=== PATIENT | female | born 1985 | race Caucasian/White ===

== ENCOUNTER 2016-08-24 17:33 | Inpatient (IN) | payer OTHER ==
[~2016-08-24] VITALS: Ht 167.6 cm; Wt 81.6 kg
[~2016-08-24 17:33] MED LIST: ESCI10TA17 PO; FLUT0.15 NAE; LISI40TA PO; MYCO250C7 PO; TRAZ50TA35 PO; ZOLP5TAB6 PO
[2016-08-24] MEDS ORDERED: BENZ100C18 PO (19:40)
[2016-08-24] MEDS ORDERED: DOXY100C76 PO (19:40)
[2016-08-24 20:25] LABS: HEMATOCRIT 18.3 % (37-47); MEAN CELL VOLUME 85.5 fL (80-100); MEAN CORPUSCULAR HGB CONC 33.9 g/dl (32-36); MEAN PLATELET VOLUME 9.3 fL (7.4-10.4); PLATELET COUNT 82 K/uL (130-400); RED BLOOD COUNT 2.14 M/uL (4.2-5.4); WHITE BLOOD COUNT 5.72 K/uL (4.8-10.8)
--- NOTE | 2016-08-24 20:26 | DIAGNOSTIC IMAGING REPORT ---
SINGLE VIEW CHEST CLINICAL HISTORY: Atypical chest pain. The patient feels that the left tunneled catheter changed position. FINDINGS: An AP, portable, upright chest radiograph is compared to study dated 07/12/2016. The examination is mildly degraded by portable technique and patient rotation. A left subclavian central venous catheter has not significantly changed in position from 07/12/2016. The tip projects at the cavoatrial junction. The cardiomediastinal silhouette is unremarkable. The lungs and pleural spaces are clear. No pneumothorax is seen. The bony thorax is grossly intact. IMPRESSION: 1. No acute cardiopulmonary abnormality. 2. The left subclavian central venous catheter has not significantly changed in position from 07/12/2016. Electronically signed by: North Quintero M.D. 08/24/2016 8:25 PM
[2016-08-24 20:36] LABS: BASO % 0.2 %; BASO ABS # 0.01 K/uL (0-0.2); COMPLETE YES; EOS % 2.8 %; IG% 0.2 %; LYMPH % 13.8 %; LYMPH ABS # 0.79 K/uL (1.2-3.4); MONO % 4.4 %; NEUT % 78.6 %; OVALOCYTES 1+
[2016-08-24 20:47] LABS: URINE APPEARANCE CLOUDY (CLEAR); URINE BILIRUBIN NEG (NEG); URINE COLOR YELLOW; URINE EPITHELIAL CELL AUTO >30 /lpf (0-5); URINE NITRITE NEG (NEG); URINE SPECIFIC GRAVITY 1.007 (1.000-1.030); UROBILINOGEN NEG (NEG); ZZUR CULT IF INDIC CLEAN CATCH YES
[2016-08-24 20:51] LABS: MANUAL MICROSCOPIC REQUIRED? NO; REVIEW REQ? NO
[2016-08-24] MEDS ORDERED: HYDROCODONE/ACETAMOPHEN 5/325MG TAB PO STA (21:30)
[2016-08-24 21:43] LABS: PREG INTERNAL NEGATIVE QC NEG CLEAR BACKGROUND; PREG INTERNAL POSITIVE QC POS CONTROL LINE
[2016-08-24] MEDS ORDERED: SODIUM BICARB 8.4% INJ 50 MEQ/50 ML SYR IV STA (22:04)
[2016-08-24] MEDS ORDERED: DXY100 PO (22:44)
--- NOTE | 2016-08-24 22:47 | History and Physical ---
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 Pt reports that she was lifting something yesterday when she felt like her dialysis catheter "moved". Since that time she has been experiencing 8/10 pain around her catheter. The pain is worse with movement. She has not noticed any erythema or drainage from the area. Patient was recently diagnosed with bronchitis and she was started on 10- day course of doxy as well as Tessalon Perles and albuterol inhaler PRN. She notes that her bronchitis sxs are already improving. Pt is supposed to dialyze MWF and follow with Dr. Jo however she has not gone to dialysis for 2 weeks because she "doesn't like leaving her house" and "the van doesn't come sometimes ". Pt has a history of anemia requiring transfusions in the past although she has never had a GI bleed. She denies ever having a colonoscopy or EGD. Pt denies fever/chills, diaphoresis, chest pain, palpitations, syncope, SOB, abd pain, N/V, constipation, diarrhea, melena, hematochezia, dysuria, hematuria, LE edema, calf pain or lightheadedness/dizziness. In the ED, BP is elevated. HgB 6.2. K+ 5.2. Creat 21. Calcium 5.0. CXR negative for acute process with no evidence of catheter displacement. Pt appears stable and will be admitted for further evaluation and treatment. Past Medical/Surgical History Medical Problems: (1) DM2 (diabetes mellitus, type 2) Status: Chronic (2) Focal segmental glomerulosclerosis Status: Chronic (3) HTN (hypertension) Status: Chronic (4) Immunocompromised Status: Chronic (5) Kidney disease Status: Chronic (6) Migraine Status: Chronic Surgical Problems: (1) H/O knee surgery Status: Chronic (2) H/O tubal ligation Status: Chronic (3) H/O: Status: Chronic (4) Kidney transplant status, living related donor Status: Chronic Social History Problems: (1) Kidney transplanted Status: Chronic Family History Heart disease Hypertension Social History Smoking Status: Current Every Day Smoker (3 cigarettes per day down from 1 ppd x 12 years ) Alcohol Use: none Drug Use: none Marital Status: in relationship (engaged ) Housing status: lives with significant other (fiancee) Occupational Status: disabled Immunizations History of Influenza Vaccine: No History of Tetanus Vaccine?: Yes History of Pneumococcal: Yes History of Hepatitis B Vaccine: Unknown Multi-Drug Resistant Organisms History of MDRO: No Allergies Coded Allergies: Cefaclor (Verified Allergy, Unknown, Rash, 08/24/16) Reported by PT. Home Medications Scheduled Calcium Acetate (Phoslo 667 Mg), 1,334 MG PO TIDM Calcium Carbonate (Tums), 3 TAB PO HS Doxycycline Hyclate (Doxycycline Hyclate), 100 MG PO BID Escitalopram (Lexapro), 20 MG PO QAM Famotidine (Pepcid), 40 MG PO QAM Lisinopril (Zestril), 40 MG PO QAM Mirtazapine (Remeron), 30 MG PO HS Mycophenolate Mofetil (Mycophenolate Mofetil), 250 MG PO BID Trazodone Hcl (Trazodone), 50 MG PO HS Scheduled PRN Albuterol Hfa (Ventolin Hfa), 2 PUFFS INH QID PRN for RN Benzonatate (Tessalon Perles), 100 MG PO TID PRN for Cough Review of Systems Constitutional: No chills, No fatigue, No fever, No sweats, No weakness Eyes: No worsening of vision Respiratory: + cough, + problem reported (pain around catheter in L chest ), No shortness of breath, No sputum, No wheezing Cardiovascular: No chest pain, No claudication, No edema, No palpitations Abdomen: No GI bleeding, No constipation, No diarrhea, No nausea, No pain, No vomiting Musculoskeletal: No calf pain, No swelling Genitourinary - Female: No dysuria Neurologic: No weakness Psychiatric: No depression symptoms Endocrine: No fatigue Hematologic / Lymphatic: No abnormal bleeding/bruising Integumentary: No new/changing skin lesions Physical Exam Vital Signs Date Time Temp Pulse Resp B/P Pulse Ox O2 Delivery O2 Flow Rate FiO2 08/24/16 18:58 114 18 165/112 100 Room Air 08/24/16 17:40 37.0 85 18 159/89 100 General Appearance: WD/WN, no apparent distress, + pertinent finding (Pt is laying in bed in NAD) Head: normocephalic, atraumatic Eyes: normal inspection ENT: hearing grossly normal Neck: supple Respiratory/Chest: lungs clear, normal breath sounds, no respiratory distress, + pertinent finding (tenderness to palpation of chest surrounding catheter ) Cardiovascular: regular rate, rhythm, no edema, no murmur Abdomen/GI: normal bowel sounds, non tender, soft Back: normal inspection Extremities/Musculoskelatal: normal inspection, no calf tenderness, no pedal edema Neurologic/Psych: alert, normal mood/affect, oriented x 3 Skin: normal color, warm/dry Diagnostics Laboratory Results Results Past 24 Hours Test 08/24/16 00:00 08/24/16 20:00 08/24/16 21:59 08/24/16 22:04 Range/Units Urine Color YELLOW Urine Appearance CLOUDY CLEAR Urine pH 5.0 4.5-7.5 Urine Specific [place] 1.007 1.000-1.030 Urine Protein 3+ NEG Urine Glucose (UA) TRACE NEG Urine Ketones NEG NEG Urine Occult Blood 1+ NEG Urine Nitrite NEG NEG Urine Bilirubin NEG NEG Urine Urobilinogen NEG NEG Urine Leukocyte Esterase NEG NEG Urine WBC (Auto) 5-10 0-5 /hpf Urine RBC (Auto) 0-4 0-4 /hpf Urine Hyaline Casts (Auto) 0 0-5 /lpf Urine Epithelial Cells (Auto) >30 0-5 /lpf Urine Bacteria (Auto) 1+ NEG White Blood Count 5.72 4.8-10.8 K/uL Red Blood Count 2.14 4.2-5.4 M/uL Hemoglobin 6.2 12.0-16.0 g/dL Hematocrit 18.3 37-47 % Mean Corpuscular Volume 85.5 80-100 fL Mean Corpuscular Hemoglobin 29.0 25-34 pg Mean Corpuscular Hemoglobin Concent 33.9 32-36 g/dl Platelet Count 82 130-400 K/uL Mean Platelet Volume 9.3 7.4-10.4 fL Neutrophils (%) (Auto) 78.6 % Lymphocytes (%) (Auto) 13.8 % Monocytes (%) (Auto) 4.4 % Eosinophils (%) (Auto) 2.8 % Basophils (%) (Auto) 0.2 % Neutrophils # (Auto) 4.50 1.4-6.5 K/uL Lymphocytes # (Auto) 0.79 1.2-3.4 K/uL Monocytes # (Auto) 0.25 0.11-0.59 K/uL Eosinophils # (Auto) 0.16 0-0.5 K/uL Basophils # (Auto) 0.01 0-0.2 K/uL RDW Standard Deviation 43.5 36.4-46.3 fL RDW Coefficient of Variation 13.8 11.5-14.5 % Immature Granulocyte % (Auto) 0.2 % Immature Granulocyte # (Auto) 0.01 0.00-0.02 K/uL Ovalocytes 1+ Sodium Level 137 136-145 mmol/L Potassium Level 5.2 3.5-5.1 mmol/L Chloride Level 102 98-107 mmol/L Carbon Dioxide Level 15 21-32 mmol/L Anion Gap 20.0 3-11 mmol/L Blood Urea Nitrogen 165 7-18 mg/dl Creatinine 21.00 0.60-1.20 mg/dl Est Creatinine Clear Calc Drug Dose 4.3 ml/min Estimated GFR () 2.2 Estimated GFR (Non- 1.9 BUN/Creatinine Ratio 7.9 10-20 Random Glucose 119 70-99 mg/dl Calcium Level 5.0 8.5-10.1 mg/dl Total Bilirubin 0.2 0.2-1 mg/dl Direct Bilirubin 0.2 0-0.2 mg/dl Aspartate Amino Transf (AST/SGOT) 12 15-37 U/L Alanine Aminotransferase (ALT/SGPT) 14 12-78 U/L Alkaline Phosphatase 87 45-117 U/L Total Protein 7.0 6.4-8.2 gm/dl Albumin 3.4 3.4-5.0 gm/dl Lipase 583 73-393 U/L Human Chorionic Gonadotropin, Qual NEG NEG Test 08/24/16 22:06 Range/Units Microbiology Results 08/24/16 Urine Culture, Received Pending Diagnostic Radiology CXR IMPRESSION: 1. No acute cardiopulmonary abnormality. 2. The left subclavian central venous catheter has not significantly changed in position from 07/12/2016. EKG EKG: NSR at 77 bpm with prolonged QT (472) and no ischemic changes; when compared with EKG from 07/13/16 nonspec T wave abnormality in anterolateral leads is no longer present Impression Assessment and Plan ANEMIA R/O GI BLEED pt found to have low HgB; reports history of anemia in past requiring transfusions thought to be related to renal disease; no h/o bleed -admit to telemetry -BP elevated; vitals otherwise stable -Hgb currently 6.2; will continue to monitor with H&H q 8h -check stool for occult blood -transfuse 2 units now; continue to transfuse PRN HgB <8 -consider GI consult -pt appears to be hemodynamically stable -continue to monitor closely HYPERKALEMIA WITH H/O ESRD ON HD in setting of ESRD with acute worsening of kidney function (BUN 70 on 07/13 -> 165 today; Cr 10 on 07/13 -> 21 today) in setting of noncompliance with dialysis -K+ 5.0; continue to monitor -no arrhythmia noted on monitor in ER -EKG NSR with prolonged QT (472); repeat EKG in AM -give IV calcium gluconate for cardiac stabilization; also has hypocalcemia (Ca 5.0) -hold lisinopril for hyperkalemia -counselled patient on importance of compliance with dialysis -consult nephDr. Deysi gann for dialysis HYPOCALCEMIA -Ca 5.0 -check Ionized calcium -give IV calcium gluconate -continue Tums 1500 mg HS CATHETER DISCOMFORT -afebrile with no leukocytosis and no evidence of infection -CXR shows no evidence of catheter displacement -prn pain medicine -consult Dr. Claudio RECENTLY DIAGNOSED WITH BRONCHITIS -afebrile with no leukocytosis -CXR- no infiltrate; lungs benign on exam -cont course of doxy -Tessalon Perles PRN HYPERTENSION -BP elevated to 165/112 -patient non-compliant with meds; did not take lisinopril this AM -will hold lisinopril for hyperkalemia -start hydralazine PRN -monitor ANXIETY/ DEPRESSION -States under control w/ current medication -cont Lexapro -follows with psychiatrist Dr. Adler (?) as outpatient INSOMNIA -cont trazodone and Remeron DVT PROPHYLAXIS -SCDs only in setting of anemia CODE STATUS -FULL CODE status DISPO Pt seen in collaboration with Dr Cunningham. Please see his addendum for further details. Thanks! Assessment/Plan IM ATTENDING : Patient seen and examined. Preceding documentation by Miss Lisa Monroy PA-C reviewed. FINAL ASSESSMENT AND PLAN as follows: 1. Symptomatic anemia hemoglobin drop from baseline history of chronic anemia 2 to ESRD negative FOBT 2. hyperkalemia dialysis noncompliance, ACEI contributory ESRD on HD hx FSGS hx renal tranplant on cellcept 3. ongoing tobacco abuse 4. bronchitis, improving on current doxycycline tx. 5. DM2, diet controlled well controlled as of recent HgA1c. 6. chronic thrombocytopenia. 7. hypocalcemia 2 to CKD PCU transfuse pRBC maintain hemoglobin greater than 7 and/or for symptomatic anemia. Nephrology consult RE dialysis management. hold ACEI for now Replace calcium ISS BG goal 140-180 Patient due for hemoglobin A1c check. Complete doxycycline course. px counselled to stop smoking DVT prophylaxis, SCDs RE thrombocytopenia. Full code.
[2016-08-24 23:00] VITALS: BP 165/98; PULSE 90; TEMP 36.6; O2SAT 100; Ht 167.6 cm; Wt 81.6 kg
[2016-08-24] MEDS ORDERED: GLUCOSE 10 TABS/TUBE PO PRN (23:00)
[2016-08-24] MEDS ORDERED: ALBUT/IPRATROP 3MG/0.5MG NEB 3 ML VIAL INH PRN (23:00)
[2016-08-24] MEDS ORDERED: NITROGLYCERIN 0.4 MG SL PER TAB CHARGE SL PRN (23:00)
[2016-08-24] MEDS ORDERED: GLUCOSE 40% GEL 15 GM TUBE PO PRN (23:00)
[2016-08-24] MEDS ORDERED: GLUCAGON FOR INJ 1 MG VIAL SQ PRN (23:00)
[2016-08-24] MEDS ORDERED: DEXTROSE 50% 50 ML SYR IV PRN (23:00)
[2016-08-24] MEDS ORDERED: FUROSEMIDE INJ 100 MG in SYRINGE 0 ML IV STA (23:01)
[2016-08-24 23:11] LABS: PARTIAL THROMBOPLASTIN RATIO 1.1; PROTHROMBIN TIME (PATIENT) 10.9 SECONDS (9.0-12.0)
[2016-08-24] MEDS ORDERED: DOXYCYCLINE HYCLATE 100 MG CAP PO ONE (23:31)
[2016-08-24 23:44] VITALS: BP 153/89; PULSE 83; TEMP 36.8; O2SAT 99
[2016-08-25] VITALS (29 sets, daily range): BP systolic 100–186; BP diastolic 74–112; PULSE 57–84; TEMP 36.4–37; O2SAT 92–99
[2016-08-25] MEDS ORDERED: CALCIUM GLUCONATE IV STA (00:21)
[2016-08-25] MEDS ORDERED: SODIUM CHLORIDE 0.9% IV STA (00:21)
[2016-08-25] MEDS: MIRTAZAPINE TAB 15 MG TAB PO SCH ×2 (00:26→20:56)
[2016-08-25] MEDS: TRAZODONE HCL 50 MG TAB PO SCH ×2 (00:27→20:57)
--- NOTE | 2016-08-25 01:14 | EMERGENCY ROOM VISIT NOTE ---
History Report prepared by Melibrandall: Sonia De Under the Supervision of: Dr. Theo Irizarry M.D. First contact with patient: 19:18 Chief Complaint: OTHER COMPLAINT Stated Complaint: CATH IS HURTING History of Present Illness The patient is a 30 year old female who presents to the Emergency Room with complaints of persistent pain above her left breast for the past few days. She rates her discomfort as a 6/10. She thinks the pain is because of her dialysis tunnel catheter "has moved". She also thinks the stitches are not holding the catheter in place anymore. The dialysis catheter was placed in April [address] Claudio, [facility]. She reports lifting her child and bathing him may have contributed to the catheter moving out of place, and movement also worsens her pain. Her next dialysis appointment is in 2 days, on Saturday, and she notes the last time she was dialyzed was "awhile ago". The patient also reports she is getting over bronchitis and was started on antibiotics 2 days ago. She still complains of a cough and some congestion. The patient denies LOC, headache, fevers, chills, diaphoresis, visual changes, neck pain, chest pain, breathing difficulties, nausea, vomiting, abdominal pain, back pain, melena, hematochezia, urinary symptoms, numbness, weakness, lymphadenopathy, rash, or other complaints. 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 A total of ten systems were reviewed and were otherwise negative. Past Medical & Surgical Medical Problems: (1) DM2 (diabetes mellitus, type 2) (2) Focal segmental glomerulosclerosis (3) HTN (hypertension) (4) Hyperkalemia (5) Immunocompromised (6) Kidney disease (7) Migraine (8) Symptomatic anemia Surgical Problems: (1) H/O knee surgery (2) H/O tubal ligation (3) H/O: (4) Kidney transplant status, living related donor Social History Problems: (1) Kidney transplanted Family History Heart disease Hypertension Social History Smoking Status: Current Every Day Smoker Alcohol Use: none Drug Use: none Marital Status: in relationship Housing Status: lives with family, lives with significant other Occupation Status: disabled Current/Historical Medications Scheduled Calcium Acetate (Phoslo 667 Mg), 1,334 MG PO TIDM Calcium Carbonate (Tums), 3 TAB PO HS Doxycycline Hyclate (Doxycycline Hyclate), 100 MG PO BID Escitalopram (Lexapro), 20 MG PO QAM Famotidine (Pepcid), 40 MG PO QAM Lisinopril (Zestril), 40 MG PO QAM Mirtazapine (Remeron), 30 MG PO HS Mycophenolate Mofetil (Mycophenolate Mofetil), 250 MG PO BID Trazodone Hcl (Trazodone), 50 MG PO HS Scheduled PRN Albuterol Hfa (Ventolin Hfa), 2 PUFFS INH QID PRN for RN Benzonatate (Tessalon Perles), 100 MG PO TID PRN for Cough Allergies Coded Allergies: Cefaclor (Verified Allergy, Unknown, Rash, 08/24/16) Reported by PT. Physical Exam Vital Signs Date Time Temp Pulse Resp B/P Pulse Ox O2 Delivery O2 Flow Rate FiO2 08/24/16 18:58 114 18 165/112 100 Room Air 08/24/16 17:40 37.0 85 18 159/89 100 Physical Exam GENERAL: Awake, alert, well-appearing, in no acute distress HENT: Normocephalic, atraumatic. Oropharynx unremarkable. EYES: Normal conjunctiva. Sclera non-icteric. NECK: Supple. No nuchal rigidity. FROM. No JVD. RESPIRATORY: Clear to auscultation. CARDIAC: Regular rate, normal rhythm. Extremities warm and well perfused. Pulses equal. ABDOMEN: Soft, non-distended. No tenderness to palpation. No rebound or guarding. No masses. RECTAL: Deferred. MUSCULOSKELETAL: Subcutaneous stitches are both dislodged from the left chest catheter. Mild tenderness, no erythema, no purulent discharge from the area. The bandage covering her catheter was displaced and very dirty. The back is symmetrical on inspection without obvious abnormality. There is no CVA tenderness to palpation. No joint edema. LOWER EXTREMITIES: Calves are equal size bilaterally and non-tender. No edema. No discoloration. NEURO: Normal sensorium. No sensory or motor deficits noted. SKIN: No rash or jaundice noted. Medical Decision & Procedures ER Provider Diagnostic Interpretation: This X-Ray was reviewed and interpreted by myself and the radiologist. SINGLE VIEW CHEST CLINICAL HISTORY: Atypical chest pain. The patient feels that the left tunneled catheter changed position. FINDINGS: An AP, portable, upright chest radiograph is compared to study dated 07/12/2016. The examination is mildly degraded by portable technique and patient rotation. A left subclavian central venous catheter has not significantly changed in position from 07/12/2016. The tip projects at the cavoatrial junction. The cardiomediastinal silhouette is unremarkable. The lungs and pleural spaces are clear. No pneumothorax is seen. The bony thorax is grossly intact. IMPRESSION: 1. No acute cardiopulmonary abnormality. 2. The left subclavian central venous catheter has not significantly changed in position from 07/12/2016. Electronically signed by: North Quintero M.D. 08/24/2016 8:25 PM Laboratory Results 08/24/16 20:00 Red Blood Count 2.14, Mean Corpuscular Volume 85.5, Mean Corpuscular Hemoglobin 29.0, Mean Corpuscular Hemoglobin Concent 33.9, Mean Platelet Volume 9.3, Neutrophils (%) (Auto) 78.6, Lymphocytes (%) (Auto) 13.8, Monocytes (%) (Auto) 4.4, Eosinophils (%) (Auto) 2.8, Basophils (%) (Auto) 0.2, Neutrophils # (Auto) 4.50, Lymphocytes # (Auto) 0.79, Monocytes # (Auto) 0.25, Eosinophils # (Auto) 0.16, Basophils # (Auto) 0.01 08/24/16 20:00 Test 08/24/16 00:00 08/24/16 20:00 Urine Color YELLOW Urine Appearance CLOUDY (CLEAR) Urine pH 5.0 (4.5-7.5) Urine Specific [place] 1.007 (1.000-1.030) Urine Protein 3+ (NEG) Urine Glucose (UA) TRACE (NEG) Urine Ketones NEG (NEG) Urine Occult Blood 1+ (NEG) Urine Nitrite NEG (NEG) Urine Bilirubin NEG (NEG) Urine Urobilinogen NEG (NEG) Urine Leukocyte Esterase NEG (NEG) Urine WBC (Auto) 5-10 /hpf (0-5) Urine RBC (Auto) 0-4 /hpf (0-4) Urine Hyaline Casts (Auto) 0 /lpf (0-5) Urine Epithelial Cells (Auto) >30 /lpf (0-5) Urine Bacteria (Auto) 1+ (NEG) White Blood Count 5.72 K/uL (4.8-10.8) Red Blood Count 2.14 M/uL (4.2-5.4) Hemoglobin 6.2 g/dL (12.0-16.0) Hematocrit 18.3 % (37-47) Mean Corpuscular Volume 85.5 fL (80-100) Mean Corpuscular Hemoglobin 29.0 pg (25-34) Mean Corpuscular Hemoglobin Concent 33.9 g/dl (32-36) Platelet Count 82 K/uL (130-400) Mean Platelet Volume 9.3 fL (7.4-10.4) Neutrophils (%) (Auto) 78.6 % Lymphocytes (%) (Auto) 13.8 % Monocytes (%) (Auto) 4.4 % Eosinophils (%) (Auto) 2.8 % Basophils (%) (Auto) 0.2 % Neutrophils # (Auto) 4.50 K/uL (1.4-6.5) Lymphocytes # (Auto) 0.79 K/uL (1.2-3.4) Monocytes # (Auto) 0.25 K/uL (0.11-0.59) Eosinophils # (Auto) 0.16 K/uL (0-0.5) Basophils # (Auto) 0.01 K/uL (0-0.2) RDW Standard Deviation 43.5 fL (36.4-46.3) RDW Coefficient of Variation 13.8 % (11.5-14.5) Immature Granulocyte % (Auto) 0.2 % Immature Granulocyte # (Auto) 0.01 K/uL (0.00-0.02) Ovalocytes 1+ Prothrombin Time 10.9 SECONDS (9.0-12.0) Prothromb Time International Ratio 1.0 (0.9-1.1) Activated Partial Thromboplast Time 29.2 SECONDS (21.0-31.0) Partial Thromboplastin Ratio 1.1 Anion Gap 20.0 mmol/L (3-11) Est Creatinine Clear Calc Drug Dose 4.3 ml/min Estimated GFR () 2.2 Estimated GFR (Non- 1.9 BUN/Creatinine Ratio 7.9 (10-20) Total Bilirubin 0.2 mg/dl (0.2-1) Direct Bilirubin 0.2 mg/dl (0-0.2) Aspartate Amino Transf (AST/SGOT) 12 U/L (15-37) Alanine Aminotransferase (ALT/SGPT) 14 U/L (12-78) Alkaline Phosphatase 87 U/L (45-117) Total Protein 7.0 gm/dl (6.4-8.2) Albumin 3.4 gm/dl (3.4-5.0) Lipase 583 U/L (73-393) Human Chorionic Gonadotropin, Qual NEG (NEG) Laboratory results reviewed by me Medications Administered Medications (Trade) Dose Ordered Sig/Sachin Route Start Time Stop Time Status Last Admin Dose Admin Acetaminophen/ Hydrocodone Bitart ([place] 5/325 Tab) 1 tab NOW STAT PO 08/24/16 21:30 08/24/16 21:32 DC 08/24/16 21:39 1 TAB Diphenhydramine HCl (Benadryl Cap) 50 mg NOW ONCE PO 08/24/16 21:30 08/24/16 21:32 DC 08/24/16 21:39 50 MG Sodium Bicarbonate (Sodium Bicarbonate 8.4% Inj) 50 ml NOW STAT IV 08/24/16 22:04 08/24/16 22:08 DC 08/25/16 00:51 50 ML ED Course 1922: The patient was evaluated in room A4. A complete history and physical exam was performed. 2019: I discussed the patients case with Dr. Claudio, [facility]. He recommends securing the catheter site. 2114: I reevaluated the patient. She is resting comfortably. I asked her if she has ever undergone a blood transfusion before, and she states she has. I discussed my plan for her to remain in the hospital for further evaluation and management and she verbalized complete understanding. 2129: Benadryl 50 mg PO, [place] 5/325 mg 1 tab PO. 2138: I discussed the patient's case with Dr. Cunningham, [facility] Hospitalist. The patient will be further evaluated. Medical Decision Triage Nursing notes reviewed. The patient's presentation and history were concerning for possible dialysis catheter problem. Etiologies such as catheter dislodgment, catheter infection, metabolic, electrolyte abnormalities, cardiac sources, as well as others were entertained. The patient was evaluated. Clinically she was doing relatively well. Her catheter appeared to be almost in place however it was not sutured. There is no purulence draining. The dressing covering the catheter was barely in place and was very dirty. The patient noted it wasn't changed in quite some time. Nursing change this. A new sterile dressing was placed. Chest x-ray revealed no significant findings. Blood work was obtained as the patient has not been at dialysis in "quite some time". Multiple abnormalities were noted on the patient's blood work. She had severe anemia present. The patient also had thrombocytopenia noted. The patient's creatinine was markedly elevated at 21 as was her BUN markedly elevated. The patient notes recent blood transfusion. The patient was consented for additional blood transfusion. 4 units of packed red blood cells were ordered. The patient's potassium was only minimally elevated. She had a very low calcium and there was some difficulty in measurement therefore a new specimen was ordered. [facility] The patient was evaluated and admitted for further treatment. After admission her calcium was noted to be very low. I did discuss this issue with Dr. Cunningham who was aware and treated the issue. The chart was completed utilizing [employer] Speech voice recognition software. Grammatical errors, random word insertions, pronoun errors, and incomplete sentences are an occasional consequence of this system due to software limitations, ambient noise, and hardware issues. Any formal questions or concerns about the content, text, or information contained within the body of this dictation should be directly addressed to the physician for clarification. Consults Time Called: 2014 Consulting Physician: Dr. Claudio, [facility] Returned Call: 2019 I discussed the patients case with Dr. Claudio, [facility]. He recommends securing the catheter site. Additional Consults: Time Called: 2131 Consulted Physician: Dr. Cunningham [facility] Returned Call: [phone] Additional Comments: I discussed the patient's case with Dr. Cunningham [facility]. The patient will be further evaluated. Impression Primary Impression: Severe anemia Additional Impressions: Renal failure, Complications, dialysis, catheter, mechanical, Hypocalcemia Critical Care I have personally spent greater than 30 minutes of critical care time in the direct management of this patient. This includes bedside care, interpretation of diagnostic studies, and testing, discussion with consultants, patient, and other required patient management activities. This 30 minutes is in excess of all separately billable procedures. Scribe Attestation The scribe's documentation has been prepared under my direction and personally reviewed by me in its entirety. I confirm that the note above accurately reflects all work, treatment, procedures, and medical decision making performed by me. Departure Information Dispostion Being Evaluated By Hospitalist Adolph Landin M.D. (PCP) Patient Instructions A Signature Page, My [facility]
--- NOTE | 2016-08-25 02:27 | HISTORY & PHYSICAL EXAMINATION ---
DATE OF ADMISSION: 08/24/2016 IM ATTENDING : Patient seen and examined. Preceding documentation by Miss Lisa Monroy PA-C reviewed. FINAL ASSESSMENT AND PLAN as follows: 1. Symptomatic anemia hemoglobin drop from baseline history of chronic anemia 2 to ESRD negative FOBT 2. hyperkalemia dialysis noncompliance, ACEI contributory ESRD on HD hx FSGS hx renal tranplant on cellcept 3. ongoing tobacco abuse 4. bronchitis, improving on current doxycycline tx. 5. DM2, diet controlled well controlled as of recent HgA1c. 6. chronic thrombocytopenia. 7. hypocalcemia 2 to CKD PCU transfuse pRBC maintain hemoglobin greater than 7 and/or for symptomatic anemia. Nephrology consult RE dialysis management. hold ACEI for now Replace calcium ISS BG goal 140-180 Patient due for hemoglobin A1c check. Complete doxycycline course. px counselled to stop smoking DVT prophylaxis, SCDs RE thrombocytopenia. Full code. MTDD
[2016-08-25] MEDS: INSULIN ASPART 100 UNITS/ML 3 ML PEN SC SCH ×4 (07:00→20:04)
[2016-08-25] MEDS: CALCIUM ACETATE 667MG GELCAP PO SCH ×3 (07:30→17:13)
[2016-08-25] MEDS: ESCITALOPRAM OXALATE 10 MG TAB PO SCH (08:44)
[2016-08-25] MEDS: MYCOPHENOLATE MOFETIL 250 MG CAP (CELLCEPT) PO SCH ×2 (08:45→19:59)
[2016-08-25] MEDS: FAMOTIDINE 20 MG TAB PO SCH (08:45)
[2016-08-25] MEDS: DOXYCYCLINE HYCLATE 100 MG CAP PO SCH ×2 (08:46→19:59)
[2016-08-25 09:16] LABS: ESTIMATED AVERAGE GLUCOSE 123 mg/dl; HA1C FLAG Normal (Normal)
[2016-08-25] MEDS: TRAMADOL HCL 50 MG TAB PO PRN ×2 (10:41→18:55)
--- NOTE | 2016-08-25 12:13 | Nephrology Consultation ---
Nephrology Consultation Date of Consultation: Aug 25, 2016. Requesting Physician: Brianne Reason for Consultation: Dialysis patient History of Present Illness Patient is a 30 year old female who is S/p failed kidney transplant on Dialysis. she is very Non complaint . No dialysis for last 2 weeks. Came in last night with weakness and not feeling well. labs very abnormal--BUn 175, Creat 21, ca++ 5, hgb 6. had prbc. Vitals are still acceptable though. Says was having some pain around the Cath site Past Medical/Surgical History Medical Problems: (1) Acute electrocardiogram changes Status: Acute (2) Altered mental status Status: Acute (3) Anemia Status: Acute (4) ARF (acute renal failure) Status: Acute (5) Complications, dialysis, catheter, mechanical Status: Acute (6) End stage renal disease Status: Acute (7) Headache Status: Acute (8) Hypocalcemia Status: Acute (9) Hypocalcemia Status: Acute (10) Non-cardiac chest pain Status: Acute (11) Otitis media Status: Acute (12) Renal failure Status: Acute (13) Renal failure Status: Acute (14) Severe anemia Status: Acute (15) Substernal chest pain Status: Acute see problem list Family History Heart disease Hypertension Social History Smoking Status: Current Every Day Smoker Alcohol Use: none Drug Use: none Marital Status: in relationship Housing Status: lives with family, lives with significant other Occupation Status: disabled Allergies Coded Allergies: Cefaclor (Verified Allergy, Unknown, Rash, 08/24/16) Reported by PT. Medications Current Inpatient Medications Medications (Trade) Dose Ordered Sig/Sachin Route Start Time Stop Time Status Last Admin Dose Admin Calcium Acetate (Phoslo Cap) 1,334 mg TIDM PO 08/25/16 07:30 09/24/16 07:59 Calcium Carbonate (Tums Chew Tab) 1,500 mg HS PO 08/25/16 21:00 09/24/16 20:59 Escitalopram Oxalate (Lexapro Tab) 20 mg QAM PO 08/25/16 09:00 09/24/16 08:59 08/25/16 08:44 20 MG Mirtazapine (Remeron Tab) 30 mg HS PO 08/25/16 21:00 09/24/16 20:59 08/25/16 00:26 30 MG Mycophenolate Mofetil (Cellcept Cap) 250 mg BID PO 08/25/16 09:00 09/24/16 08:59 08/25/16 08:45 250 MG Trazodone HCl (Desyrel Tab) 50 mg HS PO 08/25/16 21:00 09/24/16 20:59 08/25/16 00:27 50 MG Acetaminophen (Tylenol Tab) 650 mg Q4H PRN PO 08/24/16 23:00 09/23/16 22:59 Nitroglycerin (Nitrostat Tab) 0.4 mg UD PRN SL 08/24/16 23:00 09/23/16 22:59 Insulin Aspart (novoLOG ASPART) SLIDING SCALE If C... ACHS SC 08/25/16 07:00 09/24/16 06:59 Glucose (Glucose 40% Gel) 15-30 GRAMS 15 GRAMS... UD PRN PO 08/24/16 23:00 09/23/16 22:59 Glucose (Glucose Chew Tab) 4-8 Tablets 4 Tabl... UD PRN PO 08/24/16 23:00 09/23/16 22:59 Dextrose (Dextrose 50% 50ML Syringe) 25-50ML OF 50% DW IV FOR... UD PRN IV 08/24/16 23:00 09/23/16 22:59 Glucagon (Glucagon Inj) 1 mg UD PRN SQ 08/24/16 23:00 09/23/16 22:59 Doxycycline Hyclate (Vibramycin Cap) 100 mg BID PO 08/25/16 09:00 09/03/16 08:59 08/25/16 08:46 100 MG Famotidine (Pepcid Tab) 40 mg QAM PO 08/25/16 09:00 09/24/16 08:59 08/25/16 08:45 40 MG Albuterol/ Ipratropium (Duoneb) 3 ml Q2H PRN INH 08/24/16 23:00 09/23/16 22:59 Tramadol HCl (Ultram Tab) 25 mg Q6H PRN PO 08/24/16 23:00 09/23/16 22:59 Diphenhydramine HCl (Benadryl Cap) 25 mg Q6H PRN PO 08/25/16 00:45 09/24/16 00:44 Home Meds and Scripts Medications Dose Route/Sig Max Daily Dose Days Date Category Doxycycline Hyclate 100 Mg Cap 100 Mg PO BID 08/24/16 Reported Tessalon Perles (Benzonatate) 100 Mg Cap 100 Mg PO TID PRN 08/24/16 Reported Remeron (Mirtazapine) 30 Mg Tab 30 Mg PO HS 08/24/16 Reported Tums (Calcium Carbonate) 500 Mg Chew 3 Tab PO HS 07/05/16 Reported Zestril (Lisinopril) 40 Mg Tab 40 Mg PO QAM 07/05/16 Reported Ventolin Hfa (Albuterol) 200 Puffs/00139 Mcg Aers 2 Puffs INH QID PRN 07/05/16 Reported Mycophenolate Mofetil 250 Mg Cap 250 Mg PO BID 07/05/16 Reported Pepcid (Famotidine) 40 Mg Tab 40 Mg PO QAM 07/05/16 Reported Phoslo 667 Mg (Calcium Acetate) 667 Mg Cap 1,334 Mg PO TIDM 30 06/27/16 Reported Lexapro (Escitalopram Oxalate) 10 Mg Tab 20 Mg PO QAM 06/22/16 Reported Trazodone (Trazodone HCl) 50 Mg Tab 50 Mg PO HS 04/24/16 Rx Review of Systems Respiratory: + cough, + dyspnea at rest, + dyspnea on exertion, + hemoptysis, + problem reported, + see HPI, + shortness of breath, + sputum Abdomen: + GI bleeding, + acolic stools, + constipation, + dark urine, + diarrhea, + dysphagia, + nausea, + odynophagia, + pain, + problem reported, + see HPI, + vomiting Physical Exam Date Time Temp Pulse Resp B/P Pulse Ox O2 Delivery O2 Flow Rate FiO2 08/25/16 08:26 36.6 74 20 158/103 98 08/25/16 08:00 36.7 79 2 153/95 96 Room Air 08/25/16 07:05 36.6 74 15 145/97 98 08/25/16 06:10 36.5 75 15 152/93 97 08/25/16 06:10 36.5 75 15 152/93 97 08/25/16 05:10 36.4 83 16 153/94 97 08/25/16 04:40 36.4 81 15 150/95 98 08/25/16 04:25 36.7 82 17 159/104 98 08/25/16 04:10 Room Air 08/25/16 04:10 36.5 79 20 152/96 08/25/16 02:56 36.5 84 17 161/97 98 Room Air 08/24/16 23:44 36.8 83 17 153/89 99 Room Air 08/24/16 23:00 36.6 90 16 165/98 100 Room Air 08/24/16 22:20 80 16 140/93 100 Room Air 08/24/16 18:58 114 18 165/112 100 Room Air 08/24/16 17:40 37.0 85 18 159/89 100 24-Hour Column 08/25/16 08:00 Intake Total 300 ml Output Total 250 ml Balance 50 ml General Appearance: + mild distress Neck: supple, no adenopathy, no JVD Respiratory/Chest: lungs clear, no accessory muscle use Cardiovascular: regular rate, rhythm, no murmur Abdomen: non tender, soft Extremities: non-tender Neurologic/Psych: alert, oriented x 3 Skin: warm/dry Diagnostics Last 24 Hours Test 08/24/16 20:00 08/24/16 22:38 08/25/16 04:44 08/25/16 07:03 White Blood Count 5.72 K/uL Red Blood Count 2.14 M/uL Hemoglobin 6.2 g/dL Hematocrit 18.3 % Mean Corpuscular Volume 85.5 fL Mean Corpuscular Hemoglobin 29.0 pg Mean Corpuscular Hemoglobin Concent 33.9 g/dl Platelet Count 82 K/uL Mean Platelet Volume 9.3 fL Neutrophils (%) (Auto) 78.6 % Lymphocytes (%) (Auto) 13.8 % Monocytes (%) (Auto) 4.4 % Eosinophils (%) (Auto) 2.8 % Basophils (%) (Auto) 0.2 % Neutrophils # (Auto) 4.50 K/uL Lymphocytes # (Auto) 0.79 K/uL Monocytes # (Auto) 0.25 K/uL Eosinophils # (Auto) 0.16 K/uL Basophils # (Auto) 0.01 K/uL RDW Standard Deviation 43.5 fL RDW Coefficient of Variation 13.8 % Immature Granulocyte % (Auto) 0.2 % Immature Granulocyte # (Auto) 0.01 K/uL Ovalocytes 1+ Prothrombin Time 10.9 SECONDS Prothromb Time International Ratio 1.0 Activated Partial Thromboplast Time 29.2 SECONDS Partial Thromboplastin Ratio 1.1 Sodium Level 137 mmol/L Potassium Level 5.2 mmol/L Chloride Level 102 mmol/L Carbon Dioxide Level 15 mmol/L Anion Gap 20.0 mmol/L Blood Urea Nitrogen 165 mg/dl Creatinine 21.00 mg/dl Est Creatinine Clear Calc Drug Dose 4.3 ml/min Estimated GFR () 2.2 Estimated GFR (Non- 1.9 BUN/Creatinine Ratio 7.9 Random Glucose 119 mg/dl Estimated Average Glucose 123 mg/dl Hemoglobin A1c 5.9 % Calcium Level 5.0 mg/dl < 5.0 mg/dl Total Bilirubin 0.2 mg/dl Direct Bilirubin 0.2 mg/dl Aspartate Amino Transf (AST/SGOT) 12 U/L Alanine Aminotransferase (ALT/SGPT) 14 U/L Alkaline Phosphatase 87 U/L Total Protein 7.0 gm/dl Albumin 3.4 gm/dl Lipase 583 U/L Human Chorionic Gonadotropin, Qual NEG Bedside Glucose 91 mg/dl Test 08/25/16 09:27 Radiology Interpretation: CXR NORMAL, NO PNEUMOTHORAX, NO EFFUSION Assessment & Plan (1) Hypocalcemia Status: Acute Permanent Comment: She has severe Critical hypocalcemia from missing Dialysis for so long. Will give 4gm ivpb now. with dialysis it should improve further. Last Edited By: Jameel Wilson on Aug 25, 2016 12:08 (2) Renal failure Status: Chronic Permanent Comment: She has ESRD but is super non complaint with Dialysis. has missed dialysis for more than 2 weeks. As a result has lot of biochemical indicators of missing Dialysis--very lot Hgb, very low Calcium and very high BUn and creatinine. Because her BUN and creat is so high she is at risk for Dysequlibrium syndrome. So to avoid that will have to slow incremental dialysis. Will do 2hrs today, low qb dialysis. tomorrow will be 3 hrs and then Saturday will be 4 hrs. She is c/o Pain at the CVC site but it looks fine on exam and the Imaging. Will know further with Dialysis. I am surprised that despite such low Ca++ she still looks fine and no Symptoms. Last Edited By: Jameel Wilson on Aug 25, 2016 12:11 (3) Symptomatic anemia Status: Acute Permanent Comment: She missed dialysis so long so did not get any epogen. Now very low hgb. S/p PRBC already. Will give procrit with dialysis tomorrow Last Edited By: Jameel Wilson on Aug 25, 2016 12:11
[2016-08-25 12:22] LABS: HEMATOCRIT 25.3 % (37-47); MEAN CELL VOLUME 87.5 fL (80-100); MEAN CORPUSCULAR HEMOGLOBIN 29.8 pg (25-34); RED BLOOD COUNT 2.89 M/uL (4.2-5.4)
[2016-08-25 12:23] LABS: MEAN PLATELET VOLUME 9.3 fL (7.4-10.4); PLATELET COUNT 77 K/uL (130-400)
[2016-08-25 12:49] LABS: COMPLETE YES; ECHINOCYTES 1+; EOS % 2.5 %; LYMPH % 9.5 %; LYMPH ABS # 0.53 K/uL (1.2-3.4); MONO % 4.5 %; NEUT % 83.5 %; POIKILOCYTOSIS PRESENT
[2016-08-25 12:51] LABS: HEPATITIS B AB NEG
[2016-08-25 13:37] LABS: BUN/CREATININE RATIO 7.7 (10-20); CALCIUM 5.3 mg/dl (8.5-10.1); POTASSIUM 4.8 mmol/L (3.5-5.1)
--- NOTE | 2016-08-25 15:28 | Progress Note ---
Internal Med Progress Note Date of Service: Aug 25, 2016. Provider Documentation: SUBJECTIVE: The patient was seen and examined Denies any complaints Generally weak and lethargic OBJECTIVE: Vital Signs-as noted below Exam: General-Not in any distress Eyes-normal ENT-normal Neck-supple Lungs-Clear to auscultate bilaterally Heart-Regular,no murmur Abdomen-Benign,no masses,bowel sound present Extremities-trace edema bilaterally Neuro-AAOx3 Lab data as noted below. ASSESSMENT & PLAN: Symptomatic Anemia Has Chronic Anemia Secondary to ESRD Has not had Dialysis since the last 2 weeks Significant drop in Hb No evidence of GI bleed-Occult blood is negative -Hgb currently 6.2; will continue to monitor with H&H q 8h -transfuse 2 units now; continue to transfuse PRN HgB <8 -pt appears to be hemodynamically stable -continue to monitor closely HYPERKALEMIA WITH H/O ESRD ON HD Noncompliance with Dialysis-has not had HD for the last 2 weeks No arrhythmia noted on monitor in ER EKG NSR with prolonged QT (472); repeat EKG in AM Give IV calcium gluconate for cardiac stabilization; also has hypocalcemia (Ca 5.0) Hold lisinopril for hyperkalemia Appreciate Nephrology consult HYPOCALCEMIA -Ca 5.0 -check Ionized calcium -give IV calcium gluconate -continue Tums 1500 mg HS -Repeat Calcium remains low Got More calcium during dialysis CATHETER DISCOMFORT -afebrile with no leukocytosis and no evidence of infection -CXR shows no evidence of catheter displacement -prn pain medicine -consult Dr. Claudio RECENTLY DIAGNOSED WITH BRONCHITIS -afebrile with no leukocytosis -CXR- no infiltrate; lungs benign on exam -cont course of doxy -Tessalon Perles PRN HYPERTENSION -BP elevated to 165/112 -patient non-compliant with meds; did not take lisinopril this AM -will hold lisinopril for hyperkalemia -start hydralazine PRN ANXIETY/ DEPRESSION -States under control w/ current medication -cont Lexapro -follows with psychiatrist Dr. Adler (?) as outpatient INSOMNIA -cont trazodone and Remeron DVT PROPHYLAXIS -SCDs only in setting of anemia CODE STATUS -FULL CODE status DISPO Awaited Vital Signs: Date Time Temp Pulse Resp B/P Pulse Ox O2 Delivery O2 Flow Rate FiO2 08/25/16 12:10 36.5 82 16 160/112 98 Room Air 08/25/16 12:00 Room Air 08/25/16 10:30 36.7 81 18 153/103 99 08/25/16 10:00 36.7 75 20 144/94 98 08/25/16 09:45 73 18 156/103 99 08/25/16 09:30 76 18 156/103 99 08/25/16 09:15 80 20 158/105 99 08/25/16 09:15 36.7 80 18 158/105 99 08/25/16 09:00 75 20 154/102 99 08/25/16 08:45 36.7 77 20 153/95 96 08/25/16 08:26 36.6 74 20 158/103 98 08/25/16 08:00 99 Room Air 08/25/16 08:00 36.7 79 2 153/95 96 Room Air 08/25/16 07:05 36.6 74 15 145/97 98 08/25/16 06:10 36.5 75 15 152/93 97 08/25/16 06:10 36.5 75 15 152/93 97 08/25/16 05:10 36.4 83 16 153/94 97 08/25/16 04:40 36.4 81 15 150/95 98 08/25/16 04:25 36.7 82 17 159/104 98 08/25/16 04:10 Room Air 08/25/16 04:10 36.5 79 20 152/96 08/25/16 02:56 36.5 84 17 161/97 98 Room Air 08/24/16 23:44 36.8 83 17 153/89 99 Room Air 08/24/16 23:00 36.6 90 16 165/98 100 Room Air 08/24/16 22:20 80 16 140/93 100 Room Air 08/24/16 18:58 114 18 165/112 100 Room Air 08/24/16 17:40 37.0 85 18 159/89 100 Lab Results: Results Past 24 Hours Test 08/24/16 20:00 08/24/16 22:38 08/25/16 07:03 08/25/16 11:32 Range/Units White Blood Count 5.72 4.8-10.8 K/uL Red Blood Count 2.14 4.2-5.4 M/uL Hemoglobin 6.2 12.0-16.0 g/dL Hematocrit 18.3 37-47 % Mean Corpuscular Volume 85.5 80-100 fL Mean Corpuscular Hemoglobin 29.0 25-34 pg Mean Corpuscular Hemoglobin Concent 33.9 32-36 g/dl Platelet Count 82 130-400 K/uL Mean Platelet Volume 9.3 7.4-10.4 fL Neutrophils (%) (Auto) 78.6 % Lymphocytes (%) (Auto) 13.8 % Monocytes (%) (Auto) 4.4 % Eosinophils (%) (Auto) 2.8 % Basophils (%) (Auto) 0.2 % Neutrophils # (Auto) 4.50 1.4-6.5 K/uL Lymphocytes # (Auto) 0.79 1.2-3.4 K/uL Monocytes # (Auto) 0.25 0.11-0.59 K/uL Eosinophils # (Auto) 0.16 0-0.5 K/uL Basophils # (Auto) 0.01 0-0.2 K/uL RDW Standard Deviation 43.5 36.4-46.3 fL RDW Coefficient of Variation 13.8 11.5-14.5 % Immature Granulocyte % (Auto) 0.2 % Immature Granulocyte # (Auto) 0.01 0.00-0.02 K/uL Ovalocytes 1+ Prothrombin Time 10.9 9.0-12.0 SECONDS Prothromb Time International Ratio 1.0 0.9-1.1 Activated Partial Thromboplast Time 29.2 21.0-31.0 SECONDS Partial Thromboplastin Ratio 1.1 Sodium Level 137 136-145 mmol/L Potassium Level 5.2 3.5-5.1 mmol/L Chloride Level 102 98-107 mmol/L Carbon Dioxide Level 15 21-32 mmol/L Anion Gap 20.0 3-11 mmol/L Blood Urea Nitrogen 165 7-18 mg/dl Creatinine 21.00 0.60-1.20 mg/dl Est Creatinine Clear Calc Drug Dose 4.3 ml/min Estimated GFR () 2.2 Estimated GFR (Non- 1.9 BUN/Creatinine Ratio 7.9 10-20 Random Glucose 119 70-99 mg/dl Estimated Average Glucose 123 mg/dl Hemoglobin A1c 5.9 4.5-5.6 % Calcium Level 5.0 < 5.0 8.5-10.1 mg/dl Total Bilirubin 0.2 0.2-1 mg/dl Direct Bilirubin 0.2 0-0.2 mg/dl Aspartate Amino Transf (AST/SGOT) 12 15-37 U/L Alanine Aminotransferase (ALT/SGPT) 14 12-78 U/L Alkaline Phosphatase 87 45-117 U/L Total Protein 7.0 6.4-8.2 gm/dl Albumin 3.4 3.4-5.0 gm/dl Lipase 583 73-393 U/L Human Chorionic Gonadotropin, Qual NEG NEG Bedside Glucose 91 97 70-90 mg/dl Test 08/25/16 12:05 Range/Units White Blood Count 5.60 4.8-10.8 K/uL Red Blood Count 2.89 4.2-5.4 M/uL Hemoglobin 8.6 12.0-16.0 g/dL Hematocrit 25.3 37-47 % Mean Corpuscular Volume 87.5 80-100 fL Mean Corpuscular Hemoglobin 29.8 25-34 pg Mean Corpuscular Hemoglobin Concent 34.0 32-36 g/dl Platelet Count 77 130-400 K/uL Mean Platelet Volume 9.3 7.4-10.4 fL Neutrophils (%) (Auto) 83.5 % Lymphocytes (%) (Auto) 9.5 % Monocytes (%) (Auto) 4.5 % Eosinophils (%) (Auto) 2.5 % Basophils (%) (Auto) 0.0 % Neutrophils # (Auto) 4.68 1.4-6.5 K/uL Lymphocytes # (Auto) 0.53 1.2-3.4 K/uL Monocytes # (Auto) 0.25 0.11-0.59 K/uL Eosinophils # (Auto) 0.14 0-0.5 K/uL Basophils # (Auto) 0.00 0-0.2 K/uL RDW Standard Deviation 45.6 36.4-46.3 fL RDW Coefficient of Variation 14.0 11.5-14.5 % Immature Granulocyte % (Auto) 0.0 % Immature Granulocyte # (Auto) 0.00 0.00-0.02 K/uL Poikilocytosis PRESENT Echinocytes 1+ Sodium Level 138 136-145 mmol/L Potassium Level 4.8 3.5-5.1 mmol/L Chloride Level 102 98-107 mmol/L Carbon Dioxide Level 13 21-32 mmol/L Anion Gap 23.0 3-11 mmol/L Blood Urea Nitrogen 170 7-18 mg/dl Creatinine 22.00 0.60-1.20 mg/dl Est Creatinine Clear Calc Drug Dose 4.1 ml/min Estimated GFR () 2.1 Estimated GFR (Non- 1.8 BUN/Creatinine Ratio 7.7 10-20 Random Glucose 86 70-99 mg/dl Calcium Level 5.3 8.5-10.1 mg/dl Lipase 435 73-393 U/L Hepatitis B Surface Antigen NEG NEG Hepatitis B Surface Antibody NEG
[2016-08-25 19:45] LABS: BUN/CREATININE RATIO 7.6 (10-20); POTASSIUM 3.5 mmol/L (3.5-5.1)
[2016-08-25 19:46] LABS: CALCIUM 6.1 mg/dl (8.5-10.1)
[2016-08-25] MEDS: CALCIUM CARBONATE 500 MG CHEWABLE PO SCH (19:59)
[2016-08-25] MEDS ORDERED: LISINOPRIL 5 MG TAB PO ONE (23:50)
[2016-08-26] VITALS (21 sets, daily range): BP systolic 145–178; BP diastolic 86–116; PULSE 61–73; TEMP 36.6–37.7; O2SAT 94–98
[2016-08-26] MEDS: ACETAMINOPHEN 325 MG TAB PO PRN ×2 (00:06→06:47)
[2016-08-26 06:56] LABS: HEMATOCRIT 28.7 % (37-47); MEAN CELL VOLUME 84.2 fL (80-100); MEAN CORPUSCULAR HEMOGLOBIN 29.3 pg (25-34); MEAN CORPUSCULAR HGB CONC 34.8 g/dl (32-36); RED BLOOD COUNT 3.41 M/uL (4.2-5.4); WHITE BLOOD COUNT 4.61 K/uL (4.8-10.8)
[2016-08-26 07:00] LABS: MEAN PLATELET VOLUME 9.8 fL (7.4-10.4); PLATELET COUNT 67 K/uL (130-400)
[2016-08-26] MEDS: INSULIN ASPART 100 UNITS/ML 3 ML PEN SC SCH ×4 (07:00→20:36)
[2016-08-26 07:24] LABS: BASO % 0.2 %; BASO ABS # 0.01 K/uL (0-0.2); COMPLETE YES; EOS % 3.3 %; IG% 0.4 %; LYMPH % 11.9 %; LYMPH ABS # 0.55 K/uL (1.2-3.4); MONO % 11.1 %; NEUT % 73.1 %; OVALOCYTES 1+
[2016-08-26 07:36] LABS: BUN/CREATININE RATIO 6.8 (10-20); POTASSIUM 3.8 mmol/L (3.5-5.1)
[2016-08-26] MEDS ORDERED: ONDANSETRON INJ 2 MG/ML 2 ML VIAL ONE (08:13)
[2016-08-26] MEDS ORDERED: ONDANSETRON INJ 2 MG/ML 2 ML VIAL IV PRN (08:15)
[2016-08-26] MEDS: TRAMADOL HCL 50 MG TAB PO PRN ×3 (08:18→21:34)
[2016-08-26] MEDS: CALCIUM ACETATE 667MG GELCAP PO SCH ×3 (08:18→16:45)
[2016-08-26] MEDS: FAMOTIDINE 20 MG TAB PO SCH (08:19)
[2016-08-26] MEDS: MYCOPHENOLATE MOFETIL 250 MG CAP (CELLCEPT) PO SCH ×2 (08:19→21:35)
[2016-08-26] MEDS: ESCITALOPRAM OXALATE 10 MG TAB PO SCH (08:19)
[2016-08-26] MEDS: DOXYCYCLINE HYCLATE 100 MG CAP PO SCH ×2 (08:20→21:35)
[2016-08-26] MEDS ORDERED: COUGH DROP (SUGAR FREE) LOZ 24 LOZ/1 BOX ONE (08:52)
[2016-08-26] MEDS ORDERED: NURSING VERBAL MED ORDER ONE (09:00)
[2016-08-26] MEDS ORDERED: COUGH DROP (SUGAR FREE) LOZ 24 LOZ/1 BOX PO PRN (09:15)
[2016-08-26] MEDS ORDERED: EPOETIN ALFA 10,000 UNITS/ML VIAL IV. SCH (14:00)
--- NOTE | 2016-08-26 14:23 | PROGRESS NOTE ---
DATE: 08/26/2016 DIALYSIS NOTE Reason for seeing the patient is dialysis patient. The patient is tolerating dialysis very well so far. Blood pressure is still on the high side. Most recent blood pressure is 173/96. Dialysis catheter is having some issues. We did have to reverse the line yesterday as well as today. She is not complaining of pain around the catheter site anymore. Complaining of some headache, but unrelated with dialysis. PHYSICAL EXAMINATION: VITAL SIGNS: Blood pressure 173/96, pulse rate 62 per minute, afebrile, room air. HEENT: Mucous membrane is moist. NECK: Supple. No jugular venous distention. CHEST: Bilateral clear to auscultation. CARDIOVASCULAR: S1 and S2 regular. ABDOMEN: Soft, nontender. EXTREMITIES: Show no edema. LABORATORY TESTS: From this morning show hemoglobin of 10, platelet count 67, creatinine is 16, BUN 110, calcium is 6.0 but that was before dialysis. ASSESSMENT AND PLAN: A 30-year-old female with end-stage renal disease, extremely noncompliant. She has not had dialysis for almost 6 weeks now. She still has a lot of biochemical abnormalities related with prolonged noncompliance with dialysis. She is at high risk of disequilibrium syndrome. So we are doing slow gentle incremental dialysis. For today, we will do 3 hours of dialysis on a 3K bath, on the higher calcium bath. Her platelet counts are low, so we would continue to avoid the heparin. Her blood pressure is starting to be high, we will try to take 2.5 kilo today and will try to take more kilo off tomorrow. Calcium is still very low, but expect the calcium to get better in the coming days with more regular dialysis. I would give another 4 gram of IV calcium through piggyback after dialysis today. MTDD
[2016-08-26] MEDS ORDERED: CALCIUM GLUCONATE 10% 4,000 MG in SODIUM CHLORIDE 0.9% 100ML 100 ML IV SCH (15:30)
--- NOTE | 2016-08-26 15:59 | Progress Note ---
Internal Med Progress Note Date of Service: Aug 26, 2016. Provider Documentation: SUBJECTIVE: The patient was seen and examined Denies any complaints Generally weak and lethargic Complains of Headache No associated symptoms OBJECTIVE: Vital Signs-as noted below Exam: General-Not in any distress Eyes-normal ENT-normal Neck-supple Lungs-Clear to auscultate bilaterally Heart-Regular,no murmur Abdomen-Benign,no masses,bowel sound present Extremities-trace edema bilaterally Neuro-AAOx3 Lab data as noted below. ASSESSMENT & PLAN: Headache Continue Ultram Will increase the dose of Ultram Symptomatic Anemia Has Chronic Anemia Secondary to ESRD Has not had Dialysis since the last 2 weeks Significant drop in Hb No evidence of GI bleed-Occult blood is negative -Hgb currently 6.2; will continue to monitor with H&H q 8h -Received a total of 4 units of PRBC -Hb >10 now HYPERKALEMIA WITH H/O ESRD ON HD Noncompliance with Dialysis-has not had HD for the last 2 weeks No arrhythmia noted on monitor in ER EKG NSR with prolonged QT (472); repeat EKG in AM Give IV calcium gluconate for cardiac stabilization; also has hypocalcemia (Ca 5.0) Hold lisinopril for hyperkalemia Appreciate Nephrology consult Normalized HYPOCALCEMIA -Ca 5.0 -check Ionized calcium -give IV calcium gluconate -continue Tums 1500 mg HS -Repeat Calcium remains low -will get More IV calcium today after dialysis CATHETER DISCOMFORT -afebrile with no leukocytosis and no evidence of infection -CXR shows no evidence of catheter displacement -prn pain medicine -consult Dr. Claudio RECENTLY DIAGNOSED WITH BRONCHITIS -afebrile with no leukocytosis -CXR- no infiltrate; lungs benign on exam -cont course of doxy -Tessalon Perles PRN HYPERTENSION -BP elevated to 165/112 -patient non-compliant with meds; did not take lisinopril this AM -will hold lisinopril for hyperkalemia -start hydralazine PRN ANXIETY/ DEPRESSION -States under control w/ current medication -cont Lexapro -follows with psychiatrist Dr. Adler (?) as outpatient INSOMNIA -cont trazodone and Remeron DVT PROPHYLAXIS -SCDs only in setting of anemia CODE STATUS -FULL CODE status DISPO Awaited Vital Signs: Date Time Temp Pulse Resp B/P Pulse Ox O2 Delivery O2 Flow Rate FiO2 08/26/16 15:16 36.8 71 16 147/93 98 Room Air 08/26/16 14:27 36.7 61 165/104 08/26/16 13:45 66 149/86 08/26/16 13:30 62 159/109 08/26/16 13:15 64 155/110 08/26/16 13:00 64 175/99 08/26/16 12:45 63 166/100 08/26/16 12:30 62 173/96 08/26/16 12:15 66 173/101 08/26/16 12:00 Room Air 08/26/16 12:00 64 145/107 08/26/16 11:45 62 167/100 08/26/16 11:30 62 172/108 08/26/16 11:15 65 150/105 08/26/16 11:00 68 159/104 08/26/16 10:52 36.8 72 159/108 08/26/16 08:00 97 Room Air 08/26/16 07:21 36.6 72 18 172/97 97 Room Air 08/26/16 04:07 36.7 73 18 162/92 96 Room Air 08/26/16 04:01 Room Air 08/26/16 00:02 Room Air 08/25/16 23:45 37.0 76 17 176/106 98 Room Air 08/25/16 20:04 Room Air 08/25/16 19:45 36.8 62 20 160/106 96 Room Air 08/25/16 16:00 36.4 57 186/104 08/25/16 16:00 36.6 71 16 100/74 92 Room Air 08/25/16 16:00 92 Room Air Lab Results: Results Past 24 Hours Test 08/25/16 16:23 08/25/16 17:06 08/25/16 18:54 08/25/16 20:04 Range/Units Bedside Glucose 74 94 86 70-90 mg/dl Sodium Level 141 136-145 mmol/L Potassium Level 3.5 3.5-5.1 mmol/L Chloride Level 103 98-107 mmol/L Carbon Dioxide Level 20 21-32 mmol/L Anion Gap 18.0 3-11 mmol/L Blood Urea Nitrogen 114 7-18 mg/dl Creatinine 15.00 0.60-1.20 mg/dl Est Creatinine Clear Calc Drug Dose 6.0 ml/min Estimated GFR () 3.3 Estimated GFR (Non- 2.9 BUN/Creatinine Ratio 7.6 10-20 Random Glucose 93 70-99 mg/dl Calcium Level 6.1 8.5-10.1 mg/dl Test 08/26/16 06:23 08/26/16 06:44 Range/Units White Blood Count 4.61 4.8-10.8 K/uL Red Blood Count 3.41 4.2-5.4 M/uL Hemoglobin 10.0 12.0-16.0 g/dL Hematocrit 28.7 37-47 % Mean Corpuscular Volume 84.2 80-100 fL Mean Corpuscular Hemoglobin 29.3 25-34 pg Mean Corpuscular Hemoglobin Concent 34.8 32-36 g/dl Platelet Count 67 130-400 K/uL Mean Platelet Volume 9.8 7.4-10.4 fL Neutrophils (%) (Auto) 73.1 % Lymphocytes (%) (Auto) 11.9 % Monocytes (%) (Auto) 11.1 % Eosinophils (%) (Auto) 3.3 % Basophils (%) (Auto) 0.2 % Neutrophils # (Auto) 3.37 1.4-6.5 K/uL Lymphocytes # (Auto) 0.55 1.2-3.4 K/uL Monocytes # (Auto) 0.51 0.11-0.59 K/uL Eosinophils # (Auto) 0.15 0-0.5 K/uL Basophils # (Auto) 0.01 0-0.2 K/uL RDW Standard Deviation 47.4 36.4-46.3 fL RDW Coefficient of Variation 15.1 11.5-14.5 % Immature Granulocyte % (Auto) 0.4 % Immature Granulocyte # (Auto) 0.02 0.00-0.02 K/uL Ovalocytes 1+ Sodium Level 138 136-145 mmol/L Potassium Level 3.8 3.5-5.1 mmol/L Chloride Level 103 98-107 mmol/L Carbon Dioxide Level 19 21-32 mmol/L Anion Gap 16.0 3-11 mmol/L Blood Urea Nitrogen 110 7-18 mg/dl Creatinine 16.00 0.60-1.20 mg/dl Est Creatinine Clear Calc Drug Dose 5.7 ml/min Estimated GFR () 3.1 Estimated GFR (Non- 2.6 BUN/Creatinine Ratio 6.8 10-20 Random Glucose 80 70-99 mg/dl Calcium Level 6.0 8.5-10.1 mg/dl Bedside Glucose 91 70-90 mg/dl
[2016-08-26] MEDS ORDERED: LISINOPRIL 20 MG TAB PO ONE (19:49)
[2016-08-26] MEDS: CALCIUM CARBONATE 500 MG CHEWABLE PO SCH (21:34)
[2016-08-26] MEDS: MIRTAZAPINE TAB 15 MG TAB PO SCH (21:35)
[2016-08-26] MEDS: TRAZODONE HCL 50 MG TAB PO SCH (21:35)
[2016-08-27] VITALS (27 sets, daily range): BP systolic 92–168; BP diastolic 60–111; PULSE 71–85; TEMP 36.6–37.2; O2SAT 96–97
[2016-08-27] MEDS: TRAMADOL HCL 50 MG TAB PO PRN ×3 (05:54→20:37)
[2016-08-27] MEDS: INSULIN ASPART 100 UNITS/ML 3 ML PEN SC SCH ×4 (07:00→21:00)
[2016-08-27 07:03] LABS: HEMATOCRIT 31.8 % (37-47); MEAN CELL VOLUME 84.4 fL (80-100); MEAN CORPUSCULAR HGB CONC 35.5 g/dl (32-36); RED BLOOD COUNT 3.77 M/uL (4.2-5.4); WHITE BLOOD COUNT 3.98 K/uL (4.8-10.8)
[2016-08-27 07:08] LABS: MEAN PLATELET VOLUME 9.8 fL (7.4-10.4); PLATELET COUNT 65 K/uL (130-400)
[2016-08-27 07:40] LABS: BASO % 0.3 %; BASO ABS # 0.01 K/uL (0-0.2); COMPLETE YES; EOS % 3.3 %; LYMPH % 12.8 %; LYMPH ABS # 0.51 K/uL (1.2-3.4); MONO % 14.1 %; NEUT % 69.5 %
[2016-08-27 07:51] LABS: BUN/CREATININE RATIO 5.5 (10-20); CALCIUM 7.8 mg/dl (8.5-10.1); MAGNESIUM 2.2 mg/dl (1.8-2.4)
[2016-08-27] MEDS: CALCIUM ACETATE 667MG GELCAP PO SCH ×3 (07:56→16:08)
[2016-08-27] MEDS: MYCOPHENOLATE MOFETIL 250 MG CAP (CELLCEPT) PO SCH ×2 (07:56→20:39)
[2016-08-27] MEDS: DOXYCYCLINE HYCLATE 100 MG CAP PO SCH ×2 (07:57→20:38)
[2016-08-27] MEDS: LISINOPRIL 20 MG TAB PO SCH (07:57)
[2016-08-27] MEDS: ESCITALOPRAM OXALATE 10 MG TAB PO SCH (07:57)
[2016-08-27] MEDS: FAMOTIDINE 20 MG TAB PO SCH (07:57)
[2016-08-27] MEDS ORDERED: LISINOPRIL 5 MG TAB PO SCH (09:00)
--- NOTE | 2016-08-27 12:47 | PROGRESS NOTE ---
DATE: 08/27/2016 SUBJECTIVE: The patient was seen in dialysis. She tolerated dialysis fairly well until the last minute when she had some nausea and had one episode of vomiting. Her blood pressure which has been high is now normal at 124/87. She did not have any cramp. Catheter is working okay, although we did have to reverse it. OBJECTIVE: VITAL SIGNS: Blood pressure 120/92, pulse rate 79, temperature 36.9 degrees Celsius. HEENT: Mucous membranes moist. NECK: Supple. No jugular venous distention. CHEST: Bilaterally clear to auscultation. CARDIOVASCULAR: S1 and S2, regular. ABDOMEN: Soft, nontender. EXTREMITIES: Show no edema. LABORATORY TESTS: From this morning shows a BUN 61, creatinine 11, potassium 4.0, sodium 136. Calcium is now up to 7.8, magnesium 2.2, hemoglobin 11.3, WBC count 3.98, platelet count 65,000. ASSESSMENT AND PLAN: A 30-year-old female with end-stage renal disease who is extremely noncompliant. She has not had regular dialysis for more than 6 weeks. At this time her biochemical indicators are much, much better. Calcium is now essentially normal. Her BUN and creatinine are still high, but that should get somewhat better by tomorrow's labs after full 4 hour dialysis today. Her blood pressure is also now normal. I again had a discussion about how important it is not to miss dialysis. She says she does not like to leave her home. May be psychiatry should also be involved. Her next dialysis will tentatively be on Saturday. MATTHEW
[2016-08-27] MEDS ORDERED: HEPARIN SOD (PORCINE) 1000 UNIT/ML 10 ML VIAL IV SCH ×2 (13:30)
--- NOTE | 2016-08-27 15:11 | Progress Note ---
Internal Med Progress Note Date of Service: Aug 27, 2016. Provider Documentation: SUBJECTIVE: The patient was seen and examined Denies any complaints Generally weak and lethargic-much improved Complains of Headache-better now Started to eat and Drink OBJECTIVE: Vital Signs-as noted below Exam: General-Not in any distress Eyes-normal ENT-normal Neck-supple Lungs-Clear to auscultate bilaterally Heart-Regular,no murmur Abdomen-Benign,no masses,bowel sound present Extremities-trace edema bilaterally Neuro-AAOx3 Lab data as noted below. ASSESSMENT & PLAN: Headache Continue Ultram Will increase the dose of Ultram Feels better with increased dose of Ultram Symptomatic Anemia Has Chronic Anemia Secondary to ESRD Has not had Dialysis since the last 2 weeks Significant drop in Hb No evidence of GI bleed-Occult blood is negative -Hgb currently 6.2; will continue to monitor with H&H q 8h -Received a total of 4 units of PRBC -Hb >10 now HYPERKALEMIA WITH H/O ESRD ON HD Noncompliance with Dialysis-has not had HD for the last 2 weeks No arrhythmia noted on monitor in ER EKG NSR with prolonged QT (472); repeat EKG in AM Give IV calcium gluconate for cardiac stabilization; also has hypocalcemia (Ca 5.0) Hold lisinopril for hyperkalemia Appreciate Nephrology consult Normalized following Dialysis HYPOCALCEMIA -Ca 5.0 -check Ionized calcium -give IV calcium gluconate -continue Tums 1500 mg HS -Received more calcium IV -Improved CATHETER DISCOMFORT -afebrile with no leukocytosis and no evidence of infection -CXR shows no evidence of catheter displacement -prn pain medicine -may need to consult Dr. Claudio RECENTLY DIAGNOSED WITH BRONCHITIS -afebrile with no leukocytosis -CXR- no infiltrate; lungs benign on exam -cont course of doxy -Tessalon Perles PRN HYPERTENSION -BP elevated to 165/112 -patient non-compliant with meds; did not take lisinopril this AM -will hold lisinopril for hyperkalemia -start hydralazine PRN ANXIETY/ DEPRESSION -States under control w/ current medication -cont Lexapro -follows with psychiatrist Dr. Adler (?) as outpatient INSOMNIA -cont trazodone and Remeron DVT PROPHYLAXIS -SCDs only in setting of anemia CODE STATUS -FULL CODE status DISPO PT/OT evaluation Likely home on Saturday after dialysis Vital Signs: Date Time Temp Pulse Resp B/P Pulse Ox O2 Delivery O2 Flow Rate FiO2 08/27/16 13:04 36.8 75 20 137/84 97 Room Air 08/27/16 12:50 36.6 71 121/92 08/27/16 12:15 76 127/77 08/27/16 12:00 73 123/83 08/27/16 12:00 Room Air 08/27/16 11:45 76 124/87 08/27/16 11:30 75 121/85 08/27/16 11:15 76 110/83 08/27/16 11:00 77 117/75 08/27/16 10:45 74 127/94 08/27/16 10:30 77 132/91 08/27/16 10:15 79 120/92 08/27/16 10:00 75 120/88 08/27/16 09:50 118/77 08/27/16 09:45 36.9 73 168/106 08/27/16 09:45 75 92/60 08/27/16 09:35 153/110 08/27/16 09:30 80 119/83 08/27/16 09:15 77 139/99 08/27/16 09:00 80 146/100 08/27/16 08:45 78 168/111 08/27/16 08:30 75 161/110 08/27/16 08:00 97 Room Air 08/27/16 07:52 36.8 76 20 149/100 97 Room Air 08/27/16 04:00 Room Air 08/27/16 03:28 37.2 85 16 146/94 96 Room Air 08/26/16 23:59 Room Air 08/26/16 23:32 37.1 64 17 169/110 94 Room Air 08/26/16 21:33 165/92 08/26/16 20:00 Room Air 08/26/16 19:54 37.7 73 19 178/116 97 Room Air 08/26/16 16:00 Room Air 08/26/16 15:16 36.8 71 16 147/93 98 Room Air Lab Results: Results Past 24 Hours Test 08/26/16 16:19 08/26/16 20:22 08/27/16 06:15 08/27/16 06:31 Range/Units Bedside Glucose 85 94 121 70-90 mg/dl White Blood Count 3.98 4.8-10.8 K/uL Red Blood Count 3.77 4.2-5.4 M/uL Hemoglobin 11.3 12.0-16.0 g/dL Hematocrit 31.8 37-47 % Mean Corpuscular Volume 84.4 80-100 fL Mean Corpuscular Hemoglobin 30.0 25-34 pg Mean Corpuscular Hemoglobin Concent 35.5 32-36 g/dl Platelet Count 65 130-400 K/uL Mean Platelet Volume 9.8 7.4-10.4 fL Neutrophils (%) (Auto) 69.5 % Lymphocytes (%) (Auto) 12.8 % Monocytes (%) (Auto) 14.1 % Eosinophils (%) (Auto) 3.3 % Basophils (%) (Auto) 0.3 % Neutrophils # (Auto) 2.77 1.4-6.5 K/uL Lymphocytes # (Auto) 0.51 1.2-3.4 K/uL Monocytes # (Auto) 0.56 0.11-0.59 K/uL Eosinophils # (Auto) 0.13 0-0.5 K/uL Basophils # (Auto) 0.01 0-0.2 K/uL RDW Standard Deviation 46.0 36.4-46.3 fL RDW Coefficient of Variation 14.9 11.5-14.5 % Immature Granulocyte % (Auto) 0.0 % Immature Granulocyte # (Auto) 0.00 0.00-0.02 K/uL Red Blood Cell Morphology Unremarkable Sodium Level 136 136-145 mmol/L Potassium Level 4.0 3.5-5.1 mmol/L Chloride Level 100 98-107 mmol/L Carbon Dioxide Level 21 21-32 mmol/L Anion Gap 15.0 3-11 mmol/L Blood Urea Nitrogen 61 7-18 mg/dl Creatinine 11.00 0.60-1.20 mg/dl Est Creatinine Clear Calc Drug Dose 8.0 ml/min Estimated GFR () 4.8 Estimated GFR (Non- 4.2 BUN/Creatinine Ratio 5.5 10-20 Random Glucose 117 70-99 mg/dl Calcium Level 7.8 8.5-10.1 mg/dl Magnesium Level 2.2 1.8-2.4 mg/dl Test 08/27/16 13:00 Range/Units Bedside Glucose 90 70-90 mg/dl
[2016-08-27] MEDS ORDERED: POLYETHYLENE (MIRALAX) 17 GM PACK ONE (17:26)
[2016-08-27] MEDS ORDERED: NURSING VERBAL MED ORDER ONE (17:30)
[2016-08-27] MEDS ORDERED: POLYETHYLENE (MIRALAX) 17 GM PACK PO PRN (17:30)
[2016-08-27] MEDS: ACETAMINOPHEN 325 MG TAB PO PRN (19:38)
[2016-08-27] MEDS: TRAZODONE HCL 50 MG TAB PO SCH (20:38)
[2016-08-27] MEDS: MIRTAZAPINE TAB 15 MG TAB PO SCH (20:39)
[2016-08-27] MEDS: CALCIUM CARBONATE 500 MG CHEWABLE PO SCH (20:40)
[2016-08-28 06:19] LABS: BASO % 0.2 %; BASO ABS # 0.01 K/uL (0-0.2); COMPLETE YES; EOS % 3.8 %; HEMATOCRIT 35.8 % (37-47); IG% 0.2 %; LYMPH % 20.9 %; LYMPH ABS # 0.88 K/uL (1.2-3.4); MEAN CELL VOLUME 86.3 fL (80-100); MEAN CORPUSCULAR HEMOGLOBIN 29.9 pg (25-34); MEAN CORPUSCULAR HGB CONC 34.6 g/dl (32-36); MEAN PLATELET VOLUME 10.7 fL (7.4-10.4); MONO % 15.4 %; NEUT % 59.5 %; PLATELET COUNT 72 K/uL (130-400); RED BLOOD COUNT 4.15 M/uL (4.2-5.4); WHITE BLOOD COUNT 4.21 K/uL (4.8-10.8)
[2016-08-28] MEDS: TRAMADOL HCL 50 MG TAB PO PRN ×2 (06:32→21:35)
[2016-08-28 06:59] VITALS: BP 116/78; PULSE 75; TEMP 36.8; O2SAT 93
[2016-08-28 07:10] LABS: BUN/CREATININE RATIO 4.9 (10-20); CALCIUM 8.3 mg/dl (8.5-10.1); CREATININE 8.1 mg/dl (0.60-1.20); POTASSIUM 4.2 mmol/L (3.5-5.1)
[2016-08-28 07:31] VITALS: BP 132/86; PULSE 73; TEMP 36.7
[2016-08-28] MEDS: ESCITALOPRAM OXALATE 10 MG TAB PO SCH (08:05)
[2016-08-28] MEDS: CALCIUM ACETATE 667MG GELCAP PO SCH ×3 (08:05→17:17)
[2016-08-28] MEDS: MYCOPHENOLATE MOFETIL 250 MG CAP (CELLCEPT) PO SCH ×2 (08:05→20:58)
[2016-08-28] MEDS: LISINOPRIL 20 MG TAB PO SCH (08:05)
[2016-08-28] MEDS: DOXYCYCLINE HYCLATE 100 MG CAP PO SCH ×2 (08:06→20:56)
[2016-08-28] MEDS: FAMOTIDINE 20 MG TAB PO SCH (08:06)
[2016-08-28] MEDS: INSULIN ASPART 100 UNITS/ML 3 ML PEN SC SCH ×4 (08:06→20:55)
[2016-08-28] MEDS: POLYETHYLENE (MIRALAX) 17 GM PACK PO SCH (08:10)
--- NOTE | 2016-08-28 13:41 | Nephrology Progress Note ---
Nephrology Progress Note Date of Service: Aug 28, 2016. Subjective 30 yo female who is non-compliant with dialysis. has had gradually increasing dialysis sessions and now on a -- schedule. pt says she had anxiety with leaving the house which is why she did not go to dialysis. however Dr. Adler from [place] recently adjusted her anxiety medications and she is willing to go back to dialysis. Objective Date Time Temp Pulse Resp B/P Pulse Ox O2 Delivery O2 Flow Rate FiO2 08/28/16 08:00 Room Air 08/28/16 07:31 36.7 73 14 132/86 08/28/16 06:59 36.8 75 16 116/78 93 Room Air 08/28/16 00:00 Room Air 08/27/16 23:07 36.9 85 18 133/94 Room Air 08/27/16 17:56 36.9 80 18 140/100 08/27/16 17:36 37.1 79 18 97 08/27/16 17:35 Room Air 08/27/16 16:47 37.1 79 18 129/86 97 Room Air Physical Exam: General-aaox3 Eyes-no scleral icterus ENT-mmm Neck-supple Lungs-cta Heart-rrr Abdomen-bs+ s/nt/nd Extremities-no c/c/e Neuro-nonfocal Current Inpatient Medications Medications (Trade) Dose Ordered Sig/Sachin Route Start Time Stop Time Status Last Admin Dose Admin Calcium Acetate (Phoslo Cap) 1,334 mg TIDM PO 08/25/16 07:30 09/24/16 07:59 08/28/16 12:06 1,334 MG Calcium Carbonate (Tums Chew Tab) 1,500 mg HS PO 08/25/16 21:00 09/24/16 20:59 08/27/16 20:40 1,500 MG Escitalopram Oxalate (Lexapro Tab) 20 mg QAM PO 08/25/16 09:00 09/24/16 08:59 08/28/16 08:05 20 MG Mirtazapine (Remeron Tab) 30 mg HS PO 08/25/16 21:00 09/24/16 20:59 08/27/16 20:39 30 MG Mycophenolate Mofetil (Cellcept Cap) 250 mg BID PO 08/25/16 09:00 09/24/16 08:59 08/28/16 08:05 250 MG Trazodone HCl (Desyrel Tab) 50 mg HS PO 08/25/16 21:00 09/24/16 20:59 08/27/16 20:38 50 MG Acetaminophen (Tylenol Tab) 650 mg Q4H PRN PO 08/24/16 23:00 09/23/16 22:59 08/27/16 19:38 650 MG Nitroglycerin (Nitrostat Tab) 0.4 mg UD PRN SL 08/24/16 23:00 09/23/16 22:59 Insulin Aspart (novoLOG ASPART) SLIDING SCALE If C... ACHS SC 08/25/16 07:00 09/24/16 06:59 Glucose (Glucose 40% Gel) 15-30 GRAMS 15 GRAMS... UD PRN PO 08/24/16 23:00 09/23/16 22:59 Glucose (Glucose Chew Tab) 4-8 Tablets 4 Tabl... UD PRN PO 08/24/16 23:00 09/23/16 22:59 Dextrose (Dextrose 50% 50ML Syringe) 25-50ML OF 50% DW IV FOR... UD PRN IV 08/24/16 23:00 09/23/16 22:59 Glucagon (Glucagon Inj) 1 mg UD PRN SQ 08/24/16 23:00 09/23/16 22:59 Doxycycline Hyclate (Vibramycin Cap) 100 mg BID PO 08/25/16 09:00 09/03/16 08:59 08/28/16 08:06 100 MG Famotidine (Pepcid Tab) 40 mg QAM PO 08/25/16 09:00 09/24/16 08:59 08/28/16 08:06 40 MG Albuterol/ Ipratropium (Duoneb) 3 ml Q2H PRN INH 08/24/16 23:00 09/23/16 22:59 Diphenhydramine HCl (Benadryl Cap) 25 mg Q6H PRN PO 08/25/16 00:45 09/24/16 00:44 Ondansetron HCl (Zofran Inj) 4 mg Q4H PRN IV 08/26/16 08:15 09/25/16 08:14 08/27/16 12:31 4 MG Menthol (Nice Madelyn) 1 madelyn PRN PRN PO 08/26/16 09:15 09/25/16 09:14 08/26/16 15:07 1 MADELYN Tramadol HCl (Ultram Tab) 50 mg Q6H PRN PO 08/26/16 17:00 09/25/16 16:59 08/28/16 06:32 50 MG Lisinopril (Zestril Tab) 20 mg QAM PO 08/27/16 09:00 09/26/16 08:59 08/28/16 08:05 20 MG Polyethylene (Miralax Powder Packet) 17 gm QAM PO 08/28/16 08:00 09/27/16 08:59 08/28/16 08:10 17 GM Polyethylene (Miralax Powder Packet) 17 gm DAILY PRN PO 08/27/16 17:30 09/26/16 17:29 Last 24 Hours Test 08/27/16 16:05 08/27/16 20:47 08/28/16 05:11 08/28/16 07:47 Bedside Glucose 93 mg/dl 94 mg/dl 81 mg/dl White Blood Count 4.21 K/uL Red Blood Count 4.15 M/uL Hemoglobin 12.4 g/dL Hematocrit 35.8 % Mean Corpuscular Volume 86.3 fL Mean Corpuscular Hemoglobin 29.9 pg Mean Corpuscular Hemoglobin Concent 34.6 g/dl Platelet Count 72 K/uL Mean Platelet Volume 10.7 fL Neutrophils (%) (Auto) 59.5 % Lymphocytes (%) (Auto) 20.9 % Monocytes (%) (Auto) 15.4 % Eosinophils (%) (Auto) 3.8 % Basophils (%) (Auto) 0.2 % Neutrophils # (Auto) 2.50 K/uL Lymphocytes # (Auto) 0.88 K/uL Monocytes # (Auto) 0.65 K/uL Eosinophils # (Auto) 0.16 K/uL Basophils # (Auto) 0.01 K/uL RDW Standard Deviation 46.7 fL RDW Coefficient of Variation 14.7 % Immature Granulocyte % (Auto) 0.2 % Immature Granulocyte # (Auto) 0.01 K/uL Sodium Level 134 mmol/L Potassium Level 4.2 mmol/L Chloride Level 99 mmol/L Carbon Dioxide Level 23 mmol/L Anion Gap 12.0 mmol/L Blood Urea Nitrogen 39 mg/dl Creatinine 8.10 mg/dl Est Creatinine Clear Calc Drug Dose 10.9 ml/min Estimated GFR () 7.0 Estimated GFR (Non- 6.0 BUN/Creatinine Ratio 4.9 Random Glucose 83 mg/dl Calcium Level 8.3 mg/dl Test 08/28/16 11:32 Bedside Glucose 137 mg/dl Assessment & Plan ESRD-pt will need to be accepted at the dialysis unit again since she was discharged from the unit. will discuss with showcase maker. anemia of ESRD-hg was in the 6s. now much better in the 12s. Hypocalcemia-on tums. calcium levels improved above 8. psych-pt with anxiety severe enough to cause her to not go to dialysis. followed by Dr. Adler from [place] and had anxiety meds adjusted. question if we need official psych consult while inpatient or not. my concern is that she will not go to dialysis upon discharge.
[2016-08-28 15:27] VITALS: BP 138/84; PULSE 77; TEMP 37.1
--- NOTE | 2016-08-28 15:39 | Progress Note ---
Medicine Progress Note Date & Time of Visit: Aug 28, 2016 at 15:19. Subjective Pt was seen and examined Lying in bed very comfortable watching movie in her phone Pt said that she does have a mild headache Denies any chest pain, palpitation, dizziness and sob discussed with her about to see psych while she is in the hospital she refused to see, she will follow with psych as an outpatient. Objective Last 8 Hrs Date Time Temp Pulse Resp B/P Pulse Ox O2 Delivery O2 Flow Rate FiO2 08/28/16 08:00 Room Air 08/28/16 07:31 36.7 73 14 132/86 Physical Exam: General- No acute distress, very comfortable Head- atraumatic Eyes- PERRL, EOMI ENT- oropharynx clear Neck- supple, no JVD Lungs- clear to auscultation and percussion Heart- regular rhythm; no murmur Abdomen- normal bowel sounds, soft, nontender Extremities- no calf tenderness Neuro- alert, oriented x 3; PERRL, EOMI Skin- warm & dry Laboratory Results: Last 24 Hours Test 08/27/16 16:05 08/27/16 20:47 08/28/16 05:11 08/28/16 07:47 Bedside Glucose 93 mg/dl 94 mg/dl 81 mg/dl White Blood Count 4.21 K/uL Red Blood Count 4.15 M/uL Hemoglobin 12.4 g/dL Hematocrit 35.8 % Mean Corpuscular Volume 86.3 fL Mean Corpuscular Hemoglobin 29.9 pg Mean Corpuscular Hemoglobin Concent 34.6 g/dl Platelet Count 72 K/uL Mean Platelet Volume 10.7 fL Neutrophils (%) (Auto) 59.5 % Lymphocytes (%) (Auto) 20.9 % Monocytes (%) (Auto) 15.4 % Eosinophils (%) (Auto) 3.8 % Basophils (%) (Auto) 0.2 % Neutrophils # (Auto) 2.50 K/uL Lymphocytes # (Auto) 0.88 K/uL Monocytes # (Auto) 0.65 K/uL Eosinophils # (Auto) 0.16 K/uL Basophils # (Auto) 0.01 K/uL RDW Standard Deviation 46.7 fL RDW Coefficient of Variation 14.7 % Immature Granulocyte % (Auto) 0.2 % Immature Granulocyte # (Auto) 0.01 K/uL Sodium Level 134 mmol/L Potassium Level 4.2 mmol/L Chloride Level 99 mmol/L Carbon Dioxide Level 23 mmol/L Anion Gap 12.0 mmol/L Blood Urea Nitrogen 39 mg/dl Creatinine 8.10 mg/dl Est Creatinine Clear Calc Drug Dose 10.9 ml/min Estimated GFR () 7.0 Estimated GFR (Non- 6.0 BUN/Creatinine Ratio 4.9 Random Glucose 83 mg/dl Calcium Level 8.3 mg/dl Test 08/28/16 11:32 Bedside Glucose 137 mg/dl Assessment & Plan Headache Discussed with pt that Ultram can cause rebound headache Stable Consider to add riboflavin or magnesium daily for maintenance for headache Symptomatic Anemia Has Chronic Anemia Secondary to ESRD Hgb on admission was 6.2 Received a total of 4 units of PRBC Hgb today 12.4 Continue monitor h/h and transfuse if h/h drops below 8 HYPERKALEMIA WITH H/O ESRD ON HD Noncompliance with Dialysis No arrhythmia noted on monitor in ER EKG NSR with prolonged QT (472); repeat EKG in AM Received IV calcium gluconate for cardiac stabilization; also has hypocalcemia (Ca 5.0) Hold lisinopril for hyperkalemia Normalized following Dialysis K 4.2 Continue monitor potassium HYPOCALCEMIA -Ca 5.0 on admission -Received IV calcium gluconate -continue Tums 1500 mg HS Continue monitor BMP -Improved CATHETER DISCOMFORT -afebrile with no leukocytosis and no evidence of infection -CXR shows no evidence of catheter displacement -prn pain medicine -Stable RECENTLY DIAGNOSED WITH BRONCHITIS -afebrile with no leukocytosis -CXR- no infiltrate; lungs benign on exam -cont course of doxy -Tessalon Perles PRN HYPERTENSION -BP elevated to 165/112 -patient non-compliant with meds -will resume lisinopril -On hydralazine PRN Continue monitor BP ESRD Had HD last Saturday She will get dialyzed tomorrow discussed with pt to be compliant with HD once discharge from the hospital ANXIETY/ DEPRESSION -States under control w/ current medication -cont Lexapro -follows with psychiatrist Dr. Adler as outpatient Refused to see inpatient psych INSOMNIA -cont trazodone and Remeron DVT PROPHYLAXIS -SCDs in setting of anemia Code Status Full code Current Inpatient Medications: Current Inpatient Medications Medications (Trade) Dose Ordered Sig/Sachin Route Start Time Stop Time Status Last Admin Dose Admin Calcium Acetate (Phoslo Cap) 1,334 mg TIDM PO 08/25/16 07:30 09/24/16 07:59 08/28/16 12:06 1,334 MG Calcium Carbonate (Tums Chew Tab) 1,500 mg HS PO 08/25/16 21:00 09/24/16 20:59 08/27/16 20:40 1,500 MG Escitalopram Oxalate (Lexapro Tab) 20 mg QAM PO 08/25/16 09:00 09/24/16 08:59 08/28/16 08:05 20 MG Mirtazapine (Remeron Tab) 30 mg HS PO 08/25/16 21:00 09/24/16 20:59 08/27/16 20:39 30 MG Mycophenolate Mofetil (Cellcept Cap) 250 mg BID PO 08/25/16 09:00 09/24/16 08:59 08/28/16 08:05 250 MG Trazodone HCl (Desyrel Tab) 50 mg HS PO 08/25/16 21:00 09/24/16 20:59 08/27/16 20:38 50 MG Acetaminophen (Tylenol Tab) 650 mg Q4H PRN PO 08/24/16 23:00 09/23/16 22:59 08/27/16 19:38 650 MG Nitroglycerin (Nitrostat Tab) 0.4 mg UD PRN SL 08/24/16 23:00 09/23/16 22:59 Insulin Aspart (novoLOG ASPART) SLIDING SCALE If C... ACHS SC 08/25/16 07:00 09/24/16 06:59 Glucose (Glucose 40% Gel) 15-30 GRAMS 15 GRAMS... UD PRN PO 08/24/16 23:00 09/23/16 22:59 Glucose (Glucose Chew Tab) 4-8 Tablets 4 Tabl... UD PRN PO 08/24/16 23:00 09/23/16 22:59 Dextrose (Dextrose 50% 50ML Syringe) 25-50ML OF 50% DW IV FOR... UD PRN IV 08/24/16 23:00 09/23/16 22:59 Glucagon (Glucagon Inj) 1 mg UD PRN SQ 08/24/16 23:00 09/23/16 22:59 Doxycycline Hyclate (Vibramycin Cap) 100 mg BID PO 08/25/16 09:00 09/03/16 08:59 08/28/16 08:06 100 MG Famotidine (Pepcid Tab) 40 mg QAM PO 08/25/16 09:00 09/24/16 08:59 08/28/16 08:06 40 MG Albuterol/ Ipratropium (Duoneb) 3 ml Q2H PRN INH 08/24/16 23:00 09/23/16 22:59 Diphenhydramine HCl (Benadryl Cap) 25 mg Q6H PRN PO 08/25/16 00:45 09/24/16 00:44 08/28/16 13:59 25 MG Ondansetron HCl (Zofran Inj) 4 mg Q4H PRN IV 08/26/16 08:15 09/25/16 08:14 08/27/16 12:31 4 MG Menthol (Nice Madelyn) 1 madelyn PRN PRN PO 08/26/16 09:15 09/25/16 09:14 08/26/16 15:07 1 MADELYN Tramadol HCl (Ultram Tab) 50 mg Q6H PRN PO 08/26/16 17:00 09/25/16 16:59 08/28/16 06:32 50 MG Lisinopril (Zestril Tab) 20 mg QAM PO 08/27/16 09:00 09/26/16 08:59 08/28/16 08:05 20 MG Polyethylene (Miralax Powder Packet) 17 gm QAM PO 08/28/16 08:00 09/27/16 08:59 08/28/16 08:10 17 GM Polyethylene (Miralax Powder Packet) 17 gm DAILY PRN PO 08/27/16 17:30 09/26/16 17:29
[2016-08-28 16:00] VITALS: O2SAT 93
[2016-08-28] MEDS: TRAZODONE HCL 50 MG TAB PO SCH (20:56)
[2016-08-28] MEDS: CALCIUM CARBONATE 500 MG CHEWABLE PO SCH (20:57)
[2016-08-28] MEDS: MIRTAZAPINE TAB 15 MG TAB PO SCH (20:58)
[2016-08-29] VITALS (18 sets, daily range): BP systolic 109–136; BP diastolic 59–87; PULSE 67–84; TEMP 36.4–37.1; O2SAT 97
[2016-08-29 06:14] LABS: HEMATOCRIT 33.9 % (37-47); MEAN CELL VOLUME 86.9 fL (80-100); MEAN CORPUSCULAR HEMOGLOBIN 29.7 pg (25-34); MEAN CORPUSCULAR HGB CONC 34.2 g/dl (32-36); WHITE BLOOD COUNT 4.77 K/uL (4.8-10.8)
[2016-08-29 06:18] LABS: MEAN PLATELET VOLUME 10.5 fL (7.4-10.4); PLATELET COUNT 86 K/uL (130-400)
[2016-08-29 06:41] LABS: BASO % 0.4 %; BASO ABS # 0.02 K/uL (0-0.2); COMPLETE YES; EOS % 4.2 %; IG% 0.2 %; LYMPH % 17.2 %; LYMPH ABS # 0.82 K/uL (1.2-3.4); MONO % 14.3 %; NEUT % 63.7 %; OVALOCYTES 1+
[2016-08-29] MEDS: CALCIUM ACETATE 667MG GELCAP PO SCH ×2 (07:50→11:35)
[2016-08-29] MEDS: INSULIN ASPART 100 UNITS/ML 3 ML PEN SC SCH ×2 (07:51→12:15)
[2016-08-29 08:28] LABS: BUN/CREATININE RATIO 5.4 (10-20); CALCIUM 8.2 mg/dl (8.5-10.1); POTASSIUM 4.5 mmol/L (3.5-5.1)
--- NOTE | 2016-08-29 08:37 | Dialysis Progress Note ---
Nephrology Dialysis Note Date of Service: Aug 29, 2016. Subjective 30 yo female who is non-compliant with dialysis. seen on dialysis today. pt doing much better. pt is ready to go home. Objective Date Time Temp Pulse Resp B/P Pulse Ox O2 Delivery O2 Flow Rate FiO2 08/29/16 07:54 36.4 76 18 136/85 08/29/16 00:32 36.6 81 20 128/87 97 Room Air 08/29/16 00:00 Room Air 08/28/16 16:00 93 Room Air 08/28/16 15:27 37.1 77 14 138/84 Room Air Physical Exam: General-aaox3 Eyes-no scleral icterus ENT-mmm Neck-supple Lungs-clear Heart-regular Abdomen-bs+ s/nt/nd Extremities-no c/c/e Neuro-nonfocal Current Inpatient Medications Medications (Trade) Dose Ordered Sig/Sachin Route Start Time Stop Time Status Last Admin Dose Admin Calcium Acetate (Phoslo Cap) 1,334 mg TIDM PO 08/25/16 07:30 09/24/16 07:59 08/29/16 07:50 1,334 MG Calcium Carbonate (Tums Chew Tab) 1,500 mg HS PO 08/25/16 21:00 09/24/16 20:59 08/28/16 20:57 1,500 MG Escitalopram Oxalate (Lexapro Tab) 20 mg QAM PO 08/25/16 09:00 09/24/16 08:59 08/28/16 08:05 20 MG Mirtazapine (Remeron Tab) 30 mg HS PO 08/25/16 21:00 09/24/16 20:59 08/28/16 20:58 30 MG Mycophenolate Mofetil (Cellcept Cap) 250 mg BID PO 08/25/16 09:00 09/24/16 08:59 08/28/16 20:58 250 MG Trazodone HCl (Desyrel Tab) 50 mg HS PO 08/25/16 21:00 09/24/16 20:59 08/28/16 20:56 50 MG Acetaminophen (Tylenol Tab) 650 mg Q4H PRN PO 08/24/16 23:00 09/23/16 22:59 08/27/16 19:38 650 MG Nitroglycerin (Nitrostat Tab) 0.4 mg UD PRN SL 08/24/16 23:00 09/23/16 22:59 Insulin Aspart (novoLOG ASPART) SLIDING SCALE If C... ACHS SC 08/25/16 07:00 09/24/16 06:59 Glucose (Glucose 40% Gel) 15-30 GRAMS 15 GRAMS... UD PRN PO 08/24/16 23:00 09/23/16 22:59 Glucose (Glucose Chew Tab) 4-8 Tablets 4 Tabl... UD PRN PO 08/24/16 23:00 09/23/16 22:59 Dextrose (Dextrose 50% 50ML Syringe) 25-50ML OF 50% DW IV FOR... UD PRN IV 08/24/16 23:00 09/23/16 22:59 Glucagon (Glucagon Inj) 1 mg UD PRN SQ 08/24/16 23:00 09/23/16 22:59 Doxycycline Hyclate (Vibramycin Cap) 100 mg BID PO 08/25/16 09:00 09/03/16 08:59 08/28/16 20:56 100 MG Famotidine (Pepcid Tab) 40 mg QAM PO 08/25/16 09:00 09/24/16 08:59 08/28/16 08:06 40 MG Albuterol/ Ipratropium (Duoneb) 3 ml Q2H PRN INH 08/24/16 23:00 09/23/16 22:59 Diphenhydramine HCl (Benadryl Cap) 25 mg Q6H PRN PO 08/25/16 00:45 09/24/16 00:44 08/28/16 13:59 25 MG Ondansetron HCl (Zofran Inj) 4 mg Q4H PRN IV 08/26/16 08:15 09/25/16 08:14 08/27/16 12:31 4 MG Menthol (Nice Madelyn) 1 madelyn PRN PRN PO 08/26/16 09:15 09/25/16 09:14 08/26/16 15:07 1 MADELYN Tramadol HCl (Ultram Tab) 50 mg Q6H PRN PO 08/26/16 17:00 09/25/16 16:59 08/28/16 21:35 50 MG Lisinopril (Zestril Tab) 20 mg QAM PO 08/27/16 09:00 09/26/16 08:59 08/28/16 08:05 20 MG Polyethylene (Miralax Powder Packet) 17 gm QAM PO 08/28/16 08:00 09/27/16 08:59 08/28/16 08:10 17 GM Polyethylene (Miralax Powder Packet) 17 gm DAILY PRN PO 08/27/16 17:30 09/26/16 17:29 Last 24 Hours Test 08/28/16 11:32 08/28/16 16:33 08/28/16 20:27 08/29/16 05:21 Bedside Glucose 137 mg/dl 90 mg/dl 142 mg/dl White Blood Count 4.77 K/uL Red Blood Count 3.90 M/uL Hemoglobin 11.6 g/dL Hematocrit 33.9 % Mean Corpuscular Volume 86.9 fL Mean Corpuscular Hemoglobin 29.7 pg Mean Corpuscular Hemoglobin Concent 34.2 g/dl Platelet Count 86 K/uL Mean Platelet Volume 10.5 fL Neutrophils (%) (Auto) 63.7 % Lymphocytes (%) (Auto) 17.2 % Monocytes (%) (Auto) 14.3 % Eosinophils (%) (Auto) 4.2 % Basophils (%) (Auto) 0.4 % Neutrophils # (Auto) 3.04 K/uL Lymphocytes # (Auto) 0.82 K/uL Monocytes # (Auto) 0.68 K/uL Eosinophils # (Auto) 0.20 K/uL Basophils # (Auto) 0.02 K/uL RDW Standard Deviation 45.3 fL RDW Coefficient of Variation 14.4 % Immature Granulocyte % (Auto) 0.2 % Immature Granulocyte # (Auto) 0.01 K/uL Ovalocytes 1+ Test 08/29/16 05:24 08/29/16 07:31 Sodium Level 136 mmol/L Potassium Level 4.5 mmol/L Chloride Level 97 mmol/L Carbon Dioxide Level 22 mmol/L Anion Gap 17.0 mmol/L Creatinine 11.00 mg/dl Est Creatinine Clear Calc Drug Dose 8.1 ml/min Estimated GFR () 4.8 Estimated GFR (Non- 4.2 BUN/Creatinine Ratio 5.4 Random Glucose 90 mg/dl Calcium Level 8.2 mg/dl Bedside Glucose 87 mg/dl Assessment & Plan ESRD-case management specialist speaking with dialysis unit to have her accepted again. pt was discharged from dialysis secondary to non-compliance. seen on dialysis today. no fluid removal today. saturday's treatment pt did not tolerate fluid removal. once pt is accepted to unit, ok from renal perspective to be discharged. anemia of ESRD-hg was in the 6s. now improved and is 11.6. hold on procrit today. Hypocalcemia-on tums. calcium levels improved to 8.2.
[2016-08-29] MEDS: MYCOPHENOLATE MOFETIL 250 MG CAP (CELLCEPT) PO SCH (11:35)
[2016-08-29] MEDS: LISINOPRIL 20 MG TAB PO SCH (11:36)
[2016-08-29] MEDS: ESCITALOPRAM OXALATE 10 MG TAB PO SCH (11:36)
[2016-08-29] MEDS: DOXYCYCLINE HYCLATE 100 MG CAP PO SCH (11:36)
[2016-08-29] MEDS: FAMOTIDINE 20 MG TAB PO SCH (11:37)
[2016-08-29] MEDS: POLYETHYLENE (MIRALAX) 17 GM PACK PO SCH (11:37)
--- NOTE | 2016-08-29 12:57 | Progress Note ---
Medicine Progress Note Date & Time of Visit: Aug 29, 2016 at 12:49. Subjective Pt was seen and examined Sitting in bed comfortable with no distress Pt said that she feels fine Denies any chest pain, palpitation, dizziness and SOB Pt said that she is ready to go home today Objective Last 8 Hrs Date Time Temp Pulse Resp B/P Pulse Ox O2 Delivery O2 Flow Rate FiO2 08/29/16 11:10 37.0 79 125/71 08/29/16 11:00 73 109/81 08/29/16 10:45 79 116/82 08/29/16 10:30 79 121/79 08/29/16 10:15 83 117/76 08/29/16 10:00 78 119/81 08/29/16 09:45 80 124/79 08/29/16 09:30 84 113/80 08/29/16 09:15 75 119/77 08/29/16 09:00 71 121/81 08/29/16 08:45 81 122/70 08/29/16 08:30 68 128/59 08/29/16 08:15 70 132/66 08/29/16 08:00 67 130/59 08/29/16 08:00 97 Room Air 08/29/16 07:54 36.4 76 18 136/85 08/29/16 07:45 37.1 72 132/68 Physical Exam: General- No acute distress, very comfortable Head- atraumatic Eyes- PERRL, EOMI ENT- oropharynx clear Neck- supple, no JVD Lungs- clear to auscultation and percussion Heart- regular rhythm; no murmur Abdomen- normal bowel sounds, soft, nontender Extremities- no calf tenderness Neuro- alert, oriented x 3; PERRL, EOMI Skin- warm & dry Laboratory Results: Last 24 Hours Test 08/28/16 16:33 08/28/16 20:27 08/29/16 05:21 08/29/16 05:24 Bedside Glucose 90 mg/dl 142 mg/dl White Blood Count 4.77 K/uL Red Blood Count 3.90 M/uL Hemoglobin 11.6 g/dL Hematocrit 33.9 % Mean Corpuscular Volume 86.9 fL Mean Corpuscular Hemoglobin 29.7 pg Mean Corpuscular Hemoglobin Concent 34.2 g/dl Platelet Count 86 K/uL Mean Platelet Volume 10.5 fL Neutrophils (%) (Auto) 63.7 % Lymphocytes (%) (Auto) 17.2 % Monocytes (%) (Auto) 14.3 % Eosinophils (%) (Auto) 4.2 % Basophils (%) (Auto) 0.4 % Neutrophils # (Auto) 3.04 K/uL Lymphocytes # (Auto) 0.82 K/uL Monocytes # (Auto) 0.68 K/uL Eosinophils # (Auto) 0.20 K/uL Basophils # (Auto) 0.02 K/uL RDW Standard Deviation 45.3 fL RDW Coefficient of Variation 14.4 % Immature Granulocyte % (Auto) 0.2 % Immature Granulocyte # (Auto) 0.01 K/uL Ovalocytes 1+ Sodium Level 136 mmol/L Potassium Level 4.5 mmol/L Chloride Level 97 mmol/L Carbon Dioxide Level 22 mmol/L Anion Gap 17.0 mmol/L Blood Urea Nitrogen 59 mg/dl Creatinine 11.00 mg/dl Est Creatinine Clear Calc Drug Dose 8.1 ml/min Estimated GFR () 4.8 Estimated GFR (Non- 4.2 BUN/Creatinine Ratio 5.4 Random Glucose 90 mg/dl Calcium Level 8.2 mg/dl Test 08/29/16 07:31 08/29/16 12:17 Bedside Glucose 87 mg/dl 93 mg/dl Assessment & Plan Headache Discussed with pt that Ultram can cause rebound headache Stable Consider to add riboflavin or magnesium daily for maintenance for headache Constipation Colace prn for constipation Symptomatic Anemia Has Chronic Anemia Secondary to ESRD Hgb on admission was 6.2 Received a total of 4 units of PRBC Hgb today 11.6 Continue monitor h/h and transfuse if h/h drops below 8 HYPERKALEMIA WITH H/O ESRD ON HD Noncompliance with Dialysis No arrhythmia noted on monitor in ER EKG NSR with prolonged QT (472); repeat EKG in AM Received IV calcium gluconate for cardiac stabilization; also has hypocalcemia (Ca 5.0) Hold lisinopril for hyperkalemia Normalized following Dialysis K 4.5 Continue monitor potassium HYPOCALCEMIA -Ca 5.0 on admission -Received IV calcium gluconate -continue Tums 1500 mg HS Continue monitor BMP -Improved CATHETER DISCOMFORT -afebrile with no leukocytosis and no evidence of infection -CXR shows no evidence of catheter displacement -prn pain medicine -Stable RECENTLY DIAGNOSED WITH BRONCHITIS -afebrile with no leukocytosis -CXR- no infiltrate; lungs benign on exam -cont course of doxy -Tessalon Perles PRN HYPERTENSION -BP elevated to 165/112 -patient non-compliant with meds -will resume lisinopril -On hydralazine PRN Continue monitor BP ESRD She got dialyzed today discussed with pt to be compliant with HD once discharge from the hospital Next HD schedule for Saturday at the [facility] ANXIETY/ DEPRESSION -States under control w/ current medication -cont Lexapro -follows with psychiatrist Dr. Adler as outpatient Refused to see inpatient psych INSOMNIA -cont trazodone and Remeron DVT PROPHYLAXIS -SCDs in setting of anemia Code Status Full code Disposition Will discharge today Follow appointment with her PCP Dr. Aldridge on Sep 06 @ 10:10 am Consultants: Nephrology Current Inpatient Medications: Current Inpatient Medications Medications (Trade) Dose Ordered Sig/Sachin Route Start Time Stop Time Status Last Admin Dose Admin Calcium Acetate (Phoslo Cap) 1,334 mg TIDM PO 08/25/16 07:30 09/24/16 07:59 08/29/16 11:35 1,334 MG Calcium Carbonate (Tums Chew Tab) 1,500 mg HS PO 08/25/16 21:00 09/24/16 20:59 08/28/16 20:57 1,500 MG Escitalopram Oxalate (Lexapro Tab) 20 mg QAM PO 08/25/16 09:00 09/24/16 08:59 08/29/16 11:36 20 MG Mirtazapine (Remeron Tab) 30 mg HS PO 08/25/16 21:00 09/24/16 20:59 08/28/16 20:58 30 MG Mycophenolate Mofetil (Cellcept Cap) 250 mg BID PO 08/25/16 09:00 09/24/16 08:59 08/29/16 11:35 250 MG Trazodone HCl (Desyrel Tab) 50 mg HS PO 08/25/16 21:00 09/24/16 20:59 08/28/16 20:56 50 MG Acetaminophen (Tylenol Tab) 650 mg Q4H PRN PO 08/24/16 23:00 09/23/16 22:59 08/27/16 19:38 650 MG Nitroglycerin (Nitrostat Tab) 0.4 mg UD PRN SL 08/24/16 23:00 09/23/16 22:59 Insulin Aspart (novoLOG ASPART) SLIDING SCALE If C... ACHS SC 08/25/16 07:00 09/24/16 06:59 Glucose (Glucose 40% Gel) 15-30 GRAMS 15 GRAMS... UD PRN PO 08/24/16 23:00 09/23/16 22:59 Glucose (Glucose Chew Tab) 4-8 Tablets 4 Tabl... UD PRN PO 08/24/16 23:00 09/23/16 22:59 Dextrose (Dextrose 50% 50ML Syringe) 25-50ML OF 50% DW IV FOR... UD PRN IV 08/24/16 23:00 09/23/16 22:59 Glucagon (Glucagon Inj) 1 mg UD PRN SQ 08/24/16 23:00 09/23/16 22:59 Doxycycline Hyclate (Vibramycin Cap) 100 mg BID PO 08/25/16 09:00 09/03/16 08:59 08/29/16 11:36 100 MG Famotidine (Pepcid Tab) 40 mg QAM PO 08/25/16 09:00 09/24/16 08:59 08/29/16 11:37 40 MG Albuterol/ Ipratropium (Duoneb) 3 ml Q2H PRN INH 08/24/16 23:00 09/23/16 22:59 Diphenhydramine HCl (Benadryl Cap) 25 mg Q6H PRN PO 08/25/16 00:45 09/24/16 00:44 08/28/16 13:59 25 MG Ondansetron HCl (Zofran Inj) 4 mg Q4H PRN IV 08/26/16 08:15 09/25/16 08:14 08/27/16 12:31 4 MG Menthol (Nice Madelyn) 1 madelyn PRN PRN PO 08/26/16 09:15 09/25/16 09:14 08/26/16 15:07 1 MADELYN Tramadol HCl (Ultram Tab) 50 mg Q6H PRN PO 08/26/16 17:00 09/25/16 16:59 08/28/16 21:35 50 MG Lisinopril (Zestril Tab) 20 mg QAM PO 08/27/16 09:00 09/26/16 08:59 08/29/16 11:36 20 MG Polyethylene (Miralax Powder Packet) 17 gm QAM PO 08/28/16 08:00 09/27/16 08:59 08/29/16 11:37 17 GM Polyethylene (Miralax Powder Packet) 17 gm DAILY PRN PO 08/27/16 17:30 09/26/16 17:29
[2016-08-29] MEDS ORDERED: LSN20 PO (13:04)
--- NOTE | 2016-08-29 13:13 | Discharge Instructions ---
Discharge Instructions Admission Reason for Admission: Hyperkalemia, Symptomatic Anemia Discharge Discharge Diagnosis / Problem: Hyperkalemia, Anemia, ESRD on HD Discharge Goals Goal(s): Decrease discomfort, Improve function, Improve disease control Activity Recommendations Activity Limitations: resume your previous activity . Instructions / Follow-Up Instructions / Follow-Up Follow up with your primary care provider Dr. Aldridge on Sep 06 at 1: 10 pm Next dialysis [facility] at [facility] this Aug 31 at 1:00 pm Continue Doxycycline until 08/31 to complete 10 days course. Current Hospital Diet Patient's current hospital diet: Diabetes Type 2 Diet, Renal Diet Discharge Diet Recommended Diet: Diabetes Type 2 Diet, Renal Diet Pending Studies Studies pending at discharge: no Laboratory Results Hemoglobin A1c Test 08/24/16 20:00 Range/Units Estimated Average Glucose 123 mg/dl Hemoglobin A1c 5.9 H 4.5-5.6 % Lipid Panel Test 06/14/16 06:11 Range/Units Triglycerides Level 92 0-150 mg/dl Cholesterol Level 163 0-200 mg/dl HDL Cholesterol 43 mg/dl Cholesterol/HDL Ratio 3.8 LDL Cholesterol, Calculated 102 mg/dl Medical Emergencies . Who to Call and When: Medical Emergencies: If at any time you feel your situation is an emergency, please call 911 immediately. . Non-Emergent Contact Non-Emergency issues call your: Primary Care Provider Call Non-Emergent contact if: you have any medication questions . . "Provider Documentation" section prepared by Ambreen Lutz. VTE Core Measure Inpt VTE Proph given/why not?: SCD's
[2016-08-29] MEDS ORDERED: DOCU-94 PO (13:15)
--- NOTE | 2016-09-02 23:07 | Discharge Summary ---
Discharge Summary Admission Date: Aug 24, 2016 at 22:14 Discharge Date: Aug 29, 2016 Discharge Disposition: Home Principal Diagnosis: HD catheter site pain Secondary Diagnoses/Problems: ESRD Headache Anemia Hyperkalemia Consultations: Nephrology wound care Medication Reconciliation New Medications: Docusate Sodium (Colace) 100 Mg Cap 100 MG PO BID PRN for Constipation for 15 Days, #30 CAP Lisinopril (Lisinopril) 20 Mg Tab 20 MG PO QAM for 30 Days, TAB Continued Medications: Albuterol Hfa (Ventolin Hfa) 200 Puffs/72532 Mcg Aers 2 PUFFS INH QID PRN for RN, #1 INHALER Benzonatate (Tessalon Perles) 100 Mg Cap 100 MG PO TID PRN for Cough, CAP Calcium Acetate (Phoslo 667 Mg) 667 Mg Cap 1334 MG PO TIDM for 30 Days, CAP 5 Refills Calcium Carbonate (Tums) 500 Mg Chew 3 TAB PO HS Doxycycline Hyclate (Doxycycline Hyclate) 100 Mg Cap 100 MG PO BID Escitalopram (Lexapro) 10 Mg Tab 20 MG PO QAM, TAB Famotidine (Pepcid) 40 Mg Tab 40 MG PO QAM, TAB Mirtazapine (Remeron) 30 Mg Tab 30 MG PO HS, #30 Mycophenolate Mofetil (Mycophenolate Mofetil) 250 Mg Cap 250 MG PO BID Trazodone Hcl (Trazodone) 50 Mg Tab 50 MG PO HS, #30 2 Refills Discontinued Medications: Lisinopril (Zestril) 40 Mg Tab 40 MG PO QAM, TAB Admission Information HPI (per Admitting provider): This is a 30 y/o female with 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 Pt reports that she was lifting something yesterday when she felt like her dialysis catheter "moved". Since that time she has been experiencing 8/10 pain around her catheter. The pain is worse with movement. She has not noticed any erythema or drainage from the area. Patient was recently diagnosed with bronchitis and she was started on 10- day course of doxy as well as Tessalon Perles and albuterol inhaler PRN. She notes that her bronchitis sxs are already improving. Pt is supposed to dialyze MWF and follow with Dr. Jo however she has not gone to dialysis for 2 weeks because she "doesn't like leaving her house" and "the van doesn't come sometimes ". Pt has a history of anemia requiring transfusions in the past although she has never had a GI bleed. She denies ever having a colonoscopy or EGD. Pt denies fever/chills, diaphoresis, chest pain, palpitations, syncope, SOB, abd pain, N/V, constipation, diarrhea, melena, hematochezia, dysuria, hematuria, LE edema, calf pain or lightheadedness/dizziness. In the ED, BP is elevated. HgB 6.2. K+ 5.2. Creat 21. Calcium 5.0. CXR negative for acute process with no evidence of catheter displacement. Pt appears stable and will be admitted for further evaluation and treatment. Physical Exam (per Admitting): General Appearance: WD/WN, no apparent distress, + pertinent finding (Pt is laying in bed in NAD) Head: normocephalic, atraumatic Eyes: normal inspection ENT: hearing grossly normal Neck: supple Respiratory/Chest: lungs clear, normal breath sounds, no respiratory distress, + pertinent finding (tenderness to palpation of chest surrounding catheter ) Cardiovascular: regular rate, rhythm, no edema, no murmur Abdomen/GI: normal bowel sounds, non tender, soft Back: normal inspection Extremities/Musculoskelatal: normal inspection, no calf tenderness, no pedal edema Neurologic/Psych: alert, normal mood/affect, oriented x 3 Skin: normal color, warm/dry Hospital Course Headache Discussed with pt that Ultram can cause rebound headache Stable Consider to add riboflavin or magnesium daily for maintenance for headache Constipation Colace prn for constipation Symptomatic Anemia Has Chronic Anemia Secondary to ESRD Hgb on admission was 6.2 Received a total of 4 units of PRBC Hgb today 11.6 Continue monitor h/h and transfuse if h/h drops below 8 HYPERKALEMIA WITH H/O ESRD ON HD Noncompliance with Dialysis No arrhythmia noted on monitor in ER EKG NSR with prolonged QT (472); repeat EKG in AM Received IV calcium gluconate for cardiac stabilization; also has hypocalcemia (Ca 5.0) Hold lisinopril for hyperkalemia Normalized following Dialysis K 4.5 Continue monitor potassium HYPOCALCEMIA -Ca 5.0 on admission -Received IV calcium gluconate -continue Tums 1500 mg HS Continue monitor BMP -Improved CATHETER DISCOMFORT -afebrile with no leukocytosis and no evidence of infection -CXR shows no evidence of catheter displacement -prn pain medicine -Stable RECENTLY DIAGNOSED WITH BRONCHITIS -afebrile with no leukocytosis -CXR- no infiltrate; lungs benign on exam -cont course of doxy -Tessalon Perles PRN HYPERTENSION -BP elevated to 165/112 -patient non-compliant with meds -will resume lisinopril -On hydralazine PRN Continue monitor BP ESRD She got dialyzed today discussed with pt to be compliant with HD once discharge from the hospital Next HD schedule for Saturday at the [facility] ANXIETY/ DEPRESSION -States under control w/ current medication -cont Lexapro -follows with psychiatrist Dr. Adler as outpatient Refused to see inpatient psych INSOMNIA -cont trazodone and Remeron DVT PROPHYLAXIS -SCDs in setting of anemia Code Status Full code Disposition Will discharge today Follow appointment with her PCP Dr. Aldridge on Sep 06 @ 10:10 am Total time spent on discharge = 35 minutes This includes examination of the patient, discharge planning, medication reconciliation, and communication with other providers. Discharge Instructions Discharge Instructions Admission Reason for Admission: Hyperkalemia, Symptomatic Anemia Discharge Discharge Diagnosis / Problem: Hyperkalemia, Anemia, ESRD on HD Discharge Goals Goal(s): Decrease discomfort, Improve function, Improve disease control Activity Recommendations Activity Limitations: resume your previous activity . Instructions / Follow-Up Instructions / Follow-Up Follow up with your primary care provider Dr. Aldridge on Sep 06 at 1: 10 pm Next dialysis schedule at [facility] this Aug 31 at 1:00 pm Continue Doxycycline until 08/31 to complete 10 days course. Current Hospital Diet Patient's current hospital diet: Diabetes Type 2 Diet, Renal Diet Discharge Diet Recommended Diet: Diabetes Type 2 Diet, Renal Diet Pending Studies Studies pending at discharge: no Laboratory Results Hemoglobin A1c Test 08/24/16 20:00 Range/Units Estimated Average Glucose 123 mg/dl Hemoglobin A1c 5.9 H 4.5-5.6 % Lipid Panel Test 06/14/16 06:11 Range/Units Triglycerides Level 92 0-150 mg/dl Cholesterol Level 163 0-200 mg/dl HDL Cholesterol 43 mg/dl Cholesterol/HDL Ratio 3.8 LDL Cholesterol, Calculated 102 mg/dl Medical Emergencies . Who to Call and When: Medical Emergencies: If at any time you feel your situation is an emergency, please call 911 immediately. . Non-Emergent Contact Non-Emergency issues call your: Primary Care Provider Call Non-Emergent contact if: you have any medication questions . . "Provider Documentation" section prepared by Ambreen Lutz. VTE Core Measure Inpt VTE Proph given/why not?: SCD's Additional Copies To Adolph Aldridge M.D.
[2016-09-04 09:54] LABS: BUN/CREATININE RATIO 7.9 (10-20)
[2016-09-04 09:55] LABS: POTASSIUM 5.2 mmol/L (3.5-5.1)
[2016-09-04] MEDS ORDERED: OXYC-57 PO (16:57)
[2016-11-21] MEDS ORDERED: CRG3125 PO (16:28)
[2016-11-21] MEDS ORDERED: CLC6 PO (16:28)
[2016-12-16] MEDS ORDERED: FAMO40TA6 PO (12:28)
[2016-12-16] MEDS ORDERED: CALC500C3 PO (12:29)
[2016-12-16] MEDS ORDERED: CALC667C4 PO (19:46)
[2017-01-25] MEDS ORDERED: CRG625 PO (11:09)
[2017-02-06] MEDS ORDERED: LISI40TA PO (07:33)
[2017-02-12] MEDS ORDERED: AMOX875T PO (12:45)
[2017-02-14] MEDS ORDERED: DOXY100C76 PO (15:33)
[2017-02-21] MEDS ORDERED: OXYC-57 PO (15:28)
[2017-02-28] MEDS ORDERED: AMLO-114 PO (08:43)
[2017-03-06] MEDS ORDERED: CARV3.122 PO (10:28)
[2017-03-20] MEDS ORDERED: DOXY100T PO (14:35)
[2017-03-20] MEDS ORDERED: TOBR0.3S4 OPL (14:35)
[2017-05-15] MEDS ORDERED: VNTHFA/IN INH (12:28)
[2017-05-15] MEDS ORDERED: LISI-725 PO (13:43)
[2017-05-15] MEDS ORDERED: CALC500C3 PO (13:50)
[2017-05-15] MEDS ORDERED: NRV/5 PO (15:17)
[2017-05-15] MEDS ORDERED: CRG125 PO (15:17)
[2017-05-15] MEDS ORDERED: BENZ100C7 PO (15:22)
[2017-05-15] MEDS ORDERED: FLUT0.15 NAE (15:33)
[2017-05-15] MEDS ORDERED: CALC0.5C17 PO (18:14)
[2017-05-15] MEDS ORDERED: MIRT30TA3 PO (19:24)
[2017-05-15] MEDS ORDERED: TRAZ50TA35 PO (19:56)
[2017-05-15] MEDS ORDERED: CALC667C4 PO ×2 (19:56→21:12)
[2017-05-15] MEDS ORDERED: LXP/20 PO (21:08)
[2017-05-15] MEDS ORDERED: FAMO40TA6 PO (23:12)
[2017-05-17] MEDS ORDERED: CRG25 PO (14:53)
[2017-05-21] MEDS ORDERED: APR25 PO (00:24)
[2017-05-21] MEDS ORDERED: APR50 PO (15:28)
[2017-05-21] MEDS ORDERED: ATV1 PO (15:28)
[2017-05-21] MEDS ORDERED: ativan PO (16:06)
== END 2016-08-29 15:35 | disposition home or self-care (01) | DRG 640 ==
LOC: ENRESERVTM → ENRESERVDT → C.EDB 17:35 → C.2T 22:14 → C.4E 08-27 17:37
PROVIDERS: ADMIT Internal Medicine; ATTEND Internal Medicine
DX: E87.5 Hyperkalemia (principal); N18.6 End stage renal disease; Z94.0 Kidney transplant status; D84.9 Immunodeficiency, unspecified; I12.0 Hypertensive chronic kidney disease with stage 5 chronic kidney disease or end stage renal disease; D63.1 Anemia in chronic kidney disease; E11.22 Type 2 diabetes mellitus with diabetic chronic kidney disease; J40 Bronchitis, not specified as acute or chronic; F17.210 Nicotine dependence, cigarettes, uncomplicated; D69.6 Thrombocytopenia, unspecified; F41.9 Anxiety disorder, unspecified; G47.00 Insomnia, unspecified; Z99.2 Dependence on renal dialysis; F32.9 Major depressive disorder, single episode, unspecified; Z91.19 Patient's noncompliance with other medical treatment and regimen; Z91.15 Patient's noncompliance with renal dialysis; E83.51 Hypocalcemia; R51 Headache; G43.909 Migraine, unspecified, not intractable, without status migrainosus; K59.00 Constipation, unspecified; Z79.899 Other long term (current) drug therapy

== ENCOUNTER → 2016-09-04 | Day surgery (SDC) | payer OTHER ==
[~2016-09-04] VITALS: Ht 167.6 cm; Wt 83.2 kg
[~2016-09-04] MED LIST changes: +ACET-1256 PO; +AMLO-114 PO; +AMOX875T PO; +APR25 PO; +APR50 PO; +ATROPINE SULFATE 0.1 MG/ML 5ML SYR IV PRN; +ATV1 PO; +BENZ100C18 PO; +BENZ100C7 PO; +BENZ100C84 PO; +CALC0.5C17 PO; +CALC500C3 PO; +CALC667C4 PO; +CARV3.122 PO; +CLC6 PO; +CLINDAMYCIN 600 MG/54 ML D5W IV SCH; +CMD/25 PO; +CMD3 PO; +COLC1TAB25 PO; +CRG125 PO; +CRG25 PO; +CRG3125 PO; +CRG625 PO; +D5W AND 1/2NSS 1,000 ML IV ONE; +DOCU-94 PO; +DOXY100C76 PO; +DOXY100T PO; +DXY100 PO; +ESCI1TAB10 PO; +EpHEDrine SULFATE INJ 50 MG/ML AMP IV PRN; +FAMO40TA6 PO; +FENTANYL CITRATE INJ 50 MCG/1 ML 2 ML VIAL IV PRN; +FENTANYL CITRATE INJ 50 MCG/1 ML 2 ML VIAL ONE; +HEPARIN SOD (PORCINE) 1000 UNIT/ML 10 ML VIAL FLUSH ONE; +HYDR-5688 PO; +HYDROmorphone INJ 1 MG/ML SYR IV PRN; +LABETALOL HCL IV 5 MG/ML 20ML IV PRN; +LISI-725 PO; +LISI20TA3 PO; +LSN20 PO; +LSN40 PO; +LXP/20 PO; +MEPERIDINE HCL 25 MG/ML CARP IV PRN; +MIDAZOLAM HCL 1 MG/ML 2ML VIAL ONE; +MIRT30TA3 PO; +MIX: 0.5% BUPIVACAINE W/EPI 1:200,000+1%LIDO 50:50 INJ ONE; +NRV/10 PO; +NRV/5 PO; +NURSING VERBAL MED ORDER ONE; +ONDA4TAB10 SL; +ONDANSETRON INJ 2 MG/ML 2 ML VIAL IV PRN; +OXYC-57 PO; +OXYC1TAB3 PO; +PRED10TA; +PROPOFOL IV EMULSION 10 MG/ML 20 ML VIAL IV ONE; +SODIUM CHLORIDE 0.9% 1000ML 1,000 ML IV SCH; +SULF800T23 PO; +TOBR0.3S4 OPL; +TRAM-10 PO; +VNTHFA/IN INH; +ZFRODT4HP PO; -ZOLP5TAB6 PO; +ativan PO
--- NOTE | 2016-09-04 06:17 | History and Physical ---
History & Physical Chief Complaint: End stage renal disease History of Present Illness The patient is a 29 year old female with hx of IDDM and renal failure and renal transplant, with a permcath in place. She has a failed fistula. She is admitted for creation of a new fistula. Denies GARNETT, fever, chills, chest pain, SOB, abd pain, N/V, rest pain, claudication, other complaints. Allergies Cefaclor (Verified Allergy, Unknown, Rash, 05/18/15) Reported by PT. Surgical / Medical History Hx Cardiac Surgery: No Hx Abdominal Surgery: No Hx Cancer Surgery: No Hx Thoracic Surgery: No Hx Orthopedic: Yes Hx Urinary Tract Surgery: No HX Other Surgery: Yes Past Medical/Surgical History: Diabetes, Kidney Disease Family History Heart disease Hypertension Social History Smoking Status: Former Smoker Hx Tobacco Use In Past Year?: No Hx Alcohol Use - Type & Amnt: Yes (VODKA 1GLASS EVERY SO OFTEN) Hx Substance Use -Type & Amnt: No Review of Systems Constitutional: No chills, No fever, No malaise Skin: No change in color Eyes: No visual changes ENMT: No sore throat Respiratory: No BADILLO, No cough, No hemoptysis, No short of breath Cardiovascular: No chest pain, No edema, No intermittent claudication, No palpitations, No syncope Gastrointestinal: No abdominal pain, No nausea Genitourinary - Female: + dysuria, + hematuria Neurologic: No dizziness, No lethargy, No numbness, No tingling Physical Exam: Constitutional: General Apperance: well-nourished, well-developed, obese (morbidly) Level of Distress: NAD Ambulation: ambulating normally Psychiatric: Mental Status: active & alert, normal mood, normal affect Orientation: oriented except where noted, to time, to place, to person Memory: recent memory normal, remote memory normal Head: normocephalic, atraumatic Eyes: EOM: EOMI ENMT: normal ENT inspection, hearing grossly normal Neck: supple, trachea midline Lungs: Respiratory effort: no dyspnea Auscultation: breath sounds normal, no wheezing, no rales/crackles, no rhonchi Cardiovascular: Apical Impulse: not displaced Heart Auscultation: RRR, no murmurs, no rubs, no gallops Peripheral Pulses: Pulses: full and equal, in all extremities except if noted Bruits: none appreciated Carotid Pulse: normal on the left, normal on the right Brachial Pulses: normal on the left, normal on the right Radial Pulse: normal on the left, normal on the right, pertinent finding (R wrist AVF site and left antecubital site without thrill/bruit noted. Incision well healed. ) Femoral Pulse: normal on the left, normal on the right Posterior Tibialis Pulse: normal on the left, normal on the right Dorsalis Pedis Pulse: normal on the left, normal on the right Abdomen: Bowel Sounds: normal Inspection & Palpation: soft, non-distended, no tenderness, guarding & rebound Musculoskeletal: normal strength (5/5 throughout), normal tone Extremities: Upper Right: no cyanosis, no edema, no varicosities Upper Left: no cyanosis, no edema, no varicosities Lower Right: no cyanosis, no edema, no varicosities Lower Left: no cyanosis, no edema, no varicosities Neurologic: Cranial Nerves: grossly intact Sensation: grossly intact ASSESSMENT and PLAN: Imp: End stage renal disease Plan: Patient admitted for creation of left antecubital fistula. I have discussed the risks options and benefits of the procedure with the patient. The patient understands the risks options and benefits and agrees to the procedure.
[2016-09-04 13:15] VITALS: BP 166/91; PULSE 81; TEMP 36.7; O2SAT 99; Ht 167.6 cm; Wt 83.2 kg
[2016-09-04 14:02] LABS: BUN/CREATININE RATIO 5.4 (10-20); CALCIUM 7.3 mg/dl (8.5-10.1); CREATININE 8.6 mg/dl (0.60-1.20); POTASSIUM 5.1 mmol/L (3.5-5.1)
--- NOTE | 2016-09-04 14:20 | History & Physical Bridge Note ---
H&P Re-Evaluation Bridge Note: I have examined the patient, reviewed the History & Physical and in the interval since the performance of the History & Physical I have noted the following changes of clinical significance: No changes noted
--- NOTE | 2016-09-04 16:56 | [facility] Post Operative Brief Note ---
Immediate Operative Summary Operative Date Sep 04, 2016. Pre-Operative Diagnosis End stage renal disease Post-Operative Diagnosis End stage renal disease Procedure(s) Performed Left antecubital cephalic vein fistula creation Surgeon Dr. Claudio Feed Manager Surgeon(s) Shoshana Toledo, ROSY Estimated Blood Loss 15 Findings thrill present Specimens none Anesthesia MAC Complication(s) None Disposition Recovery Room / PACU
--- NOTE | 2016-09-04 16:58 | Discharge Instructions ---
Discharge Instructions Visit Reason for Visit: End Stage Renal Disease Discharge Discharge Diagnosis / Problem: End stage renal disease Discharge Goals Goal(s): Therapeutic intervention Activity Recommendations Activity Limitations: per Instructions/Follow-up section Anesthesia . Post Anesthesia Instructions: If you have had General Anesthesia or IV Sedation: * Do not drive today. * Resume driving when surgeon permits. * Do not make important decisions or sign legal documents today. * Call surgeon for: 1. Temperature elevations greater than 101 degrees F. 2. Uncontrollable pain. 3. Excessive bleeding. 4. Persistent nausea and vomiting. 5. Medication intolerance (nausea, vomiting or rash). * For nausea and vomiting use only clear liquids such as: tea, soda, bouillon until nausea subsides, then gradually increase diet as tolerated. * If you have any concerns or questions, call your surgeon's office. If physician is unavailable and it is an emergency, call 911 or go to the nearest emergency room. . Instructions / Follow-Up Instructions / Follow-Up Call [phone] to schedule a follow up appointment if one not already scheduled. ACTIVITY RECOMMENDATIONS: See Above SPECIAL CARE INSTRUCTIONS: Call your doctor if: * Temperature above 101 degrees * Pain not relieved by pain medicine ordered * There is increased drainage or redness from any incision * You have any unanswered questions or concerns. Diet Recommendations Recommended Home Diet: resume previous diet Procedures Procedures Performed: Left antecubital cephalic vein fistula creation Pending Studies Studies pending at discharge: no Medical Emergencies . Who to Call and When: Medical Emergencies: If at any time you feel your situation is an emergency, please call 911 immediately. . Non-Emergent Contact Non-Emergency issues call your: Surgeon . . "Provider Documentation" section prepared by Michael Claudio.
--- NOTE | 2016-09-04 17:27 | Anesthesiology Progress Note ---
Anesthesia Post Op Note Date & Time Sep 04, 2016 at 17:26 Vital Signs Pain Intensity: 2 Vital Signs Past 12 Hours Date Time Temp Pulse Resp B/P Pulse Ox O2 Delivery O2 Flow Rate FiO2 09/04/16 13:15 36.7 81 18 166/91 99 Room Air Notes Mental Status: alert / awake / arousable, participated in evaluation Pt Amnestic to Procedure: Yes Nausea / Vomiting: adequately controlled Pain: adequately controlled Airway Patency, RR, SpO2: stable & adequate BP & HR: stable & adequate Hydration State: stable & adequate Anesthetic Complications: no major complications apparent
[2016-09-04 18:00] VITALS: BP 158/89; PULSE 73; TEMP 36.7; O2SAT 100
[2016-09-04 18:30] VITALS: BP 153/94; PULSE 80; TEMP 36.7; O2SAT 100
--- NOTE | 2016-09-04 19:42 | OPERATIVE REPORT ---
DATE OF OPERATION: 09/04/2016 PREOPERATIVE DIAGNOSIS: End-stage renal disease. POSTOPERATIVE DIAGNOSIS: Same. PROCEDURE: Left antecubital cephalic vein AV fistula creation. SURGEON: Dr. Claudio. CUSTOMER SUPPORT SPECIALIST: Shoshana Toledo PA-C. ANESTHETIC: MAC. PROCEDURE INDICATIONS: The patient is a 30-year-old female in need of an access for permanent dialysis. She has had 2 accesses already performed in the left arm in the past. She was found to have a cephalic vein which was patent in the left upper arm. Antecubital cephalic vein AV fistula was recommended. She understood the risks, options and benefits and agreed to have this procedure. OPERATION AND FINDINGS: The patient was taken to the operating room and placed in supine position. After the left arm was prepped and draped in a sterile manner, local anesthetic was administered. A transverse incision was made just below the antecubital crease. The cephalic vein was identified as well as the median antecubital. Median antecubital was sclerotic and occluded with cephalic vein patent. The cephalic vein was transected at that level. The Christina catheter passed very easily. It was gently dilated on the way back. There was backbleeding noted. The brachial artery was then identified at the upper part of the incision. The brachial artery was clamped proximally and distally. Longitudinal arteriotomy was then made. The cephalic vein was then beveled and end-to-side anastomosis was accomplished in the brachial artery cephalic vein using 1-inch 7-0 Prolene suture in the usual vascular fashion. Prior to completing the closure, backbleeding and forward bleeding was allowed to occur and the final few sutures were placed and securely tied. Clamps were then removed. There was a palpable thrill in the fistula at the end of the procedure and the vein dilated nicely. Doppler signals could be heard all the way up to the anterior axillary line. The wound was inspected. Adequate hemostasis was noted. The wound was then closed in the usual running fashion with running 3-0 Vicryl subcutaneous layer and running subcuticular 4-0 Vicryl suture and Dermabond for a dressing. The patient left the operating room in satisfactory condition and tolerated the procedure well. Shoshana Toledo assisted due to lack of resident availability. I attest to the content of the Intraoperative Record and any orders documented therein. Any exceptio ns are noted below.
== END | disposition home or self-care (01) ==
LOC: C.ACU 12:55
PROVIDERS: ATTEND Surgery Vascular Surgery
DX: N18.6 End stage renal disease (principal); E11.22 Type 2 diabetes mellitus with diabetic chronic kidney disease; Z94.0 Kidney transplant status; Z87.891 Personal history of nicotine dependence

== ENCOUNTER 2016-10-03 10:11 | Emergency (ER) | payer OTHER ==
[~2016-10-03] VITALS: Ht 167.6 cm; Wt 86.0 kg
[~2016-10-03 10:11] MED LIST changes: -ACET-1256 PO; -AMLO-114 PO; -AMOX875T PO; -APR25 PO; -APR50 PO; -ATROPINE SULFATE 0.1 MG/ML 5ML SYR IV PRN; -ATV1 PO; -BENZ100C7 PO; -BENZ100C84 PO; -CALC0.5C17 PO; -CALC500C3 PO; -CALC667C4 PO; -CARV3.122 PO; -CLC6 PO; -CLINDAMYCIN 600 MG/54 ML D5W IV SCH; -CMD/25 PO; -CMD3 PO; -COLC1TAB25 PO; -CRG125 PO; -CRG25 PO; -CRG3125 PO; -CRG625 PO; -D5W AND 1/2NSS 1,000 ML IV ONE; -DOCU-94 PO; -DOXY100C76 PO; -DOXY100T PO; -ESCI1TAB10 PO; -EpHEDrine SULFATE INJ 50 MG/ML AMP IV PRN; -FAMO40TA6 PO; -FENTANYL CITRATE INJ 50 MCG/1 ML 2 ML VIAL IV PRN; -FENTANYL CITRATE INJ 50 MCG/1 ML 2 ML VIAL ONE; -FLUT0.15 NAE; -HEPARIN SOD (PORCINE) 1000 UNIT/ML 10 ML VIAL FLUSH ONE; -HYDR-5688 PO; -HYDROmorphone INJ 1 MG/ML SYR IV PRN; -LABETALOL HCL IV 5 MG/ML 20ML IV PRN; -LISI-725 PO; -LISI20TA3 PO; -LISI40TA PO; -LSN40 PO; -LXP/20 PO; -MEPERIDINE HCL 25 MG/ML CARP IV PRN; -MIDAZOLAM HCL 1 MG/ML 2ML VIAL ONE; -MIRT30TA3 PO; -MIX: 0.5% BUPIVACAINE W/EPI 1:200,000+1%LIDO 50:50 INJ ONE; -NRV/10 PO; -NRV/5 PO; -NURSING VERBAL MED ORDER ONE; -ONDA4TAB10 SL; -ONDANSETRON INJ 2 MG/ML 2 ML VIAL IV PRN; -OXYC1TAB3 PO; -PRED10TA; -PROPOFOL IV EMULSION 10 MG/ML 20 ML VIAL IV ONE; -SODIUM CHLORIDE 0.9% 1000ML 1,000 ML IV SCH; -SULF800T23 PO; -TOBR0.3S4 OPL; -TRAM-10 PO; -VNTHFA/IN INH; -ZFRODT4HP PO; -ativan PO
[2016-10-03 10:16] VITALS: TEMP 37.4; Ht 167.6 cm; Wt 86.0 kg
[2016-10-03] MEDS ORDERED: ACETAMINOPHEN 500 MG TAB PO STA (10:30)
[2016-10-03 10:43] VITALS: O2SAT 95
--- NOTE | 2016-10-03 10:50 | DIAGNOSTIC IMAGING REPORT ---
SINGLE VIEW CHEST CLINICAL HISTORY: Atypical chest pain. FINDINGS: An AP, portable, upright chest radiograph is compared to study dated 08/24/2016. The examination is mildly degraded by portable technique and patient rotation. A left subclavian central venous catheter is unchanged in position. The cardiac silhouette is top normal for projection. The pulmonary vasculature is noncongested. The lungs and pleural spaces are clear. No pneumothorax is seen. The bony thorax is grossly intact. IMPRESSION: No acute cardiopulmonary abnormality. Electronically signed by: North Quintero M.D. 10/03/2016 10:48 AM Dictated Date/Time: 10/03/2016 10:48 AM
[2016-10-03 10:53] LABS: EOS % 4.8 %; HEMATOCRIT 21.2 % (37-47); LYMPH ABS # 0.31 K/uL (1.2-3.4); MEAN CELL VOLUME 92.6 fL (80-100); MEAN CORPUSCULAR HGB CONC 33.5 g/dl (32-36); MEAN PLATELET VOLUME 9.8 fL (7.4-10.4); MONO % 6.8 %; NEUT % 73.4 %; PLATELET COUNT 122 K/uL (130-400); RED BLOOD COUNT 2.29 M/uL (4.2-5.4); WHITE BLOOD COUNT 2.07 K/uL (4.8-10.8)
[2016-10-03 11:17] LABS: COMPLETE YES; OVALOCYTES 1+
[2016-10-03 11:25] LABS: ALKALINE PHOSPHATASE 98 U/L (45-117); ALT/SGPT 34 U/L (12-78); AST/SGOT 17 U/L (15-37); BLOOD UREA NITROGEN 58 mg/dl (7-18); BUN/CREATININE RATIO 6.1 (10-20); CALCIUM 7.4 mg/dl (8.5-10.1); CARBON DIOXIDE 19 mmol/L (21-32); CHLORIDE 104 mmol/L (98-107); CKMB/CK RATIO 2.3 (0-3.0); GLUCOSE 82 mg/dl (70-99); POTASSIUM 4.9 mmol/L (3.5-5.1); SODIUM 138 mmol/L (136-145)
[2016-10-03] MEDS ORDERED: HYDROmorphone INJ 0.5 MG/0.5 ML SYR IV STA (12:49)
[2016-10-03 13:30] VITALS: BP 189/100; PULSE 93; O2SAT 94
--- NOTE | 2016-10-04 18:11 | EMERGENCY ROOM VISIT NOTE ---
History Report prepared by Katia: Juan M Pelletier Under the Supervision of: Dr. Theo Irizarry M.D. First contact with patient: 10:13 Stated Complaint: CHEST PAIN History of Present Illness The patient is a 30 year old female who presents to the Emergency Room with complaints of persistent chest pain since last night. The patient also complains of a non-productive cough that started yesterday morning. The pain is worse when she coughs. The patient's temperature was 100.7 en route to the ED today. The patient had Tylenol last night but did not have anything today. The patient receives dialysis through a catheter every Saturday, Saturday, and Saturday. She also has a left dialysis fistula. She is due for dialysis at 1300 today. She had a catheter inserted. The patient is hypertensive at baseline. Patient denies LOC, headache, fevers, chills, diaphoresis, visual changes, neck pain, breathing difficulties, nausea, vomiting, abdominal pain, back pain, melena, hematochezia, urinary symptoms, numbness, weakness, lymphadenopathy, leg swelling, rash, or other complaints. Source of History: patient Onset: last night Position: chest Timing: other (persistent) Modifying Factors (Worsening): other (coughing) Associated Symptoms: + cough Review of Systems See HPI for pertinent positives and negatives. A total of ten systems were reviewed and were otherwise negative. Past Medical & Surgical Medical Problems: (1) DM2 (diabetes mellitus, type 2) (2) Focal segmental glomerulosclerosis (3) HTN (hypertension) (4) Hyperkalemia (5) Immunocompromised (6) Kidney disease (7) Migraine (8) Renal failure Surgical Problems: (1) H/O knee surgery (2) H/O tubal ligation (3) H/O: (4) Kidney transplant status, living related donor Social History Problems: (1) Kidney transplanted Family History Heart disease Hypertension Social History Smoking Status: Current Every Day Smoker Alcohol Use: none Drug Use: none Marital Status: in relationship Housing Status: lives with family, lives with significant other Occupation Status: disabled Current/Historical Medications Scheduled Calcium Acetate (Phoslo 667 Mg), 1,334 MG PO TIDM Calcium Carbonate (Tums), 3 TAB PO HS Escitalopram (Lexapro), 20 MG PO QAM Famotidine (Pepcid), 40 MG PO QAM Lisinopril (Lisinopril), 20 MG PO QAM Mirtazapine (Remeron), 30 MG PO HS Mycophenolate Mofetil (Mycophenolate Mofetil), 250 MG PO BID Trazodone Hcl (Trazodone), 50 MG PO HS Scheduled PRN Albuterol Hfa (Ventolin Hfa), 2 PUFFS INH QID PRN for RN Benzonatate (Tessalon Perles), 100 MG PO TID PRN for Cough Allergies Coded Allergies: Cefaclor (Verified Allergy, Unknown, Rash, 10/03/16) Reported by PT. Physical Exam Vital Signs Date Time Temp Pulse Resp B/P Pulse Ox O2 Delivery O2 Flow Rate FiO2 10/03/16 13:30 93 16 189/100 94 Room Air 10/03/16 13:04 97 10/03/16 11:59 94 16 146/104 95 Room Air 10/03/16 10:43 95 Room Air 10/03/16 10:38 96 10/03/16 10:16 37.4 90 18 177/102 95 Room Air 10/03/16 10:16 95 Room Air Physical Exam GENERAL: Awake, alert, well-appearing, in no distress HENT: Normocephalic, atraumatic. Oropharynx unremarkable. EYES: Normal conjunctiva. Sclera non-icteric. NECK: Supple. No nuchal rigidity. FROM. No JVD. RESPIRATORY: Clear to auscultation. CARDIAC: Regular rate, normal rhythm. Extremities warm and well perfused. Pulses equal. ABDOMEN: Soft, non-distended. No tenderness to palpation. No rebound or guarding. No masses. RECTAL: Deferred. MUSCULOSKELETAL: Some left upper chest tenderness but otherwise dialysis catheter appears normal. The back is symmetrical on inspection without obvious abnormality. There is no CVA tenderness to palpation. No joint edema. LOWER EXTREMITIES: Calves are equal size bilaterally and non-tender. No edema. No discoloration. NEURO: Normal sensorium. No sensory or motor deficits noted. SKIN: No rash or jaundice noted. Medical Decision & Procedures ER Provider Diagnostic Interpretation: X-ray: Per my interpretation, radiologist review. SINGLE VIEW CHEST CLINICAL HISTORY: Atypical chest pain. FINDINGS: An AP, portable, upright chest radiograph is compared to study dated 08/24/2016. The examination is mildly degraded by portable technique and patient rotation. A left subclavian central venous catheter is unchanged in position. The cardiac silhouette is top normal for projection. The pulmonary vasculature is noncongested. The lungs and pleural spaces are clear. No pneumothorax is seen. The bony thorax is grossly intact. IMPRESSION: No acute cardiopulmonary abnormality. Electronically signed by: North Quintero M.D. 10/03/2016 10:48 AM Dictated Date/Time: 10/03/2016 10:48 AM Laboratory Results 10/03/16 10:30 Red Blood Count 2.29, Mean Corpuscular Volume 92.6, Mean Corpuscular Hemoglobin 31.0, Mean Corpuscular Hemoglobin Concent 33.5, Mean Platelet Volume 9.8, Neutrophils (%) (Auto) 73.4, Lymphocytes (%) (Auto) 15.0, Monocytes (%) (Auto) 6.8, Eosinophils (%) (Auto) 4.8, Basophils (%) (Auto) 0.0, Neutrophils # (Auto) 1.52, Lymphocytes # (Auto) 0.31, Monocytes # (Auto) 0.14, Eosinophils # (Auto) 0.10, Basophils # (Auto) 0.00 10/03/16 10:30 Test 10/03/16 10:30 10/03/16 10:55 White Blood Count 2.07 K/uL (4.8-10.8) Red Blood Count 2.29 M/uL (4.2-5.4) Hemoglobin 7.1 g/dL (12.0-16.0) Hematocrit 21.2 % (37-47) Mean Corpuscular Volume 92.6 fL (80-100) Mean Corpuscular Hemoglobin 31.0 pg (25-34) Mean Corpuscular Hemoglobin Concent 33.5 g/dl (32-36) Platelet Count 122 K/uL (130-400) Mean Platelet Volume 9.8 fL (7.4-10.4) Neutrophils (%) (Auto) 73.4 % Lymphocytes (%) (Auto) 15.0 % Monocytes (%) (Auto) 6.8 % Eosinophils (%) (Auto) 4.8 % Basophils (%) (Auto) 0.0 % Neutrophils # (Auto) 1.52 K/uL (1.4-6.5) Lymphocytes # (Auto) 0.31 K/uL (1.2-3.4) Monocytes # (Auto) 0.14 K/uL (0.11-0.59) Eosinophils # (Auto) 0.10 K/uL (0-0.5) Basophils # (Auto) 0.00 K/uL (0-0.2) RDW Standard Deviation 61.5 fL (36.4-46.3) RDW Coefficient of Variation 18.2 % (11.5-14.5) Immature Granulocyte % (Auto) 0.0 % Immature Granulocyte # (Auto) 0.00 K/uL (0.00-0.02) Ovalocytes 1+ Prothrombin Time 11.0 SECONDS (9.0-12.0) Prothromb Time International Ratio 1.0 (0.9-1.1) Activated Partial Thromboplast Time 25.7 SECONDS (21.0-31.0) Partial Thromboplastin Ratio 1.0 Anion Gap 15.0 mmol/L (3-11) Est Creatinine Clear Calc Drug Dose 9.7 ml/min Estimated GFR () 5.8 Estimated GFR (Non- 5.0 BUN/Creatinine Ratio 6.1 (10-20) Calcium Level 7.4 mg/dl (8.5-10.1) Total Bilirubin 0.3 mg/dl (0.2-1) Direct Bilirubin < 0.1 mg/dl (0-0.2) Aspartate Amino Transf (AST/SGOT) 17 U/L (15-37) Alanine Aminotransferase (ALT/SGPT) 34 U/L (12-78) Alkaline Phosphatase 98 U/L (45-117) Total Creatine Kinase 31 U/L (26-192) Creatine Kinase MB 0.7 ng/ml (0.5-3.6) Creatine Kinase MB Ratio 2.3 (0-3.0) Troponin I < 0.015 ng/ml (0-0.045) Total Protein 6.8 gm/dl (6.4-8.2) Albumin 3.1 gm/dl (3.4-5.0) Lipase 210 U/L (73-393) Influenza Type A Antigen Neg for Influ A (NEG) Influenza Type B Antigen Neg for Influ B (NEG) Laboratory results reviewed by me Medications Administered Medications (Trade) Dose Ordered Sig/Sachin Route Start Time Stop Time Status Last Admin Dose Admin Acetaminophen (Tylenol Tab) 1,000 mg NOW STAT PO 10/03/16 10:30 10/03/16 10:32 DC 10/03/16 11:03 1,000 MG Hydromorphone HCl (Dilaudid Inj) 0.5 mg NOW STAT IV 10/03/16 12:49 10/03/16 12:50 DC 10/03/16 13:06 0.5 MG ECG Indication: chest pain Rate (beats per minute): 94 Rhythm: normal sinus Findings: no acute ischemic change, prolonged QT, no ectopy ED Course 1028: The patient was evaluated in room A11a. A complete history and physical exam was performed. 1030: Tylenol 1000 mg PO. 1247: The patient requested something more for pain. 1249: Dilaudid 0.5 mg IV. 1256: Spoke with Dr. Jo, Project Landscape Architect. He said the patient should stop taking CellCept and go to her dialysis appointment. He will follow up with her. 1302: Updated the patient. 1330: Reassessed the patient. Discussed the findings with her. She verbalized understanding and agreement of the treatment plan. The patient is ready for discharge. Medical Decision Triage Nursing notes reviewed. The patient's presentation and history were concerning for persistent chest pain since yesterday and a history of dialysis. Etiologies such as cardiac ischemia, aortic dissection, pulmonary embolism, pneumonia, pneumothorax, musculoskeletal, infections, gastrointestinal, as well as others were entertained. The patient was evaluated. Clinically she was doing well. She was treated with a dose of Tylenol. The patient has an unremarkable chest x-ray. CBC revealed pancytopenia. Chemical panel, LFTs, and lipase were unremarkable except for elevated creatinine consistent with her end-stage renal disease. Cardiac markers were negative. Blood testing was negative. The patient was doing well. I did consult with her oncologist Dr. Jo. Due to the pancytopenia he recommended holding the patient's CellCept and continue dialysis as scheduled for today. They will monitor her H&H closely. The patient would like to hold off on any transfusions at this time. She does not exhibit symptoms of symptomatic anemia and has been this low many times in past. If she worsens in any way she will come back to the emergency department for reevaluation. I suspect a musculoskeletal source or possible pleurisy. By the evaluation outlined above other emergent etiologies such as those listed in the differential, as well as others, were deemed relatively unlikely. The patient was informed about the findings as listed above. All questions were answered and she was pleased with the treatment. Return instructions were outlined and the patient was discharged in stable condition. The patient was referred to dialysis and her director banking for follow-up for a recheck of the current condition. The chart was completed utilizing [employer] Speech voice recognition software. Grammatical errors, random word insertions, pronoun errors, and incomplete sentences are an occasional consequence of this system due to software limitations, ambient noise, and hardware issues. Any formal questions or concerns about the content, text, or information contained within the body of this dictation should be directly addressed to the physician for clarification. Consults Time Called: [id number] Consulting Physician: Spoke with Dr. Jo, Project Landscape Architect. Returned Call: [phone]: Spoke with Dr. Jo, Project Landscape Architect. He said the patient should stop taking CellCept and go to her dialysis appointment. He will follow up with her. Impression Primary Impression: Left sided chest pain Additional Impressions: Cough Anemia Scribe Attestation The scribe's documentation has been prepared under my direction and personally reviewed by me in its entirety. I confirm that the note above accurately reflects all work, treatment, procedures, and medical decision making performed by me. Departure Information Dispostion Home / Self-Care Referrals Yohana Jo DO (PCP) Forms HOME CARE DOCUMENTATION FORM, IMPORTANT VISIT INFORMATION, Work Instructions Additional Instructions CHEST PAIN INSTRUCTIONS: Stop the CellCept Warm compresses for 20 minutes at a time four times daily for 2-3 days. Acetaminophen(Tylenol) may be used for fever or pain. Use 1000mg every six hours as needed. Avoid using more than 4000mg in a 24 hour period. Rest and drink plenty of fluids as tolerated. Continue current medications. Avoid strenuous activities and anything that worsens your pain. Resume normal activities once your symptoms resolve. Return to the ER immediately for worsening or persistent chest pain, abdominal pain, vomiting, fevers, chest pains, difficulty breathing, worsening of your condition, or as needed. Follow up with your primary physician in 2-3 days for a recheck of your current condition. Proceed directly to dialysis. Further direction regarding your blood counts will be done by Dr. Jo Problem Qualifiers
[2016-11-21] MEDS ORDERED: CLC6 PO (16:28)
[2016-11-21] MEDS ORDERED: CRG3125 PO (16:28)
[2016-12-16] MEDS ORDERED: FAMO40TA6 PO (12:28)
[2016-12-16] MEDS ORDERED: CALC500C3 PO (12:29)
[2016-12-16] MEDS ORDERED: CALC667C4 PO (19:46)
[2017-01-25] MEDS ORDERED: CRG625 PO (11:09)
[2017-02-06] MEDS ORDERED: LISI40TA PO (07:33)
[2017-02-12] MEDS ORDERED: AMOX875T PO (12:45)
[2017-02-14] MEDS ORDERED: DOXY100C76 PO (15:33)
[2017-02-21] MEDS ORDERED: OXYC-57 PO (15:28)
[2017-02-28] MEDS ORDERED: AMLO-114 PO (08:43)
[2017-03-06] MEDS ORDERED: CARV3.122 PO (10:28)
[2017-03-08] MEDS ORDERED: ZFRODT4HP PO (15:53)
[2017-03-20] MEDS ORDERED: DOXY100T PO (14:35)
[2017-03-20] MEDS ORDERED: TOBR0.3S4 OPL (14:35)
[2017-04-24] MEDS ORDERED: CMD/25 PO (12:00)
[2017-04-26] MEDS ORDERED: CMD3 PO (16:37)
[2017-04-26] MEDS ORDERED: LISI20TA3 PO (16:37)
[2017-05-15] MEDS ORDERED: VNTHFA/IN INH (12:28)
[2017-05-15] MEDS ORDERED: LISI-725 PO (13:43)
[2017-05-15] MEDS ORDERED: CALC500C3 PO (13:50)
[2017-05-15] MEDS ORDERED: CRG125 PO (15:17)
[2017-05-15] MEDS ORDERED: NRV/5 PO (15:17)
[2017-05-15] MEDS ORDERED: BENZ100C7 PO (15:22)
[2017-05-15] MEDS ORDERED: FLUT0.15 NAE (15:33)
[2017-05-15] MEDS ORDERED: CALC0.5C17 PO (18:14)
[2017-05-15] MEDS ORDERED: MIRT30TA3 PO (19:24)
[2017-05-15] MEDS ORDERED: TRAZ50TA35 PO (19:56)
[2017-05-15] MEDS ORDERED: CALC667C4 PO ×2 (19:56→21:12)
[2017-05-15] MEDS ORDERED: LXP/20 PO (21:08)
[2017-05-15] MEDS ORDERED: FAMO40TA6 PO (23:12)
[2017-05-17] MEDS ORDERED: CRG25 PO (14:53)
[2017-05-21] MEDS ORDERED: APR25 PO (00:24)
[2017-05-21] MEDS ORDERED: APR50 PO (15:28)
[2017-05-21] MEDS ORDERED: ATV1 PO (15:28)
[2017-05-21] MEDS ORDERED: ativan PO (16:06)
== END 2016-10-03 13:45 | disposition home or self-care (01) ==
LOC: EDBD 10:11 → C.EDA 10:12
DX: R07.9 Chest pain, unspecified (principal); R05 Cough; D64.9 Anemia, unspecified; N19 Unspecified kidney failure; E11.9 Type 2 diabetes mellitus without complications; I10 Essential (primary) hypertension; G43.909 Migraine, unspecified, not intractable, without status migrainosus; D89.9 Disorder involving the immune mechanism, unspecified; Z94.0 Kidney transplant status; Z99.2 Dependence on renal dialysis; Z79.899 Other long term (current) drug therapy; F17.210 Nicotine dependence, cigarettes, uncomplicated

== ENCOUNTER 2016-11-18 18:26 | Inpatient (IN) | payer OTHER ==
[~2016-11-18] VITALS: Ht 167.6 cm; Wt 85.5 kg
[~2016-11-18 18:26] MED LIST changes: -DXY100 PO; -OXYC-57 PO
[2016-11-18] MEDS ORDERED: LABETALOL HCL IV 5 MG/ML 20ML IV STA (18:50)
[2016-11-18 19:13] LABS: HEMATOCRIT 25.8 % (37-47); MEAN CELL VOLUME 94.2 fL (80-100); MEAN CORPUSCULAR HGB CONC 32.9 g/dl (32-36); PLATELET COUNT 131 K/uL (130-400); RED BLOOD COUNT 2.74 M/uL (4.2-5.4); WHITE BLOOD COUNT 5.42 K/uL (4.8-10.8)
[2016-11-18] MEDS ORDERED: NITROGLYCERIN OINT 2% 1GM PACKET EXT STA (19:25)
--- NOTE | 2016-11-18 19:27 | EMERGENCY ROOM VISIT NOTE ---
History Report prepared by Katia: Simi Card Under the Supervision of: Dr. Asiya Sun M.D. First contact with patient: 18:39 Chief Complaint: CHEST PAIN Stated Complaint: CHEST PAINS History of Present Illness The patient is a 31 year old female who presents to the Emergency Room with complaints of worsening bilateral chest pain that started yesterday morning. The pain is relieved when she lies flat, but any other changes in position cause the pain. The pain is also worse with breathing and radiates into her neck. The patient states she woke up from sleeping when the pain started. She denies fevers and lower extremity edema. She was seen in the ED for similar symptoms last month, but she states that her pain today is different because it radiates into her neck. The patient states that she does not regularly experience chest pain, but she states that she intermittently experiences chest pain after dialysis. She states that she has a history of a kidney transplant and diabetes. She is not being treated for her diabetes currently and her A1C 4 days ago was 4.0. The patient states that her diabetes has been under control since she went into kidney failure again. The patient receives dialysis treatments on Saturday, Saturday, and Saturday. She is due for dialysis tomorrow. She states that she still makes urine. The patient is on lisinopril for hypertension, but she takes it at 2200 instead of the morning because of how it interacts with her dialysis treatments. She denies any history of blood clots and states that her D-dimer always comes back positive. She states that she has never had a CT scan because she is unable to have the dye due to her kidney failure. The patient denies any chance of and states that she had a tubal ligation. Source of History: patient Onset: yesterday morning Position: chest (bilateral) Timing: worsening Modifying Factors (Worsening): breathing, other (changes in position) Modifying Factors (Relieving): other (lying flat) Associated Symptoms: + neck pain, No fevers Note: no lower extremity edema Review of Systems See HPI for pertinent positives & negatives. A total of 10 systems reviewed and were otherwise negative. Past Medical & Surgical Medical Problems: (1) CKD (chronic kidney disease) stage V requiring chronic dialysis (2) DM2 (diabetes mellitus, type 2) (3) Focal segmental glomerulosclerosis (4) HTN (hypertension) (5) Hyperkalemia (6) Immunocompromised (7) Kidney disease (8) Migraine (9) Renal failure Surgical Problems: (1) H/O knee surgery (2) H/O tubal ligation (3) H/O: (4) Kidney transplant status, living related donor Social History Problems: (1) Kidney transplanted Family History Heart disease Hypertension Social History Smoking Status: Current Every Day Smoker Alcohol Use: none Drug Use: none Marital Status: in relationship Housing Status: lives with family, lives with significant other Occupation Status: disabled Current/Historical Medications Scheduled Calcium Acetate (Phoslo 667 Mg), 1,334 MG PO WITH SNACKS Calcium Acetate (Phoslo 667 Mg), 2,001 MG PO WM Calcium Carbonate (Tums), 1,500 MG PO HS Escitalopram Oxalate (Lexapro), 20 MG PO QAM Famotidine (Pepcid), 40 MG PO QAM Lisinopril (Zestril), 20 MG PO HS Mirtazapine (Remeron), 30 MG PO HS Trazodone Hcl (Trazodone), 50 MG PO HS Scheduled PRN Albuterol Hfa (Ventolin Hfa), 2 PUFFS INH QID PRN for Allergy Symptoms Allergies Coded Allergies: Cefaclor (Verified Allergy, Unknown, Rash, 10/03/16) Reported by PT. Physical Exam Vital Signs Date Time Temp Pulse Resp B/P Pulse Ox O2 Delivery O2 Flow Rate FiO2 11/18/16 22:52 85 19 177/109 94 11/18/16 22:05 89 21 95 Room Air 11/18/16 22:00 168/110 11/18/16 21:35 90 22 96 Room Air 11/18/16 21:30 173/110 11/18/16 21:05 84 20 97 Room Air 11/18/16 21:00 160/109 11/18/16 21:00 96 Nasal Cannula 2.0 11/18/16 20:53 85 19 169/117 97 Nasal Cannula 2.0 11/18/16 20:53 169/117 11/18/16 20:53 97 Nasal Cannula 2.0 11/18/16 20:35 84 26 93 Nasal Cannula 2.0 11/18/16 20:32 180/111 11/18/16 20:00 168/109 11/18/16 19:52 25 91 Nasal Cannula 3.0 11/18/16 19:52 91 Nasal Cannula 3.0 11/18/16 19:48 85 22 162/106 89 Nasal Cannula 2.0 11/18/16 19:48 162/106 11/18/16 19:39 166/108 11/18/16 19:37 164/112 11/18/16 19:35 88 25 162/119 92 11/18/16 19:32 93 Nasal Cannula 2.0 11/18/16 19:32 15 164/120 93 Nasal Cannula 2.0 11/18/16 19:30 174/117 89 Room Air 11/18/16 19:27 174/122 11/18/16 19:26 94 27 91 Room Air 11/18/16 19:25 174/123 11/18/16 19:18 92 11/18/16 19:06 178/113 11/18/16 19:06 95 Room Air 11/18/16 18:28 36.9 99 18 185/125 99 Room Air Physical Exam Vital signs reviewed. General: Chronically ill-appearing female, in no significant distress. HEENT: No scleral icterus, PERRLA, neck supple. Atraumatic. Cardiovascular: Regular rate and rhythm, no extra sounds. Pulmonary: Clear to auscultation bilaterally, normal work of breathing, pain with deep breathing. Abdomen: Soft, nontender, nondistended, positive bowel sounds. Musculoskeletal: Ecchymosis with a palpable fistula to left upper extremity, atraumatic, no peripheral edema. Neurologic: Patient awake alert and oriented x 3, Skin: Warm, dry, no rash Medical Decision & Procedures ER Provider Diagnostic Interpretation: Radiology results as stated below per my review and radiologist interpretation: CHEST 2 VIEWS ROUTINE IMPRESSION: 1. Interstitial thickening consistent with mild pulmonary edema. 2. Mild to moderate enlargement of the cardiac silhouette. Electronically signed by: Sebastian Mcclain M.D. 11/18/2016 9:08 PM Dictated Date/Time: 11/18/2016 9:06 PM BILATERAL LOWER EXTREMITY VENOUS DOPPLER IMPRESSION: No evidence of deep venous thrombus within the bilateral lower extremities. Electronically signed by: Sebastian Mcclain M.D. 11/18/2016 8:25 PM Dictated Date/Time: 11/18/2016 8:24 PM Laboratory Results 11/18/16 19:00 Red Blood Count 2.74, Mean Corpuscular Volume 94.2, Mean Corpuscular Hemoglobin 31.0, Mean Corpuscular Hemoglobin Concent 32.9, Mean Platelet Volume 9.0, Neutrophils (%) (Auto) 72.6, Lymphocytes (%) (Auto) 18.3, Monocytes (%) (Auto) 4.6, Eosinophils (%) (Auto) 4.1, Basophils (%) (Auto) 0.2, Neutrophils # (Auto) 3.94, Lymphocytes # (Auto) 0.99, Monocytes # (Auto) 0.25, Eosinophils # (Auto) 0.22, Basophils # (Auto) 0.01 11/18/16 19:00 Test 11/18/16 19:00 11/18/16 19:08 White Blood Count 5.42 K/uL (4.8-10.8) Red Blood Count 2.74 M/uL (4.2-5.4) Hemoglobin 8.5 g/dL (12.0-16.0) Hematocrit 25.8 % (37-47) Mean Corpuscular Volume 94.2 fL (80-100) Mean Corpuscular Hemoglobin 31.0 pg (25-34) Mean Corpuscular Hemoglobin Concent 32.9 g/dl (32-36) Platelet Count 131 K/uL (130-400) Mean Platelet Volume 9.0 fL (7.4-10.4) Neutrophils (%) (Auto) 72.6 % Lymphocytes (%) (Auto) 18.3 % Monocytes (%) (Auto) 4.6 % Eosinophils (%) (Auto) 4.1 % Basophils (%) (Auto) 0.2 % Neutrophils # (Auto) 3.94 K/uL (1.4-6.5) Lymphocytes # (Auto) 0.99 K/uL (1.2-3.4) Monocytes # (Auto) 0.25 K/uL (0.11-0.59) Eosinophils # (Auto) 0.22 K/uL (0-0.5) Basophils # (Auto) 0.01 K/uL (0-0.2) RDW Standard Deviation 53.0 fL (36.4-46.3) RDW Coefficient of Variation 15.5 % (11.5-14.5) Immature Granulocyte % (Auto) 0.2 % Immature Granulocyte # (Auto) 0.01 K/uL (0.00-0.02) Ovalocytes 1+ Prothrombin Time 11.2 SECONDS (9.0-12.0) Prothromb Time International Ratio 1.0 (0.9-1.1) Activated Partial Thromboplast Time 26.7 SECONDS (21.0-31.0) Partial Thromboplastin Ratio 1.0 Anion Gap 15.0 mmol/L (3-11) Est Creatinine Clear Calc Drug Dose 6.5 ml/min Estimated GFR () 3.6 Estimated GFR (Non- 3.1 BUN/Creatinine Ratio 5.5 (10-20) Calcium Level 7.1 mg/dl (8.5-10.1) Magnesium Level 2.8 mg/dl (1.8-2.4) Total Bilirubin 0.3 mg/dl (0.2-1) Direct Bilirubin 0.1 mg/dl (0-0.2) Aspartate Amino Transf (AST/SGOT) 18 U/L (15-37) Alanine Aminotransferase (ALT/SGPT) 35 U/L (12-78) Alkaline Phosphatase 69 U/L (45-117) Total Creatine Kinase 38 U/L (26-192) Creatine Kinase MB 0.9 ng/ml (0.5-3.6) Creatine Kinase MB Ratio 2.4 (0-3.0) Total Protein 6.8 gm/dl (6.4-8.2) Albumin 3.3 gm/dl (3.4-5.0) Bedside Troponin I 0.010 ng/ml (0-0.045) Laboratory results per my review. Medications Administered Medications (Trade) Dose Ordered Sig/Sachin Route Start Time Stop Time Status Last Admin Dose Admin Labetalol HCl (Normodyne IV) 10 mg NOW STAT IV 11/18/16 18:50 11/18/16 18:54 DC 11/18/16 19:26 10 MG Nitroglycerin (Nitroglycerin 2% Oint) 1 inch NOW STAT EXT 11/18/16 19:25 11/18/16 19:27 DC 11/18/16 19:49 1 INCH Morphine Sulfate (MoRPHine SULFATE INJ) 4 mg NOW STAT IV 11/18/16 20:45 11/18/16 20:47 DC 11/18/16 20:54 4 MG Morphine Sulfate (MoRPHine SULFATE INJ) 2 mg STK-MED ONCE .ROUTE 11/18/16 22:13 11/18/16 22:16 DC 11/18/16 22:22 2 MG Furosemide (Lasix Inj) 100 mg NOW STAT IV 11/18/16 22:34 11/18/16 22:35 DC 11/18/16 22:37 100 MG ECG Indication: chest pain Rate (beats per minute): 97 Rhythm: normal sinus Findings: no ectopy, other (T-wave flattening in the lateral leads) ED Course 1848: Past medical records reviewed. The patient was evaluated in room B8. A complete history and physical examination was performed. 1849: Ordered Labetalol HCl 10 mg IV 1924: Ordered Nitroglycerin 1 inch EXT 2043: The nurse informed me that the patient is requesting pain medication for her headache and chest pain. 2044: Ordered Morphine Sulfate 4 mg IV 2154: I reviewed the patient's case with Dr. Beti Sierra. He will evaluate the patient for further management. 2156: Upon reevaluation, the patient is resting comfortably. She informed me that she skipped dialysis on Saturday. I discussed laboratory and radiographic results with her. She verbalized agreement of the treatment plan. I spoke with Dr. Bang of the [facility] Hospitalist Service. The patient will be evaluated for further management and care. Medical Decision Differentials include acute coronary syndrome, pulmonary embolus, aortic dissection, musculoskeletal pain, pneumonia, pleural effusion, pneumothorax This patient was evaluated and appeared to be in no significant distress. IV access was obtained and laboratory work was drawn. The patient was placed on the engine monitor and found to be in a normal sinus rhythm. EKG reveals no evidence of acute ischemia or dysrhythmia. Chest x-ray reveals pulmonary vascular congestion and mild cardiomegaly. Dialysis catheter is in place. The patient has been having difficulty with her left upper extremity fistula. She is noted to be markedly hypertensive and was treated with 10 mg of IV labetalol and 1 inch of nitroglycerin paste. Ultrasound of bilateral lower extremities is negative for DVT. It is clear that the patient will require dialysis. She admits to missing dialysis this last Saturday due to childcare issues. I did speak with Dr. Bang of the hospitalist service will evaluate the patient for further management. She is aware of this plan and agrees. Consults Time Called: 2104 Consulting Physician: Dr. Beti Sierra Returned Call: 2154 I reviewed the patient's case with Dr. Beti Sierra. He will evaluate the patient for further management. Impression Primary Impression: Radiating chest pain Additional Impressions: Hemodialysis patient Congestive heart failure Chronic renal failure Scribe Attestation The scribe's documentation has been prepared under my direction and personally reviewed by me in its entirety. I confirm that the note above accurately reflects all work, treatment, procedures, and medical decision making performed by me. Departure Information Dispostion Being Evaluated By Hospitalist Referrals Adolph Aldridge M.D. (PCP) Patient Instructions My [facility] Problem Qualifiers Additional Impressions: Congestive heart failure Congestive heart failure type: unspecified congestive heart failure type Congestive heart failure chronicity: acute Qualified Codes: I50.9 - Heart failure, unspecified Chronic renal failure Chronic kidney disease stage: unspecified stage Qualified Codes: N18.9 - Chronic kidney disease, unspecified
[2016-11-18 19:30] LABS: PROTHROMBIN TIME (PATIENT) 11.2 SECONDS (9.0-12.0)
[2016-11-18 19:40] LABS: BASO % 0.2 %; BASO ABS # 0.01 K/uL (0-0.2); COMPLETE YES; EOS % 4.1 %; IG% 0.2 %; LYMPH % 18.3 %; LYMPH ABS # 0.99 K/uL (1.2-3.4); MONO % 4.6 %; NEUT % 72.6 %; OVALOCYTES 1+
[2016-11-18] MEDS ORDERED: NITROGLYCERIN OINT 2% 1GM PACKET ONE (19:44)
[2016-11-18 19:50] LABS: BUN/CREATININE RATIO 5.5 (10-20); CALCIUM 7.1 mg/dl (8.5-10.1); CKMB/CK RATIO 2.4 (0-3.0); MAGNESIUM 2.8 mg/dl (1.8-2.4); POTASSIUM 5.1 mmol/L (3.5-5.1)
[2016-11-18] MEDS ORDERED: LISI-725 PO (19:56)
[2016-11-18] MEDS ORDERED: ESCI1TAB10 PO (19:56)
--- NOTE | 2016-11-18 20:26 | DIAGNOSTIC IMAGING REPORT ---
BILATERAL LOWER EXTREMITY VENOUS DOPPLER CLINICAL HISTORY: Chest pain. Renal failure. COMPARISON STUDY: Bilateral lower extremity venous Doppler April 19, 2016. TECHNIQUE: Sonography of the deep venous system of the bilateral lower extremities was performed. Compression and augmentation were evaluated. FINDINGS: The bilateral common femoral, superficial femoral and popliteal veins were compressible. Augmentation was normal. Flow was shown within the deep calf vessels. IMPRESSION: No evidence of deep venous thrombus within the bilateral lower extremities. Electronically signed by: Sebastian Mcclain M.D. 11/18/2016 8:25 PM Dictated Date/Time: 11/18/2016 8:24 PM
[2016-11-18] MEDS ORDERED: MoRPHine SULFATE 4 MG/ML 1 ML CARP\\VIAL IV STA (20:45)
--- NOTE | 2016-11-18 21:10 | DIAGNOSTIC IMAGING REPORT ---
CHEST 2 VIEWS ROUTINE CLINICAL HISTORY: Chest pain. Shortness of breath. COMPARISON STUDY: Chest radiograph October 03, 2016. FINDINGS: A left internal jugular dual lumen catheter is in place. Mild to moderate cardiomegaly is noted. There is no pneumothorax or pleural effusion. Interstitial thickening suggests pulmonary edema. Cristobal B lines are noted. No consolidation is identified. IMPRESSION: 1. Interstitial thickening consistent with mild pulmonary edema. 2. Mild to moderate enlargement of the cardiac silhouette. Electronically signed by: Sebastian Mcclain M.D. 11/18/2016 9:08 PM Dictated Date/Time: 11/18/2016 9:06 PM
[2016-11-18] MEDS ORDERED: MoRPHine SULFATE 2 MG/ML CARP ONE (22:13)
[2016-11-18] MEDS ORDERED: ACETAMINOPHEN 325 MG TAB PO PRN (22:15)
[2016-11-18] MEDS ORDERED: NITROGLYCERIN 0.4 MG SL PER TAB CHARGE SL PRN (22:15)
[2016-11-18] MEDS ORDERED: FUROSEMIDE INJ 100 MG in SYRINGE 0 ML IV ONE (22:30)
[2016-11-18] MEDS ORDERED: LABETALOL HCL IV 5 MG/ML 20ML IV PRN (22:30)
--- NOTE | 2016-11-18 22:31 | History and Physical ---
History & Physical Date & Time of Service: Nov 18, 2016 at 22:31 . Chief Complaint: chest pressure, shortness of breath . Primary Care Physician: Adolph Aldridge M.D. . History of Present Illness Source: patient, clinic records, hospital records 31 YO female followed by Dr Aldridge for Family Medicine and Dr. Jo for Nephrology. 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 Currently on hemodialysis 3 times a week. Missed her hemodialysis treated 2 days prior to admission. Over past 24 hours has developed progressive dyspnea and midchest pressure. No palpitations. No edema. Mild pharyngitis a few days ago. No fever or cough. . Past Medical/Surgical History Chronic and Resolved Medical Problems: (1) CKD (chronic kidney disease) stage V requiring chronic dialysis Status: Chronic (2) DM2 (diabetes mellitus, type 2) Status: Chronic (3) Focal segmental glomerulosclerosis Status: Chronic (4) HTN (hypertension) Status: Chronic (5) Migraine Status: Chronic Surgical Problems: (1) H/O knee surgery Status: Chronic (2) H/O tubal ligation Status: Chronic (3) H/O: Status: Chronic (4) Kidney transplant status, living related donor Status: Chronic Social History Problems: (1) Kidney transplanted Status: Chronic . Family History FATHER Crohn's disease MOTHER Diabetes mellitus SISTER Hypertension Social History Smoking Status: Current Every Day Smoker Alcohol Use: occasionally Drug Use: none Marital Status: in relationship Housing status: lives with significant other Occupational Status: disabled Immunizations History of Influenza Vaccine: Yes History of Tetanus Vaccine?: Yes History of Pneumococcal: Yes History of Hepatitis B Vaccine: Unknown Multi-Drug Resistant Organisms History of MDRO: No Allergies Coded Allergies: Cefaclor (Verified Allergy, Unknown, Rash, 10/03/16) Reported by PT. Home Medications Scheduled Calcium Acetate (Phoslo 667 Mg), 1,334 MG PO WITH SNACKS Calcium Acetate (Phoslo 667 Mg), 2,001 MG PO WM Calcium Carbonate (Tums), 1,500 MG PO HS Escitalopram Oxalate (Lexapro), 20 MG PO QAM Famotidine (Pepcid), 40 MG PO QAM Lisinopril (Zestril), 20 MG PO HS Mirtazapine (Remeron), 30 MG PO HS Trazodone Hcl (Trazodone), 50 MG PO HS Scheduled PRN Albuterol Hfa (Ventolin Hfa), 2 PUFFS INH QID PRN for Allergy Symptoms Review of Systems Constitutional: No chills, No fever, No weight loss Eyes: No diplopia, No worsening of vision ENT: + nasal symptoms, + sore throat Respiratory: + dyspnea on exertion, + shortness of breath, No cough Cardiovascular: + chest pain, No edema, No palpitations Abdomen: + diarrhea, No GI bleeding, No nausea, No pain, No vomiting Musculoskeletal: No joint pain, No muscle pain Genitourinary - Female: No dysuria, No hematuria Endocrine: + excessive thirst, + fatigue, No excessive urination Hematologic / Lymphatic: + abnormal bleeding/bruising Integumentary: No new/changing skin lesions, No rash Physical Exam Vital Signs Date Time Temp Pulse Resp B/P Pulse Ox O2 Delivery O2 Flow Rate FiO2 11/18/16 22:05 89 21 95 Room Air 11/18/16 22:00 168/110 11/18/16 21:35 90 22 96 Room Air 11/18/16 21:30 173/110 11/18/16 21:05 84 20 97 Room Air 11/18/16 21:00 160/109 11/18/16 21:00 96 Nasal Cannula 2.0 11/18/16 20:53 85 19 169/117 97 Nasal Cannula 2.0 11/18/16 20:53 169/117 11/18/16 20:53 97 Nasal Cannula 2.0 11/18/16 20:35 84 26 93 Nasal Cannula 2.0 11/18/16 20:32 180/111 11/18/16 20:00 168/109 11/18/16 19:52 25 91 Nasal Cannula 3.0 11/18/16 19:52 91 Nasal Cannula 3.0 11/18/16 19:48 85 22 162/106 89 Nasal Cannula 2.0 11/18/16 19:48 162/106 11/18/16 19:39 166/108 11/18/16 19:37 164/112 11/18/16 19:35 88 25 162/119 92 11/18/16 19:32 93 Nasal Cannula 2.0 11/18/16 19:32 15 164/120 93 Nasal Cannula 2.0 11/18/16 19:30 174/117 89 Room Air 11/18/16 19:27 174/122 11/18/16 19:26 94 27 91 Room Air 11/18/16 19:25 174/123 11/18/16 19:18 92 11/18/16 19:06 178/113 11/18/16 19:06 95 Room Air 11/18/16 18:28 36.9 99 18 185/125 99 Room Air General Appearance: WD/WN, + mild distress Head: normocephalic, atraumatic Eyes: normal inspection, PERRL, EOMI, sclerae normal (conjunctivae pale) ENT: normal ENT inspection, TMs normal, pharynx normal Neck: supple, no adenopathy, thyroid normal, trachea midline, + JVD Respiratory/Chest: no respiratory distress, no accessory muscle use, + rales ( bibasilar) Cardiovascular: regular rate, rhythm, no edema, no murmur, + gallop/S4, + pertinent finding (+ JVD) Abdomen/GI: normal bowel sounds, non tender, soft, no organomegaly, no pulsatile mass Extremities/Musculoskelatal: normal inspection, no calf tenderness, normal capillary refill, no pedal edema, + pertinent finding (AV fistula LUE) Neurologic/Psych: insurance risk surveyor II-XII nml as tested, no motor/sensory deficits, alert, oriented x 3 Skin: normal color, warm/dry, no rash Lymphatic: no adenopathy left infraclavicular hemodialysis catheter . Diagnostics Laboratory Results Results Past 24 Hours Test 11/18/16 19:00 11/18/16 19:08 Range/Units White Blood Count 5.42 4.8-10.8 K/uL Red Blood Count 2.74 4.2-5.4 M/uL Hemoglobin 8.5 12.0-16.0 g/dL Hematocrit 25.8 37-47 % Mean Corpuscular Volume 94.2 80-100 fL Mean Corpuscular Hemoglobin 31.0 25-34 pg Mean Corpuscular Hemoglobin Concent 32.9 32-36 g/dl Platelet Count 131 130-400 K/uL Mean Platelet Volume 9.0 7.4-10.4 fL Neutrophils (%) (Auto) 72.6 % Lymphocytes (%) (Auto) 18.3 % Monocytes (%) (Auto) 4.6 % Eosinophils (%) (Auto) 4.1 % Basophils (%) (Auto) 0.2 % Neutrophils # (Auto) 3.94 1.4-6.5 K/uL Lymphocytes # (Auto) 0.99 1.2-3.4 K/uL Monocytes # (Auto) 0.25 0.11-0.59 K/uL Eosinophils # (Auto) 0.22 0-0.5 K/uL Basophils # (Auto) 0.01 0-0.2 K/uL RDW Standard Deviation 53.0 36.4-46.3 fL RDW Coefficient of Variation 15.5 11.5-14.5 % Immature Granulocyte % (Auto) 0.2 % Immature Granulocyte # (Auto) 0.01 0.00-0.02 K/uL Ovalocytes 1+ Prothrombin Time 11.2 9.0-12.0 SECONDS Prothromb Time International Ratio 1.0 0.9-1.1 Activated Partial Thromboplast Time 26.7 21.0-31.0 SECONDS Partial Thromboplastin Ratio 1.0 Sodium Level 139 136-145 mmol/L Potassium Level 5.1 3.5-5.1 mmol/L Chloride Level 104 98-107 mmol/L Carbon Dioxide Level 20 21-32 mmol/L Anion Gap 15.0 3-11 mmol/L Blood Urea Nitrogen 77 7-18 mg/dl Creatinine 14.00 0.60-1.20 mg/dl Est Creatinine Clear Calc Drug Dose 6.5 ml/min Estimated GFR () 3.6 Estimated GFR (Non- 3.1 BUN/Creatinine Ratio 5.5 10-20 Random Glucose 78 70-99 mg/dl Calcium Level 7.1 8.5-10.1 mg/dl Magnesium Level 2.8 1.8-2.4 mg/dl Total Bilirubin 0.3 0.2-1 mg/dl Direct Bilirubin 0.1 0-0.2 mg/dl Aspartate Amino Transf (AST/SGOT) 18 15-37 U/L Alanine Aminotransferase (ALT/SGPT) 35 12-78 U/L Alkaline Phosphatase 69 45-117 U/L Total Creatine Kinase 38 26-192 U/L Creatine Kinase MB 0.9 0.5-3.6 ng/ml Creatine Kinase MB Ratio 2.4 0-3.0 Total Protein 6.8 6.4-8.2 gm/dl Albumin 3.3 3.4-5.0 gm/dl Bedside Troponin I 0.010 0-0.045 ng/ml Diagnostic Radiology CHEST 2 VIEWS ROUTINE FINDINGS: A left internal jugular dual lumen catheter is in place. Mild to moderate cardiomegaly is noted. There is no pneumothorax or pleural effusion. Interstitial thickening suggests pulmonary edema. Cristobal B lines are noted. No consolidation is identified. IMPRESSION: 1. Interstitial thickening consistent with mild pulmonary edema. 2. Mild to moderate enlargement of the cardiac silhouette. Electronically signed by: Sebastian Mcclain M.D. 11/18/2016 9:08 PM BILATERAL LOWER EXTREMITY VENOUS DOPPLER CLINICAL HISTORY: Chest pain. Renal failure. COMPARISON STUDY: Bilateral lower extremity venous Doppler April 19, 2016. TECHNIQUE: Sonography of the deep venous system of the bilateral lower extremities was performed. Compression and augmentation were evaluated. FINDINGS: The bilateral common femoral, superficial femoral and popliteal veins were compressible. Augmentation was normal. Flow was shown within the deep calf vessels. IMPRESSION: No evidence of deep venous thrombus within the bilateral lower extremities. Electronically signed by: Sebastian Mcclain M.D. 11/18/2016 8:25 PM . EKG EKG performed at 18:32 reviewed and demonstrated SR at 97 / minute, biphasic T- waves aVL. . Impression Assessment and Plan DYSPNEA Secondary to pulmonary edema +/- hypertensive urgency. Try IV furosemide. Fluid management with hemodialysis. HYPERTENSIVE URGENCY Probably secondary to missed dialysis treatment and fluid overload. Topical nitrates applied in ED. IV labetalol PRN. Continue lisinopril. CKD V ON HEMODIALYSIS K 5.1. No need for emergent dialysis at this time. Consult Nephrology for HD management. Consult Vascular Surgery- patient due for removal of hemodialysis cath on 11/20. DM TYPE II Well-controlled. Hgb A1C 4.0 on 11/13/16. No longer needing insulin or other treatment. Follow. DEPRESSION Continue trazodone and escitalopram. VTE PROPHYLAXIS Moderate risk. SQ heparin. Ambulate. RESUSCITATION STATUS Full code. DISPOSITION Admit to Telemetry Unit. Expected discharge to home. Family Medicine follow-up with Dr. Aldridge. Nephrology follow-up with Dr. Jo. . VTE Prophylaxis VTE Risk Assessment Done? Y/N: Yes Risk Level: Moderate Given or contraindicated: Unfractionated heparin SQ
[2016-11-18] MEDS ORDERED: FUROSEMIDE 40 MG/4 ML VIAL IV STA (22:34)
[2016-11-18] MEDS ORDERED: MIRTAZAPINE TAB 15 MG TAB PO STA (22:48)
[2016-11-18] MEDS ORDERED: LISINOPRIL 20 MG TAB PO STA (22:48)
[2016-11-18] MEDS ORDERED: TRAZODONE HCL 50 MG TAB PO STA (22:49)
[2016-11-18 23:15] VITALS: BP 169/105; PULSE 88; TEMP 36.4; O2SAT 98; Ht 167.6 cm; Wt 85.5 kg
[2016-11-18] MEDS: MoRPHine SULFATE 2 MG/ML CARP IV PRN (23:54)
[2016-11-18 23:56] LABS: PREG INTERNAL NEGATIVE QC NEG CLEAR BACKGROUND; PREG INTERNAL POSITIVE QC POS CONTROL LINE
[2016-11-18 23:58] LABS: URINE APPEARANCE CLEAR (CLEAR); URINE BILIRUBIN NEG (NEG); URINE COLOR YELLOW; URINE EPITHELIAL CELL AUTO >30 /lpf (0-5); URINE NITRITE NEG (NEG); URINE PH 7.5 (4.5-7.5); URINE SPECIFIC GRAVITY 1.011 (1.000-1.030); UROBILINOGEN NEG (NEG); ZZUR CULT IF INDIC CLEAN CATCH YES
[2016-11-19] VITALS (16 sets, daily range): BP systolic 138–167; BP diastolic 81–105; PULSE 77–96; TEMP 36.4–37.2; O2SAT 91–96
[2016-11-19 00:06] LABS: MANUAL MICROSCOPIC REQUIRED? NO; REVIEW REQ? NO; SULFASALICYLIC ACID POS (NEG)
[2016-11-19] MEDS ORDERED: EPOETIN ALFA 10,000 UNITS/ML VIAL IV. SCH (07:00)
[2016-11-19] MEDS ORDERED: CALCIUM ACETATE 667MG GELCAP PO PRN (07:30)
[2016-11-19] MEDS: ESCITALOPRAM OXALATE 20 MG TAB PO SCH (08:43)
[2016-11-19] MEDS: FAMOTIDINE 20 MG TAB PO SCH (08:43)
[2016-11-19] MEDS: HEPARIN SOD 5000 UNIT/0.5 ML CARP SQ SCH ×2 (08:44→20:24)
[2016-11-19] MEDS: MoRPHine SULFATE 2 MG/ML CARP IV PRN ×3 (08:44→20:22)
[2016-11-19] MEDS: CALCIUM ACETATE 667MG GELCAP PO SCH ×3 (08:44→16:38)
--- NOTE | 2016-11-19 09:55 | Medical Consult ---
Consultation Note Date of Service Nov 19, 2016. Consultation Note Chief Complaint: End stage renal disease History of Present Illness The patient is a 31 year old female with hx of IDDM and renal failure and renal transplant, ESRD on HD through L AC AVF created in 09/11. Previously with BL wrist AVF that failed. Still with permcath in place, seen today to discuss removal. Denies GARNETT, fever, chills, chest pain, SOB, abd pain, N/V, rest pain, claudication, other complaints. Allergies Cefaclor (Verified Allergy, Unknown, Rash, 05/18/15) Reported by PT. Surgical / Medical History Hx Cardiac Surgery: No Hx Abdominal Surgery: No Hx Cancer Surgery: No Hx Thoracic Surgery: No Hx Orthopedic: Yes Hx Urinary Tract Surgery: No HX Other Surgery: Yes Past Medical/Surgical History: Diabetes, Kidney Disease Family History Heart disease Hypertension Social History Smoking Status: Former Smoker Hx Tobacco Use In Past Year?: No Hx Alcohol Use - Type & Amnt: Yes Hx Substance Use -Type & Amnt: No Review of Systems Constitutional: No chills, No fever, No malaise Skin: No change in color Eyes: No visual changes ENMT: No sore throat Respiratory: No BADILLO, No cough, No hemoptysis, No short of breath Cardiovascular: No chest pain, No edema, No intermittent claudication, No palpitations, No syncope Gastrointestinal: No abdominal pain, No nausea Genitourinary - Female: No dysuria Neurologic: No dizziness, No lethargy, No numbness, No tingling Physical Exam: Constitutional: General Apperance: well-nourished, well-developed, obese (morbidly) Level of Distress: NAD Ambulation: ambulating normally Psychiatric: Mental Status: active & alert, normal mood, normal affect Orientation: oriented except where noted, to time, to place, to person Memory: recent memory normal, remote memory normal Head: normocephalic, atraumatic Eyes: EOM: EOMI ENMT: normal ENT inspection, hearing grossly normal Neck: supple, trachea midline Lungs: Respiratory effort: no dyspnea Auscultation: breath sounds normal, no wheezing, no rales/crackles, no rhonchi Cardiovascular: Apical Impulse: not displaced Heart Auscultation: RRR, no murmurs, no rubs, no gallops Peripheral Pulses: Pulses: full and equal, in all extremities except if noted Bruits: none appreciated Carotid Pulse: normal on the left, normal on the right Brachial Pulses: normal on the left, normal on the right Radial Pulse: normal on the left, normal on the right, pertinent finding L AC AVF + thrill/bruit Femoral Pulse: normal on the left, normal on the right Posterior Tibialis Pulse: normal on the left, normal on the right Dorsalis Pedis Pulse: normal on the left, normal on the right Abdomen: Bowel Sounds: normal Inspection & Palpation: soft, non-distended, no tenderness, guarding & rebound Musculoskeletal: normal strength (5/5 throughout), normal tone Extremities: Upper Right: no cyanosis, no edema, no varicosities Upper Left: no cyanosis, no edema, no varicosities Lower Right: no cyanosis, no edema, no varicosities Lower Left: no cyanosis, no edema, no varicosities Neurologic: Cranial Nerves: grossly intact Sensation: grossly intact ASSESSMENT and PLAN: Imp: End stage renal disease, on HD Functioning L arm AVF Plan: Pt scheduled for permcath removal in OR tomorrow. I have discussed the risks options and benefits of the procedure with the patient. The patient understands the risks options and benefits and agrees to the procedure.
--- NOTE | 2016-11-19 12:50 | NEPHROLOGY CONSULTATION ---
DATE OF CONSULTATION: 11/19/2016 DATE OF CONSULTATION: 11/19/2016. ATTENDING OF RECORD: Dr. Morgan. REASON FOR CONSULTATION: End-stage renal disease. HISTORY OF PRESENT ILLNESS: This is a 31-year-old female who dialyzes Mondays, Wednesdays, and Fridays at the [facility] dialysis unit. 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 The patient was doing well over the weekend and still does urinate; however, started developing chest pressure and shortness of breath with difficulty breathing. The patient came to the Emergency Room and found to be hypertensive. The patient currently doing better this morning. Blood pressure under better control and is tentatively scheduled for dialysis this morning. PAST MEDICAL HISTORY: 1. End-stage renal disease status post transplant which failed, secondary to noncompliance. 2. Obesity. 3. Depression. 4. Anxiety. PAST SURGICAL HISTORY: , kidney transplant, tunneled dialysis catheter, fistula placement. FAMILY HISTORY: Mother with diabetes, father with Crohn's, brother with heart disease. SOCIAL HISTORY: No alcohol, no drugs, history of tobacco abuse in the past. REVIEW OF SYSTEMS: The patient does suffer from anxiety and depression; however, overall much better. The patient also with a history of noncompliance, but has been coming to dialysis more regularly. Positive shortness of breath. Positive chest pressure, positive nausea, no vomiting, no diarrhea or constipation, no fevers or chills. No headaches or blurry vision, no dysphagia. No rash or itching. All other review of systems otherwise negative. CURRENT MEDICATIONS: Tums 1500 mg at night, lisinopril 20 mg at night, Remeron 30 mg at night, trazodone 50 mg at night, heparin 5,000 units subQ q. 12, Lexapro 20 mg in the morning, Pepcid 40 mg daily, PhosLo 3 with meals. PHYSICAL EXAMINATION: VITAL SIGNS: Temperature 36.6, pulse 81, respiratory rate 16, blood pressure 143/87, satting 95% on room air. GENERAL: Awake, alert, oriented x3. EYES: No scleral icterus. EARS, NOSE, THROAT: Moist mucous membranes. NECK: Supple. PULMONARY: Clear to auscultation. CARDIAC: Regular rate and rhythm. ABDOMEN: Bowel sounds positive, soft, nontender. EXTREMITIES: No clubbing, cyanosis or edema. NEUROLOGICALLY: Nonfocal. DERMATOLOGIC: No rash or ulcers noted. LABORATORIES: Pending for this morning. Last night, sodium level 139, potassium 5.1, chloride is 104, bicarbonate is 20, BUN 77, creatinine is 14, glucose 78, calcium 7.1, mag is 2.8. LFTs are normal. Albumin is 3.3. Troponins negative. White count is 5. H\T\H 8.5 and 25.8, platelet count 131. INR is 1. Urine test is negative. UA shows specific gravity 1.011, pH 7.5, 5-10 WBCs, greater than 30 epis. Chest x-ray shows mild to moderate enlargement of the cardiac silhouette. Mild pulmonary edema. IMPRESSION AND PLAN: 1. End-stage renal disease: The patient normally dialyzed Mondays, Wednesdays, and Fridays, missed Saturday's dialysis and will tentatively plan for dialysis today on a 2K bath and 3 liters UF as tolerated to help control blood pressure better. 2. Anemia of renal failure. Hemoglobin level is down to 8.5 and will redose Procrit to help improve the hemoglobin levels. No indication for emergent dialysis at this time. 3. Renal osteodystrophy. We will continue patient's phosphate binders. Calcium levels are also low at 7.1 and is on Tums at night before she goes to bed. Will follow calcium levels while here in the hospital. 4. Access: The patient has a good working fistula, does have a tunneled line and was tentatively planning to be removed tomorrow. Vascular surgery has been consulted to consider possible removal as an inpatient. Appreciate consultation. MATTHEW
[2016-11-19 15:22] LABS: BUN/CREATININE RATIO 4.8 (10-20); CALCIUM 7.4 mg/dl (8.5-10.1); CREATININE 7.3 mg/dl (0.60-1.20); POTASSIUM 3.7 mmol/L (3.5-5.1)
[2016-11-19 15:28] LABS: HEPATITIS B AB NEG
[2016-11-19] MEDS ORDERED: ONDANSETRON INJ 2 MG/ML 2 ML VIAL ONE (18:30)
[2016-11-19] MEDS ORDERED: ONDANSETRON INJ 2 MG/ML 2 ML VIAL IV PRN (18:45)
--- NOTE | 2016-11-19 19:50 | Progress Note ---
Internal Med Progress Note Date of Service: Nov 19, 2016. Provider Documentation: SUBJECTIVE: had dialysis today sob improved still had chest pain but better than yesterday afebrile OBJECTIVE: Vital Signs-as noted below Exam: General-alert and oriented x 3 Not in distress ENT-normal hearing Neck-no neck masses Lungs-cta b/l no wheezing no crackles Heart-s1 and s2 heard regular rate and rhythm no murmurs' Abdomen-soft bowel sounds present non tender no distension Extremities- no erythema Neuro-alert and awake moves extremities Lab data as noted below. ASSESSMENT & PLAN: DYSPNEA chest pain Secondary to pulmonary edema +/- hypertensive urgency. missed HD received dialysis today improving but still has some chest pain. mild elevation of troponin will trend troponin and follow echo HYPERTENSIVE URGENCY mostlikely secondary to missed dialysis treatment and fluid overload. Topical nitrates applied in ED. currently on IV labetalol PRN. on lisinopril. will monitor CKD V ON HEMODIALYSIS K 5.1. Consulted Nephrology for HD management. Consult Vascular Surgery- patient due for removal of hemodialysis cath in am DM TYPE II Well-controlled. Hgb A1C 4.0 on 11/13/16. No longer needing insulin or other treatment. will Follow. DEPRESSION on trazodone and escitalopram. VTE PROPHYLAXIS SQ heparin. Ambulate. DISPOSITION to be determined Vital Signs: Date Time Temp Pulse Resp B/P Pulse Ox O2 Delivery O2 Flow Rate FiO2 11/19/16 16:00 Room Air 11/19/16 15:46 36.6 96 18 167/105 91 Room Air 11/19/16 14:00 36.7 81 16 138/81 96 Room Air 11/19/16 13:00 Room Air 11/19/16 13:00 37.1 82 154/97 11/19/16 12:30 80 154/95 11/19/16 12:00 80 138/93 11/19/16 11:30 78 160/98 11/19/16 11:00 78 158/99 11/19/16 10:30 78 160/93 11/19/16 10:00 81 155/90 11/19/16 09:45 79 143/91 11/19/16 09:30 77 145/93 11/19/16 09:12 36.5 79 149/93 11/19/16 08:00 Room Air 11/19/16 07:50 36.6 81 16 143/87 95 Room Air 11/19/16 04:00 Room Air 11/19/16 03:56 36.6 82 16 149/84 93 Room Air 11/18/16 23:59 Room Air 11/18/16 23:15 36.4 88 16 169/105 98 Room Air 11/18/16 22:52 85 19 177/109 94 11/18/16 22:05 89 21 95 Room Air 11/18/16 22:00 168/110 11/18/16 21:35 90 22 96 Room Air 11/18/16 21:30 173/110 11/18/16 21:05 84 20 97 Room Air 11/18/16 21:00 160/109 11/18/16 21:00 96 Nasal Cannula 2.0 11/18/16 20:53 85 19 169/117 97 Nasal Cannula 2.0 11/18/16 20:53 169/117 11/18/16 20:53 97 Nasal Cannula 2.0 11/18/16 20:35 84 26 93 Nasal Cannula 2.0 11/18/16 20:32 180/111 11/18/16 20:00 168/109 11/18/16 19:52 25 91 Nasal Cannula 3.0 11/18/16 19:52 91 Nasal Cannula 3.0 11/18/16 19:48 85 22 162/106 89 Nasal Cannula 2.0 11/18/16 19:48 162/106 Lab Results: Results Past 24 Hours Test 11/18/16 23:45 11/19/16 07:04 11/19/16 14:15 11/19/16 16:19 Range/Units Urine Color YELLOW Urine Appearance CLEAR CLEAR Urine pH 7.5 4.5-7.5 Urine Specific [place] 1.011 1.000-1.030 Urine Protein 1+ NEG Urine Glucose (UA) 1+ NEG Urine Ketones NEG NEG Urine Occult Blood TRACE NEG Urine Nitrite NEG NEG Urine Bilirubin NEG NEG Urine Urobilinogen NEG NEG Urine Leukocyte Esterase NEG NEG Urine WBC (Auto) 5-10 0-5 /hpf Urine RBC (Auto) 0-4 0-4 /hpf Urine Hyaline Casts (Auto) 1-5 0-5 /lpf Urine Epithelial Cells (Auto) >30 0-5 /lpf Urine Bacteria (Auto) 1+ NEG Urine Test NEG NEG Bedside Glucose 86 72 70-90 mg/dl Sodium Level 138 136-145 mmol/L Potassium Level 3.7 3.5-5.1 mmol/L Chloride Level 99 98-107 mmol/L Carbon Dioxide Level 27 21-32 mmol/L Anion Gap 12.0 3-11 mmol/L Blood Urea Nitrogen 35 7-18 mg/dl Creatinine 7.30 0.60-1.20 mg/dl Est Creatinine Clear Calc Drug Dose 12.4 ml/min Estimated GFR () 7.9 Estimated GFR (Non- 6.8 BUN/Creatinine Ratio 4.8 10-20 Random Glucose 70 70-99 mg/dl Calcium Level 7.4 8.5-10.1 mg/dl Troponin I 0.066 0-0.045 ng/ml Hepatitis B Surface Antigen NEG NEG Hepatitis B Surface Antibody NEG Microbiology Results 11/18/16 Urine Culture, Received Pending
[2016-11-19] MEDS: TRAZODONE HCL 50 MG TAB PO SCH (20:23)
[2016-11-19] MEDS: MIRTAZAPINE TAB 15 MG TAB PO SCH (20:24)
[2016-11-19] MEDS: LISINOPRIL 20 MG TAB PO SCH (20:24)
[2016-11-19] MEDS: CALCIUM CARBONATE 500 MG CHEWABLE PO SCH (20:24)
[2016-11-20] VITALS (11 sets, daily range): BP systolic 136–158; BP diastolic 79–103; PULSE 73–87; TEMP 36.6–37.1; O2SAT 91–95
[2016-11-20 06:16] LABS: BASO % 0.2 %; BASO ABS # 0.01 K/uL (0-0.2); EOS % 3.8 %; HEMATOCRIT 26.3 % (37-47); IG% 0.2 %; LYMPH % 15.6 %; LYMPH ABS # 0.77 K/uL (1.2-3.4); MEAN CELL VOLUME 95.6 fL (80-100); MEAN CORPUSCULAR HEMOGLOBIN 31.3 pg (25-34); MEAN CORPUSCULAR HGB CONC 32.7 g/dl (32-36); MEAN PLATELET VOLUME 10.2 fL (7.4-10.4); MONO % 7.5 %; NEUT % 72.7 %; PLATELET COUNT 136 K/uL (130-400); RED BLOOD COUNT 2.75 M/uL (4.2-5.4); WHITE BLOOD COUNT 4.95 K/uL (4.8-10.8)
[2016-11-20 07:00] LABS: BUN/CREATININE RATIO 4.6 (10-20); CALCIUM 7.4 mg/dl (8.5-10.1); CREATININE 9.9 mg/dl (0.60-1.20); POTASSIUM 4.7 mmol/L (3.5-5.1)
--- NOTE | 2016-11-20 07:49 | Progress Note ---
Progress Note Date of Service Nov 20, 2016. Progress Note Patient for removal of her permcath. I have discussed the risks options and benefits of the procedure with the patient. The patient understands the risks options and benefits and agrees to the procedure. I have examined the patient, reviewed the History & Physical and in the interval since the performance of the History & Physical I have noted the following changes of clinical significance: No changes noted
--- NOTE | 2016-11-20 07:50 | Procedure Note ---
Pre-Mod Sedation Assessment General Date of Moderate Sedation: Nov 20, 2016. Vital Signs: Vital Signs Past 12 Hours Date Time Temp Pulse Resp B/P Pulse Ox O2 Delivery O2 Flow Rate FiO2 11/20/16 05:21 Room Air 11/20/16 04:00 Room Air 11/20/16 03:20 36.7 87 18 156/101 94 Room Air 11/20/16 00:50 143/87 11/20/16 00:01 92 Room Air 11/19/16 23:30 36.4 93 18 163/100 92 Room Air 11/19/16 20:01 37.2 88 18 158/96 92 Room Air 11/19/16 20:00 Room Air Pre-Sedation Airway Assessment Oral Cavity: WNL Short Thick Neck: No Hx of Sleep Apnea: No Smoking Status: Current Every Day Smoker Mallampati Classification: Class I ASA Classification: Class II Notes The planned sedation has been discussed with the patient and consent obtained. I have identified the patient, determined the appropriateness of sedation and have assessed the patient immediately prior to the procedure. All medicine(s) and interventions are by my order.
[2016-11-20 08:04] LABS: COMPLETE YES
[2016-11-20] MEDS: FENTANYL CITRATE INJ 50 MCG/1 ML 2 ML VIAL IV ONE (08:10)
[2016-11-20] MEDS ORDERED: FENTANYL CITRATE INJ 50 MCG/1 ML 2 ML VIAL IV ONE (08:10)
[2016-11-20] MEDS ORDERED: MIDAZOLAM HCL 1 MG/ML 2ML VIAL IV ONE (08:10)
[2016-11-20] MEDS: MIDAZOLAM HCL 1 MG/ML 2ML VIAL IV ONE (08:10)
[2016-11-20] MEDS ORDERED: LIDOCAINE HCL 1% 20 ML VIAL INJ ONE (08:11)
--- NOTE | 2016-11-20 08:21 | Procedure Note ---
Post-Moderate Sedation Plan General Date of Moderate Sedation Nov 20, 2016. Vital Signs: Vital Signs Past 12 Hours Date Time Temp Pulse Resp B/P Pulse Ox O2 Delivery O2 Flow Rate FiO2 11/20/16 07:56 36.9 83 16 154/99 95 Room Air 11/20/16 07:49 36.7 18 156/101 94 Room Air 2.0 11/20/16 05:21 Room Air 11/20/16 04:00 Room Air 11/20/16 03:20 36.7 87 18 156/101 94 Room Air 11/20/16 00:50 143/87 11/20/16 00:01 92 Room Air 11/19/16 23:30 36.4 93 18 163/100 92 Room Air Review - Discharge Plan Post Moderate Sedation Plan: On clinical assessment, the patient appears to have tolerated the conscious sedation without complications. Patient is recovering as anticipated. Patient will continue to be monitored by nursing and may be discharged when conscious sedation discharge criteria are met.
--- NOTE | 2016-11-20 08:21 | [facility] Post Operative Brief Note ---
Immediate Operative Summary Operative Date Nov 20, 2016. Pre-Operative Diagnosis Functioning Fistula Post-Operative Diagnosis same Procedure(s) Performed Removal Of Perm Catheter Modereate conscious sedation ([id number]) Surgeon Dr. Claudio Half Sole Fitter Surgeon(s) Dr. Ibarra Estimated Blood Loss 2 ml Findings cathteter and cuff removed Specimens A. explanted perm catheter Anesthesia Local with conscious sedation Complication(s) None Disposition
--- NOTE | 2016-11-20 08:56 | DIAGNOSTIC IMAGING REPORT ---
DATE OF PROCEDURE: 11/18/2016 PREOPERATIVE DIAGNOSIS: End-stage renal disease with a functioning AV fistula. POSTOPERATIVE DIAGNOSIS: Same. PROCEDURE: Removal of left internal jugular tunneled dialysis catheter. SURGEON: Michael Claudio MD CAMP BOSS: Alessandro Ibarra MD ANESTHESIA: Local plus conscious sedation.(10min) ESTIMATED BLOOD LOSS: 2 mL. COMPLICATIONS: None. INDICATIONS: This is a 31-year-old female, with end-stage renal disease. She is status post a kidney transplant. She remains on dialysis with a functioning AV fistula. She had a previously placed tunneled catheter. Removal of the catheter was indicated for prevention of infection. DETAILS OF PROCEDURE: The patient was brought to the endovascular suite and placed in supine position. A timeout was performed and all parties agreed to correct patient and procedure to be performed. Appropriate surgical prophylactic antibiotics were administered within one hour of the incision. The sutures were removed. The tract was numbed with approximately 8 mL of local anesthetic. Using a blunt dissection, the tract of the catheter was gently dilated. The cuff was encountered. The cuff was grasped and gently pulled down. There was a small amount of fibrous tissue which was cut with an 11 blade scalpel. The catheter was freed up. It was removed in its entirety. Pressure was held on the access site and on the chest wall exit site. Hemostasis was achieved. The patient was transferred to recovery room in satisfactory condition with no apparent complications. IDr. Claudio was present and scrubbed for the entire procedure. [facility] STATE HOSPITALEdmundo
[2016-11-20] MEDS: HEPARIN SOD 5000 UNIT/0.5 ML CARP SQ SCH ×2 (09:00→20:34)
[2016-11-20] MEDS: FAMOTIDINE 20 MG TAB PO SCH (09:39)
[2016-11-20] MEDS: CALCIUM ACETATE 667MG GELCAP PO SCH ×3 (09:40→15:11)
[2016-11-20] MEDS: ESCITALOPRAM OXALATE 20 MG TAB PO SCH (09:42)
[2016-11-20] MEDS: TRAMADOL HCL 50 MG TAB PO PRN ×2 (11:35→19:14)
--- NOTE | 2016-11-20 12:21 | ECHOCARDIOGRAM REPORT ---
*NOTICE TO RECEIVING [employer] This information is strictly Confidential and protected under [place] law. [place] law prohibits you from making any further disclosure of this information unless further disclosure is expressly permitted by the written consent of the person to whom it pertains or is authorized by law. A general authorization for the release of medical or other information is not sufficient for this purpose. Hospital accepts no responsibility if the information is made available to any other person, INCLUDING THE PATIENT. Interpretation Summary * Name: NATHALIA DUTTON Study Date: 11/20/2016 06:41 AM BP: 156/101 mmHg * Patient Location: C.2T\S\E215\S\1 HR: 87 * : 1985 (M/d/yyyy) Gender: Female Height: 66 in * Age: 31 yrs Ethnicity: CA Weight: 192 lb * Ordering Physician: Daquan Morgan * Referring Physician: Self, Referred * Performed By: Radha Link RDCS * * Reason For Study: CHEST PAIN * BSA: 2.0 m2 * History: CHEST PAIN * The study was technically adequate. * -- Conclusions -- * The left ventricular wall motion is normal. * Ejection Fraction = 50-55%. * There is mild mitral regurgitation. * Grade I diastolic dysfunction, (abnormal relaxation pattern). * There is a trivial circumferential pericardial effusion. * There are no echocardiographic indications of cardiac tamponade. Procedure Details * A complete two-dimensional transthoracic echocardiogram was performed (2D, M-mode, Doppler and color flow Doppler). Left Ventricle * The left ventricle is normal in size. * There is normal left ventricular wall thickness. * Left ventricular systolic function is normal. * Ejection Fraction = 50-55%. * The left ventricular wall motion is normal. Right Ventricle * The right ventricle is normal size. * The right ventricular systolic function is normal as assessed by tricuspid annular plane systolic excursion (TAPSE) (normal >1.5 cm). Atria * The left atrial size is normal. * Right atrial size is normal. * There is no evidence of atrial septal defect, but resolution does not allow assessment for a patent foramen ovale. Mitral Valve * The mitral valve is normal. * There is no mitral valve stenosis. * There is mild mitral regurgitation. Tricuspid Valve * The tricuspid valve is normal. * There is no tricuspid stenosis. * Significant tricuspid regurgitation is absent. Aortic Valve * The aortic valve is trileaflet. * Aortic stenosis is absent. * There is no significant aortic regurgitation. Pulmonic Valve * The pulmonary valve is not well seen, but the Doppler examination is normal without significant regurgitation or stenosis. Great Vessels * The aortic root and proximal ascending aorta are normal sized. Pericardium/Pleural * There is a trivial circumferential pericardial effusion. * There are no echocardiographic indications of cardiac tamponade. Great Vessels * Normal inferior vena cava diameter and respiratory variation suggests normal central venous pressure. * Normal inferior vena cava size and collapsability with sniff indicates a normal right atrial pressure of 3 mmHg Left Ventricular Diastolic Function * Grade I diastolic dysfunction, (abnormal relaxation pattern). MMode 2D Measurements and Calculations IVSd 0.87 cm IVSs 1.4 cm LVIDd 5.2 cm LVIDs 3.8 cm LVPWd 1.4 cm LVPWs 2.0 cm IVS/LVPW 0.61 FS 26.5 % EDV(Teich) 130.3 ml ESV(Teich) 63.2 ml EF(Teich) 51.5 % EDV(cubed) 141.7 ml ESV(cubed) 56.2 ml EF(cubed) 60.3 % % IVS thick 57.7 % % LVPW thick 41.5 % LV mass(C)d 234.9 grams LV mass(C)dI 119.5 grams/m\S\2 LV mass(C)s 266.9 grams LV mass(C)sI 135.8 grams/m\S\2 SV(Teich) 67.1 ml SI(Teich) 34.2 ml/m\S\2 SV(cubed) 85.5 ml SI(cubed) 43.5 ml/m\S\2 Ao root diam 3.2 cm Ao root area 8.3 cm\S\2 LA dimension 3.6 cm LA/Ao 1.1 LVAd ap4 39.4 cm\S\2 LVLd ap4 9.4 cm EDV(MOD-sp4) 139.3 ml EDV(sp4-el) 140.4 ml LVAs ap4 26.1 cm\S\2 LVLs ap4 8.5 cm ESV(MOD-sp4) 69.5 ml ESV(sp4-el) 68.3 ml EF(MOD-sp4) 50.1 % EF(sp4-el) 51.3 % LVAd ap2 39.6 cm\S\2 LVLd ap2 9.5 cm EDV(MOD-sp2) 140.9 ml EDV(sp2-el) 140.8 ml LVAs ap2 26.2 cm\S\2 LVLs ap2 8.7 cm ESV(MOD-sp2) 69.8 ml ESV(sp2-el) 67.2 ml EF(MOD-sp2) 50.5 % EF(sp2-el) 52.3 % LVLd %diff 0.68 % EDV(MOD-bp) 140.0 ml LVLs %diff 1.8 % ESV(MOD-bp) 69.1 ml EF(MOD-bp) 50.7 % SV(MOD-sp4) 69.7 ml SI(MOD-sp4) 35.5 ml/m\S\2 SV(MOD-sp2) 71.2 ml SI(MOD-sp2) 36.2 ml/m\S\2 SV(MOD-bp) 71.0 ml SI(MOD-bp) 36.1 ml/m\S\2 SV(sp4-el) 72.1 ml SI(sp4-el) 36.7 ml/m\S\2 SV(sp2-el) 73.6 ml SI(sp2-el) 37.4 ml/m\S\2 Doppler Measurements and Calculations MV E max rosa 96.3 cm/sec MV A max rosa 105.0 cm/sec MV E/A 0.92 MV dec time 0.16 sec Ao V2 max 146.0 cm/sec Ao max PG 8.5 mmHg Ao max PG (full) 5.9 mmHg LV V1 max PG 2.6 mmHg LV V1 max 80.4 cm/sec TR max rosa 214.8 cm/sec
--- NOTE | 2016-11-20 14:04 | Cardiology Consultation ---
Cardiology Consultation Date of Consultation: Nov 20, 2016 History of Present Illness Patient is a 31 year old female seen in cardiology consultation per the request of Dr Morgan for the evaluation of chest discomfort. Patient presented to ED with chest discomfort. She had missed her dialysis session on Saturday and noted pain in her chest the next day. This worsened on Saturday with a Stabbing pain and she was not able to get comfortable. On presentation to the ED she was hypertensive with BP of 185 /125 mm Hg and CXR suggested pulmonary edema. She underwent HD yesterday and rudy better. Her tunneled HD catheter was removed this am , as her L UExt AF fistula has now matured to the point that it can be used for access. She noted recurrent chest pain without SOB today. EKG performed this am revealed SR with new lateral T wave inversions. Her troponin has been mildly elevated. On physical examination the discomfort is reproduced with deep inspiration. Her echocardiogram performed today reveals a trivial sized circumferential pericardial effusion. There are no echocardiographic indications of cardiac tamponade. History PAST MEDICAL HISTORY: 1. Focal segmental glomerular sclerosis with resultant ESRD 2. Type 2 diabetes mellitus 3. Hypertension 4. Migraines 5. Anxiety 6. Depression PAST SURGICAL HISTORY: 1. Tunneled dialysis catheter and follow, 2015 2. Kidney transplant, subsequent failure 3. History of prior knee surgery 4. History of section 5. History of tubal ligation SOCIAL HISTORY: No substance abuse. Nonsmoker. Review Of Systems See above for pertinent positives & negatives. A total of 10 systems reviewed and were otherwise negative. Allergies Coded Allergies: Cefaclor (Verified Allergy, Unknown, Rash, 10/03/16) Reported by PT. Medications Reported Home Medications Medications Dose Route/Sig Max Daily Dose Days Date Category Dose Instructions Trazodone (Trazodone HCl) 50 Mg Tab 50 Mg PO HS 11/18/16 Reported Zestril (Lisinopril) 20 Mg Tab 20 Mg PO HS 11/18/16 Reported Phoslo 667 Mg (Calcium Acetate) 667 Mg Cap 2,001 Mg PO WM 11/18/16 Reported 3 CAPSULES WITH SNACKS Lexapro (Escitalopram Oxalate) 20 Mg Tab 20 Mg PO QAM 11/18/16 Reported Remeron (Mirtazapine) 30 Mg Tab 30 Mg PO HS 08/24/16 Reported Tums (Calcium Carbonate) 500 Mg Chew 1,500 Mg PO HS 07/05/16 Reported Ventolin Hfa (Albuterol) 200 Puffs/[id number] Mcg Aers 2 Puffs INH QID PRN 07/05/16 Reported Pepcid (Famotidine) 40 Mg Tab 40 Mg PO QAM 07/05/16 Reported Phoslo 667 Mg (Calcium Acetate) 667 Mg Cap 1,334 Mg PO WITH SNACKS 06/27/16 Reported 2 CAPSULES WITH SNACKS Physical Exam Vital Signs (Last 8hrs): Last 8 Hrs Date Time Temp Pulse Resp B/P Pulse Ox O2 Delivery O2 Flow Rate FiO2 11/20/16 12:00 Room Air 11/20/16 11:39 36.9 76 16 136/79 94 Room Air 11/20/16 09:18 36.6 73 12 145/88 94 Room Air 11/20/16 08:38 36.7 86 16 158/91 92 Room Air 11/20/16 08:00 Room Air 11/20/16 07:56 36.9 83 16 154/99 95 Room Air 11/20/16 07:49 36.7 18 156/101 94 Room Air 2.0 General Appearance: Alert and Oriented x3. NAD. Head: Normocephalic Atraumatic. Eyes: PERRLA, EOMI, conjunctiva and sclera clear Neck: Supple. No carotid bruits noted. No JVD. No HJD. Respiratory: Breath sounds clear to auscultation bilaterally. No w/r/r. Cardiovascular: Reg rate and rhythm. S1 and S2 noted. No murmurs, rubs, gallops. PMI non displace. Abdomen: Normal bowel sounds, soft nontender. no abdominal bruits. Extremities: No edema, no clubbing or cyanosis. distal pulses 2/4 bilaterally. Neuro: No focal deficits. Psychiatric: Normal affect. Data Last 24 Hours Test 11/19/16 14:15 11/19/16 16:19 11/19/16 19:59 11/19/16 20:35 Sodium Level 138 mmol/L Potassium Level 3.7 mmol/L Chloride Level 99 mmol/L Carbon Dioxide Level 27 mmol/L Anion Gap 12.0 mmol/L Blood Urea Nitrogen 35 mg/dl Creatinine 7.30 mg/dl Est Creatinine Clear Calc Drug Dose 12.4 ml/min Estimated GFR () 7.9 Estimated GFR (Non- 6.8 BUN/Creatinine Ratio 4.8 Random Glucose 70 mg/dl Calcium Level 7.4 mg/dl Troponin I 0.066 ng/ml 0.139 ng/ml Hepatitis B Surface Antigen NEG Hepatitis B Surface Antibody NEG Bedside Glucose 72 mg/dl 87 mg/dl Test 11/20/16 05:24 11/20/16 07:26 11/20/16 11:06 White Blood Count 4.95 K/uL Red Blood Count 2.75 M/uL Hemoglobin 8.6 g/dL Hematocrit 26.3 % Mean Corpuscular Volume 95.6 fL Mean Corpuscular Hemoglobin 31.3 pg Mean Corpuscular Hemoglobin Concent 32.7 g/dl Platelet Count 136 K/uL Mean Platelet Volume 10.2 fL Neutrophils (%) (Auto) 72.7 % Lymphocytes (%) (Auto) 15.6 % Monocytes (%) (Auto) 7.5 % Eosinophils (%) (Auto) 3.8 % Basophils (%) (Auto) 0.2 % Neutrophils # (Auto) 3.60 K/uL Lymphocytes # (Auto) 0.77 K/uL Monocytes # (Auto) 0.37 K/uL Eosinophils # (Auto) 0.19 K/uL Basophils # (Auto) 0.01 K/uL RDW Standard Deviation 52.8 fL RDW Coefficient of Variation 15.2 % Immature Granulocyte % (Auto) 0.2 % Immature Granulocyte # (Auto) 0.01 K/uL Red Blood Cell Morphology Unremarkable Sodium Level 138 mmol/L Potassium Level 4.7 mmol/L Chloride Level 100 mmol/L Carbon Dioxide Level 29 mmol/L Anion Gap 9.0 mmol/L Blood Urea Nitrogen 46 mg/dl Creatinine 9.90 mg/dl Est Creatinine Clear Calc Drug Dose 9.0 ml/min Estimated GFR () 5.4 Estimated GFR (Non- 4.7 BUN/Creatinine Ratio 4.6 Random Glucose 72 mg/dl Calcium Level 7.4 mg/dl Troponin I 0.154 ng/ml Bedside Glucose 82 mg/dl 95 mg/dl Imaging: as per HPI EKG: as per HPI Telemetry reviewed: SR Assessment & Plan Impression: 31 year old female 1. Chest pressure, history, echo, and exam suggestive of pericarditis, sick child at home 2. Abnormal EKG, new T wave inversions, will follow , if pt does not feel improved with treatment of pericarditis, may need to consider ischemic work up. 3. Pulmonary edema pattern on admission CXR, with HTN, likely due to volume overload -improved post HD Plan: Given renal disease would like to avoid ibuprofen and high dose Aspirin. Plan for one time dose of IV Solumedrol, followed by colchicine dosed for HD patient, dose is 0.3 mg PO , two times per week after HD. Repeat EKG in am. Patient with negative DSE in 05/2016 and in 2011. Repeat troponin in am, likely elevated due to volume overload/ HTN, myocardial strain on admission, will trend with repeat tomorrow given EKG findings.
[2016-11-20] MEDS ORDERED: METHYLPREDNISOLONE IV 10 MG in SYRINGE 0 ML IV SCH (14:30)
[2016-11-20] MEDS ORDERED: COLCHICINE 0.6 MG TAB PO SCH (14:30)
--- NOTE | 2016-11-20 15:02 | Nephrology Progress Note ---
Nephrology Progress Note Date of Service: Nov 20, 2016. Subjective 31 year old female with ESRD who presented to the ED with chest pain. Per cardiology echocardiogram performed today reveals a trivial sized circumferential pericardial effusion. There are no echocardiographic indications of cardiac tamponade. Exam and interview suggest Pericarditis and patient is being placed on iv solumedrol and colchicine dosed with HD in mind. Trying to avoid NSAIDs due to ESRD status. Patient states that chest pain is improving since admission. Patient continues to have discomfort with deep respiration but otherwise has no other complaints. Appetite is good. Denies any SOB, nausea, vomiting, cramping, or diarrhea. still with urine output. no urinary symptoms. Had dialysis yesterday and tolerated it well. Objective Date Time Temp Pulse Resp B/P Pulse Ox O2 Delivery O2 Flow Rate FiO2 11/20/16 12:00 Room Air 11/20/16 11:39 36.9 76 16 136/79 94 Room Air 11/20/16 09:18 36.6 73 12 145/88 94 Room Air 11/20/16 08:38 36.7 86 16 158/91 92 Room Air 11/20/16 08:00 Room Air 11/20/16 07:56 36.9 83 16 154/99 95 Room Air 11/20/16 07:49 36.7 18 156/101 94 Room Air 2.0 11/20/16 05:21 Room Air 11/20/16 04:00 Room Air 11/20/16 03:20 36.7 87 18 156/101 94 Room Air 11/20/16 00:50 143/87 11/20/16 00:01 92 Room Air 11/19/16 23:30 36.4 93 18 163/100 92 Room Air 11/19/16 20:01 37.2 88 18 158/96 92 Room Air 11/19/16 20:00 Room Air 11/19/16 16:00 Room Air 11/19/16 15:46 36.6 96 18 167/105 91 Room Air Physical Exam: General: Alert, no distress, well nourished and well developed Head: Normocephalic, No masses, lesions, tenderness, or abnormalities ENT: no scleral icterus, moist mucosal membranes Neck: Supple, no adenopathy Heart: Regular rate and rhythm, no murmurs, no gallops Lungs: reduced at bases due to decreased respiratory effort. chest discomfort with deep respiration Abdomen: Soft, Nontender, nondistended, +Bowel Sounds Extremities: No joint deformities, effusion, or inflammation, no edema, no clubbing +AVF Neuro Exam: Alert and oriented x 3 with fluent speech, no focal motor/sensory deficits Current Inpatient Medications Medications (Trade) Dose Ordered Sig/Sachin Route Start Time Stop Time Status Last Admin Dose Admin Heparin Sodium (Porcine) (Heparin Sq 5000 Unit/0.5ml) 5,000 unit Q12 SQ 11/19/16 09:00 12/19/16 08:59 Acetaminophen (Tylenol Tab) 650 mg Q4H PRN PO 11/18/16 22:15 12/18/16 22:14 11/20/16 09:24 650 MG Nitroglycerin (Nitrostat Tab) 0.4 mg UD PRN SL 11/18/16 22:15 12/18/16 22:14 Labetalol HCl (Normodyne IV) 10 mg Q30M PRN IV 11/18/16 22:30 12/18/16 22:29 11/19/16 23:35 10 MG Calcium Acetate (Phoslo Cap) 1,334 mg TIDM PRN PO 11/19/16 07:30 12/19/16 07:29 Calcium Acetate (Phoslo Cap) 2,001 mg AC PO 11/19/16 07:00 12/19/16 07:59 11/20/16 11:34 2,001 MG Calcium Carbonate (Tums Chew Tab) 1,500 mg HS PO 11/19/16 21:00 12/19/16 20:59 11/19/16 20:24 1,500 MG Escitalopram Oxalate (Lexapro Tab) 20 mg QAM PO 11/19/16 09:00 12/19/16 08:59 11/20/16 09:42 20 MG Famotidine (Pepcid Tab) 40 mg QAM PO 11/19/16 09:00 12/19/16 08:59 11/20/16 09:39 40 MG Lisinopril (Zestril Tab) 20 mg HS PO 11/19/16 21:00 12/19/16 20:59 11/19/16 20:24 20 MG Mirtazapine (Remeron Tab) 30 mg HS PO 11/19/16 21:00 12/19/16 20:59 11/19/16 20:24 30 MG Trazodone HCl (Desyrel Tab) 50 mg HS PO 11/19/16 21:00 12/19/16 20:59 11/19/16 20:23 50 MG Ondansetron HCl (Zofran Inj) 4 mg Q6H PRN IV 11/19/16 18:45 12/19/16 18:44 Tramadol HCl (Ultram Tab) 50 mg Q6 PRN PO 11/20/16 08:45 12/20/16 08:44 11/20/16 11:35 50 MG Colchicine (Colchicine Tab) 0.3 mg MoFr@1600 PO 11/20/16 14:30 12/20/16 14:29 Last 24 Hours Test 11/19/16 16:19 11/19/16 19:59 11/19/16 20:35 11/20/16 05:24 Bedside Glucose 72 mg/dl 87 mg/dl Troponin I 0.139 ng/ml 0.154 ng/ml White Blood Count 4.95 K/uL Red Blood Count 2.75 M/uL Hemoglobin 8.6 g/dL Hematocrit 26.3 % Mean Corpuscular Volume 95.6 fL Mean Corpuscular Hemoglobin 31.3 pg Mean Corpuscular Hemoglobin Concent 32.7 g/dl Platelet Count 136 K/uL Mean Platelet Volume 10.2 fL Neutrophils (%) (Auto) 72.7 % Lymphocytes (%) (Auto) 15.6 % Monocytes (%) (Auto) 7.5 % Eosinophils (%) (Auto) 3.8 % Basophils (%) (Auto) 0.2 % Neutrophils # (Auto) 3.60 K/uL Lymphocytes # (Auto) 0.77 K/uL Monocytes # (Auto) 0.37 K/uL Eosinophils # (Auto) 0.19 K/uL Basophils # (Auto) 0.01 K/uL RDW Standard Deviation 52.8 fL RDW Coefficient of Variation 15.2 % Immature Granulocyte % (Auto) 0.2 % Immature Granulocyte # (Auto) 0.01 K/uL Red Blood Cell Morphology Unremarkable Sodium Level 138 mmol/L Potassium Level 4.7 mmol/L Chloride Level 100 mmol/L Carbon Dioxide Level 29 mmol/L Anion Gap 9.0 mmol/L Blood Urea Nitrogen 46 mg/dl Creatinine 9.90 mg/dl Est Creatinine Clear Calc Drug Dose 9.0 ml/min Estimated GFR () 5.4 Estimated GFR (Non- 4.7 BUN/Creatinine Ratio 4.6 Random Glucose 72 mg/dl Calcium Level 7.4 mg/dl Test 11/20/16 07:26 11/20/16 11:06 Bedside Glucose 82 mg/dl 95 mg/dl Other Studies: 11/18/16 11/19/16 11/20/16 08:00 08:00 08:00 Intake Total 450 ml 200 ml Output Total 450 ml 3388 ml Balance 0 ml -3188 ml Assessment & Plan 1. ESRD: patient had dialysis yesterday. Patient's volume status appropriate. potassium adequate at 4.7 today. no need for dialysis today. will plan on getting dialysis tomorrow and every M// or as clinical condition dictates. will try UF with ultimate goal to keep Hypertension under control without causing hypotension. 2. anemia of ESRD: hgb at last check was stable at 8.6. will continue with procrit during dialysis for improvement of anemia of ESRD. 3. CKD-MBD/LOKESH: to continue phosphate binders and tums. last calcium was 7.4. will continue to follow while in hospital. 4. Access: The patient has a good working fistula. Vascular surgery removed tunneled CVC. This patient was seen and treated with direct collaboration with Dr. Jo. Thank you for the opportunity to participate in this patient's care. Appreciate the Consult. ATTENDING NOTE: I performed a history and physical examination of the patient, including specifically on history- pt found to have pericarditis, on physical exam-cta, rrrr, and my impression and plan are ESRD-for dialysis tomorrow. agree with pericardial management per cardiology on steroids and colchicine. I have discussed the patient's management with Cornelia Siegel PA-C, Please refer to above note for the documented findings and plan of care. Yohana Jo DO
[2016-11-20] MEDS ORDERED: NURSING VERBAL MED ORDER ONE (17:45)
--- NOTE | 2016-11-20 19:00 | Progress Note ---
Internal Med Progress Note Date of Service: Nov 20, 2016. Provider Documentation: SUBJECTIVE: sob improved but still has some chest pain afebrile eating ok hemodynamics stable denies nausea OBJECTIVE: Vital Signs-as noted below Exam: General-alert and oriented x 3 Not in distress ENT-normal hearing Neck-no neck masses Lungs-cta b/l no wheezing no crackles Heart-s1 and s2 heard regular rate and rhythm no murmurs' Abdomen-soft bowel sounds present non tender no distension Extremities- no erythema Neuro-alert and awake moves extremities Lab data as noted below. ASSESSMENT & PLAN: DYSPNEA chest pain Secondary to pulmonary edema +/- hypertensive urgency. missed HD received dialysis sob improved but still has some chest pain. Chest pain mild elevation of troponin echo trivial pericardial effusion otherwise unremarkable possible pericarditis received steroid and colchicine will monitor. HYPERTENSIVE URGENCY mostlikely secondary to missed dialysis treatment and fluid overload. Topical nitrates applied in ED. currently on IV labetalol PRN. on lisinopril. improved will monitor CKD V ON HEMODIALYSIS K 5.1. Consulted Nephrology for HD management. Consult Vascular Surgery- and hemodialysis cath removed DM TYPE II Well-controlled. Hgb A1C 4.0 on 11/13/16. No longer needing insulin or other treatment. will Follow. DEPRESSION on trazodone and escitalopram. VTE PROPHYLAXIS SQ heparin. Ambulate. DISPOSITION possible d/c in am if stable Vital Signs: Date Time Temp Pulse Resp B/P Pulse Ox O2 Delivery O2 Flow Rate FiO2 11/20/16 18:46 37.1 74 16 156/98 91 Room Air 11/20/16 16:08 Room Air 11/20/16 16:05 36.9 85 20 145/84 94 Room Air 11/20/16 12:00 Room Air 11/20/16 11:39 36.9 76 16 136/79 94 Room Air 11/20/16 09:18 36.6 73 12 145/88 94 Room Air 11/20/16 08:38 36.7 86 16 158/91 92 Room Air 11/20/16 08:00 Room Air 11/20/16 07:56 36.9 83 16 154/99 95 Room Air 11/20/16 07:49 36.7 18 156/101 94 Room Air 2.0 11/20/16 05:21 Room Air 11/20/16 04:00 Room Air 11/20/16 03:20 36.7 87 18 156/101 94 Room Air 11/20/16 00:50 143/87 11/20/16 00:01 92 Room Air 11/19/16 23:30 36.4 93 18 163/100 92 Room Air 11/19/16 20:01 37.2 88 18 158/96 92 Room Air 11/19/16 20:00 Room Air Lab Results: Results Past 24 Hours Test 11/19/16 19:59 11/19/16 20:35 11/20/16 05:24 11/20/16 07:26 Range/Units Bedside Glucose 87 82 70-90 mg/dl Troponin I 0.139 0.154 0-0.045 ng/ml White Blood Count 4.95 4.8-10.8 K/uL Red Blood Count 2.75 4.2-5.4 M/uL Hemoglobin 8.6 12.0-16.0 g/dL Hematocrit 26.3 37-47 % Mean Corpuscular Volume 95.6 80-100 fL Mean Corpuscular Hemoglobin 31.3 25-34 pg Mean Corpuscular Hemoglobin Concent 32.7 32-36 g/dl Platelet Count 136 130-400 K/uL Mean Platelet Volume 10.2 7.4-10.4 fL Neutrophils (%) (Auto) 72.7 % Lymphocytes (%) (Auto) 15.6 % Monocytes (%) (Auto) 7.5 % Eosinophils (%) (Auto) 3.8 % Basophils (%) (Auto) 0.2 % Neutrophils # (Auto) 3.60 1.4-6.5 K/uL Lymphocytes # (Auto) 0.77 1.2-3.4 K/uL Monocytes # (Auto) 0.37 0.11-0.59 K/uL Eosinophils # (Auto) 0.19 0-0.5 K/uL Basophils # (Auto) 0.01 0-0.2 K/uL RDW Standard Deviation 52.8 36.4-46.3 fL RDW Coefficient of Variation 15.2 11.5-14.5 % Immature Granulocyte % (Auto) 0.2 % Immature Granulocyte # (Auto) 0.01 0.00-0.02 K/uL Red Blood Cell Morphology Unremarkable Sodium Level 138 136-145 mmol/L Potassium Level 4.7 3.5-5.1 mmol/L Chloride Level 100 98-107 mmol/L Carbon Dioxide Level 29 21-32 mmol/L Anion Gap 9.0 3-11 mmol/L Blood Urea Nitrogen 46 7-18 mg/dl Creatinine 9.90 0.60-1.20 mg/dl Est Creatinine Clear Calc Drug Dose 9.0 ml/min Estimated GFR () 5.4 Estimated GFR (Non- 4.7 BUN/Creatinine Ratio 4.6 10-20 Random Glucose 72 70-99 mg/dl Calcium Level 7.4 8.5-10.1 mg/dl Test 11/20/16 11:06 11/20/16 16:00 Range/Units Bedside Glucose 95 82 70-90 mg/dl
[2016-11-20] MEDS: LISINOPRIL 20 MG TAB PO SCH (20:33)
[2016-11-20] MEDS: TRAZODONE HCL 50 MG TAB PO SCH (20:33)
[2016-11-20] MEDS: CALCIUM CARBONATE 500 MG CHEWABLE PO SCH (20:33)
[2016-11-20] MEDS: MIRTAZAPINE TAB 15 MG TAB PO SCH (20:33)
[2016-11-21] VITALS (22 sets, daily range): BP systolic 145–169; BP diastolic 69–111; PULSE 68–84; TEMP 36.6–36.9; O2SAT 92–98
[2016-11-21] MEDS: ESCITALOPRAM OXALATE 20 MG TAB PO SCH (07:57)
[2016-11-21] MEDS: CALCIUM ACETATE 667MG GELCAP PO SCH ×3 (07:57→15:51)
[2016-11-21] MEDS: FAMOTIDINE 20 MG TAB PO SCH (07:58)
[2016-11-21] MEDS ORDERED: EPOETIN ALFA 10,000 UNITS/ML VIAL IV. SCH (08:00)
[2016-11-21] MEDS: HEPARIN SOD 5000 UNIT/0.5 ML CARP SQ SCH (08:02)
--- NOTE | 2016-11-21 09:38 | Cardiology Follow-Up ---
Subjective General Date of Service: Nov 21, 2016. Chief Complaint: follow up chest pain Pt evaluation today including: conversation w/ patient, physical exam History of Present Illness The patient is a 31 year old female seen in follow up. Patient feels improved. Has mild chest discomfort at site where temporary HD catheter was removed yesterday, but this is better than yesterday. Notes some degree of pleuritic chest pain with deep breaths laying in bed. Telemetry reveals SR with occasional PVCs. Allergies Coded Allergies: Cefaclor (Verified Allergy, Unknown, Rash, 10/03/16) Reported by PT. Social History Smoking Status: Current Every Day Smoker Hx Tobacco Use In Past Year?: Yes Hx Alcohol Use - Type And Amou: No Hx Substance Use - Type And Am: Yes (Morphine IV PRN.) Problem List Medical Problems: (1) Acute electrocardiogram changes Status: Acute (2) Altered mental status Status: Acute (3) Anemia Status: Acute (4) ARF (acute renal failure) Status: Acute (5) Complications, dialysis, catheter, mechanical Status: Acute (6) End stage renal disease Status: Acute (7) Headache Status: Acute (8) Hypocalcemia Status: Acute (9) Hypocalcemia Permanent Comment: She has severe Critical hypocalcemia from missing Dialysis for so long. Will give 4gm ivpb now. with dialysis it should improve further. Status: Acute (10) Non-cardiac chest pain Status: Acute (11) Otitis media Status: Acute (12) Renal failure Status: Acute (13) Renal failure Permanent Comment: She has ESRD but is super non complaint with Dialysis. has missed dialysis for more than 2 weeks. As a result has lot of biochemical indicators of missing Dialysis--very lot Hgb, very low Calcium and very high BUn and creatinine. Because her BUN and creat is so high she is at risk for Dysequlibrium syndrome. So to avoid that will have to slow incremental dialysis. Will do 2hrs today, low qb dialysis. tomorrow will be 3 hrs and then Saturday will be 4 hrs. She is c/o Pain at the CVC site but it looks fine on exam and the Imaging. Will know further with Dialysis. I am surprised that despite such low Ca++ she still looks fine and no Symptoms. Status: Chronic (14) Severe anemia Status: Acute (15) Substernal chest pain Status: Acute Physical Exam Vital Signs Last Vital Signs Documentation Date Time Temp Pulse Resp B/P Pulse Ox O2 Delivery O2 Flow Rate FiO2 11/21/16 08:00 94 Room Air 11/21/16 07:10 36.7 69 16 169/110 11/20/16 07:49 2.0 Physical Exam Constitutional: Level of Distress: NAD Lungs: Auscultation: no wheezing, no rales/crackles, no rhonchi Cardiovascular: Heart Auscultation: RRR, no murmurs, no rubs Extremities: no edema Assessment and Plan Assessment and Plan Impression: 31 year old female 1. Chest pressure, history, echo, and exam suggestive of pericarditis, sick child at home 2. New , but non specific lateral T wave changes on EKG 3. Pulmonary edema pattern on admission CXR, with HTN, likely due to volume overload -improved post HD Plan: Symptoms are not suggestive of angina. Continue colchicine, dose adjusted for dialysis patient. Plan for colchicine 0.3 mg by mouth on Mondays, and Fridays only (two days per week), after dialysis sessions to complete 4 week course. Follow up with neurology and PCP. Stable from my standpoint for discharge, to keep outpatient dialysis schedule. Oanh Ross, Laboratory Results Last 24 Hours Test 11/20/16 11:06 11/20/16 16:00 11/20/16 20:04 11/21/16 05:28 Bedside Glucose 95 mg/dl 82 mg/dl 142 mg/dl Troponin I 0.042 ng/ml Test 11/21/16 06:38 Bedside Glucose 83 mg/dl
--- NOTE | 2016-11-21 10:03 | Dialysis Progress Note ---
Nephrology Dialysis Note Date of Service: Nov 21, 2016. Subjective 31 yo female seen on dialysis. had tunneled line removed yesterday. had difficulty cannulating the fistula today and required three needles. pt with some tenderness over the tunneled line site but no more chest pain. found to have pericarditis. thought to be viral. Objective Date Time Temp Pulse Resp B/P Pulse Ox O2 Delivery O2 Flow Rate FiO2 11/21/16 08:00 94 Room Air 11/21/16 07:10 36.7 69 16 169/110 94 Room Air 11/21/16 04:23 36.6 68 16 146/97 92 Room Air 11/21/16 04:00 92 Room Air 11/21/16 00:01 Room Air 11/20/16 23:44 36.6 80 16 157/103 93 Room Air 11/20/16 20:00 Room Air 11/20/16 18:46 37.1 74 16 156/98 91 Room Air 11/20/16 16:08 Room Air 11/20/16 16:05 36.9 85 20 145/84 94 Room Air 11/20/16 12:00 Room Air 11/20/16 11:39 36.9 76 16 136/79 94 Room Air Physical Exam: General-aaox3 Eyes-no scleral icterus ENT-mmm Neck-supple Lungs-cta Heart-rrr Abdomen-bs+ s/nt/nd Extremities-no c/c/e Neuro-nonfocal Current Inpatient Medications Medications (Trade) Dose Ordered Sig/Sachin Route Start Time Stop Time Status Last Admin Dose Admin Heparin Sodium (Porcine) (Heparin Sq 5000 Unit/0.5ml) 5,000 unit Q12 SQ 11/19/16 09:00 12/19/16 08:59 11/21/16 08:02 5,000 UNIT Acetaminophen (Tylenol Tab) 650 mg Q4H PRN PO 11/18/16 22:15 12/18/16 22:14 11/20/16 09:24 650 MG Nitroglycerin (Nitrostat Tab) 0.4 mg UD PRN SL 11/18/16 22:15 12/18/16 22:14 Labetalol HCl (Normodyne IV) 10 mg Q30M PRN IV 11/18/16 22:30 12/18/16 22:29 11/19/16 23:35 10 MG Calcium Acetate (Phoslo Cap) 1,334 mg TIDM PRN PO 11/19/16 07:30 12/19/16 07:29 Calcium Acetate (Phoslo Cap) 2,001 mg AC PO 11/19/16 07:00 12/19/16 07:59 11/21/16 07:57 2,001 MG Calcium Carbonate (Tums Chew Tab) 1,500 mg HS PO 11/19/16 21:00 12/19/16 20:59 11/20/16 20:33 1,500 MG Escitalopram Oxalate (Lexapro Tab) 20 mg QAM PO 11/19/16 09:00 12/19/16 08:59 11/21/16 07:57 20 MG Famotidine (Pepcid Tab) 40 mg QAM PO 11/19/16 09:00 12/19/16 08:59 11/21/16 07:58 40 MG Lisinopril (Zestril Tab) 20 mg HS PO 11/19/16 21:00 12/19/16 20:59 11/20/16 20:33 20 MG Mirtazapine (Remeron Tab) 30 mg HS PO 11/19/16 21:00 12/19/16 20:59 11/20/16 20:33 30 MG Trazodone HCl (Desyrel Tab) 50 mg HS PO 11/19/16 21:00 12/19/16 20:59 11/20/16 20:33 50 MG Ondansetron HCl (Zofran Inj) 4 mg Q6H PRN IV 11/19/16 18:45 12/19/16 18:44 Tramadol HCl (Ultram Tab) 50 mg Q6 PRN PO 11/20/16 08:45 12/20/16 08:44 11/20/16 19:14 50 MG Colchicine (Colchicine Tab) 0.3 mg MoFr@1600 PO 11/20/16 14:30 12/20/16 14:29 11/20/16 15:11 0.3 MG Epoetin Travis (Procrit Inj) 10,000 units TODAY@0800 IV. 11/21/16 08:00 11/21/16 18:00 Diphenhydramine HCl (Benadryl Cap) 25 mg Q6H PRN PO 11/20/16 18:00 12/20/16 17:59 11/21/16 08:12 25 MG Last 24 Hours Test 11/20/16 11:06 11/20/16 16:00 11/20/16 20:04 11/21/16 05:28 Bedside Glucose 95 mg/dl 82 mg/dl 142 mg/dl Troponin I 0.042 ng/ml Test 11/21/16 06:38 Bedside Glucose 83 mg/dl Assessment & Plan 1. ESRD: seen on dialysis. 2k bath. 2 liters uf as bp tolerates. ok from renal perspective to go home once medically cleared by cardiology. 2. Anemia of renal failure-redose procrit for goal hg of 10 to 11 3. LOKESH-continue patients phosphate binders.
[2016-11-21] MEDS ORDERED: CLC6 PO (16:28)
[2016-11-21] MEDS ORDERED: CRG3125 PO (16:28)
--- NOTE | 2016-11-21 16:30 | Discharge Instructions ---
Discharge Instructions Date of Service Nov 21, 2016. Admission Reason for Admission: Chest Pain, Ckd Stage V Requiring Chronic Dialysis Discharge Discharge Diagnosis / Problem: SOB , VOLUME OVERLOAD, PERICARDITIS Discharge Goals Goal(s): Decrease discomfort, Improve function Activity Recommendations Activity Limitations: resume your previous activity . Instructions / Follow-Up Instructions / Follow-Up FOLLOWUP WITH FAMILY DOCTOR ON November AT 11:10AM FOLLOWUP WITH NEPHROLOGY SCHEDULED. NEW MEDICATION: COREG 3.125MG PO TWICE DAILY( FOR BLOOD PRESSURE). COLCHICINE 0.6MG PO ONE TABLET ON MONDAYS AND FRIDAYS AFTER DIALYSIS FOR 4 WEEKS. Current Hospital Diet Patient's current hospital diet: Renal Diet, Diabetes Type 1 Diet Discharge Diet Recommended Diet: Renal Diet Procedures Procedures Performed: Removal Of Perm Catheter Modereate conscious sedation ([id number]) Pending Studies Studies pending at discharge: no Laboratory Results Hemoglobin A1c Test 08/24/16 20:00 Range/Units Estimated Average Glucose 123 mg/dl Hemoglobin A1c 5.9 H 4.5-5.6 % Medical Emergencies . Who to Call and When: Medical Emergencies: If at any time you feel your situation is an emergency, please call 911 immediately. . Non-Emergent Contact Non-Emergency issues call your: Primary Care Provider . . "Provider Documentation" section prepared by Daquan Morgan. VTE Core Measure Inpt VTE Proph given/why not?: Unfractionated heparin SQ
--- NOTE | 2016-11-21 20:01 | Progress Note ---
Internal Med Progress Note Date of Service: Nov 21, 2016. Provider Documentation: SUBJECTIVE: no sob no chest pain afebrile ok to go home OBJECTIVE: Vital Signs-as noted below Exam: General-alert and oriented x 3 Not in distress ENT-normal hearing Neck-no neck masses Lungs-cta b/l no wheezing no crackles Heart-s1 and s2 heard regular rate and rhythm no murmurs' Abdomen-soft bowel sounds present non tender no distension Extremities- no erythema Neuro-alert and awake moves extremities Lab data as noted below. ASSESSMENT & PLAN: DYSPNEA chest pain Secondary to pulmonary edema +/- hypertensive urgency. missed HD received dialysis sob improved . Chest pain mild elevation of troponin echo trivial pericardial effusion otherwise unremarkable possible pericarditis received steroid and colchicine improved d/johnny on colchicine 0.6 mg on Mondays and Fridays after dialysis for 4 weeks HYPERTENSIVE URGENCY mostlikely secondary to missed dialysis treatment and fluid overload. Topical nitrates applied in ED. currently on IV labetalol PRN. on lisinopril. improved added coreg f/u with PCP CKD V ON HEMODIALYSIS K 5.1. Consulted Nephrology for HD management. Consult Vascular Surgery- and hemodialysis cath removed DM TYPE II Well-controlled. Hgb A1C 4.0 on 11/13/16. No longer needing insulin or other treatment. will Follow. DEPRESSION on trazodone and escitalopram. Discharged home Vital Signs: Date Time Temp Pulse Resp B/P Pulse Ox O2 Delivery O2 Flow Rate FiO2 11/21/16 17:48 36.8 84 16 98 Room Air 11/21/16 15:45 Room Air 11/21/16 15:41 36.8 84 16 145/87 98 Room Air 11/21/16 13:25 36.7 82 20 147/103 96 Room Air 11/21/16 13:13 36.9 75 168/96 11/21/16 12:48 80 167/106 11/21/16 12:30 76 166/111 11/21/16 12:15 73 162/105 11/21/16 12:00 74 165/105 11/21/16 11:45 71 148/81 11/21/16 11:30 93 Room Air 11/21/16 11:30 75 151/69 11/21/16 11:15 70 146/84 11/21/16 11:00 71 152/88 11/21/16 10:45 74 149/95 11/21/16 10:30 76 161/111 11/21/16 10:15 75 168/106 11/21/16 10:00 77 166/106 11/21/16 09:50 76 163/109 11/21/16 09:30 36.8 74 163/108 11/21/16 08:00 94 Room Air 11/21/16 07:10 36.7 69 16 169/110 94 Room Air 11/21/16 04:23 36.6 68 16 146/97 92 Room Air 11/21/16 04:00 92 Room Air 11/21/16 00:01 Room Air 11/20/16 23:44 36.6 80 16 157/103 93 Room Air Lab Results: Results Past 24 Hours Test 11/20/16 20:04 11/21/16 05:28 11/21/16 06:38 11/21/16 14:18 Range/Units Bedside Glucose 142 83 100 70-90 mg/dl Troponin I 0.042 0-0.045 ng/ml Test 11/21/16 16:05 Range/Units Bedside Glucose 114 70-90 mg/dl
[2016-11-21] MEDS ORDERED: CARVEDILOL 3.125 MG TAB PO SCH (21:00)
--- NOTE | 2016-11-22 19:08 | Discharge Summary ---
Discharge Summary Date of Service Nov 22, 2016. Discharge Summary Admission Date: Nov 18, 2016 at 22:08 Discharge Date: Nov 21, 2016 Discharge Disposition: Home Principal Diagnosis: SOB CHEST PAIN PERICARDITIS Secondary Diagnoses/Problems: 1) CKD (chronic kidney disease) stage V requiring chronic dialysis Status: Chronic (2) DM2 (diabetes mellitus, type 2) Status: Chronic (3) Focal segmental glomerulosclerosis Status: Chronic (4) HTN (hypertension) Status: Chronic (5) Migraine Procedures: B/L LOWER EXT VENOUS DOPPLER: No evidence of deep venous thrombus within the bilateral lower extremities. ECHO: * The left ventricular wall motion is normal. * Ejection Fraction = 50-55%. * There is mild mitral regurgitation. * Grade I diastolic dysfunction, (abnormal relaxation pattern). * There is a trivial circumferential pericardial effusion. There are no echocardiographic indications of cardiac tamponade Consultations: CARDIOLOGY NEPHROLOGY Medication Reconciliation New Medications: Carvedilol (Carvedilol) 3.125 Mg Tab 3.125 MG PO BID for 30 Days, #60 TAB 2 Refills Colchicine (Colcrys) 0.6 Mg Tab 0.3 MG PO MoFr@1600, #8 TAB COLCHICINE 0.6MG ONE TABLET ON SATURDAY AND SATURDAY AFTER DIALYSIS FOR FOUR WEEKS Continued Medications: Albuterol Hfa (Ventolin Hfa) 200 Puffs/88749 Mcg Aers 2 PUFFS INH QID PRN for Allergy Symptoms, INHALER Calcium Acetate (Phoslo 667 Mg) 667 Mg Cap 1334 MG PO WITH SNACKS, CAP 2 CAPSULES WITH SNACKS Calcium Acetate (Phoslo 667 Mg) 667 Mg Cap 2001 MG PO WM, CAP 3 CAPSULES WITH SNACKS Calcium Carbonate (Tums) 500 Mg Chew 1500 MG PO HS Escitalopram Oxalate (Lexapro) 20 Mg Tab 20 MG PO QAM, TAB Famotidine (Pepcid) 40 Mg Tab 40 MG PO QAM, TAB Lisinopril (Zestril) 20 Mg Tab 20 MG PO HS, TAB Mirtazapine (Remeron) 30 Mg Tab 30 MG PO HS Trazodone Hcl (Trazodone) 50 Mg Tab 50 MG PO HS, TAB Admission Information HPI (per Admitting provider): 31 YO female followed by Dr Aldridge for Family Medicine and Dr. Jo for Nephrology. 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 Currently on hemodialysis 3 times a week. Missed her hemodialysis treated 2 days prior to admission. Over past 24 hours has developed progressive dyspnea and midchest pressure. No palpitations. No edema. Mild pharyngitis a few days ago. No fever or cough. . Physical Exam (per Admitting): General Appearance: WD/WN, + mild distress Head: normocephalic, atraumatic Eyes: normal inspection, PERRL, EOMI, sclerae normal (conjunctivae pale) ENT: normal ENT inspection, TMs normal, pharynx normal Neck: supple, no adenopathy, thyroid normal, trachea midline, + JVD Respiratory/Chest: no respiratory distress, no accessory muscle use, + rales (bibasilar) Cardiovascular: regular rate, rhythm, no edema, no murmur, + gallop/S4, + pertinent finding (+ JVD) Abdomen/GI: normal bowel sounds, non tender, soft, no organomegaly, no pulsatile mass Extremities/Musculoskelatal: normal inspection, no calf tenderness, normal capillary refill, no pedal edema, + pertinent finding (AV fistula LUE) 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 Hospital Course DYSPNEA chest pain Secondary to pulmonary edema +/- hypertensive urgency. missed HD received dialysis sob improved . Chest pain mild elevation of troponin echo trivial pericardial effusion otherwise unremarkable possible pericarditis received steroid and colchicine improved d/johnny on colchicine 0.6 mg on Mondays and Fridays after dialysis for 4 weeks HYPERTENSIVE URGENCY mostlikely secondary to missed dialysis treatment and fluid overload. Topical nitrates applied in ED. currently on IV labetalol PRN. on lisinopril. improved added coreg f/u with PCP CKD V ON HEMODIALYSIS K 5.1. Consulted Nephrology for HD management. Consult Vascular Surgery- and hemodialysis cath removed DM TYPE II Well-controlled. Hgb A1C 4.0 on 11/13/16. No longer needing insulin or other treatment. will Follow. DEPRESSION on trazodone and escitalopram. Discharged home Total time spent on discharge = 35MINUTES This includes examination of the patient, discharge planning, medication reconciliation, and communication with other providers. Discharge Instructions Discharge Instructions Date of Service Nov 21, 2016. Admission Reason for Admission: Chest Pain, Ckd Stage V Requiring Chronic Dialysis Discharge Discharge Diagnosis / Problem: SOB , VOLUME OVERLOAD, PERICARDITIS Discharge Goals Goal(s): Decrease discomfort, Improve function Activity Recommendations Activity Limitations: resume your previous activity . Instructions / Follow-Up Instructions / Follow-Up FOLLOWUP WITH FAMILY DOCTOR ON November AT 11:10AM FOLLOWUP WITH NEPHROLOGY SCHEDULED. NEW MEDICATION: COREG 3.125MG PO TWICE DAILY( FOR BLOOD PRESSURE). COLCHICINE 0.6MG PO ONE TABLET ON MONDAYS AND FRIDAYS AFTER DIALYSIS FOR 4 WEEKS. Current Hospital Diet Patient's current hospital diet: Renal Diet, Diabetes Type 1 Diet Discharge Diet Recommended Diet: Renal Diet Procedures Procedures Performed: Removal Of Perm Catheter Modereate conscious sedation ([id number]) Pending Studies Studies pending at discharge: no Laboratory Results Hemoglobin A1c Test 08/24/16 20:00 Range/Units Estimated Average Glucose 123 mg/dl Hemoglobin A1c 5.9 H 4.5-5.6 % Medical Emergencies . Who to Call and When: Medical Emergencies: If at any time you feel your situation is an emergency, please call 911 immediately. . Non-Emergent Contact Non-Emergency issues call your: Primary Care Provider . . "Provider Documentation" section prepared by Daquan Morgan. VTE Core Measure Inpt VTE Proph given/why not?: Unfractionated heparin SQ
[2016-12-16] MEDS ORDERED: FAMO40TA6 PO (12:28)
[2016-12-16] MEDS ORDERED: CALC500C3 PO (12:29)
[2016-12-16] MEDS ORDERED: CALC667C4 PO (19:46)
[2017-01-01] MEDS ORDERED: FAMO40TA6 PO (21:28)
[2017-01-25] MEDS ORDERED: CRG625 PO (11:09)
[2017-02-06] MEDS ORDERED: LISI40TA PO (07:33)
[2017-02-12] MEDS ORDERED: AMOX875T PO (12:45)
[2017-02-14] MEDS ORDERED: DOXY100C76 PO (15:33)
[2017-02-21] MEDS ORDERED: OXYC-57 PO (15:28)
[2017-02-28] MEDS ORDERED: AMLO-114 PO (08:43)
[2017-03-06] MEDS ORDERED: CARV3.122 PO (10:28)
[2017-03-08] MEDS ORDERED: ZFRODT4HP PO (15:53)
[2017-03-20] MEDS ORDERED: DOXY100T PO (14:35)
[2017-03-20] MEDS ORDERED: TOBR0.3S4 OPL (14:35)
[2017-04-24] MEDS ORDERED: CMD/25 PO (12:00)
[2017-04-26] MEDS ORDERED: CMD3 PO (16:37)
[2017-04-26] MEDS ORDERED: LISI20TA3 PO (16:37)
[2017-05-15] MEDS ORDERED: VNTHFA/IN INH (12:28)
[2017-05-15] MEDS ORDERED: LISI-725 PO (13:43)
[2017-05-15] MEDS ORDERED: CALC500C3 PO (13:50)
[2017-05-15] MEDS ORDERED: CRG125 PO (15:17)
[2017-05-15] MEDS ORDERED: NRV/5 PO (15:17)
[2017-05-15] MEDS ORDERED: BENZ100C7 PO (15:22)
[2017-05-15] MEDS ORDERED: FLUT0.15 NAE (15:33)
[2017-05-15] MEDS ORDERED: CALC0.5C PO (18:14)
[2017-05-15] MEDS ORDERED: MIRT30TA3 PO (19:24)
[2017-05-15] MEDS ORDERED: CALC667C4 PO ×2 (19:56→21:12)
[2017-05-15] MEDS ORDERED: TRAZ50TA35 PO (19:56)
[2017-05-15] MEDS ORDERED: LXP/20 PO (21:08)
[2017-05-15] MEDS ORDERED: FAMO40TA6 PO (23:12)
[2017-05-17] MEDS ORDERED: CRG25 PO (14:53)
[2017-05-21] MEDS ORDERED: APR25 PO (00:24)
[2017-05-21] MEDS ORDERED: APR50 PO (15:28)
[2017-05-21] MEDS ORDERED: ATV1 PO (15:28)
[2017-05-21] MEDS ORDERED: ativan PO (16:06)
[2017-06-11] MEDS ORDERED: LORA-741 PO (07:51)
[2017-06-11] MEDS ORDERED: VORT1TAB PO (07:51)
== END 2016-11-21 18:09 | disposition home or self-care (01) | DRG 313 ==
LOC: ENRESERVDT → ENRESERVTM → C.EDB 18:27 → C.2T 22:08
PROVIDERS: ADMIT Hospitalist; ATTEND Internal Medicine
PROC: 0JPT3XZ Removal of Tunneled Vascular Access Device from Trunk Subcutaneous Tissue and Fascia, Percutaneous Approach (ICD-10-PCS; principal; 2016-11-20 08:00)
DX: R07.9 Chest pain, unspecified (principal); N18.6 End stage renal disease; I12.0 Hypertensive chronic kidney disease with stage 5 chronic kidney disease or end stage renal disease; Z94.0 Kidney transplant status; J81.1 Chronic pulmonary edema; I31.3 Pericardial effusion (noninflammatory); E11.22 Type 2 diabetes mellitus with diabetic chronic kidney disease; F32.9 Major depressive disorder, single episode, unspecified; Z99.2 Dependence on renal dialysis; Z87.891 Personal history of nicotine dependence; Z82.49 Family history of ischemic heart disease and other diseases of the circulatory system; D63.1 Anemia in chronic kidney disease; E66.9 Obesity, unspecified

== ENCOUNTER 2016-12-02 20:38 | Emergency (ER) | payer OTHER ==
[~2016-12-02] VITALS: Ht 167.6 cm; Wt 87.8 kg
[~2016-12-02 20:38] MED LIST changes: -BENZ100C18 PO; +CLC6 PO; +CRG3125 PO; -ESCI10TA17 PO; +ESCI1TAB10 PO; +LISI-725 PO; -LSN20 PO; -MYCO250C7 PO; -TRAZ50TA35 PO
[2016-12-02 20:41] VITALS: TEMP 37; Ht 167.6 cm; Wt 87.8 kg
[2016-12-02] MEDS ORDERED: HYDROmorphone INJ 1 MG/ML SYR IV STA (21:01)
--- NOTE | 2016-12-02 21:04 | EMERGENCY ROOM VISIT NOTE ---
History Report prepared by Katia: Javad Forbes Under the Supervision of: Dr. Tremaine Allred M.D. First contact with patient: 20:50 Chief Complaint: ARM PAIN Stated Complaint: LEFT ARM PAIN /SWELLING History of Present Illness The patient is a 31 year old female who presents to the Emergency Room with complaints of left arm pain that began yesterday. The patient rates her current pain a 7/10 in severity. When she woke up this morning, it was significantly worse. The pain and swelling is located by the fistula in her left arm. She received this fistula due to her dialysis. This is completely abnormal for the patient. She denies any fevers, loss of consciousness, or any other abnormal symptoms at this time. Source of History: patient Onset: last night Position: arm (left) Symptom Intensity: 7/10 Quality: ache Timing: worsening Associated Symptoms: No LOC, No SOB, No abdominal pain, No diarrhea, No fevers, No headache, No nausea, No numbness, No urinary symptoms, No vomiting, No weakness Review of Systems See HPI for pertinent positives & negatives. A total of 10 systems reviewed and were otherwise negative. Past Medical & Surgical Medical Problems: (1) CKD (chronic kidney disease) stage V requiring chronic dialysis (2) DM2 (diabetes mellitus, type 2) (3) Focal segmental glomerulosclerosis (4) HTN (hypertension) (5) Migraine (6) Renal failure Surgical Problems: (1) H/O knee surgery (2) H/O tubal ligation (3) H/O: (4) Kidney transplant status, living related donor Social History Problems: (1) Kidney transplanted Family History Crohn's disease FATHER Diabetes mellitus MOTHER Hypertension SISTER Social History Smoking Status: Current Every Day Smoker Alcohol Use: none Drug Use: none Marital Status: in relationship Housing Status: lives with family, lives with significant other Occupation Status: disabled Current/Historical Medications Scheduled Calcium Acetate (Phoslo 667 Mg), 1,334 MG PO WITH SNACKS Calcium Acetate (Phoslo 667 Mg), 1,334 MG PO BEFORE MEALS Calcium Acetate (Phoslo 667 Mg), 1,334 MG PO AFTER MEALS Calcium Carbonate (Tums), 1,500 MG PO HS Carvedilol (Coreg), 3.125 MG PO BID Colchicine (Colchicine), 0.3 MG PO 2XWK Escitalopram Oxalate (Escitalopram Oxalate), 20 MG PO QAM Famotidine (Pepcid), 40 MG PO QAM Lisinopril (Lisinopril), 40 MG PO HS Mirtazapine (Remeron), 30 MG PO HS Sulfa/Trimethoprim (Bactrim Ds 800MG/160MG), 1 TAB PO BID Trazodone Hcl (Trazodone), 50 MG PO HS Scheduled PRN Albuterol Hfa (Ventolin Hfa), 2 PUFFS INH QID PRN for Allergy Symptoms Oxycodone Immediate Rel Tab (Roxicodone Ir), 1-2 TAB PO Q4H PRN for Severe Pain Allergies Coded Allergies: Cefaclor (Verified Allergy, Unknown, Rash, 10/03/16) Reported by PT. Physical Exam Vital Signs Date Time Temp Pulse Resp B/P Pulse Ox O2 Delivery O2 Flow Rate FiO2 12/03/16 00:01 85 18 191/131 99 Room Air 12/02/16 22:55 89 180/128 100 Room Air 12/02/16 20:41 37.0 97 18 180/123 93 Physical Exam GENERAL: Patient is uncomfortable appearing and in mild acute distress. HEENT: No acute trauma, normocephalic atraumatic, mucous membranes moist, no nasal congestion, no scleral icterus. NECK: No stridor, no adenopathy, no meningismus, trachea is midline. LUNGS: No dyspnea. Clear to auscultation and equal bilaterally. No wheeze, no rhonchi. HEART: Regular rate and rhythm. No murmurs, rubs, gallops appreciated. ABDOMEN: Soft, nontender, bowel sounds positive, no masses appreciated, no peritonitis. BACK: No midline tenderness, no CVA tenderness EXTREMITIES: Left upper arm fistula with good thrill. However, there is radiation of this thrill to the back of the left arm. Moderate amount of swelling to the left triceps and pain with ROM of the elbow. No erythema or significantly increased warmth to the area. NEUROLOGIC: Alert and oriented, no acute motor or sensory deficits, no focal weakness, cranial nerves grossly intact. SKIN: No rash, no jaundice, no diaphoresis. Medical Decision & Procedures ER Provider Diagnostic Interpretation: Radiology results are stated below per my review and radiologist interpretation: LEFT UPPER EXTREMITY VENOUS DOPPLER HISTORY: swelling left upper arm post dialysis with fistula COMPARISON STUDY: None. FINDINGS: The left internal jugular vein is patent. There is normal flow within the left subclavian vein. There is normal flow and compressibility within the left axillary, basilic, brachial, radial, ulnar, and visualized cephalic veins. IMPRESSION: No DVT within the left upper extremity. Electronically signed by: Jose Jenkins M.D. 12/02/2016 10:43 PM Dictated Date/Time: 12/02/2016 10:42 PM DUPLEX HEMODIALYSIS ACCESS, left upper arm Doppler study CLINICAL HISTORY: Evaluate left arm pain and swelling. COMPARISON STUDY: None. FINDINGS: Within the distal left upper arm posteriorly there is an area of increased echogenicity seen within the subcutaneous fat and subcutaneous edema. No loculated fluid collections. Focal areas of stenosis at the left upper extremity AV fistula identified on the arterial side. These measure 759 cm/s at 535 cm/s. No evidence for occlusion. There is also evidence for a nonfunctioning fistula within the left upper arm. IMPRESSION: 1. Area of increased echogenicity within the subcutaneous fat as well as edema within the distal left upper arm posteriorly. This is favors a cellulitis. No loculated fluid collections to suggest an abscess. 2. There are 2 focal areas of elevated velocities seen along the arterial side of the AV fistula. These are consistent with areas of stenosis. No occlusion identified. Electronically signed by: Jose Jenkins M.D. 12/02/2016 10:47 PM Dictated Date/Time: 12/02/2016 10:43 PM Laboratory Results 12/02/16 22:47 Red Blood Count 2.76, Mean Corpuscular Volume 96.4, Mean Corpuscular Hemoglobin 31.5, Mean Corpuscular Hemoglobin Concent 32.7, Mean Platelet Volume 9.7, Neutrophils (%) (Auto) 65.3, Lymphocytes (%) (Auto) 22.9, Monocytes (%) (Auto) 5.7, Eosinophils (%) (Auto) 5.9, Basophils (%) (Auto) 0.2, Neutrophils # (Auto) 3.41, Lymphocytes # (Auto) 1.20, Monocytes # (Auto) 0.30, Eosinophils # (Auto) 0.31, Basophils # (Auto) 0.01 12/02/16 22:47 Test 12/02/16 22:47 White Blood Count 5.23 K/uL (4.8-10.8) Red Blood Count 2.76 M/uL (4.2-5.4) Hemoglobin 8.7 g/dL (12.0-16.0) Hematocrit 26.6 % (37-47) Mean Corpuscular Volume 96.4 fL (80-100) Mean Corpuscular Hemoglobin 31.5 pg (25-34) Mean Corpuscular Hemoglobin Concent 32.7 g/dl (32-36) Platelet Count 172 K/uL (130-400) Mean Platelet Volume 9.7 fL (7.4-10.4) Neutrophils (%) (Auto) 65.3 % Lymphocytes (%) (Auto) 22.9 % Monocytes (%) (Auto) 5.7 % Eosinophils (%) (Auto) 5.9 % Basophils (%) (Auto) 0.2 % Neutrophils # (Auto) 3.41 K/uL (1.4-6.5) Lymphocytes # (Auto) 1.20 K/uL (1.2-3.4) Monocytes # (Auto) 0.30 K/uL (0.11-0.59) Eosinophils # (Auto) 0.31 K/uL (0-0.5) Basophils # (Auto) 0.01 K/uL (0-0.2) RDW Standard Deviation 51.8 fL (36.4-46.3) RDW Coefficient of Variation 15.0 % (11.5-14.5) Immature Granulocyte % (Auto) 0.0 % Immature Granulocyte # (Auto) 0.00 K/uL (0.00-0.02) Polychromasia 1+ Anisocytosis PRESENT Prothrombin Time 10.9 SECONDS (9.0-12.0) Prothromb Time International Ratio 1.0 (0.9-1.1) Activated Partial Thromboplast Time 25.3 SECONDS (21.0-31.0) Partial Thromboplastin Ratio 1.0 Anion Gap 15.0 mmol/L (3-11) Est Creatinine Clear Calc Drug Dose 9.1 ml/min Estimated GFR () 5.4 Estimated GFR (Non- 4.6 BUN/Creatinine Ratio 7.4 (10-20) Calcium Level 7.5 mg/dl (8.5-10.1) Laboratory results as reviewed by me. Medications Administered Medications (Trade) Dose Ordered Sig/Sachin Route Start Time Stop Time Status Last Admin Dose Admin Hydromorphone HCl (Dilaudid Inj) 1 mg NOW STAT IV 12/02/16 21:01 12/02/16 21:02 DC 12/02/16 22:53 1 MG Trimethoprim/ Sulfamethoxazole (Septra Ds 800/ 160MG Tab) 1 tab NOW ONCE PO 12/02/16 23:30 12/02/16 23:31 DC 12/03/16 00:02 1 TAB Oxycodone HCl (Roxicodone Immediate Rel 5MG Home Pack) 1 homepack UD ONCE PO 12/02/16 23:30 12/02/16 23:31 DC 12/03/16 00:02 1 HOMEPACK ED Course 2049: The patient was evaluated in room B4. A complete history and physical exam was performed. 2100: Ordered Dilaudid Inj 1 mg IV 2105: I spoke with Dr. Claudio - Vascular Surgery. They requested an ultrasound of the graft and the venous system. 2329: Ordered Oxycodone HCl 1 homepack PO, Trimethoprim/ Sulfamethoxazole 1 tab PO 2330: I spoke with Dr Claudio again at this time. They believe that outpatient antibiotic therapy is reasonable. 0: Reevaluated the patient. Discussed results and discharge instructions: She verbalized understanding and agreement. The patient is ready for discharge. Medical Decision Differential: DVT, Arterial Occlusion, Cellulitis, Abscess, Bleeding, Pseudoaneurysm, Trauma, Lymphedema, Idiopathic, Trauma, amongst other pathologies entertained. 31 yr old female with left ac av fistula placed 4 months ago arrives for 1 day of swelling laterally with pain and warmth. Some increased erythema while here. no fever no wbc elevation no vomiting no tachycardia. Patient feeling much better after some pain mediations. US without acute fistula issue and does show evidence of lateral cellulitis. Discussed with vascular who feels outpatient abx reasonable. Patient comfortable with this plan. Agrees to return if worsening or other concerns. Will follow up with vascular as outpatient. Consults Time Called: 2100 Consulting Physician: Dr. Claudio - Vascular Surgery Returned Call: [phone] We discussed the patient's case. They requested further ultrasounds. Impression Primary Impression: Cellulitis of left upper extremity Scribe Attestation The scribe's documentation has been prepared under my direction and personally reviewed by me in its entirety. I confirm that the note above accurately reflects all work, treatment, procedures, and medical decision making performed by me. Departure Information Dispostion Home / Self-Care Prescriptions Oxycodone Immediate Rel Tab (ROXICODONE IR) 5 Mg Tab 1-2 TAB PO Q4H Y for Severe Pain, #10 TAB Prov: Tremaine Allred M.D. 12/02/16 Sulfa/Trimethoprim (Bactrim Ds 800MG/160MG) Tab 1 TAB PO BID, #14 TAB Prov: Tremaine Allred M.D. 12/02/16 Referrals Adolph Aldridge M.D. (PCP) Forms HOME CARE DOCUMENTATION FORM, IMPORTANT VISIT INFORMATION Patient Instructions Cellulitis - [facility], My [facility] Additional Instructions You have received a narcotic pain medication prescription. These medications may cause drowsiness and should not be used with other sedative medications. Do not drive, drink alcohol, perform dangerous activities, nor make important decisions after taking these medications. lobsterman use or inappropriate use may lead to addiction.
--- NOTE | 2016-12-02 22:45 | DIAGNOSTIC IMAGING REPORT ---
LEFT UPPER EXTREMITY VENOUS DOPPLER HISTORY: swelling left upper arm post dialysis with fistula COMPARISON STUDY: None. FINDINGS: The left internal jugular vein is patent. There is normal flow within the left subclavian vein. There is normal flow and compressibility within the left axillary, basilic, brachial, radial, ulnar, and visualized cephalic veins. IMPRESSION: No DVT within the left upper extremity. Electronically signed by: Jose Jenkins M.D. 12/02/2016 10:43 PM Dictated Date/Time: 12/02/2016 10:42 PM
--- NOTE | 2016-12-02 22:49 | DIAGNOSTIC IMAGING REPORT ---
DUPLEX HEMODIALYSIS ACCESS, left upper arm Doppler study CLINICAL HISTORY: Evaluate left arm pain and swelling. COMPARISON STUDY: None. FINDINGS: Within the distal left upper arm posteriorly there is an area of increased echogenicity seen within the subcutaneous fat and subcutaneous edema. No loculated fluid collections. Focal areas of stenosis at the left upper extremity AV fistula identified on the arterial side. These measure 759 cm/s at 535 cm/s. No evidence for occlusion. There is also evidence for a nonfunctioning fistula within the left upper arm. IMPRESSION: 1. Area of increased echogenicity within the subcutaneous fat as well as edema within the distal left upper arm posteriorly. This is favors a cellulitis. No loculated fluid collections to suggest an abscess. 2. There are 2 focal areas of elevated velocities seen along the arterial side of the AV fistula. These are consistent with areas of stenosis. No occlusion identified. Electronically signed by: Jose Jenkins M.D. 12/02/2016 10:47 PM Dictated Date/Time: 12/02/2016 10:43 PM
[2016-12-02 22:55] LABS: BASO % 0.2 %; BASO ABS # 0.01 K/uL (0-0.2); EOS % 5.9 %; HEMATOCRIT 26.6 % (37-47); LYMPH % 22.9 %; MEAN CELL VOLUME 96.4 fL (80-100); MEAN CORPUSCULAR HEMOGLOBIN 31.5 pg (25-34); MEAN CORPUSCULAR HGB CONC 32.7 g/dl (32-36); MEAN PLATELET VOLUME 9.7 fL (7.4-10.4); MONO % 5.7 %; NEUT % 65.3 %; PLATELET COUNT 172 K/uL (130-400); RED BLOOD COUNT 2.76 M/uL (4.2-5.4); WHITE BLOOD COUNT 5.23 K/uL (4.8-10.8)
[2016-12-02 23:06] LABS: PROTHROMBIN TIME (PATIENT) 10.9 SECONDS (9.0-12.0)
[2016-12-02 23:28] LABS: ANISOCYTOSIS PRESENT; COMPLETE YES; POLYCHROMASIA 1+
[2016-12-02] MEDS ORDERED: OXYCODONE IR HOME PACK PO ONE (23:30)
[2016-12-02] MEDS ORDERED: SULFAMETHOXAZOLE/TRIMETHOPRIM DS 800/160MG TAB PO ONE (23:30)
[2016-12-02] MEDS ORDERED: OXYC1TAB3 PO (23:32)
[2016-12-02] MEDS ORDERED: SULF800T23 PO (23:32)
[2016-12-02 23:36] LABS: BUN/CREATININE RATIO 7.4 (10-20); CALCIUM 7.5 mg/dl (8.5-10.1)
[2016-12-03 00:01] VITALS: BP 191/131; PULSE 85; O2SAT 99
[2016-12-16] MEDS ORDERED: FAMO40TA6 PO (12:28)
[2016-12-16] MEDS ORDERED: CALC500C3 PO (12:29)
[2016-12-16] MEDS ORDERED: CALC667C4 PO (19:46)
[2017-01-25] MEDS ORDERED: CRG625 PO (11:09)
[2017-02-06] MEDS ORDERED: LISI40TA PO (07:33)
[2017-02-12] MEDS ORDERED: AMOX875T PO (12:45)
[2017-02-14] MEDS ORDERED: DOXY100C76 PO (15:33)
[2017-02-21] MEDS ORDERED: OXYC-57 PO (15:28)
[2017-02-28] MEDS ORDERED: AMLO-114 PO (08:43)
[2017-03-06] MEDS ORDERED: CARV3.122 PO (10:28)
[2017-03-08] MEDS ORDERED: ZFRODT4HP PO (15:53)
[2017-03-20] MEDS ORDERED: DOXY100T PO (14:35)
[2017-03-20] MEDS ORDERED: TOBR0.3S4 OPL (14:35)
[2017-04-24] MEDS ORDERED: CMD/25 PO (12:00)
[2017-04-26] MEDS ORDERED: LISI20TA3 PO (16:37)
[2017-04-26] MEDS ORDERED: CMD3 PO (16:37)
[2017-05-15] MEDS ORDERED: VNTHFA/IN INH (12:28)
[2017-05-15] MEDS ORDERED: LISI-725 PO (13:43)
[2017-05-15] MEDS ORDERED: CALC500C3 PO (13:50)
[2017-05-15] MEDS ORDERED: NRV/5 PO (15:17)
[2017-05-15] MEDS ORDERED: CRG125 PO (15:17)
[2017-05-15] MEDS ORDERED: BENZ100C7 PO (15:22)
[2017-05-15] MEDS ORDERED: FLUT0.15 NAE (15:33)
[2017-05-15] MEDS ORDERED: CALC0.5C PO (18:14)
[2017-05-15] MEDS ORDERED: MIRT30TA3 PO (19:24)
[2017-05-15] MEDS ORDERED: TRAZ50TA35 PO (19:56)
[2017-05-15] MEDS ORDERED: CALC667C4 PO ×2 (19:56→21:12)
[2017-05-15] MEDS ORDERED: LXP/20 PO (21:08)
[2017-05-15] MEDS ORDERED: FAMO40TA6 PO (23:12)
[2017-05-17] MEDS ORDERED: CRG25 PO (14:53)
[2017-05-21] MEDS ORDERED: APR25 PO (00:24)
[2017-05-21] MEDS ORDERED: ATV1 PO (15:28)
[2017-05-21] MEDS ORDERED: APR50 PO (15:28)
[2017-05-21] MEDS ORDERED: ativan PO (16:06)
[2017-06-11] MEDS ORDERED: VORT1TAB PO (07:51)
[2017-06-11] MEDS ORDERED: LORA-741 PO (07:51)
== END 2016-12-03 00:06 | disposition home or self-care (01) ==
LOC: C.EDB 20:39
DX: L03.114 Cellulitis of left upper limb (principal); N18.4 Chronic kidney disease, stage 4 (severe); E11.9 Type 2 diabetes mellitus without complications; I10 Essential (primary) hypertension; N26.9 Renal sclerosis, unspecified; Z83.3 Family history of diabetes mellitus; Z82.49 Family history of ischemic heart disease and other diseases of the circulatory system; F17.200 Nicotine dependence, unspecified, uncomplicated

== ENCOUNTER 2016-12-16 20:04 | Inpatient (IN) | payer OTHER ==
[~2016-12-16] VITALS: Ht 167.6 cm; Wt 88.7 kg
[~2016-12-16 20:04] MED LIST changes: +CALC500C3 PO; +CALC667C4 PO; -CLC6 PO; -CRG3125 PO; -ESCI1TAB10 PO; +FAMO40TA6 PO; -LISI-725 PO; +OXYC1TAB3 PO; +SULF800T23 PO
[2016-12-16] MEDS ORDERED: MoRPHine SULFATE 4 MG/ML 1 ML CARP\\VIAL IV STA ×2 (20:54→22:07)
[2016-12-16] MEDS ORDERED: ONDANSETRON INJ 2 MG/ML 2 ML VIAL IV STA (20:54)
--- NOTE | 2016-12-16 20:56 | EMERGENCY ROOM VISIT NOTE ---
History Report prepared by Katia: Juan M Pelletier Under the Supervision of: Dr. Andrea Diaz M.D. First contact with patient: 20:35 Chief Complaint: BACK PAIN Stated Complaint: CRAMPING AND PAIN IN PELVIS GOING UP BACK History of Present Illness The patient is a 31 year old female who presents to the Emergency Room with complaints of persistent pelvic cramping that started this morning. The pain radiates to her upper abdomen / rib area. The patient recently had back pain which did not feel renal. She also started having diarrhea. The patient denies fevers, chills, or urinary symptoms. She had a headache yesterday which resolved. The patient has a history of Stage IV Renal Failure. She had a transplant and stopped taking her anti-rejection medications at one point. The patient now receives dialysis every M W . She missed her Saturday dialysis treatment two days ago. She follows up with Dr. Jo. The patient still produces urine. She denies history of kidney stones. She is a controlled diabetic. LNMP was two weeks ago. She denies the possibility of secondary to tubal ligation. Source of History: patient, treating provider Onset: this morning Position: abdomen (pelvic) Quality: cramping Timing: other (persistent) Associated Symptoms: + back pain, + diarrhea, No chills, No fevers, No urinary symptoms Review of Systems See HPI for pertinent positives & negatives. A total of 10 systems reviewed and were otherwise negative. Past Medical & Surgical Medical Problems: (1) CKD (chronic kidney disease) stage V requiring chronic dialysis (2) DM2 (diabetes mellitus, type 2) (3) Focal segmental glomerulosclerosis (4) HTN (hypertension) (5) Migraine (6) Renal failure Surgical Problems: (1) H/O knee surgery (2) H/O tubal ligation (3) H/O: (4) Kidney transplant status, living related donor Social History Problems: (1) Kidney transplanted Old medical records were reviewed. Nurse's notes were reviewed and I agree with. Family History Crohn's disease FATHER Diabetes mellitus MOTHER Hypertension SISTER Social History Smoking Status: Current Every Day Smoker Alcohol Use: none Drug Use: none Marital Status: in relationship Housing Status: lives with family, lives with significant other Occupation Status: disabled Current/Historical Medications Scheduled Calcium Acetate (Phoslo 667 Mg), 1,334 MG PO WITH SNACKS Calcium Acetate (Phoslo 667 Mg), 1,334 MG PO BEFORE MEALS Calcium Acetate (Phoslo 667 Mg), 1,334 MG PO AFTER MEALS Calcium Carbonate (Tums), 1,500 MG PO HS Carvedilol (Coreg), 3.125 MG PO BID Colchicine (Colchicine), 0.3 MG PO 2XWK Escitalopram Oxalate (Escitalopram Oxalate), 20 MG PO QAM Famotidine (Pepcid), 40 MG PO QAM Lisinopril (Lisinopril), 40 MG PO HS Mirtazapine (Remeron), 30 MG PO HS Trazodone Hcl (Trazodone), 50 MG PO HS Scheduled PRN Albuterol Hfa (Ventolin Hfa), 2 PUFFS INH QID PRN for Allergy Symptoms Allergies Coded Allergies: Cefaclor (Verified Allergy, Unknown, Rash, 10/03/16) Reported by PT. Physical Exam Vital Signs Date Time Temp Pulse Resp B/P Pulse Ox O2 Delivery O2 Flow Rate FiO2 12/16/16 22:17 79 18 162/107 97 Room Air 12/16/16 20:13 36.7 87 18 179/99 99 Room Air Physical Exam General: Non ill appearing young female in no acute distress, breathing comfortably on room air. Normal speech HEENT: Normal cephalic atraumatic. Pupils are equal round and reactive to light. Extraocular movements are intact. Oropharynx is pink with moist mucous membranes. No swelling of the mouth lips or tongue. Neck: Supple with a midline trachea. No meningeal signs or stiffness, no JVD or bruits. No Stridor. Chest: Clear to auscultation bilaterally. No wheezes or rhonchi. No increased work of breathing. Heart: regular rate and rhythm. Abdomen: Soft, minimally diffusely tender, nondistended without rebound guarding or rigidity. Extremities: No cyanosis clubbing or edema. No calf tenderness or assymetry. Dialysis fistula left arm not red or warm. Spine/Back. Non tender to palpation. No CVA tenderness Skin: Good turgor without rashes. Neurologic exam: Cranial nerves two through 12 are intact. Motor and sensation are intact and symmetrical throughout. Medical Decision & Procedures ER Provider Diagnostic Interpretation: Radiology results as stated below per my review and radiologist interpretation: CHEST ONE VIEW PORTABLE HISTORY: Atypical CHEST PAIN COMPARISON: Chest 11/18/2016. FINDINGS: The heart remains enlarged. Diffuse interstitial thickening is slightly improved. This is consistent with mild pulmonary edema. No pleural effusions. No pneumothorax. IMPRESSION: Stable cardiomegaly with improvement in the mild interstitial edema. Electronically signed by: Jose Jenkins M.D. 12/16/2016 10:02 PM Dictated Date/Time: 12/16/2016 10:00 PM ABDOMEN AND PELVIS CT WITHOUT CONTRAST CT DOSE: 933.26 mGy.cm HISTORY: Epigastric pain. TECHNIQUE: Multiaxial CT images of the abdomen and pelvis were performed without contrast. COMPARISON STUDY: Abdomen and pelvis CT 06/07/2016. FINDINGS: Mild interlobular septal thickening at the lung bases consistent with mild pulmonary edema. The heart is mildly enlarged. Trace bilateral pleural effusions. No pneumoperitoneum. No pneumatosis. No suspicious lytic or blastic osseous lesions. The unenhanced liver, spleen, adrenal glands, and pancreas are unremarkable. Atrophic [place] kidneys are again noted. Mild central periportal edema. There is edema and fluid surrounding the thickened gallbladder. This is new from the prior study. No retroperitoneal lymphadenopathy. Trace pelvic free fluid. The uterus unremarkable. Normal right ovary. A 2.5 cm hypodense lesion within the left ovary which likely represents a cyst. Suboptimal evaluation for bowel pathology due to the lack of intravenous and oral contrast. However, there is no definite bowel wall thickening or obstruction. Colonic diverticulosis. Tiny fat-containing umbilical hernia, unchanged. Partially calcified low density structure within the right lower quadrant likely represents the transplant kidney. This measures 4.2 cm. This is not significantly changed. Normal appendix. IMPRESSION: 1. Abnormal appearing gallbladder which appears to demonstrate a diffusely thickened/edematous wall and associated adjacent pericholecystic fluid/fat stranding. This also mild central periportal edema. Therefore, this could be due to cardiac congestion, underlying hepatic pathology, or acute cholecystitis. Clinical correlation recommended. 2. Pulmonary edema, cardiomegaly, and trace bilateral pleural effusions. 3. No definite bowel wall thickening or obstruction. 4. Normal appendix. 5. No change in the right lower quadrant renal transplant. Atrophic [place] kidneys are also identified. 6. Colonic diverticulosis. Electronically signed by: Jose Jenkins M.D. 12/16/2016 10:55 PM Dictated Date/Time: 12/16/2016 10:47 PM CHEST ONE VIEW PORTABLE HISTORY: Atypical CHEST PAIN COMPARISON: Chest 11/18/2016. FINDINGS: The heart remains enlarged. Diffuse interstitial thickening is slightly improved. This is consistent with mild pulmonary edema. No pleural effusions. No pneumothorax. IMPRESSION: Stable cardiomegaly with improvement in the mild interstitial edema. Electronically signed by: Jose Jenkins M.D. 12/16/2016 10:02 PM Dictated Date/Time: 12/16/2016 10:00 PM Laboratory Results 12/16/16 21:10 Red Blood Count 2.65, Mean Corpuscular Volume 98.5, Mean Corpuscular Hemoglobin 32.1, Mean Corpuscular Hemoglobin Concent 32.6, Mean Platelet Volume 10.3, Neutrophils (%) (Auto) 74.5, Lymphocytes (%) (Auto) 14.2, Monocytes (%) (Auto) 6.0, Eosinophils (%) (Auto) 4.0, Basophils (%) (Auto) 1.1, Neutrophils # (Auto) 4.25, Lymphocytes # (Auto) 0.81, Monocytes # (Auto) 0.34, Eosinophils # (Auto) 0.23, Basophils # (Auto) 0.06 12/16/16 21:10 Test 12/16/16 21:10 12/16/16 21:21 White Blood Count 5.70 K/uL (4.8-10.8) Red Blood Count 2.65 M/uL (4.2-5.4) Hemoglobin 8.5 g/dL (12.0-16.0) Hematocrit 26.1 % (37-47) Mean Corpuscular Volume 98.5 fL (80-100) Mean Corpuscular Hemoglobin 32.1 pg (25-34) Mean Corpuscular Hemoglobin Concent 32.6 g/dl (32-36) Platelet Count 125 K/uL (130-400) Mean Platelet Volume 10.3 fL (7.4-10.4) Neutrophils (%) (Auto) 74.5 % Lymphocytes (%) (Auto) 14.2 % Monocytes (%) (Auto) 6.0 % Eosinophils (%) (Auto) 4.0 % Basophils (%) (Auto) 1.1 % Neutrophils # (Auto) 4.25 K/uL (1.4-6.5) Lymphocytes # (Auto) 0.81 K/uL (1.2-3.4) Monocytes # (Auto) 0.34 K/uL (0.11-0.59) Eosinophils # (Auto) 0.23 K/uL (0-0.5) Basophils # (Auto) 0.06 K/uL (0-0.2) RDW Standard Deviation 58.2 fL (36.4-46.3) RDW Coefficient of Variation 16.3 % (11.5-14.5) Immature Granulocyte % (Auto) 0.2 % Immature Granulocyte # (Auto) 0.01 K/uL (0.00-0.02) Ovalocytes 1+ Est Creatinine Clear Calc Drug Dose 7.2 ml/min Estimated GFR () 3.9 Estimated GFR (Non- 3.4 BUN/Creatinine Ratio 7.7 (10-20) Calcium Level 7.5 mg/dl (8.5-10.1) Total Bilirubin 0.3 mg/dl (0.2-1) Direct Bilirubin < 0.1 mg/dl (0-0.2) Aspartate Amino Transf (AST/SGOT) 26 U/L (15-37) Alanine Aminotransferase (ALT/SGPT) 38 U/L (12-78) Alkaline Phosphatase 61 U/L (45-117) Total Protein 6.3 gm/dl (6.4-8.2) Albumin 3.1 gm/dl (3.4-5.0) Lipase 369 U/L (73-393) Human Chorionic Gonadotropin, Qual NEG (NEG) Bedside Hemoglobin 8.2 g/dl (12.0-16.0) Bedside Hematocrit 24 % (37-47) Bedside Sodium 136 mEq/L (135-144) Bedside Potassium 4.6 mEq/L (3.3-5.0) Bedside Chloride 99 mEq/L (101-112) Bedside Total CO2 20 mEq/l (24-31) Anion Gap 23.0 mmol/L (16-25) Bedside Blood Urea Nitrogen 107 mg/dl (7-18) Bedside Creatinine 11.8 mg/dl (0.6-1.3) Bedside Glucose (other) 151 mg/dl (70-99) Bedside Ionized Calcium (Shadia) 1.00 mmol/l (1.12-1.32) Laboratory studies as stated above per my review. Medications Administered Medications (Trade) Dose Ordered Sig/Sachin Route Start Time Stop Time Status Last Admin Dose Admin Ondansetron HCl (Zofran Inj) 4 mg NOW STAT IV 12/16/16 20:54 12/16/16 20:56 DC 12/16/16 21:24 4 MG Morphine Sulfate (MoRPHine SULFATE INJ) 4 mg NOW STAT IV 12/16/16 20:54 12/16/16 20:56 DC 12/16/16 21:25 4 MG Morphine Sulfate (MoRPHine SULFATE INJ) 4 mg NOW STAT IV 12/16/16 22:07 12/16/16 22:09 DC 12/16/16 22:16 4 MG Diphenhydramine HCl (Benadryl Cap) 25 mg NOW ONCE PO 12/16/16 23:30 12/16/16 23:31 DC 12/16/16 23:51 25 MG ED Course 2044: Past medical records reviewed. The patient was evaluated in room B3b, and a complete history and physical examination were performed. 2053: Morphine Sulfate 4 mg IV, Zofran 4 mg IV. 2206: Morphine Sulfate 4 mg IV. 2212: Discussed the case with Dr. Jo, Media Services Coordinator. He is comfortable with her going home. 2300: Patient's CT scan showed cholecystitis. 2310: Discussed the case [facility] Dr. Cunningham[facility] The patient will be evaluated. 2330: Benadryl 25 mg PO. Medical Decision Differential diagnosis includes infection, electrolyte or metabolic abnormality , complication related to dialysis, colitis, , UTI. This patient comes in as described above. She has a history of end-stage renal disease. She missed dialysis on Saturday. She has abdominal pain she felt like it started in her lower abdomen now it's more in the upper abdomen and into the chest and epigastric area mostly. She is tender in epigastric area. She's had no fever or chills or vomiting. She still makes urine and has no urinary symptoms. She's had no fall or trauma. No cough. IV access established and she was given morphine 4 mg IV and Zofran 4 mg IV. she did require additional morphine and was given by mouth Benadryl after she was having some itching. She says she has chronic itching related to her end-stage renal disease and had no evidence of allergic reaction. she has no elevation of her white count .she does have baseline anemia at 8.5. She was found to be baseline uremic. Potassium is not significantly elevated however. Her calcium is baseline at 7.5. I did discuss case with Dr. Jo, her manager english, prior to getting a CAT scan. He felt that the she could go home and get dialysis tomorrow as her numbers were stable and she looks well clinically. she's not in congestive heart failure ,she's not hypoxemic and her lungs are clear . this change however when I got a CAT scan to evaluate her abdominal pain. The radiologist was concerned that her gallbladder looks potentially inflamed and she may have cholecystitis. I did consult Dr. Gary to see her for likely observation. Consults Time Called: 2204 Consulting Physician: Dr. Jo, Media Services Coordinator Returned Call: [phone]: Discussed the case with Dr. Jo, Media Services Coordinator. He is comfortable with her going home. Additional Consults: Time Called: 2299 [facility] Returned Call: [phone] Additional Comments: 2309: Discussed the case with Rigo Peacock. The patient will be evaluated. Impression Primary Impression: Epigastric abdominal pain Additional Impressions: Cholecystitis ESRD (end stage renal disease) on dialysis Scribe Attestation The scribe's documentation has been prepared under my direction and personally reviewed by me in its entirety. I confirm that the note above accurately reflects all work, treatment, procedures, and medical decision making performed by me. Departure Information Dispostion Being Evaluated By Hospitalist Referrals Yohana Jo DO (PCP) Patient Instructions [facility] Problem Qualifiers
[2016-12-16] MEDS ORDERED: COLC1TAB25 PO (21:08)
[2016-12-16] MEDS ORDERED: LSN40 PO (21:08)
[2016-12-16] MEDS ORDERED: CARV3.122 PO (21:08)
[2016-12-16 21:31] LABS: HEMATOCRIT 26.1 % (37-47); MEAN CELL VOLUME 98.5 fL (80-100); MEAN CORPUSCULAR HEMOGLOBIN 32.1 pg (25-34); MEAN CORPUSCULAR HGB CONC 32.6 g/dl (32-36); MEAN PLATELET VOLUME 10.3 fL (7.4-10.4); PLATELET COUNT 125 K/uL (130-400); RED BLOOD COUNT 2.65 M/uL (4.2-5.4)
[2016-12-16 21:34] LABS: ISTAT CREATININE 11.8 mg/dl (0.6-1.3); ISTAT HEMOGLOBIN 8.2 g/dl (12.0-16.0)
[2016-12-16 21:50] LABS: PREG INTERNAL NEGATIVE QC NEG CLEAR BACKGROUND; PREG INTERNAL POSITIVE QC POS CONTROL LINE
--- NOTE | 2016-12-16 22:04 | DIAGNOSTIC IMAGING REPORT ---
CHEST ONE VIEW PORTABLE HISTORY: Atypical CHEST PAIN COMPARISON: Chest 11/18/2016. FINDINGS: The heart remains enlarged. Diffuse interstitial thickening is slightly improved. This is consistent with mild pulmonary edema. No pleural effusions. No pneumothorax. IMPRESSION: Stable cardiomegaly with improvement in the mild interstitial edema. Electronically signed by: Jose Jenkins M.D. 12/16/2016 10:02 PM Dictated Date/Time: 12/16/2016 10:00 PM
[2016-12-16 22:08] LABS: ALKALINE PHOSPHATASE 61 U/L (45-117); ALT/SGPT 38 U/L (12-78); AST/SGOT 26 U/L (15-37); BLOOD UREA NITROGEN 100 mg/dl (7-18); BUN/CREATININE RATIO 7.7 (10-20); CALCIUM 7.5 mg/dl (8.5-10.1); CARBON DIOXIDE 21 mmol/L (21-32); CHLORIDE 99 mmol/L (98-107); GLUCOSE 163 mg/dl (70-99); POTASSIUM 4.6 mmol/L (3.5-5.1); SODIUM 138 mmol/L (136-145)
[2016-12-16 22:16] LABS: BASO % 1.1 %; BASO ABS # 0.06 K/uL (0-0.2); COMPLETE YES; IG% 0.2 %; LYMPH % 14.2 %; LYMPH ABS # 0.81 K/uL (1.2-3.4); NEUT % 74.5 %; OVALOCYTES 1+
--- NOTE | 2016-12-16 22:57 | DIAGNOSTIC IMAGING REPORT ---
ABDOMEN AND PELVIS CT WITHOUT CONTRAST CT DOSE: 933.26 mGy.cm HISTORY: Epigastric pain. TECHNIQUE: Multiaxial CT images of the abdomen and pelvis were performed without contrast. COMPARISON STUDY: Abdomen and pelvis CT 06/07/2016. FINDINGS: Mild interlobular septal thickening at the lung bases consistent with mild pulmonary edema. The heart is mildly enlarged. Trace bilateral pleural effusions. No pneumoperitoneum. No pneumatosis. No suspicious lytic or blastic osseous lesions. The unenhanced liver, spleen, adrenal glands, and pancreas are unremarkable. Atrophic [place] kidneys are again noted. Mild central periportal edema. There is edema and fluid surrounding the thickened gallbladder. This is new from the prior study. No retroperitoneal lymphadenopathy. Trace pelvic free fluid. The uterus unremarkable. Normal right ovary. A 2.5 cm hypodense lesion within the left ovary which likely represents a cyst. Suboptimal evaluation for bowel pathology due to the lack of intravenous and oral contrast. However, there is no definite bowel wall thickening or obstruction. Colonic diverticulosis. Tiny fat-containing umbilical hernia, unchanged. Partially calcified low density structure within the right lower quadrant likely represents the transplant kidney. This measures 4.2 cm. This is not significantly changed. Normal appendix. IMPRESSION: 1. Abnormal appearing gallbladder which appears to demonstrate a diffusely thickened/edematous wall and associated adjacent pericholecystic fluid/fat stranding. This also mild central periportal edema. Therefore, this could be due to cardiac congestion, underlying hepatic pathology, or acute cholecystitis. Clinical correlation recommended. 2. Pulmonary edema, cardiomegaly, and trace bilateral pleural effusions. 3. No definite bowel wall thickening or obstruction. 4. Normal appendix. 5. No change in the right lower quadrant renal transplant. Atrophic [place] kidneys are also identified. 6. Colonic diverticulosis. Electronically signed by: Jose Jenkins M.D. 12/16/2016 10:55 PM Dictated Date/Time: 12/16/2016 10:47 PM
[2016-12-17] VITALS (22 sets, daily range): BP systolic 134–174; BP diastolic 73–110; PULSE 62–77; TEMP 36.7–37.3; O2SAT 94–100; Ht 167.6 cm; Wt 88.7 kg
[2016-12-17] MEDS ORDERED: HYDROmorphone INJ 0.5 MG/0.5 ML SYR IV STA (00:02)
[2016-12-17] MEDS ORDERED: HYDROmorphone INJ 0.5 MG/0.5 ML SYR ONE (00:08)
[2016-12-17] MEDS ORDERED: GLUCOSE 40% GEL 15 GM TUBE PO PRN (00:30)
[2016-12-17] MEDS ORDERED: GLUCAGON FOR INJ 1 MG VIAL SQ PRN (00:30)
[2016-12-17] MEDS ORDERED: PROMETHAZINE HCL INJ 12.5 MG in SODIUM CHLORIDE 0.9% 50ML 50 ML IV PRN (00:30)
[2016-12-17] MEDS ORDERED: ONDANSETRON INJ 2 MG/ML 2 ML VIAL IV PRN (00:30)
[2016-12-17] MEDS ORDERED: DEXTROSE 50% 50 ML SYR IV PRN (00:30)
[2016-12-17] MEDS ORDERED: LORAZEPAM 2 MG/ML 1 ML VIAL IV PRN (00:30)
[2016-12-17] MEDS ORDERED: GLUCOSE 10 TABS/TUBE PO PRN (00:30)
[2016-12-17] MEDS ORDERED: IV FLUIDS COMPLETED PRN (00:45)
[2016-12-17] MEDS ORDERED: LORATADINE 10 MG TAB PO STA (01:17)
[2016-12-17] MEDS ORDERED: AMPICILLIN/SULBACTAM SOD INJ 3,000 MG in SODIUM CHLORIDE 0.9% 100ML 100 ML IV STA (02:22)
--- NOTE | 2016-12-17 04:04 | HISTORY & PHYSICAL EXAMINATION ---
DATE OF ADMISSION: 12/17/2016 PRIMARY CARE DOCTOR: Dr. Aldridge. Hx obtained from px and records. CHIEF COMPLAINT: Abdominal pain. HISTORY OF PRESENT ILLNESS: Medical history is significant for end-stage renal disease on hemodialysis, history of FSGS sp rejected kidney transplant, HTN, DM2, diet-controlled, chronic anemia (baseline hemoglobin of 8), ongoing tobacco abuse. Recent confinement last month for pericarditis. Px discharged on steroids and colchicine course for one month. Yesterday morning, the patient woke up with left flank pain. No dysuria. After lunch, the patient noted sharp upper abdominal discomfort. No nausea, no vomiting. No fever, no chills. Worse with moving around. Intractable pain in the Emergency Room. MEDICAL HISTORY: As above. Dialysis on Saturday, Saturday and Saturday. SURGERIES: She has had kidney transplant, knee surgery, tubal ligation and section. HOME MEDICATIONS: Include; Ventolin, Coreg, PhosLo, Tums, colchicine, citalopram, Pepcid, lisinopril, Remeron and trazodone. ALLERGIES: TO CEFACLOR. FAMILY HISTORY: Gallbladder disease, IBD, diabetes and high blood pressure. PERSONAL AND SOCIAL HISTORY: A few cigarettes a daily. No chronic intake of alcoholic beverages. Currently unemployed. REVIEW OF SYSTEMS: As per HPI, all other ROS negative. PHYSICAL EXAMINATION: VITAL SIGNS: Blood pressure was noted to be 170/90, pulse rate 87, RR 18 temp 36.6 O2 sats 98 on room air. GENERAL: Noted to be obese, slightly uncomfortable, in no respiratory distress. SKIN: Sallow. HEENT: Pale palpebral conjunctivae. Dry mucosa. NECK: Short neck. LUNGS: Decreased breath sounds. HEART: Regular rate and rhythm. ABDOMEN: Dias sign EXTREMITIES: Minimal LE edema. no tenderness NEUROLOGIC: No gross focality. LABORATORIES: Hemoglobin was noted to be 8.5, hematocrit 26, white cell count 5.7, platelets 125 Sodium 138, potassium 4.6, chloride 99, CO2 21, BUN 100, creatinine 13 and glucose 150; LFTs and lipase normal. Hemoglobin A1c from October 2016 was 4. Chest x-ray; some congestion. CT of abdomen and pelvis; abnormal appearing gallbladder with adjacent pericholecystic fluid/stranding, possibly from periportal congestion versus acute cholecystitis. ASSESSMENT: 1. Abdominal pain, possible cholecystitis no sepsis. 2. Hypertension, slightly elevated secondary to pain, missed PM BP meds 3. End-stage renal disease on hemodialysis hx FSGS sp failed kidney transplant 4. chronic anemia 2 to ESRD, Hg at baseline 5. thrombocytopenia, rule out heparin induced thrombocytopenia 6. DM2, diet controlled well-controlled as of recent outpx Hg A1c. 7. Ongoing tobacco abuse. 8. Recent pericarditis. px to complete colchicine rx this week. PLAN: Observation GMF Gallbladder ultrasound. RE RUQ pain/tenderness If gallbladder ultrasound shows cholecystitis - Unasyn, Surgery consult Facilitate nighttime blood pressure medications. Analgesia HIT screen. Nephrology consult RE dialysis management. Patient counselled to stop smoking. ISS BG goal 140-180 DVT prophylaxis, SCDs. RE Thrombocytopenia. Full code. MTDD
[2016-12-17] MEDS: ACETAMINOPHEN 325 MG TAB PO PRN (05:44)
[2016-12-17 06:09] LABS: BASO % 0.3 %; BASO ABS # 0.01 K/uL (0-0.2); EOS % 4.9 %; HEMATOCRIT 26.1 % (37-47); LYMPH % 26.4 %; LYMPH ABS # 1.02 K/uL (1.2-3.4); MEAN CELL VOLUME 98.5 fL (80-100); MEAN CORPUSCULAR HEMOGLOBIN 32.5 pg (25-34); MEAN PLATELET VOLUME 10.3 fL (7.4-10.4); MONO % 5.4 %; PLATELET COUNT 116 K/uL (130-400); RED BLOOD COUNT 2.65 M/uL (4.2-5.4); WHITE BLOOD COUNT 3.86 K/uL (4.8-10.8)
[2016-12-17 06:36] LABS: COMPLETE YES; ECHINOCYTES 1+; GIANT PLATELETS 1+; OVALOCYTES 1+
--- NOTE | 2016-12-17 06:53 | DIAGNOSTIC IMAGING REPORT ---
ABDOMINAL ULTRASOUND, RIGHT UPPER QUADRANT HISTORY: Abdominal pain. COMPARISON: CT of the abdomen and pelvis December 16, 2016. FINDINGS: There is no biliary ductal dilatation. There is slight coarsening of hepatic echotexture. There is moderate gallbladder wall thickening, measuring 1.3 cm. A small amount of pericholecystic fluid is noted. No gallstones are identified. The pancreatic body is normal. The head and tail are obscured. The right kidney is atrophic and echogenic. IMPRESSION: 1. Moderate gallbladder wall thickening, a nonspecific finding. Small amount of pericholecystic fluid. No gallstones. 2. Atrophic, echogenic right kidney. 3. No biliary ductal dilatation. Electronically signed by: Sebastian Mcclain M.D. 12/17/2016 6:51 AM Dictated Date/Time: 12/17/2016 6:49 AM
[2016-12-17] MEDS ORDERED: NURSING DECISION MEDICATION ORDER SCH (07:00)
[2016-12-17] MEDS ORDERED: INSULIN ASPART 100 UNITS/ML 3 ML PEN SC SCH (07:00)
[2016-12-17 07:17] LABS: BUN/CREATININE RATIO 7.5 (10-20); CALCIUM 7.6 mg/dl (8.5-10.1); POTASSIUM 5.2 mmol/L (3.5-5.1)
[2016-12-17] MEDS ORDERED: EPOETIN ALFA 10,000 UNITS/ML VIAL IV. ONE (07:45)
[2016-12-17] MEDS ORDERED: HEPARIN SOD (PORCINE) 1000 UNIT/ML 10 ML VIAL IV SCH (07:45)
[2016-12-17] MEDS: HEPARIN SOD (PORCINE) 1000 UNIT/ML 10 ML VIAL IV SCH ×3 (07:45→09:45)
[2016-12-17] MEDS: CALCIUM ACETATE 667MG GELCAP PO SCH ×6 (08:00→18:30)
[2016-12-17 08:26] LABS: TOTAL IRON BINDING CAPACITY 221 mcg/dl (250-450)
[2016-12-17] MEDS ORDERED: EPOETIN ALFA INJ 12,000 UNITS in SYRINGE 0 ML SQ SCH (08:30)
[2016-12-17] MEDS ORDERED: CALCIUM ACETATE 667MG GELCAP PO PRN (08:30)
[2016-12-17] MEDS: ESCITALOPRAM OXALATE 20 MG TAB PO SCH (08:46)
[2016-12-17] MEDS: CARVEDILOL 3.125 MG TAB PO SCH ×2 (08:46→23:14)
[2016-12-17] MEDS: FAMOTIDINE 20 MG TAB PO SCH (08:46)
[2016-12-17] MEDS ORDERED: COLCHICINE 0.6 MG TAB PO SCH (09:00)
[2016-12-17] MEDS ORDERED: EPOETIN ALFA INJ 12,000 UNITS in SYRINGE 0 ML IV. SCH (09:00)
[2016-12-17] MEDS ORDERED: AMPICILLIN/SULBACTAM CONSULT ACTIVE PRN ×2 (09:00)
[2016-12-17] MEDS: INSULIN ASPART 100 UNITS/ML 3 ML PEN SC SCH ×2 (12:00→18:00)
[2016-12-17] MEDS: TRAMADOL HCL 50 MG TAB PO PRN (13:26)
--- NOTE | 2016-12-17 15:47 | Surgery Consultation ---
Consultation Date of Consultation: Dec 17, 2016. Attending Physician: Jesika Pascual MD Reason for Consultation: Alexandra is a 31 year-old female who presented to emergency department with complaint of RUQ abdominal pain that began Saturday morning. States its a sharp pain and comes from the mid abdomen. Never had this pain before. Pain constant. Nothing seemed to make it worse or better. 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 She denies changes in bowel habits, nausea, vomiting, fever, chills, history of jaundice, pancreatitis, or hepatitis. She missed her dialysis on Saturday. CT scan of abdomen and pelvis showed abnormal appearing gallbladder with diffuse wall edema and pericholecystic fluid/fat stranding and some periportal edema. US of the abdomen showed no gallstones, gallbladder wall thickening , and pericholecystic fluid. No leukocytosis and LFTS and total bilirubin within normal limits. Abdominal surgeries include 2 sections and kidney transplant. Other surgeries include multiple tunneled dialysis catheter insertions/removal, 3 AV fistula creation, tonsillectomy, and 2 knee surgeries. (Tami Hardy ., CASTROC) Past Medical/Surgical History Medical Problems: (1) Acute electrocardiogram changes Status: Acute (2) Altered mental status Status: Acute (3) Anemia Status: Acute (4) ARF (acute renal failure) Status: Acute (5) Cellulitis of left upper extremity Status: Acute (6) Cholecystitis Status: Acute (7) Complications, dialysis, catheter, mechanical Status: Acute (8) End stage renal disease Status: Acute (9) Epigastric abdominal pain Status: Acute (10) ESRD (end stage renal disease) on dialysis Status: Acute (11) Headache Status: Acute (12) Hypocalcemia Status: Acute (13) Hypocalcemia Permanent Comment: She has severe Critical hypocalcemia from missing Dialysis for so long. Will give 4gm ivpb now. with dialysis it should improve further. Status: Acute (14) Non-cardiac chest pain Status: Acute (15) Otitis media Status: Acute (16) Renal failure Status: Acute (17) Renal failure Permanent Comment: ESRD due to FSGS, chronic hemodialysis via Fistula, noncompliant, s/p kidney transplant in 2013 with failure due to stopping medications. (18) Severe anemia Status: Acute (19) Substernal chest pain Status: Acute (Tami Hardy PA-C) Family History Crohn's disease FATHER Diabetes mellitus MOTHER Hypertension SISTER (Tami Hardy PA-C) Crohn's disease FATHER Diabetes mellitus MOTHER Hypertension SISTER (Adolph Snow M.D.) Social History Smoking Status: Current Every Day Smoker (3 cigarettes per day) Smokeless Tobacco Use: No Alcohol Use: none Drug Use: none Marital Status: in relationship Housing Status: lives with family, lives with significant other Occupation Status: disabled (Tami Hardy PA-C) Allergies Coded Allergies: Cefaclor (Verified Allergy, Unknown, Rash, 10/03/16) Reported by PT. Home Medications Scheduled Calcium Acetate (Phoslo 667 Mg), 1,334 MG PO WITH SNACKS Calcium Acetate (Phoslo 667 Mg), 1,334 MG PO BEFORE MEALS Calcium Acetate (Phoslo 667 Mg), 1,334 MG PO AFTER MEALS Calcium Carbonate (Tums), 1,500 MG PO HS Carvedilol (Coreg), 3.125 MG PO BID Colchicine (Colchicine), 0.3 MG PO 2XWK Escitalopram Oxalate (Escitalopram Oxalate), 20 MG PO QAM Famotidine (Pepcid), 40 MG PO QAM Lisinopril (Lisinopril), 40 MG PO HS Mirtazapine (Remeron), 30 MG PO HS Trazodone Hcl (Trazodone), 50 MG PO HS Scheduled PRN Albuterol Hfa (Ventolin Hfa), 2 PUFFS INH QID PRN for Allergy Symptoms Current Inpatient Medications Current Inpatient Medications Medications (Trade) Dose Ordered Sig/Sachin Route Start Time Stop Time Status Last Admin Dose Admin Hydromorphone HCl (Dilaudid Inj) 0.5 mg Q4H PRN IV 12/17/16 00:00 12/31/16 00:00 Acetaminophen (Tylenol Tab) 650 mg Q4H PRN PO 12/17/16 00:30 01/16/17 00:29 12/17/16 05:44 650 MG Glucose (Glucose 40% Gel) 15-30 GRAMS 15 GRAMS... UD PRN PO 12/17/16 00:30 01/16/17 00:29 Glucose (Glucose Chew Tab) 4-8 Tablets 4 Tabl... UD PRN PO 12/17/16 00:30 01/16/17 00:29 Dextrose (Dextrose 50% 50ML Syringe) 25-50ML OF 50% DW IV FOR... UD PRN IV 12/17/16 00:30 01/16/17 00:29 Glucagon (Glucagon Inj) 1 mg UD PRN SQ 12/17/16 00:30 01/16/17 00:29 Ondansetron HCl (Zofran Inj) 4 mg Q6H PRN IV 12/17/16 00:30 01/16/17 00:29 Lorazepam (Ativan Inj) 0.5 mg Q4H PRN IV 12/17/16 00:30 01/16/17 00:29 Tramadol HCl not relieved by tylenol @ Q6H PRN PO 12/17/16 00:30 01/16/17 00:29 12/17/16 13:26 50 MG Promethazine HCl/ Sodium Chloride (Phenergan Inj/ Nss 50ml) 50.5 ml @ 204 mls/hr Q6H PRN IV 12/17/16 00:30 01/16/17 00:29 Calcium Acetate (Phoslo Cap) 1,334 mg PC PO 12/17/16 09:15 01/16/17 09:14 Calcium Acetate (Phoslo Cap) 1,334 mg AC PO 12/17/16 08:00 01/16/17 07:59 Calcium Acetate (Phoslo Cap) 1,334 mg TIDM PRN PO 12/17/16 08:30 01/16/17 08:29 Calcium Carbonate (Tums Chew Tab) 1,500 mg HS PO 12/17/16 21:00 01/16/17 20:59 Carvedilol (Coreg Tab) 3.125 mg BID PO 12/17/16 09:00 01/16/17 08:59 Colchicine (Colchicine Tab) 0.3 mg MoFr@0900 PO 12/17/16 09:00 01/16/17 08:59 Escitalopram Oxalate (Lexapro Tab) 20 mg QAM PO 12/17/16 09:00 01/16/17 08:59 Famotidine (Pepcid Tab) 40 mg QAM PO 12/17/16 09:00 01/16/17 08:59 Mirtazapine (Remeron Tab) 30 mg HS PO 12/17/16 21:00 01/16/17 20:59 Trazodone HCl (Desyrel Tab) 50 mg HS PO 12/17/16 21:00 01/16/17 20:59 Miscellaneous (Iv Fluids Completed) 1 ea PRN PRN N/A 12/17/16 00:45 12/17/17 00:44 Diphenhydramine HCl (Benadryl Cap) 25 mg Q6H PRN PO 12/17/16 01:15 01/16/17 01:14 Ampicillin Sodium/ Sulbactam Sodium (Consult) 1 ea DAILY PRN N/A 12/17/16 09:00 01/16/17 08:59 Insulin Aspart (novoLOG ASPART) SLIDING SCALE If C... Q6 SC 12/17/16 12:00 01/16/17 11:59 Heparin Sodium (Porcine) (Heparin Iv Bolus) 1,000 unit ONE IV 12/17/16 07:45 12/17/16 18:00 Heparin Sodium (Porcine) 400 unit 400 unit Q1H IV 12/17/16 07:45 12/17/16 18:00 Epoetin Travis 70586 units/ Syringe 0.6 ml @ 1 mls/min 0900 IV. 12/17/16 09:00 12/17/16 18:00 12/17/16 12:19 1 MLS/MIN Ampicillin Sodium/ Sulbactam Sodium/ Sodium Chloride (Unasyn Inj/Nss 100ml) 108 ml @ 216 mls/hr Q24H IV 12/17/16 16:00 12/27/16 15:59 (Tami Hardy ., PA-C) Review of Systems Constitutional: No chills, No fever, No sweats Respiratory: No shortness of breath, No wheezing Cardiovascular: + chest pain Abdomen: + pain (right upper abdomen), No constipation, No diarrhea, No nausea , No vomiting Integumentary: No color change (Tami Hardy ., PA-C) Physical Exam Date Time Temp Pulse Resp B/P Pulse Ox O2 Delivery O2 Flow Rate FiO2 12/17/16 13:23 36.9 72 16 134/88 98 Room Air 12/17/16 13:02 37.3 69 138/84 4/24/17 12:15 67 149/95 12/17/16 12:00 67 150/93 12/17/16 11:45 67 145/91 12/17/16 11:30 67 154/96 12/17/16 11:15 66 145/87 12/17/16 11:00 65 139/84 12/17/16 10:45 65 149/85 12/17/16 10:30 68 140/79 12/17/16 10:15 66 148/90 12/17/16 10:00 65 153/97 12/17/16 09:45 66 143/90 12/17/16 09:30 65 146/92 12/17/16 09:15 62 150/90 12/17/16 08:58 63 153/96 12/17/16 07:50 Room Air 12/17/16 07:07 36.8 68 18 144/91 97 Room Air 12/17/16 02:45 Room Air 12/17/16 02:45 36.7 74 18 174/110 100 Room Air 12/17/16 02:17 71 18 150/95 96 12/16/16 22:17 79 18 162/107 97 Room Air 12/16/16 20:13 36.7 87 18 179/99 99 Room Air General Appearance: WD/WN, no apparent distress Head: normocephalic, atraumatic Eyes: sclerae normal ENT: hearing grossly normal Neck: supple, trachea midline Respiratory/Chest: chest non-tender, lungs clear, normal breath sounds, no respiratory distress, no accessory muscle use Cardiovascular: regular rate, rhythm, no murmur Abdomen/GI: soft, no organomegaly, no pulsatile mass, + tenderness (RUQ), + guarding (voluntary guarding in RUQ), + pertinent finding Neurologic/Psych: alert, normal mood/affect, oriented x 3 Skin: normal color, warm/dry, no rash (Tami Hardy ., AMY-C) Laboratory Results Last 24 Hours Test 12/16/16 21:10 12/16/16 21:21 12/17/16 05:49 12/17/16 13:17 White Blood Count 5.70 K/uL 3.86 K/uL Red Blood Count 2.65 M/uL 2.65 M/uL Hemoglobin 8.5 g/dL 8.6 g/dL Hematocrit 26.1 % 26.1 % Mean Corpuscular Volume 98.5 fL 98.5 fL Mean Corpuscular Hemoglobin 32.1 pg 32.5 pg Mean Corpuscular Hemoglobin Concent 32.6 g/dl 33.0 g/dl Platelet Count 125 K/uL 116 K/uL Mean Platelet Volume 10.3 fL 10.3 fL Neutrophils (%) (Auto) 74.5 % 63.0 % Lymphocytes (%) (Auto) 14.2 % 26.4 % Monocytes (%) (Auto) 6.0 % 5.4 % Eosinophils (%) (Auto) 4.0 % 4.9 % Basophils (%) (Auto) 1.1 % 0.3 % Neutrophils # (Auto) 4.25 K/uL 2.43 K/uL Lymphocytes # (Auto) 0.81 K/uL 1.02 K/uL Monocytes # (Auto) 0.34 K/uL 0.21 K/uL Eosinophils # (Auto) 0.23 K/uL 0.19 K/uL Basophils # (Auto) 0.06 K/uL 0.01 K/uL RDW Standard Deviation 58.2 fL 57.7 fL RDW Coefficient of Variation 16.3 % 16.2 % Immature Granulocyte % (Auto) 0.2 % 0.0 % Immature Granulocyte # (Auto) 0.01 K/uL 0.00 K/uL Ovalocytes 1+ 1+ Sodium Level 138 mmol/L 137 mmol/L Potassium Level 4.6 mmol/L 5.2 mmol/L Chloride Level 99 mmol/L 101 mmol/L Carbon Dioxide Level 21 mmol/L 19 mmol/L Anion Gap 18.0 mmol/L 23.0 mmol/L 17.0 mmol/L Blood Urea Nitrogen 100 mg/dl 98 mg/dl Creatinine 13.00 mg/dl 13.00 mg/dl Est Creatinine Clear Calc Drug Dose 7.2 ml/min 7.2 ml/min Estimated GFR () 3.9 3.9 Estimated GFR (Non- 3.4 3.4 BUN/Creatinine Ratio 7.7 7.5 Random Glucose 163 mg/dl 86 mg/dl Calcium Level 7.5 mg/dl 7.6 mg/dl Magnesium Level 3.0 mg/dl Total Bilirubin 0.3 mg/dl 0.4 mg/dl Direct Bilirubin < 0.1 mg/dl 0.1 mg/dl Aspartate Amino Transf (AST/SGOT) 26 U/L 17 U/L Alanine Aminotransferase (ALT/SGPT) 38 U/L 36 U/L Alkaline Phosphatase 61 U/L 61 U/L Total Protein 6.3 gm/dl 6.4 gm/dl Albumin 3.1 gm/dl 3.1 gm/dl Lipase 369 U/L Human Chorionic Gonadotropin, Qual NEG Bedside Hemoglobin 8.2 g/dl Bedside Hematocrit 24 % Bedside Sodium 136 mEq/L Bedside Potassium 4.6 mEq/L Bedside Chloride 99 mEq/L Bedside Total CO2 20 mEq/l Bedside Blood Urea Nitrogen 107 mg/dl Bedside Creatinine 11.8 mg/dl Bedside Glucose (other) 151 mg/dl Bedside Ionized Calcium (Shadia) 1.00 mmol/l Giant Platelets 1+ Echinocytes 1+ Iron Level 39 mcg/dl Total Iron Binding Capacity 221 mcg/dl Transferrin 177 mg/dl Transferrin % Saturation 16 % Heparin-PF4 Antibody Screen NEG Bedside Glucose 80 mg/dl (Tami Hardy ., PA-C) Assessment & Plan RUQ abdominal pain Possible Cholecystitis? -afebrile, no leukocytosis - US showing wall thickening and pericholecystic fluid, no gallstones - RUQ tenderness on examination ESRD requiring hemodialysis- Fluid and edema surrounding gallbladder on CT scan could be from fluid accumulation with not having dialysis for (2 weeks?) patient is noncompliant with dialysis Plan: Plan for HIDA scan today to further evaluate if her RUQ abdominal pain is gallbladder etiology. Keep NPO for HIDA scan. Await results of HIDA scan to discuss laparoscopic cholecystectomy Continue further management established by medicine service. Dr. Snow has seen and examined patient, agrees with assessment and plan. (Tami Hardy, PA-C) I interviewed and examined this patient and reviwed the labs and radiology images and reports and I agree with the above note. She has RUQ pain and tenderness but also had fluid overload after skipping previous dialysis treatment. Will get HIDA scan to assess for acute cholecystitis. (Adolph Snow M.D.)
[2016-12-17] MEDS: HYDROmorphone INJ 0.5 MG/0.5 ML SYR IV PRN ×2 (15:53→22:18)
[2016-12-17] MEDS ORDERED: AMPICILLIN/SULBACTAM SOD INJ 3,000 MG in SODIUM CHLORIDE 0.9% 100ML 100 ML IV SCH (16:00)
--- NOTE | 2016-12-17 18:17 | Progress Note ---
Medicine Progress Note Date & Time of Visit: Dec 17, 2016 at 18:09. Subjective Patient seen and examined. Had HD today. Still c/o 10/10 RUQ pain. However, able to sit up in bed without any difficulty. Objective Last 8 Hrs Date Time Temp Pulse Resp B/P Pulse Ox O2 Delivery O2 Flow Rate FiO2 12/17/16 15:59 37.3 75 18 148/88 94 Room Air 12/17/16 15:35 Room Air 12/17/16 13:23 36.9 72 16 134/88 98 Room Air 12/17/16 13:02 37.3 69 138/84 12/17/16 12:15 67 149/95 12/17/16 12:00 67 150/93 12/17/16 11:45 67 145/91 12/17/16 11:30 67 154/96 12/17/16 11:15 66 145/87 12/17/16 11:00 65 139/84 12/17/16 10:45 65 149/85 12/17/16 10:30 68 140/79 12/17/16 10:15 66 148/90 Physical Exam: General-awake; alert; NAD Eyes-EOMI; no scleral icterus Neck-no stridor; trachea midline Lungs-CTA bilaterally; no wheezes/crackles Heart-RRR; no m/r/g Abdomen-soft; NT; nontender to palpation with stethoscope; RUQ tenderness to palpation with hand; nBS Extremities-no c/c/e; no deformity Neuro-no focal deficits Laboratory Results: Last 24 Hours Test 12/16/16 21:10 12/16/16 21:21 12/17/16 05:49 12/17/16 13:17 White Blood Count 5.70 K/uL 3.86 K/uL Red Blood Count 2.65 M/uL 2.65 M/uL Hemoglobin 8.5 g/dL 8.6 g/dL Hematocrit 26.1 % 26.1 % Mean Corpuscular Volume 98.5 fL 98.5 fL Mean Corpuscular Hemoglobin 32.1 pg 32.5 pg Mean Corpuscular Hemoglobin Concent 32.6 g/dl 33.0 g/dl Platelet Count 125 K/uL 116 K/uL Mean Platelet Volume 10.3 fL 10.3 fL Neutrophils (%) (Auto) 74.5 % 63.0 % Lymphocytes (%) (Auto) 14.2 % 26.4 % Monocytes (%) (Auto) 6.0 % 5.4 % Eosinophils (%) (Auto) 4.0 % 4.9 % Basophils (%) (Auto) 1.1 % 0.3 % Neutrophils # (Auto) 4.25 K/uL 2.43 K/uL Lymphocytes # (Auto) 0.81 K/uL 1.02 K/uL Monocytes # (Auto) 0.34 K/uL 0.21 K/uL Eosinophils # (Auto) 0.23 K/uL 0.19 K/uL Basophils # (Auto) 0.06 K/uL 0.01 K/uL RDW Standard Deviation 58.2 fL 57.7 fL RDW Coefficient of Variation 16.3 % 16.2 % Immature Granulocyte % (Auto) 0.2 % 0.0 % Immature Granulocyte # (Auto) 0.01 K/uL 0.00 K/uL Ovalocytes 1+ 1+ Sodium Level 138 mmol/L 137 mmol/L Potassium Level 4.6 mmol/L 5.2 mmol/L Chloride Level 99 mmol/L 101 mmol/L Carbon Dioxide Level 21 mmol/L 19 mmol/L Anion Gap 18.0 mmol/L 23.0 mmol/L 17.0 mmol/L Blood Urea Nitrogen 100 mg/dl 98 mg/dl Creatinine 13.00 mg/dl 13.00 mg/dl Est Creatinine Clear Calc Drug Dose 7.2 ml/min 7.2 ml/min Estimated GFR () 3.9 3.9 Estimated GFR (Non- 3.4 3.4 BUN/Creatinine Ratio 7.7 7.5 Random Glucose 163 mg/dl 86 mg/dl Calcium Level 7.5 mg/dl 7.6 mg/dl Magnesium Level 3.0 mg/dl Total Bilirubin 0.3 mg/dl 0.4 mg/dl Direct Bilirubin < 0.1 mg/dl 0.1 mg/dl Aspartate Amino Transf (AST/SGOT) 26 U/L 17 U/L Alanine Aminotransferase (ALT/SGPT) 38 U/L 36 U/L Alkaline Phosphatase 61 U/L 61 U/L Total Protein 6.3 gm/dl 6.4 gm/dl Albumin 3.1 gm/dl 3.1 gm/dl Lipase 369 U/L Human Chorionic Gonadotropin, Qual NEG Bedside Hemoglobin 8.2 g/dl Bedside Hematocrit 24 % Bedside Sodium 136 mEq/L Bedside Potassium 4.6 mEq/L Bedside Chloride 99 mEq/L Bedside Total CO2 20 mEq/l Bedside Blood Urea Nitrogen 107 mg/dl Bedside Creatinine 11.8 mg/dl Bedside Glucose (other) 151 mg/dl Bedside Ionized Calcium (Shadia) 1.00 mmol/l Giant Platelets 1+ Echinocytes 1+ Iron Level 39 mcg/dl Total Iron Binding Capacity 221 mcg/dl Transferrin 177 mg/dl Transferrin % Saturation 16 % Heparin-PF4 Antibody Screen NEG Bedside Glucose 80 mg/dl Assessment & Plan Patient is a 31 y/o female with ESRD non-compliant with dialysis who presents for evaluation of abdominal pain. Abdominal pain - ?? possible cholecystitis - General surgery consulted - CT a/p and RUQ ultrasound equivocal and findings could also be due to volume ( patient is noncompliant with going to HD) - normal lft's - afebrile and normal WBC count - HIDA scan pending - discontinued Unasyn - possible OR tomorrow for cholecystectomy ESRD on HD - Nephrology consulted for HD while inpatient HTN - continue carvedilol and lisinopril Anticipate discharge home. Consultants: General surgery Nephrology Current Inpatient Medications: Current Inpatient Medications Medications (Trade) Dose Ordered Sig/Sachin Route Start Time Stop Time Status Last Admin Dose Admin Hydromorphone HCl (Dilaudid Inj) 0.5 mg Q4H PRN IV 12/17/16 00:00 12/31/16 00:00 12/17/16 15:53 0.5 MG Acetaminophen (Tylenol Tab) 650 mg Q4H PRN PO 12/17/16 00:30 01/16/17 00:29 12/17/16 05:44 650 MG Glucose (Glucose 40% Gel) 15-30 GRAMS 15 GRAMS... UD PRN PO 12/17/16 00:30 01/16/17 00:29 Glucose (Glucose Chew Tab) 4-8 Tablets 4 Tabl... UD PRN PO 12/17/16 00:30 01/16/17 00:29 Dextrose (Dextrose 50% 50ML Syringe) 25-50ML OF 50% DW IV FOR... UD PRN IV 12/17/16 00:30 01/16/17 00:29 Glucagon (Glucagon Inj) 1 mg UD PRN SQ 12/17/16 00:30 01/16/17 00:29 Ondansetron HCl (Zofran Inj) 4 mg Q6H PRN IV 12/17/16 00:30 01/16/17 00:29 Lorazepam (Ativan Inj) 0.5 mg Q4H PRN IV 12/17/16 00:30 01/16/17 00:29 Tramadol HCl not relieved by tylenol @ Q6H PRN PO 12/17/16 00:30 01/16/17 00:29 12/17/16 13:26 50 MG Promethazine HCl/ Sodium Chloride (Phenergan Inj/ Nss 50ml) 50.5 ml @ 204 mls/hr Q6H PRN IV 12/17/16 00:30 01/16/17 00:29 Calcium Acetate (Phoslo Cap) 1,334 mg PC PO 12/17/16 09:15 01/16/17 09:14 Calcium Acetate (Phoslo Cap) 1,334 mg AC PO 12/17/16 08:00 01/16/17 07:59 Calcium Acetate (Phoslo Cap) 1,334 mg TIDM PRN PO 12/17/16 08:30 01/16/17 08:29 Calcium Carbonate (Tums Chew Tab) 1,500 mg HS PO 12/17/16 21:00 01/16/17 20:59 Carvedilol (Coreg Tab) 3.125 mg BID PO 12/17/16 09:00 01/16/17 08:59 Colchicine (Colchicine Tab) 0.3 mg MoFr@0900 PO 12/17/16 09:00 01/16/17 08:59 Escitalopram Oxalate (Lexapro Tab) 20 mg QAM PO 12/17/16 09:00 01/16/17 08:59 Famotidine (Pepcid Tab) 40 mg QAM PO 12/17/16 09:00 01/16/17 08:59 Mirtazapine (Remeron Tab) 30 mg HS PO 12/17/16 21:00 01/16/17 20:59 Trazodone HCl (Desyrel Tab) 50 mg HS PO 12/17/16 21:00 01/16/17 20:59 Miscellaneous (Iv Fluids Completed) 1 ea PRN PRN N/A 12/17/16 00:45 12/17/17 00:44 Diphenhydramine HCl (Benadryl Cap) 25 mg Q6H PRN PO 12/17/16 01:15 01/16/17 01:14 Insulin Aspart (novoLOG ASPART) SLIDING SCALE If C... Q6 SC 12/17/16 12:00 01/16/17 11:59
--- NOTE | 2016-12-17 18:30 | Nephrology Consultation ---
Nephrology Consultation Date of Consultation: Dec 17, 2016. Attending Physician: Dr Pascual Requesting Physician: Dr Pascual Reason for Consultation: ESRD History of Present Illness 31 year old female under observation currently for evaluation of epigastric pain. PMH includes ESRD on MWF HD via AVF at [facility] under Dr Jo , anxiety/depression, obesity; hx of FSGS s/p failed renal txplt due in part to adherence issues w/ immunosuppression, HTN, active tobacco abuse, recent admission here for suspected pericarditis last month. d/c on twice weekly colchicine x 1 month. Last HD was Saturday, 12/12. She had sudden onset of RUQ/ epistastric pain starting 12/16 AM; worse w/ mvt; denies n/v/d/dyspnea. Denies pain around allograft. Pt seen on rounds this am at 0820; surgery evaluated her later in the day and HIDA scan planned; may need lap dawit. Her dialysis catheter was recently removed; she has been dialyzing successfully w/ AVF. Past Medical/Surgical History Medical Problems: (3) Anemia Status: Acute (6) Cholecystitis Status: Acute (8) End stage renal disease Status: Acute (9) Epigastric abdominal pain Status: Acute (10) ESRD (end stage renal disease) on dialysis Active/chronic Family History Crohn's disease FATHER Diabetes mellitus MOTHER Hypertension SISTER Social History Smoking Status: Current Every Day Smoker Alcohol Use: none Drug Use: none Marital Status: in relationship Housing Status: lives with family, lives with significant other Occupation Status: disabled Allergies Coded Allergies: Cefaclor (Verified Allergy, Unknown, Rash, 10/03/16) Reported by PT. Medications Current Inpatient Medications Medications (Trade) Dose Ordered Sig/Sachin Route Start Time Stop Time Status Last Admin Dose Admin Hydromorphone HCl (Dilaudid Inj) 0.5 mg Q4H PRN IV 12/17/16 00:00 12/31/16 00:00 Acetaminophen (Tylenol Tab) 650 mg Q4H PRN PO 12/17/16 00:30 01/16/17 00:29 12/17/16 05:44 650 MG Glucose (Glucose 40% Gel) 15-30 GRAMS 15 GRAMS... UD PRN PO 12/17/16 00:30 01/16/17 00:29 Glucose (Glucose Chew Tab) 4-8 Tablets 4 Tabl... UD PRN PO 12/17/16 00:30 01/16/17 00:29 Dextrose (Dextrose 50% 50ML Syringe) 25-50ML OF 50% DW IV FOR... UD PRN IV 12/17/16 00:30 01/16/17 00:29 Glucagon (Glucagon Inj) 1 mg UD PRN SQ 12/17/16 00:30 01/16/17 00:29 Ondansetron HCl (Zofran Inj) 4 mg Q6H PRN IV 12/17/16 00:30 01/16/17 00:29 Lorazepam (Ativan Inj) 0.5 mg Q4H PRN IV 12/17/16 00:30 01/16/17 00:29 Tramadol HCl not relieved by tylenol @ Q6H PRN PO 12/17/16 00:30 01/16/17 00:29 Promethazine HCl/ Sodium Chloride (Phenergan Inj/ Nss 50ml) 50.5 ml @ 204 mls/hr Q6H PRN IV 12/17/16 00:30 01/16/17 00:29 Calcium Acetate (Phoslo Cap) 1,334 mg PC PO 12/17/16 09:15 01/16/17 09:14 Calcium Acetate (Phoslo Cap) 1,334 mg AC PO 12/17/16 08:00 01/16/17 07:59 Calcium Acetate (Phoslo Cap) 1,334 mg TIDM PRN PO 12/17/16 08:30 01/16/17 08:29 Calcium Carbonate (Tums Chew Tab) 1,500 mg HS PO 12/17/16 21:00 01/16/17 20:59 Carvedilol (Coreg Tab) 3.125 mg BID PO 12/17/16 09:00 01/16/17 08:59 Colchicine (Colchicine Tab) 0.3 mg MoFr@0900 PO 12/17/16 09:00 01/16/17 08:59 Escitalopram Oxalate (Lexapro Tab) 20 mg QAM PO 12/17/16 09:00 01/16/17 08:59 Famotidine (Pepcid Tab) 40 mg QAM PO 12/17/16 09:00 01/16/17 08:59 Mirtazapine (Remeron Tab) 30 mg HS PO 12/17/16 21:00 01/16/17 20:59 Trazodone HCl (Desyrel Tab) 50 mg HS PO 12/17/16 21:00 01/16/17 20:59 Miscellaneous (Iv Fluids Completed) 1 ea PRN PRN N/A 12/17/16 00:45 12/17/17 00:44 Diphenhydramine HCl (Benadryl Cap) 25 mg Q6H PRN PO 12/17/16 01:15 01/16/17 01:14 Ampicillin Sodium/ Sulbactam Sodium (Consult) 1 ea DAILY PRN N/A 12/17/16 09:00 01/16/17 08:59 Insulin Aspart (novoLOG ASPART) SLIDING SCALE If C... Q6 SC 12/17/16 12:00 01/16/17 11:59 Home Meds and Scripts Medications Dose Route/Sig Max Daily Dose Days Date Category Dose Instructions Phoslo 667 Mg (Calcium Acetate) 667 Mg Cap 1,334 Mg PO AFTER MEALS 12/02/16 Reported Escitalopram Oxalate 20 Mg Tab 20 Mg PO QAM 12/02/16 Reported Colchicine 0.6 Mg Tab 0.3 Mg PO 2XWK 12/02/16 Reported TAKE HALF A TABLET (0.3 MG) EVERY SATURDAY AND SATURDAY AFTER DIALYSIS Coreg (Carvedilol) 3.125 Mg Tab 3.125 Mg PO BID 12/02/16 Reported Lisinopril 40 Mg Tab 40 Mg PO HS 12/02/16 Reported Trazodone (Trazodone HCl) 50 Mg Tab 50 Mg PO HS 11/18/16 Reported Phoslo 667 Mg (Calcium Acetate) 667 Mg Cap 1,334 Mg PO BEFORE MEALS 11/18/16 Reported Remeron (Mirtazapine) 30 Mg Tab 30 Mg PO HS 08/24/16 Reported Tums (Calcium Carbonate) 500 Mg Chew 1,500 Mg PO HS 07/05/16 Reported Ventolin Hfa (Albuterol) 200 Puffs/43030 Mcg Aers 2 Puffs INH QID PRN 07/05/16 Reported Pepcid (Famotidine) 40 Mg Tab 40 Mg PO QAM 07/05/16 Reported Phoslo 667 Mg (Calcium Acetate) 667 Mg Cap 1,334 Mg PO WITH SNACKS 06/27/16 Reported 2 CAPSULES WITH SNACKS Review of Systems Constitutional: + fatigue, No fever, No weakness Eyes: No worsening of vision ENT: No hearing loss Respiratory: No cough, No shortness of breath Cardiac: No chest pain, No edema, No palpitations Abdomen: + see HPI Musculoskeletal: No joint pain, No muscle pain Female : No abnormal vaginal bleeding, No dysuria, No hematuria, No urinary frequency Neuro: No balance problems, No memory loss, No weakness Psych: + anxiety, No depression symptoms Heme: No abnormal bleeding/bruising Endo: + fatigue Skin: No rash Physical Exam Date Time Temp Pulse Resp B/P Pulse Ox O2 Delivery O2 Flow Rate FiO2 12/17/16 07:07 36.8 68 18 144/91 97 Room Air 12/17/16 02:45 Room Air 12/17/16 02:45 36.7 74 18 174/110 100 Room Air 12/17/16 02:17 71 18 150/95 96 12/16/16 22:17 79 18 162/107 97 Room Air 12/16/16 20:13 36.7 87 18 179/99 99 Room Air 24-Hour Column 12/17/16 08:00 Output Total 225 ml Balance -225 ml General Appearance: WD/WN, no apparent distress, + obese (on RA, maneuvers readily for exam) Eyes: EOMI ENT: hearing grossly normal Neck: supple Respiratory/Chest: lungs clear, no respiratory distress, no accessory muscle use, + decreased breath sounds Cardiovascular: regular rate, rhythm Abdomen: normal bowel sounds, soft, no organomegaly, no pulsatile mass, + tenderness (to moderate palpation epigastric/ ruq) Extremities: normal range of motion, non-tender, + pertinent finding (avf + t/b ) Neurologic/Psych: alert, normal mood/affect, oriented x 3 Skin: no jaundice, warm/dry, no rash, + pallor Diagnostics Last 24 Hours Test 12/16/16 21:10 12/16/16 21:21 12/17/16 05:49 White Blood Count 5.70 K/uL 3.86 K/uL Red Blood Count 2.65 M/uL 2.65 M/uL Hemoglobin 8.5 g/dL 8.6 g/dL Hematocrit 26.1 % 26.1 % Mean Corpuscular Volume 98.5 fL 98.5 fL Mean Corpuscular Hemoglobin 32.1 pg 32.5 pg Mean Corpuscular Hemoglobin Concent 32.6 g/dl 33.0 g/dl Platelet Count 125 K/uL 116 K/uL Mean Platelet Volume 10.3 fL 10.3 fL Neutrophils (%) (Auto) 74.5 % 63.0 % Lymphocytes (%) (Auto) 14.2 % 26.4 % Monocytes (%) (Auto) 6.0 % 5.4 % Eosinophils (%) (Auto) 4.0 % 4.9 % Basophils (%) (Auto) 1.1 % 0.3 % Neutrophils # (Auto) 4.25 K/uL 2.43 K/uL Lymphocytes # (Auto) 0.81 K/uL 1.02 K/uL Monocytes # (Auto) 0.34 K/uL 0.21 K/uL Eosinophils # (Auto) 0.23 K/uL 0.19 K/uL Basophils # (Auto) 0.06 K/uL 0.01 K/uL RDW Standard Deviation 58.2 fL 57.7 fL RDW Coefficient of Variation 16.3 % 16.2 % Immature Granulocyte % (Auto) 0.2 % 0.0 % Immature Granulocyte # (Auto) 0.01 K/uL 0.00 K/uL Ovalocytes 1+ 1+ Sodium Level 138 mmol/L 137 mmol/L Potassium Level 4.6 mmol/L 5.2 mmol/L Chloride Level 99 mmol/L 101 mmol/L Carbon Dioxide Level 21 mmol/L 19 mmol/L Anion Gap 18.0 mmol/L 23.0 mmol/L 17.0 mmol/L Blood Urea Nitrogen 100 mg/dl 98 mg/dl Creatinine 13.00 mg/dl 13.00 mg/dl Est Creatinine Clear Calc Drug Dose 7.2 ml/min 7.2 ml/min Estimated GFR () 3.9 3.9 Estimated GFR (Non- 3.4 3.4 BUN/Creatinine Ratio 7.7 7.5 Random Glucose 163 mg/dl 86 mg/dl Calcium Level 7.5 mg/dl 7.6 mg/dl Magnesium Level 3.0 mg/dl Total Bilirubin 0.3 mg/dl 0.4 mg/dl Direct Bilirubin < 0.1 mg/dl 0.1 mg/dl Aspartate Amino Transf (AST/SGOT) 26 U/L 17 U/L Alanine Aminotransferase (ALT/SGPT) 38 U/L 36 U/L Alkaline Phosphatase 61 U/L 61 U/L Total Protein 6.3 gm/dl 6.4 gm/dl Albumin 3.1 gm/dl 3.1 gm/dl Lipase 369 U/L Human Chorionic Gonadotropin, Qual NEG Bedside Hemoglobin 8.2 g/dl Bedside Hematocrit 24 % Bedside Sodium 136 mEq/L Bedside Potassium 4.6 mEq/L Bedside Chloride 99 mEq/L Bedside Total CO2 20 mEq/l Bedside Blood Urea Nitrogen 107 mg/dl Bedside Creatinine 11.8 mg/dl Bedside Glucose (other) 151 mg/dl Bedside Ionized Calcium (Shadia) 1.00 mmol/l Giant Platelets 1+ Echinocytes 1+ Heparin-PF4 Antibody Screen NEG Diagnostic Radiology: Abd/pelvis CT 1. Abnormal appearing gallbladder which appears to demonstrate a diffusely thickened/edematous wall and associated adjacent pericholecystic fluid/fat stranding. This also mild central periportal edema. Therefore, this could be due to cardiac congestion, underlying hepatic pathology, or acute cholecystitis. Clinical correlation recommended. 2. Pulmonary edema, cardiomegaly, and trace bilateral pleural effusions. 3. No definite bowel wall thickening or obstruction. 4. Normal appendix. 5. No change in the right lower quadrant renal transplant. Atrophic [place] kidneys are also identified. 6. Colonic diverticulosis. CXR mild interstitial edema RUQ u/s mild GB wall thickening Assessment & Plan 31 y/o F w/ ESRD s/p failed renal transplant on MWF HD, anxiety, active tobacco abuse, recent pericarditis admission a/w sudden onset ruq/epigastric pain w/ possible acute cholecystitis. ESRD -routine HD today w/ mini heparin, UF as tolerated in case surgery needed; agree w/ continuing outpt binders; next HD tentatively for 12/19 or as clinical condition dictates Anemia of esrd -procrit today; hgb at least every 48 hrs, better daily HTN -to improve w/ HD and pain control Epigastric/RUQ pain/ possible cholecystitis -for HIDA scan; surgery following Appreciate consult; will follow with you.
--- NOTE | 2016-12-17 19:08 | Anesthesiology Progress Note ---
Anesthesia Progress Note Date of Service Dec 17, 2016. Progress Notes The patient is a 31 y/o female scheduled for a possible laparoscopic cholecystectomy tomorrow by Dr. Snow pending a HIDA scan. She was admitted with abdominal pain and found to have nonspecific gallbladder thickening on abdominal CT and gallbladder ultrasound. The patient has extensive PMH including being admitted one month ago for pericarditis for which she is taking colchicine. She also has ESRD from FSGS with dialysis MWF for which she is noncompliant. She had a kidney transplant in 2013 that has since failed because she was noncompliant with her immunosuppressants due to depression from her family life. Other PMH includes asthma, smoking, mild MR, GERD, DM (diet controlled), chronic anemia (baseline Hgb 8), and obesity. The patient has no problems with anesthesia. She has no CP or SOB and >4 mets activity level. CXR shows stable cardiomegaly with improved interstitial edema. Her recent EKG shows NSR, nonspecific T wave abnormality, and prolonged QT. Her recent echo shows EF 50-55%, mild MR, grade 1 diastolic dysfunction, and trivial pericardial effusion. Labs are significant for WBC 3.9, Hgb 8.6, plt 116, K 5.2, bicarb 19, BUN 98, and Cr 13. On exam the patient was pleasantly lying in bed. She has good neck extension with MP 2 airway. TMD of 3 FB and teeth are intact. Lungs were clear and heart was RRR. She has a L UE AV fistula. The patient is an ASA 4. She was consented for general anesthesia. She was counseled to remain NPO except for sips of water after midnight. The patient was dialyzed today after her labs were drawn. They are to be rechecked tomorrow prior to the procedure.
--- NOTE | 2016-12-17 23:00 | DIAGNOSTIC IMAGING REPORT ---
NUCLEAR HEPATOBILIARY SCAN CLINICAL HISTORY: Right upper quadrant abdominal pain. COMPARISON STUDY: Abdominal ultrasound dated 12/17/2016. Abdominal CT dated 12/16/2016. TECHNIQUE: Dynamic images of the liver and anterior abdomen were obtained every 5 minutes for a total of 60 minutes following the IV administration of 5.5mCi of technetium 99m Choletec. The gallbladder was not visualized at 60 minutes. A 0.5 mg of Dilaudid was then administered with additional imaging performed every 5 minutes for an additional 30 minutes. FINDINGS: The hepatobiliary scan shows prompt and homogeneous hepatic uptake. There is visualized activity within the intra and extrahepatic biliary tree at 10 minutes. There is normal biliary to bowel transit, with small bowel visualized by 20 minutes. The gallbladder was not visualized at 60 minutes. The gallbladder was seen at 65 minutes following Dilaudid administration. IMPRESSION: 1. Delayed visualization of the gallbladder, which was visualized at 65 minutes following Dilaudid administration. This indicates patency of the cystic duct. 2. Delayed visualization of the gallbladder suggests chronic cholecystitis, and both the CT and ultrasound findings remain concerning. Surgical consultation is advised. Electronically signed by: North Quintero M.D. 12/17/2016 10:58 PM Dictated Date/Time: 12/17/2016 10:52 PM
[2016-12-17] MEDS: MIRTAZAPINE TAB 15 MG TAB PO SCH (23:13)
[2016-12-17] MEDS: TRAZODONE HCL 50 MG TAB PO SCH (23:13)
[2016-12-17] MEDS: CALCIUM CARBONATE 500 MG CHEWABLE PO SCH (23:16)
[2016-12-17] MEDS: LISINOPRIL 40 MG TAB PO SCH (23:16)
[2016-12-18] VITALS (10 sets, daily range): BP systolic 147–170; BP diastolic 83–104; PULSE 63–77; TEMP 36.8–37.1; O2SAT 95–99
[2016-12-18] MEDS ORDERED: AMPICILLIN/SULBACTAM CONSULT ACTIVE PRN ×2 (01:28)
[2016-12-18] MEDS ORDERED: AMPICILLIN/SULBACTAM SOD INJ 3,000 MG in SODIUM CHLORIDE 0.9% 100ML 100 ML IV ONE (02:00)
[2016-12-18] MEDS: HYDROmorphone INJ 0.5 MG/0.5 ML SYR IV PRN ×3 (02:21→10:32)
[2016-12-18] MEDS: INSULIN ASPART 100 UNITS/ML 3 ML PEN SC SCH ×5 (06:00→23:44)
[2016-12-18 06:50] LABS: HEMATOCRIT 28.1 % (37-47); MEAN CELL VOLUME 97.6 fL (80-100); MEAN CORPUSCULAR HEMOGLOBIN 30.9 pg (25-34); MEAN CORPUSCULAR HGB CONC 31.7 g/dl (32-36); MEAN PLATELET VOLUME 10.4 fL (7.4-10.4); PLATELET COUNT 117 K/uL (130-400); RED BLOOD COUNT 2.88 M/uL (4.2-5.4); WHITE BLOOD COUNT 2.31 K/uL (4.8-10.8)
[2016-12-18 07:55] LABS: BUN/CREATININE RATIO 5.4 (10-20); CALCIUM 7.9 mg/dl (8.5-10.1); CREATININE 8.8 mg/dl (0.60-1.20); POTASSIUM 4.5 mmol/L (3.5-5.1)
[2016-12-18] MEDS: CALCIUM ACETATE 667MG GELCAP PO SCH ×6 (08:00→18:40)
[2016-12-18] MEDS: FAMOTIDINE 20 MG TAB PO SCH (09:08)
[2016-12-18] MEDS: ESCITALOPRAM OXALATE 20 MG TAB PO SCH (09:08)
[2016-12-18] MEDS: CARVEDILOL 3.125 MG TAB PO SCH ×2 (09:08→21:28)
--- NOTE | 2016-12-18 10:36 | Surgery Progress Note ---
Surgery Progress Note Date of Service Dec 18, 2016. Subjective Post OP Day: HD # 1 + feeling well, + pain controlled (with pain medication otherwise pain 10/10), No SOB, No chest pain, No complaints, No nausea, No vomiting Objective Vital Signs: Date Time Temp Pulse Resp B/P Pulse Ox O2 Delivery O2 Flow Rate FiO2 12/18/16 07:35 37.1 77 18 155/83 96 Room Air 12/18/16 07:15 Room Air 12/18/16 02:20 75 149/93 12/18/16 00:40 Room Air 12/17/16 23:14 73 163/73 12/17/16 23:05 37.2 77 18 164/93 96 Room Air 12/17/16 15:59 37.3 75 18 148/88 94 Room Air 12/17/16 15:35 Room Air 12/17/16 13:23 36.9 72 16 134/88 98 Room Air 12/17/16 13:02 37.3 69 138/84 12/17/16 12:15 67 149/95 12/17/16 12:00 67 150/93 12/17/16 11:45 67 145/91 12/17/16 11:30 67 154/96 12/17/16 11:15 66 145/87 12/17/16 11:00 65 139/84 12/17/16 10:45 65 149/85 12/17/16 10:30 68 140/79 General Appearance: WD/WN, no apparent distress Head: normocephalic, atraumatic Neck: trachea midline Respiratory/Chest: no respiratory distress, no accessory muscle use Abdomen: non distended, soft, + guarding (RUQ), + rebound, + tenderness (RUQ, Positive muphy's sign) Laboratory Results: Results Past 24 Hours Test 12/17/16 13:17 12/17/16 18:12 12/17/16 23:51 12/18/16 06:05 Range/Units Bedside Glucose 80 82 80 70-90 mg/dl White Blood Count 2.31 4.8-10.8 K/uL Red Blood Count 2.88 4.2-5.4 M/uL Hemoglobin 8.9 12.0-16.0 g/dL Hematocrit 28.1 37-47 % Mean Corpuscular Volume 97.6 80-100 fL Mean Corpuscular Hemoglobin 30.9 25-34 pg Mean Corpuscular Hemoglobin Concent 31.7 32-36 g/dl RDW Standard Deviation 56.5 36.4-46.3 fL RDW Coefficient of Variation 16.0 11.5-14.5 % Platelet Count 117 130-400 K/uL Mean Platelet Volume 10.4 7.4-10.4 fL Sodium Level 136 136-145 mmol/L Potassium Level 4.5 3.5-5.1 mmol/L Chloride Level 99 98-107 mmol/L Carbon Dioxide Level 28 21-32 mmol/L Anion Gap 9.0 3-11 mmol/L Blood Urea Nitrogen 47 7-18 mg/dl Creatinine 8.80 0.60-1.20 mg/dl Est Creatinine Clear Calc Drug Dose 10.3 ml/min Estimated GFR () 6.3 Estimated GFR (Non- 5.4 BUN/Creatinine Ratio 5.4 10-20 Random Glucose 68 70-99 mg/dl Calcium Level 7.9 8.5-10.1 mg/dl Test 12/18/16 06:08 12/18/16 06:47 Range/Units Bedside Glucose 72 88 70-90 mg/dl Diagnostic Interpretation: ABDOMEN AND PELVIS CT WITHOUT CONTRAST CT DOSE: 933.26 mGy.cm HISTORY: Epigastric pain. TECHNIQUE: Multiaxial CT images of the abdomen and pelvis were performed without contrast. COMPARISON STUDY: Abdomen and pelvis CT 06/07/2016. FINDINGS: Mild interlobular septal thickening at the lung bases consistent with mild pulmonary edema. The heart is mildly enlarged. Trace bilateral pleural effusions. No pneumoperitoneum. No pneumatosis. No suspicious lytic or blastic osseous lesions. The unenhanced liver, spleen, adrenal glands, and pancreas are unremarkable. Atrophic [place] kidneys are again noted. Mild central periportal edema. There is edema and fluid surrounding the thickened gallbladder. This is new from the prior study. No retroperitoneal lymphadenopathy. Trace pelvic free fluid. The uterus unremarkable. Normal right ovary. A 2.5 cm hypodense lesion within the left ovary which likely represents a cyst. Suboptimal evaluation for bowel pathology due to the lack of intravenous and oral contrast. However, there is no definite bowel wall thickening or obstruction. Colonic diverticulosis. Tiny fat-containing umbilical hernia, unchanged. Partially calcified low density structure within the right lower quadrant likely represents the transplant kidney. This measures 4.2 cm. This is not significantly changed. Normal appendix. IMPRESSION: 1. Abnormal appearing gallbladder which appears to demonstrate a diffusely thickened/edematous wall and associated adjacent pericholecystic fluid/fat stranding. This also mild central periportal edema. Therefore, this could be due to cardiac congestion, underlying hepatic pathology, or acute cholecystitis. Clinical correlation recommended. 2. Pulmonary edema, cardiomegaly, and trace bilateral pleural effusions. 3. No definite bowel wall thickening or obstruction. 4. Normal appendix. 5. No change in the right lower quadrant renal transplant. Atrophic [place] kidneys are also identified. 6. Colonic diverticulosis. ABDOMINAL ULTRASOUND, RIGHT UPPER QUADRANT HISTORY: Abdominal pain. COMPARISON: CT of the abdomen and pelvis December 16, 2016. FINDINGS: There is no biliary ductal dilatation. There is slight coarsening of hepatic echotexture. There is moderate gallbladder wall thickening, measuring 1.3 cm. A small amount of pericholecystic fluid is noted. No gallstones are identified. The pancreatic body is normal. The head and tail are obscured. The right kidney is atrophic and echogenic. IMPRESSION: 1. Moderate gallbladder wall thickening, a nonspecific finding. Small amount of pericholecystic fluid. No gallstones. 2. Atrophic, echogenic right kidney. 3. No biliary ductal dilatation. NUCLEAR HEPATOBILIARY SCAN CLINICAL HISTORY: Right upper quadrant abdominal pain. COMPARISON STUDY: Abdominal ultrasound dated 12/17/2016. Abdominal CT dated 12/16/2016. TECHNIQUE: Dynamic images of the liver and anterior abdomen were obtained every 5 minutes for a total of 60 minutes following the IV administration of 5.5mCi of technetium 99m Choletec. The gallbladder was not visualized at 60 minutes. A 0.5 mg of Dilaudid was then administered with additional imaging performed every 5 minutes for an additional 30 minutes. FINDINGS: The hepatobiliary scan shows prompt and homogeneous hepatic uptake. There is visualized activity within the intra and extrahepatic biliary tree at 10 minutes. There is normal biliary to bowel transit, with small bowel visualized by 20 minutes. The gallbladder was not visualized at 60 minutes. The gallbladder was seen at 65 minutes following Dilaudid administration. IMPRESSION: 1. Delayed visualization of the gallbladder, which was visualized at 65 minutes following Dilaudid administration. This indicates patency of the cystic duct. 2. Delayed visualization of the gallbladder suggests chronic cholecystitis, and both the CT and ultrasound findings remain concerning. Surgical consultation is advised. Assessment & Plan Chronic Cholecystitis RUQ abdominal pain Gallbladder wall thickening - vitals stable - no leukocytosis - afebrile - Pain 10/10, RUQ without pain medication -HIDA scan showing delayed gallbladder filling which is consistent with chronic cholecystitis Plan: Given patients HIDA scan, US, and CT scan results with continued RUQ abdominal pain discussed the option of laparoscopic cholecystectomy with the patient. She states she has been having RUQ abdominal pain off and on after eating spicy/ fatty/greasy meals for the past 4 months. States she is interested in having the surgery as she has been having these symptoms for some time now. Discussed the procedure and risks including but not limited to bleeding, infection, injury to surrounding structures, bile leak, or bile duct injury. Patient understands and informed consent obtained. Discussed this patient with Dr. Snow who is in agreement with above stated findings and treatment plan. Delayed filling of gallbladder by HIDA scan. Continues to have pain. Will plan for cholecystectomy.
--- NOTE | 2016-12-18 12:29 | Nephrology Progress Note ---
Nephrology Progress Note Date of Service: Dec 18, 2016. Subjective seen on rounds this am 0730; still w/ RUQ pain; HIDA c/w chronic cholecystitis and pt possibly for OR today if surgical intervention warranted. no n/v. not dyspneic; uneventful HD yesterday Objective Date Time Temp Pulse Resp B/P Pulse Ox O2 Delivery O2 Flow Rate FiO2 12/18/16 07:35 37.1 77 18 155/83 96 Room Air 12/18/16 07:15 Room Air 12/18/16 02:20 75 149/93 12/18/16 00:40 Room Air 12/17/16 23:14 73 163/73 12/17/16 23:05 37.2 77 18 164/93 96 Room Air 12/17/16 15:59 37.3 75 18 148/88 94 Room Air 12/17/16 15:35 Room Air 12/17/16 13:23 36.9 72 16 134/88 98 Room Air 12/17/16 13:02 37.3 69 138/84 Physical Exam: General Appearance: WD/WN, no apparent distress, + obese (on RA, maneuvers readily for exam) Eyes: EOMI ENT: hearing grossly normal Neck: supple Respiratory/Chest: lungs clear, no respiratory distress, no accessory muscle use, + decreased breath sounds Cardiovascular: regular rate, rhythm Abdomen: normal bowel sounds, soft, no organomegaly, no pulsatile mass, + tenderness (to moderate palpation ruq) Extremities: normal range of motion, non-tender, + pertinent finding (avf + t/b ) Neurologic/Psych: alert, normal mood/affect, oriented x 3 Skin: no jaundice, warm/dry, no rash, + pallor Current Inpatient Medications Medications (Trade) Dose Ordered Sig/Sachin Route Start Time Stop Time Status Last Admin Dose Admin Hydromorphone HCl (Dilaudid Inj) 0.5 mg Q4H PRN IV 12/17/16 00:00 12/31/16 00:00 12/18/16 10:32 0.5 MG Acetaminophen (Tylenol Tab) 650 mg Q4H PRN PO 12/17/16 00:30 01/16/17 00:29 12/17/16 05:44 650 MG Glucose (Glucose 40% Gel) 15-30 GRAMS 15 GRAMS... UD PRN PO 12/17/16 00:30 01/16/17 00:29 Glucose (Glucose Chew Tab) 4-8 Tablets 4 Tabl... UD PRN PO 12/17/16 00:30 01/16/17 00:29 12/18/16 06:27 4 TABS Dextrose (Dextrose 50% 50ML Syringe) 25-50ML OF 50% DW IV FOR... UD PRN IV 12/17/16 00:30 01/16/17 00:29 Glucagon (Glucagon Inj) 1 mg UD PRN SQ 12/17/16 00:30 01/16/17 00:29 Ondansetron HCl (Zofran Inj) 4 mg Q6H PRN IV 12/17/16 00:30 01/16/17 00:29 Tramadol HCl not relieved by tylenol @ Q6H PRN PO 12/17/16 00:30 01/16/17 00:29 12/17/16 13:26 50 MG Promethazine HCl/ Sodium Chloride (Phenergan Inj/ Nss 50ml) 50.5 ml @ 204 mls/hr Q6H PRN IV 12/17/16 00:30 01/16/17 00:29 Calcium Acetate (Phoslo Cap) 1,334 mg PC PO 12/17/16 09:15 01/16/17 09:14 Calcium Acetate (Phoslo Cap) 1,334 mg AC PO 12/17/16 08:00 01/16/17 07:59 Calcium Acetate (Phoslo Cap) 1,334 mg TIDM PRN PO 12/17/16 08:30 01/16/17 08:29 Calcium Carbonate (Tums Chew Tab) 1,500 mg HS PO 12/17/16 21:00 01/16/17 20:59 12/17/16 23:16 1,500 MG Carvedilol (Coreg Tab) 3.125 mg BID PO 12/17/16 09:00 01/16/17 08:59 12/18/16 09:08 3.125 MG Colchicine (Colchicine Tab) 0.3 mg MoFr@0900 PO 12/17/16 09:00 01/16/17 08:59 Escitalopram Oxalate (Lexapro Tab) 20 mg QAM PO 12/17/16 09:00 01/16/17 08:59 12/18/16 09:08 20 MG Famotidine (Pepcid Tab) 40 mg QAM PO 12/17/16 09:00 01/16/17 08:59 12/18/16 09:08 40 MG Mirtazapine (Remeron Tab) 30 mg HS PO 12/17/16 21:00 01/16/17 20:59 12/17/16 23:13 30 MG Trazodone HCl (Desyrel Tab) 50 mg HS PO 12/17/16 21:00 01/16/17 20:59 12/17/16 23:13 50 MG Miscellaneous (Iv Fluids Completed) 1 ea PRN PRN N/A 12/17/16 00:45 12/17/17 00:44 Diphenhydramine HCl (Benadryl Cap) 25 mg Q6H PRN PO 12/17/16 01:15 01/16/17 01:14 12/18/16 03:47 25 MG Insulin Aspart (novoLOG ASPART) SLIDING SCALE If C... Q6 SC 12/17/16 12:00 01/16/17 11:59 Lisinopril (Zestril Tab) 40 mg HS PO 12/17/16 21:00 01/16/17 20:59 12/17/16 23:16 40 MG Ampicillin Sodium/ Sulbactam Sodium 1 ea 1 ea UD PRN N/A 12/18/16 01:28 01/17/17 01:27 Ampicillin Sodium/ Sulbactam Sodium/ Sodium Chloride (Unasyn Inj/Nss 100ml) 108 ml @ 216 mls/hr Q24H IV 12/18/16 16:00 12/28/16 15:59 Last 24 Hours Test 12/17/16 13:17 12/17/16 18:12 12/17/16 23:51 12/18/16 06:05 Bedside Glucose 80 mg/dl 82 mg/dl 80 mg/dl White Blood Count 2.31 K/uL Red Blood Count 2.88 M/uL Hemoglobin 8.9 g/dL Hematocrit 28.1 % Mean Corpuscular Volume 97.6 fL Mean Corpuscular Hemoglobin 30.9 pg Mean Corpuscular Hemoglobin Concent 31.7 g/dl RDW Standard Deviation 56.5 fL RDW Coefficient of Variation 16.0 % Platelet Count 117 K/uL Mean Platelet Volume 10.4 fL Sodium Level 136 mmol/L Potassium Level 4.5 mmol/L Chloride Level 99 mmol/L Carbon Dioxide Level 28 mmol/L Anion Gap 9.0 mmol/L Blood Urea Nitrogen 47 mg/dl Creatinine 8.80 mg/dl Est Creatinine Clear Calc Drug Dose 10.3 ml/min Estimated GFR () 6.3 Estimated GFR (Non- 5.4 BUN/Creatinine Ratio 5.4 Random Glucose 68 mg/dl Calcium Level 7.9 mg/dl Test 12/18/16 06:08 12/18/16 06:47 12/18/16 11:48 Bedside Glucose 72 mg/dl 88 mg/dl 80 mg/dl Assessment & Plan 31 y/o F w/ ESRD s/p failed renal transplant on MWF HD, anxiety, active tobacco abuse, recent pericarditis admission a/w sudden onset ruq/epigastric pain w/ possible acute / probably chronic cholecystitis for possible cholecystectomy today ESRD -routine HD tomorrow as inpt or as outpt depending on clinical status; no heparin if she is at that point postop; agree w/ continuing outpt binders Anemia of esrd -procrit as indicated w/ HD; hgb at least every 48 hrs, better daily HTN -to improve w/ HD and pain control Epigastric/RUQ pain/ possible cholecystitis -for possbile cholecystectomy today Appreciate consult; will follow with you.
[2016-12-18] MEDS ORDERED: DEXAMETHASONE SOD INJ 4 MG/ML VIAL ONE (12:46)
[2016-12-18] MEDS ORDERED: LIDOCAINE HCL 2% 2 ML VIAL (20MG/ML) ONE (12:46)
[2016-12-18] MEDS ORDERED: MIDAZOLAM HCL 1 MG/ML 2ML VIAL ONE (12:47)
[2016-12-18] MEDS ORDERED: ROCURONIUM BROMIDE 10 MG/ML 5 ML VIAL ONE (12:47)
[2016-12-18] MEDS ORDERED: PROPOFOL IV EMULSION 10 MG/ML 20 ML VIAL IV ONE (12:47)
[2016-12-18] MEDS ORDERED: FENTANYL CITRATE INJ 50 MCG/1 ML 2 ML VIAL ONE ×2 (12:47)
[2016-12-18] MEDS ORDERED: GLYCOPYRROLATE INJ 0.2 MG/ML VIAL ONE ×2 (12:47→13:30)
[2016-12-18] MEDS ORDERED: ONDANSETRON INJ 2 MG/ML 2 ML VIAL ONE (12:47)
[2016-12-18] MEDS ORDERED: NEOSTIGMINE METHYLSULFATE 5 MG/5 ML SYR ONE (12:47)
[2016-12-18] MEDS ORDERED: HEPARIN SOD (PORCINE) 1000 UNIT/ML 10 ML VIAL ONE (13:00)
[2016-12-18] MEDS ORDERED: CEFAZOLIN SOD 1 GM VIAL ONE (13:00)
[2016-12-18] MEDS ORDERED: BUPIVACAINE 0.5 % 5 MG/1 ML MPF 30ML VIAL ONE (13:01)
--- NOTE | 2016-12-18 14:22 | [facility] Post Operative Brief Note ---
Immediate Operative Summary Operative Date Dec 18, 2016. Pre-Operative Diagnosis Acute Cholecystits Post-Operative Diagnosis Acute Cholecystitis Procedure(s) Performed Laparoscopic Cholecystectomy Surgeon Dr. Rice Coating Mixer Tender Surgeon(s) Tami Hardy-ROSY Estimated Blood Loss 5 ML Findings See dictation Specimens A: Gallbladder and contents Drains None Anesthesia General Complication(s) None Disposition Recovery Room / PACU
--- NOTE | 2016-12-18 14:25 | Progress Note ---
Internal Med Progress Note Date of Service: Dec 18, 2016. Provider Documentation: SUBJECTIVE: has abdominal pain and just had pain meds awaiting surgery afebrile no chest pain or sob OBJECTIVE: Vital Signs-as noted below Exam: General-Alert and oriented ENT-normal hearing Neck-no neck masses Lungs-cta b/l no wheezing or crackles Heart-s1 and s2 heard regular rate and rhythm no murmurs Abdomen-soft bowel sounds present RUQ tender present no distension Extremities-no edema no erythema Neuro-Alert and oriented moves extremities Lab data as noted below. ASSESSMENT & PLAN: Patient is a 31 y/o female with ESRD non-compliant with dialysis who presents for evaluation of abdominal pain. Abdominal pain - CT a/p and RUQ ultrasound equivocal and findings could also be due to volume ( patient is noncompliant with going to HD) HIDA scan -cholecystitis chronic? plan for lap cholecystectomy today will monitor ESRD on HD Nephrology consulted for HD while inpatient HTN on carvedilol and lisinopril will monitor DVT PROPHYLAXIS scds DISPOSITION possible d/c in 1-2 days Vital Signs: Date Time Temp Pulse Resp B/P Pulse Ox O2 Delivery O2 Flow Rate FiO2 12/18/16 07:35 37.1 77 18 155/83 96 Room Air 12/18/16 07:15 Room Air 12/18/16 02:20 75 149/93 12/18/16 00:40 Room Air 12/17/16 23:14 73 163/73 12/17/16 23:05 37.2 77 18 164/93 96 Room Air 12/17/16 15:59 37.3 75 18 148/88 94 Room Air 12/17/16 15:35 Room Air Lab Results: Results Past 24 Hours Test 12/17/16 18:12 12/17/16 23:51 12/18/16 06:05 12/18/16 06:08 Range/Units Bedside Glucose 82 80 72 70-90 mg/dl White Blood Count 2.31 4.8-10.8 K/uL Red Blood Count 2.88 4.2-5.4 M/uL Hemoglobin 8.9 12.0-16.0 g/dL Hematocrit 28.1 37-47 % Mean Corpuscular Volume 97.6 80-100 fL Mean Corpuscular Hemoglobin 30.9 25-34 pg Mean Corpuscular Hemoglobin Concent 31.7 32-36 g/dl RDW Standard Deviation 56.5 36.4-46.3 fL RDW Coefficient of Variation 16.0 11.5-14.5 % Platelet Count 117 130-400 K/uL Mean Platelet Volume 10.4 7.4-10.4 fL Sodium Level 136 136-145 mmol/L Potassium Level 4.5 3.5-5.1 mmol/L Chloride Level 99 98-107 mmol/L Carbon Dioxide Level 28 21-32 mmol/L Anion Gap 9.0 3-11 mmol/L Blood Urea Nitrogen 47 7-18 mg/dl Creatinine 8.80 0.60-1.20 mg/dl Est Creatinine Clear Calc Drug Dose 10.3 ml/min Estimated GFR () 6.3 Estimated GFR (Non- 5.4 BUN/Creatinine Ratio 5.4 10-20 Random Glucose 68 70-99 mg/dl Calcium Level 7.9 8.5-10.1 mg/dl Test 12/18/16 06:47 12/18/16 11:48 Range/Units Bedside Glucose 88 80 70-90 mg/dl
--- NOTE | 2016-12-18 14:48 | OPERATIVE REPORT ---
DATE OF OPERATION: 12/18/2016 PREOPERATIVE DIAGNOSIS: Cholecystitis. POSTOPERATIVE DIAGNOSIS: Same. PROCEDURE: Laparoscopic cholecystectomy. SURGEON: Adolph Snow MD ENERGY SYSTEMS ENGINEER: Tami Hardy PA-C FINDINGS: The gallbladder had edema surrounding and especially between the gallbladder and the liver. The cystic duct was not dilated. The gallbladder was not dilated. The wall was not thickened. The gallbladder was only very mildly distended. TECHNIQUE: The patient was given a general anesthetic and the area was prepped and draped in usual sterile fashion. Transverse incision was made below the umbilicus, carried down through the subcutaneous tissue to the fascia which was grasped with 2 Donna clamps and incised between. The peritoneum was identified, incised, and the introducer was placed bluntly. The abdomen was then insufflated to a pressure of 15 mmHg with carbon dioxide. The upper midline, midclavicular and anterior axillary introducers were placed under direct vision through small skin incisions. Traction was placed on the gallbladder and beginning on the lateral side, the infundibulum was opened. The gallbladder was peeled away from the liver on that lateral side. Then working over the anterior surface of the infundibulum, the peritoneum was peeled down towards the common bile duct and the triangle of Calot was entered. The gallbladder was dissected away from the liver on the medial side. Further dissection of some connective tissue and some lymphatics exposed the cystic duct. It allowed me to identify the cystic duct gallbladder junction. There were some additional lymphatics on the medial side that were dissected away and I was able to establish a plane behind the cystic duct, that allowed me to confirm the position of the cystic duct gallbladder junction. Three clips were placed on the proximal cystic duct, one near the junction with the gallbladder and it was divided. Further dissection was then carried out in the triangle of Calot. There was 1 large lymphatic, it was clamped and divided. The cystic artery was then identified, isolated, clamped twice proximally and once near the gallbladder and divided. The gallbladder was peeled off the liver bed and in doing so, there was a small vessel on the posterior side that was clamped and divided as well. The transection of the attachments of the gallbladder to the liver were then completed and the gallbladder was placed into an Endobag and brought out through the upper midline incision. I had to open the gallbladder and remove the bile in order to extract it within the bag, but that was able to be accomplished. The introducer was replaced. The liver edge was elevated. The subdiaphragmatic and subhepatic spaces were irrigated and the irrigation removed. The gallbladder bed of the liver was inspected and there was no bleeding. The previously placed clips were inspected and were intact. The subdiaphragmatic and subhepatic spaces were again irrigated and that was removed. The gas was allowed to escape and the introducers were removed. The fascia of the umbilical and upper midline introducer sites were closed with interrupted 0 Vicryl and skin of all the incisions was closed with 4-0 Monocryl in either an interrupted or running subcuticular fashion. The skin was anesthetized with 0.5% Marcaine. The skin of all the incisions was then cleansed, dried, benzoin placed, Steri-Strips applied. The estimated blood loss was 5 mL. Sponge, needle and instrument counts were correct prior to closure. The patient tolerated the surgical procedure without complication and was transferred to recovery. I attest to the content of the Intraoperative Record and any orders documented therein. Any exceptio ns are noted below.
[2016-12-18] MEDS ORDERED: ONDANSETRON INJ 2 MG/ML 2 ML VIAL IV PRN (15:00)
[2016-12-18] MEDS ORDERED: ATROPINE SULFATE 0.1 MG/ML 5ML SYR IV PRN (15:00)
[2016-12-18] MEDS: HYDROmorphone INJ 2 MG/ML SYR/VIAL IV PRN ×3 (15:00→15:13)
[2016-12-18] MEDS ORDERED: PROMETHAZINE HCL INJ 12.5 MG in SODIUM CHLORIDE 0.9% 50ML 50 ML IV PRN (15:00)
[2016-12-18] MEDS ORDERED: LABETALOL HCL IV 5 MG/ML 20ML IV PRN (15:00)
--- NOTE | 2016-12-18 15:29 | Anesthesiology Progress Note ---
Anesthesia Post Op Note Date & Time Dec 18, 2016 at 15:28 Vital Signs Vital Signs Past 12 Hours Date Time Temp Pulse Resp B/P Pulse Ox O2 Delivery O2 Flow Rate FiO2 12/18/16 15:10 76 13 159/99 96 Nasal Cannula 2 12/18/16 15:00 76 14 173/102 97 Nasal Cannula 2 12/18/16 14:50 78 14 168/100 100 Mask 9 12/18/16 14:40 83 16 163/96 98 Diffusion Mask 9 12/18/16 14:30 36.4 96 16 160/94 98 Diffusion Mask 9 12/18/16 07:35 37.1 77 18 155/83 96 Room Air 12/18/16 07:15 Room Air Notes Mental Status: alert / awake / arousable, participated in evaluation Pt Amnestic to Procedure: Yes Nausea / Vomiting: adequately controlled Pain: adequately controlled Airway Patency, RR, SpO2: stable & adequate BP & HR: stable & adequate Hydration State: stable & adequate Anesthetic Complications: no major complications apparent
[2016-12-18] MEDS ORDERED: AMPICILLIN/SULBACTAM SOD INJ 3,000 MG in SODIUM CHLORIDE 0.9% 100ML 100 ML IV SCH (16:00)
[2016-12-18] MEDS: HYDROmorphone INJ 1 MG/ML SYR IV PRN ×3 (16:22→23:21)
[2016-12-18] MEDS ORDERED: HydrALAZINE HCL 20 MG/ML VIAL IV. PRN (17:15)
[2016-12-18] MEDS: MIRTAZAPINE TAB 15 MG TAB PO SCH (21:30)
[2016-12-18] MEDS: TRAZODONE HCL 50 MG TAB PO SCH (21:30)
[2016-12-18] MEDS: LISINOPRIL 40 MG TAB PO SCH (21:32)
[2016-12-18] MEDS: OXYCODONE/ACETAMINOPHEN 5-325 TAB PO PRN (21:36)
[2016-12-18] MEDS: CALCIUM CARBONATE 500 MG CHEWABLE PO SCH (22:11)
[2016-12-19] VITALS (23 sets, daily range): BP systolic 121–160; BP diastolic 71–95; PULSE 62–86; TEMP 36.7–37.3; O2SAT 92–96
[2016-12-19] MEDS ORDERED: NURSING VERBAL MED ORDER ONE
[2016-12-19] MEDS: TRAMADOL HCL 50 MG TAB PO PRN (03:13)
[2016-12-19] MEDS: ACETAMINOPHEN 325 MG TAB PO PRN (03:13)
[2016-12-19] MEDS: OXYCODONE/ACETAMINOPHEN 5-325 TAB PO PRN ×2 (06:27→13:30)
[2016-12-19 07:17] LABS: BUN/CREATININE RATIO 6.1 (10-20); CALCIUM 8.5 mg/dl (8.5-10.1); POTASSIUM 5.9 mmol/L (3.5-5.1)
[2016-12-19] MEDS: CALCIUM ACETATE 667MG GELCAP PO SCH ×4 (07:50→13:25)
[2016-12-19] MEDS: ESCITALOPRAM OXALATE 20 MG TAB PO SCH (07:52)
[2016-12-19] MEDS: INSULIN ASPART 100 UNITS/ML 3 ML PEN SC SCH ×2 (07:55→12:00)
[2016-12-19] MEDS ORDERED: IRON SUCROSE INJ 100 MG in SYRINGE 0 ML IV ONE (08:00)
[2016-12-19] MEDS ORDERED: EPOETIN ALFA INJ 14,000 UNITS in SYRINGE 0 ML IV. SCH (08:00)
[2016-12-19] MEDS ORDERED: EPOETIN ALFA 10,000 UNITS/ML VIAL IV. ONE (08:00)
[2016-12-19] MEDS: HYDROmorphone INJ 1 MG/ML SYR IV PRN ×2 (08:48→15:56)
[2016-12-19] MEDS: FAMOTIDINE 20 MG TAB PO SCH (08:49)
--- NOTE | 2016-12-19 09:28 | Surgery Progress Note ---
Surgery Progress Note Date of Service Dec 19, 2016. Subjective Post OP Day: 1 (POD # 1 s/p laparoscopic cholecystectomy ) + diet (regular diet), + feeling well, + pain controlled, No SOB, No chest pain , No complaints, No nausea, No vomiting Objective Vital Signs: Date Time Temp Pulse Resp B/P Pulse Ox O2 Delivery O2 Flow Rate FiO2 12/19/16 07:12 36.8 66 17 139/84 95 Room Air 12/19/16 06:29 36.9 62 16 149/95 96 Room Air 12/19/16 03:13 36.8 69 16 154/95 95 Room Air 12/18/16 23:45 95 Room Air 12/18/16 23:45 Room Air 12/18/16 23:05 36.8 63 18 150/93 99 Nasal Cannula 2.0 12/18/16 21:29 64 154/97 12/18/16 19:40 37.0 63 16 147/94 99 Nasal Cannula 2.0 12/18/16 18:39 66 18 162/94 12/18/16 17:42 160/91 12/18/16 16:43 170/95 12/18/16 16:00 Nasal Cannula 2.0 12/18/16 15:50 36.9 66 14 160/104 98 Nasal Cannula 2.0 12/18/16 15:45 72 13 163/93 97 Nasal Cannula 2 12/18/16 15:30 71 13 171/97 97 Nasal Cannula 2 12/18/16 15:20 36.9 71 12 164/91 97 Nasal Cannula 2 12/18/16 15:10 76 13 159/99 96 Nasal Cannula 2 12/18/16 15:00 76 14 173/102 97 Nasal Cannula 2 12/18/16 14:50 78 14 168/100 100 Mask 9 12/18/16 14:40 83 16 163/96 98 Diffusion Mask 9 12/18/16 14:30 36.4 96 16 160/94 98 Diffusion Mask 9 General Appearance: WD/WN, no apparent distress Head: normocephalic, atraumatic Neck: trachea midline Respiratory/Chest: lungs clear, normal breath sounds, no respiratory distress, no accessory muscle use Cardiovascular: regular rate, rhythm, no murmur Abdomen: non distended, soft, + tenderness (appropriate post op at incision sites) Incision(s): clean, dry, intact, no erythema, no drainage Laboratory Results: Results Past 24 Hours Test 12/18/16 11:48 12/18/16 14:49 12/18/16 17:06 12/18/16 20:43 Range/Units Bedside Glucose 80 89 107 200 70-90 mg/dl Test 12/18/16 23:35 12/19/16 06:07 12/19/16 06:24 Range/Units Bedside Glucose 181 122 70-90 mg/dl Sodium Level 132 136-145 mmol/L Potassium Level 5.9 3.5-5.1 mmol/L Chloride Level 96 98-107 mmol/L Carbon Dioxide Level 22 21-32 mmol/L Anion Gap 14.0 3-11 mmol/L Blood Urea Nitrogen 67 7-18 mg/dl Creatinine 11.00 0.60-1.20 mg/dl Est Creatinine Clear Calc Drug Dose 8.3 ml/min Estimated GFR () 4.8 Estimated GFR (Non- 4.1 BUN/Creatinine Ratio 6.1 10-20 Random Glucose 125 70-99 mg/dl Calcium Level 8.5 8.5-10.1 mg/dl Assessment & Plan POD # 1 s/p Laparoscopic cholecystectomy - Vitals stable - adequate urine output - pre-op pain resolved, post op pain controlled - tolerated regular diet ESRD on hemodialysis -going for dialysis today Plan: Will see how patient is feeling this afternoon after dialysis. If still doing well she can be discharged from surgical standpoint. Encourage ambulation in the halls Encourage PO pain meds, No IV pain meds for anticipated discharge Will need follow-up in surgical office in [address] Snow has seen and examined patient, agrees with assessment and plan. Chronic Cholecystitis RUQ abdominal pain Gallbladder wall thickening - vitals stable - no leukocytosis - afebrile - Pain 10/10, RUQ without pain medication -HIDA scan showing delayed gallbladder filling which is consistent with chronic cholecystitis Plan: Given patients HIDA scan, US, and CT scan results with continued RUQ abdominal pain discussed the option of laparoscopic cholecystectomy with the patient. She states she has been having RUQ abdominal pain off and on after eating spicy/ fatty/greasy meals for the past 4 months. States she is interested in having the surgery as she has been having these symptoms for some time now. Discussed the procedure and risks including but not limited to bleeding, infection, injury to surrounding structures, bile leak, or bile duct injury. Patient understands and informed consent obtained. Discussed this patient with Dr. Snow who is in agreement with above stated findings and treatment plan.
[2016-12-19] MEDS: CARVEDILOL 3.125 MG TAB PO SCH (13:24)
--- NOTE | 2016-12-19 14:08 | Anesthesiology Progress Note ---
Anesthesia Post Op Note Date & Time Dec 19, 2016 at 14:07 Vital Signs Pain Intensity: 10.0 Vital Signs Past 12 Hours Date Time Temp Pulse Resp B/P Pulse Ox O2 Delivery O2 Flow Rate FiO2 12/19/16 13:27 36.7 86 18 160/91 92 Room Air 12/19/16 12:30 65 130/83 12/19/16 12:15 65 147/89 12/19/16 12:00 67 129/80 12/19/16 11:45 68 142/81 12/19/16 11:30 65 129/88 12/19/16 11:15 66 146/90 12/19/16 11:00 66 140/88 12/19/16 10:45 66 121/71 12/19/16 10:30 69 130/90 12/19/16 10:15 69 137/91 12/19/16 10:00 68 133/87 12/19/16 09:45 68 136/83 12/19/16 09:30 68 136/90 12/19/16 09:15 65 135/89 12/19/16 09:07 66 139/89 12/19/16 08:00 Room Air 12/19/16 07:12 36.8 66 17 139/84 95 Room Air 12/19/16 06:29 36.9 62 16 149/95 96 Room Air 12/19/16 03:13 36.8 69 16 154/95 95 Room Air Notes Mental Status: alert / awake / arousable, participated in evaluation Pt Amnestic to Procedure: Yes Nausea / Vomiting: adequately controlled Pain: adequately controlled Airway Patency, RR, SpO2: stable & adequate BP & HR: stable & adequate Hydration State: stable & adequate Anesthetic Complications: no major complications apparent
--- NOTE | 2016-12-19 15:06 | Discharge Instructions ---
Discharge Instructions Date of Service Dec 19, 2016. Admission Reason for Admission: Epigastric Abd Pain Discharge Discharge Diagnosis / Problem: cholecystitis s/p lap cholecystectomy Discharge Goals Goal(s): Decrease discomfort, Improve function Activity Recommendations Activity Limitations: resume your previous activity . Instructions / Follow-Up Instructions / Follow-Up FOLLOWUP WITH FAMILY DOCTOR ON December AT 11:05AM FOLLOWUP WITH SURGERY IN 2 WEEKS. NO HEAVY LIFTING(NOT MORE THAN 5 POUNDS) OR STRENUOUS ACTIVITY UNTIL SEEN BY SURGERY Current Hospital Diet Patient's current hospital diet: Diabetes Type 1 Diet Discharge Diet Recommended Diet: Renal Diet Procedures Procedures Performed: Laparoscopic Cholecystectomy Pending Studies Studies pending at discharge: no Medical Emergencies . Who to Call and When: Medical Emergencies: If at any time you feel your situation is an emergency, please call 911 immediately. . Non-Emergent Contact Non-Emergency issues call your: Primary Care Provider . . "Provider Documentation" section prepared by Daquan Morgan. . VTE Core Measure Inpt VTE Proph given/why not?: SCD's
--- NOTE | 2016-12-19 15:15 | Discharge Instructions ---
Discharge Instructions Date of Service Dec 19, 2016. Admission Reason for Admission: Epigastric Abd Pain Discharge Discharge Diagnosis / Problem: Acute cholecystitis, s/p laparoscopic cholecystectomy Discharge Goals Goal(s): Decrease discomfort Activity Recommendations Activity Limitations: as noted below no heavy lifting over 10 pounds for 2 weeks no strenuous activity or alot of bending over walking is encouraged and light activity no driving while taking narcotic pain medication . Instructions / Follow-Up Instructions / Follow-Up You may shower, no submerging incisions underwater for 2 weeks Do NOT take Tylenol while you are taking Percocet Follow-up with Dr. Snow or Tami Hardy PA-C in 2-3 weeks Call office at [phone] to make an appointment Current Hospital Diet Patient's current hospital diet: Diabetes Type 1 Diet Discharge Diet Recommended Diet: Regular Diet, Diabetes Type 1 Diet Procedures Procedures Performed: Laparoscopic Cholecystectomy Pending Studies Studies pending at discharge: no Medical Emergencies . Who to Call and When: Medical Emergencies: If at any time you feel your situation is an emergency, please call 911 immediately. . Non-Emergent Contact Non-Emergency issues call your: Primary Care Provider, Surgeon Call Non-Emergent contact if: you have a fever, temperature is above 101.5, your pain is not controlled, your pain is worsening, wound has increased drainage, wound has increased redness, wound has increased pain . "Provider Documentation" section prepared by Tami Hardy. . VTE Core Measure Inpt VTE Proph given/why not?: SCD's [place] Drug Monitoring Program Search Results: patient reviewed within database, no issues identified
[2016-12-19] MEDS ORDERED: OXYC-57 PO (15:18)
--- NOTE | 2016-12-19 15:23 | Dialysis Progress Note ---
Nephrology Dialysis Note Date of Service: Dec 19, 2016. Subjective seen on rounds this am 0930 on HD; tolerated surgery well; no n/v. not dyspneic ; abd pain controlled; uneventful lap dawit yesterday Objective Date Time Temp Pulse Resp B/P Pulse Ox O2 Delivery O2 Flow Rate FiO2 12/19/16 15:06 37.1 71 16 136/87 96 Room Air 12/19/16 13:27 36.7 86 18 160/91 92 Room Air 12/19/16 13:10 36.7 68 139/90 12/19/16 12:30 65 130/83 12/19/16 12:15 65 147/89 12/19/16 12:00 67 129/80 12/19/16 11:45 68 142/81 12/19/16 11:30 65 129/88 12/19/16 11:15 66 146/90 12/19/16 11:00 66 140/88 12/19/16 10:45 66 121/71 12/19/16 10:30 69 130/90 12/19/16 10:15 69 137/91 12/19/16 10:00 68 133/87 12/19/16 09:45 68 136/83 12/19/16 09:30 68 136/90 12/19/16 09:15 65 135/89 12/19/16 09:07 66 139/89 12/19/16 08:00 Room Air 12/19/16 07:12 36.8 66 17 139/84 95 Room Air 12/19/16 06:29 36.9 62 16 149/95 96 Room Air 12/19/16 03:13 36.8 69 16 154/95 95 Room Air 12/18/16 23:45 95 Room Air 12/18/16 23:45 Room Air 12/18/16 23:05 36.8 63 18 150/93 99 Nasal Cannula 2.0 12/18/16 21:29 64 154/97 12/18/16 19:40 37.0 63 16 147/94 99 Nasal Cannula 2.0 12/18/16 18:39 66 18 162/94 12/18/16 17:42 160/91 12/18/16 16:43 170/95 12/18/16 16:00 Nasal Cannula 2.0 12/18/16 15:50 36.9 66 14 160/104 98 Nasal Cannula 2.0 12/18/16 15:45 72 13 163/93 97 Nasal Cannula 2 12/18/16 15:30 71 13 171/97 97 Nasal Cannula 2 12/18/16 15:20 36.9 71 12 164/91 97 Nasal Cannula 2 Physical Exam: General Appearance: WD/WN, no apparent distress, + obese (on RA, tired) Eyes: EOMI ENT: hearing grossly normal Neck: supple Respiratory/Chest: lungs clear, no respiratory distress, no accessory muscle use, + decreased breath sounds Cardiovascular: regular rate, rhythm Abdomen: normal bowel sounds, soft, no organomegaly, no pulsatile mass Extremities: normal range of motion, non-tender, + pertinent finding (avf + t/b ) Neurologic/Psych: alert, normal mood/affect, oriented x 3 Skin: no jaundice, warm/dry, no rash, + pallor Current Inpatient Medications Medications (Trade) Dose Ordered Sig/Sachin Route Start Time Stop Time Status Last Admin Dose Admin Acetaminophen (Tylenol Tab) 650 mg Q4H PRN PO 12/17/16 00:30 01/16/17 00:29 12/19/16 03:13 650 MG Glucose (Glucose 40% Gel) 15-30 GRAMS 15 GRAMS... UD PRN PO 12/17/16 00:30 01/16/17 00:29 Glucose (Glucose Chew Tab) 4-8 Tablets 4 Tabl... UD PRN PO 12/17/16 00:30 01/16/17 00:29 12/18/16 06:27 4 TABS Dextrose (Dextrose 50% 50ML Syringe) 25-50ML OF 50% DW IV FOR... UD PRN IV 12/17/16 00:30 01/16/17 00:29 Glucagon (Glucagon Inj) 1 mg UD PRN SQ 12/17/16 00:30 01/16/17 00:29 Ondansetron HCl (Zofran Inj) 4 mg Q6H PRN IV 12/17/16 00:30 01/16/17 00:29 Tramadol HCl not relieved by tylenol @ Q6H PRN PO 12/17/16 00:30 01/16/17 00:29 12/19/16 03:13 50 MG Promethazine HCl/ Sodium Chloride (Phenergan Inj/ Nss 50ml) 50.5 ml @ 204 mls/hr Q6H PRN IV 12/17/16 00:30 01/16/17 00:29 Calcium Acetate (Phoslo Cap) 1,334 mg PC PO 12/17/16 09:15 01/16/17 09:14 12/19/16 13:25 1,334 MG Calcium Acetate (Phoslo Cap) 1,334 mg AC PO 12/17/16 08:00 01/16/17 07:59 12/19/16 13:25 1,334 MG Calcium Acetate (Phoslo Cap) 1,334 mg TIDM PRN PO 12/17/16 08:30 01/16/17 08:29 12/18/16 23:41 1,334 MG Calcium Carbonate (Tums Chew Tab) 1,500 mg HS PO 12/17/16 21:00 01/16/17 20:59 12/18/16 22:11 1,500 MG Carvedilol (Coreg Tab) 3.125 mg BID PO 12/17/16 09:00 01/16/17 08:59 12/19/16 13:24 3.125 MG Colchicine (Colchicine Tab) 0.3 mg MoFr@0900 PO 12/17/16 09:00 01/16/17 08:59 Escitalopram Oxalate (Lexapro Tab) 20 mg QAM PO 12/17/16 09:00 01/16/17 08:59 12/19/16 07:52 20 MG Famotidine (Pepcid Tab) 40 mg QAM PO 12/17/16 09:00 01/16/17 08:59 12/19/16 08:49 40 MG Mirtazapine (Remeron Tab) 30 mg HS PO 12/17/16 21:00 01/16/17 20:59 12/18/16 21:30 30 MG Trazodone HCl (Desyrel Tab) 50 mg HS PO 12/17/16 21:00 01/16/17 20:59 12/18/16 21:30 50 MG Miscellaneous (Iv Fluids Completed) 1 ea PRN PRN N/A 12/17/16 00:45 12/17/17 00:44 Diphenhydramine HCl (Benadryl Cap) 25 mg Q6H PRN PO 12/17/16 01:15 01/16/17 01:14 12/19/16 11:55 25 MG Lisinopril (Zestril Tab) 40 mg HS PO 12/17/16 21:00 01/16/17 20:59 12/18/16 21:32 40 MG Ampicillin Sodium/ Sulbactam Sodium 1 ea 1 ea UD PRN N/A 12/18/16 01:28 01/17/17 01:27 Ampicillin Sodium/ Sulbactam Sodium/ Sodium Chloride (Unasyn Inj/Nss 100ml) 108 ml @ 216 mls/hr Q24H IV 12/18/16 16:00 12/28/16 15:59 12/18/16 16:21 216 MLS/HR Hydromorphone HCl (Dilaudid Inj) 1 mg Q2H PRN IV 12/18/16 14:30 01/01/17 14:29 12/19/16 08:48 1 MG Oxycodone/ Acetaminophen (Percocet 5-325mg Tab) 1 tab Q4H PRN PO 12/18/16 14:30 01/01/17 14:29 12/19/16 13:30 1 TAB Hydralazine HCl (HydrALAZINE INJ) 5 mg Q6 PRN IV. 12/18/16 17:15 01/17/17 17:14 Insulin Aspart (novoLOG ASPART) SLIDING SCALE If C... ACHS SC 12/19/16 08:00 01/18/17 07:59 Last 24 Hours Test 12/18/16 17:06 12/18/16 20:43 12/18/16 23:35 12/19/16 06:07 Bedside Glucose 107 mg/dl 200 mg/dl 181 mg/dl Sodium Level 132 mmol/L Potassium Level 5.9 mmol/L Chloride Level 96 mmol/L Carbon Dioxide Level 22 mmol/L Anion Gap 14.0 mmol/L Blood Urea Nitrogen 67 mg/dl Creatinine 11.00 mg/dl Est Creatinine Clear Calc Drug Dose 8.3 ml/min Estimated GFR () 4.8 Estimated GFR (Non- 4.1 BUN/Creatinine Ratio 6.1 Random Glucose 125 mg/dl Calcium Level 8.5 mg/dl Test 12/19/16 06:24 12/19/16 13:24 Bedside Glucose 122 mg/dl 103 mg/dl Assessment & Plan 31 y/o F w/ ESRD s/p failed renal transplant on MWF HD, anxiety, active tobacco abuse, recent pericarditis admission a/w sudden onset ruq/epigastric pain w/ possible acute / probably chronic cholecystitis s/p lap dawit 12/18 ESRD -routine HD today; agree w/ continuing outpt binders Anemia of esrd -procrit as indicated w/ HD; hgb at least every 48 hrs, better daily HTN -to improve w/ HD and pain control Epigastric/RUQ pain/ possible cholecystitis -s/p cholecystectomy Appreciate consult; will follow with you. Care coordinated w/ Dr Morgan
--- NOTE | 2016-12-19 17:56 | Progress Note ---
Internal Med Progress Note Date of Service: Dec 19, 2016. Provider Documentation: SUBJECTIVE: no pain tolerating diet no fevers ok to go home OBJECTIVE: Vital Signs-as noted below Exam: General-Alert and oriented ENT-normal hearing Neck-no neck masses Lungs-cta b/l no wheezing or crackles Heart-s1 and s2 heard regular rate and rhythm no murmurs Abdomen-soft bowel sounds present s/p lap dawit-incision sites no drainage no distension Extremities-no edema no erythema Neuro-Alert and oriented moves extremities Lab data as noted below. ASSESSMENT & PLAN: Patient is a 31 y/o female with ESRD non-compliant with dialysis who presents for evaluation of abdominal pain. Abdominal pain - CT a/p and RUQ ultrasound equivocal and findings could also be due to volume ( patient is noncompliant with going to HD) HIDA scan -cholecystitis chronic? s/p lap cholecystectomy 12/18/16 tolerating diet discharged to f./u with pcp and surgery ESRD on HD Nephrology consulted for HD while inpatient HTN on carvedilol and lisinopril will monitor discharged home Vital Signs: Date Time Temp Pulse Resp B/P Pulse Ox O2 Delivery O2 Flow Rate FiO2 12/19/16 16:49 37.1 71 16 96 Room Air 12/19/16 15:06 37.1 71 16 136/87 96 Room Air 12/19/16 13:27 36.7 86 18 160/91 92 Room Air 12/19/16 13:10 36.7 68 139/90 12/19/16 12:30 65 130/83 12/19/16 12:15 65 147/89 12/19/16 12:00 67 129/80 12/19/16 11:45 68 142/81 12/19/16 11:30 65 129/88 12/19/16 11:15 66 146/90 12/19/16 11:00 66 140/88 12/19/16 10:45 66 121/71 12/19/16 10:30 69 130/90 12/19/16 10:15 69 137/91 12/19/16 10:00 68 133/87 12/19/16 09:45 68 136/83 12/19/16 09:30 68 136/90 12/19/16 09:15 65 135/89 12/19/16 09:07 66 139/89 12/19/16 08:57 37.3 68 143/92 12/19/16 08:00 Room Air 12/19/16 07:12 36.8 66 17 139/84 95 Room Air 12/19/16 06:29 36.9 62 16 149/95 96 Room Air 12/19/16 03:13 36.8 69 16 154/95 95 Room Air 12/18/16 23:45 95 Room Air 12/18/16 23:45 Room Air 12/18/16 23:05 36.8 63 18 150/93 99 Nasal Cannula 2.0 12/18/16 21:29 64 154/97 12/18/16 19:40 37.0 63 16 147/94 99 Nasal Cannula 2.0 12/18/16 18:39 66 18 162/94 Lab Results: Results Past 24 Hours Test 12/18/16 20:43 12/18/16 23:35 12/19/16 06:07 12/19/16 06:24 Range/Units Bedside Glucose 200 181 122 70-90 mg/dl Sodium Level 132 136-145 mmol/L Potassium Level 5.9 3.5-5.1 mmol/L Chloride Level 96 98-107 mmol/L Carbon Dioxide Level 22 21-32 mmol/L Anion Gap 14.0 3-11 mmol/L Blood Urea Nitrogen 67 7-18 mg/dl Creatinine 11.00 0.60-1.20 mg/dl Est Creatinine Clear Calc Drug Dose 8.3 ml/min Estimated GFR () 4.8 Estimated GFR (Non- 4.1 BUN/Creatinine Ratio 6.1 10-20 Random Glucose 125 70-99 mg/dl Calcium Level 8.5 8.5-10.1 mg/dl Test 12/19/16 13:24 12/19/16 17:03 Range/Units Bedside Glucose 103 123 70-90 mg/dl
--- NOTE | 2016-12-19 18:22 | Discharge Summary ---
Discharge Summary Date of Service Dec 19, 2016. Discharge Summary Admission Date: Dec 17, 2016 at 21:19 Discharge Date: Dec 19, 2016 Discharge Disposition: Home Principal Diagnosis: CHOLECYSTITIS S/P LAP CHOLECYSTECTOMY Secondary Diagnoses/Problems: end-stage renal disease on hemodialysis, history of FSGS sp rejected kidney transplant, HTN, DM2, diet-controlled, chronic anemia (baseline hemoglobin of 8), ongoing tobacco abuse Procedures: CT ABD/PELVIS: 1. Abnormal appearing gallbladder which appears to demonstrate a diffusely thickened/edematous wall and associated adjacent pericholecystic fluid/fat stranding. This also mild central periportal edema. Therefore, this could be due to cardiac congestion, underlying hepatic pathology, or acute cholecystitis. Clinical correlation recommended. 2. Pulmonary edema, cardiomegaly, and trace bilateral pleural effusions. 3. No definite bowel wall thickening or obstruction. 4. Normal appendix. 5. No change in the right lower quadrant renal transplant. Atrophic [place] kidneys are also identified. 6. Colonic diverticulosis. GALL BLADDER US:1. Moderate gallbladder wall thickening, a nonspecific finding. Small amount of pericholecystic fluid. No gallstones. 2. Atrophic, echogenic right kidney. 3. No biliary ductal dilatation. HIDA SCAN: 1. Delayed visualization of the gallbladder, which was visualized at 65 minutes following Dilaudid administration. This indicates patency of the cystic duct. 2. Delayed visualization of the gallbladder suggests chronic cholecystitis, and both the CT and ultrasound findings remain concerning. Surgical consultation is advised. Consultations: General surgery Nephrology Medication Reconciliation New Medications: Oxycodone/Acetaminophen 5MG/325MG (Percocet 5MG/325MG) Tab 1 TABLET PO Q4H PRN for Pain, #18 TAB Continued Medications: Albuterol Hfa (Ventolin Hfa) 200 Puffs/77404 Mcg Aers 2 PUFFS INH QID PRN for Allergy Symptoms, INHALER Calcium Acetate (Phoslo 667 Mg) 667 Mg Cap 1334 MG PO WITH SNACKS, CAP 2 CAPSULES WITH SNACKS Calcium Acetate (Phoslo 667 Mg) 667 Mg Cap 1334 MG PO BEFORE MEALS, CAP Calcium Acetate (Phoslo 667 Mg) 667 Mg Cap 1334 MG PO AFTER MEALS, CAP Calcium Carbonate (Tums) 500 Mg Chew 1500 MG PO HS Carvedilol (Coreg) 3.125 Mg Tab 3.125 MG PO BID Colchicine (Colchicine) 0.6 Mg Tab 0.3 MG PO 2XWK TAKE HALF A TABLET (0.3 MG) EVERY SATURDAY AND SATURDAY AFTER DIALYSIS Escitalopram Oxalate (Escitalopram Oxalate) 20 Mg Tab 20 MG PO QAM Famotidine (Pepcid) 40 Mg Tab 40 MG PO QAM, TAB Lisinopril (Lisinopril) 40 Mg Tab 40 MG PO HS Mirtazapine (Remeron) 30 Mg Tab 30 MG PO HS Trazodone Hcl (Trazodone) 50 Mg Tab 50 MG PO HS, TAB Admission Information HPI (per Admitting provider): Medical history is significant for end-stage renal disease on hemodialysis, history of FSGS sp rejected kidney transplant, HTN, DM2, diet-controlled, chronic anemia (baseline hemoglobin of 8), ongoing tobacco abuse. Recent confinement last month for pericarditis. Px discharged on steroids and colchicine course for one month. Yesterday morning, the patient woke up with left flank pain. No dysuria. After lunch, the patient noted sharp upper abdominal discomfort. No nausea, no vomiting. No fever, no chills. Worse with moving around. Intractable pain in the Emergency Room. Physical Exam (per Admitting): VITAL SIGNS: Blood pressure was noted to be 170/90, pulse rate 87, RR 18 temp 36.6 O2 sats 98 on room air. GENERAL: Noted to be obese, slightly uncomfortable, in no respiratory distress. SKIN: Sallow. HEENT: Pale palpebral conjunctivae. Dry mucosa. NECK: Short neck. LUNGS: Decreased breath sounds. HEART: Regular rate and rhythm. ABDOMEN: Dias sign EXTREMITIES: Minimal LE edema. no tenderness NEUROLOGIC: No gross focality. Hospital Course Patient is a 31 y/o female with ESRD non-compliant with dialysis who presents for evaluation of abdominal pain. Abdominal pain - CT a/p and RUQ ultrasound equivocal and findings could also be due to volume ( patient is noncompliant with going to HD) HIDA scan -cholecystitis chronic? s/p lap cholecystectomy 12/18/16 tolerating diet discharged to f./u with pcp and surgery ESRD on HD Nephrology consulted for HD while inpatient HTN on carvedilol and lisinopril will monitor discharged home Total time spent on discharge = 35MINUTES This includes examination of the patient, discharge planning, medication reconciliation, and communication with other providers. Discharge Instructions Discharge Instructions Date of Service Dec 19, 2016. Admission Reason for Admission: Epigastric Abd Pain Discharge Discharge Diagnosis / Problem: cholecystitis s/p lap cholecystectomy Discharge Goals Goal(s): Decrease discomfort, Improve function Activity Recommendations Activity Limitations: resume your previous activity . Instructions / Follow-Up Instructions / Follow-Up FOLLOWUP WITH FAMILY DOCTOR ON December AT 11:05AM FOLLOWUP WITH SURGERY IN 2 WEEKS. NO HEAVY LIFTING(NOT MORE THAN 5 POUNDS) OR STRENUOUS ACTIVITY UNTIL SEEN BY SURGERY Current Hospital Diet Patient's current hospital diet: Diabetes Type 1 Diet Discharge Diet Recommended Diet: Renal Diet Procedures Procedures Performed: Laparoscopic Cholecystectomy Pending Studies Studies pending at discharge: no Medical Emergencies . Who to Call and When: Medical Emergencies: If at any time you feel your situation is an emergency, please call 911 immediately. . Non-Emergent Contact Non-Emergency issues call your: Primary Care Provider . . "Provider Documentation" section prepared by Daquan Morgan. . VTE Core Measure Inpt VTE Proph given/why not?: SCD's
[2017-01-01] MEDS ORDERED: FAMO40TA6 PO (21:28)
[2017-01-25] MEDS ORDERED: CRG625 PO (11:09)
[2017-02-06] MEDS ORDERED: LISI40TA PO (07:33)
[2017-02-12] MEDS ORDERED: AMOX875T PO (12:45)
[2017-02-14] MEDS ORDERED: DOXY100C76 PO (15:33)
[2017-02-21] MEDS ORDERED: OXYC-57 PO (15:28)
[2017-02-28] MEDS ORDERED: AMLO-114 PO (08:43)
[2017-03-06] MEDS ORDERED: CARV3.122 PO (10:28)
[2017-03-08] MEDS ORDERED: ZFRODT4HP PO (15:53)
[2017-03-20] MEDS ORDERED: DOXY100T PO (14:35)
[2017-03-20] MEDS ORDERED: TOBR0.3S4 OPL (14:35)
[2017-04-24] MEDS ORDERED: CMD/25 PO (12:00)
[2017-04-26] MEDS ORDERED: CMD3 PO (16:37)
[2017-04-26] MEDS ORDERED: LISI20TA3 PO (16:37)
[2017-05-15] MEDS ORDERED: VNTHFA/IN INH (12:28)
[2017-05-15] MEDS ORDERED: LISI-725 PO (13:43)
[2017-05-15] MEDS ORDERED: CALC500C3 PO (13:50)
[2017-05-15] MEDS ORDERED: NRV/5 PO (15:17)
[2017-05-15] MEDS ORDERED: CRG125 PO (15:17)
[2017-05-15] MEDS ORDERED: BENZ100C7 PO (15:22)
[2017-05-15] MEDS ORDERED: FLUT0.15 NAE (15:33)
[2017-05-15] MEDS ORDERED: CALC0.5C PO (18:14)
[2017-05-15] MEDS ORDERED: MIRT30TA3 PO (19:24)
[2017-05-15] MEDS ORDERED: CALC667C4 PO ×2 (19:56→21:12)
[2017-05-15] MEDS ORDERED: TRAZ50TA35 PO (19:56)
[2017-05-15] MEDS ORDERED: LXP/20 PO (21:08)
[2017-05-15] MEDS ORDERED: FAMO40TA6 PO (23:12)
[2017-05-17] MEDS ORDERED: CRG25 PO (14:53)
[2017-05-21] MEDS ORDERED: APR25 PO (00:24)
[2017-05-21] MEDS ORDERED: ATV1 PO (15:28)
[2017-05-21] MEDS ORDERED: APR50 PO (15:28)
[2017-05-21] MEDS ORDERED: ativan PO (16:06)
[2017-06-11] MEDS ORDERED: LORA-741 PO (07:51)
[2017-06-11] MEDS ORDERED: VORT1TAB PO (07:51)
== END 2016-12-19 17:30 | disposition home or self-care (01) | DRG 417 ==
LOC: ENRESERVDT → ENRESERVTM → C.EDB 20:06 → C.MSW 12-17 00:17 → OBSVTOIN 12-17 21:19
PROVIDERS: ADMIT Internal Medicine; ATTEND Internal Medicine
PROC: 0FT44ZZ Resection of Gallbladder, Percutaneous Endoscopic Approach (ICD-10-PCS; principal; 2016-12-18 13:00)
DX: K81.1 Chronic cholecystitis (principal); N18.6 End stage renal disease; Z94.0 Kidney transplant status; I12.0 Hypertensive chronic kidney disease with stage 5 chronic kidney disease or end stage renal disease; I31.9 Disease of pericardium, unspecified; Z91.15 Patient's noncompliance with renal dialysis; D69.6 Thrombocytopenia, unspecified; I34.0 Nonrheumatic mitral (valve) insufficiency; D63.1 Anemia in chronic kidney disease; E11.22 Type 2 diabetes mellitus with diabetic chronic kidney disease; K21.9 Gastro-esophageal reflux disease without esophagitis; J45.909 Unspecified asthma, uncomplicated; F41.9 Anxiety disorder, unspecified; F32.9 Major depressive disorder, single episode, unspecified; F17.210 Nicotine dependence, cigarettes, uncomplicated; E66.9 Obesity, unspecified; Z68.32 Body mass index [BMI] 32.0-32.9, adult; Z99.2 Dependence on renal dialysis; Z79.899 Other long term (current) drug therapy

== ENCOUNTER 2016-12-29 21:39 | Emergency (ER) | payer OTHER ==
[~2016-12-29] VITALS: Ht 167.6 cm; Wt 87.1 kg
[~2016-12-29 21:39] MED LIST changes: +CARV3.122 PO; +COLC1TAB25 PO; +LSN40 PO; +OXYC-57 PO; -OXYC1TAB3 PO; -SULF800T23 PO
[2016-12-29 21:43] VITALS: TEMP 36.7; Ht 167.6 cm; Wt 87.1 kg
[2016-12-29] MEDS ORDERED: ONDANSETRON INJ 2 MG/ML 2 ML VIAL IV STA (22:20)
[2016-12-29] MEDS ORDERED: MoRPHine SULFATE 4 MG/ML 1 ML CARP\\VIAL IV STA (22:20)
[2016-12-29 22:39] LABS: BASO % 0.2 %; BASO ABS # 0.01 K/uL (0-0.2); COMPLETE YES; EOS % 2.9 %; HEMATOCRIT 34.9 % (37-47); IG% 0.2 %; LYMPH % 9.2 %; LYMPH ABS # 0.51 K/uL (1.2-3.4); MEAN CELL VOLUME 97.5 fL (80-100); MEAN CORPUSCULAR HEMOGLOBIN 30.7 pg (25-34); MEAN CORPUSCULAR HGB CONC 31.5 g/dl (32-36); MONO % 6.7 %; NEUT % 80.8 %; PLATELET COUNT 186 K/uL (130-400); RED BLOOD COUNT 3.58 M/uL (4.2-5.4); WHITE BLOOD COUNT 5.55 K/uL (4.8-10.8)
--- NOTE | 2016-12-29 22:48 | DIAGNOSTIC IMAGING REPORT ---
CHEST ONE VIEW PORTABLE CLINICAL HISTORY: CHEST PAIN dyspnea COMPARISON STUDY: 12/16/2016 FINDINGS: The bones soft tissues and hemidiaphragms are normal. The cardiomediastinal silhouette is normal. The lungs are clear. The pulmonary vasculature is normal. IMPRESSION: Negative chest. Electronically signed by: Adolph Rizo M.D. 12/29/2016 10:46 PM Dictated Date/Time: 12/29/2016 10:46 PM
--- NOTE | 2016-12-29 22:52 | EMERGENCY ROOM VISIT NOTE ---
History Report prepared by Katia: Asia Villasenor Under the Supervision of: Dr. Andrea Diaz M.D. First contact with patient: 22:06 Chief Complaint: CARDIAC ASSESSMENT Stated Complaint: CHEST PAIN,VOMITING History of Present Illness The patient is a 31 year old female who presents to the Emergency Room with complaints of constant chest pain beginning yesterday. The patient states that she had a cholecystectomy last week and was seen here recently after her surgery. She reports that she went to all of her dialysis treatments this week but yesterday she left 30 minutes early after having 3 hours of dialysis due to her blood clotting the machine. She reports that since then she has been having chest pain, achiness, headache, vomiting, and diarrhea. She denies any bloody or black stools, shortness of breath, changes in urination, trauma, and cough. The patient notes that she has a history of migraines and had fluid in her lungs 1 month ago. She notes that her pain is worsened with breathing. Source of History: patient Onset: yesterday Position: chest Modifying Factors (Worsening): breathing Associated Symptoms: + diarrhea, + headache, + vomiting, No SOB, No cough, No urinary symptoms Note: She reports that since then she has been having achiness. She denies any bloody or black stools, trauma. Review of Systems See HPI for pertinent positives & negatives. A total of 10 systems reviewed and were otherwise negative. Past Medical & Surgical Medical Problems: (1) CKD (chronic kidney disease) stage V requiring chronic dialysis (2) DM2 (diabetes mellitus, type 2) (3) Focal segmental glomerulosclerosis (4) HTN (hypertension) (5) Migraine (6) Renal failure Surgical Problems: (1) H/O knee surgery (2) H/O tubal ligation (3) H/O: (4) Kidney transplant status, living related donor Social History Problems: (1) Kidney transplanted Old medical records were reviewed. Nurse's notes were reviewed and I agree with. Family History Crohn's disease FATHER Diabetes mellitus MOTHER Hypertension SISTER Social History Smoking Status: Current Every Day Smoker Alcohol Use: none Drug Use: none Marital Status: in relationship Housing Status: lives with family, lives with significant other Occupation Status: disabled Current/Historical Medications Scheduled Calcium Acetate (Phoslo 667 Mg), 2,668 MG PO WITH MEALS Calcium Acetate (Phoslo 667 Mg), 1,334 MG PO WITH SNACKS Carvedilol (Coreg), 3.125 MG PO BID Escitalopram Oxalate (Escitalopram Oxalate), 20 MG PO QAM Lisinopril (Lisinopril), 40 MG PO HS Mirtazapine (Remeron), 30 MG PO HS Trazodone Hcl (Trazodone), 50 MG PO HS Scheduled PRN Albuterol Hfa (Ventolin Hfa), 2 PUFFS INH QID PRN for Allergy Symptoms Allergies Coded Allergies: Cefaclor (Verified Allergy, Unknown, Rash, 12/18/16) Reported by PT. Physical Exam Vital Signs Date Time Temp Pulse Resp B/P Pulse Ox O2 Delivery O2 Flow Rate FiO2 12/30/16 00:23 80 16 172/107 96 Room Air 12/29/16 22:48 85 18 165/112 97 Room Air 12/29/16 22:05 Room Air 12/29/16 22:05 89 12/29/16 22:05 Room Air 12/29/16 21:43 36.7 94 20 161/107 97 Room Air Physical Exam General: Well developed well nourished non ill appearing young female in no acute distress, breathing comfortably on room air. Normal speech HEENT: Normal cephalic atraumatic. Pupils are equal round and reactive to light. Extraocular movements are intact. Oropharynx is pink with moist mucous membranes. No swelling of the mouth lips or tongue. Neck: Supple with a midline trachea. No meningeal signs or stiffness, no JVD or bruits. No Stridor. Chest: Clear to auscultation bilaterally. No wheezes or rhonchi. No increased work of breathing. Exquisitely tender to palpation to sternum centrally. Heart: regular rate and rhythm. Abdomen: Soft nontender, nondistended without rebound guarding or rigidity. Well healing incisions in the abdomen. Extremities: No cyanosis clubbing or edema. No calf tenderness or assymetry. Dialysis fistula in left arm. Spine/Back. Non tender to palpation. No CVA tenderness Skin: Good turgor without rashes. Neurologic exam: Cranial nerves two through 12 are intact. Motor and sensation are intact and symmetrical throughout. Medical Decision & Procedures ER Provider Diagnostic Interpretation: X-ray results as stated below per interpretation by me and the radiologist: CHEST ONE VIEW PORTABLE FINDINGS: The bones soft tissues and hemidiaphragms are normal. The cardiomediastinal silhouette is normal. The lungs are clear. The pulmonary vasculature is normal. IMPRESSION: Negative chest. Electronically signed by: Adolph Rizo M.D. 12/29/2016 10:46 PM Dictated Date/Time: 12/29/2016 10:46 PM Laboratory Results 12/29/16 22:30 Red Blood Count 3.58, Mean Corpuscular Volume 97.5, Mean Corpuscular Hemoglobin 30.7, Mean Corpuscular Hemoglobin Concent 31.5, Mean Platelet Volume 11.0, Neutrophils (%) (Auto) 80.8, Lymphocytes (%) (Auto) 9.2, Monocytes (%) (Auto) 6.7, Eosinophils (%) (Auto) 2.9, Basophils (%) (Auto) 0.2, Neutrophils # (Auto) 4.49, Lymphocytes # (Auto) 0.51, Monocytes # (Auto) 0.37, Eosinophils # (Auto) 0.16, Basophils # (Auto) 0.01 12/29/16 22:30 12/29/16 23:17 Test 12/29/16 22:30 12/29/16 23:17 White Blood Count 5.55 K/uL (4.8-10.8) Red Blood Count 3.58 M/uL (4.2-5.4) Hemoglobin 11.0 g/dL (12.0-16.0) Hematocrit 34.9 % (37-47) Mean Corpuscular Volume 97.5 fL (80-100) Mean Corpuscular Hemoglobin 30.7 pg (25-34) Mean Corpuscular Hemoglobin Concent 31.5 g/dl (32-36) Platelet Count 186 K/uL (130-400) Mean Platelet Volume 11.0 fL (7.4-10.4) Neutrophils (%) (Auto) 80.8 % Lymphocytes (%) (Auto) 9.2 % Monocytes (%) (Auto) 6.7 % Eosinophils (%) (Auto) 2.9 % Basophils (%) (Auto) 0.2 % Neutrophils # (Auto) 4.49 K/uL (1.4-6.5) Lymphocytes # (Auto) 0.51 K/uL (1.2-3.4) Monocytes # (Auto) 0.37 K/uL (0.11-0.59) Eosinophils # (Auto) 0.16 K/uL (0-0.5) Basophils # (Auto) 0.01 K/uL (0-0.2) RDW Standard Deviation 56.2 fL (36.4-46.3) RDW Coefficient of Variation 15.9 % (11.5-14.5) Immature Granulocyte % (Auto) 0.2 % Immature Granulocyte # (Auto) 0.01 K/uL (0.00-0.02) Anion Gap 10.0 mmol/L (3-11) Est Creatinine Clear Calc Drug Dose 11.2 ml/min Estimated GFR () 6.9 Estimated GFR (Non- 6.0 BUN/Creatinine Ratio 6.8 (10-20) Calcium Level 8.3 mg/dl (8.5-10.1) Total Bilirubin 0.4 mg/dl (0.2-1) Direct Bilirubin mg/dl (0-0.2) Alanine Aminotransferase (ALT/SGPT) 19 U/L (12-78) Alkaline Phosphatase 67 U/L (45-117) Troponin I 0.025 ng/ml (0-0.045) Total Protein 7.2 gm/dl (6.4-8.2) Albumin 3.4 gm/dl (3.4-5.0) Lipase 268 U/L (73-393) Human Chorionic Gonadotropin, Qual NEG (NEG) Aspartate Amino Transf (AST/SGOT) 12 U/L (15-37) Laboratory studies as stated above per my review. Medications Administered Medications (Trade) Dose Ordered Sig/Sachin Route Start Time Stop Time Status Last Admin Dose Admin Morphine Sulfate (MoRPHine SULFATE INJ) 4 mg NOW STAT IV 12/29/16 22:20 12/29/16 22:22 DC 12/29/16 22:46 4 MG Ondansetron HCl (Zofran Inj) 4 mg NOW STAT IV 12/29/16 22:20 12/29/16 22:22 DC 12/29/16 22:46 4 MG Morphine Sulfate (MoRPHine SULFATE INJ) 4 mg NOW STAT IV 12/30/16 00:10 12/30/16 00:12 DC 12/30/16 00:20 4 MG ECG Indication: chest pain Rate (beats per minute): 89 Rhythm: normal sinus Findings: T-wave inversion (Lateral), no acute ischemic change Comparison ECG Date: 11/21/16 Change: no significant change Change: EKG #2: Normal Sinus, 80, Lateral T Wave Inversions which are unchanged from previous. ED Course 2207: Past medical records reviewed. The patient was evaluated in room C9, and a complete history and physical examination were performed. 2220: Zofran Inj 4mg IV, Morphine Sulfate 4mg IV. 2317: I reevaluated the patient. She is feeling better after the medication. 0004: I reevaluated the patient. She is having chest pain and would like more pain medication. The chest pain is central and reproducible. 71487: Morphine Sulfate 4mg IV. 0057: I reevaluated the patient. She is resting comfortably and using her cellphone. 0059: Upon reevaluation, the patient is doing well. I discussed the results and treatment plan with the patient. She verbalized agreement of the treatment plan. The patient was discharged home. Medical Decision Differential diagnosis includes costochondritis, CHF, pneumonia, cardiac disease , electrolyte or metabolic abnormality. This patient comes in as described above. She was placed in room C9. She is here for treatment and evaluation of central chest pain and diarrhea. She is a dialysis patient. She has not missed dialysis. Her pain is very reproducible. EKG shows some lateral T-wave inversions however this is unchanged from old. Chest x-ray was clear and did not show congestive heart failure, pneumonia, or pneumothorax. Multiple blood testing was obtained. IV access established in her right arm. She was given morphine 4 mg IV and Zofran 4 mg IV. she has no acute electrode or metabolic abdomen was. She is nothing to suggest infection. With the morphine she felt significantly better she started having pain again and I repeated EKG is unchanged . she was given additional morphine is resting very comfortably .she's had pain like this before . I do not think is likely a PE. She is exquisitely tender to palpation in the sternum. Think is musculoskeletal. She feels good and would like to go home. She should follow up with her doctor/dialysis on Saturday and do not miss her dialysis. Return if: increasing pain, worsening of symptoms, fever chills, any new problems or concerns. She is having the plan and discharged home. Impression Primary Impression: Precordial chest pain Additional Impression: Costochondritis Scribe Attestation The scribe's documentation has been prepared under my direction and personally reviewed by me in its entirety. I confirm that the note above accurately reflects all work, treatment, procedures, and medical decision making performed by me. Departure Information Dispostion Home / Self-Care Referrals No Doctor, Assigned (PCP) Forms IMPORTANT VISIT INFORMATION Patient Instructions My [facility] Additional Instructions Rest REturn if: worsening of symptoms, shortness of breath, any new problems of concerns Follow-up with your doctor on Saturday for recheck Problem Qualifiers
[2016-12-29 23:02] LABS: PREG INTERNAL NEGATIVE QC NEG CLEAR BACKGROUND; PREG INTERNAL POSITIVE QC POS CONTROL LINE
[2016-12-29 23:26] LABS: ALKALINE PHOSPHATASE 67 U/L (45-117); ALT/SGPT 19 U/L (12-78); BLOOD UREA NITROGEN 55 mg/dl (7-18); BUN/CREATININE RATIO 6.8 (10-20); CALCIUM 8.3 mg/dl (8.5-10.1); CARBON DIOXIDE 27 mmol/L (21-32); CHLORIDE 97 mmol/L (98-107); GLUCOSE 93 mg/dl (70-99); SODIUM 134 mmol/L (136-145)
[2016-12-29 23:37] LABS: POTASSIUM 4.9 mmol/L (3.5-5.1)
[2016-12-30] MEDS ORDERED: MoRPHine SULFATE 4 MG/ML 1 ML CARP\\VIAL IV STA (00:10)
[2016-12-30 00:23] VITALS: BP 172/107; PULSE 80; O2SAT 96
[2017-01-25] MEDS ORDERED: CRG625 PO (11:09)
[2017-02-06] MEDS ORDERED: LISI40TA PO (07:33)
[2017-02-12] MEDS ORDERED: AMOX875T PO (12:45)
[2017-02-14] MEDS ORDERED: DOXY100C76 PO (15:33)
[2017-02-21] MEDS ORDERED: OXYC-57 PO (15:28)
[2017-02-28] MEDS ORDERED: AMLO-114 PO (08:43)
[2017-03-06] MEDS ORDERED: CARV3.122 PO (10:28)
[2017-03-08] MEDS ORDERED: ZFRODT4HP PO (15:53)
[2017-03-20] MEDS ORDERED: TOBR0.3S4 OPL (14:35)
[2017-03-20] MEDS ORDERED: DOXY100T PO (14:35)
[2017-04-24] MEDS ORDERED: CMD/25 PO (12:00)
[2017-04-26] MEDS ORDERED: CMD3 PO (16:37)
[2017-04-26] MEDS ORDERED: LISI20TA3 PO (16:37)
[2017-05-15] MEDS ORDERED: VNTHFA/IN INH (12:28)
[2017-05-15] MEDS ORDERED: LISI-725 PO (13:43)
[2017-05-15] MEDS ORDERED: CALC500C3 PO (13:50)
[2017-05-15] MEDS ORDERED: CRG125 PO (15:17)
[2017-05-15] MEDS ORDERED: NRV/5 PO (15:17)
[2017-05-15] MEDS ORDERED: BENZ100C7 PO (15:22)
[2017-05-15] MEDS ORDERED: FLUT0.15 NAE (15:33)
[2017-05-15] MEDS ORDERED: CALC0.5C PO (18:14)
[2017-05-15] MEDS ORDERED: MIRT30TA3 PO (19:24)
[2017-05-15] MEDS ORDERED: TRAZ50TA35 PO (19:56)
[2017-05-15] MEDS ORDERED: CALC667C4 PO ×2 (19:56→21:12)
[2017-05-15] MEDS ORDERED: LXP/20 PO (21:08)
[2017-05-15] MEDS ORDERED: FAMO40TA6 PO (23:12)
[2017-05-17] MEDS ORDERED: CRG25 PO (14:53)
[2017-05-21] MEDS ORDERED: APR25 PO (00:24)
[2017-05-21] MEDS ORDERED: APR50 PO (15:28)
[2017-05-21] MEDS ORDERED: ATV1 PO (15:28)
[2017-05-21] MEDS ORDERED: ativan PO (16:06)
[2017-06-11] MEDS ORDERED: VORT1TAB PO (07:51)
[2017-06-11] MEDS ORDERED: LORA-741 PO (07:51)
== END 2016-12-30 01:05 | disposition home or self-care (01) ==
LOC: C.EDB 21:40 → C.EDC 12-30 01:05
DX: R07.2 Precordial pain (principal); M94.0 Chondrocostal junction syndrome [Tietze]; N18.4 Chronic kidney disease, stage 4 (severe); E11.9 Type 2 diabetes mellitus without complications; I10 Essential (primary) hypertension; Z83.3 Family history of diabetes mellitus; Z82.49 Family history of ischemic heart disease and other diseases of the circulatory system; F17.200 Nicotine dependence, unspecified, uncomplicated

== ENCOUNTER 2017-01-01 18:50 | Inpatient (IN) | payer OTHER ==
[~2017-01-01] VITALS: Ht 167.6 cm; Wt 86.6 kg
[~2017-01-01 18:50] MED LIST changes: -CALC500C3 PO; -CALC667C4 PO; -COLC1TAB25 PO; -FAMO40TA6 PO; -OXYC-57 PO
--- NOTE | 2017-01-01 19:46 | DIAGNOSTIC IMAGING REPORT ---
CHEST ONE VIEW PORTABLE CLINICAL HISTORY: Respiratory distress COMPARISON STUDY: 12/29/2016 FINDINGS: The heart is enlarged. There is no focal pulmonary consolidation. There are no pleural effusions. There is no failure. There is no pneumothorax.[ IMPRESSION: Mild cardiomegaly. No acute findings. Electronically signed by: Win Foster M.D. 01/01/2017 7:45 PM Dictated Date/Time: 01/01/2017 7:44 PM
[2017-01-01 20:00] LABS: BASO % 0.2 %; BASO ABS # 0.01 K/uL (0-0.2); COMPLETE YES; EOS % 4.4 %; HEMATOCRIT 30.6 % (37-47); LYMPH % 20.2 %; LYMPH ABS # 0.82 K/uL (1.2-3.4); MEAN CELL VOLUME 96.2 fL (80-100); MEAN CORPUSCULAR HEMOGLOBIN 30.8 pg (25-34); MONO % 7.4 %; NEUT % 67.8 %; PLATELET COUNT 127 K/uL (130-400); RED BLOOD COUNT 3.18 M/uL (4.2-5.4); WHITE BLOOD COUNT 4.05 K/uL (4.8-10.8)
--- NOTE | 2017-01-01 20:05 | DIAGNOSTIC IMAGING REPORT ---
CT HEAD WITHOUT CONTRAST (CT) CLINICAL HISTORY: syncope COMPARISON STUDY: 07-11 TECHNIQUE: Axial CT of the brain is performed from the vertex to the skull base. IV contrast was not administered for this examination. CT DOSE: 537.48 mGy.cm FINDINGS: No intra or extra-axial mass lesions are visualized. There is no CT evidence of acute cortical infarction. There is no evidence of midline shift. There is no acute hemorrhage. No calvarial fractures are visualized. There is no evidence of pathologic ventricular dilatation. There is moderate sphenoid sinus mucosal thickening. IMPRESSION: No acute intracranial findings Electronically signed by: Win Foster M.D. 01/01/2017 8:04 PM Dictated Date/Time: 01/01/2017 8:03 PM
[2017-01-01] MEDS ORDERED: MoRPHine SULFATE 4 MG/ML 1 ML CARP\\VIAL IV STA (20:11)
[2017-01-01 20:30] LABS: ALB/GLOB RATIO 0.8 (0.9-2); BUN/CREATININE RATIO 8.5 (10-20); CALCIUM 7.7 mg/dl (8.5-10.1); POTASSIUM 6.5 mmol/L (3.5-5.1)
[2017-01-01] MEDS ORDERED: NovoLIN-R INSULIN PER UNIT CHARGE SC STA (20:36)
[2017-01-01] MEDS ORDERED: SODIUM BICARB 8.4% INJ 50 MEQ/50 ML SYR IV STA (20:40)
[2017-01-01] MEDS ORDERED: DEXTROSE 50% 50 ML SYR IV ONE ×2 (20:45→22:30)
[2017-01-01] MEDS ORDERED: FAMO40TA6 PO (21:28)
[2017-01-01] MEDS ORDERED: NITROGLYCERIN 0.4 MG SL PER TAB CHARGE SL PRN (21:30)
[2017-01-01] MEDS ORDERED: MoRPHine SULFATE 2 MG/ML CARP IV PRN (21:30)
[2017-01-01] MEDS ORDERED: ALBUTEROL HFA 8 GM INHALER INH PRN (21:30)
[2017-01-01] MEDS ORDERED: ALUMINUM/MAGNESIUM/SIMETH (MAALOX MAX) 30 ML UDC PO PRN (21:30)
[2017-01-01] MEDS ORDERED: ACETAMINOPHEN 325 MG TAB PO PRN (21:30)
[2017-01-01] MEDS ORDERED: HydrALAZINE HCL 20 MG/ML VIAL IV. PRN (22:00)
--- NOTE | 2017-01-01 22:05 | HISTORY & PHYSICAL EXAMINATION ---
DATE OF ADMISSION: 01/01/2017 CHIEF COMPLAINT: Syncope. HISTORY OF PRESENT ILLNESS: This is a 31-year-old female with past medical history significant for end-stage renal disease on hemodialysis, history of FSGS status post rejected kidney transplant, hypertension; diabetes, diet controlled; chronic anemia, baseline hemoglobin 8; ongoing tobacco abuse, recent history of pericarditis for which she is on colchicine a course of 1 month and recently had a cholecystectomy a couple of weeks ago, presents with syncope. The patient missed her dialysis yesterday because she had a family meeting and today in the evening when she got up from the bed from her couch, she fell back, says she lost consciousness for few moments and then she was back to normal her usual self.Then called 911 and came to the ER. At that time, she also had some shortness of breath and chest pain, although symptoms resolved after the patient was given morphine in the ER. Currently resting comfortably, hemodynamically stable. Blood pressures running on the higher side. Denies any headaches. No blurred visions. Has some dizziness. No shortness of breath or chest pain this time. No fever, no chills, no cough, no nausea, no vomiting. Had a couple of episodes of diarrhea today. No abdominal pain. ALLERGIES: CEFACLOR. PAST MEDICAL HISTORY: As mentioned above. PAST SURGICAL HISTORY: Kidney transplant, knee surgery, tubal ligation, , recent cholecystectomy. FAMILY HISTORY: Gallbladder disease, IBD, diabetes and high blood pressure. SOCIAL HISTORY: Has few cigarettes a day. No alcohol abuse. MEDICATIONS: Currently, the patient is on albuterol 2 puffs q.i.d. p.r.n., calcium acetate tablets, Coreg 3.125 mg p.o. b.i.d., escitalopram oxalate 20 mg p.o. q.a.m., famotidine 40 mg p.o. at bedtime, lisinopril 40 mg p.o. at bedtime, Remeron 30 mg p.o. at bedtime, trazodone 50 mg p.o. at bedtime. REVIEW OF SYMPTOMS: As per HPI. Rest of review of symptoms negative. PHYSICAL EXAMINATION: GENERAL: The patient is alert and oriented, not in distress. VITAL SIGNS: Temperature 37.1, pulse 80, respiratory rate 18, blood pressure 182/123, oxygen 96% room air. HEENT: No pallor, no icterus. Pupils equal, round, and reactive to light. NECK: No JVD, no neck masses, no carotid bruits. CARDIOVASCULAR: S1, S2 heard, regular rate and rhythm, no murmur, no gallop. RESPIRATORY SYSTEM: Clear to auscultation bilaterally. No wheezing, no crackles. ABDOMEN: Soft, bowel sounds present. Nontender. No distention. CENTRAL NERVOUS SYSTEM: Cranial nerves II-XII grossly intact. Nonfocal. EXTREMITIES: No edema, no erythema. LABS: WBC of 4.05, hemoglobin 9.8, hematocrit 30.6, platelets 127. Sodium 135, potassium 6.5, chloride 101, CO2 21, BUN 110, creatinine 113, serum glucose 98. Calcium 7.7, total bilirubin 0.3, AST 16, ALT 30, alkaline phosphatase is 90, troponin I 0.037. IMAGING DATA: Chest x-ray - mild cardiomegaly, no acute findings. CT of the head - no acute intracranial findings. EKG: Shows normal sinus rhythm with rate of 82. Nonspecific ST changes seen. QT 509. ASSESSMENT AND PLAN: This is a 31-year-old female who presents with syncope. 1. Syncope, most likely secondary to hyperkalemia, prolonged QT. The patient missed dialysis yesterday. Her last dialysis on last Saturday. The patient received bicarbonate, insulin and dextrose in the ER. Currently stable. Will monitor on tele floor. Serial cardiac enzymes and echocardiogram. The patient is going for dialysis tonight. Nephrology notified. 2. End-stage renal disease on dialysis as above. 3. Chest pain, history of pericarditis. received 4 weeks of colchicine recently. Will follow echo and serial cardiac enzymes. Monitor on tele floor. 4. History of hypertension. Continue home medication of lisinopril and Coreg. Currently,blood pressure running high. IV hydralazine p.r.n. 5. History of depression. Continue Lexapro. 6. Gastroesophageal reflux disease: Continue Pepcid. 7. Deep vein thrombosis prophylaxis, sequential compression devices for now. DISPOSITION: Admit to tele floor. Expect to discharge home and follow with family doctor and nephrology. Level 1 full code. MTDD
[2017-01-01] MEDS ORDERED: IV FLUIDS COMPLETED PRN (22:45)
[2017-01-01 23:00] VITALS: BP 146/93; PULSE 87; TEMP 36.5
[2017-01-01 23:30] VITALS: BP 140/72; PULSE 85
[2017-01-01 23:45] VITALS: BP 144/94; PULSE 83
[2017-01-02] VITALS (34 sets, daily range): BP systolic 133–173; BP diastolic 66–98; PULSE 66–82; TEMP 36.5–36.9; O2SAT 96–99; Ht 167.6 cm; Wt 86.6 kg
--- NOTE | 2017-01-02 01:46 | EMERGENCY ROOM VISIT NOTE ---
History Report prepared by Katia: Jose Obrien Under the Supervision of: Dr. Berry Alves D.O. First contact with patient: 18:52 Chief Complaint: SHORTNESS OF BREATH Stated Complaint: SHORTNESS OF BREATH History of Present Illness The patient is a 31 year old female who presents to the Emergency Room following an episode of syncope that occurred shortly prior to arrival. The patient states that she stood up from laying on her couch to get something to eat when she felt nauseous and her head became "fuzzy" and everything went black. She states that she does not believe she was passed out for very long, and fell directly back onto the cough. There were no witnesses to this episode. She also complains of intermittent chest pains for the past week. Her chest pain is worsened by deep inspiration movement, and daily activities. The patient had a laparoscopic cholecystectomy two weeks prior to arrival, and is on dialysis of kidney failure. The patient had FSGS and a failed transplant. The patient skipped her dialysis yesterday, and has another appointment tomorrow. She also has a history of diabetes, hypertension, and anemia. The patient denies headache, change in vision, fevers, diarrhea, pain with urination , and melena. 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 A total of 10 systems reviewed and were otherwise negative. Past Medical & Surgical Medical Problems: (1) CKD (chronic kidney disease) stage V requiring chronic dialysis (2) DM2 (diabetes mellitus, type 2) (3) Focal segmental glomerulosclerosis (4) HTN (hypertension) (5) Hyperkalemia (6) Migraine (7) Renal failure (8) Syncope Surgical Problems: (1) H/O knee surgery (2) H/O tubal ligation (3) H/O: (4) Kidney transplant status, living related donor Social History Problems: (1) Kidney transplanted Family History Crohn's disease FATHER Diabetes mellitus MOTHER Hypertension SISTER Social History Smoking Status: Current Every Day Smoker Alcohol Use: none Drug Use: none Marital Status: in relationship Housing Status: lives with family, lives with significant other Occupation Status: disabled Current/Historical Medications Scheduled Calcium Acetate (Phoslo 667 Mg), 2,668 MG PO WITH MEALS Calcium Acetate (Phoslo 667 Mg), 1,334 MG PO WITH SNACKS Carvedilol (Coreg), 3.125 MG PO BID Escitalopram Oxalate (Escitalopram Oxalate), 20 MG PO QAM Famotidine (Pepcid), 1 TAB PO DAILY Lisinopril (Lisinopril), 40 MG PO HS Mirtazapine (Remeron), 30 MG PO HS Trazodone Hcl (Trazodone), 50 MG PO HS Scheduled PRN Albuterol Hfa (Ventolin Hfa), 2 PUFFS INH QID PRN for Allergy Symptoms Allergies Coded Allergies: Cefaclor (Verified Allergy, Unknown, Rash, 01/01/17) Reported by PT. Physical Exam Vital Signs Date Time Temp Pulse Resp B/P Pulse Ox O2 Delivery O2 Flow Rate FiO2 01/01/17 20:56 80 18 182/123 96 Room Air 01/01/17 20:07 88 01/01/17 19:13 100 Room Air 01/01/17 19:13 37.1 86 20 173/107 100 Room Air Physical Exam GENERAL: Patient is sitting up in bed, disheveled appearing. EYE EXAM: normal conjunctiva, PERRL and EOM's intact OROPHARYNX: no exudate, no erythema, lips, buccal mucosa, and tongue normal and mucous membranes are moist NECK: supple, no nuchal rigidity, no adenopathy, non-tender CHEST: Reproducible anterior chest wall pain over the entirety of the right chest. LUNGS: Clear to auscultation. Normal chest wall mechanics HEART: no murmurs, S1 normal and S2 normal ABDOMEN: abdomen soft, non-tender, normo-active bowel sounds, no masses, no rebound or guarding. BACK: Back is symmetrical on inspection and there is no deformity, no midline tenderness, no CVA tenderness. SKIN: no rashes and no bruising UPPER EXTREMITIES: upper extremities are grossly normal. There is a fistula located in the left arm, with positive bruit LOWER EXTREMITIES: No pitting edema. NEURO EXAM: Normal sensorium, cranial nerves II-XII intact, normal speech, no weakness of arms, no weakness of legs. No drift. Finger to nose intact. Gross sensation intact. Medical Decision & Procedures ER Provider Diagnostic Interpretation: Radiology results as stated below per my review and the radiologist's interpretation: CT HEAD WITHOUT CONTRAST (CT) CLINICAL HISTORY: syncope COMPARISON STUDY: 07-11 TECHNIQUE: Axial CT of the brain is performed from the vertex to the skull base. IV contrast was not administered for this examination. CT DOSE: 537.48 mGy.cm FINDINGS: No intra or extra-axial mass lesions are visualized. There is no CT evidence of acute cortical infarction. There is no evidence of midline shift. There is no acute hemorrhage. No calvarial fractures are visualized. There is no evidence of pathologic ventricular dilatation. There is moderate sphenoid sinus mucosal thickening. IMPRESSION: No acute intracranial findings Electronically signed by: Win Foster M.D. 01/01/2017 8:04 PM Dictated Date/Time: 01/01/2017 8:03 PM CHEST ONE VIEW PORTABLE CLINICAL HISTORY: Respiratory distress COMPARISON STUDY: 12/29/2016 FINDINGS: The heart is enlarged. There is no focal pulmonary consolidation. There are no pleural effusions. There is no failure. There is no pneumothorax.[ IMPRESSION: Mild cardiomegaly. No acute findings. Electronically signed by: Win Foster M.D. 01/01/2017 7:45 PM Dictated Date/Time: 01/01/2017 7:44 PM Laboratory Results 01/01/17 19:49 Red Blood Count 3.18, Mean Corpuscular Volume 96.2, Mean Corpuscular Hemoglobin 30.8, Mean Corpuscular Hemoglobin Concent 32.0, Mean Platelet Volume 9.0, Neutrophils (%) (Auto) 67.8, Lymphocytes (%) (Auto) 20.2, Monocytes (%) (Auto) 7.4, Eosinophils (%) (Auto) 4.4, Basophils (%) (Auto) 0.2, Neutrophils # (Auto) 2.74, Lymphocytes # (Auto) 0.82, Monocytes # (Auto) 0.30, Eosinophils # (Auto) 0.18, Basophils # (Auto) 0.01 01/01/17 19:49 Test 01/01/17 19:49 White Blood Count 4.05 K/uL (4.8-10.8) Red Blood Count 3.18 M/uL (4.2-5.4) Hemoglobin 9.8 g/dL (12.0-16.0) Hematocrit 30.6 % (37-47) Mean Corpuscular Volume 96.2 fL (80-100) Mean Corpuscular Hemoglobin 30.8 pg (25-34) Mean Corpuscular Hemoglobin Concent 32.0 g/dl (32-36) Platelet Count 127 K/uL (130-400) Mean Platelet Volume 9.0 fL (7.4-10.4) Neutrophils (%) (Auto) 67.8 % Lymphocytes (%) (Auto) 20.2 % Monocytes (%) (Auto) 7.4 % Eosinophils (%) (Auto) 4.4 % Basophils (%) (Auto) 0.2 % Neutrophils # (Auto) 2.74 K/uL (1.4-6.5) Lymphocytes # (Auto) 0.82 K/uL (1.2-3.4) Monocytes # (Auto) 0.30 K/uL (0.11-0.59) Eosinophils # (Auto) 0.18 K/uL (0-0.5) Basophils # (Auto) 0.01 K/uL (0-0.2) RDW Standard Deviation 55.5 fL (36.4-46.3) RDW Coefficient of Variation 15.7 % (11.5-14.5) Immature Granulocyte % (Auto) 0.0 % Immature Granulocyte # (Auto) 0.00 K/uL (0.00-0.02) Anion Gap 13.0 mmol/L (3-11) Est Creatinine Clear Calc Drug Dose 7.1 ml/min Estimated GFR () 3.9 Estimated GFR (Non- 3.4 BUN/Creatinine Ratio 8.5 (10-20) Calcium Level 7.7 mg/dl (8.5-10.1) Total Bilirubin 0.3 mg/dl (0.2-1) Aspartate Amino Transf (AST/SGOT) 16 U/L (15-37) Alanine Aminotransferase (ALT/SGPT) 30 U/L (12-78) Alkaline Phosphatase 90 U/L (45-117) Troponin I 0.037 ng/ml (0-0.045) Total Protein 7.3 gm/dl (6.4-8.2) Albumin 3.3 gm/dl (3.4-5.0) Globulin 4.0 gm/dl (2.5-4.0) Albumin/Globulin Ratio 0.8 (0.9-2) Laboratory results per my review. Medications Administered Medications (Trade) Dose Ordered Sig/Sachin Route Start Time Stop Time Status Last Admin Dose Admin Morphine Sulfate (MoRPHine SULFATE INJ) 4 mg NOW STAT IV 01/01/17 20:11 01/01/17 20:12 DC 01/01/17 20:20 4 MG Diphenhydramine HCl (Benadryl Cap) 25 mg NOW ONCE PO 01/01/17 20:45 01/01/17 20:46 DC 01/01/17 20:46 25 MG Insulin Human Regular (novoLIN-R U-100 PER UNIT) 10 units NOW STAT SC 01/01/17 20:36 01/01/17 20:38 DC 01/01/17 20:45 10 UNITS Dextrose (Dextrose 50% 50ML Syringe) 50 ml NOW ONCE IV 01/01/17 20:45 01/01/17 20:46 DC 01/01/17 20:45 50 ML Sodium Bicarbonate (Sodium Bicarbonate 8.4% Inj) 50 ml NOW STAT IV 01/01/17 20:40 01/01/17 20:41 DC 01/01/17 20:46 50 ML ECG Indication: syncope Rate (beats per minute): 82 Rhythm: normal sinus Findings: prolonged QT, other (LAD, Poor baseline in the inferior) ED Course ED COURSE: Vital signs were reviewed and showed Hypertensive vitals. The patients medical record was reviewed The above diagnostic studies were performed and reviewed. The patient had a laproscopic cholecystectomy at the end of November. She was here on the for chest pain. She is on Dialysis. ED treatments and interventions as stated above. 1854: The patient was evaluated in room A4. A complete history and physical examination was performed. 2010: Ordered Morphine Sulfate 4 mg IV. 2035: Ordered Regular Human Insulin 10 units SC. 2039: Ordered Sodium Bicarbonate 50 mL IV. 2044: Ordered Dextrose 50 mL IV, Benadryl 25 mg PO. 2101: I discussed the case with [facility] - Nephrology at this time, she will dialyze the patient in the department tonight. 2104: I discussed the case with Dr. Morgan - [facility] Hospitalist at this time, he will evaluate the patient for further treatment. 2107: Upon reevaluation, the patient is resting in bed.I discussed my findings with the patient and she understands and agrees with the treatment plan. Based on the patients age, coexisting illnesses, exam and lab findings the decision to treat as an inpatient was made. The patient remained stable while under my care. The patient will be evaluated for further management. Medical Decision Differential diagnosis includes etiologies such as vasovagal event, infection, hypoglycemia, electrolyte abnormalities, cardiac sources, intracerebral event, toxicologic, neurologic, as well as others were entertained. Patient is a 31 -year-old female who presents the ER for weakness and lethargy. Last dialysis was Saturday. Labs showed no significant leukocytosis. BMP shows a potassium of 6.5. Creatinine was 13. She is dialysis dependent. With this hyperkalemia it was treated aggressively. Following this she was given amp of D50 along with 10 units of insulin and bicarbonate. EKG shows no hyperacute T waves. Discussed case with nephrology and she will get dialysis for her hyperkalemia. Discussed with internal medicine patient was admitted. Consults Time Called: Consulting Physician: Dr. Deysi Solis [facility] Returned Call: [phone] I discussed the case with Dr. Deysi Solis Nephrology at this time, she will dialyze the patient in the department tonight. Additional Consults: Time Called: 2102 Consulted Physician: Dr. Eddie RANDHAWA Hospitalist Returned Call: 2104 Additional Comments: I discussed the case with Dr. Eddie RANDHAWA Hospitalist at this time, he will evaluate the patient for further treatment. Impression Primary Impression: Hyperkalemia Additional Impressions: Dependence on renal dialysis Chest pain Critical Care I have personally spent 30 minutes of critical care time in the direct management of this patient. This includes bedside care, interpretation of diagnostic studies, and testing, discussion with consultants, patient, and family members, and other required patient management activities. This 30 minutes is in excess of all separately billable procedures. Scribe Attestation The scribe's documentation has been prepared under my direction and personally reviewed by me in its entirety. I confirm that the note above accurately reflects all work, treatment, procedures, and medical decision making performed by me. Departure Information Dispostion Being Evaluated By Hospitalist Prescriptions Famotidine (PEPCID) 40 Mg Tab 1 TAB PO DAILY for 30 Days, #30 TAB 3 Refills Prov: Daquan Morgan MD 01/01/17 Referrals Adolph Aldridge M.D. (PCP) Patient Instructions My [facility] Problem Qualifiers Additional Impressions: Chest pain Chest pain type: unspecified Qualified Codes: R07.9 - Chest pain, unspecified
[2017-01-02] MEDS: MoRPHine SULFATE 2 MG/ML CARP IV PRN ×6 (02:02→23:28)
[2017-01-02 05:52] LABS: HEMATOCRIT 25.8 % (37-47); MEAN CELL VOLUME 95.2 fL (80-100); MEAN CORPUSCULAR HEMOGLOBIN 31.7 pg (25-34); MEAN CORPUSCULAR HGB CONC 33.3 g/dl (32-36); MEAN PLATELET VOLUME 8.5 fL (7.4-10.4); PLATELET COUNT 109 K/uL (130-400); RED BLOOD COUNT 2.71 M/uL (4.2-5.4); WHITE BLOOD COUNT 2.24 K/uL (4.8-10.8)
[2017-01-02 06:46] LABS: BUN/CREATININE RATIO 7.1 (10-20); CALCIUM 7.3 mg/dl (8.5-10.1); CKMB/CK RATIO 1.9 (0-3.0); CREATININE 8.7 mg/dl (0.60-1.20); MAGNESIUM 2.4 mg/dl (1.8-2.4); POTASSIUM 4.6 mmol/L (3.5-5.1)
[2017-01-02 07:04] LABS: BASO ABS # 0.02 K/uL (0-0.2); BASOPHIL % 0.9 %; COMPLETE YES; EOSINOPHIL % 5.2 %; LYMPHOCYTE % 22.4 %; NEUTROPHILS % 63.7 %; OVALOCYTES 1+
[2017-01-02] MEDS: TRAZODONE HCL 50 MG TAB PO SCH ×2 (07:30→21:59)
[2017-01-02] MEDS: ESCITALOPRAM OXALATE 20 MG TAB PO SCH (07:30)
[2017-01-02] MEDS: FAMOTIDINE 20 MG TAB PO SCH (07:30)
[2017-01-02] MEDS: CALCIUM ACETATE 667MG GELCAP PO SCH ×3 (07:30→20:17)
[2017-01-02] MEDS: CARVEDILOL 3.125 MG TAB PO SCH ×2 (07:31→20:22)
[2017-01-02] MEDS ORDERED: EPOETIN ALFA 10,000 UNITS/ML VIAL IV. ONE (07:45)
[2017-01-02] MEDS ORDERED: HEPARIN SOD (PORCINE) 1000 UNIT/ML 10 ML VIAL IV SCH ×2 (08:00)
[2017-01-02] MEDS ORDERED: EPOETIN ALFA 10,000 UNITS/ML VIAL IV. SCH (08:00)
[2017-01-02] MEDS ORDERED: EPOETIN ALFA INJ 14,000 UNITS in SYRINGE 0 ML IV. SCH (08:00)
[2017-01-02 08:10] LABS: TOTAL IRON BINDING CAPACITY 207 mcg/dl (250-450)
[2017-01-02 08:18] LABS: HEPATITIS B AB NEG
[2017-01-02] MEDS ORDERED: IRON SUCROSE INJ 100 MG in SYRINGE 0 ML IV SCH (09:30)
--- NOTE | 2017-01-02 10:51 | ECHOCARDIOGRAM REPORT ---
*NOTICE TO RECEIVING CONSTITUTION PARTY AGENCY This information is strictly Confidential and protected under [place] law. [place] law prohibits you from making any further disclosure of this information unless further disclosure is expressly permitted by the written consent of the person to whom it pertains or is authorized by law. A general authorization for the release of medical or other information is not sufficient for this purpose. Hospital accepts no responsibility if the information is made available to any other person, INCLUDING THE PATIENT. Interpretation Summary * Name: NATHALIA DUTTON Study Date: 01/02/2017 06:36 AM BP: 145/91 mmHg * Patient Location: [facility] HR: 73 * : 1985 (M/d/yyyy) Gender: Female Height: 66 in * Age: 31 yrs Ethnicity: CA Weight: 196 lb * Ordering Physician: Daquan Morgan * Referring Physician: Self, Referred * Performed By: Zabrina Alfonso RCS * * Reason For Study: SYNCOPE * BSA: 2.0 m2 * The study was technically adequate. * Compared to prior study, there is no significant change. * -- Conclusions -- * Ejection Fraction = 50-55%. * There is mild concentric left ventricular hypertrophy. * The left ventricular wall motion is normal. * There is trace tricuspid regurgitation. * The estimated systolic PAP is 35mmHg. Procedure Details * A complete two-dimensional transthoracic echocardiogram was performed (2D, M-mode, Doppler and color flow Doppler). Left Ventricle * The left ventricle is normal in size. * There is no thrombus. * There is mild concentric left ventricular hypertrophy. * Ejection Fraction = 50-55%. * Left ventricular systolic function is normal. * The left ventricular wall motion is normal. Right Ventricle * The right ventricle is normal size. * The right ventricular systolic function is normal as assessed by tricuspid annular plane systolic excursion (TAPSE) (normal >1.5 cm). Atria * The left atrial size is normal. * Right atrial size is normal. * There is no evidence of atrial septal defect, but resolution does not allow assessment for a patent foramen ovale. Mitral Valve * The mitral valve is normal. * There is no mitral valve stenosis. * Significant mitral regurgitation is absent. Tricuspid Valve * The tricuspid valve is normal. * There is no tricuspid stenosis. * There is trace tricuspid regurgitation. * The estimated systolic PAP is 35mmHg. Aortic Valve * The aortic valve is trileaflet. * Aortic stenosis is absent. * There is no significant aortic regurgitation. Pulmonic Valve * The pulmonary valve is not well seen, but the Doppler examination is normal without significant regurgitation or stenosis. Great Vessels * The aortic root and proximal ascending aorta are normal sized. Pericardium/Pleural * There is no pericardial effusion. Great Vessels * Normal inferior vena cava diameter and respiratory variation suggests normal central venous pressure. Left Ventricular Diastolic Function * Tissue doppler was not assessed. MMode 2D Measurements and Calculations IVSd 1.3 cm IVSs 2.1 cm LVIDd 5.7 cm LVIDs 3.8 cm LVPWd 1.3 cm LVPWs 1.6 cm IVS/LVPW 1.0 FS 33.1 % EDV(Teich) 162.3 ml ESV(Teich) 63.3 ml EF(Teich) 61.0 % EDV(cubed) 188.6 ml ESV(cubed) 56.4 ml EF(cubed) 70.1 % % IVS thick 55.5 % % LVPW thick 20.7 % LV mass(C)d 330.2 grams LV mass(C)dI 166.5 grams/m\S\2 LV mass(C)s 300.9 grams LV mass(C)sI 151.7 grams/m\S\2 SV(Teich) 99.0 ml SI(Teich) 49.9 ml/m\S\2 SV(cubed) 132.2 ml SI(cubed) 66.7 ml/m\S\2 Ao root diam 4.0 cm Ao root area 12.7 cm\S\2 ACS 2.2 cm LA dimension 3.9 cm LA/Ao 0.97 LVOT diam 2.0 cm LVOT area 3.2 cm\S\2 LVAd ap4 37.9 cm\S\2 LVLd ap4 8.0 cm EDV(MOD-sp4) 151.9 ml EDV(sp4-el) 151.7 ml LVAs ap4 24.1 cm\S\2 LVLs ap4 6.6 cm ESV(MOD-sp4) 74.6 ml ESV(sp4-el) 75.0 ml EF(MOD-sp4) 50.8 % EF(sp4-el) 50.5 % LVAd ap2 42.0 cm\S\2 LVLd ap2 8.9 cm EDV(MOD-sp2) 171.4 ml EDV(sp2-el) 167.0 ml LVAs ap2 24.3 cm\S\2 LVLs ap2 7.0 cm ESV(MOD-sp2) 71.6 ml ESV(sp2-el) 71.6 ml EF(MOD-sp2) 58.2 % EF(sp2-el) 57.2 % LVLd %diff 10.2 % EDV(MOD-bp) 171.8 ml LVLs %diff 5.5 % ESV(MOD-bp) 72.8 ml EF(MOD-bp) 57.6 % SV(MOD-sp4) 77.2 ml SI(MOD-sp4) 38.9 ml/m\S\2 SV(MOD-sp2) 99.8 ml SI(MOD-sp2) 50.3 ml/m\S\2 SV(MOD-bp) 99.0 ml SI(MOD-bp) 49.9 ml/m\S\2 SV(sp4-el) 76.6 ml SI(sp4-el) 38.6 ml/m\S\2 SV(sp2-el) 95.5 ml SI(sp2-el) 48.2 ml/m\S\2 Doppler Measurements and Calculations MV E max rosa 119.2 cm/sec MV A max rosa 107.3 cm/sec MV E/A 1.1 MV P1/2t max rosa 143.6 cm/sec MV P1/2t 67.0 msec MVA(P1/2t) 3.3 cm\S\2 MV dec slope 627.8 cm/sec\S\2 MV dec time 0.22 sec Ao V2 max 133.5 cm/sec Ao max PG 7.1 mmHg Ao max PG (full) 3.3 mmHg WILMER(V,A) 2.4 cm\S\2 WILMER(V,D) 2.4 cm\S\2 LV V1 max PG 3.9 mmHg LV V1 max 98.5 cm/sec PA V2 max 108.3 cm/sec PA max PG 4.7 mmHg PI max rosa 203.6 cm/sec PI max PG 16.6 mmHg PI dec slope 213.3 cm/sec\S\2 PI P1/2t 279.6 msec TR max rosa 258.2 cm/sec
--- NOTE | 2017-01-02 13:13 | Progress Note ---
Medicine Progress Note Date & Time of Visit: January 02, 2017 at 12:43. Subjective Pt was seen and examined Lying in bed with no distress Pt said that she feels much better this morning she said that her breathing is good she said that she is still having a mild chest tenderness that is chronic she said that she was admitted about 1 month for chest discomfort and she had workup done that were negative Objective Last 8 Hrs Date Time Temp Pulse Resp B/P Pulse Ox O2 Delivery O2 Flow Rate FiO2 01/02/17 12:00 98 Room Air 01/02/17 11:48 36.7 72 18 153/97 99 01/02/17 08:28 36.8 66 18 139/66 96 01/02/17 08:00 97 Room Air Physical Exam: General- No acute distress Head- atraumatic Eyes- PERRL, EOMI ENT- oropharynx clear Neck- supple, no JVD Lungs- No wheezing, no crackles Heart- regular rhythm Abdomen- normal bowel sounds, soft Extremities- no pretibial edema, no calf tenderness Neuro- alert, oriented x 3; PERRL, EOMI; no facial palsy Skin- warm & dry Laboratory Results: Last 24 Hours Test 01/01/17 19:49 01/01/17 21:55 01/01/17 22:12 01/01/17 22:35 White Blood Count 4.05 K/uL Red Blood Count 3.18 M/uL Hemoglobin 9.8 g/dL Hematocrit 30.6 % Mean Corpuscular Volume 96.2 fL Mean Corpuscular Hemoglobin 30.8 pg Mean Corpuscular Hemoglobin Concent 32.0 g/dl Platelet Count 127 K/uL Mean Platelet Volume 9.0 fL Neutrophils (%) (Auto) 67.8 % Lymphocytes (%) (Auto) 20.2 % Monocytes (%) (Auto) 7.4 % Eosinophils (%) (Auto) 4.4 % Basophils (%) (Auto) 0.2 % Neutrophils # (Auto) 2.74 K/uL Lymphocytes # (Auto) 0.82 K/uL Monocytes # (Auto) 0.30 K/uL Eosinophils # (Auto) 0.18 K/uL Basophils # (Auto) 0.01 K/uL RDW Standard Deviation 55.5 fL RDW Coefficient of Variation 15.7 % Immature Granulocyte % (Auto) 0.0 % Immature Granulocyte # (Auto) 0.00 K/uL Sodium Level 135 mmol/L Potassium Level 6.5 mmol/L Chloride Level 101 mmol/L Carbon Dioxide Level 21 mmol/L Anion Gap 13.0 mmol/L Blood Urea Nitrogen 110 mg/dl Creatinine 13.00 mg/dl Est Creatinine Clear Calc Drug Dose 7.1 ml/min Estimated GFR () 3.9 Estimated GFR (Non- 3.4 BUN/Creatinine Ratio 8.5 Random Glucose 98 mg/dl Calcium Level 7.7 mg/dl Total Bilirubin 0.3 mg/dl Aspartate Amino Transf (AST/SGOT) 16 U/L Alanine Aminotransferase (ALT/SGPT) 30 U/L Alkaline Phosphatase 90 U/L Troponin I 0.037 ng/ml Total Protein 7.3 gm/dl Albumin 3.3 gm/dl Globulin 4.0 gm/dl Albumin/Globulin Ratio 0.8 Bedside Glucose 51 mg/dl 61 mg/dl 108 mg/dl Test 01/02/17 05:26 White Blood Count 2.24 K/uL Red Blood Count 2.71 M/uL Hemoglobin 8.6 g/dL Hematocrit 25.8 % Mean Corpuscular Volume 95.2 fL Mean Corpuscular Hemoglobin 31.7 pg Mean Corpuscular Hemoglobin Concent 33.3 g/dl Platelet Count 109 K/uL Mean Platelet Volume 8.5 fL RDW Standard Deviation 54.8 fL RDW Coefficient of Variation 15.8 % Neutrophils % (Manual) 63.7 % Lymphocytes % (Manual) 22.4 % Monocytes % (Manual) 7.8 % Eosinophils % (Manual) 5.2 % Basophils % (Manual) 0.9 % Neutrophils # (Manual) 1.43 K/uL Total Absolute Neutrophils 1.43 K/uL Lymphocytes # (Manual) 0.50 K/uL Total Absolute Lymphocytes 0.50 K/uL Monocytes # (Manual) 0.17 K/uL Eosinophils # (Manual) 0.12 K/uL Basophils # (Manual) 0.02 K/uL Ovalocytes 1+ Sodium Level 139 mmol/L Potassium Level 4.6 mmol/L Chloride Level 103 mmol/L Carbon Dioxide Level 28 mmol/L Anion Gap 8.0 mmol/L Blood Urea Nitrogen 62 mg/dl Creatinine 8.70 mg/dl Est Creatinine Clear Calc Drug Dose 10.5 ml/min Estimated GFR () 6.4 Estimated GFR (Non- 5.5 BUN/Creatinine Ratio 7.1 Random Glucose 86 mg/dl Calcium Level 7.3 mg/dl Magnesium Level 2.4 mg/dl Iron Level 43 mcg/dl Total Iron Binding Capacity 207 mcg/dl Transferrin 161 mg/dl Transferrin % Saturation 19 % Total Creatine Kinase 32 U/L Creatine Kinase MB 0.6 ng/ml Creatine Kinase MB Ratio 1.9 Troponin I 0.052 ng/ml Hepatitis B Surface Antigen NEG Hepatitis B Surface Antibody NEG Date/Time Source Procedure Growth Status 01/02/17 00:40 Nasal MRSA DNA Surveillance Screen - Final Specimen Negative for MRSA by DNA Probe Complete Assessment & Plan Syncope Possible related to electrolytes imbalance due to hyperkalemia, most likely secondary to hyperkalemia, prolonged QT. Missed HD on Saturday CT head showed no acute intracranial findings Denies any focal deficit Clinically stable Continue monitor in Telemetry Hyperkalemia K on admission was 6.5 Received Insulin, sodium bicarb Had emergent HD last night K is stable continue monitor BMP Chest pain Recently was treated for pericarditis and completed 1 month course of colchicine 2nd set of trop slightly elevated EKG did not shown any ischemic changes Continue tele monitor an continue to monitor CM 2Decho Ejection Fraction = 50-55%. * There is mild concentric left ventricular hypertrophy. * The left ventricular wall motion is normal. * There is trace tricuspid regurgitation. * The estimated systolic PAP is 35mmHg. ESRD on HD Missed HD on Saturday Had emergent HD last night will do routine HD today Nephrology Consulted Hypertension. Continue lisinopril and Coreg. IV hydralazine p.r.n. continue monitor BP Depression. Continue Lexapro Stable DVT Px On SCDs due to anemia CODE STATUS FULL CODE Consultants: Nephrology Current Inpatient Medications: Current Inpatient Medications Medications (Trade) Dose Ordered Sig/Sachin Route Start Time Stop Time Status Last Admin Dose Admin Acetaminophen (Tylenol Tab) 650 mg Q4H PRN PO 01/01/17 21:30 01/31/17 21:29 Al Hydrox/Mg Hydrox/Simethicone (Maalox Max Susp) 15 ml Q4H PRN PO 01/01/17 21:30 01/31/17 21:29 Nitroglycerin (Nitrostat Tab) 0.4 mg UD PRN SL 01/01/17 21:30 01/31/17 21:29 Albuterol (Ventolin Hfa Inhaler) 2 puffs QID PRN INH 01/01/17 21:30 01/31/17 21:29 Calcium Acetate (Phoslo Cap) 1,334 mg TIDM PO 01/02/17 07:30 02/01/17 07:59 01/02/17 11:19 1,334 MG Calcium Acetate (Phoslo Cap) 2,668 mg HS PO 01/02/17 21:00 02/01/17 20:59 Carvedilol (Coreg Tab) 3.125 mg BID PO 01/02/17 09:00 02/01/17 08:59 01/02/17 07:31 3.125 MG Escitalopram Oxalate (Lexapro Tab) 20 mg QAM PO 01/02/17 09:00 02/01/17 08:59 01/02/17 07:30 20 MG Lisinopril (Zestril Tab) 40 mg HS PO 01/02/17 21:00 02/01/17 20:59 Mirtazapine (Remeron Tab) 30 mg HS PO 01/02/17 21:00 02/01/17 20:59 Trazodone HCl (Desyrel Tab) 50 mg HS PO 01/02/17 21:00 02/01/17 20:59 01/02/17 07:30 50 MG Famotidine (Pepcid Tab) 40 mg DAILY PO 01/02/17 09:00 02/01/17 08:59 01/02/17 07:30 40 MG Hydralazine HCl (HydrALAZINE INJ) 10 mg Q6 PRN IV. 01/01/17 22:00 01/31/17 21:59 Miscellaneous (Iv Fluids Completed) 1 ea PRN PRN N/A 01/01/17 22:45 01/01/18 22:44 Morphine Sulfate (MoRPHine SULFATE INJ) 2 mg Q2H PRN IV 01/01/17 23:30 01/15/17 23:29 01/02/17 09:44 2 MG Heparin Sodium (Porcine) (Heparin Iv Bolus) 1,000 unit TODAY@0800 IV 01/02/17 08:00 01/02/17 23:59 Heparin Sodium (Porcine) 400 unit 400 unit TODAY@0800,0900,1000 IV 01/02/17 08:00 01/02/17 23:59 Epoetin Travis 73627 units/ Syringe 0.7 ml @ 1 mls/min TODAY@0800 IV. 01/02/17 08:00 01/02/17 23:59 Iron Sucrose/ Syringe (Venofer Inj/ Syringe) 5 ml @ 1 mls/min TODAY@0930 IV 01/02/17 09:30 01/02/17 18:00
[2017-01-02 13:53] LABS: CKMB/CK RATIO 1.8 (0-3.0)
--- NOTE | 2017-01-02 17:22 | Nephrology Consultation ---
Nephrology Consultation Date of Consultation: January 02, 2017. Attending Physician: Dr Lutz Requesting Physician: Dr Morgan Reason for Consultation: ESRD, hyperkalemia History of Present Illness 31 year old female w/ ESRD on HD MWF at [facility] admitted after syncopal episode yesterday; after ambulance brought her to ED she reported dyspnea and chest pain and was noted to have K 6.5. On 01/01 evening as she was getting up from a seated position and fell back and passed out for a few moments ; she was alone; denies bowel/bladder incontinence or shaking limbs. She then called 911 and was brought here. Head and chest imaging showed no acute processes. Emergent HD for 2hrs was done in addition to medical therapy for hyperkalemia. This AM K is 4.6. She had missed 12/31 HD d/t family obligation. Complex medical hx detailed below. This am pt states she had chest pain but improving w/ morphine when I saw her. Past Medical/Surgical History -end-stage renal disease on hemodialysis MWF via AVF under care of Dr. 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 due in part to adherence issues -hypertension -diabetes, diet controlled -anemia of chronic disease, baseline hemoglobin in 's -active tobacco abuse -recent suspected pericarditis late October for which she had one month course of colchicine -s/p nonemergent cholecystectomy late 2016 for chronic cholecystitis -anxiety/depression Family History Crohn's disease FATHER Diabetes mellitus MOTHER Hypertension SISTER Social History Smoking Status: Current Every Day Smoker Alcohol Use: none Drug Use: none Marital Status: in relationship Housing Status: lives with family, lives with significant other Occupation Status: disabled Allergies Coded Allergies: Cefaclor (Verified Allergy, Unknown, Rash, 01/01/17) Reported by PT. Medications Current Inpatient Medications Medications (Trade) Dose Ordered Sig/Sachin Route Start Time Stop Time Status Last Admin Dose Admin Epoetin Travis (Procrit Inj) 10,000 units TODAY@0800 IV. 01/02/17 08:00 01/02/17 12:00 01/02/17 00:24 10,000 UNITS Acetaminophen (Tylenol Tab) 650 mg Q4H PRN PO 01/01/17 21:30 01/31/17 21:29 Al Hydrox/Mg Hydrox/Simethicone (Maalox Max Susp) 15 ml Q4H PRN PO 01/01/17 21:30 01/31/17 21:29 Nitroglycerin (Nitrostat Tab) 0.4 mg UD PRN SL 01/01/17 21:30 01/31/17 21:29 Albuterol (Ventolin Hfa Inhaler) 2 puffs QID PRN INH 01/01/17 21:30 01/31/17 21:29 Calcium Acetate (Phoslo Cap) 1,334 mg TIDM PO 01/02/17 07:30 02/01/17 07:59 01/02/17 07:30 1,334 MG Calcium Acetate (Phoslo Cap) 2,668 mg HS PO 01/02/17 21:00 02/01/17 20:59 Carvedilol (Coreg Tab) 3.125 mg BID PO 01/02/17 09:00 02/01/17 08:59 01/02/17 07:31 3.125 MG Escitalopram Oxalate (Lexapro Tab) 20 mg QAM PO 01/02/17 09:00 02/01/17 08:59 01/02/17 07:30 20 MG Lisinopril (Zestril Tab) 40 mg HS PO 01/02/17 21:00 02/01/17 20:59 Mirtazapine (Remeron Tab) 30 mg HS PO 01/02/17 21:00 02/01/17 20:59 Trazodone HCl (Desyrel Tab) 50 mg HS PO 01/02/17 21:00 02/01/17 20:59 01/02/17 07:30 50 MG Famotidine (Pepcid Tab) 40 mg DAILY PO 01/02/17 09:00 02/01/17 08:59 01/02/17 07:30 40 MG Hydralazine HCl (HydrALAZINE INJ) 10 mg Q6 PRN IV. 01/01/17 22:00 01/31/17 21:59 Miscellaneous (Iv Fluids Completed) 1 ea PRN PRN N/A 01/01/17 22:45 01/01/18 22:44 Morphine Sulfate (MoRPHine SULFATE INJ) 2 mg Q2H PRN IV 01/01/17 23:30 01/15/17 23:29 01/02/17 05:43 2 MG Heparin Sodium (Porcine) (Heparin Iv Bolus) 1,000 unit TODAY@0800 IV 01/02/17 08:00 01/02/17 23:59 Heparin Sodium (Porcine) 400 unit 400 unit TODAY@0800,0900,1000 IV 01/02/17 08:00 01/02/17 23:59 Epoetin Travis/ Syringe (Procrit Inj/ Syringe) 0.7 ml @ 1 mls/min TODAY@0800 IV. 01/02/17 08:00 01/02/17 23:59 Home Meds and Scripts Medications Dose Route/Sig Max Daily Dose Days Date Category Pepcid (Famotidine) 40 Mg Tab 1 Tab PO DAILY 30 01/01/17 Rx Phoslo 667 Mg (Calcium Acetate) 667 Mg Cap 1,334 Mg PO WITH SNACKS 12/02/16 Reported Escitalopram Oxalate 20 Mg Tab 20 Mg PO QAM 12/02/16 Reported Coreg (Carvedilol) 3.125 Mg Tab 3.125 Mg PO BID 12/02/16 Reported Lisinopril 40 Mg Tab 40 Mg PO HS 12/02/16 Reported Trazodone (Trazodone HCl) 50 Mg Tab 50 Mg PO HS 11/18/16 Reported Phoslo 667 Mg (Calcium Acetate) 667 Mg Cap 2,668 Mg PO WITH MEALS 11/18/16 Reported Remeron (Mirtazapine) 30 Mg Tab 30 Mg PO HS 08/24/16 Reported Ventolin Hfa (Albuterol) 200 Puffs/92959 Mcg Aers 2 Puffs INH QID PRN 07/05/16 Reported Review of Systems Constitutional: + fatigue, + weakness, No fever Eyes: No worsening of vision ENT: No hearing loss Respiratory: No cough, No shortness of breath (improved after hd) Cardiac: + see HPI, No edema, No palpitations Abdomen: No constipation, No diarrhea, No nausea, No pain, No vomiting Musculoskeletal: No joint pain, No muscle pain Female : + problem reported (no change in chronic voiding habits) Neuro: No memory loss, No weakness Psych: No depression symptoms Heme: No abnormal bleeding/bruising Endo: + fatigue Skin: No new/changing skin lesions, No rash Physical Exam Date Time Temp Pulse Resp B/P Pulse Ox O2 Delivery O2 Flow Rate FiO2 01/02/17 08:28 36.8 66 18 139/66 96 01/02/17 04:00 97 Room Air 01/02/17 04:00 36.6 145/91 97 Room Air 01/02/17 02:01 36.6 75 149/96 01/02/17 01:15 76 153/90 01/02/17 01:00 74 152/90 01/02/17 00:45 75 149/87 01/02/17 00:30 77 145/92 01/02/17 00:17 81 144/86 01/02/17 00:00 82 138/89 01/02/17 00:00 36.5 82 18 98 Room Air 01/01/17 23:45 83 144/94 01/01/17 23:30 85 140/72 01/01/17 23:00 36.5 87 146/93 01/01/17 22:35 85 18 133/92 98 Room Air 01/01/17 21:47 94 18 152/115 98 Room Air 01/01/17 20:56 80 18 182/123 96 Room Air 01/01/17 20:07 88 01/01/17 19:13 100 Room Air 01/01/17 19:13 37.1 86 20 173/107 100 Room Air 24-Hour Column 01/02/17 07:59 Intake Total 120 ml Output Total 1700 ml Balance -1580 ml General Appearance: WD/WN, no apparent distress (on RA; maneuvers readily for exam) Eyes: EOMI ENT: hearing grossly normal Neck: supple Respiratory/Chest: lungs clear Cardiovascular: regular rate, rhythm, no edema Abdomen: normal bowel sounds, non tender, soft Extremities: no pedal edema, + pertinent finding (AVF L prox > + t/b) Neurologic/Psych: alert, normal mood/affect, oriented x 3 Skin: no jaundice, warm/dry, no rash Diagnostics Last 24 Hours Test 01/01/17 19:49 01/01/17 21:55 01/01/17 22:35 01/02/17 05:26 White Blood Count 4.05 K/uL 2.24 K/uL Red Blood Count 3.18 M/uL 2.71 M/uL Hemoglobin 9.8 g/dL 8.6 g/dL Hematocrit 30.6 % 25.8 % Mean Corpuscular Volume 96.2 fL 95.2 fL Mean Corpuscular Hemoglobin 30.8 pg 31.7 pg Mean Corpuscular Hemoglobin Concent 32.0 g/dl 33.3 g/dl Platelet Count 127 K/uL 109 K/uL Mean Platelet Volume 9.0 fL 8.5 fL Neutrophils (%) (Auto) 67.8 % Lymphocytes (%) (Auto) 20.2 % Monocytes (%) (Auto) 7.4 % Eosinophils (%) (Auto) 4.4 % Basophils (%) (Auto) 0.2 % Neutrophils # (Auto) 2.74 K/uL Lymphocytes # (Auto) 0.82 K/uL Monocytes # (Auto) 0.30 K/uL Eosinophils # (Auto) 0.18 K/uL Basophils # (Auto) 0.01 K/uL RDW Standard Deviation 55.5 fL 54.8 fL RDW Coefficient of Variation 15.7 % 15.8 % Immature Granulocyte % (Auto) 0.0 % Immature Granulocyte # (Auto) 0.00 K/uL Sodium Level 135 mmol/L 139 mmol/L Potassium Level 6.5 mmol/L 4.6 mmol/L Chloride Level 101 mmol/L 103 mmol/L Carbon Dioxide Level 21 mmol/L 28 mmol/L Anion Gap 13.0 mmol/L 8.0 mmol/L Blood Urea Nitrogen 110 mg/dl 62 mg/dl Creatinine 13.00 mg/dl 8.70 mg/dl Est Creatinine Clear Calc Drug Dose 7.1 ml/min 10.5 ml/min Estimated GFR () 3.9 6.4 Estimated GFR (Non- 3.4 5.5 BUN/Creatinine Ratio 8.5 7.1 Random Glucose 98 mg/dl 86 mg/dl Calcium Level 7.7 mg/dl 7.3 mg/dl Total Bilirubin 0.3 mg/dl Aspartate Amino Transf (AST/SGOT) 16 U/L Alanine Aminotransferase (ALT/SGPT) 30 U/L Alkaline Phosphatase 90 U/L Troponin I 0.037 ng/ml 0.052 ng/ml Total Protein 7.3 gm/dl Albumin 3.3 gm/dl Globulin 4.0 gm/dl Albumin/Globulin Ratio 0.8 Bedside Glucose 51 mg/dl 108 mg/dl Neutrophils % (Manual) 63.7 % Lymphocytes % (Manual) 22.4 % Monocytes % (Manual) 7.8 % Eosinophils % (Manual) 5.2 % Basophils % (Manual) 0.9 % Neutrophils # (Manual) 1.43 K/uL Total Absolute Neutrophils 1.43 K/uL Lymphocytes # (Manual) 0.50 K/uL Total Absolute Lymphocytes 0.50 K/uL Monocytes # (Manual) 0.17 K/uL Eosinophils # (Manual) 0.12 K/uL Basophils # (Manual) 0.02 K/uL Ovalocytes 1+ Magnesium Level 2.4 mg/dl Iron Level 43 mcg/dl Total Iron Binding Capacity 207 mcg/dl Transferrin 161 mg/dl Transferrin % Saturation 19 % Total Creatine Kinase 32 U/L Creatine Kinase MB 0.6 ng/ml Creatine Kinase MB Ratio 1.9 Hepatitis B Surface Antigen NEG Hepatitis B Surface Antibody NEG Diagnostic Radiology: CXR > no acute cardiopulmonary process Head CT > no acute intracranial process EKG: ECG > prolonged QT, NSR: unchanged from previous Assessment & Plan 31 y/o F w/ ESRD on MWF HD admitted for evaluation of syncopal episode followed by chest pain, dyspnea and hyperkalemia after missing dialysis ESRD -had urgent HD last evening; for routine HD today; next hd 01/04 as inpt or outpt depending on clinical status Hyperkalemia -resolved w/ tx > pls check bmp daily Anemia of chronic disease and pancytopenia -pancytopenia more pronounced past 6 mos; not neutropenic; pancytopenia stable but may warrant outpt evaluation -large dose epo and routine venofer w/ HD -monitor cbc at least q 48 hr Syncope and chest pain -per primary service; on monitor; doubt role for HTN or vol OL in chest discomfort this am Appreciate consult; will follow with you.
[2017-01-02] MEDS ORDERED: CALCIUM ACETATE 667MG GELCAP PO SCH (21:00)
[2017-01-02] MEDS ORDERED: MIRTAZAPINE TAB 15 MG TAB PO SCH (21:00)
[2017-01-02] MEDS ORDERED: LISINOPRIL 40 MG TAB PO SCH (21:00)
[2017-01-02] MEDS: CALCIUM CARBONATE 500 MG CHEWABLE PO SCH (21:58)
[2017-01-03 03:56] VITALS: BP 168/96; PULSE 81; TEMP 36.3; O2SAT 96
[2017-01-03] MEDS: FAMOTIDINE 20 MG TAB PO SCH (07:24)
[2017-01-03] MEDS: CARVEDILOL 3.125 MG TAB PO SCH (07:24)
[2017-01-03] MEDS: CALCIUM CARBONATE 500 MG CHEWABLE PO SCH (07:24)
[2017-01-03] MEDS: CALCIUM ACETATE 667MG GELCAP PO SCH ×2 (07:24→11:07)
[2017-01-03] MEDS: ESCITALOPRAM OXALATE 20 MG TAB PO SCH (07:24)
[2017-01-03] MEDS: MoRPHine SULFATE 2 MG/ML CARP IV PRN (07:28)
[2017-01-03 07:49] VITALS: BP 151/98; PULSE 85; TEMP 36.8; O2SAT 98
[2017-01-03 08:00] VITALS: O2SAT 98
[2017-01-03 08:37] LABS: BASO ABS # 0.03 K/uL (0-0.2); COMPLETE YES; EOS % 2.7 %; GIANT PLATELETS 1+; HEMATOCRIT 33.9 % (37-47); IG% 2.7 %; LARGE PLATELETS 2+; LYMPH % 22.7 %; LYMPH ABS # 0.67 K/uL (1.2-3.4); MEAN CELL VOLUME 97.4 fL (80-100); MEAN CORPUSCULAR HEMOGLOBIN 31.6 pg (25-34); MEAN CORPUSCULAR HGB CONC 32.4 g/dl (32-36); MEAN PLATELET VOLUME 11.3 fL (7.4-10.4); MONO % 5.8 %; NEUT % 65.1 %; PLATELET COUNT 124 K/uL (130-400); RED BLOOD COUNT 3.48 M/uL (4.2-5.4); WHITE BLOOD COUNT 2.95 K/uL (4.8-10.8)
[2017-01-03 08:43] LABS: BLOOD UREA NITROGEN 31 mg/dl (7-18); BUN/CREATININE RATIO 4.9 (10-20); CALCIUM 8.8 mg/dl (8.5-10.1); CARBON DIOXIDE 28 mmol/L (21-32); CHLORIDE 102 mmol/L (98-107); GLUCOSE 75 mg/dl (70-99); SODIUM 138 mmol/L (136-145)
[2017-01-03 10:05] LABS: POTASSIUM 5.2 mmol/L (3.5-5.1)
[2017-01-03 10:08] LABS: MAGNESIUM 2.4 mg/dl (1.8-2.4)
[2017-01-03 11:37] VITALS: BP 170/100; PULSE 86; TEMP 36.9; O2SAT 99
--- NOTE | 2017-01-03 12:04 | Progress Note ---
Medicine Progress Note Date & Time of Visit: January 03, 2017 at 12:00. Subjective Pt was seen and examined Lying in bed with no distress Pt said that her breathing feels much better She denies any SOB, palpitation and dizziness Objective Last 8 Hrs Date Time Temp Pulse Resp B/P Pulse Ox O2 Delivery O2 Flow Rate FiO2 01/03/17 11:37 36.9 86 18 170/100 99 01/03/17 08:00 98 Room Air 01/03/17 07:49 36.8 85 18 151/98 98 Physical Exam: General- No acute distress Head- atraumatic Eyes- PERRL, EOMI ENT- oropharynx clear Neck- supple, no JVD Lungs- No wheezing, no crackles Heart- regular rhythm Abdomen- normal bowel sounds, soft Extremities- no pretibial edema, no calf tenderness Neuro- alert, oriented x 3; PERRL, EOMI; no facial palsy Skin- warm & dry Laboratory Results: Last 24 Hours Test 01/02/17 13:10 01/03/17 07:31 01/03/17 09:30 Total Creatine Kinase 33 U/L Creatine Kinase MB 0.6 ng/ml Creatine Kinase MB Ratio 1.8 Troponin I 0.050 ng/ml White Blood Count 2.95 K/uL Red Blood Count 3.48 M/uL Hemoglobin 11.0 g/dL Hematocrit 33.9 % Mean Corpuscular Volume 97.4 fL Mean Corpuscular Hemoglobin 31.6 pg Mean Corpuscular Hemoglobin Concent 32.4 g/dl Platelet Count 124 K/uL Mean Platelet Volume 11.3 fL Neutrophils (%) (Auto) 65.1 % Lymphocytes (%) (Auto) 22.7 % Monocytes (%) (Auto) 5.8 % Eosinophils (%) (Auto) 2.7 % Basophils (%) (Auto) 1.0 % Neutrophils # (Auto) 1.92 K/uL Lymphocytes # (Auto) 0.67 K/uL Monocytes # (Auto) 0.17 K/uL Eosinophils # (Auto) 0.08 K/uL Basophils # (Auto) 0.03 K/uL RDW Standard Deviation 56.4 fL RDW Coefficient of Variation 15.7 % Immature Granulocyte % (Auto) 2.7 % Immature Granulocyte # (Auto) 0.08 K/uL Large Platelets 2+ Giant Platelets 1+ Sodium Level 138 mmol/L Potassium Level mmol/L 5.2 mmol/L Chloride Level 102 mmol/L Carbon Dioxide Level 28 mmol/L Anion Gap 8.0 mmol/L Blood Urea Nitrogen 31 mg/dl Creatinine 6.40 mg/dl Est Creatinine Clear Calc Drug Dose 14.1 ml/min Estimated GFR () 9.2 Estimated GFR (Non- 8.0 BUN/Creatinine Ratio 4.9 Random Glucose 75 mg/dl Calcium Level 8.8 mg/dl Magnesium Level mg/dl 2.4 mg/dl Assessment & Plan Syncope Possible related to electrolytes imbalance due to hyperkalemia, most likely secondary to hyperkalemia, prolonged QT. Missed HD on Saturday CT head showed no acute intracranial findings Denies any focal deficit Clinically stable Hyperkalemia K on admission was 6.5 Received Insulin, sodium bicarb Had emergent HD last night K is stable continue monitor BMP Chest pain Recently was treated for pericarditis and completed 1 month course of colchicine EKG did not shown any ischemic changes Continue tele monitor an continue to monitor CM 2Decho Ejection Fraction = 50-55%. * There is mild concentric left ventricular hypertrophy. * The left ventricular wall motion is normal. * There is trace tricuspid regurgitation. * The estimated systolic PAP is 35mmHg. ESRD on HD Missed HD on Saturday Had emergent HD on Saturday night Had routine HD yesterday Resume regular HD on Saturday (tomorrow) Hypertension. Continue lisinopril and Coreg. IV hydralazine p.r.n. continue monitor BP Depression. Continue Lexapro Stable DVT Px On SCDs due to anemia CODE STATUS FULL CODE Consultants: Nephrology Current Inpatient Medications: Current Inpatient Medications Medications (Trade) Dose Ordered Sig/Sachin Route Start Time Stop Time Status Last Admin Dose Admin Acetaminophen (Tylenol Tab) 650 mg Q4H PRN PO 01/01/17 21:30 01/31/17 21:29 Al Hydrox/Mg Hydrox/Simethicone (Maalox Max Susp) 15 ml Q4H PRN PO 01/01/17 21:30 01/31/17 21:29 Nitroglycerin (Nitrostat Tab) 0.4 mg UD PRN SL 01/01/17 21:30 01/31/17 21:29 Albuterol (Ventolin Hfa Inhaler) 2 puffs QID PRN INH 01/01/17 21:30 01/31/17 21:29 Calcium Acetate (Phoslo Cap) 1,334 mg TIDM PO 01/02/17 07:30 02/01/17 07:59 01/03/17 11:07 1,334 MG Calcium Acetate (Phoslo Cap) 2,668 mg HS PO 01/02/17 21:00 02/01/17 20:59 01/02/17 20:21 2,668 MG Carvedilol (Coreg Tab) 3.125 mg BID PO 01/02/17 09:00 02/01/17 08:59 01/03/17 07:24 3.125 MG Escitalopram Oxalate (Lexapro Tab) 20 mg QAM PO 01/02/17 09:00 02/01/17 08:59 01/03/17 07:24 20 MG Lisinopril (Zestril Tab) 40 mg HS PO 01/02/17 21:00 02/01/17 20:59 01/02/17 20:21 40 MG Mirtazapine (Remeron Tab) 30 mg HS PO 01/02/17 21:00 02/01/17 20:59 01/02/17 20:20 30 MG Trazodone HCl (Desyrel Tab) 50 mg HS PO 01/02/17 21:00 02/01/17 20:59 01/02/17 21:59 50 MG Famotidine (Pepcid Tab) 40 mg DAILY PO 01/02/17 09:00 02/01/17 08:59 01/03/17 07:24 40 MG Hydralazine HCl (HydrALAZINE INJ) 10 mg Q6 PRN IV. 01/01/17 22:00 01/31/17 21:59 01/02/17 23:23 10 MG Miscellaneous (Iv Fluids Completed) 1 ea PRN PRN N/A 01/01/17 22:45 01/01/18 22:44 Morphine Sulfate (MoRPHine SULFATE INJ) 2 mg Q2H PRN IV 01/01/17 23:30 01/15/17 23:29 01/03/17 07:28 2 MG Calcium Carbonate (Tums Chew Tab) 500 mg TID PO 01/02/17 22:00 02/01/17 21:59 01/03/17 07:24 500 MG
[2017-01-03 12:08] VITALS: BP 170/100; PULSE 86; TEMP 36.9; O2SAT 99
--- NOTE | 2017-01-03 12:13 | Discharge Instructions ---
Discharge Instructions Date of Service January 03, 2017. Admission Reason for Admission: Hyperkalemia, Syncope Discharge Discharge Diagnosis / Problem: Syncope, ESRD on HD, Hyperkalemia, Chest pain, High troponin, Hypertension Discharge Goals Goal(s): Decrease discomfort, Improve function, Improve disease control Activity Recommendations Activity Limitations: resume your previous activity . Instructions / Follow-Up Instructions / Follow-Up Follow up with your primary care provider Dr. Aldridge on 01/08 @ 11:05 Resume your routine hemodialysis ( next hemodialysis is tomorrow) Current Hospital Diet Patient's current hospital diet: Renal Diet Discharge Diet Recommended Diet: Low Sodium Diet (2gm Na), Renal Diet Pending Studies Studies pending at discharge: no Medical Emergencies . Who to Call and When: Medical Emergencies: If at any time you feel your situation is an emergency, please call 911 immediately. . Non-Emergent Contact Non-Emergency issues call your: Primary Care Provider Call Non-Emergent contact if: you have any medication questions . . "Provider Documentation" section prepared by Ambreen Lutz. . VTE Core Measure Inpt VTE Proph given/why not?: SCD's
--- NOTE | 2017-01-06 18:31 | Discharge Summary ---
Discharge Summary Date of Service January 06, 2017. Discharge Summary Admission Date: January 01, 2017 at 21:36 Discharge Date: January 03, 2017 Discharge Disposition: Home Principal Diagnosis: SYNCOPE Secondary Diagnoses/Problems: Syncope ESRD on HD Hyperkalemia Chest pain High troponin Hypertension Procedures: CT HEAD WITHOUT CONTRAST (CT) CLINICAL HISTORY: syncope COMPARISON STUDY: 07-11 TECHNIQUE: Axial CT of the brain is performed from the vertex to the skull base. IV contrast was not administered for this examination. CT DOSE: 537.48 mGy.cm FINDINGS: No intra or extra-axial mass lesions are visualized. There is no CT evidence of acute cortical infarction. There is no evidence of midline shift. There is no acute hemorrhage. No calvarial fractures are visualized. There is no evidence of pathologic ventricular dilatation. There is moderate sphenoid sinus mucosal thickening. IMPRESSION: No acute intracranial findings Electronically signed by: Win Foster M.D. 01/01/2017 8:04 PM Dictated Date/Time: 01/01/2017 8:03 PM CHEST ONE VIEW PORTABLE CLINICAL HISTORY: Respiratory distress COMPARISON STUDY: 12/29/2016 FINDINGS: The heart is enlarged. There is no focal pulmonary consolidation. There are no pleural effusions. There is no failure. There is no pneumothorax.[ IMPRESSION: Mild cardiomegaly. No acute findings. Electronically signed by: Win Foster M.D. 01/01/2017 7:45 PM Dictated Date/Time: 01/01/2017 7:44 PM Consultations: Nephrology Medication Reconciliation Continued Medications: Albuterol Hfa (Ventolin Hfa) 200 Puffs/[id number] Mcg Aers 2 PUFFS INH QID PRN for Allergy Symptoms, INHALER Calcium Acetate (Phoslo 667 Mg) 667 Mg Cap 2668 MG PO WITH MEALS, CAP Calcium Acetate (Phoslo 667 Mg) 667 Mg Cap 1334 MG PO WITH SNACKS, CAP Carvedilol (Coreg) 3.125 Mg Tab 3.125 MG PO BID Escitalopram Oxalate (Escitalopram Oxalate) 20 Mg Tab 20 MG PO QAM Famotidine (Pepcid) 40 Mg Tab 1 TAB PO DAILY for 30 Days, #30 TAB 3 Refills Lisinopril (Lisinopril) 40 Mg Tab 40 MG PO HS Mirtazapine (Remeron) 30 Mg Tab 30 MG PO HS Trazodone Hcl (Trazodone) 50 Mg Tab 50 MG PO HS, TAB Admission Information HPI (per Admitting provider): CHIEF COMPLAINT: Syncope. HISTORY OF PRESENT ILLNESS: This is a 31-year-old female with past medical history significant for end-stage renal disease on hemodialysis, history of FSGS status post rejected kidney transplant, hypertension; diabetes, diet controlled; chronic anemia, baseline hemoglobin 8; ongoing tobacco abuse, recent history of pericarditis for which she is on colchicine a course of 1 month and recently had a cholecystectomy a couple of weeks ago, presents with syncope. The patient missed her dialysis yesterday because she had a family meeting and today in the evening when she got up from the bed from her couch, she fell back, says she lost consciousness for few moments and then she was back to normal her usual self.Then called 911 and came to the ER. At that time, she also had some shortness of breath and chest pain, although symptoms resolved after the patient was given morphine in the ER. Currently resting comfortably, hemodynamically stable. Blood pressures running on the higher side. Denies any headaches. No blurred visions. Has some dizziness. No shortness of breath or chest pain this time. No fever, no chills, no cough, no nausea, no vomiting. Had a couple of episodes of diarrhea today. No abdominal pain. Physical Exam (per Admitting): PHYSICAL EXAMINATION: GENERAL: The patient is alert and oriented, not in distress. VITAL SIGNS: Temperature 37.1, pulse 80, respiratory rate 18, blood pressure 182/123, oxygen 96% room air. HEENT: No pallor, no icterus. Pupils equal, round, and reactive to light. NECK: No JVD, no neck masses, no carotid bruits. CARDIOVASCULAR: S1, S2 heard, regular rate and rhythm, no murmur, no gallop. RESPIRATORY SYSTEM: Clear to auscultation bilaterally. No wheezing, no crackles. ABDOMEN: Soft, bowel sounds present. Nontender. No distention. CENTRAL NERVOUS SYSTEM: Cranial nerves II-XII grossly intact. Nonfocal. EXTREMITIES: No edema, no erythema. Hospital Course Syncope Possible related to electrolytes imbalance due to hyperkalemia, most likely secondary to hyperkalemia, prolonged QT. Missed HD on Saturday CT head showed no acute intracranial findings Denies any focal deficit Clinically stable Hyperkalemia K on admission was 6.5 Received Insulin, sodium bicarb Had emergent HD last night K is stable continue monitor BMP Chest pain Recently was treated for pericarditis and completed 1 month course of colchicine EKG did not shown any ischemic changes Continue tele monitor an continue to monitor CM 2Decho Ejection Fraction = 50-55%. * There is mild concentric left ventricular hypertrophy. * The left ventricular wall motion is normal. * There is trace tricuspid regurgitation. * The estimated systolic PAP is 35mmHg. ESRD on HD Missed HD on Saturday Had emergent HD on Saturday night Had routine HD yesterday Resume regular HD on Saturday (tomorrow) Hypertension. Continue lisinopril and Coreg. IV hydralazine p.r.n. continue monitor BP Depression. Continue Lexapro Stable DVT Px On SCDs due to anemia CODE STATUS FULL CODE Total time spent on discharge = 35 MINUTES This includes examination of the patient, discharge planning, medication reconciliation, and communication with other providers. Discharge Instructions Discharge Instructions Date of Service January 03, 2017. Admission Reason for Admission: Hyperkalemia, Syncope Discharge Discharge Diagnosis / Problem: Syncope, ESRD on HD, Hyperkalemia, Chest pain, High troponin, Hypertension Discharge Goals Goal(s): Decrease discomfort, Improve function, Improve disease control Activity Recommendations Activity Limitations: resume your previous activity . Instructions / Follow-Up Instructions / Follow-Up Follow up with your primary care provider Dr. Aldridge on 01/08 @ 11:05 Resume your routine hemodialysis ( next hemodialysis is tomorrow) Current Hospital Diet Patient's current hospital diet: Renal Diet Discharge Diet Recommended Diet: Low Sodium Diet (2gm Na), Renal Diet Pending Studies Studies pending at discharge: no Medical Emergencies . Who to Call and When: Medical Emergencies: If at any time you feel your situation is an emergency, please call 911 immediately. . Non-Emergent Contact Non-Emergency issues call your: Primary Care Provider Call Non-Emergent contact if: you have any medication questions . . "Provider Documentation" section prepared by Ambreen Lutz. . VTE Core Measure Inpt VTE Proph given/why not?: SCD's Additional Copies To Adolph Aldridge M.D.
[2017-01-25] MEDS ORDERED: CRG625 PO (11:09)
[2017-02-06] MEDS ORDERED: LISI40TA PO (07:33)
[2017-02-12] MEDS ORDERED: AMOX875T PO (12:45)
[2017-02-14] MEDS ORDERED: DOXY100C76 PO (15:33)
[2017-02-21] MEDS ORDERED: OXYC-57 PO (15:28)
[2017-02-28] MEDS ORDERED: AMLO-114 PO (08:43)
[2017-03-06] MEDS ORDERED: CARV3.122 PO (10:28)
[2017-03-08] MEDS ORDERED: ZFRODT4HP PO (15:53)
[2017-03-20] MEDS ORDERED: DOXY100T PO (14:35)
[2017-03-20] MEDS ORDERED: TOBR0.3S4 OPL (14:35)
[2017-05-15] MEDS ORDERED: VNTHFA/IN INH (12:28)
[2017-05-15] MEDS ORDERED: LISI-725 PO (13:43)
[2017-05-15] MEDS ORDERED: CALC500C3 PO (13:50)
[2017-05-15] MEDS ORDERED: CRG125 PO (15:17)
[2017-05-15] MEDS ORDERED: NRV/5 PO (15:17)
[2017-05-15] MEDS ORDERED: BENZ100C7 PO (15:22)
[2017-05-15] MEDS ORDERED: FLUT0.15 NAE (15:33)
[2017-05-15] MEDS ORDERED: CALC0.5C PO (18:14)
[2017-05-15] MEDS ORDERED: MIRT30TA3 PO (19:24)
[2017-05-15] MEDS ORDERED: CALC667C4 PO ×2 (19:56→21:12)
[2017-05-15] MEDS ORDERED: TRAZ50TA35 PO (19:56)
[2017-05-15] MEDS ORDERED: LXP/20 PO (21:08)
[2017-05-15] MEDS ORDERED: FAMO40TA6 PO (23:12)
[2017-05-17] MEDS ORDERED: CRG25 PO (14:53)
[2017-05-21] MEDS ORDERED: APR25 PO (00:24)
[2017-05-21] MEDS ORDERED: ATV1 PO (15:28)
[2017-05-21] MEDS ORDERED: APR50 PO (15:28)
[2017-05-21] MEDS ORDERED: ativan PO (16:06)
[2017-06-11] MEDS ORDERED: LORA-741 PO (07:51)
[2017-06-11] MEDS ORDERED: VORT1TAB PO (07:51)
== END 2017-01-03 12:30 | disposition home or self-care (01) | DRG 640 ==
LOC: ENRESERVTM → ENRESERVDT → EDBD 18:50 → C.EDA 18:51 → C.2T 21:36 → EDBEDREQ 21:40
PROVIDERS: ADMIT Internal Medicine; ATTEND Internal Medicine
DX: E87.5 Hyperkalemia (principal); N18.6 End stage renal disease; Z94.0 Kidney transplant status; D61.818 Other pancytopenia; I12.0 Hypertensive chronic kidney disease with stage 5 chronic kidney disease or end stage renal disease; I45.81 Long QT syndrome; R55 Syncope and collapse; R07.9 Chest pain, unspecified; D63.1 Anemia in chronic kidney disease; R79.89 Other specified abnormal findings of blood chemistry; F32.9 Major depressive disorder, single episode, unspecified; F17.210 Nicotine dependence, cigarettes, uncomplicated; G43.909 Migraine, unspecified, not intractable, without status migrainosus; E11.22 Type 2 diabetes mellitus with diabetic chronic kidney disease; Z99.2 Dependence on renal dialysis; Z95.828 Presence of other vascular implants and grafts; Z86.79 Personal history of other diseases of the circulatory system; Z90.49 Acquired absence of other specified parts of digestive tract; Z79.899 Other long term (current) drug therapy

== ENCOUNTER 2017-01-07 09:39 | Emergency (ER) | payer OTHER ==
[~2017-01-07] VITALS: Ht 167.6 cm; Wt 73.0 kg
[~2017-01-07 09:39] MED LIST changes: +FAMO40TA6 PO
[2017-01-07 09:45] VITALS: TEMP 36.8; Ht 167.6 cm; Wt 73.0 kg
[2017-01-07 10:42] LABS: BASO % 0.2 %; BASO ABS # 0.01 K/uL (0-0.2); COMPLETE YES; EOS % 4.1 %; HEMATOCRIT 31.2 % (37-47); IG% 0.2 %; LYMPH % 20.6 %; LYMPH ABS # 0.95 K/uL (1.2-3.4); MEAN CELL VOLUME 97.5 fL (80-100); MEAN CORPUSCULAR HEMOGLOBIN 32.2 pg (25-34); MEAN PLATELET VOLUME 10.1 fL (7.4-10.4); MONO % 5.6 %; NEUT % 69.3 %; PLATELET COUNT 180 K/uL (130-400); WHITE BLOOD COUNT 4.62 K/uL (4.8-10.8)
[2017-01-07 11:02] LABS: CALCIUM 8.3 mg/dl (8.5-10.1)
[2017-01-07 11:11] LABS: BLOOD UREA NITROGEN 64 mg/dl (7-18); BUN/CREATININE RATIO 5.8 (10-20); CARBON DIOXIDE 31 mmol/L (21-32); CHLORIDE 97 mmol/L (98-107); GLUCOSE 85 mg/dl (70-99); SODIUM 137 mmol/L (136-145)
--- NOTE | 2017-01-07 11:38 | DIAGNOSTIC IMAGING REPORT ---
VENOUS DOPPLER LEFT ARM UPPER EXTREMITY VENOUS DOPPLER HISTORY: Pain. Edema. swelling lues COMPARISON STUDY: None. FINDINGS: The internal jugular vein is patent. There is normal flow within the subclavian vein. There is normal flow and compressibility within the left axillary, basilic, brachial, radial, ulnar, and visualized cephalic veins. IMPRESSION: No DVT within the upper extremity. Electronically signed by: Adolph Rizo M.D. 01/07/2017 11:37 AM Dictated Date/Time: 01/07/2017 11:35 AM
--- NOTE | 2017-01-07 11:45 | DIAGNOSTIC IMAGING REPORT ---
Arterial Doppler DUPLEX HEMODIALYSIS ACCESS CLINICAL HISTORY: swelling lues w/ fistula pain. Edema. TECHNIQUE: Doppler COMPARISON STUDY: 12/02/2016 FINDINGS: No major change in the prior study. The fistula is patent. Increased velocities on the arterial component of the shunt appears similar. No significant soft tissue edematous change currently. IMPRESSION: 1. No major change in the prior study. 2. Unchanging increase in velocities proximal to the fistula. 3. The fistula remains patent. 4. No evidence for abscess or collection within the soft tissues. Electronically signed by: Adolph Rizo M.D. 01/07/2017 11:44 AM Dictated Date/Time: 01/07/2017 11:40 AM
[2017-01-07] MEDS ORDERED: ACETAMINOPHEN 500 MG TAB PO STA (11:53)
[2017-01-07 12:01] VITALS: BP 161/102; PULSE 77; O2SAT 99
[2017-01-07 12:29] LABS: POTASSIUM 5.6 mmol/L (3.5-5.1)
--- NOTE | 2017-01-07 14:36 | EMERGENCY ROOM VISIT NOTE ---
History Report prepared by Katia: Simi Card Under the Supervision of: Dr. Berry Alves D.O. First contact with patient: 09:52 Chief Complaint: ARM PAIN Stated Complaint: LEFT ARM PAIN AND SWELLING History of Present Illness The patient is a 31 year old female who presents to the Emergency Room with complaints of worsening distal posterior left arm pain that started this morning. The patient denies any pain on her fistula. The patient states that she is also experiencing left hand fullness. Pt denies headache, fevers, chest pain, shortness of breath, nausea, vomiting, diarrhea, weakness, numbness, and pain with urination. She has not noticed any erythema around her fistula, but she states that the area feels warm to the touch. The patient states that she experienced similar symptoms in the past when she had a skin infection around her fistula. She states that when she had that infection, her skin was not erythematous and the doctor thought that she was bleeding out of her fistula. The patient's most recent dialysis was 3 days ago and it went well. She was able to receive her full 3 hour treatment. She is due for dialysis today at 1015 , but she states that they know she is here and told her to get her arm taken care of first. The patient denies any history of blood clots. Source of History: patient Onset: this morning Position: arm (left, distal, posterior) Quality: other (distal posterior left arm pain) Timing: worsening Associated Symptoms: No SOB, No chest pain, No diarrhea, No fevers, No headache, No nausea, No numbness, No urinary symptoms (pain with urination), No vomiting, No weakness Note: left hand fullness Review of Systems See HPI for pertinent positives & negatives. A total of 10 systems reviewed and were otherwise negative. Past Medical & Surgical Medical Problems: (1) CKD (chronic kidney disease) stage V requiring chronic dialysis (2) DM2 (diabetes mellitus, type 2) (3) Focal segmental glomerulosclerosis (4) HTN (hypertension) (5) Hyperkalemia (6) Migraine (7) Renal failure (8) Syncope Surgical Problems: (1) H/O knee surgery (2) H/O tubal ligation (3) H/O: (4) Kidney transplant status, living related donor Social History Problems: (1) Kidney transplanted Family History Crohn's disease FATHER Diabetes mellitus MOTHER Hypertension SISTER Social History Smoking Status: Current Every Day Smoker Alcohol Use: none Drug Use: none Marital Status: in relationship Housing Status: lives with family, lives with significant other Occupation Status: disabled Current/Historical Medications Scheduled Calcium Acetate (Phoslo 667 Mg), 2,668 MG PO WITH MEALS Calcium Acetate (Phoslo 667 Mg), 1,334 MG PO WITH SNACKS Carvedilol (Coreg), 3.125 MG PO BID Escitalopram Oxalate (Escitalopram Oxalate), 20 MG PO QAM Famotidine (Pepcid), 1 TAB PO DAILY Lisinopril (Lisinopril), 40 MG PO HS Mirtazapine (Remeron), 30 MG PO HS Trazodone Hcl (Trazodone), 50 MG PO HS Scheduled PRN Albuterol Hfa (Ventolin Hfa), 2 PUFFS INH QID PRN for Allergy Symptoms Allergies Coded Allergies: Cefaclor (Verified Allergy, Unknown, Rash, 01/01/17) Reported by PT. Physical Exam Vital Signs Date Time Temp Pulse Resp B/P Pulse Ox O2 Delivery O2 Flow Rate FiO2 01/07/17 12:01 77 18 161/102 99 Room Air 01/07/17 11:49 80 165/103 99 01/07/17 09:45 36.8 88 18 158/105 100 Room Air Physical Exam GENERAL: alert, sitting up in bed, well appearing, well nourished, no acute distress, non-toxic EYE EXAM: normal conjunctiva OROPHARYNX: no exudate, no erythema, lips, buccal mucosa, and tongue normal and mucous membranes are moist NECK: supple, no nuchal rigidity, no adenopathy, non-tender LUNGS: Clear to auscultation. Normal chest wall mechanics HEART: no murmurs, S1 normal and S2 normal ABDOMEN: abdomen soft, non-tender, normo-active bowel sounds, no masses, no rebound or guarding. BACK: Back is symmetrical on inspection and there is no deformity, no midline tenderness, no CVA tenderness. SKIN: no rashes and no bruising UPPER EXTREMITIES: Left upper extremity has a fistula in place with positive thrill and bruit, no significant edema or swelling, mild fullness of left hand, no surrounding erythema or induration. LOWER EXTREMITIES: No pitting edema. NEURO EXAM: Normal sensorium Medical Decision & Procedures ER Provider Diagnostic Interpretation: Radiology results as stated below per my review and the radiologist's interpretation: Arterial Doppler DUPLEX HEMODIALYSIS ACCESS FINDINGS: No major change in the prior study. The fistula is patent. Increased velocities on the arterial component of the shunt appears similar. No significant soft tissue edematous change currently. IMPRESSION: 1. No major change in the prior study. 2. Unchanging increase in velocities proximal to the fistula. 3. The fistula remains patent. 4. No evidence for abscess or collection within the soft tissues. Electronically signed by: Adolph Rizo M.D. 01/07/2017 11:44 AM Dictated Date/Time: 01/07/2017 11:40 AM VENOUS DOPPLER LEFT ARM UPPER EXTREMITY VENOUS DOPPLER FINDINGS: The internal jugular vein is patent. There is normal flow within the subclavian vein. There is normal flow and compressibility within the left axillary, basilic, brachial, radial, ulnar, and visualized cephalic veins. IMPRESSION: No DVT within the upper extremity. Electronically signed by: Adolph Rizo M.D. 01/07/2017 11:37 AM Dictated Date/Time: 01/07/2017 11:35 AM Laboratory Results 01/07/17 10:28 Red Blood Count 3.20, Mean Corpuscular Volume 97.5, Mean Corpuscular Hemoglobin 32.2, Mean Corpuscular Hemoglobin Concent 33.0, Mean Platelet Volume 10.1, Neutrophils (%) (Auto) 69.3, Lymphocytes (%) (Auto) 20.6, Monocytes (%) (Auto) 5.6, Eosinophils (%) (Auto) 4.1, Basophils (%) (Auto) 0.2, Neutrophils # (Auto) 3.20, Lymphocytes # (Auto) 0.95, Monocytes # (Auto) 0.26, Eosinophils # (Auto) 0.19, Basophils # (Auto) 0.01 01/07/17 10:28 01/07/17 11:59 Test 01/07/17 10:28 01/07/17 11:59 White Blood Count 4.62 K/uL (4.8-10.8) Red Blood Count 3.20 M/uL (4.2-5.4) Hemoglobin 10.3 g/dL (12.0-16.0) Hematocrit 31.2 % (37-47) Mean Corpuscular Volume 97.5 fL (80-100) Mean Corpuscular Hemoglobin 32.2 pg (25-34) Mean Corpuscular Hemoglobin Concent 33.0 g/dl (32-36) Platelet Count 180 K/uL (130-400) Mean Platelet Volume 10.1 fL (7.4-10.4) Neutrophils (%) (Auto) 69.3 % Lymphocytes (%) (Auto) 20.6 % Monocytes (%) (Auto) 5.6 % Eosinophils (%) (Auto) 4.1 % Basophils (%) (Auto) 0.2 % Neutrophils # (Auto) 3.20 K/uL (1.4-6.5) Lymphocytes # (Auto) 0.95 K/uL (1.2-3.4) Monocytes # (Auto) 0.26 K/uL (0.11-0.59) Eosinophils # (Auto) 0.19 K/uL (0-0.5) Basophils # (Auto) 0.01 K/uL (0-0.2) RDW Standard Deviation 55.1 fL (36.4-46.3) RDW Coefficient of Variation 15.6 % (11.5-14.5) Immature Granulocyte % (Auto) 0.2 % Immature Granulocyte # (Auto) 0.01 K/uL (0.00-0.02) Anion Gap 9.0 mmol/L (3-11) Est Creatinine Clear Calc Drug Dose 7.6 ml/min Estimated GFR () 4.8 Estimated GFR (Non- 4.1 BUN/Creatinine Ratio 5.8 (10-20) Calcium Level 8.3 mg/dl (8.5-10.1) Chemistry Specimen Hemolysis Laboratory results per my review. Medications Administered Medications (Trade) Dose Ordered Sig/Sachin Route Start Time Stop Time Status Last Admin Dose Admin Acetaminophen (Tylenol Tab) 1,000 mg NOW STAT PO 01/07/17 11:53 01/07/17 11:54 DC 01/07/17 12:03 1,000 MG ED Course ED COURSE: Vital signs were reviewed and showed normal. The patients medical record was reviewed The above diagnostic studies were performed and reviewed. ED treatments and interventions as stated above. 1003: The patient was evaluated in room C4. A complete history and physical examination was performed. 1153: Ordered Tylenol Tab 1000 mg PO 1232: Care management has setup an appointment for the patient at dialysis. 1235: Upon reevaluation, the patient is doing well. I discussed my findings with the patient and she understands and agrees with the treatment plan. Based on the patients age, coexisting illnesses, exam and lab findings the decision to treat as an outpatient was made. The patient remained stable while under my care. The patient appeared well at the time of discharge. Medical Decision Differential diagnoses includes but is not limited to DVT, musculoskeletal, infection, joint effusion, trauma, lymphedema, idiopathic, CHF. Patient is a 31-year-old female who presents the ER for swelling/pain her left upper extremity where her dialysis fistula is present. This has been present for an extended period of time and is her third fistula. Positive thrill and bruit. Duplex of the left upper extremity associated with fistula evaluation was negative and unchanged from her previous. CBC along with BMP shows a mild hyperkalemia at 5.6. Care management set up an appointment for her dialysis as soon as she leaves here today. Patient was able to arrange transport. Patient was discharged to dialysis. Discussed with Pt concerning signs and symptoms to watch out for. Pt was instructed to follow up with their PCP and discussed with the patient their option to return to the ED at anytime for persistent or worsening symptoms. The appropriate anticipatory guidance and out-patient management, including indications for return to the emergency department, were explained at length to the patient and understood. Impression Primary Impression: Pain of left upper extremity Additional Impression: Hyperkalemia Scribe Attestation The scribe's documentation has been prepared under my direction and personally reviewed by me in its entirety. I confirm that the note above accurately reflects all work, treatment, procedures, and medical decision making performed by me. Departure Information Dispostion Home / Self-Care Referrals Adolph Aldridge M.D. (PCP) Forms HOME CARE DOCUMENTATION FORM, IMPORTANT VISIT INFORMATION Patient Instructions ED Strain Muscle Ext, My [facility] Additional Instructions Please follow up with your primary care doctor with in the next 24 hours. Any worsening of your symptoms, please return to the ED immediately. This includes fevers greater than 100.4, redness around the skin, worsening pain, dialysis not working, or any other concerning signs or symptoms from your standpoint. Please go to directly dialysis as this has been set up for you. Problem Qualifiers
[2017-01-25] MEDS ORDERED: CRG625 PO (11:09)
[2017-02-06] MEDS ORDERED: LISI40TA PO (07:33)
[2017-02-12] MEDS ORDERED: AMOX875T PO (12:45)
[2017-02-14] MEDS ORDERED: DOXY100C76 PO (15:33)
[2017-02-21] MEDS ORDERED: OXYC-57 PO (15:28)
[2017-02-28] MEDS ORDERED: AMLO-114 PO (08:43)
[2017-03-06] MEDS ORDERED: CARV3.122 PO (10:28)
[2017-03-08] MEDS ORDERED: ZFRODT4HP PO (15:53)
[2017-03-20] MEDS ORDERED: DOXY100T PO (14:35)
[2017-03-20] MEDS ORDERED: TOBR0.3S4 OPL (14:35)
[2017-04-24] MEDS ORDERED: CMD/25 PO (12:00)
[2017-04-26] MEDS ORDERED: CMD3 PO (16:37)
[2017-04-26] MEDS ORDERED: LISI20TA3 PO (16:37)
[2017-05-15] MEDS ORDERED: VNTHFA/IN INH (12:28)
[2017-05-15] MEDS ORDERED: LISI-725 PO (13:43)
[2017-05-15] MEDS ORDERED: CALC500C3 PO (13:50)
[2017-05-15] MEDS ORDERED: CRG125 PO (15:17)
[2017-05-15] MEDS ORDERED: NRV/5 PO (15:17)
[2017-05-15] MEDS ORDERED: BENZ100C7 PO (15:22)
[2017-05-15] MEDS ORDERED: FLUT0.15 NAE (15:33)
[2017-05-15] MEDS ORDERED: CALC0.5C PO (18:14)
[2017-05-15] MEDS ORDERED: MIRT30TA3 PO (19:24)
[2017-05-15] MEDS ORDERED: TRAZ50TA35 PO (19:56)
[2017-05-15] MEDS ORDERED: CALC667C4 PO ×2 (19:56→21:12)
[2017-05-15] MEDS ORDERED: LXP/20 PO (21:08)
[2017-05-15] MEDS ORDERED: FAMO40TA6 PO (23:12)
[2017-05-17] MEDS ORDERED: CRG25 PO (14:53)
[2017-05-21] MEDS ORDERED: APR25 PO (00:24)
[2017-05-21] MEDS ORDERED: APR50 PO (15:28)
[2017-05-21] MEDS ORDERED: ATV1 PO (15:28)
[2017-05-21] MEDS ORDERED: ativan PO (16:06)
[2017-06-11] MEDS ORDERED: VORT1TAB PO (07:51)
[2017-06-11] MEDS ORDERED: LORA-741 PO (07:51)
== END 2017-01-07 12:34 | disposition home or self-care (01) ==
LOC: C.EDB 09:41 → C.EDC 12:34
DX: M79.602 Pain in left arm (principal); E87.5 Hyperkalemia; N18.5 Chronic kidney disease, stage 5; E11.9 Type 2 diabetes mellitus without complications; I12.0 Hypertensive chronic kidney disease with stage 5 chronic kidney disease or end stage renal disease; G43.909 Migraine, unspecified, not intractable, without status migrainosus; Z99.2 Dependence on renal dialysis; N26.9 Renal sclerosis, unspecified; Z83.79 Family history of other diseases of the digestive system; Z83.3 Family history of diabetes mellitus; Z82.49 Family history of ischemic heart disease and other diseases of the circulatory system; F17.210 Nicotine dependence, cigarettes, uncomplicated; Z79.899 Other long term (current) drug therapy

== ENCOUNTER 2017-01-19 11:51 | Emergency (ER) | payer OTHER ==
[~2017-01-19] VITALS: Ht 167.6 cm; Wt 89.4 kg
[2017-01-19 11:53] VITALS: TEMP 36.7; Ht 167.6 cm; Wt 89.4 kg
[2017-01-19] MEDS ORDERED: MoRPHine SULFATE 4 MG/ML 1 ML CARP\\VIAL IV STA ×2 (12:35→15:11)
[2017-01-19 12:54] LABS: BASO % 0.2 %; BASO ABS # 0.01 K/uL (0-0.2); COMPLETE YES; EOS % 3.3 %; HEMATOCRIT 35.9 % (37-47); IG% 0.2 %; LYMPH % 23.6 %; LYMPH ABS # 1.07 K/uL (1.2-3.4); MONO % 8.1 %; NEUT % 64.6 %; PLATELET COUNT 158 K/uL (130-400); RED BLOOD COUNT 3.59 M/uL (4.2-5.4); WHITE BLOOD COUNT 4.54 K/uL (4.8-10.8)
[2017-01-19 13:01] LABS: PROTHROMBIN TIME (PATIENT) 10.3 SECONDS (9.0-12.0)
[2017-01-19 13:09] LABS: CALCIUM 9.2 mg/dl (8.5-10.1)
[2017-01-19 13:38] LABS: BUN/CREATININE RATIO 6.7 (10-20); CREATININE 6.9 mg/dl (0.60-1.20); POTASSIUM 4.8 mmol/L (3.5-5.1)
--- NOTE | 2017-01-19 14:56 | DIAGNOSTIC IMAGING REPORT ---
ULTRASOUND LEFT UPPER EXTREMITY VENOUS; ULTRASOUND LEFT UPPER EXTREMITY HEMODIALYSIS ACCESS CLINICAL HISTORY: Left arm pain and swelling. COMPARISON STUDY: Venous ultrasound of the left upper extremity dated 01/07/2017. Hemodialysis access ultrasounds dated 01/07/2017 and 12/02/2016. TECHNIQUE: Real-time, grayscale, and color Doppler sonography of the deep veins of the left upper extremity is performed. Compression and augmentation were utilized. Doppler assessment was also performed of the left upper extremity AV dialysis fistula. FINDINGS: There is no sonographic evidence of deep venous thrombosis identified in the left upper extremity. The left internal jugular, axillary, and brachial veins are patent and normally compressible. Normal venous waveforms and augmentation are seen within the left subclavian vein. The cephalic and basilic veins are clear. The visualized radial and ulnar veins are patent. A left cephalic vein to brachial artery fistula is again seen. The fistula is patent. Velocities within the proximal (venous) and the fistula measure up to 194 cm/s. Elevated velocities are again seen within the midportion of the fistula end measure up to 816 cm/s. Velocities within the distal arterial and the fistula measure up to 481 cm/s. Trace linear echogenic material is again seen within the fistula which likely represents trace thrombus. IMPRESSION: 1. There is no sonographic evidence of deep venous thrombosis identified in the left upper extremity. 2. A left upper extremity cephalic vein to brachial artery fistula is patent. 3. Elevated velocities within the midportion and arterial and of the fistula are again noted and suggests stenosis. This is similar to prior studies. Electronically signed by: North Quintero M.D. 01/19/2017 2:55 PM Dictated Date/Time: 01/19/2017 2:49 PM
--- NOTE | 2017-01-19 16:01 | EMERGENCY ROOM VISIT NOTE ---
History Report prepared by Katia: Roberto Dunbar Under the Supervision of: Dr. Taylor Rodarte D.O. First contact with patient: 12:22 Chief Complaint: ARM PAIN Stated Complaint: LEFT ARM PAIN History of Present Illness The patient is a 31 year old female who presents to the Emergency Room with complaints of worsening left, upper arm pain beginning yesterday. She currently rates her discomfort a 10/10 in severity. The patient states that she currently has a fistula in her arm and is receiving dialysis on Mondays, Wednesdays, and Fridays through it. She notes that she has had the fistula since August, and it has not caused her discomfort. The patient states that she received her normal dialysis treatment yesterday. She reports that last night she could not sleep or get comfortable. The patient denies fever, chills, bumping her arm, and nausea. She reports that her pain worsens when she lifts her arm. The patient notes that she has had a history of a skin infection in the same arm about a month ago where she had an ultrasound performed. She reports that she was given pain medication and was discharged on Bactrim. She notes that these medications resolved her symptoms. The patient states that her current symptoms are similar to her past symptoms. She reports that she came to the ER because her is on vascular surgeon is on vacation and did not want to risk getting another infection. Source of History: patient Onset: yesterday Position: arm (left, upper) Symptom Intensity: 10/10 Timing: constant Modifying Factors (Worsening): movement Associated Symptoms: No chills, No fevers, No nausea Review of Systems See HPI for pertinent positives & negatives. A total of 10 systems reviewed and were otherwise negative. Past Medical & Surgical Medical Problems: (1) CKD (chronic kidney disease) stage V requiring chronic dialysis (2) DM2 (diabetes mellitus, type 2) (3) Focal segmental glomerulosclerosis (4) HTN (hypertension) (5) Hyperkalemia (6) Migraine (7) Renal failure (8) Syncope Surgical Problems: (1) H/O knee surgery (2) H/O tubal ligation (3) H/O: (4) Kidney transplant status, living related donor Social History Problems: (1) Kidney transplanted Family History Crohn's disease FATHER Diabetes mellitus MOTHER Hypertension SISTER Social History Smoking Status: Current Every Day Smoker Alcohol Use: none Drug Use: none Marital Status: in relationship Housing Status: lives with family, lives with significant other Occupation Status: disabled Current/Historical Medications Scheduled Calcium Acetate (Phoslo 667 Mg), 2,668 MG PO WITH MEALS Calcium Acetate (Phoslo 667 Mg), 1,334 MG PO WITH SNACKS Calcium Carbonate (Tums), 3 TABS PO HS Carvedilol (Coreg), 3.125 MG PO BID Escitalopram Oxalate (Escitalopram Oxalate), 20 MG PO QAM Famotidine (Pepcid), 1 TAB PO DAILY Lisinopril (Lisinopril), 40 MG PO HS Mirtazapine (Remeron), 30 MG PO HS Sulfa/Trimethoprim (Bactrim Ds 800MG/160MG), 1 TAB PO BID Trazodone Hcl (Trazodone), 50 MG PO HS Scheduled PRN Albuterol Hfa (Ventolin Hfa), 2 PUFFS INH QID PRN for Allergy Symptoms Hydrocodone/Acetaminophen 5MG/325MG ([place] 5MG/325MG), 1-2 TABS PO Q6H PRN for Pain Allergies Coded Allergies: Cefaclor (Verified Allergy, Unknown, Rash, 01/19/17) Reported by PT. Physical Exam Vital Signs Date Time Temp Pulse Resp B/P Pulse Ox O2 Delivery O2 Flow Rate FiO2 01/19/17 17:00 84 20 138/88 100 01/19/17 16:41 88 16 149/113 100 Room Air 01/19/17 14:55 84 20 135/80 97 Room Air 01/19/17 12:56 90 18 158/96 97 Room Air 01/19/17 11:53 36.7 98 18 157/91 100 Room Air Physical Exam GENERAL: alert, well appearing, well nourished, no distress, non-toxic EYE EXAM: normal conjunctiva, PERRL and EOM's grossly intact OROPHARYNX: no exudate, no erythema, lips, buccal mucosa, and tongue normal and mucous membranes are moist NECK: supple, no nuchal rigidity, no adenopathy, non-tender LUNGS: Clear to auscultation. Normal chest wall mechanics HEART: no murmurs, S1 normal and S2 normal ABDOMEN: abdomen soft, non-tender, normo-active bowel sounds, no masses, no rebound or guarding. BACK: Back is symmetrical on inspection and there is no deformity, no midline tenderness, no CVA tenderness. SKIN: no rashes and no bruising UPPER EXTREMITIES: upper extremities are grossly normal. Fistula in the left upper arm, positive bruit/thrill. No sores, erythema, or edema. Normal distal pulses. LOWER EXTREMITIES: No pitting edema. NEURO EXAM: Normal sensorium, cranial nerves II-XII [grossly] intact, normal speech, no [gross] weakness of arms, no [gross] weakness of legs. [No drift. Finger to nose intact. Gross sensation intact.] Medical Decision & Procedures ER Provider Diagnostic Interpretation: Radiology results have been interpreted by the radiologist and reviewed by me. ULTRASOUND LEFT UPPER EXTREMITY VENOUS; ULTRASOUND LEFT UPPER EXTREMITY HEMODIALYSIS ACCESS CLINICAL HISTORY: Left arm pain and swelling. COMPARISON STUDY: Venous ultrasound of the left upper extremity dated 01/07/2017. Hemodialysis access ultrasounds dated 01/07/2017 and 12/02/2016. TECHNIQUE: Real-time, grayscale, and color Doppler sonography of the deep veins of the left upper extremity is performed. Compression and augmentation were utilized. Doppler assessment was also performed of the left upper extremity AV dialysis fistula. FINDINGS: There is no sonographic evidence of deep venous thrombosis identified in the left upper extremity. The left internal jugular, axillary, and brachial veins are patent and normally compressible. Normal venous waveforms and augmentation are seen within the left subclavian vein. The cephalic and basilic veins are clear. The visualized radial and ulnar veins are patent. A left cephalic vein to brachial artery fistula is again seen. The fistula is patent. Velocities within the proximal (venous) and the fistula measure up to 194 cm/s. Elevated velocities are again seen within the midportion of the fistula end measure up to 816 cm/s. Velocities within the distal arterial and the fistula measure up to 481 cm/s. Trace linear echogenic material is again seen within the fistula which likely represents trace thrombus. IMPRESSION: 1. There is no sonographic evidence of deep venous thrombosis identified in the left upper extremity. 2. A left upper extremity cephalic vein to brachial artery fistula is patent. 3. Elevated velocities within the midportion and arterial and of the fistula are again noted and suggests stenosis. This is similar to prior studies. Electronically signed by: North Quintero M.D. 01/19/2017 2:55 PM Dictated Date/Time: 01/19/2017 2:49 PM Laboratory Results 01/19/17 12:40 Red Blood Count 3.59, Mean Corpuscular Volume 100.0, Mean Corpuscular Hemoglobin 32.0, Mean Corpuscular Hemoglobin Concent 32.0, Mean Platelet Volume 10.0, Neutrophils (%) (Auto) 64.6, Lymphocytes (%) (Auto) 23.6, Monocytes (%) ( Auto) 8.1, Eosinophils (%) (Auto) 3.3, Basophils (%) (Auto) 0.2, Neutrophils # ( Auto) 2.93, Lymphocytes # (Auto) 1.07, Monocytes # (Auto) 0.37, Eosinophils # ( Auto) 0.15, Basophils # (Auto) 0.01 01/19/17 12:40 Test 01/19/17 12:40 White Blood Count 4.54 K/uL (4.8-10.8) Red Blood Count 3.59 M/uL (4.2-5.4) Hemoglobin 11.5 g/dL (12.0-16.0) Hematocrit 35.9 % (37-47) Mean Corpuscular Volume 100.0 fL (80-100) Mean Corpuscular Hemoglobin 32.0 pg (25-34) Mean Corpuscular Hemoglobin Concent 32.0 g/dl (32-36) Platelet Count 158 K/uL (130-400) Mean Platelet Volume 10.0 fL (7.4-10.4) Neutrophils (%) (Auto) 64.6 % Lymphocytes (%) (Auto) 23.6 % Monocytes (%) (Auto) 8.1 % Eosinophils (%) (Auto) 3.3 % Basophils (%) (Auto) 0.2 % Neutrophils # (Auto) 2.93 K/uL (1.4-6.5) Lymphocytes # (Auto) 1.07 K/uL (1.2-3.4) Monocytes # (Auto) 0.37 K/uL (0.11-0.59) Eosinophils # (Auto) 0.15 K/uL (0-0.5) Basophils # (Auto) 0.01 K/uL (0-0.2) RDW Standard Deviation 60.3 fL (36.4-46.3) RDW Coefficient of Variation 16.3 % (11.5-14.5) Immature Granulocyte % (Auto) 0.2 % Immature Granulocyte # (Auto) 0.01 K/uL (0.00-0.02) Prothrombin Time 10.3 SECONDS (9.0-12.0) Prothromb Time International Ratio 1.0 (0.9-1.1) Anion Gap 10.0 mmol/L (3-11) Est Creatinine Clear Calc Drug Dose 13.3 ml/min Estimated GFR () 8.4 Estimated GFR (Non- 7.3 BUN/Creatinine Ratio 6.7 (10-20) Calcium Level 9.2 mg/dl (8.5-10.1) Laboratory results per my review. Medications Administered Medications (Trade) Dose Ordered Sig/Sachin Route Start Time Stop Time Status Last Admin Dose Admin Morphine Sulfate (MoRPHine SULFATE INJ) 4 mg NOW STAT IV 01/19/17 12:35 01/19/17 12:39 DC 01/19/17 12:52 4 MG Morphine Sulfate (MoRPHine SULFATE INJ) 4 mg NOW STAT IV 01/19/17 15:11 01/19/17 15:13 DC 01/19/17 15:59 4 MG Acetaminophen/ Hydrocodone Bitart ([place] 5/325 Tab) 1 tab NOW STAT PO 01/19/17 16:13 01/19/17 16:14 DC 01/19/17 16:40 1 TAB Trimethoprim/ Sulfamethoxazole (Septra Ds 800/ 160MG Tab) 1 tab NOW STAT PO 01/19/17 16:24 01/19/17 16:26 DC 01/19/17 16:39 1 TAB ED Course 1222: The patient was evaluated in room A09B. A complete history and physical exam was performed. 1235: Ordered Morphine Sulfate 4mg IV 1506: I reevaluated the patient, and she is still having discomfort. Paged Dr. Claudio, Vascular Surgeon 1511: Ordered Morphine Sulfate 4mg IV 1613: Ordered [place] 5/325 Tab 1 tab PO 1623: I reevaluated the patient. She now has slight, early erythema on the distal edge of the fistula. After several attempts, no return call from her vascular surgeon and no covering physician. She states that pain medication is working. [facility] I discussed the treatment plan with her. Discussed follow-up with her housing specialist as a precaution and keep her HD appt Saturday. She verbalized complete understanding. She will be discharged once she receives her medication. 1624: Ordered Septra Ds 800/160mg Tab 1 tab PO Medical Decision Infection, DVT, malfunctioning fistula No evidence of dvt, malfunctioning fistula. Pt well appearing. Very mild erythema noted at distal edge of fistula. No fevers or leukocytosis. Doubt abscess/bacteremia/sepsis. No problems with fistula at last dialysis. Pt states presentation today similar with one month ago and requesting bactrim. Unable to contact her vascular surgeon who placed the fistula. Pt understands risks of antibiotic, discussed f/u, sx to watch/return for, she verbalized understanding and was agreeable with plan. Impression Primary Impression: Arm pain, left Additional Impressions: Cellulitis CKD (chronic kidney disease) stage V requiring chronic dialysis Scribe Attestation The scribe's documentation has been prepared under my direction and personally reviewed by me in its entirety. I confirm that the note above accurately reflects all work, treatment, procedures, and medical decision making performed by me. Departure Information Dispostion Home / Self-Care Prescriptions Hydrocodone/Acetaminophen 5MG/325MG ([place] 5MG/325MG) Tab 1-2 TABS PO Q6H Y for Pain, #10 TAB Prov: Taylor Rodarte, DO 01/19/17 Sulfa/Trimethoprim (Bactrim Ds 800MG/160MG) Tab 1 TAB PO BID, #14 TAB Prov: Taylor Rodarte, DO 01/19/17 Referrals Adolph Aldridge M.D. (PCP) Patient Instructions My [facility] Additional Instructions Please continue your regular medications and take the antibiotics. Please go to dialysis Saturday as scheduled. If you have any worsening pain, swelling, redness, develop fevers/chills, vomiting, dizziness, or you have any other new or concerning symptoms, please return to the emergency room. Problem Qualifiers Additional Impressions: Cellulitis Site of cellulitis: extremity Site of cellulitis of extremity: upper extremity Laterality: left Qualified Codes: L03.114 - Cellulitis of left upper limb
[2017-01-19] MEDS ORDERED: HYDROCODONE/ACETAMOPHEN 5/325MG TAB PO STA (16:13)
[2017-01-19] MEDS ORDERED: SULFAMETHOXAZOLE/TRIMETHOPRIM DS 800/160MG TAB PO STA (16:24)
[2017-01-19] MEDS ORDERED: SULF800T23 PO (16:32)
[2017-01-19] MEDS ORDERED: HYDR-5688 PO (16:32)
[2017-01-19 17:00] VITALS: BP 138/88; PULSE 84; O2SAT 100
[2017-01-25] MEDS ORDERED: CRG625 PO (11:09)
[2017-02-06] MEDS ORDERED: LISI40TA PO (07:33)
[2017-02-12] MEDS ORDERED: AMOX875T PO (12:45)
[2017-02-14] MEDS ORDERED: DOXY100C76 PO (15:33)
[2017-02-21] MEDS ORDERED: OXYC-57 PO (15:28)
[2017-02-28] MEDS ORDERED: AMLO-114 PO (08:43)
[2017-03-06] MEDS ORDERED: CARV3.122 PO (10:28)
[2017-03-08] MEDS ORDERED: ZFRODT4HP PO (15:53)
[2017-03-20] MEDS ORDERED: DOXY100T PO (14:35)
[2017-03-20] MEDS ORDERED: TOBR0.3S4 OPL (14:35)
[2017-04-24] MEDS ORDERED: CMD/25 PO (12:00)
[2017-04-26] MEDS ORDERED: CMD3 PO (16:37)
[2017-04-26] MEDS ORDERED: LISI20TA3 PO (16:37)
[2017-05-15] MEDS ORDERED: VNTHFA/IN INH (12:28)
[2017-05-15] MEDS ORDERED: LISI-725 PO (13:43)
[2017-05-15] MEDS ORDERED: CALC500C3 PO (13:50)
[2017-05-15] MEDS ORDERED: NRV/5 PO (15:17)
[2017-05-15] MEDS ORDERED: CRG125 PO (15:17)
[2017-05-15] MEDS ORDERED: BENZ100C7 PO (15:22)
[2017-05-15] MEDS ORDERED: FLUT0.15 NAE (15:33)
[2017-05-15] MEDS ORDERED: CALC0.5C PO (18:14)
[2017-05-15] MEDS ORDERED: MIRT30TA3 PO (19:24)
[2017-05-15] MEDS ORDERED: TRAZ50TA35 PO (19:56)
[2017-05-15] MEDS ORDERED: CALC667C4 PO ×2 (19:56→21:12)
[2017-05-15] MEDS ORDERED: LXP/20 PO (21:08)
[2017-05-15] MEDS ORDERED: FAMO40TA6 PO (23:12)
[2017-05-17] MEDS ORDERED: CRG25 PO (14:53)
[2017-05-21] MEDS ORDERED: APR25 PO (00:24)
[2017-05-21] MEDS ORDERED: APR50 PO (15:28)
[2017-05-21] MEDS ORDERED: ATV1 PO (15:28)
[2017-05-21] MEDS ORDERED: ativan PO (16:06)
[2017-06-11] MEDS ORDERED: VORT1TAB PO (07:51)
[2017-06-11] MEDS ORDERED: LORA-741 PO (07:51)
== END 2017-01-19 17:00 | disposition home or self-care (01) ==
LOC: C.EDB 11:53 → C.EDA 17:00
DX: M79.622 Pain in left upper arm (principal); L03.114 Cellulitis of left upper limb; N18.4 Chronic kidney disease, stage 4 (severe); Z99.2 Dependence on renal dialysis; E11.9 Type 2 diabetes mellitus without complications; I10 Essential (primary) hypertension; E87.5 Hyperkalemia; R55 Syncope and collapse; Z82.49 Family history of ischemic heart disease and other diseases of the circulatory system; Z83.3 Family history of diabetes mellitus; F17.200 Nicotine dependence, unspecified, uncomplicated

== ENCOUNTER 2017-01-22 22:25 | Inpatient (IN) | payer OTHER ==
[~2017-01-22] VITALS: Ht 167.6 cm; Wt 88.0 kg
[~2017-01-22 22:25] MED LIST changes: +HYDR-5688 PO; +SULF800T23 PO
--- NOTE | 2017-01-22 22:56 | EMERGENCY ROOM VISIT NOTE ---
History Report prepared by Katia: Roberto Dunbar Under the Supervision of: Dr. Augie Krishnan D.O. First contact with patient: 22:42 Chief Complaint: CHEST PAIN Stated Complaint: CHEST PAIN Nursing Triage Summary: pt reports mid chest pain that radiates into right chest since 1400 with vomiting. pt is on dialysis. hx right kidney transplant. missed dialysis on saturday and is due tomorrow. History of Present Illness The patient is a 31 year old female who presents to the Emergency Room with complaints of constant, central chest pain beginning this afternoon. She currently rates her discomfort a 10/10 in severity. The patient states that her chest pain starts in the center and radiates to the right side. She notes that she has also been vomiting, but denies being short of breath and having a cough. The patient reports that she has had similar symptoms before where she was diagnosed with a fluid overload. She states that she is currently on an antibiotic for an infection in her left arm. The patient reports that she receives dialysis every Saturday, Saturday, and Saturday though her left, upper arm. She notes that she overslept yesterday and missed her dialysis appointment. Source of History: patient Onset: afternoon Position: chest (central) Symptom Intensity: 10/10 Timing: constant Associated Symptoms: + vomiting, No SOB, No cough Review of Systems See HPI for pertinent positives and negatives. A total of ten systems were reviewed and were otherwise negative. Past Medical & Surgical Medical Problems: (1) CKD (chronic kidney disease) stage V requiring chronic dialysis (2) DM2 (diabetes mellitus, type 2) (3) Focal segmental glomerulosclerosis (4) HTN (hypertension) (5) Hyperkalemia (6) Migraine (7) Renal failure (8) Syncope Surgical Problems: (1) H/O knee surgery (2) H/O tubal ligation (3) H/O: (4) Kidney transplant status, living related donor Social History Problems: (1) Kidney transplanted Family History Crohn's disease FATHER Diabetes mellitus MOTHER Hypertension SISTER Social History Smoking Status: Current Every Day Smoker Alcohol Use: none Drug Use: none Marital Status: in relationship Housing Status: lives with family, lives with significant other Occupation Status: disabled Current/Historical Medications Scheduled Calcium Acetate (Phoslo 667 Mg), 2,668 MG PO WITH MEALS Calcium Acetate (Phoslo 667 Mg), 1,334 MG PO WITH SNACKS Calcium Carbonate (Tums), 3 TABS PO HS Carvedilol (Coreg), 3.125 MG PO BID Escitalopram Oxalate (Escitalopram Oxalate), 20 MG PO QAM Famotidine (Pepcid), 40 MG PO DAILY Lisinopril (Lisinopril), 40 MG PO HS Mirtazapine (Remeron), 30 MG PO HS Sulfa/Trimethoprim (Bactrim Ds 800MG/160MG), 1 TAB PO BID Trazodone Hcl (Trazodone), 50 MG PO HS Scheduled PRN Albuterol Hfa (Ventolin Hfa), 2 PUFFS INH QID PRN for Allergy Symptoms Hydrocodone/Acetaminophen 5MG/325MG ([place] 5MG/325MG), 1-2 TABLETS PO Q6 PRN for Pain Allergies Coded Allergies: Cefaclor (Verified Allergy, Unknown, Rash, 01/22/17) Reported by PT. Physical Exam Vital Signs Date Time Temp Pulse Resp B/P Pulse Ox O2 Delivery O2 Flow Rate FiO2 01/23/17 00:00 82 16 159/91 97 Room Air 01/22/17 23:08 89 16 169/114 98 Room Air 01/22/17 22:33 94 01/22/17 22:32 97 Room Air 01/22/17 22:27 94 16 161/101 98 Room Air 01/22/17 22:27 98 Room Air Physical Exam GENERAL: Awake, alert, well-appearing, in no distress HENT: Normocephalic, atraumatic. Oropharynx unremarkable. EYES: Normal conjunctiva. Sclera non-icteric. NECK: Supple. No nuchal rigidity. FROM. No JVD. RESPIRATORY: Clear to auscultation. CARDIAC: Regular rate, normal rhythm. Extremities warm and well perfused. Pulses equal. ABDOMEN: Soft, non-distended. No tenderness to palpation. No rebound or guarding. No masses. RECTAL: Deferred. MUSCULOSKELETAL: Chest examination reveals no tenderness. The back is symmetrical on inspection without obvious abnormality. There is no CVA tenderness to palpation. No joint edema. UPPER EXTREMITIES: Left upper arm: dialysis graft - no issues LOWER EXTREMITIES: Calves are equal size bilaterally and non-tender. No edema. No discoloration. NEURO: Normal sensorium. No sensory or motor deficits noted. SKIN: No rash or jaundice noted. Medical Decision & Procedures ER Provider Diagnostic Interpretation: X-ray: Per my interpretation, radiologist review. My interpretation: Negative for infiltrate, negative for pneumothorax. normal heart size. Radiologist interpretation: Laboratory Results 01/22/17 22:55 Red Blood Count 3.25, Mean Corpuscular Volume 94.8, Mean Corpuscular Hemoglobin 29.8, Mean Corpuscular Hemoglobin Concent 31.5, Mean Platelet Volume 8.9, Neutrophils (%) (Auto) 73.5, Lymphocytes (%) (Auto) 18.6, Monocytes (%) (Auto) 5.0, Eosinophils (%) (Auto) 2.5, Basophils (%) (Auto) 0.2, Neutrophils # (Auto) 3.25, Lymphocytes # (Auto) 0.82, Monocytes # (Auto) 0.22, Eosinophils # (Auto) 0.11, Basophils # (Auto) 0.01 01/22/17 22:55 Test 01/22/17 22:55 01/22/17 23:01 01/23/17 00:22 White Blood Count 4.42 K/uL (4.8-10.8) Red Blood Count 3.25 M/uL (4.2-5.4) Hemoglobin 9.7 g/dL (12.0-16.0) Hematocrit 30.8 % (37-47) Mean Corpuscular Volume 94.8 fL (80-100) Mean Corpuscular Hemoglobin 29.8 pg (25-34) Mean Corpuscular Hemoglobin Concent 31.5 g/dl (32-36) Platelet Count 145 K/uL (130-400) Mean Platelet Volume 8.9 fL (7.4-10.4) Neutrophils (%) (Auto) 73.5 % Lymphocytes (%) (Auto) 18.6 % Monocytes (%) (Auto) 5.0 % Eosinophils (%) (Auto) 2.5 % Basophils (%) (Auto) 0.2 % Neutrophils # (Auto) 3.25 K/uL (1.4-6.5) Lymphocytes # (Auto) 0.82 K/uL (1.2-3.4) Monocytes # (Auto) 0.22 K/uL (0.11-0.59) Eosinophils # (Auto) 0.11 K/uL (0-0.5) Basophils # (Auto) 0.01 K/uL (0-0.2) RDW Standard Deviation 55.4 fL (36.4-46.3) RDW Coefficient of Variation 15.8 % (11.5-14.5) Immature Granulocyte % (Auto) 0.2 % Immature Granulocyte # (Auto) 0.01 K/uL (0.00-0.02) Tear Drop Cells 1+ Ovalocytes 1+ Anion Gap 17.0 mmol/L (3-11) Est Creatinine Clear Calc Drug Dose 6.6 ml/min Estimated GFR () 3.6 Estimated GFR (Non- 3.1 BUN/Creatinine Ratio 6.8 (10-20) Calcium Level 7.4 mg/dl (8.5-10.1) Total Bilirubin 0.3 mg/dl (0.2-1) Direct Bilirubin < 0.1 mg/dl (0-0.2) Aspartate Amino Transf (AST/SGOT) 14 U/L (15-37) Alanine Aminotransferase (ALT/SGPT) 18 U/L (12-78) Alkaline Phosphatase 72 U/L (45-117) Total Protein 7.3 gm/dl (6.4-8.2) Albumin 3.2 gm/dl (3.4-5.0) Bedside Troponin I 0.050 ng/ml (0-0.045) Laboratory results reviewed by me Medications Administered Medications (Trade) Dose Ordered Sig/Sachin Route Start Time Stop Time Status Last Admin Dose Admin Morphine Sulfate (MoRPHine SULFATE INJ) 4 mg NOW STAT IV 01/22/17 22:57 01/22/17 22:58 DC 01/22/17 23:08 4 MG Ondansetron HCl (Zofran Inj) 4 mg NOW STAT IV 01/22/17 22:57 01/22/17 22:58 DC 01/22/17 23:07 4 MG Acetaminophen/ Hydrocodone Bitart ([place] 5/325 Tab) 1 tab NOW STAT PO 01/22/17 23:45 01/22/17 23:46 DC 01/22/17 23:55 1 TAB ECG Indication: chest pain Rate (beats per minute): 95 Rhythm: normal sinus Findings: no acute ischemic change, other (Poor R-wave progression in the precordium) ED Course 3: The patient was evaluated in room B04B. A complete history and physical exam was performed. 2257: Ordered Zofran Inj 4mg IV, Morphine Sulfate 4mg IV 2345: Ordered Acetaminophen/Hydrocodone Bitart 1 tab PO 0014: Upon reexamination, the patient was Rigo Peacock [place] [facility]ist. I discussed the test results and treatment plan with her. The patient will be evaluated for further management. Medical Decision Differential diagnosis: Etiologies such as cardiac ischemia, aortic dissection, pulmonary embolism, pneumonia, pneumothorax, musculoskeletal, infections, pericarditis, myocarditis , esophageal rupture, gastrointestinal, as well as others were entertained. Patient resting in no distress. Patient has a history of end-stage renal disease as a slightly elevated potassium as well as creatinine with a troponin of 0.05. Patient has been admitted in the past for similar cardiac evaluation due to chest pain. I've discussed the evaluation with the hospitalist for admission. Patient has no signs of hyperkalemia on her EKG or ischemia. Patient was given IV morphine as well as [place]. Patient will be admitted for further evaluation regarding her chest pain and renal insufficiency Consults Time Called: 3 Consulting Physician: Rigo Peacock Returned Call: 13 I discussed the test results and treatment plan with Rigo Peacock. The patient will be evaluated for further management. Impression Primary Impression: Acute chest pain Additional Impression: Acute hyperkalemia Scribe Attestation The scribe's documentation has been prepared under my direction and personally reviewed by me in its entirety. I confirm that the note above accurately reflects all work, treatment, procedures, and medical decision making performed by me. Departure Information Dispostion Being Evaluated By Hospitalist Referrals Adolph Aldridge M.D. (PCP) Patient Instructions My [facility] Problem Qualifiers
[2017-01-22] MEDS ORDERED: ONDANSETRON INJ 2 MG/ML 2 ML VIAL IV STA (22:57)
[2017-01-22] MEDS ORDERED: MoRPHine SULFATE 4 MG/ML 1 ML CARP\\VIAL IV STA (22:57)
[2017-01-22] MEDS ORDERED: SULF800T23 PO (23:13)
[2017-01-22] MEDS ORDERED: HYDR-5688 PO (23:16)
[2017-01-22] MEDS ORDERED: HYDROCODONE/ACETAMOPHEN 5/325MG TAB PO STA (23:45)
[2017-01-22 23:59] LABS: ALKALINE PHOSPHATASE 72 U/L (45-117); ALT/SGPT 18 U/L (12-78); AST/SGOT 14 U/L (15-37); BLOOD UREA NITROGEN 95 mg/dl (7-18); BUN/CREATININE RATIO 6.8 (10-20); CALCIUM 7.4 mg/dl (8.5-10.1); CARBON DIOXIDE 21 mmol/L (21-32); CHLORIDE 98 mmol/L (98-107); GLUCOSE 92 mg/dl (70-99); POTASSIUM 6.4 mmol/L (3.5-5.1); SODIUM 135 mmol/L (136-145)
[2017-01-23] VITALS (28 sets, daily range): BP systolic 106–195; BP diastolic 67–121; PULSE 70–83; TEMP 36.5–37.2; O2SAT 95–100; Ht 167.6 cm; Wt 88.0 kg
[2017-01-23 00:01] LABS: HEMATOCRIT 30.8 % (37-47); MEAN CELL VOLUME 94.8 fL (80-100); MEAN CORPUSCULAR HEMOGLOBIN 29.8 pg (25-34); MEAN CORPUSCULAR HGB CONC 31.5 g/dl (32-36); MEAN PLATELET VOLUME 8.9 fL (7.4-10.4); PLATELET COUNT 145 K/uL (130-400); RED BLOOD COUNT 3.25 M/uL (4.2-5.4); WHITE BLOOD COUNT 4.42 K/uL (4.8-10.8)
[2017-01-23 00:02] LABS: BASO % 0.2 %; BASO ABS # 0.01 K/uL (0-0.2); COMPLETE YES; EOS % 2.5 %; IG% 0.2 %; LYMPH % 18.6 %; LYMPH ABS # 0.82 K/uL (1.2-3.4); NEUT % 73.5 %; OVALOCYTES 1+; TEAR DROP CELLS 1+
[2017-01-23] MEDS ORDERED: NovoLIN-R INSULIN PER UNIT CHARGE SC STA (00:22)
[2017-01-23] MEDS ORDERED: SODIUM BICARB 8.4% INJ 50 MEQ/50 ML SYR IV STA ×2 (00:22→04:37)
[2017-01-23] MEDS ORDERED: CALCIUM GLUCONATE 10% 1,000 MG in SODIUM CHLORIDE 0.9% 50ML 50 ML IV STA (00:44)
[2017-01-23] MEDS ORDERED: DEXTROSE 50% 50 ML SYR IV STA ×2 (01:01→02:53)
[2017-01-23] MEDS ORDERED: FUROSEMIDE INJ 100 MG in SYRINGE 0 ML IV STA (01:01)
[2017-01-23 01:04] LABS: MAGNESIUM 2.8 mg/dl (1.8-2.4)
[2017-01-23] MEDS ORDERED: INSULIN HUMAN REGULAR PER UNIT 10 UNITS in SYRINGE 9.9 ML IV STA (01:04)
[2017-01-23] MEDS ORDERED: ACETAMINOPHEN 325 MG TAB PO PRN (01:30)
[2017-01-23] MEDS ORDERED: GLUCOSE 40% GEL 15 GM TUBE PO PRN (01:30)
[2017-01-23] MEDS ORDERED: GLUCOSE 10 TABS/TUBE PO PRN (01:30)
[2017-01-23] MEDS ORDERED: PROMETHAZINE HCL INJ 12.5 MG in SODIUM CHLORIDE 0.9% 50ML 50 ML IV PRN (01:30)
[2017-01-23] MEDS ORDERED: GLUCAGON FOR INJ 1 MG VIAL SQ PRN (01:30)
[2017-01-23] MEDS ORDERED: HYDROmorphone INJ 1 MG/ML SYR IV PRN (01:30)
[2017-01-23] MEDS ORDERED: DEXTROSE 50% 50 ML SYR IV PRN (01:30)
[2017-01-23 01:46] LABS: PREG INTERNAL NEGATIVE QC NEG CLEAR BACKGROUND; PREG INTERNAL POSITIVE QC POS CONTROL LINE
[2017-01-23] MEDS ORDERED: HYDROmorphone INJ 0.5 MG/0.5 ML SYR ONE (01:50)
[2017-01-23] MEDS ORDERED: CARVEDILOL 3.125 MG TAB PO ONE (02:43)
[2017-01-23 03:39] LABS: PARTIAL THROMBOPLASTIN RATIO 0.9
[2017-01-23 04:01] LABS: BUN/CREATININE RATIO 6.8 (10-20); CALCIUM 7.7 mg/dl (8.5-10.1); POTASSIUM 5.5 mmol/L (3.5-5.1)
[2017-01-23] MEDS: HYDROCODONE/ACETAMOPHEN 5/325MG TAB PO PRN ×3 (04:31→23:21)
[2017-01-23 04:37] LABS: BASO % 0.2 %; BASO ABS # 0.01 K/uL (0-0.2); EOS % 2.7 %; HEMATOCRIT 28.1 % (37-47); IG% 0.2 %; LYMPH % 21.3 %; LYMPH ABS # 0.87 K/uL (1.2-3.4); MEAN CELL VOLUME 94.6 fL (80-100); MEAN CORPUSCULAR HEMOGLOBIN 31.6 pg (25-34); MEAN PLATELET VOLUME 9.2 fL (7.4-10.4); MONO % 8.8 %; NEUT % 66.8 %; PLATELET COUNT 126 K/uL (130-400); RED BLOOD COUNT 2.97 M/uL (4.2-5.4); WHITE BLOOD COUNT 4.09 K/uL (4.8-10.8)
[2017-01-23 04:38] LABS: COMPLETE YES; MEAN CORPUSCULAR HGB CONC 33.5 g/dl (32-36)
[2017-01-23] MEDS: HEPARIN SOD 5000 UNIT/0.5 ML CARP SQ SCH ×3 (05:16→21:25)
[2017-01-23] MEDS: HYDROmorphone INJ 1 MG/ML SYR IV PRN ×2 (05:17→19:12)
--- NOTE | 2017-01-23 05:39 | HISTORY & PHYSICAL EXAMINATION ---
DATE OF ADMISSION: 01/23/2017 PRIMARY CARE DOCTOR: Dr. Aldridge CHIEF COMPLAINT: Chest pain. HISTORY OF PRESENT ILLNESS: History obtained from patient and records. Medical history is significant for end-stage renal disease on HD, FSGS sp failed kidney transplant, hypertension, DM2 diet-controlled, chronic anemia (baseline hemoglobin 9-11), ongoing tobacco abuse, history of pericarditis sp colchicine treatment (10/2016). Recent confinement was about 3 weeks ago for syncope and hyperkalemia. Patient was in the ER a few days ago for left upper extremity pain, workup negative for blood clots. The patient was discharged on Bactrim for possible cellulitis. Patient missed dialysis about 2 days ago. Yesterday, the patient noted central chest pain going to the right, pleuritic, no shortness of breath. No fever, no chills, no unusual cough sx. emesis. No relief with nitro in the Emergency Room. MEDICAL HISTORY: As above. A 2D echo from December 2016 showed EF of 55%, LVH, PAP of 35 mmHg. No pericardial effusion. SURGERIES: Cholecystectomy, knee surgery, tubal ligation and kidney transplant. HOME MEDICATIONS: Include; Ventolin, Coreg, PhosLo, Tums, citalopram, Pepcid, [place], lisinopril, Remeron, Bactrim and trazodone. ALLERGIES: TO CEFACLOR. FAMILY HISTORY: IBD, diabetes and high blood pressure. PERSONAL AND SOCIAL HISTORY: Few cigarettes a day, Denies alcohol abuse. Prospective work at [employer] REVIEW OF SYSTEMS: As per HPI. All other ROS negative. PHYSICAL EXAMINATION: VITAL SIGNS: Blood pressure was noted to be 134/95, pulse rate 83, RR 20, temperature 36.5 and sats 99 on room air. GENERAL: Noted to be obese, wane, no respiratory distress. SKIN: Sallow HEENT: Pale palpebral conjuctivae. Dry mucosa. NECK: Short neck. LUNGS: Decreased breath sounds. No anterior chest wall tenderness. HEART: Regular rate and rhythm. ABDOMEN: Some distention. NT EXTREMITIES: min LE edema, no tenderness NEUROLOGIC: No gross focality. LABORATORIES: Hemoglobin was noted to be 9.7, hematocrit 30.8, white cell count 4.4 and platelets 145. Sodium noted to be 135, potassium 6.4, chloride 98, CO2 21, BUN 95, glucose was noted to be 92. Troponin was noted to be 0.05. Chest x-ray as per my interpretation; cardiomegaly, no overt congestion. EKG as per my interpretation : rate 95, normal sinus rhythm, negative ischemia, peaked T waves. ASSESSMENT: 1. Atypical chest pain. Differentials include : recurrent uremic pericarditis versus pulmonary embolism. 2. Hyperkalemia end-stage renal disease on hemodialysis, hx FSGS sp failed kidney transplant multifactorial : missed dialysis meds (Bactrim, ACEI) 3. HTN, BP stable 4. chronic anemia 2 to ESRD, hemoglobin baseline 5. LUE cellulitis sp Bactrim. improved on Bactrim as per px No sepsis 6. DM2, diet-controlled, well-controlled as of recent HgA1c (5.9 from July 2016) 7. ongoing tobacco abuse PLAN: PCU calcium gluconate given EKG abnormalities IV insulin, bicarbonate, Lasix for hyperkalemia hold ACEI, Bactrim for now substitute Doxycycline for Bactrim for LUE cellulitis Nephrology consult, dialysis management check ESR, D-dimer PE workup if D-dimer abnormal. 2D echo if PE workup unremarkable to rule out recurrent pericarditis. Further management pending workup results. ISS BG goal 140-180. Patient due for HgA1c recheck. Patient was counseled to stop smoking. DVT prophylaxis, Heparin subQ. Full code. MTDD
[2017-01-23 06:42] LABS: ESTIMATED AVERAGE GLUCOSE 97 mg/dl; HA1C FLAG Normal (Normal)
[2017-01-23] MEDS: INSULIN ASPART 100 UNITS/ML 3 ML PEN SC SCH ×4 (07:00→21:00)
[2017-01-23] MEDS ORDERED: CALCIUM ACETATE 667MG GELCAP PO PRN (07:30)
--- NOTE | 2017-01-23 08:18 | DIAGNOSTIC IMAGING REPORT ---
CHEST ONE VIEW PORTABLE HISTORY: Atypical CHEST PAIN COMPARISON: Chest 01/01/2017. FINDINGS: The lungs are clear. No pleural effusions. No pneumothorax. The heart remains mildly enlarged. No rib fractures. IMPRESSION: Stable mild cardiomegaly. Electronically signed by: Jose Jenkins M.D. 01/23/2017 8:16 AM Dictated Date/Time: 01/23/2017 8:15 AM
[2017-01-23] MEDS: CARVEDILOL 3.125 MG TAB PO SCH ×2 (08:21→21:29)
[2017-01-23] MEDS: ESCITALOPRAM OXALATE 20 MG TAB PO SCH (08:21)
[2017-01-23] MEDS: CALCIUM ACETATE 667MG GELCAP PO SCH ×3 (08:21→17:22)
[2017-01-23] MEDS: FAMOTIDINE 20 MG TAB PO SCH (08:22)
[2017-01-23] MEDS: DOXYCYCLINE HYCLATE 100 MG CAP PO SCH ×2 (08:22→21:28)
[2017-01-23] MEDS ORDERED: NURSING VERBAL MED ORDER ONE (10:00)
[2017-01-23] MEDS ORDERED: EPOETIN ALFA INJ 12,000 UNITS in SYRINGE 0 ML IV. SCH (11:00)
[2017-01-23 11:07] LABS: POTASSIUM 5.8 mmol/L (3.5-5.1)
--- NOTE | 2017-01-23 11:31 | DIAGNOSTIC IMAGING REPORT ---
BILATERAL LOWER EXTREMITY VENOUS DOPPLER CLINICAL HISTORY: Leg swelling. COMPARISON STUDY: Bilateral lower extremity venous Doppler November 18, 2016. TECHNIQUE: Sonography of the deep venous system of the bilateral lower extremities was performed. Compression and augmentation were evaluated. FINDINGS: The bilateral common femoral, superficial femoral and popliteal veins were compressible. Augmentation was normal. Flow was shown within the deep calf vessels. IMPRESSION: No evidence of deep venous thrombus within the bilateral lower extremities. Electronically signed by: Sebastian Mcclain M.D. 01/23/2017 11:30 AM Dictated Date/Time: 01/23/2017 11:29 AM
--- NOTE | 2017-01-23 12:14 | Nephrology Consultation ---
Nephrology Consultation Date of Consultation: January 23, 2017. Attending Physician: Dr Diaz Requesting Physician: Dr Blank Reason for Consultation: ESRD History of Present Illness 31 year old female w/ ESRD admitted for evaluation of N and chest pain in the setting of higher blood pressures and K 5.5. She also had some dyspnea earlier and dopplers BLE planned later this am. PMH is as below. She follows w/ Dr. Jo for dialysis at [facility]; she missed the 01/21 tx d/t oversleeping she states. Currently when I saw her at 11 am on rounds she denied chest pain, N, GARENTT, focal numbness/weakness, dyspnea. She had medical therapy for K early this am w/ 2 amps sodium bicarbonate, 100 mg iv lasix, 10 units iv insulin. Denies missing other dialysis txs in past 10 days. Past Medical/Surgical History -end-stage renal disease on hemodialysis MWF via AVF under care of Dr. Jo at [facility]; ESRD d/t FSGS status post failed kidney transplant due in part to adherence issues -hypertension -diabetes, diet controlled -anemia of chronic disease, baseline hemoglobin in 's -active tobacco abuse -recent suspected pericarditis late October for which she had one month course of colchicine -s/p nonemergent cholecystectomy late 2016 for chronic cholecystitis -anxiety/depression Family History Crohn's disease FATHER Diabetes mellitus MOTHER Hypertension SISTER Social History Smoking Status: Current Every Day Smoker Alcohol Use: none Drug Use: none Marital Status: in relationship Housing Status: lives with family, lives with significant other Occupation Status: disabled Allergies Coded Allergies: Cefaclor (Verified Allergy, Unknown, Rash, 01/22/17) Reported by PT. Medications Current Inpatient Medications Medications (Trade) Dose Ordered Sig/Sachin Route Start Time Stop Time Status Last Admin Dose Admin Heparin Sodium (Porcine) (Heparin Sq 5000 Unit/0.5ml) 5,000 unit Q8 SQ 01/23/17 06:00 02/22/17 05:59 01/23/17 05:16 5,000 UNIT Acetaminophen (Tylenol Tab) 650 mg Q4H PRN PO 01/23/17 01:30 02/22/17 01:29 Insulin Aspart (novoLOG ASPART) SLIDING SCALE If C... ACHS SC 01/23/17 07:00 02/22/17 06:59 Glucose (Glucose 40% Gel) 15-30 GRAMS 15 GRAMS... UD PRN PO 01/23/17 01:30 02/22/17 01:29 Glucose (Glucose Chew Tab) 4-8 Tablets 4 Tabl... UD PRN PO 01/23/17 01:30 02/22/17 01:29 01/23/17 02:38 4 TABS Dextrose (Dextrose 50% 50ML Syringe) 25-50ML OF 50% DW IV FOR... UD PRN IV 01/23/17 01:30 02/22/17 01:29 Glucagon 1 mg 1 mg UD PRN SQ 01/23/17 01:30 02/22/17 01:29 Promethazine HCl/ Sodium Chloride (Phenergan Inj/ Nss 50ml) 50.5 ml @ 204 mls/hr Q6H PRN IV 01/23/17 01:30 02/22/17 01:29 Calcium Acetate (Phoslo Cap) 1,334 mg TIDM PRN PO 01/23/17 07:30 02/22/17 07:29 Calcium Acetate (Phoslo Cap) 2,668 mg TIDM PO 01/23/17 07:30 02/22/17 07:29 01/23/17 08:21 2,668 MG Calcium Carbonate (Tums Chew Tab) 1,500 mg HS PO 01/23/17 21:00 02/22/17 20:59 Carvedilol (Coreg Tab) 3.125 mg BID PO 01/23/17 09:00 01/23/17 08:21 3.125 MG Escitalopram Oxalate (Lexapro Tab) 20 mg QAM PO 01/23/17 09:00 02/22/17 08:59 01/23/17 08:21 20 MG Famotidine (Pepcid Tab) 40 mg DAILY PO 01/23/17 09:00 02/22/17 08:59 01/23/17 08:22 40 MG Mirtazapine (Remeron Tab) 30 mg HS PO 01/23/17 21:00 02/22/17 20:59 Trazodone HCl (Desyrel Tab) 50 mg HS PO 01/23/17 21:00 02/22/17 20:59 Doxycycline Hyclate (Vibramycin Cap) 100 mg BID PO 01/23/17 09:00 02/02/17 08:59 01/23/17 08:22 100 MG Diphenhydramine HCl (Benadryl Cap) @ Q6H PRN PO 01/23/17 02:15 02/22/17 02:14 01/23/17 02:38 50 MG Acetaminophen/ Hydrocodone Bitart ([place] 5/325 Tab) 1 tab Q4 PRN PO 01/23/17 02:30 02/06/17 02:29 01/23/17 04:31 1 TAB Hydromorphone HCl 0.5 mg 0.5 mg Q6H PRN IV 01/23/17 02:30 02/06/17 02:29 01/23/17 05:17 0.5 MG Epoetin [place]/ Syringe (Procrit Inj/ Syringe) 0.6 ml @ 1 mls/min TODAY@1100 IV. 01/23/17 11:00 01/23/17 18:00 Home Meds and Scripts Medications Dose Route/Sig Max Daily Dose Days Date Category Dose Instructions [place] 5MG/325MG (Acetaminophen/Hydrocodone Bitart) Tab 1-2 Tablets PO Q6 PRN 01/22/17 Reported PRN PAIN Bactrim Ds 800MG/160MG (Trimethoprim/Sulfamethoxazole) Tab 1 Tab PO BID 01/22/17 Reported Pepcid (Famotidine) 40 Mg Tab 40 Mg PO DAILY 01/22/17 Reported Tums (Calcium Carbonate) 500 Mg Chew 3 Tabs PO HS 01/19/17 Reported Phoslo 667 Mg (Calcium Acetate) 667 Mg Cap 1,334 Mg PO WITH SNACKS 12/02/16 Reported Escitalopram Oxalate 20 Mg Tab 20 Mg PO QAM 12/02/16 Reported Coreg (Carvedilol) 3.125 Mg Tab 3.125 Mg PO BID 12/02/16 Reported Lisinopril 40 Mg Tab 40 Mg PO HS 12/02/16 Reported Trazodone (Trazodone HCl) 50 Mg Tab 50 Mg PO HS 11/18/16 Reported Phoslo 667 Mg (Calcium Acetate) 667 Mg Cap 2,668 Mg PO WITH MEALS 11/18/16 Reported Remeron (Mirtazapine) 30 Mg Tab 30 Mg PO HS 08/24/16 Reported Ventolin Hfa (Albuterol) 200 Puffs/19358 Mcg Aers 2 Puffs INH QID PRN 07/05/16 Reported Review of Systems Constitutional: No chills, No fever, No weakness Eyes: No worsening of vision ENT: No hearing loss Respiratory: + see HPI (no current dyspnea, pleuritic cp), No cough, No shortness of breath Cardiac: + see HPI, No chest pain (no current chest pain), No edema, No palpitations Abdomen: + see HPI (no current N), No diarrhea, No nausea, No pain, No vomiting Musculoskeletal: No joint pain, No muscle pain Female : + problem reported (voids spoonfuls daily; denies change in voiding habits) Neuro: No memory loss, No weakness Psych: No anxiety, No depression symptoms Heme: No abnormal bleeding/bruising Endo: + fatigue Skin: No itch, No new/changing skin lesions, No rash Physical Exam Date Time Temp Pulse Resp B/P Pulse Ox O2 Delivery O2 Flow Rate FiO2 01/23/17 08:00 Room Air 01/23/17 07:49 36.9 74 18 160/98 100 01/23/17 04:46 36.5 77 16 153/100 99 Room Air 01/23/17 04:00 Room Air 01/23/17 02:15 36.5 83 20 182/118 99 Room Air 01/23/17 01:54 81 21 01/23/17 01:49 89 20 97 01/23/17 01:44 80 11 96 01/23/17 01:40 145/85 01/23/17 01:39 80 11 96 01/23/17 01:34 82 15 98 01/23/17 01:31 134/95 01/23/17 01:29 80 16 100 01/23/17 01:16 82 16 159/102 97 Room Air 01/23/17 00:00 82 16 159/91 97 Room Air 01/22/17 23:08 89 16 169/114 98 Room Air 01/22/17 22:33 94 01/22/17 22:32 97 Room Air 01/22/17 22:27 94 16 161/101 98 Room Air 01/22/17 22:27 98 Room Air 24-Hour Column 01/23/17 08:00 Intake Total 100 ml Balance 100 ml General Appearance: WD/WN, no apparent distress (lying flat on RA, maenuvers readily for exam, lying in darkened room) Eyes: PERRL ENT: hearing grossly normal Neck: supple Respiratory/Chest: lungs clear, normal breath sounds, no respiratory distress Cardiovascular: regular rate, rhythm, no edema Abdomen: normal bowel sounds, non tender, soft Extremities: no pedal edema, + pertinent finding (L AVF + t/b) Neurologic/Psych: alert, normal mood/affect, oriented x 3 Skin: no jaundice, warm/dry, no rash, + pallor Diagnostics Last 24 Hours Test 01/22/17 22:55 01/22/17 23:01 01/23/17 01:54 01/23/17 02:22 White Blood Count 4.42 K/uL Red Blood Count 3.25 M/uL Hemoglobin 9.7 g/dL Hematocrit 30.8 % Mean Corpuscular Volume 94.8 fL Mean Corpuscular Hemoglobin 29.8 pg Mean Corpuscular Hemoglobin Concent 31.5 g/dl Platelet Count 145 K/uL Mean Platelet Volume 8.9 fL Neutrophils (%) (Auto) 73.5 % Lymphocytes (%) (Auto) 18.6 % Monocytes (%) (Auto) 5.0 % Eosinophils (%) (Auto) 2.5 % Basophils (%) (Auto) 0.2 % Neutrophils # (Auto) 3.25 K/uL Lymphocytes # (Auto) 0.82 K/uL Monocytes # (Auto) 0.22 K/uL Eosinophils # (Auto) 0.11 K/uL Basophils # (Auto) 0.01 K/uL RDW Standard Deviation 55.4 fL RDW Coefficient of Variation 15.8 % Immature Granulocyte % (Auto) 0.2 % Immature Granulocyte # (Auto) 0.01 K/uL Tear Drop Cells 1+ Ovalocytes 1+ Sodium Level 135 mmol/L Potassium Level 6.4 mmol/L Chloride Level 98 mmol/L Carbon Dioxide Level 21 mmol/L Anion Gap 17.0 mmol/L Blood Urea Nitrogen 95 mg/dl Creatinine 14.00 mg/dl Est Creatinine Clear Calc Drug Dose 6.6 ml/min Estimated GFR () 3.6 Estimated GFR (Non- 3.1 BUN/Creatinine Ratio 6.8 Random Glucose 92 mg/dl Calcium Level 7.4 mg/dl Magnesium Level 2.8 mg/dl Total Bilirubin 0.3 mg/dl Direct Bilirubin < 0.1 mg/dl Aspartate Amino Transf (AST/SGOT) 14 U/L Alanine Aminotransferase (ALT/SGPT) 18 U/L Alkaline Phosphatase 72 U/L Total Protein 7.3 gm/dl Albumin 3.2 gm/dl Lipase 135 U/L Human Chorionic Gonadotropin, Qual NEG Bedside Troponin I 0.050 ng/ml Bedside Glucose 127 mg/dl 64 mg/dl Test 01/23/17 02:30 01/23/17 02:46 01/23/17 03:10 01/23/17 04:25 Bedside Glucose 58 mg/dl 81 mg/dl Activated Partial Thromboplast Time 22.2 SECONDS Partial Thromboplastin Ratio 0.9 D-Dimer 1480 ug/L FEU Sodium Level 136 mmol/L Potassium Level 5.5 mmol/L Chloride Level 98 mmol/L Carbon Dioxide Level 23 mmol/L Anion Gap 15.0 mmol/L Blood Urea Nitrogen 95 mg/dl Creatinine 14.00 mg/dl Est Creatinine Clear Calc Drug Dose 6.6 ml/min Estimated GFR () 3.6 Estimated GFR (Non- 3.1 BUN/Creatinine Ratio 6.8 Random Glucose 104 mg/dl Calcium Level 7.7 mg/dl Troponin I 0.104 ng/ml White Blood Count 4.09 K/uL Red Blood Count 2.97 M/uL Hemoglobin 9.4 g/dL Hematocrit 28.1 % Mean Corpuscular Volume 94.6 fL Mean Corpuscular Hemoglobin 31.6 pg Mean Corpuscular Hemoglobin Concent 33.5 g/dl Platelet Count 126 K/uL Mean Platelet Volume 9.2 fL Neutrophils (%) (Auto) 66.8 % Lymphocytes (%) (Auto) 21.3 % Monocytes (%) (Auto) 8.8 % Eosinophils (%) (Auto) 2.7 % Basophils (%) (Auto) 0.2 % Neutrophils # (Auto) 2.73 K/uL Lymphocytes # (Auto) 0.87 K/uL Monocytes # (Auto) 0.36 K/uL Eosinophils # (Auto) 0.11 K/uL Basophils # (Auto) 0.01 K/uL RDW Standard Deviation 54.9 fL RDW Coefficient of Variation 15.7 % Immature Granulocyte % (Auto) 0.2 % Immature Granulocyte # (Auto) 0.01 K/uL Erythrocyte Sedimentation Rate 36 mm/hr Estimated Average Glucose 97 mg/dl Hemoglobin A1c 5.0 % Test 01/23/17 06:43 01/23/17 08:17 Bedside Glucose 85 mg/dl Potassium Level 5.8 mmol/L Troponin I 0.128 ng/ml Diagnostic Radiology: CXR clear; stable mild cardiomegaly Doppler BLE negative for dvt Assessment & Plan 31 y/o F w/ ESRD a/w HTN urgency, hyperkalemia, chest discomfort, N after missing dialysis. ESRD -for routine hd today w/ as aggressive uf as tolerated; 2K bath; mini heparin; next hd tentatively for 6/2 as inpt or outpt; could also consider another tx tomorrow however to optimize her status -- will eval for that in am Hyperkalemia -had medical tx; will also improve w/ HD -check bmp daily Anemia of chronic disease -epo w/ HD Appreciate consult; will follow with you.
--- NOTE | 2017-01-23 12:37 | DIAGNOSTIC IMAGING REPORT ---
NUCLEAR PULMONARY VENTILATION/PERFUSION SCAN CLINICAL HISTORY: Atypical chest pain. Hyperkalemia. COMPARISON STUDY: Chest x-ray dated 01/22/2017. TECHNIQUE: Initially, ventilation images of both lungs are obtained following the inhalation of 32 mCi of aerosolized technetium 99m DTPA. Subsequently, perfusion images of both lungs were obtained following the IV administration of 5.6 mCi of technetium 99m MAA. Ventilation and perfusion images were acquired in the anterior, posterior, and oblique projections. FINDINGS: A chest x-ray performed 01/22/2017 is normal. The ventilation of both lungs is normal and symmetric. No perfusion defects are identified on the perfusion imaging. IMPRESSION: Normal VQ scan. Electronically signed by: North Quintero M.D. 01/23/2017 12:36 PM Dictated Date/Time: 01/23/2017 12:35 PM
--- NOTE | 2017-01-23 16:17 | Progress Note ---
Internal Med Progress Note Date of Service: January 23, 2017. Provider Documentation: SUBJECTIVE: Patient still c/o chest pain, lower part, constant, dull aching, non radiating, worse with movement/walking, no relieving factors. Receiving dialysis at the time of my evaluation No nausea, vomiting, fever, chills, leg swelling OBJECTIVE: Vital Signs-as noted below Exam: GENERAL: Noted to be obese, AAOX3, no distress NECK: Short neck. LUNGS: Decreased breath sounds. No anterior chest wall tenderness. HEART: Regular rate and rhythm. EXTREMITIES: No edema, no erythema or tenderness NEUROLOGIC: No gross focality. Lab data as noted below. ASSESSMENT & PLAN: ASSESSMENT AND PLAN : CHEST PAIN, ATYPICAL Patient presented with atypical chest pain, lower , constant x 2 days, worse with walking and movement and with no relieving factors. Denies any associated SOB, cough, leg swelling. She did miss her dialysis last saturday as she over slept. D/D considered: PE with elevated d dimer , but VQ scan - normal, US duplex- negative, Pericarditis - uremic as prior hx of it but EKG not suggestive of pericarditis. Recent Echo 01/02/17 - no pericardial effusion. -Work up- Trop 0.104, 0.128, EKG on presentation- prolonged QTC, but no significant changes, EKG today- QTC lower, T wave inversion more pronounced in AVL, Lead I, T wave inversion in lead V5, V6. -Echo ordered, trend troponin HYPERKALEMIA Secondary to missing dialysis, came with elevated K of 5.5 -On dialysis- received it today -S/P IV Calcium gluconate, bicarb, lasix for hyperkalemia HX OF LUE CELLULITIS Improved -On bactrim - held and replaced with doxycycline ESRD ON HD -Missed dialysis on saturday. Received it today -Nephrology on board. Discussed case with Dr Esteban. -Hold bactrim, ACEI HTN-Stable CHRONIC ANEMIA SECONDARY TO ESRD -Hb stable with no overt bleeding DM2 -Diet controlled, well controlled as of recent recent HgA1c (5.9 from July 2016) TOBACCO ABUSE DISORDER Patient was counseled to stop smoking. DVT prophylaxis, Heparin subQ. FULL CODE DISPOSITION Continue with monitoring Vital Signs: Date Time Temp Pulse Resp B/P Pulse Ox O2 Delivery O2 Flow Rate FiO2 01/23/17 15:56 36.8 75 159/106 5/31/17 15:54 36.8 75 159/106 01/23/17 15:45 81 177/115 01/23/17 15:30 81 195/114 01/23/17 15:15 79 167/111 01/23/17 15:03 78 170/121 01/23/17 14:45 76 180/119 01/23/17 14:44 36.8 75 159/106 01/23/17 14:33 78 144/90 01/23/17 14:15 77 159/108 01/23/17 14:01 76 163/99 01/23/17 13:45 75 172/94 01/23/17 13:30 73 156/98 01/23/17 13:12 74 161/107 01/23/17 08:00 Room Air 01/23/17 07:49 36.9 74 18 160/98 100 01/23/17 04:46 36.5 77 16 153/100 99 Room Air 01/23/17 04:00 Room Air 01/23/17 02:15 36.5 83 20 182/118 99 Room Air 01/23/17 01:54 81 21 01/23/17 01:49 89 20 97 01/23/17 01:44 80 11 96 01/23/17 01:40 145/85 01/23/17 01:39 80 11 96 01/23/17 01:34 82 15 98 01/23/17 01:31 134/95 01/23/17 01:29 80 16 100 01/23/17 01:16 82 16 159/102 97 Room Air 01/23/17 00:00 82 16 159/91 97 Room Air 01/22/17 23:08 89 16 169/114 98 Room Air 01/22/17 22:33 94 01/22/17 22:32 97 Room Air 01/22/17 22:27 94 16 161/101 98 Room Air 01/22/17 22:27 98 Room Air Lab Results: Results Past 24 Hours Test 01/22/17 22:55 01/22/17 23:01 01/23/17 01:54 01/23/17 02:22 Range/Units White Blood Count 4.42 4.8-10.8 K/uL Red Blood Count 3.25 4.2-5.4 M/uL Hemoglobin 9.7 12.0-16.0 g/dL Hematocrit 30.8 37-47 % Mean Corpuscular Volume 94.8 80-100 fL Mean Corpuscular Hemoglobin 29.8 25-34 pg Mean Corpuscular Hemoglobin Concent 31.5 32-36 g/dl Platelet Count 145 130-400 K/uL Mean Platelet Volume 8.9 7.4-10.4 fL Neutrophils (%) (Auto) 73.5 % Lymphocytes (%) (Auto) 18.6 % Monocytes (%) (Auto) 5.0 % Eosinophils (%) (Auto) 2.5 % Basophils (%) (Auto) 0.2 % Neutrophils # (Auto) 3.25 1.4-6.5 K/uL Lymphocytes # (Auto) 0.82 1.2-3.4 K/uL Monocytes # (Auto) 0.22 0.11-0.59 K/uL Eosinophils # (Auto) 0.11 0-0.5 K/uL Basophils # (Auto) 0.01 0-0.2 K/uL RDW Standard Deviation 55.4 36.4-46.3 fL RDW Coefficient of Variation 15.8 11.5-14.5 % Immature Granulocyte % (Auto) 0.2 % Immature Granulocyte # (Auto) 0.01 0.00-0.02 K/uL Tear Drop Cells 1+ Ovalocytes 1+ Sodium Level 135 136-145 mmol/L Potassium Level 6.4 3.5-5.1 mmol/L Chloride Level 98 98-107 mmol/L Carbon Dioxide Level 21 21-32 mmol/L Anion Gap 17.0 3-11 mmol/L Blood Urea Nitrogen 95 7-18 mg/dl Creatinine 14.00 0.60-1.20 mg/dl Est Creatinine Clear Calc Drug Dose 6.6 ml/min Estimated GFR () 3.6 Estimated GFR (Non- 3.1 BUN/Creatinine Ratio 6.8 10-20 Random Glucose 92 70-99 mg/dl Calcium Level 7.4 8.5-10.1 mg/dl Magnesium Level 2.8 1.8-2.4 mg/dl Total Bilirubin 0.3 0.2-1 mg/dl Direct Bilirubin < 0.1 0-0.2 mg/dl Aspartate Amino Transf (AST/SGOT) 14 15-37 U/L Alanine Aminotransferase (ALT/SGPT) 18 12-78 U/L Alkaline Phosphatase 72 45-117 U/L Total Protein 7.3 6.4-8.2 gm/dl Albumin 3.2 3.4-5.0 gm/dl Lipase 135 73-393 U/L Human Chorionic Gonadotropin, Qual NEG NEG Bedside Troponin I 0.050 0-0.045 ng/ml Bedside Glucose 127 64 70-90 mg/dl Test 01/23/17 02:30 01/23/17 02:46 01/23/17 03:10 01/23/17 04:25 Range/Units Bedside Glucose 58 81 70-90 mg/dl Activated Partial Thromboplast Time 22.2 21.0-31.0 SECONDS Partial Thromboplastin Ratio 0.9 D-Dimer 1480 0-500 ug/L FEU Sodium Level 136 136-145 mmol/L Potassium Level 5.5 3.5-5.1 mmol/L Chloride Level 98 98-107 mmol/L Carbon Dioxide Level 23 21-32 mmol/L Anion Gap 15.0 3-11 mmol/L Blood Urea Nitrogen 95 7-18 mg/dl Creatinine 14.00 0.60-1.20 mg/dl Est Creatinine Clear Calc Drug Dose 6.6 ml/min Estimated GFR () 3.6 Estimated GFR (Non- 3.1 BUN/Creatinine Ratio 6.8 10-20 Random Glucose 104 70-99 mg/dl Calcium Level 7.7 8.5-10.1 mg/dl Troponin I 0.104 0-0.045 ng/ml White Blood Count 4.09 4.8-10.8 K/uL Red Blood Count 2.97 4.2-5.4 M/uL Hemoglobin 9.4 12.0-16.0 g/dL Hematocrit 28.1 37-47 % Mean Corpuscular Volume 94.6 80-100 fL Mean Corpuscular Hemoglobin 31.6 25-34 pg Mean Corpuscular Hemoglobin Concent 33.5 32-36 g/dl Platelet Count 126 130-400 K/uL Mean Platelet Volume 9.2 7.4-10.4 fL Neutrophils (%) (Auto) 66.8 % Lymphocytes (%) (Auto) 21.3 % Monocytes (%) (Auto) 8.8 % Eosinophils (%) (Auto) 2.7 % Basophils (%) (Auto) 0.2 % Neutrophils # (Auto) 2.73 1.4-6.5 K/uL Lymphocytes # (Auto) 0.87 1.2-3.4 K/uL Monocytes # (Auto) 0.36 0.11-0.59 K/uL Eosinophils # (Auto) 0.11 0-0.5 K/uL Basophils # (Auto) 0.01 0-0.2 K/uL RDW Standard Deviation 54.9 36.4-46.3 fL RDW Coefficient of Variation 15.7 11.5-14.5 % Immature Granulocyte % (Auto) 0.2 % Immature Granulocyte # (Auto) 0.01 0.00-0.02 K/uL Erythrocyte Sedimentation Rate 36 0-21 mm/hr Estimated Average Glucose 97 mg/dl Hemoglobin A1c 5.0 4.5-5.6 % Test 01/23/17 06:43 01/23/17 08:17 Range/Units Bedside Glucose 85 70-90 mg/dl Potassium Level 5.8 3.5-5.1 mmol/L Troponin I 0.128 0-0.045 ng/ml Microbiology Results 01/23/17 MRSA DNA Surveillance Screen - Final, Complete Specimen Negative for MRSA by DNA Probe
[2017-01-23] MEDS: MIRTAZAPINE TAB 15 MG TAB PO SCH (21:28)
[2017-01-23] MEDS: CALCIUM CARBONATE 500 MG CHEWABLE PO SCH (21:28)
[2017-01-23] MEDS: TRAZODONE HCL 50 MG TAB PO SCH (21:29)
[2017-01-24] VITALS (25 sets, daily range): BP systolic 127–197; BP diastolic 76–122; PULSE 73–89; TEMP 36.6–37.4; O2SAT 95–98
[2017-01-24] MEDS: HYDROmorphone INJ 1 MG/ML SYR IV PRN ×3 (01:26→18:20)
[2017-01-24] MEDS: HYDROCODONE/ACETAMOPHEN 5/325MG TAB PO PRN ×3 (05:14→21:36)
[2017-01-24] MEDS: HEPARIN SOD 5000 UNIT/0.5 ML CARP SQ SCH ×2 (05:19→20:36)
[2017-01-24] MEDS: INSULIN ASPART 100 UNITS/ML 3 ML PEN SC SCH ×4 (07:00→20:34)
[2017-01-24] MEDS: DOXYCYCLINE HYCLATE 100 MG CAP PO SCH ×2 (07:38→20:38)
[2017-01-24] MEDS: ASPIRIN 81 MG ECTAB PO SCH (07:39)
[2017-01-24] MEDS: CARVEDILOL 3.125 MG TAB PO SCH ×2 (07:40→20:38)
[2017-01-24] MEDS: FAMOTIDINE 20 MG TAB PO SCH (07:40)
[2017-01-24] MEDS: CALCIUM ACETATE 667MG GELCAP PO SCH ×3 (07:41→17:08)
[2017-01-24] MEDS: ESCITALOPRAM OXALATE 20 MG TAB PO SCH (07:41)
[2017-01-24 08:47] LABS: BASO % 0.3 %; BASO ABS # 0.01 K/uL (0-0.2); COMPLETE YES; EOS % 3.8 %; HEMATOCRIT 33.4 % (37-47); LYMPH % 25.6 %; MEAN CELL VOLUME 97.9 fL (80-100); MEAN CORPUSCULAR HEMOGLOBIN 32.3 pg (25-34); MEAN CORPUSCULAR HGB CONC 32.9 g/dl (32-36); MEAN PLATELET VOLUME 10.3 fL (7.4-10.4); MONO % 9.9 %; NEUT % 60.4 %; PLATELET COUNT 123 K/uL (130-400); RED BLOOD COUNT 3.41 M/uL (4.2-5.4); WHITE BLOOD COUNT 3.12 K/uL (4.8-10.8)
[2017-01-24 09:14] LABS: CALCIUM 8.5 mg/dl (8.5-10.1)
[2017-01-24 09:34] LABS: BUN/CREATININE RATIO 4.7 (10-20); POTASSIUM 5.1 mmol/L (3.5-5.1)
[2017-01-24] MEDS ORDERED: HEPARIN SOD (PORCINE) 1000 UNIT/ML 10 ML VIAL IV SCH ×2 (11:00)
[2017-01-24] MEDS ORDERED: KETOROLAC TROMETHAMINE 15 MG/ML VIAL ONE (11:02)
[2017-01-24] MEDS ORDERED: TRAMADOL HCL 50 MG TAB ONE (11:15)
[2017-01-24] MEDS ORDERED: NURSING VERBAL MED ORDER ONE (12:00)
[2017-01-24] MEDS ORDERED: ONDANSETRON INJ 2 MG/ML 2 ML VIAL ONE (12:02)
[2017-01-24] MEDS ORDERED: ONDANSETRON INJ 2 MG/ML 2 ML VIAL IV PRN (12:15)
--- NOTE | 2017-01-24 12:19 | Progress Note ---
Internal Med Progress Note Date of Service: Jan 24, 2017. Provider Documentation: SUBJECTIVE: Patient still c/o chest pain, lower part, constant, dull aching, non radiating, worse with movement/walking, no relieving factors. Asks for dilaudid and percocet both- taking it as scheduled instead of PRN. No nausea, vomiting, fever, chills, leg swelling OBJECTIVE: Vital Signs-as noted below Exam: GENERAL: Noted to be obese, AAOX3, no distress NECK: Short neck. LUNGS: Decreased breath sounds. No anterior chest wall tenderness. HEART: Regular rate and rhythm. EXTREMITIES: No edema, no erythema or tenderness NEUROLOGIC: No gross focality. Lab data as noted below. ASSESSMENT & PLAN: ASSESSMENT AND PLAN : CHEST PAIN, ATYPICAL Patient presented with atypical chest pain, lower , constant x 2 days, worse with walking and movement and with no relieving factors. Denies any associated SOB, cough, leg swelling. She did miss her dialysis last saturday as she over slept. D/D considered: PE with elevated d dimer , but VQ scan - normal, US duplex- negative, Pericarditis - uremic as prior hx of it but EKG not suggestive of pericarditis. Recent Echo 01/02/17 - no pericardial effusion. Will repeat Echocardiogram -Work up- Trop 0.104, 0.128, EKG on presentation- prolonged QTC, but no significant changes, EKG today- QTC lower, T wave inversion more pronounced in AVL, Lead I, T wave inversion in lead V5, V6. -Awaiting echo results, Troponin is trending down HYPERKALEMIA- Resolved Secondary to missing dialysis, came with elevated K of 5.5 -S/P Dialysis -S/P IV Calcium gluconate, bicarb, lasix for hyperkalemia HX OF LUE CELLULITIS Improved -On bactrim - held and replaced with doxycycline ESRD ON HD -Missed dialysis on saturday. -S/P Dialysis on 01/23/17 -Nephrology on board. Discussed case with Dr Esteban. -Hold bactrim, ACEI HTN - -Stable CHRONIC ANEMIA SECONDARY TO ESRD -Hb stable with no overt bleeding DM2 -Diet controlled, well controlled as of recent recent HgA1c (5.9 from July 2016) TOBACCO ABUSE DISORDER Patient was counseled to stop smoking. DVT prophylaxis, Heparin subQ. FULL CODE DISPOSITION Continue with tele monitoring Vital Signs: Date Time Temp Pulse Resp B/P (MAP) Pulse Ox O2 Delivery O2 Flow Rate FiO2 01/24/17 12:05 37.0 84 197/122 (147) 01/24/17 12:00 77 183/114 01/24/17 11:16 37.1 73 18 167/101 (123) 97 Room Air 01/24/17 08:00 37.2 74 18 168/98 (121) 98 Room Air 01/24/17 08:00 98 Room Air 01/24/17 04:00 Room Air 01/24/17 04:00 36.6 76 17 159/105 (123) 95 Room Air 01/24/17 00:00 Room Air 01/23/17 23:25 36.5 73 18 166/107 (126) 97 Room Air 01/23/17 20:00 Room Air 01/23/17 19:46 37.2 82 16 149/94 (112) 95 Room Air 01/23/17 17:50 97 Room Air 01/23/17 17:44 36.6 70 138/76 (96) 01/23/17 17:40 36.6 70 138/76 (96) 01/23/17 17:33 37.2 82 142/90 (107) 01/23/17 17:21 37.2 82 16 142/90 (107) 97 Room Air 01/23/17 16:45 81 136/72 01/23/17 16:30 81 106/67 01/23/17 16:15 81 162/98 01/23/17 16:00 76 176/109 01/23/17 15:56 36.8 75 159/106 (123) 01/23/17 15:54 36.8 75 159/106 (123) 01/23/17 15:45 81 177/115 01/23/17 15:30 81 195/114 01/23/17 15:15 79 167/111 01/23/17 15:03 78 170/121 01/23/17 14:45 76 180/119 01/23/17 14:44 36.8 75 159/106 (123) 01/23/17 14:33 78 144/90 01/23/17 14:15 77 159/108 01/23/17 14:01 76 163/99 01/23/17 13:45 75 172/94 01/23/17 13:30 73 156/98 01/23/17 13:12 74 161/107 Lab Results: Results Past 24 Hours Test 01/23/17 17:14 01/23/17 20:06 01/24/17 06:29 01/24/17 07:55 Range/Units Bedside Glucose 83 140 81 70-90 mg/dl White Blood Count 3.12 4.8-10.8 K/uL Red Blood Count 3.41 4.2-5.4 M/uL Hemoglobin 11.0 12.0-16.0 g/dL Hematocrit 33.4 37-47 % Mean Corpuscular Volume 97.9 80-100 fL Mean Corpuscular Hemoglobin 32.3 25-34 pg Mean Corpuscular Hemoglobin Concent 32.9 32-36 g/dl Platelet Count 123 130-400 K/uL Mean Platelet Volume 10.3 7.4-10.4 fL Neutrophils (%) (Auto) 60.4 % Lymphocytes (%) (Auto) 25.6 % Monocytes (%) (Auto) 9.9 % Eosinophils (%) (Auto) 3.8 % Basophils (%) (Auto) 0.3 % Neutrophils # (Auto) 1.88 1.4-6.5 K/uL Lymphocytes # (Auto) 0.80 1.2-3.4 K/uL Monocytes # (Auto) 0.31 0.11-0.59 K/uL Eosinophils # (Auto) 0.12 0-0.5 K/uL Basophils # (Auto) 0.01 0-0.2 K/uL RDW Standard Deviation 56.8 36.4-46.3 fL RDW Coefficient of Variation 15.8 11.5-14.5 % Immature Granulocyte % (Auto) 0.0 % Immature Granulocyte # (Auto) 0.00 0.00-0.02 K/uL Sodium Level 136 136-145 mmol/L Potassium Level 5.1 3.5-5.1 mmol/L Chloride Level 98 98-107 mmol/L Carbon Dioxide Level 27 21-32 mmol/L Anion Gap 11.0 3-11 mmol/L Blood Urea Nitrogen 43 7-18 mg/dl Creatinine 9.00 0.60-1.20 mg/dl Est Creatinine Clear Calc Drug Dose 10.3 ml/min Estimated GFR () 6.1 Estimated GFR (Non- 5.3 BUN/Creatinine Ratio 4.7 10-20 Random Glucose 89 70-99 mg/dl Calcium Level 8.5 8.5-10.1 mg/dl Troponin I 0.091 0-0.045 ng/ml Test 01/24/17 11:00 Range/Units Bedside Glucose 78 70-90 mg/dl
--- NOTE | 2017-01-24 14:16 | Dialysis Progress Note ---
Nephrology Dialysis Note Date of Service: Jan 24, 2017. Subjective had emesis on arrival to HD; no current chest pain; no abd pain prior to or after emesis Objective Date Time Temp Pulse Resp B/P (MAP) Pulse Ox O2 Delivery O2 Flow Rate FiO2 01/24/17 13:45 79 150/93 01/24/17 13:30 80 162/105 01/24/17 13:15 79 169/105 01/24/17 13:00 81 145/95 01/24/17 12:45 77 166/107 01/24/17 12:30 77 168/108 01/24/17 12:15 77 168/108 01/24/17 12:05 37.0 84 197/122 (147) 01/24/17 12:00 77 183/114 01/24/17 12:00 97 Room Air 01/24/17 11:16 37.1 73 18 167/101 (123) 97 Room Air 01/24/17 08:00 37.2 74 18 168/98 (121) 98 Room Air 01/24/17 08:00 98 Room Air 01/24/17 04:00 Room Air 01/24/17 04:00 36.6 76 17 159/105 (123) 95 Room Air 01/24/17 00:00 Room Air 01/23/17 23:25 36.5 73 18 166/107 (126) 97 Room Air 01/23/17 20:00 Room Air 01/23/17 19:46 37.2 82 16 149/94 (112) 95 Room Air 01/23/17 17:50 97 Room Air 01/23/17 17:44 36.6 70 138/76 (96) 01/23/17 17:40 36.6 70 138/76 (96) 01/23/17 17:33 37.2 82 142/90 (107) 01/23/17 17:21 37.2 82 16 142/90 (107) 97 Room Air 01/23/17 16:45 81 136/72 01/23/17 16:30 81 106/67 01/23/17 16:15 81 162/98 01/23/17 16:00 76 176/109 01/23/17 15:56 36.8 75 159/106 (123) 01/23/17 15:54 36.8 75 159/106 (123) 01/23/17 15:45 81 177/115 01/23/17 15:30 81 195/114 01/23/17 15:15 79 167/111 01/23/17 15:03 78 170/121 01/23/17 14:45 76 180/119 01/23/17 14:44 36.8 75 159/106 (123) 01/23/17 14:33 78 144/90 01/23/17 14:15 77 159/108 Physical Exam: General Appearance: WD/WN, no apparent distress (sitting up on hd on RA) Eyes: PERRL ENT: hearing grossly normal Neck: supple Respiratory/Chest: lungs clear, normal breath sounds, no respiratory distress Cardiovascular: regular rate, rhythm, no edema Abdomen: normal bowel sounds, non tender, soft Extremities: no pedal edema, + pertinent finding (L AVF + t/b) Neurologic/Psych: alert, normal mood/affect, oriented x 3 Skin: no jaundice, warm/dry, no rash, + pallor Current Inpatient Medications Medications (Trade) Dose Ordered Sig/Sachin Route Start Time Stop Time Status Last Admin Dose Admin Heparin Sodium (Porcine) (Heparin Sq 5000 Unit/0.5ml) 5,000 unit Q8 SQ 01/23/17 06:00 02/22/17 05:59 01/23/17 05:16 5,000 UNIT Acetaminophen (Tylenol Tab) 650 mg Q4H PRN PO 01/23/17 01:30 02/22/17 01:29 Insulin Aspart (novoLOG ASPART) SLIDING SCALE If C... ACHS SC 01/23/17 07:00 02/22/17 06:59 Glucose (Glucose 40% Gel) 15-30 GRAMS 15 GRAMS... UD PRN PO 01/23/17 01:30 02/22/17 01:29 Glucose (Glucose Chew Tab) 4-8 Tablets 4 Tabl... UD PRN PO 01/23/17 01:30 02/22/17 01:29 01/23/17 02:38 4 TABS Dextrose (Dextrose 50% 50ML Syringe) 25-50ML OF 50% DW IV FOR... UD PRN IV 01/23/17 01:30 02/22/17 01:29 Glucagon (Glucagon Inj) 1 mg UD PRN SQ 01/23/17 01:30 02/22/17 01:29 Promethazine HCl 12.5 mg/Sodium Chloride 50.5 ml @ 204 mls/hr Q6H PRN IV 01/23/17 01:30 02/22/17 01:29 Calcium Acetate (Phoslo Cap) 1,334 mg TIDM PRN PO 01/23/17 07:30 02/22/17 07:29 Calcium Acetate (Phoslo Cap) 2,668 mg TIDM PO 01/23/17 07:30 02/22/17 07:29 01/24/17 11:18 2,668 MG Calcium Carbonate (Tums Chew Tab) 1,500 mg HS PO 01/23/17 21:00 02/22/17 20:59 01/23/17 21:28 1,500 MG Carvedilol (Coreg Tab) 3.125 mg BID PO 01/23/17 09:00 01/24/17 07:40 3.125 MG Escitalopram Oxalate (Lexapro Tab) 20 mg QAM PO 01/23/17 09:00 02/22/17 08:59 01/24/17 07:41 20 MG Famotidine (Pepcid Tab) 40 mg DAILY PO 01/23/17 09:00 02/22/17 08:59 01/24/17 07:40 40 MG Mirtazapine (Remeron Tab) 30 mg HS PO 01/23/17 21:00 02/22/17 20:59 01/23/17 21:28 30 MG Trazodone HCl (Desyrel Tab) 50 mg HS PO 01/23/17 21:00 02/22/17 20:59 01/23/17 21:29 50 MG Doxycycline Hyclate (Vibramycin Cap) 100 mg BID PO 01/23/17 09:00 02/02/17 08:59 01/24/17 07:38 100 MG Diphenhydramine HCl (Benadryl Cap) @ Q6H PRN PO 01/23/17 02:15 02/22/17 02:14 01/23/17 23:20 50 MG Acetaminophen/ Hydrocodone Bitart ([place] 5/325 Tab) 1 tab Q4 PRN PO 01/23/17 02:30 02/06/17 02:29 01/24/17 09:14 1 TAB Aspirin (Ecotrin Tab) 81 mg QAM PO 01/24/17 09:00 02/23/17 08:59 01/24/17 07:39 81 MG Heparin Sodium (Porcine) (Heparin Iv Bolus) 1,000 unit TODAY@1100 IV 01/24/17 11:00 01/24/17 23:59 Heparin Sodium (Porcine) (Heparin Iv Bolus) 400 unit TODAY@1100,1200,1300 IV 01/24/17 11:00 01/24/17 23:59 Ondansetron HCl (Zofran Inj) 4 mg Q6H PRN IV 01/24/17 12:15 02/23/17 12:14 Hydromorphone HCl (Dilaudid Inj) 0.5 mg Q8H PRN IV 01/24/17 16:30 02/06/17 02:29 Tramadol HCl (Ultram Tab) 50 mg Q4H PRN PO 01/24/17 12:30 02/23/17 12:29 Last 24 Hours Test 01/23/17 17:14 01/23/17 20:06 01/24/17 06:29 01/24/17 07:55 Bedside Glucose 83 mg/dl 140 mg/dl 81 mg/dl White Blood Count 3.12 K/uL Red Blood Count 3.41 M/uL Hemoglobin 11.0 g/dL Hematocrit 33.4 % Mean Corpuscular Volume 97.9 fL Mean Corpuscular Hemoglobin 32.3 pg Mean Corpuscular Hemoglobin Concent 32.9 g/dl Platelet Count 123 K/uL Mean Platelet Volume 10.3 fL Neutrophils (%) (Auto) 60.4 % Lymphocytes (%) (Auto) 25.6 % Monocytes (%) (Auto) 9.9 % Eosinophils (%) (Auto) 3.8 % Basophils (%) (Auto) 0.3 % Neutrophils # (Auto) 1.88 K/uL Lymphocytes # (Auto) 0.80 K/uL Monocytes # (Auto) 0.31 K/uL Eosinophils # (Auto) 0.12 K/uL Basophils # (Auto) 0.01 K/uL RDW Standard Deviation 56.8 fL RDW Coefficient of Variation 15.8 % Immature Granulocyte % (Auto) 0.0 % Immature Granulocyte # (Auto) 0.00 K/uL Sodium Level 136 mmol/L Potassium Level 5.1 mmol/L Chloride Level 98 mmol/L Carbon Dioxide Level 27 mmol/L Anion Gap 11.0 mmol/L Blood Urea Nitrogen 43 mg/dl Creatinine 9.00 mg/dl Est Creatinine Clear Calc Drug Dose 10.3 ml/min Estimated GFR () 6.1 Estimated GFR (Non- 5.3 BUN/Creatinine Ratio 4.7 Random Glucose 89 mg/dl Calcium Level 8.5 mg/dl Troponin I 0.091 ng/ml Test 01/24/17 11:00 Bedside Glucose 78 mg/dl Assessment & Plan 31 y/o F w/ ESRD a/w HTN urgency, hyperkalemia, chest discomfort, N after missing one session of dialysis. Still w/ intermittent CP>primary service evaluating ESRD -for routine hd today w/ as aggressive uf as tolerated; 2K bath; mini heparin; next hd tentatively for 6/2 as inpt or outpt Hyperkalemia, resolved -check bmp daily Anemia of chronic disease -epo w/ HD not indicated today Appreciate consult; will follow with you. Care coordinated w/ Dr. Diaz
--- NOTE | 2017-01-24 16:25 | ECHOCARDIOGRAM REPORT ---
*NOTICE TO RECEIVING [employer]Y This information is strictly Confidential and protected under [place] law. [place] law prohibits you from making any further disclosure of this information unless further disclosure is expressly permitted by the written consent of the person to whom it pertains or is authorized by law. A general authorization for the release of medical or other information is not sufficient for this purpose. Hospital accepts no responsibility if the information is made available to any other person, INCLUDING THE PATIENT. Interpretation Summary * Conclusions -- * The left ventricle is moderately dilated. * There is borderline concentric left ventricular hypertrophy. * Left ventricular systolic function is mild to moderately reduced. * Ejection Fraction = 45-50%. * There is moderate to severe septal hypokinesis. * The right ventricle is normal in size and function. * The right ventricular systolic function is normal. Procedure Details * Left Ventricle The left ventricle is moderately dilated. There is borderline concentric left ventricular hypertrophy. Ejection Fraction = 45-50%. Left ventricular systolic function is mild to moderately reduced. There is moderate to severe septal hypokinesis. * Right Ventricle The right ventricle is normal in size and function. There is normal right ventricular wall thickness. The right ventricular systolic function is normal. * Atria The left atrial size is normal. Right atrial size is normal. The interatrial septum is intact with no evidence for an atrial septal defect. * Mitral Valve The mitral valve is normal in structure and function. There is no mitral valve stenosis. There is no mitral regurgitation noted. * Tricuspid Valve The tricuspid valve is normal in structure and function. There is trace tricuspid regurgitation. * Aortic Valve The aortic valve is normal in structure and function. No aortic regurgitation is present. * Pulmonic Valve The pulmonic valve is normal in structure and function. There is no pulmonic valvular regurgitation. * Great Vessels The aortic root is normal size. No obvious dissection could be visualized. The pulmonary artery is normal size. * Pericardium/Pleural There is no pericardial effusion. * * MMode 2D Measurements and Calculations * IVSd 1.1 cm * IVSs 1.4 cm * * LVIDd 5.8 cm * LVIDs 4.3 cm * LVPWd 1.0 cm * LVPWs 1.4 cm * * IVS/LVPW 1.0 * FS 25.1 % * EDV(Teich) 165.8 ml * ESV(Teich) 84.8 ml * EF(Teich) 48.9 % * * EDV(cubed) 194.0 ml * ESV(cubed) 81.6 ml * EF(cubed) 57.9 % * % IVS thick 26.2 % * % LVPW thick 33.9 % * * LV mass(C)d 250.9 grams * LV mass(C)dI 125.5 grams/m\S\2 * LV mass(C)s 229.8 grams * LV mass(C)sI 115.0 grams/m\S\2 * * CO(Teich) 6.1 l/min * CI(Teich) 3.0 l/min/m\S\2 * SV(Teich) 81.0 ml * SI(Teich) 40.5 ml/m\S\2 * CO(cubed) 8.4 l/min * CI(cubed) 4.2 l/min/m\S\2 * SV(cubed) 112.4 ml * SI(cubed) 56.2 ml/m\S\2 * * Ao root diam 3.1 cm * Ao root area 7.5 cm\S\2 * ACS 1.9 cm * LA dimension 3.8 cm * * asc Aorta Diam 2.9 cm * * LA/Ao 1.2 * LVOT diam 2.1 cm * LVOT area 3.5 cm\S\2 * * LVAd ap4 41.2 cm\S\2 * LVLd ap4 8.5 cm * EDV(MOD-sp4) 166.0 ml * LVAs ap4 26.1 cm\S\2 * LVLs ap4 6.8 cm * ESV(MOD-sp4) 83.1 ml * EF(MOD-sp4) 49.9 % * * LVAd ap2 42.8 cm\S\2 * LVLd ap2 9.3 cm * EDV(MOD-sp2) 168.0 ml * LVAs ap2 28.3 cm\S\2 * LVLs ap2 8.0 cm * ESV(MOD-sp2) 84.6 ml * EF(MOD-sp2) 49.6 % * * CO(MOD-sp4) 6.2 l/min * CI(MOD-sp4) 3.1 l/min/m\S\2 * SV(MOD-sp4) 82.9 ml * SI(MOD-sp4) 41.5 ml/m\S\2 * * CO(MOD-sp2) 6.3 l/min * CI(MOD-sp2) 3.1 l/min/m\S\2 * SV(MOD-sp2) 83.4 ml * SI(MOD-sp2) 41.7 ml/m\S\2 * * * * * * Doppler Measurements and Calculations * MV E max rosa 77.1 cm/sec * MV A max rosa 87.8 cm/sec * * MV E/A 0.88 * * MV P1/2t max rosa 99.1 cm/sec * MV P1/2t 75.3 msec * MVA(P1/2t) 2.9 cm\S\2 * MV dec slope 385.5 cm/sec\S\2 * MV dec time 0.30 sec * * Ao V2 max 115.5 cm/sec * Ao max PG 5.3 mmHg * Ao max PG (full) 2.2 mmHg * WILMER(V,A) 2.7 cm\S\2 * WILMER(V,D) 2.7 cm\S\2 * * LV V1 max PG 3.1 mmHg * * LV V1 max 88.3 cm/sec * * PA V2 max 78.1 cm/sec * PA max PG 2.5 mmHg * * PI max rosa 190.6 cm/sec * PI max PG 14.5 mmHg * PI dec slope 255.4 cm/sec\S\2 * PI P1/2t 218.7 msec * *
[2017-01-24] MEDS: TRAMADOL HCL 50 MG TAB PO PRN ×2 (17:10→23:52)
[2017-01-24] MEDS: CALCIUM CARBONATE 500 MG CHEWABLE PO SCH (20:37)
[2017-01-24] MEDS ORDERED: DOCUSATE SODIUM 100 MG CAP PO ONE (20:37)
[2017-01-24] MEDS: TRAZODONE HCL 50 MG TAB PO SCH (20:38)
[2017-01-24] MEDS: MIRTAZAPINE TAB 15 MG TAB PO SCH (20:38)
[2017-01-25] VITALS (20 sets, daily range): BP systolic 111–168; BP diastolic 56–132; PULSE 61–94; TEMP 36.6–36.8; O2SAT 96–98
[2017-01-25] MEDS: HEPARIN SOD 5000 UNIT/0.5 ML CARP SQ SCH ×2 (06:00→13:33)
[2017-01-25 06:01] LABS: MEAN CELL VOLUME 97.3 fL (80-100); MEAN CORPUSCULAR HGB CONC 31.9 g/dl (32-36); PLATELET COUNT 123 K/uL (130-400); RED BLOOD COUNT 3.29 M/uL (4.2-5.4); WHITE BLOOD COUNT 3.32 K/uL (4.8-10.8)
[2017-01-25 06:50] LABS: BUN/CREATININE RATIO 4.4 (10-20); CALCIUM 8.5 mg/dl (8.5-10.1); CREATININE 6.9 mg/dl (0.60-1.20); POTASSIUM 4.9 mmol/L (3.5-5.1)
[2017-01-25] MEDS: INSULIN ASPART 100 UNITS/ML 3 ML PEN SC SCH ×2 (07:00→11:00)
[2017-01-25] MEDS ORDERED: HEPARIN SOD (PORCINE) 1000 UNIT/ML 10 ML VIAL IV SCH ×2 (08:00)
[2017-01-25] MEDS ORDERED: EPOETIN ALFA 10,000 UNITS/ML VIAL IV. SCH (08:30)
[2017-01-25] MEDS ORDERED: DOCUSATE SODIUM 100 MG CAP PO SCH (09:00)
[2017-01-25] MEDS: CALCIUM ACETATE 667MG GELCAP PO SCH ×2 (09:01→11:30)
[2017-01-25] MEDS: ESCITALOPRAM OXALATE 20 MG TAB PO SCH (09:02)
[2017-01-25] MEDS: FAMOTIDINE 20 MG TAB PO SCH (09:02)
[2017-01-25] MEDS: CARVEDILOL 3.125 MG TAB PO SCH (09:02)
[2017-01-25] MEDS: DOXYCYCLINE HYCLATE 100 MG CAP PO SCH (09:03)
[2017-01-25] MEDS: ASPIRIN 81 MG ECTAB PO SCH (09:03)
[2017-01-25] MEDS: HYDROmorphone INJ 1 MG/ML SYR IV PRN ×2 (09:05→11:04)
[2017-01-25] MEDS: HYDROCODONE/ACETAMOPHEN 5/325MG TAB PO PRN ×2 (09:16→13:33)
--- NOTE | 2017-01-25 10:31 | Cardiology Consultation ---
Cardiology Consultation Date of Consultation: Jan 25, 2017 History of Present Illness Alexandra Arguello is a 31 year old female seen in cardiac consultation per the request of Dr. Renea Diaz for the evaluation of chest discomfort with recent intermittent EKG changes and new abnormalities on resting transthoracic echocardiogram. The patient is well known to the undersigned as I previously seen her in the fall of 2015 as well as in October 2016 for chest discomfort. She has a history of end-stage renal disease and is on hemodialysis every Saturday and Saturday via a left upper extremity AV fistula under the care of Dr. Jo at [facility]. Her end-stage renal disease is due to focal segmental glomerular sclerosis and had undergone a previous kidney transplant in January 2014 at [facility] with subsequent transplant failure in 2015 for which she went back on hemodialysis. Should precipitate seen by the undersigned for chest discomfort in the fall of 2015 and at that time and was felt that she was having chest wall pain due to recent placement of a left-sided tunneled dialysis catheter. She had recently had a dobutamine stress echocardiogram that it been negative for ischemia a few weeks before that. It also had a negative stress test in 2011. I had seen her again in October 2016 for pleuritic chest discomfort and on echocardiogram she had a trace to small circumferential pericardial effusion. At that point her tunnel dialysis catheter had recently been manipulated as it had just been removed, and it was again felt that perhaps there was a component of chest wall pain versus pericarditis. She underwent treatment with a month-long course of dialysis dose adjusted to colchicine which did not improve the discomfort. In the interim, she underwent a laparoscopic cholecystectomy in November 2016 which she tolerated well from a cardiac perspective. This admission she presented 4 days ago with waxing and waning chest discomfort. She describes it is worse with a deep breath, but she also states it is worse with exertion such as walking. Her blood pressure was elevated on presentation at 160/101, she was also found to have hyperkalemia with a resulting potassium level 6.4 millimoles per liter. She has had multiple EKG tracings this admission including one yesterday on 01/24/2017 that revealed progressive new poor R-wave progression suggestive of possible anterior IN and new lateral T-wave inversions in the lateral precordial leads as well as the high lateral leads. Serial cardiac enzymes revealed mildly elevated troponin levels of 0.104, 0.128, and 0.091 ng/ml this admission in the setting of renal dysfunction with a pre HD creatinine of 6.9 this am. Her Potassium was improved this am at 4.9. During my interview the patient she was actively undergoing hemodialysis. She noted that she still had chest discomfort but she is not in any acute distress. Repeat EKG this morning revealed continued dynamic lateral ST changes and poor R -wave progression. She underwent a repeat transthoracic echocardiogram yesterday 01/24/2017 which had revealed an interval new anteroseptal wall motion abnormality and decline in her ejection fraction to 45% having been noted to of had a normal ejection fraction and normal LV wall motion on recent echocardiogram performed 20 days prior. There is no evidence of pericardial effusion. History Past Medical History: 1. Focal segmental glomerular sclerosis with resultant ESRD 2. Type 2 diabetes mellitus 3. Hypertension 4. Migraines 5. Anxiety 6. Depression Past Surgical History: 1. Tunneled dialysis catheter , 2015 2. Kidney transplant January, , subsequent failure 3. History of prior knee surgery 4. History of section 5. History of tubal ligation 6. Laparoscopically secondary to chronic cholecystitis Social History: Nonsmoker No substance abuse On disability due to her multiple medical problems Family History: She notes history of ischemic heart disease in her grandmother, and congenital heart disease in her brother, details unknown Review Of Systems See above for pertinent positives & negatives. A total of 10 systems reviewed and were otherwise negative. Allergies Coded Allergies: Cefaclor (Verified Allergy, Unknown, Rash, 01/22/17) Reported by PT. Medications Reported Home Medications Medications Dose Route/Sig Max Daily Dose Days Date Category Dose Instructions [place] 5MG/325MG (Acetaminophen/Hydrocodone Bitart) Tab 1-2 Tablets PO Q6 PRN 01/22/17 Reported PRN PAIN Bactrim Ds 800MG/160MG (Trimethoprim/Sulfamethoxazole) Tab 1 Tab PO BID 01/22/17 Reported Pepcid (Famotidine) 40 Mg Tab 40 Mg PO DAILY 01/22/17 Reported Tums (Calcium Carbonate) 500 Mg Chew 3 Tabs PO HS 01/19/17 Reported Phoslo 667 Mg (Calcium Acetate) 667 Mg Cap 1,334 Mg PO WITH SNACKS 12/02/16 Reported Escitalopram Oxalate 20 Mg Tab 20 Mg PO QAM 12/02/16 Reported Coreg (Carvedilol) 3.125 Mg Tab 3.125 Mg PO BID 12/02/16 Reported Lisinopril 40 Mg Tab 40 Mg PO HS 12/02/16 Reported Trazodone (Trazodone HCl) 50 Mg Tab 50 Mg PO HS 11/18/16 Reported Phoslo 667 Mg (Calcium Acetate) 667 Mg Cap 2,668 Mg PO WITH MEALS 11/18/16 Reported Remeron (Mirtazapine) 30 Mg Tab 30 Mg PO HS 08/24/16 Reported Ventolin Hfa (Albuterol) 200 Puffs/14166 Mcg Aers 2 Puffs INH QID PRN 07/05/16 Reported Current Inpatient Medications Medications (Trade) Dose Ordered Sig/Sachin Route Start Time Stop Time Status Last Admin Dose Admin Heparin Sodium (Porcine) (Heparin Sq 5000 Unit/0.5ml) 5,000 unit Q8 SQ 01/23/17 06:00 02/22/17 05:59 01/23/17 05:16 5,000 UNIT Acetaminophen (Tylenol Tab) 650 mg Q4H PRN PO 01/23/17 01:30 02/22/17 01:29 Insulin Aspart (novoLOG ASPART) SLIDING SCALE If C... ACHS SC 01/23/17 07:00 02/22/17 06:59 Glucose (Glucose 40% Gel) 15-30 GRAMS 15 GRAMS... UD PRN PO 01/23/17 01:30 02/22/17 01:29 Glucose (Glucose Chew Tab) 4-8 Tablets 4 Tabl... UD PRN PO 01/23/17 01:30 02/22/17 01:29 01/23/17 02:38 4 TABS Dextrose (Dextrose 50% 50ML Syringe) 25-50ML OF 50% DW IV FOR... UD PRN IV 01/23/17 01:30 02/22/17 01:29 Glucagon (Glucagon Inj) 1 mg UD PRN SQ 01/23/17 01:30 02/22/17 01:29 Promethazine HCl 12.5 mg/Sodium Chloride 50.5 ml @ 204 mls/hr Q6H PRN IV 01/23/17 01:30 02/22/17 01:29 Calcium Acetate (Phoslo Cap) 1,334 mg TIDM PRN PO 01/23/17 07:30 02/22/17 07:29 Calcium Acetate (Phoslo Cap) 2,668 mg TIDM PO 01/23/17 07:30 02/22/17 07:29 01/25/17 09:01 2,668 MG Calcium Carbonate (Tums Chew Tab) 1,500 mg HS PO 01/23/17 21:00 02/22/17 20:59 01/24/17 20:37 1,500 MG Carvedilol (Coreg Tab) 3.125 mg BID PO 01/23/17 09:00 01/25/17 09:02 3.125 MG Escitalopram Oxalate (Lexapro Tab) 20 mg QAM PO 01/23/17 09:00 02/22/17 08:59 01/25/17 09:02 20 MG Famotidine (Pepcid Tab) 40 mg DAILY PO 01/23/17 09:00 02/22/17 08:59 01/25/17 09:02 40 MG Mirtazapine (Remeron Tab) 30 mg HS PO 01/23/17 21:00 02/22/17 20:59 01/24/17 20:38 30 MG Trazodone HCl (Desyrel Tab) 50 mg HS PO 01/23/17 21:00 02/22/17 20:59 01/24/17 20:38 50 MG Doxycycline Hyclate (Vibramycin Cap) 100 mg BID PO 01/23/17 09:00 02/02/17 08:59 01/25/17 09:03 100 MG Diphenhydramine HCl (Benadryl Cap) @ Q6H PRN PO 01/23/17 02:15 02/22/17 02:14 01/23/17 23:20 50 MG Acetaminophen/ Hydrocodone Bitart ([place] 5/325 Tab) 1 tab Q4 PRN PO 01/23/17 02:30 02/06/17 02:29 01/25/17 09:16 1 TAB Aspirin (Ecotrin Tab) 81 mg QAM PO 01/24/17 09:00 02/23/17 08:59 01/25/17 09:03 81 MG Ondansetron HCl (Zofran Inj) 4 mg Q6H PRN IV 01/24/17 12:15 02/23/17 12:14 Hydromorphone HCl (Dilaudid Inj) 0.5 mg Q8H PRN IV 01/24/17 16:30 02/06/17 02:29 01/25/17 09:05 0.5 MG Tramadol HCl (Ultram Tab) 50 mg Q4H PRN PO 01/24/17 12:30 02/23/17 12:29 01/24/17 23:52 50 MG Docusate Sodium (coLACE CAP) 100 mg DAILY PO 01/25/17 09:00 02/24/17 08:59 01/25/17 09:02 100 MG Epoetin Travis (Procrit Inj) 10,000 units TODAY@0830 IV. 01/25/17 08:30 01/25/17 23:59 Physical Exam Vital Signs (Last 8hrs): Last 8 Hrs Date Time Temp Pulse Resp B/P (MAP) Pulse Ox O2 Delivery O2 Flow Rate FiO2 01/25/17 09:56 81 155/99 01/25/17 09:32 87 168/112 01/25/17 07:16 36.6 74 16 154/98 (116) 98 01/25/17 04:04 36.7 76 17 152/91 (111) 96 Room Air 01/25/17 04:00 Room Air General Appearance: Alert and Oriented x3. NAD. Head: Normocephalic Atraumatic. Eyes: PERRLA, EOMI, conjunctiva and sclera clear Neck: Supple. No carotid bruits noted. No JVD. No HJD. Respiratory: Breath sounds clear to auscultation bilaterally. No w/r/r. Cardiovascular: Reg rate and rhythm. S1 and S2 noted. No murmurs, rubs, gallops. PMI non displace. Abdomen: Normal bowel sounds, soft nontender. no abdominal bruits. Extremities: No edema, no clubbing or cyanosis. distal pulses 2/4 bilaterally. Neuro: No focal deficits. Psychiatric: Normal affect. Data Last Resulted 01/25/17 05:17 Last Resulted 01/25/17 05:17 EKG and echocardiogram findings as noted above Assessment & Plan Impression: 31-year-old female 1. Chest discomfort, atypical in character for angina, but recurrent, refractory to treatment for pericarditis in October 2016, with new EKG changes suggestive of ischemia versus underlying LVH with suspected hypertensive heart disease, mild troponin I elevation. Patient is new anteroseptal wall motion abnormality, and noted decline in her ejection fraction of 45% as compared to 50 -55% several weeks ago. 2. This admission she has had a negative lower extremity venous duplex and a low probability ventilation perfusion scan 3. Uncontrolled hypertension, moderate concentric left ventricular hypertrophy 4. History of end-stage renal disease, due to FSGS, failed kidney transplant, patient is on chronic hemodialysis every Saturday and is currently undergoing hemodialysis as I dictate this on 01/25/17 she is due to be finished at 1330. Plan: Plan to increase her carvedilol to 6.25 mg twice a day for better blood pressure control. Her lisinopril has been on hold due to hyperkalemia noted this admission as well as a recent admission several weeks ago. Nature considerations include adding calcium channel pool such as amlodipine. Given new EKG and echocardiographic changes, recommend proceeding with high risk cardiac catheterization which I believe should be performed at a tertiary center. I discussed the case with Dr. Velasquez at [facility] who has accepted the patient in transfer. We are going to try to transfer the patient by [facility] today and hopefully get her there in time for the procedure today. Case was discussed with Dr Nieves of Nephrology and Dr Sana Diaz.
--- NOTE | 2017-01-25 11:08 | Progress Note ---
Internal Med Progress Note Date of Service: Jan 25, 2017. Provider Documentation: SUBJECTIVE: Patient still c/o chest pain, lower part, constant, dull aching, non radiating, worse with movement/walking, no relieving factors. Asks for IV dilaudid and percocet both- taking it as scheduled instead of PRN. No nausea, vomiting, fever, chills, leg swelling. Undergoing hemodialysis OBJECTIVE: Vital Signs-as noted below Exam: GENERAL: Noted to be obese, AAOX3, no distress NECK: Short neck. LUNGS: Decreased breath sounds. No anterior chest wall tenderness. HEART: Regular rate and rhythm. EXTREMITIES: No edema, no erythema or tenderness NEUROLOGIC: No gross focality. Lab data as noted below. 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 Denies any associated SOB, cough, leg swelling. She did miss her dialysis last Saturday as she over slept. Has had multiple episodes of chest pain in past, with negative stress test in 2015, last admission- questionable pericarditis. This time, she has similar chest pain, using IV Dilaudid/percocet scheduled. EKG on 01/24- poor r wave progression, T wave inversion in leads AVL, I, V5, V6, Repeat Echo- EF 45-50% (last one on 01/02-50-55%), moderate hypokinesis, new wall motion abnormality- anteroseptal. Need to rule out ischemia -Consulted cardiology- Plan is for cardiac cath given the changes in EKG, Echo at [facility] -D/D considered: PE with elevated d dimer , but VQ scan - normal, US duplex- negative, Pericarditis - uremic as prior hx of it but EKG not suggestive of pericarditis. Recent Echo 01/02/17 - no pericardial effusion. -Work up- Trop 0.104, 0.128 in setting of ESRD on HD S/P HYPERKALEMIA- Resolved Secondary to missing dialysis, came with elevated K of 5.5 -S/P Dialysis 01/23, 01/25 -S/P IV Calcium gluconate, bicarb, lasix for hyperkalemia HX OF LUE CELLULITIS - Resolved -On bactrim - held and replaced with doxycycline- complete course of 7 days ( Day 3) ESRD ON HD -Missed dialysis on saturday. -S/P Dialysis on 01/23/17, 01/25/17 -Nephrology on board. Discussed case with Dr Esteban. -Hold bactrim, ACEI HTN Uncontrolled -Held ACEI -Increased coreg to 6.25 mg PO BID by cardiology today CHRONIC ANEMIA SECONDARY TO ESRD -Hb stable with no overt bleeding DM2 -Diet controlled, well controlled as of recent recent HgA1c (5.9 from July 2016) TOBACCO ABUSE DISORDER Patient was counseled to stop smoking. DVT prophylaxis, Heparin subQ. FULL CODE DISPOSITION PLAN is cardiac cath today due to new EKG, Echo changes per cardiology Arrangements made by cardiology- accepting physician- Dr Farooq Velasquez. Transport via [facility]. Vital Signs: Date Time Temp Pulse Resp B/P (MAP) Pulse Ox O2 Delivery O2 Flow Rate FiO2 01/25/17 10:10 36.8 61 154/132 (139) 01/25/17 09:56 81 155/99 01/25/17 09:32 87 168/112 01/25/17 07:16 36.6 74 16 154/98 (116) 98 01/25/17 04:04 36.7 76 17 152/91 (111) 96 Room Air 01/25/17 04:00 Room Air 01/24/17 23:59 Room Air 01/24/17 23:18 36.9 80 18 150/89 (109) 97 Room Air 01/24/17 20:11 36.7 80 20 148/99 (115) 96 01/24/17 20:00 97 Room Air 01/24/17 16:29 37.4 83 18 137/89 (105) 95 Room Air 01/24/17 16:00 97 Room Air 01/24/17 15:32 36.8 80 144/91 (108) 01/24/17 15:15 80 137/80 01/24/17 15:00 89 145/86 01/24/17 14:45 80 129/78 01/24/17 14:35 81 131/81 01/24/17 14:30 89 127/76 01/24/17 14:15 80 142/91 01/24/17 14:00 81 132/81 01/24/17 13:45 79 150/93 01/24/17 13:30 80 162/105 01/24/17 13:15 79 169/105 01/24/17 13:00 81 145/95 01/24/17 12:45 77 166/107 01/24/17 12:30 77 168/108 01/24/17 12:15 77 168/108 01/24/17 12:05 37.0 84 197/122 (147) 01/24/17 12:00 77 183/114 01/24/17 12:00 97 Room Air 01/24/17 11:16 37.1 73 18 167/101 (123) 97 Room Air Lab Results: Results Past 24 Hours Test 01/24/17 11:00 01/24/17 15:59 01/24/17 20:31 01/25/17 05:17 Range/Units Bedside Glucose 78 115 96 70-90 mg/dl White Blood Count 3.32 4.8-10.8 K/uL Red Blood Count 3.29 4.2-5.4 M/uL Hemoglobin 10.2 12.0-16.0 g/dL Hematocrit 32.0 37-47 % Mean Corpuscular Volume 97.3 80-100 fL Mean Corpuscular Hemoglobin 31.0 25-34 pg Mean Corpuscular Hemoglobin Concent 31.9 32-36 g/dl RDW Standard Deviation 55.0 36.4-46.3 fL RDW Coefficient of Variation 15.5 11.5-14.5 % Platelet Count 123 130-400 K/uL Mean Platelet Volume 10.0 7.4-10.4 fL Sodium Level 138 136-145 mmol/L Potassium Level 4.9 3.5-5.1 mmol/L Chloride Level 100 98-107 mmol/L Carbon Dioxide Level 28 21-32 mmol/L Anion Gap 10.0 3-11 mmol/L Blood Urea Nitrogen 31 7-18 mg/dl Creatinine 6.90 0.60-1.20 mg/dl Est Creatinine Clear Calc Drug Dose 13.2 ml/min Estimated GFR () 8.4 Estimated GFR (Non- 7.3 BUN/Creatinine Ratio 4.4 10-20 Random Glucose 79 70-99 mg/dl Calcium Level 8.5 8.5-10.1 mg/dl Test 01/25/17 06:31 Range/Units Bedside Glucose 79 70-90 mg/dl
[2017-01-25] MEDS ORDERED: CRG625 PO (11:09)
--- NOTE | 2017-01-25 11:11 | Discharge Instructions ---
Discharge Instructions Date of Service Jan 25, 2017. Admission Reason for Admission: Hyperkalemia Discharge Discharge Diagnosis / Problem: 1. Chest pain, atypical 2. Hyperkalemia Discharge Goals Goal(s): Diagnostic testing, Therapeutic intervention Activity Recommendations Activity Limitations: per Instructions/Follow-up section . Current Hospital Diet Patient's current hospital diet: Renal Diet, AHA Diet (Heart Healthy), Diabetes Type 2 Diet Discharge Diet Recommended Diet: AHA Diet (Heart Healthy), Low Sodium Diet (2gm Na), Diabetes Type 2 Diet, Renal Diet Pending Studies Studies pending at discharge: no Laboratory Results Hemoglobin A1c Test 01/23/17 04:25 Range/Units Estimated Average Glucose 97 mg/dl Hemoglobin A1c 5.0 4.5-5.6 % Medical Emergencies . Who to Call and When: Medical Emergencies: If at any time you feel your situation is an emergency, please call 911 immediately. . Non-Emergent Contact Non-Emergency issues call your: Primary Care Provider . . "Provider Documentation" section prepared by Renea Diaz. . VTE Core Measure Inpt VTE Proph given/why not?: Unfractionated heparin SQ
--- NOTE | 2017-01-25 11:14 | Dialysis Progress Note ---
Nephrology Dialysis Note Date of Service: Jan 25, 2017. Subjective some N currently; no current chest pain or dyspnea currently; no abd pain; cardiology recommending cardiac cath Objective Date Time Temp Pulse Resp B/P (MAP) Pulse Ox O2 Delivery O2 Flow Rate FiO2 01/25/17 10:10 36.8 61 154/132 (139) 01/25/17 09:56 81 155/99 01/25/17 09:32 87 168/112 01/25/17 07:16 36.6 74 16 154/98 (116) 98 01/25/17 04:04 36.7 76 17 152/91 (111) 96 Room Air 01/25/17 04:00 Room Air 01/24/17 23:59 Room Air 01/24/17 23:18 36.9 80 18 150/89 (109) 97 Room Air 01/24/17 20:11 36.7 80 20 148/99 (115) 96 01/24/17 20:00 97 Room Air 01/24/17 16:29 37.4 83 18 137/89 (105) 95 Room Air 01/24/17 16:00 97 Room Air 01/24/17 15:32 36.8 80 144/91 (108) 01/24/17 15:15 80 137/80 01/24/17 15:00 89 145/86 01/24/17 14:45 80 129/78 01/24/17 14:35 81 131/81 01/24/17 14:30 89 127/76 01/24/17 14:15 80 142/91 01/24/17 14:00 81 132/81 01/24/17 13:45 79 150/93 01/24/17 13:30 80 162/105 01/24/17 13:15 79 169/105 01/24/17 13:00 81 145/95 01/24/17 12:45 77 166/107 01/24/17 12:30 77 168/108 01/24/17 12:15 77 168/108 01/24/17 12:05 37.0 84 197/122 (147) 01/24/17 12:00 77 183/114 01/24/17 12:00 97 Room Air 01/24/17 11:16 37.1 73 18 167/101 (123) 97 Room Air Physical Exam: General Appearance: WD/WN, no apparent distress (sitting up on hd on RA) Eyes: PERRL ENT: hearing grossly normal Neck: supple Respiratory/Chest: lungs clear, normal breath sounds, no respiratory distress Cardiovascular: regular rate, rhythm, no edema Abdomen: normal bowel sounds, non tender, soft Extremities: no pedal edema, + pertinent finding (L AVF + t/b) Neurologic/Psych: alert, normal mood/affect, oriented x 3 Skin: no jaundice, warm/dry, no rash, + pallor Current Inpatient Medications Medications (Trade) Dose Ordered Sig/Sachin Route Start Time Stop Time Status Last Admin Dose Admin Heparin Sodium (Porcine) (Heparin Sq 5000 Unit/0.5ml) 5,000 unit Q8 SQ 01/23/17 06:00 02/22/17 05:59 01/23/17 05:16 5,000 UNIT Acetaminophen (Tylenol Tab) 650 mg Q4H PRN PO 01/23/17 01:30 02/22/17 01:29 Insulin Aspart (novoLOG ASPART) SLIDING SCALE If C... ACHS SC 01/23/17 07:00 02/22/17 06:59 Glucose (Glucose 40% Gel) 15-30 GRAMS 15 GRAMS... UD PRN PO 01/23/17 01:30 02/22/17 01:29 Glucose (Glucose Chew Tab) 4-8 Tablets 4 Tabl... UD PRN PO 01/23/17 01:30 02/22/17 01:29 01/23/17 02:38 4 TABS Dextrose (Dextrose 50% 50ML Syringe) 25-50ML OF 50% DW IV FOR... UD PRN IV 01/23/17 01:30 02/22/17 01:29 Glucagon (Glucagon Inj) 1 mg UD PRN SQ 01/23/17 01:30 02/22/17 01:29 Promethazine HCl 12.5 mg/Sodium Chloride 50.5 ml @ 204 mls/hr Q6H PRN IV 01/23/17 01:30 02/22/17 01:29 Calcium Acetate (Phoslo Cap) 1,334 mg TIDM PRN PO 01/23/17 07:30 02/22/17 07:29 Calcium Acetate (Phoslo Cap) 2,668 mg TIDM PO 01/23/17 07:30 02/22/17 07:29 01/25/17 09:01 2,668 MG Calcium Carbonate (Tums Chew Tab) 1,500 mg HS PO 01/23/17 21:00 02/22/17 20:59 01/24/17 20:37 1,500 MG Escitalopram Oxalate (Lexapro Tab) 20 mg QAM PO 01/23/17 09:00 02/22/17 08:59 01/25/17 09:02 20 MG Famotidine (Pepcid Tab) 40 mg DAILY PO 01/23/17 09:00 02/22/17 08:59 01/25/17 09:02 40 MG Mirtazapine (Remeron Tab) 30 mg HS PO 01/23/17 21:00 02/22/17 20:59 01/24/17 20:38 30 MG Trazodone HCl (Desyrel Tab) 50 mg HS PO 01/23/17 21:00 02/22/17 20:59 01/24/17 20:38 50 MG Doxycycline Hyclate (Vibramycin Cap) 100 mg BID PO 01/23/17 09:00 02/02/17 08:59 01/25/17 09:03 100 MG Diphenhydramine HCl (Benadryl Cap) @ Q6H PRN PO 01/23/17 02:15 02/22/17 02:14 01/23/17 23:20 50 MG Acetaminophen/ Hydrocodone Bitart ([place] 5/325 Tab) 1 tab Q4 PRN PO 01/23/17 02:30 02/06/17 02:29 01/25/17 09:16 1 TAB Aspirin (Ecotrin Tab) 81 mg QAM PO 01/24/17 09:00 02/23/17 08:59 01/25/17 09:03 81 MG Ondansetron HCl (Zofran Inj) 4 mg Q6H PRN IV 01/24/17 12:15 02/23/17 12:14 01/25/17 11:03 4 MG Hydromorphone HCl (Dilaudid Inj) 0.5 mg Q8H PRN IV 01/24/17 16:30 02/06/17 02:29 01/25/17 11:04 0.5 MG Tramadol HCl (Ultram Tab) 50 mg Q4H PRN PO 01/24/17 12:30 02/23/17 12:29 01/24/17 23:52 50 MG Docusate Sodium (coLACE CAP) 100 mg DAILY PO 01/25/17 09:00 02/24/17 08:59 01/25/17 09:02 100 MG Epoetin Travis (Procrit Inj) 10,000 units TODAY@0830 IV. 01/25/17 08:30 01/25/17 23:59 Carvedilol (Coreg Tab) 6.25 mg BID PO 01/25/17 21:00 02/24/17 20:59 UNV Last 24 Hours Test 01/24/17 15:59 01/24/17 20:31 01/25/17 05:17 01/25/17 06:31 Bedside Glucose 115 mg/dl 96 mg/dl 79 mg/dl White Blood Count 3.32 K/uL Red Blood Count 3.29 M/uL Hemoglobin 10.2 g/dL Hematocrit 32.0 % Mean Corpuscular Volume 97.3 fL Mean Corpuscular Hemoglobin 31.0 pg Mean Corpuscular Hemoglobin Concent 31.9 g/dl RDW Standard Deviation 55.0 fL RDW Coefficient of Variation 15.5 % Platelet Count 123 K/uL Mean Platelet Volume 10.0 fL Sodium Level 138 mmol/L Potassium Level 4.9 mmol/L Chloride Level 100 mmol/L Carbon Dioxide Level 28 mmol/L Anion Gap 10.0 mmol/L Blood Urea Nitrogen 31 mg/dl Creatinine 6.90 mg/dl Est Creatinine Clear Calc Drug Dose 13.2 ml/min Estimated GFR () 8.4 Estimated GFR (Non- 7.3 BUN/Creatinine Ratio 4.4 Random Glucose 79 mg/dl Calcium Level 8.5 mg/dl Assessment & Plan 31 y/o F w/ ESRD a/w HTN urgency, hyperkalemia, chest discomfort, N after missing one session of dialysis. Still w/ intermittent CP>primary service evaluating ESRD -for routine hd today w/ as aggressive uf as tolerated; 2K bath; mini heparin; next hd tentatively for 6/5 as inpt or outpt but may need sooner tx depending on clinical status after cath Hyperkalemia, resolved -check bmp daily Anemia of chronic disease -epo w/ HD not indicated today HTN and recurrent chest pain w/ new WMA on TTE and ECG changes that come/go > for cath today -cont HD as toelrated Appreciate consult; will follow with you. Care coordinated w/ Dr. Ross
--- NOTE | 2017-01-25 11:15 | Discharge Summary ---
Discharge Summary Date of Service Jan 25, 2017. Discharge Summary Admission Date: January 23, 2017 at 00:44 Discharge Date: Jan 25, 2017 Discharge Disposition: Acute care facility ([facility]) Principal Diagnosis: 1. Chest pain, atypical, rule out ischemia 2. Hyperkalemia secondary to ESRD 3. ESRD on HD/Failed kidney transplant 4. HTN, Uncontrolled Secondary Diagnoses/Problems: 1. DM-2 2. Tobacco abuse disorder 3. Non compliant 4. Chronic anemia of CKD Procedures: Tele monitoring EKG serial Trop serial Echocardiogram CXR Dialysis on 01/23, 01/25 Consultations: Cardiology, Dr Ross Nephrology, Dr Leah Esteban Medication Reconciliation New Medications: Carvedilol (Carvedilol) 6.25 Mg Tab 6.25 MG PO BID for 30 Days, #60 TAB Continued Medications: Albuterol Hfa (Ventolin Hfa) 200 Puffs/26978 Mcg Aers 2 PUFFS INH QID PRN for Allergy Symptoms, INHALER Calcium Acetate (Phoslo 667 Mg) 667 Mg Cap 2668 MG PO WITH MEALS, CAP Calcium Acetate (Phoslo 667 Mg) 667 Mg Cap 1334 MG PO WITH SNACKS, CAP Calcium Carbonate (Tums) 500 Mg Chew 3 TABS PO HS Escitalopram Oxalate (Escitalopram Oxalate) 20 Mg Tab 20 MG PO QAM Famotidine (Pepcid) 40 Mg Tab 40 MG PO DAILY, TAB Hydrocodone/Acetaminophen 5MG/325MG ([place] 5MG/325MG) Tab 1-2 TABLETS PO Q6 PRN for Pain, TAB PRN PAIN Mirtazapine (Remeron) 30 Mg Tab 30 MG PO HS Trazodone Hcl (Trazodone) 50 Mg Tab 50 MG PO HS, TAB Discontinued Medications: Carvedilol (Coreg) 3.125 Mg Tab 3.125 MG PO BID Lisinopril (Lisinopril) 40 Mg Tab 40 MG PO HS Sulfa/Trimethoprim (Bactrim Ds 800MG/160MG) Tab 1 TAB PO BID, #6 TAB Admission Information HPI (per Admitting provider): HISTORY OF PRESENT ILLNESS: History obtained from patient and records. Medical history is significant for end-stage renal disease on HD, FSGS sp failed kidney transplant, hypertension, DM2 diet-controlled, chronic anemia (baseline hemoglobin 9-11), ongoing tobacco abuse, history of pericarditis sp colchicine treatment (10/2016). Recent confinement was about 3 weeks ago for syncope and hyperkalemia. Patient was in the ER a few days ago for left upper extremity pain, workup negative for blood clots. The patient was discharged on Bactrim for possible cellulitis. Patient missed dialysis about 2 days ago. Yesterday, the patient noted central chest pain going to the right, pleuritic, no shortness of breath. No fever, no chills, no unusual cough sx. emesis. No relief with nitro in the Emergency Room. Hospital Course ASSESSMENT AND PLAN : CHEST PAIN, ATYPICAL, RECURRENT Patient presented with atypical chest pain, lower , constant x 2 days [employer], worse with walking and movement and with no relieving factors. Denies any associated SOB, cough, leg swelling. She did miss her dialysis last Saturday as she over slept. Has had multiple episodes of chest pain in past, with negative stress test in 2015, last admission- questionable pericarditis. This time, she has similar chest pain, using IV Dilaudid/percocet scheduled. EKG on 01/24- poor r wave progression, T wave inversion in leads AVL, I, V5, V6, Repeat Echo- EF 45-50% (last one on 01/02-50-55%), moderate hypokinesis, new wall motion abnormality- anteroseptal. Need to rule out ischemia -Consulted cardiology- Plan is for cardiac cath given the changes in EKG, Echo at [facility] -D/D considered: PE with elevated d dimer , but VQ scan - normal, US duplex- negative, Pericarditis - uremic as prior hx of it but EKG not suggestive of pericarditis. Recent Echo 01/02/17 - no pericardial effusion. -Work up- Trop 0.104, 0.128 in setting of ESRD on HD S/P HYPERKALEMIA- Resolved Secondary to missing dialysis, came with elevated K of 5.5 -S/P Dialysis 01/23, 01/25 -S/P IV Calcium gluconate, bicarb, lasix for hyperkalemia ESRD ON HD/FAILED RENAL TRANSPLANT -Missed dialysis on saturday. -S/P Dialysis on 01/23/17, 01/25/17 -Nephrology on board. Discussed case with Dr Esteban. -Hold bactrim, ACEI HX OF LUE CELLULITIS - Resolved -On bactrim prior to admission - held and replaced with doxycycline- complete course of 7 days (Day 3) HTN Uncontrolled -Held ACEI -Increased coreg to 6.25 mg PO BID by cardiology today CHRONIC ANEMIA SECONDARY TO ESRD -Hb stable with no overt bleeding DM2 -Diet controlled, well controlled as of recent recent HgA1c (5.9 from July 2016) CHRONIC PAIN On narcotics prn - percocet outpatient -Using IV Dilaudid/Percocet scheduled though ordered PRN. Cautious about narcotic use TOBACCO ABUSE DISORDER Patient was counseled to stop smoking. DVT prophylaxis, Heparin subQ. FULL CODE DISPOSITION PLAN is cardiac cath today due to new EKG, Echo changes per cardiology Arrangements made by cardiology- accepting physician- Dr Farooq Velasquez. Transport via [facility]. Total time spent on discharge = 40 minutes This includes examination of the patient, discharge planning, medication reconciliation, and communication with other providers. Discharge Instructions Transferred to [facility]
[2017-01-25] MEDS ORDERED: CARVEDILOL 6.25 MG TAB PO SCH (21:00)
[2017-02-06] MEDS ORDERED: LISI40TA PO (07:33)
[2017-02-12] MEDS ORDERED: AMOX875T PO (12:45)
[2017-02-14] MEDS ORDERED: DOXY100C76 PO (15:33)
[2017-02-21] MEDS ORDERED: OXYC-57 PO (15:28)
[2017-03-06] MEDS ORDERED: CARV3.122 PO (10:28)
[2017-03-20] MEDS ORDERED: TOBR0.3S4 OPL (14:35)
[2017-03-20] MEDS ORDERED: DOXY100T PO (14:35)
[2017-04-24] MEDS ORDERED: CMD/25 PO (12:00)
[2017-04-26] MEDS ORDERED: CMD3 PO (16:37)
[2017-04-26] MEDS ORDERED: LISI20TA3 PO (16:37)
[2017-05-15] MEDS ORDERED: VNTHFA/IN INH (12:28)
[2017-05-15] MEDS ORDERED: LISI-725 PO (13:43)
[2017-05-15] MEDS ORDERED: CALC500C3 PO (13:50)
[2017-05-15] MEDS ORDERED: CRG125 PO (15:17)
[2017-05-15] MEDS ORDERED: NRV/5 PO (15:17)
[2017-05-15] MEDS ORDERED: BENZ100C7 PO (15:22)
[2017-05-15] MEDS ORDERED: FLUT0.15 NAE (15:33)
[2017-05-15] MEDS ORDERED: CALC0.5C PO (18:14)
[2017-05-15] MEDS ORDERED: MIRT30TA3 PO (19:24)
[2017-05-15] MEDS ORDERED: CALC667C4 PO ×2 (19:56→21:12)
[2017-05-15] MEDS ORDERED: TRAZ50TA35 PO (19:56)
[2017-05-15] MEDS ORDERED: LXP/20 PO (21:08)
[2017-05-15] MEDS ORDERED: FAMO40TA6 PO (23:12)
[2017-05-17] MEDS ORDERED: CRG25 PO (14:53)
[2017-05-21] MEDS ORDERED: APR25 PO (00:24)
[2017-05-21] MEDS ORDERED: APR50 PO (15:28)
[2017-05-21] MEDS ORDERED: ATV1 PO (15:28)
[2017-05-21] MEDS ORDERED: ativan PO (16:06)
[2017-06-11] MEDS ORDERED: VORT1TAB PO (07:51)
[2017-06-11] MEDS ORDERED: LORA-741 PO (07:51)
== END 2017-01-25 14:18 | disposition short-term general hospital (02) | DRG 313 ==
LOC: ENRESERVDT → ENRESERVTM → EDBD 22:25 → C.EDB 22:26 → C.2T 01-23 00:44
PROVIDERS: ADMIT Internal Medicine; ATTEND Internal Medicine
DX: R07.89 Other chest pain (principal); N18.6 End stage renal disease; I12.0 Hypertensive chronic kidney disease with stage 5 chronic kidney disease or end stage renal disease; Z94.0 Kidney transplant status; L03.114 Cellulitis of left upper limb; E11.22 Type 2 diabetes mellitus with diabetic chronic kidney disease; E87.5 Hyperkalemia; D63.1 Anemia in chronic kidney disease; Z79.899 Other long term (current) drug therapy; Z99.2 Dependence on renal dialysis; F17.200 Nicotine dependence, unspecified, uncomplicated

== ENCOUNTER 2017-02-09 09:56 | Emergency (ER) | payer OTHER ==
[~2017-02-09] VITALS: Ht 167.6 cm; Wt 87.5 kg
[~2017-02-09 09:56] MED LIST changes: -CARV3.122 PO; +CRG625 PO; -FAMO40TA6 PO; -HYDR-5688 PO; +LISI40TA PO; -LSN40 PO; -SULF800T23 PO
[2017-02-09 10:05] VITALS: TEMP 36.8; Ht 167.6 cm; Wt 87.5 kg
[2017-02-09] MEDS ORDERED: IBUPROFEN 600 MG TAB PO STA (10:35)
[2017-02-09] MEDS ORDERED: SODIUM CHLORIDE 0.65% NA SOLN 45 ML (OCEAN) STA (10:40)
[2017-02-09] MEDS ORDERED: AMOX875T PO (10:42)
[2017-02-09] MEDS ORDERED: OXYC-57 PO (10:42)
--- NOTE | 2017-02-09 10:42 | EMERGENCY ROOM VISIT NOTE ---
History Report prepared by Katia: Javad Forbes Under the Supervision of: Dr. Baljit Shaikh M.D. First contact with patient: 10:22 Chief Complaint: DENTAL PAIN Stated Complaint: MOUTH PAIN Nursing Triage Summary: 06/04 right sided maxillofacial pain, unsure if it is from teeth or sinuses. Pain started 3 days ago. Taking tylenol at home, last dose at 0800 today, not helping pain at all. History of Present Illness The patient is a 31 year old female who presents to the Emergency Room with complaints of dental pain that began 3 days ago. She rates her pain a 10/10 in severity. She has had multiple sinus infections in the past. She states that this pain feels similar to those past episodes. Her pain worsens with biting and movement. She denies any headaches. She has been taking Tylenol to try to help with the pain, but states that it has not been doing anything to help. Source of History: patient Onset: 3 days ago Position: other (Dental) Symptom Intensity: 10/10 Quality: ache Timing: constant Modifying Factors (Worsening): movement Associated Symptoms: No headache Note: She has pain over her sinuses. Review of Systems See HPI for pertinent positives & negatives. A total of 10 systems reviewed and were otherwise negative. Past Medical & Surgical Medical Problems: (1) CKD (chronic kidney disease) stage V requiring chronic dialysis (2) DM2 (diabetes mellitus, type 2) (3) Focal segmental glomerulosclerosis (4) HTN (hypertension) (5) Hyperkalemia (6) Migraine (7) Renal failure (8) Syncope Surgical Problems: (1) H/O knee surgery (2) H/O tubal ligation (3) H/O: (4) Kidney transplant status, living related donor Social History Problems: (1) Kidney transplanted Family History Crohn's disease FATHER Diabetes mellitus MOTHER Hypertension SISTER Social History Smoking Status: Current Every Day Smoker Alcohol Use: none Drug Use: none Marital Status: in relationship Housing Status: lives with family, lives with significant other Occupation Status: employed Current/Historical Medications Scheduled Amoxicillin & Pot Clavulanate (Augmentin 875-125 mg), 1 TAB PO BID Calcium Acetate (Phoslo 667 Mg), 2,668 MG PO WITH MEALS Calcium Acetate (Phoslo 667 Mg), 1,334 MG PO WITH SNACKS Calcium Carbonate (Tums), 3 TABS PO HS Carvedilol (Coreg), 3.125 MG PO BID Escitalopram Oxalate (Escitalopram Oxalate), 20 MG PO QAM Famotidine (Pepcid), 40 MG PO DAILY Lisinopril (Prinivil), 40 MG PO HS Mirtazapine (Remeron), 30 MG PO HS Trazodone Hcl (Trazodone), 50 MG PO HS Scheduled PRN Albuterol Hfa (Ventolin Hfa), 2 PUFFS INH QID PRN for Allergy Symptoms Oxycodone/Acetaminophen 5MG/325MG (Percocet 5MG/325MG), 1-2 TAB PO Q4H PRN for Pain Allergies Coded Allergies: Cefaclor (Verified Allergy, Unknown, Rash, 02/09/17) Reported by PT. Physical Exam Vital Signs Date Time Temp Pulse Resp B/P (MAP) Pulse Ox O2 Delivery O2 Flow Rate FiO2 02/09/17 10:54 78 18 160/103 100 02/09/17 10:05 36.8 83 18 178/110 100 Room Air Physical Exam GENERAL: Patient is a healthy-appearing well-nourished woman HEAD: Normocephalic atraumatic. EYES: Ocular movements intact pupils equal and react to light OROPHARYNX mucous membranes are moist no exudates present no erythema or edema present. Able to swallow her own saliva. No evidence of dental abscess or infection. Tender to the right maxillary sinus. No evidence of Darwin's Angina. NECK: Supple no nuchal rigidity. No evidence of meningitis or encephalitis on exam. CHEST: Good equal expansion LUNGS: Clear and equal to auscultation CARDIAC: Normal S1 and S2 ABDOMEN: Soft nontender no guarding BACK: No CVA tenderness EXTREMITIES: No pain upon palpation normal muscle strength in all groups no clubbing cyanosis or edema NEURO: Patient is following commands and answering questions appropriately. Alert and oriented x3 Cranial Nerves 2-12 grossly intact Medical Decision & Procedures Medications Administered Medications (Trade) Dose Ordered Sig/[place]achin Route Start Time Stop Time Status Last Admin Dose Admin Ibuprofen (Motrin Tab) 600 mg NOW STAT PO 02/09/17 10:35 02/09/17 10:37 DC 02/09/17 10:47 600 MG Amoxicillin/ Clavulanate Potassium (Augmentin Tab) 875 mg ONE ONCE PO 02/09/17 10:45 02/09/17 10:46 DC 02/09/17 10:47 875 MG Oxycodone/ Acetaminophen (Percocet 5-325mg Tab) 2 tab NOW ONCE PO 02/09/17 10:45 02/09/17 10:46 DC 02/09/17 10:48 2 TAB Sodium Chloride ([place] Nasal [place]) 2 sprays NOW STAT NA 02/09/17 10:40 02/09/17 10:41 DC 02/09/17 10:46 2 SPRAYS ED Course 1022: Past medical records reviewed. The patient was evaluated in room B7. A complete history and physical examination was performed. 1035: Ordered Motrin Tab 600 mg PO 1040: Ordered Sodium Chloride 2 sprays NA 1045: Ordered Oxycodone/Acetaminophen 2 tab PO, Augmentin Tab 875 mg PO 1100: Upon reexamination the patient is resting. I discussed results and treatment plan with the patient. She verbalizes agreement and understanding. The patient is ready for discharge. Medical Decision Differentials include sinusitis, dental abscess, and dental pain. Medication Reconciliation: I attest that I have personally reviewed the patient' s current medication list Blood Pressure Screening: Patient was found to have an elevated blood pressure and was referred to their primary care doctor for recheck and further treatment This is a 31-year-old female who presents emergency department complaining of sinus pressure beneath the right eye. The patient has no evidence of Darwin's angina on exam and has no evidence of meningitis or encephalitis. The patient denies any headache. Based on these findings I felt that the patient could be treated conservatively. She was given normal saline drops. She has no evidence of a tooth abscess on physical exam. The patient was started on Motrin Percocet and Augmentin in the emergency department. I stressed the need for follow-up with the patient's dentist as well as ENT if the pain is not resolving. She was told to return if she develops severe head and neck pain. Patient was in agreement with the treatment plan. Impression Primary Impression: Sinusitis Scribe Attestation The scribe's documentation has been prepared under my direction and personally reviewed by me in its entirety. I confirm that the note above accurately reflects all work, treatment, procedures, and medical decision making performed by me. Departure Information Dispostion Home / Self-Care Prescriptions Oxycodone/Acetaminophen 5MG/325MG (PERCOCET 5MG/325MG) Tab 1-2 TAB PO Q4H Y for Pain, #14 TAB Prov: Baljit Shaikh MD 02/09/17 Amoxicillin & Pot Clavulanate (Augmentin 875-125 mg) 1 Tab Tab 1 TAB PO BID for 10 Days, #20 TAB Prov: Baljit Shaikh MD 02/09/17 Referrals Adolph Aldridge M.D. (PCP) Albino López M.D. Forms HOME CARE DOCUMENTATION FORM, IMPORTANT VISIT INFORMATION Patient Instructions ED Sinusitis Abx Tx, Hypertension Dc, My [facility] Additional Instructions Need to see dentist on Saturday Follow up with Dr López's office for continued sinus pain You were found to have an elevated blood pressure today (>120 sytolic or >90 diastolic). Per medicare guidelines, you need to follow up with this blood pressure screening with your Primary Care Physician (PCP). For a new PCP call [phone]. You received narcotic or benzodiazepene medication while in the emergency room today. Do not drive, operate heavy machinery, or drink alcohol under the influence of this medication. Take 600 mg Ibuprofen every 6 hours Take Percocet for breakthrough pain You have been examined and treated today on an emergency basis only. This is not a substitute for, or an effort to provide, complete comprehensive medical care. It is impossible to recognize and treat all injuries or illnesses in a single emergency department visit. It is therefore important that you follow up closely with Dr Aldridge. Call as soon as possible for an appointment. Thank you for your time and consideration. I look forward to speaking with you again soon. Please don't hesitate to call us if you have any questions. Problem Qualifiers Primary Impression: Sinusitis Sinusitis location: frontal Chronicity: acute Recurrence: not specified as recurrent Qualified Codes: J01.10 - Acute frontal sinusitis, unspecified
[2017-02-09] MEDS ORDERED: AMOXICILLIN/CLAVULANATE TAB 875 MG TAB PO ONE (10:45)
[2017-02-09] MEDS ORDERED: OXYCODONE/ACETAMINOPHEN 5-325 TAB PO ONE (10:45)
[2017-02-09 10:54] VITALS: BP 160/103; PULSE 78; O2SAT 100
[2017-02-12] MEDS ORDERED: AMOX875T PO (12:45)
[2017-02-14] MEDS ORDERED: DOXY100C76 PO (15:33)
[2017-02-21] MEDS ORDERED: OXYC-57 PO (15:28)
[2017-02-28] MEDS ORDERED: AMLO-114 PO (08:43)
[2017-03-06] MEDS ORDERED: CARV3.122 PO (10:28)
[2017-03-08] MEDS ORDERED: ZFRODT4HP PO (15:53)
[2017-03-20] MEDS ORDERED: DOXY100T PO (14:35)
[2017-03-20] MEDS ORDERED: TOBR0.3S4 OPL (14:35)
[2017-04-24] MEDS ORDERED: CMD/25 PO (12:00)
[2017-04-26] MEDS ORDERED: CMD3 PO (16:37)
[2017-04-26] MEDS ORDERED: LISI20TA3 PO (16:37)
[2017-05-15] MEDS ORDERED: VNTHFA/IN INH (12:28)
[2017-05-15] MEDS ORDERED: LISI-725 PO (13:43)
[2017-05-15] MEDS ORDERED: CALC500C3 PO (13:50)
[2017-05-15] MEDS ORDERED: CRG125 PO (15:17)
[2017-05-15] MEDS ORDERED: NRV/5 PO (15:17)
[2017-05-15] MEDS ORDERED: BENZ100C7 PO (15:22)
[2017-05-15] MEDS ORDERED: FLUT0.15 NAE (15:33)
[2017-05-15] MEDS ORDERED: CALC0.5C PO (18:14)
[2017-05-15] MEDS ORDERED: MIRT30TA3 PO (19:24)
[2017-05-15] MEDS ORDERED: CALC667C4 PO ×2 (19:56→21:12)
[2017-05-15] MEDS ORDERED: TRAZ50TA35 PO (19:56)
[2017-05-15] MEDS ORDERED: LXP/20 PO (21:08)
[2017-05-15] MEDS ORDERED: FAMO40TA6 PO (23:12)
[2017-05-17] MEDS ORDERED: CRG25 PO (14:53)
[2017-05-21] MEDS ORDERED: APR25 PO (00:24)
[2017-05-21] MEDS ORDERED: ATV1 PO (15:28)
[2017-05-21] MEDS ORDERED: APR50 PO (15:28)
[2017-05-21] MEDS ORDERED: ativan PO (16:06)
[2017-06-11] MEDS ORDERED: LORA-741 PO (07:51)
[2017-06-11] MEDS ORDERED: VORT1TAB PO (07:51)
== END 2017-02-09 10:55 | disposition home or self-care (01) ==
LOC: C.EDB 09:57
DX: J01.10 Acute frontal sinusitis, unspecified (principal); N18.4 Chronic kidney disease, stage 4 (severe); Z94.0 Kidney transplant status; E11.9 Type 2 diabetes mellitus without complications; I12.9 Hypertensive chronic kidney disease with stage 1 through stage 4 chronic kidney disease, or unspecified chronic kidney disease; E87.5 Hyperkalemia; G43.909 Migraine, unspecified, not intractable, without status migrainosus; Z83.79 Family history of other diseases of the digestive system; Z83.3 Family history of diabetes mellitus; Z82.49 Family history of ischemic heart disease and other diseases of the circulatory system; F17.210 Nicotine dependence, cigarettes, uncomplicated; Z79.899 Other long term (current) drug therapy

== ENCOUNTER → 2017-02-12 | Day surgery (SDC) | payer OTHER ==
[2017-02-06 07:34] VITALS: BMI 31.0
[~2017-02-12] VITALS: Ht 167.6 cm; Wt 87.0 kg
[~2017-02-12] MED LIST changes: +ACET-1256 PO; +AMLO-114 PO; +AMOX875T PO; +APR25 PO; +APR50 PO; +ATV1 PO; +BENZ100C7 PO; +BENZ100C84 PO; +CALC0.5C PO; +CALC500C3 PO; +CALC667C4 PO; +CARV25TA2 PO; +CARV3.122 PO; +CEPH-571 PO; +CEPH500C PO; +CLINDAMYCIN 600 MG/54 ML D5W IV SCH; +CMD/25 PO; +CMD3 PO; +CRG125 PO; +CRG25 PO; -CRG625 PO; +DOXY100C76 PO; +DOXY100T PO; +FAMO40TA6 PO; +FLUT0.15 NAE; +FRS/80 PO; +HYDR-4717 PO; +LISI-725 PO; +LISI20TA3 PO; +LORA-741 PO; +LSN20 PO; +LSN40 PO; +LXP/20 PO; +MIRT30TA3 PO; +NRV/10 PO; +NRV/5 PO; +ONDA4TAB10 SL; +OXYC-57 PO; +PRED10TA; +SODIUM CHLORIDE 0.9% 1000ML 1,000 ML IV SCH; +TOBR0.3S4 OPL; +TRAM-10 PO; +TRAZ50TA35 PO; +VNTHFA/IN INH; +VORT1TAB PO; +ZFRODT4HP PO; +ativan PO
--- NOTE | 2017-02-12 06:05 | History and Physical ---
History & Physical Date of Service Feb 12, 2017. History & Physical Chief Complaint: End stage renal disease History of Present Illness The patient is a 29 year old female with hx of IDDM and renal failure and renal transplant, with a permcath in place. She has a failed fistula. She had a new fistula created and is now admitted for insertion of peritoneal dialysis catheter. Denies GARNETT, fever, chills, chest pain, SOB, abd pain, N/V, rest pain, claudication, other complaints. Allergies Cefaclor (Verified Allergy, Unknown, Rash, 05/18/15) Reported by PT. Surgical / Medical History Hx Cardiac Surgery: No Hx Abdominal Surgery: No Hx Cancer Surgery: No Hx Thoracic Surgery: No Hx Orthopedic: Yes Hx Urinary Tract Surgery: No HX Other Surgery: Yes Past Medical/Surgical History: Diabetes, Kidney Disease Family History Heart disease Hypertension Social History Smoking Status: Former Smoker Hx Tobacco Use In Past Year?: No Hx Alcohol Use - Type & Amnt: Yes (VODKA 1GLASS EVERY SO OFTEN) Hx Substance Use -Type & Amnt: No Review of Systems Constitutional: No chills, No fever, No malaise Skin: No change in color Eyes: No visual changes ENMT: No sore throat Respiratory: No BADILLO, No cough, No hemoptysis, No short of breath Cardiovascular: No chest pain, No edema, No intermittent claudication, No palpitations, No syncope Gastrointestinal: No abdominal pain, No nausea Genitourinary - Female: + dysuria, + hematuria Neurologic: No dizziness, No lethargy, No numbness, No tingling Physical Exam: Constitutional: General Apperance: well-nourished, well-developed, obese (morbidly) Level of Distress: NAD Ambulation: ambulating normally Psychiatric: Mental Status: active & alert, normal mood, normal affect Orientation: oriented except where noted, to time, to place, to person Memory: recent memory normal, remote memory normal Head: normocephalic, atraumatic Eyes: EOM: EOMI ENMT: normal ENT inspection, hearing grossly normal Neck: supple, trachea midline Lungs: Respiratory effort: no dyspnea Auscultation: breath sounds normal, no wheezing, no rales/crackles, no rhonchi Cardiovascular: Apical Impulse: not displaced Heart Auscultation: RRR, no murmurs, no rubs, no gallops Peripheral Pulses: Pulses: full and equal, in all extremities except if noted Bruits: none appreciated Carotid Pulse: normal on the left, normal on the right Brachial Pulses: normal on the left, normal on the right Radial Pulse: normal on the left, normal on the right, pertinent finding ( AVF with good thrill Femoral Pulse: normal on the left, normal on the right Posterior Tibialis Pulse: normal on the left, normal on the right Dorsalis Pedis Pulse: normal on the left, normal on the right Abdomen: Bowel Sounds: normal Inspection & Palpation: soft, non-distended, no tenderness, guarding & rebound. Small umbilical hernia present Musculoskeletal: normal strength (5/5 throughout), normal tone Extremities: Upper Right: no cyanosis, no edema, no varicosities Upper Left: no cyanosis, no edema, no varicosities Lower Right: no cyanosis, no edema, no varicosities Lower Left: no cyanosis, no edema, no varicosities Neurologic: Cranial Nerves: grossly intact Sensation: grossly intact ASSESSMENT and PLAN: Imp: End stage renal disease Plan: Patient admitted for insertion of CAPD catheter and repair of small umbilical hernia. I have discussed the risks options and benefits of the procedure with the patient. The patient understands the risks options and benefits and agrees to the procedure.
[2017-02-12 12:49] VITALS: BP 152/86; PULSE 86; TEMP 37.2; O2SAT 98; Ht 167.6 cm; Wt 87.0 kg
[2017-02-12 13:30] LABS: BUN/CREATININE RATIO 2.8 (10-20); CALCIUM 8.4 mg/dl (8.5-10.1); CREATININE 9.3 mg/dl (0.60-1.20); POTASSIUM 4.5 mmol/L (3.5-5.1)
--- NOTE | 2017-02-12 16:23 | Progress Note ---
Progress Note Date of Service Feb 12, 2017. Progress Note Pt procedure bumped by an emergency surgery. After discussion with pt, she wishes to reschedule. Office will call her to reschedule. pt discharged to home with family
--- NOTE | 2017-02-12 16:56 | Anesthesiology Progress Note ---
Anesthesia Progress Note Date of Service Feb 12, 2017. Progress Notes The patient was scheduled for surgery with Dr. Claudio. Her surgery has been delayed due to earlier scheduled surgeries taking longer than planned. Dr. Claudio has an emergency surgery that would further delay her surgery. The patient did not want to wait and decided to leave without having her surgery today.
== END | disposition home or self-care (01) ==
LOC: C.ACU 12:19
PROVIDERS: ATTEND Surgery Vascular Surgery
DX: E11.22 Type 2 diabetes mellitus with diabetic chronic kidney disease (principal); N18.6 End stage renal disease; Z99.2 Dependence on renal dialysis; Z79.4 Long term (current) use of insulin; Z53.8 Procedure and treatment not carried out for other reasons; K42.9 Umbilical hernia without obstruction or gangrene; Z79.899 Other long term (current) drug therapy

== ENCOUNTER 2017-02-15 16:46 | Emergency (ER) | payer OTHER ==
[~2017-02-15] VITALS: Ht 167.6 cm; Wt 86.3 kg
[~2017-02-15 16:46] MED LIST changes: -ACET-1256 PO; -AMLO-114 PO; -AMOX875T PO; -APR25 PO; -APR50 PO; -ATV1 PO; -BENZ100C7 PO; -BENZ100C84 PO; -CALC0.5C PO; -CALC500C3 PO; -CALC667C4 PO; -CARV25TA2 PO; -CARV3.122 PO; -CEPH-571 PO; -CEPH500C PO; -CLINDAMYCIN 600 MG/54 ML D5W IV SCH; -CMD/25 PO; -CMD3 PO; -CRG125 PO; -CRG25 PO; -DOXY100T PO; -FAMO40TA6 PO; -FLUT0.15 NAE; -FRS/80 PO; -HYDR-4717 PO; -LISI-725 PO; -LISI20TA3 PO; -LORA-741 PO; -LSN20 PO; -LSN40 PO; -LXP/20 PO; -MIRT30TA3 PO; -NRV/10 PO; -NRV/5 PO; -ONDA4TAB10 SL; -OXYC-57 PO; -PRED10TA; -SODIUM CHLORIDE 0.9% 1000ML 1,000 ML IV SCH; -TOBR0.3S4 OPL; -TRAM-10 PO; -TRAZ50TA35 PO; -VNTHFA/IN INH; -VORT1TAB PO; -ZFRODT4HP PO; -ativan PO
[2017-02-15 16:50] VITALS: Ht 167.6 cm; Wt 86.3 kg
[2017-02-15] MEDS ORDERED: SODIUM CHLORIDE 0.9% 1000ML 500 ML IV ONE (19:02)
[2017-02-15] MEDS ORDERED: HYDROmorphone INJ 1 MG/ML SYR IV STA ×2 (19:02→20:42)
[2017-02-15] MEDS ORDERED: ALBUT/IPRATROP 3MG/0.5MG NEB 3 ML VIAL INH STA (19:02)
[2017-02-15] MEDS ORDERED: ONDANSETRON INJ 2 MG/ML 2 ML VIAL IV STA (19:02)
[2017-02-15] MEDS ORDERED: ACETAMINOPHEN 500 MG TAB PO STA (19:02)
--- NOTE | 2017-02-15 19:05 | EMERGENCY ROOM VISIT NOTE ---
History Report prepared by Katia: Christy Emery Under the Supervision of: Dr. Baljit Shaikh M.D. First contact with patient: 18:09 Chief Complaint: BACK PAIN Stated Complaint: BACK PAIN SHOOTING DOWN LEGS AND INTO ARMS History of Present Illness The patient is a 31 year old female who presents to the Emergency Room with complaints of constant severe back pain beginning 5 hours prior to arrival. The pain radiates into her hips and down her legs. She also notes pain radiating into her arms. The patient is experiencing pain with ambulation. She is a dialysis patient and receives dialysis Saturday, Saturday, Saturday. Source of History: patient Onset: 5 hours REGISTRY NP Position: back Symptom Intensity: severe Timing: constant Note: The patient is experiencing pain in hips, legs and arms. She notes pain with ambulation. Review of Systems See HPI for pertinent positives & negatives. A total of 10 systems reviewed and were otherwise negative. Past Medical & Surgical Medical Problems: (1) CKD (chronic kidney disease) stage V requiring chronic dialysis (2) DM2 (diabetes mellitus, type 2) (3) Focal segmental glomerulosclerosis (4) HTN (hypertension) (5) Hyperkalemia (6) Migraine (7) Renal failure (8) Syncope Surgical Problems: (1) H/O knee surgery (2) H/O tubal ligation (3) H/O: (4) Kidney transplant status, living related donor Social History Problems: (1) Kidney transplanted Family History Crohn's disease FATHER Diabetes mellitus MOTHER Hypertension SISTER Social History Smoking Status: Current Every Day Smoker Alcohol Use: none Drug Use: none Marital Status: in relationship Housing Status: lives with family, lives with significant other Occupation Status: employed Current/Historical Medications Scheduled Calcium Acetate (Phoslo 667 Mg), 2,668 MG PO WITH MEALS Calcium Acetate (Phoslo 667 Mg), 1,334 MG PO WITH SNACKS Calcium Carbonate (Tums), 3 TABS PO HS Carvedilol (Coreg), 3.125 MG PO BID Doxycycline Monohydrate (Monodox), 100 MG PO BID Escitalopram Oxalate (Escitalopram Oxalate), 20 MG PO QAM Famotidine (Pepcid), 40 MG PO QAM Fluticasone Propionate (Nasal) (Flonase Allergy Relief), 2 SPRAY FRED DAILY Lisinopril (Prinivil), 40 MG PO HS Mirtazapine (Remeron), 30 MG PO HS Trazodone Hcl (Trazodone), 50 MG PO HS Scheduled PRN Albuterol Hfa (Ventolin Hfa), 2 PUFFS INH QID PRN for Allergy Symptoms Oxycodone/Acetaminophen 5MG/325MG (Percocet 5MG/325MG), 1-2 TAB PO Q4H PRN for Pain Allergies Coded Allergies: Cefaclor (Verified Allergy, Unknown, Rash, 02/15/17) Reported by PT. Amoxicillin (Verified Adverse Reaction, Unknown, VOMITING, 02/15/17) Clavulanic Acid (Verified Adverse Reaction, Unknown, VOMITING, 02/15/17) Physical Exam Vital Signs Date Time Temp Pulse Resp B/P (MAP) Pulse Ox O2 Delivery O2 Flow Rate FiO2 02/15/17 21:17 90 18 173/110 99 Room Air 02/15/17 20:41 37.5 98 18 150/89 93 Room Air 02/15/17 18:45 38.1 98 20 174/116 95 Room Air 02/15/17 16:50 38.6 104 20 176/100 98 Room Air Physical Exam GENERAL: Patient is a healthy-appearing well-nourished female HEAD: Normocephalic atraumatic EYES: Ocular movements intact pupils equal and react to light OROPHARYNX mucous membranes are moist no exudates present no erythema or edema present NECK: Supple no nuchal rigidity CHEST: Good equal expansion LUNGS: Clear and equal to auscultation CARDIAC: Normal S1 and S2 ABDOMEN: Soft nontender no guarding BACK: tender to L5/L4 area EXTREMITIES: No pain upon palpation normal muscle strength in all groups no clubbing cyanosis or edema NEURO: Patient is following commands and answering questions appropriately. Alert and oriented x3 Cranial Nerves 2-12 grossly intact Medical Decision & Procedures ER Provider Diagnostic Interpretation: Radiology results as stated below per my review and radiologist interpretation: LUMBAR SPINE CT CT DOSE: 1026.03 mGy.cm HISTORY: Pain Pt c/o low back pain TECHNIQUE: Multiaxial CT images of the lumbar spine were performed and reformatted in the sagittal and coronal plane without the use of contrast. COMPARISON: None. FINDINGS: No fractures. No subluxation. Paraspinal soft tissues are unremarkable. Minimal/mild broad-based disc bulges L4-L5 and L5-S1. IMPRESSION: Minimal disc bulges L4-L5 and L5-S1. Otherwise negative study. Electronically signed by: Adolph Rizo M.D. 02/15/2017 7:54 PM Dictated Date/Time: 02/15/2017 7:50 PM CHEST ONE VIEW PORTABLE CLINICAL HISTORY: Sepsis dyspnea COMPARISON STUDY: 01/22/2017 FINDINGS: The bones soft tissues and hemidiaphragms are normal. The cardiomediastinal silhouette is normal. The lungs are clear. The pulmonary vasculature is normal. IMPRESSION: Negative chest. Electronically signed by: Adolph Rizo M.D. 02/15/2017 7:31 PM Dictated Date/Time: 02/15/2017 7:31 PM Laboratory Results 02/15/17 19:15 Red Blood Count 3.34, Mean Corpuscular Volume 98.2, Mean Corpuscular Hemoglobin 31.4, Mean Corpuscular Hemoglobin Concent 32.0, Mean Platelet Volume 9.8, Neutrophils (%) (Auto) 60.9, Lymphocytes (%) (Auto) 18.7, Monocytes (%) (Auto) 14.8, Eosinophils (%) (Auto) 4.8, Basophils (%) (Auto) 0.4, Neutrophils # (Auto ) 1.40, Lymphocytes # (Auto) 0.43, Monocytes # (Auto) 0.34, Eosinophils # (Auto ) 0.11, Basophils # (Auto) 0.01 02/15/17 19:15 Test 02/15/17 19:15 02/15/17 19:21 02/15/17 19:26 White Blood Count 2.30 K/uL (4.8-10.8) Red Blood Count 3.34 M/uL (4.2-5.4) Hemoglobin 10.5 g/dL (12.0-16.0) Hematocrit 32.8 % (37-47) Mean Corpuscular Volume 98.2 fL (80-100) Mean Corpuscular Hemoglobin 31.4 pg (25-34) Mean Corpuscular Hemoglobin Concent 32.0 g/dl (32-36) Platelet Count 110 K/uL (130-400) Mean Platelet Volume 9.8 fL (7.4-10.4) Neutrophils (%) (Auto) 60.9 % Lymphocytes (%) (Auto) 18.7 % Monocytes (%) (Auto) 14.8 % Eosinophils (%) (Auto) 4.8 % Basophils (%) (Auto) 0.4 % Neutrophils # (Auto) 1.40 K/uL (1.4-6.5) Lymphocytes # (Auto) 0.43 K/uL (1.2-3.4) Monocytes # (Auto) 0.34 K/uL (0.11-0.59) Eosinophils # (Auto) 0.11 K/uL (0-0.5) Basophils # (Auto) 0.01 K/uL (0-0.2) RDW Standard Deviation 55.5 fL (36.4-46.3) RDW Coefficient of Variation 15.7 % (11.5-14.5) Immature Granulocyte % (Auto) 0.4 % Immature Granulocyte # (Auto) 0.01 K/uL (0.00-0.02) Prothrombin Time 10.8 SECONDS (9.0-12.0) Prothromb Time International Ratio 1.0 (0.9-1.1) Activated Partial Thromboplast Time 26.6 SECONDS (21.0-31.0) Partial Thromboplastin Ratio 1.0 Anion Gap 7.0 mmol/L (3-11) Est Creatinine Clear Calc Drug Dose 19.2 ml/min Estimated GFR () 13.4 Estimated GFR (Non- 11.5 BUN/Creatinine Ratio 2.2 (10-20) Calcium Level 9.0 mg/dl (8.5-10.1) Total Bilirubin 0.4 mg/dl (0.2-1) Aspartate Amino Transf (AST/SGOT) 28 U/L (15-37) Alanine Aminotransferase (ALT/SGPT) 26 U/L (12-78) Alkaline Phosphatase 71 U/L (45-117) Total Protein 7.9 gm/dl (6.4-8.2) Albumin 3.4 gm/dl (3.4-5.0) Globulin 4.5 gm/dl (2.5-4.0) Albumin/Globulin Ratio 0.8 (0.9-2) Bedside Lactic Acid Venous 0.63 mmol/L (0.90-1.70) Urine Color YELLOW Urine Appearance CLOUDY (CLEAR) Urine pH >= 9.0 (4.5-7.5) Urine Specific [place] 1.011 (1.000-1.030) Urine Protein 1+ (NEG) Urine Glucose (UA) TRACE (NEG) Urine Ketones NEG (NEG) Urine Occult Blood TRACE (NEG) Urine Nitrite NEG (NEG) Urine Bilirubin NEG (NEG) Urine Urobilinogen NEG (NEG) Urine Leukocyte Esterase NEG (NEG) Urine WBC (Auto) 1-5 /hpf (0-5) Urine RBC (Auto) 0-4 /hpf (0-4) Urine Hyaline Casts (Auto) 0 /lpf (0-5) Urine Epithelial Cells (Auto) >30 /lpf (0-5) Urine Bacteria (Auto) 1+ (NEG) Urine Pathogenic Casts /lpf (0) Date/Time Source Procedure Growth Status 02/15/17 19:26 Urine,Catheterized Urine Culture - Final MORE THAN THREE TYPES OF ORGANISMS IA... Complete Labs reviewed by ED physician. Medications Administered Medications (Trade) Dose Ordered Sig/Sachin Route Start Time Stop Time Status Last Admin Dose Admin Sodium Chloride 500 ml @ 999 mls/hr Q31M ONCE IV 02/15/17 19:02 02/15/17 19:32 DC 02/15/17 19:02 999 MLS/HR Hydromorphone HCl (Dilaudid Inj) 1 mg NOW STAT IV 02/15/17 19:02 02/15/17 19:05 DC 02/15/17 19:28 1 MG Ondansetron HCl (Zofran Inj) 4 mg NOW STAT IV 02/15/17 19:02 02/15/17 19:05 DC 02/15/17 19:27 4 MG Albuterol/ Ipratropium (Duoneb) 3 ml NOW STAT INH 02/15/17 19:02 02/15/17 19:06 DC 02/15/17 19:27 3 ML Acetaminophen (Tylenol Tab) 1,000 mg NOW STAT PO 02/15/17 19:02 02/15/17 19:06 DC 02/15/17 19:27 1,000 MG Hydromorphone HCl (Dilaudid Inj) 1 mg NOW STAT IV 02/15/17 20:42 02/15/17 20:43 DC 02/15/17 21:17 1 MG Promethazine HCl 25 mg/Sodium Chloride 51 ml @ 204 mls/hr NOW STAT IV 02/15/17 20:42 02/15/17 20:56 DC 02/15/17 21:07 204 MLS/HR Oxycodone/ Acetaminophen (Percocet 5/ 325MG Home Pack) 1 homepack UD ONCE PO 02/15/17 20:45 02/15/17 20:46 DC 02/15/17 21:16 1 HOMEPACK Albuterol (Ventolin Hfa Inhaler) 2 puffs NOW ONCE INH 02/15/17 20:45 02/15/17 20:46 DC 02/15/17 21:16 2 PUFFS ED Course 1899: Past medical records reviewed. The patient was evaluated in room B9. A complete history and physical examination was performed. 1901: Tylenol Tab 1,000 mg PO, Duoneb 3 ml INH, Zofran Inj 4 mg IV, Dilaudid Inj 1 mg IV, Sodium Chloride 500 ml @ 999 mls/hr IV. 2041: Dilaudid Inj 1 mg IV. 2044: Ventolin Hfa Inhaler 2 puffs INH, Percocet 5/325 MG Home Pack 1 homepack PO. 2052: Upon reexamination the patient is hemodynamically stable. I discussed results and treatment plan with the patient. She verbalizes agreement and understanding. The patient is ready for discharge. Medical Decision Differential diagnosis: Etiologies such as musculoskeletal, disc herniation, fracture, aortic disease, metastatic disease, cord compression, discitis, infection, renal colic, gastrointestinal, acute exacerbation of chronic back pain, sciatica, cauda equina, as well as others were entertained. Medication Reconciliation: I attest that I have personally reviewed the patient' s current medication list. Blood Pressure Screening: Patient was found to have an elevated blood pressure and was referred to their primary care doctor for recheck and further treatment This is a 31-year-old female who presents emergency department complaining of fever and low back pain. I will note that the patient's white blood cell count appears to be at its baseline. She has no evidence of meningitis encephalitis on examination, an IV was established, patient given normal saline bolus, Dilaudid zofran. Repeat examination revealed improvement patient's symptoms. The patient was sent for CT respond which did not show any acute process. I do believe that the patient is well enough that she can be discharged home for follow-up with orthopedics. Patient was in agreement with the treatment plan. Impression Primary Impression: Back pain Scribe Attestation The scribe's documentation has been prepared under my direction and personally reviewed by me in its entirety. I confirm that the note above accurately reflects all work, treatment, procedures, and medical decision making performed by me. Departure Information Dispostion Home / Self-Care Prescriptions Oxycodone/Acetaminophen 5MG/325MG (PERCOCET 5MG/325MG) Tab 1-2 TAB PO Q4H Y for Pain, #14 TAB Prov: Baljit Shaikh MD 02/15/17 Referrals Adolph Aldridge M.D. (PCP) Forms HOME CARE DOCUMENTATION FORM, IMPORTANT VISIT INFORMATION, School Instructions, Work Instructions Patient Instructions Back Pain - [facility], [facility] Additional Instructions Continue taking Doxycyline Take inhaler twice every 6 hours You were found to have an elevated blood pressure today (>120 sytolic or >90 diastolic). Per medicare guidelines, you need to follow up with this blood pressure screening with your Primary Care Physician (PCP). For a new PCP call [phone]. You received narcotic or benzodiazepene medication while in the emergency room today. Do not drive, operate heavy machinery, or drink alcohol under the influence of this medication. Take 600 mg Ibuprofen every 6 hours Take Percocet for breakthrough pain You have been examined and treated today on an emergency basis only. This is not a substitute for, or an effort to provide, complete comprehensive medical care. It is impossible to recognize and treat all injuries or illnesses in a single emergency department visit. It is therefore important that you follow up closely with Dr Aldridge. Call as soon as possible for an appointment. Thank you for your time and consideration. I look forward to speaking with you again soon. Please don't hesitate to call us if you have any questions. Problem Qualifiers Primary Impression: Back pain Back pain location: low back pain Chronicity: acute Back pain laterality: midline Sciatica presence: without sciatica Qualified Codes: M54.5 - Low back pain
--- NOTE | 2017-02-15 19:32 | DIAGNOSTIC IMAGING REPORT ---
CHEST ONE VIEW PORTABLE CLINICAL HISTORY: Sepsis dyspnea COMPARISON STUDY: 01/22/2017 FINDINGS: The bones soft tissues and hemidiaphragms are normal. The cardiomediastinal silhouette is normal. The lungs are clear. The pulmonary vasculature is normal. IMPRESSION: Negative chest. Electronically signed by: Adolph Rizo M.D. 02/15/2017 7:31 PM Dictated Date/Time: 02/15/2017 7:31 PM
[2017-02-15 19:34] LABS: BASO % 0.4 %; BASO ABS # 0.01 K/uL (0-0.2); COMPLETE YES; EOS % 4.8 %; HEMATOCRIT 32.8 % (37-47); IG% 0.4 %; LYMPH % 18.7 %; LYMPH ABS # 0.43 K/uL (1.2-3.4); MEAN CELL VOLUME 98.2 fL (80-100); MEAN CORPUSCULAR HEMOGLOBIN 31.4 pg (25-34); MEAN PLATELET VOLUME 9.8 fL (7.4-10.4); MONO % 14.8 %; NEUT % 60.9 %; PLATELET COUNT 110 K/uL (130-400); RED BLOOD COUNT 3.34 M/uL (4.2-5.4)
[2017-02-15 19:41] LABS: PROTHROMBIN TIME (PATIENT) 10.8 SECONDS (9.0-12.0)
--- NOTE | 2017-02-15 19:56 | DIAGNOSTIC IMAGING REPORT ---
LUMBAR SPINE CT CT DOSE: 1026.03 mGy.cm HISTORY: Pain Pt c/o low back pain TECHNIQUE: Multiaxial CT images of the lumbar spine were performed and reformatted in the sagittal and coronal plane without the use of contrast. COMPARISON: None. FINDINGS: No fractures. No subluxation. Paraspinal soft tissues are unremarkable. Minimal/mild broad-based disc bulges L4-L5 and L5-S1. IMPRESSION: Minimal disc bulges L4-L5 and L5-S1. Otherwise negative study. Electronically signed by: Adolph Rizo M.D. 02/15/2017 7:54 PM Dictated Date/Time: 02/15/2017 7:50 PM
[2017-02-15 20:01] LABS: URINE APPEARANCE CLOUDY (CLEAR); URINE BILIRUBIN NEG (NEG); URINE COLOR YELLOW; URINE EPITHELIAL CELL AUTO >30 /lpf (0-5); URINE NITRITE NEG (NEG); URINE PH >= 9.0 (4.5-7.5); URINE SPECIFIC GRAVITY 1.011 (1.000-1.030); UROBILINOGEN NEG (NEG); ZZURINE CULT IF INDIC CATH YES
[2017-02-15 20:04] LABS: MANUAL MICROSCOPIC REQUIRED? NO; REVIEW REQ? YES; SULFASALICYLIC ACID POS (NEG)
[2017-02-15 20:16] LABS: ALB/GLOB RATIO 0.8 (0.9-2); BUN/CREATININE RATIO 2.2 (10-20); CREATININE 4.7 mg/dl (0.60-1.20); POTASSIUM 3.9 mmol/L (3.5-5.1)
[2017-02-15 20:41] VITALS: TEMP 37.5
[2017-02-15] MEDS ORDERED: PROMETHAZINE HCL INJ 25 MG in SODIUM CHLORIDE 0.9% 50ML 50 ML IV STA (20:42)
[2017-02-15] MEDS ORDERED: PERCOCET HOME PACK PO ONE (20:45)
[2017-02-15] MEDS ORDERED: OXYC-57 PO (20:45)
[2017-02-15] MEDS ORDERED: ALBUTEROL HFA 8 GM INHALER INH ONE (20:45)
[2017-02-15 21:17] VITALS: BP 173/110; PULSE 90; O2SAT 99
[2017-02-21] MEDS ORDERED: OXYC-57 PO (15:28)
[2017-02-28] MEDS ORDERED: AMLO-114 PO (08:43)
[2017-03-06] MEDS ORDERED: CARV3.122 PO (10:28)
[2017-03-08] MEDS ORDERED: ZFRODT4HP PO (15:53)
[2017-03-20] MEDS ORDERED: DOXY100T PO (14:35)
[2017-03-20] MEDS ORDERED: TOBR0.3S4 OPL (14:35)
[2017-04-24] MEDS ORDERED: CMD/25 PO (12:00)
[2017-04-26] MEDS ORDERED: CMD3 PO (16:37)
[2017-04-26] MEDS ORDERED: LISI20TA3 PO (16:37)
[2017-05-15] MEDS ORDERED: VNTHFA/IN INH (12:28)
[2017-05-15] MEDS ORDERED: LISI-725 PO (13:43)
[2017-05-15] MEDS ORDERED: CALC500C3 PO (13:50)
[2017-05-15] MEDS ORDERED: CRG125 PO (15:17)
[2017-05-15] MEDS ORDERED: NRV/5 PO (15:17)
[2017-05-15] MEDS ORDERED: BENZ100C7 PO (15:22)
[2017-05-15] MEDS ORDERED: FLUT0.15 NAE (15:33)
[2017-05-15] MEDS ORDERED: CALC0.5C PO (18:14)
[2017-05-15] MEDS ORDERED: MIRT30TA3 PO (19:24)
[2017-05-15] MEDS ORDERED: TRAZ50TA35 PO (19:56)
[2017-05-15] MEDS ORDERED: CALC667C4 PO ×2 (19:56→21:12)
[2017-05-15] MEDS ORDERED: LXP/20 PO (21:08)
[2017-05-15] MEDS ORDERED: FAMO40TA6 PO (23:12)
[2017-05-17] MEDS ORDERED: CRG25 PO (14:53)
[2017-05-21] MEDS ORDERED: APR25 PO (00:24)
[2017-05-21] MEDS ORDERED: APR50 PO (15:28)
[2017-05-21] MEDS ORDERED: ATV1 PO (15:28)
[2017-05-21] MEDS ORDERED: ativan PO (16:06)
[2017-06-11] MEDS ORDERED: VORT1TAB PO (07:51)
[2017-06-11] MEDS ORDERED: LORA-741 PO (07:51)
== END 2017-02-15 21:29 | disposition home or self-care (01) ==
LOC: C.EDB 16:47
DX: M54.5 Low back pain (principal); I12.0 Hypertensive chronic kidney disease with stage 5 chronic kidney disease or end stage renal disease; E11.22 Type 2 diabetes mellitus with diabetic chronic kidney disease; N18.5 Chronic kidney disease, stage 5; F17.200 Nicotine dependence, unspecified, uncomplicated; Z99.2 Dependence on renal dialysis; Z94.0 Kidney transplant status; Z98.51 Tubal ligation status; Z98.891 History of uterine scar from previous surgery; Z98.890 Other specified postprocedural states; Z83.79 Family history of other diseases of the digestive system; Z83.3 Family history of diabetes mellitus; Z82.49 Family history of ischemic heart disease and other diseases of the circulatory system; Z79.899 Other long term (current) drug therapy

== ENCOUNTER 2017-02-21 11:47 | Day surgery (SDC) | payer OTHER ==
[2017-02-14 15:37] VITALS: BMI 31.0
[~2017-02-21] VITALS: Ht 167.6 cm; Wt 87.0 kg
--- NOTE | 2017-02-21 09:30 | History and Physical ---
History & Physical Date of Service Feb 21, 2017. History & Physical Chief Complaint: End stage renal disease History of Present Illness The patient is a 29 year old female with hx of IDDM and renal failure and renal transplant, with a permcath in place. She has a failed fistula. She had a new fistula created and is now admitted for insertion of peritoneal dialysis catheter. Denies GARNETT, fever, chills, chest pain, SOB, abd pain, N/V, rest pain, claudication, other complaints. Allergies Cefaclor (Verified Allergy, Unknown, Rash, 05/18/15) Reported by PT. Surgical / Medical History Hx Cardiac Surgery: No Hx Abdominal Surgery: No Hx Cancer Surgery: No Hx Thoracic Surgery: No Hx Orthopedic: Yes Hx Urinary Tract Surgery: No HX Other Surgery: Yes Past Medical/Surgical History: Diabetes, Kidney Disease Family History Heart disease Hypertension Social History Smoking Status: Former Smoker Hx Tobacco Use In Past Year?: No Hx Alcohol Use - Type & Amnt: Yes (VODKA 1GLASS EVERY SO OFTEN) Hx Substance Use -Type & Amnt: No Review of Systems Constitutional: No chills, No fever, No malaise Skin: No change in color Eyes: No visual changes ENMT: No sore throat Respiratory: No BADILLO, No cough, No hemoptysis, No short of breath Cardiovascular: No chest pain, No edema, No intermittent claudication, No palpitations, No syncope Gastrointestinal: No abdominal pain, No nausea Genitourinary - Female: + dysuria, + hematuria Neurologic: No dizziness, No lethargy, No numbness, No tingling Physical Exam: Constitutional: General Apperance: well-nourished, well-developed, obese (morbidly) Level of Distress: NAD Ambulation: ambulating normally Psychiatric: Mental Status: active & alert, normal mood, normal affect Orientation: oriented except where noted, to time, to place, to person Memory: recent memory normal, remote memory normal Head: normocephalic, atraumatic Eyes: EOM: EOMI ENMT: normal ENT inspection, hearing grossly normal Neck: supple, trachea midline Lungs: Respiratory effort: no dyspnea Auscultation: breath sounds normal, no wheezing, no rales/crackles, no rhonchi Cardiovascular: Apical Impulse: not displaced Heart Auscultation: RRR, no murmurs, no rubs, no gallops Peripheral Pulses: Pulses: full and equal, in all extremities except if noted Bruits: none appreciated Carotid Pulse: normal on the left, normal on the right Brachial Pulses: normal on the left, normal on the right Radial Pulse: normal on the left, normal on the right, pertinent finding ( AVF with good thrill Femoral Pulse: normal on the left, normal on the right Posterior Tibialis Pulse: normal on the left, normal on the right Dorsalis Pedis Pulse: normal on the left, normal on the right Abdomen: Bowel Sounds: normal Inspection & Palpation: soft, non-distended, no tenderness, guarding & rebound. Small umbilical hernia present Musculoskeletal: normal strength (5/5 throughout), normal tone Extremities: Upper Right: no cyanosis, no edema, no varicosities Upper Left: no cyanosis, no edema, no varicosities Lower Right: no cyanosis, no edema, no varicosities Lower Left: no cyanosis, no edema, no varicosities Neurologic: Cranial Nerves: grossly intact Sensation: grossly intact ASSESSMENT and PLAN: Imp: End stage renal disease Plan: Patient admitted for insertion of CAPD catheter and repair of small umbilical hernia. I have discussed the risks options and benefits of the procedure with the patient. The patient understands the risks options and benefits and agrees to the procedure.
[~2017-02-21 11:47] MED LIST changes: +CLINDAMYCIN 600 MG/54 ML D5W IV SCH; +OXYC-57 PO; +SODIUM CHLORIDE 0.9% 1000ML 1,000 ML IV SCH
[2017-02-21 12:20] VITALS: BP 185/95; PULSE 72; TEMP 36.9; O2SAT 95; Ht 167.6 cm; Wt 87.0 kg
[2017-02-21] MEDS ORDERED: LIDOCAINE HCL 1% 20 ML VIAL ONE (12:31)
[2017-02-21] MEDS ORDERED: BUPIVACAINE/EPINEPHRINE 0.5% MPF 1:200,000 10 ML VIAL ONE (12:31)
[2017-02-21] MEDS ORDERED: HEPARIN SOD (PORCINE) 5000 UNIT/ML 1 ML VIAL ONE (12:35)
[2017-02-21] MEDS ORDERED: HEPARIN SOD (PORCINE) 1000 UNIT/ML 10 ML VIAL ONE (12:36)
[2017-02-21] MEDS ORDERED: MIDAZOLAM HCL 1 MG/ML 2ML VIAL ONE (13:12)
[2017-02-21] MEDS ORDERED: LIDOCAINE HCL 2% 2 ML VIAL (20MG/ML) ONE (13:12)
[2017-02-21] MEDS ORDERED: PROPOFOL IV EMULSION 10 MG/ML 20 ML VIAL IV ONE (13:12)
[2017-02-21] MEDS ORDERED: FENTANYL CITRATE INJ 50 MCG/1 ML 2 ML VIAL ONE ×2 (13:12→14:25)
[2017-02-21] MEDS ORDERED: SODIUM BICARB 8.4% INJ 50 MEQ/50 ML SYR IV ONE (13:16)
[2017-02-21 13:26] LABS: BLOOD UREA NITROGEN 32 mg/dl (7-18); BUN/CREATININE RATIO 4.7 (10-20); CALCIUM 9.3 mg/dl (8.5-10.1); CARBON DIOXIDE 29 mmol/L (21-32); CHLORIDE 103 mmol/L (98-107); GLUCOSE 79 mg/dl (70-99); SODIUM 139 mmol/L (136-145)
[2017-02-21] MEDS ORDERED: ONDANSETRON INJ 2 MG/ML 2 ML VIAL IV PRN (13:45)
[2017-02-21] MEDS ORDERED: PROMETHAZINE HCL INJ 6.25 MG in SODIUM CHLORIDE 0.9% 50ML 50 ML IV PRN (13:45)
[2017-02-21] MEDS ORDERED: ATROPINE SULFATE 0.1 MG/ML 5ML SYR IV PRN (13:45)
[2017-02-21] MEDS ORDERED: EpHEDrine SULFATE INJ 50 MG/ML AMP IV PRN (13:45)
[2017-02-21] MEDS ORDERED: ONDANSETRON INJ 2 MG/ML 2 ML VIAL ONE (14:15)
[2017-02-21] MEDS ORDERED: DEXAMETHASONE SOD INJ 4 MG/ML VIAL ONE (14:15)
--- NOTE | 2017-02-21 15:25 | [facility] Operative Report ---
Operative Report Operative Date Feb 21, 2017. Pre-Operative Diagnosis End stage renal disease Post-Operative Diagnosis End stage renal disease Procedure(s) Performed Placement of CAPD catheter Surgeon Dr. Michael Claudio Finance Business Partner Surgeon(s) Dr. Rosalind Morgan Estimated Blood Loss 3 cc Findings Good flow in PD catheter following placement Specimens none per surgeon Drains CAPD catheter Anesthesia General Complication(s) None Disposition Recovery Room / PACU Indications Ms. Alexandra Arguello is a 29 year old female with hx of IDDM and renal failure status-post renal transplant, with a permcath in place. She has a failed fistula. She had a new fistula created and is now admitted for insertion of peritoneal dialysis catheter and possible repair of a small umbilical hernia. The risks benefits and alternatives are discussed with the patient she consented to the procedure. Description of Procedure The patient was taken to the operating room and placed in the supine position. General anesthesia was induced by our anesthesia colleagues. Her abdomen was prepped and draped in the usual sterile fashion. A 5 cm longitudinal incision was made in the midline just below the umbilicus. Subcutaneous tissues were divided with electrocautery. The incision was extended just to the right of the umbilicus. The fascia was identified. It was incised in the peritoneum was entered. There appeared to be a good space for the dialysis catheter. A peritoneal dialysis catheter was brought into the sterile field. This is placed into the peritoneal space. A Vicryl suture was used to create a pursestring within the peritoneum surrounding the catheter. A 2-0 Prolene suture was used to create a pursestring within the fascia surrounding the cuff of the catheter. The catheter was tunneled through the subcutaneous adipose tissue and out the left side of the abdomen. The titanium catheter tip was applied to the end of the catheter. The catheter easily flushed and aspirated. It was connected to a 1 L bag of saline and had good flow and emptied easily. Subcutaneous tissues of the umbilical incision were reapproximated with 3-0 Vicryl in a running fashion. The skin was reapproximated with 4-0 Vicryl and a running subcuticular fashion. Dermabond skin glue supplied overlying the skin incision. A sterile dressing was applied to the catheter and infraumbilical incision. The patient was awakened from anesthesia and transferred to the PACU in stable condition. She tolerated the procedure well and there were no immediate complications. Dr. Michael Claudio was present for the entire procedure. I attest to the content of the Intraoperative Record and any orders documented therein. Any exceptions are noted below.
[2017-02-21] MEDS ORDERED: OXYC-57 PO (15:28)
--- NOTE | 2017-02-21 15:28 | [facility] Post Operative Brief Note ---
Immediate Operative Summary Operative Date Feb 21, 2017. Pre-Operative Diagnosis End stage renal disease Post-Operative Diagnosis End stage renal disease Procedure(s) Performed Insertion of Chronic Ambulatory Peritoneal Dialysis Catheter Surgeon Dr. Michael Claudio Planning Coordinator Surgeon(s) Dr. Rosalind Morgan Estimated Blood Loss 3 cc Findings good inflow and outflow Specimens none per surgeon Anesthesia Gen Complication(s) None Disposition Recovery Room / PACU
[2017-02-21] MEDS: FENTANYL CITRATE INJ 50 MCG/1 ML 2 ML VIAL IV PRN ×4 (15:30→16:03)
--- NOTE | 2017-02-21 15:32 | Discharge Instructions ---
Discharge Instructions Date of Service Feb 21, 2017. Visit Reason for Visit: End Stage Renal Disease Discharge Discharge Diagnosis / Problem: End stage renal disease Discharge Goals Goal(s): Therapeutic intervention Activity Recommendations Activity Limitations: per Instructions/Follow-up section Lifting Limitations: no more than 10 pounds Exercise/Sports Limitations: rest today Shower/Bathe: keep incision dry Anesthesia . Post Anesthesia Instructions: If you have had General Anesthesia or IV Sedation: * Do not drive today. * Resume driving when surgeon permits. * Do not make important decisions or sign legal documents today. * Call surgeon for: 1. Temperature elevations greater than 101 degrees F. 2. Uncontrollable pain. 3. Excessive bleeding. 4. Persistent nausea and vomiting. 5. Medication intolerance (nausea, vomiting or rash). * For nausea and vomiting use only clear liquids such as: tea, soda, bouillon until nausea subsides, then gradually increase diet as tolerated. * If you have any concerns or questions, call your surgeon's office. If physician is unavailable and it is an emergency, call 911 or go to the nearest emergency room. . Instructions / Follow-Up Instructions / Follow-Up Call [phone] to schedule a follow up appointment if one not already scheduled. Schedule an appointment with peritoneal dialysis nurses for dressing check ACTIVITY RECOMMENDATIONS: See Above SPECIAL CARE INSTRUCTIONS: Call your doctor if: * Temperature above 101 degrees * Pain not relieved by pain medicine ordered * There is increased drainage or redness from any incision * You have any unanswered questions or concerns. Diet Recommendations Recommended Home Diet: resume previous diet Procedures Procedures Performed: Insertion of Chronic Ambulatory Peritoneal Dialysis Catheter Pending Studies Studies pending at discharge: no Medical Emergencies . Who to Call and When: Medical Emergencies: If at any time you feel your situation is an emergency, please call 911 immediately. . Non-Emergent Contact Non-Emergency issues call your: Surgeon . . "Provider Documentation" section prepared by Michael Claudio. .
[2017-02-21] MEDS ORDERED: DiphenhydrAMINE HCL 50 MG/ML VIAL ONE (15:52)
[2017-02-21] MEDS ORDERED: NURSING VERBAL MED ORDER ONE (16:00)
[2017-02-21 16:25] VITALS: BP 169/95; PULSE 76; TEMP 36.6; O2SAT 92
--- NOTE | 2017-02-21 16:34 | Anesthesiology Progress Note ---
Anesthesia Post Op Note Date & Time Feb 21, 2017 at 16:34 Vital Signs Pain Intensity: 4 Vital Signs Past 12 Hours Date Time Temp Pulse Resp B/P (MAP) Pulse Ox O2 Delivery O2 Flow Rate FiO2 02/21/17 16:22 76 14 02/21/17 16:22 78 14 92 02/21/17 16:21 156/103 02/21/17 16:20 36.1 75 16 156/103 93 Room Air 02/21/17 16:17 75 12 93 02/21/17 16:17 76 12 02/21/17 16:16 170/107 02/21/17 16:12 79 10 90 02/21/17 16:12 79 10 02/21/17 16:11 168/110 02/21/17 16:07 78 14 91 02/21/17 16:07 79 14 02/21/17 16:06 161/108 02/21/17 16:05 79 12 88 02/21/17 16:05 80 12 02/21/17 16:01 176/110 02/21/17 16:00 83 15 93 02/21/17 16:00 83 15 02/21/17 15:58 172/112 02/21/17 15:56 172/111 02/21/17 15:55 81 12 91 02/21/17 15:55 81 12 02/21/17 15:51 158/108 02/21/17 15:50 80 12 93 02/21/17 15:50 80 12 02/21/17 15:47 146/100 02/21/17 15:46 145/103 02/21/17 15:45 78 14 02/21/17 15:45 78 14 100 02/21/17 15:41 158/101 02/21/17 15:40 80 16 02/21/17 15:40 81 16 100 02/21/17 15:36 151/103 02/21/17 15:35 82 16 02/21/17 15:35 82 16 100 02/21/17 15:31 151/99 02/21/17 15:30 82 13 100 02/21/17 15:30 82 13 02/21/17 15:26 149/101 02/21/17 15:25 83 13 100 02/21/17 15:25 84 13 02/21/17 15:21 156/98 02/21/17 15:20 85 17 156/102 98 02/21/17 15:20 85 17 02/21/17 15:20 36.2 85 16 156/98 99 Mask 10 02/21/17 12:20 36.9 72 18 185/95 (125) 95 Room Air Notes Mental Status: alert / awake / arousable, participated in evaluation Pt Amnestic to Procedure: Yes Nausea / Vomiting: adequately controlled Pain: adequately controlled Airway Patency, RR, SpO2: stable & adequate BP & HR: stable & adequate Hydration State: stable & adequate Anesthetic Complications: no major complications apparent
[2017-02-21 16:55] VITALS: BP 175/90; PULSE 71; TEMP 36.8; O2SAT 98
[2017-02-21 17:13] VITALS: BP 167/94; PULSE 74; TEMP 36.7; O2SAT 97
[2017-02-28] MEDS ORDERED: AMLO-114 PO (08:43)
[2017-03-06] MEDS ORDERED: CARV3.122 PO (10:28)
[2017-03-08] MEDS ORDERED: ZFRODT4HP PO (15:53)
[2017-03-20] MEDS ORDERED: TOBR0.3S4 OPL (14:35)
[2017-03-20] MEDS ORDERED: DOXY100T PO (14:35)
[2017-04-24] MEDS ORDERED: CMD/25 PO (12:00)
[2017-04-26] MEDS ORDERED: CMD3 PO (16:37)
[2017-04-26] MEDS ORDERED: LISI20TA3 PO (16:37)
[2017-05-15] MEDS ORDERED: VNTHFA/IN INH (12:28)
[2017-05-15] MEDS ORDERED: LISI-725 PO (13:43)
[2017-05-15] MEDS ORDERED: CALC500C3 PO (13:50)
[2017-05-15] MEDS ORDERED: CRG125 PO (15:17)
[2017-05-15] MEDS ORDERED: NRV/5 PO (15:17)
[2017-05-15] MEDS ORDERED: BENZ100C7 PO (15:22)
[2017-05-15] MEDS ORDERED: FLUT0.15 NAE (15:33)
[2017-05-15] MEDS ORDERED: CALC0.5C17 PO (18:14)
[2017-05-15] MEDS ORDERED: MIRT30TA3 PO (19:24)
[2017-05-15] MEDS ORDERED: CALC667C4 PO ×2 (19:56→21:12)
[2017-05-15] MEDS ORDERED: TRAZ50TA35 PO (19:56)
[2017-05-15] MEDS ORDERED: LXP/20 PO (21:08)
[2017-05-15] MEDS ORDERED: FAMO40TA6 PO (23:12)
[2017-05-17] MEDS ORDERED: CRG25 PO (14:53)
[2017-05-21] MEDS ORDERED: APR25 PO (00:24)
[2017-05-21] MEDS ORDERED: APR50 PO (15:28)
[2017-05-21] MEDS ORDERED: ATV1 PO (15:28)
[2017-05-21] MEDS ORDERED: ativan PO (16:06)
== END 2017-02-21 17:15 | disposition home or self-care (01) ==
LOC: C.ACU 11:47
PROVIDERS: ATTEND Surgery Vascular Surgery
DX: E11.22 Type 2 diabetes mellitus with diabetic chronic kidney disease (principal); N18.6 End stage renal disease; Z99.2 Dependence on renal dialysis; Z87.891 Personal history of nicotine dependence

== ENCOUNTER 2017-02-25 14:04 | Observation (INO) | payer OTHER ==
[~2017-02-25] VITALS: Ht 167.6 cm; Wt 83.2 kg
[~2017-02-25 14:04] MED LIST changes: -CLINDAMYCIN 600 MG/54 ML D5W IV SCH; -SODIUM CHLORIDE 0.9% 1000ML 1,000 ML IV SCH
--- NOTE | 2017-02-25 14:42 | DIAGNOSTIC IMAGING REPORT ---
CHEST ONE VIEW PORTABLE CLINICAL HISTORY: Atypical chest pain COMPARISON STUDY: 02/15/2017 FINDINGS: The cardiac silhouette is enlarged. There is slight elevation of the interstitium. There is no focal pulmonary consolidation. There are no pleural effusions.[ IMPRESSION: 1. Mild cardiomegaly 2. Slight prominence of the interstitium, a finding which could be related to technical factors 3. No evidence of focal pulmonary consolidation Electronically signed by: Win Foster M.D. 02/25/2017 2:40 PM Dictated Date/Time: 02/25/2017 2:39 PM
[2017-02-25 17:02] LABS: HEMATOCRIT 27.4 % (37-47); MEAN CELL VOLUME 93.8 fL (80-100); MEAN CORPUSCULAR HEMOGLOBIN 31.2 pg (25-34); MEAN CORPUSCULAR HGB CONC 33.2 g/dl (32-36); MEAN PLATELET VOLUME 9.2 fL (7.4-10.4); PLATELET COUNT 139 K/uL (130-400); RED BLOOD COUNT 2.92 M/uL (4.2-5.4); WHITE BLOOD COUNT 4.43 K/uL (4.8-10.8)
[2017-02-25 17:14] LABS: INR 1.1 (0.9-1.1); PARTIAL THROMBOPLASTIN RATIO 1.1; PROTHROMBIN TIME (PATIENT) 11.5 SECONDS (9.0-12.0)
--- NOTE | 2017-02-25 17:45 | EMERGENCY ROOM VISIT NOTE ---
History Report prepared by Katia: Trenton Acuña Under the Supervision of: Dr. Asiya Sun M.D. First contact with patient: 16:00 Chief Complaint: CHEST PAIN Stated Complaint: CHEST PAIN Nursing Triage Summary: While at dialysis the patient developed non-radiating mid sternal chest pain that she rated a 10 (0-10). She received nitro tabs x3. That brought her chest pain down to an 8 (0-10) by the time EMS arrived. The patient received an additional 3 nitro tabs while en route to [facility] along with 324 mg ASA. The patient now rates her pain a 7 (0-10). Pt denies SOB at this time. Pt SAO2 of 91% on room air, patient placed on 2L NC. Dialysis fistula in left arm. Recent sinus infection, recent catheter placement for peritioneal dialysis History of Present Illness The patient is a 31 year old female who presents to the Emergency Room with complaints of constant stabbing chest pain starting earlier today. She currently rates her pain as a 7/10 in severity. The patient states that she has FSGS and was on dialysis today when she started to experience chest pain, nausea , and vomiting. The patient states that her pain was a 10/10 before EMS arrived , which is when her pain reduced to an 8/10 in severity. She reports that she has experienced these symptoms while on dialysis in the past. Per EMS, the patient took three nitroglycerin and then was given another three tabs of nitroglycerin and 324 mg of aspirin PO on her way to the ED. The patient states that she currently has a headache and stabbing chest pain. She reports that she has had headaches before, but admits that this one is different because she cannot alleviate the pain by sleeping like usual. The patient states that she just recently had surgery to get her catheter placed in. She denies any blood thinners, recent travel. SHe denies leg swelling/pain. Pt does not require O2 at home. Source of History: patient Onset: today Position: chest Symptom Intensity: 7/10 Quality: stabbing Timing: constant Modifying Factors (Relieving): other (aspirin, nitroglycerin) Associated Symptoms: + nausea, + vomiting Review of Systems See HPI for pertinent positives & negatives. A total of 10 systems reviewed and were otherwise negative. Past Medical & Surgical Medical Problems: (1) Chest pain (2) CKD (chronic kidney disease) stage V requiring chronic dialysis (3) DM2 (diabetes mellitus, type 2) (4) Focal segmental glomerulosclerosis (5) HTN (hypertension) (6) Hyperkalemia (7) Migraine (8) Renal failure (9) Syncope Surgical Problems: (1) H/O knee surgery (2) H/O tubal ligation (3) H/O: (4) Kidney transplant status, living related donor Social History Problems: (1) Kidney transplanted Family History Crohn's disease FATHER Diabetes mellitus MOTHER Hypertension SISTER Social History Smoking Status: Current Every Day Smoker Alcohol Use: none Drug Use: none Marital Status: in relationship Housing Status: lives with family, lives with significant other Occupation Status: employed Current/Historical Medications Scheduled Calcium Acetate (Phoslo 667 Mg), 2,668 MG PO WITH MEALS Calcium Acetate (Phoslo 667 Mg), 1,334 MG PO WITH SNACKS Calcium Carbonate (Tums), 3 TABS PO HS Carvedilol (Coreg), 3.125 MG PO BID Doxycycline Monohydrate (Monodox), 100 MG PO BID Escitalopram Oxalate (Escitalopram Oxalate), 20 MG PO QAM Famotidine (Pepcid), 40 MG PO QAM Fluticasone Propionate (Nasal) (Flonase Allergy Relief), 2 SPRAY FRED DAILY Lisinopril (Prinivil), 40 MG PO HS Mirtazapine (Remeron), 30 MG PO HS Trazodone Hcl (Trazodone), 50 MG PO HS Scheduled PRN Albuterol Hfa (Ventolin Hfa), 2 PUFFS INH QID PRN for Allergy Symptoms Allergies Coded Allergies: Cefaclor (Verified Allergy, Unknown, Rash, 02/21/17) Reported by PT. Amoxicillin (Verified Adverse Reaction, Unknown, VOMITING, 02/21/17) Clavulanic Acid (Verified Adverse Reaction, Unknown, VOMITING, 02/21/17) Physical Exam Vital Signs Date Time Temp Pulse Resp B/P (MAP) Pulse Ox O2 Delivery O2 Flow Rate FiO2 02/25/17 19:15 75 16 185/123 97 Room Air 02/25/17 18:48 66 02/25/17 18:39 67 12 02/25/17 18:34 66 12 02/25/17 18:31 180/99 7/3/17 18:29 67 13 7/3/17 18:24 65 11 7/3/17 18:20 62 18 189/95 7/3/17 18:19 63 13 189/95 7/3/17 17:54 67 12 99 7/3/17 17:49 67 13 99 7/3/17 17:46 174/114 7/3/17 17:44 68 11 100 7/3/17 17:43 70 18 174/114 100 Room Air 7/3/17 17:39 66 14 100 7/3/17 17:34 69 14 100 7/3/17 17:29 66 12 100 7/3/17 17:24 65 12 100 7/3/17 17:19 65 9 100 7/3/17 17:14 65 10 100 7/3/17 17:09 66 11 100 7/3/17 17:04 66 11 100 7/3/17 16:59 64 7 100 7/3/17 16:54 65 11 100 7/3/17 16:49 65 11 100 7/3/17 16:44 65 10 100 7/3/17 16:39 67 11 100 7/3/17 16:34 66 14 99 7/3/17 16:29 66 11 100 7/3/17 16:24 65 11 99 7/3/17 16:19 71 10 98 7/3/17 16:14 67 11 98 7/3/17 16:13 68 16 151/103 98 Room Air 7/3/17 16:12 151/103 7/3/17 16:09 66 8 99 7/3/17 16:04 69 12 98 7/3/17 15:59 69 12 98 7/3/17 15:54 65 10 98 7/3/17 15:49 66 9 97 7/3/17 15:44 66 10 98 7/3/17 15:39 67 12 98 7/3/17 15:34 68 12 98 7/3/17 15:29 69 10 98 7/3/17 15:24 68 13 98 7/3/17 15:19 68 16 98 7/3/17 15:14 67 12 99 7/3/17 15:09 68 10 99 7/3/17 15:04 66 13 7/3/17 14:59 67 15 99 7/3/17 14:54 68 10 98 7/3/17 14:49 68 11 98 02/25/17 14:44 69 13 99 02/25/17 14:39 69 13 99 02/25/17 14:34 69 14 99 02/25/17 14:29 68 12 99 02/25/17 14:28 98 Nasal Cannula 2.0 02/25/17 14:24 71 12 98 02/25/17 14:19 36.8 71 18 169/97 98 Nasal Cannula 2.0 02/25/17 14:19 98 Nasal Cannula 2.0 02/25/17 14:19 70 12 99 02/25/17 14:19 98 Nasal Cannula 2.0 02/25/17 14:15 75 02/25/17 14:12 169/97 Physical Exam Vital signs reviewed. General: Hypertensive, No meningeal signs, Chronically ill-appearing 31 year old female, in no significant distress. HEENT: No scleral icterus, PERRLA, neck supple. Atraumatic. Cardiovascular: Regular rate and rhythm, no extra sounds. Pulmonary: Clear to auscultation bilaterally, normal work of breathing. Abdomen: Dressing to abdomen from recent surgery. Soft, nontender, nondistended , positive bowel sounds. Musculoskeletal: Atraumatic, no peripheral edema. Neurologic: Patient awake alert and oriented x 3, full strength in all 4 extremities. Cranial nerves 2 through 12 grossly intact. Skin: Warm, dry, no rash Medical Decision & Procedures ER Provider Diagnostic Interpretation: Radiology results as stated below per my review and radiologist interpretation: CHEST ONE VIEW PORTABLE CLINICAL HISTORY: Atypical chest pain COMPARISON STUDY: 02/15/2017 FINDINGS: The cardiac silhouette is enlarged. There is slight elevation of the interstitium. There is no focal pulmonary consolidation. There are no pleural effusions.[ IMPRESSION: 1. Mild cardiomegaly 2. Slight prominence of the interstitium, a finding which could be related to technical factors 3. No evidence of focal pulmonary consolidation Electronically signed by: Win Foster M.D. 02/25/2017 2:40 PM Dictated Date/Time: 02/25/2017 2:[address] OF THE HEAD WITHOUT CONTRAST CLINICAL HISTORY: Headache, vomiting COMPARISON STUDY: Head CT January 01, 2017. CT DOSE: 537.48 mGy.cm TECHNIQUE: Helical axial images of the head were obtained without IV contrast. Automated exposure control was utilized for the study. FINDINGS: No acute intracranial hemorrhage, midline shift or mass effect is present. Ventricular system is normal. Basilar cisterns are patent. There are no extra-axial collections. Rodríguez-white differentiation is maintained. There are no findings to suggest acute dural sinus thrombosis or acute territorial infarct. A left maxillary sinus air-fluid level is noted. There is a tiny air-fluid level within the sphenoid sinuses. There are no calvarial abnormalities. Mastoid air cells are clear. IMPRESSION: 1. No acute intracranial findings. 2. Left maxillary and sphenoid sinus air-fluid levels which could indicate acute sinusitis. Electronically signed by: Sebastian Mcclain M.D. 02/25/2017 6:17 PM Dictated Date/Time: 02/25/2017 6:15 PM Laboratory Results Test 02/25/17 16:30 02/25/17 16:42 Prothrombin Time 11.5 SECONDS (9.0-12.0) Prothromb Time International Ratio 1.1 (0.9-1.1) Activated Partial Thromboplast Time 28.3 SECONDS (21.0-31.0) Partial Thromboplastin Ratio 1.1 Magnesium Level 2.0 mg/dl (1.8-2.4) Total Bilirubin 0.5 mg/dl (0.2-1) Aspartate Amino Transf (AST/SGOT) 13 U/L (15-37) Alanine Aminotransferase (ALT/SGPT) 17 U/L (12-78) Alkaline Phosphatase 89 U/L (45-117) Total Creatine Kinase 22 U/L (26-192) Creatine Kinase MB 0.5 ng/ml (0.5-3.6) Creatine Kinase MB Ratio 2.3 (0-3.0) Total Protein 6.7 gm/dl (6.4-8.2) Albumin 2.9 gm/dl (3.4-5.0) Globulin 3.8 gm/dl (2.5-4.0) Albumin/Globulin Ratio 0.8 (0.9-2) Lipase 74 U/L (73-393) Bedside Troponin I < 0.030 ng/ml (0-0.045) Laboratory results per my review. Medications Administered Medications (Trade) Dose Ordered Sig/Sachin Route Start Time Stop Time Status Last Admin Dose Admin Hydralazine HCl (HydrALAZINE INJ) 10 mg NOW STAT IV. 02/25/17 18:05 02/25/17 18:07 DC 02/25/17 18:19 10 MG Ampicillin Sodium/ Sulbactam Sodium 3000 mg/Sodium Chloride 108 ml @ 200 mls/hr ONE ONCE IV 02/25/17 18:45 02/25/17 19:17 DC 02/25/17 19:22 200 MLS/HR Morphine Sulfate (MoRPHine SULFATE INJ) 4 mg NOW STAT IV 02/25/17 19:14 02/25/17 19:15 DC 02/25/17 19:23 4 MG ECG Indication: chest pain Rate (beats per minute): 68 Rhythm: normal sinus Findings: prolonged QT, no ectopy, other (flattented T wave in inferior and lateral lead, QTC 565) ED Course 1731: Past medical records reviewed. The patient was evaluated in room B06. A complete history and physical examination was performed. 1804: Hydralazine HCl 10 mg IV. 1844: Ampicillin Sodium/ Sulbactam Sodium 2000 mg/Sodium Chloride 108 ml @ 2000 mls/hr Iv. 1913: Morphine Sulfate 4 mg IV. 1929: I discussed the patient's case with Dr. Cunningham, [facility] Hospitalist. He understands the patient's conditions and agrees to accept the patient. The patient will be further evaluated. Medical Decision Differential diagnoses includes acute coronary syndrome, pulmonary embolus, aortic dissection, musculoskeletal pain, pneumonia, pleural effusion, pneumothorax, gastritis, peptic ulcer disease, hypertensive urgency, intracranial hemorrhage, migraine, headache, intracranial mass. Medication Reconciliation: I attest that I have personally reviewed the patient' s current medication list. Blood Pressure Screening: Patient was found to have an elevated blood pressure and was referred to their primary doctor for recheck and further treatment. This pt was evaluated and appeared to be in no distress. IV access was obtained and lab work was drawn. Pt was noted to be hypertensive, she was 1 hour short of a full dialysis treatment. She states she did take her BP meds. Pt was given hydralazine 10mg IV. CT head is neg for IV hemorrhage. CXR is clear of acute abnl. EKG reveals prolonged QT and flattening of T waves. Pt was given # gm IV Unasyn for sinusitis on CT. CAse was d/w hospitalist service for further management. Consults Time Called: 1924 Consulting Physician: Dr. Cunningham, [facility] Hospitalist Returned Call: 1929 I discussed the patient's case with Dr. Cunningham, [facility] Hospitalist. He understands the patient's conditions and agrees to accept the patient. The patient will be further evaluated. Impression Primary Impression: Hypertensive urgency Additional Impressions: Sinusitis Substernal chest pain Scribe Attestation The scribe's documentation has been prepared under my direction and personally reviewed by me in its entirety. I confirm that the note above accurately reflects all work, treatment, procedures, and medical decision making performed by me. Departure Information Dispostion Being Evaluated By Hospitalist (Dr. Cunningham) Referrals Adolph Aldridge M.D. (PCP) Patient Instructions My [facility] Problem Qualifiers
[2017-02-25 17:48] LABS: ALB/GLOB RATIO 0.8 (0.9-2); BUN/CREATININE RATIO 6.2 (10-20); CALCIUM 8.1 mg/dl (8.5-10.1); CKMB/CK RATIO 2.3 (0-3.0); POTASSIUM 3.6 mmol/L (3.5-5.1)
[2017-02-25 17:49] LABS: CREATININE 7.7 mg/dl (0.60-1.20)
[2017-02-25] MEDS ORDERED: HydrALAZINE HCL 20 MG/ML VIAL IV. STA (18:05)
--- NOTE | 2017-02-25 18:18 | DIAGNOSTIC IMAGING REPORT ---
CT OF THE HEAD WITHOUT CONTRAST CLINICAL HISTORY: Headache, vomiting COMPARISON STUDY: Head CT January 01, 2017. CT DOSE: 537.48 mGy.cm TECHNIQUE: Helical axial images of the head were obtained without IV contrast. Automated exposure control was utilized for the study. FINDINGS: No acute intracranial hemorrhage, midline shift or mass effect is present. Ventricular system is normal. Basilar cisterns are patent. There are no extra-axial collections. Rodríguez-white differentiation is maintained. There are no findings to suggest acute dural sinus thrombosis or acute territorial infarct. A left maxillary sinus air-fluid level is noted. There is a tiny air-fluid level within the sphenoid sinuses. There are no calvarial abnormalities. Mastoid air cells are clear. IMPRESSION: 1. No acute intracranial findings. 2. Left maxillary and sphenoid sinus air-fluid levels which could indicate acute sinusitis. Electronically signed by: Sebastian Mcclain M.D. 02/25/2017 6:17 PM Dictated Date/Time: 02/25/2017 6:15 PM
[2017-02-25] MEDS ORDERED: AMPICILLIN/SULBACTAM SOD INJ 3,000 MG in SODIUM CHLORIDE 0.9% 100ML 100 ML IV ONE (18:45)
[2017-02-25] MEDS ORDERED: MoRPHine SULFATE 4 MG/ML 1 ML CARP\\VIAL IV STA (19:14)
[2017-02-25] MEDS ORDERED: IV FLUIDS COMPLETED PRN (20:30)
[2017-02-25] MEDS ORDERED: DEXTROSE 50% 50 ML SYR IV PRN (20:45)
[2017-02-25] MEDS ORDERED: TRAMADOL HCL 50 MG TAB PO PRN (20:45)
[2017-02-25] MEDS ORDERED: GLUCOSE 40% GEL 15 GM TUBE PO PRN (20:45)
[2017-02-25] MEDS ORDERED: GLUCOSE 10 TABS/TUBE PO PRN (20:45)
[2017-02-25] MEDS ORDERED: GLUCAGON FOR INJ 1 MG VIAL SQ PRN (20:45)
[2017-02-25] MEDS ORDERED: NITROGLYCERIN 0.4 MG SL PER TAB CHARGE SL PRN (20:45)
--- NOTE | 2017-02-25 20:51 | History and Physical ---
History & Physical Date & Time of Service: Feb 25, 2017 at 20:51 Chief Complaint: Chest Pain Primary Care Physician: Adolph Aldridge M.D. History of Present Illness Source: patient, clinic records, hospital records Recent confinement last month for chest pain. PE workup unremarkable. TTE showed: n The left ventricle is moderately dilated. n There is borderline concentric left ventricular hypertrophy. n Left ventricular systolic function is mild to moderately reduced. n Ejection Fraction = 45-50%. n There is moderate to severe septal hypokinesis. n The right ventricle is normal in size and function. n The right ventricular systolic function is normal. Cardiology subsequently transferred to [facility] for diagnostic cath.. Cardiac cath showed clean coronaries. Patient was at dialysis today when she developed substernal pain achy pleuritic. No shortness of breath. Patient also had nausea, emesis symptoms. BP unknown at time of episode. At the ER, some relief with nitroglycerin. Past Medical/Surgical History Medical Problems: (1) CKD (chronic kidney disease) stage V requiring chronic dialysis Status: Chronic (2) DM2 (diabetes mellitus, type 2) Status: Chronic (3) Focal segmental glomerulosclerosis Status: Chronic Failed kidney transplant (4) HTN (hypertension) Status: Chronic (5) Migraine Status: Chronic Ongoing tobacco abuse Chronic pancytopenia . Surgical Problems: (1) H/O knee surgery Status: Chronic (2) H/O tubal ligation Status: Chronic (3) H/O: Status: Chronic (4) Kidney transplant status, living related donor Status: Chronic Vascular procedures Urologic procedures Family History Crohn's disease FATHER Diabetes mellitus MOTHER Hypertension SISTER Social History Smoking Status: Current Every Day Smoker Drug Use: none Marital Status: in relationship Housing status: lives with significant other Occupational Status: employed, other ([employer] employee) Immunizations History of Influenza Vaccine: Yes History of Tetanus Vaccine?: Yes History of Pneumococcal: Yes History of Hepatitis B Vaccine: Unknown Multi-Drug Resistant Organisms History of MDRO: No Allergies Coded Allergies: Cefaclor (Verified Allergy, Unknown, Rash, 02/21/17) Reported by PT. Amoxicillin (Verified Adverse Reaction, Unknown, VOMITING, 02/21/17) Clavulanic Acid (Verified Adverse Reaction, Unknown, VOMITING, 02/21/17) Home Medications Scheduled Calcium Acetate (Phoslo 667 Mg), 2,668 MG PO WITH MEALS Calcium Acetate (Phoslo 667 Mg), 1,334 MG PO WITH SNACKS Calcium Carbonate (Tums), 3 TABS PO HS Carvedilol (Coreg), 3.125 MG PO BID Doxycycline Monohydrate (Monodox), 100 MG PO BID Escitalopram Oxalate (Escitalopram Oxalate), 20 MG PO QAM Famotidine (Pepcid), 40 MG PO QAM Fluticasone Propionate (Nasal) (Flonase Allergy Relief), 2 SPRAY FRED DAILY Lisinopril (Prinivil), 40 MG PO HS Mirtazapine (Remeron), 30 MG PO HS Trazodone Hcl (Trazodone), 50 MG PO HS Scheduled PRN Albuterol Hfa (Ventolin Hfa), 2 PUFFS INH QID PRN for Allergy Symptoms Review of Systems As per history of present illness, all other ROS negative Physical Exam Vital Signs Date Time Temp Pulse Resp B/P (MAP) Pulse Ox O2 Delivery O2 Flow Rate FiO2 02/25/17 18:48 66 02/25/17 18:39 67 12 02/25/17 18:34 66 12 02/25/17 18:31 180/99 02/25/17 18:29 67 13 02/25/17 18:24 65 11 02/25/17 18:20 62 18 189/95 02/25/17 18:19 63 13 189/95 02/25/17 17:54 67 12 99 02/25/17 17:49 67 13 99 02/25/17 17:46 174/114 02/25/17 17:44 68 11 100 02/25/17 17:43 70 18 174/114 100 Room Air 02/25/17 17:39 66 14 100 02/25/17 17:34 69 14 100 02/25/17 17:29 66 12 100 02/25/17 17:24 65 12 100 02/25/17 17:19 65 9 100 02/25/17 17:14 65 10 100 02/25/17 17:09 66 11 100 02/25/17 17:04 66 11 100 02/25/17 16:59 64 7 100 02/25/17 16:54 65 11 100 02/25/17 16:49 65 11 100 02/25/17 16:44 65 10 100 02/25/17 16:39 67 11 100 02/25/17 16:34 66 14 99 02/25/17 16:29 66 11 100 02/25/17 16:24 65 11 99 02/25/17 16:19 71 10 98 02/25/17 16:14 67 11 98 02/25/17 16:13 68 16 151/103 98 Room Air 02/25/17 16:12 151/103 02/25/17 16:09 66 8 99 02/25/17 16:04 69 12 98 02/25/17 15:59 69 12 98 02/25/17 15:54 65 10 98 02/25/17 15:49 66 9 97 02/25/17 15:44 66 10 98 02/25/17 15:39 67 12 98 02/25/17 15:34 68 12 98 02/25/17 15:29 69 10 98 02/25/17 15:24 68 13 98 02/25/17 15:19 68 16 98 02/25/17 15:14 67 12 99 02/25/17 15:09 68 10 99 02/25/17 15:04 66 13 02/25/17 14:59 67 15 99 02/25/17 14:54 68 10 98 02/25/17 14:49 68 11 98 02/25/17 14:44 69 13 99 02/25/17 14:39 69 13 99 02/25/17 14:34 69 14 99 02/25/17 14:29 68 12 99 02/25/17 14:28 98 Nasal Cannula 2.0 02/25/17 14:24 71 12 98 02/25/17 14:19 36.8 71 18 169/97 98 Nasal Cannula 2.0 02/25/17 14:19 98 Nasal Cannula 2.0 02/25/17 14:19 70 12 99 02/25/17 14:19 98 Nasal Cannula 2.0 02/25/17 14:15 75 02/25/17 14:12 169/97 General Appearance: + obese, + pertinent finding (comfortable, watching TV) Head: normocephalic ENT: + pertinent finding (pale palpebral conjunctivae) Neck: + pertinent finding (short) Respiratory/Chest: + decreased breath sounds, + pertinent finding (anterior chest wall tenderness) Cardiovascular: regular rate, rhythm Abdomen/GI: soft Extremities/Musculoskelatal: non-tender Neurologic/Psych: alert, oriented x 3 Skin: + pallor Diagnostics Laboratory Results Results Past 24 Hours Test 02/25/17 16:30 02/25/17 16:42 Range/Units White Blood Count 4.43 4.8-10.8 K/uL Red Blood Count 2.92 4.2-5.4 M/uL Hemoglobin 9.1 12.0-16.0 g/dL Hematocrit 27.4 37-47 % Mean Corpuscular Volume 93.8 80-100 fL Mean Corpuscular Hemoglobin 31.2 25-34 pg Mean Corpuscular Hemoglobin Concent 33.2 32-36 g/dl RDW Standard Deviation 54.6 36.4-46.3 fL RDW Coefficient of Variation 15.9 11.5-14.5 % Platelet Count 139 130-400 K/uL Mean Platelet Volume 9.2 7.4-10.4 fL Prothrombin Time 11.5 9.0-12.0 SECONDS Prothromb Time International Ratio 1.1 0.9-1.1 Activated Partial Thromboplast Time 28.3 21.0-31.0 SECONDS Partial Thromboplastin Ratio 1.1 Sodium Level 138 136-145 mmol/L Potassium Level 3.6 3.5-5.1 mmol/L Chloride Level 96 98-107 mmol/L Carbon Dioxide Level 34 21-32 mmol/L Anion Gap 8.0 3-11 mmol/L Blood Urea Nitrogen 49 7-18 mg/dl Creatinine 7.70 0.60-1.20 mg/dl Est Creatinine Clear Calc Drug Dose 11.9 ml/min Estimated GFR () 7.4 Estimated GFR (Non- 6.4 BUN/Creatinine Ratio 6.2 10-20 Random Glucose 118 70-99 mg/dl Calcium Level 8.1 8.5-10.1 mg/dl Magnesium Level 2.0 1.8-2.4 mg/dl Total Bilirubin 0.5 0.2-1 mg/dl Aspartate Amino Transf (AST/SGOT) 13 15-37 U/L Alanine Aminotransferase (ALT/SGPT) 17 12-78 U/L Alkaline Phosphatase 89 45-117 U/L Total Creatine Kinase 22 26-192 U/L Creatine Kinase MB 0.5 0.5-3.6 ng/ml Creatine Kinase MB Ratio 2.3 0-3.0 Total Protein 6.7 6.4-8.2 gm/dl Albumin 2.9 3.4-5.0 gm/dl Globulin 3.8 2.5-4.0 gm/dl Albumin/Globulin Ratio 0.8 0.9-2 Lipase 74 73-393 U/L Bedside Troponin I < 0.030 0-0.045 ng/ml Diagnostic Radiology Cardiomegaly EKG As per my read normal sinus rhythm, LVH, ST depression in lateral leads Impression Assessment and Plan AP Chest pain secondary to hypertensive urgency Questionable compliance definite musculoskeletal component with reproducibility Chronic systolic heart failure secondary to nonischemic cardiomyopathy (EF 45%) Clean coronaries on [place] [facility] [place] euvolemic End-stage renal disease on hemodialysis history FSGS status post failed kidney transplant (Peritoneal dialysis to be initiated in 2 weeks as per patient..) DM2 diet controlled well controlled as of recent A1c Ongoing tobacco abuse Chronic pancytopenia History of recent sinusitis improved on outpatient doxycycline Rx Observation PCU Analgesia, judicious narcotic use Facilitate home BP meds, may need to augment regimen Nephrology consult for dialysis management if patient still still admitted by Saturday ([facility] has hemodialysis MWF) ISS BG goal 140-180 Nicotine patch DVT prophylaxis SCDs RE thrombocytopenia Full code VTE Prophylaxis VTE Risk Assessment Done? Y/N: Yes Risk Level: Moderate
[2017-02-25] MEDS ORDERED: CARVEDILOL 3.125 MG TAB PO SCH (21:00)
[2017-02-25] MEDS ORDERED: TRAMADOL HCL 50 MG TAB PO SCH (21:00)
[2017-02-25] MEDS ORDERED: CALCIUM ACETATE 667MG GELCAP PO PRN (21:15)
[2017-02-25] MEDS: ONDANSETRON INJ 2 MG/ML 2 ML VIAL IV PRN (21:39)
[2017-02-25 22:05] VITALS: BP 180/110; PULSE 66; TEMP 36.7; O2SAT 98; Ht 167.6 cm; Wt 83.2 kg
[2017-02-25] MEDS: CALCIUM CARBONATE 500 MG CHEWABLE PO SCH (22:36)
[2017-02-25] MEDS: MIRTAZAPINE TAB 15 MG TAB PO SCH (22:36)
[2017-02-25] MEDS: LISINOPRIL 40 MG TAB PO SCH (22:36)
[2017-02-25] MEDS: TRAZODONE HCL 50 MG TAB PO SCH (22:36)
[2017-02-25] MEDS: ACETAMINOPHEN 325 MG TAB PO PRN (22:40)
[2017-02-26] VITALS (9 sets, daily range): BP systolic 142–183; BP diastolic 64–101; PULSE 65–70; TEMP 36.7–37; O2SAT 92–96
[2017-02-26] MEDS ORDERED: CARVEDILOL 3.125 MG TAB PO ONE (04:15)
[2017-02-26] MEDS: ACETAMINOPHEN 325 MG TAB PO PRN ×3 (05:16→19:11)
[2017-02-26 05:56] LABS: BASO % 0.2 %; BASO ABS # 0.01 K/uL (0-0.2); COMPLETE YES; EOS % 3.7 %; HEMATOCRIT 30.8 % (37-47); IG% 0.2 %; LYMPH % 18.1 %; LYMPH ABS # 0.78 K/uL (1.2-3.4); MEAN CELL VOLUME 95.4 fL (80-100); MEAN CORPUSCULAR HEMOGLOBIN 30.7 pg (25-34); MEAN CORPUSCULAR HGB CONC 32.1 g/dl (32-36); MONO % 9.5 %; NEUT % 68.3 %; PLATELET COUNT 140 K/uL (130-400); RED BLOOD COUNT 3.23 M/uL (4.2-5.4)
[2017-02-26 06:49] LABS: BUN/CREATININE RATIO 5.9 (10-20); CALCIUM 8.5 mg/dl (8.5-10.1); CREATININE 9.7 mg/dl (0.60-1.20); POTASSIUM 4.2 mmol/L (3.5-5.1)
[2017-02-26 06:55] LABS: PREG INTERNAL NEGATIVE QC NEG CLEAR BACKGROUND; PREG INTERNAL POSITIVE QC POS CONTROL LINE
[2017-02-26] MEDS: INSULIN ASPART 100 UNITS/ML 3 ML PEN SC SCH ×4 (07:00→21:00)
[2017-02-26] MEDS: CALCIUM ACETATE 667MG GELCAP PO SCH ×3 (08:25→16:55)
[2017-02-26] MEDS: FLUTICASONE PROPIONATE NA SPR 16 GM BTL NAE SCH (08:25)
[2017-02-26] MEDS: NICOTINE 7 MG/24 HR TDSY TD SCH (08:25)
[2017-02-26] MEDS: FAMOTIDINE 20 MG TAB PO SCH (08:26)
[2017-02-26] MEDS: ESCITALOPRAM OXALATE 20 MG TAB PO SCH (08:26)
[2017-02-26] MEDS: TRAMADOL HCL 50 MG TAB PO PRN ×2 (08:26→17:07)
[2017-02-26] MEDS ORDERED: CARVEDILOL 3.125 MG TAB PO SCH (09:00)
--- NOTE | 2017-02-26 09:59 | Progress Note ---
Internal Med Progress Note Date of Service: Feb 26, 2017. Provider Documentation: SUBJECTIVE: Patient is c/o chest pain - sharp. No associated SOB, cough, fever, chills, nausea, vomiting, sweating, palpitations, diaphoresis. Tele- no events OBJECTIVE: Vital Signs-as noted below Exam: GENERAL: Noted to be obese, AAOX3, no distress NECK: Short neck. LUNGS: Decreased breath sounds. No anterior chest wall tenderness. HEART: Regular rate and rhythm. EXTREMITIES: No edema, no erythema or tenderness NEUROLOGIC: No gross focality. Lab data as noted below. ASSESSMENT & PLAN: ASSESSMENT & PLAN: CHEST PAIN, ATYPICAL, RECURRENT : Patient presented with atypical chest pain -right sided while she was in dialysis yesterday. No associated symptoms Was in hospital 01/25/17 for similar symptoms, had multiple admissions in past for this. Last admission was transferred to [facility] for EKG changes, Cardiac cath was done on 01/25- Normal coronaries -Likely muscular, wants me to give her narcotics. Unlikely cardiac, no signs of pneumonia -EKG- no acute ischemic changes, Troponin x 1 - 0.048 (chronic elevation likely in setting of ESRD ) -Will avoid narcotics for pain -Trend troponin. No further cardiac intervention needed with recent 01/25/17 cath = negative HTN- Uncontrolled Improved -On lisinopril, coreg 3.125 mg BID -Monitor ESRD ON HD -On dialysis. Known to be non compliant in past -Nephrology consulted CHRONIC ANEMIA SECONDARY TO ESRD -Hb stable with no overt bleeding DM2 -Diet controlled, well controlled TOBACCO ABUSE DISORDER Patient was counseled to stop smoking. DVT prophylaxis SCDS/TEDS FULL CODE DISPOSITION Awaiting troponin trend, BP monitoring Vital Signs: Date Time Temp Pulse Resp B/P (MAP) Pulse Ox O2 Delivery O2 Flow Rate FiO2 02/26/17 08:30 Room Air 02/26/17 07:40 36.7 65 18 142/86 (104) 94 Room Air 02/26/17 04:00 92 Room Air 02/26/17 04:00 183/64 (103) 02/26/17 04:00 36.7 65 18 170/101 (124) 92 Room Air 02/26/17 00:14 36.9 70 17 158/98 (118) 92 Room Air 02/26/17 00:00 92 Room Air 7/3/17 22:05 36.7 66 18 180/110 98 Room Air 73/17 21:54 70 18 196/108 97 7/3/17 21:39 70 18 196/108 97 Room Air 73/17 19:15 75 16 185/123 97 Room Air 7/3/17 18:48 66 7/3/17 18:39 67 12 7/3/17 18:34 66 12 7/3/17 18:31 180/99 7/3/17 18:29 67 13 7/3/17 18:24 65 11 7/3/17 18:20 62 18 189/95 7/3/17 18:19 63 13 189/95 7/3/17 17:54 67 12 99 7/3/17 17:49 67 13 99 7/3/17 17:46 174/114 7/3/17 17:44 68 11 100 7/3/17 17:43 70 18 174/114 100 Room Air 73/17 17:39 66 14 100 7/3/17 17:34 69 14 100 7/3/17 17:29 66 12 100 7/3/17 17:24 65 12 100 7/3/17 17:19 65 9 100 7/3/17 17:14 65 10 100 7/3/17 17:09 66 11 100 7/3/17 17:04 66 11 100 7/3/17 16:59 64 7 100 7/3/17 16:54 65 11 100 7/3/17 16:49 65 11 100 7/3/17 16:44 65 10 100 7/3/17 16:39 67 11 100 7/3/17 16:34 66 14 99 7/3/17 16:29 66 11 100 7/3/17 16:24 65 11 99 7/3/17 16:19 71 10 98 7/3/17 16:14 67 11 98 7/3/17 16:13 68 16 151/103 98 Room Air 7/3/17 16:12 151/103 7/3/17 16:09 66 8 99 7/3/17 16:04 69 12 98 7/3/17 15:59 69 12 98 7/3/17 15:54 65 10 98 7/3/17 15:49 66 9 97 7/3/17 15:44 66 10 98 7/3/17 15:39 67 12 98 02/25/17 15:34 68 12 98 02/25/17 15:29 69 10 98 02/25/17 15:24 68 13 98 02/25/17 15:19 68 16 98 02/25/17 15:14 67 12 99 02/25/17 15:09 68 10 99 02/25/17 15:04 66 13 02/25/17 14:59 67 15 99 02/25/17 14:54 68 10 98 02/25/17 14:49 68 11 98 02/25/17 14:44 69 13 99 02/25/17 14:39 69 13 99 02/25/17 14:34 69 14 99 02/25/17 14:29 68 12 99 02/25/17 14:28 98 Nasal Cannula 2.0 02/25/17 14:24 71 12 98 02/25/17 14:19 36.8 71 18 169/97 98 Nasal Cannula 2.0 02/25/17 14:19 98 Nasal Cannula 2.0 02/25/17 14:19 70 12 99 02/25/17 14:19 98 Nasal Cannula 2.0 02/25/17 14:15 75 02/25/17 14:12 169/97 Lab Results: Results Past 24 Hours Test 02/25/17 16:30 02/25/17 16:42 02/25/17 22:04 02/26/17 05:22 Range/Units White Blood Count 4.43 4.30 4.8-10.8 K/uL Red Blood Count 2.92 3.23 4.2-5.4 M/uL Hemoglobin 9.1 9.9 12.0-16.0 g/dL Hematocrit 27.4 30.8 37-47 % Mean Corpuscular Volume 93.8 95.4 80-100 fL Mean Corpuscular Hemoglobin 31.2 30.7 25-34 pg Mean Corpuscular Hemoglobin Concent 33.2 32.1 32-36 g/dl RDW Standard Deviation 54.6 55.9 36.4-46.3 fL RDW Coefficient of Variation 15.9 16.0 11.5-14.5 % Platelet Count 139 140 130-400 K/uL Mean Platelet Volume 9.2 10.0 7.4-10.4 fL Prothrombin Time 11.5 9.0-12.0 SECONDS Prothromb Time International Ratio 1.1 0.9-1.1 Activated Partial Thromboplast Time 28.3 21.0-31.0 SECONDS Partial Thromboplastin Ratio 1.1 Sodium Level 138 137 136-145 mmol/L Potassium Level 3.6 4.2 3.5-5.1 mmol/L Chloride Level 96 95 98-107 mmol/L Carbon Dioxide Level 34 32 21-32 mmol/L Anion Gap 8.0 10.0 3-11 mmol/L Blood Urea Nitrogen 49 57 7-18 mg/dl Creatinine 7.70 9.70 0.60-1.20 mg/dl Est Creatinine Clear Calc Drug Dose 11.9 9.3 ml/min Estimated GFR () 7.4 5.6 Estimated GFR (Non- 6.4 4.8 BUN/Creatinine Ratio 6.2 5.9 10-20 Random Glucose 118 86 70-99 mg/dl Calcium Level 8.1 8.5 8.5-10.1 mg/dl Magnesium Level 2.0 1.8-2.4 mg/dl Total Bilirubin 0.5 0.2-1 mg/dl Aspartate Amino Transf (AST/SGOT) 13 15-37 U/L Alanine Aminotransferase (ALT/SGPT) 17 12-78 U/L Alkaline Phosphatase 89 45-117 U/L Total Creatine Kinase 22 26-192 U/L Creatine Kinase MB 0.5 0.5-3.6 ng/ml Creatine Kinase MB Ratio 2.3 0-3.0 Total Protein 6.7 6.4-8.2 gm/dl Albumin 2.9 3.4-5.0 gm/dl Globulin 3.8 2.5-4.0 gm/dl Albumin/Globulin Ratio 0.8 0.9-2 Lipase 74 73-393 U/L Bedside Troponin I < 0.030 0-0.045 ng/ml Bedside Glucose 97 70-90 mg/dl Neutrophils (%) (Auto) 68.3 % Lymphocytes (%) (Auto) 18.1 % Monocytes (%) (Auto) 9.5 % Eosinophils (%) (Auto) 3.7 % Basophils (%) (Auto) 0.2 % Neutrophils # (Auto) 2.93 1.4-6.5 K/uL Lymphocytes # (Auto) 0.78 1.2-3.4 K/uL Monocytes # (Auto) 0.41 0.11-0.59 K/uL Eosinophils # (Auto) 0.16 0-0.5 K/uL Basophils # (Auto) 0.01 0-0.2 K/uL Immature Granulocyte % (Auto) 0.2 % Immature Granulocyte # (Auto) 0.01 0.00-0.02 K/uL Troponin I 0.048 0-0.045 ng/ml Test 02/26/17 06:02 02/26/17 06:47 Range/Units Human Chorionic Gonadotropin, Qual NEG NEG Bedside Glucose 79 70-90 mg/dl
--- NOTE | 2017-02-26 13:08 | Nephrology Consultation ---
Nephrology Consultation Date of Consultation: Feb 26, 2017. Attending Physician: thao chao md Reason for Consultation: ESRD History of Present Illness Patient is a 31 year old female who dialyzes at [facility] on . pt missed dialysis on Saturday to attend a and came in on saturday fluid overloaded. however, was not sob. With one hour left into dialysis, pt developed 10/10 nonradiating chest pain. pt was given a nitro without relief. taken off the machine and sent to ER. pt was subsequently admitted. pt still with 2/10 chest pain, resting comfortably with no other symptoms other than intermittent burning of skin on head and arms. Past Medical/Surgical History Medical Problems: (1) Acute chest pain Status: Acute (2) Acute electrocardiogram changes Status: Acute (3) Acute hyperkalemia Status: Acute (4) Altered mental status Status: Acute (5) Anemia Status: Acute (6) ARF (acute renal failure) Status: Acute (7) Arm pain, left Status: Acute (8) Arm pain, left Status: Acute (9) Back pain Status: Acute (10) Cellulitis Status: Acute (11) Cellulitis of left upper extremity Status: Acute (12) Cholecystitis Status: Acute (13) Complications, dialysis, catheter, mechanical Status: Acute (14) Costochondritis Status: Acute (15) Dependence on renal dialysis Status: Acute (16) End stage renal disease Status: Acute (17) Epigastric abdominal pain Status: Acute (18) ESRD (end stage renal disease) on dialysis Status: Acute (19) Headache Status: Acute (20) Hypertensive urgency Status: Acute (21) Hypocalcemia Status: Acute (22) Hypocalcemia Permanent Comment: She has severe Critical hypocalcemia from missing Dialysis for so long. Will give 4gm ivpb now. with dialysis it should improve further. 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 Amoxicillin (Verified Adverse Reaction, Unknown, VOMITING, 02/21/17) Clavulanic Acid (Verified Adverse Reaction, Unknown, VOMITING, 02/21/17) Medications Current Inpatient Medications Medications (Trade) Dose Ordered Sig/Sachin Route Start Time Stop Time Status Last Admin Dose Admin Miscellaneous (Iv Fluids Completed) 1 ea PRN PRN N/A 02/25/17 20:30 02/25/18 20:29 Lisinopril (Zestril Tab) 40 mg HS PO 02/25/17 22:30 03/27/17 22:29 02/25/17 22:36 40 MG Acetaminophen (Tylenol Tab) 650 mg Q4H PRN PO 02/25/17 20:45 03/27/17 20:44 02/26/17 11:57 650 MG Nitroglycerin (Nitrostat Tab) 0.4 mg UD PRN SL 02/25/17 20:45 03/27/17 20:44 Insulin Aspart (novoLOG ASPART) SLIDING SCALE If C... ACHS SC 02/26/17 07:00 03/28/17 06:59 Glucose (Glucose 40% Gel) 15-30 GRAMS 15 GRAMS... UD PRN PO 02/25/17 20:45 03/27/17 20:44 Glucose (Glucose Chew Tab) 4-8 Tablets 4 Tabl... UD PRN PO 02/25/17 20:45 03/27/17 20:44 Dextrose (Dextrose 50% 50ML Syringe) 25-50ML OF 50% DW IV FOR... UD PRN IV 02/25/17 20:45 03/27/17 20:44 Glucagon (Glucagon Inj) 1 mg UD PRN SQ 02/25/17 20:45 03/27/17 20:44 Calcium Acetate (Phoslo Cap) 1,334 mg UD PRN PO 02/25/17 21:15 03/27/17 21:14 Calcium Acetate (Phoslo Cap) 2,668 mg TIDM PO 02/26/17 07:30 03/28/17 07:59 02/26/17 11:57 2,668 MG Calcium Carbonate (Tums Chew Tab) 1,500 mg HS PO 02/25/17 22:30 03/27/17 22:29 02/25/17 22:36 1,500 MG Escitalopram Oxalate (Lexapro Tab) 20 mg QAM PO 02/26/17 09:00 03/28/17 08:59 02/26/17 08:26 20 MG Famotidine (Pepcid Tab) 40 mg QAM PO 02/26/17 09:00 03/28/17 08:59 02/26/17 08:26 40 MG Fluticasone Propionate (Flonase Nasal [place]) 1 sprays DAILY FRED 02/26/17 09:00 03/28/17 08:59 Mirtazapine (Remeron Tab) 30 mg HS PO 02/25/17 22:30 03/27/17 22:29 02/25/17 22:36 30 MG Trazodone HCl (Desyrel Tab) 50 mg HS PO 02/25/17 22:30 03/27/17 22:29 02/25/17 22:36 50 MG Ondansetron HCl (Zofran Inj) 4 mg Q6H PRN IV 02/25/17 20:45 03/27/17 20:44 02/25/17 21:39 4 MG Nicotine (Nicoderm Cq 7 Mg Patch) 1 patch QAM TD 02/26/17 09:00 03/28/17 08:59 Miscellaneous (Remove Nicoderm Patch) 1 ea HS N/A 02/26/17 21:00 03/28/17 20:59 Carvedilol (Coreg Tab) 3.125 mg BID PO 02/26/17 21:00 03/28/17 08:59 Tramadol HCl (Ultram Tab) not relieved by tylenol @ Q4H PRN PO 02/26/17 05:40 03/27/17 05:39 02/26/17 08:26 50 MG Home Meds and Scripts Medications Dose Route/Sig Max Daily Dose Days Date Category Flonase Allergy Relief (Fluticasone Propionate (Nasal)) 50 Mcg/Act Spr 2 [place] FRED DAILY 02/14/17 Reported Monodox (Doxycycline Monohydrate) 100 Mg Cap 100 Mg PO BID 02/14/17 Reported Coreg (Carvedilol) 3.125 Mg Tab 3.125 Mg PO BID 02/09/17 Reported Prinivil (Lisinopril) 40 Mg Tab 40 Mg PO HS 02/06/17 Reported Pepcid (Famotidine) 40 Mg Tab 40 Mg PO QAM 01/22/17 Reported Tums (Calcium Carbonate) 500 Mg Chew 3 Tabs PO HS 01/19/17 Reported Phoslo 667 Mg (Calcium Acetate) 667 Mg Cap 1,334 Mg PO WITH SNACKS 12/02/16 Reported Escitalopram Oxalate 20 Mg Tab 20 Mg PO QAM 12/02/16 Reported Trazodone (Trazodone HCl) 50 Mg Tab 50 Mg PO HS 11/18/16 Reported Phoslo 667 Mg (Calcium Acetate) 667 Mg Cap 2,668 Mg PO WITH MEALS 11/18/16 Reported Remeron (Mirtazapine) 30 Mg Tab 30 Mg PO HS 08/24/16 Reported Ventolin Hfa (Albuterol) 200 Puffs/75060 Mcg Aers 2 Puffs INH QID PRN 07/05/16 Reported Review of Systems Constitutional: No fever, No chills Eyes: No diplopia ENT: No trouble swallowing Respiratory: No shortness of breath Cardiac: + chest pain Abdomen: No nausea, No vomiting Musculoskeletal: No muscle pain Female : No dysuria Psych: + anxiety all other review of systems otherwise negative Physical Exam Date Time Temp Pulse Resp B/P (MAP) Pulse Ox O2 Delivery O2 Flow Rate FiO2 02/26/17 12:16 37.0 70 20 155/91 (112) 95 Room Air 02/26/17 12:00 Room Air 02/26/17 08:30 Room Air 02/26/17 07:40 36.7 65 18 142/86 (104) 94 Room Air 02/26/17 04:00 92 Room Air 02/26/17 04:00 183/64 (103) 02/26/17 04:00 36.7 65 18 170/101 (124) 92 Room Air 02/26/17 00:14 36.9 70 17 158/98 (118) 92 Room Air 02/26/17 00:00 92 Room Air 02/25/17 22:05 36.7 66 18 180/110 98 Room Air 02/25/17 21:54 70 18 196/108 97 17 21:39 70 18 196/108 97 Room Air 02/25/17 19:15 75 16 185/123 97 Room Air 02/25/17 18:48 66 17 18:39 67 12 17 18:34 66 12 17 18:31 180/99 17 18:29 67 13 717 18:24 65 11 17 18:20 62 18 189/95 17 18:19 63 13 189/95 17 17:54 67 12 99 17 17:49 67 13 99 17 17:46 174/114 17 17:44 68 11 100 17 17:43 70 18 174/114 100 Room Air 02/25/17 17:39 66 14 100 17 17:34 69 14 100 73/17 17:29 66 12 100 02/25/17 17:24 65 12 100 7/3/17 17:19 65 9 100 7/17 17:14 65 10 100 7/17 17:09 66 11 100 7/17 17:04 66 11 100 7/3/17 16:59 64 7 100 02/25/17 16:54 65 11 100 7//17 16:49 65 11 100 7/17 16:44 65 10 100 02/25/17 16:39 67 11 100 7/17 16:34 66 14 99 /3/17 16:29 66 11 100 7/3/17 16:24 65 11 99 7/3/17 16:19 71 10 98 7/3/17 16:14 67 11 98 7/3/17 16:13 68 16 151/103 98 Room Air 17 16:12 151/103 7/3/17 16:09 66 8 99 7/3/17 16:04 69 12 98 7/3/17 15:59 69 12 98 7/3/17 15:54 65 10 98 7/3/17 15:49 66 9 97 7/3/17 15:44 66 10 98 02/25/17 15:39 67 12 98 02/25/17 15:34 68 12 98 02/25/17 15:29 69 10 98 02/25/17 15:24 68 13 98 02/25/17 15:19 68 16 98 02/25/17 15:14 67 12 99 02/25/17 15:09 68 10 99 02/25/17 15:04 66 13 02/25/17 14:59 67 15 99 02/25/17 14:54 68 10 98 02/25/17 14:49 68 11 98 02/25/17 14:44 69 13 99 02/25/17 14:39 69 13 99 02/25/17 14:34 69 14 99 02/25/17 14:29 68 12 99 02/25/17 14:28 98 Nasal Cannula 2.0 02/25/17 14:24 71 12 98 02/25/17 14:19 36.8 71 18 169/97 98 Nasal Cannula 2.0 02/25/17 14:19 98 Nasal Cannula 2.0 02/25/17 14:19 70 12 99 02/25/17 14:19 98 Nasal Cannula 2.0 02/25/17 14:15 75 02/25/17 14:12 169/97 General Appearance: no apparent distress Eyes: normal inspection ENT: normal ENT inspection Neck: supple, no JVD Respiratory/Chest: lungs clear Cardiovascular: regular rate, rhythm, no edema Abdomen: normal bowel sounds, non tender, soft Extremities: normal range of motion, non-tender Neurologic/Psych: no motor/sensory deficits, alert, oriented x 3 Skin: normal color, no jaundice Diagnostics Last 24 Hours Test 02/25/17 16:30 02/25/17 16:42 02/25/17 22:04 02/26/17 05:22 White Blood Count 4.43 K/uL 4.30 K/uL Red Blood Count 2.92 M/uL 3.23 M/uL Hemoglobin 9.1 g/dL 9.9 g/dL Hematocrit 27.4 % 30.8 % Mean Corpuscular Volume 93.8 fL 95.4 fL Mean Corpuscular Hemoglobin 31.2 pg 30.7 pg Mean Corpuscular Hemoglobin Concent 33.2 g/dl 32.1 g/dl RDW Standard Deviation 54.6 fL 55.9 fL RDW Coefficient of Variation 15.9 % 16.0 % Platelet Count 139 K/uL 140 K/uL Mean Platelet Volume 9.2 fL 10.0 fL Prothrombin Time 11.5 SECONDS Prothromb Time International Ratio 1.1 Activated Partial Thromboplast Time 28.3 SECONDS Partial Thromboplastin Ratio 1.1 Sodium Level 138 mmol/L 137 mmol/L Potassium Level 3.6 mmol/L 4.2 mmol/L Chloride Level 96 mmol/L 95 mmol/L Carbon Dioxide Level 34 mmol/L 32 mmol/L Anion Gap 8.0 mmol/L 10.0 mmol/L Blood Urea Nitrogen 49 mg/dl 57 mg/dl Creatinine 7.70 mg/dl 9.70 mg/dl Est Creatinine Clear Calc Drug Dose 11.9 ml/min 9.3 ml/min Estimated GFR () 7.4 5.6 Estimated GFR (Non- 6.4 4.8 BUN/Creatinine Ratio 6.2 5.9 Random Glucose 118 mg/dl 86 mg/dl Calcium Level 8.1 mg/dl 8.5 mg/dl Magnesium Level 2.0 mg/dl Total Bilirubin 0.5 mg/dl Aspartate Amino Transf (AST/SGOT) 13 U/L Alanine Aminotransferase (ALT/SGPT) 17 U/L Alkaline Phosphatase 89 U/L Total Creatine Kinase 22 U/L Creatine Kinase MB 0.5 ng/ml Creatine Kinase MB Ratio 2.3 Total Protein 6.7 gm/dl Albumin 2.9 gm/dl Globulin 3.8 gm/dl Albumin/Globulin Ratio 0.8 Lipase 74 U/L Bedside Troponin I < 0.030 ng/ml Bedside Glucose 97 mg/dl Neutrophils (%) (Auto) 68.3 % Lymphocytes (%) (Auto) 18.1 % Monocytes (%) (Auto) 9.5 % Eosinophils (%) (Auto) 3.7 % Basophils (%) (Auto) 0.2 % Neutrophils # (Auto) 2.93 K/uL Lymphocytes # (Auto) 0.78 K/uL Monocytes # (Auto) 0.41 K/uL Eosinophils # (Auto) 0.16 K/uL Basophils # (Auto) 0.01 K/uL Immature Granulocyte % (Auto) 0.2 % Immature Granulocyte # (Auto) 0.01 K/uL Troponin I 0.048 ng/ml Test 02/26/17 06:02 02/26/17 06:47 02/26/17 10:22 02/26/17 10:55 Human Chorionic Gonadotropin, Qual NEG Bedside Glucose 79 mg/dl 92 mg/dl Troponin I 0.046 ng/ml Assessment & Plan ESRD-no need for emergent dialysis today. will continue dialysis schedule while inpatient. volume status appears appropriate and electrolytes are stable. Anemia of Renal Failure-follow hg levels and dose procrit accordingly. hg of 9.9. LOKESH-follow phos levels. on phoslo.
[2017-02-26] MEDS: ONDANSETRON INJ 2 MG/ML 2 ML VIAL IV PRN (19:10)
[2017-02-26] MEDS: CALCIUM CARBONATE 500 MG CHEWABLE PO SCH (21:15)
[2017-02-26] MEDS: TRAZODONE HCL 50 MG TAB PO SCH (21:15)
[2017-02-26] MEDS: CARVEDILOL 3.125 MG TAB PO SCH (21:15)
[2017-02-26] MEDS: MIRTAZAPINE TAB 15 MG TAB PO SCH (21:15)
[2017-02-26] MEDS: LISINOPRIL 40 MG TAB PO SCH (21:16)
[2017-02-27] VITALS (25 sets, daily range): BP systolic 154–193; BP diastolic 83–121; PULSE 61–76; TEMP 36.7–37.1; O2SAT 94–97
[2017-02-27] MEDS ORDERED: HydrALAZINE HCL 20 MG/ML VIAL IV. STA (04:35)
[2017-02-27] MEDS: INSULIN ASPART 100 UNITS/ML 3 ML PEN SC SCH ×4 (07:00→21:00)
[2017-02-27 07:11] LABS: BUN/CREATININE RATIO 6.4 (10-20); POTASSIUM 4.5 mmol/L (3.5-5.1)
[2017-02-27] MEDS: CALCIUM ACETATE 667MG GELCAP PO SCH ×3 (07:51→16:45)
[2017-02-27] MEDS: NICOTINE 7 MG/24 HR TDSY TD SCH (07:52)
[2017-02-27] MEDS: FAMOTIDINE 20 MG TAB PO SCH (07:52)
[2017-02-27] MEDS: CARVEDILOL 3.125 MG TAB PO SCH ×2 (07:52→21:09)
[2017-02-27] MEDS: FLUTICASONE PROPIONATE NA SPR 16 GM BTL NAE SCH (07:53)
[2017-02-27] MEDS: ESCITALOPRAM OXALATE 20 MG TAB PO SCH (07:53)
[2017-02-27] MEDS ORDERED: EPOETIN ALFA 10,000 UNITS/ML VIAL IV. SCH (08:00)
[2017-02-27] MEDS: TRAMADOL HCL 50 MG TAB PO PRN ×2 (09:22→18:29)
--- NOTE | 2017-02-27 10:22 | Nephrology Progress Note ---
Nephrology Progress Note Date of Service: Feb 27, 2017. Subjective 31 yo female with esrd who had a recent pd catheter placed. no more chest pain. pt resting comfortably. no complaints this morning. Objective Date Time Temp Pulse Resp B/P (MAP) Pulse Ox O2 Delivery O2 Flow Rate FiO2 02/27/17 09:23 181/121 (141) 02/27/17 08:20 36.8 76 20 167/110 (129) 97 Room Air Free Flow/[place] 02/27/17 08:05 Room Air 02/27/17 04:00 94 Room Air 02/27/17 03:54 36.8 67 18 171/91 (117) 94 Room Air 02/27/17 00:00 96 Room Air 02/26/17 23:48 36.8 66 17 163/84 (110) 96 Room Air 02/26/17 20:00 96 Room Air 02/26/17 19:05 36.8 69 16 167/100 (122) 95 Room Air 02/26/17 15:40 95 Room Air 02/26/17 12:16 37.0 70 20 155/91 (112) 95 Room Air 02/26/17 12:00 Room Air Physical Exam: General-aaox3 Eyes-no scleral icterus ENT-mmm Neck-supple Lungs-cta Heart-rrr Abdomen-bs+ s/nt/nd, +pd catheter in place-dressing intact Extremities-no c/c/e Neuro-nonfocal Current Inpatient Medications Medications (Trade) Dose Ordered Sig/Sachin Route Start Time Stop Time Status Last Admin Dose Admin Miscellaneous (Iv Fluids Completed) 1 ea PRN PRN N/A 02/25/17 20:30 02/25/18 20:29 Lisinopril (Zestril Tab) 40 mg HS PO 02/25/17 22:30 03/27/17 22:29 02/26/17 21:16 40 MG Acetaminophen (Tylenol Tab) 650 mg Q4H PRN PO 02/25/17 20:45 03/27/17 20:44 02/26/17 19:11 650 MG Nitroglycerin (Nitrostat Tab) 0.4 mg UD PRN SL 02/25/17 20:45 03/27/17 20:44 Insulin Aspart (novoLOG ASPART) SLIDING SCALE If C... ACHS SC 02/26/17 07:00 03/28/17 06:59 Glucose (Glucose 40% Gel) 15-30 GRAMS 15 GRAMS... UD PRN PO 02/25/17 20:45 03/27/17 20:44 Glucose (Glucose Chew Tab) 4-8 Tablets 4 Tabl... UD PRN PO 02/25/17 20:45 03/27/17 20:44 Dextrose (Dextrose 50% 50ML Syringe) 25-50ML OF 50% DW IV FOR... UD PRN IV 02/25/17 20:45 03/27/17 20:44 Glucagon (Glucagon Inj) 1 mg UD PRN SQ 02/25/17 20:45 03/27/17 20:44 Calcium Acetate (Phoslo Cap) 1,334 mg UD PRN PO 02/25/17 21:15 03/27/17 21:14 Calcium Acetate (Phoslo Cap) 2,668 mg TIDM PO 02/26/17 07:30 03/28/17 07:59 02/27/17 07:51 2,668 MG Calcium Carbonate (Tums Chew Tab) 1,500 mg HS PO 02/25/17 22:30 03/27/17 22:29 02/26/17 21:15 1,500 MG Escitalopram Oxalate (Lexapro Tab) 20 mg QAM PO 02/26/17 09:00 03/28/17 08:59 02/27/17 07:53 20 MG Famotidine (Pepcid Tab) 40 mg QAM PO 02/26/17 09:00 03/28/17 08:59 02/27/17 07:52 40 MG Fluticasone Propionate (Flonase Nasal [place]) 1 sprays DAILY FRED 02/26/17 09:00 03/28/17 08:59 Mirtazapine (Remeron Tab) 30 mg HS PO 02/25/17 22:30 03/27/17 22:29 02/26/17 21:15 30 MG Trazodone HCl (Desyrel Tab) 50 mg HS PO 02/25/17 22:30 03/27/17 22:29 02/26/17 21:15 50 MG Ondansetron HCl (Zofran Inj) 4 mg Q6H PRN IV 02/25/17 20:45 03/27/17 20:44 02/26/17 19:10 4 MG Nicotine (Nicoderm Cq 7 Mg Patch) 1 patch QAM TD 02/26/17 09:00 03/28/17 08:59 Miscellaneous (Remove Nicoderm Patch) 1 ea HS N/A 02/26/17 21:00 03/28/17 20:59 02/26/17 21:17 1 EA Carvedilol (Coreg Tab) 3.125 mg BID PO 02/26/17 21:00 03/28/17 08:59 02/27/17 07:52 3.125 MG Tramadol HCl (Ultram Tab) not relieved by tylenol @ Q4H PRN PO 02/26/17 05:40 03/27/17 05:39 02/27/17 09:22 50 MG Epoetin [place] (Procrit Inj) 10,000 units TODAY@0800 IV. 02/27/17 08:00 02/27/17 23:59 Last 24 Hours Test 02/26/17 10:22 02/26/17 10:55 02/26/17 16:05 02/26/17 20:41 Troponin I 0.046 ng/ml Bedside Glucose 92 mg/dl 88 mg/dl 89 mg/dl Test 02/27/17 05:18 02/27/17 06:44 Sodium Level 136 mmol/L Potassium Level 4.5 mmol/L Chloride Level 93 mmol/L Carbon Dioxide Level 29 mmol/L Anion Gap 14.0 mmol/L Blood Urea Nitrogen 76 mg/dl Creatinine 12.00 mg/dl Est Creatinine Clear Calc Drug Dose 7.5 ml/min Estimated GFR () 4.3 Estimated GFR (Non- 3.7 BUN/Creatinine Ratio 6.4 Random Glucose 69 mg/dl Calcium Level 9.0 mg/dl Bedside Glucose 80 mg/dl Assessment & Plan ESRD-plan on dialysis today on a 2k bath and will attempt 2 liters fluid removal on a larger dialyzer. Anemia of Renal Failure-follow hg levels and dose procrit accordingly. hg of 9.9. LOKESH-follow phos levels. on phoslo. HTN: bp is very high this morning. given 10mg of iv hydralazine. on coreg 3.125mg po bid. lisinopril 40mg a day. would start norvasc 5mg a day and would give tomorrow and or this afternoon after dialysis if bp still high.
--- NOTE | 2017-02-27 10:34 | Progress Note ---
Internal Med Progress Note Date of Service: Feb 27, 2017. Provider Documentation: SUBJECTIVE: Patient denies any chest pain today No associated SOB, cough, fever, chills, nausea, vomiting, sweating, palpitations, diaphoresis. Tele- no events OBJECTIVE: Vital Signs-as noted below Exam: GENERAL: Noted to be obese, AAOX3, no distress NECK: Short neck. LUNGS: Decreased breath sounds. No anterior chest wall tenderness. HEART: Regular rate and rhythm. EXTREMITIES: No edema, no erythema or tenderness NEUROLOGIC: No gross focality. Lab data as noted below. ASSESSMENT & PLAN: ASSESSMENT & PLAN: CHEST PAIN, ATYPICAL, RECURRENT : Resolved Patient presented with atypical chest pain -right sided while she was in dialysis yesterday. No associated symptoms Was in hospital 01/25/17 for similar symptoms, had multiple admissions in past for this. Last admission was transferred to [facility] for EKG changes, Cardiac cath was done on 01/25- Normal coronaries -Likely muscular, wants me to give her narcotics. Unlikely cardiac, no signs of pneumonia -EKG- no acute ischemic changes, Troponin - 0.048, 0.046 (chronic elevation likely in setting of ESRD ) -Will avoid narcotics for pain -No further cardiac intervention needed with recent 01/25/17 cath= negative HTN- Uncontrolled -On lisinopril, coreg 3.125 mg BID -Added norvasc 5 mg today -For dialysis today -Monitor ESRD ON HD -On dialysis. Known to be non compliant in past -Nephrology consulted. Discussed with Dr Jo. Appreciate inputs CHRONIC ANEMIA SECONDARY TO ESRD -Hb stable with no overt bleeding DM2 -Diet controlled, well controlled TOBACCO ABUSE DISORDER Patient was counseled to stop smoking. DVT prophylaxis SCDS/TEDS FULL CODE DISPOSITION Likely discharge today after dialysis, BP monitoring Vital Signs: Date Time Temp Pulse Resp B/P (MAP) Pulse Ox O2 Delivery O2 Flow Rate FiO2 02/27/17 09:23 181/121 (141) 02/27/17 08:20 36.8 76 20 167/110 (129) 97 Room Air Free Flow/Blowby 02/27/17 08:05 Room Air 02/27/17 04:00 94 Room Air 02/27/17 03:54 36.8 67 18 171/91 (117) 94 Room Air 02/27/17 00:00 96 Room Air 02/26/17 23:48 36.8 66 17 163/84 (110) 96 Room Air 02/26/17 20:00 96 Room Air 02/26/17 19:05 36.8 69 16 167/100 (122) 95 Room Air 02/26/17 15:40 95 Room Air 02/26/17 12:16 37.0 70 20 155/91 (112) 95 Room Air 02/26/17 12:00 Room Air Lab Results: Results Past 24 Hours Test 02/26/17 10:55 02/26/17 16:05 02/26/17 20:41 02/27/17 05:18 Range/Units Bedside Glucose 92 88 89 70-90 mg/dl Sodium Level 136 136-145 mmol/L Potassium Level 4.5 3.5-5.1 mmol/L Chloride Level 93 98-107 mmol/L Carbon Dioxide Level 29 21-32 mmol/L Anion Gap 14.0 3-11 mmol/L Blood Urea Nitrogen 76 7-18 mg/dl Creatinine 12.00 0.60-1.20 mg/dl Est Creatinine Clear Calc Drug Dose 7.5 ml/min Estimated GFR () 4.3 Estimated GFR (Non- 3.7 BUN/Creatinine Ratio 6.4 10-20 Random Glucose 69 70-99 mg/dl Calcium Level 9.0 8.5-10.1 mg/dl Test 02/27/17 06:44 Range/Units Bedside Glucose 80 70-90 mg/dl
[2017-02-27] MEDS: ONDANSETRON INJ 2 MG/ML 2 ML VIAL IV PRN (18:27)
[2017-02-27] MEDS ORDERED: AMLODIPINE BESYLATE 5 MG TAB PO ONE ×2 (18:30→18:45)
[2017-02-27] MEDS: TRAZODONE HCL 50 MG TAB PO SCH (21:09)
[2017-02-27] MEDS: CALCIUM CARBONATE 500 MG CHEWABLE PO SCH (21:09)
[2017-02-27] MEDS: MIRTAZAPINE TAB 15 MG TAB PO SCH (21:09)
[2017-02-27] MEDS: LISINOPRIL 40 MG TAB PO SCH (21:10)
[2017-02-28 03:56] VITALS: BP 152/84; PULSE 71; TEMP 36.8; O2SAT 96
[2017-02-28] MEDS: INSULIN ASPART 100 UNITS/ML 3 ML PEN SC SCH (06:32)
[2017-02-28 06:51] LABS: BUN/CREATININE RATIO 5.2 (10-20); CALCIUM 8.9 mg/dl (8.5-10.1); CREATININE 8.2 mg/dl (0.60-1.20); POTASSIUM 4.5 mmol/L (3.5-5.1)
[2017-02-28 07:57] VITALS: BP 166/98; PULSE 71; TEMP 36.7; O2SAT 97
[2017-02-28 08:00] VITALS: O2SAT 97
[2017-02-28] MEDS: CALCIUM ACETATE 667MG GELCAP PO SCH (08:39)
[2017-02-28] MEDS: CARVEDILOL 3.125 MG TAB PO SCH (08:39)
[2017-02-28] MEDS: FAMOTIDINE 20 MG TAB PO SCH (08:40)
[2017-02-28] MEDS: FLUTICASONE PROPIONATE NA SPR 16 GM BTL NAE SCH (08:40)
[2017-02-28] MEDS: NICOTINE 7 MG/24 HR TDSY TD SCH (08:41)
--- NOTE | 2017-02-28 08:42 | Progress Note ---
Internal Med Progress Note Date of Service: Feb 28, 2017. Provider Documentation: SUBJECTIVE : Patient denies any chest pain today. No migraine headaches. No associated SOB, cough, fever, chills, nausea, vomiting, sweating, palpitations, diaphoresis. Eager to be discharged BP much better OBJECTIVE: Vital Signs-as noted below Exam: GENERAL: Noted to be obese, AAOX3, no distress NECK: Short neck. LUNGS: Decreased breath sounds. No anterior chest wall tenderness. HEART: Regular rate and rhythm. EXTREMITIES: No edema, no erythema or tenderness NEUROLOGIC: No gross focality. Lab data as noted below. ASSESSMENT & PLAN: ASSESSMENT & PLAN: CHEST PAIN, ATYPICAL, RECURRENT : Resolved Patient presented with atypical chest pain -right sided while she was in dialysis yesterday. No associated symptoms Was in hospital 01/25/17 for similar symptoms, had multiple admissions in past for this. Last admission was transferred to [facility] for EKG changes, Cardiac cath was done on 01/25- Normal coronaries -Likely muscular, wants me to give her narcotics. Unlikely cardiac, no signs of pneumonia -EKG- no acute ischemic changes, Troponin - 0.048, 0.046 (chronic elevation likely in setting of ESRD ) -AVOID NARCOTICS with prior hx of drug seeking behavior -No further cardiac intervention needed with recent 01/25/17 cath= negative HTN- Uncontrolled, BP now improved -On lisinopril, coreg 3.125 mg BID -Added norvasc 10 mg this admission -S/P Dialysis -Monitor ESRD ON HD -On dialysis. Known to be non compliant in past, but better now per discussion with Dr Jo. More compliant -Nephrology consulted. Discussed with Dr Jo. Appreciate inputs CHRONIC ANEMIA SECONDARY TO ESRD -Hb stable with no overt bleeding DM2 -Diet controlled, well controlled TOBACCO ABUSE DISORDER Patient was counseled to stop smoking. DVT prophylaxis SCDS/TEDS FULL CODE DISPOSITION Eager to be discharged Ok to discharge today Vital Signs: Date Time Temp Pulse Resp B/P (MAP) Pulse Ox O2 Delivery O2 Flow Rate FiO2 02/28/17 07:57 36.7 71 20 166/98 (120) 97 Room Air 02/28/17 04:00 Room Air 02/28/17 03:56 36.8 71 19 152/84 (106) 96 Room Air 02/27/17 23:59 Room Air 02/27/17 23:22 36.7 71 18 155/88 (110) 95 Room Air 02/27/17 22:29 75 163/83 (109) 02/27/17 21:11 73 172/113 (132) 02/27/17 19:45 36.7 68 18 170/109 (129) 96 Room Air 02/27/17 19:40 Room Air 02/27/17 18:42 67 18 166/102 (123) 96 02/27/17 18:32 Room Air 02/27/17 18:15 37.1 68 193/105 (134) 02/27/17 17:45 75 183/110 02/27/17 17:30 75 187/105 02/27/17 17:15 71 171/105 02/27/17 17:00 69 185/106 02/27/17 16:45 69 169/103 02/27/17 16:30 66 156/86 02/27/17 16:15 61 154/112 02/27/17 16:00 67 156/88 02/27/17 15:45 68 160/103 02/27/17 15:30 65 170/95 02/27/17 15:15 66 175/101 02/27/17 15:03 63 173/102 02/27/17 15:00 37.0 63 173/102 (125) 02/27/17 12:05 37.0 66 20 169/104 (125) 97 Room Air 02/27/17 12:03 Room Air 02/27/17 09:23 181/121 (141) Lab Results: Results Past 24 Hours Test 02/27/17 10:47 02/27/17 18:31 02/27/17 21:06 02/28/17 05:26 Range/Units Bedside Glucose 74 85 133 70-90 mg/dl Sodium Level 138 136-145 mmol/L Potassium Level 4.5 3.5-5.1 mmol/L Chloride Level 99 98-107 mmol/L Carbon Dioxide Level 30 21-32 mmol/L Anion Gap 9.0 3-11 mmol/L Blood Urea Nitrogen 42 7-18 mg/dl Creatinine 8.20 0.60-1.20 mg/dl Est Creatinine Clear Calc Drug Dose 10.8 ml/min Estimated GFR () 6.8 Estimated GFR (Non- 5.9 BUN/Creatinine Ratio 5.2 10-20 Random Glucose 67 70-99 mg/dl Calcium Level 8.9 8.5-10.1 mg/dl Test 02/28/17 06:29 Range/Units Bedside Glucose 75 70-90 mg/dl
[2017-02-28] MEDS ORDERED: AMLO-114 PO (08:43)
--- NOTE | 2017-02-28 08:47 | Discharge Summary ---
Discharge Summary Date of Service Feb 28, 2017. Discharge Summary Admission Date: Feb 25, 2017 at 20:11 Discharge Date: Feb 28, 2017 Discharge Disposition: Home Principal Diagnosis: 1. HTN urgency 2. Chest pain, acute DC ruled out Secondary Diagnoses/Problems: 1. DM II 2. ESRD on HD 3. Chronic anemia of CKD 4. Tobacco abuse disorder Procedures: -Tele monitoring -Hemodialysis -EKG -Serial Trop -CXR -CT head Consultations: Nephrology, Dr Jo Pending Studies/Follow-Up: Instructions / Follow-Up Instructions / Follow-Up NEW MEDICATIONS: 1. Amlodipine 10 mg daily MONITOR 1. BP with new medications added during the admission FOLLOW UP 1. Follow up with Dr Aldridge 03/05/17 at 2:55 PM 2. Follow up with nephrology as per routine Medication Reconciliation New Medications: Amlodipine (Norvasc) 10 Mg Tab 10 MG PO DAILY for 30 Days, #30 TAB Continued Medications: Albuterol Hfa (Ventolin Hfa) 200 Puffs/98329 Mcg Aers 2 PUFFS INH QID PRN for Allergy Symptoms, INHALER Calcium Acetate (Phoslo 667 Mg) 667 Mg Cap 2668 MG PO WITH MEALS, CAP Calcium Acetate (Phoslo 667 Mg) 667 Mg Cap 1334 MG PO WITH SNACKS, CAP Calcium Carbonate (Tums) 500 Mg Chew 3 TABS PO HS Carvedilol (Coreg) 3.125 Mg Tab 3.125 MG PO BID, #60 Escitalopram Oxalate (Escitalopram Oxalate) 20 Mg Tab 20 MG PO QAM Famotidine (Pepcid) 40 Mg Tab 40 MG PO QAM, TAB Fluticasone Propionate (Nasal) (Flonase Allergy Relief) 50 Mcg/Act Spr 2 SPRAY FRED DAILY Lisinopril (Prinivil) 40 Mg Tab 40 MG PO HS, TAB Mirtazapine (Remeron) 30 Mg Tab 30 MG PO HS Trazodone Hcl (Trazodone) 50 Mg Tab 50 MG PO HS, TAB Discontinued Medications: Doxycycline Monohydrate (Monodox) 100 Mg Cap 100 MG PO BID, CAP Admission Information HPI (per Admitting provider): Recent confinement last month for chest pain. PE workup unremarkable. TTE showed: n The left ventricle is moderately dilated. n There is borderline concentric left ventricular hypertrophy. n Left ventricular systolic function is mild to moderately reduced. n Ejection Fraction = 45-50%. n There is moderate to severe septal hypokinesis. n The right ventricle is normal in size and function. n The right ventricular systolic function is normal. Cardiology subsequently transferred to [facility] for diagnostic cath.. Cardiac cath showed clean coronaries. Patient was at dialysis today when she developed substernal pain achy pleuritic. No shortness of breath. Patient also had nausea, emesis symptoms. BP unknown at time of episode. At the ER, some relief with nitroglycerin. Physical Exam (per Admitting): General Appearance: + obese, + pertinent finding (comfortable, watching TV) Head: normocephalic ENT: + pertinent finding (pale palpebral conjunctivae) Neck: + pertinent finding (short) Respiratory/Chest: + decreased breath sounds, + pertinent finding (anterior chest wall tenderness) Cardiovascular: regular rate, rhythm Abdomen/GI: soft Extremities/Musculoskelatal: non-tender Neurologic/Psych: alert, oriented x 3 Skin: + pallor Hospital Course ASSESSMENT & PLAN: CHEST PAIN, ATYPICAL, RECURRENT : Resolved Patient presented with atypical chest pain -right sided while she was in dialysis yesterday. No associated symptoms Was in hospital 01/25/17 for similar symptoms, had multiple admissions in past for this. Last admission was transferred to [facility] for EKG changes, Cardiac cath was done on 01/25- Normal coronaries -Likely muscular, wants me to give her narcotics. Unlikely cardiac, no signs of pneumonia -EKG- no acute ischemic changes, Troponin - 0.048, 0.046 (chronic elevation likely in setting of ESRD ) -AVOID NARCOTICS with prior hx of drug seeking behavior -No further cardiac intervention needed with recent 01/25/17 cath= negative HTN- Uncontrolled, BP now improved -On lisinopril, coreg 3.125 mg BID -Added norvasc 10 mg this admission -S/P Dialysis -Monitor ESRD ON HD -On dialysis. Known to be non compliant in past, but better now per discussion with Dr Jo. More compliant -Nephrology consulted. Discussed with Dr Jo. Appreciate inputs CHRONIC ANEMIA SECONDARY TO ESRD -Hb stable with no overt bleeding DM2 -Diet controlled, well controlled TOBACCO ABUSE DISORDER Patient was counseled to stop smoking. DVT prophylaxis SCDS/TEDS FULL CODE DISPOSITION Eager to be discharged Ok to discharge today Total time spent on discharge = 28 minutes This includes examination of the patient, discharge planning, medication reconciliation, and communication with other providers. Discharge Instructions Discharge Discharge Diagnosis / Problem: 1. HTN urgency, 2. Chest pain, acute DC ruled out Discharge Goals Goal(s): Improve disease control, Therapeutic intervention, Prevent Disease Progression Activity Recommendations Activity Limitations: resume your previous activity . Instructions / Follow-Up Instructions / Follow-Up NEW MEDICATIONS: 1. Amlodipine 10 mg daily MONITOR 1. BP with new medications added during the admission FOLLOW UP 1. Follow up with Dr Aldridge 03/05/17 at 2:55 PM 2. Follow up with nephrology as per routine Current Hospital Diet Patient's current hospital diet: Diabetes Type 2 Diet, Renal Diet Discharge Diet Recommended Diet: AHA Diet (Heart Healthy), Low Sodium Diet (2gm Na), Diabetes Type 2 Diet, Renal Diet Pending Studies Studies pending at discharge: no Laboratory Results Hemoglobin A1c Test 01/23/17 04:25 Range/Units Estimated Average Glucose 97 mg/dl Hemoglobin A1c 5.0 4.5-5.6 % Medical Emergencies . Who to Call and When: Medical Emergencies: If at any time you feel your situation is an emergency, please call 911 immediately. . Non-Emergent Contact Non-Emergency issues call your: Primary Care Provider . . "Provider Documentation" section prepared by Renea Diaz. . VTE Core Measure Inpt VTE Proph given/why not?: Victoriano Hull, [facility]
[2017-02-28] MEDS ORDERED: AMLODIPINE BESYLATE 5 MG TAB PO SCH (09:00)
[2017-02-28 09:36] VITALS: BP 166/98; PULSE 71; TEMP 36.7; O2SAT 97
[2017-02-28] MEDS: ESCITALOPRAM OXALATE 20 MG TAB PO SCH (09:46)
[2017-03-06] MEDS ORDERED: CARV3.122 PO (10:28)
[2017-03-08] MEDS ORDERED: ZFRODT4HP PO (15:53)
[2017-03-20] MEDS ORDERED: DOXY100T PO (14:35)
[2017-03-20] MEDS ORDERED: TOBR0.3S4 OPL (14:35)
[2017-04-24] MEDS ORDERED: CMD/25 PO (12:00)
[2017-04-26] MEDS ORDERED: CMD3 PO (16:37)
[2017-04-26] MEDS ORDERED: LISI20TA3 PO (16:37)
[2017-05-15] MEDS ORDERED: VNTHFA/IN INH (12:28)
[2017-05-15] MEDS ORDERED: LISI-725 PO (13:43)
[2017-05-15] MEDS ORDERED: CALC500C3 PO (13:50)
[2017-05-15] MEDS ORDERED: CRG125 PO (15:17)
[2017-05-15] MEDS ORDERED: NRV/5 PO (15:17)
[2017-05-15] MEDS ORDERED: BENZ100C7 PO (15:22)
[2017-05-15] MEDS ORDERED: FLUT0.15 NAE (15:33)
[2017-05-15] MEDS ORDERED: CALC0.5C17 PO (18:14)
[2017-05-15] MEDS ORDERED: MIRT30TA3 PO (19:24)
[2017-05-15] MEDS ORDERED: TRAZ50TA35 PO (19:56)
[2017-05-15] MEDS ORDERED: CALC667C4 PO ×2 (19:56→21:12)
[2017-05-15] MEDS ORDERED: LXP/20 PO (21:08)
[2017-05-15] MEDS ORDERED: FAMO40TA6 PO (23:12)
[2017-05-17] MEDS ORDERED: CRG25 PO (14:53)
[2017-05-21] MEDS ORDERED: APR25 PO (00:24)
[2017-05-21] MEDS ORDERED: APR50 PO (15:28)
[2017-05-21] MEDS ORDERED: ATV1 PO (15:28)
[2017-05-21] MEDS ORDERED: ativan PO (16:06)
== END 2017-02-28 10:00 | disposition home or self-care (01) ==
LOC: EDBD 14:04 → C.EDB 14:05 → C.2T 20:11 → ENRESERV 20:18
PROVIDERS: ADMIT Internal Medicine; ATTEND Internal Medicine
DX: I16.0 Hypertensive urgency (principal); I13.2 Hypertensive heart and chronic kidney disease with heart failure and with stage 5 chronic kidney disease, or end stage renal disease; N18.6 End stage renal disease; T86.12 Kidney transplant failure; Y83.0 Surgical operation with transplant of whole organ as the cause of abnormal reaction of the patient, or of later complication, without mention of misadventure at the time of the procedure; D63.1 Anemia in chronic kidney disease; D61.818 Other pancytopenia; E11.9 Type 2 diabetes mellitus without complications; F17.200 Nicotine dependence, unspecified, uncomplicated; Z90.49 Acquired absence of other specified parts of digestive tract; Z99.2 Dependence on renal dialysis; Z83.3 Family history of diabetes mellitus; Z82.49 Family history of ischemic heart disease and other diseases of the circulatory system

== ENCOUNTER 2017-03-06 18:23 | Inpatient (IN) | payer OTHER ==
[~2017-03-06] VITALS: Ht 167.6 cm; Wt 86.5 kg
[~2017-03-06 18:23] MED LIST changes: +AMLO-114 PO; +CALC500C3 PO; +CARV3.122 PO; -DOXY100C76 PO; +FLUT0.15 NAE; -OXYC-57 PO; +VNTHFA/IN INH
[2017-03-06] MEDS ORDERED: NRV/10 PO (19:19)
[2017-03-06] MEDS ORDERED: LSN40 PO (19:19)
[2017-03-06] MEDS ORDERED: ACET-1256 PO (19:20)
[2017-03-06] MEDS ORDERED: MIRT30TA3 PO (19:24)
--- NOTE | 2017-03-06 19:37 | EMERGENCY ROOM VISIT NOTE ---
History Report prepared by Katia: Roberto Dunbar Under the Supervision of: Dr. Taylor Rodarte D.O. First contact with patient: 19:12 Chief Complaint: ABDOMINAL PAIN Stated Complaint: STOMACH CRAMPING Nursing Triage Summary: pt reports after diallysis started with severe abdominal cramping , reports nausea History of Present Illness The patient is a 31 year old female who presents to the Emergency Room with complaints of constant, worsening, lower abdominal pain beginning this morning. The patient states that her pain has moved to the right side of her abdomen. She reports that she went to dialysis this morning and made it through her entire treatment. The patient notes that as she was walking to her vehicle, discomfort started in her abdomen. She states that she thought it was because she needed to urinate. The patient notes that she drove to her destination, urinated, and still had discomfort. She reports that she tried taking Tylenol at home for her symptoms, but it did not help. The patient states that she has lost her appetite, but she is still able to pass gas. She denies fevers, chills , change in diet, change in exercise, bloating, and change in bowel movements. The patient reports that her last bowel movement was this morning. She states that she had an umbilical hernia repaired and a PD catheter put in two weeks ago. She notes that she just overcame a sinus infection and was treated is Doxycycline; she finished all of her doses. The patient reports that she was hospitalized for her blood pressure last week as well. She states that she has chronic renal failure and a history of a cholecystectomy. The patient notes that she still has her appendix. Source of History: patient Onset: this morning Position: abdomen (lower) Timing: constant, worsening Associated Symptoms: No fevers, No chills Note: Associated symptoms: decreased appetite Denies: change in diet, change in exercise, bloating, and change in bowel movements. Review of Systems See HPI for pertinent positives & negatives. A total of 10 systems reviewed and were otherwise negative. Past Medical & Surgical Medical Problems: (1) Abdominal pain (2) Chest pain (3) CKD (chronic kidney disease) stage V requiring chronic dialysis (4) DM2 (diabetes mellitus, type 2) (5) Focal segmental glomerulosclerosis (6) HTN (hypertension) (7) Hyperkalemia (8) Migraine (9) Renal failure (10) Syncope Surgical Problems: (1) H/O knee surgery (2) H/O tubal ligation (3) H/O: (4) Kidney transplant status, living related donor Social History Problems: (1) Kidney transplanted Family History Crohn's disease FATHER Diabetes mellitus MOTHER Hypertension SISTER Social History Smoking Status: Never Smoker Alcohol Use: none Drug Use: none Marital Status: in relationship Housing Status: lives with family, lives with significant other Occupation Status: employed, other Current/Historical Medications Scheduled Amlodipine Besylate (Amlodipine Besylate), 10 MG PO DAILY Calcium Acetate (Phoslo 667 Mg), 2,668 MG PO WM Calcium Acetate (Phoslo 667 Mg), 1,334 MG PO WITH SNACKS Calcium Carbonate (Tums), 1,500 MG PO HS Carvedilol (Coreg), 3.125 MG PO BID Escitalopram Oxalate (Escitalopram Oxalate), 20 MG PO QAM Famotidine (Pepcid), 40 MG PO QAM Fluticasone Propionate (Nasal) (Flonase Allergy Relief), 2 SPRAYS FRED DAILY Lisinopril (Lisinopril), 40 MG PO UD Mirtazapine (Remeron), 30 MG PO HS Trazodone Hcl (Trazodone), 50 MG PO HS Scheduled PRN Acetaminophen (Tylenol), 1,000 MG PO Q6H PRN for Pain Albuterol Hfa (Ventolin Hfa), 2 PUFFS INH QID PRN for SOB/Wheezing Allergies Coded Allergies: Cefaclor (Verified Allergy, Unknown, Rash, 02/21/17) Reported by PT. Amoxicillin (Verified Adverse Reaction, Unknown, VOMITING, 02/21/17) Clavulanic Acid (Verified Adverse Reaction, Unknown, VOMITING, 02/21/17) Physical Exam Vital Signs Date Time Temp Pulse Resp B/P (MAP) Pulse Ox O2 Delivery O2 Flow Rate FiO2 03/06/17 21:17 82 20 167/102 96 Room Air 03/06/17 20:17 83 16 158/98 97 Room Air 03/06/17 18:34 37.0 96 18 135/83 97 Room Air Physical Exam GENERAL: alert, well appearing, well nourished, no distress, non-toxic, obese EYE EXAM: normal conjunctiva, PERRL and EOM's grossly intact OROPHARYNX: no exudate, no erythema, lips, buccal mucosa, and tongue normal and mucous membranes are moist NECK: supple, no nuchal rigidity, no adenopathy, non-tender LUNGS: Clear to auscultation. Normal chest wall mechanics HEART: no murmurs, S1 normal and S2 normal ABDOMEN: abdomen soft, diffusely tender, normo-active bowel sounds, no masses, no rebound or guarding. BACK: Back is symmetrical on inspection and there is no deformity, no midline tenderness, no CVA tenderness. SKIN: no rashes and no bruising UPPER EXTREMITIES: upper extremities are grossly normal. Fistula in the left upper extremity with dressing in place, positive burry and thrill LOWER EXTREMITIES: No pitting edema. NEURO EXAM: Normal sensorium, cranial nerves II-XII grossly intact, normal speech, no gross weakness of arms, no gross weakness of legs. Medical Decision & Procedures ER Provider Diagnostic Interpretation: CT:Per my review, radiologist interpretation. CT OF THE ABDOMEN AND PELVIS WITHOUT CONTRAST CLINICAL HISTORY: Lower abd pain, recent placement of PD catheter and hernia repair. COMPARISON STUDY: CT of the abdomen and pelvis December 16, 2016 and right upper quadrant ultrasound December 17, 2016. TECHNIQUE: Axial images of the abdomen and pelvis were obtained without IV contrast. Images were reviewed in the axial, sagittal, and coronal planes. FINDINGS: Lung bases are clear. Visualized portions of the chest demonstrate mild to moderate cardiomegaly. No pneumatosis, free air or portal venous gas is present. Evaluation of the abdomen and pelvis is suboptimal on this unenhanced examination. There is no biliary ductal dilatation status post cholecystectomy. Unenhanced images of liver, spleen, adrenal glands are unremarkable. Both kidneys are atrophic, as before. An atrophic partially calcified right lower quadrant renal allograft is unchanged in appearance. The pancreas appears slightly enlarged with equivocal peripancreatic infiltration. There is no evidence for a bowel obstruction. The appendix is normal. There has been interval placement of a peritoneal dialysis catheter which terminates within the mid upper pelvis. Minimal infiltration and fluid within the subcutaneous tissues at the insertion site is likely within normal limits in the early post procedural setting. Irregularity with apparent erosions of both sacroiliac joints is noted. A slightly hyperdense left perirectal nodule shown on image 367 of 466 is unchanged. This may be congenital. IMPRESSION: 1. Interval placement of a peritoneal dialysis catheter which terminates within the upper pelvis. Minimal infiltration and small amount of fluid within the subcutaneous tissues adjacent to the catheter is not unexpected in the early postoperative setting. 2. No evidence for a bowel obstruction. 3. CT findings equivocal for acute pancreatitis. The findings could be correlated with biochemical evidence of acute pancreatitis. Electronically signed by: Sebastian Mcclain M.D. 03/06/2017 8:50 PM Dictated Date/Time: 03/06/2017 8:35 PM Laboratory Results 03/06/17 20:07 Red Blood Count 3.01, Mean Corpuscular Volume 99.3, Mean Corpuscular Hemoglobin 30.9, Mean Corpuscular Hemoglobin Concent 31.1, Mean Platelet Volume 9.4, Neutrophils (%) (Auto) 74.7, Lymphocytes (%) (Auto) 15.6, Monocytes (%) (Auto) 5.8, Eosinophils (%) (Auto) 3.5, Basophils (%) (Auto) 0.2, Neutrophils # (Auto) 4.49, Lymphocytes # (Auto) 0.94, Monocytes # (Auto) 0.35, Eosinophils # (Auto) 0.21, Basophils # (Auto) 0.01 03/06/17 20:07 Test 03/06/17 20:07 03/06/17 20:31 White Blood Count 6.01 K/uL (4.8-10.8) Red Blood Count 3.01 M/uL (4.2-5.4) Hemoglobin 9.3 g/dL (12.0-16.0) Hematocrit 29.9 % (37-47) Mean Corpuscular Volume 99.3 fL (80-100) Mean Corpuscular Hemoglobin 30.9 pg (25-34) Mean Corpuscular Hemoglobin Concent 31.1 g/dl (32-36) Platelet Count 159 K/uL (130-400) Mean Platelet Volume 9.4 fL (7.4-10.4) Neutrophils (%) (Auto) 74.7 % Lymphocytes (%) (Auto) 15.6 % Monocytes (%) (Auto) 5.8 % Eosinophils (%) (Auto) 3.5 % Basophils (%) (Auto) 0.2 % Neutrophils # (Auto) 4.49 K/uL (1.4-6.5) Lymphocytes # (Auto) 0.94 K/uL (1.2-3.4) Monocytes # (Auto) 0.35 K/uL (0.11-0.59) Eosinophils # (Auto) 0.21 K/uL (0-0.5) Basophils # (Auto) 0.01 K/uL (0-0.2) RDW Standard Deviation 55.9 fL (36.4-46.3) RDW Coefficient of Variation 15.6 % (11.5-14.5) Immature Granulocyte % (Auto) 0.2 % Immature Granulocyte # (Auto) 0.01 K/uL (0.00-0.02) Anion Gap 6.0 mmol/L (3-11) Est Creatinine Clear Calc Drug Dose 17.8 ml/min Estimated GFR () 12.4 Estimated GFR (Non- 10.7 BUN/Creatinine Ratio 4.5 (10-20) Calcium Level 8.6 mg/dl (8.5-10.1) Total Bilirubin 0.3 mg/dl (0.2-1) Aspartate Amino Transf (AST/SGOT) 14 U/L (15-37) Alanine Aminotransferase (ALT/SGPT) 20 U/L (12-78) Alkaline Phosphatase 73 U/L (45-117) Total Protein 7.5 gm/dl (6.4-8.2) Albumin 3.2 gm/dl (3.4-5.0) Globulin 4.3 gm/dl (2.5-4.0) Albumin/Globulin Ratio 0.7 (0.9-2) Lipase 935 U/L (73-393) Lactic Acid Level 0.8 mmol/L (0.4-2.0) Laboratory results per my review. Medications Administered Medications (Trade) Dose Ordered Sig/Sachin Route Start Time Stop Time Status Last Admin Dose Admin Morphine Sulfate (MoRPHine SULFATE INJ) 4 mg NOW STAT IV 03/06/17 19:42 03/06/17 19:45 DC 03/06/17 19:42 4 MG Ondansetron HCl (Zofran 8mg Iv) 8 mg NOW STAT IV 03/06/17 20:17 03/06/17 20:18 DC 03/06/17 20:17 8 MG Sodium Chloride 1,000 ml @ 250 mls/hr Q4H STAT IV 03/06/17 20:58 03/07/17 00:33 DC 03/06/17 21:15 250 MLS/HR Hydromorphone HCl (Dilaudid Inj) 1 mg STK-MED ONCE .ROUTE 03/06/17 21:11 03/06/17 21:12 DC 03/06/17 21:15 1 MG ED Course 1920: The patient was evaluated in room B12A. A complete history and physical exam was performed. 1941: Ordered Morphine Sulfate 4 mg IV 2016: Ordered Ondansetron HCl 8 mg IV 2057: Ordered Sodium Chloride 1000 ml @ 250 mls/hr IV 2110: Ordered Dilaudid Inj 1 mg .ROUTE 2144: Upon reevaluation, the patient is resting. I discussed the findings and the treatment plan with the patient. She expresses agreement and understanding. 2146: [facility] The patient will be evaluated for further treatment. Medical Decision Differential diagnoses includes but is not limited to gastritis, peptic ulcer disease, GERD, gallbladder disease, pancreatitis, small bowel obstruction, acute coronary syndrome, pericarditis, ischemic bowel, irritable bowel disease, irritable bowel syndrome, appendicitis, diverticulitis, malignancy, hernia, urinary tract infection, torsion, /ectopic (if female), perforation, trauma, infectious. Medication Reconciliation: I attest that I have personally reviewed the patient' s current medication list. Blood pressure screening: Patient was found to have an elevated blood pressure and was referred to their primary doctor for recheck and further treatment. Patient found to have pancreatitis both by labs and imaging. Likely patient's abdominal pain. Other lab abnormalities consistent with prior results. No evidence of acute, location related to recent catheter placement. Patient's vital signs stable and the emergency room, no evidence of bacteremia/sepsis. IV fluids and pain medication given and patient noted to hospitalist for additional monitoring and treatment. Patient aware of all results was agreeable with plan. Consults Time Called: 2144 Consulting Physician[facility] Returned Call: 2146 I discussed the patient's case with Rigo Argueta. The patient will be evaluated for further treatment. Impression Primary Impression: Pancreatitis Additional Impressions: Abdominal pain CKD (chronic kidney disease) stage V requiring chronic dialysis Obesity Scribe Attestation The scribe's documentation has been prepared under my direction and personally reviewed by me in its entirety. I confirm that the note above accurately reflects all work, treatment, procedures, and medical decision making performed by me. Departure Information Dispostion Being Evaluated By Hospitalist Adolph Landin M.D. (PCP) Patient Instructions My [facility] Problem Qualifiers Primary Impression: Pancreatitis Chronicity: acute Pancreatitis type: unspecified pancreatitis type Acute pancreatitis complication: no infection or necrosis Qualified Codes: K85.90 - Acute pancreatitis without necrosis or infection, unspecified Additional Impressions: Abdominal pain Abdominal location: generalized Qualified Codes: R10.84 - Generalized abdominal pain Obesity Obesity type: unspecified obesity type Obesity classification: unspecified obesity classification Serious obesity comorbidity presence: without serious comorbidity Qualified Codes: E66.9 - Obesity, unspecified
[2017-03-06] MEDS ORDERED: MoRPHine SULFATE 4 MG/ML 1 ML CARP IV STA (19:42)
[2017-03-06] MEDS ORDERED: CALC667C4 PO ×2 (19:56→21:12)
[2017-03-06] MEDS ORDERED: TRAZ50TA35 PO (19:56)
[2017-03-06] MEDS ORDERED: ONDANSETRON 8 MG/54 ML D5W IV STA (20:17)
[2017-03-06 20:23] LABS: BASO % 0.2 %; BASO ABS # 0.01 K/uL (0-0.2); COMPLETE YES; EOS % 3.5 %; HEMATOCRIT 29.9 % (37-47); IG% 0.2 %; LYMPH % 15.6 %; LYMPH ABS # 0.94 K/uL (1.2-3.4); MEAN CELL VOLUME 99.3 fL (80-100); MEAN CORPUSCULAR HEMOGLOBIN 30.9 pg (25-34); MEAN CORPUSCULAR HGB CONC 31.1 g/dl (32-36); MEAN PLATELET VOLUME 9.4 fL (7.4-10.4); MONO % 5.8 %; NEUT % 74.7 %; PLATELET COUNT 159 K/uL (130-400); RED BLOOD COUNT 3.01 M/uL (4.2-5.4); WHITE BLOOD COUNT 6.01 K/uL (4.8-10.8)
[2017-03-06 20:50] LABS: ALB/GLOB RATIO 0.7 (0.9-2); BUN/CREATININE RATIO 4.5 (10-20); CALCIUM 8.6 mg/dl (8.5-10.1); POTASSIUM 3.8 mmol/L (3.5-5.1)
--- NOTE | 2017-03-06 20:52 | DIAGNOSTIC IMAGING REPORT ---
CT OF THE ABDOMEN AND PELVIS WITHOUT CONTRAST CLINICAL HISTORY: Lower abd pain, recent placement of PD catheter and hernia repair. COMPARISON STUDY: CT of the abdomen and pelvis December 16, 2016 and right upper quadrant ultrasound December 17, 2016. TECHNIQUE: Axial images of the abdomen and pelvis were obtained without IV contrast. Images were reviewed in the axial, sagittal, and coronal planes. FINDINGS: Lung bases are clear. Visualized portions of the chest demonstrate mild to moderate cardiomegaly. No pneumatosis, free air or portal venous gas is present. Evaluation of the abdomen and pelvis is suboptimal on this unenhanced examination. There is no biliary ductal dilatation status post cholecystectomy. Unenhanced images of liver, spleen, adrenal glands are unremarkable. Both kidneys are atrophic, as before. An atrophic partially calcified right lower quadrant renal allograft is unchanged in appearance. The pancreas appears slightly enlarged with equivocal peripancreatic infiltration. There is no evidence for a bowel obstruction. The appendix is normal. There has been interval placement of a peritoneal dialysis catheter which terminates within the mid upper pelvis. Minimal infiltration and fluid within the subcutaneous tissues at the insertion site is likely within normal limits in the early post procedural setting. Irregularity with apparent erosions of both sacroiliac joints is noted. A slightly hyperdense left perirectal nodule shown on image 367 of 466 is unchanged. This may be congenital. IMPRESSION: 1. Interval placement of a peritoneal dialysis catheter which terminates within the upper pelvis. Minimal infiltration and small amount of fluid within the subcutaneous tissues adjacent to the catheter is not unexpected in the early postoperative setting. 2. No evidence for a bowel obstruction. 3. CT findings equivocal for acute pancreatitis. The findings could be correlated with biochemical evidence of acute pancreatitis. Electronically signed by: Sebastian Mcclain M.D. 03/06/2017 8:50 PM Dictated Date/Time: 03/06/2017 8:35 PM
[2017-03-06] MEDS ORDERED: SODIUM CHLORIDE 0.9% 1000ML 1,000 ML IV STA (20:58)
[2017-03-06] MEDS ORDERED: HYDROmorphone INJ 0.5 MG/0.5 ML SYR IV STA (20:58)
[2017-03-06] MEDS ORDERED: LXP/20 PO (21:08)
[2017-03-06] MEDS ORDERED: HYDROmorphone INJ 1 MG/ML SYR ONE (21:11)
[2017-03-06 22:09] VITALS: BP 167/102; PULSE 82; TEMP 37; O2SAT 96; Ht 167.6 cm; Wt 86.5 kg
[2017-03-06 22:50] VITALS: BP 147/88; PULSE 78; TEMP 37.1; O2SAT 96
[2017-03-06] MEDS ORDERED: FAMO40TA6 PO (23:12)
[2017-03-06 23:49] VITALS: BP 135/88; PULSE 77; TEMP 36.9; O2SAT 93
[2017-03-07] VITALS: O2SAT 96
[2017-03-07] MEDS ORDERED: PHARMACY GLYCEMIC MGMT CONSULT PRN (00:15)
[2017-03-07] MEDS ORDERED: GLUCAGON FOR INJ 1 MG VIAL SQ PRN (00:15)
[2017-03-07] MEDS ORDERED: GLUCOSE 10 TABS/TUBE PO PRN (00:15)
[2017-03-07] MEDS ORDERED: ACETAMINOPHEN 500 MG TAB PO PRN (00:15)
[2017-03-07] MEDS ORDERED: POLYETHYLENE (MIRALAX) 17 GM PACK PO PRN (00:15)
[2017-03-07] MEDS ORDERED: ALBUTEROL HFA 8 GM INHALER INH PRN (00:15)
[2017-03-07] MEDS ORDERED: GLUCOSE 40% GEL 15 GM TUBE PO PRN (00:15)
[2017-03-07] MEDS ORDERED: DEXTROSE 50% 50 ML SYR IV PRN (00:15)
[2017-03-07] MEDS: SODIUM CHLORIDE 0.9% 1000ML 1,000 ML IV SCH ×2 (00:23→06:27)
[2017-03-07] MEDS: HYDROCODONE/ACETAMINOPHEN 7.5/325MG TAB PO PRN ×4 (00:23→21:39)
[2017-03-07] MEDS ORDERED: CARVEDILOL 3.125 MG TAB PO STA (00:30)
[2017-03-07] MEDS ORDERED: CALCIUM CARBONATE 500 MG CHEWABLE PO STA (00:30)
[2017-03-07] MEDS ORDERED: MIRTAZAPINE TAB 15 MG TAB PO STA (00:31)
[2017-03-07] MEDS ORDERED: TRAZODONE HCL 50 MG TAB PO STA (00:32)
--- NOTE | 2017-03-07 00:34 | History and Physical ---
History & Physical Date & Time of Service: Mar 07, 2017 at 00:17 Chief Complaint: Abdominal Pain Primary Care Physician: Adolph Aldridge M.D. History of Present Illness Source: patient, clinic records, hospital records 31 yo F with ESRD on hemodialysis presents today with one day of cramping, severe abdominal pain. She was recently hospitalized 10 days ago for chest pain , which has resolved, and is not currently affecting her. She underwent insertion of a peritoneal dialysis catheter and repair of a small umbilical hernia on 02/21/[address] Claudio. She is s/p failed renal transplant and had a permcath in place with a failed fistula. She had a new fistula created and is now being placed on peritoneal dialysis. She has a h/o poor compliance with outpatient hemodialysis. She reports tolerating her full hemodialysis session today and started feeling abdominal cramping in her car. She drove to her grandmother's house where she felt she needed to urinate or have a BM, but this didn't make her feel better and her abdominal pain progressively became worse. She reports nausea developing without vomiting. She was unable to drive and had her fiance drive them home. At home she continued to feel poorly prompting her to come into the ER. Her surgical wound and catheter site do not appear infected with surgical site closed with dermabond. She denies any fevers or chills, no cough, sore throat or recent cold symptoms, no chest pain or shortness of breath. She does report a mils headache which she states is normal for her after dialysis. She denies UTI symptoms such as dysuria or urinary urgency. Her abdominal pain was improved with Dilaudid 1mg in the ER. Workup with CT revealed possible pancreatitis with expected post-op changes. Lipase was elevated and she had severe epigastric TTP on exam. She was admitted for treatment of acute pancreatitis. Past Medical/Surgical History Medical Problems: (1) CKD (chronic kidney disease) stage V requiring chronic dialysis Status: Chronic (2) DM2 (diabetes mellitus, type 2) Status: Chronic (3) Focal segmental glomerulosclerosis Status: Chronic (4) HTN (hypertension) Status: Chronic (5) Migraine Status: Chronic (6) Renal failure Permanent Comment: She has ESRD but is super non complaint with Dialysis. has missed dialysis for more than 2 weeks. As a result has lot of biochemical indicators of missing Dialysis--very lot Hgb, very low Calcium and very high BUn and creatinine. Because her BUN and creat is so high she is at risk for Dysequlibrium syndrome. So to avoid that will have to slow incremental dialysis. Will do 2hrs today, low qb dialysis. tomorrow will be 3 hrs and then Saturday will be 4 hrs. She is c/o Pain at the CVC site but it looks fine on exam and the Imaging. Will know further with Dialysis. I am surprised that despite such low Ca++ she still looks fine and no Symptoms. Status: Chronic Surgical Problems: (1) H/O knee surgery Status: Chronic (2) H/O tubal ligation Status: Chronic (3) H/O: Status: Chronic (4) Kidney transplant status, living related donor Status: Chronic Social History Problems: (1) Kidney transplanted Status: Chronic Family History Crohn's disease FATHER Diabetes mellitus MOTHER Hypertension SISTER Social History Smoking Status: Current Every Day Smoker Drug Use: none Marital Status: in relationship Housing status: lives with significant other Occupational Status: employed, other Immunizations History of Influenza Vaccine: Yes Influenza Vaccine Date: May 05, 2016 History of Tetanus Vaccine?: Yes Tetanus Immunization Date: Oct 09, 2011 History of Pneumococcal: Yes Pneumococcal Date: Dec 05, 2006 History of Hepatitis B Vaccine: Yes Hepatitis Immunization Date: May 21, 1998 Multi-Drug Resistant Organisms History of MDRO: No Allergies Coded Allergies: Cefaclor (Verified Allergy, Unknown, Rash, 02/21/17) Reported by PT. Amoxicillin (Verified Adverse Reaction, Unknown, VOMITING, 02/21/17) Clavulanic Acid (Verified Adverse Reaction, Unknown, VOMITING, 02/21/17) Home Medications Scheduled Amlodipine Besylate (Amlodipine Besylate), 10 MG PO DAILY Calcium Acetate (Phoslo 667 Mg), 2,668 MG PO WM Calcium Acetate (Phoslo 667 Mg), 1,334 MG PO WITH SNACKS Calcium Carbonate (Tums), 1,500 MG PO HS Carvedilol (Coreg), 3.125 MG PO BID Escitalopram Oxalate (Escitalopram Oxalate), 20 MG PO QAM Famotidine (Pepcid), 40 MG PO QAM Fluticasone Propionate (Nasal) (Flonase Allergy Relief), 2 SPRAYS FRED DAILY Lisinopril (Lisinopril), 40 MG PO UD Mirtazapine (Remeron), 30 MG PO HS Trazodone Hcl (Trazodone), 50 MG PO HS Scheduled PRN Acetaminophen (Tylenol), 1,000 MG PO Q6H PRN for Pain Albuterol Hfa (Ventolin Hfa), 2 PUFFS INH QID PRN for SOB/Wheezing Review of Systems At least ten systems were reviewed and negative except as indicated in HPI. Physical Exam Vital Signs Date Time Temp Pulse Resp B/P (MAP) Pulse Ox O2 Delivery O2 Flow Rate FiO2 03/06/17 23:49 36.9 77 20 135/88 (104) 93 Room Air 03/06/17 22:50 37.1 78 18 147/88 (107) 96 Room Air 03/06/17 22:09 37.0 82 20 167/102 96 Room Air 03/06/17 22:05 91 20 176/105 95 Room Air 03/06/17 21:17 82 20 167/102 96 Room Air 03/06/17 20:17 83 16 158/98 97 Room Air 03/06/17 18:34 37.0 96 18 135/83 97 Room Air GEN: WNWD, in no acute distress, alert and appropriate HEENT: NC/AT, PERRL, normal sclerae/conjunctivae, EOMI CARDIO: reg rate, S1/2 heard without m/g/r LUNGS: CTA bilaterally, no crackles, rales or wheezes, good diaphragmatic excursion ABD: soft, TTP in epigastric area, LLQ and suprapubic area. Non-distended. PD catheter in place with no erythema or drainage around insertion site. Vertical infraumbilical incision closed with Dermabond and well-healing. No erythema or drainage is present. EXTREMITY: RP and DP palpable 2+ bilat, no LE swelling or edema, extremities are warm and well-perfused NEURO: CN 2-12 grossly intact, sensation intact throughout MUSC: 5/5 strength throughout, no gross focal deficits SKIN: warm and dry and post-op changes as above. Diagnostics Laboratory Results 03/06/17 20:07 Red Blood Count 3.01, Mean Corpuscular Volume 99.3, Mean Corpuscular Hemoglobin 30.9, Mean Corpuscular Hemoglobin Concent 31.1, Mean Platelet Volume 9.4, Neutrophils (%) (Auto) 74.7, Lymphocytes (%) (Auto) 15.6, Monocytes (%) (Auto) 5.8, Eosinophils (%) (Auto) 3.5, Basophils (%) (Auto) 0.2, Neutrophils # (Auto) 4.49, Lymphocytes # (Auto) 0.94, Monocytes # (Auto) 0.35, Eosinophils # (Auto) 0.21, Basophils # (Auto) 0.01 03/06/17 20:07 Test 03/06/17 20:07 03/06/17 20:31 White Blood Count 6.01 K/uL (4.8-10.8) Red Blood Count 3.01 M/uL (4.2-5.4) Hemoglobin 9.3 g/dL (12.0-16.0) Hematocrit 29.9 % (37-47) Mean Corpuscular Volume 99.3 fL (80-100) Mean Corpuscular Hemoglobin 30.9 pg (25-34) Mean Corpuscular Hemoglobin Concent 31.1 g/dl (32-36) Platelet Count 159 K/uL (130-400) Mean Platelet Volume 9.4 fL (7.4-10.4) Neutrophils (%) (Auto) 74.7 % Lymphocytes (%) (Auto) 15.6 % Monocytes (%) (Auto) 5.8 % Eosinophils (%) (Auto) 3.5 % Basophils (%) (Auto) 0.2 % Neutrophils # (Auto) 4.49 K/uL (1.4-6.5) Lymphocytes # (Auto) 0.94 K/uL (1.2-3.4) Monocytes # (Auto) 0.35 K/uL (0.11-0.59) Eosinophils # (Auto) 0.21 K/uL (0-0.5) Basophils # (Auto) 0.01 K/uL (0-0.2) RDW Standard Deviation 55.9 fL (36.4-46.3) RDW Coefficient of Variation 15.6 % (11.5-14.5) Immature Granulocyte % (Auto) 0.2 % Immature Granulocyte # (Auto) 0.01 K/uL (0.00-0.02) Anion Gap 6.0 mmol/L (3-11) Est Creatinine Clear Calc Drug Dose 17.8 ml/min Estimated GFR () 12.4 Estimated GFR (Non- 10.7 BUN/Creatinine Ratio 4.5 (10-20) Calcium Level 8.6 mg/dl (8.5-10.1) Total Bilirubin 0.3 mg/dl (0.2-1) Aspartate Amino Transf (AST/SGOT) 14 U/L (15-37) Alanine Aminotransferase (ALT/SGPT) 20 U/L (12-78) Alkaline Phosphatase 73 U/L (45-117) Total Protein 7.5 gm/dl (6.4-8.2) Albumin 3.2 gm/dl (3.4-5.0) Globulin 4.3 gm/dl (2.5-4.0) Albumin/Globulin Ratio 0.7 (0.9-2) Lipase 935 U/L (73-393) Lactic Acid Level 0.8 mmol/L (0.4-2.0) Results Past 24 Hours Test 03/06/17 20:07 03/06/17 20:31 Range/Units White Blood Count 6.01 4.8-10.8 K/uL Red Blood Count 3.01 4.2-5.4 M/uL Hemoglobin 9.3 12.0-16.0 g/dL Hematocrit 29.9 37-47 % Mean Corpuscular Volume 99.3 80-100 fL Mean Corpuscular Hemoglobin 30.9 25-34 pg Mean Corpuscular Hemoglobin Concent 31.1 32-36 g/dl Platelet Count 159 130-400 K/uL Mean Platelet Volume 9.4 7.4-10.4 fL Neutrophils (%) (Auto) 74.7 % Lymphocytes (%) (Auto) 15.6 % Monocytes (%) (Auto) 5.8 % Eosinophils (%) (Auto) 3.5 % Basophils (%) (Auto) 0.2 % Neutrophils # (Auto) 4.49 1.4-6.5 K/uL Lymphocytes # (Auto) 0.94 1.2-3.4 K/uL Monocytes # (Auto) 0.35 0.11-0.59 K/uL Eosinophils # (Auto) 0.21 0-0.5 K/uL Basophils # (Auto) 0.01 0-0.2 K/uL RDW Standard Deviation 55.9 36.4-46.3 fL RDW Coefficient of Variation 15.6 11.5-14.5 % Immature Granulocyte % (Auto) 0.2 % Immature Granulocyte # (Auto) 0.01 0.00-0.02 K/uL Sodium Level 139 136-145 mmol/L Potassium Level 3.8 3.5-5.1 mmol/L Chloride Level 94 98-107 mmol/L Carbon Dioxide Level 39 21-32 mmol/L Anion Gap 6.0 3-11 mmol/L Blood Urea Nitrogen 23 7-18 mg/dl Creatinine 5.00 0.60-1.20 mg/dl Est Creatinine Clear Calc Drug Dose 17.8 ml/min Estimated GFR () 12.4 Estimated GFR (Non- 10.7 BUN/Creatinine Ratio 4.5 10-20 Random Glucose 91 70-99 mg/dl Calcium Level 8.6 8.5-10.1 mg/dl Total Bilirubin 0.3 0.2-1 mg/dl Aspartate Amino Transf (AST/SGOT) 14 15-37 U/L Alanine Aminotransferase (ALT/SGPT) 20 12-78 U/L Alkaline Phosphatase 73 45-117 U/L Total Protein 7.5 6.4-8.2 gm/dl Albumin 3.2 3.4-5.0 gm/dl Globulin 4.3 2.5-4.0 gm/dl Albumin/Globulin Ratio 0.7 0.9-2 Lipase 935 73-393 U/L Lactic Acid Level 0.8 0.4-2.0 mmol/L Diagnostic Radiology CT OF THE ABDOMEN AND PELVIS WITHOUT CONTRAST CLINICAL HISTORY: Lower abd pain, recent placement of PD catheter and hernia repair. COMPARISON STUDY: CT of the abdomen and pelvis December 16, 2016 and right upper quadrant ultrasound December 17, 2016. TECHNIQUE: Axial images of the abdomen and pelvis were obtained without IV contrast. Images were reviewed in the axial, sagittal, and coronal planes. FINDINGS: Lung bases are clear. Visualized portions of the chest demonstrate mild to moderate cardiomegaly. No pneumatosis, free air or portal venous gas is present. Evaluation of the abdomen and pelvis is suboptimal on this unenhanced examination. There is no biliary ductal dilatation status post cholecystectomy. Unenhanced images of liver, spleen, adrenal glands are unremarkable. Both kidneys are atrophic, as before. An atrophic partially calcified right lower quadrant renal allograft is unchanged in appearance. The pancreas appears slightly enlarged with equivocal peripancreatic infiltration. There is no evidence for a bowel obstruction. The appendix is normal. There has been interval placement of a peritoneal dialysis catheter which terminates within the mid upper pelvis. Minimal infiltration and fluid within the subcutaneous tissues at the insertion site is likely within normal limits in the early post procedural setting. Irregularity with apparent erosions of both sacroiliac joints is noted. A slightly hyperdense left perirectal nodule shown on image 367 of [id number] is unchanged. This may be congenital. IMPRESSION: 1. Interval placement of a peritoneal dialysis catheter which terminates within the upper pelvis. Minimal infiltration and small amount of fluid within the subcutaneous tissues adjacent to the catheter is not unexpected in the early postoperative setting. 2. No evidence for a bowel obstruction. 3. CT findings equivocal for acute pancreatitis. The findings could be correlated with biochemical evidence of acute pancreatitis. Impression Assessment and Plan 31 yo ESRD renal transplant patient s/p PD catheter placement two weeks ago who presents with acute abdominal pain 1. Abdominal pain-described as crampy and associated with an intolerance of PO. Epigastric tenderness to palpation on exam and lipase in >900. She completed full HD treatment yesterday prior to feeling ill. Possible etiologies include but not limited to hypotension during HD, trazodone, lisinopril, renal failure. Started IVF to prevent dehydration. Consulted Nephrology and kept all current medications until they can evaluate her further. Obviously, she is recently post-op and infection is a possibility, however, she denies any pain around the catheter or incision site and she is afebrile with her surgical wounds appearing well-healed. CT scan a/p as above. Pain meds as needed. 2. ESRD-on HD and just finished full treatment today. Consulting Nephro to continue HD as inpatient. She has catheter in place for PD, however, with abdominal issues will likely cont HD preferentially. Cont Phoslo and Calcium supplementation 3. HTN-controlled, cont home meds including lisinopril 40mg and Coreg 3.125mg PO BID. 4. Depression-stable and appears uplifted by the idea of home PD, excited to get her catheter in place and bandages off recently. Cont Lexapro 5. DMII-ISS/Lantus per algorithm. Consulted inpatient glycemic pharmacist. ADA/renal diet. DVT proph-heparin SQ Full code Dispo-med/surg DO [facility] Advanced Directives Existing Living Will: No Existing Power of Reservations And Ticketing Agent: No VTE Prophylaxis VTE Risk Assessment Done? Y/N: Yes Risk Level: Moderate Given or contraindicated: Unfractionated heparin SQ
[2017-03-07] MEDS: HYDROmorphone INJ 0.5 MG/0.5 ML SYR IV PRN ×5 (02:07→23:27)
[2017-03-07 04:00] VITALS: BP 150/88; PULSE 71; TEMP 36.7; O2SAT 93
[2017-03-07] MEDS: HEPARIN SOD 5000 UNIT/0.5 ML CARP SQ SCH ×3 (05:58→21:34)
[2017-03-07] MEDS: INSULIN ASPART 100 UNITS/ML 3 ML PEN SC SCH ×4 (06:30→21:33)
[2017-03-07 07:02] VITALS: BP 134/79; PULSE 66; TEMP 36.7; O2SAT 97
[2017-03-07] MEDS ORDERED: CALCIUM ACETATE 667MG GELCAP PO PRN (08:00)
[2017-03-07] MEDS: FLUTICASONE PROPIONATE NA SPR 16 GM BTL NAE SCH (08:10)
[2017-03-07] MEDS: ESCITALOPRAM OXALATE 20 MG TAB PO SCH (08:11)
[2017-03-07] MEDS: CALCIUM ACETATE 667MG GELCAP PO SCH ×3 (08:11→17:42)
[2017-03-07] MEDS: FAMOTIDINE 20 MG TAB PO SCH (08:11)
[2017-03-07] MEDS: CARVEDILOL 3.125 MG TAB PO SCH ×2 (08:11→21:38)
[2017-03-07] MEDS: AMLODIPINE BESYLATE 5 MG TAB PO SCH (08:12)
[2017-03-07] MEDS ORDERED: INSULIN GLARGINE SOLOSTAR 100 UNITS/ML 3 ML PEN SC SCH (09:00)
[2017-03-07 09:15] LABS: MANUAL MICROSCOPIC REQUIRED? NO; REVIEW REQ? NO; URINE APPEARANCE CLEAR (CLEAR); URINE BILIRUBIN NEG (NEG); URINE COLOR YELLOW; URINE EPITHELIAL CELL AUTO >30 /lpf (0-5); URINE NITRITE NEG (NEG); URINE PH >= 9.0 (4.5-7.5); URINE SPECIFIC GRAVITY 1.008 (1.000-1.030); UROBILINOGEN NEG (NEG)
[2017-03-07 09:18] LABS: SULFASALICYLIC ACID POS (NEG)
--- NOTE | 2017-03-07 11:58 | Pharmacy Progress Note ---
Glycemic Control Intl Consult Date of Service Mar 07, 2017. Scope Glycemic Pharmacist consulted by Dr Glover on 03/07/2017 for glycemic control and to write orders per [facility] inpatient glycemic control protocol Objective Weight (Kilograms): 85.500 Accuchecks BSG (last 24hrs): Test 03/06/17 20:07 Random Glucose 91 mg/dl (70-99) Laboratory Data (last 24hrs) Test 03/06/17 20:07 Anion Gap 6.0 mmol/L BUN/Creatinine Ratio 4.5 Blood Urea Nitrogen 23 mg/dl Creatinine 5.00 mg/dl Potassium Level 3.8 mmol/L Sodium Level 139 mmol/L White Blood Count 6.01 K/uL Red Blood Count 3.01 M/uL Hemoglobin 9.3 g/dL Hematocrit 29.9 % Mean Corpuscular Volume 99.3 fL Mean Corpuscular Hemoglobin 30.9 pg Mean Corpuscular Hemoglobin Concent 31.1 g/dl Platelet Count 159 K/uL Mean Platelet Volume 9.4 fL Neutrophils (%) (Auto) 74.7 % Lymphocytes (%) (Auto) 15.6 % Monocytes (%) (Auto) 5.8 % Eosinophils (%) (Auto) 3.5 % Basophils (%) (Auto) 0.2 % Neutrophils # (Auto) 4.49 K/uL Lymphocytes # (Auto) 0.94 K/uL Monocytes # (Auto) 0.35 K/uL Eosinophils # (Auto) 0.21 K/uL Basophils # (Auto) 0.01 K/uL Recent Pertinent Medications Outpatient Anti-diabetic Regimen: * none * A1c = 5.0 % 01/23/2017 --> may not be reflective of true glycemic management as patient is a hemodialysis patient The patient is currently receiving: * Correctional Insulin: Novolog Correction per scale ACHS Goal Range: Low 100 mg/dL - High 140 mg/dL Correction Factor: 50 mg/dL/unit * Prandial insulin: Per carb ratio of 1 unit per 17 grams CHO consumed Risk Factors for Insulin Resistance: * Infection: pancreatitis, no antibiotics ordered * Recent Surgery: 02/21/17 --> insertion of peritoneal dialysis port * Diet: clear liquid, type 2 diabetic Assessment & Plan ASSESSMENT: * ADA & AACE recommend a goal blood sugar range 140-180 mg/dl for the majority of critically ill & non-critically ill patients. However, more stringent targets may be selected in individual cases. Will utilize more stringent goal of 120-160 mg/dl based on patient age & comorbidities. Additionally, tighter glycemic control is warranted to facilitate pancreatitis resolution. * Ms Arguello is a 31 y/o F who is admitted with acute pancreatitis. She has a PMH of CKD stage 5 requiring hemodialysis (received a kidney transplant but this was rejected), hypertension, and migraines. There is a history of non- compliance with hemodialysis. She is expected to change to peritoneal dialysis. * During her most recent admission this year, Ms Arguello was placed on correctional insulin with only a correction factor. She received no insulin. As only correction factors are not to be utilized in patients, a carbohydrate ratio was added this hospitalization. In order to ensure no the patient does not receive too much insulin, the goal range was increased to 120-160 mg/dL prophylactically. PLAN FOR INPATIENT GLYCEMIC CONTROL: * Correctional Insulin with NOVOLOG per scale ACHS * Goal Range: Low 120 mg/dL - High 160 mg/dL * Correction Factor: 50 mg/dL/unit * Nutritional / Prandial insulin per carb ratio of 1 unit per 17 grams CHO consumed Recommendations for Discharge * Patient's glycemic control cannot be determined from HbA1C. Recommend follow- up as an outpatient to determine glycemic control through blood sugar logs. * Please note that the plan above was derived based on current level of insulin resistance and hospital stress. These recommendations are appropriate for inpatient admission only. Plan of care upon discharge will need to be reassessed to avoid potential outpatient hypo/hyperglycemia. Thank you.
[2017-03-07] MEDS: ONDANSETRON INJ 2 MG/ML 2 ML VIAL IV PRN (13:11)
--- NOTE | 2017-03-07 13:14 | Progress Note ---
Internal Med Progress Note Date of Service: Mar 07, 2017. Provider Documentation: SUBJECTIVE: The patient was sen and examined Symptomatically a lot better No more nausea and no vomiting Abdominal pain is better too OBJECTIVE: Vital Signs-as noted below Exam: General-No distress at rest Eyes-normal ENT-normal Neck-supple Lungs-clear to ausucltate bilaterally Heart-Regular,no murmur Abdomen-Soft,benign,minimally tender to palpate,Peritoneal cath and hernia Surgery sites are OK-No infection and or inflammation Extremities-negative Neuro-AAOx3 Lab data as noted below. ASSESSMENT & PLAN: Abdominal pain with Nausea -Cause unknown but symptoms started after HD -described as crampy and associated with an intolerance of PO. -associated with epigastric pain -Nausea but no vomiting and or disrrhea -No fever,chills -Peritoneal Catheter site and Hernia Surgery sites are OK-no inflammation and or infection -symptomatically a lot better this morning -will observe ESRD on HD S/P Peritoneal catheter placement Consulting Nephro to continue HD as inpatient. She has catheter in place for PD, however, with abdominal issues will likely cont HD preferentially. Cont Phoslo and Calcium supplementation HTN-controlled, cont home meds including lisinopril 40mg and Coreg 3.125mg PO BID. BP remains controlled Depression-stable and appears uplifted by the idea of home PD, excited to get her catheter in place and bandages off recently. Cont Lexapro DMII-ISS/Lantus per algorithm. Consulted inpatient glycemic pharmacist. ADA/renal diet. DVT proph-heparin SQ Full code DISPOSITION Likely discharge tomorrow Vital Signs: Date Time Temp Pulse Resp B/P (MAP) Pulse Ox O2 Delivery O2 Flow Rate FiO2 03/07/17 08:00 Room Air 03/07/17 07:02 36.7 66 18 134/79 (97) 97 Room Air 03/07/17 04:00 36.7 71 16 150/88 (108) 93 Room Air 03/07/17 00:00 96 Room Air 03/06/17 23:49 36.9 77 20 135/88 (104) 93 Room Air 03/06/17 22:50 37.1 78 18 147/88 (107) 96 Room Air 03/06/17 22:09 37.0 82 20 167/102 96 Room Air 03/06/17 22:05 91 20 176/105 95 Room Air 03/06/17 21:17 82 20 167/102 96 Room Air 03/06/17 20:17 83 16 158/98 97 Room Air 03/06/17 18:34 37.0 96 18 135/83 97 Room Air Lab Results: Results Past 24 Hours Test 03/06/17 20:07 03/06/17 20:31 03/07/17 09:00 03/07/17 11:43 Range/Units White Blood Count 6.01 4.8-10.8 K/uL Red Blood Count 3.01 4.2-5.4 M/uL Hemoglobin 9.3 12.0-16.0 g/dL Hematocrit 29.9 37-47 % Mean Corpuscular Volume 99.3 80-100 fL Mean Corpuscular Hemoglobin 30.9 25-34 pg Mean Corpuscular Hemoglobin Concent 31.1 32-36 g/dl Platelet Count 159 130-400 K/uL Mean Platelet Volume 9.4 7.4-10.4 fL Neutrophils (%) (Auto) 74.7 % Lymphocytes (%) (Auto) 15.6 % Monocytes (%) (Auto) 5.8 % Eosinophils (%) (Auto) 3.5 % Basophils (%) (Auto) 0.2 % Neutrophils # (Auto) 4.49 1.4-6.5 K/uL Lymphocytes # (Auto) 0.94 1.2-3.4 K/uL Monocytes # (Auto) 0.35 0.11-0.59 K/uL Eosinophils # (Auto) 0.21 0-0.5 K/uL Basophils # (Auto) 0.01 0-0.2 K/uL RDW Standard Deviation 55.9 36.4-46.3 fL RDW Coefficient of Variation 15.6 11.5-14.5 % Immature Granulocyte % (Auto) 0.2 % Immature Granulocyte # (Auto) 0.01 0.00-0.02 K/uL Sodium Level 139 136-145 mmol/L Potassium Level 3.8 3.5-5.1 mmol/L Chloride Level 94 98-107 mmol/L Carbon Dioxide Level 39 21-32 mmol/L Anion Gap 6.0 3-11 mmol/L Blood Urea Nitrogen 23 7-18 mg/dl Creatinine 5.00 0.60-1.20 mg/dl Est Creatinine Clear Calc Drug Dose 17.8 ml/min Estimated GFR () 12.4 Estimated GFR (Non- 10.7 BUN/Creatinine Ratio 4.5 10-20 Random Glucose 91 70-99 mg/dl Calcium Level 8.6 8.5-10.1 mg/dl Total Bilirubin 0.3 0.2-1 mg/dl Aspartate Amino Transf (AST/SGOT) 14 15-37 U/L Alanine Aminotransferase (ALT/SGPT) 20 12-78 U/L Alkaline Phosphatase 73 45-117 U/L Total Protein 7.5 6.4-8.2 gm/dl Albumin 3.2 3.4-5.0 gm/dl Globulin 4.3 2.5-4.0 gm/dl Albumin/Globulin Ratio 0.7 0.9-2 Lipase 935 73-393 U/L Lactic Acid Level 0.8 0.4-2.0 mmol/L Urine Color YELLOW Urine Appearance CLEAR CLEAR Urine pH >= 9.0 4.5-7.5 Urine Specific [place] 1.008 1.000-1.030 Urine Protein 2+ NEG Urine Glucose (UA) TRACE NEG Urine Ketones NEG NEG Urine Occult Blood NEG NEG Urine Nitrite NEG NEG Urine Bilirubin NEG NEG Urine Urobilinogen NEG NEG Urine Leukocyte Esterase NEG NEG Urine WBC (Auto) 1-5 0-5 /hpf Urine RBC (Auto) 0-4 0-4 /hpf Urine Hyaline Casts (Auto) 0 0-5 /lpf Urine Epithelial Cells (Auto) >30 0-5 /lpf Urine Bacteria (Auto) NEG NEG Bedside Glucose 78 70-90 mg/dl Microbiology Results 03/07/17 Urine Culture, Received Pending
[2017-03-07] MEDS ORDERED: LISINOPRIL 40 MG TAB PO SCH (15:00)
--- NOTE | 2017-03-07 15:26 | Nephrology Consultation ---
Nephrology Consultation Date of Consultation: Mar 07, 2017. Attending Physician: Valente Reason for Consultation: ESRD History of Present Illness Patient is a 31 year old female who dialyzes at the [facility] on and has a history of non-compliance however over the past couple of months is much more compliant with medications and attendance to dialysis and overall doing much better psychologically. pt doing so well that we are planning on transitioning her to peritoneal dialysis and had a recent pd catheter placed by Dr. Claudio. pt did have two recent admissions with chest pain and underwent cardiac cath which was not impressive. trying to control bp better at the outpt unit. pt underwent dialysis yesterday and went well with no cramping or issues on dialysis. On the way home from dialysis, started to develop abdominal pain and found to have a pancreatitis. given iv fluids last night and now on clear liquid diet. still with nausea and abdominal pain. Past Medical/Surgical History Medical Problems: (1) Acute chest pain Status: Acute (2) Acute electrocardiogram changes Status: Acute (3) Acute hyperkalemia Status: Acute (4) Altered mental status Status: Acute (5) Anemia Status: Acute (6) ARF (acute renal failure) Status: Acute (7) Arm pain, left Status: Acute (8) Arm pain, left Status: Acute (9) Back pain Status: Acute (10) Cellulitis Status: Acute (11) Cellulitis of left upper extremity Status: Acute (12) Cholecystitis Status: Acute (13) CKD (chronic kidney disease) stage V requiring chronic dialysis Status: Chronic (14) Complications, dialysis, catheter, mechanical Status: Acute (15) Costochondritis Status: Acute (16) Dependence on renal dialysis Status: Acute (17) End stage renal disease Status: Acute (18) Epigastric abdominal pain Status: Acute (19) ESRD (end stage renal disease) on dialysis Status: Acute (20) Headache Status: Acute (21) Hypocalcemia Status: Acute (22) Hypocalcemia Permanent Comment: She has severe Critical hypocalcemia from missing Dialysis for so long. Will give 4gm ivpb now. with dialysis it should improve further. Status: Acute (23) Non-cardiac chest pain Status: Acute (24) Obesity Status: Acute (25) Otitis media Status: Acute (26) Pancreatitis Status: Acute (27) Precordial chest pain Status: Acute (28) Renal failure Status: Acute (29) Renal failure Permanent Comment: She has ESRD but is super non complaint with Dialysis. has missed dialysis for more than 2 weeks. As a result has lot of biochemical indicators of missing Dialysis--very lot Hgb, very low Calcium and very high BUn and creatinine. Because her BUN and creat is so high she is at risk for Dysequlibrium syndrome. So to avoid that will have to slow incremental dialysis. Will do 2hrs today, low qb dialysis. tomorrow will be 3 hrs and then Saturday will be 4 hrs. She is c/o Pain at the CVC site but it looks fine on exam and the Imaging. Will know further with Dialysis. I am surprised that despite such low Ca++ she still looks fine and no Symptoms. Status: Chronic (30) Severe anemia Status: Acute (31) Sinusitis Status: Acute (32) Sinusitis Status: Acute (33) Substernal chest pain Status: Acute (34) Substernal chest pain Status: Acute ESRD tunneled line fistula placement pd catheter placement htn diabetes failed kidney transplant tubal ligation Family History Crohn's disease FATHER Diabetes mellitus MOTHER Hypertension SISTER Social History Smoking Status: Current Every Day Smoker Alcohol Use: none Drug Use: none Marital Status: in relationship Housing Status: lives with family, lives with significant other Occupation Status: employed, other Allergies Coded Allergies: Cefaclor (Verified Allergy, Unknown, Rash, 02/21/17) Reported by PT. Amoxicillin (Verified Adverse Reaction, Unknown, VOMITING, 02/21/17) Clavulanic Acid (Verified Adverse Reaction, Unknown, VOMITING, 02/21/17) Medications Current Inpatient Medications Medications (Trade) Dose Ordered Sig/Sachin Route Start Time Stop Time Status Last Admin Dose Admin Heparin Sodium (Porcine) (Heparin Sq 5000 Unit/0.5ml) 5,000 unit Q8H SQ 03/07/17 06:00 04/06/17 05:59 03/07/17 05:58 5,000 UNIT Polyethylene (Miralax Powder Packet) 17 gm DAILY PRN PO 03/07/17 00:15 04/06/17 00:14 Ondansetron HCl (Zofran Inj) 4 mg Q6H PRN IV 03/07/17 00:15 04/06/17 00:14 03/07/17 13:11 4 MG Insulin Aspart (novoLOG ASPART) SLIDING SCALE If C... ACHS SC 03/07/17 06:30 04/06/17 06:29 Glucose (Glucose 40% Gel) 15-30 GRAMS 15 GRAMS... UD PRN PO 03/07/17 00:15 04/06/17 00:14 Glucose (Glucose Chew Tab) 4-8 Tablets 4 Tabl... UD PRN PO 03/07/17 00:15 04/06/17 00:14 Dextrose (Dextrose 50% 50ML Syringe) 25-50ML OF 50% DW IV FOR... UD PRN IV 03/07/17 00:15 04/06/17 00:14 Glucagon (Glucagon Inj) 1 mg UD PRN SQ 03/07/17 00:15 04/06/17 00:14 Miscellaneous Information (Consult Glycemic Management Pharmacy) 1 ea DAILY PRN N/A 03/07/17 00:15 04/06/17 00:14 Acetaminophen/ Hydrocodone Bitart ([place] 7.5/325 Tab) 1 tab Q6H PRN PO 03/07/17 00:15 03/21/17 00:14 03/07/17 13:12 1 TAB Hydromorphone HCl (Dilaudid Inj) 0.5 mg Q4H PRN IV 03/07/17 00:15 03/21/17 00:14 03/07/17 14:36 0.5 MG Acetaminophen (Tylenol Tab) 1,000 mg Q6H PRN PO 03/07/17 00:15 04/06/17 00:14 Albuterol (Ventolin Hfa Inhaler) 2 puffs QID PRN INH 03/07/17 00:15 04/06/17 00:14 Calcium Acetate (Phoslo Cap) 1,334 mg TIDM PRN PO 03/07/17 08:00 04/06/17 07:59 Calcium Acetate (Phoslo Cap) 2,668 mg TIDM PO 03/07/17 08:00 04/06/17 07:59 03/07/17 12:16 2,668 MG Calcium Carbonate (Tums Chew Tab) 1,500 mg HS PO 03/07/17 22:00 04/06/17 21:59 Carvedilol (Coreg Tab) 3.125 mg BID PO 03/07/17 08:00 8/12/17 07:59 03/07/17 08:11 3.125 MG Escitalopram Oxalate (Lexapro Tab) 20 mg QAM PO 03/07/17 08:00 04/06/17 07:59 03/07/17 08:11 20 MG Famotidine (Pepcid Tab) 40 mg QAM PO 03/07/17 08:00 04/06/17 07:59 03/07/17 08:11 40 MG Fluticasone Propionate (Flonase Nasal [place]) 2 sprays DAILY FRED 03/07/17 08:00 04/06/17 07:59 03/07/17 08:10 2 SPRAYS Lisinopril (Zestril Tab) 40 mg MoWeFr@1530 PO 03/08/17 15:30 04/07/17 15:29 Mirtazapine (Remeron Tab) 30 mg HS PO 03/07/17 22:00 04/06/17 21:59 Trazodone HCl (Desyrel Tab) 50 mg HS PO 03/07/17 22:00 04/06/17 21:59 Amlodipine Besylate (Norvasc Tab) 10 mg QAM PO 03/07/17 08:00 04/06/17 07:59 03/07/17 08:12 10 MG Lisinopril (Zestril Tab) 40 mg SuTuThSa@0800 PO 03/07/17 15:00 04/06/17 14:59 Home Meds and Scripts Medications Dose Route/Sig Max Daily Dose Days Date Category Dose Instructions Tylenol (Acetaminophen) 500 Mg Tab 1,000 Mg PO Q6H PRN 03/06/17 Reported Lisinopril 40 Mg Tab 40 Mg PO UD 03/06/17 Reported TAKE ONE TABLET EVERY MORNING ON NON DIALYSIS DAYS AND ON DAYS OF DIALYSIS TAKE ONE TABLET DAILY IN THE AFTERNOON Amlodipine Besylate 10 Mg Tab 10 Mg PO DAILY 03/06/17 Reported Flonase Allergy Relief (Fluticasone Propionate (Nasal)) 50 Mcg/Act Spr 2 Sprays FRED DAILY 02/14/17 Reported Coreg (Carvedilol) 3.125 Mg Tab 3.125 Mg PO BID 02/09/17 Reported Pepcid (Famotidine) 40 Mg Tab 40 Mg PO QAM 01/22/17 Reported Tums (Calcium Carbonate) 500 Mg Chew 1,500 Mg PO HS 01/19/17 Reported Phoslo 667 Mg (Calcium Acetate) 667 Mg Cap 1,334 Mg PO WITH SNACKS 12/02/16 Reported TAKE 2 CAPSULES WITH SNACKS Escitalopram Oxalate 20 Mg Tab 20 Mg PO QAM 12/02/16 Reported Trazodone (Trazodone HCl) 50 Mg Tab 50 Mg PO HS 11/18/16 Reported Phoslo 667 Mg (Calcium Acetate) 667 Mg Cap 2,668 Mg PO WM 11/18/16 Reported TAKE 4 CAPSULES WITH MEALS Remeron (Mirtazapine) 30 Mg Tab 30 Mg PO HS 08/24/16 Reported Ventolin Hfa (Albuterol) 200 Puffs/96909 Mcg Aers 2 Puffs INH QID PRN 07/05/16 Reported Review of Systems Constitutional: No fever, No chills Eyes: No worsening of vision ENT: No sore throat Respiratory: No cough, No shortness of breath Cardiac: No chest pain Abdomen: + pain, + nausea, + vomiting Musculoskeletal: No joint pain Female : No dysuria Neuro: + weakness Endo: + fatigue Skin: No rash, No itch all other review of systems otherwise negative Physical Exam Date Time Temp Pulse Resp B/P (MAP) Pulse Ox O2 Delivery O2 Flow Rate FiO2 03/07/17 08:00 Room Air 03/07/17 07:02 36.7 66 18 134/79 (97) 97 Room Air 03/07/17 04:00 36.7 71 16 150/88 (108) 93 Room Air 03/07/17 00:00 96 Room Air 03/06/17 23:49 36.9 77 20 135/88 (104) 93 Room Air 03/06/17 22:50 37.1 78 18 147/88 (107) 96 Room Air 03/06/17 22:09 37.0 82 20 167/102 96 Room Air 03/06/17 22:05 91 20 176/105 95 Room Air 03/06/17 21:17 82 20 167/102 96 Room Air 03/06/17 20:17 83 16 158/98 97 Room Air 03/06/17 18:34 37.0 96 18 135/83 97 Room Air 24-Hour Column 03/08/17 08:00 Intake Total 180 ml Balance 180 ml General Appearance: no apparent distress Eyes: normal inspection ENT: normal ENT inspection Neck: supple, no JVD Respiratory/Chest: lungs clear Cardiovascular: regular rate, rhythm, no edema Abdomen: normal bowel sounds, soft, + tenderness, + pertinent finding (+pd catheter) Extremities: no pedal edema Neurologic/Psych: no motor/sensory deficits, alert, oriented x 3 Skin: normal color, no rash Diagnostics Last 24 Hours Test 03/06/17 20:07 03/06/17 20:31 03/07/17 09:00 03/07/17 11:43 White Blood Count 6.01 K/uL Red Blood Count 3.01 M/uL Hemoglobin 9.3 g/dL Hematocrit 29.9 % Mean Corpuscular Volume 99.3 fL Mean Corpuscular Hemoglobin 30.9 pg Mean Corpuscular Hemoglobin Concent 31.1 g/dl Platelet Count 159 K/uL Mean Platelet Volume 9.4 fL Neutrophils (%) (Auto) 74.7 % Lymphocytes (%) (Auto) 15.6 % Monocytes (%) (Auto) 5.8 % Eosinophils (%) (Auto) 3.5 % Basophils (%) (Auto) 0.2 % Neutrophils # (Auto) 4.49 K/uL Lymphocytes # (Auto) 0.94 K/uL Monocytes # (Auto) 0.35 K/uL Eosinophils # (Auto) 0.21 K/uL Basophils # (Auto) 0.01 K/uL RDW Standard Deviation 55.9 fL RDW Coefficient of Variation 15.6 % Immature Granulocyte % (Auto) 0.2 % Immature Granulocyte # (Auto) 0.01 K/uL Sodium Level 139 mmol/L Potassium Level 3.8 mmol/L Chloride Level 94 mmol/L Carbon Dioxide Level 39 mmol/L Anion Gap 6.0 mmol/L Blood Urea Nitrogen 23 mg/dl Creatinine 5.00 mg/dl Est Creatinine Clear Calc Drug Dose 17.8 ml/min Estimated GFR () 12.4 Estimated GFR (Non- 10.7 BUN/Creatinine Ratio 4.5 Random Glucose 91 mg/dl Calcium Level 8.6 mg/dl Total Bilirubin 0.3 mg/dl Aspartate Amino Transf (AST/SGOT) 14 U/L Alanine Aminotransferase (ALT/SGPT) 20 U/L Alkaline Phosphatase 73 U/L Total Protein 7.5 gm/dl Albumin 3.2 gm/dl Globulin 4.3 gm/dl Albumin/Globulin Ratio 0.7 Lipase 935 U/L Lactic Acid Level 0.8 mmol/L Urine Color YELLOW Urine Appearance CLEAR Urine pH >= 9.0 Urine Specific [place] 1.008 Urine Protein 2+ Urine Glucose (UA) TRACE Urine Ketones NEG Urine Occult Blood NEG Urine Nitrite NEG Urine Bilirubin NEG Urine Urobilinogen NEG Urine Leukocyte Esterase NEG Urine WBC (Auto) 1-5 /hpf Urine RBC (Auto) 0-4 /hpf Urine Hyaline Casts (Auto) 0 /lpf Urine Epithelial Cells (Auto) >30 /lpf Urine Bacteria (Auto) NEG Bedside Glucose 78 mg/dl Assessment & Plan ESRD-plan on dialysis tomorrow to continue the schedule Anemia of Renal Failure-give procrit prn on dialysis for goal hg of 10 to 11 Access-has new pd catheter, monitor. may ask adeneran to evaluate catheter since she was supposed to see him today in clinic.
[2017-03-07 16:17] VITALS: BP 149/83; PULSE 76; TEMP 36.6; O2SAT 96
[2017-03-07 21:37] VITALS: BP 163/91; PULSE 73
[2017-03-07] MEDS ORDERED: TRAZODONE HCL 50 MG TAB PO SCH (22:00)
[2017-03-07] MEDS ORDERED: CALCIUM CARBONATE 500 MG CHEWABLE PO SCH (22:00)
[2017-03-07] MEDS ORDERED: MIRTAZAPINE TAB 15 MG TAB PO SCH (22:00)
[2017-03-07 23:45] VITALS: BP 158/99; PULSE 69; TEMP 36.6; O2SAT 96
[2017-03-08] VITALS (18 sets, daily range): BP systolic 132–166; BP diastolic 80–104; PULSE 68–75; TEMP 36.6–37.1; O2SAT 93–97
[2017-03-08] MEDS: HYDROCODONE/ACETAMINOPHEN 7.5/325MG TAB PO PRN ×2 (04:55→12:36)
[2017-03-08] MEDS: HEPARIN SOD 5000 UNIT/0.5 ML CARP SQ SCH ×2 (06:00→13:12)
[2017-03-08] MEDS ORDERED: EPOETIN ALFA 10,000 UNITS/ML VIAL IV. SCH (07:30)
[2017-03-08] MEDS: HYDROmorphone INJ 0.5 MG/0.5 ML SYR IV PRN (07:32)
[2017-03-08] MEDS: FAMOTIDINE 20 MG TAB PO SCH (07:34)
[2017-03-08] MEDS: ESCITALOPRAM OXALATE 20 MG TAB PO SCH (07:34)
[2017-03-08] MEDS: CARVEDILOL 3.125 MG TAB PO SCH (07:34)
[2017-03-08] MEDS: AMLODIPINE BESYLATE 5 MG TAB PO SCH (07:34)
[2017-03-08] MEDS: CALCIUM ACETATE 667MG GELCAP PO SCH ×2 (07:35→12:36)
[2017-03-08] MEDS: FLUTICASONE PROPIONATE NA SPR 16 GM BTL NAE SCH (07:35)
[2017-03-08] MEDS: INSULIN ASPART 100 UNITS/ML 3 ML PEN SC SCH ×2 (08:45→11:38)
--- NOTE | 2017-03-08 10:02 | Pharmacy Progress Note ---
Pharmacy Glycemic Sign Off Nt Date of Service Mar 08, 2017. Assessment & Plan ASSESSMENT: * Pharmacy was consulted by Dr Glover on 03/07 for glycemic control and to write orders per [facility] inpatient glycemic control protocol. * Major changes made by pharmacy to antidiabetic regimen include: * Adding Novolog w/ CF and CR * Patient has been receiving/requiring 0 units of insulin per day for adequate glycemic control * BSGs ranging 72- 86 mg/dl * Regimen has only required minor adjustments over the past 48hrs to achieve this level of control * Do not anticipate further changes in patient status that would quickly deteriorate glycemic control (i.e. patient to be NPO for upcoming procedure, steroids tapering, starting tube feedings, etc). * Please see recommendations for outpatient antidiabetic regimen below. PLAN FOR INPATIENT GLYCEMIC CONTROL: * Continue NovoLog per scale ACHS/Q6hrs while NPO * Goal range = 120- 160 mg/dl * CF = 50 mg/dl/unit * REMOVE carb ratio (patient refused dose w/ lunch yesterday and postprandial BSG was not elevated) * Pharmacy is signing off of glycemic consult and will no longer be making adjustments to inpatient regimen. Please feel free to re-consult if needed. Thank you. DISCHARGE RECOMMENDATIONS: * No need to start diabetes agents upon discharge
[2017-03-08] MEDS: ONDANSETRON INJ 2 MG/ML 2 ML VIAL IV PRN (12:48)
--- NOTE | 2017-03-08 13:19 | Dialysis Progress Note ---
Nephrology Dialysis Note Date of Service: Mar 08, 2017. Subjective 31 yo female with esrd who presented with pancreatitis, recent pd catheter placement. has some abdominal tenderness and still on liquid diet. Objective Date Time Temp Pulse Resp B/P (MAP) Pulse Ox O2 Delivery O2 Flow Rate FiO2 03/08/17 12:21 37.1 75 133/85 (101) 03/08/17 11:45 74 154/90 03/08/17 11:30 73 142/88 03/08/17 11:15 74 145/87 03/08/17 11:00 75 144/89 03/08/17 10:45 72 132/95 03/08/17 10:30 71 137/89 03/08/17 10:15 68 142/85 03/08/17 10:00 70 146/99 03/08/17 09:45 73 154/90 03/08/17 09:30 73 143/93 03/08/17 09:15 75 144/80 03/08/17 09:01 75 157/98 03/08/17 08:53 37.0 74 162/95 (117) 03/08/17 08:00 Room Air 03/08/17 07:26 36.8 74 16 149/93 (111) 97 Room Air 03/08/17 04:00 36.7 74 18 166/104 (124) 93 Room Air 03/08/17 00:00 36.6 69 18 158/99 (118) 96 Room Air 03/08/17 00:00 Room Air 03/07/17 23:45 36.6 69 18 158/99 (118) 96 Room Air 03/07/17 21:37 73 163/91 (115) 03/07/17 16:17 36.6 76 18 149/83 (105) 96 Room Air 03/07/17 16:00 Room Air Physical Exam: General-aaox3 Eyes-no scleral icterus ENT-mmm Neck-supple Lungs-cta Heart-rrr Abdomen-mild tenderness, no guarding, +pd catheter placement Extremities-no c/c/e Neuro-nonfocal Current Inpatient Medications Medications (Trade) Dose Ordered Sig/Sachin Route Start Time Stop Time Status Last Admin Dose Admin Heparin Sodium (Porcine) (Heparin Sq 5000 Unit/0.5ml) 5,000 unit Q8H SQ 03/07/17 06:00 04/06/17 05:59 03/07/17 05:58 5,000 UNIT Polyethylene (Miralax Powder Packet) 17 gm DAILY PRN PO 03/07/17 00:15 04/06/17 00:14 Ondansetron HCl (Zofran Inj) 4 mg Q6H PRN IV 03/07/17 00:15 04/06/17 00:14 03/08/17 12:48 4 MG Insulin Aspart (novoLOG ASPART) SLIDING SCALE If C... ACHS SC 03/07/17 06:30 04/06/17 06:29 Glucose (Glucose 40% Gel) 15-30 GRAMS 15 GRAMS... UD PRN PO 03/07/17 00:15 04/06/17 00:14 Glucose (Glucose Chew Tab) 4-8 Tablets 4 Tabl... UD PRN PO 03/07/17 00:15 04/06/17 00:14 Dextrose (Dextrose 50% 50ML Syringe) 25-50ML OF 50% DW IV FOR... UD PRN IV 03/07/17 00:15 04/06/17 00:14 Glucagon (Glucagon Inj) 1 mg UD PRN SQ 03/07/17 00:15 04/06/17 00:14 Acetaminophen/ Hydrocodone Bitart ([place] 7.5/325 Tab) 1 tab Q6H PRN PO 03/07/17 00:15 03/21/17 00:14 03/08/17 12:36 1 TAB Hydromorphone HCl (Dilaudid Inj) 0.5 mg Q4H PRN IV 03/07/17 00:15 03/21/17 00:14 03/08/17 07:32 0.5 MG Acetaminophen (Tylenol Tab) 1,000 mg Q6H PRN PO 03/07/17 00:15 04/06/17 00:14 Albuterol (Ventolin Hfa Inhaler) 2 puffs QID PRN INH 03/07/17 00:15 04/06/17 00:14 Calcium Acetate (Phoslo Cap) 1,334 mg TIDM PRN PO 03/07/17 08:00 04/06/17 07:59 Calcium Acetate (Phoslo Cap) 2,668 mg TIDM PO 03/07/17 08:00 04/06/17 07:59 7/14/17 12:36 2,668 MG Calcium Carbonate (Tums Chew Tab) 1,500 mg HS PO 03/07/17 22:00 04/06/17 21:59 03/07/17 21:40 1,500 MG Carvedilol (Coreg Tab) 3.125 mg BID PO 03/07/17 08:00 04/06/17 07:59 03/08/17 07:34 3.125 MG Escitalopram Oxalate (Lexapro Tab) 20 mg QAM PO 03/07/17 08:00 04/06/17 07:59 03/08/17 07:34 20 MG Famotidine (Pepcid Tab) 40 mg QAM PO 03/07/17 08:00 04/06/17 07:59 03/08/17 07:34 40 MG Fluticasone Propionate (Flonase Nasal [place]) 2 sprays DAILY FRED 03/07/17 08:00 04/06/17 07:59 03/08/17 07:35 2 SPRAYS Lisinopril (Zestril Tab) 40 mg MoWeFr@1530 PO 03/08/17 15:30 04/07/17 15:29 Mirtazapine (Remeron Tab) 30 mg HS PO 03/07/17 22:00 04/06/17 21:59 03/07/17 21:39 30 MG Trazodone HCl (Desyrel Tab) 50 mg HS PO 03/07/17 22:00 04/06/17 21:59 03/07/17 21:38 50 MG Amlodipine Besylate (Norvasc Tab) 10 mg QAM PO 03/07/17 08:00 04/06/17 07:59 03/08/17 07:34 10 MG Lisinopril (Zestril Tab) 40 mg SuTuThSa@0800 PO 03/07/17 15:00 04/06/17 14:59 03/07/17 16:59 40 MG Diphenhydramine HCl (Benadryl Cap) 25 mg Q6H PRN PO 03/07/17 16:30 04/06/17 16:29 03/08/17 07:37 25 MG Epoetin [place] (Procrit Inj) 10,000 units 0730 IV. 03/08/17 07:30 03/08/17 14:00 03/08/17 09:45 10,000 UNITS Last 24 Hours Test 03/07/17 16:38 03/07/17 20:20 03/08/17 07:40 03/08/17 11:23 Bedside Glucose 81 mg/dl 86 mg/dl 77 mg/dl 73 mg/dl Assessment & Plan ESRD-seen on dialysis today. minimal uf today with poor appetite and resolving pancreatitis. would like to keep her on the wet side. breathing well. on 3k bath. Anemia of Renal Failure-give procrit prn on dialysis for goal hg of 10 to 11 Access-has new pd catheter, does not appear infected.
[2017-03-08] MEDS ORDERED: ALUMINUM/MAGNESIUM SUSP 30 ML UDC PO ONE (14:32)
--- NOTE | 2017-03-08 14:37 | Progress Note ---
Internal Med Progress Note Date of Service: Mar 08, 2017. Provider Documentation: SUBJECTIVE: The patient was sen and examined Symptomatically a lot better No more nausea and no vomiting Abdominal pain is a little worse today Nausea but no vomiting OBJECTIVE: Vital Signs-as noted below Exam: General-No distress at rest Eyes-normal ENT-normal Neck-supple Lungs-clear to ausucltate bilaterally Heart-Regular,no murmur Abdomen-Soft,benign,minimally tender to palpate,Peritoneal cath and hernia Surgery sites are OK-No infection and or inflammation Extremities-negative Neuro-AAOx3 Lab data as noted below. ASSESSMENT & PLAN: Abdominal pain with Nausea -Cause unknown but symptoms started after HD -described as crampy and associated with an intolerance of PO. -associated with epigastric pain -Nausea but no vomiting and or disrrhea -No fever,chills -Peritoneal Catheter site and Hernia Surgery sites are OK-no inflammation and or infection -symptomatically a lot better -tolerating regular diet -will try Zofran ODT and Tums PRN and send home today -discharge home today ESRD on HD S/P Peritoneal catheter placement Consulting Nephro to continue HD as inpatient. She has catheter in place for PD, however, with abdominal issues will likely cont HD preferentially. Cont Phoslo and Calcium supplementation Continue HD HTN-controlled, cont home meds including lisinopril 40mg and Coreg 3.125mg PO BID. BP remains controlled Depression-stable and appears uplifted by the idea of home PD, excited to get her catheter in place and bandages off recently. Cont Lexapro DMII-ISS/Lantus per algorithm. Consulted inpatient glycemic pharmacist. ADA/renal diet. DVT proph-heparin SQ Full code DISPOSITION Likely discharge today Vital Signs: Date Time Temp Pulse Resp B/P (MAP) Pulse Ox O2 Delivery O2 Flow Rate FiO2 03/08/17 12:21 37.1 75 133/85 (101) 03/08/17 11:45 74 154/90 03/08/17 11:30 73 142/88 03/08/17 11:15 74 145/87 03/08/17 11:00 75 144/89 03/08/17 10:45 72 132/95 03/08/17 10:30 71 137/89 03/08/17 10:15 68 142/85 03/08/17 10:00 70 146/99 03/08/17 09:45 73 154/90 03/08/17 09:30 73 143/93 03/08/17 09:15 75 144/80 03/08/17 09:01 75 157/98 03/08/17 08:53 37.0 74 162/95 (117) 03/08/17 08:00 Room Air 03/08/17 07:26 36.8 74 16 149/93 (111) 97 Room Air 03/08/17 04:00 36.7 74 18 166/104 (124) 93 Room Air 03/08/17 00:00 36.6 69 18 158/99 (118) 96 Room Air 03/08/17 00:00 Room Air 03/07/17 23:45 36.6 69 18 158/99 (118) 96 Room Air 03/07/17 21:37 73 163/91 (115) 03/07/17 16:17 36.6 76 18 149/83 (105) 96 Room Air 03/07/17 16:00 Room Air Lab Results: Results Past 24 Hours Test 03/07/17 16:38 03/07/17 20:20 03/08/17 07:40 03/08/17 11:23 Range/Units Bedside Glucose 81 86 77 73 70-90 mg/dl
[2017-03-08] MEDS ORDERED: ALUMINUM/MAGNESIUM SUSP 30 ML UDC PO PRN (14:45)
[2017-03-08] MEDS ORDERED: ONDANSETRON 4MG OD TAB PO PRN (14:45)
[2017-03-08] MEDS ORDERED: LISINOPRIL 40 MG TAB PO SCH (15:30)
[2017-03-08] MEDS ORDERED: ZFRODT4HP PO (15:53)
--- NOTE | 2017-03-08 15:55 | Discharge Instructions ---
Discharge Instructions Date of Service Mar 08, 2017. Admission Reason for Admission: Abdominal Pain Discharge Discharge Diagnosis / Problem: Nausea ,Epigastric pain,ESRD on HD Discharge Goals Goal(s): Prevent Disease Progression Activity Recommendations Activity Limitations: resume your previous activity . Instructions / Follow-Up Instructions / Follow-Up Dr Aldridge on 03/14/17 at 11AM Current Hospital Diet Patient's current hospital diet: Diabetes Type 2 Diet, Renal Diet Discharge Diet Recommended Diet: Diabetes Type 2 Diet, Renal Diet Pending Studies Studies pending at discharge: no Laboratory Results Hemoglobin A1c Test 01/23/17 04:25 Range/Units Estimated Average Glucose 97 mg/dl Hemoglobin A1c 5.0 4.5-5.6 % Medical Emergencies . Who to Call and When: Medical Emergencies: If at any time you feel your situation is an emergency, please call 911 immediately. . Non-Emergent Contact Non-Emergency issues call your: Primary Care Provider . Past History Medical & Surgical History: (1) Abdominal pain (2) Focal segmental glomerulosclerosis (3) DM2 (diabetes mellitus, type 2) (4) HTN (hypertension) (5) CKD (chronic kidney disease) stage V requiring chronic dialysis (6) Kidney transplant status, living related donor (7) H/O knee surgery (8) H/O: (9) H/O tubal ligation . "Provider Documentation" section prepared by Juan Victor. . VTE Core Measure Inpt VTE Proph given/why not?: Unfractionated heparin SQ
--- NOTE | 2017-03-08 18:45 | Discharge Summary ---
Discharge Summary Date of Service Mar 08, 2017. Discharge Summary Admission Date: Mar 06, 2017 at 21:47 Discharge Date: Mar 08, 2017 Discharge Disposition: Home Principal Diagnosis: Nausea ,Epigastric pain,ESRD on HD Secondary Diagnoses/Problems: Please see H&P and Hospital Progress note Consultations: Nephrology Medication Reconciliation New Medications: Ondansetron (Ondansetron Odt) 1 Homepack Ea 4 MG PO Q4H PRN for Nausea for 3 Days, #1 EA Continued Medications: Acetaminophen (Tylenol) 500 Mg Tab 1000 MG PO Q6H PRN for Pain, TAB Albuterol Hfa (Ventolin Hfa) 200 Puffs/19193 Mcg Aers 2 PUFFS INH QID PRN for SOB/Wheezing, INHALER Amlodipine Besylate (Amlodipine Besylate) 10 Mg Tab 10 MG PO DAILY Calcium Acetate (Phoslo 667 Mg) 667 Mg Cap 2668 MG PO WM, CAP TAKE 4 CAPSULES WITH MEALS Calcium Acetate (Phoslo 667 Mg) 667 Mg Cap 1334 MG PO WITH SNACKS, CAP TAKE 2 CAPSULES WITH SNACKS Calcium Carbonate (Tums) 500 Mg Chew 1500 MG PO HS Carvedilol (Coreg) 3.125 Mg Tab 3.125 MG PO BID Escitalopram Oxalate (Escitalopram Oxalate) 20 Mg Tab 20 MG PO QAM Famotidine (Pepcid) 40 Mg Tab 40 MG PO QAM, TAB Fluticasone Propionate (Nasal) (Flonase Allergy Relief) 50 Mcg/Act Spr 2 SPRAYS FRED DAILY Lisinopril (Lisinopril) 40 Mg Tab 40 MG PO UD TAKE ONE TABLET EVERY MORNING ON NON DIALYSIS DAYS AND ON DAYS OF DIALYSIS TAKE ONE TABLET DAILY IN THE AFTERNOON Mirtazapine (Remeron) 30 Mg Tab 30 MG PO HS Trazodone Hcl (Trazodone) 50 Mg Tab 50 MG PO HS, TAB Admission Information HPI (per Admitting provider): 31 yo F with ESRD on hemodialysis presents today with one day of cramping, severe abdominal pain. She was recently hospitalized 10 days ago for chest pain , which has resolved, and is not currently affecting her. She underwent insertion of a peritoneal dialysis catheter and repair of a small umbilical hernia on 02/21/[address] Claudio. She is s/p failed renal transplant and had a permcath in place with a failed fistula. She had a new fistula created and is now being placed on peritoneal dialysis. She has a h/o poor compliance with outpatient hemodialysis. She reports tolerating her full hemodialysis session today and started feeling abdominal cramping in her car. She drove to her grandmother's house where she felt she needed to urinate or have a BM, but this didn't make her feel better and her abdominal pain progressively became worse. She reports nausea developing without vomiting. She was unable to drive and had her fiance drive them home. At home she continued to feel poorly prompting her to come into the ER. Her surgical wound and catheter site do not appear infected with surgical site closed with dermabond. She denies any fevers or chills, no cough, sore throat or recent cold symptoms, no chest pain or shortness of breath. She does report a mils headache which she states is normal for her after dialysis. She denies UTI symptoms such as dysuria or urinary urgency. Her abdominal pain was improved with Dilaudid 1mg in the ER. Workup with CT revealed possible pancreatitis with expected post-op changes. Lipase was elevated and she had severe epigastric TTP on exam. She was admitted for treatment of acute pancreatitis. Past Medical/Surgical History Medical Problems: (1) CKD (chronic kidney disease) stage V requiring chronic dialysis Status: Chronic (2) DM2 (diabetes mellitus, type 2) Status: Chronic (3) Focal segmental glomerulosclerosis Status: Chronic (4) HTN (hypertension) Status: Chronic (5) Migraine Status: Chronic (6) Renal failure Permanent Comment: She has ESRD but is super non complaint with Dialysis. has missed dialysis for more than 2 weeks. As a result has lot of biochemical indicators of missing Dialysis--very lot Hgb, very low Calcium and very high BUn and creatinine. Because her BUN and creat is so high she is at risk for Dysequlibrium syndrome. So to avoid that will have to slow incremental dialysis. Will do 2hrs today, low qb dialysis. tomorrow will be 3 hrs and then Saturday will be 4 hrs. She is c/o Pain at the CVC site but it looks fine on exam and the Imaging. Will know further with Dialysis. I am surprised that despite such low Ca++ she still looks fine and no Symptoms. Status: Chronic Surgical Problems: (1) H/O knee surgery Status: Chronic (2) H/O tubal ligation Status: Chronic (3) H/O: Status: Chronic (4) Kidney transplant status, living related donor Status: Chronic Social History Problems: (1) Kidney transplanted Status: Chronic Family History Crohn's disease FATHER Diabetes mellitus MOTHER Hypertension SISTER Social History Smoking Status: Current Every Day Smoker Drug Use: none Marital Status: in relationship Housing status: lives with significant other Occupational Status: employed, other Immunizations History of Influenza Vaccine: Yes Influenza Vaccine Date: May 05, 2016 History of Tetanus Vaccine?: Yes Tetanus Immunization Date: Oct 09, 2011 History of Pneumococcal: Yes Pneumococcal Date: Dec 05, 2006 History of Hepatitis B Vaccine: Yes Hepatitis Immunization Date: May 21, 1998 Multi-Drug Resistant Organisms History of MDRO: No Allergies Coded Allergies: Cefaclor (Verified Allergy, Unknown, Rash, 02/21/17) Reported by PT. Amoxicillin (Verified Adverse Reaction, Unknown, VOMITING, 02/21/17) Clavulanic Acid (Verified Adverse Reaction, Unknown, VOMITING, 02/21/17) Home Medications Scheduled Amlodipine Besylate (Amlodipine Besylate), 10 MG PO DAILY Calcium Acetate (Phoslo 667 Mg), 2,668 MG PO WM Calcium Acetate (Phoslo 667 Mg), 1,334 MG PO WITH SNACKS Calcium Carbonate (Tums), 1,500 MG PO HS Carvedilol (Coreg), 3.125 MG PO BID Escitalopram Oxalate (Escitalopram Oxalate), 20 MG PO QAM Famotidine (Pepcid), 40 MG PO QAM Fluticasone Propionate (Nasal) (Flonase Allergy Relief), 2 SPRAYS FRED DAILY Lisinopril (Lisinopril), 40 MG PO UD Mirtazapine (Remeron), 30 MG PO HS Trazodone Hcl (Trazodone), 50 MG PO HS Scheduled PRN Acetaminophen (Tylenol), 1,000 MG PO Q6H PRN for Pain Albuterol Hfa (Ventolin Hfa), 2 PUFFS INH QID PRN for SOB/Wheezing Review of Systems At least ten systems were reviewed and negative except as indicated in HPI. Physical Ex - H&P Physical Exam Vital Signs Date Time Temp Pulse Resp B/P (MAP) Pulse Ox O2 Delivery O2 Flow Rate FiO2 03/06/17 23:49 36.9 77 20 135/88 (104) 93 Room Air 03/06/17 22:50 37.1 78 18 147/88 (107) 96 Room Air 03/06/17 22:09 37.0 82 20 167/102 96 Room Air 03/06/17 22:05 91 20 176/105 95 Room Air 03/06/17 21:17 82 20 167/102 96 Room Air 03/06/17 20:17 83 16 158/98 97 Room Air 03/06/17 18:34 37.0 96 18 135/83 97 Room Air GEN: WNWD, in no acute distress, alert and appropriate HEENT: NC/AT, PERRL, normal sclerae/conjunctivae, EOMI CARDIO: reg rate, S1/2 heard without m/g/r LUNGS: CTA bilaterally, no crackles, rales or wheezes, good diaphragmatic excursion ABD: soft, TTP in epigastric area, LLQ and suprapubic area. Non-distended. PD catheter in place with no erythema or drainage around insertion site. Vertical infraumbilical incision closed with Dermabond and well-healing. No erythema or drainage is present. EXTREMITY: RP and DP palpable 2+ bilat, no LE swelling or edema, extremities are warm and well-perfused NEURO: CN 2-12 grossly intact, sensation intact throughout MUSC: 5/5 strength throughout, no gross focal deficits SKIN: warm and dry and post-op changes as above. Diagnostics - H&P Diagnostics Laboratory Results 03/06/17 20:07 Red Blood Count 3.01, Mean Corpuscular Volume 99.3, Mean Corpuscular Hemoglobin 30.9, Mean Corpuscular Hemoglobin Concent 31.1, Mean Platelet Volume 9.4, Neutrophils (%) (Auto) 74.7, Lymphocytes (%) (Auto) 15.6, Monocytes (%) (Auto) 5.8, Eosinophils (%) (Auto) 3.5, Basophils (%) (Auto) 0.2, Neutrophils # (Auto) 4.49, Lymphocytes # (Auto) 0.94, Monocytes # (Auto) 0.35, Eosinophils # (Auto) 0.21, Basophils # (Auto) 0.01 03/06/17 20:07 Test 03/06/17 20:07 03/06/17 20:31 White Blood Count 6.01 K/uL (4.8-10.8) Red Blood Count 3.01 M/uL (4.2-5.4) Hemoglobin 9.3 g/dL (12.0-16.0) Hematocrit 29.9 % (37-47) Mean Corpuscular Volume 99.3 fL (80-100) Mean Corpuscular Hemoglobin 30.9 pg (25-34) Mean Corpuscular Hemoglobin Concent 31.1 g/dl (32-36) Platelet Count 159 K/uL (130-400) Mean Platelet Volume 9.4 fL (7.4-10.4) Neutrophils (%) (Auto) 74.7 % Lymphocytes (%) (Auto) 15.6 % Monocytes (%) (Auto) 5.8 % Eosinophils (%) (Auto) 3.5 % Basophils (%) (Auto) 0.2 % Neutrophils # (Auto) 4.49 K/uL (1.4-6.5) Lymphocytes # (Auto) 0.94 K/uL (1.2-3.4) Monocytes # (Auto) 0.35 K/uL (0.11-0.59) Eosinophils # (Auto) 0.21 K/uL (0-0.5) Basophils # (Auto) 0.01 K/uL (0-0.2) RDW Standard Deviation 55.9 fL (36.4-46.3) RDW Coefficient of Variation 15.6 % (11.5-14.5) Immature Granulocyte % (Auto) 0.2 % Immature Granulocyte # (Auto) 0.01 K/uL (0.00-0.02) Anion Gap 6.0 mmol/L (3-11) Est Creatinine Clear Calc Drug Dose 17.8 ml/min Estimated GFR () 12.4 Estimated GFR (Non- 10.7 BUN/Creatinine Ratio 4.5 (10-20) Calcium Level 8.6 mg/dl (8.5-10.1) Total Bilirubin 0.3 mg/dl (0.2-1) Aspartate Amino Transf (AST/SGOT) 14 U/L (15-37) Alanine Aminotransferase (ALT/SGPT) 20 U/L (12-78) Alkaline Phosphatase 73 U/L (45-117) Total Protein 7.5 gm/dl (6.4-8.2) Albumin 3.2 gm/dl (3.4-5.0) Globulin 4.3 gm/dl (2.5-4.0) Albumin/Globulin Ratio 0.7 (0.9-2) Lipase 935 U/L (73-393) Lactic Acid Level 0.8 mmol/L (0.4-2.0) Results Past 24 Hours Test 03/06/17 20:07 03/06/17 20:31 Range/Units White Blood Count 6.01 4.8-10.8 K/uL Red Blood Count 3.01 4.2-5.4 M/uL Hemoglobin 9.3 12.0-16.0 g/dL Hematocrit 29.9 37-47 % Mean Corpuscular Volume 99.3 80-100 fL Mean Corpuscular Hemoglobin 30.9 25-34 pg Mean Corpuscular Hemoglobin Concent 31.1 32-36 g/dl Platelet Count 159 130-400 K/uL Mean Platelet Volume 9.4 7.4-10.4 fL Neutrophils (%) (Auto) 74.7 % Lymphocytes (%) (Auto) 15.6 % Monocytes (%) (Auto) 5.8 % Eosinophils (%) (Auto) 3.5 % Basophils (%) (Auto) 0.2 % Neutrophils # (Auto) 4.49 1.4-6.5 K/uL Lymphocytes # (Auto) 0.94 1.2-3.4 K/uL Monocytes # (Auto) 0.35 0.11-0.59 K/uL Eosinophils # (Auto) 0.21 0-0.5 K/uL Basophils # (Auto) 0.01 0-0.2 K/uL RDW Standard Deviation 55.9 36.4-46.3 fL RDW Coefficient of Variation 15.6 11.5-14.5 % Immature Granulocyte % (Auto) 0.2 % Immature Granulocyte # (Auto) 0.01 0.00-0.02 K/uL Sodium Level 139 136-145 mmol/L Potassium Level 3.8 3.5-5.1 mmol/L Chloride Level 94 98-107 mmol/L Carbon Dioxide Level 39 21-32 mmol/L Anion Gap 6.0 3-11 mmol/L Blood Urea Nitrogen 23 7-18 mg/dl Creatinine 5.00 0.60-1.20 mg/dl Est Creatinine Clear Calc Drug Dose 17.8 ml/min Estimated GFR () 12.4 Estimated GFR (Non- 10.7 BUN/Creatinine Ratio 4.5 10-20 Random Glucose 91 70-99 mg/dl Calcium Level 8.6 8.5-10.1 mg/dl Total Bilirubin 0.3 0.2-1 mg/dl Aspartate Amino Transf (AST/SGOT) 14 15-37 U/L Alanine Aminotransferase (ALT/SGPT) 20 12-78 U/L Alkaline Phosphatase 73 45-117 U/L Total Protein 7.5 6.4-8.2 gm/dl Albumin 3.2 3.4-5.0 gm/dl Globulin 4.3 2.5-4.0 gm/dl Albumin/Globulin Ratio 0.7 0.9-2 Lipase 935 73-393 U/L Lactic Acid Level 0.8 0.4-2.0 mmol/L Diagnostic Radiology CT OF THE ABDOMEN AND PELVIS WITHOUT CONTRAST CLINICAL HISTORY: Lower abd pain, recent placement of PD catheter and hernia repair. COMPARISON STUDY: CT of the abdomen and pelvis December 16, 2016 and right upper quadrant ultrasound December 17, 2016. TECHNIQUE: Axial images of the abdomen and pelvis were obtained without IV contrast. Images were reviewed in the axial, sagittal, and coronal planes. FINDINGS: Lung bases are clear. Visualized portions of the chest demonstrate mild to moderate cardiomegaly. No pneumatosis, free air or portal venous gas is present. Evaluation of the abdomen and pelvis is suboptimal on this unenhanced examination. There is no biliary ductal dilatation status post cholecystectomy. Unenhanced images of liver, spleen, adrenal glands are unremarkable. Both kidneys are atrophic, as before. An atrophic partially calcified right lower quadrant renal allograft is unchanged in appearance. The pancreas appears slightly enlarged with equivocal peripancreatic infiltration. There is no evidence for a bowel obstruction. The appendix is normal. There has been interval placement of a peritoneal dialysis catheter which terminates within the mid upper pelvis. Minimal infiltration and fluid within the subcutaneous tissues at the insertion site is likely within normal limits in the early post procedural setting. Irregularity with apparent erosions of both sacroiliac joints is noted. A slightly hyperdense left perirectal nodule shown on image 367 of [id number] is unchanged. This may be congenital. IMPRESSION: 1. Interval placement of a peritoneal dialysis catheter which terminates within the upper pelvis. Minimal infiltration and small amount of fluid within the subcutaneous tissues adjacent to the catheter is not unexpected in the early postoperative setting. 2. No evidence for a bowel obstruction. 3. CT findings equivocal for acute pancreatitis. The findings could be correlated with biochemical evidence of acute pancreatitis. Impression - H&P Impression Assessment and Plan 31 yo ESRD renal transplant patient s/p PD catheter placement two weeks ago who presents with acute abdominal pain 1. Abdominal pain-described as crampy and associated with an intolerance of PO. Epigastric tenderness to palpation on exam and lipase in >900. She completed full HD treatment yesterday prior to feeling ill. Possible etiologies include but not limited to hypotension during HD, trazodone, lisinopril, renal failure. Started IVF to prevent dehydration. Consulted Nephrology and kept all current medications until they can evaluate her further. Obviously, she is recently post-op and infection is a possibility, however, she denies any pain around the catheter or incision site and she is afebrile with her surgical wounds appearing well-healed. CT scan a/p as above. Pain meds as needed. 2. ESRD-on HD and just finished full treatment today. Consulting Nephro to continue HD as inpatient. She has catheter in place for PD, however, with abdominal issues will likely cont HD preferentially. Cont Phoslo and Calcium supplementation 3. HTN-controlled, cont home meds including lisinopril 40mg and Coreg 3.125mg PO BID. 4. Depression-stable and appears uplifted by the idea of home PD, excited to get her catheter in place and bandages off recently. Cont Lexapro 5. DMII-ISS/Lantus per algorithm. Consulted inpatient glycemic pharmacist. ADA/renal diet. DVT proph-heparin SQ Full code Dispo-med/surg Ragini Glover DO [facility] Hospitalist Advanced Directives Existing Living Will: No Existing Power of Rn Forensic: No VTE Prophylaxis VTE Risk Assessment Done? Y/N: Yes Risk Level: Moderate Given or contraindicated: Unfractionated heparin SQ Physical Exam (per Admitting): GEN: WNWD, in no acute distress, alert and appropriate HEENT: NC/AT, PERRL, normal sclerae/conjunctivae, EOMI CARDIO: reg rate, S1/2 heard without m/g/r LUNGS: CTA bilaterally, no crackles, rales or wheezes, good diaphragmatic excursion ABD: soft, TTP in epigastric area, LLQ and suprapubic area. Non-distended. PD catheter in place with no erythema or drainage around insertion site. Vertical infraumbilical incision closed with Dermabond and well-healing. No erythema or drainage is present. EXTREMITY: RP and DP palpable 2+ bilat, no LE swelling or edema, extremities are warm and well-perfused NEURO: CN 2-12 grossly intact, sensation intact throughout MUSC: 5/5 strength throughout, no gross focal deficits SKIN: warm and dry and post-op changes as above. Hospital Course Abdominal pain with Nausea -Cause unknown but symptoms started after HD -described as crampy and associated with an intolerance of PO. -associated with epigastric pain -Nausea but no vomiting and or disrrhea -No fever,chills -Peritoneal Catheter site and Hernia Surgery sites are OK-no inflammation and or infection -symptomatically a lot better -tolerating regular diet -will try Zofran ODT and Tums PRN and send home today -discharge home today ESRD on HD S/P Peritoneal catheter placement Consulting Nephro to continue HD as inpatient. She has catheter in place for PD, however, with abdominal issues will likely cont HD preferentially. Cont Phoslo and Calcium supplementation Continue HD HTN-controlled, cont home meds including lisinopril 40mg and Coreg 3.125mg PO BID. BP remains controlled Depression-stable and appears uplifted by the idea of home PD, excited to get her catheter in place and bandages off recently. Cont Lexapro DMII-ISS/Lantus per algorithm. Consulted inpatient glycemic pharmacist. ADA/renal diet. DVT proph-heparin SQ Full code DISPOSITION Likely discharge today Total time spent on discharge = 35 minutes This includes examination of the patient, discharge planning, medication reconciliation, and communication with other providers. Discharge Instructions Date of Service Mar 08, 2017. Admission Reason for Admission: Abdominal Pain Discharge Discharge Diagnosis / Problem: Nausea ,Epigastric pain,ESRD on HD Discharge Goals Goal(s): Prevent Disease Progression Activity Recommendations Activity Limitations: resume your previous activity . Instructions / Follow-Up Instructions / Follow-Up Dr Aldridge on 03/14/17 at 11AM Current Hospital Diet Patient's current hospital diet: Diabetes Type 2 Diet, Renal Diet Discharge Diet Recommended Diet: Diabetes Type 2 Diet, Renal Diet Pending Studies Studies pending at discharge: no Laboratory Results Hemoglobin A1c Test 01/23/17 04:25 Range/Units Estimated Average Glucose 97 mg/dl Hemoglobin A1c 5.0 4.5-5.6 % Medical Emergencies . Who to Call and When: Medical Emergencies: If at any time you feel your situation is an emergency, please call 911 immediately. . Non-Emergent Contact Non-Emergency issues call your: Primary Care Provider . Past History Medical & Surgical History: (1) Abdominal pain (2) Focal segmental glomerulosclerosis (3) DM2 (diabetes mellitus, type 2) (4) HTN (hypertension) (5) CKD (chronic kidney disease) stage V requiring chronic dialysis (6) Kidney transplant status, living related donor (7) H/O knee surgery (8) H/O: (9) H/O tubal ligation . "Provider Documentation" section prepared by Juan Victor. . VTE Core Measure Inpt VTE Proph given/why not?: Unfractionated heparin SQ <Electronically signed by Juan Victor M.D.> Signed: 03/08/17 1548 Signed: Additional Copies To Adolph Aldridge M.D.
== END 2017-03-08 16:36 | disposition home or self-care (01) | DRG 391 ==
LOC: C.EDB 18:24 → C.MS4W 21:47 → EDBEDREQ 21:53 → ENRESERV 21:59
PROVIDERS: ADMIT Hospitalist; ATTEND Internal Medicine
DX: R10.13 Epigastric pain (principal); N18.6 End stage renal disease; I12.0 Hypertensive chronic kidney disease with stage 5 chronic kidney disease or end stage renal disease; Z94.0 Kidney transplant status; R11.0 Nausea; D63.1 Anemia in chronic kidney disease; E11.22 Type 2 diabetes mellitus with diabetic chronic kidney disease; E66.9 Obesity, unspecified; F32.9 Major depressive disorder, single episode, unspecified; Z68.30 Body mass index [BMI] 30.0-30.9, adult; Z79.899 Other long term (current) drug therapy; Z91.15 Patient's noncompliance with renal dialysis; Z99.2 Dependence on renal dialysis; F17.200 Nicotine dependence, unspecified, uncomplicated; Z83.3 Family history of diabetes mellitus

== ENCOUNTER 2017-03-13 22:14 | Emergency (ER) | payer OTHER ==
[~2017-03-13] VITALS: Ht 167.6 cm; Wt 85.0 kg
[~2017-03-13 22:14] MED LIST changes: +ACET-1256 PO; -AMLO-114 PO; -CALC500C3 PO; -FLUT0.15 NAE; -LISI40TA PO; +LSN40 PO; +NRV/10 PO; -VNTHFA/IN INH; +ZFRODT4HP PO
[2017-03-13 22:19] VITALS: Ht 167.6 cm; Wt 85.0 kg
[2017-03-13] MEDS ORDERED: KETOROLAC TROMETHAMINE 30 MG/ML VIAL IV STA (22:35)
[2017-03-13] MEDS ORDERED: SODIUM CHLORIDE 0.9% 1000ML 1,000 ML IV ONE (22:45)
[2017-03-13] MEDS ORDERED: ACETAMINOPHEN IV 100 ML IV ONE (22:45)
[2017-03-13 23:11] LABS: BASO % 0.2 %; BASO ABS # 0.01 K/uL (0-0.2); EOS % 2.7 %; HEMATOCRIT 26.5 % (37-47); IG% 0.4 %; LYMPH % 13.8 %; LYMPH ABS # 0.78 K/uL (1.2-3.4); MEAN CELL VOLUME 96.7 fL (80-100); MEAN CORPUSCULAR HEMOGLOBIN 31.8 pg (25-34); MEAN CORPUSCULAR HGB CONC 32.8 g/dl (32-36); MEAN PLATELET VOLUME 10.2 fL (7.4-10.4); MONO % 7.8 %; NEUT % 75.1 %; PLATELET COUNT 154 K/uL (130-400); RED BLOOD COUNT 2.74 M/uL (4.2-5.4); WHITE BLOOD COUNT 5.66 K/uL (4.8-10.8)
[2017-03-13 23:43] LABS: ANISOCYTOSIS PRESENT; COMPLETE YES; OVALOCYTES 1+
[2017-03-14 00:16] LABS: ALB/GLOB RATIO 0.7 (0.9-2); ALKALINE PHOSPHATASE 73 U/L (45-117); ALT/SGPT 29 U/L (12-78); AMYLASE 72 U/L (25-115); BLOOD UREA NITROGEN 36 mg/dl (7-18); BUN/CREATININE RATIO 7.9 (10-20); CALCIUM 8.3 mg/dl (8.5-10.1); CARBON DIOXIDE 37 mmol/L (21-32); CHLORIDE 96 mmol/L (98-107); GLUCOSE 116 mg/dl (70-99); SODIUM 141 mmol/L (136-145)
[2017-03-14 00:50] LABS: POTASSIUM 4.1 mmol/L (3.5-5.1)
[2017-03-14 01:18] VITALS: BP 160/100; PULSE 85; TEMP 36.9; O2SAT 97
--- NOTE | 2017-03-14 02:50 | EMERGENCY ROOM VISIT NOTE ---
History First contact with patient: 22:27 Chief Complaint: ABDOMINAL PAIN Stated Complaint: CHEST & STOMACH PAIN Nursing Triage Summary: Abdomina/chest pain mostly on left side and in the middle. Patient is a dialysis patient with fistula left arm with positive thrill. Patient had PD catheter placed three weeks ago. History of Present Illness The patient is a 31 year old female who presents to the Emergency Room with complaints of central abdominal pain for the past 12 hours. The patient has a history of end-stage renal disease and is on dialysis. She states her last dialysis treatment was this morning. After dialysis she had a mild headache that has persisted. The patient was admitted to this facility a week ago for pancreatitis. The patient states that her discomfort feels similar to last week. She does not have a gallbladder. She states that sometimes her central abdominal pain radiate into her epigastrium and cause her some chest pain. She has had symptoms like this in the past. She rates her current discomfort a 10/ 10. She does make urine, however she urinated today and isn't sure when she'll be able to urinate again. Review of Systems More than 10 systems were reviewed and otherwise negative with the exception of history of present illness. Past Medical/Surgical History Medical Problems: (1) Abdominal pain (2) Chest pain (3) CKD (chronic kidney disease) stage V requiring chronic dialysis (4) DM2 (diabetes mellitus, type 2) (5) Focal segmental glomerulosclerosis (6) HTN (hypertension) (7) Hyperkalemia (8) Migraine (9) Renal failure (10) Syncope Surgical Problems: (1) H/O knee surgery (2) H/O tubal ligation (3) H/O: (4) Kidney transplant status, living related donor Social History Problems: (1) Kidney transplanted Family History Crohn's disease FATHER Diabetes mellitus MOTHER Hypertension SISTER Social History Smoking Status: Current Every Day Smoker Alcohol Use: none Drug Use: none Marital Status: in relationship Housing Status: lives with family, lives with significant other Occupation Status: employed, other Current/Historical Medications Scheduled Amlodipine Besylate (Amlodipine Besylate), 10 MG PO DAILY Calcium Acetate (Phoslo 667 Mg), 2,668 MG PO WM Calcium Acetate (Phoslo 667 Mg), 1,334 MG PO WITH SNACKS Calcium Carbonate (Tums), 1,500 MG PO HS Carvedilol (Coreg), 3.125 MG PO BID Escitalopram Oxalate (Escitalopram Oxalate), 20 MG PO QAM Famotidine (Pepcid), 40 MG PO QAM Lisinopril (Lisinopril), 40 MG PO UD Mirtazapine (Remeron), 30 MG PO HS Trazodone Hcl (Trazodone), 50 MG PO HS Scheduled PRN Acetaminophen (Tylenol), 1,000 MG PO Q6H PRN for Pain Albuterol Hfa (Ventolin Hfa), 2 PUFFS INH QID PRN for SOB/Wheezing Fluticasone Propionate (Nasal) (Flonase Allergy Relief), 2 SPRAYS FRED DAILY PRN for Nasal Congestion Ondansetron (Ondansetron Odt), 4 MG PO Q4H PRN for Nausea Allergies Coded Allergies: Cefaclor (Verified Allergy, Unknown, Rash, 02/21/17) Reported by PT. Amoxicillin (Verified Adverse Reaction, Unknown, VOMITING, 02/21/17) Clavulanic Acid (Verified Adverse Reaction, Unknown, VOMITING, 02/21/17) Physical Exam Vital Signs Date Time Temp Pulse Resp B/P (MAP) Pulse Ox O2 Delivery O2 Flow Rate FiO2 03/14/17 01:18 36.9 85 20 160/100 97 03/14/17 00:54 85 20 160/100 97 Room Air 03/13/17 23:20 99 03/13/17 22:19 36.9 100 22 166/106 97 Room Air Pain Rating (0-10): 0 Physical Exam VITALS: Vitals are noted on the nurse's note and reviewed by myself. Vital signs stable. GENERAL: Well-developed, well-nourished, white female, who is in no acute distress and resting comfortably. Patient is cooperative with the examination. HEAD: Normocephalic atraumatic. HEART: Regular rate and rhythm without murmurs gallops or rubs. LUNGS: Clear to auscultation bilaterally without wheezes, rales or rhonchi. No retractions or accessory muscle use. ABDOMEN: Positive normal bowel sounds x 4. Soft, nontender, without masses or organomegaly. No guarding or rebound tenderness. Left-sided abdominal peritoneal dialysis site is without evidence of infection, erythema, or edema. MUSCULOSKELETAL: No muscle atrophy, erythema, or edema noted. Full range of motion without joint tenderness in all extremities. NEURO: Patient was alert and oriented to person place and time. CN II through XII grossly intact. Medical Decision & Procedures Laboratory Results 03/13/17 23:00 Red Blood Count 2.74, Mean Corpuscular Volume 96.7, Mean Corpuscular Hemoglobin 31.8, Mean Corpuscular Hemoglobin Concent 32.8, Mean Platelet Volume 10.2, Neutrophils (%) (Auto) 75.1, Lymphocytes (%) (Auto) 13.8, Monocytes (%) (Auto) 7.8, Eosinophils (%) (Auto) 2.7, Basophils (%) (Auto) 0.2, Neutrophils # (Auto) 4.26, Lymphocytes # (Auto) 0.78, Monocytes # (Auto) 0.44, Eosinophils # (Auto) 0.15, Basophils # (Auto) 0.01 03/13/17 23:00 03/14/17 00:25 Test 03/13/17 23:00 03/13/17 23:18 03/14/17 00:25 White Blood Count 5.66 K/uL (4.8-10.8) Red Blood Count 2.74 M/uL (4.2-5.4) Hemoglobin 8.7 g/dL (12.0-16.0) Hematocrit 26.5 % (37-47) Mean Corpuscular Volume 96.7 fL (80-100) Mean Corpuscular Hemoglobin 31.8 pg (25-34) Mean Corpuscular Hemoglobin Concent 32.8 g/dl (32-36) Platelet Count 154 K/uL (130-400) Mean Platelet Volume 10.2 fL (7.4-10.4) Neutrophils (%) (Auto) 75.1 % Lymphocytes (%) (Auto) 13.8 % Monocytes (%) (Auto) 7.8 % Eosinophils (%) (Auto) 2.7 % Basophils (%) (Auto) 0.2 % Neutrophils # (Auto) 4.26 K/uL (1.4-6.5) Lymphocytes # (Auto) 0.78 K/uL (1.2-3.4) Monocytes # (Auto) 0.44 K/uL (0.11-0.59) Eosinophils # (Auto) 0.15 K/uL (0-0.5) Basophils # (Auto) 0.01 K/uL (0-0.2) RDW Standard Deviation 54.9 fL (36.4-46.3) RDW Coefficient of Variation 15.9 % (11.5-14.5) Immature Granulocyte % (Auto) 0.4 % Immature Granulocyte # (Auto) 0.02 K/uL (0.00-0.02) Anisocytosis PRESENT Ovalocytes 1+ Anion Gap 8.0 mmol/L (3-11) Est Creatinine Clear Calc Drug Dose 19.5 ml/min Estimated GFR () 13.7 Estimated GFR (Non- 11.9 BUN/Creatinine Ratio 7.9 (10-20) Calcium Level 8.3 mg/dl (8.5-10.1) Total Bilirubin 0.3 mg/dl (0.2-1) Alanine Aminotransferase (ALT/SGPT) 29 U/L (12-78) Alkaline Phosphatase 73 U/L (45-117) Creatine Kinase MB < 0.5 ng/ml (0.5-3.6) Creatine Kinase MB Ratio (0-3.0) Total Protein 6.9 gm/dl (6.4-8.2) Albumin 2.9 gm/dl (3.4-5.0) Globulin 4.0 gm/dl (2.5-4.0) Albumin/Globulin Ratio 0.7 (0.9-2) Amylase Level 72 U/L (25-115) Lipase 571 U/L (73-393) Bedside Troponin I < 0.030 ng/ml (0-0.045) Aspartate Amino Transf (AST/SGOT) 18 U/L (15-37) Total Creatine Kinase 22 U/L (26-192) Medications Administered Medications (Trade) Dose Ordered Sig/Sachin Route Start Time Stop Time Status Last Admin Dose Admin Sodium Chloride 1,000 ml @ 999 mls/hr Q1H1M ONCE IV 03/13/17 22:45 03/13/17 23:45 DC 03/13/17 23:29 999 MLS/HR Ketorolac Tromethamine (Toradol Inj) 30 mg NOW STAT IV 03/13/17 22:35 03/13/17 22:40 DC 03/13/17 23:28 30 MG Acetaminophen 100 ml @ 400 mls/hr NOW ONCE IV 03/13/17 22:45 03/13/17 22:59 DC 03/13/17 23:28 400 MLS/HR ED Course Physical exam and history were performed. Nursing notes, EMR, and Medication List were personally reviewed. Patient appears to have central abdominal pain that radiates into her epigastrium. The patient's exam is fairly benign and she does not have reproducible tenderness today. She does have a history of end-stage renal disease and is on dialysis. Her last dialysis was about 12 hours ago. IV access was established and labs were obtained. The patient was hydrated with normal saline. She was given IV Toradol and IV Tylenol for comfort. EKG was performed and was normal sinus rhythm without acute ST elevation. X-rays do not show obvious obstruction or free air with official radiology reading pending. The patient's blood work is as above and was reviewed. She does not have a significantly elevated white blood cell count. She is mildly anemic, however this is chronic. Her BUN/creatinine are elevated, however this is improved from last week. Her lipase is also elevated, however is under 600, and this does represent improvement from her levels a week ago. Her other blood work is fairly unremarkable. She was not able to provide a urine while here in the emergency department. Her troponin and CK/CK-MB are both negative. On reevaluation the patient was found to be sleeping very comfortably in her emergency department bed. She indicated that the medication and fluids significantly improved her headache symptoms as well as her abdominal pain. I had a lengthy discussion with the patient regarding possibility of CT imaging for her pain, however she has had 7 CT scans in the past 12 months alone, and with her blood work actually looked improved from a week ago we decided this would be unnecessary at this time. The patient appears stable for discharge home. She is to follow with her PCP and her specialists. She was certainly invited back to the ER if she has evolution of her symptoms, at which time we will consider CT imaging. The patient was very comfortable with this plan, and rated her discomfort is 0/10 at the time of departure. The chart was completed utilizing [employer] Voice Recognition Software. Grammatical errors, random word insertions, pronoun errors, and incomplete sentences are an occasional consequence of this system due to software limitations, ambient noise, and hardware issues. Any formal questions or concerns about the content, text, or information contained within the body of this dictation should be directly addressed to the provider for clarification. . Medical Decision Differential diagnosis: Etiologies such as appendicitis, diverticulitis, PUD, biliary pathology, UTI, pancreatitis, obstruction, mesenteric ischemia, aortic pathology, infections, inflammatory bowel disease, renal colic, as well as others were entertained. Impression Primary Impression: Central abdominal pain Departure Information Dispostion Home / Self-Care Condition GOOD Forms Call Back Authorization, HOME CARE DOCUMENTATION FORM, IMPORTANT VISIT INFORMATION Patient Instructions My [facility] Additional Instructions You were seen and evaluated today on an emergency basis only. This is not a substitute for, or an effort to provide, complete comprehensive medical care. It is not possible to recognize and treat all injuries or illnesses in a single emergency department visit. For this reason it is recommended that you followup with your primary care physician and specialists for ongoing care and evaluation. Continue your at-home medications as prescribed. You are welcome to return to the emergency department anytime with new, worsening, or concerning symptoms.
--- NOTE | 2017-03-14 06:45 | DIAGNOSTIC IMAGING REPORT ---
ABDOMEN 2VIEW W/PA CHEST RTN HISTORY: 31 years Female acute epigastric abdominal pain COMPARISON: CT 03/06/2017, chest radiograph 02/25/2017 TECHNIQUE: Frontal view of the chest with erect and supine views of the abdomen FINDINGS: Cardiac silhouette is mildly enlarged and appears unchanged. There is no overt pulmonary edema. No pneumothorax, pleural effusion or focal airspace consolidation. Bones of the chest are grossly intact. No pneumoperitoneum on the upright projection. Cholecystectomy clips are seen. The bowel gas pattern is nonobstructive. Peritoneal dialysis catheter of the mid pelvis is redemonstrated. IMPRESSION: 1. Cardiomegaly without overt pulmonary edema. 2. Nonobstructive bowel gas pattern without pneumoperitoneum. 3. Peritoneal dialysis catheter again terminates in the mid pelvis. The above report was generated using voice recognition software. It may contain grammatical, syntax or spelling errors. Electronically signed by: Alejandro Copeland M.D. 03/14/2017 6:44 AM Dictated Date/Time: 03/14/2017 6:41 AM
[2017-03-20] MEDS ORDERED: TOBR0.3S4 OPL (14:35)
[2017-03-20] MEDS ORDERED: DOXY100T PO (14:35)
[2017-04-24] MEDS ORDERED: CMD/25 PO (12:00)
[2017-04-26] MEDS ORDERED: LISI20TA3 PO (16:37)
[2017-04-26] MEDS ORDERED: CMD3 PO (16:37)
[2017-05-15] MEDS ORDERED: VNTHFA/IN INH (12:28)
[2017-05-15] MEDS ORDERED: LISI-725 PO (13:43)
[2017-05-15] MEDS ORDERED: CALC500C3 PO (13:50)
[2017-05-15] MEDS ORDERED: CRG125 PO (15:17)
[2017-05-15] MEDS ORDERED: NRV/5 PO (15:17)
[2017-05-15] MEDS ORDERED: BENZ100C7 PO (15:22)
[2017-05-15] MEDS ORDERED: FLUT0.15 NAE (15:33)
[2017-05-15] MEDS ORDERED: CALC0.5C17 PO (18:14)
[2017-05-15] MEDS ORDERED: MIRT30TA3 PO (19:24)
[2017-05-15] MEDS ORDERED: CALC667C4 PO ×2 (19:56→21:12)
[2017-05-15] MEDS ORDERED: TRAZ50TA35 PO (19:56)
[2017-05-15] MEDS ORDERED: LXP/20 PO (21:08)
[2017-05-15] MEDS ORDERED: FAMO40TA6 PO (23:12)
[2017-05-17] MEDS ORDERED: CRG25 PO (14:53)
[2017-05-21] MEDS ORDERED: APR25 PO (00:24)
[2017-05-21] MEDS ORDERED: ATV1 PO (15:28)
[2017-05-21] MEDS ORDERED: APR50 PO (15:28)
[2017-05-21] MEDS ORDERED: ativan PO (16:06)
== END 2017-03-14 01:18 | disposition home or self-care (01) ==
LOC: C.EDB 22:15 → C.EDA 03-14 01:18
DX: R10.9 Unspecified abdominal pain (principal); Z99.2 Dependence on renal dialysis; N18.6 End stage renal disease; I12.0 Hypertensive chronic kidney disease with stage 5 chronic kidney disease or end stage renal disease; E11.29 Type 2 diabetes mellitus with other diabetic kidney complication; D64.9 Anemia, unspecified; Z98.51 Tubal ligation status; Z94.0 Kidney transplant status; Z83.3 Family history of diabetes mellitus; Z82.49 Family history of ischemic heart disease and other diseases of the circulatory system; F17.210 Nicotine dependence, cigarettes, uncomplicated; Z79.899 Other long term (current) drug therapy

== ENCOUNTER 2017-03-20 14:00 | Observation (INO) | payer OTHER ==
[~2017-03-20] VITALS: Ht 167.6 cm; Wt 86.9 kg
[2017-03-20 14:32] LABS: HEMATOCRIT 21.4 % (37-47); MEAN CORPUSCULAR HEMOGLOBIN 31.8 pg (25-34); MEAN CORPUSCULAR HGB CONC 33.2 g/dl (32-36); PLATELET COUNT 149 K/uL (130-400); RED BLOOD COUNT 2.23 M/uL (4.2-5.4); WHITE BLOOD COUNT 4.31 K/uL (4.8-10.8)
[2017-03-20] MEDS ORDERED: DOXY100T PO ×2 (14:35)
[2017-03-20] MEDS ORDERED: TOBR0.3S4 OPL ×2 (14:35)
[2017-03-20 14:41] LABS: PROTHROMBIN TIME (PATIENT) 10.4 SECONDS (9.0-12.0)
[2017-03-20] MEDS ORDERED: ONDANSETRON INJ 2 MG/ML 2 ML VIAL IV STA (14:53)
[2017-03-20] MEDS ORDERED: MoRPHine SULFATE 4 MG/ML 1 ML CARP\\VIAL IV STA (14:53)
--- NOTE | 2017-03-20 14:57 | EMERGENCY ROOM VISIT NOTE ---
History First contact with patient: 14:44 Chief Complaint: CHEST PAIN Stated Complaint: CHEST PAIN Nursing Triage Summary: pt here via [facility] from dialysis with chest pains. pt states mid chest that radiates into her back. pt has recent dx of sinus infection and bronchitis. pt had dialysis today, only half completed, has not been dialyzed since saturday, was ill with bronchitis. pt denies any sob. pain with deep inspiration pt given 4 baby asa, 1 nitro in route with slight relief History of Present Illness The patient is a 31 year old female who presents to the Emergency Room via an ounce with complaints of chest pain". The patient states that earlier today she was at dialysis, here in [place] and long-term through dialysis and ate some food and developed substernal chest pain that radiated to her right scapula. She rated the pain as a 9/10. In route to the hospital here she was given aspirin and nitroglycerin. She states that the nitroglycerin alleviated her pain somewhat. She states that she has had pain similar to this, but never that radiated to her scapula. She had a cardiac catheterization 2 months ago, and was reportedly clean. This was performed in [place]. She follows with Dr. Ross for cardiology. She has associated nausea. She denies any fevers , chills, history of lung problems, blood clots, vomiting, abdominal pain. She denies any shortness of breath, or leg swelling. She has history of FSGS, and kidney transplantation. She's been on dialysis since last April. Patient skipped dialysis on Saturday, as she was diagnosed with a sinus infection , left eye infection at that time and fluid behind her ear. She's been on doxycycline since that time. This is only one episode of dialysis that she has missed. Her last episode of dialysis was on Saturday. Review of Systems A complete 10-point Review of Systems was discussed with the patient, with pertinent positives and negatives listed in the History of Present Illness. All remaining Review of Systems questions can be considered negative unless otherwise specified. Past Medical/Surgical History Medical Problems: (1) Abdominal pain (2) Chest pain (3) CKD (chronic kidney disease) stage V requiring chronic dialysis (4) DM2 (diabetes mellitus, type 2) (5) Focal segmental glomerulosclerosis (6) HTN (hypertension) (7) Hyperkalemia (8) Migraine (9) Renal failure (10) Syncope Surgical Problems: (1) H/O knee surgery (2) H/O tubal ligation (3) H/O: (4) Kidney transplant status, living related donor Social History Problems: (1) Kidney transplanted Family History Crohn's disease FATHER Diabetes mellitus MOTHER Hypertension SISTER Social History Smoking Status: Never Smoker Alcohol Use: none Drug Use: none Marital Status: in relationship Housing Status: lives with family, lives with significant other Occupation Status: employed, other Current/Historical Medications Scheduled Amlodipine Besylate (Amlodipine Besylate), 10 MG PO DAILY Calcium Acetate (Phoslo 667 Mg), 2,001 MG PO WM Calcium Acetate (Phoslo 667 Mg), 1,334 MG PO WITH SNACKS Calcium Carbonate (Tums), 1,500 MG PO HS Carvedilol (Coreg), 3.125 MG PO BID Doxycycline Hyclate (Doxycycline Hyclate), 100 MG PO BID Escitalopram Oxalate (Escitalopram Oxalate), 20 MG PO QAM Famotidine (Pepcid), 40 MG PO QAM Lisinopril (Lisinopril), 40 MG PO UD Mirtazapine (Remeron), 30 MG PO HS Tobramycin Sulfate (Ophth) (Tobrex Oph Mary), 1 DROP OPL Q4H Trazodone Hcl (Trazodone), 50 MG PO HS Scheduled PRN Albuterol Hfa (Ventolin Hfa), 2 PUFFS INH Q4H PRN for SOB/Wheezing Fluticasone Propionate (Nasal) (Flonase Allergy Relief), 2 SPRAYS FRED DAILY PRN for Nasal Congestion Physical Exam Vital Signs Date Time Temp Pulse Resp B/P (MAP) Pulse Ox O2 Delivery O2 Flow Rate FiO2 03/20/17 15:42 172/99 98 Room Air 03/20/17 15:04 75 03/20/17 14:45 72 16 185/116 99 Room Air 03/20/17 14:23 97 Room Air 03/20/17 14:23 97 Room Air 03/20/17 14:14 36.8 78 16 181/102 97 Room Air Physical Exam VITAL SIGNS - Vital signs and nursing notes were reviewed. Patient is afebrile , hypertensive at 181/102, non-tachycardic and is saturating on room air 97%. GENERAL -31-year-old female appearing her stated age who is in no acute distress. Communicates well with provider and answers questions appropriately. SKIN - Without rashes. No petechial rashes. HEAD - NC/AT. EYES - PERRL with EOMI bilaterally. Sclera anicteric. Palpebral conjunctiva pink and moist with no injection noted. EARS - No deformities of external structures noted on gross examination bilaterally. No pain elicited with palpation of the tragus bilaterally. External auditory canals without discharge or otorrhea. Tympanic membranes pearly valadez without retraction or bulging. No fluid or purulent material visualized behind the TM. Handle of malleus, umbo, cone of light, pars tensa/ flaccid all easily visualized. NOSE - Midline and without cyanosis. No epistaxis or purulent drainage noted. Septum midline without deviation or septal hematoma noted. NECK - Neck with FROM. Supple to palpation. No lymphadenopathy noted. No nuchal rigidity. LUNGS - Chest wall symmetric without accessory muscle use, intercostals retractions, or central cyanosis. Normal vesicular breath sounds CTA B/L. No wheezes, rales, or rhonchi appreciated. CARDIAC - RRR with S1/S2. No murmur, rubs, or gallops appreciated. ABDOMEN - Abdominal contour [] without pulsations or visible masses. BS normoactive all four quadrants. No tenderness, palpable masses, hepatosplenomegaly, or ascites noted. EXTREMITIES - No clubbing or peripheral cyanosis. No pretibial edema present. +5 /5 strength noted in UE/LE bilaterally. NEUROLOGIC - Cranial nerves II through XII grossly intact. Sensory intact to light touch throughout. PSYCH - A&Ox3 and cooperates fully with examiner. Pt is very pleasant and interacts well with examiner. Rectal exam, in the presence of the nurse is unremarkable. Hemoccult negative. Medical Decision & Procedures ER Provider Diagnostic Interpretation: SINGLE VIEW CHEST CLINICAL HISTORY: Atypical chest pain. FINDINGS: An AP, portable, upright chest radiograph is compared to study dated 03/14/2017. The examination is degraded by portable technique. The heart is enlarged. There is prominence of the pulmonary vasculature. No airspace consolidation, large pleural effusion, or pneumothorax is seen. The bony thorax is grossly intact. Cholecystectomy clips are noted. IMPRESSION: Cardiomegaly with prominence of the central pulmonary vasculature. Correlate clinically for evidence of mild congestive failure. Electronically signed by: North Quintero M.D. 03/20/2017 2:57 PM Dictated Date/Time: 03/20/2017 2:56 PM Laboratory Results 03/20/17 14:20 03/20/17 14:20 Test 03/20/17 14:20 03/20/17 14:29 Red Blood Count 2.23 M/uL (4.2-5.4) Mean Corpuscular Volume 96.0 fL (80-100) Mean Corpuscular Hemoglobin 31.8 pg (25-34) Mean Corpuscular Hemoglobin Concent 33.2 g/dl (32-36) RDW Standard Deviation 55.4 fL (36.4-46.3) RDW Coefficient of Variation 15.8 % (11.5-14.5) Mean Platelet Volume 9.0 fL (7.4-10.4) Prothrombin Time 10.4 SECONDS (9.0-12.0) Prothromb Time International Ratio 1.0 (0.9-1.1) Activated Partial Thromboplast Time 24.7 SECONDS (21.0-31.0) Partial Thromboplastin Ratio 1.0 Anion Gap 6.0 mmol/L (3-11) Est Creatinine Clear Calc Drug Dose 12.7 ml/min Estimated GFR () 7.9 Estimated GFR (Non- 6.8 BUN/Creatinine Ratio 5.7 (10-20) Calcium Level 8.0 mg/dl (8.5-10.1) Total Bilirubin 0.3 mg/dl (0.2-1) Aspartate Amino Transf (AST/SGOT) 17 U/L (15-37) Alanine Aminotransferase (ALT/SGPT) 23 U/L (12-78) Alkaline Phosphatase 72 U/L (45-117) Total Protein 6.5 gm/dl (6.4-8.2) Albumin 2.8 gm/dl (3.4-5.0) Globulin 3.7 gm/dl (2.5-4.0) Albumin/Globulin Ratio 0.8 (0.9-2) Human Chorionic Gonadotropin, Qual NEG (NEG) Bedside Troponin I < 0.030 ng/ml (0-0.045) Medications Administered Medications (Trade) Dose Ordered Sig/Sachin Route Start Time Stop Time Status Last Admin Dose Admin Morphine Sulfate (MoRPHine SULFATE INJ) 4 mg NOW STAT IV 03/20/17 14:53 03/20/17 14:55 DC 03/20/17 15:38 4 MG Ondansetron HCl (Zofran Inj) 4 mg NOW STAT IV 03/20/17 14:53 03/20/17 14:55 DC 03/20/17 15:37 4 MG Nitroglycerin (Nitroglycerin 2% Oint) 1 inch STK-MED ONCE .ROUTE 03/20/17 16:07 03/20/17 16:08 DC 03/20/17 16:11 1 INCH Acetaminophen (Tylenol Tab) 650 mg Q4H PRN PO 03/20/17 16:45 04/19/17 16:44 03/20/17 18:16 650 MG Nitroglycerin (Nitrostat Tab) 0.4 mg UD PRN SL 03/20/17 16:45 04/19/17 16:44 03/20/17 18:54 0.4 MG Medical Decision Patient was seen and evaluated as above. She process to us today after finishing half of her dialysis, with substernal chest pain. This developed after eating. IV access was initiated, and the above workup was performed. Bedside EKG reveals normal sinus rhythm, rate of 76 piece per minute. Nonspecific ST of normality, prolonged QT and when compared with previous EKG is no change was found. CBC reveals white blood cell count decreased at 4.31. Hemoglobin low at 7.1. This is a 1.6 point decrease in 7 days. Coag studies unremarkable. CMP reveals creatinine of 7.3, calcium low at 8, albumin low at 2.8. Prior to suggest negative. Chest x-ray shows cardiomegaly, with vascular prominence. Patient this time appears to be symptomatically anemia, and I believe will benefit from inpatient management. Rectal exam was performed and Hemoccult was negative. The cause of her significant decrease at this time could be volume related to her dialysis, however believe that inpatient management is warranted. Case was discussed with my attending. Troponin is negative. Please refer to further documentation regarding her stay. In evaluation treatment this patient the following differential diagnoses entertained: RI, PE, symptomatic anemia, rectal bleeding, among others. Impression Primary Impression: Chest wall pain Additional Impression: Anemia Departure Information Referrals Adolph Aldridge M.D. (PCP) Patient Instructions My [facility] Problem Qualifiers
[2017-03-20 15:18] LABS: PREG INTERNAL NEGATIVE QC NEG CLEAR BACKGROUND; PREG INTERNAL POSITIVE QC POS CONTROL LINE
[2017-03-20 15:36] LABS: ALB/GLOB RATIO 0.8 (0.9-2); ALKALINE PHOSPHATASE 72 U/L (45-117); ALT/SGPT 23 U/L (12-78); AST/SGOT 17 U/L (15-37); BLOOD UREA NITROGEN 42 mg/dl (7-18); BUN/CREATININE RATIO 5.7 (10-20); CARBON DIOXIDE 34 mmol/L (21-32); CHLORIDE 98 mmol/L (98-107); GLUCOSE 73 mg/dl (70-99); SODIUM 138 mmol/L (136-145)
[2017-03-20] MEDS ORDERED: NITROGLYCERIN OINT 2% 1GM PACKET EXT STA (15:59)
[2017-03-20] MEDS ORDERED: NITROGLYCERIN OINT 2% 1GM PACKET ONE (16:07)
[2017-03-20] MEDS ORDERED: FLUTICASONE PROPIONATE NA SPR 16 GM BTL NAE PRN (16:45)
[2017-03-20] MEDS ORDERED: ACETAMINOPHEN 325 MG TAB PO PRN (16:45)
[2017-03-20] MEDS ORDERED: POLYETHYLENE (MIRALAX) 17 GM PACK PO PRN (16:45)
[2017-03-20] MEDS ORDERED: ALBUTEROL HFA 8 GM INHALER INH PRN (16:45)
[2017-03-20] MEDS ORDERED: ACETAMINOPHEN 500 MG TAB PO PRN (16:45)
[2017-03-20 17:27] VITALS: Ht 167.6 cm; Wt 86.9 kg
[2017-03-20 17:29] VITALS: O2SAT 96
[2017-03-20] MEDS ORDERED: TRAMADOL HCL 50 MG TAB PO PRN (17:45)
[2017-03-20 18:04] VITALS: BP 184/119; PULSE 84; TEMP 37; O2SAT 100
[2017-03-20] MEDS ORDERED: LISINOPRIL 40 MG TAB PO ONE (18:15)
[2017-03-20] MEDS: NITROGLYCERIN 0.4 MG SL PER TAB CHARGE SL PRN ×3 (18:16→18:54)
--- NOTE | 2017-03-20 18:16 | Progress Note ---
Progress Note Date of Service Mar 20, 2017. Progress Note Patient was seen and evaluated with VARUN Alejandra. Patient comes in from dialysis unit for chest pain while going through dialysis , had to be discontinued half way. Patient has had multiple admissions in past for chest pain, had cardiac cath on 01/26/2017 and it was negative Had sinusitis 2 days ago- given doxy by PCP and symptoms improving. No c/o melena, fresh red blood per stools. EXAM: Gen- AAOX3, no d istress Neck- No JVD Lungs- AEBE decreased, few rales Heart- S1, S2 normal Abd- PD catheter +, soft, non tender Ext- no edema Labs reviewed EKG- reviewed, no acute changes compared to prior EKG ASSESSMENT AND PLAN: CHEST PAIN, ATYPICAL Less likely to be cardiac. Has had multiple admissions in past for similar reason, cardiac cath on 01/26/17- at [facility]- normal coronaries -EKG no acute changes compared to prior EKG, Trop x 1 negative -Will do EKG x 2, Troponin x 3 ANEMIA OF CHRONIC KIDNEY DISEASE, ACUTE ON CHRONIC Hb 7.1, dropped by 1.7 gm compared to prior number -No over GI bleeding signs -Likely dilutional from fluid overload as missed dialysis on saturday and only half done this time -Anemia work up already done in past, will add FOBT. -Will monitor H & H - repeat it in AM . If < 7, will need to transfuse with dialysis. ESRD ON HD -Missed it on saturday, got only half way through today due to chest pain and thus was discontinued -Nephrology consulted. Aware about it DISPOSITION Observation telemetry Agree with A/P of VARUN Alejandra
[2017-03-20 18:24] VITALS: BP 166/96
--- NOTE | 2017-03-20 18:26 | History and Physical ---
History & Physical Date & Time of Service: Mar 20, 2017 at 17:49 Chief Complaint: Chest Pain Primary Care Physician: Adolph Aldridge M.D. History of Present Illness Source: patient, clinic records, hospital records This is a 31 year old female with PMH of ESRD on HD and other problems listed below who presents to the ED for chest pain. Patient was recently admitted from March 06-2016 for nausea, epigastric pain. On admission there was concern for acute pancreatitis given epigastric tenderness and lipase elevated to ~900. She was due to see GI in clinic tomorrow for eval of recurrent pancreatitis. On Saturday patient missed dialysis due to illness- was seen by Ilene LINDSAY and placed on doxycycline for acute sinusitis and bronchitis. Cough is now resolved and sinus symptoms improving. Was also placed on eye drops for L eye conjunctivitis which improved. Had dialysis today- half session was done. She was up 3 kg from her dry weight. [place] fine prior to dialysis, then during session she ate part of a sandwich then developed chest pain. She describes it as pressure in substernal area with radiation to her right shoulder blade. She states it is different from prior CP because it radiates to shoulder blade. States nitro en route helped briefly but gave her a headache. Patient had a cardiac catheterization on 01/26/17 at [facility] which showed normal coronaries. Feels mildly nauseous since arriving to ER. Has had diarrhea x 5 days. She denies diaphoresis, fever, chills, weakness, fatigue, SOB/wheezing, abdominal pain, acid reflux, vomiting, hematochezia, black tarry stools, dysuria , frequency, LE edema. No heavy lifting or increased anxiety. Had peritoneal dialysis catheter placed and hernia repair 1 month ago- healed well. Did not have her lisinopril yet today. Past Medical/Surgical History Medical Problems: (1) CKD (chronic kidney disease) stage V requiring chronic dialysis Status: Chronic (2) DM2 (diabetes mellitus, type 2) Status: Chronic (3) Focal segmental glomerulosclerosis Status: Chronic (4) HTN (hypertension) Status: Chronic (5) Migraine Status: Chronic (6) Renal failure Permanent Comment: She has ESRD but is super non complaint with Dialysis. has missed dialysis for more than 2 weeks. As a result has lot of biochemical indicators of missing Dialysis--very lot Hgb, very low Calcium and very high BUn and creatinine. Because her BUN and creat is so high she is at risk for Dysequlibrium syndrome. So to avoid that will have to slow incremental dialysis. Will do 2hrs today, low qb dialysis. tomorrow will be 3 hrs and then Saturday will be 4 hrs. She is c/o Pain at the CVC site but it looks fine on exam and the Imaging. Will know further with Dialysis. I am surprised that despite such low Ca++ she still looks fine and no Symptoms. Status: Chronic Surgical Problems: (1) H/O knee surgery Status: Chronic (2) H/O tubal ligation Status: Chronic (3) H/O: Status: Chronic (4) Kidney transplant status, living related donor Status: Chronic Social History Problems: (1) Kidney transplanted Status: Chronic Family History Crohn's disease FATHER Diabetes mellitus MOTHER Hypertension SISTER Social History Smoking Status: Current Every Day Smoker (half pack per day) Alcohol Use: occasionally (rare) Drug Use: none Marital Status: in relationship Housing status: lives with significant other Occupational Status: employed, other Immunizations History of Influenza Vaccine: Yes Influenza Vaccine Date: May 05, 2016 History of Tetanus Vaccine?: Yes Tetanus Immunization Date: Oct 09, 2011 History of Pneumococcal: Yes Pneumococcal Date: Dec 05, 2006 History of Hepatitis B Vaccine: Yes Hepatitis Immunization Date: May 21, 1998 Multi-Drug Resistant Organisms History of MDRO: No Allergies Coded Allergies: Cefaclor (Verified Allergy, Unknown, Rash, 03/20/17) Reported by PT. Amoxicillin (Verified Adverse Reaction, Unknown, VOMITING, 03/20/17) Clavulanic Acid (Verified Adverse Reaction, Unknown, VOMITING, 03/20/17) Home Medications Scheduled Amlodipine Besylate (Amlodipine Besylate), 10 MG PO DAILY Calcium Acetate (Phoslo 667 Mg), 2,001 MG PO WM Calcium Acetate (Phoslo 667 Mg), 1,334 MG PO WITH SNACKS Calcium Carbonate (Tums), 1,500 MG PO HS Carvedilol (Coreg), 3.125 MG PO BID Doxycycline Hyclate (Doxycycline Hyclate), 100 MG PO BID Escitalopram Oxalate (Escitalopram Oxalate), 20 MG PO QAM Famotidine (Pepcid), 40 MG PO QAM Lisinopril (Lisinopril), 40 MG PO UD Mirtazapine (Remeron), 30 MG PO HS Tobramycin Sulfate (Ophth) (Tobrex Oph Mary), 1 DROP OPL Q4H Trazodone Hcl (Trazodone), 50 MG PO HS Scheduled PRN Albuterol Hfa (Ventolin Hfa), 2 PUFFS INH Q4H PRN for SOB/Wheezing Fluticasone Propionate (Nasal) (Flonase Allergy Relief), 2 SPRAYS FRED DAILY PRN for Nasal Congestion Review of Systems Ten systems reviewed and negative except as noted in HPI. Physical Exam Vital Signs Date Time Temp Pulse Resp B/P (MAP) Pulse Ox O2 Delivery O2 Flow Rate FiO2 03/20/17 17:29 80 18 181/102 96 Room Air 03/20/17 17:27 Room Air 03/20/17 15:42 172/99 98 Room Air 03/20/17 15:04 75 03/20/17 14:45 72 16 185/116 99 Room Air 03/20/17 14:23 97 Room Air 03/20/17 14:23 97 Room Air 03/20/17 14:14 36.8 78 16 181/102 97 Room Air General Appearance: WD/WN, no apparent distress Head: normocephalic, atraumatic Eyes: normal inspection, PERRL, sclerae normal ENT: normal ENT inspection, hearing grossly normal, TMs normal, pharynx normal , + pertinent finding (no sinus tenderness) Neck: supple Respiratory/Chest: chest non-tender, lungs clear, normal breath sounds, no respiratory distress, no accessory muscle use Cardiovascular: regular rate, rhythm, no murmur Abdomen/GI: normal bowel sounds, non tender, soft, + pertinent finding (well healed incision from hernia repair, PD catheter present) Extremities/Musculoskelatal: normal capillary refill, no pedal edema Neurologic/Psych: alert, normal mood/affect, oriented x 3 Skin: normal color, warm/dry Diagnostics Laboratory Results Results Past 24 Hours Test 03/20/17 14:20 03/20/17 14:29 Range/Units White Blood Count 4.31 4.8-10.8 K/uL Red Blood Count 2.23 4.2-5.4 M/uL Hemoglobin 7.1 12.0-16.0 g/dL Hematocrit 21.4 37-47 % Mean Corpuscular Volume 96.0 80-100 fL Mean Corpuscular Hemoglobin 31.8 25-34 pg Mean Corpuscular Hemoglobin Concent 33.2 32-36 g/dl RDW Standard Deviation 55.4 36.4-46.3 fL RDW Coefficient of Variation 15.8 11.5-14.5 % Platelet Count 149 130-400 K/uL Mean Platelet Volume 9.0 7.4-10.4 fL Prothrombin Time 10.4 9.0-12.0 SECONDS Prothromb Time International Ratio 1.0 0.9-1.1 Activated Partial Thromboplast Time 24.7 21.0-31.0 SECONDS Partial Thromboplastin Ratio 1.0 Sodium Level 138 136-145 mmol/L Potassium Level 4.0 3.5-5.1 mmol/L Chloride Level 98 98-107 mmol/L Carbon Dioxide Level 34 21-32 mmol/L Anion Gap 6.0 3-11 mmol/L Blood Urea Nitrogen 42 7-18 mg/dl Creatinine 7.30 0.60-1.20 mg/dl Est Creatinine Clear Calc Drug Dose 12.7 ml/min Estimated GFR () 7.9 Estimated GFR (Non- 6.8 BUN/Creatinine Ratio 5.7 10-20 Random Glucose 73 70-99 mg/dl Calcium Level 8.0 8.5-10.1 mg/dl Total Bilirubin 0.3 0.2-1 mg/dl Aspartate Amino Transf (AST/SGOT) 17 15-37 U/L Alanine Aminotransferase (ALT/SGPT) 23 12-78 U/L Alkaline Phosphatase 72 45-117 U/L Total Creatine Kinase 34 26-192 U/L Creatine Kinase MB < 0.5 0.5-3.6 ng/ml Creatine Kinase MB Ratio 0-3.0 Total Protein 6.5 6.4-8.2 gm/dl Albumin 2.8 3.4-5.0 gm/dl Globulin 3.7 2.5-4.0 gm/dl Albumin/Globulin Ratio 0.8 0.9-2 Human Chorionic Gonadotropin, Qual NEG NEG Bedside Troponin I < 0.030 0-0.045 ng/ml Diagnostic Radiology SINGLE VIEW CHEST- per radiology IMPRESSION: Cardiomegaly with prominence of the central pulmonary vasculature. Correlate clinically for evidence of mild congestive failure. EKG NSR, 76 bpm, nonspecific T wave abnormality, prolonged QT (qtc= 504) Impression Assessment and Plan CHEST PAIN Acute on chronic; cardiac etiology unlikely- had cardiac cath on 01/26/17 at [facility] which showed normal coronary arteries Initial troponin negative EKG- nonspecific T wave abnormality, no ST change Pain control with tramadol Monitor in telemetry Trend serial cardiac enzymes ACUTE ON CHRONIC ANEMIA Hg is 7.1- was 8.7 on 03/13, recent baseline approx 8-10 Possibly hemodilutional Check FOBT Recheck Hg in am HYPERTENSION BP elevated in ER Give lisinopril which was missed today Continue home lisinopril, carvedilol, amlodipine PRN hydralazine ESRD ON HD Dialyzes MWF- got half dialysis session today due to missed session Saturday Consult nephrology DM TYPE 2 Diet controlled Novolog sliding scale coverage DEPRESSION Continue Lexapro DVT PROPHYLAXIS SCD's and heparin SQ FULL CODE DISPOSITION Observation to telemetry Follows with Dr. Aldridge for primary care Patient seen in collaboration with Dr. Renea Diaz. Please see her addendum. Advanced Directives Existing Living Will: No Existing Power of Environmental Protection Officer: No VTE Prophylaxis VTE Risk Assessment Done? Y/N: Yes Risk Level: Moderate
[2017-03-20] MEDS ORDERED: GLUCOSE 40% GEL 15 GM TUBE PO PRN (18:30)
[2017-03-20] MEDS ORDERED: DEXTROSE 50% 50 ML SYR IV PRN (18:30)
[2017-03-20] MEDS ORDERED: GLUCOSE 10 TABS/TUBE PO PRN (18:30)
[2017-03-20] MEDS ORDERED: GLUCAGON FOR INJ 1 MG VIAL SQ PRN (18:30)
[2017-03-20] MEDS ORDERED: IV FLUIDS COMPLETED PRN (18:45)
[2017-03-20 18:58] VITALS: BP 161/99; PULSE 87
[2017-03-20] MEDS ORDERED: HYDROCODONE/ACETAMI 10/325 TAB PO ONE (20:34)
[2017-03-20] MEDS: TOBRAMYCIN SULF 0.3% OP SOLN 5 ML BTL OPL SCH (20:57)
[2017-03-20] MEDS: CARVEDILOL 3.125 MG TAB PO SCH (20:58)
[2017-03-20] MEDS: CALCIUM CARBONATE 500 MG CHEWABLE PO SCH (20:58)
[2017-03-20] MEDS: TRAZODONE HCL 50 MG TAB PO SCH (20:58)
[2017-03-20] MEDS: MIRTAZAPINE TAB 15 MG TAB PO SCH (20:58)
[2017-03-20] MEDS: DOXYCYCLINE HYCLATE 100 MG CAP PO SCH (20:59)
[2017-03-20 21:00] LABS: CKMB/CK RATIO 2.2 (0-3.0)
[2017-03-20] MEDS: INSULIN ASPART 100 UNITS/ML 3 ML PEN SC SCH (21:00)
[2017-03-20] MEDS: HEPARIN SOD 5000 UNIT/0.5 ML CARP SQ SCH (21:02)
[2017-03-20 23:45] VITALS: BP 163/102; PULSE 76; TEMP 36.5; O2SAT 95
[2017-03-21] VITALS (17 sets, daily range): BP systolic 155–203; BP diastolic 84–172; PULSE 74–81; TEMP 36.5–37; O2SAT 93–99
[2017-03-21 03:11] LABS: BUN/CREATININE RATIO 5.6 (10-20); CALCIUM 7.6 mg/dl (8.5-10.1); CKMB/CK RATIO 2.9 (0-3.0)
[2017-03-21 03:20] LABS: CREATININE 9.3 mg/dl (0.60-1.20)
[2017-03-21 03:21] LABS: POTASSIUM 5.3 mmol/L (3.5-5.1)
[2017-03-21 03:35] LABS: HEMATOCRIT 21.4 % (37-47); MEAN CELL VOLUME 97.3 fL (80-100); MEAN CORPUSCULAR HEMOGLOBIN 31.4 pg (25-34); MEAN CORPUSCULAR HGB CONC 32.2 g/dl (32-36); PLATELET COUNT 123 K/uL (130-400); WHITE BLOOD COUNT 3.63 K/uL (4.8-10.8)
[2017-03-21] MEDS: TOBRAMYCIN SULF 0.3% OP SOLN 5 ML BTL OPL SCH ×7 (04:00→23:41)
[2017-03-21] MEDS: HYDROCODONE/ACETAMI 10/325 TAB PO PRN ×3 (04:43→19:57)
[2017-03-21] MEDS: HEPARIN SOD 5000 UNIT/0.5 ML CARP SQ SCH ×3 (06:19→20:04)
[2017-03-21] MEDS: INSULIN ASPART 100 UNITS/ML 3 ML PEN SC SCH ×4 (07:00→20:05)
[2017-03-21] MEDS: CALCIUM ACETATE 667MG GELCAP PO SCH ×4 (07:30→16:48)
[2017-03-21] MEDS: CARVEDILOL 3.125 MG TAB PO SCH ×2 (07:47→20:00)
[2017-03-21] MEDS: ESCITALOPRAM OXALATE 20 MG TAB PO SCH (07:47)
[2017-03-21] MEDS: DOXYCYCLINE HYCLATE 100 MG CAP PO SCH ×2 (07:47→20:00)
[2017-03-21] MEDS: FAMOTIDINE 20 MG TAB PO SCH (07:48)
[2017-03-21] MEDS ORDERED: EPOETIN ALFA 10,000 UNITS/ML VIAL IV. ONE (08:45)
[2017-03-21] MEDS: AMLODIPINE BESYLATE 5 MG TAB PO SCH ×2 (09:00→13:23)
[2017-03-21] MEDS: LISINOPRIL 40 MG TAB PO SCH ×2 (09:00→13:23)
[2017-03-21] MEDS ORDERED: CALCIUM ACETATE 667MG GELCAP PO PRN (09:00)
[2017-03-21] MEDS ORDERED: EPOETIN ALFA INJ 12,000 UNITS in SYRINGE 0 ML IV. SCH (10:00)
--- NOTE | 2017-03-21 10:47 | Nephrology Consultation ---
Nephrology Consultation Date of Consultation: Mar 21, 2017. Attending Physician: Dr Victor Requesting Physician: Dr Diaz Reason for Consultation: ESRD on HD History of Present Illness 31 year old female w/ ESRD on MWF HD under observation since yesterday after shortening her HD tx by 2 hrs d/t chest pain. She had a cardiac cath last month showing no CAD. 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 She had 2 hrs of her tx yesterday. Today her sbp is elevated in 150-170s. Her hgb dropped this am to 6.9; K is 5.3. Of note, she missed 03/18 HD d/t acute illness >> had acute PCP visit and started tx for bronchitis as well as for conjunctivitis. Also was to see GI today in outpt clinic for eval of possible recurrent pancreatitis given her chronic N/V and recent lipase elevation. Currently feeling ok; feels bronchitis improving; no abd pain or N; chest pain resolved. PD cath flushed/dressing changed q saturday; for 04/01 start of PD training. Past Medical/Surgical History Medical Problems: (1) Acute chest pain Status: Acute (2) Acute electrocardiogram changes Status: Acute (3) Acute hyperkalemia Status: Acute (4) Altered mental status Status: Acute (5) Anemia Status: Acute (6) Anemia Status: Acute (7) ARF (acute renal failure) Status: Acute (8) Arm pain, left Status: Acute (9) Arm pain, left Status: Acute (10) Back pain Status: Acute (11) Cellulitis Status: Acute (12) Cellulitis of left upper extremity Status: Acute (13) Central abdominal pain Status: Acute (14) Chest wall pain Status: Acute (15) Cholecystitis Status: Acute (16) Complications, dialysis, catheter, mechanical Status: Acute (17) Costochondritis Status: Acute (18) Dependence on renal dialysis Status: Acute (19) End stage renal disease Status: Acute (20) Epigastric abdominal pain Status: Acute (21) ESRD (end stage renal disease) on dialysis Status: Acute (22) Headache Status: Acute (23) Hypocalcemia Status: Acute (24) Hypocalcemia Permanent Comment: She has severe Critical hypocalcemia from missing Dialysis for so long. Will give 4gm ivpb now. with dialysis it should improve further. Status: Acute (25) Non-cardiac chest pain Status: Acute (26) Obesity Status: Acute (27) Otitis media Status: Acute (28) Pancreatitis Status: Acute (29) Precordial chest pain Status: Acute (30) Renal failure Status: Acute (31) Renal failure Permanent Comment: She has ESRD but is super non complaint with Dialysis. has missed dialysis for more than 2 weeks. As a result has lot of biochemical indicators of missing Dialysis--very lot Hgb, very low Calcium and very high BUn and creatinine. Because her BUN and creat is so high she is at risk for Dysequlibrium syndrome. So to avoid that will have to slow incremental dialysis. Will do 2hrs today, low qb dialysis. tomorrow will be 3 hrs and then Saturday will be 4 hrs. She is c/o Pain at the CVC site but it looks fine on exam and the Imaging. Will know further with Dialysis. I am surprised that despite such low Ca++ she still looks fine and no Symptoms. Status: Chronic (32) Severe anemia Status: Acute (33) Sinusitis Status: Acute (34) Sinusitis Status: Acute (35) Substernal chest pain Status: Acute (36) Substernal chest pain Status: Acute ESRD tunneled line fistula placement pd catheter placement htn diabetes failed kidney transplant tubal ligation Family History Crohn's disease FATHER Diabetes mellitus MOTHER Hypertension SISTER Social History Smoking Status: Current Every Day Smoker (half pack per day) Alcohol Use: none Drug Use: none Marital Status: in relationship Housing Status: lives with family, lives with significant other Occupation Status: employed, other Allergies Coded Allergies: Cefaclor (Verified Allergy, Intermediate, Rash, 03/20/17) Reported by PT. Amoxicillin (Verified Adverse Reaction, Mild, VOMITING, 03/20/17) Clavulanic Acid (Verified Adverse Reaction, Mild, VOMITING, 03/20/17) Medications Current Inpatient Medications Medications (Trade) Dose Ordered Sig/[place] Route Start Time Stop Time Status Last Admin Dose Admin Albuterol (Ventolin Hfa Inhaler) 2 puffs QID PRN INH 03/20/17 16:45 04/19/17 16:44 Calcium Acetate (Phoslo Cap) 1,334 mg PRN PRN PO 03/21/17 09:00 04/20/17 08:59 Calcium Acetate (Phoslo Cap) 2,668 mg TIDM PO 03/21/17 07:30 04/20/17 07:59 Calcium Carbonate (Tums Chew Tab) 1,500 mg HS PO 03/20/17 21:00 04/19/17 20:59 03/20/17 20:58 1,500 MG Carvedilol (Coreg Tab) 3.125 mg BID PO 03/20/17 21:00 04/19/17 20:59 03/21/17 07:47 3.125 MG Escitalopram Oxalate (Lexapro Tab) 20 mg QAM PO 03/21/17 09:00 04/20/17 08:59 03/21/17 07:47 20 MG Famotidine (Pepcid Tab) 40 mg QAM PO 03/21/17 09:00 04/20/17 08:59 03/21/17 07:48 40 MG Fluticasone Propionate (Flonase Nasal [place] [facility]) 2 sprays DAILY PRN FRED 03/20/17 16:45 04/19/17 16:44 Lisinopril (Zestril Tab) 40 mg SuTuThSa@0900 PO 03/21/17 09:00 04/20/17 08:59 Mirtazapine (Remeron Tab) 30 mg HS PO 03/20/17 21:00 04/19/17 20:59 03/20/17 20:58 30 MG Tobramycin Sulfate (Tobrex Oph Soln) 1 drops Q4 OPL 03/20/17 20:00 03/30/17 19:59 03/21/17 07:46 1 DROPS Trazodone HCl (Desyrel Tab) 50 mg HS PO 03/20/17 21:00 04/19/17 20:59 03/20/17 20:58 50 MG Amlodipine Besylate (Norvasc Tab) 10 mg QAM PO 03/21/17 09:00 04/20/17 08:59 Heparin Sodium (Porcine) (Heparin Sq 5000 Unit/0.5ml) 5,000 unit Q8 SQ 03/20/17 22:00 8/25/17 21:59 03/21/17 06:19 5,000 UNIT Acetaminophen (Tylenol Tab) 650 mg Q4H PRN PO 03/20/17 16:45 04/19/17 16:44 03/20/17 18:16 650 MG Ondansetron HCl (Zofran Inj) 4 mg Q6H PRN IV 03/20/17 16:45 04/19/17 16:44 Nitroglycerin (Nitrostat Tab) 0.4 mg UD PRN SL 03/20/17 16:45 04/19/17 16:44 03/20/17 18:54 0.4 MG Polyethylene (Miralax Powder Packet) 17 gm DAILY PRN PO 03/20/17 16:45 04/19/17 16:44 Tramadol HCl (Ultram Tab) 50 mg Q4H PRN PO 03/20/17 17:45 04/19/17 17:44 03/20/17 19:06 50 MG Hydralazine HCl (HydrALAZINE INJ) 5 mg Q8H PRN IV. 03/20/17 17:45 04/19/17 17:44 Doxycycline Hyclate (Vibramycin Cap) 100 mg BID PO 03/20/17 21:00 03/30/17 20:59 03/21/17 07:47 100 MG Insulin Aspart (novoLOG ASPART) SLIDING SCALE If C... ACHS SC 03/20/17 21:00 04/19/17 20:59 Glucose (Glucose 40% Gel) 15-30 GRAMS 15 GRAMS... UD PRN PO 03/20/17 18:30 04/19/17 18:29 Glucose (Glucose Chew Tab) 4-8 Tablets 4 Tabl... UD PRN PO 03/20/17 18:30 04/19/17 18:29 Dextrose (Dextrose 50% 50ML Syringe) 25-50ML OF 50% DW IV FOR... UD PRN IV 03/20/17 18:30 04/19/17 18:29 Glucagon (Glucagon Inj) 1 mg UD PRN SQ 03/20/17 18:30 04/19/17 18:29 Miscellaneous (Iv Fluids Completed) 1 ea PRN PRN N/A 03/20/17 18:45 03/20/18 18:44 Acetaminophen/ Hydrocodone Bitart (Stirum 10/325 Tab) 1 tab Q6H PRN PO 03/20/17 20:45 04/03/17 20:44 03/21/17 04:43 1 TAB Home Meds and Scripts Medications Dose Route/Sig Max Daily Dose Days Date Category Dose Instructions Tobrex Oph Mary (Tobramycin Sulfate (Ophth)) 0.3 % Mary 1 Drop OPL Q4H 03/20/17 Reported Doxycycline Hyclate 100 Mg Tab 100 Mg PO BID 7 03/20/17 Reported Lisinopril 40 Mg Tab 40 Mg PO UD 03/06/17 Reported TAKE ONE TABLET EVERY MORNING ON NON DIALYSIS DAYS AND ON DAYS OF DIALYSIS TAKE ONE TABLET DAILY IN THE AFTERNOON Amlodipine Besylate 10 Mg Tab 10 Mg PO DAILY 03/06/17 Reported Flonase Allergy Relief (Fluticasone Propionate (Nasal)) 50 Mcg/Act Spr 2 Sprays FRED DAILY PRN 02/14/17 Reported Coreg (Carvedilol) 3.125 Mg Tab 3.125 Mg PO BID 02/09/17 Reported Pepcid (Famotidine) 40 Mg Tab 40 Mg PO QAM 01/22/17 Reported Tums (Calcium Carbonate) 500 Mg Chew 1,500 Mg PO HS 01/19/17 Reported Phoslo 667 Mg (Calcium Acetate) 667 Mg Cap 1,334 Mg PO WITH SNACKS 12/02/16 Reported TAKE 2 CAPSULES WITH SNACKS Escitalopram Oxalate 20 Mg Tab 20 Mg PO QAM 12/02/16 Reported Trazodone (Trazodone HCl) 50 Mg Tab 50 Mg PO HS 11/18/16 Reported Phoslo 667 Mg (Calcium Acetate) 667 Mg Cap 2,001 Mg PO WM 11/18/16 Reported TAKE 3 CAPSULES WITH MEALS Remeron (Mirtazapine) 30 Mg Tab 30 Mg PO HS 08/24/16 Reported Ventolin Hfa (Albuterol) 200 Puffs/72290 Mcg Aers 2 Puffs INH Q4H PRN 07/05/16 Reported Review of Systems Constitutional: No fever, No weight loss, No weakness, No fatigue Eyes: No worsening of vision ENT: No hearing loss Respiratory: + cough, No shortness of breath Cardiac: + see HPI, No chest pain, No edema, No palpitations Abdomen: No pain, No nausea, No vomiting, No diarrhea Musculoskeletal: No joint pain, No muscle pain Female : No dysuria Neuro: No memory loss, No weakness Psych: No depression symptoms, No anxiety Heme: No abnormal bleeding/bruising Endo: + fatigue Skin: No rash, No itch Physical Exam Date Time Temp Pulse Resp B/P (MAP) Pulse Ox O2 Delivery O2 Flow Rate FiO2 03/21/17 07:44 36.6 81 18 171/119 (136) 93 Room Air 03/21/17 04:45 36.5 79 18 158/84 (108) 95 Room Air 03/21/17 04:00 Room Air 03/21/17 00:00 Room Air 03/20/17 23:45 36.5 76 18 163/102 (122) 95 Room Air 03/20/17 18:58 87 161/99 (119) 03/20/17 18:24 166/96 (119) 03/20/17 18:04 37.0 84 20 184/119 (140) 100 Room Air 03/20/17 17:29 80 18 181/102 96 Room Air 03/20/17 17:27 Room Air 03/20/17 15:42 172/99 98 Room Air 03/20/17 15:04 75 03/20/17 14:45 72 16 185/116 99 Room Air 03/20/17 14:23 97 Room Air 03/20/17 14:23 97 Room Air 03/20/17 14:14 36.8 78 16 181/102 97 Room Air General Appearance: WD/WN, no apparent distress (lying flat on RA), + pertinent finding (occasional cough in exam non prod) Eyes: EOMI ENT: hearing grossly normal Neck: supple Respiratory/Chest: lungs clear Cardiovascular: regular rate, rhythm, no edema Abdomen: normal bowel sounds, non tender, soft, + pertinent finding (PD cath presnet) Extremities: no pedal edema, + pertinent finding (avf + t/b) Neurologic/Psych: alert, normal mood/affect, oriented x 3 Skin: no jaundice, warm/dry, + pallor Diagnostics Last 24 Hours Test 03/20/17 14:20 03/20/17 14:29 03/20/17 20:26 03/20/17 20:51 White Blood Count 4.31 K/uL Red Blood Count 2.23 M/uL Hemoglobin 7.1 g/dL Hematocrit 21.4 % Mean Corpuscular Volume 96.0 fL Mean Corpuscular Hemoglobin 31.8 pg Mean Corpuscular Hemoglobin Concent 33.2 g/dl RDW Standard Deviation 55.4 fL RDW Coefficient of Variation 15.8 % Platelet Count 149 K/uL Mean Platelet Volume 9.0 fL Prothrombin Time 10.4 SECONDS Prothromb Time International Ratio 1.0 Activated Partial Thromboplast Time 24.7 SECONDS Partial Thromboplastin Ratio 1.0 Sodium Level 138 mmol/L Potassium Level 4.0 mmol/L Chloride Level 98 mmol/L Carbon Dioxide Level 34 mmol/L Anion Gap 6.0 mmol/L Blood Urea Nitrogen 42 mg/dl Creatinine 7.30 mg/dl Est Creatinine Clear Calc Drug Dose 12.7 ml/min Estimated GFR () 7.9 Estimated GFR (Non- 6.8 BUN/Creatinine Ratio 5.7 Random Glucose 73 mg/dl Calcium Level 8.0 mg/dl Total Bilirubin 0.3 mg/dl Aspartate Amino Transf (AST/SGOT) 17 U/L Alanine Aminotransferase (ALT/SGPT) 23 U/L Alkaline Phosphatase 72 U/L Total Creatine Kinase 34 U/L 27 U/L Creatine Kinase MB < 0.5 ng/ml 0.6 ng/ml Creatine Kinase MB Ratio 2.2 Total Protein 6.5 gm/dl Albumin 2.8 gm/dl Globulin 3.7 gm/dl Albumin/Globulin Ratio 0.8 Human Chorionic Gonadotropin, Qual NEG Bedside Troponin I < 0.030 ng/ml Troponin I 0.036 ng/ml Bedside Glucose 107 mg/dl Test 03/21/17 02:00 03/21/17 08:06 White Blood Count 3.63 K/uL Red Blood Count 2.20 M/uL Hemoglobin 6.9 g/dL Hematocrit 21.4 % Mean Corpuscular Volume 97.3 fL Mean Corpuscular Hemoglobin 31.4 pg Mean Corpuscular Hemoglobin Concent 32.2 g/dl RDW Standard Deviation 55.8 fL RDW Coefficient of Variation 15.9 % Platelet Count 123 K/uL Mean Platelet Volume 9.0 fL Sodium Level 139 mmol/L Potassium Level 5.3 mmol/L Chloride Level 100 mmol/L Carbon Dioxide Level 31 mmol/L Anion Gap 8.0 mmol/L Blood Urea Nitrogen 52 mg/dl Creatinine 9.30 mg/dl Est Creatinine Clear Calc Drug Dose 10.0 ml/min Estimated GFR () 5.9 Estimated GFR (Non- 5.1 BUN/Creatinine Ratio 5.6 Random Glucose 83 mg/dl Calcium Level 7.6 mg/dl Total Creatine Kinase 24 U/L Creatine Kinase MB 0.7 ng/ml Creatine Kinase MB Ratio 2.9 Troponin I 0.038 ng/ml Bedside Glucose 85 mg/dl Diagnostic Radiology: cxr admission > mild vascular congestion Assessment & Plan 31 y/o F w/ ESRD on HD, chronic chest and abdominal pain/N under observation after developing chest pain at dialysis. ESRD on HD w/ PD cath present with early/mild pulmonary vascular congestion on CXR and HTN and worsening anemia >> will do 3 hr tx today to optimize volume status on 2 K bath, no heparin -no abd pain on exam or abd c/o >> flush / change dressing on PD cath tomorrow per routine as inpt or outpt Anemia of chronic disease -for 1 unit pRBC and will dose epo on HD aggressively Chest pain -none currently; cath results noted; per primary service Appreciate consult; will follow with you. Care coordinated w/ Dr Victor.
--- NOTE | 2017-03-21 16:26 | Progress Note ---
Internal Med Progress Note Date of Service: Mar 21, 2017. Provider Documentation: SUBJECTIVE: The patient was seen and examined Feels a lot better Denies any symptoms OBJECTIVE: Vital Signs-as noted below Exam: General-no distress at rest Eyes-Normal ENT-normal Neck-Supple Lungs-Clear to ausucltate bilaterally Heart-Regular Abdomen-benign,no masses,bowel sound present Extremities-No edema Neuro-AAOx3 Lab data as noted below. ASSESSMENT & PLAN: ACUTE ON CHRONIC ANEMIA-symptomatic Hg is 7.1- was 8.7 on 03/13, recent baseline approx 8-10 Check FOBT -pending Hb dropped to 6.9 this morning Will transfuse 1 unit PRBC CHEST PAIN Acute on chronic; cardiac etiology unlikely- had cardiac cath on 01/26/17 at [place] which showed normal coronary arteries Initial and subsequent troponin negative EKG- nonspecific T wave abnormality, no ST change Pain control with tramadol Monitor in telemetry-no arrhythmia Trend serial cardiac enzymes HYPERTENSION BP elevated in ER Give lisinopril which was missed today Continue home lisinopril, carvedilol, amlodipine PRN hydralazine ESRD ON HD Dialyzes MWF- got half dialysis session today due to missed session Saturday Consult nephrology-appreciate Input Will have HD DM TYPE 2 Diet controlled Novolog sliding scale coverage DEPRESSION Continue Lexapro DVT PROPHYLAXIS SCD's and heparin SQ FULL CODE DISPOSITION Observation to telemetry Follows with Dr. Aldridge for primary care Vital Signs: Date Time Temp Pulse Resp B/P (MAP) Pulse Ox O2 Delivery O2 Flow Rate FiO2 03/21/17 15:00 36.7 75 18 160/96 (117) 96 Room Air 03/21/17 13:12 36.9 76 181/111 (134) 03/21/17 12:55 79 174/100 03/21/17 12:30 74 171/97 03/21/17 12:20 37.0 75 17 173/104 99 0.0 03/21/17 12:00 76 176/103 03/21/17 11:30 76 179/121 03/21/17 11:00 75 173/98 03/21/17 10:52 79 203/172 03/21/17 10:46 79 171/102 03/21/17 10:35 36.6 78 183/111 (135) 03/21/17 08:00 Room Air 03/21/17 07:44 36.6 81 18 171/119 (136) 93 Room Air 03/21/17 04:45 36.5 79 18 158/84 (108) 95 Room Air 03/21/17 04:00 Room Air 03/21/17 00:00 Room Air 03/20/17 23:45 36.5 76 18 163/102 (122) 95 Room Air 03/20/17 18:58 87 161/99 (119) 03/20/17 18:24 166/96 (119) 03/20/17 18:04 37.0 84 20 184/119 (140) 100 Room Air 03/20/17 17:29 80 18 181/102 96 Room Air 03/20/17 17:27 Room Air Lab Results: Results Past 24 Hours Test 03/20/17 20:26 03/20/17 20:51 03/21/17 02:00 03/21/17 08:06 Range/Units Total Creatine Kinase 27 24 26-192 U/L Creatine Kinase MB 0.6 0.7 0.5-3.6 ng/ml Creatine Kinase MB Ratio 2.2 2.9 0-3.0 Troponin I 0.036 0.038 0-0.045 ng/ml Bedside Glucose 107 85 70-90 mg/dl White Blood Count 3.63 4.8-10.8 K/uL Red Blood Count 2.20 4.2-5.4 M/uL Hemoglobin 6.9 12.0-16.0 g/dL Hematocrit 21.4 37-47 % Mean Corpuscular Volume 97.3 80-100 fL Mean Corpuscular Hemoglobin 31.4 25-34 pg Mean Corpuscular Hemoglobin Concent 32.2 32-36 g/dl RDW Standard Deviation 55.8 36.4-46.3 fL RDW Coefficient of Variation 15.9 11.5-14.5 % Platelet Count 123 130-400 K/uL Mean Platelet Volume 9.0 7.4-10.4 fL Sodium Level 139 136-145 mmol/L Potassium Level 5.3 3.5-5.1 mmol/L Chloride Level 100 98-107 mmol/L Carbon Dioxide Level 31 21-32 mmol/L Anion Gap 8.0 3-11 mmol/L Blood Urea Nitrogen 52 7-18 mg/dl Creatinine 9.30 0.60-1.20 mg/dl Est Creatinine Clear Calc Drug Dose 10.0 ml/min Estimated GFR () 5.9 Estimated GFR (Non- 5.1 BUN/Creatinine Ratio 5.6 10-20 Random Glucose 83 70-99 mg/dl Calcium Level 7.6 8.5-10.1 mg/dl Test 03/21/17 12:32 03/21/17 13:17 Range/Units Hepatitis B Surface Antigen NEG NEG Bedside Glucose 70 70-90 mg/dl
[2017-03-21] MEDS: NITROGLYCERIN 0.4 MG SL PER TAB CHARGE SL PRN (19:21)
[2017-03-21] MEDS: ONDANSETRON INJ 2 MG/ML 2 ML VIAL IV PRN (19:32)
[2017-03-21] MEDS: HydrALAZINE HCL 20 MG/ML VIAL IV. PRN (19:33)
[2017-03-21] MEDS: CALCIUM CARBONATE 500 MG CHEWABLE PO SCH (20:00)
[2017-03-21] MEDS: MIRTAZAPINE TAB 15 MG TAB PO SCH (20:00)
[2017-03-21] MEDS: TRAZODONE HCL 50 MG TAB PO SCH (20:01)
[2017-03-22] VITALS (21 sets, daily range): BP systolic 129–184; BP diastolic 76–116; PULSE 74–96; TEMP 36.6–36.9; O2SAT 96–98
[2017-03-22] MEDS: HYDROCODONE/ACETAMI 10/325 TAB PO PRN ×2 (03:45→11:31)
[2017-03-22] MEDS: HydrALAZINE HCL 20 MG/ML VIAL IV. PRN (03:45)
[2017-03-22] MEDS: TOBRAMYCIN SULF 0.3% OP SOLN 5 ML BTL OPL SCH ×4 (04:00→16:00)
[2017-03-22 05:50] LABS: HEMATOCRIT 27.5 % (37-47); MEAN CELL VOLUME 96.5 fL (80-100); MEAN CORPUSCULAR HEMOGLOBIN 31.9 pg (25-34); MEAN CORPUSCULAR HGB CONC 33.1 g/dl (32-36); MEAN PLATELET VOLUME 9.7 fL (7.4-10.4); PLATELET COUNT 137 K/uL (130-400); RED BLOOD COUNT 2.85 M/uL (4.2-5.4); WHITE BLOOD COUNT 3.58 K/uL (4.8-10.8)
[2017-03-22] MEDS: HEPARIN SOD 5000 UNIT/0.5 ML CARP SQ SCH ×2 (06:00→14:00)
[2017-03-22 06:50] LABS: BUN/CREATININE RATIO 4.5 (10-20); CALCIUM 8.6 mg/dl (8.5-10.1); MAGNESIUM 2.3 mg/dl (1.8-2.4); POTASSIUM 4.6 mmol/L (3.5-5.1)
[2017-03-22] MEDS: INSULIN ASPART 100 UNITS/ML 3 ML PEN SC SCH ×3 (07:00→16:15)
[2017-03-22] MEDS: CALCIUM ACETATE 667MG GELCAP PO SCH ×3 (07:30→16:45)
[2017-03-22] MEDS ORDERED: HEPARIN SOD (PORCINE) 1000 UNIT/ML 10 ML VIAL IV SCH ×2 (08:00)
[2017-03-22] MEDS ORDERED: EPOETIN ALFA INJ 14,000 UNITS in SYRINGE 0 ML IV. SCH (08:00)
[2017-03-22] MEDS ORDERED: EPOETIN ALFA 10,000 UNITS/ML VIAL IV. ONE (08:00)
[2017-03-22] MEDS: AMLODIPINE BESYLATE 5 MG TAB PO SCH ×2 (09:00→12:00)
[2017-03-22] MEDS: CARVEDILOL 3.125 MG TAB PO SCH ×2 (09:00→12:01)
[2017-03-22] MEDS: FAMOTIDINE 20 MG TAB PO SCH ×2 (09:00→12:01)
[2017-03-22] MEDS: DOXYCYCLINE HYCLATE 100 MG CAP PO SCH ×2 (09:00→11:59)
[2017-03-22] MEDS: ESCITALOPRAM OXALATE 20 MG TAB PO SCH ×2 (09:00→12:00)
--- NOTE | 2017-03-22 09:46 | Dialysis Progress Note ---
Nephrology Dialysis Note Date of Service: Mar 22, 2017. Subjective no c/o abd pain or n; cc = bitemporal GARNETT but declines meds for it; getting intermittent mild chest discomfort, feels it is better Objective Date Time Temp Pulse Resp B/P (MAP) Pulse Ox O2 Delivery O2 Flow Rate FiO2 03/22/17 09:30 82 168/106 03/22/17 09:15 79 173/110 03/22/17 09:00 77 170/103 03/22/17 08:45 83 179/99 03/22/17 08:30 79 168/106 03/22/17 08:15 80 181/116 03/22/17 08:00 74 172/104 03/22/17 07:45 76 168/78 03/22/17 07:30 81 170/89 03/22/17 07:15 36.6 82 176/91 (119) 03/22/17 04:00 Room Air 03/22/17 03:34 36.9 81 16 184/105 (131) 96 Room Air 03/22/17 00:00 Room Air 03/21/17 23:35 36.9 79 18 161/94 (116) 94 Room Air 03/21/17 20:40 155/97 (116) 03/21/17 20:00 Room Air 03/21/17 19:10 76 20 170/104 (126) 03/21/17 19:05 36.9 77 20 168/109 (128) 95 Room Air 03/21/17 16:00 Room Air 03/21/17 15:00 36.7 75 18 160/96 (117) 96 Room Air 03/21/17 13:12 36.9 76 181/111 (134) 03/21/17 12:55 79 174/100 03/21/17 12:30 74 171/97 03/21/17 12:20 37.0 75 17 173/104 99 0.0 03/21/17 12:00 76 176/103 03/21/17 11:30 76 179/121 03/21/17 11:00 75 173/98 03/21/17 10:52 79 203/172 03/21/17 10:46 79 171/102 03/21/17 10:35 36.6 78 183/111 (135) Physical Exam: General-on ra or x 3 Eyes-eomi ENT-mmm Neck-supple Lungs-diminished but clear Heart-RRR ; no edmea Abdomen-soft NT +BS, PD cath present Extremities-no c/c/e; AVF +t/b Neuro-sandy, fluent speech Current Inpatient Medications Medications (Trade) Dose Ordered Sig/Sachin Route Start Time Stop Time Status Last Admin Dose Admin Albuterol (Ventolin Hfa Inhaler) 2 puffs QID PRN INH 03/20/17 16:45 04/19/17 16:44 Calcium Acetate (Phoslo Cap) 1,334 mg PRN PRN PO 03/21/17 09:00 04/20/17 08:59 Calcium Acetate (Phoslo Cap) 2,668 mg TIDM PO 03/21/17 07:30 04/20/17 07:59 03/21/17 16:48 2,668 MG Calcium Carbonate (Tums Chew Tab) 1,500 mg HS PO 03/20/17 21:00 04/19/17 20:59 03/21/17 20:00 1,500 MG Carvedilol (Coreg Tab) 3.125 mg BID PO 03/20/17 21:00 04/19/17 20:59 03/21/17 20:00 3.125 MG Escitalopram Oxalate (Lexapro Tab) 20 mg QAM PO 03/21/17 09:00 04/20/17 08:59 03/21/17 07:47 20 MG Famotidine (Pepcid Tab) 40 mg QAM PO 03/21/17 09:00 04/20/17 08:59 03/21/17 07:48 40 MG Fluticasone Propionate (Flonase Nasal [place]) 2 sprays DAILY PRN FRED 03/20/17 16:45 04/19/17 16:44 Lisinopril (Zestril Tab) 40 mg SuTuThSa@0900 PO 03/21/17 09:00 04/20/17 08:59 03/21/17 13:23 40 MG Mirtazapine (Remeron Tab) 30 mg HS PO 03/20/17 21:00 04/19/17 20:59 03/21/17 20:00 30 MG Tobramycin Sulfate (Tobrex Oph Soln) 1 drops Q4 OPL 03/20/17 20:00 03/30/17 19:59 03/22/17 04:00 1 DROPS Trazodone HCl (Desyrel Tab) 50 mg HS PO 03/20/17 21:00 04/19/17 20:59 03/21/17 20:01 50 MG Amlodipine Besylate (Norvasc Tab) 10 mg QAM PO 03/21/17 09:00 04/20/17 08:59 03/21/17 13:23 10 MG Heparin Sodium (Porcine) (Heparin Sq 5000 Unit/0.5ml) 5,000 unit Q8 SQ 03/20/17 22:00 04/19/17 21:59 03/21/17 20:04 5,000 UNIT Acetaminophen (Tylenol Tab) 650 mg Q4H PRN PO 03/20/17 16:45 04/19/17 16:44 03/20/17 18:16 650 MG Ondansetron HCl (Zofran Inj) 4 mg Q6H PRN IV 03/20/17 16:45 04/19/17 16:44 03/21/17 19:32 4 MG Nitroglycerin (Nitrostat Tab) 0.4 mg UD PRN SL 03/20/17 16:45 04/19/17 16:44 03/21/17 19:21 0.4 MG Polyethylene (Miralax Powder Packet) 17 gm DAILY PRN PO 03/20/17 16:45 04/19/17 16:44 Tramadol HCl (Ultram Tab) 50 mg Q4H PRN PO 03/20/17 17:45 04/19/17 17:44 03/20/17 19:06 50 MG Hydralazine HCl (HydrALAZINE INJ) 5 mg Q8H PRN IV. 03/20/17 17:45 04/19/17 17:44 03/22/17 03:45 5 MG Doxycycline Hyclate (Vibramycin Cap) 100 mg BID PO 03/20/17 21:00 03/30/17 20:59 03/21/17 20:00 100 MG Insulin Aspart (novoLOG ASPART) SLIDING SCALE If C... ACHS SC 03/20/17 21:00 04/19/17 20:59 Glucose (Glucose 40% Gel) 15-30 GRAMS 15 GRAMS... UD PRN PO 03/20/17 18:30 04/19/17 18:29 Glucose (Glucose Chew Tab) 4-8 Tablets 4 Tabl... UD PRN PO 03/20/17 18:30 04/19/17 18:29 Dextrose (Dextrose 50% 50ML Syringe) 25-50ML OF 50% DW IV FOR... UD PRN IV 03/20/17 18:30 04/19/17 18:29 Glucagon (Glucagon Inj) 1 mg UD PRN SQ 03/20/17 18:30 04/19/17 18:29 Miscellaneous (Iv Fluids Completed) 1 ea PRN PRN N/A 03/20/17 18:45 03/20/18 18:44 Acetaminophen/ Hydrocodone Bitart ([place] 10/325 Tab) 1 tab Q6H PRN PO 03/20/17 20:45 04/03/17 20:44 03/22/17 03:45 1 TAB Epoetin [place] [address]8319 units/ Syringe 0.7 ml @ 1 mls/min 0800 IV. 03/22/17 08:00 03/22/17 15:00 Diphenhydramine HCl (Benadryl Cap) 25 mg Q6H PRN PO 03/22/17 00:00 04/21/17 00:00 03/22/17 00:29 25 MG Heparin Sodium (Porcine) (Heparin Iv Bolus) 1,000 unit TODAY@0800 IV 03/22/17 08:00 03/22/17 23:59 Heparin Sodium (Porcine) (Heparin Iv Bolus) 400 unit TODAY@0800,0900,1000 IV 03/22/17 08:00 03/22/17 23:59 Last 24 Hours Test 03/21/17 12:32 03/21/17 13:17 03/21/17 16:21 03/21/17 20:16 Hepatitis B Surface Antigen NEG Bedside Glucose 70 mg/dl 91 mg/dl 92 mg/dl Test 03/22/17 05:12 03/22/17 07:03 White Blood Count 3.58 K/uL Red Blood Count 2.85 M/uL Hemoglobin 9.1 g/dL Hematocrit 27.5 % Mean Corpuscular Volume 96.5 fL Mean Corpuscular Hemoglobin 31.9 pg Mean Corpuscular Hemoglobin Concent 33.1 g/dl RDW Standard Deviation 56.9 fL RDW Coefficient of Variation 16.4 % Platelet Count 137 K/uL Mean Platelet Volume 9.7 fL Sodium Level 139 mmol/L Potassium Level 4.6 mmol/L Chloride Level 100 mmol/L Carbon Dioxide Level 32 mmol/L Anion Gap 7.0 mmol/L Blood Urea Nitrogen 32 mg/dl Creatinine 7.00 mg/dl Est Creatinine Clear Calc Drug Dose 12.9 ml/min Estimated GFR () 8.3 Estimated GFR (Non- 7.1 BUN/Creatinine Ratio 4.5 Random Glucose 89 mg/dl Calcium Level 8.6 mg/dl Phosphorus Level 5.0 mg/dl Magnesium Level 2.3 mg/dl Bedside Glucose 87 mg/dl Assessment & Plan 31 y/o F w/ ESRD on HD, chronic chest and abdominal pain/N under observation after developing chest pain at dialysis on 03/20. ESRD on HD w/ PD cath present for routine HD today with goal 2.5L UF min and minihep -no abd pain on exam or abd c/o >> flush / change dressing on PD cath tomorrow per routine as inpt or outpt -PD cath flushed/ dressing changed today Anemia of chronic disease -had 1 unit pRBC earlier; cont to dose epo on HD aggressively Chest pain -none currently; cath results noted; per primary service Appreciate consult; will follow with you.
[2017-03-22] MEDS: ONDANSETRON INJ 2 MG/ML 2 ML VIAL IV PRN (10:08)
--- NOTE | 2017-03-22 13:11 | Progress Note ---
Internal Med Progress Note Date of Service: Mar 22, 2017. Provider Documentation: SUBJECTIVE: The patient was seen and examined Feels a lot better Denies any symptoms Has had Dialysis this Morning Wants to go home OBJECTIVE: Vital Signs-as noted below Exam: General-no distress at rest Eyes-Normal ENT-normal Neck-Supple Lungs-Clear to ausucltate bilaterally Heart-Regular Abdomen-benign,no masses,bowel sound present Extremities-No edema Neuro-AAOx3 Lab data as noted below. ASSESSMENT & PLAN: ACUTE ON CHRONIC ANEMIA-symptomatic Hg is 7.1- was 8.7 on 03/13, recent baseline approx 8-10 Check FOBT -pending Hb dropped to 6.9 this morning Will transfuse 1 unit PRBC Hb 9.1 this morning Feels fine following Blood Transfusion CHEST PAIN Acute on chronic; cardiac etiology unlikely- had cardiac cath on 01/26/17 at [place] which showed normal coronary arteries Initial and subsequent troponin negative EKG- nonspecific T wave abnormality, no ST change Pain control with tramadol Monitor in telemetry-no arrhythmia Trend serial cardiac enzymes-negative for any ACS No more chest pain HYPERTENSION BP elevated in ER Give lisinopril which was missed today Continue home lisinopril, carvedilol, amlodipine PRN hydralazine Reasonably stable ESRD ON HD Dialyzes MWF- got half dialysis session today due to missed session Saturday Consult nephrology-appreciate Input Will have HD Continue HD DM TYPE 2 Diet controlled Novolog sliding scale coverage DEPRESSION Continue Lexapro DVT PROPHYLAXIS SCD's and heparin SQ FULL CODE DISPOSITION Observation to telemetry Follows with Dr. Aldridge for primary care Discharge home today Vital Signs: Date Time Temp Pulse Resp B/P (MAP) Pulse Ox O2 Delivery O2 Flow Rate FiO2 03/22/17 12:09 36.9 79 20 161/112 (128) 98 03/22/17 11:04 36.8 82 146/84 (104) 03/22/17 11:00 85 129/87 03/22/17 10:45 87 134/86 03/22/17 10:30 84 135/83 03/22/17 10:15 76 135/80 03/22/17 10:00 84 148/79 03/22/17 09:45 96 140/82 03/22/17 09:45 79 170/95 03/22/17 09:30 86 148/77 03/22/17 09:30 82 168/106 03/22/17 09:15 79 173/110 03/22/17 09:15 82 165/76 03/22/17 09:00 77 170/103 03/22/17 08:45 83 179/99 03/22/17 08:30 79 168/106 03/22/17 08:15 80 181/116 03/22/17 08:00 74 172/104 03/22/17 07:45 76 168/78 03/22/17 07:30 81 170/89 03/22/17 07:15 36.6 82 176/91 (119) 03/22/17 04:00 Room Air 03/22/17 03:34 36.9 81 16 184/105 (131) 96 Room Air 03/22/17 00:00 Room Air 03/21/17 23:35 36.9 79 18 161/94 (116) 94 Room Air 03/21/17 20:40 155/97 (116) 03/21/17 20:00 Room Air 03/21/17 19:10 76 20 170/104 (126) 03/21/17 19:05 36.9 77 20 168/109 (128) 95 Room Air 03/21/17 16:00 Room Air 03/21/17 15:00 36.7 75 18 160/96 (117) 96 Room Air 03/21/17 13:12 36.9 76 181/111 (134) Lab Results: Results Past 24 Hours Test 03/21/17 13:17 03/21/17 16:21 03/21/17 20:16 03/22/17 05:12 Range/Units Bedside Glucose 70 91 92 70-90 mg/dl White Blood Count 3.58 4.8-10.8 K/uL Red Blood Count 2.85 4.2-5.4 M/uL Hemoglobin 9.1 12.0-16.0 g/dL Hematocrit 27.5 37-47 % Mean Corpuscular Volume 96.5 80-100 fL Mean Corpuscular Hemoglobin 31.9 25-34 pg Mean Corpuscular Hemoglobin Concent 33.1 32-36 g/dl RDW Standard Deviation 56.9 36.4-46.3 fL RDW Coefficient of Variation 16.4 11.5-14.5 % Platelet Count 137 130-400 K/uL Mean Platelet Volume 9.7 7.4-10.4 fL Sodium Level 139 136-145 mmol/L Potassium Level 4.6 3.5-5.1 mmol/L Chloride Level 100 98-107 mmol/L Carbon Dioxide Level 32 21-32 mmol/L Anion Gap 7.0 3-11 mmol/L Blood Urea Nitrogen 32 7-18 mg/dl Creatinine 7.00 0.60-1.20 mg/dl Est Creatinine Clear Calc Drug Dose 12.9 ml/min Estimated GFR () 8.3 Estimated GFR (Non- 7.1 BUN/Creatinine Ratio 4.5 10-20 Random Glucose 89 70-99 mg/dl Calcium Level 8.6 8.5-10.1 mg/dl Phosphorus Level 5.0 2.5-4.9 mg/dl Magnesium Level 2.3 1.8-2.4 mg/dl Test 03/22/17 07:03 03/22/17 11:56 Range/Units Bedside Glucose 87 95 70-90 mg/dl
--- NOTE | 2017-03-22 14:54 | Discharge Instructions ---
Discharge Instructions Date of Service Mar 22, 2017. Admission Reason for Admission: Chest Pain Discharge Discharge Diagnosis / Problem: Chest pain-no ACS,Symptomatic Anemia-s/p 1 unit PRBC,ESRD Discharge Goals Goal(s): Prevent Disease Progression Activity Recommendations Activity Limitations: resume your previous activity . Instructions / Follow-Up Instructions / Follow-Up DR Aldridge on 03/27/17 at 3:15PM.Keep appointments fro Dialysis Current Hospital Diet Patient's current hospital diet: AHA Diet (Heart Healthy), Low Sodium Diet (2gm Na), Renal Diet Discharge Diet Recommended Diet: AHA Diet (Heart Healthy), Low Sodium Diet (2gm Na), Renal Diet Fluid Restriction: 2000 ml (8 cups) Pending Studies Studies pending at discharge: no Laboratory Results Hemoglobin A1c Test 01/23/17 04:25 Range/Units Estimated Average Glucose 97 mg/dl Hemoglobin A1c 5.0 4.5-5.6 % Medical Emergencies . Who to Call and When: Medical Emergencies: If at any time you feel your situation is an emergency, please call 911 immediately. . Non-Emergent Contact Non-Emergency issues call your: Primary Care Provider . Past History Medical & Surgical History: (1) Chest pain (2) DM2 (diabetes mellitus, type 2) (3) Anemia (4) CKD (chronic kidney disease) stage V requiring chronic dialysis (5) Hypertensive urgency (6) Kidney transplant status, living related donor (7) H/O knee surgery (8) H/O: (9) H/O tubal ligation . "Provider Documentation" section prepared by Juan Victor. . VTE Core Measure Inpt VTE Proph given/why not?: Unfractionated heparin SQ
--- NOTE | 2017-03-23 07:51 | Discharge Summary ---
Discharge Summary Date of Service Mar 23, 2017. Discharge Summary Admission Date: Mar 20, 2017 at 16:46 Discharge Date: Mar 22, 2017 Discharge Disposition: Home Principal Diagnosis: Chest pain-no ACS,Symptomatic Anemia-s/p 1 unit PRBC,ESRD Secondary Diagnoses/Problems: Please see H&P and Hospital Progress note Consultations: Nephrology Medication Reconciliation Continued Medications: Albuterol Hfa (Ventolin Hfa) 200 Puffs/58667 Mcg Aers 2 PUFFS INH Q4H PRN for SOB/Wheezing, INHALER Amlodipine Besylate (Amlodipine Besylate) 10 Mg Tab 10 MG PO DAILY Calcium Acetate (Phoslo 667 Mg) 667 Mg Cap 2001 MG PO WM, CAP TAKE 3 CAPSULES WITH MEALS Calcium Acetate (Phoslo 667 Mg) 667 Mg Cap 1334 MG PO WITH SNACKS, CAP TAKE 2 CAPSULES WITH SNACKS Calcium Carbonate (Tums) 500 Mg Chew 1500 MG PO HS Carvedilol (Coreg) 3.125 Mg Tab 3.125 MG PO BID Doxycycline Hyclate (Doxycycline Hyclate) 100 Mg Tab 100 MG PO BID for 7 Days, #14 TAB Escitalopram Oxalate (Escitalopram Oxalate) 20 Mg Tab 20 MG PO QAM Famotidine (Pepcid) 40 Mg Tab 40 MG PO QAM, TAB Fluticasone Propionate (Nasal) (Flonase Allergy Relief) 50 Mcg/Act Spr 2 SPRAYS FRED DAILY PRN for Nasal Congestion Lisinopril (Lisinopril) 40 Mg Tab 40 MG PO UD TAKE ONE TABLET EVERY MORNING ON NON DIALYSIS DAYS AND ON DAYS OF DIALYSIS TAKE ONE TABLET DAILY IN THE AFTERNOON Mirtazapine (Remeron) 30 Mg Tab 30 MG PO HS Tobramycin Sulfate (Ophth) (Tobrex Oph Mary) 0.3 % Mary 1 DROP OPL Q4H, #5 Trazodone Hcl (Trazodone) 50 Mg Tab 50 MG PO HS, TAB Admission Information HPI (per Admitting provider): This is a 31 year old female with PMH of ESRD on HD and other problems listed below who presents to the ED for chest pain. Patient was recently admitted from March 06-2016 for nausea, epigastric pain. On admission there was concern for acute pancreatitis given epigastric tenderness and lipase elevated to ~900. She was due to see GI in clinic tomorrow for eval of recurrent pancreatitis. On Saturday patient missed dialysis due to illness- was seen by Ilene LINDSAY and placed on doxycycline for acute sinusitis and bronchitis. Cough is now resolved and sinus symptoms improving. Was also placed on eye drops for L eye conjunctivitis which improved. Had dialysis today- half session was done. She was up 3 kg from her dry weight. [place] fine prior to dialysis, then during session she ate part of a sandwich then developed chest pain. She describes it as pressure in substernal area with radiation to her right shoulder blade. She states it is different from prior CP because it radiates to shoulder blade. States nitro en route helped briefly but gave her a headache. Patient had a cardiac catheterization on 01/26/17 at [facility] which showed normal coronaries. Feels mildly nauseous since arriving to ER. Has had diarrhea x 5 days. She denies diaphoresis, fever, chills, weakness, fatigue, SOB/wheezing, abdominal pain, acid reflux, vomiting, hematochezia, black tarry stools, dysuria , frequency, LE edema. No heavy lifting or increased anxiety. Had peritoneal dialysis catheter placed and hernia repair 1 month ago- healed well. Did not have her lisinopril yet today. Past Medical/Surgical History Medical Problems: (1) CKD (chronic kidney disease) stage V requiring chronic dialysis Status: Chronic (2) DM2 (diabetes mellitus, type 2) Status: Chronic (3) Focal segmental glomerulosclerosis Status: Chronic (4) HTN (hypertension) Status: Chronic (5) Migraine Status: Chronic (6) Renal failure Permanent Comment: She has ESRD but is super non complaint with Dialysis. has missed dialysis for more than 2 weeks. As a result has lot of biochemical indicators of missing Dialysis--very lot Hgb, very low Calcium and very high BUn and creatinine. Because her BUN and creat is so high she is at risk for Dysequlibrium syndrome. So to avoid that will have to slow incremental dialysis. Will do 2hrs today, low qb dialysis. tomorrow will be 3 hrs and then Saturday will be 4 hrs. She is c/o Pain at the CVC site but it looks fine on exam and the Imaging. Will know further with Dialysis. I am surprised that despite such low Ca++ she still looks fine and no Symptoms. Status: Chronic Surgical Problems: (1) H/O knee surgery Status: Chronic (2) H/O tubal ligation Status: Chronic (3) H/O: Status: Chronic (4) Kidney transplant status, living related donor Status: Chronic Social History Problems: (1) Kidney transplanted Status: Chronic Family History Crohn's disease FATHER Diabetes mellitus MOTHER Hypertension SISTER Social History Smoking Status: Current Every Day Smoker (half pack per day) Alcohol Use: occasionally (rare) Drug Use: none Marital Status: in relationship Housing status: lives with significant other Occupational Status: employed, other Immunizations History of Influenza Vaccine: Yes Influenza Vaccine Date: May 05, 2016 History of Tetanus Vaccine?: Yes Tetanus Immunization Date: Oct 09, 2011 History of Pneumococcal: Yes Pneumococcal Date: Dec 05, 2006 History of Hepatitis B Vaccine: Yes Hepatitis Immunization Date: May 21, 1998 Multi-Drug Resistant Organisms History of MDRO: No Allergies Coded Allergies: Cefaclor (Verified Allergy, Unknown, Rash, 03/20/17) Reported by PT. Amoxicillin (Verified Adverse Reaction, Unknown, VOMITING, 03/20/17) Clavulanic Acid (Verified Adverse Reaction, Unknown, VOMITING, 03/20/17) Home Medications Scheduled Amlodipine Besylate (Amlodipine Besylate), 10 MG PO DAILY Calcium Acetate (Phoslo 667 Mg), 2,001 MG PO WM Calcium Acetate (Phoslo 667 Mg), 1,334 MG PO WITH SNACKS Calcium Carbonate (Tums), 1,500 MG PO HS Carvedilol (Coreg), 3.125 MG PO BID Doxycycline Hyclate (Doxycycline Hyclate), 100 MG PO BID Escitalopram Oxalate (Escitalopram Oxalate), 20 MG PO QAM Famotidine (Pepcid), 40 MG PO QAM Lisinopril (Lisinopril), 40 MG PO UD Mirtazapine (Remeron), 30 MG PO HS Tobramycin Sulfate (Ophth) (Tobrex Oph Mary), 1 DROP OPL Q4H Trazodone Hcl (Trazodone), 50 MG PO HS Scheduled PRN Albuterol Hfa (Ventolin Hfa), 2 PUFFS INH Q4H PRN for SOB/Wheezing Fluticasone Propionate (Nasal) (Flonase Allergy Relief), 2 SPRAYS FRED DAILY PRN for Nasal Congestion Review of Systems Ten systems reviewed and negative except as noted in HPI. Physical Ex - H&P Physical Exam Vital Signs Date Time Temp Pulse Resp B/P (MAP) Pulse Ox O2 Delivery O2 Flow Rate FiO2 03/20/17 17:29 80 18 181/102 96 Room Air 03/20/17 17:27 Room Air 03/20/17 15:42 172/99 98 Room Air 03/20/17 15:04 75 03/20/17 14:45 72 16 185/116 99 Room Air 03/20/17 14:23 97 Room Air 03/20/17 14:23 97 Room Air 03/20/17 14:14 36.8 78 16 181/102 97 Room Air General Appearance: WD/WN, no apparent distress Head: normocephalic, atraumatic Eyes: normal inspection, PERRL, sclerae normal ENT: normal ENT inspection, hearing grossly normal, TMs normal, pharynx normal , + pertinent finding (no sinus tenderness) Neck: supple Respiratory/Chest: chest non-tender, lungs clear, normal breath sounds, no respiratory distress, no accessory muscle use Cardiovascular: regular rate, rhythm, no murmur Abdomen/GI: normal bowel sounds, non tender, soft, + pertinent finding (well healed incision from hernia repair, PD catheter present) Extremities/Musculoskelatal: normal capillary refill, no pedal edema Neurologic/Psych: alert, normal mood/affect, oriented x 3 Skin: normal color, warm/dry Diagnostics - H&P Diagnostics Laboratory Results Results Past 24 Hours Test 03/20/17 14:20 03/20/17 14:29 Range/Units White Blood Count 4.31 4.8-10.8 K/uL Red Blood Count 2.23 4.2-5.4 M/uL Hemoglobin 7.1 12.0-16.0 g/dL Hematocrit 21.4 37-47 % Mean Corpuscular Volume 96.0 80-100 fL Mean Corpuscular Hemoglobin 31.8 25-34 pg Mean Corpuscular Hemoglobin Concent 33.2 32-36 g/dl RDW Standard Deviation 55.4 36.4-46.3 fL RDW Coefficient of Variation 15.8 11.5-14.5 % Platelet Count 149 130-400 K/uL Mean Platelet Volume 9.0 7.4-10.4 fL Prothrombin Time 10.4 9.0-12.0 SECONDS Prothromb Time International Ratio 1.0 0.9-1.1 Activated Partial Thromboplast Time 24.7 21.0-31.0 SECONDS Partial Thromboplastin Ratio 1.0 Sodium Level 138 136-145 mmol/L Potassium Level 4.0 3.5-5.1 mmol/L Chloride Level 98 98-107 mmol/L Carbon Dioxide Level 34 21-32 mmol/L Anion Gap 6.0 3-11 mmol/L Blood Urea Nitrogen 42 7-18 mg/dl Creatinine 7.30 0.60-1.20 mg/dl Est Creatinine Clear Calc Drug Dose 12.7 ml/min Estimated GFR () 7.9 Estimated GFR (Non- 6.8 BUN/Creatinine Ratio 5.7 10-20 Random Glucose 73 70-99 mg/dl Calcium Level 8.0 8.5-10.1 mg/dl Total Bilirubin 0.3 0.2-1 mg/dl Aspartate Amino Transf (AST/SGOT) 17 15-37 U/L Alanine Aminotransferase (ALT/SGPT) 23 12-78 U/L Alkaline Phosphatase 72 45-117 U/L Total Creatine Kinase 34 26-192 U/L Creatine Kinase MB < 0.5 0.5-3.6 ng/ml Creatine Kinase MB Ratio 0-3.0 Total Protein 6.5 6.4-8.2 gm/dl Albumin 2.8 3.4-5.0 gm/dl Globulin 3.7 2.5-4.0 gm/dl Albumin/Globulin Ratio 0.8 0.9-2 Human Chorionic Gonadotropin, Qual NEG NEG Bedside Troponin I < 0.030 0-0.045 ng/ml Diagnostic Radiology SINGLE VIEW CHEST- per radiology IMPRESSION: Cardiomegaly with prominence of the central pulmonary vasculature. Correlate clinically for evidence of mild congestive failure. EKG NSR, 76 bpm, nonspecific T wave abnormality, prolonged QT (qtc= 504) Impression - H&P Impression Assessment and Plan CHEST PAIN Acute on chronic; cardiac etiology unlikely- had cardiac cath on 01/26/17 at [facility] which showed normal coronary arteries Initial troponin negative EKG- nonspecific T wave abnormality, no ST change Pain control with tramadol Monitor in telemetry Trend serial cardiac enzymes ACUTE ON CHRONIC ANEMIA Hg is 7.1- was 8.7 on 03/13, recent baseline approx 8-10 Possibly hemodilutional Check FOBT Recheck Hg in am HYPERTENSION BP elevated in ER Give lisinopril which was missed today Continue home lisinopril, carvedilol, amlodipine PRN hydralazine ESRD ON HD Dialyzes MWF- got half dialysis session today due to missed session Saturday Consult nephrology DM TYPE 2 Diet controlled Novolog sliding scale coverage DEPRESSION Continue Lexapro DVT PROPHYLAXIS SCD's and heparin SQ FULL CODE DISPOSITION Observation to telemetry Follows with Dr. Aldridge for primary care Patient seen in collaboration with Dr. Renea Diaz. Please see her addendum. Advanced Directives Existing Living Will: No Existing Power of Engine Repairer Production: No VTE Prophylaxis VTE Risk Assessment Done? Y/N: Yes Risk Level: Moderate Physical Exam (per Admitting): General Appearance: WD/WN, no apparent distress Head: normocephalic, atraumatic Eyes: normal inspection, PERRL, sclerae normal ENT: normal ENT inspection, hearing grossly normal, TMs normal, pharynx normal, + pertinent finding (no sinus tenderness) Neck: supple Respiratory/Chest: chest non-tender, lungs clear, normal breath sounds, no respiratory distress, no accessory muscle use Cardiovascular: regular rate, rhythm, no murmur Abdomen/GI: normal bowel sounds, non tender, soft, + pertinent finding ( well healed incision from hernia repair, PD catheter present) Extremities/Musculoskelatal: normal capillary refill, no pedal edema Neurologic/Psych: alert, normal mood/affect, oriented x 3 Skin: normal color, warm/dry Hospital Course ACUTE ON CHRONIC ANEMIA-symptomatic Hg is 7.1- was 8.7 on 03/13, recent baseline approx 8-10 Check FOBT -pending Hb dropped to 6.9 this morning Will transfuse 1 unit PRBC Hb 9.1 this morning Feels fine following Blood Transfusion CHEST PAIN Acute on chronic; cardiac etiology unlikely- had cardiac cath on 01/26/17 at [facility] which showed normal coronary arteries Initial and subsequent troponin negative EKG- nonspecific T wave abnormality, no ST change Pain control with tramadol Monitor in telemetry-no arrhythmia Trend serial cardiac enzymes-negative for any ACS No more chest pain HYPERTENSION BP elevated in ER Give lisinopril which was missed today Continue home lisinopril, carvedilol, amlodipine PRN hydralazine Reasonably stable ESRD ON HD Dialyzes MWF- got half dialysis session today due to missed session Saturday Consult nephrology-appreciate Input Will have HD Continue HD DM TYPE 2 Diet controlled Novolog sliding scale coverage DEPRESSION Continue Lexapro DVT PROPHYLAXIS SCD's and heparin SQ FULL CODE DISPOSITION Observation to telemetry Follows with Dr. Aldridge for primary care Discharge home today Total time spent on discharge = 35 minutes This includes examination of the patient, discharge planning, medication reconciliation, and communication with other providers. Discharge Instructions Date of Service Mar 22, 2017. Admission Reason for Admission: Chest Pain Discharge Discharge Diagnosis / Problem: Chest pain-no ACS,Symptomatic Anemia-s/p 1 unit PRBC,ESRD Discharge Goals Goal(s): Prevent Disease Progression Activity Recommendations Activity Limitations: resume your previous activity . Instructions / Follow-Up Instructions / Follow-Up DR Aldridge on 03/27/17 at 3:15PM.Keep appointments fro Dialysis Current Hospital Diet Patient's current hospital diet: AHA Diet (Heart Healthy), Low Sodium Diet (2gm Na), Renal Diet Discharge Diet Recommended Diet: AHA Diet (Heart Healthy), Low Sodium Diet (2gm Na), Renal Diet Fluid Restriction: 2000 ml (8 cups) Pending Studies Studies pending at discharge: no Laboratory Results Hemoglobin A1c Test 01/23/17 04:25 Range/Units Estimated Average Glucose 97 mg/dl Hemoglobin A1c 5.0 4.5-5.6 % Medical Emergencies . Who to Call and When: Medical Emergencies: If at any time you feel your situation is an emergency, please call 911 immediately. . Non-Emergent Contact Non-Emergency issues call your: Primary Care Provider . Past History Medical & Surgical History: (1) Chest pain (2) DM2 (diabetes mellitus, type 2) (3) Anemia (4) CKD (chronic kidney disease) stage V requiring chronic dialysis (5) Hypertensive urgency (6) Kidney transplant status, living related donor (7) H/O knee surgery (8) H/O: (9) H/O tubal ligation . "Provider Documentation" section prepared by Juan Victor. . VTE Core Measure Inpt VTE Proph given/why not?: Unfractionated heparin SQ <Electronically signed by Juan Victor M.D.> Signed: 03/22/17 3717 Additional Copies To Adolph Adlridge M.D.
[2017-04-24] MEDS ORDERED: CMD/25 PO (12:00)
[2017-04-26] MEDS ORDERED: CMD3 PO (16:37)
[2017-04-26] MEDS ORDERED: LISI20TA3 PO (16:37)
[2017-05-15] MEDS ORDERED: VNTHFA/IN INH ×2 (12:28)
[2017-05-15] MEDS ORDERED: LISI-725 PO (13:43)
[2017-05-15] MEDS ORDERED: CALC500C3 PO ×2 (13:50)
[2017-05-15] MEDS ORDERED: NRV/5 PO (15:17)
[2017-05-15] MEDS ORDERED: CRG125 PO (15:17)
[2017-05-15] MEDS ORDERED: BENZ100C7 PO (15:22)
[2017-05-15] MEDS ORDERED: CALC0.5C17 PO (18:14)
[2017-05-17] MEDS ORDERED: CRG25 PO (14:53)
[2017-05-21] MEDS ORDERED: APR25 PO (00:24)
[2017-05-21] MEDS ORDERED: ATV1 PO (15:28)
[2017-05-21] MEDS ORDERED: APR50 PO (15:28)
[2017-05-21] MEDS ORDERED: ativan PO (16:06)
== END 2017-03-22 17:28 | disposition home or self-care (01) ==
LOC: EDBD 14:00 → C.EDB 14:00 → C.2T 16:46 → ENRESERV 17:00
PROVIDERS: ADMIT Internal Medicine; ATTEND Internal Medicine
DX: R07.9 Chest pain, unspecified (principal); E11.22 Type 2 diabetes mellitus with diabetic chronic kidney disease; I12.0 Hypertensive chronic kidney disease with stage 5 chronic kidney disease or end stage renal disease; N18.6 End stage renal disease; D63.1 Anemia in chronic kidney disease; Z99.2 Dependence on renal dialysis; N26.9 Renal sclerosis, unspecified; E87.5 Hyperkalemia; F17.210 Nicotine dependence, cigarettes, uncomplicated; Z79.899 Other long term (current) drug therapy

== ENCOUNTER 2017-03-27 16:18 | Emergency (ER) | payer OTHER ==
[~2017-03-27] VITALS: Ht 167.6 cm; Wt 87.0 kg
[~2017-03-27 16:18] MED LIST changes: +DOXY100T PO; +TOBR0.3S4 OPL
[2017-03-27 16:21] VITALS: TEMP 36.8; Ht 167.6 cm; Wt 87.0 kg
[2017-03-27 16:49] LABS: BASO % 0.2 %; BASO ABS # 0.01 K/uL (0-0.2); COMPLETE YES; EOS % 5.6 %; LYMPH % 23.4 %; LYMPH ABS # 0.96 K/uL (1.2-3.4); MEAN CELL VOLUME 98.2 fL (80-100); MEAN CORPUSCULAR HEMOGLOBIN 31.6 pg (25-34); MEAN CORPUSCULAR HGB CONC 32.1 g/dl (32-36); MEAN PLATELET VOLUME 9.5 fL (7.4-10.4); MONO % 7.5 %; NEUT % 63.3 %; PLATELET COUNT 129 K/uL (130-400); RED BLOOD COUNT 2.85 M/uL (4.2-5.4); WHITE BLOOD COUNT 4.11 K/uL (4.8-10.8)
[2017-03-27 16:56] LABS: URINE APPEARANCE CLOUDY (CLEAR); URINE BILIRUBIN NEG (NEG); URINE COLOR YELLOW; URINE EPITHELIAL CELL AUTO >30 /lpf (0-5); URINE NITRITE NEG (NEG); URINE PH >= 9.0 (4.5-7.5); URINE SPECIFIC GRAVITY 1.009 (1.000-1.030); UROBILINOGEN NEG (NEG); ZZUR CULT IF INDIC CLEAN CATCH NO
[2017-03-27 16:57] LABS: MANUAL MICROSCOPIC REQUIRED? NO; REVIEW REQ? NO
[2017-03-27 17:05] LABS: SULFASALICYLIC ACID POS (NEG)
[2017-03-27 17:09] LABS: PREG INTERNAL NEGATIVE QC NEG CLEAR BACKGROUND; PREG INTERNAL POSITIVE QC POS CONTROL LINE
[2017-03-27 17:22] VITALS: BP 142/86; PULSE 81; O2SAT 98
[2017-03-27 17:24] LABS: ALKALINE PHOSPHATASE 71 U/L (45-117); ALT/SGPT 17 U/L (12-78); AST/SGOT 20 U/L (15-37); BLOOD UREA NITROGEN 47 mg/dl (7-18); BUN/CREATININE RATIO 4.9 (10-20); CALCIUM 8.2 mg/dl (8.5-10.1); CARBON DIOXIDE 32 mmol/L (21-32); CHLORIDE 101 mmol/L (98-107); GLUCOSE 154 mg/dl (70-99); POTASSIUM 4.8 mmol/L (3.5-5.1); SODIUM 139 mmol/L (136-145)
[2017-03-27] MEDS ORDERED: ONDANSETRON INJ 2 MG/ML 2 ML VIAL IV STA (17:31)
--- NOTE | 2017-03-27 17:31 | EMERGENCY ROOM VISIT NOTE ---
History Report prepared by Katia: Hannah Laureano Under the Supervision of: Dr. Baljit Lewis D.O. First contact with patient: 16:28 Chief Complaint: ABDOMINAL PAIN Stated Complaint: LOWER STOMACH CRAMPS Nursing Triage Summary: Pt reports mid abd cramping last night, returned today. Hx of pancreatitis, states this feels similar. Nausea. History of Present Illness The patient is a 31 year old female who presents to the Emergency Room with complaints of persistent abdominal pain starting last night. The patient has had pancreatitis 2 times in the past. She was discharged from the hospital 4 days ago. Last night she started having cramping in the left side of her abdomen which feels similar to her pancreatitis. She pain went away while she was sleeping, but came back when she woke up. The cramps have been steady since. She reports a pressure when she urinates. She has decreased appetite. She denies any other symptoms. She is urinating normally and eating and drinking well. Her last menstrual period just ended. 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 She is currently on dialysis. She has had a cholecystectomy in the past. Source of History: patient Onset: last night Position: abdomen (LLQ) Quality: cramping Timing: other (persistent) Note: Pt reports pressure when urinating, decreased appetite. Review of Systems See HPI for pertinent positives & negatives. A total of 10 systems reviewed and were otherwise negative. Past Medical & Surgical Medical Problems: (1) Abdominal pain (2) Chest pain (3) CKD (chronic kidney disease) stage V requiring chronic dialysis (4) DM2 (diabetes mellitus, type 2) (5) Focal segmental glomerulosclerosis (6) HTN (hypertension) (7) Hyperkalemia (8) Migraine (9) Renal failure (10) Syncope Surgical Problems: (1) H/O knee surgery (2) H/O tubal ligation (3) H/O: (4) Kidney transplant status, living related donor Social History Problems: (1) Kidney transplanted Family History Crohn's disease FATHER Diabetes mellitus MOTHER Hypertension SISTER Social History Smoking Status: Current Every Day Smoker Alcohol Use: none Drug Use: none Marital Status: in relationship Housing Status: lives with family, lives with significant other Occupation Status: employed, other Current/Historical Medications Scheduled Amlodipine Besylate (Amlodipine Besylate), 10 MG PO DAILY Calcium Acetate (Phoslo 667 Mg), 2,668 MG PO WM Calcium Acetate (Phoslo 667 Mg), 1,334 MG PO WITH SNACKS Calcium Carbonate (Tums), 1,500 MG PO HS Carvedilol (Coreg), 3.125 MG PO BID Escitalopram Oxalate (Escitalopram Oxalate), 20 MG PO QAM Famotidine (Pepcid), 40 MG PO QAM Lisinopril (Lisinopril), 40 MG PO UD Mirtazapine (Remeron), 30 MG PO HS Tobramycin Sulfate (Ophth) (Tobrex Oph Mary), 1 DROP OPL Q4H Trazodone Hcl (Trazodone), 50 MG PO HS Scheduled PRN Albuterol Hfa (Ventolin Hfa), 2 PUFFS INH Q4H PRN for SOB/Wheezing Fluticasone Propionate (Nasal) (Flonase Allergy Relief), 2 SPRAYS FRED DAILY PRN for Nasal Congestion Allergies Coded Allergies: Cefaclor (Verified Allergy, Intermediate, Rash, 03/27/17) Reported by PT. Amoxicillin (Verified Adverse Reaction, Mild, VOMITING, 03/27/17) Clavulanic Acid (Verified Adverse Reaction, Mild, VOMITING, 03/27/17) Physical Exam Vital Signs Date Time Temp Pulse Resp B/P (MAP) Pulse Ox O2 Delivery O2 Flow Rate FiO2 03/27/17 17:22 81 16 142/86 98 Room Air 03/27/17 16:21 36.8 94 18 159/96 98 Room Air Physical Exam CONSTITUTIONAL/VITAL SIGNS: Reviewed / noted above. GENERAL: Non-toxic in appearance. INTEGUMENTARY: Warm, dry, and [place]. HEAD: Normocephalic. EYES: without scleral icterus or trauma. ENT/OROPHARYNX: clear and moist. LYMPHADENOPATHY/NECK: Is supple without lymphadenopathy or meningismus. RESPIRATORY: Lungs clear and equal. CARDIOVASCULAR: Regular rate and rhythm. GI/ABDOMEN: Soft with mild tenderness to palpation of the LLQ and suprapubic area. Peritoneal drain in place in the LLQ, no surrounding redness or swelling to suggest infection. EXTREMITIES: Warm and well perfused. BACK: No CVA tenderness. NEUROLOGICAL: Intact without focal deficits. PSYCHIATRIC: normal affect. MUSCULOSKELETAL: Normally developed with good muscle tone. Medical Decision & Procedures Laboratory Results 03/27/17 16:37 Red Blood Count 2.85, Mean Corpuscular Volume 98.2, Mean Corpuscular Hemoglobin 31.6, Mean Corpuscular Hemoglobin Concent 32.1, Mean Platelet Volume 9.5, Neutrophils (%) (Auto) 63.3, Lymphocytes (%) (Auto) 23.4, Monocytes (%) (Auto) 7.5, Eosinophils (%) (Auto) 5.6, Basophils (%) (Auto) 0.2, Neutrophils # (Auto) 2.60, Lymphocytes # (Auto) 0.96, Monocytes # (Auto) 0.31, Eosinophils # (Auto) 0.23, Basophils # (Auto) 0.01 03/27/17 16:37 Test 03/27/17 16:37 03/27/17 16:45 White Blood Count 4.11 K/uL (4.8-10.8) Red Blood Count 2.85 M/uL (4.2-5.4) Hemoglobin 9.0 g/dL (12.0-16.0) Hematocrit 28.0 % (37-47) Mean Corpuscular Volume 98.2 fL (80-100) Mean Corpuscular Hemoglobin 31.6 pg (25-34) Mean Corpuscular Hemoglobin Concent 32.1 g/dl (32-36) Platelet Count 129 K/uL (130-400) Mean Platelet Volume 9.5 fL (7.4-10.4) Neutrophils (%) (Auto) 63.3 % Lymphocytes (%) (Auto) 23.4 % Monocytes (%) (Auto) 7.5 % Eosinophils (%) (Auto) 5.6 % Basophils (%) (Auto) 0.2 % Neutrophils # (Auto) 2.60 K/uL (1.4-6.5) Lymphocytes # (Auto) 0.96 K/uL (1.2-3.4) Monocytes # (Auto) 0.31 K/uL (0.11-0.59) Eosinophils # (Auto) 0.23 K/uL (0-0.5) Basophils # (Auto) 0.01 K/uL (0-0.2) RDW Standard Deviation 56.6 fL (36.4-46.3) RDW Coefficient of Variation 16.0 % (11.5-14.5) Immature Granulocyte % (Auto) 0.0 % Immature Granulocyte # (Auto) 0.00 K/uL (0.00-0.02) Anion Gap 6.0 mmol/L (3-11) Est Creatinine Clear Calc Drug Dose 9.4 ml/min Estimated GFR () 5.6 Estimated GFR (Non- 4.9 BUN/Creatinine Ratio 4.9 (10-20) Calcium Level 8.2 mg/dl (8.5-10.1) Total Bilirubin 0.3 mg/dl (0.2-1) Direct Bilirubin < 0.1 mg/dl (0-0.2) Aspartate Amino Transf (AST/SGOT) 20 U/L (15-37) Alanine Aminotransferase (ALT/SGPT) 17 U/L (12-78) Alkaline Phosphatase 71 U/L (45-117) Total Protein 6.9 gm/dl (6.4-8.2) Albumin 3.1 gm/dl (3.4-5.0) Lipase 295 U/L (73-393) Human Chorionic Gonadotropin, Qual NEG (NEG) Urine Color YELLOW Urine Appearance CLOUDY (CLEAR) Urine pH >= 9.0 (4.5-7.5) Urine Specific [place] 1.009 (1.000-1.030) Urine Protein 2+ (NEG) Urine Glucose (UA) 1+ (NEG) Urine Ketones NEG (NEG) Urine Occult Blood 3+ (NEG) Urine Nitrite NEG (NEG) Urine Bilirubin NEG (NEG) Urine Urobilinogen NEG (NEG) Urine Leukocyte Esterase NEG (NEG) Urine WBC (Auto) 1-5 /hpf (0-5) Urine RBC (Auto) 5-10 /hpf (0-4) Urine Hyaline Casts (Auto) 1-5 /lpf (0-5) Urine Epithelial Cells (Auto) >30 /lpf (0-5) Urine Bacteria (Auto) NEG (NEG) Laboratory results as stated above per my review. ED Course 1632: Previous medical records were reviewed. The patient was evaluated in room B4B. A complete history and physical examination was performed. 1731: Zofran Inj 4 mg IV. 1732: On reevaluation, the patient is resting comfortably. I discussed the results and findings with the patient. She verbalized agreement of the treatment plan. She was discharged home. Medical Decision Differential considered: pancreatitis, hepatitis, or acute cholecystitis, AAA, UTI, pyelonephritis, kidney stones, appendicitis, diverticulitis, shingles, bowel obstruction mesenteric ischemia, intussusception,hernia, ovarian torsion, ruptured ovarian cyst,ectopic , . This is a 31-year-old female who presents to the ED with a chief complaint of lower abdominal pain. The patient states that she just finished her period. She describes some lower abdominal cramps that started last night. She states that it does not feel like her period cramps. The patient is a kidney patient is going to be started on peritoneal dialysis soon. She has a peritoneal dialysis catheter in the left lower quadrant. The patient was admitted for abdominal pain March [address] scan of the abdomen and pelvis. This showed some postsurgical changes with regards to the peritoneal catheter but otherwise was unremarkable. The patient was again seen on March 20 and discharged with . I did review these records as well. The patient was concerned about pancreatitis. She reports a history of this. The patient's exam was unremarkable. She does have the peritoneal dialysis catheter left lower quadrant. There is mild tenderness in that region as well as in the suprapubic region. She did report some discomfort with urination as well. Urine did not show obvious infection. test is negative. Hemoglobin is 9. She has received blood transfusions in the recent past. Chemistry panel was unremarkable. BUN and creatinine are chronically elevated. She is a peritoneal dialysis patient. Lipase was normal. The patient was told the results. She is felt to be stable for discharge and outpatient follow-up. She was treated with some IV Zofran. The patient does not appear to be in pain. She was resting comfortably on the bed at the time of discharge. Medication Reconcilliation Current Medication List: was personally reviewed by me Blood Pressure Screening Patient's blood pressure: Elevated blood pressure Blood pressure disposition: Referred to PCP Impression Primary Impression: Lower abdominal pain Scribe Attestation The scribe's documentation has been prepared under my direction and personally reviewed by me in its entirety. I confirm that the note above accurately reflects all work, treatment, procedures, and medical decision making performed by me. Departure Information Dispostion Home / Self-Care Referrals Adolph Aldridge M.D. (PCP) Patient Instructions My [facility] Additional Instructions Follow-up with your doctor for further care and evaluation in 1-2 days. Return to the emergency department for worsening or new symptoms or any concerns. You have been examined and treated today on an emergency basis only. This is not a substitute for, or an effort to provide, complete comprehensive medical care. It is impossible to recognize and treat all injuries or illnesses in a single emergency department visit. It is therefore important that you follow up closely with your doctor. Call as soon as possible for an appointment.
[2017-04-24] MEDS ORDERED: CMD/25 PO (12:00)
[2017-04-26] MEDS ORDERED: CMD3 PO (16:37)
[2017-04-26] MEDS ORDERED: LISI20TA3 PO (16:37)
[2017-05-15] MEDS ORDERED: VNTHFA/IN INH ×2 (12:28)
[2017-05-15] MEDS ORDERED: LISI-725 PO (13:43)
[2017-05-15] MEDS ORDERED: CALC500C3 PO ×2 (13:50)
[2017-05-15] MEDS ORDERED: CRG125 PO (15:17)
[2017-05-15] MEDS ORDERED: NRV/5 PO (15:17)
[2017-05-15] MEDS ORDERED: BENZ100C7 PO (15:22)
[2017-05-15] MEDS ORDERED: CALC0.5C17 PO (18:14)
[2017-05-17] MEDS ORDERED: CRG25 PO (14:53)
[2017-05-21] MEDS ORDERED: APR25 PO (00:24)
[2017-05-21] MEDS ORDERED: ATV1 PO (15:28)
[2017-05-21] MEDS ORDERED: APR50 PO (15:28)
[2017-05-21] MEDS ORDERED: ativan PO (16:06)
== END 2017-03-27 17:42 | disposition home or self-care (01) ==
LOC: C.EDB 16:19
DX: R10.32 Left lower quadrant pain (principal); Z94.0 Kidney transplant status; E11.22 Type 2 diabetes mellitus with diabetic chronic kidney disease; N18.5 Chronic kidney disease, stage 5; I12.0 Hypertensive chronic kidney disease with stage 5 chronic kidney disease or end stage renal disease; Z99.2 Dependence on renal dialysis; F17.210 Nicotine dependence, cigarettes, uncomplicated; Z79.899 Other long term (current) drug therapy

== ENCOUNTER 2017-03-28 19:38 | Emergency (ER) | payer OTHER ==
[~2017-03-28] VITALS: Ht 167.6 cm; Wt 88.4 kg
[~2017-03-28 19:38] MED LIST changes: -ACET-1256 PO; -DOXY100T PO; -ZFRODT4HP PO
[2017-03-28 19:40] VITALS: BP 175/102; PULSE 90; TEMP 37.1; O2SAT 100; Ht 167.6 cm; Wt 88.4 kg
--- NOTE | 2017-03-28 23:49 | EMERGENCY ROOM VISIT NOTE ---
History First contact with patient: 19:49 Chief Complaint: OTHER COMPLAINT Stated Complaint: PAIN,REDNESS & PUS COMING FROM PD CATH History of Present Illness The patient is a 31 year old female who presents to the Emergency Room with complaints of possible infection around her peritoneal dialysis catheter. The patient states that she changed the dressing over her catheter this morning and noticed a yellow/green drainage. The patient had the catheter placed about 6 weeks ago, but is not actively using this for dialysis. The patient is well- known to this facility, with today being her sixth visit in the past month for various complaints. Her last visit was roughly 24 hours ago where she had blood work performed, and did not have this complaint. She rates her current discomfort a 4/10. She has not had a fever. Review of Systems More than 10 systems were reviewed and otherwise negative with the exception of history of present illness. Past Medical/Surgical History Medical Problems: (1) Abdominal pain (2) Chest pain (3) CKD (chronic kidney disease) stage V requiring chronic dialysis (4) DM2 (diabetes mellitus, type 2) (5) Focal segmental glomerulosclerosis (6) HTN (hypertension) (7) Hyperkalemia (8) Migraine (9) Renal failure (10) Syncope Surgical Problems: (1) H/O knee surgery (2) H/O tubal ligation (3) H/O: (4) Kidney transplant status, living related donor Social History Problems: (1) Kidney transplanted Family History Crohn's disease FATHER Diabetes mellitus MOTHER Hypertension SISTER Social History Smoking Status: Current Every Day Smoker Alcohol Use: none Drug Use: none Marital Status: in relationship Housing Status: lives with family, lives with significant other Occupation Status: employed, other Current/Historical Medications Scheduled Amlodipine Besylate (Amlodipine Besylate), 10 MG PO DAILY Calcium Acetate (Phoslo 667 Mg), 2,668 MG PO WM Calcium Acetate (Phoslo 667 Mg), 1,334 MG PO WITH SNACKS Calcium Carbonate (Tums), 1,500 MG PO HS Carvedilol (Coreg), 3.125 MG PO BID Escitalopram Oxalate (Escitalopram Oxalate), 20 MG PO QAM Famotidine (Pepcid), 40 MG PO QAM Lisinopril (Lisinopril), 40 MG PO UD Mirtazapine (Remeron), 30 MG PO HS Trazodone Hcl (Trazodone), 50 MG PO HS Scheduled PRN Albuterol Hfa (Ventolin Hfa), 2 PUFFS INH Q4H PRN for SOB/Wheezing Fluticasone Propionate (Nasal) (Flonase Allergy Relief), 2 SPRAYS FRED DAILY PRN for Nasal Congestion Physical Exam Vital Signs Date Time Temp Pulse Resp B/P (MAP) Pulse Ox O2 Delivery O2 Flow Rate FiO2 03/28/17 19:40 37.1 90 18 175/102 100 Room Air Pain Rating (0-10): 0 Physical Exam VITALS: Vitals are noted on the nurse's note and reviewed by myself. Vital signs stable. GENERAL: Well-developed, well-nourished, white female, who is in no acute distress and resting comfortably. Patient is cooperative with the examination. HEART: Regular rate and rhythm without murmurs gallops or rubs. LUNGS: Clear to auscultation bilaterally without wheezes, rales or rhonchi. No retractions or accessory muscle use. ABDOMEN: Positive normal bowel sounds x 4. Soft, nontender, without masses or organomegaly. No guarding or rebound tenderness. Inspection of the peritoneal dialysis catheter does not show any evidence of induration, abscess, cellulitis , or obvious infection. There is no drainage or discharge appreciated. No palpable mass. Medical Decision & Procedures ED Course Physical exam and history were performed. Nursing notes, EMR, and Medication List were personally reviewed. Patient appears to have reports of drainage from her peritoneal dialysis catheter earlier today. On examination do not appreciate any significant findings. The catheter appears well positioned without evidence of infection. The patient does not appear toxic. She has been here very frequently over the past 30 days, and I do not feel that additional blood work is necessary at this time. The patient needs to follow with her specialist for appropriate care. She was otherwise invited back to the ER with any new, worsening, or concerning symptoms. The chart was completed utilizing [employer] Voice Recognition Software. Grammatical errors, random word insertions, pronoun errors, and incomplete sentences are an occasional consequence of this system due to software limitations, ambient noise, and hardware issues. Any formal questions or concerns about the content, text, or information contained within the body of this dictation should be directly addressed to the provider for clarification. . Medical Decision Differential diagnosis: Etiologies such as cellulitis, abscess, MRSA infection, DVT, necrotizing fasciitis, dermatitis, drug eruption, as well as others were entertained.. Medication Reconcilliation Current Medication List: was personally reviewed by me Blood Pressure Screening Patient's blood pressure: Elevated blood pressure Blood pressure disposition: Referred to PCP Impression Primary Impression: Peritoneal dialysis catheter in place Departure Information Dispostion Home / Self-Care Condition GOOD Referrals Adolph Aldridge M.D. (PCP) Forms HOME CARE DOCUMENTATION FORM, IMPORTANT VISIT INFORMATION Patient Instructions My [facility] Additional Instructions You were seen and evaluated today on an emergency basis only. This is not a substitute for, or an effort to provide, complete comprehensive medical care. It is not possible to recognize and treat all injuries or illnesses in a single emergency department visit. For this reason it is recommended that you followup with Dr. Claudio or your health plan specialist next week for a recheck. You are welcome to return to the emergency department anytime with new, worsening, or concerning symptoms.
[2017-04-24] MEDS ORDERED: CMD/25 PO (12:00)
[2017-04-26] MEDS ORDERED: LISI20TA3 PO (16:37)
[2017-04-26] MEDS ORDERED: CMD3 PO (16:37)
[2017-05-15] MEDS ORDERED: VNTHFA/IN INH (12:28)
[2017-05-15] MEDS ORDERED: LISI-725 PO (13:43)
[2017-05-15] MEDS ORDERED: CALC500C3 PO (13:50)
[2017-05-15] MEDS ORDERED: NRV/5 PO (15:17)
[2017-05-15] MEDS ORDERED: CRG125 PO (15:17)
[2017-05-15] MEDS ORDERED: BENZ100C7 PO (15:22)
[2017-05-15] MEDS ORDERED: FLUT0.15 NAE (15:33)
[2017-05-15] MEDS ORDERED: CALC0.5C17 PO (18:14)
[2017-05-15] MEDS ORDERED: MIRT30TA3 PO (19:24)
[2017-05-15] MEDS ORDERED: TRAZ50TA35 PO (19:56)
[2017-05-15] MEDS ORDERED: CALC667C4 PO ×2 (19:56→21:12)
[2017-05-15] MEDS ORDERED: LXP/20 PO (21:08)
[2017-05-15] MEDS ORDERED: FAMO40TA6 PO (23:12)
[2017-05-17] MEDS ORDERED: CRG25 PO (14:53)
[2017-05-21] MEDS ORDERED: APR25 PO (00:24)
[2017-05-21] MEDS ORDERED: APR50 PO (15:28)
[2017-05-21] MEDS ORDERED: ATV1 PO (15:28)
[2017-05-21] MEDS ORDERED: ativan PO (16:06)
== END 2017-03-28 20:15 | disposition home or self-care (01) ==
LOC: C.EDB 19:40 → C.EDA 20:15
DX: T85.9XXA Unspecified complication of internal prosthetic device, implant and graft, initial encounter (principal); X58.XXXA Exposure to other specified factors, initial encounter; I12.9 Hypertensive chronic kidney disease with stage 1 through stage 4 chronic kidney disease, or unspecified chronic kidney disease; N18.5 Chronic kidney disease, stage 5; E11.9 Type 2 diabetes mellitus without complications; F17.200 Nicotine dependence, unspecified, uncomplicated; Z98.51 Tubal ligation status; Z94.0 Kidney transplant status; Z98.890 Other specified postprocedural states; Z79.899 Other long term (current) drug therapy; Z83.79 Family history of other diseases of the digestive system; Z83.3 Family history of diabetes mellitus; Z82.49 Family history of ischemic heart disease and other diseases of the circulatory system

== ENCOUNTER 2017-04-03 11:46 | Emergency (ER) | payer OTHER ==
[~2017-04-03] VITALS: Ht 167.6 cm; Wt 92.9 kg
[~2017-04-03 11:46] MED LIST changes: -TOBR0.3S4 OPL
[2017-04-03 11:48] VITALS: TEMP 36.7; Ht 167.6 cm; Wt 92.9 kg
--- NOTE | 2017-04-03 12:29 | EMERGENCY ROOM VISIT NOTE ---
History Report prepared by Katia: Dana Munson Under the Supervision of: Dr. Karan Santiago M.D. First contact with patient: 12:24 Chief Complaint: ABDOMINAL PAIN Stated Complaint: STOMACH CRAMPING Nursing Triage Summary: pt states she his a dialysis patient. patient had peritoneal dialysis at home before she came to ER> patient states she has peritoneal dialysis 4 x day pt c/o abdominal cramping and diarrhea for past hour. pt called PCP and was told to come to ER. hx pancreatitis History of Present Illness The patient is a 31 year old white female with a past medical history of CKD stage V, FSGS, and pancreatitis who presents to the ED with a cc of diffuse abdominal pain beginning earlier today. Positive diarrhea. Negative fevers, chills, cough, nausea, vomiting, urinary symptoms, recent travel, recent trauma or falls. The patient is a dialysis patient and states that she receives dialysis at home 4x daily. She had a PD catheter placed on 03/23. Today she started experiencing abdominal cramping and diarrhea. She rates her pain as a 10 /10 in severity. She called her GI doctor and was advised to come to the ED for further evaluation. Pt denies any modifying factors. She notes that 3 weeks ago she was diagnosed with pancreatitis. Her LNMP was 2 weeks ago. Source of History: patient Onset: earlier today Position: abdomen (diffuse) Symptom Intensity: 10/10 Quality: cramping Timing: constant Associated Symptoms: + diarrhea, No fevers, No chills, No cough, No nausea, No vomiting, No urinary symptoms Review of Systems See HPI for pertinent positives and negatives. A total of ten systems were reviewed and were otherwise negative. Past Medical & Surgical Medical Problems: (1) Abdominal pain (2) Chest pain (3) CKD (chronic kidney disease) stage V requiring chronic dialysis (4) DM2 (diabetes mellitus, type 2) (5) Focal segmental glomerulosclerosis (6) HTN (hypertension) (7) Hyperkalemia (8) Migraine (9) Renal failure (10) Syncope Surgical Problems: (1) H/O knee surgery (2) H/O tubal ligation (3) H/O: (4) Kidney transplant status, living related donor Social History Problems: (1) Kidney transplanted Family History Crohn's disease FATHER Diabetes mellitus MOTHER Hypertension SISTER Social History Smoking Status: Current Every Day Smoker Alcohol Use: none Drug Use: none Marital Status: in relationship Housing Status: lives with family, lives with significant other Occupation Status: employed, other Current/Historical Medications Scheduled Amlodipine Besylate (Amlodipine Besylate), 10 MG PO DAILY Calcium Acetate (Phoslo 667 Mg), 2,668 MG PO WM Calcium Acetate (Phoslo 667 Mg), 1,334 MG PO WITH SNACKS Calcium Carbonate (Tums), 1,500 MG PO HS Carvedilol (Coreg), 3.125 MG PO BID Escitalopram Oxalate (Escitalopram Oxalate), 20 MG PO QAM Famotidine (Pepcid), 40 MG PO QAM Lisinopril (Lisinopril), 40 MG PO DAILY Mirtazapine (Remeron), 30 MG PO HS Ondasetron Odt (Zofran Odt), 4 MG SL Q6H Trazodone Hcl (Trazodone), 50 MG PO HS Scheduled PRN Albuterol Hfa (Ventolin Hfa), 2 PUFFS INH Q4H PRN for SOB/Wheezing Fluticasone Propionate (Nasal) (Flonase Allergy Relief), 2 SPRAYS FRED DAILY PRN for Nasal Congestion Tramadol (Ultram), 1 TAB PO BID PRN for Pain Allergies Coded Allergies: Cefaclor (Verified Allergy, Intermediate, Rash, 03/28/17) Reported by PT. Amoxicillin (Verified Adverse Reaction, Mild, VOMITING, 03/28/17) Clavulanic Acid (Verified Adverse Reaction, Mild, VOMITING, 03/28/17) Physical Exam Vital Signs Date Time Temp Pulse Resp B/P (MAP) Pulse Ox O2 Delivery O2 Flow Rate FiO2 04/03/17 16:39 77 16 166/108 100 04/03/17 16:25 74 162/115 97 Room Air 04/03/17 15:10 77 16 164/103 94 Room Air 04/03/17 14:20 78 04/03/17 13:42 82 20 177/111 94 Room Air 04/03/17 11:48 36.7 88 20 191/113 99 Room Air Physical Exam GENERAL: Awake, alert, well-appearing, NAD HENT: Normocephalic, atraumatic. EYES: Normal conjunctiva. Sclera non-icteric. NECK: Supple. No nuchal rigidity. FROM. RESPIRATORY: CTAB, no rhonchi, wheezing, crackles CARDIAC: RRR, no MRG ABDOMEN: Soft, epigastric and LUQ TTP, no suprapubic or lower abdominal tenderness, BS+. Right PD catheter noted left umbilicus, no erythema, no purulence, CDI. MSK: No chest wall TTP, no LE edema NEURO: GCS 15, CN 2-12 intact, moves all 4s on command SKIN: No rash or jaundice noted. Medical Decision & Procedures Laboratory Results 04/03/17 13:08 Red Blood Count 2.99, Mean Corpuscular Volume 97.7, Mean Corpuscular Hemoglobin 32.1, Mean Corpuscular Hemoglobin Concent 32.9, Mean Platelet Volume 9.6, Neutrophils (%) (Auto) 64.5, Lymphocytes (%) (Auto) 20.4, Monocytes (%) (Auto) 7.7, Eosinophils (%) (Auto) 6.8, Basophils (%) (Auto) 0.4, Neutrophils # (Auto) 3.03, Lymphocytes # (Auto) 0.96, Monocytes # (Auto) 0.36, Eosinophils # (Auto) 0.32, Basophils # (Auto) 0.02 04/03/17 13:08 Test 04/03/17 13:08 04/03/17 13:15 04/03/17 13:27 White Blood Count 4.70 K/uL (4.8-10.8) Red Blood Count 2.99 M/uL (4.2-5.4) Hemoglobin 9.6 g/dL (12.0-16.0) Hematocrit 29.2 % (37-47) Mean Corpuscular Volume 97.7 fL (80-100) Mean Corpuscular Hemoglobin 32.1 pg (25-34) Mean Corpuscular Hemoglobin Concent 32.9 g/dl (32-36) Platelet Count 168 K/uL (130-400) Mean Platelet Volume 9.6 fL (7.4-10.4) Neutrophils (%) (Auto) 64.5 % Lymphocytes (%) (Auto) 20.4 % Monocytes (%) (Auto) 7.7 % Eosinophils (%) (Auto) 6.8 % Basophils (%) (Auto) 0.4 % Neutrophils # (Auto) 3.03 K/uL (1.4-6.5) Lymphocytes # (Auto) 0.96 K/uL (1.2-3.4) Monocytes # (Auto) 0.36 K/uL (0.11-0.59) Eosinophils # (Auto) 0.32 K/uL (0-0.5) Basophils # (Auto) 0.02 K/uL (0-0.2) RDW Standard Deviation 57.6 fL (36.4-46.3) RDW Coefficient of Variation 16.1 % (11.5-14.5) Immature Granulocyte % (Auto) 0.2 % Immature Granulocyte # (Auto) 0.01 K/uL (0.00-0.02) Venous Blood pH 7.35 (7.36-7.41) Venous Blood Partial Pressure CO2 45 mmHg (38.0-50.0) Venous Blood Partial Pressure O2 36 mmHg Venous Blood HCO3 24 mmol/L Venous Blood Oxygen Saturation < 60.0 % Venous Blood Base Excess -1.4 mEq/L Anion Gap 11.0 mmol/L (3-11) Est Creatinine Clear Calc Drug Dose 7.2 ml/min Estimated GFR () 3.9 Estimated GFR (Non- 3.4 BUN/Creatinine Ratio 5.4 (10-20) Calcium Level 8.3 mg/dl (8.5-10.1) Total Bilirubin 0.5 mg/dl (0.2-1) Direct Bilirubin 0.1 mg/dl (0-0.2) Aspartate Amino Transf (AST/SGOT) 16 U/L (15-37) Alanine Aminotransferase (ALT/SGPT) 22 U/L (12-78) Alkaline Phosphatase 80 U/L (45-117) Total Protein 7.5 gm/dl (6.4-8.2) Albumin 3.4 gm/dl (3.4-5.0) Lipase 216 U/L (73-393) Urine Color YELLOW Urine Appearance CLOUDY (CLEAR) Urine pH >= 9.0 (4.5-7.5) Urine Specific [place] 1.013 (1.000-1.030) Urine Protein 1+ (NEG) Urine Glucose (UA) TRACE (NEG) Urine Ketones NEG (NEG) Urine Occult Blood 1+ (NEG) Urine Nitrite NEG (NEG) Urine Bilirubin NEG (NEG) Urine Urobilinogen NEG (NEG) Urine Leukocyte Esterase MODERATE (NEG) Urine WBC (Auto) >30 /hpf (0-5) Urine RBC (Auto) 0-4 /hpf (0-4) Urine Hyaline Casts (Auto) 1-5 /lpf (0-5) Urine Epithelial Cells (Auto) >30 /lpf (0-5) Urine Bacteria (Auto) 2+ (NEG) Urine Crystals AMORPHOUS SEDIMENT (NONE Urine Yeast (Auto) (NONE PRSENT) Urine Test NEG (NEG) Bedside Lactic Acid Venous 0.70 mmol/L (0.90-1.70) Laboratory results reviewed by me. Medications Administered Medications (Trade) Dose Ordered Sig/Sachin Route Start Time Stop Time Status Last Admin Dose Admin Sodium Chloride 1,000 ml @ 999 mls/hr Q1H1M STAT IV 04/03/17 12:57 04/03/17 13:57 DC 04/03/17 13:31 999 MLS/HR Ondansetron HCl (Zofran Inj) 4 mg NOW STAT IV 04/03/17 12:57 04/03/17 12:59 DC 04/03/17 13:33 4 MG Fentanyl Citrate (Fentanyl Inj) 100 mcg Q20M PRN IV 04/03/17 13:00 04/03/17 16:58 DC 04/03/17 13:34 100 MCG Acetaminophen (Tylenol Tab) 1,000 mg NOW STAT PO 04/03/17 12:57 04/03/17 12:59 DC 04/03/17 13:32 1,000 MG Tramadol HCl (Ultram Tab) 50 mg NOW STAT PO 04/03/17 14:47 04/03/17 14:48 DC 04/03/17 15:10 50 MG Cyclobenzaprine HCl (Flexeril Tab) 10 mg ONE STAT PO 04/03/17 14:47 04/03/17 14:48 DC 04/03/17 15:10 10 MG ED Course 1224: The patient was evaluated in room C2B. A complete history and physical exam was performed. 1257: Tylenol tab 1000 mg PO, Zofran 4 mg IV, NSS 1000 ml @ 999 mls/hr IV 1300: Fentanyl 100 mcg IV - PRN 1420: I updated the patient. 1447: Flexeril 10 mg PO, Ultram tab 50 mg PO 1609: I reassessed the patient at this time. She is feeling better and resting comfortably. I discussed the results and treatment plan with the patient. I answered all pertaining questions that she had. She expressed understanding and verbalized agreement. The patient will be discharged home. Medical Decision Differential diagnoses includes pancreatitis, UTI, PUD, gastritis, hepatitis, SBP. The patient is a 31 year old white female with a past medical history of CKD stage V and FSGS who presents to the ED with a cc of diffuse abdominal pain beginning last night. Patient is mainly concerned about possible pancreatitis. Patient did have a recent peritoneal dialysis catheter placement to the left side of her abdomen which has been ongoing and proceeding well. Patient denied any fevers or chills. Less likely SBP given the localized tenderness of her abdominal pain. Furthermore patient did not have an elevated white count and lactate. This likely pancreatitis given the normal lipase. Patient urine likely contaminated given the lack of symptoms in addition to her abdominal pain that was more superior to the umbilicus. Patient did have elevated BUN/creatinine over this is explained by her CK D and necessity for peritoneal dialysis. Patient was given additional pain medications which improved her pain. Patient had no emesis and pain resolved here in the emergency department. Patient was given strict follow-up, discharge, return precautions. Patient agreed with plan of care and patient was discharged home. Medication Reconciliation: I attest that I have personally reviewed the patient' s current medication list Blood pressure screening: Patient was found to have an elevated blood pressure and was referred to their primary doctor for recheck and further treatment. Impression Primary Impression: Abdominal pain Scribe Attestation The scribe's documentation has been prepared under my direction and personally reviewed by me in its entirety. I confirm that the note above accurately reflects all work, treatment, procedures, and medical decision making performed by me. Departure Information Dispostion Home / Self-Care Prescriptions Ondasetron Odt (ZOFRAN ODT) 4 Mg Tab 4 MG SL Q6H for Nausea, #6 TAB Prov: Karan Santiago M.D. 04/03/17 Tramadol (Ultram) 50 Mg Tab 1 TAB PO BID Y for Pain for 30 Days, #6015 TAB Prov: Karan Santiago M.D. 04/03/17 Referrals Adolph Aldridge M.D. (PCP) Forms Call Back Authorization, HOME CARE DOCUMENTATION FORM, IMPORTANT VISIT INFORMATION Patient Instructions Abdominal Pain - [facility], My [facility] Additional Instructions Please return to the emergency department if you have worsening or recurrent symptoms not amenable to at-home treatment. Please call for a follow-up appointment with her primary care physician. Please take your medications as prescribed. If you have other concerns and/or complaints please feel free to also call your primary care physician's office or return the ED for further evaluation, management, and treatment. Problem Qualifiers Primary Impression: Abdominal pain Abdominal location: generalized Qualified Codes: R10.84 - Generalized abdominal pain
[2017-04-03] MEDS ORDERED: ONDANSETRON INJ 2 MG/ML 2 ML VIAL IV STA (12:57)
[2017-04-03] MEDS ORDERED: ACETAMINOPHEN 500 MG TAB PO STA (12:57)
[2017-04-03] MEDS ORDERED: SODIUM CHLORIDE 0.9% 1000ML 1,000 ML IV STA (12:57)
[2017-04-03] MEDS ORDERED: FENTANYL CITRATE INJ 50 MCG/1 ML 2 ML VIAL IV PRN (13:00)
[2017-04-03 13:31] LABS: VEN BLOOD GAS BASE EXCESS -1.4 mEq/L; VENOUS BLOOD GAS PCO2 45 mmHg (38.0-50.0); VENOUS BLOOD GAS PO2 36 mmHg
[2017-04-03 13:32] LABS: BASO % 0.4 %; BASO ABS # 0.02 K/uL (0-0.2); COMPLETE YES; EOS % 6.8 %; HEMATOCRIT 29.2 % (37-47); IG% 0.2 %; LYMPH % 20.4 %; LYMPH ABS # 0.96 K/uL (1.2-3.4); MEAN CELL VOLUME 97.7 fL (80-100); MEAN CORPUSCULAR HEMOGLOBIN 32.1 pg (25-34); MEAN CORPUSCULAR HGB CONC 32.9 g/dl (32-36); MEAN PLATELET VOLUME 9.6 fL (7.4-10.4); MONO % 7.7 %; NEUT % 64.5 %; PLATELET COUNT 168 K/uL (130-400); RED BLOOD COUNT 2.99 M/uL (4.2-5.4); VEN BLD GAS O2 SATURATION < 60.0 %
[2017-04-03 13:51] LABS: URINE APPEARANCE CLOUDY (CLEAR); URINE BILIRUBIN NEG (NEG); URINE COLOR YELLOW; URINE EPITHELIAL CELL AUTO >30 /lpf (0-5); URINE NITRITE NEG (NEG); URINE PH >= 9.0 (4.5-7.5); URINE SPECIFIC GRAVITY 1.013 (1.000-1.030); UROBILINOGEN NEG (NEG); ZZUR CULT IF INDIC CLEAN CATCH YES
[2017-04-03 14:04] LABS: BUN/CREATININE RATIO 5.4 (10-20); CALCIUM 8.3 mg/dl (8.5-10.1)
[2017-04-03 14:14] LABS: MANUAL MICROSCOPIC REQUIRED? NO; REVIEW REQ? YES; SULFASALICYLIC ACID POS (NEG)
[2017-04-03] MEDS ORDERED: CYCLOBENZAPRINE HCL 5 MG TAB PO STA (14:47)
[2017-04-03] MEDS ORDERED: TRAMADOL HCL 50 MG TAB PO STA (14:47)
[2017-04-03] MEDS ORDERED: TRAM-10 PO (16:04)
[2017-04-03] MEDS ORDERED: ONDA4TAB10 SL (16:04)
[2017-04-03 16:39] VITALS: BP 166/108; PULSE 77; O2SAT 100
[2017-04-24] MEDS ORDERED: CMD/25 PO (12:00)
[2017-04-26] MEDS ORDERED: CMD3 PO (16:37)
[2017-04-26] MEDS ORDERED: LISI20TA3 PO (16:37)
[2017-05-15] MEDS ORDERED: VNTHFA/IN INH (12:28)
[2017-05-15] MEDS ORDERED: LISI-725 PO (13:43)
[2017-05-15] MEDS ORDERED: CALC500C3 PO (13:50)
[2017-05-15] MEDS ORDERED: NRV/5 PO (15:17)
[2017-05-15] MEDS ORDERED: CRG125 PO (15:17)
[2017-05-15] MEDS ORDERED: BENZ100C7 PO (15:22)
[2017-05-15] MEDS ORDERED: FLUT0.15 NAE (15:33)
[2017-05-15] MEDS ORDERED: CALC0.5C17 PO (18:14)
[2017-05-15] MEDS ORDERED: MIRT30TA3 PO (19:24)
[2017-05-15] MEDS ORDERED: TRAZ50TA35 PO (19:56)
[2017-05-15] MEDS ORDERED: CALC667C4 PO ×2 (19:56→21:12)
[2017-05-15] MEDS ORDERED: LXP/20 PO (21:08)
[2017-05-15] MEDS ORDERED: FAMO40TA6 PO (23:12)
[2017-05-17] MEDS ORDERED: CRG25 PO (14:53)
[2017-05-21] MEDS ORDERED: APR25 PO (00:24)
[2017-05-21] MEDS ORDERED: ATV1 PO (15:28)
[2017-05-21] MEDS ORDERED: APR50 PO (15:28)
[2017-05-21] MEDS ORDERED: ativan PO (16:06)
== END 2017-04-03 16:41 | disposition home or self-care (01) ==
LOC: C.EDB 11:47 → C.EDC 16:41
DX: R10.84 Generalized abdominal pain (principal); N18.5 Chronic kidney disease, stage 5; Z99.2 Dependence on renal dialysis; K85.90 Acute pancreatitis without necrosis or infection, unspecified; I12.0 Hypertensive chronic kidney disease with stage 5 chronic kidney disease or end stage renal disease; Z98.51 Tubal ligation status; Z94.0 Kidney transplant status; Z83.3 Family history of diabetes mellitus; Z82.49 Family history of ischemic heart disease and other diseases of the circulatory system; F17.210 Nicotine dependence, cigarettes, uncomplicated; Z79.899 Other long term (current) drug therapy

== ENCOUNTER 2017-04-08 10:46 | Emergency (ER) | payer OTHER ==
[~2017-04-08] VITALS: Ht 160 cm; Wt 87.6 kg
[~2017-04-08 10:46] MED LIST changes: +ONDA4TAB10 SL; +TRAM-10 PO
[2017-04-08 10:54] VITALS: TEMP 36.9; Ht 160 cm; Wt 87.6 kg
[2017-04-08] MEDS ORDERED: ONDANSETRON INJ 2 MG/ML 2 ML VIAL IV STA ×2 (10:56→13:01)
--- NOTE | 2017-04-08 11:01 | EMERGENCY ROOM VISIT NOTE ---
History Report prepared by Melibrandall: Sonia De Under the Supervision of: Dr. Dash Villatoro D.O. First contact with patient: 10:52 Chief Complaint: CHEST PAIN Stated Complaint: CHEST PAIN History of Present Illness The patient is a 31 year old female who presents to the Emergency Room with complaints of persistent chest pain that started upon waking at 0500 this morning. She called her doctors office and was referred here to the ED, so she called EMS. The patient was given Nitroglycerin and Aspirin in the field, which provided moderate relief. She denies any recent back pain or pain or swelling in her legs. She has a history of CKD and is on regular dialysis. She notes today she started home dialysis which has been increased to 4 times daily. The patient is currently on her menstrual period, which she notes has been off as she also she had her period 2 weeks ago. She reports she underwent a stress test and heart catheterization this past spring and states "everything was clear ". Source of History: patient Onset: 0500 this morning Position: chest Timing: other (persistent) Modifying Factors (Relieving): other (Nitroglycerin and Aspirin) Review of Systems See HPI for pertinent positives & negatives. A total of 10 systems reviewed and were otherwise negative. Past Medical & Surgical Medical Problems: (1) Abdominal pain (2) Chest pain (3) CKD (chronic kidney disease) stage V requiring chronic dialysis (4) DM2 (diabetes mellitus, type 2) (5) Focal segmental glomerulosclerosis (6) HTN (hypertension) (7) Hyperkalemia (8) Migraine (9) Renal failure (10) Syncope Surgical Problems: (1) H/O knee surgery (2) H/O tubal ligation (3) H/O: (4) Kidney transplant status, living related donor Social History Problems: (1) Kidney transplanted Family History Crohn's disease FATHER Diabetes mellitus MOTHER Hypertension SISTER Social History Smoking Status: Current Every Day Smoker Alcohol Use: none Drug Use: none Marital Status: in relationship Housing Status: lives with family, lives with significant other Occupation Status: employed, other Current/Historical Medications Scheduled Amlodipine Besylate (Amlodipine Besylate), 10 MG PO DAILY Calcium Acetate (Phoslo 667 Mg), 2,668 MG PO WM Calcium Acetate (Phoslo 667 Mg), 1,334 MG PO WITH SNACKS Calcium Carbonate (Tums), 1,500 MG PO HS Carvedilol (Coreg), 6.25 MG PO BID Escitalopram Oxalate (Escitalopram Oxalate), 20 MG PO QAM Famotidine (Pepcid), 40 MG PO QAM Lisinopril (Lisinopril), 40 MG PO DAILY Mirtazapine (Remeron), 30 MG PO HS Ondasetron Odt (Zofran Odt), 4 MG SL Q6H Trazodone Hcl (Trazodone), 50 MG PO HS Scheduled PRN Albuterol Hfa (Ventolin Hfa), 2 PUFFS INH Q4H PRN for SOB/Wheezing Fluticasone Propionate (Nasal) (Flonase Allergy Relief), 2 SPRAYS FRED DAILY PRN for Nasal Congestion Allergies Coded Allergies: Cefaclor (Verified Allergy, Intermediate, Rash, 03/28/17) Reported by PT. Amoxicillin (Verified Adverse Reaction, Mild, VOMITING, 03/28/17) Clavulanic Acid (Verified Adverse Reaction, Mild, VOMITING, 03/28/17) Physical Exam Vital Signs Date Time Temp Pulse Resp B/P (MAP) Pulse Ox O2 Delivery O2 Flow Rate FiO2 04/08/17 13:59 81 18 160/100 100 04/08/17 13:16 76 12 97 04/08/17 13:09 75 17 164/110 99 04/08/17 13:09 164/110 04/08/17 13:01 188/115 04/08/17 12:46 72 15 98 04/08/17 12:16 74 23 171/122 04/08/17 12:15 74 17 171/122 98 04/08/17 11:46 75 19 98 04/08/17 11:16 82 16 98 04/08/17 10:55 92 04/08/17 10:54 36.9 90 20 167/104 99 Room Air 04/08/17 10:50 167/104 Physical Exam GENERAL: Patient is awake alert in no acute distress patient is resting comfortably and showing no signs of anxiety EYES: The conjunctivae are clear. The pupils are round and reactive. EARS, NOSE, MOUTH AND THROAT: The nose is without any evidence of any deformity. Mucous membranes are moist tongue is midline NECK: The neck is nontender and supple. RESPIRATORY: Normal respiratory effort is noted there is no evidence of wheezing rhonchi or rales CARDIOVASCULAR: Regular rate and rhythm noted there no murmurs rubs or gallops normal S1 normal S2 GASTROINTESTINAL: The abdomen is mildly distended but soft. No tenderness, guarding or rigidity noted. MUSCULOSKELETAL/EXTREMITIES: There is no evidence of gross deformity full range of motion is noted in the hips and shoulders SKIN: There is no obvious evidence of any rash. There are no petechiae, pallor or cyanosis noted. NEUROLOGIC: Patient is awake alert and oriented x3 Medical Decision & Procedures ER Provider Diagnostic Interpretation: Radiology results as stated below per my review and radiologist interpretation: CHEST ONE VIEW PORTABLE CLINICAL HISTORY: ABDOMINAL PAIN/GI pain COMPARISON STUDY: 03/20/2017 FINDINGS: Mild stable cardiomegaly. Lungs are clear. Diaphragms are smooth. IMPRESSION: Mild stable cardia megaly. The above report was generated using voice recognition software. It may contain grammatical, syntax or spelling errors. Electronically signed by: Adolph Rizo M.D. 04/08/2017 11:12 AM Laboratory Results 04/08/17 11:35 Red Blood Count 3.01, Mean Corpuscular Volume 97.3, Mean Corpuscular Hemoglobin 31.2, Mean Corpuscular Hemoglobin Concent 32.1, Mean Platelet Volume 9.8, Neutrophils (%) (Auto) 65.5, Lymphocytes (%) (Auto) 20.9, Monocytes (%) (Auto) 3.7, Eosinophils (%) (Auto) 9.3, Basophils (%) (Auto) 0.4, Neutrophils # (Auto) 3.33, Lymphocytes # (Auto) 1.06, Monocytes # (Auto) 0.19, Eosinophils # (Auto) 0.47, Basophils # (Auto) 0.02 04/08/17 11:35 Test 04/08/17 11:35 White Blood Count 5.08 K/uL (4.8-10.8) Red Blood Count 3.01 M/uL (4.2-5.4) Hemoglobin 9.4 g/dL (12.0-16.0) Hematocrit 29.3 % (37-47) Mean Corpuscular Volume 97.3 fL (80-100) Mean Corpuscular Hemoglobin 31.2 pg (25-34) Mean Corpuscular Hemoglobin Concent 32.1 g/dl (32-36) Platelet Count 152 K/uL (130-400) Mean Platelet Volume 9.8 fL (7.4-10.4) Neutrophils (%) (Auto) 65.5 % Lymphocytes (%) (Auto) 20.9 % Monocytes (%) (Auto) 3.7 % Eosinophils (%) (Auto) 9.3 % Basophils (%) (Auto) 0.4 % Neutrophils # (Auto) 3.33 K/uL (1.4-6.5) Lymphocytes # (Auto) 1.06 K/uL (1.2-3.4) Monocytes # (Auto) 0.19 K/uL (0.11-0.59) Eosinophils # (Auto) 0.47 K/uL (0-0.5) Basophils # (Auto) 0.02 K/uL (0-0.2) RDW Standard Deviation 55.7 fL (36.4-46.3) RDW Coefficient of Variation 15.6 % (11.5-14.5) Immature Granulocyte % (Auto) 0.2 % Immature Granulocyte # (Auto) 0.01 K/uL (0.00-0.02) Prothrombin Time 10.4 SECONDS (9.0-12.0) Prothromb Time International Ratio 1.0 (0.9-1.1) Activated Partial Thromboplast Time 24.9 SECONDS (21.0-31.0) Partial Thromboplastin Ratio 1.0 Anion Gap 11.0 mmol/L (3-11) Est Creatinine Clear Calc Drug Dose 5.7 ml/min Estimated GFR () 3.3 Estimated GFR (Non- 2.8 BUN/Creatinine Ratio 4.5 (10-20) Calcium Level 7.7 mg/dl (8.5-10.1) Total Bilirubin 0.3 mg/dl (0.2-1) Direct Bilirubin 0.1 mg/dl (0-0.2) Aspartate Amino Transf (AST/SGOT) 12 U/L (15-37) Alanine Aminotransferase (ALT/SGPT) 21 U/L (12-78) Alkaline Phosphatase 81 U/L (45-117) Troponin I 0.030 ng/ml (0-0.045) Total Protein 7.1 gm/dl (6.4-8.2) Albumin 3.2 gm/dl (3.4-5.0) Lipase 222 U/L (73-393) Human Chorionic Gonadotropin, Qual NEG (NEG) Laboratory results per my review. Medications Administered Medications (Trade) Dose Ordered Sig/Sachin Route Start Time Stop Time Status Last Admin Dose Admin Ondansetron HCl (Zofran Inj) 4 mg NOW STAT IV 04/08/17 10:56 04/08/17 10:57 DC 04/08/17 11:08 4 MG Hydromorphone HCl (Dilaudid Inj) 1 mg NOW STAT IV 04/08/17 13:01 04/08/17 13:02 DC 04/08/17 13:10 1 MG Ondansetron HCl (Zofran Inj) 4 mg NOW STAT IV 04/08/17 13:01 04/08/17 13:02 DC 04/08/17 13:09 4 MG ECG Indication: chest pain Rate (beats per minute): 90 Rhythm: normal sinus Findings: no ectopy, other (No acute ST segment abnormalities) Change: no significant change (No change when compared to March 22, 2017) ED Course 1055: The patient was evaluated in room C9. A complete history and physical examination were performed. 1056: Zofran 4 mg IV. 1301: Zofran 4 mg IV, Dilaudid 1 mg IV. 1330: I reevaluated the patient. She is feeling well and resting comfortably. I discussed her results and discharge instructions and she verbalized complete understanding and agreement. Medical Decision Prior records/ancillary studies reviewed. Triage Nursing notes reviewed. The patient's history was concerning for chest pain. Differential diagnosis: Etiologies such as cardiac ischemia, aortic dissection, pulmonary embolism, pneumonia, pneumothorax, musculoskeletal, infections, pericarditis, myocarditis , esophageal rupture, gastrointestinal, as well as others were entertained. The patient is a 31-year-old female who presented to emergency department for an evaluation of chest pain. The patient did not have any acute changes on his EKG. Her cardiac biomarkers are negative. I discussed the patient's laboratory and radiographic studies with her. I also discussed the limitations of the emergency department workup for chest pain with her. She was encouraged to rest and avoid any strenuous activity. 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 She was also encouraged return to the emergency apartment immediately if symptoms change worsen or the need arises. Medication Reconcilliation Current Medication List: was personally reviewed by me Blood Pressure Screening Patient's blood pressure: Elevated blood pressure Blood pressure disposition: Referred to PCP Impression Primary Impression: Chest pain Additional Impressions: Renal failure Hypertension Scribe Attestation The scribe's documentation has been prepared under my direction and personally reviewed by me in its entirety. I confirm that the note above accurately reflects all work, treatment, procedures, and medical decision making performed by me. Departure Information Dispostion Home / Self-Care Referrals No Doctor, Assigned (PCP) Patient Instructions ED Chest Pain Atypical [facility], My [facility] Additional Instructions Continue all medications as prescribed. Rest and avoid any strenuous activity. Follow-up with your candle extrusion machine operator as soon as possible. Return to the emergency department immediately if symptoms change worsen or the need arises. Problem Qualifiers Primary Impression: Chest pain Chest pain type: unspecified Qualified Codes: R07.9 - Chest pain, unspecified Additional Impressions: Renal failure Renal failure chronicity: chronic Chronic kidney disease stage: on chronic dialysis Qualified Codes: N18.6 - End stage renal disease; Z99.2 - Dependence on renal dialysis Hypertension Hypertension type: unspecified Qualified Codes: I10 - Essential (primary) hypertension
--- NOTE | 2017-04-08 11:13 | DIAGNOSTIC IMAGING REPORT ---
CHEST ONE VIEW PORTABLE CLINICAL HISTORY: ABDOMINAL PAIN/GI pain COMPARISON STUDY: 03/20/2017 FINDINGS: Mild stable cardiomegaly. Lungs are clear. Diaphragms are smooth. IMPRESSION: Mild stable cardia megaly. The above report was generated using voice recognition software. It may contain grammatical, syntax or spelling errors. Electronically signed by: Adolph Rizo M.D. 04/08/2017 11:12 AM Dictated Date/Time: 04/08/2017 11:12 AM
[2017-04-08 12:06] LABS: BASO % 0.4 %; BASO ABS # 0.02 K/uL (0-0.2); COMPLETE YES; EOS % 9.3 %; HEMATOCRIT 29.3 % (37-47); IG% 0.2 %; LYMPH % 20.9 %; LYMPH ABS # 1.06 K/uL (1.2-3.4); MEAN CELL VOLUME 97.3 fL (80-100); MEAN CORPUSCULAR HEMOGLOBIN 31.2 pg (25-34); MEAN CORPUSCULAR HGB CONC 32.1 g/dl (32-36); MEAN PLATELET VOLUME 9.8 fL (7.4-10.4); MONO % 3.7 %; NEUT % 65.5 %; PLATELET COUNT 152 K/uL (130-400); RED BLOOD COUNT 3.01 M/uL (4.2-5.4); WHITE BLOOD COUNT 5.08 K/uL (4.8-10.8)
[2017-04-08 12:16] LABS: PROTHROMBIN TIME (PATIENT) 10.4 SECONDS (9.0-12.0)
[2017-04-08 12:28] LABS: PREG INTERNAL NEGATIVE QC NEG CLEAR BACKGROUND; PREG INTERNAL POSITIVE QC POS CONTROL LINE
[2017-04-08 12:40] LABS: BUN/CREATININE RATIO 4.5 (10-20); CALCIUM 7.7 mg/dl (8.5-10.1); POTASSIUM 4.9 mmol/L (3.5-5.1)
[2017-04-08] MEDS ORDERED: HYDROmorphone INJ 1 MG/ML SYR IV STA (13:01)
[2017-04-08 13:59] VITALS: BP 160/100; PULSE 81; O2SAT 100
[2017-04-24] MEDS ORDERED: CMD/25 PO (12:00)
[2017-04-26] MEDS ORDERED: CMD3 PO (16:37)
[2017-04-26] MEDS ORDERED: LISI20TA3 PO (16:37)
[2017-05-15] MEDS ORDERED: VNTHFA/IN INH (12:28)
[2017-05-15] MEDS ORDERED: LISI-725 PO (13:43)
[2017-05-15] MEDS ORDERED: CALC500C3 PO (13:50)
[2017-05-15] MEDS ORDERED: CRG125 PO (15:17)
[2017-05-15] MEDS ORDERED: NRV/5 PO (15:17)
[2017-05-15] MEDS ORDERED: BENZ100C7 PO (15:22)
[2017-05-15] MEDS ORDERED: FLUT0.15 NAE (15:33)
[2017-05-15] MEDS ORDERED: CALC0.5C17 PO (18:14)
[2017-05-15] MEDS ORDERED: MIRT30TA3 PO (19:24)
[2017-05-15] MEDS ORDERED: CALC667C4 PO ×2 (19:56→21:12)
[2017-05-15] MEDS ORDERED: TRAZ50TA35 PO (19:56)
[2017-05-15] MEDS ORDERED: LXP/20 PO (21:08)
[2017-05-15] MEDS ORDERED: FAMO40TA6 PO (23:12)
[2017-05-17] MEDS ORDERED: CRG25 PO (14:53)
[2017-05-21] MEDS ORDERED: APR25 PO (00:24)
[2017-05-21] MEDS ORDERED: ATV1 PO (15:28)
[2017-05-21] MEDS ORDERED: APR50 PO (15:28)
[2017-05-21] MEDS ORDERED: ativan PO (16:06)
== END 2017-04-08 14:03 | disposition home or self-care (01) ==
LOC: EDBD 10:46 → C.EDC 10:47
DX: R07.9 Chest pain, unspecified (principal); N18.6 End stage renal disease; E11.9 Type 2 diabetes mellitus without complications; I12.0 Hypertensive chronic kidney disease with stage 5 chronic kidney disease or end stage renal disease; Z79.899 Other long term (current) drug therapy; Z99.2 Dependence on renal dialysis; Z87.898 Personal history of other specified conditions; Z82.49 Family history of ischemic heart disease and other diseases of the circulatory system; Z83.3 Family history of diabetes mellitus; Z83.79 Family history of other diseases of the digestive system; F17.200 Nicotine dependence, unspecified, uncomplicated

== ENCOUNTER 2017-04-13 16:36 | Emergency (ER) | payer OTHER ==
[~2017-04-13] VITALS: Ht 167.6 cm; Wt 87.5 kg
[~2017-04-13 16:36] MED LIST changes: -TRAM-10 PO
[2017-04-13 16:41] VITALS: TEMP 36.7; Ht 167.6 cm; Wt 87.5 kg
--- NOTE | 2017-04-13 17:07 | EMERGENCY ROOM VISIT NOTE ---
History Report prepared by Katia: Laura Luz Under the Supervision of: Dr. Tremaine Allred M.D. First contact with patient: 16:47 Chief Complaint: FLANK PAIN Stated Complaint: SHARP PAINS R SIDE AND SHOULDER GOING DOWN ARM History of Present Illness The patient is a 31 year old female who presents to the Emergency Room with complaints of constant right abdominal pain. She also states she has shoulder pain and shooting pain down her arms. The patient was in the ED five days ago for the same symptoms. She notes that when she was on dialysis this afternoon when her stomach started to hurt. She also states that her pain worsens when she takes a deep breath. She denies having any episodes of passing out. The patient has no history of blood clots but her brother had blood clot in his lungs. The patient had a history of cholecystis and had her gall bladder removed. Source of History: patient Position: abdomen (RUQ) Timing: constant Modifying Factors (Worsening): breathing Note: Pt notes shoulder pain and shooting pain down her arms. Pt. denies passing out. Review of Systems See HPI for pertinent positives & negatives. A total of 10 systems reviewed and were otherwise negative. Past Medical & Surgical Medical Problems: (1) Abdominal pain (2) Chest pain (3) CKD (chronic kidney disease) stage V requiring chronic dialysis (4) DM2 (diabetes mellitus, type 2) (5) Focal segmental glomerulosclerosis (6) HTN (hypertension) (7) Hyperkalemia (8) Migraine (9) Renal failure (10) Syncope Surgical Problems: (1) H/O knee surgery (2) H/O tubal ligation (3) H/O: (4) Kidney transplant status, living related donor Social History Problems: (1) Kidney transplanted Family History Crohn's disease FATHER Diabetes mellitus MOTHER Hypertension SISTER Social History Smoking Status: Current Every Day Smoker Alcohol Use: none Drug Use: none Marital Status: in relationship Housing Status: lives with family, lives with significant other Occupation Status: employed, other Current/Historical Medications Scheduled Amlodipine Besylate (Amlodipine Besylate), 10 MG PO DAILY Calcitriol (Calcitriol), 2 CAP PO QAM Calcium Acetate (Phoslo 667 Mg), 2,668 MG PO WM Calcium Acetate (Phoslo 667 Mg), 1,334 MG PO WITH SNACKS Calcium Carbonate (Tums), 1,500 MG PO HS Carvedilol (Coreg), 6.25 MG PO BID Escitalopram Oxalate (Escitalopram Oxalate), 20 MG PO QAM Famotidine (Pepcid), 40 MG PO QAM Lisinopril (Lisinopril), 40 MG PO DAILY Mirtazapine (Remeron), 30 MG PO HS Ondasetron Odt (Zofran Odt), 4 MG SL Q6H Trazodone Hcl (Trazodone), 50 MG PO HS Scheduled PRN Albuterol Hfa (Ventolin Hfa), 2 PUFFS INH Q4H PRN for SOB/Wheezing Fluticasone Propionate (Nasal) (Flonase Allergy Relief), 2 SPRAYS FRED DAILY PRN for Nasal Congestion Allergies Coded Allergies: Cefaclor (Verified Allergy, Intermediate, Rash, 03/28/17) Reported by PT. Amoxicillin (Verified Adverse Reaction, Mild, VOMITING, 03/28/17) Clavulanic Acid (Verified Adverse Reaction, Mild, VOMITING, 03/28/17) Physical Exam Vital Signs Date Time Temp Pulse Resp B/P (MAP) Pulse Ox O2 Delivery O2 Flow Rate FiO2 04/13/17 19:33 72 16 124/72 98 04/13/17 18:40 82 16 110/70 99 Room Air 04/13/17 16:41 36.7 84 16 131/82 99 Room Air Physical Exam GENERAL: Patient is well appearing and in minimal distress. HEENT: No acute trauma, normocephalic atraumatic, mucous membranes moist, no nasal congestion, no scleral icterus. NECK: No stridor, no adenopathy, no meningismus, trachea is midline. LUNGS: No dyspnea. Clear to auscultation and equal bilaterally. No wheeze, no rhonchi. HEART: Regular rate and rhythm. No murmurs, rubs, gallops appreciated. ABDOMEN: Soft, bowel sounds positive, no masses appreciated, no peritonitis. Vague right upper quadrant/ flank tenderness to palpation. Dialysis port in left abdomen. BACK: No midline tenderness, no CVA tenderness EXTREMITIES: Normal motion all extremities, no cyanosis, no edema. NEUROLOGIC: Alert and oriented, no acute motor or sensory deficits, no focal weakness, cranial nerves grossly intact. SKIN: No rash, no jaundice, no diaphoresis. Medical Decision & Procedures ER Provider Diagnostic Interpretation: Radiology results and stated below per my review and radiologist interpretation: CHEST ONE VIEW PORTABLE FINDINGS: Lung volumes are normal. No consolidation is identified. There is no evidence of pulmonary edema. Cardiomediastinal silhouette is stable. The appearance of the chest is unchanged. IMPRESSION: No acute cardiopulmonary findings. Electronically signed by: Sebastian Mcclain M.D. Laboratory Results 04/13/17 17:18 Red Blood Count 3.07, Mean Corpuscular Volume 97.1, Mean Corpuscular Hemoglobin 32.6, Mean Corpuscular Hemoglobin Concent 33.6, Mean Platelet Volume 9.6, Neutrophils (%) (Auto) 64.1, Lymphocytes (%) (Auto) 19.1, Monocytes (%) (Auto) 8.3, Eosinophils (%) (Auto) 7.9, Basophils (%) (Auto) 0.4, Neutrophils # (Auto) 3.32, Lymphocytes # (Auto) 0.99, Monocytes # (Auto) 0.43, Eosinophils # (Auto) 0.41, Basophils # (Auto) 0.02 04/13/17 17:18 Test 04/13/17 17:18 White Blood Count 5.18 K/uL (4.8-10.8) Red Blood Count 3.07 M/uL (4.2-5.4) Hemoglobin 10.0 g/dL (12.0-16.0) Hematocrit 29.8 % (37-47) Mean Corpuscular Volume 97.1 fL (80-100) Mean Corpuscular Hemoglobin 32.6 pg (25-34) Mean Corpuscular Hemoglobin Concent 33.6 g/dl (32-36) Platelet Count 160 K/uL (130-400) Mean Platelet Volume 9.6 fL (7.4-10.4) Neutrophils (%) (Auto) 64.1 % Lymphocytes (%) (Auto) 19.1 % Monocytes (%) (Auto) 8.3 % Eosinophils (%) (Auto) 7.9 % Basophils (%) (Auto) 0.4 % Neutrophils # (Auto) 3.32 K/uL (1.4-6.5) Lymphocytes # (Auto) 0.99 K/uL (1.2-3.4) Monocytes # (Auto) 0.43 K/uL (0.11-0.59) Eosinophils # (Auto) 0.41 K/uL (0-0.5) Basophils # (Auto) 0.02 K/uL (0-0.2) RDW Standard Deviation 53.9 fL (36.4-46.3) RDW Coefficient of Variation 15.4 % (11.5-14.5) Immature Granulocyte % (Auto) 0.2 % Immature Granulocyte # (Auto) 0.01 K/uL (0.00-0.02) D-Dimer 590 ug/L FEU (0-500) Anion Gap 11.0 mmol/L (3-11) Est Creatinine Clear Calc Drug Dose 6.5 ml/min Estimated GFR () 3.6 Estimated GFR (Non- 3.1 BUN/Creatinine Ratio 4.7 (10-20) Calcium Level 7.8 mg/dl (8.5-10.1) Total Bilirubin 0.4 mg/dl (0.2-1) Direct Bilirubin < 0.1 mg/dl (0-0.2) Aspartate Amino Transf (AST/SGOT) 18 U/L (15-37) Alanine Aminotransferase (ALT/SGPT) 24 U/L (12-78) Alkaline Phosphatase 91 U/L (45-117) Troponin I 0.046 ng/ml (0-0.045) Total Protein 7.7 gm/dl (6.4-8.2) Albumin 3.4 gm/dl (3.4-5.0) Lipase 304 U/L (73-393) Laboratory results as reviewed by me. ED Course 165: The patient was evaluated in room A10. A complete history and physical exam was performed. 1800: I rechecked on the patient she is not distressed and is playing on her phone. 1822 Discussed the patients case with Dr. Tony Sierra Neph[facility]. She suggests heavily against using IV contrast with this patient. 1833: I reevaluated the patient and she says she would like to be evaluated by the [facility] Doctors. 1835: I discussed the patient's case with Dr. Wiggins [facility]. He will further evaluate the patient. 1900: Reevaluated the patient. Discussed results and discharge instructions: She verbalized understanding and agreement. The patient is ready for discharge. Medical Decision Differential: Renal Colic, Pyelonephritis, Hydronephrosis, Appendicitis, Diverticulitis, Retroperitoneal Bleed/Infection, Aortic Pathology, MSK, Neurologic Pathology, amongst other pathologies entertained. 31 yr old female arrives for reported right flank/chest pain which she notes is worse with pretty much everything including with deep breath. States both father and brother with PEs in past thus I felt compelled to get Dimer. Other labs, cxr, ekg, exam benign. Her Dimer is mildly elevated though note that this is less than her baseline by significant amount. Already has had v/q scan which was normal for this similar symptoms 3 months ago. Discussed with Nephro who requested no IV dye given high risk of complete renal failure. Reviewed with hospitalist at patietn request who agree with US legs. US leg ordered and patient aware. When about ot go to US patient requested discharge without testing. She is stable, capable of making decisions and aware concerns for clots. Given minimal symptoms, heavily work-up previously, normal vitals, and patient clearly in no distress while playing on phone, discharge reasonable. Patient aware she must follow up with PCP. May return at any time. Aware risks of blood clots and still wishes to go home. Medication Reconcilliation Current Medication List: was personally reviewed by me Blood Pressure Screening Patient's blood pressure: Normal blood pressure Blood pressure disposition: Did not require urgent referral Consults Time Called: 1819 Consulting Physician: Dr. Tony Sierra Neph[facility] Returned Call: [phone] Discussed the patient's case. She advises against using IV contrast on this pt. Additional Consults: Time Called: 1829 Consulted Physician: Dr. Rosalie RANDHAWA Returned Call: [phone] Additional Comments: Discussed the patient's case. The patient will be evaluated for further treatment and disposition. Impression Primary Impression: Right flank pain Scribe Attestation The scribe's documentation has been prepared under my direction and personally reviewed by me in its entirety. I confirm that the note above accurately reflects all work, treatment, procedures, and medical decision making performed by me. Departure Information Dispostion Home / Self-Care Referrals Adolph Aldridge M.D. (PCP) Forms HOME CARE DOCUMENTATION FORM, IMPORTANT VISIT INFORMATION Patient Instructions ED Flank Pain Uncertain Cause, My [facility] Additional Instructions It is very important you follow up with your primary care provider for further evaluation and discussion.
[2017-04-13 17:30] LABS: BASO % 0.4 %; BASO ABS # 0.02 K/uL (0-0.2); COMPLETE YES; EOS % 7.9 %; HEMATOCRIT 29.8 % (37-47); IG% 0.2 %; LYMPH % 19.1 %; LYMPH ABS # 0.99 K/uL (1.2-3.4); MEAN CELL VOLUME 97.1 fL (80-100); MEAN CORPUSCULAR HEMOGLOBIN 32.6 pg (25-34); MEAN CORPUSCULAR HGB CONC 33.6 g/dl (32-36); MEAN PLATELET VOLUME 9.6 fL (7.4-10.4); MONO % 8.3 %; NEUT % 64.1 %; PLATELET COUNT 160 K/uL (130-400); RED BLOOD COUNT 3.07 M/uL (4.2-5.4); WHITE BLOOD COUNT 5.18 K/uL (4.8-10.8)
--- NOTE | 2017-04-13 17:55 | DIAGNOSTIC IMAGING REPORT ---
CHEST ONE VIEW PORTABLE CLINICAL HISTORY: Right-sided chest pain. COMPARISON STUDY: Chest radiograph April 08, 2017. FINDINGS: Lung volumes are normal. No consolidation is identified. There is no evidence of pulmonary edema. Cardiomediastinal silhouette is stable. The appearance of the chest is unchanged. IMPRESSION: No acute cardiopulmonary findings. Electronically signed by: Sebastian Mcclain M.D. 04/13/2017 5:54 PM Dictated Date/Time: 04/13/2017 5:53 PM
[2017-04-13 17:58] LABS: ALKALINE PHOSPHATASE 91 U/L (45-117); ALT/SGPT 24 U/L (12-78); AST/SGOT 18 U/L (15-37); BLOOD UREA NITROGEN 66 mg/dl (7-18); BUN/CREATININE RATIO 4.7 (10-20); CALCIUM 7.8 mg/dl (8.5-10.1); CARBON DIOXIDE 22 mmol/L (21-32); CHLORIDE 102 mmol/L (98-107); GLUCOSE 91 mg/dl (70-99); POTASSIUM 4.7 mmol/L (3.5-5.1); SODIUM 135 mmol/L (136-145)
[2017-04-13 19:33] VITALS: BP 124/72; PULSE 72; O2SAT 98
[2017-04-24] MEDS ORDERED: CMD/25 PO (12:00)
[2017-04-26] MEDS ORDERED: LISI20TA3 PO (16:37)
[2017-04-26] MEDS ORDERED: CMD3 PO (16:37)
[2017-05-15] MEDS ORDERED: VNTHFA/IN INH (12:28)
[2017-05-15] MEDS ORDERED: LISI-725 PO (13:43)
[2017-05-15] MEDS ORDERED: CALC500C3 PO (13:50)
[2017-05-15] MEDS ORDERED: CRG125 PO (15:17)
[2017-05-15] MEDS ORDERED: NRV/5 PO (15:17)
[2017-05-15] MEDS ORDERED: BENZ100C7 PO (15:22)
[2017-05-15] MEDS ORDERED: FLUT0.15 NAE (15:33)
[2017-05-15] MEDS ORDERED: CALC0.5C17 PO (18:14)
[2017-05-15] MEDS ORDERED: MIRT30TA3 PO (19:24)
[2017-05-15] MEDS ORDERED: TRAZ50TA35 PO (19:56)
[2017-05-15] MEDS ORDERED: CALC667C4 PO ×2 (19:56→21:12)
[2017-05-15] MEDS ORDERED: LXP/20 PO (21:08)
[2017-05-15] MEDS ORDERED: FAMO40TA6 PO (23:12)
[2017-05-17] MEDS ORDERED: CRG25 PO (14:53)
[2017-05-21] MEDS ORDERED: APR25 PO (00:24)
[2017-05-21] MEDS ORDERED: APR50 PO (15:28)
[2017-05-21] MEDS ORDERED: ATV1 PO (15:28)
[2017-05-21] MEDS ORDERED: ativan PO (16:06)
== END 2017-04-13 19:34 | disposition home or self-care (01) ==
LOC: C.EDB 16:38 → C.EDA 19:34
DX: R10.30 Lower abdominal pain, unspecified (principal); I12.0 Hypertensive chronic kidney disease with stage 5 chronic kidney disease or end stage renal disease; N18.5 Chronic kidney disease, stage 5; F17.200 Nicotine dependence, unspecified, uncomplicated; Z99.2 Dependence on renal dialysis; Z98.51 Tubal ligation status; Z98.890 Other specified postprocedural states; Z79.899 Other long term (current) drug therapy; Z88.1 Allergy status to other antibiotic agents; Z88.8 Allergy status to other drugs, medicaments and biological substances; Z83.3 Family history of diabetes mellitus; Z82.49 Family history of ischemic heart disease and other diseases of the circulatory system

== ENCOUNTER 2017-04-15 11:10 | Emergency (ER) | payer OTHER ==
[~2017-04-15] VITALS: Ht 167.6 cm; Wt 86.1 kg
[2017-04-15 11:18] VITALS: TEMP 36.8; Ht 167.6 cm; Wt 86.1 kg
[2017-04-15 12:50] LABS: URINE APPEARANCE CLOUDY (CLEAR); URINE BILIRUBIN NEG (NEG); URINE COLOR YELLOW; URINE EPITHELIAL CELL AUTO >30 /lpf (0-5); URINE NITRITE NEG (NEG); URINE SPECIFIC GRAVITY 1.013 (1.000-1.030); UROBILINOGEN NEG (NEG); ZZUR CULT IF INDIC CLEAN CATCH YES
[2017-04-15] MEDS ORDERED: SODIUM CHLORIDE 0.9% 1000ML 1,000 ML IV STA (12:51)
[2017-04-15 13:07] LABS: SULFASALICYLIC ACID POS (NEG)
[2017-04-15 13:08] LABS: MANUAL MICROSCOPIC REQUIRED? NO; REVIEW REQ? YES
[2017-04-15 13:29] LABS: BASO % 0.2 %; BASO ABS # 0.01 K/uL (0-0.2); COMPLETE YES; EOS % 6.1 %; HEMATOCRIT 32.1 % (37-47); IG% 0.2 %; LYMPH % 20.4 %; MEAN CELL VOLUME 97.6 fL (80-100); MEAN CORPUSCULAR HEMOGLOBIN 31.6 pg (25-34); MEAN CORPUSCULAR HGB CONC 32.4 g/dl (32-36); MEAN PLATELET VOLUME 9.1 fL (7.4-10.4); MONO % 5.9 %; NEUT % 67.2 %; PLATELET COUNT 139 K/uL (130-400); RED BLOOD COUNT 3.29 M/uL (4.2-5.4)
[2017-04-15 13:56] LABS: ALB/GLOB RATIO 0.8 (0.9-2); BUN/CREATININE RATIO 4.5 (10-20); CALCIUM 8.1 mg/dl (8.5-10.1); POTASSIUM 4.5 mmol/L (3.5-5.1)
[2017-04-15] MEDS ORDERED: ACETAMINOPHEN 500 MG TAB PO STA (14:23)
--- NOTE | 2017-04-15 14:23 | EMERGENCY ROOM VISIT NOTE ---
History Report prepared by Melibe: Laura Luz Under the Supervision of: Dr. Baljit Lewis D.O. First contact with patient: 12:43 Chief Complaint: DIZZY Stated Complaint: FEELING LIKE GOING TO PASS OUT, PAIN IN CHEST/ARMS Nursing Triage Summary: triage note: pt reports dizziness since last night at 2200. pt reports she does home peritoneal dialysis. pt reports "i am still having that pain below my ribs, i was here the other day for it." History of Present Illness The patient is a 31 year old female who presents to the Emergency Room with complaints of an episode of feeling light headed last night. She notes that she was also dizzy and she felt like she was going to pass out. She was in the ED two days ago and had a Chest X-Ray which was normal. The patient has FSGS ( renal disease) and is on dialysis for it. She notes she has had a kidney transplant. The patient states that she doesn't drink much fluids but she denies any urinary symptoms. Source of History: patient Onset: last night Timing: other (episode) Associated Symptoms: + abdominal pain, No urinary symptoms Review of Systems As above otherwise negative for 10 systems Past Medical & Surgical Medical Problems: (1) Abdominal pain (2) Chest pain (3) CKD (chronic kidney disease) stage V requiring chronic dialysis (4) DM2 (diabetes mellitus, type 2) (5) Focal segmental glomerulosclerosis (6) FSGS (focal segmental glomerulosclerosis) (7) HTN (hypertension) (8) Hyperkalemia (9) Migraine (10) Renal failure (11) Syncope Surgical Problems: (1) H/O knee surgery (2) H/O tubal ligation (3) H/O: (4) Kidney transplant status, living related donor Social History Problems: (1) Kidney transplanted Family History Crohn's disease FATHER Diabetes mellitus MOTHER Hypertension SISTER Social History Smoking Status: Current Every Day Smoker Alcohol Use: none Drug Use: none Marital Status: in relationship Housing Status: lives with family, lives with significant other Occupation Status: employed, other Current/Historical Medications Scheduled Amlodipine Besylate (Amlodipine Besylate), 10 MG PO DAILY Calcitriol (Calcitriol), 2 CAP PO QAM Calcium Acetate (Phoslo 667 Mg), 2,668 MG PO WM Calcium Acetate (Phoslo 667 Mg), 1,334 MG PO WITH SNACKS Calcium Carbonate (Tums), 1,500 MG PO HS Carvedilol (Coreg), 6.25 MG PO BID Escitalopram Oxalate (Escitalopram Oxalate), 20 MG PO QAM Famotidine (Pepcid), 40 MG PO QAM Lisinopril (Lisinopril), 40 MG PO DAILY Mirtazapine (Remeron), 30 MG PO HS Ondasetron Odt (Zofran Odt), 4 MG SL Q6H Trazodone Hcl (Trazodone), 50 MG PO HS Scheduled PRN Albuterol Hfa (Ventolin Hfa), 2 PUFFS INH Q4H PRN for SOB/Wheezing Fluticasone Propionate (Nasal) (Flonase Allergy Relief), 2 SPRAYS FRED DAILY PRN for Nasal Congestion Allergies Coded Allergies: Cefaclor (Verified Allergy, Intermediate, Rash, 04/15/17) Reported by PT. Amoxicillin (Verified Adverse Reaction, Mild, VOMITING, 04/15/17) Clavulanic Acid (Verified Adverse Reaction, Mild, VOMITING, 04/15/17) Physical Exam Vital Signs Date Time Temp Pulse Resp B/P (MAP) Pulse Ox O2 Delivery O2 Flow Rate FiO2 04/15/17 14:41 76 14 126/79 99 Room Air 04/15/17 13:08 69 18 120/72 99 Room Air 04/15/17 12:12 71 04/15/17 11:18 36.8 84 18 122/74 98 Room Air Physical Exam CONSTITUTIONAL/VITAL SIGNS: Reviewed / noted above. GENERAL: Non-toxic in appearance. INTEGUMENTARY: Warm, dry, and [place]. HEAD: Normocephalic. EYES: without scleral icterus or trauma. ENT/OROPHARYNX: clear and moist. LYMPHADENOPATHY/NECK: Is supple without lymphadenopathy or meningismus. RESPIRATORY: Lungs clear and equal. CARDIOVASCULAR: Regular rate and rhythm. GI/ABDOMEN: Soft and nontender. No organomegaly or pulsatile mass. No rebound or guarding. Normal bowel sounds. EXTREMITIES: Warm and well perfused. BACK: No CVA tenderness. NEUROLOGICAL: Intact without focal deficits. PSYCHIATRIC: normal affect. MUSCULOSKELETAL: Normally developed with good muscle tone. Medical Decision & Procedures Laboratory Results 04/15/17 13:08 Red Blood Count 3.29, Mean Corpuscular Volume 97.6, Mean Corpuscular Hemoglobin 31.6, Mean Corpuscular Hemoglobin Concent 32.4, Mean Platelet Volume 9.1, Neutrophils (%) (Auto) 67.2, Lymphocytes (%) (Auto) 20.4, Monocytes (%) (Auto) 5.9, Eosinophils (%) (Auto) 6.1, Basophils (%) (Auto) 0.2, Neutrophils # (Auto) 3.63, Lymphocytes # (Auto) 1.10, Monocytes # (Auto) 0.32, Eosinophils # (Auto) 0.33, Basophils # (Auto) 0.01 04/15/17 13:08 Test 04/15/17 11:30 04/15/17 13:08 Urine Color YELLOW Urine Appearance CLOUDY (CLEAR) Urine pH 8.0 (4.5-7.5) Urine Specific [place] 1.013 (1.000-1.030) Urine Protein 1+ (NEG) Urine Glucose (UA) 1+ (NEG) Urine Ketones NEG (NEG) Urine Occult Blood 1+ (NEG) Urine Nitrite NEG (NEG) Urine Bilirubin NEG (NEG) Urine Urobilinogen NEG (NEG) Urine Leukocyte Esterase NEG (NEG) Urine WBC (Auto) 10-30 /hpf (0-5) Urine RBC (Auto) 0-4 /hpf (0-4) Urine Hyaline Casts (Auto) 1-5 /lpf (0-5) Urine Epithelial Cells (Auto) >30 /lpf (0-5) Urine Bacteria (Auto) 2+ (NEG) Urine Pathogenic Casts /lpf (0) Urine Test NEG (NEG) White Blood Count 5.40 K/uL (4.8-10.8) Red Blood Count 3.29 M/uL (4.2-5.4) Hemoglobin 10.4 g/dL (12.0-16.0) Hematocrit 32.1 % (37-47) Mean Corpuscular Volume 97.6 fL (80-100) Mean Corpuscular Hemoglobin 31.6 pg (25-34) Mean Corpuscular Hemoglobin Concent 32.4 g/dl (32-36) Platelet Count 139 K/uL (130-400) Mean Platelet Volume 9.1 fL (7.4-10.4) Neutrophils (%) (Auto) 67.2 % Lymphocytes (%) (Auto) 20.4 % Monocytes (%) (Auto) 5.9 % Eosinophils (%) (Auto) 6.1 % Basophils (%) (Auto) 0.2 % Neutrophils # (Auto) 3.63 K/uL (1.4-6.5) Lymphocytes # (Auto) 1.10 K/uL (1.2-3.4) Monocytes # (Auto) 0.32 K/uL (0.11-0.59) Eosinophils # (Auto) 0.33 K/uL (0-0.5) Basophils # (Auto) 0.01 K/uL (0-0.2) RDW Standard Deviation 55.2 fL (36.4-46.3) RDW Coefficient of Variation 15.5 % (11.5-14.5) Immature Granulocyte % (Auto) 0.2 % Immature Granulocyte # (Auto) 0.01 K/uL (0.00-0.02) Anion Gap 13.0 mmol/L (3-11) Est Creatinine Clear Calc Drug Dose 6.0 ml/min Estimated GFR () 3.3 Estimated GFR (Non- 2.8 BUN/Creatinine Ratio 4.5 (10-20) Calcium Level 8.1 mg/dl (8.5-10.1) Total Bilirubin 0.5 mg/dl (0.2-1) Aspartate Amino Transf (AST/SGOT) 13 U/L (15-37) Alanine Aminotransferase (ALT/SGPT) 25 U/L (12-78) Alkaline Phosphatase 96 U/L (45-117) Total Protein 7.7 gm/dl (6.4-8.2) Albumin 3.4 gm/dl (3.4-5.0) Globulin 4.3 gm/dl (2.5-4.0) Albumin/Globulin Ratio 0.8 (0.9-2) Laboratory results as stated above per my review. Medications Administered Medications (Trade) Dose Ordered Sig/Sachin Route Start Time Stop Time Status Last Admin Dose Admin Sodium Chloride 1,000 ml @ 999 mls/hr Q1H1M STAT IV 04/15/17 12:51 04/15/17 13:51 DC 04/15/17 13:00 999 MLS/HR Acetaminophen (Tylenol Tab) 500 mg NOW STAT PO 04/15/17 14:23 04/15/17 14:24 DC 04/15/17 14:34 500 MG Differential includes acute coronary syndrome, myocardial infarction, CVA, TIA, anemia, infection, pneumonia, UTI, pyelonephritis, poor nutrition, dehydration, electrolyte disturbance,hypoglycemia. ECG Indication: other (light headed) Rate (beats per minute): 74 Rhythm: normal sinus Findings: no acute ischemic change, no ectopy ED Course 1245: Previous medical records were reviewed. The patient was evaluated in room C4. A complete history and physical examination was performed. 1251: Sodium Chloride 1000 ml @ 999 mls/hr IV. 1430: On reevaluation, the patient is resting. I discussed the results and findings with the patient. She verbalized agreement of the treatment plan. The patient was discharged home. Medical Decision Differential includes acute coronary syndrome, myocardial infarction, CVA, TIA, anemia, infection, pneumonia, UTI, pyelonephritis, poor nutrition, dehydration, electrolyte disturbance,hypoglycemia. This is a 31-year-old female who presents to the ED with a chief complaint of some dizziness. The patient states that last night she felt weak. She complained of feeling somewhat dizzy. She came in for evaluation of this. She denies any other significant symptoms. She denies shortness of breath. She has not had fevers or cough. Patient's physical exam was unremarkable. Her vital signs are normal. She is in no distress. The patient was treated with IV fluids. CBC is unremarkable, BUN is 68 and creatinine is 15. This is due to her chronic renal disease. Urine appears contaminated. test was negative. The patient was told the results of the test. She is felt to be stable for discharge. She was given by mouth Tylenol as well. Medication Reconcilliation Current Medication List: was personally reviewed by me Blood Pressure Screening Patient's blood pressure: Normal blood pressure Blood pressure disposition: Did not require urgent referral Impression Primary Impression: Dizziness Scribe Attestation The scribe's documentation has been prepared under my direction and personally reviewed by me in its entirety. I confirm that the note above accurately reflects all work, treatment, procedures, and medical decision making performed by me. Departure Information Dispostion Home / Self-Care Referrals Adolph Aldridge M.D. (PCP) Forms HOME CARE DOCUMENTATION FORM, IMPORTANT VISIT INFORMATION Patient Instructions My [facility] Additional Instructions Follow-up with your doctor for further care and evaluation in 1-2 days. Return to the emergency department for worsening or new symptoms or any concerns. You have been examined and treated today on an emergency basis only. This is not a substitute for, or an effort to provide, complete comprehensive medical care. It is impossible to recognize and treat all injuries or illnesses in a single emergency department visit. It is therefore important that you follow up closely with your doctor. Call as soon as possible for an appointment.
[2017-04-15 14:41] VITALS: BP 126/79; PULSE 76; O2SAT 99
[2017-04-24] MEDS ORDERED: CMD/25 PO (12:00)
[2017-04-26] MEDS ORDERED: LISI20TA3 PO (16:37)
[2017-04-26] MEDS ORDERED: CMD3 PO (16:37)
[2017-05-15] MEDS ORDERED: VNTHFA/IN INH (12:28)
[2017-05-15] MEDS ORDERED: LISI-725 PO (13:43)
[2017-05-15] MEDS ORDERED: CALC500C3 PO (13:50)
[2017-05-15] MEDS ORDERED: NRV/5 PO (15:17)
[2017-05-15] MEDS ORDERED: CRG125 PO (15:17)
[2017-05-15] MEDS ORDERED: BENZ100C7 PO (15:22)
[2017-05-15] MEDS ORDERED: FLUT0.15 NAE (15:33)
[2017-05-15] MEDS ORDERED: CALC0.5C17 PO (18:14)
[2017-05-15] MEDS ORDERED: MIRT30TA3 PO (19:24)
[2017-05-15] MEDS ORDERED: TRAZ50TA35 PO (19:56)
[2017-05-15] MEDS ORDERED: CALC667C4 PO ×2 (19:56→21:12)
[2017-05-15] MEDS ORDERED: LXP/20 PO (21:08)
[2017-05-15] MEDS ORDERED: FAMO40TA6 PO (23:12)
[2017-05-17] MEDS ORDERED: CRG25 PO (14:53)
[2017-05-21] MEDS ORDERED: APR25 PO (00:24)
[2017-05-21] MEDS ORDERED: ATV1 PO (15:28)
[2017-05-21] MEDS ORDERED: APR50 PO (15:28)
[2017-05-21] MEDS ORDERED: ativan PO (16:06)
== END 2017-04-15 14:44 | disposition home or self-care (01) ==
LOC: C.EDB 11:12 → C.EDC 14:44
DX: R42 Dizziness and giddiness (principal); N18.9 Chronic kidney disease, unspecified; E11.9 Type 2 diabetes mellitus without complications; I10 Essential (primary) hypertension; E87.5 Hyperkalemia; Z83.3 Family history of diabetes mellitus; Z82.49 Family history of ischemic heart disease and other diseases of the circulatory system; F17.200 Nicotine dependence, unspecified, uncomplicated

== ENCOUNTER 2017-04-17 09:56 | Inpatient (IN) | payer OTHER ==
[~2017-04-17] VITALS: Ht 167.6 cm; Wt 83.6 kg
[2017-04-17] MEDS ORDERED: SODIUM CHLORIDE 0.9% 500ML 500 ML IV STA (10:24)
--- NOTE | 2017-04-17 10:54 | DIAGNOSTIC IMAGING REPORT ---
CHEST ONE VIEW PORTABLE HISTORY: cough COMPARISON: Chest 04/13/2017. FINDINGS: The lungs are clear. No pleural effusions. No pneumothorax. The heart remains top normal in size. No evidence for pulmonary edema. No rib fractures. IMPRESSION: No significant change compared to the prior study. No acute process. Electronically signed by: Jose Jenkins M.D. 04/17/2017 10:52 AM Dictated Date/Time: 04/17/2017 10:51 AM
[2017-04-17] MEDS ORDERED: ACETAMINOPHEN 500 MG TAB PO STA (11:15)
[2017-04-17 11:17] LABS: BASO % 0.4 %; BASO ABS # 0.02 K/uL (0-0.2); COMPLETE YES; EOS % 5.3 %; HEMATOCRIT 30.2 % (37-47); IG% 0.4 %; LYMPH % 15.5 %; LYMPH ABS # 0.87 K/uL (1.2-3.4); MEAN CELL VOLUME 96.2 fL (80-100); MEAN CORPUSCULAR HEMOGLOBIN 32.2 pg (25-34); MEAN CORPUSCULAR HGB CONC 33.4 g/dl (32-36); MEAN PLATELET VOLUME 9.7 fL (7.4-10.4); NEUT % 71.4 %; PLATELET COUNT 125 K/uL (130-400); RED BLOOD COUNT 3.14 M/uL (4.2-5.4); WHITE BLOOD COUNT 5.61 K/uL (4.8-10.8)
[2017-04-17 11:51] LABS: BUN/CREATININE RATIO 5.3 (10-20); CALCIUM 8.6 mg/dl (8.5-10.1); POTASSIUM 4.9 mmol/L (3.5-5.1)
--- NOTE | 2017-04-17 13:10 | DIAGNOSTIC IMAGING REPORT ---
VENOUS DOPPLER LWR EXT BILA CLINICAL HISTORY: 31 years-old Female presenting with pleuritic cp cant get ct pe. TECHNIQUE: Real-time grayscale and color and spectral Doppler ultrasound imaging of the veins of the bilateral lower extremities was performed. Compression and augmentation were also utilized. COMPARISON: 01/23/2017. FINDINGS: Right: Common femoral vein: Patent. Femoral vein: Patent. Greater saphenous vein: Patent. Popliteal vein: Patent. Calf veins: Patent. Left: Common femoral vein: Patent. Femoral vein: Patent. Greater saphenous vein: Patent. Popliteal vein: Patent. Calf veins: Patent. Other: None. IMPRESSION: No evidence of deep venous thrombosis. Electronically signed by: Hany Moreno M.D. 04/17/2017 1:09 PM Dictated Date/Time: 04/17/2017 1:08 PM
--- NOTE | 2017-04-17 13:44 | EMERGENCY ROOM VISIT NOTE ---
History Report prepared by Katia: Dana Munson Under the Supervision of: Dr. Berry Alves D.O. First contact with patient: 10:13 Chief Complaint: DIZZY Stated Complaint: DIZZY,PAIN IN RIGHT SIDE OF AB AREA Nursing Triage Summary: triage note; pt reports she is on home dialysis. pt reports since saturday she has had pain right hip to right shoulder and neck. pt reports dizziness since saturday "when i stand up i feel like i am going to pass out." History of Present Illness The patient is a 31 year old female who presents to the Emergency Room with complaints of constant dizziness since she woke up this morning. She has been dizzy and lightheaded for the past three days. She was evaluated in the ED for this two days ago and given fluids, which she states helped to alleviate her symptoms. She was instructed to follow-up with her PCP. The patient has not seen her PCP, but called them this morning with her symptoms and was advised to come to the ED for further evaluation. The patient states that her dizziness is worse when she stands up and her vision starts to go black. She reports a mild headache. The patient has been having pain in her right side from her hip to her shoulder for the past three days as well. She has been taking Tylenol for her pain. She rates her pain as an 8/10 in severity. Movement, deep inspiration , and walking exacerbate her pain. She is nauseated and reports diarrhea for the past month. She denies weakness, numbness, abdominal pain, vomiting, and recent trauma or falls. The patient is on peritoneal dialysis at home. She has a history of a failed kidney transplant. 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 She is scheduled to follow-up with her coating machine helper in two days. Source of History: patient Onset: this morning Position: other (global) Symptom Intensity: 8/10 Quality: other (dizziness) Timing: constant Modifying Factors (Worsening): breathing, movement, other (standing up) Modifying Factors (Relieving): tylenol Associated Symptoms: + headache, + nausea, + diarrhea, No vomiting, No abdominal pain, No weakness, No numbness Note: Pt notes black vision and right sided pain. Review of Systems See HPI for pertinent positives & negatives. A total of 10 systems reviewed and were otherwise negative. Past Medical & Surgical Medical Problems: (1) Anemia (2) CKD (chronic kidney disease) stage V requiring chronic dialysis (3) DM2 (diabetes mellitus, type 2) (4) Focal segmental glomerulosclerosis (5) FSGS (focal segmental glomerulosclerosis) (6) HTN (hypertension) (7) Migraine (8) Renal failure Surgical Problems: (1) H/O knee surgery (2) H/O tubal ligation (3) H/O: (4) Kidney transplant status, living related donor Social History Problems: (1) Kidney transplanted Family History Crohn's disease FATHER Diabetes mellitus MOTHER Hypertension SISTER Social History Smoking Status: Current Every Day Smoker Alcohol Use: none Drug Use: none Marital Status: in relationship Housing Status: lives with family, lives with significant other Occupation Status: employed, other Current/Historical Medications Scheduled Amlodipine Besylate (Amlodipine Besylate), 10 MG PO DAILY Calcitriol (Calcitriol), 2 CAP PO QAM Calcium Acetate (Phoslo 667 Mg), 4 CAP PO WM Calcium Acetate (Phoslo 667 Mg), 2 CAP PO WITH SNACKS Calcium Carbonate (Tums), 1,500 MG PO HS Carvedilol (Coreg), 6.25 MG PO BID Escitalopram Oxalate (Escitalopram Oxalate), 20 MG PO QAM Famotidine (Pepcid), 40 MG PO QAM Lisinopril (Lisinopril), 40 MG PO DAILY Mirtazapine (Remeron), 30 MG PO HS Trazodone Hcl (Trazodone), 50 MG PO HS Scheduled PRN Albuterol Hfa (Ventolin Hfa), 2 PUFFS INH Q4H PRN for SOB/Wheezing Fluticasone Propionate (Nasal) (Flonase Allergy Relief), 2 SPRAYS FRED DAILY PRN for Nasal Congestion Allergies Coded Allergies: Cefaclor (Verified Allergy, Intermediate, Rash, 04/17/17) Reported by PT. Amoxicillin (Verified Adverse Reaction, Mild, VOMITING, 04/17/17) Clavulanic Acid (Verified Adverse Reaction, Mild, VOMITING, 04/17/17) Physical Exam Vital Signs Date Time Temp Pulse Resp B/P (MAP) Pulse Ox O2 Delivery O2 Flow Rate FiO2 04/17/17 14:20 73 18 125/72 98 Room Air 04/17/17 12:02 68 18 131/88 100 Room Air 04/17/17 11:15 67 17 121/77 100 Room Air 04/17/17 09:59 36.9 75 18 123/82 99 Room Air Physical Exam GENERAL: alert, sitting up in bed, disheveled, chronically ill appearing, well nourished, no distress, non-toxic EYE EXAM: normal conjunctiva, PERRL and EOM's intact OROPHARYNX: no exudate, no erythema, lips, buccal mucosa, and tongue normal and mucous membranes are moist NECK: supple, no nuchal rigidity, no adenopathy, non-tender LUNGS: Clear to auscultation. Normal chest wall mechanics HEART: no murmurs, S1 normal and S2 normal ABDOMEN: abdomen soft, non-tender, normo-active bowel sounds, no masses, no rebound or guarding. Peritoneal dialysis catheter in LLQ, no surrounding erythema. BACK: Back is symmetrical on inspection and there is no deformity, no midline tenderness, no CVA tenderness. Acute, reproducible tenderness from right iliac wing tracking up into right axilla around scapula and into trapezius. SKIN: no rashes and no bruising UPPER EXTREMITIES: upper extremities are grossly normal. LOWER EXTREMITIES: No pitting edema. Calves equal bilaterally. NEURO EXAM: Normal sensorium, cranial nerves II-XII intact, normal speech, no weakness of arms, no weakness of legs. No drift. Finger to nose intact. Gross sensation intact. Medical Decision & Procedures ER Provider Diagnostic Interpretation: Radiology results as stated below per my review and the radiologist's interpretation: NUCLEAR MEDICINE VENTILATION/PERFUSION SCAN HISTORY: Right-sided chest pain. TECHNIQUE: Immediately following the inhalation of 33 mCi of technetium 99 M DTPA a ventilation scan was performed and immediately following the intravenous administration of 5.4 mCi of technetium 99 M MAA a perfusion scan was performed. Anterior, posterior, oblique, lateral views the chest were obtained. COMPARISON STUDY: Chest 04/17/2017. FINDINGS: Prominence of the cardiac silhouette. There or 2 small to moderate mismatched defects seen within the bilateral lower lobes. The upper lung zones perfuse normally. IMPRESSION: Above findings are consistent with an intermediate probability scan. Electronically signed by: Jose Jenkins M.D. 04/17/2017 2:21 PM Dictated Date/Time: 04/17/2017 2:15 PM CHEST ONE VIEW PORTABLE HISTORY: cough COMPARISON: Chest 04/13/2017. FINDINGS: The lungs are clear. No pleural effusions. No pneumothorax. The heart remains top normal in size. No evidence for pulmonary edema. No rib fractures. IMPRESSION: No significant change compared to the prior study. No acute process. Electronically signed by: Jose Jenkins M.D. 04/17/2017 10:52 AM Dictated Date/Time: 04/17/2017 10:51 AM VENOUS DOPPLER LWR EXT BILA CLINICAL HISTORY: 31 years-old Female presenting with pleuritic cp cant get ct pe. TECHNIQUE: Real-time grayscale and color and spectral Doppler ultrasound imaging of the veins of the bilateral lower extremities was performed. Compression and augmentation were also utilized. COMPARISON: 01/23/2017. FINDINGS: Right: Common femoral vein: Patent. Femoral vein: Patent. Greater saphenous vein: Patent. Popliteal vein: Patent. Calf veins: Patent. Left: Common femoral vein: Patent. Femoral vein: Patent. Greater saphenous vein: Patent. Popliteal vein: Patent. Calf veins: Patent. Other: None. IMPRESSION: No evidence of deep venous thrombosis. Electronically signed by: Hany Moreno M.D. 04/17/2017 1:09 PM Dictated Date/Time: 04/17/2017 1:08 PM Laboratory Results 04/17/17 11:06 Red Blood Count 3.14, Mean Corpuscular Volume 96.2, Mean Corpuscular Hemoglobin 32.2, Mean Corpuscular Hemoglobin Concent 33.4, Mean Platelet Volume 9.7, Neutrophils (%) (Auto) 71.4, Lymphocytes (%) (Auto) 15.5, Monocytes (%) (Auto) 7.0, Eosinophils (%) (Auto) 5.3, Basophils (%) (Auto) 0.4, Neutrophils # (Auto) 4.01, Lymphocytes # (Auto) 0.87, Monocytes # (Auto) 0.39, Eosinophils # (Auto) 0.30, Basophils # (Auto) 0.02 04/17/17 11:06 Test 04/17/17 11:06 04/17/17 15:42 04/17/17 16:30 White Blood Count 5.61 K/uL (4.8-10.8) Red Blood Count 3.14 M/uL (4.2-5.4) Hemoglobin 10.1 g/dL (12.0-16.0) Hematocrit 30.2 % (37-47) Mean Corpuscular Volume 96.2 fL (80-100) Mean Corpuscular Hemoglobin 32.2 pg (25-34) Mean Corpuscular Hemoglobin Concent 33.4 g/dl (32-36) Platelet Count 125 K/uL (130-400) Mean Platelet Volume 9.7 fL (7.4-10.4) Neutrophils (%) (Auto) 71.4 % Lymphocytes (%) (Auto) 15.5 % Monocytes (%) (Auto) 7.0 % Eosinophils (%) (Auto) 5.3 % Basophils (%) (Auto) 0.4 % Neutrophils # (Auto) 4.01 K/uL (1.4-6.5) Lymphocytes # (Auto) 0.87 K/uL (1.2-3.4) Monocytes # (Auto) 0.39 K/uL (0.11-0.59) Eosinophils # (Auto) 0.30 K/uL (0-0.5) Basophils # (Auto) 0.02 K/uL (0-0.2) RDW Standard Deviation 53.8 fL (36.4-46.3) RDW Coefficient of Variation 15.5 % (11.5-14.5) Immature Granulocyte % (Auto) 0.4 % Immature Granulocyte # (Auto) 0.02 K/uL (0.00-0.02) Prothrombin Time 10.3 SECONDS (9.0-12.0) Prothromb Time International Ratio 1.0 (0.9-1.1) Activated Partial Thromboplast Time 24.5 SECONDS (21.0-31.0) Partial Thromboplastin Ratio 0.9 Anion Gap 11.0 mmol/L (3-11) Est Creatinine Clear Calc Drug Dose 6.4 ml/min Estimated GFR () 3.6 Estimated GFR (Non- 3.1 BUN/Creatinine Ratio 5.3 (10-20) Calcium Level 8.6 mg/dl (8.5-10.1) Total Bilirubin 0.5 mg/dl (0.2-1) Direct Bilirubin 0.1 mg/dl (0-0.2) Aspartate Amino Transf (AST/SGOT) 16 U/L (15-37) Alanine Aminotransferase (ALT/SGPT) 25 U/L (12-78) Alkaline Phosphatase 91 U/L (45-117) Troponin I 0.023 ng/ml (0-0.045) Total Protein 7.7 gm/dl (6.4-8.2) Albumin 3.4 gm/dl (3.4-5.0) Lipase 281 U/L (73-393) Bedside Glucose 80 mg/dl (70-90) Laboratory results per my review. Medications Administered Medications (Trade) Dose Ordered Sig/Sachin Route Start Time Stop Time Status Last Admin Dose Admin Sodium Chloride 500 ml @ 999 mls/hr Q31M STAT IV 04/17/17 10:24 04/17/17 10:54 DC 04/17/17 11:13 999 MLS/HR Acetaminophen (Tylenol Tab) 1,000 mg NOW STAT PO 04/17/17 11:15 04/17/17 11:16 DC 04/17/17 11:22 1,000 MG Heparin Sodium/ Dextrose (Heparin 25,000 Unit/500ml D5W) 25,000 unit STK-MED ONCE .ROUTE 04/17/17 15:18 04/17/17 15:19 DC 04/17/17 15:31 25,000 UNIT Heparin Sodium (Porcine) (Heparin Iv Bolus) 10,000 unit STK-MED ONCE .ROUTE 04/17/17 15:20 04/17/17 15:21 DC 04/17/17 15:33 6,000 UNIT ECG Indication: other Rate (beats per minute): 71 Rhythm: normal sinus Findings: other (normal axis, poor baseline in lateral leads) ED Course ED COURSE: Vital signs were reviewed and showed normal vitals The patients medical record was reviewed The above diagnostic studies were performed and reviewed. ED treatments and interventions as stated above. 1013: The patient was evaluated in room B12B. A complete history and physical examination was performed. 1024: NSS 500 ml @ 999 mls/hr IV 1115: Tylenol 1000 mg PO 1212: I reassessed the patient and she is doing well. 1429: I reevaluated the patient and her VQ study has been completed. 1500: Upon reevaluation, the patient is doing well. She denies any bleeding risk factors. I discussed my findings with the patient and she understands and agrees with the treatment plan. Based on the patients age, coexisting illnesses, exam and lab findings the decision to treat as an inpatient was made. The patient remained stable while under my care. The patient will be evaluated for further management. 1502: Heparin Sodium/Dextrose 5000 units bolus and drip 1504: I reviewed the patient's case with Iris Alejandra PA-C. [facility] will evaluate the patient for further management. Medical Decision Differential diagnoses includes but is not limited to acute coronary syndrome, myocardial infarction, pericarditis, pulmonary embolus, aortic dissection, pneumonia, pneumothorax, musculoskeletal, shingles, esophageal. Medication Reconciliation: I attest that I have personally reviewed the patient' s current medication list. Blood pressure screening: Patient was found to have normal blood pressure on screening and does not require follow-up. Patient is a 31-year-old female who is peritoneal dialysis dependent that presents the ER for her seventh visit in the past month. She is complaining of right-sided pain from her hip all the way up to her shoulder associated with a pleuritic chest pain. She was seen here 2 days ago had a positive d-dimer. On exam patient does have reproducible tenderness. Troponin is tactile but not positive. Chest x-ray was clean. VQ study was performed as opposed to a CT PE per the direction of nephrology on the last visit. VQ study shows intermediate probability for PEs with moderate perfusion defects. Duplex of the lower extremity were unremarkable. With her secondary history she was started on heparin. She had no bleeding risk factors. She denies any hemoptysis, hematuria, melena, hematemesis, recent surgery, recent trauma, had bleeds or any other bleeding risk factors. Patient was given heparin drip and bolus. She was admitted to internal medicine for possible PEs. Consults Time Called: 1500 Consulting Physician: Iris Alejandra PA-C Returned Call: 1504 I reviewed the patient's case with Iris Alejandra PA-C. [facility] will evaluate the patient for further management. Impression Primary Impression: Right-sided chest pain Additional Impression: Pulmonary emboli Critical Care I have personally spent 35 minutes of critical care time in the direct management of this patient. This includes bedside care, interpretation of diagnostic studies, and testing, discussion with consultants, patient, and family members, and other required patient management activities. This 35 minutes is in excess of all separately billable procedures. Scribe Attestation The scribe's documentation has been prepared under my direction and personally reviewed by me in its entirety. I confirm that the note above accurately reflects all work, treatment, procedures, and medical decision making performed by me. Departure Information Dispostion Being Evaluated By Hospitalist Adolph Landin M.D. (PCP) Patient Instructions My [facility] Problem Qualifiers Additional Impression: Pulmonary emboli Pulmonary embolism type: other Chronicity: unspecified Acute cor pulmonale presence: without acute cor pulmonale Qualified Codes: I26.99 - Other pulmonary embolism without acute cor pulmonale
--- NOTE | 2017-04-17 14:22 | DIAGNOSTIC IMAGING REPORT ---
NUCLEAR MEDICINE VENTILATION/PERFUSION SCAN HISTORY: Right-sided chest pain. TECHNIQUE: Immediately following the inhalation of 33 mCi of technetium 99 M DTPA a ventilation scan was performed and immediately following the intravenous administration of 5.4 mCi of technetium 99 M MAA a perfusion scan was performed. Anterior, posterior, oblique, lateral views the chest were obtained. COMPARISON STUDY: Chest 04/17/2017. FINDINGS: Prominence of the cardiac silhouette. There or 2 small to moderate mismatched defects seen within the bilateral lower lobes. The upper lung zones perfuse normally. IMPRESSION: Above findings are consistent with an intermediate probability scan. Electronically signed by: Jose Jenkins M.D. 04/17/2017 2:21 PM Dictated Date/Time: 04/17/2017 2:15 PM
[2017-04-17] MEDS ORDERED: HEPARIN 25000 UNIT/500 ML D5W ONE (15:18)
[2017-04-17] MEDS ORDERED: HEPARIN SOD (PORCINE) 1000 UNIT/ML 10 ML VIAL ONE (15:20)
[2017-04-17 15:24] LABS: PARTIAL THROMBOPLASTIN RATIO 0.9; PROTHROMBIN TIME (PATIENT) 10.3 SECONDS (9.0-12.0)
[2017-04-17] MEDS ORDERED: FLUTICASONE PROPIONATE NA SPR 16 GM BTL NAE PRN (16:30)
[2017-04-17] MEDS ORDERED: CALCIUM ACETATE 667MG GELCAP PO PRN (16:30)
[2017-04-17] MEDS ORDERED: ALBUTEROL HFA 8 GM INHALER INH PRN (16:30)
[2017-04-17 16:38] VITALS: O2SAT 98; Ht 167.6 cm; Wt 83.6 kg
[2017-04-17] MEDS ORDERED: MoRPHine SULFATE 2 MG/ML CARP IV PRN (16:45)
[2017-04-17] MEDS ORDERED: GLUCOSE 40% GEL 15 GM TUBE PO PRN (17:15)
[2017-04-17] MEDS ORDERED: GLUCOSE 10 TABS/TUBE PO PRN (17:15)
[2017-04-17] MEDS ORDERED: DEXTROSE 50% 50 ML SYR IV PRN (17:15)
[2017-04-17] MEDS ORDERED: GLUCAGON FOR INJ 1 MG VIAL SQ PRN (17:15)
--- NOTE | 2017-04-17 17:15 | History and Physical ---
History & Physical Date & Time of Service: Apr 17, 2017 at 16:30 Chief Complaint: Dizzy,Pain In Right Side Of Ab Area Primary Care Physician: Adolph Aldridge M.D. History of Present Illness Source: patient, hospital records This is a 31 y/o female with PMH of ESRD on PD, DM type 2, HTN, 1/2 ppd smoker, chronic chest pain with negative cardiac cath in January 2017, and other problems listed below who presents to the ED for lightheadedness and right sided chest discomfort. Patient was recently admitted March 202016 for chest pain- no ACS , and symptomatic anemia requiring 1 unit pRBC. Had multiple ER visits since that time. Seen in ER 04/13/17 for chest pain, was noted to have D dimer elevated to 590, LE doppler ordered but patient left before it could be done. Seen again in ER on 04/15/17 for dizziness, was given IVF's and discharged to home. Pt states current chest pain started 4 days ago. Pain extends from right flank to her right shoulder, currently rated 9/10. Pain worsens with deep inspiration. States this feels different from prior chest pain. She reports lightheadedness/ pre-syncope upon standing x 2-3 days. Has been nauseous with decreased PO intake for past few days. No vomiting. Feels hungry now. Reports diarrhea x 1 month. States she is being worked up by GI as outpatient for pancreas issues. She reports diffuse cramping "all over." No change in urination. Does PD QID at home, but only did one session so far today. Denies syncope, cough, SOB, LE edema, weight gain. No recent travel. Has been ambulating normally. Last surgery was in January 2017- PD catheter placement and hernia repair. No injury or heavy lifting. No personal hx of VTE. Has family hx of blood clots in her father and brother. Past Medical/Surgical History Medical Problems: (1) CKD (chronic kidney disease) stage V requiring chronic dialysis Status: Chronic (2) DM2 (diabetes mellitus, type 2) Status: Chronic (3) Focal segmental glomerulosclerosis Status: Chronic (4) FSGS (focal segmental glomerulosclerosis) Status: Chronic (5) HTN (hypertension) Status: Chronic (6) Migraine Status: Chronic (7) Renal failure Permanent Comment: She has ESRD but is super non complaint with Dialysis. has missed dialysis for more than 2 weeks. As a result has lot of biochemical indicators of missing Dialysis--very lot Hgb, very low Calcium and very high BUn and creatinine. Because her BUN and creat is so high she is at risk for Dysequlibrium syndrome. So to avoid that will have to slow incremental dialysis. Will do 2hrs today, low qb dialysis. tomorrow will be 3 hrs and then Saturday will be 4 hrs. She is c/o Pain at the CVC site but it looks fine on exam and the Imaging. Will know further with Dialysis. I am surprised that despite such low Ca++ she still looks fine and no Symptoms. Status: Chronic Surgical Problems: (1) H/O knee surgery Status: Chronic (2) H/O tubal ligation Status: Chronic (3) H/O: Status: Chronic (4) Kidney transplant status, living related donor Status: Chronic Social History Problems: (1) Kidney transplanted Status: Chronic Family History Blood clots FATHER BROTHER Crohn's disease FATHER Diabetes mellitus MOTHER Hypertension SISTER Social History Smoking Status: Current Every Day Smoker (1/2 ppd) Alcohol Use: none Drug Use: none Marital Status: in relationship Housing status: lives with significant other Occupational Status: employed, other Immunizations History of Influenza Vaccine: Yes Influenza Vaccine Date: May 05, 2016 History of Tetanus Vaccine?: Yes Tetanus Immunization Date: Oct 09, 2011 History of Pneumococcal: Yes Pneumococcal Date: Dec 05, 2006 History of Hepatitis B Vaccine: Yes Hepatitis Immunization Date: May 21, 1998 Multi-Drug Resistant Organisms History of MDRO: No Allergies Coded Allergies: Cefaclor (Verified Allergy, Intermediate, Rash, 04/17/17) Reported by PT. Amoxicillin (Verified Adverse Reaction, Mild, VOMITING, 04/17/17) Clavulanic Acid (Verified Adverse Reaction, Mild, VOMITING, 04/17/17) Home Medications Scheduled Amlodipine Besylate (Amlodipine Besylate), 10 MG PO DAILY Calcitriol (Calcitriol), 2 CAP PO QAM Calcium Acetate (Phoslo 667 Mg), 4 CAP PO WM Calcium Acetate (Phoslo 667 Mg), 2 CAP PO WITH SNACKS Calcium Carbonate (Tums), 1,500 MG PO HS Carvedilol (Coreg), 6.25 MG PO BID Escitalopram Oxalate (Escitalopram Oxalate), 20 MG PO QAM Famotidine (Pepcid), 40 MG PO QAM Lisinopril (Lisinopril), 40 MG PO DAILY Mirtazapine (Remeron), 30 MG PO HS Trazodone Hcl (Trazodone), 50 MG PO HS Scheduled PRN Albuterol Hfa (Ventolin Hfa), 2 PUFFS INH Q4H PRN for SOB/Wheezing Fluticasone Propionate (Nasal) (Flonase Allergy Relief), 2 SPRAYS FRED DAILY PRN for Nasal Congestion Physical Exam Vital Signs Date Time Temp Pulse Resp B/P (MAP) Pulse Ox O2 Delivery O2 Flow Rate FiO2 04/17/17 14:20 73 18 125/72 98 Room Air 04/17/17 12:02 68 18 131/88 100 Room Air 04/17/17 11:15 67 17 121/77 100 Room Air 04/17/17 09:59 36.9 75 18 123/82 99 Room Air General Appearance: WD/WN, no apparent distress Head: normocephalic, atraumatic Eyes: normal inspection, sclerae normal ENT: hearing grossly normal, pharynx normal Neck: supple, trachea midline Respiratory/Chest: lungs clear, normal breath sounds, no respiratory distress, no accessory muscle use, + pertinent finding (reproducible tenderness on right lateral ribs and right upper chest) Cardiovascular: regular rate, rhythm, no murmur Abdomen/GI: normal bowel sounds, non tender, soft, + pertinent finding (PD catheter in place) Back: no CVA tenderness Extremities/Musculoskelatal: no calf tenderness, no pedal edema, + pertinent finding (right shoulder tender anteriorly, increasing discomfort with ROM) Neurologic/Psych: alert, normal mood/affect, oriented x 3 Skin: normal color, warm/dry, no rash (no rash on the chest) Diagnostics Laboratory Results Results Past 24 Hours Test 04/17/17 11:06 04/17/17 15:42 Range/Units White Blood Count 5.61 4.8-10.8 K/uL Red Blood Count 3.14 4.2-5.4 M/uL Hemoglobin 10.1 12.0-16.0 g/dL Hematocrit 30.2 37-47 % Mean Corpuscular Volume 96.2 80-100 fL Mean Corpuscular Hemoglobin 32.2 25-34 pg Mean Corpuscular Hemoglobin Concent 33.4 32-36 g/dl Platelet Count 125 130-400 K/uL Mean Platelet Volume 9.7 7.4-10.4 fL Neutrophils (%) (Auto) 71.4 % Lymphocytes (%) (Auto) 15.5 % Monocytes (%) (Auto) 7.0 % Eosinophils (%) (Auto) 5.3 % Basophils (%) (Auto) 0.4 % Neutrophils # (Auto) 4.01 1.4-6.5 K/uL Lymphocytes # (Auto) 0.87 1.2-3.4 K/uL Monocytes # (Auto) 0.39 0.11-0.59 K/uL Eosinophils # (Auto) 0.30 0-0.5 K/uL Basophils # (Auto) 0.02 0-0.2 K/uL RDW Standard Deviation 53.8 36.4-46.3 fL RDW Coefficient of Variation 15.5 11.5-14.5 % Immature Granulocyte % (Auto) 0.4 % Immature Granulocyte # (Auto) 0.02 0.00-0.02 K/uL Prothrombin Time 10.3 9.0-12.0 SECONDS Prothromb Time International Ratio 1.0 0.9-1.1 Activated Partial Thromboplast Time 24.5 21.0-31.0 SECONDS Partial Thromboplastin Ratio 0.9 Sodium Level 136 136-145 mmol/L Potassium Level 4.9 3.5-5.1 mmol/L Chloride Level 100 98-107 mmol/L Carbon Dioxide Level 25 21-32 mmol/L Anion Gap 11.0 3-11 mmol/L Blood Urea Nitrogen 74 7-18 mg/dl Creatinine 14.00 0.60-1.20 mg/dl Est Creatinine Clear Calc Drug Dose 6.4 ml/min Estimated GFR () 3.6 Estimated GFR (Non- 3.1 BUN/Creatinine Ratio 5.3 10-20 Random Glucose 88 70-99 mg/dl Calcium Level 8.6 8.5-10.1 mg/dl Total Bilirubin 0.5 0.2-1 mg/dl Direct Bilirubin 0.1 0-0.2 mg/dl Aspartate Amino Transf (AST/SGOT) 16 15-37 U/L Alanine Aminotransferase (ALT/SGPT) 25 12-78 U/L Alkaline Phosphatase 91 45-117 U/L Troponin I 0.023 0-0.045 ng/ml Total Protein 7.7 6.4-8.2 gm/dl Albumin 3.4 3.4-5.0 gm/dl Lipase 281 73-393 U/L Bedside Glucose 80 70-90 mg/dl Diagnostic Radiology NUCLEAR MEDICINE VENTILATION/PERFUSION SCAN HISTORY: Right-sided chest pain. TECHNIQUE: Immediately following the inhalation of 33 mCi of technetium 99 M DTPA a ventilation scan was performed and immediately following the intravenous administration of 5.4 mCi of technetium 99 M MAA a perfusion scan was performed. Anterior, posterior, oblique, lateral views the chest were obtained. COMPARISON STUDY: Chest 04/17/2017. FINDINGS: Prominence of the cardiac silhouette. There or 2 small to moderate mismatched defects seen within the bilateral lower lobes. The upper lung zones perfuse normally. IMPRESSION: Above findings are consistent with an intermediate probability scan. CHEST ONE VIEW PORTABLE IMPRESSION: No significant change compared to the prior study. No acute process. VENOUS DOPPLER LWR EXT BILA IMPRESSION: No evidence of deep venous thrombosis. EKG NSR, nonspecific T wave abnormality in III- chronic, no ST change Impression Assessment and Plan PULMONARY EMBOLI Presents with chest pain, lightheadedness D dimer elevated to 590 on prior ER visit 04/13/17, also chronically elevated in the past CTA could not be done due to ESRD VQ scan done in ER- intermediate probability, 2 small to moderate mismatched defects in bilateral lower lobes EKG shows no acute findings Check echo to rule out RV strain Family history of VTE noted, hypercoagulable workup ordered Started on heparin drip in ER- continue Start Coumadin 5 mg tomorrow LIGHTHEADEDNESS Check orthostatic VS Received 500 mL bolus in ER HYPERTENSION BP is stable Continue amlodipine, carvedilol DM TYPE 2 Diet controlled Novolog sliding scale coverage DEPRESSION Continue Lexapro ESRD ON PD Consult nephrology for PD management TOBACCO ABUSE Counselled patient about smoking cessation- states she is trying to quit FULL CODE DISPOSITION Telemetry Follows with Dr. Aldridge for primary care Patient seen in collaboration with Dr. Victor. Please see his addendum. Attending Addendum: The patient was seen and examined in ER Right sided CP worse with deep breathing for the last few days Strong family history of Blood Clot Denied any palpitation,SOB ,nausea ,vomiting or sweating VQ scan was intermediate probability of Pulmonary Embolism O/E Still has some pain No distress otherwise Chest-clear to auscultate bilaterally Heart-regular Abdomen-benign Abdomen-benign Labs and Imaging studies were reviewed Likely Pulmonary Embolism with strong family h/o Pul Embolism Check Hypercoagulable factors Started on Heparin with transition to Coumadin Agree with the assessment and plan Dr Joaquina Victor VTE Prophylaxis VTE Risk Assessment Done? Y/N: Yes Risk Level: Moderate Given or contraindicated: Unfractionated heparin SQ, Other Anticoagulation
[2017-04-17 17:53] VITALS: BP 138/86; PULSE 71; TEMP 36.7; O2SAT 100
[2017-04-17] MEDS: CALCIUM ACETATE 667MG GELCAP PO SCH (17:53)
[2017-04-17] MEDS ORDERED: HEPARIN 25,000 UNIT/500ML D5W 500 ML IV PRN (18:00)
[2017-04-17] MEDS ORDERED: NURSING VERBAL MED ORDER ONE ×2 (20:15→20:30)
[2017-04-17] MEDS ORDERED: ZOLPIDEM TARTRATE 5 MG TAB PO PRN (20:30)
[2017-04-17] MEDS: INSULIN ASPART 100 UNITS/ML 3 ML PEN SC SCH (20:45)
[2017-04-17] MEDS: TRAZODONE HCL 50 MG TAB PO SCH (20:56)
[2017-04-17] MEDS: CARVEDILOL 6.25 MG TAB PO SCH (20:56)
[2017-04-17] MEDS: MIRTAZAPINE TAB 15 MG TAB PO SCH (20:57)
[2017-04-17 21:20] VITALS: BP 113/67; PULSE 65; TEMP 36.7; O2SAT 93
[2017-04-17 21:22] LABS: PREG INTERNAL NEGATIVE QC NEG CLEAR BACKGROUND; PREG INTERNAL POSITIVE QC POS CONTROL LINE; URINE APPEARANCE CLOUDY (CLEAR); URINE BILIRUBIN NEG (NEG); URINE COLOR YELLOW; URINE EPITHELIAL CELL AUTO >30 /lpf (0-5); URINE NITRITE NEG (NEG); URINE PH 8.5 (4.5-7.5); UROBILINOGEN NEG (NEG); ZZUR CULT IF INDIC CLEAN CATCH YES
[2017-04-17 21:31] VITALS: BP 127/83; PULSE 69; TEMP 36.5
[2017-04-17 21:35] LABS: MANUAL MICROSCOPIC REQUIRED? NO; REVIEW REQ? YES
[2017-04-17 21:38] LABS: SULFASALICYLIC ACID POS (NEG)
[2017-04-17 21:42] VITALS: BP 113/67; PULSE 65; TEMP 36.7
--- NOTE | 2017-04-17 21:45 | Progress Note ---
Progress Note Date of Service Apr 17, 2017. 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
[2017-04-17 22:00] LABS: PARTIAL THROMBOPLASTIN RATIO 3.1
[2017-04-17 22:19] LABS: PERIT FL WBC 251 /uL (0-300); PERITONEAL FLUID RBC 93000 /uL
--- NOTE | 2017-04-17 22:27 | DIAGNOSTIC IMAGING REPORT ---
CT SCAN OF THE ABDOMEN AND PELVIS WITHOUT IV CONTRAST CLINICAL HISTORY: Bleeding during peritoneal dialysis. COMPARISON STUDY: Abdominal CT dated 03/06/2017. TECHNIQUE: CT scan of the abdomen and pelvis is performed from the lung bases to the proximal femora. Images are reviewed in the axial, sagittal, and coronal planes. IV contrast was not administered for this examination as per the referring clinician. Note that the examination is suboptimal without oral and IV contrast. A dose lowering technique was utilized adhering to the principles of ALARA. CT DOSE: 764.87 mGy.cm FINDINGS: Lung bases: The heart is normal in size and without pericardial effusion. There are coronary artery calcifications. The lung bases are clear. Liver: The unenhanced liver is normal in size, contour, and attenuation. There is no intrahepatic biliary ductal dilatation. Gallbladder: Surgically absent. Spleen: Normal in size and attenuation. Pancreas: Unremarkable. Adrenal glands: Unremarkable. Kidneys: The unenhanced kidneys are markedly atrophic and without hydronephrosis. There are no renal calculi identified. There is no evidence of contour deforming renal mass lesion. Abdominal vasculature: The abdominal aorta is normal in course and caliber noting mild atherosclerotic calcification. Bowel: The small bowel and colon are normal in course and caliber. The appendix is not identified. Peritoneum and retroperitoneum: A peritoneal dialysis catheter is coiled in the right lower quadrant from a midline approach. There is a small to moderate volume of free fluid in the abdomen and pelvis. There is layering hyperdense fluid in the pelvis consistent with hemoperitoneum. No retroperitoneal hematoma is seen. No intraperitoneal free air is identified. Lymphadenopathy: None. Pelvic viscera: The bladder is decompressed and grossly unremarkable. The uterus are normal as visualized. There is a 4.3 cm cyst in the right ovary which contains hyperdense fluid. Left ovarian follicles are noted. A densely calcified structure in the right adnexa likely represents an atrophic renal transplant. Skeletal structures: No lytic or blastic lesions are seen. IMPRESSION: 1. There is a small to moderate volume of free fluid in the abdomen and pelvis, likely related to peritoneal dialysis. 2. There is a small volume of layering hyperdense fluid in the pelvis consistent with hemoperitoneum. This is of indeterminate etiology, and may be related to a ruptured hemorrhagic right ovarian cyst as there is a 4.3 cm cystic lesion seen in the right ovary which also appears to contain hyperdense fluid. 3. No organized hematoma is identified. 4. A calcified structure in the right pelvis likely represents an atrophic renal transplant. Electronically signed by: North Quintero M.D. 04/17/2017 10:25 PM Dictated Date/Time: 04/17/2017 10:14 PM
[2017-04-17 23:18] LABS: HEMATOCRIT 25.3 % (37-47)
--- NOTE | 2017-04-17 23:29 | Progress Note ---
Progress Note Date of Service Apr 17, 2017. Progress Note CT abdomen /pelvis shows rt sided ruptured Hge ovarian cyst pt continued to complain of 8/10 pain on rt lower quadrant ,no relief with IV morphine H& H shows drop from 10-> 8.6 cont to hold IV heparin Type and cross 2 units of PRBC tx if HB <7 changed Pain medication to IV Dilaudid
[2017-04-17 23:34] VITALS: BP 100/61; PULSE 71; TEMP 36.7; O2SAT 97
[2017-04-18] MEDS: HYDROmorphone INJ 2 MG/ML SYR/VIAL IV PRN ×5 (00:25→22:26)
[2017-04-18] MEDS ORDERED: NURSING VERBAL MED ORDER ONE (02:45)
[2017-04-18] MEDS: HYDROmorphone INJ 1 MG/ML SYR IV PRN (04:36)
[2017-04-18] MEDS: INSULIN ASPART 100 UNITS/ML 3 ML PEN SC SCH ×4 (07:00→20:51)
[2017-04-18 07:26] LABS: HEMATOCRIT 24.9 % (37-47); MEAN CELL VOLUME 97.6 fL (80-100); MEAN CORPUSCULAR HGB CONC 31.7 g/dl (32-36); MEAN PLATELET VOLUME 9.3 fL (7.4-10.4); PLATELET COUNT 106 K/uL (130-400); RED BLOOD COUNT 2.55 M/uL (4.2-5.4); WHITE BLOOD COUNT 5.36 K/uL (4.8-10.8)
[2017-04-18] MEDS: CALCIUM ACETATE 667MG GELCAP PO SCH ×3 (07:30→16:23)
[2017-04-18 07:40] LABS: PARTIAL THROMBOPLASTIN RATIO 0.9
[2017-04-18 08:28] LABS: BUN/CREATININE RATIO 5.1 (10-20); CALCIUM 8.1 mg/dl (8.5-10.1); MAGNESIUM 2.2 mg/dl (1.8-2.4); POTASSIUM 4.8 mmol/L (3.5-5.1)
[2017-04-18] MEDS: LISINOPRIL 40 MG TAB PO SCH (08:43)
[2017-04-18] MEDS: CARVEDILOL 6.25 MG TAB PO SCH ×2 (08:43→20:28)
[2017-04-18] MEDS: ESCITALOPRAM OXALATE 20 MG TAB PO SCH (08:44)
[2017-04-18] MEDS: AMLODIPINE BESYLATE 5 MG TAB PO SCH (08:45)
[2017-04-18] MEDS: CALCITRIOL 0.25 MCG CAP PO SCH (08:45)
[2017-04-18] MEDS: FAMOTIDINE 20 MG TAB PO SCH (08:45)
[2017-04-18 08:54] LABS: PHOSPHORUS 9.4 mg/dl (2.5-4.9)
--- NOTE | 2017-04-18 09:15 | ECHOCARDIOGRAM REPORT ---
*NOTICE TO RECEIVING [employer] This information is strictly Confidential and protected under [place] law. [place] law prohibits you from making any further disclosure of this information unless further disclosure is expressly permitted by the written consent of the person to whom it pertains or is authorized by law. A general authorization for the release of medical or other information is not sufficient for this purpose. Hospital accepts no responsibility if the information is made available to any other person, INCLUDING THE PATIENT. Interpretation Summary * Name: NATHALIA DUTTON Study Date: 04/18/2017 06:55 AM BP: 100/61 mmHg * Patient Location: C.2T\S\E219\S\1 HR: 71 * : 1985 (M/d/yyyy) Gender: Female Height: 66 in * Age: 31 yrs Ethnicity: CA Weight: 189 lb * Ordering Physician: Ade Self * Referring Physician: Self, Referred * Performed By: Odell Huerta RCS * * Reason For Study: Pulm. Embolism, Eval for right Heart Strain * BSA: 2.0 m2 * The study was technically adequate. * Compared to prior study, changes are noted. * -- Conclusions -- * Left ventricular systolic function is normal. * Ejection Fraction = 60-65%. * There is borderline concentric left ventricular hypertrophy. * Diastolic dysfunction, Grade II (pseudonormalization pattern). * There is trace mitral regurgitation. * The right ventricle is normal size. * The right ventricular systolic function is normal as assessed by tricuspid annular plane systolic excursion (TAPSE) (normal >1.5 cm). Procedure Details * A complete two-dimensional transthoracic echocardiogram was performed (2D, M-mode, Doppler and color flow Doppler). Left Ventricle * The left ventricle is normal in size. * There is no thrombus. * There is borderline concentric left ventricular hypertrophy. * Left ventricular systolic function is normal. * Ejection Fraction = 60-65%. * The left ventricular wall motion is normal. Right Ventricle * The right ventricle is normal size. * The right ventricular systolic function is normal as assessed by tricuspid annular plane systolic excursion (TAPSE) (normal >1.5 cm). Atria * The left atrial size is normal. * Right atrial size is normal. * There is no evidence of atrial septal defect, but resolution does not allow assessment for a patent foramen ovale. Mitral Valve * The mitral valve is normal. * There is no mitral valve stenosis. * There is trace mitral regurgitation. Tricuspid Valve * The tricuspid valve is normal. * There is no tricuspid stenosis. * Significant tricuspid regurgitation is absent. Aortic Valve * The aortic valve is trileaflet. * Aortic stenosis is absent. * There is no significant aortic regurgitation. Pulmonic Valve * The pulmonary valve is inadequately visualized, but the Doppler data is adequate for interpretation. * There is no pulmonic valvular stenosis. * Trace pulmonic valvular regurgitation. Pericardium/Pleural * There is no pericardial effusion. Great Vessels * Normal inferior vena cava diameter and respiratory variation suggests normal central venous pressure. Left Ventricular Diastolic Function * Diastolic dysfunction, Grade II (pseudonormalization pattern). MMode 2D Measurements and Calculations IVSd 1.0 cm IVSs 1.5 cm LVIDd 5.7 cm LVIDs 3.8 cm LVPWd 1.0 cm LVPWs 1.5 cm IVS/LVPW 0.97 FS 33.4 % EDV(Teich) 158.7 ml ESV(Teich) 61.2 ml EF(Teich) 61.4 % EDV(cubed) 183.1 ml ESV(cubed) 54.0 ml EF(cubed) 70.5 % % IVS thick 49.5 % % LVPW thick 44.8 % LV mass(C)d 232.7 grams LV mass(C)dI 119.2 grams/m\S\2 LV mass(C)s 217.3 grams LV mass(C)sI 111.3 grams/m\S\2 CO(Teich) 6.4 l/min CI(Teich) 3.3 l/min/m\S\2 SV(Teich) 97.5 ml SI(Teich) 49.9 ml/m\S\2 CO(cubed) 8.5 l/min CI(cubed) 4.4 l/min/m\S\2 SV(cubed) 129.1 ml SI(cubed) 66.1 ml/m\S\2 Ao root diam 3.6 cm Ao root area 10.1 cm\S\2 ACS 2.0 cm LA dimension 4.0 cm asc Aorta Diam 3.2 cm LA/Ao 1.1 LVAd ap4 39.3 cm\S\2 LVLd ap4 9.1 cm EDV(MOD-sp4) 137.0 ml LVAs ap4 26.9 cm\S\2 LVLs ap4 8.5 cm ESV(MOD-sp4) 68.0 ml EF(MOD-sp4) 50.4 % LVAd ap2 36.4 cm\S\2 LVLd ap2 9.1 cm EDV(MOD-sp2) 122.0 ml LVAs ap2 21.9 cm\S\2 LVLs ap2 7.6 cm ESV(MOD-sp2) 55.0 ml EF(MOD-sp2) 54.9 % CO(MOD-sp4) 4.6 l/min CI(MOD-sp4) 2.3 l/min/m\S\2 SV(MOD-sp4) 69.0 ml SI(MOD-sp4) 35.3 ml/m\S\2 CO(MOD-sp2) 4.4 l/min CI(MOD-sp2) 2.3 l/min/m\S\2 SV(MOD-sp2) 67.0 ml SI(MOD-sp2) 34.3 ml/m\S\2 Doppler Measurements and Calculations MV E max rosa 102.8 cm/sec MV A max rosa 68.1 cm/sec MV E/A 1.5 MV P1/2t max rosa 108.2 cm/sec MV P1/2t 82.8 msec MVA(P1/2t) 2.7 cm\S\2 MV dec slope 382.6 cm/sec\S\2 MV dec time 0.30 sec Ao V2 max 137.3 cm/sec Ao max PG 7.5 mmHg Ao max PG (full) 2.4 mmHg LV V1 max PG 5.1 mmHg LV V1 max 113.1 cm/sec PA V2 max 115.8 cm/sec PA max PG 5.4 mmHg PI max rosa 202.7 cm/sec PI max PG 16.4 mmHg PI dec slope 260.1 cm/sec\S\2 PI P1/2t 228.3 msec
[2017-04-18] MEDS ORDERED: VANCOMYCIN INJ 1,000 MG in SODIUM CHLORIDE 0.9% 250ML 250 ML IV ONE ×2 (10:34→11:00)
[2017-04-18] MEDS ORDERED: CEFTAZIDIME IV 1 GM in DEXTROSE 5% ADD-VANTAGE 50ML 50 ML IV ONE (11:00)
[2017-04-18 11:26] VITALS: BP 114/75; PULSE 68; TEMP 36.3; O2SAT 96
[2017-04-18] MEDS: ONDANSETRON INJ 2 MG/ML 2 ML VIAL IV PRN ×2 (11:47→20:51)
[2017-04-18] MEDS: ACETAMINOPHEN 325 MG TAB PO PRN ×3 (11:47→20:23)
--- NOTE | 2017-04-18 15:24 | Progress Note ---
Internal Med Progress Note Date of Service: Apr 18, 2017. Provider Documentation: SUBJECTIVE: The patient was seen and examined Has had Abdominal pain last night and CT of the Abdomen and Pelvis did show ruptured ovarian Follicle Peritoneal cath draining was bloody and was stopped Heparin is on hold as well OBJECTIVE: Vital Signs-as noted below Exam: General-No distress at rest Eyes-normal ENT-normal Neck-supple Lungs-Clear to ausucltate bilaterally Heart-Regular,no murmur appreciated Abdomen-Benign,no masses,bowel sound present Extremities-Trace edema bilaterally Neuro-AAOx3 Lab data as noted below. ASSESSMENT & PLAN: PULMONARY EMBOLI Presents with chest pain, lightheadedness D dimer elevated to 590 on prior ER visit 04/13/17, also chronically elevated in the past CTA could not be done due to ESRD VQ scan done in ER- intermediate probability, 2 small to moderate mismatched defects in bilateral lower lobes EKG shows no acute findings and ECHO as above -no RV starin Family history of VTE noted, hypercoagulable workup ordered Started on heparin drip in ER-has been on hold for now Start Coumadin 5 from tomorrow after starting Heparin Ruptured right Hemorrhagic cyst Presented with Abdominal pain CT -suggestive of ruptured hemorrhagic right ovarian cyst ESRD ON PD Peritoneal drainage contained blood Has been on Hold for now Likely to have HD today and continue until PD acn be used LIGHTHEADEDNESS Check orthostatic VS Received 500 mL bolus in ER HYPERTENSION BP is stable Continue amlodipine, carvedilol DM TYPE 2 Diet controlled Novolog sliding scale coverage Chronic Anemai Likely due to ESRD Hb Dropped will monitor DEPRESSION Continue Lexapro TOBACCO ABUSE Counselled patient about smoking cessation- states she is trying to quit FULL CODE DISPOSITION Telemetry Follows with Dr. Aldridge for primary care Vital Signs: Date Time Temp Pulse Resp B/P (MAP) Pulse Ox O2 Delivery O2 Flow Rate FiO2 04/18/17 12:00 Room Air 04/18/17 11:26 36.3 68 16 114/75 (88) 96 Room Air 04/18/17 08:00 Room Air 04/18/17 04:04 Room Air 04/18/17 00:01 Room Air 04/17/17 23:34 36.7 71 16 100/61 (74) 97 Room Air 04/17/17 21:42 36.7 65 16 113/67 (82) 04/17/17 21:31 36.5 69 127/83 (98) 04/17/17 21:20 36.7 65 18 113/67 (82) 93 Room Air 04/17/17 19:44 Room Air 04/17/17 17:53 36.7 71 16 138/86 (103) 100 Room Air 04/17/17 17:19 70 18 134/77 98 Room Air 04/17/17 16:38 98 Room Air Lab Results: Results Past 24 Hours Test 04/17/17 15:42 04/17/17 16:54 04/17/17 20:43 04/17/17 21:00 Range/Units Bedside Glucose 80 120 70-90 mg/dl Peritoneal Fluid Color RED Peritoneal Fluid Appearance BLOODY Peritoneal Fluid WBC 251 0-300 /uL Peritoneal Fluid RBC 09262 /uL Peritoneal Fld Mononuclear WBCs (%) 38.8 % Peritoneal Fld Polynuclear WBCs (%) 61.2 % Test 04/17/17 21:31 04/17/17 23:08 04/18/17 06:30 04/18/17 07:15 Range/Units Activated Partial Thromboplast Time 79.7 23.8 21.0-31.0 SECONDS Partial Thromboplastin Ratio 3.1 0.9 Hemoglobin 8.6 7.9 12.0-16.0 g/dL Hematocrit 25.3 24.9 37-47 % Bedside Glucose 88 70-90 mg/dl White Blood Count 5.36 4.8-10.8 K/uL Red Blood Count 2.55 4.2-5.4 M/uL Mean Corpuscular Volume 97.6 80-100 fL Mean Corpuscular Hemoglobin 31.0 25-34 pg Mean Corpuscular Hemoglobin Concent 31.7 32-36 g/dl RDW Standard Deviation 54.3 36.4-46.3 fL RDW Coefficient of Variation 15.4 11.5-14.5 % Platelet Count 106 130-400 K/uL Mean Platelet Volume 9.3 7.4-10.4 fL Sodium Level 136 136-145 mmol/L Potassium Level 4.8 3.5-5.1 mmol/L Chloride Level 102 98-107 mmol/L Carbon Dioxide Level 22 21-32 mmol/L Anion Gap 12.0 3-11 mmol/L Blood Urea Nitrogen 77 7-18 mg/dl Creatinine 15.00 0.60-1.20 mg/dl Est Creatinine Clear Calc Drug Dose 6.0 ml/min Estimated GFR () 3.3 Estimated GFR (Non- 2.8 BUN/Creatinine Ratio 5.1 10-20 Random Glucose 84 70-99 mg/dl Calcium Level 8.1 8.5-10.1 mg/dl Phosphorus Level 9.4 2.5-4.9 mg/dl Magnesium Level 2.2 1.8-2.4 mg/dl Test 04/18/17 11:24 Range/Units Bedside Glucose 90 70-90 mg/dl Microbiology Results 04/17/17 Gram Stain - Final, Resulted 04/17/17 Bacterial Culture - Preliminary, Resulted NO GROWTH TO DATE.
[2017-04-18 15:46] VITALS: BP 108/71; PULSE 66; TEMP 36.8; O2SAT 97
[2017-04-18] MEDS ORDERED: WARFARIN SOD 5 MG TAB PO SCH (16:00)
--- NOTE | 2017-04-18 17:34 | Nephrology Consultation ---
Nephrology Consultation Date of Consultation: Apr 18, 2017. Attending Physician: Dr Victor Requesting Physician: Dr Victor Reason for Consultation: ESRD on PD History of Present Illness 31 year old female admitted yesterday after she presented w/ R sided pleuritic chest pain and R abd pain. She has esrd and recently started PD; she is not yet on the cycler but does exchanges at home. Also w/ hx of HTN, noncardiac chest pain, failed renal txplt, active tobacco abuse, recent admissions for pancreatitis s/p cholecystectomy and as below. Workup included VQ scan which was indeterminate for PE; also with strong FH of VTE. She was started on a heparin gtt; LE dopplers were negative. TTE planned for today. Heparin however had to be stopped last evening b/c when hooked to cycler, 500 mL ed blood was drained. PD fluid studies were obtained but PD tx was stopped. This am pt is on RA and no heparin. Pt endorses diarrhea for the past month and plan was to see GI about this and about pancreas. Past Medical/Surgical History -ESRD recently transitioned from HD to PD; has AVF; also s/p PD cath placement and multiple TDC; under care of Dr. Jo at [facility] -hx of nonadherence to dialysis regimen though she has done better with this recently -active tobacco abuse -htn -diabetes -failed kidney transplant -tubal ligation - Family History Blood clots FATHER BROTHER Crohn's disease FATHER Diabetes mellitus MOTHER Hypertension SISTER Social History Smoking Status: Current Every Day Smoker (1/2 ppd) Alcohol Use: none Drug Use: none Marital Status: in relationship Housing Status: lives with family, lives with significant other Occupation Status: employed, other Allergies Coded Allergies: Cefaclor (Verified Allergy, Intermediate, Rash, 04/17/17) Reported by PT. Amoxicillin (Verified Adverse Reaction, Mild, VOMITING, 04/17/17) Clavulanic Acid (Verified Adverse Reaction, Mild, VOMITING, 04/17/17) Medications Current Inpatient Medications Medications (Trade) Dose Ordered Sig/Sachin Route Start Time Stop Time Status Last Admin Dose Admin Acetaminophen (Tylenol Tab) 650 mg Q4H PRN PO 04/17/17 16:15 05/17/17 16:14 Ondansetron HCl (Zofran Inj) 4 mg Q6H PRN IV 04/17/17 16:15 05/17/17 16:14 Albuterol (Ventolin Hfa Inhaler) 2 puffs Q4H PRN INH 04/17/17 16:30 05/17/17 16:29 Calcium Acetate (Phoslo Cap) 1,334 mg UD PRN PO 04/17/17 16:30 05/17/17 16:29 Calcium Acetate (Phoslo Cap) 2,668 mg TIDM PO 04/17/17 17:53 05/17/17 17:59 Carvedilol (Coreg Tab) 6.25 mg BID PO 04/17/17 21:00 05/17/17 20:59 04/17/17 20:56 6.25 MG Escitalopram Oxalate (Lexapro Tab) 20 mg QAM PO 04/18/17 09:00 05/18/17 08:59 Famotidine (Pepcid Tab) 40 mg QAM PO 04/18/17 09:00 05/18/17 08:59 Fluticasone Propionate (Flonase Nasal [place]) 2 sprays DAILY PRN FRED 04/17/17 16:30 05/17/17 16:29 Lisinopril (Zestril Tab) 40 mg DAILY PO 04/18/17 09:00 05/18/17 08:59 Mirtazapine (Remeron Tab) 30 mg HS PO 04/17/17 21:00 05/17/17 20:59 04/17/17 20:57 30 MG Trazodone HCl (Desyrel Tab) 50 mg HS PO 04/17/17 21:00 05/17/17 20:59 04/17/17 20:56 50 MG Amlodipine Besylate (Norvasc Tab) 10 mg DAILY PO 04/18/17 09:00 05/18/17 08:59 Calcitriol (Rocaltrol Cap) 1 mcg QAM PO 04/18/17 09:00 05/18/17 08:59 Insulin Aspart (novoLOG ASPART) SLIDING SCALE If C... ACHS SC 04/17/17 21:00 05/17/17 20:59 Glucose (Glucose 40% Gel) 15-30 GRAMS 15 GRAMS... UD PRN PO 04/17/17 17:15 05/17/17 17:14 Glucose (Glucose Chew Tab) 4-8 Tablets 4 Tabl... UD PRN PO 04/17/17 17:15 05/17/17 17:14 Dextrose (Dextrose 50% 50ML Syringe) 25-50ML OF 50% DW IV FOR... UD PRN IV 04/17/17 17:15 05/17/17 17:14 Glucagon (Glucagon Inj) 1 mg UD PRN SQ 04/17/17 17:15 05/17/17 17:14 Heparin Sodium/ Dextrose 500 ml @ 25 mls/hr Q20H PRN IV 04/17/17 18:00 05/17/17 17:59 Future Hold Hydromorphone HCl (Dilaudid Inj) 1 mg Q4 PRN IV 04/17/17 23:30 05/01/17 23:29 04/18/17 04:36 1 MG Hydromorphone HCl (Dilaudid Inj) 2 mg Q4 PRN IV 04/17/17 23:30 05/01/17 23:29 04/18/17 00:25 2 MG Diphenhydramine HCl (Benadryl Cap) 25 mg Q8H PRN PO 04/18/17 02:45 05/18/17 02:44 04/18/17 03:09 25 MG Home Meds and Scripts Medications Dose Route/Sig Max Daily Dose Days Date Category Dose Instructions Calcitriol 0.5 Mcg Cap 2 Cap PO QAM 04/13/17 Reported Lisinopril 40 Mg Tab 40 Mg PO DAILY 03/06/17 Reported Amlodipine Besylate 10 Mg Tab 10 Mg PO DAILY 03/06/17 Reported Flonase Allergy Relief (Fluticasone Propionate (Nasal)) 50 Mcg/Act Spr 2 Sprays FRED DAILY PRN 02/14/17 Reported Coreg (Carvedilol) 3.125 Mg Tab 6.25 Mg PO BID 02/09/17 Reported TWO 3.125 MG TABLETS TWICE DAILY, PER PATIENT. Pepcid (Famotidine) 40 Mg Tab 40 Mg PO QAM 01/22/17 Reported Tums (Calcium Carbonate) 500 Mg Chew 1,500 Mg PO HS 01/19/17 Reported Phoslo 667 Mg (Calcium Acetate) 667 Mg Cap 2 Cap PO WITH SNACKS 12/02/16 Reported TAKE 2 CAPSULES WITH SNACKS Escitalopram Oxalate 20 Mg Tab 20 Mg PO QAM 12/02/16 Reported Trazodone (Trazodone HCl) 50 Mg Tab 50 Mg PO HS 11/18/16 Reported Phoslo 667 Mg (Calcium Acetate) 667 Mg Cap 4 Cap PO WM 11/18/16 Reported TAKE 4 CAPSULES WITH MEALS Remeron (Mirtazapine) 30 Mg Tab 30 Mg PO HS 08/24/16 Reported Ventolin Hfa (Albuterol) 200 Puffs/20571 Mcg Aers 2 Puffs INH Q4H PRN 07/05/16 Reported Review of Systems Constitutional: + fatigue, No fever, No weight loss Eyes: No worsening of vision ENT: No hearing loss Respiratory: + shortness of breath (pleuritic chest pain cesar on R), No cough Cardiac: + chest pain (on R side has pain jaw to hip) Abdomen: + pain, + nausea, + diarrhea (x weeks she states), No vomiting, No constipation Musculoskeletal: No joint pain, No muscle pain Female : + problem reported (no change in chronic voiding habits), No dysuria , No urinary frequency, No hematuria Neuro: No memory loss, No weakness Psych: + anxiety, No depression symptoms Heme: + abnormal bleeding/bruising (had pRBC late last month on admission; no ed bleeding) Endo: + fatigue Skin: No rash, No new/changing skin lesions Physical Exam Date Time Temp Pulse Resp B/P (MAP) Pulse Ox O2 Delivery O2 Flow Rate FiO2 04/18/17 04:04 Room Air 04/18/17 00:01 Room Air 04/17/17 23:34 36.7 71 16 100/61 (74) 97 Room Air 04/17/17 21:42 36.7 65 16 113/67 (82) 04/17/17 21:31 36.5 69 127/83 (98) 04/17/17 21:20 36.7 65 18 113/67 (82) 93 Room Air 04/17/17 19:44 Room Air 04/17/17 17:53 36.7 71 16 138/86 (103) 100 Room Air 04/17/17 17:19 70 18 134/77 98 Room Air 04/17/17 16:38 98 Room Air 04/17/17 14:20 73 18 125/72 98 Room Air 04/17/17 12:02 68 18 131/88 100 Room Air 04/17/17 11:15 67 17 121/77 100 Room Air 04/17/17 09:59 36.9 75 18 123/82 99 Room Air General Appearance: WD/WN, no apparent distress (on RA, maneuvers w/ effort for exam) Eyes: EOMI ENT: hearing grossly normal Neck: supple Respiratory/Chest: lungs clear, normal breath sounds, no respiratory distress ( some pleuritic pain/ more shallow inspiration) Cardiovascular: regular rate, rhythm, no edema Abdomen: normal bowel sounds, soft, + tenderness, + pertinent finding (PD cath L abd w/ blood in tubing) Extremities: no pedal edema, + pertinent finding (+avf t/b LUE) Neurologic/Psych: alert, normal mood/affect, oriented x 3 Skin: no jaundice, warm/dry, + pallor Diagnostics Last 24 Hours Test 04/17/17 11:06 04/17/17 15:42 04/17/17 16:54 04/17/17 20:43 White Blood Count 5.61 K/uL Red Blood Count 3.14 M/uL Hemoglobin 10.1 g/dL Hematocrit 30.2 % Mean Corpuscular Volume 96.2 fL Mean Corpuscular Hemoglobin 32.2 pg Mean Corpuscular Hemoglobin Concent 33.4 g/dl Platelet Count 125 K/uL Mean Platelet Volume 9.7 fL Neutrophils (%) (Auto) 71.4 % Lymphocytes (%) (Auto) 15.5 % Monocytes (%) (Auto) 7.0 % Eosinophils (%) (Auto) 5.3 % Basophils (%) (Auto) 0.4 % Neutrophils # (Auto) 4.01 K/uL Lymphocytes # (Auto) 0.87 K/uL Monocytes # (Auto) 0.39 K/uL Eosinophils # (Auto) 0.30 K/uL Basophils # (Auto) 0.02 K/uL RDW Standard Deviation 53.8 fL RDW Coefficient of Variation 15.5 % Immature Granulocyte % (Auto) 0.4 % Immature Granulocyte # (Auto) 0.02 K/uL Prothrombin Time 10.3 SECONDS Prothromb Time International Ratio 1.0 Activated Partial Thromboplast Time 24.5 SECONDS Partial Thromboplastin Ratio 0.9 Sodium Level 136 mmol/L Potassium Level 4.9 mmol/L Chloride Level 100 mmol/L Carbon Dioxide Level 25 mmol/L Anion Gap 11.0 mmol/L Blood Urea Nitrogen 74 mg/dl Creatinine 14.00 mg/dl Est Creatinine Clear Calc Drug Dose 6.4 ml/min Estimated GFR () 3.6 Estimated GFR (Non- 3.1 BUN/Creatinine Ratio 5.3 Random Glucose 88 mg/dl Calcium Level 8.6 mg/dl Total Bilirubin 0.5 mg/dl Direct Bilirubin 0.1 mg/dl Aspartate Amino Transf (AST/SGOT) 16 U/L Alanine Aminotransferase (ALT/SGPT) 25 U/L Alkaline Phosphatase 91 U/L Troponin I 0.023 ng/ml Total Protein 7.7 gm/dl Albumin 3.4 gm/dl Lipase 281 U/L Bedside Glucose 80 mg/dl 120 mg/dl Test 04/17/17 21:00 04/17/17 21:31 04/17/17 23:08 04/18/17 06:30 Peritoneal Fluid Color RED Peritoneal Fluid Appearance BLOODY Peritoneal Fluid WBC 251 /uL Peritoneal Fluid RBC 93990 /uL Peritoneal Fld Mononuclear WBCs (%) 38.8 % Peritoneal Fld Polynuclear WBCs (%) 61.2 % Activated Partial Thromboplast Time 79.7 SECONDS Partial Thromboplastin Ratio 3.1 Hemoglobin 8.6 g/dL Hematocrit 25.3 % Bedside Glucose 88 mg/dl Test 04/18/17 07:15 White Blood Count 5.36 K/uL Red Blood Count 2.55 M/uL Hemoglobin 7.9 g/dL Hematocrit 24.9 % Mean Corpuscular Volume 97.6 fL Mean Corpuscular Hemoglobin 31.0 pg Mean Corpuscular Hemoglobin Concent 31.7 g/dl RDW Standard Deviation 54.3 fL RDW Coefficient of Variation 15.4 % Platelet Count 106 K/uL Mean Platelet Volume 9.3 fL Activated Partial Thromboplast Time 23.8 SECONDS Partial Thromboplastin Ratio 0.9 Diagnostic Radiology: CXR > clear lungs; no fracture, effusion, PNA VQ > indeterminate for PE Doppler BLE > no DVT CT abd/pelvis non con > lung bases clear; PD cath in appropriate position; + hyperdense pelvic fluid c/w hemoperitoneum of unclear cause ? related to ruptured R ovarian cyst; has 4.3 cym R cystic ovarian lesion also w/ hyperdense fluid EKG: NSR; unchanged from prior Assessment & Plan 31 y/o F presenting with R sided abdominal pain, pleuritic R chest pain, concern for PE. Other PMH includes ESRD on peritoneal dialysis, active tobacco abuse, failed renal transplant, htn. when pD attempted evening 04/18, she had hemoperitoneum and heparin gtt stopped ESRD on PD with PD fluid studies meeting criteria for peritonitis Home PD rx at this time consists of 4 daily 2L exchanges which have for her lately been all 2.5%, though had been rx'd 1.5% was not doing d/t supply issues. Started home PD on 04/01; no issues and no hemoperitoneum per pt until attempted to drain in hospital Her PD fluid meets criteria for infection but believe this is due to hemoperitoneum; PD fluid and urine cxs are pending; will in interval treat for infection empirically pending final cxs -cycler w/ 5 X 2L exchanges all 1.5% with 500 units heparin/ L to maintain catheter patency all over 12 hrs -will give 1 gm vanco IV and ceftazidime 1 gm IV as well now >> has had cephalosporins in past w/o issue; discussed w/ pharmacy -plan to dwell ceftazidime 1 gm tomorrow by day -check vanco level in am and f/u results -will hold off on HD for now -order in to send PD fluid for cytology -f/u pending cultures Hemoperitoneum Differential here is broad and includes serious/ routine etiologies; not necessarily d/t ruptured ovarian cyst here though that is likeliest Other DDx include menses, ovulation, pancreatitis (pt w/ hx of chronic pancreatitis and lipase here <300), coagulopathy including from uremia or other cause and much less likely encapsulating peritonitis or urologic malignancy. She tells me her last menses was 2 wks ago and one before that 4 wks ago and generally irregular -I do note that her creatinine is markedly /more consistently worse since starting PD and that uremia may therefore have a role -ruptured ovarian cyst >w/ cystic R ovarian lesion > consider scleroscope tester eval for cystic ovarian lesion -from PD standpoint the therapy here is intraperitoneal heparin to prevent catheter from clotting > will put in 500 units heparin/L; and recommend if possible holding heparin -hemoperitoneum should clear with a few exchanges Possible pulmonary embolus -heparin gtt currently on hold d/t hemoperitoneum and recommend if she remains clinically stable cont to hold while ruling PE in/out as fast as possible but avoid iv contrast -dx based on imaging/hx > note no hypoxia, no tachycardia; consider ABG or pulm eval for better dx if TTE negative -strongly advocate smoking cessation Appreciate consult; will follow with you
[2017-04-18] MEDS ORDERED: [UNRECOGNIZED DRUG - OTHER] IP SCH (19:00)
[2017-04-18] MEDS ORDERED: HEPARIN SOD IP SCH (19:00)
[2017-04-18] MEDS ORDERED: CEFTAZIDIME IP SCH (19:00)
[2017-04-18 19:48] LABS: HEMATOCRIT 24.3 % (37-47)
[2017-04-18] MEDS: TRAZODONE HCL 50 MG TAB PO SCH (20:25)
[2017-04-18] MEDS: MIRTAZAPINE TAB 15 MG TAB PO SCH (20:26)
[2017-04-18 20:28] VITALS: BP 110/73; PULSE 75
[2017-04-18 21:00] VITALS: BP 125/76; PULSE 78
[2017-04-18 22:18] LABS: HEMATOCRIT 24.4 % (37-47)
[2017-04-18 23:09] VITALS: BP 130/87; PULSE 76; TEMP 36.9; O2SAT 90
[2017-04-19] VITALS (19 sets, daily range): BP systolic 106–145; BP diastolic 60–88; PULSE 70–95; TEMP 36.6–37.1; O2SAT 94–100
[2017-04-19] MEDS: ACETAMINOPHEN 325 MG TAB PO PRN ×5 (02:11→22:27)
[2017-04-19] MEDS: HYDROmorphone INJ 2 MG/ML SYR/VIAL IV PRN (03:22)
[2017-04-19] MEDS ORDERED: [UNRECOGNIZED DRUG - OTHER] IP SCH (06:30)
[2017-04-19] MEDS ORDERED: CEFTAZIDIME IP SCH (06:30)
[2017-04-19] MEDS ORDERED: HEPARIN SOD IP SCH (06:30)
[2017-04-19] MEDS: INSULIN ASPART 100 UNITS/ML 3 ML PEN SC SCH ×4 (07:00→20:28)
[2017-04-19 07:21] LABS: PARTIAL THROMBOPLASTIN RATIO 0.9
[2017-04-19 07:30] LABS: HEMATOCRIT 20.7 % (37-47); MEAN CELL VOLUME 95.4 fL (80-100); MEAN CORPUSCULAR HEMOGLOBIN 32.7 pg (25-34); MEAN CORPUSCULAR HGB CONC 34.3 g/dl (32-36); PLATELET COUNT 104 K/uL (130-400); RED BLOOD COUNT 2.17 M/uL (4.2-5.4); WHITE BLOOD COUNT 4.11 K/uL (4.8-10.8)
[2017-04-19] MEDS: CALCIUM ACETATE 667MG GELCAP PO SCH ×3 (07:30→17:18)
[2017-04-19 07:42] LABS: MAGNESIUM 1.9 mg/dl (1.8-2.4); POTASSIUM 4.4 mmol/L (3.5-5.1)
[2017-04-19 07:54] LABS: PHOSPHORUS 8.4 mg/dl (2.5-4.9)
[2017-04-19] MEDS: HYDROmorphone INJ 1 MG/ML SYR IV PRN ×3 (08:49→19:32)
[2017-04-19] MEDS: CARVEDILOL 6.25 MG TAB PO SCH ×2 (08:50→20:27)
[2017-04-19] MEDS: AMLODIPINE BESYLATE 5 MG TAB PO SCH (08:50)
[2017-04-19] MEDS: ESCITALOPRAM OXALATE 20 MG TAB PO SCH (08:50)
[2017-04-19] MEDS: FAMOTIDINE 20 MG TAB PO SCH (08:50)
[2017-04-19] MEDS: LISINOPRIL 40 MG TAB PO SCH (08:51)
[2017-04-19] MEDS: CALCITRIOL 0.25 MCG CAP PO SCH (08:51)
--- NOTE | 2017-04-19 11:42 | Nephrology Progress Note ---
Nephrology Progress Note Date of Service: Apr 19, 2017. Subjective cont to c/o 10/10 R sided abd/chest pain; PD effluent still grossly bloody; 1.5L UF overnight on PD Objective Date Time Temp Pulse Resp B/P (MAP) Pulse Ox O2 Delivery O2 Flow Rate FiO2 04/19/17 08:00 Room Air 04/19/17 07:32 36.6 76 18 118/73 (88) 94 Room Air 04/19/17 04:02 Room Air 04/19/17 03:11 37.0 79 19 119/77 (91) 99 Room Air 04/19/17 01:34 36.6 80 129/80 (96) 04/19/17 01:20 36.6 80 16 129/80 (96) 04/19/17 00:00 Room Air 04/18/17 23:09 36.9 76 20 130/87 (101) 90 Room Air 04/18/17 21:00 78 125/76 (92) 04/18/17 20:28 75 110/73 (85) 04/18/17 20:00 Room Air 04/18/17 16:00 Room Air 04/18/17 15:46 36.8 66 16 108/71 (83) 97 Room Air 04/18/17 12:00 Room Air 04/18/17 11:26 36.3 68 16 114/75 (88) 96 Room Air Physical Exam: General Appearance: WD/WN, no apparent distress (on RA, maneuvers w/o pain or effort for exam) Eyes: EOMI ENT: hearing grossly normal Neck: supple Respiratory/Chest: lungs clear, normal breath sounds, no respiratory distress Cardiovascular: regular rate, rhythm, no edema Abdomen: normal bowel sounds, soft, + tenderness, + pertinent finding (PD exit site pristine) Extremities: no pedal edema, + pertinent finding (+avf t/b LUE) Neurologic/Psych: alert, normal mood/affect, oriented x 3 Skin: no jaundice, warm/dry, + pallor Current Inpatient Medications Medications (Trade) Dose Ordered Sig/Sachin Route Start Time Stop Time Status Last Admin Dose Admin Acetaminophen (Tylenol Tab) 650 mg Q4H PRN PO 04/17/17 16:15 05/17/17 16:14 04/19/17 06:13 650 MG Ondansetron HCl (Zofran Inj) 4 mg Q6H PRN IV 04/17/17 16:15 05/17/17 16:14 04/18/17 20:51 4 MG Albuterol (Ventolin Hfa Inhaler) 2 puffs Q4H PRN INH 04/17/17 16:30 05/17/17 16:29 Calcium Acetate (Phoslo Cap) 1,334 mg UD PRN PO 04/17/17 16:30 05/17/17 16:29 Calcium Acetate (Phoslo Cap) 2,668 mg TIDM PO 04/17/17 17:53 05/17/17 17:59 Carvedilol (Coreg Tab) 6.25 mg BID PO 04/17/17 21:00 05/17/17 20:59 04/19/17 08:50 6.25 MG Escitalopram Oxalate (Lexapro Tab) 20 mg QAM PO 04/18/17 09:00 05/18/17 08:59 04/19/17 08:50 20 MG Famotidine (Pepcid Tab) 40 mg QAM PO 04/18/17 09:00 05/18/17 08:59 04/19/17 08:50 40 MG Fluticasone Propionate (Flonase Nasal [place]) 2 sprays DAILY PRN FRED 04/17/17 16:30 05/17/17 16:29 Lisinopril (Zestril Tab) 40 mg DAILY PO 04/18/17 09:00 05/18/17 08:59 04/19/17 08:51 40 MG Mirtazapine (Remeron Tab) 30 mg HS PO 04/17/17 21:00 05/17/17 20:59 04/18/17 20:26 30 MG Trazodone HCl (Desyrel Tab) 50 mg HS PO 04/17/17 21:00 05/17/17 20:59 04/18/17 20:25 50 MG Amlodipine Besylate (Norvasc Tab) 10 mg DAILY PO 04/18/17 09:00 05/18/17 08:59 04/19/17 08:50 10 MG Calcitriol (Rocaltrol Cap) 1 mcg QAM PO 04/18/17 09:00 05/18/17 08:59 04/19/17 08:51 1 MCG Insulin Aspart (novoLOG ASPART) SLIDING SCALE If C... ACHS SC 04/17/17 21:00 05/17/17 20:59 Glucose (Glucose 40% Gel) 15-30 GRAMS 15 GRAMS... UD PRN PO 04/17/17 17:15 05/17/17 17:14 Glucose (Glucose Chew Tab) 4-8 Tablets 4 Tabl... UD PRN PO 04/17/17 17:15 05/17/17 17:14 Dextrose (Dextrose 50% 50ML Syringe) 25-50ML OF 50% DW IV FOR... UD PRN IV 04/17/17 17:15 05/17/17 17:14 Glucagon (Glucagon Inj) 1 mg UD PRN SQ 04/17/17 17:15 05/17/17 17:14 Heparin Sodium/ Dextrose 500 ml @ 25 mls/hr Q20H PRN IV 04/17/17 18:00 05/17/17 17:59 Future Hold Hydromorphone HCl (Dilaudid Inj) 1 mg Q4 PRN IV 04/17/17 23:30 05/01/17 23:29 04/19/17 08:49 1 MG Hydromorphone HCl (Dilaudid Inj) 2 mg Q4 PRN IV 04/17/17 23:30 05/01/17 23:29 04/19/17 03:22 2 MG Diphenhydramine HCl (Benadryl Cap) 25 mg Q8H PRN PO 04/18/17 02:45 05/18/17 02:44 04/18/17 20:23 25 MG Ceftazidime 1000 mg/Heparin Sodium (Porcine) 1000 unit/[facility] [employer] 2,011 ml @ 0 mls/hr TODAY@0630 04/19/17 06:30 04/19/17 12:30 Last 24 Hours Test 04/18/17 11:24 04/18/17 15:55 04/18/17 19:23 04/18/17 20:42 Bedside Glucose 90 mg/dl 86 mg/dl 100 mg/dl Hemoglobin 8.2 g/dL Hematocrit 24.3 % Test 04/18/17 22:04 04/19/17 06:32 04/19/17 06:49 Hemoglobin 8.0 g/dL 7.1 g/dL Hematocrit 24.4 % 20.7 % Bedside Glucose 99 mg/dl White Blood Count 4.11 K/uL Red Blood Count 2.17 M/uL Mean Corpuscular Volume 95.4 fL Mean Corpuscular Hemoglobin 32.7 pg Mean Corpuscular Hemoglobin Concent 34.3 g/dl RDW Standard Deviation 51.3 fL RDW Coefficient of Variation 14.9 % Platelet Count 104 K/uL Mean Platelet Volume 10.0 fL Activated Partial Thromboplast Time 22.9 SECONDS Partial Thromboplastin Ratio 0.9 Sodium Level 134 mmol/L Potassium Level 4.4 mmol/L Chloride Level 100 mmol/L Carbon Dioxide Level 23 mmol/L Anion Gap 11.0 mmol/L Blood Urea Nitrogen 69 mg/dl Creatinine 14.00 mg/dl Est Creatinine Clear Calc Drug Dose 6.3 ml/min Estimated GFR () 3.6 Estimated GFR (Non- 3.1 BUN/Creatinine Ratio 5.0 Random Glucose 89 mg/dl Calcium Level 8.0 mg/dl Phosphorus Level 8.4 mg/dl Magnesium Level 1.9 mg/dl Random Vancomycin Level 17.7 mcg/ml Assessment & Plan 31 y/o F presenting with R sided abdominal pain, pleuritic R chest pain, concern for PE. Other PMH includes ESRD on peritoneal dialysis, active tobacco abuse, failed renal transplant, htn. when pD attempted evening 04/18, she had hemoperitoneum and heparin gtt stopped >>>complex situation clinically given ongoing hemoperitoneum and concern for pulmonary embolus/need for anticoagulation ESRD on PD with PD fluid studies meeting criteria for peritonitis Home PD rx at this time consists of 4 daily 2L exchanges which have for her lately been all 2.5%, though had been rx'd 1.5% was not doing d/t supply issues. Started home PD on 04/01; no issues and no hemoperitoneum per pt until attempted to drain in hospital Her PD fluid meets criteria for infection; PD fluid and urine cxs are pending; will in interval treat for infection empirically pending final cxs -continue cycler w/ now 6 X 2L exchanges (to improve clearance) all 1.5% with 500 units heparin/ L to maintain catheter patency all over 12 hrs -plan to dwell ceftazidime 1 gm again tomorrow; currently w/ 1 gm dwelling -check vanco level in am and f/u results > level ok this am; will redose 1 gm again -will hold off on HD for now -f/u PD fluid cytology -f/u pending cultures >> NGTD so far -cont daily bmp, cbc Hemoperitoneum Differential here is broad and includes serious/ routine etiologies; not necessarily d/t ruptured ovarian cyst here though that is likeliest Other DDx include menses, ovulation, pancreatitis (pt w/ hx of chronic pancreatitis and lipase here <300), coagulopathy including from uremia or other cause and much less likely encapsulating peritonitis or urologic malignancy. She tells me her last menses was 2 wks ago and one before that 4 wks ago and generally irregular -I do note that her creatinine is markedly /more consistently worse since starting PD and that uremia may therefore have a role -ruptured ovarian cyst >w/ cystic R ovarian lesion > consider machine tool designer eval for cystic ovarian lesion, unlikely an atypical finding but this pt is immunosuppressed, hemoperitoneum has not cleared, and smoking therefore higher CA risk -from PD standpoint the therapy here is intraperitoneal heparin to prevent catheter from clotting > will continue 500 units heparin/L Possible pulmonary embolus -heparin gtt currently on hold d/t hemoperitoneum > plan is to start coumadin soon >>avoid IV contrast d/t need to retain her residual renal function if at all possible -strongly advocate smoking cessation Appreciate consult; will follow with you
[2017-04-19] MEDS ORDERED: VANCOMYCIN INJ 1,000 MG in SODIUM CHLORIDE 0.9% 250ML 250 ML IV ONE (12:00)
[2017-04-19] MEDS: ONDANSETRON INJ 2 MG/ML 2 ML VIAL IV PRN (12:15)
--- NOTE | 2017-04-19 15:12 | Medical Consult ---
Consultation Date of Consultation: Apr 19, 2017. Attending Physician: Juan Victor M.D. History of Present Illness 31 W F P2002 LMP 2 weeks ago with onset of RLQ several days ago associated with decrease appetite but no nausea and vomiting. Patient is currently being seen and evaluated for bilateral PE and is on chronic peritoneal dialysis for renal failure. She is diabetic with good control. She has had 2 prior C-sections and has a tubal ligation for control. Parker is mostly RLQ but did radiate to upper quadrant on right. Uterus is normal on CT scan and 4.3 cm hyperdense ovarian cyst noted. Past Medical/Surgical History Medical Problems: (1) Acute chest pain Status: Acute (2) Acute electrocardiogram changes Status: Acute (3) Acute hyperkalemia Status: Acute (4) Altered mental status Status: Acute (5) Anemia Status: Acute (6) ARF (acute renal failure) Status: Acute (7) Arm pain, left Status: Acute (8) Arm pain, left Status: Acute (9) Back pain Status: Acute (10) Cellulitis Status: Acute (11) Cellulitis of left upper extremity Status: Acute (12) Central abdominal pain Status: Acute (13) Chest wall pain Status: Acute (14) Cholecystitis Status: Acute (15) Complications, dialysis, catheter, mechanical Status: Acute (16) Costochondritis Status: Acute (17) Dependence on renal dialysis Status: Acute (18) Dizziness Status: Acute (19) End stage renal disease Status: Acute (20) Epigastric abdominal pain Status: Acute (21) ESRD (end stage renal disease) on dialysis Status: Acute (22) Headache Status: Acute (23) Hypertension Status: Acute (24) Hypocalcemia Status: Acute (25) Hypocalcemia Permanent Comment: She has severe Critical hypocalcemia from missing Dialysis for so long. Will give 4gm ivpb now. with dialysis it should improve further. Status: Acute (26) Lower abdominal pain Status: Acute (27) Non-cardiac chest pain Status: Acute (28) Obesity Status: Acute (29) Otitis media Status: Acute (30) Pancreatitis Status: Acute (31) Peritoneal dialysis catheter in place Status: Acute (32) Precordial chest pain Status: Acute (33) Pulmonary emboli Status: Acute (34) Renal failure Status: Acute (35) Renal failure Permanent Comment: She has ESRD but is super non complaint with Dialysis. has missed dialysis for more than 2 weeks. As a result has lot of biochemical indicators of missing Dialysis--very lot Hgb, very low Calcium and very high BUn and creatinine. Because her BUN and creat is so high she is at risk for Dysequlibrium syndrome. So to avoid that will have to slow incremental dialysis. Will do 2hrs today, low qb dialysis. tomorrow will be 3 hrs and then Saturday will be 4 hrs. She is c/o Pain at the CVC site but it looks fine on exam and the Imaging. Will know further with Dialysis. I am surprised that despite such low Ca++ she still looks fine and no Symptoms. Status: Chronic (36) Renal failure Status: Acute (37) Right flank pain Status: Acute (38) Right-sided chest pain Status: Acute (39) Severe anemia Status: Acute (40) Sinusitis Status: Acute (41) Sinusitis Status: Acute (42) Substernal chest pain Status: Acute (43) Substernal chest pain Status: Acute Family History Blood clots FATHER BROTHER Crohn's disease FATHER Diabetes mellitus MOTHER Hypertension SISTER Social History Smoking Status: Current Every Day Smoker (1/2 ppd) Alcohol Use: none Drug Use: none Marital Status: in relationship Housing Status: lives with family, lives with significant other Occupation Status: employed, other Allergies Coded Allergies: Cefaclor (Verified Allergy, Intermediate, Rash, 04/17/17) Reported by PT. Amoxicillin (Verified Adverse Reaction, Mild, VOMITING, 04/17/17) Clavulanic Acid (Verified Adverse Reaction, Mild, VOMITING, 04/17/17) Current Inpatient Medications Current Inpatient Medications Medications (Trade) Dose Ordered Sig/Sachin Route Start Time Stop Time Status Last Admin Dose Admin Acetaminophen (Tylenol Tab) 650 mg Q4H PRN PO 04/17/17 16:15 05/17/17 16:14 04/19/17 12:22 650 MG Ondansetron HCl (Zofran Inj) 4 mg Q6H PRN IV 04/17/17 16:15 05/17/17 16:14 04/19/17 12:15 4 MG Albuterol (Ventolin Hfa Inhaler) 2 puffs Q4H PRN INH 04/17/17 16:30 05/17/17 16:29 Calcium Acetate (Phoslo Cap) 1,334 mg UD PRN PO 04/17/17 16:30 05/17/17 16:29 Calcium Acetate (Phoslo Cap) 2,668 mg TIDM PO 04/17/17 17:53 05/17/17 17:59 04/19/17 12:15 1,334 MG Carvedilol (Coreg Tab) 6.25 mg BID PO 04/17/17 21:00 05/17/17 20:59 04/19/17 08:50 6.25 MG Escitalopram Oxalate (Lexapro Tab) 20 mg QAM PO 04/18/17 09:00 05/18/17 08:59 04/19/17 08:50 20 MG Famotidine (Pepcid Tab) 40 mg QAM PO 04/18/17 09:00 05/18/17 08:59 04/19/17 08:50 40 MG Fluticasone Propionate (Flonase Nasal [place]) 2 sprays DAILY PRN FRED 04/17/17 16:30 05/17/17 16:29 Lisinopril (Zestril Tab) 40 mg DAILY PO 04/18/17 09:00 05/18/17 08:59 04/19/17 08:51 40 MG Mirtazapine (Remeron Tab) 30 mg HS PO 04/17/17 21:00 05/17/17 20:59 04/18/17 20:26 30 MG Trazodone HCl (Desyrel Tab) 50 mg HS PO 04/17/17 21:00 05/17/17 20:59 04/18/17 20:25 50 MG Amlodipine Besylate (Norvasc Tab) 10 mg DAILY PO 04/18/17 09:00 05/18/17 08:59 04/19/17 08:50 10 MG Calcitriol (Rocaltrol Cap) 1 mcg QAM PO 04/18/17 09:00 05/18/17 08:59 04/19/17 08:51 1 MCG Insulin Aspart (novoLOG ASPART) SLIDING SCALE If C... ACHS SC 04/17/17 21:00 05/17/17 20:59 Glucose (Glucose 40% Gel) 15-30 GRAMS 15 GRAMS... UD PRN PO 04/17/17 17:15 05/17/17 17:14 Glucose (Glucose Chew Tab) 4-8 Tablets 4 Tabl... UD PRN PO 04/17/17 17:15 05/17/17 17:14 Dextrose (Dextrose 50% 50ML Syringe) 25-50ML OF 50% DW IV FOR... UD PRN IV 04/17/17 17:15 05/17/17 17:14 Glucagon (Glucagon Inj) 1 mg UD PRN SQ 04/17/17 17:15 05/17/17 17:14 Heparin Sodium/ Dextrose 500 ml @ 25 mls/hr Q20H PRN IV 04/17/17 18:00 05/17/17 17:59 Future Hold Hydromorphone HCl (Dilaudid Inj) 1 mg Q4 PRN IV 04/17/17 23:30 05/01/17 23:29 04/19/17 14:30 1 MG Hydromorphone HCl (Dilaudid Inj) 2 mg Q4 PRN IV 04/17/17 23:30 05/01/17 23:29 04/19/17 03:22 2 MG Diphenhydramine HCl (Benadryl Cap) 25 mg Q8H PRN PO 04/18/17 02:45 05/18/17 02:44 04/18/17 20:23 25 MG Ceftazidime 1000 mg/Heparin Sodium (Porcine) 1000 unit/[facility] 2,011 ml @ 0 mls/hr TODAY@0630 IP 04/20/17 06:30 04/20/17 13:59 Review of Systems Abdomen: + vomiting, No pain, No nausea, No diarrhea, No constipation, No GI bleeding, No problem reported Physical Exam Date Time Temp Pulse Resp B/P (MAP) Pulse Ox O2 Delivery O2 Flow Rate FiO2 04/19/17 14:56 36.9 80 16 122/76 04/19/17 14:34 37.1 76 16 109/71 04/19/17 14:22 36.9 79 16 109/72 96 04/19/17 12:00 Room Air 04/19/17 11:51 37.1 79 18 124/82 (96) 96 Room Air 04/19/17 08:10 36.6 74 137/86 (103) 04/19/17 08:00 Room Air 04/19/17 07:32 36.6 76 18 118/73 (88) 94 Room Air 04/19/17 04:02 Room Air 04/19/17 03:11 37.0 79 19 119/77 (91) 99 Room Air 04/19/17 01:34 36.6 80 129/80 (96) 04/19/17 01:20 36.6 80 16 129/80 (96) 04/19/17 00:00 Room Air 04/18/17 23:09 36.9 76 20 130/87 (101) 90 Room Air 04/18/17 21:00 78 125/76 (92) 04/18/17 20:28 75 110/73 (85) 04/18/17 20:00 Room Air 04/18/17 16:00 Room Air 04/18/17 15:46 36.8 66 16 108/71 (83) 97 Room Air General Appearance: no apparent distress Abdomen/GI: non tender, soft, + tenderness Genitourinary - Female: external genitalia normal, normal pelvic exam, normal cervix, uterus normal shape and size, normal ovaries and adnexa Skin: warm/dry Laboratory Results Last 24 Hours Test 04/18/17 15:55 04/18/17 19:23 04/18/17 20:42 04/18/17 22:04 Bedside Glucose 86 mg/dl 100 mg/dl Hemoglobin 8.2 g/dL 8.0 g/dL Hematocrit 24.3 % 24.4 % Test 04/19/17 06:32 04/19/17 06:49 04/19/17 11:24 Bedside Glucose 99 mg/dl 97 mg/dl White Blood Count 4.11 K/uL Red Blood Count 2.17 M/uL Hemoglobin 7.1 g/dL Hematocrit 20.7 % Mean Corpuscular Volume 95.4 fL Mean Corpuscular Hemoglobin 32.7 pg Mean Corpuscular Hemoglobin Concent 34.3 g/dl RDW Standard Deviation 51.3 fL RDW Coefficient of Variation 14.9 % Platelet Count 104 K/uL Mean Platelet Volume 10.0 fL Activated Partial Thromboplast Time 22.9 SECONDS Partial Thromboplastin Ratio 0.9 Sodium Level 134 mmol/L Potassium Level 4.4 mmol/L Chloride Level 100 mmol/L Carbon Dioxide Level 23 mmol/L Anion Gap 11.0 mmol/L Blood Urea Nitrogen 69 mg/dl Creatinine 14.00 mg/dl Est Creatinine Clear Calc Drug Dose 6.3 ml/min Estimated GFR () 3.6 Estimated GFR (Non- 3.1 BUN/Creatinine Ratio 5.0 Random Glucose 89 mg/dl Calcium Level 8.0 mg/dl Phosphorus Level 8.4 mg/dl Magnesium Level 1.9 mg/dl Random Vancomycin Level 17.7 mcg/ml Assessment & Plan Probable ruptured hemorrhagic ovarian cyst on right side most recent PD fluid is now pinker than previously which would indicate stable ovary at this time Would recommend expectant management of pain and follow up with repeat pelvic ultrasound in 1 month Will follow as needed Thanks you
--- NOTE | 2017-04-19 18:14 | Progress Note ---
Internal Med Progress Note Date of Service: Apr 19, 2017. Provider Documentation: SUBJECTIVE: The patient was seen and examined Has had Abdominal pain last night and CT of the Abdomen and Pelvis did show ruptured ovarian Follicle Peritoneal cath draining was bloody and was stopped and restarted Abdominal pain is a little better OBJECTIVE: Vital Signs-as noted below Exam: General-No distress at rest Eyes-normal ENT-normal Neck-supple Lungs-Clear to ausucltate bilaterally Heart-Regular,no murmur appreciated Abdomen-Benign,no masses,bowel sound present Extremities-Trace edema bilaterally Neuro-AAOx3 Lab data as noted below. ASSESSMENT & PLAN: PULMONARY EMBOLI Presents with chest pain, lightheadedness D dimer elevated to 590 on prior ER visit 04/13/17, also chronically elevated in the past CTA could not be done due to ESRD VQ scan done in ER- intermediate probability, 2 small to moderate mismatched defects in bilateral lower lobes EKG shows no acute findings and ECHO as above -no RV starin Family history of VTE noted, hypercoagulable workup ordered Started on heparin drip in ER-has been on hold for now due to intraperitoneal bleeding Hb dropped and receiving 1 unit of PRBC Will restart Heparin when PD shows no more bleeding Ruptured right Hemorrhagic cyst Presented with Abdominal pain CT -suggestive of ruptured hemorrhagic right ovarian cyst Appreciate [employer] evaluation Follow UP US in 1 month ESRD ON PD Peritoneal drainage contained blood Has been on Hold for now Decided to have PD instead of HD now LIGHTHEADEDNESS Check orthostatic VS Received 500 mL bolus in ER HYPERTENSION BP is stable Continue amlodipine, carvedilol DM TYPE 2 Diet controlled Novolog sliding scale coverage Chronic Anemai Likely due to ESRD Hb Dropped will monitor DEPRESSION Continue Lexapro TOBACCO ABUSE Counselled patient about smoking cessation- states she is trying to quit FULL CODE DISPOSITION Telemetry Follows with Dr. Aldridge for primary care Vital Signs: Date Time Temp Pulse Resp B/P (MAP) Pulse Ox O2 Delivery O2 Flow Rate FiO2 04/19/17 16:00 95 Room Air 04/19/17 15:56 36.9 71 18 110/67 96 04/19/17 15:00 36.9 73 18 109/72 (84) 04/19/17 14:56 36.9 80 16 122/76 04/19/17 14:34 37.1 76 16 109/71 04/19/17 14:22 36.9 79 16 109/72 96 04/19/17 12:00 Room Air 04/19/17 11:51 37.1 79 18 124/82 (96) 96 Room Air 04/19/17 08:10 36.6 74 137/86 (103) 04/19/17 08:00 Room Air 04/19/17 07:32 36.6 76 18 118/73 (88) 94 Room Air 04/19/17 04:02 Room Air 04/19/17 03:11 37.0 79 19 119/77 (91) 99 Room Air 04/19/17 01:34 36.6 80 129/80 (96) 04/19/17 01:20 36.6 80 16 129/80 (96) 04/19/17 00:00 Room Air 04/18/17 23:09 36.9 76 20 130/87 (101) 90 Room Air 04/18/17 21:00 78 125/76 (92) 04/18/17 20:28 75 110/73 (85) 04/18/17 20:00 Room Air Lab Results: Results Past 24 Hours Test 04/18/17 19:23 04/18/17 20:42 04/18/17 22:04 04/19/17 06:32 Range/Units Hemoglobin 8.2 8.0 12.0-16.0 g/dL Hematocrit 24.3 24.4 37-47 % Bedside Glucose 100 99 70-90 mg/dl Test 04/19/17 06:49 04/19/17 11:24 04/19/17 16:24 Range/Units White Blood Count 4.11 4.8-10.8 K/uL Red Blood Count 2.17 4.2-5.4 M/uL Hemoglobin 7.1 12.0-16.0 g/dL Hematocrit 20.7 37-47 % Mean Corpuscular Volume 95.4 80-100 fL Mean Corpuscular Hemoglobin 32.7 25-34 pg Mean Corpuscular Hemoglobin Concent 34.3 32-36 g/dl RDW Standard Deviation 51.3 36.4-46.3 fL RDW Coefficient of Variation 14.9 11.5-14.5 % Platelet Count 104 130-400 K/uL Mean Platelet Volume 10.0 7.4-10.4 fL Activated Partial Thromboplast Time 22.9 21.0-31.0 SECONDS Partial Thromboplastin Ratio 0.9 Sodium Level 134 136-145 mmol/L Potassium Level 4.4 3.5-5.1 mmol/L Chloride Level 100 98-107 mmol/L Carbon Dioxide Level 23 21-32 mmol/L Anion Gap 11.0 3-11 mmol/L Blood Urea Nitrogen 69 7-18 mg/dl Creatinine 14.00 0.60-1.20 mg/dl Est Creatinine Clear Calc Drug Dose 6.3 ml/min Estimated GFR () 3.6 Estimated GFR (Non- 3.1 BUN/Creatinine Ratio 5.0 10-20 Random Glucose 89 70-99 mg/dl Calcium Level 8.0 8.5-10.1 mg/dl Phosphorus Level 8.4 2.5-4.9 mg/dl Magnesium Level 1.9 1.8-2.4 mg/dl Random Vancomycin Level 17.7 mcg/ml Bedside Glucose 97 90 70-90 mg/dl
[2017-04-19 19:59] LABS: HEMATOCRIT 23.3 % (37-47)
[2017-04-19] MEDS: MIRTAZAPINE TAB 15 MG TAB PO SCH (20:26)
[2017-04-19] MEDS: TRAZODONE HCL 50 MG TAB PO SCH (20:26)
[2017-04-20] VITALS (10 sets, daily range): BP systolic 114–142; BP diastolic 73–90; PULSE 72–84; TEMP 36.6–37.3; O2SAT 94–98
[2017-04-20] MEDS: HYDROmorphone INJ 1 MG/ML SYR IV PRN ×2 (06:16→22:29)
[2017-04-20 06:29] LABS: HEMATOCRIT 24.3 % (37-47); MEAN CELL VOLUME 90.7 fL (80-100); MEAN CORPUSCULAR HEMOGLOBIN 31.3 pg (25-34); MEAN CORPUSCULAR HGB CONC 34.6 g/dl (32-36); RED BLOOD COUNT 2.68 M/uL (4.2-5.4); WHITE BLOOD COUNT 4.04 K/uL (4.8-10.8)
[2017-04-20] MEDS ORDERED: HEPARIN SOD IP SCH (06:30)
[2017-04-20] MEDS ORDERED: CEFTAZIDIME IP SCH (06:30)
[2017-04-20] MEDS ORDERED: [UNRECOGNIZED DRUG - OTHER] IP SCH (06:30)
[2017-04-20 06:52] LABS: PARTIAL THROMBOPLASTIN RATIO 0.9
[2017-04-20] MEDS: INSULIN ASPART 100 UNITS/ML 3 ML PEN SC SCH ×4 (07:00→20:39)
[2017-04-20 07:33] LABS: PLATELET COUNT 99 K/uL (130-400); PLT ESTIMATE DECREASED
[2017-04-20] MEDS: AMLODIPINE BESYLATE 5 MG TAB PO SCH (08:05)
[2017-04-20] MEDS: CALCIUM ACETATE 667MG GELCAP PO SCH ×3 (08:05→15:47)
[2017-04-20] MEDS: FAMOTIDINE 20 MG TAB PO SCH (08:06)
[2017-04-20] MEDS: LISINOPRIL 40 MG TAB PO SCH (08:07)
[2017-04-20] MEDS: CARVEDILOL 6.25 MG TAB PO SCH ×2 (08:07→20:33)
[2017-04-20] MEDS: CALCITRIOL 0.25 MCG CAP PO SCH (08:08)
[2017-04-20] MEDS: ESCITALOPRAM OXALATE 20 MG TAB PO SCH (08:08)
[2017-04-20] MEDS: ONDANSETRON INJ 2 MG/ML 2 ML VIAL IV PRN (09:01)
[2017-04-20] MEDS: HYDROmorphone INJ 2 MG/ML SYR/VIAL IV PRN ×3 (10:34→18:23)
[2017-04-20] MEDS ORDERED: DOCUSATE SODIUM/SENNA 50/8.6MG TAB PO ONE (14:59)
[2017-04-20] MEDS ORDERED: SENNA 8.6 MG TAB PO ONE (15:05)
[2017-04-20] MEDS ORDERED: DOCUSATE SODIUM 100 MG CAP PO ONE (15:05)
--- NOTE | 2017-04-20 15:12 | Nephrology Progress Note ---
Nephrology Progress Note Date of Service: Apr 20, 2017. Subjective cont to c/o soem diffuse abd pain; no further chest pain, no sob; PD effluent pink/blood tinged; Objective Date Time Temp Pulse Resp B/P (MAP) Pulse Ox O2 Delivery O2 Flow Rate FiO2 04/20/17 11:42 Room Air 04/20/17 11:38 37.3 84 17 122/76 (91) 94 Room Air 04/20/17 11:05 04/20/17 08:55 36.8 74 18 142/88 (106) 04/20/17 08:00 Room Air 04/20/17 07:33 36.6 75 17 122/78 (93) 94 Room Air 04/20/17 04:00 Room Air 04/20/17 03:06 36.8 81 15 114/73 (87) 98 Room Air 04/20/17 00:00 Room Air 04/19/17 23:31 37.0 78 15 133/78 (96) 96 Room Air 04/19/17 20:10 36.7 70 18 145/88 (107) 100 Room Air 04/19/17 20:00 96 Room Air 04/19/17 19:25 36.9 70 134/78 (96) 04/19/17 16:00 95 Room Air 04/19/17 15:56 36.9 71 18 110/67 96 Physical Exam: General Appearance: WD/WN, no apparent distress (on RA, maneuvers w/o pain or effort for exam) Eyes: EOMI ENT: hearing grossly normal Neck: supple Respiratory/Chest: lungs clear, normal breath sounds, no respiratory distress Cardiovascular: regular rate, rhythm, no edema Abdomen: normal bowel sounds, soft, + tenderness, + pertinent finding (PD exit site pristine) Extremities: no pedal edema, + pertinent finding (+avf t/b LUE) Neurologic/Psych: alert, normal mood/affect, oriented x 3 Skin: no jaundice, warm/dry, + pallor Current Inpatient Medications Medications (Trade) Dose Ordered Sig/Sachin Route Start Time Stop Time Status Last Admin Dose Admin Acetaminophen (Tylenol Tab) 650 mg Q4H PRN PO 04/17/17 16:15 05/17/17 16:14 04/19/17 22:27 650 MG Ondansetron HCl (Zofran Inj) 4 mg Q6H PRN IV 04/17/17 16:15 05/17/17 16:14 04/20/17 09:01 4 MG Albuterol (Ventolin Hfa Inhaler) 2 puffs Q4H PRN INH 04/17/17 16:30 05/17/17 16:29 Calcium Acetate (Phoslo Cap) 1,334 mg UD PRN PO 04/17/17 16:30 05/17/17 16:29 04/19/17 20:26 1,334 MG Calcium Acetate (Phoslo Cap) 2,668 mg TIDM PO 04/17/17 17:53 05/17/17 17:59 04/20/17 12:05 2,668 MG Carvedilol (Coreg Tab) 6.25 mg BID PO 04/17/17 21:00 05/17/17 20:59 04/20/17 08:07 6.25 MG Escitalopram Oxalate (Lexapro Tab) 20 mg QAM PO 04/18/17 09:00 05/18/17 08:59 04/20/17 08:08 20 MG Famotidine (Pepcid Tab) 40 mg QAM PO 04/18/17 09:00 05/18/17 08:59 04/20/17 08:06 40 MG Fluticasone Propionate (Flonase Nasal [place]) 2 sprays DAILY PRN FRED 04/17/17 16:30 05/17/17 16:29 Lisinopril (Zestril Tab) 40 mg DAILY PO 04/18/17 09:00 05/18/17 08:59 04/20/17 08:07 40 MG Mirtazapine (Remeron Tab) 30 mg HS PO 04/17/17 21:00 05/17/17 20:59 04/19/17 20:26 30 MG Trazodone HCl (Desyrel Tab) 50 mg HS PO 04/17/17 21:00 05/17/17 20:59 04/19/17 20:26 50 MG Amlodipine Besylate (Norvasc Tab) 10 mg DAILY PO 04/18/17 09:00 05/18/17 08:59 04/20/17 08:05 10 MG Calcitriol (Rocaltrol Cap) 1 mcg QAM PO 04/18/17 09:00 05/18/17 08:59 04/20/17 08:08 1 MCG Insulin Aspart (novoLOG ASPART) SLIDING SCALE If C... ACHS SC 04/17/17 21:00 05/17/17 20:59 04/20/17 12:11 5 UNITS Glucose (Glucose 40% Gel) 15-30 GRAMS 15 GRAMS... UD PRN PO 04/17/17 17:15 05/17/17 17:14 Glucose (Glucose Chew Tab) 4-8 Tablets 4 Tabl... UD PRN PO 04/17/17 17:15 05/17/17 17:14 Dextrose (Dextrose 50% 50ML Syringe) 25-50ML OF 50% DW IV FOR... UD PRN IV 04/17/17 17:15 05/17/17 17:14 Glucagon (Glucagon Inj) 1 mg UD PRN SQ 04/17/17 17:15 05/17/17 17:14 Heparin Sodium/ Dextrose 500 ml @ 25 mls/hr Q20H PRN IV 04/17/17 18:00 05/17/17 17:59 Future Hold Hydromorphone HCl (Dilaudid Inj) 1 mg Q4 PRN IV 04/17/17 23:30 05/01/17 23:29 04/20/17 06:16 1 MG Hydromorphone HCl (Dilaudid Inj) 2 mg Q4 PRN IV 04/17/17 23:30 05/01/17 23:29 04/20/17 14:31 2 MG Diphenhydramine HCl (Benadryl Cap) 25 mg Q8H PRN PO 04/18/17 02:45 05/18/17 02:44 04/19/17 20:25 25 MG Last 24 Hours Test 04/19/17 16:24 04/19/17 19:44 04/19/17 19:57 04/20/17 06:12 Bedside Glucose 90 mg/dl 107 mg/dl Hemoglobin 8.0 g/dL 8.4 g/dL Hematocrit 23.3 % 24.3 % White Blood Count 4.04 K/uL Red Blood Count 2.68 M/uL Mean Corpuscular Volume 90.7 fL Mean Corpuscular Hemoglobin 31.3 pg Mean Corpuscular Hemoglobin Concent 34.6 g/dl RDW Standard Deviation 54.2 fL RDW Coefficient of Variation 16.3 % Platelet Count 99 K/uL Mean Platelet Volume 9.0 fL Platelet Estimate DECREASED Activated Partial Thromboplast Time 23.1 SECONDS Partial Thromboplastin Ratio 0.9 Test 04/20/17 06:20 04/20/17 11:12 Bedside Glucose 91 mg/dl 114 mg/dl Assessment & Plan 31 y/o F presenting with R sided abdominal pain, pleuritic R chest pain, concern for PE. Other PMH includes ESRD on peritoneal dialysis, active tobacco abuse, failed renal transplant, htn. when pD attempted evening 04/18, she had hemoperitoneum and heparin gtt stopped >>>complex situation clinically given ongoing hemoperitoneum and concern for pulmonary embolus/need for anticoagulation ESRD on PD with cx negative PD peritonitis Home PD rx at this time consists of 4 daily 2L exchanges which have for her lately been all 2.5%, though had been rx'd 1.5% was not doing d/t supply issues. Started home PD on 04/01; no issues and no hemoperitoneum per pt until attempted to drain in hospital Her PD fluid meets criteria for infection; PD fluid and urine cxs are pending; will in interval treat for infection empirically pending final cxs -continue cycler w/ now 6 X 2L exchanges (to improve clearance) alternate 2.5% today adn 1.5% with 500 units heparin/ L to maintain catheter patency all over 12 hrs -plan to dwell ceftazidime 1 gm again tomorrow; currently w/ 1 gm dwelling -look to dose vanco IP on 04/22 likely -will hold off on HD for now -f/u PD fluid cytology -f/u pending cultures >> NGTD so far -cont daily bmp, cbc Hemoperitoneum Differential here is broad and includes serious/ routine etiologies; not necessarily d/t ruptured ovarian cyst here though that is likeliest Other DDx include menses, ovulation, pancreatitis (pt w/ hx of chronic pancreatitis and lipase here <300), coagulopathy including from uremia or other cause and much less likely encapsulating peritonitis or urologic malignancy. 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 care coordinated w/ dr steel
[2017-04-20] MEDS ORDERED: LACTULOSE SYRUP 30 GM/45 ML UDP PO PRN (15:15)
[2017-04-20] MEDS ORDERED: BISACODYL 5 MG TABEC PO PRN (15:15)
[2017-04-20] MEDS ORDERED: BISACODYL 5 MG TABEC PO ONE (15:15)
[2017-04-20] MEDS: LACTULOSE SYRUP 30 GM/45 ML UDP PO SCH ×2 (15:54→18:23)
[2017-04-20] MEDS ORDERED: WARFARIN SOD 5 MG TAB PO ONE (15:59)
--- NOTE | 2017-04-20 16:06 | Progress Note ---
Internal Med Progress Note Date of Service: Apr 20, 2017. Provider Documentation: SUBJECTIVE: The patient was seen and examined Has had Abdominal pain last night and CT of the Abdomen and Pelvis did show ruptured ovarian Follicle Peritoneal cath draining was bloody and was stopped and restarted-decreasing bloody drainage Abdominal pain is a little better No other symptoms OBJECTIVE: Vital Signs-as noted below Exam: General-No distress at rest Eyes-normal ENT-normal Neck-supple Lungs-Clear to ausucltate bilaterally Heart-Regular,no murmur appreciated Abdomen-Benign,no masses,bowel sound present Extremities-Trace edema bilaterally Neuro-AAOx3 Lab data as noted below. ASSESSMENT & PLAN: PULMONARY EMBOLISM Presents with chest pain, lightheadedness D dimer elevated to 590 on prior ER visit 04/13/17, also chronically elevated in the past CTA could not be done due to ESRD VQ scan done in ER- intermediate probability, 2 small to moderate mismatched defects in bilateral lower lobes EKG shows no acute findings and ECHO as above -no RV starin Family history of VTE noted, hypercoagulable workup ordered Started on heparin drip in ER-has been on hold for now due to intraperitoneal bleeding Hb dropped and receiving 1 unit of PRBC Will restart Heparin when PD shows no more bleeding Discusse with the Nephrology Plan to start Coumadin from today and not to restart Heparin Ruptured right Hemorrhagic cyst Presented with Abdominal pain CT -suggestive of ruptured hemorrhagic right ovarian cyst Appreciate [employer] evaluation Follow UP US in 1 month No other issue ESRD ON PD Peritoneal drainage contained blood Has been on Hold for now Decided to have PD instead of HD now Continuing PD for now LIGHTHEADEDNESS Check orthostatic VS Received 500 mL bolus in ER HYPERTENSION BP is stable Continue amlodipine, carvedilol DM TYPE 2 Diet controlled Novolog sliding scale coverage Chronic Anemia Likely due to ESRD Hb Dropped and receive d 1 unit of PRBC yesterday HB >8.0 today 04/20/17 DEPRESSION Continue Lexapro TOBACCO ABUSE Counselled patient about smoking cessation- states she is trying to quit FULL CODE DISPOSITION Telemetry Follows with Dr. Aldridge for primary care Vital Signs: Date Time Temp Pulse Resp B/P (MAP) Pulse Ox O2 Delivery O2 Flow Rate FiO2 04/20/17 15:32 Room Air 04/20/17 11:42 Room Air 04/20/17 11:38 37.3 84 17 122/76 (91) 94 Room Air 04/20/17 11:05 04/20/17 08:55 36.8 74 18 142/88 (106) 04/20/17 08:00 Room Air 04/20/17 07:33 36.6 75 17 122/78 (93) 94 Room Air 04/20/17 04:00 Room Air 04/20/17 03:06 36.8 81 15 114/73 (87) 98 Room Air 04/20/17 00:00 Room Air 04/19/17 23:31 37.0 78 15 133/78 (96) 96 Room Air 04/19/17 20:10 36.7 70 18 145/88 (107) 100 Room Air 04/19/17 20:00 96 Room Air 04/19/17 19:25 36.9 70 134/78 (96) Lab Results: Results Past 24 Hours Test 04/19/17 16:24 04/19/17 19:44 04/19/17 19:57 04/20/17 06:12 Range/Units Bedside Glucose 90 107 70-90 mg/dl Hemoglobin 8.0 8.4 12.0-16.0 g/dL Hematocrit 23.3 24.3 37-47 % White Blood Count 4.04 4.8-10.8 K/uL Red Blood Count 2.68 4.2-5.4 M/uL Mean Corpuscular Volume 90.7 80-100 fL Mean Corpuscular Hemoglobin 31.3 25-34 pg Mean Corpuscular Hemoglobin Concent 34.6 32-36 g/dl RDW Standard Deviation 54.2 36.4-46.3 fL RDW Coefficient of Variation 16.3 11.5-14.5 % Platelet Count 99 130-400 K/uL Mean Platelet Volume 9.0 7.4-10.4 fL Platelet Estimate DECREASED Activated Partial Thromboplast Time 23.1 21.0-31.0 SECONDS Partial Thromboplastin Ratio 0.9 Test 04/20/17 06:20 04/20/17 11:12 Range/Units Bedside Glucose 91 114 70-90 mg/dl
[2017-04-20] MEDS: WARFARIN SOD 5 MG TAB PO SCH (17:08)
[2017-04-20 19:15] LABS: HEMATOCRIT 27.1 % (37-47)
[2017-04-20] MEDS: ACETAMINOPHEN 325 MG TAB PO PRN (20:31)
[2017-04-20] MEDS: TRAZODONE HCL 50 MG TAB PO SCH (20:33)
[2017-04-20] MEDS: MIRTAZAPINE TAB 15 MG TAB PO SCH (20:33)
[2017-04-20] MEDS: DOCUSATE SODIUM 100 MG CAP PO SCH (20:34)
[2017-04-21] VITALS (11 sets, daily range): BP systolic 114–146; BP diastolic 73–90; PULSE 53–80; TEMP 36.7–37; O2SAT 91–100
[2017-04-21] MEDS: LACTULOSE SYRUP 30 GM/45 ML UDP PO SCH (00:11)
[2017-04-21] MEDS: ONDANSETRON INJ 2 MG/ML 2 ML VIAL IV PRN ×3 (01:52→18:39)
[2017-04-21] MEDS: HYDROmorphone INJ 1 MG/ML SYR IV PRN ×6 (02:43→23:27)
[2017-04-21] MEDS ORDERED: CEFTAZIDIME IP SCH (06:30)
[2017-04-21] MEDS ORDERED: HEPARIN SOD IP SCH (06:30)
[2017-04-21] MEDS ORDERED: [UNRECOGNIZED DRUG - OTHER] IP SCH (06:30)
[2017-04-21] MEDS: INSULIN ASPART 100 UNITS/ML 3 ML PEN SC SCH ×4 (07:00→21:00)
[2017-04-21 07:07] LABS: BUN/CREATININE RATIO 3.8 (10-20); CALCIUM 9.4 mg/dl (8.5-10.1); POTASSIUM 4.2 mmol/L (3.5-5.1)
[2017-04-21] MEDS: FAMOTIDINE 20 MG TAB PO SCH (07:25)
[2017-04-21] MEDS: LISINOPRIL 40 MG TAB PO SCH (07:25)
[2017-04-21] MEDS: CALCIUM ACETATE 667MG GELCAP PO SCH ×3 (07:26→16:06)
[2017-04-21] MEDS: AMLODIPINE BESYLATE 5 MG TAB PO SCH (07:27)
[2017-04-21] MEDS: ESCITALOPRAM OXALATE 20 MG TAB PO SCH (07:27)
[2017-04-21] MEDS: CARVEDILOL 6.25 MG TAB PO SCH ×2 (07:27→21:39)
[2017-04-21] MEDS: CALCITRIOL 0.25 MCG CAP PO SCH (07:28)
[2017-04-21] MEDS: DOCUSATE SODIUM/SENNA 50/8.6MG TAB PO SCH (07:28)
[2017-04-21] MEDS: SENNA 8.6 MG TAB PO SCH (07:29)
[2017-04-21] MEDS: DOCUSATE SODIUM 100 MG CAP PO SCH ×2 (07:30→21:38)
[2017-04-21 10:43] LABS: HEPATITIS B AB NEG
--- NOTE | 2017-04-21 13:12 | Progress Note ---
Internal Med Progress Note Date of Service: Apr 21, 2017. Provider Documentation: SUBJECTIVE: The patient was seen and examined Has had Abdominal pain last night and CT of the Abdomen and Pelvis did show ruptured ovarian Follicle Peritoneal cath draining was bloody and was stopped and restarted-decreasing bloody drainage Abdominal pain is a much better No other symptoms and PD catheter drainage is cleared OBJECTIVE: Vital Signs-as noted below Exam: General-No distress at rest Eyes-normal ENT-normal Neck-supple Lungs-Clear to ausucltate bilaterally Heart-Regular,no murmur appreciated Abdomen-Benign,no masses,bowel sound present Extremities-Trace edema bilaterally Neuro-AAOx3 Lab data as noted below. ASSESSMENT & PLAN: PULMONARY EMBOLISM Presents with chest pain, lightheadedness D dimer elevated to 590 on prior ER visit 04/13/17, also chronically elevated in the past CTA could not be done due to ESRD VQ scan done in ER- intermediate probability, 2 small to moderate mismatched defects in bilateral lower lobes EKG shows no acute findings and ECHO as above -no RV strain Family history of VTE noted, hypercoagulable workup ordered Started on heparin drip in ER-has been on hold for now due to intraperitoneal bleeding Hb dropped and receiving 1 unit of PRBC Will restart Heparin when PD shows no more bleeding-Plan changed :will not restart Heparin Discussed with the Nephrology Started on Coumadin on 04/20/17 Will not start any Heparin due to peritoneal bleed Ruptured right Hemorrhagic cyst Presented with Abdominal pain CT -suggestive of ruptured hemorrhagic right ovarian cyst Appreciate BRAIDER SETTER evaluation Follow UP US in 1 month No other issue ESRD ON PD and possible Peritonitis Peritoneal drainage contained blood Has been on Hold for now Decided to have PD instead of HD now Continuing PD for now and the PD catheter drainage is clearing up Will need IP vanco and IP ceftazidime to instill at home after d/c to complete at least 2 wks therapy LIGHTHEADEDNESS Check orthostatic VS Received 500 mL bolus in ER No more IVF HYPERTENSION BP is stable Continue amlodipine, carvedilol DM TYPE 2 Diet controlled Novolog sliding scale coverage Chronic Anemia Likely due to ESRD Hb Dropped and receive d 1 unit of PRBC yesterday HB >8.0 today 04/20/17 Received 1 unit yesterday and HB>9 today DEPRESSION Continue Lexapro TOBACCO ABUSE Counselled patient about smoking cessation- states she is trying to quit FULL CODE DISPOSITION Telemetry Follows with Dr. Aldridge for primary care Vital Signs: Date Time Temp Pulse Resp B/P (MAP) Pulse Ox O2 Delivery O2 Flow Rate FiO2 04/21/17 15:33 Room Air 04/21/17 11:50 36.8 73 18 146/90 (108) 100 Room Air 04/21/17 11:32 Room Air 04/21/17 09:06 36.8 74 18 129/89 (102) 04/21/17 09:05 36.8 129/89 (102) 04/21/17 08:00 Room Air 04/21/17 07:14 36.8 53 18 133/82 (99) 91 Room Air 04/21/17 04:00 Room Air 04/21/17 03:40 37.0 75 18 125/81 (96) 100 Room Air 04/21/17 00:00 96 Room Air 04/20/17 23:55 37.0 73 18 122/77 (92) 96 Room Air 04/20/17 20:11 36.9 127/82 (97) 04/20/17 20:00 97 Room Air 04/20/17 19:55 36.9 74 18 127/82 (97) 04/20/17 19:42 36.7 79 18 132/90 (104) 97 Room Air 04/20/17 16:06 36.9 72 18 138/77 (97) 97 Room Air Lab Results: Results Past 24 Hours Test 04/20/17 16:37 04/20/17 19:02 04/20/17 20:37 04/21/17 06:02 Range/Units Bedside Glucose 104 99 70-90 mg/dl Hemoglobin 9.4 12.0-16.0 g/dL Hematocrit 27.1 37-47 % Sodium Level 137 136-145 mmol/L Potassium Level 4.2 3.5-5.1 mmol/L Chloride Level 100 98-107 mmol/L Carbon Dioxide Level 24 21-32 mmol/L Anion Gap 13.0 3-11 mmol/L Blood Urea Nitrogen 56 7-18 mg/dl Creatinine 15.00 0.60-1.20 mg/dl Est Creatinine Clear Calc Drug Dose 6.1 ml/min Estimated GFR () 3.3 Estimated GFR (Non- 2.8 BUN/Creatinine Ratio 3.8 10-20 Random Glucose 99 70-99 mg/dl Calcium Level 9.4 8.5-10.1 mg/dl Hepatitis B Surface Antigen NEG NEG Hepatitis B Surface Antibody NEG Test 04/21/17 06:59 04/21/17 10:16 04/21/17 11:14 Range/Units Bedside Glucose 106 99 70-90 mg/dl Random Vancomycin Level 27.1 mcg/ml
--- NOTE | 2017-04-21 13:47 | Nephrology Progress Note ---
Nephrology Progress Note Date of Service: Apr 21, 2017. Subjective cont to c/o some R abd pain; no further chest pain, no sob; PD effluent nearly clear; + BM; pleuritic pain better Objective Date Time Temp Pulse Resp B/P (MAP) Pulse Ox O2 Delivery O2 Flow Rate FiO2 04/21/17 11:50 36.8 73 18 146/90 (108) 100 Room Air 04/21/17 11:32 Room Air 04/21/17 09:06 36.8 74 18 129/89 (102) 04/21/17 09:05 36.8 129/89 (102) 04/21/17 08:00 Room Air 04/21/17 07:14 36.8 53 18 133/82 (99) 91 Room Air 04/21/17 04:00 Room Air 04/21/17 03:40 37.0 75 18 125/81 (96) 100 Room Air 04/21/17 00:00 96 Room Air 04/20/17 23:55 37.0 73 18 122/77 (92) 96 Room Air 04/20/17 20:11 36.9 127/82 (97) 04/20/17 20:00 97 Room Air 04/20/17 19:55 36.9 74 18 127/82 (97) 04/20/17 19:42 36.7 79 18 132/90 (104) 97 Room Air 04/20/17 16:06 36.9 72 18 138/77 (97) 97 Room Air 04/20/17 15:32 Room Air Physical Exam: General Appearance: WD/WN, no apparent distress (on RA, maneuvers w/o pain or effort for exam) Eyes: EOMI ENT: hearing grossly normal Neck: supple Respiratory/Chest: lungs clear, normal breath sounds, no respiratory distress Cardiovascular: regular rate, rhythm, no edema Abdomen: normal bowel sounds, soft, + tenderness RLQ, + pertinent finding (PD exit site pristine) Extremities: no pedal edema, + pertinent finding (+avf t/b LUE) Neurologic/Psych: alert, normal mood/affect, oriented x 3 Skin: no jaundice, warm/dry, + pallor Current Inpatient Medications Medications (Trade) Dose Ordered Sig/Sachin Route Start Time Stop Time Status Last Admin Dose Admin Acetaminophen (Tylenol Tab) 650 mg Q4H PRN PO 04/17/17 16:15 05/17/17 16:14 04/20/17 20:31 650 MG Ondansetron HCl (Zofran Inj) 4 mg Q6H PRN IV 04/17/17 16:15 05/17/17 16:14 04/21/17 12:07 4 MG Albuterol (Ventolin Hfa Inhaler) 2 puffs Q4H PRN INH 04/17/17 16:30 05/17/17 16:29 Calcium Acetate (Phoslo Cap) 1,334 mg UD PRN PO 04/17/17 16:30 05/17/17 16:29 04/19/17 20:26 1,334 MG Calcium Acetate (Phoslo Cap) 2,668 mg TIDM PO 04/17/17 17:53 05/17/17 17:59 04/21/17 12:03 2,668 MG Carvedilol (Coreg Tab) 6.25 mg BID PO 04/17/17 21:00 05/17/17 20:59 04/21/17 07:27 6.25 MG Escitalopram Oxalate (Lexapro Tab) 20 mg QAM PO 04/18/17 09:00 05/18/17 08:59 04/21/17 07:27 20 MG Famotidine (Pepcid Tab) 40 mg QAM PO 04/18/17 09:00 05/18/17 08:59 04/21/17 07:25 40 MG Fluticasone Propionate (Flonase Nasal [place]) 2 sprays DAILY PRN FRED 04/17/17 16:30 05/17/17 16:29 Lisinopril (Zestril Tab) 40 mg DAILY PO 04/18/17 09:00 05/18/17 08:59 04/21/17 07:25 40 MG Mirtazapine (Remeron Tab) 30 mg HS PO 04/17/17 21:00 05/17/17 20:59 04/20/17 20:33 30 MG Trazodone HCl (Desyrel Tab) 50 mg HS PO 04/17/17 21:00 05/17/17 20:59 04/20/17 20:33 50 MG Amlodipine Besylate (Norvasc Tab) 10 mg DAILY PO 04/18/17 09:00 05/18/17 08:59 04/21/17 07:27 10 MG Calcitriol (Rocaltrol Cap) 1 mcg QAM PO 04/18/17 09:00 05/18/17 08:59 04/21/17 07:28 1 MCG Insulin Aspart (novoLOG ASPART) SLIDING SCALE If C... ACHS SC 04/17/17 21:00 05/17/17 20:59 04/20/17 12:11 5 UNITS Glucose (Glucose 40% Gel) 15-30 GRAMS 15 GRAMS... UD PRN PO 04/17/17 17:15 05/17/17 17:14 Glucose (Glucose Chew Tab) 4-8 Tablets 4 Tabl... UD PRN PO 04/17/17 17:15 05/17/17 17:14 Dextrose (Dextrose 50% 50ML Syringe) 25-50ML OF 50% DW IV FOR... UD PRN IV 04/17/17 17:15 05/17/17 17:14 Glucagon (Glucagon Inj) 1 mg UD PRN SQ 04/17/17 17:15 05/17/17 17:14 Heparin Sodium/ Dextrose 500 ml @ 25 mls/hr Q20H PRN IV 04/17/17 18:00 05/17/17 17:59 Future Hold Hydromorphone HCl (Dilaudid Inj) 1 mg Q4 PRN IV 04/17/17 23:30 05/01/17 23:29 04/21/17 10:29 1 MG Hydromorphone HCl (Dilaudid Inj) 2 mg Q4 PRN IV 04/17/17 23:30 05/01/17 23:29 04/20/17 18:23 2 MG Diphenhydramine HCl (Benadryl Cap) 25 mg Q8H PRN PO 04/18/17 02:45 05/18/17 02:44 04/20/17 15:45 25 MG Senna/Docusate Sodium (Senokot S Tab) 1 tab QAM PO 04/21/17 09:00 05/21/17 08:59 04/21/17 07:28 1 TAB Senna (Senokot Tab) 17.2 mg QAM PO 04/21/17 09:00 05/21/17 08:59 04/21/17 07:29 17.2 MG Docusate Sodium (coLACE CAP) 100 mg BID PO 04/20/17 21:00 05/20/17 20:59 04/21/17 07:30 100 MG Bisacodyl (Dulcolax Tab) 5 mg DAILY PRN PO 04/20/17 15:15 05/20/17 15:14 Lactulose (Chronulac Syrup) 30 gm BID PRN PO 04/20/17 15:15 05/20/17 15:14 Warfarin Sodium (Coumadin Tab) 5 mg DAILY@16 PO 04/20/17 16:00 05/20/17 15:59 04/20/17 17:08 5 MG Ceftazidime 1000 mg/Heparin Sodium (Porcine) 1000 unit/Peritoneal [facility] [employer] 2,011 ml @ 0 mls/hr TODAY@0630 IP 04/21/17 06:30 04/21/17 13:59 04/21/17 08:44 2,000 MLS/HR Last 24 Hours Test 04/20/17 16:37 04/20/17 19:02 04/20/17 20:37 04/21/17 06:02 Bedside Glucose 104 mg/dl 99 mg/dl Hemoglobin 9.4 g/dL Hematocrit 27.1 % Sodium Level 137 mmol/L Potassium Level 4.2 mmol/L Chloride Level 100 mmol/L Carbon Dioxide Level 24 mmol/L Anion Gap 13.0 mmol/L Blood Urea Nitrogen 56 mg/dl Creatinine 15.00 mg/dl Est Creatinine Clear Calc Drug Dose 6.1 ml/min Estimated GFR () 3.3 Estimated GFR (Non- 2.8 BUN/Creatinine Ratio 3.8 Random Glucose 99 mg/dl Calcium Level 9.4 mg/dl Hepatitis B Surface Antigen NEG Hepatitis B Surface Antibody NEG Test 04/21/17 06:59 04/21/17 10:16 04/21/17 11:14 Bedside Glucose 106 mg/dl 99 mg/dl Random Vancomycin Level 27.1 mcg/ml Assessment & Plan 31 y/o F presenting with R sided abdominal pain, pleuritic R chest pain, concern for PE. Other PMH includes ESRD on peritoneal dialysis, active tobacco abuse, failed renal transplant, htn. when pD attempted evening 04/18, she had hemoperitoneum and heparin gtt stopped >>>complex situation clinically given ongoing hemoperitoneum and concern for pulmonary embolus/need for anticoagulation ESRD on PD with cx negative PD peritonitis Home PD rx at this time consists of 4 daily 2L exchanges which have for her lately been all 2.5%, though had been rx'd 1.5% was not doing d/t supply issues. Started home PD on 04/01; no issues and no hemoperitoneum per pt until attempted to drain in hospital Her PD fluid meets criteria for infection; PD fluid and urine cxs are negative; plan at least 2 wks tx for cx negative peritonitis; cytology PD fluid negative -continue cycler w/ now 6 X 2L exchanges (to improve clearance) alternate 2.5% today adn 1.5% with 500 units heparin/ L to maintain catheter patency all over 12 hrs -plan to dwell ceftazidime 1 gm again tomorrow; currently w/ 1 gm dwelling -look to dose vanco IP on 04/22 likely >> level today 27 -will hold off on HD for now -cont daily bmp, cbc -ensure bm daily > better now >>will need IP vanco and IP ceftazidime to instill at home after d/c to complete at least 2 wks therapy -2.1L uf yesterday -repeat fluid studies on 04/23 or so .. some concerns w/ ongoing abd pain despite therapy Hemoperitoneum Differential here is broad and includes serious/ routine etiologies; not necessarily d/t ruptured ovarian cyst here though that is likeliest Other DDx include menses, ovulation, pancreatitis (pt w/ hx of chronic pancreatitis and lipase here <300), coagulopathy including from uremia or other cause and much less likely encapsulating peritonitis or urologic malignancy. She tells me her last menses was 2 wks ago and one before that 4 wks ago and generally irregular -fitter helper recommends f/u pelvic u/s one month post d/c but favors ruptured ovarian cyst; cytology negative -from PD standpoint the therapy cont intraperitoneal heparin to prevent catheter from clotting Presumed pulmonary embolus -defer to primary service whether to bridge w/ heparin gtt > started coumadin yesterday >>avoid IV contrast d/t need to retain her residual renal function if at all possible -strongly advocate smoking cessation Appreciate consult; will follow with you. care coordinated w/ dr knight
[2017-04-21] MEDS: WARFARIN SOD 5 MG TAB PO SCH (16:58)
[2017-04-21] MEDS: MIRTAZAPINE TAB 15 MG TAB PO SCH (21:39)
[2017-04-21] MEDS: TRAZODONE HCL 50 MG TAB PO SCH (21:39)
[2017-04-22] VITALS (12 sets, daily range): BP systolic 96–118; BP diastolic 62–78; PULSE 68–78; TEMP 36.5–36.8; O2SAT 93–100
[2017-04-22] MEDS ORDERED: HEPARIN SOD IP SCH (06:30)
[2017-04-22] MEDS ORDERED: [UNRECOGNIZED DRUG - OTHER] IP SCH (06:30)
[2017-04-22] MEDS ORDERED: CEFTAZIDIME IP SCH (06:30)
[2017-04-22 07:20] LABS: MEAN CELL VOLUME 91.8 fL (80-100); MEAN CORPUSCULAR HEMOGLOBIN 31.3 pg (25-34); MEAN CORPUSCULAR HGB CONC 34.1 g/dl (32-36); MEAN PLATELET VOLUME 10.3 fL (7.4-10.4); PLATELET COUNT 120 K/uL (130-400); RED BLOOD COUNT 2.94 M/uL (4.2-5.4); WHITE BLOOD COUNT 4.46 K/uL (4.8-10.8)
[2017-04-22] MEDS: HYDROmorphone INJ 1 MG/ML SYR IV PRN (08:44)
[2017-04-22] MEDS: DOCUSATE SODIUM 100 MG CAP PO SCH ×2 (08:44→21:09)
[2017-04-22] MEDS: ESCITALOPRAM OXALATE 20 MG TAB PO SCH (08:44)
[2017-04-22] MEDS: AMLODIPINE BESYLATE 5 MG TAB PO SCH (08:45)
[2017-04-22] MEDS: SENNA 8.6 MG TAB PO SCH (08:45)
[2017-04-22] MEDS: DOCUSATE SODIUM/SENNA 50/8.6MG TAB PO SCH (08:45)
[2017-04-22] MEDS: CALCITRIOL 0.25 MCG CAP PO SCH (08:45)
[2017-04-22] MEDS: CALCIUM ACETATE 667MG GELCAP PO SCH ×3 (08:46→17:03)
[2017-04-22] MEDS: FAMOTIDINE 20 MG TAB PO SCH (08:47)
[2017-04-22] MEDS: LISINOPRIL 40 MG TAB PO SCH (08:47)
[2017-04-22] MEDS: CARVEDILOL 6.25 MG TAB PO SCH ×2 (08:47→21:09)
[2017-04-22] MEDS: INSULIN ASPART 100 UNITS/ML 3 ML PEN SC SCH ×4 (08:48→20:39)
[2017-04-22 12:33] LABS: INR 1.4 (0.9-1.1); PROTHROMBIN TIME (PATIENT) 14.8 SECONDS (9.0-12.0)
[2017-04-22] MEDS: HYDROmorphone INJ 2 MG/ML SYR/VIAL IV PRN ×3 (13:15→21:10)
[2017-04-22 14:17] LABS: PERIT FL WBC 10 /uL (0-300); PERITONEAL FLUID RBC < 3000 /uL
--- NOTE | 2017-04-22 16:16 | Progress Note ---
Internal Med Progress Note Date of Service: Apr 22, 2017. Provider Documentation: SUBJECTIVE: The patient was seen and examined Has had Abdominal pain last night and CT of the Abdomen and Pelvis did show ruptured ovarian Follicle Peritoneal cath draining was bloody and was stopped and restarted-decreasing bloody drainage No other symptoms and PD catheter drainage is cleared Clinically stable and abdominal pain is controlled OBJECTIVE: Vital Signs-as noted below Exam: General-No distress at rest Eyes-normal ENT-normal Neck-supple Lungs-Clear to ausucltate bilaterally Heart-Regular,no murmur appreciated Abdomen-Benign,no masses,bowel sound present Extremities-Trace edema bilaterally Neuro-AAOx3 Lab data as noted below. ASSESSMENT & PLAN: PULMONARY EMBOLISM Presents with chest pain, lightheadedness D dimer elevated to 590 on prior ER visit 04/13/17, also chronically elevated in the past CTA could not be done due to ESRD VQ scan done in ER- intermediate probability, 2 small to moderate mismatched defects in bilateral lower lobes EKG shows no acute findings and ECHO as above -no RV strain Family history of VTE noted, hypercoagulable workup ordered Started on heparin drip in ER-has been on hold for now due to intraperitoneal bleeding Hb dropped and receiving 1 unit of PRBC Will restart Heparin when PD shows no more bleeding-Plan changed :will not restart Heparin Discussed with the Nephrology Started on Coumadin on 04/20/17 Will not start any Heparin due to potential increase in peritoneal bleeding Remains stable Likely discharge tomorrow.INR 1.4 on 04/22/17 Ruptured right Hemorrhagic cyst Presented with Abdominal pain CT -suggestive of ruptured hemorrhagic right ovarian cyst 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 Follow UP US in 1 month No other issue ESRD ON PD and possible Peritonitis Peritoneal drainage contained blood Has been on Hold for now Decided to have PD instead of HD now Continuing PD for now and the PD catheter drainage is clearing up Will need IP vanco and IP ceftazidime to instill at home after d/c to complete at least 2 wks therapy Repeat Peritoneal fluid WCC is decreased to 10 and RBC decrease to 3000 Continue with OP Treatment LIGHTHEADEDNESS Check orthostatic VS Received 500 mL bolus in ER No more IVF HYPERTENSION BP is stable Continue amlodipine, carvedilol DM TYPE 2 Diet controlled Novolog sliding scale coverage Chronic Anemia Likely due to ESRD Hb Dropped and receive d 1 unit of PRBC yesterday HB >8.0 today 04/20/17 Received 1 unit yesterday and HB>9 today DEPRESSION Continue Lexapro TOBACCO ABUSE Counselled patient about smoking cessation- states she is trying to quit FULL CODE DISPOSITION Telemetry Follows with Dr. Aldridge for primary care Vital Signs: Date Time Temp Pulse Resp B/P (MAP) Pulse Ox O2 Delivery O2 Flow Rate FiO2 04/22/17 16:00 Room Air 04/22/17 15:33 36.8 77 20 118/76 (90) 100 Room Air 04/22/17 12:00 Room Air 04/22/17 11:32 36.7 71 16 104/67 (79) 93 Room Air 04/22/17 10:31 36.8 118/78 (91) 04/22/17 10:30 36.8 68 16 118/78 (91) 04/22/17 08:00 Room Air 04/22/17 07:32 36.5 70 16 111/72 (85) 97 Room Air 04/22/17 04:00 98 Room Air 04/22/17 04:00 36.7 78 16 96/62 (73) 98 Room Air 04/22/17 00:00 100 Room Air 04/22/17 00:00 36.8 74 108/72 (84) 95 Room Air 04/21/17 20:12 36.7 135/81 (99) 04/21/17 20:00 100 Room Air 04/21/17 19:55 36.7 80 22 135/81 (99) 100 Room Air 04/21/17 16:31 36.9 76 22 117/79 (92) 96 Room Air Lab Results: Results Past 24 Hours Test 04/21/17 16:29 04/21/17 20:16 04/22/17 06:31 04/22/17 06:58 Range/Units Bedside Glucose 118 98 101 70-90 mg/dl White Blood Count 4.46 4.8-10.8 K/uL Red Blood Count 2.94 4.2-5.4 M/uL Hemoglobin 9.2 12.0-16.0 g/dL Hematocrit 27.0 37-47 % Mean Corpuscular Volume 91.8 80-100 fL Mean Corpuscular Hemoglobin 31.3 25-34 pg Mean Corpuscular Hemoglobin Concent 34.1 32-36 g/dl RDW Standard Deviation 54.6 36.4-46.3 fL RDW Coefficient of Variation 16.2 11.5-14.5 % Platelet Count 120 130-400 K/uL Mean Platelet Volume 10.3 7.4-10.4 fL Test 04/22/17 11:06 04/22/17 11:46 04/22/17 12:40 Range/Units Bedside Glucose 105 70-90 mg/dl Prothrombin Time 14.8 9.0-12.0 SECONDS Prothromb Time International Ratio 1.4 0.9-1.1 Peritoneal Fluid Color COLORLESS Peritoneal Fluid Appearance CLEAR Peritoneal Fluid WBC 10 0-300 /uL Peritoneal Fluid RBC < 3000 /uL Peritoneal Fld Mononuclear WBCs (%) 50.0 % Peritoneal Fld Polynuclear WBCs (%) 50.0 %
--- NOTE | 2017-04-22 16:22 | Nephrology Progress Note ---
Nephrology Progress Note Date of Service: Apr 22, 2017. Subjective pt on pd since the 7th of this month and presented with abdominal pain. has pleuritic pain on right side. currently on coumadin for possible pe. also being treated for a peritonitis. pd repeat cell count is pending. Objective Date Time Temp Pulse Resp B/P (MAP) Pulse Ox O2 Delivery O2 Flow Rate FiO2 04/22/17 16:00 Room Air 04/22/17 15:33 36.8 77 20 118/76 (90) 100 Room Air 04/22/17 12:00 Room Air 04/22/17 11:32 36.7 71 16 104/67 (79) 93 Room Air 04/22/17 10:31 36.8 118/78 (91) 04/22/17 10:30 36.8 68 16 118/78 (91) 04/22/17 08:00 Room Air 04/22/17 07:32 36.5 70 16 111/72 (85) 97 Room Air 04/22/17 04:00 98 Room Air 04/22/17 04:00 36.7 78 16 96/62 (73) 98 Room Air 04/22/17 00:00 100 Room Air 04/22/17 00:00 36.8 74 108/72 (84) 95 Room Air 04/21/17 20:12 36.7 135/81 (99) 04/21/17 20:00 100 Room Air 04/21/17 19:55 36.7 80 22 135/81 (99) 100 Room Air 04/21/17 16:31 36.9 76 22 117/79 (92) 96 Room Air Physical Exam: General-aaox3 Eyes-no scleral icterus ENT-mmm Neck-supple Lungs-cta Heart-rrr Abdomen-bs+ s/+tenderness to the right upper quadrant/+pd catheter Extremities-no c/c/e Neuro-nonfocal Current Inpatient Medications Medications (Trade) Dose Ordered Sig/[place]achin Route Start Time Stop Time Status Last Admin Dose Admin Acetaminophen (Tylenol Tab) 650 mg Q4H PRN PO 04/17/17 16:15 05/17/17 16:14 04/20/17 20:31 650 MG Ondansetron HCl (Zofran Inj) 4 mg Q6H PRN IV 04/17/17 16:15 05/17/17 16:14 04/21/17 18:39 4 MG Albuterol (Ventolin Hfa Inhaler) 2 puffs Q4H PRN INH 04/17/17 16:30 05/17/17 16:29 Calcium Acetate (Phoslo Cap) 1,334 mg UD PRN PO 04/17/17 16:30 05/17/17 16:29 04/19/17 20:26 1,334 MG Calcium Acetate (Phoslo Cap) 2,668 mg TIDM PO 04/17/17 17:53 05/17/17 17:59 04/22/17 08:46 2,668 MG Carvedilol (Coreg Tab) 6.25 mg BID PO 04/17/17 21:00 05/17/17 20:59 04/22/17 08:47 6.25 MG Escitalopram Oxalate (Lexapro Tab) 20 mg QAM PO 04/18/17 09:00 05/18/17 08:59 04/22/17 08:44 20 MG Famotidine (Pepcid Tab) 40 mg QAM PO 04/18/17 09:00 05/18/17 08:59 04/22/17 08:47 40 MG Fluticasone Propionate (Flonase Nasal [place]) 2 sprays DAILY PRN FRED 04/17/17 16:30 05/17/17 16:29 Lisinopril (Zestril Tab) 40 mg DAILY PO 04/18/17 09:00 05/18/17 08:59 04/22/17 08:47 40 MG Mirtazapine (Remeron Tab) 30 mg HS PO 04/17/17 21:00 05/17/17 20:59 04/21/17 21:39 30 MG Trazodone HCl (Desyrel Tab) 50 mg HS PO 04/17/17 21:00 05/17/17 20:59 04/21/17 21:39 50 MG Amlodipine Besylate (Norvasc Tab) 10 mg DAILY PO 04/18/17 09:00 05/18/17 08:59 04/22/17 08:45 10 MG Calcitriol (Rocaltrol Cap) 1 mcg QAM PO 04/18/17 09:00 05/18/17 08:59 04/22/17 08:45 1 MCG Insulin Aspart (novoLOG ASPART) SLIDING SCALE If C... ACHS SC 04/17/17 21:00 05/17/17 20:59 04/20/17 12:11 5 UNITS Glucose (Glucose 40% Gel) 15-30 GRAMS 15 GRAMS... UD PRN PO 04/17/17 17:15 05/17/17 17:14 Glucose (Glucose Chew Tab) 4-8 Tablets 4 Tabl... UD PRN PO 04/17/17 17:15 05/17/17 17:14 Dextrose (Dextrose 50% 50ML Syringe) 25-50ML OF 50% DW IV FOR... UD PRN IV 04/17/17 17:15 05/17/17 17:14 Glucagon (Glucagon Inj) 1 mg UD PRN SQ 04/17/17 17:15 05/17/17 17:14 Heparin Sodium/ Dextrose 500 ml @ 25 mls/hr Q20H PRN IV 04/17/17 18:00 05/17/17 17:59 Future Hold Hydromorphone HCl (Dilaudid Inj) 1 mg Q4 PRN IV 04/17/17 23:30 05/01/17 23:29 04/22/17 08:44 1 MG Hydromorphone HCl (Dilaudid Inj) 2 mg Q4 PRN IV 04/17/17 23:30 05/01/17 23:29 04/22/17 13:15 2 MG Diphenhydramine HCl (Benadryl Cap) 25 mg Q8H PRN PO 04/18/17 02:45 05/18/17 02:44 04/21/17 20:10 25 MG Senna/Docusate Sodium (Senokot S Tab) 1 tab QAM PO 04/21/17 09:00 05/21/17 08:59 04/22/17 08:45 1 TAB Senna (Senokot Tab) 17.2 mg QAM PO 04/21/17 09:00 05/21/17 08:59 04/22/17 08:45 17.2 MG Docusate Sodium (coLACE CAP) 100 mg BID PO 04/20/17 21:00 05/20/17 20:59 04/22/17 08:44 100 MG Bisacodyl (Dulcolax Tab) 5 mg DAILY PRN PO 04/20/17 15:15 05/20/17 15:14 Lactulose (Chronulac Syrup) 30 gm BID PRN PO 04/20/17 15:15 05/20/17 15:14 Warfarin Sodium (Coumadin Tab) 5 mg DAILY@16 PO 04/20/17 16:00 05/20/17 15:59 04/21/17 16:58 5 MG Last 24 Hours Test 04/21/17 16:29 04/21/17 20:16 04/22/17 06:31 04/22/17 06:58 Bedside Glucose 118 mg/dl 98 mg/dl 101 mg/dl White Blood Count 4.46 K/uL Red Blood Count 2.94 M/uL Hemoglobin 9.2 g/dL Hematocrit 27.0 % Mean Corpuscular Volume 91.8 fL Mean Corpuscular Hemoglobin 31.3 pg Mean Corpuscular Hemoglobin Concent 34.1 g/dl RDW Standard Deviation 54.6 fL RDW Coefficient of Variation 16.2 % Platelet Count 120 K/uL Mean Platelet Volume 10.3 fL Test 04/22/17 11:06 04/22/17 11:46 04/22/17 12:40 Bedside Glucose 105 mg/dl Prothrombin Time 14.8 SECONDS Prothromb Time International Ratio 1.4 Peritoneal Fluid Color COLORLESS Peritoneal Fluid Appearance CLEAR Peritoneal Fluid WBC 10 /uL Peritoneal Fluid RBC < 3000 /uL Peritoneal Fld Mononuclear WBCs (%) 50.0 % Peritoneal Fld Polynuclear WBCs (%) 50.0 % Assessment & Plan ESRD-on pd. treating for a peritonitis based on white cells. cultures though are negative. repeat cell count is pending for today. volume status looks good. to continue pd on all yellows tonight and continue ceftaz for now. will speak to outpt pd nurse tomorrow to see if we are able to arrange for ceftaz as outpt. pt at home is currently doing half yellow and half green but is out of yellows. will speak with outpt pd nurse also about that.
[2017-04-22] MEDS: WARFARIN SOD 5 MG TAB PO SCH (16:30)
[2017-04-22] MEDS: ONDANSETRON INJ 2 MG/ML 2 ML VIAL IV PRN (17:03)
[2017-04-22] MEDS: MIRTAZAPINE TAB 15 MG TAB PO SCH (21:08)
[2017-04-22] MEDS: TRAZODONE HCL 50 MG TAB PO SCH (21:08)
[2017-04-23] VITALS (14 sets, daily range): BP systolic 96–139; BP diastolic 60–88; PULSE 66–88; TEMP 36.5–36.9; O2SAT 95–100
[2017-04-23] MEDS: HYDROmorphone INJ 2 MG/ML SYR/VIAL IV PRN ×5 (00:55→20:57)
[2017-04-23] MEDS: ONDANSETRON INJ 2 MG/ML 2 ML VIAL IV PRN ×3 (00:55→17:17)
[2017-04-23 05:51] LABS: PROTHROMBIN TIME (PATIENT) 21.8 SECONDS (9.0-12.0)
[2017-04-23] MEDS: INSULIN ASPART 100 UNITS/ML 3 ML PEN SC SCH ×4 (07:00→20:19)
[2017-04-23] MEDS: AMLODIPINE BESYLATE 5 MG TAB PO SCH (08:41)
[2017-04-23] MEDS: LISINOPRIL 40 MG TAB PO SCH (08:41)
[2017-04-23] MEDS: CALCIUM ACETATE 667MG GELCAP PO SCH ×3 (08:42→16:28)
[2017-04-23] MEDS: CALCITRIOL 0.25 MCG CAP PO SCH (08:42)
[2017-04-23] MEDS: CARVEDILOL 6.25 MG TAB PO SCH ×2 (08:43→20:53)
[2017-04-23] MEDS: DOCUSATE SODIUM/SENNA 50/8.6MG TAB PO SCH (08:43)
[2017-04-23] MEDS: SENNA 8.6 MG TAB PO SCH (08:43)
[2017-04-23] MEDS: FAMOTIDINE 20 MG TAB PO SCH (08:43)
[2017-04-23] MEDS: DOCUSATE SODIUM 100 MG CAP PO SCH ×2 (08:43→20:50)
[2017-04-23] MEDS: ESCITALOPRAM OXALATE 20 MG TAB PO SCH (08:43)
[2017-04-23] MEDS: CEFTAZIDIME IP SCH (09:05)
[2017-04-23] MEDS: PERITONEAL 1.5% IP SCH (09:05)
[2017-04-23] MEDS: DIALYSIS IP SCH (09:05)
[2017-04-23] MEDS ORDERED: CEFTAZIDIME 1 GM PEG SCH (10:00)
--- NOTE | 2017-04-23 13:07 | Progress Note ---
Medicine Progress Note Date & Time of Visit: Apr 23, 2017 at 12:37. Subjective Pt was seen examined Sitting in bed comfortable with no distress Pt said that she has been having her menstruation every 2 weeks and lasts about 4 days she said that it has been going since December she said that she continue to have the right side tenderness that worsening with deep breathing Denies any chest pain, palpitation, sob and fever. Objective Last 8 Hrs Date Time Temp Pulse Resp B/P (MAP) Pulse Ox O2 Delivery O2 Flow Rate FiO2 04/23/17 12:00 Room Air 04/23/17 12:00 36.5 77 18 100/63 (75) 100 79 102/68 (79) 88 96/60 (72) 04/23/17 11:51 36.8 75 18 100/68 (79) 96 04/23/17 09:05 36.9 79 106/72 (83) 04/23/17 08:35 36.9 79 16 106/72 (83) 04/23/17 08:00 Room Air 04/23/17 07:36 36.5 76 18 135/66 (89) 95 Physical Exam: General- No acute distress Head- atraumatic Eyes- PERRL, EOMI ENT- oropharynx clear Neck- supple, no JVD Lungs- clear to auscultation Heart- regular rhythm Abdomen- normal bowel sounds, soft, nontender Extremities- no calf tenderness Neuro- alert, oriented x 3; PERRL, EOMI; no facial palsy Skin- warm & dry Laboratory Results: Last 24 Hours Test 04/22/17 12:40 04/22/17 16:21 04/22/17 20:15 04/23/17 05:10 Peritoneal Fluid Color COLORLESS Peritoneal Fluid Appearance CLEAR Peritoneal Fluid WBC 10 /uL Peritoneal Fluid RBC < 3000 /uL Peritoneal Fld Mononuclear WBCs (%) 50.0 % Peritoneal Fld Polynuclear WBCs (%) 50.0 % Bedside Glucose 101 mg/dl 124 mg/dl Prothrombin Time 21.8 SECONDS Prothromb Time International Ratio 2.0 Test 04/23/17 06:30 04/23/17 11:08 Bedside Glucose 105 mg/dl 129 mg/dl Assessment & Plan PULMONARY EMBOLISM Presents with chest pain, lightheadedness Was in the ER on 04/13/17, D-Dimer was elevated at that time , Due to hx ESRD on HD CTA chest was not done VQ scan done in ER showed intermediate probability, 2 small to moderate mismatched defects in bilateral lower lobes Family history of VTE noted Hypercoagulable workup pending Was started on heparin drip in ER that was discontinued because of intraperitoneal bleeding Comadin was started. INR today 2.0 Started on Coumadin on 04/20/17 Remains stable will monitor hgb Will discharge tomorrow Ruptured right Hemorrhagic cyst Presented with Abdominal pain CT -suggestive of ruptured hemorrhagic right ovarian cyst s/p 1 unit PRBC Appreciate [employer] evaluation Follow up U/S in 1 month No other issue ESRD ON PD Continuing PD Possible Peritonitis Will need IP vanco and IP ceftazidime to instill at home after d/c to complete at least 2 wks therapy Repeat Peritoneal fluid WCC is decreased to 10 and RBC decrease to 3000 Continue with OP Treatment LIGHTHEADEDNESS Stable HYPERTENSION BP is stable Continue amlodipine, carvedilol DM TYPE 2 Diet controlled Novolog sliding scale coverage Continue monitor BS Chronic Anemia Likely due to ESRD Received 1 unit of PRBC on 04/19 Hgb 9.2 stable DEPRESSION Continue Lexapro TOBACCO ABUSE Counselled patient about smoking cessation FULL CODE DISPOSITION Will discharge tomorrow if medically stable Will transfer to medical Follows with Dr. Aldridge for primary care Consultants: Nephrology Current Inpatient Medications: Current Inpatient Medications Medications (Trade) Dose Ordered Sig/Sachin Route Start Time Stop Time Status Last Admin Dose Admin Acetaminophen (Tylenol Tab) 650 mg Q4H PRN PO 04/17/17 16:15 05/17/17 16:14 04/20/17 20:31 650 MG Ondansetron HCl (Zofran Inj) 4 mg Q6H PRN IV 04/17/17 16:15 05/17/17 16:14 04/23/17 08:40 4 MG Albuterol (Ventolin Hfa Inhaler) 2 puffs Q4H PRN INH 04/17/17 16:30 05/17/17 16:29 Calcium Acetate (Phoslo Cap) 1,334 mg UD PRN PO 04/17/17 16:30 05/17/17 16:29 04/19/17 20:26 1,334 MG Calcium Acetate (Phoslo Cap) 2,668 mg TIDM PO 04/17/17 17:53 05/17/17 17:59 04/23/17 08:42 2,668 MG Carvedilol (Coreg Tab) 6.25 mg BID PO 04/17/17 21:00 05/17/17 20:59 04/23/17 08:43 6.25 MG Escitalopram Oxalate (Lexapro Tab) 20 mg QAM PO 04/18/17 09:00 05/18/17 08:59 04/23/17 08:43 20 MG Famotidine (Pepcid Tab) 40 mg QAM PO 04/18/17 09:00 05/18/17 08:59 04/23/17 08:43 40 MG Fluticasone Propionate (Flonase Nasal [place]) 2 sprays DAILY PRN FRED 04/17/17 16:30 05/17/17 16:29 Lisinopril (Zestril Tab) 40 mg DAILY PO 04/18/17 09:00 05/18/17 08:59 04/23/17 08:41 40 MG Mirtazapine (Remeron Tab) 30 mg HS PO 04/17/17 21:00 05/17/17 20:59 04/22/17 21:08 30 MG Trazodone HCl (Desyrel Tab) 50 mg HS PO 04/17/17 21:00 05/17/17 20:59 04/22/17 21:08 50 MG Amlodipine Besylate (Norvasc Tab) 10 mg DAILY PO 04/18/17 09:00 05/18/17 08:59 04/23/17 08:41 10 MG Calcitriol (Rocaltrol Cap) 1 mcg QAM PO 04/18/17 09:00 05/18/17 08:59 04/23/17 08:42 1 MCG Insulin Aspart (novoLOG ASPART) SLIDING SCALE If C... ACHS SC 04/17/17 21:00 05/17/17 20:59 04/20/17 12:11 5 UNITS Glucose (Glucose 40% Gel) 15-30 GRAMS 15 GRAMS... UD PRN PO 04/17/17 17:15 05/17/17 17:14 Glucose (Glucose Chew Tab) 4-8 Tablets 4 Tabl... UD PRN PO 04/17/17 17:15 05/17/17 17:14 Dextrose (Dextrose 50% 50ML Syringe) 25-50ML OF 50% DW IV FOR... UD PRN IV 04/17/17 17:15 05/17/17 17:14 Glucagon (Glucagon Inj) 1 mg UD PRN SQ 04/17/17 17:15 05/17/17 17:14 Heparin Sodium/ Dextrose 500 ml @ 25 mls/hr Q20H PRN IV 04/17/17 18:00 05/17/17 17:59 Future Hold Hydromorphone HCl (Dilaudid Inj) 1 mg Q4 PRN IV 04/17/17 23:30 05/01/17 23:29 04/22/17 08:44 1 MG Hydromorphone HCl (Dilaudid Inj) 2 mg Q4 PRN IV 04/17/17 23:30 05/01/17 23:29 04/23/17 12:18 2 MG Diphenhydramine HCl (Benadryl Cap) 25 mg Q8H PRN PO 04/18/17 02:45 05/18/17 02:44 04/22/17 18:07 25 MG Senna/Docusate Sodium (Senokot S Tab) 1 tab QAM PO 04/21/17 09:00 05/21/17 08:59 04/23/17 08:43 1 TAB Senna (Senokot Tab) 17.2 mg QAM PO 04/21/17 09:00 05/21/17 08:59 04/23/17 08:43 17.2 MG Docusate Sodium (coLACE CAP) 100 mg BID PO 04/20/17 21:00 05/20/17 20:59 04/23/17 08:43 100 MG Bisacodyl (Dulcolax Tab) 5 mg DAILY PRN PO 04/20/17 15:15 05/20/17 15:14 Lactulose (Chronulac Syrup) 30 gm BID PRN PO 04/20/17 15:15 05/20/17 15:14 04/23/17 08:44 30 GM Warfarin Sodium (Coumadin Tab) 5 mg DAILY@16 PO 04/20/17 16:00 05/20/17 15:59 04/22/17 16:30 5 MG Ceftazidime 750 mg/[facility] 2,007.5 ml @ 0 mls/hr TODAY@0700 IP 04/23/17 07:00 05/03/17 06:59 04/23/17 09:05 2,000 MLS/HR
[2017-04-23] MEDS: ACETAMINOPHEN 325 MG TAB PO PRN (14:14)
--- NOTE | 2017-04-23 15:47 | Nephrology Progress Note ---
Nephrology Progress Note Date of Service: Apr 23, 2017. Subjective ESRD on PD since 04/01 presented with right abdominal/pleuritic pain found to have possible ruptured ovarian cyst and likely PE. Patient states that she feels slightly better. She continues to get PD nightly and has improved right sided pain. on coumadin. Denies any recent bleeding. reports a lack of appetite but having regular bowel movements. states that she is drinking a lot of fluids. denies any increased SOB, chest pain, nausea, or vomiting. seated comfortably in bed. Objective Date Time Temp Pulse Resp B/P (MAP) Pulse Ox O2 Delivery O2 Flow Rate FiO2 04/23/17 12:00 Room Air 04/23/17 12:00 36.5 77 18 100/63 (75) 100 79 102/68 (79) 88 96/60 (72) 04/23/17 11:51 36.8 75 18 100/68 (79) 96 04/23/17 09:05 36.9 79 106/72 (83) 04/23/17 08:35 36.9 79 16 106/72 (83) 04/23/17 08:00 Room Air 04/23/17 07:36 36.5 76 18 135/66 (89) 95 04/23/17 04:00 96 Room Air 04/23/17 03:29 36.8 73 18 100/65 (77) 96 Room Air 04/23/17 00:00 36.8 79 18 127/84 (98) 98 Room Air 04/22/17 23:59 97 Room Air 04/22/17 20:00 97 Room Air 04/22/17 19:35 36.7 72 18 107/66 (80) 97 Room Air 04/22/17 19:20 36.7 73 16 107/66 (80) 04/22/17 19:01 36.7 73 107/66 (80) 04/22/17 16:00 Room Air Physical Exam: General-aaox3 Eyes-no scleral icterus ENT-mmm Neck-supple Lungs-cta Heart-rrr Abdomen-bs+ soft, +mild tenderness to the right middle/lower quadrant to light palpation. deep palpation not attempted. +pd catheter Extremities-no c/c/e Neuro-nonfocal Current Inpatient Medications Medications (Trade) Dose Ordered Sig/Sachin Route Start Time Stop Time Status Last Admin Dose Admin Acetaminophen (Tylenol Tab) 650 mg Q4H PRN PO 04/17/17 16:15 05/17/17 16:14 04/23/17 14:14 650 MG Ondansetron HCl (Zofran Inj) 4 mg Q6H PRN IV 04/17/17 16:15 05/17/17 16:14 04/23/17 08:40 4 MG Albuterol (Ventolin Hfa Inhaler) 2 puffs Q4H PRN INH 04/17/17 16:30 05/17/17 16:29 Calcium Acetate (Phoslo Cap) 1,334 mg UD PRN PO 04/17/17 16:30 05/17/17 16:29 04/19/17 20:26 1,334 MG Calcium Acetate (Phoslo Cap) 2,668 mg TIDM PO 04/17/17 17:53 05/17/17 17:59 04/23/17 08:42 2,668 MG Carvedilol (Coreg Tab) 6.25 mg BID PO 04/17/17 21:00 05/17/17 20:59 04/23/17 08:43 6.25 MG Escitalopram Oxalate (Lexapro Tab) 20 mg QAM PO 04/18/17 09:00 05/18/17 08:59 04/23/17 08:43 20 MG Famotidine (Pepcid Tab) 40 mg QAM PO 04/18/17 09:00 05/18/17 08:59 04/23/17 08:43 40 MG Fluticasone Propionate (Flonase Nasal [place]) 2 sprays DAILY PRN FRED 04/17/17 16:30 05/17/17 16:29 Lisinopril (Zestril Tab) 40 mg DAILY PO 04/18/17 09:00 05/18/17 08:59 04/23/17 08:41 40 MG Mirtazapine (Remeron Tab) 30 mg HS PO 04/17/17 21:00 05/17/17 20:59 04/22/17 21:08 30 MG Trazodone HCl (Desyrel Tab) 50 mg HS PO 04/17/17 21:00 05/17/17 20:59 04/22/17 21:08 50 MG Amlodipine Besylate (Norvasc Tab) 10 mg DAILY PO 04/18/17 09:00 05/18/17 08:59 04/23/17 08:41 10 MG Calcitriol (Rocaltrol Cap) 1 mcg QAM PO 04/18/17 09:00 05/18/17 08:59 04/23/17 08:42 1 MCG Insulin Aspart (novoLOG ASPART) SLIDING SCALE If C... ACHS SC 04/17/17 21:00 05/17/17 20:59 04/20/17 12:11 5 UNITS Glucose (Glucose 40% Gel) 15-30 GRAMS 15 GRAMS... UD PRN PO 04/17/17 17:15 05/17/17 17:14 Glucose (Glucose Chew Tab) 4-8 Tablets 4 Tabl... UD PRN PO 04/17/17 17:15 05/17/17 17:14 Dextrose (Dextrose 50% 50ML Syringe) 25-50ML OF 50% DW IV FOR... UD PRN IV 04/17/17 17:15 05/17/17 17:14 Glucagon (Glucagon Inj) 1 mg UD PRN SQ 04/17/17 17:15 05/17/17 17:14 Heparin Sodium/ Dextrose 500 ml @ 25 mls/hr Q20H PRN IV 04/17/17 18:00 05/17/17 17:59 Future Hold Hydromorphone HCl (Dilaudid Inj) 1 mg Q4 PRN IV 04/17/17 23:30 05/01/17 23:29 04/22/17 08:44 1 MG Hydromorphone HCl (Dilaudid Inj) 2 mg Q4 PRN IV 04/17/17 23:30 05/01/17 23:29 04/23/17 12:18 2 MG Diphenhydramine HCl (Benadryl Cap) 25 mg Q8H PRN PO 04/18/17 02:45 05/18/17 02:44 04/22/17 18:07 25 MG Senna/Docusate Sodium (Senokot S Tab) 1 tab QAM PO 04/21/17 09:00 05/21/17 08:59 04/23/17 08:43 1 TAB Senna (Senokot Tab) 17.2 mg QAM PO 04/21/17 09:00 05/21/17 08:59 04/23/17 08:43 17.2 MG Docusate Sodium (coLACE CAP) 100 mg BID PO 04/20/17 21:00 05/20/17 20:59 04/23/17 08:43 100 MG Bisacodyl (Dulcolax Tab) 5 mg DAILY PRN PO 04/20/17 15:15 05/20/17 15:14 Lactulose (Chronulac Syrup) 30 gm BID PRN PO 04/20/17 15:15 05/20/17 15:14 04/23/17 08:44 30 GM Warfarin Sodium (Coumadin Tab) 5 mg DAILY@16 PO 04/20/17 16:00 05/20/17 15:59 04/22/17 16:30 5 MG Ceftazidime 750 mg/[facility] 2,007.5 ml @ 0 mls/hr TODAY@0700 IP 04/23/17 07:00 05/03/17 06:59 04/23/17 09:05 2,000 MLS/HR Last 24 Hours Test 04/22/17 16:21 04/22/17 20:15 04/23/17 05:10 04/23/17 06:30 Bedside Glucose 101 mg/dl 124 mg/dl 105 mg/dl Prothrombin Time 21.8 SECONDS Prothromb Time International Ratio 2.0 Test 04/23/17 11:08 Bedside Glucose 129 mg/dl Assessment & Plan ESRD-on pd. continuing to get nightly dialysis. patient does CAPD at home. repeat cell count of peritoneal fluid had much improved/wnl white count and responding appropriately to antibiotics. will continue Antibiotics while inpatient but will likely not need as out patient. working with outpt PD nurse for PD supplies at home. Anemia: received one unit PRBCs. hgb improved to 9.2. will continue to monitor prn. denies any hematemesis or black/tarry stools. Hyperphosphatemia: phosphorus improved. Continuing to work with patient on compliance to binders and low phosphorus diet at home. continue binders with meals as prescribed. This patient was seen and treated with direct collaboration with Dr. Jo. Thank you for the opportunity to participate in this patient's care. Appreciate the Consult. ATTENDING NOTE: I performed a history and physical examination of the patient, including specifically on history- continues to have pain but appears improved, continues to have decreased appetite, on physical exam-decreased breath sounds at bases, no edema and my impression and plan are [id number] count improved. cultures negative. continue antibiotics while inpatient but do not feel necessary to continue them as outpt. I have discussed the patient's management with Cornelia Siegel PA-C, Please refer to above note for the documented findings and plan of care. Yohana Oncu DO
[2017-04-23] MEDS: WARFARIN SOD 5 MG TAB PO SCH (16:28)
[2017-04-23] MEDS: TRAZODONE HCL 50 MG TAB PO SCH (20:53)
[2017-04-23] MEDS: MIRTAZAPINE TAB 15 MG TAB PO SCH (20:53)
[2017-04-24] VITALS (7 sets, daily range): BP systolic 98–105; BP diastolic 60–69; PULSE 69–84; TEMP 36.8; O2SAT 96–100
[2017-04-24] MEDS: INSULIN ASPART 100 UNITS/ML 3 ML PEN SC SCH ×2 (07:00→11:00)
[2017-04-24 07:22] LABS: HEMATOCRIT 27.5 % (37-47); MEAN CELL VOLUME 92.6 fL (80-100); MEAN CORPUSCULAR HEMOGLOBIN 31.6 pg (25-34); MEAN CORPUSCULAR HGB CONC 34.2 g/dl (32-36); PLATELET COUNT 136 K/uL (130-400); RED BLOOD COUNT 2.97 M/uL (4.2-5.4); WHITE BLOOD COUNT 4.46 K/uL (4.8-10.8)
[2017-04-24 07:35] LABS: INR 2.7 (0.9-1.1); PROTHROMBIN TIME (PATIENT) 30.1 SECONDS (9.0-12.0)
[2017-04-24] MEDS: SENNA 8.6 MG TAB PO SCH (08:15)
[2017-04-24] MEDS: LISINOPRIL 40 MG TAB PO SCH (08:15)
[2017-04-24] MEDS: DOCUSATE SODIUM/SENNA 50/8.6MG TAB PO SCH (08:15)
[2017-04-24] MEDS: CALCITRIOL 0.25 MCG CAP PO SCH (08:15)
[2017-04-24] MEDS: DOCUSATE SODIUM 100 MG CAP PO SCH (08:16)
[2017-04-24] MEDS: FAMOTIDINE 20 MG TAB PO SCH (08:16)
[2017-04-24] MEDS: AMLODIPINE BESYLATE 5 MG TAB PO SCH (08:16)
[2017-04-24] MEDS: ESCITALOPRAM OXALATE 20 MG TAB PO SCH (08:16)
[2017-04-24] MEDS: CALCIUM ACETATE 667MG GELCAP PO SCH ×2 (08:16→11:30)
[2017-04-24] MEDS: CARVEDILOL 6.25 MG TAB PO SCH (08:16)
[2017-04-24 08:19] LABS: BUN/CREATININE RATIO 2.4 (10-20); CALCIUM 9.5 mg/dl (8.5-10.1); POTASSIUM 3.6 mmol/L (3.5-5.1)
[2017-04-24] MEDS: HYDROmorphone INJ 2 MG/ML SYR/VIAL IV PRN ×2 (08:32→13:01)
--- NOTE | 2017-04-24 08:41 | Nephrology Progress Note ---
Nephrology Progress Note Date of Service: Apr 24, 2017. Subjective Pt responding nicely to the antibiotics. peritonitis is resolving. continues to have pleuritic pain worse with inspiration and is about a 9/10. on coumadin. otherwise doing well. Objective Date Time Temp Pulse Resp B/P (MAP) Pulse Ox O2 Delivery O2 Flow Rate FiO2 04/24/17 07:51 36.8 69 18 105/60 (75) 96 04/24/17 04:06 36.8 78 18 98/65 (76) 100 Room Air 04/24/17 04:00 Room Air 04/24/17 00:00 Room Air 04/23/17 23:48 36.6 76 18 135/74 (94) 97 Room Air 04/23/17 21:16 36.7 73 115/73 (87) 04/23/17 21:00 66 139/88 (105) 04/23/17 19:15 Room Air 04/23/17 19:05 36.7 75 18 115/73 (87) 100 Room Air 04/23/17 16:39 36.7 72 18 107/70 (82) 04/23/17 16:03 36.7 72 18 107/70 (82) 100 Room Air 04/23/17 16:00 Room Air 04/23/17 12:00 Room Air 04/23/17 12:00 36.5 77 18 100/63 (75) 100 79 102/68 (79) 88 96/60 (72) 04/23/17 11:51 36.8 75 18 100/68 (79) 96 04/23/17 09:05 36.9 79 106/72 (83) Physical Exam: General-aaox3 Eyes-no scleral icterus ENT-mmm Neck-supple Lungs-clear Heart-regular Abdomen-bs+ s/+pd catheter, tenderness right upper quadrant Extremities-no c/c/e Neuro-nonfocal Current Inpatient Medications Medications (Trade) Dose Ordered Sig/Sachin Route Start Time Stop Time Status Last Admin Dose Admin Acetaminophen (Tylenol Tab) 650 mg Q4H PRN PO 04/17/17 16:15 05/17/17 16:14 04/23/17 14:14 650 MG Ondansetron HCl (Zofran Inj) 4 mg Q6H PRN IV 04/17/17 16:15 05/17/17 16:14 04/23/17 17:17 4 MG Albuterol (Ventolin Hfa Inhaler) 2 puffs Q4H PRN INH 04/17/17 16:30 05/17/17 16:29 Calcium Acetate (Phoslo Cap) 1,334 mg UD PRN PO 04/17/17 16:30 05/17/17 16:29 04/19/17 20:26 1,334 MG Calcium Acetate (Phoslo Cap) 2,668 mg TIDM PO 04/17/17 17:53 05/17/17 17:59 04/24/17 08:16 2,668 MG Carvedilol (Coreg Tab) 6.25 mg BID PO 04/17/17 21:00 05/17/17 20:59 04/24/17 08:16 6.25 MG Escitalopram Oxalate (Lexapro Tab) 20 mg QAM PO 04/18/17 09:00 05/18/17 08:59 04/24/17 08:16 20 MG Famotidine (Pepcid Tab) 40 mg QAM PO 04/18/17 09:00 05/18/17 08:59 04/24/17 08:16 40 MG Fluticasone Propionate (Flonase Nasal [place]) 2 sprays DAILY PRN FRED 04/17/17 16:30 05/17/17 16:29 Lisinopril (Zestril Tab) 40 mg DAILY PO 04/18/17 09:00 05/18/17 08:59 04/24/17 08:15 40 MG Mirtazapine (Remeron Tab) 30 mg HS PO 04/17/17 21:00 05/17/17 20:59 04/23/17 20:53 30 MG Trazodone HCl (Desyrel Tab) 50 mg HS PO 04/17/17 21:00 05/17/17 20:59 04/23/17 20:53 50 MG Amlodipine Besylate (Norvasc Tab) 10 mg DAILY PO 04/18/17 09:00 05/18/17 08:59 04/24/17 08:16 10 MG Calcitriol (Rocaltrol Cap) 1 mcg QAM PO 04/18/17 09:00 05/18/17 08:59 04/24/17 08:15 1 MCG Insulin Aspart (novoLOG ASPART) SLIDING SCALE If C... ACHS SC 04/17/17 21:00 05/17/17 20:59 04/20/17 12:11 5 UNITS Glucose (Glucose 40% Gel) 15-30 GRAMS 15 GRAMS... UD PRN PO 04/17/17 17:15 05/17/17 17:14 Glucose (Glucose Chew Tab) 4-8 Tablets 4 Tabl... UD PRN PO 04/17/17 17:15 05/17/17 17:14 Dextrose (Dextrose 50% 50ML Syringe) 25-50ML OF 50% DW IV FOR... UD PRN IV 04/17/17 17:15 05/17/17 17:14 Glucagon (Glucagon Inj) 1 mg UD PRN SQ 04/17/17 17:15 05/17/17 17:14 Heparin Sodium/ Dextrose 500 ml @ 25 mls/hr Q20H PRN IV 04/17/17 18:00 05/17/17 17:59 Future Hold Hydromorphone HCl (Dilaudid Inj) 1 mg Q4 PRN IV 04/17/17 23:30 05/01/17 23:29 04/22/17 08:44 1 MG Hydromorphone HCl (Dilaudid Inj) 2 mg Q4 PRN IV 04/17/17 23:30 05/01/17 23:29 04/24/17 08:32 2 MG Diphenhydramine HCl (Benadryl Cap) 25 mg Q8H PRN PO 04/18/17 02:45 05/18/17 02:44 04/22/17 18:07 25 MG Senna/Docusate Sodium (Senokot S Tab) 1 tab QAM PO 04/21/17 09:00 05/21/17 08:59 04/24/17 08:15 1 TAB Senna (Senokot Tab) 17.2 mg QAM PO 04/21/17 09:00 05/21/17 08:59 04/24/17 08:15 17.2 MG Docusate Sodium (coLACE CAP) 100 mg BID PO 04/20/17 21:00 05/20/17 20:59 04/24/17 08:16 100 MG Bisacodyl (Dulcolax Tab) 5 mg DAILY PRN PO 04/20/17 15:15 05/20/17 15:14 Lactulose (Chronulac Syrup) 30 gm BID PRN PO 04/20/17 15:15 05/20/17 15:14 04/23/17 08:44 30 GM Warfarin Sodium (Coumadin Tab) 5 mg DAILY@16 PO 04/20/17 16:00 05/20/17 15:59 04/23/17 16:28 5 MG Ceftazidime 750 mg/[facility] 2,007.5 ml @ 0 mls/hr TODAY@0700 IP 04/23/17 07:00 05/03/17 06:59 04/23/17 09:05 2,000 MLS/HR Last 24 Hours Test 04/23/17 11:08 04/23/17 16:02 04/23/17 20:02 04/24/17 06:37 Bedside Glucose 129 mg/dl 108 mg/dl 88 mg/dl White Blood Count 4.46 K/uL Red Blood Count 2.97 M/uL Hemoglobin 9.4 g/dL Hematocrit 27.5 % Mean Corpuscular Volume 92.6 fL Mean Corpuscular Hemoglobin 31.6 pg Mean Corpuscular Hemoglobin Concent 34.2 g/dl RDW Standard Deviation 54.3 fL RDW Coefficient of Variation 15.8 % Platelet Count 136 K/uL Mean Platelet Volume 10.0 fL Prothrombin Time 30.1 SECONDS Prothromb Time International Ratio 2.7 Sodium Level 134 mmol/L Potassium Level 3.6 mmol/L Chloride Level 94 mmol/L Carbon Dioxide Level 26 mmol/L Anion Gap 14.0 mmol/L Blood Urea Nitrogen 38 mg/dl Creatinine 16.00 mg/dl Est Creatinine Clear Calc Drug Dose 5.5 ml/min Estimated GFR () 3.0 Estimated GFR (Non- 2.6 BUN/Creatinine Ratio 2.4 Random Glucose 91 mg/dl Calcium Level 9.5 mg/dl Test 04/24/17 06:40 Bedside Glucose 96 mg/dl Assessment & Plan ESRD-on pd. peritonitis is resolving. will stop the ip antibiotics as an outpt since culture negative and may have been a spurious elevation in white count from the significant rbcs. Anemia: on procrit trying to maintain hg between 10 and 11. will redose the procrit today. Will continue all yellows for now since volume status appears appropriate.
[2017-04-24] MEDS: DIALYSIS IP SCH (10:00)
[2017-04-24] MEDS: CEFTAZIDIME IP SCH (10:00)
[2017-04-24] MEDS ORDERED: EPOETIN ALFA 10,000 UNITS/ML VIAL SQ SCH (10:00)
[2017-04-24] MEDS: PERITONEAL 1.5% IP SCH (10:00)
--- NOTE | 2017-04-24 10:57 | Progress Note ---
Medicine Progress Note Date & Time of Visit: Apr 24, 2017 at 10:37. Subjective Pt was seen and examined Sitting in bed comfortable with no distress playing on her cell phone Pt said that she did eat much this morning She denies any chest pain, palpitation, dizziness and SOB Objective Last 8 Hrs Date Time Temp Pulse Resp B/P (MAP) Pulse Ox O2 Delivery O2 Flow Rate FiO2 04/24/17 08:00 96 Room Air 04/24/17 07:51 36.8 69 18 105/60 (75) 96 04/24/17 04:06 36.8 78 18 98/65 (76) 100 Room Air 04/24/17 04:00 Room Air Physical Exam: General- No acute distress Head- atraumatic Eyes- PERRL, EOMI ENT- oropharynx clear Neck- supple, no JVD Lungs- clear to auscultation Heart- regular rhythm Abdomen- normal bowel sounds, soft, nontender Extremities- no calf tenderness Neuro- alert, oriented x 3; PERRL, EOMI; no facial palsy Skin- warm & dry Laboratory Results: Last 24 Hours Test 04/23/17 11:08 04/23/17 16:02 04/23/17 20:02 04/24/17 06:37 Bedside Glucose 129 mg/dl 108 mg/dl 88 mg/dl White Blood Count 4.46 K/uL Red Blood Count 2.97 M/uL Hemoglobin 9.4 g/dL Hematocrit 27.5 % Mean Corpuscular Volume 92.6 fL Mean Corpuscular Hemoglobin 31.6 pg Mean Corpuscular Hemoglobin Concent 34.2 g/dl RDW Standard Deviation 54.3 fL RDW Coefficient of Variation 15.8 % Platelet Count 136 K/uL Mean Platelet Volume 10.0 fL Prothrombin Time 30.1 SECONDS Prothromb Time International Ratio 2.7 Sodium Level 134 mmol/L Potassium Level 3.6 mmol/L Chloride Level 94 mmol/L Carbon Dioxide Level 26 mmol/L Anion Gap 14.0 mmol/L Blood Urea Nitrogen 38 mg/dl Creatinine 16.00 mg/dl Est Creatinine Clear Calc Drug Dose 5.5 ml/min Estimated GFR () 3.0 Estimated GFR (Non- 2.6 BUN/Creatinine Ratio 2.4 Random Glucose 91 mg/dl Calcium Level 9.5 mg/dl Test 04/24/17 06:40 Bedside Glucose 96 mg/dl Assessment & Plan PULMONARY EMBOLISM Presents with chest pain, lightheadedness Was in the ER on 04/13/17, D-Dimer was elevated at that time , Due to hx ESRD on HD CTA chest was not done VQ scan done in ER showed intermediate probability, 2 small to moderate mismatched defects in bilateral lower lobes Family history of VTE noted Hypercoagulable workup pending Was started on heparin drip in ER that was discontinued because of intraperitoneal bleeding Starting on Coumadin on 04/20/17 INR today 2.7 Remains stable will monitor hgb Follow up with the coag clinic Will check INR on Saturday Will decrease coumadin to 2.5 mg Ruptured right Hemorrhagic cyst Presented with Abdominal pain CT -suggestive of ruptured hemorrhagic right ovarian cyst s/p 1 unit PRBC Appreciate [employer] evaluation Follow up U/S in 1 month No other issue ESRD ON PD Continuing PD Possible Peritonitis- Resolved Will need IP vanco and IP ceftazidime to instill at home after d/c to complete at least 2 wks therapy Repeat Peritoneal fluid WCC is decreased to 10 and RBC decrease to 3000 Will d/c OP Abx as per nephrology LIGHTHEADEDNESS Stable HYPERTENSION BP is stable Continue amlodipine, carvedilol DM TYPE 2 Diet controlled Novolog sliding scale coverage Continue monitor BS Chronic Anemia Likely due to ESRD Received 1 unit of PRBC on 04/19 Hgb 9.4 stable DEPRESSION Continue Lexapro TOBACCO ABUSE Counselled patient about smoking cessation FULL CODE DISPOSITION Will discharge home today Follows with Dr. Aldridge for primary care Consultants: Nephrology Current Inpatient Medications: Current Inpatient Medications Medications (Trade) Dose Ordered Sig/Sachin Route Start Time Stop Time Status Last Admin Dose Admin Acetaminophen (Tylenol Tab) 650 mg Q4H PRN PO 04/17/17 16:15 05/17/17 16:14 04/23/17 14:14 650 MG Ondansetron HCl (Zofran Inj) 4 mg Q6H PRN IV 04/17/17 16:15 05/17/17 16:14 04/23/17 17:17 4 MG Albuterol (Ventolin Hfa Inhaler) 2 puffs Q4H PRN INH 04/17/17 16:30 05/17/17 16:29 Calcium Acetate (Phoslo Cap) 1,334 mg UD PRN PO 04/17/17 16:30 05/17/17 16:29 04/19/17 20:26 1,334 MG Calcium Acetate (Phoslo Cap) 2,668 mg TIDM PO 04/17/17 17:53 05/17/17 17:59 04/24/17 08:16 2,668 MG Carvedilol (Coreg Tab) 6.25 mg BID PO 04/17/17 21:00 05/17/17 20:59 04/24/17 08:16 6.25 MG Escitalopram Oxalate (Lexapro Tab) 20 mg QAM PO 04/18/17 09:00 05/18/17 08:59 04/24/17 08:16 20 MG Famotidine (Pepcid Tab) 40 mg QAM PO 04/18/17 09:00 05/18/17 08:59 04/24/17 08:16 40 MG Fluticasone Propionate (Flonase Nasal [place]) 2 sprays DAILY PRN FRED 04/17/17 16:30 05/17/17 16:29 Lisinopril (Zestril Tab) 40 mg DAILY PO 04/18/17 09:00 05/18/17 08:59 04/24/17 08:15 40 MG Mirtazapine (Remeron Tab) 30 mg HS PO 04/17/17 21:00 05/17/17 20:59 04/23/17 20:53 30 MG Trazodone HCl (Desyrel Tab) 50 mg HS PO 04/17/17 21:00 05/17/17 20:59 04/23/17 20:53 50 MG Amlodipine Besylate (Norvasc Tab) 10 mg DAILY PO 04/18/17 09:00 05/18/17 08:59 04/24/17 08:16 10 MG Calcitriol (Rocaltrol Cap) 1 mcg QAM PO 04/18/17 09:00 05/18/17 08:59 04/24/17 08:15 1 MCG Insulin Aspart (novoLOG ASPART) SLIDING SCALE If C... ACHS SC 04/17/17 21:00 05/17/17 20:59 04/20/17 12:11 5 UNITS Glucose (Glucose 40% Gel) 15-30 GRAMS 15 GRAMS... UD PRN PO 04/17/17 17:15 05/17/17 17:14 Glucose (Glucose Chew Tab) 4-8 Tablets 4 Tabl... UD PRN PO 04/17/17 17:15 05/17/17 17:14 Dextrose (Dextrose 50% 50ML Syringe) 25-50ML OF 50% DW IV FOR... UD PRN IV 04/17/17 17:15 05/17/17 17:14 Glucagon (Glucagon Inj) 1 mg UD PRN SQ 04/17/17 17:15 05/17/17 17:14 Heparin Sodium/ Dextrose 500 ml @ 25 mls/hr Q20H PRN IV 04/17/17 18:00 05/17/17 17:59 Future Hold Hydromorphone HCl (Dilaudid Inj) 1 mg Q4 PRN IV 04/17/17 23:30 05/01/17 23:29 04/22/17 08:44 1 MG Hydromorphone HCl (Dilaudid Inj) 2 mg Q4 PRN IV 04/17/17 23:30 05/01/17 23:29 04/24/17 08:32 2 MG Diphenhydramine HCl (Benadryl Cap) 25 mg Q8H PRN PO 04/18/17 02:45 05/18/17 02:44 04/22/17 18:07 25 MG Senna/Docusate Sodium (Senokot S Tab) 1 tab QAM PO 04/21/17 09:00 05/21/17 08:59 04/24/17 08:15 1 TAB Senna (Senokot Tab) 17.2 mg QAM PO 04/21/17 09:00 05/21/17 08:59 04/24/17 08:15 17.2 MG Docusate Sodium (coLACE CAP) 100 mg BID PO 04/20/17 21:00 05/20/17 20:59 04/24/17 08:16 100 MG Bisacodyl (Dulcolax Tab) 5 mg DAILY PRN PO 04/20/17 15:15 05/20/17 15:14 Lactulose (Chronulac Syrup) 30 gm BID PRN PO 04/20/17 15:15 05/20/17 15:14 04/23/17 08:44 30 GM Warfarin Sodium (Coumadin Tab) 5 mg DAILY@16 PO 04/20/17 16:00 9/25/17 15:59 04/23/17 16:28 5 MG Ceftazidime 750 mg/Per[facility] 2,007.5 ml @ 0 mls/hr TODAY@0700 IP 04/23/17 07:00 05/03/17 06:59 04/24/17 10:00 2,000 MLS/HR Epoetin Travis (Procrit Inj) 10,000 units TODAY@1000 SQ 04/24/17 10:00 04/24/17 16:00
[2017-04-24] MEDS ORDERED: CMD/25 PO (12:00)
--- NOTE | 2017-04-24 12:21 | Discharge Instructions ---
Discharge Instructions Date of Service Apr 24, 2017. Admission Reason for Admission: Pulmonary Emboli Discharge Discharge Diagnosis / Problem: (1) Peritoneal dialysis catheter in place (2) Pulmonary emboli (3) CKD (chronic kidney disease) stage V requiring chronic dialysis VTE Date & Time Date of VTE Diagnosis: Apr 17, 2017 Time of VTE Diagnosis: 14:21 Discharge Goals Goal(s): Decrease discomfort, Improve function, Improve disease control Activity Recommendations Activity Limitations: resume your previous activity (as tolerated) . Instructions / Follow-Up Instructions / Follow-Up Follow up appointment with your primary care provider Dr. Aldridge on Apr 30 @ 2: 55 PM Follow up with the coumadin clinic on SaturdayApr 26 @ 10:30 AM at the [facility] ER INR on discharge day 2.7 Follow up with [facility] as an outpatient Follow up U/S of the pelvis in 1 month for the ruptured hemorrhagic right ovarian cyst Monitor CBC Continue peritoneal dialysis ceftazidime can be discontinued Medication Instructions: * Warfarin is a medicine prescribed to prevent blood clots * Warfarin will thin your blood and help prevent new clots * Take your medications exactly as directed * Never skip a dose. Never take a double dose. If you miss a dose, take it as soon as you remember * It is important for your doctor to monitor your prothrombin time (PT). This is a lab test * Keep your appointment for lab tests Risk of Adverse Drug Reactions and Interactions: * Warfarin increases your risk of bleeding * The food you eat and other medications you take can affect how Warfarin works in your body * Ask your doctor about daily aspirin therapy * It is very important to talk with your doctor about all of the other medicines , antibiotics, vitamins or herbal products that you are taking * All of your medication must be approved by your doctor, including new medicines, as well as medicines you have taken before you started taking Warfarin Diet: * In order for Warfarin to work properly, it is important to keep your intake of Vitamin K as consistent as possible * You should avoid any sudden change in Vitamin K intake * Report any significant changes in your diet or weight to your doctor . Avoid eating green vegetables Call your Primary Care doctor if you experience any of the following: * Swelling or Pain in your leg * Sudden, continuous pain deep in a muscle * Pain that worsens when you are active or when you stand still for a long time * Chest Pain * Sudden Shortness of Breath * Rapid or pounding heart beat * Fainting * Dizziness * Cough with blood or bloody sputum * Sweating more than normal * Bruises * Heavy or uncontrolled bleeding * Blood in your urine, stool or vomit * Black or tarry stools Caring for Your Self at Home: * Avoid sitting, standing or lying down for long periods without moving your legs and feet * When traveling by car, stop to get out and move around at least once every 3 hours * On long airplane, train or bus rides, get up and move around when possible * If you can't get up, wiggle your toes and tighten your calves to keep your blood moving Follow Up: It is important for you to keep your follow up appointments with your medical provider. Current Hospital Diet Patient's current hospital diet: Diabetes Type 2 Diet, Renal Diet Discharge Diet Recommended Diet: Renal Diet Pending Studies Studies pending at discharge: no Laboratory Results Hemoglobin A1c Test 01/23/17 04:25 Range/Units Estimated Average Glucose 97 mg/dl Hemoglobin A1c 5.0 4.5-5.6 % Medical Emergencies . Who to Call and When: Medical Emergencies: If at any time you feel your situation is an emergency, please call 911 immediately. . Non-Emergent Contact Non-Emergency issues call your: Primary Care Provider Call Non-Emergent contact if: you have any medication questions . . "Provider Documentation" section prepared by Ambreen Lutz. . VTE Core Measure Inpt VTE Proph given/why not?: Unfractionated heparin SQ, Other Anticoagulation Reason no anticoag overlap I/P: Contraindicated (bleeding) Reason no anticoag overlap @DC: Contraindicated (bleeding)
[2017-04-25 14:01] LABS: PROTEIN C ACTIVITY** TC 1777X 114 % (70-180); PROTEIN S ACT(FUNCT)**1779X 153 % (60-140)
--- NOTE | 2017-04-25 14:15 | Discharge Summary ---
Discharge Summary Date of Service Apr 25, 2017. Discharge Summary Admission Date: Apr 17, 2017 at 15:35 Discharge Date: Apr 24, 2017 Discharge Disposition: Home Principal Diagnosis: Pulmonary Embolism Secondary Diagnoses/Problems: Ruptured right Hemorrhagic cyst ESRD On PD HTN DM type 2 Tobacco abuse Chronic anemia Depression Procedures: CT SCAN OF THE ABDOMEN AND PELVIS WITHOUT IV CONTRAST CLINICAL HISTORY: Bleeding during peritoneal dialysis. COMPARISON STUDY: Abdominal CT dated 03/06/2017. TECHNIQUE: CT scan of the abdomen and pelvis is performed from the lung bases to the proximal femora. Images are reviewed in the axial, sagittal, and coronal planes. IV contrast was not administered for this examination as per the referring clinician. Note that the examination is suboptimal without oral and IV contrast. A dose lowering technique was utilized adhering to the principles of ALARA. CT DOSE: 764.87 mGy.cm FINDINGS: Lung bases: The heart is normal in size and without pericardial effusion. There are coronary artery calcifications. The lung bases are clear. Liver: The unenhanced liver is normal in size, contour, and attenuation. There is no intrahepatic biliary ductal dilatation. Gallbladder: Surgically absent. Spleen: Normal in size and attenuation. Pancreas: Unremarkable. Adrenal glands: Unremarkable. Kidneys: The unenhanced kidneys are markedly atrophic and without hydronephrosis. There are no renal calculi identified. There is no evidence of contour deforming renal mass lesion. Abdominal vasculature: The abdominal aorta is normal in course and caliber noting mild atherosclerotic calcification. Bowel: The small bowel and colon are normal in course and caliber. The appendix is not identified. Peritoneum and retroperitoneum: A peritoneal dialysis catheter is coiled in the right lower quadrant from a midline approach. There is a small to moderate volume of free fluid in the abdomen and pelvis. There is layering hyperdense fluid in the pelvis consistent with hemoperitoneum. No retroperitoneal hematoma is seen. No intraperitoneal free air is identified. Lymphadenopathy: None. Pelvic viscera: The bladder is decompressed and grossly unremarkable. The uterus are normal as visualized. There is a 4.3 cm cyst in the right ovary which contains hyperdense fluid. Left ovarian follicles are noted. A densely calcified structure in the right adnexa likely represents an atrophic renal transplant. Skeletal structures: No lytic or blastic lesions are seen. IMPRESSION: 1. There is a small to moderate volume of free fluid in the abdomen and pelvis, likely related to peritoneal dialysis. 2. There is a small volume of layering hyperdense fluid in the pelvis consistent with hemoperitoneum. This is of indeterminate etiology, and may be related to a ruptured hemorrhagic right ovarian cyst as there is a 4.3 cm cystic lesion seen in the right ovary which also appears to contain hyperdense fluid. 3. No organized hematoma is identified. 4. A calcified structure in the right pelvis likely represents an atrophic renal transplant. Electronically signed by: North Quintero M.D. 04/17/2017 10:25 PM Dictated Date/Time: 04/17/2017 10:14 PM [~ rep ct add3]] VENOUS DOPPLER LWR EXT BILA CLINICAL HISTORY: 31 years-old Female presenting with pleuritic cp cant get ct pe. TECHNIQUE: Real-time grayscale and color and spectral Doppler ultrasound imaging of the veins of the bilateral lower extremities was performed. Compression and augmentation were also utilized. COMPARISON: 01/23/2017. FINDINGS: Right: Common femoral vein: Patent. Femoral vein: Patent. Greater saphenous vein: Patent. Popliteal vein: Patent. Calf veins: Patent. Left: Common femoral vein: Patent. Femoral vein: Patent. Greater saphenous vein: Patent. Popliteal vein: Patent. Calf veins: Patent. Other: None. IMPRESSION: No evidence of deep venous thrombosis. Electronically signed by: Hany Moreno M.D. 04/17/2017 1:09 PM Dictated Date/Time: 04/17/2017 1:08 PM 2DECHO Interpretation Summary * Name: NATHALIA DUTTON Study Date: 04/18/2017 06:55 AM BP: 100/61 mmHg * Patient Location: [facility]\\S\\1 HR: 71 * : 1985 (M/d/yyyy) Gender: Female Height: 66 in * Age: 31 yrs Ethnicity: CA Weight: 189 lb * Ordering Physician: Ade Self * Referring Physician: Self, Referred * Performed By: Odell Huerta RCS * * Reason For Study: Pulm. Embolism, Eval for right Heart Strain * BSA: 2.0 m2 * The study was technically adequate. * Compared to prior study, changes are noted. * -- Conclusions -- * Left ventricular systolic function is normal. * Ejection Fraction = 60-65%. * There is borderline concentric left ventricular hypertrophy. * Diastolic dysfunction, Grade II (pseudonormalization pattern). * There is trace mitral regurgitation. * The right ventricle is normal size. * The right ventricular systolic function is normal as assessed by tricuspid annular plane systolic excursion (TAPSE) (normal >1.5 cm). Procedure Details * A complete two-dimensional transthoracic echocardiogram was performed (2D, M- mode, Doppler and color flow Doppler). Left Ventricle * The left ventricle is normal in size. * There is no thrombus. * There is borderline concentric left ventricular hypertrophy. * Left ventricular systolic function is normal. * Ejection Fraction = 60-65%. * The left ventricular wall motion is normal. Right Ventricle * The right ventricle is normal size. * The right ventricular systolic function is normal as assessed by tricuspid annular plane systolic excursion (TAPSE) (normal >1.5 cm). Atria * The left atrial size is normal. * Right atrial size is normal. * There is no evidence of atrial septal defect, but resolution does not allow assessment for a patent foramen ovale. Mitral Valve * The mitral valve is normal. * There is no mitral valve stenosis. * There is trace mitral regurgitation. Tricuspid Valve * The tricuspid valve is normal. * There is no tricuspid stenosis. * Significant tricuspid regurgitation is absent. Aortic Valve * The aortic valve is trileaflet. * Aortic stenosis is absent. * There is no significant aortic regurgitation. Pulmonic Valve * The pulmonary valve is inadequately visualized, but the Doppler data is adequate for interpretation. * There is no pulmonic valvular stenosis. * Trace pulmonic valvular regurgitation. Pericardium/Pleural * There is no pericardial effusion. Great Vessels * Normal inferior vena cava diameter and respiratory variation suggests normal central venous pressure. Left Ventricular Diastolic Function * Diastolic dysfunction, Grade II (pseudonormalization pattern). CHEST ONE VIEW PORTABLE HISTORY: cough COMPARISON: Chest 04/13/2017. FINDINGS: The lungs are clear. No pleural effusions. No pneumothorax. The heart remains top normal in size. No evidence for pulmonary edema. No rib fractures. IMPRESSION: No significant change compared to the prior study. No acute process. Electronically signed by: Jose Jenkins M.D. 04/17/2017 10:52 AM Dictated Date/Time: 04/17/2017 10:51 AM NUCLEAR MEDICINE VENTILATION/PERFUSION SCAN HISTORY: Right-sided chest pain. TECHNIQUE: Immediately following the inhalation of 33 mCi of technetium 99 M DTPA a ventilation scan was performed and immediately following the intravenous administration of 5.4 mCi of technetium 99 M MAA a perfusion scan was performed. Anterior, posterior, oblique, lateral views the chest were obtained. COMPARISON STUDY: Chest 04/17/2017. FINDINGS: Prominence of the cardiac silhouette. There or 2 small to moderate mismatched defects seen within the bilateral lower lobes. The upper lung zones perfuse normally. IMPRESSION: Above findings are consistent with an intermediate probability scan. Electronically signed by: Jose Jenkins M.D. 04/17/2017 2:21 PM Dictated Date/Time: 04/17/2017 2:15 PM Consultations: Nephrology Medication Reconciliation New Medications: Warfarin Sod (Coumadin) 2.5 Mg Tab 1 TAB PO DAILY for 30 Days, #30 TAB 0 Refills Continued Medications: Albuterol Hfa (Ventolin Hfa) 200 Puffs/38181 Mcg Aers 2 PUFFS INH Q4H PRN for SOB/Wheezing, INHALER Amlodipine Besylate (Amlodipine Besylate) 10 Mg Tab 10 MG PO DAILY Calcitriol (Calcitriol) 0.5 Mcg Cap 2 CAP PO QAM, #60 Calcium Acetate (Phoslo 667 Mg) 667 Mg Cap 4 CAP PO WM, CAP TAKE 4 CAPSULES WITH MEALS Calcium Acetate (Phoslo 667 Mg) 667 Mg Cap 2 CAP PO WITH SNACKS, CAP TAKE 2 CAPSULES WITH SNACKS Calcium Carbonate (Tums) 500 Mg Chew 1500 MG PO HS Carvedilol (Coreg) 3.125 Mg Tab 6.25 MG PO BID TWO 3.125 MG TABLETS TWICE DAILY, PER PATIENT. Escitalopram Oxalate (Escitalopram Oxalate) 20 Mg Tab 20 MG PO QAM Famotidine (Pepcid) 40 Mg Tab 40 MG PO QAM, TAB Fluticasone Propionate (Nasal) (Flonase Allergy Relief) 50 Mcg/Act Spr 2 SPRAYS FRED DAILY PRN for Nasal Congestion Lisinopril (Lisinopril) 40 Mg Tab 40 MG PO DAILY Mirtazapine (Remeron) 30 Mg Tab 30 MG PO HS Trazodone Hcl (Trazodone) 50 Mg Tab 50 MG PO HS, TAB Admission Information HPI (per Admitting provider): This is a 31 y/o female with PMH of ESRD on PD, DM type 2, HTN, 1/2 ppd smoker, chronic chest pain with negative cardiac cath in January 2017, and other problems listed below who presents to the ED for lightheadedness and right sided chest discomfort. Patient was recently admitted March 20-2016 for chest pain- no ACS , and symptomatic anemia requiring 1 unit pRBC. Had multiple ER visits since that time. Seen in ER 04/13/17 for chest pain, was noted to have D dimer elevated to 590, LE doppler ordered but patient left before it could be done. Seen again in ER on 04/15/17 for dizziness, was given IVF's and discharged to home. Pt states current chest pain started 4 days ago. Pain extends from right flank to her right shoulder, currently rated 9/10. Pain worsens with deep inspiration. States this feels different from prior chest pain. She reports lightheadedness/ pre-syncope upon standing x 2-3 days. Has been nauseous with decreased PO intake for past few days. No vomiting. Feels hungry now. Reports diarrhea x 1 month. States she is being worked up by GI as outpatient for pancreas issues. She reports diffuse cramping "all over." No change in urination. Does PD QID at home, but only did one session so far today. Denies syncope, cough, SOB, LE edema, weight gain. No recent travel. Has been ambulating normally. Last surgery was in January 2017- PD catheter placement and hernia repair. No injury or heavy lifting. No personal hx of VTE. Has family hx of blood clots in her father and brother. Physical Exam (per Admitting): General Appearance: WD/WN, no apparent distress Head: normocephalic, atraumatic Eyes: normal inspection, sclerae normal ENT: hearing grossly normal, pharynx normal Neck: supple, trachea midline Respiratory/Chest: lungs clear, normal breath sounds, no respiratory distress, no accessory muscle use, + pertinent finding (reproducible tenderness on right lateral ribs and right upper chest) Cardiovascular: regular rate, rhythm, no murmur Abdomen/GI: normal bowel sounds, non tender, soft, + pertinent finding (PD catheter in place) Back: no CVA tenderness Extremities/Musculoskelatal: no calf tenderness, no pedal edema, + pertinent finding (right shoulder tender anteriorly, increasing discomfort with ROM) Neurologic/Psych: alert, normal mood/affect, oriented x 3 Skin: normal color, warm/dry, no rash (no rash on the chest) Hospital Course PULMONARY EMBOLISM Presents with chest pain, lightheadedness Was in the ER on 04/13/17, D-Dimer was elevated at that time , Due to hx ESRD on HD CTA chest was not done VQ scan done in ER showed intermediate probability, 2 small to moderate mismatched defects in bilateral lower lobes Family history of VTE noted Hypercoagulable workup pending Was started on heparin drip in ER that was discontinued because of intraperitoneal bleeding Starting on Coumadin on 04/20/17 INR today 2.7 Remains stable will monitor hgb Follow up with the coag clinic Will check INR on Saturday Will decrease coumadin to 2.5 mg Ruptured right Hemorrhagic cyst Presented with Abdominal pain CT -suggestive of ruptured hemorrhagic right ovarian cyst s/p 1 unit PRBC Appreciate METAL CONTROL COORDINATOR evaluation Follow up U/S in 1 month No other issue ESRD ON PD Continuing PD Possible Peritonitis- Resolved Will need IP vanco and IP ceftazidime to instill at home after d/c to complete at least 2 wks therapy Repeat Peritoneal fluid WCC is decreased to 10 and RBC decrease to 3000 Will d/c OP Abx as per nephrology LIGHTHEADEDNESS Stable HYPERTENSION BP is stable Continue amlodipine, carvedilol DM TYPE 2 Diet controlled Novolog sliding scale coverage Continue monitor BS Chronic Anemia Likely due to ESRD Received 1 unit of PRBC on 04/19 Hgb 9.4 stable DEPRESSION Continue Lexapro TOBACCO ABUSE Counselled patient about smoking cessation FULL CODE DISPOSITION Will discharge home today Follows with Dr. Aldridge for primary care Total time spent on discharge = 35 minutes This includes examination of the patient, discharge planning, medication reconciliation, and communication with other providers. Discharge Instructions DI: VTE Warfarin v4 Discharge Instructions Date of Service Apr 24, 2017. Admission Reason for Admission: Pulmonary Emboli Discharge Discharge Diagnosis / Problem: (1) Peritoneal dialysis catheter in place (2) Pulmonary emboli (3) CKD (chronic kidney disease) stage V requiring chronic dialysis VTE Date & Time Date of VTE Diagnosis: Apr 17, 2017 Time of VTE Diagnosis: 14:21 Discharge Goals Goal(s): Decrease discomfort, Improve function, Improve disease control Activity Recommendations Activity Limitations: resume your previous activity (as tolerated) . Instructions / Follow-Up Instructions / Follow-Up Follow up appointment with your primary care provider Dr. Aldridge on Apr 30 @ 2: 55 PM Follow up with the coumadin clinic on SaturdayApr 26 @ 10:30 AM at the [facility] INR on discharge day 2.7 Follow up with METAL CONTROL COORDINATOR as an outpatient Follow up U/S of the pelvis in 1 month for the ruptured hemorrhagic right ovarian cyst Monitor CBC Continue peritoneal dialysis ceftazidime can be discontinued Medication Instructions: * Warfarin is a medicine prescribed to prevent blood clots * Warfarin will thin your blood and help prevent new clots * Take your medications exactly as directed * Never skip a dose. Never take a double dose. If you miss a dose, take it as soon as you remember * It is important for your doctor to monitor your prothrombin time (PT). This is a lab test * Keep your appointment for lab tests Risk of Adverse Drug Reactions and Interactions: * Warfarin increases your risk of bleeding * The food you eat and other medications you take can affect how Warfarin works in your body * Ask your doctor about daily aspirin therapy * It is very important to talk with your doctor about all of the other medicines , antibiotics, vitamins or herbal products that you are taking * All of your medication must be approved by your doctor, including new medicines, as well as medicines you have taken before you started taking Warfarin Diet: * In order for Warfarin to work properly, it is important to keep your intake of Vitamin K as consistent as possible * You should avoid any sudden change in Vitamin K intake * Report any significant changes in your diet or weight to your doctor . Avoid eating green vegetables Call your Primary Care doctor if you experience any of the following: * Swelling or Pain in your leg * Sudden, continuous pain deep in a muscle * Pain that worsens when you are active or when you stand still for a long time * Chest Pain * Sudden Shortness of Breath * Rapid or pounding heart beat * Fainting * Dizziness * Cough with blood or bloody sputum * Sweating more than normal * Bruises * Heavy or uncontrolled bleeding * Blood in your urine, stool or vomit * Black or tarry stools Caring for Your Self at Home: * Avoid sitting, standing or lying down for long periods without moving your legs and feet * When traveling by car, stop to get out and move around at least once every 3 hours * On long airplane, train or bus rides, get up and move around when possible * If you can't get up, wiggle your toes and tighten your calves to keep your blood moving Follow Up: It is important for you to keep your follow up appointments with your medical provider. Current Hospital Diet Patient's current hospital diet: Diabetes Type 2 Diet, Renal Diet Discharge Diet Recommended Diet: Renal Diet Pending Studies Studies pending at discharge: no Laboratory Results Hemoglobin A1c Test 01/23/17 04:25 Range/Units Estimated Average Glucose 97 mg/dl Hemoglobin A1c 5.0 4.5-5.6 % Medical Emergencies . Who to Call and When: Medical Emergencies: If at any time you feel your situation is an emergency, please call 911 immediately. . Non-Emergent Contact Non-Emergency issues call your: Primary Care Provider Call Non-Emergent contact if: you have any medication questions . . "Provider Documentation" section prepared by Ambreen Lutz. . VTE Core Measure Inpt VTE Proph given/why not?: Unfractionated heparin SQ, Other Anticoagulation Reason no anticoag overlap I/P: Contraindicated (bleeding) Reason no anticoag overlap @DC: Contraindicated (bleeding) Additional Copies To Adolph Aldridge M.D.
[2017-05-15] MEDS ORDERED: VNTHFA/IN INH (12:28)
[2017-05-15] MEDS ORDERED: LISI-725 PO (13:43)
[2017-05-15] MEDS ORDERED: CALC500C3 PO (13:50)
[2017-05-15] MEDS ORDERED: NRV/5 PO (15:17)
[2017-05-15] MEDS ORDERED: CRG125 PO (15:17)
[2017-05-15] MEDS ORDERED: BENZ100C7 PO (15:22)
[2017-05-15] MEDS ORDERED: FLUT0.15 NAE (15:33)
[2017-05-15] MEDS ORDERED: CALC0.5C17 PO (18:14)
[2017-05-15] MEDS ORDERED: MIRT30TA3 PO (19:24)
[2017-05-15] MEDS ORDERED: CALC667C4 PO ×2 (19:56→21:12)
[2017-05-15] MEDS ORDERED: TRAZ50TA35 PO (19:56)
[2017-05-15] MEDS ORDERED: LXP/20 PO (21:08)
[2017-05-15] MEDS ORDERED: FAMO40TA6 PO (23:12)
[2017-05-17] MEDS ORDERED: CRG25 PO (14:53)
[2017-05-21] MEDS ORDERED: APR25 PO (00:24)
[2017-05-21] MEDS ORDERED: APR50 PO (15:28)
[2017-05-21] MEDS ORDERED: ATV1 PO (15:28)
[2017-05-21] MEDS ORDERED: ativan PO (16:06)
== END 2017-04-24 13:05 | disposition home or self-care (01) | DRG 175 ==
LOC: C.EDB 09:58 → C.2T 15:35 → ENRESERV 16:30
PROVIDERS: ADMIT Internal Medicine; ATTEND Internal Medicine
PROC: 3E1M39Z Irrigation of Peritoneal Cavity using Dialysate, Percutaneous Approach (ICD-10-PCS; principal; 2017-04-17)
DX: I26.99 Other pulmonary embolism without acute cor pulmonale (principal); K66.1 Hemoperitoneum; K65.9 Peritonitis, unspecified; N18.6 End stage renal disease; I12.0 Hypertensive chronic kidney disease with stage 5 chronic kidney disease or end stage renal disease; Z94.0 Kidney transplant status; E83.39 Other disorders of phosphorus metabolism; N83.201 Unspecified ovarian cyst, right side; R42 Dizziness and giddiness; R19.7 Diarrhea, unspecified; E11.22 Type 2 diabetes mellitus with diabetic chronic kidney disease; D63.1 Anemia in chronic kidney disease; F17.210 Nicotine dependence, cigarettes, uncomplicated; F32.9 Major depressive disorder, single episode, unspecified; Z91.15 Patient's noncompliance with renal dialysis; Z83.2 Family history of diseases of the blood and blood-forming organs and certain disorders involving the immune mechanism; Z79.899 Other long term (current) drug therapy

== ENCOUNTER 2017-04-25 10:48 | Inpatient (IN) | payer OTHER ==
[~2017-04-25] VITALS: Ht 167.6 cm; Wt 81.6 kg
[~2017-04-25 10:48] MED LIST changes: +CMD/25 PO; -ONDA4TAB10 SL
[2017-04-25] MEDS ORDERED: SODIUM CHLORIDE 0.9% 500ML 500 ML IV STA ×2 (11:33→13:52)
--- NOTE | 2017-04-25 11:44 | EMERGENCY ROOM VISIT NOTE ---
History Report prepared by Katia: Radha Hylton Under the Supervision of: Dr. Kiko Gonzalez M.D. First contact with patient: 11:23 Chief Complaint: HYPERTENSION Stated Complaint: HIGH BLOOD PRESSURE PASSING OUT History of Present Illness The patient is a 31 year old female who presents to the Emergency Room with complaints of persistent hypotension that began today. She states that she recorded her blood pressure as 81/51 mmHg this morning and states that she called her PCP's office after. The patient states that she was instructed to come to the emergency department for further evaluation. She states that she is on Carvedilol, Norvasc, and Lisinopril for her hypertension. The patient denies any recent change in those medications. She states that she was just discharged from the hospital yesterday after being evaluated for a PE. The patient states that she was started on Warfarin, but denies taking the medication today. Today, the patient reports feeling lightheaded and dizzy, noting that she did experience a syncopal episode. The patient reports a decrease in appetite, but states that she has been keeping up on her fluids. She states that she receives dialysis and denies any recent change in dialysis. The patient reports a history of diabetes. Source of History: patient Onset: today Position: other (global) Symptom Intensity: 81/51 Quality: other (hypotension) Timing: other (persistent) Note: Associated Symptoms: lightheaded, dizzy, syncopal episode, decrease in appetite Review of Systems All systems have been listed, reviewed, and are negative other than those previously mentioned. Please see Additional Medical History Sheet. Past Medical & Surgical Medical Problems: (1) Anemia (2) CKD (chronic kidney disease) stage V requiring chronic dialysis (3) DM2 (diabetes mellitus, type 2) (4) Focal segmental glomerulosclerosis (5) FSGS (focal segmental glomerulosclerosis) (6) HTN (hypertension) (7) Migraine (8) Renal failure Surgical Problems: (1) H/O knee surgery (2) H/O tubal ligation (3) H/O: (4) Kidney transplant status, living related donor Social History Problems: (1) Kidney transplanted Family History Blood clots FATHER BROTHER Crohn's disease FATHER Diabetes mellitus MOTHER Hypertension SISTER Social History Smoking Status: Never Smoker Alcohol Use: none Drug Use: none Marital Status: in relationship Housing Status: lives with family, lives with significant other Occupation Status: employed, other Current/Historical Medications Scheduled Amlodipine Besylate (Amlodipine Besylate), 10 MG PO DAILY Calcitriol (Calcitriol), 2 CAP PO QAM Calcium Acetate (Phoslo 667 Mg), 4 CAP PO WM Calcium Acetate (Phoslo 667 Mg), 2 CAP PO WITH SNACKS Calcium Carbonate (Tums), 1,500 MG PO HS Carvedilol (Coreg), 6.25 MG PO BID Escitalopram Oxalate (Escitalopram Oxalate), 20 MG PO QAM Famotidine (Pepcid), 40 MG PO QAM Lisinopril (Lisinopril), 40 MG PO DAILY Mirtazapine (Remeron), 30 MG PO HS Trazodone Hcl (Trazodone), 50 MG PO HS Warfarin Sod (Coumadin), 1 TAB PO DAILY Scheduled PRN Albuterol Hfa (Ventolin Hfa), 2 PUFFS INH Q4H PRN for SOB/Wheezing Fluticasone Propionate (Nasal) (Flonase Allergy Relief), 2 SPRAYS FRED DAILY PRN for Nasal Congestion Allergies Coded Allergies: Cefaclor (Verified Allergy, Intermediate, Rash, 04/25/17) Reported by PT. Amoxicillin (Verified Adverse Reaction, Mild, VOMITING, 04/25/17) Clavulanic Acid (Verified Adverse Reaction, Mild, VOMITING, 04/25/17) Physical Exam Vital Signs Date Time Temp Pulse Resp B/P (MAP) Pulse Ox O2 Delivery O2 Flow Rate FiO2 04/25/17 14:01 82/47 04/25/17 13:26 75 71/44 04/25/17 13:15 71 04/25/17 13:06 98 Room Air 04/25/17 13:01 70 81/44 04/25/17 12:41 87/42 04/25/17 11:04 36.7 78 16 94/63 97 Room Air Physical Exam GENERAL: Patient awake, alert, oriented x 3. Patient follows commands. Patient does not appear toxic. Patient is adequately hydrated and well- nourished. SKIN: No erythema, pallor, cyanosis or rash HEENT: Normal head, pupils equal, reactive to light and accommodation. Ears normal. Oral cavity and posterior pharynx appear normal. Neck: Without adenopathy, no neck vein distention. LUNGS: Clear to auscultation. No wheezes, no rales, no rhonchi. HEART: No murmurs. No gallops. No rubs ABDOMEN: Catheter in left lower abdomen. No masses, no rebound, no hepatomegaly or splenomegaly. EXTREMITIES: No signs of trauma. No pedal or pretibial edema. No calf or thigh tenderness. NEUROLOGIC: Cranial nerves II-XII within normal limits. No gross motor sensory function deficits. Medical Decision & Procedures ER Provider Diagnostic Interpretation: X ray results are stated below per my interpretation and the radiologist's interpretation. CHEST ONE VIEW PORTABLE CLINICAL HISTORY: Hypotension. COMPARISON STUDY: Chest radiograph April 17, 2017. FINDINGS: Lung volumes are mildly diminished. There is no pneumothorax or pleural effusion. There is no consolidation to suggest pneumonia. Pulmonary vascularity is normal. Cardiomediastinal silhouette is normal. There are cholecystectomy clips. IMPRESSION: No acute cardiopulmonary findings. Electronically signed by: Sebastian Mcclain M.D. 04/25/2017 11:53 AM Dictated Date/Time: 04/25/2017 11:52 AM Laboratory Results 04/25/17 11:55 Red Blood Count 3.01, Mean Corpuscular Volume 92.7, Mean Corpuscular Hemoglobin 31.2, Mean Corpuscular Hemoglobin Concent 33.7, Mean Platelet Volume 10.0, Neutrophils (%) (Auto) 72.2, Lymphocytes (%) (Auto) 15.4, Monocytes (%) (Auto) 7.3, Eosinophils (%) (Auto) 4.3, Basophils (%) (Auto) 0.5, Neutrophils # (Auto) 4.55, Lymphocytes # (Auto) 0.97, Monocytes # (Auto) 0.46, Eosinophils # (Auto) 0.27, Basophils # (Auto) 0.03 04/25/17 11:55 Test 04/25/17 11:55 04/25/17 12:25 White Blood Count 6.30 K/uL (4.8-10.8) Red Blood Count 3.01 M/uL (4.2-5.4) Hemoglobin 9.4 g/dL (12.0-16.0) Hematocrit 27.9 % (37-47) Mean Corpuscular Volume 92.7 fL (80-100) Mean Corpuscular Hemoglobin 31.2 pg (25-34) Mean Corpuscular Hemoglobin Concent 33.7 g/dl (32-36) Platelet Count 174 K/uL (130-400) Mean Platelet Volume 10.0 fL (7.4-10.4) Neutrophils (%) (Auto) 72.2 % Lymphocytes (%) (Auto) 15.4 % Monocytes (%) (Auto) 7.3 % Eosinophils (%) (Auto) 4.3 % Basophils (%) (Auto) 0.5 % Neutrophils # (Auto) 4.55 K/uL (1.4-6.5) Lymphocytes # (Auto) 0.97 K/uL (1.2-3.4) Monocytes # (Auto) 0.46 K/uL (0.11-0.59) Eosinophils # (Auto) 0.27 K/uL (0-0.5) Basophils # (Auto) 0.03 K/uL (0-0.2) RDW Standard Deviation 54.9 fL (36.4-46.3) RDW Coefficient of Variation 16.1 % (11.5-14.5) Immature Granulocyte % (Auto) 0.3 % Immature Granulocyte # (Auto) 0.02 K/uL (0.00-0.02) Anion Gap 13.0 mmol/L (3-11) Estimated GFR () 2.6 Estimated GFR (Non- 2.3 BUN/Creatinine Ratio 2.7 (10-20) Calcium Level 9.4 mg/dl (8.5-10.1) Total Bilirubin 0.3 mg/dl (0.2-1) Aspartate Amino Transf (AST/SGOT) 12 U/L (15-37) Alanine Aminotransferase (ALT/SGPT) 13 U/L (12-78) Alkaline Phosphatase 93 U/L (45-117) Total Protein 7.4 gm/dl (6.4-8.2) Albumin 3.1 gm/dl (3.4-5.0) Globulin 4.3 gm/dl (2.5-4.0) Albumin/Globulin Ratio 0.7 (0.9-2) Prothrombin Time 22.4 SECONDS (9.0-12.0) Prothromb Time International Ratio 2.0 (0.9-1.1) Activated Partial Thromboplast Time 25.9 SECONDS (21.0-31.0) Partial Thromboplastin Ratio 1.0 Laboratory results as stated above per my review. Medications Administered Medications (Trade) Dose Ordered Sig/Sachin Route Start Time Stop Time Status Last Admin Dose Admin Sodium Chloride 500 ml @ 999 mls/hr Q31M STAT IV 04/25/17 11:33 04/25/17 12:03 DC 04/25/17 12:36 999 MLS/HR Sodium Chloride 500 ml @ 999 mls/hr Q31M STAT IV 04/25/17 13:52 04/25/17 14:22 DC 04/25/17 13:52 999 MLS/HR ECG Indication: other (hypotension) Rate (beats per minute): 78 Rhythm: normal sinus Findings: ST depression (V5 and V6), prolonged QT Comparison ECG Date: 04/17/17 Change: no significant change ED Course 1125: Past medical records reviewed. The patient was evaluated in room C2B. A complete history and physical examination was performed. 1133: Ordered Sodium Chloride 500 ml @ 999 mls/hr IV. 1230: I reevaluated the patient and her blood pressure has remained low. She feels okay and continues to receive fluids. 1351: I discussed the patients case with Rigo Levin. She is going to evaluate the patient for further treatment. 1352: Ordered Sodium Chloride 500 ml @ 999 mls/hr IV. 1420: I reevaluated the patient and she is resting. I discussed all the exam findings with her and I discussed the treatment plan. She verbalized complete understanding and agreement. She will be evaluated for further treatment. Medical Decision Nurses notes reviewed. Medical history sheet reviewed. Differential diagnosis includes but is not limited to: Orthostatic hypotension, dehydration, excessive dialysis, medication complication. Multiple labs, EKG and imaging were obtained. Please see above. The patient is normally hypertensive and is on multiple antihypertensives. The patient now is slightly anemic but no more so than from 1 day ago when she was discharged. The patient was given multiple 250 mL boluses to see if it would raise her blood pressure. Her blood pressure did respond slightly but she remained hypotensive. I asked the patient multiple times whether she accidentally took extra medication which she denied. I discussed care with the hospitalist service for further evaluation in the hospital. I also discussed care with the patient. Medication Reconcilliation Current Medication List: was personally reviewed by me Blood Pressure Screening Patient's blood pressure: Low blood pressure Consults Time Called: 1347 Consulting Physician: Rigo Levin Returned Call: 1351 I discussed the patients case with Rigo Levin. She is going to evaluate the patient for further treatment. Impression Primary Impression: Hypotension Scribe Attestation The scribe's documentation has been prepared under my direction and personally reviewed by me in its entirety. I confirm that the note above accurately reflects all work, treatment, procedures, and medical decision making performed by me. Departure Information Dispostion Being Evaluated By Hospitalist Adolph Landin M.D. (PCP)
--- NOTE | 2017-04-25 11:54 | DIAGNOSTIC IMAGING REPORT ---
CHEST ONE VIEW PORTABLE CLINICAL HISTORY: Hypotension. COMPARISON STUDY: Chest radiograph April 17, 2017. FINDINGS: Lung volumes are mildly diminished. There is no pneumothorax or pleural effusion. There is no consolidation to suggest pneumonia. Pulmonary vascularity is normal. Cardiomediastinal silhouette is normal. There are cholecystectomy clips. IMPRESSION: No acute cardiopulmonary findings. Electronically signed by: Sebastian Mcclain M.D. 04/25/2017 11:53 AM Dictated Date/Time: 04/25/2017 11:52 AM
[2017-04-25 12:16] LABS: BASO % 0.5 %; BASO ABS # 0.03 K/uL (0-0.2); COMPLETE YES; EOS % 4.3 %; HEMATOCRIT 27.9 % (37-47); IG% 0.3 %; LYMPH % 15.4 %; LYMPH ABS # 0.97 K/uL (1.2-3.4); MEAN CELL VOLUME 92.7 fL (80-100); MEAN CORPUSCULAR HEMOGLOBIN 31.2 pg (25-34); MEAN CORPUSCULAR HGB CONC 33.7 g/dl (32-36); MONO % 7.3 %; NEUT % 72.2 %; PLATELET COUNT 174 K/uL (130-400); RED BLOOD COUNT 3.01 M/uL (4.2-5.4)
[2017-04-25 12:45] LABS: PROTHROMBIN TIME (PATIENT) 22.4 SECONDS (9.0-12.0)
[2017-04-25 12:50] LABS: ALB/GLOB RATIO 0.7 (0.9-2); ALKALINE PHOSPHATASE 93 U/L (45-117); ALT/SGPT 13 U/L (12-78); AST/SGOT 12 U/L (15-37); BLOOD UREA NITROGEN 49 mg/dl (7-18); BUN/CREATININE RATIO 2.7 (10-20); CALCIUM 9.4 mg/dl (8.5-10.1); CARBON DIOXIDE 25 mmol/L (21-32); CHLORIDE 96 mmol/L (98-107); GLUCOSE 115 mg/dl (70-99); POTASSIUM 3.8 mmol/L (3.5-5.1); SODIUM 134 mmol/L (136-145)
[2017-04-25 14:15] VITALS: O2SAT 98; BMI 30.0
[2017-04-25 14:17] VITALS: Ht 167.6 cm; Wt 81.6 kg
[2017-04-25] MEDS ORDERED: ACETAMINOPHEN 325 MG TAB PO PRN (14:45)
[2017-04-25] MEDS ORDERED: CALCIUM ACETATE 667MG GELCAP PO PRN (15:00)
[2017-04-25] MEDS: SODIUM CHLORIDE 0.9% 1000ML 1,000 ML IV SCH ×2 (15:00→19:19)
--- NOTE | 2017-04-25 15:33 | History and Physical ---
History & Physical Date & Time of Service: Apr 25, 2017 ~ 14:15 Chief Complaint: Lightheadedness Primary Care Physician: Adolph Aldridge M.D. History of Present Illness 31 year old female who presents to the ER with lightheadedness. Patient was recently admitted to [facility] 04/17 - 04/24 for pulmonary embolism. Patient reports she was feeling well at the time of discharge. She started to feel lightheaded last night. She reports she walking back in to her house and she fell to the ground. She does not remember falling. She denies striking her head. She had a few more episodes similar to that since last night. She reports feeling very lightheaded with standing. She had one episode of vomiting last night. NO loss of bowel or bladder function. She denies headache and blurred vision. No associated chest pain or shortness of breath. She denies abdominal pain or diarrhea. No fever or chills. She denies urinary symptoms. In the ER, patient was found to be hypotensive at 71/44. BP is improving with IVF. Labs are unremarkable. Past Medical/Surgical History Medical Problems: (1) Anemia Status: Chronic (2) CKD (chronic kidney disease) stage V requiring chronic dialysis Status: Chronic (3) DM2 (diabetes mellitus, type 2) Status: Chronic (4) Focal segmental glomerulosclerosis Status: Chronic (5) FSGS (focal segmental glomerulosclerosis) Status: Chronic (6) HTN (hypertension) Status: Chronic (7) Migraine Status: Chronic (8) Peritoneal dialysis catheter in place Status: Chronic (9) Pulmonary embolism Status: Chronic (10) Renal failure Permanent Comment: She has ESRD but is super non complaint with Dialysis. has missed dialysis for more than 2 weeks. As a result has lot of biochemical indicators of missing Dialysis--very lot Hgb, very low Calcium and very high BUn and creatinine. Because her BUN and creat is so high she is at risk for Dysequlibrium syndrome. So to avoid that will have to slow incremental dialysis. Will do 2hrs today, low qb dialysis. tomorrow will be 3 hrs and then Saturday will be 4 hrs. She is c/o Pain at the CVC site but it looks fine on exam and the Imaging. Will know further with Dialysis. I am surprised that despite such low Ca++ she still looks fine and no Symptoms. Status: Chronic Surgical Problems: (1) H/O knee surgery Status: Chronic (2) H/O tubal ligation Status: Chronic (3) H/O: Status: Chronic (4) Kidney transplant status, living related donor Status: Chronic Social History Problems: (1) Kidney transplanted Status: Chronic Family History Blood clots FATHER BROTHER Crohn's disease FATHER Diabetes mellitus MOTHER Hypertension SISTER Social History Smoking Status: Current Every Day Smoker Alcohol Use: none Immunizations History of Influenza Vaccine: Yes Influenza Vaccine Date: May 05, 2016 History of Tetanus Vaccine?: Yes Tetanus Immunization Date: Oct 09, 2011 History of Pneumococcal: Yes Pneumococcal Date: Dec 05, 2006 History of Hepatitis B Vaccine: Yes Hepatitis Immunization Date: May 21, 1998 Multi-Drug Resistant Organisms History of MDRO: No Allergies Coded Allergies: Cefaclor (Verified Allergy, Intermediate, Rash, 04/25/17) Reported by PT. Amoxicillin (Verified Adverse Reaction, Mild, VOMITING, 04/25/17) Clavulanic Acid (Verified Adverse Reaction, Mild, VOMITING, 04/25/17) Home Medications Scheduled Calcitriol (Calcitriol), 2 CAP PO QAM Calcium Acetate (Phoslo 667 Mg), 4 CAP PO WM Calcium Acetate (Phoslo 667 Mg), 2 CAP PO WITH SNACKS Calcium Carbonate (Tums), 1,500 MG PO HS Carvedilol (Coreg), 6.25 MG PO BID Escitalopram Oxalate (Escitalopram Oxalate), 20 MG PO QAM Famotidine (Pepcid), 40 MG PO QAM Lisinopril (Prinivil), 20 MG PO DAILY Mirtazapine (Remeron), 30 MG PO HS Trazodone Hcl (Trazodone), 50 MG PO HS Warfarin Sod (Coumadin), 3 MG PO DAILY Scheduled PRN Albuterol Hfa (Ventolin Hfa), 2 PUFFS INH Q4H PRN for SOB/Wheezing Fluticasone Propionate (Nasal) (Flonase Allergy Relief), 2 SPRAYS FRED DAILY PRN for Nasal Congestion Review of Systems ROS per HPI, all other systems reviewed and negative Physical Exam Vital Signs Date Time Temp Pulse Resp B/P (MAP) Pulse Ox O2 Delivery O2 Flow Rate FiO2 04/25/17 14:44 89/49 04/25/17 14:15 98 Room Air 04/25/17 14:01 82/47 04/25/17 13:26 75 71/44 04/25/17 13:15 71 04/25/17 13:06 98 Room Air 04/25/17 13:01 70 81/44 04/25/17 12:41 87/42 04/25/17 11:04 36.7 78 16 94/63 97 Room Air General Appearance: no apparent distress Head: normocephalic Eyes: normal inspection ENT: hearing grossly normal Neck: supple, no JVD Respiratory/Chest: lungs clear, normal breath sounds, no respiratory distress Cardiovascular: regular rate, rhythm, no edema, normal peripheral pulses Abdomen/GI: normal bowel sounds, non tender, soft, + pertinent finding (PD catheter in place to left abdomen - no surrounding erythema or drainage) Extremities/Musculoskelatal: normal inspection, no calf tenderness Neurologic/Psych: no motor/sensory deficits, alert, normal mood/affect, oriented x 3 Skin: normal color, warm/dry Diagnostics Laboratory Results Results Past 24 Hours Test 04/25/17 11:55 04/25/17 12:25 Range/Units White Blood Count 6.30 4.8-10.8 K/uL Red Blood Count 3.01 4.2-5.4 M/uL Hemoglobin 9.4 12.0-16.0 g/dL Hematocrit 27.9 37-47 % Mean Corpuscular Volume 92.7 80-100 fL Mean Corpuscular Hemoglobin 31.2 25-34 pg Mean Corpuscular Hemoglobin Concent 33.7 32-36 g/dl Platelet Count 174 130-400 K/uL Mean Platelet Volume 10.0 7.4-10.4 fL Neutrophils (%) (Auto) 72.2 % Lymphocytes (%) (Auto) 15.4 % Monocytes (%) (Auto) 7.3 % Eosinophils (%) (Auto) 4.3 % Basophils (%) (Auto) 0.5 % Neutrophils # (Auto) 4.55 1.4-6.5 K/uL Lymphocytes # (Auto) 0.97 1.2-3.4 K/uL Monocytes # (Auto) 0.46 0.11-0.59 K/uL Eosinophils # (Auto) 0.27 0-0.5 K/uL Basophils # (Auto) 0.03 0-0.2 K/uL RDW Standard Deviation 54.9 36.4-46.3 fL RDW Coefficient of Variation 16.1 11.5-14.5 % Immature Granulocyte % (Auto) 0.3 % Immature Granulocyte # (Auto) 0.02 0.00-0.02 K/uL Sodium Level 134 136-145 mmol/L Potassium Level 3.8 3.5-5.1 mmol/L Chloride Level 96 98-107 mmol/L Carbon Dioxide Level 25 21-32 mmol/L Anion Gap 13.0 3-11 mmol/L Blood Urea Nitrogen 49 7-18 mg/dl Creatinine 18.00 0.60-1.20 mg/dl Estimated GFR () 2.6 Estimated GFR (Non- 2.3 BUN/Creatinine Ratio 2.7 10-20 Random Glucose 115 70-99 mg/dl Calcium Level 9.4 8.5-10.1 mg/dl Total Bilirubin 0.3 0.2-1 mg/dl Aspartate Amino Transf (AST/SGOT) 12 15-37 U/L Alanine Aminotransferase (ALT/SGPT) 13 12-78 U/L Alkaline Phosphatase 93 45-117 U/L Total Protein 7.4 6.4-8.2 gm/dl Albumin 3.1 3.4-5.0 gm/dl Globulin 4.3 2.5-4.0 gm/dl Albumin/Globulin Ratio 0.7 0.9-2 Prothrombin Time 22.4 9.0-12.0 SECONDS Prothromb Time International Ratio 2.0 0.9-1.1 Activated Partial Thromboplast Time 25.9 21.0-31.0 SECONDS Partial Thromboplastin Ratio 1.0 Diagnostic Radiology CXR IMPRESSION: No acute cardiopulmonary findings. Impression Assessment and Plan HYPOTENSION - admit to tele - patient presenting with lightheadedness and possible syncope; found to be hypotensive in the ED - case discussed with Dr. Jo who reports the patient used a dialysate at home that removes more fluid and she did not increase her fluid intake - hypotension and lightheadedness likely due to hypovolemia - labs unremarkable, no source of infection, hgb at baseline - will give 2L IVF, continue to monitor BPs and orthostatics - hold antihypertensives ESRD ON PD - PD as per nephro HX PE - on Coumadin with therapeutic INR DVT PROPHYLAXIS - on Coumadin with therapeutic INR DISPO - In my clinical judgment this beneficiary meets acute admission criteria, established by [facility], that includes being hospitalized through two midnights. Attending Addendum Pt was seen and examined. Agreed with Kayy LINDSAY assessment and plan. 31 year old female with PMH of ESRD on PD was discharged yesterday for PE. Pt came to the ER with C/O lightheadedness. Pt said that fell while walking. she said that continue to feel dizzy. Pt had PD done and she removed to much fluid by using the wrong PD bag. she said that she ran out of the PD bag that she was supposed to use according to her wt. in the ER she was found to be hypotensive with SBP in the 77. Denies any chest pain, palpitation, dizziness and SOB General- No acute distress Head- atraumatic Eyes- PERRL, EOMI ENT- oropharynx clear Neck- supple, no JVD Lungs- crackles Heart- regular rhythm Abdomen- normal bowel sounds, soft, nontender A/P HYPOTENSION - patient presenting with lightheadedness and possible syncope; found to be hypotensive in the ED - will give 2L IVF as per histotechnologist - continue to monitor BPs and orthostatics - hold antihypertensives - will monitor in tele Lab, imaging and EKG reviewed Please refer to Kayy LINDSAY documentation for other problems Ambreen Lutz MD Advanced Directives Existing Living Will: No Existing Power of Tugboat Engineer: No VTE Prophylaxis VTE Risk Assessment Done? Y/N: Yes Risk Level: Moderate Given or contraindicated: Warfarin (Coumadin)
[2017-04-25] MEDS ORDERED: PNEUMOCOCCAL POLYSACCHARIDES 25 MCG/0.5 ML VIAL/SYR IM. ONE (16:15)
[2017-04-25] MEDS ORDERED: PNEUMOCOCCAL ADMINISTRATION CHARGE ONE (16:15)
[2017-04-25 16:37] VITALS: BP 93/60; PULSE 78; TEMP 36.9; O2SAT 100
[2017-04-25] MEDS: CALCIUM ACETATE 667MG GELCAP PO SCH (17:34)
[2017-04-25] MEDS: WARFARIN SOD 2.5 MG TAB PO SCH (17:34)
[2017-04-25 19:12] VITALS: BP 80/42; PULSE 70; TEMP 37; O2SAT 99
[2017-04-25 20:00] VITALS: BP 80/42; PULSE 18; TEMP 37
[2017-04-25] MEDS ORDERED: TRAZODONE HCL 50 MG TAB PO SCH (21:00)
[2017-04-25] MEDS ORDERED: MIRTAZAPINE TAB 15 MG TAB PO SCH (21:00)
[2017-04-25] MEDS ORDERED: CALCIUM CARBONATE 500 MG CHEWABLE PO SCH (21:00)
[2017-04-25 22:42] VITALS: BP 100/64
[2017-04-26] VITALS (9 sets, daily range): BP systolic 97–114; BP diastolic 65–74; PULSE 68–79; TEMP 36.7–36.9; O2SAT 94–100
[2017-04-26 06:48] LABS: HEMATOCRIT 28.2 % (37-47); MEAN CELL VOLUME 95.3 fL (80-100); MEAN CORPUSCULAR HEMOGLOBIN 30.7 pg (25-34); MEAN CORPUSCULAR HGB CONC 32.3 g/dl (32-36); MEAN PLATELET VOLUME 9.5 fL (7.4-10.4); PLATELET COUNT 137 K/uL (130-400); RED BLOOD COUNT 2.96 M/uL (4.2-5.4); WHITE BLOOD COUNT 4.41 K/uL (4.8-10.8)
[2017-04-26 07:02] LABS: INR 1.8 (0.9-1.1); PROTHROMBIN TIME (PATIENT) 19.8 SECONDS (9.0-12.0)
[2017-04-26 07:35] LABS: BUN/CREATININE RATIO 2.6 (10-20); CALCIUM 9.6 mg/dl (8.5-10.1); POTASSIUM 3.5 mmol/L (3.5-5.1)
[2017-04-26] MEDS: CALCIUM ACETATE 667MG GELCAP PO SCH ×3 (08:13→16:42)
--- NOTE | 2017-04-26 08:14 | NEPHROLOGY CONSULTATION ---
DATE OF CONSULTATION: 04/25/2017 ATTENDING OF RECORD: Dr. Lutz. REASON FOR CONSULTATION: End-stage renal disease. HISTORY OF PRESENT ILLNESS: This is a 31-year-old female who is on peritoneal dialysis, which started this month at the [facility] dialysis unit. The patient was recently admitted from the to the with a diagnosis of pulmonary embolism as well as culture negative peritonitis. The patient was treated with Ceftaz intraperitoneally; however, infection cleared quickly and abdominal pain also improved, also the elevated white count from her peritoneal fluid may have been a consequence of a significant amount of blood in her peritoneal fluid. The patient went home and the following day was lightheaded and felt that she was going to pass out. In the ER, the patient's blood pressure was 71/44. The patient was given IV fluids and currently feeling better. 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 PAST SURGICAL HISTORY: Tubal ligation, , cholecystectomy, knee surgery, kidney transplant, PD catheter, tunnel dialysis catheter. FAMILY HISTORY: Significant for blood clots. SOCIAL HISTORY: Active smoker, no alcohol, no drugs. Lives at home. CURRENT MEDICATIONS: Lexapro 20 mg daily, Pepcid 40 mg daily, calcitriol 1 mcg daily, calcium carbonate 1500 mg at night, Remeron 30 mg at night, PhosLo four p.o. t.i.d. with meals and Coumadin 2.5 mg daily. REVIEW OF SYSTEMS: Positive lightheadedness. No more abdominal pain, no shortness of breath, no chest pain, no nausea, vomiting, no diarrhea or constipation. No dysuria. No headaches, no blurry vision, no difficulty swallowing. All other review of systems otherwise negative. PHYSICAL EXAMINATION: VITAL SIGNS: Temperature 37, pulse 70, respiratory rate is 18, blood pressure is 80/42. Satting 99% on room air. GENERAL: Awake, alert, oriented x3. EYES: No scleral icterus. ENT: Moist mucous membranes. NECK: Supple. PULMONARY: Clear to auscultation. CARDIAC: Regular rate and rhythm. ABDOMEN: Bowel sounds positive, soft, nontender. Positive PD catheter. EXTREMITIES: No clubbing, cyanosis or edema. NEUROLOGICALLY: Nonfocal. DERMATOLOGICAL: No rash or ulcers noted. LABORATORY DATA: White count 6, H&H 9.4 and 27.9, platelet count is 174. Sodium is 134, potassium 3.8, chloride is 96, bicarbonate is 25, BUN is 49, creatinine is 18, glucose 115; calcium is 9.4, albumin is 3.1. INR is 2. ASSESSMENT AND PLAN: 1. End-stage renal disease. The patient's creatinine has been ranging from the 15 to 18 range despite not getting adequate peritoneal dialysis. Will continue 6 exchanges overnight and being dry during the day. I do not feel that the patient has a peritonitis at this time and would not hesitate to give the patient more IV fluids if needed for his blood pressure. The patient was on a significant amount of blood pressure medications, which will need be titrated down to help improve his symptomatology. Hopefully, blood pressure trends back up as patient's volume status re-equilibrates. 2. Anemia of renal failure. Hemoglobin goal of 10 to 11. Will redose Procrit, accordingly. 3. Renal osteodystrophy. We will continuing her phosphate binders and calcitriol and will check phosphorus levels intermittently. MTDD
[2017-04-26] MEDS ORDERED: ESCITALOPRAM OXALATE 20 MG TAB PO SCH (09:00)
[2017-04-26] MEDS ORDERED: FAMOTIDINE 20 MG TAB PO SCH (09:00)
[2017-04-26] MEDS ORDERED: CALCITRIOL 0.25 MCG CAP PO SCH (09:00)
--- NOTE | 2017-04-26 10:16 | PROGRESS NOTE ---
DATE: 04/26/2017 DATE: 04/26/2017 SUBJECTIVE: Patient had peritoneal dialysis through cycler overnight without any issues. Blood pressure most recently is 110/74 with 98% on room air, pulse rate 79 per minute. She already walked in the hallways without getting lightheaded, no new symptoms. PHYSICAL EXAMINATION: VITAL SIGNS: Blood pressure is 110/74, 98% on room air, pulse rate 79 per minute, temperature 36.8. HEAD, EYES, EARS, NOSE, AND THROAT: Mucous membrane is moist. NECK: Supple. No jugular venous distention. CHEST: Bilateral clear to auscultation. CARDIOVASCULAR SYSTEM: S1 and S2, regular. ABDOMEN: Soft, nontender. EXTREMITIES: Shows no edema. LABORATORY TESTS: From this morning, hemoglobin is 9.1. WBC count 4.41. Platelet count 137. Sodium 138, potassium 3.5, creatinine is 17, BUN is 45. ASSESSMENT AND PLAN: 1. End-stage renal disease. 2. Orthostatic hypertension. 3. Hypotension. At this time, patient appears hemodynamically stable. She is a dialysis patient, so her blood pressure is almost entirely dictated by her fluid status. At this time she appears euvolemic. In the past, she was mostly hypervolemic causing hypertension. At this point as long as she continue with her dialysis, she can be managed without any blood pressure medicine. However, her outpatient followup as well as her dialysis has been very sketchy with very poor compliance with her medical treatment as well as dialysis. She definitely needs to see her peritoneal dialysis nurse and/or Dr. Jo after discharge within the next few days to further adjust her blood pressure medications and her peritoneal dialysis prescription. Do all 1.5 % exchanges tonight if Not discharged. MATTHEW
--- NOTE | 2017-04-26 16:33 | Progress Note ---
Medicine Progress Note Date & Time of Visit: Apr 26, 2017 at 16:12. Subjective Pt was seen and examined Lying in bed comfortable with no distress Pt said that she feels fine Denies any chest pain, palpitation, dizziness and SOB Objective Last 8 Hrs Date Time Temp Pulse Resp B/P (MAP) Pulse Ox O2 Delivery O2 Flow Rate FiO2 04/26/17 15:04 36.8 68 18 112/74 (87) 98 Room Air 04/26/17 12:12 36.9 73 18 114/73 (87) 100 Room Air 04/26/17 12:00 98 Room Air 04/26/17 10:22 36.8 79 18 110/74 (86) Physical Exam: General- No acute distress Head- atraumatic Eyes- PERRL, EOMI ENT- oropharynx clear Neck- supple, no JVD Lungs- clear to auscultation Heart- regular rhythm; Abdomen- normal bowel sounds, Extremities- no calf tenderness Neuro- alert, oriented x 3; PERRL, EOMI; no facial palsy Skin- warm & dry Laboratory Results: Last 24 Hours Test 04/25/17 16:42 04/25/17 20:25 04/26/17 06:25 Bedside Glucose 110 mg/dl 98 mg/dl White Blood Count 4.41 K/uL Red Blood Count 2.96 M/uL Hemoglobin 9.1 g/dL Hematocrit 28.2 % Mean Corpuscular Volume 95.3 fL Mean Corpuscular Hemoglobin 30.7 pg Mean Corpuscular Hemoglobin Concent 32.3 g/dl RDW Standard Deviation 55.8 fL RDW Coefficient of Variation 16.0 % Platelet Count 137 K/uL Mean Platelet Volume 9.5 fL Prothrombin Time 19.8 SECONDS Prothromb Time International Ratio 1.8 Sodium Level 138 mmol/L Potassium Level 3.5 mmol/L Chloride Level 101 mmol/L Carbon Dioxide Level 25 mmol/L Anion Gap 12.0 mmol/L Blood Urea Nitrogen 45 mg/dl Creatinine 17.00 mg/dl Est Creatinine Clear Calc Drug Dose 5.2 ml/min Estimated GFR () 2.8 Estimated GFR (Non- 2.4 BUN/Creatinine Ratio 2.6 Random Glucose 101 mg/dl Calcium Level 9.6 mg/dl Assessment & Plan HYPOTENSION Pt used the wrong PD bag at home that removes more fluid and she did not increase her fluid intake - hypotension and lightheadedness likely due to hypovolemia - lNo sign for infection - Received 2 L IVF - BP med was on hold - Case discussed with Dr. Chin that recommended to d/c Norvasc, decrease lisinopril to 20 mg and continue carvedilol for now - Advised pt to monitor BP and follow up with PCP ESRD ON PD - PD as per nephro HX PE - on Coumadin with therapeutic INR DVT PROPHYLAXIS - on Coumadin with therapeutic INR DISPOSITION Follow up appointment with your primary care provider Dr. Aldridge on Apr 30 @ 2: 55 PM Follow up with the coumadin clinic in [place] INR on discharge day 1.8 Follow up with CABLE REPAIRER as an outpatient Follow up U/S of the pelvis in 1 month for the ruptured hemorrhagic right ovarian cyst Monitor CBC Continue peritoneal dialysis Consultants: Nephrology Current Inpatient Medications: Current Inpatient Medications Medications (Trade) Dose Ordered Sig/Sachin Route Start Time Stop Time Status Last Admin Dose Admin Acetaminophen (Tylenol Tab) 650 mg Q4H PRN PO 04/25/17 14:45 05/25/17 14:44 Calcium Acetate (Phoslo Cap) 1,334 mg UD PRN PO 04/25/17 15:00 05/25/17 14:59 Calcium Acetate (Phoslo Cap) 2,668 mg TIDM PO 04/25/17 16:45 05/25/17 17:59 04/26/17 11:34 2,668 MG Calcium Carbonate (Tums Chew Tab) 1,500 mg HS PO 04/25/17 21:00 05/25/17 20:59 04/25/17 20:36 1,500 MG Escitalopram Oxalate (Lexapro Tab) 20 mg QAM PO 04/26/17 09:00 05/26/17 08:59 04/26/17 08:14 20 MG Famotidine (Pepcid Tab) 40 mg QAM PO 04/26/17 09:00 05/26/17 08:59 04/26/17 08:13 40 MG Mirtazapine (Remeron Tab) 30 mg HS PO 04/25/17 21:00 05/25/17 20:59 04/25/17 20:37 30 MG Trazodone HCl (Desyrel Tab) 50 mg HS PO 04/25/17 21:00 05/25/17 20:59 04/25/17 20:36 50 MG Warfarin Sodium (Coumadin Tab) 2.5 mg DAILY@1600 PO 04/25/17 16:00 05/25/17 15:59 04/25/17 17:34 2.5 MG Calcitriol (Rocaltrol Cap) 1 mcg QAM PO 04/26/17 09:00 05/26/17 08:59 04/26/17 08:12 1 MCG
[2017-04-26] MEDS ORDERED: LISI20TA3 PO (16:37)
[2017-04-26] MEDS ORDERED: CMD3 PO (16:37)
[2017-04-26] MEDS: WARFARIN SOD 2.5 MG TAB PO SCH (16:42)
--- NOTE | 2017-04-26 16:43 | Discharge Instructions ---
Discharge Instructions Date of Service Apr 26, 2017. Admission Reason for Admission: Hypotension Discharge Discharge Diagnosis / Problem: Hypotension, Recent PE, ESRD on PD Discharge Goals Goal(s): Decrease discomfort, Increase independence, Improve disease control Activity Recommendations Activity Limitations: resume your previous activity (as tolerated) . Instructions / Follow-Up Instructions / Follow-Up Follow up appointment with your primary care provider Dr. Aldridge on Apr 30 @ 2: 55 PM Follow up for your coumadin at the [facility] INR on discharge day 1.8 Follow up with MATERIALS MANAGEMENT MANAGER as an outpatient Follow up U/S of the pelvis in 1 month for the ruptured hemorrhagic right ovarian cyst Continue peritoneal dialysis Monitor blood pressure and bring blood pressure log at your next appointment with your PCP Coumadin increase to 3 mg daily Amlodipine discontinued Lisinopril decrease to 20 mg daily Current Hospital Diet Patient's current hospital diet: Renal Diet Discharge Diet Recommended Diet: Renal Diet Pending Studies Studies pending at discharge: no Medical Emergencies . Who to Call and When: Medical Emergencies: If at any time you feel your situation is an emergency, please call 911 immediately. . Non-Emergent Contact Non-Emergency issues call your: Primary Care Provider Call Non-Emergent contact if: you have any medication questions . . "Provider Documentation" section prepared by Ambreen Lutz. . VTE Core Measure Inpt VTE Proph given/why not?: Warfarin (Coumadin)
--- NOTE | 2017-04-28 17:19 | Discharge Summary ---
Discharge Summary Date of Service Apr 28, 2017. Discharge Summary Admission Date: Apr 25, 2017 at 14:44 Discharge Date: Apr 26, 2017 Discharge Disposition: Home Principal Diagnosis: Hypotension Secondary Diagnoses/Problems: Recent PE ESRD on PD Procedures: CHEST ONE VIEW PORTABLE CLINICAL HISTORY: Hypotension. COMPARISON STUDY: Chest radiograph April 17, 2017. FINDINGS: Lung volumes are mildly diminished. There is no pneumothorax or pleural effusion. There is no consolidation to suggest pneumonia. Pulmonary vascularity is normal. Cardiomediastinal silhouette is normal. There are cholecystectomy clips. IMPRESSION: No acute cardiopulmonary findings. Electronically signed by: Sebastian Mcclain M.D. 04/25/2017 11:53 AM Dictated Date/Time: 04/25/2017 11:52 AM Consultations: Nephrology Medication Reconciliation Changed Medications: Lisinopril (Prinivil) 20 Mg Tab 20 MG PO DAILY for 30 Days, #30 TAB (Changed from: Lisinopril 40 Mg Tab 40 Mg PO DAILY) Warfarin Sod (Coumadin) 3 Mg Tab 3 MG PO DAILY for 30 Days (Changed from: Warfarin Sod (Coumadin) 2.5 Mg Tab 1 Tab PO DAILY 30 Days #30 TAB Ref 0) Continued Medications: Albuterol Hfa (Ventolin Hfa) 200 Puffs/06951 Mcg Aers 2 PUFFS INH Q4H PRN for SOB/Wheezing, INHALER Calcitriol (Calcitriol) 0.5 Mcg Cap 2 CAP PO QAM, #60 Calcium Acetate (Phoslo 667 Mg) 667 Mg Cap 4 CAP PO WM, CAP TAKE 4 CAPSULES WITH MEALS Calcium Acetate (Phoslo 667 Mg) 667 Mg Cap 2 CAP PO WITH SNACKS, CAP TAKE 2 CAPSULES WITH SNACKS Calcium Carbonate (Tums) 500 Mg Chew 1500 MG PO HS Carvedilol (Coreg) 3.125 Mg Tab 6.25 MG PO BID TWO 3.125 MG TABLETS TWICE DAILY, PER PATIENT. Escitalopram Oxalate (Escitalopram Oxalate) 20 Mg Tab 20 MG PO QAM Famotidine (Pepcid) 40 Mg Tab 40 MG PO QAM, TAB Fluticasone Propionate (Nasal) (Flonase Allergy Relief) 50 Mcg/Act Spr 2 SPRAYS FRED DAILY PRN for Nasal Congestion Mirtazapine (Remeron) 30 Mg Tab 30 MG PO HS Trazodone Hcl (Trazodone) 50 Mg Tab 50 MG PO HS, TAB Discontinued Medications: Amlodipine Besylate (Amlodipine Besylate) 10 Mg Tab 10 MG PO DAILY Admission Information HPI (per Admitting provider): 31 year old female who presents to the ER with lightheadedness. Patient was recently admitted to [facility] 04/17 - 04/24 for pulmonary embolism. Patient reports she was feeling well at the time of discharge. She started to feel lightheaded last night. She reports she walking back in to her house and she fell to the ground. She does not remember falling. She denies striking her head. She had a few more episodes similar to that since last night. She reports feeling very lightheaded with standing. She had one episode of vomiting last night. NO loss of bowel or bladder function. She denies headache and blurred vision. No associated chest pain or shortness of breath. She denies abdominal pain or diarrhea. No fever or chills. She denies urinary symptoms. In the ER, patient was found to be hypotensive at 71/44. BP is improving with IVF. Labs are unremarkable. Physical Exam (per Admitting): General Appearance: no apparent distress Head: normocephalic Eyes: normal inspection ENT: hearing grossly normal Neck: supple, no JVD Respiratory/Chest: lungs clear, normal breath sounds, no respiratory distress Cardiovascular: regular rate, rhythm, no edema, normal peripheral pulses Abdomen/GI: normal bowel sounds, non tender, soft, + pertinent finding (PD catheter in place to left abdomen - no surrounding erythema or drainage) Extremities/Musculoskelatal: normal inspection, no calf tenderness Neurologic/Psych: no motor/sensory deficits, alert, normal mood/affect, oriented x 3 Skin: normal color, warm/dry Hospital Course HYPOTENSION Pt used the wrong PD bag at home that removes more fluid and she did not increase her fluid intake - hypotension and lightheadedness likely due to hypovolemia - lNo sign for infection - Received 2 L IVF - BP med was on hold - Case discussed with Dr. Chin that recommended to d/c [facility], decrease lisinopril to 20 mg and continue carvedilol for now - Advised pt to monitor BP and follow up with PCP ESRD ON PD - PD as per nephro HX PE - on Coumadin with therapeutic INR DVT PROPHYLAXIS - on Coumadin with therapeutic INR DISPOSITION Follow up appointment with your primary care provider Dr. Aldridge on Apr 30 @ 2: 55 PM Follow up with the coumadin clinic in [place] INR on discharge day 1.8 Follow up with HEMODIALYSIS PATIENT [facility]ARE SPECIALIST as an outpatient Follow up U/S of the pelvis in 1 month for the ruptured hemorrhagic right ovarian cyst Monitor CBC Continue peritoneal dialysis Total time spent on discharge = 35 minutes This includes examination of the patient, discharge planning, medication reconciliation, and communication with other providers. Discharge Instructions Discharge Instructions Date of Service Apr 26, 2017. Admission Reason for Admission: Hypotension Discharge Discharge Diagnosis / Problem: Hypotension, Recent PE, ESRD on PD Discharge Goals Goal(s): Decrease discomfort, Increase independence, Improve disease control Activity Recommendations Activity Limitations: resume your previous activity (as tolerated) . Instructions / Follow-Up Instructions / Follow-Up Follow up appointment with your primary care provider Dr. Aldridge on Apr 30 @ 2: 55 PM Follow up for your coumadin at the [facility] INR on discharge day 1.8 Follow up with HEMODIALYSIS PATIENT CARE SPECIALIST as an outpatient Follow up U/S of the pelvis in 1 month for the ruptured hemorrhagic right ovarian cyst Continue peritoneal dialysis Monitor blood pressure and bring blood pressure log at your next appointment with your PCP Coumadin increase to 3 mg daily Amlodipine discontinued Lisinopril decrease to 20 mg daily Current Hospital Diet Patient's current hospital diet: Renal Diet Discharge Diet Recommended Diet: Renal Diet Pending Studies Studies pending at discharge: no Medical Emergencies . Who to Call and When: Medical Emergencies: If at any time you feel your situation is an emergency, please call 911 immediately. . Non-Emergent Contact Non-Emergency issues call your: Primary Care Provider Call Non-Emergent contact if: you have any medication questions . . "Provider Documentation" section prepared by Ambreen Lutz. . VTE Core Measure Inpt VTE Proph given/why not?: Warfarin (Coumadin) Additional Copies To Adolph Aldridge M.D.
[2017-05-15] MEDS ORDERED: VNTHFA/IN INH (12:28)
[2017-05-15] MEDS ORDERED: LISI-725 PO (13:43)
[2017-05-15] MEDS ORDERED: CALC500C3 PO (13:50)
[2017-05-15] MEDS ORDERED: CRG125 PO (15:17)
[2017-05-15] MEDS ORDERED: NRV/5 PO (15:17)
[2017-05-15] MEDS ORDERED: BENZ100C7 PO (15:22)
[2017-05-15] MEDS ORDERED: FLUT0.15 NAE (15:33)
[2017-05-15] MEDS ORDERED: CALC0.5C17 PO (18:14)
[2017-05-15] MEDS ORDERED: MIRT30TA3 PO (19:24)
[2017-05-15] MEDS ORDERED: TRAZ50TA35 PO (19:56)
[2017-05-15] MEDS ORDERED: CALC667C4 PO ×2 (19:56→21:12)
[2017-05-15] MEDS ORDERED: LXP/20 PO (21:08)
[2017-05-15] MEDS ORDERED: FAMO40TA6 PO (23:12)
[2017-05-17] MEDS ORDERED: CRG25 PO (14:53)
[2017-05-21] MEDS ORDERED: APR25 PO (00:24)
[2017-05-21] MEDS ORDERED: ATV1 PO (15:28)
[2017-05-21] MEDS ORDERED: APR50 PO (15:28)
[2017-05-21] MEDS ORDERED: ativan PO (16:06)
== END 2017-04-26 18:13 | disposition home or self-care (01) | DRG 917 ==
LOC: C.EDB 10:49 → C.2T 14:44 → CANRESERV 15:11 → ENRESERV 15:11
PROVIDERS: ADMIT Internal Medicine; ATTEND Internal Medicine
DX: T50.3X1A Poisoning by electrolytic, caloric and water-balance agents, accidental (unintentional), initial encounter (principal); N18.6 End stage renal disease; I12.0 Hypertensive chronic kidney disease with stage 5 chronic kidney disease or end stage renal disease; Z94.0 Kidney transplant status; I95.1 Orthostatic hypotension; Z86.711 Personal history of pulmonary embolism; E86.1 Hypovolemia; Z99.2 Dependence on renal dialysis; E11.21 Type 2 diabetes mellitus with diabetic nephropathy; D63.1 Anemia in chronic kidney disease; Y92.019 Unspecified place in single-family (private) house as the place of occurrence of the external cause

== ENCOUNTER 2017-05-06 12:49 | Emergency (ER) | payer OTHER ==
[~2017-05-06] VITALS: Ht 167.6 cm; Wt 96.1 kg
[~2017-05-06 12:49] MED LIST changes: -CMD/25 PO; +CMD3 PO; +LISI20TA3 PO; -LSN40 PO; -NRV/10 PO
[2017-05-06 12:51] VITALS: TEMP 36.9; Ht 167.6 cm; Wt 96.1 kg
[2017-05-06] MEDS ORDERED: PRED10TA (13:42)
[2017-05-06] MEDS ORDERED: OPTIRAY 320 IV PRN (13:45)
--- NOTE | 2017-05-06 13:48 | DIAGNOSTIC IMAGING REPORT ---
CHEST ONE VIEW PORTABLE CLINICAL HISTORY: Atypical chest pain COMPARISON STUDY: 04/25/2017 FINDINGS: The heart is mildly enlarged. There is mild central vascular prominence without evidence of overt edema. There are no pleural effusions. There is no focal pulmonary consolidation[ IMPRESSION: Mild cardiomegaly. Mild central vascular prominence without evidence of overt edema Electronically signed by: Win Foster M.D. 05/06/2017 1:47 PM Dictated Date/Time: 05/06/2017 1:45 PM
--- NOTE | 2017-05-06 14:08 | EMERGENCY ROOM VISIT NOTE ---
History Report prepared by Katia: Fran Carbone Under the Supervision of: Dr. Shaun Cross M.D. First contact with patient: 12:57 Chief Complaint: ARM PAIN Stated Complaint: SWELLING IN L ARM AND PAIN History of Present Illness The patient is a 31 year old female who presents to the Emergency Room with complaints of constant left arm pain starting today that shoots from her shoulder down to her arm. She additionally states that she is having some left arm swelling, She denies any numbness. She additionally states that this pain is similar to the blood clots that she had a few weeks ago, and she states that she is now on warfarin. The patient states that she is on peritoneal dialysis, and she was at the dialysis clinic, and they told her to come here for evaluation. The patient additionally states that she has had some swelling around her eyes, and she was given prednisone. The patient states that her INR was last checked three days ago. The patient denies any shortness of breath or pain with deep inspiration. The patient states that she vomited two days ago after eating something bad, and afterwards she felt fine. She additionally states that she has had diarrhea, though this is chronic. The patient denies any urinary burning or hematochezia. She states that she does dialysis four times per day, and she still produces her own urine. Source of History: patient Onset: earlier today Position: shoulder (left), arm (left) Quality: other (shooting pain) Timing: constant Associated Symptoms: + vomiting, + diarrhea, No SOB, No hematochezia Note: Associated symptoms: swelling around her eyes. Review of Systems See HPI for pertinent positives and negatives. A total of ten systems were reviewed and were otherwise negative. Past Medical & Surgical Medical Problems: (1) Anemia (2) CKD (chronic kidney disease) stage V requiring chronic dialysis (3) DM2 (diabetes mellitus, type 2) (4) Focal segmental glomerulosclerosis (5) FSGS (focal segmental glomerulosclerosis) (6) HTN (hypertension) (7) Migraine (8) Peritoneal dialysis catheter in place (9) Pulmonary embolism (10) Renal failure Surgical Problems: (1) H/O knee surgery (2) H/O tubal ligation (3) H/O: (4) Kidney transplant status, living related donor Social History Problems: (1) Kidney transplanted Family History Blood clots FATHER BROTHER Crohn's disease FATHER Diabetes mellitus MOTHER Hypertension SISTER Social History Smoking Status: Current Every Day Smoker Alcohol Use: none Housing Status: lives with family, lives with significant other Current/Historical Medications Scheduled Calcitriol (Calcitriol), 2 CAP PO QAM Calcium Acetate (Phoslo 667 Mg), 4 CAP PO WM Calcium Acetate (Phoslo 667 Mg), 2 CAP PO WITH SNACKS Calcium Carbonate (Tums), 1,500 MG PO HS Carvedilol (Coreg), 6.25 MG PO BID Escitalopram Oxalate (Escitalopram Oxalate), 20 MG PO BID Famotidine (Pepcid), 40 MG PO QAM Lisinopril (Zestril), 20 MG PO BID Lisinopril (Lisinopril), 1 TAB PO BID Mirtazapine (Remeron), 30 MG PO HS Trazodone Hcl (Trazodone), 50 MG PO HS Warfarin Sod (Coumadin), 3 MG PO DAILY Scheduled PRN Albuterol Hfa (Ventolin Hfa), 2 PUFFS INH Q4H PRN for SOB/Wheezing Fluticasone Propionate (Nasal) (Flonase Allergy Relief), 2 SPRAYS FRED DAILY PRN for Nasal Congestion Miscellaneous Medications Prednisone (Prednisone) Allergies Coded Allergies: Cefaclor (Verified Allergy, Intermediate, Rash, 05/06/17) Reported by PT. Amoxicillin (Verified Adverse Reaction, Mild, VOMITING, 05/06/17) Clavulanic Acid (Verified Adverse Reaction, Mild, VOMITING, 05/06/17) Physical Exam Vital Signs Date Time Temp Pulse Resp B/P (MAP) Pulse Ox O2 Delivery O2 Flow Rate FiO2 05/06/17 18:52 102 18 177/144 100 Room Air 05/06/17 18:23 80 98 164/106 100 Room Air 05/06/17 17:43 80 05/06/17 17:14 97 Room Air 05/06/17 16:50 83 18 161/113 100 Room Air 05/06/17 14:52 82 171/105 100 Room Air 05/06/17 12:51 36.9 86 18 165/103 100 Room Air Physical Exam GENERAL: Awake, alert, well-appearing, in no distress HENT: Normocephalic, atraumatic. Oropharynx unremarkable. EYES: Normal conjunctiva. Sclera non-icteric. NECK: Mild tenderness in the left lateral aspect of the neck and supraclavicular area. Supple. No nuchal rigidity. FROM. No JVD. RESPIRATORY: Clear to auscultation. CARDIAC: Regular rate, normal rhythm. Extremities warm and well perfused. Pulses equal. ABDOMEN: Peritoneal catheter site is clean, dry, and intact. Soft, non- distended. No tenderness to palpation. No rebound or guarding. No masses. RECTAL: Deferred. MUSCULOSKELETAL: 1+ edema in the left upper extremity. AV fistula with strong palpable thrill. Distal pulse, motor, and sensory intact. Normal color and capillary refill. Chest examination reveals no tenderness. The back is symmetrical on inspection without obvious abnormality. There is no CVA tenderness to palpation. LOWER EXTREMITIES: Calves are equal size bilaterally and non-tender. No edema. No discoloration. NEURO: Normal sensorium. No sensory or motor deficits noted. SKIN: No rash or jaundice noted. Medical Decision & Procedures ER Provider Diagnostic Interpretation: Radiology results as stated below per my review and radiologist interpretation: CHEST ONE VIEW PORTABLE CLINICAL HISTORY: Atypical chest pain COMPARISON STUDY: 04/25/2017 FINDINGS: The heart is mildly enlarged. There is mild central vascular prominence without evidence of overt edema. There are no pleural effusions. There is no focal pulmonary consolidation[ IMPRESSION: Mild cardiomegaly. Mild central vascular prominence without evidence of overt edema Electronically signed by: Win Foster M.D. 05/06/2017 1:47 PM Dictated Date/Time: 05/06/2017 1:45 PM (CHEST FOR PE) ANGIO WITH CT DOSE: 470.82 mGy.cm HISTORY: Chest pain dyspnea TECHNIQUE: Multiaxial CT images of the chest were performed following the intravenous administration of contrast to evaluate the pulmonary arteries. Maximal intensity projection images were also obtained. A dose lowering technique was utilized adhering to the principles of ALARA. COMPARISON STUDY: 05/09/2009 FINDINGS: Thoracic aorta is unremarkable. Pulmonary vasculature enhances appropriately. There are no filling defects. Lungs are considered clear. There are very small bilateral pleural effusions. Patient developed an increase in what appears to be ascites versus dialysate in the upper abdomen. There is a history of peritoneal dialysis. Heart is mildly enlarged. This is unchanged in the prior exam. No significant pericardial effusion. IMPRESSION: 1. Study is negative for pulmonary embolus. 2. Trace pleural fluid both lung bases. 3. Lungs are considered clear. 4. Mild upper abdominal ascites versus dialysate from peritoneal dialysis The above report was generated using voice recognition software. It may contain grammatical, syntax or spelling errors. Electronically signed by: Adolph Rizo M.D. 05/06/2017 5:16 PM Dictated Date/Time: 05/06/2017 5:12 PM Laboratory Results 05/06/17 14:27 Red Blood Count 2.24, Mean Corpuscular Volume 92.4, Mean Corpuscular Hemoglobin 32.1, Mean Corpuscular Hemoglobin Concent 34.8, Mean Platelet Volume 10.0, Neutrophils (%) (Auto) 69.1, Lymphocytes (%) (Auto) 19.0, Monocytes (%) (Auto) 5.7, Eosinophils (%) (Auto) 5.4, Basophils (%) (Auto) 0.5, Neutrophils # (Auto) 2.54, Lymphocytes # (Auto) 0.70, Monocytes # (Auto) 0.21, Eosinophils # (Auto) 0.20, Basophils # (Auto) 0.02 05/06/17 14:27 Test 05/06/17 14:27 05/06/17 16:10 White Blood Count 3.68 K/uL (4.8-10.8) Red Blood Count 2.24 M/uL (4.2-5.4) Hemoglobin 7.2 g/dL (12.0-16.0) Hematocrit 20.7 % (37-47) Mean Corpuscular Volume 92.4 fL (80-100) Mean Corpuscular Hemoglobin 32.1 pg (25-34) Mean Corpuscular Hemoglobin Concent 34.8 g/dl (32-36) Platelet Count 119 K/uL (130-400) Mean Platelet Volume 10.0 fL (7.4-10.4) Neutrophils (%) (Auto) 69.1 % Lymphocytes (%) (Auto) 19.0 % Monocytes (%) (Auto) 5.7 % Eosinophils (%) (Auto) 5.4 % Basophils (%) (Auto) 0.5 % Neutrophils # (Auto) 2.54 K/uL (1.4-6.5) Lymphocytes # (Auto) 0.70 K/uL (1.2-3.4) Monocytes # (Auto) 0.21 K/uL (0.11-0.59) Eosinophils # (Auto) 0.20 K/uL (0-0.5) Basophils # (Auto) 0.02 K/uL (0-0.2) RDW Standard Deviation 51.9 fL (36.4-46.3) RDW Coefficient of Variation 15.3 % (11.5-14.5) Immature Granulocyte % (Auto) 0.3 % Immature Granulocyte # (Auto) 0.01 K/uL (0.00-0.02) Ovalocytes 1+ Anion Gap 11.0 mmol/L (3-11) Est Creatinine Clear Calc Drug Dose 5.3 ml/min Estimated GFR () 2.6 Estimated GFR (Non- 2.3 BUN/Creatinine Ratio 4.6 (10-20) Calcium Level 7.1 mg/dl (8.5-10.1) Troponin I 0.027 ng/ml (0-0.045) Human Chorionic Gonadotropin, Qual NEG (NEG) Prothrombin Time 10.9 SECONDS (9.0-12.0) Prothromb Time International Ratio 1.0 (0.9-1.1) Activated Partial Thromboplast Time 25.0 SECONDS (21.0-31.0) Partial Thromboplastin Ratio 1.0 Laboratory results reviewed by me Medications Administered Medications (Trade) Dose Ordered Sig/Sachin Route Start Time Stop Time Status Last Admin Dose Admin Fentanyl Citrate (Fentanyl Inj) 50 mcg NOW STAT IV 05/06/17 16:53 05/06/17 16:56 DC 05/06/17 17:13 50 MCG Hydralazine HCl (HydrALAZINE INJ) 10 mg NOW STAT IV. 05/06/17 18:15 05/06/17 18:18 DC 05/06/17 18:24 10 MG Epoetin Travis (Procrit Inj) 10,000 units NOW STAT SQ 05/06/17 18:15 05/06/17 18:18 DC 05/06/17 18:44 10,000 UNITS Metoclopramide HCl (Reglan Inj) 5 mg NOW STAT IV 05/06/17 18:17 05/06/17 18:18 DC 05/06/17 18:25 5 MG Procedure Ultrasound guided PIV Peripheral vein located in the right AC. Site was cleaned in sterile fashion and 20 gauge angiocatheter placed successfully under dynamic ultrasound guidance with good draw and flush. Unfortunately on securing of the line, the line was displaced. Subsequent attempts more proximally were unsuccessful x2. Third attempt more proximally was successful with 18 gauge angiocatheter.was placed successfully with good draw and flush. ECG Indication: other (arm swelling) Rate (beats per minute): 83 Rhythm: normal sinus Findings: no acute ischemic change, other (normal axis ) ED Course 1257: The patient was evaluated in room A4. A complete history and physical exam was performed. 1322: I revaluated the patient, and I discussed her renal disease. The patient does not believe she will ever regain her kidney function. Even though she does create some urine, she states that she will most likely be on dialysis for life. 1553: I reevaluated the patient, and I attempted to put in a PIV using guided ultrasound. 1640: After an unsuccessful initial PIV, I put in another successful PIV 1653: Fentanyl Inj 50mcg IV 1748: I talked with Dr. Rizo, Radiology, and he states that there was no obvious stenosis of the arterial vasculature. 1805: I discussed the patient's case with Dr. Jo, Nephrology, and he was worried that the patient's diastolic pressure was running high, so he recommended getting it under control with Hydralazine and putting her on Lisinopril 20mg BID. I discussed the PE study, and he agrees that we can stop the Coumadin. If H&H is still low, then he believes that it is due to renal failure and he recommended subcutaneous Procrit and for her to follow up. 1815: Procrit Inj [id number], Hydralazine Inj 10mg IV 1817: Reglan Inj 5mg IV Medical Decision I reviewed the patient's past medical history, medications, and the nursing notes as described above. Differential Diagnoses include: PE, subclavian steal, pneumonia, bronchitis, musculoskeletal strain, ACS. The patient is a 31-year-old woman with a past medical history of end-stage renal disease on peritoneal dialysis since she has returned to work but previously on hemodialysis with recent diagnosis in March of PE based on intermediate V/Q scan and pleuritic symptoms and was started on Coumadin presents to emergency Department with left shoulder and arm pain that started today per history of present illness. On exam the patient is in no acute distress, afebrile, hypertensive with diastolic blood pressure in the low 100s otherwise vital signs stable. On exam the patient has mild reproducible pain in the supraclavicular area extending to the shoulder. Otherwise the patient has mild swelling in the left upper extremity which she says is new however patient arm has normal color pulses,motor, and sensory. Left upper extremity AV fistula with strong palpable thrill. Considering the patient's vascular history PE refractory to treatment and subclavian steal considered. Thus after discussion with the patient and the fact that she reports that her renal disease has been determined to be a irreversible, I believe the benefits of the CT scan with contrast outweigh any risks. Patient agreeable. CT scan was done and was negative for PE and was additionally discussed with radiology noted that her scan was also negative for any subclavian stenosis or presence of collaterals that would suggest an arterial abnormality. Hbg 7.1 today which decreased from recent 8.4. EKG unremarkable and troponin negative in the setting of greater than 6 hours of constant symptoms. Labs otherwise unremarkable. Case was discussed with the patient's temporary receptionist doctor, Deysi, commented that his main concern was a place since diastolic blood pressure recommended blood pressure control in the ED hydralazine and then patient to begin taking her lisinopril twice a day. If blood pressure remains elevated patient may need to adjust her peritoneal dialysis to remove more fluid. Otherwise, believes that patient's anemia is likely in the setting of her end- stage renal disease, given the patient has no signs or findings of active bleeding and so recommends Procrit injection. Otherwise, regarding the patient' s question of recent PE, he agrees with discontinuing patient's Coumadin considering her diagnosis was obtained after an intermediate probability VQ scan in the setting of pleuritic symptoms. Moreover the patient's INR has never been therapeutic and therefore her negative CT scan today just that the patient did not have a prior PE. Findings and plan for follow-up with nephrology and her PCP d/w patient. Patient agreeable and d/c'd per discharge instructions. Medication Reconcilliation Current Medication List: was personally reviewed by me Blood Pressure Screening Patient's blood pressure: Elevated blood pressure Blood pressure disposition: Referred to PCP Consults Time Called: 1744 Consulting Physician: Dr. Rizo, Radiology Returned Call: [address] Rizo, Radiology, and he states that there was no obvious stenosis of the arterial vasculature. Additional Consults: Time Called: 1800 Consulted Physician: Dr. Jo, Nephrology Returned Call: 1804 Additional Comments: I discussed the patient's case with Dr. Jo, Nephrology, and he was worried that the patient's diastolic pressure was running high, so he recommended getting it under control with Hydralazine and putting her on Lisinopril 20mg BID. I discussed the PE study, and he agrees that we can stop the Coumadin. If H &H is still low, then he believes that it is due to renal failure and he recommended subcutaneous Procrit and for her to follow up. Impression Primary Impression: Chest pain Scribe Attestation The scribe's documentation has been prepared under my direction and personally reviewed by me in its entirety. I confirm that the note above accurately reflects all work, treatment, procedures, and medical decision making performed by me. Departure Information Dispostion Home / Self-Care Prescriptions Lisinopril (Lisinopril) 20 Mg Tab 1 TAB PO BID for 15 Days, #30 TABS Prov: Shaun Cross M.D. 05/06/17 Referrals Adolph Aldridge M.D. (PCP) Patient Instructions Chest Pain - [facility], ED Muscle Aching, ED Spasm Muscle, My [facility] Additional Instructions Please follow up with your primary care physician in the next 1-3 days as well as currently scheduled with your temporary receptionist, Dr. Jo, for re-evaluation and repeat lab tests. Your blood cells were lower than recently and so you were given a Procrit injection. Otherwise, your exam, lab results, and CT scan did not show signs of an emergent condition at this time. Your blood pressure was running higher than previous and so your temporary receptionist recommends you take your lisinopril 20 mg twice daily. Additionally, you may need to consider increased removal of fluid with peritoneal dialysis if her blood pressure remains elevated. Otherwise, your CT scan was negative for a pulmonary embolism and so given that your INR has never been therapeutic your temporary receptionist also agrees that we can stop your Coumadin at this time. Your shoulder and arm pain is likely muscle strain take acetaminophen for pain as needed. Apply a heating pad at 20 minute intervals throughout the day for additional pain relief and muscle relaxation. Return to the emergency department for worsening symptoms as described in the accompanying instructions.
[2017-05-06 15:09] LABS: HEMATOCRIT 20.7 % (37-47); MEAN CELL VOLUME 92.4 fL (80-100); MEAN CORPUSCULAR HEMOGLOBIN 32.1 pg (25-34); MEAN CORPUSCULAR HGB CONC 34.8 g/dl (32-36); PLATELET COUNT 119 K/uL (130-400); RED BLOOD COUNT 2.24 M/uL (4.2-5.4); WHITE BLOOD COUNT 3.68 K/uL (4.8-10.8)
[2017-05-06 15:11] LABS: PREG INTERNAL NEGATIVE QC NEG CLEAR BACKGROUND; PREG INTERNAL POSITIVE QC POS CONTROL LINE
[2017-05-06 15:27] LABS: BLOOD UREA NITROGEN 84 mg/dl (7-18); BUN/CREATININE RATIO 4.6 (10-20); CALCIUM 7.1 mg/dl (8.5-10.1); CARBON DIOXIDE 24 mmol/L (21-32); CHLORIDE 105 mmol/L (98-107); GLUCOSE 110 mg/dl (70-99); SODIUM 140 mmol/L (136-145)
[2017-05-06 15:29] LABS: BASO % 0.5 %; BASO ABS # 0.02 K/uL (0-0.2); COMPLETE YES; EOS % 5.4 %; IG% 0.3 %; MONO % 5.7 %; NEUT % 69.1 %; OVALOCYTES 1+
[2017-05-06 16:40] LABS: PROTHROMBIN TIME (PATIENT) 10.9 SECONDS (9.0-12.0)
[2017-05-06] MEDS ORDERED: FENTANYL CITRATE INJ 50 MCG/1 ML 2 ML VIAL IV STA (16:53)
[2017-05-06 17:14] VITALS: O2SAT 97
--- NOTE | 2017-05-06 17:17 | DIAGNOSTIC IMAGING REPORT ---
(CHEST FOR PE) ANGIO WITH CT DOSE: 470.82 mGy.cm HISTORY: Chest pain dyspnea TECHNIQUE: Multiaxial CT images of the chest were performed following the intravenous administration of contrast to evaluate the pulmonary arteries. Maximal intensity projection images were also obtained. A dose lowering technique was utilized adhering to the principles of ALARA. COMPARISON STUDY: 05/09/2009 FINDINGS: Thoracic aorta is unremarkable. Pulmonary vasculature enhances appropriately. There are no filling defects. Lungs are considered clear. There are very small bilateral pleural effusions. Patient developed an increase in what appears to be ascites versus dialysate in the upper abdomen. There is a history of peritoneal dialysis. Heart is mildly enlarged. This is unchanged in the prior exam. No significant pericardial effusion. IMPRESSION: 1. Study is negative for pulmonary embolus. 2. Trace pleural fluid both lung bases. 3. Lungs are considered clear. 4. Mild upper abdominal ascites versus dialysate from peritoneal dialysis The above report was generated using voice recognition software. It may contain grammatical, syntax or spelling errors. Electronically signed by: Adolph Rizo M.D. 05/06/2017 5:16 PM Dictated Date/Time: 05/06/2017 5:12 PM
[2017-05-06] MEDS ORDERED: EPOETIN ALFA 10,000 UNITS/ML VIAL SQ STA (18:15)
[2017-05-06] MEDS ORDERED: HydrALAZINE HCL 20 MG/ML VIAL IV. STA (18:15)
[2017-05-06] MEDS ORDERED: METOCLOPRAMIDE HCL INJ 5 MG/ML 2 ML VIAL IV STA (18:17)
[2017-05-06] MEDS ORDERED: LSN20 PO (18:39)
[2017-05-06 18:52] VITALS: BP 177/144; PULSE 102; O2SAT 100
[2017-05-15] MEDS ORDERED: VNTHFA/IN INH (12:28)
[2017-05-15] MEDS ORDERED: LISI-725 PO (13:43)
[2017-05-15] MEDS ORDERED: CALC500C3 PO (13:50)
[2017-05-15] MEDS ORDERED: NRV/5 PO (15:17)
[2017-05-15] MEDS ORDERED: CRG125 PO (15:17)
[2017-05-15] MEDS ORDERED: BENZ100C7 PO (15:22)
[2017-05-15] MEDS ORDERED: FLUT0.15 NAE (15:33)
[2017-05-15] MEDS ORDERED: CALC0.5C17 PO (18:14)
[2017-05-15] MEDS ORDERED: MIRT30TA3 PO (19:24)
[2017-05-15] MEDS ORDERED: TRAZ50TA35 PO (19:56)
[2017-05-15] MEDS ORDERED: CALC667C4 PO ×2 (19:56→21:12)
[2017-05-15] MEDS ORDERED: LXP/20 PO (21:08)
[2017-05-15] MEDS ORDERED: FAMO40TA6 PO (23:12)
[2017-05-17] MEDS ORDERED: CRG25 PO (14:53)
[2017-05-21] MEDS ORDERED: APR25 PO (00:24)
[2017-05-21] MEDS ORDERED: APR50 PO (15:28)
[2017-05-21] MEDS ORDERED: ATV1 PO (15:28)
[2017-05-21] MEDS ORDERED: ativan PO (16:06)
== END 2017-05-06 19:01 | disposition home or self-care (01) ==
LOC: C.EDB 12:50 → C.EDA 19:01
DX: R07.9 Chest pain, unspecified (principal); N18.6 End stage renal disease; Z86.718 Personal history of other venous thrombosis and embolism; Z79.01 Long term (current) use of anticoagulants; Z99.2 Dependence on renal dialysis; D64.9 Anemia, unspecified; E11.9 Type 2 diabetes mellitus without complications; I12.0 Hypertensive chronic kidney disease with stage 5 chronic kidney disease or end stage renal disease; G43.909 Migraine, unspecified, not intractable, without status migrainosus; Z86.711 Personal history of pulmonary embolism; Z94.0 Kidney transplant status; Z82.49 Family history of ischemic heart disease and other diseases of the circulatory system; Z83.79 Family history of other diseases of the digestive system; Z83.3 Family history of diabetes mellitus; F17.210 Nicotine dependence, cigarettes, uncomplicated; Z79.899 Other long term (current) drug therapy

== ENCOUNTER 2017-05-09 11:15 | Emergency (ER) | payer OTHER ==
[~2017-05-09] VITALS: Ht 167.6 cm; Wt 96.3 kg
[~2017-05-09 11:15] MED LIST changes: -LISI20TA3 PO; +LSN20 PO; +PRED10TA
[2017-05-09 11:20] VITALS: Ht 167.6 cm; Wt 96.3 kg
[2017-05-09] MEDS ORDERED: ALBUT/IPRATROP 3MG/0.5MG NEB 3 ML VIAL INH STA (12:13)
[2017-05-09] MEDS ORDERED: BENZONATATE 100MG CAP PO ONE (12:15)
--- NOTE | 2017-05-09 12:16 | EMERGENCY ROOM VISIT NOTE ---
History Report prepared by Katia: Javad Forbes Under the Supervision of: Dr. Taylor Rodarte D.O. First contact with patient: 12:05 Chief Complaint: RESPIRATORY PROBLEMS Stated Complaint: PROBLEMS BREATHING, DIZZY Nursing Triage Summary: pt reports having breathing problems for last couple days reports feeling dizzy and had to sleep sitting up last night History of Present Illness The patient is a 31 year old female who presents to the Emergency Room with complaints of respiratory problems that began a couple of days ago. She has a history of bronchitis and states that she feels similar to how she felt when she had it. However, she has not had it in a while. Her symptoms worsen while she lies flat, so she had to sleep upright last night. She is having a non- productive cough with rhinorrhea. She does not sleep under an open window or air conditioning unit. She also does not necessarily cough more at night or while lying down. She denies any fevers, or sore throat. The patient was given an albuterol inhaler to help her symptoms. She has a history of kidney failure for which she is on peritoneal dialysis. She notes that she is a smoker, but is working on quitting. She denies any history of heart problems. Review of EMR, recent echo with EF 60-65%. Source of History: patient Onset: a couple of days ago Position: other (Respiratory System) Symptom Intensity: moderate Quality: other (Shortness of breath) Timing: constant Modifying Factors (Worsening): rest (lying flat) Associated Symptoms: + cough, No fevers, No sorethroat Note: She is experiencing rhinorrhea as well. Review of Systems See HPI for pertinent positives & negatives. A total of 10 systems reviewed and were otherwise negative. Past Medical & Surgical Medical Problems: (1) Anemia (2) CKD (chronic kidney disease) stage V requiring chronic dialysis (3) DM2 (diabetes mellitus, type 2) (4) Focal segmental glomerulosclerosis (5) FSGS (focal segmental glomerulosclerosis) (6) HTN (hypertension) (7) Migraine (8) Peritoneal dialysis catheter in place (9) Pulmonary embolism (10) Renal failure Surgical Problems: (1) H/O knee surgery (2) H/O tubal ligation (3) H/O: (4) Kidney transplant status, living related donor Social History Problems: (1) Kidney transplanted Family History Blood clots FATHER BROTHER Crohn's disease FATHER Diabetes mellitus MOTHER Hypertension SISTER Social History Smoking Status: Current Every Day Smoker Alcohol Use: none Drug Use: none Housing Status: lives with family, lives with significant other Current/Historical Medications Scheduled Benzonatate (Tessalon Perles), 100 MG PO Q8 Calcitriol (Calcitriol), 2 CAP PO QAM Calcium Acetate (Phoslo 667 Mg), 4 CAP PO WM Calcium Acetate (Phoslo 667 Mg), 2 CAP PO WITH SNACKS Calcium Carbonate (Tums), 1,500 MG PO HS Carvedilol (Coreg), 6.25 MG PO BID Escitalopram Oxalate (Escitalopram Oxalate), 20 MG PO BID Famotidine (Pepcid), 40 MG PO QAM Lisinopril (Zestril), 20 MG PO BID Mirtazapine (Remeron), 30 MG PO HS Trazodone Hcl (Trazodone), 50 MG PO HS Scheduled PRN Albuterol Hfa (Ventolin Hfa), 2 PUFFS INH Q4H PRN for SOB/Wheezing Fluticasone Propionate (Nasal) (Flonase Allergy Relief), 2 SPRAYS FRED DAILY PRN for Nasal Congestion Miscellaneous Medications Prednisone (Prednisone) Allergies Coded Allergies: Cefaclor (Verified Allergy, Intermediate, Rash, 05/06/17) Reported by PT. Amoxicillin (Verified Adverse Reaction, Mild, VOMITING, 05/06/17) Clavulanic Acid (Verified Adverse Reaction, Mild, VOMITING, 05/06/17) Physical Exam Vital Signs Date Time Temp Pulse Resp B/P (MAP) Pulse Ox O2 Delivery O2 Flow Rate FiO2 05/09/17 14:30 37.1 97 16 158/111 99 05/09/17 14:01 97 16 158/111 Room Air 05/09/17 12:30 174/110 05/09/17 12:27 158/110 05/09/17 12:15 84 19 99 05/09/17 12:04 84 05/09/17 11:41 89 16 173/125 100 Room Air 05/09/17 11:29 173/125 05/09/17 11:20 37.1 90 18 169/106 100 Room Air Physical Exam GENERAL: alert, well appearing, well nourished, no distress, non-toxic EYE EXAM: normal conjunctiva, PERRL and EOM's grossly intact OROPHARYNX: no exudate, no erythema, lips, buccal mucosa, and tongue normal and mucous membranes are moist NECK: supple, no nuchal rigidity, no adenopathy, non-tender LUNGS: Mildly coarse breath sounds without wheezing, rhonchi, or rales. Normal chest wall mechanics HEART: no murmurs, S1 normal and S2 normal ABDOMEN: abdomen soft, non-tender, normo-active bowel sounds, no masses, no rebound or guarding. BACK: Back is symmetrical on inspection and there is no deformity, no midline tenderness, no CVA tenderness. SKIN: no rashes and no bruising UPPER EXTREMITIES: upper extremities are grossly normal. LOWER EXTREMITIES: No pitting edema. NEURO EXAM: Normal sensorium, cranial nerves II-XII grossly intact, normal speech, no gross weakness of arms, no gross weakness of legs. Medical Decision & Procedures ER Provider Diagnostic Interpretation: Radiology results have been interpreted by the radiologist and reviewed by me. CHEST 2 VIEWS ROUTINE CLINICAL HISTORY: Cough. COMPARISON STUDY: Chest radiograph and chest CT May 06, 2017. FINDINGS: There is no pneumothorax. No pleural effusion is identified. Moderate cardiomegaly is unchanged. Linear bilateral opacities favor atelectasis. There is pulmonary vascular congestion. IMPRESSION: 1. Pulmonary vascular congestion. 2. Linear bilateral opacities suggestive of atelectasis. Electronically signed by: Sebastian Mcclain M.D. 05/09/2017 12:55 PM Dictated Date/Time: 05/09/2017 12:54 PM Medications Administered Medications (Trade) Dose Ordered Sig/Sachin Route Start Time Stop Time Status Last Admin Dose Admin Albuterol/ Ipratropium (Duoneb) 3 ml NOW STAT INH 05/09/17 12:13 05/09/17 12:14 DC 05/09/17 12:26 3 ML Benzonatate (Tessalon Perles Cap) 100 mg NOW ONCE PO 05/09/17 12:15 05/09/17 12:17 DC 05/09/17 12:27 100 MG ED Course 1205: The patient was evaluated in room B2. A complete history and physical exam was performed. 1213: Ordered DuoNeb 3 ml INH 1215: Ordered Benzonatate 100 mg PO 1319: Upon reevaluation, the patient fells better. 1335: I spoke with Dr. Aldridge, the patient's PCP, at this time. They agree that we do not need to repeat the patient's labs. The patient has a follow up appointment with her jacker feeder tomorrow. They deny the need for antibiotics and recommends a MDI and a cough suppressant. 1400: Upon reevaluation, the patient is feeling better. I discussed the findings and the treatment plan with the patient. She verbalizes agreement and understanding. She was discharged home. Medical Decision Differential diagnosis: Etiologies such as infections, reactive airway disease, pneumonia, pneumothorax , COPD, CHF, cardiac ischemia, pulmonary embolism, musculoskeletal, gastrointestinal, as well as others were entertained. Pt likely with viral URI or allergic symptoms, no fever. Doubt pulmonary edema , no clinical evidence for CHF. Discussed with pt use of MDI/spacer, cough meds , f/u with nephrology as scheduled and f/u with PCP. Discussed sx to watch/ return for. Doubt acs, PE - pt with recent CT angio in the last 2-3 weeks to r/ o PE, none found. Discussed pt at length with PCP, agrees with no labs at this time, agrees unlikely cardiac origin or PE. Agrees no antibiotics at this time. Pt encouraged to continue efforts to quit smoking. Discussed sx to watch /return for, she verbalized understanding and was agreeable with plan. Medication Reconcilliation Current Medication List: was personally reviewed by me Blood Pressure Screening Patient's blood pressure: Elevated blood pressure Blood pressure disposition: Elevated BP felt to be situational Consults Time Called: 1330 Consulting Physician: Dr. Aldridge - PCP Returned Call: 1335 We discussed the patient's case. Please see the ED course for further information. Impression Primary Impression: Cough Additional Impression: URI (upper respiratory infection) Scribe Attestation The scribe's documentation has been prepared under my direction and personally reviewed by me in its entirety. I confirm that the note above accurately reflects all work, treatment, procedures, and medical decision making performed by me. Departure Information Dispostion Home / Self-Care Prescriptions Benzonatate (Tessalon Perles) 100 Mg Cap 100 MG PO Q8 for Cough, #20 CAP Prov: Taylor Rodarte, DO 05/09/17 Referrals Adolph Aldridge M.D. (PCP) Forms HOME CARE DOCUMENTATION FORM, IMPORTANT VISIT INFORMATION, WORK / SCHOOL INSTRUCTIONS Patient Instructions My [facility] Additional Instructions Please keep your appointment with your kidney doctor. Continue all your regular medicines and doing your dialysis nightly. You may use the inhaler with the spacer up to every 4 hours as needed. You may take the cough medicine as prescribed. If you have any worsening cough, develop trouble breathing, fevers, chest pain, notice blood in your sputum, or have any other concerns, please return to the emergency room. Problem Qualifiers Additional Impression: URI (upper respiratory infection) URI type: unspecified URI Qualified Codes: J06.9 - Acute upper respiratory infection, unspecified
--- NOTE | 2017-05-09 12:56 | DIAGNOSTIC IMAGING REPORT ---
CHEST 2 VIEWS ROUTINE CLINICAL HISTORY: Cough. COMPARISON STUDY: Chest radiograph and chest CT May 06, 2017. FINDINGS: There is no pneumothorax. No pleural effusion is identified. Moderate cardiomegaly is unchanged. Linear bilateral opacities favor atelectasis. There is pulmonary vascular congestion. IMPRESSION: 1. Pulmonary vascular congestion. 2. Linear bilateral opacities suggestive of atelectasis. Electronically signed by: Sebastian Mcclain M.D. 05/09/2017 12:55 PM Dictated Date/Time: 05/09/2017 12:54 PM
[2017-05-09] MEDS ORDERED: BENZ100C84 PO (14:21)
[2017-05-09 14:30] VITALS: BP 158/111; PULSE 97; TEMP 37.1; O2SAT 99
[2017-05-15] MEDS ORDERED: VNTHFA/IN INH (12:28)
[2017-05-15] MEDS ORDERED: LISI-725 PO (13:43)
[2017-05-15] MEDS ORDERED: CALC500C3 PO (13:50)
[2017-05-15] MEDS ORDERED: NRV/5 PO (15:17)
[2017-05-15] MEDS ORDERED: CRG125 PO (15:17)
[2017-05-15] MEDS ORDERED: BENZ100C7 PO (15:22)
[2017-05-15] MEDS ORDERED: FLUT0.15 NAE (15:33)
[2017-05-15] MEDS ORDERED: CALC0.5C17 PO (18:14)
[2017-05-15] MEDS ORDERED: MIRT30TA3 PO (19:24)
[2017-05-15] MEDS ORDERED: TRAZ50TA35 PO (19:56)
[2017-05-15] MEDS ORDERED: CALC667C4 PO ×2 (19:56→21:12)
[2017-05-15] MEDS ORDERED: LXP/20 PO (21:08)
[2017-05-15] MEDS ORDERED: FAMO40TA6 PO (23:12)
[2017-05-17] MEDS ORDERED: CRG25 PO (14:53)
[2017-05-21] MEDS ORDERED: APR25 PO (00:24)
[2017-05-21] MEDS ORDERED: APR50 PO (15:28)
[2017-05-21] MEDS ORDERED: ATV1 PO (15:28)
[2017-05-21] MEDS ORDERED: ativan PO (16:06)
== END 2017-05-09 14:30 | disposition home or self-care (01) ==
LOC: C.EDB 11:16
DX: R05 Cough (principal); J06.9 Acute upper respiratory infection, unspecified; D64.9 Anemia, unspecified; N18.4 Chronic kidney disease, stage 4 (severe); E11.9 Type 2 diabetes mellitus without complications; I10 Essential (primary) hypertension; N26.9 Renal sclerosis, unspecified; Z83.3 Family history of diabetes mellitus; Z82.49 Family history of ischemic heart disease and other diseases of the circulatory system; F17.200 Nicotine dependence, unspecified, uncomplicated

== ENCOUNTER 2017-05-15 13:53 | Inpatient (IN) | payer OTHER ==
[~2017-05-15] VITALS: Ht 167.6 cm; Wt 94.0 kg
[~2017-05-15 13:53] MED LIST changes: -APR25 PO; -APR50 PO; -ATV1 PO; -BENZ100C7 PO; -CALC0.5C17 PO; -CALC667C4 PO; -CRG125 PO; -CRG25 PO; -FAMO40TA6 PO; -FLUT0.15 NAE; -LXP/20 PO; -MIRT30TA3 PO; -NRV/5 PO; -TRAZ50TA35 PO; -ativan PO
--- NOTE | 2017-05-15 14:58 | EMERGENCY ROOM VISIT NOTE ---
History First contact with patient: 14:18 Chief Complaint: RESPIRATORY PROBLEMS Stated Complaint: PROBLEMS BREATHING Nursing Triage Summary: patient states she had an xray done this morning here and blood work and xray showed fluid in her lungs. At her Dr her pulse ox dropped to 84% while ambulating. History of Present Illness The patient is a 31 year old female who presents to the Emergency Room with complaints of shortness of breath on exertion. She states that her symptoms started for the past 1-2 weeks, however have gotten progressively worse over the past 3 days. She denies shortness of breath at rest, but states she gets very winded with any activities. She saw her PCP today, Dr. Aldridge, who did a chest x-ray and some blood work today and was concerned for congestive heart failure, so he told her to go to the ER to be admitted. Patient states while she was at the office they did an ambulatory sat, she states her pulse ox dropped to 84% during this time, and she was very short of breath. Patient states denies a history of congestive heart failure, she does note one time she had increased fluid in her lungs that she states was related to poor compliance with her peritoneal dialysis regimen. She states that she has been performing her dialysis as prescribed and has not missed any treatments. She does report some associated midsternal chest discomfort, as well as fatigue. She denies fevers, chills, dizziness or syncope, abdominal pain, back pain, dysuria or urinary frequency, rash. Review of Systems A complete 10 point review of systems was reviewed with the patient with pertinent positives and negatives as per history of present illness. All else were negative. Past Medical/Surgical History Medical Problems: (1) Anemia (2) CKD (chronic kidney disease) stage V requiring chronic dialysis (3) DM2 (diabetes mellitus, type 2) (4) Focal segmental glomerulosclerosis (5) FSGS (focal segmental glomerulosclerosis) (6) HTN (hypertension) (7) Migraine (8) Peritoneal dialysis catheter in place (9) Pulmonary embolism (10) Renal failure (11) Volume overload Surgical Problems: (1) H/O knee surgery (2) H/O tubal ligation (3) H/O: (4) Kidney transplant status, living related donor Social History Problems: (1) Kidney transplanted Family History Blood clots FATHER BROTHER Crohn's disease FATHER Diabetes mellitus MOTHER Hypertension SISTER Social History Smoking Status: Current Every Day Smoker Alcohol Use: none Drug Use: none Housing Status: lives with family, lives with significant other Current/Historical Medications Scheduled Amlodipine Besylate (Amlodipine Besylate), 5 MG PO DAILY Calcitriol (Calcitriol), 2 CAP PO QAM Calcium Acetate (Phoslo 667 Mg), 4 CAP PO WM Calcium Acetate (Phoslo 667 Mg), 2 CAP PO WITH SNACKS Calcium Carbonate (Tums), 1,500 MG PO HS Carvedilol (Carvedilol), 12.5 MG PO BID Escitalopram Oxalate (Escitalopram Oxalate), 20 MG PO DAILY Famotidine (Pepcid), 40 MG PO QAM Lisinopril (Zestril), 20 MG PO BID Mirtazapine (Remeron), 30 MG PO HS Trazodone Hcl (Trazodone), 50 MG PO HS Scheduled PRN Albuterol Hfa (Ventolin Hfa), 2 PUFFS INH Q4H PRN for SOB/Wheezing Benzonatate (Benzonatate), 100 MG PO Q8 PRN for Cough Fluticasone Propionate (Nasal) (Flonase Allergy Relief), 2 SPRAYS FRED DAILY PRN for Nasal Congestion Physical Exam Vital Signs Date Time Temp Pulse Resp B/P (MAP) Pulse Ox O2 Delivery O2 Flow Rate FiO2 05/15/17 15:23 96 Room Air 05/15/17 15:21 92 05/15/17 15:04 96 Room Air 05/15/17 15:00 91 20 166/115 96 Room Air 05/15/17 14:01 98 Room Air 05/15/17 14:01 36.6 96 20 165/117 98 Room Air Physical Exam CONSTITUTIONAL: No acute distress. Well appearing and well nourished. Alert and oriented X 4 with normal affect. HEENT: Normocephalic, atraumatic. Pupils equal, round and reactive to light, EOMI. TMs normal. Pharynx normal. NECK: Supple, full active range of motion without discomfort. RESPIRATORY: Bilateral bases are diminished with fine crackles, no wheezes, rhonchi or stridor heard. Equal expansion bilaterally. CARDIOVASCULAR: Regular rate and rhythm with no murmurs, rubs or gallops. Normal peripheral perfusion. No edema. GASTROINTESTINAL: Soft, nontender, nondistended. Bowel sounds present in all quadrants. Dialysis catheter noted on the left lower quadrant, intact, no erythema or drainage noted. MUSCULOSKELETAL: Full range of motion of all joints without discomfort. INTEGUMENTARY: No rash or other significant dermatologic conditions noted. NEUROLOGIC: Cranial nerves II-XII grossly intact. No focal neurologic deficits noted. Medical Decision & Procedures ER Provider Diagnostic Interpretation: CHEST 2 VIEWS ROUTINE CLINICAL HISTORY: DYS VERNON ON EXERTION R06.09 dyspnea COMPARISON STUDY: 05/09/2017 FINDINGS: Mild increase in pulmonary vasculature compared to the prior study. Mild cardiomegaly. Diaphragms smooth. IMPRESSION: Developing congestive heart failure. Laboratory Results 05/15/17 15:01 Test 05/15/17 15:01 05/15/17 15:38 Anion Gap 15.0 mmol/L (3-11) Est Creatinine Clear Calc Drug Dose 5.1 ml/min Estimated GFR () 2.5 Estimated GFR (Non- 2.1 BUN/Creatinine Ratio 5.2 (10-20) Calcium Level 6.4 mg/dl (8.5-10.1) Phosphorus Level 8.0 mg/dl (2.5-4.9) Magnesium Level 2.0 mg/dl (1.8-2.4) Total Bilirubin 0.3 mg/dl (0.2-1) Aspartate Amino Transf (AST/SGOT) 23 U/L (15-37) Alanine Aminotransferase (ALT/SGPT) 35 U/L (12-78) Alkaline Phosphatase 68 U/L (45-117) Troponin I 0.041 ng/ml (0-0.045) Total Protein 6.0 gm/dl (6.4-8.2) Albumin 2.5 gm/dl (3.4-5.0) Globulin 3.5 gm/dl (2.5-4.0) Albumin/Globulin Ratio 0.7 (0.9-2) ECG Indication: chest pain, SOB/dyspnea Rate (beats per minute): 91 Rhythm: normal sinus Findings: no acute ischemic change, prolonged QT, no ectopy Change: no significant change (05/06/2017, no acute changes noted.) Medical Decision CC: Patient presenting with complaint of shortness of breath with exertion Interpretation of Labs: No leukocytosis, markedly anemia but appears unchanged from previous labs, normal platelets, hypocalcemia, hyperphosphatemia, no other significant electrolyte abnormalities, significantly elevated BUN and creatinine consistent with patient's CKD, liver enzymes and lipase within normal limits, troponin level upper limits of normal, significantly elevated proBNP. Differential Diagnosis: Includes, but not limited to congestive heart failure, pleural effusion, pulmonary edema, fluid overload, electrolyte abnormality, ACS , poor compliance with peritoneal dialysis, among others. Medication Reconciliation: I attest that I have personally reviewed the patient' s current medication list. Vital signs review: I reviewed the patient's vital signs and interpret them as follows: T: Afebrile; BP: Hypertensive; HR: Tachycardic; RR: Within normal limits; Pulse Ox: Within normal limits on room air. Summary: Patient was evaluated at bedside, history of physical exam performed. Patient is alert and in no acute distress, resting calmly in the stretcher. Her skin does appear pale. She is noted to be hypertensive and slightly tachycardic on vital signs, she is in no acute respiratory distress and sats are 98% on room air. Lungs are diminished in the bases bilaterally with fine crackles. Chest x-ray from earlier today was reviewed, appears consistent with pulmonary edema and developing congestive heart failure. Labs reviewed from earlier today, notable for anemia with H/H of 7.2/22 (which does not appear to be new), and pro BNP level > 35,000. Additional orders were placed at bedside for CMP, magnesium, phosphorus, troponin, type and screen for possible transfusion, EKG to evaluate for chest pain. Patient discussed with Dr. Thomas, who agrees with my assessment and plan. Additional labs reviewed as above, significant kidney disease noted, however no life-threatening electrolyte abnormalities noted. I spoke with ANGÉLICA Levin for hospitalist service, who agrees to evaluate the patient for admission. Will defer to the inpatient team regarding fluid overload management, given patient's complexity with dialysis. Patient reassessed multiple times throughout ED stay, she remained in no distress and comfortable. She is asking for something to eat. Patient stable at time of admission. Medication Reconcilliation Current Medication List: was personally reviewed by me Blood Pressure Screening Patient's blood pressure: Elevated blood pressure Blood pressure disposition: Elevated BP felt to be situational Impression Primary Impression: Congestive heart failure Additional Impression: Anemia Departure Information Dispostion Admitted as an inpatient Condition FAIR Referrals Adolph Aldridge M.D. (PCP) Patient Instructions [facility] Problem Qualifiers Primary Impression: Congestive heart failure Congestive heart failure type: unspecified congestive heart failure type Congestive heart failure chronicity: acute Qualified Codes: I50.9 - Heart failure, unspecified Additional Impression: Anemia Anemia type: due to chronic kidney disease Chronic kidney disease stage: on chronic dialysis Qualified Codes: N18.6 - End stage renal disease; D63.1 - Anemia in chronic kidney disease; Z99.2 - Dependence on renal dialysis
[2017-05-15] MEDS ORDERED: NRV/5 PO ×2 (15:17)
[2017-05-15] MEDS ORDERED: CRG125 PO ×2 (15:17)
[2017-05-15] MEDS ORDERED: BENZ100C7 PO ×2 (15:22)
[2017-05-15 15:23] VITALS: O2SAT 96; Ht 167.6 cm; Wt 94.0 kg
[2017-05-15] MEDS ORDERED: FLUT0.15 NAE ×2 (15:33)
[2017-05-15] MEDS ORDERED: ONDANSETRON INJ 2 MG/ML 2 ML VIAL IV PRN (15:45)
[2017-05-15 15:46] LABS: ALB/GLOB RATIO 0.7 (0.9-2); BUN/CREATININE RATIO 5.2 (10-20); CALCIUM 6.4 mg/dl (8.5-10.1); POTASSIUM 4.4 mmol/L (3.5-5.1)
[2017-05-15] MEDS ORDERED: FUROSEMIDE INJ 80 MG in SYRINGE 0 ML IV ONE (16:05)
[2017-05-15 16:25] LABS: MEAN CELL VOLUME 94.8 fL (80-100); MEAN CORPUSCULAR HEMOGLOBIN 31.5 pg (25-34); MEAN CORPUSCULAR HGB CONC 33.2 g/dl (32-36); MEAN PLATELET VOLUME 9.4 fL (7.4-10.4); PLATELET COUNT 143 K/uL (130-400); RED BLOOD COUNT 2.32 M/uL (4.2-5.4); WHITE BLOOD COUNT 4.82 K/uL (4.8-10.8)
[2017-05-15] MEDS ORDERED: CALCIUM ACETATE 667MG GELCAP PO PRN (16:30)
[2017-05-15] MEDS: TRAMADOL HCL 50 MG TAB PO PRN (16:31)
[2017-05-15] MEDS: AMLODIPINE BESYLATE 5 MG TAB PO SCH (16:31)
[2017-05-15 17:11] VITALS: O2SAT 96
[2017-05-15 17:35] VITALS: BP 168/110; PULSE 89; TEMP 36.6; O2SAT 98
--- NOTE | 2017-05-15 17:44 | History and Physical ---
History & Physical Date & Time of Service: May 15, 2017 ~ 15:15 Chief Complaint: Problems Breathing Primary Care Physician: Adolph Aldridge M.D. History of Present Illness 31 year old female who presents to the ER with shortness of breath. Patient is well known to our service. Most recent admission to [facility] was 04/25 - 04/26 for hypotension in the setting of using the incorrect dialysate bags. At discharge, Norvasc was discontinued and lisinopril was decreased. Patient was seen in the clinic on 05/05 in the clinical for allergies and was given Prednisone. Was then seen in the ED on 05/06 for left arm pain. She underwent CTA chest that was negative for PE and therefore Coumadin was stopped. Patient was also found to be hypertensive. She received IV hydralazine and Lisinopril was increased. Patient was seen in the clinic on 05/08 for ED follow up and BP was controlled, no additional therapies were given. On 05/09 patient was seen un the ED again for shortness of breath and cough and was diagnosed with bronchitis and discharged on Berto dominguez. She was seen in the dialysis clinic on 05/10 and BP was elevated so carvedilol was increased and Norvasc was restarted. Patient was seen by her PCP today for worsening shortness of breath. Outpatient CXR showed congestion. She was also hypoxic with ambulation so she was referred to the ED for further evaluation. Patient reports increasing shortness of breath for the past week. She reports a non productive cough. She developed persistent midsternal chest pain two days ago. She describes the pain as sharp. Rates it #7/10 at its worst. Patient was to change to different dialysate bags to help with volume removal however she was unable to get them. She reports being compliant with her PD. She reports gaining 15kg in 10 days and feels as though her abdomen is more distended. She denies abdominal pain, nausea, or vomiting. She reports chronic diarrhea. No fever or chills. She denies lightheadedness, dizziness, diaphoresis, or syncopal events. She reports she continues to make urine. She denies any urinary symptoms. In the ED, patient is hemodynamically stable. Past Medical/Surgical History Medical Problems: (1) Anemia Status: Chronic (2) CKD (chronic kidney disease) stage V requiring chronic dialysis Status: Chronic (3) Diastolic CHF Permanent Comment: echo 04/18/17 - EF 60-65%, grade II diastolic dysfunction Status: Chronic (4) DM2 (diabetes mellitus, type 2) Status: Chronic (5) FSGS (focal segmental glomerulosclerosis) Status: Chronic (6) HTN (hypertension) Status: Chronic (7) Migraine Status: Chronic (8) Peritoneal dialysis catheter in place Status: Chronic (9) Pulmonary embolism Permanent Comment: found on VQ scan however follow up CTA chest was negative for PE therefore Coumadin was stoppped Status: Chronic Surgical Problems: (1) H/O knee surgery Status: Chronic (2) H/O tubal ligation Status: Chronic (3) H/O: Status: Chronic (4) Kidney transplant status, living related donor Status: Chronic Family History Blood clots FATHER BROTHER Crohn's disease FATHER Diabetes mellitus MOTHER Hypertension SISTER Social History Smoking Status: Current Every Day Smoker Alcohol Use: occasionally Immunizations History of Influenza Vaccine: Yes Influenza Vaccine Date: May 05, 2016 History of Tetanus Vaccine?: Yes Tetanus Immunization Date: Oct 09, 2011 History of Pneumococcal: Yes Pneumococcal Date: Dec 05, 2006 History of Hepatitis B Vaccine: Yes Hepatitis Immunization Date: May 21, 1998 Multi-Drug Resistant Organisms History of MDRO: No Allergies Coded Allergies: Cefaclor (Verified Allergy, Intermediate, Rash, 05/06/17) Reported by PT. Amoxicillin (Verified Adverse Reaction, Mild, VOMITING, 05/06/17) Clavulanic Acid (Verified Adverse Reaction, Mild, VOMITING, 05/06/17) Home Medications Scheduled Amlodipine Besylate (Amlodipine Besylate), 10 MG PO DAILY Calcitriol (Calcitriol), 2 CAP PO QAM Calcium Acetate (Phoslo 667 Mg), 3 CAP PO WM Calcium Acetate (Phoslo 667 Mg), 2 CAP PO WITH SNACKS Calcium Carbonate (Tums), 1,500 MG PO HS Carvedilol (Carvedilol), 12.5 MG PO BID Escitalopram Oxalate (Escitalopram Oxalate), 20 MG PO DAILY Famotidine (Pepcid), 40 MG PO QAM Lisinopril (Zestril), 20 MG PO BID Mirtazapine (Remeron), 30 MG PO HS Trazodone Hcl (Trazodone), 50 MG PO HS Scheduled PRN Albuterol Hfa (Ventolin Hfa), 2 PUFFS INH Q4H PRN for SOB/Wheezing Benzonatate (Benzonatate), 100 MG PO Q8 PRN for Cough Fluticasone Propionate (Nasal) (Flonase Allergy Relief), 2 SPRAYS FRED DAILY PRN for Nasal Congestion Review of Systems ROS per HPI, all other systems reviewed and negative Physical Exam Vital Signs Date Time Temp Pulse Resp B/P (MAP) Pulse Ox O2 Delivery O2 Flow Rate FiO2 05/15/17 15:23 96 Room Air 05/15/17 15:21 92 05/15/17 15:04 96 Room Air 05/15/17 15:00 91 20 166/115 96 Room Air 05/15/17 14:01 98 Room Air 05/15/17 14:01 36.6 96 20 165/117 98 Room Air General Appearance: no apparent distress Head: normocephalic Eyes: normal inspection, sclerae normal ENT: hearing grossly normal Neck: supple, no JVD Respiratory/Chest: no respiratory distress, + decreased breath sounds (BL, mid- bases ) Cardiovascular: regular rate, rhythm, no edema, normal peripheral pulses Abdomen/GI: normal bowel sounds, non tender, soft, + distended, + pertinent finding (PD cathter in place ) Extremities/Musculoskelatal: normal inspection, no calf tenderness, + pertinent finding (LUE fistula in place with palpable thrill) Neurologic/Psych: no motor/sensory deficits, alert, normal mood/affect, oriented x 3 Skin: normal color, warm/dry Diagnostics Laboratory Results Results Past 24 Hours Test 05/15/17 15:01 05/15/17 15:38 Range/Units Sodium Level 139 136-145 mmol/L Potassium Level 4.4 3.5-5.1 mmol/L Chloride Level 104 98-107 mmol/L Carbon Dioxide Level 20 21-32 mmol/L Anion Gap 15.0 3-11 mmol/L Blood Urea Nitrogen 99 7-18 mg/dl Creatinine 19.00 0.60-1.20 mg/dl Est Creatinine Clear Calc Drug Dose 5.1 ml/min Estimated GFR () 2.5 Estimated GFR (Non- 2.1 BUN/Creatinine Ratio 5.2 10-20 Random Glucose 82 70-99 mg/dl Calcium Level 6.4 8.5-10.1 mg/dl Phosphorus Level 8.0 2.5-4.9 mg/dl Magnesium Level 2.0 1.8-2.4 mg/dl Total Bilirubin 0.3 0.2-1 mg/dl Aspartate Amino Transf (AST/SGOT) 23 15-37 U/L Alanine Aminotransferase (ALT/SGPT) 35 12-78 U/L Alkaline Phosphatase 68 45-117 U/L Troponin I 0.041 0-0.045 ng/ml Total Protein 6.0 6.4-8.2 gm/dl Albumin 2.5 3.4-5.0 gm/dl Globulin 3.5 2.5-4.0 gm/dl Albumin/Globulin Ratio 0.7 0.9-2 White Blood Count 4.82 4.8-10.8 K/uL Red Blood Count 2.32 4.2-5.4 M/uL Hemoglobin 7.3 12.0-16.0 g/dL Hematocrit 22.0 37-47 % Mean Corpuscular Volume 94.8 80-100 fL Mean Corpuscular Hemoglobin 31.5 25-34 pg Mean Corpuscular Hemoglobin Concent 33.2 32-36 g/dl RDW Standard Deviation 56.5 36.4-46.3 fL RDW Coefficient of Variation 16.6 11.5-14.5 % Platelet Count 143 130-400 K/uL Mean Platelet Volume 9.4 7.4-10.4 fL Diagnostic Radiology CXR IMPRESSION: Developing congestive heart failure Impression Assessment and Plan VOLUME OVERLOAD IN THE SETTING OF ESRD ON PD AND DIASTOLIC CHF - admit to tele - patient presented to the outpatient setting today with worsening shortness of breath x 1 week, 15 kg weight gain, and was hypoxic with ambulation and CXR showed developing CHF - was sent to the ER for further evaluation - in the ED, patient saturating well on room air, BP stable - patient with history of non compliance and difficult to control BPs - suspect volume overload is multifactorial due to acute on chronic diastolic CHF due to recently uncontrolled BPs in the setting of ESRD and incorrect dialysate bag usage - echo 04/18/17 - EF 60-65%, grade II diastolic dysfunction - case discussed with Dr. Jo - since patient is currently hemodynamically stable, will give Lasix 80mg IV x 1 tonight and start HD tomorrow (patient has fistula in place) - 1500ml FR, daily weight CHEST PAIN - likely due to volume overload versus persistent coughing 2/2 recent bronchitis and continued smoking - EKG without acute ST changes, initial troponin negative - continue to cycle cardiac enzymes PROLONGED QTC - QTc 546 - for now will hold escitalopram, trazodone, and Remeron - consider resuming escitalopram at a lower dose - daily EKG - K+ and Mg+ WNL ANEMIA - chronic due to underlying CKD - baseline ~ 8 - 9, noted to be 7.2 today - likely dilutional in the setting of volume overload - recheck CBC in the morning, consider PRBC transfusion with HD HTN - uncontrolled - patient was to be on Norvasc 5mg however has been taking 10mg; will increase Coreg to 25mg BID; continue Lisinopril - BP should improve with volume removal - PRN hydralazine DEPRESSION - holding escitalopram, trazodone, and Remeron due to prolonged QTc - consider resuming escitalopram ar a lower dose DVT PROPHYLAXIS - SQ heparin DISPO - In my clinical judgment this beneficiary meets acute admission criteria, established by [facility], that includes being hospitalized through two midnights. ADDENDUM: I have seen and examined the patient and agree with the assessment and plan above with the exception that her chest pain is 2/2 her coughing from acute bronchitis and continued smoking. She reports insomnia from coughing for the past 3 nights. I am giving her Robitussin AC to help with this. Plan is for HD in am. She may need a blood transfusion tomorrow, also. Does not appear to have symptomatic anemia but that may be contributing. DO Adalberto Advanced Directives Existing Living Will: No Existing Power of Water Meter Installer: No VTE Prophylaxis VTE Risk Assessment Done? Y/N: Yes Risk Level: Moderate
[2017-05-15] MEDS ORDERED: CALC0.5C17 PO ×2 (18:14)
[2017-05-15] MEDS ORDERED: MIRT30TA3 PO ×2 (19:24)
[2017-05-15 19:25] VITALS: BP 160/107; PULSE 93; TEMP 36.7; O2SAT 96
[2017-05-15] MEDS: ACETAMINOPHEN 325 MG TAB PO PRN (19:30)
[2017-05-15] MEDS: HydrALAZINE HCL 20 MG/ML VIAL IV. PRN (19:31)
[2017-05-15] MEDS ORDERED: GUAIFENESIN/CODEINE 200MG/20MG 10ML UDC PO ONE (19:53)
[2017-05-15] MEDS ORDERED: TRAZ50TA35 PO ×2 (19:56)
[2017-05-15] MEDS ORDERED: CALC667C4 PO ×4 (19:56→21:12)
[2017-05-15] MEDS: CALCIUM ACETATE 667MG GELCAP PO SCH (19:59)
[2017-05-15] MEDS ORDERED: GUAIFENESIN/CODEINE 200MG/20MG 10ML UDC PO PRN (20:00)
[2017-05-15] MEDS: PROMETHAZINE HCL INJ 12.5 MG in SODIUM CHLORIDE 0.9% 50ML 50 ML IV PRN (20:24)
[2017-05-15] MEDS: CALCIUM CARBONATE 500 MG CHEWABLE PO SCH (21:06)
[2017-05-15] MEDS: LISINOPRIL 20 MG TAB PO SCH (21:07)
[2017-05-15] MEDS: CARVEDILOL 25 MG TAB PO SCH (21:07)
[2017-05-15] MEDS ORDERED: LXP/20 PO ×2 (21:08)
[2017-05-15] MEDS: HEPARIN SOD 5000 UNIT/0.5 ML CARP SQ SCH (21:10)
[2017-05-15 23:00] VITALS: BP 122/72; PULSE 78; TEMP 36.6; O2SAT 96
[2017-05-15] MEDS ORDERED: FAMO40TA6 PO ×2 (23:12)
[2017-05-15] MEDS ORDERED: LORAZEPAM INJ 0.5 MG in SYRINGE 0.25 ML IV PRN (23:30)
[2017-05-16] VITALS (21 sets, daily range): BP systolic 115–184; BP diastolic 69–111; PULSE 77–88; TEMP 36.6–37; O2SAT 95–97
[2017-05-16] MEDS: ACETAMINOPHEN 325 MG TAB PO PRN (00:16)
[2017-05-16] MEDS: LORAZEPAM 2 MG/ML 1 ML VIAL IV PRN ×4 (00:17→23:49)
[2017-05-16 00:42] LABS: URINE APPEARANCE CLEAR (CLEAR); URINE BILIRUBIN NEG (NEG); URINE COLOR YELLOW; URINE EPITHELIAL CELL AUTO >30 /lpf (0-5); URINE NITRITE NEG (NEG); URINE SPECIFIC GRAVITY 1.012 (1.000-1.030); UROBILINOGEN NEG (NEG); ZZUR CULT IF INDIC CLEAN CATCH YES
[2017-05-16 01:06] LABS: MANUAL MICROSCOPIC REQUIRED? NO; REVIEW REQ? NO; SULFASALICYLIC ACID POS (NEG)
[2017-05-16 04:11] LABS: BLOOD UREA NITROGEN 105 mg/dl (7-18); BUN/CREATININE RATIO 5.3 (10-20); CALCIUM 6.4 mg/dl (8.5-10.1); CARBON DIOXIDE 20 mmol/L (21-32); CHLORIDE 103 mmol/L (98-107); GLUCOSE 90 mg/dl (70-99); PHOSPHORUS 8.6 mg/dl (2.5-4.9); POTASSIUM 4.7 mmol/L (3.5-5.1); SODIUM 138 mmol/L (136-145)
[2017-05-16 04:14] LABS: HEMATOCRIT 21.1 % (37-47); MEAN CELL VOLUME 95.5 fL (80-100); MEAN CORPUSCULAR HEMOGLOBIN 29.9 pg (25-34); MEAN CORPUSCULAR HGB CONC 31.3 g/dl (32-36); MEAN PLATELET VOLUME 8.8 fL (7.4-10.4); PLATELET COUNT 120 K/uL (130-400); RED BLOOD COUNT 2.21 M/uL (4.2-5.4)
[2017-05-16] MEDS: HEPARIN SOD 5000 UNIT/0.5 ML CARP SQ SCH ×3 (05:14→20:54)
[2017-05-16] MEDS: TRAMADOL HCL 50 MG TAB PO PRN (05:22)
[2017-05-16] MEDS ORDERED: EPOETIN ALFA 10,000 UNITS/ML VIAL IV. SCH (06:00)
--- NOTE | 2017-05-16 06:56 | NEPHROLOGY CONSULTATION ---
DATE OF CONSULTATION: 05/16/2017 ATTENDING OF RECORD: Dr. Lutz. REASON FOR CONSULTATION: ESRD. HISTORY OF PRESENT ILLNESS: This is a 31-year-old female who has had multiple hospitalizations. The patient was recently in the hospital with a low blood pressure and at that time, I adjusted her blood pressure medications and now since being out of the hospital in the beginning of this month has been dealing with high blood pressure and volume overload. We have been adjusting the peritoneal dialysis bags. We went from yellows to greens and restarted the patient's Norvasc. The patient also has been dealing with bronchitis with cough and congestion. The patient was recently in the ER as well on May 06 with left arm pain and underwent a CT of the chest that was negative for PE. The patient was started on Coumadin during the previous admission with her family history of blood clots with the indeterminate VQ scan. With the CTA negative for PE, we determined to stop the Coumadin at that time. So over the past month since admission with hypotension, the patient's Coumadin has been stopped, blood pressure medicines have been increased and the type of PD bags have been changed from yellow to green to help with fluid removal. Despite that, the patient continued to increase weight. The patient tends to accumulate her fluid, mostly signs of facial fullness. We are attempting to switch her from greens to reds to help take fluid off; however, patient ran out of reds, so was just using all greens. The patient was at her doctor's office secondary to the high blood pressure and the increased weight gain, mostly facial fullness and abdominal distention, decided to come into the hospital. PAST MEDICAL HISTORY: Type 2 diabetes, FSGS, ESRD on peritoneal dialysis, diastolic heart failure with grade 2 diastolic dysfunction, hypertension; history of possible PE on VQ scan; however, CTA of the chest was negative for PE, so Coumadin was discontinued; anemia of end-stage renal disease. PAST SURGICAL HISTORY: PD catheter, fistula placement, kidney transplant which rejected, tubal ligation, and . FAMILY HISTORY: Significant for blood clots. SOCIAL HISTORY: Active smoker, occasional alcohol, no drugs. CURRENT MEDICATIONS: Pepcid 40 mg daily, calcitriol 1 mcg daily, heparin 5000 units subQ q. 8, Coreg 25 mg p.o. b.i.d., Tums 1500 mg p.o. at bedtime, lisinopril 20 mg p.o. b.i.d., PhosLo 3 p.o. t.i.d. with meals, Norvasc 10 mg a day. REVIEW OF SYSTEMS: Positive loose stools. Positive shortness of breath. Positive cough. No chest pain. No nausea, vomiting. Positive weight gain. No headaches. No rash. All other review of systems otherwise negative. PHYSICAL EXAMINATION: VITAL SIGNS: Temperature 36.9, pulse 81, respiratory rate 16, blood pressure 137/81, satting 95% on room air. GENERAL: Awake, alert, oriented x3. EYES: No scleral icterus. ENT: Positive facial fullness. NECK: Supple. PULMONARY: Clear to auscultation. CARDIAC: Regular rate and rhythm. ABDOMEN: Bowel sounds positive, soft. Positive PD catheter in place. EXTREMITIES: No clubbing, cyanosis or edema. NEUROLOGICALLY: Nonfocal. DERM: No rash or ulcers noted. LABORATORIES: White count is 4.1, hemoglobin level down to 6.6, platelet count 120. UA - pH is 8, occult blood 2+, wbc's 10-30. Sodium level is 138, potassium 4.7, chloride is 103, bicarb is 20, BUN is 105, creatinine is 20, glucose 90, calcium 6.4. Phos 8.6, mag is 2.0. Albumin is 2.5. Troponin 0.047. IMPRESSION AND PLAN: 1. End-stage renal disease. The patient on PD was accumulating fluid. The patient's BUN and creatinine are now up to 105 and 20. Would like to do daily hemodialysis to try to help improve clearance of toxins as well as to help remove fluid. Does have a fistula that is working. Will plan on dialysis today. 2. Anemia of renal failure, mostly thought to be low hemoglobin of 7.3, was dilutional, given the fact she was showing signs of fluid overload; however, this morning, hemoglobin levels now down to 6.6 questioning whether she is actively losing blood. Will give her Procrit today but will need 2 units of leukopoor-irradiated blood on dialysis. With serial H&H to follow the hemoglobin trend. 3. Hypertension: Blood pressure has been difficult to control as an outpatient; however, as an inpatient blood pressure has improved and is within normal range, increased her Coreg from 12.5 b.i.d. to 25 b.i.d., she has been on the Norvasc 10 mg a day for the past 3 days as well as has been on lisinopril 20 mg twice a day. I will continue this regimen. However, if the patient is actively bleeding, she may shows signs of hypotension. With her significant facial fullness. any attempt to remove fluid may result in low blood pressures. Perhaps will need to decrease the blood pressure medicines. Willl follow bp trends and adjust meds accordingly. I appreciate the consultation. MATTHEW
[2017-05-16] MEDS: CALCITRIOL 0.25 MCG CAP PO SCH (08:17)
[2017-05-16] MEDS: FAMOTIDINE 20 MG TAB PO SCH (08:18)
[2017-05-16] MEDS: CALCIUM ACETATE 667MG GELCAP PO SCH ×3 (08:18→16:22)
[2017-05-16] MEDS: LISINOPRIL 20 MG TAB PO SCH ×2 (08:19→20:55)
[2017-05-16] MEDS: CARVEDILOL 25 MG TAB PO SCH ×2 (08:19→20:55)
[2017-05-16] MEDS: AMLODIPINE BESYLATE 5 MG TAB PO SCH (08:19)
--- NOTE | 2017-05-16 13:37 | Progress Note ---
Internal Med Progress Note Date of Service: May 16, 2017. Provider Documentation: SUBJECTIVE: The patient was seen and examined Denies any more CP but very tired No abdominal pain,nausea and or vomiting OBJECTIVE: Vital Signs-as noted below Exam: General-no distress at rest Eyes-normal ENT-normal Neck-supple Lungs-clear to ausucltate bilaterally With decreased breath sound Heart-Regular Abdomen-benign,no masses,bowel sound presene Extremities-Trace edema bilaterally Neuro-AAOx3 Generally weak and lethargic Lab data as noted below. ASSESSMENT & PLAN: ANEMIA Likely due to CKD -Hb dropped to 6.6 on 05/16/17 -Will transfuse during Dialysis Uncontrolled HTN - patient was to be on Norvasc 5mg however has been taking 10mg; will increase Coreg to 25mg BID; continue Lisinopril -Coreg ,lisinopril and Norvasc doses have been increased -Will monitor VOLUME OVERLOAD IN THE SETTING OF ESRD ON PD AND DIASTOLIC CHF -Presented with worsening shortness of breath x 1 week, 15 kg weight gain, and was hypoxic with ambulation and CXR showed developing CHF - Patient with history of non compliance and difficult to control BPs - echo 04/18/17 - EF 60-65%, grade II diastolic dysfunction - The case was discussed with Dr. Jo - since patient is currently hemodynamically stable, will give Lasix 80mg IV x 1 tonight and start HD tomorrow (patient has fistula in place) - 1500ml FR, daily weight -Appreciate Nephrology input -Will have Dialysis today 05/16 CHEST PAIN -Likely secondary to Anemia and complicated by CHF -Doubt any ACS - EKG without acute ST changes, troponins are negative -Denies any more chest pain PROLONGED QTC - QTc 546 - for now will hold escitalopram, trazodone, and Remeron - consider resuming escitalopram at a lower dose DEPRESSION - holding escitalopram, trazodone, and Remeron due to prolonged QTc - consider resuming escitalopram ar a lower dose DVT PROPHYLAXIS - SQ heparin DISPO Likely discharge in a day or two Vital Signs: Date Time Temp Pulse Resp B/P (MAP) Pulse Ox O2 Delivery O2 Flow Rate FiO2 05/16/17 12:30 78 167/110 05/16/17 12:15 77 161/106 05/16/17 12:00 78 169/97 05/16/17 11:45 78 180/110 05/16/17 11:30 77 159/111 05/16/17 11:15 79 156/93 05/16/17 11:00 88 157/90 05/16/17 10:45 79 161/89 05/16/17 10:30 78 156/90 05/16/17 10:15 78 154/103 05/16/17 10:04 79 154/92 05/16/17 09:50 36.6 77 160/101 (120) 05/16/17 08:06 36.9 83 18 115/69 (84) 95 05/16/17 08:00 Room Air 05/16/17 04:36 36.9 81 16 137/81 (99) 95 Room Air 05/16/17 04:00 Room Air 05/15/17 23:59 Room Air 05/15/17 23:00 36.6 78 16 122/72 (89) 96 Room Air 05/15/17 20:00 Room Air 05/15/17 19:25 36.7 93 18 160/107 (124) 96 Room Air 05/15/17 17:35 36.6 89 18 168/110 (129) 98 Room Air 05/15/17 17:11 89 18 169/112 96 Room Air 05/15/17 16:29 89 18 171/112 96 Room Air 05/15/17 15:23 96 Room Air 05/15/17 15:21 92 05/15/17 15:04 96 Room Air 05/15/17 15:00 91 20 166/115 96 Room Air 05/15/17 14:01 98 Room Air 05/15/17 14:01 36.6 96 20 165/117 98 Room Air Lab Results: Results Past 24 Hours Test 05/15/17 15:01 05/15/17 15:38 05/15/17 21:00 05/16/17 00:25 Range/Units Sodium Level 139 136-145 mmol/L Potassium Level 4.4 3.5-5.1 mmol/L Chloride Level 104 98-107 mmol/L Carbon Dioxide Level 20 21-32 mmol/L Anion Gap 15.0 3-11 mmol/L Blood Urea Nitrogen 99 7-18 mg/dl Creatinine 19.00 0.60-1.20 mg/dl Est Creatinine Clear Calc Drug Dose 5.1 ml/min Estimated GFR () 2.5 Estimated GFR (Non- 2.1 BUN/Creatinine Ratio 5.2 10-20 Random Glucose 82 70-99 mg/dl Calcium Level 6.4 8.5-10.1 mg/dl Phosphorus Level 8.0 2.5-4.9 mg/dl Magnesium Level 2.0 1.8-2.4 mg/dl Total Bilirubin 0.3 0.2-1 mg/dl Aspartate Amino Transf (AST/SGOT) 23 15-37 U/L Alanine Aminotransferase (ALT/SGPT) 35 12-78 U/L Alkaline Phosphatase 68 45-117 U/L Troponin I 0.041 0.044 0-0.045 ng/ml Total Protein 6.0 6.4-8.2 gm/dl Albumin 2.5 3.4-5.0 gm/dl Globulin 3.5 2.5-4.0 gm/dl Albumin/Globulin Ratio 0.7 0.9-2 White Blood Count 4.82 4.8-10.8 K/uL Red Blood Count 2.32 4.2-5.4 M/uL Hemoglobin 7.3 12.0-16.0 g/dL Hematocrit 22.0 37-47 % Mean Corpuscular Volume 94.8 80-100 fL Mean Corpuscular Hemoglobin 31.5 25-34 pg Mean Corpuscular Hemoglobin Concent 33.2 32-36 g/dl RDW Standard Deviation 56.5 36.4-46.3 fL RDW Coefficient of Variation 16.6 11.5-14.5 % Platelet Count 143 130-400 K/uL Mean Platelet Volume 9.4 7.4-10.4 fL Creatine Kinase MB 1.3 0.5-3.6 ng/ml Creatine Kinase MB Ratio 0-3.0 Urine Color YELLOW Urine Appearance CLEAR CLEAR Urine pH 8.0 4.5-7.5 Urine Specific [place] 1.012 1.000-1.030 Urine Protein 1+ NEG Urine Glucose (UA) TRACE NEG Urine Ketones NEG NEG Urine Occult Blood 2+ NEG Urine Nitrite NEG NEG Urine Bilirubin NEG NEG Urine Urobilinogen NEG NEG Urine Leukocyte Esterase NEG NEG Urine WBC (Auto) 10-30 0-5 /hpf Urine RBC (Auto) 0-4 0-4 /hpf Urine Hyaline Casts (Auto) 0 0-5 /lpf Urine Epithelial Cells (Auto) >30 0-5 /lpf Urine Bacteria (Auto) 1+ NEG Test 05/16/17 03:00 Range/Units White Blood Count 4.10 4.8-10.8 K/uL Red Blood Count 2.21 4.2-5.4 M/uL Hemoglobin 6.6 12.0-16.0 g/dL Hematocrit 21.1 37-47 % Mean Corpuscular Volume 95.5 80-100 fL Mean Corpuscular Hemoglobin 29.9 25-34 pg Mean Corpuscular Hemoglobin Concent 31.3 32-36 g/dl RDW Standard Deviation 57.6 36.4-46.3 fL RDW Coefficient of Variation 16.6 11.5-14.5 % Platelet Count 120 130-400 K/uL Mean Platelet Volume 8.8 7.4-10.4 fL Sodium Level 138 136-145 mmol/L Potassium Level 4.7 3.5-5.1 mmol/L Chloride Level 103 98-107 mmol/L Carbon Dioxide Level 20 21-32 mmol/L Anion Gap 15.0 3-11 mmol/L Blood Urea Nitrogen 105 7-18 mg/dl Creatinine 20.00 0.60-1.20 mg/dl Est Creatinine Clear Calc Drug Dose 4.8 ml/min Estimated GFR () 2.3 Estimated GFR (Non- 2.0 BUN/Creatinine Ratio 5.3 10-20 Random Glucose 90 70-99 mg/dl Calcium Level 6.4 8.5-10.1 mg/dl Phosphorus Level 8.6 2.5-4.9 mg/dl Magnesium Level 2.0 1.8-2.4 mg/dl Creatine Kinase MB 1.6 0.5-3.6 ng/ml Creatine Kinase MB Ratio 0-3.0 Troponin I 0.047 0-0.045 ng/ml Microbiology Results 05/16/17 Urine Culture, Received Pending
[2017-05-16] MEDS: HydrALAZINE HCL 20 MG/ML VIAL IV. PRN (16:21)
[2017-05-16] MEDS: CALCIUM CARBONATE 500 MG CHEWABLE PO SCH (20:55)
[2017-05-16] MEDS: PROMETHAZINE HCL INJ 12.5 MG in SODIUM CHLORIDE 0.9% 50ML 50 ML IV PRN (21:38)
[2017-05-17] VITALS (19 sets, daily range): BP systolic 145–173; BP diastolic 42–117; PULSE 62–89; TEMP 36.6–37; O2SAT 96–97
[2017-05-17] MEDS: HydrALAZINE HCL 20 MG/ML VIAL IV. PRN (04:36)
[2017-05-17] MEDS: HEPARIN SOD 5000 UNIT/0.5 ML CARP SQ SCH ×2 (04:42→13:42)
[2017-05-17] MEDS: PROMETHAZINE HCL INJ 12.5 MG in SODIUM CHLORIDE 0.9% 50ML 50 ML IV PRN (05:36)
[2017-05-17] MEDS: TRAMADOL HCL 50 MG TAB PO PRN (05:42)
[2017-05-17] MEDS: CALCIUM ACETATE 667MG GELCAP PO SCH ×2 (07:30→11:30)
--- NOTE | 2017-05-17 07:34 | Nephrology Progress Note ---
Nephrology Progress Note Date of Service: May 17, 2017. Subjective 31 yo female with ESRD on pd as an outpt who was having issues with hypertension and volume overload. also found to have significant anemia and had bp meds increased, had dialysis yesterday and blood transfusion on dialysis. pt with nausea this morning. Objective Date Time Temp Pulse Resp B/P (MAP) Pulse Ox O2 Delivery O2 Flow Rate FiO2 05/17/17 05:00 160/98 (118) 05/17/17 04:00 Room Air 05/17/17 04:00 36.6 85 16 173/117 (135) 96 Room Air 05/16/17 23:59 Room Air 05/16/17 23:00 36.6 79 21 154/85 (108) 97 Room Air 05/16/17 22:30 157/95 (115) 05/16/17 20:00 Room Air 05/16/17 18:58 36.9 88 16 172/109 (130) 95 Room Air 05/16/17 16:00 Room Air 05/16/17 15:13 36.8 79 18 168/105 (126) 97 Room Air 05/16/17 13:10 37.0 78 184/107 (132) 05/16/17 13:00 77 174/98 05/16/17 12:45 79 166/101 05/16/17 12:30 78 167/110 05/16/17 12:15 77 161/106 05/16/17 12:00 78 169/97 05/16/17 11:45 78 180/110 05/16/17 11:30 77 159/111 05/16/17 11:15 79 156/93 05/16/17 11:00 88 157/90 05/16/17 10:45 79 161/89 05/16/17 10:30 78 156/90 05/16/17 10:15 78 154/103 05/16/17 10:04 79 154/92 05/16/17 09:50 36.6 77 160/101 (120) 05/16/17 08:06 36.9 83 18 115/69 (84) 95 05/16/17 08:00 Room Air Physical Exam: General-aaox3, obese Eyes-no scleral icterus ENT-mmm Neck-supple Lungs-cta Heart-rrr Abdomen-bs+ s/nt/nd, +pd catheter Extremities-no c/c/e Neuro-nonfocal Current Inpatient Medications Medications (Trade) Dose Ordered Sig/Sachin Route Start Time Stop Time Status Last Admin Dose Admin Heparin Sodium (Porcine) (Heparin Sq 5000 Unit/0.5ml) 5,000 unit Q8 SQ 05/15/17 22:00 06/14/17 21:59 Acetaminophen (Tylenol Tab) 650 mg Q4H PRN PO 05/15/17 15:45 06/14/17 15:44 05/16/17 00:16 650 MG Promethazine HCl 12.5 mg/Sodium Chloride 50.5 ml @ 204 mls/hr Q6H PRN IV 05/15/17 15:45 06/14/17 15:44 05/17/17 05:36 204 MLS/HR Amlodipine Besylate (Norvasc Tab) 10 mg DAILY PO 05/15/17 16:00 06/14/17 15:59 05/15/17 16:31 10 MG Carvedilol (Coreg Tab) 25 mg BID PO 05/15/17 21:00 06/14/17 20:59 05/16/17 20:55 25 MG Hydralazine HCl (HydrALAZINE INJ) 10 mg Q6H PRN IV. 05/15/17 16:00 06/14/17 15:59 05/17/17 04:36 10 MG Tramadol HCl (Ultram Tab) 50 mg Q12H PRN PO 05/15/17 16:00 06/14/17 15:59 05/17/17 05:42 50 MG Calcium Acetate (Phoslo Cap) 1,334 mg PRN PRN PO 05/15/17 16:30 06/14/17 16:29 Calcium Acetate (Phoslo Cap) 2,001 mg TIDM PO 05/15/17 17:35 06/14/17 17:59 05/16/17 16:22 2,001 MG Calcium Carbonate (Tums Chew Tab) 1,500 mg HS PO 05/15/17 21:00 06/14/17 20:59 05/16/17 20:55 1,500 MG Famotidine (Pepcid Tab) 40 mg QAM PO 05/16/17 09:00 06/15/17 08:59 05/16/17 08:18 40 MG Lisinopril (Zestril Tab) 20 mg BID PO 05/15/17 21:00 06/14/17 20:59 05/16/17 20:55 20 MG Calcitriol (Rocaltrol Cap) 1 mcg QAM PO 05/16/17 09:00 06/15/17 08:59 05/16/17 08:17 1 MCG Codeine Phosphate/ Guaifenesin (Robitussin-AC Sugar Free Syrup) 10 ml Q6H PRN PO 05/15/17 20:00 06/14/17 19:59 Lorazepam 0.5 mg/ Syringe 0.5 ml @ 0.5 mls/min Q4H PRN IV 05/15/17 23:30 06/14/17 23:29 Lorazepam (Ativan Inj) 0.5 mg Q4H PRN IV 05/15/17 23:45 06/14/17 23:44 05/16/17 23:49 0.5 MG Last 24 Hours Test 05/17/17 07:18 Assessment & Plan ESRD-temporarily doing hemodialysis while in house to help with fluid removal. tolerated dialysis well yesterday. removed 2600. for dialysis again today. face appears less puffy. HTN: has persistent diastolics above 100. currently on lisinopril 20 bid, coreg 25 bid, norvasc 10. also removing fluid on dialysis which should help with her hypertension. diastolics are getting better. no lightheadedness. Anemia-on procrit, hg levels though trended down rather aggressively. did have two units of blood yesterday. cbc pending for this am. increased dose of procrit. LOKESH-on phosphate binders and calcitriol. no changes.
[2017-05-17] MEDS: LORAZEPAM 2 MG/ML 1 ML VIAL IV PRN (07:46)
[2017-05-17] MEDS: AMLODIPINE BESYLATE 5 MG TAB PO SCH (07:47)
[2017-05-17] MEDS: CALCITRIOL 0.25 MCG CAP PO SCH (07:47)
[2017-05-17] MEDS: FAMOTIDINE 20 MG TAB PO SCH (07:47)
[2017-05-17] MEDS: LISINOPRIL 20 MG TAB PO SCH (07:50)
[2017-05-17] MEDS: CARVEDILOL 25 MG TAB PO SCH (07:50)
[2017-05-17 07:59] LABS: HEMATOCRIT 28.4 % (37-47); MEAN CELL VOLUME 92.2 fL (80-100); MEAN CORPUSCULAR HEMOGLOBIN 31.2 pg (25-34); MEAN CORPUSCULAR HGB CONC 33.8 g/dl (32-36); MEAN PLATELET VOLUME 8.3 fL (7.4-10.4); PLATELET COUNT 100 K/uL (130-400); RED BLOOD COUNT 3.08 M/uL (4.2-5.4); WHITE BLOOD COUNT 4.32 K/uL (4.8-10.8)
[2017-05-17] MEDS ORDERED: EPOETIN ALFA 10,000 UNITS/ML VIAL IV. SCH (08:30)
[2017-05-17 08:36] LABS: BUN/CREATININE RATIO 4.3 (10-20); PHOSPHORUS 5.8 mg/dl (2.5-4.9)
[2017-05-17 08:53] LABS: CALCIUM 7.4 mg/dl (8.5-10.1)
[2017-05-17] MEDS ORDERED: ONDANSETRON INJ 2 MG/ML 2 ML VIAL IV PRN (10:00)
--- NOTE | 2017-05-17 14:41 | Progress Note ---
Internal Med Progress Note Date of Service: May 17, 2017. Provider Documentation: SUBJECTIVE: The patient was seen and examined Denies any more CP but very tired No abdominal pain,nausea and or vomiting Feels better following Dialysis Wants to go home OBJECTIVE: Vital Signs-as noted below Exam: General-no distress at rest Eyes-normal ENT-normal Neck-supple Lungs-clear to ausucltate bilaterally With decreased breath sound Heart-Regular Abdomen-benign,no masses,bowel sound presene Extremities-Trace edema bilaterally Neuro-AAOx3 Generally weak and lethargic Lab data as noted below. ASSESSMENT & PLAN: ANEMIA Likely due to CKD -Hb dropped to 6.6 on 05/16/17 -Will transfuse during Dialysis -Hb >9 following transfusion -Feeling a lot better Uncontrolled HTN - patient was to be on Norvasc 5mg however has been taking 10mg; will increase Coreg to 25mg BID; continue Lisinopril -Coreg ,lisinopril and Norvasc doses have been increased -BP is improving VOLUME OVERLOAD IN THE SETTING OF ESRD ON PD AND DIASTOLIC CHF -Presented with worsening shortness of breath x 1 week, 15 kg weight gain, and was hypoxic with ambulation and CXR showed developing CHF - Patient with history of non compliance and difficult to control BPs - echo 04/18/17 - EF 60-65%, grade II diastolic dysfunction - The case was discussed with Dr. Jo - since patient is currently hemodynamically stable, will give Lasix 80mg IV x 1 tonight and start HD tomorrow (patient has fistula in place) - 1500ml FR, daily weight -Appreciate Nephrology input -Will have Dialysis today 05/16 -Ongoing Dialysis CHEST PAIN -Likely secondary to Anemia and complicated by CHF -Doubt any ACS - EKG without acute ST changes, troponins are negative -Denies any more chest pain PROLONGED QTC - QTc 546 - for now will hold escitalopram, trazodone, and Remeron - consider resuming escitalopram at a lower dose DEPRESSION - holding escitalopram, trazodone, and Remeron due to prolonged QTc - consider resuming escitalopram ar a lower dose DVT PROPHYLAXIS - SQ heparin DISPO Discharge today Vital Signs: Date Time Temp Pulse Resp B/P (MAP) Pulse Ox O2 Delivery O2 Flow Rate FiO2 05/17/17 13:30 85 145/95 05/17/17 13:15 85 146/87 05/17/17 13:00 86 149/92 05/17/17 12:45 84 156/97 05/17/17 12:30 86 149/96 05/17/17 12:15 84 159/89 05/17/17 12:00 85 150/96 05/17/17 11:45 85 145/94 05/17/17 11:30 88 157/87 05/17/17 11:15 85 152/99 05/17/17 11:00 83 156/96 05/17/17 10:45 86 168/105 05/17/17 10:35 62 157/42 05/17/17 10:15 37.0 89 173/104 (127) 05/17/17 08:00 Room Air 05/17/17 07:48 36.7 79 18 172/111 (131) 97 Room Air 05/17/17 05:00 160/98 (118) 05/17/17 04:00 Room Air 05/17/17 04:00 36.6 85 16 173/117 (135) 96 Room Air 05/16/17 23:59 Room Air 05/16/17 23:00 36.6 79 21 154/85 (108) 97 Room Air 05/16/17 22:30 157/95 (115) 05/16/17 20:00 Room Air 05/16/17 18:58 36.9 88 16 172/109 (130) 95 Room Air 05/16/17 16:00 Room Air 05/16/17 15:13 36.8 79 18 168/105 (126) 97 Room Air Lab Results: Results Past 24 Hours Test 05/17/17 07:37 Range/Units White Blood Count 4.32 4.8-10.8 K/uL Red Blood Count 3.08 4.2-5.4 M/uL Hemoglobin 9.6 12.0-16.0 g/dL Hematocrit 28.4 37-47 % Mean Corpuscular Volume 92.2 80-100 fL Mean Corpuscular Hemoglobin 31.2 25-34 pg Mean Corpuscular Hemoglobin Concent 33.8 32-36 g/dl RDW Standard Deviation 58.6 36.4-46.3 fL RDW Coefficient of Variation 17.5 11.5-14.5 % Platelet Count 100 130-400 K/uL Mean Platelet Volume 8.3 7.4-10.4 fL Sodium Level 136 136-145 mmol/L Potassium Level 4.0 3.5-5.1 mmol/L Chloride Level 100 98-107 mmol/L Carbon Dioxide Level 26 21-32 mmol/L Anion Gap 10.0 3-11 mmol/L Blood Urea Nitrogen 56 7-18 mg/dl Creatinine 13.00 0.60-1.20 mg/dl Est Creatinine Clear Calc Drug Dose 7.3 ml/min Estimated GFR () 3.9 Estimated GFR (Non- 3.4 BUN/Creatinine Ratio 4.3 10-20 Random Glucose 79 70-99 mg/dl Calcium Level 7.4 8.5-10.1 mg/dl Phosphorus Level 5.8 2.5-4.9 mg/dl
[2017-05-17] MEDS ORDERED: CRG25 PO ×2 (14:53)
--- NOTE | 2017-05-17 14:56 | Discharge Instructions ---
Discharge Instructions Date of Service May 17, 2017. Admission Reason for Admission: Volume Overload Discharge Discharge Diagnosis / Problem: Fluid Overload,ESRD on Hemodialysis,Anemia s/p 2 units of PRBC Discharge Goals Goal(s): Prevent Disease Progression Activity Recommendations Activity Limitations: resume your previous activity . Instructions / Follow-Up Instructions / Follow-Up Dr Aldridge on 05/22/17 at 2:45 PM.Please keep appointment with Hemodialysis Current Hospital Diet Patient's current hospital diet: Low Sodium Diet (2gm Na), AHA Diet (Heart Healthy), Renal Diet Discharge Diet Recommended Diet: Low Sodium Diet (2gm Na), Renal Diet Fluid Restriction: 1500 ml (6 cups) Pending Studies Studies pending at discharge: no Medical Emergencies . Who to Call and When: Medical Emergencies: If at any time you feel your situation is an emergency, please call 911 immediately. . Non-Emergent Contact Non-Emergency issues call your: Primary Care Provider . Past History Medical & Surgical History: (1) Diastolic CHF (2) Pulmonary embolism (3) Migraine (4) DM2 (diabetes mellitus, type 2) (5) CKD (chronic kidney disease) stage V requiring chronic dialysis (6) Kidney transplant status, living related donor (7) H/O knee surgery (8) H/O: (9) H/O tubal ligation . "Provider Documentation" section prepared by Juan Victor. . VTE Core Measure Inpt VTE Proph given/why not?: Unfractionated heparin SQ
--- NOTE | 2017-05-18 09:39 | Discharge Summary ---
Discharge Summary Date of Service May 18, 2017. Discharge Summary Admission Date: May 15, 2017 at 15:34 Discharge Date: May 17, 2017 Principal Diagnosis: Fluid Overload,ESRD on Hemodialysis,Anemia s/p 2 units of PRBC Secondary Diagnoses/Problems: Please see H&P and Hospital Progress note Consultations: Nephrology Medication Reconciliation New Medications: Carvedilol (Carvedilol) 25 Mg Tab 25 MG PO BID for 30 Days, #60 TAB Continued Medications: Albuterol Hfa (Ventolin Hfa) 200 Puffs/34956 Mcg Aers 2 PUFFS INH Q4H PRN for SOB/Wheezing, INHALER Amlodipine Besylate (Amlodipine Besylate) 5 Mg Tab 10 MG PO DAILY, #30 Benzonatate (Benzonatate) 100 Mg Cap 100 MG PO Q8 PRN for Cough, #20 Calcitriol (Calcitriol) 0.5 Mcg Cap 2 CAP PO QAM, #60 Calcium Acetate (Phoslo 667 Mg) 667 Mg Cap 3 CAP PO WM, CAP TAKE 4 CAPSULES WITH MEALS Calcium Acetate (Phoslo 667 Mg) 667 Mg Cap 2 CAP PO WITH SNACKS, CAP TAKE 2 CAPSULES WITH SNACKS Calcium Carbonate (Tums) 500 Mg Chew 1500 MG PO HS Escitalopram Oxalate (Escitalopram Oxalate) 20 Mg Tab 20 MG PO DAILY Famotidine (Pepcid) 40 Mg Tab 40 MG PO QAM, TAB Fluticasone Propionate (Nasal) (Flonase Allergy Relief) 50 Mcg/Act Spr 2 SPRAYS FRED DAILY PRN for Nasal Congestion Lisinopril (Zestril) 20 Mg Tab 20 MG PO BID, TAB Mirtazapine (Remeron) 30 Mg Tab 30 MG PO HS Trazodone Hcl (Trazodone) 50 Mg Tab 50 MG PO HS, TAB Discontinued Medications: Carvedilol (Carvedilol) 12.5 Mg Tab 12.5 MG PO BID, #60 Admission Information HPI (per Admitting provider): 31 year old female who presents to the ER with shortness of breath. Patient is well known to our service. Most recent admission to [facility] was 04/25 - 04/26 for hypotension in the setting of using the incorrect dialysate bags. At discharge, Norvasc was discontinued and lisinopril was decreased. Patient was seen in the clinic on 05/05 in the clinical for allergies and was given Prednisone. Was then seen in the ED on 05/06 for left arm pain. She underwent CTA chest that was negative for PE and therefore Coumadin was stopped. Patient was also found to be hypertensive. She received IV hydralazine and Lisinopril was increased. Patient was seen in the clinic on 05/08 for ED follow up and BP was controlled, no additional therapies were given. On 05/09 patient was seen un the ED again for shortness of breath and cough and was diagnosed with bronchitis and discharged on Tessalon pearls. She was seen in the dialysis clinic on 05/10 and BP was elevated so carvedilol was increased and Norvasc was restarted. Patient was seen by her PCP today for worsening shortness of breath. Outpatient CXR showed congestion. She was also hypoxic with ambulation so she was referred to the ED for further evaluation. Patient reports increasing shortness of breath for the past week. She reports a non productive cough. She developed persistent midsternal chest pain two days ago. She describes the pain as sharp. Rates it #7/10 at its worst. Patient was to change to different dialysate bags to help with volume removal however she was unable to get them. She reports being compliant with her PD. She reports gaining 15kg in 10 days and feels as though her abdomen is more distended. She denies abdominal pain, nausea, or vomiting. She reports chronic diarrhea. No fever or chills. She denies lightheadedness, dizziness, diaphoresis, or syncopal events. She reports she continues to make urine. She denies any urinary symptoms. In the ED, patient is hemodynamically stable. Past Medical/Surgical History Medical Problems: (1) Anemia Status: Chronic (2) CKD (chronic kidney disease) stage V requiring chronic dialysis Status: Chronic (3) Diastolic CHF Permanent Comment: echo 04/18/17 - EF 60-65%, grade II diastolic dysfunction Status: Chronic (4) DM2 (diabetes mellitus, type 2) Status: Chronic (5) FSGS (focal segmental glomerulosclerosis) Status: Chronic (6) HTN (hypertension) Status: Chronic (7) Migraine Status: Chronic (8) Peritoneal dialysis catheter in place Status: Chronic (9) Pulmonary embolism Permanent Comment: found on VQ scan however follow up CTA chest was negative for PE therefore Coumadin was stoppped Status: Chronic Surgical Problems: (1) H/O knee surgery Status: Chronic (2) H/O tubal ligation Status: Chronic (3) H/O: Status: Chronic (4) Kidney transplant status, living related donor Status: Chronic Family History Blood clots FATHER BROTHER Crohn's disease FATHER Diabetes mellitus MOTHER Hypertension SISTER Social History Smoking Status: Current Every Day Smoker Alcohol Use: occasionally Immunizations History of Influenza Vaccine: Yes Influenza Vaccine Date: May 05, 2016 History of Tetanus Vaccine?: Yes Tetanus Immunization Date: Oct 09, 2011 History of Pneumococcal: Yes Pneumococcal Date: Dec 05, 2006 History of Hepatitis B Vaccine: Yes Hepatitis Immunization Date: May 21, 1998 Multi-Drug Resistant Organisms History of MDRO: No Allergies Coded Allergies: Cefaclor (Verified Allergy, Intermediate, Rash, 05/06/17) Reported by PT. Amoxicillin (Verified Adverse Reaction, Mild, VOMITING, 05/06/17) Clavulanic Acid (Verified Adverse Reaction, Mild, VOMITING, 05/06/17) Home Medications Scheduled Amlodipine Besylate (Amlodipine Besylate), 10 MG PO DAILY Calcitriol (Calcitriol), 2 CAP PO QAM Calcium Acetate (Phoslo 667 Mg), 3 CAP PO WM Calcium Acetate (Phoslo 667 Mg), 2 CAP PO WITH SNACKS Calcium Carbonate (Tums), 1,500 MG PO HS Carvedilol (Carvedilol), 12.5 MG PO BID Escitalopram Oxalate (Escitalopram Oxalate), 20 MG PO DAILY Famotidine (Pepcid), 40 MG PO QAM Lisinopril (Zestril), 20 MG PO BID Mirtazapine (Remeron), 30 MG PO HS Trazodone Hcl (Trazodone), 50 MG PO HS Scheduled PRN Albuterol Hfa (Ventolin Hfa), 2 PUFFS INH Q4H PRN for SOB/Wheezing Benzonatate (Benzonatate), 100 MG PO Q8 PRN for Cough Fluticasone Propionate (Nasal) (Flonase Allergy Relief), 2 SPRAYS FRED DAILY PRN for Nasal Congestion Review of Systems ROS per HPI, all other systems reviewed and negative Physical Ex - H&P Physical Exam Vital Signs Date Time Temp Pulse Resp B/P (MAP) Pulse Ox O2 Delivery O2 Flow Rate FiO2 05/15/17 15:23 96 Room Air 05/15/17 15:21 92 05/15/17 15:04 96 Room Air 05/15/17 15:00 91 20 166/115 96 Room Air 05/15/17 14:01 98 Room Air 05/15/17 14:01 36.6 96 20 165/117 98 Room Air General Appearance: no apparent distress Head: normocephalic Eyes: normal inspection, sclerae normal ENT: hearing grossly normal Neck: supple, no JVD Respiratory/Chest: no respiratory distress, + decreased breath sounds (BL, mid- bases ) Cardiovascular: regular rate, rhythm, no edema, normal peripheral pulses Abdomen/GI: normal bowel sounds, non tender, soft, + distended, + pertinent finding (PD cathter in place ) Extremities/Musculoskelatal: normal inspection, no calf tenderness, + pertinent finding (LUE fistula in place with palpable thrill) Neurologic/Psych: no motor/sensory deficits, alert, normal mood/affect, oriented x 3 Skin: normal color, warm/dry Diagnostics - H&P Diagnostics Laboratory Results Results Past 24 Hours Test 05/15/17 15:01 05/15/17 15:38 Range/Units Sodium Level 139 136-145 mmol/L Potassium Level 4.4 3.5-5.1 mmol/L Chloride Level 104 98-107 mmol/L Carbon Dioxide Level 20 21-32 mmol/L Anion Gap 15.0 3-11 mmol/L Blood Urea Nitrogen 99 7-18 mg/dl Creatinine 19.00 0.60-1.20 mg/dl Est Creatinine Clear Calc Drug Dose 5.1 ml/min Estimated GFR () 2.5 Estimated GFR (Non- 2.1 BUN/Creatinine Ratio 5.2 10-20 Random Glucose 82 70-99 mg/dl Calcium Level 6.4 8.5-10.1 mg/dl Phosphorus Level 8.0 2.5-4.9 mg/dl Magnesium Level 2.0 1.8-2.4 mg/dl Total Bilirubin 0.3 0.2-1 mg/dl Aspartate Amino Transf (AST/SGOT) 23 15-37 U/L Alanine Aminotransferase (ALT/SGPT) 35 12-78 U/L Alkaline Phosphatase 68 45-117 U/L Troponin I 0.041 0-0.045 ng/ml Total Protein 6.0 6.4-8.2 gm/dl Albumin 2.5 3.4-5.0 gm/dl Globulin 3.5 2.5-4.0 gm/dl Albumin/Globulin Ratio 0.7 0.9-2 White Blood Count 4.82 4.8-10.8 K/uL Red Blood Count 2.32 4.2-5.4 M/uL Hemoglobin 7.3 12.0-16.0 g/dL Hematocrit 22.0 37-47 % Mean Corpuscular Volume 94.8 80-100 fL Mean Corpuscular Hemoglobin 31.5 25-34 pg Mean Corpuscular Hemoglobin Concent 33.2 32-36 g/dl RDW Standard Deviation 56.5 36.4-46.3 fL RDW Coefficient of Variation 16.6 11.5-14.5 % Platelet Count 143 130-400 K/uL Mean Platelet Volume 9.4 7.4-10.4 fL Diagnostic Radiology CXR IMPRESSION: Developing congestive heart failure Impression - H&P Impression Assessment and Plan VOLUME OVERLOAD IN THE SETTING OF ESRD ON PD AND DIASTOLIC CHF - admit to tele - patient presented to the outpatient setting today with worsening shortness of breath x 1 week, 15 kg weight gain, and was hypoxic with ambulation and CXR showed developing CHF - was sent to the ER for further evaluation - in the ED, patient saturating well on room air, BP stable - patient with history of non compliance and difficult to control BPs - suspect volume overload is multifactorial due to acute on chronic diastolic CHF due to recently uncontrolled BPs in the setting of ESRD and incorrect dialysate bag usage - echo 04/18/17 - EF 60-65%, grade II diastolic dysfunction - case discussed with Dr. Jo - since patient is currently hemodynamically stable, will give Lasix 80mg IV x 1 tonight and start HD tomorrow (patient has fistula in place) - 1500ml FR, daily weight CHEST PAIN - likely due to volume overload versus persistent coughing 2/2 recent bronchitis and continued smoking - EKG without acute ST changes, initial troponin negative - continue to cycle cardiac enzymes PROLONGED QTC - QTc 546 - for now will hold escitalopram, trazodone, and Remeron - consider resuming escitalopram at a lower dose - daily EKG - K+ and Mg+ WNL ANEMIA - chronic due to underlying CKD - baseline ~ 8 - 9, noted to be 7.2 today - likely dilutional in the setting of volume overload - recheck CBC in the morning, consider PRBC transfusion with HD HTN - uncontrolled - patient was to be on Norvasc 5mg however has been taking 10mg; will increase Coreg to 25mg BID; continue Lisinopril - BP should improve with volume removal - PRN hydralazine DEPRESSION - holding escitalopram, trazodone, and Remeron due to prolonged QTc - consider resuming escitalopram ar a lower dose DVT PROPHYLAXIS - SQ heparin DISPO - In my clinical judgment this beneficiary meets acute admission criteria, established by [facility], that includes being hospitalized through two midnights. ADDENDUM: I have seen and examined the patient and agree with the assessment and plan above with the exception that her chest pain is 2/2 her coughing from acute bronchitis and continued smoking. She reports insomnia from coughing for the past 3 nights. I am giving her Robitussin AC to help with this. Plan is for HD in am. She may need a blood transfusion tomorrow, also. Does not appear to have symptomatic anemia but that may be contributing. DO Adalberto Advanced Directives Existing Living Will: No Existing Power of Show Host: No VTE Prophylaxis VTE Risk Assessment Done? Y/N: Yes Risk Level: Moderate Physical Exam (per Admitting): General Appearance: no apparent distress Head: normocephalic Eyes: normal inspection, sclerae normal ENT: hearing grossly normal Neck: supple, no JVD Respiratory/Chest: no respiratory distress, + decreased breath sounds (BL, mid-bases ) Cardiovascular: regular rate, rhythm, no edema, normal peripheral pulses Abdomen/GI: normal bowel sounds, non tender, soft, + distended, + pertinent finding (PD cathter in place ) Extremities/Musculoskelatal: normal inspection, no calf tenderness, + pertinent finding (LUE fistula in place with palpable thrill) Neurologic/Psych: no motor/sensory deficits, alert, normal mood/affect, oriented x 3 Skin: normal color, warm/dry Hospital Course ANEMIA Likely due to CKD -Hb dropped to 6.6 on 05/16/17 -Will transfuse during Dialysis -Hb >9 following transfusion -Feeling a lot better Uncontrolled HTN - patient was to be on Norvasc 5mg however has been taking 10mg; will increase Coreg to 25mg BID; continue Lisinopril -Coreg ,lisinopril and Norvasc doses have been increased -BP is improving VOLUME OVERLOAD IN THE SETTING OF ESRD ON PD AND DIASTOLIC CHF -Presented with worsening shortness of breath x 1 week, 15 kg weight gain, and was hypoxic with ambulation and CXR showed developing CHF - Patient with history of non compliance and difficult to control BPs - echo 04/18/17 - EF 60-65%, grade II diastolic dysfunction - The case was discussed with Dr. Jo - since patient is currently hemodynamically stable, will give Lasix 80mg IV x 1 tonight and start HD tomorrow (patient has fistula in place) - 1500ml FR, daily weight -Appreciate Nephrology input -Will have Dialysis today 05/16 -Ongoing Dialysis CHEST PAIN -Likely secondary to Anemia and complicated by CHF -Doubt any ACS - EKG without acute ST changes, troponins are negative -Denies any more chest pain PROLONGED QTC - QTc 546 - for now will hold escitalopram, trazodone, and Remeron - consider resuming escitalopram at a lower dose DEPRESSION - holding escitalopram, trazodone, and Remeron due to prolonged QTc - consider resuming escitalopram ar a lower dose DVT PROPHYLAXIS - SQ heparin DISPO Discharge today Total time spent on discharge = 35 minutes This includes examination of the patient, discharge planning, medication reconciliation, and communication with other providers. Discharge Instructions Date of Service May 17, 2017. Admission Reason for Admission: Volume Overload Discharge Discharge Diagnosis / Problem: Fluid Overload,ESRD on Hemodialysis,Anemia s/p 2 units of PRBC Discharge Goals Goal(s): Prevent Disease Progression Activity Recommendations Activity Limitations: resume your previous activity . Instructions / Follow-Up Instructions / Follow-Up Dr Aldridge on 05/22/17 at 2:45 PM.Please keep appointment with Hemodialysis Current Hospital Diet Patient's current hospital diet: Low Sodium Diet (2gm Na), AHA Diet (Heart Healthy), Renal Diet Discharge Diet Recommended Diet: Low Sodium Diet (2gm Na), Renal Diet Fluid Restriction: 1500 ml (6 cups) Pending Studies Studies pending at discharge: no Medical Emergencies . Who to Call and When: Medical Emergencies: If at any time you feel your situation is an emergency, please call 911 immediately. . Non-Emergent Contact Non-Emergency issues call your: Primary Care Provider . Past History Medical & Surgical History: (1) Diastolic CHF (2) Pulmonary embolism (3) Migraine (4) DM2 (diabetes mellitus, type 2) (5) CKD (chronic kidney disease) stage V requiring chronic dialysis (6) Kidney transplant status, living related donor (7) H/O knee surgery (8) H/O: (9) H/O tubal ligation . "Provider Documentation" section prepared by Juan Victor. . VTE Core Measure Inpt VTE Proph given/why not?: Unfractionated heparin SQ <Electronically signed by Juan Victor M.D.> Signed: 05/17/17 [id number] Additional Copies To Adolph Aldridge M.D.
[2017-05-21] MEDS ORDERED: APR25 PO (00:24)
[2017-05-21] MEDS ORDERED: APR50 PO (15:28)
[2017-05-21] MEDS ORDERED: ATV1 PO (15:28)
[2017-05-21] MEDS ORDERED: ativan PO (16:06)
== END 2017-05-17 15:50 | disposition home or self-care (01) | DRG 291 ==
LOC: C.EDB 13:54 → C.2T 15:34 → EDBEDREQ 15:55 → ENRESERV 16:00
PROVIDERS: ADMIT Hospitalist; ATTEND Internal Medicine
DX: I13.2 Hypertensive heart and chronic kidney disease with heart failure and with stage 5 chronic kidney disease, or end stage renal disease (principal); N18.6 End stage renal disease; I50.33 Acute on chronic diastolic (congestive) heart failure; T86.11 Kidney transplant rejection; Z94.0 Kidney transplant status; Z99.2 Dependence on renal dialysis; J20.9 Acute bronchitis, unspecified; D63.1 Anemia in chronic kidney disease; R07.9 Chest pain, unspecified; I45.81 Long QT syndrome; F32.9 Major depressive disorder, single episode, unspecified; E11.9 Type 2 diabetes mellitus without complications; N25.0 Renal osteodystrophy; F17.200 Nicotine dependence, unspecified, uncomplicated; E66.9 Obesity, unspecified; Z68.34 Body mass index [BMI] 34.0-34.9, adult; Z79.899 Other long term (current) drug therapy; Z88.0 Allergy status to penicillin; Z88.1 Allergy status to other antibiotic agents; Z83.2 Family history of diseases of the blood and blood-forming organs and certain disorders involving the immune mechanism; Z83.79 Family history of other diseases of the digestive system; Z83.3 Family history of diabetes mellitus; Z82.49 Family history of ischemic heart disease and other diseases of the circulatory system

== ENCOUNTER → 2017-05-15 | Outpatient (CLI) | payer OTHER ==
[~2017-05-15] MED LIST changes: +APR25 PO; +APR50 PO; +ATV1 PO; +BENZ100C7 PO; +BENZ100C84 PO; +CALC0.5C17 PO; +CALC500C3 PO; +CALC667C4 PO; -CMD3 PO; +CRG125 PO; +CRG25 PO; +FAMO40TA6 PO; +FLUT0.15 NAE; +LISI-725 PO; -LSN20 PO; +LXP/20 PO; +MIRT30TA3 PO; +NRV/5 PO; +TRAZ50TA35 PO; +VNTHFA/IN INH; +ativan PO
--- NOTE | 2017-05-15 11:41 | DIAGNOSTIC IMAGING REPORT ---
CHEST 2 VIEWS ROUTINE CLINICAL HISTORY: DYS VERNON ON EXERTION R06.09 dyspnea COMPARISON STUDY: 05/09/2017 FINDINGS: Mild increase in pulmonary vasculature compared to the prior study. Mild cardiomegaly. Diaphragms smooth. IMPRESSION: Developing congestive heart failure The above report was generated using voice recognition software. It may contain grammatical, syntax or spelling errors. Electronically signed by: Adolph Rizo M.D. 05/15/2017 11:39 AM Dictated Date/Time: 05/15/2017 11:39 AM
[2017-05-15 12:21] LABS: BASO % 0.6 %; BASO ABS # 0.03 K/uL (0-0.2); EOS % 7.9 %; HEMATOCRIT 22.3 % (37-47); IG% 0.2 %; LYMPH % 13.3 %; LYMPH ABS # 0.67 K/uL (1.2-3.4); MEAN CELL VOLUME 95.3 fL (80-100); MEAN CORPUSCULAR HEMOGLOBIN 31.2 pg (25-34); MEAN CORPUSCULAR HGB CONC 32.7 g/dl (32-36); MEAN PLATELET VOLUME 9.4 fL (7.4-10.4); MONO % 5.6 %; NEUT % 72.4 %; PLATELET COUNT 154 K/uL (130-400); RED BLOOD COUNT 2.34 M/uL (4.2-5.4); WHITE BLOOD COUNT 5.04 K/uL (4.8-10.8)
[2017-05-15 12:49] LABS: COMPLETE YES
== END | disposition home or self-care (01) ==
LOC: C.RAD 11:00
PROVIDERS: ATTEND Family Medicine
DX: R06.09 Other forms of dyspnea (principal)

== ENCOUNTER 2017-05-19 08:45 | Inpatient (IN) | payer OTHER ==
[2017-05-19] VITALS (22 sets, daily range): BP systolic 156–188; BP diastolic 99–122; PULSE 78–96; TEMP 36.8–37.4; O2SAT 94–100; Ht 167.6 cm; Wt 88.9 kg
[~2017-05-19] VITALS: Ht 167.6 cm; Wt 88.9 kg
[~2017-05-19 08:45] MED LIST changes: +BENZ100C7 PO; -BENZ100C84 PO; +CALC0.5C17 PO; +CALC667C4 PO; -CARV3.122 PO; +CRG25 PO; +FAMO40TA6 PO; +FLUT0.15 NAE; +LXP/20 PO; +MIRT30TA3 PO; +NRV/5 PO; -PRED10TA; +TRAZ50TA35 PO
[2017-05-19 09:41] LABS: HEMATOCRIT 30.2 % (37-47); MEAN CELL VOLUME 94.4 fL (80-100); MEAN CORPUSCULAR HEMOGLOBIN 31.3 pg (25-34); MEAN CORPUSCULAR HGB CONC 33.1 g/dl (32-36); WHITE BLOOD COUNT 5.08 K/uL (4.8-10.8)
[2017-05-19 10:05] LABS: ALB/GLOB RATIO 0.8 (0.9-2); ALKALINE PHOSPHATASE 69 U/L (45-117); ALT/SGPT 29 U/L (12-78); AST/SGOT 23 U/L (15-37); BLOOD UREA NITROGEN 38 mg/dl (7-18); BUN/CREATININE RATIO 3.4 (10-20); CALCIUM 7.5 mg/dl (8.5-10.1); CARBON DIOXIDE 28 mmol/L (21-32); CHLORIDE 102 mmol/L (98-107); GLUCOSE 95 mg/dl (70-99); POTASSIUM 3.9 mmol/L (3.5-5.1); SODIUM 141 mmol/L (136-145)
[2017-05-19 10:17] LABS: BASO % 0.2 %; BASO ABS # 0.01 K/uL (0-0.2); COMPLETE YES; EOS % 8.7 %; IG% 0.4 %; LYMPH ABS # 0.71 K/uL (1.2-3.4); MEAN PLATELET VOLUME 9.2 fL (7.4-10.4); MONO % 7.5 %; NEUT % 69.2 %; OVALOCYTES 1+; PLATELET COUNT 86 K/uL (130-400); PLT ESTIMATE DECREASED; TEAR DROP CELLS 1+
--- NOTE | 2017-05-19 10:23 | DIAGNOSTIC IMAGING REPORT ---
CHEST 2 VIEWS ROUTINE CLINICAL HISTORY: sob dyspnea COMPARISON STUDY: 05/23/2017 FINDINGS: Congestive failure considered subacute progressive from the prior exam. Small left pleural effusion. Increased prominence of pulmonary vasculature. IMPRESSION: Congestive heart failure mildly progressive from the prior study. Small left pleural effusion. The above report was generated using voice recognition software. It may contain grammatical, syntax or spelling errors. Electronically signed by: Adolph Rizo M.D. 05/19/2017 10:22 AM Dictated Date/Time: 05/19/2017 10:20 AM
--- NOTE | 2017-05-19 11:42 | History and Physical ---
History & Physical Date & Time of Service: May 19, 2017 at 11:42 Chief Complaint: Difficulty Breathing/Chest Pain Primary Care Physician: Adolph Aldridge M.D. History of Present Illness Source: patient This is a 31 Yo F hx of FSGS-leading ERDS , s/p renal transplant in 2013 in [facility] , subsequent transplant failure in 2016 leading to back to HD was on HD before ,been followed with Dr Jo , recently switched to Peritoneal dialysis as pt could not tolerate HD due to leg cramps , her recent admission to [facility] was form May 15- with volume overload , acute decompensation of diastolic HF underwent HD while in hospital presents today with worsening of SOB , BADILLO , increased wt gain Cxray shows pulmonary congestion Nephrology updated -pt will undergo HD today Past Medical/Surgical History Medical Problems: (1) Anemia Status: Chronic (2) CKD (chronic kidney disease) stage V requiring chronic dialysis Status: Chronic (3) Diastolic CHF Permanent Comment: echo 04/18/17 - EF 60-65%, grade II diastolic dysfunction Status: Chronic (4) DM2 (diabetes mellitus, type 2) Status: Chronic (5) FSGS (focal segmental glomerulosclerosis) Status: Chronic (6) HTN (hypertension) Status: Chronic (7) Migraine Status: Chronic (8) Peritoneal dialysis catheter in place Status: Chronic (9) Pulmonary embolism Permanent Comment: found on VQ scan however follow up CTA chest was negative for PE therefore Coumadin was stoppped Status: Chronic (10) Renal failure Permanent Comment: She has ESRD but is super non complaint with Dialysis. has missed dialysis for more than 2 weeks. As a result has lot of biochemical indicators of missing Dialysis--very lot Hgb, very low Calcium and very high BUn and creatinine. Because her BUN and creat is so high she is at risk for Dysequlibrium syndrome. So to avoid that will have to slow incremental dialysis. Will do 2hrs today, low qb dialysis. tomorrow will be 3 hrs and then Saturday will be 4 hrs. She is c/o Pain at the CVC site but it looks fine on exam and the Imaging. Will know further with Dialysis. I am surprised that despite such low Ca++ she still looks fine and no Symptoms. Status: Chronic Surgical Problems: (1) H/O knee surgery Status: Chronic (2) H/O tubal ligation Status: Chronic (3) H/O: Status: Chronic (4) Kidney transplant status, living related donor Status: Chronic Family History Blood clots FATHER BROTHER Crohn's disease FATHER Diabetes mellitus MOTHER Hypertension SISTER Social History Smoking Status: Current Every Day Smoker Immunizations History of Influenza Vaccine: Yes Influenza Vaccine Date: May 05, 2016 History of Tetanus Vaccine?: Yes Tetanus Immunization Date: Oct 09, 2011 History of Pneumococcal: Yes Pneumococcal Date: Dec 05, 2006 History of Hepatitis B Vaccine: Yes Hepatitis Immunization Date: May 21, 1998 Multi-Drug Resistant Organisms History of MDRO: No Allergies Coded Allergies: Cefaclor (Verified Allergy, Intermediate, Rash, 05/19/17) Reported by PT. Amoxicillin (Verified Adverse Reaction, Mild, VOMITING, 05/19/17) Clavulanic Acid (Verified Adverse Reaction, Mild, VOMITING, 05/19/17) Home Medications Scheduled Amlodipine Besylate (Amlodipine Besylate), 10 MG PO DAILY Calcitriol (Calcitriol), 2 CAP PO QAM Calcium Acetate (Phoslo 667 Mg), 3 CAP PO WM Calcium Acetate (Phoslo 667 Mg), 2 CAP PO WITH SNACKS Calcium Carbonate (Tums), 1,500 MG PO HS Carvedilol (Carvedilol), 25 MG PO BID Escitalopram Oxalate (Escitalopram Oxalate), 20 MG PO DAILY Famotidine (Pepcid), 40 MG PO QAM Lisinopril (Zestril), 20 MG PO BID Mirtazapine (Remeron), 30 MG PO HS Trazodone Hcl (Trazodone), 50 MG PO HS Scheduled PRN Albuterol Hfa (Ventolin Hfa), 2 PUFFS INH Q4H PRN for SOB/Wheezing Benzonatate (Benzonatate), 100 MG PO Q8 PRN for Cough Fluticasone Propionate (Nasal) (Flonase Allergy Relief), 2 SPRAYS FRED DAILY PRN for Nasal Congestion Review of Systems Constitutional: + weakness, + fatigue Respiratory: + shortness of breath, + dyspnea on exertion, + dyspnea at rest Cardiovascular: + chest pain, + orthopnea, + edema, + palpitations Abdomen: + nausea, + vomiting Musculoskeletal: + muscle pain Neurologic: + vertigo Psychiatric: + depression symptoms, + anxiety Endocrine: + fatigue Physical Exam Vital Signs Date Time Temp Pulse Resp B/P (MAP) Pulse Ox O2 Delivery O2 Flow Rate FiO2 05/19/17 10:58 97 Room Air 05/19/17 10:52 94 18 173/119 97 Room Air 05/19/17 10:02 90 18 190/117 98 Room Air 05/19/17 08:55 98 05/19/17 08:54 36.0 95 18 189/129 98 Room Air General Appearance: + pertinent finding (puffiness of face ) Head: normocephalic, atraumatic Respiratory/Chest: + respiratory distress, + crackles, + rales Cardiovascular: regular rate, rhythm, + JVD Abdomen/GI: non tender, soft Extremities/Musculoskelatal: + pedal edema (+ 2 ) Neurologic/Psych: alert, normal mood/affect, oriented x 3 Diagnostics Laboratory Results Results Past 24 Hours Test 05/19/17 09:10 05/19/17 09:16 Range/Units White Blood Count 5.08 4.8-10.8 K/uL Red Blood Count 3.20 4.2-5.4 M/uL Hemoglobin 10.0 12.0-16.0 g/dL Hematocrit 30.2 37-47 % Mean Corpuscular Volume 94.4 80-100 fL Mean Corpuscular Hemoglobin 31.3 25-34 pg Mean Corpuscular Hemoglobin Concent 33.1 32-36 g/dl Platelet Count 86 130-400 K/uL Mean Platelet Volume 9.2 7.4-10.4 fL Neutrophils (%) (Auto) 69.2 % Lymphocytes (%) (Auto) 14.0 % Monocytes (%) (Auto) 7.5 % Eosinophils (%) (Auto) 8.7 % Basophils (%) (Auto) 0.2 % Neutrophils # (Auto) 3.52 1.4-6.5 K/uL Lymphocytes # (Auto) 0.71 1.2-3.4 K/uL Monocytes # (Auto) 0.38 0.11-0.59 K/uL Eosinophils # (Auto) 0.44 0-0.5 K/uL Basophils # (Auto) 0.01 0-0.2 K/uL RDW Standard Deviation 57.3 36.4-46.3 fL RDW Coefficient of Variation 16.8 11.5-14.5 % Immature Granulocyte % (Auto) 0.4 % Immature Granulocyte # (Auto) 0.02 0.00-0.02 K/uL Platelet Estimate DECREASED Tear Drop Cells 1+ Ovalocytes 1+ Sodium Level 141 136-145 mmol/L Potassium Level 3.9 3.5-5.1 mmol/L Chloride Level 102 98-107 mmol/L Carbon Dioxide Level 28 21-32 mmol/L Anion Gap 11.0 3-11 mmol/L Blood Urea Nitrogen 38 7-18 mg/dl Creatinine 11.00 0.60-1.20 mg/dl Est Creatinine Clear Calc Drug Dose 8.9 ml/min Estimated GFR () 4.8 Estimated GFR (Non- 4.1 BUN/Creatinine Ratio 3.4 10-20 Random Glucose 95 70-99 mg/dl Calcium Level 7.5 8.5-10.1 mg/dl Total Bilirubin 0.5 0.2-1 mg/dl Aspartate Amino Transf (AST/SGOT) 23 15-37 U/L Alanine Aminotransferase (ALT/SGPT) 29 12-78 U/L Alkaline Phosphatase 69 45-117 U/L Troponin I 0.053 0-0.045 ng/ml Pro-B-Type Natriuretic Peptide > 74661 0-450 pg/ml Total Protein 6.0 6.4-8.2 gm/dl Albumin 2.7 3.4-5.0 gm/dl Globulin 3.3 2.5-4.0 gm/dl Albumin/Globulin Ratio 0.8 0.9-2 Bedside Lactic Acid Venous 0.63 0.90-1.70 mmol/L Diagnostic Radiology CHEST XRAY 2 VIEWS ROUTINE CLINICAL HISTORY: sob dyspnea COMPARISON STUDY: 05/23/2017 FINDINGS: Congestive failure considered subacute progressive from the prior exam. Small left pleural effusion. Increased prominence of pulmonary vasculature. IMPRESSION: Congestive heart failure mildly progressive from the prior study. Small left pleural effusion. EKG Normal sinus rhythm Cannot rule out Anterior infarct (cited on or before 17-MAY-2017) Abnormal ECG When compared with ECG of 17-MAY-2017 06:38, Nonspecific T wave abnormality, improved in Lateral leads Impression Assessment and Plan SOB /VOLUME OVERLOAD /ACUTE CHF WITH DIASTOLIC FAILURE : due to non compliance with dialysis pt is continued with Peritoneal dialysis at home has been using the wrong bags dietary indiscretion -drinking a lot of Soda almost 2-3 L of fluid presents with generalized swelling , SOB , BADILLO nephrology consulted schedule for HD today , followed by peritoneal dialysis at night ESRD ON HD : hx of renal failure due to FSGS , failed renal transplant follows with nephrology Dr Jo pt been poorly complaint with dialysis -requiring recurrent admission at [facility] Appreciate Nephrology input S/P hemodialysis with removal of 6 L of fluid pt will be continued on PD tonight PROLONG QTC ; Qtc > 500 hold medication than can worsen prolongation SSRI /Trazodone /Zofran /TCA -Remeron -d/johnny repeat EKG in AM follow lyes -K /MG closely monitor in tele RECURRENT CHEST PAIN : due to above -decompensated CHF /vol overload pt's symptom very atypical for angina mild elevation of troponin possible due to demand ischemia recent ECHO on 04/18/17 : EF 60-65% , grade 2 diastolic dysfunction no wall motion abnormality recent Dobutamine stress test in 2015 was negative for stress induced ischemia monitor in tele serial cardiac markers ordered FULL CODE DVT PROPHYLAXIS : Sub q heparin DISPOSITION : Expected to be discharged home when medically stable Level of Care Telemetry Advanced Directives Existing Living Will: No Existing Power of Tin Worker: No Resuscitation Status FULL RESUSCITATION VTE Prophylaxis VTE Risk Assessment Done? Y/N: Yes Risk Level: Moderate Given or contraindicated: Unfractionated heparin SQ
[2017-05-19] MEDS ORDERED: BENZONATATE 100MG CAP PO PRN (11:45)
[2017-05-19] MEDS ORDERED: NITROGLYCERIN 0.4 MG SL PER TAB CHARGE SL PRN (11:45)
[2017-05-19] MEDS ORDERED: PROMETHAZINE HCL INJ 12.5 MG in SODIUM CHLORIDE 0.9% 50ML 50 ML IV PRN (11:45)
[2017-05-19] MEDS ORDERED: ONDANSETRON INJ 2 MG/ML 2 ML VIAL IV PRN (11:45)
[2017-05-19] MEDS ORDERED: FLUTICASONE PROPIONATE NA SPR 16 GM BTL NAE PRN (11:45)
[2017-05-19] MEDS ORDERED: CALCIUM ACETATE 667MG GELCAP PO PRN (11:45)
[2017-05-19] MEDS ORDERED: ALBUTEROL HFA 8 GM INHALER INH PRN (11:45)
[2017-05-19] MEDS ORDERED: NURSING VERBAL MED ORDER ONE (13:30)
--- NOTE | 2017-05-19 13:42 | NEPHROLOGY CONSULTATION ---
DATE OF CONSULTATION: 05/19/2017 REASON FOR CONSULT: Dialysis, patient admitted with fluid overload. HISTORY OF PRESENT ILLNESS: The patient is a 31-year-old who is extremely noncompliant with all modalities in aspects of dialysis care. She is currently supposed to be on CAPD with 4 exchanges per day. She was just discharged from the hospital 2 days ago after admission for shortness of breath. She presented to the hospital earlier today with chest heaviness, shortness of breath, orthopnea or PND and was found to have significant congestive heart failure. Her blood pressure is very high, her BNP is very high and she definitely looks puffy and short of breath. She claims she is doing dialysis on 2.5% as she did not have the 4.25% solution. She also had an AV fistula which is very functional. Denied having any fever, chills, or rigor or any other symptoms. REVIEW OF SYSTEMS: Twelve systems reviewed and otherwise negative. PHYSICAL EXAMINATION: VITAL SIGNS: Blood pressure 187/122, 98% on room air, pulse rate 92 per minute, temperature 36.7. HEENT: Mucous membranes moist. NECK: Supple. Jugular venous distention is present. Face looks very puffy. CHEST: Decreased breath sounds and occasional crackles. CARDIOVASCULAR: S1 and S2, regular. Soft systolic murmur heard. ABDOMEN: Soft, nontender, obese. The PD exit site looks clean and dry. EXTREMITIES: Shows 1+ edema. PAST MEDICAL AND SURGICAL HISTORY: Chronic anemia, end-stage renal disease, requiring chronic dialysis, diastolic congestive heart failure, type 2 diabetes, focal segmental glomerulosclerosis, hypertension, migraine, peritoneal dialysis catheter in place, history of pulmonary embolism; status post kidney transplant, living-related donor, which has failed; history of , tubal ligation, history of knee surgery. FAMILY HISTORY: Positive for blood, Crohn disease, diabetes, hypertension. SOCIAL HISTORY: Current everyday smoker. ALLERGIES: Reviewed. Home medication list was reviewed in detail and includes amlodipine, calcitriol, PhosLo, carvedilol, Lexapro, Pepcid, lisinopril, Remeron, and trazodone. LABORATORY TESTS: WBC count 5.08, platelet count 86,000. Sodium 141, potassium 3.9, BUN 38, creatinine 11.0. Calcium 7.5. Troponin slightly positive. ProBNP more than 35,000. ASSESSMENT AND PLAN: A 31-year-old with end-stage renal disease who is very noncompliant with all aspects of dialysis care. At this time, she presents with clear cut evidence of congestive heart failure associated with fluid retention. I am not sure if she is actually doing dialysis like she is supposed to or other possibilities peritoneal dialysis in this current form is not adequate for her. 1. End-stage renal disease. She needs to have some fluid taken off, reliably and quickly, so we will do 3 hours and 30 minutes of hemodialysis today through her fistula and will try to take 4-5 kilo of fluid . That should help with her breathing and her blood pressure relatively quick. She will also have peritoneal dialysis overnight through a cycler, we will do for 12 hours, 5 exchanges in all 4.25% ---that should take good amount of fluid overnight. The slightly elevated troponin is probably a reflection of the fluid retention in end-stage renal disease. At this time, she does not have any acute issues going on with peritoneal dialysis catheter. MTDD
[2017-05-19] MEDS: CLONIDINE HCL 0.1 MG TAB PO PRN ×2 (13:44→17:15)
[2017-05-19] MEDS: ACETAMINOPHEN 325 MG TAB PO PRN ×2 (13:45→18:35)
--- NOTE | 2017-05-19 14:55 | EMERGENCY ROOM VISIT NOTE ---
History Report prepared by Melibrandall: Sonia De Under the Supervision of: Dr. Berry Alves D.O. First contact with patient: 09:09 Chief Complaint: SHORTNESS OF BREATH Stated Complaint: DIFFICULTY BREATHING/CHEST PAIN Nursing Triage Summary: pt arrives via EMS . pt reports DC from here on Sat had tx for fluid on lungs and around heart. pt reports starting last night with increased exertional sob with tightness and had to sleep sitting up. pt is currently completing manual exchanges QID at home with perotineal dialysis denies fevers or chills reports using inhaler last night with no relief History of Present Illness The patient is a 31 year old female who presents to the Emergency Room with complaints of worsening shortness of breath since last night. She was brought to the ED via EMS. She reports she was discharged here from the hospital this past Saturday, 2 days ago, after being treated for fluid on the lungs and around her heart. She is currently completing manual exchanges QID at home with peritoneal dialysis. Her Stereotyper Apprentice is Dr. Jo and she last saw him 2 days ago, while here in the hospital. Last night the patient became short of breath and developed a feeling of "tightness" in her chest as she was trying to sleep. Exertion and laying flat worsen her symptoms. Inhalers have provided no relief. She has also gained 7 pounds in the past few days. The patient denies any recent fevers above 100.4 degrees or cough with productive sputum. She does still make some urine. She denies any recent swelling of the legs. The patient also denies headache, change in vision, nausea, vomiting, diarrhea, pain with urination, and melena. Source of History: patient Onset: last night Position: chest Timing: worsening Modifying Factors (Worsening): rest (laying flat), exertion Modifying Factors (Relieving): other (inhalers) Associated Symptoms: + chest pain, No fevers, No headache, No nausea, No vomiting, No melena, No diarrhea, No urinary symptoms Review of Systems See HPI for pertinent positives & negatives. A total of 10 systems reviewed and were otherwise negative. Past Medical & Surgical Medical Problems: (1) Anemia (2) CKD (chronic kidney disease) stage V requiring chronic dialysis (3) Diastolic CHF (4) DM2 (diabetes mellitus, type 2) (5) FSGS (focal segmental glomerulosclerosis) (6) HTN (hypertension) (7) Migraine (8) Peritoneal dialysis catheter in place (9) Pulmonary embolism (10) Renal failure Surgical Problems: (1) H/O knee surgery (2) H/O tubal ligation (3) H/O: (4) Kidney transplant status, living related donor Family History Blood clots FATHER BROTHER Crohn's disease FATHER Diabetes mellitus MOTHER Hypertension SISTER Social History Smoking Status: Current Every Day Smoker Alcohol Use: none Drug Use: none Marital Status: Housing Status: lives with friends Occupation Status: unemployed Current/Historical Medications Scheduled Amlodipine Besylate (Amlodipine Besylate), 10 MG PO DAILY Calcitriol (Calcitriol), 2 CAP PO QAM Calcium Acetate (Phoslo 667 Mg), 3 CAP PO WM Calcium Acetate (Phoslo 667 Mg), 2 CAP PO WITH SNACKS Calcium Carbonate (Tums), 1,500 MG PO HS Carvedilol (Carvedilol), 25 MG PO BID Escitalopram Oxalate (Escitalopram Oxalate), 20 MG PO DAILY Famotidine (Pepcid), 40 MG PO QAM Lisinopril (Zestril), 20 MG PO BID Mirtazapine (Remeron), 30 MG PO HS Trazodone Hcl (Trazodone), 50 MG PO HS Scheduled PRN Albuterol Hfa (Ventolin Hfa), 2 PUFFS INH Q4H PRN for SOB/Wheezing Benzonatate (Benzonatate), 100 MG PO Q8 PRN for Cough Fluticasone Propionate (Nasal) (Flonase Allergy Relief), 2 SPRAYS FRED DAILY PRN for Nasal Congestion Allergies Coded Allergies: Cefaclor (Verified Allergy, Intermediate, Rash, 05/19/17) Reported by PT. Amoxicillin (Verified Adverse Reaction, Mild, VOMITING, 05/19/17) Clavulanic Acid (Verified Adverse Reaction, Mild, VOMITING, 05/19/17) Physical Exam Vital Signs Date Time Temp Pulse Resp B/P (MAP) Pulse Ox O2 Delivery O2 Flow Rate FiO2 05/19/17 12:20 36.7 92 18 187/122 98 Room Air 05/19/17 10:58 97 Room Air 05/19/17 10:52 94 18 173/119 97 Room Air 05/19/17 10:02 90 18 190/117 98 Room Air 05/19/17 08:55 98 05/19/17 08:54 36.0 95 18 189/129 98 Room Air Physical Exam GENERAL: Patient is alert, sitting up in bed, disheveled, chronically ill- appearing, in no acute distress and talking in full sentences. EYE EXAM: normal conjunctiva OROPHARYNX: no exudate, no erythema, lips, buccal mucosa, and tongue normal and mucous membranes are moist NECK: supple, no nuchal rigidity, no adenopathy, non-tender. No JVD LUNGS: Clear to auscultation. Normal chest wall mechanics HEART: no murmurs, S1 normal and S2 normal CHEST: Multiple old port scars ABDOMEN: PD catheter in LLQ, abdomen soft, non-tender, normo-active bowel sounds , no masses, no rebound or guarding. BACK: Back is symmetrical on inspection and there is no deformity, no midline tenderness, no CVA tenderness. SKIN: no rashes and no bruising UPPER EXTREMITIES: upper extremities are grossly normal. LOWER EXTREMITIES: No pitting edema. NEURO EXAM: Normal sensorium, cranial nerves II-XII grossly intact, normal speech, no gross weakness of arms, no gross weakness of legs. Gross sensation intact. Medical Decision & Procedures ER Provider Diagnostic Interpretation: Radiology results as stated below per my review and the radiologist's interpretation: CHEST 2 VIEWS ROUTINE CLINICAL HISTORY: sob dyspnea COMPARISON STUDY: 05/23/2017 FINDINGS: Congestive failure considered subacute progressive from the prior exam. Small left pleural effusion. Increased prominence of pulmonary vasculature. IMPRESSION: Congestive heart failure mildly progressive from the prior study. Small left pleural effusion. The above report was generated using voice recognition software. It may contain grammatical, syntax or spelling errors. Electronically signed by: Adolph Rizo M.D. 05/19/2017 10:22 AM Laboratory Results 05/19/17 09:10 Red Blood Count 3.20, Mean Corpuscular Volume 94.4, Mean Corpuscular Hemoglobin 31.3, Mean Corpuscular Hemoglobin Concent 33.1, Mean Platelet Volume 9.2, Neutrophils (%) (Auto) 69.2, Lymphocytes (%) (Auto) 14.0, Monocytes (%) (Auto) 7.5, Eosinophils (%) (Auto) 8.7, Basophils (%) (Auto) 0.2, Neutrophils # (Auto) 3.52, Lymphocytes # (Auto) 0.71, Monocytes # (Auto) 0.38, Eosinophils # (Auto) 0.44, Basophils # (Auto) 0.01 05/19/17 09:10 Test 05/19/17 09:10 05/19/17 09:16 White Blood Count 5.08 K/uL (4.8-10.8) Red Blood Count 3.20 M/uL (4.2-5.4) Hemoglobin 10.0 g/dL (12.0-16.0) Hematocrit 30.2 % (37-47) Mean Corpuscular Volume 94.4 fL (80-100) Mean Corpuscular Hemoglobin 31.3 pg (25-34) Mean Corpuscular Hemoglobin Concent 33.1 g/dl (32-36) Platelet Count 86 K/uL (130-400) Mean Platelet Volume 9.2 fL (7.4-10.4) Neutrophils (%) (Auto) 69.2 % Lymphocytes (%) (Auto) 14.0 % Monocytes (%) (Auto) 7.5 % Eosinophils (%) (Auto) 8.7 % Basophils (%) (Auto) 0.2 % Neutrophils # (Auto) 3.52 K/uL (1.4-6.5) Lymphocytes # (Auto) 0.71 K/uL (1.2-3.4) Monocytes # (Auto) 0.38 K/uL (0.11-0.59) Eosinophils # (Auto) 0.44 K/uL (0-0.5) Basophils # (Auto) 0.01 K/uL (0-0.2) RDW Standard Deviation 57.3 fL (36.4-46.3) RDW Coefficient of Variation 16.8 % (11.5-14.5) Immature Granulocyte % (Auto) 0.4 % Immature Granulocyte # (Auto) 0.02 K/uL (0.00-0.02) Nucleated RBC Absolute Count (auto) 0.00 K/uL (0-0) Nucleated Red Blood Cells % 0.0 % Platelet Estimate DECREASED Tear Drop Cells 1+ Ovalocytes 1+ Anion Gap 11.0 mmol/L (3-11) Est Creatinine Clear Calc Drug Dose 8.9 ml/min Estimated GFR () 4.8 Estimated GFR (Non- 4.1 BUN/Creatinine Ratio 3.4 (10-20) Calcium Level 7.5 mg/dl (8.5-10.1) Total Bilirubin 0.5 mg/dl (0.2-1) Aspartate Amino Transf (AST/SGOT) 23 U/L (15-37) Alanine Aminotransferase (ALT/SGPT) 29 U/L (12-78) Alkaline Phosphatase 69 U/L (45-117) Troponin I 0.053 ng/ml (0-0.045) Pro-B-Type Natriuretic Peptide > 96348 pg/ml (0-450) Total Protein 6.0 gm/dl (6.4-8.2) Albumin 2.7 gm/dl (3.4-5.0) Globulin 3.3 gm/dl (2.5-4.0) Albumin/Globulin Ratio 0.8 (0.9-2) Bedside Lactic Acid Venous 0.63 mmol/L (0.90-1.70) Laboratory results per my review. Medications Administered Medications (Trade) Dose Ordered Sig/Sachin Route Start Time Stop Time Status Last Admin Dose Admin Acetaminophen (Tylenol Tab) 650 mg Q4H PRN PO 05/19/17 11:45 06/18/17 11:44 05/19/17 13:45 650 MG Clonidine HCl (Catapres Tab) 0.1 mg Q6 PRN PO 05/19/17 11:45 06/18/17 11:44 05/19/17 13:44 0.1 MG ECG Indication: SOB/dyspnea Rate (beats per minute): 95 Rhythm: sinus rhythm Findings: other (Normal axis, prolonged WTC) Change: no significant change (from 05/17/2017) ED Course ED COURSE: Vital signs were reviewed and showed the patient is hypertensive. The patients medical record was reviewed The above diagnostic studies were performed and reviewed. ED treatments and interventions as stated above. 0924: The patient was evaluated in room A12. A complete history and physical examination was performed. 0935: A bedside ultrasound shows no pericardial effusion. 1028: I discussed the patients case with Rigo [facility]. He recommends evaluation by the hospital medicine team and he will do hemodialysis. 1041: I discussed the patients case with Rigo Shepherd Hospitalist. The patient will be further evaluated. 1050: Upon reevaluation, the patient is resting comfortably. I discussed my findings with the patient and she understands and agrees with the treatment plan Based on the patients age, coexisting illnesses, exam and lab findings the decision to treat as an inpatient was made. The patient remained stable while under my care. The patient will be evaluated for further management. Medical Decision Differential diagnoses includes but is not limited to acute coronary syndrome, myocardial infarction, pericarditis, pulmonary embolus, aortic dissection, pneumonia, pneumothorax, musculoskeletal, shingles, esophageal. Patient is a 31-year-old female who presents to ER with shortness of breath. She was just discharged from the hospital on Saturday. She is dialysis dependent and does peritoneal dialysis possibly switching to HD. Labs were obtained chest x-ray is slightly worsened showing worsening edema. Troponin was slightly increased from her baseline as well. EKG was unchanged. BNP was significantly elevated greater than 35,000. This patient has multiple ER visits. I believe that she is completely noncompliant with her PD and would probably best be served by HD so she can be monitored closely with these recurrent ER visits. Discussed with nephrology who recommends admission and they'll perform HD. Medication Reconcilliation Current Medication List: was personally reviewed by me Blood Pressure Screening Patient's blood pressure: Elevated blood pressure Blood pressure disposition: Referred to PCP Consults Time Called: 1035 Consulting Physician: Rigo Shepherd Hospitalist Returned Call: [phone] I discussed the patients case with Rigo Shepherd. The patient will be further evaluated. Additional Consults: Time Called: 1025 Consulted Physician: [facility] Returned Call: [phone] Additional Comments: I discussed the patients case with Rigo [facility]. He recommends evaluation by the hospital medicine team and he will do hemodialysis. Impression Primary Impression: Volume overload Additional Impression: Elevated troponin Scribe Attestation The scribe's documentation has been prepared under my direction and personally reviewed by me in its entirety. I confirm that the note above accurately reflects all work, treatment, procedures, and medical decision making performed by me. Departure Information Dispostion Being Evaluated By Hospitalist Referrals Adolph Aldridge M.D. (PCP) Patient Instructions My [facility] Problem Qualifiers Primary Impression: Volume overload Hypervolemia type: unspecified Qualified Codes: E87.70 - Fluid overload, unspecified
[2017-05-19] MEDS: HYDROmorphone INJ 0.5 MG/0.5 ML SYR IV PRN ×2 (15:06→23:10)
[2017-05-19] MEDS: CALCIUM ACETATE 667MG GELCAP PO SCH (16:24)
[2017-05-19] MEDS ORDERED: MIRTAZAPINE TAB 15 MG TAB PO SCH (21:00)
[2017-05-19] MEDS ORDERED: TRAZODONE HCL 50 MG TAB PO SCH (21:00)
[2017-05-19] MEDS: CALCIUM CARBONATE 500 MG CHEWABLE PO SCH (22:21)
[2017-05-19] MEDS: CARVEDILOL 25 MG TAB PO SCH (22:22)
[2017-05-19] MEDS: LISINOPRIL 20 MG TAB PO SCH (22:22)
[2017-05-19] MEDS: LORAZEPAM 1 MG TAB PO PRN (23:09)
[2017-05-20] VITALS (11 sets, daily range): BP systolic 132–182; BP diastolic 90–114; PULSE 72–83; TEMP 36.7–37.1; O2SAT 96–97
[2017-05-20 02:35] LABS: CKMB/CK RATIO 1.1 (0-3.0)
[2017-05-20] MEDS ORDERED: HydrALAZINE HCL 20 MG/ML VIAL IV. PRN (03:30)
[2017-05-20] MEDS ORDERED: HYDROmorphone INJ 0.5 MG/0.5 ML SYR IV ONE (03:30)
[2017-05-20] MEDS ORDERED: EPOETIN ALFA 10,000 UNITS/ML VIAL IV. SCH (06:00)
[2017-05-20] MEDS: ACETAMINOPHEN 325 MG TAB PO PRN (06:05)
--- NOTE | 2017-05-20 06:09 | Nephrology Progress Note ---
Nephrology Progress Note Date of Service: May 20, 2017. Subjective 31 yo female with esrd on pd who was previously on hemodialysis and was doing well at the dialysis unit. pt though has had many admissions over the past 6 weeks for fluid overload, abdominal pain, arm pain, hypertension. pt had hemodialysis yesterday and had peritoneal dialysis overnight. pt with cramping from fluid removal. otherwise doing well. she is to get red bags tomorrow. Objective Date Time Temp Pulse Resp B/P (MAP) Pulse Ox O2 Delivery O2 Flow Rate FiO2 05/20/17 04:00 Room Air 05/20/17 03:03 36.7 73 18 174/113 (133) 97 Room Air 05/19/17 23:59 Room Air 05/19/17 23:13 36.9 79 18 160/99 (119) 94 Room Air 05/19/17 20:00 Room Air 05/19/17 19:39 37.4 78 22 174/112 (132) 96 Room Air 05/19/17 19:22 36.8 81 180/111 (134) 05/19/17 18:41 36.8 81 180/111 (134) 05/19/17 17:45 84 164/104 05/19/17 17:30 83 177/111 05/19/17 17:15 83 164/105 05/19/17 17:00 85 181/111 05/19/17 16:45 82 182/112 05/19/17 16:30 82 169/115 05/19/17 16:15 81 172/113 05/19/17 16:00 79 167/107 05/19/17 16:00 100 Room Air 05/19/17 16:00 37.2 96 22 163/104 (123) 98 Room Air 05/19/17 15:45 82 164/105 05/19/17 15:41 37.2 96 22 163/104 (123) 98 Room Air 05/19/17 15:30 85 174/106 05/19/17 15:15 79 156/99 05/19/17 15:00 82 163/104 05/19/17 14:45 85 163/112 05/19/17 14:30 84 172/109 05/19/17 14:15 37.2 83 165/110 (128) 05/19/17 12:47 37.1 92 18 188/122 (144) 100 Room Air 05/19/17 12:20 36.7 92 18 187/122 98 Room Air 05/19/17 10:58 97 Room Air 05/19/17 10:52 94 18 173/119 97 Room Air 05/19/17 10:02 90 18 190/117 98 Room Air 05/19/17 08:55 98 05/19/17 08:54 36.0 95 18 189/129 98 Room Air Physical Exam: General-aaox3 Eyes-no scleral icterus ENT-mmm Neck-supple Lungs-cta Heart-rrr Abdomen-bs+ s/nt/+pd catheter Extremities-no c/c/e Neuro-nonfocal Current Inpatient Medications Medications (Trade) Dose Ordered Sig/Sachin Route Start Time Stop Time Status Last Admin Dose Admin Acetaminophen (Tylenol Tab) 650 mg Q4H PRN PO 05/19/17 11:45 06/18/17 11:44 05/19/17 18:35 650 MG Nitroglycerin (Nitrostat Tab) 0.4 mg UD PRN SL 05/19/17 11:45 06/18/17 11:44 Albuterol (Ventolin Hfa Inhaler) 2 puffs Q4H PRN INH 05/19/17 11:45 06/18/17 11:44 Amlodipine Besylate (Norvasc Tab) 10 mg DAILY PO 05/20/17 09:00 06/19/17 08:59 Benzonatate (Tessalon Perles Cap) 100 mg Q8 PRN PO 05/19/17 11:45 06/18/17 11:44 Calcium Acetate (Phoslo Cap) 2,001 mg TIDM PO 05/19/17 16:45 06/18/17 16:44 05/19/17 16:24 2,001 MG Calcium Carbonate (Tums Chew Tab) 1,500 mg HS PO 05/19/17 21:00 06/18/17 20:59 05/19/17 22:21 1,500 MG Carvedilol (Coreg Tab) 25 mg BID PO 05/19/17 21:00 06/18/17 20:59 05/19/17 22:22 25 MG Famotidine (Pepcid Tab) 40 mg QAM PO 05/20/17 09:00 06/19/17 08:59 Fluticasone Propionate (Flonase Nasal Pe Ell) 2 sprays DAILY PRN FRED 05/19/17 11:45 06/18/17 11:44 Lisinopril (Zestril Tab) 20 mg BID PO 05/19/17 21:00 06/18/17 20:59 05/19/17 22:22 20 MG Calcitriol (Rocaltrol Cap) 0.5 mcg QAM PO 05/20/17 09:00 06/19/17 08:59 Calcium Acetate (Phoslo Cap) 1,334 mg UD PRN PO 05/19/17 11:45 06/18/17 11:44 Clonidine HCl (Catapres Tab) 0.1 mg Q6 PRN PO 05/19/17 11:45 06/18/17 11:44 05/19/17 17:15 0.1 MG Promethazine HCl 12.5 mg/Sodium Chloride 50.5 ml @ 204 mls/hr Q6H PRN IV 05/19/17 11:45 06/18/17 11:44 Hydromorphone HCl (Dilaudid Inj) 0.5 mg Q8 PRN IV 05/19/17 13:30 06/02/17 13:29 05/19/17 23:10 0.5 MG Lorazepam (Ativan Tab) 1 mg HS PRN PO 05/19/17 22:30 06/18/17 22:29 05/19/17 23:09 1 MG Hydralazine HCl (HydrALAZINE INJ) 10 mg Q6H PRN IV. 05/20/17 03:30 06/19/17 03:29 05/20/17 04:01 10 MG Last 24 Hours Test 05/19/17 09:10 05/19/17 09:16 05/19/17 18:25 05/20/17 01:38 White Blood Count 5.08 K/uL Red Blood Count 3.20 M/uL Hemoglobin 10.0 g/dL Hematocrit 30.2 % Mean Corpuscular Volume 94.4 fL Mean Corpuscular Hemoglobin 31.3 pg Mean Corpuscular Hemoglobin Concent 33.1 g/dl Platelet Count 86 K/uL Mean Platelet Volume 9.2 fL Neutrophils (%) (Auto) 69.2 % Lymphocytes (%) (Auto) 14.0 % Monocytes (%) (Auto) 7.5 % Eosinophils (%) (Auto) 8.7 % Basophils (%) (Auto) 0.2 % Neutrophils # (Auto) 3.52 K/uL Lymphocytes # (Auto) 0.71 K/uL Monocytes # (Auto) 0.38 K/uL Eosinophils # (Auto) 0.44 K/uL Basophils # (Auto) 0.01 K/uL RDW Standard Deviation 57.3 fL RDW Coefficient of Variation 16.8 % Immature Granulocyte % (Auto) 0.4 % Immature Granulocyte # (Auto) 0.02 K/uL Nucleated RBC Absolute Count (auto) 0.00 K/uL Nucleated Red Blood Cells % 0.0 % Platelet Estimate DECREASED Tear Drop Cells 1+ Ovalocytes 1+ Sodium Level 141 mmol/L Potassium Level 3.9 mmol/L Chloride Level 102 mmol/L Carbon Dioxide Level 28 mmol/L Anion Gap 11.0 mmol/L Blood Urea Nitrogen 38 mg/dl Creatinine 11.00 mg/dl Est Creatinine Clear Calc Drug Dose 8.9 ml/min Estimated GFR () 4.8 Estimated GFR (Non- 4.1 BUN/Creatinine Ratio 3.4 Random Glucose 95 mg/dl Calcium Level 7.5 mg/dl Total Bilirubin 0.5 mg/dl Aspartate Amino Transf (AST/SGOT) 23 U/L Alanine Aminotransferase (ALT/SGPT) 29 U/L Alkaline Phosphatase 69 U/L Troponin I 0.053 ng/ml 0.034 ng/ml 0.034 ng/ml Pro-B-Type Natriuretic Peptide > 30464 pg/ml Total Protein 6.0 gm/dl Albumin 2.7 gm/dl Globulin 3.3 gm/dl Albumin/Globulin Ratio 0.8 Bedside Lactic Acid Venous 0.63 mmol/L Total Creatine Kinase 67 U/L 53 U/L Creatine Kinase MB < 0.5 ng/ml 0.6 ng/ml Creatine Kinase MB Ratio 1.1 Test 05/20/17 04:44 Assessment & Plan ESRD-bun and creatinine are much better compared to previous admissions. was previously in the 20s and now in the 11s. facial puffiness much improved as well. Reinforced importance of fluid restriction. pt would like to continue to try to do pd. HTN: goal bp is under 140/90, bp diastolic continues to be in the low 100s. would like to try to control bp better. have been taking off much more fluid although bnp still >80929. have increased norvasc from 5 to 10 and doubled the coreg. on max dose of lisinopril. would like to add hydralazine now to the regimen. pt did have one admission for hypotension as well with systolics in the 70s and had her bp meds reduced in the past. plan to do peritoneal dialysis tonight with all greens since she is cramping and work on titrating up bp meds to get diastolics in the 90s.
[2017-05-20] MEDS: CALCIUM ACETATE 667MG GELCAP PO SCH ×3 (07:07→15:27)
[2017-05-20] MEDS: HYDROmorphone INJ 0.5 MG/0.5 ML SYR IV PRN ×3 (07:13→23:32)
[2017-05-20 07:20] LABS: HEMATOCRIT 34.3 % (37-47); MEAN CELL VOLUME 95.3 fL (80-100); MEAN CORPUSCULAR HEMOGLOBIN 30.3 pg (25-34); MEAN CORPUSCULAR HGB CONC 31.8 g/dl (32-36); WHITE BLOOD COUNT 4.27 K/uL (4.8-10.8)
[2017-05-20 07:21] LABS: MEAN PLATELET VOLUME 10.2 fL (7.4-10.4); PLATELET COUNT 102 K/uL (130-400)
[2017-05-20] MEDS ORDERED: NURSING VERBAL MED ORDER ONE (08:00)
[2017-05-20 08:01] LABS: BUN/CREATININE RATIO 2.7 (10-20); CALCIUM 8.3 mg/dl (8.5-10.1); CHOLESTEROL/HDL RATIO 4.2; CREATININE 6.8 mg/dl (0.60-1.20); MAGNESIUM 1.9 mg/dl (1.8-2.4); POTASSIUM 3.4 mmol/L (3.5-5.1)
[2017-05-20] MEDS: CARVEDILOL 25 MG TAB PO SCH ×2 (08:14→20:03)
[2017-05-20] MEDS: CALCITRIOL 0.25 MCG CAP PO SCH (08:14)
[2017-05-20] MEDS: LISINOPRIL 20 MG TAB PO SCH ×2 (08:15→20:03)
[2017-05-20] MEDS: FAMOTIDINE 20 MG TAB PO SCH (08:16)
[2017-05-20] MEDS: AMLODIPINE BESYLATE 5 MG TAB PO SCH (08:16)
[2017-05-20] MEDS ORDERED: ESCITALOPRAM OXALATE 20 MG TAB PO SCH (09:00)
[2017-05-20] MEDS: CALCIUM CARBONATE 500 MG CHEWABLE PO SCH (20:03)
--- NOTE | 2017-05-20 22:44 | Progress Note ---
Internal Med Progress Note Date of Service: May 20, 2017. Provider Documentation: SUBJECTIVE: no complain of SOB or orthopnea feels fine getting peritoneal dialysis at night OBJECTIVE: Vital Signs-as noted below Exam: General-no sign of distress Eyes-sclera non icteric ENT-no JVD Neck-no rales or wheeze Lungs-diminished Heart-regular S1/S2 Abdomen-soft, non tender Extremities-trace bilateral lower ext edema Neuro-AAO x3 , no focal deficit Lab data as noted below. ASSESSMENT & PLAN: SOB /VOLUME OVERLOAD /ACUTE CHF WITH DIASTOLIC FAILURE : due to non compliance with dialysis pt is on Peritoneal dialysis at home has been using the wrong bags dietary indiscretion -drinking a lot of Soda almost 2-3 L of fluid presented with generalized swelling , SOB , [facility] nephrology consulted -appreciate input s/p HD , followed by peritoneal dialysis at night vol status much improved, no complain of SOB or orthopnea d/w pt regarding option of doing HD only to prevent vol overload /repeat admission to hospital with CHF has functioning AV fistula pt is not able to tolerate HD due to leg cramps also she is looking for a job -having PD at night better will not be able to get a job if needs to have HD X3 week pt mentions she will be getting her PD machine delivered this Saturday will follow with fluid restrictions ESRD ON HD : hx of renal failure due to FSGS , failed renal transplant follows with nephrology Dr Jo pt been poorly complaint with dialysis -requiring recurrent admission at [facility] Appreciate Nephrology input S/P hemodialysis with removal of 6 L of fluid pt will be continued on PD tonight ACCELERATED HTN : due to ESRD /vol overload antihypertensives adjusted by nephrology Norvasc dose increased to 10 mg daily Coreg increased to 25 mg BID on Max dose of lisinopril 20 mg BID added Hydralazine 25 mg BID PROLONG QTC ; Qtc > 500 hold medication than can worsen prolongation SSRI /Trazodone /Zofran /TCA -Remeron -d/johnny repeat EKG in AM follow lyes -K /MG closely monitor in tele RECURRENT CHEST PAIN : symptom has resolved due to above -decompensated CHF /vol overload pt's symptom very atypical for angina mild elevation of troponin possible due to demand ischemia recent ECHO on 04/18/17 : EF 60-65% , grade 2 diastolic dysfunction no wall motion abnormality recent Dobutamine stress test in 2016 was negative for stress induced ischemia FULL CODE DVT PROPHYLAXIS : Sub q heparin DISPOSITION : possible discharged home tomorrow Medicine follow up with Dr Aldridge Nephrology follow up with Dr Jo Vital Signs: Date Time Temp Pulse Resp B/P (MAP) Pulse Ox O2 Delivery O2 Flow Rate FiO2 05/20/17 23:57 37.0 79 22 182/114 (136) 97 Room Air 05/20/17 20:00 Room Air 05/20/17 19:49 37.0 77 22 154/106 (122) 96 Room Air 05/20/17 19:14 36.9 77 154/106 (122) 05/20/17 16:00 Room Air 05/20/17 15:25 37.1 77 22 159/90 (113) 96 Room Air 05/20/17 12:00 Room Air 05/20/17 11:54 36.7 83 20 151/101 (118) 97 Room Air 05/20/17 10:51 37.1 77 18 132/102 (112) 97 Room Air 05/20/17 08:25 Room Air 05/20/17 08:15 36.8 72 18 136/101 (113) 05/20/17 08:00 97 Room Air 05/20/17 07:17 36.8 72 18 136/101 (113) 97 Room Air 05/20/17 06:24 138/101 (113) 05/20/17 04:00 Room Air 05/20/17 03:03 36.7 73 18 174/113 (133) 97 Room Air Lab Results: Results Past 24 Hours Test 05/20/17 01:38 05/20/17 06:43 Range/Units Total Creatine Kinase 53 26-192 U/L Creatine Kinase MB 0.6 0.5-3.6 ng/ml Creatine Kinase MB Ratio 1.1 0-3.0 Troponin I 0.034 0-0.045 ng/ml White Blood Count 4.27 4.8-10.8 K/uL Red Blood Count 3.60 4.2-5.4 M/uL Hemoglobin 10.9 12.0-16.0 g/dL Hematocrit 34.3 37-47 % Mean Corpuscular Volume 95.3 80-100 fL Mean Corpuscular Hemoglobin 30.3 25-34 pg Mean Corpuscular Hemoglobin Concent 31.8 32-36 g/dl RDW Standard Deviation 57.4 36.4-46.3 fL RDW Coefficient of Variation 16.6 11.5-14.5 % Platelet Count 102 130-400 K/uL Mean Platelet Volume 10.2 7.4-10.4 fL Sodium Level 138 136-145 mmol/L Potassium Level 3.4 3.5-5.1 mmol/L Chloride Level 100 98-107 mmol/L Carbon Dioxide Level 30 21-32 mmol/L Anion Gap 8.0 3-11 mmol/L Blood Urea Nitrogen 18 7-18 mg/dl Creatinine 6.80 0.60-1.20 mg/dl Est Creatinine Clear Calc Drug Dose 13.5 ml/min Estimated GFR () 8.6 Estimated GFR (Non- 7.4 BUN/Creatinine Ratio 2.7 10-20 Random Glucose 165 70-99 mg/dl Calcium Level 8.3 8.5-10.1 mg/dl Magnesium Level 1.9 1.8-2.4 mg/dl Triglycerides Level 70 0-150 mg/dl Cholesterol Level 167 0-200 mg/dl HDL Cholesterol 40 mg/dl LDL Cholesterol, Calculated 113 mg/dl VLDL Cholesterol, Calculated 14 mg/dl Cholesterol/HDL Ratio 4.2
[2017-05-20] MEDS: CLONIDINE HCL 0.1 MG TAB PO PRN (23:32)
[2017-05-20] MEDS: LORAZEPAM 1 MG TAB PO PRN (23:35)
[2017-05-21] VITALS (7 sets, daily range): BP systolic 146–163; BP diastolic 86–112; PULSE 74–82; TEMP 36.6–37.2; O2SAT 96–98
[2017-05-21] MEDS ORDERED: APR25 PO (00:24)
[2017-05-21] MEDS ORDERED: VANCOMYCIN 1GM/270ML NSS IV STA (06:19)
--- NOTE | 2017-05-21 06:19 | Nephrology Progress Note ---
Nephrology Progress Note Date of Service: May 21, 2017. Subjective 31 yo female with esrd on pd who was previously on hemodialysis and was doing well at the dialysis unit. pt though has had a difficult time over the past 6 weeks. does manual exchanges at home and to get her cycler when she is discharged from here. pt on pd last night and somehow disconnected herself while sleeping. pt feels good. bp continues to be high. Objective Date Time Temp Pulse Resp B/P (MAP) Pulse Ox O2 Delivery O2 Flow Rate FiO2 05/21/17 04:00 36.6 77 22 160/112 (128) 98 Room Air 05/21/17 04:00 Room Air 05/21/17 02:40 74 146/91 (109) 05/21/17 00:00 Room Air 05/20/17 23:57 37.0 79 22 182/114 (136) 97 Room Air 05/20/17 20:00 Room Air 05/20/17 19:49 37.0 77 22 154/106 (122) 96 Room Air 05/20/17 19:14 36.9 77 154/106 (122) 05/20/17 16:00 Room Air 05/20/17 15:25 37.1 77 22 159/90 (113) 96 Room Air 05/20/17 12:00 Room Air 05/20/17 11:54 36.7 83 20 151/101 (118) 97 Room Air 05/20/17 10:51 37.1 77 18 132/102 (112) 97 Room Air 05/20/17 08:25 Room Air 05/20/17 08:15 36.8 72 18 136/101 (113) 05/20/17 08:00 97 Room Air 05/20/17 07:17 36.8 72 18 136/101 (113) 97 Room Air 05/20/17 06:24 138/101 (113) Physical Exam: General-aaox3 Eyes-no scleral icterus ENT-mmm Neck-supple Lungs-clear Heart-regular Abdomen-bs+ s/nt/+pd catheter Extremities-no c/c/e Neuro-nonfocal Current Inpatient Medications Medications (Trade) Dose Ordered Sig/Sachin Route Start Time Stop Time Status Last Admin Dose Admin Acetaminophen (Tylenol Tab) 650 mg Q4H PRN PO 05/19/17 11:45 06/18/17 11:44 05/20/17 06:05 650 MG Nitroglycerin (Nitrostat Tab) 0.4 mg UD PRN SL 05/19/17 11:45 06/18/17 11:44 Albuterol (Ventolin Hfa Inhaler) 2 puffs Q4H PRN INH 05/19/17 11:45 06/18/17 11:44 Amlodipine Besylate (Norvasc Tab) 10 mg DAILY PO 05/20/17 09:00 06/19/17 08:59 05/20/17 08:16 10 MG Benzonatate (Tessalon Perles Cap) 100 mg Q8 PRN PO 05/19/17 11:45 06/18/17 11:44 Calcium Acetate (Phoslo Cap) 2,001 mg TIDM PO 05/19/17 16:45 06/18/17 16:44 05/20/17 15:27 2,001 MG Calcium Carbonate (Tums Chew Tab) 1,500 mg HS PO 05/19/17 21:00 06/18/17 20:59 05/20/17 20:03 1,500 MG Carvedilol (Coreg Tab) 25 mg BID PO 05/19/17 21:00 06/18/17 20:59 05/20/17 20:03 25 MG Famotidine (Pepcid Tab) 40 mg QAM PO 05/20/17 09:00 06/19/17 08:59 05/20/17 08:16 40 MG Fluticasone Propionate (Flonase Nasal [place]) 2 sprays DAILY PRN FRED 05/19/17 11:45 06/18/17 11:44 Lisinopril (Zestril Tab) 20 mg BID PO 05/19/17 21:00 06/18/17 20:59 05/20/17 20:03 20 MG Calcitriol (Rocaltrol Cap) 0.5 mcg QAM PO 05/20/17 09:00 06/19/17 08:59 05/20/17 08:14 0.5 MCG Calcium Acetate (Phoslo Cap) 1,334 mg UD PRN PO 05/19/17 11:45 06/18/17 11:44 Clonidine HCl (Catapres Tab) 0.1 mg Q6 PRN PO 05/19/17 11:45 06/18/17 11:44 05/20/17 23:32 0.1 MG Promethazine HCl 12.5 mg/Sodium Chloride 50.5 ml @ 204 mls/hr Q6H PRN IV 05/19/17 11:45 06/18/17 11:44 Hydromorphone HCl (Dilaudid Inj) 0.5 mg Q8 PRN IV 05/19/17 13:30 06/02/17 13:29 05/20/17 23:32 0.5 MG Lorazepam (Ativan Tab) 1 mg HS PRN PO 05/19/17 22:30 06/18/17 22:29 05/20/17 23:35 1 MG Hydralazine HCl (HydrALAZINE INJ) 10 mg Q6H PRN IV. 05/20/17 03:30 06/19/17 03:29 05/20/17 04:01 10 MG Diphenhydramine HCl (Benadryl Cap) 25 mg Q8 PRN PO 05/20/17 08:00 06/19/17 07:59 05/20/17 08:17 25 MG Hydralazine HCl (Apresoline Tab) 50 mg BID PO 05/21/17 09:00 06/19/17 08:59 UNV Last 24 Hours Test 05/20/17 06:43 05/21/17 04:44 White Blood Count 4.27 K/uL Red Blood Count 3.60 M/uL Hemoglobin 10.9 g/dL Hematocrit 34.3 % Mean Corpuscular Volume 95.3 fL Mean Corpuscular Hemoglobin 30.3 pg Mean Corpuscular Hemoglobin Concent 31.8 g/dl RDW Standard Deviation 57.4 fL RDW Coefficient of Variation 16.6 % Platelet Count 102 K/uL Mean Platelet Volume 10.2 fL Sodium Level 138 mmol/L Potassium Level 3.4 mmol/L Chloride Level 100 mmol/L Carbon Dioxide Level 30 mmol/L Anion Gap 8.0 mmol/L Blood Urea Nitrogen 18 mg/dl Creatinine 6.80 mg/dl Est Creatinine Clear Calc Drug Dose 13.5 ml/min Estimated GFR () 8.6 Estimated GFR (Non- 7.4 BUN/Creatinine Ratio 2.7 Random Glucose 165 mg/dl Calcium Level 8.3 mg/dl Magnesium Level 1.9 mg/dl Triglycerides Level 70 mg/dl Cholesterol Level 167 mg/dl HDL Cholesterol 40 mg/dl LDL Cholesterol, Calculated 113 mg/dl VLDL Cholesterol, Calculated 14 mg/dl Cholesterol/HDL Ratio 4.2 Assessment & Plan ESRD-on pd. pt disconnected while sleeping. increased risk of peritonitis. will give a dose of IV vancomycin now. will send for fluid culture and gram stain. took off about a liter. reinforced fluid restriction. to get cycler tomorrow as outpt. HTN: goal bp is under 140/90, bp diastolic continues to be in the low 100s. was hoping to have better diastolic bp readings. will titrate up the hydralazine to 50mg po bid. ok from renal perspective to go home. will follow closely as outpt, adjusting meds and trying to remove appropriate amount of fluid on peritoneal dialysis.
[2017-05-21] MEDS ORDERED: VANCOMYCIN INJ 1,750 MG in SODIUM CHLORIDE 0.9% 500ML 500 ML IV SCH (06:45)
[2017-05-21] MEDS ORDERED: VANCOMYCIN CONSULT ACTIVE PRN (06:45)
[2017-05-21 07:01] LABS: HEMATOCRIT 30.4 % (37-47); MEAN CELL VOLUME 93.8 fL (80-100); MEAN CORPUSCULAR HEMOGLOBIN 30.9 pg (25-34); MEAN CORPUSCULAR HGB CONC 32.9 g/dl (32-36); RED BLOOD COUNT 3.24 M/uL (4.2-5.4); WHITE BLOOD COUNT 4.17 K/uL (4.8-10.8)
[2017-05-21 07:08] LABS: MEAN PLATELET VOLUME 9.8 fL (7.4-10.4); PLATELET COUNT 92 K/uL (130-400)
[2017-05-21] MEDS: HYDROmorphone INJ 0.5 MG/0.5 ML SYR IV PRN ×2 (07:30→15:36)
[2017-05-21] MEDS: AMLODIPINE BESYLATE 5 MG TAB PO SCH (07:33)
[2017-05-21] MEDS: LISINOPRIL 20 MG TAB PO SCH (07:33)
[2017-05-21] MEDS: CALCITRIOL 0.25 MCG CAP PO SCH (07:33)
[2017-05-21] MEDS: CALCIUM ACETATE 667MG GELCAP PO SCH ×2 (07:35→11:16)
[2017-05-21] MEDS: CARVEDILOL 25 MG TAB PO SCH (07:36)
[2017-05-21 07:44] LABS: BUN/CREATININE RATIO 3.3 (10-20); CALCIUM 8.7 mg/dl (8.5-10.1); CREATININE 8.3 mg/dl (0.60-1.20); POTASSIUM 3.5 mmol/L (3.5-5.1)
[2017-05-21 08:24] LABS: FLUID APPEARANCE CLEAR; FLUID MONONUC 69.2 %; FLUID POLYNUC 30.8 %; FLUID RBC (A) < 3000 /uL; FLUID WBC (A) 42 /uL
[2017-05-21 08:34] LABS: HEPATITIS B AB NEG
--- NOTE | 2017-05-21 09:06 | Pharmacy Progress Note ---
Pharmacy Antibiotic Consult Date of Service: May 21, 2017. Pharmacy Dosing Scope Pharmacy is consulted to initiate Vancomycin IV dosing therapy, order appropriate labs and adjust drug dose/frequency. Subjective The patient is a 31 year old female admitted on May 19, 2017 at 12:39. Objective Height (Feet): 5 Height (Inches): 6.00 Weight (Kilograms): 88.900 Lab Results (24hrs): Test 05/21/17 06:34 05/21/17 06:45 White Blood Count 4.17 K/uL (4.8-10.8) Red Blood Count 3.24 M/uL (4.2-5.4) Hemoglobin 10.0 g/dL (12.0-16.0) Hematocrit 30.4 % (37-47) Mean Corpuscular Volume 93.8 fL (80-100) Mean Corpuscular Hemoglobin 30.9 pg (25-34) Mean Corpuscular Hemoglobin Concent 32.9 g/dl (32-36) RDW Standard Deviation 55.1 fL (36.4-46.3) RDW Coefficient of Variation 16.0 % (11.5-14.5) Platelet Count 92 K/uL (130-400) Mean Platelet Volume 9.8 fL (7.4-10.4) Sodium Level 138 mmol/L (136-145) Potassium Level 3.5 mmol/L (3.5-5.1) Chloride Level 100 mmol/L (98-107) Carbon Dioxide Level 31 mmol/L (21-32) Anion Gap 7.0 mmol/L (3-11) Blood Urea Nitrogen 27 mg/dl (7-18) Creatinine 8.30 mg/dl (0.60-1.20) Est Creatinine Clear Calc Drug Dose 11.0 ml/min Estimated GFR () 6.7 Estimated GFR (Non- 5.8 BUN/Creatinine Ratio 3.3 (10-20) Random Glucose 98 mg/dl (70-99) Calcium Level 8.7 mg/dl (8.5-10.1) Magnesium Level 2.0 mg/dl (1.8-2.4) Hepatitis B Surface Antigen NEG (NEG) Hepatitis B Surface Antibody NEG Body Fluid Source OTHER Body Fluid Color COLORLESS Body Fluid Appearance CLEAR Body Fluid WBC 42 /uL Body Fluid RBC < 3000 /uL Body Fluid Polynuclear WBCs (%) 30.8 % Body Fluid Mononuclear WBCs (%) 69.2 % Micro Results: Item Value Date Time Gram Stain Received 05/21/17 0680 Peritoneal Fluid Pending Assessment & Plan ASSESSMENT * Ms Arguello is a 31yo female admitted with SOB/dyspnea/acute CHF. 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 Patient had been on HD but was switched to PD recently. Pt is poorly compliant with dialysis as an outpatient. * Last evening, while PD occurring, patient somehow was disconnected. D/t increased risk of peritonitis, vancomycin was initiated. * Peritoneal fluid culture pending PLAN: Vancomycin * Loading dose: Vanc 1750 mg (~20mg/kg) IV X 1 dose * Goal trough level estimate: ~15 mcg/mL. * Will check a random vanc level tomorrow morning with am labs and re-dose when level is ~therapeutic Pharmacy will continue to follow and will adjust dose/frequency as necessary. Thank you
[2017-05-21] MEDS: FAMOTIDINE 20 MG TAB PO SCH (11:16)
--- NOTE | 2017-05-21 14:20 | Discharge Instructions ---
Discharge Instructions Date of Service May 21, 2017. Admission Reason for Admission: Diastolic Chf, Peritoneal Dialysis Catheter Discharge Discharge Diagnosis / Problem: ACUTE DECOMPENSATED CHF /VOLUME OVER LOAD / ESRD ON HD Discharge Goals Goal(s): Decrease discomfort, Improve disease control, Diagnostic testing, Therapeutic intervention Activity Recommendations Activity Limitations: resume your previous activity . Instructions / Follow-Up Instructions / Follow-Up HOSPITAL FOLLOW UP : 05/22/2017 3:30 PM Adolph Aldridge MD [facility] Call your Primary Care doctor if any of the following symptoms or problems start or get worse: * Shortness of breath or difficulty breathing * Wake up at night short of breath * Chest pain * Cough * Swelling of your hands, feet, or legs * More fatigued or tired with your normal activity * Palpitations - sudden fast heart beats WEIGHT * Weigh yourself every morning after using the bathroom. * Use the same scale. * Wear the same amount of clothing. * Write your weight down on a chart. * Call your Primary Care doctor if you gain more than 2-3 pounds in 1-2 days. MEDICATIONS * Use this discharge instruction sheet for medication instructions. * Take your medications at the time your doctor ordered. * Do not skip a dose of your medicines. * If you miss a dose of medicine, take it as soon as possible, but DO NOT DOUBLE A DOSE. * Read your medicine information when you get home. * Know all of the side effects of your medicine. If in doubt, ask your pharmacist * Call your Primary Care doctor's office if you have any side effects. * Be sure all of your doctors know what medicine and herbs you take (including cold, flu, and herbal medicine). Take the following with you to your follow-up doctor appointments: * Weight Chart * Medication List * List of questions Do not drink excessive alcohol, beer or wine. Current Hospital Diet Patient's current hospital diet: Renal Diet Discharge Diet Recommended Diet: Renal Diet Fluid Restriction: 1500 ml (6 cups) Pending Studies Studies pending at discharge: no Laboratory Results Lipid Panel Test 05/20/17 06:43 Range/Units Triglycerides Level 70 0-150 mg/dl Cholesterol Level 167 0-200 mg/dl HDL Cholesterol 40 mg/dl Cholesterol/HDL Ratio 4.2 LDL Cholesterol, Calculated 113 mg/dl Medical Emergencies . Who to Call and When: Call 911 or go to the Emergency Room if: * If at any time you feel your situation is an emergency * You have tightness or pain in your chest that does not go away with rest or Nitroglycerin * You are very short of breath even with rest . Non-Emergent Contact Non-Emergency issues call your: Primary Care Provider . . "Provider Documentation" section prepared by Rosario Chaidez. . VTE Core Measure Inpt VTE Proph given/why not?: Unfractionated heparin SQ
[2017-05-21] MEDS ORDERED: APR50 PO (15:28)
[2017-05-21] MEDS ORDERED: ATV1 PO (15:28)
[2017-05-21] MEDS ORDERED: ativan PO (16:06)
--- NOTE | 2017-05-21 17:00 | Progress Note ---
Internal Med Progress Note Date of Service: May 21, 2017. Provider Documentation: SUBJECTIVE: feel fine , no evidence of vol overload no fever or chills evaluated by Nephrology today stable to be discharged home OBJECTIVE: Vital Signs-as noted below Exam: General-no sign of distress Eyes-sclera non icteric ENT-no JVD Neck-no rales or wheeze Lungs-diminished Heart-regular S1/S2 Abdomen-soft, non tender Extremities-trace bilateral lower ext edema Neuro-AAO x3 , no focal deficit Lab data as noted below. ASSESSMENT & PLAN: SOB /VOLUME OVERLOAD /ACUTE CHF WITH DIASTOLIC FAILURE : symptom has resolved post dialysis presented with vol overload , Orthopnea , lower ext swelling , SOB , BADILLO pt is on Peritoneal dialysis at home has been using the wrong bags dietary indiscretion -drinking a lot of Soda almost 2-3 L of fluid nephrology consulted -appreciate input s/p HD , followed by peritoneal dialysis at night vol status much improved, no complain of SOB or orthopnea d/w pt regarding option of doing HD only to prevent vol overload /repeat admission to hospital with CHF has functioning AV fistula pt is not able to tolerate HD due to leg cramps also she is looking for a job -having PD at night better will not be able to get a job if needs to have HD X3 week pt mentions she will be getting her PD machine delivered this Saturday will follow with fluid restrictions evaluated by Nephrology -stable to be discharged home today ESRD ON PERITONEAL DIALYSIS : hx of renal failure due to FSGS , failed renal transplant follows with nephrology Dr Jo pt been poorly complaint with dialysis -requiring recurrent admission at [facility] Appreciate Nephrology input S/P hemodialysis with removal of 6 L of fluid pt will be continued on PD as out pt Dialyzer machine will be delivered to pt tomorrow ACCELERATED HTN : due to ESRD /vol overload antihypertensives adjusted by nephrology Norvasc dose increased to 10 mg daily Coreg increased to 25 mg BID on Max dose of lisinopril 20 mg BID Increased Hydralazine dose to 50 mg BID PROLONG QTC ; Qtc > 500 hold medication than can worsen prolongation SSRI /Trazodone /Zofran /TCA -Remeron -d/johnny pt is asked to follow up with her Psychiatrist to different medication for sleep that will not affect Qtc Lorazepam 0.5 mg HS prn for sleep given RECURRENT CHEST PAIN : symptom has resolved due to above -decompensated CHF /vol overload resolved after dialysis pt's symptom very atypical for angina mild elevation of troponin possible due to demand ischemia recent ECHO on 04/18/17 : EF 60-65% , grade 2 diastolic dysfunction no wall motion abnormality recent Dobutamine stress test in 2016 was negative for stress induced ischemia FULL CODE DVT PROPHYLAXIS : Sub q heparin DISPOSITION : discharged home today Medicine follow up with Dr Aldridge Nephrology follow up with Dr Jo Vital Signs: Date Time Temp Pulse Resp B/P (MAP) Pulse Ox O2 Delivery O2 Flow Rate FiO2 05/21/17 15:41 37.1 82 16 96 Room Air 05/21/17 15:31 37.1 82 16 154/98 (116) 96 Room Air 05/21/17 12:00 Room Air 05/21/17 11:55 37.2 75 18 163/86 (111) 96 Room Air 05/21/17 08:00 Room Air 05/21/17 07:45 37.0 76 16 156/98 (117) 96 Room Air 05/21/17 06:00 37.0 75 18 156/98 (117) 05/21/17 04:00 36.6 77 22 160/112 (128) 98 Room Air 05/21/17 04:00 Room Air 05/21/17 02:40 74 146/91 (109) 05/21/17 00:00 Room Air 05/20/17 23:57 37.0 79 22 182/114 (136) 97 Room Air 05/20/17 20:00 Room Air 05/20/17 19:49 37.0 77 22 154/106 (122) 96 Room Air 05/20/17 19:14 36.9 77 154/106 (122) Lab Results: Results Past 24 Hours Test 05/21/17 06:34 05/21/17 06:45 Range/Units White Blood Count 4.17 4.8-10.8 K/uL Red Blood Count 3.24 4.2-5.4 M/uL Hemoglobin 10.0 12.0-16.0 g/dL Hematocrit 30.4 37-47 % Mean Corpuscular Volume 93.8 80-100 fL Mean Corpuscular Hemoglobin 30.9 25-34 pg Mean Corpuscular Hemoglobin Concent 32.9 32-36 g/dl RDW Standard Deviation 55.1 36.4-46.3 fL RDW Coefficient of Variation 16.0 11.5-14.5 % Platelet Count 92 130-400 K/uL Mean Platelet Volume 9.8 7.4-10.4 fL Sodium Level 138 136-145 mmol/L Potassium Level 3.5 3.5-5.1 mmol/L Chloride Level 100 98-107 mmol/L Carbon Dioxide Level 31 21-32 mmol/L Anion Gap 7.0 3-11 mmol/L Blood Urea Nitrogen 27 7-18 mg/dl Creatinine 8.30 0.60-1.20 mg/dl Est Creatinine Clear Calc Drug Dose 11.0 ml/min Estimated GFR () 6.7 Estimated GFR (Non- 5.8 BUN/Creatinine Ratio 3.3 10-20 Random Glucose 98 70-99 mg/dl Calcium Level 8.7 8.5-10.1 mg/dl Magnesium Level 2.0 1.8-2.4 mg/dl Hepatitis B Surface Antigen NEG NEG Hepatitis B Surface Antibody NEG Body Fluid Source OTHER Body Fluid Color COLORLESS Body Fluid Appearance CLEAR Body Fluid WBC 42 /uL Body Fluid RBC < 3000 /uL Body Fluid Polynuclear WBCs (%) 30.8 % Body Fluid Mononuclear WBCs (%) 69.2 % Microbiology Results 05/21/17 Gram Stain - Final, Resulted 05/21/17 Wound Culture, Resulted Pending
--- NOTE | 2017-05-21 17:02 | Discharge Summary ---
Discharge Summary Date of Service May 21, 2017. Discharge Summary Admission Date: May 19, 2017 at 12:39 Discharge Date: May 22, 2017 Discharge Disposition: Home Principal Diagnosis: ACUTE DECOMPENSATED CHF /VOLUME OVER LOAD /ESRD ON HD Procedures: HEMODIALYSES PERITONEAL DIALYSIS Consultations: NEPHROLOGY DR MOTA Medication Reconciliation New Medications: Hydralazine HCl (Hydralazine HCl) 50 Mg Tab 1 TAB PO BID for 30 Days, #60 TABS 2 Refills [ativan] () 0.5 MG PO HS PRN for Sleep, #30 Continued Medications: Albuterol Hfa (Ventolin Hfa) 200 Puffs/43657 Mcg Aers 2 PUFFS INH Q4H PRN for SOB/Wheezing, INHALER Amlodipine Besylate (Amlodipine Besylate) 5 Mg Tab 10 MG PO DAILY, #30 Benzonatate (Benzonatate) 100 Mg Cap 100 MG PO Q8 PRN for Cough, #20 Calcitriol (Calcitriol) 0.5 Mcg Cap 2 CAP PO QAM, #60 Calcium Acetate (Phoslo 667 Mg) 667 Mg Cap 3 CAP PO WM, CAP TAKE 4 CAPSULES WITH MEALS Calcium Acetate (Phoslo 667 Mg) 667 Mg Cap 2 CAP PO WITH SNACKS, CAP TAKE 2 CAPSULES WITH SNACKS Calcium Carbonate (Tums) 500 Mg Chew 1500 MG PO HS Carvedilol (Carvedilol) 25 Mg Tab 25 MG PO BID for 30 Days, #60 TAB Famotidine (Pepcid) 40 Mg Tab 40 MG PO QAM, TAB Fluticasone Propionate (Nasal) (Flonase Allergy Relief) 50 Mcg/Act Spr 2 SPRAYS FRED DAILY PRN for Nasal Congestion Lisinopril (Zestril) 20 Mg Tab 20 MG PO BID, TAB Discontinued Medications: Escitalopram Oxalate (Escitalopram Oxalate) 20 Mg Tab 20 MG PO DAILY Mirtazapine (Remeron) 30 Mg Tab 30 MG PO HS Trazodone Hcl (Trazodone) 50 Mg Tab 50 MG PO HS, TAB Admission Information HPI (per Admitting provider): This is a 31 Yo F hx of FSGS-leading ERDS , s/p renal transplant in 2013 in [facility] , subsequent transplant failure in 2016 leading to back to HD was on HD before ,been followed with Dr Mota , recently switched to Peritoneal dialysis as pt could not tolerate HD due to leg cramps , her recent admission to [facility] was form May 15- with volume overload , acute decompensation of diastolic HF underwent HD while in hospital presents today with worsening of SOB , BADILLO , increased wt gain Cxray shows pulmonary congestion Nephrology updated -pt will undergo HD today Physical Exam (per Admitting): General Appearance: + pertinent finding (puffiness of face ) Head: normocephalic, atraumatic Respiratory/Chest: + respiratory distress, + crackles, + rales Cardiovascular: regular rate, rhythm, + JVD Abdomen/GI: non tender, soft Extremities/Musculoskelatal: + pedal edema (+ 2 ) Neurologic/Psych: alert, normal mood/affect, oriented x 3 Hospital Course SOB /VOLUME OVERLOAD /ACUTE CHF WITH DIASTOLIC FAILURE : symptom has resolved post dialysis presented with vol overload , Orthopnea , lower ext swelling , SOB , BADILLO pt is on Peritoneal dialysis at home has been using the wrong bags dietary indiscretion -drinking a lot of Soda almost 2-3 L of fluid nephrology consulted -appreciate input s/p HD , followed by peritoneal dialysis at night vol status much improved, no complain of SOB or orthopnea d/w pt regarding option of doing HD only to prevent vol overload /repeat admission to hospital with CHF has functioning AV fistula pt is not able to tolerate HD due to leg cramps also she is looking for a job -having PD at night better will not be able to get a job if needs to have HD X3 week pt mentions she will be getting her PD machine delivered this Saturday will follow with fluid restrictions evaluated by Nephrology -stable to be discharged home today ESRD ON PERITONEAL DIALYSIS : hx of renal failure due to FSGS , failed renal transplant follows with nephrology Dr Mota pt been poorly complaint with dialysis -requiring recurrent admission at [facility] Appreciate Nephrology input S/P hemodialysis with removal of 6 L of fluid pt will be continued on PD as out pt Dialyzer machine will be delivered to pt tomorrow ACCELERATED HTN : due to ESRD /vol overload antihypertensives adjusted by nephrology Norvasc dose increased to 10 mg daily Coreg increased to 25 mg BID on Max dose of lisinopril 20 mg BID Increased Hydralazine dose to 50 mg BID PROLONG QTC ; Qtc > 500 hold medication than can worsen prolongation SSRI /Trazodone /Zofran /TCA -Remeron -d/johnny pt is asked to follow up with her Psychiatrist to different medication for sleep that will not affect Qtc Lorazepam 0.5 mg HS prn for sleep given RECURRENT CHEST PAIN : symptom has resolved due to above -decompensated CHF /vol overload resolved after dialysis pt's symptom very atypical for angina mild elevation of troponin possible due to demand ischemia recent ECHO on 04/18/17 : EF 60-65% , grade 2 diastolic dysfunction no wall motion abnormality recent Dobutamine stress test in 2016 was negative for stress induced ischemia FULL CODE DVT PROPHYLAXIS : Sub q heparin DISPOSITION : discharged home today Medicine follow up with Dr Aldridge Nephrology follow up with Dr Mota Total time spent on discharge = 35MINS This includes examination of the patient, discharge planning, medication reconciliation, and communication with other providers. Discharge Instructions Discharge Instructions Date of Service May 21, 2017. Admission Reason for Admission: Diastolic Chf, Peritoneal Dialysis Catheter Discharge Discharge Diagnosis / Problem: ACUTE DECOMPENSATED CHF /VOLUME OVER LOAD /ESRD ON HD Discharge Goals Goal(s): Decrease discomfort, Improve disease control, Diagnostic testing, Therapeutic intervention Activity Recommendations Activity Limitations: resume your previous activity . Instructions / Follow-Up Instructions / Follow-Up HOSPITAL FOLLOW UP : 05/22/2017 3:30 PM Adolph Aldridge MD [facility] Call your Primary Care doctor if any of the following symptoms or problems start or get worse: * Shortness of breath or difficulty breathing * Wake up at night short of breath * Chest pain * Cough * Swelling of your hands, feet, or legs * More fatigued or tired with your normal activity * Palpitations - sudden fast heart beats WEIGHT * Weigh yourself every morning after using the bathroom. * Use the same scale. * Wear the same amount of clothing. * Write your weight down on a chart. * Call your Primary Care doctor if you gain more than 2-3 pounds in 1-2 days. MEDICATIONS * Use this discharge instruction sheet for medication instructions. * Take your medications at the time your doctor ordered. * Do not skip a dose of your medicines. * If you miss a dose of medicine, take it as soon as possible, but DO NOT DOUBLE A DOSE. * Read your medicine information when you get home. * Know all of the side effects of your medicine. If in doubt, ask your pharmacist * Call your Primary Care doctor's office if you have any side effects. * Be sure all of your doctors know what medicine and herbs you take (including cold, flu, and herbal medicine). Take the following with you to your follow-up doctor appointments: * Weight Chart * Medication List * List of questions Do not drink excessive alcohol, beer or wine. Current Hospital Diet Patient's current hospital diet: Renal Diet Discharge Diet Recommended Diet: Renal Diet Fluid Restriction: 1500 ml (6 cups) Pending Studies Studies pending at discharge: no Laboratory Results Lipid Panel Test 05/20/17 06:43 Range/Units Triglycerides Level 70 0-150 mg/dl Cholesterol Level 167 0-200 mg/dl HDL Cholesterol 40 mg/dl Cholesterol/HDL Ratio 4.2 LDL Cholesterol, Calculated 113 mg/dl Medical Emergencies . Who to Call and When: Call 911 or go to the Emergency Room if: * If at any time you feel your situation is an emergency * You have tightness or pain in your chest that does not go away with rest or Nitroglycerin * You are very short of breath even with rest . Non-Emergent Contact Non-Emergency issues call your: Primary Care Provider . . "Provider Documentation" section prepared by Rosario Chaidez. . VTE Core Measure Inpt VTE Proph given/why not?: Unfractionated heparin SQ Additional Copies To Adolph Aldridge M.D. Yohana Mota I., DO
== END 2017-05-21 16:20 | disposition home or self-care (01) | DRG 291 ==
LOC: EDBD 08:45 → C.EDA 08:46 → EDBEDREQ 11:45 → ENRESERV 11:51 → C.2E 12:39
PROVIDERS: ADMIT Hospitalist; ATTEND Internal Medicine
DX: I50.33 Acute on chronic diastolic (congestive) heart failure (principal); N18.6 End stage renal disease; I12.0 Hypertensive chronic kidney disease with stage 5 chronic kidney disease or end stage renal disease; Z94.0 Kidney transplant status; E87.70 Fluid overload, unspecified; F17.200 Nicotine dependence, unspecified, uncomplicated; E11.9 Type 2 diabetes mellitus without complications; Z86.711 Personal history of pulmonary embolism; Z99.2 Dependence on renal dialysis; Z98.51 Tubal ligation status; D64.9 Anemia, unspecified; Z83.3 Family history of diabetes mellitus; Z82.49 Family history of ischemic heart disease and other diseases of the circulatory system

== ENCOUNTER 2017-06-14 10:50 | Day surgery (SDC) | payer OTHER ==
[2017-06-11 07:51] VITALS: BMI 29.0
[~2017-06-14] VITALS: Ht 167.6 cm; Wt 82.0 kg
[~2017-06-14 10:50] MED LIST changes: +APR50 PO; -BENZ100C7 PO; -FLUT0.15 NAE; +LORA-741 PO; -LXP/20 PO; -MIRT30TA3 PO; +PROPOFOL IV EMULSION 10 MG/ML 100 ML VIAL IV ONE; +SODIUM CHLORIDE 0.9% 1000ML 1,000 ML IV SCH; +SODIUM CHLORIDE 0.9% 500ML 500 ML IV ONE; -TRAZ50TA35 PO; +VORT1TAB PO
[2017-06-14 11:27] VITALS: BP 116/71; PULSE 82; TEMP 36.8; O2SAT 99; Ht 167.6 cm; Wt 82.0 kg
[2017-06-14] MEDS ORDERED: DOXY100C76 PO (11:27)
[2017-06-14] MEDS ORDERED: ATROPINE SULFATE 0.1 MG/ML 5ML SYR IV PRN (12:00)
[2017-06-14] MEDS ORDERED: ONDANSETRON INJ 2 MG/ML 2 ML VIAL IV PRN (12:00)
[2017-06-14 12:11] LABS: BUN/CREATININE RATIO 3.5 (10-20); CALCIUM 8.3 mg/dl (8.5-10.1); CREATININE 15.5 mg/dl (0.60-1.20); POTASSIUM 4.6 mmol/L (3.5-5.1)
--- NOTE | 2017-06-14 12:19 | Progress Note ---
Progress Note Date of Service Jun 14, 2017. Progress Note [facility] [address] [place] [address] Endoscopy History & Physical Patient Name: Alexandra Arguello Unit Number: [id number] Date of : 1985 Patient Status: Registered Surgical Day Care Attending Doctor: Walker Pollard MD History & Physical - GI History & Physical Date of Service: Jun 14, 2017. Chief Complaint: Referring Physician: History of Present Illness 31 year old female patient of Dr. Aldrideg with a hx of DM, HTN, migraines, anemia of CKD, ~S/P kidney transplant, on home peritoneal dialysis, also S/P cholecystectomy is here for abdominal pain. The first episode of pancreatitis occurred on March 06 2017, with pain building quickly after a dialysis treatemt. She was admitted to [facility] with lipase 935 LFTs were normal, WBC was normal. Non contrast CT of the abd/pelvis that day was equivocal for pancreatitis. Since then, she had two more episodes of the this same pain. During these~episodes, lipase was in the 200's and LFTs were normal. Presenting for endoscopic ultrasound. Minimal to no chronic pain now. Doing well otherwise doing PD nightly. Past Medical History Diabetes, Fractures, Anxiety, Reflux, Chronic Steroid Use, Kidney Disease, Depression Past Surgical History Hx Cardiac Surgery: Yes (CARDIAC CATH, NO STENTS) Hx Abdominal Surgery: Yes (KIDNEY TRANSPLANT 2013, 2004 & 2011, TUBALIGATION 2011) Hx Post-Op Nausea and Vomiting: No Hx Cancer Surgery: No Hx Thoracic Surgery: No Hx Orthopedic: Yes (LT KNEE 2003&2008) Hx Urinary Tract Surgery: Yes (KIDNEY TRANSPLANT ) Social History Smoking Status: Current Every Day Smoker Hx Substance Use: No Hx Alcohol Use: No Allergies Coded Allergies: Cefaclor (Verified Allergy, Intermediate, Rash, 06/14/17) Reported by PT. Amoxicillin (Verified Adverse Reaction, Mild, VOMITING, 06/14/17) Clavulanic Acid (Verified Adverse Reaction, Mild, VOMITING, 06/14/17) Current Medications Reported Home Medications Medications Dose Route/Sig Max Daily Dose Days Date Category Dose Instructions Trintellix (Vortioxetine HBr) 5 Mg Tab 5 Mg PO QAM 06/11/17 Reported Ativan (Lorazepam) 0.5 Mg Tab 0.5 Mg PO HS 06/11/17 Reported Hydralazine HCl 50 Mg Tab 1 Tab PO BID 30 05/21/17 Rx Carvedilol 25 Mg Tab 25 Mg PO BID 30 05/17/17 Rx Amlodipine Besylate 5 Mg Tab 10 Mg PO QAM 05/15/17 Reported Zestril (Lisinopril) 20 Mg Tab 20 Mg PO BID 05/06/17 Reported Calcitriol 0.5 Mcg Cap 2 Cap PO QAM 04/13/17 Reported Pepcid (Famotidine) 40 Mg Tab 40 Mg PO QAM 01/22/17 Reported Tums (Calcium Carbonate) 500 Mg Chew 1,500 Mg PO HS 01/19/17 Reported Phoslo 667 Mg (Calcium Acetate) 667 Mg Cap 2 Cap PO WITH SNACKS 12/02/16 Reported TAKE 2 CAPSULES WITH SNACKS Phoslo 667 Mg (Calcium Acetate) 667 Mg Cap 3 Cap PO WM 11/18/16 Reported Ventolin Hfa (Albuterol) 200 Puffs/65189 Mcg Aers 2 Puffs INH Q4H PRN 07/05/16 Reported Vital Signs Weight (Kilograms): 82 Height (Feet): 5 Height (Inches): 6 Physical Exam General Appearance: WD/WN, no apparent distress Respiratory/Chest: Respiratory effort: no dyspnea Auscultation: breath sounds normal, CTA except as noted, no wheezing Cardiovascular: Apical Impulse: not displaced Heart Auscultation: RRR, normal S1, normal S2 Assessment and Plan 31-year-old presented for endoscopic ultrasound for recurrent idiopathic pancreatitis.
[2017-06-14] MEDS ORDERED: SODIUM CHLORIDE 0.9% 500ML 500 ML IV ONE ×2 (12:20)
[2017-06-14] MEDS ORDERED: PROPOFOL IV EMULSION 10 MG/ML 20 ML VIAL IV ONE (12:46)
[2017-06-14] MEDS ORDERED: LIDOCAINE HCL 2% 2 ML VIAL (20MG/ML) ONE (12:46)
[2017-06-14] MEDS ORDERED: MIDAZOLAM HCL 1 MG/ML 2ML VIAL ONE (12:47)
[2017-06-14] MEDS ORDERED: KETAMINE HCL INJ 50 MG/ML 10 ML VIAL ONE (12:47)
--- NOTE | 2017-06-14 14:03 | Discharge Instructions ---
Endoscopy Patient Instructions Date / Procedure(s) Performed Jun 14, 2017. Other (EUS) Allergy Information Coded Allergies: Cefaclor (Verified Allergy, Intermediate, Rash, 06/14/17) Reported by PT. Amoxicillin (Verified Adverse Reaction, Mild, VOMITING, 06/14/17) Clavulanic Acid (Verified Adverse Reaction, Mild, VOMITING, 06/14/17) Discharge Date / Findings Jun 14, 2017. Normal EGD/EUS Biopsies taken Normal Pancreas Provider Instructions Activity Restrictions - No exercising or heavy lifting for 24 hours. - Do not drink alcohol the day of the procedure. - Do not drive a car or operate machinery until the day after the procedure. - Do not make any important decisions or sign important papers in 24 hours after the procedure. Following Day: - Return to full activity which may include returning to work/school. Diet Start your diet with liquids and light foods (jello, soup, juice, toast). Then eat your usual diet if not nauseated. Treatment For Common After Affects For mild abdominal pain, bloating, or excessive gas: - Rest - Eat lightly - Lie on right side Follow-Up Information Follow-up with as scheduled Anesthesia Information What You Should Know You have had a procedure that required some medicine to reduce anxiety and discomfort. This treatment is called moderate sedation. After receiving the treatment, you may be sleepy, but you will be able to breathe on your own. The effects of the treatment may last for several hours. Follow these instructions along with Activity/Diet recommendations noted above: * Do NOT do anything where dizziness or clumsiness would be dangerous. * Rest quietly at home today, then you can be up and about tomorrow. * Have a responsible person stay with you the rest of today. * You may have had an I.V. today. If so, you may take the dressing off later today. Recommendations Call your doctor if: * Trouble breathing * Continuous vomiting for more than 24 hours * Temperature above 101 degrees * Severe abdominal pain or bloating * Pain not relieved by pain medicine ordered * There is increased drainage or redness from any incision * A large amount of rectal bleeding greater than 2-3 tablespoons. (If you had a polyp/s removed or have hemorrhoids, a small amount of blood - from the rectum is to be expected.) * You have any unanswered questions or concerns. IN THE EVENT OF A SERIOUS EMERGENCY, GO TO THE NEAREST EMERGENCY ROOM Your discharge instructions were prepared by provider Walker Pollard. Patient Instructions Signature Page Alexandra Arguello Patient (or Guardian) Signature/Date: I have read and understand the instructions given to me by my caregivers. Caregiver/RN/Doctor Signature/Date: The above-named patient and/or guardian has received patient instructions on this date. + Original Patient Signature Page (only) stays with chart. Please make copy for patient.
--- NOTE | 2017-06-14 14:09 | GI REPORT ---
Procedure Date: 06/14/2017 1:34 PM Procedure: Upper GI endoscopy Indications: Epigastric abdominal pain, Pancreatitis Medicines: General Anesthesia Complications: No immediate complications. Estimated blood loss: None. Estimated Blood Loss: Estimated blood loss: none. Procedure: Pre-Anesthesia Assessment: - Pre-Anesthesia Assessment: - Prior to the procedure, a History and Physical was performed, and patient medications, allergies and sensitivities were reviewed. The patient's tolerance of previous anesthesia was reviewed. Please see Year Up for complete details. - The risks and benefits of the procedure and the sedation options and risks were discussed with the patient. All questions were answered and informed consent was obtained. - Patient identification and proposed procedure were verified prior to the procedure by the physician and the nurse. The procedure was verified in the pre-procedure area in the procedure room. After obtaining informed consent, the endoscope was passed carefully and meticuously under direct vision and only advanced when the lumen was clearly identified, C02 insuflation was utilized throughout the entirity of the procedure. Throughout the procedure, the patient's blood pressure, pulse, and oxygen saturations were monitored continuously. After obtaining informed consent, the endoscope was passed under direct vision. Throughout the procedure, the patient's blood pressure, pulse, and oxygen saturations were monitored continuously. The scope was introduced through the mouth, and advanced to the second part of duodenum. The upper GI endoscopy was accomplished without difficulty. The patient tolerated the procedure well. Findings: The examined esophagus was normal. The entire examined stomach was normal. Biopsies were taken with a cold forceps for histology. The examined duodenum was normal. Biopsies for histology were taken with a cold forceps for evaluation of celiac disease. Impression: - Normal esophagus. - Normal stomach. Biopsied. - Normal examined duodenum. Biopsied. Recommendation: - Await pathology results. - Discharge patient to home (with escort). - Perform an upper endoscopic ultrasound (UEUS) today. Walker Pollard MD 06/14/2017 2:08:41 PM This report has been signed electronically. Note Initiated On: 06/14/2017 1:34 PM I attest to the content of the Intraoperative Record and orders documented therein, exceptions below
--- NOTE | 2017-06-14 14:12 | GI REPORT ---
Procedure Date: 06/14/2017 1:35 PM Procedure: Upper EUS Indications: Acute recurrent pancreatitis Medicines: General Anesthesia Complications: No immediate complications. Estimated blood loss: None. Estimated Blood Loss: Estimated blood loss: none. Procedure: Pre-Anesthesia Assessment: - Pre-Anesthesia Assessment: - Prior to the procedure, a History and Physical was performed, and patient medications, allergies and sensitivities were reviewed. The patient's tolerance of previous anesthesia was reviewed. Please see Retrotope for complete details. - The risks and benefits of the procedure and the sedation options and risks were discussed with the patient. All questions were answered and informed consent was obtained. - Patient identification and proposed procedure were verified prior to the procedure by the physician and the nurse. The procedure was verified in the pre-procedure area in the procedure room. After obtaining informed consent, the endoscope was passed carefully and meticuously under direct vision and only advanced when the lumen was clearly identified, C02 insuflation was utilized throughout the entirity of the procedure. Throughout the procedure, the patient's blood pressure, pulse, and oxygen saturations were monitored continuously. After obtaining informed consent, the endoscope was passed under direct vision. Throughout the procedure, the patient's blood pressure, pulse, and oxygen saturations were monitored continuously. The Endosonoscope was introduced through the mouth, and advanced to the second part of duodenum. The upper EUS was accomplished without difficulty. The patient tolerated the procedure well. Findings: Endosonographic Finding : There was no sign of significant endosonographic abnormality in the entire pancreas. The pancreatic duct measured up to 2 mm in diameter. The pancreas was well visualized, no pathologic lymphadenopathy, no masses, no cysts, no calcifications, the pancreatic duct was well visualized from ampulla to tail, the pancreatic duct was thin in caliber, the pancreatic duct was regular in contour. There was no sign of significant endosonographic abnormality in the common bile duct. The maximum diameter of the duct was 4 mm. No pathologic lymphadenopathy, no masses, no cysts, no calcifications, no stones, no biliary sludge, ducts of normal caliber and ducts with regular contour were identified. The gallbladder was surgically absent consistent with history of cholecystectomy. There was no sign of significant endosonographic abnormality in the left lobe of the liver. There was no sign of significant endosonographic abnormality involving the celiac trunk. Impression: - There was no sign of significant pathology in the entire pancreas. - There was no sign of significant pathology in the common bile duct. - There was no evidence of significant pathology in the left lobe of the liver. - The celiac trunk was endosonographically normal. - No specimens collected. Recommendation: - Discharge patient to home (with escort). - Return to referring physician as previously scheduled. Walker Pollard MD 06/14/2017 2:11:32 PM This report has been signed electronically. Note Initiated On: 06/14/2017 1:35 PM I attest to the content of the Intraoperative Record and orders documented therein, exceptions below
[2017-06-14] MEDS: FENTANYL CITRATE INJ 50 MCG/1 ML 2 ML VIAL IV PRN ×2 (14:22→14:40)
[2017-06-14 15:02] VITALS: BP 138/79; PULSE 71; TEMP 36.7; O2SAT 98
--- NOTE | 2017-06-14 15:29 | Anesthesiology Progress Note ---
Anesthesia Post Op Note Date & Time Jun 14, 2017 at 15:29 Vital Signs Pain Intensity: 0 Vital Signs Past 12 Hours Date Time Temp Pulse Resp B/P (MAP) Pulse Ox O2 Delivery O2 Flow Rate FiO2 06/14/17 15:02 36.7 71 18 138/79 98 Room Air 06/14/17 14:56 125/75 06/14/17 14:56 36.5 06/14/17 14:53 73 16 06/14/17 14:53 91 16 98 06/14/17 14:51 129/77 06/14/17 14:48 70 14 96 06/14/17 14:48 69 14 06/14/17 14:47 71 13 06/14/17 14:47 74 13 96 06/14/17 14:46 135/82 06/14/17 14:42 71 16 06/14/17 14:42 72 16 99 06/14/17 14:41 126/83 06/14/17 14:37 68 15 98 06/14/17 14:37 68 15 06/14/17 14:36 149/88 06/14/17 14:34 72 15 06/14/17 14:34 72 15 98 06/14/17 14:31 124/84 06/14/17 14:29 72 16 06/14/17 14:29 72 16 98 06/14/17 14:28 67 16 06/14/17 14:28 67 16 100 06/14/17 14:26 135/72 06/14/17 14:23 72 14 100 06/14/17 14:23 71 14 06/14/17 14:21 129/69 06/14/17 14:18 69 19 06/14/17 14:18 67 19 100 06/14/17 14:16 126/68 06/14/17 14:13 67 18 06/14/17 14:13 66 18 100 06/14/17 14:11 115/63 06/14/17 14:09 112/66 06/14/17 14:08 75 16 06/14/17 14:08 36.3 75 17 112/66 100 Oxymask 10 06/14/17 14:08 74 16 100 06/14/17 11:27 36.8 82 18 116/71 (86) 99 Room Air Notes Mental Status: alert / awake / arousable, participated in evaluation Pt Amnestic to Procedure: Yes Nausea / Vomiting: adequately controlled Pain: adequately controlled Airway Patency, RR, SpO2: stable & adequate BP & HR: stable & adequate Hydration State: stable & adequate Anesthetic Complications: no major complications apparent
[2017-06-14 15:32] VITALS: BP 132/79; PULSE 70; O2SAT 97
[2017-06-14 16:02] VITALS: BP 132/79; PULSE 70; O2SAT 97
== END 2017-06-14 16:02 | disposition home or self-care (01) ==
LOC: C.ACU 10:50
PROVIDERS: ATTEND Internal Medicine
DX: K29.50 Unspecified chronic gastritis without bleeding (principal); K85.90 Acute pancreatitis without necrosis or infection, unspecified; I10 Essential (primary) hypertension; Z88.0 Allergy status to penicillin; E11.9 Type 2 diabetes mellitus without complications; D63.1 Anemia in chronic kidney disease; Z94.0 Kidney transplant status; Z99.2 Dependence on renal dialysis; Z79.52 Long term (current) use of systemic steroids; F32.9 Major depressive disorder, single episode, unspecified; Z98.51 Tubal ligation status; Z98.890 Other specified postprocedural states; F17.200 Nicotine dependence, unspecified, uncomplicated; Z88.1 Allergy status to other antibiotic agents

== ENCOUNTER 2017-07-29 14:04 | Emergency (ER) | payer OTHER ==
[~2017-07-29] VITALS: Ht 167.6 cm; Wt 84.5 kg
[~2017-07-29 14:04] MED LIST changes: +CALC0.5C PO; -CALC0.5C17 PO; -CALC500C3 PO; +DOXY100C76 PO; -PROPOFOL IV EMULSION 10 MG/ML 100 ML VIAL IV ONE; -SODIUM CHLORIDE 0.9% 1000ML 1,000 ML IV SCH; -SODIUM CHLORIDE 0.9% 500ML 500 ML IV ONE
[2017-07-29 14:21] VITALS: TEMP 36.9
[2017-07-29] MEDS ORDERED: CALC500C3 PO (15:54)
[2017-07-29] MEDS ORDERED: FRS/80 PO (15:55)
[2017-07-29 16:02] VITALS: O2SAT 100
--- NOTE | 2017-07-29 16:14 | DIAGNOSTIC IMAGING REPORT ---
CHEST ONE VIEW PORTABLE CLINICAL HISTORY: Weakness COMPARISON STUDY: 05/19/2017 FINDINGS: The heart is within normal limits in size given the AP technique. The study is mildly rotated which likely accounts for the prominence of the right mid mediastinal soft tissues. There is no focal pulmonary consolidation. There is no failure. There are no pleural effusions.[ IMPRESSION: No active disease in the chest. Electronically signed by: Win Foster M.D. 07/29/2017 4:13 PM Dictated Date/Time: 07/29/2017 4:12 PM
[2017-07-29] MEDS ORDERED: METOCLOPRAMIDE HCL INJ 5 MG/ML 2 ML VIAL IV STA (16:30)
[2017-07-29] MEDS ORDERED: ACETAMINOPHEN 500 MG TAB PO STA (16:30)
[2017-07-29 16:36] VITALS: Ht 167.6 cm; Wt 84.5 kg
[2017-07-29 16:38] LABS: BASO % 0.2 %; BASO ABS # 0.01 K/uL (0-0.2); COMPLETE YES; EOS % 1.9 %; HEMATOCRIT 32.7 % (37-47); IG% 0.2 %; LYMPH % 17.3 %; LYMPH ABS # 1.11 K/uL (1.2-3.4); MEAN CELL VOLUME 100.9 fL (80-100); MEAN CORPUSCULAR HEMOGLOBIN 32.4 pg (25-34); MEAN CORPUSCULAR HGB CONC 32.1 g/dl (32-36); MEAN PLATELET VOLUME 9.6 fL (7.4-10.4); MONO % 6.2 %; NEUT % 74.2 %; PLATELET COUNT 149 K/uL (130-400); RED BLOOD COUNT 3.24 M/uL (4.2-5.4); WHITE BLOOD COUNT 6.42 K/uL (4.8-10.8)
[2017-07-29 17:15] LABS: BLOOD UREA NITROGEN 70 mg/dl (7-18); CALCIUM 7.2 mg/dl (8.5-10.1); CARBON DIOXIDE 23 mmol/L (21-32); CHLORIDE 94 mmol/L (98-107); GLUCOSE 87 mg/dl (70-99); PHOSPHORUS 12.5 mg/dl (2.5-4.9); SODIUM 132 mmol/L (136-145)
[2017-07-29 17:25] LABS: URINE APPEARANCE TURBID (CLEAR); URINE BILIRUBIN NEG (NEG); URINE COLOR YELLOW; URINE EPITHELIAL CELL AUTO >30 /lpf (0-5); URINE NITRITE NEG (NEG); URINE PH 6.5 (4.5-7.5); URINE SPECIFIC GRAVITY 1.015 (1.000-1.030); UROBILINOGEN NEG (NEG)
[2017-07-29 17:26] LABS: MANUAL MICROSCOPIC REQUIRED? NO; REVIEW REQ? YES
[2017-07-29 18:00] VITALS: BP 97/72; PULSE 88; O2SAT 98
[2017-07-29] MEDS ORDERED: CEPH-571 PO (18:04)
--- NOTE | 2017-07-29 18:04 | EMERGENCY ROOM VISIT NOTE ---
History Report prepared by Katia: Keon Gong Under the Supervision of: Dr. Karan Santiago M.D. First contact with patient: 15:36 Chief Complaint: DIZZY Stated Complaint: DIZZY WHEN STANDING AND SITTING Nursing Triage Summary: Pt states, "I have kidney failure. 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 I get dizzy when I stand and my hands and feet have been cramping really bad. It started a couple days ago. I get home dialysis." History of Present Illness The patient is a 31 year old white female with a past medical history of diabetes, HTN, PE, bipolar disorder, renal failure with right sided kidney transplant who presents to the ED with a cc of intermittent dizziness beginning a few days ago. Symptoms worse with standing up. Patient is on home dialysis daily. Had PD last night as normal. Not on any immunosuppressants. No recent changes to medications. Positive non-productive cough, hand cramping. Cough began three weeks ago, and patient has been seen for this by her PCP. Patient had a headache yesterday which resolved on its own. Negative heart racing, visual changes, nausea, or vomiting. Patient denies recent straining with defecation. Source of History: patient Onset: A few days ago Quality: other (dizziness) Timing: intermittent Modifying Factors (Worsening): other (standing up) Associated Symptoms: + headache (yesterday, resolved), + cough (non- productive, beginning three weeks ago), No nausea, No vomiting Note: Additional symptoms: hand cramping. The patient denies visual changes or heart racing. Review of Systems See HPI for pertinent positives and negatives. A total of ten systems were reviewed and were otherwise negative. Past Medical & Surgical Medical Problems: (1) Anemia (2) CKD (chronic kidney disease) stage V requiring chronic dialysis (3) Diastolic CHF (4) DM2 (diabetes mellitus, type 2) (5) FSGS (focal segmental glomerulosclerosis) (6) HTN (hypertension) (7) Migraine (8) Peritoneal dialysis catheter in place (9) Pulmonary embolism (10) Renal failure Surgical Problems: (1) H/O knee surgery (2) H/O tubal ligation (3) H/O: (4) Kidney transplant status, living related donor Family History Blood clots FATHER BROTHER Crohn's disease FATHER Diabetes mellitus MOTHER Hypertension SISTER Social History Smoking Status: Never Smoker Alcohol Use: none Drug Use: none Marital Status: Housing Status: lives with friends Occupation Status: unemployed Current/Historical Medications Scheduled Amlodipine Besylate (Amlodipine Besylate), 10 MG PO QAM Calcitriol (Calcitriol), 2 CAP PO QAM Calcium Acetate (Phoslo 667 Mg), 3 CAP PO WM Calcium Acetate (Phoslo 667 Mg), 2 CAP PO WITH SNACKS Calcium Carbonate (Tums), HS Carvedilol (Carvedilol), 25 MG PO BID Cephalexin (Keflex), 1 CAP PO BID Famotidine (Pepcid), 40 MG PO QAM Furosemide (Lasix), 80 MG PO BID Hydralazine HCl (Hydralazine HCl), 1 TAB PO BID Lisinopril (Zestril), 20 MG PO BID Lorazepam (Ativan), 0.5 MG PO HS Vortioxetine HBr (Trintellix), 5 MG PO QAM Scheduled PRN Albuterol Hfa (Ventolin Hfa), 2 PUFFS INH Q4H PRN for SOB/Wheezing Allergies Coded Allergies: Cefaclor (Verified Allergy, Intermediate, Rash, 07/29/17) Reported by PT. Amoxicillin (Verified Adverse Reaction, Mild, VOMITING, 07/29/17) Clavulanic Acid (Verified Adverse Reaction, Mild, VOMITING, 07/29/17) Physical Exam Vital Signs Date Time Temp Pulse Resp B/P (MAP) Pulse Ox O2 Delivery O2 Flow Rate FiO2 07/29/17 18:00 88 16 97/72 98 07/29/17 16:02 77 18 107/57 100 Room Air 92 102/61 97 95/67 07/29/17 16:02 100 Room Air 07/29/17 16:02 97 18 95/67 100 Room Air 07/29/17 14:21 36.9 95 18 106/74 97 Room Air Physical Exam GENERAL: Awake, alert, well-appearing, NAD HENT: Normocephalic, atraumatic. EYES: Normal conjunctiva. Sclera non-icteric. NECK: Supple. No nuchal rigidity. FROM. RESPIRATORY: CTAB, no rhonchi, wheezing, crackles CARDIAC: RRR, no MRG ABDOMEN: Soft, NTND, BS+. PD in left abdomen. Site is CDI. MSK: No chest wall TTP, no LE edema. Left UE AVF with palpable thrill. NEURO: CN 2-12 intact, 5/5 upper and lower extremity strength, no dysmetria, no drift, good finger to nose, no sensory deficits. SKIN: No rash or jaundice noted. Medical Decision & Procedures ER Provider Diagnostic Interpretation: Radiology results as stated below per my review and radiologist interpretation: CHEST ONE VIEW PORTABLE FINDINGS: The heart is within normal limits in size given the AP technique. The study is mildly rotated which likely accounts for the prominence of the right mid mediastinal soft tissues. There is no focal pulmonary consolidation. There is no failure. There are no pleural effusions.[ IMPRESSION: No active disease in the chest. Electronically signed by: Win Foster M.D. 07/29/2017 4:13 PM Laboratory Results 07/29/17 16:26 Red Blood Count 3.24, Mean Corpuscular Volume 100.9, Mean Corpuscular Hemoglobin 32.4, Mean Corpuscular Hemoglobin Concent 32.1, Mean Platelet Volume 9.6, Neutrophils (%) (Auto) 74.2, Lymphocytes (%) (Auto) 17.3, Monocytes (%) ( Auto) 6.2, Eosinophils (%) (Auto) 1.9, Basophils (%) (Auto) 0.2, Neutrophils # ( Auto) 4.77, Lymphocytes # (Auto) 1.11, Monocytes # (Auto) 0.40, Eosinophils # ( Auto) 0.12, Basophils # (Auto) 0.01 07/29/17 16:26 Test 07/29/17 16:26 07/29/17 17:07 White Blood Count 6.42 K/uL (4.8-10.8) Red Blood Count 3.24 M/uL (4.2-5.4) Hemoglobin 10.5 g/dL (12.0-16.0) Hematocrit 32.7 % (37-47) Mean Corpuscular Volume 100.9 fL (80-100) Mean Corpuscular Hemoglobin 32.4 pg (25-34) Mean Corpuscular Hemoglobin Concent 32.1 g/dl (32-36) Platelet Count 149 K/uL (130-400) Mean Platelet Volume 9.6 fL (7.4-10.4) Neutrophils (%) (Auto) 74.2 % Lymphocytes (%) (Auto) 17.3 % Monocytes (%) (Auto) 6.2 % Eosinophils (%) (Auto) 1.9 % Basophils (%) (Auto) 0.2 % Neutrophils # (Auto) 4.77 K/uL (1.4-6.5) Lymphocytes # (Auto) 1.11 K/uL (1.2-3.4) Monocytes # (Auto) 0.40 K/uL (0.11-0.59) Eosinophils # (Auto) 0.12 K/uL (0-0.5) Basophils # (Auto) 0.01 K/uL (0-0.2) RDW Standard Deviation 62.0 fL (36.4-46.3) RDW Coefficient of Variation 17.2 % (11.5-14.5) Immature Granulocyte % (Auto) 0.2 % Immature Granulocyte # (Auto) 0.01 K/uL (0.00-0.02) Anion Gap 15.0 mmol/L (3-11) Est Creatinine Clear Calc Drug Dose 5.1 ml/min Estimated GFR () 2.7 Estimated GFR (Non- 2.4 BUN/Creatinine Ratio 4.0 (10-20) Calcium Level 7.2 mg/dl (8.5-10.1) Phosphorus Level 12.5 mg/dl (2.5-4.9) Magnesium Level mg/dl (1.8-2.4) Pro-B-Type Natriuretic Peptide 1129 pg/ml (0-450) Thyroid Stimulating Hormone (TSH) 1.700 uIu/ml (0.300-4.500) Urine Color YELLOW Urine Appearance TURBID (CLEAR) Urine pH 6.5 (4.5-7.5) Urine Specific Foreman 1.015 (1.000-1.030) Urine Protein 3+ (NEG) Urine Glucose (UA) TRACE (NEG) Urine Ketones NEG (NEG) Urine Occult Blood TRACE (NEG) Urine Nitrite NEG (NEG) Urine Bilirubin NEG (NEG) Urine Urobilinogen NEG (NEG) Urine Leukocyte Esterase TRACE (NEG) Urine WBC (Auto) >30 /hpf (0-5) Urine RBC (Auto) 0-4 /hpf (0-4) Urine Hyaline Casts (Auto) 1-5 /lpf (0-5) Urine Epithelial Cells (Auto) >30 /lpf (0-5) Urine Bacteria (Auto) 4+ (NEG) Urine Pathogenic Casts /lpf (0) Urine Yeast (Auto) (NONE PRSENT) Laboratory results reviewed by me Medications Administered Medications (Trade) Dose Ordered Sig/Sachin Route Start Time Stop Time Status Last Admin Dose Admin Metoclopramide HCl (Reglan Inj) 10 mg NOW STAT IV 07/29/17 16:30 07/29/17 16:32 DC 07/29/17 16:30 10 MG Acetaminophen (Tylenol Tab) 1,000 mg NOW STAT PO 07/29/17 16:30 07/29/17 16:32 DC 07/29/17 16:30 1,000 MG ECG Indication: other (dizziness) Rate (beats per minute): 75 Rhythm: normal sinus Findings: other (Prolonged QT. Motion artifact. Normal axis. No other STS changes or TWI. ) ED Course 1541: The patient was evaluated in room C5. A complete history and physical exam was performed. 1804: I reevaluated the patient. Discussed results and leaving AMA, and the patient verbalized understanding of the risks. The patient left AMA. Medical Decision The patient is a 31 year old white female with a past medical history of diabetes, HTN, PE, bipolar disorder, renal failure with right sided kidney transplant s/p failure no longer on immunosuppressive trx who presents to the ED with a cc of intermittent dizziness beginning a few days ago. Differential diagnosis: Etiologies such as benign positional vertigo, dehydration, hypovolemia, anemia, tumor, infection, hypoglycemia, electrolyte abnormalities, cardiac sources, intracerebral event, toxicologic, neurologic, as well as others were entertained. Patient was seen and evaluated the bedside. Patient was complaining some mild lightheadedness today. Patient states that it was when she changed positions and additional when she was using the bathroom. Patient denies any abnormal bleeding. Patient denies any LOC. On exam the patient has no focal neurologic deficit. Patient is very well-appearing. Patient is nontoxic in appearance. Patient did have blood work completed along with an EKG and urinalysis. Patient 's urinalysis showed a likely infection. Patient's blood work was not fully completed as some of her lab values had hemolyzed. Patient does have a very high creatinine. Patient does perform peritoneal dialysis nightly. Patient did not have any fevers, nausea, vomiting, or abdominal pain to make me concern for SBP. Believe that the most likely cause his orthostatics given the patient did have positive orthostatic vital signs. Were unable to obtain a potassium. I did discuss this with the patient. She stated that she did not want to wait any longer. I did discuss the risks of leaving without having this information. She states that she understands the risks. Patient did sign out AMA. Patient did have a prescription that was sent to the pharmacy. She was told that if she doesn't improve in her symptoms that she should return for repeat evaluation as the medication that she was given which was renally dosed will not cover for all likely bacteria per the pharmacist. She does have a urine culture pending. Patient signed out and left AMA. Medication Reconcilliation Current Medication List: was personally reviewed by me Blood Pressure Screening Patient's blood pressure: Normal blood pressure Blood pressure disposition: Did not require urgent referral Impression Primary Impression: Dizziness Additional Impressions: Peritoneal dialysis catheter in place UTI (urinary tract infection) Scribe Attestation The scribe's documentation has been prepared under my direction and personally reviewed by me in its entirety. I confirm that the note above accurately reflects all work, treatment, procedures, and medical decision making performed by me. Departure Information Dispostion Against Medical Advice Prescriptions Cephalexin (KEFLEX) 500 Mg Cap 1 CAP PO BID for 5 Days, #10 CAP Prov: Karan Santiago M.D. 07/29/17 Referrals Yohana Jo DO (PCP) Patient Instructions Dizziness Fainting Poss Causes, ED UTI Cystitis Female, My [facility] Additional Instructions Please return to the emergency department if you have worsening or recurrent symptoms not amenable to at-home treatment. Please call for a follow-up appointment with her primary care physician. Please take your medications as prescribed. If you have other concerns and/or complaints please feel free to also call your primary care physician's office or return the ED for further evaluation, management, and treatment. You may take tylenol 1000 mg every 6 hours as needed for pain. Take your medications as prescribed. If taking an antibiotic consider taking a probiotic and/or eating yogurt, but at the least, please take with food as it can cause upset stomach. You have been examined and treated today on an emergency basis only. This is not a substitute for, or an effort to provide, complete comprehensive medical care. It is impossible to recognize and treat all injuries or illnesses in a single emergency department visit. It is therefore important that you follow up closely with [facility], your PCP, and/or your specialist(s). Call as soon as possible for an appointment. Thank you for your time and consideration. I look forward to speaking with you again soon. Please don't hesitate to call us if you have any questions. Problem Qualifiers Additional Impressions: UTI (urinary tract infection) Urinary tract infection type: acute cystitis Hematuria presence: without hematuria Qualified Codes: N30.00 - Acute cystitis without hematuria
== END 2017-07-29 18:00 | disposition left against medical advice (07) ==
LOC: C.EDB 14:05 → C.EDC 18:00
DX: R42 Dizziness and giddiness (principal); N39.0 Urinary tract infection, site not specified; Z99.2 Dependence on renal dialysis; I12.9 Hypertensive chronic kidney disease with stage 1 through stage 4 chronic kidney disease, or unspecified chronic kidney disease; N18.5 Chronic kidney disease, stage 5; I50.30 Unspecified diastolic (congestive) heart failure; D64.9 Anemia, unspecified; Z86.711 Personal history of pulmonary embolism; Z98.51 Tubal ligation status; Z94.0 Kidney transplant status; Z79.899 Other long term (current) drug therapy; Z83.3 Family history of diabetes mellitus; Z82.49 Family history of ischemic heart disease and other diseases of the circulatory system; Z83.79 Family history of other diseases of the digestive system; Z83.2 Family history of diseases of the blood and blood-forming organs and certain disorders involving the immune mechanism

== ENCOUNTER 2017-07-30 23:58 | Emergency (ER) | payer OTHER ==
[~2017-07-30] VITALS: Ht 167.6 cm; Wt 85.6 kg
[~2017-07-30 23:58] MED LIST changes: +CALC500C3 PO; +CEPH-571 PO; -DOXY100C76 PO; +FRS/80 PO
[2017-07-31 00:03] VITALS: TEMP 36.8; Ht 167.6 cm; Wt 85.6 kg
[2017-07-31] MEDS ORDERED: CEPH500C PO (00:37)
[2017-07-31] MEDS ORDERED: NRV/10 PO (00:37)
[2017-07-31] MEDS ORDERED: HYDR-4717 PO (00:37)
[2017-07-31] MEDS ORDERED: CARV25TA2 PO (00:37)
[2017-07-31 01:00] LABS: BASO % 0.2 %; BASO ABS # 0.02 K/uL (0-0.2); COMPLETE YES; EOS % 1.6 %; HEMATOCRIT 31.1 % (37-47); IG% 0.2 %; LYMPH % 15.3 %; LYMPH ABS # 1.33 K/uL (1.2-3.4); MEAN CELL VOLUME 100.3 fL (80-100); MEAN CORPUSCULAR HEMOGLOBIN 32.9 pg (25-34); MEAN CORPUSCULAR HGB CONC 32.8 g/dl (32-36); MEAN PLATELET VOLUME 9.6 fL (7.4-10.4); MONO % 6.2 %; NEUT % 76.5 %; PLATELET COUNT 164 K/uL (130-400); WHITE BLOOD COUNT 8.67 K/uL (4.8-10.8)
[2017-07-31 01:32] LABS: ALKALINE PHOSPHATASE 78 U/L (45-117); ALT/SGPT 22 U/L (12-78); BLOOD UREA NITROGEN 73 mg/dl (7-18); BUN/CREATININE RATIO 4.1 (10-20); CALCIUM 6.7 mg/dl (8.5-10.1); CARBON DIOXIDE 19 mmol/L (21-32); CHLORIDE 91 mmol/L (98-107); GLUCOSE 112 mg/dl (70-99); SODIUM 131 mmol/L (136-145)
[2017-07-31] MEDS ORDERED: ACETAMINOPHEN 325 MG TAB PO STA (01:34)
[2017-07-31] MEDS ORDERED: TRAMADOL HCL 50 MG TAB PO STA (02:16)
--- NOTE | 2017-07-31 02:31 | EMERGENCY ROOM VISIT NOTE ---
History Report prepared by Melibrandall: Keon Gong Under the Supervision of: Dr. Augie Krishnan D.O. First contact with patient: 00:06 Chief Complaint: OTHER COMPLAINT Stated Complaint: BLEEDING WHEN HOOKED UP TO DIALYSIS MACHINE History of Present Illness The patient is a 31 year old female who presents to the Emergency Room with complaints of an episode of bleeding with peritoneal dialysis treatment occurring just prior to arrival. She is on home PD, using her left abdomen, and states that she noticed a large amount of blood coming out of the tube today during her treatment. She states that this occurred during the preliminary drain before she actually started her dialysis. She states that she has had similar symptoms occur once in the past with a ruptured ovarian cyst. The patient had the catheter placed about 6 months ago. She was seen in the ED yesterday and was diagnosed with a UTI. She denies any fevers. The patient denies any known trauma. She notes that she worked 8 hours today, but did not do anything abnormal at work. Source of History: patient Onset: Just prior to arrival Position: abdomen (left side) Quality: other (bleeding during PD treatment) Timing: other (episode) Associated Symptoms: No fevers Review of Systems See HPI for pertinent positives and negatives. A total of ten systems were reviewed and were otherwise negative. Past Medical & Surgical Medical Problems: (1) Anemia (2) CKD (chronic kidney disease) stage V requiring chronic dialysis (3) Diastolic CHF (4) DM2 (diabetes mellitus, type 2) (5) FSGS (focal segmental glomerulosclerosis) (6) HTN (hypertension) (7) Migraine (8) Peritoneal dialysis catheter in place (9) Pulmonary embolism (10) Renal failure Surgical Problems: (1) H/O knee surgery (2) H/O tubal ligation (3) H/O: (4) Kidney transplant status, living related donor Family History Blood clots FATHER BROTHER Crohn's disease FATHER Diabetes mellitus MOTHER Hypertension SISTER Social History Smoking Status: Current Every Day Smoker Alcohol Use: none Drug Use: none Marital Status: Housing Status: lives with friends Occupation Status: unemployed Current/Historical Medications Scheduled Amlodipine Besylate (Amlodipine Besylate), 10 MG PO QAM Calcitriol (Calcitriol), 2 CAP PO QAM Calcium Acetate (Phoslo 667 Mg), 3 CAP PO WM Calcium Acetate (Phoslo 667 Mg), 2 CAP PO WITH SNACKS Calcium Carbonate (Tums), 1 DOSE PO HS Carvedilol (Coreg), 25 MG PO BID Cephalexin Monohydrate (Keflex), 500 MG PO BID Famotidine (Pepcid), 40 MG PO QAM Furosemide (Lasix), 80 MG PO BID Hydralazine Hcl (Apresoline), 75 MG PO BID Lisinopril (Zestril), 20 MG PO BID Lorazepam (Ativan), 0.5 MG PO HS Vortioxetine HBr (Trintellix), 5 MG PO QAM Scheduled PRN Albuterol Hfa (Ventolin Hfa), 2 PUFFS INH Q4H PRN for SOB/Wheezing Allergies Coded Allergies: Cefaclor (Verified Allergy, Intermediate, Rash, 07/31/17) Reported by PT. Amoxicillin (Verified Adverse Reaction, Mild, VOMITING, 07/31/17) Clavulanic Acid (Verified Adverse Reaction, Mild, VOMITING, 07/31/17) Physical Exam Vital Signs Date Time Temp Pulse Resp B/P (MAP) Pulse Ox O2 Delivery O2 Flow Rate FiO2 07/31/17 02:07 82 20 129/76 99 Room Air 07/31/17 00:03 36.8 91 18 123/79 100 Room Air Physical Exam GENERAL: Awake, alert, well-appearing, in no distress HENT: Normocephalic, atraumatic. Oropharynx unremarkable. EYES: Normal conjunctiva. Sclera non-icteric. NECK: Supple. No nuchal rigidity. FROM. No JVD. RESPIRATORY: Clear to auscultation. CARDIAC: Regular rate, normal rhythm. Extremities warm and well perfused. Pulses equal. ABDOMEN: Soft, non-distended. No tenderness to palpation. No rebound or guarding. No masses. PD catheter present in LLQ with red tinged fluid in the catheter. RECTAL: Deferred. MUSCULOSKELETAL: Chest examination reveals no tenderness. The back is symmetrical on inspection without obvious abnormality. There is no CVA tenderness to palpation. No joint edema. LOWER EXTREMITIES: Calves are equal size bilaterally and non-tender. No edema. No discoloration. NEURO: Normal sensorium. No sensory or motor deficits noted. SKIN: No rash or jaundice noted. Medical Decision & Procedures ER Provider Diagnostic Interpretation: CT results per statrad and my review. CT ABDOMEN & PELVIS Without Contrast: Comparison is made to prior CT abdomen/pelvis 04/17/2017. Status post cholecystectomy. Severe atrophy of the kidneys. No hydronephrosis or stone. Partially calcified structure in the right lower quadrant may represent an atrophic, calcified right lower quadrant renal transplant. Peritoneal dialysis catheter is coiled in the right pelvis. Probable right ovarian cyst again noted. This could be further evaluated with ultrasound if clinically indicated. Decompressed bladder. Small fat-containing umbilical hernia. Probable small amount of fluid in the pelvis which appears slightly hyperdense, likely representing blood products. Etiology is unknown. Question relation to a hemorrhagic right ovarian cyst. Laboratory Results 07/31/17 00:36 Red Blood Count 3.10, Mean Corpuscular Volume 100.3, Mean Corpuscular Hemoglobin 32.9, Mean Corpuscular Hemoglobin Concent 32.8, Mean Platelet Volume 9.6, Neutrophils (%) (Auto) 76.5, Lymphocytes (%) (Auto) 15.3, Monocytes (%) ( Auto) 6.2, Eosinophils (%) (Auto) 1.6, Basophils (%) (Auto) 0.2, Neutrophils # ( Auto) 6.62, Lymphocytes # (Auto) 1.33, Monocytes # (Auto) 0.54, Eosinophils # ( Auto) 0.14, Basophils # (Auto) 0.02 07/31/17 00:36 07/31/17 01:46 Test 07/31/17 00:36 07/31/17 01:46 White Blood Count 8.67 K/uL (4.8-10.8) Red Blood Count 3.10 M/uL (4.2-5.4) Hemoglobin 10.2 g/dL (12.0-16.0) Hematocrit 31.1 % (37-47) Mean Corpuscular Volume 100.3 fL (80-100) Mean Corpuscular Hemoglobin 32.9 pg (25-34) Mean Corpuscular Hemoglobin Concent 32.8 g/dl (32-36) Platelet Count 164 K/uL (130-400) Mean Platelet Volume 9.6 fL (7.4-10.4) Neutrophils (%) (Auto) 76.5 % Lymphocytes (%) (Auto) 15.3 % Monocytes (%) (Auto) 6.2 % Eosinophils (%) (Auto) 1.6 % Basophils (%) (Auto) 0.2 % Neutrophils # (Auto) 6.62 K/uL (1.4-6.5) Lymphocytes # (Auto) 1.33 K/uL (1.2-3.4) Monocytes # (Auto) 0.54 K/uL (0.11-0.59) Eosinophils # (Auto) 0.14 K/uL (0-0.5) Basophils # (Auto) 0.02 K/uL (0-0.2) RDW Standard Deviation 60.5 fL (36.4-46.3) RDW Coefficient of Variation 17.2 % (11.5-14.5) Immature Granulocyte % (Auto) 0.2 % Immature Granulocyte # (Auto) 0.02 K/uL (0.00-0.02) Anion Gap 21.0 mmol/L (3-11) Est Creatinine Clear Calc Drug Dose 5.2 ml/min Estimated GFR () 2.7 Estimated GFR (Non- 2.4 BUN/Creatinine Ratio 4.1 (10-20) Calcium Level 6.7 mg/dl (8.5-10.1) Total Bilirubin 0.4 mg/dl (0.2-1) Direct Bilirubin mg/dl (0-0.2) Aspartate Amino Transf (AST/SGOT) U/L (15-37) Alanine Aminotransferase (ALT/SGPT) 22 U/L (12-78) Alkaline Phosphatase 78 U/L (45-117) Total Protein 8.0 gm/dl (6.4-8.2) Albumin 3.3 gm/dl (3.4-5.0) Laboratory results reviewed by me Medications Administered Medications (Trade) Dose Ordered Sig/Sachin Route Start Time Stop Time Status Last Admin Dose Admin Acetaminophen (Tylenol Tab) 650 mg NOW STAT PO 07/31/17 01:34 07/31/17 01:36 DC 07/31/17 01:34 650 MG Tramadol HCl (Ultram Tab) 50 mg NOW STAT PO 07/31/17 02:16 07/31/17 02:18 DC 07/31/17 02:22 50 MG ED Course 0010: The patient was evaluated in room A10. A complete history and physical exam was performed. 0134: Ordered Tylenol Tab 650 mg PO. 0217: I reevaluated the patient. Discussed results and discharge instructions: she verbalized understanding and agreement. The patient is ready for discharge. Medical Decision Differential diagnoses include but are not limited to; catheter trauma, PD catheter dysfunction, bleeding disorder, and hematoma. Patient was found to have ovarian cyst that was hemorrhagic in this is likely the cause of the patient's blood in the dialysis catheter. Reexamination patient states slight pain patient was given Tylenol and Ultram. Patient was told that she can go home and continue her exchange. Medication Reconcilliation Current Medication List: was personally reviewed by me Blood Pressure Screening Patient's blood pressure: Normal blood pressure Blood pressure disposition: Did not require urgent referral Impression Primary Impression: Hemorrhagic ovarian cyst Additional Impressions: Presence of peritoneal dialysis catheter Complication of vascular dialysis catheter Scribe Attestation The scribe's documentation has been prepared under my direction and personally reviewed by me in its entirety. I confirm that the note above accurately reflects all work, treatment, procedures, and medical decision making performed by me. Departure Information Dispostion Home / Self-Care Referrals [facility], Yohana Varner DO (PCP) Patient Instructions Catheter PD and Exit Site Care, Cyst Ruptured Ovarian Tx, ED Cyst Ovarian, My [facility] Health Problem Qualifiers
[2017-07-31 02:38] VITALS: BP 121/73; PULSE 85; O2SAT 100
--- NOTE | 2017-07-31 06:57 | DIAGNOSTIC IMAGING REPORT ---
CT OF THE ABDOMEN AND PELVIS WITHOUT CONTRAST CLINICAL HISTORY: Bleeding from peritoneal dialysis catheter. COMPARISON STUDY: CT of the abdomen and pelvis April 17, 2017. TECHNIQUE: Axial images of the abdomen and pelvis were obtained without IV contrast. Images were reviewed in the axial, sagittal, and coronal planes. A dose lowering technique was utilized adhering to the principles of ALARA. FINDINGS: Lung bases are clear. There is no biliary ductal dilatation status post cholecystectomy. The spleen is lobulated. The adrenal glands and pancreas are unremarkable. As before, both cahto kidneys are markedly atrophic. A peripherally calcified right lower quadrant/pelvic abnormality is unchanged and likely reflects an atrophic failed renal allograft. No pneumatosis, free air or portal venous gas is present. There is no evidence for a bowel obstruction. Note is made of a small amount of fluid within the pelvis with layering hyperdense material suggestive of hemorrhage. The right ovary is obscured on this exam. There may be a right ovarian cyst. These findings could be related to a hemorrhagic right ovarian cyst. A peritoneal dialysis catheter is noted. The catheter is coiled within the posterior upper pelvis/lower abdomen. There is no upper abdominal fluid. No suspicious osseous lesions are present. There is no abdominal or pelvic lymphadenopathy. IMPRESSION: Peritoneal dialysis catheter coiled within the posterior upper pelvis. Small amount of fluid within the pelvis with layering hyperdense material consistent with hemorrhage. Right ovary obscured on this exam but possible right ovarian cyst. The source for this hemorrhage is not definitive but could be related to a ruptured right ovarian hemorrhagic cyst. Electronically signed by: Sebastian Mcclain M.D. 07/31/2017 6:56 AM Dictated Date/Time: 07/31/2017 6:50 AM
== END 2017-07-31 02:38 | disposition home or self-care (01) ==
LOC: C.EDB 23:59 → C.EDA 07-31 02:38
DX: N83.201 Unspecified ovarian cyst, right side (principal); T82.49XA Other complication of vascular dialysis catheter, initial encounter; Z99.2 Dependence on renal dialysis; D64.9 Anemia, unspecified; I12.0 Hypertensive chronic kidney disease with stage 5 chronic kidney disease or end stage renal disease; E11.22 Type 2 diabetes mellitus with diabetic chronic kidney disease; N18.5 Chronic kidney disease, stage 5; I50.30 Unspecified diastolic (congestive) heart failure; G43.909 Migraine, unspecified, not intractable, without status migrainosus; F17.200 Nicotine dependence, unspecified, uncomplicated; Z94.0 Kidney transplant status; Z86.711 Personal history of pulmonary embolism; Z83.2 Family history of diseases of the blood and blood-forming organs and certain disorders involving the immune mechanism; Z83.3 Family history of diabetes mellitus; Z83.79 Family history of other diseases of the digestive system; Z82.49 Family history of ischemic heart disease and other diseases of the circulatory system

== ENCOUNTER 2017-08-04 19:49 | Emergency (ER) | payer OTHER ==
[~2017-08-04] VITALS: Ht 167.6 cm; Wt 82.0 kg
[~2017-08-04 19:49] MED LIST changes: -APR50 PO; +CARV25TA2 PO; -CEPH-571 PO; +CEPH500C PO; -CRG25 PO; +HYDR-4717 PO; +NRV/10 PO; -NRV/5 PO
[2017-08-04 19:55] VITALS: TEMP 36.8; Ht 167.6 cm; Wt 82.0 kg
[2017-08-04] MEDS ORDERED: MoRPHine SULFATE 4 MG/ML 1 ML CARP\\VIAL IV STA (20:12)
[2017-08-04] MEDS ORDERED: ONDANSETRON INJ 2 MG/ML 2 ML VIAL IV STA (20:12)
[2017-08-04] MEDS ORDERED: ACETAMINOPHEN 500 MG TAB PO STA (20:12)
--- NOTE | 2017-08-04 20:22 | EMERGENCY ROOM VISIT NOTE ---
History Report prepared by Katia: Hannah Laureano Under the Supervision of: Dr. Karan Santiago M.D. First contact with patient: 20:04 Chief Complaint: ABDOMINAL PAIN Stated Complaint: SHARP PAIN RT SIDE, SICK TO STOMACH History of Present Illness The patient is a 31 year old white female with a past medical history of CKD, kidney transplant, UTI, ruptured ovarian cyst, PE, DM2 who presents to the ED with a cc of persistent sharp right sided abdominal pain beginning 0400 today. The pain does not radiate elsewhere. She states that "everything" makes her pain worse. She tried taking Tylenol to no significant relief. Positive heartburn, nausea, vomiting. Negative fever, chills, trauma, fall, rib pain. LNMP was 3 weeks ago. Source of History: patient Onset: 0400 Position: abdomen (right sided) Quality: sharp Timing: other (persistent) Modifying Factors (Worsening): other ("everything") Associated Symptoms: + nausea, + vomiting, No fevers, No chills Note: Pt reports heartburn. Pt denies trauma, fall, rib pain. Review of Systems See HPI for pertinent positives and negatives. A total of ten systems were reviewed and were otherwise negative. Past Medical & Surgical Medical Problems: (1) Anemia (2) CKD (chronic kidney disease) stage V requiring chronic dialysis (3) Diastolic CHF (4) DM2 (diabetes mellitus, type 2) (5) FSGS (focal segmental glomerulosclerosis) (6) HTN (hypertension) (7) Migraine (8) Peritoneal dialysis catheter in place (9) Pulmonary embolism (10) Renal failure Surgical Problems: (1) H/O knee surgery (2) H/O tubal ligation (3) H/O: (4) Kidney transplant status, living related donor Family History Blood clots FATHER BROTHER Crohn's disease FATHER Diabetes mellitus MOTHER Hypertension SISTER Social History Smoking Status: Never Smoker Alcohol Use: none Drug Use: none Marital Status: in relationship Housing Status: lives with family Occupation Status: employed Current/Historical Medications Scheduled Amlodipine Besylate (Amlodipine Besylate), 10 MG PO QAM Calcitriol (Calcitriol), 2 CAP PO QAM Calcium Acetate (Phoslo 667 Mg), 3 CAP PO WM Calcium Acetate (Phoslo 667 Mg), 2 CAP PO WITH SNACKS Calcium Carbonate (Tums), 1 DOSE PO HS Carvedilol (Coreg), 25 MG PO BID Cephalexin Monohydrate (Keflex), 500 MG PO BID Famotidine (Pepcid), 40 MG PO QAM Furosemide (Lasix), 80 MG PO BID Hydralazine Hcl (Apresoline), 75 MG PO BID Lisinopril (Lisinopril), 20 MG PO BID Lorazepam (Ativan), 0.5 MG PO HS Tramadol Hcl (Ultram), 50 MG PO Q8H Vortioxetine HBr (Trintellix), 5 MG PO QAM Scheduled PRN Albuterol Hfa (Ventolin Hfa), 2 PUFFS INH Q4H PRN for SOB/Wheezing Oxycodone Immediate Rel Tab (Roxicodone Ir), 2.5 MG PO Q12 PRN for Pain Allergies Coded Allergies: Cefaclor (Verified Allergy, Intermediate, Rash, 08/04/17) Reported by PT. Amoxicillin (Verified Adverse Reaction, Mild, VOMITING, 08/04/17) Clavulanic Acid (Verified Adverse Reaction, Mild, VOMITING, 08/04/17) Physical Exam Vital Signs Date Time Temp Pulse Resp B/P (MAP) Pulse Ox O2 Delivery O2 Flow Rate FiO2 08/04/17 23:11 80 20 112/56 96 08/04/17 22:26 79 18 119/76 96 Room Air 08/04/17 20:42 84 08/04/17 19:55 36.8 98 20 106/71 100 Room Air Physical Exam GENERAL: Awake, alert, well-appearing, NAD HENT: Normocephalic, atraumatic. EYES: Normal conjunctiva. Sclera non-icteric. NECK: Supple. No nuchal rigidity. FROM. RESPIRATORY: CTAB, no rhonchi, wheezing, crackles CARDIAC: RRR, no MRG ABDOMEN: Soft, right sided flank pain, BS+, catheter in the LLQ, CDI MSK: No chest wall TTP, no LE edema, no CVA TTP NEURO: GCS 15, CN 2-12 intact, moves all 4s on command SKIN: No rash or jaundice noted. Medical Decision & Procedures ER Provider Diagnostic Interpretation: Xray results as stated below per my and radiologist interpretation. Radiology results as stated below per my review and radiologist interpretation: CHEST ONE VIEW PORTABLE HISTORY: 31 years-old Female ABDOMINAL PAIN/GI acute generalized abdominal pain with nausea COMPARISON: Chest radiograph 07/29/2017 TECHNIQUE: Portable upright AP view of the chest FINDINGS: Cardiomediastinal and hilar silhouettes are within normal limits. No pneumothorax, pleural effusion, focal airspace consolidation or overt pulmonary edema. Bones of the chest appear grossly intact. Surgical clips of the right upper abdomen suggest prior cholecystectomy. IMPRESSION: No acute cardiopulmonary process. The above report was generated using voice recognition software. It may contain grammatical, syntax or spelling errors. Electronically signed by: Alejandro Copeland M.D. 08/04/2017 8:59 PM Dictated Date/Time: 08/04/2017 8:59 PM ABDOMEN AND PELVIS CT WITHOUT CONTRAST CT DOSE: 547.57 mGy.cm HISTORY: Acute generalized abdominal pain with peritoneal dialysis catheter acute abdominal pain TECHNIQUE: Multiaxial CT images of the abdomen and pelvis were performed without contrast. A dose lowering technique was utilized adhering to the principles of ALARA. COMPARISON STUDY: CT abdomen and pelvis 07/31/2017. FINDINGS: The lung bases are clear. No pneumatosis or pneumoperitoneum. Imaged inferior cardiac chambers demonstrate coronary arterial disease. The liver, spleen, pancreas and adrenal glands are unremarkable. Prior cholecystectomy. Bilateral kidneys are again markedly atrophic. Suggestion of a cystic lesion of the right adnexum measuring 3.4 x 3.1 cm with mild 3 pelvic fluid. Uterus and left adnexum are unremarkable. Mild atherosclerosis of the aorta. No bulky adenopathy. No bowel obstruction or focal bowel wall thickening. Mild colonic diverticulosis without diverticulitis. The appendix appears normal. Peritoneal dialysis catheter is again noted with distal tip coiling within the right lower abdomen inferior to the right hepatic lobe. Minimal fluid is noted adjacent to the catheter tip. This has been repositioned from prior. Soft tissues are unremarkable. Postsurgical changes of the anterior abdominal wall. The bones appear intact. Calcified structure of the right lower quadrant mesentery is again seen, 3.8 x 3.2 cm suggesting failed renal allograft. IMPRESSION: 1. Repositioned peritoneal dialysis catheter, now coiling and terminating within the right lower quadrant of the abdomen inferior to the right hepatic lobe. 2. Probable right ovarian cyst with persistent mild free pelvic fluid. These findings could be further evaluated with pelvic ultrasound. 3. Additional findings as above. Electronically signed by: Alejandro Copeland M.D. 08/04/2017 9:27 PM Dictated Date/Time: 08/04/2017 9:19 PM Laboratory Results 08/04/17 21:20 Red Blood Count 3.20, Mean Corpuscular Volume 100.3, Mean Corpuscular Hemoglobin 33.1, Mean Corpuscular Hemoglobin Concent 33.0, Mean Platelet Volume 9.1, Neutrophils (%) (Auto) 76.3, Lymphocytes (%) (Auto) 15.1, Monocytes (%) ( Auto) 6.5, Eosinophils (%) (Auto) 1.5, Basophils (%) (Auto) 0.3, Neutrophils # ( Auto) 6.04, Lymphocytes # (Auto) 1.19, Monocytes # (Auto) 0.51, Eosinophils # ( Auto) 0.12, Basophils # (Auto) 0.02 08/04/17 21:20 Test 08/04/17 20:30 08/04/17 21:20 Urine Color YELLOW Urine Appearance TURBID (CLEAR) Urine pH 8.0 (4.5-7.5) Urine Specific [place] 1.014 (1.000-1.030) Urine Protein 2+ (NEG) Urine Glucose (UA) 1+ (NEG) Urine Ketones NEG (NEG) Urine Occult Blood TRACE (NEG) Urine Nitrite NEG (NEG) Urine Bilirubin NEG (NEG) Urine Urobilinogen NEG (NEG) Urine Leukocyte Esterase TRACE (NEG) Urine WBC (Auto) >30 /hpf (0-5) Urine RBC (Auto) 0-4 /hpf (0-4) Urine Hyaline Casts (Auto) 1-5 /lpf (0-5) Urine Epithelial Cells (Auto) >30 /lpf (0-5) Urine Bacteria (Auto) 3+ (NEG) Urine Pathogenic Casts /lpf (0) Urine Yeast (Auto) (NONE PRSENT) Urine Test NEG (NEG) White Blood Count 7.90 K/uL (4.8-10.8) Red Blood Count 3.20 M/uL (4.2-5.4) Hemoglobin 10.6 g/dL (12.0-16.0) Hematocrit 32.1 % (37-47) Mean Corpuscular Volume 100.3 fL (80-100) Mean Corpuscular Hemoglobin 33.1 pg (25-34) Mean Corpuscular Hemoglobin Concent 33.0 g/dl (32-36) Platelet Count 143 K/uL (130-400) Mean Platelet Volume 9.1 fL (7.4-10.4) Neutrophils (%) (Auto) 76.3 % Lymphocytes (%) (Auto) 15.1 % Monocytes (%) (Auto) 6.5 % Eosinophils (%) (Auto) 1.5 % Basophils (%) (Auto) 0.3 % Neutrophils # (Auto) 6.04 K/uL (1.4-6.5) Lymphocytes # (Auto) 1.19 K/uL (1.2-3.4) Monocytes # (Auto) 0.51 K/uL (0.11-0.59) Eosinophils # (Auto) 0.12 K/uL (0-0.5) Basophils # (Auto) 0.02 K/uL (0-0.2) RDW Standard Deviation 60.2 fL (36.4-46.3) RDW Coefficient of Variation 16.4 % (11.5-14.5) Immature Granulocyte % (Auto) 0.3 % Immature Granulocyte # (Auto) 0.02 K/uL (0.00-0.02) Anion Gap 19.0 mmol/L (3-11) Est Creatinine Clear Calc Drug Dose 5.7 ml/min Estimated GFR () 3.2 Estimated GFR (Non- 2.8 BUN/Creatinine Ratio 5.0 (10-20) Calcium Level 7.3 mg/dl (8.5-10.1) Total Bilirubin 0.4 mg/dl (0.2-1) Direct Bilirubin 0.1 mg/dl (0-0.2) Aspartate Amino Transf (AST/SGOT) 16 U/L (15-37) Alanine Aminotransferase (ALT/SGPT) 26 U/L (12-78) Alkaline Phosphatase 71 U/L (45-117) Total Protein 7.6 gm/dl (6.4-8.2) Albumin 3.1 gm/dl (3.4-5.0) Lipase 378 U/L (73-393) Laboratory results reviewed by me Medications Administered Medications (Trade) Dose Ordered Sig/Sachin Route Start Time Stop Time Status Last Admin Dose Admin Ondansetron HCl (Zofran Inj) 4 mg NOW STAT IV 08/04/17 20:12 08/04/17 20:15 DC 08/04/17 21:53 4 MG Acetaminophen (Tylenol Tab) 1,000 mg NOW STAT PO 08/04/17 20:12 08/04/17 20:15 DC 08/04/17 21:54 1,000 MG Morphine Sulfate (MoRPHine SULFATE INJ) 4 mg NOW STAT IV 08/04/17 20:12 08/04/17 20:15 DC 08/04/17 21:53 4 MG ED Course 2008: The patient was evaluated in room B12B. A complete history and physical exam was performed. 2132: I reevaluated the patient. She is still having some pain. 2237: I reevaluated the patient. She is feeling better. Discussed results and discharge instructions: she verbalized understanding and agreement. The patient is ready for discharge. Medical Decision The patient is a 31 year old white female with a past medical history of CKD, kidney transplant, UTI, ruptured ovarian cyst, PE, DM2 who presents to the ED with a cc of persistent sharp right sided abdominal pain beginning 0400 today. Differential diagnosis: Etiologies such as appendicitis, diverticulitis, PUD, biliary pathology, UTI, pancreatitis, obstruction, mesenteric ischemia, aortic pathology, infections, inflammatory bowel disease, renal colic, as well as others were entertained. Patient was seen and evaluated the bedside. Patient was complaining of some right-sided flank pain. Patient does still make urine. Patient did have some nausea without any vomiting. Patient otherwise is fairly well-appearing. Patient is a history of peritoneal dialysis secondary to glomerular sclerosis and failed kidney transplant. Patient denies any fevers or chills. Patient did have recent antibiotics for a UTI. On exam patient does have some mild right-sided pain. Patient does state that she did have a recently diagnosed ruptured ovarian cyst. Patient did have a chest x-ray, blood work, CT noncontrast of the abdomen pelvis completed. Patient's CT the abdomen pelvis did show that she still has some free fluid in the pelvis this is likely secondary to the prior ruptured ovarian cyst. Patient's peritoneal dialysis catheter is in the right upper quadrant as well. Patient's pain is most likely related to her ruptured ovarian cyst. Patient was given pain medication was also given for nausea. Patient's white blood cell count within normal limits. Patient does have mild anemia which is chronic. This may be related to her CK D. Patient does have elevated BUN/creatinine. This is also chronic. Patient' s potassium is less than 6. I reevaluated the patient was feeling much improved. Patient was given pain medications for home and also told take Tylenol. He is alert patient's urinalysis did show questionable UTI patient was a symptomatically did have a fair amount of skin cells given that she was recently treated for UTI we'll not treat at this time and instead wait for the culture. Patient was deemed suitable for outpatient follow-up and treatment. Patient was given strict follow-up, discharge, and return precautions. All questions were answered. Patient was deemed suitable for outpatient follow-up at this time. Patient agreed with the plan of care and was safely discharged home. Medication Reconcilliation Current Medication List: was personally reviewed by me Blood Pressure Screening Patient's blood pressure: Normal blood pressure Blood pressure disposition: Did not require urgent referral Impression Primary Impression: Peritoneal dialysis catheter in place Additional Impressions: Ruptured ovarian cyst Abdominal pain Scribe Attestation The scribe's documentation has been prepared under my direction and personally reviewed by me in its entirety. I confirm that the note above accurately reflects all work, treatment, procedures, and medical decision making performed by me. Departure Information Dispostion Home / Self-Care Prescriptions Tramadol Hcl (ULTRAM) 50 Mg Tab 50 MG PO Q8H, #12 TAB PRN PAIN Prov: Karan Santiago M.D. 08/04/17 Oxycodone Immediate Rel Tab (ROXICODONE IR) 5 Mg Tab 2.5 MG PO Q12 Y for Pain, #6 TAB Prov: Karan Santiago M.D. 08/04/17 Referrals Adolph Aldridge M.D. (PCP) Patient Instructions Abdominal Pain - [facility], [facility] Additional Instructions Please return to the emergency department if you have worsening or recurrent symptoms not amenable to at-home treatment. Please call for a follow-up appointment with her primary care physician. Please take your medications as prescribed. If you have other concerns and/or complaints please feel free to also call your primary care physician's office or return the ED for further evaluation, management, and treatment. You were found to have an elevated blood pressure today (>120 sytolic or >90 diastolic). Per medicare guidelines, you need to follow up with this blood pressure screening with your Primary Care Physician (PCP). For a new PCP call [phone]. You received narcotic or benzodiazepene medication while in the emergency room today. This is an addictive medication that may cause drowziness as well as constipation. Do not drive, operate heavy machinery, or drink alcohol under the influence of this medication. Avoid NSAIDs. You may take tylenol 650 mg every 6 hours as needed for pain. You may take tramadol and Roxicodone. You should take the tramadol first and if he still have pain control the Roxicodone. Please note that both medications can make you sleepy and sedated. He should not take them that he required a full attention to do any sort of activities. Furthermore, the Roxicodone is an addictive narcotic medication and should be used only if needed after trying all other remedies. Take your medications as prescribed. You have been examined and treated today on an emergency basis only. This is not a substitute for, or an effort to provide, complete comprehensive medical care. It is impossible to recognize and treat all injuries or illnesses in a single emergency department visit. It is therefore important that you follow up closely with [facility], your PCP, and/or your specialist(s). Call as soon as possible for an appointment. Thank you for your time and consideration. I look forward to speaking with you again soon. Please don't hesitate to call us if you have any questions. Problem Qualifiers Additional Impressions: Abdominal pain Abdominal location: unspecified location Qualified Codes: R10.9 - Unspecified abdominal pain
[2017-08-04] MEDS ORDERED: LSN40 PO (20:56)
[2017-08-04] MEDS ORDERED: APR25 PO (20:56)
[2017-08-04 21:01] LABS: URINE APPEARANCE TURBID (CLEAR); URINE BILIRUBIN NEG (NEG); URINE COLOR YELLOW; URINE EPITHELIAL CELL AUTO >30 /lpf (0-5); URINE NITRITE NEG (NEG); URINE SPECIFIC GRAVITY 1.014 (1.000-1.030); UROBILINOGEN NEG (NEG); ZZUR CULT IF INDIC CLEAN CATCH YES
--- NOTE | 2017-08-04 21:01 | DIAGNOSTIC IMAGING REPORT ---
CHEST ONE VIEW PORTABLE HISTORY: 31 years-old Female ABDOMINAL PAIN/GI acute generalized abdominal pain with nausea COMPARISON: Chest radiograph 07/29/2017 TECHNIQUE: Portable upright AP view of the chest FINDINGS: Cardiomediastinal and hilar silhouettes are within normal limits. No pneumothorax, pleural effusion, focal airspace consolidation or overt pulmonary edema. Bones of the chest appear grossly intact. Surgical clips of the right upper abdomen suggest prior cholecystectomy. IMPRESSION: No acute cardiopulmonary process. The above report was generated using voice recognition software. It may contain grammatical, syntax or spelling errors. Electronically signed by: Alejandro Copeland M.D. 08/04/2017 8:59 PM Dictated Date/Time: 08/04/2017 8:59 PM
[2017-08-04 21:12] LABS: MANUAL MICROSCOPIC REQUIRED? NO; REVIEW REQ? YES; SULFASALICYLIC ACID POS (NEG)
--- NOTE | 2017-08-04 21:29 | DIAGNOSTIC IMAGING REPORT ---
ABDOMEN AND PELVIS CT WITHOUT CONTRAST CT DOSE: 547.57 mGy.cm HISTORY: Acute generalized abdominal pain with peritoneal dialysis catheter acute abdominal pain TECHNIQUE: Multiaxial CT images of the abdomen and pelvis were performed without contrast. A dose lowering technique was utilized adhering to the principles of ALARA. COMPARISON STUDY: CT abdomen and pelvis 07/31/2017. FINDINGS: The lung bases are clear. No pneumatosis or pneumoperitoneum. Imaged inferior cardiac chambers demonstrate coronary arterial disease. The liver, spleen, pancreas and adrenal glands are unremarkable. Prior cholecystectomy. Bilateral kidneys are again markedly atrophic. Suggestion of a cystic lesion of the right adnexum measuring 3.4 x 3.1 cm with mild 3 pelvic fluid. Uterus and left adnexum are unremarkable. Mild atherosclerosis of the aorta. No bulky adenopathy. No bowel obstruction or focal bowel wall thickening. Mild colonic diverticulosis without diverticulitis. The appendix appears normal. Peritoneal dialysis catheter is again noted with distal tip coiling within the right lower abdomen inferior to the right hepatic lobe. Minimal fluid is noted adjacent to the catheter tip. This has been repositioned from prior. Soft tissues are unremarkable. Postsurgical changes of the anterior abdominal wall. The bones appear intact. Calcified structure of the right lower quadrant mesentery is again seen, 3.8 x 3.2 cm suggesting failed renal allograft. IMPRESSION: 1. Repositioned peritoneal dialysis catheter, now coiling and terminating within the right lower quadrant of the abdomen inferior to the right hepatic lobe. 2. Probable right ovarian cyst with persistent mild free pelvic fluid. These findings could be further evaluated with pelvic ultrasound. 3. Additional findings as above. Electronically signed by: Alejandro Copeland M.D. 08/04/2017 9:27 PM Dictated Date/Time: 08/04/2017 9:19 PM
[2017-08-04 21:36] LABS: BASO % 0.3 %; BASO ABS # 0.02 K/uL (0-0.2); COMPLETE YES; EOS % 1.5 %; HEMATOCRIT 32.1 % (37-47); IG% 0.3 %; LYMPH % 15.1 %; LYMPH ABS # 1.19 K/uL (1.2-3.4); MEAN CELL VOLUME 100.3 fL (80-100); MEAN CORPUSCULAR HEMOGLOBIN 33.1 pg (25-34); MEAN PLATELET VOLUME 9.1 fL (7.4-10.4); MONO % 6.5 %; NEUT % 76.3 %; PLATELET COUNT 143 K/uL (130-400)
[2017-08-04] MEDS ORDERED: HYDROCODONE/ACETAMI 10/325 TAB PO STA (21:39)
[2017-08-04] MEDS ORDERED: MoRPHine SULFATE 10 MG/ML CARP/VIAL IV STA (21:39)
[2017-08-04 22:11] LABS: CALCIUM 7.3 mg/dl (8.5-10.1); CREATININE 15.4 mg/dl (0.60-1.20); POTASSIUM 5.2 mmol/L (3.5-5.1)
[2017-08-04] MEDS ORDERED: OXYC1TAB3 PO (22:47)
[2017-08-04] MEDS ORDERED: TRAM-453 PO (22:47)
[2017-08-04 23:11] VITALS: BP 112/56; PULSE 80; O2SAT 96
== END 2017-08-04 23:12 | disposition home or self-care (01) ==
LOC: C.EDB 19:50
DX: N83.201 Unspecified ovarian cyst, right side (principal); R10.9 Unspecified abdominal pain; Z99.2 Dependence on renal dialysis; I13.2 Hypertensive heart and chronic kidney disease with heart failure and with stage 5 chronic kidney disease, or end stage renal disease; E11.22 Type 2 diabetes mellitus with diabetic chronic kidney disease; N18.5 Chronic kidney disease, stage 5; I50.32 Chronic diastolic (congestive) heart failure; Z86.711 Personal history of pulmonary embolism; Z87.440 Personal history of urinary (tract) infections; Z94.0 Kidney transplant status; Z98.51 Tubal ligation status; Z98.891 History of uterine scar from previous surgery; Z98.890 Other specified postprocedural states; Z82.49 Family history of ischemic heart disease and other diseases of the circulatory system; Z83.3 Family history of diabetes mellitus; Z83.79 Family history of other diseases of the digestive system; Z79.899 Other long term (current) drug therapy

== ENCOUNTER 2017-08-17 12:12 | Emergency (ER) | payer OTHER ==
[~2017-08-17] VITALS: Ht 167.6 cm; Wt 79.9 kg
[~2017-08-17 12:12] MED LIST changes: -CARV25TA2 PO; -CEPH500C PO; -HYDR-4717 PO; -LISI-725 PO; -NRV/10 PO; +ULT50X PO; +[UNRECOGNIZED DRUG - CODE] PO
[2017-08-17 12:14] VITALS: TEMP 36.7; Ht 167.6 cm; Wt 79.9 kg
[2017-08-17] MEDS ORDERED: SODIUM CHLORIDE 0.9% 500ML 500 ML IV STA (12:26)
[2017-08-17] MEDS ORDERED: SODIUM CHLORIDE 0.9% 1000ML 1,000 ML IV STA (12:37)
--- NOTE | 2017-08-17 12:55 | DIAGNOSTIC IMAGING REPORT ---
CHEST ONE VIEW PORTABLE HISTORY: EVALUATE ALTERED MENTAL STATUS/WEAKNESS COMPARISON: Chest 08/11/2017. FINDINGS: Surgical clips are seen within the right upper quadrant of the abdomen. The heart is normal in size. No pleural effusions. No pneumothorax. The lungs are clear. IMPRESSION: No acute process. Electronically signed by: Jose Jenkins M.D. 08/17/2017 12:53 PM Dictated Date/Time: 08/17/2017 12:52 PM
[2017-08-17 13:09] LABS: BASO % 0.1 %; BASO ABS # 0.01 K/uL (0-0.2); COMPLETE YES; EOS % 2.8 %; HEMATOCRIT 33.2 % (37-47); IG% 0.2 %; LYMPH ABS # 1.13 K/uL (1.2-3.4); MEAN CELL VOLUME 99.1 fL (80-100); MEAN CORPUSCULAR HEMOGLOBIN 33.4 pg (25-34); MEAN CORPUSCULAR HGB CONC 33.7 g/dl (32-36); MEAN PLATELET VOLUME 9.2 fL (7.4-10.4); MONO % 7.8 %; NEUT % 75.1 %; PLATELET COUNT 195 K/uL (130-400); RED BLOOD COUNT 3.35 M/uL (4.2-5.4); WHITE BLOOD COUNT 8.08 K/uL (4.8-10.8)
[2017-08-17 13:33] LABS: PARTIAL THROMBOPLASTIN RATIO 0.9; PROTHROMBIN TIME (PATIENT) 10.8 SECONDS (9.0-12.0)
[2017-08-17 13:49] LABS: CALCIUM 8.9 mg/dl (8.5-10.1); CKMB/CK RATIO 1.3 (0-3.0); CREATININE 18.8 mg/dl (0.60-1.20); MAGNESIUM 2.6 mg/dl (1.8-2.4); POTASSIUM 4.6 mmol/L (3.5-5.1)
[2017-08-17] MEDS ORDERED: AZITTAB PO (14:10)
--- NOTE | 2017-08-17 14:10 | EMERGENCY ROOM VISIT NOTE ---
History Report prepared by Katia: Letitia Luz Under the Supervision of: Dr. Baljit Lewis D.O. First contact with patient: 12:25 Chief Complaint: OTHER COMPLAINT Stated Complaint: LIGHT HEADED History of Present Illness The patient is a 31 year old female who presents to the Emergency Room with complaints of constant feeling of lightheadedness beginning this morning. The patient's symptoms worsen when standing and walking. She notes sinus pressure but denies any fever, cough, chest pain, shortness of breath, abdominal pain . The patient is on peritoneal dialysis since March. She does her peritoneal dialysis every night. She reports decreased appetite starting three days ago. The patient states that her blood pressure has been low for the past 3-4 weeks. Source of History: patient Onset: this morning Position: other (generalized) Quality: other (lightheadedness) Timing: constant Modifying Factors (Worsening): other (standing or walking) Associated Symptoms: No fevers, No chest pain, No SOB, No urinary symptoms Review of Systems See HPI for pertinent positives & negatives. A total of 10 systems reviewed and were otherwise negative. Past Medical & Surgical Medical Problems: (1) Anemia (2) CKD (chronic kidney disease) stage V requiring chronic dialysis (3) Diastolic CHF (4) DM2 (diabetes mellitus, type 2) (5) FSGS (focal segmental glomerulosclerosis) (6) HTN (hypertension) (7) Migraine (8) Peritoneal dialysis catheter in place (9) Pulmonary embolism (10) Renal failure Surgical Problems: (1) H/O knee surgery (2) H/O tubal ligation (3) H/O: (4) Kidney transplant status, living related donor Family History Blood clots FATHER BROTHER Crohn's disease FATHER Diabetes mellitus MOTHER Hypertension SISTER Social History Smoking Status: Current Every Day Smoker Alcohol Use: none Drug Use: none Marital Status: in relationship Housing Status: lives with family Occupation Status: employed Current/Historical Medications Scheduled Azithromycin (Zithromax Z-Manan), 0 PO UD Calcitriol (Calcitriol), 2 CAP PO QAM Calcium Acetate (Phoslo 667 Mg), 3 CAP PO WM Calcium Acetate (Phoslo 667 Mg), 2 CAP PO WITH SNACKS Calcium Carbonate (Tums), 3 TABS PO HS Famotidine (Pepcid), 40 MG PO QAM Furosemide (Lasix), 80 MG PO BID Lorazepam (Ativan), 0.5 MG PO HS Vortioxetine HBr (Trintellix), 5 MG PO QAM Scheduled PRN Albuterol Hfa (Ventolin Hfa), 2 PUFFS INH Q4H PRN for SOB/Wheezing Tramadol HCl (Tramadol HCl), 25-50 MG PO Q6H PRN for Pain Allergies Coded Allergies: Cefaclor (Verified Allergy, Intermediate, Rash, 08/17/17) Reported by PT. Amoxicillin (Verified Adverse Reaction, Mild, VOMITING, 08/17/17) Clavulanic Acid (Verified Adverse Reaction, Mild, VOMITING, 08/17/17) Physical Exam Vital Signs Date Time Temp Pulse Resp B/P (MAP) Pulse Ox O2 Delivery O2 Flow Rate FiO2 08/17/17 13:03 100 18 91/51 98 Room Air 08/17/17 12:35 101 08/17/17 12:14 36.7 120 18 75/50 94 Room Air Physical Exam CONSTITUTIONAL/VITAL SIGNS: Reviewed / noted above. GENERAL: Non-toxic in appearance. INTEGUMENTARY: Warm, dry, and [place]. HEAD: Normocephalic. EYES: without scleral icterus or trauma. ENT/OROPHARYNX: clear and moist. LYMPHADENOPATHY/NECK: Is supple without lymphadenopathy or meningismus. RESPIRATORY: Lungs clear and equal. CARDIOVASCULAR: Regular rate and rhythm. GI/ABDOMEN: Peritoneal dialysis catheter in left lower abdomen. Soft and nontender. No organomegaly or pulsatile mass. No rebound or guarding. Normal bowel sounds. EXTREMITIES: Warm and well perfused. BACK: No CVA tenderness. NEUROLOGICAL: Intact without focal deficits. PSYCHIATRIC: normal affect. MUSCULOSKELETAL: Normally developed with good muscle tone. Medical Decision & Procedures ER Provider Diagnostic Interpretation: Radiology results as stated below per my review and radiologist interpretation: CHEST ONE VIEW PORTABLE FINDINGS: Surgical clips are seen within the right upper quadrant of the abdomen. The heart is normal in size. No pleural effusions. No pneumothorax. The lungs are clear. IMPRESSION: No acute process. Electronically signed by: Jose Jenkins M.D. Laboratory Results 08/17/17 12:49 Red Blood Count 3.35, Mean Corpuscular Volume 99.1, Mean Corpuscular Hemoglobin 33.4, Mean Corpuscular Hemoglobin Concent 33.7, Mean Platelet Volume 9.2, Neutrophils (%) (Auto) 75.1, Lymphocytes (%) (Auto) 14.0, Monocytes (%) (Auto) 7.8, Eosinophils (%) (Auto) 2.8, Basophils (%) (Auto) 0.1, Neutrophils # (Auto) 6.06, Lymphocytes # (Auto) 1.13, Monocytes # (Auto) 0.63, Eosinophils # (Auto) 0.23, Basophils # (Auto) 0.01 08/17/17 12:49 Test 08/17/17 12:49 White Blood Count 8.08 K/uL (4.8-10.8) Red Blood Count 3.35 M/uL (4.2-5.4) Hemoglobin 11.2 g/dL (12.0-16.0) Hematocrit 33.2 % (37-47) Mean Corpuscular Volume 99.1 fL (80-100) Mean Corpuscular Hemoglobin 33.4 pg (25-34) Mean Corpuscular Hemoglobin Concent 33.7 g/dl (32-36) Platelet Count 195 K/uL (130-400) Mean Platelet Volume 9.2 fL (7.4-10.4) Neutrophils (%) (Auto) 75.1 % Lymphocytes (%) (Auto) 14.0 % Monocytes (%) (Auto) 7.8 % Eosinophils (%) (Auto) 2.8 % Basophils (%) (Auto) 0.1 % Neutrophils # (Auto) 6.06 K/uL (1.4-6.5) Lymphocytes # (Auto) 1.13 K/uL (1.2-3.4) Monocytes # (Auto) 0.63 K/uL (0.11-0.59) Eosinophils # (Auto) 0.23 K/uL (0-0.5) Basophils # (Auto) 0.01 K/uL (0-0.2) RDW Standard Deviation 56.9 fL (36.4-46.3) RDW Coefficient of Variation 16.6 % (11.5-14.5) Immature Granulocyte % (Auto) 0.2 % Immature Granulocyte # (Auto) 0.02 K/uL (0.00-0.02) Nucleated RBC Absolute Count (auto) 0.02 K/uL (0-0) Nucleated Red Blood Cells % 0.3 % Prothrombin Time 10.8 SECONDS (9.0-12.0) Prothromb Time International Ratio 1.0 (0.9-1.1) Activated Partial Thromboplast Time 23.8 SECONDS (21.0-31.0) Partial Thromboplastin Ratio 0.9 Anion Gap 20.0 mmol/L (3-11) Est Creatinine Clear Calc Drug Dose 4.6 ml/min Estimated GFR () 2.5 Estimated GFR (Non- 2.2 BUN/Creatinine Ratio 4.0 (10-20) Calcium Level 8.9 mg/dl (8.5-10.1) Magnesium Level 2.6 mg/dl (1.8-2.4) Total Bilirubin 0.4 mg/dl (0.2-1) Direct Bilirubin 0.1 mg/dl (0-0.2) Aspartate Amino Transf (AST/SGOT) 11 U/L (15-37) Alanine Aminotransferase (ALT/SGPT) 18 U/L (12-78) Alkaline Phosphatase 77 U/L (45-117) Total Creatine Kinase 46 U/L (26-192) Creatine Kinase MB 0.6 ng/ml (0.5-3.6) Creatine Kinase MB Ratio 1.3 (0-3.0) Total Protein 8.4 gm/dl (6.4-8.2) Albumin 3.4 gm/dl (3.4-5.0) Lipase 114 U/L (73-393) Laboratory results as stated above per my review. Medications Administered Medications (Trade) Dose Ordered Sig/Sachin Route Start Time Stop Time Status Last Admin Dose Admin Sodium Chloride 1,000 ml @ 999 mls/hr Q1H1M STAT IV 08/17/17 12:37 08/17/17 13:37 DC 08/17/17 12:37 999 MLS/HR ECG Indication: weakness Rate (beats per minute): 101 Rhythm: sinus tachycardia Findings: no ectopy, other (no acute injury) ED Course 1230: Previous medical records were reviewed. The patient was evaluated in room C10. A complete history and physical examination was performed. 1237: Ordered Sodium Chloride 1000 ml @ 999 mls/hr IV. 1411: On reevaluation, the patient is resting comfortably. I discussed the results and findings with the patient. She verbalized agreement of the treatment plan. The patient was discharged home. Medical Decision Differential includes acute coronary syndrome, myocardial infarction, CVA, TIA, anemia, infection, pneumonia, UTI, pyelonephritis, poor nutrition, dehydration, electrolyte disturbance,hypoglycemia. This is a 31-year-old female who presents to the ED with a chief complaint of feeling lightheaded when she gets up. She denies any other symptoms other than some discomfort in the right maxillary sinus. She feels like she might have an infection there. She's had a right basilar sinus discomfort for several days. She denies any fevers. No chest pains or shortness of breath. No abdominal pains. She has not had a good appetite for the past few days. She's had decreased by mouth intake. The patient has positive orthostatic vital signs. Blood work reveals chronic renal insufficiency that appears to be slightly worse than her baseline. She is not anemic. No significant leukocytosis. Electrolytes are unremarkable. The patient was hydrated with 1 L normal saline IV. She is a peritoneal dialysis patient. She also states that she produces urine. After the 1 L was provided, the patient feels much better. She requested antibiotic for her sinus infection. She was discharged on Z-Manan. Medication Reconcilliation Current Medication List: was personally reviewed by me Blood Pressure Screening Patient's blood pressure: Normal blood pressure Impression Primary Impression: Orthostatic dizziness Additional Impressions: Dehydration Sinusitis Scribe Attestation The scribe's documentation has been prepared under my direction and personally reviewed by me in its entirety. I confirm that the note above accurately reflects all work, treatment, procedures, and medical decision making performed by me. Departure Information Dispostion Home / Self-Care Prescriptions Azithromycin (ZITHROMAX Z-MANAN) 250 Mg Tab 0 PO UD, #1 PKT 2 TABS DAY 1, THEN 1 TAB DAILY FOR 4 DAYS Prov: Baljit Lewis D.O. 08/17/17 Referrals Adolph Aldridge M.D. (PCP) Forms HOME CARE DOCUMENTATION FORM, IMPORTANT VISIT INFORMATION, WORK / SCHOOL INSTRUCTIONS Patient Instructions My [facility] Additional Instructions Zithromax as prescribed. Drink plenty of fluids. Follow-up with your doctor for further care and evaluation in 1-2 days. Return to the emergency department for worsening or new symptoms or any concerns. You have been examined and treated today on an emergency basis only. This is not a substitute for, or an effort to provide, complete comprehensive medical care. It is impossible to recognize and treat all injuries or illnesses in a single emergency department visit. It is therefore important that you follow up closely with your doctor. Call as soon as possible for an appointment. Problem Qualifiers
[2017-08-17 14:25] VITALS: BP 98/62; PULSE 89; O2SAT 91
== END 2017-08-17 14:23 | disposition home or self-care (01) ==
LOC: C.EDB 12:13 → C.EDC 14:23
DX: I95.1 Orthostatic hypotension (principal); E86.0 Dehydration; J32.9 Chronic sinusitis, unspecified; I13.2 Hypertensive heart and chronic kidney disease with heart failure and with stage 5 chronic kidney disease, or end stage renal disease; E11.22 Type 2 diabetes mellitus with diabetic chronic kidney disease; N18.5 Chronic kidney disease, stage 5; I50.30 Unspecified diastolic (congestive) heart failure; Z99.2 Dependence on renal dialysis; Z94.0 Kidney transplant status; F17.200 Nicotine dependence, unspecified, uncomplicated; Z82.49 Family history of ischemic heart disease and other diseases of the circulatory system; Z83.79 Family history of other diseases of the digestive system; Z83.3 Family history of diabetes mellitus

== ENCOUNTER 2017-08-20 12:33 | Emergency (ER) | payer OTHER ==
[~2017-08-20] VITALS: Ht 160 cm; Wt 80.4 kg
[~2017-08-20 12:33] MED LIST changes: +AZITTAB PO
[2017-08-20 12:51] VITALS: BP 104/71; PULSE 100; TEMP 36.9; O2SAT 96; Ht 160 cm; Wt 80.4 kg
== END 2017-08-20 13:38 | disposition left against medical advice (07) ==
LOC: C.EDB 12:34
DX: R11.10 Vomiting, unspecified (principal)

== ENCOUNTER 2017-08-30 18:37 | Observation (INO) | payer OTHER ==
[~2017-08-30] VITALS: Ht 167.6 cm; Wt 84.9 kg
[~2017-08-30 18:37] MED LIST changes: -AZITTAB PO; -[UNRECOGNIZED DRUG - CODE] PO
[2017-08-30] MEDS ORDERED: SODIUM CHLORIDE 0.9% 1000ML 1,000 ML IV STA (18:51)
[2017-08-30] MEDS ORDERED: SODIUM CHLORIDE 0.9% 1000ML 1,000 ML IV ONE (18:51)
--- NOTE | 2017-08-30 18:54 | EMERGENCY ROOM VISIT NOTE ---
History Report prepared by Katia: Letitia Luz Under the Supervision of: Dr. Andrea Diaz M.D. First contact with patient: 18:44 Chief Complaint: SYNCOPE Stated Complaint: CRAMPING,PASSED OUT, VOMITING, Nursing Triage Summary: pt reports this am had syncopal episode after waaking this am vomited . does nightly exchanged was cloudy and pink. told to come to ed for eval History of Present Illness The patient is a 31 year old female who presents to the Emergency Room with complaints of a syncopal episode occurring this morning. The patient states she was walking to her kitchen when she started to feel lightheaded and dizzy. She reports she then had a syncopal episode. The patient reports one episode of vomiting this morning. She denies any fever or abdominal pain. Presently, the patient feels lightheaded. The patient is on peritoneal dialysis and reports her nightly exchange from last night is cloudy and pink. She states her nightly exchange is usually clear. The patient states she was referred to come to the ED because of the cloudy drainage. She states she has been eating and drinking normally. The patient notes she has had low blood pressure for the past couple weeks. Source of History: patient Onset: this morning Position: other (generalized) Quality: other (syncopal) Timing: other (episode) Associated Symptoms: + vomiting, No fevers, No abdominal pain Review of Systems See HPI for pertinent positives & negatives. A total of 10 systems reviewed and were otherwise negative. Past Medical & Surgical Medical Problems: (1) Anemia (2) CKD (chronic kidney disease) stage V requiring chronic dialysis (3) Diastolic CHF (4) DM2 (diabetes mellitus, type 2) (5) FSGS (focal segmental glomerulosclerosis) (6) HTN (hypertension) (7) Migraine (8) Peritoneal dialysis catheter in place (9) Pulmonary embolism (10) Renal failure Surgical Problems: (1) H/O knee surgery (2) H/O tubal ligation (3) H/O: (4) Kidney transplant status, living related donor Old medical records were reviewed. Nurse's notes were reviewed and I agree with. Family History Blood clots FATHER BROTHER Crohn's disease FATHER Diabetes mellitus MOTHER Hypertension SISTER Social History Smoking Status: Current Every Day Smoker Alcohol Use: none Drug Use: none Marital Status: in relationship Housing Status: lives with family Occupation Status: employed Current/Historical Medications Scheduled Calcitriol (Calcitriol), 2 CAP PO QAM Calcium Acetate (Phoslo 667 Mg), 3 CAP PO WM Calcium Acetate (Phoslo 667 Mg), 2 CAP PO WITH SNACKS Calcium Carbonate (Tums), 3 TABS PO HS Famotidine (Pepcid), 40 MG PO QAM Furosemide (Lasix), 80 MG PO BID Lorazepam (Ativan), 0.5 MG PO HS Vortioxetine HBr (Trintellix), 5 MG PO QAM Scheduled PRN Albuterol Hfa (Ventolin Hfa), 2 PUFFS INH Q4H PRN for SOB/Wheezing Tramadol HCl (Tramadol HCl), 25-50 MG PO Q6H PRN for Pain Allergies Coded Allergies: Cefaclor (Verified Allergy, Intermediate, Rash, 08/17/17) Reported by PT. Amoxicillin (Verified Adverse Reaction, Mild, VOMITING, 08/17/17) Clavulanic Acid (Verified Adverse Reaction, Mild, VOMITING, 08/17/17) Physical Exam Vital Signs Date Time Temp Pulse Resp B/P (MAP) Pulse Ox O2 Delivery O2 Flow Rate FiO2 08/30/17 18:41 36.3 120 18 84/64 100 Room Air Physical Exam General: Non-ill appearing young female in no acute distress. HEENT: Normal cephalic atraumatic. Pupils are equal round and reactive to light. Extraocular movements are intact. Oropharynx is pink with moist mucous membranes. No swelling of the mouth lips or tongue. Neck: Supple with a midline trachea. No meningeal signs or stiffness, no JVD or bruits. No Stridor. Chest: Clear to auscultation bilaterally. No wheezes or rhonchi. No increased work of breathing. Heart: regular rate and rhythm. Abdomen: Peritoneal dialysis in left lower abdomen, non tender, no redness or drainage. Soft nontender, nondistended without rebound guarding or rigidity. Extremities: No cyanosis clubbing or edema. No calf tenderness or assymetry Spine/Back. Non tender to palpation. No CVA tenderness Skin: Good turgor without rashes. Neurologic exam: Cranial nerves two through 12 are intact. Motor and sensation are intact and symmetrical throughout. Medical Decision & Procedures ER Provider Diagnostic Interpretation: Radiology results as stated below per my review and radiologist interpretation: CHEST ONE VIEW PORTABLE FINDINGS: Lung volumes are at the lower limits of normal. This is unchanged. No pneumothorax or pleural effusion is noted. There is no consolidation or evidence of pulmonary edema. Cardiac size is normal. Mediastinal contours are normal. IMPRESSION: No acute cardiopulmonary findings. Electronically signed by: Sebastian Mcclain M.D. Laboratory Results 08/30/17 20:04 Red Blood Count 3.90, Mean Corpuscular Volume 99.2, Mean Corpuscular Hemoglobin 34.1, Mean Corpuscular Hemoglobin Concent 34.4, Mean Platelet Volume 9.5, Neutrophils (%) (Auto) 84.9, Lymphocytes (%) (Auto) 8.3, Monocytes (%) (Auto) 5.5, Eosinophils (%) (Auto) 0.8, Basophils (%) (Auto) 0.1, Neutrophils # (Auto) 11.41, Lymphocytes # (Auto) 1.11, Monocytes # (Auto) 0.74, Eosinophils # (Auto) 0.11, Basophils # (Auto) 0.02 08/30/17 20:04 Test 08/30/17 18:51 08/30/17 20:04 08/30/17 21:21 08/30/17 21:22 White Blood Count 13.45 K/uL (4.8-10.8) Red Blood Count 3.90 M/uL (4.2-5.4) Hemoglobin 13.3 g/dL (12.0-16.0) Hematocrit 38.7 % (37-47) Mean Corpuscular Volume 99.2 fL (80-100) Mean Corpuscular Hemoglobin 34.1 pg (25-34) Mean Corpuscular Hemoglobin Concent 34.4 g/dl (32-36) Platelet Count 238 K/uL (130-400) Mean Platelet Volume 9.5 fL (7.4-10.4) Neutrophils (%) (Auto) 84.9 % Lymphocytes (%) (Auto) 8.3 % Monocytes (%) (Auto) 5.5 % Eosinophils (%) (Auto) 0.8 % Basophils (%) (Auto) 0.1 % Neutrophils # (Auto) 11.41 K/uL (1.4-6.5) Lymphocytes # (Auto) 1.11 K/uL (1.2-3.4) Monocytes # (Auto) 0.74 K/uL (0.11-0.59) Eosinophils # (Auto) 0.11 K/uL (0-0.5) Basophils # (Auto) 0.02 K/uL (0-0.2) RDW Standard Deviation 55.4 fL (36.4-46.3) RDW Coefficient of Variation 16.2 % (11.5-14.5) Immature Granulocyte % (Auto) 0.4 % Immature Granulocyte # (Auto) 0.06 K/uL (0.00-0.02) Nucleated RBC Absolute Count (auto) 0.08 K/uL (0-0) Nucleated Red Blood Cells % 0.6 % Anion Gap 20.0 mmol/L (3-11) Est Creatinine Clear Calc Drug Dose 5.2 ml/min Estimated GFR () 2.9 Estimated GFR (Non- 2.5 BUN/Creatinine Ratio 3.7 (10-20) Calcium Level 9.5 mg/dl (8.5-10.1) Total Bilirubin 0.5 mg/dl (0.2-1) Direct Bilirubin 0.1 mg/dl (0-0.2) Aspartate Amino Transf (AST/SGOT) 24 U/L (15-37) Alanine Aminotransferase (ALT/SGPT) 47 U/L (12-78) Alkaline Phosphatase 112 U/L (45-117) Total Protein 9.6 gm/dl (6.4-8.2) Albumin 4.1 gm/dl (3.4-5.0) Lipase 252 U/L (73-393) Human Chorionic Gonadotropin, Qual NEG (NEG) Test 08/30/17 21:27 Laboratory studies as stated above per my review. Medications Administered Medications (Trade) Dose Ordered Sig/Sachin Route Start Time Stop Time Status Last Admin Dose Admin Sodium Chloride 1,000 ml @ 999 mls/hr Q1H1M STAT IV 08/30/17 18:51 08/30/17 19:51 DC 08/30/17 20:16 999 MLS/HR Sodium Chloride 1,000 ml @ 150 mls/hr Q6H40M ONCE IV 08/30/17 18:51 08/31/17 01:30 08/30/17 21:35 150 MLS/HR Ondansetron HCl (Zofran Inj) 4 mg NOW STAT IV 08/30/17 20:22 08/30/17 20:24 DC 08/30/17 20:28 4 MG ECG Indication: syncope Rate (beats per minute): 103 Rhythm: sinus tachycardia Findings: no acute ischemic change, other (non specific T-wave abnormality) Comparison ECG Date: 08/17/17 Change: no significant change ED Course 1844: Past medical records reviewed. The patient was evaluated in room B12B, and a complete history and physical examination were performed. 1850: Ordered Sodium Chloride 1000 ml @ 150 mls/hr IV, Sodium Chloride 1000 ml @ 999 mls/hr IV. 2019: On reassessment, the patient reports she is now nauseous. He IV is in place and fluids are running. 2021: Ordered Zofran 4 mg IV. 2099: The patient is resting comfortably. 2105: Discussed the patient's case with Dr. Tirado. The patient will be evaluated for further management. Medical Decision Differential diagnoses include: dehydration, arrhythmia, infection, electrolyte or metabolic abnormality. This patient comes in as described above she's felt dizzy. She was noted to have a low blood pressure and tachycardia. She looks well. her abdomen is completely benign however her peritoneal fluid has been somewhat bloody on exam. She has a bag that looks orangeish but does not look turbulent. IV access established and she was hydrated with IV normal saline. Blood work was obtained including blood cultures. I also did send peritoneal fluid studies including fracture fungal cultures. EKG was obtained. she was reassessed frequently. Her white count is mildly elevated her abdomen is benign. She was given Zofran IV for nausea. She is resting comfortably. She has baseline renal failure but no other electrolyte or metabolic abnormalities. EKG does not suggest significant arrhythmia or ischemic changes. I do think she needs to be observed for further treatment and evaluation and rule out peritoneal infection. I have consulted Dr. Gary to see her in the ER Medication Reconcilliation Current Medication List: was personally reviewed by me Blood Pressure Screening Patient's blood pressure: Low blood pressure Blood pressure disposition: Referred to PCP (will be further evaluated by hospitalist) Consults Time Called: 2099 Consulting Physician: Dr. Tirado Returned Call: 2105 Discussed the patient's case with Dr. Tirado. The patient will be evaluated for further management. Impression Primary Impression: Syncope Additional Impressions: Nausea Dizziness Peritoneal dialysis catheter in place Scribe Attestation The scribe's documentation has been prepared under my direction and personally reviewed by me in its entirety. I confirm that the note above accurately reflects all work, treatment, procedures, and medical decision making performed by me. Departure Information Dispostion Being Evaluated By Hospitalist Referrals Adolph Aldridge M.D. (PCP) Patient Instructions My [facility] Problem Qualifiers
--- NOTE | 2017-08-30 19:20 | DIAGNOSTIC IMAGING REPORT ---
CHEST ONE VIEW PORTABLE CLINICAL HISTORY: Chest pain, syncope and vomiting. COMPARISON STUDY: Chest radiograph August 17, 2017. FINDINGS: Lung volumes are at the lower limits of normal. This is unchanged. No pneumothorax or pleural effusion is noted. There is no consolidation or evidence of pulmonary edema. Cardiac size is normal. Mediastinal contours are normal. IMPRESSION: No acute cardiopulmonary findings. Electronically signed by: Sebastian Mcclain M.D. 08/30/2017 7:18 PM Dictated Date/Time: 08/30/2017 7:18 PM
[2017-08-30 20:22] LABS: BASO % 0.1 %; BASO ABS # 0.02 K/uL (0-0.2); EOS % 0.8 %; EOS ABS # 0.11 K/uL (0-0.5); HEMATOCRIT 38.7 % (37-47); HEMOGLOBIN 13.3 g/dL (12.0-16.0); IG# 0.06 K/uL (0.00-0.02); LYMPH % 8.3 %; LYMPH ABS # 1.11 K/uL (1.2-3.4); MEAN CELL VOLUME 99.2 fL (80-100); MEAN CORPUSCULAR HEMOGLOBIN 34.1 pg (25-34); MEAN CORPUSCULAR HGB CONC 34.4 g/dl (32-36); MEAN PLATELET VOLUME 9.5 fL (7.4-10.4); MONO % 5.5 %; MONO ABS # 0.74 K/uL (0.11-0.59); NEUT % 84.9 %; NEUT ABS # 11.41 K/uL (1.4-6.5); NUCLEATED RED BLOOD CELL ABS 0.08 K/uL (0-0); PLATELET COUNT 238 K/uL (130-400); RED CELL DISTRIBUTION WIDTH CV 16.2 % (11.5-14.5); RED CELL DISTRIBUTION WIDTH SD 55.4 fL (36.4-46.3); WHITE BLOOD COUNT 13.45 K/uL (4.8-10.8)
[2017-08-30] MEDS ORDERED: ONDANSETRON INJ 2 MG/ML 2 ML VIAL IV STA (20:22)
[2017-08-30 20:49] LABS: ALBUMIN 4.1 gm/dl (3.4-5.0); ALKALINE PHOSPHATASE 112 U/L (45-117); ALT/SGPT 47 U/L (12-78); AST/SGOT 24 U/L (15-37); BLOOD UREA NITROGEN 60 mg/dl (7-18); CALCIUM 9.5 mg/dl (8.5-10.1); CARBON DIOXIDE 21 mmol/L (21-32); GLUCOSE 117 mg/dl (70-99); LIPASE 252 U/L (73-393); POTASSIUM 3.5 mmol/L (3.5-5.1); SODIUM 131 mmol/L (136-145); TOTAL PROTEIN 9.6 gm/dl (6.4-8.2)
[2017-08-30 21:45] VITALS: BP 114/66; PULSE 92; TEMP 36.6; O2SAT 99; BMI 28.4
[2017-08-30 22:24] VITALS: O2SAT 99
[2017-08-30] MEDS ORDERED: PROCHLORPERAZINE INJ 5 MG in SYRINGE 4 ML IV PRN (22:30)
[2017-08-30] MEDS ORDERED: GLUCOSE 40% GEL 15 GM TUBE PO PRN (22:30)
[2017-08-30] MEDS ORDERED: CALCIUM ACETATE 667MG GELCAP PO PRN (22:30)
[2017-08-30] MEDS ORDERED: GLUCAGON FOR INJ 1 MG VIAL SQ PRN (22:30)
[2017-08-30] MEDS ORDERED: ACETAMINOPHEN 325 MG TAB PO PRN (22:30)
[2017-08-30] MEDS ORDERED: DEXTROSE 50% 50 ML SYR IV PRN (22:30)
[2017-08-30] MEDS ORDERED: NITROGLYCERIN 0.4 MG SL PER TAB CHARGE SL PRN (22:30)
[2017-08-30] MEDS ORDERED: GLUCOSE 10 TABS/TUBE PO PRN (22:30)
[2017-08-31] VITALS (16 sets, daily range): BP systolic 97–120; BP diastolic 56–78; PULSE 81–106; TEMP 36.3–36.8; O2SAT 96–100; Ht 167.6 cm; Wt 84.9 kg
[2017-08-31] MEDS ORDERED: LORAZEPAM 0.5 MG TAB PO ONE (01:53)
[2017-08-31] MEDS ORDERED: IV FLUIDS COMPLETED PRN (02:00)
[2017-08-31] MEDS ORDERED: LORAZEPAM 0.5 MG TAB ONE (02:04)
--- NOTE | 2017-08-31 02:04 | HISTORY & PHYSICAL EXAMINATION ---
DATE OF ADMISSION: 08/30/2017 PRIMARY CARE PHYSICIAN: Dr. Aldridge. CHIEF COMPLAINT: Syncope. HISTORY OF PRESENT ILLNESS: History obtained from patient and records. Medical history significant for hypertension, ongoing tobacco abuse, end-stage renal disease on PD, history of FSGS status post failed renal transplantation, DM2, diet controlled, history of migraine Recent confinement last July 2017 for pleuritic right sided chest pain. This morning the patient had a witnessed syncopal event. She was unconscious for about 2 seconds. Remembers being dizzy, lightheaded while walking. She remembers being out for about 2 seconds. Denies chest pain or unusual shortness of breath. No tongue biting. No witnessed seizures. No headaches. Peritoneal dialysis exchange fluid noted to have a reddish tinge today. Denies abdominal pain, fever, chills. Patient told by the dialysis nurse to come to the Emergency Room. MEDICAL HISTORY: As above. A 2D echo from March 2017 showed EF of 60-65%, borderline LVH, diastolic dysfunction, trace MR. SURGERIES: She has had vascular procedures, knee surgery, tubal ligation, section, kidney transplant. HOME MEDICATIONS: Include albuterol, calcitriol, calcium acetate, famotidine, furosemide, lorazepam, tramadol, vortioxetine. ALLERGIES: TO AMOXICILLIN, CEFACLOR, CLAVULANIC ACID. FAMILY HISTORY: Diabetes, blood clots. PERSONAL SOCIAL HISTORY: Three cigarettes a day. No chronic intake of alcoholic beverages. Unemployed. REVIEW OF SYSTEMS: As per HPI. All 10 systems reviewed. All other ROS are negative. PHYSICAL EXAMINATION: VITAL SIGNS: Blood pressure was noted to be 80/60 later 114/60, pulse rate 120 , RR 18, T 37, sats 100 on room air. GENERAL: Noted to be comfortable. No respiratory distress. SKIN: Normal color, warm. HEENT: [place], palpebral conjunctivae. No ptosis. Dry buccal mucosa. Multiple papules on her extremities noted. NECK: Short neck, no tenderness. CHEST: Decreased effort. No tenderness. HEART: Regular, rate and rhythm. No murmur. ABDOMEN: Some distention. Nontender. EXTREMITIES: Minimal LE edema, no tenderness. No gross deformity. NEUROLOGIC: Coherent. No gross focality. LABORATORY DATA: Hemoglobin was noted to be 13.3, hematocrit 38.7, white blood cell count 13.45, platelets noted to be 238. Sodium 134, potassium 3.5, chloride 90, CO2 21, BUN 16, creatinine 16.5, glucose 117. LFTs, lipase is normal. Chest x-ray showed no acute cardiovascular findings. EKG as per my interpretation rate 105 sinus tachycardia, T-wave flattening on multiple leads Peritoneal fluid analysis, colorless, cloudy, WBC 11, RBC less than 2000. ASSESSMENT: 1. Syncope, likely secondary to hypotension. 2. Loose stools, chronic, rule out Clostridium difficile. 3. Hypertension, blood pressure on the lower side. 4. red tinged peritoneal dialysis exchange fluid unclear etiology unremarkable fluid analysis. 5. Hx ESRD 2 to FSGS failed renal transplant. 6. Ongoing tobacco abuse. 7. Diet controlled DM2 well controlled as of recent inpatient HgA1c of 5 from last year PLAN: Observation PCU. Monitor BP response to IV fluids given at the ER. Hold parameters for home diuretics Stool C. difficile Nephrology consult RE dialysis management. ISS BG goal 140-180 Patient counseled to stop smoking. DVT prophylaxis, Heparin subQ. Full code. MTDD
[2017-08-31 07:19] LABS: HEMATOCRIT 30.8 % (37-47); HEMOGLOBIN 10.3 g/dL (12.0-16.0); MEAN CORPUSCULAR HEMOGLOBIN 33.1 pg (25-34); MEAN CORPUSCULAR HGB CONC 33.4 g/dl (32-36); MEAN PLATELET VOLUME 9.1 fL (7.4-10.4); PLATELET COUNT 153 K/uL (130-400); RED CELL DISTRIBUTION WIDTH CV 16.3 % (11.5-14.5); WHITE BLOOD COUNT 9.41 K/uL (4.8-10.8)
[2017-08-31 07:31] LABS: CALCIUM 8.6 mg/dl (8.5-10.1); CREATININE 16.3 mg/dl (0.60-1.20); POTASSIUM 3.3 mmol/L (3.5-5.1)
[2017-08-31 07:41] LABS: BASO % 0.5 %; BASO ABS # 0.05 K/uL (0-0.2); EOS % 1.6 %; EOS ABS # 0.15 K/uL (0-0.5); IG# 0.07 K/uL (0.00-0.02); LYMPH % 20.2 %; MONO % 7.5 %; MONO ABS # 0.71 K/uL (0.11-0.59); NEUT % 69.5 %; NEUT ABS # 6.53 K/uL (1.4-6.5)
[2017-08-31] MEDS: CALCIUM ACETATE 667MG GELCAP PO SCH ×3 (07:53→16:20)
[2017-08-31] MEDS: CALCITRIOL 0.25 MCG CAP PO SCH (07:54)
[2017-08-31] MEDS: FAMOTIDINE 20 MG TAB PO SCH (07:54)
[2017-08-31] MEDS: INSULIN ASPART 100 UNITS/ML 3 ML PEN SC SCH ×4 (07:55→21:00)
[2017-08-31] MEDS: FUROSEMIDE 80 MG TAB PO SCH ×2 (07:55→16:21)
--- NOTE | 2017-08-31 15:08 | NEPHROLOGY CONSULTATION ---
DATE OF CONSULTATION: 08/31/2017 REASON FOR CONSULT: Dialysis patient admitted with syncope. HISTORY OF PRESENT ILLNESS: The patient is a 31-year-old female with extensive medical problems including end-stage renal disease on peritoneal dialysis. She has history of focal segmental glomerulosclerosis, status post failed kidney transplant, diabetes as well as other medical problems. She presented to the hospital yesterday after a witnessed syncopal event. She lost consciousness for about a few seconds. This was witnessed by her children. She remembers being dizzy and lightheaded just prior to syncopal episode. Denies any chest pain or shortness of breath, tongue biting, no witnessed seizure, no headache. She noticed slightly reddish, pinkish tinge with the peritoneal dialysis exchanged fluid last night, but it is worth noting that she has had a history of a hemorrhagic ovarian cyst, which has caused significant issues with the bloody peritoneal dialysis fluid. The fluid was analyzed and did not show infection. The culture so far shows negative and there was no bacteria on the Gram stain on the peritoneal dialysis fluid. PAST MEDICAL AND SURGICAL HISTORY: As detailed above. She has also had knee surgery, tubal ligation, and a kidney transplant. HOME MEDICATIONS: List includes albuterol, calcitriol, PhosLo, famotidine, Lasix, lorazepam, and tramadol. ALLERGIES: CEFACLOR, CLAVULANIC ACID. FAMILY HISTORY: Diabetes and blood clot. PERSONAL AND SOCIAL HISTORY: She smokes and is unemployed. She has children living in her family and no alcohol. REVIEW OF SYSTEMS: Twelve systems reviewed and is negative. PHYSICAL EXAMINATION: GENERAL: Young white female who is not in any distress at this time. VITAL SIGNS: Her blood pressure at the time of admission was low at 84/64, 100% on room air. Most recent vital signs show a temperature of 36.3, pulse rate 81 per minute, blood pressure 120/78, 98% on room air. HEENT: Mucous membrane is moist. NECK: Supple. No jugular venous distention. CHEST: Clear to auscultation. CARDIOVASCULAR: S1 and S2, regular. ABDOMEN: Soft, nontender. EXTREMITIES: Shows no edema. NEUROLOGIC: Awake, alert, and oriented x3. Normal speech. IMAGING: Chest x-ray shows no acute findings. LABORATORY TESTS: Showed a hemoglobin of 10.3 this morning. Platelet count 153, WBC count 9.41. BUN 62, creatinine 16.3, sodium 132, potassium 3.3, chloride 94, carbon dioxide 20. Peritoneal dialysis fluid has been analyzed. It has about 3000 RBCs, but only 11 WBCs. Culture and Gram stain of the PD fluid was negative. ASSESSMENT AND PLAN: 1. End-stage renal disease on chronic peritoneal dialysis. 2. Syncope, most likely related with hypotension. Even at the time of admission, she had a blood pressure of only 82 systolic. It is quite possible that hypotension is related with dialysis; given this, for tonight, we will do 1.5% solution. It will be a 12-hour session of peritoneal dialysis on a cycler with 1.5% solution, most likely, there will be very little net ultrafiltration. Her blood pressure has already improved, so I do not think we need to give her IV fluid. She has no residual renal function, so giving IV fluid could be a problem. She has also had some diarrhea, so it is reasonable to rule out for C. diff infection. 3. The blood-tinged peritoneal dialysis fluid, I do not think this is of any major significance. She has had significantly worse bloody peritoneal dialysis in the past related with ovarian cyst. Thank you very much for the consult. MATTHEW
[2017-08-31] MEDS: HEPARIN SOD 5000 UNIT/0.5 ML CARP SQ SCH ×2 (16:23→21:23)
--- NOTE | 2017-08-31 19:35 | Progress Note ---
Internal Med Progress Note Date of Service: Aug 31, 2017. Provider Documentation: SUBJECTIVE: resting comfortably hemodynamics stable' no nausea afebrile still has diarrhea tolerating diet OBJECTIVE: Vital Signs-as noted below Exam: General-alert and oriented. Not in distress ENT-Normal hearing Neck-no neck masses supple Lungs-cta b/l no wheezing no crackles present Heart-S1 and S2 heard regular rate and rthym, no murmurs Abdomen-Soft bowel sounds present non tender no distension Extremities- no edema no erythema Neuro-alert and awake moves extremities Lab data as noted below. ASSESSMENT & PLAN: 1. Syncope, likely secondary to hypotension. from Loose stools, chronic,Await Clostridium difficile studies. Currently BP improved stable. 2. Hypertension, blood pressure on the lower side.Improved.Will monitor 4. red tinged peritoneal dialysis exchange fluid unremarkable fluid analysis.Possible from ovarian cyst as per nephrology. 5. Hx ESRD 2 to FSGS failed renal transplant.on PD. Appreciate nephrology inputs. 6. Ongoing tobacco abuse. 7. Diet controlled DM2 well controlled as of recent inpatient HgA1c of 5 from last year DVT PROPHYLAXIS hep sub q- refused DISPOSITION to be determined Vital Signs: Date Time Temp Pulse Resp B/P (MAP) Pulse Ox O2 Delivery O2 Flow Rate FiO2 08/31/17 17:00 92 13 08/31/17 16:15 Room Air 08/31/17 16:15 106 14 112/70 (84) Room Air 08/31/17 16:14 100 110/75 (87) 08/31/17 16:14 36.6 88 14 108/66 (80) 96 Room Air 08/31/17 15:00 90 11 08/31/17 13:00 97 13 08/31/17 12:10 Room Air 08/31/17 11:00 99 16 08/31/17 10:01 93 13 112/69 (83) 97 Room Air 08/31/17 09:01 88 13 106/68 (81) 96 08/31/17 09:00 91 13 96 Room Air 08/31/17 08:01 86 13 107/56 (73) 97 08/31/17 07:47 36.6 100 11 103/64 (77) 97 Room Air 08/31/17 07:30 Room Air 08/31/17 07:00 88 15 08/31/17 04:00 Room Air 08/31/17 04:00 36.3 81 22 120/78 (92) 98 CPAP 08/31/17 03:53 36.8 96 12 97/66 (76) 98 Room Air 08/30/17 22:24 80 20 100/83 99 Room Air 08/30/17 21:45 36.6 92 20 114/66 99 Room Air Lab Results: Results Past 24 Hours Test 08/30/17 20:04 08/31/17 06:13 08/31/17 06:32 08/31/17 11:15 Range/Units White Blood Count 13.45 9.41 4.8-10.8 K/uL Red Blood Count 3.90 3.11 4.2-5.4 M/uL Hemoglobin 13.3 10.3 12.0-16.0 g/dL Hematocrit 38.7 30.8 37-47 % Mean Corpuscular Volume 99.2 99.0 80-100 fL Mean Corpuscular Hemoglobin 34.1 33.1 25-34 pg Mean Corpuscular Hemoglobin Concent 34.4 33.4 32-36 g/dl Platelet Count 238 153 130-400 K/uL Mean Platelet Volume 9.5 9.1 7.4-10.4 fL Neutrophils (%) (Auto) 84.9 69.5 % Lymphocytes (%) (Auto) 8.3 20.2 % Monocytes (%) (Auto) 5.5 7.5 % Eosinophils (%) (Auto) 0.8 1.6 % Basophils (%) (Auto) 0.1 0.5 % Neutrophils # (Auto) 11.41 6.53 1.4-6.5 K/uL Lymphocytes # (Auto) 1.11 1.90 1.2-3.4 K/uL Monocytes # (Auto) 0.74 0.71 0.11-0.59 K/uL Eosinophils # (Auto) 0.11 0.15 0-0.5 K/uL Basophils # (Auto) 0.02 0.05 0-0.2 K/uL RDW Standard Deviation 55.4 55.0 36.4-46.3 fL RDW Coefficient of Variation 16.2 16.3 11.5-14.5 % Immature Granulocyte % (Auto) 0.4 0.7 % Immature Granulocyte # (Auto) 0.06 0.07 0.00-0.02 K/uL Nucleated RBC Absolute Count (auto) 0.08 0-0 K/uL Nucleated Red Blood Cells % 0.6 % Activated Partial Thromboplast Time 25.0 21.0-31.0 SECONDS Partial Thromboplastin Ratio 1.0 Sodium Level 131 132 136-145 mmol/L Potassium Level 3.5 3.3 3.5-5.1 mmol/L Chloride Level 90 94 98-107 mmol/L Carbon Dioxide Level 21 20 21-32 mmol/L Anion Gap 20.0 18.0 3-11 mmol/L Blood Urea Nitrogen 60 62 7-18 mg/dl Creatinine 16.50 16.30 0.60-1.20 mg/dl Est Creatinine Clear Calc Drug Dose 5.2 5.3 ml/min Estimated GFR () 2.9 3.0 Estimated GFR (Non- 2.5 2.6 BUN/Creatinine Ratio 3.7 3.8 10-20 Random Glucose 117 86 70-99 mg/dl Calcium Level 9.5 8.6 8.5-10.1 mg/dl Magnesium Level 2.7 1.8-2.4 mg/dl Total Bilirubin 0.5 0.2-1 mg/dl Direct Bilirubin 0.1 0-0.2 mg/dl Aspartate Amino Transf (AST/SGOT) 24 15-37 U/L Alanine Aminotransferase (ALT/SGPT) 47 12-78 U/L Alkaline Phosphatase 112 45-117 U/L Troponin I < 0.015 0-0.045 ng/ml Total Protein 9.6 6.4-8.2 gm/dl Albumin 4.1 3.4-5.0 gm/dl Lipase 252 73-393 U/L Procalcitonin 0.50 0-0.5 ng/ml Human Chorionic Gonadotropin, Qual NEG NEG Bedside Glucose 96 122 70-90 mg/dl Lactic Acid Level 1.1 0.4-2.0 mmol/L Test 08/31/17 16:12 08/31/17 18:30 Range/Units Bedside Glucose 122 70-90 mg/dl Stool Occult Blood NEGATIVE NEGATIVE Microbiology Results 08/30/17 Blood Culture, Received Pending 08/30/17 Blood Culture, Received Pending 08/30/17 MRSA DNA Surveillance Screen - Final, Complete Specimen Negative for MRSA by DNA Probe 08/31/17 Shiga Toxin Test, Received Pending 08/31/17 Stool Culture, Received Pending 08/31/17 C.difficile Toxin B Gene (PCR), Received Pending
[2017-08-31] MEDS: LORAZEPAM 0.5 MG TAB PO SCH (21:21)
[2017-08-31] MEDS: TRAMADOL HCL 50 MG TAB PO PRN (21:22)
[2017-08-31] MEDS: CALCIUM CARBONATE 500 MG CHEWABLE PO SCH (21:22)
[2017-08-31] MEDS ORDERED: TRAMADOL HCL 50 MG TAB PO ONE (23:38)
[2017-09-01] VITALS (9 sets, daily range): BP systolic 100–122; BP diastolic 69–80; PULSE 72–108; TEMP 36–37.1; O2SAT 97–100
[2017-09-01] MEDS: HEPARIN SOD 5000 UNIT/0.5 ML CARP SQ SCH ×3 (04:25→20:08)
[2017-09-01] MEDS: TRAMADOL HCL 50 MG TAB PO PRN (05:39)
[2017-09-01] MEDS: INSULIN ASPART 100 UNITS/ML 3 ML PEN SC SCH ×4 (07:00→20:07)
[2017-09-01] MEDS: FAMOTIDINE 20 MG TAB PO SCH (07:57)
[2017-09-01] MEDS: CALCITRIOL 0.25 MCG CAP PO SCH (07:57)
[2017-09-01] MEDS: FUROSEMIDE 80 MG TAB PO SCH ×2 (07:57→16:31)
[2017-09-01] MEDS: CALCIUM ACETATE 667MG GELCAP PO SCH ×3 (07:57→16:31)
[2017-09-01 07:58] LABS: CALCIUM 8.4 mg/dl (8.5-10.1); CREATININE 16.1 mg/dl (0.60-1.20); POTASSIUM 2.5 mmol/L (3.5-5.1)
[2017-09-01] MEDS ORDERED: POTASSIUM CHLORIDE 20 MEQ TABCR PO ONE (08:30)
--- NOTE | 2017-09-01 10:02 | Progress Note ---
Internal Med Progress Note Date of Service: Sep 01, 2017. Provider Documentation: SUBJECTIVE: resting comfortably diarrhea resolved eating ok no nausea or abdominal pain afebrile OBJECTIVE: Vital Signs-as noted below Exam: General-alert and oriented. Not in distress ENT-Normal hearing Neck-no neck masses supple Lungs-cta b/l no wheezing no crackles present Heart-S1 and S2 heard regular rate and rthym, no murmurs Abdomen-Soft bowel sounds present non tender no distension Extremities- no edema no erythema Neuro-alert and awake moves extremities Lab data as noted below. ASSESSMENT & PLAN: 1. Syncope, likely secondary to hypotension. from Diarrhea, chronic, c diff negative sttol cx pending Currently BP improved stable. 2. hypokalemia mostly from diarrhea k 2.5 today will replace f/u labs 3. Hypertension, blood pressure on the lower side.Improved.Will monitor 4. red tinged peritoneal dialysis exchange fluid unremarkable fluid analysis.Possible from ovarian cyst as per nephrology. 5. Hx ESRD 2 to FSGS failed renal transplant.on PD. Appreciate nephrology inputs. 6. Ongoing tobacco abuse. 7. Diet controlled DM2 well controlled as of recent inpatient HgA1c of 5 from last year DVT PROPHYLAXIS hep sub q- refused DISPOSITION possible d/c in am if stable ambulate Vital Signs: Date Time Temp Pulse Resp B/P (MAP) Pulse Ox O2 Delivery O2 Flow Rate FiO2 09/01/17 08:02 Room Air 09/01/17 07:42 36.9 76 16 107/71 (83) 97 Room Air 09/01/17 04:00 Room Air 09/01/17 03:37 36.0 76 16 100/ (33) 97 Room Air 09/01/17 00:53 36.8 90 16 115/76 (89) 100 Room Air 09/01/17 00:00 Room Air 08/31/17 20:34 36.6 83 108/67 (81) 08/31/17 20:00 Room Air 08/31/17 19:56 36.6 83 18 108/67 (81) 100 Room Air 08/31/17 17:00 92 13 08/31/17 16:15 Room Air 08/31/17 16:15 106 14 112/70 (84) Room Air 08/31/17 16:14 100 110/75 (87) 08/31/17 16:14 36.6 88 14 108/66 (80) 96 Room Air 08/31/17 15:00 90 11 08/31/17 13:00 97 13 08/31/17 12:10 Room Air 08/31/17 11:00 99 16 08/31/17 10:01 93 13 112/69 (83) 97 Room Air Lab Results: Results Past 24 Hours Test 08/31/17 11:15 08/31/17 16:12 08/31/17 18:30 08/31/17 20:46 Range/Units Bedside Glucose 122 122 112 70-90 mg/dl Stool Occult Blood NEGATIVE NEGATIVE Test 09/01/17 06:13 09/01/17 06:52 Range/Units Sodium Level 131 136-145 mmol/L Potassium Level 2.5 3.5-5.1 mmol/L Chloride Level 93 98-107 mmol/L Carbon Dioxide Level 23 21-32 mmol/L Anion Gap 16.0 3-11 mmol/L Blood Urea Nitrogen 65 7-18 mg/dl Creatinine 16.10 0.60-1.20 mg/dl Est Creatinine Clear Calc Drug Dose 5.5 ml/min Estimated GFR () 3.0 Estimated GFR (Non- 2.6 BUN/Creatinine Ratio 4.0 10-20 Random Glucose 113 70-99 mg/dl Calcium Level 8.4 8.5-10.1 mg/dl Bedside Glucose 131 70-90 mg/dl Microbiology Results 08/31/17 Shiga Toxin Test, Received Pending 08/31/17 Stool Culture, Received Pending 08/31/17 C.difficile Toxin B Gene (PCR) - Final, Complete No C. difficile toxin B gene detected
[2017-09-01] MEDS ORDERED: TRAMADOL HCL 50 MG TAB PO ONE (19:43)
[2017-09-01] MEDS ORDERED: LORAZEPAM 1 MG TAB PO ONE (19:43)
[2017-09-01] MEDS: CALCIUM CARBONATE 500 MG CHEWABLE PO SCH (20:19)
[2017-09-01] MEDS: LORAZEPAM 0.5 MG TAB PO SCH (20:27)
[2017-09-02] MEDS: TRAMADOL HCL 50 MG TAB PO PRN ×2 (00:01→06:50)
[2017-09-02 04:02] VITALS: BP 113/76; PULSE 87; TEMP 36.6; O2SAT 97
[2017-09-02] MEDS: HEPARIN SOD 5000 UNIT/0.5 ML CARP SQ SCH (05:30)
[2017-09-02] MEDS: INSULIN ASPART 100 UNITS/ML 3 ML PEN SC SCH (07:00)
[2017-09-02 07:43] VITALS: BP 118/79; PULSE 85; TEMP 36.9; O2SAT 99
[2017-09-02 07:47] LABS: CALCIUM 9.1 mg/dl (8.5-10.1); CREATININE 15.1 mg/dl (0.60-1.20)
[2017-09-02 08:00] VITALS: BP_SYST 118; BP_SYST 122; BP_DIAS 79; PULSE 76; PULSE 89; TEMP 36.9
--- NOTE | 2017-09-02 08:27 | Nephrology Progress Note ---
Nephrology Progress Note Date of Service: Sep 02, 2017. Subjective 31 yo female with esrd on pd who has had poor clearances and questionable compliance as an outpt in terms of follow up appointments. pts urination has decreased to none. pts bp is good and off bp medications. now on yellows. have added an additional last fill and 6pm manual exchange as an outpt to help with clearances. pt does feel better. has been dealing with a rash on arms and legs. Objective Date Time Temp Pulse Resp B/P (MAP) Pulse Ox O2 Delivery O2 Flow Rate FiO2 09/02/17 07:43 36.9 85 20 118/79 (92) 99 Room Air 09/02/17 04:02 36.6 87 16 113/76 (88) 97 Room Air 09/02/17 04:00 Room Air 09/02/17 00:00 Room Air 09/01/17 23:50 36.7 84 18 116/78 (91) 97 Room Air 09/01/17 20:00 Room Air 09/01/17 19:30 37.1 80 18 118/80 (93) 100 Room Air 09/01/17 18:59 36.9 89 122/79 (93) 09/01/17 16:03 Room Air 09/01/17 15:56 37.0 108 18 116/74 (88) 98 Room Air 09/01/17 13:30 36.9 76 16 107/71 (83) 09/01/17 12:36 36.6 72 20 105/69 (81) 98 Room Air 09/01/17 12:05 Room Air Physical Exam: General-aaox3 Eyes-no sceral icterus ENT-mmm Neck-supple Lungs-cta Heart-rrr Abdomen-bs+ s/nt/nd, +pd catheter Extremities-no c/c/e Neuro-nonfocal Current Inpatient Medications Medications (Trade) Dose Ordered Sig/Sachin Route Start Time Stop Time Status Last Admin Dose Admin Tramadol HCl (Ultram Tab) pain not relieved by tyle... Q6H PRN PO 08/30/17 21:30 09/29/17 21:29 09/02/17 06:50 50 MG Calcium Acetate (Phoslo Cap) 1,334 mg UD PRN PO 08/30/17 22:30 09/29/17 22:29 Calcium Acetate (Phoslo Cap) 2,001 mg TIDM PO 08/31/17 07:15 09/30/17 07:14 09/01/17 16:31 2,001 MG Calcium Carbonate (Tums Chew Tab) 1,500 mg HS PO 08/31/17 21:00 09/30/17 20:59 09/01/17 20:19 1,500 MG Famotidine (Pepcid Tab) 40 mg QAM PO 08/31/17 09:00 09/30/17 08:59 09/01/17 07:57 40 MG Furosemide (Lasix Tab) 80 mg BID17 PO 08/31/17 09:00 09/30/17 08:59 09/01/17 16:31 80 MG Lorazepam (Ativan Tab) 0.5 mg HS PO 08/31/17 21:00 09/30/17 20:59 08/31/17 21:21 0.5 MG Calcitriol (Rocaltrol Cap) 1 mcg QAM PO 08/31/17 09:00 09/30/17 08:59 09/01/17 07:57 1 MCG Miscellaneous Information (Order Awaiting Action) 1 ea QS N/A 08/31/17 08:00 09/30/17 07:59 09/01/17 20:09 1 EA Prochlorperazine Edisylate 5 mg/ Syringe 5 ml @ 5 mls/min Q6H PRN IV 08/30/17 22:30 09/29/17 22:29 Acetaminophen (Tylenol Tab) 650 mg Q4H PRN PO 08/30/17 22:30 09/29/17 22:29 08/31/17 17:42 650 MG Nitroglycerin (Nitrostat Tab) 0.4 mg UD PRN SL 08/30/17 22:30 09/29/17 22:29 Insulin Aspart (novoLOG ASPART) SLIDING SCALE If C... ACHS SC 08/31/17 06:45 09/30/17 06:59 Glucose (Glucose 40% Gel) 15-30 GRAMS 15 GRAMS... UD PRN PO 08/30/17 22:30 09/29/17 22:29 Glucose (Glucose Chew Tab) 4-8 Tablets 4 Tabl... UD PRN PO 08/30/17 22:30 09/29/17 22:29 Dextrose (Dextrose 50% 50ML Syringe) 25-50ML OF 50% DW IV FOR... UD PRN IV 08/30/17 22:30 09/29/17 22:29 Glucagon (Glucagon Inj) 1 mg UD PRN SQ 08/30/17 22:30 09/29/17 22:29 Heparin Sodium (Porcine) (Heparin Sq 5000 Unit/0.5ml) 5,000 unit Q8 SQ 08/31/17 14:00 09/30/17 13:59 Miscellaneous (Iv Fluids Completed) 1 ea PRN PRN N/A 08/31/17 02:00 08/31/18 01:59 Last 24 Hours Test 09/01/17 11:14 09/01/17 16:20 09/01/17 19:54 09/02/17 06:24 Bedside Glucose 79 mg/dl 104 mg/dl 132 mg/dl Sodium Level 131 mmol/L Potassium Level 3.0 mmol/L Chloride Level 94 mmol/L Carbon Dioxide Level 23 mmol/L Anion Gap 14.0 mmol/L Blood Urea Nitrogen 57 mg/dl Creatinine 15.10 mg/dl Est Creatinine Clear Calc Drug Dose 5.9 ml/min Estimated GFR () 3.3 Estimated GFR (Non- 2.8 BUN/Creatinine Ratio 3.8 Random Glucose 123 mg/dl Calcium Level 9.1 mg/dl Test 09/02/17 06:39 Bedside Glucose 130 mg/dl Assessment & Plan ESRD-on pd-poor clearances and have increased her exchanges. will give her a last fill today of 2 liters. hypokalemia-potassium better at 3. to start 20meq of kdur daily. Anemia of Renal Failure-hg goal of 10 to 11, will redose procrit again today. ok from renal perspective to go home once medically cleared.
[2017-09-02] MEDS: CALCIUM ACETATE 667MG GELCAP PO SCH (08:28)
[2017-09-02] MEDS: CALCITRIOL 0.25 MCG CAP PO SCH (08:28)
[2017-09-02] MEDS: FUROSEMIDE 80 MG TAB PO SCH (08:29)
[2017-09-02] MEDS: FAMOTIDINE 20 MG TAB PO SCH (08:29)
[2017-09-02] MEDS ORDERED: EPOETIN ALFA 10,000 UNITS/ML VIAL SQ SCH (09:00)
[2017-09-02] MEDS ORDERED: POTASSIUM CHLORIDE 10 MEQ TABCR PO SCH (09:00)
[2017-09-02] MEDS ORDERED: NURSING VERBAL MED ORDER ONE (09:00)
[2017-09-02] MEDS ORDERED: POTASSIUM CHLORIDE 20 MEQ TABCR PO STA (09:11)
[2017-09-02] MEDS ORDERED: POTASSIUM CHLORIDE PWD 20 MEQ PACK PO SCH (09:30)
[2017-09-02] MEDS ORDERED: MCRK20 PO (10:08)
[2017-09-02] MEDS ORDERED: LORA-741 PO (10:08)
--- NOTE | 2017-09-02 10:10 | Discharge Instructions ---
Discharge Instructions Date of Service Sep 02, 2017. Admission Reason for Admission: Syncope Discharge Discharge Diagnosis / Problem: syncope, diarrhea Discharge Goals Goal(s): Decrease discomfort, Improve function Activity Recommendations Activity Limitations: resume your previous activity . Instructions / Follow-Up Instructions / Follow-Up FOLLOWUP WITH FAMILY DOCTOR ON Aug AT 10:45AM FOLLOWUP WITH NEPHROLOGY SCHEDULED. LAB: BMP IN ONE WEEK AND FOLLOW RESULTS WITH FAMILY DOCTOR AND NEPHROLOGY Current Hospital Diet Patient's current hospital diet: Regular Diet, Renal Diet Discharge Diet Recommended Diet: Regular Diet, Renal Diet Pending Studies Studies pending at discharge: no Medical Emergencies . Who to Call and When: Medical Emergencies: If at any time you feel your situation is an emergency, please call 911 immediately. . Non-Emergent Contact Non-Emergency issues call your: Primary Care Provider . . "Provider Documentation" section prepared by Daquan Morgan. . VTE Core Measure Inpt VTE Proph given/why not?: Unfractionated heparin SQ (REFUSED)
[2017-09-02 10:27] VITALS: BP 118/79; PULSE 85; TEMP 36.9; O2SAT 99
--- NOTE | 2017-09-02 18:15 | Progress Note ---
Internal Med Progress Note Date of Service: Sep 02, 2017. Provider Documentation: SUBJECTIVE: resting comfortably no nausea or abdominal pain no diarrhea afebrile ok to go home OBJECTIVE: Vital Signs-as noted below Exam: General-alert and oriented. Not in distress ENT-Normal hearing Neck-no neck masses supple Lungs-cta b/l no wheezing no crackles present Heart-S1 and S2 heard regular rate and rthym, no murmurs Abdomen-Soft bowel sounds present non tender no distension Extremities- no edema no erythema Neuro-alert and awake moves extremities Lab data as noted below. ASSESSMENT & PLAN: 1. Syncope, likely secondary to hypotension. from Diarrhea, chronic, c diff negative stool cx unremarkable Currently BP improved stable. 2. hypokalemia mostly from diarrhea k 2.5 09/01/17 will replace kcl supplement added by nephrology f/u labs 3. Hypertension, blood pressure on the lower side.Improved.Will monitor 4. red tinged peritoneal dialysis exchange fluid unremarkable fluid analysis.Possible from ovarian cyst as per nephrology. 5. Hx ESRD 2 to FSGS failed renal transplant.on PD. Appreciate nephrology inputs. 6. Ongoing tobacco abuse. 7. Diet controlled DM2 well controlled as of recent inpatient HgA1c of 5 from last year discharged home Vital Signs: Date Time Temp Pulse Resp B/P (MAP) Pulse Ox O2 Delivery O2 Flow Rate FiO2 09/02/17 10:27 36.9 85 20 99 Room Air 09/02/17 08:00 Room Air 09/02/17 07:43 36.9 85 20 118/79 (92) 99 Room Air 09/02/17 04:02 36.6 87 16 113/76 (88) 97 Room Air 09/02/17 04:00 Room Air 09/02/17 00:00 Room Air 09/01/17 23:50 36.7 84 18 116/78 (91) 97 Room Air 09/01/17 20:00 Room Air 09/01/17 19:30 37.1 80 18 118/80 (93) 100 Room Air 09/01/17 18:59 36.9 89 122/79 (93) Lab Results: Results Past 24 Hours Test 09/01/17 19:54 09/02/17 06:24 09/02/17 06:39 Range/Units Bedside Glucose 132 130 70-90 mg/dl Sodium Level 131 136-145 mmol/L Potassium Level 3.0 3.5-5.1 mmol/L Chloride Level 94 98-107 mmol/L Carbon Dioxide Level 23 21-32 mmol/L Anion Gap 14.0 3-11 mmol/L Blood Urea Nitrogen 57 7-18 mg/dl Creatinine 15.10 0.60-1.20 mg/dl Est Creatinine Clear Calc Drug Dose 5.9 ml/min Estimated GFR () 3.3 Estimated GFR (Non- 2.8 BUN/Creatinine Ratio 3.8 10-20 Random Glucose 123 70-99 mg/dl Calcium Level 9.1 8.5-10.1 mg/dl
--- NOTE | 2017-09-02 18:33 | Discharge Summary ---
Discharge Summary Date of Service Sep 02, 2017. Discharge Summary Admission Date: Aug 30, 2017 at 21:40 Discharge Date: Sep 02, 2017 Discharge Disposition: Home Principal Diagnosis: SYNCOPE Secondary Diagnoses/Problems: hypertension, ongoing tobacco abuse, end-stage renal disease on PD, history of FSGS status post failed renal transplantation, DM2, diet controlled, history of migraine Procedures: CXR: No acute cardiopulmonary findings. Consultations: NEPHROLOGY Medication Reconciliation New Medications: Potassium Chloride (Klor-Con M20) 20 Meq Tabcr 20 MEQ PO DAILY, #30 1 Refill Continued Medications: Albuterol Hfa (Ventolin Hfa) 200 Puffs/[id number] Mcg Aers 2 PUFFS INH Q4H PRN for SOB/Wheezing, INHALER Calcitriol (Calcitriol) 0.5 Mcg Cap 2 CAP PO QAM Calcium Acetate (Phoslo 667 Mg) 667 Mg Cap 3 CAP PO WM Calcium Acetate (Phoslo 667 Mg) 667 Mg Cap 2 CAP PO WITH SNACKS, CAP TAKE 2 CAPSULES WITH SNACKS Calcium Carbonate (Tums) 500 Mg Chew 3 TABS PO HS Famotidine (Pepcid) 40 Mg Tab 40 MG PO QAM, TAB Furosemide (Lasix) 80 Mg Tab 80 MG PO BID, TAB Lorazepam (Ativan) 0.5 Mg Tab 0.5 MG PO HS, #10 TAB (This prescription has been renewed) Tramadol HCl (Tramadol HCl) 50 Mg Tab 25-50 MG PO Q6H PRN for Pain for 7 Days, #20 TAB Vortioxetine HBr (Trintellix) 5 Mg Tab 5 MG PO QAM Admission Information HPI (per Admitting provider): History obtained from patient and records. Medical history significant for hypertension, ongoing tobacco abuse, end-stage renal disease on PD, history of FSGS status post failed renal transplantation, DM2, diet controlled, history of migraine Recent confinement last July 2017 for pleuritic right sided chest pain. This morning the patient had a witnessed syncopal event. She was unconscious for about 2 seconds. Remembers being dizzy, lightheaded while walking. She remembers being out for about 2 seconds. Denies chest pain or unusual shortness of breath. No tongue biting. No witnessed seizures. No headaches. Peritoneal dialysis exchange fluid noted to have a reddish tinge today. Denies abdominal pain, fever, chills. Patient told by the dialysis nurse to come to the Emergency Room. Physical Exam (per Admitting): VITAL SIGNS: Blood pressure was noted to be 80/60 later 114/60, pulse rate 120 , RR 18, T 37, sats 100 on room air. GENERAL: Noted to be comfortable. No respiratory distress. SKIN: Normal color, warm. HEENT: [place], palpebral conjunctivae. No ptosis. Dry buccal mucosa. Multiple papules on her extremities noted. NECK: Short neck, no tenderness. CHEST: Decreased effort. No tenderness. HEART: Regular, rate and rhythm. No murmur. ABDOMEN: Some distention. Nontender. EXTREMITIES: Minimal LE edema, no tenderness. No gross deformity. NEUROLOGIC: Coherent. No gross focality Hospital Course 1. Syncope, likely secondary to hypotension. from Diarrhea, chronic, c diff negative stool cx unremarkable Currently BP improved stable. 2. hypokalemia mostly from diarrhea k 2.5 09/01/17 will replace kcl supplement added by nephrology f/u labs 3. Hypertension, blood pressure on the lower side.Improved.Will monitor 4. red tinged peritoneal dialysis exchange fluid unremarkable fluid analysis.Possible from ovarian cyst as per nephrology. 5. Hx ESRD 2 to FSGS failed renal transplant.on PD. Appreciate nephrology inputs. 6. Ongoing tobacco abuse. 7. Diet controlled DM2 well controlled as of recent inpatient HgA1c of 5 from last year discharged home Total time spent on discharge = 35MINUTES This includes examination of the patient, discharge planning, medication reconciliation, and communication with other providers. Discharge Instructions Discharge Instructions Date of Service Sep 02, 2017. Admission Reason for Admission: Syncope Discharge Discharge Diagnosis / Problem: syncope, diarrhea Discharge Goals Goal(s): Decrease discomfort, Improve function Activity Recommendations Activity Limitations: resume your previous activity . Instructions / Follow-Up Instructions / Follow-Up FOLLOWUP WITH FAMILY DOCTOR ON Aug AT 10:45AM FOLLOWUP WITH NEPHROLOGY SCHEDULED. LAB: BMP IN ONE WEEK AND FOLLOW RESULTS WITH FAMILY DOCTOR AND NEPHROLOGY Current Hospital Diet Patient's current hospital diet: Regular Diet, Renal Diet Discharge Diet Recommended Diet: Regular Diet, Renal Diet Pending Studies Studies pending at discharge: no Medical Emergencies . Who to Call and When: Medical Emergencies: If at any time you feel your situation is an emergency, please call 911 immediately. . Non-Emergent Contact Non-Emergency issues call your: Primary Care Provider . . "Provider Documentation" section prepared by Daquan Morgan. . VTE Core Measure Inpt VTE Proph given/why not?: Unfractionated heparin SQ (REFUSED)
[2017-09-03 08:00] VITALS: BP 122/79; PULSE 89; TEMP 36.9
== END 2017-09-02 10:52 | disposition home or self-care (01) ==
LOC: C.EDB 18:38 → C.MSICU 21:40 → ENRESERV 21:57 → C.2T 08-31 18:46
PROVIDERS: ADMIT Internal Medicine; ATTEND Internal Medicine
DX: R55 Syncope and collapse (principal); E87.6 Hypokalemia; E11.22 Type 2 diabetes mellitus with diabetic chronic kidney disease; I13.2 Hypertensive heart and chronic kidney disease with heart failure and with stage 5 chronic kidney disease, or end stage renal disease; N18.5 Chronic kidney disease, stage 5; I50.30 Unspecified diastolic (congestive) heart failure; Z99.2 Dependence on renal dialysis; N26.9 Renal sclerosis, unspecified; G43.909 Migraine, unspecified, not intractable, without status migrainosus; D64.9 Anemia, unspecified; F17.200 Nicotine dependence, unspecified, uncomplicated; Z86.711 Personal history of pulmonary embolism; Z79.899 Other long term (current) drug therapy

== ENCOUNTER 2017-09-06 14:57 | Emergency (ER) | payer OTHER ==
[~2017-09-06] VITALS: Ht 167.6 cm; Wt 81.6 kg
[~2017-09-06 14:57] MED LIST changes: +MCRK20 PO
[2017-09-06 15:03] VITALS: TEMP 36.8; Ht 167.6 cm; Wt 81.6 kg
[2017-09-06] MEDS ORDERED: ATV5X PO (16:00)
[2017-09-06] MEDS ORDERED: ULT50 PO (16:00)
[2017-09-06] MEDS ORDERED: IMT50 PO (16:00)
[2017-09-06] MEDS ORDERED: POTA20TA13 PO (16:00)
[2017-09-06 16:29] LABS: HEMATOCRIT 34.1 % (37-47); HEMOGLOBIN 11.5 g/dL (12.0-16.0); MEAN CELL VOLUME 99.7 fL (80-100); MEAN CORPUSCULAR HEMOGLOBIN 33.6 pg (25-34); MEAN CORPUSCULAR HGB CONC 33.7 g/dl (32-36); PLATELET COUNT 174 K/uL (130-400); RED CELL DISTRIBUTION WIDTH CV 16.8 % (11.5-14.5); RED CELL DISTRIBUTION WIDTH SD 59.1 fL (36.4-46.3); WHITE BLOOD COUNT 10.52 K/uL (4.8-10.8)
--- NOTE | 2017-09-06 16:29 | EMERGENCY ROOM VISIT NOTE ---
History Report prepared by Katia: Shiva Issa Under the Supervision of: Dr. Baljit Lewis D.O. First contact with patient: 15:26 Chief Complaint: RECTAL BLEEDING Stated Complaint: ABDOMINAL PAIN, SICK IN STOMACH AND BLOOD IN STOOL History of Present Illness The patient is a 31 year old female who presents to the Emergency Room with complaints of persistent rectal bleeding for three days [employer]ISH LANGUAGE [employer]ER. She notes the stools are watery, stringy, and copper in color. She has had diarrhea for over a week. She states that it is really sore when she goes to the bathroom. She notes that she has six episodes of diarrhea a day. She notes abdominal cramping and weakness. She currently rates his pain a 7/10 in severity. She has chronic kidney failure. She receives peritoneal dialysis daily. She notes that she does not urinate. She notes that she went in for her monthly lab work. She notes that she will receive her lab results September 25, [address] Jo. She notes that her blood pressure has been low. She denies a history of rectal bleeding. 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 Review of Systems See HPI for pertinent positives & negatives. A total of 10 systems reviewed and were otherwise negative. Past Medical & Surgical Medical Problems: (1) Anemia (2) CKD (chronic kidney disease) stage V requiring chronic dialysis (3) Diastolic CHF (4) DM2 (diabetes mellitus, type 2) (5) Fistula of artery (6) FSGS (focal segmental glomerulosclerosis) (7) HTN (hypertension) (8) Migraine (9) Pancreatitis (10) PD catheter (11) Peritoneal dialysis catheter in place (12) Pulmonary embolism (13) Renal failure (14) Tunnel catheter Surgical Problems: (1) H/O section (2) H/O eye surgery (3) H/O hernia repair (4) H/O knee surgery (5) H/O tubal ligation (6) H/O: (7) History of cholecystectomy (8) Kidney transplant status, living related donor Family History FATHER Crohn's disease Blood clots MOTHER Diabetes mellitus SISTER Hypertension BROTHER Blood clots Relation not specified for: Gallbladder disease Heart disease Lung disease Social History Smoking Status: Current Every Day Smoker (1/2 ppd) Alcohol Use: none Drug Use: none Marital Status: in relationship Housing Status: lives with family Occupation Status: unemployed Current/Historical Medications Scheduled Calcitriol (Calcitriol), 2 CAP PO QAM Calcium Acetate (Phoslo 667 Mg), 3 CAP PO WM Calcium Acetate (Phoslo 667 Mg), 2 CAP PO WITH SNACKS Calcium Carbonate (Tums), 3 TABS PO HS Famotidine (Pepcid), 40 MG PO QAM Furosemide (Lasix), 80 MG PO BID Lorazepam (Lorazepam), 1 TAB PO HS Potassium Chloride Microencaps (Potassium Chloride Er), 1 TAB PO DAILY Vortioxetine HBr (Trintellix), 5 MG PO QAM Scheduled PRN Albuterol Hfa (Ventolin Hfa), 2 PUFFS INH Q4H PRN for SOB/Wheezing Sumatriptan Succinate (Sumatriptan Succinate), 1 TAB PO Q6 PRN for Migraine Tramadol HCl (Tramadol HCl), 1 TAB PO Q6 PRN for Pain Allergies Coded Allergies: Cefaclor (Verified Allergy, Intermediate, Rash, 09/06/17) Reported by PT. Amoxicillin (Verified Adverse Reaction, Mild, VOMITING, 09/06/17) Clavulanic Acid (Verified Adverse Reaction, Mild, VOMITING, 09/06/17) Physical Exam Vital Signs Date Time Temp Pulse Resp B/P (MAP) Pulse Ox O2 Delivery O2 Flow Rate FiO2 09/06/17 16:00 108 18 105/65 96 Room Air 09/06/17 15:03 36.8 128 16 94/67 99 Room Air Physical Exam CONSTITUTIONAL/VITAL SIGNS: Reviewed / noted above. GENERAL: Non-toxic in appearance. INTEGUMENTARY: Warm, dry, and [place]. HEAD: Normocephalic. EYES: without scleral icterus or trauma. ENT/OROPHARYNX: clear and moist. LYMPHADENOPATHY/NECK: Is supple without lymphadenopathy or meningismus. RESPIRATORY: Lungs clear and equal. CARDIOVASCULAR: Regular rate and rhythm. GI/ABDOMEN: Soft and nontender. No organomegaly or pulsatile mass. No rebound or guarding. Normal bowel sounds. EXTREMITIES: Warm and well perfused. BACK: No CVA tenderness. NEUROLOGICAL: Intact without focal deficits. PSYCHIATRIC: normal affect. MUSCULOSKELETAL: Normally developed with good muscle tone. RECTAL: Guaiac negative. Light brown stool Medical Decision & Procedures Laboratory Results 09/06/17 16:17 09/06/17 16:17 Test 09/06/17 16:17 Red Blood Count 3.42 M/uL (4.2-5.4) Mean Corpuscular Volume 99.7 fL (80-100) Mean Corpuscular Hemoglobin 33.6 pg (25-34) Mean Corpuscular Hemoglobin Concent 33.7 g/dl (32-36) RDW Standard Deviation 59.1 fL (36.4-46.3) RDW Coefficient of Variation 16.8 % (11.5-14.5) Mean Platelet Volume 9.0 fL (7.4-10.4) Anion Gap 12.0 mmol/L (3-11) Est Creatinine Clear Calc Drug Dose 5.8 ml/min Estimated GFR () 3.3 Estimated GFR (Non- 2.8 BUN/Creatinine Ratio 3.2 (10-20) Calcium Level 8.8 mg/dl (8.5-10.1) Laboratory results as stated above per my review. ED Course 1526: Previous medical records were reviewed. The patient was evaluated in room B11B. A complete history and physical examination was performed. 1755: I reassessed the patient at this time. She is feeling better and resting comfortably. I discussed the results and treatment plan with the patient. I answered all pertaining questions that she had. She expressed understanding and verbalized agreement. The patient will be discharged home. Medical Decision Prior records/ancillary studies reviewed. Triage Nursing notes reviewed. The patient's history was concerning for possible gastrointestinal bleeding. Differential diagnosis: Etiologies such as diverticulosis, AVM, coagulopathy, colitis, inflammatory bowel disease, malignancy, Karen-Christianson tear, esophagitis, peptic ulcer disease , variceal bleed, gastritis, epistaxis, fissure, hemorrhoids, as well as others were entertained. This is a 31-year-old female who presents to the ED with a chief complaint of concerns about rectal bleeding. The patient states that she has had rectal bleeding for 3 days. When asked to the color of the bleeding, she states that it is cough or an color. She states that she's had some diarrhea for about a week. The patient reports about 6 or 7 episodes of day. She states that she would have no trouble giving us a sample here today. She was unable to give a sample. Rectal exam revealed light brown and guaiac negative stool. The patient's hemoglobin is 11.5. This is better than baseline. PRP was unremarkable other than chronic renal changes. The patient was told the results. She is felt to be stable for discharge. Medication Reconcilliation Current Medication List: was personally reviewed by me Blood Pressure Screening Patient's blood pressure: Normal blood pressure Impression Primary Impression: Diarrhea Scribe Attestation The scribe's documentation has been prepared under my direction and personally reviewed by me in its entirety. I confirm that the note above accurately reflects all work, treatment, procedures, and medical decision making performed by me. Departure Information Dispostion Home / Self-Care Referrals Adolph Aldridge M.D. (PCP) Patient Instructions My [facility] Additional Instructions Follow-up with your doctor for further care and evaluation in 1week. Return to the emergency department for worsening or new symptoms or any concerns. You have been examined and treated today on an emergency basis only. This is not a substitute for, or an effort to provide, complete comprehensive medical care. It is impossible to recognize and treat all injuries or illnesses in a single emergency department visit. It is therefore important that you follow up closely with your doctor. Call as soon as possible for an appointment.
[2017-09-06 17:08] LABS: CALCIUM 8.8 mg/dl (8.5-10.1); POTASSIUM 3.4 mmol/L (3.5-5.1)
[2017-09-06 18:07] VITALS: BP 128/74; PULSE 82; O2SAT 97
== END 2017-09-06 18:09 | disposition home or self-care (01) ==
LOC: C.EDB 14:59
DX: R19.7 Diarrhea, unspecified (principal); I12.9 Hypertensive chronic kidney disease with stage 1 through stage 4 chronic kidney disease, or unspecified chronic kidney disease; N18.5 Chronic kidney disease, stage 5; E11.9 Type 2 diabetes mellitus without complications; I50.33 Acute on chronic diastolic (congestive) heart failure; K86.1 Other chronic pancreatitis; D64.9 Anemia, unspecified; Z99.2 Dependence on renal dialysis; Z98.51 Tubal ligation status; Z90.49 Acquired absence of other specified parts of digestive tract; Z94.0 Kidney transplant status; F17.200 Nicotine dependence, unspecified, uncomplicated; Z79.899 Other long term (current) drug therapy; Z88.1 Allergy status to other antibiotic agents; Z88.8 Allergy status to other drugs, medicaments and biological substances; Z83.3 Family history of diabetes mellitus; Z82.49 Family history of ischemic heart disease and other diseases of the circulatory system; Z83.79 Family history of other diseases of the digestive system; Z83.2 Family history of diseases of the blood and blood-forming organs and certain disorders involving the immune mechanism

== ENCOUNTER 2017-09-09 11:31 | Emergency (ER) | payer OTHER ==
[~2017-09-09] VITALS: Ht 167.6 cm; Wt 77.0 kg
[~2017-09-09 11:31] MED LIST changes: +ATV5X PO; +IMT50 PO; -LORA-741 PO; -MCRK20 PO; +POTA20TA13 PO; +ULT50 PO; -ULT50X PO
[2017-09-09 11:45] VITALS: TEMP 36.5; Ht 167.6 cm; Wt 77.0 kg
[2017-09-09] MEDS ORDERED: SODIUM CHLORIDE 0.9% 500ML 500 ML IV STA ×2 (12:20→14:23)
[2017-09-09 12:25] VITALS: O2SAT 96
--- NOTE | 2017-09-09 13:18 | DIAGNOSTIC IMAGING REPORT ---
CHEST ONE VIEW PORTABLE CLINICAL HISTORY: EVALUATE WEAKNESS mental status change COMPARISON STUDY: 08/30/2017 FINDINGS: The bones soft tissues and hemidiaphragms are normal. The cardiomediastinal silhouette is normal. The lungs are clear. The pulmonary vasculature is normal. IMPRESSION: Negative chest. The above report was generated using voice recognition software. It may contain grammatical, syntax or spelling errors. Electronically signed by: Adolph Rizo M.D. 09/09/2017 1:17 PM Dictated Date/Time: 09/09/2017 1:17 PM
[2017-09-09 13:32] LABS: BASO % 0.2 %; BASO ABS # 0.03 K/uL (0-0.2); EOS % 0.8 %; EOS ABS # 0.11 K/uL (0-0.5); HEMATOCRIT 39.2 % (37-47); HEMOGLOBIN 13.5 g/dL (12.0-16.0); IG# 0.05 K/uL (0.00-0.02); LYMPH % 9.6 %; MEAN CELL VOLUME 100.3 fL (80-100); MEAN CORPUSCULAR HEMOGLOBIN 34.5 pg (25-34); MEAN CORPUSCULAR HGB CONC 34.4 g/dl (32-36); MEAN PLATELET VOLUME 9.4 fL (7.4-10.4); MONO % 4.7 %; MONO ABS # 0.68 K/uL (0.11-0.59); NEUT % 84.4 %; NEUT ABS # 12.28 K/uL (1.4-6.5); PLATELET COUNT 214 K/uL (130-400); RED CELL DISTRIBUTION WIDTH CV 16.8 % (11.5-14.5); RED CELL DISTRIBUTION WIDTH SD 58.7 fL (36.4-46.3); WHITE BLOOD COUNT 14.55 K/uL (4.8-10.8)
[2017-09-09 14:00] LABS: CALCIUM 9.9 mg/dl (8.5-10.1); CREATININE 15.4 mg/dl (0.60-1.20); POTASSIUM 3.3 mmol/L (3.5-5.1)
[2017-09-09] MEDS ORDERED: ACETAMINOPHEN 500 MG TAB PO STA (14:23)
[2017-09-09] MEDS ORDERED: ONDANSETRON INJ 2 MG/ML 2 ML VIAL IV STA (14:23)
--- NOTE | 2017-09-09 15:24 | EMERGENCY ROOM VISIT NOTE ---
History Report prepared by Katia: Keon Gong Under the Supervision of: Dr. Karan Santiago M.D. First contact with patient: 12:03 Chief Complaint: DIZZY Stated Complaint: DIZZINESS Nursing Triage Summary: Pt arrived via ambulance BLS. Pt states that she became dizzy with standing this morning. Pt did her peritoneal dialysis last night. Pt called her kidney specialist and was told to come to the hospital. Pt states that she has not eaten since saturday but is drinking an excessive amount of fluid. Pts BP have been running low History of Present Illness The patient is a 31 year old white female with a past medical history of PE, pancreatitis, HTN, CKD and CHF who presents to the ED by EMS with a cc of intermittent dizziness beginning a few hours ago. Symptoms worsened with movement. Referred to the ED by her wrister. She is on peritoneal dialysis with her most recent PD occurring last night. PD last night was normal, and lasted for the typical 9 hours. Currently on her menstrual cycle which is normal. No passing out. Positive rash on her arms and legs for past month. Scheduled to see dermatology in September. Source of History: patient Onset: A few hours ago Quality: other (dizziness) Timing: intermittent Modifying Factors (Worsening): movement Associated Symptoms: + rash (arms and legs x 1 month) Review of Systems See HPI for pertinent positives and negatives. A total of ten systems were reviewed and were otherwise negative. Past Medical & Surgical Medical Problems: (1) Anemia (2) CKD (chronic kidney disease) stage V requiring chronic dialysis (3) Diastolic CHF (4) DM2 (diabetes mellitus, type 2) (5) Fistula of artery (6) FSGS (focal segmental glomerulosclerosis) (7) HTN (hypertension) (8) Migraine (9) Pancreatitis (10) PD catheter (11) Peritoneal dialysis catheter in place (12) Pulmonary embolism (13) Renal failure (14) Tunnel catheter Surgical Problems: (1) H/O section (2) H/O eye surgery (3) H/O hernia repair (4) H/O knee surgery (5) H/O tubal ligation (6) H/O: (7) History of cholecystectomy (8) Kidney transplant status, living related donor Family History Blood clots FATHER BROTHER Crohn's disease FATHER Diabetes mellitus MOTHER Gallbladder disease Heart disease Hypertension SISTER Lung disease Social History Smoking Status: Former Smoker Alcohol Use: none Drug Use: none Marital Status: in relationship Housing Status: lives with family Occupation Status: unemployed Current/Historical Medications Scheduled Calcitriol (Calcitriol), 2 CAP PO QAM Calcium Acetate (Phoslo 667 Mg), 3 CAP PO WM Calcium Acetate (Phoslo 667 Mg), 2 CAP PO WITH SNACKS Calcium Carbonate (Tums), 3 TABS PO HS Famotidine (Pepcid), 40 MG PO QAM Lorazepam (Lorazepam), 1 TAB PO HS Vortioxetine HBr (Trintellix), 5 MG PO QAM Scheduled PRN Albuterol Hfa (Ventolin Hfa), 2 PUFFS INH Q4H PRN for SOB/Wheezing Sumatriptan Succinate (Sumatriptan Succinate), 1 TAB PO Q6 PRN for Migraine Tramadol HCl (Tramadol HCl), 1 TAB PO Q6 PRN for Pain Allergies Coded Allergies: Cefaclor (Verified Allergy, Intermediate, Rash, 09/06/17) Reported by PT. Amoxicillin (Verified Adverse Reaction, Mild, VOMITING, 09/06/17) Clavulanic Acid (Verified Adverse Reaction, Mild, VOMITING, 09/06/17) Physical Exam Vital Signs Date Time Temp Pulse Resp B/P (MAP) Pulse Ox O2 Delivery O2 Flow Rate FiO2 09/09/17 15:58 95 18 107/57 99 09/09/17 15:16 88 20 110/77 95 Room Air 09/09/17 13:26 113 20 108/74 95 Room Air 09/09/17 12:25 96 Room Air 09/09/17 12:11 108 09/09/17 11:45 36.5 113 18 99/71 95 Room Air 09/09/17 11:43 113 18 99/71 96 Room Air 112 99/75 131 59/49 Physical Exam GENERAL: Awake, alert, well-appearing, NAD HENT: Normocephalic, atraumatic. EYES: Normal conjunctiva. Sclera non-icteric. NECK: Supple. No nuchal rigidity. FROM. RESPIRATORY: CTAB, no rhonchi, wheezing, crackles CARDIAC: Tachycardic rate with a regular rhythm, no MRG ABDOMEN: Soft, NTND, BS+. Peritoneal dialysis catheter in the LLQ. MSK: No chest wall TTP, no LE edema NEURO: GCS 15, CN 2-12 intact, moves all 4s on command SKIN: No rash or jaundice noted. Medical Decision & Procedures ER Provider Diagnostic Interpretation: Radiology results as stated below per my review and radiologist interpretation: CHEST ONE VIEW PORTABLE FINDINGS: The bones soft tissues and hemidiaphragms are normal. The cardiomediastinal silhouette is normal. The lungs are clear. The pulmonary vasculature is normal. IMPRESSION: Negative chest. The above report was generated using voice recognition software. It may contain grammatical, syntax or spelling errors. Electronically signed by: Adolph Rizo M.D. 09/09/2017 1:17 PM Laboratory Results 09/09/17 13:04 Red Blood Count 3.91, Mean Corpuscular Volume 100.3, Mean Corpuscular Hemoglobin 34.5, Mean Corpuscular Hemoglobin Concent 34.4, Mean Platelet Volume 9.4, Neutrophils (%) (Auto) 84.4, Lymphocytes (%) (Auto) 9.6, Monocytes (%) ( Auto) 4.7, Eosinophils (%) (Auto) 0.8, Basophils (%) (Auto) 0.2, Neutrophils # ( Auto) 12.28, Lymphocytes # (Auto) 1.40, Monocytes # (Auto) 0.68, Eosinophils # ( Auto) 0.11, Basophils # (Auto) 0.03 09/09/17 13:04 Test 09/09/17 13:04 White Blood Count 14.55 K/uL (4.8-10.8) Red Blood Count 3.91 M/uL (4.2-5.4) Hemoglobin 13.5 g/dL (12.0-16.0) Hematocrit 39.2 % (37-47) Mean Corpuscular Volume 100.3 fL (80-100) Mean Corpuscular Hemoglobin 34.5 pg (25-34) Mean Corpuscular Hemoglobin Concent 34.4 g/dl (32-36) Platelet Count 214 K/uL (130-400) Mean Platelet Volume 9.4 fL (7.4-10.4) Neutrophils (%) (Auto) 84.4 % Lymphocytes (%) (Auto) 9.6 % Monocytes (%) (Auto) 4.7 % Eosinophils (%) (Auto) 0.8 % Basophils (%) (Auto) 0.2 % Neutrophils # (Auto) 12.28 K/uL (1.4-6.5) Lymphocytes # (Auto) 1.40 K/uL (1.2-3.4) Monocytes # (Auto) 0.68 K/uL (0.11-0.59) Eosinophils # (Auto) 0.11 K/uL (0-0.5) Basophils # (Auto) 0.03 K/uL (0-0.2) RDW Standard Deviation 58.7 fL (36.4-46.3) RDW Coefficient of Variation 16.8 % (11.5-14.5) Immature Granulocyte % (Auto) 0.3 % Immature Granulocyte # (Auto) 0.05 K/uL (0.00-0.02) Anion Gap 20.0 mmol/L (3-11) Est Creatinine Clear Calc Drug Dose 5.5 ml/min Estimated GFR () 3.2 Estimated GFR (Non- 2.8 BUN/Creatinine Ratio 3.7 (10-20) Calcium Level 9.9 mg/dl (8.5-10.1) Laboratory results reviewed by me Medications Administered Medications (Trade) Dose Ordered Sig/Sachin Route Start Time Stop Time Status Last Admin Dose Admin Sodium Chloride 500 ml @ 999 mls/hr Q31M STAT IV 09/09/17 12:20 09/09/17 12:50 DC 09/09/17 13:18 999 MLS/HR Acetaminophen (Tylenol Tab) 1,000 mg NOW STAT PO 09/09/17 14:23 09/09/17 14:25 DC 09/09/17 14:38 1,000 MG Ondansetron HCl (Zofran Inj) 4 mg NOW STAT IV 09/09/17 14:23 09/09/17 14:25 DC 09/09/17 14:38 4 MG Sodium Chloride 500 ml @ 999 mls/hr Q31M STAT IV 09/09/17 14:23 09/09/17 14:53 DC 09/09/17 14:23 999 MLS/HR ECG Indication: other (dizziness) Rate (beats per minute): 111 Rhythm: sinus tachycardia Findings: other (Normal intervals. Normal axis. T-wave flattening inferiorly. No other STS changes or TWI. ) ED Course 1215: The patient was evaluated in room C6. A complete history and physical exam was performed. 1420: i reassessed the patient. She is having a mild headache. 1515: I reevaluated the patient. Her tachycardia has resolved and she feels better. Discussed results and discharge instructions: she verbalized understanding and agreement. The patient is ready for discharge. Medical Decision The patient is a 31 year old white female with a past medical history of PE, pancreatitis, HTN, CKD and CHF who presents to the ED by EMS with a cc of dizziness beginning a few hours ago. Differential diagnosis: Etiologies such as benign positional vertigo, dehydration, hypovolemia, anemia, tumor, infection, hypoglycemia, electrolyte abnormalities, cardiac sources, intracerebral event, toxicologic, neurologic, as well as others were entertained. Patient was seen and evaluated the bedside. Patient does have a chronic history of CK D and does get peritoneal dialysis. Patient noticed today she was walking about she felt very lightheaded. Patient denies any infectious symptoms. Patient did have blood work that was completed. Patient was noted to have softer blood pressures and the patient was tachycardic. Patient did have positive orthostatic vital signs. Patient did have an elevated creatinine and a low potassium. This was not repleted given her history of CK D and ESRD. Patient did have a mild elevation white count 14,000. Patient denied any infectious symptoms whatsoever. Upon reassessment the patient did complain of some very mild headache. No signs of meningismus. Patient did have an anion gap of 20. This may be somewhat related to her uremia. This may be also related to some dehydration. Patient denies any other infectious symptoms at this time so no further workup was initiated just nausea since the patient was very well-appearing, feeling as though or lightheadedness as well as headache had improved. Patient was given additional fluids as well as medications. Patient was able tolerate by mouth was feeling improved. Given the patient's improvement with fluids as well as by mouth medications patient was deemed suitable for outpatient follow-up and treatment at this time. Patient's tachycardia did resolve and the patient was afebrile during her stay. Patient told return if she had any worsening symptoms. Patient was given strict follow- up, discharge, and return precautions. All questions were answered. Patient was deemed suitable for outpatient follow-up at this time. Patient agreed with the plan of care and was safely discharged home. The chart was completed utilizing [employer] voice recognition software. Grammatical errors, random word insertions, pronoun errors, and incomplete sentences are an occasional consequence of this system due to software limitations, ambient noise, and hardware issues. Any formal questions or concerns about the content, text, or information contained within the body of this dictation should be directly addressed to the physician for clarification. Medication Reconcilliation Current Medication List: was personally reviewed by me Blood Pressure Screening Patient's blood pressure: Low blood pressure Blood pressure disposition: Did not require urgent referral Impression Primary Impression: Dizziness Additional Impressions: Dehydration Headache Hypokalemia Scribe Attestation The scribe's documentation has been prepared under my direction and personally reviewed by me in its entirety. I confirm that the note above accurately reflects all work, treatment, procedures, and medical decision making performed by me. Departure Information Dispostion Home / Self-Care Referrals Adolph Aldridge M.D. (PCP) Patient Instructions Dizziness Fainting Poss Causes, Headache Pain, My [facility] Additional Instructions Please return to the emergency department if you have worsening or recurrent symptoms not amenable to at-home treatment. Please call for a follow-up appointment with her primary care physician. Please take your medications as prescribed. If you have other concerns and/or complaints please feel free to also call your primary care physician's office or return the ED for further evaluation, management, and treatment. Take your medications as prescribed. You have been examined and treated today on an emergency basis only. This is not a substitute for, or an effort to provide, complete comprehensive medical care. It is impossible to recognize and treat all injuries or illnesses in a single emergency department visit. It is therefore important that you follow up closely with [facility], your PCP, and/or your specialist(s). Call as soon as possible for an appointment. Thank you for your time and consideration. I look forward to speaking with you again soon. Please don't hesitate to call us if you have any questions. Problem Qualifiers Additional Impressions: Headache Headache type: unspecified Headache chronicity pattern: acute headache Intractability: not intractable Qualified Codes: R51 - Headache
[2017-09-09 15:58] VITALS: BP 107/57; PULSE 95; O2SAT 99
== END 2017-09-09 15:59 | disposition home or self-care (01) ==
LOC: EDBD 11:31 → C.EDC 11:32
DX: R42 Dizziness and giddiness (principal); E86.0 Dehydration; R51 Headache; E87.6 Hypokalemia; R21 Rash and other nonspecific skin eruption; I12.0 Hypertensive chronic kidney disease with stage 5 chronic kidney disease or end stage renal disease; N18.5 Chronic kidney disease, stage 5; D64.9 Anemia, unspecified; I50.30 Unspecified diastolic (congestive) heart failure; E11.22 Type 2 diabetes mellitus with diabetic chronic kidney disease; N04.1 Nephrotic syndrome with focal and segmental glomerular lesions; R00.0 Tachycardia, unspecified; Z99.2 Dependence on renal dialysis; Z86.711 Personal history of pulmonary embolism; Z98.51 Tubal ligation status; Z94.0 Kidney transplant status; Z87.891 Personal history of nicotine dependence; Z83.2 Family history of diseases of the blood and blood-forming organs and certain disorders involving the immune mechanism; Z83.79 Family history of other diseases of the digestive system; Z83.3 Family history of diabetes mellitus; Z82.49 Family history of ischemic heart disease and other diseases of the circulatory system

== ENCOUNTER 2017-09-13 15:26 | Observation (INO) | payer OTHER ==
[~2017-09-13] VITALS: Ht 167.6 cm; Wt 85.0 kg
[~2017-09-13 15:26] MED LIST changes: -FRS/80 PO; -POTA20TA13 PO
[2017-09-13] MEDS ORDERED: SODIUM CHLORIDE 0.9% 1000ML 500 ML IV STA (15:39)
[2017-09-13] MEDS ORDERED: ONDANSETRON INJ 2 MG/ML 2 ML VIAL IV STA (15:39)
--- NOTE | 2017-09-13 16:00 | DIAGNOSTIC IMAGING REPORT ---
CHEST ONE VIEW PORTABLE HISTORY: 31 years-old Female EVALUATE ALTERED MENTAL STATUS/WEAKNESS acute altered mental status COMPARISON: Chest radiograph 09/09/2017 TECHNIQUE: Portable AP view of the chest FINDINGS: The cardiomediastinal and hilar silhouettes are within normal limits. There is no pneumothorax, pleural effusion, focal airspace consolidation or overt pulmonary edema. Bones of the chest appear grossly intact. Cholecystectomy clips are noted. IMPRESSION: No acute process. The above report was generated using voice recognition software. It may contain grammatical, syntax or spelling errors. Electronically signed by: Alejandro Copeland M.D. 09/13/2017 3:59 PM Dictated Date/Time: 09/13/2017 3:58 PM
--- NOTE | 2017-09-13 16:21 | EMERGENCY ROOM VISIT NOTE ---
History Report prepared by Katia: Dana Munson Under the Supervision of: Dr. North Thomas M.D. First contact with patient: 15:35 Chief Complaint: HYPOTENSION Stated Complaint: DIZZY, SICK IN STOMACH AND BLOOD PRESSURE IS LOW History of Present Illness The patient is a 31 year old female who presents to the Emergency Room with complaints of constant hypotension for the past week. The patient receives peritoneal dialysis nightly at home and it has been going well. She no longer makes any urine. The patient states that she has been feeling diaphoretic and having "hot spells" all week. She states that is how she knew she was having problems with her blood pressure. Her blood pressure has been low all week. She also reports some chest pain and a headache. She rates her pain as an 8/10 in severity. She reports a loss of appetite and states that eating makes her feels worse. The patient called her PCP today and was advised to come to the ED for further evaluation. About one month ago the patient was taken off of all of her blood pressure medications. Her LNMP was a couple of days ago. The patient denies fevers, chills, nausea, vomiting, melena, and hematochezia. She denies any LOC. She has felt like she is going to pass out but is able to sit or lay down so she does not actually pass out. Source of History: patient Onset: 1 week ago Position: other (global) Symptom Intensity: 8/10 Quality: other (hypotension) Timing: constant Modifying Factors (Worsening): eating Modifying Factors (Relieving): other (sitting or laying down) Associated Symptoms: + headache, + chest pain, No LOC, No fevers, No chills , No nausea, No vomiting, No melena, No hematochezia Review of Systems See HPI for pertinent positives & negatives. A total of 10 systems reviewed and were otherwise negative. Past Medical & Surgical Medical Problems: (1) Anemia (2) CKD (chronic kidney disease) stage V requiring chronic dialysis (3) Diastolic CHF (4) DM2 (diabetes mellitus, type 2) (5) Fistula of artery (6) FSGS (focal segmental glomerulosclerosis) (7) HTN (hypertension) (8) Migraine (9) Pancreatitis (10) PD catheter (11) Peritoneal dialysis catheter in place (12) Pulmonary embolism (13) Renal failure (14) Tunnel catheter Surgical Problems: (1) H/O section (2) H/O eye surgery (3) H/O hernia repair (4) H/O knee surgery (5) H/O tubal ligation (6) H/O: (7) History of cholecystectomy (8) Kidney transplant status, living related donor Family History Blood clots FATHER BROTHER Crohn's disease FATHER Diabetes mellitus MOTHER Gallbladder disease Heart disease Hypertension SISTER Lung disease Social History Smoking Status: Current Every Day Smoker Alcohol Use: none Drug Use: none Marital Status: in relationship Housing Status: lives with family Occupation Status: unemployed Current/Historical Medications Scheduled Calcitriol (Calcitriol), 2 CAP PO QAM Calcium Acetate (Phoslo 667 Mg), 3 CAP PO WM Calcium Acetate (Phoslo 667 Mg), 2 CAP PO WITH SNACKS Calcium Carbonate (Tums), 3 TABS PO HS Famotidine (Pepcid), 40 MG PO QAM Lorazepam (Lorazepam), 1 TAB PO HS Vortioxetine HBr (Trintellix), 5 MG PO QAM Scheduled PRN Albuterol Hfa (Ventolin Hfa), 2 PUFFS INH Q4H PRN for SOB/Wheezing Sumatriptan Succinate (Sumatriptan Succinate), 1 TAB PO Q6 PRN for Migraine Tramadol HCl (Tramadol HCl), 1 TAB PO Q6 PRN for Pain Allergies Coded Allergies: Cefaclor (Verified Allergy, Intermediate, Rash, 09/06/17) Reported by PT. Amoxicillin (Verified Adverse Reaction, Mild, VOMITING, 09/06/17) Clavulanic Acid (Verified Adverse Reaction, Mild, VOMITING, 09/06/17) Physical Exam Vital Signs Date Time Temp Pulse Resp B/P (MAP) Pulse Ox O2 Delivery O2 Flow Rate FiO2 09/13/17 16:59 99 16 106/65 96 Room Air 09/13/17 16:28 103 09/13/17 16:00 Room Air 09/13/17 15:59 104 16 95/65 96 Room Air 09/13/17 15:31 36.8 115 20 79/60 98 Room Air Physical Exam GENERAL: Patient is in no acute distress. HEENT: No acute trauma, normocephalic atraumatic, mucous membranes moist, no nasal congestion, no scleral icterus. NECK: No stridor, no adenopathy, no meningismus, trachea is midline. LUNGS: Clear to auscultation bilaterally, no wheeze, no rhonchi, breath sounds equal. HEART: Mildly tachycardic with a regular rhythm, no murmurs. ABDOMEN: Soft, nontender, bowel sounds positive, no hernias, no peritonitis. Peritoneal dialysis catheter noted. EXTREMITIES: No cyanosis or edema, full range of motion of all the joints without pain or difficulty, no signs for acute trauma. NEUROLOGIC: Oriented x 3, no acute motor or sensory deficits, no focal weakness. SKIN: Pale, no rash, no jaundice, no diaphoresis. Medical Decision & Procedures ER Provider Diagnostic Interpretation: Radiology results as stated below per my review and radiologist interpretation: CHEST ONE VIEW PORTABLE HISTORY: 31 years-old Female EVALUATE ALTERED MENTAL STATUS/WEAKNESS acute altered mental status COMPARISON: Chest radiograph 09/09/2017 TECHNIQUE: Portable AP view of the chest FINDINGS: The cardiomediastinal and hilar silhouettes are within normal limits. There is no pneumothorax, pleural effusion, focal airspace consolidation or overt pulmonary edema. Bones of the chest appear grossly intact. Cholecystectomy clips are noted. IMPRESSION: No acute process. The above report was generated using voice recognition software. It may contain grammatical, syntax or spelling errors. Electronically signed by: Alejandro Copeland M.D. 09/13/2017 3:59 PM Dictated Date/Time: 09/13/2017 3:58 PM Laboratory Results 09/13/17 16:24 Red Blood Count 3.29, Mean Corpuscular Volume 100.0, Mean Corpuscular Hemoglobin 34.3, Mean Corpuscular Hemoglobin Concent 34.3, Mean Platelet Volume 9.6, Neutrophils (%) (Auto) 81.1, Lymphocytes (%) (Auto) 12.7, Monocytes (%) ( Auto) 4.6, Eosinophils (%) (Auto) 1.0, Basophils (%) (Auto) 0.2, Neutrophils # ( Auto) 8.54, Lymphocytes # (Auto) 1.34, Monocytes # (Auto) 0.49, Eosinophils # ( Auto) 0.11, Basophils # (Auto) 0.02 09/13/17 16:24 Test 09/13/17 16:24 White Blood Count 10.54 K/uL (4.8-10.8) Red Blood Count 3.29 M/uL (4.2-5.4) Hemoglobin 11.3 g/dL (12.0-16.0) Hematocrit 32.9 % (37-47) Mean Corpuscular Volume 100.0 fL (80-100) Mean Corpuscular Hemoglobin 34.3 pg (25-34) Mean Corpuscular Hemoglobin Concent 34.3 g/dl (32-36) Platelet Count 199 K/uL (130-400) Mean Platelet Volume 9.6 fL (7.4-10.4) Neutrophils (%) (Auto) 81.1 % Lymphocytes (%) (Auto) 12.7 % Monocytes (%) (Auto) 4.6 % Eosinophils (%) (Auto) 1.0 % Basophils (%) (Auto) 0.2 % Neutrophils # (Auto) 8.54 K/uL (1.4-6.5) Lymphocytes # (Auto) 1.34 K/uL (1.2-3.4) Monocytes # (Auto) 0.49 K/uL (0.11-0.59) Eosinophils # (Auto) 0.11 K/uL (0-0.5) Basophils # (Auto) 0.02 K/uL (0-0.2) RDW Standard Deviation 60.5 fL (36.4-46.3) RDW Coefficient of Variation 17.0 % (11.5-14.5) Immature Granulocyte % (Auto) 0.4 % Immature Granulocyte # (Auto) 0.04 K/uL (0.00-0.02) Prothrombin Time 10.2 SECONDS (9.0-12.0) Prothromb Time International Ratio 1.0 (0.9-1.1) Activated Partial Thromboplast Time 23.8 SECONDS (21.0-31.0) Partial Thromboplastin Ratio 0.9 Anion Gap 18.0 mmol/L (3-11) Est Creatinine Clear Calc Drug Dose 5.8 ml/min Estimated GFR () 3.3 Estimated GFR (Non- 2.9 BUN/Creatinine Ratio 4.0 (10-20) Lactic Acid Level 1.3 mmol/L (0.4-2.0) Calcium Level 9.3 mg/dl (8.5-10.1) Magnesium Level 2.4 mg/dl (1.8-2.4) Total Bilirubin 0.3 mg/dl (0.2-1) Aspartate Amino Transf (AST/SGOT) 21 U/L (15-37) Alanine Aminotransferase (ALT/SGPT) 28 U/L (12-78) Alkaline Phosphatase 86 U/L (45-117) Troponin I 0.018 ng/ml (0-0.045) Total Protein 8.0 gm/dl (6.4-8.2) Albumin 3.6 gm/dl (3.4-5.0) Globulin 4.4 gm/dl (2.5-4.0) Albumin/Globulin Ratio 0.8 (0.9-2) Thyroid Stimulating Hormone (TSH) 0.649 uIu/ml (0.300-4.500) Laboratory results reviewed by me. Medications Administered Medications (Trade) Dose Ordered Sig/Sachin Route Start Time Stop Time Status Last Admin Dose Admin Sodium Chloride 500 ml @ 999 mls/hr Q31M STAT IV 09/13/17 15:39 09/13/17 16:09 DC 09/13/17 15:39 999 MLS/HR Ondansetron HCl (Zofran Inj) 4 mg NOW STAT IV 09/13/17 15:39 09/13/17 15:42 DC 09/13/17 16:52 4 MG ECG Indication: other (hypotension) Rate (beats per minute): 103 Rhythm: sinus tachycardia Findings: nonspecific-ST abn, no ectopy Change: ECG as interpreted by myself. ED Course 1535: The patient was evaluated in room C7. A complete history and physical exam was performed. 1539: Zofran 4 mg IV, NSS 500 ml @ 999 mls/hr IV 1738: I spoke with Jackie Jaramillo PA-C. We discussed the patients case. The patient will be evaluated by the [facility] for further management. 1740: NSS 250 ml @ 999 mls/hr IV 1744: I reassessed the patient at this time. She is feeling better and resting comfortably. I discussed the results and treatment plan with the patient. I answered all pertaining questions that she had. She expressed understanding and verbalized agreement. Medical Decision Differential diagnoses includes anemia, dehydration, sepsis, electrolyte imbalance, dysrhythmia, medication reaction. There is no leukocytosis or worrisome anemia. Renal panel testing shows a high creatinine, this is consistent with her need for dialysis. There was no hepatitis. Lactic acid level is not elevated making sepsis less likely. Blood cultures are pending. The patient appears to be in a euthyroid state. Chest film does not show pneumonia or CHF. The patient presents hypotensive and dizzy. She was mildly tachycardic. She received IV saline with a nice response. Her blood pressure improved, her heart rate decreased and she felt better. The patient presents quite hypotensive and tachycardic. I don't think she is safe for discharge home. Further workup is necessary to determine the reason for the hypotension. Possibly, she is being over dialyzed throughout the night. I spoke to the patient and case management. The on-call hospitalist was consulted. Medication Reconcilliation Current Medication List: was personally reviewed by me Blood Pressure Screening Patient's blood pressure: Low blood pressure Consults Time Called: 173 Consulting Physician: Jackie Jaramillo PA-C Returned Call: [phone] I spoke with Jackie Jaramillo PA-C. We discussed the patients case. The patient will be evaluated by the [facility] for further management. Impression Primary Impression: Hypotension Scribe Attestation The scribe's documentation has been prepared under my direction and personally reviewed by me in its entirety. I confirm that the note above accurately reflects all work, treatment, procedures, and medical decision making performed by me. Departure Information Dispostion Being Evaluated By Hospitalist Referrals Yohana Jo DO (PCP) Patient Instructions My [facility]
[2017-09-13 16:40] LABS: BASO % 0.2 %; BASO ABS # 0.02 K/uL (0-0.2); EOS ABS # 0.11 K/uL (0-0.5); HEMATOCRIT 32.9 % (37-47); HEMOGLOBIN 11.3 g/dL (12.0-16.0); IG# 0.04 K/uL (0.00-0.02); LYMPH % 12.7 %; LYMPH ABS # 1.34 K/uL (1.2-3.4); MEAN CORPUSCULAR HEMOGLOBIN 34.3 pg (25-34); MEAN CORPUSCULAR HGB CONC 34.3 g/dl (32-36); MEAN PLATELET VOLUME 9.6 fL (7.4-10.4); MONO % 4.6 %; MONO ABS # 0.49 K/uL (0.11-0.59); NEUT % 81.1 %; NEUT ABS # 8.54 K/uL (1.4-6.5); PLATELET COUNT 199 K/uL (130-400); RED CELL DISTRIBUTION WIDTH SD 60.5 fL (36.4-46.3); WHITE BLOOD COUNT 10.54 K/uL (4.8-10.8)
[2017-09-13 16:53] LABS: PTT PATIENT 23.8 SECONDS (21.0-31.0)
[2017-09-13 17:08] LABS: ALBUMIN 3.6 gm/dl (3.4-5.0); CALCIUM 9.3 mg/dl (8.5-10.1); CREATININE 14.8 mg/dl (0.60-1.20); POTASSIUM 3.2 mmol/L (3.5-5.1)
[2017-09-13] MEDS ORDERED: SODIUM CHLORIDE 0.9% 250ML 250 ML IV STA (17:40)
[2017-09-13] MEDS ORDERED: ONDANSETRON INJ 2 MG/ML 2 ML VIAL IV PRN (18:30)
[2017-09-13] MEDS ORDERED: SUMATRIPTAN SUCCINATE 50 MG TAB PO PRN (18:45)
[2017-09-13] MEDS ORDERED: ALBUTEROL HFA 8 GM INHALER INH PRN (18:45)
[2017-09-13] MEDS ORDERED: CALCIUM ACETATE 667MG GELCAP PO PRN (18:45)
[2017-09-13] MEDS ORDERED: IV FLUIDS COMPLETED PRN (19:45)
--- NOTE | 2017-09-13 20:26 | History and Physical ---
History & Physical Date & Time of Service: Sep 13, 2017 at 18:51 Chief Complaint: Dizzy, Sick In Stomach And Blood Pressure Is Low Primary Care Physician: Adolph Aldridge MD History of Present Illness Source: patient, clinic records, hospital records Pt is 31 y/o F with PMH FSGS, ESRD on PD, failed renal transplant, DM II diet controlled, migraine, HTN presented to ER with c/o dizziness and hypotension. Pt reports has been having hypotension and orthostatic dizziness for past 2-3 months. Has had multiple ER visits. ER visit on 09/09/17 for dizziness, received NSS with improvement. Hx ER visit 09/06/17 for diarrhea. Admission 08/30-09/02/17 for syncope. ER visit on 08/20/18 & 08/17/18 for dizziness also. Doesn't make any urine. Does home PD nightly. She reports is using yellow bag. States initial 1000ml, total UF <900ml. Denies any blood noted in peritoneal fluid. She has been drinking 1L water daily. Pt reports hx heartburn. Using pepcid, sometimes without much relief. She reports poor appetite for weeks and admits hasn't been eating much. Denies vomiting or abdominal pain. Reports hx diarrhea , 3-6 episodes daily. Heme negative stool in ER on 09/06/17. In ER P: 115 to 99, BP: 79/60 to 106/65 after 750ml NSS. Pt reports feeling much better after IVF. EKG: sinus tachy at 103. No leukocytosis. Hgb: 11.3 (~ baseline). pending blood cultures. Negative CXR. Past Medical/Surgical History Medical Problems: (1) Anemia Status: Chronic (2) CKD (chronic kidney disease) stage V requiring chronic dialysis Status: Chronic (3) Diastolic CHF Permanent Comment: echo 04/18/17 - EF 60-65%, grade II diastolic dysfunction Status: Chronic (4) DM2 (diabetes mellitus, type 2) Status: Chronic (5) Fistula of artery Status: Chronic (6) FSGS (focal segmental glomerulosclerosis) Status: Chronic (7) HTN (hypertension) Status: Chronic (8) Migraine Status: Chronic (9) Pancreatitis Status: Resolved (10) PD catheter Status: Chronic (11) Peritoneal dialysis catheter in place Status: Chronic (12) Pulmonary embolism Permanent Comment: found on VQ scan however follow up CTA chest was negative for PE therefore Coumadin was stoppped Status: Chronic (13) Renal failure Permanent Comment: She has ESRD but is super non complaint with Dialysis. has missed dialysis for more than 2 weeks. As a result has lot of biochemical indicators of missing Dialysis--very lot Hgb, very low Calcium and very high BUn and creatinine. Because her BUN and creat is so high she is at risk for Dysequlibrium syndrome. So to avoid that will have to slow incremental dialysis. Will do 2hrs today, low qb dialysis. tomorrow will be 3 hrs and then Saturday will be 4 hrs. She is c/o Pain at the CVC site but it looks fine on exam and the Imaging. Will know further with Dialysis. I am surprised that despite such low Ca++ she still looks fine and no Symptoms. Status: Chronic (14) Tunnel catheter Status: Chronic Surgical Problems: (1) H/O section Status: Resolved (2) H/O eye surgery Status: Resolved (3) H/O hernia repair Status: Resolved (4) H/O knee surgery Status: Resolved (5) H/O tubal ligation Status: Resolved (6) H/O: Status: Resolved (7) History of cholecystectomy Status: Resolved (8) Kidney transplant status, living related donor Status: Resolved Family History Blood clots FATHER BROTHER Crohn's disease FATHER Diabetes mellitus MOTHER Gallbladder disease Heart disease Hypertension SISTER Lung disease Social History Smoking Status: Current Every Day Smoker Smokeless Tobacco Use: No Alcohol Use: none Drug Use: none Marital Status: in relationship Occupational Status: unemployed Immunizations History of Influenza Vaccine: Yes Influenza Vaccine Date: May 06, 2017 History of Tetanus Vaccine?: Yes Tetanus Immunization Date: Oct 09, 2011 History of Pneumococcal: Yes Pneumococcal Date: Mar 26, 2017 History of Hepatitis B Vaccine: Yes Hepatitis Immunization Date: May 21, 1998 Multi-Drug Resistant Organisms History of MDRO: No Allergies Coded Allergies: Cefaclor (Verified Allergy, Intermediate, Rash, 09/06/17) Reported by PT. Amoxicillin (Verified Adverse Reaction, Mild, VOMITING, 09/06/17) Clavulanic Acid (Verified Adverse Reaction, Mild, VOMITING, 09/06/17) Home Medications Scheduled Calcitriol (Calcitriol), 2 CAP PO QAM Calcium Acetate (Phoslo 667 Mg), 3 CAP PO WM Calcium Acetate (Phoslo 667 Mg), 2 CAP PO WITH SNACKS Calcium Carbonate (Tums), 3 TABS PO HS Famotidine (Pepcid), 40 MG PO QAM Vortioxetine HBr (Trintellix), 5 MG PO QAM Scheduled PRN Albuterol Hfa (Ventolin Hfa), 2 PUFFS INH Q4H PRN for SOB/Wheezing Lorazepam (Lorazepam), 1 TAB PO HS PRN for Insomnia Sumatriptan Succinate (Sumatriptan Succinate), 1 TAB PO UD PRN for Migraine Tramadol HCl (Tramadol HCl), 1 TAB PO Q6 PRN for Pain Review of Systems Constitutional: No fever, No chills, No sweats, No weight loss, No fatigue Eyes: No eye pain, No redness, No discharge ENT: No hearing loss, No unusual epistaxis, No nasal symptoms, No sore throat, No tinnitus, No trouble swallowing Respiratory: No cough, No sputum, No wheezing, No shortness of breath, No hemoptysis Cardiovascular: No chest pain, No orthopnea, No PND, No edema, No palpitations Abdomen: No pain Musculoskeletal: No joint pain, No muscle pain, No swelling, No calf pain Neurologic: No paralysis, No weakness, No numbness/tingling, No vertigo Endocrine: No excessive thirst Integumentary: + rash (rash to arms and legs >1month, has appt with dermatology ), No itch, No new/changing skin lesions, No color change, No bleeding, No problem reported Physical Exam Vital Signs Date Time Temp Pulse Resp B/P (MAP) Pulse Ox O2 Delivery O2 Flow Rate FiO2 09/13/17 18:34 100 22 91/74 98 Room Air 09/13/17 16:59 99 16 106/65 96 Room Air 09/13/17 16:28 103 09/13/17 16:00 Room Air 09/13/17 15:59 104 16 95/65 96 Room Air 09/13/17 15:31 36.8 115 20 79/60 98 Room Air General Appearance: WD/WN, no apparent distress Head: normocephalic, atraumatic Eyes: normal inspection, PERRL, EOMI, sclerae normal ENT: hearing grossly normal, pharynx normal, + pertinent finding (mucous membranes moist) Neck: supple, no JVD, trachea midline Respiratory/Chest: chest non-tender, lungs clear, normal breath sounds, no respiratory distress, no accessory muscle use Cardiovascular: regular rate, rhythm (98 pulse), no edema, no murmur Abdomen/GI: normal bowel sounds, non tender, soft Back: no CVA tenderness Extremities/Musculoskelatal: normal capillary refill, no pedal edema, normal range of motion, non-tender Neurologic/Psych: alert, normal mood/affect, oriented x 3 Skin: warm/dry, + pertinent finding (+erythematous round lesions with excoriations to bilateral arms and legs) Diagnostics Laboratory Results Results Past 24 Hours Test 09/13/17 16:24 Range/Units White Blood Count 10.54 4.8-10.8 K/uL Red Blood Count 3.29 4.2-5.4 M/uL Hemoglobin 11.3 12.0-16.0 g/dL Hematocrit 32.9 37-47 % Mean Corpuscular Volume 100.0 80-100 fL Mean Corpuscular Hemoglobin 34.3 25-34 pg Mean Corpuscular Hemoglobin Concent 34.3 32-36 g/dl Platelet Count 199 130-400 K/uL Mean Platelet Volume 9.6 7.4-10.4 fL Neutrophils (%) (Auto) 81.1 % Lymphocytes (%) (Auto) 12.7 % Monocytes (%) (Auto) 4.6 % Eosinophils (%) (Auto) 1.0 % Basophils (%) (Auto) 0.2 % Neutrophils # (Auto) 8.54 1.4-6.5 K/uL Lymphocytes # (Auto) 1.34 1.2-3.4 K/uL Monocytes # (Auto) 0.49 0.11-0.59 K/uL Eosinophils # (Auto) 0.11 0-0.5 K/uL Basophils # (Auto) 0.02 0-0.2 K/uL RDW Standard Deviation 60.5 36.4-46.3 fL RDW Coefficient of Variation 17.0 11.5-14.5 % Immature Granulocyte % (Auto) 0.4 % Immature Granulocyte # (Auto) 0.04 0.00-0.02 K/uL Prothrombin Time 10.2 9.0-12.0 SECONDS Prothromb Time International Ratio 1.0 0.9-1.1 Activated Partial Thromboplast Time 23.8 21.0-31.0 SECONDS Partial Thromboplastin Ratio 0.9 Sodium Level 130 136-145 mmol/L Potassium Level 3.2 3.5-5.1 mmol/L Chloride Level 88 98-107 mmol/L Carbon Dioxide Level 24 21-32 mmol/L Anion Gap 18.0 3-11 mmol/L Blood Urea Nitrogen 59 7-18 mg/dl Creatinine 14.80 0.60-1.20 mg/dl Est Creatinine Clear Calc Drug Dose 5.8 ml/min Estimated GFR () 3.3 Estimated GFR (Non- 2.9 BUN/Creatinine Ratio 4.0 10-20 Random Glucose 126 70-99 mg/dl Lactic Acid Level 1.3 0.4-2.0 mmol/L Calcium Level 9.3 8.5-10.1 mg/dl Magnesium Level 2.4 1.8-2.4 mg/dl Total Bilirubin 0.3 0.2-1 mg/dl Aspartate Amino Transf (AST/SGOT) 21 15-37 U/L Alanine Aminotransferase (ALT/SGPT) 28 12-78 U/L Alkaline Phosphatase 86 45-117 U/L Troponin I 0.018 0-0.045 ng/ml Total Protein 8.0 6.4-8.2 gm/dl Albumin 3.6 3.4-5.0 gm/dl Globulin 4.4 2.5-4.0 gm/dl Albumin/Globulin Ratio 0.8 0.9-2 Thyroid Stimulating Hormone (TSH) 0.649 0.300-4.500 uIu/ml Microbiology Results 09/13/17 Blood Culture, Received Pending 09/13/17 Blood Culture, Received Pending Diagnostic Radiology CXR: IMPRESSION: No acute process. 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 Having hypotension for past couple of months. Now off all BP meds with continued symptoms. Dehydration vs ?taking off too much with PD. In ER P:115 to 99, BP: 79/60 to 106/65 after 750ml NSS. Pt reports feeling much better after IVF. EKG: sinus tachy at 103. No leukocytosis. Hgb: 11.3 (~baseline ). pending blood cultures. Negative CXR. -continue to monitor, BP stable at this time and holding on additional IVF. ESRD on PD -continue phoslo, calcitriol -nephrology consult DIARRHEA & INDIGESTION Reports diarrhea >1 month with >3 loose stools daily. Denies abdominal pain -continue pepcid at this time -stool cultures and c-diff ordered -GI consult HX MIGRAINE no GARNETT currently -continue prn home meds prn migraine DEPRESSION -continue SSRI DVT PROPHYLAXIS -heparin SQ DISPOSITION -admit tele -Full code -Follows with Dr Aldridge for routine care Pt was seen with Dr Morgan. See addendum Agree with above H and p. Briefly 31F with esrd on PD lately recurrent admissions for dizziness, hypotension, diarrhea presents with similar complaints. Laney was recently discharged. Says after going home had constipation and then again developed diarrhea. Had hree epsiodes today. Was feeling dizzy and in ER BP was low which respionsded to fluids. Currently feeling fine. Requests o eat dinner. Afebrile. No chest pain or sob. 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 for hypotension Level of Care Telemetry Resuscitation Status FULL RESUSCITATION VTE Prophylaxis VTE Risk Assessment Done? Y/N: Yes Risk Level: Moderate Given or contraindicated: Unfractionated heparin SQ Additional Copies To Adolph Aldridge M.D.
[2017-09-13] MEDS ORDERED: SODIUM CHLORIDE 0.9% 1000ML 1,000 ML IV SCH (20:30)
[2017-09-13] MEDS: HEPARIN SOD 5000 UNIT/0.5 ML CARP SQ SCH (20:51)
[2017-09-13] MEDS: CALCIUM CARBONATE 500 MG CHEWABLE PO SCH (20:52)
[2017-09-13] MEDS: LORAZEPAM 0.5 MG TAB PO PRN (22:25)
[2017-09-13] MEDS: TRAMADOL HCL 50 MG TAB PO PRN ×2 (22:26→23:27)
[2017-09-13] MEDS ORDERED: TRAMADOL HCL 50 MG TAB PO ONE (23:24)
[2017-09-13 23:30] VITALS: BP 97/64; PULSE 87; TEMP 36.8; O2SAT 96
[2017-09-13 23:49] VITALS: BP 114/74; PULSE 90; TEMP 36.8; Ht 167.6 cm; Wt 85.0 kg
[2017-09-13 23:51] VITALS: O2SAT 98
[2017-09-14] VITALS (14 sets, daily range): BP systolic 113–127; BP diastolic 71–83; PULSE 76–98; TEMP 36.4–37.1; O2SAT 95–100
[2017-09-14] MEDS ORDERED: TRAMADOL HCL 50 MG TAB PO ONE (02:02)
[2017-09-14] MEDS: HEPARIN SOD 5000 UNIT/0.5 ML CARP SQ SCH ×3 (04:27→20:20)
[2017-09-14] MEDS: CALCIUM ACETATE 667MG GELCAP PO SCH ×3 (06:54→17:10)
[2017-09-14] MEDS: CALCITRIOL 0.25 MCG CAP PO SCH (06:55)
[2017-09-14] MEDS: FAMOTIDINE 20 MG TAB PO SCH (06:55)
[2017-09-14] MEDS: TRAMADOL HCL 50 MG TAB PO PRN ×3 (06:56→17:09)
[2017-09-14 07:11] LABS: HEMOGLOBIN 9.6 g/dL (12.0-16.0); MEAN CORPUSCULAR HEMOGLOBIN 34.3 pg (25-34); MEAN CORPUSCULAR HGB CONC 34.3 g/dl (32-36); MEAN PLATELET VOLUME 9.1 fL (7.4-10.4); PLATELET COUNT 143 K/uL (130-400); RED CELL DISTRIBUTION WIDTH CV 16.6 % (11.5-14.5); RED CELL DISTRIBUTION WIDTH SD 59.5 fL (36.4-46.3); WHITE BLOOD COUNT 8.01 K/uL (4.8-10.8)
[2017-09-14 08:03] LABS: CALCIUM 8.4 mg/dl (8.5-10.1); POTASSIUM 2.8 mmol/L (3.5-5.1)
[2017-09-14 08:10] LABS: CREATININE 14.4 mg/dl (0.60-1.20); PHOSPHORUS 8.5 mg/dl (2.5-4.9)
[2017-09-14] MEDS ORDERED: POTASSIUM CHLORIDE 20 MEQ TABCR PO STA (09:26)
[2017-09-14] MEDS ORDERED: SODIUM CHLORIDE 0.65% NA SOLN 45 ML (OCEAN) ONE (11:37)
--- NOTE | 2017-09-14 12:14 | Gastrointestinal Consultation ---
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 She reports chronic intermittent diarrhea which interchanges with constipation hence GI is consulted. She denies any abdominal pain but has occasional discomfort during dialysis. Her diarrhea is soft stool, few BM a day but often gets constipated. No nausea, vomiting, weight loss, melena or bleeding per rectum. No prior colonoscopy. Reports her Father had Crohn's disease. She had 2 episodes of pancreatitis in the past and EUS did not show any pathology, she is s/p Cholecystectomy. Past Medical/Surgical History Medical Problems: (1) Abdominal pain Status: Acute (2) Acute chest pain Status: Acute (3) Acute electrocardiogram changes Status: Acute (4) Acute hyperkalemia Status: Acute (5) Altered mental status Status: Acute (6) Anemia Status: Acute (7) ARF (acute renal failure) Status: Acute (8) Arm pain, left Status: Acute (9) Arm pain, left Status: Acute (10) Back pain Status: Acute (11) Cellulitis Status: Acute (12) Cellulitis of left upper extremity Status: Acute (13) Central abdominal pain Status: Acute (14) Chest wall pain Status: Acute (15) Cholecystitis Status: Acute (16) Complication of vascular dialysis catheter Status: Acute (17) Complications, dialysis, catheter, mechanical Status: Acute (18) Costochondritis Status: Acute (19) Cough Status: Acute (20) Dehydration Status: Acute (21) Dehydration Status: Acute (22) Dependence on renal dialysis Status: Acute (23) Diarrhea Status: Acute (24) Dizziness Status: Acute (25) Dizziness Status: Acute (26) Dizziness Status: Acute (27) Dizziness Status: Acute (28) Elevated troponin Status: Acute (29) End stage renal disease Status: Acute (30) End stage renal disease Status: Acute (31) Epigastric abdominal pain Status: Acute (32) ESRD (end stage renal disease) on dialysis Status: Acute (33) Headache Status: Acute (34) Headache Status: Acute (35) Hemorrhagic ovarian cyst Status: Acute (36) Hypertension Status: Acute (37) Hypocalcemia Status: Acute (38) Hypocalcemia Permanent Comment: She has severe Critical hypocalcemia from missing Dialysis for so long. Will give 4gm ivpb now. with dialysis it should improve further. Status: Acute (39) Hypokalemia Status: Acute (40) Hypotension Status: Acute (41) Intra-abdominal free air of unknown etiology Status: Acute (42) Lower abdominal pain Status: Acute (43) Nausea Status: Acute (44) Non-cardiac chest pain Status: Acute (45) Obesity Status: Acute (46) Orthostatic dizziness Status: Acute (47) Otitis media Status: Acute (48) Pancreatitis Status: Acute (49) Peritoneal dialysis catheter in place Status: Acute (50) Precordial chest pain Status: Acute (51) Presence of peritoneal dialysis catheter Status: Acute (52) Pulmonary emboli Status: Acute (53) Renal failure Status: Acute (54) Renal failure Permanent Comment: She has ESRD but is super non complaint with Dialysis. has missed dialysis for more than 2 weeks. As a result has lot of biochemical indicators of missing Dialysis--very lot Hgb, very low Calcium and very high BUn and creatinine. Because her BUN and creat is so high she is at risk for Dysequlibrium syndrome. So to avoid that will have to slow incremental dialysis. Will do 2hrs today, low qb dialysis. tomorrow will be 3 hrs and then Saturday will be 4 hrs. She is c/o Pain at the CVC site but it looks fine on exam and the Imaging. Will know further with Dialysis. I am surprised that despite such low Ca++ she still looks fine and no Symptoms. Status: Chronic (55) Renal failure Status: Acute (56) Right flank pain Status: Acute (57) Right-sided chest pain Status: Acute (58) Right-sided chest pain Status: Acute (59) Ruptured ovarian cyst Status: Acute (60) Severe anemia Status: Acute (61) Sinusitis Status: Acute (62) Sinusitis Status: Acute (63) Sinusitis Status: Acute (64) Substernal chest pain Status: Acute (65) Substernal chest pain Status: Acute (66) Syncope Status: Acute (67) URI (upper respiratory infection) Status: Acute (68) UTI (urinary tract infection) Status: Acute (69) Volume overload Status: Acute Past Medical History: as above Past Surgical History: Kidney transplant Family History Blood clots FATHER BROTHER Crohn's disease FATHER Diabetes mellitus MOTHER Gallbladder disease Heart disease Hypertension SISTER Lung disease Social History Smoking Status: Current Every Day Smoker Alcohol Use: none Drug Use: none Marital Status: in relationship Housing Status: lives with family Occupation Status: unemployed Allergies Coded Allergies: Cefaclor (Verified Allergy, Intermediate, Rash, 09/06/17) Reported by PT. Latex1 -Allergic Contact Dermititis (Verified Allergy, Mild, RASH, 09/14/17 ) Amoxicillin (Verified Adverse Reaction, Mild, VOMITING, 09/06/17) Clavulanic Acid (Verified Adverse Reaction, Mild, VOMITING, 09/06/17) Current Medications Home Meds and Scripts Medications Dose Route/Sig Max Daily Dose Days Date Category Dose Instructions Tramadol HCl 50 Mg Tab 1 Tab PO Q6 PRN 09/06/17 Reported Sumatriptan Succinate 50 Mg Tab 1 Tab PO UD PRN 09/06/17 Reported Take 1 tab po at onset of migraine and 1 tablet after 2 hrs if continued GARNETT. No more than 2 tablets in 24 hrs Lorazepam 0.5 Mg Tab 1 Tab PO HS PRN 09/06/17 Reported Tums (Calcium Carbonate) 500 Mg Chew 3 Tabs PO HS 07/29/17 Reported Trintellix (Vortioxetine HBr) 5 Mg Tab 5 Mg PO QAM 06/11/17 Reported Calcitriol 0.5 Mcg Cap 2 Cap PO QAM 04/13/17 Reported Pepcid (Famotidine) 40 Mg Tab 40 Mg PO QAM 01/22/17 Reported Phoslo 667 Mg (Calcium Acetate) 667 Mg Cap 2 Cap PO WITH SNACKS 12/02/16 Reported TAKE 2 CAPSULES WITH SNACKS Phoslo 667 Mg (Calcium Acetate) 667 Mg Cap 3 Cap PO WM 11/18/16 Reported Ventolin Hfa (Albuterol) 200 Puffs/10692 Mcg Aers 2 Puffs INH Q4H PRN 07/05/16 Reported Review of Systems Constitutional: No fever, No chills Eyes: No worsening of vision, No eye pain ENT: No hearing loss, No unusual epistaxis Respiratory: No cough, No sputum Cardiac: No chest pain, No orthopnea Abdomen: + see HPI Musculoskeletal: No joint pain Neuro: No weakness, No vertigo Psych: No anxiety Heme: No abnormal bleeding/bruising, No clotting problems Endo: No fatigue Skin: No rash, No itch Physical Exam Date Time Temp Pulse Resp B/P (MAP) Pulse Ox O2 Delivery O2 Flow Rate FiO2 09/14/17 08:00 98 Room Air 09/14/17 08:00 36.9 76 18 127/76 (93) 99 Room Air 09/14/17 04:11 36.4 89 18 113/71 (85) 97 Room Air 09/14/17 04:00 98 Room Air 09/14/17 00:58 36.8 90 114/74 (87) 09/14/17 00:18 96 Room Air 09/13/17 23:51 98 Room Air 09/13/17 23:49 36.8 90 22 114/74 09/13/17 23:30 36.8 87 18 97/64 (75) 96 Room Air 09/13/17 18:34 100 22 91/74 98 Room Air 09/13/17 16:59 99 16 106/65 96 Room Air 09/13/17 16:28 103 09/13/17 16:00 Room Air 09/13/17 15:59 104 16 95/65 96 Room Air 09/13/17 15:31 36.8 115 20 79/60 98 Room Air General Appearance: no apparent distress Eyes: PERRL, EOMI ENT: normal ENT inspection Neck: supple, no JVD Respiratory/Chest: lungs clear, normal breath sounds Cardiovascular: regular rate, rhythm, no edema Abdomen: normal bowel sounds, non tender, soft Neurologic/Psych: alert, oriented x 3 Laboratory Results Last 24 Hours Test 09/13/17 16:24 09/13/17 20:36 09/13/17 22:50 09/14/17 06:39 White Blood Count 10.54 K/uL 8.01 K/uL Red Blood Count 3.29 M/uL 2.80 M/uL Hemoglobin 11.3 g/dL 9.6 g/dL Hematocrit 32.9 % 28.0 % Mean Corpuscular Volume 100.0 fL 100.0 fL Mean Corpuscular Hemoglobin 34.3 pg 34.3 pg Mean Corpuscular Hemoglobin Concent 34.3 g/dl 34.3 g/dl Platelet Count 199 K/uL 143 K/uL Mean Platelet Volume 9.6 fL 9.1 fL Neutrophils (%) (Auto) 81.1 % Lymphocytes (%) (Auto) 12.7 % Monocytes (%) (Auto) 4.6 % Eosinophils (%) (Auto) 1.0 % Basophils (%) (Auto) 0.2 % Neutrophils # (Auto) 8.54 K/uL Lymphocytes # (Auto) 1.34 K/uL Monocytes # (Auto) 0.49 K/uL Eosinophils # (Auto) 0.11 K/uL Basophils # (Auto) 0.02 K/uL RDW Standard Deviation 60.5 fL 59.5 fL RDW Coefficient of Variation 17.0 % 16.6 % Immature Granulocyte % (Auto) 0.4 % Immature Granulocyte # (Auto) 0.04 K/uL Prothrombin Time 10.2 SECONDS Prothromb Time International Ratio 1.0 Activated Partial Thromboplast Time 23.8 SECONDS Partial Thromboplastin Ratio 0.9 Sodium Level 130 mmol/L 133 mmol/L Potassium Level 3.2 mmol/L 2.8 mmol/L Chloride Level 88 mmol/L 95 mmol/L Carbon Dioxide Level 24 mmol/L 24 mmol/L Anion Gap 18.0 mmol/L 14.0 mmol/L Blood Urea Nitrogen 59 mg/dl 59 mg/dl Creatinine 14.80 mg/dl 14.40 mg/dl Est Creatinine Clear Calc Drug Dose 5.8 ml/min 6.2 ml/min Estimated GFR () 3.3 3.5 Estimated GFR (Non- 2.9 3.0 BUN/Creatinine Ratio 4.0 4.1 Random Glucose 126 mg/dl 86 mg/dl Lactic Acid Level 1.3 mmol/L Calcium Level 9.3 mg/dl 8.4 mg/dl Magnesium Level 2.4 mg/dl Total Bilirubin 0.3 mg/dl Aspartate Amino Transf (AST/SGOT) 21 U/L Alanine Aminotransferase (ALT/SGPT) 28 U/L Alkaline Phosphatase 86 U/L Troponin I 0.018 ng/ml Total Protein 8.0 gm/dl Albumin 3.6 gm/dl Globulin 4.4 gm/dl Albumin/Globulin Ratio 0.8 Thyroid Stimulating Hormone (TSH) 0.649 uIu/ml Bedside Glucose 107 mg/dl Peritoneal Fluid Color COLORLESS Peritoneal Fluid Appearance CLEAR Peritoneal Fluid WBC 17 /uL Peritoneal Fluid RBC < 3000 /uL Peritoneal Fld Mononuclear WBCs (%) 82.4 % Peritoneal Fld Polynuclear WBCs (%) 17.6 % Phosphorus Level 8.5 mg/dl Hepatitis B Surface Antigen NEG Hepatitis B Surface Antibody NEG Test 09/14/17 07:16 09/14/17 11:29 Bedside Glucose 101 mg/dl 106 mg/dl Impression Patient is a 31 year old female with ESRD on PD, admitted with Hypotension and dizziness. GI consulted for chronic intermittent diarrhea. No GI bleeding. No clinical evidence of infectious GI process. Her symptoms are more suggestive of IBS-M. In view of her FHx of IBD she will need elective endoscopic evaluation. Plan Check for C.diff. If stool work up is negative can start antidiarrheal. Diet as tolerated. Needs colonoscopy electively to be arranged as outpatient in next few weeks. Recall if any questions, GI will sign off.
--- NOTE | 2017-09-14 14:29 | Progress Note ---
Medicine Progress Note Date & Time of Visit: Sep 14, 2017 at 14:02. Subjective Pt was seen and examined Lying in bed comfortable watching video on her cell Pt said that she kept having low BP at home She said that she has been using her right peritoneal dialysis bag Pt said that she is having some tenderness around her right maxillofacial area Denies any running nose, sore throat, fever, chest pain, palpitation, SOB and dizziness Objective Last 8 Hrs Date Time Temp Pulse Resp B/P (MAP) Pulse Ox O2 Delivery O2 Flow Rate FiO2 09/14/17 12:42 36.8 86 18 121/79 (93) 95 09/14/17 11:20 36.8 86 18 121/79 (93) 09/14/17 08:00 98 Room Air 09/14/17 08:00 36.9 76 18 127/76 (93) 99 Room Air Physical Exam: General- No acute distress Head- atraumatic Eyes- PERRL, EOMI ENT- No swelling of the turbinates Neck- supple, no JVD Lungs- No wheezing Heart- regular rhythm Abdomen- normal bowel sounds, soft Extremities- no pretibial edema, no calf tenderness Neuro- alert, oriented x 3; PERRL, EOMI Skin- warm & dry Laboratory Results: Last 24 Hours Test 09/13/17 16:24 09/13/17 20:36 09/13/17 22:50 09/14/17 06:39 White Blood Count 10.54 K/uL 8.01 K/uL Red Blood Count 3.29 M/uL 2.80 M/uL Hemoglobin 11.3 g/dL 9.6 g/dL Hematocrit 32.9 % 28.0 % Mean Corpuscular Volume 100.0 fL 100.0 fL Mean Corpuscular Hemoglobin 34.3 pg 34.3 pg Mean Corpuscular Hemoglobin Concent 34.3 g/dl 34.3 g/dl Platelet Count 199 K/uL 143 K/uL Mean Platelet Volume 9.6 fL 9.1 fL Neutrophils (%) (Auto) 81.1 % Lymphocytes (%) (Auto) 12.7 % Monocytes (%) (Auto) 4.6 % Eosinophils (%) (Auto) 1.0 % Basophils (%) (Auto) 0.2 % Neutrophils # (Auto) 8.54 K/uL Lymphocytes # (Auto) 1.34 K/uL Monocytes # (Auto) 0.49 K/uL Eosinophils # (Auto) 0.11 K/uL Basophils # (Auto) 0.02 K/uL RDW Standard Deviation 60.5 fL 59.5 fL RDW Coefficient of Variation 17.0 % 16.6 % Immature Granulocyte % (Auto) 0.4 % Immature Granulocyte # (Auto) 0.04 K/uL Prothrombin Time 10.2 SECONDS Prothromb Time International Ratio 1.0 Activated Partial Thromboplast Time 23.8 SECONDS Partial Thromboplastin Ratio 0.9 Sodium Level 130 mmol/L 133 mmol/L Potassium Level 3.2 mmol/L 2.8 mmol/L Chloride Level 88 mmol/L 95 mmol/L Carbon Dioxide Level 24 mmol/L 24 mmol/L Anion Gap 18.0 mmol/L 14.0 mmol/L Blood Urea Nitrogen 59 mg/dl 59 mg/dl Creatinine 14.80 mg/dl 14.40 mg/dl Est Creatinine Clear Calc Drug Dose 5.8 ml/min 6.2 ml/min Estimated GFR () 3.3 3.5 Estimated GFR (Non- 2.9 3.0 BUN/Creatinine Ratio 4.0 4.1 Random Glucose 126 mg/dl 86 mg/dl Lactic Acid Level 1.3 mmol/L Calcium Level 9.3 mg/dl 8.4 mg/dl Magnesium Level 2.4 mg/dl Total Bilirubin 0.3 mg/dl Aspartate Amino Transf (AST/SGOT) 21 U/L Alanine Aminotransferase (ALT/SGPT) 28 U/L Alkaline Phosphatase 86 U/L Troponin I 0.018 ng/ml Total Protein 8.0 gm/dl Albumin 3.6 gm/dl Globulin 4.4 gm/dl Albumin/Globulin Ratio 0.8 Thyroid Stimulating Hormone (TSH) 0.649 uIu/ml Bedside Glucose 107 mg/dl Peritoneal Fluid Color COLORLESS Peritoneal Fluid Appearance CLEAR Peritoneal Fluid WBC 17 /uL Peritoneal Fluid RBC < 3000 /uL Peritoneal Fld Mononuclear WBCs (%) 82.4 % Peritoneal Fld Polynuclear WBCs (%) 17.6 % Phosphorus Level 8.5 mg/dl Hepatitis B Surface Antigen NEG Hepatitis B Surface Antibody NEG Test 09/14/17 07:16 09/14/17 11:29 Bedside Glucose 101 mg/dl 106 mg/dl Date/Time Source Procedure Growth Status 09/13/17 16:33 Blood Blood Culture Pending Received 09/13/17 16:24 Blood Blood Culture Pending Received 09/13/17 22:50 Peritoneal Fluid Gram Stain - Final Resulted 09/13/17 22:50 Peritoneal Fluid Bacterial Culture Pending Resulted Assessment & Plan HYPOTENSION Present with low BP on admission 79/60 associated with dizziness Has been having multiple admission due to low BP Possible due to too much fluid removal during PD Pt will be a good candidate for PD due to multiple admission for low BP Received 750ml in the ER BP has been stable Not on any BP med CXR negative Blood cx pending Continue monitor in tele Chronic Diarrhea Possible related to IBS Has not had any BM since last night Stool for C-Diff did not collect because pt has not had any BM GI consulted Recommended outpatient elective colonoscopy ESRD on PD continue phoslo, calcitriol nephrology on board Monitor electrolytes Hypokalemia K replaced by nephrology Continue monitor BMP Maxillofacial tenderness Starting on nasal saline On tramadol for pain If pain persists, will get and xray HX MIGRAINE Stable DEPRESSION Continue SSRI DVT PROPHYLAXIS heparin SQ DISPOSITION Continue monitor in tele Will discharge tomorrow Current Inpatient Medications: Current Inpatient Medications Medications (Trade) Dose Ordered Sig/Sachin Route Start Time Stop Time Status Last Admin Dose Admin Heparin Sodium (Porcine) (Heparin Sq 5000 Unit/0.5ml) 5,000 unit Q8 SQ 09/13/17 22:00 10/13/17 21:59 Acetaminophen (Tylenol Tab) 650 mg Q4H PRN PO 09/13/17 18:30 10/13/17 18:29 Ondansetron HCl (Zofran Inj) 4 mg Q6H PRN IV 09/13/17 18:30 10/13/17 18:29 Albuterol (Ventolin Hfa Inhaler) 2 puffs Q4H PRN INH 09/13/17 18:45 10/13/17 18:44 Calcium Carbonate (Tums Chew Tab) 1,500 mg HS PO 09/13/17 21:00 10/13/17 20:59 09/13/17 20:52 1,500 MG Famotidine (Pepcid Tab) 40 mg QAM PO 09/14/17 09:00 10/14/17 08:59 09/14/17 06:55 40 MG Lorazepam (Ativan Tab) 0.5 mg HS PRN PO 09/13/17 18:45 10/13/17 18:44 09/13/17 22:25 0.5 MG Sumatriptan Succinate (Imitrex Tab) 50 mg DAILY PRN PO 09/13/17 18:45 10/13/17 18:44 Tramadol HCl (Ultram Tab) 50 mg Q6 PRN PO 09/13/17 18:45 10/13/17 18:44 09/14/17 11:44 50 MG Calcitriol (Rocaltrol Cap) 1 mcg QAM PO 09/14/17 09:00 10/14/17 08:59 09/14/17 06:55 1 MCG Miscellaneous Information (Order Awaiting Action) 1 ea QS N/A 09/14/17 00:00 10/14/17 00:00 09/14/17 06:54 1 EA Calcium Acetate (Phoslo Cap) 1,334 mg BID PRN PO 09/13/17 18:45 10/13/17 18:44 Calcium Acetate (Phoslo Cap) 2,001 mg TIDM PO 09/14/17 07:30 10/14/17 07:29 09/14/17 06:54 2,001 MG Miscellaneous (Iv Fluids Completed) 1 ea PRN PRN N/A 09/13/17 19:45 09/13/18 19:44 Potassium Chloride (Klor-Con Tab) 20 meq BID PO 09/14/17 21:00 10/14/17 20:59
[2017-09-14] MEDS ORDERED: OXYCODONE HCL IR 5 MG TAB (IMMEDIATE RELEASE) ONE (14:58)
[2017-09-14] MEDS ORDERED: NURSING VERBAL MED ORDER ONE ×2 (15:15→19:15)
--- NOTE | 2017-09-14 16:21 | Nephrology Consultation ---
Nephrology Consultation Date of Consultation: Sep 14, 2017. Attending Physician: Dr Lutz Requesting Physician: Dr Lutz Reason for Consultation: PD patient with symptomatic hypotension History of Present Illness 31 year old female w/ ESRD on PD admitted with symptomatic hypotension. Other PMH includes chronic diarrhea, active tobacco abuse, diet controlled dm, migraines. She has had no bm since arrival. Denies issues w/ PD exchanges or supplies at home >> states she is using rx which would do least fluid removal. Her bp on presentation here yesterday were in 70s; improved to 110-120s systolic with hydration overnight and gentle / minimal fluid removal w/ PD. We obtained peritoneal fluid cultures on presentation last evening which ruled out peritonitis. no fevers; has improved N; no emesis. states she is taking minimal po currently including today. she is anuric. Past Medical/Surgical History -FSGS s/p failed kidney transplant now ESRD on peritoneal dialysis -DM -migraines -recent issues w/ hypotension including admission here for syncope earlier this month -chronic intermittent diarrhea -pancreatitis x 2 s/p cholecystectomy -active tobacco abuse Family History Blood clots FATHER BROTHER Crohn's disease FATHER Diabetes mellitus MOTHER Gallbladder disease Heart disease Hypertension SISTER Lung disease Social History Smoking Status: Current Every Day Smoker Alcohol Use: none Drug Use: none Marital Status: in relationship Housing Status: lives with family Occupation Status: unemployed Allergies Coded Allergies: Cefaclor (Verified Allergy, Intermediate, Rash, 09/06/17) Reported by PT. Latex1 -Allergic Contact Dermititis (Verified Allergy, Mild, RASH, 09/14/17 ) Amoxicillin (Verified Adverse Reaction, Mild, VOMITING, 09/06/17) Clavulanic Acid (Verified Adverse Reaction, Mild, VOMITING, 09/06/17) Medications Current Inpatient Medications Medications (Trade) Dose Ordered Sig/Sachin Route Start Time Stop Time Status Last Admin Dose Admin Heparin Sodium (Porcine) (Heparin Sq 5000 Unit/0.5ml) 5,000 unit Q8 SQ 09/13/17 22:00 10/13/17 21:59 Acetaminophen (Tylenol Tab) 650 mg Q4H PRN PO 09/13/17 18:30 10/13/17 18:29 Ondansetron HCl (Zofran Inj) 4 mg Q6H PRN IV 09/13/17 18:30 10/13/17 18:29 Albuterol (Ventolin Hfa Inhaler) 2 puffs Q4H PRN INH 09/13/17 18:45 10/13/17 18:44 Calcium Carbonate (Tums Chew Tab) 1,500 mg HS PO 09/13/17 21:00 10/13/17 20:59 09/13/17 20:52 1,500 MG Famotidine (Pepcid Tab) 40 mg QAM PO 09/14/17 09:00 10/14/17 08:59 09/14/17 06:55 40 MG Lorazepam (Ativan Tab) 0.5 mg HS PRN PO 09/13/17 18:45 10/13/17 18:44 09/13/17 22:25 0.5 MG Sumatriptan Succinate (Imitrex Tab) 50 mg DAILY PRN PO 09/13/17 18:45 10/13/17 18:44 Tramadol HCl (Ultram Tab) 50 mg Q6 PRN PO 09/13/17 18:45 10/13/17 18:44 09/14/17 06:56 50 MG Calcitriol (Rocaltrol Cap) 1 mcg QAM PO 09/14/17 09:00 10/14/17 08:59 09/14/17 06:55 1 MCG Miscellaneous Information (Order Awaiting Action) 1 ea QS N/A 09/14/17 00:00 10/14/17 00:00 09/14/17 06:54 1 EA Calcium Acetate (Phoslo Cap) 1,334 mg BID PRN PO 09/13/17 18:45 10/13/17 18:44 Calcium Acetate (Phoslo Cap) 2,001 mg TIDM PO 09/14/17 07:30 10/14/17 07:29 09/14/17 06:54 2,001 MG Miscellaneous (Iv Fluids Completed) 1 ea PRN PRN N/A 09/13/17 19:45 09/13/18 19:44 Sodium Chloride 1,000 ml @ 50 mls/hr Q20H IV 09/13/17 20:30 10/13/17 20:29 09/13/17 20:52 50 MLS/HR Home Meds and Scripts Medications Dose Route/Sig Max Daily Dose Days Date Category Dose Instructions Tramadol HCl 50 Mg Tab 1 Tab PO Q6 PRN 09/06/17 Reported Sumatriptan Succinate 50 Mg Tab 1 Tab PO UD PRN 09/06/17 Reported Take 1 tab po at onset of migraine and 1 tablet after 2 hrs if continued GARNETT. No more than 2 tablets in 24 hrs Lorazepam 0.5 Mg Tab 1 Tab PO HS PRN 09/06/17 Reported Tums (Calcium Carbonate) 500 Mg Chew 3 Tabs PO HS 07/29/17 Reported Trintellix (Vortioxetine HBr) 5 Mg Tab 5 Mg PO QAM 06/11/17 Reported Calcitriol 0.5 Mcg Cap 2 Cap PO QAM 04/13/17 Reported Pepcid (Famotidine) 40 Mg Tab 40 Mg PO QAM 01/22/17 Reported Phoslo 667 Mg (Calcium Acetate) 667 Mg Cap 2 Cap PO WITH SNACKS 12/02/16 Reported TAKE 2 CAPSULES WITH SNACKS Phoslo 667 Mg (Calcium Acetate) 667 Mg Cap 3 Cap PO WM 11/18/16 Reported Ventolin Hfa (Albuterol) 200 Puffs/06922 Mcg Aers 2 Puffs INH Q4H PRN 07/05/16 Reported Review of Systems Constitutional: + weakness, + fatigue, No fever Eyes: No worsening of vision ENT: + problem reported (c/o severe R maxillary pain - sinuses per her more in tooth region on eval), No hearing loss Respiratory: No cough, No shortness of breath, No dyspnea on exertion, No dyspnea at rest Cardiac: No chest pain, No edema, No palpitations Abdomen: + see HPI Musculoskeletal: No joint pain, No muscle pain Female : + see HPI Neuro: + weakness, No memory loss, No balance problems Psych: + anxiety, No depression symptoms Heme: No abnormal bleeding/bruising, No clotting problems Endo: + fatigue Skin: + rash (papular rash present x mos and pruritic; has derm appt) Physical Exam Date Time Temp Pulse Resp B/P (MAP) Pulse Ox O2 Delivery O2 Flow Rate FiO2 09/14/17 08:00 98 Room Air 09/14/17 08:00 36.9 76 18 127/76 (93) 99 Room Air 09/14/17 04:11 36.4 89 18 113/71 (85) 97 Room Air 09/14/17 04:00 98 Room Air 09/14/17 00:58 36.8 90 114/74 (87) 09/14/17 00:18 96 Room Air 09/13/17 23:51 98 Room Air 09/13/17 23:49 36.8 90 22 114/74 09/13/17 23:30 36.8 87 18 97/64 (75) 96 Room Air 09/13/17 18:34 100 22 91/74 98 Room Air 09/13/17 16:59 99 16 106/65 96 Room Air 09/13/17 16:28 103 09/13/17 16:00 Room Air 09/13/17 15:59 104 16 95/65 96 Room Air 09/13/17 15:31 36.8 115 20 79/60 98 Room Air General Appearance: WD/WN, no apparent distress, + pertinent finding ( maneuvers readily for exam on RA) Eyes: EOMI ENT: normal ENT inspection, + pertinent finding (holding R maxillary area) Neck: supple Respiratory/Chest: lungs clear, normal breath sounds Cardiovascular: regular rate, rhythm, no edema Abdomen: normal bowel sounds, non tender, soft, + pertinent finding (pd cath exit site pristine; failed renal txplt NT; no bee) Extremities: no pedal edema Neurologic/Psych: alert, normal mood/affect, oriented x 3 Skin: no jaundice, warm/dry, + rash (papular pruritic BL legs most prominently) Diagnostics Last 24 Hours Test 09/13/17 16:24 09/13/17 20:36 09/13/17 22:50 09/14/17 06:39 White Blood Count 10.54 K/uL 8.01 K/uL Red Blood Count 3.29 M/uL 2.80 M/uL Hemoglobin 11.3 g/dL 9.6 g/dL Hematocrit 32.9 % 28.0 % Mean Corpuscular Volume 100.0 fL 100.0 fL Mean Corpuscular Hemoglobin 34.3 pg 34.3 pg Mean Corpuscular Hemoglobin Concent 34.3 g/dl 34.3 g/dl Platelet Count 199 K/uL 143 K/uL Mean Platelet Volume 9.6 fL 9.1 fL Neutrophils (%) (Auto) 81.1 % Lymphocytes (%) (Auto) 12.7 % Monocytes (%) (Auto) 4.6 % Eosinophils (%) (Auto) 1.0 % Basophils (%) (Auto) 0.2 % Neutrophils # (Auto) 8.54 K/uL Lymphocytes # (Auto) 1.34 K/uL Monocytes # (Auto) 0.49 K/uL Eosinophils # (Auto) 0.11 K/uL Basophils # (Auto) 0.02 K/uL RDW Standard Deviation 60.5 fL 59.5 fL RDW Coefficient of Variation 17.0 % 16.6 % Immature Granulocyte % (Auto) 0.4 % Immature Granulocyte # (Auto) 0.04 K/uL Prothrombin Time 10.2 SECONDS Prothromb Time International Ratio 1.0 Activated Partial Thromboplast Time 23.8 SECONDS Partial Thromboplastin Ratio 0.9 Sodium Level 130 mmol/L 133 mmol/L Potassium Level 3.2 mmol/L 2.8 mmol/L Chloride Level 88 mmol/L 95 mmol/L Carbon Dioxide Level 24 mmol/L 24 mmol/L Anion Gap 18.0 mmol/L 14.0 mmol/L Blood Urea Nitrogen 59 mg/dl 59 mg/dl Creatinine 14.80 mg/dl 14.40 mg/dl Est Creatinine Clear Calc Drug Dose 5.8 ml/min 6.2 ml/min Estimated GFR () 3.3 3.5 Estimated GFR (Non- 2.9 3.0 BUN/Creatinine Ratio 4.0 4.1 Random Glucose 126 mg/dl 86 mg/dl Lactic Acid Level 1.3 mmol/L Calcium Level 9.3 mg/dl 8.4 mg/dl Magnesium Level 2.4 mg/dl Total Bilirubin 0.3 mg/dl Aspartate Amino Transf (AST/SGOT) 21 U/L Alanine Aminotransferase (ALT/SGPT) 28 U/L Alkaline Phosphatase 86 U/L Troponin I 0.018 ng/ml Total Protein 8.0 gm/dl Albumin 3.6 gm/dl Globulin 4.4 gm/dl Albumin/Globulin Ratio 0.8 Thyroid Stimulating Hormone (TSH) 0.649 uIu/ml Bedside Glucose 107 mg/dl Peritoneal Fluid Color COLORLESS Peritoneal Fluid Appearance CLEAR Peritoneal Fluid WBC 17 /uL Peritoneal Fluid RBC < 3000 /uL Peritoneal Fld Mononuclear WBCs (%) 82.4 % Peritoneal Fld Polynuclear WBCs (%) 17.6 % Phosphorus Level 8.5 mg/dl Hepatitis B Surface Antigen NEG Hepatitis B Surface Antibody NEG Test 09/14/17 07:16 Bedside Glucose 101 mg/dl Diagnostic Radiology: cxr no acute process Assessment & Plan 31 y/o F w/ ESRD after failed renal txplt on PD presented with symptomatic hypotension (presenting sbp in 70s) and diarrhea. Fluid studies obtained at admission show no peritonitis. She has acceptable blood pressures today after NS boluses last evening and low standing rate overnight. She had routine PD last evening w/ prescription designed to minimize fluid removal. -will stop IVF this am -will arrange for dialysis again tonight on cycler >> longer tx -monitor bp through day but appears to be holding off of IVF -will give po K 60 mEq x one now and then standing 20 mEq bid while in house >> w/ K 2.8 this am, will replete as above and recheck bmp later today as well < > order in -daily bmp/cbc -primary service aware of pt facial pain -f/u GI recommendations Appreciate consult; will follow with you. Care coordinated w/ Dr. Lutz
[2017-09-14 16:29] LABS: CALCIUM 8.9 mg/dl (8.5-10.1); CREATININE 13.9 mg/dl (0.60-1.20)
[2017-09-14 16:58] LABS: POTASSIUM 2.8 mmol/L (3.5-5.1)
[2017-09-14] MEDS ORDERED: POTASSIUM CHLORIDE 10 MEQ TABCR PO STA (17:30)
[2017-09-14] MEDS ORDERED: DEXAMETHASONE CONC SOLN 0.078 MG, NYSTATIN SUSP 0.625 ML, DiphenhydrAMINE HCL SYRUP 6.2... PO PRN ×5 (19:30)
[2017-09-14] MEDS: POTASSIUM CHLORIDE 20 MEQ TABCR PO SCH (20:18)
[2017-09-14] MEDS: CALCIUM CARBONATE 500 MG CHEWABLE PO SCH (20:19)
[2017-09-14] MEDS: LORAZEPAM 0.5 MG TAB PO PRN (20:19)
[2017-09-15] VITALS (9 sets, daily range): BP systolic 107–142; BP diastolic 62–70; PULSE 86–104; TEMP 36.8–36.9; O2SAT 95–98
[2017-09-15] MEDS: TRAMADOL HCL 50 MG TAB PO PRN ×3 (00:26→11:21)
[2017-09-15] MEDS: ACETAMINOPHEN 325 MG TAB PO PRN ×3 (00:31→11:21)
[2017-09-15] MEDS: HEPARIN SOD 5000 UNIT/0.5 ML CARP SQ SCH (04:58)
[2017-09-15] MEDS: CALCIUM ACETATE 667MG GELCAP PO SCH ×2 (07:30→11:30)
[2017-09-15 08:17] LABS: CALCIUM 9.4 mg/dl (8.5-10.1); CREATININE 13.5 mg/dl (0.60-1.20); POTASSIUM 3.4 mmol/L (3.5-5.1)
[2017-09-15] MEDS: CALCITRIOL 0.25 MCG CAP PO SCH (08:54)
[2017-09-15] MEDS: POTASSIUM CHLORIDE 20 MEQ TABCR PO SCH (08:54)
[2017-09-15] MEDS: FAMOTIDINE 20 MG TAB PO SCH (08:54)
--- NOTE | 2017-09-15 12:30 | Nephrology Progress Note ---
Nephrology Progress Note Date of Service: Sep 15, 2017. Subjective c/o ongoing R anterior maxillary pain. PD going well; no further diarrhea or abd pain. for likely d/c today; seen on rounds 1130 approx Objective Date Time Temp Pulse Resp B/P (MAP) Pulse Ox O2 Delivery O2 Flow Rate FiO2 09/15/17 08:46 36.9 101 18 121/62 (81) 09/15/17 08:45 36.9 101 18 121/62 (81) 95 09/15/17 08:00 98 Room Air 09/15/17 04:00 98 Room Air 09/15/17 03:41 36.9 86 20 107/70 (82) 96 Room Air 09/15/17 00:00 98 Room Air 09/14/17 23:44 37.1 98 18 122/81 (95) 97 Room Air 09/14/17 20:00 98 Room Air 09/14/17 19:25 36.4 86 16 122/83 (96) 100 09/14/17 19:10 36.6 79 120/76 (91) 09/14/17 16:00 98 Room Air 09/14/17 15:52 36.6 79 16 120/76 (91) 97 Room Air 09/14/17 12:42 36.8 86 18 121/79 (93) 95 Physical Exam: General Appearance: WD/WN, no apparent distress, + pertinent finding ( maneuvers readily for exam on RA) Eyes: EOMI ENT: normal ENT inspection, + pertinent finding (holding R maxillary area) Neck: supple Respiratory/Chest: lungs clear, normal breath sounds Cardiovascular: regular rate, rhythm, no edema Abdomen: normal bowel sounds, non tender, soft, + pertinent finding (pd cath exit site still pristine; failed renal txplt NT; no bee) Extremities: no pedal edema Neurologic/Psych: alert, normal mood/affect, oriented x 3 Skin: no jaundice, warm/dry, + rash (papular pruritic BL legs ) Current Inpatient Medications Medications (Trade) Dose Ordered Sig/Sachin Route Start Time Stop Time Status Last Admin Dose Admin Heparin Sodium (Porcine) (Heparin Sq 5000 Unit/0.5ml) 5,000 unit Q8 SQ 09/13/17 22:00 10/13/17 21:59 Acetaminophen (Tylenol Tab) 650 mg Q4H PRN PO 09/13/17 18:30 10/13/17 18:29 09/15/17 11:21 650 MG Ondansetron HCl (Zofran Inj) 4 mg Q6H PRN IV 09/13/17 18:30 10/13/17 18:29 Albuterol (Ventolin Hfa Inhaler) 2 puffs Q4H PRN INH 09/13/17 18:45 10/13/17 18:44 Calcium Carbonate (Tums Chew Tab) 1,500 mg HS PO 09/13/17 21:00 10/13/17 20:59 09/14/17 20:19 1,500 MG Famotidine (Pepcid Tab) 40 mg QAM PO 09/14/17 09:00 10/14/17 08:59 09/15/17 08:54 40 MG Lorazepam (Ativan Tab) 0.5 mg HS PRN PO 09/13/17 18:45 10/13/17 18:44 09/14/17 20:19 0.5 MG Sumatriptan Succinate (Imitrex Tab) 50 mg DAILY PRN PO 09/13/17 18:45 10/13/17 18:44 Tramadol HCl (Ultram Tab) 50 mg Q6 PRN PO 09/13/17 18:45 10/13/17 18:44 09/15/17 11:21 50 MG Calcitriol (Rocaltrol Cap) 1 mcg QAM PO 09/14/17 09:00 10/14/17 08:59 09/15/17 08:54 1 MCG Miscellaneous Information (Order Awaiting Action) 1 ea QS N/A 09/14/17 00:00 10/14/17 00:00 09/14/17 20:20 1 EA Calcium Acetate (Phoslo Cap) 1,334 mg BID PRN PO 09/13/17 18:45 10/13/17 18:44 Calcium Acetate (Phoslo Cap) 2,001 mg TIDM PO 09/14/17 07:30 10/14/17 07:29 09/14/17 17:10 2,001 MG Miscellaneous (Iv Fluids Completed) 1 ea PRN PRN N/A 09/13/17 19:45 09/13/18 19:44 Potassium Chloride (Klor-Con Tab) 20 meq BID PO 09/14/17 21:00 10/14/17 20:59 09/15/17 08:54 20 MEQ Dexamethasone/ Nystatin/ Diphenhydramine HCl/Sucrose/ Microcrystalline Cellulose/Barcode Q4H PRN PO 09/14/17 19:30 10/14/17 19:29 Last 24 Hours Test 09/14/17 15:53 09/14/17 16:22 09/14/17 20:31 09/15/17 06:22 Sodium Level 132 mmol/L 132 mmol/L Potassium Level 2.8 mmol/L 3.4 mmol/L Chloride Level 94 mmol/L 96 mmol/L Carbon Dioxide Level 25 mmol/L 22 mmol/L Anion Gap 13.0 mmol/L 15.0 mmol/L Blood Urea Nitrogen 58 mg/dl 52 mg/dl Creatinine 13.90 mg/dl 13.50 mg/dl Est Creatinine Clear Calc Drug Dose 6.3 ml/min 6.5 ml/min Estimated GFR () 3.6 3.7 Estimated GFR (Non- 3.1 3.2 BUN/Creatinine Ratio 4.1 3.8 Random Glucose 78 mg/dl 98 mg/dl Calcium Level 8.9 mg/dl 9.4 mg/dl Bedside Glucose 83 mg/dl 125 mg/dl Test 09/15/17 07:05 09/15/17 11:26 Bedside Glucose 108 mg/dl 103 mg/dl Assessment & Plan 31 y/o F w/ ESRD after failed renal txplt on PD presented with symptomatic hypotension (presenting sbp in 70s) and diarrhea. Fluid studies obtained at admission show no peritonitis. She has acceptable blood pressures again after 36 hrs. She had routine PD last evening w/ prescription designed to minimize fluid removal >> retained 55 mL last evening -resume routine outpt peritoneal dialysis rx -recommend continuing standing 20 mEq bid at d/c -daily bmp/cbc -primary service aware of pt facial pain Appreciate consult; will follow with you.
--- NOTE | 2017-09-15 13:09 | Progress Note ---
Medicine Progress Note Date & Time of Visit: Sep 15, 2017 at 13:02. Subjective Pt was seen and examined Lying in bed with no distress Pt said that the pain around her mouth is much better She said that she had no bowel movement since admitted Denies any chest pain, palpitation, dizziness and SOB Objective Last 8 Hrs Date Time Temp Pulse Resp B/P (MAP) Pulse Ox O2 Delivery O2 Flow Rate FiO2 09/15/17 12:35 36.8 104 18 142/68 (92) 97 09/15/17 08:46 36.9 101 18 121/62 (81) 09/15/17 08:45 36.9 101 18 121/62 (81) 95 09/15/17 08:00 98 Room Air Physical Exam: General- No acute distress Head- atraumatic Eyes- PERRL, EOMI ENT- No swelling of the turbinates Neck- supple, no JVD Lungs- No wheezing Heart- regular rhythm Abdomen- normal bowel sounds, soft Extremities- no pretibial edema, no calf tenderness Neuro- alert, oriented x 3; PERRL, EOMI Skin- warm & dry Laboratory Results: Last 24 Hours Test 09/14/17 15:53 09/14/17 16:22 09/14/17 20:31 09/15/17 06:22 Sodium Level 132 mmol/L 132 mmol/L Potassium Level 2.8 mmol/L 3.4 mmol/L Chloride Level 94 mmol/L 96 mmol/L Carbon Dioxide Level 25 mmol/L 22 mmol/L Anion Gap 13.0 mmol/L 15.0 mmol/L Blood Urea Nitrogen 58 mg/dl 52 mg/dl Creatinine 13.90 mg/dl 13.50 mg/dl Est Creatinine Clear Calc Drug Dose 6.3 ml/min 6.5 ml/min Estimated GFR () 3.6 3.7 Estimated GFR (Non- 3.1 3.2 BUN/Creatinine Ratio 4.1 3.8 Random Glucose 78 mg/dl 98 mg/dl Calcium Level 8.9 mg/dl 9.4 mg/dl Bedside Glucose 83 mg/dl 125 mg/dl Test 09/15/17 07:05 09/15/17 11:26 Bedside Glucose 108 mg/dl 103 mg/dl Assessment & Plan HYPOTENSION Present with low BP on admission 79/60 associated with dizziness Has been having multiple admission due to low BP Possible due to too much fluid removal during PD Pt will be a good candidate for PD due to multiple admission for low BP Received 750ml in the ER BP has been stable Not on any BP med CXR negative Blood cx and peritoneal fluid no growth Resolved Chronic Diarrhea Possible related to IBS Has not had any BM since last night Stool for C-Diff did not collect because pt has not had any BM GI consulted Recommended outpatient elective colonoscopy Resolved ESRD on PD continue phoslo, calcitriol nephrology on board Monitor electrolytes Continue outpatient peritoneal dialysis Hypokalemia K replaced by nephrology Nephrology recommended potassium supplement 20meq BID Case discussed with Nephrology Dr. Nieves Continue monitor BMP Maxillofacial tenderness Pt said that she has a little blister around her mouth On tramadol for pain Improved HX MIGRAINE Stable DEPRESSION Continue SSRI DVT PROPHYLAXIS heparin SQ DISPOSITION Will discharge today Current Inpatient Medications: Current Inpatient Medications Medications (Trade) Dose Ordered Sig/Sachin Route Start Time Stop Time Status Last Admin Dose Admin Heparin Sodium (Porcine) (Heparin Sq 5000 Unit/0.5ml) 5,000 unit Q8 SQ 09/13/17 22:00 10/13/17 21:59 Acetaminophen (Tylenol Tab) 650 mg Q4H PRN PO 09/13/17 18:30 10/13/17 18:29 09/15/17 11:21 650 MG Ondansetron HCl (Zofran Inj) 4 mg Q6H PRN IV 09/13/17 18:30 10/13/17 18:29 Albuterol (Ventolin Hfa Inhaler) 2 puffs Q4H PRN INH 09/13/17 18:45 10/13/17 18:44 Calcium Carbonate (Tums Chew Tab) 1,500 mg HS PO 09/13/17 21:00 10/13/17 20:59 09/14/17 20:19 1,500 MG Famotidine (Pepcid Tab) 40 mg QAM PO 09/14/17 09:00 10/14/17 08:59 09/15/17 08:54 40 MG Lorazepam (Ativan Tab) 0.5 mg HS PRN PO 09/13/17 18:45 10/13/17 18:44 09/14/17 20:19 0.5 MG Sumatriptan Succinate (Imitrex Tab) 50 mg DAILY PRN PO 09/13/17 18:45 2/18/18 18:44 Tramadol HCl (Ultram Tab) 50 mg Q6 PRN PO 09/13/17 18:45 10/13/17 18:44 09/15/17 11:21 50 MG Calcitriol (Rocaltrol Cap) 1 mcg QAM PO 09/14/17 09:00 10/14/17 08:59 09/15/17 08:54 1 MCG Miscellaneous Information (Order Awaiting Action) 1 ea QS N/A 09/14/17 00:00 10/14/17 00:00 09/14/17 20:20 1 EA Calcium Acetate (Phoslo Cap) 1,334 mg BID PRN PO 09/13/17 18:45 10/13/17 18:44 Calcium Acetate (Phoslo Cap) 2,001 mg TIDM PO 09/14/17 07:30 10/14/17 07:29 09/14/17 17:10 2,001 MG Miscellaneous (Iv Fluids Completed) 1 ea PRN PRN N/A 09/13/17 19:45 09/13/18 19:44 Potassium Chloride (Klor-Con Tab) 20 meq BID PO 09/14/17 21:00 10/14/17 20:59 09/15/17 08:54 20 MEQ Dexamethasone/ Nystatin/ Diphenhydramine HCl/Sucrose/ Microcrystalline Cellulose/Barcode Q4H PRN PO 09/14/17 19:30 10/14/17 19:29
[2017-09-15] MEDS ORDERED: MCRK20 PO (13:19)
--- NOTE | 2017-09-15 13:34 | Discharge Instructions ---
Discharge Instructions Date of Service Sep 15, 2017. Admission Reason for Admission: Hypotension Discharge Discharge Diagnosis / Problem: Hypotension, ESRD on PD Discharge Goals Goal(s): Decrease discomfort, Improve function, Improve disease control Activity Recommendations Activity Limitations: resume your previous activity (as tolerated) . Instructions / Follow-Up Instructions / Follow-Up Follow up with your primary care provider Dr. Aldridge on 09/20 @ 10:45 am at the [facility] Continue peritoneal dialysis If diarrhea continues, follow with gastro to arrange for an outpatient colonoscopy Continue follow with nephrology Starting on potassium supplement Check BMP to monitor electrolytes Current Hospital Diet Patient's current hospital diet: Renal Diet Discharge Diet Recommended Diet: Renal Diet Pending Studies Studies pending at discharge: no Medical Emergencies . Who to Call and When: Medical Emergencies: If at any time you feel your situation is an emergency, please call 911 immediately. . Non-Emergent Contact Non-Emergency issues call your: Primary Care Provider Call Non-Emergent contact if: you have any medication questions . . "Provider Documentation" section prepared by Ambreen Lutz. . VTE Core Measure Inpt VTE Proph given/why not?: Unfractionated heparin SQ
--- NOTE | 2017-09-16 07:39 | Discharge Summary ---
Discharge Summary Date of Service Sep 16, 2017. Discharge Summary Admission Date: Sep 13, 2017 at 18:35 Discharge Date: Sep 15, 2017 Discharge Disposition: Home Principal Diagnosis: Hypotension Secondary Diagnoses/Problems: ESRD on PD Depression Hypokalemia Chronic diarrhea Procedures: CHEST ONE VIEW PORTABLE HISTORY: 31 years-old Female EVALUATE ALTERED MENTAL STATUS/WEAKNESS acute altered mental status COMPARISON: Chest radiograph 09/09/2017 TECHNIQUE: Portable AP view of the chest FINDINGS: The cardiomediastinal and hilar silhouettes are within normal limits. There is no pneumothorax, pleural effusion, focal airspace consolidation or overt pulmonary edema. Bones of the chest appear grossly intact. Cholecystectomy clips are noted. IMPRESSION: No acute process. The above report was generated using voice recognition software. It may contain grammatical, syntax or spelling errors. Electronically signed by: Alejandro Copeland M.D. 09/13/2017 3:59 PM Medication Reconciliation New Medications: Potassium Chloride (Klor-Con M20) 20 Meq Tabcr 20 MEQ PO BID for 7 Days Continued Medications: Albuterol Hfa (Ventolin Hfa) 200 Puffs/94962 Mcg Aers 2 PUFFS INH Q4H PRN for SOB/Wheezing, INHALER Calcitriol (Calcitriol) 0.5 Mcg Cap 2 CAP PO QAM Calcium Acetate (Phoslo 667 Mg) 667 Mg Cap 3 CAP PO WM Calcium Acetate (Phoslo 667 Mg) 667 Mg Cap 2 CAP PO WITH SNACKS, CAP TAKE 2 CAPSULES WITH SNACKS Calcium Carbonate (Tums) 500 Mg Chew 3 TABS PO HS Famotidine (Pepcid) 40 Mg Tab 40 MG PO QAM, TAB Lorazepam (Lorazepam) 0.5 Mg Tab 1 TAB PO HS PRN for Insomnia Sumatriptan Succinate (Sumatriptan Succinate) 50 Mg Tab 1 TAB PO UD PRN for Migraine Take 1 tab po at onset of migraine and 1 tablet after 2 hrs if continued GARNETT. No more than 2 tablets in 24 hrs Tramadol HCl (Tramadol HCl) 50 Mg Tab 1 TAB PO Q6 PRN for Pain Vortioxetine HBr (Trintellix) 5 Mg Tab 5 MG PO QAM Admission Information HPI (per Admitting provider): Pt is 31 y/o F with PMH FSGS, ESRD on PD, failed renal transplant, DM II diet controlled, migraine, HTN presented to ER with c/o dizziness and hypotension. Pt reports has been having hypotension and orthostatic dizziness for past 2-3 months. Has had multiple ER visits. ER visit on 09/09/17 for dizziness, received NSS with improvement. Hx ER visit 09/06/17 for diarrhea. Admission 08/30-09/02/17 for syncope. ER visit on 08/20/18 & 08/17/18 for dizziness also. Doesn't make any urine. Does home PD nightly. She reports is using yellow bag. States initial 1000ml, total UF <900ml. Denies any blood noted in peritoneal fluid. She has been drinking 1L water daily. Pt reports hx heartburn. Using pepcid, sometimes without much relief. She reports poor appetite for weeks and admits hasn't been eating much. Denies vomiting or abdominal pain. Reports hx diarrhea , 3-6 episodes daily. Heme negative stool in ER on 09/06/17. In ER P: 115 to 99, BP: 79/60 to 106/65 after 750ml NSS. Pt reports feeling much better after IVF. EKG: sinus tachy at 103. No leukocytosis. Hgb: 11.3 (~ baseline). pending blood cultures. Negative CXR. Physical Exam (per Admitting): General Appearance: WD/WN, no apparent distress Head: normocephalic, atraumatic Eyes: normal inspection, PERRL, EOMI, sclerae normal ENT: hearing grossly normal, pharynx normal, + pertinent finding (mucous membranes moist) Neck: supple, no JVD, trachea midline Respiratory/Chest: chest non-tender, lungs clear, normal breath sounds, no respiratory distress, no accessory muscle use Cardiovascular: regular rate, rhythm (98 pulse), no edema, no murmur Abdomen/GI: normal bowel sounds, non tender, soft Back: no CVA tenderness Extremities/Musculoskelatal: normal capillary refill, no pedal edema, normal range of motion, non-tender Neurologic/Psych: alert, normal mood/affect, oriented x 3 Skin: warm/dry, + pertinent finding (+erythematous round lesions with excoriations to bilateral arms and legs) Hospital Course HYPOTENSION Present with low BP on admission 79/60 associated with dizziness Has been having multiple admission due to low BP Possible due to too much fluid removal during PD Pt will be a good candidate for PD due to multiple admission for low BP Received 750ml in the ER BP has been stable Not on any BP med CXR negative Blood cx and peritoneal fluid no growth Resolved Chronic Diarrhea Possible related to IBS Has not had any BM since last night Stool for C-Diff did not collect because pt has not had any BM GI consulted Recommended outpatient elective colonoscopy Resolved ESRD on PD continue phoslo, calcitriol nephrology on board Monitor electrolytes Continue outpatient peritoneal dialysis Hypokalemia K replaced by nephrology Nephrology recommended potassium supplement 20meq BID Case discussed with Nephrology Dr. Nieves Continue monitor BMP Maxillofacial tenderness Pt said that she has a little blister around her mouth On tramadol for pain Improved HX MIGRAINE Stable DEPRESSION Continue SSRI DVT PROPHYLAXIS heparin SQ DISPOSITION Will discharge today Total time spent on discharge = 35 min This includes examination of the patient, discharge planning, medication reconciliation, and communication with other providers. Discharge Instructions Discharge Instructions Date of Service Sep 15, 2017. Admission Reason for Admission: Hypotension Discharge Discharge Diagnosis / Problem: Hypotension, ESRD on PD Discharge Goals Goal(s): Decrease discomfort, Improve function, Improve disease control Activity Recommendations Activity Limitations: resume your previous activity (as tolerated) . Instructions / Follow-Up Instructions / Follow-Up Follow up with your primary care provider Dr. Aldridge on 09/20 @ 10:45 am at the [facility] ER Continue peritoneal dialysis If diarrhea continues, follow with gastro to arrange for an outpatient colonoscopy Continue follow with nephrology Starting on potassium supplement Check BMP to monitor electrolytes Current Hospital Diet Patient's current hospital diet: Renal Diet Discharge Diet Recommended Diet: Renal Diet Pending Studies Studies pending at discharge: no Medical Emergencies . Who to Call and When: Medical Emergencies: If at any time you feel your situation is an emergency, please call 911 immediately. . Non-Emergent Contact Non-Emergency issues call your: Primary Care Provider Call Non-Emergent contact if: you have any medication questions . . "Provider Documentation" section prepared by Ambreen Lutz. . VTE Core Measure Inpt VTE Proph given/why not?: Unfractionated heparin SQ Additional Copies To Adolph Aldridge M.D.
== END 2017-09-15 13:45 | disposition home or self-care (01) ==
LOC: C.EDB 15:27 → EDBEDREQ 18:34 → C.2T 18:35 → EDBEDREQ 18:58 → ENRESERV 19:07
PROVIDERS: ADMIT Internal Medicine; ATTEND Internal Medicine
DX: I95.9 Hypotension, unspecified (principal); I13.2 Hypertensive heart and chronic kidney disease with heart failure and with stage 5 chronic kidney disease, or end stage renal disease; N18.6 End stage renal disease; T86.12 Kidney transplant failure; Y83.0 Surgical operation with transplant of whole organ as the cause of abnormal reaction of the patient, or of later complication, without mention of misadventure at the time of the procedure; F32.9 Major depressive disorder, single episode, unspecified; E87.6 Hypokalemia; K30 Functional dyspepsia; R19.7 Diarrhea, unspecified; E11.9 Type 2 diabetes mellitus without complications; I50.30 Unspecified diastolic (congestive) heart failure; F17.200 Nicotine dependence, unspecified, uncomplicated; E66.9 Obesity, unspecified; Z99.2 Dependence on renal dialysis; Z90.49 Acquired absence of other specified parts of digestive tract; Z88.3 Allergy status to other anti-infective agents; Z68.28 Body mass index [BMI] 28.0-28.9, adult; Z86.711 Personal history of pulmonary embolism; Z82.49 Family history of ischemic heart disease and other diseases of the circulatory system; Z83.6 Family history of other diseases of the respiratory system

== ENCOUNTER 2017-09-28 16:48 | Emergency (ER) | payer OTHER ==
[~2017-09-28] VITALS: Ht 167.6 cm; Wt 79.0 kg
[~2017-09-28 16:48] MED LIST changes: -ATV5X PO; +MCRK20 PO; +TEMA-79 PO
[2017-09-28 16:51] VITALS: Ht 167.6 cm; Wt 79.0 kg
[2017-09-28] MEDS ORDERED: SODIUM CHLORIDE 0.9% 500ML 500 ML IV STA ×2 (17:03→18:38)
[2017-09-28 17:22] VITALS: O2SAT 99
--- NOTE | 2017-09-28 17:22 | EMERGENCY ROOM VISIT NOTE ---
History First contact with patient: 16:55 Chief Complaint: HYPOTENSION Stated Complaint: BLOOD PRESSURE IS LOW History of Present Illness The patient is a 31 year old female who presents to the Emergency Room via private vehicle with complaints of "blood pressure is low". The patient states that she performs peritoneal dialysis every evening, and states that when she woke this morning and stood up she felt as if she was going to pass out. She notes that on her way to the bathroom she had returned to her bed and fell secondary to a near syncopal event. She states that she checked her blood pressure prior to coming here and it was 64/49. She states that she felt similar about half a month ago and was admitted here. She has been doing peritoneal dialysis since March and before that was on hemodialysis. She notes chronic chest pain or shortness of breath but notes this is not new and is of no concern. She denies any unilateral weakness or speech trouble. Review of Systems A complete 10-point Review of Systems was discussed with the patient, with pertinent positives and negatives listed in the History of Present Illness. All remaining Review of Systems questions can be considered negative unless otherwise specified. Past Medical/Surgical History Medical Problems: (1) Anemia (2) CKD (chronic kidney disease) stage V requiring chronic dialysis (3) Diastolic CHF (4) DM2 (diabetes mellitus, type 2) (5) Fistula of artery (6) FSGS (focal segmental glomerulosclerosis) (7) HTN (hypertension) (8) Migraine (9) Pancreatitis (10) PD catheter (11) Peritoneal dialysis catheter in place (12) Pulmonary embolism (13) Renal failure (14) Tunnel catheter Surgical Problems: (1) H/O section (2) H/O eye surgery (3) H/O hernia repair (4) H/O knee surgery (5) H/O tubal ligation (6) H/O: (7) History of cholecystectomy (8) Kidney transplant status, living related donor Family History Blood clots FATHER BROTHER Crohn's disease FATHER Diabetes mellitus MOTHER Gallbladder disease Heart disease Hypertension SISTER Lung disease Social History Smoking Status: Current Every Day Smoker Alcohol Use: none Drug Use: none Marital Status: in relationship Housing Status: lives with family Occupation Status: unemployed Current/Historical Medications Scheduled Calcitriol (Calcitriol), 2 CAP PO QAM Calcium Acetate (Phoslo 667 Mg), 3 CAP PO WM Calcium Acetate (Phoslo 667 Mg), 2 CAP PO WITH SNACKS Calcium Acetate (Phoslo 667 Mg), 1 CAP PO WITH "DARK" SODA Calcium Carbonate (Tums), 3 TABS PO HS Famotidine (Pepcid), 40 MG PO QAM Potassium Ext Rel (Klor-Con), 20 MEQ PO BID Temazepam (Restoril), 15 MG PO HS Vortioxetine HBr (Trintellix), 5 MG PO QAM Scheduled PRN Albuterol Hfa (Ventolin Hfa), 2 PUFFS INH Q4H PRN for SOB/Wheezing Sumatriptan Succinate (Sumatriptan Succinate), 1 TAB PO UD PRN for Migraine Tramadol HCl (Tramadol HCl), 1 TAB PO Q6 PRN for Pain Physical Exam Vital Signs Date Time Temp Pulse Resp B/P (MAP) Pulse Ox O2 Delivery O2 Flow Rate FiO2 09/28/17 20:36 36.8 80 14 113/75 98 09/28/17 20:06 80 14 98 Room Air 09/28/17 20:01 113/75 09/28/17 19:54 112/72 18 19:52 123/76 18 19:51 125/82 18 19:50 115/80 18 19:50 74 125/82 99 Room Air 82 123/76 100 112/72 09/28/17 19:48 85 14 113/72 97 Room Air 09/28/17 19:36 84 17 100 09/28/17 19:31 113/72 09/28/17 19:06 89 13 100 09/28/17 19:01 116/76 18 19:00 85 14 116/76 97 Room Air 09/28/17 18:36 88 21 100 18 18:31 83 14 96/59 97 Room Air 09/28/17 18:29 115 20 107/75 98 Room Air 103/69 77/61 218 18:27 105/64 18 18:25 77/61 18 18:24 106/71 18 18:23 90 14 100 09/28/17 18:18 98 13 100 09/28/17 17:48 95 14 100 2/3/18 17:26 99 09/28/17 17:22 99 Room Air 09/28/17 17:22 100/66 09/28/17 16:51 36.8 115 18 92/68 98 Room Air Physical Exam VITAL SIGNS - Vital signs and nursing notes were reviewed. Stable. Tachycardic. GENERAL -31-year-old female appearing her stated age who is in no acute distress. Communicates well with provider and answers questions appropriately. SKIN - Without rashes. No petechial or meningeal rash. HEAD - NC/AT. EYES -Sclera anicteric. EARS - No deformities of external structures noted on gross examination bilaterally. NOSE - Midline and without cyanosis. No epistaxis or purulent drainage noted. MOUTH/OROPHARYNX - Without perioral cyanosis. LUNGS - Chest wall symmetric without accessory muscle use, intercostals retractions, or central cyanosis. Normal vesicular breath sounds CTA B/L. No wheezes, rales, or rhonchi appreciated. CARDIAC - RRR with S1/S2. No murmur, rubs, or gallops appreciated. NEUROLOGIC - Cranial nerves II through XII grossly intact. Sensory intact to light touch throughout. Medical Decision & Procedures Laboratory Results 09/28/17 18:00 Red Blood Count 3.51, Mean Corpuscular Volume 102.8, Mean Corpuscular Hemoglobin 34.2, Mean Corpuscular Hemoglobin Concent 33.2, Mean Platelet Volume 9.4, Neutrophils (%) (Auto) 77.2, Lymphocytes (%) (Auto) 11.7, Monocytes (%) ( Auto) 7.9, Eosinophils (%) (Auto) 2.8, Basophils (%) (Auto) 0.1, Neutrophils # ( Auto) 5.87, Lymphocytes # (Auto) 0.89, Monocytes # (Auto) 0.60, Eosinophils # ( Auto) 0.21, Basophils # (Auto) 0.01 09/28/17 18:00 Test 09/28/17 18:00 09/28/17 20:06 White Blood Count 7.60 K/uL (4.8-10.8) Red Blood Count 3.51 M/uL (4.2-5.4) Hemoglobin 12.0 g/dL (12.0-16.0) Hematocrit 36.1 % (37-47) Mean Corpuscular Volume 102.8 fL (80-100) Mean Corpuscular Hemoglobin 34.2 pg (25-34) Mean Corpuscular Hemoglobin Concent 33.2 g/dl (32-36) Platelet Count 135 K/uL (130-400) Mean Platelet Volume 9.4 fL (7.4-10.4) Neutrophils (%) (Auto) 77.2 % Lymphocytes (%) (Auto) 11.7 % Monocytes (%) (Auto) 7.9 % Eosinophils (%) (Auto) 2.8 % Basophils (%) (Auto) 0.1 % Neutrophils # (Auto) 5.87 K/uL (1.4-6.5) Lymphocytes # (Auto) 0.89 K/uL (1.2-3.4) Monocytes # (Auto) 0.60 K/uL (0.11-0.59) Eosinophils # (Auto) 0.21 K/uL (0-0.5) Basophils # (Auto) 0.01 K/uL (0-0.2) RDW Standard Deviation 60.4 fL (36.4-46.3) RDW Coefficient of Variation 17.2 % (11.5-14.5) Immature Granulocyte % (Auto) 0.3 % Immature Granulocyte # (Auto) 0.02 K/uL (0.00-0.02) Nucleated RBC Absolute Count (auto) 0.04 K/uL (0-0) Nucleated Red Blood Cells % 0.5 % Anion Gap 13.0 mmol/L (3-11) Est Creatinine Clear Calc Drug Dose 6.4 ml/min Estimated GFR () 3.7 Estimated GFR (Non- 3.2 BUN/Creatinine Ratio 2.4 (10-20) Calcium Level 8.9 mg/dl (8.5-10.1) Magnesium Level 2.1 mg/dl (1.8-2.4) Total Bilirubin 0.4 mg/dl (0.2-1) Aspartate Amino Transf (AST/SGOT) 12 U/L (15-37) Alanine Aminotransferase (ALT/SGPT) 18 U/L (12-78) Alkaline Phosphatase 95 U/L (45-117) Troponin I < 0.015 ng/ml (0-0.045) Total Protein 7.6 gm/dl (6.4-8.2) Albumin 3.1 gm/dl (3.4-5.0) Globulin 4.5 gm/dl (2.5-4.0) Albumin/Globulin Ratio 0.7 (0.9-2) Lactic Acid Level 1.5 mmol/L (0.4-2.0) Medications Administered Medications (Trade) Dose Ordered Sig/Sachin Route Start Time Stop Time Status Last Admin Dose Admin Sodium Chloride 500 ml @ 999 mls/hr Q31M STAT IV 09/28/17 17:03 09/28/17 17:33 DC 09/28/17 18:17 999 MLS/HR Sodium Chloride 500 ml @ 999 mls/hr Q31M STAT IV 09/28/17 18:38 09/28/17 19:08 DC 09/28/17 18:56 999 MLS/HR Acetaminophen (Tylenol Tab) 650 mg NOW STAT PO 09/28/17 18:53 09/28/17 18:54 DC 09/28/17 19:01 650 MG Potassium Chloride (Klor-Con M10) 60 meq STK-MED ONCE .ROUTE 09/28/17 19:39 09/28/17 19:40 DC 09/28/17 19:46 60 MEQ Medical Decision Patient was seen and evaluated as above. She presents to us today with hypotension. She is well on exam, but upon standing is hypertensive. She performs peritoneal dialysis at home the night. This has been since March. I question if perhaps she is taking off too much fluid causing her to be fluid depleted when she wakes in the morning and hypotensive. IV access was initiated , and the above workup was performed. CBC reveals a leukocytosis. there is stable hemoglobin at 12. this is improved compared to 09/14/2017 when it was 9.6. chemistry panel does reveal hyponatremia and hypokalemia. creatinine at 13.6. lactic acid normal. she was given half liter of normal saline was reevaluated and upon standing was hypotensive. i discussed the case with the hospitalist, Dr. Ordoñez. Another half liter was given. She was no longer hypotensive upon standing. She notes that she felt much better. She appears stable for outpatient management. She is to call Dr. Jo first thing Saturday morning to schedule follow-up for potential discussion regarding the amount she is dialyzing. She was educated upon management, educated upon worrisome symptoms in which to return, had questions answered prior to discharge, and was discharged home in good condition. Patient EKG per my interpretation has a normal sinus rhythm, prolonged QT. This was compared with EKG of 09/13/2017, and no significant change was found ( however QT has lengthened) In evaluation treatment this patient the following differential diagnoses were entertained: Hypotension, sepsis, fluid depletion, influenza, among others. Impression Primary Impression: Orthostatic hypotension Additional Impression: Hypokalemia Departure Information Dispostion Home / Self-Care Condition GOOD Referrals Adolph Aldridge M.D. (PCP) Patient Instructions My [facility] Additional Instructions You were seen in the emergency Department for low blood pressure. You were given fluids here and have improved. Your potassium as low as we discussed. Please call Dr. Jo FIRST thing Saturday morning to discuss your peritoneal dialysis as I'm concerned hyou may be losing too much fluid. Please stay well hydrated. Please return with any new/concerning symptoms. Problem Qualifiers
[2017-09-28] MEDS ORDERED: POTA20TA16 PO (17:33)
[2017-09-28] MEDS ORDERED: CALC667C4 PO (17:33)
[2017-09-28 18:25] LABS: BASO % 0.1 %; BASO ABS # 0.01 K/uL (0-0.2); EOS % 2.8 %; EOS ABS # 0.21 K/uL (0-0.5); HEMATOCRIT 36.1 % (37-47); IG# 0.02 K/uL (0.00-0.02); LYMPH % 11.7 %; LYMPH ABS # 0.89 K/uL (1.2-3.4); MEAN CELL VOLUME 102.8 fL (80-100); MEAN CORPUSCULAR HEMOGLOBIN 34.2 pg (25-34); MEAN CORPUSCULAR HGB CONC 33.2 g/dl (32-36); MEAN PLATELET VOLUME 9.4 fL (7.4-10.4); MONO % 7.9 %; NEUT % 77.2 %; NEUT ABS # 5.87 K/uL (1.4-6.5); NUCLEATED RED BLOOD CELL ABS 0.04 K/uL (0-0); PLATELET COUNT 135 K/uL (130-400); RED CELL DISTRIBUTION WIDTH CV 17.2 % (11.5-14.5); RED CELL DISTRIBUTION WIDTH SD 60.4 fL (36.4-46.3)
[2017-09-28] MEDS ORDERED: ACETAMINOPHEN 325 MG TAB PO STA (18:53)
[2017-09-28 18:54] LABS: ALBUMIN 3.1 gm/dl (3.4-5.0); ALKALINE PHOSPHATASE 95 U/L (45-117); ALT/SGPT 18 U/L (12-78); AST/SGOT 12 U/L (15-37); BLOOD UREA NITROGEN 33 mg/dl (7-18); CALCIUM 8.9 mg/dl (8.5-10.1); CARBON DIOXIDE 26 mmol/L (21-32); GLUCOSE 119 mg/dl (70-99); POTASSIUM 2.9 mmol/L (3.5-5.1); SODIUM 133 mmol/L (136-145); TOTAL PROTEIN 7.6 gm/dl (6.4-8.2)
[2017-09-28] MEDS ORDERED: POTASSIUM CHLORIDE 10 MEQ TABCR PO STA (19:28)
[2017-09-28] MEDS ORDERED: POTASSIUM CHLORIDE 10 MEQ TABCR ONE (19:39)
[2017-09-28 20:36] VITALS: BP 113/75; PULSE 80; TEMP 36.8; O2SAT 98
== END 2017-09-28 20:36 | disposition home or self-care (01) ==
LOC: C.EDB 16:49 → C.EDA 20:36
DX: I95.1 Orthostatic hypotension (principal); E87.6 Hypokalemia; E87.1 Hypo-osmolality and hyponatremia; N18.3 Chronic kidney disease, stage 3 (moderate); E11.22 Type 2 diabetes mellitus with diabetic chronic kidney disease; I12.9 Hypertensive chronic kidney disease with stage 1 through stage 4 chronic kidney disease, or unspecified chronic kidney disease; F17.200 Nicotine dependence, unspecified, uncomplicated; Z86.711 Personal history of pulmonary embolism; Z91.81 History of falling; Z98.891 History of uterine scar from previous surgery; Z99.2 Dependence on renal dialysis; Z98.51 Tubal ligation status; Z90.49 Acquired absence of other specified parts of digestive tract; Z94.0 Kidney transplant status; Z98.890 Other specified postprocedural states; Z82.49 Family history of ischemic heart disease and other diseases of the circulatory system; Z83.3 Family history of diabetes mellitus; Z83.79 Family history of other diseases of the digestive system

== ENCOUNTER → 2017-10-01 | Day surgery (SDC) | payer OTHER ==
[2017-09-24 13:50] VITALS: Ht 167.6 cm; Wt 80.1 kg
[~2017-10-01] VITALS: Ht 167.6 cm; Wt 80.1 kg
[~2017-10-01] MED LIST changes: +LIDOCAINE HCL 2% 2 ML VIAL (20MG/ML) ONE; -MCRK20 PO; +NURSING VERBAL MED ORDER ONE; +PHENYLEPHRINE 100MCG/ML 5ML SYR ONE; +POTA20TA16 PO; +PROPOFOL IV EMULSION 10 MG/ML 20 ML VIAL IV ONE; +SODIUM CHLORIDE 0.9% 500ML 500 ML IV ONE; +VANCOMYCIN INJ 1,000 MG in SODIUM CHLORIDE 0.9% 250ML 250 ML IV SCH
--- NOTE | 2017-10-01 12:38 | Endo History and Physical ---
History & Physical Date of Service: Oct 01, 2017. Chief Complaint: DIARRHEA Referring Physician: DR LEDESMA History of Present Illness Chronic diarrhea Past Medical History Diabetes, Fractures, Anxiety, Reflux, Chronic Steroid Use, Kidney Disease, Depression Past Surgical History Hx Cardiac Surgery: Yes (HEART CATH/NO STENTS) Hx Abdominal Surgery: Yes ( X 2, TUBAL LIGATION, UMBILICAL HERNIA, SUMMER) Hx Post-Op Nausea and Vomiting: No Hx Cancer Surgery: No Hx Thoracic Surgery: No Hx Orthopedic: Yes (LEFT KNEE SURGERY X 2) Hx Urinary Tract Surgery: Yes (KIDNEY TRANSPLANT) Family History IBD Social History Smoking Status: Current Every Day Smoker Hx Substance Use: No Hx Alcohol Use: No Allergies Coded Allergies: Cefaclor (Verified Allergy, Intermediate, Rash, 10/01/17) Reported by PT. Amoxicillin (Verified Adverse Reaction, Mild, VOMITING, 10/01/17) Clavulanic Acid (Verified Adverse Reaction, Mild, VOMITING, 10/01/17) Current Medications Reported Home Medications Medications Dose Route/Sig Max Daily Dose Days Date Category Dose Instructions Phoslo 667 Mg (Calcium Acetate) 667 Mg Cap 1 Cap PO WITH "DARK" SODA 09/28/17 Reported Klor-Con (Potassium Chloride) 20 Meq Tabcr 20 Meq PO BID 09/28/17 Reported Restoril (Temazepam) 15 Mg Cap 15 Mg PO HS 09/24/17 Reported Tramadol HCl 50 Mg Tab 1 Tab PO Q6 PRN 09/06/17 Reported Sumatriptan Succinate 50 Mg Tab 1 Tab PO UD PRN 09/06/17 Reported Take 1 tab po at onset of migraine and 1 tablet after 2 hrs if continued GARNETT. No more than 2 tablets in 24 hrs Tums (Calcium Carbonate) 500 Mg Chew 3 Tabs PO HS 07/29/17 Reported Trintellix (Vortioxetine HBr) 5 Mg Tab 5 Mg PO QAM 06/11/17 Reported Calcitriol 0.5 Mcg Cap 2 Cap PO QAM 04/13/17 Reported Pepcid (Famotidine) 40 Mg Tab 40 Mg PO QAM 01/22/17 Reported Phoslo 667 Mg (Calcium Acetate) 667 Mg Cap 2 Cap PO WITH SNACKS 12/02/16 Reported TAKE 2 CAPSULES WITH SNACKS Phoslo 667 Mg (Calcium Acetate) 667 Mg Cap 3 Cap PO WM 3/26/17 Reported Ventolin Hfa (Albuterol) 200 Puffs/96152 Mcg Aers 2 Puffs INH Q4H PRN 07/05/16 Reported Vital Signs Weight (Kilograms): 80.1 Height (Feet): 5 Height (Inches): 6 Date Time Temp Pulse Resp B/P (MAP) Pulse Ox O2 Delivery O2 Flow Rate FiO2 10/01/17 11:04 36.6 92 20 100/75 (83) 99 Room Air Physical Exam General Appearance: no apparent distress Respiratory/Chest: Auscultation: breath sounds normal Cardiovascular: Heart Auscultation: RRR Abdomen: Inspection & Palpation: soft, non-distended Assessment and Plan Stable for colonoscopy
--- NOTE | 2017-10-01 13:32 | GI REPORT ---
Procedure Date: 10/01/2017 11:53 AM Procedure: Colonoscopy Indications: Chronic diarrhea Medicines: Monitored Anesthesia Care Complications: No immediate complications. Estimated Blood Loss: Estimated blood loss: none. Procedure: Pre-Anesthesia Assessment: - Prior to the procedure, a History and Physical was performed, and patient medications and allergies were reviewed. The patient is competent. The risks and benefits of the procedure and the sedation options and risks were discussed with the patient. All questions were answered and informed consent was obtained. Patient identification and proposed procedure were verified by the physician and the nurse in the procedure room. Mental Status Examination: alert and oriented. Airway Examination: normal oropharyngeal airway and neck mobility. Respiratory Examination: clear to auscultation. CV Examination: normal. ASA Grade Assessment: III - A patient with severe systemic disease. After reviewing the risks and benefits, the patient was deemed in satisfactory condition to undergo the procedure. The anesthesia plan was to use monitored anesthesia care (MAC). Immediately prior to administration of medications, the patient was re-assessed for adequacy to receive sedatives. The heart rate, respiratory rate, oxygen saturations, blood pressure, adequacy of pulmonary ventilation, and response to care were monitored throughout the procedure. The physical status of the patient was re-assessed after the procedure. After I obtained informed consent, the scope was passed under direct vision. Throughout the procedure, the patient's blood pressure, pulse, and oxygen saturations were monitored continuously. The scope was introduced through the anus and advanced to the terminal ileum. The colonoscopy was performed without difficulty. The patient tolerated the procedure well. The quality of the bowel preparation was good. The terminal ileum, ileocecal valve, appendiceal orifice, and rectum were photographed. Scope withdrawal time was 10 minutes. Patient with peritoneal dialysis hence prophylactic antibiotics with 1gm of IV Vancomycin (allergic to PCN) was given prior to the procedure to decrease the risk of infection as per ASGE guidelines. Findings: The perianal and digital rectal examinations were normal. The terminal ileum appeared normal. Two sessile polyps were found in the descending colon. The polyps were 4 mm in size. These polyps were removed with a cold biopsy forceps. Resection and retrieval were complete. Verification of patient identification for the specimen was done by the physician and nurse using the patient's name and date. A few small-mouthed diverticula were found in the sigmoid colon and descending colon. The colon (entire examined portion) appeared normal. Biopsies for histology were taken with a cold forceps from the right colon and left colon for evaluation of microscopic colitis. The retroflexed view of the distal rectum and anal verge was normal and showed no anal or rectal abnormalities. Impression: - The examined portion of the ileum was normal. - Two 4 mm polyps in the descending colon, removed with a cold biopsy forceps. Resected and retrieved. - Diverticulosis in the sigmoid colon and in the descending colon. - The entire examined colon is normal. Biopsied. - The distal rectum and anal verge are normal on retroflexion view. Recommendation: - Discharge patient to home. - Await pathology results. - Repeat colonoscopy for surveillance based on pathology results. - Return to referring physician. Carmela Capellan MD 10/01/2017 1:32:17 PM This report has been signed electronically. Note Initiated On: 10/01/2017 11:53 AM I attest to the content of the Intraoperative Record and orders documented therein, exceptions below
--- NOTE | 2017-10-01 13:33 | Discharge Instructions ---
Endoscopy Patient Instructions Date / Procedure(s) Performed Oct 01, 2017. Colonoscopy Allergy Information Coded Allergies: Cefaclor (Verified Allergy, Intermediate, Rash, 10/01/17) Reported by PT. Amoxicillin (Verified Adverse Reaction, Mild, VOMITING, 10/01/17) Clavulanic Acid (Verified Adverse Reaction, Mild, VOMITING, 10/01/17) Discharge Date / Findings Oct 01, 2017. Polyps and Diverticulosis. Normal colon and TI, randomly biopsied. Provider Instructions Activity Restrictions - No exercising or heavy lifting for 24 hours. - Do not drink alcohol the day of the procedure. - Do not drive a car or operate machinery until the day after the procedure. - Do not make any important decisions or sign important papers in 24 hours after the procedure. Following Day: - Return to full activity which may include returning to work/school. Diet Start your diet with liquids and light foods (jello, soup, juice, toast). Then eat your usual diet if not nauseated. Treatment For Common After Affects For mild abdominal pain, bloating, or excessive gas: - Rest - Eat lightly - Lie on right side Follow-Up Information Follow-up with DR LEDESMA as scheduled Anesthesia Information What You Should Know You have had a procedure that required some medicine to reduce anxiety and discomfort. This treatment is called moderate sedation. After receiving the treatment, you may be sleepy, but you will be able to breathe on your own. The effects of the treatment may last for several hours. Follow these instructions along with Activity/Diet recommendations noted above: * Do NOT do anything where dizziness or clumsiness would be dangerous. * Rest quietly at home today, then you can be up and about tomorrow. * Have a responsible person stay with you the rest of today. * You may have had an I.V. today. If so, you may take the dressing off later today. Recommendations Call your doctor if: * Trouble breathing * Continuous vomiting for more than 24 hours * Temperature above 101 degrees * Severe abdominal pain or bloating * Pain not relieved by pain medicine ordered * There is increased drainage or redness from any incision * A large amount of rectal bleeding greater than 2-3 tablespoons. (If you had a polyp/s removed or have hemorrhoids, a small amount of blood - from the rectum is to be expected.) * You have any unanswered questions or concerns. IN THE EVENT OF A SERIOUS EMERGENCY, GO TO THE NEAREST EMERGENCY ROOM Your discharge instructions were prepared by provider Carmela Capellan. Patient Instructions Signature Page Alexandra Arguello Patient (or Guardian) Signature/Date: I have read and understand the instructions given to me by my caregivers. Caregiver/RN/Doctor Signature/Date: The above-named patient and/or guardian has received patient instructions on this date. + Original Patient Signature Page (only) stays with chart. Please make copy for patient.
--- NOTE | 2017-10-01 13:46 | Anesthesiology Progress Note ---
Anesthesia Post Op Note Date & Time Oct 01, 2017 at 13:46 Vital Signs Pain Intensity: 0 Vital Signs Past 12 Hours Date Time Temp Pulse Resp B/P (MAP) Pulse Ox O2 Delivery O2 Flow Rate FiO2 10/01/17 13:23 79 20 117/52 (73) 98 Room Air 10/01/17 11:04 36.6 92 20 100/75 (83) 99 Room Air Notes Mental Status: alert / awake / arousable, participated in evaluation Pt Amnestic to Procedure: Yes Nausea / Vomiting: adequately controlled Pain: adequately controlled Airway Patency, RR, SpO2: stable & adequate BP & HR: stable & adequate Hydration State: stable & adequate Anesthetic Complications: no major complications apparent
[2017-10-01 14:09] VITALS: BP 117/70; PULSE 75; O2SAT 99
== END | disposition home or self-care (01) ==
LOC: C.GI 10:35
PROVIDERS: ATTEND Student in an Organized Health Care Education/Training Program
DX: K52.9 Noninfective gastroenteritis and colitis, unspecified (principal); D12.4 Benign neoplasm of descending colon; K57.30 Diverticulosis of large intestine without perforation or abscess without bleeding; E11.9 Type 2 diabetes mellitus without complications; F32.9 Major depressive disorder, single episode, unspecified; F31.9 Bipolar disorder, unspecified; Z98.51 Tubal ligation status; Z79.52 Long term (current) use of systemic steroids; Z88.1 Allergy status to other antibiotic agents; Z90.49 Acquired absence of other specified parts of digestive tract; Z98.890 Other specified postprocedural states; Z94.0 Kidney transplant status; F17.200 Nicotine dependence, unspecified, uncomplicated

== ENCOUNTER 2017-10-07 00:51 | Emergency (ER) | payer OTHER ==
[~2017-10-07] VITALS: Ht 167.6 cm; Wt 82.2 kg
[~2017-10-07 00:51] MED LIST changes: -LIDOCAINE HCL 2% 2 ML VIAL (20MG/ML) ONE; -NURSING VERBAL MED ORDER ONE; -PHENYLEPHRINE 100MCG/ML 5ML SYR ONE; -PROPOFOL IV EMULSION 10 MG/ML 20 ML VIAL IV ONE; -SODIUM CHLORIDE 0.9% 500ML 500 ML IV ONE; -VANCOMYCIN INJ 1,000 MG in SODIUM CHLORIDE 0.9% 250ML 250 ML IV SCH
[2017-10-07 00:55] VITALS: TEMP 37
[2017-10-07 01:10] VITALS: O2SAT 99; Ht 167.6 cm; Wt 82.2 kg
[2017-10-07 01:35] LABS: BASO % 0.3 %; BASO ABS # 0.03 K/uL (0-0.2); EOS % 1.8 %; EOS ABS # 0.21 K/uL (0-0.5); HEMATOCRIT 33.5 % (37-47); HEMOGLOBIN 11.1 g/dL (12.0-16.0); IG# 0.03 K/uL (0.00-0.02); LYMPH % 14.5 %; LYMPH ABS # 1.68 K/uL (1.2-3.4); MEAN CELL VOLUME 102.1 fL (80-100); MEAN CORPUSCULAR HEMOGLOBIN 33.8 pg (25-34); MEAN CORPUSCULAR HGB CONC 33.1 g/dl (32-36); MEAN PLATELET VOLUME 9.8 fL (7.4-10.4); MONO % 4.8 %; MONO ABS # 0.56 K/uL (0.11-0.59); NEUT % 78.3 %; NEUT ABS # 9.05 K/uL (1.4-6.5); PLATELET COUNT 202 K/uL (130-400); RED CELL DISTRIBUTION WIDTH CV 16.4 % (11.5-14.5); RED CELL DISTRIBUTION WIDTH SD 61.2 fL (36.4-46.3); WHITE BLOOD COUNT 11.56 K/uL (4.8-10.8)
[2017-10-07 01:44] LABS: INFLUENZA B ANTIGEN Neg for Influ B (NEG)
[2017-10-07] MEDS ORDERED: CEFTAZIDIME IV STA (01:44)
[2017-10-07] MEDS ORDERED: DEXTROSE 5% IV STA (01:44)
[2017-10-07 01:52] LABS: INR 0.9 (0.9-1.1); PTT PATIENT 22.8 SECONDS (21.0-31.0)
[2017-10-07 02:25] LABS: ALBUMIN 3.1 gm/dl (3.4-5.0); ALKALINE PHOSPHATASE 89 U/L (45-117); ALT/SGPT 20 U/L (12-78); AST/SGOT 14 U/L (15-37); BLOOD UREA NITROGEN 37 mg/dl (7-18); CALCIUM 8.8 mg/dl (8.5-10.1); CARBON DIOXIDE 25 mmol/L (21-32); GLUCOSE 138 mg/dl (70-99); POTASSIUM 3.1 mmol/L (3.5-5.1); SODIUM 137 mmol/L (136-145); TOTAL PROTEIN 7.7 gm/dl (6.4-8.2)
[2017-10-07] MEDS ORDERED: ONDANSETRON INJ 2 MG/ML 2 ML VIAL ONE (02:32)
[2017-10-07] MEDS ORDERED: ONDANSETRON INJ 2 MG/ML 2 ML VIAL IV STA (02:43)
[2017-10-07] MEDS ORDERED: DICYCLOMINE HCL 10 MG/ML 2 ML AMP IM ONE (03:00)
[2017-10-07] MEDS ORDERED: ACETAMINOPHEN 500 MG TAB PO STA (03:00)
--- NOTE | 2017-10-07 04:07 | EMERGENCY ROOM VISIT NOTE ---
History First contact with patient: 00:51 Chief Complaint: ABDOMINAL PAIN Stated Complaint: ABDOMINAL PAIN Nursing Triage Summary: Patient arrived ALS for evaluation of abdominal pain and dizziness since yesterday. Patient has hx hypotension, peritoneal dialysis, and rash all over body since July. Patient is to see dermatology for the rash. Patient hooked up to dialysis tonight and started feeling worse so she called EMS. Patient had a colonoscopy done Saturday for chronic diarrhea and has not had a bowel movement since. 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 History of Present Illness The patient is a 31 year old female who presents to the Emergency Room with complaints of subjective fever and chills with diffuse abdominal pain for the past day. Patient does peritoneal dialysis daily. She follows with Dr. Jo. She describes pain as cramping, ranging in severity 7 out of 10 throughout her abdomen worse in the upper abdomen. Nothing makes it better or worse. Patient had a colonoscopy at the beginning of the week. She has not had a bowel movement since. Patient states she does not eat that much. Patient had no documented temperature. Patient denies any chest pain, dyspnea, cough, congestion, back pain. She does not make urine. Patient states she chronically has chest pain and this is unchanged. Patient has an appointment in a week with her sales team recruiter. Review of Systems An 10 system review of systems was completed with positives and pertinent negatives listed in the HPI. Past Medical/Surgical History Medical Problems: (1) Anemia (2) CKD (chronic kidney disease) stage V requiring chronic dialysis (3) Diastolic CHF (4) DM2 (diabetes mellitus, type 2) (5) Fistula of artery (6) FSGS (focal segmental glomerulosclerosis) (7) HTN (hypertension) (8) Migraine (9) Pancreatitis (10) PD catheter (11) Peritoneal dialysis catheter in place (12) Pulmonary embolism (13) Renal failure (14) Tunnel catheter Surgical Problems: (1) H/O section (2) H/O eye surgery (3) H/O hernia repair (4) H/O knee surgery (5) H/O tubal ligation (6) H/O: (7) History of cholecystectomy (8) Kidney transplant status, living related donor Family History Blood clots FATHER BROTHER Crohn's disease FATHER Diabetes mellitus MOTHER Gallbladder disease Heart disease Hypertension SISTER Lung disease Social History Smoking Status: Current Every Day Smoker Alcohol Use: none Drug Use: none Marital Status: in relationship Housing Status: lives with family Occupation Status: unemployed Current/Historical Medications Scheduled Calcitriol (Calcitriol), 2 CAP PO QAM Calcium Acetate (Phoslo 667 Mg), 3 CAP PO WM Calcium Acetate (Phoslo 667 Mg), 2 CAP PO WITH SNACKS Calcium Acetate (Phoslo 667 Mg), 1 CAP PO WITH "DARK" SODA Calcium Carbonate (Tums), 3 TABS PO HS Famotidine (Pepcid), 40 MG PO QAM Potassium Ext Rel (Klor-Con), 20 MEQ PO BID Temazepam (Restoril), 15 MG PO HS Vortioxetine HBr (Trintellix), 5 MG PO QAM Scheduled PRN Albuterol Hfa (Ventolin Hfa), 2 PUFFS INH Q4H PRN for SOB/Wheezing Sumatriptan Succinate (Sumatriptan Succinate), 1 TAB PO UD PRN for Migraine Tramadol HCl (Tramadol HCl), 1 TAB PO Q6 PRN for Pain Physical Exam Vital Signs Date Time Temp Pulse Resp B/P (MAP) Pulse Ox O2 Delivery O2 Flow Rate FiO2 10/07/17 02:21 95 16 99 Room Air 10/07/17 01:51 98 21 99 10/07/17 01:37 94/70 10/07/17 01:21 96 14 95 10/07/17 01:10 99 Room Air 10/07/17 00:56 85 10/07/17 00:55 37.0 98 18 126/80 100 Room Air 10/07/17 00:53 126/80 Physical Exam VITALS: Vitals are noted on the nurse's note and reviewed by myself. Vital signs stable. GENERAL: White female, in no acute distress, nondiaphoretic, well-developed well -nourished. SKIN: Capillary reflex less than 2 seconds. HEENT: Normocephalic. PERRLA. EOMI. Nares patent. Mucous membranes moist. Neck is supple without nuchal rigidity. HEART: Regular rate and rhythm without murmurs gallops or rubs. LUNGS: Clear to auscultation bilaterally without wheezes, rales or rhonchi. No retractions or accessory muscle use. ABDOMEN: Positive bowel sounds x 4. Normal tympanic percussion. Soft, mild diffuse tenderness without localized pain, left mid abdomen with peritoneal dialysis present without signs of infection, without masses or organomegaly. Dias sign negative. No guarding or rebound tenderness. MUSCULOSKELETAL: No gross musculoskeletal defects. No pedal edema. No calf tenderness. NEURO: Patient was alert and oriented to person place and time. Normal sensation to light and sharp touch. No focal neurological deficits. Medical Decision & Procedures Laboratory Results 10/07/17 01:10 Red Blood Count 3.28, Mean Corpuscular Volume 102.1, Mean Corpuscular Hemoglobin 33.8, Mean Corpuscular Hemoglobin Concent 33.1, Mean Platelet Volume 9.8, Neutrophils (%) (Auto) 78.3, Lymphocytes (%) (Auto) 14.5, Monocytes (%) ( Auto) 4.8, Eosinophils (%) (Auto) 1.8, Basophils (%) (Auto) 0.3, Neutrophils # ( Auto) 9.05, Lymphocytes # (Auto) 1.68, Monocytes # (Auto) 0.56, Eosinophils # ( Auto) 0.21, Basophils # (Auto) 0.03 10/07/17 01:10 Test 10/07/17 00:00 10/07/17 01:10 10/07/17 01:17 10/07/17 01:20 Peritoneal Fluid Color PALE YELLOW Peritoneal Fluid Appearance CLEAR Peritoneal Fluid WBC < 10 /uL (0-300) Peritoneal Fluid RBC < 3000 /uL Peritoneal Fld Mononuclear WBCs (%) 71.4 % Peritoneal Fld Polynuclear WBCs (%) 28.6 % Influenza Type A Antigen Neg for Influ A (NEG) Influenza Type B Antigen Neg for Influ B (NEG) White Blood Count 11.56 K/uL (4.8-10.8) Red Blood Count 3.28 M/uL (4.2-5.4) Hemoglobin 11.1 g/dL (12.0-16.0) Hematocrit 33.5 % (37-47) Mean Corpuscular Volume 102.1 fL (80-100) Mean Corpuscular Hemoglobin 33.8 pg (25-34) Mean Corpuscular Hemoglobin Concent 33.1 g/dl (32-36) Platelet Count 202 K/uL (130-400) Mean Platelet Volume 9.8 fL (7.4-10.4) Neutrophils (%) (Auto) 78.3 % Lymphocytes (%) (Auto) 14.5 % Monocytes (%) (Auto) 4.8 % Eosinophils (%) (Auto) 1.8 % Basophils (%) (Auto) 0.3 % Neutrophils # (Auto) 9.05 K/uL (1.4-6.5) Lymphocytes # (Auto) 1.68 K/uL (1.2-3.4) Monocytes # (Auto) 0.56 K/uL (0.11-0.59) Eosinophils # (Auto) 0.21 K/uL (0-0.5) Basophils # (Auto) 0.03 K/uL (0-0.2) RDW Standard Deviation 61.2 fL (36.4-46.3) RDW Coefficient of Variation 16.4 % (11.5-14.5) Immature Granulocyte % (Auto) 0.3 % Immature Granulocyte # (Auto) 0.03 K/uL (0.00-0.02) Prothrombin Time 9.4 SECONDS (9.0-12.0) Prothromb Time International Ratio 0.9 (0.9-1.1) Activated Partial Thromboplast Time 22.8 SECONDS (21.0-31.0) Partial Thromboplastin Ratio 0.9 Anion Gap 16.0 mmol/L (3-11) Est Creatinine Clear Calc Drug Dose 6.6 ml/min Estimated GFR () 3.8 Estimated GFR (Non- 3.3 BUN/Creatinine Ratio 2.8 (10-20) Calcium Level 8.8 mg/dl (8.5-10.1) Magnesium Level 2.4 mg/dl (1.8-2.4) Total Bilirubin 0.3 mg/dl (0.2-1) Aspartate Amino Transf (AST/SGOT) 14 U/L (15-37) Alanine Aminotransferase (ALT/SGPT) 20 U/L (12-78) Alkaline Phosphatase 89 U/L (45-117) Troponin I < 0.015 ng/ml (0-0.045) Total Protein 7.7 gm/dl (6.4-8.2) Albumin 3.1 gm/dl (3.4-5.0) Globulin 4.6 gm/dl (2.5-4.0) Albumin/Globulin Ratio 0.7 (0.9-2) Human Chorionic Gonadotropin, Qual NEG (NEG) Bedside Troponin I < 0.030 ng/ml (0-0.045) Bedside Lactic Acid Venous 1.72 mmol/L (0.90-1.70) Medications Administered Medications (Trade) Dose Ordered Sig/Sachin Route Start Time Stop Time Status Last Admin Dose Admin Ceftazidime 2000 mg/Dextrose 60 ml @ 120 mls/hr NOW STAT IV 10/07/17 01:44 10/07/17 02:13 DC 10/07/17 02:16 120 MLS/HR Ondansetron HCl (Zofran Inj) 4 mg STK-MED ONCE .ROUTE 10/07/17 02:32 10/07/17 02:33 DC 10/07/17 02:33 4 MG Acetaminophen (Tylenol Tab) 1,000 mg NOW STAT PO 10/07/17 03:00 10/07/17 03:01 DC 10/07/17 03:09 1,000 MG Dicyclomine HCl (Bentyl Inj) 20 mg NOW ONCE IM 10/07/17 03:00 10/07/17 03:01 DC 10/07/17 03:09 20 MG ED Course Prior records/ancillary studies reviewed. Triage Nursing notes reviewed. The patient's history was concerning for abdominal pain. Differential diagnosis: Etiologies such as spontaneous bacterial peritonitis, constipation, drug- seeking behavior, appendicitis, diverticulitis, PUD, biliary pathology, UTI, pancreatitis, obstruction, mesenteric ischemia, aortic pathology, infections, inflammatory bowel disease, renal colic, as well as others were entertained. Physical examination findings: As above. ER treatment provided: Tylenol, Bentyl, Fortaz On reassessment the patient felt better. Diagnostics interpreted by me: ECG: Normal sinus, normal intervals, no acute ST-T wave changes. Impression normal sinus rhythm interpreted by myself The labs revealed mild leukocytosis. Negative peritoneal fluid analysis for SBP. No organisms seen Creatinine stable per chart review Imaging studies: Chest x-ray with no acute consolidation, pneumothorax or free of my interpretation CT ABDOMEN & PELVIS Without Contrast: Comparison is made to prior CT abdomen/pelvis on 08/04/2017. Prior cholecystectomy. New moderate ascites measuring simple fluid attenuation. Peritoneal dialysis catheter coiled in the right mid abdomen inferior to the right hepatic lobe. Etiology is nonspecific, but this is more than expected for stated to be secondary to the peritoneal dialysis catheter. Severely atrophic [place] kidneys. Duplicated left renal collecting system. No hydronephrosis or stone. Calcified, atrophic right lower quadrant kidney. Normal appendix. No bowel obstruction or inflammation. Hypodense lesion in the right ovary may represent a right ovarian cyst. Further evaluation could be performed with ultrasound if clinically indicated. Decompressed bladder. Tiny fat-containing umbilical hernia. Radiologist: India Mabry M.D. Exam and history seem consistent with abdominal discomfort that could be related to constipation. Patient had no evidence of SBP. Patient does home dialysis. She is instructed to do this when she gets home. She is advised to increase her fiber intake and take a stool softener as needed. She is advised to follow-up with her family care or sales team recruiter in a few days here in the ER sooner for abdominal pain, fevers, vomiting, worsening signs or symptoms or as needed. Patient did not have acute abdomen on exam. She is well-appearing. She was afebrile and nontoxic.By the evaluation outlined above emergent etiologies such as appendicitis, diverticulitis, PUD, biliary pathology, UTI, pancreatitis, obstruction, mesenteric ischemia, aortic pathology, infections, inflammatory bowel disease, renal colic, as well as others were deemed relatively unlikely. The pt informed about the findings as listed above. All questions were answered and pleased with the treatment. Return instructions were outlined and the patient was discharged in stable condition. Referral: The patient was referred back to their primary care physician for follow-up in 2 to 3 days for a recheck of the current condition. Medical Decision As above Medication Reconcilliation Current Medication List: was personally reviewed by me Blood Pressure Screening Patient's blood pressure: Normal blood pressure Impression Primary Impression: Generalized abdominal pain Additional Impression: Nausea Departure Information Dispostion Home / Self-Care Condition GOOD Referrals Adolph Aldridge M.D. (PCP) Patient Instructions My [facility] Additional Instructions DO NOT drive, drink alcohol, operate machinery, or perform dangerous activities today. You were given medications in the ER that can affect your ability to safely function or operate a vehicle. Recommend taking a stool softener such as Colace for constipation. This is over -the-counter. Acetaminophen(Tylenol) may be used for fever or pain. Use 1000mg every six hours as needed. Avoid using more than 3000mg in a 24 hour period. Zofran 4mg: Take one every six hours as needed for nausea. Avoid alcohol, operating machinery or dangerous equipment, working on ladders or roofs, DRIVING , or situations where being under the influence may be dangerous. Rest and drink plenty of fluids as tolerated. Slow sips of water or sports drinks are recommended instead of large amounts all at once. Continue current medications. Once your stomach is settled start with a clear liquid diet (jello, soup broth, etc.) and then advance as tolerated. You should avoid full, heavy meals for about 24 hrs from the time your symptoms resolved. Return to the ER immediately for worsening or persistent abdominal pain, vomiting, fevers, chest pains, difficulty breathing, black or bloody stools, worsening of your condition, or as needed. Follow up with your primary physician and/or sales team recruiter in 24 hours for a recheck of your current condition. Problem Qualifiers
[2017-10-07] MEDS ORDERED: ONDANSETRON HOME PACK 4MG OD TAB PO ONE (04:15)
[2017-10-07] MEDS ORDERED: DOCUSATE SODIUM 100 MG CAP PO ONE (04:15)
[2017-10-07 04:25] VITALS: BP 104/75; PULSE 95; O2SAT 99
--- NOTE | 2017-10-07 05:57 | EMERGENCY ROOM VISIT NOTE ---
ED Visit Note First contact with patient: 00:51 I have personally evaluated and examined this patient. I agree with assessment and plan of Cira Randall PA-C. Patient with diffuse abdominal pain s/p colonoscopy and no BM in last few days. She is on peritoneal dialysis and thus felt fluid cell count necessary. I personally removed fluid in sterile fashion and note crystal clear fluid. She is well known to department and I see no clear reason requiring admission at this time. She will go home to do her peritoneal dialysis that she missed doing this evening.
--- NOTE | 2017-10-07 06:54 | DIAGNOSTIC IMAGING REPORT ---
CT OF THE ABDOMEN AND PELVIS WITHOUT CONTRAST CLINICAL HISTORY: Severe abdominal pain. Renal failure. Peritoneal dialysis. COMPARISON STUDY: CT of the abdomen and pelvis August 04, 2017. TECHNIQUE: Axial images of the abdomen and pelvis were obtained without IV contrast. Images were reviewed in the axial, sagittal, and coronal planes. A dose lowering technique was utilized adhering to the principles of ALARA. FINDINGS: No pneumatosis, free air or portal venous gas is present. Unenhanced images of the liver, adrenal glands and pancreas are unremarkable. As before, both kidneys are markedly atrophic. Splenic irregularity is unchanged and is chronic. A peritoneal dialysis catheter is in place. The catheter is coiled, located inferior to the right hepatic lobe. Moderate ascites within the abdomen and pelvis is new since exam of August 04, 2017. This is low attenuation. There is no evidence for a bowel obstruction. A peripherally calcified abnormality within the right lower quadrant represents an old, failed allograft. A 2.8 cm hypodense density within the right ovary is noted. No suspicious osseous lesions are present. There is no abdominal or pelvic lymphadenopathy. IMPRESSION: 1. Interval development of moderate ascites. This finding is nonspecific and may be related to peritoneal dialysis although the amount of fluid is greater than expected for peritoneal dialysis. Peritoneal dialysis catheter in place, coiled inferior to the right hepatic lobe. 2. No bowel obstruction. 3. 2.8 cm hypodense right ovarian lesion which likely reflects a cyst. Electronically signed by: Sebastian Mcclain M.D. 10/07/2017 6:52 AM Dictated Date/Time: 10/07/2017 6:45 AM
--- NOTE | 2017-10-07 07:26 | DIAGNOSTIC IMAGING REPORT ---
CHEST ONE VIEW PORTABLE HISTORY: Atypical chest pain. COMPARISON: Chest 09/13/2017. FINDINGS: The lungs are clear. Cardiac silhouette is normal in size. No pleural effusions. No pneumothorax. IMPRESSION: No acute process. Electronically signed by: Jose Jenkins M.D. 10/07/2017 7:25 AM Dictated Date/Time: 10/07/2017 7:24 AM
== END 2017-10-07 04:30 | disposition home or self-care (01) ==
LOC: EDBD 00:51 → C.EDA 00:51
DX: R10.84 Generalized abdominal pain (principal); R11.0 Nausea; R50.9 Fever, unspecified; N18.5 Chronic kidney disease, stage 5; I12.9 Hypertensive chronic kidney disease with stage 1 through stage 4 chronic kidney disease, or unspecified chronic kidney disease; E11.9 Type 2 diabetes mellitus without complications; Z99.2 Dependence on renal dialysis; Z79.899 Other long term (current) drug therapy; Z86.711 Personal history of pulmonary embolism; Z86.79 Personal history of other diseases of the circulatory system; Z87.19 Personal history of other diseases of the digestive system; Z82.49 Family history of ischemic heart disease and other diseases of the circulatory system; Z83.2 Family history of diseases of the blood and blood-forming organs and certain disorders involving the immune mechanism; Z83.3 Family history of diabetes mellitus; Z83.6 Family history of other diseases of the respiratory system; Z83.79 Family history of other diseases of the digestive system; F17.200 Nicotine dependence, unspecified, uncomplicated

== ENCOUNTER 2017-12-24 12:04 | Emergency (ER) | payer OTHER ==
[~2017-12-24] VITALS: Ht 167.6 cm; Wt 85.5 kg
[~2017-12-24 12:04] MED LIST changes: +POTA-639 PO; -POTA20TA16 PO
[2017-12-24 12:07] VITALS: TEMP 36.9; Ht 167.6 cm; Wt 85.5 kg
[2017-12-24] MEDS ORDERED: METOCLOPRAMIDE HCL INJ 5 MG/ML 2 ML VIAL IV STA (12:18)
[2017-12-24] MEDS ORDERED: DiphenhydrAMINE HCL 50 MG/ML VIAL IV STA (12:18)
--- NOTE | 2017-12-24 12:56 | EMERGENCY ROOM VISIT NOTE ---
History Report prepared by Katia: María Hoffman Under the Supervision of: Dr. Shaun Cross M.D. First contact with patient: 12:10 Chief Complaint: HEADACHE Stated Complaint: HEADACHE, BLURRY VISION, WHITE STUFF ON TONGUE History of Present Illness The patient is a 32 year old female who presents to the Emergency Room with complaints of intermittent headaches for 6 days. The patient states that she was trying to help her fiance put together a sliding TV table when it came out of the box and hit her in the head. She states that since then she gets intermittent sharp pains where she was hit initially. She reports that with these headaches she gets dizzy and has blurry vision. She reports that when she closes her eyes for a little the headaches go away. The patient states that she came to the ED today because she called her PCP to make an appointment and they told her to come to the ED. She notes a history of migraines, but states that these are not as bad as her migraines. She states that they are small headaches. The patient complains of nausea and whiteness on her tongue. The patient denies vomiting, fevers, chills, cough, congestion, urinary symptoms, sore throat, throat pain, taking Tylenol for her headaches, and recent use of antibiotics. The patient notes that she has a history of a prolonged QT and End Stage Renal Disease. She states that she had FSGS and had gotten a kidney transplant in 2013. She reports that it failed in 2014 when she stopped taking her medicine because her ex- took her kids from her. She reports that she was doing hemodialysis until March. She reports that she then started peritoneal dialysis for 9 hours each night. The patient notes that her LNMP was a month ago and that her tubes are ties. She denies the chance of . Source of History: patient Onset: 6 days ago Position: other (global) Quality: sharp Timing: intermittent Modifying Factors (Relieving): other (closing her eyes) Associated Symptoms: + nausea, No fevers, No chills, No sorethroat, No cough , No vomiting, No urinary symptoms Note: The patient complains of blurred vision, dizziness, and whiteness on her tongue. The patient denies congestion and throat pain. Review of Systems See HPI for pertinent positives and negatives. A total of ten systems were reviewed and were otherwise negative. Past Medical & Surgical Medical Problems: (1) Anemia (2) CKD (chronic kidney disease) stage V requiring chronic dialysis (3) Diastolic CHF (4) DM2 (diabetes mellitus, type 2) (5) Fistula of artery (6) FSGS (focal segmental glomerulosclerosis) (7) HTN (hypertension) (8) Migraine (9) Pancreatitis (10) PD catheter (11) Peritoneal dialysis catheter in place (12) Prolonged QT interval (13) Pulmonary embolism (14) Renal failure (15) Tunnel catheter Surgical Problems: (1) H/O section (2) H/O eye surgery (3) H/O hernia repair (4) H/O knee surgery (5) H/O tubal ligation (6) H/O: (7) History of cholecystectomy (8) Kidney transplant status, living related donor Family History Blood clots FATHER BROTHER Crohn's disease FATHER Diabetes mellitus MOTHER Gallbladder disease Heart disease Hypertension SISTER Lung disease Social History Smoking Status: Current Every Day Smoker Alcohol Use: none Drug Use: none Marital Status: in relationship Housing Status: lives with family Occupation Status: unemployed Current/Historical Medications Scheduled Calcitriol (Calcitriol), 2 CAP PO QAM Calcium Acetate (Phoslo 667 Mg), 3 CAP PO WM Calcium Acetate (Phoslo 667 Mg), 2 CAP PO WITH SNACKS Calcium Acetate (Phoslo 667 Mg), 1 CAP PO WITH "DARK" SODA Calcium Carbonate (Tums), 3 TABS PO DIRECTED Escitalopram Oxalate (Lexapro), 5 MG PO QAM Famotidine (Pepcid), 40 MG PO QAM Gabapentin (Neurontin), 300 MG PO TID Temazepam (Restoril), 15 MG PO HS Vortioxetine HBr (Trintellix), 5 MG PO QAM Scheduled PRN Albuterol Hfa (Ventolin Hfa), 2 PUFFS INH Q4H PRN for SOB/Wheezing Sumatriptan Succinate (Sumatriptan Succinate), 1 TAB PO UD PRN for Migraine Allergies Coded Allergies: Cefaclor (Verified Allergy, Intermediate, Rash, 12/24/17) Reported by PT. Amoxicillin (Verified Adverse Reaction, Mild, VOMITING, 12/24/17) Clavulanic Acid (Verified Adverse Reaction, Mild, VOMITING, 12/24/17) Physical Exam Vital Signs Date Time Temp Pulse Resp B/P (MAP) Pulse Ox O2 Delivery O2 Flow Rate FiO2 12/24/17 15:55 71 18 110/70 100 Room Air 12/24/17 14:03 65 18 101/70 98 Room Air 12/24/17 12:07 36.9 89 18 118/79 99 Room Air Physical Exam GENERAL: Awake, alert, well-appearing, in no distress HENT: Normocephalic, atraumatic. Mild leukoplakia on tongue. Dry mucus membranes. EYES: Normal conjunctiva. Sclera non-icteric. EOMI, LUDMILA NECK: Supple. No nuchal rigidity. FROM. No JVD. RESPIRATORY: Clear to auscultation. CARDIAC: Regular rate, normal rhythm. Extremities warm and well perfused. Pulses equal. ABDOMEN: Soft, non-distended. No tenderness to palpation. No rebound or guarding. No masses. RECTAL: Deferred. MUSCULOSKELETAL: Chest examination reveals no tenderness. The back is symmetrical on inspection without obvious abnormality. There is no CVA tenderness to palpation. No joint edema. LOWER EXTREMITIES: Calves are equal size bilaterally and non-tender. No edema. No discoloration. NEURO: Normal sensorium. No sensory or motor deficits noted. normal cerebellar function with [id number], alternating palms, gsrm-ka-vdja. SKIN: No rash or jaundice noted. Medical Decision & Procedures ER Provider Diagnostic Interpretation: Radiology results as stated below per my review and radiologist interpretation: HEAD WITHOUT CONTRAST (CT) CLINICAL HISTORY: 32 years-old Female presenting with doe, blurred vision. TECHNIQUE: Multidetector CT imaging of the head was performed without the use of intravenous contrast. IV contrast: None. A dose lowering technique was used consistent with the principles of ALARA (as low as reasonably achievable). COMPARISON: 02/25/2017. CT DOSE (mGy.cm): The estimated cumulative dose is 700.35 mGycm. FINDINGS: Exercise Specialist topogram: Unremarkable. Ventricles and sulci normal in size. Brain parenchyma normal in appearance with preserved valadez-white differentiation. No mass effect or midline shift. No hemorrhage or acute territorial infarct. No extra-axial fluid collection. Paranasal sinuses and mastoid air cells clear. Calvarium intact. IMPRESSION: 1. No acute intracranial abnormality. Electronically signed by: Hany Moreno M.D. 12/24/2017 1:36 PM Dictated Date/Time: 12/24/2017 1:34 PM Laboratory Results 12/24/17 13:15 Red Blood Count 3.04, Mean Corpuscular Volume 101.0, Mean Corpuscular Hemoglobin 34.2, Mean Corpuscular Hemoglobin Concent 33.9, Mean Platelet Volume 9.0, Neutrophils (%) (Auto) 78.9, Lymphocytes (%) (Auto) 11.4, Monocytes (%) ( Auto) 4.5, Eosinophils (%) (Auto) 4.8, Basophils (%) (Auto) 0.2, Neutrophils # ( Auto) 7.29, Lymphocytes # (Auto) 1.05, Monocytes # (Auto) 0.42, Eosinophils # ( Auto) 0.44, Basophils # (Auto) 0.02 12/24/17 13:15 Test 12/24/17 13:15 White Blood Count 9.24 K/uL (4.8-10.8) Red Blood Count 3.04 M/uL (4.2-5.4) Hemoglobin 10.4 g/dL (12.0-16.0) Hematocrit 30.7 % (37-47) Mean Corpuscular Volume 101.0 fL (80-100) Mean Corpuscular Hemoglobin 34.2 pg (25-34) Mean Corpuscular Hemoglobin Concent 33.9 g/dl (32-36) Platelet Count 177 K/uL (130-400) Mean Platelet Volume 9.0 fL (7.4-10.4) Neutrophils (%) (Auto) 78.9 % Lymphocytes (%) (Auto) 11.4 % Monocytes (%) (Auto) 4.5 % Eosinophils (%) (Auto) 4.8 % Basophils (%) (Auto) 0.2 % Neutrophils # (Auto) 7.29 K/uL (1.4-6.5) Lymphocytes # (Auto) 1.05 K/uL (1.2-3.4) Monocytes # (Auto) 0.42 K/uL (0.11-0.59) Eosinophils # (Auto) 0.44 K/uL (0-0.5) Basophils # (Auto) 0.02 K/uL (0-0.2) RDW Standard Deviation 55.7 fL (36.4-46.3) RDW Coefficient of Variation 15.3 % (11.5-14.5) Immature Granulocyte % (Auto) 0.2 % Immature Granulocyte # (Auto) 0.02 K/uL (0.00-0.02) Anion Gap 12.0 mmol/L (3-11) Est Creatinine Clear Calc Drug Dose 6.0 ml/min Estimated GFR () 3.3 Estimated GFR (Non- 2.9 BUN/Creatinine Ratio 3.9 (10-20) Calcium Level 8.3 mg/dl (8.5-10.1) Phosphorus Level 5.4 mg/dl (2.5-4.9) Magnesium Level 2.2 mg/dl (1.8-2.4) Total Bilirubin 0.4 mg/dl (0.2-1) Direct Bilirubin 0.1 mg/dl (0-0.2) Aspartate Amino Transf (AST/SGOT) 10 U/L (15-37) Alanine Aminotransferase (ALT/SGPT) 15 U/L (12-78) Alkaline Phosphatase 111 U/L (45-117) Total Protein 7.9 gm/dl (6.4-8.2) Albumin 3.3 gm/dl (3.4-5.0) Lipase 229 U/L (73-393) Human Chorionic Gonadotropin, Qual NEG (NEG) Laboratory results reviewed by me Medications Administered Medications (Trade) Dose Ordered Sig/Sachin Route Start Time Stop Time Status Last Admin Dose Admin Metoclopramide HCl (Reglan Inj) 10 mg NOW STAT IV 12/24/17 12:18 12/24/17 12:27 DC 12/24/17 13:19 10 MG Diphenhydramine HCl (Benadryl Inj) 25 mg NOW STAT IV 12/24/17 12:18 12/24/17 12:27 DC 12/24/17 13:19 25 MG ECG Per My Interpretation Indication: nausea Rate (beats per minute): 69 Rhythm: normal sinus Findings: no acute ischemic change, other (normal axis) ED Course 1216: The patient was evaluated in room B12B. A complete history and physical exam was performed. 1515: I reevaluated the patient and she was resting comfortably. Discussed results and discharge instructions: She verbalized understanding and agreement. The patient is ready for discharge. Medical Decision I reviewed the patient's past medical history, medications, and the nursing notes as described above. Differential diagnosis: Etiologies such as migraine headache, meningitis, sinusitis, CO exposure, ICH, SAH, infection, tumor, headache, sinus thrombosis, arterial dissection, as well as others were entertained. The patient is a 32 y/o woman with a pmhx of ESRD on peritoneal dialysis, migraines who presents to the emergency department with persistent intermittent HAs with blurred vision after having minor head injury when a TV table hit her in the head 6 days ago per HPI. On arrival the patient is in NAD, AFVSS. Neuro intact including normal cerebellar function with ijtugo-[id number], alternating palms, qxmn-sj-rutx. EOMi/no dysconjugate gaze. PEARRL. CT head unremarkable. Labs unremarkable c/w ESRD. c/w mild dehydration. Patient declines gentle IVF, says she will drink more water. Improved after Reglan and Benadryl. Sx most likely related to minor concussion. Plan for pcp f/u. Findings and plan for follow-up reviewed with patient. Patient agreeable and d/c'd per discharge instructions. Medication Reconcilliation Current Medication List: was personally reviewed by me Blood Pressure Screening Patient's blood pressure: Normal blood pressure Blood pressure disposition: Did not require urgent referral Impression Primary Impression: Concussion Scribe Attestation The scribe's documentation has been prepared under my direction and personally reviewed by me in its entirety. I confirm that the note above accurately reflects all work, treatment, procedures, and medical decision making performed by me. Departure Information Dispostion Home / Self-Care Referrals Adolph Aldridge M.D. (PCP) Forms HOME CARE DOCUMENTATION FORM, IMPORTANT VISIT INFORMATION Patient Instructions ED Concussion, My [facility] Additional Instructions Please follow up with your primary care physician in the next 1-3 days for re- evaluation. You may have a mild concussion that is further exacerbated by your migraine history. Otherwise, your exam and lab results did not show signs of an emergent condition at this time. Continue your current medications. Return to the emergency department for worsening symptoms as described in the accompanying instructions.
[2017-12-24 13:25] LABS: BASO % 0.2 %; BASO ABS # 0.02 K/uL (0-0.2); EOS % 4.8 %; EOS ABS # 0.44 K/uL (0-0.5); HEMATOCRIT 30.7 % (37-47); HEMOGLOBIN 10.4 g/dL (12.0-16.0); IG# 0.02 K/uL (0.00-0.02); LYMPH % 11.4 %; LYMPH ABS # 1.05 K/uL (1.2-3.4); MEAN CORPUSCULAR HEMOGLOBIN 34.2 pg (25-34); MEAN CORPUSCULAR HGB CONC 33.9 g/dl (32-36); MONO % 4.5 %; MONO ABS # 0.42 K/uL (0.11-0.59); NEUT % 78.9 %; NEUT ABS # 7.29 K/uL (1.4-6.5); PLATELET COUNT 177 K/uL (130-400); RED CELL DISTRIBUTION WIDTH CV 15.3 % (11.5-14.5); RED CELL DISTRIBUTION WIDTH SD 55.7 fL (36.4-46.3); WHITE BLOOD COUNT 9.24 K/uL (4.8-10.8)
--- NOTE | 2017-12-24 13:37 | DIAGNOSTIC IMAGING REPORT ---
HEAD WITHOUT CONTRAST (CT) CLINICAL HISTORY: 32 years-old Female presenting with doe, blurred vision. TECHNIQUE: Multidetector CT imaging of the head was performed without the use of intravenous contrast. IV contrast: None. A dose lowering technique was used consistent with the principles of ALARA (as low as reasonably achievable). COMPARISON: 02/25/2017. CT DOSE (mGy.cm): The estimated cumulative dose is 700.35 mGycm. FINDINGS: Break And Load Operator topogram: Unremarkable. Ventricles and sulci normal in size. Brain parenchyma normal in appearance with preserved valadez-white differentiation. No mass effect or midline shift. No hemorrhage or acute territorial infarct. No extra-axial fluid collection. Paranasal sinuses and mastoid air cells clear. Calvarium intact. IMPRESSION: 1. No acute intracranial abnormality. Electronically signed by: Hany Moreno M.D. 12/24/2017 1:36 PM Dictated Date/Time: 12/24/2017 1:34 PM
[2017-12-24] MEDS ORDERED: ESCI5TAB PO (13:45)
[2017-12-24] MEDS ORDERED: GABA-113 PO (13:45)
[2017-12-24 14:00] LABS: ALBUMIN 3.3 gm/dl (3.4-5.0); CALCIUM 8.3 mg/dl (8.5-10.1); CREATININE 14.8 mg/dl (0.60-1.20); PHOSPHORUS 5.4 mg/dl (2.5-4.9); TOTAL PROTEIN 7.9 gm/dl (6.4-8.2)
[2017-12-24 15:55] VITALS: BP 110/70; PULSE 71; O2SAT 100
== END 2017-12-24 16:14 | disposition home or self-care (01) ==
LOC: C.EDB 12:05
DX: S06.0X0A Concussion without loss of consciousness, initial encounter (principal); R51 Headache; H53.8 Other visual disturbances; W22.8XXA Striking against or struck by other objects, initial encounter; I13.11 Hypertensive heart and chronic kidney disease without heart failure, with stage 5 chronic kidney disease, or end stage renal disease; E11.22 Type 2 diabetes mellitus with diabetic chronic kidney disease; N18.5 Chronic kidney disease, stage 5; Z99.2 Dependence on renal dialysis; Z79.899 Other long term (current) drug therapy; F17.210 Nicotine dependence, cigarettes, uncomplicated; Z86.79 Personal history of other diseases of the circulatory system; Z87.19 Personal history of other diseases of the digestive system; Z82.49 Family history of ischemic heart disease and other diseases of the circulatory system; Z83.79 Family history of other diseases of the digestive system

== ENCOUNTER 2017-12-28 07:40 | Emergency (ER) | payer OTHER ==
[~2017-12-28] VITALS: Ht 167.6 cm; Wt 85.0 kg
[~2017-12-28 07:40] MED LIST changes: +ESCI5TAB PO; +GABA-113 PO; -POTA-639 PO; -ULT50 PO
[2017-12-28 07:45] VITALS: Ht 167.6 cm; Wt 85.0 kg
[2017-12-28] MEDS ORDERED: TRAMADOL HCL 50 MG TAB PO STA (07:53)
[2017-12-28] MEDS ORDERED: LXP10 PO (08:05)
--- NOTE | 2017-12-28 08:16 | DIAGNOSTIC IMAGING REPORT ---
HEAD WITHOUT CONTRAST (CT) CLINICAL HISTORY: 32 years-old Female presenting with CHI w/ syncope, headache since 12/24/2017. TECHNIQUE: Multidetector CT imaging of the head was performed without the use of intravenous contrast. IV contrast: None. A dose lowering technique was used consistent with the principles of ALARA (as low as reasonably achievable). COMPARISON: 12/24/2017. CT DOSE (mGy.cm): The estimated cumulative dose is 537.48 mGy.cm. FINDINGS: Duralumin Mechanic topogram: Unremarkable. Ventricles and sulci normal in size. Brain parenchyma normal in appearance with preserved valadez-white differentiation. No mass effect or midline shift. No hemorrhage or acute territorial infarct. No extra-axial fluid collection. Paranasal sinuses and mastoid air cells clear. Calvarium intact. IMPRESSION: 1. No acute intracranial abnormality. Electronically signed by: Hany Moreno M.D. 12/28/2017 8:15 AM Dictated Date/Time: 12/28/2017 8:13 AM
[2017-12-28] MEDS ORDERED: TRAM-10 PO (09:06)
[2017-12-28 09:39] VITALS: BP 117/72; PULSE 74; TEMP 36.7; O2SAT 100
--- NOTE | 2017-12-28 10:40 | EMERGENCY ROOM VISIT NOTE ---
History First contact with patient: 07:47 Chief Complaint: HEAD INJURY (MINOR) Stated Complaint: PASSED OUT AND HIT HEAD History of Present Illness The patient is a 32 year old female who presents to the Emergency Room with complaints of head injury after she passed out in her elevator on Saturday. The patient reports a history of hypertension. She has been worked up extensively for this by Dr. Jo. The patient reports that even at rest her blood pressure sometimes will dip down into the 40s systolic. The patient is convinced that the same thing happened in the elevator. Her boyfriend was with her at the time, and reported that she hit her head pretty hard on the elevator wall. The patient has had a generalized headache, nausea and vomiting since that time. She denies any other injuries, including neck pain or back pain. She has been taking Tylenol without relief of her pain, and rates her discomfort a 9 out of 10. Review of Systems 10 system review was performed and was negative except for pertinent positives and negatives as indicated in history of present illness Past Medical/Surgical History Medical Problems: (1) Anemia (2) CKD (chronic kidney disease) stage V requiring chronic dialysis (3) Diastolic CHF (4) DM2 (diabetes mellitus, type 2) (5) Fistula of artery (6) FSGS (focal segmental glomerulosclerosis) (7) HTN (hypertension) (8) Migraine (9) Pancreatitis (10) PD catheter (11) Peritoneal dialysis catheter in place (12) Prolonged QT interval (13) Pulmonary embolism (14) Renal failure (15) Tunnel catheter Surgical Problems: (1) H/O section (2) H/O eye surgery (3) H/O hernia repair (4) H/O knee surgery (5) H/O tubal ligation (6) H/O: (7) History of cholecystectomy (8) Kidney transplant status, living related donor Family History Blood clots FATHER BROTHER Crohn's disease FATHER Diabetes mellitus MOTHER Gallbladder disease Heart disease Hypertension SISTER Lung disease Social History Smoking Status: Never Smoker Alcohol Use: none Drug Use: none Marital Status: in relationship Housing Status: lives with family Occupation Status: unemployed Current/Historical Medications Scheduled Calcitriol (Calcitriol), 2 CAP PO QAM Calcium Acetate (Phoslo 667 Mg), 3 CAP PO WM Calcium Acetate (Phoslo 667 Mg), 2 CAP PO WITH SNACKS Calcium Acetate (Phoslo 667 Mg), 1 CAP PO WITH "DARK" SODA Calcium Carbonate (Tums), 3 TABS PO DIRECTED Escitalopram Oxalate (Escitalopram Oxalate), 10 MG PO DAILY Famotidine (Pepcid), 40 MG PO QAM Gabapentin (Neurontin), 300 MG PO TID Temazepam (Restoril), 15 MG PO HS Vortioxetine HBr (Trintellix), 5 MG PO QAM Scheduled PRN Albuterol Hfa (Ventolin Hfa), 2 PUFFS INH Q4H PRN for SOB/Wheezing Sumatriptan Succinate (Sumatriptan Succinate), 1 TAB PO UD PRN for Migraine Tramadol (Ultram), 1-2 TAB PO Q4H PRN for Pain Physical Exam Vital Signs Date Time Temp Pulse Resp B/P (MAP) Pulse Ox O2 Delivery O2 Flow Rate FiO2 12/28/17 09:39 36.7 74 18 117/72 100 12/28/17 08:04 18 12/28/17 07:45 36.7 91 20 110/74 100 Room Air Physical Exam CONSTITUTIONAL: Healthy and well nourished. Alert and oriented X 3 with positive affect. Patient appears in moderate discomfort from pain. GCS 15. HEENT: Normocephalic, atraumatic. Pupils equal, round and reactive. No scalp hematomas, subconjunctival hemorrhage or hemotympanum. NECK: Full active range of motion without discomfort. RESPIRATORY: Clear to auscultation bilaterally with no wheezing, crackles, rhonchi or stridor. CARDIOVASCULAR: Regular rate and rhythm with no murmurs, rubs or gallops. GASTROINTESTINAL: Bowel sounds present in all quadrants. Abdomen is soft and nontender to palpation. MUSCULOSKELETAL: Full range of motion of all joints without discomfort. No tenderness to palpation across the shoulders or through the thoracolumbar spine. Equal handgrip bilaterally. INTEGUMENTARY: No rash or other significant dermatologic conditions noted. NEUROLOGIC: Cranial nerves II-XII grossly intact. No focal neurologic deficits noted. Negative pronator drift. No ataxia with ambulation. Medical Decision & Procedures ER Provider Diagnostic Interpretation: Noncontrast CT of the head does not show any intracranial bleed, midline shift or mass-effect. Radiologist report is as follows: HEAD WITHOUT CONTRAST (CT) CLINICAL HISTORY: 32 years-old Female presenting with CHI w/ syncope, headache since 12/24/2017. TECHNIQUE: Multidetector CT imaging of the head was performed without the use of intravenous contrast. IV contrast: None. A dose lowering technique was used consistent with the principles of ALARA (as low as reasonably achievable). COMPARISON: 12/24/2017. CT DOSE (mGy.cm): The estimated cumulative dose is 537.48 mGy.cm. FINDINGS: Service Sprinkler Helper topogram: Unremarkable. Ventricles and sulci normal in size. Brain parenchyma normal in appearance with preserved valadez-white differentiation. No mass effect or midline shift. No hemorrhage or acute territorial infarct. No extra-axial fluid collection. Paranasal sinuses and mastoid air cells clear. Calvarium intact. IMPRESSION: 1. No acute intracranial abnormality. Medications Administered Medications (Trade) Dose Ordered Sig/Sachin Route Start Time Stop Time Status Last Admin Dose Admin Tramadol HCl (Ultram Tab) 50 mg ONE STAT PO 12/28/17 07:53 12/28/17 07:55 DC 12/28/17 08:04 50 MG ED Course Patient history and physical exam were performed. Nurse's notes were reviewed. Vital signs were reviewed. Patient is normotensive with a BP of 110/74. She is not tachycardic. Review of the [place] Prescription Drug Monitoring Program shows that her PCP has prescribed her Ultram in the past for pain. The patient was administered Ultram 50 mg for her discomfort. Noncontrast CT of the head was normal. The patient was advised that her symptoms are secondary to a concussion. A concussion handout was provided. Patient was instructed to limit activities until symptoms improve. The patient was prescribed Ultram as needed for pain. She was encouraged to continue with Tylenol for additional baseline pain relief. I did encourage the patient to follow-up with her PCP as needed for further concussion management. The patient voiced understanding of all discharge instructions, was happy with plan of care, and rated her headache a 5 out of 10 at the conclusion of my exam. Medical Decision [place] Drug Monitoring Program Search Results: patient reviewed within database, no issues identified Medication Reconcilliation Current Medication List: was personally reviewed by me Blood Pressure Screening Patient's blood pressure: Normal blood pressure Impression Primary Impression: Concussion Departure Information Prescriptions Tramadol (Ultram) 50 Mg Tab 1-2 TAB PO Q4H Y for Pain, #15 TAB For Initial Treatment Prov: Tyrell Canchola PA 12/28/17 Referrals No Doctor, Assigned (PCP) Patient Instructions My [facility] Problem Qualifiers Primary Impression: Concussion Encounter type: initial encounter Loss of consciousness presence/duration: with LOC of 30 min or less Qualified Codes: S06.0X1A - Concussion with loss of consciousness of 30 minutes or less, initial encounter
== END 2017-12-28 09:40 | disposition home or self-care (01) ==
LOC: C.EDB 07:41 → C.EDA 09:40
DX: S06.0X1A Concussion with loss of consciousness of 30 minutes or less, initial encounter (principal); W19.XXXA Unspecified fall, initial encounter; I13.11 Hypertensive heart and chronic kidney disease without heart failure, with stage 5 chronic kidney disease, or end stage renal disease; E11.22 Type 2 diabetes mellitus with diabetic chronic kidney disease; N18.5 Chronic kidney disease, stage 5; Z99.2 Dependence on renal dialysis; Z94.0 Kidney transplant status; Z79.899 Other long term (current) drug therapy; Z86.79 Personal history of other diseases of the circulatory system; Z87.19 Personal history of other diseases of the digestive system; Z82.49 Family history of ischemic heart disease and other diseases of the circulatory system; Z83.79 Family history of other diseases of the digestive system

== ENCOUNTER 2018-01-19 13:43 | Emergency (ER) | payer OTHER ==
[~2018-01-19] VITALS: Ht 162.6 cm; Wt 88.1 kg
[~2018-01-19 13:43] MED LIST changes: -ESCI5TAB PO; +LXP10 PO; +TRAM-10 PO
[2018-01-19 13:54] VITALS: TEMP 36.6; Ht 162.6 cm; Wt 88.1 kg
[2018-01-19] MEDS ORDERED: OXYCODONE/ACETAMINOPHEN 5-325 TAB PO STA ×2 (14:01→15:43)
[2018-01-19] MEDS ORDERED: IBUPROFEN 200 MG TAB PO STA (14:01)
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
[2018-01-19] MEDS ORDERED: POTA20TA13 PO (15:35)
[2018-01-19] MEDS ORDERED: OXYC-57 PO (15:45)
[2018-01-19 15:51] VITALS: BP 127/86; PULSE 98; O2SAT 97
[2018-01-19] MEDS ORDERED: PERCOCET HOME PACK PO ONE (16:30)
== END 2018-01-19 16:20 | disposition home or self-care (01) ==
LOC: EDBD 13:43 → C.EDB 13:44
DX: T74.11XA Adult physical abuse, confirmed, initial encounter (principal); S00.83XA Contusion of other part of head, initial encounter; S60.211A Contusion of right wrist, initial encounter; Y04.2XXA Assault by strike against or bumped into by another person, initial encounter; Y07.03 Male partner, perpetrator of maltreatment and neglect; N18.5 Chronic kidney disease, stage 5; I50.30 Unspecified diastolic (congestive) heart failure; E11.22 Type 2 diabetes mellitus with diabetic chronic kidney disease; I13.11 Hypertensive heart and chronic kidney disease without heart failure, with stage 5 chronic kidney disease, or end stage renal disease; Z99.2 Dependence on renal dialysis; Z79.899 Other long term (current) drug therapy

== ENCOUNTER 2018-03-19 09:50 | Inpatient (IN) | payer OTHER ==
[~2018-03-19] VITALS: Ht 167.6 cm; Wt 82.8 kg
[~2018-03-19 09:50] MED LIST changes: +AZIT-60 PO; +ESCI1TAB18 PO; -LXP10 PO; +ONDA4TAB10 SL; +POTA20TA13 PO; +PRED20TA2 PO; -TRAM-10 PO
[2018-03-19] MEDS ORDERED: ONDANSETRON INJ 2 MG/ML 2 ML VIAL IV STA (09:58)
[2018-03-19] MEDS ORDERED: GI COCKTAIL PO STA (09:58)
[2018-03-19] MEDS ORDERED: ACETAMINOPHEN 500 MG TAB PO STA (09:58)
[2018-03-19] MEDS ORDERED: FAMOTIDINE 20 MG TAB PO ONE (10:00)
[2018-03-19] MEDS ORDERED: MoRPHine SULFATE 10 MG/ML CARP/VIAL ONE (11:04)
[2018-03-19] MEDS ORDERED: PIPERACILLIN/TAZOBACTAM 4.5 GM/100ML D5W ONE (11:45)
[2018-03-19] MEDS ORDERED: BENZ100C84 PO (11:57)
[2018-03-19] MEDS ORDERED: TRMO2580 TOP (11:57)
--- NOTE | 2018-03-19 12:30 | DIAGNOSTIC IMAGING REPORT ---
CT SCAN OF THE ABDOMEN AND PELVIS WITHOUT CONTRAST CLINICAL HISTORY: Generalized abdominal pain COMPARISON STUDY: October 07, 2017 TECHNIQUE: CT scan of the abdomen and pelvis was performed from the lung bases to the proximal femurs. Images are reviewed in the axial, sagittal, and coronal planes. IV contrast was not administered for this examination. A dose lowering technique was utilized adhering to the principles of ALARA. CT DOSE: 1062.79 mGycm FINDINGS: Lower chest: The heart is normal in size and configuration, without pericardial effusion. The lung bases and pleural spaces are clear. Liver: The unenhanced liver is normal in size, contour, and attenuation. There is no intrahepatic biliary ductal dilatation. Gallbladder: Surgically absent Spleen: Normal in size and attenuation. Pancreas: Unremarkable. Adrenal glands: The kidneys are Kidneys: The date of kidneys are markedly atrophic. There is a calcified right lower quadrant mass, likely representing a calcified renal transplant. Bowel: There are no transition zones to indicate bowel obstruction. There are no findings to indicate acute appendicitis. Peritoneum: There is a peritoneal dialysis catheter present. There is moderate ascitic fluid present within the abdomen. Vasculature: The abdominal aorta is normal in course and caliber. Adenopathy: None. Pelvic viscera: Again evident is a suspected 29 mm right ovarian cyst/follicle. Skeletal structures: There are mild SI joint erosive changes. IMPRESSION: 1. No evidence of bowel obstruction. No evidence of free air 2. Moderate ascitic fluid similar to the preceding study. A peritoneal dialysis catheter is again visualized 3. Suspected sacroiliitis Electronically signed by: Win Foster M.D. 03/19/2018 12:29 PM Dictated Date/Time: 03/19/2018 12:24 PM
[2018-03-19] MEDS ORDERED: FENTANYL CITRATE INJ 50 MCG/1 ML 2 ML VIAL IV ONE (13:00)
[2018-03-19 13:02] LABS: BASO % 0.1 %; BASO ABS # 0.02 K/uL (0-0.2); EOS % 1.6 %; HEMATOCRIT 34.5 % (37-47); HEMOGLOBIN 11.8 g/dL (12.0-16.0); IG# 0.11 K/uL (0.00-0.02); LYMPH % 7.8 %; LYMPH ABS # 1.49 K/uL (1.2-3.4); MEAN CELL VOLUME 102.7 fL (80-100); MEAN CORPUSCULAR HEMOGLOBIN 35.1 pg (25-34); MEAN CORPUSCULAR HGB CONC 34.2 g/dl (32-36); MEAN PLATELET VOLUME 9.9 fL (7.4-10.4); MONO % 5.1 %; MONO ABS # 0.98 K/uL (0.11-0.59); NEUT % 84.8 %; NEUT ABS # 16.26 K/uL (1.4-6.5); NUCLEATED RED BLOOD CELL ABS 0.06 K/uL (0-0); PLATELET COUNT 264 K/uL (130-400); RED CELL DISTRIBUTION WIDTH CV 14.5 % (11.5-14.5); RED CELL DISTRIBUTION WIDTH SD 53.4 fL (36.4-46.3); WHITE BLOOD COUNT 19.16 K/uL (4.8-10.8)
--- NOTE | 2018-03-19 13:09 | DIAGNOSTIC IMAGING REPORT ---
CHEST ONE VIEW PORTABLE CLINICAL HISTORY: WBC elevated, r/o source of infection COMPARISON STUDY: 03/09/2018 FINDINGS: The bones soft tissues and hemidiaphragms are normal. The cardiomediastinal silhouette is normal. The lungs are clear. The pulmonary vasculature is normal. IMPRESSION: Negative chest. The above report was generated using voice recognition software. It may contain grammatical, syntax or spelling errors. Electronically signed by: Adolph Rizo M.D. 03/19/2018 1:08 PM Dictated Date/Time: 03/19/2018 1:08 PM
[2018-03-19 13:12] LABS: ALBUMIN 3.6 gm/dl (3.4-5.0); ALKALINE PHOSPHATASE 95 U/L (45-117); ALT/SGPT 27 U/L (12-78); AST/SGOT 13 U/L (15-37); BLOOD UREA NITROGEN 57 mg/dl (7-18); CALCIUM 10.9 mg/dl (8.5-10.1); CARBON DIOXIDE 24 mmol/L (21-32); GLUCOSE 179 mg/dl (70-99); LIPASE 163 U/L (73-393); POTASSIUM 2.9 mmol/L (3.5-5.1); SODIUM 133 mmol/L (136-145); TOTAL PROTEIN 8.5 gm/dl (6.4-8.2)
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
[2018-03-19 13:50] VITALS: O2SAT 94; Ht 167.6 cm; Wt 82.8 kg
[2018-03-19] MEDS ORDERED: ONDANSETRON INJ 2 MG/ML 2 ML VIAL IV PRN (14:00)
[2018-03-19] MEDS ORDERED: POTASSIUM CHLORIDE 10 MEQ TABCR PO ONE (15:30)
[2018-03-19 15:42] VITALS: BP 92/62; PULSE 84; TEMP 36.3; O2SAT 99
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
[2018-03-19] MEDS ORDERED: GLUCOSE 40% GEL 15 GM TUBE PO PRN (16:30)
[2018-03-19] MEDS ORDERED: CARBOHYDRATES FOR HYPOGLYCEMIA PO PRN (16:30)
[2018-03-19] MEDS ORDERED: GLUCAGON FOR INJ 1 MG VIAL SQ PRN (16:30)
[2018-03-19] MEDS ORDERED: DEXTROSE 50% 50 ML SYR IV PRN (16:30)
[2018-03-19] MEDS ORDERED: GLUCOSE 10 TABS/TUBE PO PRN (16:30)
[2018-03-19 17:25] LABS: INR 0.9 (0.9-1.1)
[2018-03-19] MEDS: MoRPHine SULFATE 2 MG/ML CARP IV PRN ×2 (17:48→23:30)
[2018-03-19] MEDS: INSULIN ASPART 100 UNITS/ML 3 ML PEN SC SCH ×2 (18:07→21:00)
--- NOTE | 2018-03-19 19:29 | Nephrology Consultation ---
Nephrology Consultation Date of Consultation: Mar 19, 2018. Attending Physician: Dr Davis Requesting Physician: Dr Davis Reason for Consultation: ESRD on PD w/ abd pain History of Present Illness 32 year old female w/ ESRD on PD, hx of failed renal txplt, DM, active tobacco abuse, recurrent bronchitis admitted for evaluation of abdominal pain and GI symptoms. She had called the outpt PD nurse this am to report multiple bouts of emesis this am and generalized weakness but stated that her PD fluid was clear. Noted also on recent outpt dialysis labs to have WBC 18K (no date given for that lab; has been getting steroids for bronchitis this month). She was advised to come to ER for evaluation. Of note this pt has had 4 visits to ER in February before today's admission >> for syncope, chest pain, bronchitis; and once on 02/24 for burning / pain at PD cath site. No redness or purulent drainage was found at exit site; pt did report at that time that PD fluid was "darker than previous" exchanges; d/c home w/o call to nephrology and advised to call Dr. Claudio next day. Pt did not mention this ER visit regarding exit site concerns at 03/14 outpatient PD clinic visit with me; did mention her ongoing sinus/bronchitis sx. Today my dialysis nurse obtained pd fluid to evaluate for peritonitis>> drainage was light pink today. Had hemoperitoneum in past from ruptured ovarian cyst; from blood thinners at prior admissions. The pt had zosyn in ER. states she has been doing her routine PD at home but was having intermittent abdominal pain for a few days, cesar w/ her fills but not drains "like my stomach is getting ripped out." Past Medical/Surgical History -FSGS s/p failed kidney transplant now ESRD on peritoneal dialysis -DM -migraines -recurrent evaluations for hypotension late 2016/early 2017 -chronic intermittent diarrhea -pancreatitis x 2 s/p cholecystectomy -active tobacco abuse -recurrent bronchitis/ sinusitis s/p recent course of abtx/ prednisone for same -longstanding rash on extremities Family History Blood clots FATHER BROTHER Crohn's disease FATHER Depression FATHER ( due to Suicide in 2018) Diabetes mellitus MOTHER FH: hyperthyroidism MOTHER SISTER FH: hypothyroidism Gallbladder disease Heart disease Hypertension SISTER Lung disease Social History Smoking Status: Current Every Day Smoker Alcohol Use: none Drug Use: none Marital Status: in relationship Housing Status: lives with family Occupation Status: unemployed Allergies Coded Allergies: Cefaclor (Verified Allergy, Intermediate, Rash, 03/09/18) Reported by PT. Amoxicillin (Verified Adverse Reaction, Mild, VOMITING, 03/09/18) Clavulanic Acid (Verified Adverse Reaction, Mild, VOMITING, 03/09/18) Medications Current Inpatient Medications Medications (Trade) Dose Ordered Sig/Sachin Route Start Time Stop Time Status Last Admin Dose Admin Acetaminophen (Tylenol Tab) 650 mg Q4H PRN PO 03/19/18 14:00 04/18/18 13:59 Heparin Sodium (Porcine) (Heparin Sq 5000 Unit/0.5ml) 5,000 unit Q8 SQ 03/19/18 22:00 04/18/18 21:59 UNV Escitalopram Oxalate (Lexapro Tab) 20 mg HS PO 03/19/18 21:00 04/18/18 20:59 Famotidine (Pepcid Tab) 40 mg QAM PO 03/20/18 08:00 04/19/18 08:59 Gabapentin (Neurontin Cap) 300 mg TID PO 03/19/18 20:00 04/18/18 20:59 Temazepam (Restoril Cap) 15 mg HS PO 03/19/18 21:00 04/18/18 20:59 Miscellaneous Information (Order Awaiting Action) 1 ea QS N/A 03/19/18 16:00 04/18/18 15:59 Morphine Sulfate (MoRPHine SULFATE INJ) 2 mg Q6 PRN IV 03/19/18 14:45 04/02/18 14:44 Diphenhydramine HCl (Benadryl Cap) 25 mg TID PRN PO 03/19/18 16:00 04/18/18 15:59 Vortioxetine (Trintellix) 5 mg DAILY PO 03/20/18 08:00 04/19/18 07:59 Promethazine HCl 12.5 mg/Sodium Chloride 50.5 ml @ 204 mls/hr Q6H PRN IV 03/19/18 16:30 04/18/18 16:29 Insulin Aspart (novoLOG ASPART) SLIDING SCALE If C... ACHS SC 03/19/18 16:30 04/18/18 16:29 Glucose (Glucose 40% Gel) 15-30 GRAMS 15 GRAMS... UD PRN PO 03/19/18 16:30 04/18/18 16:29 Glucose (Glucose Chew Tab) 4-8 Tablets 4 Tabl... UD PRN PO 03/19/18 16:30 04/18/18 16:29 Dextrose (Dextrose 50% 50ML Syringe) 25-50ML 25ML FOR ... UD PRN IV 03/19/18 16:30 04/18/18 16:29 Glucagon (Glucagon Inj) 1 mg UD PRN SQ 03/19/18 16:30 04/18/18 16:29 Carbohydrates (Carbohydrates For Hypoglycemia) 15-30 GRAMS 15 grams if BSG 54-69... UD PRN PO 03/19/18 16:30 04/18/18 16:29 Home Meds and Scripts Medications Dose Route/Sig Max Daily Dose Days Date Category Dose Instructions Triamcinolone Acet 0.025% (Triamcinolone Acetonide (Topic) 0.025 % Oin 1 Appln TOP BID 03/19/18 Reported arms and legs Zofran Odt (Ondansetron HCl) 4 Mg Tab 4 Mg SL Q6H 03/09/18 Rx Ventolin Hfa (Albuterol) 200 Puffs/22958 Mcg Aers 2-4 Puffs INH Q6H 03/09/18 Rx Lexapro (Escitalopram Oxalate) 20 Mg Tab 20 Mg PO HS 03/07/18 Reported Neurontin (Gabapentin) 300 Mg Cap 300 Mg PO TID 12/24/17 Reported Phoslo 667 Mg (Calcium Acetate) 667 Mg Cap 1 Cap PO WITH "DARK" SODA 09/28/17 Reported Restoril (Temazepam) 15 Mg Cap 15 Mg PO HS 09/24/17 Reported Sumatriptan Succinate 50 Mg Tab 1 Tab PO UD PRN 09/06/17 Reported Take 1 tab po at onset of migraine and 1 tablet after 2 hrs if continued GARNETT. No more than 2 tablets in 24 hrs Trintellix (Vortioxetine HBr) 5 Mg Tab 5 Mg PO QAM 06/11/17 Reported Calcitriol 0.5 Mcg Cap 3 Mg PO QAM 04/13/17 Reported Pepcid (Famotidine) 40 Mg Tab 40 Mg PO QAM 01/22/17 Reported Phoslo 667 Mg (Calcium Acetate) 667 Mg Cap 2 Cap PO WITH SNACKS 12/02/16 Reported TAKE 2 CAPSULES WITH SNACKS Phoslo 667 Mg (Calcium Acetate) 667 Mg Cap 3 Cap PO WM 11/18/16 Reported Ventolin Hfa (Albuterol) 200 Puffs/67203 Mcg Aers 2 Puffs INH Q4H PRN 07/05/16 Reported Review of Systems Constitutional: + chills, + weakness, + fatigue, No fever Eyes: No worsening of vision ENT: No hearing loss Respiratory: No cough, No shortness of breath Cardiac: No edema, No palpitations Abdomen: + see HPI, + pain, + nausea, + vomiting, + diarrhea (chronic /stable) Musculoskeletal: No joint pain, No muscle pain Female : + problem reported (anuric) Neuro: + weakness, + numbness/tingling, + balance problems Psych: + anxiety Heme: + abnormal bleeding/bruising Endo: + fatigue Skin: + rash Physical Exam Date Time Temp Pulse Resp B/P (MAP) Pulse Ox O2 Delivery O2 Flow Rate FiO2 03/19/18 15:42 36.3 84 18 92/62 (72) 99 Room Air 03/19/18 15:00 86 18 116/78 100 03/19/18 13:50 94 Room Air 03/19/18 12:54 92 General Appearance: WD/WN, no apparent distress, + pertinent finding (on RA, maneuvers readily for exam) Eyes: EOMI ENT: hearing grossly normal Neck: supple Respiratory/Chest: lungs clear, normal breath sounds, no respiratory distress Cardiovascular: regular rate, rhythm, no edema Abdomen: normal bowel sounds, soft, + tenderness (R sided; no rebound or guarding, maneuvers easily for exam; pd exit site pristine) Extremities: no pedal edema Neurologic/Psych: alert, normal mood/affect, oriented x 3 Skin: no jaundice, warm/dry, + rash Diagnostics Last 24 Hours Test 03/19/18 10:17 03/19/18 16:07 03/19/18 17:03 03/19/18 17:13 White Blood Count 19.16 K/uL Red Blood Count 3.36 M/uL Hemoglobin 11.8 g/dL Hematocrit 34.5 % Mean Corpuscular Volume 102.7 fL Mean Corpuscular Hemoglobin 35.1 pg Mean Corpuscular Hemoglobin Concent 34.2 g/dl Platelet Count 264 K/uL Mean Platelet Volume 9.9 fL Neutrophils (%) (Auto) 84.8 % Lymphocytes (%) (Auto) 7.8 % Monocytes (%) (Auto) 5.1 % Eosinophils (%) (Auto) 1.6 % Basophils (%) (Auto) 0.1 % Neutrophils # (Auto) 16.26 K/uL Lymphocytes # (Auto) 1.49 K/uL Monocytes # (Auto) 0.98 K/uL Eosinophils # (Auto) 0.30 K/uL Basophils # (Auto) 0.02 K/uL RDW Standard Deviation 53.4 fL RDW Coefficient of Variation 14.5 % Immature Granulocyte % (Auto) 0.6 % Immature Granulocyte # (Auto) 0.11 K/uL Nucleated RBC Absolute Count (auto) 0.06 K/uL Nucleated Red Blood Cells % 0.3 % Prothrombin Time 9.7 SECONDS Prothromb Time International Ratio 0.9 Sodium Level 133 mmol/L Potassium Level 2.9 mmol/L Chloride Level 92 mmol/L Carbon Dioxide Level 24 mmol/L Anion Gap 17.0 mmol/L Blood Urea Nitrogen 57 mg/dl Creatinine 16.30 mg/dl Estimated GFR () 3.0 Estimated GFR (Non- 2.5 BUN/Creatinine Ratio 3.5 Random Glucose 179 mg/dl Calcium Level 10.9 mg/dl Magnesium Level 2.2 mg/dl Total Bilirubin 0.5 mg/dl Direct Bilirubin 0.2 mg/dl Aspartate Amino Transf (AST/SGOT) 13 U/L Alanine Aminotransferase (ALT/SGPT) 27 U/L Alkaline Phosphatase 95 U/L Total Protein 8.5 gm/dl Albumin 3.6 gm/dl Lipase 163 U/L Human Chorionic Gonadotropin, Qual NEG Bedside Glucose 166 mg/dl Lactic Acid Level 2.9 mmol/L Diagnostic Radiology: cxr > no acute cp process CT abd/pelvis 1. No evidence of bowel obstruction. No evidence of free air 2. Moderate ascitic fluid similar to the preceding study. A peritoneal dialysis catheter is again visualized 3. Suspected sacroiliitis Assessment & Plan 32 y/o F w/ ESRD on PD, s/p failed renal txplt, DM, active tobacco abuse admitted for evaluation of abdominal pain and leukocytosis w/ emesis this am. abdominal pain w/ grossly bloody peritoneal dialysate -PD fluid specimens obtained/ in process -may relate to menses (last had early February) or to another ruptured cyst; no concerning findings to explain this on CT; no convincing evidence of pancreatitis -continue to avoid empiric asa; not on any blood thinners -will give 500 units/L heparin in dialysate however -daily cbc -IF peritonitis, needs pain control and non phos based meds to avoid constipation per primary service ESRD on peritoneal dialysis -will continue PD this evening depending on whether she needs IP abtx or not >> 12 hrs all 1.5% no LBF; if needs abtx, will wait till am for this Hypocalcemia -had 40 mEq po K in ER -recheck in am LOKESH with hypercalcemia -cont calcitriol and binders calcium based as outpt >> will hold phoslo -recheck ca, phos in am> consider renvela instead of phoslo if indicated hypotension -mild; not currently on bp meds; -gave orders to check orthostatics given recent evaluations for syncope, hx of admissions for symptomatic low bp this year; would not necessarily give IVF at this time unless + Appreciate consult; will follow with you.
[2018-03-19] MEDS ORDERED: SODIUM CHLORIDE 0.9% 1000ML 1,000 ML IV SCH (20:00)
[2018-03-19] MEDS ORDERED: SODIUM CHLORIDE 0.9% 1000ML 1,000 ML IV ONE (20:45)
[2018-03-19] MEDS ORDERED: ESCITALOPRAM OXALATE 20 MG TAB PO SCH (21:00)
[2018-03-19] MEDS ORDERED: [UNRECOGNIZED DRUG - OTHER] IP SCH (21:00)
[2018-03-19] MEDS ORDERED: GENTAMICIN IP SCH (21:00)
[2018-03-19] MEDS ORDERED: HEPARIN BOLUS IP SCH (21:00)
[2018-03-19] MEDS ORDERED: VANCOMYCIN IP SCH (21:00)
[2018-03-19 21:43] LABS: BASO % 0.1 %; BASO ABS # 0.02 K/uL (0-0.2); EOS % 2.1 %; EOS ABS # 0.32 K/uL (0-0.5); HEMATOCRIT 32.1 % (37-47); HEMOGLOBIN 10.7 g/dL (12.0-16.0); IG# 0.06 K/uL (0.00-0.02); LYMPH % 13.2 %; LYMPH ABS # 2.05 K/uL (1.2-3.4); MEAN CELL VOLUME 103.2 fL (80-100); MEAN CORPUSCULAR HEMOGLOBIN 34.4 pg (25-34); MEAN CORPUSCULAR HGB CONC 33.3 g/dl (32-36); MEAN PLATELET VOLUME 9.4 fL (7.4-10.4); MONO % 5.6 %; MONO ABS # 0.88 K/uL (0.11-0.59); NEUT % 78.6 %; NEUT ABS # 12.25 K/uL (1.4-6.5); PLATELET COUNT 218 K/uL (130-400); RED CELL DISTRIBUTION WIDTH CV 14.3 % (11.5-14.5); RED CELL DISTRIBUTION WIDTH SD 52.8 fL (36.4-46.3); WHITE BLOOD COUNT 15.58 K/uL (4.8-10.8)
[2018-03-19 22:40] VITALS: BP 111/75; PULSE 82; TEMP 36.5
[2018-03-19 22:46] LABS: CALCIUM 10.3 mg/dl (8.5-10.1); CREATININE 15.8 mg/dl (0.60-1.20); POTASSIUM 3.1 mmol/L (3.5-5.1)
[2018-03-19] MEDS: HEPARIN SOD 5000 UNIT/0.5 ML CARP SQ SCH (23:26)
[2018-03-19] MEDS: GABAPENTIN 300 MG CAP PO SCH (23:28)
[2018-03-19] MEDS: TEMAZEPAM 15 MG CAP PO SCH (23:30)
[2018-03-19 23:56] VITALS: BP 98/64; PULSE 75; TEMP 36.7; O2SAT 97
[2018-03-20] VITALS (8 sets, daily range): BP systolic 89–118; BP diastolic 58–88; PULSE 18–87; TEMP 36.4–36.8; O2SAT 95–100
[2018-03-20] MEDS: HEPARIN SOD 5000 UNIT/0.5 ML CARP SQ SCH ×3 (05:30→22:00)
[2018-03-20] MEDS: MoRPHine SULFATE 2 MG/ML CARP IV PRN ×3 (06:11→18:25)
[2018-03-20 06:57] LABS: HEMATOCRIT 29.3 % (37-47); HEMOGLOBIN 9.8 g/dL (12.0-16.0); MEAN CELL VOLUME 102.8 fL (80-100); MEAN CORPUSCULAR HEMOGLOBIN 34.4 pg (25-34); MEAN CORPUSCULAR HGB CONC 33.4 g/dl (32-36); MEAN PLATELET VOLUME 9.7 fL (7.4-10.4); PLATELET COUNT 193 K/uL (130-400); RED CELL DISTRIBUTION WIDTH CV 14.4 % (11.5-14.5); RED CELL DISTRIBUTION WIDTH SD 53.7 fL (36.4-46.3); WHITE BLOOD COUNT 12.99 K/uL (4.8-10.8)
[2018-03-20 07:43] LABS: CALCIUM 9.6 mg/dl (8.5-10.1); CREATININE 15.5 mg/dl (0.60-1.20); POTASSIUM 3.2 mmol/L (3.5-5.1)
[2018-03-20] MEDS ORDERED: VORTIOXETINE HBR 5 MG TAB PO SCH (08:00)
[2018-03-20] MEDS: GABAPENTIN 300 MG CAP PO SCH ×3 (08:34→22:27)
[2018-03-20] MEDS: FAMOTIDINE 20 MG TAB PO SCH (08:34)
[2018-03-20] MEDS: INSULIN ASPART 100 UNITS/ML 3 ML PEN SC SCH ×4 (08:48→21:42)
[2018-03-20] MEDS ORDERED: CALCITRIOL 0.5 MCG CAP PO SCH (09:00)
[2018-03-20] MEDS ORDERED: POTASSIUM CHLORIDE 20 MEQ TABCR PO STA (11:17)
--- NOTE | 2018-03-20 11:50 | Hospitalist Progress Note ---
Hospitalist Progress Note Date of Service Mar 20, 2018 ~ 8:45. (Maida Cristina PA-C) Subjective Pt evaluation today including: conversation w/ patient, chart review Patient was seen and evaluated at bedside [id number] with nurse present Patient is lying in bed, appears comfortable, complaining of central abdominal pain, stabbing, rated 10/10, nonradiating, waxes and wanes. Denies any further nausea, emesis, diarrhea. Her last bowel movement was yesterday in the ER around noon which was loose. She denies fever, chills, sweats, chest pain, shortness of breath, dizziness, lightheadedness. Did not sleep well last night , takes temazepam at at bedtime requesting this to be increased, or to try Ambien as this has worked in the past. We discussed her prolonged QT in which she states "I have had this for a while." We discussed consulting psychiatry to evaluate psych meds for her prolonged QT. She is in agreement with this. Appetite is fair. Spoke with nurse at bedside who said overnight was uneventful. Patient just completed peritoneal dialysis. Additional Comments: As noted per HPI, 10 systems reviewed and negative unless noted above. (Maida Cristina PA-C) Medications Medications (Trade) Dose Ordered Sig/Sachin Route Start Time Stop Time Status Last Admin Dose Admin Fentanyl Citrate (Fentanyl Inj) 50 mcg NOW ONCE IV 03/19/18 13:00 03/19/18 13:01 DC 03/19/18 13:12 50 MCG Escitalopram Oxalate (Lexapro Tab) 20 mg HS PO 03/19/18 21:00 04/18/18 20:59 03/19/18 23:28 20 MG Famotidine (Pepcid Tab) 40 mg QAM PO 03/20/18 08:00 04/19/18 08:59 03/20/18 08:34 40 MG Gabapentin (Neurontin Cap) 300 mg TID PO 03/19/18 20:00 04/18/18 20:59 03/20/18 08:34 300 MG Temazepam (Restoril Cap) 15 mg HS PO 03/19/18 21:00 04/18/18 20:59 03/19/18 23:30 15 MG Miscellaneous Information (Order Awaiting Action) 1 ea QS N/A 03/19/18 16:00 03/19/18 16:19 DC 03/19/18 16:03 1 EA Potassium Chloride (Klor-Con M10) 40 meq NOW ONCE PO 03/19/18 15:30 03/19/18 15:31 DC 03/19/18 16:03 40 MEQ Morphine Sulfate (MoRPHine SULFATE INJ) 2 mg Q6 PRN IV 03/19/18 14:45 04/02/18 14:44 03/20/18 06:11 2 MG Vortioxetine (Trintellix) 5 mg DAILY PO 03/20/18 08:00 04/19/18 07:59 03/20/18 08:37 5 MG Insulin Aspart (novoLOG ASPART) SLIDING SCALE If C... ACHS SC 03/19/18 16:30 04/18/18 16:29 03/20/18 08:48 3 UNITS Sodium Chloride 1,000 ml @ 50 mls/hr Q20H IV 03/19/18 20:00 03/19/18 20:42 DC 03/19/18 19:46 50 MLS/HR Vancomycin HCl 1000 mg/ Gentamicin Sulfate 40 mg/ Heparin Sodium (Porcine) 1000 unit/[facility] 2,022 ml @ 0 mls/hr 2100 IP 03/19/18 21:00 03/19/18 23:59 DC 03/19/18 22:44 2,000 MLS/HR Sodium Chloride 1,000 ml @ 50 mls/hr Q20H ONCE IV 03/19/18 20:45 03/20/18 16:44 03/19/18 23:28 50 MLS/HR (Maida Cristina, VARUN) Objective Vital Signs Date Time Temp Pulse Resp B/P (MAP) Pulse Ox O2 Delivery O2 Flow Rate FiO2 03/20/18 09:40 108/65 (79) 03/20/18 09:21 Room Air 03/20/18 07:33 36.4 87 18 89/58 (68) 95 Room Air 03/19/18 23:56 36.7 75 20 98/64 (75) 97 Room Air 03/19/18 22:40 36.5 82 111/75 (87) 03/19/18 21:00 Room Air 03/19/18 15:42 36.3 84 18 92/62 (72) 99 Room Air 03/19/18 15:00 86 18 116/78 100 03/19/18 13:50 94 Room Air 03/19/18 12:54 92 (Maida Cristina PA-C) Physical Exam Notes: Gen: WD/WN, NAD,Female, A&O x3, sitting upright in bed, appears comfortable. HEENT: Normocephalic, atraumatic, conjunctivae moist, sclerae anicteric, mucous membranes moist. Lung: Clear to Auscultation bilaterally, no wheezes/rales/rhonchi Heart: Regular rate, regular rhythm, no murmurs, rubs, or gallops Abdomen: Soft throughout, +PD cath, dressing CDI, mild to mod tenderness to periumbilical region extending to suprapubic region, no rebound, no guarding, mcburneys negative, rosving negative, obese, +BS x 4 Extremities: No edema Skin: Warm, no rash, negative turgor. (Maida Cristina PA-C) Laboratory Results Last 24 Hours Item Value Date Time Sodium Level 133 mmol/L L 03/20/18 0607 Potassium Level 3.2 mmol/L L 03/20/18 0607 Chloride Level 94 mmol/L L 03/20/18 0607 Carbon Dioxide Level 26 mmol/L 03/20/18 0607 Blood Urea Nitrogen 58 mg/dl H 03/20/18 0607 Creatinine 15.50 mg/dl *H # 03/20/18 0607 Random Glucose 117 mg/dl H 03/20/18 0607 Bedside Glucose 131 mg/dl H 03/20/18 0742 White Blood Count 12.99 K/uL H 03/20/18 0607 Hemoglobin 9.8 g/dL L 03/20/18 0607 Hematocrit 29.3 % L 03/20/18 0607 Platelet Count 193 K/uL 03/20/18 0607 Lactic Acid Level 1.6 mmol/L 03/19/18 2126 Peritoneal Fluid Color PINK<.br> 03/19/18 1900 Peritoneal Fluid Appearance HAZY 03/19/18 1900 Peritoneal Fluid WBC 69 /uL 03/19/18 1900 Peritoneal Fluid RBC 7000 /uL 03/19/18 1900 Peritoneal Fld Mononuclear WBCs (%) 26.1 % 03/19/181899 Peritoneal Fld Polynuclear WBCs (%) 73.9 % 03/19/181899 (Maida Cristina PA-C) Diagnostic Results ECG: NSR Vent rate 82, prolonged QT of 616ms (Maida Cristina PA-C) Assessment and Plan (1) Abdominal pain Assessment & Plan: This is a 32-year-old white female who has a significant past medical history of 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 Nieves, depression with anxiety, migraine , type 2 diabetes mellitus with most recent A1c 5.5 diet-controlled, chronic anemia who presented to [facility] secondary to abdominal pain. Upon further workup chest x-ray unremarkable, patient reports being anuric, and blood cultures were obtained. On exam she does not appear to have peritoneal symptoms;only mild tenderness however due to elevated WBC and abdominal pain admitting to r/o peritonitis due to peritoneal catheter. Etiology still undetermined however we are ruling out peritonitis secondary to peritoneal catheter. Respiratory ruled out, she is anuric. Lipase within normal limits, lactic acid normal. Other possible etiologies could be [employer] in origin, including 29 mm [address] noted on [address]. Her LMP was 2 weeks ago. If symptoms continue without evidence of peritonitis would order pelvic ultrasound. CT scan also mentioned sacroiliitis however she denies hip pain/low back -Peritoneal fluid sent for cultures, await results -Blood cultures pending -Lactic acid was negative, white blood cell count trended down to 12.9 -She did receive a dose of IP Vanco last evening -We will initiate empiric IV Rocephin 2 g every 24hr, spoke with pharmacy [facility] to confirm dosing secondary to PD -Repeat CBC, CMP, Mag, Phos in a.m. -IV morphine 2 mg every 6 as needed for pain (2) Leukocytosis Assessment & Plan: Plan as above (3) Hypokalemia Assessment & Plan: -Give additional 40 mEq potassium by mouth -Repeat BMP in a.m. (4) Hypercalcemia Assessment & Plan: -Dr. Nieves following -Holding PhosLo and calcitriol -check phos, mag - Repeat CMP in a.m. (5) CKD (chronic kidney disease) stage V requiring chronic dialysis Assessment & Plan: Nephrology on board at the course of PD this a.m. (6) Prolonged QT interval Assessment & Plan: -Repeat ECG in a.m. -Avoid medications that may prolong QT (7) Rash and nonspecific skin eruption Assessment & Plan: -Continue triamcinolone cream -as needed Benadryl -Patient will follow up with dermatology outpatient she had a punch biopsy done 03/18/18 (8) Depression Assessment & Plan: -Continue outpatient Trintellix and Lexapro -QT is more prolonged today to 616 ms -Repeat ECG in a.m. to follow QT -Consult psychiatry ANGÉLICA Reed for further management and discussion of medication secondary to QT prolongation (9) Anemia Assessment & Plan: H&H is currently stable We will monitor CBC (10) DM2 (diabetes mellitus, type 2) Assessment & Plan: Most recent A1c was 5.5, currently diet-controlled on peritoneal dialysis Continue to monitor Accu-Cheks most recent blood sugar was 131 Repeat A1c (Maida Cristina PA-C) ATTENDING ADDENDUM care coordinated with AMY Hood please refer to her notes for full details, I agree with her notes patient seen and examined, records reviewed by myself as well on exam, patient seen walking in the room from the bathroom comfortable , appears to be in good spirits States her abdominal discomfort is more periumbilical sharp,, improving today nausea also improving Denies chest pain, shortness of breath, palpitations no other symptoms VS noted and reviewed oriented 3, not in distress, speaks in sentences with no effort nor accessory muscle use normal rate, regular rhythm, no murmurs clear breath sounds bilaterally non distended, soft, normal bowel sounds, positive mild to moderate tenderness in the periumbilical region upper side upper side Peritoneal catheter in place 12.9 no bipedal edema, erythema, warmth no neuro deficits WBC 12.9 Crea 3.2 ASSESSMENT/PLAN> Abdominal pain, periumbilical Possible peritonitis, on empiric ceftriaxone Possible abdominal wall cellulitis? Rule out ruptured ovarian cyst - Improving Leukocytosis improving -Repeat CT abdomen pelvis continue antibiotics Prolonged QT Likely from Lexapro and trintellix, hypokalemia Hold above meds Replete potassium and magnesium cardiology evaluation other diagnoses and plan of care as per Lila Hood notes Edmar Davis MD (Edmar Davis MD)
[2018-03-20] MEDS: CEFTRIAXONE SOD INJ 2,000 MG in DEXTROSE 5% 50ML 50 ML IV SCH (12:45)
[2018-03-20] MEDS: PROMETHAZINE HCL INJ 12.5 MG in SODIUM CHLORIDE 0.9% 50ML 50 ML IV PRN (13:04)
--- NOTE | 2018-03-20 14:05 | Psychiatric Consultation ---
Consultation Date of Consultation Mar 20, 2018. Identifying Data 32 yo female with ESRD, failed transplant, on PD, admitted to rule out peritonitis. We are consulted regarding psych meds that may be contributing to prolonged QTc. Information is gathered from the patient, and the EHR and considered to be reliable. Chief Complaint "I'm just tired. ". History of Present Illness 32 yo woman with reports of past dx of bipolar disorder with depression and anxiety, admitted to rule out peritonitis. Has end-stage renal disease, failed a renal transplant from her uncle 6 months after the surgery, and is now undergoing peritoneal dialysis until she can get back on the transplant list. During her admission, QTC was noted on EKG to be 616 ms. She denies complaints of chest pain at this time. The patient sees Dr. Lucero at [facility] in [place] for her psychiatric needs and is currently on Lexapro, trend Trintellix , neurontin and restoril. In recent years, the patient had been on Celexa for many years until she was placed on Lexapro more than a year ago. During 1 of her hospital stays, they noted her QT prolongation, took her off of Lexapro and she was then started on Trintellix because it was interpreted to be less harmful to kidneys and heart. At some point, Dr. Almodovar decided to put her back on Lexapro in conjunction with thei Trintellix. She has been aware of her prolonged QTC but is unaware if the decisions regarding her medicines have been further influenced by that. She reports that her mood has been depressed and not sure if her medications are working. She reports insomnia with both difficulty falling asleep as well as staying asleep, saying that she tends to stay up nights doing things that she needs to when worrying about things like buying Carlie presents for 3 children. She reports that her appetite is low , saying that she really does not have an appetite and reports recent weight loss. Her energy is low. Saying that she wants to sleep all the time. She reports being easily distracted, poor concentration. She denies any evidence of auditory or visual hallucinations. She admits that she has had suicidal thoughts in the past and once made a suicidal statement although told the liaison nurse earlier that she did so in order to get attention. She denies that she would ever act on these thoughts as her father committed suicide and she is keenly aware of the impact to family and would not do that to her 3 children. Past Psychiatric History Current OP Treatment: psychiatrist (Dr. Lucero), therapist (Neda at [facility]) Prior Psych Hospitalizations: none Access to a Gun: No Suicide Attempts: No Past Medication Trials kaci Jacobs Past Medical/Surgical History History of Concussion/Seizure: No (1) ESRD (end stage renal disease) (2) Prolonged QT interval (3) PD catheter (4) DM2 (diabetes mellitus, type 2) (5) HTN (hypertension) (6) Anemia (7) Dependence on peritoneal dialysis Allergies Allergies: Coded Allergies: Cefaclor (Verified Allergy, Intermediate, Rash, 03/09/18) Reported by PT. Amoxicillin (Verified Adverse Reaction, Mild, VOMITING, 03/09/18) Clavulanic Acid (Verified Adverse Reaction, Mild, VOMITING, 03/09/18) Home Medications Scheduled Albuterol Hfa (Ventolin Hfa), 2-4 PUFFS INH Q6H Calcitriol (Calcitriol), 3 MG PO QAM Calcium Acetate (Phoslo 667 Mg), 3 CAP PO WM Calcium Acetate (Phoslo 667 Mg), 2 CAP PO WITH SNACKS Calcium Acetate (Phoslo 667 Mg), 1 CAP PO WITH "DARK" SODA Escitalopram Oxalate (Lexapro), 20 MG PO HS Famotidine (Pepcid), 40 MG PO QAM Gabapentin (Neurontin), 300 MG PO TID Ondasetron Odt (Zofran Odt), 4 MG SL Q6H Temazepam (Restoril), 15 MG PO HS Triamcinolone Acetonide (Topic (Triamcinolone Acet 0.025%), 1 APPLN TOP BID Vortioxetine HBr (Trintellix), 5 MG PO QAM Scheduled PRN Albuterol Hfa (Ventolin Hfa), 2 PUFFS INH Q4H PRN for SOB/Wheezing Sumatriptan Succinate (Sumatriptan Succinate), 1 TAB PO UD PRN for Migraine Family History Blood clots FATHER BROTHER Crohn's disease FATHER Depression FATHER ( due to Suicide in 2018) Diabetes mellitus MOTHER FH: hyperthyroidism MOTHER SISTER FH: hypothyroidism Gallbladder disease Heart disease Hypertension SISTER Lung disease History of Suicide: Yes (father) History of Substance Abuse: No Psychiatric History: Yes (father) Alcohol Use Alcohol Use In Past 12 Months: No Smoking Use Smoking Status: Current Every Day Smoker Substance History Recently starting smoking marijuana for sleep Personal History Lives in: [place] Education: graduated from high school, started college (Was studying at [employer] until she got ) Work History: disabled Relationship History: never Children: two sons of her own and fiance has daughter Spiritual Affiliation: Sandie Psychological Trauma History: Significant Loss Review of Systems Constitutional: malaise Eyes: denies: no symptoms, as stated in HPI, eye pain, tearing, itching, redness, discharge, double vision, visual changes, blurred vision, photophobia, other ENT: denies: no symptoms reported, see HPI, ear pain, ear discharge, loss of hearing, tinnitus, nasal pain, nasal congestion, rhinorrhea, epistaxis, sore throat, stidor, throat swelling, mouth pain, mouth swelling, dental pain, gum swelling, other Cardiovascular: denies: no symptoms reported, see HPI, chest pain, chest tightness, chest pressure, diaphoresis, palpitations, syncope, other Respiratory: denies: no symptoms reported, see HPI, cough, orthopnea, short of breath, stridor, wheezing, sputum production, cyanosis, BADILLO, PND, other Gastrointestinal: other (peritoneal dialysis) Genitourinary - Female: denies: no symptoms, see HPI, rash, amenorrhea, dysmenorrhea, menorrhagia, metrorrhagia, , vaginal bleeding, vaginal itching, vaginal discharge, vulvadynia, other Musculoskeletal: denies no symptoms reported, denies see HPI, denies back pain , denies gout, denies joint pain, denies joint swelling, denies muscle pain, denies muscle stiffness, denies neck pain, denies other Integumentary: denies no symptoms reported, denies see HPI, denies change in color, denies change in hair/nails, denies dryness, denies lesions, denies lumps , denies rash, denies other Neurologic: denies: no symptoms, see HPI, headache, numbness, paresthesias, pre -existing deficit, seizure, tingling, tremors, general weakness, tics, focal weakness, vertigo, lethargy, memory loss, dizziness, other Endocrine: denies: no symptoms, as stated in HPI, cold intolerance, heat intolerance, hair changes, goiter, polydipsia, polyuria, skin changes, other Hematologic / Lymphatic: anemia Examination Vital Signs Vital Signs Past 12 Hours Date Time Temp Pulse Resp B/P (MAP) Pulse Ox O2 Delivery O2 Flow Rate FiO2 03/20/18 09:40 108/65 (79) 03/20/18 09:21 Room Air 03/20/18 07:33 36.4 87 18 89/58 (68) 95 Room Air Laboratory Results Last 24 Hours Test 03/19/18 17:03 03/19/18 17:13 03/19/18 19:00 03/19/18 20:40 Bedside Glucose 166 mg/dl 85 mg/dl Lactic Acid Level 2.9 mmol/L Peritoneal Fluid Color PINK<.br> Peritoneal Fluid Appearance HAZY Peritoneal Fluid WBC 69 /uL Peritoneal Fluid RBC 7000 /uL Peritoneal Fld Mononuclear WBCs (%) 26.1 % Peritoneal Fld Polynuclear WBCs (%) 73.9 % Test 03/19/18 21:26 03/20/18 06:07 03/20/18 07:42 03/20/18 11:32 White Blood Count 15.58 K/uL 12.99 K/uL Red Blood Count 3.11 M/uL 2.85 M/uL Hemoglobin 10.7 g/dL 9.8 g/dL Hematocrit 32.1 % 29.3 % Mean Corpuscular Volume 103.2 fL 102.8 fL Mean Corpuscular Hemoglobin 34.4 pg 34.4 pg Mean Corpuscular Hemoglobin Concent 33.3 g/dl 33.4 g/dl Platelet Count 218 K/uL 193 K/uL Mean Platelet Volume 9.4 fL 9.7 fL Neutrophils (%) (Auto) 78.6 % Lymphocytes (%) (Auto) 13.2 % Monocytes (%) (Auto) 5.6 % Eosinophils (%) (Auto) 2.1 % Basophils (%) (Auto) 0.1 % Neutrophils # (Auto) 12.25 K/uL Lymphocytes # (Auto) 2.05 K/uL Monocytes # (Auto) 0.88 K/uL Eosinophils # (Auto) 0.32 K/uL Basophils # (Auto) 0.02 K/uL RDW Standard Deviation 52.8 fL 53.7 fL RDW Coefficient of Variation 14.3 % 14.4 % Immature Granulocyte % (Auto) 0.4 % Immature Granulocyte # (Auto) 0.06 K/uL Sodium Level 132 mmol/L 133 mmol/L Potassium Level 3.1 mmol/L 3.2 mmol/L Chloride Level 92 mmol/L 94 mmol/L Carbon Dioxide Level 25 mmol/L 26 mmol/L Anion Gap 15.0 mmol/L 13.0 mmol/L Blood Urea Nitrogen 59 mg/dl 58 mg/dl Creatinine 15.80 mg/dl 15.50 mg/dl Est Creatinine Clear Calc Drug Dose 5.5 ml/min 5.7 ml/min Estimated GFR () 3.1 3.1 Estimated GFR (Non- 2.6 2.7 BUN/Creatinine Ratio 3.7 3.7 Random Glucose 115 mg/dl 117 mg/dl Lactic Acid Level 1.6 mmol/L Calcium Level 10.3 mg/dl 9.6 mg/dl Hepatitis B Surface Antigen NEG Hepatitis B Surface Antibody NEG Bedside Glucose 131 mg/dl 145 mg/dl Mental Examination During interview pt is: alert and oriented, cooperative Appearance: appropriately dressed, appropriately groomed Eye contact is: good Motor behavior is: no abnormal motor movements Speech: normal in rate, rhythm & volume Affect: blunted Mood is: depressed Thought process: goal directed, linear, logical Thought content: reality based without delusions Suicidal thought are: denied Homicidal thoughts are: denied Hallucinations: denies auditory, denies visual Cognition: memory grossly intact, attention grossly intact, language grossly intact Intelligence estimated to be: average Insight: fair Judgement: fair Impression / Recommendations Impression 32-year-old woman with end-stage renal disease, dependent on peritoneal dialysis , admitted to rule out peritonitis. We are consulted to evaluate her psychiatric medications and the possibility that are contributing to QTC prolongation. It is certainly no secret that antidepressants can contribute to this although she has had a prolonged QT for some time. I do not see where cardiology has directly addressed with QT prolongation and recommendations for management. There is really only one antidepressant that does not prolong QT and that is Cymbalta, although not recommended for use in patients with CrCl < 30. My preference would be to have cardiology weigh in first so we know what to make at this QT prolongation , and then have Dr. Nieves weigh in about the use of cymbalta if needed. The cardiology consult if obtained, should be sent to her outpatient psychiatrist for her records and consideration as well. Her depression at this time is stable, and she is remarkably optimistic and forward thinking, given the severity of her condition, and she meets no criteria for inpatient mental health treatment. Recommendations (1) QT prolongation See discussion above Dr. Janice Angel has personally been involved in the review of this case and development of these recommendations.
--- NOTE | 2018-03-20 14:31 | PROGRESS NOTE ---
DATE: 03/20/2018 PERITONEAL DIALYSIS NOTE SUBJECTIVE: The patient was seen during the peritoneal dialysis. She appears very comfortable and the peritoneal dialysis exchange is going smoothly. The dialysis from her earlier today reveals less redness of the dialysis. She looks very comfortable and was actually writing something on her paper, but when asked she claims she has 10/10 pain. PHYSICAL EXAMINATION: VITAL SIGNS: Blood pressure 108/65, 95% on room air, pulse rate 87, respiratory rate 18, temperature 36.4. GENERAL: Young white female who is not in any distress. HEENT: Mucous membrane is moist. NECK: Supple. LUNGS: Clear, normal breath sounds, no respiratory distress. CARDIOVASCULAR: Regular rate and rhythm, no edema. ABDOMEN: Normal bowel sounds, soft, positive tenderness. EXTREMITIES: No pedal edema. SKIN: No jaundice. Warm, dry. No rash. NEUROLOGIC: Alert, oriented x3. LABORATORY TESTS: Hemoglobin 9.8, WBC count 12.9. It has come down from 19,000 yesterday. Sodium 133, potassium 3.2, BUN 58, creatinine 13.5. Lactic acid 1.6, calcium 9.6. Peritoneal dialysis fluid at 7000, RBC 69, WBC 73 polynuclear and 26% mononuclear. ASSESSMENT AND PLAN: A 32-year-old female with end-stage renal disease on peritoneal dialysis, status post failed renal transplant, diabetes, active tobacco abuse, was admitted for evaluation of abdominal pain and leukocytosis with emesis this morning, abdominal pain with grossly bloody peritoneal dialysis. PD fluid shows predominantly RBC given that there is so much RBC. The cell count differential does not mean anything clinically. She does not look like she has peritonitis. She will continue on the peritoneal dialysis while she is in the hospital. There is also some concern whether she is actually doing PD as prescribed. She is also getting IV ceftriaxone which should cover for most part anyway. If the culture comes back positive, we will treat her otherwise She does not need intraperitoneal antibiotics. MATTHEW
[2018-03-20] MEDS ORDERED: NURSING VERBAL MED ORDER ONE (17:30)
--- NOTE | 2018-03-20 18:54 | DIAGNOSTIC IMAGING REPORT ---
CT SCAN OF THE ABDOMEN AND PELVIS WITHOUT CONTRAST CLINICAL HISTORY: periumbilical pain COMPARISON STUDY: 03/19/2018 TECHNIQUE: CT scan of the abdomen and pelvis was performed from the lung bases to the proximal femurs. Images are reviewed in the axial, sagittal, and coronal planes. IV contrast was not administered for this examination. A dose lowering technique was utilized adhering to the principles of ALARA. CT DOSE: 970.01 mGycm FINDINGS: Lower chest: The heart is normal in size and configuration, without pericardial effusion. The lung bases and pleural spaces are clear. Liver: The unenhanced liver is normal in size, contour, and attenuation. There is no intrahepatic biliary ductal dilatation. Gallbladder: Surgically absent Spleen: Normal in size and attenuation. Pancreas: Unremarkable. Adrenal glands: Unremarkable. Kidneys: The chitina kidneys are atrophic. Bowel: There are no transition zones indicate bowel obstruction. There is no evidence of acute diverticulitis. There are no findings to indicate acute appendicitis Peritoneum: There is decreased fluid within the abdomen and pelvis. A peritoneal dialysis catheter is visualized. There is a calcified mass within the right iliac fossa, likely secondary to an old failed renal transplant. There is mild herniation of the right anterolateral abdominal wall. This remains unchanged. Vasculature: The abdominal aorta is normal in course and caliber. Adenopathy: None. Pelvic viscera: There is a bilobed appearance of the right ovary which appears mildly enlarged. Skeletal structures: No destructive osseous lesions are seen. IMPRESSION: 1. No evidence of bowel obstruction. No evidence of free air 2. Decrease in ascitic fluid. A peritoneal dialysis catheter is again visualized 3. Suspected sacroiliitis 4. Bilobed appearance of the right ovary which appears minimally enlarged 5. Minimal herniation of the right anterolateral abdominal wall, finding unchanged from the prior study. Electronically signed by: Win Foster M.D. 03/20/2018 6:52 PM Dictated Date/Time: 03/20/2018 6:45 PM
[2018-03-20 19:12] LABS: CREATININE 15.3 mg/dl (0.60-1.20)
[2018-03-20] MEDS ORDERED: POTASSIUM CHLORIDE 20 MEQ TABCR PO ONE (20:15)
[2018-03-20] MEDS: TEMAZEPAM 15 MG CAP PO SCH (21:35)
[2018-03-20] MEDS: POTASSIUM CHLR 10 MEQ / WTR 100 ML IV SCH ×2 (21:36→23:17)
[2018-03-21] VITALS (9 sets, daily range): BP systolic 97–111; BP diastolic 62–74; PULSE 76–99; TEMP 36.4–37.3; O2SAT 94–100
[2018-03-21] MEDS: MoRPHine SULFATE 2 MG/ML CARP IV PRN ×3 (00:40→20:32)
[2018-03-21 02:11] LABS: HEMATOCRIT 25.7 % (37-47); HEMOGLOBIN 8.6 g/dL (12.0-16.0); MEAN CELL VOLUME 103.6 fL (80-100); MEAN CORPUSCULAR HEMOGLOBIN 34.7 pg (25-34); MEAN CORPUSCULAR HGB CONC 33.5 g/dl (32-36); PLATELET COUNT 146 K/uL (130-400); RED CELL DISTRIBUTION WIDTH CV 14.2 % (11.5-14.5); RED CELL DISTRIBUTION WIDTH SD 52.8 fL (36.4-46.3); WHITE BLOOD COUNT 10.32 K/uL (4.8-10.8)
[2018-03-21 03:01] LABS: ALBUMIN 2.7 gm/dl (3.4-5.0); CALCIUM 8.9 mg/dl (8.5-10.1); CREATININE 15.5 mg/dl (0.60-1.20); PHOSPHORUS 5.7 mg/dl (2.5-4.9); POTASSIUM 3.5 mmol/L (3.5-5.1); TOTAL PROTEIN 6.5 gm/dl (6.4-8.2)
[2018-03-21] MEDS: HEPARIN SOD 5000 UNIT/0.5 ML CARP SQ SCH ×3 (04:08→20:41)
[2018-03-21 06:31] LABS: HEMOGLOBIN A1C 6.2 % (4.5-5.6)
[2018-03-21] MEDS: INSULIN ASPART 100 UNITS/ML 3 ML PEN SC SCH ×4 (07:00→20:41)
[2018-03-21] MEDS ORDERED: CALCITRIOL 0.25 MCG CAP PO SCH (08:00)
[2018-03-21] MEDS: PROMETHAZINE HCL INJ 12.5 MG in SODIUM CHLORIDE 0.9% 50ML 50 ML IV PRN ×2 (08:29→14:46)
[2018-03-21] MEDS: GABAPENTIN 300 MG CAP PO SCH ×3 (09:00→20:33)
[2018-03-21] MEDS: FAMOTIDINE 20 MG TAB PO SCH (09:00)
[2018-03-21] MEDS: CEFTRIAXONE SOD INJ 2,000 MG in DEXTROSE 5% 50ML 50 ML IV SCH (12:30)
--- NOTE | 2018-03-21 16:07 | Hospitalist Progress Note ---
Hospitalist Progress Note Date of Service Mar 21, 2018 ~8:30. (Maida Cristina PA-C) ATTENDING ADDENDUM care coordinated with AMY Hood please refer to her notes for full details, I agree with her notes patient seen and examined, records reviewed by myself as well on exam, patient seen sitting up in bed, appears comfortable, not in distress States her abdominal discomfort about the same today, 10/10 when worse has occasional productive cough, no fever/chills, dysnea no other symptoms VS noted and reviewed oriented 3, not in distress, speaks in sentences with no effort nor accessory muscle use normal rate, regular rhythm, no murmurs Mild rales bilateral bases, no wheezing non distended, soft, normal bowel sounds, positive mild to moderate tenderness in the periumbilical region upper side upper side Peritoneal catheter in place no bipedal edema, erythema, warmth no neuro deficits WBC 10 Blood cultures negative ASSESSMENT/PLAN> Abdominal pain, periumbilical Possible peritonitis, Possible abdominal wall cellulitis? on empiric ceftriaxone, white count improving -Repeat CT abdomen pelvis no signs of ruptured ovarian cyst: -Pain persisting, we will consult GI Prolonged QT Likely from Lexapro and trintellix, hypokalemia Lexapro decreased, Trental X discontinued Potassium replaced QT interval improved to 495 this morning will repeat EKG in the morning Skin rash Status post punch biopsy of an outpatient revealing suppurative folliculitis Continue triamcinolone 0.1 twice daily per dermatology recommendations Monitor other diagnoses and plan of care as per Lila Hood notes (Edmar Davis MD) Subjective Pt evaluation today including: conversation w/ patient, chart review Patient was seen and evaluated bedside in room 216. She complains of nausea this morning requesting Phenergan. Currently she has no abdominal pain however she just received IV morphine. She denies fever, chills, sweats, chest pain, shortness of breath, lightheadedness, dizziness, emesis, diarrhea. She did have episode of emesis 1 yesterday. She is currently on peritoneal dialysis. Further complains of having bilateral shoulder and neck pain, that started the base of the neck radiates to the bilateral shoulders, not made worse with neck range of motion, made worse with touch, denies associated numbness or tingling we discussed transitioning her from IV morphine to p.o. tramadol to further monitor her abdominal pain. Additional Comments: As noted per HPI, 10 systems reviewed and negative unless noted above. (Maida Cristina PA-C) Objective Vital Signs Date Time Temp Pulse Resp B/P (MAP) Pulse Ox O2 Delivery O2 Flow Rate FiO2 03/21/18 12:05 36.6 84 111/74 (86) 03/21/18 11:21 36.4 84 18 106/64 (78) 100 Room Air 03/21/18 08:00 Room Air 03/21/18 06:41 36.9 92 18 102/66 (78) 99 Room Air 03/21/18 04:18 36.6 76 18 103/67 (79) 100 Room Air 03/21/18 00:38 36.8 88 18 105/65 (78) 96 Room Air 03/20/18 20:00 Room Air 03/20/18 19:38 36.8 82 96/65 (75) 03/20/18 19:01 36.8 82 18 96/65 (75) 100 Room Air 03/20/18 18:54 36.8 118/88 (98) 03/20/18 16:26 36.8 18 118/88 (98) 03/20/18 16:24 36.7 87 107/69 (82) 03/20/18 15:06 36.7 87 18 107/69 (82) 97 Room Air (Maida Cristina PA-C) Physical Exam Notes: Gen: WD/WN female, NAD, A&O x3, she is sitting up in bed and appears comfortable HEENT: Normocephalic, atraumatic, conjunctivae moist, sclerae anicteric, mucous membranes moist. Lung: Clear to Auscultation bilaterally, no wheezes/rales/rhonchi Heart: Regular rate, regular rhythm, no murmurs, rubs, or gallops Abdomen: Soft, mild tenderness to epigastrium, no rebound, no guarding, no rigidity, PD cath in place, obese but not overly distended, +BS x 4 Extremities: No edema Skin: Warm, bilateral erythematous papular rash noted on the anterior surfaces of the bilateral upper and lower extremities, negative turgor. (Maida Cristina PA-C) Laboratory Results Last 24 Hours Item Value Date Time White Blood Count 10.32 K/uL 03/21/18 015 Hemoglobin 8.6 g/dL L 03/21/18156 Hematocrit 25.7 % L 03/21/18156 Platelet Count 146 K/uL 03/21/18156 Sodium Level 134 mmol/L L 03/21/18156 Potassium Level 3.5 mmol/L # 03/21/18 015 Chloride Level 99 mmol/L 03/21/18156 Carbon Dioxide Level 24 mmol/L 03/21/18156 Anion Gap 11.0 mmol/L 03/21/18156 Blood Urea Nitrogen 53 mg/dl H 03/21/18156 Creatinine 15.50 mg/dl *H 03/21/18156 Random Glucose 158 mg/dl H 03/21/18156 Estimated Average Glucose 131 mg/dl 03/21/18156 Hemoglobin A1c 6.2 % H 03/21/18156 Phosphorus Level 5.7 mg/dl H 03/21/18156 Albumin 2.7 gm/dl L 03/21/18156 (Maida Cristina PA-C) Diagnostic Results ECG: NSR Vent rate 80 bpm. QT 495ms which has shortened from previous ecg. CT Scan abd/pelvis: IMPRESSION: 1. No evidence of bowel obstruction. No evidence of free air 2. Decrease in ascitic fluid. A peritoneal dialysis catheter is again visualized 3. Suspected sacroiliitis 4. Bilobed appearance of the right ovary which appears minimally enlarged 5. Minimal herniation of the right anterolateral abdominal wall, finding unchanged from the prior study. 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 Nieves, depression with anxiety, migraine , type 2 diabetes mellitus with most recent A1c 5.5 diet-controlled, chronic anemia who presented to [facility] secondary to abdominal pain. Upon further workup chest x-ray unremarkable, patient reports being anuric, and blood cultures were obtained. On exam she does not appear to have peritoneal symptoms;only mild tenderness however due to elevated WBC and abdominal pain admitting to r/o peritonitis due to peritoneal catheter -Etiology of abdominal pain: Concern for early peritonitis secondary to PD cath , vs ruptured ovarian cyst. Pain is improving, white blood cell count has returned to normal. -Peritoneal cultures and blood cultures no growth to date -Continue IV rocephin day 3, she is responding to antibiotics as WBC is now 10.32 -Stopped morphine, changed to tramadol 50 mg every 12 hours as needed (2) Leukocytosis Assessment & Plan: Plan as above (3) Hypokalemia Assessment & Plan: -Potassium is 3.5 today -Nephrology on board (4) Hypercalcemia Assessment & Plan: -Dr. Nieves following -Holding PhosLo and calcitriol (5) CKD (chronic kidney disease) stage V requiring chronic dialysis Assessment & Plan: Nephrology on board -Continue PD (6) Prolonged QT interval Assessment & Plan: -Improved to 495 today. Depression meds were stopped. -Repeat ECG in a.m. -Avoid medications that may prolong QT (7) Rash and nonspecific skin eruption Assessment & Plan: -Continue triamcinolone cream -as needed Benadryl -Derm consulted (8) Depression Assessment & Plan: -Spoke with ANGÉLICA Handy, recommendations include decreasing Lexapro to 15 mg daily, discontinue Trintellix. -She does not recommend discontinuing Lexapro altogether as it may with cause a withdrawal effect. -Repeat ECG in a.m. to follow QT -Psych on board. (9) Anemia Assessment & Plan: H&H is down to 8.6/25.7 we will repeat in a.m. Monitor, as is on heparin. (10) DM2 (diabetes mellitus, type 2) Assessment & Plan: A1c 6.2 Continue insulin sliding scale (Maida Cristina PA-C)
[2018-03-21] MEDS: TRAMADOL HCL 50 MG TAB PO PRN (16:45)
[2018-03-21] MEDS: TRIAMCINOLONE ACET 0.1% CR 15 GM TUBE EXT SCH (20:32)
[2018-03-21] MEDS: TEMAZEPAM 15 MG CAP PO SCH (20:41)
--- NOTE | 2018-03-21 21:44 | DIAGNOSTIC IMAGING REPORT ---
CHEST ONE VIEW PORTABLE CLINICAL HISTORY: Cough. Evaluate for pneumonia. COMPARISON STUDY: Chest radiograph March 19, 2018. FINDINGS: Lung volumes are at the lower limits of normal. There is no consolidation or evidence for pulmonary edema. Cardiac size is normal. Mediastinal contours are normal. Pulmonary vascularity is normal. Patient is mildly rotated. IMPRESSION: No acute cardiopulmonary findings. Electronically signed by: Sebastian Mcclain M.D. 03/21/2018 9:42 PM Dictated Date/Time: 03/21/2018 9:42 PM
[2018-03-22] VITALS (8 sets, daily range): BP systolic 103–128; BP diastolic 48–75; PULSE 83–94; TEMP 36.6–37; O2SAT 97–100
[2018-03-22] MEDS: ACETAMINOPHEN 325 MG TAB PO PRN (00:13)
[2018-03-22] MEDS: MoRPHine SULFATE 2 MG/ML CARP IV PRN ×4 (02:36→22:18)
[2018-03-22] MEDS: PROMETHAZINE HCL INJ 12.5 MG in SODIUM CHLORIDE 0.9% 50ML 50 ML IV PRN ×2 (02:36→21:22)
[2018-03-22 06:00] LABS: HEMATOCRIT 28.4 % (37-47); HEMOGLOBIN 9.5 g/dL (12.0-16.0); MEAN CELL VOLUME 103.3 fL (80-100); MEAN CORPUSCULAR HEMOGLOBIN 34.5 pg (25-34); MEAN CORPUSCULAR HGB CONC 33.5 g/dl (32-36); MEAN PLATELET VOLUME 9.3 fL (7.4-10.4); PLATELET COUNT 146 K/uL (130-400); RED CELL DISTRIBUTION WIDTH CV 14.3 % (11.5-14.5); RED CELL DISTRIBUTION WIDTH SD 52.5 fL (36.4-46.3); WHITE BLOOD COUNT 9.11 K/uL (4.8-10.8)
[2018-03-22] MEDS: HEPARIN SOD 5000 UNIT/0.5 ML CARP SQ SCH ×3 (06:00→21:24)
[2018-03-22] MEDS: TRAMADOL HCL 50 MG TAB PO PRN (06:41)
[2018-03-22 06:45] LABS: CALCIUM 9.5 mg/dl (8.5-10.1); CREATININE 15.2 mg/dl (0.60-1.20)
[2018-03-22] MEDS: INSULIN ASPART 100 UNITS/ML 3 ML PEN SC SCH ×4 (07:00→21:00)
[2018-03-22] MEDS ORDERED: POTASSIUM CHLORIDE 20 MEQ TABCR PO ONE (07:30)
[2018-03-22] MEDS: POTASSIUM CHLR 10 MEQ / WTR 100 ML IV SCH ×2 (08:41→11:32)
[2018-03-22] MEDS: GABAPENTIN 300 MG CAP PO SCH ×3 (08:42→21:23)
[2018-03-22] MEDS: FAMOTIDINE 20 MG TAB PO SCH (08:42)
[2018-03-22] MEDS: TRIAMCINOLONE ACET 0.1% CR 15 GM TUBE EXT SCH ×2 (08:43→21:22)
[2018-03-22] MEDS ORDERED: ESCITALOPRAM OXALATE 10 MG TAB PO SCH (09:00)
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
[2018-03-22] MEDS: CEFTRIAXONE SOD INJ 2,000 MG in DEXTROSE 5% 50ML 50 ML IV SCH (12:54)
--- NOTE | 2018-03-22 13:21 | GASTROINTESTINAL CONSULTATION ---
DATE OF CONSULTATION: 03/22/2018 Gastroenterology consult and cross coverage for [facility]. AGE: 32. SEX: Female. RACE: . ATTENDING PHYSICIAN: Dr. Davis. CONSULTING PHYSICIAN: Dr. Cardona. HISTORY OF PRESENT ILLNESS: Alexandra Arguello is a 32-year-old female who presented to the Department of Emergency Medicine on 03/19 with complaints of abdominal pain. She also complained of some diarrhea and was subsequently admitted. Upon arrival to the Department of Emergency Medicine, she had a white blood cell count of 19.16, hemoglobin of 11.8, hematocrit of 34.5 and MCV of 102.7 and a platelet count of 264. Liver panel was unremarkable. Sodium 133, potassium 2.9, chloride 92, bicarbonate 24, BUN 57, creatinine 16.3. She did have a CT scan of the abdomen and pelvis on 03/19, showed no evidence of bowel obstruction, moderate ascitic fluid with a peritoneal dialysis catheter in place. She was subsequently admitted. Peritoneal fluid cultures were sent as well as blood cultures. She was placed on empiric IV Rocephin therapy and did receive a dose of vancomycin. Blood cultures thus far have been negative as well as the peritoneal fluid cultures. Due to continued complaints of abdominal pain, she did undergo a repeat CT scan of her abdomen and pelvis on 03/20 with no findings that were in any way different or suggestive of the cause of her abdominal pain from the prior study one day prior. Prior to seeing the patient, I did discuss her care with nursing and they felt that the patient was exhibiting narcotic seeking behaviors. At the time when I saw the patient, she was resting comfortably in bed, playing a game on her cell phone and listening to music. She described epigastric abdominal pain, rated as a 4/10 in intensity, nonradiating without exacerbating factors, though alleviated with Dilaudid. She denied any hematemesis or melena or hematochezia, though did admit to nausea and vomiting that was unwitnessed. Of note, she did undergo an EGD by Dr. Pollard in May of 2017, which was essentially normal, although he did do biopsies of the stomach and duodenum. Duodenal biopsies were normal. Stomach biopsies did show chronic gastritis. She also underwent a colonoscopy by Dr. Capellan in September of 2017. He did remove 2 polyps in the descending colon and did do random colon biopsies. She did have some diverticulosis in the sigmoid colon and descending colon. The polyps returned showing a tubular adenoma 0.3-0.5 cm in greatest dimension and the random biopsies were unremarkable. There were no other findings of significance on either study. The patient denies any further complaints at present. PAST MEDICAL HISTORY: End-stage renal disease on peritoneal dialysis. It should be noted that she does have a significant history of medical noncompliance, history of depression, type 2 diabetes mellitus, hypertension, hypercalcemia, prolonged QT interval, history of PE. PAST SURGICAL HISTORY: , eye surgery, hernia repair, knee surgery, tubal ligation, cholecystectomy, status post kidney transplant. ALLERGIES: AMOXICILLIN, CEFACLOR, CLAVULANIC ACID. MEDICATIONS: At the present time include potassium 40 mEq p.o. t.i.d., Kenalog cream 1 application twice daily, morphine 2 mg IV q. 6 p.r.n. severe pain, Ultram 50 mg p.o. q. 12 p.r.n. pain, ceftriaxone 2 grams IV q. 24 hours, Pepcid 40 mg p.o. q.a.m., heparin 5000 units subQ 8 hours, Restoril 15 mg p.o. at bedtime, Neurontin 300 mg p.o. t.i.d. SOCIAL HISTORY: No alcohol or illicit drug use. She does smoke daily. She is unemployed. FAMILY HISTORY: Her brother does have Crohn's disease. IMPRESSION: A 32-year-old female with chronic abdominal pain and reported nausea, vomiting. PLAN: At the present time, I will add Carafate 1 gram p.o. q.i.d. a.c. and at bedtime to her medical regimen to see if this provides some relief. She has had an extensive workup in the past including EGD and colonoscopy as well as CT imaging x2 on this admission. I would recommend that she remain on a high-fiber diet. She has no signs of peritonitis at present. She will remain on IV antibiotics as per the primary team. I will follow her clinical course and make further recommendations as needed, though there is no need for any GI invasive testing at this time.
[2018-03-22] MEDS: SUCRALFATE 1 GM/10 ML UDC PO SCH ×3 (13:25→21:22)
[2018-03-22] MEDS: POTASSIUM CHLORIDE 20 MEQ TABCR PO SCH ×2 (13:26→21:23)
--- NOTE | 2018-03-22 16:55 | Psychiatric Progress Notes ---
Progress Note Date of Service Mar 22, 2018. Chief Complaint Patient seen to review alternative antidepressant treatment options with lower QTC prolongation risk Subjective Patient has been seen by cardiology. Lexapro and trintellix have both been discontinued. QTC remains prolonged above 600 as of 0600 this morning. Patient reports she has been on an antidepressant "forever" with only brief lapses secondary to noncompliance which she associates with mood decompensations in the past. Reviewed prior diagnosis of bipolar disorder. She does describe mood cycles of ups and downs. Times of elevation include symptoms of increased energy, talkativeness, increased goal-directed activity however she denies symptoms of more overt hypomania or sharron. She reports approximately two thirds of her time is spent in depression. She does feel that her mood can be abruptly labile and mood shifts can last moments, days, or weeks. She identifies interpersonal triggers, often feels that others dont care about her, and recalls h/o volatile relationships. She has never been treated with a mood stabilizer. She presently endorses a fairly euthymic mood state and denies any thoughts of harm to herself or anyone else. She would like to be restarted on antidepressant. She also states she would like to seek out a new outpatient psychiatrist (has been seeing Dr. Hammond at [facility] for about 1 year.) Review of Systems Constitutional: + fatigue Psychiatric: + problem reported (denies SI, AVH, psychosis, sharron) Mental Status Exam During interview pt is: alert and oriented, cooperative, other (obese) Appearance: disheveled Eye contact is: good Motor behavior is: no abnormal motor movements Speech: normal in rate, rhythm & volume Affect: euthymic Mood is: other (ok) Thought process: goal directed, linear, logical Thought content: reality based without delusions Suicidal thought are: denied Homicidal thoughts are: denied Hallucinations: denies auditory, denies visual Cognition: memory grossly intact, attention grossly intact, language grossly intact Intelligence estimated to be: average Insight: fair Judgement: fair Impression 32-year-old woman with end-stage renal disease, dependent on peritoneal dialysis , admitted to rule out peritonitis. We were consulted to evaluate her psychiatric medications and the possibility that are contributing to QTC prolongation. Lexapro and Trintellix have been d/c'd. QTc remains prolonged. Plan (1) QT prolongation - Discussed alternative treatment options with patient. It is generally appreciated that Zoloft, Prozac, Paxil, and Cymbalta as well as mirtazapine have little impact on QTc interval clinically. Secondary to her significant renal insufficiency and dialysis dependency, I would opt to substitute Zoloft for the Lexapro that she had been taking which is not renally dosed and again has a low risk of QTC prolongation. She had come from a 20 mg dose of Lexapro in addition to the Trintellix, she may require 100 mg or more of the Zoloft to get an adequate therapeutic effect. I would suggest starting at 50 mg when the primary team is ready to do so, checking an EKG prior to initiation and then rechecking an EKG 3-5 days following initiation to monitor for interval change. If no change, then can increase Zoloft to 100 mg daily and should recheck EKG in a similar fashion. Zoloft can be titrated thereafter by her outpatient provider as indicated and tolerated. - she denies h/o excessive activation associated w/ unopposed antidepressant tx. might benefit from gentle mood stabilization but would defer to outpatient provider at this time - I would suggest discontinuing Ultram if able secondary to risk for QTc prolongation associated with that medication which is increased secondary to delayed elimination - Based on my interview with her today, suspect personality component regarding chronic mood instability/reactivity and she was encouraged to continue in therapy. Visit Code E&M Code: 07134 Data Vital Signs Last 24 Hrs: Date Time Temp Pulse Resp B/P (MAP) Pulse Ox O2 Delivery O2 Flow Rate FiO2 03/22/18 15:35 37.0 83 16 103/48 (66) 100 Room Air 03/22/18 15:00 Room Air 03/22/18 12:00 36.7 90 20 107/73 (84) 100 Room Air 03/22/18 08:30 37.0 85 106/72 (83) 03/22/18 08:00 Room Air 03/22/18 07:44 37.0 19 106/72 (83) 98 Room Air 03/22/18 02:29 36.7 90 19 109/75 (86) 97 Room Air 03/21/18 23:23 37.3 99 16 97/62 (74) 94 Room Air 03/21/18 20:00 Room Air 03/21/18 19:52 37.0 85 107/71 (83) 03/21/18 19:16 36.6 80 18 107/71 (83) 99 Room Air Meds Administered Last 24 Hrs: Meds Administered (Past 24Hrs) Medications (Trade) Dose Ordered Sig/Sachin Route Start Time Stop Time Status Last Admin Dose Admin Potassium Chloride (Klor-Con Tab) 40 meq 2015 ONCE PO 03/20/18 20:15 03/20/18 20:16 DC 03/20/18 21:36 40 MEQ Potassium Chloride 100 ml @ 100 mls/hr Q1H IV 03/20/18 20:15 03/20/18 22:14 DC 03/20/18 23:17 100 MLS/HR Tramadol HCl (Ultram Tab) 50 mg Q12 PRN PO 03/21/18 12:00 04/20/18 11:59 03/22/18 06:41 50 MG Triamcinolone Acetonide (Kenalog 0.1% Cream) 1 appln BID EXT 03/21/18 21:00 04/20/18 20:59 03/22/18 08:43 1 APPLN Morphine Sulfate (MoRPHine SULFATE INJ) 2 mg Q6H PRN IV 03/21/18 20:00 04/04/18 19:59 03/22/18 15:04 2 MG Potassium Chloride (Klor-Con Tab) 40 meq NOW ONCE PO 03/22/18 07:30 03/22/18 07:31 DC 03/22/18 08:40 40 MEQ Potassium Chloride 100 ml @ 100 mls/hr Q1H IV 03/22/18 07:30 03/22/18 09:29 DC 03/22/18 11:32 100 MLS/HR Potassium Chloride (Klor-Con Tab) 40 meq TID PO 03/22/18 14:00 04/21/18 13:59 03/22/18 13:26 40 MEQ Sucralfate (Carafate Susp) 1 gm QID PO 03/22/18 13:00 04/01/18 12:59 03/22/18 16:37 1 GM Lab Results Last 24 Hrs: Last 24 Hours Test 03/21/18 20:34 03/22/18 05:47 03/22/18 07:36 03/22/18 11:45 Bedside Glucose 190 mg/dl 165 mg/dl 132 mg/dl White Blood Count 9.11 K/uL Red Blood Count 2.75 M/uL Hemoglobin 9.5 g/dL Hematocrit 28.4 % Mean Corpuscular Volume 103.3 fL Mean Corpuscular Hemoglobin 34.5 pg Mean Corpuscular Hemoglobin Concent 33.5 g/dl RDW Standard Deviation 52.5 fL RDW Coefficient of Variation 14.3 % Platelet Count 146 K/uL Mean Platelet Volume 9.3 fL Sodium Level 134 mmol/L Potassium Level 3.0 mmol/L Chloride Level 96 mmol/L Carbon Dioxide Level 25 mmol/L Anion Gap 13.0 mmol/L Blood Urea Nitrogen 45 mg/dl Creatinine 15.20 mg/dl Est Creatinine Clear Calc Drug Dose 5.8 ml/min Estimated GFR () 3.2 Estimated GFR (Non- 2.8 BUN/Creatinine Ratio 3.0 Random Glucose 148 mg/dl Calcium Level 9.5 mg/dl Test 03/22/18 13:49 Potassium Level 4.0 mmol/L
--- NOTE | 2018-03-22 20:20 | Progress Note ---
Medicine Progress Note Date & Time of Visit: Mar 22, 2018 at 20:13. Subjective seen resting in bed, not in distress States her abdominal pain is about the same as yesterday, the same location No nausea today Chest pain, shortness of breath, palpitations, dizziness No other symptoms Objective Last 8 Hrs Date Time Temp Pulse Resp B/P (MAP) Pulse Ox O2 Delivery O2 Flow Rate FiO2 03/22/18 19:59 97 Room Air 03/22/18 19:46 36.6 89 16 128/71 (90) 97 Room Air 03/22/18 15:35 37.0 83 16 103/48 (66) 100 Room Air 03/22/18 15:00 Room Air Physical Exam: General-oriented 3, not in distress, speaking in sentences no accessory muscle use Eyes- anicteric Neck- supple, no JVD Lungs- clear to auscultation bilaterally Heart- regular rhythm; no murmur, normal rate Abdomen- normal bowel sounds, soft, nondistended, mild to moderate tenderness around the periumbilical area upper part Resume dialysis catheter in place no signs of infection Extremities- no pretibial edema, no calf tenderness; Neuro- alert, oriented x 3; no gross focal neurologic deficits Skin- warm & dry Positive diffuse papular rash around the arm, forearms and lower legs-improving compared to yesterday Laboratory Results: Last 24 Hours Test 03/21/18 20:34 03/22/18 05:47 03/22/18 07:36 03/22/18 11:45 Bedside Glucose 190 mg/dl 165 mg/dl 132 mg/dl White Blood Count 9.11 K/uL Red Blood Count 2.75 M/uL Hemoglobin 9.5 g/dL Hematocrit 28.4 % Mean Corpuscular Volume 103.3 fL Mean Corpuscular Hemoglobin 34.5 pg Mean Corpuscular Hemoglobin Concent 33.5 g/dl RDW Standard Deviation 52.5 fL RDW Coefficient of Variation 14.3 % Platelet Count 146 K/uL Mean Platelet Volume 9.3 fL Sodium Level 134 mmol/L Potassium Level 3.0 mmol/L Chloride Level 96 mmol/L Carbon Dioxide Level 25 mmol/L Anion Gap 13.0 mmol/L Blood Urea Nitrogen 45 mg/dl Creatinine 15.20 mg/dl Est Creatinine Clear Calc Drug Dose 5.8 ml/min Estimated GFR () 3.2 Estimated GFR (Non- 2.8 BUN/Creatinine Ratio 3.0 Random Glucose 148 mg/dl Calcium Level 9.5 mg/dl Test 03/22/18 13:49 03/22/18 16:38 03/22/18 19:31 Potassium Level 4.0 mmol/L Bedside Glucose 126 mg/dl Assessment & Plan (1) Abdominal pain, unclear etiology Assessment & Plan: This is a 32-year-old white female who has a significant past medical history of 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 Nieves, depression with anxiety, migraine , type 2 diabetes mellitus with most recent A1c 5.5 diet-controlled, chronic anemia who presented to [facility] secondary to abdominal pain. Upon further workup chest x-ray unremarkable, patient reports being anuric, and blood cultures were obtained. On exam she does not appear to have peritoneal symptoms;only mild tenderness however due to elevated WBC and abdominal pain admitting to r/o peritonitis due to peritoneal catheter -Etiology of abdominal pain: Concern for early peritonitis secondary to PD cath , vs abdominal wall infection -Peritoneal cultures and blood cultures no growth to date -Continue IV rocephin day 4, she is responding to antibiotics as WBC is decreasing GI consulted for further recommendations- (2) Leukocytosis Assessment & Plan: Plan as above (3) Hypokalemia Assessment & Plan: Replace with p.o. and IV potassium -Nephrology on board (4) Hypercalcemia Assessment & Plan: -Dr. Nieves following -Holding PhosLo and calcitriol (5) CKD (chronic kidney disease) stage V requiring chronic dialysis Assessment & Plan: Nephrology on board -Continue PD (6) Prolonged QT interval Assessment & Plan: -Likely secondary to Lexapro and Trintellix -Lexapro reduced to 50 mg daily but EKG still prolonged today Lexapro discontinued Potassium supplemented -Psych reconsulted for medication recommendations -Cardiology also consulted -Repeat EKG in a.m. (7) Rash and nonspecific skin eruption Assessment & Plan: Follows with [facility] dermatology Punch biopsy showing superior to have folliculitis -Continue triamcinolone cream -as needed Benadryl Improving (8) Depression Assessment & Plan: -Psych consulted for medication management (9) Anemia Assessment & Plan: Hemoglobin stable Monitor (10) DM2 (diabetes mellitus, type 2) Assessment & Plan: A1c 6.2 Continue insulin sliding scale DVT prophylaxis heparin every 8 hours subcutaneous Disposition Anticipate discharge to home medically stable Current Inpatient Medications: Current Inpatient Medications Medications (Trade) Dose Ordered Sig/Sachin Route Start Time Stop Time Status Last Admin Dose Admin Acetaminophen (Tylenol Tab) 650 mg Q4H PRN PO 03/19/18 14:00 04/18/18 13:59 03/22/18 00:13 650 MG Heparin Sodium (Porcine) (Heparin Sq 5000 Unit/0.5ml) 5,000 unit Q8 SQ 03/19/18 22:00 04/18/18 21:59 Famotidine (Pepcid Tab) 40 mg QAM PO 03/20/18 08:00 04/19/18 08:59 03/22/18 08:42 40 MG Gabapentin (Neurontin Cap) 300 mg TID PO 03/19/18 20:00 04/18/18 20:59 03/22/18 13:25 300 MG Temazepam (Restoril Cap) 15 mg HS PO 03/19/18 21:00 04/18/18 20:59 03/21/18 20:41 15 MG Miscellaneous Information (Order Awaiting Action) 1 ea QS N/A 03/19/18 16:00 04/18/18 15:59 Diphenhydramine HCl (Benadryl Cap) 25 mg TID PRN PO 03/19/18 16:00 04/18/18 15:59 Promethazine HCl 12.5 mg/Sodium Chloride 50.5 ml @ 204 mls/hr Q6H PRN IV 03/19/18 16:30 04/18/18 16:29 03/22/18 02:36 204 MLS/HR Insulin Aspart (novoLOG ASPART) SLIDING SCALE If C... ACHS SC 03/19/18 16:30 04/18/18 16:29 03/21/18 20:41 1 UNITS Glucose (Glucose 40% Gel) 15-30 GRAMS 15 GRAMS... UD PRN PO 03/19/18 16:30 04/18/18 16:29 Glucose (Glucose Chew Tab) 4-8 Tablets 4 Tabl... UD PRN PO 03/19/18 16:30 04/18/18 16:29 Dextrose (Dextrose 50% 50ML Syringe) 25-50ML 25ML FOR ... UD PRN IV 03/19/18 16:30 04/18/18 16:29 Glucagon (Glucagon Inj) 1 mg UD PRN SQ 03/19/18 16:30 04/18/18 16:29 Carbohydrates (Carbohydrates For Hypoglycemia) 15-30 GRAMS 15 grams if BSG 54-69... UD PRN PO 03/19/18 16:30 04/18/18 16:29 Ceftriaxone Sodium 2000 mg/ Dextrose 70 ml @ 100 mls/hr Q24H IV 03/20/18 12:30 03/30/18 12:29 03/22/18 12:54 100 MLS/HR Triamcinolone Acetonide (Kenalog 0.1% Cream) 1 appln BID EXT 03/21/18 21:00 04/20/18 20:59 03/22/18 08:43 1 APPLN Morphine Sulfate (MoRPHine SULFATE INJ) 2 mg Q6H PRN IV 03/21/18 20:00 04/04/18 19:59 03/22/18 15:04 2 MG Potassium Chloride (Klor-Con Tab) 40 meq TID PO 03/22/18 14:00 04/21/18 13:59 03/22/18 13:26 40 MEQ Sucralfate (Carafate Susp) 1 gm QID PO 03/22/18 13:00 04/01/18 12:59 03/22/18 16:37 1 GM
--- NOTE | 2018-03-22 20:24 | Progress Note ---
Progress Note Date of Service Mar 22, 2018. Progress Note Attending addendum Notified by RN as patient was seen possibly ingesting hand administrative intern evaluated the patient with RN at bedside When examined patient, she is comfortable not in distress When I inquired about if she is possibly ingesting consolidative, the patient denied this and said that she just likes the smell I informed her that we are asking because we would like to be sure that she is safe and address her health problems Patient became tearful, and said that she would like to go home to make it to her son's birthday libertarian Informed patient that we need to check her blood alcohol level and she agreed I discussed the case with poison control and the recommendations to check alcohol level monitor patient, hand administrative intern ingestion is ethyl alcohol ingestion according to poison control We will continue to monitor Shilpa DA SILVA
[2018-03-22] MEDS: TEMAZEPAM 15 MG CAP PO SCH (21:22)
[2018-03-23] VITALS (10 sets, daily range): BP systolic 90–127; BP diastolic 51–87; PULSE 84–108; TEMP 36.6–37; O2SAT 93–100
[2018-03-23] MEDS: PROMETHAZINE HCL INJ 12.5 MG in SODIUM CHLORIDE 0.9% 50ML 50 ML IV PRN ×3 (04:06→22:06)
[2018-03-23] MEDS: MoRPHine SULFATE 2 MG/ML CARP IV PRN ×4 (04:06→22:04)
[2018-03-23] MEDS: HEPARIN SOD 5000 UNIT/0.5 ML CARP SQ SCH ×3 (04:41→22:00)
[2018-03-23] MEDS: SUCRALFATE 1 GM/10 ML UDC PO SCH ×4 (07:57→22:00)
[2018-03-23] MEDS: GABAPENTIN 300 MG CAP PO SCH ×3 (07:57→22:01)
[2018-03-23] MEDS: FAMOTIDINE 20 MG TAB PO SCH (07:58)
[2018-03-23] MEDS: TRIAMCINOLONE ACET 0.1% CR 15 GM TUBE EXT SCH ×2 (07:58→22:01)
[2018-03-23] MEDS: POTASSIUM CHLORIDE 20 MEQ TABCR PO SCH ×2 (07:58→13:20)
[2018-03-23] MEDS: INSULIN ASPART 100 UNITS/ML 3 ML PEN SC SCH ×4 (08:03→22:09)
[2018-03-23 08:36] LABS: CALCIUM 9.9 mg/dl (8.5-10.1); CREATININE 14.9 mg/dl (0.60-1.20)
--- NOTE | 2018-03-23 11:25 | Cardiology Progress Note ---
Cardiology Progress Note Date of Service Mar 23, 2018. Cardiology Progress Note Telemetry reviewed. Sinus rhythm and mild sinus tachycardia noted in the range of 70-110 bpm. No significant ventricular arrhythmia noted or significant ectopy. EKG performed this morning 03/23/18 8:25 AM and reviewed independently reveals normal sinus rhythm with ongoing QT prolongation, corrected QT interval was 559 ms on the present study. This is relatively unchanged compared to yesterday. Continue to monitor the patient off of QT prolonging medications. Lexapro, Trintillex, and Utram have all been placed on hold. Psychiatry input noted and appreciated. Would await normalization of the corrected QT interval, in the range of 470 ms, prior to reinitiating medications, trial of sertraline with close EKG follow-up sounds reasonable.
--- NOTE | 2018-03-23 11:55 | Progress Note ---
Medicine Progress Note Date & Time of Visit: Mar 23, 2018 at 11:36. Subjective seen resting in bed, comfortable, in good spirits comfortable states her abdominal pain is improving, also having her menstrual period- she attributes the pain to her usual menstrual cramps denies nausea no chest pain, dyspnea, palpitations, dizziness no other symptoms today Objective Last 8 Hrs Date Time Temp Pulse Resp B/P (MAP) Pulse Ox O2 Delivery O2 Flow Rate FiO2 03/23/18 09:30 36.7 108 90/60 (70) 03/23/18 09:00 36.7 108 22 90/60 (70) 97 Room Air 03/23/18 08:00 Room Air 03/23/18 04:32 36.6 97 18 121/75 (90) 100 Room Air Physical Exam: General-oriented 3, not in distress, speaking in sentences no accessory muscle use Eyes- anicteric Neck- no JVD Lungs- clear breath sounds bilaterally Heart- regular rhythm; no murmur, normal rate Abdomen- normal bowel sounds, soft, nondistended, no tenderness around the periumbilical area upper part Resume dialysis catheter in place no signs of infection Extremities- no pretibial edema, no calf tenderness; Neuro- alert, oriented x 3; no gross focal neurologic deficits Skin- warm & dry Positive diffuse papular rash around the arm, forearms and lower legs-improving compared to yesterday Laboratory Results: Last 24 Hours Test 03/22/18 11:45 03/22/18 13:49 03/22/18 16:38 03/22/18 20:22 Bedside Glucose 132 mg/dl 126 mg/dl Potassium Level 4.0 mmol/L Ethyl Alcohol mg/dL < 3.0 mg/dl Test 03/22/18 20:34 03/23/18 07:18 03/23/18 07:34 Bedside Glucose 141 mg/dl 183 mg/dl Sodium Level 135 mmol/L Potassium Level 4.0 mmol/L Chloride Level 100 mmol/L Carbon Dioxide Level 25 mmol/L Anion Gap 10.0 mmol/L Blood Urea Nitrogen 42 mg/dl Creatinine 14.90 mg/dl Est Creatinine Clear Calc Drug Dose 5.9 ml/min Estimated GFR () 3.3 Estimated GFR (Non- 2.8 BUN/Creatinine Ratio 2.8 Random Glucose 168 mg/dl Calcium Level 9.9 mg/dl Assessment & Plan Abdominal pain, unclear etiology Assessment & Plan: This is a 32-year-old white female who has a significant past medical history of 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 Nieves, depression with anxiety, migraine , type 2 diabetes mellitus with most recent A1c 5.5 diet-controlled, chronic anemia who presented to [facility] secondary to abdominal pain. Upon further workup chest x-ray unremarkable, patient reports being anuric, and blood cultures were obtained. On exam she does not appear to have peritoneal symptoms;only mild tenderness however due to elevated WBC and abdominal pain admitting to r/o peritonitis due to peritoneal catheter -Etiology of abdominal pain: Concern for early peritonitis secondary to PD cath , vs abdominal wall infection -Peritoneal cultures and blood cultures no growth to date though -Continue IV rocephin day 5, she is responding to antibiotics as WBC is decreasing GI consulted- Sucralfate added, pain improving Continue to monitor Prolonged QT interval Assessment & Plan: -Likely secondary to Lexapro and Trintellix -Lexapro reduced to 50 mg daily but EKG still prolonged today Lexapro discontinued Potassium supplemented -Psych reconsulted for medication recommendations - recommend to start Zoloft to prevent QT prolongation -Cardiology also consulted, recommendations noted Appreciate cardiology and psychiatry recommendations QT corrected today showing improvement from 600-535 Repeat EKG tomorrow If around 470, may be able to start Zoloft Hypokalemia Assessment & Plan: Replace with p.o. and IV potassium -Nephrology on board Potassium PO TID -Potassium now normal CKD (chronic kidney disease) stage V requiring chronic dialysis Assessment & Plan: Nephrology on board -Continue PD Suppurative folliculitis Assessment & Plan: Follows with [facility] dermatology Punch biopsy showing suppurative folliculitis -Continue triamcinolone cream Improving -as needed Benadryl Depression Assessment & Plan: -Psych consulted for medication management As noted above Anemia Assessment & Plan: Hemoglobin stable Monitor DM2 (diabetes mellitus, type 2) Assessment & Plan: A1c 6.2 Continue insulin sliding scale DVT prophylaxis heparin every 8 hours subcutaneous Disposition Anticipate discharge to home medically stable Current Inpatient Medications: Current Inpatient Medications Medications (Trade) Dose Ordered Sig/Sachin Route Start Time Stop Time Status Last Admin Dose Admin Acetaminophen (Tylenol Tab) 650 mg Q4H PRN PO 03/19/18 14:00 04/18/18 13:59 03/22/18 00:13 650 MG Heparin Sodium (Porcine) (Heparin Sq 5000 Unit/0.5ml) 5,000 unit Q8 SQ 03/19/18 22:00 04/18/18 21:59 Famotidine (Pepcid Tab) 40 mg QAM PO 03/20/18 08:00 04/19/18 08:59 03/23/18 07:58 40 MG Gabapentin (Neurontin Cap) 300 mg TID PO 03/19/18 20:00 04/18/18 20:59 03/23/18 07:57 300 MG Temazepam (Restoril Cap) 15 mg HS PO 03/19/18 21:00 04/18/18 20:59 03/22/18 21:22 15 MG Miscellaneous Information (Order Awaiting Action) 1 ea QS N/A 03/19/18 16:00 04/18/18 15:59 Diphenhydramine HCl (Benadryl Cap) 25 mg TID PRN PO 03/19/18 16:00 04/18/18 15:59 Promethazine HCl 12.5 mg/Sodium Chloride 50.5 ml @ 204 mls/hr Q6H PRN IV 03/19/18 16:30 04/18/18 16:29 03/23/18 04:06 204 MLS/HR Insulin Aspart (novoLOG ASPART) SLIDING SCALE If C... ACHS SC 03/19/18 16:30 04/18/18 16:29 03/23/18 08:03 1 UNITS Glucose (Glucose 40% Gel) 15-30 GRAMS 15 GRAMS... UD PRN PO 03/19/18 16:30 04/18/18 16:29 Glucose (Glucose Chew Tab) 4-8 Tablets 4 Tabl... UD PRN PO 03/19/18 16:30 04/18/18 16:29 Dextrose (Dextrose 50% 50ML Syringe) 25-50ML 25ML FOR ... UD PRN IV 03/19/18 16:30 04/18/18 16:29 Glucagon (Glucagon Inj) 1 mg UD PRN SQ 03/19/18 16:30 04/18/18 16:29 Carbohydrates (Carbohydrates For Hypoglycemia) 15-30 GRAMS 15 grams if BSG 54-69... UD PRN PO 03/19/18 16:30 04/18/18 16:29 Ceftriaxone Sodium 2000 mg/ Dextrose 70 ml @ 100 mls/hr Q24H IV 03/20/18 12:30 03/30/18 12:29 03/22/18 12:54 100 MLS/HR Triamcinolone Acetonide (Kenalog 0.1% Cream) 1 appln BID EXT 03/21/18 21:00 04/20/18 20:59 03/23/18 07:58 1 APPLN Morphine Sulfate (MoRPHine SULFATE INJ) 2 mg Q6H PRN IV 03/21/18 20:00 04/04/18 19:59 03/23/18 10:15 2 MG Potassium Chloride (Klor-Con Tab) 40 meq TID PO 03/22/18 14:00 04/21/18 13:59 03/23/18 07:58 40 MEQ Sucralfate (Carafate Susp) 1 gm QID PO 03/22/18 13:00 04/01/18 12:59 03/23/18 07:57 1 GM
[2018-03-23] MEDS: CEFTRIAXONE SOD INJ 2,000 MG in DEXTROSE 5% 50ML 50 ML IV SCH (12:30)
[2018-03-23] MEDS: TEMAZEPAM 15 MG CAP PO SCH (22:01)
[2018-03-24 03:36] VITALS: BP 97/52; PULSE 115; TEMP 37; O2SAT 98
[2018-03-24] MEDS: HEPARIN SOD 5000 UNIT/0.5 ML CARP SQ SCH ×2 (06:00→12:57)
[2018-03-24 07:44] VITALS: BP 91/65; PULSE 68; TEMP 36.7; O2SAT 94
[2018-03-24] MEDS: POTASSIUM CHLORIDE 20 MEQ TABCR PO SCH (07:49)
[2018-03-24] MEDS: PROMETHAZINE HCL INJ 12.5 MG in SODIUM CHLORIDE 0.9% 50ML 50 ML IV PRN (07:49)
[2018-03-24] MEDS: TRIAMCINOLONE ACET 0.1% CR 15 GM TUBE EXT SCH (07:50)
[2018-03-24] MEDS: SUCRALFATE 1 GM/10 ML UDC PO SCH ×2 (07:50→12:57)
[2018-03-24] MEDS: FAMOTIDINE 20 MG TAB PO SCH (07:51)
[2018-03-24] MEDS: INSULIN ASPART 100 UNITS/ML 3 ML PEN SC SCH ×2 (07:51→11:00)
[2018-03-24] MEDS: GABAPENTIN 300 MG CAP PO SCH ×2 (07:51→12:58)
[2018-03-24 08:00] VITALS: BP 91/55; PULSE 99; TEMP 36.6
[2018-03-24] MEDS: ACETAMINOPHEN 325 MG TAB PO PRN (08:21)
[2018-03-24 09:02] LABS: CALCIUM 10.3 mg/dl (8.5-10.1); CREATININE 15.1 mg/dl (0.60-1.20); POTASSIUM 4.6 mmol/L (3.5-5.1)
--- NOTE | 2018-03-24 09:43 | Gastroenterology Progress Note ---
Progress Note Date of Service: Mar 24, 2018 Subjective Pt evaluation today including: conversation w/ patient, physical exam, chart review, lab review, review of studies, review of inpatient medication list Ms. Arguello is a 32 yr old female who was admitted for abdominal pain. Pain is umbilical, sharp for a few days to a week than dull for weeks after. Sometimes the pain completely resolves. Her story is a bit inconsistent in that she doesn't recall ever having this pain prior and tells me that this pain started 3 days ago, so I'm no sure how she is able to identify a duration of a few weeks and sometimes complete relieve between the episode if she has only had this pain for 3 days and never had similar pain previously. She had a colonoscopy previously for rectal bleeding. An EGD was also done previously and the pt doesn't recall why she underwent EGD but documentation on that EGD listed "for diarrhea." The EGD was done in May 2017 and was endoscopically normal there there was increased intraepithelial lymphocytosis on duodenal path. She has chronic pain, sometimes vomiting foamy bilious liquid emesis on awakening. She does not have melena, hematochezia or hematemesis and has not had unexplained weight loss. Recent testing shows, EGD, Colonoscopy within the past year and CT during this admission w/o a cause of her pain. Labs with normal CBC, CMP including normal LFTs and lipase is normal. She is on a soft diet, not because of abd pain but she currently has dental pain. Review of Systems Constitutional: No fever Respiratory: No cough Cardiac: No chest pain Abdomen: + pain Female : No dysuria Neuro: No memory loss Psych: No depression symptoms Endo: No fatigue Skin: + rash (chronic follicular rash both arms, legs) Medications Current Inpatient Medications Medications (Trade) Dose Ordered Sig/Sachin Route Start Time Stop Time Status Last Admin Dose Admin Acetaminophen (Tylenol Tab) 650 mg Q4H PRN PO 03/19/18 14:00 04/18/18 13:59 03/24/18 08:21 650 MG Heparin Sodium (Porcine) (Heparin Sq 5000 Unit/0.5ml) 5,000 unit Q8 SQ 03/19/18 22:00 04/18/18 21:59 Famotidine (Pepcid Tab) 40 mg QAM PO 03/20/18 08:00 8/25/18 08:59 03/24/18 07:51 40 MG Gabapentin (Neurontin Cap) 300 mg TID PO 03/19/18 20:00 04/18/18 20:59 03/24/18 07:51 300 MG Temazepam (Restoril Cap) 15 mg HS PO 03/19/18 21:00 04/18/18 20:59 03/23/18 22:01 15 MG Miscellaneous Information (Order Awaiting Action) 1 ea QS N/A 03/19/18 16:00 04/18/18 15:59 Diphenhydramine HCl (Benadryl Cap) 25 mg TID PRN PO 03/19/18 16:00 04/18/18 15:59 Promethazine HCl 12.5 mg/Sodium Chloride 50.5 ml @ 204 mls/hr Q6H PRN IV 03/19/18 16:30 04/18/18 16:29 03/24/18 07:49 204 MLS/HR Insulin Aspart (novoLOG ASPART) SLIDING SCALE If C... ACHS SC 03/19/18 16:30 04/18/18 16:29 03/23/18 22:09 2 UNITS Glucose (Glucose 40% Gel) 15-30 GRAMS 15 GRAMS... UD PRN PO 03/19/18 16:30 04/18/18 16:29 Glucose (Glucose Chew Tab) 4-8 Tablets 4 Tabl... UD PRN PO 03/19/18 16:30 04/18/18 16:29 Dextrose (Dextrose 50% 50ML Syringe) 25-50ML 25ML FOR ... UD PRN IV 03/19/18 16:30 04/18/18 16:29 Glucagon (Glucagon Inj) 1 mg UD PRN SQ 03/19/18 16:30 04/18/18 16:29 Carbohydrates (Carbohydrates For Hypoglycemia) 15-30 GRAMS 15 grams if BSG 54-69... UD PRN PO 03/19/18 16:30 04/18/18 16:29 Ceftriaxone Sodium 2000 mg/ Dextrose 70 ml @ 100 mls/hr Q24H IV 03/20/18 12:30 03/30/18 12:29 03/23/18 12:30 100 MLS/HR Triamcinolone Acetonide (Kenalog 0.1% Cream) 1 appln BID EXT 03/21/18 21:00 04/20/18 20:59 03/24/18 07:50 1 APPLN Morphine Sulfate (MoRPHine SULFATE INJ) 2 mg Q6H PRN IV 03/21/18 20:00 04/04/18 19:59 03/23/18 22:04 2 MG Sucralfate (Carafate Susp) 1 gm QID PO 03/22/18 13:00 04/01/18 12:59 03/24/18 07:50 1 GM Potassium Chloride (Klor-Con Tab) 40 meq [id number] PO 03/23/18 14:00 04/22/18 13:59 03/24/18 07:49 40 MEQ Objective Vital Signs Date Time Temp Pulse Resp B/P (MAP) Pulse Ox O2 Delivery O2 Flow Rate FiO2 03/24/18 07:44 36.7 68 18 91/65 (74) 94 03/24/18 03:36 37.0 115 19 97/52 (67) 98 Room Air 03/23/18 23:07 37.0 102 16 96/51 (66) 96 Room Air 03/23/18 20:00 Room Air 03/23/18 19:41 36.7 84 18 127/87 (100) 98 Room Air 03/23/18 19:09 37.0 94 102/59 (73) 03/23/18 15:41 36.7 94 16 102/59 (73) 98 Room Air 03/23/18 14:28 36.7 91 18 111/67 (82) 100 Room Air 03/23/18 12:42 36.6 96 16 119/70 (86) 99 Room Air 03/23/18 09:30 36.7 108 90/60 (70) Physical Exam General Appearance: no apparent distress, + pertinent finding (Reading when I entered the room. Appears well. Giving me advice on how to use the soap dispenser in her room and instead of allowing me to move the sheets onher bed for exam, she very quickly lifted both legs out from under her sheets telling me that she needs to keep the sheets tucked in or she doesn't rest well. ) ENT: normal ENT inspection Neck: thyroid normal, no JVD Respiratory/Chest: lungs clear Cardiovascular: regular rate, rhythm, no JVD, no murmur Abdomen: non tender (no c/o pain on palpation), soft, + abnormal bowel sounds ( hypoactive) Extremities: normal inspection, no pedal edema, no calf tenderness Neurologic/Psych: alert, normal mood/affect, oriented x 3 Skin: normal color, no jaundice, no rash (keratosis pilaris on arms, legs) Laboratory Results Last 24 Hours Test 03/23/18 11:35 03/23/18 16:22 03/23/18 20:38 03/24/18 07:29 Bedside Glucose 102 mg/dl 109 mg/dl 220 mg/dl 139 mg/dl Test 03/24/18 08:07 03/24/18 08:23 Sodium Level 134 mmol/L Potassium Level 4.6 mmol/L Chloride Level 99 mmol/L Carbon Dioxide Level 22 mmol/L Anion Gap 12.0 mmol/L Blood Urea Nitrogen 41 mg/dl Creatinine 15.10 mg/dl Est Creatinine Clear Calc Drug Dose 5.8 ml/min Estimated GFR () 3.2 Estimated GFR (Non- 2.8 BUN/Creatinine Ratio 2.7 Random Glucose 131 mg/dl Calcium Level 10.3 mg/dl Lab Scanned Report Laboratory Report Assessment and Plan Ms. Alexandra Arguello is a 32 yr old female with LUQ abdominal pain, with normal recent EGD, Colonoscopy, CT scan and labs, most likely this represents functional pain, possibly also bile acid reflux. Plan: 1. Agree with carafate QID 2. Recommend dicyclomine 10mg QID ac/hs. pt doesn't recall taking this previously. 3. Consider NM GES - though unable to order while pt is on narcotics. No clear reason for the narcotics from a GI standpoint. GES could be done as an OP. 4. No further GI testing recommended during this admission. I have personally seen and examined the patient with ANGÉLICA Sesay. Her note reflects my exam and findings. I agree with her impression and plan. Most likely functional. Avoid narcotics if possible. Constantino Claros M.D.
[2018-03-24] MEDS ORDERED: SERTRALINE HCL 100 MG TAB PO ONE (11:38)
[2018-03-24 11:42] VITALS: BP 109/68; PULSE 119; TEMP 36.6; O2SAT 95
--- NOTE | 2018-03-24 12:21 | Cardiology Progress Note ---
Cardiology Progress Note Date of Service Mar 24, 2018. Cardiology Progress Note Telemetry reviewed, stable sinus rhythm and mild sinus tachycardia at 101 110 bpm. EKG performed today reveals sinus tachycardia at 107 bpm with normalized QT interval of 443 ms. Agree with proceeding with initiation of Zoloft. Agree with plan for reassessment on EKG after 3 days of Zoloft therapy. We will need outpatient psychiatry follow-up. EKG tracings can be performed on an outpatient basis at [facility] in the future.
--- NOTE | 2018-03-24 12:38 | Progress Note ---
Medicine Progress Note Date & Time of Visit: Mar 24, 2018 at 12:26. Subjective Seen resting in bed, comfortable, sleeping but easily awakened States she feels fine today Abdominal pain improving, no nausea Denies chest pain, shortness of breath, palpitations, dizziness Denies pruritus No other symptoms States she is ready for discharge today No other symptoms Objective Last 8 Hrs Date Time Temp Pulse Resp B/P (MAP) Pulse Ox O2 Delivery O2 Flow Rate FiO2 03/24/18 12:00 Room Air 03/24/18 11:42 36.6 119 16 109/68 (82) 95 03/24/18 08:00 36.6 99 91/55 (67) 03/24/18 08:00 Room Air 03/24/18 07:44 36.7 68 18 91/65 (74) 94 Physical Exam: General-oriented 3, not in distress, speaking in sentences no accessory muscle use Eyes- anicteric Neck- no JVD Lungs-clear BS bilaterally, no rales, no wheezing Heart- regular rhythm; no murmur, normal rate Abdomen- normal bowel sounds, soft, nondistended, no tenderness Dialysis catheter in place no signs of infection Extremities- no pretibial edema, no calf tenderness Neuro- alert, oriented x 3; no gross focal neurologic deficits Skin- warm & dry Positive diffuse papular rash around the arm, forearms and lower legs-continues to improve, less papules, no signs of infection Laboratory Results: Last 24 Hours Test 03/23/18 16:22 03/23/18 20:38 03/24/18 07:29 03/24/18 08:07 Bedside Glucose 109 mg/dl 220 mg/dl 139 mg/dl Sodium Level 134 mmol/L Potassium Level 4.6 mmol/L Chloride Level 99 mmol/L Carbon Dioxide Level 22 mmol/L Anion Gap 12.0 mmol/L Blood Urea Nitrogen 41 mg/dl Creatinine 15.10 mg/dl Est Creatinine Clear Calc Drug Dose 5.8 ml/min Estimated GFR () 3.2 Estimated GFR (Non- 2.8 BUN/Creatinine Ratio 2.7 Random Glucose 131 mg/dl Calcium Level 10.3 mg/dl Test 03/24/18 08:23 Lab Scanned Report Laboratory Report Assessment & Plan Abdominal pain, unclear etiology Assessment & Plan: This is a 32-year-old white female who has a significant past medical history of 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 Nieves, depression with anxiety, migraine , type 2 diabetes mellitus with most recent A1c 5.5 diet-controlled, chronic anemia who presented to [facility] secondary to abdominal pain. Upon further workup chest x-ray unremarkable, patient reports being anuric, and blood cultures were obtained. On exam she does not appear to have peritoneal symptoms;only mild tenderness however due to elevated WBC and abdominal pain admitting to r/o peritonitis due to peritoneal catheter -Etiology of abdominal pain: Concern for early peritonitis secondary to PD cath , vs abdominal wall infection -However, peritoneal cultures and blood cultures no growth to date -Has received 6 days of ceftriaxone IV,, leukocytosis resolved GI consulted- Sucralfate added--> discontinued, not recommended by Mold Repair Technician -Pain improved overall Monitor During admission the RNs have noticed that the patient was possibly ingesting hand assistant professor of education Inquired with patient and she has denied this Question whether this could be contributing to her symptoms She was also having her menstrual period and notes that the abdominal pain is similar to her menstrual cramps Prolonged QT interval Assessment & Plan: -Likely secondary to Lexapro and Trintellix -One-point QT interval was measured to be 616 -Lexapro reduced to 50 mg daily but EKG still prolonged Lexapro discontinued altogether Potassium supplemented this patient was also hypokalemic at 3.0 -Psych reconsulted for medication recommendations -recommend to discontinue Lexapro and Brintellix , start Zoloft as this should not increase the QT interval Psychiatry service recommending to start Zoloft at 50 mg p.o. daily to prevent QT prolongation Then repeat EKG in 3-5 days, if QT is 470 or below, patient may be increased to Zoloft 100 mg p.o. daily and repeat EKG in 3-5 days regularly -Cardiology service Dr. Vidal also consulted, agree with plan above QT corrected gradually improved from 600-440 start Zoloft 50 mg p.o. daily, repeat EKG in 3-5 days, if QT is 470 or below, patient may be increased to Zoloft 100 mg p.o. daily and repeat EKG in 3-5 days regularly Hypokalemia Assessment & Plan: Replaced with p.o. and IV potassium Possible contributing to prolonged QT -Nephrology on board Recommend to supplement potassium We will try potassium 40 mEq daily Repeat potassium on follow-up with PCP CKD (chronic kidney disease) stage V requiring chronic dialysis Assessment & Plan: Nephrology on board -Continue PD Suppurative folliculitis Assessment & Plan: Follows with [facility] dermatology Punch biopsy showing suppurative folliculitis improving since admission and starting triamcinolone cream twice daily per [facility] dermatology recommendations -Continue triamcinolone cream twice daily Continue to follow-up with [facility] forestry tree pruner Depression Assessment & Plan: -Psych consulted for medication management As noted above Anemia Assessment & Plan: Hemoglobin stable Monitor DM2 (diabetes mellitus, type 2) Assessment & Plan: A1c 6.2 Continue regimen DVT prophylaxis heparin every 8 hours subcutaneous Disposition Discharge to home Follow up with primary care physician in 3-5 days Plan of care discussed with patient at length and she is agreeable and comfortable plan of care Current Inpatient Medications: Current Inpatient Medications Medications (Trade) Dose Ordered Sig/Sachin Route Start Time Stop Time Status Last Admin Dose Admin Acetaminophen (Tylenol Tab) 650 mg Q4H PRN PO 03/19/18 14:00 04/18/18 13:59 03/24/18 08:21 650 MG Heparin Sodium (Porcine) (Heparin Sq 5000 Unit/0.5ml) 5,000 unit Q8 SQ 03/19/18 22:00 04/18/18 21:59 Famotidine (Pepcid Tab) 40 mg QAM PO 03/20/18 08:00 04/19/18 08:59 03/24/18 07:51 40 MG Gabapentin (Neurontin Cap) 300 mg TID PO 03/19/18 20:00 04/18/18 20:59 03/24/18 07:51 300 MG Temazepam (Restoril Cap) 15 mg HS PO 03/19/18 21:00 04/18/18 20:59 03/23/18 22:01 15 MG Miscellaneous Information (Order Awaiting Action) 1 ea QS N/A 03/19/18 16:00 04/18/18 15:59 Diphenhydramine HCl (Benadryl Cap) 25 mg TID PRN PO 03/19/18 16:00 04/18/18 15:59 Promethazine HCl 12.5 mg/Sodium Chloride 50.5 ml @ 204 mls/hr Q6H PRN IV 03/19/18 16:30 8/24/18 16:29 03/24/18 07:49 204 MLS/HR Insulin Aspart (novoLOG ASPART) SLIDING SCALE If C... ACHS SC 03/19/18 16:30 04/18/18 16:29 03/23/18 22:09 2 UNITS Glucose (Glucose 40% Gel) 15-30 GRAMS 15 GRAMS... UD PRN PO 03/19/18 16:30 04/18/18 16:29 Glucose (Glucose Chew Tab) 4-8 Tablets 4 Tabl... UD PRN PO 03/19/18 16:30 04/18/18 16:29 Dextrose (Dextrose 50% 50ML Syringe) 25-50ML 25ML FOR ... UD PRN IV 03/19/18 16:30 04/18/18 16:29 Glucagon (Glucagon Inj) 1 mg UD PRN SQ 03/19/18 16:30 04/18/18 16:29 Carbohydrates (Carbohydrates For Hypoglycemia) 15-30 GRAMS 15 grams if BSG 54-69... UD PRN PO 03/19/18 16:30 04/18/18 16:29 Ceftriaxone Sodium 2000 mg/ Dextrose 70 ml @ 100 mls/hr Q24H IV 03/20/18 12:30 03/30/18 12:29 03/23/18 12:30 100 MLS/HR Triamcinolone Acetonide (Kenalog 0.1% Cream) 1 appln BID EXT 03/21/18 21:00 04/20/18 20:59 03/24/18 07:50 1 APPLN Morphine Sulfate (MoRPHine SULFATE INJ) 2 mg Q6H PRN IV 03/21/18 20:00 04/04/18 19:59 03/23/18 22:04 2 MG Sucralfate (Carafate Susp) 1 gm QID PO 03/22/18 13:00 04/01/18 12:59 03/24/18 07:50 1 GM Potassium Chloride (Klor-Con Tab) 40 meq DAILY PO 03/25/18 09:00 04/22/18 13:59 Sertraline HCl (Zoloft Tab) 50 mg QAM PO 03/25/18 09:00 04/24/18 08:59 Sertraline HCl (Zoloft Tab) 50 mg 1138 ONCE PO 03/25/18 11:38 03/25/18 11:39
[2018-03-24] MEDS ORDERED: ZLF50 PO ×2 (12:55)
[2018-03-24] MEDS ORDERED: TRMO2580 TOP ×2 (12:55)
[2018-03-24] MEDS ORDERED: MCRK20 PO ×2 (12:56)
[2018-03-24] MEDS ORDERED: CRFUDL PO (12:56)
[2018-03-24] MEDS: CEFTRIAXONE SOD INJ 2,000 MG in DEXTROSE 5% 50ML 50 ML IV SCH (12:57)
--- NOTE | 2018-03-24 13:12 | Discharge Instructions ---
Discharge Instructions Date of Service Mar 24, 2018. Admission Reason for Admission: Abdominal Pain Discharge Discharge Diagnosis / Problem: Abdominal pain Discharge Goals Goal(s): Diagnostic testing, Therapeutic intervention Activity Recommendations Activity Limitations: as noted below (No heavy exertion until reevaluated by primary care physician) Lifting Limitations: until after follow-up appointment Exercise/Sports Limitations: until after follow-up appointment Driving or Machine Use: No driving . Instructions / Follow-Up Instructions / Follow-Up Please refer to your new medication list and follow instructions carefully. Did not take any new medications unless advised by your doctors. Please call your primary care physician or return to the ER immediately if with recurrence /worsening of symptoms. PLEASE FOLLOW UP WITH DR. HARPER (ASSOCIATE OF DR. LEDESMA) ON Saturday2017, AT 1:45PM. Please continue your dialysis as scheduled. Follow up with Psychiatrist. Current Hospital Diet Patient's current hospital diet: Renal Diet, Diabetes Type 2 Diet Discharge Diet Recommended Diet: Diabetes Type 2 Diet, Renal Diet Procedures Procedures Performed: CT abdomen and pelvis Pending Studies Studies pending at discharge: yes List of pending studies: Repeat EKG and blood work care of primary care physician on , March 27, 2018. Laboratory Results Hemoglobin A1c Test 03/21/18 01:57 Range/Units Estimated Average Glucose 131 mg/dl Hemoglobin A1c 6.2 H 4.5-5.6 % Medical Emergencies . Who to Call and When: Medical Emergencies: If at any time you feel your situation is an emergency, please call 911 immediately. . Non-Emergent Contact Non-Emergency issues call your: Primary Care Provider, [place] Call Non-Emergent contact if: you have a fever, your pain is not controlled, your pain is worsening, your pain is unusual for you, you have any medication questions . . "Provider Documentation" section prepared by Edmar Davis. .
--- NOTE | 2018-03-24 13:28 | Discharge Summary ---
Discharge Summary Date of Service Mar 24, 2018. Discharge Summary Admission Date: Mar 19, 2018 at 13:54 Discharge Date: Mar 24, 2018 Discharge Disposition: Home Principal Diagnosis: ABDOMINAL PAIN, UNCLEAR ETIOLOGY Secondary Diagnoses/Problems: Please refer to hospital course below. Procedures: CT SCAN OF THE ABDOMEN AND PELVIS WITHOUT CONTRAST CLINICAL HISTORY: Generalized abdominal pain COMPARISON STUDY: October 07, 2017 TECHNIQUE: CT scan of the abdomen and pelvis was performed from the lung bases to the proximal femurs. Images are reviewed in the axial, sagittal, and coronal planes. IV contrast was not administered for this examination. A dose lowering technique was utilized adhering to the principles of ALARA. CT DOSE: 1062.79 mGycm FINDINGS: Lower chest: The heart is normal in size and configuration, without pericardial effusion. The lung bases and pleural spaces are clear. Liver: The unenhanced liver is normal in size, contour, and attenuation. There is no intrahepatic biliary ductal dilatation. Gallbladder: Surgically absent Spleen: Normal in size and attenuation. Pancreas: Unremarkable. Adrenal glands: The kidneys are Kidneys: The date of kidneys are markedly atrophic. There is a calcified right lower quadrant mass, likely representing a calcified renal transplant. Bowel: There are no transition zones to indicate bowel obstruction. There are no findings to indicate acute appendicitis. Peritoneum: There is a peritoneal dialysis catheter present. There is moderate ascitic fluid present within the abdomen. Vasculature: The abdominal aorta is normal in course and caliber. Adenopathy: None. Pelvic viscera: Again evident is a suspected 29 mm right ovarian cyst/follicle. Skeletal structures: There are mild SI joint erosive changes. IMPRESSION: 1. No evidence of bowel obstruction. No evidence of free air 2. Moderate ascitic fluid similar to the preceding study. A peritoneal dialysis catheter is again visualized 3. Suspected sacroiliitis CT SCAN OF THE ABDOMEN AND PELVIS WITHOUT CONTRAST CLINICAL HISTORY: periumbilical pain COMPARISON STUDY: 03/19/2018 TECHNIQUE: CT scan of the abdomen and pelvis was performed from the lung bases to the proximal femurs. Images are reviewed in the axial, sagittal, and coronal planes. IV contrast was not administered for this examination. A dose lowering technique was utilized adhering to the principles of ALARA. CT DOSE: 970.01 mGycm FINDINGS: Lower chest: The heart is normal in size and configuration, without pericardial effusion. The lung bases and pleural spaces are clear. Liver: The unenhanced liver is normal in size, contour, and attenuation. There is no intrahepatic biliary ductal dilatation. Gallbladder: Surgically absent Spleen: Normal in size and attenuation. Pancreas: Unremarkable. Adrenal glands: Unremarkable. Kidneys: The [place] kidneys are atrophic. Bowel: There are no transition zones indicate bowel obstruction. There is no evidence of acute diverticulitis. There are no findings to indicate acute appendicitis Peritoneum: There is decreased fluid within the abdomen and pelvis. A peritoneal dialysis catheter is visualized. There is a calcified mass within the right iliac fossa, likely secondary to an old failed renal transplant. There is mild herniation of the right anterolateral abdominal wall. This remains unchanged. Vasculature: The abdominal aorta is normal in course and caliber. Adenopathy: None. Pelvic viscera: There is a bilobed appearance of the right ovary which appears mildly enlarged. Skeletal structures: No destructive osseous lesions are seen. IMPRESSION: 1. No evidence of bowel obstruction. No evidence of free air 2. Decrease in ascitic fluid. A peritoneal dialysis catheter is again visualized 3. Suspected sacroiliitis 4. Bilobed appearance of the right ovary which appears minimally enlarged 5. Minimal herniation of the right anterolateral abdominal wall, finding unchanged from the prior study. CHEST ONE VIEW PORTABLE CLINICAL HISTORY: Cough. Evaluate for pneumonia. COMPARISON STUDY: Chest radiograph March 19, 2018. FINDINGS: Lung volumes are at the lower limits of normal. There is no consolidation or evidence for pulmonary edema. Cardiac size is normal. Mediastinal contours are normal. Pulmonary vascularity is normal. Patient is mildly rotated. IMPRESSION: No acute cardiopulmonary findings. Consultations: Nephrology Steve Aldridge, GI Dr. Cardona, Cardiology Dr. Ross, Psych Dr. Palencia Pending Studies/Follow-Up: PLEASE REPEAT EKG AND POTASSIUM LEVEL ON 03/27/18 , PLEASE REFER TO HOSPITAL COURSE BELOW FOR FURTHER DETAILS. Medication Reconciliation New Medications: Potassium Chloride (Klor-Con M20) 20 Meq Tabcr 40 MEQ PO DAILY for 7 Days, #14 TAB 0 Refills Sertraline HCl (Sertraline HCl) 50 Mg Tab 50 MG PO QAM for 15 Days, #15 TAB 0 Refills Continued Medications: Albuterol Hfa (Ventolin Hfa) 200 Puffs/01309 Mcg Aers 2 PUFFS INH Q4H PRN for SOB/Wheezing, INHALER Famotidine (Pepcid) 40 Mg Tab 40 MG PO QAM, TAB Gabapentin (Neurontin) 300 Mg Cap 300 MG PO TID Sumatriptan Succinate (Sumatriptan Succinate) 50 Mg Tab 1 TAB PO UD PRN for Migraine Take 1 tab po at onset of migraine and 1 tablet after 2 hrs if continued GARNETT. No more than 2 tablets in 24 hrs Temazepam (Restoril) 15 Mg Cap 15 MG PO HS, CAP Triamcinolone Acetonide (Topic (Triamcinolone Acet 0.025%) 0.025 % Oin 1 APPLN TOP BID for 30 Days, #1 TUBE 1 Refill (This prescription has been renewed) arms and legs Discontinued Medications: Albuterol Hfa (Ventolin Hfa) 200 Puffs/31273 Mcg Aers 2-4 PUFFS INH Q6H, #1 INHALER Calcitriol (Calcitriol) 0.5 Mcg Cap 3 MG PO QAM Calcium Acetate (Phoslo 667 Mg) 667 Mg Cap 3 CAP PO WM Calcium Acetate (Phoslo 667 Mg) 667 Mg Cap 2 CAP PO WITH SNACKS, CAP TAKE 2 CAPSULES WITH SNACKS Calcium Acetate (Phoslo 667 Mg) 667 Mg Cap 1 CAP PO WITH "DARK" SODA Escitalopram Oxalate (Lexapro) 20 Mg Tab 20 MG PO HS Ondasetron Odt (Zofran Odt) 4 Mg Tab 4 MG SL Q6H for Nausea, #6 TAB Vortioxetine HBr (Trintellix) 5 Mg Tab 5 MG PO QAM Admission Information HPI (per Admitting provider): This is a 32-year-old white female who has a significant past medical history of 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 Nieves, depression with anxiety, migraine, type 2 diabetes mellitus with most recent A1c 5.5 diet-controlled, chronic anemia who presented to [facility] secondary to abdominal pain. Patient states she woke up at 2 AM was nauseated, had emesis 1, diarrhea, "I could not keep anything down." She received PD last evening from 10 PM to 8 AM. After episode of emesis and diarrhea patient developed intermittent abdominal pain. Was on peritoneal dialysis and abdominal pain became constant, stabbing, 10/10 located in the left lower quadrant radiating to the right lower quadrant, tried Zofran with no improvement, nothing made it better, made worse with movement. She states she has had similar symptoms in the past when she was diagnosed with pancreatitis. She further complains of chills, or 4-5lb weight loss in the past week, rash on her bilateral upper extremities and lower extremities that is pruritic and has been present since July. Currently she denies any pain secondary to receiving IV fentanyl, denies fever, sweats, chest pain, shortness of breath, palpitations, lightheadedness, dizziness, nausea, vomiting. Reports to being anuric. Of note patient is following with derm for rash, seen yesterday , punch biopsy done and sent, placed on triamcinolone. Also patient recently finished course of antibiotics and prednisone taper which completed about 1 week ago for acute bronchitis . Patient called her dialysis nurse due to her above complaints, was told her white blood cell count was elevated and was recommended to seek ER. In ED patient was found to have a white blood cell count of 19,000, H&H was 11.8 and 34.5 respectively, platelet count of 264, Na 133, K 2.9, BUN 57, creatinine 13 point 3, corrected calcium 11.2. Chest x-ray was unremarkable and CT scan showed ascites, possible sacroiliitis, suspected 29 mm right ovarian cyst/follicle which was present on previous exam. Physical Exam (per Admitting): General Appearance: WD/WN, no apparent distress (Sitting up in bed), + obese Head: normocephalic, atraumatic Eyes: normal inspection, PERRL, EOMI, sclerae normal ENT: + pertinent finding (Mucous membranes moist) Neck: supple, no adenopathy, no carotid bruits Respiratory/Chest: chest non-tender, lungs clear, normal breath sounds, no respiratory distress Cardiovascular: regular rate, rhythm, no edema, no gallop, no murmur Abdomen/GI: normal bowel sounds, soft, no organomegaly, + tenderness (+mild tenderness to light deep palpation lateral and medial to the PD cath site), + pertinent finding (+PD cath, dressing CDI) Back: normal inspection, no CVA tenderness, normal range of motion Extremities/Musculoskelatal: normal inspection, no calf tenderness, normal capillary refill, no pedal edema Neurologic/Psych: alert, normal mood/affect, oriented x 3 Skin: normal color, + rash (Bilateral upper and lower extremity dorsal erythematous papular rash) Lymphatic: no adenopathy Hospital Course (1) Abdominal pain (2) Leukocytosis (3) Hypokalemia (4) Hypercalcemia (5) CKD (chronic kidney disease) stage V requiring chronic dialysis (6) Prolonged QT interval (7) Rash and nonspecific skin eruption (8) Depression (9) Anemia (10) DM2 (diabetes mellitus, type 2) This is a 32-year-old white female who has a significant past medical history of 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 Nieves, depression with anxiety, migraine, type 2 diabetes mellitus with most recent A1c 5.5 diet-controlled, chronic anemia who presented to [facility] secondary to abdominal pain. Upon further workup chest x-ray unremarkable, patient reports being anuric, and blood cultures were obtained. On exam she does not appear to have peritoneal symptoms; only mild tenderness however due to elevated WBC and abdominal pain admitting to r/o peritonitis due to peritoneal catheter Abdominal pain, unclear etiology Assessment & Plan: -Etiology of abdominal pain: Concern for early peritonitis secondary to PD cath , vs abdominal wall infection -However, peritoneal cultures and blood cultures no growth to date -Has received 6 days of ceftriaxone IV, leukocytosis resolved GI consulted- Sucralfate added--> discontinued, not recommended by Business Support Professional -Pain improved overall, Monitor She was also having her menstrual period and notes that the abdominal pain is similar to her menstrual cramps CT scan of the abdomen does not suggest ruptured ovarian cyst During admission the RNs have noticed that the 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 Inquired with patient and she has denied this Question whether this could be contributing to her symptoms She was also having her menstrual period and notes that the abdominal pain is similar to her menstrual cramps Significanty Prolonged QT interval Assessment & Plan: -Likely secondary to Lexapro and Trintellix -at one point, QT interval was measured to be 616 -Lexapro reduced to 50 mg daily but EKG still prolonged Lexapro discontinued altogether Potassium supplemented,was hypokalemic at 3.0 -Psych [facility] reconsulted -recommend to discontinue Lexapro and Brintellix , start Zoloft as this should not increase the QT interval start Zoloft at 50 mg p.o. daily Then repeat EKG in 3-5 days, if QT is 470 or below, patient may be increased to Zoloft 100 mg p.o. daily and repeat EKG in 3-5 days regularly -Cardiology service Dr. Ross also consulted, agree with plan above QT corrected gradually improved from 600-440 start Zoloft 50 mg p.o. daily, repeat EKG in 3-5 days, if QT is 470 or below, patient may be increased to Zoloft 100 mg p.o. daily and repeat EKG in 3-5 days regularly Hypokalemia Assessment & Plan: Replaced with p.o. and IV potassium Possible contributing to prolonged QT -Nephrology on board Recommend to supplement potassium will try potassium 40 mEq daily Repeat potassium on follow-up with PCP CKD (chronic kidney disease) stage V requiring chronic dialysis Assessment & Plan: Nephrology on board -Continue PD Suppurative folliculitis Assessment & Plan: Follows with [facility] dermatology Punch biopsy showing suppurative folliculitis improving since admission and starting triamcinolone cream twice daily per [facility] dermatology recommendations -Continue triamcinolone cream twice daily Continue to follow-up with [facility] gastroenterology professor Depression Assessment & Plan: -Psych consulted for medication management As noted above Follow up with Psychiatry Anemia Assessment & Plan: Hemoglobin stable Monitor DM2 (diabetes mellitus, type 2) Assessment & Plan: A1c 6.2 Continue regimen Disposition Discharge to home Follow up with primary care physician in 3-5 days Plan of care discussed with patient at length and she is agreeable and comfortable plan of care Total time spent on discharge = 50 mins This includes examination of the patient, discharge planning, medication reconciliation, and communication with other providers. Discharge Instructions Discharge Instructions Date of Service Mar 24, 2018. Admission Reason for Admission: Abdominal Pain Discharge Discharge Diagnosis / Problem: Abdominal pain Discharge Goals Goal(s): Diagnostic testing, Therapeutic intervention Activity Recommendations Activity Limitations: as noted below (No heavy exertion until reevaluated by primary care physician) Lifting Limitations: until after follow-up appointment Exercise/Sports Limitations: until after follow-up appointment Driving or Machine Use: No driving . Instructions / Follow-Up Instructions / Follow-Up Please refer to your new medication list and follow instructions carefully. Did not take any new medications unless advised by your doctors. Please call your primary care physician or return to the ER immediately if with recurrence /worsening of symptoms. PLEASE FOLLOW UP WITH DR. HARPER (ASSOCIATE OF DR. LEDESMA) ON Saturday2017, AT 1:45PM. Please continue your dialysis as scheduled. Follow up with Psychiatrist. Current Hospital Diet Patient's current hospital diet: Renal Diet, Diabetes Type 2 Diet Discharge Diet Recommended Diet: Diabetes Type 2 Diet, Renal Diet Procedures Procedures Performed: CT abdomen and pelvis Pending Studies Studies pending at discharge: yes List of pending studies: Repeat EKG and blood work care of primary care physician on March. Laboratory Results Hemoglobin A1c Test 03/21/18 01:57 Range/Units Estimated Average Glucose 131 mg/dl Hemoglobin A1c 6.2 H 4.5-5.6 %
[2018-03-24 13:36] VITALS: BP 109/68; PULSE 119; TEMP 36.6; O2SAT 95
--- NOTE | 2018-03-24 14:20 | PROGRESS NOTE ---
DATE: 03/24/2018 NEPHROLOGY NOTE SUBJECTIVE: She had peritoneal dialysis overnight without any issues. Her potassium has been a challenge in the hospital and she has required quite a bit of potassium supplementation. She is supposed to be discharged pretty soon. No new issues. OBJECTIVE: VITAL SIGNS: Blood pressure 109/68, 95% on room air, pulse rate 119 per minute, temperature 36.6, respiratory rate 16. HEENT: Mucous membranes moist. NECK: Supple. No jugular venous distention. CHEST: Bilateral clear to auscultation. CARDIOVASCULAR: S1 and S2, regular. ABDOMEN: Soft, nontender. EXTREMITIES: Shows no edema. LABORATORY TESTS: From this morning shows a BUN of 41, creatinine of 15. Sodium 135, potassium 4.6, calcium 10.3. ASSESSMENT AND PLAN: A 32-year-old female with end-stage renal disease on chronic peritoneal dialysis, admitted with abdominal pain of unclear etiology. She is supposed to be discharged now. She was prescribed Carafate 4 times a day but as a dialysis patient with no urine output she cannot take this as the risk of aluminum toxicity will be very high. I did instruct her not to take it. She will continue her regular outpatient dialysis as she was doing in the past. MATTHEW
[2018-03-25] MEDS ORDERED: POTASSIUM CHLORIDE 20 MEQ TABCR PO SCH (09:00)
[2018-03-25] MEDS ORDERED: SERTRALINE HCL 50 MG TAB PO SCH (09:00)
[2018-03-25] MEDS ORDERED: SERTRALINE HCL 50 MG TAB PO ONE (11:38)
== END 2018-03-24 14:00 | disposition home or self-care (01) | DRG 391 ==
LOC: C.EDB 09:56 → EDBD 09:56 → C.4E 13:54 → ENRESERV 14:15 → C.2T 03-20 19:12 → C.2E 03-22 12:26
PROVIDERS: ADMIT Internal Medicine; ATTEND Internal Medicine
PROC: 3E1M39Z Irrigation of Peritoneal Cavity using Dialysate, Percutaneous Approach (ICD-10-PCS; principal; 2018-03-20)
DX: R10.32 Left lower quadrant pain (principal); N18.6 End stage renal disease; I50.32 Chronic diastolic (congestive) heart failure; T86.12 Kidney transplant failure; I13.2 Hypertensive heart and chronic kidney disease with heart failure and with stage 5 chronic kidney disease, or end stage renal disease; E13.21 Other specified diabetes mellitus with diabetic nephropathy; N26.9 Renal sclerosis, unspecified; E87.6 Hypokalemia; K21.9 Gastro-esophageal reflux disease without esophagitis; Y92.019 Unspecified place in single-family (private) house as the place of occurrence of the external cause; E83.52 Hypercalcemia; Z99.2 Dependence on renal dialysis; F32.9 Major depressive disorder, single episode, unspecified; Y83.0 Surgical operation with transplant of whole organ as the cause of abnormal reaction of the patient, or of later complication, without mention of misadventure at the time of the procedure

== ENCOUNTER 2018-03-26 13:41 | Emergency (ER) | payer OTHER ==
[~2018-03-26] VITALS: Ht 167.6 cm; Wt 84.1 kg
[~2018-03-26 13:41] MED LIST changes: +BENZ100C84 PO; +CRFUDL PO; +MCRK20 PO; +TRMO2580 TOP; +ZLF50 PO
[2018-03-26 13:44] VITALS: O2SAT 95
[2018-03-26 14:01] VITALS: TEMP 37; Ht 167.6 cm; Wt 84.1 kg
[2018-03-26] MEDS ORDERED: SODIUM CHLORIDE 0.9% 1000ML 1,000 ML IV STA ×2 (14:04→15:00)
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
[2018-03-26 14:13] LABS: BASO % 0.5 %; BASO ABS # 0.05 K/uL (0-0.2); EOS % 2.2 %; EOS ABS # 0.21 K/uL (0-0.5); HEMATOCRIT 33.5 % (37-47); HEMOGLOBIN 11.2 g/dL (12.0-16.0); IG# 0.05 K/uL (0.00-0.02); LYMPH % 9.7 %; LYMPH ABS # 0.93 K/uL (1.2-3.4); MEAN CELL VOLUME 104.4 fL (80-100); MEAN CORPUSCULAR HEMOGLOBIN 34.9 pg (25-34); MEAN CORPUSCULAR HGB CONC 33.4 g/dl (32-36); MEAN PLATELET VOLUME 9.8 fL (7.4-10.4); MONO % 8.8 %; MONO ABS # 0.84 K/uL (0.11-0.59); NEUT % 78.3 %; NEUT ABS # 7.52 K/uL (1.4-6.5); NUCLEATED RED BLOOD CELL ABS 0.02 K/uL (0-0); PLATELET COUNT 196 K/uL (130-400); RED CELL DISTRIBUTION WIDTH CV 15.8 % (11.5-14.5); RED CELL DISTRIBUTION WIDTH SD 57.5 fL (36.4-46.3)
[2018-03-26] MEDS ORDERED: SERT50TA PO (14:24)
[2018-03-26] MEDS ORDERED: POTA-639 PO (14:24)
--- NOTE | 2018-03-26 14:45 | DIAGNOSTIC IMAGING REPORT ---
CHEST ONE VIEW PORTABLE HISTORY: syncope COMPARISON: Chest 03/21/2018. FINDINGS: The lungs are clear. The heart is normal in size. No pleural effusions. No pneumothorax. Prior cholecystectomy. IMPRESSION: No acute process. Electronically signed by: Jose Jenkins M.D. 03/26/2018 2:44 PM Dictated Date/Time: 03/26/2018 2:26 PM
[2018-03-26 14:57] LABS: ALBUMIN 3.7 gm/dl (3.4-5.0); ALKALINE PHOSPHATASE 126 U/L (45-117); ALT/SGPT 22 U/L (12-78); AST/SGOT 11 U/L (15-37); BLOOD UREA NITROGEN 47 mg/dl (7-18); CALCIUM 9.4 mg/dl (8.5-10.1); CARBON DIOXIDE 18 mmol/L (21-32); GLUCOSE 167 mg/dl (70-99); LIPASE 298 U/L (73-393); PHOSPHORUS 5.6 mg/dl (2.5-4.9); POTASSIUM 4.1 mmol/L (3.5-5.1); SODIUM 129 mmol/L (136-145); TOTAL PROTEIN 9.2 gm/dl (6.4-8.2)
[2018-03-26 17:20] VITALS: BP 118/75; PULSE 91; O2SAT 97
== END 2018-03-26 17:28 | disposition home or self-care (01) ==
LOC: EDBD 13:41 → C.EDC 13:42
DX: R55 Syncope and collapse (principal); E86.0 Dehydration; N18.5 Chronic kidney disease, stage 5; Z99.2 Dependence on renal dialysis; F17.200 Nicotine dependence, unspecified, uncomplicated; F32.9 Major depressive disorder, single episode, unspecified; I12.0 Hypertensive chronic kidney disease with stage 5 chronic kidney disease or end stage renal disease; E11.22 Type 2 diabetes mellitus with diabetic chronic kidney disease; Z94.0 Kidney transplant status; Z83.3 Family history of diabetes mellitus; Z82.49 Family history of ischemic heart disease and other diseases of the circulatory system; Z79.899 Other long term (current) drug therapy; Z88.1 Allergy status to other antibiotic agents; Z88.8 Allergy status to other drugs, medicaments and biological substances

== ENCOUNTER 2018-03-30 17:25 | Emergency (ER) | payer OTHER ==
[~2018-03-30] VITALS: Ht 167.6 cm; Wt 86.4 kg
[~2018-03-30 17:25] MED LIST changes: -AZIT-60 PO; -BENZ100C84 PO; -CALC0.5C PO; -CALC500C3 PO; -CALC667C4 PO; -CRFUDL PO; -ESCI1TAB18 PO; -FAMO40TA6 PO; -GABA-113 PO; -IMT50 PO; -MCRK20 PO; -ONDA4TAB10 SL; +POTA-639 PO; -POTA20TA13 PO; -PRED20TA2 PO; +SERT50TA PO; -TEMA-79 PO; -VNTHFA/IN INH; -VORT1TAB PO; -ZLF50 PO
[2018-03-30 17:30] VITALS: TEMP 37.1; Ht 167.6 cm; Wt 86.4 kg
[2018-03-30] MEDS ORDERED: FLUCONAZOLE 50 MG TAB PO ONE (18:15)
[2018-03-30] MEDS ORDERED: OXYCODONE IR HOME PACK PO ONE (18:30)
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
[2018-03-30 18:51] VITALS: BP 108/71; PULSE 95; O2SAT 100
[2018-04-02] MEDS ORDERED: VNTHFA/IN INH (12:28)
[2018-04-02] MEDS ORDERED: GABA-113 PO (13:45)
[2018-04-02] MEDS ORDERED: TEMA-79 PO (13:49)
[2018-04-02] MEDS ORDERED: IMT50 PO (16:00)
== END 2018-03-30 19:17 | disposition home or self-care (01) ==
LOC: C.EDB 17:26
DX: N76.0 Acute vaginitis (principal); R55 Syncope and collapse; N18.5 Chronic kidney disease, stage 5; Z99.2 Dependence on renal dialysis; F32.9 Major depressive disorder, single episode, unspecified; I50.30 Unspecified diastolic (congestive) heart failure; E11.9 Type 2 diabetes mellitus without complications; I10 Essential (primary) hypertension; E83.52 Hypercalcemia; E87.6 Hypokalemia; F17.200 Nicotine dependence, unspecified, uncomplicated; Z88.8 Allergy status to other drugs, medicaments and biological substances; Z88.1 Allergy status to other antibiotic agents

== ENCOUNTER 2018-04-02 17:04 | Emergency (ER) | payer OTHER ==
[~2018-04-02] VITALS: Ht 167.6 cm; Wt 81.8 kg
[~2018-04-02 17:04] MED LIST changes: +GABA-113 PO; +IMT50 PO; +TEMA-79 PO; +VNTHFA/IN INH
[2018-04-02 17:08] VITALS: O2SAT 100; Ht 167.6 cm; Wt 81.8 kg
[2018-04-02] MEDS ORDERED: FLUCONAZOLE 50 MG TAB PO ONE (17:30)
[2018-04-02] MEDS ORDERED: ZLF/50 PO (17:46)
--- NOTE | 2018-04-02 18:14 | DIAGNOSTIC IMAGING REPORT ---
CHEST ONE VIEW PORTABLE CLINICAL HISTORY: cp dyspnea COMPARISON STUDY: No previous studies for comparison. FINDINGS: The bones soft tissues and hemidiaphragms are normal. The cardiomediastinal silhouette is normal. The lungs are clear. The pulmonary vasculature is normal. IMPRESSION: Negative chest. The above report was generated using voice recognition software. It may contain grammatical, syntax or spelling errors. Electronically signed by: Adolph Rizo M.D. 04/02/2018 6:13 PM Dictated Date/Time: 04/02/2018 6:13 PM
[2018-04-02] MEDS ORDERED: OXYCODONE/ACETAMINOPHEN 5-325 TAB PO STA (18:22)
[2018-04-02 18:33] VITALS: BP 115/72; PULSE 82; TEMP 36.6; O2SAT 100
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
[2018-04-02] MEDS ORDERED: FAMO40TA6 PO (23:12)
== END 2018-04-02 18:34 | disposition home or self-care (01) ==
LOC: EDBD 17:04 → C.EDB 17:05
DX: R07.89 Other chest pain (principal); N76.0 Acute vaginitis; R06.00 Dyspnea, unspecified; N18.5 Chronic kidney disease, stage 5; E11.22 Type 2 diabetes mellitus with diabetic chronic kidney disease; I13.11 Hypertensive heart and chronic kidney disease without heart failure, with stage 5 chronic kidney disease, or end stage renal disease; I50.9 Heart failure, unspecified; F32.9 Major depressive disorder, single episode, unspecified; F17.200 Nicotine dependence, unspecified, uncomplicated; Z99.2 Dependence on renal dialysis; Z79.899 Other long term (current) drug therapy; Z88.0 Allergy status to penicillin; Z88.1 Allergy status to other antibiotic agents; Z82.49 Family history of ischemic heart disease and other diseases of the circulatory system

== ENCOUNTER 2018-04-09 17:59 | Emergency (ER) | payer OTHER ==
[~2018-04-09] VITALS: Ht 167.6 cm; Wt 87.0 kg
[~2018-04-09 17:59] MED LIST changes: -GABA-113 PO; -IMT50 PO; -POTA-639 PO; -SERT50TA PO; -TEMA-79 PO; -VNTHFA/IN INH
[2018-04-09 18:06] VITALS: O2SAT 100; Ht 167.6 cm; Wt 87.0 kg
[2018-04-09] MEDS ORDERED: SODIUM CHLORIDE 0.9% 500ML 500 ML IV STA (18:46)
[2018-04-09 19:42] LABS: BASO % 0.2 %; BASO ABS # 0.02 K/uL (0-0.2); EOS % 1.1 %; HEMATOCRIT 24.5 % (37-47); HEMOGLOBIN 8.1 g/dL (12.0-16.0); IG# 0.05 K/uL (0.00-0.02); LYMPH % 10.7 %; LYMPH ABS # 0.99 K/uL (1.2-3.4); MEAN CELL VOLUME 105.2 fL (80-100); MEAN CORPUSCULAR HEMOGLOBIN 34.8 pg (25-34); MEAN CORPUSCULAR HGB CONC 33.1 g/dl (32-36); MEAN PLATELET VOLUME 8.8 fL (7.4-10.4); MONO % 4.1 %; MONO ABS # 0.38 K/uL (0.11-0.59); NEUT % 83.4 %; NEUT ABS # 7.74 K/uL (1.4-6.5); NUCLEATED RED BLOOD CELL ABS 0.02 K/uL (0-0); PLATELET COUNT 191 K/uL (130-400); RED CELL DISTRIBUTION WIDTH CV 15.4 % (11.5-14.5); RED CELL DISTRIBUTION WIDTH SD 58.2 fL (36.4-46.3); WHITE BLOOD COUNT 9.28 K/uL (4.8-10.8)
[2018-04-09 20:18] LABS: ALBUMIN 2.4 gm/dl (3.4-5.0); CALCIUM 8.8 mg/dl (8.5-10.1); CREATININE 13.9 mg/dl (0.60-1.20); TOTAL PROTEIN 7.2 gm/dl (6.4-8.2)
[2018-04-09 21:18] LABS: AST/SGOT 16 U/L (15-37); POTASSIUM 3.2 mmol/L (3.5-5.1)
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
[2018-04-09 21:46] VITALS: BP 105/53; PULSE 75; TEMP 37.3; O2SAT 100
[2018-04-10] MEDS ORDERED: VNTHFA/IN INH (12:28)
[2018-04-10] MEDS ORDERED: GABA-113 PO (13:45)
[2018-04-10] MEDS ORDERED: TEMA-79 PO (13:49)
[2018-04-10] MEDS ORDERED: IMT50 PO (16:00)
[2018-04-10] MEDS ORDERED: ZLF/50 PO (17:46)
[2018-04-10] MEDS ORDERED: DFL150 PO (22:03)
[2018-04-10] MEDS ORDERED: FAMO40TA6 PO (23:12)
== END 2018-04-09 21:51 | disposition home or self-care (01) ==
LOC: EDBD 17:59 → C.EDC 18:00
DX: D64.9 Anemia, unspecified (principal); R42 Dizziness and giddiness; Z99.2 Dependence on renal dialysis; F17.200 Nicotine dependence, unspecified, uncomplicated; F32.9 Major depressive disorder, single episode, unspecified; Z88.1 Allergy status to other antibiotic agents

== ENCOUNTER 2018-04-10 20:18 | Emergency (ER) | payer OTHER ==
[~2018-04-10] VITALS: Ht 167.6 cm; Wt 87.3 kg
[~2018-04-10 20:18] MED LIST changes: +GABA-113 PO; +IMT50 PO; +TEMA-79 PO; +VNTHFA/IN INH; +ZLF/50 PO
[2018-04-10 20:27] VITALS: TEMP 37; Ht 167.6 cm; Wt 87.3 kg
[2018-04-10] MEDS ORDERED: SODIUM CHLORIDE 0.9% 500ML 500 ML IV STA (20:59)
[2018-04-10 21:35] LABS: BASO % 0.2 %; BASO ABS # 0.02 K/uL (0-0.2); EOS % 0.9 %; EOS ABS # 0.08 K/uL (0-0.5); HEMATOCRIT 24.5 % (37-47); IG# 0.04 K/uL (0.00-0.02); LYMPH ABS # 1.01 K/uL (1.2-3.4); MEAN CELL VOLUME 106.5 fL (80-100); MEAN CORPUSCULAR HEMOGLOBIN 34.8 pg (25-34); MEAN CORPUSCULAR HGB CONC 32.7 g/dl (32-36); MEAN PLATELET VOLUME 8.5 fL (7.4-10.4); MONO % 4.4 %; NEUT % 83.1 %; NEUT ABS # 7.61 K/uL (1.4-6.5); PLATELET COUNT 161 K/uL (130-400); RED CELL DISTRIBUTION WIDTH CV 15.4 % (11.5-14.5); RED CELL DISTRIBUTION WIDTH SD 58.5 fL (36.4-46.3); WHITE BLOOD COUNT 9.16 K/uL (4.8-10.8)
[2018-04-10] MEDS ORDERED: DFL150 PO (22:03)
[2018-04-10 22:12] LABS: ALBUMIN 2.3 gm/dl (3.4-5.0); ALKALINE PHOSPHATASE 89 U/L (45-117); ALT/SGPT 20 U/L (12-78); AST/SGOT 16 U/L (15-37); BLOOD UREA NITROGEN 36 mg/dl (7-18); CARBON DIOXIDE 27 mmol/L (21-32); GLUCOSE 140 mg/dl (70-99); SODIUM 137 mmol/L (136-145); TOTAL PROTEIN 6.7 gm/dl (6.4-8.2)
[2018-04-10 22:26] VITALS: O2SAT 100
[2018-04-10] MEDS ORDERED: FAMO40TA6 PO (23:12)
[2018-04-10] MEDS ORDERED: ONDANSETRON INJ 2 MG/ML 2 ML VIAL IV STA (23:22)
[2018-04-10] MEDS ORDERED: TRAMADOL HCL 50 MG TAB PO STA (23:31)
[2018-04-10] MEDS ORDERED: ACETAMINOPHEN 325 MG TAB PO STA (23:31)
[2018-04-10 23:50] LABS: INR 0.9 (0.9-1.1); PTT PATIENT 23.5 SECONDS (21.0-31.0)
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
[2018-04-11 00:07] VITALS: BP 109/74; PULSE 86; O2SAT 94
== END 2018-04-11 00:10 | disposition home or self-care (01) ==
LOC: C.EDB 20:19 → C.EDC 04-11 00:10
DX: I95.9 Hypotension, unspecified (principal); N18.5 Chronic kidney disease, stage 5; D63.1 Anemia in chronic kidney disease; Z71.6 Tobacco abuse counseling; F32.9 Major depressive disorder, single episode, unspecified; I50.30 Unspecified diastolic (congestive) heart failure; N26.9 Renal sclerosis, unspecified; Z88.0 Allergy status to penicillin; Z88.1 Allergy status to other antibiotic agents; I13.2 Hypertensive heart and chronic kidney disease with heart failure and with stage 5 chronic kidney disease, or end stage renal disease; Z86.711 Personal history of pulmonary embolism; F17.210 Nicotine dependence, cigarettes, uncomplicated; E11.22 Type 2 diabetes mellitus with diabetic chronic kidney disease; Z98.51 Tubal ligation status; Z90.49 Acquired absence of other specified parts of digestive tract; Z94.0 Kidney transplant status; Z99.2 Dependence on renal dialysis; Z79.899 Other long term (current) drug therapy; Z82.49 Family history of ischemic heart disease and other diseases of the circulatory system; Z83.2 Family history of diseases of the blood and blood-forming organs and certain disorders involving the immune mechanism; Z83.3 Family history of diabetes mellitus; Z83.6 Family history of other diseases of the respiratory system; Z83.79 Family history of other diseases of the digestive system

== ENCOUNTER 2018-08-26 19:58 | Inpatient (IN) ==
[2018-08-26] MEDS ORDERED: ONDANSETRON INJ 2 MG/ML 2 ML VIAL IV STA (20:11)
[2018-08-26] MEDS ORDERED: VANCOMYCIN HCL IP ONE (20:30)
[2018-08-26 20:45] LABS: Appearance Urine Cloudy (Clear); Bacteria Urine Automated Negative (Negative); Bilirubin Urine Negative (Negative); Color Urine Yellow; Epithelial Cell Urine Auto >30 /lpf (0-5); Glucose Urine UA 1+ (Negative); Ketones Urine Negative (Negative); Leukocyte Esterase Urine Negative (Negative); Nitrite Urine Negative (Negative); Specific Gravity Urine 1.014 (1.000-1.030); Urobilinogen Urine Negative (Negative); WBC Urine Automated >30 /hpf (0-5)
[2018-08-26] MEDS: HYDROmorphone INJ 1 MG/ML SYRINGE IV PRN ×3 (21:06→23:41)
[2018-08-26 21:10] LABS: Basophils # (auto) 0.02 K/uL (0-0.2); Basophils % (auto) 0.3 %; Eosinophils # (auto) 0.44 K/uL (0-0.5); Eosinophils % (auto) 5.9 %; Hematocrit (blood only) 28.5 % (37-47); Hemoglobin 8.9 g/dL (12.0-16.0); Immature Granulocytes # (auto) 0.02 K/uL (0.00-0.02); Immature Granulocytes % (auto) 0.3 %; Lymphocytes # (auto) 0.93 K/uL (1.2-3.4); Lymphocytes % (auto) 12.4 %; Mean Corpuscular Hgb Conc 31.2 g/dL (32-36); Mean Corpuscular Volume 94.7 fL (80-100); Mean Platelet Volume 9.4 fL (7.4-10.4); Monocytes # (auto) 0.27 K/uL (0.11-0.59); Monocytes % (auto) 3.6 %; Neutrophils % (auto) 77.5 %; Platelet Count 123 K/uL (130-400); RDW Coefficient of Variation 16.2 % (11.5-14.5); RDW Standard Deviation 56.4 fL (36.4-46.3); Red Blood Count 3.01 M/uL (4.2-5.4); White Blood Count 7.48 K/uL (4.8-10.8)
[2018-08-26 21:25] LABS: Protein Urine 4+ (Negative)
[2018-08-26 21:36] LABS: RBC Morphology Unremarkable
[2018-08-26 21:40] LABS: Albumin Globulin Ratio 0.7 (0.9-2); Albumin Level 2.5 gm/dl (3.4-5.0); BUN Creatinine Ratio 4.7 (10-20); Bilirubin,Total 0.3 mg/dl (0.2-1); Calcium 7.7 mg/dl (8.5-10.1); Creatinine Clr Calc Pharmacy 5.3 ml/min; Est GFR (African American) 2.6; Est GFR (Non-African American) 2.3; Globulin 3.8 gm/dl (2.5-4.0); Potassium 4.3 mmol/L (3.5-5.1); Total Protein 6.3 gm/dl (6.4-8.2)
[2018-08-26] MEDS ORDERED: PIPERACILLIN/TAZOBACTAM 4.5 GM/120 ML BAG IV ONE (21:43)
[2018-08-26] MEDS ORDERED: PIPERACILL/TAZOBAC CONSULT ACTIVE PRN (21:43)
[2018-08-26] MEDS ORDERED: DAPTOmycin 225 MG in SYRINGE 0 ML IV ONE (21:43)
--- NOTE | 2018-08-26 21:52 | CT Scan Report ---
CT OF THE ABDOMEN AND PELVIS WITHOUT CONTRAST CLINICAL HISTORY: Abdominal pain. Dialysis. COMPARISON STUDY: CT of the abdomen and pelvis March 20, 2018. TECHNIQUE: Axial images of the abdomen and pelvis were obtained without IV contrast. Images were revi ewed in the axial, sagittal, and coronal planes. Automated exposure control was utilized for the darrel dy. A dose lowering technique was utilized adhering to the principles of ALARA. FINDINGS: The heart is mildly enlarged. There are small bilateral pleural effusions. Interlobular sep davie thickening represents pulmonary edema. There is mild anasarca. No pneumatosis, free air or portal venous gas is present. Peritoneal dialysis catheter is within the peritoneal cavity, located between the uterus and bladder. Of note, there is significant skin thickening and subcutaneous infiltration of the lower mid abdomen. This could reflect cellulitis. No fluid collection is identified to suggest an abscess. A small amount of fluid is noted within the umbilical hernia. A small amount of fluid wi thin the abdomen and pelvis is noted. Unenhanced images of the liver, spleen, adrenal glands and panc reas are unremarkable. Both kidneys are atrophic. A peripherally calcified right lower quadrant abnor mality likely reflects a failed allograft. No suspicious osseous lesion is noted. IMPRESSION: 1. Peritoneal dialysis catheter located coiled within the pelvis. Small amount of fluid within the ab domen and pelvis. Skin thickening and moderate subcutaneous infiltration of the anterior abdominal wa ll adjacent to a portion of the dialysis catheter which raises the possibility of cellulitis and invo lvement of the dialysis catheter/peritoneal fluid. No abscess identified. Discussed with Dr. Shaikh at time of dictation. 2. Small bilateral pleural effusions with moderate interstitial pulmonary edema. 3. No bowel obstruction. Normal appendix. Electronically signed by: Sebastian Mcclain M.D. 08/26/2018 9:49 PM
[2018-08-27] MEDS ORDERED: LORATADINE 10 MG TAB PO PRN (01:01)
[2018-08-27] MEDS ORDERED: SUMAtriptan succinate 50 MG TAB PO PRN (01:01)
[2018-08-27] MEDS ORDERED: ALBUTEROL HFA 8 GM INHALER INH PRN (01:01)
[2018-08-27] MEDS ORDERED: CALCIUM ACETATE 667 MG CAP PO PRN (01:01)
--- NOTE | 2018-08-27 01:37 | History and Physical Report ---
DATE OF ADMISSION: 08/26/2018 CHIEF COMPLAINT: Abdominal pain and possible infection from the PD catheter. HISTORY OF PRESENT ILLNESS: This is a 32-year-old female with past medical history significant for end-stage renal disease failed renal transplant, on peritoneal dialysis followed by Dr. Esteban; depression with anxiety; migraines; type 2 diabetes diet controlled; chronic anemia; tobacco abuse disorder; history of metabolic acidosis and hyperkalemia. Presents with abdominal pain. Patient says the last 2-3 days she is having abdominal pain, moderate to severe in nature associated with some nausea, no vomiting. No diarrhea or constipation. Today when , she noticed some blood and some cloudiness when she drained PD Cath and thought it could be infection and she came to the hospital. CAT scan of the abdomen and pelvis was done which showed possible cellulitis around the PD cath site and possible involvement of PD cath?peritoneal fluids. However, this patient is afebrile. No white count. Currently resting comfortably. Complains of abdominal pain, 5/10 in severity, and requests pain medications. Denies any headache. No blurred vision, no ear ache, no runny nose, no sore throat, no difficulty swallowing, no cough, no chest pain. She has some shortness of breath.Last admission HD was done to take extra fluid out. Patient has AV fistula on left Upper extremity. But patient likes to be on Peritoneal dialysis as she likes to work. 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 ALLERGIES: AUGMENTIN, CEFACLOR, CEPHALOSPORINS. PAST MEDICAL HISTORY: As mentioned above. PAST SURGICAL HISTORY: , colonoscopy, left heart catheterization, cystoscopy, EGDs, tunneled catheter insertion, CT-guided needle aspiration biopsy, knee arthroscopy, laparoscopic cholecystectomy, Lasik surgery, ligation of oviduct, removal of the tunneled catheter, renal biopsy. MEDICATIONS: The patient is on Remeron 50 mg p.o. at bedtime, amlodipine 5 mg p.o. daily, Coreg 3.125 mg p.o. b.i.d., gabapentin 300 mg in a.m. and 300 mg at noon and 600 mg at bedtime, Claritin 10 mg p.o. at bedtime p.r.n., PhosLo 667 mg 3 with meals and 2 with snacks and 1 with dark sodas, Sumatriptan 50mg prn mg p.o. daily, Pepcid 40 mg p.o. daily, sumatriptan 50 mg p.r.n. for migraines, albuterol 2 puffs every 4 hours p.r.n. FAMILY HISTORY: Significant for father had coronary disease, depression, suicide. Mother had diabetes and hyperthyroidism. Sister has hypothyroidism. SOCIAL HISTORY: , smoked one-third a pack a day for the last 11 years. No alcohol use, no drug use. REVIEW OF SYMPTOMS: As per HPI. Rest of the review of systems negative. PHYSICAL EXAMINATION: GENERAL: The patient is obese, not in acute distress. VITAL SIGNS: Temperature 36.8, pulse 92, respiratory rate 18, blood pressure 186/144, oxygen 97% room air. HEENT: No pallor, no icterus. Pupils equal, round, and reactive to light. NECK: No JVD, no neck masses, no carotid bruits. CARDIOVASCULAR: S1, S2 heard, regular rate and rhythm, no murmur, no gallop. RESPIRATORY SYSTEM: Normal AP diameter. No accessory muscle use. No wheezing, no crackles. ABDOMEN: Soft, bowel sounds present. Some diffuse tenderness. Mild guarding, no rigidity. Peritoneal cath site is clean, no drainage seen, no erythema seen. CENTRAL NERVOUS SYSTEM: Nonfocal. EXTREMITIES: No edema. LABORATORY DATA: WBC 7.4, hemoglobin 8.9, hematocrit 28.5, platelets 123. Sodium 137, potassium 4.8, chloride 103, bicarbonate 20, BUN 83, creatinine 1.17, glucose 95, calcium 7.7, total bilirubin 0.3, AST 17, ALT 26, alkaline phosphatase 86, lipase 189. Urinalysis cloudy, negative for leukocyte esterase or nitrite. IMAGING DATA: CT abdomen and pelvis shows peritoneal dialysis catheter located coiled within the pelvis, small amount of fluid within the abdomen and pelvis, skin thickening and moderate subcutaneous infiltration of the anterior abdominal wall adjacent to a portion of the dialysis catheter in which there is the possibility of cellulitis and possible involvement of dialysis catheter peritoneal fluid. No abscess identified. Moderate interstitial pulmonary edema. ASSESSMENT AND PLAN: This is a 32-year-old female presents with possible peritoneal catheterization site infection and abdominal pain. 1. Abdominal pain, possible PD catheter site infection. CAT scan is showing some cellulitis around the cath site with possible involvement of PD cath/ peritoneal fluid. There is no obvious abscess. Will empirically start on IV daptomycin and Invanz and follow the cultures. Nephrology notified. Plan for Vancomycin with dialysate . 2. End-stage renal disease, on peritoneal dialysis, nephrology notified. 3. History of depression and anxiety. On Remeron, Zoloft. 4. Hypertension. Continue Coreg and amlodipine. Monitor blood pressure.Clonidine prn 5. Gastroesophageal reflux disease, continue Pepcid. 6. Anemia of end-stage renal disease. Hemoglobin is 8.9. We will follow the labs. 7. Diabetes, not on medications due to diet control. We will follow HbA1c level in the a.m. Currently on clear liquid diet 8. The patient has AV fistula in case she needs hemodialysis. Level 1 full code. MTDD
[2018-08-27] MEDS: CARVEDILOL 3.125 MG TAB PO SCH ×3 (01:39→21:32)
[2018-08-27] MEDS: HYDROmorphone INJ 0.5 MG/0.5 ML SYR IV PRN ×6 (01:53→20:16)
[2018-08-27] MEDS ORDERED: HydrALAZINE HCL 20 MG/ML VIAL IV STA (02:18)
[2018-08-27] MEDS ORDERED: DAPTOMYCIN CONSULT ACTIVE PRN (02:39)
[2018-08-27] MEDS ORDERED: ERTAPENEM CONSULT ACTIVE PRN (02:41)
[2018-08-27] MEDS ORDERED: VANCOMYCIN HCL IP ONE ×2 (03:00→11:15)
[2018-08-27] MEDS ORDERED: PERITONEAL 2.5% IP ONE ×2 (03:00→11:15)
[2018-08-27] MEDS ORDERED: DIALYSIS IP ONE ×2 (03:00→11:15)
[2018-08-27] MEDS ORDERED: ERTAPENEM SODIUM 500 MG in SODIUM CHLORIDE 0.9% 50 ML IV SCH (06:00)
[2018-08-27 06:04] LABS: Mononuclear WBC Peritoneal 71.3 %; Polynuclear WBC Peritoneal 28.7 %; RBC Peritoneal Fluid (A) 3000 /uL; WBC Peritoneal Fluid (A) 611 /ul (0-300)
[2018-08-27 06:13] LABS: Estimated Average Glucose 108 mg/dl
[2018-08-27 06:20] LABS: Basophils # (auto) 0.02 K/uL (0-0.2); Basophils % (auto) 0.2 %; Eosinophils # (auto) 0.52 K/uL (0-0.5); Eosinophils % (auto) 6.3 %; Hematocrit (blood only) 28.4 % (37-47); Hemoglobin 8.7 g/dL (12.0-16.0); Immature Granulocytes # (auto) 0.03 K/uL (0.00-0.02); Immature Granulocytes % (auto) 0.4 %; Lymphocytes # (auto) 1.19 K/uL (1.2-3.4); Lymphocytes % (auto) 14.5 %; Mean Corpuscular Hgb Conc 30.6 g/dL (32-36); Mean Platelet Volume 9.8 fL (7.4-10.4); Monocytes # (auto) 0.37 K/uL (0.11-0.59); Monocytes % (auto) 4.5 %; Neutrophils # (auto) 6.06 K/uL (1.4-6.5); Neutrophils % (auto) 74.1 %; Platelet Count 135 K/uL (130-400); RDW Coefficient of Variation 16.4 % (11.5-14.5); RDW Standard Deviation 56.3 fL (36.4-46.3); Red Blood Count 3.02 M/uL (4.2-5.4); White Blood Count 8.19 K/uL (4.8-10.8)
[2018-08-27 06:25] LABS: Anisocytosis Present; Ovalocytes 1+
[2018-08-27 06:31] LABS: BUN Creatinine Ratio 4.8 (10-20); Calcium 7.5 mg/dl (8.5-10.1); Creatinine Clr Calc Pharmacy 5.3 ml/min; Est GFR (African American) 2.7; Est GFR (Non-African American) 2.3; Magnesium 2.1 mg/dl (1.8-2.4); Potassium 4.5 mmol/L (3.5-5.1)
--- NOTE | 2018-08-27 07:04 | Nephrology Consultation ---
Date of Consultation August 27, 2018 Assessment & Plan (1) CKD (chronic kidney disease) stage V requiring chronic dialysis: with a creatinine of 18 on presentation some skepticism that she is doing full home peritoneal dialysis treatment regimen -for hemodialysis today 4hrs, 2K bath, 3L fluid removal as tolerated -plan HD until volume status improves and PD catheter function/status clarified -will put on PD overnight w/ heparin in bags to ensure good cath flow Present on Admission?: Yes (2) Abdominal pain: primarily RLQ on my exam today. not a surgical abdomen. concern for peritonitis. the specimen she brought in unfortunately not viable after 8 hr dwell >> awaiting repeat specimen delayed d/t concern about ? cath malfunction. >defer to primary service to ensure pt w/ BM daily; avoid phos containing agents to achieve this >continue ertapenem and dapto for now per primary services; my suspicion for tunnel infection or exit site infection is low and would not continue for these indications -we will obtain an appropriate specimen for PD fluid culture this am>> that specimen (posted at 1230 today) shows elevated WBC, no elevated PMN and hemoperitoneum. -patient is anuric and has not been cath'd >> ? source of urine specimen on her ; do not treat for UTI >>I doubt this is peritonitis but given abd pain, delay in getting specimen will treat empirically for 3 days if inf dzs agrees; for just peritonitis could treat w/ aztreonam and vanco IP; and po cipro for pseudomonas coverage Present on Admission?: Yes (3) Peritoneal dialysis catheter in place: concern for PD cath malfunction/ was not draining well at home and not flushing/draining this am. cath position ok on ct scan. exit site looks pristine and no exudate or other infectious signs on exam such as erythema, induration, or tenderness isolated to tunnel tract. pt w/ hx of recurrent hemoperitoneum which may also be at play/complicate matters here, though no ed hemoperitoneum on dialysate that I saw; also w/hx of ovarian cysts >> after review of PD fluid specimen, believe this is more hemoperitoneum -nurse more experienced in PD to evaluate pt >> she drained ok after 2h dwell to collect specimen but had slow fill; fibrin strands were removed this am >> c /w hemoperitoneum -may need alteplase 1hr dwell in cath tubing if PD cath not functioning but for now heparin -500 units/L heparin w/ dialysate on PD to keep PD cath flowing starting this evening Present on Admission?: Yes (4) HTN (hypertension): uncontrolled but no sx -dialysis today HD and PD overnight -continue home amlodipine, coreg -use some higher dextrose concentrations on PD to improve fluid removal Present on Admission?: Yes (5) Anemia due to end stage renal disease: epo w/ HD today -will check iron stores in am -cbc q 48 hrs at least Present on Admission?: Yes History of Present Illness Reason for Consultation: ESRD on dialysis, abdominal pain, PD cath malfunction Requesting Physician: Dr Morgan Attending Physician: Ragini Glover DO History of Present Illness 32 y/o F w/ ESRD on PD presented to ER yesterday 2days of abdominal pain. PMH includes CAD s/p stent, HTN, GERD, migraines, failed renal transplant, chronic challenges adhering to medication/therapy regimen. She was admitted here last month w/ HTN urgency after (apparently per my clinical impression) stopping PD for a few days at least. More recnetly, she had URI sx and sore throat for past week or so but noted 2 days of increased abd girth and one day of generalized belly pain w/ cloudy herrera effluent starting yesterday. she noted that her drains were smaller volumes recently of 1.4-1.5L and that her machine has recently alarmed "low drainage" more often. states she was advised by pd nurse framing consultant to drain her abdomen and take a specimen to ER > she brought a specimen that she states had dwelt for 8 hrs which was sent for cell count ( dated today w/ no known time). CT on presentation showed moderate interstitial edema, small BL pleural effusions; thickening/irritation of subcutaneous tissues around PD catheter. Her blood pressure was 150s-180s / 80-110s. The ER started her in IV daptomycin and ertapenem; framing consultant dialysis nurse was unable to obtain specimens for reculture. Allergies Allergy/AdvReac Type Severity Reaction Status Date / Time cefaclor Allergy Intermediate Rash Verified 07/30/18 12:47 amoxicillin AdvReac Mild VOMITING Verified 07/30/18 12:47 clavulanic acid AdvReac Mild VOMITING Verified 07/30/18 12:47 Home Medications Home Medications Medication Instructions Recorded Confirmed Type albuterol sulfate [Ventolin HFA] 2 puff INHALATION QID PRN 05/30/18 08/26/18 History calcium acetate 1 - 2 tabs PO UD 05/30/18 08/26/18 History calcium acetate 4 tab PO TIDM 05/30/18 08/26/18 History gabapentin [Neurontin] 300 mg PO BID 05/30/18 08/26/18 History sertraline [Zoloft] 50 mg PO DAILY 05/30/18 08/26/18 History sumatriptan succinate [Imitrex] 50 mg PO UD PRN 05/30/18 08/26/18 History gabapentin 600 mg PO HS 07/30/18 08/26/18 History loratadine 10 mg PO HS PRN 07/30/18 08/26/18 History carvedilol 3.125 mg PO BID 30 Days #60 tab 07/31/18 08/26/18 Rx famotidine 40 mg PO QAM 30 Days #60 tab 07/31/18 08/26/18 Rx amlodipine [Norvasc] 5 mg PO DAILY 08/26/18 08/26/18 History mirtazapine [Remeron] 15 mg PO HS 08/26/18 08/26/18 History Patient History Medical History Fistula of artery (Chronic) Diastolic CHF (Chronic) "echo 04/18/17 - EF 60-65%, grade II diastolic dysfunction" FSGS (focal segmental glomerulosclerosis) (Chronic) DM2 (diabetes mellitus, type 2) (Chronic) HTN (hypertension) (Chronic) CKD (chronic kidney disease) stage V requiring chronic dialysis (Chronic) Peritoneal dialysis catheter in place (Chronic) Dependence on peritoneal dialysis (Acute) Surgical History H/O knee surgery (Resolved) H/O: (Resolved) H/O tubal ligation (Resolved) H/O eye surgery (Resolved) H/O section (Resolved) History of cholecystectomy (Resolved) H/O hernia repair (Resolved) Family History Grandmother Hx of CABG Mother Diabetes Father Crohns disease Other No pertinent family history Social History Current Living Situation: Boarding Home Current Living Situation Comment: [facility] Feels Safe at Home: Yes Safety Concerns: Feels Safe At This Time Smoking Status: Current every day smoker Tobacco Type: cigarettes Do You Dip or Chew Tobacco: No Second Hand Exposure: No Tobacco Cessation Education Requested by Patient: No Hx Alcohol Use: No Hx Substance Use: No Beliefs That Will Affect Care: None Preferred Language: Burkinan Communication Ability: Effective Engineering Secretary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 Review of Systems Constitutional: + fatigue, + weakness, + weight gain, + insomnia and + daytime sleepiness Eyes: no worsening vision Ear, Nose, Mouth, Throat: as per Subjective / HPI and + sore throat; no dry mouth Respiratory: + cough; no dyspnea, no dyspnea on exertion and no pain on inspiration Cardiovascular: no chest pain, no dyspnea on exertion, no palpitations and no edema Gastrointestinal: as per Subjective / HPI, + abdominal pain and + diarrhea/ loose stools (stable / chronic) patient is anuric and has not been cath'd as of this am Musculoskeletal: + stiffness, + myalgia and + muscle weakness; no back pain Integumentary: + sores (chronic pustules BLE) Neurologic: no localized weakness, no loss of sensation, no lack of coordination and no dizziness Psychiatric: + anxiety and + difficulty concentrating Endocrine: + fatigue; no cold intolerance and no heat intolerance Hematologic / Lymphatic: no easy bleeding Physical Exam 2 Vital Signs (Past 24 Hours): Last Vital Signs Temp 37.0 C 08/27/18 05:17 Pulse 90 08/27/18 05:00 Resp 18 08/27/18 05:00 BP 176/121 H 08/27/18 05:24 Pulse Ox 96 08/27/18 00:32 Constitutional: well developed, well nourished and + obese; no acute distress on RA and maneuvers readily for exam Eyes: EOM intact bilaterally ENMT: Ears: no external ear abnormality Nose: no external nose abnormality Mouth: + dry oral mucous membranes Neck: no nuchal rigidity Respiratory: normal respiratory effort Auscultation: lungs clear to auscultation bilaterally and + diminished lung sounds Cardiovascular: Rate/Rhythm: + tachycardic (in 90s regular) Gastrointestinal (Abdomen): Inspection/Auscultation: normal bowel sounds and + significant pannus Percussion/Palpation: + abdomen tender (diffusely but cesar RLQ) and abdomen soft; no guarding tunnel tract not tender, no exudate or redness or crust or pain at exit site Musculoskeletal: Extremities: strength 5/5 throughout Skin: normal turgor and + rash (pustules BLE shins) Neurologic: sandy, fluent speech, no tremor Psychiatric: Eye Contact: + fair eye contact Speech: normal rate/rhythm/ volume of speech Affect: + anxious affect Thought Process: + tangential thought process and + perseveration Genitourinary: no bee Results & Data Laboratory Results Abnormal lab results 08/26/18 08/26/18 08/26/18 Range/Units 20:35 20:45 20:45 RBC 3.01 L (4.2-5.4) M/uL Hgb 8.9 L (12.0-16.0) g/dL Hct 28.5 L (37-47) % MCHC 31.2 L (32-36) g/dL RDW Std Deviation 56.4 H (36.4-46.3) fL RDW Coeff of Laith 16.2 H (11.5-14.5) % Plt Count 123 L (130-400) K/uL Immature Gran # (Auto) (0.00-0.02) K/uL Lymph # (Auto) 0.93 L (1.2-3.4) K/uL Eos # (Auto) (0-0.5) K/uL Carbon Dioxide 20 L (21-32) mmol/L Anion Gap 15.0 H (3-11) BUN 83 H (7-18) mg/dl Creatinine 17.90 H* (0.6-1.2) mg/dl BUN/Creatinine Ratio 4.7 L (10-20) Glucose (70-99) mg/dl Calcium 7.7 L (8.5-10.1) mg/dl Total Protein 6.3 L (6.4-8.2) gm/dl Albumin 2.5 L (3.4-5.0) gm/dl Albumin/Globulin Ratio 0.7 L (0.9-2) Urine Appearance Cloudy H (Clear) Urine pH 8.0 H (4.5-7.5) Urine Protein 4+ H (Negative) Urine Glucose (UA) 1+ H (Negative) Urine Blood 3+ H (Negative) Urine WBC (Auto) >30 H (0-5) /hpf Urine RBC (Auto) >30 H (0-4) /hpf U Epithel Cells (Auto) >30 H (0-5) /lpf Peritoneal WBC (0-300) /ul 08/27/18 08/27/18 08/27/18 Range/Units 05:16 05:16 Unknown RBC 3.02 L (4.2-5.4) M/uL Hgb 8.7 L (12.0-16.0) g/dL Hct 28.4 L (37-47) % MCHC 30.6 L (32-36) g/dL RDW Std Deviation 56.3 H (36.4-46.3) fL RDW Coeff of Laith 16.4 H (11.5-14.5) % Plt Count (130-400) K/uL Immature Gran # (Auto) 0.03 H (0.00-0.02) K/uL Lymph # (Auto) 1.19 L (1.2-3.4) K/uL Eos # (Auto) 0.52 H (0-0.5) K/uL Carbon Dioxide 19 L (21-32) mmol/L Anion Gap 14.0 H (3-11) BUN 85 H (7-18) mg/dl Creatinine 17.70 H* (0.6-1.2) mg/dl BUN/Creatinine Ratio 4.8 L (10-20) Glucose 106 H (70-99) mg/dl Calcium 7.5 L (8.5-10.1) mg/dl Total Protein (6.4-8.2) gm/dl Albumin (3.4-5.0) gm/dl Albumin/Globulin Ratio (0.9-2) Urine Appearance (Clear) Urine pH (4.5-7.5) Urine Protein (Negative) Urine Glucose (UA) (Negative) Urine Blood (Negative) Urine WBC (Auto) (0-5) /hpf Urine RBC (Auto) (0-4) /hpf U Epithel Cells (Auto) (0-5) /lpf Peritoneal WBC 611 H (0-300) /ul Diagnostic Findings CT OF THE ABDOMEN AND PELVIS WITHOUT CONTRAST CLINICAL HISTORY: Abdominal pain. Dialysis. COMPARISON STUDY: CT of the abdomen and pelvis March 20, 2018. TECHNIQUE: Axial images of the abdomen and pelvis were obtained without IV contrast. Images were reviewed in the axial, sagittal, and coronal planes. Automated exposure control was utilized for the study. A dose lowering technique was utilized adhering to the principles of ALARA. FINDINGS: The heart is mildly enlarged. There are small bilateral pleural effusions. Interlobular septal thickening represents pulmonary edema. There is mild anasarca. No pneumatosis, free air or portal venous gas is present. Peritoneal dialysis catheter is within the peritoneal cavity, located between the uterus and bladder. Of note, there is significant skin thickening and subcutaneous infiltration of the lower mid abdomen. This could reflect cellulitis. No fluid collection is identified to suggest an abscess. A small amount of fluid is noted within the umbilical hernia. A small amount of fluid within the abdomen and pelvis is noted. Unenhanced images of the liver, spleen, adrenal glands and pancreas are unremarkable. Both kidneys are atrophic. A peripherally calcified right lower quadrant abnormality likely reflects a failed allograft. No suspicious osseous lesion is noted. IMPRESSION: 1. Peritoneal dialysis catheter located coiled within the pelvis. Small amount of fluid within the abdomen and pelvis. Skin thickening and moderate subcutaneous infiltration of the anterior abdominal wall adjacent to a portion of the dialysis catheter which raises the possibility of cellulitis and involvement of the dialysis catheter/peritoneal fluid. No abscess identified. Discussed with Dr. Shaikh at time of dictation. 2. Small bilateral pleural effusions with moderate interstitial pulmonary edema. 3. No bowel obstruction. Normal appendix. _ (1) Abdominal pain Abdominal location: right lower quadrant Qualified Code(s): R10.31 - Right lower quadrant pain (2) HTN (hypertension) Hypertension type: essential hypertension Qualified Code(s): I10 - Essential (primary) hypertension
[2018-08-27] MEDS: GABAPENTIN 300 MG CAP PO SCH ×3 (08:04→20:17)
[2018-08-27] MEDS: SERTRALINE HCL 50 MG TABLET PO SCH (08:05)
[2018-08-27] MEDS: CALCIUM ACETATE 667 MG CAP PO SCH ×3 (08:05→16:55)
[2018-08-27] MEDS: FAMOTIDINE 20 MG TAB PO SCH (08:05)
[2018-08-27] MEDS ORDERED: EPOETIN ALFA 14,000 UNITS in SYRINGE 0 ML IV SCH (08:45)
[2018-08-27] MEDS ORDERED: DAPTOmycin 500 MG VIAL IV SCH (09:00)
[2018-08-27] MEDS ORDERED: AMLODIPINE BESYLATE 5 MG TAB PO SCH (09:00)
[2018-08-27] MEDS ORDERED: HEPARIN SOD (PORCINE) 1000 UNIT/ML 10 ML VIAL IV ONE (09:39)
[2018-08-27] MEDS ORDERED: SODIUM CHLORIDE 0.9% 1000ML 1,000 ML IV PRN (09:39)
[2018-08-27] MEDS ORDERED: EPOETIN ALFA 4,000 UNIT/ML VIAL IV ONE (09:39)
--- NOTE | 2018-08-27 10:42 | Infectious Disease Consult ---
Date of Consultation August 27, 2018 Assessment & Plan (1) Cellulitis: Patient with possible abdominal wall infection related to peritoneal catheter, versus the possibility of peritonitis. Pending further peritoneal fluid cultures and blood cultures, patient to be continued on vancomycin and Zosyn. Will follow. History of Present Illness Reason for Consultation: Peritoneal cath site infection Attending Physician: Ragini Glover DO History of Present Illness 32-year-old female with diabetes mellitus with end-stage renal disease on peritoneal dialysis, who was admitted to the hospital with 2-3-day history of progressively worsening abdominal pain associated with fever and difficulty with peritoneal dialysis. Was found to have markedly elevated creatinine upon admission. Had CT scan showing possible infiltration of abdominal wall consistent with cellulitis. Peritoneal fluid showed increase in white blood cells, but specimen not considered adequate. Repeat is pending. Patient has been started empirically on IV vancomycin and Zosyn. Allergies Allergy/AdvReac Type Severity Reaction Status Date / Time cefaclor Allergy Intermediate Rash Verified 07/30/18 12:47 amoxicillin AdvReac Mild VOMITING Verified 07/30/18 12:47 clavulanic acid AdvReac Mild VOMITING Verified 07/30/18 12:47 Home Medications Home Medications Medication Instructions Recorded Confirmed Type albuterol sulfate [Ventolin HFA] 2 puff INHALATION QID PRN 05/30/18 08/26/18 History calcium acetate 1 - 2 tabs PO UD 05/30/18 08/26/18 History calcium acetate 4 tab PO TIDM 05/30/18 08/26/18 History gabapentin [Neurontin] 300 mg PO BID 05/30/18 08/26/18 History sertraline [Zoloft] 50 mg PO DAILY 05/30/18 08/26/18 History sumatriptan succinate [Imitrex] 50 mg PO UD PRN 05/30/18 08/26/18 History gabapentin 600 mg PO HS 07/30/18 08/26/18 History loratadine 10 mg PO HS PRN 07/30/18 08/26/18 History carvedilol 3.125 mg PO BID 30 Days #60 tab 07/31/18 08/26/18 Rx famotidine 40 mg PO QAM 30 Days #60 tab 07/31/18 08/26/18 Rx amlodipine [Norvasc] 5 mg PO DAILY 01/01/19 01/01/19 History mirtazapine [Remeron] 15 mg PO HS 08/26/18 08/26/18 History Patient History Medical History Fistula of artery (Chronic) Diastolic CHF (Chronic) "echo 04/18/17 - EF 60-65%, grade II diastolic dysfunction" FSGS (focal segmental glomerulosclerosis) (Chronic) DM2 (diabetes mellitus, type 2) (Chronic) HTN (hypertension) (Chronic) CKD (chronic kidney disease) stage V requiring chronic dialysis (Chronic) Peritoneal dialysis catheter in place (Chronic) Dependence on peritoneal dialysis (Acute) Surgical History H/O knee surgery (Resolved) H/O: (Resolved) H/O tubal ligation (Resolved) H/O eye surgery (Resolved) H/O section (Resolved) History of cholecystectomy (Resolved) H/O hernia repair (Resolved) Family History Grandmother Hx of CABG Mother Diabetes Father Crohns disease Other No pertinent family history Social History Current Living Situation: Boarding Home Current Living Situation Comment: [facility] Feels Safe at Home: Yes Safety Concerns: Feels Safe At This Time Smoking Status: Current every day smoker Tobacco Type: cigarettes Do You Dip or Chew Tobacco: No Second Hand Exposure: No Tobacco Cessation Education Requested by Patient: No Hx Alcohol Use: No Hx Substance Use: No Beliefs That Will Affect Care: None Preferred Language: Estonian Communication Ability: Effective Wheel Blocker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 Physical Exam 2 Vital Signs (Past 24 Hours): Last Vital Signs Temp 36.3 C L 08/27/18 07:47 Pulse 79 08/27/18 07:47 Resp 18 08/27/18 07:47 BP 168/113 H 08/27/18 07:47 Pulse Ox 97 08/27/18 07:47 Results & Data Laboratory Results Short CBC 08/26/18 08/27/18 Range/Units 20:45 05:16 WBC 7.48 8.19 (4.8-10.8) K/uL Hgb 8.9 L 8.7 L (12.0-16.0) g/dL Hct 28.5 L 28.4 L (37-47) % Plt Count 123 L 135 (130-400) K/uL BMP 08/26/18 08/27/18 20:45 05:16 Sodium 137 136 Potassium 4.3 4.5 Chloride 102 103 Carbon Dioxide 20 L 19 L BUN 83 H 85 H Creatinine 17.90 H* 17.70 H* Glucose 95 106 H Calcium 7.7 L 7.5 L Liver Function 08/26/18 Range/Units 20:45 Total Bilirubin 0.3 (0.2-1) mg/dl AST 17 (15-37) U/L ALT 26 (12-78) U/L Alkaline Phosphatase 86 (45-117) U/L Albumin 2.5 L (3.4-5.0) gm/dl Urine 08/26/18 Range/Units 20:35 Urine Color Yellow Urine Appearance Cloudy H (Clear) Urine pH 8.0 H (4.5-7.5) Ur Specific Clark 1.014 (1.000-1.030) Urine Protein 4+ H (Negative) Urine Glucose (UA) 1+ H (Negative) Diagnostic Findings Microbiology 08/26/18 21:45 Abdomen Gram Stain - Final 08/27/18 Unknown Abdomen Gram Stain - Final CT OF THE ABDOMEN AND PELVIS WITHOUT CONTRAST CLINICAL HISTORY: Abdominal pain. Dialysis. COMPARISON STUDY: CT of the abdomen and pelvis March 20, 2018. TECHNIQUE: Axial images of the abdomen and pelvis were obtained without IV contrast. Images were reviewed in the axial, sagittal, and coronal planes. Automated exposure control was utilized for the study. A dose lowering technique was utilized adhering to the principles of ALARA. FINDINGS: The heart is mildly enlarged. There are small bilateral pleural effusions. Interlobular septal thickening represents pulmonary edema. There is mild anasarca. No pneumatosis, free air or portal venous gas is present. Peritoneal dialysis catheter is within the peritoneal cavity, located between the uterus and bladder. Of note, there is significant skin thickening and subcutaneous infiltration of the lower mid abdomen. This could reflect cellulitis. No fluid collection is identified to suggest an abscess. A small amount of fluid is noted within the umbilical hernia. A small amount of fluid within the abdomen and pelvis is noted. Unenhanced images of the liver, spleen, adrenal glands and pancreas are unremarkable. Both kidneys are atrophic. A peripherally calcified right lower quadrant abnormality likely reflects a failed allograft. No suspicious osseous lesion is noted. IMPRESSION: 1. Peritoneal dialysis catheter located coiled within the pelvis. Small amount of fluid within the abdomen and pelvis. Skin thickening and moderate subcutaneous infiltration of the anterior abdominal wall adjacent to a portion of the dialysis catheter which raises the possibility of cellulitis and involvement of the dialysis catheter/peritoneal fluid. No abscess identified. Discussed with Dr. Shaikh at time of dictation. 2. Small bilateral pleural effusions with moderate interstitial pulmonary edema. 3. No bowel obstruction. Normal appendix. Electronically signed by: Sebastian Mcclain M.D. 08/26/2018 9:49 PM Dictated: [id number] Transcribed: [id number] _ (1) Cellulitis Laterality: Site of cellulitis: Site of cellulitis of extremity: Site of cellulitis of trunk:
[2018-08-27] MEDS: HEPARIN SOD (PORCINE) 1000 UNIT/ML 10 ML VIAL IV SCH ×2 (10:45→11:45)
[2018-08-27 14:26] LABS: Mononuclear WBC Peritoneal 68.3 %; Polynuclear WBC Peritoneal 31.7 %; RBC Peritoneal Fluid (A) < 3000 /uL; WBC Peritoneal Fluid (A) 46 /ul (0-300)
--- NOTE | 2018-08-27 15:05 | Hospitalist Progress Note ---
Date of Service August 27, 2018 Assessment & Plan (1) Peritonitis due to infected peritoneal dialysis catheter: ? infection. Pt reports pain, however, abdomen is not distended. there is no evidence of cellulitis superficially around the PD catheter. There was some difficulty using the catheter, and there is some question about whether she is consistently performing her dialysis and whether she is actually following the correct process. She underwent hemodialysis today and Nephrology planning to perform some PD this evening with heparin in the setting of h/o hemoperitoneum, which may be contributing to issues such as fibrin deposition peritoneal cavity. She is empirically covered with Vanc IP and Zosyn IV per ID pending culture results. She is not ill-appearing and denies any fevers or chills. She is hemodynamically stable without signs of sepsis. Cont to monitor closely pending cultures. (2) Dependence on peritoneal dialysis: s/p failed transplant in the past, Plan per Nephrology (3) Smoker: Declines nicotine patch. Encouraged to quit. (4) Anemia in CKD (chronic kidney disease): At baseline. (5) DVT prophylaxis: Heparin in setting of ESRD, poss infection and h/o PE in the past. Full Code Dispo-likely will return home once medically stable. Ragini Glover DO [facility] Hospitalist Subjective 32 yo ESRD patient on PD presents with abdominal pain and strange appearing peritoneal fluid during flush at home. Sent to ER per PD triage nurses. Denies any fevers or chills. She has a low appetite with some nausea. She reports a recent sudden development of swelling in her abdomen over the last few days. ROS is otherwise unremarkable. She underwent HD today. Physical Exam 2 Vital Signs (Past 24 Hours): Last Vital Signs Temp 37 C 08/27/18 14:42 Pulse 83 08/27/18 14:42 Resp 18 08/27/18 07:47 BP 146/78 H 08/27/18 14:42 Pulse Ox 97 08/27/18 07:47 CONSTITUTIONAL: WNWD, vitals as above, generally well-appearing EYES: normal conjuctivae, no scleral icterus ENT: MMM RESPIRATORY: clear to auscultation bilaterally, no crackles, rales or wheezes, normal respiratory effort CARDIOVASCULAR: regular rate and rhythm, S1 and 2 heard without murmurs, gallops or rubs, no JVD, no peripheral edema GASTROINTESTINAL: +PD catheter with no surrounding cellulitis or obvious drainage onto dressing. Normal bowel sounds, soft, TTP diffusely, nondistended MUSCULOSKELETAL: strength 5/5 throughout, head is normocephalic and atraumatic SKIN: warm and dry NEUROLOGIC: CN 2-12 grossly intact, no gross focal deficits. PSYCHIATRIC: alert cooperative and oriented to person, place and time. Euthymic mood Results & Data Laboratory Results Short CBC 08/27/18 Range/Units 05:16 WBC 8.19 (4.8-10.8) K/uL Hgb 8.7 L (12.0-16.0) g/dL Hct 28.4 L (37-47) % Plt Count 135 (130-400) K/uL BMP 08/27/18 05:16 Sodium 136 Potassium 4.5 Chloride 103 Carbon Dioxide 19 L BUN 85 H Creatinine 17.70 H* Glucose 106 H Calcium 7.5 L Medications Administered Current Inpatient Medications Albuterol (Ventolin Hfa) 2 puffs INH QID PRN PRN Reason: Shortness Of Breath Or Wheezin Stop: 09/26/18 01:00 Amlodipine Besylate (Norvasc) 5 mg PO DAILY NIKKI Stop: 09/26/18 23:14 Last Admin: 08/28/18 00:09 Dose: 5 mg Calcium Acetate (Phoslo) 2,668 mg PO TIDM NIKKI Stop: 09/26/18 07:59 Last Admin: 08/27/18 16:55 Dose: 2,668 mg Calcium Acetate (Phoslo) 1,334 mg PO UD PRN PRN Reason: WITH SNACKS Stop: 09/26/18 01:00 Carvedilol (Coreg) 3.125 mg PO BID NIKKI Stop: 09/26/18 01:00 Last Admin: 08/27/18 21:32 Dose: 3.125 mg Clonidine HCl (Catapres) 0.1 mg PO Q4H PRN PRN Reason: Hypertension Stop: 09/26/18 03:25 Famotidine (Pepcid) 40 mg PO QAM NIKKI Stop: 09/26/18 08:59 Last Admin: 08/27/18 08:05 Dose: 40 mg Gabapentin (Neurontin) 600 mg PO HS NIKKI Stop: 09/26/18 20:59 Last Admin: 08/27/18 20:17 Dose: 600 mg Gabapentin (Neurontin) 300 mg PO BID@0900,1400 [facility] Stop: 09/26/18 08:59 Last Admin: 08/27/18 14:30 Dose: Not Given Heparin Sodium (Porcine) (Heparin Sodium (Porcine)) 5,000 units SQ Q8 [facility] Stop: 09/27/18 05:59 Hydromorphone HCl (Dilaudid) 0.5 mg IV Q3H PRN PRN Reason: Pain Stop: 09/10/18 01:00 Last Admin: 08/28/18 01:40 Dose: 0.5 mg Piperacillin Sod/Tazobactam (Sod 3.375 gm/ Dextrose) 115 mls @ 28.75 mls/hr IV Q12H [facility]; Protocol Stop: 09/06/18 15:59 Last Admin: 08/28/18 03:59 Dose: 28.8 mls/hr Loratadine (Claritin) 10 mg PO HS PRN PRN Reason: ALLERGIES Stop: 09/26/18 01:00 Mirtazapine (Remeron) 15 mg PO HS [facility] Stop: 09/26/18 20:59 Last Admin: 08/27/18 21:32 Dose: 15 mg Miscellaneous Information (Pharmacy Consult) 1 ea N/A UD PRN PRN Reason: Consult Stop: 09/26/18 15:34 Oxycodone/Acetaminophen (Percocet 5mg/325mg) 1 tab PO Q4H PRN PRN Reason: Pain Stop: 09/10/18 04:57 Promethazine HCl (Phenergan) 25 mg PO Q6H PRN PRN Reason: Nausea And Vomiting Stop: 09/26/18 15:29 Last Admin: 08/27/18 17:18 Dose: 25 mg Sertraline HCl (Zoloft) 50 mg PO DAILY [facility] Stop: 09/26/18 08:59 Last Admin: 08/27/18 08:05 Dose: 50 mg Sumatriptan Succinate (Imitrex) 50 mg PO UD PRN PRN Reason: Migraine Headache Stop: 09/26/18 01:00
[2018-08-27] MEDS ORDERED: CONSULT PHARMACY PRN (15:35)
[2018-08-27] MEDS: PIPERACILLIN/TAZOBACTAM 3.375 GM in DEXTROSE 5% 100 ML IV SCH (16:54)
[2018-08-27] MEDS: PROMETHAZINE HCL 25 MG TAB PO PRN (17:18)
--- NOTE | 2018-08-27 20:03 | Dialysis Progress Note ---
Date of Service August 27, 2018 Assessment & Plan (1) CKD (chronic kidney disease) stage V requiring chronic dialysis: HD today to optimize bp, voluem status Present on Admission?: Yes (2) Peritoneal dialysis catheter in place: suspect more hemoperitoneum than peritonitis. on large spectrum antibiotics; see consult from me, inf tiffani for details -will cycle on pd this evening with heparin in bags Present on Admission?: Yes (3) Abdominal pain: chronic; ensure daily bm Present on Admission?: Yes (4) HTN (hypertension): higher bp> HD, and home bp meds Present on Admission?: Yes Subjective seen on HD at 1025 approx. tolerating tx well>no sob, no cramps, no n/v; PD fluid dwell underweay Physical Exam 2 Vital Signs (Past 24 Hours): Last Vital Signs Temp 36.8 C 08/27/18 15:22 Pulse 76 08/27/18 15:22 Resp 18 08/27/18 15:22 BP 168/104 H 08/27/18 15:22 Pulse Ox 94 08/27/18 15:22 Constitutional: well developed and well nourished on RA resting quietly Eyes: EOM intact bilaterally ENMT: Ears: no external ear abnormality Nose: no external nose abnormality Mouth: + dry oral mucous membranes Neck: no nuchal rigidity Respiratory: normal respiratory effort Auscultation: + diminished lung sounds Cardiovascular: RRR, no murmur, no edema Gastrointestinal (Abdomen): Inspection/Auscultation: normal bowel sounds Percussion/Palpation: + abdomen tender and abdomen soft pd cath in place Musculoskeletal: Extremities: strength 5/5 throughout Skin: no rashes, warm and dry Neurologic: sandy, fluent speech, no tremor Psychiatric: Orientation: alert, oriented x 3 and cooperative Affect: + anxious affect Genitourinary: no bee Results & Data Laboratory Results reviewed _ (1) Abdominal pain Abdominal location: right lower quadrant Qualified Code(s): R10.31 - Right lower quadrant pain (2) HTN (hypertension) Hypertension type: essential hypertension Qualified Code(s): I10 - Essential (primary) hypertension
[2018-08-27] MEDS: MIRTAZAPINE TAB 15 MG TAB PO SCH (21:32)
[2018-08-28] MEDS: AMLODIPINE BESYLATE 5 MG TAB PO SCH (00:09)
[2018-08-28] MEDS: HYDROmorphone INJ 0.5 MG/0.5 ML SYR IV PRN ×4 (01:40→19:56)
[2018-08-28] MEDS: PIPERACILLIN/TAZOBACTAM 3.375 GM in DEXTROSE 5% 100 ML IV SCH ×2 (03:59→16:33)
--- NOTE | 2018-08-28 07:57 | Nephrology Progress Note ---
Date of Service August 28, 2018 Assessment & Plan (1) CKD (chronic kidney disease) stage V requiring chronic dialysis: with a creatinine of 18 on presentation some skepticism that she is doing full home peritoneal dialysis treatment regimen > improved to 8 today after essentially 2 dialysis txs She had HD 1/2 for 4 hrs to improve bp/vol status -favor now doing consistent PD regimen while in house - for PD tonight same rx (2) Peritoneal dialysis catheter in place: suspect more hemoperitoneum than peritonitis. -will do MDE w/ 2 gm aztreonam in long dwell (and 1 gm vanco if < 15 level random) and continue pd this evening with heparin in bags >on admission concern for PD cath malfunction/ was not draining well at home and draining slowly here >> resolved by adding heparin to bags -cath position ok on ct scan. exit site looks pristine and no exudate or other infectious signs on exam such as erythema, induration, or tenderness isolated to tunnel tract. pt w/ hx of recurrent hemoperitoneum and fluid studies support that process here though no ed hemoperitoneum on dialysate that I saw ; also w/hx of ovarian cysts may need alteplase 1hr dwell in cath tubing if PD cath not functioning but for now heparin --500 units/L heparin w/ dialysate on PD to keep PD cath flowing (3) Abdominal pain: chronic; ensure daily bm -we are treating empirically for peritonitis though my index of suspicion is low ; fluid studies once properly obtained, do not support peritonitis -- the specimen timed "unknown" from 08/27/18 is not correctly obtained; the one from 1230 same date is. the specimen she brought in (time = unknown) unfortunately not viable after 8 hr dwell >> awaiting repeat specimen delayed d/t concern about ? cath malfunction. >defer to primary service to ensure pt w/ BM daily; avoid phos containing agents to achieve this >stop systemic abtx and do IP ones s above -PD cell count/diff do not support peritonitis; cx todate negative -will repeat fluid studies on 08/30 -patient is anuric and has not been cath'd >> ? source of urine specimen on her ; do not treat for UTI >>I doubt this is peritonitis but given abd pain, delay in getting specimen will treat empirically for 3 days if inf dzs agrees; for just peritonitis could treat w/ aztreonam and vanco IP; and po cipro for pseudomonas coverage (4) HTN (hypertension): bp improved though still labile w/ systolic ranging from 109-171 past 24 hrs; recheck status through day -continue home CCB and BB and do consistent dialysis (5) Anemia due to end stage renal disease: -stable/satisfactory -f/u pending Fe stores -had epo w/ HD --ck cbc q 48 hrs Present on Admission?: Yes Subjective 2.5 L UF last evening; seen on rounds this am; PD went smoothly overnight no issues w/ exchanges and drains. abd pain still present at times but better. no sob, no edema or chest pain. anuric. no joint pain. did not discuss bm. eating well and no f/c. denies missing pd txs at home Physical Exam 2 Vital Signs (Past 24 Hours): Last Vital Signs Temp 36.9 C 08/28/18 07:13 Pulse 79 08/28/18 07:13 Resp 18 08/28/18 07:13 BP 147/94 H 08/28/18 07:13 Pulse Ox 96 08/28/18 07:13 Constitutional: well developed, well nourished and + obese; no acute distress on ra and maneuvers readily for exam Eyes: EOM intact bilaterally ENMT: Ears: no external ear abnormality Nose: no external nose abnormality Mouth: + dry oral mucous membranes Neck: no nuchal rigidity Respiratory: normal respiratory effort Auscultation: lungs clear to auscultation bilaterally and + diminished lung sounds Cardiovascular: RRR, no murmur, no edema Gastrointestinal (Abdomen): Inspection/Auscultation: normal bowel sounds and + significant pannus Percussion/Palpation: + abdomen tender and abdomen soft ; no guarding ? some fluid distension/retained fluid? Musculoskeletal: Extremities: strength 5/5 throughout Skin: no rashes, warm and dry normal turgor and + rash (pustules BLE shins ) Psychiatric: Orientation: alert, oriented x 3 and cooperative Eye Contact: + fair eye contact Speech: normal rate/rhythm/volume of speech Affect: + anxious affect Thought Process: + tangential thought process and + perseveration Results & Data Laboratory Results reviewed _ (1) Abdominal pain Abdominal location: right lower quadrant Qualified Code(s): R10.31 - Right lower quadrant pain (2) HTN (hypertension) Hypertension type: essential hypertension Qualified Code(s): I10 - Essential (primary) hypertension
[2018-08-28] MEDS: GABAPENTIN 300 MG CAP PO SCH ×3 (08:06→19:56)
[2018-08-28] MEDS: CALCIUM ACETATE 667 MG CAP PO SCH ×3 (08:06→16:34)
[2018-08-28 08:08] LABS: Basophils # (auto) 0.02 K/uL (0-0.2); Basophils % (auto) 0.4 %; Eosinophils # (auto) 0.39 K/uL (0-0.5); Eosinophils % (auto) 7.3 %; Hematocrit (blood only) 28.9 % (37-47); Hemoglobin 9.1 g/dL (12.0-16.0); Immature Granulocytes # (auto) 0.01 K/uL (0.00-0.02); Immature Granulocytes % (auto) 0.2 %; Lymphocytes # (auto) 0.91 K/uL (1.2-3.4); Mean Corpuscular Hgb Conc 31.5 g/dL (32-36); Mean Corpuscular Volume 94.1 fL (80-100); Mean Platelet Volume 8.4 fL (7.4-10.4); Monocytes # (auto) 0.35 K/uL (0.11-0.59); Monocytes % (auto) 6.5 %; Neutrophils # (auto) 3.67 K/uL (1.4-6.5); Neutrophils % (auto) 68.6 %; Platelet Count 114 K/uL (130-400); RDW Coefficient of Variation 16.3 % (11.5-14.5); RDW Standard Deviation 55.2 fL (36.4-46.3); Red Blood Count 3.07 M/uL (4.2-5.4); White Blood Count 5.35 K/uL (4.8-10.8)
[2018-08-28 08:16] LABS: INR 1.1 (0.9-1.1); Prothrombin Time 11.5 Seconds (9.0-12.0)
[2018-08-28 08:53] LABS: Hepatitis B Surface Antibody Immune
[2018-08-28 08:58] LABS: Calcium 8.4 mg/dl (8.5-10.1); Creatinine Clr Calc Pharmacy 11.5 ml/min; Est GFR (African American) 6.7; Est GFR (Non-African American) 5.8; Potassium 3.3 mmol/L (3.5-5.1)
[2018-08-28 09:04] LABS: Hepatitis B Surface Antigen Neg (Neg)
[2018-08-28] MEDS: FAMOTIDINE 20 MG TAB PO SCH (09:06)
[2018-08-28] MEDS: SERTRALINE HCL 50 MG TABLET PO SCH (09:06)
[2018-08-28] MEDS: CARVEDILOL 3.125 MG TAB PO SCH ×2 (09:06→19:57)
[2018-08-28] MEDS: HEPARIN SOD 5,000 UNIT/0.5 ML VIAL SQ SCH ×2 (09:12→16:35)
[2018-08-28] MEDS ORDERED: POTASSIUM CHLORIDE 10 MEQ TABCR PO STA (09:49)
[2018-08-28] MEDS ORDERED: AZTREONAM IP ONE (13:00)
[2018-08-28] MEDS ORDERED: [UNRECOGNIZED DRUG - OTHER] IP ONE (13:00)
[2018-08-28] MEDS ORDERED: HEPARIN SODIUM IP ONE (13:00)
--- NOTE | 2018-08-28 14:24 | Infectious Disease Progress Nt ---
Date of Service August 28, 2018 Assessment & Plan (1) Peritonitis due to infected peritoneal dialysis catheter: Patient with possible peritonitis versus abdominal wall cellulitis, improving with current therapy. Patient to continue with intraperitoneal therapy with vancomycin and aztreonam as per nephrology. Will follow. (2) Cellulitis: Subjective Patient seen in follow-up for possible peritonitis and abdominal wall cellulitis. Feeling somewhat better, remains afebrile. Pain slightly improved. No other new complaints. Follow-up cultures of peritoneal fluid are no growth to date with negative Gram stain. Review of Systems All systems reviewed & are unremarkable except as noted in HPI & below Physical Exam 2 Vital Signs (Past 24 Hours): Last Vital Signs Temp 36.8 C 08/28/18 12:35 Pulse 82 08/28/18 12:35 Resp 18 08/28/18 12:35 BP 147/94 H 08/28/18 07:13 Pulse Ox 96 08/28/18 07:13 Constitutional: WD/WN, vitals as above comfortable; no acute distress Eyes: PERRL, conjunctivae normal, anicteric sclerae ENMT: external ear and nose normal, oropharynx normal Neck: trachea midline, no thyromegaly neck nontender Respiratory: normal respiratory effort, lungs clear to auscultation normal percussion; no respiratory distress Cardiovascular: Rate/Rhythm: regular rate and regular rhythm Heart Sounds: normal S1 and normal S2; no gallop, no murmur and no cardiac rub Gastrointestinal (Abdomen): Inspection/Auscultation: abdomen normal to inspection Percussion/Palpation: + abdomen tender; no guarding, no hepatosplenomegaly and no abdominal mass Musculoskeletal: no cyanosis or clubbing, extremities motor strength 5/5 No spinal tenderness, no joint swelling or erythema Skin: no rashes, warm and dry no lesions Neurologic: moves all extremities and awake; no focal motor deficits Motor/ Sensory: no sensory deficit Psychiatric: A+Ox3, euthymic affect Lymphatic: no cervical or axillary lymphadenopathy no inguinal lymphadenopathy Results & Data Laboratory Results Short CBC 08/28/18 Range/Units 07:45 WBC 5.35 (4.8-10.8) K/uL Hgb 9.1 L (12.0-16.0) g/dL Hct 28.9 L (37-47) % Plt Count 114 L (130-400) K/uL BMP 08/28/18 07:45 Sodium 134 L Potassium 3.3 L D Chloride 96 L Carbon Dioxide 26 BUN 25 H D Creatinine 8.25 H* D Glucose 99 Calcium 8.4 L Diagnostic Findings Microbiology 08/26/18 21:45 Abdomen Gram Stain - Final 08/26/18 21:45 Abdomen Aerobic and Anaerobic Culture - Preliminary Corynebacterium species 08/26/18 20:35 Urine,Indwelling Cath Urine Culture - Final No growth - less than 1,000 colonies/mL. 08/27/18 12:30 Peritoneal Fluid Gram Stain - Final 08/27/18 12:30 Peritoneal Fluid Aerobic and Anaerobic Culture - Preliminary No growth to date. 08/27/18 Unknown Abdomen Gram Stain - Final 08/27/18 Unknown Abdomen Aerobic and Anaerobic Culture - Preliminary No growth to date. 08/26/18 20:56 Blood Blood Culture - Preliminary No growth to date. 08/26/18 20:45 Blood Blood Culture - Preliminary No growth to date. _ (1) Cellulitis Laterality: Site of cellulitis: Site of cellulitis of extremity: Site of cellulitis of trunk:
--- NOTE | 2018-08-28 16:14 | Hospitalist Progress Note ---
Date of Service August 28, 2018 Assessment & Plan (1) Peritonitis due to infected peritoneal dialysis catheter: ? infection. Pt reports pain, however, abdomen is not distended and initial culture results are not consistent with infection. There is no evidence of cellulitis superficially around the PD catheter, which looks clean and well flushed. She is feeling improved today. Vanc IP and Aztreonam IP only. Zosyn stopped. ID ok with this plan. This will be for a short course in case of peritonitis and will be dosed bby Nephro. Of note, patient reports some abdominal pain but with distraction there is no pain, grimacing, guarding or other concern for pain with palpation on exam. Dilaudid PRN was stopped. (2) Dependence on peritoneal dialysis: s/p failed transplant in the past, Plan per Nephrology (3) Hypokalemia: replaced cautiously in renal patient-small amt today. Trend BMP in am. (4) Smoker: Declines nicotine patch. Encouraged to quit. (5) Anemia in CKD (chronic kidney disease): At baseline. (6) DVT prophylaxis: Heparin in setting of ESRD, poss infection and h/o PE in the past. Full Code Dispo-likely will return home once medically stable. Ragini Glover DO [facility] Hospitalist Subjective 32 yo ESRD patient on PD presents with abdominal pain and strange appearing peritoneal fluid during flush at home. Improved since PD overnight and with abx. Reports some nausea and low appetite but no vomiting. Reports some abdominal pain today but this is improved. Physical Exam 2 Vital Signs (Past 24 Hours): Last Vital Signs Temp 36.9 C 08/28/18 15:09 Pulse 82 08/28/18 15:09 Resp 18 08/28/18 15:09 BP 162/93 H 08/28/18 15:09 Pulse Ox 93 08/28/18 15:09 CONSTITUTIONAL: WNWD, vitals as above, generally well-appearing EYES: normal conjuctivae, no scleral icterus ENT: MMM RESPIRATORY: clear to auscultation bilaterally, no crackles, rales or wheezes, normal respiratory effort CARDIOVASCULAR: regular rate and rhythm, S1 and 2 heard without murmurs, gallops or rubs, no JVD, no peripheral edema GASTROINTESTINAL: +PD catheter with no surrounding cellulitis or obvious drainage onto dressing. Catheter is clean and well flushed with clean dressing in place. Normal bowel sounds, soft, nontender with distraction, nondistended MUSCULOSKELETAL: strength 5/5 throughout, head is normocephalic and atraumatic SKIN: warm and dry NEUROLOGIC: CN 2-12 grossly intact, no gross focal deficits. PSYCHIATRIC: alert cooperative and oriented to person, place and time. Euthymic mood Results & Data Laboratory Results Short CBC 08/28/18 Range/Units 07:45 WBC 5.35 (4.8-10.8) K/uL Hgb 9.1 L (12.0-16.0) g/dL Hct 28.9 L (37-47) % Plt Count 114 L (130-400) K/uL BMP 08/28/18 07:45 Sodium 134 L Potassium 3.3 L D Chloride 96 L Carbon Dioxide 26 BUN 25 H D Creatinine 8.25 H* D Glucose 99 Calcium 8.4 L
[2018-08-28] MEDS: PROMETHAZINE HCL 25 MG TAB PO PRN (17:28)
[2018-08-28] MEDS: MIRTAZAPINE TAB 15 MG TAB PO SCH (19:57)
[2018-08-28] MEDS ORDERED: DAPTOmycin 250 MG in SYRINGE 0 ML IV SCH (22:00)
[2018-08-28] MEDS: OXYCODONE/ACETAMINOPHEN 5mg/325mg TAB PO PRN (22:22)
[2018-08-29] MEDS: HYDROmorphone INJ 0.5 MG/0.5 ML SYR IV PRN ×2 (00:01→02:53)
[2018-08-29] MEDS: HEPARIN SOD 5,000 UNIT/0.5 ML VIAL SQ SCH ×3 (01:19→15:40)
[2018-08-29] MEDS: cloNIDine HCl 0.1 MG TAB PO PRN ×2 (05:21→15:37)
[2018-08-29] MEDS: FAMOTIDINE 20 MG TAB PO SCH (08:26)
[2018-08-29] MEDS: SERTRALINE HCL 50 MG TABLET PO SCH (08:26)
[2018-08-29] MEDS: CARVEDILOL 3.125 MG TAB PO SCH ×2 (08:26→20:56)
[2018-08-29] MEDS: CALCIUM ACETATE 667 MG CAP PO SCH ×3 (08:27→17:00)
[2018-08-29] MEDS: GABAPENTIN 300 MG CAP PO SCH ×3 (08:27→20:55)
[2018-08-29] MEDS: AMLODIPINE BESYLATE 5 MG TAB PO SCH (08:28)
[2018-08-29 08:34] LABS: Basophils # (auto) 0.03 K/uL (0-0.2); Basophils % (auto) 0.6 %; Eosinophils # (auto) 0.44 K/uL (0-0.5); Eosinophils % (auto) 8.9 %; Hematocrit (blood only) 28.7 % (37-47); Hemoglobin 9.1 g/dL (12.0-16.0); Immature Granulocytes # (auto) 0.02 K/uL (0.00-0.02); Immature Granulocytes % (auto) 0.4 %; Lymphocytes # (auto) 0.88 K/uL (1.2-3.4); Lymphocytes % (auto) 17.8 %; Mean Corpuscular Hgb Conc 31.7 g/dL (32-36); Mean Corpuscular Volume 93.8 fL (80-100); Mean Platelet Volume 8.8 fL (7.4-10.4); Monocytes # (auto) 0.52 K/uL (0.11-0.59); Monocytes % (auto) 10.5 %; Neutrophils # (auto) 3.04 K/uL (1.4-6.5); Neutrophils % (auto) 61.8 %; Platelet Count 142 K/uL (130-400); RDW Coefficient of Variation 16.1 % (11.5-14.5); RDW Standard Deviation 54.8 fL (36.4-46.3); Red Blood Count 3.06 M/uL (4.2-5.4); White Blood Count 4.93 K/uL (4.8-10.8)
[2018-08-29] MEDS: OXYCODONE/ACETAMINOPHEN 5mg/325mg TAB PO PRN ×3 (09:00→22:31)
[2018-08-29 09:17] LABS: BUN Creatinine Ratio 2.9 (10-20); Calcium 8.3 mg/dl (8.5-10.1); Creatinine Clr Calc Pharmacy 9.9 ml/min; Est GFR (African American) 5.6; Est GFR (Non-African American) 4.8; Potassium 3.4 mmol/L (3.5-5.1)
--- NOTE | 2018-08-29 11:16 | Nephrology Progress Note ---
Date of Service August 29, 2018 Assessment & Plan (1) CKD (chronic kidney disease) stage V requiring chronic dialysis: with a creatinine of 18 on presentation some skepticism that she is doing full home peritoneal dialysis treatment regimen > improved to 8 after essentially 2 dialysis txs (one HD, one PD) She had HD 08/27/18 for 4 hrs to improve bp/vol status and pd to ensure catheter function ok -- both on first full day of admission -favor now doing consistent PD regimen while in house - for PD tonight same rx (2) Peritoneal dialysis catheter in place: suspect more hemoperitoneum than peritonitis. -will do MDE w/ 2 gm aztreonam in long dwell (and 1 gm vanco if < 15 level random) and continue pd this evening with heparin in bags -we are arranging outpt training for her to be able to use heparin in PD fluid as indicated > training for early next week; PD nurse to reach out to her on this >on admission concern for PD cath malfunction/ was not draining well at home and draining slowly here >> resolved by adding heparin to bags. cath position ok on ct scan. exit site looks pristine and no exudate or other infectious signs on exam such as erythema, induration, or tenderness isolated to tunnel tract. pt w/ hx of recurrent hemoperitoneum and fluid studies support that process here though no ed hemoperitoneum on dialysate that I saw; also w/hx of ovarian cysts --500 units/L heparin w/ dialysate on PD to keep PD cath flowing (3) Abdominal pain: chronic; ensure daily bm -we are treating empirically for peritonitis though my index of suspicion is low ; fluid studies once properly obtained, do not support peritonitis -- the specimen timed "unknown" from 08/27/18 is not correctly obtained; the one from 1230 same date is. the specimen she brought in (time = unknown) unfortunately not viable after 8 hr dwell >defer to primary service to ensure pt w/ BM daily; avoid phos containing agents to achieve this >stop systemic abtx and do IP ones s above -PD cell count/diff do not support peritonitis; cx to date negative -will repeat fluid studies today -patient is anuric and has not been cath'd >> ? source of urine specimen on her ; do not treat for UTI >>I doubt this is peritonitis but given abd pain, delay in getting specimen will treat empirically for 3 days then stop if cxs negative (cxs from 08/27 are both negative to date) (4) HTN (hypertension): bp still labile w/ systolic generally in 150-160s ON but improved on last recheck -continue home CCB and BB and do consistent dialysis (5) Anemia due to end stage renal disease: -stable/satisfactory -f/u pending Fe stores -had epo w/ HD --ck cbc q 48 hrs Subjective had 2.7 L fluid removal on PD overnight. abd pain controlled on eval on rounds this am at 0700. no further issues reported w/ draining, effluent. abd pain controlled; moving bowels; no v/v. no sob. no palpitations or edema or chest pain. anuric. no rash/change in pustules on legs. no focal numbness/ weakness. no headache or confusion. eating well; no fevers. no bleeding. Physical Exam 2 Vital Signs (Past 24 Hours): Last Vital Signs Temp 36.9 C 08/29/18 08:25 Pulse 87 08/29/18 08:25 Resp 18 08/29/18 08:25 BP 162/88 H 08/29/18 07:43 Pulse Ox 96 08/29/18 07:43 Constitutional: well developed, well nourished and + obese; no acute distress lying flat on RA and sleeping soundly; wakens fully and manuevers readily for exam Eyes: EOM intact bilaterally ENMT: Ears: no external ear abnormality Nose: no external nose abnormality Mouth: + dry oral mucous membranes Neck: no nuchal rigidity Respiratory: normal respiratory effort Auscultation: lungs clear to auscultation bilaterally and + diminished lung sounds Cardiovascular: RRR, no murmur, no edema Gastrointestinal (Abdomen): Inspection/Auscultation: normal bowel sounds and + significant pannus Percussion/Palpation: + abdomen tender (BLQ to deep palpation) and abdomen soft; no guarding PD cath present Musculoskeletal: Extremities: strength 5/5 throughout Skin: no rashes, warm and dry normal turgor and + rash (pustules BLE shins ) Psychiatric: Orientation: alert, oriented x 3 and cooperative Eye Contact: + fair eye contact Speech: normal rate/rhythm/volume of speech Affect: + anxious affect Thought Process: + tangential thought process and + perseveration Results & Data Laboratory Results Abnormal lab results 08/29/18 08/29/18 Range/Units 07:43 07:43 RBC 3.06 L (4.2-5.4) M/uL Hgb 9.1 L (12.0-16.0) g/dL Hct 28.7 L (37-47) % MCHC 31.7 L (32-36) g/dL RDW Std Deviation 54.8 H (36.4-46.3) fL RDW Coeff of Laith 16.1 H (11.5-14.5) % Lymph # (Auto) 0.88 L (1.2-3.4) K/uL Potassium 3.4 L (3.5-5.1) mmol/L Anion Gap 12.0 H (3-11) BUN 28 H (7-18) mg/dl Creatinine 9.58 H* D (0.6-1.2) mg/dl BUN/Creatinine Ratio 2.9 L (10-20) Calcium 8.3 L (8.5-10.1) mg/dl _ (1) Abdominal pain Abdominal location: right lower quadrant Qualified Code(s): R10.31 - Right lower quadrant pain (2) HTN (hypertension) Hypertension type: essential hypertension Qualified Code(s): I10 - Essential (primary) hypertension
[2018-08-29 11:56] LABS: Mononuclear WBC Peritoneal 81.3 %; Polynuclear WBC Peritoneal 18.7 %; RBC Peritoneal Fluid (A) < 3000 /uL; WBC Peritoneal Fluid (A) 16 /ul (0-300)
[2018-08-29] MEDS ORDERED: POTASSIUM CHLORIDE 20 MEQ TABCR PO ONE (12:36)
[2018-08-29] MEDS ORDERED: AZTREONAM IP ONE (14:00)
[2018-08-29] MEDS ORDERED: HEPARIN SODIUM IP ONE (14:00)
[2018-08-29] MEDS ORDERED: [UNRECOGNIZED DRUG - OTHER] IP ONE (14:00)
--- NOTE | 2018-08-29 16:45 | Hospitalist Progress Note ---
Date of Service August 29, 2018 Assessment & Plan (1) Peritonitis due to infected peritoneal dialysis catheter: ? infection. Pt reports pain, however, abdomen is not distended and initial culture results are not consistent with infection. There is no evidence of cellulitis superficially around the PD catheter, which looks clean and well flushed. She is feeling improved today. Vanc IP and Aztreonam IP only. Zosyn stopped. ID ok with this plan. One more IP dose of Aztreonam per Nephro and then she can go after appropriate dwell time--this will likely be a DC inthe morning. (2) Dependence on peritoneal dialysis: s/p failed transplant in the past, Plan per Nephrology (3) Hypokalemia: per Nephro (4) Smoker: Declines nicotine patch. Encouraged to quit. (5) Anemia in CKD (chronic kidney disease): At baseline. (6) DVT prophylaxis: Heparin in setting of ESRD, poss infection and h/o PE in the past. Full Code Dispo-home in am. Ragini Glover DO [facility] Hospitalist Subjective denies pain feeling well tolerating PO denies fevers or chills. Physical Exam 2 Vital Signs (Past 24 Hours): Last Vital Signs Temp 36.7 C 08/29/18 15:28 Pulse 71 08/29/18 15:28 Resp 22 08/29/18 15:28 BP 166/104 H 08/29/18 15:28 Pulse Ox 98 08/29/18 15:28 CONSTITUTIONAL: WNWD, vitals as above, generally well-appearing EYES: normal conjuctivae, no scleral icterus ENT: MMM RESPIRATORY: clear to auscultation bilaterally, no crackles, rales or wheezes, normal respiratory effort CARDIOVASCULAR: regular rate and rhythm, S1 and 2 heard without murmurs, gallops or rubs, no JVD, no peripheral edema GASTROINTESTINAL: +PD catheter with no surrounding cellulitis or obvious drainage onto dressing. Catheter is clean and well flushed with clean dressing in place. Normal bowel sounds, soft, nontender with distraction, nondistended MUSCULOSKELETAL: strength 5/5 throughout, head is normocephalic and atraumatic SKIN: warm and dry NEUROLOGIC: CN 2-12 grossly intact, no gross focal deficits. PSYCHIATRIC: alert cooperative and oriented to person, place and time. Euthymic mood Results & Data Laboratory Results Short CBC 08/29/18 Range/Units 07:43 WBC 4.93 (4.8-10.8) K/uL Hgb 9.1 L (12.0-16.0) g/dL Hct 28.7 L (37-47) % Plt Count 142 (130-400) K/uL BMP 08/29/18 07:43 Sodium 136 Potassium 3.4 L Chloride 98 Carbon Dioxide 27 BUN 28 H Creatinine 9.58 H* D Glucose 88 Calcium 8.3 L Medications Administered Current Inpatient Medications Albuterol (Ventolin Hfa) 2 puffs INH QID PRN PRN Reason: Shortness Of Breath Or Wheezin Stop: 09/26/18 01:00 Amlodipine Besylate (Norvasc) 5 mg PO DAILY [facility] Stop: 09/26/18 23:14 Last Admin: 08/29/18 08:28 Dose: 5 mg Calcium Acetate (Phoslo) 2,668 mg PO TIDM NIKKI Stop: 09/26/18 07:59 Last Admin: 08/29/18 17:00 Dose: 2,668 mg Calcium Acetate (Phoslo) 1,334 mg PO UD PRN PRN Reason: WITH SNACKS Stop: 09/26/18 01:00 Carvedilol (Coreg) 3.125 mg PO BID [facility] Stop: 09/26/18 01:00 Last Admin: 08/29/18 20:56 Dose: 3.125 mg Clonidine HCl (Catapres) 0.1 mg PO Q4H PRN PRN Reason: Hypertension Stop: 09/26/18 03:25 Last Admin: 08/30/18 03:36 Dose: 0.1 mg Famotidine (Pepcid) 40 mg PO QAM NIKKI Stop: 09/26/18 08:59 Last Admin: 08/29/18 08:26 Dose: 40 mg Gabapentin (Neurontin) 600 mg PO HS NIKKI Stop: 09/26/18 20:59 Last Admin: 08/29/18 20:55 Dose: 600 mg Gabapentin (Neurontin) 300 mg PO BID@0900,1400 NIKKI Stop: 09/26/18 08:59 Last Admin: 08/29/18 14:01 Dose: 300 mg Heparin Sodium (Porcine) (Heparin Sodium (Porcine)) 5,000 units SQ Q8H NIKKI Stop: 09/27/18 08:59 Last Admin: 08/30/18 00:33 Dose: Not Given Loratadine (Claritin) 10 mg PO HS PRN PRN Reason: ALLERGIES Stop: 09/26/18 01:00 Mirtazapine (Remeron) 15 mg PO HS NIKKI Stop: 09/26/18 20:59 Last Admin: 08/29/18 20:56 Dose: 15 mg Oxycodone/Acetaminophen (Percocet 5mg/325mg) 1 tab PO Q4H PRN PRN Reason: Pain Stop: 09/10/18 04:57 Last Admin: 08/30/18 03:39 Dose: 1 tab Promethazine HCl (Phenergan) 25 mg PO Q6H PRN PRN Reason: Nausea And Vomiting Stop: 09/26/18 15:29 Last Admin: 08/28/18 17:28 Dose: 25 mg Sertraline HCl (Zoloft) 50 mg PO DAILY NIKKI Stop: 09/26/18 08:59 Last Admin: 08/29/18 08:26 Dose: 50 mg Sumatriptan Succinate (Imitrex) 50 mg PO UD PRN PRN Reason: Migraine Headache Stop: 09/26/18 01:00
--- NOTE | 2018-08-29 19:51 | Emergency Department Note ---
Entered by Sonia De acting as a scribe for History of Present Illness General Chief complaint: Abdominal Pain Stated complaint: HAS PD,ABD PAIN,DRAINING BLOOD Time Seen by Provider: 08/26/18 20:07 Source: patient Mode of arrival: ambulatory Limitations: no limitations History of Present Illness Onset (ago): day(s) 1 Location: abdomen Radiation: non-radiation Pain Consistency: + constant Maximum Pain Intensity: 10 Current Pain Intensity: 10 Relieved By: + none Exacerbated By: + movement Associated symptoms: + other (+hematuria); no fever/chills The patient is a 32 year old female who presents to the Emergency Room with complaints of abdominal pain. She rates her discomfort as a 10/10 in severity and states her abdomen feels "hard". Movement worsens her pain. She has a history CKD and is currently undergoing peritoneal dialysis. She notes her urine output has bloody. She denies any recent fevers. Home Medications Home Medications Medication Instructions Recorded Confirmed Type albuterol sulfate [Ventolin HFA] 2 puff INHALATION QID PRN 05/30/18 08/26/18 History calcium acetate 1 - 2 tabs PO UD 05/30/18 08/26/18 History calcium acetate 4 tab PO TIDM 05/30/18 08/26/18 History gabapentin [Neurontin] 300 mg PO BID 05/30/18 08/26/18 History sertraline [Zoloft] 50 mg PO DAILY 05/30/18 08/26/18 History sumatriptan succinate [Imitrex] 50 mg PO UD PRN 05/30/18 08/26/18 History gabapentin 600 mg PO HS 07/30/18 08/26/18 History loratadine 10 mg PO HS PRN 07/30/18 08/26/18 History carvedilol 3.125 mg PO BID 30 Days #60 tab 07/31/18 08/26/18 Rx famotidine 40 mg PO QAM 30 Days #60 tab 07/31/18 08/26/18 Rx amlodipine [Norvasc] 5 mg PO DAILY 08/26/18 08/26/18 History mirtazapine [Remeron] 15 mg PO HS 08/26/18 08/26/18 History Allergies Allergy/AdvReac Type Severity Reaction Status Date / Time cefaclor Allergy Intermediate Rash Verified 07/30/18 12:47 amoxicillin AdvReac Mild VOMITING Verified 07/30/18 12:47 clavulanic acid AdvReac Mild VOMITING Verified 07/30/18 12:47 Past Med/Surg History Medical History Fistula of artery (Chronic) Diastolic CHF (Chronic) "echo 04/18/17 - EF 60-65%, grade II diastolic dysfunction" FSGS (focal segmental glomerulosclerosis) (Chronic) DM2 (diabetes mellitus, type 2) (Chronic) HTN (hypertension) (Chronic) CKD (chronic kidney disease) stage V requiring chronic dialysis (Chronic) Peritoneal dialysis catheter in place (Chronic) Dependence on peritoneal dialysis (Acute) Surgical History H/O knee surgery (Resolved) H/O: (Resolved) H/O tubal ligation (Resolved) H/O eye surgery (Resolved) H/O section (Resolved) History of cholecystectomy (Resolved) H/O hernia repair (Resolved) Family History Grandmother Hx of CABG Mother Diabetes Father Crohns disease Other No pertinent family history Social History Current Living Situation: Boarding Home Current Living Situation Comment: [facility] Feels Safe at Home: Yes Safety Concerns: Feels Safe At This Time Smoking Status: Current every day smoker Tobacco Type: cigarettes Do You Dip or Chew Tobacco: No Second Hand Exposure: No Tobacco Cessation Education Requested by Patient: No Hx Alcohol Use: No Hx Substance Use: No Beliefs That Will Affect Care: None Communication Ability: Effective Review of Systems See HPI for pertinent positives & negatives. and A total of 10 systems reviewed and were otherwise negative Physical Exam Vital Signs Vital Signs - 24 hr 08/29/18 00:25 08/29/18 02:50 08/29/18 05:08 Temperature 36.7 C Temperature Source Oral Pulse Rate Pulse Rate [Apical] Pulse Rate [Finger] Pulse Rate [Right Brachial] 74 73 83 Pulse Rhythm [Apical] Pulse Rhythm [Right Brachial] Pulse Strength [Apical] Pulse Strength [Right Brachial] Respiratory Rate 18 Respiratory Effort / Characteristics Respiratory Depth Normal Respiratory Pattern Blood Pressure - Sitting Blood Pressure Blood Pressure [Left Arm] Blood Pressure [Right Arm] 161/90 H 164/101 H 165/100 H Blood Pressure Mean [Left Arm] Blood Pressure Mean [Right Arm] 113 122 121 Blood Pressure Position Blood Pressure Position [Left Arm] Blood Pressure Position [Right Arm] Lying Sitting Lying Pulse Oximetry 94 99 Oxygen Delivery Method Room Air Room Air 08/29/18 07:43 08/29/18 08:25 08/29/18 11:42 Temperature 36.9 C 36.9 C 36.4 C L Temperature Source Oral Oral Oral Pulse Rate Pulse Rate [Apical] 87 Pulse Rate [Finger] Pulse Rate [Right Brachial] 73 73 61 Pulse Rhythm [Apical] Regular Pulse Rhythm [Right Brachial] Pulse Strength [Apical] Normal Pulse Strength [Right Brachial] Respiratory Rate 18 18 18 Respiratory Effort / Characteristics Non-Labored Respiratory Depth Normal Respiratory Pattern Regular Blood Pressure - Sitting 147/94 H Blood Pressure Blood Pressure [Left Arm] 135/63 Blood Pressure [Right Arm] 162/88 H Blood Pressure Mean [Left Arm] 87 Blood Pressure Mean [Right Arm] 112 Blood Pressure Position Blood Pressure Position [Left Arm] Lying Blood Pressure Position [Right Arm] Pulse Oximetry 96 95 Oxygen Delivery Method Room Air Room Air 08/29/18 15:00 08/29/18 15:28 Temperature 36.7 C 36.7 C Temperature Source Oral Oral Pulse Rate 71 Pulse Rate [Apical] Pulse Rate [Finger] 71 Pulse Rate [Right Brachial] 71 Pulse Rhythm [Apical] Pulse Rhythm [Right Brachial] Regular Pulse Strength [Apical] Pulse Strength [Right Brachial] Normal Respiratory Rate 22 22 Respiratory Effort / Characteristics Respiratory Depth Normal Respiratory Pattern Blood Pressure - Sitting Blood Pressure 166/104 H Blood Pressure [Left Arm] Blood Pressure [Right Arm] 166/104 H 166/104 H Blood Pressure Mean [Left Arm] Blood Pressure Mean [Right Arm] 124 Blood Pressure Position Lying Blood Pressure Position [Left Arm] Blood Pressure Position [Right Arm] Lying Pulse Oximetry 98 Oxygen Delivery Method Room Air GENERAL: Awake, alert, well-appearing, in no distress HENT: Normocephalic, atraumatic. Oropharynx unremarkable. EYES: Normal conjunctiva. Sclera non-icteric. NECK: Supple. No nuchal rigidity. FROM. No masses. RESPIRATORY: Clear to auscultation. No wheezes. No rales. Normal respiratory effort. CARDIAC: Normal rate. Normal rhythm. No murmurs. No rubs. Extremities warm and well perfused. Pulses equal. No JVD. GI: Abdomen is distended, diffusely tender throughout. No rebound or guarding. No masses. RECTAL: Deferred. MUSCULOSKELETAL: Atraumatic. Chest examination reveals no tenderness. The back is symmetrical on inspection without obvious abnormality. There is no CVA tenderness to palpation. No joint edema. LOWER EXTREMITIES: Calves are equal size bilaterally and non-tender. No edema. No discoloration. NEURO: Normal sensorium. No sensory or motor deficits noted. Course 2009: Past medical records reviewed. The patient was evaluated in room C2, and a complete history and physical examination were performed. 2147: [facility] The patient will be further evaluated. Consultations Consultation #1: [facility] The patient will be further evaluated. Time: 21:47 Administered Medications Amlodipine Besylate (Norvasc) 5 mg PO DAILY NIKKI Stop: 09/26/18 23:14 Last Admin: 08/29/18 08:28 Dose: 5 mg Admin: 08/28/18 00:09 Dose: 5 mg Calcium Acetate (Phoslo) 2,668 mg PO TIDM NIKKI Stop: 09/26/18 07:59 Last Admin: 08/29/18 17:00 Dose: 2,668 mg Admin: 08/29/18 12:49 Dose: 2,668 mg Admin: 08/29/18 08:27 Dose: 2,668 mg Admin: 08/28/18 16:34 Dose: 2,668 mg Admin: 08/28/18 13:16 Dose: 2,668 mg Admin: 08/28/18 08:06 Dose: 2,668 mg Admin: 08/27/18 16:55 Dose: 2,668 mg Admin: 08/27/18 14:30 Dose: Not Given Admin: 08/27/18 08:05 Dose: Not Given Carvedilol (Coreg) 3.125 mg PO BID NIKKI Stop: 09/26/18 01:00 Last Admin: 08/29/18 08:26 Dose: 3.125 mg Admin: 08/28/18 19:57 Dose: 3.125 mg Admin: 08/28/18 09:06 Dose: 3.125 mg Admin: 08/27/18 21:32 Dose: 3.125 mg Admin: 08/27/18 08:05 Dose: 3.125 mg Admin: 08/27/18 01:39 Dose: 3.125 mg Clonidine HCl (Catapres) 0.1 mg PO Q4H PRN PRN Reason: Hypertension Stop: 09/26/18 03:25 Last Admin: 08/29/18 15:37 Dose: 0.1 mg Admin: 08/29/18 05:21 Dose: 0.1 mg Famotidine (Pepcid) 40 mg PO QAM [facility] Stop: 09/26/18 08:59 Last Admin: 08/29/18 08:26 Dose: 40 mg Admin: 08/28/18 09:06 Dose: 40 mg Admin: 08/27/18 08:05 Dose: 40 mg Gabapentin (Neurontin) 600 mg PO [facility] Stop: 09/26/18 20:59 Last Admin: 08/28/18 19:56 Dose: 600 mg Admin: 08/27/18 20:17 Dose: 600 mg Gabapentin (Neurontin) 300 mg PO BID@0900,1400 [facility] Stop: 09/26/18 08:59 Last Admin: 08/29/18 14:01 Dose: 300 mg Admin: 08/29/18 08:27 Dose: 300 mg Admin: 08/28/18 13:32 Dose: 300 mg Admin: 08/28/18 08:06 Dose: 300 mg Admin: 08/27/18 14:30 Dose: Not Given Admin: 08/27/18 08:04 Dose: 300 mg Heparin Sodium (Porcine) (Heparin Sodium (Porcine)) 5,000 units SQ Q8H NIKKI Stop: 09/27/18 08:59 Last Admin: 08/29/18 15:40 Dose: Not Given Admin: 08/29/18 08:27 Dose: Not Given Admin: 08/29/18 01:19 Dose: Not Given Admin: 08/28/18 16:35 Dose: Not Given Admin: 08/28/18 09:12 Dose: Not Given Mirtazapine (Remeron) 15 mg PO HS [facility] Stop: 09/26/18 20:59 Last Admin: 08/28/18 19:57 Dose: 15 mg Admin: 08/27/18 21:32 Dose: 15 mg Oxycodone/Acetaminophen (Percocet 5mg/325mg) 1 tab PO Q4H PRN PRN Reason: Pain Stop: 09/10/18 04:57 Last Admin: 08/29/18 14:01 Dose: 1 tab Admin: 08/29/18 09:00 Dose: 1 tab Admin: 08/28/18 22:22 Dose: 1 tab Promethazine HCl (Phenergan) 25 mg PO Q6H PRN PRN Reason: Nausea And Vomiting Stop: 09/26/18 15:29 Last Admin: 08/28/18 17:28 Dose: 25 mg Admin: 08/27/18 17:18 Dose: 25 mg Sertraline HCl (Zoloft) 50 mg PO DAILY NIKKI Stop: 09/26/18 08:59 Last Admin: 08/29/18 08:26 Dose: 50 mg Admin: 08/28/18 09:06 Dose: 50 mg Admin: 08/27/18 08:05 Dose: 50 mg Discontinued Medications Amlodipine Besylate (Norvasc) 5 mg PO DAILY NIKKI Stop: 09/26/18 08:59 Last Admin: 08/27/18 08:05 Dose: 5 mg Heparin Sodium (Porcine) (Heparin Iv Bolus) 1,000 units IV ONE ONE Stop: 08/27/18 09:40 Last Admin: 08/27/18 09:45 Dose: Not Given Heparin Sodium (Porcine) (Heparin Iv Bolus) 400 units IV Q1H NIKKI Stop: 08/27/18 11:46 Last Admin: 08/27/18 11:45 Dose: Not Given Admin: 08/27/18 10:45 Dose: Not Given Hydralazine HCl (Hydralazine Hcl) 10 mg IV NOW STA Stop: 08/27/18 02:19 Last Admin: 08/27/18 02:44 Dose: 10 mg Hydromorphone HCl (Dilaudid) 1 mg IV Q15M PRN PRN Reason: Pain Stop: 09/09/18 20:10 Last Admin: 08/26/18 23:41 Dose: 1 mg Admin: 08/26/18 22:10 Dose: 1 mg Admin: 08/26/18 21:06 Dose: 1 mg Hydromorphone HCl (Dilaudid) 0.5 mg IV Q3H PRN PRN Reason: Pain Stop: 09/10/18 01:00 Last Admin: 08/29/18 02:53 Dose: 0.5 mg Admin: 08/29/18 00:01 Dose: 0.5 mg Admin: 08/28/18 19:56 Dose: 0.5 mg Admin: 08/28/18 16:33 Dose: 0.5 mg Admin: 08/28/18 13:16 Dose: 0.5 mg Admin: 08/28/18 01:40 Dose: 0.5 mg Admin: 08/27/18 20:16 Dose: 0.5 mg Admin: 08/27/18 17:33 Dose: 0.5 mg Admin: 08/27/18 14:30 Dose: 0.5 mg Admin: 08/27/18 08:06 Dose: 0.5 mg Admin: 08/27/18 04:55 Dose: 0.5 mg Admin: 08/27/18 01:53 Dose: 0.5 mg Vancomycin HCl 1,000 mg/ (Syringe) 20 mls @ 0 mls/hr IP NOW ONE Stop: 08/26/18 20:31 Last Admin: 08/26/18 21:12 Dose: 999 mls/hr Piperacillin Sod/Tazobactam Sod (Zosyn) 4.5 gm in 120 mls @ 240 mls/hr IV NOW ONE Stop: 08/26/18 22:12 Last Infusion: 08/26/18 22:27 Dose: 0 mls/hr Admin: 08/26/18 21:53 Dose: 240 mls/hr Daptomycin 225 mg/ Syringe 4.5 mls @ 2.25 mls/min IV NOW ONE Stop: 08/26/18 21:44 Last Admin: 08/26/18 22:47 Dose: 2.25 mls/min Vancomycin HCl 2,000 mg/ (Peritoneal Dialysis Solution) 2,540 mls @ 0 mls/hr IP .Q0M ONE Stop: 08/27/18 03:01 Last Admin: 08/27/18 03:44 Dose: 25 mls/hr Ertapenem 500 mg/ Sodium (Chloride) 55 mls @ 110 mls/hr IV Q24H NIKKI; Protocol Stop: 09/06/18 05:59 Last Infusion: 08/27/18 06:13 Dose: 0 mls/hr Admin: 08/27/18 05:15 Dose: 110 mls/hr Epoetin Travis 14,000 units/ (Syringe) 0.7 mls @ 1 mls/min IV TODAY NIKKI Stop: 08/27/18 08:46 Last Admin: 08/27/18 11:07 Dose: 1 mls/min Vancomycin HCl 1,500 mg/ (Peritoneal Dialysis Solution) 2,030 mls @ 0 mls/hr IP .Q0M ONE Stop: 08/27/18 11:16 Last Admin: 08/27/18 14:05 Dose: 2,000 mls/hr Piperacillin Sod/Tazobactam (Sod 3.375 gm/ Dextrose) 115 mls @ 28.75 mls/hr IV Q12H [facility]; Protocol Stop: 09/06/18 15:59 Last Infusion: 08/28/18 17:29 Dose: 0 mls/hr Admin: 08/28/18 16:33 Dose: 28.8 mls/hr Infusion: 08/28/18 07:35 Dose: 0 mls/hr Admin: 08/28/18 03:59 Dose: 28.8 mls/hr Infusion: 08/27/18 21:32 Dose: 0 mls/hr Admin: 08/27/18 16:54 Dose: 28.8 mls/hr Aztreonam 2,000 mg/ Heparin Sodium (Porcine) 1,000 units/Peritoneal Dialysis Solution 2,021 mls @ 0 mls/hr IP .Q0M ONE; Protocol Stop: 08/28/18 13:01 Last Admin: 08/28/18 12:32 Dose: 2,000 mls/hr Ondansetron HCl (Zofran) 4 mg IV NOW STA Stop: 08/26/18 20:12 Last Admin: 08/26/18 21:05 Dose: 4 mg Potassium Chloride (Klor-Con M10) 20 meq PO NOW STA Stop: 08/28/18 09:50 Last Admin: 08/28/18 10:21 Dose: 20 meq Potassium Chloride (Klor-Con M20) 40 meq PO ONE ONE Stop: 08/29/18 12:37 Last Admin: 08/29/18 12:50 Dose: 40 meq Medical Decision Making Differential Diagnosis Differential diagnoses includes but is not limited to gastritis, peptic ulcer disease, GERD, gallbladder disease, pancreatitis, small bowel obstruction, acute coronary syndrome, pericarditis, ischemic bowel, irritable bowel disease, irritable bowel syndrome, appendicitis, diverticulitis, malignancy, hernia, urinary tract infection, torsion, /ectopic , perforation, trauma, infectious. Medical Records Attestation: I reviewed the patient's medical records. Home Medications Current Medication List: was personally reviewed by me Laboratory Data Attestation: I reviewed the patient's lab results. Result diagrams: 08/29/18 07:43 08/29/18 07:43 Lab Results 08/26/18 08/26/18 08/26/18 Range/Units 20:35 20:45 20:45 WBC 7.48 (4.8-10.8) K/uL RBC 3.01 L (4.2-5.4) M/uL Hgb 8.9 L (12.0-16.0) g/dL Hct 28.5 L (37-47) % MCV 94.7 (80-100) fL MCH 29.6 (25-34) pg MCHC 31.2 L (32-36) g/dL RDW Std Deviation 56.4 H (36.4-46.3) fL RDW Coeff of Laith 16.2 H (11.5-14.5) % Plt Count 123 L (130-400) K/uL MPV 9.4 (7.4-10.4) fL Immature Gran % (Auto) 0.3 % Neut % (Auto) 77.5 % Lymph % (Auto) 12.4 % Powell % (Auto) 3.6 % Eos % (Auto) 5.9 % Baso % (Auto) 0.3 % Immature Gran # (Auto) 0.02 (0.00-0.02) K/uL Neut # (Auto) 5.80 (1.4-6.5) K/uL Lymph # (Auto) 0.93 L (1.2-3.4) K/uL Powell # (Auto) 0.27 (0.11-0.59) K/uL Eos # (Auto) 0.44 (0-0.5) K/uL Baso # (Auto) 0.02 (0-0.2) K/uL RBC Morphology Unremarkable Anisocytosis Ovalocytes PT (9.0-12.0) Seconds INR (0.9-1.1) Sodium 137 (136-145) mmol/L Potassium 4.3 (3.5-5.1) mmol/L Chloride 102 (98-107) mmol/L Carbon Dioxide 20 L (21-32) mmol/L Anion Gap 15.0 H (3-11) BUN 83 H (7-18) mg/dl Creatinine 17.90 H* (0.6-1.2) mg/dl Est Cr Clr Drug Dosing 5.3 ml/min Est GFR ( Amer) 2.6 Est GFR (Non-Af Amer) 2.3 BUN/Creatinine Ratio 4.7 L (10-20) Glucose 95 (70-99) mg/dl Estimat Average Glucose mg/dl Hemoglobin A1c (4.5-5.6) % Calcium 7.7 L (8.5-10.1) mg/dl Magnesium (1.8-2.4) mg/dl Iron (35-150) mcg/dl Transferrin (200-360) mg/dl Transferrin % Sat (15-50) % Total Bilirubin 0.3 (0.2-1) mg/dl AST 17 (15-37) U/L ALT 26 (12-78) U/L Alkaline Phosphatase 86 (45-117) U/L Total Protein 6.3 L (6.4-8.2) gm/dl Albumin 2.5 L (3.4-5.0) gm/dl Globulin 3.8 (2.5-4.0) gm/dl Albumin/Globulin Ratio 0.7 L (0.9-2) Lipase 189 (73-393) U/L Urine Color Yellow Urine Appearance Cloudy H (Clear) Urine pH 8.0 H (4.5-7.5) Ur Specific Hope 1.014 (1.000-1.030) Urine Protein 4+ H (Negative) Urine Glucose (UA) 1+ H (Negative) Urine Ketones Negative (Negative) Urine Blood 3+ H (Negative) Urine Nitrite Negative (Negative) Urine Bilirubin Negative (Negative) Urine Urobilinogen Negative (Negative) Ur Leukocyte Esterase Negative (Negative) Urine WBC (Auto) >30 H (0-5) /hpf Urine RBC (Auto) >30 H (0-4) /hpf U Hyaline Cast (Auto) 1-5 (0-5) /lpf U Epithel Cells (Auto) >30 H (0-5) /lpf Urine Bacteria (Auto) Negative (Negative) Ur Renal Epithelial Cell Not Reportable Peritoneal Color Peritoneal Appearance Peritoneal WBC (0-300) /ul Peritoneal RBC /uL Mononuclear WBCs % % Polynuclear WBCs % % Random Vancomycin mcg/ml Hep Bs Antigen (Neg) Hep Bs Antibody Hep Bs Antibody, Quant (>or=10mIU/mL Immune) mIU/mL 08/27/18 08/27/18 08/27/18 Range/Units 05:16 05:16 05:16 WBC 8.19 (4.8-10.8) K/uL RBC 3.02 L (4.2-5.4) M/uL Hgb 8.7 L (12.0-16.0) g/dL Hct 28.4 L (37-47) % MCV 94.0 (80-100) fL MCH 28.8 (25-34) pg MCHC 30.6 L (32-36) g/dL RDW Std Deviation 56.3 H (36.4-46.3) fL RDW Coeff of Laith 16.4 H (11.5-14.5) % Plt Count 135 (130-400) K/uL MPV 9.8 (7.4-10.4) fL Immature Gran % (Auto) 0.4 % Neut % (Auto) 74.1 % Lymph % (Auto) 14.5 % Powell % (Auto) 4.5 % Eos % (Auto) 6.3 % Baso % (Auto) 0.2 % Immature Gran # (Auto) 0.03 H (0.00-0.02) K/uL Neut # (Auto) 6.06 (1.4-6.5) K/uL Lymph # (Auto) 1.19 L (1.2-3.4) K/uL Powell # (Auto) 0.37 (0.11-0.59) K/uL Eos # (Auto) 0.52 H (0-0.5) K/uL Baso # (Auto) 0.02 (0-0.2) K/uL RBC Morphology Anisocytosis Present Ovalocytes 1+ PT (9.0-12.0) Seconds INR (0.9-1.1) Sodium 136 (136-145) mmol/L Potassium 4.5 (3.5-5.1) mmol/L Chloride 103 (98-107) mmol/L Carbon Dioxide 19 L (21-32) mmol/L Anion Gap 14.0 H (3-11) BUN 85 H (7-18) mg/dl Creatinine 17.70 H* (0.6-1.2) mg/dl Est Cr Clr Drug Dosing 5.3 ml/min Est GFR ( Amer) 2.7 Est GFR (Non-Af Amer) 2.3 BUN/Creatinine Ratio 4.8 L (10-20) Glucose 106 H (70-99) mg/dl Estimat Average Glucose 108 mg/dl Hemoglobin A1c 5.4 (4.5-5.6) % Calcium 7.5 L (8.5-10.1) mg/dl Magnesium 2.1 (1.8-2.4) mg/dl Iron (35-150) mcg/dl Transferrin (200-360) mg/dl Transferrin % Sat (15-50) % Total Bilirubin (0.2-1) mg/dl AST (15-37) U/L ALT (12-78) U/L Alkaline Phosphatase (45-117) U/L Total Protein (6.4-8.2) gm/dl Albumin (3.4-5.0) gm/dl Globulin (2.5-4.0) gm/dl Albumin/Globulin Ratio (0.9-2) Lipase (73-393) U/L Urine Color Urine Appearance (Clear) Urine pH (4.5-7.5) Ur Specific Hope (1.000-1.030) Urine Protein (Negative) Urine Glucose (UA) (Negative) Urine Ketones (Negative) Urine Blood (Negative) Urine Nitrite (Negative) Urine Bilirubin (Negative) Urine Urobilinogen (Negative) Ur Leukocyte Esterase (Negative) Urine WBC (Auto) (0-5) /hpf Urine RBC (Auto) (0-4) /hpf U Hyaline Cast (Auto) (0-5) /lpf U Epithel Cells (Auto) (0-5) /lpf Urine Bacteria (Auto) (Negative) Ur Renal Epithelial Cell Peritoneal Color Peritoneal Appearance Peritoneal WBC (0-300) /ul Peritoneal RBC /uL Mononuclear WBCs % % Polynuclear WBCs % % Random Vancomycin mcg/ml Hep Bs Antigen (Neg) Hep Bs Antibody Hep Bs Antibody, Quant (>or=10mIU/mL Immune) mIU/mL 08/27/18 08/27/18 08/28/18 Range/Units 12:30 Unknown 07:45 WBC (4.8-10.8) K/uL RBC (4.2-5.4) M/uL Hgb (12.0-16.0) g/dL Hct (37-47) % MCV (80-100) fL MCH (25-34) pg MCHC (32-36) g/dL RDW Std Deviation (36.4-46.3) fL RDW Coeff of Laith (11.5-14.5) % Plt Count (130-400) K/uL MPV (7.4-10.4) fL Immature Gran % (Auto) % Neut % (Auto) % Lymph % (Auto) % Powell % (Auto) % Eos % (Auto) % Baso % (Auto) % Immature Gran # (Auto) (0.00-0.02) K/uL Neut # (Auto) (1.4-6.5) K/uL Lymph # (Auto) (1.2-3.4) K/uL Powell # (Auto) (0.11-0.59) K/uL Eos # (Auto) (0-0.5) K/uL Baso # (Auto) (0-0.2) K/uL RBC Morphology Anisocytosis Ovalocytes PT (9.0-12.0) Seconds INR (0.9-1.1) Sodium (136-145) mmol/L Potassium (3.5-5.1) mmol/L Chloride (98-107) mmol/L Carbon Dioxide (21-32) mmol/L Anion Gap (3-11) BUN (7-18) mg/dl Creatinine (0.6-1.2) mg/dl Est Cr Clr Drug Dosing ml/min Est GFR ( Amer) Est GFR (Non-Af Amer) BUN/Creatinine Ratio (10-20) Glucose (70-99) mg/dl Estimat Average Glucose mg/dl Hemoglobin A1c (4.5-5.6) % Calcium (8.5-10.1) mg/dl Magnesium (1.8-2.4) mg/dl Iron (35-150) mcg/dl Transferrin (200-360) mg/dl Transferrin % Sat (15-50) % Total Bilirubin (0.2-1) mg/dl AST (15-37) U/L ALT (12-78) U/L Alkaline Phosphatase (45-117) U/L Total Protein (6.4-8.2) gm/dl Albumin (3.4-5.0) gm/dl Globulin (2.5-4.0) gm/dl Albumin/Globulin Ratio (0.9-2) Lipase (73-393) U/L Urine Color Urine Appearance (Clear) Urine pH (4.5-7.5) Ur Specific Hope (1.000-1.030) Urine Protein (Negative) Urine Glucose (UA) (Negative) Urine Ketones (Negative) Urine Blood (Negative) Urine Nitrite (Negative) Urine Bilirubin (Negative) Urine Urobilinogen (Negative) Ur Leukocyte Esterase (Negative) Urine WBC (Auto) (0-5) /hpf Urine RBC (Auto) (0-4) /hpf U Hyaline Cast (Auto) (0-5) /lpf U Epithel Cells (Auto) (0-5) /lpf Urine Bacteria (Auto) (Negative) Ur Renal Epithelial Cell Peritoneal Color COLORLESS PALE YELLOW Peritoneal Appearance CLEAR CLOUDY Peritoneal WBC 46 611 H (0-300) /ul Peritoneal RBC < 3000 3000 /uL Mononuclear WBCs % 68.3 71.3 % Polynuclear WBCs % 31.7 28.7 % Random Vancomycin mcg/ml Hep Bs Antigen Neg (Neg) Hep Bs Antibody Immune Hep Bs Antibody, Quant > 1000.00 (>or=10mIU/mL Immune) mIU/mL 08/28/18 08/28/18 08/28/18 Range/Units 07:45 07:45 07:45 WBC 5.35 (4.8-10.8) K/uL RBC 3.07 L (4.2-5.4) M/uL Hgb 9.1 L (12.0-16.0) g/dL Hct 28.9 L (37-47) % MCV 94.1 (80-100) fL MCH 29.6 (25-34) pg MCHC 31.5 L (32-36) g/dL RDW Std Deviation 55.2 H (36.4-46.3) fL RDW Coeff of Laith 16.3 H (11.5-14.5) % Plt Count 114 L (130-400) K/uL MPV 8.4 (7.4-10.4) fL Immature Gran % (Auto) 0.2 % Neut % (Auto) 68.6 % Lymph % (Auto) 17.0 % Powell % (Auto) 6.5 % Eos % (Auto) 7.3 % Baso % (Auto) 0.4 % Immature Gran # (Auto) 0.01 (0.00-0.02) K/uL Neut # (Auto) 3.67 (1.4-6.5) K/uL Lymph # (Auto) 0.91 L (1.2-3.4) K/uL Powell # (Auto) 0.35 (0.11-0.59) K/uL Eos # (Auto) 0.39 (0-0.5) K/uL Baso # (Auto) 0.02 (0-0.2) K/uL RBC Morphology Anisocytosis Ovalocytes PT 11.5 (9.0-12.0) Seconds INR 1.1 (0.9-1.1) Sodium 134 L (136-145) mmol/L Potassium 3.3 L D (3.5-5.1) mmol/L Chloride 96 L (98-107) mmol/L Carbon Dioxide 26 (21-32) mmol/L Anion Gap 12.0 H (3-11) BUN 25 H D (7-18) mg/dl Creatinine 8.25 H* D (0.6-1.2) mg/dl Est Cr Clr Drug Dosing 11.5 ml/min Est GFR ( Amer) 6.7 Est GFR (Non-Af Amer) 5.8 BUN/Creatinine Ratio 3.0 L (10-20) Glucose 99 (70-99) mg/dl Estimat Average Glucose mg/dl Hemoglobin A1c (4.5-5.6) % Calcium 8.4 L (8.5-10.1) mg/dl Magnesium (1.8-2.4) mg/dl Iron 56 (35-150) mcg/dl Transferrin 164 L (200-360) mg/dl Transferrin % Sat 24 (15-50) % Total Bilirubin (0.2-1) mg/dl AST (15-37) U/L ALT (12-78) U/L Alkaline Phosphatase (45-117) U/L Total Protein (6.4-8.2) gm/dl Albumin (3.4-5.0) gm/dl Globulin (2.5-4.0) gm/dl Albumin/Globulin Ratio (0.9-2) Lipase (73-393) U/L Urine Color Urine Appearance (Clear) Urine pH (4.5-7.5) Ur Specific Hope (1.000-1.030) Urine Protein (Negative) Urine Glucose (UA) (Negative) Urine Ketones (Negative) Urine Blood (Negative) Urine Nitrite (Negative) Urine Bilirubin (Negative) Urine Urobilinogen (Negative) Ur Leukocyte Esterase (Negative) Urine WBC (Auto) (0-5) /hpf Urine RBC (Auto) (0-4) /hpf U Hyaline Cast (Auto) (0-5) /lpf U Epithel Cells (Auto) (0-5) /lpf Urine Bacteria (Auto) (Negative) Ur Renal Epithelial Cell Peritoneal Color Peritoneal Appearance Peritoneal WBC (0-300) /ul Peritoneal RBC /uL Mononuclear WBCs % % Polynuclear WBCs % % Random Vancomycin mcg/ml Hep Bs Antigen (Neg) Hep Bs Antibody Hep Bs Antibody, Quant (>or=10mIU/mL Immune) mIU/mL 08/28/18 08/29/18 08/29/18 Range/Units 10:28 07:43 07:43 WBC 4.93 (4.8-10.8) K/uL RBC 3.06 L (4.2-5.4) M/uL Hgb 9.1 L (12.0-16.0) g/dL Hct 28.7 L (37-47) % MCV 93.8 (80-100) fL MCH 29.7 (25-34) pg MCHC 31.7 L (32-36) g/dL RDW Std Deviation 54.8 H (36.4-46.3) fL RDW Coeff of Laith 16.1 H (11.5-14.5) % Plt Count 142 (130-400) K/uL MPV 8.8 (7.4-10.4) fL Immature Gran % (Auto) 0.4 % Neut % (Auto) 61.8 % Lymph % (Auto) 17.8 % Powell % (Auto) 10.5 % Eos % (Auto) 8.9 % Baso % (Auto) 0.6 % Immature Gran # (Auto) 0.02 (0.00-0.02) K/uL Neut # (Auto) 3.04 (1.4-6.5) K/uL Lymph # (Auto) 0.88 L (1.2-3.4) K/uL Powell # (Auto) 0.52 (0.11-0.59) K/uL Eos # (Auto) 0.44 (0-0.5) K/uL Baso # (Auto) 0.03 (0-0.2) K/uL RBC Morphology Anisocytosis Ovalocytes PT (9.0-12.0) Seconds INR (0.9-1.1) Sodium (136-145) mmol/L Potassium (3.5-5.1) mmol/L Chloride (98-107) mmol/L Carbon Dioxide (21-32) mmol/L Anion Gap (3-11) BUN (7-18) mg/dl Creatinine (0.6-1.2) mg/dl Est Cr Clr Drug Dosing ml/min Est GFR ( Amer) Est GFR (Non-Af Amer) BUN/Creatinine Ratio (10-20) Glucose (70-99) mg/dl Estimat Average Glucose mg/dl Hemoglobin A1c (4.5-5.6) % Calcium (8.5-10.1) mg/dl Magnesium (1.8-2.4) mg/dl Iron (35-150) mcg/dl Transferrin (200-360) mg/dl Transferrin % Sat (15-50) % Total Bilirubin (0.2-1) mg/dl AST (15-37) U/L ALT (12-78) U/L Alkaline Phosphatase (45-117) U/L Total Protein (6.4-8.2) gm/dl Albumin (3.4-5.0) gm/dl Globulin (2.5-4.0) gm/dl Albumin/Globulin Ratio (0.9-2) Lipase (73-393) U/L Urine Color Urine Appearance (Clear) Urine pH (4.5-7.5) Ur Specific Hope (1.000-1.030) Urine Protein (Negative) Urine Glucose (UA) (Negative) Urine Ketones (Negative) Urine Blood (Negative) Urine Nitrite (Negative) Urine Bilirubin (Negative) Urine Urobilinogen (Negative) Ur Leukocyte Esterase (Negative) Urine WBC (Auto) (0-5) /hpf Urine RBC (Auto) (0-4) /hpf U Hyaline Cast (Auto) (0-5) /lpf U Epithel Cells (Auto) (0-5) /lpf Urine Bacteria (Auto) (Negative) Ur Renal Epithelial Cell Peritoneal Color Peritoneal Appearance Peritoneal WBC (0-300) /ul Peritoneal RBC /uL Mononuclear WBCs % % Polynuclear WBCs % % Random Vancomycin 17.6 15.6 mcg/ml Hep Bs Antigen (Neg) Hep Bs Antibody Hep Bs Antibody, Quant (>or=10mIU/mL Immune) mIU/mL 08/29/18 08/29/18 Range/Units 07:43 Unknown WBC (4.8-10.8) K/uL RBC (4.2-5.4) M/uL Hgb (12.0-16.0) g/dL Hct (37-47) % MCV (80-100) fL MCH (25-34) pg MCHC (32-36) g/dL RDW Std Deviation (36.4-46.3) fL RDW Coeff of Laith (11.5-14.5) % Plt Count (130-400) K/uL MPV (7.4-10.4) fL Immature Gran % (Auto) % Neut % (Auto) % Lymph % (Auto) % Powell % (Auto) % Eos % (Auto) % Baso % (Auto) % Immature Gran # (Auto) (0.00-0.02) K/uL Neut # (Auto) (1.4-6.5) K/uL Lymph # (Auto) (1.2-3.4) K/uL Powell # (Auto) (0.11-0.59) K/uL Eos # (Auto) (0-0.5) K/uL Baso # (Auto) (0-0.2) K/uL RBC Morphology Anisocytosis Ovalocytes PT (9.0-12.0) Seconds INR (0.9-1.1) Sodium 136 (136-145) mmol/L Potassium 3.4 L (3.5-5.1) mmol/L Chloride 98 (98-107) mmol/L Carbon Dioxide 27 (21-32) mmol/L Anion Gap 12.0 H (3-11) BUN 28 H (7-18) mg/dl Creatinine 9.58 H* D (0.6-1.2) mg/dl Est Cr Clr Drug Dosing 9.9 ml/min Est GFR ( Amer) 5.6 Est GFR (Non-Af Amer) 4.8 BUN/Creatinine Ratio 2.9 L (10-20) Glucose 88 (70-99) mg/dl Estimat Average Glucose mg/dl Hemoglobin A1c (4.5-5.6) % Calcium 8.3 L (8.5-10.1) mg/dl Magnesium (1.8-2.4) mg/dl Iron (35-150) mcg/dl Transferrin (200-360) mg/dl Transferrin % Sat (15-50) % Total Bilirubin (0.2-1) mg/dl AST (15-37) U/L ALT (12-78) U/L Alkaline Phosphatase (45-117) U/L Total Protein (6.4-8.2) gm/dl Albumin (3.4-5.0) gm/dl Globulin (2.5-4.0) gm/dl Albumin/Globulin Ratio (0.9-2) Lipase (73-393) U/L Urine Color Urine Appearance (Clear) Urine pH (4.5-7.5) Ur Specific Hope (1.000-1.030) Urine Protein (Negative) Urine Glucose (UA) (Negative) Urine Ketones (Negative) Urine Blood (Negative) Urine Nitrite (Negative) Urine Bilirubin (Negative) Urine Urobilinogen (Negative) Ur Leukocyte Esterase (Negative) Urine WBC (Auto) (0-5) /hpf Urine RBC (Auto) (0-4) /hpf U Hyaline Cast (Auto) (0-5) /lpf U Epithel Cells (Auto) (0-5) /lpf Urine Bacteria (Auto) (Negative) Ur Renal Epithelial Cell Peritoneal Color COLORLESS Peritoneal Appearance CLEAR Peritoneal WBC 16 (0-300) /ul Peritoneal RBC < 3000 /uL Mononuclear WBCs % 81.3 % Polynuclear WBCs % 18.7 % Random Vancomycin mcg/ml Hep Bs Antigen (Neg) Hep Bs Antibody Hep Bs Antibody, Quant (>or=10mIU/mL Immune) mIU/mL Imaging Data Radiologist's Impression: Radiology results as stated below per my review and the radiologist's interpretation: CT OF THE ABDOMEN AND PELVIS WITHOUT CONTRAST CLINICAL HISTORY: Abdominal pain. Dialysis. COMPARISON STUDY: CT of the abdomen and pelvis March 20, 2018. TECHNIQUE: Axial images of the abdomen and pelvis were obtained without IV contrast. Images were reviewed in the axial, sagittal, and coronal planes. Automated exposure control was utilized for the study. A dose lowering technique was utilized adhering to the principles of ALARA. FINDINGS: The heart is mildly enlarged. There are small bilateral pleural effusions. Interlobular septal thickening represents pulmonary edema. There is mild anasarca. No pneumatosis, free air or portal venous gas is present. Peritoneal dialysis catheter is within the peritoneal cavity, located between the uterus and bladder. Of note, there is significant skin thickening and subcutaneous infiltration of the lower mid abdomen. This could reflect cellulitis. No fluid collection is identified to suggest an abscess. A small amount of fluid is noted within the umbilical hernia. A small amount of fluid within the abdomen and pelvis is noted. Unenhanced images of the liver, spleen, adrenal glands and pancreas are unremarkable. Both kidneys are atrophic. A peripherally calcified right lower quadrant abnormality likely reflects a failed allograft. No suspicious osseous lesion is noted. IMPRESSION: 1. Peritoneal dialysis catheter located coiled within the pelvis. Small amount of fluid within the abdomen and pelvis. Skin thickening and moderate subcutaneous infiltration of the anterior abdominal wall adjacent to a portion of the dialysis catheter which raises the possibility of cellulitis and involvement of the dialysis catheter/peritoneal fluid. No abscess identified. Discussed with Dr. Shaikh at time of dictation. 2. Small bilateral pleural effusions with moderate interstitial pulmonary edema. 3. No bowel obstruction. Normal appendix. Electronically signed by: Sebastian Mcclain M.D. 08/26/2018 9:49 PM Blood Pressure Blood Pressure Findings: Elevated blood pressure Blood Pressure Disposition: further management by hospitalist RONIT Watkins This is a 32-year-old female who is concerned that her dialysis catheter is infected. A culture was obtained from her dialysate. She was sent for a CAT scan of the abdomen pelvis this was confirmed concerning for cellulitis around the area of her catheter. The patient was started on IV antibiotics. She was given Dilaudid here in the emergency department as well as Zofran. Repeat examination revealed improvement the patient's symptoms. The patient was started on Zosyn as well as daptomycin. I did discuss the case with the hospitalist service who agreed to admit the patient. Patient was in agreement with the treatment plan. Impression & Plan Cellulitis Discharge Plan Visit Data *Final* Discharge Date/Time: 08/27/18 00:32 Chief Complaint: Abdominal Pain Stated Complaint: HAS PD,ABD PAIN,DRAINING BLOOD ED Provider: Baljit Shaikh Discharge Problem: Cellulitis Patient Disposition: Admitted As Inpatient Discharge Instructions Interventions: ED Discharge Assessment Last Done: 08/27/18 00:32 The scribe's documentation has been prepared under my direction and personally reviewed by me in its entirety. I confirm that the note above accurately reflects all work, treatment, procedures, and medical decision making performed by me.
[2018-08-29] MEDS: MIRTAZAPINE TAB 15 MG TAB PO SCH (20:56)
[2018-08-30] MEDS: HEPARIN SOD 5,000 UNIT/0.5 ML VIAL SQ SCH ×2 (00:33→08:22)
[2018-08-30] MEDS: cloNIDine HCl 0.1 MG TAB PO PRN (03:36)
[2018-08-30] MEDS: OXYCODONE/ACETAMINOPHEN 5mg/325mg TAB PO PRN ×2 (03:39→08:24)
[2018-08-30 07:19] LABS: Basophils # (auto) 0.02 K/uL (0-0.2); Basophils % (auto) 0.5 %; Eosinophils # (auto) 0.44 K/uL (0-0.5); Eosinophils % (auto) 10.4 %; Hematocrit (blood only) 29.5 % (37-47); Hemoglobin 9.3 g/dL (12.0-16.0); Lymphocytes # (auto) 0.98 K/uL (1.2-3.4); Lymphocytes % (auto) 23.2 %; Mean Corpuscular Hgb Conc 31.5 g/dL (32-36); Mean Corpuscular Volume 94.6 fL (80-100); Mean Platelet Volume 9.2 fL (7.4-10.4); Monocytes # (auto) 0.33 K/uL (0.11-0.59); Monocytes % (auto) 7.8 %; Neutrophils # (auto) 2.45 K/uL (1.4-6.5); Neutrophils % (auto) 58.1 %; Platelet Count 126 K/uL (130-400); RDW Coefficient of Variation 16.3 % (11.5-14.5); RDW Standard Deviation 55.4 fL (36.4-46.3); Red Blood Count 3.12 M/uL (4.2-5.4); White Blood Count 4.22 K/uL (4.8-10.8)
[2018-08-30] MEDS: GABAPENTIN 300 MG CAP PO SCH (08:19)
[2018-08-30] MEDS: CALCIUM ACETATE 667 MG CAP PO SCH (08:20)
[2018-08-30] MEDS: AMLODIPINE BESYLATE 5 MG TAB PO SCH (08:20)
[2018-08-30] MEDS: CARVEDILOL 3.125 MG TAB PO SCH (08:21)
[2018-08-30 08:27] LABS: BUN Creatinine Ratio 2.8 (10-20); Calcium 8.2 mg/dl (8.5-10.1); Creatinine Clr Calc Pharmacy 9.4 ml/min; Est GFR (African American) 5.3; Est GFR (Non-African American) 4.5; Potassium 3.4 mmol/L (3.5-5.1)
[2018-08-30] MEDS: FAMOTIDINE 20 MG TAB PO SCH (09:57)
[2018-08-30] MEDS: SERTRALINE HCL 50 MG TABLET PO SCH (09:57)
[2018-08-30] MEDS ORDERED: TRAMADOL HCL 50 MG TABLET PO STA (11:15)
--- NOTE | 2018-09-04 13:28 | Discharge Summary ---
Date of Service September 04, 2018 Admission HPI Per Admitting Provider HISTORY OF PRESENT ILLNESS: This is a 32-year-old female with past medical history significant for end-stage renal disease failed renal transplant, on peritoneal dialysis followed by Dr. Esteban; depression with anxiety; migraines; type 2 diabetes diet controlled; chronic anemia; tobacco abuse disorder; history of metabolic acidosis and hyperkalemia. Presents with abdominal pain. Patient says the last 2-3 days she is having abdominal pain, moderate to severe in nature associated with some nausea, no vomiting. No diarrhea or constipation. Today when , she noticed some blood and some cloudiness when she drained PD Cath and thought it could be infection and she came to the hospital. CAT scan of the abdomen and pelvis was done which showed possible cellulitis around the PD cath site and possible involvement of PD cath?peritoneal fluids. However, this patient is afebrile. No white count. Currently resting comfortably. Complains of abdominal pain, 5/10 in severity, and requests pain medications. Denies any headache. No blurred vision, no ear ache, no runny nose, no sore throat, no difficulty swallowing, no cough, no chest pain. She has some shortness of breath.Last admission HD was done to take extra fluid out. Patient has AV fistula on left Upper extremity. But patient likes to be on Peritoneal dialysis as she likes to work. 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 Admission Exam Per Admitting Provider PHYSICAL EXAMINATION: GENERAL: The patient is obese, not in acute distress. VITAL SIGNS: Temperature 36.8, pulse 92, respiratory rate 18, blood pressure 186/144, oxygen 97% room air. HEENT: No pallor, no icterus. Pupils equal, round, and reactive to light. NECK: No JVD, no neck masses, no carotid bruits. CARDIOVASCULAR: S1, S2 heard, regular rate and rhythm, no murmur, no gallop. RESPIRATORY SYSTEM: Normal AP diameter. No accessory muscle use. No wheezing, no crackles. ABDOMEN: Soft, bowel sounds present. Some diffuse tenderness. Mild guarding, no rigidity. Peritoneal cath site is clean, no drainage seen, no erythema seen. CENTRAL NERVOUS SYSTEM: Nonfocal. EXTREMITIES: No edema. Principal Diagnosis Abdominal pain, poss PD cath infection Discharge Exam CONSTITUTIONAL: WNWD, vitals as above, generally well-appearing EYES: normal conjuctivae, no scleral icterus ENT: MMM RESPIRATORY: clear to auscultation bilaterally, no crackles, rales or wheezes, normal respiratory effort CARDIOVASCULAR: regular rate and rhythm, S1 and 2 heard without murmurs, gallops or rubs, no JVD, no peripheral edema GASTROINTESTINAL: +PD catheter with no surrounding cellulitis or obvious drainage onto dressing. Catheter is clean and well flushed with clean dressing in place. Normal bowel sounds, soft, nontender with distraction, nondistended MUSCULOSKELETAL: strength 5/5 throughout, head is normocephalic and atraumatic SKIN: warm and dry NEUROLOGIC: CN 2-12 grossly intact, no gross focal deficits. PSYCHIATRIC: alert cooperative and oriented to person, place and time. Euthymic mood Discharge Data Allergies Allergy/AdvReac Type Severity Reaction Status Date / Time cefaclor Allergy Intermediate Rash Verified 07/30/18 12:47 amoxicillin AdvReac Mild VOMITING Verified 07/30/18 12:47 clavulanic acid AdvReac Mild VOMITING Verified 07/30/18 12:47 Consultations 08/26/18 21:45 ED Decision to Admit Stat 08/27/18 01:01 Consult Nephrology Routine 08/27/18 08:00 Consult Infectious Diseases Routine Ordered Studies 08/26/18 20:11 CT abd pelvis wo con Stat Hospital Course (1) Peritonitis due to infected peritoneal dialysis catheter: (2) Dependence on peritoneal dialysis: (3) Hypokalemia: (4) Smoker: (5) Anemia in CKD (chronic kidney disease): 32-year-old peritoneal dialysis patient admitted for possible peritonitis. On arrival to the ER she was afebrile with a blood pressure 161/ 90 pulse of 74 and oxygen eating well on room air. Her abdomen was distended and diffusely tender throughout. CBC revealed baseline anemia. BMP reflected potassium 3.4, BUN 28, creatinine 9.58. Liver panel and lipase were normal. There is a urine sample on the chart, however the patient is an uric. There was a peritoneal fluid sample collected. CT the abdomen pelvis without contrast revealed skin thickening and moderate subcutaneous infiltration of the anterior abdominal wall adjacent to a portion of the dialysis catheter raising the possibility of cellulitis and involvement of dialysis catheter/peritoneal fluid. No abscess was identified. Small bilateral pleural effusions with moderate interstitial pulmonary edema were also seen. No bowel obstruction and normal appendix was also visualized. As a concern for possible peritonitis she was started on ertapenem and daptomycin. She was admitted to the hospitalist service. Nephrology and infectious disease were consulted. Per nephrology hemoperitoneum was suspected more so than peritonitis with stable clinical condition. Dialysis was performed as inpatient under the close watch of nephrology. Heparin was placed in her peritoneal diasylate with some improvement. Initially vancomycin was given intraperitoneal, however this was stopped and ertapenem was continued systemically with aztreonam given intraperitoneally. Vancomycin and and aztreonam were given intraperitoneally and ertapenem was continued systemically. Ultimately ertapenem was discontinued , and the patient received a 3-day course of intraperitoneal antibiotics. She was discharged in stable condition to home with resolution of abdominal pain, and recommended for close follow-up with primary care. Although she reported no abdominal pain, she was concerned about the pain returning again. Therefore , she was given tramadol to take as needed. Total Time Total Time Spent Total Time Spent (In Minutes): 60 Total Time Includes: Examination of the Patient, Discharge Planning, Medication Reconciliation and Communication With Other Providers Discharge Plan Discharge Items Patient Disposition: Home - Self-Care Reason For Visit: ABDOMINAL PAIN, POSSIBLE PD TO CATH INFECTION Discharge Diagnosis: Abdominal pain, poss PD cath infection Condition: Good Discharge Goals: Improve disease control Activity: Resume your previous activity Non-emergency contact: Primary Care Provider and Clinical Staff Anesthesiologist Call non-emergency contact if: you have any medication questions, your symptoms worsen, your pain is worsening and you have a fever Follow-up/Referrals: Leah Nieves MD, PhD [Family Provider] - Adolph Aldridge [Primary Care Provider] - Diet: Dialysis Renal Addtl Provider Instructions: Please take all medications as instructed on list below. Please follow-up with nephrology as instructed. It is recommended that you follow-up with your primary care doctor within 1 week of discharge from the hospital. It was a pleasure taking care of you! Please call if you have any questions or problems. You can reach a [facility] hospitalist on duty at [facility] 24 hours a day by calling [phone]. Take care of yourself. Ragini Glover, DO [facility] Hospitalist Prescriptions: New tramadol 50 mg tablet 50 mg PO DAILY PRN (Reason: severe pain) Qty: 10 RF: 0 Continue gabapentin 300 mg capsule 600 mg PO HS RF: 0 loratadine 10 mg tablet 10 mg PO HS PRN (Reason: Allergy Symptoms) RF: 0 sumatriptan succinate [Imitrex] 50 mg tablet 50 mg PO UD PRN (Reason: Migraine Headache) RF: 0 gabapentin [Neurontin] 300 mg capsule 300 mg PO BID RF: 0 albuterol sulfate [Ventolin HFA] 90 mcg/actuation HFA aerosol inhaler 2 puff Inhalation QID PRN (Reason: Shortness Of Breath Or Wheezing) RF: 0 sertraline [Zoloft] 50 mg tablet 50 mg PO DAILY RF: 0 calcium acetate 667 mg capsule 4 tab PO TIDM RF: 0 calcium acetate 667 mg capsule 1 - 2 tabs PO UD RF: 0 mirtazapine [Remeron] 15 mg Tablet 15 mg PO HS RF: 0 amlodipine [Norvasc] 5 mg tablet 5 mg PO DAILY RF: 0 Visit Report Forms: [facility] Stand-Alone Forms: [facility] Discharge Orders: Discharge Order (Routine); Ordered 08/30/18 Ordered By: Ragini Glover Admission Data Admit Date/Time: 08/26/18 23:27 Attending Provider: Ragini Glover Admit Provider: Daquan Morgan Primary Care Provider: Adolph Aldridge Other Providers: Leah Nieves ; Toby Keita Service: Medical Other Interventions: Discharge Summary Assessment (RN) Last Done: 08/30/18 11:34 DC Date/Time DO NOT enter until pt leaves facility: 08/30/18 12:50
== END 2018-08-30 12:50 | disposition home or self-care (01) | DRG 314 ==
LOC: ED 19:58 → 2N 23:27 → 2W 08-27 14:27
DX: Z99.2 Dependence on renal dialysis; I12.0 Hypertensive chronic kidney disease with stage 5 chronic kidney disease or end stage renal disease; K65.9 Peritonitis, unspecified; F41.9 Anxiety disorder, unspecified; K21.9 Gastro-esophageal reflux disease without esophagitis; E87.6 Hypokalemia; E11.22 Type 2 diabetes mellitus with diabetic chronic kidney disease; F32.9 Major depressive disorder, single episode, unspecified; Z79.899 Other long term (current) drug therapy; T82.7XXA Infection and inflammatory reaction due to other cardiac and vascular devices, implants and grafts, initial encounter; F17.210 Nicotine dependence, cigarettes, uncomplicated; Y84.1 Kidney dialysis as the cause of abnormal reaction of the patient, or of later complication, without mention of misadventure at the time of the procedure; N18.6 End stage renal disease; D63.1 Anemia in chronic kidney disease

== ENCOUNTER 2019-01-24 15:42 | Inpatient (IN) ==
--- NOTE | 2019-01-24 16:36 | XRay Report ---
XR KUB/Abdomen 1 view CLINICAL HISTORY: PD placement. isnt draining COMPARISON STUDY: 03/14/2017 FINDINGS: There is no pathologic bowel dilatation. There are surgical clips within the right upper qu adrant consistent with a prior cholecystectomy. There is a peritoneal dialysis catheter coiled within the right lower pelvis. There is a 44 mm calcification projected over the right iliac crest. This is likely secondary to a prior failed renal transplant. IMPRESSION: 1. No pathologic bowel dilatation 2. Peritoneal dialysis catheter coiled within the right lower pelvis. Electronically signed by: Win Foster M.D. 01/24/2019 4:35 PM
[2019-01-24 16:49] LABS: Basophils # (auto) 0.03 K/uL (0-0.2); Basophils % (auto) 0.5 %; Eosinophils # (auto) 0.23 K/uL (0-0.5); Eosinophils % (auto) 3.6 %; Hematocrit (blood only) 38.1 % (37-47); Hemoglobin 12.3 g/dL (12.0-16.0); Immature Granulocytes # (auto) 0.03 K/uL (0.00-0.02); Immature Granulocytes % (auto) 0.5 %; Lymphocytes # (auto) 1.21 K/uL (1.2-3.4); Lymphocytes % (auto) 18.8 %; Mean Corpuscular Hgb Conc 32.3 g/dL (32-36); Mean Corpuscular Volume 94.5 fL (80-100); Mean Platelet Volume 9.4 fL (7.4-10.4); Monocytes # (auto) 0.35 K/uL (0.11-0.59); Monocytes % (auto) 5.4 %; Neutrophils # (auto) 4.58 K/uL (1.4-6.5); Neutrophils % (auto) 71.2 %; Platelet Count 182 K/uL (130-400); RDW Coefficient of Variation 17.6 % (11.5-14.5); RDW Standard Deviation 60.5 fL (36.4-46.3); Red Blood Count 4.03 M/uL (4.2-5.4); White Blood Count 6.43 K/uL (4.8-10.8)
[2019-01-24 17:07] LABS: Albumin Globulin Ratio 0.7 (0.9-2); Albumin Level 3.3 gm/dl (3.4-5.0); BUN Creatinine Ratio 6.9 (10-20); Bilirubin,Total 0.4 mg/dl (0.2-1); Calcium 8.4 mg/dl (8.5-10.1); Creatinine Clr Calc Pharmacy 11.3 ml/min; Est GFR (African American) 6.6; Est GFR (Non-African American) 5.7; Globulin 4.4 gm/dl (2.5-4.0); Total Protein 7.7 gm/dl (6.4-8.2)
[2019-01-24 18:34] LABS: Potassium 5.5 mmol/L (3.5-5.1)
--- NOTE | 2019-01-24 20:11 | Emergency Department Note ---
Entered by Jessica Braden acting as a scribe for Berry Alves DO History of Present Illness General Chief complaint: Referred by Doctor Stated complaint: pd cath wont flush, refered by doctor Source: patient History of Present Illness Onset (ago): hour(s) less than 1 Location: abdomen Pain Consistency: + other (Sudden) Maximum Pain Intensity: 5 Quality: + other (Catheter malfunction) Associated symptoms: + other (Diarrhea); no chest pain, no cough, no nausea/vomiting and no shortness of breath Treatments prior to arrival: none The patient is a 33 year old female presenting to the Emergency Department complaining of sudden catheter malfunction starting less than 1 hour ago. The patient reports that she tried to flush her peritoneal catheter and none of the saline that she normally flushes with would go in. She states that she normally flushes the catheter with 2 liters of normal saline. She notes that she usually flushes her catheter once a week on Saturdays. She adds that she last flushes her catheter 1 week ago. The patient reports that she received peritoneal dialysis treatments for 2 years and was just switched to hemodialysis treatments 4 months ago. She states that she received hemodialysis treatments 3 times a week on Mondays, Wednesdays and Fridays. She notes that she has not missed a treatment in a month. She adds that she has been experiencing diarrhea for the past 3 days. The patient denies chest pain, shortness of breath, cough, nausea, vomiting and abdominal pain. Home Medications Home Medications Medication Instructions Recorded Confirmed Type albuterol sulfate [Ventolin HFA] 2 puff INHALATION QID PRN 05/30/18 01/24/19 History calcium acetate 1,334 mg PO UD 05/30/18 01/24/19 History calcium acetate 2,668 mg PO TIDM 05/30/18 01/24/19 History sertraline [Zoloft] 50 mg PO QAM 05/30/18 01/24/19 History sumatriptan succinate [Imitrex] 50 mg PO UD PRN 05/30/18 01/24/19 History loratadine 10 mg PO HS PRN 07/30/18 01/24/19 History carvedilol 3.125 mg PO BID 10/08/18 01/24/19 History famotidine 40 mg PO QAM 10/08/18 01/24/19 History mirtazapine 30 mg PO HS 10/08/18 01/24/19 History amlodipine [Norvasc] 10 mg PO QAM 11/03/18 01/24/19 History cinacalcet [Sensipar] 30 mg PO PM 11/03/18 01/24/19 History gabapentin [Neurontin] 400 mg PO QAM 11/03/18 01/24/19 History gabapentin [Neurontin] 800 mg PO HS 11/26/18 01/24/19 History acetaminophen [Tylenol Extra 1,000 mg PO Q6H PRN 12/04/18 01/24/19 History Strength] calcium acetate 667 mg PO UD 01/24/19 01/24/19 History gabapentin 400 mg PO .WITH LUNCH 01/24/19 01/24/19 History Allergies Allergy/AdvReac Type Severity Reaction Status Date / Time cefaclor Allergy Intermediate Rash Verified 01/19/19 14:55 amoxicillin AdvReac Mild VOMITING Verified 01/19/19 14:55 clavulanic acid AdvReac Mild VOMITING Verified 01/19/19 14:55 Past Med/Surg History Medical History Fistula of artery (Chronic) Diastolic CHF (Chronic) "echo 04/18/17 - EF 60-65%, grade II diastolic dysfunction" FSGS (focal segmental glomerulosclerosis) (Chronic) DM2 (diabetes mellitus, type 2) (Chronic) HTN (hypertension) (Chronic) CKD (chronic kidney disease) stage V requiring chronic dialysis (Chronic) Peritoneal dialysis catheter in place (Chronic) Dependence on peritoneal dialysis (Acute) Surgical History H/O knee surgery (Resolved) H/O: (Resolved) H/O tubal ligation (Resolved) H/O eye surgery (Resolved) H/O section (Resolved) History of cholecystectomy (Resolved) H/O hernia repair (Resolved) Family History Grandmother Hx of CABG Mother Diabetes Father Crohn's disease Other No pertinent family history Social History Preferred Language: Ukrainian Communication Ability: Effective Beliefs That Will Affect Care: None Current Living Situation: Family and Significant Other Current Living Situation Comment: [facility] Feels Safe at Home: Yes Smoking Status: Current every day smoker Tobacco Type: cigarettes Cigarettes Per Day: 10 Second Hand Exposure: No Hx Alcohol Use: Yes (1 drink/year) Hx Substance Use: No Review of Systems See HPI for pertinent positives & negatives. and A total of 10 systems reviewed and were otherwise negative Physical Exam Vital Signs Vital Signs - 24 hr 01/24/19 15:45 01/24/19 18:00 01/24/19 18:58 Temperature 36.9 C Temperature Source Oral Sepsis Recent Fever Within 48 Hours No Sepsis New/Unexplained Change in Mental Status No Sepsis Action Taken by Nursing No Action Required Pulse Rate 98 H Pulse Rate [Right Finger] 88 Pulse Rhythm Regular Pulse Strength Normal Respiratory Rate 20 18 18 Respiratory Effort / Characteristics Non-Labored Spontaneous Non-Labored Spontaneous Respiratory Depth Normal Normal Respiratory Pattern Regular Regular Blood Pressure 145/85 H Blood Pressure [Right Arm] 145/96 H Blood Pressure Mean 105 Blood Pressure Mean [Right Arm] 112 Pulse Oximetry 97 97 Oxygen Delivery Method Room Air Room Air Room Air GENERAL: Patient is sitting up in bed, alert, well appearing, well nourished, no distress, non-toxic EYE EXAM: normal conjunctiva. OROPHARYNX: no exudate, no erythema, lips, buccal mucosa, and tongue normal and mucous membranes are moist NECK: supple, no nuchal rigidity, no adenopathy, non-tender LUNGS: Clear to auscultation. Normal chest wall mechanics HEART: no murmurs, S1 normal and S2 normal ABDOMEN: abdomen soft, non-tender, normo-active bowel sounds, no masses, no rebound or guarding. PD in place in left mid quadrant. BACK: Back is symmetrical on inspection and there is no deformity, no midline tenderness, no CVA tenderness. SKIN: no rashes and no bruising UPPER EXTREMITIES: upper extremities are grossly normal. LOWER EXTREMITIES: No pitting edema. NEURO EXAM: Normal sensorium, cranial nerves II-XII grossly intact, normal speech, no gross weakness of arms, no gross weakness of legs. Course ED COURSE: Vital signs were reviewed and showed situational hypertensive. The patients medical record was reviewed The above diagnostic studies were performed and reviewed. ED treatments and interventions as stated above. 1601: The patient was evaluated in room B10. A complete history and physical examination was performed. 1900: Upon reevaluation, I discussed my findings with the patient who understands and agrees with the treatment plan. Based on the patients age, coexisting illnesses, exam and lab findings the decision to treat as an inpatient was made. The patient remained stable while under my care. 175: I discussed the patients case with Dr. Bishnu Sierra offline editor. 184: The nurse reported that she was able to flush the patients catheter at this time. 190: I discussed the patients case with Dr. Eddie miller. He will evaluate the patient for further management. Consultations Consultation #1: I discussed the patients case with Dr. Bishnu Sierra offline editor. Time: 17:59 Consultation #2: I discussed the patients case with Dr. Eddie miller. He will evaluate the patient for further management. Time: 19:05 Medical Decision Making Differential Diagnosis Differential diagnoses includes but is not limited to gastritis, peptic ulcer disease, GERD, gallbladder disease, pancreatitis, small bowel obstruction, acute coronary syndrome, pericarditis, ischemic bowel, irritable bowel disease, irritable bowel syndrome, appendicitis, diverticulitis, malignancy, hernia, urinary tract infection, torsion, /ectopic , perforation, trauma, infectious. Medical Records Attestation: I reviewed the patient's medical records. Home Medications Current Medication List: was personally reviewed by me Laboratory Data Attestation: I reviewed the patient's lab results. Result diagrams: 01/24/19 16:22 01/24/19 18:01 Lab Results 01/24/19 01/24/19 01/24/19 Range/Units 16:22 16:22 18:01 WBC 6.43 (4.8-10.8) K/uL RBC 4.03 L (4.2-5.4) M/uL Hgb 12.3 (12.0-16.0) g/dL Hct 38.1 (37-47) % MCV 94.5 (80-100) fL MCH 30.5 (25-34) pg MCHC 32.3 (32-36) g/dL RDW Std Deviation 60.5 H (36.4-46.3) fL RDW Coeff of Laith 17.6 H (11.5-14.5) % Plt Count 182 (130-400) K/uL MPV 9.4 (7.4-10.4) fL Immature Gran % (Auto) 0.5 % Neut % (Auto) 71.2 % Lymph % (Auto) 18.8 % [place] % (Auto) 5.4 % Eos % (Auto) 3.6 % Baso % (Auto) 0.5 % Immature Gran # (Auto) 0.03 H (0.00-0.02) K/uL Neut # (Auto) 4.58 (1.4-6.5) K/uL Lymph # (Auto) 1.21 (1.2-3.4) K/uL [place] # (Auto) 0.35 (0.11-0.59) K/uL Eos # (Auto) 0.23 (0-0.5) K/uL Baso # (Auto) 0.03 (0-0.2) K/uL Sodium 136 (136-145) mmol/L Potassium 5.5 H (3.5-5.1) mmol/L Chloride 99 (98-107) mmol/L Carbon Dioxide 26 (21-32) mmol/L Anion Gap 11.0 (3-11) BUN 57 H (7-18) mg/dl Creatinine 8.30 H* (0.6-1.2) mg/dl Est Cr Clr Drug Dosing 11.3 ml/min Est GFR ( Amer) 6.6 Est GFR (Non-Af Amer) 5.7 BUN/Creatinine Ratio 6.9 L (10-20) Glucose 129 H (70-99) mg/dl Calcium 8.4 L (8.5-10.1) mg/dl Total Bilirubin 0.4 (0.2-1) mg/dl AST 41 H (15-37) U/L ALT 36 (12-78) U/L Alkaline Phosphatase 158 H (45-117) U/L Total Protein 7.7 (6.4-8.2) gm/dl Albumin 3.3 L (3.4-5.0) gm/dl Globulin 4.4 H (2.5-4.0) gm/dl Albumin/Globulin Ratio 0.7 L (0.9-2) Lipase 306 (73-393) U/L Specimen Hemolysis Imaging Data Radiologist's Impression: Radiology results as stated below per my review and the radiologist's interpretation: XR KUB/Abdomen 1 view CLINICAL HISTORY: PD placement. isnt draining COMPARISON STUDY: 03/14/2017 FINDINGS: There is no pathologic bowel dilatation. There are surgical clips within the right upper quadrant consistent with a prior cholecystectomy. There is a peritoneal dialysis catheter coiled within the right lower pelvis. There is a 44 mm calcification projected over the right iliac crest. This is likely secondary to a prior failed renal transplant. IMPRESSION: 1. No pathologic bowel dilatation 2. Peritoneal dialysis catheter coiled within the right lower pelvis. Electronically signed by: Win Foster M.D. 01/24/2019 4:35 PM Blood Pressure Blood Pressure Findings: Elevated blood pressure Blood Pressure Disposition: further management by hospitalist RONIT Narrative Patient is a 33-year-old female presents the ER for her PD not working. She was on PD for several years and this September she was switched to HD for several months. She is supposed to flush her PD once a week and was unable to do that today. She has no other complaints with exception of mild diarrhea. Labs showed no significant leukocytosis or anemia. BMP with a hyperkalemia of 5.5. Creatinine was 8.3. No significant transaminitis or elevated bilirubin. Lipase is normal. Discussed with nephrology and we eventually got her PD catheter working with the dialysis nurse at bedside and flushing it. With her elevated potassium he preferred to watch her overnight and perform PD overnight. Patient was updated bedside. She was agreeable. Discussed with the hospitalist and patient will be observed. Impression & Plan Mechanical complication of peritoneal dialysis catheter, Hyperkalemia Discharge Plan Visit Data Chief Complaint: Referred by Doctor Stated Complaint: pd cath wont flush, refered by doctor ED Provider: Berry Alves Discharge Problem: Mechanical complication of peritoneal dialysis catheter, Hyperkalemia Patient Disposition: Being Evaluated by Hospitalist Forms Stand Alone Forms: My Pocket Prescriptions Prescriptions: No Action loratadine 10 mg tablet 10 mg PO HS PRN (Reason: Allergy Symptoms) RF: 0 gabapentin [Neurontin] 400 mg capsule 400 mg PO QAM RF: 0 cinacalcet [Sensipar] 30 mg tablet 30 mg PO PM RF: 0 amlodipine [Norvasc] 5 mg tablet 10 mg PO QAM RF: 0 acetaminophen [Tylenol Extra Strength] 500 mg Tablet 1,000 mg PO Q6H PRN (Reason: Pain) RF: 0 sumatriptan succinate [Imitrex] 50 mg tablet 50 mg PO UD PRN (Reason: Migraine Headache) RF: 0 albuterol sulfate [Ventolin HFA] 90 mcg/actuation HFA aerosol inhaler 2 puff Inhalation QID PRN (Reason: Shortness Of Breath Or Wheezing) RF: 0 sertraline [Zoloft] 50 mg tablet 50 mg PO QAM RF: 0 calcium acetate 667 mg capsule 2,668 mg PO TIDM RF: 0 calcium acetate 667 mg capsule 1,334 mg PO UD RF: 0 mirtazapine 30 mg Tablet 30 mg PO HS RF: 0 famotidine 40 mg Tablet 40 mg PO QAM RF: 0 carvedilol 3.125 mg Tablet 3.125 mg PO BID RF: 0 gabapentin [Neurontin] 400 mg capsule 800 mg PO HS RF: 0 calcium acetate 667 mg capsule 667 mg PO UD RF: 0 gabapentin 400 mg Capsule 400 mg PO .WITH LUNCH RF: 0 Referrals Referrals: Adolph Aldridge MD [Primary Care Provider] - Discharge Problem: Mechanical complication of peritoneal dialysis catheter Qualifiers: Encounter type: initial encounter Qualified Code(s): T85.691A - Other mechanical complication of intraperitoneal dialysis catheter, initial encounter The scribe's documentation has been prepared under my direction and personally reviewed by me in its entirety. I confirm that the note above accurately reflects all work, treatment, procedures, and medical decision making performed by me.
[2019-01-24] MEDS ORDERED: NITROGLYCERIN SL 0.4 MG/TAB TAB SL PRN (20:56)
[2019-01-24] MEDS ORDERED: SUMAtriptan succinate 50 MG TAB PO PRN (20:56)
[2019-01-24] MEDS ORDERED: LORATADINE 10 MG TAB PO PRN (20:56)
[2019-01-24] MEDS ORDERED: ONDANSETRON INJ 2 MG/ML 2 ML VIAL IV PRN (20:56)
[2019-01-24] MEDS ORDERED: ALBUTEROL HFA 8 GM INHALER INH PRN (20:56)
[2019-01-24] MEDS ORDERED: ACETAMINOPHEN 325 MG TAB PO PRN (20:56)
[2019-01-24] MEDS ORDERED: GABAPENTIN 400 MG CAP PO SCH (21:00)
[2019-01-24] MEDS ORDERED: MIRTAZAPINE TAB 15 MG TAB PO SCH (21:00)
[2019-01-24] MEDS ORDERED: CALCIUM ACETATE 667 MG CAP PO PRN ×2 (21:16)
[2019-01-24] MEDS: CARVEDILOL 3.125 MG TAB PO SCH (22:28)
[2019-01-24] MEDS: SENSIPAR~ORDER AWAITING ACTION SCH (22:29)
--- NOTE | 2019-01-24 23:16 | History and Physical Report ---
DATE OF ADMISSION: 01/24/2019 CHIEF COMPLAINT: Malfunction of the PD catheter. HISTORY OF PRESENT ILLNESS: This 33-year-old female with past medical history significant for hypertension, end-stage renal disease on dialysis, migraines, anemia, depression, bipolar disorder, tobacco use disorder, presents with the malfunction of the PD cath and found to have hyperkalemia. The patient since last September has been on hemodialysis as peritoneal dialysis was not working that well. There is fistula in the left arm, but says the upper part of the fistula is clotted, but lower part is working okay. She gets dialysis about 3 hours 30 minutes 3 times a week. Last Saturday they could not do the last half hour because upper part of the fistula was clotted. Plan for fistulogram when vascular surgery available. Also there is a plan to go back to peritoneal dialysis at end of this month. Patient flushes her PD catheter every week on Saturdays. Today, she tried to flush and it was not working, so she came to the ER. The labs showed potassium was 5.5, so Nephrology is contacted and dialysis team is helping to flush the PD catheter and then do peritoneal dialysis tonight. If they cannot do peritoneal dialysis tonight, then plan to do hemodialysis tomorrow. Otherwise, patient is doing okay. Denies any headache, no dizziness, no blurred vision, no earache, no runny nose, no sore throat, no difficulty swallowing. No cough, no fever, no chills. Appetite is good. No chest pain, no shortness of breath, no nausea, no abdominal pain. Normal bowel movements. No blood in the stools, no black stools. She does not make any urine and denies any swelling in the legs. She is active. She has 3 kids at home. ALLERGIES: AUGMENTIN. PAST MEDICAL HISTORY: As mentioned above. PAST SURGICAL HISTORY: AV fistula, , colonoscopy, left heart catheterization, cystoscopy with stent removal, EGDs, insertion of tunneled catheter, knee arthroscopy, laparoscopic cholecystectomy, Lasix surgery, ligation of oviduct, removal of tunneled catheter, renal biopsy, renal transplant in 2013. MEDICATIONS: The patient is on Tylenol 1000 mg p.o. q. 6 hours p.r.n., albuterol 2 puffs inhalation q.i.d. p.r.n., amlodipine 10 mg p.o. a.m., calcium acetate 4 tablets with meals 2 with snacks and 1 with sodas, Coreg 3.125 mg p.o. b.i.d., Sensipar 30 mg p.o. q.p.m., famotidine 40 mg p.o. q.a.m., gabapentin 400 mg p.o. a.m. and 1 mg p.o. with lunch and 800 mg p.o. at bedtime, loratadine 10 mg p.o. at bedtime p.r.n., mirtazapine 30 mg at bedtime, Zoloft 50 mg p.o. daily, Imitrex 50 mg p.r.n. FAMILY HISTORY: Significant for mother has diabetes, thyroid disorder. Father has depression. Sister has hypertension and thyroid disorder. Paternal grandmother has lupus. SOCIAL HISTORY: , lives with 3 kids. Smokes on average of a pack a day for last 7 years. No alcohol use. No drug use. REVIEW OF SYMPTOMS: As per HPI. Rest of review of systems negative. PHYSICAL EXAMINATION: GENERAL: The patient is of moderate build, not in acute distress. VITAL SIGNS: Temperature 36.9, pulse 88, respiratory rate 18, blood pressure 145/96, oxygen 97% room air. HEENT: No pallor, no icterus. Pupils equal, round, reactive to light. NECK: No JVD, no neck masses, no carotid bruits. CARDIOVASCULAR: S1, S2 heard, regular rate and rhythm. No murmur, no gallop. RESPIRATORY SYSTEM: Normal AP diameter. No accessory muscle use. No wheezing, no crackles. ABDOMEN: Soft, bowel sounds present. Nontender. PD catheter site, no drainage seen. EXTREMITIES: No edema, no erythema. LABS: WBC 6.4, hemoglobin 12.3, hematocrit 38.1, platelets 182. Sodium 136, potassium 5.5, chloride 99, bicarbonate 26, BUN 57, creatinine 8.3, serum glucose 129, calcium 8.4, total bilirubin 0.4, AST 41, ALT 36, alkaline phosphatase is 158, lipase 306. KUB, no pathological bowel dilatation, peritoneal dialysis catheter coil within the right lower pelvis. ASSESSMENT AND PLAN: This 33-year-old female who presents with malfunction of peritoneal dialysis catheter and was found to have hyperkalemia. 1. Hyperkalemia. The patient has endstage renal disease on hemodialysis. The patient used to be on peritoneal dialysis, but changed to hemodialysis the last September. As per the patient, is planned to go back to peritoneal dialysis at the end of this month. She has fistula in the left arm, upper part of fistula is clotted and she cannot do the complete dialysis last Saturday. She flushes the peritoneal dialysis catheter every Saturday and when she tried to flush, it was not working, so she came to the ER and labs also showed that her potassium was 5.5. The patient is asymptomatic. Nephrology is aware and dialysis team is trying to flush the peritoneal dialysis catheter and do peritoneal dialysis tonight, if not able to do, plan for hemodialysis tomorrow. We will follow the labs in a.m. Monitor in Med/Surg tele. 2. Endstage renal disease, dialysis as above. 3. Anemia of CKD. Hemoglobin 12.3. We will follow the labs. 4. Hypertension. Continue Coreg and amlodipine. We will monitor the blood pressure. 5. History of anxiety and depression. Continue Remeron and Zoloft. 6. Gastroesophageal reflux disease. Continue famotidine. 7. Diabetes, not on any medication. We will follow HbA1c levels. 8. Focal segmental glomerulosclerosis. Status post failed renal transplant. Used to be on peritoneal dialysis, currently on hemodialysis, follows with Nephrology. 9. Tobacco abuse.Needs counseling. 10. Deep venous thrombosis prophylaxis, SCDs for now. 11. Disposition: Admit to Med/Surg tele. Expect to discharge home and follow with her family doctor and Nephrology. MATTHEW
[2019-01-25 05:23] LABS: Basophils # (auto) 0.03 K/uL (0-0.2); Basophils % (auto) 0.6 %; Eosinophils # (auto) 0.18 K/uL (0-0.5); Eosinophils % (auto) 3.4 %; Hematocrit (blood only) 33.1 % (37-47); Hemoglobin 10.4 g/dL (12.0-16.0); Immature Granulocytes # (auto) 0.01 K/uL (0.00-0.02); Immature Granulocytes % (auto) 0.2 %; Lymphocytes # (auto) 1.56 K/uL (1.2-3.4); Lymphocytes % (auto) 29.5 %; Mean Corpuscular Hgb Conc 31.4 g/dL (32-36); Mean Corpuscular Volume 94.6 fL (80-100); Mean Platelet Volume 8.8 fL (7.4-10.4); Monocytes # (auto) 0.37 K/uL (0.11-0.59); Neutrophils # (auto) 3.14 K/uL (1.4-6.5); Neutrophils % (auto) 59.3 %; Platelet Count 158 K/uL (130-400); RDW Coefficient of Variation 17.4 % (11.5-14.5); RDW Standard Deviation 59.7 fL (36.4-46.3); White Blood Count 5.29 K/uL (4.8-10.8)
[2019-01-25 05:54] LABS: BUN Creatinine Ratio 7.3 (10-20); Calcium 8.2 mg/dl (8.5-10.1); Creatinine Clr Calc Pharmacy 10.2 ml/min; Est GFR (African American) 5.9; Magnesium 2.9 mg/dl (1.8-2.4)
[2019-01-25 05:58] LABS: Potassium 4.6 mmol/L (3.5-5.1)
[2019-01-25] MEDS ORDERED: CALCIUM ACETATE 667 MG CAP PO SCH (08:00)
[2019-01-25] MEDS: SENSIPAR~ORDER AWAITING ACTION SCH (08:45)
[2019-01-25] MEDS ORDERED: SERTRALINE HCL 50 MG TABLET PO SCH (09:00)
[2019-01-25] MEDS ORDERED: FAMOTIDINE 20 MG TAB PO SCH (09:00)
[2019-01-25] MEDS ORDERED: GABAPENTIN 400 MG CAP PO SCH ×2 (09:00→11:30)
[2019-01-25] MEDS ORDERED: AMLODIPINE BESYLATE 5 MG TAB PO SCH (09:00)
[2019-01-25] MEDS: CARVEDILOL 3.125 MG TAB PO SCH (09:11)
--- NOTE | 2019-01-25 10:27 | Hospitalist Progress Note ---
Date of Service January 25, 2019 Assessment & Plan (1) Hyperkalemia: Serum potassium 5.5 at time of admission. Potassium today 4.6. No need for emergent hemodialysis. (2) CKD (chronic kidney disease) stage V requiring chronic dialysis: Hyperkalemia improved. No fluid overload. No need for emergent dialysis. Hemodialysis tomorrow as outpatient. (3) Mechanical complication of peritoneal dialysis catheter: Having difficulty flushing peritoneal dialysis catheter. No signs/symptoms of peritonitis. Outpatient follow-up. (4) Discharge planning issues: Discharge to home. Family medicine follow-up with Dr. Aldridge. [facility] follow[facility] with [facility]. Subjective Recheck for hyperkalemia and other problems. Patient seen in her room around 10:00. Feels well. No fever, chest pain, shortness of breath, nausea, vomiting. Hemodialysis treatment was offered by Nephrology, but patient would like to go home this morning and receive hemodialysis tomorrow as an outpatient. Physical Exam Constitutional: no acute distress Respiratory: no respiratory distress Auscultation: lungs clear to auscultation bilaterally Cardiovascular: Rate/Rhythm: regular rate and regular rhythm Heart Sounds: no gallop and no cardiac rub Vessels: no JVD Extremities: + AV fistula (left upper extremity); no calf tenderness and no edema Gastrointestinal (Abdomen): normal bowel sounds, soft, nontender, no hepatosplenomegaly left-sided peritoneal dialysis catheter Skin: no rashes, warm and dry Psychiatric: Orientation: alert and oriented x 3 Results & Data Vital Signs (Past 12 Hours) Vital Signs Temp Pulse Pulse Resp BP Pulse Ox 01/25/19 07:37 36.5 C 80 16 152/90 H 96 01/25/19 04:00 36.5 C 76 18 145/85 H 97 01/24/19 23:20 36.9 C 83 20 161/92 H 94 01/24/19 23:17 85 Laboratory Results Laboratory Results - last 24 hr 01/25/19 01/25/19 01/25/19 05:13 05:13 05:13 WBC 5.29 RBC 3.50 L Hgb 10.4 L Hct 33.1 L MCV 94.6 MCH 29.7 MCHC 31.4 L RDW Std Deviation 59.7 H RDW Coeff of Laith 17.4 H Plt Count 158 MPV 8.8 Immature Gran % (Auto) 0.2 Neut % (Auto) 59.3 Lymph % (Auto) 29.5 [place] % (Auto) 7.0 Eos % (Auto) 3.4 Baso % (Auto) 0.6 Immature Gran # (Auto) 0.01 Neut # (Auto) 3.14 Lymph # (Auto) 1.56 [place] # (Auto) 0.37 Eos # (Auto) 0.18 Baso # (Auto) 0.03 Sodium 137 Potassium 4.6 D Chloride 99 Carbon Dioxide 27 Anion Gap 11.0 BUN 67 H Creatinine 9.21 H* D Est Cr Clr Drug Dosing 10.2 Est GFR ( Amer) 5.9 Est GFR (Non-Af Amer) 5.0 BUN/Creatinine Ratio 7.3 L Glucose 101 H Estimat Average Glucose Pending Hemoglobin A1c Pending Calcium 8.2 L Magnesium 2.9 H (1) Mechanical complication of peritoneal dialysis catheter Encounter type: initial encounter Qualified Code(s): T85.691A - Other mechanical complication of intraperitoneal dialysis catheter, initial encounter
--- NOTE | 2019-01-25 10:46 | Nephrology Consultation ---
Date of Consultation January 25, 2019 Assessment & Plan (1) ESRD (end stage renal disease) on dialysis: Patient is ESRD on dialysis Saturday. Last dialysis was on Saturday which was terminated 30 minutes before time due to fistula dysfunction. Her electrolytes stable and no signs of volume overload. No indication for dialysis today. She will continue outpatient dialysis tomorrow. Fistula needs to be evaluated by the vascular surgeon but this will be arranged as an outpatient. (2) Mechanical complication of peritoneal dialysis catheter: PD catheter is not flushing well. There was also a failed attempt to fill the abdomen. I recommend using heparin 500 units added to each liter of 1.5% dextrose and attempt filing the abdomen again. Patient is agreeable to doing this herself at home. If she continues to have problems with the filing, will have the surgeon attempt to reposition the catheter. Again this will be arranged as an outpatient. I have asked her to take laxatives and ensure daily bowel movements. (3) Hyperkalemia: K better today with dietary restriction. Patient will do dialysis tomorrow History of Present Illness Reason for Consultation: ESRD on HD and hyperkalemia Requesting Physician: Eddie Butt MD Attending Physician: Theo Bang MD History of Present Illness 32 y/o F w/ ESRD on PD admitted on 01/24/2019 with PD catheter not flushing and found to have hyperkalemia of 5.5. Have been asked to evaluate her for PD catheter dysfunction and ESRD with hyperkalemia. 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 She was on peritoneal dialysis routinely at [facility] but this was stopped and patient now on HD using a left upper arm AV fistula for the past 2 months. She is dialyzed on a Saturday schedule and last dialysis was on Saturday. Her Saturday dialysis was stopped 30 minutes before time due to AV fistula dysfunction. She has had problems with the AV fistula and is planned for fistulogram when Dr. Claudio comes back. This morning she feels well denies any shortness of breath, lower extremity swelling or pain. She denied abdominal pain. No vomiting or diarrhea. Last night the peritoneal dialysis nurse attempted flushing the catheter but was still having problems with filling. Patient reports having bowel movements daily. Allergies Allergy/AdvReac Type Severity Reaction Status Date / Time cefaclor Allergy Intermediate Rash Verified 01/19/19 14:55 amoxicillin AdvReac Mild VOMITING Verified 01/19/19 14:55 clavulanic acid AdvReac Mild VOMITING Verified 01/19/19 14:55 Home Medications Home Medications Medication Instructions Recorded Confirmed Type albuterol sulfate [Ventolin HFA] 2 puff INHALATION QID PRN 05/30/18 01/24/19 History calcium acetate 1,334 mg PO UD 05/30/18 01/24/19 History calcium acetate 2,668 mg PO TIDM 05/30/18 01/24/19 History sertraline [Zoloft] 50 mg PO QAM 05/30/18 01/24/19 History sumatriptan succinate [Imitrex] 50 mg PO UD PRN 05/30/18 01/24/19 History loratadine 10 mg PO HS PRN 07/30/18 01/24/19 History carvedilol 3.125 mg PO BID 10/08/18 01/24/19 History famotidine 40 mg PO QAM 10/08/18 01/24/19 History mirtazapine 30 mg PO HS 10/08/18 01/24/19 History amlodipine [Norvasc] 10 mg PO QAM 11/03/18 01/24/19 History cinacalcet [Sensipar] 30 mg PO PM 11/03/18 01/24/19 History gabapentin [Neurontin] 400 mg PO QAM 11/03/18 01/24/19 History gabapentin [Neurontin] 800 mg PO HS 11/26/18 01/24/19 History acetaminophen [Tylenol Extra 1,000 mg PO Q6H PRN 12/04/18 01/24/19 History Strength] calcium acetate 667 mg PO UD 01/24/19 01/24/19 History gabapentin 400 mg PO .WITH LUNCH 01/24/19 01/24/19 History Patient History Medical History Fistula of artery (Chronic) Diastolic CHF (Chronic) "echo 04/18/17 - EF 60-65%, grade II diastolic dysfunction" FSGS (focal segmental glomerulosclerosis) (Chronic) DM2 (diabetes mellitus, type 2) (Chronic) HTN (hypertension) (Chronic) CKD (chronic kidney disease) stage V requiring chronic dialysis (Chronic) Peritoneal dialysis catheter in place (Chronic) Dependence on peritoneal dialysis (Acute) Surgical History H/O knee surgery (Resolved) H/O: (Resolved) H/O tubal ligation (Resolved) H/O eye surgery (Resolved) H/O section (Resolved) History of cholecystectomy (Resolved) H/O hernia repair (Resolved) Family History Grandmother Hx of CABG Mother Diabetes Father Crohn's disease Other No pertinent family history Social History Preferred Language: Polish Communication Ability: Effective Administrative Resources Associate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 Beliefs That Will Affect Care: None Current Living Situation: Family and Significant Other Current Living Situation Comment: [facility] Feels Safe at Home: Yes Safety Concerns: Feels Safe At This Time Smoking Status: Current every day smoker Tobacco Type: cigarettes Cigarettes Per Day: 10 Do You Dip or Chew Tobacco: No Second Hand Exposure: No Tobacco Cessation Education Requested by Patient: No Hx Alcohol Use: Yes (1 drink/year) Hx Substance Use: No Review of Systems Review of Systems: All systems reviewed & are unremarkable except as noted in HPI & below Physical Exam Physical Exam: General exam: Appears comfortable, no acute distress HEENT: Pupils are equal and reactive to light Neck: No JVD, neck is supple trachea is midline Respiratory system: Clear breath sounds bilaterally. Gastrointestinal: Abdomen is soft, non distended, non tender, bowel sounds are present. PD catheter present looks clean CVS: Regular rate and rhythm. No murmurs, rubs or gallops Musculoskeletal: No joint or muscle tenderness Extremities: Non tender, no edema, peripheral pulses are present Neuro: Oriented, no tremors, no focal neurological deficits Skin: No rashes Access: Left upper arm AV fistula with thrill and bruit although midportion feels a little hard. Results & Data Vital Signs (Past 12 Hours) Vital Signs Temp Pulse Pulse Resp BP Pulse Ox 01/25/19 07:37 36.5 C 80 16 152/90 H 96 01/25/19 04:00 36.5 C 76 18 145/85 H 97 01/24/19 23:20 36.9 C 83 20 161/92 H 94 01/24/19 23:17 85 Laboratory Results Laboratory Results - last 24 hr 01/24/19 01/24/19 01/24/19 16:22 16:22 18:01 WBC 6.43 RBC 4.03 L Hgb 12.3 Hct 38.1 MCV 94.5 MCH 30.5 MCHC 32.3 RDW Std Deviation 60.5 H RDW Coeff of Laith 17.6 H Plt Count 182 MPV 9.4 Immature Gran % (Auto) 0.5 Neut % (Auto) 71.2 Lymph % (Auto) 18.8 [place] % (Auto) 5.4 Eos % (Auto) 3.6 Baso % (Auto) 0.5 Immature Gran # (Auto) 0.03 H Neut # (Auto) 4.58 Lymph # (Auto) 1.21 [place] # (Auto) 0.35 Eos # (Auto) 0.23 Baso # (Auto) 0.03 Sodium 136 Potassium 5.5 H Chloride 99 Carbon Dioxide 26 Anion Gap 11.0 BUN 57 H Creatinine 8.30 H* Est Cr Clr Drug Dosing 11.3 Est GFR ( Amer) 6.6 Est GFR (Non-Af Amer) 5.7 BUN/Creatinine Ratio 6.9 L Glucose 129 H Estimat Average Glucose Hemoglobin A1c Calcium 8.4 L Magnesium Total Bilirubin 0.4 AST 41 H ALT 36 Alkaline Phosphatase 158 H Total Protein 7.7 Albumin 3.3 L Globulin 4.4 H Albumin/Globulin Ratio 0.7 L Lipase 306 Specimen Hemolysis 01/25/19 01/25/19 01/25/19 05:13 05:13 05:13 WBC 5.29 RBC 3.50 L Hgb 10.4 L Hct 33.1 L MCV 94.6 MCH 29.7 MCHC 31.4 L RDW Std Deviation 59.7 H RDW Coeff of Laith 17.4 H Plt Count 158 MPV 8.8 Immature Gran % (Auto) 0.2 Neut % (Auto) 59.3 Lymph % (Auto) 29.5 [place] % (Auto) 7.0 Eos % (Auto) 3.4 Baso % (Auto) 0.6 Immature Gran # (Auto) 0.01 Neut # (Auto) 3.14 Lymph # (Auto) 1.56 [place] # (Auto) 0.37 Eos # (Auto) 0.18 Baso # (Auto) 0.03 Sodium 137 Potassium 4.6 D Chloride 99 Carbon Dioxide 27 Anion Gap 11.0 BUN 67 H Creatinine 9.21 H* D Est Cr Clr Drug Dosing 10.2 Est GFR ( Amer) 5.9 Est GFR (Non-Af Amer) 5.0 BUN/Creatinine Ratio 7.3 L Glucose 101 H Estimat Average Glucose Pending Hemoglobin A1c Pending Calcium 8.2 L Magnesium 2.9 H Total Bilirubin AST ALT Alkaline Phosphatase Total Protein Albumin Globulin Albumin/Globulin Ratio Lipase Specimen Hemolysis (1) Mechanical complication of peritoneal dialysis catheter Encounter type: initial encounter Qualified Code(s): T85.691A - Other mechanical complication of intraperitoneal dialysis catheter, initial encounter
--- NOTE | 2019-01-25 22:57 | Discharge Summary ---
Date of Service Date of Admission: 01/24/19 Date of Discharge: 01/25/19 Admission HPI Per Admitting Provider This 33-year-old female with past medical history significant for hypertension, end-stage renal disease on dialysis, migraines, anemia, depression, bipolar disorder, tobacco use disorder, presents with the malfunction of the PD cath and found to have hyperkalemia. The patient since last September has been on hemodialysis as peritoneal dialysis was not working that well. There is fistula in the left arm, but says the upper part of the fistula is clotted, but lower part is working okay. She gets dialysis about 3 hours 30 minutes 3 times a week. Last Saturday they could not do the last half hour because upper part of the fistula was clotted. Plan for fistulogram when vascular surgery available. Also there is a plan to go back to peritoneal dialysis at end of this month. Patient flushes her PD catheter every week on Saturdays. Today, she tried to flush and it was not working, so she came to the ER. The labs showed potassium was 5.5, so Nephrology is contacted and dialysis team is helping to flush the PD catheter and then do peritoneal dialysis tonight. If they cannot do peritoneal dialysis tonight, then plan to do hemodialysis tomorrow. Otherwise, patient is doing okay. Denies any headache, no dizziness, no blurred vision, no earache, no runny nose, no sore throat, no difficulty swallowing. No cough, no fever, no chills. Appetite is good. No chest pain, no shortness of breath, no nausea, no abdominal pain. Normal bowel movements. No blood in the stools, no black stools. She does not make any urine and denies any swelling in the legs. She is active. She has 3 kids at home. Admission Exam Per Admitting Provider GENERAL: The patient is of moderate build, not in acute distress. VITAL SIGNS: Temperature 36.9, pulse 88, respiratory rate 18, blood pressure 145/96, oxygen 97% room air. HEENT: No pallor, no icterus. Pupils equal, round, reactive to light. NECK: No JVD, no neck masses, no carotid bruits. CARDIOVASCULAR: S1, S2 heard, regular rate and rhythm. No murmur, no gallop. RESPIRATORY SYSTEM: Normal AP diameter. No accessory muscle use. No wheezing, no crackles. ABDOMEN: Soft, bowel sounds present. Nontender. PD catheter site, no drainage seen. EXTREMITIES: No edema, no erythema. Principal Diagnosis hyperkalemia CKD V on hemodialysis Discharge Data Allergies Allergy/AdvReac Type Severity Reaction Status Date / Time cefaclor Allergy Intermediate Rash Verified 01/19/19 14:55 amoxicillin AdvReac Mild VOMITING Verified 01/19/19 14:55 clavulanic acid AdvReac Mild VOMITING Verified 01/19/19 14:55 Consultations 01/24/19 19:09 ED Decision to Admit Stat 01/25/19 08:00 Consult Nephrology Routine Hospital Course (1) Hyperkalemia: Serum potassium 5.5 at time of admission. Potassium today 4.6. No need for emergent hemodialysis. (2) CKD (chronic kidney disease) stage V requiring chronic dialysis: Hyperkalemia improved. No fluid overload. No need for emergent dialysis. Hemodialysis tomorrow as outpatient. (3) Mechanical complication of peritoneal dialysis catheter: Having difficulty flushing peritoneal dialysis catheter. No signs/symptoms of peritonitis. Outpatient follow-up. (4) Discharge planning issues: Discharge to home. Family medicine follow-up with Dr. Aldridge. Renal follow-up with [facility]. Total Time Total Time Spent Total Time Spent (In Minutes): 25 Discharge Plan Discharge Items Patient Disposition: Home - Self-Care Reason For Visit: PD CATH NOT FLUSHING Discharge Diagnosis: PD catheter not flushing high potassium level- improved Condition: Good Discharge Goals: Improve disease control Activity: Resume your previous activity Non-emergency contact: Primary Care Provider, Hospitalist and Machine Tender Call non-emergency contact if: you have any medication questions and your symptoms worsen Follow-up/Referrals: Adolph Aldridge MD [Primary Care Provider] - Michael Claudio MD [Physician] - Pato Saucedo MD [Physician] - Diet: Carb Consistent or DM2 and Dialysis Renal Addtl Provider Instructions: Hemodialysis as scheduled. Seek medical attention if you have: * temperature above 101 * chest pain or trouble breathing * abdominal pain, nausea, vomiting * diarrhea, dark stools or bloody stools * any unanswered questions or concerns Call 911 if symptoms are severe. Call if you have any questions or problems. My cell # is [phone]. You can also reach a [facility] hospitalist on duty at [facility] 24 hours a day by calling [phone]. Prescriptions: Continued loratadine 10 mg tablet 10 mg PO HS PRN (Reason: Allergy Symptoms) RF: 0 gabapentin [Neurontin] 400 mg capsule 400 mg PO QAM RF: 0 cinacalcet [Sensipar] 30 mg tablet 30 mg PO PM RF: 0 amlodipine [Norvasc] 5 mg tablet 10 mg PO QAM RF: 0 acetaminophen [Tylenol Extra Strength] 500 mg Tablet 1,000 mg PO Q6H PRN (Reason: Pain) RF: 0 sumatriptan succinate [Imitrex] 50 mg tablet 50 mg PO UD PRN (Reason: Migraine Headache) RF: 0 albuterol sulfate [Ventolin HFA] 90 mcg/actuation HFA aerosol inhaler 2 puff Inhalation QID PRN (Reason: Shortness Of Breath Or Wheezing) RF: 0 sertraline [Zoloft] 50 mg tablet 50 mg PO QAM RF: 0 calcium acetate 667 mg capsule 2,668 mg PO TIDM RF: 0 calcium acetate 667 mg capsule 1,334 mg PO UD RF: 0 mirtazapine 30 mg Tablet 30 mg PO HS RF: 0 famotidine 40 mg Tablet 40 mg PO QAM RF: 0 carvedilol 3.125 mg Tablet 3.125 mg PO BID RF: 0 gabapentin [Neurontin] 400 mg capsule 800 mg PO HS RF: 0 calcium acetate 667 mg capsule 667 mg PO UD RF: 0 gabapentin 400 mg Capsule 400 mg PO .WITH LUNCH RF: 0 Stand-Alone Forms: My [facility] Discharge Orders: Discharge Order (Routine); Ordered 01/25/19 Ordered By: Theo Bang Admission Data Admit Date/Time: 01/24/19 19:40 Attending Provider: Theo Bang Admit Provider: Daquan Morgan Primary Care Provider: Adolph Aldridge Other Providers: Daquan Morgan ; Leah Nieves ; Jameel Wilson Kerim I ; Caro Malik ; Cornelia Siegel ; Pato Saucedo Service: Telemetry Other Interventions: Discharge Summary Assessment (RN) Last Done: 01/25/19 10:57 DC Date/Time DO NOT enter until pt leaves facility: 01/25/19 12:22
[2019-01-26 06:20] LABS: Estimated Average Glucose 117 mg/dl; Hemoglobin A1C 5.7 % (4.5-5.6)
== END 2019-01-25 12:22 | disposition home or self-care (01) | DRG 640 ==
LOC: ED 15:42 → 2W 19:40

== ENCOUNTER 2019-04-21 15:53 | Inpatient (IN) ==
[2019-04-21] MEDS ORDERED: ACETAMINOPHEN 325 MG TAB PO STA (16:26)
[2019-04-21] MEDS ORDERED: TRAMADOL HCL 50 MG TABLET PO STA (16:26)
--- NOTE | 2019-04-21 16:41 | XRay Report ---
XR chest 1V portable CLINICAL HISTORY: Chest Pain dyspnea COMPARISON STUDY: 11/26/2018 FINDINGS: Moderate cardiomegaly. Diaphragms are smooth. Lungs are clear. IMPRESSION: Moderate cardiomegaly. Otherwise negative study. The above report was generated using voice recognition software. It may contain grammatical, syntax or spelling errors. Electronically signed by: Adolph Rizo M.D. 04/21/2019 4:40 PM
[2019-04-21 16:42] LABS: Basophils # (auto) 0.02 K/uL (0-0.2); Basophils % (auto) 0.2 %; Eosinophils # (auto) 0.63 K/uL (0-0.5); Eosinophils % (auto) 7.4 %; Hematocrit (blood only) 24.1 % (37-47); Immature Granulocytes # (auto) 0.02 K/uL (0.00-0.02); Immature Granulocytes % (auto) 0.2 %; Lymphocytes # (auto) 1.28 K/uL (1.2-3.4); Lymphocytes % (auto) 15.1 %; Mean Corpuscular Hemoglobin 31.6 pg (25-34); Mean Corpuscular Hgb Conc 33.2 g/dL (32-36); Mean Corpuscular Volume 95.3 fL (80-100); Mean Platelet Volume 8.6 fL (7.4-10.4); Monocytes # (auto) 0.38 K/uL (0.11-0.59); Monocytes % (auto) 4.5 %; Neutrophils # (auto) 6.13 K/uL (1.4-6.5); Neutrophils % (auto) 72.6 %; Platelet Count 148 K/uL (130-400); RDW Coefficient of Variation 14.8 % (11.5-14.5); RDW Standard Deviation 50.1 fL (36.4-46.3); Red Blood Count 2.53 M/uL (4.2-5.4); White Blood Count 8.46 K/uL (4.8-10.8)
[2019-04-21 17:13] LABS: Albumin Globulin Ratio 0.7 (0.9-2); Albumin Level 2.7 gm/dl (3.4-5.0); BUN Creatinine Ratio 4.2 (10-20); Bilirubin,Total 0.3 mg/dl (0.2-1); Calcium 7.7 mg/dl (8.5-10.1); Creatinine Clr Calc Pharmacy 7.2 ml/min; Est GFR (African American) 3.7; Est GFR (Non-African American) 3.2; Globulin 4.1 gm/dl (2.5-4.0); Potassium 3.3 mmol/L (3.5-5.1); Total Protein 6.8 gm/dl (6.4-8.2); Troponin I 0.438 ng/ml (0-0.045)
[2019-04-21] MEDS ORDERED: NITROGLYCERIN SL 0.4 MG/TAB TAB SL STA (17:17)
--- NOTE | 2019-04-21 17:48 | History & Physical Report ---
Date of Service April 21, 2019 Assessment & Plan (1) Atypical chest pain: (2) Elevated troponin: This is a 33yo F with a PMH of ESRD s/p failed renal transplant 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 Nieves, depression with anxiety, migraine, diet-controlled type 2 diabetes mellitus, chronic anemia and history of atypical chest pain who presents with intermittent chest pain x 5 days. -Intermittent CP central with left radiation lasting 20 minutes- 1 day -Cardiology has evaluated patient in the past and felt CP was not angina, however troponin elevated at 0.438 (baseline trop ~ 0.09) -EKG with prolonged QTc of 571. No other acute ischemic changes. CXR with moderate cardiomegaly. Otherwise negative study -Most recent 2D echo from Jul 2018 with mild conc. LVH, EF: 50-55%, borderline global hypokinesis of left ventricle, mild MR -Trend troponin, 2D echo ordered. Consider cardiology consult if troponin increases, EKG changes or symptoms persist (3) ESRD (end stage renal disease) on dialysis: (4) Peritoneal dialysis catheter in place: S/p failed kidney transplant, follows closely with Dr. Nieves -Reports compliance with PD for the past 4 days -No abdominal pain or erythema/drainage of PD site -Continue calcium acetate, Sensipar, recently prescribed Renvela by nephro but has not started yet due to financial issues -Dialysis nurse not in house --nephro consult for PD vs HD tomorrow -Per Dr. Nieves, please call if any issues arise overnight (5) Prolonged QT interval: QTc of 571, prolonged at baseline -Monitor on telemetry -Avoid QT prolonging medications (6) HTN (hypertension): Slightly elevated at 154/78 -Continue home amlodipine, add PRN beta blockers if needed (7) Depression: Continue Zoloft DVT Ppx: SCDs for now Code status: FULL PCP: Luis Carlos Dispo: Observation telemetry. Plan to return home once medically stable. Patient seen in collaboration with Dr. Lutz. Please see addendum. History of Present Illness Chief Complaint: chest pain Primary Care Provider: Adolph Aldridge MD This is a 33yo F with a PMH of ESRD s/p failed renal transplant 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 Nieves, depression with anxiety, migraine, diet-controlled type 2 diabetes mellitus, chronic anemia and history of atypical chest pain who presents with intermittent chest pain x 5 days. Describes chest pain as centrally located with radiation to left side described as 7/10, sharp and stabbing pain. No radiation to jaw or down left arm. Episodes last between 20 minutes and all day. Exacerbated with movement and less severe with rest. Took tylenol at home without relief. Received ntg spray x 2 en route without relief. Pain improved from 10/10 to 7/10 after being given tramadol and tylenol in the ED. Also developed headache and dizziness since today. Denies fever, chills, shortness of breath, nausea, vomiting or abdominal pain. Endorses chronic diarrhea. Does not make urine. States that she has been compliant with PD for the past 4 evenings and brought her sheet with her. Denies pain around PD cath side or erythema/drainage. In ED, found to be afebrile. BP 162/101. Troponin elevated at 0.438 (baseline trop ~ 0.09). EKG with prolonged qtc of 571. No other acute ischemic changes. CXR with moderate cardiomegaly. Otherwise negative study. Most recent 2D echo from Jul 2018 with mild conc. LVH, EF: 50-55%, borderline hypokinesis of left ventricle. Allergies Allergy/AdvReac Type Severity Reaction Status Date / Time cefaclor Allergy Intermediate Rash Verified 04/21/19 17:25 amoxicillin AdvReac Mild VOMITING Verified 04/21/19 17:25 clavulanic acid AdvReac Mild VOMITING Verified 04/21/19 17:25 Home Medications Home Medications Medication Instructions Recorded Confirmed Type albuterol sulfate [Ventolin HFA] 2 puff INHALATION QID PRN 05/30/18 04/21/19 History calcium acetate 2,668 mg PO DIRECTED 05/30/18 04/21/19 History calcium acetate 3,335 mg PO TIDM 05/30/18 04/21/19 History sertraline [Zoloft] 50 mg PO QAM 05/30/18 04/21/19 History sumatriptan succinate [Imitrex] 50 mg PO DIRECTED PRN MDD 100 05/30/18 04/21/19 History MG/24 HOURS loratadine 10 mg PO HS PRN 07/30/18 04/21/19 History mirtazapine 30 mg PO HS 10/08/18 04/21/19 History amlodipine [Norvasc] 10 mg PO QAM 11/03/18 04/21/19 History cinacalcet [Sensipar] 30 mg PO QPM 11/03/18 04/21/19 History gabapentin [Neurontin] 400 mg PO QAM 11/03/18 04/21/19 History gabapentin [Neurontin] 800 mg PO HS 11/26/18 04/21/19 History acetaminophen [Tylenol Extra 1,000 mg PO Q6H PRN 12/04/18 04/21/19 History Strength] calcium acetate 1,334 mg PO DIRECTED 01/24/19 04/21/19 History gabapentin 400 mg PO QDL 01/24/19 04/21/19 History carvedilol 6.25 mg PO BID 04/21/19 04/21/19 History famotidine [Pepcid] 40 mg PO DAILY 04/21/19 04/21/19 History sevelamer carbonate 1,600 mg PO TIDM 04/21/19 04/21/19 History Past Med/Surg History Medical History Fistula of artery (Chronic) Diastolic CHF (Chronic) "echo 04/18/17 - EF 60-65%, grade II diastolic dysfunction" FSGS (focal segmental glomerulosclerosis) (Chronic) DM2 (diabetes mellitus, type 2) (Chronic) HTN (hypertension) (Chronic) CKD (chronic kidney disease) stage V requiring chronic dialysis (Chronic) Peritoneal dialysis catheter in place (Chronic) Dependence on peritoneal dialysis (Acute) Depression (Chronic) Surgical History H/O knee surgery (Resolved) H/O: (Resolved) H/O tubal ligation (Resolved) H/O eye surgery (Resolved) H/O section (Resolved) History of cholecystectomy (Resolved) H/O hernia repair (Resolved) Family History Grandmother Hx of CABG Mother Diabetes Father Crohn's disease Social History Preferred Language: Lao Communication Ability: Effective Support Service Tech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 Beliefs That Will Affect Care: None Current Living Situation: Family and Significant Other Current Living Situation Comment: [facility] Other Information That Helps Us Care for You: No Feels Safe at Home: Yes Safety Concerns: Feels Safe At This Time Smoking Status: Current every day smoker Tobacco Type: cigarettes ; Cigarettes Per Day: 10 ; Do You Dip or Chew Tobacco: No ; Second Hand Exposure: No ; Tobacco Cessation Education Requested by Patient: No Hx Alcohol Use: Yes Hx Substance Use: No Review of Systems Review of Systems: At least ten systems reviewed and negative except as noted in the HPI. Physical Exam Physical Exam: General Appearance: WD/WN, no apparent distress, resting comfortably Head: normocephalic, atraumatic Eyes: normal inspection, PERRL, EOMI ENT: hearing grossly normal, pharynx normal (moist mucous membranes) Neck: supple, no JVD, no adenopathy Respiratory/Chest: chest wall non-tender. Lungs clear to auscultation. No wheezes, rales or rhonchi. No respiratory distress or accessory muscle use Cardiovascular: regular rate, rhythm, no murmur, normal peripheral pulses, no BLE edema Abdomen/GI: normal bowel sounds, soft, non-tender to palpation, PD site at LLQ without erythema/drainage Extremities/Musculoskelatal: normal inspection, no calf tenderness, normal capillary refill, no pedal edema Neurologic/Psych: alert, normal mood/affect, oriented x 3 Skin: normal color, warm/dry Results & Data Vital Signs (Past 12 Hours) Vital Signs Temp Pulse Resp BP Pulse Ox 04/21/19 16:10 86 17 100 04/21/19 16:06 36.9 C 83 20 162/101 H 99 04/21/19 16:05 91 H 13 100 04/21/19 16:02 86 20 162/101 H Laboratory Results Short CBC 04/21/19 04/21/19 Range/Units 16:24 16:24 WBC 8.46 (4.8-10.8) K/uL Hgb 8.0 L (12.0-16.0) g/dL Hct 24.1 L (37-47) % Plt Count 148 (130-400) K/uL Troponin I 0.438 H* (0-0.045) ng/ml BMP 04/21/19 16:24 Sodium 139 Potassium 3.3 L Chloride 99 Carbon Dioxide 28 BUN 55 H Creatinine 13.50 H* Glucose 99 Calcium 7.7 L Cardiac Enzymes 04/21/19 Range/Units 16:24 Troponin I 0.438 H* (0-0.045) ng/ml Liver Function 04/21/19 Range/Units 16:24 Total Bilirubin 0.3 (0.2-1) mg/dl AST 15 (15-37) U/L ALT 20 (12-78) U/L Alkaline Phosphatase 116 (45-117) U/L Albumin 2.7 L (3.4-5.0) gm/dl Diagnostic Findings CXR: IMPRESSION: Moderate cardiomegaly. Otherwise negative study. ECG Rhythm: normal sinus Findings: + prolonged QT Supervising Physician Co-Signing Physician Notes Pt was seen and examined. Agreed with Jackie BOND exam, assessment and plan. 33yo F with a PMH of ESRD s/p failed renal transplant on peritoneal dialysis due to FSGS, depression, anxiety, migraine, diet-controlled type 2 diabetes mellitus, chronic anemia, GERD and history of atypical chest pain presents to the ER with intermittent chest pain for the last few days. Pt said that pain comes and go. Described it as 7 out 10, located in the midsternal area, radiating to left shoulder. She said that nothing makes it worst. She said that pain improves after receiving tramadol but only last for about 90 minutes. She said that has been adding pepper in her food. She said that she just ate food and pain did not get worst. EKG done in the ER showed no ischemic finding. Initial troponin mildly elevated with Hgb 8. Will monitor in tele. Will trend troponin. will repeat EKG in am. Will get an ECHO. If troponin trending up, will consult cardiology. Will continue monitor closely. MD Nelda (1) Depression Depression Type: unspecified Qualified Code(s): F32.9 - Major depressive disorder, single episode, unspecified (2) HTN (hypertension) Hypertension type: essential hypertension Qualified Code(s): I10 - Essential (primary) hypertension
--- NOTE | 2019-04-21 18:08 | Emergency Department Note ---
Entered by Leyla Mccarthy acting as a scribe for Karan Santiago MD History of Present Illness General Chief complaint: Chest Pain Stated complaint: CHEST PAIN Time Seen by Provider: 04/21/19 15:59 Source: patient History of Present Illness Provider complaint: chest pain Onset (ago): day(s) 5 Location: chest Radiation: other (left) Pain Consistency: + constant and + intermittent Relieved By: + none Exacerbated By: + movement Associated symptoms: + other (-leg swelling, -arm pain); no cough, no fever/chills and no nausea/vomiting The patient is a 33 year old female w/ PMHx CKD, anemia, diabetes mellitus, HTN, kidney transplant, CHF, and end of stage renal disease who pre sents to the ED w/ CC of chest pain beginning 5 days ago. The patient reports that she has had intermittent chest pain for the past 5 days. She notes that she woke up at 1200 today and her pain has been constant since. The patient states that nothing alleviates her pain, but movement worsens her chest pain. The patient states that the pain is located in the center of her chest and radiates to her left side. She denies any arm pain, nausea, vomiting, cough, fever, chills, or leg swelling. The patient mentions that she takes Heparin. She reports that she smokes, but denies any alcohol use. Per the EMS, the patient was given nitroglycerine on the way to the ED. Per the ED notes, the patient had an echocardiogram done on 08/09/18 which showed mild LVH low normal systolic function, EF 50-55%, borderline global hypokinesis, and mild MR. Home Medications Home Medications Medication Instructions Recorded Confirmed Type albuterol sulfate [Ventolin HFA] 2 puff INHALATION QID PRN 05/30/18 04/21/19 History calcium acetate 2,668 mg PO DIRECTED 05/30/18 04/21/19 History calcium acetate 3,335 mg PO TIDM 05/30/18 04/21/19 History sertraline [Zoloft] 50 mg PO QAM 05/30/18 04/21/19 History sumatriptan succinate [Imitrex] 50 mg PO DIRECTED PRN MDD 100 05/30/18 04/21/19 History MG/24 HOURS loratadine 10 mg PO HS PRN 07/30/18 04/21/19 History mirtazapine 30 mg PO HS 10/08/18 04/21/19 History amlodipine [Norvasc] 10 mg PO QAM 11/03/18 04/21/19 History cinacalcet [Sensipar] 30 mg PO QPM 11/03/18 04/21/19 History gabapentin [Neurontin] 400 mg PO QAM 11/03/18 04/21/19 History gabapentin [Neurontin] 800 mg PO HS 11/26/18 04/21/19 History acetaminophen [Tylenol Extra 1,000 mg PO Q6H PRN 12/04/18 04/21/19 History Strength] calcium acetate 1,334 mg PO DIRECTED 01/24/19 04/21/19 History gabapentin 400 mg PO QDL 01/24/19 04/21/19 History carvedilol 6.25 mg PO BID 04/21/19 04/21/19 History sevelamer carbonate 1,600 mg PO TIDM 04/21/19 04/21/19 History Allergies Allergy/AdvReac Type Severity Reaction Status Date / Time cefaclor Allergy Intermediate Rash Verified 04/21/19 17:25 amoxicillin AdvReac Mild VOMITING Verified 04/21/19 17:25 clavulanic acid AdvReac Mild VOMITING Verified 04/21/19 17:25 Past Med/Surg History Medical History Fistula of artery (Chronic) Diastolic CHF (Chronic) "echo 04/18/17 - EF 60-65%, grade II diastolic dysfunction" FSGS (focal segmental glomerulosclerosis) (Chronic) DM2 (diabetes mellitus, type 2) (Chronic) HTN (hypertension) (Chronic) CKD (chronic kidney disease) stage V requiring chronic dialysis (Chronic) Peritoneal dialysis catheter in place (Chronic) Dependence on peritoneal dialysis (Acute) Surgical History H/O knee surgery (Resolved) H/O: (Resolved) H/O tubal ligation (Resolved) H/O eye surgery (Resolved) H/O section (Resolved) History of cholecystectomy (Resolved) H/O hernia repair (Resolved) Family History Grandmother Hx of CABG Mother Diabetes Father Crohn's disease Other No pertinent family history Social History Preferred Language: Polish Communication Ability: Effective Manager Respiratory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 Beliefs That Will Affect Care: None Current Living Situation: Family and Significant Other Current Living Situation Comment: [facility] Feels Safe at Home: Yes Smoking Status: Current every day smoker Tobacco Type: cigarettes ; Cigarettes Per Day: 10 ; Second Hand Exposure: No ; Hx Alcohol Use: Yes (1 drink/year) Hx Substance Use: No Review of Systems See HPI for pertinent positives & negatives. and A total of 10 systems reviewed and were otherwise negative Physical Exam Vital Signs Vital Signs - 24 hr 04/21/19 16:02 04/21/19 16:05 04/21/19 16:06 Temperature 36.9 C Temperature Source Oral Sepsis Recent Fever Within 48 Hours No Sepsis Action Taken by Nursing No Action Required Pulse Rate 86 91 H 83 Pulse Rate from SpO2 Sensor 87 85 Respiratory Rate 20 13 20 Respiratory Effort / Characteristics Non-Labored Spontaneous Respiratory Depth Normal Respiratory Pattern Regular Blood Pressure 162/101 H 162/101 H Blood Pressure Mean 121 121 Pulse Oximetry 100 99 Oxygen Delivery Method Room Air Room Air 04/21/19 16:10 Temperature Temperature Source Sepsis Recent Fever Within 48 Hours Sepsis Action Taken by Nursing Pulse Rate 86 Pulse Rate from SpO2 Sensor 86 Respiratory Rate 17 Respiratory Effort / Characteristics Respiratory Depth Respiratory Pattern Blood Pressure Blood Pressure Mean Pulse Oximetry 100 Oxygen Delivery Method GENERAL: Well appearing, well nourished, NAD, non-toxic. EYE EXAM: Normal conjunctiva. PERRL, no anisocoria and EOM's grossly intact w/o pain. OROPHARYNX: Moist mucous membranes. Grossly normal dentition. NECK: Supple, no nuchal rigidity, no adenopathy, non-tender. No signs of men ingismus. LUNGS: Clear to auscultation. Normal chest wall mechanics. HEART: NSR, no MRG. ABDOMEN: Abdomen soft, non-tender, normo-active bowel sounds, no masses, no rebound or guarding. PD catheter in left lower quadrant, site is clean, dry, and intact. BACK: No CVA TTP. SKIN: No rashes and no bruising. UPPER EXTREMITIES: Upper extremities are grossly normal. LOWER EXTREMITIES: No pitting edema. No calf pain. Negative Graham's sign. NEURO EXAM: A&O x3, cranial nerves II-XII grossly intact, normal speech, moves all 4 extremities on command w/o issue. Course 1608: The patient was evaluated in room B6, and a complete history and physical examination were performed. 1730: I discussed the patient's case with Jackie Sierra PA-C, [facility] [place] [facility] for further evaluation. The patient has a heart score of 6. Consultations Consultation #1: Jackie Sierra [facility] Time: 17:30 Administered Medications Discontinued Medications Acetaminophen (Tylenol) 650 mg PO NOW STA Stop: 04/21/19 16:27 Last Admin: 04/21/19 16:43 Dose: Not Given Documented by: [id number] Nitroglycerin (Nitrostat) 0.4 mg SL NOW STA Stop: 04/21/19 17:18 Last Admin: 04/21/19 17:25 Dose: 0.4 mg Documented by: [id number] Tramadol HCl (Ultram) 50 mg PO NOW STA Stop: 04/21/19 16:27 Last Admin: 04/21/19 16:43 Dose: 50 mg Documented by: [id number] Medical Decision Making Medical Records Attestation: I reviewed the patient's medical records. Home Medications Current Medication List: was personally reviewed by me Laboratory Data Attestation: I reviewed the patient's lab results. Result diagrams: 04/21/19 16:24 04/21/19 16:24 Lab Results 04/21/19 04/21/19 Range/Units 16:24 16:24 WBC 8.46 (4.8-10.8) K/uL RBC 2.53 L (4.2-5.4) M/uL Hgb 8.0 L (12.0-16.0) g/dL Hct 24.1 L (37-47) % MCV 95.3 (80-100) fL MCH 31.6 (25-34) pg MCHC 33.2 (32-36) g/dL RDW Std Deviation 50.1 H (36.4-46.3) fL RDW Coeff of Laith 14.8 H (11.5-14.5) % Plt Count 148 (130-400) K/uL MPV 8.6 (7.4-10.4) fL Immature Gran % (Auto) 0.2 % Neut % (Auto) 72.6 % Lymph % (Auto) 15.1 % [place] % (Auto) 4.5 % Eos % (Auto) 7.4 % Baso % (Auto) 0.2 % Immature Gran # (Auto) 0.02 (0.00-0.02) K/uL Neut # (Auto) 6.13 (1.4-6.5) K/uL Lymph # (Auto) 1.28 (1.2-3.4) K/uL [place] # (Auto) 0.38 (0.11-0.59) K/uL Eos # (Auto) 0.63 H (0-0.5) K/uL Baso # (Auto) 0.02 (0-0.2) K/uL Sodium 139 (136-145) mmol/L Potassium 3.3 L (3.5-5.1) mmol/L Chloride 99 (98-107) mmol/L Carbon Dioxide 28 (21-32) mmol/L Anion Gap 12.0 H (3-11) BUN 55 H (7-18) mg/dl Creatinine 13.50 H* (0.6-1.2) mg/dl Est Cr Clr Drug Dosing 7.2 ml/min Est GFR ( Amer) 3.7 Est GFR (Non-Af Amer) 3.2 BUN/Creatinine Ratio 4.2 L (10-20) Glucose 99 (70-99) mg/dl Calcium 7.7 L (8.5-10.1) mg/dl Total Bilirubin 0.3 (0.2-1) mg/dl AST 15 (15-37) U/L ALT 20 (12-78) U/L Alkaline Phosphatase 116 (45-117) U/L Troponin I 0.438 H* (0-0.045) ng/ml Total Protein 6.8 (6.4-8.2) gm/dl Albumin 2.7 L (3.4-5.0) gm/dl Globulin 4.1 H (2.5-4.0) gm/dl Albumin/Globulin Ratio 0.7 L (0.9-2) Lipase 150 (73-393) U/L Imaging Data Radiologist's Impression: Radiology results as stated below per my review and the radiologist's interpretation: XR chest 1V portable CLINICAL HISTORY: Chest Pain dyspnea COMPARISON STUDY: 11/26/2018 FINDINGS: Moderate cardiomegaly. Diaphragms are smooth. Lungs are clear. IMPRESSION: Moderate cardiomegaly. Otherwise negative study. The above report was generated using voice recognition software. It may contain grammatical, syntax or spelling errors. Electronically signed by: Adolph Rizo M.D. 04/21/2019 4:40 PM ECG Data Attestation: I personally reviewed and interpreted this ECG as follows: Indication: chest pain Rate (beats per minute): 84 Rhythm: normal sinus Findings: + other (normal axis), + T-wave inversion (v5, v6) and + prolonged QT Blood Pressure Blood Pressure Findings: Elevated blood pressure Blood Pressure Disposition: further management by hospitalist RONIT Narrative The patient is a 33 year old female w/ PMHx CKD, anemia, diabetes mellitus, HTN, kidney transplant, CHF, and end of stage renal disease who presents to the ED w/ CC of chest pain beginning 5 days ago. Differential diagnosis: Etiologies such as cardiac ischemia, aortic dissection, pulmonary embolism, pneumonia, pneumothorax, musculoskeletal, infections, per icarditis, myocarditis, esophageal rupture, gastrointestinal, as well as others were entertained. Patient was seen and evaluated the bedside. The patient did present from the clinic with concern for left-sided chest pain with radiation to left arm. Patient does relate that it is somewhat exertional denies nausea vomiting or diarrhea. The patient does have a known history of ESRD and is a tobacco user. I counseled the patient on smoking cessation for 5 minutes, was offered resources as well as recommendations to help with smoking cessation, resources were provided, patient understood. The patient's EKG is unchanged with the patient's blood work does show chronic kidney disease but the potassium is not elevated. The patient does have an elevated troponin is slightly 5 times elevated than what her baseline has been chronically in the past. Given this concern with concerning chest pain story I believe the benefit to trend her enzymes. No heparin at this time given the ESRD. Aspirin was also held the patient cannot take NSAIDs. I did speak the on-call hospitalist who agreed to further evaluate treat the patient. Patient was admitted to the medicine service. Impression & Plan Atypical chest pain, ESRD (end stage renal disease) on dialysis, Elevated troponin, Encounter for smoking cessation counseling Discharge Plan Visit Data Chief Complaint: Chest Pain Stated Complaint: CHEST PAIN ED Provider: Karan Santiago Discharge Problem: Atypical chest pain, ESRD (end stage renal disease) on dialysis, Elevated troponin, Encounter for smoking cessation counseling Patient Disposition: Being Evaluated by Hospitalist Forms Stand Alone Forms: Call Back Authorization, My [facility] Prescriptions Prescriptions: No Action loratadine 10 mg tablet 10 mg PO HS PRN (Reason: Allergy Symptoms) RF: 0 gabapentin [Neurontin] 400 mg capsule 400 mg PO QAM RF: 0 cinacalcet [Sensipar] 30 mg tablet 30 mg PO QPM RF: 0 amlodipine [Norvasc] 5 mg tablet 10 mg PO QAM RF: 0 acetaminophen [Tylenol Extra Strength] 500 mg Tablet 1,000 mg PO Q6H PRN (Reason: Pain) RF: 0 sumatriptan succinate [Imitrex] 50 mg tablet 50 mg PO DIRECTED MDD 100 MG/24 HOURS PRN (Reason: Migraine Headache) RF: 0 albuterol sulfate [Ventolin HFA] 90 mcg/actuation HFA aerosol inhaler 2 puff Inhalation QID PRN (Reason: Shortness Of Breath Or Wheezing) RF: 0 sertraline [Zoloft] 50 mg tablet 50 mg PO QAM RF: 0 calcium acetate 667 mg capsule 3,335 mg PO TIDM RF: 0 calcium acetate 667 mg capsule 2,668 mg PO DIRECTED RF: 0 mirtazapine 30 mg Tablet 30 mg PO HS RF: 0 gabapentin [Neurontin] 400 mg capsule 800 mg PO HS RF: 0 calcium acetate 667 mg capsule 1,334 mg PO DIRECTED RF: 0 gabapentin 400 mg Capsule 400 mg PO QDL RF: 0 sevelamer carbonate 800 mg tablet 1,600 mg PO TIDM RF: 0 carvedilol 3.125 mg Tablet 6.25 mg PO BID RF: 0 Referrals Referrals: Adolph Aldridge MD [Primary Care Provider] - The scribe's documentation has been prepared under my direction and personally reviewed by me in its entirety. I confirm that the note above accurately reflects all work, treatment, procedures, and medical decision making performed by me.
[2019-04-21] MEDS ORDERED: NITROGLYCERIN SL 0.4 MG/TAB TAB SL PRN (19:34)
[2019-04-21] MEDS ORDERED: LORATADINE 10 MG TAB PO PRN (19:34)
[2019-04-21] MEDS ORDERED: ACETAMINOPHEN 325 MG TAB PO PRN (19:34)
[2019-04-21] MEDS ORDERED: ALBUTEROL HFA 8 GM INHALER INH PRN (19:34)
[2019-04-21] MEDS ORDERED: CALCIUM ACETATE 667 MG CAP PO PRN ×2 (19:34)
[2019-04-21] MEDS ORDERED: HYDROmorphone INJ 0.5 MG/0.5 ML SYR IV STA (19:53)
[2019-04-21] MEDS: CARVEDILOL 3.125 MG TAB PO SCH (21:11)
[2019-04-21] MEDS: GABAPENTIN 400 MG CAP PO SCH (21:12)
[2019-04-21] MEDS: MIRTAZAPINE TAB 15 MG TAB PO SCH (21:15)
[2019-04-22] MEDS: HYDROCODONE/ACETAMOPHEN 5/325MG TAB PO PRN ×3 (04:26→16:22)
[2019-04-22 05:05] LABS: Hematocrit (blood only) 22.7 % (37-47); Hemoglobin 7.5 g/dL (12.0-16.0); Mean Corpuscular Hemoglobin 31.5 pg (25-34); Mean Corpuscular Volume 95.4 fL (80-100); Mean Platelet Volume 8.5 fL (7.4-10.4); Platelet Count 133 K/uL (130-400); RDW Coefficient of Variation 15.2 % (11.5-14.5); RDW Standard Deviation 50.6 fL (36.4-46.3); Red Blood Count 2.38 M/uL (4.2-5.4); White Blood Count 7.85 K/uL (4.8-10.8)
[2019-04-22 05:48] LABS: BUN Creatinine Ratio 4.2 (10-20); Calcium 7.2 mg/dl (8.5-10.1); Creatinine Clr Calc Pharmacy 6.8 ml/min; Est GFR (African American) 3.5; Potassium 3.1 mmol/L (3.5-5.1); Troponin I 0.503 ng/ml (0-0.045)
[2019-04-22] MEDS: CALCIUM ACETATE 667 MG CAP PO SCH ×3 (07:37→16:23)
[2019-04-22] MEDS: SEVELAMER HCL 800 MG TABLET PO SCH ×3 (07:37→16:23)
[2019-04-22] MEDS: AMLODIPINE BESYLATE 5 MG TAB PO SCH (07:39)
[2019-04-22] MEDS: GABAPENTIN 400 MG CAP PO SCH ×3 (07:40→20:09)
[2019-04-22] MEDS: FAMOTIDINE 20 MG TAB PO SCH (07:40)
[2019-04-22] MEDS: CARVEDILOL 3.125 MG TAB PO SCH ×2 (07:40→20:09)
[2019-04-22] MEDS ORDERED: SERTRALINE HCL 50 MG TABLET PO SCH (09:00)
[2019-04-22] MEDS ORDERED: POTASSIUM CHLORIDE 20 MEQ TABCR PO STA (09:08)
--- NOTE | 2019-04-22 09:59 | Nephrology Consultation ---
Date of Consultation April 22, 2019 Assessment & Plan (1) ESRD (end stage renal disease) on dialysis: Patient with ESRD on PD now admitted with chest pain. She missed PD last night. We will do cycled PD tonight for 6 exchanges, fill volume of 2500 mL over 12 hours using 2.5% dextrose. We will give an additional 20 mEq of potassium chloride. (2) Anemia due to end stage renal disease: Hemoglobin of 7.5 today. Patient missed Procrit yesterday. We will give Procrit 20,000 units subcu today. (3) HTN (hypertension): Blood pressure is above target. Resume home antihypertensives. Control pain (4) Atypical chest pain: Patient with atypical chest pain and states a positive troponin. She is being evaluated by cardiology for possible cardiac etiology. No evidence of volume overload on chest x-ray. History of Present Illness Reason for Consultation: ESRD on PD Requesting Physician: Juan Victor MD Attending Physician: Juan Victor MD History of Present Illness 33 y/o F w/ ESRD on PD admitted on 04/21/2019 with chest pain for 6 days and being evaluated for dialysis support. 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 She is doing PD which was recently started in mid January after being on hemodialysis for a few months. She uses 2.5% dextrose with fill volume of 2500 mL for 5 exchanges with the mid day dwell. She is on the machine for 10 hours. She was supposed to take Procrit yesterday but missed it due to her chest pain. Her carvedilol was also recently increased. She still complaining of mild chest pain but no shortness of breath. She is complaining of facial puffiness. No leg swelling. No abdominal pain. No vomiting or diarrhea. She did not have PD last night. Allergies Allergy/AdvReac Type Severity Reaction Status Date / Time cefaclor Allergy Intermediate Rash Verified 04/21/19 17:25 amoxicillin AdvReac Mild VOMITING Verified 04/21/19 17:25 clavulanic acid AdvReac Mild VOMITING Verified 04/21/19 17:25 Home Medications Home Medications Medication Instructions Recorded Confirmed Type albuterol sulfate [Ventolin HFA] 2 puff INHALATION QID PRN 05/30/18 04/21/19 H istory calcium acetate 2,668 mg PO DIRECTED 05/30/18 04/21/19 History calcium acetate 3,335 mg PO TIDM 05/30/18 04/21/19 History sertraline [Zoloft] 50 mg PO QAM 05/30/18 04/21/19 History sumatriptan succinate [Imitrex] 50 mg PO DIRECTED PRN MDD 100 05/30/18 04/21/19 History MG/24 HOURS loratadine 10 mg PO HS PRN 07/30/18 04/21/19 History mirtazapine 30 mg PO HS 10/08/18 04/21/19 History amlodipine [Norvasc] 10 mg PO QAM 11/03/18 04/21/19 History cinacalcet [Sensipar] 30 mg PO QPM 11/03/18 04/21/19 History gabapentin [Neurontin] 400 mg PO QAM 11/03/18 04/21/19 History gabapentin [Neurontin] 800 mg PO HS 11/26/18 04/21/19 History acetaminophen [Tylenol Extra 1,000 mg PO Q6H PRN 12/04/18 04/21/19 History Strength] calcium acetate 1,334 mg PO DIRECTED 01/24/19 04/21/19 History gabapentin 400 mg PO QDL 01/24/19 04/21/19 History carvedilol 6.25 mg PO BID 04/21/19 04/21/19 History famotidine [Pepcid] 40 mg PO DAILY 04/21/19 04/21/19 History sevelamer carbonate 1,600 mg PO TIDM 04/21/19 04/21/19 History Patient History Medical History Fistula of artery (Chronic) Diastolic CHF (Chronic) "echo 04/18/17 - EF 60-65%, grade II diastolic dysfunction" FSGS (focal segmental glomerulosclerosis) (Chronic) DM2 (diabetes mellitus, type 2) (Chronic) HTN (hypertension) (Chronic) CKD (chronic kidney disease) stage V requiring chronic dialysis (Chronic) Peritoneal dialysis catheter in place (Chronic) Dependence on peritoneal dialysis (Acute) Depression (Chronic) Surgical History H/O knee surgery (Resolved) H/O: (Resolved) H/O tubal ligation (Resolved) H/O eye surgery (Resolved) H/O section (Resolved) History of cholecystectomy (Resolved) H/O hernia repair (Resolved) Family History Grandmother Hx of CABG Mother Diabetes Father Crohn's disease Social History Preferred Language: Syrian Communication Ability: Effective Cpr Ambulance Driver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 Beliefs That Will Affect Care: None Current Living Situation: Family and Significant Other Current Living Situation Comment: [facility] Other Information That Helps Us Care for You: No Feels Safe at Home: Yes Safety Concerns: Feels Safe At This Time Smoking Status: Current every day smoker Tobacco Type: cigarettes ; Cigarettes Per Day: 10 ; Do You Dip or Chew Tobacco: No ; Second Hand Exposure: No ; Tobacco Cessation Education Requested by Patient: No Hx Alcohol Use: Yes Hx Substance Use: No Review of Systems Review of Systems: All systems reviewed & are unremarkable except as noted in HPI & below Physical Exam Physical Exam: General exam: Appears comfortable, no acute distress HEENT: Pupils are equal and reactive to light Neck: No JVD, neck is supple trachea is midline Respiratory system: Clear breath sounds bilaterally. Gastrointestinal: Abdomen is soft, non distended, non tender, bowel sounds are present CVS: Regular rate and rhythm. No murmurs, rubs or gallops Musculoskeletal: No joint or muscle tenderness Extremities: Non tender, no edema, peripheral pulses are present Neuro: Oriented, no tremors, no focal neurological deficits Skin: No rashes Access: PD catheter appears clean. Patient also has left upper arm AV fistula. Results & Data Vital Signs (Past 12 Hours) Vital Signs Temp Pulse Pulse Resp BP Pulse Ox 04/22/19 09:12 80 04/22/19 07:07 36.8 C 75 18 165/98 H 98 04/22/19 04:00 36.5 C 78 17 154/83 H 97 04/22/19 00:40 80 04/21/19 23:58 37 C 83 16 174/98 H 94 Laboratory Results Laboratory Results - last 24 hr 04/21/19 04/21/19 04/21/19 16:24 16:24 22:16 WBC 8.46 RBC 2.53 L Hgb 8.0 L Hct 24.1 L MCV 95.3 MCH 31.6 MCHC 33.2 RDW Std Deviation 50.1 H RDW Coeff of Laith 14.8 H Plt Count 148 MPV 8.6 Immature Gran % (Auto) 0.2 Neut % (Auto) 72.6 Lymph % (Auto) 15.1 [place] % (Auto) 4.5 Eos % (Auto) 7.4 Baso % (Auto) 0.2 Immature Gran # (Auto) 0.02 Neut # (Auto) 6.13 Lymph # (Auto) 1.28 [place] # (Auto) 0.38 Eos # (Auto) 0.63 H Baso # (Auto) 0.02 Sodium 139 Potassium 3.3 L Chloride 99 Carbon Dioxide 28 Anion Gap 12.0 H BUN 55 H Creatinine 13.50 H* Est Cr Clr Drug Dosing 7.2 Est GFR ( Amer) 3.7 Est GFR (Non-Af Amer) 3.2 BUN/Creatinine Ratio 4.2 L Glucose 99 Calcium 7.7 L Total Bilirubin 0.3 AST 15 ALT 20 Alkaline Phosphatase 116 Troponin I 0.438 H* 0.451 H* Total Protein 6.8 Albumin 2.7 L Globulin 4.1 H Albumin/Globulin Ratio 0.7 L Lipase 150 04/22/19 04/22/19 04:46 04:47 WBC 7.85 RBC 2.38 L Hgb 7.5 L Hct 22.7 L MCV 95.4 MCH 31.5 MCHC 33.0 RDW Std Deviation 50.6 H RDW Coeff of Laith 15.2 H Plt Count 133 MPV 8.5 Immature Gran % (Auto) Neut % (Auto) Lymph % (Auto) [place] % (Auto) Eos % (Auto) Baso % (Auto) Immature Gran # (Auto) Neut # (Auto) Lymph # (Auto) [place] # (Auto) Eos # (Auto) Baso # (Auto) Sodium 136 Potassium 3.1 L Chloride 97 L Carbon Dioxide 27 Anion Gap 12.0 H BUN 59 H Creatinine 14.20 H* D Est Cr Clr Drug Dosing 6.8 Est GFR ( Amer) 3.5 Est GFR (Non-Af Amer) 3.0 BUN/Creatinine Ratio 4.2 L Glucose 102 H Calcium 7.2 L Total Bilirubin AST ALT Alkaline Phosphatase Troponin I 0.503 H* Total Protein Albumin Globulin Albumin/Globulin Ratio Lipase (1) HTN (hypertension) Hypertension type: essential hypertension Qualified Code(s): I10 - Essential (primary) hypertension
--- NOTE | 2019-04-22 11:07 | Cardiology Consultation ---
Date of Consultation April 22, 2019 Assessment & Plan (1) Atypical chest pain: Symptoms do not sound anginal. No signs of pericardial effusion of significance on echocardiogram preserved LV function troponins are elevated low in a flat pattern. Minimal risk factors other than hypertension possible past administration of immunosuppressive therapy post transplant Recommend stress echocardiogram in a.m. to complete evaluation after patient having undergone dialysis this evening Would supplement potassium given past history of QT prolongation Continue current dosing of carvedilol and treat hypertension as necessary (2) Elevated troponin: Troponins are elevated but flat with history of chronic troponin elevation no signs of myocardial injury by echocardiogram with study unchanged from prior study (3) Anemia due to end stage renal disease: (4) Prolonged QT interval: History of Present Illness Attending Physician: Juan Victor MD History of Present Illness Patient is a 33-year-old female whose history is notable for end-stage renal disease secondary to focal glomerular sclerosis on replacement therapy with peritoneal dialysis. Past history of failed renal transplant, bipolar disorder, chronic anemia secondary to renal disease, past QT prolongation. Prior evaluations in the past for atypical chest discomfort. Patient with minimal cardiac risk factors hypertension possible past immunosuppressive therapy Troponins are elevated but flat without peak and trough no acute ST segment changes on EKG, no change in echocardiogram Patient presents noting intermittent sharp jabbing pain lasting seconds and hours yesterday no radiation to jaw shoulders arms no diaphoresis. Symptoms not exertionally related or exacerbated. No pleuritic component Did not receive dialysis last night nor Procrit yesterday Notes carvedilol was recently increased to 6.25 g twice per day for hypertensive issues Allergies Allergy/AdvReac Type Severity Reaction Status Date / Time cefaclor Allergy Intermediate Rash Verified 04/21/19 17:25 amoxicillin AdvReac Mild VOMITING Verified 04/21/19 17:25 clavulanic acid AdvReac Mild VOMITING Verified 04/21/19 17:25 Home Medications Home Medications Medication Instructions Recorded Confirmed Type albuterol sulfate [Ventolin HFA] 2 puff INHALATION QID PRN 05/30/18 04/21/19 History calcium acetate 2,668 mg PO DIRECTED 05/30/18 04/21/19 History calcium acetate 3,335 mg PO TIDM 05/30/18 04/21/19 History sertraline [Zoloft] 50 mg PO QAM 05/30/18 04/21/19 History sumatriptan succinate [Imitrex] 50 mg PO DIRECTED PRN MDD 100 05/30/18 04/21/19 History MG/24 HOURS loratadine 10 mg PO HS PRN 07/30/18 04/21/19 History mirtazapine 30 mg PO HS 10/08/18 04/21/19 History amlodipine [Norvasc] 10 mg PO QAM 11/03/18 04/21/19 History cinacalcet [Sensipar] 30 mg PO QPM 11/03/18 04/21/19 History gabapentin [Neurontin] 400 mg PO QAM 11/03/18 04/21/19 History gabapentin [Neurontin] 800 mg PO HS 11/26/18 04/21/19 History acetaminophen [Tylenol Extra 1,000 mg PO Q6H PRN 12/04/18 04/21/19 History Strength] calcium acetate 1,334 mg PO DIRECTED 01/24/19 04/21/19 History gabapentin 400 mg PO QDL 01/24/19 04/21/19 History carvedilol 6.25 mg PO BID 04/21/19 04/21/19 History famotidine [Pepcid] 40 mg PO DAILY 04/21/19 04/21/19 History sevelamer carbonate 1,600 mg PO TIDM 04/21/19 04/21/19 History Patient History Medical History Fistula of artery (Chronic) Diastolic CHF (Chronic) "echo 04/18/17 - EF 60-65%, grade II diastolic dysfunction" FSGS (focal segmental glomerulosclerosis) (Chronic) DM2 (diabetes mellitus, type 2) (Chronic) HTN (hypertension) (Chronic) CKD (chronic kidney disease) stage V requiring chronic dialysis (Chronic) Peritoneal dialysis catheter in place (Chronic) Dependence on peritoneal dialysis (Acute) Depression (Chronic) Surgical History H/O knee surgery (Resolved) H/O: (Resolved) H/O tubal ligation (Resolved) H/O eye surgery (Resolved) H/O section (Resolved) History of cholecystectomy (Resolved) H/O hernia repair (Resolved) Family History Grandmother Hx of CABG Mother Diabetes Father Crohn's disease Social History Preferred Language: Irish Communication Ability: Effective Third Steel Pourer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 Beliefs That Will Affect Care: None Current Living Situation: Family and Significant Other Current Living Situation Comment: [facility] Other Information That Helps Us Care for You: No Feels Safe at Home: Yes Safety Concerns: Feels Safe At This Time Smoking Status: Current every day smoker Tobacco Type: cigarettes ; Cigarettes Per Day: 10 ; Do You Dip or Chew Tobacco: No ; Second Hand Exposure: No ; Tobacco Cessation Education Requested by Patient: No Hx Alcohol Use: Yes Hx Substance Use: No Physical Exam Constitutional: WD/WN, vitals as above Eyes: PERRL, conjunctivae normal, anicteric sclerae ENMT: external ear and nose normal, oropharynx normal Neck: trachea midline, no thyromegaly + thick neck Respiratory: normal respiratory effort, lungs clear to auscultation Cardiovascular: Rate/Rhythm: regular rate Heart Sounds: normal S1 and normal S2; no gallop, no murmur and no cardiac rub Palpation: normal PMI Vessels: normal carotid upstroke and femoral pulses present; no JVD, no carotid bruit and no abdominal aortic bruit Extremities: no edema Gastrointestinal (Abdomen): Percussion/Palpation: abdomen soft; no hepatosplenomegaly Musculoskeletal: no cyanosis or clubbing, extremities motor strength 5/5 Results & Data Vital Signs (Past 12 Hours) Vital Signs Temp Pulse Pulse Resp BP Pulse Ox 04/22/19 09:12 80 04/22/19 07:07 36.8 C 75 18 165/98 H 98 04/22/19 04:00 36.5 C 78 17 154/83 H 97 04/22/19 00:40 80 04/21/19 23:58 37 C 83 16 174/98 H 94 Laboratory Results Laboratory Results - last 24 hr 04/21/19 04/21/19 04/21/19 16:24 16:24 22:16 WBC 8.46 RBC 2.53 L Hgb 8.0 L Hct 24.1 L MCV 95.3 MCH 31.6 MCHC 33.2 RDW Std Deviation 50.1 H RDW Coeff of Laith 14.8 H Plt Count 148 MPV 8.6 Immature Gran % (Auto) 0.2 Neut % (Auto) 72.6 Lymph % (Auto) 15.1 [place] % (Auto) 4.5 Eos % (Auto) 7.4 Baso % (Auto) 0.2 Immature Gran # (Auto) 0.02 Neut # (Auto) 6.13 Lymph # (Auto) 1.28 [place] # (Auto) 0.38 Eos # (Auto) 0.63 H Baso # (Auto) 0.02 Sodium 139 Potassium 3.3 L Chloride 99 Carbon Dioxide 28 Anion Gap 12.0 H BUN 55 H Creatinine 13.50 H* Est Cr Clr Drug Dosing 7.2 Est GFR ( Amer) 3.7 Est GFR (Non-Af Amer) 3.2 BUN/Creatinine Ratio 4.2 L Glucose 99 Calcium 7.7 L Total Bilirubin 0.3 AST 15 ALT 20 Alkaline Phosphatase 116 Troponin I 0.438 H* 0.451 H* Total Protein 6.8 Albumin 2.7 L Globulin 4.1 H Albumin/Globulin Ratio 0.7 L Lipase 150 04/22/19 04/22/19 04:46 04:47 WBC 7.85 RBC 2.38 L Hgb 7.5 L Hct 22.7 L MCV 95.4 MCH 31.5 MCHC 33.0 RDW Std Deviation 50.6 H RDW Coeff of Laith 15.2 H Plt Count 133 MPV 8.5 Immature Gran % (Auto) Neut % (Auto) Lymph % (Auto) [place] % (Auto) Eos % (Auto) Baso % (Auto) Immature Gran # (Auto) Neut # (Auto) Lymph # (Auto) [place] # (Auto) Eos # (Auto) Baso # (Auto) Sodium 136 Potassium 3.1 L Chloride 97 L Carbon Dioxide 27 Anion Gap 12.0 H BUN 59 H Creatinine 14.20 H* D Est Cr Clr Drug Dosing 6.8 Est GFR ( Amer) 3.5 Est GFR (Non-Af Amer) 3.0 BUN/Creatinine Ratio 4.2 L Glucose 102 H Calcium 7.2 L Total Bilirubin AST ALT Alkaline Phosphatase Troponin I 0.503 H* Total Protein Albumin Globulin Albumin/Globulin Ratio Lipase ECG Additional Comments: 22-APR-2019 07:00:48 [facility]-MED[facility] ROUTINE RETRIEVAL Normal sinus rhythm Possible Left atrial enlargement ST & T wave abnormality, consider lateral ischemia Prolonged QT Abnormal ECG When compared with ECG of 21-APR-2019 16:03, (unconfirmed) Inverted T waves have replaced nonspecific T wave abnormality in Lateral leads QT has shortened
[2019-04-22] MEDS ORDERED: EPOETIN ALFA 20,000 UNITS/ML VIAL SQ ONE (14:00)
--- NOTE | 2019-04-22 14:12 | Hospitalist Progress Note ---
Date of Service April 22, 2019 Assessment & Plan (1) Atypical chest pain: This is a 33yo F with a PMH of ESRD s/p failed renal transplant 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 Nieves, depression with anxiety, migraine, diet-controlled type 2 diabetes mellitus, chronic anemia and history of atypical chest pain who presents with intermittent chest pain x 5 days. -Intermittent CP central with left radiation lasting 20 minutes- 1 day -Cardiology has evaluated patient in the past and felt CP was not angina, however troponin elevated at 0.438 (baseline trop ~ 0.09) -EKG with prolonged QTc of 571. No other acute ischemic changes. CXR with moderate cardiomegaly. Otherwise negative study -Most recent 2D echo from Jul 2018 with mild conc. LVH, EF: 50-55%, borderline global hypokinesis of left ventricle, mild MR -Trend troponin -troponin remains chronically elevated -EKG has prolonged QT which has been improved -Continues to have chest pain -Cardiology consult-appreciate input -We will have dobutamine stress echo tomorrow (2) Elevated troponin: This is a 33yo F with a PMH of ESRD s/p failed renal transplant 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 Nieves, depression with anxiety, migraine, diet-controlled type 2 diabetes mellitus, chronic anemia and history of atypical chest pain who presents with intermittent chest pain x 5 days. -Intermittent CP central with left radiation lasting 20 minutes- 1 day -Cardiology has evaluated patient in the past and felt CP was not angina, however troponin elevated at 0.438 (baseline trop ~ 0.09) -EKG with prolonged QTc of 571. No other acute ischemic changes. CXR with moderate cardiomegaly. Otherwise negative study -Most recent 2D echo from Jul 2018 with mild conc. LVH, EF: 50-55%, borderline global hypokinesis of left ventricle, mild MR -Trend troponin-Negative.2D echo: Low normal LV systolic function with borderline global hypokinesis, EF 50 to 55%, mild concentric LVH, mild MR, mild TR and pulmonary hypertension -We will have dobutamine stress echo tomorrow (3) ESRD (end stage renal disease) on dialysis: (4) Peritoneal dialysis catheter in place: S/p failed kidney transplant, follows closely with Dr. Nieves -Reports compliance with PD for the past 4 days -No abdominal pain or erythema/drainage of PD site -Continue calcium acetate, Sensipar, recently prescribed Renvela by nephro but has not started yet due to financial issues -Dialysis nurse not in house --nephro consult for PD vs HD tomorrow -Discussed with Dr. Jackson, the arch support maker will have Peritoneal dialysis tonight (5) Prolonged QT interval: QTc of 571, prolonged at baseline -Monitor on telemetry -Avoid QT prolonging medications (6) HTN (hypertension): Slightly elevated at 154/78 -Continue home amlodipine, add PRN beta blockers if needed (7) Depression: Continue Zoloft DVT Ppx: SCDs for now Code status: FULL PCP: Luis Carlos Dispo: Observation telemetry. Plan to return home once medically stable. Subjective 04/22 Patient was seen and examined in telemetry unit She has been complaining of precordial chest pain 10 out of 10 with radiation to the left shoulder Denies any other symptoms associated with it Intact she has been sleeping through the pain Denies any shortness of breath and/or palpitation, no abdominal pain nausea and/or vomiting Review of Systems Review of Systems: All systems reviewed and are unremarkable except as noted below Constitutional: + weakness Cardiovascular: + chest pain, + chest pain at rest and + radiating jaw, neck or arm pain; no dyspnea, no dyspnea at rest and no orthopnea Physical Exam Physical Exam: Lying in bed comfortably but on asking complains to have chest pain 10 out of 10 Constitutional: well developed, well nourished and + obese Eyes: PERRL, conjunctivae normal, anicteric sclerae ENMT: external ear and nose normal, oropharynx normal Neck: trachea midline, no thyromegaly + thick neck Respiratory: normal respiratory effort; no respiratory distress Auscultation: + diminished lung sounds and + crackles (Minimal crackles at the bases) Cardiovascular: Rate/Rhythm: regular rate Heart Sounds: normal S1 and normal S2; no gallop and no murmur Palpation: normal PMI Vessels: normal carotid upstroke and femoral pulses present Extremities: no edema Gastrointestinal (Abdomen): Inspection/Auscultation: abdomen normal to inspection Percussion/Palpation: abdomen soft; no hepatosplenomegaly Musculoskeletal: no cyanosis or clubbing, extremities motor strength 5/5 Lymphatic: no cervical or axillary lymphadenopathy Results & Data Vital Signs (Past 12 Hours) Vital Signs Temp Pulse Pulse Resp BP Pulse Ox 04/22/19 11:36 36.5 C 74 18 151/86 H 95 04/22/19 09:12 80 04/22/19 07:07 36.8 C 75 18 165/98 H 98 04/22/19 04:00 36.5 C 78 17 154/83 H 97 Laboratory Results Short CBC 04/21/19 04/22/19 Range/Units 16:24 04:47 WBC 8.46 7.85 (4.8-10.8) K/uL Hgb 8.0 L 7.5 L (12.0-16.0) g/dL Hct 24.1 L 22.7 L (37-47) % Plt Count 148 133 (130-400) K/uL BMP 04/21/19 04/22/19 16:24 04:46 Sodium 139 136 Potassium 3.3 L 3.1 L Chloride 99 97 L Carbon Dioxide 28 27 BUN 55 H 59 H Creatinine 13.50 H* 14.20 H* D Glucose 99 102 H Calcium 7.7 L 7.2 L Cardiac Enzymes 04/21/19 04/21/19 04/22/19 Range/Units 16:24 22:16 04:46 Troponin I 0.438 H* 0.451 H* 0.503 H* (0-0.045) ng/ml Liver Function 04/21/19 Range/Units 16:24 Total Bilirubin 0.3 (0.2-1) mg/dl AST 15 (15-37) U/L ALT 20 (12-78) U/L Alkaline Phosphatase 116 (45-117) U/L Albumin 2.7 L (3.4-5.0) gm/dl Medications Administered Current Inpatient Medications Acetaminophen (Tylenol) 650 mg PO Q4H PRN PRN Reason: Pain or Fever Stop: 05/21/19 19:33 Hydrocodone Bitart/Acetaminophen ([place] 5/325) 1 tab PO ONE PRN PRN Reason: Pain Stop: 05/05/19 20:33 Last Admin: 04/22/19 12:19 Dose: 1 tab Documented by: Albuterol (Ventolin Hfa) 2 puffs INH QID PRN PRN Reason: Shortness Of Breath Or Wheezing Stop: 05/21/19 19:33 Amlodipine Besylate (Norvasc) 10 mg PO QAM NIKKI Stop: 05/22/19 08:59 Last Admin: 04/22/19 07:39 Dose: 10 mg Documented by: Calcium Acetate (Phoslo) 2,668 mg PO PRN PRN PRN Reason: SNACKS Stop: 05/21/19 19:33 Calcium Acetate (Phoslo) 3,335 mg PO TIDM [facility] Stop: 05/22/19 07:59 Last Admin: 04/22/19 11:53 Dose: 3,335 mg Documented by: Calcium Acetate (Phoslo) 1,334 mg PO PRN PRN PRN Reason: WHEN DRINKING DARK SODAS Stop: 05/21/19 19:33 Carvedilol (Coreg) 6.25 mg PO BID [facility] Stop: 05/21/19 20:59 Last Admin: 04/22/19 07:40 Dose: 6.25 mg Documented by: Famotidine (Pepcid) 40 mg PO DAILY [facility] Stop: 05/22/19 08:59 Last Admin: 04/22/19 07:40 Dose: 40 mg Documented by: Gabapentin (Neurontin) 400 mg PO QAM [facility] Stop: 05/22/19 08:59 Last Admin: 04/22/19 07:40 Dose: 400 mg Documented by: Gabapentin (Neurontin) 400 mg PO QDL [facility] Stop: 05/22/19 11:29 Last Admin: 04/22/19 11:54 Dose: 400 mg Documented by: Gabapentin (Neurontin) 800 mg PO HS [facility] Stop: 05/21/19 20:59 Last Admin: 04/21/19 21:12 Dose: 800 mg Documented by: Hydralazine HCl (Hydralazine Hcl) 10 mg IV Q6H PRN PRN Reason: SBP above 170 Stop: 05/21/19 20:31 Loratadine (Claritin) 10 mg PO HS PRN PRN Reason: Allergy Symptoms Stop: 05/21/19 19:33 Mirtazapine (Remeron) 30 mg PO HS [facility] Stop: 05/21/19 20:59 Last Admin: 04/21/19 21:15 Dose: 30 mg Documented by: Miscellaneous (Order Awaiting Action) 1 ea N/A QS [facility] Stop: 05/22/19 00:00 Last Admin: 04/22/19 07:30 Dose: Not Given Documented by: Nitroglycerin (Nitrostat) 0.4 mg SL UD PRN PRN Reason: Chest Pain Stop: 05/21/19 19:33 Sertraline HCl (Zoloft) 50 mg PO QAM [facility] Stop: 05/22/19 08:59 Sevelamer HCl (Renagel) 1,600 mg PO TIDM [facility] Stop: 05/22/19 07:59 Last Admin: 04/22/19 11:54 Dose: 1,600 mg Documented by: (1) HTN (hypertension) Hypertension type: essential hypertension Qualified Code(s): I10 - Essential (primary) hypertension (2) Depression Depression Type: unspecified Qualified Code(s): F32.9 - Major depressive disorder, single episode, unspecified
[2019-04-22 14:18] LABS: Hepatitis B Surface Ab Quant > 1000.00 mIU/mL (>or=10mIU/mL Immune); Hepatitis B Surface Antibody Immune
[2019-04-22 14:29] LABS: Hepatitis B Surface Antigen Neg (Neg)
[2019-04-22 19:13] LABS: Basophils # (auto) 0.03 K/uL (0-0.2); Basophils % (auto) 0.4 %; Eosinophils # (auto) 0.63 K/uL (0-0.5); Eosinophils % (auto) 8.3 %; Hematocrit (blood only) 23.1 % (37-47); Hemoglobin 7.8 g/dL (12.0-16.0); Immature Granulocytes # (auto) 0.02 K/uL (0.00-0.02); Immature Granulocytes % (auto) 0.3 %; Lymphocytes # (auto) 1.21 K/uL (1.2-3.4); Lymphocytes % (auto) 15.9 %; Mean Corpuscular Hemoglobin 31.7 pg (25-34); Mean Corpuscular Volume 93.9 fL (80-100); Mean Platelet Volume 8.2 fL (7.4-10.4); Monocytes # (auto) 0.35 K/uL (0.11-0.59); Monocytes % (auto) 4.6 %; Neutrophils # (auto) 5.38 K/uL (1.4-6.5); Neutrophils % (auto) 70.5 %; Platelet Count 124 K/uL (130-400); RDW Coefficient of Variation 14.9 % (11.5-14.5); RDW Standard Deviation 48.9 fL (36.4-46.3); Red Blood Count 2.46 M/uL (4.2-5.4); White Blood Count 7.62 K/uL (4.8-10.8)
[2019-04-22] MEDS ORDERED: HYDROmorphone INJ 0.5 MG/0.5 ML SYR IV STA (19:28)
[2019-04-22] MEDS ORDERED: HYDROmorphone INJ 0.5 MG/0.5 ML SYR ONE (19:36)
[2019-04-22 19:58] LABS: Mean Corpuscular Hgb Conc 33.8 g/dL (32-36)
[2019-04-22 20:01] LABS: Basophilic Stippling 1+; Ovalocytes 1+; Polychromasia 1+
[2019-04-22] MEDS: MIRTAZAPINE TAB 15 MG TAB PO SCH (20:08)
[2019-04-22] MEDS: HydrALAZINE HCL 20 MG/ML VIAL IV PRN (20:13)
[2019-04-22] MEDS: PROMETHAZINE HCL 12.5 MG in SODIUM CHLORIDE 0.9% 50 ML IV PRN (23:35)
[2019-04-23 06:22] LABS: Basophils # (auto) 0.03 K/uL (0-0.2); Basophils % (auto) 0.5 %; Eosinophils # (auto) 0.56 K/uL (0-0.5); Eosinophils % (auto) 8.4 %; Hematocrit (blood only) 25.2 % (37-47); Hemoglobin 8.6 g/dL (12.0-16.0); Immature Granulocytes # (auto) 0.02 K/uL (0.00-0.02); Immature Granulocytes % (auto) 0.3 %; Lymphocytes # (auto) 0.95 K/uL (1.2-3.4); Lymphocytes % (auto) 14.3 %; Mean Corpuscular Hemoglobin 31.7 pg (25-34); Mean Corpuscular Hgb Conc 34.1 g/dL (32-36); Mean Platelet Volume 9.1 fL (7.4-10.4); Monocytes # (auto) 0.34 K/uL (0.11-0.59); Monocytes % (auto) 5.1 %; Neutrophils # (auto) 4.75 K/uL (1.4-6.5); Neutrophils % (auto) 71.4 %; Platelet Count 138 K/uL (130-400); RDW Standard Deviation 49.3 fL (36.4-46.3); Red Blood Count 2.71 M/uL (4.2-5.4); White Blood Count 6.65 K/uL (4.8-10.8)
[2019-04-23 07:03] LABS: BUN Creatinine Ratio 4.2 (10-20); Calcium 8.5 mg/dl (8.5-10.1); Creatinine Clr Calc Pharmacy 7.6 ml/min; Est GFR (African American) 3.9; Est GFR (Non-African American) 3.4; Magnesium 1.9 mg/dl (1.8-2.4); Potassium 3.3 mmol/L (3.5-5.1)
[2019-04-23] MEDS: AMLODIPINE BESYLATE 5 MG TAB PO SCH (08:06)
[2019-04-23] MEDS: GABAPENTIN 400 MG CAP PO SCH ×3 (08:06→20:51)
[2019-04-23] MEDS: SEVELAMER HCL 800 MG TABLET PO SCH ×3 (08:07→17:16)
[2019-04-23] MEDS: CALCIUM ACETATE 667 MG CAP PO SCH ×3 (08:07→17:16)
[2019-04-23] MEDS: FAMOTIDINE 20 MG TAB PO SCH (08:08)
[2019-04-23] MEDS ORDERED: POTASSIUM CHLORIDE 20 MEQ TABCR PO STA (08:27)
[2019-04-23] MEDS: PROMETHAZINE HCL 12.5 MG in SODIUM CHLORIDE 0.9% 50 ML IV PRN (08:28)
--- NOTE | 2019-04-23 09:13 | Cardiology Progress Note ---
Date of Service April 23, 2019 Assessment & Plan (1) Atypical chest pain: Symptoms do not sound anginal. No signs of pericardial effusion of significance on echocardiogram preserved LV function troponins are elevated low in a flat pattern. Minimal risk factors other than hypertension possible past administration of immunosuppressive therapy post transplant Atypical chest discomfort without recurrence no signs of myocardial ischemia by EKG Stress test scheduled for this morning canceled due to markedly elevated blood pressures Would recommend treating hypertension considering stress testing at later date (2) Elevated troponin: Troponins are elevated but flat with history of chronic troponin elevation no signs of myocardial injury by echocardiogram with study unchanged from prior study (3) Anemia due to end stage renal disease: (4) Prolonged QT interval: Subjective Patient seen and examined, chart, telemetry reviewed. Patient nauseated this morning blood pressure was hypertensive throughout the night and this morning. Initially plan for stress echocardiography this morning though the canceled due to markedly elevated blood pressures No significant chest discomfort, no arrhythmias. Physical Exam Constitutional: WD/WN, vitals as above Eyes: PERRL, conjunctivae normal, anicteric sclerae ENMT: external ear and nose normal, oropharynx normal Neck: trachea midline, no thyromegaly + thick neck Respiratory: normal respiratory effort, lungs clear to auscultation Cardiovascular: Rate/Rhythm: regular rate Heart Sounds: normal S1 and normal S2; no gallop, no murmur and no cardiac rub Palpation: normal PMI Vessels: normal carotid upstroke and femoral pulses present; no JVD, no carotid bruit and no abdominal aortic bruit Extremities: no edema Gastrointestinal (Abdomen): Percussion/Palpation: abdomen soft; no hepatosplenomegaly Musculoskeletal: no cyanosis or clubbing, extremities motor strength 5/5 Results & Data Vital Signs (Past 12 Hours) Vital Signs Temp Pulse Resp BP Pulse Ox 04/23/19 07:37 181/114 H 04/23/19 07:34 37.1 C 89 20 194/114 H 98 04/23/19 03:07 36.9 C 76 18 168/92 H 97 04/22/19 23:03 36.9 C 78 18 178/95 H 93
[2019-04-23] MEDS ORDERED: POTASSIUM CHLORIDE 20 MEQ TABCR PO SCH (09:15)
[2019-04-23] MEDS: CARVEDILOL 3.125 MG TAB PO SCH (09:20)
[2019-04-23] MEDS: CARVEDILOL 12.5 MG TAB PO SCH ×2 (10:03→20:50)
[2019-04-23] MEDS ORDERED: HYDROmorphone INJ 0.5 MG/0.5 ML SYR IV STA (13:33)
[2019-04-23] MEDS: PSYLLIUM 58.6% POWDER PACKET PO SCH (14:04)
[2019-04-23] MEDS: HydrALAZINE HCL 20 MG/ML VIAL IV PRN (14:05)
--- NOTE | 2019-04-23 14:16 | Hospitalist Progress Note ---
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 Nieves, depression with anxiety, migraine, diet-controlled type 2 diabetes mellitus, chronic anemia and history of atypical chest pain who presents with intermittent chest pain x 5 days. -Intermittent CP central with left radiation lasting 20 minutes- 1 day -Cardiology has evaluated patient in the past and felt CP was not angina, however troponin elevated at 0.438 (baseline trop ~ 0.09) -EKG with prolonged QTc of 571. No other acute ischemic changes. CXR with moderate cardiomegaly. Otherwise negative study -Most recent 2D echo from Jul 2018 with mild conc. 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 Nieves, depression with anxiety, migraine, diet-controlled type 2 diabetes mellitus, chronic anemia and history of atypical chest pain who presents with intermittent chest pain x 5 days. -Intermittent CP central with left radiation lasting 20 minutes- 1 day -Cardiology has evaluated patient in the past and felt CP was not angina, however troponin elevated at 0.438 (baseline trop ~ 0.09) -EKG with prolonged QTc of 571. No other acute ischemic changes. CXR with moderate cardiomegaly. Otherwise negative study -Most recent 2D echo from Jul 2018 with mild conc. LVH, EF: 50-55%, borderline global hypokinesis of left ventricle, mild MR -Trend troponin-Negative.2D echo: Low normal LV systolic function with borderline global hypokinesis, EF 50 to 55%, mild concentric LVH, mild MR, mild TR and pulmonary hypertension -Troponin mildly elevated may be secondary to end-stage renal disease -Doubt any cardiac origin of the troponin (3) ESRD (end stage renal disease) on dialysis: (4) Peritoneal dialysis catheter in place: S/p failed kidney transplant, follows closely with Dr. Nieves -Reports compliance with PD for the past 4 days -No abdominal pain or erythema/drainage of PD site -Continue calcium acetate, Sensipar, recently prescribed Renvela by nephro but has not started yet due to financial issues -Dialysis nurse not in house --nephro consult for PD vs HD tomorrow -Discussed with Dr. Jackson, the senior engineering team leader will have Peritoneal dialysis tonight (5) Prolonged QT interval: QTc of 571, prolonged at baseline -Monitor on telemetry -Avoid QT prolonging medications (6) HTN (hypertension): Slightly elevated at 154/78 -Continue home amlodipine, add PRN beta blockers if needed -High blood pressure is secondary to renal causes -Was on lisinopril before but has not been taking that right now -Discussed with senior engineering team leader, calcium channel pool has been increased to control blood pressure (7) Depression: Continue Zoloft DVT Ppx: SCDs for now Code status: FULL PCP: Luis Carlos Dispo: Observation telemetry. Plan to return home once medically stable. If the blood pressure remains controlled may be discharged tomorrow Subjective 04/22 Patient was seen and examined in telemetry unit She has been complaining of precordial chest pain 10 out of 10 with radiation to the left shoulder Denies any other symptoms associated with it Intact she has been sleeping through the pain Denies any shortness of breath and/or palpitation, no abdominal pain nausea and/or vomiting 04/23 The patient was seen and examined in telemetry unit Dobutamine stress echo was canceled due to very high blood pressure She still complains to have some atypical chest pain Denies any shortness of breath or palpitation with it Minimal abdominal pain dizziness Review of Systems Review of Systems: All systems reviewed and are unremarkable except as noted below Constitutional: + weakness Cardiovascular: + chest pain, + chest pain at rest and + radiating jaw, neck or arm pain; no dyspnea, no dyspnea at rest and no orthopnea Physical Exam Physical Exam: Sitting on the bed without any symptoms Constitutional: well developed, well nourished, + ill appearing and + obese Eyes: PERRL, conjunctivae normal, anicteric sclerae ENMT: external ear and nose normal, oropharynx normal Neck: trachea midline, no thyromegaly + thick neck Respiratory: normal respiratory effort; no respiratory distress Auscultation: + diminished lung sounds and + crackles (Minimal crackles at the bases) Cardiovascular: Rate/Rhythm: regular rate Heart Sounds: normal S1 and normal S2; no gallop and no murmur Palpation: normal PMI Vessels: femoral pulses present Extremities: + edema (Trace edema bilateral) Gastrointestinal (Abdomen): Inspection/Auscultation: abdomen normal to inspection Percussion/Palpation: abdomen soft; no hepatosplenomegaly Musculoskeletal: no cyanosis or clubbing, extremities motor strength 5/5 Neurologic: Alert, 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. Generally Lymphatic: no cervical or axillary lymphadenopathy Results & Data Vital Signs (Past 12 Hours) Vital Signs Temp Pulse Resp BP Pulse Ox 04/23/19 10:58 36.5 C 82 18 169/95 H 98 04/23/19 08:30 144/104 H 04/23/19 07:37 181/114 H 04/23/19 07:34 37.1 C 89 20 194/114 H 98 04/23/19 03:07 36.9 C 76 18 168/92 H 97 Laboratory Results Short CBC 04/22/19 04/23/19 Range/Units 18:55 05:49 WBC 7.62 6.65 (4.8-10.8) K/uL Hgb 7.8 L 8.6 L (12.0-16.0) g/dL Hct 23.1 L 25.2 L (37-47) % Plt Count 124 L 138 (130-400) K/uL BMP 04/23/19 05:49 Sodium 131 L Potassium 3.3 L Chloride 94 L Carbon Dioxide 25 BUN 54 H Creatinine 12.80 H* D Glucose 147 H Calcium 8.5 D Medications Administered Current Inpatient Medications Acetaminophen (Tylenol) 650 mg PO Q4H PRN PRN Reason: Pain or Fever Stop: 05/21/19 19:33 Albuterol (Ventolin Hfa) 2 puffs INH QID PRN PRN Reason: Shortness Of Breath Or Wheezing Stop: 05/21/19 19:33 Amlodipine Besylate (Norvasc) [facility] [place] Stop: 05/22/19 08:59 Last Admin: 04/23/19 08:06 Dose: 10 mg Documented by: Calcium Acetate (Phoslo) 2,668 mg PO PRN PRN PRN Reason: SNACKS Stop: 05/21/19 19:33 Calcium Acetate (Phoslo) 3,335 mg PO TIDM [facility] Stop: 05/22/19 07:59 Last Admin: 04/23/19 11:42 Dose: 3,335 mg Documented by: Calcium Acetate (Phoslo) 1,334 mg PO PRN PRN PRN Reason: WHEN DRINKING DARK SODAS Stop: 05/21/19 19:33 Carvedilol (Coreg) 12.5 mg PO BID [facility] Stop: 05/23/19 09:14 Last Admin: 04/23/19 10:03 Dose: 12.5 mg Documented by: Famotidine (Pepcid) 40 mg PO DAILY [facility] Stop: 05/22/19 08:59 Last Admin: 04/23/19 08:08 Dose: 40 mg Documented by: Gabapentin (Neurontin) 400 mg PO QAM [facility] Stop: 05/22/19 08:59 Last Admin: 04/23/19 08:06 Dose: 400 mg Documented by: Gabapentin (Neurontin) 400 mg PO QDL [facility] Stop: 05/22/19 11:29 Last Admin: 04/23/19 11:42 Dose: 400 mg Documented by: Gabapentin (Neurontin) 800 mg PO HS [facility] Stop: 05/21/19 20:59 Last Admin: 04/22/19 20:09 Dose: 800 mg Documented by: Hydralazine HCl (Hydralazine Hcl) 10 mg IV Q6H PRN PRN Reason: SBP above 170 Stop: 05/21/19 20:31 Last Admin: 04/23/19 14:05 Dose: 10 mg Documented by: Promethazine HCl 12.5 mg/ (Sodium Chloride) 50.5 mls @ 202 mls/hr IV Q6H PRN PRN Reason: Nausea And Vomiting Stop: 05/22/19 23:18 Last Infusion: 04/23/19 08:48 Dose: Infused Documented by: Loratadine (Claritin) 10 mg PO HS PRN PRN Reason: Allergy Symptoms Stop: 05/21/19 19:33 Mirtazapine (Remeron) 30 mg PO HS [facility] Stop: 05/21/19 20:59 Last Admin: 04/22/19 20:08 Dose: 30 mg Documented by: Miscellaneous (Order Awaiting Action) 1 ea N/A QS [facility] Stop: 05/22/19 00:00 Last Admin: 04/23/19 14:06 Dose: Not Given Documented by: Nitroglycerin (Nitrostat) 0.4 mg SL UD PRN PRN Reason: Chest Pain Stop: 05/21/19 19:33 Psyllium Hydrophilic Mucilloid (Metamucil) 1 pkt PO QAM [facility] Stop: 05/23/19 13:44 Last Admin: 04/23/19 14:04 Dose: 1 pkt Documented by: Sertraline HCl (Zoloft) 50 mg PO QAM [facility] Stop: 05/22/19 08:59 Sevelamer HCl (Renagel) 1,600 mg PO TIDM [facility] Stop: 05/22/19 07:59 Last Admin: 04/23/19 11:42 Dose: 1,600 mg Documented by: (1) HTN (hypertension) Hypertension type: essential hypertension Qualified Code(s): I10 - Essential (primary) hypertension (2) Depression Depression Type: unspecified Qualified Code(s): F32.9 - Major depressive disorder, single episode, unspecified
--- NOTE | 2019-04-23 16:39 | Nephrology Progress Note ---
Date of Service April 23, 2019 Assessment & Plan (1) ESRD (end stage renal disease) on dialysis: Patient with ESRD on PD now admitted with chest pain. She tolerated PD last night. Initial drain was bloody but effluent this morning was clear. We will do cycled PD tonight for 6 exchanges, fill volume of 2500 mL over 12 hours using 2.5% dextrose. Continue potassium chloride 40 mEq daily. (2) Anemia due to end stage renal disease: Hemoglobin of 7 today partly due to hemodilution. Patient received Procrit yesterday. Monitor and transfuse as needed for hemoglobin less than 7 (3) HTN (hypertension): Blood pressure is above target. I increased Coreg to 12.5 mg twice daily. Control pain (4) Atypical chest pain: Patient with atypical chest pain and states a positive troponin. She is being evaluated by cardiology for possible cardiac etiology. She is planned for stress echocardiogram. No evidence of volume overload on chest x-ray. Subjective ESRD patient seen in follow-up during morning rounds. She had cycled PD last night. Initial drain was bloody but effluent this morning was clear. Patient complaining of lower abdominal pain. No vomiting but she had nausea. No fever. She had total UF of 2.5 L. Review of Systems Review of Systems: All systems reviewed & are unremarkable except as noted in HPI & below Physical Exam Physical Exam: General exam: Appears comfortable, no acute distress HEENT: Pupils are equal and reactive to light Neck: No JVD, neck is supple trachea is midline Respiratory system: Clear breath sounds bilaterally. Gastrointestinal: Abdomen is soft, non distended, tenderness in the suprapubic area and iliac fossa, bowel sounds are present. PD catheter present CVS: Regular rate and rhythm. No murmurs, rubs or gallops Musculoskeletal: No joint or muscle tenderness Extremities: Non tender, no edema, peripheral pulses are present Neuro: Oriented, no tremors, no focal neurological deficits Skin: No rashes Access: Left upper arm AV fistula with good bruit Results & Data Vital Signs (Past 12 Hours) Vital Signs Temp Pulse Resp BP Pulse Ox 04/23/19 10:58 36.5 C 82 18 169/95 H 98 04/23/19 08:30 144/104 H 04/23/19 08:00 37.1 C 89 20 04/23/19 07:37 181/114 H 04/23/19 07:34 37.1 C 89 20 194/114 H 98 Laboratory Results Laboratory Results - last 24 hr 04/22/19 04/23/19 04/23/19 18:55 05:49 05:49 WBC 7.62 6.65 RBC 2.46 L 2.71 L Hgb 7.8 L 8.6 L Hct 23.1 L 25.2 L MCV 93.9 93.0 MCH 31.7 31.7 MCHC 33.8 34.1 RDW Std Deviation 48.9 H 49.3 H RDW Coeff of Laith 14.9 H 15.0 H Plt Count 124 L 138 MPV 8.2 9.1 Immature Gran % (Auto) 0.3 0.3 Neut % (Auto) 70.5 71.4 Lymph % (Auto) 15.9 14.3 Ransom % (Auto) 4.6 5.1 Eos % (Auto) 8.3 8.4 Baso % (Auto) 0.4 0.5 Immature Gran # (Auto) 0.02 0.02 Neut # (Auto) 5.38 4.75 Lymph # (Auto) 1.21 0.95 L Ransom # (Auto) 0.35 0.34 Eos # (Auto) 0.63 H 0.56 H Baso # (Auto) 0.03 0.03 Polychromasia 1+ Basophilic Stippling 1+ Ovalocytes 1+ Sodium 131 L Potassium 3.3 L Chloride 94 L Carbon Dioxide 25 Anion Gap 12.0 H BUN 54 H Creatinine 12.80 H* D Est Cr Clr Drug Dosing 7.6 Est GFR ( Amer) 3.9 Est GFR (Non-Af Amer) 3.4 BUN/Creatinine Ratio 4.2 L Glucose 147 H Calcium 8.5 D Magnesium 1.9 Specimen Hemolysis (1) HTN (hypertension) Hypertension type: essential hypertension Qualified Code(s): I10 - Essential (primary) hypertension
[2019-04-23] MEDS: ACETAMINOPHEN 1,000 MG/100 ML VIAL IV PRN (17:16)
[2019-04-23] MEDS: MIRTAZAPINE TAB 15 MG TAB PO SCH (20:51)
[2019-04-23] MEDS: TRAMADOL HCL 50 MG TABLET PO PRN (22:05)
[2019-04-23 22:40] LABS: Albumin Globulin Ratio 0.6 (0.9-2); Albumin Level 2.5 gm/dl (3.4-5.0); BUN Creatinine Ratio 4.5 (10-20); Bilirubin,Total 0.3 mg/dl (0.2-1); Calcium 8.6 mg/dl (8.5-10.1); Creatinine Clr Calc Pharmacy 7.5 ml/min; Est GFR (African American) 3.9; Est GFR (Non-African American) 3.4; Magnesium 1.9 mg/dl (1.8-2.4); Potassium 3.3 mmol/L (3.5-5.1); Total Protein 6.5 gm/dl (6.4-8.2)
--- NOTE | 2019-04-23 23:04 | CT Scan Report ---
CT abd pelvis wo con CLINICAL HISTORY: 33 years-old Female presenting with abd pain, sharp mid abdominal pain. TECHNIQUE: Multidetector CT of the abdomen and pelvis was performed without the use of intravenous co ntrast. IV contrast: None. One or more dose lowering techniques were used consistent with the princip les of ALARA (as low as reasonably achievable), including automatic exposure control, mA or kV adjust ment to individual patient size, and/or use of iterative reconstruction. COMPARISON: 08/26/2018. CT DOSE (mGy.cm): The estimated cumulative dose is 1421.97 mGy.cm. FINDINGS: Plastic Finisher topogram: Unremarkable. Lung bases: Multichamber enlargement of the heart. Coronary artery calcification. No pericardial or p leural effusion. Patchy groundglass opacity versus mosaic attenuation in the lungs. Evaluation of the lung bases degraded by respiratory motion artifact. Liver: Normal morphology. Normal density. Biliary: No gross biliary ductal dilatation allowing for noncontrast technique. Gallbladder surgicall y absent. Pancreas: Normal noncontrast appearance. Spleen: Normal noncontrast appearance. Adrenal glands: Normal noncontrast appearance. Kidneys and ureters: Severely atrophic [place] kidneys. Calcified transplant kidney in the right lower quadrant noted. No nephrolithiasis or hydronephrosis. Ureters nondistended. Bladder: Incompletely evaluated secondary to underdistention. Pelvic organs: Uterus and ovaries normal. Hyperdensity extending posteriorly and inferiorly from the right ovary may represent clot. However, no convincing evidence of hemoperitoneum more dependently in the pelvis. Bowel: A few diverticula scattered in the left colon. The appendix is normal. No bowel obstruction. Peritoneal cavity: Moderate volume simple appearing ascites likely related to peritoneal dialysis cat heter and similar to prior exam. The catheter is loosely coiled in the anterior right pelvis. Again, no evidence of hemoperitoneum in the dependent pelvis. No free intraperitoneal gas. Lymph nodes: No gross lymphadenopathy allowing for noncontrast technique. Vasculature: Atherosclerosis of the normal caliber abdominal aorta. Abdominal wall: Fluid and gas containing umbilical hernia. The peritoneal dialysis catheter is in manan ce. Nonspecific skin thickening in the lower pannus. Musculoskeletal: Normal. IMPRESSION: 1. Apparent high density material arising from or immediately adjacent to the right ovary could rais e concern for clot potentially in the setting of a hemorrhagic cyst or blood products related to ovul ation. However, no dependent high density material in the pelvis to suggest hemoperitoneum. This is i ndeterminate and would be better characterized with pelvic ultrasound. 2. Otherwise allowing for noncontrast technique, no acute intra-abdominal pathology. 3. Moderate volume ascites related to the peritoneal dialysis catheter. 4. Severely atrophic [place] kidneys and calcified nonviable right lower quadrant transplant kidney. Electronically signed by: Hany Moreno M.D. 04/23/2019 11:03 PM
--- NOTE | 2019-04-23 23:43 | Hospitalist Progress Note ---
Date of Service April 23, 2019 Subjective Made aware by RN of worsening abdominal pain complaints. Good BM yesterday. Lower right-sided abdominal pain going to the left. PPE Abdominal distention, hypogastric tenderness CT Abd pelvis 1. Apparent high density material arising from or immediately adjacent to the right ovary could raise concern for clot potentially in the setting of a hemorrhagic cyst or blood products related to ovulation. However, no dependent high density material in the pelvis to suggest hemoperitoneum. This is indeterminate and would be better characterized with pelvic ultrasound. 2. Otherwise allowing for noncontrast technique, no acute intra-abdominal pathology. 3. Moderate volume ascites related to the peritoneal dialysis catheter. 4. Severely atrophic [place] kidneys and calcified nonviable right lower quadrant transplant kidney. Pelvic ultrasound: Possible uterine fibroid, endometrial stripe about 7 mm. Right ovary not well visualized although there appears to be blood flow to bilateral ovaries. Difficult to measure right ovary as it is adjacent/possibly attached to complex irregularly-shaped mass/hyperdensity in the region of right ovary on recent CT. Left ovary unremarkable. Prominent free fluid with suggestion of internal echoes may be related to peritoneal dialysis. AP Abdominal pain ddx : Gynecologic ? Recurrent ovarian cyst rupture Dialysis peritonitis, patient not septic Gynecology eval May need work-up for dialysis peritonitis pending gynecologic eval. Will relay to AM provider. Results & Data Vital Signs (Past 12 Hours) Vital Signs Temp Pulse Pulse Resp BP Pulse Ox 04/23/19 23:04 36.6 C 79 18 163/89 H 96 04/23/19 23:03 79 04/23/19 19:50 36.9 C 82 18 139/71 96 04/23/19 16:55 36.8 C 77 18 139/83 98
[2019-04-24] MEDS: HYDROmorphone INJ 0.5 MG/0.5 ML SYR IV PRN ×4 (00:35→22:02)
[2019-04-24 02:25] LABS: Pregnancy Test, Serum Negative (Negative)
[2019-04-24] MEDS: ACETAMINOPHEN 1,000 MG/100 ML VIAL IV PRN (02:37)
[2019-04-24] MEDS ORDERED: DEXTROSE 5% 1,000 ML IV PRN (04:15)
--- NOTE | 2019-04-24 04:23 | OB/GYN Consultation ---
Date of Consultation April 24, 2019 Assessment & Plan (1) RLQ abdominal pain: 33 yo female with LMP of 03/23/19, RLQ pain, CT and US suggesting small 3 cm complex cyst of RO, most likely a physiologic corpus luteum cyst VSS Afebrile Pelvic exam normal, CT with no hemoperitoneum, stable H7H, unlikely she has bleeding cyst Recommend repeat US in 6-8 weeks after her period H/O Abnormal pap/ LGSIL: collected her pap smear today, will follow Recommend outpatient f/u Plan per medicine Thank you for the consult (2) History of abnormal cervical Papanicolaou smear: (3) Corpus luteum cyst of right ovary: History of Present Illness Reason for Consultation: RLQ pain Attending Physician: Juan Victor MD History of Present Illness Patient is a 33 yo female with LMP of 03/23/19 She is admitted for Chest pain,h/o renal transplant and failure, peritoneal dialysis She started to have RLQ/ lower abdominal pain yesterday It comes and goes, sometimes mild sometimes severe She denies pain now No fever/ chills/ N&V/ vaginal discharge/ odor/ bleeding She is comfortably talking and in no pain She had 2 C sections for macrosomic babies and tubal ligation She has been with same partner for 3 years but she has not been with him for a while. She has h/o abnormal pap smear in 08/2017, LGSIL but she has not been to office for colposcopy since then She had to cancel appointments many times and forgot about it She denies any possibility of STD's She agreed for pelvic exam, pap smear but declined Chlamydia screening Allergies Allergy/AdvReac Type Severity Reaction Status Date / Time cefaclor Allergy Intermediate Rash Verified 04/21/19 17:25 amoxicillin AdvReac Mild VOMITING Verified 04/21/19 17:25 clavulanic acid AdvReac Mild VOMITING Verified 04/21/19 17:25 Home Medications Home Medications Medication Instructions Recorded Confirmed Type albuterol sulfate [Ventolin HFA] 2 puff INHALATION QID PRN 05/30/18 04/21/19 History calcium acetate 2,668 mg PO DIRECTED 05/30/18 04/21/19 History calcium acetate 3,335 mg PO TIDM 05/30/18 04/21/19 History sertraline [Zoloft] 50 mg PO QAM 05/30/18 04/21/19 History sumatriptan succinate [Imitrex] 50 mg PO DIRECTED PRN MDD 100 05/30/18 04/21/19 History MG/24 HOURS loratadine 10 mg PO HS PRN 07/30/18 04/21/19 History mirtazapine 30 mg PO HS 10/08/18 04/21/19 History amlodipine [Norvasc] 10 mg PO QAM 11/03/18 04/21/19 History cinacalcet [Sensipar] 30 mg PO QPM 11/03/18 04/21/19 History gabapentin [Neurontin] 400 mg PO QAM 11/03/18 04/21/19 History gabapentin [Neurontin] 800 mg PO HS 11/26/18 04/21/19 History acetaminophen [Tylenol Extra 1,000 mg PO Q6H PRN 12/04/18 04/21/19 History Strength] calcium acetate 1,334 mg PO DIRECTED 01/24/19 04/21/19 History gabapentin 400 mg PO QDL 01/24/19 04/21/19 History carvedilol 6.25 mg PO BID 04/21/19 04/21/19 History famotidine [Pepcid] 40 mg PO DAILY 04/21/19 04/21/19 History sevelamer carbonate 1,600 mg PO TIDM 04/21/19 04/21/19 History Patient History Medical History Fistula of artery (Chronic) Diastolic CHF (Chronic) "echo 04/18/17 - EF 60-65%, grade II diastolic dysfunction" FSGS (focal segmental glomerulosclerosis) (Chronic) DM2 (diabetes mellitus, type 2) (Chronic) HTN (hypertension) (Chronic) CKD (chronic kidney disease) stage V requiring chronic dialysis (Chronic) Peritoneal dialysis catheter in place (Chronic) Dependence on peritoneal dialysis (Acute) Depression (Chronic) Surgical History H/O knee surgery (Resolved) H/O: (Resolved) H/O tubal ligation (Resolved) H/O eye surgery (Resolved) H/O section (Resolved) History of cholecystectomy (Resolved) H/O hernia repair (Resolved) Family History Grandmother Hx of CABG Mother Diabetes Father Crohn's disease Social History Preferred Language: Ethiopian Communication Ability: Effective Barrel Charrer Helper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 Beliefs That Will Affect Care: None Current Living Situation: Family and Significant Other Current Living Situation Comment: [facility] Other Information That Helps Us Care for You: No Feels Safe at Home: Yes Safety Concerns: Feels Safe At This Time Smoking Status: Current every day smoker Tobacco Type: cigarettes ; Cigarettes Per Day: 10 ; Do You Dip or Chew Tobacco: No ; Second Hand Exposure: No ; Tobacco Cessation Education Requested by Patient: No Hx Alcohol Use: Yes Hx Substance Use: No Review of Systems Review of Systems: All systems reviewed & are unremarkable except as noted in HPI & below Constitutional: as per Subjective / HPI Physical Exam Constitutional: WD/WN, vitals as above well developed and well nourished Not in distress Gastrointestinal (Abdomen): normal bowel sounds, soft, nontender, no hepatosplenomegaly Mild RLQ tenderness, no rebound, soft Genitourinary: no vaginal lesions, no adnexal mass normal external appearance Speculum/Bimanual Exam: normal bimanual exam SSE: Vagina pink moist, no d/c, no blood Cervix: nullipar, clean, no d/c, pap smear was collected No CMT Uterus AV, NT, normal size, Adnexa:CONFERENCE CENTER COORDINATOR, NT Results & Data Vital Signs (Past 12 Hours) Vital Signs Temp Pulse Pulse Resp BP Pulse Ox 04/23/19 23:04 36.6 C 79 18 163/89 H 96 04/23/19 23:03 79 04/23/19 19:50 36.9 C 82 18 139/71 96 04/23/19 16:55 36.8 C 77 18 139/83 98
[2019-04-24 05:27] LABS: Basophils # (auto) 0.02 K/uL (0-0.2); Basophils % (auto) 0.3 %; Eosinophils # (auto) 0.59 K/uL (0-0.5); Eosinophils % (auto) 8.7 %; Hematocrit (blood only) 23.8 % (37-47); Hemoglobin 8.1 g/dL (12.0-16.0); Immature Granulocytes # (auto) 0.02 K/uL (0.00-0.02); Immature Granulocytes % (auto) 0.3 %; Lymphocytes % (auto) 16.2 %; Mean Corpuscular Hemoglobin 31.8 pg (25-34); Mean Corpuscular Volume 93.3 fL (80-100); Monocytes # (auto) 0.37 K/uL (0.11-0.59); Monocytes % (auto) 5.4 %; Neutrophils # (auto) 4.71 K/uL (1.4-6.5); Neutrophils % (auto) 69.1 %; Platelet Count 135 K/uL (130-400); RDW Standard Deviation 50.4 fL (36.4-46.3); Red Blood Count 2.55 M/uL (4.2-5.4); White Blood Count 6.81 K/uL (4.8-10.8)
[2019-04-24 06:21] LABS: BUN Creatinine Ratio 4.3 (10-20); Calcium 8.3 mg/dl (8.5-10.1); Creatinine Clr Calc Pharmacy 7.6 ml/min; Est GFR (Non-African American) 3.5; Potassium 3.4 mmol/L (3.5-5.1)
--- NOTE | 2019-04-24 07:29 | Ultrasound Report ---
US pelvic complete CLINICAL HISTORY: r abd pain, abn ct PAIN. NAUSEA. COMPARISON STUDY: CT study 04/23/2019 FINDINGS: The uterus measured 9 cm 1.2 cm anterior fundal fibroid.. The endometrial stripe measured 5 mm. The right ovary measured poorly seen. Complex heterogeneous structure right soft tissue pelvis measur ing up to 5 cm. The right ovary potentially is adherent.. The left ovary measured 3.3 cm with normal vascular flow. There is no ultrasonographic evidence of ovarian torsion. It should be noted that ovarian torsion can be present with normal Doppler ultrasonographic findings. Small moderate free pelvic fluid within the cul-de-sac. IMPRESSION: 1. A limited visibility of the right ovary which potentially is adherent and/or involved with a compl ex 5 x 4 cm collection/lesion within the right right soft tissue pelvis. 2. Small uterine fundal fibroid. 3. Normal left ovary. The above report was generated using voice recognition software. It may contain grammatical, syntax or spelling errors. Electronically signed by: Adolph Rizo M.D. 04/24/2019 7:28 AM
[2019-04-24] MEDS: TRAMADOL HCL 50 MG TABLET PO PRN ×3 (08:19→21:09)
[2019-04-24] MEDS: CALCIUM ACETATE 667 MG CAP PO SCH ×3 (08:20→16:22)
[2019-04-24] MEDS: GABAPENTIN 400 MG CAP PO SCH ×3 (08:22→21:13)
[2019-04-24] MEDS: SEVELAMER HCL 800 MG TABLET PO SCH ×3 (08:22→16:21)
[2019-04-24] MEDS: AMLODIPINE BESYLATE 5 MG TAB PO SCH (08:23)
[2019-04-24] MEDS: FAMOTIDINE 20 MG TAB PO SCH (08:23)
[2019-04-24] MEDS: PSYLLIUM 58.6% POWDER PACKET PO SCH (08:24)
[2019-04-24] MEDS: CARVEDILOL 12.5 MG TAB PO SCH ×2 (08:25→21:12)
[2019-04-24] MEDS: POTASSIUM CHLORIDE 20 MEQ TABCR PO SCH (08:54)
--- NOTE | 2019-04-24 09:04 | Cardiology Progress Note ---
Date of Service April 24, 2019 Assessment & Plan (1) Atypical chest pain: Symptoms do not sound anginal. No signs of pericardial effusion of significance on echocardiogram preserved LV function troponins are elevated low in a flat pattern. Minimal risk factors other than hypertension possible past administration of immunosuppressive therapy post transplant Atypical chest discomfort without recurrence no signs of myocardial ischemia by EKG No significant risk factors for ischemic heart disease Would recommend controlling blood pressure suspect will require multiple drug regimen, will defer to nephrology (2) Elevated troponin: Troponins are elevated but flat with history of chronic troponin elevation no signs of myocardial injury by echocardiogram with study unchanged from prior study (3) Anemia due to end stage renal disease: (4) Prolonged QT interval: Subjective . Abdominal pain slightly better today is having leg cramping possibly in association Patient seen and examined, chart, medications, telemetry reviewed. Patient with less discomfort today no chest pains, shortness of breath Blood pressure remains elevated Abdominal discomfort improved today having cramping legs and muscles with low potassium noted Physical Exam Constitutional: WD/WN, vitals as above Eyes: PERRL, conjunctivae normal, anicteric sclerae ENMT: external ear and nose normal, oropharynx normal Neck: trachea midline, no thyromegaly + thick neck Respiratory: normal respiratory effort, lungs clear to auscultation Cardiovascular: Rate/Rhythm: regular rate Heart Sounds: normal S1 and normal S2; no gallop, no murmur and no cardiac rub Palpation: normal PMI Vessels: normal carotid upstroke and femoral pulses present; no JVD, no carotid bruit and no abdominal aortic bruit Extremities: no edema Gastrointestinal (Abdomen): Percussion/Palpation: abdomen soft; no hepatosplenomegaly Musculoskeletal: no cyanosis or clubbing, extremities motor strength 5/5 Results & Data Vital Signs (Past 12 Hours) Vital Signs Temp Pulse Pulse Resp BP Pulse Ox 04/24/19 08:15 78 04/24/19 07:15 36.7 C 74 20 172/98 H 98 04/24/19 04:44 36.8 C 74 18 158/78 H 95 04/23/19 23:04 36.6 C 79 18 163/89 H 96 04/23/19 23:03 79 Laboratory Results Laboratory Results - last 24 hr 04/23/19 04/23/19 04/24/19 13:28 21:58 04:53 WBC 6.81 RBC 2.55 L Hgb 8.1 L Hct 23.8 L MCV 93.3 MCH 31.8 MCHC 34.0 RDW Std Deviation 50.4 H RDW Coeff of Laith 15.0 H Plt Count 135 MPV 9.0 Immature Gran % (Auto) 0.3 Neut % (Auto) 69.1 Lymph % (Auto) 16.2 [place] % (Auto) 5.4 Eos % (Auto) 8.7 Baso % (Auto) 0.3 Immature Gran # (Auto) 0.02 Neut # (Auto) 4.71 Lymph # (Auto) 1.10 L [place] # (Auto) 0.37 Eos # (Auto) 0.59 H Baso # (Auto) 0.02 Sodium 132 L Potassium 3.3 L Chloride 95 L Carbon Dioxide 26 Anion Gap 11.0 BUN 57 H Creatinine 12.80 H* Est Cr Clr Drug Dosing 7.5 Est GFR ( Amer) 3.9 Est GFR (Non-Af Amer) 3.4 BUN/Creatinine Ratio 4.5 L Glucose 129 H Calcium 8.6 Magnesium 1.9 Total Bilirubin 0.3 AST 14 L ALT 17 Alkaline Phosphatase 111 Total Protein 6.5 Albumin 2.5 L Globulin 4.0 Albumin/Globulin Ratio 0.6 L Lipase 159 HCG, Qual Negative 04/24/19 04:53 WBC RBC Hgb Hct MCV MCH MCHC RDW Std Deviation RDW Coeff of Laith Plt Count MPV Immature Gran % (Auto) Neut % (Auto) Lymph % (Auto) [place] % (Auto) Eos % (Auto) Baso % (Auto) Immature Gran # (Auto) Neut # (Auto) Lymph # (Auto) [place] # (Auto) Eos # (Auto) Baso # (Auto) Sodium 130 L Potassium 3.4 L Chloride 94 L Carbon Dioxide 25 Anion Gap 11.0 BUN 54 H Creatinine 12.50 H* D Est Cr Clr Drug Dosing 7.6 Est GFR ( Amer) 4.0 Est GFR (Non-Af Amer) 3.5 BUN/Creatinine Ratio 4.3 L Glucose 119 H Calcium 8.3 L Magnesium Total Bilirubin AST ALT Alkaline Phosphatase Total Protein Albumin Globulin Albumin/Globulin Ratio Lipase HCG, Qual
--- NOTE | 2019-04-24 14:32 | Hospitalist Progress Note ---
Date of Service April 24, 2019 Assessment & Plan (1) Chest pain: This is a 33yo F with a PMH of ESRD s/p failed renal transplant 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 Nieves, depression with anxiety, migraine, diet-controlled type 2 diabetes mellitus, chronic anemia and history of atypical chest pain who presents with intermittent chest pain x 5 days. Atypical chest pain: per Dr. Victor's notes: -Intermittent CP central with left radiation lasting 20 minutes- 1 day -Cardiology has evaluated patient in the past and felt CP was not angina, however troponin elevated at 0.438 (baseline trop ~ 0.09) -EKG with prolonged QTc of 571. No other acute ischemic changes. CXR with moderate cardiomegaly. Otherwise negative -2D echo: Low normal LV systolic function with borderline global hypokinesis, EF 50 to 55%, mild concentric LVH, mild MR, mild TR and pulmonary hypertension -troponins elevated but stayed at 12 -EKG has prolonged QT which has been improved - Cardiology SVC consulted- no further testing at this time Elevated troponin: as noted above HTN (hypertension): Carvedilol increased monitor BP Abdominal Pain, likely secondary to Ruptured Ovarian Cyst CT no hemoperitoneum monitor H&H PRN Tramadol repeat US in 6-8 weeks ESRD (end stage renal disease) on dialysis: Peritoneal dialysis catheter in place: S/p failed kidney transplant, follows closely with Dr. Nieves -No abdominal pain or erythema/drainage of PD site -Concrete Pipe Making Machine Operator consulted Prolonged QT interval: QTc of 571, prolonged at baseline -Monitor on telemetry -Avoid QT prolonging medications Depression: Continue Zoloft DVT Ppx: SCDs for now Code status: FULL PCP: Luis Carlos Dispo: discharge to home when medically stable, BP stable, abdominal pain resolved Subjective ff up for chest pain, abdominal pain seen resting in bed, sleeping but easily awakened seen with RN Mary at the bedside not in distress, no obvious signs of discomfort states she has 8/10 pain on the right lower abdomen, sharp, constant relieved by Tramadol denies chest pain, dyspnea, palpitations, dizziness no nausea/vomiting, fever/chills denies other symptoms Review of Systems Review of Systems: All systems reviewed & are unremarkable except as noted in HPI & below Physical Exam Physical Exam: General- oriented x 3, not in distress, speaks in sentences with no effort or accessory muscle use Eyes- anicteric Neck- no JVD Lungs- clear breath sounds bilaterally, no rales/wheezes Heart- normal rate, regular rhythm; no murmurs Abdomen- normal bowel sounds, nondistended, soft, mild RLQ tenderness Extremities- no pretibial edema, no calf tenderness Neuro- alert, oriented x 3; no gross focal neurologic deficits Skin- warm & dry Results & Data Vital Signs (Past 12 Hours) Vital Signs Temp Pulse Pulse Resp BP Pulse Ox 04/24/19 11:44 36.8 C 75 16 164/97 H 93 04/24/19 10:17 74 156/89 H 04/24/19 08:15 78 04/24/19 07:15 36.7 C 74 20 172/98 H 98 04/24/19 04:44 36.8 C 74 18 158/78 H 95 Laboratory Results Laboratory Results - last 24 hr 04/23/19 04/23/19 04/24/19 13:28 21:58 04:53 WBC 6.81 RBC 2.55 L Hgb 8.1 L Hct 23.8 L MCV 93.3 MCH 31.8 MCHC 34.0 RDW Std Deviation 50.4 H RDW Coeff of Laith 15.0 H Plt Count 135 MPV 9.0 Immature Gran % (Auto) 0.3 Neut % (Auto) 69.1 Lymph % (Auto) 16.2 [place] % (Auto) 5.4 Eos % (Auto) 8.7 Baso % (Auto) 0.3 Immature Gran # (Auto) 0.02 Neut # (Auto) 4.71 Lymph # (Auto) 1.10 L [place] # (Auto) 0.37 Eos # (Auto) 0.59 H Baso # (Auto) 0.02 Sodium 132 L Potassium 3.3 L Chloride 95 L Carbon Dioxide 26 Anion Gap 11.0 BUN 57 H Creatinine 12.80 H* Est Cr Clr Drug Dosing 7.5 Est GFR ( Amer) 3.9 Est GFR (Non-Af Amer) 3.4 BUN/Creatinine Ratio 4.5 L Glucose 129 H Calcium 8.6 Magnesium 1.9 Total Bilirubin 0.3 AST 14 L ALT 17 Alkaline Phosphatase 111 Total Protein 6.5 Albumin 2.5 L Globulin 4.0 Albumin/Globulin Ratio 0.6 L Lipase 159 HCG, Qual Negative 04/24/19 04:53 WBC RBC Hgb Hct MCV MCH MCHC RDW Std Deviation RDW Coeff of Laith Plt Count MPV Immature Gran % (Auto) Neut % (Auto) Lymph % (Auto) [place] % (Auto) Eos % (Auto) Baso % (Auto) Immature Gran # (Auto) Neut # (Auto) Lymph # (Auto) [place] # (Auto) Eos # (Auto) Baso # (Auto) Sodium 130 L Potassium 3.4 L Chloride 94 L Carbon Dioxide 25 Anion Gap 11.0 BUN 54 H Creatinine 12.50 H* D Est Cr Clr Drug Dosing 7.6 Est GFR ( Amer) 4.0 Est GFR (Non-Af Amer) 3.5 BUN/Creatinine Ratio 4.3 L Glucose 119 H Calcium 8.3 L Magnesium Total Bilirubin AST ALT Alkaline Phosphatase Total Protein Albumin Globulin Albumin/Globulin Ratio Lipase HCG, Qual
--- NOTE | 2019-04-24 17:03 | Nephrology Progress Note ---
Date of Service April 24, 2019 Assessment & Plan (1) ESRD (end stage renal disease) on dialysis: Patient with ESRD on PD now admitted with chest pain. She tolerated PD last night. She continues to have pink effluent likely in setting of ruptured corpus luteum cyst. We will do cycled PD tonight for 6 exchanges, fill volume of 2500 mL over 12 hours using 2.5% dextrose. Continue potassium chloride 40 mEq daily. (2) Anemia due to end stage renal disease: Hemoglobin of 8.1 today which is stable. Patient received Procrit yesterday. Monitor and transfuse as needed for hemoglobin less than 7 (3) HTN (hypertension): Blood pressure is above target. Consider starting lisinopril tomorrow if blood pressure is still high. Control pain (4) Atypical chest pain: Patient with atypical chest pain and states a positive troponin. She is being evaluated by cardiology for possible cardiac etiology. She is planned for stress echocardiogram likely as outpatient. No evidence of volume overload on chest x-ray. Subjective PD patient seen in follow-up during morning rounds. She continues to complain of lower abdominal pain. She was evaluated by manager benefit today. No fever. No vomiting or diarrhea. Pain is controlled with IV Tylenol. She continues to tolerate PD with net UF of 1.4 L last night Review of Systems Review of Systems: All systems reviewed & are unremarkable except as noted in HPI & below Physical Exam Physical Exam: General exam: Appears comfortable, no acute distress HEENT: Pupils are equal and reactive to light Neck: No JVD, neck is supple trachea is midline Respiratory system: Clear breath sounds bilaterally. Gastrointestinal: Abdomen is soft, non distended, non tender, bowel sounds are present. PD catheter present CVS: Regular rate and rhythm. No murmurs, rubs or gallops Musculoskeletal: No joint or muscle tenderness Extremities: Non tender, no edema, peripheral pulses are present Neuro: Oriented, no tremors, no focal neurological deficits Skin: No rashes Results & Data Vital Signs (Past 12 Hours) Vital Signs Temp Pulse Pulse Resp BP Pulse Ox 04/24/19 16:15 18 04/24/19 16:13 36.7 C 100 H 18 04/24/19 11:44 36.8 C 75 16 164/97 H 93 04/24/19 10:17 74 156/89 H 04/24/19 08:15 78 04/24/19 07:15 36.7 C 74 20 172/98 H 98 Laboratory Results Laboratory Results - last 24 hr 04/23/19 04/23/19 04/24/19 13:28 21:58 04:53 WBC 6.81 RBC 2.55 L Hgb 8.1 L Hct 23.8 L MCV 93.3 MCH 31.8 MCHC 34.0 RDW Std Deviation 50.4 H RDW Coeff of Laith 15.0 H Plt Count 135 MPV 9.0 Immature Gran % (Auto) 0.3 Neut % (Auto) 69.1 Lymph % (Auto) 16.2 [place] % (Auto) 5.4 Eos % (Auto) 8.7 Baso % (Auto) 0.3 Immature Gran # (Auto) 0.02 Neut # (Auto) 4.71 Lymph # (Auto) 1.10 L [place] # (Auto) 0.37 Eos # (Auto) 0.59 H Baso # (Auto) 0.02 Sodium 132 L Potassium 3.3 L Chloride 95 L Carbon Dioxide 26 Anion Gap 11.0 BUN 57 H Creatinine 12.80 H* Est Cr Clr Drug Dosing 7.5 Est GFR ( Amer) 3.9 Est GFR (Non-Af Amer) 3.4 BUN/Creatinine Ratio 4.5 L Glucose 129 H Calcium 8.6 Magnesium 1.9 Total Bilirubin 0.3 AST 14 L ALT 17 Alkaline Phosphatase 111 Total Protein 6.5 Albumin 2.5 L Globulin 4.0 Albumin/Globulin Ratio 0.6 L Lipase 159 HCG, Qual Negative 04/24/19 04:53 WBC RBC Hgb Hct MCV MCH MCHC RDW Std Deviation RDW Coeff of Laith Plt Count MPV Immature Gran % (Auto) Neut % (Auto) Lymph % (Auto) [place] % (Auto) Eos % (Auto) Baso % (Auto) Immature Gran # (Auto) Neut # (Auto) Lymph # (Auto) [place] # (Auto) Eos # (Auto) Baso # (Auto) Sodium 130 L Potassium 3.4 L Chloride 94 L Carbon Dioxide 25 Anion Gap 11.0 BUN 54 H Creatinine 12.50 H* D Est Cr Clr Drug Dosing 7.6 Est GFR ( Amer) 4.0 Est GFR (Non-Af Amer) 3.5 BUN/Creatinine Ratio 4.3 L Glucose 119 H Calcium 8.3 L Magnesium Total Bilirubin AST ALT Alkaline Phosphatase Total Protein Albumin Globulin Albumin/Globulin Ratio Lipase HCG, Qual Diagnostic Findings CT abdomen was reviewed (1) HTN (hypertension) Hypertension type: essential hypertension Qualified Code(s): I10 - Essential (primary) hypertension
[2019-04-24] MEDS: MIRTAZAPINE TAB 15 MG TAB PO SCH (21:13)
[2019-04-25] MEDS: TRAMADOL HCL 50 MG TABLET PO PRN (05:06)
[2019-04-25] MEDS: AMLODIPINE BESYLATE 5 MG TAB PO SCH (07:54)
[2019-04-25] MEDS: CALCIUM ACETATE 667 MG CAP PO SCH ×2 (07:54→11:10)
[2019-04-25] MEDS: CARVEDILOL 12.5 MG TAB PO SCH (07:54)
[2019-04-25] MEDS: GABAPENTIN 400 MG CAP PO SCH ×2 (07:55→11:11)
[2019-04-25] MEDS: FAMOTIDINE 20 MG TAB PO SCH (07:56)
[2019-04-25] MEDS: SEVELAMER HCL 800 MG TABLET PO SCH ×2 (07:56→11:11)
[2019-04-25] MEDS: POTASSIUM CHLORIDE 20 MEQ TABCR PO SCH (07:57)
[2019-04-25] MEDS: PSYLLIUM 58.6% POWDER PACKET PO SCH (07:58)
[2019-04-25] MEDS ORDERED: ACETAMINOPHEN 65 ML IV PRN (08:00)
[2019-04-25 09:10] LABS: BUN Creatinine Ratio 3.8 (10-20); Creatinine Clr Calc Pharmacy 7.8 ml/min; Est GFR (African American) 4.1; Est GFR (Non-African American) 3.6; Potassium 3.8 mmol/L (3.5-5.1)
--- NOTE | 2019-04-25 11:18 | Hospitalist Progress Note ---
Date of Service April 25, 2019 Assessment & Plan (1) Chest pain: This is a 33yo F with a PMH of ESRD s/p failed renal transplant 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 Nieves, depression with anxiety, migraine, diet-controlled type 2 diabetes mellitus, chronic anemia and history of atypical chest pain who presents with intermittent chest pain x 5 days. Atypical chest pain: per Dr. Victor's notes: -Intermittent CP central with left radiation lasting 20 minutes- 1 day -Cardiology has evaluated patient in the past and felt CP was not angina, however troponin elevated at 0.438 (baseline trop ~ 0.09) -EKG with prolonged QTc of 571. No other acute ischemic changes. CXR with moderate cardiomegaly. Otherwise negative -2D echo: Low normal LV systolic function with borderline global hypokinesis, EF 50 to 55%, mild concentric LVH, mild MR, mild TR and pulmonary hypertension -troponins elevated but stayed at 12 -EKG has prolonged QT which has been improved - Cardiology SVC consulted- no further testing at this time Elevated troponin: as noted above HTN (hypertension): Carvedilol increased to 12.5mg po BID BP improved Abdominal Pain, secondary to Ruptured Ovarian Cyst CT no hemoperitoneum PRN Tramadol evaluated by Dr. Preston, repeat US in 6-8 weeks ESRD (end stage renal disease) on dialysis: Peritoneal dialysis catheter in place: S/p failed kidney transplant, follows closely with Dr. Nieves -No abdominal pain or erythema/drainage of PD site -Small Piece Cutter consulted continue ff up with Nephro Prolonged QT interval: - on admission, QTc of 571, prolonged at baseline - repeat QTc 482 - Avoid QT prolonging medications Depression: Continue Zoloft Dispo: discharge to home ff up with PCP in 3-5 days, scheduling office closed today, patient to be called for appointment on Saturday ff up with Nephro as scheduled ff up with Mutuel Teller Dr. Preston in 1-2 weeks, then 4-6 weeks for repeat US Subjective ff up for chest pain seen with ROSEY Red at the bedside sleeping but easily awakened states she feels fine overall denies chest pain, dyspnea denies abdominal pain no other symptoms states she is ready for discharge today Review of Systems Review of Systems: All systems reviewed & are unremarkable except as noted in HPI & below Physical Exam Physical Exam: General- oriented x 3, not in distress, speaks in sentences with no effort or accessory muscle use Eyes- anicteric Neck- no JVD Lungs- clear BS BL Heart- normal rate, regular rhythm; no murmurs Abdomen- normal bowel sounds, nondistended, soft, nontender Extremities- no pretibial edema, no calf tenderness Neuro- alert, oriented x 3; no gross focal neurologic deficits Skin- warm & dry Results & Data Vital Signs (Past 12 Hours) Vital Signs Temp Pulse Pulse Resp BP Pulse Ox 04/25/19 10:59 36.5 C 69 16 135/64 96 04/25/19 08:00 73 04/25/19 07:06 36.5 C 75 17 165/97 H 97 04/25/19 03:39 37.0 C 76 18 148/92 H 99 04/25/19 01:11 76 Laboratory Results Laboratory Results - last 24 hr 04/25/19 07:55 Sodium 132 L Potassium 3.8 Chloride 96 L Carbon Dioxide 27 Anion Gap 9.0 BUN 47 H Creatinine 12.30 H* Est Cr Clr Drug Dosing 7.8 Est GFR ( Amer) 4.1 Est GFR (Non-Af Amer) 3.6 BUN/Creatinine Ratio 3.8 L Glucose 134 H Calcium 9.0
[2019-04-25 11:41] LABS: Hematocrit (blood only) 23.5 % (37-47)
--- NOTE | 2019-04-25 11:48 | Discharge Summary ---
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 Nieves, depression with anxiety, migraine, diet-controlled type 2 diabetes mellitus, chronic anemia and history of atypical chest pain who presents with intermittent chest pain x 5 days. Describes chest pain as centrally located with radiation to left side described as 7/10, sharp and stabbing pain. No radiation to jaw or down left arm. Episodes last between 20 minutes and all day. Exacerbated with movement and less severe with rest. Took tylenol at home without relief. Received ntg spray x 2 en route without relief. Pain improved from 10/10 to 7/10 after being given tramadol and tylenol in the ED. Also developed headache and dizziness since today. Denies fever, chills, shortness of breath, nausea, vomiting or abdominal pain. Endorses chronic diarrhea. Does not make urine. States that she has been compliant with PD for the past 4 evenings and brought her sheet with her. Denies pain around PD cath side or erythema/drainage. In ED, found to be afebrile. BP 162/101. Troponin elevated at 0.438 (baseline trop ~ 0.09). EKG with prolonged qtc of 571. No other acute ischemic changes. CXR with moderate cardiomegaly. Otherwise negative study. Most recent 2D echo from Jul 2018 with mild conc. LVH, EF: 50-55%, borderline hypokinesis of left ventricle. Admission Exam Per Admitting Provider General Appearance: WD/WN, no apparent distress, resting comfortably Head: normocephalic, atraumatic Eyes: normal inspection, PERRL, EOMI ENT: hearing grossly normal, pharynx normal (moist mucous membranes) Neck: supple, no JVD, no adenopathy Respiratory/Chest: chest wall non-tender. Lungs clear to auscultation. No wheezes, rales or rhonchi. No respiratory distress or accessory muscle use Cardiovascular: regular rate, rhythm, no murmur, normal peripheral pulses, no BLE edema Abdomen/GI: normal bowel sounds, soft, non-tender to palpation, PD site at LLQ without erythema/drainage Extremities/Musculoskelatal: normal inspection, no calf tenderness, normal capillary refill, no pedal edema Neurologic/Psych: alert, normal mood/affect, oriented x 3 Skin: normal color, warm/dry Principal Diagnosis CHEST PAIN, ACUTE CORONARY SYNDROME RULED OUT; UNCONTROLLED HYPERTENSION Discharge Exam General- oriented x 3, not in distress, speaks in sentences with no effort or accessory muscle use Eyes- anicteric Neck- no JVD Lungs- clear BS BL Heart- normal rate, regular rhythm; no murmurs Abdomen- normal bowel sounds, nondistended, soft, nontender Extremities- no pretibial edema, no calf tenderness Neuro- alert, oriented x 3; no gross focal neurologic deficits Skin- warm & dry Discharge Data Allergies Allergy/AdvReac Type Severity Reaction Status Date / Time cefaclor Allergy Intermediate Rash Verified 04/21/19 17:25 amoxicillin AdvReac Mild VOMITING Verified 04/21/19 17:25 clavulanic acid AdvReac Mild VOMITING Verified 04/21/19 17:25 Consultations 04/21/19 17:39 ED Decision to Admit Stat 04/21/19 19:34 Consult Nephrology Routine 04/22/19 09:57 Consult Cardiology Routine 04/24/19 02:56 Consult Gynecology Routine Ordered Studies 04/23/19 21:52 CT abd pelvis wo con Urgent CLINICAL HISTORY: 33 years-old Female presenting with abd pain, sharp mid abdominal pain. TECHNIQUE: Multidetector CT of the abdomen and pelvis was performed without the use of intravenous contrast. IV contrast: None. One or more dose lowering techniques were used consistent with the principles of ALARA (as low as reasonably achievable), including automatic exposure control, mA or kV adjustment to individual patient size, and/or use of iterative reconstruction. COMPARISON: 08/26/2018. CT DOSE (mGy.cm): The estimated cumulative dose is 1421.97 mGy.cm. FINDINGS: [employer] Director topogram: Unremarkable. Lung bases: Multichamber enlargement of the heart. Coronary artery calcification. No pericardial or pleural effusion. Patchy groundglass opacity versus mosaic attenuation in the lungs. Evaluation of the lung bases degraded by respiratory motion artifact. Liver: Normal morphology. Normal density. Biliary: No gross biliary ductal dilatation allowing for noncontrast technique. Gallbladder surgically absent. Pancreas: Normal noncontrast appearance. Spleen: Normal noncontrast appearance. Adrenal glands: Normal noncontrast appearance. Kidneys and ureters: Severely atrophic white earth kidneys. Calcified transplant kidney in the right lower quadrant noted. No nephrolithiasis or hydronephrosis. Ureters nondistended. Bladder: Incompletely evaluated secondary to underdistention. Pelvic organs: Uterus and ovaries normal. Hyperdensity extending posteriorly and inferiorly from the right ovary may represent clot. However, no convincing evidence of hemoperitoneum more dependently in the pelvis. Bowel: A few diverticula scattered in the left colon. The appendix is normal. No bowel obstruction. Peritoneal cavity: Moderate volume simple appearing ascites likely related to pe ritoneal dialysis catheter and similar to prior exam. The catheter is loosely coiled in the anterior right pelvis. Again, no evidence of hemoperitoneum in the dependent pelvis. No free intraperitoneal gas. Lymph nodes: No gross lymphadenopathy allowing for noncontrast technique. Vasculature: Atherosclerosis of the normal caliber abdominal aorta. Abdominal wall: Fluid and gas containing umbilical hernia. The peritoneal dialysis catheter is in place. Nonspecific skin thickening in the lower pannus. Musculoskeletal: Normal. IMPRESSION: 1. Apparent high density material arising from or immediately adjacent to the right ovary could raise concern for clot potentially in the setting of a hemorrhagic cyst or blood products related to ovulation. However, no dependent high density material in the pelvis to suggest hemoperitoneum. This is indeterminate and would be better characterized with pelvic ultrasound. 2. Otherwise allowing for noncontrast technique, no acute intra-abdominal pathology. 3. Moderate volume ascites related to the peritoneal dialysis catheter. 4. Severely atrophic white earth kidneys and calcified nonviable right lower quadrant transplant kidney. 04/23/19 23:43 US pelvic complete CLINICAL HISTORY: r abd pain, abn ct PAIN. NAUSEA. COMPARISON STUDY: CT study 04/23/2019 FINDINGS: The uterus measured 9 cm 1.2 cm anterior fundal fibroid.. The endometrial stripe measured 5 mm. The right ovary measured poorly seen. Complex heterogeneous structure right soft tissue pelvis measuring up to 5 cm. The right ovary potentially is adherent.. The left ovary measured 3.3 cm with normal vascular flow. There is no ultrasonographic evidence of ovarian torsion. It should be noted that ovarian torsion can be present with normal Doppler ultrasonographic findings. Small moderate free pelvic fluid within the cul-de-sac. IMPRESSION: 1. A limited visibility of the right ovary which potentially is adherent and/or involved with a complex 5 x 4 cm collection/lesion within the right right soft tissue pelvis. 2. Small uterine fundal fibroid. 3. Normal left ovary. 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 Nieves, depression with anxiety, migraine, diet-controlled type 2 diabetes mellitus, chronic anemia and history of atypical chest pain who presents with intermittent chest pain x 5 days. Atypical chest pain: per Dr. Victor's notes: -Intermittent CP central with left radiation lasting 20 minutes- 1 day -Cardiology has evaluated patient in the past and felt CP was not angina, however troponin elevated at 0.438 (baseline trop ~ 0.09) -EKG with prolonged QTc of 571. No other acute ischemic changes. CXR with moderate cardiomegaly. Otherwise negative -2D echo: Low normal LV systolic function with borderline global hypokinesis, EF 50 to 55%, mild concentric LVH, mild MR, mild TR and pulmonary hypertension -troponins elevated but stayed at 12 -EKG has prolonged QT which has improved - Cardiology SVC consulted- no further testing at this time Elevated troponin: as noted above HTN (hypertension): Carvedilol increased to 12.5mg po BID BP improved monitor and follow up as outpatient Abdominal Pain, secondary to Ruptured Ovarian Cyst CT no hemoperitoneum evaluated by pigs feet cleaner, Dr. Preston H/O Abnormal pap/ LGSIL: Pap Smear collected, results pending recommend outpatient f/u repeat US in 6-8 weeks ESRD (end stage renal disease) on dialysis: Peritoneal dialysis catheter in place: S/p failed kidney transplant, follows closely with Dr. Nieves -No abdominal pain or erythema/drainage of PD site -Sales Receptionist consulted continue ff up with Nephro Prolonged QT interval: - on admission, QTc of 571, prolonged at baseline - repeat QTc 482 - Avoid QT prolonging medications monitor as outpatient Depression: Continue Zoloft Dispo: discharge to home ff up with PCP in 3-5 days, scheduling office closed today, patient to be called for appointment on Saturday ff up with Nephro as scheduled ff up with Warehouse Operations Manager Dr. Preston in 1-2 weeks, then 6-8 weeks for repeat US Total Time Total Time Spent Total Time Spent (In Minutes): 50 minutes Discharge Plan Discharge Items Patient Disposition: Home - Self-Care Reason For Visit: CHEST PAIN Discharge Diagnosis: CHEST PAIN, ELEVATED BLOOD PRESSURE Discharge Goals: Diagnostic testing and Therapeutic intervention Activity: As commented below Activity Comment: NO HEAVY EXERTION UNTIL RE-EVALUATED BY PRIMARY CARE PHYSICIAN Lifting: Wait until after follow-up appointment Exercise/Sports: Wait until after follow-up appointment Driving/Machine Use Comment: NO DRIVING UNTIL RE-EVALUATED BY PRIMARY CARE PHYSICIAN Non-emergency contact: Primary Care Provider Call non-emergency contact if: you have any medication questions, your symptoms worsen, your pain is not controlled, your pain is worsening, your pain is unusual for you and you have a fever Follow-up/Referrals: Adolph Aldridge MD [Primary Care Provider] - Russ Preston MD [Physician] - Diet: Heart Healthy Addtl Provider Instructions: PLEASE REVIEW YOUR NEW MEDICATION LIST AND FOLLOW INSTRUCTIONS CAREFULLY. MEDICATION CHANGE: CARVEDILOL INCREASED FROM 6.25MG BID TO CARVEDILOL 12.5MG PO BID CALL PRIMARY CARE PHYSICIAN OR RETURN TO THE ER IMMEDIATELY IF WITH RECURRENCE/WORSENING OF SYMPTOMS. DO NOT TAKE MORE THAN 3,00O MG OF TYLENOL WITHIN 24 HOURS. Prescriptions: New carvedilol 12.5 mg Tablet 12.5 mg PO BID 30 Days Qty: 60 RF: 2 potassium chloride 20 mEq tablet extended release 20 meq PO DAILY Qty: 30 RF: 1 Continued loratadine 10 mg tablet 10 mg PO HS PRN (Reason: Allergy Symptoms) RF: 0 gabapentin [Neurontin] 400 mg capsule 400 mg PO QAM RF: 0 cinacalcet [Sensipar] 30 mg tablet 30 mg PO QPM RF: 0 amlodipine [Norvasc] 5 mg tablet 10 mg PO QAM RF: 0 acetaminophen [Tylenol Extra Strength] 500 mg Tablet 1,000 mg PO Q6H PRN (Reason: Pain) RF: 0 sumatriptan succinate [Imitrex] 50 mg tablet 50 mg PO DIRECTED MDD 100 MG/24 HOURS PRN (Reason: Migraine Headache) RF: 0 albuterol sulfate [Ventolin HFA] 90 mcg/actuation HFA aerosol inhaler 2 puff Inhalation QID PRN (Reason: Shortness Of Breath Or Wheezing) RF: 0 sertraline [Zoloft] 50 mg tablet 50 mg PO QAM RF: 0 calcium acetate 667 mg capsule 3,335 mg PO TIDM RF: 0 calcium acetate 667 mg capsule 2,668 mg PO DIRECTED RF: 0 mirtazapine 30 mg Tablet 30 mg PO HS RF: 0 gabapentin [Neurontin] 400 mg capsule 800 mg PO HS RF: 0 calcium acetate 667 mg capsule 1,334 mg PO DIRECTED RF: 0 gabapentin 400 mg Capsule 400 mg PO QDL RF: 0 sevelamer carbonate 800 mg tablet 1,600 mg PO TIDM RF: 0 famotidine [Pepcid] 40 mg Tablet 40 mg PO DAILY RF: 0 Discontinued carvedilol 3.125 mg Tablet 6.25 mg PO BID RF: 0 Stand-Alone Forms: Call Back Authorization, [facility] Discharge Orders: Discharge Order (Routine); Ordered 04/25/19 Ordered By: Edmar Davis Admission Data Admit Date/Time: 04/24/19 11:14 Attending Provider: Edmar Davis Admit Provider: Ambreen Lutz Primary Care Provider: Adolph Aldridge Other Providers: Leah Nieves ; Ragini Glover ; Augie Ayala ; Farooq Ross ; Nelson Posada ; Juan Simons ; Anthony Calhoun ; Adolph Marrufo ; Jeny Salinas ; Netta Camacho ; Russ Preston ; Juan Victor Service: Telemetry Other Interventions: Discharge Summary Assessment (RN) Last Done: 04/25/19 12:10 DC Date/Time DO NOT enter until pt leaves facility: 04/25/19 13:10
--- NOTE | 2019-04-25 12:01 | Nephrology Progress Note ---
Date of Service April 25, 2019 Assessment & Plan (1) ESRD (end stage renal disease) on dialysis: Patient with ESRD on PD now admitted with chest pain. She tolerated PD last night. She continues to have pink effluent likely in setting of ruptured corpus luteum cyst>> she has had hemoperitoneum from this before and routinely uses heparin at home on PD to address this. She is for d/c today to home and should resume regular PD prescription. -she does not normally require K supplementation as OP but has needed it near daily as IP; K today 3.8 >recommend d/c on potassium chloride 20 mEq daily. (2) Anemia due to end stage renal disease: Hemoglobin of 8.o today which is stable. Patient received Procrit this admission; also has rx as OP; will f/u labs and adjust epo dose as OP (3) HTN (hypertension): Blood pressure is still generally above target. Her coreg has been increased here; her OP amlodipine will continue. Will monitor as OP and start lisinopril if needed or other med adjustments. (4) Atypical chest pain: Patient with atypical chest pain and a positive but flat troponin; no worrisome findings on TTE. Cardiology evaluated her; recommends focus on bp control, no f Subjective seen on rounds this am. denies current abd pain, sob, issues w/ dialysis exchanges; moving bowels and taking po. Review of Systems Review of Systems: All systems reviewed & are unremarkable except as noted in HPI & below Physical Exam Constitutional: well developed, well nourished and + obese on RA nontoxic appearing, maneuvers readily for exam Eyes: EOM intact bilaterally ENMT: Ears: no external ear abnormality Nose: no external nose abnormality Mouth: + dry oral mucous membranes Neck: no nuchal rigidity Respiratory: normal respiratory effort Auscultation: + diminished lung sounds Cardiovascular: Rate/Rhythm: regular rate and regular rhythm Extremities: + AV fistula; no edema Gastrointestinal (Abdomen): Inspection/Auscultation: normal bowel sounds Percussion/Palpation: abdomen soft; abdomen nontender PD catheter present Musculoskeletal: no cyanosis or clubbing, extremities motor strength 5/5 Extremities: strength 5/5 throughout Skin: no rashes, warm and dry Neurologic: sandy, fluent speech, no tremor Psychiatric: A+Ox3, euthymic affect Results & Data Vital Signs (Past 12 Hours) Vital Signs Temp Pulse Pulse Resp BP Pulse Ox 08/31/19 10:59 36.5 C 69 16 135/64 96 04/25/19 08:00 73 04/25/19 07:06 36.5 C 75 17 165/97 H 97 04/25/19 03:39 37.0 C 76 18 148/92 H 99 04/25/19 01:11 76 Laboratory Results Abnormal lab results 04/25/19 04/25/19 Range/Units 07:55 11:26 Hgb 8.0 L (12.0-16.0) g/dL Hct 23.5 L (37-47) % Sodium 132 L (136-145) mmol/L Chloride 96 L (98-107) mmol/L BUN 47 H (7-18) mg/dl Creatinine 12.30 H* (0.6-1.2) mg/dl BUN/Creatinine Ratio 3.8 L (10-20) Glucose 134 H (70-99) mg/dl (1) HTN (hypertension) Hypertension type: essential hypertension Qualified Code(s): I10 - Essential (primary) hypertension
== END 2019-04-25 13:10 | disposition home or self-care (01) | DRG 291 ==
LOC: 2E 15:53 → ED 15:53 → SUATTDRO 17:51 → 2E 18:38

== ENCOUNTER 2019-05-05 14:24 | Inpatient (IN) ==
[2019-05-05] MEDS ORDERED: methylPREDNISolone 125 MG/2 ML VIAL IV STA (14:36)
[2019-05-05] MEDS ORDERED: ALBUT/IPRATROP 3MG/0.5MG NEB 3 ML VIAL INH STA (14:36)
[2019-05-05 15:04] LABS: Hematocrit (blood only) 20.2 % (37-47); Hemoglobin 6.8 g/dL (12.0-16.0); Mean Corpuscular Hemoglobin 33.2 pg (25-34); Mean Corpuscular Hgb Conc 33.7 g/dL (32-36); Mean Corpuscular Volume 98.5 fL (80-100); Platelet Count 129 K/uL (130-400); RDW Coefficient of Variation 15.4 % (11.5-14.5); RDW Standard Deviation 55.7 fL (36.4-46.3); Red Blood Count 2.05 M/uL (4.2-5.4); White Blood Count 7.32 K/uL (4.8-10.8)
[2019-05-05] MEDS ORDERED: SODIUM CHLORIDE 0.9% 250 ML IV PRN ×2 (15:06→17:02)
[2019-05-05 15:09] LABS: Partial Thromboplastin Ratio 0.9; Partial Thromboplastin Time 24.8 Seconds (21.0-31.0); Prothrombin Time 10.6 Seconds (9.0-12.0)
[2019-05-05 15:16] LABS: Basophils # (auto) 0.01 K/uL (0-0.2); Basophils % (auto) 0.1 %; Eosinophils # (auto) 0.46 K/uL (0-0.5); Eosinophils % (auto) 6.3 %; Immature Granulocytes # (auto) 0.02 K/uL (0.00-0.02); Immature Granulocytes % (auto) 0.3 %; Lymphocytes % (auto) 12.3 %; Monocytes # (auto) 0.37 K/uL (0.11-0.59); Monocytes % (auto) 5.1 %; Neutrophils # (auto) 5.56 K/uL (1.4-6.5); Neutrophils % (auto) 75.9 %; Polychromasia 1+
[2019-05-05 15:21] LABS: Alanine Aminotransferase 17 U/L (12-78); Albumin Globulin Ratio 0.7 (0.9-2); Albumin Level 2.5 gm/dl (3.4-5.0); Alkaline Phosphatase 125 U/L (45-117); Aspartate Aminotransferase 16 U/L (15-37); BUN Creatinine Ratio 4.8 (10-20); Bilirubin,Total 0.4 mg/dl (0.2-1); Blood Urea Nitrogen 72 mg/dl (7-18); Calcium 7.8 mg/dl (8.5-10.1); Carbon Dioxide 23 mmol/L (21-32); Chloride 104 mmol/L (98-107); Creatine Kinase 56 U/L (26-192); Creatine Kinase MB < 1.0 ng/ml (0.5-3.6); Creatinine Clr Calc Pharmacy 7.7 ml/min; Est GFR (African American) 3.2; Est GFR (Non-African American) 2.8; Globulin 3.8 gm/dl (2.5-4.0); Glucose 85 mg/dl (70-99); Potassium 5.1 mmol/L (3.5-5.1); Sodium 140 mmol/L (136-145); Total Protein 6.3 gm/dl (6.4-8.2); Troponin I 0.303 ng/ml (0-0.045)
--- NOTE | 2019-05-05 16:35 | History & Physical Report ---
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 Nieves, HTN, depression with anxiety, diet-controlled T2DM with most recent A1c 5.7, chronic anemia, chronically elevated troponin, IBS who presents to [facility] ED secondary to SOB x 1 day. In ED pt noted to have decline in H&H to 6.8/20.2 (baseline Hgb ~8-9) Bun/Cr elevated to 72 and 15.00 w/o overt electrolyte abnormalities on PD Troponin elevated 0.303 which is chronic for pt, ecg unchanged Received nebulizer tx with improvement of SOB CXR pending SOB likely in setting of symptomatic anemia which may be worsened given menses and/or hemorrhagic ovarian cyst 2 weeks ago admit to tele transfuse 1 unit PRBC for now and repeat H/H, maintain hgb 8 or greater trend H/H albuterol neb tx and incentive spirometry consult nephrology given PD, last epo inj per pt was 05/02 (4) Elevated troponin: Patient troponin elevated 0.303 Patient without chest pain or ECG changes Patient with chronically elevated troponin Recently admitted 04/21- 04/25 with chest pain and underwent echocardiogram. She was also seen and evaluated by cardiology who recommended stress echo but unable to perform due to uncontrolled hypertension Will trend troponin and repeat EKG (5) CKD (chronic kidney disease) stage V requiring chronic dialysis: ESRD on PD Bun/Cr 72 and 15 nephrology consulted continue phoslo, sevelamer, sensipar (6) HTN (hypertension): Pt significantly hypertensive in ED give coreg 12.5mg dose now on amlodipine and coreg as outpt previously difficult to control, per Dr. Nieves last note may consider adding lisinopril as outpt if not improving will defer to nephrology (7) Prolonged QT interval: QTC 514ms monitor qtc, avoid QTC prolonging drugs (8) Depression: continue zoloft, mirtazapine monitor QTC (9) DVT prophylaxis: SQ Heparin, SCD/TEDS Disposition: d/c to home when able Follow up: PCP Dr. Aldridge upon discharge; along with appropriate nephrology follow up History of Present Illness Chief Complaint: SOB x 1 day. 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 Nieves, HTN, depression with anxiety, diet-controlled T2DM with most recent A1c 5.7, chronic anemia, chronically elevated troponin, IBS who presents to [facility] ED secondary to SOB x 1 day. Sx started approx 5:30 a.m. She developed shortness of breath with exertion and substernal chest tightness. Chest tightness was non radiating, "nagging," felt difficulty taking deep breath, constant. Denies recent illness, f/c/s, dizziness, lightheaded, exertional chest pain, SOB at rest, hemoptysis, wheezing, cough, n/v/d, abdominal pain, melena, hematochezia. She is anuric. Has had diarrhea but not unusual for her given her hx of IBS. She recently ended her menses which was 2 weeks late. Lasted 4-5 days, no excessive heavy flow or change in menstruation. Recently admitted to [facility] 04/22- for chest pain and elevated troponin. Troponin elevated baseline 0.3, but upon admission was 0.4-0.5. Cardiology consulted. Initial echocardiogram was obtained and unchanged from prior revealing preserved ejection fraction. Stress echocardiogram was recommended but was unable to be performed due to patient being significantly hypertensive. Cardiology deferred hypertensive management to nephrology given patient's ESRD. She was given Procrit during admission on 04/14. Was also placed on potassium supplementation to hypokalemia. Lastly she had RLQ pain. Pelvis U/S suggested small 3cm complex cyst likely corpus luteum cyst. There was concern for possible rupture of cyst causing pain. Post discharge patient admits to being compliant with her peritoneal dialysis, last treatment last evening. Also admits to being compliant with medications. Her last dose of Epogen was on 05/02. While in ED pt was initially treated with nebulizer treatment. Pt feels this did help her breathing. Allergies Allergy/AdvReac Type Severity Reaction Status Date / Time cefaclor Allergy Intermediate Rash Verified 05/05/19 15:27 amoxicillin AdvReac Mild VOMITING Verified 05/05/19 15:27 clavulanic acid AdvReac Mild VOMITING Verified 05/05/19 15:27 Home Medications Home Medications Medication Instructions Recorded Confirmed Type albuterol sulfate [Ventolin HFA] 2 puff INHALATION QID PRN 05/30/18 05/05/19 History calcium acetate 2,668 mg PO DIRECTED 05/30/18 05/05/19 History calcium acetate 3,335 mg PO TIDM 05/30/18 05/05/19 History sertraline [Zoloft] 50 mg PO QAM 05/30/18 05/05/19 History sumatriptan succinate [Imitrex] 50 mg PO DIRECTED PRN MDD 100 05/30/18 05/05/19 History MG/24 HOURS loratadine 10 mg PO HS PRN 07/30/18 05/05/19 History mirtazapine 30 mg PO HS 10/08/18 05/05/19 History amlodipine [Norvasc] 10 mg PO DAILY 11/03/18 05/05/19 History cinacalcet [Sensipar] 30 mg PO QPM 11/03/18 05/05/19 History gabapentin [Neurontin] 400 mg PO BID 11/03/18 05/05/19 History gabapentin [Neurontin] 800 mg PO HS 11/26/18 05/05/19 History acetaminophen [Tylenol Extra 1,000 mg PO Q6H PRN 12/04/18 05/05/19 History Strength] calcium acetate 1,334 mg PO DIRECTED 01/24/19 05/05/19 History gabapentin 400 mg PO QDL 01/24/19 05/05/19 History famotidine [Pepcid] 40 mg PO DAILY 04/21/19 05/05/19 History sevelamer carbonate 1,600 mg PO TIDM 04/21/19 05/05/19 History potassium chloride 20 meq PO DAILY #30 tab 04/25/19 05/05/19 Rx carvedilol 12.5 mg PO BID 05/05/19 05/05/19 History Past Med/Surg History Medical History Fistula of artery (Chronic) Diastolic CHF (Chronic) "echo 04/18/17 - EF 60-65%, grade II diastolic dysfunction" FSGS (focal segmental glomerulosclerosis) (Chronic) DM2 (diabetes mellitus, type 2) (Chronic) HTN (hypertension) (Chronic) CKD (chronic kidney disease) stage V requiring chronic dialysis (Chronic) Peritoneal dialysis catheter in place (Chronic) Dependence on peritoneal dialysis (Acute) Depression (Chronic) Surgical History H/O knee surgery (Resolved) H/O: (Resolved) H/O tubal ligation (Resolved) H/O eye surgery (Resolved) H/O section (Resolved) History of cholecystectomy (Resolved) H/O hernia repair (Resolved) Family History Grandmother Hx of CABG Mother Diabetes Father Crohn's disease Social History Preferred Language: Uzbek Communication Ability: Effective Cider Maker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 Beliefs That Will Affect Care: None Current Living Situation: Family Current Living Situation Comment: [facility] Feels Safe at Home: Yes Safety Concerns: Feels Safe At This Time Smoking Status: Current every day smoker Tobacco Type: cigarettes ; Cigarettes Per Day: 4 ; Do You Dip or Chew Tobacco: No ; Second Hand Exposure: Yes ; Hx Alcohol Use: Yes Alcohol Intake Frequency Comment: q3 months Hx Substance Use: No Review of Systems Review of Systems: All systems reviewed & are unremarkable except as noted in HPI & below Physical Exam Physical Exam: Constitutional: WD/WN, vitals as above, NAD, sitting up in bed, pallor, pleasant, conversing easily Head: Normocephalic, Atraumatic Eyes: PERRL, conjunctivae normal, anicteric sclerae ENMT: external ear and nose normal, oropharynx normal Neck: trachea midline, no thyromegaly normal visual inspection Respiratory: normal respiratory effort, lungs clear to auscultation, no wheeze, rales, rhonchi. Normal insp/exp effort, no accessory muscle use Cardiovascular: tachycardic rate, regular rhythm, no murmur, trace lower ext edema Vessels: no JVD or carotid bruit Chest: normal inspection of chest Abdomen: normal bowel sounds, soft, nontender, no hepatosplenomegaly +PD cath dresing CDI Musculoskeletal: no cyanosis or clubbing, extremities motor strength 5/5 Skin: no rashes, warm and dry normal turgor Neurologic: PERRL, EOMI, accommodation nl, no face palsy, no dysarthria CN's II-XI intact bilaterally and moves all extremities Psychiatric: A+Ox3, euthymic affect Lymphatic: no cervical or axillary lymphadenopathy : deferred Results & Data Vital Signs (Past 12 Hours) Vital Signs Temp Pulse Pulse Resp BP BP Pulse Ox 05/05/19 16:29 93 H 17 168/106 H 96 05/05/19 15:32 98 05/05/19 15:03 89 95 05/05/19 14:32 36.8 C 100 H 20 177/121 H 96 Laboratory Results Short CBC 05/05/19 Range/Units 14:04 WBC 7.32 (4.8-10.8) K/uL Hgb 6.8 L* (12.0-16.0) g/dL Hct 20.2 L* (37-47) % Plt Count 129 L (130-400) K/uL BMP 05/05/19 14:04 Sodium 140 Potassium 5.1 Chloride 104 Carbon Dioxide 23 BUN 72 H Creatinine 15.00 H* Glucose 85 Calcium 7.8 L Cardiac Enzymes 05/05/19 05/05/19 Range/Units 14:04 14:04 Total Creatine Kinase 56 Cancelled (26-192) U/L CK-MB (CK-2) < 1.0 Cancelled (0.5-3.6) ng/ml Troponin I 0.303 H* (0-0.045) ng/ml Liver Function 05/05/19 Range/Units 14:04 Total Bilirubin 0.4 (0.2-1) mg/dl AST 16 (15-37) U/L ALT 17 (12-78) U/L Alkaline Phosphatase 125 H (45-117) U/L Albumin 2.5 L (3.4-5.0) gm/dl Medications Administered Discontinued Medications Albuterol (Duoneb) 3 ml INH NOW STA Stop: 05/05/19 14:37 Last Admin: 05/05/19 15:01 Dose: 3 ml Documented by: [id number] Methylprednisolone (Solumedrol) 125 mg IV NOW STA Stop: 05/05/19 14:37 Last Admin: 05/05/19 16:04 Dose: Not Given Documented by: [id number] ECG Rate (beats per minute): 86 Rhythm: normal sinus Findings: + prolonged QT Change: no significant change Code Status & VTE Plan Code Status Full Code VTE Prophylaxis Plan VTE Prophylaxis will be ordered: Yes Supervising Physician Co-Signing Physician Notes Attending addendum The patient was seen and examined in telemetry unit With increasing shortness of breath and weakness likely secondary to fluid overload contributed by low hemoglobin Has been feeling better since admission On examination No apparent distress at rest Blood pressure is on the higher side Chest-decreased breath sounds at the base of with minimal crackles Heart-S1-S2, regular Extremities-trace edema bilateral Admission labs and imaging studies reviewed Has fluid overload secondary to likely inefficient peritoneal dialysis S OB is complicated by low hemoglobin Evident assessment plan as outlined above by VARUN Barrios DR (1) Depression Depression Type: unspecified Qualified Code(s): F32.9 - Major depressive disorder, single episode, unspecified (2) HTN (hypertension) Hypertension type: essential hypertension Qualified Code(s): I10 - Essential (primary) hypertension
[2019-05-05] MEDS ORDERED: DEXTROSE 50% 50 ML SYRINGE IV PRN (17:02)
[2019-05-05] MEDS ORDERED: POLYETHYLENE (MIRALAX) 17 GM PACK PO PRN (17:02)
[2019-05-05] MEDS ORDERED: CALCIUM ACETATE 667 MG CAP PO PRN ×2 (17:02)
[2019-05-05] MEDS ORDERED: GLUCOSE 40% GEL 15 GM TUBE PO PRN (17:02)
[2019-05-05] MEDS ORDERED: GLUCAGON FOR INJ 1 MG VIAL SQ PRN (17:02)
[2019-05-05] MEDS ORDERED: LORATADINE 10 MG TAB PO PRN (17:02)
[2019-05-05] MEDS ORDERED: GLUCOSE 10 TABS/TUBE PO PRN (17:02)
[2019-05-05] MEDS ORDERED: CARBOHYDRATES FOR HYPOGLYCEMIA PO PRN (17:02)
--- NOTE | 2019-05-05 17:50 | Nephrology Consultation ---
Date of Consultation May 05, 2019 Assessment & Plan (1) ESRD (end stage renal disease) on dialysis: >plan pd this evening w/ longer than normal session given volume overload: 6 x 2.5L exchanges over 13h alternating 2.5% and 4.5 % starting w/ 2.5%; no LBF; orders in; dialysis nurse aware >some admission labs/parameters concerning for missed dialysis prior to admission though pt denies this >low threshold for HD in AM if not enough fluid removal >no findings on evaluation at admission concerning for peritonitis or sepsis > no PD fluid specimens needed Present on Admission?: Yes (2) Symptomatic anemia: agree w/ packed RBC one unit -added transferrin sat to admission labs -would not give epo w/ current HTN but monitor for opportunity to give Present on Admission?: Yes (3) HTN (hypertension): HTN w/ sob -continue CCB, BB at OP doses -dialysis tonight w/ aggressive fluid removal as she gets pRBC; may need further HD tomorrow for optimization -start prn metoprolol IV, start enalapril 5 mg daily first dose now -ordered FR, <2 gm daily na diet in addition to dialysis diet Present on Admission?: Yes History of Present Illness Reason for Consultation: ESRD on dialysis Requesting Physician: Dr Victor Attending Physician: Juan Victor MD History of Present Illness 33 y/o F w/ ESRD on PD admitted today w/ symptomatic anemia whom I'm asked to see for dialysis needs and fluid mgt. Presenting hgb was 6.8, presenting creatinine 15. K 5.1. PMH includes CAD s/p stent, HTN, GERD, migraines, ESRD s/p failed living related kidney txplt from nonadherence to medical recommendations, hemoperitoneum for which she uses maintenance heparin once weekly w/ PD. She was recently admitted here from 04/21-04/25 with non ACS chest pain and uncontrolled HTN. At that hospital d/c, her coreg was doubled to 12.5 mg bid; 10 mg daily amlodipine continued. Her OP rx is 10 hrs on cycler w/ 5 x 2.5% dextrose 2.5L exchanges and MDE. She developed sudden onset exertional dyspnea yesterday and especially today. She is on day 4 of her menses, else no ed bleeding; denies recent wt gains, missed dialysis treatments, or missed epo doses. Currently no abd pain, n/v; has stable chronic diarrhea. No acute vision changes, confusion, focal numbness or weakness. intermittent chest discomfort unrelated to activity; also with stable exertional dyspnea. no orthopnea. Allergies Allergy/AdvReac Type Severity Reaction Status Date / Time cefaclor Allergy Intermediate Rash Verified 05/05/19 15:27 amoxicillin AdvReac Mild VOMITING Verified 05/05/19 15:27 clavulanic acid AdvReac Mild VOMITING Verified 05/05/19 15:27 Home Medications Home Medications Medication Instructions Recorded Confirmed Type albuterol sulfate [Ventolin HFA] 2 puff INHALATION QID PRN 05/30/18 05/05/19 History calcium acetate 2,668 mg PO DIRECTED 05/30/18 05/05/19 History calcium acetate 3,335 mg PO TIDM 05/30/18 05/05/19 History sertraline [Zoloft] 50 mg PO QAM 05/30/18 05/05/19 History sumatriptan succinate [Imitrex] 50 mg PO DIRECTED PRN MDD 100 05/30/18 05/05/19 History MG/24 HOURS loratadine 10 mg PO HS PRN 07/30/18 05/05/19 History mirtazapine 30 mg PO HS 10/08/18 05/05/19 History amlodipine [Norvasc] 10 mg PO DAILY 11/03/18 05/05/19 History cinacalcet [Sensipar] 30 mg PO QPM 11/03/18 05/05/19 History gabapentin [Neurontin] 400 mg PO BID 11/03/18 05/05/19 History gabapentin [Neurontin] 800 mg PO HS 11/26/18 05/05/19 History acetaminophen [Tylenol Extra 1,000 mg PO Q6H PRN 12/04/18 05/05/19 History Strength] calcium acetate 1,334 mg PO DIRECTED 01/24/19 05/05/19 History gabapentin 400 mg PO QDL 01/24/19 05/05/19 History famotidine [Pepcid] 40 mg PO DAILY 04/21/19 05/05/19 History sevelamer carbonate 1,600 mg PO TIDM 04/21/19 05/05/19 History potassium chloride 20 meq PO DAILY #30 tab 04/25/19 05/05/19 Rx carvedilol 12.5 mg PO BID 05/05/19 05/05/19 History Patient History Medical History Fistula of artery (Chronic) Diastolic CHF (Chronic) "echo 04/18/17 - EF 60-65%, grade II diastolic dysfunction" FSGS (focal segmental glomerulosclerosis) (Chronic) DM2 (diabetes mellitus, type 2) (Chronic) HTN (hypertension) (Chronic) CKD (chronic kidney disease) stage V requiring chronic dialysis (Chronic) Peritoneal dialysis catheter in place (Chronic) Dependence on peritoneal dialysis (Acute) Depression (Chronic) Surgical History H/O knee surgery (Resolved) H/O: (Resolved) H/O tubal ligation (Resolved) H/O eye surgery (Resolved) H/O section (Resolved) History of cholecystectomy (Resolved) H/O hernia repair (Resolved) Family History Grandmother Hx of CABG Mother Diabetes Father Crohn's disease Social History Preferred Language: Korean Communication Ability: Effective [employer] Supervisor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 Beliefs That Will Affect Care: None Current Living Situation: Family Current Living Situation Comment: [facility] Feels Safe at Home: Yes Safety Concerns: Feels Safe At This Time Smoking Status: Current every day smoker Tobacco Type: cigarettes ; Cigarettes Per Day: 4 ; Do You Dip or Chew Tobacco: No ; Second Hand Exposure: Yes ; Hx Alcohol Use: Yes Alcohol Intake Frequency Comment: q3 months Hx Substance Use: No Review of Systems Review of Systems: All systems reviewed & are unremarkable except as noted in HPI & below Constitutional: no fever, no weakness and no weight gain Eyes: no worsening vision Ear, Nose, Mouth, Throat: no dry mouth Respiratory: as per Subjective / HPI; no cough Cardiovascular: as per Subjective / HPI and + edema (minimal); no palpitations and no lightheadedness Gastrointestinal: as per Subjective / HPI; no change in bowel habits Genitourinary: pt is anuric Musculoskeletal: + swelling; no joint pain, no muscle weakness and no body aches Integumentary: no rash and no non-healing lesions Neurologic: no unsteadiness, no generalized weakness, no abnormal speech and no confusion Psychiatric: no behavioral changes Endocrine: no fatigue Physical Exam Constitutional: well developed and + obese on RA maneuver readily for exam, gives good hx, nad Eyes: EOM intact bilaterally ENMT: Ears: no external ear abnormality Nose: no external nose abnormality Mouth: + dry oral mucous membranes Neck: no nuchal rigidity Respiratory: normal respiratory effort Auscultation: lungs clear to auscul tation bilaterally and + diminished lung sounds Cardiovascular: Rate/Rhythm: regular rhythm and + tachycardic Extremities: + edema (at most trace) and + AV fistula (+ t/b) Gastrointestinal (Abdomen): Inspection/Auscultation: normal bowel sounds Percussion/Palpation: abdomen soft; abdomen nontender PD catheter present Musculoskeletal: Extremities: strength 5/5 throughout Skin: no rashes, warm and dry Neurologic: sandy, fluent speech, no tremor Psychiatric: A+Ox3, euthymic affect Motor Behavior: no abnormal motor movements Speech: normal rate/rhythm/volume of speech Results & Data Vital Signs (Past 12 Hours) Vital Signs Temp Pulse Pulse Resp BP BP Pulse Ox 05/05/19 17:46 36.8 C 98 H 14 176/124 H 100 05/05/19 17:02 37.1 C 92 H 14 177/110 H 97 05/05/19 16:29 93 H 17 168/106 H 96 05/05/19 15:32 98 05/05/19 15:03 89 95 05/05/19 14:32 36.8 C 100 H 20 177/121 H 96 Pulse Ox 05/05/19 17:46 05/05/19 17:02 97 05/05/19 16:29 05/05/19 15:32 05/05/19 15:03 05/05/19 14:32 Laboratory Results 05/05/19 14:04 05/05/19 14:04 Diagnostic Findings cxr Cardiomegaly and mild pulmonary edema pattern. Clinical and radiographic follow- up is recommended (1) HTN (hypertension) Hypertension type: essential hypertension Qualified Code(s): I10 - Essential (primary) hypertension
[2019-05-05] MEDS ORDERED: METOPROLOL TARTRATE 1 MG/ML VIAL IV PRN (18:20)
[2019-05-05] MEDS: carvediloL 12.5 MG TAB PO SCH ×2 (18:29→21:33)
[2019-05-05] MEDS: SEVELAMER HCL 800 MG TABLET PO SCH (18:29)
[2019-05-05] MEDS: CALCIUM ACETATE 667 MG CAP PO SCH (18:30)
--- NOTE | 2019-05-05 18:32 | XRay Report ---
XR chest 1V portable CLINICAL HISTORY: Dyspnea COMPARISON STUDY: 04/21/2019 FINDINGS: The heart is enlarged. There is diffuse elevation of interstitium with groundglass opacitie s consistent with congestive failure/fluid overload with mild pulmonary edema. There is no lobar cons olidation. There are no pleural effusions.[ IMPRESSION: Cardiomegaly and mild pulmonary edema pattern. Clinical and radiographic follow-up is rec ommended Electronically signed by: Win Foster M.D. 05/05/2019 6:31 PM
[2019-05-05] MEDS: ENALAPRIL MALEATE 5 MG TAB PO SCH (19:00)
[2019-05-05 19:26] LABS: Iron 65 mcg/dl (35-150); Transferrin 169 mg/dl (200-360); Transferrin Percent Saturation 27 % (15-50)
[2019-05-05] MEDS: ALBUTEROL 0.083% NEBU SOLN 3 ML VIAL NEB SCH (19:26)
[2019-05-05 21:20] LABS: Hematocrit (blood only) 23.3 % (37-47); Hemoglobin 7.6 g/dL (12.0-16.0)
[2019-05-05] MEDS: GABAPENTIN 400 MG CAP PO SCH (21:31)
[2019-05-05] MEDS: MIRTAZAPINE TAB 15 MG TAB PO SCH (21:32)
[2019-05-05] MEDS ORDERED: HEPARIN SOD 5,000 UNIT/0.5 ML VIAL SQ SCH (22:00)
--- NOTE | 2019-05-05 23:16 | Emergency Department Note ---
Entered by Sonia De acting as a scribe for Theo Irizarry MD ED Provider Note CHIEF COMPLAINT: Shortness of Breath HISTORY OF PRESENT ILLNESS: The patient is a 33 year old female who presents to the Emergency Room with complaints of worsening shortness of breath. She states her symptoms started around 0530 this morning. 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 She had an appointment at [facility] and states she had to walk a far distance to get to the appointment. Earlier today while laying on her left side watching TV, she reports her breathing worsened, so she decided to come to the ED. She notes her chest feels "tight". Her inhaler has provided minimal relief. The patient also complains of intermittent double vision for the past 1 week. She states her symptoms come and go, but "make driving difficult". She is on dialysis and does not make any urine. 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 Pt denies LOC, headache, fevers, chills, diaphoresis, neck pain, chest pain, nausea, vomiting, abdominal pain, back pain, melena, hematochezia, urinary symptoms, numbness, weakness, lymphadenopathy, rash, or other complaints. REVIEW OF SYSTEMS: See HPI for pertinent positives and negatives. A total of ten systems were reviewed and were otherwise negative. PMHx/PSHx: Asthma. ESRD. DM. HTN. CKD. CHF. Depression. SOCIAL HISTORY: Patient lives at home. PHYSICAL EXAM: GENERAL: Awake, alert, tired-appearing, in no distress HENT: Normocephalic, atraumatic. Oropharynx unremarkable. EYES: PERRL. Normal conjunctiva. Sclera non-icteric. NECK: Inspection normal. Non-tender. Supple. No nuchal rigidity. FROM. No masses. RESPIRATORY: Clear to auscultation. No wheezes. No rales. Normal respiratory effort. CARDIAC: Normal rate. Normal rhythm. No murmurs. No rubs. Extremities warm and well perfused. Pulses equal. No JVD. GI: Soft, non-distended. No tenderness to palpation. Peritoneal dialysis catheter in LLQ. No rebound or guarding. No masses. RECTAL: Deferred. MUSCULOSKELETAL: Atraumatic. Chest examination reveals no tenderness. The back is symmetrical on inspection without obvious abnormality. There is no CVA tenderness to palpation. No joint edema. LOWER EXTREMITIES: Calves are equal size bilaterally and non-tender. No edema. No discoloration. NEURO: Normal sensorium. No sensory or motor deficits noted. SKIN: No rash or jaundice noted. EMERGENCY DEPARTMENT COURSE: 1435: Past medical records reviewed. The patient was evaluated in room C2B, and a complete history and physical examination were performed. 1510: I reevaluated the patient. She is resting comfortably. I updated her on her results and my recommendation she remain in the hospital for further evaluation and management and she is agreeable with the plan. I have also consented her for receiving blood products. 1536: I discussed the patients case with Maida Cristina PA-C, [facility] Hospitalist. The patient will be further evaluated. MEDICAL DECISION MAKING: B7 Triage Nursing notes reviewed and agree them. The patient's history was concerning for shortness of breath. Differential diagnosis: Etiologies such as pneumonia, COPD, reactive airway disease, CHF, cardiac ischemia, pulmonary embolism, pneumothorax, musculoskeletal, infections, gastrointestinal, as well as others were entertained. Physical examination: As above. Hypertension but no hypoxia. ER treatment provided: DuoNeb IV Solu-Medrol On reassessment the patient felt better. Packed red blood cell transfusion. Diagnostic interpretation by me: The electrocardiogram was negative for pathologic change. The labs revealed a moderate anemia on CBC. The patient has an elevated troponin. Chemistry panel reveals a significant elevation of her creatinine consistent with her end-stage renal disease. Imaging studies: Chest x-ray negative for acute process. Consultation: A consultation was placed with the hospitalist. The case was discussed and diagnostics were reviewed. The patient was evaluated in the ER for further treatment. IMPRESSION: Shortness of breath. Symptomatic Anemia. Elevated Troponin. PLAN: Further evaluation by hospitalist. The scribe's documentation has been prepared under my direction and personally reviewed by me in its entirety. I confirm that the note above accurately reflects all work, treatment, procedures, and medical decision making performed by me. CRITICAL CARE: I have personally spent greater than 30 minutes of critical care time in the direct management of this patient. This includes bedside care, interpretation of diagnostic studies, and testing, discussion with consultants, patient, and other required patient management activities. This 30 minutes is in excess of all separately billable procedures. Impression & Plan Breath shortness, Elevated troponin, Symptomatic anemia Past Med/Surg History Medical History Fistula of artery (Chronic) Diastolic CHF (Chronic) "echo 04/18/17 - EF 60-65%, grade II diastolic dysfunction" FSGS (focal segmental glomerulosclerosis) (Chronic) DM2 (diabetes mellitus, type 2) (Chronic) HTN (hypertension) (Chronic) CKD (chronic kidney disease) stage V requiring chronic dialysis (Chronic) Peritoneal dialysis catheter in place (Chronic) Dependence on peritoneal dialysis (Acute) Depression (Chronic) Surgical History H/O knee surgery (Resolved) H/O: (Resolved) H/O tubal ligation (Resolved) H/O eye surgery (Resolved) H/O section (Resolved) History of cholecystectomy (Resolved) H/O hernia repair (Resolved) Family History Grandmother Hx of CABG Mother Diabetes Father Crohn's disease Social History Preferred Language: Honduran Communication Ability: Effective Privacy Attorney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 Beliefs That Will Affect Care: None Current Living Situation: Family Current Living Situation Comment: [facility] Feels Safe at Home: Yes Safety Concerns: Feels Safe At This Time Smoking Status: Current every day smoker Tobacco Type: cigarettes ; Cigarettes Per Day: 4 ; Do You Dip or Chew Tobacco: No ; Second Hand Exposure: Yes ; Hx Alcohol Use: Yes Alcohol Intake Frequency Comment: q3 months Hx Substance Use: No Results & Data Vital Signs Vital Signs - 24 hr 05/05/19 14:32 05/05/19 15:03 05/05/19 15:32 Temperature 36.8 C Temperature Source Oral Sepsis Recent Fever Within 48 Hours No Sepsis New/Unexplained Change in Mental Status No Sepsis Action Taken by Nursing No Action Required Pulse Rate 100 H Pulse Rate [Right Apical] 89 Respiratory Rate 20 Respiratory Effort / Characteristics Non-Labored Spontaneous Blood Pressure 177/121 H Blood Pressure Mean 139 Pulse Oximetry 96 95 98 Oxygen Delivery Method Room Air Room Air Home Medications Current Medication List: was personally reviewed by me Laboratory Data Attestation: I reviewed the patient's lab results. Result diagrams: 05/05/19 21:09 05/05/19 14:04 Lab Results 05/05/19 05/05/19 05/05/19 Range/Units 14:04 14:04 14:04 WBC 7.32 (4.8-10.8) K/uL RBC 2.05 L (4.2-5.4) M/uL Hgb 6.8 L* (12.0-16.0) g/dL Hct 20.2 L* (37-47) % MCV 98.5 (80-100) fL MCH 33.2 (25-34) pg MCHC 33.7 (32-36) g/dL RDW Std Deviation 55.7 H (36.4-46.3) fL RDW Coeff of Laith 15.4 H (11.5-14.5) % Plt Count 129 L (130-400) K/uL MPV 9.0 (7.4-10.4) fL Immature Gran % (Auto) 0.3 % Neut % (Auto) 75.9 % Lymph % (Auto) 12.3 % [place] % (Auto) 5.1 % Eos % (Auto) 6.3 % Baso % (Auto) 0.1 % Immature Gran # (Auto) 0.02 (0.00-0.02) K/uL Neut # (Auto) 5.56 (1.4-6.5) K/uL Lymph # (Auto) 0.90 L (1.2-3.4) K/uL [place] # (Auto) 0.37 (0.11-0.59) K/uL Eos # (Auto) 0.46 (0-0.5) K/uL Baso # (Auto) 0.01 (0-0.2) K/uL Polychromasia 1+ PT 10.6 (9.0-12.0) Seconds INR 1.0 (0.9-1.1) APTT 24.8 (21.0-31.0) Seconds PTT Ratio 0.9 Sodium 140 (136-145) mmol/L Potassium 5.1 (3.5-5.1) mmol/L Chloride 104 (98-107) mmol/L Carbon Dioxide 23 (21-32) mmol/L Anion Gap 12.0 H (3-11) BUN 72 H (7-18) mg/dl Creatinine 15.00 H* (0.6-1.2) mg/dl Est Cr Clr Drug Dosing 7.7 ml/min Est GFR ( Amer) 3.2 Est GFR (Non-Af Amer) 2.8 BUN/Creatinine Ratio 4.8 L (10-20) Glucose 85 (70-99) mg/dl Calcium 7.8 L (8.5-10.1) mg/dl Iron 65 (35-150) mcg/dl Transferrin 169 L (200-360) mg/dl Transferrin % Sat 27 (15-50) % Total Bilirubin 0.4 (0.2-1) mg/dl AST 16 (15-37) U/L ALT 17 (12-78) U/L Alkaline Phosphatase 125 H (45-117) U/L Total Creatine Kinase 56 (26-192) U/L CK-MB (CK-2) < 1.0 (0.5-3.6) ng/ml CK/CKMB % Calc TNP Troponin I 0.303 H* (0-0.045) ng/ml Total Protein 6.3 L (6.4-8.2) gm/dl Albumin 2.5 L (3.4-5.0) gm/dl Globulin 3.8 (2.5-4.0) gm/dl Albumin/Globulin Ratio 0.7 L (0.9-2) 05/05/19 Range/Units 14:04 WBC (4.8-10.8) K/uL RBC (4.2-5.4) M/uL Hgb (12.0-16.0) g/dL Hct (37-47) % MCV (80-100) fL MCH (25-34) pg MCHC (32-36) g/dL RDW Std Deviation (36.4-46.3) fL RDW Coeff of Laith (11.5-14.5) % Plt Count (130-400) K/uL MPV (7.4-10.4) fL Immature Gran % (Auto) % Neut % (Auto) % Lymph % (Auto) % [place] % (Auto) % Eos % (Auto) % Baso % (Auto) % Immature Gran # (Auto) (0.00-0.02) K/uL Neut # (Auto) (1.4-6.5) K/uL Lymph # (Auto) (1.2-3.4) K/uL [place] # (Auto) (0.11-0.59) K/uL Eos # (Auto) (0-0.5) K/uL Baso # (Auto) (0-0.2) K/uL Polychromasia PT (9.0-12.0) Seconds INR (0.9-1.1) APTT (21.0-31.0) Seconds PTT Ratio Sodium (136-145) mmol/L Potassium (3.5-5.1) mmol/L Chloride (98-107) mmol/L Carbon Dioxide (21-32) mmol/L Anion Gap (3-11) BUN (7-18) mg/dl Creatinine (0.6-1.2) mg/dl Est Cr Clr Drug Dosing ml/min Est GFR ( Amer) Est GFR (Non-Af Amer) BUN/Creatinine Ratio (10-20) Glucose (70-99) mg/dl Calcium (8.5-10.1) mg/dl Iron (35-150) mcg/dl Transferrin (200-360) mg/dl Transferrin % Sat (15-50) % Total Bilirubin (0.2-1) mg/dl AST (15-37) U/L ALT (12-78) U/L Alkaline Phosphatase (45-117) U/L Total Creatine Kinase Cancelled (26-192) U/L CK-MB (CK-2) Cancelled (0.5-3.6) ng/ml CK/CKMB % Calc Cancelled Troponin I (0-0.045) ng/ml Total Protein (6.4-8.2) gm/dl Albumin (3.4-5.0) gm/dl Globulin (2.5-4.0) gm/dl Albumin/Globulin Ratio (0.9-2) Administered Medications Albuterol (Ventolin 0.083% 2.5mg/3ml) 2.5 mg NEB TIDR NIKKI Stop: 06/04/19 18:59 Last Admin: 05/05/19 19:26 Dose: 2.5 mg Documented by: [id number] Calcium Acetate (Phoslo) 3,335 mg PO TIDM NIKKI Stop: 06/04/19 17:01 Last Admin: 05/05/19 18:30 Dose: 3,335 mg Documented by: [id number] Carvedilol (Coreg) 12.5 mg PO BID [facility] Stop: 06/04/19 16:19 Last Admin: 05/05/19 21:33 Dose: 12.5 mg Documented by: [id number] Admin: 05/05/19 18:29 Dose: 12.5 mg Documented by: [id number] Enalapril Maleate (Vasotec) [facility] Stop: 06/04/19 18:29 Last Admin: 05/05/19 19:00 Dose: 5 mg Documented by: [id number] Gabapentin (Neurontin) 800 mg PO [facility]; Protocol Stop: 06/04/19 20:59 Last Admin: 05/05/19 21:31 Dose: 800 mg Documented by: [id number] Mirtazapine (Remeron) 30 mg PO [facility] Stop: 06/04/19 20:59 Last Admin: 05/05/19 21:32 Dose: 30 mg Documented by: [id number] Sevelamer HCl (Renagel) 1,600 mg PO TIDM [facility] Stop: 06/04/19 17:01 Last Admin: 05/05/19 18:29 Dose: 1,600 mg Documented by: [id number] Discontinued Medications Albuterol (Duoneb) 3 ml INH NOW STA Stop: 05/05/19 14:37 Last Admin: 05/05/19 15:01 Dose: 3 ml Documented by: [id number] Methylprednisolone (Solumedrol) 125 mg IV NOW STA Stop: 05/05/19 14:37 Last Admin: 05/05/19 16:04 Dose: Not Given Documented by: [id number] ECG Data Attestation: I personally reviewed and interpreted this ECG as follows: Indication: SOB/dyspnea Rate (beats per minute): 86 Rhythm: normal sinus Findings: + other (Prolonged QT) and + nonspecific-ST abn; no ST depression and no ST elevation Blood Pressure Blood Pressure Findings: Elevated blood pressure Blood Pressure Disposition: further management by hospitalist Discharge Plan Visit Data *Final* Discharge Date/Time: 05/05/19 16:42 Chief Complaint: Shortness of Breath/Dyspnea Stated Complaint: sob ED Provider: Theo Irizarry Discharge Problem: Breath shortness, Elevated troponin, Symptomatic anemia Patient Disposition: Admitted As Inpatient Discharge Instructions Interventions: ED Discharge Assessment Last Done: 05/05/19 16:42 The scribe's documentation has been prepared under my direction and personally reviewed by me in its entirety. I confirm that the note above accurately reflects all work, treatment, procedures, and medical decision making performed by me.
[2019-05-06 04:43] LABS: Hematocrit (blood only) 23.5 % (37-47); Hemoglobin 7.8 g/dL (12.0-16.0); Mean Corpuscular Hemoglobin 31.6 pg (25-34); Mean Corpuscular Hgb Conc 33.2 g/dL (32-36); Mean Corpuscular Volume 95.1 fL (80-100); Mean Platelet Volume 8.8 fL (7.4-10.4); Nucleated RBC # (auto) 0.02 K/uL (0-0); Nucleated RBC % (auto) 0.3 %; Platelet Count 130 K/uL (130-400); RDW Coefficient of Variation 16.8 % (11.5-14.5); RDW Standard Deviation 58.6 fL (36.4-46.3); Red Blood Count 2.47 M/uL (4.2-5.4); White Blood Count 5.36 K/uL (4.8-10.8)
[2019-05-06 05:21] LABS: Albumin Globulin Ratio 0.7 (0.9-2); Albumin Level 2.6 gm/dl (3.4-5.0); BUN Creatinine Ratio 4.8 (10-20); Bilirubin,Total 0.4 mg/dl (0.2-1); Calcium 7.7 mg/dl (8.5-10.1); Creatinine Clr Calc Pharmacy 6.8 ml/min; Est GFR (African American) 3.5; Globulin 3.8 gm/dl (2.5-4.0); Potassium 4.4 mmol/L (3.5-5.1); Total Protein 6.4 gm/dl (6.4-8.2); Troponin I 0.338 ng/ml (0-0.045)
[2019-05-06] MEDS: ALBUTEROL 0.083% NEBU SOLN 3 ML VIAL NEB SCH (07:14)
[2019-05-06] MEDS: ENALAPRIL MALEATE 5 MG TAB PO SCH ×2 (07:44→20:59)
[2019-05-06] MEDS: SEVELAMER HCL 800 MG TABLET PO SCH ×3 (07:44→16:52)
[2019-05-06] MEDS: FAMOTIDINE 20 MG TAB PO SCH (07:44)
[2019-05-06] MEDS: AMLODIPINE BESYLATE 5 MG TAB PO SCH (07:45)
[2019-05-06] MEDS: CALCIUM ACETATE 667 MG CAP PO SCH ×3 (07:45→16:51)
[2019-05-06] MEDS: SERTRALINE HCL 50 MG TABLET PO SCH (07:45)
[2019-05-06] MEDS: GABAPENTIN 400 MG CAP PO SCH ×4 (07:45→21:00)
[2019-05-06] MEDS ORDERED: EPOETIN ALFA 20,000 UNITS/ML VIAL IV ONE (08:01)
[2019-05-06] MEDS ORDERED: SODIUM CHLORIDE 0.9% 1000ML 1,000 ML IV PRN (08:01)
[2019-05-06] MEDS: carvediloL 12.5 MG TAB PO SCH ×2 (09:18→21:01)
[2019-05-06] MEDS: ACETAMINOPHEN 325 MG TAB PO PRN ×3 (09:38→20:59)
[2019-05-06] MEDS ORDERED: ALBUTEROL 0.083% NEBU SOLN 3 ML VIAL NEB PRN (12:59)
[2019-05-06 15:51] LABS: Hematocrit (blood only) 25.3 % (37-47); Hemoglobin 8.5 g/dL (12.0-16.0)
--- NOTE | 2019-05-06 16:34 | Dialysis Progress Note ---
Date of Service May 06, 2019 Assessment & Plan (1) ESRD (end stage renal disease) on dialysis: marked volume overload on presentation w/ symptomatic anemia, congestion on XR, HTN. Had PD w/ 1.2 L off on day of admission; had 2.7 L off on HD today >plan pd this evening w/ longer than normal session but more emphasis on clearance than UF: 6 x 2.5L exchanges over 12h all 2.5%; no LBF >some admission labs/parameters concerning for missed dialysis prior to admission though pt denies this >no findings on evaluation at admission concerning for peritonitis or sepsis > no PD fluid specimens needed (2) Symptomatic anemia: on admission had packed RBC one unit; t stn prior to pRBC = 27 -w/ better controlled HTN today on hd gave 20 K units of epo -hgb improving this PM w/ more UF w/ trasnfusoin, w/ epo (3) HTN (hypertension): HTN w/ sob -continue CCB, BB at OP doses >>started daily enalapril last evening 5 mg >> made it bid now -routine PD tonight w/ standard fluid removal ; cannot rule out need for future HD this admission depending on clinical/volume status -cont prn metoprolol IV -cont FR, <2 gm daily na diet in addition to dialysis diet Subjective seen on HD this am at about 1020; sleeping soundly but wakens fully; some issues on PD last evening>> dialysis nursing fixed the issue and 1.2L fluid off w/ pd ultimately; pt still w/ HTN this am and I arranged for HD to supplement PD Review of Systems Review of Systems: All systems reviewed & are unremarkable except as noted in HPI & below Respiratory: + dyspnea (somehwat improved) Cardiovascular: no chest pain Gastrointestinal: no abdominal pain, no vomiting and no change in bowel habits Physical Exam Constitutional: well developed and + obese lying flat w/o issue on ra Eyes: EOM intact bilaterally ENMT: Ears: no external ear abnormality Nose: no external nose abnormality Mouth: + dry oral mucous membranes Neck: no nuchal rigidity Respiratory: normal respiratory effort Auscultation: lungs clear to auscultation bilaterally and + diminished lung sounds Cardiovascular: Rate/Rhythm: regular rhythm and + tachycardic Extremities: + edema (at most trace) and + AV fistula (+ t/b) Gastrointestinal (Abdomen): Inspection/Auscultation: normal bowel sounds Percussion/Palpation: abdomen soft; abdomen nontender PD catheter present mid abdomen Musculoskeletal: Extremities: strength 5/5 throughout Skin: no rashes, warm and dry Psychiatric: A+Ox3, euthymic affect Motor Behavior: no abnormal motor movements Speech: normal rate/rhythm/volume of speech Results & Data Vital Signs (Past 12 Hours) Vital Signs Temp Pulse Pulse Pulse Pulse Resp BP 05/06/19 16:05 37.1 C 85 18 05/06/19 13:00 36.4 C L 73 05/06/19 12:40 77 156/72 H 05/06/19 12:20 72 163/87 H 05/06/19 12:00 71 159/96 H 05/06/19 11:40 61 152/76 H 05/06/19 11:20 71 154/93 H 05/06/19 11:00 71 140/91 05/06/19 10:40 74 140/94 05/06/19 10:20 74 137/92 05/06/19 10:00 73 158/93 H 05/06/19 09:54 74 151/99 H 05/06/19 09:45 36.7 C 78 05/06/19 09:07 82 05/06/19 08:30 36.4 C L 76 16 05/06/19 07:32 36.4 C L 76 16 05/06/19 07:16 76 18 BP Pulse Ox 05/06/19 16:05 169/96 H 95 05/06/19 13:00 119/62 05/06/19 12:40 05/06/19 12:20 05/06/19 12:00 05/06/19 11:40 05/06/19 11:20 05/06/19 11:00 05/06/19 10:40 05/06/19 10:20 05/06/19 10:00 05/06/19 09:54 05/06/19 09:45 05/06/19 09:07 05/06/19 08:30 05/06/19 07:32 176/105 H 97 05/06/19 07:16 97 Laboratory Results 05/06/19 15:35 05/06/19 04:15 (1) HTN (hypertension) Hypertension type: essential hypertension Qualified Code(s): I10 - Essential (primary) hypertension
--- NOTE | 2019-05-06 19:44 | Hospitalist Progress Note ---
Date of Service May 06, 2019 Assessment & Plan (1) SOB (shortness of breath): (2) Symptomatic anemia: (3) Anemia due to end stage renal disease: This is a 33-year-old female who has significant PMH of ESRD s/p renal transplant on PD due to FSGS followed by Dr. Nieves, HTN, depression with anxiety, diet-controlled T2DM with most recent A1c 5.7, chronic anemia, chronically elevated troponin, IBS who presents to [facility] ED secondary to SOB x 1 day. Hemoglobin on admission 6.8 Received 1 unit PRBC on 05/05 repeat Hgb today 8.5 Will hold additional PRBC for now Case discussed with Nephro who planned to give EPO during HD Monitor H/H (4) Elevated troponin: Chronic elevated troponin Trop on admission 0.303 EKG showed no ischemic changes Recently admitted 04/21- 04/25 with chest pain and underwent echocardiogram. She was also seen and evaluated by cardiology who recommended stress echo but unable to perform due to uncontrolled hypertension Stable (5) CKD (chronic kidney disease) stage V requiring chronic dialysis: ESRD on PD Had HD done today but was not able to tolerate nephrology on board Continue phoslo, sevelamer, sensipar Will get PD later (6) HTN (hypertension): Uncontrolled HTN Continue amlodipine and coreg as outpt Enalapril 5mg BID adding by nephrology Monitor BP (7) Prolonged QT interval: QTC 540 will continue to hold Zoloft in am Avoid QTC prolonging drugs Will repeat EKG in am (8) Depression: On zoloft, mirtazapine monitor QTC (9) DVT prophylaxis: No heparin subq due to low hemoglobin On SCD Subjective Pt was seen and examined Sitting in bed with no distress watching video in her cellphone Pt said that she feels ok, she said that her blood pressure dropped during HD today She said that she had a slight headache now She said that benadryl and nausea medications usually work for the headache Denies any chest pain, palpitation, dizziness and SOB Physical Exam Physical Exam: General- No acute distress Head- atraumatic Eyes- PERRL, EOMI, ENT- oropharynx clear Neck- supple, no JVD Lungs- clear to auscultation Heart- regular rhythm; no murmur Abdomen- normal bowel sounds, soft, nontender Extremities- no calf tenderness Neuro- alert, oriented x 3; PERRL, EOMI; no facial palsy; no dysarthria Skin- warm & dry Results & Data Vital Signs (Past 12 Hours) Vital Signs Temp Pulse Pulse Pulse Pulse Resp BP 05/06/19 19:24 36.9 C 84 16 05/06/19 18:34 37.1 C 85 18 05/06/19 16:05 37.1 C 85 18 05/06/19 13:00 36.4 C L 73 05/06/19 12:40 77 156/72 H 05/06/19 12:20 72 163/87 H 05/06/19 12:00 71 159/96 H 05/06/19 11:40 61 152/76 H 05/06/19 11:20 71 154/93 H 05/06/19 11:00 71 140/91 05/06/19 10:40 74 140/94 05/06/19 10:20 74 137/92 05/06/19 10:00 73 158/93 H 05/06/19 09:54 74 151/99 H 05/06/19 09:45 36.7 C 78 05/06/19 09:07 82 05/06/19 08:30 36.4 C L 76 16 BP Pulse Ox 05/06/19 19:24 156/101 H 96 05/06/19 18:34 169/96 H 05/06/19 16:05 169/96 H 95 05/06/19 13:00 119/62 05/06/19 12:40 05/06/19 12:20 05/06/19 12:00 05/06/19 11:40 05/06/19 11:20 05/06/19 11:00 05/06/19 10:40 05/06/19 10:20 05/06/19 10:00 05/06/19 09:54 05/06/19 09:45 05/06/19 09:07 05/06/19 08:30 (1) Depression Depression Type: unspecified Qualified Code(s): F32.9 - Major depressive disorder, single episode, unspecified (2) HTN (hypertension) Hypertension type: essential hypertension Qualified Code(s): I10 - Essential (primary) hypertension
[2019-05-06] MEDS: MIRTAZAPINE TAB 15 MG TAB PO SCH (21:01)
[2019-05-07] MEDS: ACETAMINOPHEN 325 MG TAB PO PRN ×4 (05:59→23:34)
[2019-05-07 07:00] LABS: Hematocrit (blood only) 26.6 % (37-47); Hemoglobin 8.8 g/dL (12.0-16.0); Mean Corpuscular Hgb Conc 33.1 g/dL (32-36); Mean Corpuscular Volume 96.7 fL (80-100); Mean Platelet Volume 8.8 fL (7.4-10.4); Nucleated RBC # (auto) 0.02 K/uL (0-0); Nucleated RBC % (auto) 0.3 %; Platelet Count 155 K/uL (130-400); RDW Coefficient of Variation 16.6 % (11.5-14.5); RDW Standard Deviation 57.5 fL (36.4-46.3); Red Blood Count 2.75 M/uL (4.2-5.4); White Blood Count 5.55 K/uL (4.8-10.8)
[2019-05-07 07:47] LABS: BUN Creatinine Ratio 3.6 (10-20); Calcium 8.4 mg/dl (8.5-10.1); Creatinine Clr Calc Pharmacy 12.3 ml/min; Est GFR (African American) 7.2; Est GFR (Non-African American) 6.2; Potassium 3.6 mmol/L (3.5-5.1)
[2019-05-07] MEDS: AMLODIPINE BESYLATE 5 MG TAB PO SCH (08:39)
[2019-05-07] MEDS: SERTRALINE HCL 50 MG TABLET PO SCH (08:40)
[2019-05-07] MEDS: FAMOTIDINE 20 MG TAB PO SCH (08:40)
[2019-05-07] MEDS: CALCIUM ACETATE 667 MG CAP PO SCH ×3 (08:40→17:42)
[2019-05-07] MEDS: SEVELAMER HCL 800 MG TABLET PO SCH ×3 (08:41→17:43)
[2019-05-07] MEDS: ENALAPRIL MALEATE 5 MG TAB PO SCH ×2 (08:41→20:46)
[2019-05-07] MEDS: carvediloL 12.5 MG TAB PO SCH ×2 (08:41→20:45)
[2019-05-07] MEDS: GABAPENTIN 400 MG CAP PO SCH ×4 (08:41→20:45)
--- NOTE | 2019-05-07 16:00 | Nephrology Progress Note ---
Date of Service May 07, 2019 Assessment & Plan (1) ESRD (end stage renal disease) on dialysis: marked volume overload on presentation w/ symptomatic anemia, congestion on XR, HTN. Had PD w/ 1.2 L off on day of admission; had 2.7 L off on HD yesterday and another 2L off on PD ON >plan pd this evening similar rx to yesterday: 6 x 2.5L exchanges over 12h all 2.5%; no LBF >some admission labs/parameters concerning for missed dialysis prior to admission though pt denies this >no findings on evaluation at admission concerning for peritonitis or sepsis; would monitor abd discomfort but not consistent enough at this time to get PD fluid studies (2) Symptomatic anemia: on admission had packed RBC one unit; t stn prior to pRBC = 27 -w/ better controlled HTN today on hd gave 20 K units of epo -hgb 8.8 today (3) HTN (hypertension): HTN w/ sob -continue CCB, BB at OP doses >>cont bid enalapril now and at d/c -routine PD tonight w/ standard fluid removal -cont prn metoprolol IV -cont FR, <2 gm daily na diet in addition to dialysis diet Subjective seen on rounds this am; poor sleep; tolerated dialysis > 2 L off; intermittent RLQ abd pain; diarrhea a bit slower; no decreased po Review of Systems Review of Systems: All systems reviewed & are unremarkable except as noted in HPI & below Physical Exam Constitutional: well developed and + obese on RA maneuvers readily for exam Eyes: EOM intact bilaterally ENMT: Ears: no external ear abnormality Nose: no external nose abnormality Mouth: + dry oral mucous membranes Neck: no nuchal rigidity Respiratory: normal respiratory effort Auscultation: lungs clear to auscultation bilaterally and + diminished lung sounds Cardiovascular: RRR, no murmur, no edema Extremities: + AV fistula (+ t/b) Gastrointestinal (Abdomen): Inspection/Auscultation: normal bowel sounds Percussion/Palpation: abdomen soft; abdomen nontender Musculoskeletal: Extremities: strength 5/5 throughout Skin: no rashes, warm and dry Neurologic: sandy, fluent speech, no tremor Psychiatric: A+Ox3, euthymic affect Motor Behavior: no abnormal motor movements Speech: normal rate/rhythm/volume of speech Results & Data Vital Signs (Past 12 Hours) Vital Signs Temp Pulse Pulse Pulse Resp BP Pulse Ox 05/07/19 11:30 36.7 C 71 18 162/98 H 99 05/07/19 10:49 77 05/07/19 08:16 36.9 C 76 20 05/07/19 07:09 36.9 C 74 20 168/95 H 98 05/07/19 04:48 36.7 C 73 21 165/92 H 96 Laboratory Results 05/07/19 06:28 05/07/19 06:28 (1) HTN (hypertension) Hypertension type: essential hypertension Qualified Code(s): I10 - Essential (primary) hypertension
--- NOTE | 2019-05-07 16:57 | Hospitalist Progress Note ---
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 Nieves, HTN, depression with anxiety, diet-controlled T2DM with most recent A1c 5.7, chronic anemia, chronically elevated troponin, IBS who presents to [facility] ED secondary to SOB x 1 day. Hemoglobin on admission 6.8 Received 1 unit PRBC on 05/05 Hgb today 8.8 Will get EPO today if BP stable Monitor H/H (4) Elevated troponin: Chronic elevated troponin Trop on admission 0.303 EKG showed no ischemic changes Recently admitted 04/21- 04/25 with chest pain and underwent echocardiogram. She was also seen and evaluated by cardiology who recommended stress echo but unable to perform due to uncontrolled hypertension Stable (5) CKD (chronic kidney disease) stage V requiring chronic dialysis: ESRD on PD Had HD done today but was not able to tolerate nephrology on board Continue phoslo, sevelamer, sensipar Will get PD later (6) HTN (hypertension): Uncontrolled HTN Continue amlodipine and coreg as outpt Enalapril 5mg BID adding by nephrology Monitor BP (7) Prolonged QT interval: QTC improves from 540 to 497 Will monitor closely while on Zoloft Avoid QTC prolonging drugs (8) Abdominal pain: Abdominal pain associated with diarrhea Pain located in the RLQ Lying on her abdomen when I entered her room with no discomfort Does not show any sign of peritonitis If diarrhea worsening, will check stools for C-diff Tolerated diet Will add tramadol PRN (9) Depression: On zoloft, mirtazapine monitor QTC (10) DVT prophylaxis: No heparin subq due to low hemoglobin On SCD Subjective Pt was seen and examined Lying in bed with no distress playing in her cellphone Pt said that she is having pain around her RLQ abdomen She said that pain is worst with movement She said that she tolerated her diet well Denies any chest pain, palpitation, dizziness, Nausea and vomiting Physical Exam Physical Exam: General- No acute distress Head- atraumatic Eyes- PERRL, EOMI, ENT- oropharynx clear Neck- supple, no JVD Lungs- clear to auscultation Heart- regular rhythm; no murmur Abdomen- normal bowel sounds, +RLQ tender Extremities- no calf tenderness Neuro- alert, oriented x 3; PERRL, EOMI; no facial palsy; no dysarthria Skin- warm & dry Results & Data Vital Signs (Past 12 Hours) Vital Signs Temp Pulse Pulse Pulse Resp BP Pulse Ox 05/07/19 11:30 36.7 C 71 18 162/98 H 99 05/07/19 10:49 77 05/07/19 08:16 36.9 C 76 20 05/07/19 07:09 36.9 C 74 20 168/95 H 98 (1) Depression Depression Type: unspecified Qualified Code(s): F32.9 - Major depressive disorder, single episode, unspecified (2) HTN (hypertension) Hypertension type: essential hypertension Qualified Code(s): I10 - Essential (primary) hypertension
[2019-05-07] MEDS ORDERED: TRAMADOL HCL 50 MG TABLET PO PRN (17:11)
[2019-05-07] MEDS: MIRTAZAPINE TAB 15 MG TAB PO SCH (20:48)
[2019-05-08] MEDS ORDERED: TRAMADOL HCL 50 MG TABLET PO STA (03:08)
[2019-05-08 03:30] LABS: Basophils # (auto) 0.03 K/uL (0-0.2); Basophils % (auto) 0.5 %; Eosinophils # (auto) 0.45 K/uL (0-0.5); Eosinophils % (auto) 7.9 %; Hematocrit (blood only) 27.7 % (37-47); Hemoglobin 9.2 g/dL (12.0-16.0); Immature Granulocytes # (auto) 0.01 K/uL (0.00-0.02); Immature Granulocytes % (auto) 0.2 %; Lymphocytes # (auto) 1.05 K/uL (1.2-3.4); Lymphocytes % (auto) 18.5 %; Mean Corpuscular Hemoglobin 31.8 pg (25-34); Mean Corpuscular Hgb Conc 33.2 g/dL (32-36); Mean Corpuscular Volume 95.8 fL (80-100); Mean Platelet Volume 8.1 fL (7.4-10.4); Neutrophils # (auto) 3.74 K/uL (1.4-6.5); Neutrophils % (auto) 65.9 %; Platelet Count 173 K/uL (130-400); RDW Coefficient of Variation 16.1 % (11.5-14.5); Red Blood Count 2.89 M/uL (4.2-5.4); White Blood Count 5.68 K/uL (4.8-10.8)
[2019-05-08 03:55] LABS: INR 1.1 (0.9-1.1); Prothrombin Time 10.9 Seconds (9.0-12.0)
[2019-05-08 04:03] LABS: Albumin Globulin Ratio 0.7 (0.9-2); Albumin Level 2.7 gm/dl (3.4-5.0); BUN Creatinine Ratio 3.7 (10-20); Bilirubin,Total 0.3 mg/dl (0.2-1); Calcium 8.6 mg/dl (8.5-10.1); Creatinine Clr Calc Pharmacy 10.5 ml/min; Est GFR (Non-African American) 5.2; Globulin 3.9 gm/dl (2.5-4.0); Magnesium 1.9 mg/dl (1.8-2.4); Potassium 3.5 mmol/L (3.5-5.1); Total Protein 6.6 gm/dl (6.4-8.2)
[2019-05-08] MEDS: ACETAMINOPHEN 325 MG TAB PO PRN (05:23)
[2019-05-08] MEDS: GABAPENTIN 400 MG CAP PO SCH ×3 (09:19→17:16)
[2019-05-08] MEDS: ENALAPRIL MALEATE 5 MG TAB PO SCH (09:20)
[2019-05-08] MEDS: CALCIUM ACETATE 667 MG CAP PO SCH ×3 (09:20→17:17)
[2019-05-08] MEDS: SEVELAMER HCL 800 MG TABLET PO SCH ×3 (09:20→17:17)
[2019-05-08] MEDS: FAMOTIDINE 20 MG TAB PO SCH (09:20)
[2019-05-08] MEDS: AMLODIPINE BESYLATE 5 MG TAB PO SCH (09:20)
[2019-05-08] MEDS: SERTRALINE HCL 50 MG TABLET PO SCH (09:20)
[2019-05-08] MEDS: carvediloL 12.5 MG TAB PO SCH (09:20)
--- NOTE | 2019-05-08 09:57 | CT Scan Report ---
CT SCAN OF THE ABDOMEN AND PELVIS WITHOUT IV CONTRAST CLINICAL HISTORY: Right-sided abdominal pain. COMPARISON STUDY: Abdominal CT dated 04/23/2019. TECHNIQUE: CT scan of the abdomen and pelvis is performed from the lung bases to the proximal femora. Images are reviewed in the axial, sagittal, and coronal planes. IV contrast was not administered for this examination. Note that the examination is suboptimal without IV contrast. A dose lowering techn ique was utilized adhering to the principles of ALARA. CT DOSE: 1011.37 mGy.cm FINDINGS: Lung bases: The heart is enlarged and there is trace pericardial effusion. The coronary arteries are densely calcified. There is diminished attenuation of the cardiac blood pool as compared to the myoca rdium suggesting anemia. A small hiatal hernia is noted. The lung bases are clear. Liver: The unenhanced liver is normal in size, contour, and attenuation. There is no intrahepatic dean iary ductal dilatation. Gallbladder: Surgically absent noting clips in the gallbladder fossa. Spleen: Normal in size and attenuation. Pancreas: Unremarkable. Adrenal glands: Unremarkable. Kidneys: The unenhanced [place] kidneys are markedly atrophic and without hydronephrosis. There are no renal calculi identified. There is no evidence of contour deforming renal mass lesion. Abdominal vasculature: The abdominal aorta is normal in course and caliber noting mild atheroscleroti c calcification. Bowel: There are scattered colonic diverticula without CT evidence of acute diverticulitis. No bowel obstruction is seen. The appendix is normal as visualized. Peritoneum: A peritoneal dialysis catheter is coiled in the right mid abdomen from an infraumbilical approach. There are numerous small foci of intraperitoneal free air, likely related to the presence o f a dialysis catheter. There is trace free fluid identified in the abdomen and pelvis. There is a mid line surgical scar. An umbilical hernia contains fluid. Lymphadenopathy: None. Pelvic viscera: A densely calcified structure in the right hemipelvis represents an atrophic renal tr ansplant. The bladder is decompressed and not well evaluated. The bladder wall appears sequentially t hickened and there is faint pericystic inflammation. The uterus and adnexa are normal as visualized. Skeletal structures: The skeletal structures are osteopenic. Degenerative sclerosis is noted in the s acroiliac joints. No lytic or blastic lesions are seen. IMPRESSION: 1. A peritoneal dialysis catheter is present in the right mid abdomen. There are numerous small foci of intraperitoneal free air as well as a small volume of intraperitoneal free fluid. These findings a re likely due to the presence of an indwelling catheter and peritoneal dialysis. Clinical correlation will be essential. 2. Although decompressed, the bladder wall appears thickened and there is pericystic inflammation. Fi ndings suggest cystitis. 3. Cardiomegaly. 4. Additional findings as above. Electronically signed by: North Quintero M.D. 05/08/2019 9:56 AM
[2019-05-08] MEDS ORDERED: HYDROCODONE/ACETAMOPHEN 5/325MG TAB PO PRN (10:32)
--- NOTE | 2019-05-08 14:49 | Nephrology Progress Note ---
Date of Service May 08, 2019 Assessment & Plan (1) ESRD (end stage renal disease) on dialysis: marked volume overload on presentation w/ symptomatic anemia, congestion on XR, HTN. Had PD w/ 1.2 L off on day of admission; had 2.7 L off on HD day after admission and another 2L off on PD that night >plan pd this evening similar rx to yesterday: 6 x 2.5L exchanges over 12h all 2.5%; no LBF >some admission labs/parameters concerning for missed dialysis prior to admission though pt denies this >no findings on evaluation at admission concerning for peritonitis or sepsis; she is moving bowels, eating, no N; abd pain resolved; CT negative ->>>at [facility] next week we will recheck bmp, hgb, t stn and adjust medications as indicated; also has PD clinic on 05/20 at [facility] already scheduled and she should keep it (2) Symptomatic anemia: on admission had packed RBC one unit; t stn prior to pRBC = 27 -w/ better controlled HTN ; on hd gave 20 K units of epo -hgb 9.2 today (3) HTN (hypertension): HTN w/ sob -continue CCB, BB at OP doses >>>>>cont bid enalapril now and at d/c -routine PD at home tonight w/ standard fluid removal -cont FR, <2 gm daily na diet in addition to dialysis diet Subjective seen on rounds at about 1330; just under 2L UF ON; no c/o. moving bowels. crampy RLQ abd pain resolved; had CT scan abd for eval of this > negative scan. no sob. no chest pain. no v/n or f/c. d/c home is planned. Review of Systems Review of Systems: All systems reviewed & are unremarkable except as noted in HPI & below Physical Exam Constitutional: well developed and + obese on ra maneuvers readily for exam Eyes: EOM intact bilaterally ENMT: Ears: no external ear abnormality Nose: no external nose abnormality Mouth: + dry oral mucous membranes Neck: no nuchal rigidity Respiratory: normal respiratory effort Auscultation: lungs clear to auscultation bilaterally and + diminished lung sounds Cardiovascular: RRR, no murmur, no edema Extremities: + AV fistula (+ t/b) Gastrointestinal (Abdomen): Inspection/Auscultation: normal bowel sounds Percussion/Palpation: abdomen soft; abdomen nontender PD cath present mid L abd; NT RLQ renal allograft Musculoskeletal: Extremities: strength 5/5 throughout Skin: no rashes, warm and dry Neurologic: sandy, fluent speech, no tremor Psychiatric: A+Ox3, euthymic affect Motor Behavior: no abnormal motor movements Speech: normal rate/rhythm/volume of speech Results & Data Vital Signs (Past 12 Hours) Vital Signs Temp Pulse Pulse Resp BP Pulse Ox 05/08/19 10:51 37 C 69 20 131/83 96 05/08/19 08:15 36.6 C 69 20 151/93 H 93 05/08/19 08:00 79 05/08/19 03:45 36.6 C 69 20 138/90 95 Laboratory Results Abnormal lab results 05/07/19 05/07/19 05/08/19 Range/Units 16:20 20:29 03:19 RBC 2.89 L (4.2-5.4) M/uL Hgb 9.2 L (12.0-16.0) g/dL Hct 27.7 L (37-47) % RDW Std Deviation 56.0 H (36.4-46.3) fL RDW Coeff of Laith 16.1 H (11.5-14.5) % Lymph # (Auto) 1.05 L (1.2-3.4) K/uL Sodium (136-145) mmol/L Chloride (98-107) mmol/L BUN (7-18) mg/dl Creatinine (0.6-1.2) mg/dl BUN/Creatinine Ratio (10-20) Glucose (70-99) mg/dl POC Glucose 101 H 112 H (70-99) Albumin (3.4-5.0) gm/dl Albumin/Globulin Ratio (0.9-2) 05/08/19 05/08/19 Range/Units 03:19 07:07 RBC (4.2-5.4) M/uL Hgb (12.0-16.0) g/dL Hct (37-47) % RDW Std Deviation (36.4-46.3) fL RDW Coeff of Laith (11.5-14.5) % Lymph # (Auto) (1.2-3.4) K/uL Sodium 135 L (136-145) mmol/L Chloride 97 L (98-107) mmol/L BUN 33 H (7-18) mg/dl Creatinine 9.05 H* D (0.6-1.2) mg/dl BUN/Creatinine Ratio 3.7 L (10-20) Glucose 150 H (70-99) mg/dl POC Glucose 132 H (70-99) Albumin 2.7 L (3.4-5.0) gm/dl Albumin/Globulin Ratio 0.7 L (0.9-2) (1) HTN (hypertension) Hypertension type: essential hypertension Qualified Code(s): I10 - Essential (primary) hypertension
--- NOTE | 2019-05-08 17:01 | Hospitalist Progress Note ---
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 Nieves, HTN, depression with anxiety, diet-controlled T2DM with most recent A1c 5.7, chronic anemia, chronically elevated troponin, IBS who presents to [facility] ED secondary to SOB x 1 day. Hemoglobin on admission 6.8 Received 1 unit PRBC on 05/05 Hgb today 9.2 Received EPO during dialysis Monitor H/H (4) Elevated troponin: Chronic elevated troponin Trop on admission 0.303 EKG showed no ischemic changes Recently admitted 04/21- 04/25 with chest pain and underwent echocardiogram. She was also seen and evaluated by cardiology who recommended stress echo but unable to perform due to uncontrolled hypertension Stable (5) CKD (chronic kidney disease) stage V requiring chronic dialysis: ESRD on PD Had HD done today but was not able to tolerate nephrology on board Continue shay martinez sensipar Case discussed with nephrology and ok from nephrology standpoint to discharge home Will get PD done tonight at home (Pt said that she is comfortable to do it ) OK from nephrology to discharge home (6) HTN (hypertension): BP stable Continue amlodipine and coreg as outpt Continue Enalapril 5mg BID Monitor BP (7) Prolonged QT interval: QTC improves from 540 to 497 Will monitor closely while on Zoloft Avoid QTC prolonging drugs (8) Abdominal pain: Abdominal pain associated with diarrhea Pain located in the RLQ CT abdomen showed peritoneal dialysis catheter is present in the right mid abdomen. There are numerous small foci of intraperitoneal free air as well as a small volume of intraperitoneal free fluid. These findings are likely due to the presence of an indwelling catheter and peritoneal dialysis. Tolerated diet Pain control (9) Depression: On zoloft, mirtazapine monitor QTC (10) DVT prophylaxis: No heparin subq due to low hemoglobin On SCD Disposition Will discharge home today Follow up with Dr. Aldridge on 05/14 @ 10:45 AM Subjective Pt was seen and examined Lying in bed with no distress writing Pt said that her abdominal pain improves significantly She said that she did not have any pain after eating She said that she feels much better and would like to discharge today She said that she will do PD dialysis at home tonight Denies any chest pain, palpitation and SOB Physical Exam Physical Exam: General- No acute distress Head- atraumatic Eyes- PERRL, EOMI, ENT- oropharynx clear Neck- supple, no JVD Lungs- clear to auscultation Heart- regular rhythm; no murmur Abdomen- normal bowel sounds, +RLQ tender Extremities- no calf tenderness Neuro- alert, oriented x 3; PERRL, EOMI; no facial palsy; no dysarthria Skin- warm & dry Results & Data Vital Signs (Past 12 Hours) Vital Signs Temp Pulse Pulse Resp BP Pulse Ox 05/08/19 16:00 69 05/08/19 10:51 37 C 69 20 131/83 96 05/08/19 08:15 36.6 C 69 20 151/93 H 93 05/08/19 08:00 79 (1) Depression Depression Type: unspecified Qualified Code(s): F32.9 - Major depressive disorder, single episode, unspecified (2) HTN (hypertension) Hypertension type: essential hypertension Qualified Code(s): I10 - Essential (primary) hypertension
--- NOTE | 2019-05-09 08:07 | Discharge Summary ---
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 Nieves, HTN, depression with anxiety, diet-controlled T2DM with most recent A1c 5.7, chronic anemia, chronically elevated troponin, IBS who presents to [facility] ED secondary to SOB x 1 day. Sx started approx 5:30 a.m. She developed shortness of breath with exertion and substernal chest tightness. Chest tightness was non radiating, "nagging," felt difficulty taking deep breath, constant. Denies recent illness, f/c/s, dizziness, lightheaded, exertional chest pain, SOB at res t, hemoptysis, wheezing, cough, n/v/d, abdominal pain, melena, hematochezia. She is anuric. Has had diarrhea but not unusual for her given her hx of IBS. She recently ended her menses which was 2 weeks late. Lasted 4-5 days, no excessive heavy flow or change in menstruation. Recently admitted to [facility] 04/22- for chest pain and elevated troponin. Troponin elevated baseline 0.3, but upon admission was 0.4-0.5. Cardiology consulted. Initial echocardiogram was obtained and unchanged from prior revealing preserved ejection fraction. Stress echocardiogram was recommended but was unable to be performed due to patient being significantly hypertensive. Cardiology deferred hypertensive management to nephrology given patient's ESRD. She was given Procrit during admission on 04/14. Was also placed on potassium supplementation to hypokalemia. Lastly she had RLQ pain. Pelvis U/S suggested small 3cm complex cyst likely corpus luteum cyst. There was concern for possible rupture of cyst causing pain. Post discharge patient admits to being compliant with her peritoneal dialysis, last treatment last evening. Also admits to being compliant with medications. Her last dose of Epogen was on 05/02. While in ED pt was initially treated with nebulizer treatment. Pt feels this did help her breathing. Admission Exam Per Admitting Provider Constitutional: WD/WN, vitals as above, NAD, sitting up in bed, pallor, pleasant, conversing easily Head: Normocephalic, Atraumatic Eyes: PERRL, conjunctivae normal, anicteric sclerae ENMT: external ear and nose normal, oropharynx normal Neck: trachea midline, no thyromegaly normal visual inspection Respiratory: normal respiratory effort, lungs clear to auscultation, no wheeze, rales, rhonchi. Normal insp/exp effort, no accessory muscle use Cardiovascular: tachycardic rate, regular rhythm, no murmur, trace lower ext edema Vessels: no JVD or carotid bruit Chest: normal inspection of chest Abdomen: normal bowel sounds, soft, nontender, no hepatosplenomegaly +PD cath dresing CDI Musculoskeletal: no cyanosis or clubbing, extremities motor strength 5/5 Skin: no rashes, warm and dry normal turgor Neurologic: PERRL, EOMI, accommodation nl, no face palsy, no dysarthria CN's II-XI intact bilaterally and moves all extremities Psychiatric: A+Ox3, euthymic affect Lymphatic: no cervical or axillary lymphadenopathy : deferred Principal Diagnosis (1) SOB (shortness of breath (2) Symptomatic anemia (3) Anemia due to end stage renal disease (4) Elevated troponin (5) CKD (chronic kidney disease) stage V requiring chronic dialysis (6) Hypertension (7) Abdominal pain Discharge Exam General- No acute distress Head- atraumatic Eyes- PERRL, EOMI, ENT- oropharynx clear Neck- supple, no JVD Lungs- clear to auscultation Heart- regular rhythm; no murmur Abdomen- normal bowel sounds, +RLQ tender Extremities- no calf tenderness Neuro- alert, oriented x 3; PERRL, EOMI; no facial palsy; no dysarthria Skin- warm & dry Discharge Data Allergies Allergy/AdvReac Type Severity Reaction Status Date / Time cefaclor Allergy Intermediate Rash Verified 05/05/19 15:27 amoxicillin AdvReac Mild VOMITING Verified 05/05/19 15:27 clavulanic acid AdvReac Mild VOMITING Verified 05/05/19 15:27 Consultations 05/05/19 15:38 ED Decision to Admit Stat 05/05/19 16:02 Consult Nephrology Routine 05/05/19 17:02 Consult Case Management - Discharge Planning Routine Ordered Studies 05/08/19 03:09 CT abd pelvis wo con Urgent CT SCAN OF THE ABDOMEN AND PELVIS WITHOUT IV CONTRAST CLINICAL HISTORY: Right-sided abdominal pain. COMPARISON STUDY: Abdominal CT dated 04/23/2019. TECHNIQUE: CT scan of the abdomen and pelvis is performed from the lung bases to the proximal femora. Images are reviewed in the axial, sagittal, and coronal planes. IV contrast was not administered for this examination. Note that the examination is suboptimal without IV contrast. A dose lowering technique was utilized adhering to the principles of ALARA. CT DOSE: 1011.37 mGy.cm FINDINGS: Lung bases: The heart is enlarged and there is trace pericardial effusion. The coronary arteries are densely calcified. There is diminished attenuation of the cardiac blood pool as compared to the myocardium suggesting anemia. A small hiatal hernia is noted. The lung bases are clear. Liver: The unenhanced liver is normal in size, contour, and attenuation. There is no intrahepatic biliary ductal dilatation. Gallbladder: Surgically absent noting clips in the gallbladder fossa. Spleen: Normal in size and attenuation. Pancreas: Unremarkable. Adrenal glands: Unremarkable. Kidneys: The unenhanced [place] kidneys are markedly atrophic and without hydronephrosis. There are no renal calculi identified. There is no evidence of contour deforming renal mass lesion. Abdominal vasculature: The abdominal aorta is normal in course and caliber noting mild atherosclerotic calcification. Bowel: There are scattered colonic diverticula without CT evidence of acute diverticulitis. No bowel obstruction is seen. The appendix is normal as visualized. Peritoneum: A peritoneal dialysis catheter is coiled in the right mid abdomen from an infraumbilical approach. There are numerous small foci of intraperitoneal free air, likely related to the presence of a dialysis catheter. There is trace free fluid identified in the abdomen and pelvis. There is a midline surgical scar. An umbilical hernia contains fluid. Lymphadenopathy: None. Pelvic viscera: A densely calcified structure in the right hemipelvis represents an atrophic renal transplant. The bladder is decompressed and not well e valuated. The bladder wall appears sequentially thickened and there is faint pericystic inflammation. The uterus and adnexa are normal as visualized. Skeletal structures: The skeletal structures are osteopenic. Degenerative sclerosis is noted in the sacroiliac joints. No lytic or blastic lesions are seen. IMPRESSION: 1. A peritoneal dialysis catheter is present in the right mid abdomen. There are numerous small foci of intraperitoneal free air as well as a small volume of intraperitoneal free fluid. These findings are likely due to the presence of an indwelling catheter and peritoneal dialysis. Clinical correlation will be essential. 2. Although decompressed, the bladder wall appears thickened and there is pericystic inflammation. Findings suggest cystitis. 3. Cardiomegaly. 4. Additional findings as above. Electronically signed by: North Quintero M.D. 05/08/2019 9:56 AM Dictated: 05/08/1947 Transcribed: 05/08/1950 XR chest 1V portable CLINICAL HISTORY: Dyspnea COMPARISON STUDY: 04/21/2019 FINDINGS: The heart is enlarged. There is diffuse elevation of interstitium with groundglass opacities consistent with congestive failure/fluid overload with mild pulmonary edema. There is no lobar consolidation. There are no pleural effusions.[ IMPRESSION: Cardiomegaly and mild pulmonary edema pattern. Clinical and radiographic follow-up is recommended Electronically signed by: Win Foster M.D. 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 Nieves, HTN, depression with anxiety, diet-controlled T2DM with most recent A1c 5.7, chronic anemia, chronically elevated troponin, IBS who presents to [facility] ED secondary to SOB x 1 day. Hemoglobin on admission 6.8 Received 1 unit PRBC on 05/05 Hgb today 9.2 Received EPO during dialysis Monitor H/H (4) Elevated troponin: Chronic elevated troponin Trop on admission 0.303 EKG showed no ischemic changes Recently admitted 04/21- 04/25 with chest pain and underwent echocardiogram. She was also seen and evaluated by cardiology who recommended stress echo but unable to perform due to uncontrolled hypertension Stable (5) CKD (chronic kidney disease) stage V requiring chronic dialysis: ESRD on PD Had HD done today but was not able to tolerate nephrology on board Continue phoslo, sevelamer, sensipar Case discussed with nephrology and ok from nephrology standpoint to discharge home Will get PD done tonight at home (Pt said that she is comfortable to do it ) OK from nephrology to discharge home (6) HTN (hypertension): BP stable Continue amlodipine and coreg as outpt Continue Enalapril 5mg BID Monitor BP (7) Prolonged QT interval: QTC improves from 540 to 497 Will monitor closely while on Zoloft Avoid QTC prolonging drugs (8) Abdominal pain: Abdominal pain associated with diarrhea Pain located in the RLQ CT abdomen showed peritoneal dialysis catheter is present in the right mid abdomen. There are numerous small foci of intraperitoneal free air as well as a small volume of intraperitoneal free fluid. These findings are likely due to the presence of an indwelling catheter and peritoneal dialysis. Tolerated diet Pain control (9) Depression: On zoloft, mirtazapine monitor QTC (10) DVT prophylaxis: No heparin subq due to low hemoglobin On SCD Disposition Will discharge home today Follow up with Dr. Aldridge on 05/14 @ 10:45 AM Total Time Total Time Spent Total Time Spent (In Minutes): 35 minutes Total Time Includes: Examination of the Patient, Discharge Planning, Medication Reconciliation, Communication With Other Providers and Other Discharge Plan Discharge Items Patient Disposition: Home - Self-Care Reason For Visit: SYMPTOMATIC ANEMIA Discharge Diagnosis: (1) SOB (shortness of breath (2) Symptomatic anemia (3) Anemia due to end stage renal disease (4) Elevated troponin (5) CKD (chronic kidney disease) stage V requiring chronic dialysis (6) Hypertension (7) Abdominal pain Activity: Resume your previous activity Activity Comment: As tolerated Non-emergency contact: Primary Care Provider Call non-emergency contact if: you have any medication questions Follow-up/Referrals: Adolph Aldridge MD [Primary Care Provider] - Diet: Dialysis Renal Addtl Attending Provider Instructions: Follow up with your primary care provider Dr. Aldridge on 05/14 @ 10:45 AM Next Peritoneal dialysis scheduled for tonight Follow up with nephrology Monitor your blood pressure Pending Studies at Discharge: No Stand-Alone Forms: [facility] Medications and DC Order Prescriptions: New enalapril maleate 5 mg Tablet 5 mg PO BID 30 Days Qty: 60 RF: 0 Continued loratadine 10 mg tablet 10 mg PO HS PRN (Reason: Allergy Symptoms) RF: 0 gabapentin [Neurontin] 400 mg capsule 400 mg PO BID RF: 0 cinacalcet [Sensipar] 30 mg tablet 30 mg PO QPM RF: 0 amlodipine [Norvasc] 5 mg tablet 10 mg PO DAILY RF: 0 acetaminophen [Tylenol Extra Strength] 500 mg Tablet 1,000 mg PO Q6H PRN (Reason: Pain) RF: 0 carvedilol 12.5 mg tablet 12.5 mg PO BID RF: 0 sumatriptan succinate [Imitrex] 50 mg tablet 50 mg PO DIRECTED MDD 100 MG/24 HOURS PRN (Reason: Migraine Headache) RF: 0 albuterol sulfate [Ventolin HFA] 90 mcg/actuation HFA aerosol inhaler 2 puff Inhalation QID PRN (Reason: Shortness Of Breath Or Wheezing) RF: 0 sertraline [Zoloft] 50 mg tablet 50 mg PO QAM RF: 0 calcium acetate 667 mg capsule 3,335 mg PO TIDM RF: 0 calcium acetate 667 mg capsule 2,668 mg PO DIRECTED RF: 0 mirtazapine 30 mg Tablet 30 mg PO HS RF: 0 gabapentin [Neurontin] 400 mg capsule 800 mg PO HS RF: 0 calcium acetate 667 mg capsule 1,334 mg PO DIRECTED RF: 0 gabapentin 400 mg Capsule 400 mg PO QDL RF: 0 sevelamer carbonate 800 mg tablet 1,600 mg PO TIDM RF: 0 famotidine [Pepcid] 40 mg Tablet 40 mg PO DAILY RF: 0 potassium chloride 20 mEq tablet extended release 20 meq PO DAILY Qty: 30 RF: 1 Discharge Orders: Discharge Order (Routine); Ordered 05/08/19 Ordered By: Ambreen Lutz Admission Data Admit Date/Time: 05/05/19 16:11 Attending Provider: Ambreen Lutz Admit Provider: Juan Victor Primary Care Provider: Adolph Aldridge Other Providers: Leah Nieves ; Lindsay Garcia I. ; Juan Victor Other Interventions: Discharge Summary Assessment (RN) Last Done: 05/08/19 17:38 DC Date/Time DO NOT enter until pt leaves facility: 05/08/19 17:58
== END 2019-05-08 17:58 | disposition home or self-care (01) | DRG 291 ==
LOC: ED 14:24 → 2S 16:11 → SUATTDRO 16:11 → 2S 16:42

== ENCOUNTER 2019-05-23 14:00 | Inpatient (IN) ==
[2019-05-23] MEDS ORDERED: MoRPHine SULFATE 4 MG/ML 1 ML CARP\\VIAL IV STA (14:45)
[2019-05-23 16:03] LABS: Hematocrit (blood only) 25.4 % (37-47); Hemoglobin 8.4 g/dL (12.0-16.0); Mean Corpuscular Hemoglobin 32.6 pg (25-34); Mean Corpuscular Hgb Conc 33.1 g/dL (32-36); Mean Corpuscular Volume 98.4 fL (80-100); Mean Platelet Volume 9.1 fL (7.4-10.4); Platelet Count 137 K/uL (130-400); RDW Coefficient of Variation 15.8 % (11.5-14.5); Red Blood Count 2.58 M/uL (4.2-5.4); White Blood Count 9.71 K/uL (4.8-10.8)
[2019-05-23 16:26] LABS: Basophils # (auto) 0.02 K/uL (0-0.2); Basophils % (auto) 0.2 %; Eosinophils # (auto) 0.24 K/uL (0-0.5); Eosinophils % (auto) 2.5 %; Immature Granulocytes # (auto) 0.02 K/uL (0.00-0.02); Immature Granulocytes % (auto) 0.2 %; Lymphocytes # (auto) 0.68 K/uL (1.2-3.4); Monocytes # (auto) 0.34 K/uL (0.11-0.59); Monocytes % (auto) 3.5 %; Neutrophils # (auto) 8.41 K/uL (1.4-6.5); Neutrophils % (auto) 86.6 %; Ovalocytes 1+
[2019-05-23 16:30] LABS: Albumin Globulin Ratio 0.7 (0.9-2); Albumin Level 2.6 gm/dl (3.4-5.0); BUN Creatinine Ratio 5.4 (10-20); Bilirubin,Total 0.3 mg/dl (0.2-1); Creatinine Clr Calc Pharmacy 6.4 ml/min; Est GFR (African American) 3.2; Est GFR (Non-African American) 2.7; Globulin 3.9 gm/dl (2.5-4.0); Potassium 4.9 mmol/L (3.5-5.1); Total Protein 6.5 gm/dl (6.4-8.2); Troponin I 0.229 ng/ml (0-0.045)
[2019-05-23 16:31] LABS: D Dimer 2610 ug/L FEU (0-500)
--- NOTE | 2019-05-23 16:50 | XRay Report ---
XR chest 2V routine CLINICAL HISTORY: Chest pain. COMPARISON STUDY: Chest radiograph May 05, 2019. FINDINGS: Moderate cardiomegaly is noted. This is unchanged. There is no pneumothorax or pleural effu warren. Interstitial thickening and bilateral opacities are noted. Airspace opacities have progressed s marilyn exam May 05, 2019. There are cholecystectomy clips. IMPRESSION: 1. Progression of interstitial thickening and bilateral opacities. The findings may reflect pulmonary edema or an infectious process. Radiographic follow-up is recommended. 2. Moderate cardiomegaly. Electronically signed by: Sebastian Mcclain M.D. 05/23/2019 4:48 PM
--- NOTE | 2019-05-23 16:52 | XRay Report ---
XR lumbar spine min 4V routine CLINICAL HISTORY: Fall. COMPARISON STUDY: Head CT February 15, 2017. FINDINGS: Alignment of the lumbar spine is anatomic. There is no acute fracture. Disc spaces are pres erved. Vertebral body heights are maintained. A peripherally calcified density within the right lower quadrant represents an old allograft. Peritoneal dialysis catheter is partially imaged. There are ch olecystectomy clips. Bowel gas pattern is normal. IMPRESSION: No acute lumbar spine fracture or subluxation. Electronically signed by: Sebastian Mcclain M.D. 05/23/2019 4:50 PM
--- NOTE | 2019-05-23 17:34 | Ultrasound Report ---
BILATERAL LOWER EXTREMITY VENOUS DOPPLER CLINICAL HISTORY: Shortness of breath. COMPARISON STUDY: Bilateral lower extremity venous Doppler ultrasound August 11, 2017. TECHNIQUE: Sonography of the deep venous system of the bilateral lower extremities was performed. Co mpression and augmentation were evaluated. FINDINGS: The bilateral common femoral, superficial femoral and popliteal veins were compressible. A ugmentation was normal. Flow was shown within the deep calf vessels. IMPRESSION: No evidence of deep venous thrombus within the bilateral lower extremities. Electronically signed by: Sebastian Mcclain M.D. 05/23/2019 5:33 PM
[2019-05-23] MEDS ORDERED: MoRPHine SULFATE 2 MG/ML CARP IV STA (17:40)
[2019-05-23] MEDS ORDERED: OPTIRAY 320 125ml IV PRN (18:03)
--- NOTE | 2019-05-23 18:25 | CT Scan Report ---
CT ANGIOGRAPHY OF THE CHEST, PULMONARY EMBOLUS PROTOCOL CLINICAL HISTORY: PE- +dimer. On dialysis. COMPARISON STUDY: Chest CT May 06, 2017. Chest radiograph performed earlier today. TECHNIQUE: Following IV administration of 89 mL of Optiray-320, helical axial images of the chest wer e obtained utilizing the pulmonary embolus protocol. Maximal intensity projections and sagittal and coronal reformats were viewed on an independent 3D workstation. IV contrast was administered without complication. Automated exposure control was utilized for the study. A dose lowering technique was utilized adhering to the principles of ALARA. CT DOSE: 682.04 mGy.cm FINDINGS: No pulmonary emboli are identified although the segmental and subsegmental pulmonary arter ies are suboptimally assessed due to respiratory motion. The heart is moderately enlarged. There is m oderate coronary artery calcification. No thoracic aortic dissection is present. Central airways are patent. Interlobular septal thickening is noted. Extensive bilateral airspace opacities within the teagan ngs are also noted. There are trace bilateral pleural effusions. No pneumothorax is present. Bony tho rax is unremarkable. Small amount of perihepatic ascites is noted IMPRESSION: 1. No pulmonary emboli identified although segmental and subsegmental pulmonary arteries suboptimally assessed due to respiratory motion. 2. Interstitial pulmonary edema. In addition, extensive bilateral airspace opacities which favor alve olar edema however bilateral pneumonia could appear similar. 3. Trace bilateral pleural effusions. 4. Moderate cardiomegaly and coronary artery calcification. 5. Small amount of perihepatic ascites. Electronically signed by: Sebastian Mcclain M.D. 05/23/2019 6:24 PM
[2019-05-23] MEDS ORDERED: FUROSEMIDE 80 MG in SYRINGE 0 ML IV ONE (19:41)
[2019-05-23] MEDS ORDERED: carvediloL 25 MG TAB PO ONE (19:41)
[2019-05-23] MEDS ORDERED: ENALAPRIL MALEATE 5 MG TAB PO STA (19:41)
[2019-05-23 20:08] LABS: Partial Thromboplastin Time 26.2 Seconds (21.0-31.0)
[2019-05-23] MEDS ORDERED: NITROGLYCERIN SL 0.4 MG/TAB TAB SL STA (20:16)
--- NOTE | 2019-05-23 20:23 | History & Physical Report ---
Date of Service May 23, 2019 Assessment & Plan (1) Shortness of breath: Secondary to pulmonary congestion ESRD on PD history of FSGS status post failed renal transplantation ? non-compliance Chest pain, troponin elevation secondary to uncontrolled high blood pressure ? Medication non-compliance DM2, diet controlled, well-controlled as of recent hemoglobin A1c of 5.30 January 2019 mood disorder, at baseline Chronic umbilical hernia pain chronic anemia secondary to CKD, hemoglobin at baseline ongoing tobacco abuse. PCU Hemodialysis in a.m. (ER provider already in touch with Dr. Saucedo.) Facilitate home BP meds, may need dose titration or additional agent. ISS BG goal 1 40-1 80 Nicotine patch PRN. DVT prophylaxis. Heparin subcu Full code History of Present Illness Chief Complaint: Chest pain, S OB Primary Care Provider: Adolph Aldridge MD History obtained from patient and records. Medical history significant for hypertension, ESRD on PD, history of FSGS status post failed renal transplantation, DM2, diet controlled, mood disorder, history of umbilical hernia, chronic anemia (baseline hemoglobin of 8-9), history of migraine, ongoing tobacco abuse. Recent confinement 2 weeks ago for shortness of breath, symptomatic anemia. 2 days history of substernal pain with shortness of breath, no cough symptoms. Compliant with home PD as per patient. Worsening umbilical hernia pain, no constipation, no diarrhea symptoms. Patient to transition to hemodialysis however next week as per nephrology recommendations. SBP noted to be 200s at the ER. Patient received Coreg, Enalapril, IV Lasix as per relief worker's recommendation as per ER provider. Medical History as above Surgical History : Vascular procedures, section, cystoscopy, knee surgery, eye surgery, BTL, renal biopsy, kidney transplant Family History : SLE, Crohn's disease, high blood pressure, depression Personal/Social history : Few cigarettes a day, no EtOH intake Allergies Allergy/AdvReac Type Severity Reaction Status Date / Time cefaclor Allergy Intermediate Rash Verified 05/23/19 15:41 amoxicillin AdvReac Mild VOMITING Verified 05/23/19 15:41 clavulanic acid AdvReac Mild VOMITING Verified 05/23/19 15:41 Home Medications Home Medications Medication Instructions Recorded Confirmed Type albuterol sulfate [Ventolin HFA] 2 puff INHALATION QID PRN 05/30/18 05/23/19 History calcium acetate 2,668 mg PO DIRECTED 05/30/18 05/23/19 History calcium acetate 3,335 mg PO TIDM 05/30/18 05/23/19 History sertraline [Zoloft] 50 mg PO QAM 05/30/18 05/23/19 History sumatriptan succinate [Imitrex] 50 mg PO DIRECTED PRN MDD 100 05/30/18 05/23/19 History MG/24 HOURS loratadine 10 mg PO HS PRN 07/30/18 05/23/19 History mirtazapine 30 mg PO HS 10/08/18 05/23/19 History amlodipine [Norvasc] 10 mg PO DAILY 11/03/18 05/23/19 History cinacalcet [Sensipar] 30 mg PO QPM 11/03/18 05/23/19 History gabapentin [Neurontin] 800 mg PO HS 11/26/18 05/23/19 History calcium acetate 1,334 mg PO DIRECTED 01/24/19 05/23/19 History gabapentin 400 mg PO DIRECTED 01/24/19 05/23/19 History famotidine [Pepcid] 40 mg PO DAILY 04/21/19 05/23/19 History sevelamer carbonate 1,600 mg PO TIDM 04/21/19 05/23/19 History potassium chloride 20 meq PO DAILY #30 tab 04/25/19 05/23/19 Rx carvedilol 12.5 mg PO BID 05/05/19 05/23/19 History enalapril maleate 5 mg PO BID 30 Days #60 tab 05/08/19 05/23/19 Rx acetaminophen [Tylenol Extra 1,000 mg PO Q6H PRN 05/23/19 05/23/19 History Strength] Past Med/Surg History Medical History Fistula of artery (Chronic) Diastolic CHF (Chronic) "echo 04/18/17 - EF 60-65%, grade II diastolic dysfunction" FSGS (focal segmental glomerulosclerosis) (Chronic) DM2 (diabetes mellitus, type 2) (Chronic) HTN (hypertension) (Chronic) CKD (chronic kidney disease) stage V requiring chronic dialysis (Chronic) Peritoneal dialysis catheter in place (Chronic) Dependence on peritoneal dialysis (Acute) Depression (Chronic) Surgical History H/O knee surgery (Resolved) H/O: (Resolved) H/O tubal ligation (Resolved) H/O eye surgery (Resolved) H/O section (Resolved) History of cholecystectomy (Resolved) H/O hernia repair (Resolved) Family History Grandmother Hx of CABG Mother Diabetes Father Crohn's disease Social History Preferred Language: Slovak Communication Ability: Effective Local City Driver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 Beliefs That Will Affect Care: None marital status: Current Living Situation: Family Current Living Situation Comment: [facility] current occupational status: employed Feels Safe at Home: Yes Safety Concerns: Feels Safe At This Time Smoking Status: Current every day smoker Tobacco Type: cigarettes ; Cigarettes Per Day: 3 ; Do You Dip or Chew Tobacco: No ; Second Hand Exposure: No ; Tobacco Cessation Education Requested by Patient: No Hx Alcohol Use: Yes Alcohol Intake Frequency Comment: q3 months Hx Substance Use: No Review of Systems Review of Systems: As per HPI, all 10 systems reviewed, all other ROS negative Physical Exam Physical Exam: GENERAL: Comfortable, obese, no respiratory distress SKIN: Sallow , warm HEENT: Pale palpebral conjunctivae, no ptosis, dry buccal mucosa NECK : Supple, short neck, no tenderness CHEST : Decreased breath sounds, no tenderness HEART : RRR, no obvious murmurs ABDOMEN: Some distention, tender umbilical protuberance EXTREMITIES : Minimal LE swelling/tenderness, no other conspicuous deformities noted NEUROLOGIC : Coherent, no facial asymmetry, no other gross focality Results & Data Vital Signs (Past 12 Hours) Vital Signs Temp Pulse Pulse Resp BP BP Pulse Ox 05/23/19 20:00 90 17 180/126 H 100 05/23/19 19:45 92 H 16 100 05/23/19 19:30 92 H 16 199/140 H 100 05/23/19 19:15 93 H 27 H 99 05/23/19 19:00 90 19 208/130 H 98 05/23/19 18:45 90 17 100 05/23/19 18:41 91 H 91 H 16 204/132 H 204/132 H 99 05/23/19 18:40 91 H 9 L 196/128 H 05/23/19 16:15 90 23 98 05/23/19 16:00 87 87 20 192/104 H 192/104 H 97 05/23/19 15:45 93 H 17 100 05/23/19 15:30 94 H 19 97 05/23/19 15:15 93 H 18 98 05/23/19 15:00 93 H 24 98 05/23/19 14:05 37.2 C 99 H 20 181/109 H 99 Laboratory Results Laboratory Results WBC 9.71 K/uL (4.8-10.8) 05/23/19 15:35 RBC 2.58 M/uL (4.2-5.4) L 05/23/19 15:35 Hgb 8.4 g/dL (12.0-16.0) L 05/23/19 15:35 Hct 25.4 % (37-47) L 05/23/19 15:35 MCV 98.4 fL (80-100) 05/23/19 15:35 MCH 32.6 pg (25-34) 05/23/19 15:35 MCHC 33.1 g/dL (32-36) 05/23/19 15:35 RDW Std Deviation 56.0 fL (36.4-46.3) H 05/23/19 15:35 RDW Coeff of Laith 15.8 % (11.5-14.5) H 05/23/19 15:35 Plt Count 137 K/uL (130-400) 05/23/19 15:35 MPV 9.1 fL (7.4-10.4) 05/23/19 15:35 Immature Gran % (Auto) 0.2 % 05/23/19 15:35 Neut % (Auto) 86.6 % 05/23/19 15:35 Lymph % (Auto) 7.0 % 05/23/19 15:35 Brown % (Auto) 3.5 % 05/23/19 15:35 Eos % (Auto) 2.5 % 05/23/19 15:35 Baso % (Auto) 0.2 % 05/23/19 15:35 Immature Gran # (Auto) 0.02 K/uL (0.00-0.02) 05/23/19 15:35 Neut # (Auto) 8.41 K/uL (1.4-6.5) H 05/23/19 15:35 Lymph # (Auto) 0.68 K/uL (1.2-3.4) L 05/23/19 15:35 Brown # (Auto) 0.34 K/uL (0.11-0.59) 05/23/19 15:35 Eos # (Auto) 0.24 K/uL (0-0.5) 05/23/19 15:35 Baso # (Auto) 0.02 K/uL (0-0.2) 05/23/19 15:35 Ovalocytes 1+ 05/23/19 15:35 APTT 26.2 Seconds (21.0-31.0) 05/23/19 15:35 PTT Ratio 1.0 05/23/19 15:35 D-Dimer 2610 ug/L FEU (0-500) H* 05/23/19 15:35 Sodium 139 mmol/L (136-145) 05/23/19 15:35 Potassium 4.9 mmol/L (3.5-5.1) 05/23/19 15:35 Chloride 105 mmol/L (98-107) 05/23/19 15:35 Carbon Dioxide 22 mmol/L (21-32) 05/23/19 15:35 Anion Gap 11.0 (3-11) 05/23/19 15:35 BUN 82 mg/dl (7-18) H 05/23/19 15:35 Creatinine 15.30 mg/dl (0.6-1.2) H* 05/23/19 15:35 Est Cr Clr Drug Dosing 6.4 ml/min 05/23/19 15:35 Est GFR ( Amer) 3.2 05/23/19 15:35 Est GFR (Non-Af Amer) 2.7 05/23/19 15:35 BUN/Creatinine Ratio 5.4 (10-20) L 05/23/19 15:35 Glucose 90 mg/dl (70-99) 05/23/19 15:35 Calcium 8.0 mg/dl (8.5-10.1) L 05/23/19 15:35 Total Bilirubin 0.3 mg/dl (0.2-1) 05/23/19 15:35 AST 21 U/L (15-37) 05/23/19 15:35 ALT 19 U/L (12-78) 05/23/19 15:35 Alkaline Phosphatase 141 U/L (45-117) H 05/23/19 15:35 Troponin I 0.229 ng/ml (0-0.045) H* 05/23/19 15:35 Total Protein 6.5 gm/dl (6.4-8.2) 05/23/19 15:35 Albumin 2.6 gm/dl (3.4-5.0) L 05/23/19 15:35 Globulin 3.9 gm/dl (2.5-4.0) 05/23/19 15:35 Albumin/Globulin Ratio 0.7 (0.9-2) L 05/23/19 15:35 Lipase 143 U/L (73-393) 05/23/19 15:[address] angio chest: 1. No pulmonary emboli identified although segmental and subsegmental pulmonary arteries suboptimally assessed due to respiratory motion. 2. Interstitial pulmonary edema. In addition, extensive bilateral airspace opacities which favor alveolar edema however bilateral pneumonia could appear similar. 3. Trace bilateral pleural effusions. 4. Moderate cardiomegaly and coronary artery calcification. 5. Small amount of perihepatic ascites. CT abdomen pelvis: 1. Moderate peritoneal fluid within the pelvis and small amount of peritoneal fluid within the abdomen. This represents peritoneal dialysate. Mild increased attenuation of this fluid is nonspecific but may be related to recent contrast- enhanced CT. A small amount of hemorrhage could appear similar but is considered less likely. 2. No significant change in a small fluid and fat-containing umbilical hernia. 3. No bowel obstruction. 4. Cardiomegaly with evidence for pulmonary edema. Trace bilateral pleural effusions. EKG as per my interpretation :Rate 100, NSR, normal axis, T wave flattening inferior leads, PVCs
--- NOTE | 2019-05-23 20:54 | CT Scan Report ---
CT OF THE ABDOMEN AND PELVIS WITHOUT CONTRAST CLINICAL HISTORY: Worsening hernia pain. COMPARISON STUDY: CT of the abdomen and pelvis May 08, 2019. Abdominal ultrasound April. TECHNIQUE: Axial images of the abdomen and pelvis were obtained without IV contrast. Images were revi ewed in the axial, sagittal, and coronal planes. Automated exposure control was utilized for the darrel dy. A dose lowering technique was utilized adhering to the principles of ALARA. FINDINGS: Imaged portions of the lower chest demonstrate cardiomegaly with trace pericardial fluid. T here are trace bilateral pleural effusions. Interlobular septal thickening and groundglass opacities are noted within the lower lungs. A small amount of abdominal fluid is noted with a moderate amount o f pelvic peritoneal fluid. A peritoneal dialysis catheter terminates within the right lower quadrant. Attenuation of the fluid is slightly increased. There is no evidence for a bowel obstruction. Evalua tion of the abdomen and pelvis is suboptimal as unenhanced examination. There is no biliary ductal di latation status post cholecystectomy. Unenhanced images of the spleen, adrenal glands and pancreas ar e unremarkable. There is marked atrophy of the [place] kidneys. An atrophic calcified right lower quad rant allograft is noted. There is colonic diverticulosis without evidence for acute diverticulitis. A ppendix is partially obscured but visualized portions are normal. A small fat and fluid containing um bilical hernia is similar to prior exam. No suspicious osseous lesions are present. IMPRESSION: 1. Moderate peritoneal fluid within the pelvis and small amount of peritoneal fluid within the abdome n. This represents peritoneal dialysate. Mild increased attenuation of this fluid is nonspecific but may be related to recent contrast-enhanced CT. A small amount of hemorrhage could appear similar but is considered less likely. 2. No significant change in a small fluid and fat-containing umbilical hernia. 3. No bowel obstruction. 4. Cardiomegaly with evidence for pulmonary edema. Trace bilateral pleural effusions. Electronically signed by: Sebastian Mcclain M.D. 05/23/2019 8:52 PM
[2019-05-23] MEDS ORDERED: TRAMADOL HCL 50 MG TABLET ONE (21:19)
[2019-05-23] MEDS ORDERED: CALCIUM ACETATE 667 MG CAP PO PRN ×2 (21:33)
[2019-05-23] MEDS ORDERED: PROMETHAZINE HCL 12.5 MG in SODIUM CHLORIDE 0.9% 50 ML IV PRN (21:33)
[2019-05-23] MEDS ORDERED: CARBOHYDRATES FOR HYPOGLYCEMIA PO PRN (21:33)
[2019-05-23] MEDS ORDERED: GLUCOSE 10 TABS/TUBE PO PRN (21:33)
[2019-05-23] MEDS ORDERED: DEXTROSE 50% 50 ML SYRINGE IV PRN (21:33)
[2019-05-23] MEDS ORDERED: GLUCOSE 40% GEL 15 GM TUBE PO PRN (21:33)
[2019-05-23] MEDS ORDERED: GLUCAGON FOR INJ 1 MG VIAL SQ PRN (21:33)
[2019-05-23] MEDS ORDERED: CINACALCET 30 MG PO SCH (21:33)
[2019-05-23] MEDS ORDERED: NITROGLYCERIN SL 0.4 MG/TAB TAB SL PRN (21:33)
[2019-05-23] MEDS ORDERED: TRAMADOL HCL 50 MG TABLET PO PRN (21:33)
[2019-05-23] MEDS ORDERED: LORATADINE 10 MG TAB PO PRN (21:33)
[2019-05-23] MEDS ORDERED: ACETAMINOPHEN 325 MG TAB PO PRN (21:33)
[2019-05-23 21:58] LABS: Pregnancy Test, Serum Negative (Negative)
[2019-05-23 22:13] LABS: Magnesium 2.2 mg/dl (1.8-2.4); Troponin I 0.223 ng/ml (0-0.045)
[2019-05-23] MEDS: INSULIN ASPART 100 UNITS/ML 3 ML PEN SC SCH (22:33)
[2019-05-23] MEDS: GABAPENTIN 800 MG TAB PO SCH (22:49)
[2019-05-23] MEDS: MIRTAZAPINE TAB 15 MG TAB PO SCH (22:49)
[2019-05-23] MEDS: CALCIUM ACETATE 667 MG CAP PO SCH (22:51)
[2019-05-23] MEDS: HEPARIN SOD 5,000 UNIT/0.5 ML VIAL SQ SCH (22:52)
--- NOTE | 2019-05-23 23:07 | Emergency Department Note ---
Entered by Mraía Hoffman acting as a scribe for ED Provider Note CHIEF COMPLAINT: Cardiac Assessment HISTORY OF PRESENT ILLNESS: The patient is a 33 year old female who presents to the Emergency Room with complaints of persistent shortness of breath starting yesterday. The patient states that starting yesterday she started having the feeling that she was suffocating. She reports that it feels like she is trying to get air, but not enough is going in. She states that she has tried to use her inhalers with no relief. She notes that along with it, she has been having chest pain. The patient notes that she is also having lower back pain from a fall yesterday. She reports that her kids put something slippery on the floor and she ended up landing right on her butt. She currently rates her pain as a 10/10 in severity. She reports that she tried taking Tylenol with no relief. The patient complains of intermittent abdominal pain from her umbilical hernia, but denies having it now. She notes that she has not been able to make an appointment for her hernia that has worked with her schedule. The patient notes that she doesnt urinate due to her dialysis and reports that she always has diarrhea. She notes that she does use Heparin in her bag in her abdomen once a week. The patient denies upper back pain, tingling, hitting her head, and arm pain. Pt denies LOC, headache, fevers, chills, diaphoresis, visual changes, neck pain, nausea, vomiting, melena, hematochezia, urinary symptoms, numbness, weakness, lymphadenopathy, rash, or other complaints. REVIEW OF SYSTEMS: See HPI for pertinent positives and negatives. A total of ten systems were reviewed and were otherwise negative. PMHx/PSHx: CKD, HTN, DM2, FSGS, CHF, C- section, Tubal Ligation, Cholecystectomy, Hernia Repair SOCIAL HISTORY: Patient lives at home with her family and fiance. She is previously and is currently employed. She does smoke cigarettes and drinks alcohol once every 3 months. She denies any use of drugs. PHYSICAL EXAM: GENERAL: Awake, alert, uncomfortable appearing, in no distress HENT: Normocephalic, atraumatic. Oropharynx unremarkable. EYES: PERRL. Normal conjunctiva. Sclera non-icteric. NECK: Inspection normal. Non-tender. Supple. No nuchal rigidity. FROM. No masses. RESPIRATORY: Clear to auscultation. No wheezes. No rales. Normal respiratory effort. CARDIAC: Normal rate. Normal rhythm. No murmurs. No rubs. Extremities warm and well perfused. Pulses equal. No JVD. GI: Soft, non-distended. No tenderness to palpation. No rebound or guarding. Dialysis catheter in the left lower quadrant. Reducible umbilical hernia. RECTAL: Deferred. MUSCULOSKELETAL: Atraumatic. Chest examination reveals no tenderness. The back is symmetrical on inspection without obvious abnormality. Tenderness across the lumbar spine area. There is no CVA tenderness to palpation. No joint edema. UPPER EXTREMITIES: Functional fistula in left upper extremity. LOWER EXTREMITIES: Calves are equal size bilaterally and non-tender. Trace pedal edema. No discoloration. NEURO: Normal sensorium. No sensory or motor deficits noted. SKIN: No rash or jaundice noted. EMERGENCY DEPARTMENT COURSE: 1443: Past medical records reviewed. The patient was evaluated in room C10, and a complete history and physical examination were performed. 1647: I reevaluated the patient and updated her on her test results thus far. She is requesting more pain medications. 1909: I reevaluated the patient and updated her on her test results thus far. 1927: I discussed the patient's case with Dr. Zane Sierra Nephrology. He recommends 25 mg of Carvedilol, 5 mg of Enalapril, and 80 mg of Lasix. He recommends admitting to the hospitalist for hemodialysis tomorrow. 1936: I reevaluated the patient and updated her on her test results. I discussed the treatment plan with her. She verbally agrees and understands. 1940: I discussed the patient's case with Dr. Giovanni Sierra Hospitalist. He will evaluate the patient for further management. MEDICAL DECISION MAKING: C10 Prior records/ancillary studies reviewed. Patient was previously seen for anemia as well as chest pain with elevated troponin. Triage Nursing notes reviewed and agree them. The patient's history was concerning for chest pain as well as a fall and back pain Differential diagnosis: Etiologies such as cardiac ischemia, aortic dissection, pulmonary embolism, pneumonia, pneumothorax, musculoskeletal, infections, pericarditis, myocarditis, esophageal rupture, gastrointestinal, muscular strain, fracture, dislocation, cord compression, as well as others were entertained. Physical examination: As above. No focal neurologic findings. No saddle anesthesia. Reducible umbilical hernia. Patient has some mild pedal edema. Dialysis catheter present in the abdomen without signs of infection. Fistula in the left upper extremity with palpable thrill. ER treatment provided: IV morphine x2 On reassessment the patient felt better. IV Lasix 80 mg Oral enalapril 5 mg Oral carvedilol 25 mg Diagnostic interpretation by me: The electrocardiogram was negative for pathologic change. Tachycardia noted. The labs revealed mild leukocytosis on CBC. Anemia present but better than prior. Troponin mildly elevated but consistent with prior values. Chemistry panel reveals normal potassium but elevated creatinine consistent with end-stage renal disease. D-dimer markedly elevated. Imaging studies: Chest x-ray shows some mild interstitial edema. No pneumonia. Lumbar spine x- ray negative for any significant findings. Suspect lumbar strain. Ultrasound imaging of the lower extremities were performed and this was negative for DVT. CT imaging of the chest was performed. Pulmonary edema noted. Cardiomegaly noted. No PE. The patient is severely hypertensive. She has pulmonary edema. She missed her peritoneal dialysis last night. She states she is scheduled for dialysis but not until Saturday with the hemodialysis center. She is transitioning from peritoneal to hemodialysis. Given the findings I did feel a consultation was necessary with nephrology. Consultation: A consultation was placed with nephrology. IV Lasix and doubling of her regular carvedilol dose was recommended. Admission to the hospital was recommended with tentative dialysis moved to tomorrow. A consultation was placed with the hospitalist. The case was discussed and diagnostics were reviewed. The patient was evaluated in the ER for further treatment. IMPRESSION: Shortness of breath, Pulmonary edema, ESRD, Substernal chest pain PLAN: Being Evaluated by Hospitalist The scribe's documentation has been prepared under my direction and personally reviewed by me in its entirety. I confirm that the note above accurately reflects all work, treatment, procedures, and medical decision making performed by me. Impression & Plan Shortness of breath, Pulmonary edema, ESRD (end stage renal disease), Substernal chest pain Past Med/Surg History Medical History Fistula of artery (Chronic) Diastolic CHF (Chronic) "echo 04/18/17 - EF 60-65%, grade II diastolic dysfunction" FSGS (focal segmental glomerulosclerosis) (Chronic) DM2 (diabetes mellitus, type 2) (Chronic) HTN (hypertension) (Chronic) CKD (chronic kidney disease) stage V requiring chronic dialysis (Chronic) Peritoneal dialysis catheter in place (Chronic) Dependence on peritoneal dialysis (Acute) Depression (Chronic) Surgical History H/O knee surgery (Resolved) H/O: (Resolved) H/O tubal ligation (Resolved) H/O eye surgery (Resolved) H/O section (Resolved) History of cholecystectomy (Resolved) H/O hernia repair (Resolved) Family History Grandmother Hx of CABG Mother Diabetes Father Crohn's disease Social History Preferred Language: Samoan Communication Ability: Effective 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 [employer]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 Beliefs That Will Affect Care: None marital status: Current Living Situation: Family Current Living Situation Comment: [facility] current occupational status: employed Feels Safe at Home: Yes Safety Concerns: Feels Safe At This Time Smoking Status: Current every day smoker Tobacco Type: cigarettes ; Cigarettes Per Day: 3 ; Do You Dip or Chew Tobacco: No ; Second Hand Exposure: No ; Tobacco Cessation Education Requested by Patient: No Hx Alcohol Use: Yes Alcohol Intake Frequency Comment: q3 months Hx Substance Use: No Results & Data Vital Signs Vital Signs - 24 hr 05/23/19 14:05 05/23/19 15:00 05/23/19 15:01 Temperature 37.2 C Temperature Source Oral Sepsis Recent Fever Within 48 Hours No Sepsis New/Unexplained Change in Mental Status No Sepsis Action Taken by Nursing No Action Required Pulse Rate 99 H 93 H Pulse Rate [Left Apical] Pulse Rate from SpO2 Sensor 93 H Pulse Rhythm Regular Regular Pulse Rhythm [Left Apical] Pulse Strength Normal Pulse Strength [Left Apical] Respiratory Rate 20 24 Respiratory Effort / Characteristics Non-Labored Spontaneous Respiratory Depth Normal Respiratory Pattern Regular Blood Pressure 181/109 H Blood Pressure [Right Arm] Blood Pressure Mean 133 Blood Pressure Mean [Right Arm] Blood Pressure Position Sitting Blood Pressure Position [Right Arm] Pulse Oximetry 99 98 Oxygen Delivery Method Room Air Room Air 05/23/19 15:15 05/23/19 15:30 05/23/19 15:45 Temperature Temperature Source Sepsis Recent Fever Within 48 Hours Sepsis New/Unexplained Change in Mental Status Sepsis Action Taken by Nursing Pulse Rate 93 H 94 H 93 H Pulse Rate [Left Apical] Pulse Rate from SpO2 Sensor 94 H 94 H 95 H Pulse Rhythm Pulse Rhythm [Left Apical] Pulse Strength Pulse Strength [Left Apical] Respiratory Rate 18 19 17 Respiratory Effort / Characteristics Respiratory Depth Respiratory Pattern Blood Pressure Blood Pressure [Right Arm] Blood Pressure Mean Blood Pressure Mean [Right Arm] Blood Pressure Position Blood Pressure Position [Right Arm] Pulse Oximetry 98 97 100 Oxygen Delivery Method 05/23/19 16:00 05/23/19 16:15 05/23/19 18:40 Temperature Temperature Source Sepsis Recent Fever Within 48 Hours Sepsis New/Unexplained Change in Mental Status Sepsis Action Taken by Nursing Pulse Rate 87 90 91 H Pulse Rate [Left Apical] 87 Pulse Rate from SpO2 Sensor 88 90 Pulse Rhythm Pulse Rhythm [Left Apical] Regular Pulse Strength Pulse Strength [Left Apical] Normal Respiratory Rate 20 23 9 L Respiratory Effort / Characteristics Non-Labored Spontaneous Respiratory Depth Normal Respiratory Pattern Regular Blood Pressure 192/104 H 196/128 H Blood Pressure [Right Arm] 192/104 H Blood Pressure Mean 133 150 Blood Pressure Mean [Right Arm] 133 Blood Pressure Position Blood Pressure Position [Right Arm] Sitting Pulse Oximetry 97 98 Oxygen Delivery Method Room Air 05/23/19 18:41 05/23/19 18:45 05/23/19 19:00 Temperature Temperature Source Sepsis Recent Fever Within 48 Hours Sepsis New/Unexplained Change in Mental Status Sepsis Action Taken by Nursing Pulse Rate 91 H 90 90 Pulse Rate [Left Apical] 91 H Pulse Rate from SpO2 Sensor 91 H 90 92 H Pulse Rhythm Pulse Rhythm [Left Apical] Regular Pulse Strength Pulse Strength [Left Apical] Normal Respiratory Rate 16 17 19 Respiratory Effort / Characteristics Non-Labored Spontaneous Respiratory Depth Normal Respiratory Pattern Regular Blood Pressure 204/132 H 208/130 H Blood Pressure [Right Arm] 204/132 H Blood Pressure Mean 156 156 Blood Pressure Mean [Right Arm] 156 Blood Pressure Position Blood Pressure Position [Right Arm] Sitting Pulse Oximetry 99 100 98 Oxygen Delivery Method Room Air 05/23/19 19:15 05/23/19 19:30 05/23/19 19:45 Temperature Temperature Source Sepsis Recent Fever Within 48 Hours Sepsis New/Unexplained Change in Mental Status Sepsis Action Taken by Nursing Pulse Rate 93 H 92 H 92 H Pulse Rate [Left Apical] Pulse Rate from SpO2 Sensor 93 H 93 H 92 H Pulse Rhythm Pulse Rhythm [Left Apical] Pulse Strength Pulse Strength [Left Apical] Respiratory Rate 27 H 16 16 Respiratory Effort / Characteristics Respiratory Depth Respiratory Pattern Blood Pressure 199/140 H Blood Pressure [Right Arm] Blood Pressure Mean 159 Blood Pressure Mean [Right Arm] Blood Pressure Position Blood Pressure Position [Right Arm] Pulse Oximetry 99 100 100 Oxygen Delivery Method 05/23/19 20:00 Temperature Temperature Source Sepsis Recent Fever Within 48 Hours Sepsis New/Unexplained Change in Mental Status Sepsis Action Taken by Nursing Pulse Rate 90 Pulse Rate [Left Apical] Pulse Rate from SpO2 Sensor 90 Pulse Rhythm Pulse Rhythm [Left Apical] Pulse Strength Pulse Strength [Left Apical] Respiratory Rate 17 Respiratory Effort / Characteristics Respiratory Depth Respiratory Pattern Blood Pressure 180/126 H Blood Pressure [Right Arm] Blood Pressure Mean 144 Blood Pressure Mean [Right Arm] Blood Pressure Position Blood Pressure Position [Right Arm] Pulse Oximetry 100 Oxygen Delivery Method Home Medications Current Medication List: was personally reviewed by me Laboratory Data Attestation: I reviewed the patient's lab results. Result diagrams: 05/23/19 15:35 05/23/19 15:35 Lab Results 05/23/19 05/23/19 05/23/19 Range/Units 15:35 15:35 15:35 WBC 9.71 (4.8-10.8) K/uL RBC 2.58 L (4.2-5.4) M/uL Hgb 8.4 L (12.0-16.0) g/dL Hct 25.4 L (37-47) % MCV 98.4 (80-100) fL MCH 32.6 (25-34) pg MCHC 33.1 (32-36) g/dL RDW Std Deviation 56.0 H (36.4-46.3) fL RDW Coeff of Laith 15.8 H (11.5-14.5) % Plt Count 137 (130-400) K/uL MPV 9.1 (7.4-10.4) fL Immature Gran % (Auto) 0.2 % Neut % (Auto) 86.6 % Lymph % (Auto) 7.0 % [place] % (Auto) 3.5 % Eos % (Auto) 2.5 % Baso % (Auto) 0.2 % Immature Gran # (Auto) 0.02 (0.00-0.02) K/uL Neut # (Auto) 8.41 H (1.4-6.5) K/uL Lymph # (Auto) 0.68 L (1.2-3.4) K/uL [place] # (Auto) 0.34 (0.11-0.59) K/uL Eos # (Auto) 0.24 (0-0.5) K/uL Baso # (Auto) 0.02 (0-0.2) K/uL Ovalocytes 1+ APTT (21.0-31.0) Seconds PTT Ratio D-Dimer 2610 H* (0-500) ug/L FEU Sodium 139 (136-145) mmol/L Potassium 4.9 (3.5-5.1) mmol/L Chloride 105 (98-107) mmol/L Carbon Dioxide 22 (21-32) mmol/L Anion Gap 11.0 (3-11) BUN 82 H (7-18) mg/dl Creatinine 15.30 H* (0.6-1.2) mg/dl Est Cr Clr Drug Dosing 6.4 ml/min Est GFR ( Amer) 3.2 Est GFR (Non-Af Amer) 2.7 BUN/Creatinine Ratio 5.4 L (10-20) Glucose 90 (70-99) mg/dl Calcium 8.0 L (8.5-10.1) mg/dl Total Bilirubin 0.3 (0.2-1) mg/dl AST 21 (15-37) U/L ALT 19 (12-78) U/L Alkaline Phosphatase 141 H (45-117) U/L Troponin I 0.229 H* (0-0.045) ng/ml Total Protein 6.5 (6.4-8.2) gm/dl Albumin 2.6 L (3.4-5.0) gm/dl Globulin 3.9 (2.5-4.0) gm/dl Albumin/Globulin Ratio 0.7 L (0.9-2) Lipase 143 (73-393) U/L HCG, Qual (Negative) 05/23/19 05/23/19 Range/Units 15:35 15:35 WBC (4.8-10.8) K/uL RBC (4.2-5.4) M/uL Hgb (12.0-16.0) g/dL Hct (37-47) % MCV (80-100) fL MCH (25-34) pg MCHC (32-36) g/dL RDW Std Deviation (36.4-46.3) fL RDW Coeff of Laith (11.5-14.5) % Plt Count (130-400) K/uL MPV (7.4-10.4) fL Immature Gran % (Auto) % Neut % (Auto) % Lymph % (Auto) % [place] % (Auto) % Eos % (Auto) % Baso % (Auto) % Immature Gran # (Auto) (0.00-0.02) K/uL Neut # (Auto) (1.4-6.5) K/uL Lymph # (Auto) (1.2-3.4) K/uL [place] # (Auto) (0.11-0.59) K/uL Eos # (Auto) (0-0.5) K/uL Baso # (Auto) (0-0.2) K/uL Ovalocytes APTT 26.2 (21.0-31.0) Seconds PTT Ratio 1.0 D-Dimer (0-500) ug/L FEU Sodium (136-145) mmol/L Potassium (3.5-5.1) mmol/L Chloride (98-107) mmol/L Carbon Dioxide (21-32) mmol/L Anion Gap (3-11) BUN (7-18) mg/dl Creatinine (0.6-1.2) mg/dl Est Cr Clr Drug Dosing ml/min Est GFR ( Amer) Est GFR (Non-Af Amer) BUN/Creatinine Ratio (10-20) Glucose (70-99) mg/dl Calcium (8.5-10.1) mg/dl Total Bilirubin (0.2-1) mg/dl AST (15-37) U/L ALT (12-78) U/L Alkaline Phosphatase (45-117) U/L Troponin I (0-0.045) ng/ml Total Protein (6.4-8.2) gm/dl Albumin (3.4-5.0) gm/dl Globulin (2.5-4.0) gm/dl Albumin/Globulin Ratio (0.9-2) Lipase (73-393) U/L HCG, Qual Negative (Negative) Administered Medications Calcium Acetate (Phoslo) 3,335 mg PO TIDM NIKKI Stop: 06/23/19 07:59 Last Admin: 05/23/19 22:51 Dose: 3,335 mg Documented by: [id number] Gabapentin (Neurontin) 800 mg PO HS NIKKI Stop: 06/22/19 21:32 Last Admin: 05/23/19 22:49 Dose: 800 mg Documented by: [id number] Heparin Sodium (Porcine) (Heparin Sodium (Porcine)) 5,000 units SQ Q8 NIKKI Stop: 06/22/19 21:59 Last Admin: 05/23/19 22:52 Dose: Not Given Documented by: [id number] Insulin Aspart (Novolog Flexpen) 0 units SC ACHS NIKKI Stop: 06/22/19 21:32 Last Admin: 05/23/19 22:33 Dose: Not Given Documented by: [id number] Cosigned by: [id number] Mirtazapine (Remeron) 30 mg PO HS [facility] Stop: 06/22/19 21:32 Last Admin: 05/23/19 22:49 Dose: 30 mg Documented by: [id number] Discontinued Medications Carvedilol (Coreg) 25 mg PO NOW ONE Stop: 05/23/19 19:42 Last Admin: 05/23/19 20:00 Dose: 25 mg Documented by: [id number] Enalapril Maleate (Vasotec) 5 mg PO NOW STA Stop: 05/23/19 19:42 Last Admin: 05/23/19 20:00 Dose: 5 mg Documented by: [id number] Furosemide 80 mg/ Syringe 8 mls @ 4 mls/min IV ONE ONE Stop: 05/23/19 19:42 Last Admin: 05/23/19 20:14 Dose: 4 mls/min Documented by: [id number] Ioversol (Optiray 320 125ml) 89 ml IV ONCE PRN PRN Reason: Interaction Checking Stop: 05/27/19 18:02 Last Admin: 05/23/19 18:04 Dose: 89 ml Documented by: [id number] Morphine Sulfate (Morphine Sulfate) 4 mg IV NOW STA Stop: 05/23/19 14:46 Last Admin: 05/23/19 15:56 Dose: 4 mg Documented by: [id number] Morphine Sulfate (Morphine Sulfate) 2 mg IV NOW STA Stop: 05/23/19 17:41 Last Admin: 05/23/19 18:43 Dose: 2 mg Documented by: [id number] Nitroglycerin (Nitrostat) 0.4 mg SL NOW STA Stop: 05/23/19 20:17 Last Admin: 05/23/19 21:24 Dose: 0.4 mg Documented by: [id number] Tramadol HCl (Ultram) Confirm Administered Dose 50 mg .ROUTE .STK-MED ONE Stop: 05/23/19 21:20 Last Admin: 05/23/19 21:23 Dose: 25 mg Documented by: [id number] Imaging Data Radiologist's Impression: Radiology results as stated below per my review and the radiologist's interpretation: XR chest 2V routine CLINICAL HISTORY: Chest pain. COMPARISON STUDY: Chest radiograph May 05, 2019. FINDINGS: Moderate cardiomegaly is noted. This is unchanged. There is no pneumothorax or pleural effusion. Interstitial thickening and bilateral opacities are noted. Airspace opacities have progressed since exam May 05, 2019. There are cholecystectomy clips. IMPRESSION: 1. Progression of interstitial thickening and bilateral opacities. The findings may reflect pulmonary edema or an infectious process. Radiographic follow-up is recommended. 2. Moderate cardiomegaly. Electronically signed by: Sebastian Mcclain M.D. 05/23/2019 4:48 PM XR lumbar spine min 4V routine CLINICAL HISTORY: Fall. COMPARISON STUDY: Head CT February 15, 2017. FINDINGS: Alignment of the lumbar spine is anatomic. There is no acute fracture. Disc spaces are preserved. Vertebral body heights are maintained. A peripherally calcified density within the right lower quadrant represents an old allograft. Peritoneal dialysis catheter is partially imaged. There are cholecystectomy clips. Bowel gas pattern is normal. IMPRESSION: No acute lumbar spine fracture or subluxation. Electronically signed by: Sebastian Mcclain M.D. 05/23/2019 4:50 PM BILATERAL LOWER EXTREMITY VENOUS DOPPLER CLINICAL HISTORY: Shortness of breath. COMPARISON STUDY: Bilateral lower extremity venous Doppler ultrasound August 11, 2017. TECHNIQUE: Sonography of the deep venous system of the bilateral lower extremities was performed. Compression and augmentation were evaluated. FINDINGS: The bilateral common femoral, superficial femoral and popliteal veins were compressible. Augmentation was normal. Flow was shown within the deep calf vessels. IMPRESSION: No evidence of deep venous thrombus within the bilateral lower extremities. Electronically signed by: Sebastian Mcclain M.D. 05/23/2019 5:[address] ANGIOGRAPHY OF THE CHEST, PULMONARY EMBOLUS PROTOCOL CLINICAL HISTORY: PE- +dimer. On dialysis. COMPARISON STUDY: Chest CT May 06, 2017. Chest radiograph performed earlier today. TECHNIQUE: Following IV administration of 89 mL of Optiray-320, helical axial images of the chest were obtained utilizing the pulmonary embolus protocol. Maximal intensity projections and sagittal and coronal reformats were viewed on an independent 3D workstation. IV contrast was administered without complication. Automated exposure control was utilized for the study. A dose lowering technique was utilized adhering to the principles of ALARA. CT DOSE: 682.04 mGy.cm FINDINGS: No pulmonary emboli are identified although the segmental and subsegmental pulmonary arteries are suboptimally assessed due to respiratory motion. The heart is moderately enlarged. There is moderate coronary artery calcification. No thoracic aortic dissection is present. Central airways are patent. Interlobular septal thickening is noted. Extensive bilateral airspace opacities within the lungs are also noted. There are trace bilateral pleural effusions. No pneumothorax is present. Bony thorax is unremarkable. Small amount of perihepatic ascites is noted IMPRESSION: 1. No pulmonary emboli identified although segmental and subsegmental pulmonary arteries suboptimally assessed due to respiratory motion. 2. Interstitial pulmonary edema. In addition, extensive bilateral airspace opacities which favor alveolar edema however bilateral pneumonia could appear similar. 3. Trace bilateral pleural effusions. 4. Moderate cardiomegaly and coronary artery calcification. 5. Small amount of perihepatic ascites. Electronically signed by: Sebastian Mcclain M.D. 05/23/2019 6:24 PM ECG Data Attestation: I personally reviewed and interpreted this ECG as follows: Indication: chest pain and SOB/dyspnea Rate (beats per minute): 99 Rhythm: sinus rhythm Findings: + other (poor R wave progression, normal QRS) and + PVC; no ST depression, no ST elevation and no acute ischemic change Blood Pressure Blood Pressure Findings: Elevated blood pressure Blood Pressure Disposition: further management by hospitalist Discharge Plan Visit Data *Final* Discharge Date/Time: 05/23/19 21:30 Chief Complaint: Cardiac Assessment Stated Complaint: SOB, CHEST PAIN X1 DAY, HX PROLONG QT ED Provider: Theo Irizarry Discharge Problem: Shortness of breath, Pulmonary edema, ESRD (end stage renal disease), Substerna l chest pain Patient Disposition: Admitted As Inpatient Discharge Instructions Interventions: ED Discharge Assessment Last Done: 05/23/19 21:30 Discharge Problem: Pulmonary edema Qualifiers: Chronicity: acute Qualified Code(s): J81.0 - Acute pulmonary edema The scribe's documentation has been prepared under my direction and personally reviewed by me in its entirety. I confirm that the note above accurately reflects all work, treatment, procedures, and medical decision making performed by me.
[2019-05-23] MEDS ORDERED: HydrALAZINE HCL 20 MG/ML VIAL IV STA (23:09)
[2019-05-24] MEDS: carvediloL 25 MG TAB PO SCH ×2 (04:58→21:01)
[2019-05-24] MEDS: HEPARIN SOD 5,000 UNIT/0.5 ML VIAL SQ SCH ×3 (05:45→21:01)
[2019-05-24 07:00] LABS: Basophils # (auto) 0.01 K/uL (0-0.2); Basophils % (auto) 0.1 %; Eosinophils # (auto) 0.19 K/uL (0-0.5); Eosinophils % (auto) 2.1 %; Hematocrit (blood only) 23.2 % (37-47); Hemoglobin 7.5 g/dL (12.0-16.0); Immature Granulocytes # (auto) 0.03 K/uL (0.00-0.02); Immature Granulocytes % (auto) 0.3 %; Lymphocytes # (auto) 0.46 K/uL (1.2-3.4); Lymphocytes % (auto) 5.1 %; Mean Corpuscular Hemoglobin 32.3 pg (25-34); Mean Corpuscular Hgb Conc 32.3 g/dL (32-36); Mean Platelet Volume 8.8 fL (7.4-10.4); Monocytes # (auto) 0.26 K/uL (0.11-0.59); Monocytes % (auto) 2.9 %; Neutrophils # (auto) 8.13 K/uL (1.4-6.5); Neutrophils % (auto) 89.5 %; Nucleated RBC # (auto) 0.02 K/uL (0-0); Nucleated RBC % (auto) 0.2 %; Platelet Count 118 K/uL (130-400); RDW Standard Deviation 57.4 fL (36.4-46.3); Red Blood Count 2.32 M/uL (4.2-5.4); White Blood Count 9.08 K/uL (4.8-10.8)
[2019-05-24 07:29] LABS: RBC Morphology Unremarkable
[2019-05-24 07:48] LABS: BUN Creatinine Ratio 5.2 (10-20); Creatinine Clr Calc Pharmacy 6.2 ml/min; Est GFR (Non-African American) 2.6; Potassium 5.8 mmol/L (3.5-5.1)
[2019-05-24] MEDS: INSULIN ASPART 100 UNITS/ML 3 ML PEN SC SCH ×4 (08:30→21:06)
[2019-05-24] MEDS: SERTRALINE HCL 50 MG TABLET PO SCH (08:59)
[2019-05-24] MEDS ORDERED: carvediloL 12.5 MG TAB PO SCH (09:00)
[2019-05-24] MEDS: AMLODIPINE BESYLATE 5 MG TAB PO SCH (09:00)
[2019-05-24] MEDS: CALCIUM ACETATE 667 MG CAP PO SCH ×3 (09:01→16:57)
[2019-05-24] MEDS: ENALAPRIL MALEATE 5 MG TAB PO SCH ×2 (09:02→20:57)
[2019-05-24] MEDS: SEVELAMER HCL 800 MG TABLET PO SCH ×3 (09:02→16:57)
[2019-05-24] MEDS: GABAPENTIN 400 MG CAP PO SCH ×2 (09:03→12:16)
[2019-05-24] MEDS: FAMOTIDINE 20 MG TAB PO SCH (09:04)
--- NOTE | 2019-05-24 10:35 | Hospitalist Progress Note ---
Date of Service May 24, 2019 Assessment & Plan (1) Shortness of breath: Mostly related to pulmonary edema due to ESRD on PD vs Anemia Last PD was on CXR showed progression of interstitial thickening and bilateral opacities CTA chest showed interstitial pulmonary edema. No pulmonary emboli identified Nephrology on board Plan to change from PD to HD Clinically stable currently Will monitor closely If needed urgent HD, will transfer to another facility to get HD CKD (chronic kidney disease) stage V requiring chronic dialysis Last PD was on Nephrology on board Pt will need HD done, but no dialysis done on Saturday Since pt is stable plan for HD tomorrow Continue phoslo, sevelamer, sensipar Symptomatic anemia Anemia due to end stage renal disease Hgb 8.4 on admission dropped to 7.5 today Continue monitor H/H Elevated troponin Chronic elevated troponin Trop on admission 0.2 EKG showed no ischemic changes Recently admitted 04/21- 04/25 with chest pain and underwent echocardiogram. She was also seen and evaluated by cardiology who recommended stress echo but unable to perform due to uncontrolled hypertension Stable HTN (hypertension) BP elevated Continue amlodipine 10mg and coreg increased to 25mg Continue Enalapril 5mg BID Monitor BP Prolonged QT interval: QTC 503 today Will monitor closely while on Zoloft Avoid QTC prolonging drugs Back pain Xray Lumbar showed no acute lumbar spine fracture or subluxation. Continue Tramadol prn Stable Abdominal pain CT abd showed moderate peritoneal fluid within the pelvis and small amount of peritoneal fluid within the abdomen. This represents peritoneal dialysate. Mild increased attenuation of this fluid is nonspecific but may be related to recent contrast-enhanced CT. Tolerated diet continue Tramadol Depression On zoloft, mirtazapine monitor QTC Stable DVT prophylaxis: No heparin subq due to low hemoglobin On SCD DVT px FULL CODE Subjective Pt was seen and examined Sitting in bed with no distress writing her music playlist She said that she does have sob with exertion Pt said that she fell on Saturday and hit her back She is having back pain She said that her last PD was on Currently denies any chest pain, palpitation, dizziness, SOB and fever Physical Exam Physical Exam: General- No acute distress Head- atraumatic Eyes- PERRL, EOMI, ENT- oropharynx clear Neck- supple, no JVD Lungs- clear to auscultation Heart- regular rhythm; no murmur Abdomen- normal bowel sounds Extremities- no calf tenderness, +trace edema Neuro- alert, oriented x 3; PERRL, EOMI; no facial palsy; no dysarthria Skin- warm & dry Results & Data Vital Signs (Past 12 Hours) Vital Signs Temp Pulse Pulse Resp BP Pulse Ox 05/24/19 08:00 80 05/24/19 07:00 36.3 C L 78 22 159/87 H 94 05/24/19 03:10 36.7 C 82 20 170/118 H 92 05/23/19 22:54 36.3 C L 91 H 16 180/124 H 95
[2019-05-24] MEDS: TRAMADOL HCL 50 MG TABLET PO PRN ×2 (12:15→18:33)
[2019-05-24] MEDS: MIRTAZAPINE TAB 15 MG TAB PO SCH (21:00)
[2019-05-24] MEDS: GABAPENTIN 800 MG TAB PO SCH (21:01)
[2019-05-25] MEDS: HEPARIN SOD 5,000 UNIT/0.5 ML VIAL SQ SCH ×3 (05:53→21:27)
[2019-05-25 06:02] LABS: Estimated Average Glucose 100 mg/dl; Hemoglobin A1C 5.1 % (4.5-5.6)
[2019-05-25] MEDS ORDERED: SODIUM CHLORIDE 0.9% 1000ML 1,000 ML IV PRN (08:07)
[2019-05-25] MEDS: INSULIN ASPART 100 UNITS/ML 3 ML PEN SC SCH ×4 (08:45→21:13)
[2019-05-25] MEDS ORDERED: EPOETIN ALFA 10,000 UNITS/ML VIAL IV SCH (09:00)
[2019-05-25] MEDS ORDERED: HEPARIN SOD (PORCINE) 1000 UNIT/ML 10 ML VIAL IV SCH (09:00)
[2019-05-25 09:45] LABS: Hepatitis B Surface Ab Quant 526.94 mIU/mL (>or=10mIU/mL Immune); Hepatitis B Surface Antibody Immune
[2019-05-25 09:56] LABS: Hepatitis B Surface Antigen Neg (Neg)
--- NOTE | 2019-05-25 09:59 | Nephrology Consultation ---
Date of Consultation May 25, 2019 Assessment & Plan (1) ESRD (end stage renal disease): Patient with ESRD on PD admitted with exertional shortness of breath found to have pulmonary edema on chest x-ray. She is up 5 kg from her baseline weight. There is likely a component of noncompliance with her PD. Patient is supposed to use 2.5% dextrose but apparently has been using 1.5% to create spacing storeroom. She has a functional AV fistula. Given volume overload we will do hemodialysis today for 4 hours, blood flow 400, dialysate flow 800 and target UF of 3.5 L. Patient can be discharged to feeling well after dialysis. She will likely continue hemodialysis at the outpatient unit. I will let outpatient master control technician know. (2) Anemia due to end stage renal disease: Hemoglobin of 7.5 today which is below target. We will give her Epogen 10,000 units with dialysis. No need for transfusion (3) HTN (hypertension): Blood pressure is above target. Continue home medications including Coreg, amlodipine and enalapril. Anticipate improvement with ultrafiltration today History of Present Illness Reason for Consultation: ESRD on dialysis Requesting Physician: Ambreen Lutz MD Attending Physician: Ambreen Lutz MD History of Present Illness This is a 33-year-old female with ESRD on PD who was admitted on 05/23/2019 with shortness of breath. She last did PD on . She missed her outpatient visit with Dr. Esteban to discuss plans of transitioning her to in center hemodialysis. PMH includes CAD s/p stent, HTN, GERD, migraines, ESRD s/p failed living related kidney txplt from nonadherence to medical recommendations, hemoperitoneum for which she uses maintenance heparin once weekly w/ PD. Her OP rx is 10 hrs on cycler w/ 5 x 2.5% dextrose 2.5L exchanges and MDE. Patient has been using 1.5% dextrose because she wanted to create space in her storage room and thinks she has not been taking enough fluid off. Today she is complaining of exertional dyspnea. Her legs are mildly swollen. She has an umbilical hernia. She does not make much urine. Her blood pressure has been on the high side in the 160s to 180s. She has a functional AV fistula which has been used intermittently for optimization of volume status. She was apparently planned to start in center hemodialysis today outpatient. She also fell on Saturday while opening the door for the boyfriend. She has back pain since the fall. I initially saw the patient in her room in consultation. I later returned to the dialysis room. Patient was seen and examined while on dialysis. Allergies Allergy/AdvReac Type Severity Reaction Status Date / Time cefaclor Allergy Intermediate Rash Verified 05/23/19 15:41 amoxicillin AdvReac Mild VOMITING Verified 05/23/19 15:41 clavulanic acid AdvReac Mild VOMITING Verified 05/23/19 15:41 Home Medications Home Medications Medication Instructions Recorded Confirmed Type albuterol sulfate [Ventolin HFA] 2 puff INHALATION QID PRN 05/30/18 05/23/19 History calcium acetate 2,668 mg PO DIRECTED 05/30/18 05/23/19 History calcium acetate 3,335 mg PO TIDM 05/30/18 05/23/19 History sertraline [Zoloft] 50 mg PO QAM 05/30/18 05/23/19 History sumatriptan succinate [Imitrex] 50 mg PO DIRECTED PRN MDD 100 05/30/18 05/23/19 History MG/24 HOURS loratadine 10 mg PO HS PRN 07/30/18 05/23/19 History mirtazapine 30 mg PO HS 10/08/18 05/23/19 History amlodipine [Norvasc] 10 mg PO DAILY 11/03/18 05/23/19 History cinacalcet [Sensipar] 30 mg PO QPM 11/03/18 05/23/19 History gabapentin [Neurontin] 800 mg PO HS 11/26/18 05/23/19 History calcium acetate 1,334 mg PO DIRECTED 01/24/19 05/23/19 History gabapentin 400 mg PO DIRECTED 01/24/19 05/23/19 History famotidine [Pepcid] 40 mg PO DAILY 04/21/19 05/23/19 History sevelamer carbonate 1,600 mg PO TIDM 04/21/19 05/23/19 History potassium chloride 20 meq PO DAILY #30 tab 04/25/19 05/23/19 Rx carvedilol 12.5 mg PO BID 05/05/19 05/23/19 History enalapril maleate 5 mg PO BID 30 Days #60 tab 05/08/19 05/23/19 Rx acetaminophen [Tylenol Extra 1,000 mg PO Q6H PRN 05/23/19 05/23/19 History Strength] Patient History Medical History Fistula of artery (Chronic) Diastolic CHF (Chronic) "echo 04/18/17 - EF 60-65%, grade II diastolic dysfunction" FSGS (focal segmental glomerulosclerosis) (Chronic) DM2 (diabetes mellitus, type 2) (Chronic) HTN (hypertension) (Chronic) CKD (chronic kidney disease) stage V requiring chronic dialysis (Chronic) Peritoneal dialysis catheter in place (Chronic) Dependence on peritoneal dialysis (Acute) Depression (Chronic) Surgical History H/O knee surgery (Resolved) H/O: (Resolved) H/O tubal ligation (Resolved) H/O eye surgery (Resolved) H/O section (Resolved) History of cholecystectomy (Resolved) H/O hernia repair (Resolved) Family History Grandmother Hx of CABG Mother Diabetes Father Crohn's disease Social History Preferred Language: [place]i Communication Ability: Effective Camera Mechanic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 Beliefs That Will Affect Care: None marital status: Current Living Situation: Family Current Living Situation Comment: [facility] current occupational status: employed Feels Safe at Home: Yes Safety Concerns: Feels Safe At This Time Smoking Status: Current every day smoker Tobacco Type: cigarettes ; Cigarettes Per Day: 3 ; Do You Dip or Chew Tobacco: No ; Second Hand Exposure: No ; Tobacco Cessation Education Requested by Patient: No Hx Alcohol Use: Yes Alcohol Intake Frequency Comment: q3 months Hx Substance Use: No Review of Systems Review of Systems: All systems reviewed & are unremarkable except as noted in HPI & below Physical Exam Physical Exam: General exam: Appears comfortable, no acute distress HEENT: Pupils are equal and reactive to light Neck: No JVD, neck is supple trachea is midline Respiratory system: Clear breath sounds bilaterally. Gastrointestinal: Abdomen is soft, non distended, non tender, bowel sounds are present. PD catheter present. CVS: Regular rate and rhythm. No murmurs, rubs or gallops Musculoskeletal: No joint or muscle tenderness Extremities: Non tender, no edema, peripheral pulses are present Neuro: Oriented, no tremors, no focal neurological deficits Skin: No rashes Access: Left upper arm AV fistula with good bruit Results & Data Vital Signs (Past 12 Hours) Vital Signs Temp Pulse Pulse Resp BP Pulse Ox 05/25/19 07:38 36.8 C 74 16 168/97 H 91 05/25/19 04:24 36.4 C L 71 16 163/101 H 92 05/25/19 00:11 36.6 C 77 17 176/101 H 93 Laboratory Results Laboratory Results - last 24 hr 05/23/19 05/23/19 05/23/19 15:35 15:35 20:45 APTT 26.2 PTT Ratio 1.0 POC Glucose Estimat Average Glucose 100 Hemoglobin A1c 5.1 Magnesium 2.2 Troponin I 0.223 H* Hep Bs Antigen Hep Bs Antibody Hep Bs Antibody, Quant 05/24/19 05/24/19 05/24/19 11:25 16:32 21:04 APTT PTT Ratio POC Glucose 109 H 91 105 H Estimat Average Glucose Hemoglobin A1c Magnesium Troponin I Hep Bs Antigen Hep Bs Antibody Hep Bs Antibody, Quant 05/25/19 05/25/19 07:20 08:38 APTT PTT Ratio POC Glucose 110 H Estimat Average Glucose Hemoglobin A1c Magnesium Troponin I Hep Bs Antigen Pending Hep Bs Antibody Immune Hep Bs Antibody, Quant 526.94 (1) HTN (hypertension) Hypertension type: essential hypertension Qualified Code(s): I10 - Essential (primary) hypertension
[2019-05-25 10:47] LABS: BUN Creatinine Ratio 5.2 (10-20); Calcium 8.2 mg/dl (8.5-10.1); Creatinine Clr Calc Pharmacy 5.7 ml/min; Est GFR (African American) 2.7; Est GFR (Non-African American) 2.4
[2019-05-25] MEDS: CALCIUM ACETATE 667 MG CAP PO SCH ×3 (12:02→17:41)
[2019-05-25] MEDS: SEVELAMER HCL 800 MG TABLET PO SCH ×3 (12:02→17:42)
[2019-05-25] MEDS: GABAPENTIN 400 MG CAP PO SCH ×2 (12:03→14:22)
[2019-05-25] MEDS: HEPARIN SOD (PORCINE) 1000 UNIT/ML 10 ML VIAL IV SCH ×2 (12:04→12:05)
[2019-05-25] MEDS: carvediloL 25 MG TAB PO SCH ×2 (14:21→20:33)
[2019-05-25] MEDS: FAMOTIDINE 20 MG TAB PO SCH (14:21)
[2019-05-25] MEDS: SERTRALINE HCL 50 MG TABLET PO SCH (14:21)
[2019-05-25] MEDS: AMLODIPINE BESYLATE 5 MG TAB PO SCH (14:22)
[2019-05-25] MEDS: ENALAPRIL MALEATE 5 MG TAB PO SCH ×2 (14:24→20:34)
[2019-05-25 16:01] LABS: Hematocrit (blood only) 23.3 % (37-47); Hemoglobin 7.6 g/dL (12.0-16.0); Mean Corpuscular Hemoglobin 31.3 pg (25-34); Mean Corpuscular Hgb Conc 32.6 g/dL (32-36); Mean Corpuscular Volume 95.9 fL (80-100); Mean Platelet Volume 9.3 fL (7.4-10.4); Platelet Count 130 K/uL (130-400); RDW Coefficient of Variation 15.7 % (11.5-14.5); RDW Standard Deviation 54.5 fL (36.4-46.3); Red Blood Count 2.43 M/uL (4.2-5.4)
[2019-05-25] MEDS ORDERED: HydrALAZINE HCL 20 MG/ML VIAL IV PRN (17:57)
--- NOTE | 2019-05-25 18:17 | Hospitalist Progress Note ---
Date of Service May 25, 2019 Assessment & Plan (1) Shortness of breath: Mostly related to pulmonary edema due to ESRD on PD vs Anemia CXR showed progression of interstitial thickening and bilateral opacities CTA chest showed interstitial pulmonary edema. No pulmonary emboli identified Nephrology on board Had HD done today Feeling very drowsy after completing HD Continue hemodialysis at the outpatient unit on Saturday CKD (chronic kidney disease) stage V requiring chronic dialysis Last PD was on Nephrology on board Had HD done today Continue phoslo, sevelamer, sensipar Next HD on Saturday Symptomatic anemia Anemia due to end stage renal disease Hgb 8.4 on admission dropped to 7.6 today Received Epogen [id number] unit during HD Will hold on PRBC transfusion as per nephro Continue monitor CBC Elevated troponin Chronic elevated troponin Trop on admission 0.2 EKG showed no ischemic changes Recently admitted 04/21- 04/25 with chest pain and underwent echocardiogram. She was also seen and evaluated by cardiology who recommended stress echo but unable to perform due to uncontrolled hypertension Stable HTN (hypertension) BP very high Continue amlodipine 10mg and coreg increased to 25mg Continue Enalapril 5mg BID Hydralazine IV PNR adding Monitor BP closely Prolonged QT interval: QTC 503 today Will monitor closely while on Zoloft Avoid QTC prolonging drugs Back pain Xray Lumbar showed no acute lumbar spine fracture or subluxation. Continue Tramadol prn Stable Abdominal pain CT abd showed moderate peritoneal fluid within the pelvis and small amount of peritoneal fluid within the abdomen. This represents peritoneal dialysate. Mild increased attenuation of this fluid is nonspecific but may be related to recent contrast-enhanced CT. Tolerated diet continue Tramadol Depression On zoloft, mirtazapine monitor QTC Stable DVT prophylaxis: No heparin subq due to low hemoglobin On SCD DVT px FULL CODE Disposition Will keep in telemetry for tonight due to Elevate BP Will discharge home tomorrow Subjective Pt was seen and examined Lying in bed feeling very drowsy She said that after HD, she always feels drowsy She said that that is the reason she does not like HD She cannot keep her eyes open Her BP has been running high Denies any chest pain, palpitation, dizziness and SOB Physical Exam Physical Exam: General- No acute distress Head- atraumatic Eyes- PERRL, EOMI, ENT- oropharynx clear Neck- supple, no JVD Lungs- clear to auscultation Heart- regular rhythm; no murmur Abdomen- normal bowel sounds Extremities- no calf tenderness, +trace edema Neuro- alert, oriented x 3; PERRL, EOMI; no facial palsy; no dysarthria Skin- warm & dry Results & Data Vital Signs (Past 12 Hours) Vital Signs Temp Pulse Pulse Pulse Resp BP BP 05/25/19 15:52 36.6 C 81 20 170/101 H 05/25/19 14:15 36.9 C 84 180/107 H 05/25/19 14:00 90 170/105 H 05/25/19 13:40 102 H 164/107 H 05/25/19 13:20 74 171/142 H 05/25/19 13:00 83 185/115 H 05/25/19 12:40 82 186/118 H 05/25/19 12:20 92 H 173/122 H 05/25/19 12:00 80 189/109 H 05/25/19 11:40 80 171/108 H 05/25/19 11:20 80 190/75 H 05/25/19 11:00 83 191/86 H 05/25/19 10:40 76 156/97 H 05/25/19 10:20 72 161/99 H 05/25/19 09:58 36.6 C 77 05/25/19 07:45 80 05/25/19 07:38 36.8 C 74 16 168/97 H Pulse Ox 05/25/19 15:52 92 05/25/19 14:15 05/25/19 14:00 05/25/19 13:40 05/25/19 13:20 05/25/19 13:00 05/25/19 12:40 05/25/19 12:20 05/25/19 12:00 05/25/19 11:40 05/25/19 11:20 05/25/19 11:00 05/25/19 10:40 05/25/19 10:20 05/25/19 09:58 05/25/19 07:45 05/25/19 07:38 91
[2019-05-25] MEDS: GABAPENTIN 800 MG TAB PO SCH (20:32)
[2019-05-25] MEDS: MIRTAZAPINE TAB 15 MG TAB PO SCH (20:33)
[2019-05-25] MEDS: TRAMADOL HCL 50 MG TABLET PO PRN (21:59)
[2019-05-26] MEDS: HEPARIN SOD 5,000 UNIT/0.5 ML VIAL SQ SCH ×2 (05:37→17:07)
[2019-05-26] MEDS: AMLODIPINE BESYLATE 5 MG TAB PO SCH (07:50)
[2019-05-26] MEDS: GABAPENTIN 400 MG CAP PO SCH ×2 (07:50→12:29)
[2019-05-26] MEDS: carvediloL 25 MG TAB PO SCH (07:51)
[2019-05-26] MEDS: CALCIUM ACETATE 667 MG CAP PO SCH ×3 (07:51→17:03)
[2019-05-26] MEDS: SEVELAMER HCL 800 MG TABLET PO SCH ×3 (07:51→17:02)
[2019-05-26] MEDS: SERTRALINE HCL 50 MG TABLET PO SCH (07:51)
[2019-05-26] MEDS: FAMOTIDINE 20 MG TAB PO SCH (07:52)
[2019-05-26] MEDS: INSULIN ASPART 100 UNITS/ML 3 ML PEN SC SCH ×3 (07:54→17:04)
[2019-05-26 08:37] LABS: Hemoglobin 7.5 g/dL (12.0-16.0); Mean Corpuscular Hemoglobin 31.8 pg (25-34); Mean Corpuscular Hgb Conc 32.6 g/dL (32-36); Mean Corpuscular Volume 97.5 fL (80-100); Mean Platelet Volume 9.2 fL (7.4-10.4); Platelet Count 117 K/uL (130-400); RDW Coefficient of Variation 15.3 % (11.5-14.5); RDW Standard Deviation 53.9 fL (36.4-46.3); Red Blood Count 2.36 M/uL (4.2-5.4); White Blood Count 5.67 K/uL (4.8-10.8)
[2019-05-26] MEDS ORDERED: SODIUM CHLORIDE 0.9% 1000ML 1,000 ML IV PRN (08:45)
[2019-05-26] MEDS ORDERED: HEPARIN SOD (PORCINE) 1000 UNIT/ML 10 ML VIAL IV SCH ×2 (08:45→09:00)
[2019-05-26 08:50] LABS: BUN Creatinine Ratio 4.1 (10-20); Calcium 8.4 mg/dl (8.5-10.1); Creatinine Clr Calc Pharmacy 9.9 ml/min; Est GFR (African American) 5.3; Est GFR (Non-African American) 4.6; Potassium 4.1 mmol/L (3.5-5.1)
--- NOTE | 2019-05-26 10:05 | Nephrology Progress Note ---
Date of Service May 26, 2019 Assessment & Plan (1) ESRD (end stage renal disease): Patient with ESRD on PD admitted with exertional shortness of breath found to have pulmonary edema on chest x-ray. There is likely a component of noncompliance with her PD. Patient is supposed to use 2.5% dextrose but apparently has been using 1.5% to create spacing store room. She has a functional AV fistula. She had HD yesterday for net UF 3.5 litres. Will do HD today for 3hrs and UF of 3 litres. next HD tomorrow outpt. (2) Anemia due to end stage renal disease: Hemoglobin of 7.5 today which is below target. She got Epogen 10,000 units with dialysis yesterday. No need for transfusion (3) HTN (hypertension): Blood pressure is above target. Continue home medications including Coreg, amlodipine and enalapril. Anticipate improvement with ultrafiltration today Subjective Patient had HD yesterday. She slept through it. Still has exertional SOB with ambulating in the room. No leg swelling. BP is high Review of Systems Review of Systems: All systems reviewed & are unremarkable except as noted in HPI & below Physical Exam Physical Exam: General exam: Appears comfortable, no acute distress HEENT: Pupils are equal and reactive to light Neck: No JVD, neck is supple trachea is midline Respiratory system: Clear breath sounds bilaterally. Gastrointestinal: Abdomen is soft, non distended, non tender, bowel sounds are present CVS: Regular rate and rhythm. No murmurs, rubs or gallops Musculoskeletal: No joint or muscle tenderness Extremities: Non tender, no edema, peripheral pulses are present Neuro: Oriented, no tremors, no focal neurological deficits Skin: No rashes Access: AVF with good bruit Results & Data Vital Signs (Past 12 Hours) Vital Signs Temp Pulse Pulse Pulse Resp BP Pulse Ox 05/26/19 07:09 36.9 C 74 18 182/104 H 95 05/26/19 04:56 37.3 C 77 18 158/88 H 95 05/26/19 01:03 79 05/26/19 00:00 05/25/19 23:09 37.3 C 79 20 168/95 H 93 05/25/19 22:01 76 162/78 H 95 Pulse Ox 05/26/19 07:09 05/26/19 04:56 05/26/19 01:03 05/26/19 00:00 95 05/25/19 23:09 05/25/19 22:01 Laboratory Results Laboratory Results - last 24 hr 05/25/19 05/25/19 05/25/19 08:39 08:39 14:26 WBC RBC Hgb Hct MCV MCH MCHC RDW Std Deviation RDW Coeff of Laith Plt Count MPV Sodium 134 L Potassium 6.0 H Chloride 102 Carbon Dioxide 19 L Anion Gap 13.0 H BUN 89 H Creatinine 17.20 H* D Est Cr Clr Drug Dosing 5.7 Est GFR ( Amer) 2.7 Est GFR (Non-Af Amer) 2.4 BUN/Creatinine Ratio 5.2 L Glucose 114 H POC Glucose 85 Calcium 8.2 L 05/25/19 05/25/19 05/25/19 15:46 15:59 20:06 WBC 7.50 RBC 2.43 L Hgb 7.6 L Hct 23.3 L MCV 95.9 MCH 31.3 MCHC 32.6 RDW Std Deviation 54.5 H RDW Coeff of Laith 15.7 H Plt Count 130 MPV 9.3 Sodium Potassium Chloride Carbon Dioxide Anion Gap BUN Creatinine Est Cr Clr Drug Dosing Est GFR ( Amer) Est GFR (Non-Af Amer) BUN/Creatinine Ratio Glucose POC Glucose 94 106 H Calcium 05/26/19 05/26/19 05/26/19 07:09 08:02 08:02 WBC 5.67 RBC 2.36 L Hgb 7.5 L Hct 23.0 L MCV 97.5 MCH 31.8 MCHC 32.6 RDW Std Deviation 53.9 H RDW Coeff of Laith 15.3 H Plt Count 117 L MPV 9.2 Sodium 132 L Potassium 4.1 D Chloride 96 L Carbon Dioxide 25 Anion Gap 10.0 BUN 41 H D Creatinine 9.95 H* D Est Cr Clr Drug Dosing 9.9 Est GFR ( Amer) 5.3 Est GFR (Non-Af Amer) 4.6 BUN/Creatinine Ratio 4.1 L Glucose 85 POC Glucose 87 Calcium 8.4 L (1) HTN (hypertension) Hypertension type: essential hypertension Qualified Code(s): I10 - Essential (primary) hypertension
--- NOTE | 2019-05-26 15:43 | Hospitalist Progress Note ---
Date of Service May 26, 2019 Assessment & Plan (1) Shortness of breath: Mostly related to pulmonary edema due to ESRD on PD vs Anemia CXR showed progression of interstitial thickening and bilateral opacities CTA chest showed interstitial pulmonary edema. No pulmonary emboli identified Nephrology on board Had HD done yesterday and plan to HD today Next hemodialysis at the outpatient unit tomorrow (sat) ESRD Had HD yesterday and plan for HD today Nephrology on board She said that she does not like HD because she is tired after HD Continue phoslo, sevelamer, sensipar Next HD on Saturday outpatient Symptomatic anemia Anemia due to end stage renal disease Hgb 8.4 on admission dropped to 7.5 today Received Epogen [id number] unit during HD Will hold on PRBC transfusion as per nephro Continue monitor CBC Elevated troponin Chronic elevated troponin Trop on admission 0.2 EKG showed no ischemic changes Recently admitted 04/21- 04/25 with chest pain and underwent echocardiogram. She was also seen and evaluated by cardiology who recommended stress echo but unable to perform due to uncontrolled hypertension Stable HTN (hypertension) BP improved Continue amlodipine 10mg and coreg increased to 25mg Continue Enalapril 5mg BID Hydralazine IV PNR adding Monitor BP closely Prolonged QT interval: QTC 503 today Will monitor closely while on Zoloft Avoid QTC prolonging drugs Back pain Xray Lumbar showed no acute lumbar spine fracture or subluxation. Continue Tramadol prn Stable Abdominal pain CT abd showed moderate peritoneal fluid within the pelvis and small amount of peritoneal fluid within the abdomen. This represents peritoneal dialysate. Mild increased attenuation of this fluid is nonspecific but may be related to recent contrast-enhanced CT. Tolerated diet continue Tramadol Depression On zoloft, mirtazapine monitor QTC Stable DVT prophylaxis: No heparin subq due to low hemoglobin On SCD DVT px FULL CODE Disposition Will discharge home today after HD Follow up with PCP Dr. Aldridge on 06/01 @ 2:55 PM Subjective Pt was seen and examined Lying in bed with no distress She is said that she is tired Plan to get HD done today Denies any chest pain, palpitation and fever Physical Exam Physical Exam: General- No acute distress Head- atraumatic Eyes- PERRL, EOMI, ENT- oropharynx clear Neck- supple, no JVD Lungs- clear to auscultation Heart- regular rhythm; no murmur Abdomen- normal bowel sounds Extremities- no calf tenderness, no edema Neuro- alert, oriented x 3; PERRL, EOMI; no facial palsy; no dysarthria Skin- warm & dry Results & Data Vital Signs (Past 12 Hours) Vital Signs Temp Pulse Pulse Resp BP Pulse Ox 05/26/19 10:51 36.8 C 72 18 144/76 H 95 05/26/19 08:00 77 05/26/19 07:09 36.9 C 74 18 182/104 H 95 05/26/19 04:56 37.3 C 77 18 158/88 H 95
[2019-05-26] MEDS: ENALAPRIL MALEATE 5 MG TAB PO SCH (17:07)
--- NOTE | 2019-05-26 18:35 | Discharge Summary ---
Date of Service May 26, 2019 Admission HPI Per Admitting Provider History obtained from patient and records. Medical history significant for hypertension, ESRD on PD, history of FSGS status post failed renal transplantation, DM2, diet controlled, mood disorder, history of umbilical hernia, chronic anemia (baseline hemoglobin of 8-9), history of migraine, ongoing tobacco abuse. Recent confinement 2 weeks ago for shortness of breath, symptomatic anemia. 2 days history of substernal pain with shortness of breath, no cough symptoms. Compliant with home PD as per patient. Worsening umbilical hernia pain, no constipation, no diarrhea symptoms. Patient to transition to hemodialysis however next week as per nephrology recommendations. SBP noted to be 200s at the ER. Patient received Coreg, Enalapril, IV Lasix as per mixing operator's recommendation as per ER provider. Medical History as above Surgical History : Vascular procedures, section, cystoscopy, knee surgery, eye surgery, BTL, renal biopsy, kidney transplant Family History : SLE, Crohn's disease, high blood pressure, depression Personal/Social history : Few cigarettes a day, no EtOH intake Admission Exam Per Admitting Provider GENERAL: Comfortable, obese, no respiratory distress SKIN: Sallow , warm HEENT: Pale palpebral conjunctivae, no ptosis, dry buccal mucosa NECK : Supple, short neck, no tenderness CHEST : Decreased breath sounds, no tenderness HEART : RRR, no obvious murmurs ABDOMEN: Some distention, tender umbilical protuberance EXTREMITIES : Minimal LE swelling/tenderness, no other conspicuous deformities noted NEUROLOGIC : Coherent, no facial asymmetry, no other gross focality Principal Diagnosis (1) SOB (shortness of breath (2) Symptomatic anemia (3) Anemia due to end stage renal disease (4) Elevated troponin (5) ESRD on chronic dialysis (6) Hypertension (7) Hyperkalemia (8) Depression Discharge Exam General- No acute distress Head- atraumatic Eyes- PERRL, EOMI, ENT- oropharynx clear Neck- supple, no JVD Lungs- clear to auscultation Heart- regular rhythm; no murmur Abdomen- normal bowel sounds Extremities- no calf tenderness, no edema Neuro- alert, oriented x 3; PERRL, EOMI; no facial palsy; no dysarthria Skin- warm & dry Discharge Data Allergies Allergy/AdvReac Type Severity Reaction Status Date / Time cefaclor Allergy Intermediate Rash Verified 05/23/19 15:41 amoxicillin AdvReac Mild VOMITING Verified 05/23/19 15:41 clavulanic acid AdvReac Mild VOMITING Verified 05/23/19 15:41 Consultations 05/23/19 19:41 ED Decision to Admit Stat 05/23/19 21:33 Consult Nephrology Routine Ordered Studies 05/23/19 16:43 US venous doppler LE BI Stat 05/23/19 17:40 CT angio chest PE protocol Stat 05/23/19 20:16 CT abd pelvis wo con Urgent CT OF THE ABDOMEN AND PELVIS WITHOUT CONTRAST CLINICAL HISTORY: Worsening hernia pain. COMPARISON STUDY: CT of the abdomen and pelvis May 08, 2019. Abdominal ultrasound May 16, 2019. TECHNIQUE: Axial images of the abdomen and pelvis were obtained without IV contrast. Images were reviewed in the axial, sagittal, and coronal planes. Automated exposure control was utilized for the study. A dose lowering technique was utilized adhering to the principles of ALARA. FINDINGS: Imaged portions of the lower chest demonstrate cardiomegaly with trace pericardial fluid. There are trace bilateral pleural effusions. Interlobular septal thickening and groundglass opacities are noted within the lower lungs. A small amount of abdominal fluid is noted with a moderate amount of pelvic peritoneal fluid. A peritoneal dialysis catheter terminates within the right lower quadrant. Attenuation of the fluid is slightly increased. There is no evidence for a bowel obstruction. Evaluation of the abdomen and pelvis is suboptimal as unenhanced examination. There is no biliary ductal dilatation status post cholecystectomy. Unenhanced images of the spleen, adrenal glands and pancreas are unremarkable. There is marked atrophy of the teller kidneys. An atrophic calcified right lower quadrant allograft is noted. There is colonic diverticulosis without evidence for acute diverticulitis. Appendix is partially obscured but visualized portions are normal. A small fat and fluid containing umbilical hernia is similar to prior exam. No suspicious osseous lesions are present. IMPRESSION: 1. Moderate peritoneal fluid within the pelvis and small amount of peritoneal fluid within the abdomen. This represents peritoneal dialysate. Mild increased attenuation of this fluid is nonspecific but may be related to recent contrast- enhanced CT. A small amount of hemorrhage could appear similar but is considered less likely. 2. No significant change in a small fluid and fat-containing umbilical hernia. 3. No bowel obstruction. 4. Cardiomegaly with evidence for pulmonary edema. Trace bilateral pleural effusions. Electronically signed by: Sebastian Mcclain M.D. 05/23/2019 8:52 PM Dictated: 05/23/192040 Transcribed: 05/23/192040 CT ANGIOGRAPHY OF THE CHEST, PULMONARY EMBOLUS PROTOCOL CLINICAL HISTORY: PE- +dimer. On dialysis. COMPARISON STUDY: Chest CT May 06, 2017. Chest radiograph performed earlier today. TECHNIQUE: Following IV administration of 89 mL of Optiray-320, helical axial images of the chest were obtained utilizing the pulmonary embolus protocol. Maximal intensity projections and sagittal and coronal reformats were viewed on an independent 3D workstation. IV contrast was administered without complication. Automated exposure control was utilized for the study. A dose lowering technique was utilized adhering to the principles of ALARA. CT DOSE: 682.04 mGy.cm FINDINGS: No pulmonary emboli are identified although the segmental and subsegmental pulmonary arteries are suboptimally assessed due to respiratory motion. The heart is moderately enlarged. There is moderate coronary artery calcification. No thoracic aortic dissection is present. Central airways are patent. Interlobular septal thickening is noted. Extensive bilateral airspace opacities within the lungs are also noted. There are trace bilateral pleural effusions. No pneumothorax is present. Bony thorax is unremarkable. Small amount of perihepatic ascites is noted IMPRESSION: 1. No pulmonary emboli identified although segmental and subsegmental pulmonary arteries suboptimally assessed due to respiratory motion. 2. Interstitial pulmonary edema. In addition, extensive bilateral airspace opacities which favor alveolar edema however bilateral pneumonia could appear similar. 3. Trace bilateral pleural effusions. 4. Moderate cardiomegaly and coronary artery calcification. 5. Small amount of perihepatic ascites. Electronically signed by: Sebastian Mcclain M.D. 05/23/2019 6:24 PM Dictated: 05/23/191816 Transcribed: 05/23/191816 BILATERAL LOWER EXTREMITY VENOUS DOPPLER CLINICAL HISTORY: Shortness of breath. COMPARISON STUDY: Bilateral lower extremity venous Doppler ultrasound August 11, 2017. TECHNIQUE: Sonography of the deep venous system of the bilateral lower extremities was performed. Compression and augmentation were evaluated. FINDINGS: The bilateral common femoral, superficial femoral and popliteal veins were compressible. Augmentation was normal. Flow was shown within the deep calf vessels. IMPRESSION: No evidence of deep venous thrombus within the bilateral lower extremities. Electronically signed by: Sebastian Mcclain M.D. 05/23/2019 5:33 PM Dictated: 05/23/19 173 Transcribed: 09/28/19 1733 XR lumbar spine min 4V routine CLINICAL HISTORY: Fall. COMPARISON STUDY: Head CT February 15, 2017. FINDINGS: Alignment of the lumbar spine is anatomic. There is no acute fracture. Disc spaces are preserved. Vertebral body heights are maintained. A peripherally calcified density within the right lower quadrant represents an old allograft. Peritoneal dialysis catheter is partially imaged. There are cholecystectomy clips. Bowel gas pattern is normal. IMPRESSION: No acute lumbar spine fracture or subluxation. Electronically signed by: Sebastian Mcclain M.D. 05/23/2019 4:50 PM Dictated: 05/23/19 164 Transcribed: 05/23/191648 XR chest 2V routine CLINICAL HISTORY: Chest pain. COMPARISON STUDY: Chest radiograph May 05, 2019. FINDINGS: Moderate cardiomegaly is noted. This is unchanged. There is no pneumothorax or pleural effusion. Interstitial thickening and bilateral opacities are noted. Airspace opacities have progressed since exam May 05, 2019. There are cholecystectomy clips. IMPRESSION: 1. Progression of interstitial thickening and bilateral opacities. The findings may reflect pulmonary edema or an infectious process. Radiographic follow-up is recommended. 2. Moderate cardiomegaly. Electronically signed by: Sebastian Mcclain M.D. 05/23/2019 4:48 PM Dictated: 05/23/191644 Transcribed: 05/23/191644 Hospital Course (1) Shortness of breath: Mostly related to pulmonary edema due to ESRD on PD vs Anemia CXR showed progression of interstitial thickening and bilateral opacities CTA chest showed interstitial pulmonary edema. No pulmonary emboli identified Nephrology on board Had HD done yesterday and plan to HD today Next hemodialysis at the outpatient unit tomorrow (sat) ESRD Had HD yesterday and plan for HD today Nephrology on board She said that she does not like HD because she is tired after HD Continue phoslo, sevelamer, sensipar Next HD on Saturday outpatient Symptomatic anemia Anemia due to end stage renal disease Hgb 8.4 on admission dropped to 7.5 today Received Epogen [id number] unit during HD Will hold on PRBC transfusion as per nephro Continue monitor CBC Elevated troponin Chronic elevated troponin Trop on admission 0.2 EKG showed no ischemic changes Recently admitted 04/21- 04/25 with chest pain and underwent echocardiogram. She was also seen and evaluated by cardiology who recommended stress echo but unable to perform due to uncontrolled hypertension Stable HTN (hypertension) BP improved Continue amlodipine 10mg and coreg increased to 25mg Continue Enalapril 5mg BID Hydralazine IV PNR adding Monitor BP closely Prolonged QT interval: QTC 503 today Will monitor closely while on Zoloft Avoid QTC prolonging drugs Back pain Xray Lumbar showed no acute lumbar spine fracture or subluxation. Continue Tramadol prn Stable Abdominal pain CT abd showed moderate peritoneal fluid within the pelvis and small amount of peritoneal fluid within the abdomen. This represents peritoneal dialysate. Mild increased attenuation of this fluid is nonspecific but may be related to recent contrast-enhanced CT. Tolerated diet continue Tramadol Depression On zoloft, mirtazapine monitor QTC Stable Hyperkalemia Due to ESRD Potassium supplement discontinued Continue monitor BMP DVT prophylaxis: No heparin subq due to low hemoglobin On SCD DVT px FULL CODE Disposition Will discharge home today after HD Follow up with PCP Dr. Aldridge on 06/01 @ 2:55 PM Total Time Total Time Spent Total Time Spent (In Minutes): 35 minutes Total Time Includes: Examination of the Patient, Discharge Planning, Medication Reconciliation, Communication With Other Providers and Other Discharge Plan Discharge Items Patient Disposition: Home - Self-Care Reason For Visit: CHF, HTN URGENCY Discharge Diagnosis: Shortness of Breath End Stage renal disease on dialysis Elevated troponin Anemia Hypertension Activity: Resume your previous activity Activity Comment: as toleraed Follow-up/Referrals: Adolph Aldridge MD [Primary Care Provider] - [facility] Attending Provider Instructions: Follow up with your primary care provider Dr. Aldridge on 06/01 @ 2:55 PM Follow up with your nephrology Your next hemodialysis schedule for tomorrow (Saturday) morning at [facility] Monitor your blood pressure Follow a low salt diet Check CBC in 1 week to monitor your hemoglobin Carvedilol increased to 25mg twice a day Your physician will need to monitor QTC on your EKG while on Zoloft Pending Studies at Discharge: No Stand-Alone Forms: My [facility] [employer] Medications and DC Order Prescriptions: New carvedilol 25 mg Tablet 25 mg PO BID 30 Days Qty: 60 RF: 0 Continued loratadine 10 mg tablet 10 mg PO HS PRN (Reason: Allergy Symptoms) RF: 0 cinacalcet [Sensipar] 30 mg tablet 30 mg PO QPM RF: 0 amlodipine [Norvasc] 5 mg tablet 10 mg PO DAILY RF: 0 enalapril maleate 5 mg Tablet 5 mg PO BID 30 Days Qty: 60 RF: 0 sumatriptan succinate [Imitrex] 50 mg tablet 50 mg PO DIRECTED MDD 100 MG/24 HOURS PRN (Reason: Migraine Headache) RF: 0 albuterol sulfate [Ventolin HFA] 90 mcg/actuation HFA aerosol inhaler 2 puff Inhalation QID PRN (Reason: Shortness Of Breath Or Wheezing) RF: 0 sertraline [Zoloft] 50 mg tablet 50 mg PO QAM RF: 0 calcium acetate 667 mg capsule 3,335 mg PO TIDM RF: 0 calcium acetate 667 mg capsule 2,668 mg PO DIRECTED RF: 0 mirtazapine 30 mg Tablet 30 mg PO HS RF: 0 gabapentin [Neurontin] 400 mg capsule 800 mg PO HS RF: 0 calcium acetate 667 mg capsule 1,334 mg PO DIRECTED RF: 0 gabapentin 400 mg Capsule 400 mg PO DIRECTED RF: 0 sevelamer carbonate 800 mg tablet 1,600 mg PO TIDM RF: 0 famotidine [Pepcid] 40 mg Tablet 40 mg PO DAILY RF: 0 acetaminophen [Tylenol Extra Strength] 500 mg Tablet 1,000 mg PO Q6H PRN (Reason: Pain) RF: 0 Discontinued carvedilol 12.5 mg tablet 12.5 mg PO BID RF: 0 potassium chloride 20 mEq tablet extended release 20 meq PO DAILY Qty: 30 RF: 1 Discharge Orders: Discharge Order (Routine); Ordered 05/26/19 Ordered By: Ambreen Lutz Admission Data Admit Date/Time: 05/23/19 20:31 Attending Provider: Ambreen Lutz Admit Provider: Gilles Cunningham Primary Care Provider: Adolph Aldridge Other Providers: Gilles Cunningham ; Pato Saucedo
== END 2019-05-26 19:11 | disposition home or self-care (01) | DRG 682 ==
LOC: ED 14:00 → 2S 20:31

== ENCOUNTER 2019-06-06 21:25 | Inpatient (IN) ==
--- NOTE | 2019-06-06 22:25 | XRay Report ---
XR chest 1V portable HISTORY: 33 years-old Female Dyspnea acute shortness of breath COMPARISON: Chest radiograph 06/03/2019 TECHNIQUE: Portable AP view of the chest FINDINGS: Cardiac silhouette is enlarged, unchanged. Pulmonary vascular congestion with interstitial coarsening . No pneumothorax. Trace pleural effusions. No lobar airspace consolidation. IMPRESSION: 1. Cardiomegaly with pulmonary edema. 2. Trace pleural effusions. The above report was generated using voice recognition software. It may contain grammatical, syntax o r spelling errors. Electronically signed by: Alejandro Copeland M.D. 06/06/2019 10:23 PM
[2019-06-06] MEDS ORDERED: ACETAMINOPHEN 500 MG TAB PO STA (23:01)
[2019-06-06 23:02] LABS: Hematocrit (blood only) 19.4 % (37-47); Hemoglobin 6.5 g/dL (12.0-16.0); Mean Corpuscular Hemoglobin 32.3 pg (25-34); Mean Corpuscular Hgb Conc 33.5 g/dL (32-36); Mean Corpuscular Volume 96.5 fL (80-100); Mean Platelet Volume 9.4 fL (7.4-10.4); Platelet Count 135 K/uL (130-400); RDW Coefficient of Variation 15.1 % (11.5-14.5); RDW Standard Deviation 53.3 fL (36.4-46.3); Red Blood Count 2.01 M/uL (4.2-5.4); White Blood Count 6.41 K/uL (4.8-10.8)
[2019-06-06 23:15] LABS: Basophils # (auto) 0.03 K/uL (0-0.2); Basophils % (auto) 0.5 %; Eosinophils # (auto) 0.58 K/uL (0-0.5); Immature Granulocytes # (auto) 0.01 K/uL (0.00-0.02); Immature Granulocytes % (auto) 0.2 %; Lymphocytes % (auto) 12.5 %; Monocytes # (auto) 0.35 K/uL (0.11-0.59); Monocytes % (auto) 5.5 %; Neutrophils # (auto) 4.64 K/uL (1.4-6.5); Neutrophils % (auto) 72.3 %; Poikilocytosis Present; Pregnancy Test, Serum Negative (Negative)
[2019-06-06 23:31] LABS: Albumin Globulin Ratio 0.7 (0.9-2); Albumin Level 2.8 gm/dl (3.4-5.0); BUN Creatinine Ratio 5.8 (10-20); Bilirubin,Total 0.4 mg/dl (0.2-1); Calcium 7.9 mg/dl (8.5-10.1); Est GFR (African American) 2.4; Est GFR (Non-African American) 2.1; Globulin 3.9 gm/dl (2.5-4.0); Magnesium 2.6 mg/dl (1.8-2.4); Potassium 5.3 mmol/L (3.5-5.1); Total Protein 6.7 gm/dl (6.4-8.2); Troponin I 0.16 ng/ml (0-0.045)
[2019-06-06 23:39] LABS: INR 1.1 (0.9-1.1); Prothrombin Time 10.9 Seconds (9.0-12.0)
[2019-06-06 23:42] LABS: Partial Thromboplastin Ratio < 0.8; Partial Thromboplastin Time < 20.0 Seconds (21.0-31.0)
[2019-06-06] MEDS ORDERED: SODIUM CHLORIDE 0.9% 250 ML IV PRN (23:59)
--- NOTE | 2019-06-07 00:51 | Emergency Department Note ---
Entered by Racheal Lopez acting as a scribe for Karan Santiago MD History of Present Illness General Chief complaint: Shortness of Breath/Dyspnea Stated complaint: SOB Time Seen by Provider: 06/06/19 21:56 Source: patient History of Present Illness Onset (ago): week(s) 1 Location: chest Pain Consistency: + constant Maximum Pain Intensity: 9 Current Pain Intensity: 9 Exacerbated By: + movement and + other (deep breath) Associated symptoms: + cough and + shortness of breath The patient is a 33 year old female who presents to the Emergency Room with complaints of shortness of breath that started a week ago. She did not make it to her dialysis appointment that was scheduled for Saturday. She reports that she did not have transportation to the facility, because she cannot drive and missed her ride. She is not doing peritoneal dialysis anymore. She has had the fistula since 2016. The last time she received dialysis was last week. She has a cough when she takes a deep breath or when she walks. She also reports dark jelly like globs when she gets her period. The patient notes a recent decreased frequency of smoking. Home Medications Home Medications Medication Instructions Recorded Confirmed Type albuterol sulfate [Ventolin HFA] 2 puff INHALATION QID PRN 05/30/18 06/06/19 History calcium acetate 2,668 mg PO DIRECTED 05/30/18 06/06/19 History calcium acetate 3,335 mg PO TIDM 05/30/18 06/06/19 History sertraline [Zoloft] 50 mg PO QAM 05/30/18 06/06/19 History sumatriptan succinate [Imitrex] 50 mg PO DIRECTED PRN MDD 100 05/30/18 06/06/19 History MG/24 HOURS loratadine 10 mg PO HS PRN 07/30/18 06/06/19 History mirtazapine [Remeron] 30 mg PO HS 10/08/18 06/06/19 History amlodipine [Norvasc] 10 mg PO QAM 11/03/18 06/06/19 History cinacalcet [Sensipar] 30 mg PO QPM 11/03/18 06/06/19 History gabapentin [Neurontin] 800 mg PO HS 11/26/18 06/06/19 History calcium acetate 1,334 mg PO DIRECTED 01/24/19 06/06/19 History gabapentin [Neurontin] 400 mg PO DIRECTED 01/24/19 06/06/19 History famotidine [Pepcid] 40 mg PO DAILY 04/21/19 06/06/19 History sevelamer carbonate [Renvela] 1,600 mg PO TIDM 04/21/19 06/06/19 History acetaminophen [Tylenol Extra 1,000 mg PO Q6H PRN 05/23/19 06/06/19 History Strength] carvedilol [Coreg] 25 mg PO BID 06/06/19 06/06/19 History Allergies Allergy/AdvReac Type Severity Reaction Status Date / Time cefaclor Allergy Intermediate Rash Verified 06/06/19 22:05 amoxicillin AdvReac Mild VOMITING Verified 06/06/19 22:05 clavulanic acid AdvReac Mild VOMITING Verified 06/06/19 22:05 Past Med/Surg History Medical History Fistula of artery (Chronic) Diastolic CHF (Chronic) "echo 04/18/17 - EF 60-65%, grade II diastolic dysfunction" FSGS (focal segmental glomerulosclerosis) (Chronic) DM2 (diabetes mellitus, type 2) (Chronic) HTN (hypertension) (Chronic) CKD (chronic kidney disease) stage V requiring chronic dialysis (Chronic) Peritoneal dialysis catheter in place (Chronic) Dependence on peritoneal dialysis (Acute) Depression (Chronic) Surgical History H/O knee surgery (Resolved) H/O: (Resolved) H/O tubal ligation (Resolved) H/O eye surgery (Resolved) H/O section (Resolved) History of cholecystectomy (Resolved) H/O hernia repair (Resolved) Family History Grandmother Hx of CABG Mother Diabetes Father Crohn's disease Social History Preferred Language: Latvian Communication Ability: Effective Tube Draw Helper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 Beliefs That Will Affect Care: None marital status: Current Living Situation: Family and Significant Other Current Living Situation Comment: [facility] current occupational status: employed Other Information That Helps Us Care for You: No Feels Safe at Home: Yes Safety Concerns: Feels Safe At This Time Smoking Status: Current some day smoker Tobacco Type: cigarettes ; Cigarettes Per Day: 2 ; Do You Dip or Chew Tobacco: No ; Second Hand Exposure: No ; Tobacco Cessation Education Requested by Patient: No Hx Alcohol Use: Yes Alcohol type: hard liquor Alcohol Intake Frequency Comment: q3 months Hx Substance Use: No Review of Systems See HPI for pertinent positives & negatives. and A total of 10 systems reviewed and were otherwise negative Physical Exam Vital Signs Vital Signs - 24 hr 06/06/19 21:32 06/06/19 23:05 06/07/19 01:06 Temperature 37.1 C Temperature Source Oral Sepsis Recent Fever Within 48 Hours No Sepsis Action Taken by Nursing No Action Required Pulse Rate 93 H Pulse Rate [Right Finger] 90 85 Pulse Rhythm Regular Pulse Strength Normal Respiratory Rate 20 18 18 Respiratory Effort / Characteristics Non-Labored Spontaneous Non-Labored Spontaneous Non-Labored Spontaneous Respiratory Depth Normal Normal Normal Respiratory Pattern Regular Regular Regular Blood Pressure 154/122 H Blood Pressure [Right Arm] 190/120 H 183/109 H Blood Pressure Mean 132 Blood Pressure Mean [Right Arm] 143 133 Blood Pressure Position Sitting Blood Pressure Position [Right Arm] Sitting Lying Pulse Oximetry 98 100 95 Oxygen Delivery Method Room Air Room Air Room Air 06/07/19 01:39 06/07/19 01:55 06/07/19 01:56 Temperature 37.0 C 37.0 C 37.0 C Temperature Source Oral Oral Oral Sepsis Recent Fever Within 48 Hours Sepsis Action Taken by Nursing Pulse Rate 83 82 83 Pulse Rate [Right Finger] Pulse Rhythm Pulse Strength Respiratory Rate 16 16 16 Respiratory Effort / Characteristics Respiratory Depth Respiratory Pattern Blood Pressure 170/111 H 174/111 H 175/111 H Blood Pressure [Right Arm] Blood Pressure Mean 130 132 132 Blood Pressure Mean [Right Arm] Blood Pressure Position Lying Lying Lying Blood Pressure Position [Right Arm] Pulse Oximetry 95 95 95 Oxygen Delivery Method 06/07/19 02:11 06/07/19 02:41 06/07/19 03:00 Temperature 37.0 C 36.5 C Temperature Source Oral Oral Sepsis Recent Fever Within 48 Hours Sepsis Action Taken by Nursing Pulse Rate 81 82 Pulse Rate [Right Finger] 82 Pulse Rhythm Pulse Strength Respiratory Rate 15 16 16 Respiratory Effort / Characteristics Non-Labored Spontaneous Respiratory Depth Normal Respiratory Pattern Regular Blood Pressure 175/113 H 166/110 H Blood Pressure [Right Arm] 159/106 H Blood Pressure Mean 133 128 Blood Pressure Mean [Right Arm] 123 Blood Pressure Position Lying Lying Blood Pressure Position [Right Arm] Sitting Pulse Oximetry 96 98 99 Oxygen Delivery Method Room Air GENERAL: NAD, non-toxic. EYE EXAM: Normal conjunctiva. PERRL, no anisocoria and EOM's grossly intact w/o pain. OROPHARYNX: Moist mucous membranes. Grossly normal dentition. NECK: Supple, no nuchal rigidity, no adenopathy, non-tender. No signs of meningismus. LUNGS: Clear to auscultation. Normal chest wall mechanics. HEART: NSR, no MRG. ABDOMEN: PD catheter in place. Abdomen soft, non-tender, normo-active bowel s ounds, no masses, no rebound or guarding. BACK: No CVA TTP. SKIN: No rashes and no bruising. UPPER EXTREMITIES: Left AV fistula with palpable thrill. Upper extremities are grossly normal. LOWER EXTREMITIES: No pitting edema. No calf pain. NEURO EXAM: A&O x3, cranial nerves II-XII grossly intact, normal speech, moves all 4 extremities on command w/o issue. Course 2201: Past medical records reviewed. The patient was evaluated in room B10. A complete history and physical exam was performed. 8: I rechecked on the patient, who was resting in bed. 2302: The patient was give 1000mg PO Tylenol. 2348: I consented the patient for blood. Administered Medications Amlodipine Besylate (Norvasc) 10 mg PO QAM NIKKI Stop: 07/07/19 02:04 Last Admin: 06/07/19 05:12 Dose: Not Given Documented by: [id number] Calcium Acetate (Phoslo) 3,335 mg PO TIDM NIKKI Stop: 07/07/19 07:59 Last Admin: 06/07/19 12:35 Dose: 3,335 mg Documented by: [id number] Admin: 06/07/19 08:39 Dose: Not Given Documented by: [id number] Carvedilol (Coreg) 25 mg PO BID NIKKI Stop: 07/07/19 04:18 Last Admin: 06/07/19 05:11 Dose: 25 mg Documented by: [id number] Famotidine (Pepcid) 40 mg PO DAILY [facility] Stop: 07/07/19 08:59 Last Admin: 06/07/19 08:40 Dose: 40 mg Documented by: [id number] Gabapentin (Neurontin) 400 mg PO BID@0800,1200 [facility] Stop: 07/07/19 07:59 Last Admin: 06/07/19 12:36 Dose: 400 mg Documented by: [id number] Admin: 06/07/19 08:40 Dose: 400 mg Documented by: [id number] Sodium Chloride (Nss) 250 mls @ 15 mls/hr IV .[id number] PRN PRN Reason: For Transfusion Stop: 07/06/19 23:58 Last Admin: 06/07/19 02:12 Dose: 15 mls/hr Documented by: [id number] Insulin Aspart (Novolog Flexpen) 0 units SC ACHS [facility] Stop: 07/07/19 07:29 Last Admin: 06/07/19 12:34 Dose: Not Given Documented by: [id number] Cosigned by: [id number] Admin: 06/07/19 08:50 Dose: Not Given Documented by: [id number] Cosigned by: [id number] Loratadine (Claritin) 10 mg PO HS PRN PRN Reason: Allergy Symptoms Stop: 07/07/19 04:18 Last Admin: 06/07/19 08:39 Dose: 10 mg Documented by: [id number] Miscellaneous (Order Awaiting Action) 1 ea N/A QS [facility] Stop: 07/07/19 07:59 Last Admin: 06/07/19 17:38 Dose: Not Given Documented by: [id number] Admin: 06/07/19 08:41 Dose: Not Given Documented by: [id number] Norethindrone (Aygestin) 10 mg PO DAILY [facility] Stop: 06/21/19 04:29 Last Admin: 06/07/19 05:12 Dose: 10 mg Documented by: [id number] Sertraline HCl (Zoloft) 50 mg PO QAM [facility] Stop: 07/07/19 08:59 Last Admin: 06/07/19 08:39 Dose: 50 mg Documented by: [id number] Sevelamer HCl (Renagel) 1,600 mg PO TIDM [facility] Stop: 07/07/19 07:59 Last Admin: 06/07/19 12:35 Dose: 1,600 mg Documented by: [id number] Admin: 06/07/19 08:39 Dose: 1,600 mg Documented by: [id number] Tramadol HCl (Ultram) 25 mg PO Q4H PRN PRN Reason: Pain Stop: 07/07/19 02:51 Last Admin: 06/07/19 02:59 Dose: 25 mg Documented by: [id number] Discontinued Medications Acetaminophen (Tylenol) 1,000 mg PO NOW STA Stop: 06/06/19 23:02 Last Admin: 06/06/19 23:05 Dose: 1,000 mg Documented by: [id number] Dextrose (Dextrose 50%) 50 ml IV NOW ONE Stop: 06/07/19 02:06 Last Admin: 06/07/19 02:23 Dose: 50 ml Documented by: [id number] Epoetin Travis (Procrit) 20,000 units IV ONE ONE Stop: 06/07/19 08:42 Last Admin: 06/07/19 17:02 Dose: 20,000 units Documented by: [id number] Heparin Sodium (Porcine) (Heparin Iv Bolus) 1,000 units IV ONE ONE Stop: 06/07/19 08:42 Last Admin: 06/07/19 16:49 Dose: Not Given Documented by: [id number] Heparin Sodium (Porcine) (Heparin Iv Bolus) 400 units IV Q1H NIKKI Stop: 06/07/19 10:46 Last Admin: 06/07/19 16:50 Dose: Not Given Documented by: [id number] Admin: 06/07/19 16:50 Dose: Not Given Documented by: [id number] Admin: 06/07/19 16:49 Dose: Not Given Documented by: [id number] Insulin Human Regular (Novolin R U-100 Per Unit) 10 units IV NOW STA Stop: 06/07/19 02:19 Last Admin: 06/07/19 02:23 Dose: 10 units Documented by: [id number] Cosigned by: [id number] Insulin Human Regular (Novolin R U-100 Per Unit) Confirm Administered Dose 10 units .ROUTE .STK-MED ONE Stop: 06/07/19 02:21 Last Admin: 06/07/19 02:22 Dose: Not Given Documented by: [id number] Sodium Bicarbonate (Sodium Bicarbonate 8.4%) 50 meq IV NOW STA Stop: 06/07/19 02:06 Last Admin: 06/07/19 02:23 Dose: 50 meq Documented by: [id number] Tramadol HCl (Ultram) Confirm Administered Dose 50 mg .ROUTE .[employer]-MED ONE Stop: 06/07/19 02:57 Last Admin: 06/07/19 02:59 Dose: Not Given Documented by: [id number] Medical Decision Making Differential Diagnosis Differential diagnosis includes: infections, reactive airway disease, pneumonia, pneumothorax, COPD, CHF, cardiac ischemia, pulmonary embolism, musculoskeletal, gastrointestinal, as well as others were entertained. Medical Records Attestation: I reviewed the patient's medical records. Home Medications Current Medication List: was personally reviewed by me Laboratory Data Attestation: I reviewed the patient's lab results. Result diagrams: 06/07/19 12:19 06/07/19 06:49 Lab Results 06/06/19 06/06/19 06/06/19 Range/Units 22:34 22:34 22:34 WBC 6.41 (4.8-10.8) K/uL RBC 2.01 L (4.2-5.4) M/uL Hgb 6.5 L* (12.0-16.0) g/dL Hct 19.4 L* (37-47) % MCV 96.5 (80-100) fL MCH 32.3 (25-34) pg MCHC 33.5 (32-36) g/dL RDW Std Deviation 53.3 H (36.4-46.3) fL RDW Coeff of Laith 15.1 H (11.5-14.5) % Plt Count 135 (130-400) K/uL MPV 9.4 (7.4-10.4) fL Immature Gran % (Auto) 0.2 % Neut % (Auto) 72.3 % Lymph % (Auto) 12.5 % Shannon % (Auto) 5.5 % Eos % (Auto) 9.0 % Baso % (Auto) 0.5 % Immature Gran # (Auto) 0.01 (0.00-0.02) K/uL Neut # (Auto) 4.64 (1.4-6.5) K/uL Lymph # (Auto) 0.80 L (1.2-3.4) K/uL Shannon # (Auto) 0.35 (0.11-0.59) K/uL Eos # (Auto) 0.58 H (0-0.5) K/uL Baso # (Auto) 0.03 (0-0.2) K/uL Poikilocytosis Present PT 10.9 (9.0-12.0) Seconds INR 1.1 (0.9-1.1) APTT < 20.0 L (21.0-31.0) Seconds PTT Ratio < 0.8 Sodium (136-145) mmol/L Potassium (3.5-5.1) mmol/L Chloride (98-107) mmol/L Carbon Dioxide (21-32) mmol/L Anion Gap (3-11) BUN (7-18) mg/dl Creatinine (0.6-1.2) mg/dl Est Cr Clr Drug Dosing ml/min Est GFR ( Amer) Est GFR (Non-Af Amer) BUN/Creatinine Ratio (10-20) Glucose (70-99) mg/dl Calcium (8.5-10.1) mg/dl Magnesium (1.8-2.4) mg/dl Total Bilirubin (0.2-1) mg/dl AST (15-37) U/L ALT (12-78) U/L Alkaline Phosphatase (45-117) U/L Troponin I (0-0.045) ng/ml Total Protein (6.4-8.2) gm/dl Albumin (3.4-5.0) gm/dl Globulin (2.5-4.0) gm/dl Albumin/Globulin Ratio (0.9-2) HCG, Qual Negative (Negative) Blood Type Antibody Screen Crossmatch 06/06/19 06/07/19 Range/Units 22:34 00:13 WBC (4.8-10.8) K/uL RBC (4.2-5.4) M/uL Hgb (12.0-16.0) g/dL Hct (37-47) % MCV (80-100) fL MCH (25-34) pg MCHC (32-36) g/dL RDW Std Deviation (36.4-46.3) fL RDW Coeff of Laith (11.5-14.5) % Plt Count (130-400) K/uL MPV (7.4-10.4) fL Immature Gran % (Auto) % Neut % (Auto) % Lymph % (Auto) % Shannon % (Auto) % Eos % (Auto) % Baso % (Auto) % Immature Gran # (Auto) (0.00-0.02) K/uL Neut # (Auto) (1.4-6.5) K/uL Lymph # (Auto) (1.2-3.4) K/uL Shannon # (Auto) (0.11-0.59) K/uL Eos # (Auto) (0-0.5) K/uL Baso # (Auto) (0-0.2) K/uL Poikilocytosis PT (9.0-12.0) Seconds INR (0.9-1.1) APTT (21.0-31.0) Seconds PTT Ratio Sodium 136 (136-145) mmol/L Potassium 5.3 H (3.5-5.1) mmol/L Chloride 105 (98-107) mmol/L Carbon Dioxide 16 L (21-32) mmol/L Anion Gap 15.0 H (3-11) BUN 109 H (7-18) mg/dl Creatinine 19.40 H* D (0.6-1.2) mg/dl Est Cr Clr Drug Dosing 5.0 ml/min Est GFR ( Amer) 2.4 Est GFR (Non-Af Amer) 2.1 BUN/Creatinine Ratio 5.8 L (10-20) Glucose 92 (70-99) mg/dl Calcium 7.9 L (8.5-10.1) mg/dl Magnesium 2.6 H (1.8-2.4) mg/dl Total Bilirubin 0.4 (0.2-1) mg/dl AST 18 (15-37) U/L ALT 20 (12-78) U/L Alkaline Phosphatase 117 (45-117) U/L Troponin I 0.160 H* (0-0.045) ng/ml Total Protein 6.7 (6.4-8.2) gm/dl Albumin 2.8 L (3.4-5.0) gm/dl Globulin 3.9 (2.5-4.0) gm/dl Albumin/Globulin Ratio 0.7 L (0.9-2) HCG, Qual (Negative) Blood Type A Positive Antibody Screen NEGATIVE Crossmatch See Detail Imaging Data Radiologist's Impression: Radiology results as stated below per my review and the radiologist's interpretation: XR chest 1V portable HISTORY: 33 years-old Female Dyspnea acute shortness of breath COMPARISON: Chest radiograph 06/03/2019 TECHNIQUE: Portable AP view of the chest FINDINGS: Cardiac silhouette is enlarged, unchanged. Pulmonary vascular congestion with interstitial coarsening. No pneumothorax. Trace pleural effusions. No lobar airspace consolidation. IMPRESSION: 1. Cardiomegaly with pulmonary edema. 2. Trace pleural effusions. The above report was generated using voice recognition software. It may contain grammatical, syntax or spelling errors. Electronically signed by: Alejandro Copeland M.D. 06/06/2019 10:23 PM ECG Data Attestation: I personally reviewed and interpreted this ECG as follows: Indication: SOB/dyspnea Rate (beats per minute): 97 Rhythm: normal sinus Findings: + other (Normal [place]. Significant motion artifact in several leads. No CT prolongation or QRS widening. ) and + prolonged QT MDM Narrative The patient is a 33 year old female who presents to the Emergency Room with complaints of shortness of breath that started a week ago. Patient was seen and evaluated the bedside. The patient was complaining of shortness of breath. The patient was recently seen here late into Saturday morning. The patient did have an elevated potassium and was to get her dialysis yesterday but was unable to secure a ride. The patient does state that she has [facility] transport to get to her dialysis appointment on Saturday. The patient did a blood work completed. Patient potassium is not elevated. The patient does have low hemoglobin. The patient does have some pulmonary edema seen on chest x-ray with the patient's lungs sound clear and patient is not extremitas. EKG does not show any evidence of any CT or QRS widening. The patient does admit to smoking. I counseled patient on smoking cessation for 5 minutes. Treatment options discussed and resources provided. Patient was not receptive. Patient did relate that she was still having a menstrual period. This may be somewhat contributory the patient has not complained of clots but not an increase in heaviness of the bleeding. Patient's beta-hCG was undetectable. The patient was consented for transfusion. I did discuss with the patient at length that she needs to ensure that she keeps her follow-up appointments as unfortunately we do not have the capacity for cthjeo-bdd-[id number] dialysis anymore at this hospital. The patient has recently switched to hemodialysis from peritoneal dialysis. Patient states she is unable to use the PD catheter anymore. I did sign out the patient to the overnight physician pending reassessment disposition and potential discharge status post transfusion. Impression & Plan CKD (chronic kidney disease) stage V requiring chronic dialysis, Acute dyspnea, Anemia, Encounter for smoking cessation counseling Critical Care Time Critical Care Time: Yes Total Critical Care Time: 45 I have personally spent greater than 45 minutes of critical care time in direct management of this patient. This includes bedside care, interpretation of diagnostic studies, and testing, discussion with consultants, patient, and family members, and other require inpatient management activities. This 45 minutes is in excess of all separately billable procedures. Discharge Plan Visit Data *Final* Discharge Date/Time: 06/07/19 03:52 Chief Complaint: Shortness of Breath/Dyspnea Stated Complaint: SOB ED Provider: Tremaine Allred Discharge Problem: CKD (chronic kidney disease) stage V requiring chronic dialysis, Acute dyspnea, Anemia, Encounter for smoking cessation counseling Patient Disposition: Admitted As Inpatient Discharge Instructions Interventions: ED Discharge Assessment Last Done: 06/07/19 03:52 Discharge Problem: Anemia Qualifiers: Anemia type: due to chronic kidney disease Chronic kidney disease stage: on chronic dialysis Qualified Code(s): N18.6 - End stage renal disease The scribe's documentation has been prepared under my direction and personally reviewed by me in its entirety. I confirm that the note above accurately reflects all work, treatment, procedures, and medical decision making performed by me.
--- NOTE | 2019-06-07 01:56 | Emergency Department Note ---
ED Visit Note ED Physician Sign Out Note: 33 yr old dialysis patient with history of anemia, chf, HTN, with multiple recent ED visits and clear non-compliance with her dialysis regimen. She is unsure when she was last dialyzed. Furthermore she notes that she is having a heavy period the last few days. She is chronically unwell appearing by exam, pale, and somnolent. She has crackles all lung snow though sating mid 90s on RA. She was signed out to me pending 1 Unit PRBC transfusion with planned discharge. Review of her chart makes clear she continues to skip dialysis. When talking to her I suspect she has no plans on going to Dialysis Saturday either. As she is already in pulmonary edema which does appear modestly worse than a few days ago, we are giving her fluids with PRBC and her worsening renal function I asked her Hospitalist group to evaluate her. I did discuss case with Dr Esteban of [facility] who knows patient well. After discussion with her she does feel it would be indicated to bring patient in to Hospital here tonight, they will get dialysis during day tomorrow. Tremaine Allred MD : Anemia Qualifiers: Anemia type: due to chronic kidney disease Chronic kidney disease stage: on chronic dialysis Qualified Code(s): N18.6 - End stage renal disease
[2019-06-07] MEDS ORDERED: SODIUM BICARB 8.4% INJ 50 MEQ/50 ML SYR IV STA (02:05)
[2019-06-07] MEDS ORDERED: INSULIN HUMAN REGULAR PER UNIT 10 UNITS in SYRINGE 0 ML IV STA (02:05)
[2019-06-07] MEDS ORDERED: DEXTROSE 50% 50 ML SYRINGE IV ONE (02:05)
[2019-06-07] MEDS ORDERED: NovoLIN-R INSULIN PER UNIT CHARGE IV STA (02:18)
[2019-06-07] MEDS ORDERED: NovoLIN-R INSULIN PER UNIT CHARGE ONE (02:20)
[2019-06-07] MEDS ORDERED: TRAMADOL HCL 50 MG TABLET ONE (02:56)
[2019-06-07] MEDS: TRAMADOL HCL 50 MG TABLET PO PRN ×3 (02:59→22:38)
--- NOTE | 2019-06-07 03:11 | History & Physical Report ---
Date of Service June 07, 2019 Assessment & Plan (1) SOB (shortness of breath): Multifactorial : Symptomatic anemia, acute on chronic anemia, hemoglobin drop from baseline secondary to anovulatory uterine bleed Pulmonary congestion, hx ESRD on HD, hx noncompliance, hx FSGS sp failed renal transplantation Hyperkalemia, AGMA secondary to ESRD hypertension, elevated secondary to medication noncompliance Chest pain likely secondary to above troponin elevation secondary to uncontrolled BP , kidney dysfunction ESRD on PD, DM2, diet controlled, well-controlled as of recent hemoglobin A1c of 5.1 last month mood disorder, at baseline ongoing tobacco abuse PCU Transfuse PRBC to maintain hemoglobin greater than 7 Nephrology consult RE dialysis management (ER provider already in touch with Dr. Esteban.) Sodium bicarb, IV insulin for patient's hyperkalemia, recheck potassium level Facilitate home BP meds, may need dose titration Trend troponin Judicious narcotic use given possible secondary gain given frequent ER visits/noncompliance with home regimen. Gynecology consult RE severe anovulatory uterine bleeding causing significant anemia (Case discussed with Dr. Montero who recommends 14-day course of Aygestin.) ISS BG goal 140-180 Nicotine patch PRN DVT prophylaxis. SCDs RE bleed causing significant anemia Full code History of Present Illness Chief Complaint: Shortness of breath, vaginal bleeding Primary Care Provider: Adolph Aldridge MD History obtained from patient and records. Medical history significant for hypertension, ESRD on PD, history of FSGS status post failed renal transplantation, DM2, diet controlled, mood disorder, history of umbilical hernia, chronic anemia (baseline hemoglobin of 7-9), history of migraine, ongoing tobacco abuse. Recent confinement 2 weeks ago for CHF, hypertensive urgency. Patient transitioned to hemodialysis (MWF) from peritoneal dialysis since discharge. Patient was at the ER on 3 other occasions in the past week for shortness of breath symptoms. Patient missed dialysis session 2 days ago. 3 days ago patient noted excessive vaginal bleeding described as dark jellylike globs without pain. Has never happened before as per patient. Patient had her regular menstrual period first week of the month for about 5 days. Unusual for her to have out of cycle bleeding within the same month as per patient. Has consumed 1 box of pads the last 3 days from vaginal bleeding. Patient noted worsening shortness of breath and substernal achy discomfort. Claims to be compliant with home meds. At the ER, globin noted to be 6.4. 1 unit packed RBC transfused at the emergency room. Medical History as above March 2019 pelvic ultrasound showed complex ovarian cyst right and uterine fibroid Surgical History : Vascular procedures, section, cystoscopy, knee surgery, eye surgery, BTL, renal biopsy, kidney transplant Family History : SLE, Crohn's disease, high blood pressure, depression Personal/Social history : Few cigarettes a day, no EtOH intake Allergies Allergies Allergy/AdvReac Type Severity Reaction Status Date / Time cefaclor Allergy Intermediate Rash Verified 06/06/19 22:05 amoxicillin AdvReac Mild VOMITING Verified 06/06/19 22:05 clavulanic acid AdvReac Mild VOMITING Verified 06/06/19 22:05 Home Medications Home Medications Medication Instructions Recorded Confirmed Type albuterol sulfate [Ventolin HFA] 2 puff INHALATION QID PRN 05/30/18 06/06/19 History calcium acetate 2,668 mg PO DIRECTED 05/30/18 06/06/19 History calcium acetate 3,335 mg PO TIDM 05/30/18 06/06/19 History sertraline [Zoloft] 50 mg PO QAM 05/30/18 06/06/19 History sumatriptan succinate [Imitrex] 50 mg PO DIRECTED PRN MDD 100 05/30/18 06/06/19 History MG/24 HOURS loratadine 10 mg PO HS PRN 07/30/18 06/06/19 History mirtazapine [Remeron] 30 mg PO HS 10/08/18 06/06/19 History amlodipine [Norvasc] 10 mg PO QAM 11/03/18 06/06/19 History cinacalcet [Sensipar] 30 mg PO QPM 11/03/18 06/06/19 History gabapentin [Neurontin] 800 mg PO HS 11/26/18 06/06/19 History calcium acetate 1,334 mg PO DIRECTED 01/24/19 06/06/19 History gabapentin [Neurontin] 400 mg PO DIRECTED 01/24/19 06/06/19 History famotidine [Pepcid] 40 mg PO DAILY 04/21/19 06/06/19 History sevelamer carbonate [Renvela] 1,600 mg PO TIDM 04/21/19 06/06/19 History acetaminophen [Tylenol Extra 1,000 mg PO Q6H PRN 05/23/19 06/06/19 History Strength] carvedilol [Coreg] 25 mg PO BID 06/06/19 06/06/19 History Past Med/Surg History Medical History Fistula of artery (Chronic) Diastolic CHF (Chronic) "echo 04/18/17 - EF 60-65%, grade II diastolic dysfunction" FSGS (focal segmental glomerulosclerosis) (Chronic) DM2 (diabetes mellitus, type 2) (Chronic) HTN (hypertension) (Chronic) CKD (chronic kidney disease) stage V requiring chronic dialysis (Chronic) Peritoneal dialysis catheter in place (Chronic) Dependence on peritoneal dialysis (Acute) Depression (Chronic) Surgical History H/O knee surgery (Resolved) H/O: (Resolved) H/O tubal ligation (Resolved) H/O eye surgery (Resolved) H/O section (Resolved) History of cholecystectomy (Resolved) H/O hernia repair (Resolved) Family History Grandmother Hx of CABG Mother Diabetes Father Crohn's disease Social History Preferred Language: Kiswahili Communication Ability: Effective Attendant [facility]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 Beliefs That Will Affect Care: None marital status: Current Living Situation: Family and Significant Other Current Living Situation Comment: [employer] current occupational status: employed Other Information That Helps Us Care for You: No Feels Safe at Home: Yes Safety Concerns: Feels Safe At This Time Smoking Status: Current some day smoker Tobacco Type: cigarettes ; Cigarettes Per Day: 2 ; Do You Dip or Chew Tobacco: No ; Second Hand Exposure: No ; Tobacco Cessation Education Requested by Patient: No Hx Alcohol Use: Yes Alcohol type: hard liquor Alcohol Intake Frequency Comment: q3 months Hx Substance Use: No Review of Systems Review of Systems: As per HPI, all 10 systems reviewed, all other ROS negative Physical Exam Physical Exam: GENERAL: Comfortable, obese, no respiratory distress, seated in the crosslegged position on the stretcher SKIN: Sallow , warm HEENT: Pale palpebral conjunctivae, no ptosis, dry buccal mucosa NECK : Supple, short neck, no tenderness CHEST : CTA, no tenderness HEART : RRR, no obvious murmurs ABDOMEN: distention, nontender exam : Deferred EXTREMITIES : Minimal LE swelling/tenderness, no other conspicuous deformities noted NEUROLOGIC : Coherent, no facial asymmetry, no other gross focality Results & Data Vital Signs (Past 12 Hours) Vital Signs Temp Pulse Pulse Resp BP BP Pulse Ox 06/07/19 03:00 82 16 159/106 H 99 06/07/19 02:41 36.5 C 82 16 166/110 H 98 06/07/19 02:11 37.0 C 81 15 175/113 H 96 06/07/19 01:56 37.0 C 83 16 175/111 H 95 06/07/19 01:55 37.0 C 82 16 174/111 H 95 06/07/19 01:39 37.0 C 83 16 170/111 H 95 06/07/19 01:06 85 18 183/109 H 95 06/06/19 23:05 90 18 190/120 H 100 06/06/19 21:32 37.1 C 93 H 20 154/122 H 98 Laboratory Results Laboratory Results WBC 6.41 K/uL (4.8-10.8) 06/06/19 22:34 RBC 2.01 M/uL (4.2-5.4) L 06/06/19 22:34 Hgb 6.5 g/dL (12.0-16.0) L* 06/06/19 22:34 Hct 19.4 % (37-47) L* 06/06/19 22:34 MCV 96.5 fL (80-100) 06/06/19 22:34 MCH 32.3 pg (25-34) 06/06/19 22:34 MCHC 33.5 g/dL (32-36) 06/06/19 22:34 RDW Std Deviation 53.3 fL (36.4-46.3) H 06/06/19 22:34 RDW Coeff of Laith 15.1 % (11.5-14.5) H 06/06/19 22:34 Plt Count 135 K/uL (130-400) 06/06/19 22:34 MPV 9.4 fL (7.4-10.4) 06/06/19 22:34 Immature Gran % (Auto) 0.2 % 06/06/19 22:34 Neut % (Auto) 72.3 % 06/06/19 22:34 Lymph % (Auto) 12.5 % 06/06/19 22:34 [place] % (Auto) 5.5 % 06/06/19 22:34 Eos % (Auto) 9.0 % 06/06/19 22:34 Baso % (Auto) 0.5 % 06/06/19 22:34 Immature Gran # (Auto) 0.01 K/uL (0.00-0.02) 06/06/19 22:34 Neut # (Auto) 4.64 K/uL (1.4-6.5) 06/06/19 22:34 Lymph # (Auto) 0.80 K/uL (1.2-3.4) L 06/06/19 22:34 [place] # (Auto) 0.35 K/uL (0.11-0.59) 06/06/19 22:34 Eos # (Auto) 0.58 K/uL (0-0.5) H 06/06/19 22:34 Baso # (Auto) 0.03 K/uL (0-0.2) 06/06/19 22:34 Poikilocytosis Present 06/06/19 22:34 PT 10.9 Seconds (9.0-12.0) 06/06/19 22:34 INR 1.1 (0.9-1.1) 06/06/19 22:34 APTT < 20.0 Seconds (21.0-31.0) L 06/06/19:34 PTT Ratio < 0.8 06/06/19 22:34 Sodium 136 mmol/L (136-145) 06/06/19 22:34 Potassium 5.3 mmol/L (3.5-5.1) H 06/06/19 22:34 Chloride 105 mmol/L (98-107) 06/06/19 22:34 Carbon Dioxide 16 mmol/L (21-32) L 06/06/19 22:34 Anion Gap 15.0 (3-11) H 06/06/19 22:34 BUN 109 mg/dl (7-18) H 06/06/19 22:34 Creatinine 19.40 mg/dl (0.6-1.2) H* D 06/06/19 22:34 Est Cr Clr Drug Dosing 5.0 ml/min 06/06/19 22:34 Est GFR ( Amer) 2.4 06/06/19 22:34 Est GFR (Non-Af Amer) 2.1 06/06/19 22:34 BUN/Creatinine Ratio 5.8 (10-20) L 06/06/19 22:34 Glucose 92 mg/dl (70-99) 06/06/19 22:34 Calcium 7.9 mg/dl (8.5-10.1) L 06/06/19 22:34 Magnesium 2.6 mg/dl (1.8-2.4) H 06/06/19 22:34 Total Bilirubin 0.4 mg/dl (0.2-1) 06/06/19 22:34 AST 18 U/L (15-37) 06/06/19 22:34 ALT 20 U/L (12-78) 06/06/19 22:34 Alkaline Phosphatase 117 U/L (45-117) 06/06/19 22:34 Troponin I 0.160 ng/ml (0-0.045) H* 06/06/19 22:34 Total Protein 6.7 gm/dl (6.4-8.2) 06/06/19 22:34 Albumin 2.8 gm/dl (3.4-5.0) L 06/06/19 22:34 Globulin 3.9 gm/dl (2.5-4.0) 06/06/19 22:34 Albumin/Globulin Ratio 0.7 (0.9-2) L 06/06/19 22:34 HCG, Qual Negative (Negative) 06/06/19 22:34 Blood Type A Positive 06/07/19 00:13 Antibody Screen NEGATIVE 06/07/19 00:13 Crossmatch See Detail 06/07/19 00:13 Diagnostic Findings Chest x-ray : 1. Cardiomegaly with pulmonary edema. 2. Trace pleural effusions. EKG as per my interpretation : Rate 95, NSR, normal axis, T wave inversion lateral leads
[2019-06-07] MEDS ORDERED: PROMETHAZINE HCL 12.5 MG in SODIUM CHLORIDE 0.9% 50 ML IV PRN (04:19)
[2019-06-07] MEDS ORDERED: NITROGLYCERIN SL 0.4 MG/TAB TAB SL PRN (04:19)
[2019-06-07] MEDS ORDERED: GLUCOSE 10 TABS/TUBE PO PRN (04:19)
[2019-06-07] MEDS ORDERED: DEXTROSE 50% 50 ML SYRINGE IV PRN (04:19)
[2019-06-07] MEDS ORDERED: GLUCAGON FOR INJ 1 MG VIAL SQ PRN (04:19)
[2019-06-07] MEDS ORDERED: GLUCOSE 40% GEL 15 GM TUBE PO PRN (04:19)
[2019-06-07] MEDS ORDERED: CALCIUM ACETATE 667 MG CAP PO PRN ×2 (04:19)
[2019-06-07] MEDS ORDERED: CARBOHYDRATES FOR HYPOGLYCEMIA PO PRN (04:19)
[2019-06-07] MEDS: carvediloL 25 MG TAB PO SCH ×2 (05:11→21:54)
[2019-06-07] MEDS: NORETHINDRONE 5 MG TAB PO SCH (05:12)
[2019-06-07] MEDS: AMLODIPINE BESYLATE 5 MG TAB PO SCH (05:12)
[2019-06-07] MEDS ORDERED: INFLUENZA VIRUS QUAD VACCINE 0.5 ML SYR IM ONE (06:00)
[2019-06-07] MEDS ORDERED: INFLUENZA ADMINISTRATION CHARGE ONE (06:00)
[2019-06-07 07:01] LABS: Basophils # (auto) 0.03 K/uL (0-0.2); Basophils % (auto) 0.6 %; Eosinophils % (auto) 10.7 %; Hematocrit (blood only) 22.1 % (37-47); Hemoglobin 7.4 g/dL (12.0-16.0); Immature Granulocytes # (auto) 0.01 K/uL (0.00-0.02); Immature Granulocytes % (auto) 0.2 %; Mean Corpuscular Hgb Conc 33.5 g/dL (32-36); Mean Corpuscular Volume 95.7 fL (80-100); Mean Platelet Volume 9.6 fL (7.4-10.4); Monocytes # (auto) 0.29 K/uL (0.11-0.59); Monocytes % (auto) 6.2 %; Neutrophils # (auto) 3.14 K/uL (1.4-6.5); Neutrophils % (auto) 67.3 %; Platelet Count 110 K/uL (130-400); RDW Coefficient of Variation 15.4 % (11.5-14.5); RDW Standard Deviation 53.8 fL (36.4-46.3); Red Blood Count 2.31 M/uL (4.2-5.4); White Blood Count 4.67 K/uL (4.8-10.8)
[2019-06-07 07:32] LABS: Ovalocytes 1+
[2019-06-07 07:54] LABS: BUN Creatinine Ratio 5.5 (10-20); Calcium 7.5 mg/dl (8.5-10.1); Creatinine Clr Calc Pharmacy 5.1 ml/min; Est GFR (African American) 2.4; Est GFR (Non-African American) 2.1; Potassium 4.8 mmol/L (3.5-5.1); Troponin I 0.156 ng/ml (0-0.045)
[2019-06-07] MEDS: CALCIUM ACETATE 667 MG CAP PO SCH ×3 (08:39→18:36)
[2019-06-07] MEDS: SERTRALINE HCL 50 MG TABLET PO SCH (08:39)
[2019-06-07] MEDS: LORATADINE 10 MG TAB PO PRN (08:39)
[2019-06-07] MEDS: SEVELAMER HCL 800 MG TABLET PO SCH ×3 (08:39→18:37)
[2019-06-07] MEDS: GABAPENTIN 400 MG CAP PO SCH ×2 (08:40→12:36)
[2019-06-07] MEDS: FAMOTIDINE 20 MG TAB PO SCH (08:40)
[2019-06-07] MEDS ORDERED: EPOETIN ALFA 20,000 UNITS/ML VIAL IV ONE (08:41)
[2019-06-07] MEDS ORDERED: SODIUM CHLORIDE 0.9% 1000ML 1,000 ML IV PRN (08:41)
[2019-06-07] MEDS ORDERED: HEPARIN SOD (PORCINE) 1000 UNIT/ML 10 ML VIAL IV ONE (08:41)
[2019-06-07] MEDS: INSULIN ASPART 100 UNITS/ML 3 ML PEN SC SCH ×4 (08:50→21:48)
[2019-06-07 12:28] LABS: Hematocrit (blood only) 23.4 % (37-47); Hemoglobin 7.7 g/dL (12.0-16.0)
--- NOTE | 2019-06-07 12:39 | Progress Note ---
Date of Service PATIENT SERVICE TECHNICIAN PST Consult pt seen and examined pt discussed with Nurse and Dr Haro Agrees with plan and recommendation Plan Continue with Aygestin 10mq QD x 14 days will dictate disch June 07, 2019 Results & Data Vital Signs (Past 12 Hours) Vital Signs Temp Pulse Pulse Resp BP BP Pulse Ox 06/07/19 11:35 168/110 H 06/07/19 10:56 36.5 C 70 22 192/116 H 100 06/07/19 09:58 73 06/07/19 07:04 36.9 C 68 24 151/89 H 96 06/07/19 05:31 36.9 C 80 14 175/112 H 94 06/07/19 05:30 36.9 C 50 L 14 175/112 H 94 06/07/19 04:41 36.9 C 83 16 185/120 H 95 06/07/19 04:21 36.9 C 87 18 190/125 H 98 06/07/19 03:52 83 16 167/109 H 97 06/07/19 03:41 36.6 C 83 16 167/109 H 97 06/07/19 03:00 82 16 159/106 H 99 06/07/19 02:41 36.5 C 82 16 166/110 H 98 06/07/19 02:11 37.0 C 81 15 175/113 H 96 06/07/19 01:56 37.0 C 83 16 175/111 H 95 06/07/19 01:55 37.0 C 82 16 174/111 H 95 06/07/19 01:39 37.0 C 83 16 170/111 H 95 06/07/19 01:06 85 18 183/109 H 95
--- NOTE | 2019-06-07 12:41 | Nephrology Consultation ---
Date of Consultation June 07, 2019 Assessment & Plan (1) ESRD (end stage renal disease) on dialysis: ESRD on MWF HD using AVF; nonadherent lately w/ her treatments (last one 05/27) -2.5 hrs HD today to stabilize -continue MWF txs > next tx tomorrow as INPT or OUTPT depending on clinical st atus; encourage her pls if d/c planned to come to HD -eventually will need to have PD cath removed >> outpt issue; has 06/17 appt for this Present on Admission?: Yes (2) Anemia in chronic illness: compounded by anovulatory uterine bleed; further recs per [facility] tick[facility], including new medication -had one unit pRBC and hgb improved -20K of epo today on tx worsened as well by missing HD and thereby missing epo Present on Admission?: Yes (3) Non-compliance: longstanding issue for this pt; nonadherent w/ dialysis treatments (last one 05/27/19) >> this leads to worsening anemia b/c misses epo injections; changed to in center HD / no longer PD d/t nonadherence w/ lab and clinic appts; encouragement offered; states she will be at OP dialysis as soon as d/c from clinic Present on Admission?: Yes (4) Pulmonary edema: this relates directly to nonadherence w/ dialysis regimen and has been ongoing on imaging on multiple [facility] encounters. she is not hypoxic; will do short dialysis today (weekend/off hours) to stabilize then very important she come to dialysis as rx'd -as below/above Present on Admission?: Yes (5) Diastolic CHF: relates directly to volume overload from missing dialysis treatments> for HD today; needs better adherence to HD txs; cont coreg, CCB, hydralazine >added 1.2 L FR and <2 gm Na diet; pt anuric Present on Admission?: Yes History of Present Illness Reason for Consultation: ESRD on dialysis Requesting Physician: Dr Hunt Attending Physician: Ambreen Lutz MD History of Present Illness 33 y/o F whom I'm asked to see for ESRD care after she presented to the ER last evening c/o sob, substernal chest discomfort, and c/o heavy vaginal bleeding 3 days prior to admission. PMH includes ESRD w/ recent care changes as below, HTN, FSGS s/p renal txplt which failed d/t noncompliance w/ meds, chronic anemia, ongoing tobacco abuse, migraines, mood disorder. On presentation yesterday, noted to have hgb 6.4; K in low 5's; CXR w/ plm edema but pt maintained her 02 sats on RA. She had been on PD until late last month when she was changed to in center hemodialysis d/t non adherence to medication recommendations, to appointments for dialysis care, and repeated presentations to [facility] for pRBC (due in part to not taking meds/doing home dialysis). Since change to [facility] hemodialysis, pt has not been coming to treatments. Her last and only treatment in center since modality change was 05/27/19. She had a unit of pRBC last evening which she tolerated w/o incident; hgb this am in mid 7s. obstetrics tech evaluated the pt this am >> recommended a medication. Allergies Allergy/AdvReac Type Severity Reaction Status Date / Time cefaclor Allergy Intermediate Rash Verified 06/06/19 22:05 amoxicillin AdvReac Mild VOMITING Verified 06/06/19 22:05 clavulanic acid AdvReac Mild VOMITING Verified 06/06/19 22:05 Home Medications Home Medications Medication Instructions Recorded Confirmed Type albuterol sulfate [Ventolin HFA] 2 puff INHALATION QID PRN 05/30/18 06/06/19 History calcium acetate 2,668 mg PO DIRECTED 05/30/18 06/06/19 History calcium acetate 3,335 mg PO TIDM 05/30/18 06/06/19 History sertraline [Zoloft] 50 mg PO QAM 05/30/18 06/06/19 History sumatriptan succinate [Imitrex] 50 mg PO DIRECTED PRN MDD 100 05/30/18 History MG/24 HOURS loratadine 10 mg PO HS PRN 07/30/18 06/06/19 History mirtazapine [Remeron] 30 mg PO HS 10/08/18 06/06/19 History amlodipine [Norvasc] 10 mg PO QAM 11/03/18 06/06/19 History cinacalcet [Sensipar] 30 mg PO QPM 11/03/18 06/06/19 History gabapentin [Neurontin] 800 mg PO HS 11/26/18 06/06/19 History calcium acetate 1,334 mg PO DIRECTED 01/24/19 06/06/19 History gabapentin [Neurontin] 400 mg PO DIRECTED 01/24/19 06/06/19 History famotidine [Pepcid] 40 mg PO DAILY 04/21/19 06/06/19 History sevelamer carbonate [Renvela] 1,600 mg PO TIDM 04/21/19 06/06/19 History acetaminophen [Tylenol Extra 1,000 mg PO Q6H PRN 05/23/19 06/06/19 History Strength] carvedilol [Coreg] 25 mg PO BID 06/06/19 06/06/19 History Patient History Medical History Fistula of artery (Chronic) Diastolic CHF (Chronic) "echo 04/18/17 - EF 60-65%, grade II diastolic dysfunction" FSGS (focal segmental glomerulosclerosis) (Chronic) DM2 (diabetes mellitus, type 2) (Chronic) HTN (hypertension) (Chronic) CKD (chronic kidney disease) stage V requiring chronic dialysis (Chronic) Peritoneal dialysis catheter in place (Chronic) Dependence on peritoneal dialysis (Acute) Depression (Chronic) Surgical History H/O knee surgery (Resolved) H/O: (Resolved) H/O tubal ligation (Resolved) H/O eye surgery (Resolved) H/O section (Resolved) History of cholecystectomy (Resolved) H/O hernia repair (Resolved) Family History Grandmother Hx of CABG Mother Diabetes Father Crohn's disease Social History Preferred Language: [place] Communication Ability: Effective Colorer Machine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 Beliefs That Will Affect Care: None marital status: Current Living Situation: Family and Significant Other Current Living Situation Comment: [employer] current occupational status: employed Other Information That Helps Us Care for You: No Feels Safe at Home: Yes Safety Concerns: Feels Safe At This Time Smoking Status: Current some day smoker Tobacco Type: cigarettes ; Cigarettes Per Day: 2 ; Do You Dip or Chew Tobacco: No ; Second Hand Exposure: No ; Tobacco Cessation Education Requested by Patient: No Hx Alcohol Use: Yes Alcohol type: hard liquor Alcohol Intake Frequency Comment: q3 months Hx Substance Use: No Review of Systems Constitutional: + fatigue, + weakness and + weight gain Eyes: no worsening vision Ear, Nose, Mouth, Throat: no dry mouth Respiratory: + dyspnea on exertion; no cough and no wheezing Cardiovascular: + chest pain with activity and + edema; no chest pain and no palpitations Gastrointestinal: + nausea (minimal po) and + diarrhea/loose stools (chronic stable); no vomiting and no change in bowel habits Genitourinary: anuric; + vaginal bleeding Musculoskeletal: no myalgia and no muscle weakness Integumentary: no rash Neurologic: no gait abnormality and no confusion Psychiatric: + depression Endocrine: + fatigue Hematologic / Lymphatic: + easy bleeding Physical Exam Constitutional: well developed, well nourished and + obese on RA nad Eyes: EOM intact bilaterally facial edema ENMT: Ears: no external ear abnormality Nose: no external nose abnormality Mouth: + dry oral mucous membranes Neck: no nuchal rigidity Respiratory: normal respiratory effort Auscultation: lungs clear to auscultation bilaterally and + diminished lung sounds lying flat on RA Cardiovascular: Rate/Rhythm: regular rate and regular rhythm Extremities: + AV fistula (+ t/b); no edema Gastrointestinal (Abdomen): Inspection/Auscultation: normal bowel sounds Percussion/Palpation: abdomen soft; abdomen nontender PD cath present/ exit site not examined Musculoskeletal: Extremities: strength 5/5 throughout Skin: no rashes, warm and dry Neurologic: sandy, fluent speech, no tremor Psychiatric: A+Ox3, euthymic affect (offers to show me pics of kids' activities) Results & Data Vital Signs (Past 12 Hours) Vital Signs Temp Pulse Pulse Resp BP BP Pulse Ox 06/07/19 11:35 168/110 H 06/07/19 10:56 36.5 C 70 22 192/116 H 100 06/07/19 09:58 73 06/07/19 07:04 36.9 C 68 24 151/89 H 96 06/07/19 05:31 36.9 C 80 14 175/112 H 94 06/07/19 05:30 36.9 C 50 L 14 175/112 H 94 06/07/19 04:41 36.9 C 83 16 185/120 H 95 06/07/19 04:21 36.9 C 87 18 190/125 H 98 06/07/19 03:52 83 16 167/109 H 97 06/07/19 03:41 36.6 C 83 16 167/109 H 97 06/07/19 03:00 82 16 159/106 H 99 06/07/19 02:41 36.5 C 82 16 166/110 H 98 06/07/19 02:11 37.0 C 81 15 175/113 H 96 06/07/19 01:56 37.0 C 83 16 175/111 H 95 06/07/19 01:55 37.0 C 82 16 174/111 H 95 06/07/19 01:39 37.0 C 83 16 170/111 H 95 06/07/19 01:06 85 18 183/109 H 95 Laboratory Results 06/07/19 12:19 06/07/19 06:49 Diagnostic Findings cxr Cardiac silhouette is enlarged, unchanged. Pulmonary vascular congestion with interstitial coarsening. No pneumothorax. Trace pleural effusions. No lobar airspace consolidation. IMPRESSION: 1. Cardiomegaly with pulmonary edema. 2. Trace pleural effusions. Pelvic u/s 04/23/19 The uterus measured 9 cm 1.2 cm anterior fundal fibroid.. The endometrial stripe measured 5 mm. The right ovary measured poorly seen. Complex heterogeneous structure right soft tissue pelvis measuring up to 5 cm. The right ovary potentially is adherent.. The left ovary measured 3.3 cm with normal vascular flow. There is no ultrasonographic evidence of ovarian torsion. It should be noted that ovarian torsion can be present with normal Doppler ultrasonographic findings. Small moderate free pelvic fluid within the cul-de-sac. IMPRESSION: 1. A limited visibility of the right ovary which potentially is adherent and/or involved with a complex 5 x 4 cm collection/lesion within the right right soft tissue pelvis. 2. Small uterine fundal fibroid. 3. Normal left ovary. CTabd/pelvis 05/23 FINDINGS: Imaged portions of the lower chest demonstrate cardiomegaly with trace pericardial fluid. There are trace bilateral pleural effusions. Interlobular septal thickening and groundglass opacities are noted within the lower lungs. A small amount of abdominal fluid is noted with a moderate amount of pelvic perito muna fluid. A peritoneal dialysis catheter terminates within the right lower quadrant. Attenuation of the fluid is slightly increased. There is no evidence for a bowel obstruction. Evaluation of the abdomen and pelvis is suboptimal as unenhanced examination. There is no biliary ductal dilatation status post cholecystectomy. Unenhanced images of the spleen, adrenal glands and pancreas are unremarkable. There is marked atrophy of the [place] kidneys. An atrophic calcified right lower quadrant allograft is noted. There is colonic diverticulosis without evidence for acute diverticulitis. Appendix is partially obscured but visualized portions are normal. A small fat and fluid containing umbilical hernia is similar to prior exam. No suspicious osseous lesions are present. IMPRESSION: 1. Moderate peritoneal fluid within the pelvis and small amount of peritoneal fluid within the abdomen. This represents peritoneal dialysate. Mild increased attenuation of this fluid is nonspecific but may be related to recent contrast- enhanced CT. A small amount of hemorrhage could appear similar but is considered less likely. 2. No significant change in a small fluid and fat-containing umbilical hernia. 3. No bowel obstruction. 4. Cardiomegaly with evidence for pulmonary edema. Trace bilateral pleural ef fusions. CTA Chest 05/23 No pulmonary emboli are identified although the segmental and subsegmental pulmonary arteries are suboptimally assessed due to respiratory motion. The heart is moderately enlarged. There is moderate coronary artery calcification. No thoracic aortic dissection is present. Central airways are patent. Interlobular septal thickening is noted. Extensive bilateral airspace opacities within the lungs are also noted. There are trace bilateral pleural effusions. No pneumothorax is present. Bony thorax is unremarkable. Small amount of perihepatic ascites is noted IMPRESSION: 1. No pulmonary emboli identified although segmental and subsegmental pulmonary arteries suboptimally assessed due to respiratory motion. 2. Interstitial pulmonary edema. In addition, extensive bilateral airspace opacities which favor alveolar edema however bilateral pneumonia could appear similar. 3. Trace bilateral pleural effusions. 4. Moderate cardiomegaly and coronary artery calcification. 5. Small amount of perihepatic ascites. (1) Diastolic CHF Heart failure chronicity: acute on chronic Qualified Code(s): I50.33 - Acute on chronic diastolic (congestive) heart failure (2) Pulmonary edema Chronicity: acute Qualified Code(s): J81.0 - Acute pulmonary edema
--- NOTE | 2019-06-07 14:53 | Hospitalist Progress Note ---
Date of Service June 07, 2019 Assessment & Plan (1) SOB (shortness of breath): Mostly related to pulmonary edema due to ESRD on PD vs Anemia CXR showed cardiomegaly with pulmonary edema. Nephrology on board Plan for HD today Continue Monitor today Symptomatic Anemia Possible related to anovulatory uterine bleeding Hemoglobin on admission 6.5 Received 1 unit PRBC continue Epogen during HD Repeat Hbg 7.7 Monitor CBC ESRD Plan for HD today Nephrology on board Missed HD on Saturday She said that she does not like HD because she is tired after HD Continue phoslo, sevelamer, sensipar Next HD otomorrow as per nephrology Anovulatory Uterine Bleeding Etiology unknown PSYCHOLOGICAL AIDE on board recommended to continue with Aygestin 10mq QD x 14 days Will need outpatient follow up with PSYCHOLOGICAL AIDE Elevated troponin Chronic elevated troponin Trop on admission 0.16, then trending down slightly to 0.15 EKG showed no ischemic changes Recently admitted 04/21- 04/25 with chest pain and underwent echocardiogram. She was also seen and evaluated by cardiology who recommended stress echo but unable to perform due to uncontrolled hypertension Stable HTN (hypertension) BP elevated Continue amlodipine 10mg and coreg increased to 25mg Will resume Enalapril 5mg BID in am Hydralazine IV PNR adding Monitor BP closely Prolonged QT interval: QTC 515 on admission Will monitor closely while on Zoloft Avoid QTC prolonging drugs Depression On zoloft, mirtazapine monitor QTC Stable DVT prophylaxis: No heparin subq due to low hemoglobin and vaginal bleed On SCD DVT px FULL CODE Subjective Pt was seen and examined Lying in bed with no distress Pt said that breathing stable now but if she starts to walk around, she develops SOB She said that the vaginal bleeding improves Denies any chest pain, palpitation, dizziness and SOB Physical Exam Physical Exam: General- No acute distress Head- atraumatic Eyes- PERRL, EOMI, ENT- oropharynx clear Neck- supple, no JVD Lungs- clear to auscultation Heart- regular rhythm; no murmur Abdomen- normal bowel sounds Extremities- no calf tenderness, no edema Neuro- alert, oriented x 3; PERRL, EOMI; no facial palsy; no dysarthria Skin- warm & dry Results & Data Vital Signs (Past 12 Hours) Vital Signs Temp Pulse Pulse Resp BP BP Pulse Ox 06/07/19 11:35 168/110 H 06/07/19 10:56 36.5 C 70 22 192/116 H 100 06/07/19 09:58 73 06/07/19 07:04 36.9 C 68 24 151/89 H 96 06/07/19 05:31 36.9 C 80 14 175/112 H 94 06/07/19 05:30 36.9 C 50 L 14 175/112 H 94 06/07/19 04:41 36.9 C 83 16 185/120 H 95 06/07/19 04:21 36.9 C 87 18 190/125 H 98 06/07/19 03:52 83 16 167/109 H 97 06/07/19 03:41 36.6 C 83 16 167/109 H 97 06/07/19 03:00 82 16 159/106 H 99
[2019-06-07] MEDS: HEPARIN SOD (PORCINE) 1000 UNIT/ML 10 ML VIAL IV SCH ×2 (16:49→16:50)
[2019-06-07] MEDS: HydrALAZINE HCL 20 MG/ML VIAL IV PRN (18:35)
[2019-06-07] MEDS ORDERED: MIRTAZAPINE TAB 15 MG TAB PO SCH (21:00)
[2019-06-07] MEDS ORDERED: GABAPENTIN 400 MG CAP PO SCH (21:00)
[2019-06-07] MEDS: ACETAMINOPHEN 325 MG TAB PO PRN (21:54)
[2019-06-08] MEDS: INSULIN ASPART 100 UNITS/ML 3 ML PEN SC SCH ×3 (08:48→18:34)
[2019-06-08] MEDS: GABAPENTIN 400 MG CAP PO SCH ×2 (08:49→15:51)
[2019-06-08] MEDS: NORETHINDRONE 5 MG TAB PO SCH (08:49)
[2019-06-08] MEDS: FAMOTIDINE 20 MG TAB PO SCH (08:49)
[2019-06-08] MEDS: LORATADINE 10 MG TAB PO PRN (08:49)
[2019-06-08] MEDS: CALCIUM ACETATE 667 MG CAP PO SCH ×3 (08:49→15:52)
[2019-06-08] MEDS: SEVELAMER HCL 800 MG TABLET PO SCH ×3 (08:50→15:53)
[2019-06-08] MEDS: AMLODIPINE BESYLATE 5 MG TAB PO SCH (08:50)
[2019-06-08] MEDS: carvediloL 25 MG TAB PO SCH (08:50)
[2019-06-08] MEDS: SERTRALINE HCL 50 MG TABLET PO SCH (08:50)
[2019-06-08] MEDS ORDERED: SODIUM CHLORIDE 0.9% 1000ML 1,000 ML IV PRN (09:08)
[2019-06-08] MEDS ORDERED: EPOETIN ALFA 10,000 UNITS/ML VIAL IV ONE (09:08)
[2019-06-08] MEDS ORDERED: HEPARIN SOD (PORCINE) 1000 UNIT/ML 10 ML VIAL IV SCH (10:30)
[2019-06-08] MEDS: HEPARIN SOD (PORCINE) 1000 UNIT/ML 10 ML VIAL IV SCH ×3 (11:40→13:53)
[2019-06-08] MEDS: ACETAMINOPHEN 325 MG TAB PO PRN (15:56)
[2019-06-08] MEDS ORDERED: ENALAPRIL MALEATE 5 MG TAB PO STA (16:12)
--- NOTE | 2019-06-08 18:00 | Hospitalist Progress Note ---
Date of Service June 08, 2019 Assessment & Plan (1) SOB (shortness of breath): Mostly related to pulmonary edema due to ESRD on PD vs Anemia CXR showed cardiomegaly with pulmonary edema. Nephrology on board Had HD done today Clinically stable Symptomatic Anemia Possible related to anovulatory uterine bleeding Hemoglobin on admission 6.5 Received 1 unit PRBC continue Epogen during HD Repeat Hbg 7.7 stable Monitor CBC outpatient ESRD Missed HD on Saturday Had HD today Nephrology on board Advised pt to be compliant with HD She said that she does not like HD because she is tired after HD Continue phoslo, sevelamer, sensipar Next HD tomorrow as per nephrology Anovulatory Uterine Bleeding Etiology unknown HEALTH CARE / MEDICAL JOB TITLES on board recommended to continue with Aygestin 10mq QD x 14 days Will need outpatient follow up with HEALTH CARE / MEDICAL JOB TITLES Elevated troponin Chronic elevated troponin Trop on admission 0.16, then trending down slightly to 0.15 EKG showed no ischemic changes Recently admitted 04/21- 04/25 with chest pain and underwent echocardiogram. She was also seen and evaluated by cardiology who recommended stress echo but unable to perform due to uncontrolled hypertension Stable HTN (hypertension) BP elevated Continue amlodipine 10mg and coreg increased to 25mg Continue Enalapril 5mg BID Hydralazine IV PNR adding Monitor BP closely Prolonged QT interval: QTC 515 on admission Will monitor closely while on Zoloft Avoid QTC prolonging drugs Depression On zoloft, mirtazapine monitor QTC Stable DVT prophylaxis: No heparin subq due to low hemoglobin and vaginal bleed On SCD DVT px FULL CODE Disposition Discharge home today Follow up with primary care provider Dr. 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 Subjective Pt was seen and examined Lying in bed with no distress Pt said that she feels much better She said that the vaginal bleeding is minimal She just had HD done this morning Denies any chest pain, palpitation, dizziness and SOB Physical Exam Physical Exam: General- No acute distress Head- atraumatic Eyes- PERRL, EOMI, ENT- oropharynx clear Neck- supple, no JVD Lungs- clear to auscultation Heart- regular rhythm; no murmur Abdomen- normal bowel sounds Extremities- no calf tenderness, no edema Neuro- alert, oriented x 3; PERRL, EOMI; no facial palsy; no dysarthria Skin- warm & dry Results & Data Vital Signs (Past 12 Hours) Vital Signs Temp Pulse Pulse Resp BP BP Pulse Ox 06/08/19 15:08 36.7 C 76 20 168/106 H 93 06/08/19 13:40 69 169/91 H 06/08/19 13:20 70 166/93 H 06/08/19 13:00 69 156/90 H 06/08/19 12:40 68 159/86 H 06/08/19 12:20 69 155/80 H 06/08/19 12:00 72 153/91 H 06/08/19 11:40 71 158/85 H 06/08/19 11:20 71 150/90 H 06/08/19 11:00 69 149/84 H 06/08/19 10:45 72 141/83 H 06/08/19 10:35 37.1 C 06/08/19 09:54 72 06/08/19 07:13 36.9 C 76 20 155/93 H 94
--- NOTE | 2019-06-08 18:04 | Nephrology Progress Note ---
Date of Service June 08, 2019 Assessment & Plan (1) ESRD (end stage renal disease) on dialysis: ESRD on MWF HD using AVF; nonadherent lately w/ her treatments (last one 05/27) -She had 2.5 hrs HD yesterday. She will be dialysed today for 3.5hrs and UF 3litres -continue MWF txs OUTPT. -eventually will need to have PD cath removed >> outpt issue; has 06/17 appt for this (2) Anemia in chronic illness: compounded by anovulatory uterine bleed; further recs per clinical care leader, including new medication -had one unit pRBC and hgb improved -Got 20K of epo yesterday on tx worsened as well by missing HD and thereby missing epo (3) Non-compliance: longstanding issue for this pt; nonadherent w/ dialysis treatments (last one 05/27/19) >> this leads to worsening anemia b/c misses epo injections; changed to in center HD / no longer PD d/t nonadherence w/ lab and clinic appts; encouragement offered; states she will be at OP dialysis as soon as d/c from clinic (4) Pulmonary edema: this relates directly to nonadherence w/ dialysis regimen and has been ongoing on imaging on multiple [facility] encounters. she is not hypoxic; will attempt 3 litre UF today (5) Diastolic CHF: relates directly to volume overload from missing dialysis treatments> for HD today; needs better adherence to HD txs; cont coreg, CCB, hydralazine >added 1.2 L FR and <2 gm Na diet; pt anuric Subjective ESRD patient seen in f/u. No SOB. She feels swollen. She had HD yesterday. BP is high Review of Systems Review of Systems: All systems reviewed & are unremarkable except as noted in HPI & below Physical Exam Physical Exam: General exam: Appears comfortable, no acute distress HEENT: Pupils are equal and reactive to light Neck: No JVD, neck is supple trachea is midline Respiratory system: Clear breath sounds bilaterally. Gastrointestinal: Abdomen is soft, non distended, non tender, bowel sounds are present CVS: Regular rate and rhythm. No murmurs, rubs or gallops Musculoskeletal: No joint or muscle tenderness Extremities: Non tender, no edema, peripheral pulses are present Neuro: Oriented, no tremors, no focal neurological deficits Skin: No rashes Access: AVF with good bruit Results & Data Vital Signs (Past 12 Hours) Vital Signs Temp Pulse Pulse Resp BP BP Pulse Ox 06/08/19 15:08 36.7 C 76 20 168/106 H 93 06/08/19 13:40 69 169/91 H 06/08/19 13:20 70 166/93 H 06/08/19 13:00 69 156/90 H 06/08/19 12:40 68 159/86 H 06/08/19 12:20 69 155/80 H 06/08/19 12:00 72 153/91 H 06/08/19 11:40 71 158/85 H 06/08/19 11:20 71 150/90 H 06/08/19 11:00 69 149/84 H 06/08/19 10:45 72 141/83 H 06/08/19 10:35 37.1 C 06/08/19 09:54 72 06/08/19 07:13 36.9 C 76 20 155/93 H 94 Laboratory Results Laboratory Results - last 24 hr 06/07/19 06/08/19 06/08/19 20:25 07:12 15:07 POC Glucose 147 H 112 H 102 H 06/08/19 16:22 POC Glucose 132 H (1) Pulmonary edema Chronicity: acute Qualified Code(s): J81.0 - Acute pulmonary edema (2) Diastolic CHF Heart failure chronicity: acute on chronic Qualified Code(s): I50.33 - Acute on chronic diastolic (congestive) heart failure
[2019-06-08] MEDS: HydrALAZINE HCL 20 MG/ML VIAL IV PRN (18:20)
--- NOTE | 2019-06-09 07:53 | Discharge Summary ---
Date of Service June 08, 2019 Admission HPI Per Admitting Provider History obtained from patient and records. Medical history significant for hypertension, ESRD on PD, history of FSGS status post failed renal transplantation, DM2, diet controlled, mood disorder, history of umbilical hernia, chronic anemia (baseline hemoglobin of 7-9), history of migraine, ongoing tobacco abuse. Recent confinement 2 weeks ago for CHF, hypertensive urgency. Patient transitioned to hemodialysis (MWF) from peritoneal dialysis since discharge. Patient was at the ER on 3 other occasions in the past week for shortness of breath symptoms. Patient missed dialysis session 2 days ago. 3 days ago patient noted excessive vaginal bleeding described as dark jellylike globs without pain. Has never happened before as per patient. Patient had her regular menstrual period first week of the month for about 5 days. Unusual for her to have out of cycle bleeding within the same month as per patient. Has consumed 1 box of pads the last 3 days from vaginal bleeding. Patient noted worsening shortness of breath and substernal achy discomfort. Claims to be compliant with home meds. At the ER, globin noted to be 6.4. 1 unit packed RBC transfused at the emergency room. Medical History as above March 2019 pelvic ultrasound showed complex ovarian cyst right and uterine fibroid Surgical History : Vascular procedures, section, cystoscopy, knee surgery, eye surgery, BTL, renal biopsy, kidney transplant Family History : SLE, Crohn's disease, high blood pressure, depression Personal/Social history : Few cigarettes a day, no EtOH intake Allergies Admission Exam Per Admitting Provider GENERAL: Comfortable, obese, no respiratory distress, seated in the crosslegged position on the stretcher SKIN: Sallow , warm HEENT: Pale palpebral conjunctivae, no ptosis, dry buccal mucosa NECK : Supple, short neck, no tenderness CHEST : CTA, no tenderness HEART : RRR, no obvious murmurs ABDOMEN: distention, nontender exam : Deferred EXTREMITIES : Minimal LE swelling/tenderness, no other conspicuous deformities noted NEUROLOGIC : Coherent, no facial asymmetry, no other gross focality Principal Diagnosis Shortness of Breath End Stage renal disease on dialysis Elevated troponin Anemia Hypertension Discharge Exam General- No acute distress Head- atraumatic Eyes- PERRL, EOMI, ENT- oropharynx clear Neck- supple, no JVD Lungs- clear to auscultation Heart- regular rhythm; no murmur Abdomen- normal bowel sounds Extremities- no calf tenderness, no edema Neuro- alert, oriented x 3; PERRL, EOMI; no facial palsy; no dysarthria Skin- warm & dry Discharge Data Allergies Allergy/AdvReac Type Severity Reaction Status Date / Time cefaclor Allergy Intermediate Rash Verified 06/06/19 22:05 amoxicillin AdvReac Mild VOMITING Verified 06/06/19 22:05 clavulanic acid AdvReac Mild VOMITING Verified 06/06/19 22:05 Consultations 06/07/19 02:42 ED Decision to Admit Stat 06/07/19 03:35 Consult Gynecology Routine 06/07/19 04:19 Consult Nephrology Routine Ordered Studies XR chest 1V portable HISTORY: 33 years-old Female Dyspnea acute shortness of breath COMPARISON: Chest radiograph 06/03/2019 TECHNIQUE: Portable AP view of the chest FINDINGS: Cardiac silhouette is enlarged, unchanged. Pulmonary vascular congestion with interstitial coarsening. No pneumothorax. Trace pleural effusions. No lobar airspace consolidation. IMPRESSION: 1. Cardiomegaly with pulmonary edema. 2. Trace pleural effusions. The above report was generated using voice recognition software. It may contain grammatical, syntax or spelling errors. Electronically signed by: Alejandro Copeland M.D. 06/06/2019 10:23 PM Dictated: 06/06/192221 Transcribed: 06/06/192221 Hospital Course (1) SOB (shortness of breath): Mostly related to pulmonary edema due to ESRD on PD vs Anemia CXR showed cardiomegaly with pulmonary edema. Nephrology on board Had HD done today Clinically stable Symptomatic Anemia Possible related to anovulatory uterine bleeding Hemoglobin on admission 6.5 Received 1 unit PRBC continue Epogen during HD Repeat Hbg 7.7 stable Monitor CBC outpatient ESRD Missed HD on Saturday Had HD today Nephrology on board Advised pt to be compliant with HD She said that she does not like HD because she is tired after HD Continue phoslo, sevelamer, sensipar Next HD tomorrow as per nephrology Anovulatory Uterine Bleeding Etiology unknown COMMUNITY LIVING SPECIALIST on board recommended to continue with Aygestin 10mq QD x 14 days Will need outpatient follow up with COMMUNITY LIVING SPECIALIST Elevated troponin Chronic elevated troponin Trop on admission 0.16, then trending down slightly to 0.15 EKG showed no ischemic changes Recently admitted 04/21- 04/25 with chest pain and underwent echocardiogram. She was also seen and evaluated by cardiology who recommended stress echo but unable to perform due to uncontrolled hypertension Stable HTN (hypertension) BP elevated Continue amlodipine 10mg and coreg increased to 25mg Continue Enalapril 5mg BID Hydralazine IV PNR adding Monitor BP closely Prolonged QT interval: QTC 515 on admission Will monitor closely while on Zoloft Avoid QTC prolonging drugs Depression On zoloft, mirtazapine monitor QTC Stable DVT prophylaxis: No heparin subq due to low hemoglobin and vaginal bleed On SCD DVT px FULL CODE Disposition Discharge home today Follow up with primary care provider Dr. 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 Total Time Total Time Spent Total Time Spent (In Minutes): 35 minutes Total Time Includes: Examination of the Patient, Discharge Planning, Medication Reconciliation, Communication With Other Providers and Other Discharge Plan Discharge Items Patient Disposition: Home - Self-Care Reason For Visit: SYMPTOMATIC ANEMIA, PULM CONGESTION Discharge Diagnosis: Shortness of Breath End Stage renal disease on dialysis Elevated troponin Anemia Hypertension Activity: Resume your previous activity Activity Comment: As tolerated Non-emergency contact: Primary Care Provider Call non-emergency contact if: you have any medication questions Follow-up/Referrals: Adolph Aldridge MD [Primary Care Provider] - Diet: Dialysis Renal Addtl Attending Provider Instructions: Follow up with your primary care provider Dr. Aldridge on 06/11 @ 10:45 AM Follow up with Gynecology Dr. Montero (Please call to schedule for the follow up appointment) Follow up with your nephrology Your next hemodialysis schedule for tomorrow morning at [facility] Monitor your blood pressure Follow a low salt diet Check CBC in 1 week to monitor your hemoglobin Your physician will need to monitor QTC on your EKG while on Zoloft Advised patient not to drive, specially with any children in the car until clear by her physician. Pending Studies at Discharge: No Visit Report Forms: Smoking Cessation Stand-Alone Forms: [email or web address], Opioid Pain Management, Work/School Release (Inpt) Medications and DC Order Prescriptions: New norethindrone acetate 5 mg Tablet 10 mg PO DAILY 12 Days Qty: 24 RF: 0 Continued loratadine 10 mg tablet 10 mg PO HS PRN (Reason: Allergy Symptoms) RF: 0 cinacalcet [Sensipar] 30 mg tablet 30 mg PO QPM RF: 0 amlodipine [Norvasc] 5 mg tablet 10 mg PO QAM RF: 0 carvedilol [Coreg] 25 mg tablet 25 mg PO BID RF: 0 sumatriptan succinate [Imitrex] 50 mg tablet 50 mg PO DIRECTED MDD 100 MG/24 HOURS PRN (Reason: Migraine Headache) RF: 0 albuterol sulfate [Ventolin HFA] 90 mcg/actuation HFA aerosol inhaler 2 puff Inhalation QID PRN (Reason: Shortness Of Breath Or Wheezing) RF: 0 sertraline [Zoloft] 50 mg tablet 50 mg PO QAM RF: 0 calcium acetate 667 mg capsule 3,335 mg PO TIDM RF: 0 calcium acetate 667 mg capsule 2,668 mg PO DIRECTED RF: 0 mirtazapine [Remeron] 30 mg Tablet 30 mg PO HS RF: 0 gabapentin [Neurontin] 400 mg capsule 800 mg PO HS RF: 0 calcium acetate 667 mg capsule 1,334 mg PO DIRECTED RF: 0 gabapentin [Neurontin] 400 mg Capsule 400 mg PO DIRECTED RF: 0 sevelamer carbonate [Renvela] 800 mg tablet 1,600 mg PO TIDM RF: 0 famotidine [Pepcid] 40 mg Tablet 40 mg PO DAILY RF: 0 acetaminophen [Tylenol Extra Strength] 500 mg Tablet 1,000 mg PO Q6H PRN (Reason: Pain) RF: 0 Discharge Orders: Discharge Order (Routine); Ordered 06/08/19 Ordered By: Ambreen Lutz Admission Data Admit Date/Time: 06/07/19 03:15 Attending Provider: Ambreen Lutz Admit Provider: Gilles Cunningham Primary Care Provider: Adolph Aldridge Other Providers: Gilles Cunningham ; Ernie Montero ; Leah Nieves Other Interventions: Discharge Summary Assessment (RN) Last Done: 06/08/19 19:13 DC Date/Time DO NOT enter until pt leaves facility: 06/08/19 20:10
== END 2019-06-08 20:10 | disposition home or self-care (01) | DRG 811 ==
LOC: ED 21:25 → 2E 06-07 03:15

== ENCOUNTER 2019-08-06 16:12 | Inpatient (IN) ==
[2019-08-06] MEDS ORDERED: PROCHLORPERAZINE MALEATE 5 MG TAB PO ONE (16:44)
[2019-08-06] MEDS ORDERED: AMLODIPINE BESYLATE 5 MG TAB PO ONE (16:48)
[2019-08-06] MEDS ORDERED: carvediloL 25 MG TAB PO ONE (16:48)
--- NOTE | 2019-08-06 16:48 | Emergency Department Note ---
Entered by Cinthia Stark acting as a scribe for Baljit Lewis DO History of Present Illness General Chief complaint: Mental Health Evaluation Stated complaint: HYPERTENSIVE Time Seen by Provider: 08/06/19 16:27 Source: patient History of Present Illness Onset (ago): week(s) (several) Location: head (general) Pain Consistency: + intermittent Quality: + other (mental health evaluation for medication noncompliance and skipped dialysis sessions) Associated symptoms: + chest pain and + headaches The patient is a 33 year old female who presents to the Emergency Room for a mental health evaluation following the patient intermittently skipping her dialysis and not taking her medications beginning several weeks ago. The patient states dialysis sometimes makes her sick, gives her headaches, and prevents her from enjoying time with her kids on Fridays. She notes five days ago was the first dialysis she has gone to in the two weeks prior. She notes she missed dialysis again yesterday. She states she wants to get help. The patient reports chest pain with deep breaths. Home Medications Home Medications Medication Instructions Recorded Confirmed Type albuterol sulfate [Ventolin HFA] 2 puff INHALATION QID PRN 05/30/18 08/05/19 History calcium acetate 2,668 mg PO DIRECTED 05/30/18 08/05/19 History calcium acetate 3,335 mg PO TIDM 05/30/18 08/05/19 History sumatriptan succinate [Imitrex] 50 mg PO DIRECTED PRN MDD 100 05/30/18 08/05/19 History MG/24 HOURS amlodipine [Norvasc] 10 mg PO QAM 11/03/18 08/05/19 History gabapentin [Neurontin] 800 mg PO HS 11/26/18 08/05/19 History calcium acetate 1,334 mg PO DIRECTED 01/24/19 08/05/19 History gabapentin [Neurontin] 400 mg PO DIRECTED 01/24/19 08/05/19 History famotidine [Pepcid] 40 mg PO QAM 04/21/19 08/05/19 History sevelamer carbonate [Renvela] 1,600 mg PO TIDM 04/21/19 08/05/19 History carvedilol [Coreg] 25 mg PO BID 06/06/19 08/05/19 History sertraline [Zoloft] 100 mg PO QAM 06/12/19 08/05/19 History trazodone 50 mg PO HS 06/12/19 08/05/19 History loratadine [Claritin] 10 mg PO DAILY PRN 06/17/19 08/05/19 History cinacalcet [Sensipar] 60 mg PO QDD 07/22/19 08/05/19 History prochlorperazine maleate 10 mg PO QID PRN 07/26/19 08/05/19 History [Compazine] tramadol 25 - 50 mg PO Q8H PRN #10 tab 07/29/19 08/05/19 Rx Allergies Allergy/AdvReac Type Severity Reaction Status Date / Time cefaclor Allergy Intermediate Rash Verified 08/05/19 23:10 amoxicillin AdvReac Mild VOMITING Verified 08/05/19 23:10 clavulanic acid AdvReac Mild VOMITING Verified 08/05/19 23:10 Past Med/Surg History Medical History Anemia Anxiety and depression Asthma "BEEN A WHILE" SINCE USING LAST RESCUE INHALER Bipolar disorder CKD (chronic kidney disease) stage V requiring chronic dialysis (Chronic) Depression (Chronic) Dialysis patient SATURDAY/SAT/SATURDAY AT [facility] DM2 (diabetes mellitus, type 2) (Chronic) CONTROLLED WITH DIET AND EXERCISE Fistula LEFT ARM FSGS (focal segmental glomerulosclerosis) (Chronic) DX INITIALLY 2012 (CAUSING ESRD 2012) GERD (gastroesophageal reflux disease) HTN (hypertension) (Chronic) Migraine Peripheral neuropathy Peritoneal dialysis catheter in place Prolonged QT interval Restless leg syndrome Surgical History H/O eye surgery (Resolved) LASER SURGERY H/O hernia repair (Resolved) ABDOMINAL WALL H/O knee surgery (Resolved) LEFT KNEE X 2 H/O tubal ligation (Resolved) H/O: (Resolved) X 2 History of cardiac cath 2016 NO STENTS History of cholecystectomy (Resolved) History of colonoscopy History of tooth extraction Kidney transplant recipient 2013 AT [facility] Family History Grandmother Hx of CABG Mother Diabetes Father Crohn's disease Grandfather (Maternal) Diabetes Uncle Diabetes Social History Preferred Language: Cameroonian Communication Ability: Effective Air Brake Man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 Beliefs That Will Affect Care: None marital status: Current Living Situation: Family and Significant Other Current Living Situation Comment: [facility] current occupational status: employed Feels Safe at Home: Yes Smoking Status: Current every day smoker Tobacco Type: cigarettes ; Cigarettes Per Day: 2 ; Second Hand Exposure: No ; Hx Alcohol Use: Yes Alcohol type: hard liquor Alcohol Intake Frequency Comment: q3 months Hx Substance Use: No Review of Systems See HPI for pertinent positives & negatives. and A total of 10 systems reviewed and were otherwise negative Physical Exam Vital Signs Vital Signs - 24 hr 08/06/19 16:25 08/06/19 18:03 08/06/19 18:23 Temperature 36.8 C Temperature Source Oral Pulse Rate 90 Pulse Rate [Right Finger] 92 H 88 Pulse Rhythm Regular Pulse Rhythm [Right Finger] Regular Regular Pulse Strength Normal Pulse Strength [Right Finger] Normal Normal Respiratory Rate 16 21 16 Respiratory Effort / Characteristics Non-Labored Non-Labored Non-Labored Respiratory Depth Normal Normal Normal Respiratory Pattern Regular Regular Regular Blood Pressure 194/106 H Blood Pressure [Right Arm] 198/117 H 191/111 H Blood Pressure Mean 135 Blood Pressure Mean [Right Arm] 144 137 Blood Pressure Position Sitting Blood Pressure Position [Right Arm] Sitting Sitting Pulse Oximetry 95 95 94 Oxygen Delivery Method Room Air Room Air Room Air Sepsis Recent Fever Within 48 Hours No Sepsis Action Taken by Nursing No Action Required 08/06/19 19:14 08/06/19 20:26 Temperature Temperature Source Pulse Rate Pulse Rate [Right Finger] 79 78 Pulse Rhythm Pulse Rhythm [Right Finger] Pulse Strength Pulse Strength [Right Finger] Respiratory Rate 20 15 Respiratory Effort / Characteristics Non-Labored Spontaneous Non-Labored Spontaneous Respiratory Depth Normal Normal Respiratory Pattern Regular Regular Blood Pressure Blood Pressure [Right Arm] 152/90 H 156/98 H Blood Pressure Mean Blood Pressure Mean [Right Arm] 110 117 Blood Pressure Position Blood Pressure Position [Right Arm] Sitting Sitting Pulse Oximetry 95 97 Oxygen Delivery Method Room Air Room Air Sepsis Recent Fever Within 48 Hours Sepsis Action Taken by Nursing CONSTITUTIONAL/VITAL SIGNS: Reviewed / noted above. GENERAL: Non-toxic in appearance. INTEGUMENTARY: Warm, dry, and [place]. HEAD: Normocephalic. EYES: without scleral icterus or trauma. ENT/OROPHARYNX: clear and moist. LYMPHADENOPATHY/NECK: Is supple without lymphadenopathy or meningismus. RESPIRATORY: Lungs are slightly diminished. CARDIOVASCULAR: Regular rate and rhythm. GI/ABDOMEN: Soft and nontender. No organomegaly or pulsatile mass. No rebound or guarding. Normal bowel sounds. EXTREMITIES: Warm and well perfused. BACK: No CVA tenderness. NEUROLOGICAL: Intact without focal deficits. PSYCHIATRIC: normal affect. MUSCULOSKELETAL: Normally developed with good muscle tone. Course Course 1630: Past medical records reviewed. The patient was evaluated in room A03. A complete history and physical exam was performed. 2015: Upon reevaluation, I discussed findings and results with the patient. She verbalized agreement of the treatment plan. I spoke with Dr. Morgan of the [facility] Hospitalist Service. The patient will be evaluated for further management and care. Administered Medications Discontinued Medications Amlodipine Besylate (Norvasc) 10 mg PO NOW ONE Stop: 08/06/19 16:49 Last Admin: 08/06/19 17:22 Dose: 10 mg Documented by: [id number] Carvedilol (Coreg) 25 mg PO NOW ONE Stop: 08/06/19 16:49 Last Admin: 08/06/19 17:53 Dose: 25 mg Documented by: [id number] Hydralazine HCl (Apresoline) 25 mg PO NOW STA Stop: 08/06/19 16:51 Last Admin: 08/06/19 17:22 Dose: 25 mg Documented by: [id number] Prochlorperazine (Compazine) 5 mg PO NOW ONE Stop: 08/06/19 16:45 Last Admin: 08/06/19 16:48 Dose: 5 mg Documented by: [id number] Critical Care Time Critical Care Time: Yes Total Critical Care Time: 30 I have personally spent 30 minutes of critical care time in the direct manage ment of this patient. This includes bedside care, interpretation of diagnostic studies, and testing, discussion with consultants, patient, and family members, and other required patient management activities. This 30 minutes is in excess of all separately billable procedures. Medical Decision Making Differential Diagnosis Differential diagnoses considered include mood disorder, infection, hypoglycemia, electrolyte abnormalities, cardiac sources, intracerebral event, toxicologic, neurologic, as well as others. Medical Records Attestation: I reviewed the patient's medical records. Home Medications Current Medication List: was personally reviewed by me Laboratory Data Attestation: I reviewed the patient's lab results. Result diagrams: 08/06/19 19:30 08/06/19 17:12 Lab Results 08/06/19 08/06/19 08/06/19 Range/Units 17:12 17:12 17:12 WBC Cancelled RBC Cancelled Hgb Cancelled Hct Cancelled MCV Cancelled MCH Cancelled MCHC Cancelled RDW Std Deviation Cancelled RDW Coeff of Laith Cancelled Plt Count Cancelled MPV Cancelled Immature Gran % (Auto) Cancelled Neut % (Auto) Cancelled Lymph % (Auto) Cancelled Holmes % (Auto) Cancelled Eos % (Auto) Cancelled Baso % (Auto) Cancelled Immature Gran # (Auto) Cancelled Neut # (Auto) Cancelled Lymph # (Auto) Cancelled Holmes # (Auto) Cancelled Eos # (Auto) Cancelled Baso # (Auto) Cancelled Absolute Nucleated RBC Cancelled Nucleated RBC % (auto) Cancelled Neutrophils % (Manual) Cancelled Band Neutrophils % Cancelled Lymphocytes % (Manual) Cancelled Prolymphocyte % Cancelled Reactive Lymphs % (Man) Cancelled Monocytes % (Manual) Cancelled Eosinophils % (Manual) Cancelled Basophils % (Manual) Cancelled Metamyelocytes % (Man) Cancelled Myelocytes % (Man) Cancelled Promyelocytes % (Man) Cancelled Blast Cells % (Manual) Cancelled Plasma Cell % (Manual) Cancelled Other Cells % Cancelled Nucleated RBC % Cancelled Neutrophils # (Manual) Cancelled Band Neutrophils # Cancelled Total Absolute Neuts Cancelled Lymphocytes # (Manual) Cancelled Prolymphocyte # Cancelled Reactive Lymphs # Cancelled Total Abs Lymphocytes Cancelled Monocytes # (Manual) Cancelled Eosinophils # (Manual) Cancelled Basophils # (Manual) Cancelled Metamyelocytes # (Man) Cancelled Myelocytes # (Manual) Cancelled Promyelocytes # (Man) Cancelled Blast Cells # (Man) Cancelled Plasma Cell # (Manual) Cancelled Other Cells # Cancelled Nucleated RBCs # (Man) Cancelled Hypersegmented Neuts Cancelled Hyposegmented Neuts Cancelled Hypogranular Neuts Cancelled Large Granular Lymphs Cancelled # Lrg Granular Lymphs Cancelled Hairy Cells Cancelled Smudge Cells Cancelled Toxic Granulation Cancelled Toxic Vacuolation Cancelled Dohle Bodies Cancelled Brenda Rods Cancelled Platelet Estimate Cancelled Hypogranular Platelets Cancelled Clumped Platelets Cancelled Giant Platelets Cancelled Platelet Satelliting Cancelled RBC Morphology Cancelled Polychromasia Cancelled Hypochromasia Cancelled Poikilocytosis Cancelled Basophilic Stippling Cancelled Anisocytosis Cancelled Microcytosis Cancelled Macrocytosis Cancelled Spherocytes Cancelled Pappenheimer Bodies Cancelled Sickle Cells Cancelled Target Cells Cancelled Tear Drop Cells Cancelled Ovalocytes Cancelled Stomatocytes Cancelled Tatum-Nunn Bodies Cancelled Echinocytes Cancelled Acanthocytes (Spur) Cancelled Rouleaux Cancelled RBC Agglutinates Cancelled Schistocytes Cancelled RBC Morph Comment Cancelled Sezary Cell Cancelled Sodium 137 (136-145) mmol/L Potassium 4.5 (3.5-5.1) mmol/L Chloride 102 (98-107) mmol/L Carbon Dioxide 17 L (21-32) mmol/L Anion Gap 18.0 H (3-11) BUN 113 H (7-18) mg/dl Creatinine 20.90 H* D (0.6-1.2) mg/dl Est Cr Clr Drug Dosing 4.6 ml/min Est GFR ( Amer) 2.2 Est GFR (Non-Af Amer) 1.9 BUN/Creatinine Ratio 5.4 L (10-20) Glucose 118 H (70-99) mg/dl Calcium 8.4 L (8.5-10.1) mg/dl Total Bilirubin 0.5 (0.2-1) mg/dl AST 30 (15-37) U/L ALT 30 (12-78) U/L Alkaline Phosphatase 128 H (45-117) U/L Total Protein 7.0 (6.4-8.2) gm/dl Albumin 3.2 L (3.4-5.0) gm/dl Globulin 3.8 (2.5-4.0) gm/dl Albumin/Globulin Ratio 0.8 L (0.9-2) TSH 3.440 (0.300-4.500) uIu/ml HCG, Qual (Negative) Salicylates 1.8 L (2.8-20) mg/dl Acetaminophen < 2 L (10-30) ug/ml Ethyl Alcohol mg/dL (0-3) mg/dl 08/06/19 08/06/19 08/06/19 Range/Units 17:12 17:12 19:30 WBC 8.71 RBC 2.18 L Hgb 6.5 L* Hct 20.0 L* MCV 91.7 MCH 29.8 MCHC 32.5 RDW Std Deviation 52.0 H RDW Coeff of Laith 15.5 H Plt Count 72 L MPV 10.5 H Immature Gran % (Auto) 1.5 Neut % (Auto) 77.2 Lymph % (Auto) 8.2 Holmes % (Auto) 5.9 Eos % (Auto) 6.7 Baso % (Auto) 0.5 Immature Gran # (Auto) 0.13 H Neut # (Auto) 6.74 H Lymph # (Auto) 0.71 L Holmes # (Auto) 0.51 Eos # (Auto) 0.58 H Baso # (Auto) 0.04 Absolute Nucleated RBC Nucleated RBC % (auto) Neutrophils % (Manual) Band Neutrophils % Lymphocytes % (Manual) Prolymphocyte % Reactive Lymphs % (Man) Monocytes % (Manual) Eosinophils % (Manual) Basophils % (Manual) Metamyelocytes % (Man) Myelocytes % (Man) Promyelocytes % (Man) Blast Cells % (Manual) Plasma Cell % (Manual) Other Cells % Nucleated RBC % Neutrophils # (Manual) Band Neutrophils # Total Absolute Neuts Lymphocytes # (Manual) Prolymphocyte # Reactive Lymphs # Total Abs Lymphocytes Monocytes # (Manual) Eosinophils # (Manual) Basophils # (Manual) Metamyelocytes # (Man) Myelocytes # (Manual) Promyelocytes # (Man) Blast Cells # (Man) Plasma Cell # (Manual) Other Cells # Nucleated RBCs # (Man) Hypersegmented Neuts Hyposegmented Neuts Hypogranular Neuts Large Granular Lymphs # Lrg Granular Lymphs Hairy Cells Smudge Cells Toxic Granulation Toxic Vacuolation Dohle Bodies Brenda Rods Platelet Estimate Decreased L Hypogranular Platelets Clumped Platelets Giant Platelets Platelet Satelliting RBC Morphology Unremarkable Polychromasia Hypochromasia Poikilocytosis Basophilic Stippling Anisocytosis Microcytosis Macrocytosis Spherocytes Pappenheimer Bodies Sickle Cells Target Cells Tear Drop Cells Ovalocytes Stomatocytes Tatum-Nunn Bodies Echinocytes Acanthocytes (Spur) Rouleaux RBC Agglutinates Schistocytes RBC Morph Comment Sezary Cell Sodium (136-145) mmol/L Potassium (3.5-5.1) mmol/L Chloride (98-107) mmol/L Carbon Dioxide (21-32) mmol/L Anion Gap (3-11) BUN (7-18) mg/dl Creatinine (0.6-1.2) mg/dl Est Cr Clr Drug Dosing ml/min Est GFR ( Amer) Est GFR (Non-Af Amer) BUN/Creatinine Ratio (10-20) Glucose (70-99) mg/dl Calcium (8.5-10.1) mg/dl Total Bilirubin (0.2-1) mg/dl AST (15-37) U/L ALT (12-78) U/L Alkaline Phosphatase (45-117) U/L Total Protein (6.4-8.2) gm/dl Albumin (3.4-5.0) gm/dl Globulin (2.5-4.0) gm/dl Albumin/Globulin Ratio (0.9-2) TSH (0.300-4.500) uIu/ml HCG, Qual Negative (Negative) Salicylates (2.8-20) mg/dl Acetaminophen (10-30) ug/ml Ethyl Alcohol mg/dL < 3.0 (0-3) mg/dl ECG Data Attestation: I personally reviewed and interpreted this ECG as follows: Indication: + chest pain Rate (beats per minute): 90 Rhythm: + normal sinus ECG ST segments: no ST elevation ECG Findings: no PACs and no PVCs Blood Pressure Blood Pressure Findings: Elevated blood pressure Blood Pressure Disposition: further management by hospitalist RONIT Narrative This is a 33-year-old female who presents to the ED with a chief complaint of depression and suicidal ideation. Her thoughts are such that she wants to discontinue her medical treatment for dialysis and stop taking her medication so that she would . She states that she talk to can help and was referred here. The patient states that she really does not want to but is looking for help with her depression and her medical issues. The patient was seen by myself in the hospital yesterday for missing dialysis. Her evaluation at that time was unremarkable. She states that she last had dialysis on the sixth or seventh when she was transferred here to [facility]. Yesterday she had told me that she just missed yesterday. Her physical exam today reveals hypertension. Blood pressures 194/106. The patient's lungs are mostly clear but diminished. She is in no respiratory distress. Her oxygen saturations are 95% on room air. She is afebrile. Vital signs are otherwise stable. Other than some depression and being tearful when she speaks about her not wanting to continue new medications or dialysis, she does not have any other complaints and has no other findings on exam. The patient's hemoglobin is 6.5. Her BUN is 54. Creatinine is 12. The patient's EKG shows a normal sinus rhythm. Electrolytes are okay. The patient received p.o. Compazine as well as p.o. amlodipine and p.o. Coreg. She also received p.o. hydralazine. Her blood pressure improved to 156/98. It was much higher than this when she came in. The patient will be seen by the hospitalist service as she is anemic and will require blood transfusion. 1 unit of packed RBCs was ordered for the patient. Mental health services can see the patient while she is in the hospital. I think she is safe for dialysis tomorrow if necessary. Impression & Plan Anemia, Depression, Chronic renal failure Discharge Plan Visit Data Chief Complaint: Mental Health Evaluation Stated Complaint: HYPERTENSIVE ED Provider: Baljit Lewis Discharge Problem: Anemia, Depression, Chronic renal failure Patient Disposition: Being Evaluated by Hospitalist Forms Stand Alone Forms: [facility], Suicide Prevention Resources Prescriptions Prescriptions: No Action amlodipine [Norvasc] 5 mg tablet 10 mg PO QAM RF: 0 carvedilol [Coreg] 25 mg tablet 25 mg PO BID RF: 0 loratadine [Claritin] 10 mg Tablet 10 mg PO DAILY PRN (Reason: Allergy Symptoms) RF: 0 prochlorperazine maleate [Compazine] 10 mg tablet 10 mg PO QID PRN (Reason: Nausea And Vomiting) RF: 0 sumatriptan succinate [Imitrex] 50 mg tablet 50 mg PO DIRECTED MDD 100 MG/24 HOURS PRN (Reason: Migraine Headache) RF: 0 albuterol sulfate [Ventolin HFA] 90 mcg/actuation HFA aerosol inhaler 2 puff Inhalation QID PRN (Reason: Shortness Of Breath Or Wheezing) RF: 0 calcium acetate 667 mg capsule 3,335 mg PO TIDM RF: 0 calcium acetate 667 mg capsule 2,668 mg PO DIRECTED RF: 0 gabapentin [Neurontin] 400 mg capsule 800 mg PO HS RF: 0 calcium acetate 667 mg capsule 1,334 mg PO DIRECTED RF: 0 gabapentin [Neurontin] 400 mg Capsule 400 mg PO DIRECTED RF: 0 sevelamer carbonate [Renvela] 800 mg tablet 1,600 mg PO TIDM RF: 0 famotidine [Pepcid] 40 mg Tablet 40 mg PO QAM RF: 0 trazodone 50 mg tablet 50 mg PO HS RF: 0 sertraline [Zoloft] 100 mg tablet 100 mg PO QAM RF: 0 cinacalcet [Sensipar] 60 mg tablet 60 mg PO QDD RF: 0 tramadol 50 mg tablet 25 - 50 mg PO Q8H PRN (Reason: pain) Qty: 10 RF: 0 Referrals Referrals: PCP,NO [Physician] - Discharge Problem: Anemia Qualifiers: Anemia type: unspecified type Qualified Code(s): D64.9 - Anemia, unspecified Depression Qualifiers: Depression Type: unspecified Qualified Code(s): F32.9 - Major depressive disorder, single episode, unspecified Chronic renal failure Qualifiers: Chronic kidney disease stage: stage 5 Qualified Code(s): N18.5 - Chronic kidney disease, stage 5 The scribe's documentation has been prepared under my direction and personally reviewed by me in its entirety. I confirm that the note above accurately re flects all work, treatment, procedures, and medical decision making performed by me.
[2019-08-06 17:51] LABS: Pregnancy Test, Serum Negative (Negative)
[2019-08-06 18:04] LABS: Albumin Level 3.2 gm/dl (3.4-5.0); Calcium 8.4 mg/dl (8.5-10.1); Potassium 4.5 mmol/L (3.5-5.1)
[2019-08-06 18:13] LABS: Albumin Globulin Ratio 0.8 (0.9-2); Bilirubin,Total 0.5 mg/dl (0.2-1); Globulin 3.8 gm/dl (2.5-4.0); Thyroid Stimulating Hormone 3.44 uIu/ml (0.300-4.500)
[2019-08-06 18:18] LABS: Acetaminophen < 2 ug/ml (10-30); Salicylate 1.8 mg/dl (2.8-20)
[2019-08-06 20:04] LABS: BUN Creatinine Ratio 5.4 (10-20); Creatinine Clr Calc Pharmacy 4.6 ml/min; Est GFR (African American) 2.2; Est GFR (Non-African American) 1.9
[2019-08-06 20:07] LABS: Hemoglobin 6.5 g/dL (12.0-16.0); Mean Corpuscular Hemoglobin 29.8 pg (25-34); Mean Corpuscular Hgb Conc 32.5 g/dL (32-36); Mean Corpuscular Volume 91.7 fL (80-100); Mean Platelet Volume 10.5 fL (7.4-10.4); Platelet Count 72 K/uL (130-400); RDW Coefficient of Variation 15.5 % (11.5-14.5); Red Blood Count 2.18 M/uL (4.2-5.4); White Blood Count 8.71 K/uL (4.8-10.8)
[2019-08-06 20:08] LABS: Basophils # (auto) 0.04 K/uL (0-0.2); Basophils % (auto) 0.5 %; Eosinophils # (auto) 0.58 K/uL (0-0.5); Eosinophils % (auto) 6.7 %; Immature Granulocytes # (auto) 0.13 K/uL (0.00-0.02); Immature Granulocytes % (auto) 1.5 %; Lymphocytes # (auto) 0.71 K/uL (1.2-3.4); Lymphocytes % (auto) 8.2 %; Monocytes # (auto) 0.51 K/uL (0.11-0.59); Monocytes % (auto) 5.9 %; Neutrophils # (auto) 6.74 K/uL (1.4-6.5); Neutrophils % (auto) 77.2 %; Platelet Estimate Decreased (Normal); RBC Morphology Unremarkable
[2019-08-06] MEDS ORDERED: SODIUM CHLORIDE 0.9% 250 ML IV PRN (20:29)
[2019-08-06] MEDS ORDERED: TRAMADOL HCL 50 MG TABLET PO STA (20:29)
[2019-08-06] MEDS ORDERED: NITROGLYCERIN SL 0.4 MG/TAB TAB SL PRN (22:30)
[2019-08-06] MEDS ORDERED: LORATADINE 10 MG TAB PO PRN (22:30)
[2019-08-06] MEDS ORDERED: CALCIUM ACETATE 667 MG CAP PO PRN ×2 (22:30)
[2019-08-06] MEDS ORDERED: TRAZODONE HCL 50 MG TAB PO SCH (22:30)
[2019-08-06] MEDS ORDERED: ALBUTEROL HFA 8 GM INHALER INH PRN (22:30)
[2019-08-06] MEDS ORDERED: ACETAMINOPHEN 325 MG TAB PO PRN (22:30)
[2019-08-06] MEDS ORDERED: SUMAtriptan succinate 50 MG TAB PO PRN (22:30)
[2019-08-06] MEDS: carvediloL 25 MG TAB PO SCH (23:31)
[2019-08-06] MEDS: GABAPENTIN 400 MG CAP PO SCH (23:31)
--- NOTE | 2019-08-06 23:31 | History and Physical Report ---
DATE OF ADMISSION: 08/06/2019 CHIEF COMPLAINT: Missing dialysis, shortness of breath on exertion, hypertensive urgency and depression. HISTORY OF PRESENT ILLNESS: This is a 33-year-old female with past medical history significant for end-stage renal disease, used to be on peritoneal dialysis, currently on hemodialysis, history of FSGS, status post failed renal transplantation, type 2 diabetes diet controlled, mood disorder, history of umbilical hernia, chronic anemia, baseline hemoglobin of 7-9, history of migraines, ongoing tobacco abuse who presents because of missed dialysis, depression and shortness of breath on exertion. The patient states since last about 2 weeks, she is not going to dialysis because she does not like the feeling of the dialysis. After dialysis, she is feeling worn out. She also does not like the peritoneal dialysis because on the peritoneal dialysis she has to dialysis every night and she has 3 kids at home and is she is not available to them. But says also she does not like the hemodialysis because of worn out feeling.And she also has some left-sided rotator cuff pain and because of all these things, she just gave up and she is not also taking blood pressure medications and missing her dialysis. She came here to [facility] last Saturday and she was transferred to [place] for dialysis and she states had couple of hours of Dialysis. Has some headaches. Denies any blurred vision. No earache. No runny nose. No sore throat. Appetite is not good. No cough. No fever. No chills. No difficulty swallowing. She is not sleeping good. Her primary care doctor has increased Zoloft from 50 mg to 100 mg and stopped Remeron and she is on trazodone but change in medication is still not helping her sleep. All this things are bothering her and she is feeling depressed. Denies any chest pain. No shortness of breath. No cough. No nausea. No abdominal pain. She is having diarrhea since last 2 weeks. No blood in the stools or black stools. Does not make any urine. No rash anywhere. She has had vaginal bleeding in May, but that has stopped now. She has a followup appointment with [facility] in August. ALLERGIES: AUGMENTIN CEFACLOR CEPHALOSPORINS. PAST MEDICAL HISTORY: As mentioned above. PAST SURGICAL HISTORY: Arteriovenous access, delivery, colonoscopy, left heart catheterization, cystoscopy, esophagogastroduodenoscopy with endoscopic ultrasound, tunneled catheter insertion, CT-guided needle biopsy, knee arthroscopy, laparoscopic cholecystectomy, LASIK surgery, ligation of oviducts, removal of the tunneled catheter, renal biopsy percutaneous, transplantation of kidney in 2013. MEDICATIONS: Currently, the patient states she is on albuterol 2 puffs inhalation q.i.d. p.r.n., amlodipine 10 mg p.o. daily a.m., calcium acetate 5capsules with meals, calcium acetate 4 capsules with snacks, calcium acetate 2 capsules with dark soda, Coreg 25 mg p.o. b.i.d., Sensipar 60 mg p.o. daily with dinner, Pepcid 40 mg p.o. q.a.m., gabapentin 800 mg at bedtime, 400mg p.o. at bedtime, loratadine 10 mg p.o. daily p.r.n., Zoloft 100 mg p.o. a.m., Renvela 1600 mg p.o. t.i.d. with meals, Imitrex 50 mg p.r.n. and trazodone 50 mg p.o. at bedtime. FAMILY HISTORY: Significant for mother had diabetes,hyperthyroidism. Brother had heart disorder and at age of 19 months. Father has mental disorder and Crohn disease. SOCIAL HISTORY: Lives with fiance and 3 kids. Smokes half pack a day for last 11 years. No alcohol use. No drug use. REVIEW OF SYMPTOMS: As per HPI. Rest of review of systems negative. PHYSICAL EXAMINATION: GENERAL: The patient is obese, not in acute distress. VITAL SIGNS: Temperature 36.8, pulse 70, respiratory rate 15, blood pressure 156/98 and oxygen 97% on room air. HEENT: No pallor. No icterus. Pupils are equal, round and reactive to light. NECK: No JVD. No neck masses. No carotid bruits. CARDIOVASCULAR: S1, S2 heard. Regular rate and rhythm. No murmur. No gallop. RESPIRATORY SYSTEM: Normal AP diameter. No accessory muscle use. No wheezing. No crackles. ABDOMEN: Soft. Bowel sounds present. Nontender. No distention. CENTRAL NERVOUS SYSTEM: Cranial nerves II through XII grossly intact. Nonfocal. EXTREMITIES: Mild pedal edema present. No erythema seen. LABORATORY DATA: WBC 8.7, hemoglobin 6.5, hematocrit 20 and platelets 72. Sodium 137, potassium 4.5, chloride 102, bicarbonate 17, BUN 113, creatinine 20, glucose 118, calcium 8.4, total bilirubin 0.5, AST 30, ALT 30 and alkaline phosphatase 128. Thyroid stimulating hormone 3.4. HCG negative. Salicylate 1.8. Acetaminophen less than 2. Alcohol less than 3. ELECTROCARDIOGRAM: Shows normal sinus rhythm with rate of 90, possible left atrial enlargement and prolonged QT at 526. ASSESSMENT AND PLAN: This is a 33-year-old female who presents with depression and missed dialysis, shortness of breath on exertion and elevated blood pressure. 1. Anemia. Hemoglobin 6.5 mostly from end-stage renal disease, missing dialysis, on Epogen shots. She has had vaginal bleeding in May, which has stopped now. Plan to give prbc with dialysis in am.Follow labs. 2. End-stage renal disease, on hemodialysis, _ on Saturday, Saturday and Saturday, but missed dialysis in last 2 weeks . Had couple of hours of dialysis last Saturday in [place] as per patient. Potassium seems to be okay. Creatinine is 20. Bicarbonate is 17. We will notify Nephrology. Monitor in the Med/Surg Tele. 3. Diet controlled diabetes. We will follow blood sugars. 4. Prolonged QT, on Zoloft and trazodone; avoid any other QT prolonging drugs, we will closely monitor, follow up electrocardiogram in a.m. 5. Depressions, missing dialysis, on Zoloft, recently increased to 100 mg by primary care physician. Remeron was stopped. We will consult Psychiatry in a.m. for further recommendations and adjustment of medications. 6. Sleep disorder, not able to sleep well. Family doctor is following and adjusting medications, but not working. We will await Psychiatry input . 7.Hx of recent vaginal bleeding which has stopped now, follow up with [facility] in August. 8. Hypertension, hypertensive urgency. She is not taking medications at home. Continue amlodipine 10 mg daily, Coreg, currently is on 25 mg p.o. b.i.d. which we will continue and monitor the blood pressure and adjust the medication. Received clonidine in the Emergency Room. We will monitor the blood pressure. 9. Shortness of breath, most likely secondary to missed dialysis and anemia. We will follow the chest x-ray. 10. Deep venous thrombosis prophylaxis, sequential compression devices for now. 11. Disposition: Closely monitor in the Med/Surg Tele. Level 1 full code. MTDD
[2019-08-07] MEDS ORDERED: HYDROmorphone INJ 0.5 MG/0.5 ML SYR IV STA (00:24)
[2019-08-07 05:22] LABS: Hematocrit (blood only) 22.3 % (37-47); Hemoglobin 7.4 g/dL (12.0-16.0); Mean Corpuscular Hemoglobin 30.8 pg (25-34); Mean Corpuscular Hgb Conc 33.2 g/dL (32-36); Mean Corpuscular Volume 92.9 fL (80-100); RDW Coefficient of Variation 15.4 % (11.5-14.5); RDW Standard Deviation 52.5 fL (36.4-46.3); White Blood Count 6.94 K/uL (4.8-10.8)
[2019-08-07 05:50] LABS: BUN Creatinine Ratio 5.4 (10-20); Creatinine Clr Calc Pharmacy 4.6 ml/min; Est GFR (African American) 2.1; Est GFR (Non-African American) 1.9; Magnesium 2.7 mg/dl (1.8-2.4); Potassium 4.5 mmol/L (3.5-5.1)
[2019-08-07 05:58] LABS: Mean Platelet Volume 8.8 fL (7.4-10.4); Platelet Count 94 K/uL (130-400)
[2019-08-07 06:01] LABS: Eosinophils # (auto) 0.63 K/uL (0-0.5); Eosinophils % (auto) 9.1 %; Immature Granulocytes # (auto) 0.02 K/uL (0.00-0.02); Immature Granulocytes % (auto) 0.3 %; Lymphocytes # (auto) 1.04 K/uL (1.2-3.4); Monocytes # (auto) 0.35 K/uL (0.11-0.59); Neutrophils % (auto) 70.6 %; RBC Morphology Unremarkable
--- NOTE | 2019-08-07 06:54 | XRay Report ---
XR chest 1V portable CLINICAL HISTORY: CONGESTION dyspnea COMPARISON STUDY: 08/05/2019 FINDINGS: Findings of mildly progressive component of pulmonary edema. Small left and minimal right e ffusion. IMPRESSION: Findings consistent with mildly progressive pulmonary edema. The above report was generated using voice recognition software. It may contain grammatical, syntax or spelling errors. Electronically signed by: Adolph Rizo M.D. 08/07/2019 6:52 AM
[2019-08-07] MEDS ORDERED: SODIUM CHLORIDE 0.9% 250 ML IV PRN (07:08)
[2019-08-07] MEDS: GABAPENTIN 400 MG CAP PO SCH ×3 (07:53→19:57)
[2019-08-07] MEDS: FAMOTIDINE 40 MG TABLET PO SCH (07:53)
[2019-08-07] MEDS: SERTRALINE HCL 100 MG TABLET PO SCH (07:53)
[2019-08-07] MEDS: CALCIUM ACETATE 667 MG CAP PO SCH ×3 (07:54→16:16)
[2019-08-07] MEDS: SEVELAMER HCL 800 MG TABLET PO SCH ×3 (07:55→16:16)
[2019-08-07] MEDS: AMLODIPINE BESYLATE 5 MG TAB PO SCH (07:59)
[2019-08-07] MEDS: carvediloL 25 MG TAB PO SCH (08:00)
[2019-08-07] MEDS: HYDROmorphone INJ 0.5 MG/0.5 ML SYR IV PRN (08:00)
[2019-08-07] MEDS ORDERED: HEPARIN SOD (PORCINE) 1000 UNIT/ML 10 ML VIAL IV ONE (08:10)
[2019-08-07] MEDS ORDERED: SODIUM CHLORIDE 0.9% 1000ML 1,000 ML IV PRN (08:10)
[2019-08-07] MEDS ORDERED: EPOETIN ALFA 20,000 UNITS/ML VIAL IV ONE (08:10)
--- NOTE | 2019-08-07 08:38 | Hospitalist Progress Note ---
Date of Service August 07, 2019 Assessment & Plan (1) ESRD (end stage renal disease) on dialysis: -This is a 33-year-old female who presents with depression and missed dialysis, shortness of breath on exertion and elevated blood pressure. -symptoms secondary to non adherence to outpatient dialysis treatment -nephrology plans to dialyze patient in hospital on 08/07/19 and 08/08/19 (2) Depression: -reason for missing dialysis as outpatient from depression -08/07/19: Patient seen at bedside. There is a 1 to 1 manager nursing. Patient has bucket in front of her. She feels nausea but no vomiting yet. Patient answers questions appropriately. She denies homicidal ideations. When asked about her mood and whether she has any suicidal ideations, patient replies that she has not tried to hurt herself directly but in a way she has been trying to hurt her own health by giving up on medical treatments (i.e. not going as needed to dialysis sessions as outpatient, not taking her sertraline medication). Reports these feelings going on for 1 month -inpatient psychiatry requested and patient agrees to be seen by inpatient psychiatry Sleep disorder -patient reported not able to sleep well. Family doctor is following and adjusting medications, but not working. await Psychiatry input Prolonged QTc on EKG -QTc intervals above 500 on EKGs -avoid potential QT prolonging drugs (3) HTN (hypertension): Hypertensive urgency on admission -She is not taking medications at home. Continue amlodipine 10 mg daily, Coreg, currently is on 25 mg p.o. b.i.d. which we will continue and monitor the blood pressure and adjust the medication. Received clonidine in the Emergency Room. -expect blood pressures to improve with dialysis Shortness of breath -most likely secondary to missed dialysis and anemia -breathing on room air Anemia from end stage renal disease -She has had vaginal bleeding in May, which has stopped since. follow up with [facility] in August. -admission Hemoglobin 6.5 -1 unit or PRBC to be transfused on 08/07/19 with dialysis Diet controlled diabetes -follow blood sugars. Deep venous thrombosis prophylaxis, sequential compression devices Level 1 full code. Subjective Patient seen at bedside. There is a 1 to 1 manager nursing. Patient has bucket in front of her. She feels nausea but no vomiting yet. Patient answers questions appropriately. She denies homicidal ideations. When asked about her mood and whether she has any suicidal ideations, patient replies that she has not tried to hurt herself directly but in a way she has been trying to hurt her own health by giving up on medical treatments (i.e. not going as needed to dialysis sessions as outpatient, not taking her sertraline medication). Reports these feelings going on for 1 month. breathing on room air. no chest pain. chronic left shoulder pain which she attributes to shoulder cuff injury. no distress. denies abdominal pain. denies vaginal bleeding Review of Systems Review of Systems: All systems reviewed & are unremarkable except as noted in HPI & below Physical Exam Constitutional: + obese Eyes: PERRL, conjunctivae normal, anicteric sclerae EOM intact bilaterally ENMT: external ear and nose normal, oropharynx normal Neck: normal visual inspection Respiratory: normal respiratory effort, lungs clear to auscultation Cardiovascular: Rate/Rhythm: regular rhythm Gastrointestinal (Abdomen): normal bowel sounds, soft, nontender, no hepatosplenomegaly Musculoskeletal: Head/Neck/Chest: normocephalic and head atraumatic Neurologic: PERRL, EOMI, accommodation nl, no face palsy, no dysarthria CN's II-XI intact bilaterally Psychiatric: Orientation: alert, oriented x 3 and cooperative Results & Data Vital Signs (Past 12 Hours) Vital Signs Temp Pulse Resp BP Pulse Ox 08/07/19 06:48 36.5 C 67 16 186/102 H 94 08/07/19 03:09 36.5 C 66 18 162/93 H 93 08/06/19 23:05 36.6 C 81 18 171/101 H 92 08/06/19 22:59 36.6 C 81 19 171/101 H 92 08/06/19 22:03 78 20 153/98 H 98 (1) Depression Depression Type: unspecified Qualified Code(s): F32.9 - Major depressive disorder, single episode, unspecified (2) HTN (hypertension) Hypertension type: essential hypertension Qualified Code(s): I10 - Essential (primary) hypertension
[2019-08-07 08:53] LABS: Iron 42 mcg/dl (35-150); Transferrin 159 mg/dl (200-360); Transferrin Percent Saturation 19 % (15-50)
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
--- NOTE | 2019-08-07 14:24 | Nephrology Consultation ---
Date of Consultation August 07, 2019 Assessment & Plan (1) Anemia: hgb improved mildly today from yesterday: 6.5>7.4; no active bleeding reported; low in part d/t ESRD and no EMILY; transferrin sat = 19% -for 1 unit pRBC today -gave 40455 units epo on tx today -w/ low plts will hold heparin hourly flushes today and give only bolus -cbc daily pls given low plts, hgb -venofer w/ tx tomorrow; would dose once weekly Present on Admission?: Yes (2) ESRD (end stage renal disease) on dialysis: anuric pt noncompliant whose last HD was almost a week ago and tx before that more than a week prior. -HD today on large dialyzer 4.5 hrs 2 K bath w/ pRBC during tx, aggressive uf -plan HD again tomorrow Present on Admission?: Yes (3) Dialysis patient, noncompliant: agree w/ psychiatry evaluation; pt has heavy disease burden and overwhelmed by it; cont to discuss goals of care -low threshold for palliative consult Present on Admission?: Yes (4) Hypertension: still w/ marked HTN; should improve w/ serial dialysis -give current bp meds standing/OP -aggressive HD today w/ goal 3-3.5L uf -wrote for prn hydralazine, enalaprilat > give latter preferentially over former Present on Admission?: Yes (5) Depression: versus other psych diagnoses contributing to nonadherence; agree w/ psych eval Present on Admission?: Yes History of Present Illness Reason for Consultation: ESRD Requesting Physician: Dr Morgan Attending Physician: Davian Garcia MD History of Present Illness 33 y/o F whom I'm asked to see for dialysis needs after she was admitted overnight for hgb 6.5, exertional dyspnea, HTN after missing several dialysis txs. PMH includes ESRD on chronic in center HD w/ hx of poor adherence to txs, HTN, FSGS s/p living related renal txplt which failed d/t noncompliance w/ meds, chronic anemia c/b occasional vaginal bleeding, ongoing tobacco abuse, migraines, mood disorder. She dialyzes at [facility] under my care. She had had repeated admissions to [facility] and most recently to [facility] for symptomatic anemia, volume overload due in part to not taking meds/not doing outpatient dialysis. Her most recent dialysis prior to presentation yesterday was on 08/01 at [facility]. She has no called/ no showed last 9 outpatient dialysis treatments. Today she states to me that "I just gave up;" has not wanted to come to dialysis even though she knows will w/o it. Human Relations Teacher evaluated her in May for vaginal bleeding as well; to see them in f/u in Aug 2019. Allergies Allergy/AdvReac Type Severity Reaction Status Date / Time cefaclor Allergy Intermediate Rash Verified 08/06/19 21:30 amoxicillin AdvReac Mild VOMITING Verified 08/06/19 21:30 clavulanic acid AdvReac Mild VOMITING Verified 08/06/19 21:30 Home Medications Home Medications Medication Instructions Recorded Confirmed Type albuterol sulfate [Ventolin HFA] 2 puff INHALATION QID PRN 05/30/18 08/06/19 History calcium acetate 2,668 mg PO DIRECTED 05/30/18 08/06/19 History calcium acetate 3,335 mg PO TIDM 05/30/18 08/06/19 History sumatriptan succinate [Imitrex] 50 mg PO DIRECTED PRN MDD 100 05/30/18 08/06/19 History MG/24 HOURS amlodipine [Norvasc] 10 mg PO QAM 11/03/18 08/06/19 History gabapentin [Neurontin] 800 mg PO HS 11/26/18 08/06/19 History calcium acetate 1,334 mg PO DIRECTED 01/24/19 08/06/19 History gabapentin [Neurontin] 400 mg PO DIRECTED 01/24/19 08/06/19 History famotidine [Pepcid] 40 mg PO QAM 04/21/19 08/06/19 History sevelamer carbonate [Renvela] 1,600 mg PO TIDM 04/21/19 08/06/19 History carvedilol [Coreg] 25 mg PO BID 06/06/19 08/06/19 History sertraline [Zoloft] 100 mg PO QAM 06/12/19 08/06/19 History trazodone 50 mg PO HS 06/12/19 08/06/19 History loratadine [Claritin] 10 mg PO DAILY PRN 06/17/19 08/06/19 History cinacalcet [Sensipar] 60 mg PO QDD 07/22/19 08/06/19 History prochlorperazine maleate 10 mg PO QID PRN 07/26/19 08/06/19 History [Compazine] tramadol 25 - 50 mg PO Q8H PRN #10 tab 07/29/19 08/06/19 Rx Patient History Medical History Anemia Anxiety and depression Asthma "BEEN A WHILE" SINCE USING LAST RESCUE INHALER Bipolar disorder CKD (chronic kidney disease) stage V requiring chronic dialysis (Chronic) Depression (Chronic) Dialysis patient SATURDAY/SAT/SATURDAY AT [facility] DM2 (diabetes mellitus, type 2) (Chronic) CONTROLLED WITH DIET AND EXERCISE Fistula LEFT ARM FSGS (focal segmental glomerulosclerosis) (Chronic) DX INITIALLY 2012 (CAUSING ESRD 2012) GERD (gastroesophageal reflux disease) HTN (hypertension) (Chronic) Migraine Peripheral neuropathy Peritoneal dialysis catheter in place Prolonged QT interval Restless leg syndrome Surgical History H/O eye surgery (Resolved) LASER SURGERY H/O hernia repair (Resolved) ABDOMINAL WALL H/O knee surgery (Resolved) LEFT KNEE X 2 H/O tubal ligation (Resolved) H/O: (Resolved) X 2 History of cardiac cath 2016 NO STENTS History of cholecystectomy (Resolved) History of colonoscopy History of tooth extraction Kidney transplant recipient 2013 AT [facility] Family History Grandmother Hx of CABG Mother Diabetes Father Crohn's disease Grandfather (Maternal) Diabetes Uncle Diabetes Social History Preferred Language: Ghanaian Communication Ability: Effective Health Insurance Sales Agent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 Beliefs That Will Affect Care: None marital status: Current Living Situation: Family Current Living Situation Comment: [employer] current occupational status: employed Other Information That Helps Us Care for You: No Feels Safe at Home: Yes Safety Concerns: Afraid for Self Smoking Status: Current every day smoker Tobacco Type: cigarettes ; Cigarettes Per Day: 2 ; Do You Dip or Chew Tobacco: No ; Second Hand Exposure: Yes ; Tobacco Cessation Education Requested by Patient: No Hx Alcohol Use: No Hx Substance Use: No Review of Systems Review of Systems: All systems reviewed & are unremarkable except as noted in HPI & below Constitutional: + fatigue, + weakness, + weight gain and + insomnia Eyes: no worsening vision Ear, Nose, Mouth, Throat: no dry mouth Respiratory: + dyspnea on exertion Cardiovascular: + dyspnea on exertion and + orthopnea; no chest pain, no radiating jaw, neck or arm pain (but does endorse L shoulder pain) and no edema Gastrointestinal: no abdominal pain, no nausea, no vomiting, no diarrhea/loose stools, no blood in stools and no melena Genitourinary: pt is anuric Musculoskeletal: + joint pain (cesar L shoulder), + myalgia and + muscle weakness; no back pain Integumentary: + lesions (BL ant shins scabbed/excoriated from itch); no rash and no non-healing lesions Neurologic: no falls, no localized weakness, no generalized weakness and no confusion Psychiatric: + behavioral changes, + depression, + hopelessness, + abnormal sleep pattern and + anxiety Endocrine: + fatigue Hematologic / Lymphatic: no easy bleeding Physical Exam Constitutional: well developed and well nourished; no acute distress (on RA, maneuvers readily for exam; sitter at bedside) Eyes: EOM intact bilaterally ENMT: Ears: no external ear abnormality Nose: no external nose abnormality Mouth: + dry oral mucous membranes Neck: no nuchal rigidity Respiratory: normal respiratory effort Auscultation: + diminished lung sounds and + crackles (bibasilar) Cardiovascular: RRR, no murmur, no edema Extremities: + AV fistula (+ t/b) Gastrointestinal (Abdomen): Inspection/Auscultation: normal bowel sounds Percussion/Palpation: abdomen soft; abdomen nontender Musculoskeletal: no cyanosis or clubbing, extremities motor strength 5/5 Extremities: strength 5/5 throughout Skin: no rashes, warm and dry Neurologic: sandy, fluent speech, no tremor Psychiatric: Orientation: alert and oriented x 3 Apperance: + disheveled Speech: normal rate/rhythm/volume of speech Affect: + flat affect Results & Data Vital Signs (Past 12 Hours) Vital Signs Temp Pulse Pulse Pulse Resp BP BP 08/07/19 13:40 70 198/114 H 08/07/19 13:20 63 188/112 H 08/07/19 13:01 63 173/100 H 08/07/19 12:40 65 168/110 H 08/07/19 12:20 65 160/100 H 08/07/19 12:09 63 166/100 H 08/07/19 12:00 36.8 C 63 08/07/19 11:28 36.3 C L 69 18 165/99 H 08/07/19 10:48 66 08/07/19 06:48 36.5 C 67 16 186/102 H 08/07/19 03:09 36.5 C 66 18 162/93 H Pulse Ox 08/07/19 13:40 08/07/19 13:20 08/07/19 13:01 08/07/19 12:40 08/07/19 12:20 08/07/19 12:09 08/07/19 12:00 08/07/19 11:28 91 08/07/19 10:48 08/07/19 06:48 94 08/07/19 03:09 93 Laboratory Results 08/07/19 05:14 08/07/19 05:14 Diagnostic Findings cxr> early congestive failure/mild plm edema (1) Anemia Anemia type: unspecified type Qualified Code(s): D64.9 - Anemia, unspecified (2) Hypertension Hypertension type: unspecified Qualified Code(s): I10 - Essential (primary) hypertension (3) Depression Depression Type: unspecified Qualified Code(s): F32.9 - Major depressive disorder, single episode, unspecified
[2019-08-07] MEDS: HEPARIN SOD (PORCINE) 1000 UNIT/ML 10 ML VIAL IV SCH ×2 (15:04→15:05)
[2019-08-07] MEDS: ENALAPRILAT 1.25 MG in DEXTROSE 5% 25 ML IV PRN (15:20)
[2019-08-07] MEDS: ONDANSETRON INJ 2 MG/ML 2 ML VIAL IV PRN (16:14)
[2019-08-07] MEDS: HydrALAZINE HCL 20 MG/ML VIAL IV PRN (19:11)
[2019-08-07] MEDS: TRAZODONE HCL 100 MG TAB PO SCH (19:56)
[2019-08-07] MEDS ORDERED: LABETALOL HCL IV 5 MG/ML 20ML IV ONE (20:00)
[2019-08-07] MEDS ORDERED: LABETALOL HCL IV 5 MG/ML 20ML IV STA (20:52)
[2019-08-07] MEDS ORDERED: cloNIDine HCL 0.3 MG/24 HR TRANSDERM SYS TD SCH (21:00)
[2019-08-08] MEDS: CHECK CLONIDINE PATCH PLACEMENT SCH ×3 (00:03→15:23)
[2019-08-08] MEDS: ENALAPRILAT 1.25 MG in DEXTROSE 5% 25 ML IV PRN (00:35)
[2019-08-08] MEDS: HydrALAZINE HCL 20 MG/ML VIAL IV PRN ×2 (01:29→13:24)
[2019-08-08] MEDS: ONDANSETRON INJ 2 MG/ML 2 ML VIAL IV PRN (01:46)
[2019-08-08] MEDS: HYDROmorphone INJ 0.5 MG/0.5 ML SYR IV PRN ×5 (01:46→21:08)
[2019-08-08] MEDS ORDERED: PROMETHAZINE HCL 12.5 MG in SODIUM CHLORIDE 0.9% 50 ML IV PRN (05:27)
[2019-08-08] MEDS ORDERED: LABETALOL HCL IV 5 MG/ML 20ML IV SCH (06:00)
[2019-08-08] MEDS: GABAPENTIN 400 MG CAP PO SCH ×3 (06:22→21:07)
[2019-08-08] MEDS ORDERED: EPOETIN ALFA 20,000 UNITS/ML VIAL IV ONE (07:00)
[2019-08-08] MEDS ORDERED: IRON SUCROSE 100 MG in SYRINGE 0 ML IV SCH (07:00)
[2019-08-08] MEDS ORDERED: EPOETIN ALFA 24,000 UNITS in SYRINGE 0 ML IV SCH (07:00)
[2019-08-08] MEDS ORDERED: SODIUM CHLORIDE 0.9% 1000ML 1,000 ML IV PRN (07:00)
[2019-08-08] MEDS ORDERED: HEPARIN SOD (PORCINE) 1000 UNIT/ML 10 ML VIAL IV ONE (07:00)
[2019-08-08] MEDS ORDERED: ACETAMINOPHEN 325 MG TAB PO PRN (07:51)
[2019-08-08] MEDS: CALCIUM ACETATE 667 MG CAP PO SCH ×3 (07:55→17:48)
[2019-08-08] MEDS: SERTRALINE HCL 100 MG TABLET PO SCH (07:58)
[2019-08-08] MEDS: SEVELAMER HCL 800 MG TABLET PO SCH ×3 (07:58→17:48)
[2019-08-08] MEDS: FAMOTIDINE 40 MG TABLET PO SCH (07:59)
[2019-08-08 08:39] LABS: Hematocrit (blood only) 25.7 % (37-47); Hemoglobin 8.5 g/dL (12.0-16.0); Mean Corpuscular Hemoglobin 30.6 pg (25-34); Mean Corpuscular Hgb Conc 33.1 g/dL (32-36); Mean Corpuscular Volume 92.4 fL (80-100); RDW Coefficient of Variation 15.5 % (11.5-14.5); RDW Standard Deviation 52.3 fL (36.4-46.3); Red Blood Count 2.78 M/uL (4.2-5.4); White Blood Count 6.26 K/uL (4.8-10.8)
--- NOTE | 2019-08-08 08:42 | Hospitalist Progress Note ---
Date of Service August 08, 2019 Assessment & Plan (1) ESRD (end stage renal disease) on dialysis: -This is a 33-year-old female who presents with depression and missed dialysis, shortness of breath on exertion and elevated blood pressure. -symptoms secondary to non adherence to outpatient dialysis treatment -08/07/19 dialysis session completed -08/08/19 dialysis session pending (2) Depression: -reason for missing dialysis as outpatient from depression -08/07/19: Patient seen at bedside. There is a 1 to 1 professional nursing assistant. Patient has bucket in front of her. She feels nausea but no vomiting yet. Patient answers questions appropriately. She denies homicidal ideations. When asked about her mood and whether she has any suicidal ideations, patient replies that she has not tried to hurt herself directly but in a way she has been trying to hurt her own health by giving up on medical treatments (i.e. not going as needed to dialysis sessions as outpatient, not taking her sertraline medication). Reports these feelings going on for 1 month -inpatient psychiatry following the patient -sertraline 100 mg daily if patient chooses to take -at this time, patient does not appear to have acute direct suicidal risks; will place on close checks from nursing as 1 to 1 aide does not appear to be needed at this time. patient encouraged to shower Sleep disorder -patient reported not able to sleep well -titrating trazodone to 100 mg nightly in order to promote a more regular sleep/wake cycle as per psychiatry Prolonged QTc on EKG -admission QTc intervals above 500 on EKGs -avoid potential QT prolonging drugs (3) HTN (hypertension): Hypertensive urgency on admission -She is not taking medications at home. Continue amlodipine 10 mg daily, Coreg, currently is on 25 mg p.o. b.i.d. which we will continue and monitor the blood pressure and adjust the medication. Received clonidine in the Emergency Room. -08/07/19 dialysis session completed -08/08/19 updates: Night time nurse had reported patient was nonadherent to oral medications and that patient witnessed to have pills of medications pocketed. Blood pressure medications required adjustment to clonidine patch (oral carvedilol orders stopped) and further IV medication of Labetalol in addition on hospital medication orders of IV hydralazine and IV enalprilat as ordered by nephrology consult. Patient's nurse this AM noted that patient adherent to taking oral medications. Patient will be due for 2nd dialysis session on 08/08/19. Shortness of breath -admission complaints of shortness of breath most likely secondary to missed dialysis and anemia -breathing on room air Anemia from end stage renal disease -She has had vaginal bleeding in May, which has stopped since. follow up with [facility] in August. -admission Hemoglobin 6.5 -1 unit or PRBC transfused on 08/07/19 with dialysis -Hgb 8.5 on repeat Diet controlled diabetes -follow blood sugars. Deep venous thrombosis prophylaxis, sequential compression devices Level 1 full code. Subjective Night time nurse had reported patient was nonadherent to oral medications and that patient witnessed to have pills of medications pocketed. Blood pressure medications required adjustment to clonidine patch (oral carvedilol orders stopped) and further IV medication of Labetalol in addition on hospital medication orders of IV hydralazine and IV enalprilat as ordered by nephrology consult. Patient's nurse this AM noted that patient adherent to taking oral medications. Patient will be due for 2nd dialysis session on 08/08/19. patient reports poor sleep. reports some chronic left shoulder pain when asked and reported some back pain when asked. denies other symptoms. Review of Systems Review of Systems: All systems reviewed & are unremarkable except as noted in HPI & below Physical Exam Constitutional: + obese Eyes: PERRL, conjunctivae normal, anicteric sclerae EOM intact bilaterally ENMT: external ear and nose normal, oropharynx normal Neck: normal visual inspection Respiratory: normal respiratory effort, lungs clear to auscultation Cardiovascular: Rate/Rhythm: regular rhythm Gastrointestinal (Abdomen): normal bowel sounds, soft, nontender, no hepatosplenomegaly Musculoskeletal: Head/Neck/Chest: normocephalic and head atraumatic Neurologic: PERRL, EOMI, accommodation nl, no face palsy, no dysarthria C N's II-XI intact bilaterally Psychiatric: Orientation: alert, oriented x 3 and cooperative Results & Data Vital Signs (Past 12 Hours) Vital Signs Temp Pulse Pulse Pulse Resp BP Pulse Ox 08/08/19 07:37 73 08/08/19 07:04 36.9 C 73 16 174/99 H 91 08/08/19 06:07 77 180/96 H 08/08/19 03:54 36.7 C 72 18 156/94 H 94 08/08/19 02:14 79 175/94 H 08/08/19 01:27 79 190/76 H 08/08/19 00:00 74 08/07/19 23:57 36.8 C 76 18 179/82 H 92 08/07/19 23:06 191/106 H 08/07/19 22:29 170/105 H 08/07/19 21:51 76 18 179/106 H 08/07/19 21:14 174/96 H (1) Depression Depression Type: unspecified Qualified Code(s): F32.9 - Major depressive disorder, single episode, unspecified (2) HTN (hypertension) Hypertension type: essential hypertension Qualified Code(s): I10 - Essential (primary) hypertension
[2019-08-08 08:43] LABS: Mean Platelet Volume 9.9 fL (7.4-10.4); Platelet Count 89 K/uL (130-400)
[2019-08-08 08:55] LABS: Basophils # (auto) 0.02 K/uL (0-0.2); Basophils % (auto) 0.3 %; Eosinophils # (auto) 0.64 K/uL (0-0.5); Eosinophils % (auto) 10.2 %; Immature Granulocytes # (auto) 0.01 K/uL (0.00-0.02); Immature Granulocytes % (auto) 0.2 %; Lymphocytes % (auto) 11.2 %; Monocytes # (auto) 0.38 K/uL (0.11-0.59); Monocytes % (auto) 6.1 %; Neutrophils # (auto) 4.51 K/uL (1.4-6.5)
[2019-08-08 09:36] LABS: Albumin Globulin Ratio 0.8 (0.9-2); Albumin Level 3.1 gm/dl (3.4-5.0); BUN Creatinine Ratio 4.5 (10-20); Bilirubin,Total 0.6 mg/dl (0.2-1); Calcium 8.7 mg/dl (8.5-10.1); Creatinine Clr Calc Pharmacy 9.8 ml/min; Est GFR (African American) 4.9; Est GFR (Non-African American) 4.3; Globulin 3.8 gm/dl (2.5-4.0); Potassium 4.1 mmol/L (3.5-5.1); Total Protein 6.9 gm/dl (6.4-8.2)
[2019-08-08] MEDS: AMLODIPINE BESYLATE 5 MG TAB PO SCH (13:09)
[2019-08-08] MEDS: LABETALOL HCL IV 5 MG/ML 20ML IV SCH ×3 (14:25→15:56)
[2019-08-08] MEDS: HEPARIN SOD (PORCINE) 1000 UNIT/ML 10 ML VIAL IV SCH (15:43)
[2019-08-08] MEDS: TRAZODONE HCL 100 MG TAB PO SCH (21:07)
[2019-08-09] MEDS: CHECK CLONIDINE PATCH PLACEMENT SCH ×2 (00:50→07:45)
[2019-08-09] MEDS: GABAPENTIN 400 MG CAP PO SCH ×2 (07:03→11:35)
[2019-08-09 07:34] VITALS: TEMP 98.8; O2SAT 97
[2019-08-09] MEDS ORDERED: HYDROmorphone INJ 0.5 MG/0.5 ML SYR IV PRN (07:37)
[2019-08-09] MEDS: SERTRALINE HCL 100 MG TABLET PO SCH (07:45)
[2019-08-09] MEDS: FAMOTIDINE 40 MG TABLET PO SCH (07:45)
[2019-08-09] MEDS: AMLODIPINE BESYLATE 5 MG TAB PO SCH (07:46)
[2019-08-09] MEDS: SEVELAMER HCL 800 MG TABLET PO SCH ×2 (07:48→11:35)
[2019-08-09] MEDS: CALCIUM ACETATE 667 MG CAP PO SCH ×2 (07:48→11:35)
[2019-08-09] MEDS ORDERED: LOSARTAN POTASSIUM 50 MG TAB PO SCH (09:00)
--- NOTE | 2019-08-09 09:13 | Hospitalist Progress Note ---
Date of Service August 09, 2019 Assessment & Plan (1) ESRD (end stage renal disease) on dialysis: -This is a 33-year-old female who presents with depression and missed dialysis, shortness of breath on exertion and elevated blood pressure. -symptoms secondary to non adherence to outpatient dialysis treatment -08/07/19 dialysis session completed -08/08/19 dialysis session completed -next dialysis session is likely to be Saturday07/31/19 for Saturday, Saturday, Saturday dialysis. Patient's nonadherence to outpatient dialysis sessions is a main problem. She reports that her usual dialysis center is [facility] in [place]. Before patient can be discharged, will need case manger fire control assistant to help coordinate outpatient dialysis scheduling. expect that patient will need inpatient dialysis on 08/10/19 at this time (2) Depression: -reason for missing dialysis as outpatient from depression -08/07/19: Patient seen at bedside. There is a 1 to 1 nursing home administrator. Patient has bucket in front of her. She feels nausea but no vomiting yet. Patient answers q uestions appropriately. She denies homicidal ideations. When asked about her mood and whether she has any suicidal ideations, patient replies that she has not tried to hurt herself directly but in a way she has been trying to hurt her own health by giving up on medical treatments (i.e. not going as needed to dialysis sessions as outpatient, not taking her sertraline medication). Reports these feelings going on for 1 month -inpatient psychiatry following the patient -sertraline 100 mg daily if patient chooses to take -patient does not appear to have acute direct suicidal risks; patient was placed on close checks on 08/08/19 as 1 to 1 nursing home administrator does not appear to be needed at this time -08/09/19: patient encouraged to ambulate and shower. she appears to be rather sedentary while sitting on the bed. Sleep disorder -patient reported not able to sleep well at home -titrating trazodone to 100 mg nightly in order to promote a more regular sleep/wake cycle as per psychiatry Prolonged QTc on EKG -admission QTc intervals above 500 on EKGs -avoid potential QT prolonging drugs (3) HTN (hypertension): Hypertensive urgency on admission -She is not taking medications at home. Continue amlodipine 10 mg daily, Coreg, currently is on 25 mg p.o. b.i.d. which we will continue and monitor the blood pressure and adjust the medication. Received clonidine in the Emergency Room. -08/07/19 dialysis session completed -08/08/19 updates: Night time nurse had reported patient was nonadherent to oral medications and that patient witnessed to have pills of medications pocketed. Blood pressure medications required adjustment to clonidine patch (oral carvedilol orders stopped) and further IV medication of Labetalol in addition on hospital medication orders of IV hydralazine and IV enalprilat as ordered by nephrology consult. Patient's nurse this AM noted that patient adherent to taking oral medications. Patient completed 2nd dialysis session on 08/08/19. -08/09/19: blood pressures somewhat improving but remains elevated. have changed IV enalprilat to losartan 50 mg daily Shortness of breath -admission complaints of shortness of breath most likely secondary to missed dialysis and anemia -breathing on room air Anemia from end stage renal disease -She has had vaginal bleeding in May, which has stopped since. follow up with [facility] in August. -admission Hemoglobin 6.5 -1 unit or PRBC transfused on 08/07/19 with dialysis; Hgb 8.5 on repeat. epogen or venofer with dialysis sessions as per nephrology Diet controlled diabetes -blood sugars are unremarkable when checked during hospital stay to date Deep venous thrombosis prophylaxis, sequential compression devices Level 1 full code. Subjective Patient seen and examined while sitting on the bed. Patient on room air. denies acute pain. patient cooperative on exam. But does not elaborate on additional symptoms or health concerns. Patient's blood pressure is high. but is asymptomatic. she does not have dizziness or headache complaints. Patient encouraged to shower. and encouraged to ambulate. Review of Systems Review of Systems: All systems reviewed & are unremarkable except as noted in HPI & below Physical Exam Constitutional: + obese Eyes: PERRL, conjunctivae normal, anicteric sclerae EOM intact bilaterally ENMT: external ear and nose normal, oropharynx normal Neck: normal visual inspection Respiratory: normal respiratory effort, lungs clear to auscultation Cardiovascular: Rate/Rhythm: regular rhythm Gastrointestinal (Abdomen): normal bowel sounds, soft, nontender, no hepatosplenomegaly Musculoskeletal: Head/Neck/Chest: normocephalic and head atraumatic Neurologic: PERRL, EOMI, accommodation nl, no face palsy, no dysarthria CN's II-XI intact bilaterally Psychiatric: Orientation: alert, oriented x 3 and cooperative Results & Data Vital Signs (Past 12 Hours) Vital Signs Temp Pulse Pulse Resp BP Pulse Ox Pulse Ox 08/09/19 07:34 37.1 C 52 L 16 179/97 H 97 08/09/19 07:06 78 08/08/19 23:32 74 08/08/19 22:30 92 08/08/19 22:29 36.6 C 69 18 175/97 H 92 (1) Depression Depression Type: unspecified Qualified Code(s): F32.9 - Major depressive disorder, single episode, unspecified (2) HTN (hypertension) Hypertension type: essential hypertension Qualified Code(s): I10 - Essential (primary) hypertension
[2019-08-09 10:22] VITALS: BP 179/92
[2019-08-09] MEDS ORDERED: LIDOCAINE 5% 1 PATCH TD SCH (13:15)
--- NOTE | 2019-08-09 13:16 | Discharge Summary ---
Date of Service August 09, 2019 Admission HPI Per Admitting Provider DATE OF ADMISSION: 08/06/2019 CHIEF COMPLAINT: Missing dialysis, shortness of breath on exertion, hypertensive urgency and depression. HISTORY OF PRESENT ILLNESS: This is a 33-year-old female with past medical history significant for end-stage renal disease, used to be on peritoneal dialysis, currently on hemodialysis, history of FSGS, status post failed renal transplantation, type 2 diabetes diet controlled, mood disorder, history of umbilical hernia, chronic anemia, baseline hemoglobin of 7-9, history of migraines, ongoing tobacco abuse who presents because of missed dialysis, depression and shortness of breath on exertion. The patient states since last about 2 weeks, she is not going to dialysis because she does not like the feeling of the dialysis. After dialysis, she is feeling worn out. She also does not like the peritoneal dialysis because on the peritoneal dialysis she has to dialysis every night and she has 3 kids at home and is she is not available to them. But says also she does not like the hemodialysis because of worn out feeling.And she also has some left-sided rotator cuff pain and because of all these things, she just gave up and she is not also taking blood pressure medications and missing her dialysis. She came here to [facility] last Saturday and she was transferred to [place] for dialysis and she states had couple of hours of Dialysis. Has some headaches. Denies any blurred vision. No earache. No runny nose. No sore throat. Appetite is not good. No cough. No fever. No chills. No difficulty swallowing. She is not sleeping good. Her primary care doctor has increased Zoloft from 50 mg to 100 mg and stopped Remeron and she is on trazodone but change in medication is still not helping her sleep. All this things are bothering her and she is feeling depressed. Denies any chest pain. No shortness of breath. No cough. No nausea. No abdominal pain. She is having diarrhea since last 2 weeks. No blood in the stools or black stools. Does not make any urine. No rash anywhere. She has had vaginal bleeding in May, but that has stopped now. She has a followup appointment with [facility] in August. Psychiatry History and Physical (Alexandra Arguello is a 33-year-old female admitted medically on 08/06/2019 after presenting to the ED reporting several missed dialysis sessions and poor compliance with outpatient medications. Patient was found to be hypertensive, and was admitted medically for management and to restart dialysis. Psychiatric consultation was requested to evaluate patient for depression, as it was felt this may be playing a role in her relapse and follow-ups. Patient does admit to a history of depression, and states she has previously been seen for medication management by a psychiatric prescriber. She states that her medications are now being managed by her PCP, and adjustments have been made in 05/2019 to better target her mood and poor sleep. Patient's dose of sertraline was titrated to 100 mg in 05/2019, and she was switched to trazodone 50 mg to target sleep. Patient reports depressive symptoms of low mood, difficulty falling and remaining asleep at night, increased daytime fatigue, decreased energy, and episodes of hopelessness. Patient reports decreased appetite over the past several weeks, but is unsure about any notable weight loss. She reports to this provider that she is "overwhelmed", and "stressed about everything." Patient states that her sertraline has provided benefit for her mood, and she noticed that she is "more irritated" when she misses doses of the medication. Patient does feel that the recent titration of sertraline and initiation of trazodone have been effective, and is now verbalizing willingness to continue with these medications. Patient states that while having 3 young children at home is a source of her stress, it is also a significant reason for her to want to care for herself properly. Patient states that her father completed suicide in 2007, "I know what it feels like to grow up without a parent because of that, I would never do that to my children." Patient denies history of suicide attempts or inpatient psychiatric hospitalizations.) Admission Exam Per Admitting Provider GENERAL: The patient is obese, not in acute distress. VITAL SIGNS: Temperature 36.8, pulse 70, respiratory rate 15, blood pressure 156/98 and oxygen 97% on room air. HEENT: No pallor. No icterus. Pupils are equal, round and reactive to light. NECK: No JVD. No neck masses. No carotid bruits. CARDIOVASCULAR: S1, S2 heard. Regular rate and rhythm. No murmur. No gallop. RESPIRATORY SYSTEM: Normal AP diameter. No accessory muscle use. No wheezing. No crackles. ABDOMEN: Soft. Bowel sounds present. Nontender. No distention. CENTRAL NERVOUS SYSTEM: Cranial nerves II through XII grossly intact. Nonfocal. EXTREMITIES: Mild pedal edema present. No erythema seen. Principal Diagnosis ESRD (end stage renal disease) on dialysis, Hypertensive urgency, Prolonged QTc on EKG, anemia, Depression, anemia in end stage renal disease, medical non- adherence, Left shoulder pain Discharge Exam Constitutional + obese Eyes PERRL, conjunctivae normal, anicteric sclerae EOM intact bilaterally ENMT external ear and nose normal, oropharynx normal Neck normal visual inspection Respiratory normal respiratory effort, lungs clear to auscultation Cardiovascular Rate/Rhythm: regular rhythm Gastrointestinal (Abdomen) normal bowel sounds, soft, nontender, no hepatosplenomegaly Musculoskeletal Head/Neck/Chest: normocephalic and head atraumatic Neurologic PERRL, EOMI, accommodation nl, no face palsy, no dysarthria CN's II-XI intact bilaterally Psychiatric Orientation: alert, oriented x 3 and cooperative Discharge Data Allergies Allergy/AdvReac Type Severity Reaction Status Date / Time cefaclor Allergy Intermediate Rash Verified 08/06/19 21:30 amoxicillin AdvReac Mild VOMITING Verified 08/06/19 21:30 clavulanic acid AdvReac Mild VOMITING Verified 08/06/19 21:30 Consultations 08/06/19 22:30 Consult Case Management - Discharge Planning Routine Consult Nephrology Routine 08/06/19 23:26 Consult Behavioral Health Liaison Routine 08/07/19 08:00 Consult Psychiatry Routine Hospital Course (1) ESRD (end stage renal disease) on dialysis: Medical Non Adherence -This is a 33-year-old female who presents with depression and missed dialysis, shortness of breath on exertion and elevated blood pressure. -symptoms secondary to non adherence to outpatient dialysis treatment -08/07/19 dialysis session completed -08/08/19 dialysis session completed -next dialysis session is to be Saturday07/31/19 for Saturday, Saturday, Saturday dialysis Patient [facility] Calcium acetate tablets renewed Patient should make appointment to follow with primary care doctor and nephrology doctor with 1 to 2 weeks of hospital discharge (2) Depression: -reason for missing dialysis as outpatient from depression -08/07/19: Patient seen at bedside. There is a 1 to 1 director of emergency nursing. Patient has bucket in front of her. She feels nausea but no vomiting yet. Patient answers questions appropriately. She denies homicidal ideations. When asked about her mood and whether she has any suicidal ideations, patient replies that she has not tried to hurt herself directly but in a way she has been trying to hurt her own health by giving up on medical treatments (i.e. not going as needed to daxa lysis sessions as outpatient, not taking her sertraline medication). Reports these feelings going on for 1 month -inpatient psychiatry following the patient -sertraline 100 mg daily if patient chooses to take -patient does not appear to have acute direct suicidal risks; patient was placed on close checks on 08/08/19 as 1 to 1 director of emergency nursing does not appear to be needed at this time -08/09/19: Patient should continue taking sertraline (Zoloft) as 100 mg daily. Patient more active in afternoon. she reports she understands discharge instructions Sleep disorder -patient reported not able to sleep well at home -titrating trazodone to 100 mg nightly in order to promote a more regular sleep/wake cycle as per psychiatry -Patient should continue taking sertraline (Zoloft) as 100 mg daily, and Trazod one 100 mg qhs (10 day supply) on discharge to help with sleep Prolonged QTc on EKG -admission QTc intervals above 500 on EKGs -avoid potential QT prolonging drugs (3) HTN (hypertension): Hypertensive urgency on admission -She is not taking medications at home. Continue amlodipine 10 mg daily, Coreg, currently is on 25 mg p.o. b.i.d. which we will continue and monitor the blood pressure and adjust the medication. Received clonidine in the Emergency Room. -08/07/19 dialysis session completed -08/08/19 updates: Night time nurse had reported patient was nonadherent to oral medications and that patient witnessed to have pills of medications pocketed. Blood pressure medications required adjustment to clonidine patch (oral carvedilol orders stopped) and further IV medication of Labetalol in addition on hospital medication orders of IV hydralazine and IV enalprilat as ordered by nephrology consult. Patient's nurse this AM noted that patient adherent to taking oral medications. Patient completed 2nd dialysis session on 08/08/19. -08/09/19: Hospitalist medical doctor discussed with coil cutter Dr. Wilson and he discusses that non-adherence to dialysis prevents optimal blood pressure management for which blood pressure medications alone will not be able to control Patient should continue home medication of amlodipine 10 mg daily, carvedilol 25 mg BID, hospitalist also adding losartan 50 mg daily Shortness of breath -admission complaints of shortness of breath most likely secondary to missed dialysis and anemia -breathing on room air Anemia from end stage renal disease -She has had vaginal bleeding in May, which has stopped since. follow up with [facility] in August. -admission Hemoglobin 6.5 -1 unit or PRBC transfused on 08/07/19 with dialysis; Hgb 8.5 on repeat. epogen or venofer with dialysis sessions as per nephrology Diet controlled diabetes -blood sugars are unremarkable when checked during hospital stay to date Left Shoulder Pain -Patient may take acetaminophen 325 mg every 6 hours as needed for left shoulder pain. Patient may take cyclobenzaprine (flexeril) 5 mg every 8 hours as needed for muscle spasm (15 tablet supply). Patient should not take flexeril with tramadol to avoid potential drug interactions. Nurse will apply Lidocaine patch to patient for the left should pain Total Time Total Time Spent Total Time Spent (In Minutes): 40 minutes Total Time Includes: Examination of the Patient, Medication Reconciliation and Communication With Other Providers Discharge Plan Discharge Items Patient Disposition: Home - Self-Care Reason For Visit: DEPRESSION Discharge Diagnosis: ESRD (end stage renal disease) on dialysis, Hypertensive urgency, Prolonged QTc on EKG, anemia, Depression, anemia in end stage renal disease, medical non- adherence, Left shoulder pain Condition on Discharge: Good Activity: Resume your previous activity Non-emergency contact: Primary Care Provider Call non-emergency contact if: you have any medication questions Follow-up/Referrals: Adolph Aldridge MD [Primary Care Provider] - Diet: Carb Consistent or DM2 and Dialysis Renal Addtl Attending Provider Instructions: This is a 33-year-old female who presents with depression and missed dialysis, s hortness of breath on exertion and elevated blood pressure. -symptoms secondary to non adherence to outpatient dialysis treatment -08/07/19 dialysis session completed -08/08/19 dialysis session completed next dialysis session is to be Saturday07/31/19 for Saturday, Saturday, Saturday dialysis Patient is encouraged to go to [facility] for Saturday dialysis Hospitalist medical doctor discussed with coil cutter Dr. Wilson and he discusses that non-adherence to dialysis prevents optimal blood pressure management for which blood pressure medications alone will not be able to control Patient should continue home medication of amlodipine 10 mg daily, carvedilol 25 mg BID, hospitalist also adding losartan 50 mg daily Calcium acetate tablets renewed Patient should continue taking sertraline (Zoloft) as 100 mg daily Trazodone 100 mg qhs (10 day supply) ordered to help with sleep Patient may take acetaminophen 325 mg every 6 hours as needed for left shoulder pain. Patient may take cyclobenzaprine (flexeril) 5 mg every 8 hours as needed for muscle spasm (15 tablet supply). Patient should not take flexeril with tramadol to avoid potential drug interactions. Nurse will apply Lidocaine patch to patient for the left should pain Changes to medications as new prescriptions have been sent to [facility] Patient should make appointment to follow with primary care doctor and nephrology doctor with 1 to 2 weeks of hospital discharge Pending Studies at Discharge: Yes Stand-Alone Forms: My [facility] [employer], Smoking Cessation, Suicide Prevention Resources Medications and DC Order Prescriptions: New losartan 50 mg Tablet 50 mg PO QAM 30 Days Qty: 30 RF: 0 acetaminophen 325 mg tablet 325 mg PO Q6 PRN (Reason: fever or pain) 5 Days Qty: 20 RF: 0 trazodone 100 mg Tablet 100 mg PO HS 10 Days Qty: 10 RF: 0 cyclobenzaprine 5 mg tablet 5 mg PO Q8H PRN (Reason: muscle spasm) 5 Days Qty: 15 RF: 0 calcium acetate 667 mg Capsule 3,335 mg PO TIDM 30 Days Qty: 150 RF: 0 Continued amlodipine [Norvasc] 5 mg tablet 10 mg PO QAM RF: 0 carvedilol [Coreg] 25 mg tablet 25 mg PO BID RF: 0 loratadine [Claritin] 10 mg Tablet 10 mg PO DAILY PRN (Reason: Allergy Symptoms) RF: 0 prochlorperazine maleate [Compazine] 10 mg tablet 10 mg PO QID PRN (Reason: Nausea And Vomiting) RF: 0 sumatriptan succinate [Imitrex] 50 mg tablet 50 mg PO DIRECTED MDD 100 MG/24 HOURS PRN (Reason: Migraine Headache) RF: 0 albuterol sulfate [Ventolin HFA] 90 mcg/actuation HFA aerosol inhaler 2 puff Inhalation QID PRN (Reason: Shortness Of Breath Or Wheezing) RF: 0 calcium acetate 667 mg capsule 3,335 mg PO TIDM RF: 0 calcium acetate 667 mg capsule 2,668 mg PO DIRECTED RF: 0 gabapentin [Neurontin] 400 mg capsule 800 mg PO HS RF: 0 calcium acetate 667 mg capsule 1,334 mg PO DIRECTED RF: 0 gabapentin [Neurontin] 400 mg Capsule 400 mg PO DIRECTED RF: 0 sevelamer carbonate [Renvela] 800 mg tablet 1,600 mg PO TIDM RF: 0 famotidine [Pepcid] 40 mg Tablet 40 mg PO QAM RF: 0 sertraline [Zoloft] 100 mg tablet 100 mg PO QAM RF: 0 cinacalcet [Sensipar] 60 mg tablet 60 mg PO QDD RF: 0 Discontinued trazodone 50 mg tablet 50 mg PO HS RF: 0 tramadol 50 mg tablet 25 - 50 mg PO Q8H PRN (Reason: pain) Qty: 10 RF: 0 Discharge Orders: Discharge Order (Routine); Ordered 08/09/19 Ordered By: Davian Garcia Admission Data Admit Date/Time: 08/06/19 21:01 Attending Provider: Davian Garcia Admit Provider: Daquan Morgan Primary Care Provider: Adolph Aldridge Other Providers: Leah Nieves ; Jameel Wilson ; Caro Malik ; Cornelia Siegel Japheth E. ; Janice Angel
[2019-08-09 13:18] VITALS: PULSE 79
== END 2019-08-09 14:37 | disposition home or self-care (01) | DRG 683 ==
LOC: ED 16:12 → 2W 21:01

== ENCOUNTER 2019-08-19 20:13 | Inpatient (IN) ==
--- NOTE | 2019-08-19 21:05 | XRay Report ---
XR chest 1V portable CLINICAL HISTORY: Shortness of breath. COMPARISON STUDY: Chest CT May 23, 2019 and chest radiograph August 14, 2019. FINDINGS: Moderate cardiomegaly is noted. There are suspected trace bilateral pleural effusions. Ther e is no pneumothorax. Interstitial thickening has slightly increased and favors pulmonary edema. IMPRESSION: 1. Slight increase in interstitial thickening suggestive of pulmonary edema. 2. Trace bilateral pleural effusions. 3. Moderate cardiomegaly. ACT 112: Negative or not required by law. Electronically signed by: Sebastian Mcclain M.D. 08/19/2019 9:03 PM
--- NOTE | 2019-08-19 21:29 | Emergency Department Note ---
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 The patient states she is a dialysis patient and missed her dialysis yesterday because she did not know she had one. She reports she normally goes MWF, but she had an appointment yesterday. The patient notes she is also short of breath upon exertion and has stabbing chest pain in the center of her chest that does not radiate. She reports she checked her BP and it was 200/113. She states she has been evaluated for nausea before and has had Compazine, but it causes her be paranoid. The patient reports she does not make urine on her own. She denies fevers, the chanc e of , leg swelling, and leg pain. Home Medications Home Medications Medication Instructions Recorded Confirmed Type albuterol sulfate [Ventolin HFA] 2 puff INHALATION QID PRN 05/30/18 08/19/19 History calcium acetate 2,668 mg PO DIRECTED 05/30/18 08/19/19 History calcium acetate 3,335 mg PO TIDM 05/30/18 08/19/19 History sumatriptan succinate [Imitrex] 50 mg PO DIRECTED PRN MDD 100 05/30/18 08/19/19 History MG/24 HOURS amlodipine [Norvasc] 10 mg PO QAM 11/03/18 08/19/19 History gabapentin [Neurontin] 800 mg PO HS 11/26/18 08/19/19 History calcium acetate 1,334 mg PO DIRECTED 01/24/19 08/19/19 History gabapentin [Neurontin] 400 mg PO DIRECTED 01/24/19 08/19/19 History famotidine [Pepcid] 40 mg PO QAM 04/21/19 08/19/19 History sevelamer carbonate [Renvela] 1,600 mg PO TIDM 04/21/19 08/19/19 History carvedilol [Coreg] 25 mg PO BID 06/06/19 08/19/19 History sertraline [Zoloft] 100 mg PO QAM 06/12/19 08/19/19 History loratadine [Claritin] 10 mg PO DAILY PRN 06/17/19 08/19/19 History cinacalcet [Sensipar] 60 mg PO QDD 07/22/19 08/19/19 History prochlorperazine maleate 10 mg PO QID PRN 07/26/19 08/19/19 History [Compazine] losartan 50 mg PO QAM 30 Days #30 tab 08/09/19 08/19/19 Rx trazodone 150 mg PO HS 08/14/19 08/19/19 History diclofenac sodium 2 g TOPICAL DIRECTED 08/19/19 08/19/19 History Allergies Allergy/AdvReac Type Severity Reaction Status Date / Time cefaclor Allergy Intermediate Rash Verified 08/19/19 20:50 amoxicillin AdvReac Mild VOMITING Verified 08/19/19 20:50 clavulanic acid AdvReac Mild VOMITING Verified 08/19/19 20:50 Past Med/Surg History Medical History Anemia Anxiety and depression Asthma "BEEN A WHILE" SINCE USING LAST RESCUE INHALER Bipolar disorder CKD (chronic kidney disease) stage V requiring chronic dialysis (Chronic) Depression (Chronic) Dialysis patient SATURDAY/SAT/SATURDAY AT [facility] DM2 (diabetes mellitus, type 2) (Chronic) CONTROLLED WITH DIET AND EXERCISE Fistula LEFT ARM FSGS (focal segmental glomerulosclerosis) (Chronic) DX INITIALLY 2012 (CAUSING ESRD 2012) GERD (gastroesophageal reflux disease) HTN (hypertension) (Chronic) Migraine Peripheral neuropathy Peritoneal dialysis catheter in place Prolonged QT interval Restless leg syndrome Surgical History H/O eye surgery (Resolved) LASER SURGERY H/O hernia repair (Resolved) ABDOMINAL WALL H/O knee surgery (Resolved) LEFT KNEE X 2 H/O tubal ligation (Resolved) H/O: (Resolved) X 2 History of cardiac cath 2017 NO STENTS History of cholecystectomy (Resolved) History of colonoscopy History of tooth extraction Kidney transplant recipient 2014 AT [facility] Family History Grandmother Hx of CABG Mother Diabetes Father Crohn's disease Grandfather (Maternal) Diabetes Uncle Diabetes Social History Preferred Language: Sinhala Communication Ability: Effective Transmission And Coordination Engineer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 Beliefs That Will Affect Care: None marital status: Current Living Situation: Family Current Living Situation Comment: [facility] current occupational status: employed Feels Safe at Home: Yes Smoking Status: Current every day smoker Tobacco Type: cigarettes ; Cigarettes Per Day: 2 ; Second Hand Exposure: Yes ; Hx Alcohol Use: No Hx Substance Use: No Review of Systems See HPI for pertinent positives & negatives. and A total of 10 systems reviewed and were otherwise negative Physical Exam Vital Signs Vital Signs - 24 hr 08/19/19 20:14 08/19/19 20:30 08/19/19 22:34 Temperature 36.9 C Temperature Source Oral Pulse Rate - Lying 96 H Pulse Rate - Sitting 95 H Pulse Rate - Standing 99 H Pulse Rate 97 H Pulse Rate [Bilateral] 112 H Pulse Rhythm Regular Pulse Rhythm [Bilateral] Regular Pulse Strength Normal Pulse Strength [Bilateral] Normal Respiratory Rate 20 20 Respiratory Effort / Characteristics Non-Labored Spontaneous Non-Labored Spontaneous Respiratory Depth Normal Normal Respiratory Pattern Regular Regular Blood Pressure - Lying 193/115 H Blood Pressure - Sitting 196/122 H Blood Pressure- Standing 183/117 H Blood Pressure 211/114 H Blood Pressure [Right Arm] 215/136 H Blood Pressure Mean 146 Blood Pressure Mean [Right Arm] 162 Blood Pressure Position Sitting Blood Pressure Position [Right Arm] Sitting Pulse Oximetry 98 98 Oxygen Delivery Method Room Air Room Air Sepsis Recent Fever Within 48 Hours No Sepsis New/Unexplained Change in Mental Status No Sepsis Action Taken by Nursing No Action Required General: Chronically-ill appearing young female in no acute distress. HEENT: Normal cephalic atraumatic. Pupils are equal round and reactive to light. Extraocular movements are intact. Oropharynx is pink with moist mucous membranes. No swelling of the mouth lips or tongue. Neck: Supple with a midline trachea. No meningeal signs or stiffness, no JVD or bruits. No Stridor. Chest: Clear to auscultation bilaterally. No wheezes or rhonchi. No increased work of breathing. Heart: regular rate and rhythm. Abdomen: Soft nontender, nondistended without rebound guarding or rigidity. Extremities: No cyanosis clubbing or edema. No calf tenderness or asymmetry. Fistula in the left arm with a thrill. Spine/Back. Non tender to palpation. No CVA tenderness Skin: Good turgor without rashes. Neurologic exam: Cranial nerves two through 12 are intact. Motor and sensation are intact and symmetrical throughout. Course Course 2036: The patient was evaluated in room B06. A complete history and physical exam was performed. 2131: The patient appears to be comfortable and waiting for the IV team. 2203: Upon reevaluation, the patient is resting comfortably. I discussed laboratory and radiographic results with her. She verbalized agreement of the treatment plan. The patient will be evaluated for further management and care. 3: I discussed the patient's case with Dr. Esteban, Urology. She recommends the patient be evaluated by the hospitalist because there is concern that she will not be able to dialyzed tomorrow. She is concerned the patient will not be able to wait until Saturday for her dialysis. 2254: I reviewed the patient's case with Dr. Morgan, [facility]. He will evaluate the patient for further management. Administered Medications Discontinued Medications Metoclopramide HCl (Reglan) 5 mg IV ONE ONE Stop: 08/19/19 22:03 Last Admin: 08/19/19 22:18 Dose: 5 mg Documented by: [id number] Morphine Sulfate (Morphine Sulfate) 4 mg IV NOW STA Stop: 08/19/19 22:38 Last Admin: 08/19/19 22:43 Dose: 4 mg Documented by: [id number] Medical Decision Making Differential Diagnosis Differential diagnosis includes: cardiac disease, CHF, dialysis complication, infection, electrolyte or metabolic abnormalities. Medical Records Attestation: I reviewed the patient's medical records. Home Medications Current Medication List: was personally reviewed by me Laboratory Data Attestation: I reviewed the patient's lab results. Result diagrams: 08/19/19 21:43 08/19/19 21:43 Lab Results 08/19/19 08/19/19 08/19/19 Range/Units 21:43 21:43 21:43 WBC 6.75 (4.8-10.8) K/uL RBC 2.48 L (4.2-5.4) M/uL Hgb 7.9 L (12.0-16.0) g/dL Hct 24.0 L (37-47) % MCV 96.8 (80-100) fL MCH 31.9 (25-34) pg MCHC 32.9 (32-36) g/dL RDW Std Deviation 60.5 H (36.4-46.3) fL RDW Coeff of Laith 17.3 H (11.5-14.5) % Plt Count 100 L (130-400) K/uL MPV 9.9 (7.4-10.4) fL Immature Gran % (Auto) 0.1 % Neut % (Auto) 74.5 % Lymph % (Auto) 11.3 % [place]in[place] % (Auto) 3.9 % Eos % (Auto) 9.8 % Baso % (Auto) 0.4 % Immature Gran # (Auto) 0.01 (0.00-0.02) K/uL Neut # (Auto) 5.03 (1.4-6.5) K/uL Lymph # (Auto) 0.76 L (1.2-3.4) K/uL [place]in[place] # (Auto) 0.26 (0.11-0.59) K/uL Eos # (Auto) 0.66 H (0-0.5) K/uL Baso # (Auto) 0.03 (0-0.2) K/uL Ovalocytes 1+ Schistocytes Occasional Sodium 138 (136-145) mmol/L Potassium 4.9 (3.5-5.1) mmol/L Chloride 100 (98-107) mmol/L Carbon Dioxide 24 (21-32) mmol/L Anion Gap 14.0 H (3-11) BUN 74 H (7-18) mg/dl Creatinine 16.00 H* (0.6-1.2) mg/dl Est Cr Clr Drug Dosing 5.9 ml/min Est GFR ( Amer) 3.0 Est GFR (Non-Af Amer) 2.6 BUN/Creatinine Ratio 4.7 L (10-20) Glucose 96 (70-99) mg/dl Calcium 8.6 (8.5-10.1) mg/dl Total Bilirubin 0.5 (0.2-1) mg/dl AST 24 (15-37) U/L ALT 31 (12-78) U/L Alkaline Phosphatase 132 H (45-117) U/L Total Protein 7.4 (6.4-8.2) gm/dl Albumin 3.4 (3.4-5.0) gm/dl Globulin 4.0 (2.5-4.0) gm/dl Albumin/Globulin Ratio 0.9 (0.9-2) Lipase 103 (73-393) U/L HCG, Qual Negative (Negative) Imaging Data Radiologist's Impression: Radiology results as stated below per my review and the radiologist's interpretation: XR chest 1V portable CLINICAL HISTORY: Shortness of breath. COMPARISON STUDY: Chest CT May 23, 2019 and chest radiograph August 14, 2019. FINDINGS: Moderate cardiomegaly is noted. There are suspected trace bilateral pleural effusions. There is no pneumothorax. Interstitial thickening has s lightly increased and favors pulmonary edema. IMPRESSION: 1. Slight increase in interstitial thickening suggestive of pulmonary edema. 2. Trace bilateral pleural effusions. 3. Moderate cardiomegaly. ACT 112: Negative or not required by law. Electronically signed by: Sebastian Mcclain M.D. 08/19/2019 9:03 PM ECG Data Attestation: I personally reviewed and interpreted this ECG as follows: Indication: + chest pain Rate (beats per minute): 92 Rhythm: + normal sinus ECG Intervals/blocks: + Prolonged QT (502) ECG ST segments: no ST depression and no ST elevation ECG Findings: + PVCs (occasional) Comparison ECG Date: from (08/14/2019) Change: the following changes noted Additional Comments: QT is less prolonged than before. Blood Pressure Blood Pressure Findings: Elevated blood pressure Blood Pressure Disposition: further management by hospitalist [facility] Narrative This patient comes in as scribed above she is complained of nausea she also has chest pain she is here frequently with similar type complaints. She is a dialysis patient and is supposed to get dialysis today but because of the holiday did not. She has a fistula in her left arm. EKG and chest x-ray was obtained. I ordered multiple blood testing. She was reassessed frequently. Her chest x-ray shows some possible mild fluid/CHF. Her EKG does not show any significant arrhythmia or any peaked T waves. Her potassium is not significantly elevated is 4.9. She did receive some Reglan which helped the nausea but she said it made her feel spacey. She was given 1 dose of IV morphine. I did discuss the case with her interactive developer Dr. Esteban. I was trying to get her lined up with dialysis for tomorrow. Dr. Esteban felt that she would not be able to likely get dialysis tomorrow if she was willing to drive the [place]. The patient says she cannot. Both Dr. Esteban and and I am concerned that if she waits till Saturday she will be in extremis as her potassium is already 4.9 and she may have some symptoms of fluid overload. She recommended we observe her in the hospital and she gets dialyzed here tomorrow. I discussed case with Dr. Morgan who saw her in the ER for these measures. Impression & Plan Nausea, Chest pain, End-stage renal disease (ESRD), CHF (congestive heart failure), Prolonged QT interval Discharge Plan Visit Data Chief Complaint: Hypertension Stated Complaint: VOMITING HIGH BP DIZZY ED Provider: Andrea Diaz Discharge Problem: Nausea, Chest pain, End-stage renal disease (ESRD), CHF (congestive heart failure), Prolonged QT interval Patient Disposition: Being Evaluated by Hospitalist Forms Stand Alone Forms: [facility] Ready To Travel Prescriptions Prescriptions: No Action amlodipine [Norvasc] 5 mg tablet 10 mg PO QAM RF: 0 carvedilol [Coreg] 25 mg tablet 25 mg PO BID RF: 0 loratadine [Claritin] 10 mg Tablet 10 mg PO DAILY PRN (Reason: Allergy Symptoms) RF: 0 prochlorperazine maleate [Compazine] 10 mg tablet 10 mg PO QID PRN (Reason: Nausea And Vomiting) RF: 0 trazodone 100 mg tablet 150 mg PO HS RF: 0 diclofenac sodium 1 % gel 2 g TOPICAL DIRECTED RF: 0 sumatriptan succinate [Imitrex] 50 mg tablet 50 mg PO DIRECTED MDD 100 MG/24 HOURS PRN (Reason: Migraine Headache) RF: 0 albuterol sulfate [Ventolin HFA] 90 mcg/actuation HFA aerosol inhaler 2 puff Inhalation QID PRN (Reason: Shortness Of Breath Or Wheezing) RF: 0 calcium acetate 667 mg capsule 3,335 mg PO TIDM RF: 0 calcium acetate 667 mg capsule 2,668 mg PO DIRECTED RF: 0 gabapentin [Neurontin] 400 mg capsule 800 mg PO HS RF: 0 calcium acetate 667 mg capsule 1,334 mg PO DIRECTED RF: 0 gabapentin [Neurontin] 400 mg Capsule 400 mg PO DIRECTED RF: 0 sevelamer carbonate [Renvela] 800 mg tablet 1,600 mg PO TIDM RF: 0 famotidine [Pepcid] 40 mg Tablet 40 mg PO QAM RF: 0 sertraline [Zoloft] 100 mg tablet 100 mg PO QAM RF: 0 cinacalcet [Sensipar] 60 mg tablet 60 mg PO QDD RF: 0 losartan 50 mg Tablet 50 mg PO QAM 30 Days Qty: 30 RF: 0 Referrals Referrals: Adolph Aldridge MD [Primary Care Provider] - Discharge Problem: Chest pain Qualifiers: Chest pain type: unspecified Qualified Code(s): R07.9 - Chest pain, unspecified CHF (congestive heart failure) Qualifiers: Heart failure type: unspecified Heart failure chronicity: unspecified Qualified Code(s): I50.9 - Heart failure, unspecified The scribe's documentation has been prepared under my direction and personally reviewed by me in its entirety. I confirm that the note above accurately reflects all work, treatment, procedures, and medical decision making performed by me.
[2019-08-19 21:56] LABS: Basophils # (auto) 0.03 K/uL (0-0.2); Basophils % (auto) 0.4 %; Eosinophils # (auto) 0.66 K/uL (0-0.5); Eosinophils % (auto) 9.8 %; Hemoglobin 7.9 g/dL (12.0-16.0); Immature Granulocytes # (auto) 0.01 K/uL (0.00-0.02); Immature Granulocytes % (auto) 0.1 %; Lymphocytes # (auto) 0.76 K/uL (1.2-3.4); Lymphocytes % (auto) 11.3 %; Mean Corpuscular Hemoglobin 31.9 pg (25-34); Mean Corpuscular Hgb Conc 32.9 g/dL (32-36); Mean Corpuscular Volume 96.8 fL (80-100); Mean Platelet Volume 9.9 fL (7.4-10.4); Monocytes # (auto) 0.26 K/uL (0.11-0.59); Monocytes % (auto) 3.9 %; Neutrophils # (auto) 5.03 K/uL (1.4-6.5); Neutrophils % (auto) 74.5 %; Platelet Count 100 K/uL (130-400); RDW Coefficient of Variation 17.3 % (11.5-14.5); RDW Standard Deviation 60.5 fL (36.4-46.3); Red Blood Count 2.48 M/uL (4.2-5.4); White Blood Count 6.75 K/uL (4.8-10.8)
[2019-08-19] MEDS ORDERED: METOCLOPRAMIDE HCL INJ 5 MG/ML 2 ML VIAL IV ONE (22:02)
[2019-08-19 22:18] LABS: Pregnancy Test, Serum Negative (Negative)
[2019-08-19 22:27] LABS: Albumin Globulin Ratio 0.9 (0.9-2); Albumin Level 3.4 gm/dl (3.4-5.0); BUN Creatinine Ratio 4.7 (10-20); Bilirubin,Total 0.5 mg/dl (0.2-1); Calcium 8.6 mg/dl (8.5-10.1); Creatinine Clr Calc Pharmacy 5.9 ml/min; Est GFR (Non-African American) 2.6; Potassium 4.9 mmol/L (3.5-5.1); Total Protein 7.4 gm/dl (6.4-8.2)
[2019-08-19] MEDS ORDERED: MoRPHine SULFATE 4 MG/ML 1 ML CARP\\VIAL IV STA (22:37)
[2019-08-19 22:49] LABS: Ovalocytes 1+; Schistocytes Occasional
[2019-08-19] MEDS ORDERED: carvediloL 25 MG TAB PO ONE (23:37)
[2019-08-19] MEDS ORDERED: carvediloL 12.5 MG TAB ONE (23:55)
[2019-08-20] MEDS ORDERED: SUMAtriptan succinate 50 MG TAB PO PRN (01:14)
[2019-08-20] MEDS ORDERED: LORATADINE 10 MG TAB PO PRN (01:14)
[2019-08-20] MEDS ORDERED: CALCIUM ACETATE 667 MG CAP PO PRN ×2 (01:14)
[2019-08-20] MEDS ORDERED: ALBUTEROL HFA 8 GM INHALER INH PRN (01:14)
[2019-08-20] MEDS ORDERED: NITROGLYCERIN SL 0.4 MG/TAB TAB SL PRN (01:14)
[2019-08-20] MEDS ORDERED: ACETAMINOPHEN 325 MG TAB PO PRN ×2 (01:14→09:04)
--- NOTE | 2019-08-20 02:13 | History and Physical Report ---
DATE OF ADMISSION: 08/19/2019 CHIEF COMPLAINT: Missed dialysis, hypertensive urgency. HISTORY OF PRESENT ILLNESS: This is a 33-year-old female with past medical history significant for end-stage renal disease, history of peritoneal dialysis, currently on hemodialysis, history of FSGS, status post failed renal transplantation, type 2 diabetes diet controlled, mood disorder, history of umbilical hernia, chronic anemia, baseline hemoglobin of 7-9, history of migraines, ongoing tobacco abuse, who was recently in the hospital for missed dialysis, depression, shortness of breath and hypertensive urgency. She was seen by psychiatry and nephrology at that time and she was given dialysis and losartan was added at the time of discharge, trazodone given and advised to take Zoloft. The patient says she is taking her medications and trazodone was increased to 150 mg p.o. at bedtime by her PCP. She says the Saturday dialysis was postponed to Saturday and she forgot about it, she missed the dialysis on Saturday and she is not feeling well, having some headache, chest pain, shortness of breath on exertion and she came to the hospital and systolic blood pressure was in 200s and she was given morphine and Reglan in the ER and currently her chest pain resolved. She says she vomited twice today and had 2 diarrheal episodes, but she is no longer nauseous now. Denies any blood in the vomitus. Denies any bloody stools or black stools. Denies any abdominal pain. No blurred visions, no earache, no runny nose, no sore throat. Appetite is so-so, swallows okay. No fever, chills, no cough. No swelling in the legs. ALLERGIES: CEFACLOR, AMOXICILLIN, CLAVULANIC ACID. PAST MEDICAL HISTORY: As mentioned above. PAST SURGICAL HISTORY: Arteriovenous anastomosis, , colonoscopy, left heart catheterization, cystoscopy, EGDs with endoscopic ultrasound, insertion of tunneled catheter, knee arthroscopy, laparoscopic cholecystectomy, LASIK surgery, ligation of oviducts, removal of the tunneled catheter, renal biopsy, transplantation of kidney. MEDICATIONS: Currently, the patient is on losartan 50 mg p.o. daily, Tylenol 325 mg p.o. q. 6 p.r.n., trazodone 150 mg p.o. at bedtime, cyclobenzaprine 5 mg p.o. q. 8 hours p.r.n., albuterol 2 puffs inhalation q.i.d. p.r.n., amlodipine 10 mg p.o. a.m., calcium acetate 3335 mg p.o. t.i.d., calcium acetate 2668 mg p.o. at bedtime as directed, calcium acetate 1334 mg p.o. daily as directed, Coreg 25 mg p.o. b.i.d., Sensipar 60 mg p.o. daily, diclofenac sodium 2 grams topical as directed, Pepcid 40 mg p.o. a.m., gabapentin 800 mg p.o. at bedtime, gabapentin 400 mg as directed, Claritin 10 mg p.o. daily p.r.n., losartan 50 mg p.o. daily, Compazine 10 mg p.o. q.i.d. p.r.n., Zoloft 100 mg p.o. a.m.,Renvela 1600 mg p.o. t.i.d., Imitrex p.r.n., trazodone 150 mg p.o. at bedtime. FAMILY HISTORY: Significant for: Mother had diabetes, hyperthyroidism. Father has Crohn's disease. Brother has heart disorder, at age of 19 months only to working chambers, also with esophageal problems. Sister has hypertension, hypothyroidism. Maternal grandfather has hyperlipidemia. Maternal grandmother has hypertension. Paternal grandfather has lupus. SOCIAL HISTORY: . Smokes half pack a day for 11 years. No alcohol use, no drug use. REVIEW OF SYMPTOMS: As per HPI. Rest of review of systems negative. PHYSICAL EXAMINATION: GENERAL: The patient is obese, not in acute distress. VITAL SIGNS: Temperature 36.9, pulse 112, respiratory rate 20, blood pressure 215/136, oxygen 98% on room air. HEENT: No pallor, no icterus. Pupils equal, round, reactive to light. NECK: No JVD, no neck masses, no carotid bruits. CARDIOVASCULAR: S1, S2 heard, regular rate and rhythm, no murmur, no gallop. RESPIRATORY SYSTEM: Normal AP diameter. No accessory muscle use. Mild bibasilar crackles. No wheezing. ABDOMEN: Soft, bowel sounds present, nontender. No distention. CENTRAL NERVOUS SYSTEM: Alert and oriented. Nonfocal. EXTREMITIES: No edema, no erythema. LABORATORY DATA: WBC 6.7, hemoglobin 7.9, hematocrit 24, platelets 100. Sodium 138, potassium 4.9, chloride 100, bicarbonate 24, BUN 74, creatinine 16, glucose 96, calcium 8.6, total bilirubin 0.5, AST 24, ALT 31, alkaline phosphatase 132, lipase 103. HCG negative. Chest x-ray, slightly increasing interstitial thickness, history of pulmonary edema, trace bilateral pleural effusion, moderate cardiomegaly. EKG: Sinus rhythm with fusion complexes, prolonged QTC at 502. ASSESSMENT AND PLAN: This is a 33-year-old female with end-stage renal disease on hemodialysis, who comes with missed dialysis and not feeling well and found to have hypertensive urgency. 1. End-stage renal disease, on hemodialysis, medical nonadherence. Her Saturday dialysis was postponed to Saturday and she forgot about it. Potassium levels okay, but creatinine 16. Nephrology notified by the ER. We are going to admit her to the hospital for possible dialysis in a.m. Follow the labs. Needs re-counseling to not to miss dialysis 2. Hypertensive urgency. Blood pressure 220/120. She says she is taking her medications regularly, probably from missed dialysis and hx of noncompliance with medications on last admission, but this time she says she is taking. We will give Coreg tonight's dose and continue her home medication of Coreg with losartan and amlodipine. We will place her on IV Labetalol p.r.n. and IV hydralazine p.r.n., monitor in tele floor and monitor blood pressure. 3. Sleep disorder, currently on trazodone 150 mg at bedtime and Zoloft 100 mg p.o. daily. The patient says she is still not sleeping well, because neighbors are disturbing her with loud noises. 4. Prolonged QT, seen on EKG. QTC around 500, avoid QT prolonging drugs. 5. Shortness of breath, chest x-ray showed some congestion, possibly from missed dialysis. Plan for dialysis in a.m., saturating okay on room air. 6. Anemia of end-stage renal disease. Hemoglobin 7.9, last admission, she received 1 unit of PRBC. We will follow the labs in a.m. 7. Diet-controlled diabetes. We will follow the blood sugars. 8. Depression. Currently on Zoloft. Denies any suicidal ideation. 9. Deep venous thrombosis prophylaxis, sequential compression devices for now. 10. Disposition: Monitor in the tele floor. Level 1 full code. MTDD
[2019-08-20 05:30] LABS: Hematocrit (blood only) 22.2 % (37-47); Hemoglobin 7.2 g/dL (12.0-16.0); Mean Corpuscular Hgb Conc 32.4 g/dL (32-36); Mean Corpuscular Volume 95.7 fL (80-100); RDW Coefficient of Variation 17.2 % (11.5-14.5); RDW Standard Deviation 59.6 fL (36.4-46.3); Red Blood Count 2.32 M/uL (4.2-5.4); White Blood Count 4.96 K/uL (4.8-10.8)
[2019-08-20 05:32] LABS: Mean Platelet Volume 9.7 fL (7.4-10.4); Platelet Count 76 K/uL (130-400)
[2019-08-20 05:54] LABS: Basophils # (auto) 0.01 K/uL (0-0.2); Basophils % (auto) 0.2 %; Eosinophils # (auto) 0.44 K/uL (0-0.5); Eosinophils % (auto) 8.9 %; Immature Granulocytes # (auto) 0.02 K/uL (0.00-0.02); Immature Granulocytes % (auto) 0.4 %; Lymphocytes # (auto) 0.75 K/uL (1.2-3.4); Lymphocytes % (auto) 15.1 %; Monocytes # (auto) 0.27 K/uL (0.11-0.59); Monocytes % (auto) 5.4 %; Neutrophils # (auto) 3.47 K/uL (1.4-6.5); RBC Morphology Unremarkable
[2019-08-20 05:58] LABS: BUN Creatinine Ratio 4.8 (10-20); Calcium 8.1 mg/dl (8.5-10.1); Creatinine Clr Calc Pharmacy 5.7 ml/min; Est GFR (African American) 2.9; Est GFR (Non-African American) 2.5; Magnesium 2.5 mg/dl (1.8-2.4); Potassium 5.4 mmol/L (3.5-5.1)
[2019-08-20] MEDS ORDERED: HEPARIN SOD (PORCINE) 1000 UNIT/ML 10 ML VIAL IV ONE (07:56)
[2019-08-20] MEDS ORDERED: SODIUM CHLORIDE 0.9% 1000ML 1,000 ML IV PRN (07:56)
[2019-08-20] MEDS: GABAPENTIN 400 MG CAP PO SCH ×3 (08:30→21:43)
[2019-08-20] MEDS: DICLOFENAC SOD 1% GEL 100 GM TUBE EXT SCH ×4 (08:31→21:44)
[2019-08-20] MEDS: AMLODIPINE BESYLATE 5 MG TAB PO SCH (08:31)
[2019-08-20] MEDS: FAMOTIDINE 40 MG TABLET PO SCH (08:31)
[2019-08-20] MEDS: carvediloL 25 MG TAB PO SCH ×2 (08:31→21:43)
[2019-08-20] MEDS: SERTRALINE HCL 100 MG TABLET PO SCH (08:31)
[2019-08-20] MEDS: LOSARTAN POTASSIUM 50 MG TAB PO SCH (08:31)
[2019-08-20] MEDS: CALCIUM ACETATE 667 MG CAP PO SCH ×3 (08:32→16:42)
[2019-08-20] MEDS: SEVELAMER HCL 800 MG TABLET PO SCH ×3 (08:32→16:42)
[2019-08-20] MEDS ORDERED: HYDROmorphone INJ 0.5 MG/0.5 ML SYR IV ONE (09:15)
[2019-08-20] MEDS ORDERED: EPOETIN ALFA 24,000 UNITS in SYRINGE 0 ML IV SCH ×2 (11:00→12:00)
--- NOTE | 2019-08-20 11:49 | Hospitalist Progress Note ---
Date of Service August 20, 2019 Assessment & Plan (1) End-stage renal disease (ESRD): ESRD (end stage renal disease) on dialysis: Medical Non Adherence Shortness of breath -missed dialysis session as outpatient ([facility] in [place]), currently admitted for inpatient dialysis and other medical care -currently getting dialysis on 08/20/19 -dialysis management and renal medications such as calcium acetate as per nephrology Depression: -was evaluated on last hospital evaluation for missing dialysis as outpatient with contributory factor of depression -will re-evaluate -continue sertraline (Zoloft) as 100 mg daily Sleep disorder -on trazodone at night Anemia from end stage renal disease -Hemoglobin above 7 -will need to coordinate with nephrology and promoting blood counts in a dialysis patient, such as whether needing epogen or venofer with dialysis sessions -will not transfuse unless hemoglobin below 7 or if there is evidence of acute bleed poorly controlled HTN (hypertension) versus Hypertensive urgency -hypertension largely from missing dialysis often and medical nonadherence -was last discharged on amlodipine 10 mg daily, carvedilol 25 mg BID, losartan 50 mg daily -will discuss with patient whether or not she was taking medications -monitor blood pressure with dialysis -there are prn medications of IV hydralazine and IV labetalol for hypertensive blood pressures Prolonged QTc on EKG -admission QTc intervals around 500 -patient known to have prolonged QTc from prior admissions -avoid potential QT prolonging drugs Diet controlled diabetes -follow blood sugars -on gabapentin for neuropathic pain Deep venous thrombosis prophylaxis, sequential compression devices for now Subjective Patient seen and examined during dialysis session. She is drowsy. Does not appear to be willing to speak with physician at this time. Patient does not appear to be in distress. Review of Systems Review of Systems: Unobtainable due to cognitive status Physical Exam Constitutional: + obese ENMT: external ear and nose normal, oropharynx normal Neck: normal visual inspection Respiratory: normal respiratory effort Cardiovascular: Rate/Rhythm: regular rhythm Gastrointestinal (Abdomen): normal bowel sounds, soft, nontender, no hepatosplenomegaly Psychiatric: drowsy Results & Data Vital Signs (Past 12 Hours) Vital Signs Temp Pulse Pulse Resp BP BP Pulse Ox 08/20/19 11:40 66 116/77 08/20/19 11:20 68 128/91 08/20/19 11:00 69 145/89 H 08/20/19 10:40 68 141/82 H 08/20/19 10:20 68 151/103 H 08/20/19 10:00 57 L 157/104 H 08/20/19 09:40 68 170/101 H 08/20/19 09:33 36.7 C 70 70 163/106 H 08/20/19 07:23 36.6 C 77 16 194/122 H 93 08/20/19 04:25 36.9 C 77 17 185/105 H 91 08/20/19 01:10 36.8 C 80 16 187/115 H 91 08/20/19 00:45 78 18 187/116 H 95 08/19/19 23:58 94 H 17 205/132 H 95
[2019-08-20] MEDS: HEPARIN SOD (PORCINE) 1000 UNIT/ML 10 ML VIAL IV SCH ×2 (11:55→11:56)
[2019-08-20] MEDS ORDERED: IRON SUCROSE 100 MG in 0.9 % SODIUM CHLORIDE 100 ML IV SCH (12:00)
[2019-08-20] MEDS ORDERED: HYDROmorphone INJ 0.5 MG/0.5 ML SYR IV STA (16:19)
[2019-08-20] MEDS: HydrALAZINE HCL 20 MG/ML VIAL IV PRN ×2 (16:41→23:21)
[2019-08-20] MEDS ORDERED: PROMETHAZINE HCL 6.25 MG in SODIUM CHLORIDE 0.9% 50 ML IV PRN (16:59)
[2019-08-20] MEDS: PROCHLORPERAZINE MALEATE 10 MG TAB PO PRN (18:00)
--- NOTE | 2019-08-20 18:43 | Nephrology Consultation ---
Date of Consultation August 20, 2019 Assessment & Plan (1) End-stage renal disease (ESRD): nonadherent w/ dialysis -- markedly worse past 6 weeks or so w/ more hospital encounters this timeframe -HD today -HD tomorrow -HD Saturday if in house -agree w/ ongoing psych eval/ eval of psychosocial factors limiting her ability to care for herself Present on Admission?: Yes (2) Hypertension: improved on hd; increasing again post tx -repeated dialysis will help as will fluid and sodium limits -cont coreg, amlodipine, cozaar curretn dosesprn hydralazine, prn labetalol Present on Admission?: Yes (3) Anemia: got 39095 units epo today once sbp on dialysis controlled; also had 100 mg venofer x 1 -will give another 10982 units tomorrow -transferrin satn pending -some anemia should improve w/ fluid removal -daily hgb pls Present on Admission?: Yes History of Present Illness Reason for Consultation: ESRD Requesting Physician: Dr Morgan Attending Physician: Davian Garcia MD History of Present Illness 33 y/o F whom I'm asked to see for dialysis needs after she presented last evening with headaches, chest discomfort and exertional dyspnea after missing 2 dialysis txs. PMH includes ESRD on chronic in center HD w/ hx of poor adherence to txs, HTN, FSGS s/p living related renal txplt which failed d/t noncompliance w/ meds, chronic anemia c/b occasional vaginal bleeding, ongoing tobacco abuse, migraines, mood disorder. She dialyzes at [facility] under my care. She had had repeated admissions to [facility] and once recently to [facility] for symptomatic anemia, volume overload due to not taking meds/not doing outpatient dialysis. Her most recent dialysis prior to presentation yesterday was on 08/14 as an outpatient. Her sbp was in 200s on presentation; her chest pain improved w/ morphine. I wrote for dialysis this am w/ up to 5 L fluid removal : she developed cramps and tolerated 3.6L UF. When I saw her this am, her GARNETT and sob were better but ongoing retrosternal chest discomfort w/ sbp in 140s. discharged 08/09 after 48 hr admission here : prior to that had no called/ no showed preceding 9 outpatient dialysis treatments. [employer] evaluated her in May for vaginal bleeding as well; to see them in f/u in Aug 2019. Allergies Allergy/AdvReac Type Severity Reaction Status Date / Time cefaclor Allergy Intermediate Rash Verified 08/19/19 20:50 amoxicillin AdvReac Mild VOMITING Verified 08/19/19 20:50 clavulanic acid AdvReac Mild VOMITING Verified 08/19/19 20:50 Home Medications Home Medications Medication Instructions Recorded Confirmed Type albuterol sulfate [Ventolin HFA] 2 puff INHALATION QID PRN 05/30/18 08/19/19 History calcium acetate 2,668 mg PO DIRECTED 05/30/18 08/19/19 History calcium acetate 3,335 mg PO TIDM 05/30/18 08/19/19 History sumatriptan succinate [Imitrex] 50 mg PO DIRECTED PRN MDD 100 05/30/18 08/19/19 History MG/24 HOURS amlodipine [Norvasc] 10 mg PO QAM 11/03/18 08/19/19 History gabapentin [Neurontin] 800 mg PO HS 11/26/18 08/19/19 History calcium acetate 1,334 mg PO DIRECTED 01/24/19 08/19/19 History gabapentin [Neurontin] 400 mg PO DIRECTED 01/24/19 08/19/19 History famotidine [Pepcid] 40 mg PO QAM 04/21/19 08/19/19 History sevelamer carbonate [Renvela] 1,600 mg PO TIDM 04/21/19 08/19/19 History carvedilol [Coreg] 25 mg PO BID 06/06/19 08/19/19 History sertraline [Zoloft] 100 mg PO QAM 06/12/19 08/19/19 History loratadine [Claritin] 10 mg PO DAILY PRN 06/17/19 08/19/19 History cinacalcet [Sensipar] 60 mg PO QDD 07/22/19 08/19/19 History prochlorperazine maleate 10 mg PO QID PRN 07/26/19 08/19/19 History [Compazine] losartan 50 mg PO QAM 30 Days #30 tab 08/09/19 08/19/19 Rx trazodone 150 mg PO HS 08/14/19 08/19/19 History diclofenac sodium 2 g TOPICAL DIRECTED 08/19/19 08/19/19 History Patient History Medical History Anemia Anxiety and depression Asthma "BEEN A WHILE" SINCE USING LAST RESCUE INHALER Bipolar disorder CKD (chronic kidney disease) stage V requiring chronic dialysis (Chronic) Depression (Chronic) Dialysis patient SATURDAY/SAT/SATURDAY AT [facility] DM2 (diabetes mellitus, type 2) (Chronic) CONTROLLED WITH DIET AND EXERCISE Fistula LEFT ARM FSGS (focal segmental glomerulosclerosis) (Chronic) DX INITIALLY 2012 (CAUSING ESRD 2012) GERD (gastroesophageal reflux disease) HTN (hypertension) (Chronic) Migraine Peripheral neuropathy Peritoneal dialysis catheter in place Prolonged QT interval (Acute) Restless leg syndrome Surgical History H/O eye surgery (Resolved) LASER SURGERY H/O hernia repair (Resolved) ABDOMINAL WALL H/O knee surgery (Resolved) LEFT KNEE X 2 H/O tubal ligation (Resolved) H/O: (Resolved) X 2 History of cardiac cath 2016 NO STENTS History of cholecystectomy (Resolved) History of colonoscopy History of tooth extraction Kidney transplant recipient 2013 AT [facility] Family History Grandmother Hx of CABG Mother Diabetes Father Crohn's disease Grandfather (Maternal) Diabetes Uncle Diabetes Social History Preferred Language: Croatian Communication Ability: Effective Retort Firer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 Beliefs That Will Affect Care: None marital status: Current Living Situation: Family and Significant Other Current Living Situation Comment: [facility] current occupational status: employed Other Information That Helps Us Care for You: No Feels Safe at Home: Yes Safety Concerns: Feels Safe At This Time Smoking Status: Current every day smoker Tobacco Type: cigarettes ; Cigarettes Per Day: 2 ; Do You Dip or Chew Tobacco: No ; Second Hand Exposure: Yes ; Tobacco Cessation Education Requested by Patient: No Hx Alcohol Use: No Hx Substance Use: No Review of Systems Review of Systems: All systems reviewed & are unremarkable except as noted in HPI & below Constitutional: + fatigue and + weakness Eyes: no worsening vision Ear, Nose, Mouth, Throat: no dry mouth Respiratory: as per Subjective / HPI, + dyspnea and + dyspnea on exertion Cardiovascular: as per Subjective / HPI, + chest pain and + dyspnea on exertion; no radiating jaw, neck or arm pain and no edema Genitourinary: + problem reported (anuric) Psychiatric: + behavioral changes and + depression Endocrine: + fatigue Hematologic / Lymphatic: no easy bleeding Physical Exam Constitutional: well developed and well nourished; no acute distress (on RA ) Eyes: EOM intact bilaterally ENMT: Ears: no external ear abnormality Nose: no external nose abnormality Mouth: + dry oral mucous membranes Neck: no nuchal rigidity Respiratory: normal respiratory effort Auscultation: lungs clear to aus cultation bilaterally and + diminished lung sounds Cardiovascular: Rate/Rhythm: regular rate and regular rhythm Extremities: + edema (at most trace) and + AV fistula (+ t/b) Gastrointestinal (Abdomen): Inspection/Auscultation: normal bowel sounds; abdomen not distended Percussion/Palpation: abdomen soft; abdomen nontender Musculoskeletal: Extremities: strength 5/5 throughout Skin: no rashes, warm and dry + pallor Neurologic: sandy, fluent speech, no tremor Psychiatric: Orientation: alert and oriented x 3 Speech: normal rate/rhythm/volume of speech Affect: + depressed affect Results & Data Vital Signs (Past 12 Hours) Vital Signs Temp Pulse Pulse Pulse Resp BP BP 08/20/19 15:36 37.1 C 74 18 191/100 H 08/20/19 12:50 36.8 C 71 71 153/92 H 153/92 H 08/20/19 12:40 69 131/72 08/20/19 12:20 67 130/85 08/20/19 12:00 69 119/84 08/20/19 11:40 66 116/77 08/20/19 11:20 68 128/91 08/20/19 11:00 69 145/89 H 08/20/19 10:40 68 141/82 H 08/20/19 10:20 68 151/103 H 08/20/19 10:00 57 L 157/104 H 08/20/19 09:40 68 170/101 H 08/20/19 09:33 36.7 C 70 70 163/106 H 08/20/19 07:23 36.6 C 77 16 194/122 H Pulse Ox 08/20/19 15:36 93 12/26/19 12:50 08/20/19 12:40 08/20/19 12:20 08/20/19 12:00 08/20/19 11:40 08/20/19 11:20 08/20/19 11:00 08/20/19 10:40 08/20/19 10:20 08/20/19 10:00 08/20/19 09:40 08/20/19 09:33 08/20/19 07:23 93 Laboratory Results 08/20/19 05:20 08/20/19 05:20 Diagnostic Findings cxr 1. Slight increase in interstitial thickening suggestive of pulmonary edema. 2. Trace bilateral pleural effusions. 3. Moderate cardiomegaly. (1) Hypertension Hypertension type: essential hypertension Qualified Code(s): I10 - Essential (primary) hypertension (2) Anemia Anemia type: unspecified type Qualified Code(s): D64.9 - Anemia, unspecified
--- NOTE | 2019-08-20 18:44 | Dialysis Progress Note ---
Date of Service August 20, 2019 Assessment & Plan (1) End-stage renal disease (ESRD): nonadherent w/ dialysis -- markedly worse past 6 weeks or so w/ more hospital encounters this timeframe; recommend frequent dialysis w/ aggressive fluid removal in house -HD today > tolerated only 3.6L off -HD tomorrow -HD Saturday if in house -agree w/ ongoing psych eval/ eval of psychosocial factors limiting her ability to care for herself, to get to outpatient dialysis treatments (2) Hypertension: improved on hd; increasing again post tx -repeated dialysis will help as will fluid and sodium limits -cont coreg, amlodipine, cozaar curretn dosesprn hydralazine, prn labetalol (3) Anemia: got 87945 units epo today once sbp on dialysis controlled; also had 100 mg venofer x 1 -will give another 13649 units tomorrow -transferrin satn pending -some anemia should improve w/ fluid removal -daily hgb pls Subjective seen on hd this am; tolerating tx (though later stopped d/t cramps); some chest pain at rest Review of Systems Review of Systems: All systems reviewed & are unremarkable except as noted in HPI & below Physical Exam Constitutional: well developed and well nourished; no acute distress (on RA ) Eyes: EOM intact bilaterally ENMT: Ears: no external ear abnormality Nose: no external nose abnormality Mouth: + dry oral mucous membranes Neck: no nuchal rigidity Respiratory: normal respiratory effort Auscultation: lungs clear to auscultation bilaterally and + diminished lung sounds Cardiovascular: Rate/Rhythm: regular rate and regular rhythm Extremities: + edema (at most trace) and + AV fistula (+ t/b) Gastrointestinal (Abdomen): Inspection/Auscultation: normal bowel sounds; abdomen not distended Percussion/Palpation: abdomen soft; abdomen nontender Musculoskeletal: Extremities: strength 5/5 throughout Skin: no rashes, warm and dry + pallor Psychiatric: Orientation: alert and oriented x 3 Speech: normal rate/rhythm/volume of speech Affect: + depressed affect Results & Data Vital Signs (Past 12 Hours) Vital Signs Temp Pulse Pulse Pulse Resp BP BP 08/20/19 15:36 37.1 C 74 18 191/100 H 08/20/19 12:50 36.8 C 71 71 153/92 H 153/92 H 08/20/19 12:40 69 131/72 08/20/19 12:20 67 130/85 08/20/19 12:00 69 119/84 08/20/19 11:40 66 116/77 08/20/19 11:20 68 128/91 08/20/19 11:00 69 145/89 H 08/20/19 10:40 68 141/82 H 08/20/19 10:20 68 151/103 H 08/20/19 10:00 57 L 157/104 H 08/20/19 09:40 68 170/101 H 08/20/19 09:33 36.7 C 70 70 163/106 H 08/20/19 07:23 36.6 C 77 16 194/122 H Pulse Ox 08/20/19 15:36 93 08/20/19 12:50 08/20/19 12:40 08/20/19 12:20 08/20/19 12:00 08/20/19 11:40 08/20/19 11:20 08/20/19 11:00 08/20/19 10:40 08/20/19 10:20 08/20/19 10:00 08/20/19 09:40 08/20/19 09:33 08/20/19 07:23 93 Laboratory Results reveiwed (1) Hypertension Hypertension type: essential hypertension Qualified Code(s): I10 - Essential (primary) hypertension (2) Anemia Anemia type: unspecified type Qualified Code(s): D64.9 - Anemia, unspecified
[2019-08-20] MEDS: LABETALOL HCL IV 5 MG/ML 20ML IV PRN (19:42)
[2019-08-20] MEDS: TRAZODONE HCL 50 MG TAB PO SCH (21:43)
[2019-08-20] MEDS: SENSIPAR~ORDER AWAITING ACTION SCH (23:13)
[2019-08-20] MEDS: HYDROmorphone INJ 0.5 MG/0.5 ML SYR IV PRN (23:21)
[2019-08-21] MEDS: LABETALOL HCL IV 5 MG/ML 20ML IV PRN (03:18)
[2019-08-21] MEDS: PROCHLORPERAZINE MALEATE 10 MG TAB PO PRN ×3 (04:30→21:58)
[2019-08-21] MEDS ORDERED: cloNIDine HCL 0.1 MG TAB PO STA (05:19)
[2019-08-21] MEDS: HydrALAZINE HCL 20 MG/ML VIAL IV PRN ×2 (06:43→20:31)
[2019-08-21] MEDS ORDERED: HEPARIN SOD (PORCINE) 1000 UNIT/ML 10 ML VIAL IV ONE (07:00)
[2019-08-21] MEDS ORDERED: EPOETIN ALFA 20,000 UNITS/ML VIAL IV ONE (07:00)
[2019-08-21] MEDS ORDERED: SODIUM CHLORIDE 0.9% 1000ML 1,000 ML IV PRN (07:00)
[2019-08-21] MEDS ORDERED: EPOETIN ALFA 24,000 UNITS in SYRINGE 0 ML IV SCH (07:00)
[2019-08-21] MEDS: HYDROmorphone INJ 0.5 MG/0.5 ML SYR IV PRN ×3 (07:47→23:32)
[2019-08-21] MEDS: CALCIUM ACETATE 667 MG CAP PO SCH ×3 (07:50→17:15)
[2019-08-21] MEDS: SENSIPAR~ORDER AWAITING ACTION SCH ×3 (07:50→23:05)
[2019-08-21] MEDS: SEVELAMER HCL 800 MG TABLET PO SCH ×3 (07:50→17:15)
[2019-08-21] MEDS: GABAPENTIN 400 MG CAP PO SCH ×3 (07:51→19:49)
[2019-08-21] MEDS: FAMOTIDINE 40 MG TABLET PO SCH (07:51)
[2019-08-21] MEDS: LOSARTAN POTASSIUM 50 MG TAB PO SCH (07:52)
[2019-08-21] MEDS: carvediloL 25 MG TAB PO SCH ×2 (07:53→19:48)
[2019-08-21] MEDS: AMLODIPINE BESYLATE 5 MG TAB PO SCH (07:53)
[2019-08-21] MEDS: DICLOFENAC SOD 1% GEL 100 GM TUBE EXT SCH ×4 (07:54→19:51)
[2019-08-21 08:35] LABS: Basophils # (auto) 0.01 K/uL (0-0.2); Basophils % (auto) 0.2 %; Eosinophils # (auto) 0.51 K/uL (0-0.5); Eosinophils % (auto) 8.7 %; Hematocrit (blood only) 23.1 % (37-47); Hemoglobin 7.5 g/dL (12.0-16.0); Immature Granulocytes # (auto) 0.04 K/uL (0.00-0.02); Immature Granulocytes % (auto) 0.7 %; Lymphocytes # (auto) 0.83 K/uL (1.2-3.4); Lymphocytes % (auto) 14.2 %; Mean Corpuscular Hgb Conc 32.5 g/dL (32-36); Mean Corpuscular Volume 95.5 fL (80-100); Mean Platelet Volume 10.1 fL (7.4-10.4); Monocytes % (auto) 6.9 %; Neutrophils # (auto) 4.04 K/uL (1.4-6.5); Neutrophils % (auto) 69.3 %; Platelet Count 112 K/uL (130-400); RDW Coefficient of Variation 17.1 % (11.5-14.5); Red Blood Count 2.42 M/uL (4.2-5.4); White Blood Count 5.83 K/uL (4.8-10.8)
[2019-08-21 08:59] LABS: RBC Morphology Unremarkable
--- NOTE | 2019-08-21 08:59 | Hospitalist Progress Note ---
Date of Service August 21, 2019 Assessment & Plan (1) End-stage renal disease (ESRD): ESRD (end stage renal disease) on dialysis: Medical Non Adherence Shortness of breath -missed dialysis session as outpatient ([facility] in [place]), currently admitted for inpatient dialysis and other medical care -currently getting dialysis on 08/20/19 -dialysis management and renal medications such as calcium acetate as per nephrology Depression: -was evaluated on last hospital evaluation for missing dialysis as outpatient with contributory factor of depression -will re-evaluate -continue sertraline (Zoloft) as 100 mg daily -patient wishes to be seen by inpatient psychiatry for depression. psychiatry consult requested Sleep disorder -on trazodone at night Anemia from end stage renal disease -Hemoglobin above 7 -epogen or venofer with dialysis sessions as per nephrology -will not transfuse unless hemoglobin below 7 or if there is evidence of acute bleed poorly controlled HTN (hypertension) versus Hypertensive urgency -hypertension largely from missing dialysis often and medical nonadherence -was last discharged on amlodipine 10 mg daily, carvedilol 25 mg BID, losartan 50 mg daily -will discuss with patient whether or not she was taking medications -monitor blood pressure with dialysis -there are prn medications of IV hydralazine and IV labetalol for hypertensive blood pressures ; clonidine given in blacking wheel tender of 08/21/19 chest pain -08/20/19: patient with reproducible chest pain. will offer low dose dilaudid. Prolonged QTc on EKG -admission QTc intervals around 500 -patient known to have prolonged QTc from prior admissions -avoid potential QT prolonging drugs Diet controlled diabetes -follow blood sugars -on gabapentin for neuropathic pain Deep venous thrombosis prophylaxis, sequential compression devices for now Subjective Patient seen and examined while sitting up in the bed. denies chest pain. denies abdominal pain. no vomiting. no headache, no dizziness. awaiting dialtsis session. awaiting psychiatry Physical Exam Constitutional: + obese Eyes: PERRL, conjunctivae normal, anicteric sclerae EOM intact bilaterally ENMT: external ear and nose normal, oropharynx normal Neck: normal visual inspection Respiratory: normal respiratory effort Cardiovascular: Rate/Rhythm: regular rhythm Gastrointestinal (Abdomen): normal bowel sounds, soft, nontender, no hepatosplenomegaly Musculoskeletal: Head/Neck/Chest: normocephalic and head atraumatic Neurologic: PERRL, EOMI, accommodation nl, no face palsy, no dysarthria CN's II-XI intact bilaterally Psychiatric: A+Ox3, euthymic affect Results & Data Vital Signs (Past 12 Hours) Vital Signs Temp Pulse Pulse Resp BP Pulse Ox 08/21/19 08:04 36.7 C 78 16 168/91 H 94 08/21/19 07:15 36.7 C 70 19 200/95 H 98 08/21/19 06:30 77 200/97 H 08/21/19 03:18 197/122 H 08/21/19 03:08 36.6 C 76 19 188/101 H 95 08/21/19 00:23 36.8 C 74 19 170/90 H 94 08/20/19 23:08 192/127 H 08/20/19 21:41 76 199/115 H
[2019-08-21 09:06] LABS: Iron 138 mcg/dl (35-150); Transferrin 182 mg/dl (200-360); Transferrin Percent Saturation 54 % (15-50)
[2019-08-21] MEDS: SERTRALINE HCL 100 MG TABLET PO SCH (09:07)
[2019-08-21] MEDS: HEPARIN SOD (PORCINE) 1000 UNIT/ML 10 ML VIAL IV SCH ×3 (10:30→12:30)
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
[2019-08-21] MEDS ORDERED: LOSARTAN POTASSIUM 50 MG TAB PO ONE (18:38)
--- NOTE | 2019-08-21 18:38 | Dialysis Progress Note ---
Date of Service August 21, 2019 Assessment & Plan (1) End-stage renal disease (ESRD): nonadherent w/ dialysis -- markedly worse past 6 weeks or so w/ more hospital encounters this timeframe; recommend frequent dialysis w/ aggressive fluid removal in house -HD yesterday > tolerated only 3.6L off -HD today > got 4.3 L off -HD Saturday full treatment -agree w/ ongoing psych eval/ eval of psychosocial factors limiting her ability to care for herself, to get to outpatient dialysis treatments (2) Hypertension: improved on hd yesterday not so much today; goal is sbp 150-160s for now -repeated dialysis will help as will fluid and sodium limits -increased cozaar to 100 mg daily this evening and coreg to 37.5 mg bid -cont amlodipine, cozaar curretn dose; prn hydralazine, prn labetalol (3) Anemia: got 37792 units epo x 2 w/ each Hd tx so far; also had 100 mg venofer x 1 -will give another 85302 units tomorrow -transferrin satn pending>>54%; no further venofer -some anemia should improve w/ fluid removal and it has -daily hgb pls Subjective still w/ intermittent N, intermittent CP; stopped HD early yesterday d/t cramping; so far today no cramps; bp remains elevated Review of Systems Review of Systems: All systems reviewed & are unremarkable except as noted in HPI & below Physical Exam Constitutional: well developed and well nourished; no acute distress (on RA ) Eyes: EOM intact bilaterally ENMT: Ears: no external ear abnormality Nose: no external nose abnormality Mouth: + dry oral mucous membranes Neck: no nuchal rigidity Respiratory: normal respiratory effort Auscultation: lungs clear to auscultation bilaterally and + diminished lung sounds Cardiovascular: Rate/Rhythm: regular rate and regular rhythm Extremities: + edema (at most trace) and + AV fistula (+ t/b) Gastrointestinal (Abdomen): Inspection/Auscultation: normal bowel sounds; abdomen not distended Percussion/Palpation: abdomen soft; abdomen nontender Musculoskeletal: Extremities: strength 5/5 throughout Skin: no rashes, warm and dry + pallor Neurologic: sandy, fluent speech, no tremor Psychiatric: Orientation: alert and oriented x 3 Speech: normal rate/rhythm/volume of speech Affect: + flat affect Results & Data Vital Signs (Past 12 Hours) Vital Signs Temp Pulse Pulse Pulse Resp BP BP 08/21/19 15:14 36.7 C 75 19 180/100 H 08/21/19 14:25 37.1 C 71 174/101 H 08/21/19 13:40 72 181/86 H 08/21/19 13:20 79 174/88 H 08/21/19 13:00 74 208/112 H 08/21/19 12:40 73 217/98 H 08/21/19 12:20 72 204/97 H 08/21/19 12:00 76 173/98 H 08/21/19 11:40 71 193/96 H 08/21/19 11:20 73 187/96 H 08/21/19 11:00 73 195/100 H 08/21/19 10:40 69 168/92 H 08/21/19 10:20 74 167/102 H 08/21/19 10:00 73 182/99 H 08/21/19 09:40 71 187/105 H 08/21/19 09:27 75 213/109 H 08/21/19 09:18 36.9 C 76 08/21/19 08:04 36.7 C 78 16 168/91 H 08/21/19 07:15 36.7 C 70 19 200/95 H Pulse Ox 08/21/19 15:14 97 08/21/19 14:25 08/21/19 13:40 08/21/19 13:20 08/21/19 13:00 08/21/19 12:40 08/21/19 12:20 08/21/19 12:00 08/21/19 11:40 08/21/19 11:20 08/21/19 11:00 08/21/19 10:40 08/21/19 10:20 08/21/19 10:00 08/21/19 09:40 08/21/19 09:27 08/21/19 09:18 08/21/19 08:04 94 08/21/19 07:15 98 Laboratory Results 08/21/19 07:51 08/20/19 05:20 (1) Hypertension Hypertension type: essential hypertension Qualified Code(s): I10 - Essential (primary) hypertension (2) Anemia Anemia type: unspecified type Qualified Code(s): D64.9 - Anemia, unspecified
[2019-08-21] MEDS: TRAZODONE HCL 50 MG TAB PO SCH (19:48)
[2019-08-22] MEDS ORDERED: EPOETIN ALFA 20,000 UNITS/ML VIAL IV ONE (07:00)
[2019-08-22] MEDS ORDERED: EPOETIN ALFA 24,000 UNITS in SYRINGE 0 ML IV ONE (07:00)
[2019-08-22] MEDS ORDERED: HEPARIN SOD (PORCINE) 1000 UNIT/ML 10 ML VIAL IV ONE (07:00)
[2019-08-22] MEDS ORDERED: SODIUM CHLORIDE 0.9% 1000ML 1,000 ML IV PRN (07:00)
[2019-08-22] MEDS: SERTRALINE HCL 100 MG TABLET PO SCH (08:19)
[2019-08-22] MEDS: GABAPENTIN 400 MG CAP PO SCH ×2 (08:19→12:12)
[2019-08-22] MEDS: AMLODIPINE BESYLATE 5 MG TAB PO SCH (08:20)
[2019-08-22] MEDS: FAMOTIDINE 40 MG TABLET PO SCH (08:21)
[2019-08-22] MEDS: carvediloL 25 MG TAB PO SCH (08:21)
[2019-08-22] MEDS: DICLOFENAC SOD 1% GEL 100 GM TUBE EXT SCH ×2 (08:22→13:01)
[2019-08-22] MEDS: HYDROmorphone INJ 0.5 MG/0.5 ML SYR IV PRN (08:22)
[2019-08-22] MEDS ORDERED: LOSARTAN POTASSIUM 50 MG TAB PO SCH (09:00)
[2019-08-22 09:04] LABS: BUN Creatinine Ratio 3.3 (10-20); Calcium 9.4 mg/dl (8.5-10.1); Creatinine Clr Calc Pharmacy 15.2 ml/min; Est GFR (African American) 9.8; Est GFR (Non-African American) 8.5
[2019-08-22] MEDS: SENSIPAR~ORDER AWAITING ACTION SCH (09:23)
[2019-08-22] MEDS: CALCIUM ACETATE 667 MG CAP PO SCH ×2 (09:23→12:12)
[2019-08-22] MEDS: SEVELAMER HCL 800 MG TABLET PO SCH ×2 (09:23→12:12)
[2019-08-22] MEDS: HEPARIN SOD (PORCINE) 1000 UNIT/ML 10 ML VIAL IV SCH ×3 (09:40→13:01)
--- NOTE | 2019-08-22 10:42 | Nephrology Progress Note ---
Date of Service August 22, 2019 Assessment & Plan (1) End-stage renal disease (ESRD): nonadherent w/ dialysis -- markedly worse past 6 weeks or so w/ more hospital encounters this timeframe; recommend frequent dialysis w/ aggressive fluid removal in house -HD yesterday > got 4.3 L off -HD today to continue 4 L. Will switch to 3K bath. -agree w/ ongoing psych eval/ eval of psychosocial factors limiting her ability to care for herself, to get to outpatient dialysis treatments (2) Hypertension: improved on hd -repeated dialysis will help as will fluid and sodium limits -Continue Cozaar to 100 mg daily this evening and coreg to 37.5 mg bid -cont amlodipine, cozaar curretn dose; prn hydralazine, prn labetalol (3) Anemia: got 39748 units epo x 2 w/ each Hd tx so far; also had 100 mg venofer x 1 -will give another 79366 units today -transferrin satn pending>>54%; no further venofer -some anemia should improve w/ fluid removal and it has -daily hgb pls Subjective Patient was seen and examined while on dialysis. She is tolerating dialysis well. No shortness of breath or pain. No vomiting or diarrhea. Review of Systems Review of Systems: All systems reviewed & are unremarkable except as noted in HPI & below Physical Exam Physical Exam: General exam: Appears comfortable, no acute distress HEENT: Pupils are equal and reactive to light Neck: No JVD, neck is supple trachea is midline Respiratory system: Clear breath sounds bilaterally. Gastrointestinal: Abdomen is soft, non distended, non tender, bowel sounds are present CVS: Regular rate and rhythm. No murmurs, rubs or gallops Musculoskeletal: No joint or muscle tenderness Extremities: Non tender, no edema, peripheral pulses are present Neuro: Oriented, no tremors, no focal neurological deficits Skin: No rashes Results & Data Vital Signs (Past 12 Hours) Vital Signs Temp Pulse Pulse Pulse Resp BP BP 08/22/19 10:20 65 126/74 08/22/19 10:00 66 156/85 H 08/22/19 09:40 67 157/87 H 08/22/19 09:20 66 152/102 H 08/22/19 09:00 61 160/96 H 08/22/19 08:48 68 164/98 H 08/22/19 08:40 37.1 C 73 08/22/19 07:46 37.3 C 81 20 178/105 H 08/22/19 03:47 36.8 C 74 16 187/87 H 08/21/19 23:58 36.7 C 69 18 175/75 H Pulse Ox 08/22/19 10:20 08/22/19 10:00 08/22/19 09:40 08/22/19 09:20 08/22/19 09:00 08/22/19 08:48 08/22/19 08:40 08/22/19 07:46 94 08/22/19 03:47 96 08/21/19 23:58 92 Laboratory Results Laboratory Results - last 24 hr 08/22/19 08/22/19 07:50 07:50 Hgb 8.4 L Sodium 135 L Potassium Chloride 100 Carbon Dioxide 27 Anion Gap 8.0 BUN 20 H Creatinine 6.01 H* Est Cr Clr Drug Dosing 15.2 Est GFR ( Amer) 9.8 Est GFR (Non-Af Amer) 8.5 BUN/Creatinine Ratio 3.3 L Glucose 83 Calcium 9.4 (1) Hypertension Hypertension type: essential hypertension Qualified Code(s): I10 - Essential (primary) hypertension (2) Anemia Anemia type: unspecified type Qualified Code(s): D64.9 - Anemia, unspecified
[2019-08-22] MEDS: PROCHLORPERAZINE MALEATE 10 MG TAB PO PRN (12:12)
[2019-08-22 12:29] VITALS: O2SAT 98
[2019-08-22 13:39] VITALS: BP 139/71; TEMP 98.8
--- NOTE | 2019-08-22 14:17 | Hospitalist Progress Note ---
Date of Service August 22, 2019 Assessment & Plan (1) End-stage renal disease (ESRD): ESRD (end stage renal disease) on dialysis: Medical Non Adherence Shortness of breath -missed dialysis session as outpatient ([facility] in [place]), currently admitted for inpatient dialysis and other medical care -patient completed inpatient dialysis on 08/20/19 and on 08/21/19. discharge from hospital and patient encouraged to go to outpatient dialysis center on Saturday08/24/19 scheduled appointments 08/28/2019 11:00 AM Provider Adolph Aldridge MD Department [facility] 09/01/2019 4:10 PM Provider Adolph Aldridge MD Department [facility] Psychiatric liaison was able to schedule a psychiatric appointment at [place] on 09/03/19 at 2:45 PM for medication management of depression 09/08/2019 11:20 AM Provider Leah Nieves MD Department Nephrology, [facility] Depression: -was evaluated on last hospital evaluation for missing dialysis as outpatient with contributory factor of depression -will re-evaluate -continue sertraline (Zoloft) as 100 mg daily -patient wishes to be seen by inpatient psychiatry for depression. psychiatry consult evaluated the patient. Psychiatric liaison was able to schedule a psychiatric appointment at [place] on 09/03/19 at 2:45 PM for medication management of depression Sleep disorder -on trazodone at night Anemia from end stage renal disease -Hemoglobin above 7 -epogen / venofer with dialysis sessions as per nephrology -hemoglobin 8.2 on 08/22/19 poorly controlled HTN (hypertension) versus Hypertensive urgency -hypertension largely from missing dialysis often and medical nonadherence -blood pressures improved primarily with dialysis sessions -was last discharged on amlodipine 10 mg daily, carvedilol 25 mg BID, losartan 50 mg daily; continue as outpatient chest pain -08/20/19: patient with reproducible chest pain. Prolonged QTc on EKG -admission QTc intervals around 500 -patient known to have prolonged QTc from prior admissions -avoid potential QT prolonging drugs Diet controlled diabetes -follow blood sugars -on gabapentin for neuropathic pain Deep venous thrombosis prophylaxis, sequential compression devices for now Discharge Diagnosis: ESRD (end stage renal disease) on dialysis; shortness of breath, chest pain, Medical Non Adherence, Depression, Anemia from end stage renal disease, poorly controlled HTN (hypertension) versus Hypertensive urgency, Prolonged QTc on EKG Subjective Patient completed dialysis session. Patient breathing on room air. no shortness of breath. no vomiting. no headache. no dizziness. discharge plans discussed at length Review of Systems Review of Systems: All systems reviewed & are unremarkable except as noted in HPI & below Physical Exam Constitutional: + obese Eyes: PERRL, conjunctivae normal, anicteric sclerae EOM intact bilaterally ENMT: external ear and nose normal, oropharynx normal Neck: normal visual inspection Respiratory: normal respiratory effort Cardiovascular: Rate/Rhythm: regular rhythm Gastrointestinal (Abdomen): normal bowel sounds, soft, nontender, no hepat osplenomegaly Musculoskeletal: Head/Neck/Chest: normocephalic and head atraumatic Neurologic: PERRL, EOMI, accommodation nl, no face palsy, no dysarthria CN's II-XI intact bilaterally Psychiatric: A+Ox3, euthymic affect Results & Data Vital Signs (Past 12 Hours) Vital Signs Temp Pulse Pulse Pulse Resp BP BP 08/22/19 12:00 37.1 C 66 139/71 08/22/19 11:45 37.2 C 78 19 151/76 H 08/22/19 11:20 68 125/79 08/22/19 11:00 69 136/79 08/22/19 10:40 66 119/76 08/22/19 10:20 65 126/74 08/22/19 10:00 66 156/85 H 08/22/19 09:40 67 157/87 H 08/22/19 09:20 66 152/102 H 08/22/19 09:00 61 160/96 H 08/22/19 08:48 68 164/98 H 08/22/19 08:40 37.1 C 73 08/22/19 07:46 37.3 C 81 20 178/105 H 08/22/19 03:47 36.8 C 74 16 187/87 H Pulse Ox 08/22/19 12:00 08/22/19 11:45 98 08/22/19 11:20 08/22/19 11:00 08/22/19 10:40 08/22/19 10:20 08/22/19 10:00 08/22/19 09:40 08/22/19 09:20 08/22/19 09:00 08/22/19 08:48 08/22/19 08:40 08/22/19 07:46 94 08/22/19 03:47 96
--- NOTE | 2019-08-22 14:24 | Discharge Summary ---
Date of Service August 22, 2019 Admission HPI Per Admitting Provider Alexandra Arguello is a 33-year-old female admitted medically on 08/19/2019 after presenting to the ED with chest pain, found to be in hypertensive urgency. Patient was admitted for similar concerns from 08/06/2019 through 08/09/2019. Psychiatric consultation was requested and completed on 08/07/2019 for reports of depression. Consultation is requested again during this admission to evaluate for the same. It is believed that depressive symptoms may be interfering with patient's compliance with recommended dialysis treatment. Patient's case was reviewed and discussed with psychiatrist and psychiatric nurse liaison. Records from current and previous admission were reviewed. It is again reported that patient has not been compliant with her psychotropic medications, and has reportedly missed 2 scheduled dialysis appointments since her discharge on 08/09/2019. Patient is cooperative with psychiatric evaluation, and states that she has been feeling "so-so" since being discharged. Patient admits to having missed 2 dialysis appointments, stating part of the issue was having to rearrange her schedule for [place]. Patient also states that she has not been compliant with her psychotropic medication, taking her medications "maybe 3 or 4 times since I was last here." When asked what patient feels may be contributing to medication nonadherence, she states "it all stems down to neither of us having a job. We have had to ask my samantha's parents for a lot of support." Patient states that she has not been able to work due to having dialysis appointments 3 times a week. She states her fipili was laid off in 06/2019, and has not been able to find employment since that time. Patient admits that she has been increasingly irritable recently, stating "I snap at people, it has been hard to sleep." Patient describes her mood as "not so good." She does admit to feeling depressed in addition to feeling overwhelmed with increased financial stress. When asked about treatment nonadherence specifically, patient states "I do not like dialysis, I do not like how it makes me feel." Patient continues to verbalize understanding that the alternative to regular dialysis treatments is further medical complications and likely . Patient states that she is not presently suicidal, and wants to continue living. Despite this report, patient states that at times she does experience increased hopelessness, which often leads her to missing her dialysis appointments. Patient states that there have been times that she has thought that not complying with treatment could end her life, and has not been bothered by this. She admits however at the end of the day, that she wants to continue to live for her fianc and 3 young children. Patient states that her father struggled with medical complications, having been diagnosed with Crohn's disease. She states that he ended his life as a result of these complex medical issues. Patient states that she has been trying to not have down a similar path, and states that being reminded of the situation often helps to motivate her to remain on schedule with treatment. Patient states that her fianc is supportive, often reminding her of her appointments and to take medications. She does admit that when she is not feeling well emotionally, "it comes off like he is nagging me, I have to tell him that I am not a child and you telling me what to do makes me want to do it less." We discussed that the outcome of this mentality has led her to several hospitalizations, and she admits that it is not the most appropriate mentality to have. When patient is asked what she feels would be helpful in motivating her to comply with treatment, she states "probably therapy, I really need that." Patient states that since she was last seen on consult service she has made a phone call to set up a psychiatric prescriber and a welfare case worker. Patient states that she has not heard back from these attempted phone calls and therefore still does not have outpatient psychiatric services. Patient remains agreeable for therapy, case management, and a psychiatric prescriber. The idea of inpatient psychiatric admission was discussed, and patient feels that this may be beneficial for her "to jump start my treatment, to show me that there is hope." Patient states that at this time she is not actively suicidal, but admits to having limited supports in the community. Patient states she is willing to sign a release for her fianc in order to coordinate safety and aftercare planning. She denies other needs or concerns from our service at this time. Admission Exam Per Admitting Provider GENERAL: The patient is obese, not in acute distress. VITAL SIGNS: Temperature 36.9, pulse 112, respiratory rate 20, blood pressure 215/136, oxygen 98% on room air. HEENT: No pallor, no icterus. Pupils equal, round, reactive to light. NECK: No JVD, no neck masses, no carotid bruits. CARDIOVASCULAR: S1, S2 heard, regular rate and rhythm, no murmur, no gallop. RESPIRATORY SYSTEM: Normal AP diameter. No accessory muscle use. Mild bibasilar crackles. No wheezing. ABDOMEN: Soft, bowel sounds present, nontender. No distention. CENTRAL NERVOUS SYSTEM: Alert and oriented. Nonfocal. EXTREMITIES: No edema, no erythema. Principal Diagnosis ESRD (end stage renal disease) on dialysis; shortness of breath, chest pain, Medical Non Adherence, Depression, Anemia from end stage renal disease, poorly controlled HTN (hypertension) versus Hypertensive urgency, Prolonged QTc on EKG Discharge Exam Constitutional + obese Eyes PERRL, conjunctivae normal, anicteric sclerae EOM intact bilaterally ENMT external ear and nose normal, oropharynx normal Neck normal visual inspection Respiratory normal respiratory effort Cardiovascular Rate/Rhythm: regular rhythm Gastrointestinal (Abdomen) normal bowel sounds, soft, nontender, no hepatosplenomegaly Musculoskeletal Head/Neck/Chest: normocephalic and head atraumatic Neurologic PERRL, EOMI, accommodation nl, no face palsy, no dysarthria CN's II-XI intact bilaterally Psychiatric A+Ox3, euthymic affect Discharge Data Allergies Allergy/AdvReac Type Severity Reaction Status Date / Time cefaclor Allergy Intermediate Rash Verified 08/19/19 20:50 amoxicillin AdvReac Mild VOMITING Verified 08/19/19 20:50 clavulanic acid AdvReac Mild VOMITING Verified 08/19/19 20:50 Consultations 08/19/19 22:52 ED Decision to Admit Stat 08/20/19 01:14 Consult Case Management - Discharge Planning Routine 08/20/19 08:00 Consult Nephrology Routine 08/20/19 16:21 Consult Psychiatry Routine Hospital Course (1) End-stage renal disease (ESRD): ESRD (end stage renal disease) on dialysis: Medical Non Adherence Shortness of breath -missed dialysis session as outpatient ([facility] in [place]), currently admitted for inpatient dialysis and other medical care -patient completed inpatient dialysis on 08/20/19 and on 08/21/19. discharge from hospital and patient encouraged to go to outpatient dialysis center on Saturday08/24/19 scheduled appointments 08/28/2019 11:00 AM Provider Adolph Aldridge MD [facility] 09/01/2019 4:10 PM Provider Adolph Aldridge MD Department [facility] Psychiatric liaison was able to schedule a psychiatric appointment at [place] on 09/03/19 at 2:45 PM for medication management of depression 09/08/2019 11:20 AM [facility]: -was evaluated on last hospital evaluation for missing dialysis as outpatient with contributory factor of depression -continue sertraline (Zoloft) as 100 mg daily -patient wishes to be seen by inpatient psychiatry for depression. psychiatry consult evaluated the patient. Psychiatric liaison was able to schedule a psychiatric appointment at [place] on 09/03/19 at 2:45 PM for medication management of depression Sleep disorder -on trazodone at night Anemia from end stage renal disease -Hemoglobin above 7 -epogen / venofer with dialysis sessions as per nephrology -hemoglobin 8.2 on 08/22/19 poorly controlled HTN (hypertension) versus Hypertensive urgency -hypertension largely from missing dialysis often and medical nonadherence -blood pressures improved primarily with dialysis sessions -was last discharged on amlodipine 10 mg daily, carvedilol 25 mg BID, losartan 50 mg daily; continue as outpatient chest pain -08/20/19: patient with reproducible chest pain. Prolonged QTc on EKG -admission QTc intervals around 500 -patient known to have prolonged QTc from prior admissions -avoid potential QT prolonging drugs Diet controlled diabetes -follow blood sugars -on gabapentin for neuropathic pain Deep venous thrombosis prophylaxis, sequential compression devices for now Discharge Diagnosis: ESRD (end stage renal disease) on dialysis; shortness of breath, chest pain, Medical Non Adherence, Depression, Anemia from end stage renal disease, poorly controlled HTN (hypertension) versus Hypertensive urgency, Prolonged QTc on EKG Total Time Total Time Spent Total Time Spent (In Minutes): 40 minutes Total Time Includes: Examination of the Patient, Discharge Planning, Medication Reconciliation and Communication With Other Providers Discharge Plan Discharge Items Patient Disposition: Home - Self-Care Reason For Visit: NOT FEELING WELL, MISSED DIALYSIS Discharge Diagnosis: ESRD (end stage renal disease) on dialysis; shortness of breath, chest pain, Medical Non Adherence, Depression, Anemia from end stage renal disease, poorly controlled HTN (hypertension) versus Hypertensive urgency, Prolonged QTc on EKG Condition on Discharge: Good Non-emergency contact: Primary Care Provider and Specialist Call non-emergency contact if: you have any medication questions Follow-up/Referrals: [facility] [Outside] - 09/03/19 2:45 pm (appt with Alexandra Doty PA-C) Adolph Aldridge MD [Primary Care Provider] - Diet: Carb Consistent or DM2 and Dialysis Renal Addtl Attending Provider Instructions: patient completed inpatient dialysis on 08/20/19 and on 08/21/19. discharge from hospital and patient encouraged to go to outpatient dialysis center on Saturday08/24/19 scheduled appointments 08/28/2019 11:00 AM Provider Adolph Aldridge MD Department [facility] 09/01/2019 4:10 PM Provider Adolph Aldridge MD Department [facility] Psychiatric liaison was able to schedule a psychiatric appointment at [place] on 09/03/19 at 2:45 PM for medication management of depression 09/08/2019 11:20 AM Provider Leah Nieves MD Department Nephrology, [facility] Pending Studies at Discharge: No Stand-Alone Forms: [facility], Smoking Cessation Medications and DC Order Prescriptions: Continued amlodipine [Norvasc] 5 mg tablet 10 mg PO QAM RF: 0 carvedilol [Coreg] 25 mg tablet 25 mg PO BID RF: 0 loratadine [Claritin] 10 mg Tablet 10 mg PO DAILY PRN (Reason: Allergy Symptoms) RF: 0 prochlorperazine maleate [Compazine] 10 mg tablet 10 mg PO QID PRN (Reason: Nausea And Vomiting) RF: 0 trazodone 100 mg tablet 150 mg PO HS RF: 0 diclofenac sodium 1 % gel 2 g TOPICAL DIRECTED RF: 0 sumatriptan succinate [Imitrex] 50 mg tablet 50 mg PO DIRECTED MDD 100 MG/24 HOURS PRN (Reason: Migraine Headache) RF: 0 albuterol sulfate [Ventolin HFA] 90 mcg/actuation HFA aerosol inhaler 2 puff Inhalation QID PRN (Reason: Shortness Of Breath Or Wheezing) RF: 0 calcium acetate 667 mg capsule 3,335 mg PO TIDM RF: 0 calcium acetate 667 mg capsule 2,668 mg PO DIRECTED RF: 0 gabapentin [Neurontin] 400 mg capsule 800 mg PO HS RF: 0 calcium acetate 667 mg capsule 1,334 mg PO DIRECTED RF: 0 gabapentin [Neurontin] 400 mg Capsule 400 mg PO DIRECTED RF: 0 sevelamer carbonate [Renvela] 800 mg tablet 1,600 mg PO TIDM RF: 0 famotidine [Pepcid] 40 mg Tablet 40 mg PO QAM RF: 0 sertraline [Zoloft] 100 mg tablet 100 mg PO QAM RF: 0 cinacalcet [Sensipar] 60 mg tablet 60 mg PO QDD RF: 0 losartan 50 mg Tablet 50 mg PO QAM 30 Days Qty: 30 RF: 0 Discharge Orders: Discharge Order (Routine); Ordered 08/22/19 Ordered By: Davian Garcia Admission Data Admit Date/Time: 08/19/19 23:36 Attending Provider: Davian Garcia Admit Provider: Daquan Morgan Primary Care Provider: Adolph Aldridge Other Providers: Daquan Morgan ; Leah Nieves ; Janice Angel
[2019-08-22 14:41] VITALS: PULSE 71
== END 2019-08-22 15:27 | disposition home or self-care (01) | DRG 304 ==
LOC: ED 20:13 → 2S 23:36

== ENCOUNTER 2019-12-21 10:04 | Inpatient (IN) ==
[2019-12-21] MEDS ORDERED: ONDANSETRON INJ 2 MG/ML 2 ML VIAL IV STA (10:21)
[2019-12-21] MEDS ORDERED: LABETALOL HCL IV 5 MG/ML 20ML IV STA ×2 (10:21→11:42)
--- NOTE | 2019-12-21 10:33 | XRay Report ---
XR chest 1V portable CLINICAL HISTORY: weakness COMPARISON STUDY: 08/19/2019 FINDINGS: The heart is mildly enlarged. There is no focal pulmonary consolidation. There is no failur e. There are no pleural effusions.[ IMPRESSION: Mild cardiomegaly. No evidence of focal pulmonary consolidation ACT 112: Negative or not required by law. Electronically signed by: Win Foster M.D. 12/21/2019 10:32 AM
[2019-12-21 10:51] LABS: Basophils # (auto) 0.01 K/uL (0-0.2); Basophils % (auto) 0.2 %; Eosinophils # (auto) 0.11 K/uL (0-0.5); Hematocrit (blood only) 34.4 % (37-47); Hemoglobin 11.3 g/dL (12.0-16.0); Immature Granulocytes # (auto) 0.01 K/uL (0.00-0.02); Immature Granulocytes % (auto) 0.2 %; Lymphocytes # (auto) 0.69 K/uL (1.2-3.4); Lymphocytes % (auto) 12.6 %; Mean Corpuscular Hemoglobin 32.9 pg (25-34); Mean Corpuscular Hgb Conc 32.8 g/dL (32-36); Mean Corpuscular Volume 100.3 fL (80-100); Monocytes # (auto) 0.27 K/uL (0.11-0.59); Monocytes % (auto) 4.9 %; Neutrophils % (auto) 80.1 %; Platelet Count 136 K/uL (130-400); RDW Standard Deviation 55.6 fL (36.4-46.3); Red Blood Count 3.43 M/uL (4.2-5.4); White Blood Count 5.49 K/uL (4.8-10.8)
--- NOTE | 2019-12-21 10:51 | Emergency Department Note ---
Impression & Plan Encephalopathy, hypertensive, HTN (hypertension), Acute alteration in mental status, Renal failure ED Provider Note NAME: NATHALIA DUTTON AGE: 34 SEX: F : 1985 ARRIVES VIA: Ambulance INFORMANT: Patient, ED PROVIDER(S): Dash Villatoro DO Additional history was obtained from the prehospital personnel. CHIEF COMPLAINT: Elevated blood pressure HPI: The patient is a 34-year-old female who has a history of end-stage renal d isease requiring dialysis who presented to the emergency department by ambulance for an evaluation of altered mental status and elevated blood pressure. The patient had dialysis today. She had a full round of dialysis. Afterwards she was complaining of not feeling well. She reportedly was difficult to arouse and had been noted to have elevated blood pressure. The patient has had similar symptoms in the past. She states that her last dialysis was last Saturday. She missed dialysis until today. She denies having any nausea or vomiting. She does complain of headache. The patient denies having any fevers or chills. She has had no changes in her medications. She has had no trauma. She denies having any cough. The patient states her symptoms are mildly improved after dialysis. ROS: See above HPI for pertinent positives & negatives. A total of 10 systems reviewed and were otherwise negative. PAST MEDICAL HISTORY: See Below PAST SURGICAL HISTORY: See Below FAMILY HISTORY: See Below SOCIAL HISTORY: See Below HOME MEDICATIONS: See Below ALLERGIES: See Below VITALS: See Below PHYSICAL EXAMINATION: GENERAL: Patient is awake alert in no acute distress patient is resting comfortably and showing no signs of anxiety EYES: The conjunctivae are clear. The pupils are round and reactive. EARS, NOSE, MOUTH AND THROAT: The nose is without any evidence of any deformity. Mucous membranes are moist. Tongue is midline. NECK: The neck is nontender and supple. RESPIRATORY: Normal respiratory effort is noted there is no evidence of wheezing rhonchi or rales CARDIOVASCULAR: Regular rate and rhythm noted there no murmurs rubs or gallops normal S1 normal S2. GASTROINTESTINAL: The abdomen is soft. Abdomen is nontender. MUSCULOSKELETAL/EXTREMITIES: There is no evidence of gross deformity full range of motion is noted in the hips and shoulders. SKIN: There is no obvious evidence of any rash. No pedal edema was noted. There is a dialysis fistula in the left upper extremity. Bruit was noted to auscultation. NEUROLOGIC: Patient is awake alert and oriented x3 strength is symmetric patellar reflexes are 2+ bilaterally MEDICAL DECISION MAKING: [Provider summary] Triage Nursing notes reviewed. Prior medical records reviewed Vital Signs: reviewed and remarkable for elevated blood pressure Differential diagnosis: Infection, dehydration, metabolic abnormality, hypo/hyperglycemia, electrolyte disturbance, anemia, hypoxia, cardiac sources, intracerebral event, toxicologic, neurologic, as well as other pathologies. ER treatment provided: See below Diagnostics interpreted by me: ECG: EKG was obtained in the emergency department. My interpretation is normal sinus rhythm at 83 bpm. PVC was noted. There was high lateral and low lateral T wave inversions with ST segment depressions noted. This was compared to a tracing from November 19, 2019. No significant change was noted. Cardiac Monitoring: An order was placed for continuous cardiac monitoring. The monitor shows a rate of 110 with sinus tachycardia rhythm. Laboratory studies: As stated above and show below. Imaging studies: See below Consultation(s): 1430: I discussed this case with Dr. Esteban who is the patient's primary osteopathy doctor. At this time she would recommend daily dialysis at least for the next 2 days. If we cannot get this as an outpatient the patient may require inpatient management. 1510: The [facility] hospitalist group was notified about the patient's need for inpatient management. They will evaluate the patient for further management in the emergency department. 1535: I discussed this case with Veda who is on-call for the [facility] hospitalist group. They have agreed to evaluate the patient in the emergency department for further management and disposition Critical care time I have personally spent greater than 45 minutes of critical care time in the direct management of this patient. This includes bedside care, interpretation of diagnostic studies, and testing, discussion with consultants, patient, and family members, and other required patient management activities. This 45 minutes is in excess of all separately billable procedures. Past Med/Surg History Social History Preferred Language: Citizen Of The [place] Communication Ability: Effective Stunt Woman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 Beliefs That Will Affect Care: None marital status: Current Living Situation: Family and Significant Other Current Living Situation Comment: [facility] current occupational status: employed Feels Safe at Home: Yes Smoking Status: Never smoker Tobacco Type: cigarettes ; Cigarettes Per Day: 2 ; Second Hand Exposure: Yes ; Hx Alcohol Use: No Hx Substance Use: No Allergies Allergies Allergy/AdvReac Type Severity Reaction Status Date / Time cefaclor Allergy Intermediate Rash Verified 12/21/19 11:30 amoxicillin AdvReac Mild VOMITING Verified 12/21/19 11:30 clavulanic acid AdvReac Mild VOMITING Verified 12/21/19 11:30 Home Meds Home Medications Medication Instructions Recorded Confirmed albuterol sulfate [Ventolin HFA] 2 puff INHALATION QID PRN 05/30/18 12/21/19 calcium acetate(phosphat bind) 1,334 mg PO DIRECTED 05/30/18 12/21/19 sumatriptan succinate [Imitrex] 50 mg PO DIRECTED PRN MDD 100 05/30/18 12/21/19 MG/24 HOURS gabapentin [Neurontin] 800 mg PO HS 11/26/18 12/21/19 gabapentin [Neurontin] 400 mg PO DIRECTED 01/24/19 12/21/19 famotidine [Pepcid] 40 mg PO QAM 04/21/19 12/21/19 sertraline [Zoloft] 100 mg PO QAM 06/12/19 12/21/19 loratadine [Claritin] 10 mg PO DAILY PRN 06/17/19 12/21/19 ferric citrate [Auryxia] 420 mg PO TIDM 10/17/19 12/21/19 trazodone 150 mg PO HS 10/17/19 12/21/19 losartan 100 mg PO QAM 11/12/19 12/21/19 calcium acetate(phosphat bind) 667 mg PO UD 11/19/19 12/21/19 carvedilol 3.125 mg PO DAILY 12/21/19 12/21/19 cinacalcet 30 mg PO DAILY 12/21/19 12/21/19 Previous Rx's Medication Instructions Recorded ondansetron 4 mg PO Q6 PRN #14 tab 11/12/19 Results & Data (ED) Vital Signs Vital Signs - 24 hr 12/21/19 10:15 12/21/19 10:39 12/21/19 11:00 Temperature 36.9 C Temperature Source Oral Pulse Rate 106 H 82 Pulse Rate from SpO2 Sensor 80 Pulse Rhythm Regular Pulse Strength Normal Respiratory Rate 22 16 Respiratory Effort / Characteristics Non-Labored Spontaneous Respiratory Depth Normal Respiratory Pattern Regular Blood Pressure 185/118 H 187/118 H Blood Pressure Mean 140 135 Blood Pressure Position Sitting Pulse Oximetry 98 98 99 Oxygen Delivery Method Room Air Room Air Sepsis Recent Fever Within 48 Hours No Sepsis New/Unexplained Change in Mental Status No Sepsis Action Taken by Nursing No Action Required 12/21/19 11:30 12/21/19 11:45 12/21/19 12:00 Temperature Temperature Source Pulse Rate 79 76 79 Pulse Rate from SpO2 Sensor Pulse Rhythm Pulse Strength Respiratory Rate 15 12 15 Respiratory Effort / Characteristics Respiratory Depth Respiratory Pattern Blood Pressure 171/119 H 175/118 H 181/120 H Blood Pressure Mean 132 132 135 Blood Pressure Position Pulse Oximetry 100 95 96 Oxygen Delivery Method Room Air Room Air Sepsis Recent Fever Within 48 Hours Sepsis New/Unexplained Change in Mental Status Sepsis Action Taken by Nursing 12/21/19 12:15 12/21/19 12:30 12/21/19 12:45 Temperature Temperature Source Pulse Rate 76 83 78 Pulse Rate from SpO2 Sensor Pulse Rhythm Pulse Strength Respiratory Rate 14 14 18 Respiratory Effort / Characteristics Respiratory Depth Respiratory Pattern Blood Pressure 189/119 H 173/114 H 168/103 H Blood Pressure Mean 132 121 123 Blood Pressure Position Pulse Oximetry 95 99 95 Oxygen Delivery Method Room Air Room Air Room Air Sepsis Recent Fever Within 48 Hours Sepsis New/Unexplained Change in Mental Status Sepsis Action Taken by Nursing 12/21/19 13:01 12/21/19 13:15 12/21/19 13:30 Temperature Temperature Source Pulse Rate 80 80 80 Pulse Rate from SpO2 Sensor Pulse Rhythm Pulse Strength Respiratory Rate 16 17 19 Respiratory Effort / Characteristics Respiratory Depth Respiratory Pattern Blood Pressure 149/87 H 154/101 H 147/121 H Blood Pressure Mean 130 135 132 Blood Pressure Position Pulse Oximetry 94 95 95 Oxygen Delivery Method Room Air Room Air Room Air Sepsis Recent Fever Within 48 Hours Sepsis New/Unexplained Change in Mental Status Sepsis Action Taken by Nursing 12/21/19 13:45 12/21/19 14:00 12/21/19 14:15 Temperature Temperature Source Pulse Rate 80 79 82 Pulse Rate from SpO2 Sensor Pulse Rhythm Pulse Strength Respiratory Rate 24 12 14 Respiratory Effort / Characteristics Respiratory Depth Respiratory Pattern Blood Pressure 160/112 H 160/108 H 159/90 H Blood Pressure Mean 134 126 106 Blood Pressure Position Pulse Oximetry 98 96 97 Oxygen Delivery Method Sepsis Recent Fever Within 48 Hours Sepsis New/Unexplained Change in Mental Status Sepsis Action Taken by Nursing 12/21/19 14:30 04/27/20 15:00 12/21/19 15:15 Temperature Temperature Source Pulse Rate 77 81 81 Pulse Rate from SpO2 Sensor 76 81 81 Pulse Rhythm Pulse Strength Respiratory Rate 14 13 17 Respiratory Effort / Characteristics Respiratory Depth Respiratory Pattern Blood Pressure 161/108 H 156/102 H 139/100 Blood Pressure Mean 125 126 113 Blood Pressure Position Pulse Oximetry 98 98 96 Oxygen Delivery Method Room Air Room Air Room Air Sepsis Recent Fever Within 48 Hours Sepsis New/Unexplained Change in Mental Status Sepsis Action Taken by Nursing 12/21/19 15:30 Temperature Temperature Source Pulse Rate 80 Pulse Rate from SpO2 Sensor 80 Pulse Rhythm Pulse Strength Respiratory Rate 13 Respiratory Effort / Characteristics Respiratory Depth Respiratory Pattern Blood Pressure 155/103 H Blood Pressure Mean 115 Blood Pressure Position Pulse Oximetry 94 Oxygen Delivery Method Room Air Sepsis Recent Fever Within 48 Hours Sepsis New/Unexplained Change in Mental Status Sepsis Action Taken by [facility] Medications Current Medication List: was personally reviewed by me Laboratory Data Attestation: I reviewed the patient's lab results. Result diagrams: 12/21/19 10:37 12/21/19 10:37 Lab Results 12/21/19 12/21/19 12/21/19 Range/Units 10:37 10:37 10:37 WBC 5.49 (4.8-10.8) K/uL RBC 3.43 L (4.2-5.4) M/uL Hgb 11.3 L (12.0-16.0) g/dL Hct 34.4 L (37-47) % MCV 100.3 H (80-100) fL MCH 32.9 (25-34) pg MCHC 32.8 (32-36) g/dL RDW Std Deviation 55.6 H (36.4-46.3) fL RDW Coeff of Laith 15.0 H (11.5-14.5) % Plt Count 136 (130-400) K/uL MPV 9.0 (7.4-10.4) fL Immature Gran % (Auto) 0.2 % Neut % (Auto) 80.1 % Lymph % (Auto) 12.6 % [place] % (Auto) 4.9 % Eos % (Auto) 2.0 % Baso % (Auto) 0.2 % Immature Gran # (Auto) 0.01 (0.00-0.02) K/uL Neut # (Auto) 4.40 (1.4-6.5) K/uL Lymph # (Auto) 0.69 L (1.2-3.4) K/uL [place] # (Auto) 0.27 (0.11-0.59) K/uL Eos # (Auto) 0.11 (0-0.5) K/uL Baso # (Auto) 0.01 (0-0.2) K/uL PT 10.5 (9.0-12.0) Seconds INR 1.0 (0.9-1.1) APTT 25.9 (21.0-31.0) Seconds PTT Ratio 0.9 Sodium 132 L (136-145) mmol/L Potassium 4.1 (3.5-5.1) mmol/L Chloride 94 L (98-107) mmol/L Carbon Dioxide 30 (21-32) mmol/L Anion Gap 7.0 (3-11) BUN 29 H (7-18) mg/dl Creatinine 5.94 H* (0.6-1.2) mg/dl Est Cr Clr Drug Dosing 16.1 ml/min Est GFR ( Amer) 9.9 Est GFR (Non-Af Amer) 8.5 BUN/Creatinine Ratio 4.8 L (10-20) Glucose 86 (70-99) mg/dl Calcium 8.6 (8.5-10.1) mg/dl Magnesium 2.4 (1.8-2.4) mg/dl Total Bilirubin 0.5 (0.2-1) mg/dl AST 20 (15-37) U/L ALT 27 (12-78) U/L Alkaline Phosphatase 127 H (45-117) U/L Troponin I 0.109 H* (0-0.045) ng/ml Total Protein 7.3 (6.4-8.2) gm/dl Albumin 3.1 L (3.4-5.0) gm/dl Globulin 4.2 H (2.5-4.0) gm/dl Albumin/Globulin Ratio 0.7 L (0.9-2) TSH 2.730 (0.300-4.500) uIu/ml Administered Medications Discontinued Medications Labetalol HCl (Normodyne) 10 mg IV NOW STA Stop: 12/21/19 10:22 Last Admin: 12/21/19 11:07 Dose: 10 mg Documented by: [id number] Cosigned by: [id number] Labetalol HCl (Normodyne) 10 mg IV NOW STA Stop: 12/21/19 11:43 Last Admin: 12/21/19 12:11 Dose: 10 mg Documented by: [id number] Cosigned by: [id number] Ondansetron HCl (Zofran) 4 mg IV NOW STA Stop: 12/21/19 10:22 Last Admin: 12/21/19 11:07 Dose: 4 mg Documented by: [id number] Imaging Data Radiologist's Impression: CT head/brain wo con CLINICAL HISTORY: lethargic COMPARISON STUDY: 12/28/2017 TECHNIQUE: Axial CT of the brain is performed from the vertex to the skull base. IV contrast was not administered for this examination. A dose lowering technique was utilized adhering to the principles of ALARA. CT DOSE: 537.48 mGy.cm FINDINGS: No intra or extra-axial mass lesions are visualized. There is no CT evidence of acute cortical infarction. There is no evidence of midline shift. There is no acute hemorrhage. No calvarial fractures are visualized. There is no evidence of pathologic ventricular dilatation. There is no evidence of acute sinusitis IMPRESSION: No acute intracranial findings ACT 112: Negative or not required by law. Electronically signed by: Win Foster M.D. 12/21/2019 10:55 AM Dictated: 12/21/19 1054 Transcribed: 12/21/19 1054 XR chest 1V portable CLINICAL HISTORY: weakness COMPARISON STUDY: 08/19/2019 FINDINGS: The heart is mildly enlarged. There is no focal pulmonary consolidation. There is no failure. There are no pleural effusions.[ IMPRESSION: Mild cardiomegaly. No evidence of focal pulmonary consolidation ACT 112: Negative or not required by law. Electronically signed by: Win Foster M.D. 12/21/2019 10:32 AM Dictated: 12/21/19 1031 Transcribed: 12/21/19 1031 Blood Pressure Blood Pressure Findings: Elevated blood pressure Blood Pressure Disposition: Referred to patients primary care provider Discharge Plan Visit Data Chief Complaint: Hypertension ED Provider: Dash Villatoro Discharge Problem: Encephalopathy, hypertensive, HTN (hypertension), Acute alteration in mental status, Renal failure Patient Disposition: Being Evaluated by Hospitalist Condition: Good Forms Stand Alone Forms: [employer] Prescriptions Prescriptions: No Action loratadine [Claritin] 10 mg Tablet 10 mg PO DAILY PRN (Reason: Allergy Symptoms) RF: 0 ondansetron 4 mg tablet,disintegrating 4 mg PO Q6 PRN (Reason: nausea and vomiting) Qty: 14 RF: 0 losartan 100 mg tablet 100 mg PO QAM RF: 0 sumatriptan succinate [Imitrex] 50 mg tablet 50 mg PO DIRECTED MDD 100 MG/24 HOURS PRN (Reason: Migraine Headache) RF: 0 albuterol sulfate [Ventolin HFA] 90 mcg/actuation HFA aerosol inhaler 2 puff Inhalation QID PRN (Reason: Shortness Of Breath Or Wheezing) RF: 0 calcium acetate(phosphat bind) 667 mg capsule 1,334 mg PO DIRECTED RF: 0 gabapentin [Neurontin] 400 mg capsule 800 mg PO HS RF: 0 gabapentin [Neurontin] 400 mg Capsule 400 mg PO DIRECTED RF: 0 famotidine [Pepcid] 40 mg Tablet 40 mg PO QAM RF: 0 sertraline [Zoloft] 100 mg tablet 100 mg PO QAM RF: 0 trazodone 50 mg tablet 150 mg PO HS RF: 0 Auryxia 210 mg iron tablet 420 mg PO TIDM RF: 0 calcium acetate(phosphat bind) 667 mg capsule 667 mg PO UD RF: 0 carvedilol 3.125 mg tablet 3.125 mg PO DAILY RF: 0 cinacalcet 30 mg tablet 30 mg PO DAILY RF: 0 Referrals Referrals: Adolph Aldridge MD [Primary Care Provider] - Discharge Problem: HTN (hypertension) Qualifiers: Hypertension type: unspecified Qualified Code(s): I10 - Essential (primary) hypertension Renal failure Qualifiers: Renal failure chronicity: acute on chronic Acute renal failure type: unspecified Chronic kidney disease stage: on chronic dialysis Qualified Code(s): N17.9 - Acute kidney failure, unspecified
--- NOTE | 2019-12-21 10:56 | CT Scan Report ---
CT head/brain wo con CLINICAL HISTORY: lethargic COMPARISON STUDY: 12/28/2017 TECHNIQUE: Axial CT of the brain is performed from the vertex to the skull base. IV contrast was not administered for this examination. A dose lowering technique was utilized adhering to the principles of ALARA. CT DOSE: 537.48 mGy.cm FINDINGS: No intra or extra-axial mass lesions are visualized. There is no CT evidence of acute cortical infarc tion. There is no evidence of midline shift. There is no acute hemorrhage. No calvarial fractures ar e visualized. There is no evidence of pathologic ventricular dilatation. There is no evidence of acute sinusitis IMPRESSION: No acute intracranial findings ACT 112: Negative or not required by law. Electronically signed by: Win Foster M.D. 12/21/2019 10:55 AM
[2019-12-21 11:07] LABS: Partial Thromboplastin Ratio 0.9; Partial Thromboplastin Time 25.9 Seconds (21.0-31.0); Prothrombin Time 10.5 Seconds (9.0-12.0)
[2019-12-21 11:31] LABS: Albumin Globulin Ratio 0.7 (0.9-2); Albumin Level 3.1 gm/dl (3.4-5.0); BUN Creatinine Ratio 4.8 (10-20); Bilirubin,Total 0.5 mg/dl (0.2-1); Calcium 8.6 mg/dl (8.5-10.1); Creatinine Clr Calc Pharmacy 16.1 ml/min; Est GFR (African American) 9.9; Est GFR (Non-African American) 8.5; Globulin 4.2 gm/dl (2.5-4.0); Magnesium 2.4 mg/dl (1.8-2.4); Potassium 4.1 mmol/L (3.5-5.1); Thyroid Stimulating Hormone 2.73 uIu/ml (0.300-4.500); Total Protein 7.3 gm/dl (6.4-8.2); Troponin I 0.109 ng/ml (0-0.045)
--- NOTE | 2019-12-21 14:51 | Electrocardiogram Report ---
Test Reason : Blood Pressure : / mmHG Vent. Rate : 083 BPM Atrial Rate : 083 BPM P-R Int : 160 ms QRS Dur : 096 ms QT Int : 446 ms P-R-T Axes : 037 003 077 degrees QTc Int : 524 ms Sinus rhythm with Premature atrial complexes Possible Left atrial enlargement Cannot rule out Anterior infarct , age undetermined Prolonged QT Abnormal ECG When compared with ECG of 19-NOV-2019 11:47, No significant change Confirmed by Dash Tejada ([id number]) on 12/21/2019 2:51:10 PM Referred By: REFERRED SELF Confirmed By:Dash Tejada
--- NOTE | 2019-12-21 16:19 | History & Physical Report ---
Date of Service December 21, 2019 Assessment & Plan (1) Hypertensive urgency: Pt is 34 y/o F with PMH end-stage renal disease on HD on MWF, history of FSGS, s/p failed renal transplantation, DM II, HTN, depression, chronic anemia, migraines presented to ER with c/o HTN. Patient missed dialysis on 12/18/2019. Had dialysis today. After dialysis patient reports felt weak and dizzy and she was noted to be hypertensive. Pt c/o GARNETT and reports feels like her chronic GARNETT's. Denies CP, SOB. In ER pt afebrile, P: 106 down to 77, BP: 185/118 down to 161/108, 98% on RA -In ER given labetalol 10mg IV x 2 doses -Probable secondary to missed HD -Carvedilol has been decreased from 12.5mg BID in 08/2019 and tapered down to 3.125mg daily -Continue losartan, carvedilol -BP 165/114. Dose amlodipine now -Monitor BP closely -If BP still elevated consider adding night dose of coreg (2) End-stage renal disease (ESRD): On HD on MWF, h/o FSGS, s/p failed renal transplantation -Had HD today 12/21/2019 -Continue home renal meds -Nephrology consult. Dr Nieves was contacted by ER who suggested daily dialysis for the next 2 days (3) Elevated troponin: Troponin: 0.1. Baseline Troponin: 0.1-0.2. No CP, SOB. No acute EKG changes (4) DM2 (diabetes mellitus, type 2): Diet controlled A1c: 5.1 in 04/2019. Random glucose: 86 (5) Anemia: Chronic anemia. H/H: . Improved from baseline -Monitor H&H (6) Prolonged QT interval: Qtc: 524. H/O prolonged QT On Zoloft and trazodone -Will continue Zoloft and trazodone for now, however close monitoring and monitoring of QTc and recommend outpatient follow up Avoid other QTc prolonged agents (7) Migraine: -Continue imitrex prn (8) Depression: On Zoloft and trazodone DVT Prophylaxis -SCDs Full ode as per discussion with pt Follows with Dr Aldridge for routine care Pt was seen and care coordinated with Dr Glover. See addendum History of Present Illness Chief Complaint: HTN Primary Care Provider: Adolph Aldridge MD Pt is 34 y/o F with PMH end-stage renal disease on HD on MWF, history of FSGS, s/p failed renal transplantation, DM II, HTN, depression, chronic anemia, migraines presented to ER with c/o HTN. Patient missed dialysis on 12/18/2019. Had dialysis today. After dialysis patient reports felt weak and dizzy and she was noted to be hypertensive and referred to ER. In ER pt c/o GARNETT. Patient denies any dizziness or weakness sensation at this time. She reports that she is hungry. Patient reports taking her morning medications today. She reports her carvedilol dose had been decreased to 3.125 daily. Does not make urine. Denies fever/chills, diaphoresis, N/V/D/C, syncope, vision changes, neck pain, CP, SOB, orthopnea, palpitations, cough, sore throat, choking, otalgia, rhinorrhea, abdominal pain, paresthesias, extremity edema, rashes. Upon ER presentation patient noted to be hypertensive with BP 185/118 and given 2 doses of labetalol IV. BP down to 161/108. Nephrology was contacted who had suggested daily dialysis for the next 2 days however was unable to arrange outpatient patient so being admitted at this time. Allergies Allergy/AdvReac Type Severity Reaction Status Date / Time cefaclor Allergy Intermediate Rash Verified 12/21/19 11:30 amoxicillin AdvReac Mild VOMITING Verified 12/21/19 11:30 clavulanic acid AdvReac Mild VOMITING Verified 12/21/19 11:30 Home Medications Home Medications Medication Instructions Recorded Confirmed Type albuterol sulfate [Ventolin HFA] 2 puff INHALATION QID PRN 05/30/18 12/21/19 History calcium acetate(phosphat bind) 1,334 mg PO TIDM 05/30/18 12/21/19 History sumatriptan succinate [Imitrex] 50 mg PO DIRECTED PRN MDD 100 05/30/18 12/21/19 History MG/24 HOURS gabapentin [Neurontin] 800 mg PO HS 11/26/18 12/21/19 History gabapentin [Neurontin] 400 mg PO DIRECTED 01/24/19 12/21/19 History famotidine [Pepcid] 40 mg PO QAM 04/21/19 12/21/19 History sertraline [Zoloft] 150 mg PO QAM 06/12/19 12/21/19 History loratadine [Claritin] 10 mg PO DAILY PRN 06/17/19 12/21/19 History ferric citrate [Auryxia] 420 mg PO TIDM 10/17/19 12/21/19 History trazodone 150 mg PO HS 10/17/19 12/21/19 History losartan 100 mg PO QAM 11/12/19 12/21/19 History ondansetron 4 mg PO Q6 PRN #14 tab 11/12/19 12/21/19 Rx calcium acetate(phosphat bind) 667 mg PO UD 11/19/19 12/21/19 History carvedilol 3.125 mg PO DAILY 12/21/19 12/21/19 History cinacalcet 30 mg PO DAILY 12/21/19 12/21/19 History Past Med/Surg History Medical History Anemia Anxiety and depression Asthma "BEEN A WHILE" SINCE USING LAST RESCUE INHALER Bipolar disorder CKD (chronic kidney disease) stage V requiring chronic dialysis (Chronic) Depression (Chronic) Dialysis patient SATURDAY/SAT/SATURDAY AT [facility] DM2 (diabetes mellitus, type 2) (Chronic) CONTROLLED WITH DIET AND EXERCISE Fistula LEFT ARM FSGS (focal segmental glomerulosclerosis) (Chronic) DX INITIALLY 2012 (CAUSING ESRD 2012) GERD (gastroesophageal reflux disease) HTN (hypertension) (Chronic) Migraine Peripheral neuropathy Peritoneal dialysis catheter in place Prolonged QT interval (Acute) Restless leg syndrome Surgical History H/O eye surgery (Resolved) LASER SURGERY H/O hernia repair (Resolved) ABDOMINAL WALL H/O knee surgery (Resolved) LEFT KNEE X 2 H/O tubal ligation (Resolved) H/O: (Resolved) X 2 History of cardiac cath 2016 NO STENTS History of cholecystectomy (Resolved) History of colonoscopy History of tooth extraction Kidney transplant recipient 2013 AT [facility] Family History Grandmother Hx of CABG Mother Diabetes Father Crohn's disease Grandfather (Maternal) Diabetes Uncle Diabetes Social History (Updated 12/21/19 @ 16:29 by Isabel Alexis PA-C) Preferred Language: Liberian Communication Ability: Effective Assistant Boiler Operator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 Beliefs That Will Affect Care: None marital status: Current Living Situation: Family and Significant Other Current Living Situation Comment: [facility] current occupational status: employed Feels Safe at Home: Yes Smoking Status: Current every day smoker Tobacco Type: cigarettes ; Cigarettes Per Day: 2 per day ; Second Hand Exposure: Yes ; Hx Alcohol Use: No Hx Substance Use: No Review of Systems Review of Systems: All systems reviewed & are unremarkable except as noted in HPI & below Physical Exam Physical Exam: General: no distress, obese Head: normocephalic, atraumatic Eyes: PERRL, EOM's intact, conjunctiva non-injected, anicteric ENT: normal inspection external ears, nose, mucous membranes moist Neck: supple, trachea midline, non-tender Lungs: clear, no respiratory distress, no wheezing/rhonchi/rales CV: RRR, no murmur, no pretibial edema Abd: normal BS, soft, non-tender Ext: no cyanosis, no calf tenderness; fistula left arm with palpable thrill Neuro: A&O x 3, no focal deficits noted, normal affect Skin: warm, dry Results & Data Results & Data ([facility]) Vital Signs (Past 12 Hours) Vital Signs Temp Pulse Resp BP Pulse Ox 12/21/19 15:30 80 13 155/103 H 94 12/21/19 15:15 81 17 139/100 96 12/21/19 15:00 81 13 156/102 H 98 12/21/19 14:30 77 14 161/108 H 98 12/21/19 14:15 82 14 159/90 H 97 12/21/19 14:00 79 12 160/108 H 96 12/21/19 13:45 80 24 160/112 H 98 12/21/19 13:30 80 19 147/121 H 95 12/21/19 13:15 80 17 154/101 H 95 12/21/19 13:01 80 16 149/87 H 94 12/21/19 12:45 78 18 168/103 H 95 12/21/19 12:30 83 14 173/114 H 99 12/21/19 12:15 76 14 189/119 H 95 12/21/19 12:00 79 15 181/120 H 96 12/21/19 11:45 76 12 175/118 H 95 12/21/19 11:30 79 15 171/119 H 100 12/21/19 11:00 82 16 187/118 H 99 12/21/19 10:39 98 12/21/19 10:15 36.9 C 106 H 22 185/118 H 98 Laboratory Results Short CBC 12/21/19 Range/Units 10:37 WBC 5.49 (4.8-10.8) K/uL Hgb 11.3 L (12.0-16.0) g/dL Hct 34.4 L (37-47) % Plt Count 136 (130-400) K/uL BMP 12/21/19 10:37 Sodium 132 L Potassium 4.1 Chloride 94 L Carbon Dioxide 30 BUN 29 H Creatinine 5.94 H* Glucose 86 Calcium 8.6 Cardiac Enzymes 12/21/19 Range/Units 10:37 Troponin I 0.109 H* (0-0.045) ng/ml Liver Function 12/21/19 Range/Units 10:37 Total Bilirubin 0.5 (0.2-1) mg/dl AST 20 (15-37) U/L ALT 27 (12-78) U/L Alkaline Phosphatase 127 H (45-117) U/L Albumin 3.1 L (3.4-5.0) gm/dl Diagnostic Findings CT HEAD: IMPRESSION: No acute intracranial findings CXR: IMPRESSION: Mild cardiomegaly. No evidence of focal pulmonary consolidation ECG Rate (beats per minute): 83 Rhythm: sinus rhythm Findings: + PAC Change: no significant change Code Status & VTE Plan VTE Prophylaxis Plan VTE Prophylaxis will be ordered: Yes Supervising Physician Co-Signing Physician Notes I have seen and examined the patient and have discussed the case with the provider above. I agree with the assessment and plan as stated. 34 yo failed renal transplant patient on hemodialysis presents with hypertensive urgency and excessive fatigue during dialysis today. She reports compliance with her antihypertensive medications and compliance with a low salt diet. She did miss her last scheduled HD session on Saturday, 12/17. She is not having chest pain and is mentating well. There is no other evidence of end organ damage. She does report a persistent headache despite Imitrex and Tylenol. She is requesting Benadryl as this has worked for her migraines in the past. My physical exam reflects that above, and her LUE fistula is notably enlarged. Agree with the plan above. She received one dose of amlodipine two hours ago 0, and her BP is now 154/94 with HR 81 on my check. Of note, patient reports they have been checking her forearm pressure with previous measurements. I updated the RESIDENTIAL MANAGER for the floor the preference for upper arm BP checks using the size 12 cuff, which is appropriately sized for her arm. He verbalized understanding with intent to comply. Will order hydralazine PRN SBP>170 overnight. Appreciate Nephrology input. Hopeful that the benadryl will help her migraine and BP will trend down overnight. Cont low salt, renal diet. DO Adalberto (1) DM2 (diabetes mellitus, type 2) Diabetes mellitus complication status: with unspecified complications Diabetes mellitus shelter insulin use: without watcher automat long goods use Qualified Code(s): E11.8 - Type 2 diabetes mellitus with unspecified complications (2) Anemia Anemia type: due to chronic kidney disease Chronic kidney disease stage: on chronic dialysis Qualified Code(s): N18.6 - End stage renal disease; D63.1 - Anemia in chronic kidney disease; Z99.2 - Dependence on renal dialysis (3) Depression Depression Type: unspecified Qualified Code(s): F32.9 - Major depressive disorder, single episode, unspecified
[2019-12-21] MEDS ORDERED: ACETAMINOPHEN 500 MG TAB PO STA (16:25)
[2019-12-21] MEDS ORDERED: ACETAMINOPHEN 500 MG TAB ONE (16:32)
[2019-12-21] MEDS ORDERED: AMLODIPINE BESYLATE 5 MG TAB PO ONE (18:18)
[2019-12-21] MEDS ORDERED: CALCIUM ACETATE 667 MG CAP/TAB PO PRN (18:18)
[2019-12-21] MEDS ORDERED: ACETAMINOPHEN 325 MG TAB PO PRN (18:18)
[2019-12-21] MEDS ORDERED: SUMAtriptan succinate 50 MG TAB PO PRN (18:18)
[2019-12-21] MEDS: CALCIUM ACETATE 667 MG CAP/TAB PO SCH (18:56)
[2019-12-21] MEDS ORDERED: TRAZODONE HCL 50 MG TAB PO SCH (21:00)
[2019-12-21] MEDS ORDERED: GABAPENTIN 400 MG CAP PO SCH (21:00)
[2019-12-22 06:51] LABS: Hematocrit (blood only) 35.7 % (37-47); Hemoglobin 11.5 g/dL (12.0-16.0); Mean Corpuscular Hemoglobin 32.8 pg (25-34); Mean Corpuscular Hgb Conc 32.2 g/dL (32-36); Mean Corpuscular Volume 101.7 fL (80-100); Mean Platelet Volume 9.2 fL (7.4-10.4); Platelet Count 133 K/uL (130-400); RDW Coefficient of Variation 15.1 % (11.5-14.5); Red Blood Count 3.51 M/uL (4.2-5.4); White Blood Count 4.81 K/uL (4.8-10.8)
[2019-12-22] MEDS ORDERED: SODIUM CHLORIDE 0.9% 1000ML 1,000 ML IV PRN (07:19)
[2019-12-22] MEDS ORDERED: HEPARIN SOD (PORCINE) 1000 UNIT/ML 10 ML VIAL IV ONE (07:19)
--- NOTE | 2019-12-22 07:19 | Nephrology Consultation ---
Date of Consultation December 22, 2019 Assessment & Plan (1) ESRD (end stage renal disease) on dialysis: HD this am 3 hrs; if stable clinically, may be able to d/c home after tx to resume OP tx tomorrow. chemistries acceptable; no sx this am. Present on Admission?: Yes (2) Hypertensive urgency: resolved; tx today w/ aggressive uf as tolerated; cont OP bp meds. had mild troponin elevation likely demand ischemia Present on Admission?: Yes (3) Encephalopathy, hypertensive: resolved on my exam Present on Admission?: Yes (4) Anemia due to end stage renal disease: stable Present on Admission?: Yes History of Present Illness Reason for Consultation: ESRD on dialysis with hypertensive urgency Requesting Physician: Dr. Glover Attending Physician: Ragini Glover, DO History of Present Illness 34-year-old female with ESRD on Saturday hemodialysis via AV fi stula was sent by dialysis unit after treatment yesterday for evaluation in ER after blood pressure remained in the 180s systolic after treatment. She had missed th treatment due to GI illness. She then presented for treatment yesterday with a 9 kg weight gain. He had 4 L off during the treatment and had some diminished mental status transiently again with systolic blood pressures 180-200s through the treatment. The patient had headache but no confusion or acute visual changes pain or dyspnea in the ER. No focal numbness or weakness in the ER. She had 2 doses of IV labetalol in the ER. We attempted to arrange for outpatient dialysis today in addition to her routine treatments. This was unfortunately unavailable. On evaluation this morning, her headache is resolved. No confusion, no nausea vomiting, no diarrhea or abdominal pain. No chest pain or shortness of breath no edema. Allergies Allergy/AdvReac Type Severity Reaction Status Date / Time cefaclor Allergy Intermediate Rash Verified 12/21/19 11:30 amoxicillin AdvReac Mild VOMITING Verified 12/21/19 11:30 clavulanic acid AdvReac Mild VOMITING Verified 12/21/19 11:30 Home Medications Home Medications Medication Instructions Recorded Confirmed Type albuterol sulfate [Ventolin HFA] 2 puff INHALATION QID PRN 05/30/18 12/21/19 History calcium acetate(phosphat bind) 1,334 mg PO TIDM 05/30/18 12/21/19 History sumatriptan succinate [Imitrex] 50 mg PO DIRECTED PRN MDD 100 05/30/18 12/21/19 History MG/24 HOURS gabapentin [Neurontin] 800 mg PO HS 11/26/18 12/21/19 History gabapentin [Neurontin] 400 mg PO DIRECTED 01/24/19 12/21/19 History famotidine [Pepcid] 40 mg PO QAM 04/21/19 12/21/19 History sertraline [Zoloft] 150 mg PO QAM 06/12/19 12/21/19 History loratadine [Claritin] 10 mg PO DAILY PRN 06/17/19 12/21/19 History ferric citrate [Auryxia] 420 mg PO TIDM 10/17/19 12/21/19 History trazodone 150 mg PO HS 10/17/19 12/21/19 History losartan 100 mg PO QAM 11/12/19 12/21/19 History ondansetron 4 mg PO Q6 PRN #14 tab 11/12/19 12/21/19 Rx calcium acetate(phosphat bind) 667 mg PO UD 11/19/19 12/21/19 History carvedilol 3.125 mg PO DAILY 12/21/19 12/21/19 History cinacalcet 30 mg PO DAILY 12/21/19 12/21/19 History Patient History Medical History Anemia Anxiety and depression Asthma "BEEN A WHILE" SINCE USING LAST RESCUE INHALER Bipolar disorder CKD (chronic kidney disease) stage V requiring chronic dialysis (Chronic) Depression (Chronic) Dialysis patient SATURDAY/SAT/SATURDAY AT [facility] DM2 (diabetes mellitus, type 2) (Chronic) CONTROLLED WITH DIET AND EXERCISE Fistula LEFT ARM FSGS (focal segmental glomerulosclerosis) (Chronic) DX INITIALLY 2012 (CAUSING ESRD 2012) GERD (gastroesophageal reflux disease) HTN (hypertension) (Chronic) Migraine Peripheral neuropathy Peritoneal dialysis catheter in place Prolonged QT interval (Acute) Restless leg syndrome Surgical History H/O eye surgery (Resolved) LASER SURGERY H/O hernia repair (Resolved) ABDOMINAL WALL H/O knee surgery (Resolved) LEFT KNEE X 2 H/O tubal ligation (Resolved) H/O: (Resolved) X 2 History of cardiac cath 2017 NO STENTS History of cholecystectomy (Resolved) History of colonoscopy History of tooth extraction Kidney transplant recipient 2013 AT [facility] Family History Grandmother Hx of CABG Mother Diabetes Father Crohn's disease Grandfather (Maternal) Diabetes Uncle Diabetes Social History Preferred Language: Tristanian Communication Ability: Effective Filler Sifter Helper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 Beliefs That Will Affect Care: None marital status: Current Living Situation: Significant Other Current Living Situation Comment: [employer] [address] in [place] current occupational status: employed Other Information That Helps Us Care for You: No Feels Safe at Home: Yes Smoking Status: Current every day smoker Tobacco Type: cigarettes ; Cigarettes Per Day: 2 per day ; Do You Dip or Chew Tobacco: No ; Second Hand Exposure: No ; Tobacco Cessation Education Requested by Patient: No Hx Alcohol Use: No Hx Substance Use: No Review of Systems Review of Systems: All systems reviewed & are unremarkable except as noted in HPI & below Headache has resolved as of this morning; pt is anuric Physical Exam Constitutional: well developed, well nourished and cooperative; no acute distress On room air, no apparent distress, maneuvers readily for exam Eyes: EOM intact bilaterally ENMT: Ears: no external ear abnormality Nose: no external nose abnormality Mouth: + dry oral mucous membranes Neck: no nuchal rigidity Respiratory: normal respiratory effort Auscultation: lungs clear to aus cultation bilaterally and + diminished lung sounds Cardiovascular: RRR, no murmur, no edema Extremities: + AV fistula (+ t/b) Gastrointestinal (Abdomen): Inspection/Auscultation: normal bowel sounds Percussion/Palpation: abdomen soft; abdomen nontender Musculoskeletal: Extremities: strength 5/5 throughout Skin: no rashes, warm and dry + pallor Neurologic: sandy, fluent speech, no tremor Psychiatric: A+Ox3, euthymic affect Results & Data Vital Signs (Past 12 Hours) Vital Signs Temp Pulse Pulse Resp BP Pulse Ox 12/22/19 05:43 77 12/22/19 03:13 36.3 C L 80 19 128/86 94 12/21/19 22:24 36.6 C 75 18 144/74 H 97 12/21/19 21:28 36.8 C 78 18 158/107 H 95 12/21/19 19:12 79 Laboratory Results 12/22/19 06:[address] and CXR w/o acute process
[2019-12-22 07:41] LABS: BUN Creatinine Ratio 4.9 (10-20); Calcium 8.1 mg/dl (8.5-10.1); Creatinine Clr Calc Pharmacy 11.2 ml/min; Est GFR (African American) 6.5; Est GFR (Non-African American) 5.6; Magnesium 2.6 mg/dl (1.8-2.4); Phosphorus 8.1 mg/dl (2.5-4.9); Potassium 5.3 mmol/L (3.5-5.1)
[2019-12-22] MEDS ORDERED: LOSARTAN POTASSIUM 50 MG TAB PO SCH (09:00)
[2019-12-22] MEDS ORDERED: FAMOTIDINE 40 MG TABLET PO SCH (09:00)
[2019-12-22] MEDS ORDERED: carvediloL 3.125 MG TAB PO SCH (09:00)
[2019-12-22] MEDS ORDERED: SERTRALINE HCL 50 MG TABLET PO SCH (09:00)
[2019-12-22] MEDS: GABAPENTIN 400 MG CAP PO SCH ×2 (10:40→13:17)
[2019-12-22] MEDS: CALCIUM ACETATE 667 MG CAP/TAB PO SCH ×2 (10:41→13:17)
[2019-12-22] MEDS: HEPARIN SOD (PORCINE) 1000 UNIT/ML 10 ML VIAL IV SCH ×2 (12:10→12:11)
[2019-12-22] MEDS ORDERED: TRAMADOL HCL 50 MG TABLET PO ONE (12:29)
--- NOTE | 2019-12-22 12:30 | Hospitalist Progress Note ---
Date of Service December 22, 2019 Assessment & Plan (1) Hypertensive urgency: Patient is a 34 yr female with H/O End-stage renal disease on HD on MWF, history of FSGS, sp failed renal transplantation, DM II, HTN, depression, chronic anemia, migraines presented to ER with c/o HTN and has missed dialysis on 12/18/2019. She complained of feeling weak, dizzy and complained of headache after having dialysis on 12/21/19. Hypertensive Urgency Likely due to non compliance with dialysis States having her BP meds regularly CT head:No acute intracranial findings BP improved Had dialysis today Continue Losartan, Coreg (2) End-stage renal disease (ESRD): On HD on MWF, h/o FSGS, s/p failed renal transplantation Had HD today 12/22/2019 Appreciate Nephrology Input Continue home meds Next dialysis due tomorrow 12/23/19 (3) Elevated troponin: Chronic elevation of Troponin Likely due to renal Insufficiency Also ? demand ischemia due to Hypertensive Urgency (4) DM2 (diabetes mellitus, type 2): Diet controlled A1c: 5.1 in 04/2019. Random glucose: 86 Monitor (5) Anemia: Chronic anemia due to CKD Hb at baseline (6) Prolonged QT interval: Qtc: 524. H/O prolonged QT On Zoloft and trazodone Monitor QTC Avoid other QTc prolonged agents (7) Migraine: Continue Imitrex PRN (8) Depression: On Zoloft and trazodone DVT Px SCDs Code Status Full code Disposition Expect to discharge home Admission and Anticipated Discharge Date Admission Date: December 21, 2019 Subjective Patient is seen and examined at bedside Getting hemodialysis this morning Blood pressure improved Headache, dizziness improved as well Denies any chest pain, SOB, nausea, abd pain Planned to be discharged home after dialysis today Review of Systems Review of Systems: All systems reviewed & are unremarkable except as noted in HPI & below Physical Exam Physical Exam: Physical Exam: Vitals signs as noted above General Appearance:Obese, no apparent distress Head: normocephalic, Atraumatic Eyes: normal inspection, EOMI Neck: supple, Trachea midline Respiratory/Chest: Normal breath sounds, CTA, No accessory muscle use Cardiovascular: S1, S2, No murmur Abdomen/GI:Soft, Non tender, Bowel sounds present Extremities/Musculoskelatal:normal inspection, no edema Neurologic/Psych:AAOX3, grossly no focal neurological deficits Skin: normal color, warm Results & Data Results & Data ([facility]) Vital Signs (Past 12 Hours) Vital Signs Temp Pulse Pulse Pulse Resp BP BP 12/22/19 12:00 84 140/89 12/22/19 11:40 84 142/93 H 12/22/19 11:20 77 140/96 12/22/19 11:00 80 150/89 H 12/22/19 10:40 77 165/92 H 12/22/19 10:20 76 156/97 H 12/22/19 10:00 79 165/104 H 12/22/19 09:43 75 152/90 H 12/22/19 09:35 37 C 75 12/22/19 07:45 36.4 C L 75 18 158/98 H 12/22/19 07:16 73 12/22/19 05:43 77 12/22/19 03:13 36.3 C L 80 19 128/86 Pulse Ox 12/22/19 12:00 12/22/19 11:40 12/22/19 11:20 12/22/19 11:00 12/22/19 10:40 12/22/19 10:20 12/22/19 10:00 12/22/19 09:43 12/22/19 09:35 12/22/19 07:45 93 12/22/19 07:16 12/22/19 05:43 12/22/19 03:13 94 Laboratory Results Short CBC 12/22/19 Range/Units 06:14 WBC 4.81 (4.8-10.8) K/uL Hgb 11.5 L (12.0-16.0) g/dL Hct 35.7 L (37-47) % Plt Count 133 (130-400) K/uL BMP 12/22/19 06:14 Sodium 133 L Potassium 5.3 H D Chloride 96 L Carbon Dioxide 27 BUN 41 H Creatinine 8.44 H* D Glucose 94 Calcium 8.1 L (1) DM2 (diabetes mellitus, type 2) Diabetes mellitus watcher automat long goods insulin use: without mcfp use Diabetes mellitus complication status: with unspecified complications Qualified Code(s): E11.8 - Type 2 diabetes mellitus with unspecified complications (2) Anemia Anemia type: due to chronic kidney disease Chronic kidney disease stage: on chronic dialysis Qualified Code(s): N18.6 - End stage renal disease; D63.1 - Anemia in chronic kidney disease; Z99.2 - Dependence on renal dialysis (3) Depression Depression Type: unspecified Qualified Code(s): F32.9 - Major depressive disorder, single episode, unspecified
--- NOTE | 2019-12-22 13:35 | Discharge Summary ---
Date of Service December 22, 2019 Admission HPI Per Admitting Provider Pt is 34 y/o F with PMH end-stage renal disease on HD on MWF, history of FSGS, s/p failed renal transplantation, DM II, HTN, depression, chronic anemia, migraines presented to ER with c/o HTN. Patient missed dialysis on 12/18/2019. Had dialysis today. After dialysis patient reports felt weak and dizzy and she was noted to be hypertensive and referred to ER. In ER pt c/o GARNETT. Patient denies any dizziness or weakness sensation at this time. She reports that she is hungry. Patient reports taking her morning medications today. She reports her carvedilol dose had been decreased to 3.125 daily. Does not make urine. Denies fever/chills, diaphoresis, N/V/D/C, syncope, vision changes, neck pain, CP, SOB, orthopnea, palpitations, cough, sore throat, choking, otalgia, rhinorrhea, abdominal pain, paresthesias, extremity edema, rashes. Upon ER presentation patient noted to be hypertensive with BP 185/118 and given 2 doses of labetalol IV. BP down to 161/108. Nephrology was contacted who had suggested daily dialysis for the next 2 days however was unable to arrange outpatient patient so being admitted at this time. Admission Exam Per Admitting Provider Physical Exam Physical Exam: General: no distress, obese Head: normocephalic, atraumatic Eyes: PERRL, EOM's intact, conjunctiva non-injected, anicteric ENT: normal inspection external ears, nose, mucous membranes moist Neck: supple, trachea midline, non-tender Lungs: clear, no respiratory distress, no wheezing/rhonchi/rales CV: RRR, no murmur, no pretibial edema Abd: normal BS, soft, non-tender Ext: no cyanosis, no calf tenderness; fistula left arm with palpable thrill Neuro: A&O x 3, no focal deficits noted, normal affect Skin: warm, dry Principal Diagnosis Hypertensive Urgency End-stage renal disease Discharge Data Allergies Allergy/AdvReac Type Severity Reaction Status Date / Time cefaclor Allergy Intermediate Rash Verified 12/21/19 11:30 amoxicillin AdvReac Mild VOMITING Verified 12/21/19 11:30 clavulanic acid AdvReac Mild VOMITING Verified 12/21/19 11:30 Consultations 12/21/19 15:26 ED Decision to Admit Stat 12/21/19 18:18 Consult Nephrology Routine Ordered Studies 12/21/19 10:21 CT head/brain wo con Stat Hospital Course (1) Hypertensive urgency: Patient is a 34 yr female with H/O End-stage renal disease on HD on MWF, history of FSGS, sp failed renal transplantation, DM II, HTN, depression, chronic anemia, migraines presented to ER with c/o HTN and has missed dialysis on 12/18/2019. She complained of feeling weak, dizzy and complained of headache after having dialysis on 12/21/19. Hypertensive Urgency Likely due to non compliance with dialysis States having her BP meds regularly CT head:No acute intracranial findings BP improved Had dialysis today Continue Losartan, Coreg (2) End-stage renal disease (ESRD): On HD on MWF, h/o FSGS, s/p failed renal transplantation Had HD today 12/22/2019 Appreciate Nephrology Input Continue home meds Next dialysis due tomorrow 12/23/19 (3) Elevated troponin: Chronic elevation of Troponin Likely due to renal Insufficiency Also ? demand ischemia due to Hypertensive Urgency (4) DM2 (diabetes mellitus, type 2): Diet controlled A1c: 5.1 in 04/2019. Random glucose: 86 Monitor (5) Anemia: Chronic anemia due to CKD Hb at baseline (6) Prolonged QT interval: Qtc: 524. H/O prolonged QT On Zoloft and trazodone Monitor QTC Avoid other QTc prolonged agents (7) Migraine: Continue Imitrex PRN (8) Depression: On Zoloft and trazodone DVT Px SCDs Code Status Full code Disposition Expect to discharge home Total Time Total Time Spent Total Time Spent (In Minutes): 39 minutes Total Time Includes: Examination of the Patient, Discharge Planning, Medication Reconciliation, Communication With Other Providers and Other Discharge Plan Discharge Items Patient Disposition: Home - Self-Care Reason For Visit: HTN Discharge Diagnosis: Hypertensive Urgency End-stage renal disease Condition on Discharge: Good Activity: Resume your previous activity Exercise/Sports: Gradually increase as tolerated Non-emergency contact: Primary Care Provider and Steward/Stewardess Deck Call non-emergency contact if: you have any medication questions, your symptoms worsen, your pain is not controlled, your pain is worsening, your pain is unusual for you, your pain is concerning for you and you have a fever Follow-up/Referrals: Adolph Aldridge MD [Primary Care Provider] - Diet: Carb Consistent or DM2 and Dialysis Renal Addtl Attending Provider Instructions: Follow up with on December 31, 2019 at 11:05AM for routine care as scheduled Follow up with your Steward/Stewardess Deck for dialysis tomorrow 12/23/19 Seek immediate medical attention if your symptoms reoccur or worsen Pending Studies at Discharge: No Stand-Alone Forms: My [facility] [employer], Smoking Cessation Medications and DC Order Prescriptions: Continued loratadine [Claritin] 10 mg Tablet 10 mg PO DAILY PRN (Reason: Allergy Symptoms) RF: 0 losartan 100 mg tablet 100 mg PO QAM RF: 0 sumatriptan succinate [Imitrex] 50 mg tablet 50 mg PO DIRECTED MDD 100 MG/24 HOURS PRN (Reason: Migraine Headache) RF: 0 albuterol sulfate [Ventolin HFA] 90 mcg/actuation HFA aerosol inhaler 2 puff Inhalation QID PRN (Reason: Shortness Of Breath Or Wheezing) RF: 0 calcium acetate(phosphat bind) 667 mg capsule 1,334 mg PO TIDM RF: 0 gabapentin [Neurontin] 400 mg capsule 800 mg PO HS RF: 0 gabapentin [Neurontin] 400 mg Capsule 400 mg PO DIRECTED RF: 0 famotidine [Pepcid] 40 mg Tablet 40 mg PO QAM RF: 0 sertraline [Zoloft] 100 mg tablet 150 mg PO QAM RF: 0 trazodone 50 mg tablet 150 mg PO HS RF: 0 Auryxia 210 mg iron tablet 420 mg PO TIDM RF: 0 calcium acetate(phosphat bind) 667 mg capsule 667 mg PO UD RF: 0 carvedilol 3.125 mg tablet 3.125 mg PO DAILY RF: 0 cinacalcet 30 mg tablet 30 mg PO DAILY RF: 0 Discontinued ondansetron 4 mg tablet,disintegrating 4 mg PO Q6 PRN (Reason: nausea and vomiting) Qty: 14 RF: 0 Discharge Orders: Discharge Order (Routine); Ordered 12/22/19 Ordered By: Anthony Zendejas Admission Data Admit Date/Time: 12/21/19 15:45 Attending Provider: Anthony Zendejas Admit Provider: Ragini Glover Primary Care Provider: Adolph Aldridge Other Providers: Ragini Glover ; Leah Nieves Other Interventions: Discharge Summary Assessment (RN) Last Done: 12/22/19 13:48 DC Date/Time DO NOT enter until pt leaves facility: 12/22/19 14:21
--- NOTE | 2019-12-29 06:24 | Coding Query ---
To promote full compliance with coding requirements relating to patient care, provider participation is requested in all cases of human services program specialist uncertainty. Please assist us with the question(s) below: Coding Question(s): The diagnosis below was documented in the ER and Nephrology Consultation, then subsequently fell off all further documentation. Please indicate if it is still a possible diagnosis or ruled out. Physician's Response(s): HYPERTENSIVE ENCEPHALOPATHY ( ) Diagnosed and POA ( ) Diagnosed and not POA ( x ) Ruled out ( ) Other (please specify) MTDD
== END 2019-12-22 14:21 | disposition home or self-care (01) | DRG 304 ==
LOC: ED 10:04 → SUATTDRO 15:45 → 2N 15:45

== ENCOUNTER 2020-08-10 08:13 | Inpatient (IN) ==
[2020-08-10] MEDS ORDERED: SODIUM CHLORIDE 0.9% 1000ML 500 ML IV ONE ×2 (08:30→11:29)
--- NOTE | 2020-08-10 09:01 | Emergency Department Note ---
Impression & Plan Acute renal failure, Anemia, Acute alteration in mental status, Acute hypotension ED Provider Note NAME: NATHALIA DUTTON AGE: 34 SEX: F : 1985 ARRIVES VIA: Ambulance INFORMANT: Patient, ED PROVIDER(S): Dash Villatoro DO CHIEF COMPLAINT: Needs dialysis HPI: The patient is a 34-year-old female who presented to the emergency department for an evaluation because her dialysis fistula was not working. The patient has a history of recent thrombectomy of her fistula in her left upper extremity. The patient has not had dialysis in 5 days. She presented to the emergency department by ambulance from dialysis because they could not access her fistula. The patient is obtunded and is not able to answer questions appropriately. She falls asleep easily when not being prompted. She does deny any chest pain or trouble with nausea or vomiting. She is had no worsening lower extremity edema. She does complain of left upper extremity pain from the procedure. ROS: See above HPI for pertinent positives & negatives. A total of 10 systems reviewed and were otherwise negative. PAST MEDICAL HISTORY: See Below PAST SURGICAL HISTORY: See Below FAMILY HISTORY: See Below SOCIAL HISTORY: See Below HOME MEDICATIONS: See Below ALLERGIES: See Below VITALS: See Below PHYSICAL EXAMINATION: GENERAL: The patient is awake to verbal commands. She falls asleep easily when not being stimulated. EYES: The conjunctivae are clear. The pupils are round and reactive. EARS, NOSE, MOUTH AND THROAT: The nose is without any evidence of any deformity. NECK: The neck is nontender and supple. RESPIRATORY: Normal respiratory effort is noted there is no evidence of wheezing rhonchi or rales CARDIOVASCULAR: Regular rate and rhythm noted there no murmurs rubs or gallops normal S1 normal S2. GASTROINTESTINAL: The abdomen is soft. Abdomen is nontender. MUSCULOSKELETAL/EXTREMITIES: There is no evidence of gross deformity full range of motion is noted in the hips and shoulders. SKIN: There is no obvious evidence of any rash. There is a previous surgical site noted in the left upper extremity. Skin tatum are in place. There is ecchymosis noted. No dehiscence or drainage was appreciated. NEUROLOGIC: Patient is oriented to person place and situation. Strength was symmetric. MEDICAL DECISION MAKING: The patient is a 34-year-old female who has a history of end-stage renal disease requiring dialysis who presented to the emergency department from dialysis for an evaluation of altered mental status and inability to access her fistula. The patient had revision of her fistula recently. There is significant swelling as well as postoperative changes noted. On ultrasound the fistula appears to be patent. The patient has not had dialysis in 5 days. The patient was found of hypotension. She was treated with IV fluids. I discussed the patient's labo ratory and radiographic studies with her. She was also found to have severe anemia and was ordered blood transfusion in the emergency department. I consented the patient for transfusion. I discussed the patient's condition with her primary astronomy department chair. She may need temporary access until the fistula in her left arm can be accessed better. [facility] have agreed to evaluate the patient in the emergency department for further management and disposition. The patient was also very obtunded. She was recently started on pain medication after having the fistula revised. It is possible that she took the medication appropriately or possibly it is not being metabolized correctly because of her renal failure. Triage Nursing notes reviewed. Prior medical records reviewed Vital Signs: reviewed and remarkable for hypotension. Differential diagnosis: Infection, dehydration, metabolic abnormality, hypo/hyperglycemia, electrolyte disturbance, anemia, hypoxia, cardiac sources, intracerebral event, toxicologic, neurologic, as well as other pathologies. ER treatment provided: See below Diagnostics interpreted by me: ECG: EKG was obtained in the emergency department. My interpretation is normal sinus rhythm at [address]pm. Inferior and lateral ST depressions with T wave versions were noted. This was compared to a tracing from July 14, 2020. No significant changes were noted. Cardiac Monitoring: An order was placed for continuous cardiac monitoring. The monitor shows a rate of 85 bpm with sinus rhythm. Laboratory studies: As stated above and show below. Imaging studies: See below Consultation(s): 1130: I discussed this case with Dr. Esteban. She is the patient's primary astronomy department chair. 1155: I discussed this case with Maida who [facility] ED COURSE: Procedures: none PDMP:reviewed Critical Care: I have personally spent greater than 60 minutes of critical care time in the direct management of this patient. This includes bedside care, interpretation of diagnostic studies, and testing, discussion with consultants, patient, and family members, and other required patient management activities. This 60 minutes is in excess of all separately billable procedures. Past Med/Surg History Medical History Anemia Anxiety and depression Asthma "BEEN A WHILE" SINCE USING LAST RESCUE INHALER AVF (arteriovenous fistula) Bipolar disorder CKD (chronic kidney disease) stage V requiring chronic dialysis Dialysis patient SATURDAY/SAT/SATURDAY AT [facility] DM2 (diabetes mellitus, type 2) CONTROLLED WITH DIET AND EXERCISE Fistula LEFT ARM FSGS (focal segmental glomerulosclerosis) DX INITIALLY 2012 (CAUSING ESRD 2012) GERD (gastroesophageal reflux disease) HTN (hypertension) Migraine Peripheral neuropathy Prolonged QT interval Restless leg syndrome Surgical History H/O eye surgery LASER SURGERY LEFT H/O hernia repair ABDOMINAL WALL H/O knee surgery LEFT KNEE X 2 H/O tubal ligation H/O: X 2 History of cardiac cath 2016 NO STENTS History of cholecystectomy History of colonoscopy History of tooth extraction JUST ONE TOOTH Kidney transplant recipient 2013 AT [facility] Family History Grandmother Hx of CABG Mother Diabetes Father Crohn's disease Grandfather (Maternal) Diabetes Uncle Diabetes Social History (Updated 08/10/20 @ 12:28 by Maida Cristina PA-C) Smoking Status: Current every day smoker Tobacco Type: Cigarettes Cigarettes Per Day: 1/2 PPD; Second Hand Exposure: No; Hx Alcohol Use: No Hx Substance Use: No Preferred Language: Guyanese Communication Ability: Effective 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 Beliefs That Will Affect Care: None marital status: Current Living Situation: Significant Other current occupational status: employed How many Children do You have: 2 Feels Safe at Home: Yes Assistive Devices: Glasses Allergies Allergies Allergy/AdvReac Type Severity Reaction Status Date / Time cefaclor Allergy Intermediate Rash Verified 08/05/20 09:34 amoxicillin AdvReac Mild VOMITING Verified 08/05/20 09:34 clavulanic acid AdvReac Mild VOMITING Verified 08/05/20 09:34 latex AdvReac Unknown Unverified 08/10/20 11:05 Home Meds Home Medications Medication Instructions Recorded Confirmed gabapentin [Neurontin] See Rx Instructions .ROUTE .COMPLEX 01/24/19 08/10/20 Auryxia 210 mg PO UD 10/17/19 08/10/20 trazodone 150 mg PO HS 10/17/19 08/10/20 losartan 100 mg PO QAM 11/12/19 08/10/20 carvedilol 3.125 mg PO BID 12/21/19 08/10/20 cinacalcet [Sensipar] 60 mg PO PM 12/21/19 08/10/20 hydroxyzine HCl 25 mg PO Q6 PRN 04/21/20 08/10/20 calcium acetate(phosphat bind) 667 mg PO UD 06/22/20 08/10/20 albuterol sulfate 2 puff INHALATION QID 08/01/20 08/10/20 lorazepam 0.5 mg PO Q8 PRN 08/01/20 08/10/20 sertraline 150 mg PO QAM 08/02/20 08/10/20 B complex-vitamin C-folic acid 1 tab PO DAILY 08/10/20 08/10/20 [Renal Vitamin] amlodipine 10 mg PO DAILY 08/10/20 08/10/20 Previous Rx's Medication Instructions Recorded oxycodone [Roxicodone] 5 mg PO Q8H PRN #3 tab 08/02/20 oxycodone-acetaminophen [Percocet] 1 tab PO Q4H PRN #40 tab 08/05/20 Results & Data (ED) Vital Signs Vital Signs - 24 hr 08/10/20 08:18 08/10/20 08:20 08/10/20 08:37 Temperature 36.7 C Temperature Source Oral Pulse Rate 75 83 Pulse Rate [Apical] Pulse Rate from SpO2 Sensor 76 76 Respiratory Rate 14 22 Blood Pressure 86/65 L 92/54 L Blood Pressure [Right Arm] Blood Pressure Mean 78 64 Blood Pressure Mean [Right Arm] Pulse Oximetry 95 93 Oxygen Delivery Method Sepsis Recent Fever Within 48 Hours No Sepsis New/Unexplained Change in Mental Status N/A Sepsis Action Taken by Nursing No Action Required 08/10/20 08:38 08/10/20 08:40 08/10/20 08:50 Temperature Temperature Source Pulse Rate 82 76 71 Pulse Rate [Apical] Pulse Rate from SpO2 Sensor 77 72 Respiratory Rate 21 10 L 16 Blood Pressure Blood Pressure [Right Arm] Blood Pressure Mean Blood Pressure Mean [Right Arm] Pulse Oximetry 95 93 Oxygen Delivery Method Sepsis Recent Fever Within 48 Hours Sepsis New/Unexplained Change in Mental Status Sepsis Action Taken by Nursing 08/10/20 09:00 08/10/20 09:10 08/10/20 09:15 Temperature Temperature Source Pulse Rate 73 72 73 Pulse Rate [Apical] Pulse Rate from SpO2 Sensor 74 74 72 Respiratory Rate 16 14 16 Blood Pressure 94/50 L Blood Pressure [Right Arm] Blood Pressure Mean 58 Blood Pressure Mean [Right Arm] Pulse Oximetry 89 L 91 90 Oxygen Delivery Method Sepsis Recent Fever Within 48 Hours Sepsis New/Unexplained Change in Mental Status Sepsis Action Taken by Nursing 08/10/20 09:20 08/10/20 09:22 08/10/20 09:30 Temperature Temperature Source Pulse Rate 71 73 Pulse Rate [Apical] 72 Pulse Rate from SpO2 Sensor 73 75 Respiratory Rate 16 14 8 L Blood Pressure 84/71 L Blood Pressure [Right Arm] 94/50 L Blood Pressure Mean 75 Blood Pressure Mean [Right Arm] 64 Pulse Oximetry 90 93 91 Oxygen Delivery Method Room Air Sepsis Recent Fever Within 48 Hours Sepsis New/Unexplained Change in Mental Status Sepsis Action Taken by Nursing 08/10/20 09:31 08/10/20 10:12 08/10/20 10:20 Temperature Temperature Source Pulse Rate 71 70 68 Pulse Rate [Apical] Pulse Rate from SpO2 Sensor 72 68 Respiratory Rate 10 L 13 10 L Blood Pressure Blood Pressure [Right Arm] Blood Pressure Mean Blood Pressure Mean [Right Arm] Pulse Oximetry 92 100 Oxygen Delivery Method Sepsis Recent Fever Within 48 Hours Sepsis New/Unexplained Change in Mental Status Sepsis Action Taken by Nursing 08/10/20 10:25 08/10/20 10:30 08/10/20 10:31 Temperature Temperature Source Pulse Rate 71 71 71 Pulse Rate [Apical] Pulse Rate from SpO2 Sensor 72 71 72 Respiratory Rate 6 L 7 L 7 L Blood Pressure 74/55 L 70/48 L Blood Pressure [Right Arm] Blood Pressure Mean 65 58 Blood Pressure Mean [Right Arm] Pulse Oximetry 99 100 100 Oxygen Delivery Method Sepsis Recent Fever Within 48 Hours Sepsis New/Unexplained Change in Mental Status Sepsis Action Taken by Nursing 08/10/20 10:37 08/10/20 10:40 08/10/20 10:50 Temperature Temperature Source Pulse Rate 72 72 68 Pulse Rate [Apical] Pulse Rate from SpO2 Sensor 71 73 70 Respiratory Rate 7 L 7 L 15 Blood Pressure 103/55 L Blood Pressure [Right Arm] Blood Pressure Mean 65 Blood Pressure Mean [Right Arm] Pulse Oximetry 100 100 99 Oxygen Delivery Method Sepsis Recent Fever Within 48 Hours Sepsis New/Unexplained Change in Mental Status Sepsis Action Taken by Nursing 08/10/20 11:00 08/10/20 11:10 08/10/20 11:14 Temperature Temperature Source Pulse Rate 72 69 73 Pulse Rate [Apical] Pulse Rate from SpO2 Sensor 71 68 73 Respiratory Rate 9 L 16 14 Blood Pressure 111/54 L Blood Pressure [Right Arm] Blood Pressure Mean 62 Blood Pressure Mean [Right Arm] Pulse Oximetry 97 94 93 Oxygen Delivery Method Sepsis Recent Fever Within 48 Hours Sepsis New/Unexplained Change in Mental Status Sepsis Action Taken by Nursing 08/10/20 11:20 08/10/20 11:30 08/10/20 11:31 Temperature Temperature Source Pulse Rate 72 70 68 Pulse Rate [Apical] Pulse Rate from SpO2 Sensor 72 72 69 Respiratory Rate 12 14 16 Blood Pressure 99/58 L Blood Pressure [Right Arm] Blood Pressure Mean 73 Blood Pressure Mean [Right Arm] Pulse Oximetry 95 94 95 Oxygen Delivery Method Sepsis Recent Fever Within 48 Hours Sepsis New/Unexplained Change in Mental Status Sepsis Action Taken by Nursing 08/10/20 11:40 08/10/20 11:50 08/10/20 12:00 Temperature Temperature Source Pulse Rate 70 73 71 Pulse Rate [Apical] Pulse Rate from SpO2 Sensor 72 72 72 Respiratory Rate 14 14 10 L Blood Pressure 119/56 L Blood Pressure [Right Arm] Blood Pressure Mean 64 Blood Pressure Mean [Right Arm] Pulse Oximetry 96 96 97 Oxygen Delivery Method Sepsis Recent Fever Within 48 Hours Sepsis New/Unexplained Change in Mental Status Sepsis Action Taken by Nursing 08/10/20 12:01 08/10/20 12:10 08/10/20 12:16 Temperature Temperature Source Pulse Rate 70 73 Pulse Rate [Apical] Pulse Rate from SpO2 Sensor 70 Respiratory Rate 14 18 Blood Pressure Blood Pressure [Right Arm] Blood Pressure Mean Blood Pressure Mean [Right Arm] Pulse Oximetry 97 97 Oxygen Delivery Method Room Air Sepsis Recent Fever Within 48 Hours Sepsis New/Unexplained Change in Mental Status Sepsis Action Taken by Nursing 08/10/20 12:20 08/10/20 12:30 08/10/20 12:40 Temperature Temperature Source Pulse Rate 76 72 73 Pulse Rate [Apical] Pulse Rate from SpO2 Sensor 75 72 73 Respiratory Rate 22 19 18 Blood Pressure 102/47 L Blood Pressure [Right Arm] Blood Pressure Mean 70 Blood Pressure Mean [Right Arm] Pulse Oximetry 100 100 98 Oxygen Delivery Method Sepsis Recent Fever Within 48 Hours Sepsis New/Unexplained Change in Mental Status Sepsis Action Taken by Nursing 08/10/20 12:50 08/10/20 13:00 08/10/20 13:01 Temperature Temperature Source Pulse Rate 70 70 72 Pulse Rate [Apical] Pulse Rate from SpO2 Sensor 72 Respiratory Rate 20 12 8 L Blood Pressure 106/53 L Blood Pressure [Right Arm] Blood Pressure Mean 72 Blood Pressure Mean [Right Arm] Pulse Oximetry 100 Oxygen Delivery Method Sepsis Recent Fever Within 48 Hours Sepsis New/Unexplained Change in Mental Status Sepsis Action Taken by Intermediate Medications Current Medication List: was personally reviewed by me Laboratory Data Attestation: I reviewed the patient's lab results. Result diagrams: 08/10/20 09:00 08/10/20 09:00 Lab Results 08/10/20 08/10/20 08/10/20 Range/Units 09:00 09:00 09:00 WBC 8.94 (4.8-10.8) K/uL RBC 2.03 L (4.2-5.4) M/uL Hgb 6.7 L* (12.0-16.0) g/dL Hct 20.2 L* (37-47) % MCV 99.5 (80-100) fL MCH 33.0 (25-34) pg MCHC 33.2 (32-36) g/dL RDW Std Deviation 53.6 H (36.4-46.3) fL RDW Coeff of Laith 14.9 H (11.5-14.5) % Plt Count 179 (130-400) K/uL MPV 9.2 (7.4-10.4) fL Immature Gran % (Auto) 0.3 % Neut % (Auto) 84.4 % Lymph % (Auto) 8.9 % Bonner % (Auto) 5.1 % Eos % (Auto) 1.1 % Baso % (Auto) 0.2 % Neut # (Auto) 7.53 H (1.4-6.5) K/uL Lymph # (Auto) 0.80 L (1.2-3.4) K/uL Bonner # (Auto) 0.46 (0.11-0.59) K/uL Eos # (Auto) 0.10 (0-0.5) K/uL Baso # (Auto) 0.02 (0-0.2) K/uL Immature Gran # (Auto) 0.03 H (0.00-0.02) K/uL ESR (0-21) mm/hr PT 10.2 (9.0-12.0) Seconds INR 1.0 (0.9-1.1) APTT 25.4 (21.0-31.0) Seconds PTT Ratio 0.9 VBG pH (7.36-7.41) VBG pCO2 (38-50) mmHg VBG pO2 mmHg VBG HCO3 mmol/L VBG O2 Saturation % VBG Base Excess mEq/L Barometric Pressure mm/Hg Sodium 131 L (136-145) mmol/L Potassium 5.1 (3.5-5.1) mmol/L Chloride 97 L (98-107) mmol/L Carbon Dioxide 20 L (21-32) mmol/L Anion Gap 15.0 H (3-11) BUN 75 H (7-18) mg/dl Creatinine 15.00 H* (0.6-1.2) mg/dl Est Cr Clr Drug Dosing 6.6 ml/min Est GFR ( Amer) 3.2 Est GFR (Non-Af Amer) 2.8 BUN/Creatinine Ratio 5.0 L (10-20) Glucose 109 H (70-99) mg/dl Lactate (0.4-2.0) mmol/L Calcium 8.5 (8.5-10.1) mg/dl Magnesium 2.7 H (1.8-2.4) mg/dl Total Bilirubin 0.4 (0.2-1) mg/dl AST 12 L (15-37) U/L ALT 38 (12-78) U/L Alkaline Phosphatase 123 H (45-117) U/L Ammonia (11-32) umol/L Troponin I 0.037 (0-0.045) ng/ml C-Reactive Protein 5.69 H (0-0.29) mg/dl Total Protein 6.5 (6.4-8.2) gm/dl Albumin 2.6 L (3.4-5.0) gm/dl Globulin 3.9 (2.5-4.0) gm/dl Albumin/Globulin Ratio 0.7 L (0.9-2) Lipase 112 (73-393) U/L Procalcitonin (0-0.5) ng/ml Ethyl Alcohol mg/dL (0-3) mg/dl SARS-CoV-2 Ag (Rapid) Blood Type Antibody Screen Crossmatch 08/10/20 08/10/20 08/10/20 Range/Units 09:00 09:00 09:00 WBC (4.8-10.8) K/uL RBC (4.2-5.4) M/uL Hgb (12.0-16.0) g/dL Hct (37-47) % MCV (80-100) fL MCH (25-34) pg MCHC (32-36) g/dL RDW Std Deviation (36.4-46.3) fL RDW Coeff of Laith (11.5-14.5) % Plt Count (130-400) K/uL MPV (7.4-10.4) fL Immature Gran % (Auto) % Neut % (Auto) % Lymph % (Auto) % Bonner % (Auto) % Eos % (Auto) % Baso % (Auto) % Neut # (Auto) (1.4-6.5) K/uL Lymph # (Auto) (1.2-3.4) K/uL Bonner # (Auto) (0.11-0.59) K/uL Eos # (Auto) (0-0.5) K/uL Baso # (Auto) (0-0.2) K/uL Immature Gran # (Auto) (0.00-0.02) K/uL ESR 33 H (0-21) mm/hr PT (9.0-12.0) Seconds INR (0.9-1.1) APTT (21.0-31.0) Seconds PTT Ratio VBG pH (7.36-7.41) VBG pCO2 (38-50) mmHg VBG pO2 mmHg VBG HCO3 mmol/L VBG O2 Saturation % VBG Base Excess mEq/L Barometric Pressure mm/Hg Sodium (136-145) mmol/L Potassium (3.5-5.1) mmol/L Chloride (98-107) mmol/L Carbon Dioxide (21-32) mmol/L Anion Gap (3-11) BUN (7-18) mg/dl Creatinine (0.6-1.2) mg/dl Est Cr Clr Drug Dosing ml/min Est GFR ( Amer) Est GFR (Non-Af Amer) BUN/Creatinine Ratio (10-20) Glucose (70-99) mg/dl Lactate 0.7 (0.4-2.0) mmol/L Calcium (8.5-10.1) mg/dl Magnesium (1.8-2.4) mg/dl Total Bilirubin (0.2-1) mg/dl AST (15-37) U/L ALT (12-78) U/L Alkaline Phosphatase (45-117) U/L Ammonia 13.2 (11-32) umol/L Troponin I (0-0.045) ng/ml C-Reactive Protein (0-0.29) mg/dl Total Protein (6.4-8.2) gm/dl Albumin (3.4-5.0) gm/dl Globulin (2.5-4.0) gm/dl Albumin/Globulin Ratio (0.9-2) Lipase (73-393) U/L Procalcitonin (0-0.5) ng/ml Ethyl Alcohol mg/dL (0-3) mg/dl SARS-CoV-2 Ag (Rapid) Blood Type Antibody Screen Crossmatch 08/10/20 08/10/20 08/10/20 Range/Units 09:00 09:00 09:00 WBC (4.8-10.8) K/uL RBC (4.2-5.4) M/uL Hgb (12.0-16.0) g/dL Hct (37-47) % MCV (80-100) fL MCH (25-34) pg MCHC (32-36) g/dL RDW Std Deviation (36.4-46.3) fL RDW Coeff of Laith (11.5-14.5) % Plt Count (130-400) K/uL MPV (7.4-10.4) fL Immature Gran % (Auto) % Neut % (Auto) % Lymph % (Auto) % Bonner % (Auto) % Eos % (Auto) % Baso % (Auto) % Neut # (Auto) (1.4-6.5) K/uL Lymph # (Auto) (1.2-3.4) K/uL Bonner # (Auto) (0.11-0.59) K/uL Eos # (Auto) (0-0.5) K/uL Baso # (Auto) (0-0.2) K/uL Immature Gran # (Auto) (0.00-0.02) K/uL ESR (0-21) mm/hr PT (9.0-12.0) Seconds INR (0.9-1.1) APTT (21.0-31.0) Seconds PTT Ratio VBG pH 7.24 L (7.36-7.41) VBG pCO2 44 (38-50) mmHg VBG pO2 46 mmHg VBG HCO3 18 mmol/L VBG O2 Saturation 74.9 % VBG Base Excess -8.4 mEq/L Barometric Pressure 740.2 mm/Hg Sodium (136-145) mmol/L Potassium (3.5-5.1) mmol/L Chloride (98-107) mmol/L Carbon Dioxide (21-32) mmol/L Anion Gap (3-11) BUN (7-18) mg/dl Creatinine (0.6-1.2) mg/dl Est Cr Clr Drug Dosing ml/min Est GFR ( Amer) Est GFR (Non-Af Amer) BUN/Creatinine Ratio (10-20) Glucose (70-99) mg/dl Lactate (0.4-2.0) mmol/L Calcium (8.5-10.1) mg/dl Magnesium (1.8-2.4) mg/dl Total Bilirubin (0.2-1) mg/dl AST (15-37) U/L ALT (12-78) U/L Alkaline Phosphatase (45-117) U/L Ammonia (11-32) umol/L Troponin I (0-0.045) ng/ml C-Reactive Protein (0-0.29) mg/dl Total Protein (6.4-8.2) gm/dl Albumin (3.4-5.0) gm/dl Globulin (2.5-4.0) gm/dl Albumin/Globulin Ratio (0.9-2) Lipase (73-393) U/L Procalcitonin 0.54 H (0-0.5) ng/ml Ethyl Alcohol mg/dL < 3.0 (0-3) mg/dl SARS-CoV-2 Ag (Rapid) Blood Type Antibody Screen Crossmatch 08/10/20 08/10/20 08/10/20 Range/Units 10:26 12:16 12:34 WBC (4.8-10.8) K/uL RBC (4.2-5.4) M/uL Hgb (12.0-16.0) g/dL Hct (37-47) % MCV (80-100) fL MCH (25-34) pg MCHC (32-36) g/dL RDW Std Deviation (36.4-46.3) fL RDW Coeff of Laith (11.5-14.5) % Plt Count (130-400) K/uL MPV (7.4-10.4) fL Immature Gran % (Auto) % Neut % (Auto) % Lymph % (Auto) % Bonner % (Auto) % Eos % (Auto) % Baso % (Auto) % Neut # (Auto) (1.4-6.5) K/uL Lymph # (Auto) (1.2-3.4) K/uL Bonner # (Auto) (0.11-0.59) K/uL Eos # (Auto) (0-0.5) K/uL Baso # (Auto) (0-0.2) K/uL Immature Gran # (Auto) (0.00-0.02) K/uL ESR (0-21) mm/hr PT (9.0-12.0) Seconds INR (0.9-1.1) APTT (21.0-31.0) Seconds PTT Ratio VBG pH (7.36-7.41) VBG pCO2 (38-50) mmHg VBG pO2 mmHg VBG HCO3 mmol/L VBG O2 Saturation % VBG Base Excess mEq/L Barometric Pressure mm/Hg Sodium (136-145) mmol/L Potassium (3.5-5.1) mmol/L Chloride (98-107) mmol/L Carbon Dioxide (21-32) mmol/L Anion Gap (3-11) BUN (7-18) mg/dl Creatinine (0.6-1.2) mg/dl Est Cr Clr Drug Dosing ml/min Est GFR ( Amer) Est GFR (Non-Af Amer) BUN/Creatinine Ratio (10-20) Glucose (70-99) mg/dl Lactate (0.4-2.0) mmol/L Calcium (8.5-10.1) mg/dl Magnesium (1.8-2.4) mg/dl Total Bilirubin (0.2-1) mg/dl AST (15-37) U/L ALT (12-78) U/L Alkaline Phosphatase (45-117) U/L Ammonia (11-32) umol/L Troponin I (0-0.045) ng/ml C-Reactive Protein (0-0.29) mg/dl Total Protein (6.4-8.2) gm/dl Albumin (3.4-5.0) gm/dl Globulin (2.5-4.0) gm/dl Albumin/Globulin Ratio (0.9-2) Lipase (73-393) U/L Procalcitonin (0-0.5) ng/ml Ethyl Alcohol mg/dL (0-3) mg/dl SARS-CoV-2 Ag (Rapid) Cancelled Negative Blood Type A Positive Antibody Screen NEGATIVE Crossmatch See Detail Administered Medications Discontinued Medications Sodium Chloride (Nss 1000ml) 500 mls @ 999 mls/hr IV .Q31M ONE Stop: 08/10/20 09:00 Last Infusion: 08/10/20 09:49 Dose: 0 mls/hr Documented by: [id number] Admin: 08/10/20 09:13 Dose: 999 mls/hr Documented by: [id number] Imaging Data Radiologist's Impression: Patient: NATHALIA DUTTON Admit Date: 08/10/20 MR#: [id number] Address1: [address] [facility] [address] Acct ID:[id number] Address2: Date: 1985 [facility] Zip: [place] [address] Age: 34 Location: ED Sex: F Room/Bed: Att Phy: Diagnosis: Unable to Access Fistula, Day5 no Dialysis Aishwarya Phy: Adolph Aldridge MD Service Date: 08/10/20 Fam Phy: Interpreting Phy: Sebastian Mcclain MD Admit Phy: Ordering Phy: Dash Villatoro DO cc: ~ US hemodialysis access CLINICAL HISTORY: not able to access COMPARISON STUDY: AV fistula ultrasound August 01, 2020. TECHNIQUE: Grayscale, color and duplex doppler sonography of the left upper extremity AV fistula was performed. FINDINGS: Interval revision is noted since prior exam of August 01, 2020 with placement of an AV graft. The graft is patent. Velocity ranges up to 348 cm/s at the level of the antecubital fossa. Evaluation of the graft within the proximal upper arm is difficult given shadowing. Note is made of a complex fluid collection located along anterior aspect of the graft that measures 15.2 x 2.7 x 6.1 cm. No additional fluid collections are identified. IMPRESSION: Interval AV fistula revision with placement of an AV graft which is patent. 15.2 x 2.7 x 6.1 cm elongated fluid collection along the anterior aspect of the graft favors a hematoma and may account for difficulty accessing the graft. ACT 112: Negative or not required by law. Electronically signed by: Sebastian Mcclain M.D. 08/10/2020 10:58 AM Dictated: 08/10/20 1044 Transcribed: 08/10/20 1048 Patient: NATHALIA DUTTON Admit Date: 08/10/20 MR#: [id number] Address1: [address] [address] Acct ID:[id number] Address2: Date: 1985 [facility] Zip: [place] [address] Age: 34 Location: ED Sex: F Room/Bed: Att Phy: Diagnosis: Unable to Access Fistula, Day5 no Dialysis Aishwarya Phy: Adolph Aldridge MD Service Date: 08/10/20 Fam Phy: Interpreting Phy: Win Foster MD Admit Phy: Ordering Phy: Dash Villatoro DO cc: ~ XR chest 1V portable CLINICAL HISTORY: Atypical chest pain COMPARISON STUDY: 07/14/2020 FINDINGS: The heart appears enlarged. There is mild elevation of the interstitium. While this may be in part secondary technical factors given a suboptimal inspiration AP technique, mild pulmonary vascular congestion or a subtle interstitial inflammatory process cannot be excluded. There is no lobar consolidation. There are no pleural effusions.[ IMPRESSION: 1. No evidence of focal pulmonary consolidation 2. Subtle elevation of the interstitium. It is unclear whether this relates to technical factors given the patient's body habitus, poor inspiration, and AP technique, or whether this is secondary to mild pulmonary vascular congestion or a subtle interstitial inflammatory process. Clinical correlation advocated. ACT 112: Negative or not required by law. Electronically signed by: Win Foster M.D. 08/10/2020 11:34 AM Dictated: 08/10/20 1132 Transcribed: 08/10/201131 Prescription Drug Monitoring [place] Drug Monitoring Program reviewed and findings noted below Prescription Drug Findings: The patient was recently started on pain medication postoperatively. Blood Pressure Blood Pressure Findings: Low blood pressure Discharge Plan Visit Data Chief Complaint: Illness Stated Complaint: Unable to Access Fistula, Day5 no Dialysis ED Provider: Dash Villatoro Discharge Problem: Acute renal failure, Anemia, Acute alteration in mental status, Acute hypotension Patient Disposition: Being Evaluated by Hospitalist Condition: Good Forms Stand Alone Forms: [email or web address] Prescriptions Prescriptions: No Action losartan 100 mg tablet 100 mg PO QAM RF: 0 calcium acetate(phosphat bind) 667 mg capsule 667 mg PO UD RF: 0 sertraline 100 mg tablet 150 mg PO QAM RF: 0 oxycodone [Roxicodone] 5 mg tablet 5 mg PO Q8H PRN (Reason: pain, severe) Qty: 3 RF: 0 gabapentin [Neurontin] 400 mg Capsule See Rx Instructions .ROUTE .COMPLEX RF: 0 trazodone 50 mg tablet 150 mg PO HS RF: 0 Auryxia 210 mg iron tablet 210 mg PO UD RF: 0 carvedilol 3.125 mg tablet 3.125 mg PO BID RF: 0 cinacalcet [Sensipar] 30 mg tablet 60 mg PO PM RF: 0 hydroxyzine HCl 25 mg tablet 25 mg PO Q6 PRN (Reason: Anxiety) RF: 0 albuterol sulfate 90 mcg/actuation HFA aerosol inhaler 2 puff INHALATION QID RF: 0 lorazepam 0.5 mg tablet 0.5 mg PO Q8 PRN (Reason: Panic Attack(S)) RF: 0 oxycodone-acetaminophen [Percocet] 5-325 mg tablet 1 tab PO Q4H PRN (Reason: pain) Qty: 40 RF: 0 amlodipine 10 mg Tablet 10 mg PO DAILY RF: 0 Renal Vitamin 0.8 mg Tablet 1 tab PO DAILY RF: 0 Referrals Referrals: Adolph Aldridge MD [Primary Care Provider] - Discharge Problem: Acute renal failure Qualifiers: Acute renal failure type: unspecified Qualified Code(s): N17.9 - Acute kidney failure, unspecified Anemia Qualifiers: Anemia type: unspecified type Qualified Code(s): D64.9 - Anemia, unspecified
[2020-08-10 09:37] LABS: Hematocrit (blood only) 20.2 % (37-47); Hemoglobin 6.7 g/dL (12.0-16.0); Mean Corpuscular Hgb Conc 33.2 g/dL (32-36); Mean Corpuscular Volume 99.5 fL (80-100); Mean Platelet Volume 9.2 fL (7.4-10.4); Platelet Count 179 K/uL (130-400); RDW Coefficient of Variation 14.9 % (11.5-14.5); RDW Standard Deviation 53.6 fL (36.4-46.3); Red Blood Count 2.03 M/uL (4.2-5.4); White Blood Count 8.94 K/uL (4.8-10.8)
[2020-08-10 09:38] LABS: Partial Thromboplastin Ratio 0.9; Partial Thromboplastin Time 25.4 Seconds (21.0-31.0); Prothrombin Time 10.2 Seconds (9.0-12.0)
[2020-08-10 09:40] LABS: Base Excess VBG -8.4 mEq/L; Oxygen Saturation VBG 74.9 %; pH VBG 7.24 (7.36-7.41)
[2020-08-10 09:44] LABS: Basophils # (auto) 0.02 K/uL (0-0.2); Basophils % (auto) 0.2 %; Eosinophils % (auto) 1.1 %; Immature Granulocytes # (auto) 0.03 K/uL (0.00-0.02); Immature Granulocytes % (auto) 0.3 %; Lymphocytes % (auto) 8.9 %; Monocytes # (auto) 0.46 K/uL (0.11-0.59); Monocytes % (auto) 5.1 %; Neutrophils # (auto) 7.53 K/uL (1.4-6.5); Neutrophils % (auto) 84.4 %
[2020-08-10 10:03] LABS: Albumin Globulin Ratio 0.7 (0.9-2); Albumin Level 2.6 gm/dl (3.4-5.0); Bilirubin,Total 0.4 mg/dl (0.2-1); C Reactive Protein 5.69 mg/dl (0-0.29); Calcium 8.5 mg/dl (8.5-10.1); Creatinine Clr Calc Pharmacy 6.6 ml/min; Est GFR (African American) 3.2; Est GFR (Non-African American) 2.8; Globulin 3.9 gm/dl (2.5-4.0); Magnesium 2.7 mg/dl (1.8-2.4); Potassium 5.1 mmol/L (3.5-5.1); Total Protein 6.5 gm/dl (6.4-8.2); Troponin I 0.037 ng/ml (0-0.045)
--- NOTE | 2020-08-10 10:28 | Nephrology Consultation ---
Date of Consultation August 10, 2020 Assessment & Plan (1) ESRD (end stage renal disease) on dialysis: anuric pt w/ ESRD on HD MWF; last HD 08/05; volume depleted by exam/hx/studies; chemistries ok for now >HD today once we have access w/ minimal fluid removal d/t hypotension and no heparin 2.5 hrs today on large dialyzer >plan long tx tomorrow to get her back on track Present on Admission?: Yes (2) Acute hypotension: planned to get some IVF in ER; per primary service and ER teams >> ? cause ? infection; ? pain meds > monitor closely > give hgb; give ivf as needed Present on Admission?: Yes (3) Acute alteration in mental status: noted in ER; monitor; doubt uremia as causative factor since she's had creat in mid teens before w/o MS changes -per primary service -dialysis today short tx Present on Admission?: Yes (4) Anemia: presenting hgb 6.7; may need transfusion but if possible would give on HD. no obvious source of bleeding > was 05/27 on 08/05. -transfuse prn ideally on HD Present on Admission?: Yes (5) Problem with dialysis access: outpt dialysis team unable to cannulate despite repeated attempts Vascular aware and to see pt today - got tdc Needs dialysis today Present on Admission?: Yes History of Present Illness Reason for Consultation: vascular access malfunction, ESRD on HD Requesting Physician: Dr Villatoro Attending Physician: Dr Villatoro History of Present Illness 34 y/o F w/ ESRD on MWF HD who on 08/05 had AVF revision with accuseal graft interposition whom I'm asked to see for dialysis needs after she was sent to the ER this AM b/c dialysis could not access her AVG despite 5 sticks. Her last HD was 08/05 per report. 08/05 procedure was to address enlarging venous aneurysm causing pain. Notable in ER to have slightly diminished MS, slightly lower than expected BP -- ? if took some pain meds after procedure. Not to point where narcan indicated per ER team. Hgb also 6.7; K ok; creat 15. Late this afternoon she had dialysis catheter placed. vasc duplex shows patent AVG but probable hematoma Allergies Allergy/AdvReac Type Severity Reaction Status Date / Time cefaclor Allergy Intermediate Rash Verified 08/05/20 09:34 amoxicillin AdvReac Mild VOMITING Verified 08/05/20 09:34 clavulanic acid AdvReac Mild VOMITING Verified 08/05/20 09:34 latex AdvReac Unknown Unverified 08/10/20 11:05 Home Medications Medication Instructions Recorded Confirmed Type gabapentin [Neurontin] See Rx Instructions .ROUTE .COMPLEX 01/24/19 08/10/20 History Auryxia 210 mg PO UD 10/17/19 08/10/20 History trazodone 150 mg PO HS 10/17/19 08/10/20 History losartan 100 mg PO QAM 11/12/19 08/10/20 History carvedilol 3.125 mg PO BID 12/21/19 08/10/20 History cinacalcet [Sensipar] 60 mg PO PM 12/21/19 08/10/20 History hydroxyzine HCl 25 mg PO Q6 PRN 04/21/20 08/10/20 History calcium acetate(phosphat bind) 667 mg PO UD 06/22/20 08/10/20 History albuterol sulfate 2 puff INHALATION QID 08/01/20 08/10/20 History lorazepam 0.5 mg PO Q8 PRN 08/01/20 08/10/20 History oxycodone [Roxicodone] 5 mg PO Q8H PRN #3 tab 08/02/20 08/10/20 Rx sertraline 150 mg PO QAM 08/02/20 08/10/20 History oxycodone-acetaminophen [Percocet] 1 tab PO Q4H PRN #40 tab 08/05/20 08/10/20 Rx B complex-vitamin C-folic acid 1 tab PO DAILY 08/10/20 08/10/20 History [Renal Vitamin] amlodipine 10 mg PO DAILY 08/10/20 08/10/20 History Patient History Medical History Anemia Anxiety and depression Asthma "BEEN A WHILE" SINCE USING LAST RESCUE INHALER AVF (arteriovenous fistula) Bipolar disorder CKD (chronic kidney disease) stage V requiring chronic dialysis Dialysis patient SATURDAY/SAT/SATURDAY AT [facility] DM2 (diabetes mellitus, type 2) CONTROLLED WITH DIET AND EXERCISE Fistula LEFT ARM FSGS (focal segmental glomerulosclerosis) DX INITIALLY 2012 (CAUSING ESRD 2012) GERD (gastroesophageal reflux disease) HTN (hypertension) Migraine Peripheral neuropathy Prolonged QT interval Restless leg syndrome Surgical History H/O eye surgery LASER SURGERY LEFT H/O hernia repair ABDOMINAL WALL H/O knee surgery LEFT KNEE X 2 H/O tubal ligation H/O: X 2 History of cardiac cath 2017 NO STENTS History of cholecystectomy History of colonoscopy History of tooth extraction JUST ONE TOOTH Kidney transplant recipient 2013 AT [facility] Family History Grandmother Hx of CABG Mother Diabetes Father Crohn's disease Grandfather (Maternal) Diabetes Uncle Diabetes Social History Smoking Status: Current some day smoker Tobacco Type: Cigarettes Cigarettes Per Day: 1/2 PPD; Second Hand Exposure: No; Hx Alcohol Use: No Hx Substance Use: No Preferred Language: Persian Communication Ability: Effective Small Order Cutter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 Beliefs That Will Affect Care: None marital status: Current Living Situation: Other Current Living Situation Comment: with friend current occupational status: employed How many Children do You have: 2 Feels Safe at Home: Yes Assistive Devices: None Review of Systems Review of Systems: All systems reviewed & are unremarkable except as noted in HPI & below Constitutional: + fatigue and + weakness; no fever and no malaise Respiratory: no cough and no dyspnea Cardiovascular: no chest pain Gastrointestinal: no abdominal pain, no nausea and no vomiting Genitourinary: anuric at baseline Physical Exam Constitutional: well developed, well nourished, + obese and + altered mental status (slightly diminished/sleepy/struggles to keep eyes open); no acute distr ess Eyes: EOM intact bilaterally ENMT: Ears: no external ear abnormality Nose: no external nose abnormality Mouth: + dry oral mucous membranes facial swelling Neck: no nuchal rigidity Respiratory: normal respiratory effort Auscultation: + diminished lung sounds and + crackles (bibasilar; on 02NC) Cardiovascular: Rate/Rhythm: regular rate and regular rhythm Extremities: + edema (trace) and + AV fistula Gastrointestinal (Abdomen): Inspection/Auscultation: normal bowel sounds Percussion/Palpation: abdomen soft; abdomen nontender Musculoskeletal: Extremities: strength 5/5 throughout Skin: no rashes, warm and dry Neurologic: awake (but sluggish) sandy, fluent though limited speech, no tremor; psychomotor slowing Psychiatric: Orientation: oriented x 3 and cooperative Results & Data ([facility]) Vital Signs (Past 12 Hours) Vital Signs Temp Pulse Pulse Resp BP BP Pulse Ox 08/10/20 09:22 72 14 94/50 L 93 08/10/20 08:18 36.7 C 75 14 86/65 L 94 Laboratory Results 08/10/20 09:00 08/10/20 09:00 Diagnostic Findings VA duplex IMPRESSION: Interval AV fistula revision with placement of an AV graft which is patent. 15.2 x 2.7 x 6.1 cm elongated fluid collection along the anterior aspect of the graft favors a hematoma and may account for difficulty accessing the graft. cxr 1. No evidence of focal pulmonary consolidation 2. Subtle elevation of the interstitium. It is unclear whether this relates to technical factors given the patient's body habitus, poor inspiration, and AP technique, or whether this is secondary to mild pulmonary vascular congestion or a subtle interstitial inflammatory process. Clinical correlation advocated. (1) Problem with dialysis access Encounter type: sequela Qualified Code(s): T82.898S - Other specified complication of vascular prosthetic devices, implants and grafts, sequela (2) Anemia Anemia type: unspecified type Qualified Code(s): D64.9 - Anemia, unspecified
--- NOTE | 2020-08-10 11:00 | Ultrasound Report ---
US hemodialysis access CLINICAL HISTORY: not able to access COMPARISON STUDY: AV fistula ultrasound August 01, 2020. TECHNIQUE: Grayscale, color and duplex doppler sonography of the left upper extremity AV fistula was performed. FINDINGS: Interval revision is noted since prior exam of August 01, 2020 with placement of an AV gra ft. The graft is patent. Velocity ranges up to 348 cm/s at the level of the antecubital fossa. Evalua tion of the graft within the proximal upper arm is difficult given shadowing. Note is made of a compl ex fluid collection located along anterior aspect of the graft that measures 15.2 x 2.7 x 6.1 cm. No additional fluid collections are identified. IMPRESSION: Interval AV fistula revision with placement of an AV graft which is patent. 15.2 x 2.7 x 6.1 cm elongated fluid collection along the anterior aspect of the graft favors a hematoma and may ac count for difficulty accessing the graft. ACT 112: Negative or not required by law. Electronically signed by: Sebastian Mcclain M.D. 08/10/2020 10:58 AM
[2020-08-10] MEDS ORDERED: SODIUM CHLORIDE 0.9% 250 ML IV PRN (11:29)
--- NOTE | 2020-08-10 11:36 | XRay Report ---
XR chest 1V portable CLINICAL HISTORY: Atypical chest pain COMPARISON STUDY: 07/14/2020 FINDINGS: The heart appears enlarged. There is mild elevation of the interstitium. While this may be in part secondary technical factors given a suboptimal inspiration AP technique, mild pulmonary vascu lar congestion or a subtle interstitial inflammatory process cannot be excluded. There is no lobar co nsolidation. There are no pleural effusions.[ IMPRESSION: 1. No evidence of focal pulmonary consolidation 2. Subtle elevation of the interstitium. It is unclear whether this relates to technical factors give n the patient's body habitus, poor inspiration, and AP technique, or whether this is secondary to mil d pulmonary vascular congestion or a subtle interstitial inflammatory process. Clinical correlation a dvocated. ACT 112: Negative or not required by law. Electronically signed by: Win Foster M.D. 08/10/2020 11:34 AM
--- NOTE | 2020-08-10 12:30 | History & Physical Report ---
Date of Service August 10, 2020 Assessment & Plan (1) End-stage renal disease (ESRD): (2) Problem with dialysis access: This is a 34-year-old female who has significant PMH of ESRD on HD with hx of renal transplant followed by Dr. Nieves, HTN, depression with anxiety, chronic anemia, chronically elevated troponin, IBS who presents to [facility] ED secondary to unable to access fistula at HD. POD # 5 left AV fistula revision with interposition 7 mm accuseal graft, fistulogram and percutaneous transluminal angioplasty with stenting of left peripheral vein by Dr. Claudio HD unable to access fistula today and therefore sent to ED. US LUE 15.2 x 2.7 x 6.1 cm elongated fluid collection along the anterior aspect of the graft favors a hematoma and may account for difficulty accessing the graft. admit to med tele consult vascular surgery - pt to require HD today will defer to vascular surgery for access nephrology consulted and on board - appreciate Dr. Nieves recommendations daily weights, strict I and O, renal diet continue phoslo, auryxia, sensipar Holding narcotics for now given pt drowsiness - no actual alteration in mental status as she is A and O x 3 but drowsy and easily arousable APAP for pain (3) Symptomatic anemia: (4) Hematoma following procedure: pt with chronic anemia in setting of ESRD hgb today 6.7, 10.2 on 08/05 - US shows development of hematoma - no other overt source of bleeding Pt will need transfusion - per Dr. Nieves to receive 1 unit PRBC during HD transfuse 1 unit at time to prevent volume overload will not trend h/h at this time given pt need for transfusion and inability to transfuse until HD continue iron supplements, monitor hemodynamics closely (5) HTN (hypertension): BP on low side in setting of hypovolemia hold amlodipine, losartan and coreg until BP more stable (6) Prolonged QT interval: monitor qtc avoid qtc prolonging meds (7) Depression: continue zoloft and trazodone flat affect (8) DVT prophylaxis: SCD/TEDS, no chemical prophylaxis in setting of anemia/hematoma Disposition: admit to med tele Follow up: Dr. Aldridge upon discharge Pt was seen and examined in collaboration with Dr. Lutz, please see addendum History of Present Illness Chief Complaint: Referred by HD 09/27 to inability to access Primary Care Provider: Adolph Aldridge MD This is a 34-year-old female who has significant PMH of ESRD on HD with hx of renal transplant followed by Dr. Nieves, HTN, depression with anxiety, chronic anemia, chronically elevated troponin, IBS who presents to [facility] ED secondary to unable to access fistula at HD. Significance on 08/05 patient underwent left AV fistula revision with interposition 7 mm accuseal graft, fistulogram and percutaneous transluminal angioplasty with stenting of left peripheral vein on 08/05. Her last hemodialysis was on 08/05. She presented hemodialysis today but staff was unable to access fistula site. She has been complaining of significant pain to left upper extremity but the swelling has improved slightly. She has been using ice and heat. She is also taking oxycodone 5 mg every 6 hours, last dose at 5 AM. She complains of being dizzy and lightheaded with walking. She has no presyncopal but denies ed syncope. She further complains of a wet cough for the past 2 days. Denies any known COVID-19 exposures. She has chronic dyspnea on exertion and feels is unchanged. She denies any fever, chills, sweats, chest pain, palpitations, hemoptysis, nausea, vomiting, abdominal pain, melena, hematochezia. She further denies any diarrhea. She is an uric. Appetite is overall been decreased. In ED patient was very drowsy. ED provider concerned for possible misuse of narcotics. Again stated last dose at 5 AM. She was noted to be hypovlemic with hemoglobin hematocrit of 6.7 and 20.2, WBC 8.94, platelet 179, ESR 33, CRP 5.69, procalcitonin 0.54, mag 2.7, BUN 75, creatinine 15, gap 15, sodium 131 chloride 97, CO2 20 Chest x-ray negative for acute abnormality. EKG reveals T wave inversions V5, 6, leads I and 2. She was mildly hypotensive and did receive 500 of IV fluid. ED provider discussed with nephrology who also discussed with vascular surgery as patient will need hemodialysis today. Possible temporary port may need to be placed. ED discussion was had for transfusion and consent was obtained. US revealed 15.2 x 2.7 x 6.1 cm elongated fluid collection along the anterior aspect of the graft favors a hematoma. Allergies Allergy/AdvReac Type Severity Reaction Status Date / Time cefaclor Allergy Intermediate Rash Verified 08/05/20 09:34 amoxicillin AdvReac Mild VOMITING Verified 08/05/20 09:34 clavulanic acid AdvReac Mild VOMITING Verified 08/05/20 09:34 latex AdvReac Unknown Unverified 08/10/20 11:05 Home Medications Medication Instructions Recorded Confirmed Type gabapentin [Neurontin] See Rx Instructions .ROUTE .COMPLEX 01/24/19 08/10/20 History Auryxia 210 mg PO UD 10/17/19 08/10/20 History trazodone 150 mg PO HS 10/17/19 08/10/20 History losartan 100 mg PO QAM 11/12/19 08/10/20 History carvedilol 3.125 mg PO BID 12/21/19 08/10/20 History cinacalcet [Sensipar] 60 mg PO PM 12/21/19 08/10/20 History hydroxyzine HCl 25 mg PO Q6 PRN 04/21/20 08/10/20 History calcium acetate(phosphat bind) 667 mg PO UD 06/22/20 08/10/20 History albuterol sulfate 2 puff INHALATION QID 08/01/20 08/10/20 History lorazepam 0.5 mg PO Q8 PRN 08/01/20 08/10/20 History oxycodone [Roxicodone] 5 mg PO Q8H PRN #3 tab 08/02/20 08/10/20 Rx sertraline 150 mg PO QAM 08/02/20 08/10/20 History oxycodone-acetaminophen [Percocet] 1 tab PO Q4H PRN #40 tab 08/05/20 08/10/20 Rx B complex-vitamin C-folic acid 1 tab PO DAILY 08/10/20 08/10/20 History [Renal Vitamin] amlodipine 10 mg PO DAILY 08/10/20 08/10/20 History Past Med/Surg History Medical History Anemia Anxiety and depression Asthma "BEEN A WHILE" SINCE USING LAST RESCUE INHALER AVF (arteriovenous fistula) Bipolar disorder CKD (chronic kidney disease) stage V requiring chronic dialysis Dialysis patient SATURDAY/SAT/SATURDAY AT [facility] DM2 (diabetes mellitus, type 2) CONTROLLED WITH DIET AND EXERCISE Fistula LEFT ARM FSGS (focal segmental glomerulosclerosis) DX INITIALLY 2013 (CAUSING ESRD 2012) GERD (gastroesophageal reflux disease) HTN (hypertension) Migraine Peripheral neuropathy Prolonged QT interval Restless leg syndrome Surgical History H/O eye surgery LASER SURGERY LEFT H/O hernia repair ABDOMINAL WALL H/O knee surgery LEFT KNEE X 2 H/O tubal ligation H/O: X 2 History of cardiac cath 2016 NO STENTS History of cholecystectomy History of colonoscopy History of tooth extraction JUST ONE TOOTH Kidney transplant recipient 2013 AT [facility] Family History Grandmother Hx of CABG Mother Diabetes Father Crohn's disease Grandfather (Maternal) Diabetes Uncle Diabetes Social History Smoking Status: Current every day smoker Tobacco Type: Cigarettes Cigarettes Per Day: 1/2 PPD; Second Hand Exposure: No; Hx Alcohol Use: No Hx Substance Use: No Preferred Language: Citizen Of [place] Communication Ability: Effective Assistant Engineer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 Beliefs That Will Affect Care: None marital status: Current Living Situation: Significant Other current occupational status: employed How many Children do You have: 2 Feels Safe at Home: Yes Assistive Devices: Glasses Review of Systems Review of Systems: All systems reviewed & are unremarkable except as noted in HPI & below Physical Exam Physical Exam: Constitutional: Pale, chronically Ill, F, young, vitals as above, drowsy but arouses to verbal stimulation, answers questions appropriately, appears dry Head: Normocephalic, Atraumatic Eyes: PERRL, conjunctivae normal, anicteric sclerae ENMT: external ear and nose normal, oropharynx normal dry membranes Neck: trachea midline, no thyromegaly normal visual inspection Respiratory: normal respiratory effort, lungs clear to auscultation, no wheeze, rales, rhonchi. Normal insp/exp effort, no accessory muscle use Cardio: RRR, no murmur, no edema Vessels: no JVD or carotid bruit Vascular: LUE AV Fistula incision, tatum, incision CDI, surrounding edema, tender to palpation, no erythema Chest: normal inspection of chest Abdomen: normal bowel sounds, soft, nontender, no hepatosplenomegaly Musculoskeletal: no cyanosis or clubbing, extremities motor strength 5/5 Skin: no rashes, warm and dry mild turgor Neurologic: PERRL, EOMI, accommodation nl, no face palsy, no dysarthria CN's II-XI intact bilaterally and moves all extremities Psychiatric: A+Ox3, euthymic affect Lymphatic: no cervical or axillary lymphadenopathy : deferred Results & Data Results & Data ([facility]) Vital Signs (Past 12 Hours) Vital Signs Temp Pulse Pulse Resp BP BP Pulse Ox 08/10/20 12:16 97 08/10/20 11:50 73 14 96 08/10/20 11:40 70 14 96 08/10/20 11:31 68 16 95 08/10/20 11:30 70 14 99/58 L 94 08/10/20 11:20 72 12 95 08/10/20 11:14 73 14 111/54 L 93 08/10/20 11:10 69 16 94 08/10/20 11:00 72 9 L 97 08/10/20 10:50 68 15 99 08/10/20 10:40 72 7 L 100 08/10/20 10:37 72 7 L 103/55 L 100 08/10/20 10:31 71 7 L 100 08/10/20 10:30 71 7 L 70/48 L 100 08/10/20 10:25 71 6 L 74/55 L 99 08/10/20 10:20 68 10 L 100 08/10/20 10:12 70 13 08/10/20 09:31 71 10 L 92 08/10/20 09:30 73 8 L 84/71 L 91 08/10/20 09:22 72 14 94/50 L 93 08/10/20 09:20 71 16 90 08/10/20 09:15 73 16 94/50 L 90 08/10/20 09:10 72 14 91 08/10/20 09:00 73 16 89 L 08/10/20 08:50 71 16 93 08/10/20 08:40 76 10 L 95 08/10/20 08:38 82 21 08/10/20 08:37 83 22 92/54 L 08/10/20 08:20 93 08/10/20 08:18 36.7 C 75 14 86/65 L 95 Laboratory Results Short CBC 08/10/20 08/10/20 Range/Units 09:00 09:00 WBC 8.94 (4.8-10.8) K/uL Hgb 6.7 L* (12.0-16.0) g/dL Hct 20.2 L* (37-47) % Plt Count 179 (130-400) K/uL Troponin I 0.037 (0-0.045) ng/ml BMP 08/10/20 09:00 Sodium 131 L Potassium 5.1 Chloride 97 L Carbon Dioxide 20 L BUN 75 H Creatinine 15.00 H* Glucose 109 H Calcium 8.5 Cardiac Enzymes 08/10/20 Range/Units 09:00 Troponin I 0.037 (0-0.045) ng/ml Liver Function 08/10/20 Range/Units 09:00 Total Bilirubin 0.4 (0.2-1) mg/dl AST 12 L (15-37) U/L ALT 38 (12-78) U/L Alkaline Phosphatase 123 H (45-117) U/L Albumin 2.6 L (3.4-5.0) gm/dl Diagnostic Findings HD Access Duplex US: IMPRESSION: Interval AV fistula revision with placement of an AV graft which is patent. 15.2 x 2.7 x 6.1 cm elongated fluid collection along the anterior aspect of the graft favors a hematoma and may account for difficulty accessing the graft. CXR: IMPRESSION: 1. No evidence of focal pulmonary consolidation 2. Subtle elevation of the interstitium. It is unclear whether this relates to technical factors given the patient's body habitus, poor inspiration, and AP technique, or whether this is secondary to mild pulmonary vascular congestion or a subtle interstitial inflammatory process. Clinical correlation advocated. Medications Administered Discontinued Medications Sodium Chloride (Nss 1000ml) 500 mls @ 999 mls/hr IV .Q31M ONE Stop: 08/10/20 09:00 Last Infusion: 08/10/20 09:49 Dose: 0 mls/hr Documented by: [id number] Admin: 08/10/20 09:13 Dose: 999 mls/hr Documented by: [id number] ECG Rate (beats per minute): 79 Rhythm: normal sinus Findings: + T-wave inversion (V5, V6, I and II t wave inversion) and + prolonged QT (qtc 477ms) Change: the following changes noted Additional Comments: T wave inversion as above Code Status & VTE Plan Code Status Full Code VTE Prophylaxis Plan VTE Prophylaxis will be ordered: Yes Supervising Physician Co-Signing Physician Notes Pt was seen and examined. Agreed with Maida BOND exam, assessment and plan. 34-year-old female with PMH of ESRD on HD with hx of renal transplant, HTN, depression, anxiety anemia was sent to [facility] ED due swelling around the HD fistula. Pt underwent left AV fistula revision with interposition 7 mm accuseal graft, fistulogram and percutaneous transluminal angioplasty with stenting of left peripheral vein on 08/[address] Claudio. She said that her last HD was last Saturday. She went to get HD done today but staff at the dialysis center was unable to access it due to significant swelling around the AV fistula area. She said that the area is tender. She denies any fever, chills, sweats, chest pain, palpitations, hemoptysis, nausea, vomiting, abdominal pain, melena, hematochezia. Exam showed swelling around the AV fistula, mild erythema around the axilla area, staple and incision intact with no drainage, mild tenderness. U/S duplex of HD showed Interval AV fistula revision with placement of an AV graft which is patent. 15.2 x 2.7 x 6.1 cm elongated fluid collection along the anterior aspect of the graft favors a hematoma and may account for difficulty accessing the graft. Hgb on admission 6.7,pH from the VBG 7.2 and procalcitonin mildly elevated. will transfuse 1 unit prbc during HD. Vascular surgery on board for HD access, plan to place a permcath today. Will HD later once we have access. case discussed with nephrology. Due to the swelling and tenderness around the AV fistula and elevated procalcitonin, Will consider to start on doxycycline if spike any fever. Will follow blood cx and repeat procalcitonin and CBC in am. Continue monitor closely. MD Nelda (1) Problem with dialysis access Encounter type: sequela Qualified Code(s): T82.898S - Other specified complication of vascular prosthetic devices, implants and grafts, sequela (2) Depression Depression Type: unspecified Qualified Code(s): F32.9 - Major depressive disorder, single episode, unspecified (3) HTN (hypertension) Hypertension type: unspecified Qualified Code(s): I10 - Essential (primary) hypertension
--- NOTE | 2020-08-10 13:47 | Consultation ---
Date of Consultation August 10, 2020 Assessment & Plan (1) ESRD (end stage renal disease) on dialysis: Do to the swelling in the arm, would recommend permcath insertion to rest the arm til the swelling decreases. I have discussed the risks options and benefits of the procedure with the timothy owens. The patient understands the risks options and benefits and agrees to the procedure. History of Present Illness Reason for Consultation: Lack of dialysis access History of Present Illness Patient is a 34 yo on dialysis who had revision of her fistula last week. She has arm swelling and it could not be accessed. Permcath is recommended. Allergies Allergy/AdvReac Type Severity Reaction Status Date / Time cefaclor Allergy Intermediate Rash Verified 08/05/20 09:34 amoxicillin AdvReac Mild VOMITING Verified 08/05/20 09:34 clavulanic acid AdvReac Mild VOMITING Verified 08/05/20 09:34 latex AdvReac Unknown Unverified 08/10/20 11:05 Home Medications Medication Instructions Recorded Confirmed Type gabapentin [Neurontin] See Rx Instructions .ROUTE .COMPLEX 01/24/19 08/10/20 History Auryxia 210 mg PO UD 10/17/19 08/10/20 History trazodone 150 mg PO HS 10/17/19 08/10/20 History losartan 100 mg PO QAM 11/12/19 08/10/20 History carvedilol 3.125 mg PO BID 12/21/19 08/10/20 History cinacalcet [Sensipar] 60 mg PO PM 12/21/19 08/10/20 History hydroxyzine HCl 25 mg PO Q6 PRN 04/21/20 08/10/20 History calcium acetate(phosphat bind) 667 mg PO UD 06/22/20 08/10/20 History albuterol sulfate 2 puff INHALATION QID 08/01/20 08/10/20 History lorazepam 0.5 mg PO Q8 PRN 08/01/20 08/10/20 History oxycodone [Roxicodone] 5 mg PO Q8H PRN #3 tab 08/02/20 08/10/20 Rx sertraline 150 mg PO QAM 08/02/20 08/10/20 History oxycodone-acetaminophen [Percocet] 1 tab PO Q4H PRN #40 tab 08/05/20 08/10/20 Rx B complex-vitamin C-folic acid 1 tab PO DAILY 08/10/20 08/10/20 History [Renal Vitamin] amlodipine 10 mg PO DAILY 08/10/20 08/10/20 History Patient History Medical History Anemia Anxiety and depression Asthma "BEEN A WHILE" SINCE USING LAST RESCUE INHALER AVF (arteriovenous fistula) Bipolar disorder CKD (chronic kidney disease) stage V requiring chronic dialysis Dialysis patient SATURDAY/SAT/SATURDAY AT [facility] DM2 (diabetes mellitus, type 2) CONTROLLED WITH DIET AND EXERCISE Fistula LEFT ARM FSGS (focal segmental glomerulosclerosis) DX INITIALLY 2012 (CAUSING ESRD 2012) GERD (gastroesophageal reflux disease) HTN (hypertension) Migraine Peripheral neuropathy Prolonged QT interval Restless leg syndrome Surgical History H/O eye surgery LASER SURGERY LEFT H/O hernia repair ABDOMINAL WALL H/O knee surgery LEFT KNEE X 2 H/O tubal ligation H/O: X 2 History of cardiac cath 2016 NO STENTS History of cholecystectomy History of colonoscopy History of tooth extraction JUST ONE TOOTH Kidney transplant recipient 2013 AT [facility] Family History Grandmother Hx of CABG Mother Diabetes Father Crohn's disease Grandfather (Maternal) Diabetes Uncle Diabetes Social History Smoking Status: Current every day smoker Tobacco Type: Cigarettes Cigarettes Per Day: 1/2 PPD; Second Hand Exposure: No; Hx Alcohol Use: No Hx Substance Use: No Preferred Language: Persian Communication Ability: Effective Visitor Service Assistant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 Beliefs That Will Affect Care: None marital status: Current Living Situation: Significant Other current occupational status: employed How many Children do You have: 2 Feels Safe at Home: Yes Assistive Devices: Glasses Review of Systems Review of Systems: All systems reviewed & are unremarkable except as noted in HPI & below Physical Exam Constitutional: well developed and well nourished Respiratory: normal respiratory effort; no respiratory distress Cardiovascular: Rate/Rhythm: regular rate and regular rhythm Extremities: + AV fistula Gastrointestinal (Abdomen): Inspection/Auscultation: abdomen normal to inspection Percussion/Palpation: abdomen soft Psychiatric: Orientation: alert and oriented x 3 Results & Data ([facility]) Vital Signs (Past 12 Hours) Vital Signs Temp Pulse Pulse Resp BP BP Pulse Ox 08/10/20 13:01 72 8 L 08/10/20 13:00 70 12 106/53 L 08/10/20 12:50 70 20 100 08/10/20 12:40 73 18 98 08/10/20 12:30 72 19 102/47 L 100 08/10/20 12:20 76 22 100 08/10/20 12:16 97 08/10/20 12:10 73 18 08/10/20 12:01 70 14 97 08/10/20 12:00 71 10 L 119/56 L 97 08/10/20 11:50 73 14 96 08/10/20 11:40 70 14 96 08/10/20 11:31 68 16 95 08/10/20 11:30 70 14 99/58 L 94 08/10/20 11:20 72 12 95 08/10/20 11:14 73 14 111/54 L 93 08/10/20 11:10 69 16 94 08/10/20 11:00 72 9 L 97 08/10/20 10:50 68 15 99 08/10/20 10:40 72 7 L 100 08/10/20 10:37 72 7 L 103/55 L 100 08/10/20 10:31 71 7 L 100 08/10/20 10:30 71 7 L 70/48 L 100 08/10/20 10:25 71 6 L 74/55 L 99 08/10/20 10:20 68 10 L 100 08/10/20 10:12 70 13 08/10/20 09:31 71 10 L 92 08/10/20 09:30 73 8 L 84/71 L 91 08/10/20 09:22 72 14 94/50 L 93 08/10/20 09:20 71 16 90 08/10/20 09:15 73 16 94/50 L 90 08/10/20 09:10 72 14 91 08/10/20 09:00 73 16 89 L 08/10/20 08:50 71 16 93 08/10/20 08:40 76 10 L 95 08/10/20 08:38 82 21 08/10/20 08:37 83 22 92/54 L 08/10/20 08:20 93 08/10/20 08:18 36.7 C 75 14 86/65 L 95
[2020-08-10] MEDS ORDERED: HEPARIN SOD (PORCINE) 5,000 UNITS/ML VIAL ONE (13:55)
[2020-08-10] MEDS ORDERED: LIDOCAINE HCL 1% 20 ML VIAL ONE (13:55)
[2020-08-10] MEDS ORDERED: PROPOFOL IV EMULSION 10 MG/ML 20 ML VIAL IV ONE (14:20)
[2020-08-10] MEDS ORDERED: LIDOCAINE HCL 2% 2 ML VIAL/AMP(20MG/ML) INFIL ONE (14:20)
[2020-08-10] MEDS ORDERED: MIDAZOLAM HCL 1 MG/ML 2ML VIAL ONE (14:20)
[2020-08-10] MEDS ORDERED: fentaNYL citrate 100 MCG/2 ML VIAL ONE (14:21)
[2020-08-10] MEDS ORDERED: CLINDAMYCIN 600 MG/54 ML BAG IV SCH (15:45)
[2020-08-10] MEDS ORDERED: CLINDAMYCIN PHOS 300 MG/2 ML VIAL ONE (15:48)
[2020-08-10] MEDS ORDERED: LIDOCAINE HCL 1% 20 ML VIAL INJ ONE (16:18)
--- NOTE | 2020-08-10 16:39 | Operative Report ---
Post Operative Report Pre & Post Diagnosis Operation Date: 08/10/20 14:35 Pre-Op Diagnosis: Malfunctioning Fistula Post-Op Diagnosis: Malfunctioning Fistula I identified the patient and participated in the time-out.: Yes Procedure Operation Date: 08/10/20 14:35 Actual Procedures p Insertion of Perm Catheter, Right Internal Jugular Approach, Ultrasound Localization of Left Internal Jugular Vein, Fluoroscopy for Positioning. (Right) - Michael Claudio MD Surgeon Michael Claudio MD Property Assessment Monitor none Estimated Blood Loss 5 Findings Consistent with Post-Op Diagnosis Specimens none Anesthesia Type MAC Complications none Disposition Accompanied Patient To Recovery: No Disposition: Recovery Room Indications This is a 34-year-old female who underwent revision of her left arm access. She developed swelling in the arm which they cannot now access for dialysis. PermCath was recommended. This will be done to rest the arm. I have discussed the risks options and benefits of the procedure with the patient. The patient understands the risks options and benefits and agrees to the procedure. Description of Procedure Patient was taken to the angio suite and placed in the supine position. The right side of the neck and chest wall were prepped and draped in a sterile manner. The patient was identified and a timeout performed. Local anesthesia was then administered to the appropriate areas of the neck and chest wall. Ultrasound was then used to locate the right internal jugular vein. The vein compressed easily but was very small. The vein was then punctured under direct ultrasound imaging. An attempt was made to pass a guidewire centrally. It appeared that the proximal internal jugular vein at the junction with the subclavian was occluded. We then decided to use the left side. The left-sided neck was then prepped and the patient redraped. Local anesthesia was then administered to the appropriate areas of the neck and chest wall. Ultrasound was then used to locate the left internal jugular vein. The vein compressed easily, had no filing defects, and was patent. The vein was then punctured under direct ultrasound imaging. A guidewire was then passed centrally under fluoroscopic imaging. A stab wound was then made in the anterior chest wall and a 19 cm permcath was passed from the stab wound on the chest wall to the pu ncture site on the neck. The puncture site was then dilated till the 14Fr peel away sheath was inserted. The permcath was then inserted through the sheath to a central position in the distal superior vena cava. The peel away sheath was then removed. The catheter was then sutured in place using nylon sutures. The puncture was then closed using a 4-0 Vicryl subcuticular suture. Dermabond was used for a dressing on the puncture site. Both ports aspirated and flushed easily and were then packed with heparin. A sterile dressing was applied to the catheter. The patient left the operation room in satisfactory condition and tolerated the procedure well. All needle and sponge counts were correct at the end of the procedure. I attest to the content of the Intraoperative Record and any orders documented therein. Any exceptions are noted below.
[2020-08-10] MEDS ORDERED: SODIUM CHLORIDE 0.9% 1000ML 1,000 ML IV PRN (17:25)
[2020-08-10] MEDS ORDERED: LORazepam 0.5 MG TAB PO PRN (17:25)
[2020-08-10] MEDS ORDERED: ONDANSETRON INJ 2 MG/ML 2 ML VIAL IV PRN (17:25)
[2020-08-10] MEDS ORDERED: ACETAMINOPHEN 325 MG TAB PO PRN (17:25)
[2020-08-10] MEDS ORDERED: POLYETHYLENE (MIRALAX) 17 GM PACK PO PRN (17:25)
[2020-08-10] MEDS ORDERED: EPOETIN ALFA 20,000 UNITS/ML VIAL IV ONE (17:25)
--- NOTE | 2020-08-10 17:40 | Anesthesiology Progress Note ---
Date of Service August 10, 2020 Anesthesia Post Procedure Vital Signs Vital Signs: Temp Pulse Pulse Pulse Resp BP BP 08/10/20 17:30 36.9 C 70 18 94/55 L 08/10/20 17:08 36.4 C L 69 14 103/56 L 08/10/20 16:55 36.4 C L 79 14 129/67 08/10/20 16:45 73 12 104/49 L 08/10/20 16:35 36.2 C L 75 12 115/66 08/10/20 15:08 36.7 C 69 20 08/10/20 14:22 68 12 101/61 08/10/20 14:00 71 12 92/48 L 08/10/20 13:01 72 8 L 08/10/20 13:00 70 12 106/53 L 08/10/20 12:50 70 20 08/10/20 12:40 73 18 08/10/20 12:30 72 19 102/47 L 08/10/20 12:20 76 22 08/10/20 12:16 08/10/20 12:10 73 18 08/10/20 12:01 70 14 08/10/20 12:00 71 10 L 119/56 L 08/10/20 11:50 73 14 08/10/20 11:40 70 14 08/10/20 11:31 68 16 08/10/20 11:30 70 14 99/58 L 08/10/20 11:20 72 12 08/10/20 11:14 73 14 111/54 L 08/10/20 11:10 69 16 08/10/20 11:00 72 9 L 08/10/20 10:50 68 15 08/10/20 10:40 72 7 L 08/10/20 10:37 72 7 L 103/55 L 08/10/20 10:31 71 7 L 08/10/20 10:30 71 7 L 70/48 L 08/10/20 10:25 71 6 L 74/55 L 08/10/20 10:20 68 10 L 08/10/20 10:12 70 13 08/10/20 09:31 71 10 L 08/10/20 09:30 73 8 L 84/71 L 08/10/20 09:22 72 14 94/50 L 08/10/20 09:20 71 16 08/10/20 09:15 73 16 94/50 L 08/10/20 09:10 72 14 08/10/20 09:00 73 16 08/10/20 08:50 71 16 08/10/20 08:40 76 10 L 08/10/20 08:38 82 21 08/10/20 08:37 83 22 92/54 L 08/10/20 08:20 08/10/20 08:18 36.7 C 75 14 86/65 L Pulse Ox 08/10/20 17:30 93 08/10/20 17:08 94 08/10/20 16:55 94 08/10/20 16:45 100 08/10/20 16:35 100 08/10/20 15:08 92 08/10/20 14:22 99 08/10/20 14:00 99 08/10/20 13:01 08/10/20 13:00 08/10/20 12:50 100 08/10/20 12:40 98 08/10/20 12:30 100 08/10/20 12:20 100 08/10/20 12:16 97 08/10/20 12:10 08/10/20 12:01 97 08/10/20 12:00 97 08/10/20 11:50 96 08/10/20 11:40 96 08/10/20 11:31 95 08/10/20 11:30 94 08/10/20 11:20 95 08/10/20 11:14 93 08/10/20 11:10 94 08/10/20 11:00 97 08/10/20 10:50 99 08/10/20 10:40 100 08/10/20 10:37 100 08/10/20 10:31 100 08/10/20 10:30 100 08/10/20 10:25 99 08/10/20 10:20 100 08/10/20 10:12 08/10/20 09:31 92 08/10/20 09:30 91 08/10/20 09:22 93 08/10/20 09:20 90 08/10/20 09:15 90 08/10/20 09:10 91 08/10/20 09:00 89 L 08/10/20 08:50 93 08/10/20 08:40 95 08/10/20 08:38 08/10/20 08:37 08/10/20 08:20 93 08/10/20 08:18 95 Transfer of Care Handoff Completed per policy Notes Mental Status: alert / awake / arousable and participated in evaluation Patient Amnestic to Procedure: Yes Nausea / Vomiting: adequately controlled Pain: adequately controlled Airway Patency, RR, SpO2: stable & adequate BP & HR: stable & adequate Hydration State: stable & adequate Anesthetic Complications: no major complications apparent
[2020-08-10 17:57] LABS: Iron 98 mcg/dl (35-150); Transferrin 196 mg/dl (200-360); Transferrin Percent Saturation 36 % (15-50)
[2020-08-10] MEDS: ALBUTEROL HFA 8 GM INHALER INH SCH ×3 (19:49→21:56)
[2020-08-10] MEDS ORDERED: carvediloL 3.125 MG TAB PO SCH (21:00)
[2020-08-10] MEDS ORDERED: GABAPENTIN 400 MG CAP PO SCH (21:00)
[2020-08-10] MEDS: GABAPENTIN 400 MG CAP PO SCH (21:34)
[2020-08-10] MEDS: DOXYCYCLINE HYCLATE 100 MG CAP PO SCH (21:34)
[2020-08-10] MEDS: carvediloL 3.125 MG TAB PO SCH (21:34)
[2020-08-10] MEDS: traZODone HCL 50 MG TAB PO SCH (21:35)
[2020-08-10] MEDS ORDERED: traMADol HCL 50 MG TABLET PO PRN (21:35)
[2020-08-10] MEDS: CALCIUM ACETATE 667 MG CAP/TAB PO SCH (21:36)
[2020-08-10] MEDS: CINACALCET: ORDER AWAITING ACTION SCH (23:30)
[2020-08-11] MEDS ORDERED: oxyCODONE HCL IR 5 MG TAB (IMMEDIATE RELEASE) PO PRN (04:01)
[2020-08-11] MEDS ORDERED: HYDROmorphone INJ 0.5 MG/0.5 ML SYR IV PRN (04:03)
--- NOTE | 2020-08-11 06:27 | Electrocardiogram Report ---
Test Reason : Blood Pressure : / mmHG Vent. Rate : 079 BPM Atrial Rate : 079 BPM P-R Int : 148 ms QRS Dur : 106 ms QT Int : 416 ms P-R-T Axes : 007 013 174 degrees QTc Int : 477 ms Normal sinus rhythm Poor R wave progression, consider anterior IN vs. lead placement vs. LVH T wave abnormality, consider inferolateral ischemia Abnormal ECG When compared with ECG of 14-JUL-2020 19:26, T wave inversion more evident in Inferolateral leads Confirmed by Johny Rodriguez ([id number]) on 08/11/2020 6:26:33 AM Referred By: REFERRED SELF Confirmed By:Johny Rodriguez
[2020-08-11] MEDS: ALBUTEROL HFA 8 GM INHALER INH SCH ×4 (07:05→19:06)
[2020-08-11 08:32] LABS: Basophils # (auto) 0.01 K/uL (0-0.2); Basophils % (auto) 0.2 %; Eosinophils # (auto) 0.07 K/uL (0-0.5); Eosinophils % (auto) 1.1 %; Hematocrit (blood only) 27.1 % (37-47); Hemoglobin 8.8 g/dL (12.0-16.0); Immature Granulocytes # (auto) 0.02 K/uL (0.00-0.02); Immature Granulocytes % (auto) 0.3 %; Lymphocytes # (auto) 0.81 K/uL (1.2-3.4); Lymphocytes % (auto) 12.2 %; Mean Corpuscular Hemoglobin 30.8 pg (25-34); Mean Corpuscular Hgb Conc 32.5 g/dL (32-36); Mean Corpuscular Volume 94.8 fL (80-100); Mean Platelet Volume 9.4 fL (7.4-10.4); Monocytes # (auto) 0.38 K/uL (0.11-0.59); Monocytes % (auto) 5.7 %; Neutrophils # (auto) 5.33 K/uL (1.4-6.5); Neutrophils % (auto) 80.5 %; Nucleated RBC # (auto) 0.03 K/uL (0-0); Nucleated RBC % (auto) 0.4 %; Platelet Count 122 K/uL (130-400); RDW Coefficient of Variation 17.6 % (11.5-14.5); RDW Standard Deviation 60.5 fL (36.4-46.3); Red Blood Count 2.86 M/uL (4.2-5.4); White Blood Count 6.62 K/uL (4.8-10.8)
[2020-08-11] MEDS ORDERED: SODIUM CHLORIDE 0.9% 1000ML 1,000 ML IV PRN (08:37)
[2020-08-11] MEDS ORDERED: EPOETIN ALFA 20,000 UNITS/ML VIAL IV ONE (08:38)
[2020-08-11] MEDS: SERTRALINE HCL 50 MG TABLET PO SCH (08:45)
[2020-08-11] MEDS: carvediloL 3.125 MG TAB PO SCH ×2 (08:45→20:39)
[2020-08-11] MEDS: GABAPENTIN 400 MG CAP PO SCH ×3 (08:45→16:30)
[2020-08-11] MEDS: CINACALCET: ORDER AWAITING ACTION SCH ×3 (08:45→23:38)
[2020-08-11] MEDS: CALCIUM ACETATE 667 MG CAP/TAB PO SCH ×3 (08:46→16:30)
[2020-08-11] MEDS: NEPHROCAPS PO SCH (08:46)
[2020-08-11] MEDS: DOXYCYCLINE HYCLATE 100 MG CAP PO SCH ×2 (08:46→20:39)
[2020-08-11 09:26] LABS: Albumin Globulin Ratio 0.7 (0.9-2); Albumin Level 2.5 gm/dl (3.4-5.0); BUN Creatinine Ratio 4.2 (10-20); Bilirubin,Total 0.4 mg/dl (0.2-1); Calcium 8.3 mg/dl (8.5-10.1); Creatinine Clr Calc Pharmacy 10.2 ml/min; Est GFR (African American) 5.5; Est GFR (Non-African American) 4.7; Globulin 3.7 gm/dl (2.5-4.0); Magnesium 2.3 mg/dl (1.8-2.4); Phosphorus 7.4 mg/dl (2.5-4.9); Potassium 4.9 mmol/L (3.5-5.1); Total Protein 6.2 gm/dl (6.4-8.2)
--- NOTE | 2020-08-11 10:36 | CT Scan Report ---
CT chest wo con CLINICAL HISTORY: Shortness of breath. Possible pneumonia COMPARISON STUDY: CT scan dated 05/23/2019, chest x-ray dated 08/10/2020 CT DOSE: 1105.71 mGy.cm TECHNIQUE: CT of the thorax was performed from the thoracic inlet to the lung bases. Images are revi ewed in the axial, sagittal, and coronal planes. IV contrast was not administered for this examinatio n. A dose lowering technique was utilized adhering to the principles of ALARA. FINDINGS: Thyroid: Imaged portions of the thyroid gland are normal in appearance. Thoracic aorta: The thoracic aorta is normal in course and caliber, noting standard 3 vessel arch linda glenn. Heart: There are coronary artery calcifications. The heart is mildly enlarged. There is no pericardia l effusion. There is a left jugular central venous catheter. The tip is positioned within the superio r vena cava Lungs and pleural spaces: There are no pleural effusions. There are subtle bilateral groundglass and interstitial opacities. This could represent atelectasis, areas of minimal focal edema, or infectious /inflammatory process,. Correlation with Covid 19 testing is recommended. There is no lobar consolida tion. Mediastinum: Mediastinal lymph nodes are the upper limits of normal in size. Darling: There is no evidence of pathologic hilar adenopathy given the limitations of a noncontrast stud y. Axilla: There is no evidence of pathologic axillary lymphadenopathy. Upper abdomen: Partially visualized upper abdominal viscera is within normal limits. Skeletal structures: There are no lytic or blastic osseous lesions. IMPRESSION: 1. Cardiomegaly and coronary artery calcifications 2. Subtle scattered groundglass and interstitial pulmonary opacities. This could represent atelectasi s, areas of minimal focal edema, or an infectious/inflammatory process. 3. No evidence of lobar consolidation. ACT 112: Negative or not required by law. Electronically signed by: Win Foster M.D. 08/11/2020 10:35 AM
[2020-08-11 13:57] LABS: Influenza A virus by PCR Negative (Neg); Influenza B virus by PCR Negative (Neg); RSV by PCR Negative (Neg); SARS CoV2 RNA(COVID-19) InHosp NEGATIVE (Negative)
--- NOTE | 2020-08-11 14:38 | Dialysis Progress Note ---
Date of Service August 11, 2020 Assessment & Plan (1) ESRD (end stage renal disease) on dialysis: anuric pt w/ ESRD on HD MWF; last HD 08/05 before admission; had 2.5 hr HD yesterday on large dialyzer >HD today once 5 hrs on large dialyzer >no hpearon on HD >next hd for tomorrow as IP or OP depending on clinical status (2) Acute hypotension: was low yesterday and still this am >> ? cause ? infection; ? pain meds > BP improved on HD and we are removing fluid today (3) Acute alteration in mental status: noted in ER; appears resolved this am (4) Anemia: presenting hgb 6.7;had 2 units pRBC and improved today to 8.8 (5) Problem with dialysis access: outpt dialysis team unable to cannulate despite repeated attempts Vascular aware and to see pt today - got tdc defer to vascular to evaluate arm - may need to call them for recs; recommend tylenol, ice, arm elevation; past this per vascular; will also need/ likely already has op f/u to eval AVG Admission and Anticipated Discharge Date Admission Date: August 10, 2020 Subjective seen on hd at about 1230; no sob; c/o ongoing cough x a few wks - primary aware; no n/v; c/o marked pain, swelling, lower ROM L arm and shoulder; tolerating po Review of Systems Review of Systems: All systems reviewed & are unremarkable except as noted in HPI & below Physical Exam Constitutional: well developed, well nourished and + obese; no acute distress and no altered mental status Eyes: EOM intact bilaterally ENMT: Ears: no external ear abnormality Nose: no external nose abnormality Mouth: + dry oral mucous membranes Neck: no nuchal rigidity Respiratory: normal respiratory effort Auscultation: + diminished lung sounds (on ant exam) Cardiovascular: Rate/Rhythm: regular rate and regular rhythm Extremities: + edema (trace) and + AV fistula Gastrointestinal (Abdomen): Inspection/Auscultation: normal bowel sounds Percussion/Palpation: abdomen soft; abdomen nontender Musculoskeletal: Extremities: strength 5/5 throughout LUE > can wiggle fingers, warm /not hot to touch, edematous, + radial pulse and not discolored Skin: no rashes, warm and dry Neurologic: awake (but sluggish) Psychiatric: Orientation: oriented x 3 and cooperative Results & Data ([place]) Vital Signs (Past 12 Hours) Vital Signs Temp Pulse Pulse Pulse Resp BP BP 08/11/20 14:20 78 141/69 H 08/11/20 14:00 79 144/86 H 08/11/20 13:40 78 145/92 H 08/11/20 13:20 77 150/79 H 08/11/20 13:00 79 151/89 H 08/11/20 12:40 79 144/80 H 08/11/20 12:20 78 134/92 08/11/20 12:00 76 135/76 08/11/20 11:40 74 124/77 08/11/20 11:20 76 140/112 H 08/11/20 11:00 75 95/83 L 08/11/20 10:40 65 90/65 L 08/11/20 10:28 36.9 C 76 08/11/20 08:00 80 08/11/20 07:09 36.9 C 79 19 114/77 08/11/20 07:06 76 16 08/11/20 03:36 37.1 C 86 18 124/61 Pulse Ox 08/11/20 14:20 08/11/20 14:00 08/11/20 13:40 08/11/20 13:20 08/11/20 13:00 08/11/20 12:40 08/11/20 12:20 08/11/20 12:00 08/11/20 11:40 08/11/20 11:20 08/11/20 11:00 08/11/20 10:40 08/11/20 10:28 08/11/20 08:00 08/11/20 07:09 97 08/11/20 07:06 96 08/11/20 03:36 97 Laboratory Results 08/11/20 08:09 08/11/20 08:09 (1) Anemia Anemia type: unspecified type Qualified Code(s): D64.9 - Anemia, unspecified (2) Problem with dialysis access Encounter type: sequela Qualified Code(s): T82.898S - Other specified complication of vascular prosthetic devices, implants and grafts, sequela
--- NOTE | 2020-08-11 18:22 | Hospitalist Progress Note ---
Date of Service August 11, 2020 Assessment & Plan (1) Dialysis AV fistula malfunction: (1) End-stage renal disease (ESRD): (2) Malfunctioning AV fistula Per admitting service notes: This is a 34-year-old female who has significant PMH of ESRD on HD with hx of renal transplant followed by Dr. Nieves, HTN, depression with anxiety, chronic anemia, chronically elevated troponin, IBS who presents to [facility] ED secondary to unable to access fistula at HD. POD # 5 left AV fistula revision with interposition 7 mm accuseal graft, fistulogram and percutaneous transluminal angioplasty with stenting of left peripheral vein by Dr. Claudio HD unable to access fistula today and therefore sent to ED. US LUE 15.2 x 2.7 x 6.1 cm elongated fluid collection along the anterior aspect of the graft favors a hematoma and may account for difficulty accessing the graft. Status post permacath insertion Status post HD today [employer] Examiner on board Positive edema of the left upper extremity Blood cultures pending Continue doxycycline p.o. Will need vascular surgery reevaluation (3) Symptomatic anemia: (4) Hematoma following procedure: pt with chronic anemia in setting of ESRD Globin 6.7 on admission, status post 1 unit of packed RBCs Hemoglobin now 8.8 Continue to monitor (5) HTN (hypertension): BP on low side in setting of hypovolemia BP now elevated, resume Amlodipine, Losartan, Coreg (6) Prolonged QT interval: monitor qtc avoid qtc prolonging meds (7) Depression: continue zoloft and trazodone flat affect (8) DVT prophylaxis: SCD/TEDS, no chemical prophylaxis in setting of anemia/hematoma Disposition: admit to med tele Follow up: Dr. Aldridge upon discharge Admission and Anticipated Discharge Date Admission Date: August 10, 2020 Subjective ff up for malfunctioning HD fistula access seen resting in bed, sitting up had HD today drowsy but easily awakened denies shortness of breath, chest pain, headache, dizziness reports LUE pain is improving no other symptoms Review of Systems Review of Systems: All systems reviewed & are unremarkable except as noted in Subjective Physical Exam Physical Exam: General- oriented x 3, not in distress, speaks in sentences with no effort or accessory muscle use Head- atraumatic Eyes- PERRL, EOMI, anicteric ENT- oropharynx clear Neck- supple, no JVD, no adenopathy, no thyromegaly; carotids +2/2, no bruits appreciated Lungs- clear to auscultation bilaterally, no rales/wheezes Heart- normal rate, regular rhythm; no murmur, no gallop, no rub appreciated Abdomen- normal bowel sounds, nondistended, soft, nontender, no masses or hepatosplenomegaly Extremities- LUE: (+) edema, no warmth/tenderness, tatum in place, no discharge/bleeding no pretibial edema, no calf tenderness; peripheral pulses intact Neuro- alert, oriented x 3; CN 2-12 grossly intact; motor 5/5 bilaterally;sensation 100% on all extremities; no other gross focal neurologic deficits Skin- warm & dry Results & Data Results & Data ([facility]) Vital Signs (Past 12 Hours) Vital Signs Temp Pulse Pulse Pulse Resp BP BP 08/11/20 17:32 80 08/11/20 15:35 36.9 C 80 166/87 H 08/11/20 15:20 78 155/90 H 08/11/20 15:00 78 152/89 H 08/11/20 14:40 77 162/82 H 08/11/20 14:20 78 141/69 H 08/11/20 14:00 79 144/86 H 08/11/20 13:40 78 145/92 H 08/11/20 13:20 77 150/79 H 08/11/20 13:00 79 151/89 H 08/11/20 12:40 79 144/80 H 08/11/20 12:20 78 134/92 08/11/20 12:00 76 135/76 08/11/20 11:40 74 124/77 08/11/20 11:20 76 140/112 H 08/11/20 11:00 75 95/83 L 08/11/20 10:40 65 90/65 L 08/11/20 10:28 36.9 C 76 08/11/20 08:00 80 08/11/20 07:09 36.9 C 79 19 114/77 08/11/20 07:06 76 16 Pulse Ox 08/11/20 17:32 08/11/20 15:35 08/11/20 15:20 08/11/20 15:00 08/11/20 14:40 08/11/20 14:20 08/11/20 14:00 08/11/20 13:40 08/11/20 13:20 08/11/20 13:00 08/11/20 12:40 08/11/20 12:20 08/11/20 12:00 08/11/20 11:40 08/11/20 11:20 08/11/20 11:00 08/11/20 10:40 08/11/20 10:28 08/11/20 08:00 08/11/20 07:09 97 08/11/20 07:06 96 Laboratory Results Laboratory Results - last 24 hr 08/10/20 08/10/20 08/11/20 09:00 10:26 08:09 WBC 6.62 RBC 2.86 L Hgb 8.8 L Hct 27.1 L MCV 94.8 MCH 30.8 MCHC 32.5 RDW Std Deviation 60.5 H RDW Coeff of Laith 17.6 H Plt Count 122 L MPV 9.4 Immature Gran % (Auto) 0.3 Neut % (Auto) 80.5 Lymph % (Auto) 12.2 [place] % (Auto) 5.7 Eos % (Auto) 1.1 Baso % (Auto) 0.2 Neut # (Auto) 5.33 Lymph # (Auto) 0.81 L [place] # (Auto) 0.38 Eos # (Auto) 0.07 Baso # (Auto) 0.01 Immature Gran # (Auto) 0.02 Absolute Nucleated RBC 0.03 H Nucleated RBC % (auto) 0.4 Sodium Potassium Chloride Carbon Dioxide Anion Gap BUN Creatinine Est Cr Clr Drug Dosing Est GFR ( Amer) Est GFR (Non-Af Amer) BUN/Creatinine Ratio Glucose Calcium Phosphorus Magnesium Total Bilirubin AST ALT Alkaline Phosphatase Total Protein Albumin Globulin Albumin/Globulin Ratio Procalcitonin COVID-19 Eval Order SARS-CoV-2 (PCR) Hep Bs Antigen Neg Influenza Type A (PCR) Influenza Type B (PCR) RSV (RT-PCR) Blood Type A Positive Antibody Screen NEGATIVE Crossmatch See Detail 08/11/20 08/11/20 08/11/20 08:09 08:09 13:05 WBC RBC Hgb Hct MCV MCH MCHC RDW Std Deviation RDW Coeff of Laith Plt Count MPV Immature Gran % (Auto) Neut % (Auto) Lymph % (Auto) [place] % (Auto) Eos % (Auto) Baso % (Auto) Neut # (Auto) Lymph # (Auto) [place] # (Auto) Eos # (Auto) Baso # (Auto) Immature Gran # (Auto) Absolute Nucleated RBC Nucleated RBC % (auto) Sodium 135 L Potassium 4.9 Chloride 100 Carbon Dioxide 24 Anion Gap 11.0 BUN 41 H Creatinine 9.65 H* D Est Cr Clr Drug Dosing 10.2 Est GFR ( Amer) 5.5 Est GFR (Non-Af Amer) 4.7 BUN/Creatinine Ratio 4.2 L Glucose 94 Calcium 8.3 L Phosphorus 7.4 H Magnesium 2.3 Total Bilirubin 0.4 AST 14 L ALT 29 Alkaline Phosphatase 116 Total Protein 6.2 L Albumin 2.5 L Globulin 3.7 Albumin/Globulin Ratio 0.7 L Procalcitonin 1.04 H COVID-19 Eval Order CovFluRsv at [facility] SARS-CoV-2 (PCR) Hep Bs Antigen Influenza Type A (PCR) Influenza Type B (PCR) RSV (RT-PCR) Blood Type Antibody Screen Crossmatch 08/11/20 13:05 WBC RBC Hgb Hct MCV MCH MCHC RDW Std Deviation RDW Coeff of Laith Plt Count MPV Immature Gran % (Auto) Neut % (Auto) Lymph % (Auto) [place] % (Auto) Eos % (Auto) Baso % (Auto) Neut # (Auto) Lymph # (Auto) [place] # (Auto) Eos # (Auto) Baso # (Auto) Immature Gran # (Auto) Absolute Nucleated RBC Nucleated RBC % (auto) Sodium Potassium Chloride Carbon Dioxide Anion Gap BUN Creatinine Est Cr Clr Drug Dosing Est GFR ( Amer) Est GFR (Non-Af Amer) BUN/Creatinine Ratio Glucose Calcium Phosphorus Magnesium Total Bilirubin AST ALT Alkaline Phosphatase Total Protein Albumin Globulin Albumin/Globulin Ratio Procalcitonin COVID-19 Eval Order SARS-CoV-2 (PCR) NEGATIVE Hep Bs Antigen Influenza Type A (PCR) Negative Influenza Type B (PCR) Negative RSV (RT-PCR) Negative Blood Type Antibody Screen Crossmatch
[2020-08-11] MEDS ORDERED: hydrALAZINE HCL 20 MG/ML VIAL IV PRN (18:24)
[2020-08-11] MEDS: traZODone HCL 50 MG TAB PO SCH (20:39)
[2020-08-12] MEDS: ALBUTEROL HFA 8 GM INHALER INH SCH ×2 (07:09→11:40)
[2020-08-12] MEDS: CINACALCET: ORDER AWAITING ACTION SCH (07:40)
[2020-08-12] MEDS: SERTRALINE HCL 50 MG TABLET PO SCH (07:53)
[2020-08-12] MEDS: DOXYCYCLINE HYCLATE 100 MG CAP PO SCH (07:53)
[2020-08-12] MEDS: carvediloL 3.125 MG TAB PO SCH (07:53)
[2020-08-12] MEDS: GABAPENTIN 400 MG CAP PO SCH (07:54)
[2020-08-12] MEDS: CALCIUM ACETATE 667 MG CAP/TAB PO SCH (07:54)
[2020-08-12] MEDS: NEPHROCAPS PO SCH (07:54)
[2020-08-12] MEDS ORDERED: amLODIPine BESYLATE 5 MG TAB PO SCH (09:00)
--- NOTE | 2020-08-12 09:33 | Hospitalist Progress Note ---
Date of Service August 12, 2020 Assessment & Plan (1) Dialysis AV fistula malfunction: (1) End-stage renal disease (ESRD): (2) Malfunctioning AV fistula Per admitting service notes: This is a 34-year-old female who has significant PMH of ESRD on HD with hx of renal transplant followed by Dr. Nieves, HTN, depression with anxiety, chronic anemia, chronically elevated troponin, IBS who presents to [facility] ED secondary to unable to access fistula at HD. POD # 5 left AV fistula revision with interposition 7 mm accuseal graft, fistulogram and percutaneous transluminal angioplasty with stenting of left peripheral vein by Dr. Claudio HD unable to access fistula today and therefore sent to ED. US LUE 15.2 x 2.7 x 6.1 cm elongated fluid collection along the anterior aspect of the graft favors a hematoma and may account for difficulty accessing the graft. ----- Status post permacath insertion Status post HD 08/12 Positive edema of the left upper extremity-- possible Cellulitis vs Lymphedema erythema improving with PO Doxycycline Blood cultures pending Continue doxycycline p.o. 100mg BID x 5 more days continue to monitor closely discussed with Dr. Nieves d/c today for outpatient HD (3) Symptomatic anemia: (4) Hematoma following procedure: pt with chronic anemia in setting of ESRD Hg 6.7 on admission, status post 1 unit of packed RBCs Hemoglobin now 8.8 Continue to monitor (5) HTN (hypertension): on admission, BP on low side in setting of hypovolemia, BP meds held BP now 144/88, resume Amlodipine, Coreg hold Losartan monitor (6) Prolonged QT interval: 477 on admission monitor qtc avoid qtc prolonging meds (7) Depression: continue zoloft and trazodone (8) Cough likely secondary to Pulmonary Congestion CT chest: likely pulmonary congestion Covid Ag, Abbot IDnow, Cepheid all negative afebrile (8) DVT prophylaxis: SCD/TEDS, no chemical prophylaxis in setting of anemia/hematoma Disposition: d/c home ff up with Nephro as scheduled ff up with PCP 1 in week Admission and Anticipated Discharge Date Admission Date: August 10, 2020 Subjective ff up for malfunctioning fistula etc seen resting in bed, sitting up comfortable not in distress awake, alert, oriented x 3, answers all questions appropriately states she feels better overall denies headache, dizziness, dyspnea, chest pain, abdominal pain ,nausea/vomiting, chills has moderate pain on the left arm no other symptoms Review of Systems Review of Systems: All systems reviewed & are unremarkable except as noted in Subjective Physical Exam Physical Exam: General- oriented x 3, not in distress, speaks in sentences with no effort or accessory muscle use Eyes- anicteric Neck- no JVD Lungs- clear breath sounds bilaterally, no rales/wheezes Heart- normal rate, regular rhythm; no murmurs Abdomen- normal bowel sounds, nondistended, soft, nontender Extremities- no pretibial edema, no calf tenderness LUE: mild edema, tatum in place, wound healing well, no bleeding/dischargem no warmth/erythema/tenderness Neuro- alert, oriented x 3; no gross focal neurologic deficits Skin- warm & dry Results & Data Results & Data ([facility]) Vital Signs (Past 12 Hours) Vital Signs Temp Pulse Pulse Pulse Resp BP Pulse Ox 08/12/20 07:31 36.6 C 85 18 144/88 H 95 08/12/20 07:10 85 14 95 08/12/20 03:40 36.9 C 93 H 18 142/84 H 90 08/12/20 01:35 86 08/11/20 22:50 37.2 C 88 20 140/89 95 Laboratory Results Laboratory Results - last 24 hr 08/11/20 08/11/20 08/11/20 08:09 13:05 13:05 Procalcitonin 1.04 H COVID-19 Eval Order CovFluRsv at [facility] SARS-CoV-2 (PCR) NEGATIVE Influenza Type A (PCR) Negative Influenza Type B (PCR) Negative RSV (RT-PCR) Negative
--- NOTE | 2020-08-12 09:49 | Discharge Summary ---
Date of Service August 12, 2020 Admission HPI Per Admitting Provider This is a 34-year-old female who has significant PMH of ESRD on HD with hx of renal transplant followed by Dr. Nieves, HTN, depression with anxiety, chronic anemia, chronically elevated troponin, IBS who presents to [facility] ED secondary to unable to access fistula at HD. Significance on 08/05 patient underwent left AV fistula revision with interposition 7 mm accuseal graft, fistulogram and percutaneous transluminal angioplasty with stenting of left peripheral vein on 08/05. Her last hemodialysis was on 08/05. She presented hemodialysis today but staff was unable to access fistula site. She has been complaining of significant pain to left upper extremity but the swelling has improved slightly. She has been using ice and heat. She is also taking oxycodone 5 mg every 6 hours, last dose at 5 AM. She complains of being dizzy and lightheaded with walking. She has no presyncopal but denies ed syncope. She further complains of a wet cough for the past 2 days. Denies any known COVID-19 exposures. She has chronic dyspnea on exertion and feels is unchanged. She denies any fever, chills, sweats, chest pain, palpitations, hemoptysis, nausea, vomiting, abdominal pain, melena, hematochezia. She further denies any diarrhea. She is an uric. Appetite is overall been decreased. In ED patient was very drowsy. ED provider concerned for possible misuse of narcotics. Again stated last dose at 5 AM. She was noted to be hypovlemic with hemoglobin hematocrit of 6.7 and 20.2, WBC 8.94, platelet 179, ESR 33, CRP 5.69, procalcitonin 0.54, mag 2.7, BUN 75, creatinine 15, gap 15, sodium 131 chloride 97, CO2 20 Chest x-ray negative for acute abnormality. EKG reveals T wave inversions V5, 6, leads I and 2. She was mildly hypotensive and did receive 500 of IV fluid. ED provider discussed with nephrology who also discussed with vascular surgery as patient will need hemodialysis today. Possible temporary port may need to be placed. ED discussion was had for transfusion and consent was obtained. US revealed 15.2 x 2.7 x 6.1 cm elongated fluid collection along the anterior aspect of the graft favors a hematoma. Admission Exam Per Admitting Provider Constitutional: Pale, chronically Ill, F, young, vitals as above, drowsy but arouses to verbal stimulation, answers questions appropriately, appears dry Head: Normocephalic, Atraumatic Eyes: PERRL, conjunctivae normal, anicteric sclerae ENMT: external ear and nose normal, oropharynx normal dry membranes Neck: trachea midline, no thyromegaly normal visual inspection Respiratory: normal respiratory effort, lungs clear to auscultation, no wheeze, rales, rhonchi. Normal insp/exp effort, no accessory muscle use Cardio: RRR, no murmur, no edema Vessels: no JVD or carotid bruit Vascular: LUE AV Fistula incision, tatum, incision CDI, surrounding edema, tender to palpation, no erythema Chest: normal inspection of chest Abdomen: normal bowel sounds, soft, nontender, no hepatosplenomegaly Musculoskeletal: no cyanosis or clubbing, extremities motor strength 5/5 Skin: no rashes, warm and dry mild turgor Neurologic: PERRL, EOMI, accommodation nl, no face palsy, no dysarthria CN's II-XI intact bilaterally and moves all extremities Psychiatric: A+Ox3, euthymic affect Lymphatic: no cervical or axillary lymphadenopathy : deferred Principal Diagnosis Malfunctioning AV fistula Discharge Exam General- oriented x 3, not in distress, speaks in sentences with no effort or accessory muscle use Eyes- anicteric Neck- no JVD Lungs- clear breath sounds bilaterally, no rales/wheezes Heart- normal rate, regular rhythm; no murmurs Abdomen- normal bowel sounds, nondistended, soft, nontender Extremities- no pretibial edema, no calf tenderness LUE: mild edema, tatum in place, wound healing well, no bleeding/dischargem no warmth/erythema/tenderness Neuro- alert, oriented x 3; no gross focal neurologic deficits Skin- warm & dry Discharge Data Allergies Allergy/AdvReac Type Severity Reaction Status Date / Time cefaclor Allergy Intermediate Rash Verified 08/05/20 09:34 amoxicillin AdvReac Mild VOMITING Verified 08/05/20 09:34 clavulanic acid AdvReac Mild VOMITING Verified 08/05/20 09:34 latex AdvReac Unknown Unverified 08/10/20 11:05 Consultations 08/10/20 11:29 Consult Nephrology Stat 08/10/20 11:55 ED Decision to Admit Stat 08/10/20 12:40 Consult Vascular Surgery Routine 08/10/20 17:25 Consult Case Management - Discharge Planning Routine Procedures Performed Operation Date: 08/10/20 14:35 Actual Procedures p Insertion of Perm Catheter, Right Internal Jugular Approach, Ultrasound Localization of Left Internal Jugular Vein, Fluoroscopy for Positioning. (Right) - Michael Claudio MD Ordered Studies 08/10/20 09:01 US hemodialysis access Stat 08/10/20 14:18 EV cvc insrt tunnel wo prt/energy trader Stat 08/11/20 09:55 CT chest wo con Stat Thyroid: Imaged portions of the thyroid gland are normal in appearance. Thoracic aorta: The thoracic aorta is normal in course and caliber, noting standard 3 vessel arch anatomy. Heart: There are coronary artery calcifications. The heart is mildly enlarged. There is no pericardial effusion. There is a left jugular central venous catheter. The tip is positioned within the superior vena cava Lungs and pleural spaces: There are no pleural effusions. There are subtle bilateral groundglass and interstitial opacities. This could represent atelectasis, areas of minimal focal edema, or infectious/inflammatory process,. Correlation with Covid 19 testing is recommended. There is no lobar consolidation. Mediastinum: Mediastinal lymph nodes are the upper limits of normal in size. Darling: There is no evidence of pathologic hilar adenopathy given the limitations of a noncontrast study. Axilla: There is no evidence of pathologic axillary lymphadenopathy. Upper abdomen: Partially visualized upper abdominal viscera is within normal limits. Skeletal structures: There are no lytic or blastic osseous lesions. IMPRESSION: 1. Cardiomegaly and coronary artery calcifications 2. Subtle scattered groundglass and interstitial pulmonary opacities. This could represent atelectasis, areas of minimal focal edema, or an infectious/inflammatory process. 3. No evidence of lobar consolidation. Hospital Course (1) Dialysis AV fistula malfunction: (1) End-stage renal disease (ESRD): (2) Malfunctioning AV fistula Per admitting service notes: This is a 34-year-old female who has significant PMH of ESRD on HD with hx of renal transplant followed by Dr. Nieves, HTN, depression with anxiety, chronic anemia, chronically elevated troponin, IBS who presents to [facility] ED secondary to unable to access fistula at HD. POD # 5 left AV fistula revision with interposition 7 mm accuseal graft, fistulogram and percutaneous transluminal angioplasty with stenting of left peripheral vein by Dr. Claudio HD unable to access fistula today and therefore sent to ED. US LUE 15.2 x 2.7 x 6.1 cm elongated fluid collection along the anterior aspect of the graft favors a hematoma and may account for difficulty accessing the graft. ----- Status post permacath insertion Status post HD 08/12 Positive edema of the left upper extremity-- possible Cellulitis vs Lymphedema erythema improving with PO Doxycycline Blood cultures pending Continue doxycycline p.o. 100mg BID x 5 more days continue to monitor closely discussed with Dr. Nieves d/c today for outpatient HD (3) Symptomatic anemia: (4) Hematoma following procedure: pt with chronic anemia in setting of ESRD Hg 6.7 on admission, status post 1 unit of packed RBCs Hemoglobin now 8.8 Continue to monitor (5) HTN (hypertension): on admission, BP on low side in setting of hypovolemia, BP meds held BP now 144/88, resume Amlodipine, Coreg hold Losartan monitor (6) Prolonged QT interval: 477 on admission monitor qtc avoid qtc prolonging meds (7) Depression: continue zoloft and trazodone (8) Cough likely secondary to Pulmonary Congestion CT chest: likely pulmonary congestion Covid Ag, Abbot IDnow, Cepheid all negative afebrile (8) DVT prophylaxis: SCD/TEDS, no chemical prophylaxis in setting of anemia/hematoma Disposition: d/c home ff up with Nephro as scheduled ff up with PCP 1 in week Total Time Total Time Spent Total Time Spent (In Minutes): 40 minutes Discharge Plan Discharge Items Patient Disposition: Home - Self-Care Reason For Visit: ESRD REQUIRING HD Discharge Diagnosis: Malfunctioning Fistula Condition on Discharge: Good Activity: Resume your previous activity Activity Comment: Gradually as tolerated Non-emergency contact: Primary Care Provider Call non-emergency contact if: you have any medication questions, your symptoms worsen, your pain is not controlled, your pain is worsening, your pain is unusual for you, your pain is concerning for you, you have a fever, your wound has increased redness, your wound has increased drainage and your wound pain has increased Follow-up/Referrals: Adolph Aldridge MD [Primary Care Provider] - (Date & Time 08/16/2020 11:20 AM Provider Adolph Aldridge MD Department [facility] ) Diet: Dialysis Renal and Heart Healthy Addtl Attending Provider Instructions: Please review your new medication list and follow instructions carefully. Your new medication is Doxycycline -antibiotic for possible left arm infection. Hold (do not take) Losartan for now. Further advice to be given by your Primary Care Physician or [employer]. Take probiotics/yogurt daily. Call Primary Care Physician or return to the ER if with fever/chills, left arm swelling/redness/pain/bleeding/discharge, weakness, shortness of breath, headache, nausea/vomiting. diarrhea. Follow up with Primary Care Physician as scheduled above. Follow up with [employer] as scheduled. Pending Studies at Discharge: Yes Studies:: Final Blood Culture results (drawn 08/10/[address] [facility]) Stand-Alone Forms: My [facility] [place], Smoking Cessation Medications and DC Order Prescriptions: New doxycycline hyclate 100 mg Capsule 100 mg PO BID Qty: 10 RF: 0 Continued calcium acetate(phosphat bind) 667 mg capsule 667 mg PO UD RF: 0 sertraline 100 mg tablet 150 mg PO QAM RF: 0 oxycodone [Roxicodone] 5 mg tablet 5 mg PO Q8H PRN (Reason: pain, severe) Qty: 3 RF: 0 gabapentin [Neurontin] 400 mg Capsule See Rx Instructions .ROUTE .COMPLEX RF: 0 trazodone 50 mg tablet 150 mg PO HS RF: 0 Auryxia 210 mg iron tablet 210 mg PO UD RF: 0 carvedilol 3.125 mg tablet 3.125 mg PO BID RF: 0 cinacalcet [Sensipar] 30 mg tablet 60 mg PO PM RF: 0 hydroxyzine HCl 25 mg tablet 25 mg PO Q6 PRN (Reason: Anxiety) RF: 0 albuterol sulfate 90 mcg/actuation HFA aerosol inhaler 2 puff INHALATION QID RF: 0 lorazepam 0.5 mg tablet 0.5 mg PO Q8 PRN (Reason: Panic Attack(S)) RF: 0 oxycodone-acetaminophen [Percocet] 5-325 mg tablet 1 tab PO Q4H PRN (Reason: pain) Qty: 40 RF: 0 amlodipine 10 mg Tablet 10 mg PO DAILY RF: 0 Renal Vitamin 0.8 mg Tablet 1 tab PO DAILY RF: 0 Discontinued losartan 100 mg tablet 100 mg PO QAM RF: 0 Discharge Orders: Discharge Order (Routine); Ordered 08/12/20 Ordered By: Edmar Davis Admission Data Admit Date/Time: 08/10/20 11:49 Attending Provider: Edmar Davis Admit Provider: Ambreen Lutz Primary Care Provider: Adolph Aldridge Other Providers: Leah Nieves ; Ambreen Lutz ; Michael Claudio Other Interventions: Discharge Summary Assessment (RN) Last Done: 08/12/20 10:22
--- NOTE | 2020-08-12 17:45 | Nephrology Progress Note ---
Date of Service August 12, 2020 Assessment & Plan (1) ESRD (end stage renal disease) on dialysis: anuric pt w/ ESRD on HD MWF; last HD 08/05, 5 days before admission; had 2.5 hr HD day of admission on large dialyzer; had 5hrs tx yesterday >was d/c today at about noon; pt did not however come for OP dialysis (2) Acute hypotension: resolved (3) Acute alteration in mental status: resolved (4) Anemia: presenting hgb 6.7;had 2 units pRBC and improved today to 8.8 (5) Problem with dialysis access: outpt dialysis team unable to cannulate despite repeated attempts Vascular aware and to see pt - got tdc defer to vascular to evaluate arm - may need to call them for recs; recommend tylenol, ice, arm elevation; past this per vascular; will also need/ likely already has op f/u to eval AVG Admission and Anticipated Discharge Date Admission Date: August 10, 2020 Subjective seen on rounds at 0900; c/o ongoing arm pain and edema; no bleeding, no redness; no sob, no n/v; plan at the time for d/c for 11 am chair time at OP dialysis Review of Systems Review of Systems: All systems reviewed & are unremarkable except as noted in HPI & below Physical Exam Constitutional: well developed, well nourished and + obese; no acute distress and no altered mental status Eyes: EOM intact bilaterally ENMT: Ears: no external ear abnormality Nose: no external nose abnormality Mouth: + dry oral mucous membranes Neck: no nuchal rigidity Respiratory: normal respiratory effort Auscultation: + diminished lung sounds Cardiovascular: RRR, no murmur, no edema Extremities: + AV fistula Gastrointestinal (Abdomen): Inspection/Auscultation: normal bowel sounds Percussion/Palpation: abdomen soft; abdomen nontender Musculoskeletal: Extremities: strength 5/5 throughout Skin: no rashes, warm and dry avf incision not red/inflamed/hot ; L arm armpit to finger tip swollen Neurologic: awake (but sluggish) Psychiatric: Orientation: oriented x 3 and cooperative Results & Data ([place]) Vital Signs (Past 12 Hours) Vital Signs Temp Pulse Pulse Pulse Resp BP Pulse Ox 08/12/20 11:24 36.8 C 83 16 131/84 91 08/12/20 10:22 36.6 C 70 88 85 18 144/88 H 95 08/12/20 07:31 36.6 C 85 18 144/88 H 95 08/12/20 07:10 85 14 95 Laboratory Results 08/11/20 08:09 08/11/20 08:09 (1) Anemia Anemia type: unspecified type Qualified Code(s): D64.9 - Anemia, unspecified (2) Problem with dialysis access Encounter type: sequela Qualified Code(s): T82.898S - Other specified complication of vascular prosthetic devices, implants and grafts, sequela
== END 2020-08-12 12:00 | disposition home or self-care (01) | DRG 919 ==
LOC: ED 08:13 → 2N 11:49 → SUATTDRO 11:49 → 2N 14:22
DX: Y83.2 Surgical operation with anastomosis, bypass or graft as the cause of abnormal reaction of the patient, or of later complication, without mention of misadventure at the time of the procedure; I97.638 Postprocedural hematoma of a circulatory system organ or structure following other circulatory system procedure; Z88.1 Allergy status to other antibiotic agents; F31.9 Bipolar disorder, unspecified; E86.1 Hypovolemia; E11.40 Type 2 diabetes mellitus with diabetic neuropathy, unspecified; Z91.040 Latex allergy status; N18.6 End stage renal disease; K58.9 Irritable bowel syndrome, unspecified; Z94.0 Kidney transplant status; R09.89 Other specified symptoms and signs involving the circulatory and respiratory systems; Z83.3 Family history of diabetes mellitus; F17.210 Nicotine dependence, cigarettes, uncomplicated; E11.22 Type 2 diabetes mellitus with diabetic chronic kidney disease; K21.9 Gastro-esophageal reflux disease without esophagitis; D63.1 Anemia in chronic kidney disease; R79.89 Other specified abnormal findings of blood chemistry; G25.81 Restless legs syndrome; I13.11 Hypertensive heart and chronic kidney disease without heart failure, with stage 5 chronic kidney disease, or end stage renal disease; I95.89 Other hypotension; Z99.2 Dependence on renal dialysis; L03.114 Cellulitis of left upper limb

== ENCOUNTER 2020-09-26 08:15 | Inpatient (IN) ==
--- NOTE | 2020-09-26 09:27 | XRay Report ---
SINGLE VIEW CHEST CLINICAL HISTORY: Catheter dysfunction. FINDINGS: An AP, portable, upright chest radiograph is compared to study dated 09/11/2020. A left subc lavian central venous catheter is unchanged in position. The tip projects over the SVC. The heart is mildly enlarged. The pulmonary vasculature is noncongested. The lungs and pleural spaces are clear. N o pneumothorax is seen. The bony thorax is grossly intact. IMPRESSION: Cardiomegaly with no active disease in the chest. ACT 112: Negative or not required by law. Electronically signed by: North Quintero M.D. 09/26/2020 9:26 AM
[2020-09-26] MEDS ORDERED: ALTEPLASE, RECOMBINANT 1 MG/ML 2ML VIAL INSTIL ONE ×3 (09:29→11:30)
--- NOTE | 2020-09-26 13:59 | History & Physical Report ---
Date of Service September 26, 2020 Assessment & Plan (1) Complication, dialysis catheter clot or failure: (2) Need for acute hemodialysis: (3) ESRD (end stage renal disease) on dialysis: (4) Depression: This is a 34yo F with a PMH of ESRD on dialysis with numerous access issues, type 2 diabetes, hypertension, mood disorder, tobacco use and other medical problems listed below who presents from [facility] with dialysis access malfunction. Patient with ongoing dialysis access issues. Recently, had left upper arm AV graft placed by Dr. Claudio on 08/05/2020 but then required a left IJ TDC to be placed. The new catheter has not been functioning well and patient has been undergoing partial dialysis Plans for a left arm fistula/[id number] and possible TDC removal/replacement on 09/29/2020 at [facility] Given alteplase by dialysis nurse with improved function of line - admitted for inpatient dialysis Discussed with nephrology I&Os, renal diet Continue phoslo, auryxia, sensipar Hypertension Normotensive Continue amlodipine, Coreg, Losartan Depression Continue zoloft and trazodone DVT Ppx: SCDs for now Code status: FULL PCP: Luis Carlos Dispo: Admitted to PCU Patient seen in collaboration with Dr. Davis. Please see addendum. History of Present Illness Chief Complaint: dialysis access Primary Care Provider: Adolph Aldridge MD This is a 34yo F with a PMH of ESRD on dialysis with numerous access issues, type 2 diabetes, hypertension, mood disorder, tobacco use and other medical problems listed below who presents from [facility] with dialysis access malfunction. Patient with ongoing dialysis access issues. Recently, had left upper arm AV graft placed by Dr. Claudio on 08/05/2020 but then required a left IJ TDC to be placed. The new catheter has not been functioning well and the graft is still not able to support dialysis. Has also had significant edema in the left arm since graft placement, which is thought to be contributing to poor functioning of TDC and AV graft. Is transitioning to [facility] for vascular care with plans for a left arm fistula/[id number] and possible TDC removal/replacement on 09/29/2020. Was at [facility] dialysis this morning and was found to have multiple clots in left upper arm AV graft access. Attempted to access catheter but did not work. Was sent to [facility] for further assessment of access malfunction. Was given alteplase by dialysis nurse and is now requiring admission for inpatient dialysis. Denies any new symptoms. No fever, chills, headache, lightheadedness, chest pain, shortness of breath, abdominal pain, diarrhea or constipation. Does not make urine. Denies any medication changes. Swelling in left upper extremity has continued to improve with some minimal swelling left and forearm. Allergies Allergy/AdvReac Type Severity Reaction Status Date / Time cefaclor Allergy Intermediate Rash Verified 09/26/20 08:56 amoxicillin AdvReac Mild VOMITING Verified 09/26/20 08:56 clavulanic acid AdvReac Mild VOMITING Verified 09/26/20 08:56 Home Medications Medication Instructions Recorded Confirmed Type gabapentin [Neurontin] See Rx Instructions .ROUTE .COMPLEX 01/24/19 09/26/20 History Auryxia 210 mg PO UD 10/17/19 09/26/20 History trazodone 150 mg PO HS 10/17/19 09/26/20 History carvedilol 3.125 mg PO BID 12/21/19 09/26/20 History cinacalcet [Sensipar] 60 mg PO PM 12/21/19 09/26/20 History hydroxyzine HCl 25 mg PO Q6 PRN 04/21/20 09/26/20 History calcium acetate(phosphat bind) 667 mg PO UD 06/22/20 09/26/20 History albuterol sulfate 2 puff INHALATION QID 08/01/20 09/26/20 History lorazepam 0.5 mg PO Q8 PRN 08/01/20 09/26/20 History sertraline 150 mg PO QAM 08/02/20 09/26/20 History Renal Vitamin 1 tab PO DAILY 08/10/20 09/26/20 History amlodipine 10 mg PO HS 08/10/20 09/26/20 History Past Med/Surg History Medical History Anemia Anxiety and depression Asthma "BEEN A WHILE" SINCE USING LAST RESCUE INHALER AVF (arteriovenous fistula) Bipolar disorder CKD (chronic kidney disease) stage V requiring chronic dialysis Dialysis patient SATURDAY/SAT/SATURDAY AT [facility] DM2 (diabetes mellitus, type 2) CONTROLLED WITH DIET AND EXERCISE Fistula LEFT ARM FSGS (focal segmental glomerulosclerosis) DX INITIALLY 2012 (CAUSING ESRD 2012) GERD (gastroesophageal reflux disease) HTN (hypertension) Migraine Peripheral neuropathy Prolonged QT interval Restless leg syndrome Surgical History H/O eye surgery LASER SURGERY LEFT H/O hernia repair ABDOMINAL WALL H/O knee surgery LEFT KNEE X 2 H/O tubal ligation H/O: X 2 History of cardiac cath 2016 NO STENTS History of cholecystectomy History of colonoscopy History of tooth extraction three TOOTH Kidney transplant recipient 2014 AT [facility] Family History Grandmother Hx of CABG Mother Diabetes Father Crohn's disease Grandfather (Maternal) Diabetes Uncle Diabetes Social History Smoking Status: Current every day smoker Tobacco Type: Cigarettes Cigarettes Per Day: 20; Second Hand Exposure: No; Hx Alcohol Use: Yes (rare) Alcohol type: hard liquor Alcohol Intake Frequency Comment: q3 months Hx Substance Use: No Preferred Language: Polish Communication Ability: Effective Boiler Installer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 Beliefs That Will Affect Care: None marital status: Current Living Situation: Significant Other Current Living Situation Comment: with friend How many Children do You have: 2 Other Information That Helps Us Care for You: No Feels Safe at Home: Yes Safety Concerns: Feels Safe At This Time Assistive Devices: None Review of Systems Review of Systems: At least ten systems reviewed and negative except as noted in the HPI. Physical Exam Physical Exam: General Appearance: WD/WN, vitals as above, NAD, sitting up in bed, pleasant, conversing easily Head: normocephalic, atraumatic Eyes: normal inspection, PERRL, conjunctivae normal, anicteric sclerae ENT: external ear and nose normal, oropharynx normal Neck: normal visual inspection, trachea midline, no thyromegaly. L IJ catheter in use during dialysis Respiratory: normal respiratory effort, lungs clear to auscultation, no wheeze, rales, rhonchi. No accessory muscle use Cardiovascular: regular rate, rhythm, no murmur, normal peripheral pulses, no BLE edema. Vessels: no JVD Chest: normal inspection of chest Abdomen/GI: normal bowel sounds, soft, nontender, no hepatosplenomegaly Extremities/Musculoskeletal: no cyanosis or clubbing, extremities motor strength 5/5. LUE with AV graft and mild surrounding edema to mid forearm Neurologic: PERRL, EOMI, accommodation nl, no face palsy, no dysarthria, CN's II-XI intact bilaterally and moves all extremities Psychiatric: A+Ox3, euthymic affect Skin: no rashes, normal color, warm/dry Results & Data Results & Data ([facility]) Vital Signs (Past 12 Hours) Vital Signs Temp Pulse Pulse Resp BP BP Pulse Ox 09/26/20 13:00 69 16 121/73 99 09/26/20 09:45 81 16 126/83 99 09/26/20 08:25 36.6 C 71 16 140/98 100 Laboratory Results Short CBC 09/26/20 Range/Units 13:57 WBC 6.06 (4.8-10.8) K/uL Hgb 9.6 L (12.0-16.0) g/dL Hct 29.1 L (37-47) % Plt Count 166 (130-400) K/uL BMP 09/26/20 13:57 Sodium 133 L Potassium 4.5 Chloride 96 L Carbon Dioxide 23 BUN 50 H Creatinine 10.60 H* Glucose 109 H Calcium 9.1 Liver Function 09/26/20 Range/Units 13:57 Total Bilirubin 0.3 (0.2-1) mg/dl AST 17 (15-37) U/L ALT 38 (12-78) U/L Alkaline Phosphatase 89 (45-117) U/L Albumin 3.1 L (3.4-5.0) gm/dl Diagnostic Findings CXR: IMPRESSION: Cardiomegaly with no active disease in the chest. Supervising Physician Co-Signing Physician Notes delayed entry date of service 09/26/20 Attending Addendum: care coordinated with AMY Jaramillo please refer to her notes for full details, I agree with her notes patient seen and examined, records reviewed by myself as well on exam, patient seen resting in bed, comfortable , sitting up s/p HD states she feels fine overall denies headache, dizziness, chest pain, dyspnea, cough no arm pain no fever/chills no other symptoms VS noted and reviewed oriented x 3, not in distress, speaks in sentences with no effort nor accessory muscle use normal rate, regular rhythm, no murmurs clear breath sounds bilaterally non distended, soft, nontender no bipedal edema, erythema, warmth no neuro deficits WBC 6.0 Hg 9.6 Crea 10 ASSESSMENT AND PLAN ESRD, ON HD s/p HD using Permcath tolerated well no symptoms HTN stable continue usual BP meds other diagnoses and plan of care as per AMY Davis MD (1) Depression Depression Type: unspecified Qualified Code(s): F32.9 - Major depressive disorder, single episode, unspecified
[2020-09-26 14:25] LABS: Basophils # (auto) 0.02 K/uL (0-0.2); Basophils % (auto) 0.3 %; Eosinophils # (auto) 0.15 K/uL (0-0.5); Eosinophils % (auto) 2.5 %; Hematocrit (blood only) 29.1 % (37-47); Hemoglobin 9.6 g/dL (12.0-16.0); Immature Granulocytes # (auto) 0.01 K/uL (0.00-0.02); Immature Granulocytes % (auto) 0.2 %; Lymphocytes # (auto) 1.25 K/uL (1.2-3.4); Lymphocytes % (auto) 20.6 %; Mean Corpuscular Hemoglobin 32.1 pg (25-34); Mean Corpuscular Volume 97.3 fL (80-100); Mean Platelet Volume 9.8 fL (7.4-10.4); Monocytes # (auto) 0.32 K/uL (0.11-0.59); Monocytes % (auto) 5.3 %; Neutrophils # (auto) 4.31 K/uL (1.4-6.5); Neutrophils % (auto) 71.1 %; Platelet Count 166 K/uL (130-400); RDW Coefficient of Variation 16.4 % (11.5-14.5); RDW Standard Deviation 57.3 fL (36.4-46.3); Red Blood Count 2.99 M/uL (4.2-5.4); White Blood Count 6.06 K/uL (4.8-10.8)
[2020-09-26 14:44] LABS: Albumin Globulin Ratio 0.8 (0.9-2); Albumin Level 3.1 gm/dl (3.4-5.0); BUN Creatinine Ratio 4.7 (10-20); Bilirubin,Total 0.3 mg/dl (0.2-1); Calcium 9.1 mg/dl (8.5-10.1); Est GFR (African American) 4.9; Est GFR (Non-African American) 4.2; Potassium 4.5 mmol/L (3.5-5.1); Total Protein 7.1 gm/dl (6.4-8.2)
--- NOTE | 2020-09-26 15:40 | Emergency Department Note ---
Impression & Plan Complication, dialysis catheter clot or failure, Need for acute hemodialysis ED Provider Note NAME: NATHALIA DUTTON AGE: 34 SEX: F ARRIVES VIA: Ambulance INFORMANT: Patient ED PROVIDER(S): Asiya Sun MD CHIEF COMPLAINT: Dialysis cath and fistula not working PLAN: Disposition: Inpatient Condition: Fair Referral: Hospitalist MEDICAL DECISION MAKING: This pt was evaluated and appeared to be sleeping, was in no distress. Consultation with the dialysis nurse was placed. Pt was sent with 2 doses of cathflow to the inpatient dialysis unit for evaluation of the catheter. After installation of the cathflow both ports were cleared. Upon return to the ED, pt's outpt clinic was contacted, approximately 1:30pm. They were unable to accomodate the pt that afternoon and they are closed the next day. Pt was unable to arrange private transport to the [facility] for outpatient chau atment. Pt was d/w the inpatient team for further care. She was aware of the plan and agreed. Triage Nursing notes reviewed. Prior medical records reviewed Vital Signs: reviewed and remarkable for no significant abnormalities Differential diagnosis: blocked catheter, infection, kinked catheter, broken lumen, fistula malfunction ER treatment provided: cathflow installation Laboratory studies: See below Imaging studies: SINGLE VIEW CHEST CLINICAL HISTORY: Catheter dysfunction. FINDINGS: An AP, portable, upright chest radiograph is compared to study dated 09/11/2020. A left subclavian central venous catheter is unchanged in position. The tip projects over the SVC. The heart is mildly enlarged. The pulmonary vasculature is noncongested. The lungs and pleural spaces are clear. No pneumothorax is seen. The bony thorax is grossly intact. IMPRESSION: Cardiomegaly with no active disease in the chest. ACT 112: Negative or not required by law. Electronically signed by: North Quintero M.D. 09/26/2020 9:26 AM Dictated: 09/26/20924Transcribed: 09/26/20924 Consultation(s): Dialysis nurse Hospitalist HPI: 34/F arrives for evaluation of a dysfunctional dialysis catheter. Pt sta lev they were unable to access her fistula and her subclavian catheter today. She was sent in for evaluation. The fistula has not been functional for months, according to the pt. The catheter was placed in mid August here at [facility]. Pt denies recent pain, fevers, chills, cough, vomiting, diarrhea. ROS: See above HPI for pertinent positives & negatives. A total of 10 systems reviewed and were otherwise negative. PAST MEDICAL HISTORY:See Below PAST SURGICAL HISTORY:See Below FAMILY HISTORY:See Below SOCIAL HISTORY:See Below HOME MEDICATIONS:See Below ALLERGIES:See Below VITALS:See Below PHYSICAL EXAMINATION: Vital signs reviewed. General: Chronically-ill appearing 34 yo female, in no significant distress. HEENT: No scleral icterus, PERRLA, neck supple. Atraumatic. Cardiovascular: Regular rate and rhythm, no extra sounds. Pulmonary: Clear to auscultation bilaterally, normal work of breathing. Abdomen: Soft, obese, nontender, nondistended, positive bowel sounds. Musculoskeletal: L subclavian catheter, no peripheral edema. Neurologic: Patient somnolent but arousable and oriented x 3 Skin: Warm, dry, no rash Asiya Sun MD Past Med/Surg History Medical History Anemia Anxiety and depression Asthma "BEEN A WHILE" SINCE USING LAST RESCUE INHALER AVF (arteriovenous fistula) Bipolar disorder CKD (chronic kidney disease) stage V requiring chronic dialysis Dialysis patient SATURDAY/SAT/SATURDAY AT [facility] DM2 (diabetes mellitus, type 2) CONTROLLED WITH DIET AND EXERCISE Fistula LEFT ARM FSGS (focal segmental glomerulosclerosis) DX INITIALLY 2012 (CAUSING ESRD 2012) GERD (gastroesophageal reflux disease) HTN (hypertension) Migraine Peripheral neuropathy Prolonged QT interval Restless leg syndrome Surgical History H/O eye surgery LASER SURGERY LEFT H/O hernia repair ABDOMINAL WALL H/O knee surgery LEFT KNEE X 2 H/O tubal ligation H/O: X 2 History of cardiac cath 2017 NO STENTS History of cholecystectomy History of colonoscopy History of tooth extraction three TOOTH Kidney transplant recipient 2013 AT [facility] Family History Grandmother Hx of CABG Mother Diabetes Father Crohn's disease Grandfather (Maternal) Diabetes Uncle Diabetes Social History Smoking Status: Current every day smoker Tobacco Type: Cigarettes Cigarettes Per Day: 20; Second Hand Exposure: No; Hx Alcohol Use: Yes (rare) Alcohol type: hard liquor Alcohol Intake Frequency Comment: q3 months Hx Substance Use: No Preferred Language: Mongolian Communication Ability: Effective 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 Beliefs That Will Affect Care: None marital status: Current Living Situation: Significant Other Current Living Situation Comment: with friend How many Children do You have: 2 Other Information That Helps Us Care for You: No Feels Safe at Home: Yes Safety Concerns: Feels Safe At This Time Assistive Devices: None Allergies Allergies Allergy/AdvReac Type Severity Reaction Status Date / Time cefaclor Allergy Intermediate Rash Verified 09/26/20 08:56 amoxicillin AdvReac Mild VOMITING Verified 09/26/20 08:56 clavulanic acid AdvReac Mild VOMITING Verified 09/26/20 08:56 Home Meds Home Medications Medication Instructions Recorded Confirmed gabapentin [Neurontin] See Rx Instructions .ROUTE .COMPLEX 01/24/19 09/26/20 Auryxia 210 mg PO UD 10/17/19 09/26/20 trazodone 150 mg PO HS 10/17/19 09/26/20 carvedilol 3.125 mg PO BID 12/21/19 09/26/20 cinacalcet [Sensipar] 60 mg PO PM 12/21/19 09/26/20 hydroxyzine HCl 25 mg PO Q6 PRN 04/21/20 09/26/20 calcium acetate(phosphat bind) 667 mg PO UD 06/22/20 09/26/20 albuterol sulfate 2 puff INHALATION QID 08/01/20 09/26/20 lorazepam 0.5 mg PO Q8 PRN 08/01/20 09/26/20 sertraline 150 mg PO QAM 08/02/20 09/26/20 Renal Vitamin 1 tab PO DAILY 08/10/20 09/26/20 amlodipine 10 mg PO HS 08/10/20 09/26/20 Results & Data (ED) Vital Signs Vital Signs - 24 hr 09/26/20 08:25 09/26/20 09:45 09/26/20 13:00 Temperature 36.6 C Temperature Source Oral Pulse Rate 71 Pulse Rate [Finger] 81 69 Respiratory Rate 16 16 16 Respiratory Effort / Characteristics Non-Labored Spontaneous Respiratory Depth Normal Respiratory Pattern Regular Blood Pressure 140/98 Blood Pressure [Right Arm] 126/83 121/73 Blood Pressure Mean 112 Blood Pressure Mean [Right Arm] 97 89 Blood Pressure Position [Right Arm] Lying Pulse Oximetry 100 99 99 Oxygen Delivery Method Room Air Room Air Room Air Sepsis Recent Fever Within 48 Hours No Sepsis New/Unexplained Change in Mental Status N/A Sepsis Action Taken by Nursing No Action Required 09/26/20 15:04 Temperature Temperature Source Pulse Rate Pulse Rate [Finger] Respiratory Rate Respiratory Effort / Characteristics Respiratory Depth Respiratory Pattern Blood Pressure Blood Pressure [Right Arm] Blood Pressure Mean Blood Pressure Mean [Right Arm] Blood Pressure Position [Right Arm] Pulse Oximetry Oxygen Delivery Method Room Air Sepsis Recent Fever Within 48 Hours Sepsis New/Unexplained Change in Mental Status Sepsis Action Taken by Long-Term Medications Current Medication List: was personally reviewed by me Laboratory Data Attestation: I reviewed the patient's lab results. Result diagrams: 09/26/20 13:57 09/26/20 13:57 Lab Results 09/26/20 09/26/20 Range/Units 13:57 13:57 WBC 6.06 (4.8-10.8) K/uL RBC 2.99 L (4.2-5.4) M/uL Hgb 9.6 L (12.0-16.0) g/dL Hct 29.1 L (37-47) % MCV 97.3 (80-100) fL MCH 32.1 (25-34) pg MCHC 33.0 (32-36) g/dL RDW Std Deviation 57.3 H (36.4-46.3) fL RDW Coeff of Laith 16.4 H (11.5-14.5) % Plt Count 166 (130-400) K/uL MPV 9.8 (7.4-10.4) fL Immature Gran % (Auto) 0.2 % Neut % (Auto) 71.1 % Lymph % (Auto) 20.6 % [place] % (Auto) 5.3 % Eos % (Auto) 2.5 % Baso % (Auto) 0.3 % Neut # (Auto) 4.31 (1.4-6.5) K/uL Lymph # (Auto) 1.25 (1.2-3.4) K/uL [place] # (Auto) 0.32 (0.11-0.59) K/uL Eos # (Auto) 0.15 (0-0.5) K/uL Baso # (Auto) 0.02 (0-0.2) K/uL Immature Gran # (Auto) 0.01 (0.00-0.02) K/uL Sodium 133 L (136-145) mmol/L Potassium 4.5 (3.5-5.1) mmol/L Chloride 96 L (98-107) mmol/L Carbon Dioxide 23 (21-32) mmol/L Anion Gap 14.0 H (3-11) BUN 50 H (7-18) mg/dl Creatinine 10.60 H* (0.6-1.2) mg/dl Est Cr Clr Drug Dosing 9.0 ml/min Est GFR ( Amer) 4.9 Est GFR (Non-Af Amer) 4.2 BUN/Creatinine Ratio 4.7 L (10-20) Glucose 109 H (70-99) mg/dl Calcium 9.1 (8.5-10.1) mg/dl Total Bilirubin 0.3 (0.2-1) mg/dl AST 17 (15-37) U/L ALT 38 (12-78) U/L Alkaline Phosphatase 89 (45-117) U/L Total Protein 7.1 (6.4-8.2) gm/dl Albumin 3.1 L (3.4-5.0) gm/dl Globulin 4.0 (2.5-4.0) gm/dl Albumin/Globulin Ratio 0.8 L (0.9-2) Administered Medications Discontinued Medications Albuterol (Albuterol Hfa 8 Gm Inhaler) 2 puffs INH QIDR NIKKI Stop: 10/26/20 18:59 Last Admin: 09/27/20 07:33 Dose: 2 puffs Documented by: [id number] Admin: 09/26/20 19:50 Dose: 2 puffs Documented by: [id number] Alteplase, Recombinant (Alteplase, Recombinant 1 Mg/Ml 2ml Vial) 2 mg INSTIL ONE ONE Stop: 09/26/20 09:30 Last Admin: 09/27/20 10:37 Dose: Not Given Documented by: [id number] Alteplase, Recombinant (Alteplase, Recombinant 1 Mg/Ml 2ml Vial) 2 mg INSTIL ONE ONE Stop: 09/26/20 09:46 Last Admin: 09/27/20 10:37 Dose: Not Given Documented by: [id number] Alteplase, Recombinant (Alteplase, Recombinant 1 Mg/Ml 2ml Vial) 2 mg INSTIL ONE ONE Stop: 09/26/20 11:31 Last Admin: 09/27/20 10:37 Dose: Not Given Documented by: [id number] Amlodipine Besylate (Amlodipine Besylate 5 Mg Tab) 10 mg PO HS [facility] Stop: 10/26/20 20:59 Last Admin: 09/26/20 20:06 Dose: 10 mg Documented by: [id number] Calcium Acetate (Calcium Acetate 667 Mg Cap/Tab) 1,334 mg PO TIDM [facility] Stop: 10/26/20 18:59 Last Admin: 09/27/20 12:28 Dose: 1,334 mg Documented by: [id number] Admin: 09/27/20 08:59 Dose: 1,334 mg Documented by: [id number] Admin: 09/26/20 20:06 Dose: 1,334 mg Documented by: [id number] Carvedilol (Carvedilol 3.125 Mg Tab) 3.125 mg PO BID [facility] Stop: 10/26/20 20:59 Last Admin: 09/27/20 08:58 Dose: 3.125 mg Documented by: [id number] Admin: 09/26/20 20:06 Dose: 3.125 mg Documented by: [id number] Gabapentin (Gabapentin 400 Mg Cap) 400 mg PO BID@0800,1200 [facility] Stop: 10/27/20 07:59 Last Admin: 09/27/20 12:28 Dose: 400 mg Documented by: [id number] Admin: 09/27/20 08:58 Dose: 400 mg Documented by: [id number] Gabapentin (Gabapentin 800 Mg Tab) 800 mg PO QDD [facility] Stop: 10/26/20 17:59 Last Admin: 09/26/20 20:06 Dose: 800 mg Documented by: [id number] Lorazepam (Lorazepam 0.5 Mg Tab) 0.5 mg PO Q8 PRN PRN Reason: Panic Attack(S) Stop: 10/26/20 17:59 Last Admin: 09/27/20 11:30 Dose: 0.5 mg Documented by: [id number] Miscellaneous (Sensipar- Order Awaiting Action) 1 ea N/A QS [facility] Stop: 10/27/20 00:00 Last Admin: 09/27/20 08:59 Dose: Not Given Documented by: [id number] Admin: 09/27/20 00:41 Dose: Not Given Documented by: [id number] Miscellaneous (Auryxia- Order Awaiting Action) 1 ea N/A QS NIKKI Stop: 10/27/20 00:00 Last Admin: 09/27/20 08:59 Dose: Not Given Documented by: [id number] Admin: 09/27/20 00:41 Dose: Not Given Documented by: [id number] Sertraline HCl (Sertraline Hcl 50 Mg Tablet) 150 mg PO QAM [facility] Stop: 10/27/20 08:59 Last Admin: 09/27/20 08:58 Dose: 150 mg Documented by: [id number] Trazodone HCl (Trazodone Hcl 50 Mg Tab) 150 mg PO HS [facility] Stop: 10/26/20 20:59 Last Admin: 09/26/20 20:06 Dose: 150 mg Documented by: [id number] Vitamin B Complex/Folic Acid (Nephrocaps) 1 cap PO DAILY NIKKI Stop: 10/27/20 08:59 Last Admin: 09/27/20 08:58 Dose: 1 cap Documented by: [id number] Discharge Plan Visit Data Chief Complaint: Referred by Doctor ED Provider: Asiya Sun Discharge Problem: Complication, dialysis catheter clot or failure, Need for acute hemodialysis Patient Disposition: Admitted As Inpatient Discharge Instructions Interventions: ED Discharge Assessment Last Done: 09/26/20 15:04
[2020-09-26] MEDS ORDERED: POLYETHYLENE (MIRALAX) 17 GM PACK PO PRN (18:00)
[2020-09-26] MEDS ORDERED: ACETAMINOPHEN 325 MG TAB PO PRN (18:00)
[2020-09-26] MEDS ORDERED: GABAPENTIN 800 MG TAB PO SCH (18:00)
[2020-09-26] MEDS ORDERED: LORazepam 0.5 MG TAB PO PRN (18:00)
[2020-09-26] MEDS ORDERED: hydrOXYzine HCl 25 MG TAB PO PRN (18:00)
[2020-09-26] MEDS ORDERED: ONDANSETRON INJ 2 MG/ML 2 ML VIAL IV PRN (18:00)
[2020-09-26] MEDS ORDERED: CALCIUM ACETATE 667 MG CAP/TAB PO PRN (18:07)
[2020-09-26 19:42] LABS: Hepatitis B Surface Ab Quant 174.65 mIU/mL (>or=10mIU/mL Immune); Hepatitis B Surface Antibody Immune
[2020-09-26] MEDS: ALBUTEROL HFA 8 GM INHALER INH SCH (19:50)
[2020-09-26 19:53] LABS: Hepatitis B Surface Antigen Neg (Neg)
[2020-09-26] MEDS: carvediloL 3.125 MG TAB PO SCH (20:06)
[2020-09-26] MEDS: CALCIUM ACETATE 667 MG CAP/TAB PO SCH (20:06)
[2020-09-26] MEDS ORDERED: traZODone HCL 50 MG TAB PO SCH (21:00)
[2020-09-26] MEDS ORDERED: amLODIPine BESYLATE 5 MG TAB PO SCH (21:00)
[2020-09-27] MEDS: ALBUTEROL HFA 8 GM INHALER INH SCH (07:33)
[2020-09-27] MEDS: GABAPENTIN 400 MG CAP PO SCH ×2 (08:58→12:28)
[2020-09-27] MEDS: carvediloL 3.125 MG TAB PO SCH (08:58)
[2020-09-27] MEDS: CALCIUM ACETATE 667 MG CAP/TAB PO SCH ×2 (08:59→12:28)
[2020-09-27] MEDS ORDERED: NEPHROCAPS PO SCH (09:00)
[2020-09-27] MEDS ORDERED: SERTRALINE HCL 50 MG TABLET PO SCH (09:00)
[2020-09-27] MEDS ORDERED: ALBUTEROL HFA 8 GM INHALER INH PRN (10:24)
--- NOTE | 2020-09-27 12:12 | Hospitalist Progress Note ---
Date of Service September 27, 2020 Assessment & Plan (1) Complication, dialysis catheter clot or failure: (2) Need for acute hemodialysis: (3) ESRD (end stage renal disease) on dialysis: (4) Depression: per admitting AMY- Jackie Jaramillo: This is a 34yo F with a PMH of ESRD on dialysis with numerous access issues, type 2 diabetes, hypertension, mood disorder, tobacco use and other medical problems listed below who presents from [facility] with dialysis access malfunction. Patient with ongoing dialysis access issues. Recently, had left upper arm AV graft placed by Dr. Claudio on 08/05/2020 but then required a left IJ TDC to be placed. The new catheter has not been functioning well and patient has been undergoing partial dialysis Plans for a left arm fistula/[id number]-[id number] and possible TDC removal/replacement on 09/29/2020 at [facility] Given alteplase by dialysis nurse with improved function of line - admitted for inpatient dialysis Discussed with nephrology I&Os, renal diet Continue phoslo, auryxia, sensipar 09/27/20 stable overall no symptoms discussed with Nephrology Service - Dr. Wilson cleared for d/c today HD tomorrow [facility] appointment on 09/29/20 for further evaluation of AV fistula Hypertension Continue amlodipine, Coreg, Losartan Depression Continue zoloft and trazodone DVT Ppx: SCDs for now Code status: FULL PCP: Luis Carlos Dispo: d/c home today ff up with Nephro as above Admission and Anticipated Discharge Date Admission Date: September 26, 2020 Subjective ff up for ESRD seen resting in bed, talking to her niece via Videocall in good spirits states she feels good overall today denies headache, dizziness, chest pain, dyspnea, abdominal pain, nausea, fever/chills no arm pain no other symptoms states she is ready for discharge today Review of Systems Review of Systems: All systems reviewed & are unremarkable except as noted in Subjective Physical Exam Physical Exam: General- oriented x 3, not in distress, speaks in sentences with no effort or accessory muscle use Eyes- anicteric Neck- no JVD Lungs- clear breath sounds bilaterally, no rales/wheezes Heart- normal rate, regular rhythm; no murmurs Abdomen- normal bowel sounds, nondistended, soft, nontender Extremities- no pretibial edema, no calf tenderness left arm: fistula in place, no edema/erythema/tenderness Neuro- alert, oriented x 3; no gross focal neurologic deficits Skin- warm & dry Results & Data Results & Data ([facility]) Vital Signs (Past 12 Hours) Vital Signs Temp Pulse Pulse Resp BP Pulse Ox 09/27/20 08:03 36.8 C 88 18 138/71 96 09/27/20 07:34 75 16 97 09/27/20 07:00 69 09/27/20 03:57 36.7 C 75 17 104/70 98 Laboratory Results Laboratory Results - last 24 hr 09/26/20 09/26/20 09/26/20 13:57 13:57 18:37 WBC 6.06 RBC 2.99 L Hgb 9.6 L Hct 29.1 L MCV 97.3 MCH 32.1 MCHC 33.0 RDW Std Deviation 57.3 H RDW Coeff of Laith 16.4 H Plt Count 166 MPV 9.8 Immature Gran % (Auto) 0.2 Neut % (Auto) 71.1 Lymph % (Auto) 20.6 [place] % (Auto) 5.3 Eos % (Auto) 2.5 Baso % (Auto) 0.3 Neut # (Auto) 4.31 Lymph # (Auto) 1.25 [place] # (Auto) 0.32 Eos # (Auto) 0.15 Baso # (Auto) 0.02 Immature Gran # (Auto) 0.01 Sodium 133 L Potassium 4.5 Chloride 96 L Carbon Dioxide 23 Anion Gap 14.0 H BUN 50 H Creatinine 10.60 H* Est Cr Clr Drug Dosing 9.0 Est GFR ( Amer) 4.9 Est GFR (Non-Af Amer) 4.2 BUN/Creatinine Ratio 4.7 L Glucose 109 H POC Glucose Calcium 9.1 Total Bilirubin 0.3 AST 17 ALT 38 Alkaline Phosphatase 89 Total Protein 7.1 Albumin 3.1 L Globulin 4.0 Albumin/Globulin Ratio 0.8 L COVID-19 Eval Order Hep Bs Antigen Neg Hep Bs Antibody Immune Hep Bs Antibody, Quant 174.65 SARS-CoV-2, RNA, NAAT 09/26/20 09/26/20 09/27/20 19:35 19:35 07:32 WBC RBC Hgb Hct MCV MCH MCHC RDW Std Deviation RDW Coeff of Laith Plt Count MPV Immature Gran % (Auto) Neut % (Auto) Lymph % (Auto) [place] % (Auto) Eos % (Auto) Baso % (Auto) Neut # (Auto) Lymph # (Auto) [place] # (Auto) Eos # (Auto) Baso # (Auto) Immature Gran # (Auto) Sodium Potassium Chloride Carbon Dioxide Anion Gap BUN Creatinine Est Cr Clr Drug Dosing Est GFR ( Amer) Est GFR (Non-Af Amer) BUN/Creatinine Ratio Glucose POC Glucose 140 H Calcium Total Bilirubin AST ALT Alkaline Phosphatase Total Protein Albumin Globulin Albumin/Globulin Ratio COVID-19 Eval Order Covid19 IDNow at[facility] Hep Bs Antigen Hep Bs Antibody Hep Bs Antibody, Quant SARS-CoV-2, RNA, NAAT NEGATIVE (1) Depression Depression Type: unspecified Qualified Code(s): F32.9 - Major depressive disorder, single episode, unspecified
--- NOTE | 2020-09-27 12:23 | Discharge Summary ---
Date of Service September 27, 2020 Admission HPI Per Admitting Provider This is a 34yo F with a PMH of ESRD on dialysis with numerous access issues, type 2 diabetes, hypertension, mood disorder, tobacco use and other medical problems listed below who presents from [facility] with dialysis access malfunction. Patient with ongoing dialysis access issues. Recently, had left upper arm AV graft placed by Dr. Claudio on 08/05/2020 but then required a left IJ TDC to be placed. The new catheter has not been functioning well and the graft is still not able to support dialysis. Has also had significant edema in the left arm since graft placement, which is thought to be contributing to poor functioning of TDC and AV graft. Is transitioning to [facility] in [place] for vascular care with plans for a left arm fistula/[id number]-g-ksmq and possible TDC removal/replacement on 09/29/2020. Was at [facility] dialysis this morning and was found to have multiple clots in left upper arm AV graft access. Attempted to access catheter but did not work. Was sent to [facility] for further assessment of access malfunction. Was given alteplase by dialysis nurse and is now requiring admission for inpatient dialysis. Denies any new symptoms. No fever, chills, headache, lightheadedness, chest pain, shortness of breath, abdominal pain, diarrhea or constipation. Does not make urine. Denies any medication changes. Swelling in left upper extremity has continued to improve with some minimal swelling left and forearm. Admission Exam Per Admitting Provider General Appearance: WD/WN, vitals as above, NAD, sitting up in bed, pleasant, conversing easily Head: normocephalic, atraumatic Eyes: normal inspection, PERRL, conjunctivae normal, anicteric sclerae ENT: external ear and nose normal, oropharynx normal Neck: normal visual inspection, trachea midline, no thyromegaly. L IJ catheter in use during dialysis Respiratory: normal respiratory effort, lungs clear to auscultation, no wheeze, rales, rhonchi. No accessory muscle use Cardiovascular: regular rate, rhythm, no murmur, normal peripheral pulses, no BLE edema. Vessels: no JVD Chest: normal inspection of chest Abdomen/GI: normal bowel sounds, soft, nontender, no hepatosplenomegaly Extremities/Musculoskeletal: no cyanosis or clubbing, extremities motor strength 5/5. LUE with AV graft and mild surrounding edema to mid forearm Neurologic: PERRL, EOMI, accommodation nl, no face palsy, no dysarthria, CN's II-XI intact bilaterally and moves all extremities Psychiatric: A+Ox3, euthymic affect Skin: no rashes, normal color, warm/dry Principal Diagnosis END STAGE RENAL DISEASE ON HEMODIALYSIS DIALYSIS CATHETER CLOT Discharge Exam General- oriented x 3, not in distress, speaks in sentences with no effort or accessory muscle use Eyes- anicteric Neck- no JVD Lungs- clear breath sounds bilaterally, no rales/wheezes Heart- normal rate, regular rhythm; no murmurs Abdomen- normal bowel sounds, nondistended, soft, nontender Extremities- no pretibial edema, no calf tenderness left arm: fistula in place, no edema/erythema/tenderness Neuro- alert, oriented x 3; no gross focal neurologic deficits Skin- warm & dry Discharge Data Allergies Allergy/AdvReac Type Severity Reaction Status Date / Time cefaclor Allergy Intermediate Rash Verified 09/26/20 08:56 amoxicillin AdvReac Mild VOMITING Verified 09/26/20 08:56 clavulanic acid AdvReac Mild VOMITING Verified 09/26/20 08:56 Consultations 09/26/20 13:31 ED Decision to Admit Stat 09/26/20 13:58 Consult Nephrology Routine Hospital Course (1) Complication, dialysis catheter clot or failure: (2) Need for acute hemodialysis: (3) ESRD (end stage renal disease) on dialysis: (4) Depression: per admitting CASTRO Jaramillo: This is a 34yo F with a PMH of ESRD on dialysis with numerous access issues, type 2 diabetes, hypertension, mood disorder, tobacco use and other medical problems listed below who presents from [facility] with dialysis access malfunction. Patient with ongoing dialysis access issues. Recently, had left upper arm AV graft placed by Dr. Claudio on 08/05/2020 but then required a left IJ TDC to be placed. The new catheter has not been functioning well and patient has been undergoing partial dialysis Plans for a left arm fistula/[id number]-h-aazd and possible TDC removal/replacement on 09/29/2020 at [facility] Given alteplase by dialysis nurse with improved function of line - admitted for inpatient dialysis Discussed with nephrology I&Os, renal diet Continue phoslo, auryxia, sensipar 09/27/20 stable overall no symptoms discussed with Nephrology Service - Dr. Wilson cleared for d/c today HD tomorrow [facility] appointment on 09/29/20 for further evaluation of AV fistula Hypertension Continue amlodipine, Coreg, Losartan Depression Continue zoloft and trazodone DVT Ppx: SCDs for now Code status: FULL PCP: Luis Carlos Dispo: d/c home today ff up with Nephro as above Total Time Total Time Spent Total Time Spent (In Minutes): 35 MINUTES Discharge Plan Discharge Items Patient Disposition: Home - Self-Care Reason For Visit: DIALYSIS Discharge Diagnosis: End Stage Renal Disease on Hemodialysis Activity: Resume your previous activity Non-emergency contact: Primary Care Provider and Drug Inspector Call non-emergency contact if: you have any medication questions, your symptoms worsen, your pain is not controlled, your pain is worsening, your pain is unusual for you, your pain is concerning for you, you have a fever, your wound has increased redness, your wound has increased drainage and your wound pain has increased Follow-up/Referrals: Adolph Aldridge MD [Primary Care Provider] - Diet: Carb Consistent or DM2, Dialysis Renal and Heart Healthy Addtl Attending Provider Instructions: RESUME YOUR USUAL MEDICATIONS. HEMODIALYSIS SCHEDULED TOMORROW. FOLLOW UP WITH [facility] ON 09/29/20. Pending Studies at Discharge: No Stand-Alone Forms: My Match, Smoking Cessation Medications and DC Order Prescriptions: Continued calcium acetate(phosphat bind) 667 mg capsule 667 mg PO UD RF: 0 sertraline 100 mg tablet 150 mg PO QAM RF: 0 gabapentin [Neurontin] 400 mg Capsule See Rx Instructions .ROUTE .COMPLEX RF: 0 trazodone 50 mg tablet 150 mg PO HS RF: 0 Auryxia 210 mg iron tablet 210 mg PO UD RF: 0 carvedilol 3.125 mg tablet 3.125 mg PO BID RF: 0 cinacalcet [Sensipar] 30 mg tablet 60 mg PO PM RF: 0 hydroxyzine HCl 25 mg tablet 25 mg PO Q6 PRN (Reason: Anxiety) RF: 0 albuterol sulfate 90 mcg/actuation HFA aerosol inhaler 2 puff INHALATION QID RF: 0 lorazepam 0.5 mg tablet 0.5 mg PO Q8 PRN (Reason: Panic Attack(S)) RF: 0 amlodipine 10 mg Tablet 10 mg PO HS RF: 0 Renal Vitamin 0.8 mg Tablet 1 tab PO DAILY RF: 0 Discharge Orders: Discharge Order (Routine); Ordered 09/27/20 Ordered By: Edmar Davis Admission Data Admit Date/Time: 09/26/20 13:58 Attending Provider: Edmar Davis Admit Provider: Edmar Davis Primary Care Provider: Adolph Aldridge Other Providers: Jameel Wilson ; Edmar Davis
--- NOTE | 2020-09-27 13:44 | Nephrology Consultation ---
Date of Consultation September 27, 2020 History of Present Illness Allergies Allergy/AdvReac Type Severity Reaction Status Date / Time cefaclor Allergy Intermediate Rash Verified 09/26/20 08:56 amoxicillin AdvReac Mild VOMITING Verified 09/26/20 08:56 clavulanic acid AdvReac Mild VOMITING Verified 09/26/20 08:56 Home Medications Medication Instructions Recorded Confirmed Type gabapentin [Neurontin] See Rx Instructions .ROUTE .COMPLEX 01/24/19 09/26/20 History Auryxia 210 mg PO UD 10/17/19 09/26/20 History trazodone 150 mg PO HS 10/17/19 09/26/20 History carvedilol 3.125 mg PO BID 12/21/19 09/26/20 History cinacalcet [Sensipar] 60 mg PO PM 12/21/19 09/26/20 History hydroxyzine HCl 25 mg PO Q6 PRN 04/21/20 09/26/20 History calcium acetate(phosphat bind) 667 mg PO UD 06/22/20 09/26/20 History albuterol sulfate 2 puff INHALATION QID 08/01/20 09/26/20 History lorazepam 0.5 mg PO Q8 PRN 08/01/20 09/26/20 History sertraline 150 mg PO QAM 08/02/20 09/26/20 History Renal Vitamin 1 tab PO DAILY 08/10/20 09/26/20 History amlodipine 10 mg PO HS 08/10/20 09/26/20 History Patient History Medical History Anemia Anxiety and depression Asthma "BEEN A WHILE" SINCE USING LAST RESCUE INHALER AVF (arteriovenous fistula) Bipolar disorder CKD (chronic kidney disease) stage V requiring chronic dialysis Dialysis patient SATURDAY/SAT/SATURDAY AT [facility] DM2 (diabetes mellitus, type 2) CONTROLLED WITH DIET AND EXERCISE Fistula LEFT ARM FSGS (focal segmental glomerulosclerosis) DX INITIALLY 2012 (CAUSING ESRD 2012) GERD (gastroesophageal reflux disease) HTN (hypertension) Migraine Peripheral neuropathy Prolonged QT interval Restless leg syndrome Surgical History H/O eye surgery LASER SURGERY LEFT H/O hernia repair ABDOMINAL WALL H/O knee surgery LEFT KNEE X 2 H/O tubal ligation H/O: X 2 History of cardiac cath 2017 NO STENTS History of cholecystectomy History of colonoscopy History of tooth extraction three TOOTH Kidney transplant recipient 2014 AT [facility] Family History Grandmother Hx of CABG Mother Diabetes Father Crohn's disease Grandfather (Maternal) Diabetes Uncle Diabetes Social History Smoking Status: Current every day smoker Tobacco Type: Cigarettes Cigarettes Per Day: 20; Second Hand Exposure: No; Hx Alcohol Use: Yes (rare) Alcohol type: hard liquor Alcohol Intake Frequency Comment: q3 months Hx Substance Use: No Preferred Language: [place] Communication Ability: Effective Board Member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 Beliefs That Will Affect Care: None marital status: Current Living Situation: Significant Other Current Living Situation Comment: with friend How many Children do You have: 2 Other Information That Helps Us Care for You: No Feels Safe at Home: Yes Safety Concerns: Feels Safe At This Time Assistive Devices: None Results & Data ([facility]) Vital Signs (Past 12 Hours) Vital Signs Temp Pulse Pulse Resp BP Pulse Ox 09/27/20 12:31 36.5 C 68 18 142/65 H 96 09/27/20 12:11 36.5 C 68 18 142/65 H 96 09/27/20 08:03 36.8 C 88 18 138/71 96 09/27/20 07:34 75 16 97 09/27/20 07:00 69 09/27/20 03:57 36.7 C 75 17 104/70 98
--- NOTE | 2020-09-27 14:43 | Consultation Report ---
DATE OF CONSULTATION: 09/27/2020 NEPHROLOGY CONSULTATION NOTE REASON FOR CONSULT: Dialysis patient admitted with dialysis catheter failure. HISTORY OF PRESENT ILLNESS: The patient is a 34-year-old female with ESRD, on chronic hemodialysis [id number]. Yesterday at outpatient dialysis, her catheter did not work and was sent over to the hospital. Inpatient dialysis nurse put some TPA and did some deep flushing, after which catheter worked and she had dialysis without problem yesterday. At this time, she feels pretty good and denies any complaints and wants to go home. PAST MEDICAL HISTORY AND PAST SURGICAL HISTORY: As detailed in H and P. ALLERGIES AND MEDICATIONS: Reviewed in detail. REVIEW OF SYSTEMS: She denied having any symptoms at this time. PHYSICAL EXAMINATION: VITAL SIGNS: Blood pressure 142/65, pulse rate 68, temperature 36.5 degrees Celsius, 96% on room air. HEENT: Mucous membranes moist. NECK: Supple. No jugular venous distention. CHEST: Bilaterally clear to auscultation. CARDIOVASCULAR: S1, S2 regular. ABDOMEN: Soft, nontender, obese. EXTREMITIES: Show no edema. She has AV fistula in her left upper arm as well as dialysis catheter on the left side. LABORATORY TEST: Was reviewed in detail and is as expected for a dialysis patient. ASSESSMENT AND PLAN: A 34-year-old female with end-stage renal disease, on chronic hemodialysis [id number], admitted overnight for catheter failure, which since then has worked and she is getting discharged. She will get dialysis as an outpatient tomorrow through her dialysis catheter. She is also scheduled to see her vascular surgeon in 2 days at [facility] for further plan regarding her maturing AV fistula. At this point, she does not have any major fluid or electrolyte imbalance and she is stable for discharge.
== END 2020-09-27 13:45 | disposition home or self-care (01) | DRG 314 ==
LOC: ED 08:15 → 2S 13:58

== ENCOUNTER 2020-12-19 07:48 | Observation (INO) ==
[2020-12-19] MEDS ORDERED: NALOXONE HCL 0.4 MG/1 ML VIAL/CARP IV STA (08:00)
--- NOTE | 2020-12-19 08:30 | XRay Report ---
XR chest 1V portable CLINICAL HISTORY: weakness COMPARISON STUDY: Chest radiograph October 14, 2020. FINDINGS: A vascular stent projects over the mediastinum. Lung volumes are diminished. This is unchan ged. There is no pneumothorax. There may be trace bilateral pleural effusions. Mild interstitial thic kening is present. No consolidation is identified. Cardiomegaly is unchanged. IMPRESSION: 1. Pulmonary vascular congestion with possible mild pulmonary edema. 2. Cardiomegaly. 3. Possible trace bilateral pleural effusions. ACT 112: Negative or not required by law. Electronically signed by: Sebastian Mcclain M.D. 12/19/2020 8:29 AM
[2020-12-19 09:01] LABS: Basophils # (auto) 0.01 K/uL (0-0.2); Basophils % (auto) 0.2 %; Eosinophils # (auto) 0.18 K/uL (0-0.5); Eosinophils % (auto) 2.8 %; Hematocrit (blood only) 35.5 % (37-47); Hemoglobin 11.5 g/dL (12.0-16.0); Immature Granulocytes # (auto) 0.02 K/uL (0.00-0.02); Immature Granulocytes % (auto) 0.3 %; Lymphocytes # (auto) 0.62 K/uL (1.2-3.4); Lymphocytes % (auto) 9.8 %; Mean Corpuscular Hemoglobin 33.2 pg (25-34); Mean Corpuscular Hgb Conc 32.4 g/dL (32-36); Mean Corpuscular Volume 102.6 fL (80-100); Monocytes % (auto) 3.2 %; Neutrophils # (auto) 5.31 K/uL (1.4-6.5); Neutrophils % (auto) 83.7 %; Platelet Count 168 K/uL (130-400); RDW Coefficient of Variation 15.8 % (11.5-14.5); RDW Standard Deviation 58.9 fL (36.4-46.3); Red Blood Count 3.46 M/uL (4.2-5.4); White Blood Count 6.34 K/uL (4.8-10.8)
[2020-12-19 09:36] LABS: Albumin Globulin Ratio 0.8 (0.9-2); BUN Creatinine Ratio 4.6 (10-20); Bilirubin,Total 0.3 mg/dl (0.2-1); Est GFR (Non-African American) 8.6; Globulin 3.9 gm/dl (2.5-4.0); Thyroid Stimulating Hormone 3.1 uIu/ml (0.300-4.500); Total Protein 6.9 gm/dl (6.4-8.2)
--- NOTE | 2020-12-19 09:39 | CT Scan Report ---
CT head/brain wo con CLINICAL HISTORY: Acute change in mental status COMPARISON STUDY: 12/21/2019 TECHNIQUE: Axial CT of the brain is performed from the vertex to the skull base. IV contrast was not administered for this examination. A dose lowering technique was utilized adhering to the principles of ALARA. CT DOSE: 537.48 mGy.cm FINDINGS: No intra or extra-axial mass lesions are visualized. There is no CT evidence of acute cortical infarc tion. There is no evidence of midline shift. There is no acute hemorrhage. No calvarial fractures ar e visualized. There is no evidence of pathologic ventricular dilatation. There is no evidence of acute sinusitis IMPRESSION: No acute intracranial findings ACT 112: Negative or not required by law. Electronically signed by: Win Foster M.D. 12/19/2020 9:37 AM
[2020-12-19 10:06] LABS: Potassium 4.7 mmol/L (3.5-5.1)
--- NOTE | 2020-12-19 10:09 | History & Physical Report ---
Date of Service December 19, 2020 Assessment & Plan (1) ESRD (end stage renal disease) on dialysis: - Admit to med surg with tele for Observation -Appears that the patient is lethargic secondary to Ativan use., Urine drug screen not obtainable as she does not make urine. Will check blood drug screen as send out. Received narcan 0.4 mg IV in the ED without significant improvement in lethargy. -Pt AAO, no antidote needed at this time. -Nephrology consulted for HD needs, normal schedule is MWF -Had pulled off 1 L of fluid at [facility], then became slightly hypotensive so given 1 L NSS at dialysis back. - Cr. 5.85, BUN 27, K+ 4.7, monitor am labs (2) Anemia due to end stage renal disease: - Hx of such, monitor with am labs. Hgb 11.5/HCT 35.5 (3) Tobacco abuse: -counseling on cessation encouraged, smokes 1/2 ppd. (4) HTN (hypertension): - Monitor, cont amlodipine 10 mg HS, carvedilol 3.125 mg BID (5) Bipolar disorder: - mood disorder with more depressive symptoms. Anxiety and panic attack hx. Has trazodone, sertraline, hydroxyzine and ativan as per well logging captain meds. - Hold benzo for now - Urine drug screen not obtainable as pt does not make urine, obtain blood drug screen (6) DVT prophylaxis: - teds, scds CODE: Full code Dispo: From home, likely to remain in the hospital x 1d on Observation History of Present Illness Primary Care Provider: Adolph Aldridge MD This is a 34-year-old female with PMHx of ESRD on dialysis, history of venous access issues, DM type II, HTN, mood disorder, panic attack, and depression. Pt reported to have taken Ativan 0.5 mg PO prior to [place] pickup for dialysis treatment, along with hydroxyzine 50 mg, sertraline 150 mg QAM. She also admits to taking her trazodone last night, as well as smoked marijuana to help her sleep last night. She denies any alcohol use or other illicit drug use. Reports MWF are her routinely scheduled dialysis days and is driven there by the [facility]. She lives at home with her fiancee. Pt denies any acute symptoms and is able to answer complete ROS. During dialysis, staff had 1 L volume removed,however she became acutely hypotensive, they administered a 1 L fluid bolus and then pt became slightly hypertensive. Currently in the ER, her vitals are stable and normotensive. In the ER pt was given Narcan 0.4 mg x 1 without any improvement to slurred speech. The patient does not make any urine, therefore urine drug screen via urine cannot be obtained. Urine drug screen via blood can be done, however it is a send out from our facility and will take several days to return. Allergies Allergy/AdvReac Type Severity Reaction Status Date / Time cefaclor Allergy Intermediate Rash Verified 12/19/20 08:35 amoxicillin AdvReac Mild VOMITING Verified 12/19/20 08:35 clavulanic acid AdvReac Mild VOMITING Verified 12/19/20 08:35 Home Medications Medication Instructions Recorded Confirmed Type gabapentin [Neurontin] See Rx Instructions .ROUTE .COMPLEX 01/24/19 12/19/20 History Auryxia 210 mg PO UD 10/17/19 12/19/20 History trazodone 150 mg PO HS 10/17/19 12/19/20 History carvedilol 3.125 mg PO BID 12/21/19 12/19/20 History cinacalcet [Sensipar] 60 mg PO PM 12/21/19 12/19/20 History hydroxyzine HCl 25 mg PO Q6 PRN 04/21/20 12/19/20 History calcium acetate(phosphat bind) 667 mg PO UD 06/22/20 12/19/20 History albuterol sulfate 2 puff INHALATION QID 08/01/20 12/19/20 History lorazepam 0.5 mg PO Q8 PRN 08/01/20 12/19/20 History sertraline 150 mg PO QAM 08/02/20 12/19/20 History Renal Vitamin 1 tab PO DAILY 08/10/20 12/19/20 History amlodipine 10 mg PO HS 08/10/20 12/19/20 History Past Med/Surg History Medical History Anemia Anxiety and depression Asthma "BEEN A WHILE" SINCE USING LAST RESCUE INHALER AVF (arteriovenous fistula) Bipolar disorder CKD (chronic kidney disease) stage V requiring chronic dialysis Dialysis patient SATURDAY/SAT/SATURDAY AT [facility] DM2 (diabetes mellitus, type 2) CONTROLLED WITH DIET AND EXERCISE Fistula LEFT ARM FSGS (focal segmental glomerulosclerosis) DX INITIALLY 2012 (CAUSING ESRD 2012) GERD (gastroesophageal reflux disease) HTN (hypertension) Migraine Peripheral neuropathy Prolonged QT interval Restless leg syndrome Surgical History H/O eye surgery LASER SURGERY LEFT H/O hernia repair ABDOMINAL WALL H/O knee surgery LEFT KNEE X 2 H/O tubal ligation H/O: X 2 History of cardiac cath 2016 NO STENTS History of cholecystectomy History of colonoscopy History of tooth extraction three TOOTH Kidney transplant recipient 2013 AT [facility] Family History Grandmother Hx of CABG Mother Diabetes Father Crohn's disease Grandfather (Maternal) Diabetes Uncle Diabetes Social History Smoking Status: Current every day smoker Tobacco Type: Cigarettes Cigarettes Per Day: 20; Second Hand Exposure: No; Hx Alcohol Use: Yes (rare) Alcohol type: hard liquor Alcohol Intake Frequency Comment: q3 months Hx Substance Use: No Preferred Language: Northern Irish Communication Ability: Effective Psychologist Engineering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 Beliefs That Will Affect Care: None marital status: Current Living Situation: Significant Other Current Living Situation Comment: with friend How many Children do You have: 2 Feels Safe at Home: Yes Assistive Devices: None Review of Systems Review of Systems: Constitutional: No fever, sweats or chills Eyes: No diplopia, no worsening or blurred vision ENT: normal hearing, no trouble swallowing Respiratory: No cough, sputum, dyspnea at rest or on exertion Cardiovascular: No chest pain, tightness or palpitations Abdomen: No pain, nausea, vomiting, diarrhea or constipation Musculoskeletal: No joint pain, calf pain, swelling Neurologic: No weakness, numbness/tingling, or balance problems Psychiatric: + anxiety and depression, takes medication Skin: No rash or itch Physical Exam Physical Exam: General: awake, alert, no apparent distress, + lethargic, slurs her speech slightly during exam, obese. Head: Normocephalic, atraumatic ENT: PERRL, EOMI, no pharyngeal exudate, +mucous membranes dry Chest: Clear to auscultation, on room air, no adventitious breath sounds Cardiac: Regular rate and rhythm, no murmur, no JVD, normal peripheral pulses, good capillary refill Abdominal: NABS x 4 quadrants, soft, obese, nondistended, nontender to palpation, no rebound or guarding Extremities: Normal inspection, no peripheral edema or erythema, calfs nontender to palpation. Wearing 3 pairs of socks. Psych: Normal mood and affect Neuro: AAO x 3, unable to correctly name the year, but answers all other questions appropriately. Strength intact bilaterally and rated 5/5, no motor deficits, speech is slurred slightly, no peripheral sensory deficits Results & Data Results & Data ([facility]) Vital Signs (Past 12 Hours) Vital Signs Temp Pulse Resp BP Pulse Ox 12/19/20 09:08 72 15 129/96 95 12/19/20 08:00 76 11 L 134/107 H 96 12/19/20 07:59 98 12/19/20 07:50 36.8 C 82 16 150/107 H 98 Diagnostic Findings Chest X-Ray 12/19/20 07:59 XR chest 1V portable CLINICAL HISTORY: weakness COMPARISON STUDY: Chest radiograph October 14, 2020. FINDINGS: A vascular stent projects over the mediastinum. Lung volumes are diminished. This is unchanged. There is no pneumothorax. There may be trace bilateral pleural effusions. Mild interstitial thickening is present. No consolidation is identified. Cardiomegaly is unchanged. IMPRESSION: 1. Pulmonary vascular congestion with possible mild pulmonary edema. 2. Cardiomegaly. 3. Possible trace bilateral pleural effusions. ACT 112: Negative or not required by law. Electronically signed by: Sebastian Mcclain M.D. 12/19/2020 8:[address] 12/19/20 07:59 CT head/brain wo con CLINICAL HISTORY: Acute change in mental status COMPARISON STUDY: 12/21/2019 TECHNIQUE: Axial CT of the brain is performed from the vertex to the skull base. IV contrast was not administered for this examination. A dose lowering technique was utilized adhering to the principles of ALARA. CT DOSE: 537.48 mGy.cm FINDINGS: No intra or extra-axial mass lesions are visualized. There is no CT evidence of acute cortical infarction. There is no evidence of midline shift. There is no acute hemorrhage. No calvarial fractures are visualized. There is no evidence of pathologic ventricular dilatation. There is no evidence of acute sinusitis IMPRESSION: No acute intracranial findings ACT 112: Negative or not required by law. Electronically signed by: Win Foster M.D. 12/19/2020 9:37 AM ECG Additional Comments: 19-DEC-2020 07:56:03 [facility]-EDSTAT ROUTINE RETRIEVAL Normal sinus rhythm Possible Lateral infarct , age undetermined Abnormal ECG When compared with ECG of 14-OCT-2020 06:51, No significant change was found 25mm/s 10mm/mV 150Hz 9.0.9 12SL 241 ELIZABETH: 10 Referred by: ED Unconfirmed Vent. rate 80 BPM MO interval 166 ms QRS duration 96 ms QT/QTc 424/489 ms Code Status & VTE Plan Code Status Full -discussed with the patient at bedside Supervising Physician Co-Signing Physician Notes Attending addendum: The patient was seen and examined in emergency room She is 35-year-old on chronic hemodialysis with other medical conditions as mentioned in H&P was brought into the emergency room from dialysis center with decreasing response and hypotension Apparently she took her usual dose of Ativan 0.5 mg before the dialysis session today Complains to have weakness but denies any other significant symptoms during examination in the emergency room She is responding to usual conversation On examination Lying in bed without any acute distress Blood pressure was noted to be high in the emergency room at 175/108 Chest-decreased breath sounds at the bases with minimal crackles Heart-S1-S2, regular Abdomen-distended and soft with normal bowel sounds Extremities-trace to 1+ edema bilaterally Her admission labs, imaging studies noted Excessive drowsiness could be secondary to use of Ativan-we will check tox screen and blood Uncontrolled blood pressure Generalized weakness End-stage renal disease on hemodialysis Will need to be observed in the hospital and continue hemodialysis as per senior chemical process engineer Agree with assessment and plan as outlined above by VARUN Thibodeaux DR (1) HTN (hypertension) Hypertension type: unspecified Qualified Code(s): I10 - Essential (primary) hypertension
[2020-12-19 10:11] LABS: Magnesium 2.6 mg/dl (1.8-2.4)
--- NOTE | 2020-12-19 10:23 | Emergency Department Note ---
History of Present Illness General Chief complaint: Lethargic Time Seen by Provider: 12/19/20 07:51 Source: patient, EMS and RN notes reviewed Mode of arrival: EMS Limitations: no limitations History of Present Illness Provider complaint: Altered mental status, low blood pressure from dialysis Maximum Pain Intensity: 0 This patient is a 35-year-old female who presents to the emergency department by ambulance from her dialysis clinic. Patient was in the clinic today actively receiving her treatment, apparently had 1 L of fluid taken off. She seemed sleepy and began slurring her words. Nurses noted her blood pressure had dropped. They gave her 1 L of fluid back and transported her to the emergency department. Patient states she was "fine" prior to dialysis and was able to ambulate to the van from her house. She states she took Ativan for a panic attack at some point this morning she believes around 3 AM. She states she only took 1 tablet. She denies any other ingestions. She denies any fevers, chills, falls, head injuries, vomiting. Patient denies any pain at this time. Home Medications Medication Instructions Recorded Confirmed Type gabapentin [Neurontin] See Rx Instructions .ROUTE .COMPLEX 01/24/19 12/19/20 History Auryxia 210 mg PO UD 10/17/19 12/19/20 History trazodone 150 mg PO HS 10/17/19 12/19/20 History carvedilol 3.125 mg PO BID 12/21/19 12/19/20 History cinacalcet [Sensipar] 60 mg PO PM 12/21/19 12/19/20 History hydroxyzine HCl 25 mg PO Q6 PRN 04/21/20 12/19/20 History calcium acetate(phosphat bind) 667 mg PO UD 06/22/20 12/19/20 History albuterol sulfate 2 puff INHALATION QID 08/01/20 12/19/20 History lorazepam 0.5 mg PO Q8 PRN 08/01/20 12/19/20 History sertraline 150 mg PO QAM 08/02/20 12/19/20 History Renal Vitamin 1 tab PO DAILY 08/10/20 12/19/20 History amlodipine 10 mg PO HS 08/10/20 12/19/20 History Allergies Allergy/AdvReac Type Severity Reaction Status Date / Time cefaclor Allergy Intermediate Rash Verified 12/19/20 08:35 amoxicillin AdvReac Mild VOMITING Verified 12/19/20 08:35 clavulanic acid AdvReac Mild VOMITING Verified 12/19/20 08:35 Past Med/Surg History Medical History Anemia Anxiety and depression Asthma "BEEN A WHILE" SINCE USING LAST RESCUE INHALER AVF (arteriovenous fistula) Bipolar disorder CKD (chronic kidney disease) stage V requiring chronic dialysis Dialysis patient SATURDAY/SAT/SATURDAY AT [facility] DM2 (diabetes mellitus, type 2) CONTROLLED WITH DIET AND EXERCISE Fistula LEFT ARM FSGS (focal segmental glomerulosclerosis) DX INITIALLY 2012 (CAUSING ESRD 2012) GERD (gastroesophageal reflux disease) HTN (hypertension) Migraine Peripheral neuropathy Prolonged QT interval Restless leg syndrome Surgical History H/O eye surgery LASER SURGERY LEFT H/O hernia repair ABDOMINAL WALL H/O knee surgery LEFT KNEE X 2 H/O tubal ligation H/O: X 2 History of cardiac cath 2016 NO STENTS History of cholecystectomy History of colonoscopy History of tooth extraction three TOOTH Kidney transplant recipient 2013 AT [facility] Family History Grandmother Hx of CABG Mother Diabetes Father Crohn's disease Grandfather (Maternal) Diabetes Uncle Diabetes Social History Smoking Status: Current every day smoker Tobacco Type: Cigarettes Cigarettes Per Day: 20; Second Hand Exposure: No; Hx Alcohol Use: Yes (rare) Alcohol type: hard liquor Alcohol Intake Frequency Comment: q3 months Hx Substance Use: No Preferred Language: [place] Communication Ability: Effective Accounting Administrative Assistant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 Beliefs That Will Affect Care: None marital status: Current Living Situation: Significant Other Current Living Situation Comment: with friend How many Children do You have: 2 Feels Safe at Home: Yes Assistive Devices: None Review of Systems Unobtainable due to reduced consciousness (Lethargic) Physical Exam Vital Signs Vital Signs - 24 hr 12/19/20 07:50 12/19/20 07:59 12/19/20 08:00 Temperature 36.8 C Temperature Source Oral Pulse Rate 82 76 Pulse Rate from SpO2 Sensor 76 Pulse Rhythm Regular Pulse Strength Normal Respiratory Rate 16 11 L Respiratory Effort / Characteristics Non-Labored Spontaneous Respiratory Depth Normal Respiratory Pattern Regular Blood Pressure 150/107 H 134/107 H Blood Pressure Mean 121 116 Blood Pressure Position Lying Pulse Oximetry 98 98 96 Oxygen Delivery Method Room Air Room Air Sepsis Recent Fever Within 48 Hours No Sepsis New/Unexplained Change in Mental Status N/A Sepsis Action Taken by Nursing No Action Required 12/19/20 09:08 12/19/20 10:00 Temperature Temperature Source Pulse Rate 72 67 Pulse Rate from SpO2 Sensor 73 67 Pulse Rhythm Pulse Strength Respiratory Rate 15 Respiratory Effort / Characteristics Respiratory Depth Respiratory Pattern Blood Pressure 129/96 171/101 H Blood Pressure Mean 107 124 Blood Pressure Position Pulse Oximetry 95 96 Oxygen Delivery Method Sepsis Recent Fever Within 48 Hours Sepsis New/Unexplained Change in Mental Status Sepsis Action Taken by Nursing Vital signs reviewed. General: Chronically ill-appearing 35 yo female, in no significant distress. HEENT: No scleral icterus, PERRLA, neck supple. Atraumatic. Cardiovascular: Regular rate and rhythm, no extra sounds. Pulmonary: Clear to auscultation bilaterally, normal work of breathing. Abdomen: Soft, obese, nontender, nondistended, positive bowel sounds. Musculoskeletal: Atraumatic, no peripheral edema. Neurologic: Patient awake alert and oriented x 3 Skin: Warm, dry, no rash Course Administered Medications Albuterol (Albuterol Hfa 8 Gm Inhaler) 2 puffs INH QIDR [facility] Stop: 01/18/21 14:59 Last Admin: 12/20/20 07:18 Dose: 2 puffs Documented by: [id number] Admin: 12/19/20 20:19 Dose: 2 puffs Documented by: [id number] Admin: 12/19/20 18:13 Dose: Not Given Documented by: [id number] Amlodipine Besylate (Amlodipine Besylate 5 Mg Tab) 10 mg PO HS [facility] Stop: 01/18/21 20:59 Last Admin: 12/19/20 20:05 Dose: 10 mg Documented by: [id number] Calcium Acetate (Calcium Acetate 667 Mg Cap/Tab) 1,334 mg PO TIDM NIKKI Stop: 01/18/21 16:59 Last Admin: 12/19/20 18:28 Dose: 1,334 mg Documented by: [id number] Carvedilol (Carvedilol 3.125 Mg Tab) 3.125 mg PO BID NIKKI Stop: 01/18/21 20:59 Last Admin: 12/19/20 20:05 Dose: 3.125 mg Documented by: [id number] Cinacalcet (Cinacalcet Hcl 30 Mg Tab) 60 mg PO PM [facility] Stop: 01/18/21 20:59 Last Admin: 12/19/20 20:05 Dose: 60 mg Documented by: [id number] Gabapentin (Gabapentin 400 Mg Cap) 400 mg PO DAILY@0730,1230 [facility] Stop: 01/19/21 07:29 Last Admin: 12/20/20 06:30 Dose: 400 mg Documented by: [id number] Gabapentin (Gabapentin 400 Mg Cap) 800 mg PO DAILY@1800 [facility] Stop: 01/18/21 17:59 Last Admin: 12/19/20 18:27 Dose: 800 mg Documented by: [id number] Miscellaneous (Ferric Citrate - Order Awaiting Action) 1 ea N/A QS [facility] Stop: 01/18/21 15:59 Last Admin: 12/19/20 23:24 Dose: Not Given Documented by: [id number] Admin: 12/19/20 18:28 Dose: Not Given Documented by: [id number] Discontinued Medications Hydralazine HCl (Hydralazine Hcl 20 Mg/Ml Vial) 5 mg IV NOW ONE Stop: 12/19/20 11:03 Last Admin: 12/19/20 12:04 Dose: 5 mg Documented by: [id number] Naloxone HCl (Naloxone Hcl 0.4 Mg/1 Ml Vial/Carp) 0.4 mg IV NOW STA Stop: 12/19/20 08:01 Last Admin: 12/19/20 09:09 Dose: 0.4 mg Documented by: [id number] Medical Decision Making Differential Diagnosis Vital signs reviewed. General: Chronically ill appearing 35 yo female, in no significant distress. HEENT: No scleral icterus, PERRLA, neck supple. Atraumatic. Cardiovascular: Regular rate and rhythm, no extra sounds. Pulmonary: Clear to auscultation bilaterally, normal work of breathing. Abdomen: Soft, obese, nontender, nondistended, positive bowel sounds. Musculoskeletal: Atraumatic, no peripheral edema. Neurologic: Patient somnolent and oriented x 3 Skin: Warm, dry, no rash Medical Records Attestation: I reviewed the patient's medical records. Home Medications Current Medication List: was personally reviewed by me Laboratory Data Attestation: I reviewed the patient's lab results. Result diagrams: 12/19/20 08:49 12/19/20 09:45 Lab Results 12/19/20 12/19/20 12/19/20 Range/Units 08:49 08:49 09:14 WBC 6.34 (4.8-10.8) K/uL RBC 3.46 L (4.2-5.4) M/uL Hgb 11.5 L (12.0-16.0) g/dL Hct 35.5 L (37-47) % MCV 102.6 H (80-100) fL MCH 33.2 (25-34) pg MCHC 32.4 (32-36) g/dL RDW Std Deviation 58.9 H (36.4-46.3) fL RDW Coeff of Laith 15.8 H (11.5-14.5) % Plt Count 168 (130-400) K/uL MPV 10.0 (7.4-10.4) fL Immature Gran % (Auto) 0.3 % Neut % (Auto) 83.7 % Lymph % (Auto) 9.8 % Marin % (Auto) 3.2 % Eos % (Auto) 2.8 % Baso % (Auto) 0.2 % Neut # (Auto) 5.31 (1.4-6.5) K/uL Lymph # (Auto) 0.62 L (1.2-3.4) K/uL Marin # (Auto) 0.20 (0.11-0.59) K/uL Eos # (Auto) 0.18 (0-0.5) K/uL Baso # (Auto) 0.01 (0-0.2) K/uL Immature Gran # (Auto) 0.02 (0.00-0.02) K/uL Sodium 133 L (136-145) mmol/L Potassium (3.5-5.1) mmol/L Chloride 98 (98-107) mmol/L Carbon Dioxide 28 (21-32) mmol/L Anion Gap 7.0 (3-11) BUN 27 H (7-18) mg/dl Creatinine 5.85 H* (0.6-1.2) mg/dl Est Cr Clr Drug Dosing 17.0 ml/min Est GFR ( Amer) 10.0 Est GFR (Non-Af Amer) 8.6 BUN/Creatinine Ratio 4.6 L (10-20) Glucose 122 H (70-99) mg/dl Calcium 9.0 (8.5-10.1) mg/dl Magnesium (1.8-2.4) mg/dl Total Bilirubin 0.3 (0.2-1) mg/dl AST (15-37) U/L ALT 25 (12-78) U/L Alkaline Phosphatase 101 (45-117) U/L Total Protein 6.9 (6.4-8.2) gm/dl Albumin 3.0 L (3.4-5.0) gm/dl Globulin 3.9 (2.5-4.0) gm/dl Albumin/Globulin Ratio 0.8 L (0.9-2) TSH 3.100 (0.300-4.500) uIu/ml COVID-19 Eval Order CovFluRsv at [facility] SARS-CoV-2 (PCR) (Negative) Influenza Type A (PCR) (Neg) Influenza Type B (PCR) (Neg) RSV (RT-PCR) (Neg) 12/19/20 12/19/20 Range/Units 09:14 09:45 WBC (4.8-10.8) K/uL RBC (4.2-5.4) M/uL Hgb (12.0-16.0) g/dL Hct (37-47) % MCV (80-100) fL MCH (25-34) pg MCHC (32-36) g/dL RDW Std Deviation (36.4-46.3) fL RDW Coeff of Laith (11.5-14.5) % Plt Count (130-400) K/uL MPV (7.4-10.4) fL Immature Gran % (Auto) % Neut % (Auto) % Lymph % (Auto) % Marin % (Auto) % Eos % (Auto) % Baso % (Auto) % Neut # (Auto) (1.4-6.5) K/uL Lymph # (Auto) (1.2-3.4) K/uL Marin # (Auto) (0.11-0.59) K/uL Eos # (Auto) (0-0.5) K/uL Baso # (Auto) (0-0.2) K/uL Immature Gran # (Auto) (0.00-0.02) K/uL Sodium (136-145) mmol/L Potassium 4.7 (3.5-5.1) mmol/L Chloride (98-107) mmol/L Carbon Dioxide (21-32) mmol/L Anion Gap (3-11) BUN (7-18) mg/dl Creatinine (0.6-1.2) mg/dl Est Cr Clr Drug Dosing ml/min Est GFR ( Amer) Est GFR (Non-Af Amer) BUN/Creatinine Ratio (10-20) Glucose (70-99) mg/dl Calcium (8.5-10.1) mg/dl Magnesium 2.6 H (1.8-2.4) mg/dl Total Bilirubin (0.2-1) mg/dl AST 16 (15-37) U/L ALT (12-78) U/L Alkaline Phosphatase (45-117) U/L Total Protein (6.4-8.2) gm/dl Albumin (3.4-5.0) gm/dl Globulin (2.5-4.0) gm/dl Albumin/Globulin Ratio (0.9-2) TSH (0.300-4.500) uIu/ml COVID-19 Eval Order SARS-CoV-2 (PCR) NEGATIVE (Negative) Influenza Type A (PCR) Negative (Neg) Influenza Type B (PCR) Negative (Neg) RSV (RT-PCR) Negative (Neg) Imaging Data Radiologist's Impression: Chest X-Ray 12/19/20 07:59 XR chest 1V portable CLINICAL HISTORY: weakness COMPARISON STUDY: Chest radiograph October 14, 2020. FINDINGS: A vascular stent projects over the mediastinum. Lung volumes are diminished. This is unchanged. There is no pneumothorax. There may be trace bilateral pleural effusions. Mild interstitial thickening is present. No consolidation is identified. Cardiomegaly is unchanged. IMPRESSION: 1. Pulmonary vascular congestion with possible mild pulmonary edema. 2. Cardiomegaly. 3. Possible trace bilateral pleural effusions. ACT 112: Negative or not required by law. Electronically signed by: Sebastian Mcclain M.D. 12/19/2020 8:[address] 12/19/20 07:59 CT head/brain wo con CLINICAL HISTORY: Acute change in mental status COMPARISON STUDY: 12/21/2019 TECHNIQUE: Axial CT of the brain is performed from the vertex to the skull base. IV contrast was not administered for this examination. A dose lowering technique was utilized adhering to the principles of ALARA. CT DOSE: 537.48 mGy.cm FINDINGS: No intra or extra-axial mass lesions are visualized. There is no CT evidence of acute cortical infarction. There is no evidence of midline shift. There is no acute hemorrhage. No calvarial fractures are visualized. There is no evidence of pathologic ventricular dilatation. There is no evidence of acute sinusitis IMPRESSION: No acute intracranial findings ACT 112: Negative or not required by law. Electronically signed by: Win Foster M.D. 12/19/2020 9:37 AM ECG Data Attestation: I personally reviewed and interpreted this ECG as follows: Indication: + altered mental status Rate (beats per minute): 80 Rhythm: + normal sinus ECG Intervals/blocks: + Prolonged QT (489) ECG ST segments: no T-wave inversions (T wave flattening in the inferior and lateral leads) ECG Findings: + Q waves (Lateral); no PACs and no PVCs Blood Pressure Blood Pressure Findings: Normal blood pressure Blood Pressure Disposition: did not require urgent referral MDM Narrative This patient was evaluated and appeared to be in no significant distress. IV access was obtained and laboratory work was drawn. An order for cardiac mon itoring was placed and the patient is noted to be in a normal sinus rhythm at 72 bpm. Patient was initially somnolent but arousable and able to answer some questions with some slurred speech on my exam. She stated she was "fine" when the van arrived and she was able to walk out on her own. She believes she took the Ativan at approximately 3 AM and walked to the van around 4 AM. Patient seemed to be having some decline in her mental status during her stay. She did receive 0.4 mg of IV Narcan without any change. It seems the patient likely overdosed on benzodiazepines as she had admitted to taking this medication this morning and had an eye eye mask on, perhaps it was an attempt to sleep during her dialysis treatment. CT imaging of the head is negative for acute abnormality. Chest x-ray is significant for pulmonary vascular congestion. Nonetheless the patient will require hospitalization due to the decline in mental status until she clears and she did not receive her dialysis treatment. Hospitalist service was consulted for further management. Impression & Plan CKD (chronic kidney disease) stage V requiring chronic dialysis, AMS (altered mental status) Discharge Plan Visit Data Chief Complaint: Lethargic ED Provider: Asiya Sun Discharge Problem: CKD (chronic kidney disease) stage V requiring chronic dialysis, AMS (altered mental status) Patient Disposition: Admitted As Inpatient Discharge Instructions Interventions: ED Discharge Assessment Last Done: 12/19/20 13:50 Discharge Problem: AMS (altered mental status) Qualifiers: Altered mental status type: somnolence Qualified Code(s): R40.0 - Somnolence
[2020-12-19 10:43] LABS: Influenza A virus by PCR Negative (Neg); Influenza B virus by PCR Negative (Neg); RSV by PCR Negative (Neg); SARS CoV2 RNA(COVID-19) InHosp NEGATIVE (Negative)
[2020-12-19] MEDS ORDERED: hydrALAZINE HCL 20 MG/ML VIAL IV ONE (11:02)
[2020-12-19] MEDS ORDERED: hydrALAZINE HCL 20 MG/ML VIAL IV PRN ×2 (11:03→14:14)
[2020-12-19] MEDS ORDERED: hydrOXYzine HCl 25 MG TAB PO PRN (14:14)
[2020-12-19] MEDS ORDERED: ACETAMINOPHEN 325 MG TAB PO PRN (14:14)
[2020-12-19] MEDS ORDERED: CALCIUM ACETATE 667 MG CAP/TAB PO PRN (14:21)
--- NOTE | 2020-12-19 14:46 | Electrocardiogram Report ---
Test Reason : Blood Pressure : / mmHG Vent. Rate : 080 BPM Atrial Rate : 080 BPM P-R Int : 166 ms QRS Dur : 096 ms QT Int : 424 ms P-R-T Axes : 040 008 030 degrees QTc Int : 489 ms Normal sinus rhythm Poor R wave progression, consider anterior NV vs. lead placement vs. LVH Abnormal ECG When compared with ECG of 14-OCT-2020 06:51, No significant change was found Confirmed by Dash Tejada ([id number]) on 12/19/2020 2:46:31 PM Referred By: ED Confirmed By:Dash Tejada
[2020-12-19] MEDS ORDERED: GABAPENTIN 400 MG CAP PO SCH ×2 (18:00)
[2020-12-19] MEDS: ALBUTEROL HFA 8 GM INHALER INH SCH ×2 (18:13→20:19)
[2020-12-19] MEDS: CALCIUM ACETATE 667 MG CAP/TAB PO SCH (18:28)
[2020-12-19] MEDS: carvediloL 3.125 MG TAB PO SCH (20:05)
[2020-12-19] MEDS ORDERED: amLODIPine BESYLATE 5 MG TAB PO SCH (21:00)
[2020-12-19] MEDS ORDERED: CINACALCET HCL 30 MG TAB PO SCH (21:00)
[2020-12-19] MEDS ORDERED: MELATONIN 3 MG TAB PO PRN (22:21)
[2020-12-20] MEDS: GABAPENTIN 400 MG CAP PO SCH ×2 (06:30→11:50)
[2020-12-20] MEDS: ALBUTEROL HFA 8 GM INHALER INH SCH ×3 (07:18→15:03)
[2020-12-20] MEDS: CALCIUM ACETATE 667 MG CAP/TAB PO SCH ×2 (07:52→11:50)
[2020-12-20] MEDS: carvediloL 3.125 MG TAB PO SCH (07:52)
[2020-12-20 08:21] LABS: Albumin Globulin Ratio 0.7 (0.9-2); Albumin Level 2.8 gm/dl (3.4-5.0); BUN Creatinine Ratio 4.7 (10-20); Bilirubin,Total 0.3 mg/dl (0.2-1); Calcium 8.2 mg/dl (8.5-10.1); Creatinine Clr Calc Pharmacy 11.2 ml/min; Est GFR (African American) 6.2; Est GFR (Non-African American) 5.3; Globulin 3.8 gm/dl (2.5-4.0); Potassium 5.6 mmol/L (3.5-5.1); Total Protein 6.6 gm/dl (6.4-8.2)
[2020-12-20 08:28] LABS: Hematocrit (blood only) 33.8 % (37-47); Mean Corpuscular Hgb Conc 32.5 g/dL (32-36); Mean Corpuscular Volume 101.5 fL (80-100); Platelet Count 145 K/uL (130-400); Red Blood Count 3.33 M/uL (4.2-5.4); White Blood Count 5.17 K/uL (4.8-10.8)
[2020-12-20] MEDS ORDERED: SERTRALINE HCL 100 MG TABLET PO SCH (09:00)
[2020-12-20] MEDS ORDERED: NEPHROCAPS PO SCH (09:00)
--- NOTE | 2020-12-20 12:17 | Consultation Report ---
DATE OF CONSULTATION: 12/20/2020 REASON FOR CONSULT: Dialysis patient admitted with confusion. HISTORY OF PRESENT ILLNESS: The patient is a 35-year-old female with longstanding diabetes, with ESRD on dialysis Saturday, Saturday, Saturday as well as multiple psychiatric diseases. She was found to be very sleepy and lethargic in dialysis and then became hypotensive. She was having dialysis and about 1 liter of fluid was removed, but then saline was given because of hypotension. By the time she presented to the Emergency, her vitals were completely stable. Urine drug screen could not be done as the patient is anuric, so serum drug screen has been done and is pending. It appears she did get Ativan prior to dialysis. ALLERGIES: Reviewed. HOME MEDICATIONS: List was reviewed in detail. PAST MEDICAL AND SURGICAL HISTORY: Reviewed in detail and includes type 2 diabetes for longstanding duration, ESRD on hemodialysis Saturday, Saturday, Saturday, bipolar disorder, asthma, anxiety, depression and anemia of end-stage renal disease, history of focal segmental glomerulosclerosis, hypertension, migraine, peripheral neuropathy, prolonged QT interval. PAST SURGICAL HISTORY: Reviewed in detail and is as per H and P. FAMILY HISTORY: Positive for diabetes. No dialysis in the family. SOCIAL HISTORY: She is a current day smoker. Occasional marijuana. Occasional alcohol, no drugs. She is . She has 2 children. REVIEW OF SYSTEMS: At this point of time, she is essentially back to baseline and has absolutely no complaints that is acute. PHYSICAL EXAMINATION: GENERAL: Awake, alert, oriented, no distress. Normal affect. Normal speech. VITAL SIGNS: Appears stable. Blood pressure is 144/86, pulse rate 67, temperature 36.4, oxygen saturation 98% on room air. HEENT: Mucous membrane moist. NECK: Supple. No jugular venous distention. CHEST: Bilateral clear to auscultation. CARDIOVASCULAR: S1, S2 regular. ABDOMEN: Soft, nontender and obese. EXTREMITIES: Shows no edema. However, her upper extremity and face does appear puffy. AV fistula with good bruit and thrill. Some asymmetry in the size of the two arm with a fistula arm being bigger. LABORATORY TESTS: From this morning was reviewed and shows sodium 133, potassium 5.6, BUN 41, creatinine is 8.69, albumin 2.8. Urinalysis could not be done. IMAGING: Chest x-ray showed mild pulmonary congestion. ASSESSMENT AND PLAN: A 35-year-old female with end-stage renal disease, on chronic hemodialysis Saturday, Saturday, Saturday through an AV fistula, presented to the hospital yesterday with acute confusion and hypotension during dialysis. As of now no obvious etiology found and it is quite possible this is encephalopathy from medications. 1. End-stage renal disease: Given though her potassium is 5.6, which is slightly high, I do not believe we have to do an extra emergent dialysis today. She will get dialysis tomorrow either as an inpatient or as an outpatient if she gets discharged. 2. Hypotension and confusion. Everything seems to have reverted back to baseline. At this point, she can be discharged if no other problems found.
--- NOTE | 2020-12-20 16:52 | Discharge Summary ---
Date of Service December 20, 2020 Admission HPI Per Admitting Provider This is a 34-year-old female with PMHx of ESRD on dialysis, history of venous access issues, DM type II, HTN, mood disorder, panic attack, and depression. Pt reported to have taken Ativan 0.5 mg PO prior to [place] pickup for dialysis treatment, along with hydroxyzine 50 mg, sertraline 150 mg QAM. She also admits to taking her trazodone last night, as well as smoked marijuana to help her sleep last night. She denies any alcohol use or other illicit drug use. Reports MWF are her routinely scheduled dialysis days and is driven there by the [facility]. She lives at home with her fiancee. Pt denies any acute symptoms and is able to answer complete ROS. During dialysis, staff had 1 L volume removed,however she became acutely hypotensive, they administered a 1 L fluid bolus and then pt became slightly hypertensive. Currently in the ER, her vitals are stable and normotensive. In the ER pt was given Narcan 0.4 mg x 1 without any improvement to slurred speech. The patient does not make any urine, therefore urine drug screen via urine cannot be obtained. Urine drug screen via blood can be done, however it is a send out from our facility and will take several days to return. Admission Exam Per Admitting Provider General: awake, alert, no apparent distress, + lethargic, slurs her speech slightly during exam, obese. Head: Normocephalic, atraumatic ENT: PERRL, EOMI, no pharyngeal exudate, +mucous membranes dry Chest: Clear to auscultation, on room air, no adventitious breath sounds Cardiac: Regular rate and rhythm, no murmur, no JVD, normal peripheral pulses, good capillary refill Abdominal: NABS x 4 quadrants, soft, obese, nondistended, nontender to palpation, no rebound or guarding Extremities: Normal inspection, no peripheral edema or erythema, calfs nontender to palpation. Wearing 3 pairs of socks. Psych: Normal mood and affect Neuro: AAO x 3, unable to correctly name the year, but answers all other questions appropriately. Strength intact bilaterally and rated 5/5, no motor deficits, speech is slurred slightly, no peripheral sensory deficits Principal Diagnosis Hypotension and confusion, possible toxic encephalopathy-resolved ESRD-on hemodialysis uses medical marijuana benzodiazepine use Smoking Discharge Exam CONSTITUTIONAL: obese, vitals as above, generally well-appearing EYES: normal conjunctivae, no scleral icterus ENT: external ear and nose normal, oropharynx clear,MMM NECK: trachea midline RESPIRATORY: clear to auscultation bilaterally, no crackles, rales or wheezes, normal respiratory effort CARDIOVASCULAR: regular rate and rhythm, S1 and 2 heard without murmurs, gallops or rubs, no JVD, no peripheral edema GASTROINTESTINAL: normal bowel sounds, soft, nontender, nondistended. MUSCULOSKELETAL: strength 5/5 throughout, head is normocephalic and atraumatic, neck supple, normal palpation of chest wall without tenderness SKIN: warm and dry, palpable thrill NEUROLOGIC: CN 2-12 grossly intact, no sensory deficit, normal cognition, normal speech, no tremor PSYCHIATRIC: alert cooperative and oriented to person, place and time. Discharge Data Allergies Allergy/AdvReac Type Severity Reaction Status Date / Time cefaclor Allergy Intermediate Rash Verified 12/19/20 08:35 amoxicillin AdvReac Mild VOMITING Verified 12/19/20 08:35 clavulanic acid AdvReac Mild VOMITING Verified 12/19/20 08:35 Consultations 12/19/20 10:01 ED Decision to Admit Stat 12/19/20 14:14 Consult Nephrology Routine Ordered Studies Laboratory Results WBC 5.17 K/uL (4.8-10.8) 12/20/20 07:39 RBC 3.33 M/uL (4.2-5.4) L 12/20/20 07:39 Hgb 11.0 g/dL (12.0-16.0) L 12/20/20 07:39 Hct 33.8 % (37-47) L 12/20/20 07:39 MCV 101.5 fL (80-100) H 12/20/20 07:39 MCH 33.0 pg (25-34) 12/20/20 07:39 MCHC 32.5 g/dL (32-36) 12/20/20 07:39 RDW Std Deviation 58.9 fL (36.4-46.3) H 12/19/20 08:49 RDW Coeff of Laith 15.8 % (11.5-14.5) H 12/19/20 08:49 Plt Count 145 K/uL (130-400) 12/20/20 07:39 MPV 10.0 fL (7.4-10.4) 12/19/20 08:49 Immature Gran % (Auto) 0.3 % 12/19/20 08:49 Neut % (Auto) 83.7 % 12/19/20 08:49 Lymph % (Auto) 9.8 % 12/19/20 08:49 Centre % (Auto) 3.2 % 12/19/20 08:49 Eos % (Auto) 2.8 % 12/19/20 08:49 Baso % (Auto) 0.2 % 12/19/20 08:49 Neut # (Auto) 5.31 K/uL (1.4-6.5) 12/19/20 08:49 Lymph # (Auto) 0.62 K/uL (1.2-3.4) L 12/19/20 08:49 Centre # (Auto) 0.20 K/uL (0.11-0.59) 12/19/20 08:49 Eos # (Auto) 0.18 K/uL (0-0.5) 12/19/20 08:49 Baso # (Auto) 0.01 K/uL (0-0.2) 12/19/20 08:49 Immature Gran # (Auto) 0.02 K/uL (0.00-0.02) 12/19/20 08:49 Sodium 133 mmol/L (136-145) L 12/20/20 07:39 Potassium 5.6 mmol/L (3.5-5.1) H D 12/20/20 07:39 Chloride 99 mmol/L (98-107) 12/20/20 07:39 Carbon Dioxide 25 mmol/L (21-32) 12/20/20 07:39 Anion Gap 9.0 (3-11) 12/20/20 07:39 BUN 41 mg/dl (7-18) H D 12/20/20 07:39 Creatinine 8.69 mg/dl (0.6-1.2) H* D 12/20/20 07:39 Est Cr Clr Drug Dosing 11.2 ml/min 12/20/20 07:39 Est GFR ( Amer) 6.2 12/20/20 07:39 Est GFR (Non-Af Amer) 5.3 12/20/20 07:39 BUN/Creatinine Ratio 4.7 (10-20) L 12/20/20 07:39 Glucose 119 mg/dl (70-99) H 12/20/20 07:39 POC Glucose 87 mg/dl (70-99) 12/19/20 16:33 Calcium 8.2 mg/dl (8.5-10.1) L 12/20/20 07:39 Magnesium 2.6 mg/dl (1.8-2.4) H 12/19/20 09:45 Total Bilirubin 0.3 mg/dl (0.2-1) 12/20/20 07:39 AST 22 U/L (15-37) 12/20/20 07:39 ALT 23 U/L (12-78) 12/20/20 07:39 Alkaline Phosphatase 92 U/L (45-117) 12/20/20 07:39 Total Protein 6.6 gm/dl (6.4-8.2) 12/20/20 07:39 Albumin 2.8 gm/dl (3.4-5.0) L 12/20/20 07:39 Globulin 3.8 gm/dl (2.5-4.0) 12/20/20 07:39 Albumin/Globulin Ratio 0.7 (0.9-2) L 12/20/20 07:39 TSH 3.100 uIu/ml (0.300-4.500) 12/19/20 08:49 COVID-19 Eval Order CovFluRsv at [facility] 12/19/20 09:14 SARS-CoV-2 (PCR) NEGATIVE (Negative) 12/19/20 09:14 Influenza Type A (PCR) Negative (Neg) 12/19/20 09:14 Influenza Type B (PCR) Negative (Neg) 12/19/20 09:14 RSV (RT-PCR) Negative (Neg) 12/19/20 09:14 Miscellaneous Test REPORT 12/19/20 12:00 Impressions Chest X-Ray 12/19/20 07:59 XR chest 1V portable CLINICAL HISTORY: weakness COMPARISON STUDY: Chest radiograph October 14, 2020. FINDINGS: A vascular stent projects over the mediastinum. Lung volumes are diminished. This is unchanged. There is no pneumothorax. There may be trace bilateral pleural effusions. Mild interstitial thickening is present. No consolidation is identified. Cardiomegaly is unchanged. IMPRESSION: 1. Pulmonary vascular congestion with possible mild pulmonary edema. 2. Cardiomegaly. 3. Possible trace bilateral pleural effusions. ACT 112: Negative or not required by law. Electronically signed by: Sebastian Mcclain M.D. 12/19/2020 8:[address] 12/19/20 07:59 CT head/brain wo con CLINICAL HISTORY: Acute change in mental status COMPARISON STUDY: 12/21/2019 TECHNIQUE: Axial CT of the brain is performed from the vertex to the skull base. IV contrast was not administered for this examination. A dose lowering technique was utilized adhering to the principles of ALARA. CT DOSE: 537.48 mGy.cm FINDINGS: No intra or extra-axial mass lesions are visualized. There is no CT evidence of acute cortical infarction. There is no evidence of midline shift. There is no acute hemorrhage. No calvarial fractures are visualized. There is no evidence of pathologic ventricular dilatation. There is no evidence of acute sinusitis IMPRESSION: No acute intracranial findings ACT 112: Negative or not required by law. Electronically signed by: Win Foster M.D. 12/19/2020 9:37 AM Hospital Course (1) Somnolence: (2) ESRD (end stage renal disease) on dialysis: (3) Anemia due to end stage renal disease: (4) Tobacco abuse: 35 yo hemodialysis patient presented to the ER via ambulance for somnolence. She had undergone 240 minutes of dialysis and the session had ended 60 minutes prior to the scheduled stop time as she became symptomatic stating that she felt unwell. She was noted to have normal BP 135/76, but became sleepy and was difficult to arouse per staff. As she had 1L of fluid taken off during her session and her BP had dropped, the HD staff gave her 1L of fluid back and sent her via ambulance to the ER. The patient later reported taking both medical marijuana and Ativan prior to her session for a panic attack. She also takes trazodone per her medication regimen. In the ER she was hemodynamically stable and afebrile and was alert and oriented x [address] and chest xray were unremarkable and an EKG revealed sinus rhythm with no evidence of acute ischemia or blocks. She was admitted to the hospitalist service overnight for observation. Nephrology was consulted and monitored her in the hospital. She remained well overnight and was discharged in stable condition with close primary care follow-up recommended. Total Time Total Time Spent Total Time Spent (In Minutes): 60 Total Time Includes: Examination of the Patient, Discharge Planning, Medication Reconciliation and Communication With Other Providers Discharge Plan Discharge Items Patient Disposition: Home - Self-Care Reason For Visit: LETHARGIC Discharge Diagnosis: Hypotension and confusion, possible toxic encephalopathy-resolved ESRD-on hemodialysis uses medical marijuana benzodiazepine use Smoking Condition on Discharge: Good Activity: Resume your previous activity Non-emergency contact: Primary Care Provider and Medical Tech Call non-emergency contact if: you have any medication questions, your symptoms worsen and your pain is not controlled Follow-up/Referrals: Adolph Aldridge MD [Primary Care Provider] - Diet: Dialysis Renal Addtl Attending Provider Instructions: Please take all medications as instructed on discharge list below. Please continue with your dialysis as scheduled tomorrow. You potassium today was slightly elevated at 5.7. This may need to be repeated on bloodwork tomorrow. Please discuss further with your dialysis staff. It is recommended that you follow-up with your primary care provider within one week of hospital discharge to ensure you are still doing well. It was a pleasure taking care of you! Please call if you have any questions or problems. You can reach a [facility] hospitalist on duty at [facility] 24 hours a day by calling [phone]. Take care of yourself. Ragini Glover, DO [facility] Hospitalist Pending Studies at Discharge: Yes Studies:: drug screen Stand-Alone Forms: My [facility], Smoking Cessation Medications and DC Order Prescriptions: Continued calcium acetate(phosphat bind) 667 mg capsule 667 mg PO UD RF: 0 sertraline 100 mg tablet 150 mg PO QAM RF: 0 gabapentin [Neurontin] 400 mg Capsule See Rx Instructions .ROUTE .COMPLEX RF: 0 trazodone 50 mg tablet 150 mg PO HS RF: 0 Auryxia 210 mg iron tablet 210 mg PO UD RF: 0 carvedilol 3.125 mg tablet 3.125 mg PO BID RF: 0 cinacalcet [Sensipar] 30 mg tablet 60 mg PO PM RF: 0 hydroxyzine HCl 25 mg tablet 25 mg PO Q6 PRN (Reason: Anxiety) RF: 0 albuterol sulfate 90 mcg/actuation HFA aerosol inhaler 2 puff INHALATION QID RF: 0 lorazepam 0.5 mg tablet 0.5 mg PO Q8 PRN (Reason: Panic Attack(S)) RF: 0 amlodipine 10 mg Tablet 10 mg PO HS RF: 0 Renal Vitamin 0.8 mg Tablet 1 tab PO DAILY RF: 0 Discharge Orders: Discharge Order (Routine); Ordered 12/20/20 Ordered By: Ragini Glover Admission Data Admit Date/Time: 12/19/20 10:22 Attending Provider: Ragini Glover Admit Provider: Juan Victor Primary Care Provider: Adolph Aldridge Other Providers: Jameel Wilson Other Interventions: Discharge Summary Assessment (RN) Last Done: 12/20/20 15:53
[2020-12-21] MEDS ORDERED: METOPROLOL TARTRATE 1 MG/ML VIAL IV ONE (10:06)
[2020-12-21] MEDS ORDERED: ATROPINE SULFATE 0.1 MG/ML 10ML SYR IV ONE (10:06)
[2020-12-21] MEDS ORDERED: DOBUTamine HCL 12.5 MG/ML 20 ML VIAL IV ONE (10:07)
== END 2020-12-20 17:18 | disposition home or self-care (01) ==
LOC: ED 07:48 → EDINP 07:48 → SUATTDRO 10:22 → EDINP 13:50 → 2W 14:02

== ENCOUNTER 2021-03-25 01:40 | Inpatient (IN) ==
[2021-03-25] MEDS ORDERED: MoRPHine SULFATE 4 MG/ML 1 ML CARP\\VIAL IV STA (03:19)
[2021-03-25 03:26] LABS: INR 1.3 (0.9-1.1)
--- NOTE | 2021-03-25 03:39 | Emergency Department Note ---
History of Present Illness General Chief complaint: Chest Pain Stated complaint: CHEST PAIN X3WKS/DIALYSIS PT = hgb @ 7 Time Seen by Provider: 03/25/21 01:53 Source: patient Mode of arrival: ambulatory Limitations: no limitations History of Present Illness Provider complaint: low blood counts, chest pain Onset (ago): week(s) Location: chest Radiation: non-radiation Maximum Pain Intensity: 10 This is a 35-year-old female presents emergency department stating she was sent in by her administration professional due to concern for worsening anemia. Patient with multiple chronic comorbidities and is a chronic kidney disease patient on chronic hemodialysis. Patient has had ongoing chest pain for many months and recent bronchitis. It was noted during her last ER visit that her H&H were lower compared to priors. Patient states her baseline is typically between 9 and 10. Patient is anticoagulated, and states her last recheck her INR was 3.2. Patient denies any change in her chest pain, no coughing shortness of breath, denies fevers or chills. Patient states her recent URI symptoms are improving. Patient states she did go to her 3 dialysis treatments this week. Patient states when speaking with her administration professional during her treatment today, they were concerned that her counts were getting low enough where she may need a blood transfusion. Patient denies any black or bloody stools, no history of peptic ulcer disease. She states she has had prior EGD. She denies any recent increased GERD-like symptoms. Denies bleeding from any other source. On review of EMR, during patient's admission in November her hemoglobin was around 11. Since that time her H&H have slowly been going down with each subsequent recheck. Pt seen during a time of high acuity and national emergency pandemic while wearing PPE. Home Medications Medication Instructions Recorded Confirmed Type gabapentin 400 mg capsule 400 - 800 mg PO DIRECTED 01/24/19 03/25/21 History (Neurontin) ferric citrate 210 mg iron tablet 420 mg PO DIRECTED 10/17/19 03/25/21 H istory (Auryxia) carvedilol 3.125 mg tablet 3.125 mg PO BID 12/21/19 03/25/21 History hydroxyzine HCl 25 mg tablet 25 mg PO DAILY PRN 04/21/20 03/25/21 History calcium acetate(phosphat bind) 667 2,001 mg PO WM 06/22/20 03/25/21 History mg capsule albuterol sulfate 90 mcg/actuation 2 puff INHALATION QID PRN 08/01/20 03/25/21 History aerosol inhaler sertraline 100 mg tablet 150 mg PO QAM 08/02/20 03/25/21 History amlodipine 10 mg tablet 10 mg PO HS 08/10/20 03/25/21 History vitamin B complex-vitamin C-folic 1 tab PO QAM 08/10/20 03/25/21 History acid 0.8 mg tablet (Renal Vitamin) warfarin 2.5 mg tablet 2.5 - 5 mg PO DIRECTED 01/30/21 03/25/21 History cinacalcet 30 mg tablet (Sensipar) 60 mg PO PM 03/06/21 03/25/21 History lorazepam 0.5 mg tablet 0.5 mg PO DAILY PRN 03/06/21 03/25/21 History medroxyprogesterone 150 mg/mL 150 mg IM Q90D 03/06/21 03/25/21 History intramuscular suspension trazodone 150 mg tablet 150 mg PO HS 03/06/21 03/25/21 History Allergies Allergy/AdvReac Type Severity Reaction Status Date / Time cefaclor Allergy Intermediate Rash Verified 03/17/21 02:12 amoxicillin AdvReac Mild VOMITING Verified 03/17/21 02:12 clavulanic acid AdvReac Mild VOMITING Verified 03/17/21 02:12 Past Med/Surg History Medical History AMS (altered mental status) Anemia Anemia due to end stage renal disease Anxiety and depression Asthma "BEEN A WHILE" SINCE USING LAST RESCUE INHALER AVF (arteriovenous fistula) CKD (chronic kidney disease) stage V requiring chronic dialysis Dialysis patient SATURDAY/SAT/SATURDAY AT [facility] DM2 (diabetes mellitus, type 2) CONTROLLED WITH DIET AND EXERCISE ESRD (end stage renal disease) on dialysis Fistula LEFT ARM FSGS (focal segmental glomerulosclerosis) DX INITIALLY 2012 (CAUSING ESRD 2012) GERD (gastroesophageal reflux disease) HTN (hypertension) Migraine Peripheral neuropathy Prolonged QT interval Restless leg syndrome Surgical History H/O eye surgery LASER SURGERY LEFT H/O hernia repair ABDOMINAL WALL H/O knee surgery LEFT KNEE X 2 H/O tubal ligation H/O: X 2 History of cardiac cath 2017 NO STENTS History of cholecystectomy History of colonoscopy History of tooth extraction three TOOTH Kidney transplant recipient 2014 AT [facility] Family History Grandmother Hx of CABG Mother Diabetes Father Crohn's disease Grandfather (Maternal) Diabetes Uncle Diabetes Social History Smoking Status: Current every day smoker Tobacco Type: Cigarettes Cigarettes Per Day: 20; Second Hand Exposure: No; Do You Dip or Chew Tobacco: No; Hx Alcohol Use: Yes Alcohol type: hard liquor Alcohol Intake Frequency Comment: q3 months Hx Substance Use: Yes Last Used Substance: Hours (ago) Preferred Language: Tamazight Communication Ability: Effective Curb Setter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 Beliefs That Will Affect Care: None marital status: Current Living Situation: Other Current Living Situation Comment: Friend How many Children do You have: 2 Other Information That Helps Us Care for You: No Feels Safe at Home: Yes Safety Concerns: Feels Safe At This Time Assistive Devices: None Review of Systems A total of 10 systems reviewed and were otherwise negative All systems reviewed & are unremarkable except as noted in HPI & below Physical Exam Vital Signs Vital Signs - 24 hr 03/25/21 01:50 03/25/21 02:01 03/25/21 02:30 Temperature 37.1 C Temperature Source Oral Pulse Rate 91 H 89 90 Pulse Rate [Right Finger] Pulse Rate from SpO2 Sensor 89 90 Pulse Rhythm Regular Pulse Strength Normal Respiratory Rate 20 17 16 Respiratory Effort / Characteristics Non-Labored Respiratory Depth Normal Blood Pressure 141/86 H 126/86 Blood Pressure [Right Arm] Blood Pressure Mean 104 101 99 Blood Pressure Mean [Right Arm] Blood Pressure Position Sitting Pulse Oximetry 100 100 99 Oxygen Delivery Method Room Air Sepsis Recent Fever Within 48 Hours No Sepsis New/Unexplained Change in Mental Status No Sepsis Action Taken by Nursing No Action Required 03/25/21 03:00 03/25/21 03:12 03/25/21 03:30 Temperature Temperature Source Pulse Rate 95 H 89 Pulse Rate [Right Finger] 90 Pulse Rate from SpO2 Sensor Pulse Rhythm Pulse Strength Respiratory Rate 20 20 15 Respiratory Effort / Characteristics Respiratory Depth Blood Pressure 107/92 108/79 Blood Pressure [Right Arm] 107/92 Blood Pressure Mean 97 88 Blood Pressure Mean [Right Arm] 97 Blood Pressure Position Pulse Oximetry 96 98 94 Oxygen Delivery Method Sepsis Recent Fever Within 48 Hours Sepsis New/Unexplained Change in Mental Status Sepsis Action Taken by Nursing 03/25/21 04:00 03/25/21 04:30 03/25/21 05:00 Temperature Temperature Source Pulse Rate 86 91 H 84 Pulse Rate [Right Finger] Pulse Rate from SpO2 Sensor 84 Pulse Rhythm Pulse Strength Respiratory Rate 12 13 15 Respiratory Effort / Characteristics Respiratory Depth Blood Pressure 123/82 104/68 123/77 Blood Pressure [Right Arm] Blood Pressure Mean 95 80 92 Blood Pressure Mean [Right Arm] Blood Pressure Position Pulse Oximetry 93 100 100 Oxygen Delivery Method Sepsis Recent Fever Within 48 Hours Sepsis New/Unexplained Change in Mental Status Sepsis Action Taken by Nursing 03/25/21 05:30 03/25/21 05:32 03/25/21 05:50 Temperature 36.8 C 36.8 C Temperature Source Oral Oral Pulse Rate 85 85 88 Pulse Rate [Right Finger] Pulse Rate from SpO2 Sensor 86 Pulse Rhythm Pulse Strength Respiratory Rate 20 12 20 Respiratory Effort / Characteristics Respiratory Depth Blood Pressure 119/76 119/76 114/84 Blood Pressure [Right Arm] Blood Pressure Mean 90 90 94 Blood Pressure Mean [Right Arm] Blood Pressure Position Pulse Oximetry 100 100 99 Oxygen Delivery Method Sepsis Recent Fever Within 48 Hours Sepsis New/Unexplained Change in Mental Status Sepsis Action Taken by Nursing 03/25/21 06:00 03/25/21 06:05 03/25/21 06:31 Temperature 36.6 C Temperature Source Oral Pulse Rate 84 85 88 Pulse Rate [Right Finger] Pulse Rate from SpO2 Sensor 86 90 Pulse Rhythm Pulse Strength Respiratory Rate 15 20 13 Respiratory Effort / Characteristics Respiratory Depth Blood Pressure 122/76 128/84 Blood Pressure [Right Arm] Blood Pressure Mean 91 98 Blood Pressure Mean [Right Arm] Blood Pressure Position Pulse Oximetry 100 100 100 Oxygen Delivery Method Sepsis Recent Fever Within 48 Hours Sepsis New/Unexplained Change in Mental Status Sepsis Action Taken by Nursing 03/25/21 06:35 03/25/21 07:13 03/25/21 07:35 Temperature 36.7 C 36.9 C Temperature Source Oral Oral Pulse Rate 85 85 Pulse Rate [Right Finger] Pulse Rate from SpO2 Sensor Pulse Rhythm Pulse Strength Respiratory Rate 16 Respiratory Effort / Characteristics Respiratory Depth Blood Pressure 121/84 115/77 Blood Pressure [Right Arm] Blood Pressure Mean 96 89 Blood Pressure Mean [Right Arm] Blood Pressure Position Sitting Pulse Oximetry 99 94 Oxygen Delivery Method Room Air Sepsis Recent Fever Within 48 Hours Sepsis New/Unexplained Change in Mental Status Sepsis Action Taken by Nursing GENERAL: alert, well appearing, well nourished, no distress, non-toxic, BMI>35 EYE EXAM: normal conjunctiva, PERRL and EOM's grossly intact OROPHARYNX: no exudate, no erythema, lips, buccal mucosa, and tongue normal and mucous membranes are moist NECK: supple, no nuchal rigidity, no adenopathy, non-tender LUNGS: Clear to auscultation. Normal chest wall mechanics, no w/r/r HEART: no murmurs, S1 normal and S2 normal ABDOMEN: abdomen soft, non-tender, normo-active bowel sounds, no masses, no rebound or guarding. BACK: Back is symmetrical on inspection and there is no deformity, no midline tenderness, no CVA tenderness. SKIN: no rashes and no bruising UPPER EXTREMITIES: upper extremities are grossly normal. FROM, nml pulses b/l. Fistula is present in both arms for dialysis. Positive thrill and bruit for both. LOWER EXTREMITIES: No pitting edema. FROM, nml pulses b/l. NEURO EXAM: Normal sensorium, cranial nerves II-XII grossly intact, normal speech, no gross weakness of arms, no gross weakness of legs. Gross sensation intact. Course Course 0402: Updated patient on results and need for likely inpatient evaluation and transfusion. Patient has previously had blood transfusion although states it has been many years. No prior reactions or problems. 0445: Patient signed blood consent. 0519: Discussed with Dr. Blank. Administered Medications Acetaminophen (Acetaminophen 325 Mg Tab) 650 mg PO Q6H PRN PRN Reason: Fever/pain Stop: 04/24/21 06:06 Last Admin: 03/25/21 08:01 Dose: 650 mg Documented by: [id number] Amlodipine Besylate (Amlodipine Besylate 5 Mg Tab) 10 mg PO HS NIKKI Stop: 04/24/21 20:59 Last Admin: 03/25/21 20:34 Dose: 10 mg Documented by: [id number] Calcium Acetate (Calcium Acetate 667 Mg Cap/Tab) 2,001 mg PO TIDM NIKIK Stop: 04/24/21 11:59 Last Admin: 03/25/21 17:00 Dose: 2,001 mg Documented by: [id number] Admin: 03/25/21 14:09 Dose: 2,001 mg Documented by: [id number] Carvedilol (Carvedilol 3.125 Mg Tab) 3.125 mg PO BID [facility] Stop: 04/24/21 11:17 Last Admin: 03/25/21 20:34 Dose: 3.125 mg Documented by: [id number] Admin: 03/25/21 14:09 Dose: 3.125 mg Documented by: [id number] Cinacalcet (Cinacalcet Hcl 30 Mg Tab) 60 mg PO QDD [facility] Stop: 04/24/21 16:29 Last Admin: 03/25/21 16:59 Dose: 60 mg Documented by: [id number] Gabapentin (Gabapentin 400 Mg Cap) 400 mg PO BID@0730,1130 [facility] Stop: 04/24/21 11:29 Last Admin: 03/25/21 12:10 Dose: 400 mg Documented by: [id number] Gabapentin (Gabapentin 400 Mg Cap) 800 mg PO DAILY@1630 [facility] Stop: 04/24/21 16:29 Last Admin: 03/25/21 17:00 Dose: 800 mg Documented by: [id number] Insulin Aspart (Insulin Aspart 100 Units/Ml 3 Ml Pen) 0 units SC ACHS [facility] Stop: 04/24/21 11:29 Last Admin: 03/25/21 20:38 Dose: Not Given Documented by: [id number] Admin: 03/25/21 17:05 Dose: 2 units Documented by: [id number] Cosigned by: [id number] Admin: 03/25/21 12:14 Dose: 2 units Documented by: [id number] Cosigned by: [id number] Aurfausto ~ Non- Formulary Patient's Own Med 2 ea PO TIDM [facility] Stop: 04/24/21 16:59 Last Admin: 03/25/21 17:34 Dose: 2 tabs Documented by: [id number] Auryxia ~ Non- Formulary Patient's Own Med 1 ea PO PRN PRN PRN Reason: SNACKS Stop: 04/24/21 13:43 Last Admin: 03/25/21 17:01 Dose: 2 tabs Documented by: [id number] Sertraline HCl (Sertraline Hcl 50 Mg Tablet) 150 mg PO QAM [facility] Stop: 04/24/21 11:17 Last Admin: 03/25/21 14:10 Dose: 150 mg Documented by: [id number] Trazodone HCl (Trazodone Hcl 50 Mg Tab) 150 mg PO HS NIKKI Stop: 04/24/21 20:59 Last Admin: 03/25/21 20:34 Dose: 150 mg Documented by: [id number] Vitamin B Complex/Folic Acid (Nephrocaps) 1 cap PO QAM NIKKI Stop: 04/24/21 11:17 Last Admin: 03/25/21 12:10 Dose: 1 cap Documented by: [id number] Discontinued Medications Morphine Sulfate (Morphine Sulfate 4 Mg/Ml 1 Ml Carp\\Vial) 4 mg IV NOW STA Stop: 03/25/21 03:20 Last Admin: 03/25/21 03:27 Dose: 4 mg Documented by: [id number] Tramadol HCl (Tramadol Hcl 50 Mg Tablet) 25 mg PO Q4H PRN PRN Reason: Pain Stop: 04/24/21 06:06 Last Admin: 03/25/21 12:21 Dose: 25 mg Documented by: [id number] Admin: 03/25/21 07:07 Dose: 25 mg Documented by: [id number] Warfarin Sodium (Warfarin Sod 2.5 Mg Tab) 2.5 mg PO ONE ONE Stop: 03/25/21 17:27 Last Admin: 03/25/21 18:34 Dose: Not Given Documented by: [id number] Critical Care Time Critical Care Time: Yes Total Critical Care Time: 35 Critical care of 35 min performed to assess and manage high likelihood of life- threatening anemia, involving labs and imaging performed with assessment to evaluate anemia diagnosis] with frequent reassessment. This time includes bedside time, treatment discussions with patient/family/consultants, d ocumentation time and excludes procedure time. Medical Decision Making Differential Diagnosis Differential diagnoses includes but is not limited to acute coronary syndrome, myocardial infarction, pericarditis, pulmonary embolus, aortic dissection, pneumonia, pneumothorax, musculoskeletal, shingles, esophageal. Medical Records Attestation: I reviewed the patient's medical records. Home Medications Current Medication List: was personally reviewed by me Laboratory Data Attestation: I reviewed the patient's lab results. Result diagrams: 03/26/21 06:17 03/26/21 06:17 Lab Results 03/25/21 03/25/21 03/25/21 Range/Units 03:08 03:08 03:08 WBC 7.44 (4.8-10.8) K/uL RBC 1.90 L (4.2-5.4) M/uL Hgb 6.3 L* (12.0-16.0) g/dL Hct 18.9 L* (37-47) % MCV 99.5 (80-100) fL MCH 33.2 (25-34) pg MCHC 33.3 (32-36) g/dL RDW Std Deviation 52.1 H (36.4-46.3) fL RDW Coeff of Laith 14.5 (11.5-14.5) % Plt Count 186 (130-400) K/uL MPV 9.0 (7.4-10.4) fL Immature Gran % (Auto) 0.1 % Neut % (Auto) 76.4 % Lymph % (Auto) 16.4 % [place] % (Auto) 4.2 % Eos % (Auto) 2.8 % Baso % (Auto) 0.1 % Neut # (Auto) 5.68 (1.4-6.5) K/uL Lymph # (Auto) 1.22 (1.2-3.4) K/uL [place] # (Auto) 0.31 (0.11-0.59) K/uL Eos # (Auto) 0.21 (0-0.5) K/uL Baso # (Auto) 0.01 (0-0.2) K/uL Immature Gran # (Auto) 0.01 (0.00-0.02) K/uL RBC Morphology Unremarkable PT 13.0 H (9.0-12.0) Seconds INR 1.3 H (0.9-1.1) APTT (21.0-31.0) Seconds PTT Ratio Sodium (136-145) mmol/L Potassium (3.5-5.1) mmol/L Chloride (98-107) mmol/L Carbon Dioxide (21-32) mmol/L Anion Gap (3-11) BUN (7-18) mg/dl Creatinine (0.6-1.2) mg/dl Est Cr Clr Drug Dosing ml/min Est GFR ( Amer) ml/min Est GFR (Non-Af Amer) ml/min BUN/Creatinine Ratio (10-20) Glucose (70-99) mg/dl Estimat Average Glucose mg/dl Hemoglobin A1c (4.5-5.6) % Calcium (8.5-10.1) mg/dl Magnesium (1.8-2.4) mg/dl Total Bilirubin (0.2-1) mg/dl AST (15-37) U/L ALT (12-78) U/L Alkaline Phosphatase (45-117) U/L Troponin I (0-0.045) ng/ml Total Protein (6.4-8.2) gm/dl Albumin (3.4-5.0) gm/dl Globulin (2.5-4.0) gm/dl Albumin/Globulin Ratio (0.9-2) COVID-19 Eval Order SARS-CoV-2 (PCR) (Negative) Blood Type A Positive Antibody Screen NEGATIVE Crossmatch See Detail 03/25/21 03/25/21 03/25/21 Range/Units 03:08 03:08 03:08 WBC (4.8-10.8) K/uL RBC (4.2-5.4) M/uL Hgb (12.0-16.0) g/dL Hct (37-47) % MCV (80-100) fL MCH (25-34) pg MCHC (32-36) g/dL RDW Std Deviation (36.4-46.3) fL RDW Coeff of Laith (11.5-14.5) % Plt Count (130-400) K/uL MPV (7.4-10.4) fL Immature Gran % (Auto) % Neut % (Auto) % Lymph % (Auto) % [place] % (Auto) % Eos % (Auto) % Baso % (Auto) % Neut # (Auto) (1.4-6.5) K/uL Lymph # (Auto) (1.2-3.4) K/uL [place] # (Auto) (0.11-0.59) K/uL Eos # (Auto) (0-0.5) K/uL Baso # (Auto) (0-0.2) K/uL Immature Gran # (Auto) (0.00-0.02) K/uL RBC Morphology PT (9.0-12.0) Seconds INR (0.9-1.1) APTT 25.2 (21.0-31.0) Seconds PTT Ratio 1.0 Sodium 136 (136-145) mmol/L Potassium 3.8 (3.5-5.1) mmol/L Chloride 102 (98-107) mmol/L Carbon Dioxide 27 (21-32) mmol/L Anion Gap 7.0 (3-11) BUN 38 H (7-18) mg/dl Creatinine 7.29 H* (0.6-1.2) mg/dl Est Cr Clr Drug Dosing 13.3 ml/min Est GFR ( Amer) 7.7 ml/min Est GFR (Non-Af Amer) 6.6 ml/min BUN/Creatinine Ratio 5.1 L (10-20) Glucose 138 H (70-99) mg/dl Estimat Average Glucose mg/dl Hemoglobin A1c (4.5-5.6) % Calcium 8.8 (8.5-10.1) mg/dl Magnesium 2.4 (1.8-2.4) mg/dl Total Bilirubin 0.4 (0.2-1) mg/dl AST 17 (15-37) U/L ALT 31 (12-78) U/L Alkaline Phosphatase 61 (45-117) U/L Troponin I 0.047 H* (0-0.045) ng/ml Total Protein 6.8 (6.4-8.2) gm/dl Albumin 3.2 L (3.4-5.0) gm/dl Globulin 3.6 (2.5-4.0) gm/dl Albumin/Globulin Ratio 0.9 (0.9-2) COVID-19 Eval Order SARS-CoV-2 (PCR) (Negative) Blood Type Antibody Screen Crossmatch 03/25/21 03/25/21 03/25/21 Range/Units 03:08 05:25 05:25 WBC (4.8-10.8) K/uL RBC (4.2-5.4) M/uL Hgb (12.0-16.0) g/dL Hct (37-47) % MCV (80-100) fL MCH (25-34) pg MCHC (32-36) g/dL RDW Std Deviation (36.4-46.3) fL RDW Coeff of Laith (11.5-14.5) % Plt Count (130-400) K/uL MPV (7.4-10.4) fL Immature Gran % (Auto) % Neut % (Auto) % Lymph % (Auto) % [place] % (Auto) % Eos % (Auto) % Baso % (Auto) % Neut # (Auto) (1.4-6.5) K/uL Lymph # (Auto) (1.2-3.4) K/uL [place] # (Auto) (0.11-0.59) K/uL Eos # (Auto) (0-0.5) K/uL Baso # (Auto) (0-0.2) K/uL Immature Gran # (Auto) (0.00-0.02) K/uL RBC Morphology PT (9.0-12.0) Seconds INR (0.9-1.1) APTT (21.0-31.0) Seconds PTT Ratio Sodium (136-145) mmol/L Potassium (3.5-5.1) mmol/L Chloride (98-107) mmol/L Carbon Dioxide (21-32) mmol/L Anion Gap (3-11) BUN (7-18) mg/dl Creatinine (0.6-1.2) mg/dl Est Cr Clr Drug Dosing ml/min Est GFR ( Amer) ml/min Est GFR (Non-Af Amer) ml/min BUN/Creatinine Ratio (10-20) Glucose (70-99) mg/dl Estimat Average Glucose 183 mg/dl Hemoglobin A1c 8.0 H (4.5-5.6) % Calcium (8.5-10.1) mg/dl Magnesium (1.8-2.4) mg/dl Total Bilirubin (0.2-1) mg/dl AST (15-37) U/L ALT (12-78) U/L Alkaline Phosphatase (45-117) U/L Troponin I (0-0.045) ng/ml Total Protein (6.4-8.2) gm/dl Albumin (3.4-5.0) gm/dl Globulin (2.5-4.0) gm/dl Albumin/Globulin Ratio (0.9-2) COVID-19 Eval Order Covid19 at [facility] SARS-CoV-2 (PCR) NEGATIVE (Negative) Blood Type Antibody Screen Crossmatch Imaging Data Radiologist's Impression: Chest X-Ray 03/25/21 02:10 SINGLE VIEW CHEST CLINICAL HISTORY: Atypical chest pain. FINDINGS: An AP, portable, upright chest radiograph is compared to study dated 03/19/2021. Correlation is made with chest CT dated 08/11/2020. A stent projects over the mediastinum. The heart is enlarged. The pulmonary vasculature is noncon gested. The lungs and pleural spaces are clear. No pneumothorax is seen. The bony thorax is grossly intact. IMPRESSION: Cardiomegaly with no acute cardiopulmonary abnormality. ACT 112: Negative or not required by law. Electronically signed by: North Quintero M.D. 03/25/2021 8:[address] 03/25/21 06:06 CT SCAN OF THE BRAIN WITHOUT IV CONTRAST CLINICAL HISTORY: Headache. COMPARISON STUDY: CT of the brain dated 12/19/2020. TECHNIQUE: Unenhanced axial CT scan of the brain is performed from the vertex to the skull base. A dose lowering technique was utilized adhering to the principles of ALARA. CT DOSE: 537.48 mGy.cm FINDINGS: Brain parenchyma: The brain parenchyma is normal in appearance. There is no hemorrhage, mass effect, or evidence of acute territorial ischemia by CT criteria. Rodríguez-white matter differentiation is preserved. No extra-axial fluid collection is seen. Ventricles, sulci, cisterns: Normal in configuration. Intracranial vasculature: The visualized intracranial vasculature at the skull base is normal in appearance. Calvarium: Unremarkable. Sinuses and mastoids: The visualized paranasal sinuses are clear. The mastoid air cells are well pneumatized. Orbits: The bony orbits are grossly intact. IMPRESSION: No acute intracranial abnormality. ACT 112: Negative or not required by law. Electronically signed by: North Quintero M.D. 03/25/2021 6:52 AM ECG Data Attestation: I personally reviewed and interpreted this ECG as follows: Indication: + chest pain Rate (beats per minute): 92 Rhythm: + normal sinus ECG Intervals/blocks: + First degree AV block, + Normal QRS and + Prolonged QT ECG [place]: + Normal ECG ST segments: + Nonspecific ST abnormalities MDM Narrative This is a 35-year-old female who is well-known to the emergency room with multiple medical problems who presents at the encouragement of her administration professional whom she saw today during dialysis for evaluation of her anemia. Patient with recent URI, and has chronic chest pain. EKG without any acute changes and patient hemodynamically stable. Repeat H&H was worse than prior and on review of labs over the last several months patient has been trending down since November. Patient is anticoagulated. Was recently supratherapeutic and on recheck tonight was subtherapeutic despite patient stating she has been taking them. Patient denies any black or bloody stools or bleeding from any site. Case discussed with hospitalist for additional evaluation and management. Patient did sign blood consent form and a unit was ordered and started while in the emergency room. Patient remained well-appearing while in the ER. Additional labs and imaging were added by the admitting hospitalist including the CT head up above. Patient had no complaints of headache, dizziness, or other neurologic symptoms during my exam. Patient does have audible chronic complaints and comorbidities. Patient does have a history of noncompliance. Patient was given a dose of Protonix despite reporting no increase in reflux type symptoms recently. Patient has previously had an EGD. An order was placed for continuous cardiac monitoring. The monitor shows a rate of 80 with _normal sinus_ rhythm. Impression & Plan Anemia, Chest pain, Symptomatic anemia Discharge Plan Visit Data Chief Complaint: Chest Pain Stated Complaint: CHEST PAIN X3WKS/DIALYSIS PT = hgb @ 7 ED Provider: Taylor Rodarte Discharge Problem: Anemia, Chest pain, Symptomatic anemia Patient Disposition: Admitted As Inpatient Discharge Instructions Interventions: ED Discharge Assessment Last Done: 03/25/21 11:36 Discharge Problem: Anemia Qualifiers: Anemia type: unspecified type Qualified Code(s): D64.9 - Anemia, unspecified Chest pain Qualifiers: Chest pain type: unspecified Qualified Code(s): R07.9 - Chest pain, unspecified
[2021-03-25 03:50] LABS: Albumin Globulin Ratio 0.9 (0.9-2); Albumin Level 3.2 gm/dl (3.4-5.0); BUN Creatinine Ratio 5.1 (10-20); Basophils # (auto) 0.01 K/uL (0-0.2); Basophils % (auto) 0.1 %; Bilirubin,Total 0.4 mg/dl (0.2-1); Calcium 8.8 mg/dl (8.5-10.1); Creatinine Clr Calc Pharmacy 13.3 ml/min; Eosinophils # (auto) 0.21 K/uL (0-0.5); Eosinophils % (auto) 2.8 %; Est GFR (African American) 7.7 ml/min; Est GFR (Non-African American) 6.6 ml/min; Globulin 3.6 gm/dl (2.5-4.0); Hematocrit (blood only) 18.9 % (37-47); Hemoglobin 6.3 g/dL (12.0-16.0); Immature Granulocytes # (auto) 0.01 K/uL (0.00-0.02); Immature Granulocytes % (auto) 0.1 %; Lymphocytes # (auto) 1.22 K/uL (1.2-3.4); Lymphocytes % (auto) 16.4 %; Mean Corpuscular Hemoglobin 33.2 pg (25-34); Mean Corpuscular Hgb Conc 33.3 g/dL (32-36); Mean Corpuscular Volume 99.5 fL (80-100); Monocytes # (auto) 0.31 K/uL (0.11-0.59); Monocytes % (auto) 4.2 %; Neutrophils # (auto) 5.68 K/uL (1.4-6.5); Neutrophils % (auto) 76.4 %; Platelet Count 186 K/uL (130-400); Potassium 3.8 mmol/L (3.5-5.1); RBC Morphology Unremarkable; RDW Coefficient of Variation 14.5 % (11.5-14.5); RDW Standard Deviation 52.1 fL (36.4-46.3); Total Protein 6.8 gm/dl (6.4-8.2); White Blood Count 7.44 K/uL (4.8-10.8)
[2021-03-25] MEDS ORDERED: SODIUM CHLORIDE 0.9% 250 ML IV PRN ×2 (05:01→18:20)
[2021-03-25 05:58] LABS: Partial Thromboplastin Time 25.2 Seconds (21.0-31.0)
[2021-03-25] MEDS ORDERED: ACETAMINOPHEN 325 MG TAB PO PRN (06:07)
--- NOTE | 2021-03-25 06:08 | History & Physical Report ---
Date of Service March 25, 2021 Assessment & Plan (1) Symptomatic anemia: Plan: Chest pain with troponin elevation, exertional shortness of breath secondary to progressive hemoglobin decrease over the last few weeks Possibly from ESRD anemia. No overt source of bleed for now. 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 PCU Anemia work-up Transfuse PRBC to maintain hemoglobin of at least 8 given symptomatic anemia and troponin elevation. TTE Re: Troponin elevation IV heparin followed by Coumadin bridge therapy for AV graft thrombosis if subsequent hemoglobin stable Nephrology consult Re: ESRD on HD, anemia ISS BG goal 1 40-1 80, update hemoglobin A1c Nicotine patch PRN. DVT prophylaxis. SCDs while Coumadin on hold and patient not on anticoagulation, IV heparin followed by Coumadin bridge therapy if subsequent hemoglobin stable, goal INR between 2 and 3 Full code Text document was generated using [employer] voice recognition software. It may contain grammatical or spelling errors. Kindly contact undersigned for clarification of any documentation item in question. History of Present Illness Chief Complaint: Chest pain, shortness of breath, headache Primary Care Provider: Adolph Aldridge MD History obtained from patient and records. Medical history significant for hypertension, ESRD on HD, history of FSGS status post failed renal transplantation, AV graft thrombus on Coumadin, DM2, diet controlled, mood disorder, chronic anemia (baseline hemoglobin of 11), history of migraine, ongoing tobacco abuse. Recent confinement November 2020 for hypotension and confusion, toxic encephalopathy attributed to home medications. Patient seen at the ER last week for sore throat, cough, worsening shortness of breath symptoms with exertion for about 2 weeks partially responsive to outpatient steroid and antibiotic courses.. Soft tissue neck CT showed prominent adenoids and lingual tonsils. Hemoglobin noted to be 7.4 during visit with note of progressive decrease from baseline of 11 over the last few weeks. Worsening substernal pain and exertional shortness of breath the last few days. Patient advised by apparel sales associate to go to ER if symptoms persistent as progressive anemia over the last few weeks may be contributory to her symptoms. Patient denies abdominal pain/flank pain, black/bloody stools, or unusual extremity swelling. Transient headache symptoms yesterday after patient received news of gran dmother's confinement. Patient consulted ER. 1 unit packed RBC transfused for hemoglobin of 6.3 Medical History as above Hemodialysis Saturday Surgical History : Vascular procedures, section, cystoscopy, knee surgery, eye surgery, BTL, renal biopsy, kidney transplant, kidney transplant, thrombectomy Family History : SLE, Crohn's disease, high blood pressure, depression Personal/Social history : Few cigarettes a day, no EtOH intake, currently unemployed Allergies Allergy/AdvReac Type Severity Reaction Status Date / Time cefaclor Allergy Intermediate Rash Verified 03/17/21 02:12 amoxicillin AdvReac Mild VOMITING Verified 03/17/21 02:12 clavulanic acid AdvReac Mild VOMITING Verified 03/17/21 02:12 Home Medications Medication Instructions Recorded Confirmed Type gabapentin 400 mg capsule 400 - 800 mg PO DIRECTED 01/24/19 03/25/21 History (Neurontin) ferric citrate 210 mg iron tablet 420 mg PO DIRECTED 10/17/19 03/25/21 History (Auryxia) carvedilol 3.125 mg tablet 3.125 mg PO BID 12/21/19 03/25/21 History hydroxyzine HCl 25 mg tablet 25 mg PO DAILY PRN 04/21/20 03/25/21 History calcium acetate(phosphat bind) 667 2,001 mg PO WM 06/22/20 03/25/21 History mg capsule albuterol sulfate 90 mcg/actuation 2 puff INHALATION QID PRN 08/01/20 03/25/21 History aerosol inhaler sertraline 100 mg tablet 150 mg PO QAM 08/02/20 03/25/21 History amlodipine 10 mg tablet 10 mg PO HS 08/10/20 03/25/21 History vitamin B complex-vitamin C-folic 1 tab PO QAM 08/10/20 03/25/21 History acid 0.8 mg tablet (Renal Vitamin) warfarin 2.5 mg tablet 2.5 - 5 mg PO DIRECTED 01/30/21 03/25/21 History cinacalcet 30 mg tablet (Sensipar) 60 mg PO PM 03/06/21 03/25/21 History lorazepam 0.5 mg tablet 0.5 mg PO DAILY PRN 03/06/21 03/25/21 History medroxyprogesterone 150 mg/mL 150 mg IM Q90D 03/06/21 03/25/21 History intramuscular suspension trazodone 150 mg tablet 150 mg PO HS 03/06/21 03/25/21 History Past Med/Surg History Medical History AMS (altered mental status) Anemia Anemia due to end stage renal disease Anxiety and depression Asthma "BEEN A WHILE" SINCE USING LAST RESCUE INHALER AVF (arteriovenous fistula) CKD (chronic kidney disease) stage V requiring chronic dialysis Dialysis patient SATURDAY/SAT/SATURDAY AT [facility] DM2 (diabetes mellitus, type 2) CONTROLLED WITH DIET AND EXERCISE ESRD (end stage renal disease) on dialysis Fistula LEFT ARM FSGS (focal segmental glomerulosclerosis) DX INITIALLY 2012 (CAUSING ESRD 2012) GERD (gastroesophageal reflux disease) HTN (hypertension) Migraine Peripheral neuropathy Prolonged QT interval Restless leg syndrome Surgical History H/O eye surgery LASER SURGERY LEFT H/O hernia repair ABDOMINAL WALL H/O knee surgery LEFT KNEE X 2 H/O tubal ligation H/O: X 2 History of cardiac cath 2016 NO STENTS History of cholecystectomy History of colonoscopy History of tooth extraction three TOOTH Kidney transplant recipient 2013 AT [facility] Family History Grandmother Hx of CABG Mother Diabetes Father Crohn's disease Grandfather (Maternal) Diabetes Uncle Diabetes Social History Smoking Status: Current every day smoker Tobacco Type: Cigarettes Cigarettes Per Day: 20; Second Hand Exposure: No; Do You Dip or Chew Tobacco: No; Hx Alcohol Use: Yes Alcohol type: hard liquor Alcohol Intake Frequency Comment: q3 months Hx Substance Use: Yes Last Used Substance: Hours (ago) Preferred Language: Setswana Communication Ability: Effective Binding Cutter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 Beliefs That Will Affect Care: None marital status: Current Living Situation: Other Current Living Situation Comment: Friend How many Children do You have: 2 Other Information That Helps Us Care for You: No Feels Safe at Home: Yes Safety Concerns: Feels Safe At This Time Assistive Devices: None Review of Systems Review of Systems: As per HPI, all 10 systems reviewed, chronic joint aches, all other ROS negative Physical Exam Physical Exam: GENERAL: Comfortable, obese, looks older than stated age, no respiratory distress SKIN: Pallor,, warm HEENT: Pale palpebral conjunctivae, no ptosis, dry buccal mucosa NECK : Supple, short neck, no tenderness CHEST : Decreased breath sounds, no tenderness HEART : RRR, no obvious murmurs ABDOMEN: Some distention, nontender RECTAL : Intact sphincter, brown stool (FOBT negative) EXTREMITIES : Minimal LE swelling, no LE tenderness, upper extremity AV grafts, no other conspicuous deformities noted NEUROLOGIC : Coherent, no facial asymmetry, no other gross focality Results & Data Results & Data ([facility]) Vital Signs (Past 12 Hours) Vital Signs Temp Pulse Pulse Resp BP BP Pulse Ox 03/25/21 06:05 36.6 C 85 20 128/84 100 03/25/21 05:50 36.8 C 88 20 114/84 99 03/25/21 05:32 85 12 119/76 100 03/25/21 05:30 36.8 C 85 20 119/76 100 03/25/21 05:00 84 15 123/77 100 03/25/21 04:30 91 H 13 104/68 100 03/25/21 04:00 86 12 123/82 93 03/25/21 03:30 89 15 108/79 94 03/25/21 03:12 90 20 107/92 98 03/25/21 03:00 95 H 20 107/92 96 03/25/21 02:30 90 16 126/86 99 03/25/21 02:01 89 17 100 03/25/21 01:50 37.1 C 91 H 20 141/86 H 100 Laboratory Results Laboratory Results WBC 7.44 K/uL (4.8-10.8) 03/25/21 03:08 RBC 1.90 M/uL (4.2-5.4) L 03/25/21 03:08 Hgb 6.3 g/dL (12.0-16.0) L* 03/25/21 03:08 Hct 18.9 % (37-47) L* 03/25/21 03:08 MCV 99.5 fL (80-100) 03/25/21 03:08 MCH 33.2 pg (25-34) 03/25/21 03:08 MCHC 33.3 g/dL (32-36) 03/25/21 03:08 RDW Std Deviation 52.1 fL (36.4-46.3) H 03/25/21 03:08 RDW Coeff of Laith 14.5 % (11.5-14.5) 03/25/21 03:08 Plt Count 186 K/uL (130-400) 03/25/21 03:08 MPV 9.0 fL (7.4-10.4) 03/25/21 03:08 Immature Gran % (Auto) 0.1 % 03/25/21 03:08 Neut % (Auto) 76.4 % 03/25/21 03:08 Lymph % (Auto) 16.4 % 03/25/21 03:08 Daniels % (Auto) 4.2 % 03/25/21 03:08 Eos % (Auto) 2.8 % 03/25/21 03:08 Baso % (Auto) 0.1 % 03/25/21 03:08 Neut # (Auto) 5.68 K/uL (1.4-6.5) 03/25/21 03:08 Lymph # (Auto) 1.22 K/uL (1.2-3.4) 03/25/21 03:08 Daniels # (Auto) 0.31 K/uL (0.11-0.59) 03/25/21 03:08 Eos # (Auto) 0.21 K/uL (0-0.5) 03/25/21 03:08 Baso # (Auto) 0.01 K/uL (0-0.2) 03/25/21 03:08 Immature Gran # (Auto) 0.01 K/uL (0.00-0.02) 03/25/21 03:08 RBC Morphology Unremarkable 03/25/21 03:08 PT 13.0 Seconds (9.0-12.0) H 03/25/21 03:08 INR 1.3 (0.9-1.1) H 03/25/21 03:08 APTT 25.2 Seconds (21.0-31.0) 03/25/21 03:08 PTT Ratio 1.0 03/25/21 03:08 Sodium 136 mmol/L (136-145) 03/25/21 03:08 Potassium 3.8 mmol/L (3.5-5.1) 03/25/21 03:08 Chloride 102 mmol/L (98-107) 03/25/21 03:08 Carbon Dioxide 27 mmol/L (21-32) 03/25/21 03:08 Anion Gap 7.0 (3-11) 03/25/21 03:08 BUN 38 mg/dl (7-18) H 03/25/21 03:08 Creatinine 7.29 mg/dl (0.6-1.2) H* 03/25/21 03:08 Est Cr Clr Drug Dosing 13.3 ml/min 03/25/21 03:08 Est GFR ( Amer) 7.7 ml/min 03/25/21 03:08 Est GFR (Non-Af Amer) 6.6 ml/min 03/25/21 03:08 BUN/Creatinine Ratio 5.1 (10-20) L 03/25/21 03:08 Glucose 138 mg/dl (70-99) H 03/25/21 03:08 Calcium 8.8 mg/dl (8.5-10.1) 03/25/21 03:08 Total Bilirubin 0.4 mg/dl (0.2-1) 03/25/21 03:08 AST 17 U/L (15-37) 03/25/21 03:08 ALT 31 U/L (12-78) 03/25/21 03:08 Alkaline Phosphatase 61 U/L (45-117) 03/25/21 03:08 Total Protein 6.8 gm/dl (6.4-8.2) 03/25/21 03:08 Albumin 3.2 gm/dl (3.4-5.0) L 03/25/21 03:08 Globulin 3.6 gm/dl (2.5-4.0) 03/25/21 03:08 Albumin/Globulin Ratio 0.9 (0.9-2) 03/25/21 03:08 COVID-19 Eval Order Covid19 at [facility] 03/25/21 05:25 Blood Type A Positive 03/25/21 03:08 Antibody Screen NEGATIVE 03/25/21 03:08 Crossmatch See Detail 03/25/21 03:[address] head No acute intracranial abnormality. Chest x-ray as per my interpretation cardiomegaly EKG as per my interpretation : Rate 90, NSR, normal axis, 1 AVB, T wave flattening inferior leads QTC 560
[2021-03-25 06:23] LABS: Magnesium 2.4 mg/dl (1.8-2.4); Troponin I 0.047 ng/ml (0-0.045)
--- NOTE | 2021-03-25 06:53 | CT Scan Report ---
CT SCAN OF THE BRAIN WITHOUT IV CONTRAST CLINICAL HISTORY: Headache. COMPARISON STUDY: CT of the brain dated 12/19/2020. TECHNIQUE: Unenhanced axial CT scan of the brain is performed from the vertex to the skull base. A d ose lowering technique was utilized adhering to the principles of ALARA. CT DOSE: 537.48 mGy.cm FINDINGS: Brain parenchyma: The brain parenchyma is normal in appearance. There is no hemorrhage, mass effect, or evidence of acute territorial ischemia by CT criteria. Rodríguez-white matter differentiation is preser asim. No extra-axial fluid collection is seen. Ventricles, sulci, cisterns: Normal in configuration. Intracranial vasculature: The visualized intracranial vasculature at the skull base is normal in appe arance. Calvarium: Unremarkable. Sinuses and mastoids: The visualized paranasal sinuses are clear. The mastoid air cells are well pneu matized. Orbits: The bony orbits are grossly intact. IMPRESSION: No acute intracranial abnormality. ACT 112: Negative or not required by law. Electronically signed by: North Quintero M.D. 03/25/2021 6:52 AM
[2021-03-25] MEDS: traMADol HCL 50 MG TABLET PO PRN ×2 (07:07→12:21)
[2021-03-25 07:10] LABS: Estimated Average Glucose 183 mg/dl
--- NOTE | 2021-03-25 07:51 | Electrocardiogram Report ---
Test Reason : Blood Pressure : / mmHG Vent. Rate : 092 BPM Atrial Rate : 092 BPM P-R Int : 286 ms QRS Dur : 098 ms QT Int : 458 ms P-R-T Axes : 000 010 007 degrees QTc Int : 566 ms Sinus rhythm with 1st degree A-V block Poor R wave progression, consider anterior SD vs. lead placement vs. LVH Prolonged QT Abnormal ECG When compared with ECG of 19-MAR-2021 14:41, [place] interval has increased Confirmed by Balbir Meek ([id number]) on 03/25/2021 7:50:55 AM Referred By: REFERRED SELF Confirmed By:Balbir Meek
--- NOTE | 2021-03-25 08:03 | XRay Report ---
SINGLE VIEW CHEST CLINICAL HISTORY: Atypical chest pain. FINDINGS: An AP, portable, upright chest radiograph is compared to study dated 03/19/2021. Correlation is made with chest CT dated 08/11/2020. A stent projects over the mediastinum. The heart is enlarged . The pulmonary vasculature is noncongested. The lungs and pleural spaces are clear. No pneumothorax is seen. The bony thorax is grossly intact. IMPRESSION: Cardiomegaly with no acute cardiopulmonary abnormality. ACT 112: Negative or not required by law. Electronically signed by: North Quintero M.D. 03/25/2021 8:02 AM
[2021-03-25] MEDS ORDERED: CARBOHYDRATES FOR HYPOGLYCEMIA PO PRN (11:18)
[2021-03-25] MEDS ORDERED: GLUCAGON FOR INJ 1 MG VIAL SQ PRN (11:18)
[2021-03-25] MEDS ORDERED: PROMETHAZINE HCL 12.5 MG in SODIUM CHLORIDE 0.9% 50 ML IV PRN (11:18)
[2021-03-25] MEDS ORDERED: LORazepam 0.5 MG TAB PO PRN (11:18)
[2021-03-25] MEDS ORDERED: GLUCOSE 10 TABS/TUBE PO PRN (11:18)
[2021-03-25] MEDS ORDERED: hydrOXYzine HCl 25 MG TAB PO PRN (11:18)
[2021-03-25] MEDS ORDERED: NITROGLYCERIN SL 0.4 MG/TAB TAB SL PRN (11:18)
[2021-03-25] MEDS ORDERED: DEXTROSE 50% 50 ML SYRINGE IV PRN (11:18)
[2021-03-25] MEDS ORDERED: GLUCOSE 40% GEL 15 GM TUBE PO PRN (11:18)
[2021-03-25] MEDS: NEPHROCAPS PO SCH (12:10)
[2021-03-25] MEDS: GABAPENTIN 400 MG CAP PO SCH (12:10)
[2021-03-25] MEDS: INSULIN ASPART 100 UNITS/ML 3 ML PEN SC SCH ×3 (12:14→20:38)
--- NOTE | 2021-03-25 12:17 | Nephrology Consultation ---
Date of Consultation March 25, 2021 Assessment & Plan (1) ESRD (end stage renal disease) on dialysis: Saturday patient last dialyzed on Saturday, Electrolytes are within normal range and does not affect to be overtly fluid overloaded Dialyze again on Saturday if still in-house Get the in center dialysis prescription. (2) Chest pain: Managed by primary. Likely related to fluid overload and she was dialysis yesterday. (3) Anemia: Chronic Does not report of any external signs of bleeding. Likely related to renal failure. Continue her on inpatient EPO, as on dialysis. History of Present Illness Reason for Consultation: ESRD patient on hemodialysis, Attending Physician: Ambreen Lutz MD History of Present Illness 35-year-old female, ESRD on HD Saturday,(last hemodialysis on Saturday with no issues). Presented to the ER with nonspecific substernal chest pain and exertional dyspnea) getting worse over the last few days. Is also known to be anemic. No complaints of abdominal pain black tarry stool. Vitals stable. Potassium within normal limits Nephrology: For hemodialysis support during the present hospital stay. Allergies Allergy/AdvReac Type Severity Reaction Status Date / Time cefaclor Allergy Intermediate Rash Verified 03/17/21 02:12 amoxicillin AdvReac Mild VOMITING Verified 03/17/21 02:12 clavulanic acid AdvReac Mild VOMITING Verified 03/17/21 02:12 Home Medications Medication Instructions Recorded Confirmed Type gabapentin 400 mg capsule 400 - 800 mg PO DIRECTED 01/24/19 03/25/21 History (Neurontin) ferric citrate 210 mg iron tablet 420 mg PO DIRECTED 10/17/19 03/25/21 History (Auryxia) carvedilol 3.125 mg tablet 3.125 mg PO BID 12/21/19 03/25/21 History hydroxyzine HCl 25 mg tablet 25 mg PO DAILY PRN 04/21/20 03/25/21 History calcium acetate(phosphat bind) 667 2,001 mg PO WM 06/22/20 03/25/21 History mg capsule albuterol sulfate 90 mcg/actuation 2 puff INHALATION QID PRN 08/01/20 03/25/21 History aerosol inhaler sertraline 100 mg tablet 150 mg PO QAM 08/02/20 03/25/21 History amlodipine 10 mg tablet 10 mg PO HS 08/10/20 03/25/21 History vitamin B complex-vitamin C-folic 1 tab PO QAM 08/10/20 03/25/21 History acid 0.8 mg tablet (Renal Vitamin) warfarin 2.5 mg tablet 2.5 - 5 mg PO DIRECTED 01/30/21 03/25/21 History cinacalcet 30 mg tablet (Sensipar) 60 mg PO PM 03/06/21 03/25/21 History lorazepam 0.5 mg tablet 0.5 mg PO DAILY PRN 03/06/21 03/25/21 History medroxyprogesterone 150 mg/mL 150 mg IM Q90D 03/06/21 03/25/21 History intramuscular suspension trazodone 150 mg tablet 150 mg PO HS 03/06/21 03/25/21 History Patient History Medical History AMS (altered mental status) Anemia Anemia due to end stage renal disease Anxiety and depression Asthma "BEEN A WHILE" SINCE USING LAST RESCUE INHALER AVF (arteriovenous fistula) CKD (chronic kidney disease) stage V requiring chronic dialysis Dialysis patient SATURDAY/SAT/SATURDAY AT [facility] [place] DM2 (diabetes mellitus, type 2) CONTROLLED WITH DIET AND EXERCISE ESRD (end stage renal disease) on dialysis Fistula LEFT ARM FSGS (focal segmental glomerulosclerosis) DX INITIALLY 2012 (CAUSING ESRD 2012) GERD (gastroesophageal reflux disease) HTN (hypertension) Migraine Peripheral neuropathy Prolonged QT interval Restless leg syndrome Surgical History H/O eye surgery LASER SURGERY LEFT H/O hernia repair ABDOMINAL WALL H/O knee surgery LEFT KNEE X 2 H/O tubal ligation H/O: X 2 History of cardiac cath 2016 NO STENTS History of cholecystectomy History of colonoscopy History of tooth extraction three TOOTH Kidney transplant recipient 2013 AT [facility] Family History Grandmother Hx of CABG Mother Diabetes Father Crohn's disease Grandfather (Maternal) Diabetes Uncle Diabetes Social History Smoking Status: Current every day smoker Tobacco Type: Cigarettes Cigarettes Per Day: 20; Second Hand Exposure: No; Do You Dip or Chew Tobacco: No; Hx Alcohol Use: Yes Alcohol type: hard liquor Alcohol Intake Frequency Comment: q3 months Hx Substance Use: Yes Last Used Substance: Hours (ago) Preferred Language: Ethiopian Communication Ability: Effective Trace Evidence Technician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 Beliefs That Will Affect Care: None marital status: Current Living Situation: Other Current Living Situation Comment: Friend How many Children do You have: 2 Other Information That Helps Us Care for You: No Feels Safe at Home: Yes Safety Concerns: Feels Safe At This Time Assistive Devices: None Review of Systems Review of Systems: Complains of chest pain substernal in nature with no shortness of breath or pedal edema Physical Exam Physical Exam: GENERAL: Awake, alert, oriented, no distress. Normal affect. Normal speech. VITAL SIGNS: Appears stable. HEENT: Mucous membrane moist. NECK: Supple. No jugular venous distention. CHEST: Bilateral clear to auscultation. CARDIOVASCULAR: S1, S2 regular. ABDOMEN: Soft, nontender and obese. EXTREMITIES: Shows no edema.AV fistula with good bruit and thrill. Results & Data ([facility]) Vital Signs (Past 12 Hours) Vital Signs Temp Pulse Pulse Resp BP BP Pulse Ox 03/25/21 10:00 87 16 136/89 97 03/25/21 09:45 82 14 122/82 97 03/25/21 09:30 81 14 131/93 99 03/25/21 09:15 81 16 135/79 98 03/25/21 09:00 88 16 128/80 96 03/25/21 08:45 86 14 134/87 93 03/25/21 08:30 80 18 100/74 91 03/25/21 08:15 79 14 100/76 92 03/25/21 08:00 82 14 121/80 96 03/25/21 07:45 87 18 119/81 93 03/25/21 07:35 36.9 C 85 16 115/77 94 03/25/21 07:30 84 14 125/77 93 03/25/21 07:15 85 14 125/85 93 03/25/21 07:00 85 20 129/88 92 03/25/21 06:35 36.7 C 85 121/84 99 03/25/21 06:31 88 13 100 03/25/21 06:05 36.6 C 85 20 128/84 100 07/31/21 06:00 84 15 122/76 100 03/25/21 05:50 36.8 C 88 20 114/84 99 03/25/21 05:32 85 12 119/76 100 03/25/21 05:30 36.8 C 85 20 119/76 100 03/25/21 05:00 84 15 123/77 100 03/25/21 04:30 91 H 13 104/68 100 03/25/21 04:00 86 12 123/82 93 03/25/21 03:30 89 15 108/79 94 03/25/21 03:12 90 20 107/92 98 03/25/21 03:00 95 H 20 107/92 96 03/25/21 02:30 90 16 126/86 99 03/25/21 02:01 89 17 100 03/25/21 01:50 37.1 C 91 H 20 141/86 H 100 Laboratory Results 03/25/21 03:08 03/25/21 03:08 (1) Anemia Anemia type: unspecified type Qualified Code(s): D64.9 - Anemia, unspecified (2) Chest pain Chest pain type: unspecified Qualified Code(s): R07.9 - Chest pain, unspecified
[2021-03-25 12:34] LABS: Hemoglobin 7.9 g/dL (12.0-16.0); Reticulocyte % 1.8 % (0.5-2.0); Reticulocytes # 0.05 10^6/uL (0.02-0.10)
[2021-03-25 13:03] LABS: Ferritin 1038.8 ng/ml (8-388); Troponin I 0.046 ng/ml (0-0.045)
[2021-03-25] MEDS ORDERED: AURYXIA PO PRN ×2 (13:44→14:00)
[2021-03-25] MEDS: CALCIUM ACETATE 667 MG CAP/TAB PO SCH ×2 (14:09→17:00)
[2021-03-25] MEDS: carvediloL 3.125 MG TAB PO SCH ×2 (14:09→20:34)
[2021-03-25] MEDS: SERTRALINE HCL 50 MG TABLET PO SCH (14:10)
[2021-03-25] MEDS ORDERED: GABAPENTIN 400 MG CAP PO SCH (16:30)
[2021-03-25] MEDS: CINACALCET HCL 30 MG TAB PO SCH (16:59)
[2021-03-25] MEDS ORDERED: WARFARIN SOD 2.5 MG TAB PO ONE (17:26)
--- NOTE | 2021-03-25 17:32 | Hospitalist Progress Note ---
Date of Service March 25, 2021 Assessment & Plan (1) Symptomatic anemia: Plan: Present on admission with SOB, weakness and chest pain Hgb on admission 6.3 received 1 unit PRBC given today Repeat hgb today 7.9, then dropped 6.9 Will do type and crossed and transfuse an additional 1 unit PRBC later Continue monitor H/H Chest pain Troponin on admission 0.047, then 0.46 EKG showed no ischemic changes ECHO showed no LV wall motion abnormality with EF 60-65% Continue Carvedilol Stable End-stage renal disease (ESRD): On HD on MWF, h/o FSGS, s/p failed renal transplantation Appreciate Nephrology Input Continue home meds Next dialysis schedule on Saturday Elevated troponin: Chronic elevation of Troponin Likely due to renal Insufficiency and demand ischemia due possible due to low hemoglobin DM2 (diabetes mellitus, type 2): Most recent A1c 8 on 03/25/21 Not on any DM meds Will defer to the PCP to start on DM med Continue monitor BS AV draft thrombosis Coumadin on hold due to low hgb 6.9 Follow up with the [facility] Migraine: Continue Imitrex PRN Depression: On Zoloft and trazodone DVT Px SCDs due to low hgb Code Status Full code Disposition Expect to discharge home Admission and Anticipated Discharge Date Admission Date: March 25, 2021 Subjective Pt was seen and examined for follow of chest pain and weakness Sitting in the the bed with no acute distress watching a show on her computer She said that she continues feeling the same with weakness, headache and pain Physical Exam Physical Exam: General Appearance:Obese, no apparent distress Head: normocephalic, Atraumatic Eyes: normal inspection, EOMI Neck: supple, Trachea midline Respiratory/Chest: Normal breath sounds, CTA, No accessory muscle use Cardiovascular: S1, S2, No murmur Abdomen/GI:Soft, Non tender, Bowel sounds present Extremities/Musculoskelatal:normal inspection, no edema Neurologic/Psych:AAOX3, grossly no focal neurological deficits Skin: normal color, warm Results & Data Results & Data ([facility]) Vital Signs (Past 12 Hours) Vital Signs Temp Pulse Pulse Pulse Resp BP BP 03/25/21 15:43 72 03/25/21 15:42 03/25/21 15:28 36.7 C 76 22 113/75 03/25/21 12:40 36.8 C 85 79 20 131/83 03/25/21 11:18 36.8 C 79 20 131/83 03/25/21 10:00 87 16 136/89 03/25/21 09:45 82 14 122/82 03/25/21 09:30 81 14 131/93 03/25/21 09:15 81 16 135/79 03/25/21 09:00 88 16 128/80 03/25/21 08:45 86 14 134/87 03/25/21 08:30 80 18 100/74 03/25/21 08:15 79 14 100/76 03/25/21 08:00 82 14 121/80 03/25/21 07:45 87 18 119/81 03/25/21 07:35 36.9 C 85 16 115/77 03/25/21 07:30 84 14 125/77 03/25/21 07:15 85 14 125/85 03/25/21 07:00 85 20 129/88 03/25/21 06:35 36.7 C 85 121/84 03/25/21 06:31 88 13 03/25/21 06:05 36.6 C 85 20 128/84 03/25/21 06:00 84 15 122/76 03/25/21 05:50 36.8 C 88 20 114/84 03/25/21 05:32 85 12 119/76 Pulse Ox Pulse Ox 03/25/21 15:43 03/25/21 15:42 96 03/25/21 15:28 96 03/25/21 12:40 97 03/25/21 11:18 97 97 03/25/21 10:00 97 03/25/21 09:45 97 03/25/21 09:30 99 03/25/21 09:15 98 03/25/21 09:00 96 03/25/21 08:45 93 03/25/21 08:30 91 03/25/21 08:15 92 03/25/21 08:00 96 03/25/21 07:45 93 03/25/21 07:35 94 03/25/21 07:30 93 03/25/21 07:15 93 03/25/21 07:00 92 03/25/21 06:35 99 03/25/21 06:31 100 03/25/21 06:05 100 03/25/21 06:00 100 03/25/21 05:50 99 03/25/21 05:32 100
[2021-03-25] MEDS: AURYXIA PO SCH (17:34)
[2021-03-25] MEDS ORDERED: traMADol HCL 50 MG TABLET PO PRN (18:09)
[2021-03-25] MEDS: traZODone HCL 50 MG TAB PO SCH (20:34)
[2021-03-25] MEDS: amLODIPine BESYLATE 5 MG TAB PO SCH (20:34)
[2021-03-26 06:28] LABS: Basophils # (auto) 0.02 K/uL (0-0.2); Basophils % (auto) 0.3 %; Eosinophils # (auto) 0.21 K/uL (0-0.5); Hematocrit (blood only) 28.4 % (37-47); Hemoglobin 9.2 g/dL (12.0-16.0); Immature Granulocytes # (auto) 0.02 K/uL (0.00-0.02); Immature Granulocytes % (auto) 0.3 %; Lymphocytes # (auto) 1.17 K/uL (1.2-3.4); Lymphocytes % (auto) 16.6 %; Mean Corpuscular Hemoglobin 30.7 pg (25-34); Mean Corpuscular Hgb Conc 32.4 g/dL (32-36); Mean Corpuscular Volume 94.7 fL (80-100); Mean Platelet Volume 8.6 fL (7.4-10.4); Monocytes # (auto) 0.39 K/uL (0.11-0.59); Monocytes % (auto) 5.5 %; Neutrophils # (auto) 5.23 K/uL (1.4-6.5); Neutrophils % (auto) 74.3 %; Platelet Count 193 K/uL (130-400); RDW Coefficient of Variation 18.6 % (11.5-14.5); RDW Standard Deviation 63.9 fL (36.4-46.3); White Blood Count 7.04 K/uL (4.8-10.8)
[2021-03-26 06:37] LABS: INR 1.4 (0.9-1.1); Prothrombin Time 13.8 Seconds (9.0-12.0)
[2021-03-26 07:08] LABS: Calcium 8.7 mg/dl (8.5-10.1); Creatinine Clr Calc Pharmacy 9.8 ml/min; Est GFR (African American) 5.4 ml/min; Est GFR (Non-African American) 4.7 ml/min
[2021-03-26] MEDS: INSULIN ASPART 100 UNITS/ML 3 ML PEN SC SCH ×4 (08:24→20:05)
[2021-03-26] MEDS: GABAPENTIN 400 MG CAP PO SCH (08:24)
[2021-03-26] MEDS: CALCIUM ACETATE 667 MG CAP/TAB PO SCH ×3 (08:43→17:25)
[2021-03-26] MEDS: AURYXIA PO SCH ×3 (08:43→17:26)
[2021-03-26] MEDS: NEPHROCAPS PO SCH (08:44)
[2021-03-26] MEDS: SERTRALINE HCL 50 MG TABLET PO SCH (08:44)
[2021-03-26] MEDS: carvediloL 3.125 MG TAB PO SCH ×2 (08:44→20:11)
--- NOTE | 2021-03-26 10:41 | Nephrology Progress Note ---
Date of Service March 26, 2021 Assessment & Plan (1) ESRD (end stage renal disease) on dialysis: Plan: ESRD -HD MWF , last dialyzed on Saturday, Electrolytes are within normal range and does not affect to be overtly fluid overloaded Dialyze again on Saturday if still in-house Get the in center dialysis prescription. (2) Chest pain: Plan: Managed by primary. Likely NOT related to fluid overload and she was dialysis yesterday. Resolved. (3) Anemia: Plan: Chronic Does not report of any external signs of bleeding. 1 unit PRBC transfused yesterday. Continue her on inpatient EPO, as on dialysis. Admission and Anticipated Discharge Date Admission Date: March 25, 2021 Subjective lying comfortably on bed,no chest pain, no SOB. Review of Systems Review of Systems: All systems reviewed & are unremarkable except as noted in HPI & below Physical Exam Physical Exam: General exam: Obese,Appears comfortable, no acute distress HEENT: Pupils are equal and reactive to light Neck: No JVD, neck is supple trachea is midline Respiratory system: Clear breath sounds bilaterally. Gastrointestinal: Abdomen is soft, non distended, non tender, bowel sounds are present CVS: Regular rate and rhythm. No murmurs, rubs or gallops Musculoskeletal: No joint or muscle tenderness Extremities: Non tender, Trace edema, peripheral pulses are present Neuro: Oriented, no tremors, no focal neurological deficits Skin: No rashes Results & Data ([facility]) Vital Signs (Past 12 Hours) Vital Signs Temp Pulse Pulse Pulse Resp BP BP 03/26/21 07:09 78 03/26/21 07:03 36.7 C 78 18 122/79 03/26/21 03:23 36.5 C 73 17 119/79 03/25/21 23:40 36.9 C 73 16 132/89 Pulse Ox 03/26/21 07:09 03/26/21 07:03 94 03/26/21 03:23 96 03/25/21 23:40 92 Laboratory Results 03/26/21 06:17 03/26/21 06:17 (1) Anemia Anemia type: unspecified type Qualified Code(s): D64.9 - Anemia, unspecified (2) Chest pain Chest pain type: unspecified Qualified Code(s): R07.9 - Chest pain, unspecified
[2021-03-26] MEDS: GABAPENTIN 300 MG CAP PO SCH ×2 (14:52→20:11)
[2021-03-26] MEDS: CINACALCET HCL 30 MG TAB PO SCH (17:26)
[2021-03-26] MEDS: amLODIPine BESYLATE 5 MG TAB PO SCH (20:11)
[2021-03-26] MEDS: traZODone HCL 50 MG TAB PO SCH (21:59)
--- NOTE | 2021-03-26 23:08 | Hospitalist Progress Note ---
Date of Service March 26, 2021 Assessment & Plan (1) Symptomatic anemia: Plan: Present on admission with SOB, weakness and chest pain Hgb on admission 6.3. Repeat Hgb today 7.9, then dropped 6.9 yesterday this is crazy 1 Received 2 unit PRBC during this admission Hemoglobin 9.2 today Chest pain Troponin on admission 0.047, then 0.46 EKG showed no ischemic changes ECHO showed no LV wall motion abnormality with EF 60-65% Continue Carvedilol Resolved End-stage renal disease (ESRD): On HD on MWF, h/o FSGS, s/p failed renal transplantation Appreciate Nephrology Input Continue home meds Next dialysis schedule for tomorrow Elevated troponin: Chronic elevation of Troponin Likely due to renal Insufficiency and demand ischemia due possible due to low hemoglobin DM2 (diabetes mellitus, type 2): Most recent A1c 8 on 03/25/21 Not on any DM meds Will defer to the PCP to start on DM med Continue monitor BS AV draft thrombosis Coumadin was on hold due to low hgb 6.9 Will resume Coumadin Follow up with the coag clinic Migraine: Continue Imitrex PRN Depression: On Zoloft and trazodone DVT Px SCDs due to low hgb Code Status Full code Disposition Expect to discharge home tomorrow Admission and Anticipated Discharge Date Admission Date: March 25, 2021 Subjective Patient was seen and examined for follow-up of anemia Denies any in bed with no distress sleeping Upon entering I call her name and she was able to wake up Nurse said patient has been sleeping all day she continues asking for tramadol for pain Yesterday pharmacy mentioned about her gabapentin that was not renal dosage Patient said that she is taking the gabapentin for restless leg syndrome Currently denies any chest pain, palpitation, dizziness, shortness of breath. Physical Exam Physical Exam: General Appearance:Obese, no apparent distress Head: normocephalic, Atraumatic Eyes: normal inspection, EOMI Neck: supple, Trachea midline Respiratory/Chest: Normal breath sounds, CTA, No accessory muscle use Cardiovascular: S1, S2, No murmur Abdomen/GI:Soft, Non tender, Bowel sounds present Extremities/Musculoskelatal:normal inspection, no edema Neurologic/Psych:AAOX3, grossly no focal neurological deficits Skin: normal color, warm Results & Data Results & Data ([facility]) Vital Signs (Past 12 Hours) Vital Signs Temp Pulse Pulse Resp BP Pulse Ox 03/26/21 22:52 70 03/26/21 19:47 36.6 C 77 20 119/79 93 03/26/21 16:41 75 03/26/21 16:10 36.5 C 77 18 118/78 94 03/26/21 12:26 36.8 C 86 18 108/62 98
[2021-03-27 06:32] LABS: Hematocrit (blood only) 26.6 % (37-47); Hemoglobin 8.8 g/dL (12.0-16.0); Mean Corpuscular Hemoglobin 30.4 pg (25-34); Mean Corpuscular Hgb Conc 33.1 g/dL (32-36); Platelet Count 159 K/uL (130-400); Red Blood Count 2.89 M/uL (4.2-5.4)
[2021-03-27 07:04] LABS: BUN Creatinine Ratio 5.1 (10-20); Calcium 8.8 mg/dl (8.5-10.1); Creatinine Clr Calc Pharmacy 8.4 ml/min; Est GFR (African American) 4.5 ml/min; Est GFR (Non-African American) 3.8 ml/min; Potassium 4.4 mmol/L (3.5-5.1)
[2021-03-27] MEDS ORDERED: SODIUM CHLORIDE 0.9% 1000ML 1,000 ML IV PRN (08:05)
[2021-03-27] MEDS: INSULIN ASPART 100 UNITS/ML 3 ML PEN SC SCH ×4 (08:11→21:49)
[2021-03-27] MEDS: carvediloL 3.125 MG TAB PO SCH ×2 (08:11→21:49)
[2021-03-27] MEDS: NEPHROCAPS PO SCH (08:11)
[2021-03-27] MEDS: CALCIUM ACETATE 667 MG CAP/TAB PO SCH ×3 (08:11→18:23)
[2021-03-27] MEDS: GABAPENTIN 300 MG CAP PO SCH ×3 (08:11→21:49)
[2021-03-27] MEDS: SERTRALINE HCL 50 MG TABLET PO SCH (08:15)
[2021-03-27] MEDS: AURYXIA PO SCH ×3 (08:15→18:23)
[2021-03-27] MEDS ORDERED: IRON SUCROSE 100 MG in SYRINGE 0 ML IV ONE (08:15)
[2021-03-27] MEDS ORDERED: EPOETIN ALFA 4,000 UNIT/ML VIAL IV ONE (08:30)
[2021-03-27] MEDS ORDERED: EPOETIN ALFA 20,000 UNITS/ML VIAL IV ONE (08:30)
[2021-03-27] MEDS ORDERED: HEPARIN SOD (PORCINE) 1000 UNIT/ML IV SCH (09:00)
[2021-03-27] MEDS: HEPARIN SOD (PORCINE) 1000 UNIT/ML IV SCH ×2 (15:38→15:40)
--- NOTE | 2021-03-27 17:02 | Nephrology Progress Note ---
Date of Service March 27, 2021 Assessment & Plan (1) ESRD (end stage renal disease) on dialysis: Plan: ESRD -HD MWF For HD today Electrolytes are within normal range and does not affect to be overtly fluid overloaded Advised RN of challenges using new/old AVF (2) Chest pain: Plan: Managed by primary; still happening intermittently, even w/ improved hemoglobin (3) Anemia: Plan: Chronic but improved Does not report of any external signs of bleeding. 1 unit PRBC transfused this admissoin Continue her on inpatient EPO, as on dialysis. Admission and Anticipated Discharge Date Admission Date: March 25, 2021 Subjective still w/ chest pain occasoinally mid upper sternum radiates outward BL; no relatoin to food or position; still sob; no pain, no n/v Review of Systems Review of Systems: All systems reviewed & are unremarkable except as noted in Subjective Physical Exam Constitutional: well developed and + obese Eyes: EOM intact bilaterally ENMT: Ears: no external ear abnormality Nose: no external nose abnormality Mouth: + dry oral mucous membranes Neck: no nuchal rigidity Respiratory: normal respiratory effort Auscultation: + diminished lung sounds Cardiovascular: RRR, no murmur, no edema Extremities: + AV fistula (BLUE, some L arm edema) Gastrointestinal (Abdomen): Inspection/Auscultation: normal bowel sounds Percussion/Palpation: abdomen soft; abdomen nontender Musculoskeletal: Extremities: strength 5/5 throughout Skin: no rashes, warm and dry Neurologic: sandy, fluent speech, no tremor Results & Data ([facility]) Vital Signs (Past 12 Hours) Vital Signs Temp Pulse Pulse Pulse Resp BP BP 03/27/21 16:20 78 179/94 H 03/27/21 16:00 75 188/87 H 03/27/21 15:40 74 186/92 H 03/27/21 15:20 70 193/81 H 03/27/21 15:00 69 171/87 H 03/27/21 14:45 70 164/80 H 03/27/21 14:25 36.7 C 78 03/27/21 11:17 36.7 C 77 18 122/77 03/27/21 07:28 36.8 C 64 17 124/80 Pulse Ox 03/27/21 16:20 03/27/21 16:00 03/27/21 15:40 03/27/21 15:20 03/27/21 15:00 03/27/21 14:45 03/27/21 14:25 03/27/21 11:17 98 03/27/21 07:28 96 Laboratory Results 03/27/21 06:07 03/27/21 06:07 (1) Chest pain Chest pain type: unspecified Qualified Code(s): R07.9 - Chest pain, unspecified (2) Anemia Anemia type: unspecified type Qualified Code(s): D64.9 - Anemia, unspecified
[2021-03-27] MEDS: CINACALCET HCL 30 MG TAB PO SCH (18:22)
--- NOTE | 2021-03-27 21:32 | Hospitalist Progress Note ---
Date of Service March 27, 2021 Assessment & Plan (1) Symptomatic anemia: Plan: Present on admission with SOB, weakness and chest pain Hgb on admission 6.3. Repeat Hgb today 7.9, then dropped 6.9 yesterday this is crazy 1 Received 2 unit PRBC during this admission Hemoglobin 8.8 today Chest pain Troponin on admission 0.047, then 0.46 EKG showed no ischemic changes ECHO showed no LV wall motion abnormality with EF 60-65% Continue Carvedilol End-stage renal disease (ESRD): On HD on MWF, h/o FSGS, s/p failed renal transplantation Appreciate Nephrology Input Continue home meds Had hemodialysis done today and Next dialysis schedule for Saturday Elevated troponin: Chronic elevation of Troponin Likely due to renal Insufficiency and demand ischemia due possible due to low hemoglobin DM2 (diabetes mellitus, type 2): Most recent A1c 8 on 03/25/21 Not on any DM meds Will defer to the PCP to start on DM med Continue monitor BS AV draft thrombosis Coumadin was on hold due to low hgb 6.9 Will resume Coumadin Follow up with the coag clinic Migraine: Continue Imitrex PRN Restless Leg Has been on gabapentin with a total of 1200 mg daily Spoke to pharmacy recommended a lower renal dose. The maxl dose on HD pt is 300 mg 3x week, given afterhemodialysis Will decrease gabapentin to 300 mg 3 times daily Her Physician will need to continue to titrate off to 300mg 3xweek Depression On Zoloft and trazodone Stable DVT Px SCDs due to low hgb Code Status Full code Disposition Expect to discharge home tomorrow Admission and Anticipated Discharge Date Admission Date: March 25, 2021 Subjective Patient was seen and examined for follow-up of anemia Sitting at the edge of the bed watching an educational continue in her tablet she is scheduled to get hemodialysis later Does not look in distress Physical Exam Physical Exam: General Appearance:Obese, no apparent distress Head: normocephalic, Atraumatic Eyes: normal inspection, EOMI Neck: supple, Trachea midline Respiratory/Chest: Normal breath sounds, CTA, No accessory muscle use Cardiovascular: S1, S2, No murmur Abdomen/GI:Soft, Non tender, Bowel sounds present Extremities/Musculoskelatal:normal inspection, no edema Neurologic/Psych:AAOX3, grossly no focal neurological deficits Skin: normal color, warm Results & Data Results & Data ([facility]) Vital Signs (Past 12 Hours) Vital Signs Temp Pulse Pulse Pulse Resp BP BP 03/27/21 19:55 37.2 C 80 20 100/63 03/27/21 19:40 36.9 C 75 03/27/21 19:00 75 186/80 H 03/27/21 18:40 75 187/79 H 03/27/21 18:20 76 142/100 H 03/27/21 17:40 76 179/81 H 03/27/21 17:20 76 188/76 H 03/27/21 17:00 78 180/88 H 03/27/21 16:40 75 195/80 H 03/27/21 16:20 78 179/94 H 03/27/21 16:00 75 188/87 H 03/27/21 15:40 74 186/92 H 03/27/21 15:20 70 193/81 H 03/27/21 15:00 69 171/87 H 03/27/21 14:45 70 164/80 H 03/27/21 14:25 36.7 C 78 03/27/21 11:17 36.7 C 77 18 122/77 BP Pulse Ox 03/27/21 19:55 93 03/27/21 19:40 198/75 H 03/27/21 19:00 03/27/21 18:40 03/27/21 18:20 03/27/21 17:40 03/27/21 17:20 03/27/21 17:00 03/27/21 16:40 03/27/21 16:20 03/27/21 16:00 03/27/21 15:40 03/27/21 15:20 03/27/21 15:00 03/27/21 14:45 03/27/21 14:25 03/27/21 11:17 98
[2021-03-27] MEDS: traZODone HCL 50 MG TAB PO SCH (21:49)
[2021-03-27] MEDS: amLODIPine BESYLATE 5 MG TAB PO SCH (21:49)
[2021-03-28] MEDS: SERTRALINE HCL 50 MG TABLET PO SCH (08:00)
[2021-03-28] MEDS: AURYXIA PO SCH (08:00)
[2021-03-28] MEDS: NEPHROCAPS PO SCH (08:01)
[2021-03-28] MEDS: GABAPENTIN 300 MG CAP PO SCH (08:02)
[2021-03-28] MEDS: CALCIUM ACETATE 667 MG CAP/TAB PO SCH (08:02)
[2021-03-28] MEDS: carvediloL 3.125 MG TAB PO SCH (08:04)
[2021-03-28] MEDS: INSULIN ASPART 100 UNITS/ML 3 ML PEN SC SCH (08:06)
[2021-03-28 08:55] LABS: Hematocrit (blood only) 27.9 % (37-47); Hemoglobin 9.2 g/dL (12.0-16.0); Mean Corpuscular Hemoglobin 31.4 pg (25-34); Mean Corpuscular Volume 95.2 fL (80-100); Platelet Count 161 K/uL (130-400); RDW Coefficient of Variation 17.2 % (11.5-14.5); RDW Standard Deviation 59.9 fL (36.4-46.3); Red Blood Count 2.93 M/uL (4.2-5.4); White Blood Count 5.39 K/uL (4.8-10.8)
[2021-03-28 09:35] LABS: BUN Creatinine Ratio 3.9 (10-20); Calcium 8.4 mg/dl (8.5-10.1); Est GFR (Non-African American) 8.6 ml/min; Potassium 3.8 mmol/L (3.5-5.1)
--- NOTE | 2021-03-28 10:53 | Discharge Summary ---
Date of Service March 28, 2021 Admission HPI Per Admitting Provider History obtained from patient and records. 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 Recent confinement November 2020 for hypotension and confusion, toxic encephalopathy attributed to home medications. Patient seen at the ER last week for sore throat, cough, worsening shortness of breath symptoms with exertion for about 2 weeks partially responsive to outpatient steroid and antibiotic courses.. Soft tissue neck CT showed prominent adenoids and lingual tonsils. Hemoglobin noted to be 7.4 during visit with note of progressive decrease from baseline of 11 over the last few weeks. Worsening substernal pain and exertional shortness of breath the last few days. Patient advised by laborer cheesemaking to go to ER if symptoms persistent as progressive anemia over the last few weeks may be contributory to her symptoms. Patient denies abdominal pain/flank pain, black/bloody stools, or unusual extremity swelling. Transient headache symptoms yesterday after patient received news of [facility] er's confinement. Patient consulted ER. 1 unit packed RBC transfused for hemoglobin of 6.3 Medical History as above Hemodialysis Saturday Surgical History : Vascular procedures, section, cystoscopy, knee surgery, eye surgery, BTL, renal biopsy, kidney transplant, kidney transplant, thrombectomy Family History : SLE, Crohn's disease, high blood pressure, depression Personal/Social history : Few cigarettes a day, no EtOH intake, currently unemployed Admission Exam Per Admitting Provider GENERAL: Comfortable, obese, looks older than stated age, no respiratory distress SKIN: Pallor,, warm HEENT: Pale palpebral conjunctivae, no ptosis, dry buccal mucosa NECK : Supple, short neck, no tenderness CHEST : Decreased breath sounds, no tenderness HEART : RRR, no obvious murmurs ABDOMEN: Some distention, nontender RECTAL : Intact sphincter, brown stool (FOBT negative) EXTREMITIES : Minimal LE swelling, no LE tenderness, upper extremity AV grafts, no other conspicuous deformities noted NEUROLOGIC : Coherent, no facial asymmetry, no other gross focality Principal Diagnosis Symptomatic anemia Chest pain End-stage renal disease (ESRD): Chronic elevation of Troponin DM2 (diabetes mellitus, type 2): AV draft thrombosis Migraine: Restless Leg Depression Discharge Data Allergies Allergy/AdvReac Type Severity Reaction Status Date / Time cefaclor Allergy Intermediate Rash Verified 03/17/21 02:12 amoxicillin AdvReac Mild VOMITING Verified 03/17/21 02:12 clavulanic acid AdvReac Mild VOMITING Verified 03/17/21 02:12 Consultations 03/25/21 05:18 ED Decision to Admit Stat 03/25/21 11:18 Consult Nephrology Routine Ordered Studies 03/25/21 06:06 CT head/brain wo con Stat CT SCAN OF THE BRAIN WITHOUT IV CONTRAST CLINICAL HISTORY: Headache. COMPARISON STUDY: CT of the brain dated 12/19/2020. TECHNIQUE: Unenhanced axial CT scan of the brain is performed from the vertex to the skull base. A dose lowering technique was utilized adhering to the principles of ALARA. CT DOSE: 537.48 mGy.cm FINDINGS: Brain parenchyma: The brain parenchyma is normal in appearance. There is no hemorrhage, mass effect, or evidence of acute territorial ischemia by CT criteria. Rodríguez-white matter differentiation is preserved. No extra-axial fluid collection is seen. Ventricles, sulci, cisterns: Normal in configuration. Intracranial vasculature: The visualized intracranial vasculature at the skull base is normal in appearance. Calvarium: Unremarkable. Sinuses and mastoids: The visualized paranasal sinuses are clear. The mastoid air cells are well pneumatized. Orbits: The bony orbits are grossly intact. IMPRESSION: No acute intracranial abnormality. ACT 112: Negative or not required by law. Electronically signed by: North Quintero M.D. 03/25/2021 6:52 AM Dictated: 03/25/21 0648Transcribed: 03/25/21 0648 SINGLE VIEW CHEST CLINICAL HISTORY: Atypical chest pain. FINDINGS: An AP, portable, upright chest radiograph is compared to study dated 03/19/2021. Correlation is made with chest CT dated 08/11/2020. A stent projects over the mediastinum. The heart is enlarged. The pulmonary vasculature is noncongested. The lungs and pleural spaces are clear. No pneumothorax is seen. The bony thorax is grossly intact. IMPRESSION: Cardiomegaly with no acute cardiopulmonary abnormality. ACT 112: Negative or not required by law. Electronically signed by: North Quintero M.D. 03/25/2021 8:02 AM Dictated: 03/25/21800Transcribed: 03/25/21 08 Hospital Course (1) Symptomatic anemia: Present on admission with SOB, weakness and chest pain Hgb on admission 6.3. Repeat Hgb today 7.9, then dropped 6.9 yesterday this is crazy 1 Received 2 unit PRBC during this admission Hemoglobin 9.2 on 03/28/21 Chest pain Troponin on admission 0.047, then 0.46 EKG showed no ischemic changes ECHO showed no LV wall motion abnormality with EF 60-65% Continue Carvedilol End-stage renal disease (ESRD): On HD on MWF, h/o FSGS, s/p failed renal transplantation Appreciate Nephrology Input Continue home meds Had hemodialysis done today and Next dialysis schedule for Saturday Elevated troponin: Chronic elevation of Troponin Likely due to renal Insufficiency and demand ischemia due possible due to low hemoglobin DM2 (diabetes mellitus, type 2): Most recent A1c 8 on 03/25/21 Not on any DM meds Will defer to the PCP to start on DM med Continue monitor BS AV draft thrombosis Coumadin was on hold due to low hgb 6.9 Will resume Coumadin Follow up with the coag clinic Migraine: Continue Imitrex PRN Restless Leg Has been on gabapentin with a total of 1200 mg daily Spoke to pharmacy recommended a lower renal dose. The maxl dose on HD pt is 300 mg 3x week, given afterhemodialysis Will decrease gabapentin to 300 mg 3 times daily Her Physician will need to continue to titrate off to 300mg 3xweek Depression On Zoloft and trazodone Stable DVT Px SCDs due to low hgb Code Status Full code Disposition Expect to discharge home today Total Time Total Time Spent Total Time Spent (In Minutes): 35 minutes Discharge Plan Discharge Items Patient Disposition: Home - Self-Care Reason For Visit: ANEMIA,CP Discharge Diagnosis: Symptomatic anemia Chest pain End-stage renal disease (ESRD): Chronic elevation of Troponin DM2 (diabetes mellitus, type 2): AV draft thrombosis Migraine: Restless Leg Depression Activity: Resume your previous activity Non-emergency contact: Primary Care Provider Call non-emergency contact if: you have any medication questions Follow-up/Referrals: Adolph Aldridge MD [Primary Care Provider] - Diet: Dialysis Renal Addtl Attending Provider Instructions: Follow up with your primary care provider Dr. Aldridge on 04/03/21 @ 3PM Your next dialysis is scheduled for tomorrow Follow up with the coumadin clinic to monitor your PT/INR Your physician will continue taper gradually your gabapentin to thhe renal dose Check CBC in 1 week to monitor your hemoglobin Pending Studies at Discharge: No Stand-Alone Forms: My [facility] Adisn, Smoking Cessation Medications and DC Order Prescriptions: Continued calcium acetate(phosphat bind) 667 mg capsule 2,001 mg PO WM RF: 0 sertraline 100 mg tablet 150 mg PO QAM RF: 0 Auryxia 210 mg iron tablet 420 mg PO DIRECTED RF: 0 carvedilol 3.125 mg tablet 3.125 mg PO BID RF: 0 hydroxyzine HCl 25 mg tablet 25 mg PO DAILY PRN (Reason: Anxiety and before Dialysis) RF: 0 albuterol sulfate 90 mcg/actuation HFA aerosol inhaler 2 puff INHALATION QID PRN (Reason: Shortness Of Breath) RF: 0 amlodipine 10 mg Tablet 10 mg PO HS RF: 0 Renal Vitamin 0.8 mg Tablet 1 tab PO QAM RF: 0 warfarin 2.5 mg tablet 2.5 - 5 mg PO DIRECTED RF: 0 lorazepam 0.5 mg tablet 0.5 mg PO DAILY PRN (Reason: anxiety and before dialysis) RF: 0 trazodone 150 mg tablet 150 mg PO HS RF: 0 medroxyprogesterone 150 mg/mL suspension 150 mg IM Q90D RF: 0 cinacalcet [Sensipar] 30 mg Tablet 60 mg PO PM RF: 0 Changed gabapentin [Neurontin] 400 mg Capsule 400 mg PO BID Qty: 0 RF: 0 Discharge Orders: Discharge Order (Routine); Ordered 03/28/21 Ordered By: Ambreen Lutz Admission Data Admit Date/Time: 03/25/21 06:58 Attending Provider: Ambreen Lutz Admit Provider: Gilles Cunningham Primary Care Provider: Adolph Aldridge Other Providers: Gilles Cunningham ; Leah Nieves ; Jameel Wilson ; Caro Malik ; Cornelia Siegel ; Pato Saucedo ; Rishi Morel Other Interventions: Discharge Summary Assessment (RN) Last Done: 03/28/21 10:58
[2021-03-28] MEDS ORDERED: WARFARIN SOD 5 MG TAB PO SCH (16:00)
== END 2021-03-28 12:18 | disposition home or self-care (01) | DRG 682 ==
LOC: ED 01:40 → EDINP 06:58 → 2S 11:27

== ENCOUNTER 2021-06-19 07:57 | Observation (INO) ==
--- NOTE | 2021-06-19 08:19 | Emergency Department Note ---
History of Present Illness General Chief complaint: Illness Time Seen by Provider: 06/19/21 08:10 History of Present Illness This is a 35-year-old female that presents to the emergency department via EMS with complaints of "illness". The patient notes that she is "not feeling herself". She states that this past Saturday when she attended dialysis she was unable to complete the dialysis session. She then felt tired and wanted to sleep throughout the weekend. She notes that her anxiety has not been allowing her to sleep that much. She then noticed that Saturday she began with a sore throat, headache, feeling drowsy followed by diarrhea. She feels as though she may have had a fever. She felt nauseous with this. Then today she attended dialysis and about 2 hours into her 4-hour session she was unable to complete this noting some chest pain and not feeling well therefore prompting arrival here via EMS. She denies any focal/unilateral weakness. Home Medications Medication Instructions Recorded Confirmed Type ferric citrate 210 mg iron tablet 420 mg PO TIDM 10/17/19 06/19/21 History (Auryxia) carvedilol 3.125 mg tablet 3.125 mg PO BID 12/21/19 06/19/21 History hydroxyzine HCl 25 mg tablet 25 mg PO DAILY PRN 04/21/20 06/19/21 History calcium acetate(phosphat bind) 667 2,001 mg PO WM 06/22/20 06/19/21 History mg capsule albuterol sulfate 90 mcg/actuation 2 puff INHALATION QID PRN 08/01/20 06/19/21 History aerosol inhaler sertraline 100 mg tablet 150 mg PO QAM 08/02/20 06/19/21 History amlodipine 10 mg tablet 10 mg PO HS 08/10/20 06/19/21 History vitamin B complex-vitamin C-folic 1 tab PO QAM 08/10/20 06/19/21 History acid 0.8 mg tablet (Renal Vitamin) cinacalcet 30 mg tablet (Sensipar) 60 mg PO PM 03/06/21 06/19/21 History lorazepam 0.5 mg tablet 0.5 mg PO DAILY PRN 03/06/21 06/19/21 History medroxyprogesterone 150 mg/mL 150 mg IM Q90D 03/06/21 06/19/21 History intramuscular suspension trazodone 150 mg tablet 150 mg PO HS 03/06/21 06/19/21 History gabapentin 400 mg capsule 400 mg PO BID #0 cap 03/28/21 06/19/21 Rx (Neurontin) insulin glargine 100 unit/mL (3 10 unit SUBCUT DAILY 06/19/21 06/19/21 History mL) subcutaneous pen (Lantus Solostar U-100 Insulin) Allergies Allergy/AdvReac Type Severity Reaction Status Date / Time cefaclor Allergy Intermediate Rash Verified 03/17/21 02:12 amoxicillin AdvReac Mild VOMITING Verified 03/17/21 02:12 clavulanic acid AdvReac Mild VOMITING Verified 03/17/21 02:12 Past Med/Surg History Medical History Anemia due to end stage renal disease Anxiety and depression Asthma "BEEN A WHILE" SINCE USING LAST RESCUE INHALER AVF (arteriovenous fistula) CKD (chronic kidney disease) stage V requiring chronic dialysis Dialysis patient SATURDAY/SAT/SATURDAY AT [facility] DM2 (diabetes mellitus, type 2) ESRD (end stage renal disease) on dialysis Fistula FSGS (focal segmental glomerulosclerosis) DX INITIALLY 2012 (CAUSING ESRD 2012) GERD (gastroesophageal reflux disease) History of abnormal cervical Papanicolaou smear HTN (hypertension) Peripheral neuropathy Prolonged QT interval Restless leg syndrome Surgical History H/O eye surgery LASER SURGERY LEFT H/O hernia repair ABDOMINAL WALL H/O knee surgery LEFT KNEE X 2 H/O tubal ligation H/O: X 2 History of cardiac cath 2016 NO STENTS History of cholecystectomy History of colonoscopy History of tooth extraction three TOOTH Kidney transplant recipient 2013 AT [facility] Family History Grandmother Hx of CABG Mother Diabetes Father Crohn's disease Grandfather (Maternal) Diabetes Uncle Diabetes Social History Smoking Status: Former smoker Tobacco Type: Cigarettes Cigarettes Per Day: 20; Second Hand Exposure: No; Hx Alcohol Use: No Hx Substance Use: No Preferred Language: Kazakh Communication Ability: Effective 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 Beliefs That Will Affect Care: None marital status: Current Living Situation: Alone Current Living Situation Comment: Friend How many Children do You have: 2 Other Information That Helps Us Care for You: No Feels Safe at Home: Yes Safety Concerns: Feels Safe At This Time Assistive Devices: None Review of Systems A total of 10 systems reviewed and were otherwise negative Physical Exam Vital Signs Vital Signs - 24 hr 06/19/21 08:00 06/19/21 08:05 06/19/21 08:20 Temperature 36.8 C Temperature Source Oral Pulse Rate 82 82 Pulse Rate [Apical] Pulse Rate from SpO2 Sensor 84 Pulse Rhythm [Apical] Respiratory Rate 18 21 Respiratory Effort / Characteristics Non-Labored Spontaneous Respiratory Depth Normal Respiratory Pattern Regular Blood Pressure 155/85 H Blood Pressure [Left Arm] Blood Pressure Mean 108 Blood Pressure Mean [Left Arm] Blood Pressure Position Sitting Blood Pressure Position [Left Arm] Pulse Oximetry 97 97 97 Oxygen Delivery Method Room Air Room Air Sepsis Recent Fever Within 48 Hours No Sepsis New/Unexplained Change in Mental Status N/A Sepsis Action Taken by Nursing No Action Required 06/19/21 08:30 06/19/21 09:00 06/19/21 09:30 Temperature Temperature Source Pulse Rate 82 83 77 Pulse Rate [Apical] Pulse Rate from SpO2 Sensor 79 77 Pulse Rhythm [Apical] Respiratory Rate 12 15 13 Respiratory Effort / Characteristics Respiratory Depth Respiratory Pattern Blood Pressure Blood Pressure [Left Arm] Blood Pressure Mean Blood Pressure Mean [Left Arm] Blood Pressure Position Blood Pressure Position [Left Arm] Pulse Oximetry 95 97 Oxygen Delivery Method Sepsis Recent Fever Within 48 Hours Sepsis New/Unexplained Change in Mental Status Sepsis Action Taken by Nursing 06/19/21 10:00 06/19/21 10:30 06/19/21 11:04 Temperature Temperature Source Pulse Rate 80 76 Pulse Rate [Apical] 80 Pulse Rate from SpO2 Sensor 80 Pulse Rhythm [Apical] Regular Respiratory Rate 16 12 26 H Respiratory Effort / Characteristics Non-Labored Spontaneous Respiratory Depth Normal Respiratory Pattern Regular Blood Pressure Blood Pressure [Left Arm] 125/72 Blood Pressure Mean Blood Pressure Mean [Left Arm] 89 Blood Pressure Position Blood Pressure Position [Left Arm] Lying Pulse Oximetry 98 97 Oxygen Delivery Method Room Air Sepsis Recent Fever Within 48 Hours Sepsis New/Unexplained Change in Mental Status Sepsis Action Taken by Nursing VITAL SIGNS - Vital signs and nursing notes were reviewed. Stable and afebrile. GENERAL -35-year-old female appearing her stated age who is in no acute distress. Communicates well with provider and answers questions appropriately. Patient appears overall tired. SKIN - Without rashes. No meningeal or petechial rash. HEAD - NC/AT. EYES - PERRL with EOMI bilaterally. Sclera anicteric. EARS - No deformities of external structures noted on gross examination bilaterally. No pain elicited with palpation of the tragus bilaterally. External auditory canals without discharge or otor NOSE - Midline and without cyanosis. No epistaxis or purulent drainage noted. Septum midline without deviation or septal hematoma noted. MOUTH/OROPHARYNX - Without perioral cyanosis. Buccal mucosa pink and moist and without leukoplakia. Tongue midline with equal elevation of palate bilaterally. No tonsillar hypertrophy, erythema, or exudates noted. Fair dentition noted. NECK - Neck with FROM. No nuchal rigidity. LUNGS - Chest wall symmetric without accessory muscle use, intercostals ret ractions, or central cyanosis. Normal vesicular breath sounds CTA B/L. No wheezes, rales, or rhonchi appreciated. CARDIAC - RRR with S1/S2. No murmur, rubs, or gallops appreciated. EXTREMITIES - No clubbing or peripheral cyanosis. +5/5 strength noted in UE/LE bilaterally. NEUROLOGIC - Cranial nerves II through XII grossly intact. No focal deficits. PSYCH - A&Ox3 and cooperates fully with examiner. Pt is very pleasant and interacts well with examiner. Course Administered Medications Amlodipine Besylate (Amlodipine Besylate 5 Mg Tab) 10 mg PO HS NIKKI Stop: 07/19/21 20:59 Last Admin: 06/19/21 21:34 Dose: 10 mg Documented by: [id number] Calcium Acetate (Calcium Acetate 667 Mg Cap/Tab) 2,001 mg PO TIDM NIKKI Stop: 07/19/21 13:14 Last Admin: 06/19/21 16:51 Dose: 2,001 mg Documented by: [id number] Admin: 06/19/21 14:20 Dose: 2,001 mg Documented by: [id number] Carvedilol (Carvedilol 3.125 Mg Tab) 3.125 mg PO BID NIKKI Stop: 07/19/21 20:59 Last Admin: 06/19/21 21:34 Dose: 3.125 mg Documented by: [id number] Cinacalcet (Cinacalcet Hcl 30 Mg Tab) 60 mg PO QDD NIKKI Stop: 07/19/21 16:29 Last Admin: 06/19/21 16:49 Dose: 60 mg Documented by: [id number] Gabapentin (Gabapentin 800 Mg Tab) 800 mg PO QDD NIKKI Stop: 07/19/21 16:29 Last Admin: 06/19/21 16:50 Dose: 800 mg Documented by: [id number] Heparin Sodium (Porcine) (Heparin Sod 5,000 Unit/0.5 Ml Vial) 5,000 units SQ Q8 NIKKI Stop: 07/19/21 13:59 Last Admin: 06/19/21 22:01 Dose: 5,000 units Documented by: [id number] Admin: 06/19/21 14:20 Dose: 5,000 units Documented by: [id number] Insulin Aspart (Insulin Aspart 100 Units/Ml 3 Ml Pen) 0 units SC ACHS [facility] Stop: 07/19/21 16:29 Last Admin: 06/19/21 21:35 Dose: Not Given Documented by: [id number] Admin: 06/19/21 16:50 Dose: 2 units Documented by: [id number] Cosigned by: [id number] Miscellaneous (Order Awaiting Action Auryxia 420mg) 1 ea N/A QS [facility] Stop: 07/19/21 15:59 Last Admin: 06/19/21 23:39 Dose: Not Given Documented by: [id number] Admin: 06/19/21 16:48 Dose: Not Given Documented by: [id number] Tramadol HCl (Tramadol Hcl 50 Mg Tablet) 50 mg PO Q12H PRN PRN Reason: Pain Stop: 07/19/21 12:24 Last Admin: 06/19/21 13:28 Dose: 50 mg Documented by: [id number] Trazodone HCl (Trazodone Hcl 50 Mg Tab) 150 mg PO HS NIKKI Stop: 07/19/21 20:59 Last Admin: 06/19/21 21:34 Dose: 150 mg Documented by: [id number] Discontinued Medications Morphine Sulfate (Morphine Sulfate 4 Mg/Ml 1 Ml Carp\\Vial) 4 mg IV NOW STA Stop: 06/19/21 10:24 Last Admin: 06/19/21 11:03 Dose: 4 mg Documented by: [id number] Medical Decision Making Laboratory Data Result diagrams: 06/19/21 09:01 06/19/21 09:01 Lab Results 06/19/21 06/19/2106/19/21 Range/Units 08:17 08:21 08:21 WBC (4.8-10.8) K/uL RBC (4.2-5.4) M/uL Hgb (12.0-16.0) g/dL Hct (37-47) % MCV (80-100) fL MCH (25-34) pg MCHC (32-36) g/dL RDW Std Deviation (36.4-46.3) fL RDW Coeff of Laith (11.5-14.5) % Plt Count (130-400) K/uL MPV (7.4-10.4) fL Immature Gran % (Auto) % Neut % (Auto) % Lymph % (Auto) % Bibb % (Auto) % Eos % (Auto) % Baso % (Auto) % Neut # (Auto) (1.4-6.5) K/uL Lymph # (Auto) (1.2-3.4) K/uL Bibb # (Auto) (0.11-0.59) K/uL Eos # (Auto) (0-0.5) K/uL Baso # (Auto) (0-0.2) K/uL Immature Gran # (Auto) (0.00-0.02) K/uL PT INR APTT PTT Ratio Sodium (136-145) mmol/L Potassium (3.5-5.1) mmol/L Chloride (98-107) mmol/L Carbon Dioxide (21-32) mmol/L Anion Gap (3-11) BUN (7-18) mg/dl Creatinine (0.6-1.2) mg/dl Est Cr Clr Drug Dosing ml/min Est GFR ( Amer) ml/min Est GFR (Non-Af Amer) ml/min BUN/Creatinine Ratio (10-20) Glucose (70-99) mg/dl Calcium (8.5-10.1) mg/dl Magnesium (1.8-2.4) mg/dl Total Bilirubin (0.2-1) mg/dl AST (15-37) U/L ALT (12-78) U/L Alkaline Phosphatase (45-117) U/L Ammonia (11-32) umol/L Troponin I (0-0.045) ng/ml Total Protein (6.4-8.2) gm/dl Albumin (3.4-5.0) gm/dl Globulin (2.5-4.0) gm/dl Albumin/Globulin Ratio (0.9-2) Lipase (73-393) U/L Procalcitonin (0-0.5) ng/ml TSH (0.300-4.500) uIu/ml Free T4 (0.8-1.6) ng/dl HCG, Qual (Negative) COVID-19 Eval Order Covid19 at [facility] SARS-CoV-2 (PCR) NEGATIVE (Negative) Group A Strep (PCR) NOT DETECTED (NotDetected) 06/19/21 06/19/21 06/19/21 Range/Units 09:01 09:01 09:01 WBC 5.00 (4.8-10.8) K/uL RBC 2.68 L (4.2-5.4) M/uL Hgb 8.4 L (12.0-16.0) g/dL Hct 25.5 L (37-47) % MCV 95.1 (80-100) fL MCH 31.3 (25-34) pg MCHC 32.9 (32-36) g/dL RDW Std Deviation 52.7 H (36.4-46.3) fL RDW Coeff of Laith 15.4 H (11.5-14.5) % Plt Count 137 (130-400) K/uL MPV 9.3 (7.4-10.4) fL Immature Gran % (Auto) 0.2 % Neut % (Auto) 74.2 % Lymph % (Auto) 15.8 % Bibb % (Auto) 7.4 % Eos % (Auto) 2.2 % Baso % (Auto) 0.2 % Neut # (Auto) 3.71 (1.4-6.5) K/uL Lymph # (Auto) 0.79 L (1.2-3.4) K/uL Bibb # (Auto) 0.37 (0.11-0.59) K/uL Eos # (Auto) 0.11 (0-0.5) K/uL Baso # (Auto) 0.01 (0-0.2) K/uL Immature Gran # (Auto) 0.01 (0.00-0.02) K/uL PT INR APTT PTT Ratio Sodium (136-145) mmol/L Potassium (3.5-5.1) mmol/L Chloride (98-107) mmol/L Carbon Dioxide (21-32) mmol/L Anion Gap (3-11) BUN (7-18) mg/dl Creatinine (0.6-1.2) mg/dl Est Cr Clr Drug Dosing ml/min Est GFR ( Amer) ml/min Est GFR (Non-Af Amer) ml/min BUN/Creatinine Ratio (10-20) Glucose (70-99) mg/dl Calcium (8.5-10.1) mg/dl Magnesium (1.8-2.4) mg/dl Total Bilirubin (0.2-1) mg/dl AST (15-37) U/L ALT (12-78) U/L Alkaline Phosphatase (45-117) U/L Ammonia 27.6 (11-32) umol/L Troponin I (0-0.045) ng/ml Total Protein (6.4-8.2) gm/dl Albumin (3.4-5.0) gm/dl Globulin (2.5-4.0) gm/dl Albumin/Globulin Ratio (0.9-2) Lipase (73-393) U/L Procalcitonin 0.65 H (0-0.5) ng/ml TSH (0.300-4.500) uIu/ml Free T4 (0.8-1.6) ng/dl HCG, Qual Negative (Negative) COVID-19 Eval Order SARS-CoV-2 (PCR) (Negative) Group A Strep (PCR) (NotDetected) 06/19/21 06/19/21 06/19/21 Range/Units 09:01 09:01 10:17 WBC (4.8-10.8) K/uL RBC (4.2-5.4) M/uL Hgb (12.0-16.0) g/dL Hct (37-47) % MCV (80-100) fL MCH (25-34) pg MCHC (32-36) g/dL RDW Std Deviation (36.4-46.3) fL RDW Coeff of Laith (11.5-14.5) % Plt Count (130-400) K/uL MPV (7.4-10.4) fL Immature Gran % (Auto) % Neut % (Auto) % Lymph % (Auto) % Bibb % (Auto) % Eos % (Auto) % Baso % (Auto) % Neut # (Auto) (1.4-6.5) K/uL Lymph # (Auto) (1.2-3.4) K/uL Bibb # (Auto) (0.11-0.59) K/uL Eos # (Auto) (0-0.5) K/uL Baso # (Auto) (0-0.2) K/uL Immature Gran # (Auto) (0.00-0.02) K/uL PT Cancelled 10.2 INR Cancelled 1.0 APTT Cancelled 21.9 PTT Ratio Cancelled 0.8 Sodium 138 (136-145) mmol/L Potassium 3.9 (3.5-5.1) mmol/L Chloride 102 (98-107) mmol/L Carbon Dioxide 27 (21-32) mmol/L Anion Gap 9.0 (3-11) BUN 55 H (7-18) mg/dl Creatinine 7.84 H* (0.6-1.2) mg/dl Est Cr Clr Drug Dosing 12.1 ml/min Est GFR ( Amer) 7.0 ml/min Est GFR (Non-Af Amer) 6.0 ml/min BUN/Creatinine Ratio 7.0 L (10-20) Glucose 121 H (70-99) mg/dl Calcium 8.5 (8.5-10.1) mg/dl Magnesium 2.5 H (1.8-2.4) mg/dl Total Bilirubin 0.3 (0.2-1) mg/dl AST 18 (15-37) U/L ALT 23 (12-78) U/L Alkaline Phosphatase 75 (45-117) U/L Ammonia (11-32) umol/L Troponin I 0.147 H* (0-0.045) ng/ml Total Protein 6.7 (6.4-8.2) gm/dl Albumin 2.8 L (3.4-5.0) gm/dl Globulin 3.9 (2.5-4.0) gm/dl Albumin/Globulin Ratio 0.7 L (0.9-2) Lipase 192 (73-393) U/L Procalcitonin (0-0.5) ng/ml TSH 4.650 H (0.300-4.500) uIu/ml Free T4 0.74 L (0.8-1.6) ng/dl HCG, Qual (Negative) COVID-19 Eval Order SARS-CoV-2 (PCR) (Negative) Group A Strep (PCR) (NotDetected) Imaging Data Radiologist's Impression: SINGLE VIEW CHEST CLINICAL HISTORY: Atypical chest pain. FINDINGS: 2 AP, portable, upright chest radiographs are compared to study dated 06/02/2021. Correlation is made with chest CT dated 08/11/2020. A vascular stent projects over the mediastinum. The heart is enlarged. The pulmonary vasculature is noncongested. There is mild elevation of the right hemidiaphragm and bibasilar atelectasis. The lungs and pleural spaces are otherwise clear. No pneumothorax is seen. The bony thorax is grossly intact. IMPRESSION: Cardiomegaly with no acute cardiopulmonary abnormality. ACT 112: Negative or not required by law. Electronically signed by: North Quinteor M.D. 06/19/2021 8:43 AM MDM Narrative Patient was seen and evaluated as above in room B 11. Review was performed of nu rsing notes and vital signs. I did review pertinent previous visits and patient history. After obtaining a thorough history and physical examination the above work up was performed. Patient presents to us today via ambulance with chest pain, and overall not feeling well. She appears tired and somewhat groggy on exam. She is alert and oriented x3. No focal deficit. Options of care were discussed with the patient. IV access was established. Labs were drawn. EKG reveals normal sinus rhythm at a rate of 80 bpm. QTc 502. QRS 102. No ST elevation. Chest x-ray negative. Low suspicion for dissection. Low suspicion for PE. There is no leukocytosis. There is anemia noted at hemoglobin of 8.4. No significant metabolic disturbance compared to baseline noting end-stage renal disease. Troponin elevated at 0.147 however is similar to previous. Pro-Abe elevated at 0.65. Blood cultures pending. Lactic deferred. hCG negative. She was given 1 dose of IV morphine for her chest pain. Strep testing ordered secondary to her sore throat was negative. Covid testing negative. With the patient completing half of her dialysis presenting here today now noting she feels unwell and has chest pain options of care were discussed. Although overall I have a low suspicion for cardiac etiology it is felt that further evaluation and management the inpatient setting is warranted. Do not believe the patient requires emergent catheterization at this time. It is likely that her troponin is secondary to her underlying chronic medical conditions and unlikely be acute cardiac in nature. Case discussed with the hospitalist. Please refer to further documentation regarding her stay. An order was placed for continuous cardiac monitoring. The monitor shows a rate of 83 with sinus rhythm. GCS: 15 In the evaluation and treatment of this patient, the following differential diagnoses were considered: NM, ASC, Dysrhythmia, Angina, Mediastinitis, GERD, Esophagitis, PE, Pneumonia, Bronchitis, Costochondritis, Rib Fracture, Zoster. Impression & Plan Chest pain, Elevated troponin Discharge Plan Visit Data Chief Complaint: Illness ED Provider: Asiya Sun ED Midlevel Provider: Geoff Jennings Discharge Problem: Chest pain, Elevated troponin Patient Disposition: Admitted As Inpatient Condition: Fair Discharge Instructions Interventions: ED Discharge Assessment Last Done: 06/19/21 12:22
--- NOTE | 2021-06-19 08:45 | XRay Report ---
SINGLE VIEW CHEST CLINICAL HISTORY: Atypical chest pain. FINDINGS: 2 AP, portable, upright chest radiographs are compared to study dated 06/02/2021. Correlatio n is made with chest CT dated 08/11/2020. A vascular stent projects over the mediastinum. The heart i s enlarged. The pulmonary vasculature is noncongested. There is mild elevation of the right hemidiaph ragm and bibasilar atelectasis. The lungs and pleural spaces are otherwise clear. No pneumothorax is seen. The bony thorax is grossly intact. IMPRESSION: Cardiomegaly with no acute cardiopulmonary abnormality. ACT 112: Negative or not required by law. Electronically signed by: North Quintreo M.D. 06/19/2021 8:43 AM
[2021-06-19 09:19] LABS: Basophils # (auto) 0.01 K/uL (0-0.2); Basophils % (auto) 0.2 %; Eosinophils # (auto) 0.11 K/uL (0-0.5); Eosinophils % (auto) 2.2 %; Hematocrit (blood only) 25.5 % (37-47); Hemoglobin 8.4 g/dL (12.0-16.0); Immature Granulocytes # (auto) 0.01 K/uL (0.00-0.02); Immature Granulocytes % (auto) 0.2 %; Lymphocytes # (auto) 0.79 K/uL (1.2-3.4); Lymphocytes % (auto) 15.8 %; Mean Corpuscular Hemoglobin 31.3 pg (25-34); Mean Corpuscular Hgb Conc 32.9 g/dL (32-36); Mean Corpuscular Volume 95.1 fL (80-100); Mean Platelet Volume 9.3 fL (7.4-10.4); Monocytes # (auto) 0.37 K/uL (0.11-0.59); Monocytes % (auto) 7.4 %; Neutrophils # (auto) 3.71 K/uL (1.4-6.5); Neutrophils % (auto) 74.2 %; Platelet Count 137 K/uL (130-400); RDW Coefficient of Variation 15.4 % (11.5-14.5); RDW Standard Deviation 52.7 fL (36.4-46.3); Red Blood Count 2.68 M/uL (4.2-5.4)
[2021-06-19 09:42] LABS: Pregnancy Test, Serum Negative (Negative)
[2021-06-19 09:59] LABS: Albumin Globulin Ratio 0.7 (0.9-2); Albumin Level 2.8 gm/dl (3.4-5.0); Bilirubin,Total 0.3 mg/dl (0.2-1); Calcium 8.5 mg/dl (8.5-10.1); Creatinine Clr Calc Pharmacy 12.1 ml/min; Globulin 3.9 gm/dl (2.5-4.0); Magnesium 2.5 mg/dl (1.8-2.4); Potassium 3.9 mmol/L (3.5-5.1); Thyroid Stimulating Hormone 4.65 uIu/ml (0.300-4.500); Total Protein 6.7 gm/dl (6.4-8.2); Troponin I 0.147 ng/ml (0-0.045)
[2021-06-19 10:16] LABS: T4 Free Thyroxine 0.74 ng/dl (0.8-1.6)
[2021-06-19] MEDS ORDERED: MoRPHine SULFATE 4 MG/ML 1 ML CARP\\VIAL IV STA (10:23)
[2021-06-19 10:26] LABS: Procalcitonin 0.65 ng/ml (0-0.5)
[2021-06-19 10:44] LABS: Partial Thromboplastin Ratio 0.8; Partial Thromboplastin Time 21.9 Seconds (21.0-31.0); Prothrombin Time 10.2 Seconds (9.0-12.0)
[2021-06-19] MEDS ORDERED: traMADol HCL 50 MG TABLET PO PRN (12:25)
[2021-06-19] MEDS ORDERED: LORazepam 0.5 MG TAB PO PRN (13:13)
[2021-06-19] MEDS ORDERED: hydrOXYzine HCl 25 MG TAB PO PRN (13:13)
[2021-06-19] MEDS ORDERED: ACETAMINOPHEN 325 MG TAB PO PRN (13:13)
[2021-06-19] MEDS ORDERED: DEXTROSE 50% 50 ML SYRINGE IV PRN ×2 (13:30→14:55)
[2021-06-19] MEDS ORDERED: GLUCOSE 40% GEL 15 GM TUBE PO PRN ×2 (13:30→14:55)
[2021-06-19] MEDS ORDERED: GLUCAGON FOR INJ 1 MG VIAL IM PRN (13:30)
[2021-06-19] MEDS ORDERED: GLUCOSE 10 TABS/TUBE PO PRN ×2 (13:30→14:55)
[2021-06-19] MEDS ORDERED: CARBOHYDRATES FOR HYPOGLYCEMIA PO PRN ×2 (13:30→14:55)
[2021-06-19] MEDS: CALCIUM ACETATE 667 MG CAP/TAB PO SCH ×2 (14:20→16:51)
[2021-06-19] MEDS: HEPARIN SOD 5,000 UNIT/0.5 ML VIAL SQ SCH ×2 (14:20→22:01)
--- NOTE | 2021-06-19 14:43 | History & Physical Report ---
Date of Service June 19, 2021 Assessment & Plan (1) Chest pain: (2) Elevated troponin: Plan: -Admit to telemetry -Patient presenting from dialysis with reports of chest pain/anxiety. Chest pain noted to be reproducible on exam. EKG without acute ST changes. Low suspicion for cardiac chest pain. -Troponin 0.147, underlying ESRD likely contributing, continue to trend troponin, if significant rise, will consider resting echo (3) CKD (chronic kidney disease) stage V requiring chronic dialysis: Plan: -Nephrology consulted for dialysis orders, Dr. 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 Patient reports that during her routine dialysis session on Saturday, she was only able to complete about 2 hours of her treatment due to a water supply issue at the facility. She reports feeling very fatigued over the weekend. This morning, patient presented for her routine dialysis session again however about 2 hours then, she developed a midsternal chest pain and anxiety. Patient reports the pain is being 10 out of 10. No radiation of the pain into the jaw, neck, shoulder, arm. She denies associated shortness of breath. She reports some mild lightheadedness and dizziness with ambulation, no rate recent syncopal events. Denies fevers and chills. No abdominal pain, nausea, vomiting, diarrhea. She is anuric due to ESRD. In the ED, patient is hemodynamically stable. Labs show mildly elevated troponin 0.147, EKG without acute ST changes. Electrolytes acceptable. Patient was given IV morphine. Allergies Allergy/AdvReac Type Severity Reaction Status Date / Time cefaclor Allergy Intermediate Rash Verified 03/17/21 02:12 amoxicillin AdvReac Mild VOMITING Verified 03/17/21 02:12 clavulanic acid AdvReac Mild VOMITING Verified 03/17/21 02:12 Home Medications Medication Instructions Recorded Confirmed Type ferric citrate 210 mg iron tablet 420 mg PO TIDM 10/17/19 06/19/21 History (Auryxia) carvedilol 3.125 mg tablet 3.125 mg PO BID 12/21/19 06/19/21 History hydroxyzine HCl 25 mg tablet 25 mg PO DAILY PRN 04/21/20 06/19/21 History calcium acetate(phosphat bind) 667 2,001 mg PO WM 06/22/20 06/19/21 History mg capsule albuterol sulfate 90 mcg/actuation 2 puff INHALATION QID PRN 08/01/20 06/19/21 History aerosol inhaler sertraline 100 mg tablet 150 mg PO QAM 08/02/20 06/19/21 History amlodipine 10 mg tablet 10 mg PO HS 08/10/20 06/19/21 History vitamin B complex-vitamin C-folic 1 tab PO QAM 08/10/20 06/19/21 History acid 0.8 mg tablet (Renal Vitamin) cinacalcet 30 mg tablet (Sensipar) 60 mg PO PM 03/06/21 06/19/21 History lorazepam 0.5 mg tablet 0.5 mg PO DAILY PRN 03/06/21 06/19/21 History medroxyprogesterone 150 mg/mL 150 mg IM Q90D 03/06/21 06/19/21 History intramuscular suspension trazodone 150 mg tablet 150 mg PO HS 03/06/21 06/19/21 History gabapentin 400 mg capsule 400 mg PO BID #0 cap 03/28/21 06/19/21 Rx (Neurontin) insulin glargine 100 unit/mL (3 10 unit SUBCUT DAILY 06/19/21 06/19/21 History mL) subcutaneous pen (Lantus Solostar U-100 Insulin) Past Med/Surg History Medical History Anemia due to end stage renal disease Anxiety and depression Asthma "BEEN A WHILE" SINCE USING LAST RESCUE INHALER AVF (arteriovenous fistula) CKD (chronic kidney disease) stage V requiring chronic dialysis Dialysis patient SATURDAY/SAT/SATURDAY AT [facility] DM2 (diabetes mellitus, type 2) ESRD (end stage renal disease) on dialysis Fistula FSGS (focal segmental glomerulosclerosis) DX INITIALLY 2012 (CAUSING ESRD 2012) GERD (gastroesophageal reflux disease) History of abnormal cervical Papanicolaou smear HTN (hypertension) Peripheral neuropathy Prolonged QT interval Restless leg syndrome Surgical History H/O eye surgery LASER SURGERY LEFT H/O hernia repair ABDOMINAL WALL H/O knee surgery LEFT KNEE X 2 H/O tubal ligation H/O: X 2 History of cardiac cath 2016 NO STENTS History of cholecystectomy History of colonoscopy History of tooth extraction three TOOTH Kidney transplant recipient 2013 AT [facility] Family History Grandmother Hx of CABG Mother Diabetes Father Crohn's disease Grandfather (Maternal) Diabetes Uncle Diabetes Social History Smoking Status: Former smoker Tobacco Type: Cigarettes Cigarettes Per Day: 20; Second Hand Exposure: No; Hx Alcohol Use: No Hx Substance Use: No Preferred Language: Amharic Communication Ability: Effective Bicycle Designer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 Beliefs That Will Affect Care: None marital status: Current Living Situation: Alone Current Living Situation Comment: Friend How many Children do You have: 3 Other Information That Helps Us Care for You: No Feels Safe at Home: Yes Safety Concerns: Feels Safe At This Time Assistive Devices: None Review of Systems Review of Systems: ROS per HPI, all other systems reviewed and negative Physical Exam Constitutional: WD/WN, vitals as above Eyes: PERRL, conjunctivae normal, anicteric sclerae ENMT: external ear and nose normal, oropharynx normal Respiratory: normal respiratory effort, lungs clear to auscultation Cardiovascular: Rate/Rhythm: regular rate and regular rhythm Vessels: normal peripheral pulses Extremities: no edema Chest (Breasts): Additional Comments: Midsternal chest wall tenderness Gastrointestinal (Abdomen): normal bowel sounds, soft, nontender, no hepatosplenomegaly Musculoskeletal: no cyanosis or clubbing, extremities motor strength 5/5 Skin: no rashes, warm and dry Psychiatric: A+Ox3, euthymic affect Results & Data Results & Data ([facility]) Vital Signs (Past 12 Hours) Vital Signs Temp Pulse Pulse Resp BP BP Pulse Ox 06/19/21 13:16 36.7 C 75 20 132/78 96 06/19/21 12:22 36.4 C L 77 12 145/104 H 95 06/19/21 11:04 80 26 H 125/72 97 06/19/21 10:30 76 12 06/19/21 10:00 80 16 98 06/19/21 09:30 77 13 97 06/19/21 09:00 83 15 06/19/21 08:30 82 12 95 06/19/21 08:20 97 06/19/21 08:05 82 21 97 06/19/21 08:00 36.8 C 82 18 155/85 H 97 Laboratory Results Short CBC 06/19/21 Range/Units 09:01 WBC 5.00 (4.8-10.8) K/uL Hgb 8.4 L (12.0-16.0) g/dL Hct 25.5 L (37-47) % Plt Count 137 (130-400) K/uL BMP 06/19/21 09:01 Sodium 138 Potassium 3.9 Chloride 102 Carbon Dioxide 27 BUN 55 H Creatinine 7.84 H* Glucose 121 H Calcium 8.5 Cardiac Enzymes 06/19/21 Range/Units 09:01 Troponin I 0.147 H* (0-0.045) ng/ml Liver Function 06/19/21 Range/Units 09:01 Total Bilirubin 0.3 (0.2-1) mg/dl AST 18 (15-37) U/L ALT 23 (12-78) U/L Alkaline Phosphatase 75 (45-117) U/L Albumin 2.8 L (3.4-5.0) gm/dl Diagnostic Findings Chest X-Ray 06/19/21 08:20 SINGLE VIEW CHEST CLINICAL HISTORY: Atypical chest pain. FINDINGS: 2 AP, portable, upright chest radiographs are compared to study dated 06/02/2021. Correlation is made with chest CT dated 08/11/2020. A vascular stent projects over the mediastinum. The heart is enlarged. The pulmonary vasculature is noncongested. There is mild elevation of the right hemidiaphragm and bibasilar atelectasis. The lungs and pleural spaces are otherwise clear. No pneumothorax is seen. The bony thorax is grossly intact. IMPRESSION: Cardiomegaly with no acute cardiopulmonary abnormality. ACT 112: Negative or not required by law. Electronically signed by: North Quintero M.D. 06/19/2021 8:43 AM Code Status & VTE Plan VTE Prophylaxis Plan VTE Prophylaxis will be ordered: Yes Supervising Physician Co-Signing Physician Notes Reproducible chest pain Elevated troponin in the setting of ESRD Patient presents with chest pain that has been going on for 1 week. Patient reports her pain is persistent in nature, nonradiating and associated with breathing and palpation patient reports prior to that few days ago she had an episode of bronchiectasis. Remains afebrile has any shortness of breath. Denies any cough at the moment. X-ray without any concerns and is afebrile. WBC is within normal limit. Noted to be tender on chest. Continue to trend cardiac enzymes. Nephrology for dialysis. I performed a history and physical examination of the patient on 06/19/21, including specifically H&P. I have discussed the patient's management with the advanced practitioner. Please refer to the Kayy Jacob note for the documented findings and plan of care. (1) DM2 (diabetes mellitus, type 2) Diabetes mellitus complication status: with unspecified complications Diabetes mellitus penitentiary insulin use: without terminal operator use Qualified Code(s): E11.8 - Type 2 diabetes mellitus with unspecified complications (2) HTN (hypertension) Hypertension type: unspecified Qualified Code(s): I10 - Essential (primary) hypertension
[2021-06-19] MEDS ORDERED: GLUCAGON FOR INJ 1 MG VIAL SQ PRN (14:55)
[2021-06-19] MEDS: CINACALCET HCL 30 MG TAB PO SCH (16:49)
[2021-06-19] MEDS: GABAPENTIN 800 MG TAB PO SCH (16:50)
[2021-06-19] MEDS: INSULIN ASPART 100 UNITS/ML 3 ML PEN SC SCH ×2 (16:50→21:35)
--- NOTE | 2021-06-19 17:16 | Nephrology Consultation ---
Date of Consultation June 19, 2021 Assessment & Plan (1) CKD (chronic kidney disease) stage V requiring chronic dialysis: ESRD on HD w/ some missed tx time today and prior tx. chemistries acceptable; very slightly overloaded but not markedly so > on RA, not hypertensive. some caution given mild troponin elevation -due for dialysis 2 hrs - not emergently needing HD and will runher tomorrow -monitor hgb; will give epo w/ HD (2) Chest pain: improving and not likely cardiac origin but w/ 2 mildly elevated troponins though they are down trending; no issues on tele when I saw her after 2.5 hrs on it > will monitor and plan dialysis tomorrow History of Present Illness Reason for Consultation: ESRD on HD Requesting Physician: Dr Garsia Attending Physician: Johnathan Garsia MD History of Present Illness 38 y/o F whom I'm asked to see for dialysis needs after she was obs'd today to evaluate chest pain with an elevated troponin. PMH includes ESRD from FSGS on MWF HD, hx of failed renal transplant, HTN, anxiety, asthma, RLS. Also s/p AVF angioplasty on 06/15 her CC at my evaluation are fatigue and some lingering substernal chest discomfort, improved after tramadol and morphine, improved to 3/10. no radiatio n of pain. no exacerbating factors such as activity or po intake. she has no dyspnea or nausea; no diaphoresis, no fever or rigors. CP was reproducible on presentation. ECG has no acute ST segment changes. she had 2 hours of HD today before developing chest discomfort and anxiety and 2 hrs on 06/16 - on 06/16 tx shortened d/t water supply issues at the unit. Allergies Allergy/AdvReac Type Severity Reaction Status Date / Time cefaclor Allergy Intermediate Rash Verified 03/17/21 02:12 amoxicillin AdvReac Mild VOMITING Verified 03/17/21 02:12 clavulanic acid AdvReac Mild VOMITING Verified 03/17/21 02:12 Home Medications Medication Instructions Recorded Confirmed Type ferric citrate 210 mg iron tablet 420 mg PO TIDM 10/17/19 06/19/21 History (Auryxia) carvedilol 3.125 mg tablet 3.125 mg PO BID 12/21/19 06/19/21 History hydroxyzine HCl 25 mg tablet 25 mg PO DAILY PRN 04/21/20 06/19/21 History calcium acetate(phosphat bind) 667 2,001 mg PO WM 06/22/20 06/19/21 History mg capsule albuterol sulfate 90 mcg/actuation 2 puff INHALATION QID PRN 08/01/20 06/19/21 History aerosol inhaler sertraline 100 mg tablet 150 mg PO QAM 08/02/20 06/19/21 History amlodipine 10 mg tablet 10 mg PO HS 08/10/20 06/19/21 History vitamin B complex-vitamin C-folic 1 tab PO QAM 08/10/20 06/19/21 History acid 0.8 mg tablet (Renal Vitamin) cinacalcet 30 mg tablet (Sensipar) 60 mg PO PM 03/06/21 06/19/21 History lorazepam 0.5 mg tablet 0.5 mg PO DAILY PRN 03/06/21 06/19/21 History medroxyprogesterone 150 mg/mL 150 mg IM Q90D 03/06/21 06/19/21 History intramuscular suspension trazodone 150 mg tablet 150 mg PO HS 03/06/21 06/19/21 History gabapentin 400 mg capsule 400 mg PO BID #0 cap 03/28/21 06/19/21 Rx (Neurontin) insulin glargine 100 unit/mL (3 10 unit SUBCUT DAILY 06/19/21 06/19/21 History mL) subcutaneous pen (Lantus Solostar U-100 Insulin) Patient History Medical History Anemia due to end stage renal disease Anxiety and depression Asthma "BEEN A WHILE" SINCE USING LAST RESCUE INHALER AVF (arteriovenous fistula) CKD (chronic kidney disease) stage V requiring chronic dialysis Dialysis patient SATURDAY/SAT/SATURDAY AT [facility] DM2 (diabetes mellitus, type 2) ESRD (end stage renal disease) on dialysis Fistula FSGS (focal segmental glomerulosclerosis) DX INITIALLY 2012 (CAUSING ESRD 2012) GERD (gastroesophageal reflux disease) History of abnormal cervical Papanicolaou smear HTN (hypertension) Peripheral neuropathy Prolonged QT interval Restless leg syndrome Surgical History H/O eye surgery LASER SURGERY LEFT H/O hernia repair ABDOMINAL WALL H/O knee surgery LEFT KNEE X 2 H/O tubal ligation H/O: X 2 History of cardiac cath 2017 NO STENTS History of cholecystectomy History of colonoscopy History of tooth extraction three TOOTH Kidney transplant recipient 2014 AT [facility] Family History Grandmother Hx of CABG Mother Diabetes Father Crohn's disease Grandfather (Maternal) Diabetes Uncle Diabetes Social History Smoking Status: Former smoker Tobacco Type: Cigarettes Cigarettes Per Day: 20; Second Hand Exposure: No; Hx Alcohol Use: No Hx Substance Use: No Preferred Language: Arabic Communication Ability: Effective Door Serviceman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 Beliefs That Will Affect Care: None marital status: Current Living Situation: Alone Current Living Situation Comment: Friend How many Children do You have: 2 Other Information That Helps Us Care for You: No Feels Safe at Home: Yes Safety Concerns: Feels Safe At This Time Assistive Devices: None Review of Systems Review of Systems: All systems reviewed & are unremarkable except as noted in HPI & below Physical Exam Constitutional: well developed, well nourished, + obese and cooperative; no acute distress Eyes: EOM intact bilaterally ENMT: Ears: no external ear abnormality Nose: no external nose abnormality Mouth: + dry oral mucous membranes Neck: no nuchal rigidity Respiratory: normal respiratory effort Auscultation: + diminished lung sounds and + crackles (L base) Cardiovascular: Rate/Rhythm: regular rate and regular rhythm Heart Sounds: normal S1 and normal S2 Extremities: + AV fistula (+ t/b); no edema Gastrointestinal (Abdomen): Inspection/Auscultation: normal bowel sounds Percussion/Palpation: abdomen soft; abdomen nontender Musculoskeletal: Extremities: strength 5/5 throughout Skin: no rashes, warm and dry Neurologic: sandy, fluent speech, no tremor Psychiatric: Orientation: alert and oriented x 3 Results & Data ([facility]) Vital Signs (Past 12 Hours) Vital Signs Temp Pulse Pulse Resp BP BP Pulse Ox 06/19/21 15:39 36.5 C 75 17 130/78 93 06/19/21 13:16 36.7 C 75 20 132/78 96 06/19/21 12:22 36.4 C L 77 12 145/104 H 95 10/25/21 11:04 80 26 H 125/72 97 06/19/21 10:30 76 12 06/19/21 10:00 80 16 98 06/19/21 09:30 77 13 97 06/19/21 09:00 83 15 06/19/21 08:30 82 12 95 06/19/21 08:20 97 06/19/21 08:05 82 21 97 06/19/21 08:00 36.8 C 82 18 155/85 H 97 Laboratory Results 06/19/21 09:01 06/19/21 09:01 Diagnostic Findings cxr > no acute CP issues
[2021-06-19] MEDS ORDERED: traZODone HCL 50 MG TAB PO SCH (21:00)
[2021-06-19] MEDS ORDERED: amLODIPine BESYLATE 5 MG TAB PO SCH (21:00)
[2021-06-19] MEDS: carvediloL 3.125 MG TAB PO SCH (21:34)
--- NOTE | 2021-06-20 05:14 | Electrocardiogram Report ---
Test Reason : Blood Pressure : / mmHG Vent. Rate : 080 BPM Atrial Rate : 080 BPM P-R Int : 168 ms QRS Dur : 102 ms QT Int : 436 ms P-R-T Axes : 045 003 013 degrees QTc Int : 502 ms Normal sinus rhythm Poor R wave progression, consider anterior GA vs. lead placement vs. LVH Prolonged QT Abnormal ECG When compared with ECG of 25-MAR-2021 01:53, QT has shortened Confirmed by Johny Rodriguez ([id number]) on 06/20/2021 5:13:38 AM Referred By: REFERRED SELF Confirmed By:Johny Rodriugez
[2021-06-20] MEDS: HEPARIN SOD 5,000 UNIT/0.5 ML VIAL SQ SCH ×2 (06:05→14:54)
[2021-06-20 07:11] LABS: Hematocrit (blood only) 26.2 % (37-47); Hemoglobin 8.4 g/dL (12.0-16.0); Mean Corpuscular Hemoglobin 30.8 pg (25-34); Mean Corpuscular Hgb Conc 32.1 g/dL (32-36); Mean Platelet Volume 9.9 fL (7.4-10.4); Platelet Count 121 K/uL (130-400); RDW Coefficient of Variation 15.3 % (11.5-14.5); RDW Standard Deviation 53.5 fL (36.4-46.3); Red Blood Count 2.73 M/uL (4.2-5.4); White Blood Count 4.51 K/uL (4.8-10.8)
[2021-06-20] MEDS ORDERED: GABAPENTIN 400 MG CAP PO SCH ×2 (07:30→11:30)
[2021-06-20] MEDS ORDERED: SODIUM CHLORIDE 0.9% 1000ML 1,000 ML IV PRN (07:41)
[2021-06-20] MEDS ORDERED: EPOETIN ALFA 24,000 UNITS in SYRINGE 0 ML IV SCH (07:41)
[2021-06-20] MEDS ORDERED: HEPARIN SOD (PORCINE) 1000 UNIT/ML IV SCH (07:41)
[2021-06-20] MEDS ORDERED: EPOETIN ALFA 20,000 UNITS/ML VIAL IV ONE (07:41)
[2021-06-20 08:03] LABS: BUN Creatinine Ratio 6.4 (10-20); Creatinine Clr Calc Pharmacy 8.7 ml/min; Est GFR (African American) 4.8 ml/min; Est GFR (Non-African American) 4.2 ml/min; Potassium 4.7 mmol/L (3.5-5.1)
[2021-06-20 08:09] LABS: Estimated Average Glucose 137 mg/dl; Hemoglobin A1C 6.4 % (4.5-5.6)
[2021-06-20] MEDS: CALCIUM ACETATE 667 MG CAP/TAB PO SCH ×3 (08:23→18:28)
[2021-06-20] MEDS: carvediloL 3.125 MG TAB PO SCH (08:24)
[2021-06-20] MEDS: INSULIN ASPART 100 UNITS/ML 3 ML PEN SC SCH ×3 (08:25→18:28)
[2021-06-20] MEDS ORDERED: NEPHROCAPS PO SCH (09:00)
[2021-06-20] MEDS ORDERED: SERTRALINE HCL 50 MG TABLET PO SCH (09:00)
[2021-06-20] MEDS ORDERED: INSULIN GLARGINE SOLOSTAR 100 UNITS/ML 3 ML PEN SQ SCH (09:00)
--- NOTE | 2021-06-20 10:47 | Nephrology Progress Note ---
Date of Service June 20, 2021 Assessment & Plan (1) CKD (chronic kidney disease) stage V requiring chronic dialysis: Plan: ESRD on HD w/ some missed tx time 06/19 and prior tx. chemistries acceptable; very slightly overloaded but not markedly so > on RA, not hypertensive. some caution given mild troponin elevation; however sx improved, troponins not rising; monitor unremarkable; pain reproducible. THIS NOTE WILL BE COUNTED COMPREHENSIVE OUTPATIENT DIALYSIS NOTE, unless this obs turns to admission. I have therefore evaluated OP dialysis labs /topics -- Kt/V 1.9 this month > adequate -due for dialysis; will run 3.5 hrs - in attempt to make up most of missed time and to verify no issues on tx -gabapentin dosing is high for ESRD but she tolerates and would continue -s/p AVF angioplasty last week - no records in [facility] or [facility] systems and will have OP team f/u -not a renal txplt candidate currently d/t adherence issues and hx of failed txplt d/t same; cont to work on better adherence and low threshold to send for reeval if this is stable/improved (2) Chest pain: Plan: improving and reproducible; doubt cardiac origin but w/ mildly elevated troponins though they are down trending >>>she last saw cardiology as OP in 2017 >> recommend restablishing w/ them given her risk ff and frequent chest pain admissions; also outpatient [facility] is considering trial of lupron to tx irregular menses -- no strictly renal contraindications but I have concerns about cardiovascular risk this medication may potentially pose and would get cardiology input before starting med (3) Renal osteodystrophy: Plan: hyperphosphatemia > OP phos 9.5 > 8.1, some improvement but still too high. on phosLo and auryxia as OP > just moved, has not been taking meds >> encouraged her to locate them on d/c -continue cinacalcet - PTH 486 last month, in goal then and month before; verify appropriate recheck -cont renavite (4) Anemia in ESRD (end-stage renal disease): Plan: multifactorial really -- due in part to ESRD; also some irregular menses. see above re proposed lupron tx. Also mild pancytopenia noted today, primarily in red cell lines. -monitor CBC as OP -lower heparin dosing on tx as tolerated -24K units of epo on tx today -t stn 34% this month > no indication for iron load; due in part to auryxia tx (5) HTN (hypertension): Plan: adequately controlled. Often does not meet TW of 100 kg as OP >> but this is due in part to cutting/skipping txs relatively often. may be gaining lean body weight as well. -target UF today 2.5 L which would bring her close to TW if UF tolerated -monitor TW / continue to adjust as OP -continue amlodipine full dose -cont fluid/sodium limits Admission and Anticipated Discharge Date Admission Date: June 19, 2021 Subjective no issues overnight; monitor NSR; slept well no sob; chest pain improving; no n/v, no diaphoresis, no SOB, no edema. CP remains nonradiating and reproducible Review of Systems Review of Systems: All systems reviewed & are unremarkable except as noted in Subjective Physical Exam Constitutional: well developed, well nourished, + obese and cooperative; no ac tribe distress Eyes: EOM intact bilaterally ENMT: Ears: no external ear abnormality Nose: no external nose abnormality Mouth: + dry oral mucous membranes Neck: no nuchal rigidity Respiratory: normal respiratory effort Auscultation: + diminished lung sounds and + crackles (L base) Cardiovascular: Rate/Rhythm: regular rate and regular rhythm Heart Sounds: normal S1 and normal S2 Extremities: + AV fistula (+ t/b); no edema Gastrointestinal (Abdomen): Inspection/Auscultation: normal bowel sounds Percussion/Palpation: abdomen soft; abdomen nontender Musculoskeletal: Extremities: strength 5/5 throughout chest pain rep roducible w/ palpation Skin: no rashes, warm and dry Neurologic: maneuvers easily for exam, fluent speech, no tremor Psychiatric: Orientation: alert and oriented x 3 Results & Data ([facility]) Vital Signs (Past 12 Hours) Vital Signs Temp Pulse Pulse Resp BP Pulse Ox 06/20/21 08:15 36.5 C 75 20 128/69 99 06/20/21 03:50 36.8 C 76 16 131/87 95 06/19/21 23:30 83 06/19/21 22:53 36.5 C 81 16 131/73 95 Laboratory Results 06/20/21 06:43 06/20/21 06:43 (1) HTN (hypertension) Hypertension type: unspecified Qualified Code(s): I10 - Essential (primary) hypertension
[2021-06-20] MEDS: HEPARIN SOD (PORCINE) 1000 UNIT/ML IV SCH ×3 (15:37→18:28)
[2021-06-20] MEDS: CINACALCET HCL 30 MG TAB PO SCH (18:27)
[2021-06-20] MEDS: GABAPENTIN 800 MG TAB PO SCH (18:28)
--- NOTE | 2021-06-29 08:53 | Discharge Summary ---
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 Patient reports that during her routine dialysis session on Saturday, she was only able to complete about 2 hours of her treatment due to a water supply issue at the facility. She reports feeling very fatigued over the weekend. This morning, patient presented for her routine dialysis session again however about 2 hours then, she developed a midsternal chest pain and anxiety. Patient reports the pain is being 10 out of 10. No radiation of the pain into the jaw, neck, shoulder, arm. She denies associated shortness of breath. She reports some mild lightheadedness and dizziness with ambulation, no rate recent syncopal events. Denies fevers and chills. No abdominal pain, nausea, vomiting, diarrhea. She is anuric due to ESRD. In the ED, patient is hemodynamically stable. Labs show mildly elevated troponin 0.147, EKG without acute ST changes. Electrolytes acceptable. Patient was given IV morphine. Admission Exam Per Admitting Provider Constitutional: WD/WN, vitals as above Eyes: PERRL, conjunctivae normal, anicteric sclerae ENMT: external ear and nose normal, oropharynx normal Respiratory: normal respiratory effort, lungs clear to auscultation Cardiovascular: Rate/Rhythm: regular rate and regular rhythm Vessels: normal peripheral pulses Extremities: no edema Chest (Breasts): Additional Comments: Midsternal chest wall tenderness Gastrointestinal (Abdomen): normal bowel sounds, soft, nontender, no hepatosplenomegaly Musculoskeletal: no cyanosis or clubbing, extremities motor strength 5/5 Skin: no rashes, warm and dry Psychiatric: A+Ox3, euthymic affect Principal Diagnosis chest pain Discharge Exam General: A&Ox3 HENT: NCAT, MMM, EOMI Eyes: PERRLA Neck: Supple, normal range of motion CVS: normal rate and rhythm Resp: b/l decrease breath sounds Abdomen: Soft, ND/NT, +BS Extremities: No c/c/e Neuro: face symmetric, strength grossly equal, no focal deficit Skin: warm and dry, no rashes/lesions/errythema MSK: normal ROM, no joint swelling/erythema Discharge Data Allergies Allergy/AdvReac Type Severity Reaction Status Date / Time cefaclor Allergy Intermediate Rash Verified 06/27/21 21:32 amoxicillin AdvReac Mild VOMITING Verified 06/27/21 21:32 clavulanic acid AdvReac Mild VOMITING Verified 06/27/21 21:32 Consultations 06/19/21 11:16 ED Decision to Admit Stat 06/19/21 14:18 Consult Nephrology Routine Hospital Course (1) Chest pain: (2) Elevated troponin: -Admit to telemetry -Patient presenting from dialysis with reports of chest pain/anxiety. Chest pain noted to be reproducible on exam. EKG without acute ST changes. Low suspicion for cardiac chest pain. -On the day of discharge patient was doing okay. She states that her chest pain completely resolved. Patient reported that a few days ago she had bronchitis and she had cough. Patient was hemodynamically stable. Patient was discharged in stable condition (3) CKD (chronic kidney disease) stage V requiring chronic dialysis: -Nephrology consulted for dialysis orders, Dr. Nieves notified -Continue routine renal medications (4) HTN (hypertension): -BP Currently controlled -Continue carvedilol, amlodipine (5) Anemia due to end stage renal disease: -Hgb 8.4, at recent baseline -Monitor CBC (6) DM2 (diabetes mellitus, type 2): -Hgb A1c 8.0 02/2021 -Lantus and NovoLog per protocol while hospitalized Total Time Total Time Spent Total Time Spent (In Minutes): 35 Discharge Plan Discharge Items Patient Disposition: Home - Self-Care Reason For Visit: CHEST PAIN Discharge Diagnosis: Chest pain Condition on Discharge: Fair Activity: Resume your previous activity Non-emergency contact: Primary Care Provider Call non-emergency contact if: your symptoms worsen Follow-up/Referrals: Adolph Aldridge MD [Primary Care Provider] - (Date & Time 06/27/2021 2:20 PM Provider Emelia Flaherty, Department [facility] ) Diet: Dialysis Renal Addtl Attending Provider Instructions: Continue with routine dialysis session. You will need to be evaluated by cardiology before starting Lupron. Pending Studies at Discharge: No Stand-Alone Forms: [employer], Smoking Cessation Medications and DC Order Prescriptions: Continued calcium acetate(phosphat bind) 667 mg capsule 2,001 mg PO WM RF: 0 sertraline 100 mg tablet 150 mg PO QAM RF: 0 Auryxia 210 mg iron tablet 420 mg PO TIDM RF: 0 carvedilol 3.125 mg tablet 3.125 mg PO BID RF: 0 hydroxyzine HCl 25 mg tablet 25 mg PO DAILY PRN (Reason: Anxiety and before Dialysis) RF: 0 albuterol sulfate 90 mcg/actuation HFA aerosol inhaler 2 puff INHALATION QID PRN (Reason: Shortness Of Breath) RF: 0 amlodipine 10 mg Tablet 10 mg PO HS RF: 0 Renal Vitamin 0.8 mg Tablet 1 tab PO QAM RF: 0 lorazepam 0.5 mg tablet 0.5 mg PO DAILY PRN (Reason: anxiety and before dialysis) RF: 0 trazodone 150 mg tablet 150 mg PO HS RF: 0 medroxyprogesterone 150 mg/mL suspension 150 mg IM Q90D RF: 0 cinacalcet [Sensipar] 30 mg Tablet 60 mg PO PM RF: 0 Lantus Solostar U-100 Insulin 100 unit/mL (3 mL) insulin pen 5 unit SUBCUT QAM RF: 0 No Action gabapentin [Neurontin] 400 mg capsule 400 mg PO TID RF: 0 Discharge Orders: Discharge Order (Routine); Ordered 06/20/21 Ordered By: Johnathan Martinez/Other Patient Handouts: A1C, Managing Type 2 Diabetes Admission Data Admit Date/Time: 06/19/21 11:28 Attending Provider: Johnathan Garsia Admit Provider: Johnathan Garsia Primary Care Provider: Adolph Aldridge Other Providers: Leah Nieves ; Johnathan Garsia Other Interventions: Discharge Summary Assessment (RN) Last Done: 06/20/21 18:25
== END 2021-06-20 21:13 | disposition home or self-care (01) ==
LOC: ED 07:57 → 2S 07:57

== ENCOUNTER 2022-01-19 08:32 | Inpatient (IN) ==
[2022-01-19 09:28] LABS: Basophils # (auto) 0.01 K/uL (0-0.2); Basophils % (auto) 0.1 %; Eosinophils # (auto) 0.14 K/uL (0-0.5); Eosinophils % (auto) 1.8 %; Hematocrit (blood only) 31.6 % (37-47); Hemoglobin 10.4 g/dL (12.0-16.0); Immature Granulocytes # (auto) 0.02 K/uL (0.00-0.02); Immature Granulocytes % (auto) 0.3 %; Lymphocytes # (auto) 1.02 K/uL (1.2-3.4); Lymphocytes % (auto) 13.3 %; Mean Corpuscular Hemoglobin 31.9 pg (25-34); Mean Corpuscular Hgb Conc 32.9 g/dL (32-36); Mean Corpuscular Volume 96.9 fL (80-100); Mean Platelet Volume 9.2 fL (7.4-10.4); Monocytes # (auto) 0.32 K/uL (0.11-0.59); Monocytes % (auto) 4.2 %; Neutrophils # (auto) 6.14 K/uL (1.4-6.5); Neutrophils % (auto) 80.3 %; Platelet Count 168 K/uL (130-400); RDW Coefficient of Variation 13.8 % (11.5-14.5); RDW Standard Deviation 49.2 fL (36.4-46.3); Red Blood Count 3.26 M/uL (4.2-5.4); White Blood Count 7.65 K/uL (4.8-10.8)
--- NOTE | 2022-01-19 09:36 | Emergency Department Note ---
Impression & Plan GI bleed, Hyperglycemia due to diabetes mellitus Admit to the [facility] service ED Provider Note NAME: NATHALIA DUTTON AGE: 36 SEX: F ARRIVES VIA: Ambulance INFORMANT: Patient ED PROVIDER(S): Alisa Tejada DO CHIEF COMPLAINT: Bloody stools PLAN: Disposition: Admit to the [facility] Condition: Stable MEDICAL DECISION MAKING: This is a 36-year-old female patient with end-stage renal disease on dialysis who presents to the emergency department with bloody stools. The patient's H&H are stable. On rectal exam, there was bright red blood per rectum. She is hemodynamically stable. I discussed the case with the [facility] Hospitalist and they will evaluate for further management. Triage Nursing notes reviewed and agree with them. Vital Signs: reviewed and remarkable for hypertension Differential diagnosis: Hemorrhoidal bleeding; lower GI bleeding; anemia Diagnostics interpreted by me: Cardiac Monitoring: Normal sinus rhythm at 80 Laboratory studies: See below HPI: 36/F arrives for evaluation of bloody stool. The patient developed bloody stools last night at 10:30 PM with no abdominal pain or other symptoms. She went to dialysis this morning and told them of the events of last evening. They did dialyze her but were hesitant to give her heparin. Unfortunately she clotted off the dialysis machine and they were unable to return her blood to her. They transferred her here for evaluation as she was significantly fatigued and weak. Patient also describes an event from 4 days ago where she was sitting in bed preparing to go to dialysis when she dozed off and fell face first from the bed. She denies any significant injuries from that fall. ROS: See above HPI for pertinent positives & negatives. A total of 10 systems reviewed and were otherwise negative. PAST MEDICAL HISTORY:See Below PAST SURGICAL HISTORY:See Below FAMILY HISTORY:See Below SOCIAL HISTORY:See Below HOME MEDICATIONS: See list ALLERGIES: See list VITALS:See Below PHYSICAL EXAMINATION: HEENT: Head - normocephalic and atraumatic Pupils are equal, round, and reactive to light. Extraocular eye muscles are intact, and sclera are anicteric. Nose - moist nasal mucosa without discharge. Mouth - moist buccal mucosa. Oropharynx is nonerythematous and there is no tonsillar exudate or edema noted. Neck: Supple; no cervical lymphadenopathy or thyromegaly Heart: Regular rate and rhythm. There is a normal S1 and S2 with no murmurs, clicks, or gallops appreciated. Lungs: Clear to auscultation bilaterally with no wheezes, rales, or rhonchi. Abdomen: Soft, completely nontender, nondistended, with good bowel sounds. There are no palpable pulsatile masses or hepatosplenomegaly. There is no guarding, rigidity, or rebound noted. Extremities: No evidence of cyanosis, clubbing, or edema. There are easily palpable peripheral pulses. Skin: warm and dry with good turgor. Multiple scabbed over lesions where the patient had scratched at her self. Rectal exam: There was no stool noted in the rectal vault but there was bright red blood on my gloved finger. There were no obvious hemorrhoids. ED COURSE: Times/Reassessments: 840: The patient was evaluated in room C 11. A complete history and physical was performed. An order was placed for continuous cardiac monitoring. The patient was in a normal sinus rhythm at a rate of 94. A twelve-lead EKG was obtained as described above. An IV lock was initiated and labs were drawn as above. Previous electronic medical records were reviewed. The patient was typed and screened for blood. She remained hemodynamically stable. I discussed the case with the [facility]ist and they will evaluate for further management. Alisa Tejada DO Past Med/Surg History Medical History Anemia due to end stage renal disease Anxiety and depression Asthma "BEEN A WHILE" SINCE USING LAST RESCUE INHALER AVF (arteriovenous fistula) CKD (chronic kidney disease) stage V requiring chronic dialysis Dialysis patient SATURDAY/SAT/SATURDAY AT [facility] DM2 (diabetes mellitus, type 2) ESRD (end stage renal disease) on dialysis Fistula FSGS (focal segmental glomerulosclerosis) DX INITIALLY 2012 (CAUSING ESRD 2012) GERD (gastroesophageal reflux disease) History of abnormal cervical Papanicolaou smear HTN (hypertension) Peripheral neuropathy Prolonged QT interval Restless leg syndrome Surgical History H/O eye surgery LASER SURGERY LEFT H/O hernia repair ABDOMINAL WALL H/O knee surgery LEFT KNEE X 2 H/O tubal ligation H/O: X 2 History of cardiac cath 2017 NO STENTS History of cholecystectomy History of colonoscopy History of tooth extraction three TOOTH Kidney transplant recipient 2013 AT [facility] Family History Grandmother Hx of CABG Mother Diabetes Father Crohn's disease Grandfather (Maternal) Diabetes Uncle Diabetes Social History Smoking Status: Current every day smoker Tobacco Type: Cigarettes Cigarettes Per Day: 20; Second Hand Exposure: No; Hx Alcohol Use: Yes Alcohol type: hard liquor Alcohol Intake Frequency Comment: q3 months Hx Substance Use: Yes Last Used Substance: Hours (ago) Preferred Language: Mongolian Communication Ability: Effective 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 Beliefs That Will Affect Care: None marital status: Current Living Situation: Alone Current Living Situation Comment: Friend How many Children do You have: 3 Feels Safe at Home: Yes Safety Concerns: Feels Safe At This Time Assistive Devices: None Allergies Allergies Allergy/AdvReac Type Severity Reaction Status Date / Time cefaclor Allergy Intermediate Rash Verified 01/19/22 09:33 amoxicillin AdvReac Mild VOMITING Verified 01/19/22 09:33 clavulanic acid AdvReac Mild VOMITING Verified 01/19/22 09:33 Home Meds Home Medications Medication Instructions Recorded Confirmed ferric citrate 210 mg iron tablet 210 - 420 mg PO TIDM 10/17/19 01/19/22 (Auryxia) carvedilol 3.125 mg tablet 3.125 mg PO BID 12/21/19 01/19/22 hydroxyzine HCl 25 mg tablet 25 mg PO DAILY PRN 04/21/20 01/19/22 calcium acetate(phosphat bind) 667 2,001 mg PO TIDM 06/22/20 01/19/22 mg capsule albuterol sulfate 90 mcg/actuation 2 puff INHALATION QID PRN 08/01/20 01/19/22 aerosol inhaler sertraline 100 mg tablet 150 mg PO QAM 08/02/20 01/19/22 amlodipine 10 mg tablet 10 mg PO HS 08/10/20 01/19/22 vitamin B complex-vitamin C-folic 1 tab PO QAM 08/10/20 01/19/22 acid 0.8 mg tablet (Renal Vitamin) cinacalcet 30 mg tablet (Sensipar) 60 mg PO QDD 03/06/21 01/19/22 lorazepam 0.5 mg tablet 0.5 mg PO DAILY PRN 03/06/21 01/19/22 medroxyprogesterone 150 mg/mL 150 mg IM Q90D 03/06/21 01/19/22 intramuscular suspension (Depo-Provera) gabapentin 400 mg capsule 400 mg PO BID 06/27/21 01/19/22 (Neurontin) dicyclomine 10 mg capsule 10 mg PO QID PRN 01/19/22 01/19/22 doxepin 100 mg capsule 200 mg PO HS 01/19/22 01/19/22 mometasone-formoterol HFA 200 2 puff INHALATION BID 01/19/22 01/19/22 mcg-5 mcg/actuation aerosol inhaler (Dulera) omeprazole 20 mg capsule,delayed 20 mg PO HS 01/19/22 01/19/22 release varenicline 0.5 mg tablet 0.5 mg PO BID 01/19/22 01/19/22 Results & Data (ED) Vital Signs Vital Signs - 24 hr 01/19/22 08:42 01/19/22 09:01 01/19/22 09:15 Temperature 36.9 C Temperature Source Oral Pulse Rate 96 H Pulse Rate [Apical] 94 H Pulse Rhythm [Apical] Regular Respiratory Rate 16 16 Respiratory Effort / Characteristics Non-Labored Non-Labored Respiratory Depth Normal Normal Blood Pressure 150/120 H Blood Pressure [Right Arm] 155/97 H Blood Pressure Mean 130 Blood Pressure Mean [Right Arm] 116 Pulse Oximetry 97 97 97 Oxygen Delivery Method Room Air Room Air Room Air Sepsis Recent Fever Within 48 Hours No Sepsis New/Unexplained Change in Mental Status No Sepsis Action Taken by Nursing No Action Required 01/19/22 10:00 Temperature Temperature Source Pulse Rate Pulse Rate [Apical] 96 H Pulse Rhythm [Apical] Respiratory Rate 16 Respiratory Effort / Characteristics Non-Labored Respiratory Depth Normal Blood Pressure Blood Pressure [Right Arm] 140/80 Blood Pressure Mean Blood Pressure Mean [Right Arm] 100 Pulse Oximetry 96 Oxygen Delivery Method Room Air Sepsis Recent Fever Within 48 Hours Sepsis New/Unexplained Change in Mental Status Sepsis Action Taken by Nursing Laboratory Data Result diagrams: 01/19/22 20:45 01/19/22 09:13 Lab Results 01/19/22 01/19/22 01/19/22 Range/Units 09:13 09:13 09:13 WBC 7.65 (4.8-10.8) K/uL RBC 3.26 L (4.2-5.4) M/uL Hgb 10.4 L (12.0-16.0) g/dL Hct 31.6 L (37-47) % MCV 96.9 (80-100) fL MCH 31.9 (25-34) pg MCHC 32.9 (32-36) g/dL RDW Std Deviation 49.2 H (36.4-46.3) fL RDW Coeff of Laith 13.8 (11.5-14.5) % Plt Count 168 (130-400) K/uL MPV 9.2 (7.4-10.4) fL Immature Gran % (Auto) 0.3 % Neut % (Auto) 80.3 % Lymph % (Auto) 13.3 % Nicol[place] % (Auto) 4.2 % Eos % (Auto) 1.8 % Baso % (Auto) 0.1 % Neut # (Auto) 6.14 (1.4-6.5) K/uL Lymph # (Auto) 1.02 L (1.2-3.4) K/uL Nicollet # (Auto) 0.32 (0.11-0.59) K/uL Eos # (Auto) 0.14 (0-0.5) K/uL Baso # (Auto) 0.01 (0-0.2) K/uL Immature Gran # (Auto) 0.02 (0.00-0.02) K/uL PT 10.3 (9.0-12.0) Seconds INR 1.0 (0.9-1.1) APTT 21.3 (21.0-31.0) Seconds PTT Ratio 0.8 Sodium (136-145) mmol/L Potassium (3.5-5.1) mmol/L Chloride (98-107) mmol/L Carbon Dioxide (21-32) mmol/L Anion Gap (3-11) BUN (6-23) mg/dl Creatinine (0.6-1.2) mg/dl Est Cr Clr Drug Dosing Est GFR ( Amer) ml/min Est GFR (Non-Af Amer) ml/min BUN/Creatinine Ratio (10-20) Glucose (70-99(Fasting)) mg/dl Calcium (8.5-10.1) mg/dl Total Bilirubin (0.2-1.0) mg/dl AST (13-39) U/L ALT (7-52) U/L Alkaline Phosphatase (34-104) U/L Total Protein (6.0-8.3) gm/dl Albumin (3.4-5.0) gm/dl Globulin (2.5-4.0) gm/dl Albumin/Globulin Ratio (0.9-2) HCG, Quant mIU/ml SARS-CoV-2, RNA, NAAT (NEGATIVE) Blood Type A Positive Antibody Screen NEGATIVE Crossmatch See Detail 01/19/22 01/19/22 01/19/22 Range/Units 09:13 09:13 09:18 WBC (4.8-10.8) K/uL RBC (4.2-5.4) M/uL Hgb (12.0-16.0) g/dL Hct (37-47) % MCV (80-100) fL MCH (25-34) pg MCHC (32-36) g/dL RDW Std Deviation (36.4-46.3) fL RDW Coeff of Laith (11.5-14.5) % Plt Count (130-400) K/uL MPV (7.4-10.4) fL Immature Gran % (Auto) % Neut % (Auto) % Lymph % (Auto) % Nicollet % (Auto) % Eos % (Auto) % Baso % (Auto) % Neut # (Auto) (1.4-6.5) K/uL Lymph # (Auto) (1.2-3.4) K/uL Nicollet # (Auto) (0.11-0.59) K/uL Eos # (Auto) (0-0.5) K/uL Baso # (Auto) (0-0.2) K/uL Immature Gran # (Auto) (0.00-0.02) K/uL PT (9.0-12.0) Seconds INR (0.9-1.1) APTT (21.0-31.0) Seconds PTT Ratio Sodium 139 (136-145) mmol/L Potassium 3.4 L (3.5-5.1) mmol/L Chloride 96 L (98-107) mmol/L Carbon Dioxide 31 (21-32) mmol/L Anion Gap 12 H (3-11) BUN 38 H (6-23) mg/dl Creatinine 4.95 H* (0.6-1.2) mg/dl Est Cr Clr Drug Dosing Not Reportable Est GFR ( Amer) 12.1 ml/min Est GFR (Non-Af Amer) 10.5 ml/min BUN/Creatinine Ratio 7.7 L (10-20) Glucose 240 H (70-99(Fasting)) mg/dl Calcium 9.3 (8.5-10.1) mg/dl Total Bilirubin 0.5 (0.2-1.0) mg/dl AST 15 (13-39) U/L ALT 12 (7-52) U/L Alkaline Phosphatase 68 (34-104) U/L Total Protein 6.8 (6.0-8.3) gm/dl Albumin 3.9 (3.4-5.0) gm/dl Globulin 2.9 (2.5-4.0) gm/dl Albumin/Globulin Ratio 1.3 (0.9-2) HCG, Quant 3 mIU/ml SARS-CoV-2, RNA, NAAT NEGATIVE (NEGATIVE) Blood Type Antibody Screen Crossmatch Administered Medications Pantoprazole Sodium 40 mg/ (Syringe) 10 mls @ 5 mls/min IV BID NIKKI Stop: 02/18/22 13:29 Last Admin: 01/19/22 15:52 Dose: 5 mls/min Documented by: [id number] Insulin Aspart (Insulin Aspart Per Unit) 0 units SC ACHS NIKKI Stop: 02/18/22 16:29 Last Admin: 01/19/22 20:31 Dose: Not Given Documented by: [id number] Cosigned by: [id number] Admin: 01/19/22 20:11 Dose: Not Given Documented by: [id number] Cosigned by: [id number] Miscellaneous ((Ferric Citrate [Auryxia] 210 Mg Iron Tablet~Order Awaiting Action) 1 ea N/A QS NIKKI Stop: 02/18/22 15:59 Last Admin: 01/19/22 15:52 Dose: Not Given Documented by: [id number] Miscellaneous (Varenicline 0.5 Mg Tablet~Order Awaiting Action) 1 ea N/A QS [facility] Stop: 02/18/22 15:59 Last Admin: 01/19/22 15:52 Dose: Not Given Documented by: [id number] Discontinued Medications Heparin Sodium (Porcine) (Heparin Sod (Porcine) 1000 Unit/Ml) 1,000 units IV ONE ONE Stop: 01/19/22 14:56 Last Admin: 01/19/22 15:54 Dose: Not Given Documented by: [id number] Heparin Sodium (Porcine) (Heparin Sod (Porcine) 1000 Unit/Ml) 400 units IV Q1H [facility] Stop: 01/19/22 17:01 Last Admin: 01/19/22 18:19 Dose: Not Given Documented by: [id number] Admin: 01/19/22 18:18 Dose: Not Given Documented by: [id number] Admin: 01/19/22 18:18 Dose: Not Given Documented by: [id number] Discharge Plan Visit Data Chief Complaint: GI Assessment ED Provider: Alisa Tejada Discharge Problem: GI bleed, Hyperglycemia due to diabetes mellitus Patient Disposition: Admitted As Inpatient Discharge Instructions Interventions: ED Discharge Assessment Last Done: 01/19/22 12:42 Discharge Problem: GI bleed Qualifiers: GI bleed type/associated pathology: unspecified gastrointestinal hemorrhage t ype Qualified Code(s): K92.2 - Gastrointestinal hemorrhage, unspecified
[2022-01-19 09:46] LABS: Partial Thromboplastin Ratio 0.8; Partial Thromboplastin Time 21.3 Seconds (21.0-31.0); Prothrombin Time 10.3 Seconds (9.0-12.0)
[2022-01-19 09:57] LABS: Alanine Aminotransferase 12 U/L (7-52); Albumin Globulin Ratio 1.3 (0.9-2); Albumin Level 3.9 gm/dl (3.4-5.0); Alkaline Phosphatase 68 U/L (34-104); Anion Gap 12 (3-11); Aspartate Aminotransferase 15 U/L (13-39); BUN Creatinine Ratio 7.7 (10-20); Bilirubin,Total 0.5 mg/dl (0.2-1.0); Blood Urea Nitrogen 38 mg/dl (6-23); Calcium 9.3 mg/dl (8.5-10.1); Carbon Dioxide 31 mmol/L (21-32); Chloride 96 mmol/L (98-107); Est GFR (African American) 12.1 ml/min; Est GFR (Non-African American) 10.5 ml/min; Globulin 2.9 gm/dl (2.5-4.0); Glucose 240 mg/dl (70-99(Fasting)); Potassium 3.4 mmol/L (3.5-5.1); Sodium 139 mmol/L (136-145); Total Protein 6.8 gm/dl (6.0-8.3)
[2022-01-19] MEDS ORDERED: SODIUM CHLORIDE 0.9% 250 ML IV PRN (12:43)
--- NOTE | 2022-01-19 12:43 | Gastrointestinal Consultation ---
Date of Consultation January 19, 2022 Assessment & Plan (1) Rectal bleeding: Pt is a 36 yo female seen for rectal bleeding. 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 Blood ct, VS stable, abd exam benign. Last colonoscopy in 2018 w L sided diverticulosis and adenomatous colon polyps. DDx: diverticular bleeding, AVMs, fissure/hemorrhoids - Monitor blood ct and transfuse prn - GI bleeding scan - KUB to eval stool burden ? overflow diarrhea 2/2 constipation. If constipation present, would recommend daily bowel regimen such as with Miralax 17g + Colace 200mg daily - Cdiff and stool cx tests - Eventually plan for outpt colonoscopy in 4-6 week's time - Recall GI over the weekend if any issues/concerns Supervising Physician Co-Signing Physician Notes I saw and evaluated the patient. Patient has a number of complex medical issues to include renal failure on hemodialysis status post renal transplantation. Gastroneurology is consulted for evaluation of intermittent hematochezia over the last 2 to 3 days. Patient reports having intermittent bright red blood per rectum not around stool or mixed with stool. She denies having any dark sticky stool as well. The patient did have a prior colonoscopy a number of years ago notable for internal hemorrhoids and diverticulosis of the colon. Physical examination No obvious distress no tenderness Impression: Patient presenting with intermittent hematochezia, based on the description I wonder about an anal rectal etiology such as hemorrhoids. She does have a history of diverticulosis but the symptoms are not clearly consistent with a diverticular hemorrhage as this is typically more volume and associated with a significant drop in the hemoglobin hematocrit. Recommendations MiraLAX 1 time daily Stool for C. difficile and culture GI bleeding scan Outpatient colonoscopy to be arranged Call with any questions or concerns over the weekend otherwise coverage to resume on Saturday if patient still in hospital History of Present Illness Reason for Consultation: Rectal bleeding Requesting Physician: Dr. Anthony Zendejas Attending Physician: Dr. Mickey Roth History of Present Illness Pt is a 36 yo female who presented to ED w c/o rectal bleeding. Pt w hx of FSGS, ESRD s/p failed kidney transplant allograft currently on HD every M,W, Fr, anemia, DM II. She started having rectal bleeding last night at 10:30p. Stools loose but at baseline per her report. Denies any other associated symptoms including fever, chills, CP, SOB, light headedness, dizziness, abd pain, n/v, rectal pain/burning/itching. She had a total of 4 rectal bleeding episodes from last night till now. Did have Hemodialysis today wo being heparinized. Labs showed stable blood ct wo coagulopathy. She denies uses of ASA or NSAIDs. Quit smoking 1 month ago, no ETOH, illicit drugs. Last colonoscopy done in 2018 showed diverticulosis and adenomatous colon polyps Allergies Allergy/AdvReac Type Severity Reaction Status Date / Time cefaclor Allergy Intermediate Rash Verified 01/19/22 09:33 amoxicillin AdvReac Mild VOMITING Verified 01/19/22 09:33 clavulanic acid AdvReac Mild VOMITING Verified 01/19/22 09:33 Home Medications Medication Instructions Recorded Confirmed Type ferric citrate 210 mg iron tablet 210 - 420 mg PO TIDM 10/17/19 01/19/22 History (Auryxia) carvedilol 3.125 mg tablet 3.125 mg PO BID 12/21/19 01/19/22 History hydroxyzine HCl 25 mg tablet 25 mg PO DAILY PRN 04/21/20 01/19/22 History calcium acetate(phosphat bind) 667 2,001 mg PO TIDM 06/22/20 01/19/22 History mg capsule albuterol sulfate 90 mcg/actuation 2 puff INHALATION QID PRN 08/01/20 01/19/22 History aerosol inhaler sertraline 100 mg tablet 150 mg PO QAM 08/02/20 01/19/22 History amlodipine 10 mg tablet 10 mg PO HS 08/10/20 01/19/22 History vitamin B complex-vitamin C-folic 1 tab PO QAM 08/10/20 01/19/22 History acid 0.8 mg tablet (Renal Vitamin) cinacalcet 30 mg tablet (Sensipar) 60 mg PO QDD 03/06/21 01/19/22 History lorazepam 0.5 mg tablet 0.5 mg PO DAILY PRN 03/06/21 01/19/22 History medroxyprogesterone 150 mg/mL 150 mg IM Q90D 03/06/21 01/19/22 History intramuscular suspension (Depo-Provera) gabapentin 400 mg capsule 400 mg PO BID 06/27/21 01/19/22 History (Neurontin) dicyclomine 10 mg capsule 10 mg PO QID PRN 01/19/22 01/19/22 History doxepin 100 mg capsule 200 mg PO HS 01/19/22 01/19/22 History mometasone-formoterol HFA 200 2 puff INHALATION BID 01/19/22 01/19/22 History mcg-5 mcg/actuation aerosol inhaler (Dulera) omeprazole 20 mg capsule,delayed 20 mg PO HS 01/19/22 01/19/22 History release varenicline 0.5 mg tablet 0.5 mg PO BID 01/19/22 01/19/22 History Patient History Medical History (Updated 01/19/22 @ 12:53 by Maida Harvey PA-C) Anemia due to end stage renal disease Anxiety and depression Asthma "BEEN A WHILE" SINCE USING LAST RESCUE INHALER AVF (arteriovenous fistula) CKD (chronic kidney disease) stage V requiring chronic dialysis Dialysis patient SATURDAY/SAT/SATURDAY AT [facility] DM2 (diabetes mellitus, type 2) ESRD (end stage renal disease) on dialysis Fistula FSGS (focal segmental glomerulosclerosis) DX INITIALLY 2012 (CAUSING ESRD 2012) GERD (gastroesophageal reflux disease) History of abnormal cervical Papanicolaou smear HTN (hypertension) Peripheral neuropathy Prolonged QT interval Restless leg syndrome Surgical History H/O eye surgery LASER SURGERY LEFT H/O hernia repair ABDOMINAL WALL H/O knee surgery LEFT KNEE X 2 H/O tubal ligation H/O: X 2 History of cardiac cath 2016 NO STENTS History of cholecystectomy History of colonoscopy History of tooth extraction three TOOTH Kidney transplant recipient 2013 AT [facility] Family History Grandmother Hx of CABG Mother Diabetes Father Crohn's disease Grandfather (Maternal) Diabetes Uncle Diabetes Social History Smoking Status: Former smoker Tobacco Type: Cigarettes Cigarettes Per Day: 20; Second Hand Exposure: No; Hx Alcohol Use: No Hx Substance Use: No Preferred Language: Tajik Communication Ability: Effective Manager Of Disaster Recovery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 Beliefs That Will Affect Care: None marital status: Current Living Situation: Alone Current Living Situation Comment: Friend How many Children do You have: 3 Feels Safe at Home: Yes Assistive Devices: None Review of Systems Review of Systems: All systems reviewed & are unremarkable except as noted in HPI & below Physical Exam Constitutional: WD/WN, vitals as above well groomed, cooperative and comfortable Eyes: PERRL, conjunctivae normal, anicteric sclerae ENMT: external ear and nose normal, oropharynx normal Respiratory: normal respiratory effort, lungs clear to auscultation Cardiovascular: RRR, no murmur, no edema Gastrointestinal (Abdomen): normal bowel sounds, soft, nontender, no hepatosplenomegaly Rectal exam deferred as already performed by ED physician Skin: no rashes, warm and dry no jaundice Psychiatric: A+Ox3, euthymic affect Lymphatic: no lymphedema Results & Data ([facility]) Vital Signs (Past 12 Hours) Vital Signs Temp Pulse Pulse Resp BP BP Pulse Ox 01/19/22 12:00 93 H 18 144/100 H 97 01/19/22 10:00 96 H 16 140/80 96 01/19/22 09:15 94 H 16 155/97 H 97 01/19/22 09:01 97 01/19/22 08:42 36.9 C 96 H 16 150/120 H 97
--- NOTE | 2022-01-19 12:53 | History & Physical Report ---
Date of Service January 19, 2022 Assessment & Plan (1) Rectal bleeding: (2) BRBPR (bright red blood per rectum): (3) Anemia in ESRD (end-stage renal disease): (4) ESRD (end stage renal disease) on dialysis: (5) HTN (hypertension): (6) Prolonged QT interval: Plan: This is a 36-year-old female who has significant PMH of ESRD on HD with hx of renal transplant followed by Dr. Nieves, HTN, depression with anxiety, chronic anemia, chronically elevated troponin, IBS, former tobacco abuse who presents to [facility] ED secondary to BRBPR x 1 day. Rectal bleeding Bright red blood per rectum Anemia in setting of end-stage renal disease Admit to telemetry Consult GI Cycle H&H every 6 hour Type and cross Per GI KUB, C. difficile and stool studies and GI bleeding scan ordered We will keep n.p.o. for now for GI bleeding scan Hemoglobin stable at 10.4 Symptoms likely secondary to diverticular bleed Patient will need outpatient colonoscopy in 4 to 6 weeks End-stage renal disease on hemodialysis On hemodialysis Saturday Received partial treatment today Consult nephrology for dialysis needs continue phosphate binders T2DM diet controlled aqc 5.9 on 08/2021 [id number] in ED will monitor accuchecks and place on novolog correction factor coverage a1c in a.m. Prolonged QTC pt with prior hx of this pt is on zoloft but no other qtc prolonging meds repeat ecg in a.m. avoid qtc prolonging meds HTN bp stable on amlodipine, coreg hx of tobacco abuse pt has since quit smoking since I last saw her I congratulated her and she will complete her course of chantix Fall and struck head occurred 4 days ago obtain facial and head CT DVT ppx: SCD/TEDS due to rectal bleeding Dispo: tele FULL CODE PCP: Luis Carlos Pt was seen and examined in collaboration with Dr. Zendejas, please see addendum History of Present Illness Chief Complaint: BRBPR x 1 day. Primary Care Provider: Adolph Aldridge MD This is a 36-year-old female who has significant PMH of ESRD on HD with hx of renal transplant followed by Dr. Nieves, HTN, depression with anxiety, chronic anemia, chronically elevated troponin, IBS, former tobacco abuse who presents to [facility] ED secondary to BRBPR x 1 day. Patient states yesterday around 10:30 PM she had a large bowel movement with associated bright red blood per rectum. She noticed blood on the toilet paper as well as in the toilet bowl. She did not think much of it, but then when she woke up this morning she had an additional 3 episodes. At that point in time she was moving just midline, not stool. She is unable to quantify the amount of rectal bleeding, but did state a coated the entire toilet bowl. She has never had anything like this before. She continue to pursue going to hemodialysis. Due to the rectal bleeding they opted to not give her heparin. She was able to sustain approximately 3 hours of treatment, but then she states she, "clogged the machine." They then discussed her case with treasury assistant who recommended she come to ED for further evaluation. In ED patient's hemoglobin was stable at 10.4; however, she was grossly heme positive with bright red blood per ED provider. Patient did have a prior colonoscopy back in 2018 which did reveal 2 polyps and diverticulosis. She denies any abdominal pain, rectal pain or pain with bowel movement, nausea, vomiting, fever, chills or sweats. She further denies any recent illness. She has actually been in good state of health since she quit smoking. She continues to use Chantix. She also has been extremely compliant with hemodialysis. She denies any lightheadedness, dizziness, chest pain, shortness of breath, URI symptoms, cough, urinary symptoms or melena. Her appetite has otherwise been stable. She denies any postprandial abdominal pain. Patient also elicits that she fell out of bed approximately 4 to 5 days ago. She states she woke up and was sitting on the side of her bed and was still very sleepy. She fell back asleep and then she fell out of bed striking her right cheek and right forehead. She does have a headache, but describes headache as her normal off and on headache. She denies any change in vision, hearing or loss of balance. She continues to have right facial pain and is requesting imaging. In ED patient remained hemodynamically stable. Again she was grossly heme positive per ED provider. Hemoglobin stable at 10.4. Allergies Allergy/AdvReac Type Severity Reaction Status Date / Time cefaclor Allergy Intermediate Rash Verified 01/19/22 09:33 amoxicillin AdvReac Mild VOMITING Verified 01/19/22 09:33 clavulanic acid AdvReac Mild VOMITING Verified 01/19/22 09:33 Home Medications Medication Instructions Recorded Confirmed Type ferric citrate 210 mg iron tablet 210 - 420 mg PO TIDM 10/17/19 01/19/22 History (Auryxia) carvedilol 3.125 mg tablet 3.125 mg PO BID 12/21/19 01/19/22 History hydroxyzine HCl 25 mg tablet 25 mg PO DAILY PRN 04/21/20 01/19/22 History calcium acetate(phosphat bind) 667 2,001 mg PO TIDM 06/22/20 01/19/22 History mg capsule albuterol sulfate 90 mcg/actuation 2 puff INHALATION QID PRN 08/01/20 01/19/22 History aerosol inhaler sertraline 100 mg tablet 150 mg PO QAM 08/02/20 01/19/22 History amlodipine 10 mg tablet 10 mg PO HS 08/10/20 01/19/22 History vitamin B complex-vitamin C-folic 1 tab PO QAM 08/10/20 01/19/22 History acid 0.8 mg tablet (Renal Vitamin) cinacalcet 30 mg tablet (Sensipar) 60 mg PO QDD 03/06/21 01/19/22 History lorazepam 0.5 mg tablet 0.5 mg PO DAILY PRN 03/06/21 01/19/22 History medroxyprogesterone 150 mg/mL 150 mg IM Q90D 03/06/21 01/19/22 History intramuscular suspension (Depo-Provera) gabapentin 400 mg capsule 400 mg PO BID 06/27/21 01/19/22 History (Neurontin) dicyclomine 10 mg capsule 10 mg PO QID PRN 01/19/22 01/19/22 History doxepin 100 mg capsule 200 mg PO HS 01/19/22 01/19/22 History mometasone-formoterol HFA 200 2 puff INHALATION BID 01/19/22 01/19/22 History mcg-5 mcg/actuation aerosol inhaler (Dulera) omeprazole 20 mg capsule,delayed 20 mg PO HS 01/19/22 01/19/22 History release varenicline 0.5 mg tablet 0.5 mg PO BID 01/19/22 01/19/22 History Past Med/Surg History Medical History (Updated 01/19/22 @ 12:53 by Maida Harvey PA-C) Anemia due to end stage renal disease Anxiety and depression Asthma "BEEN A WHILE" SINCE USING LAST RESCUE INHALER AVF (arteriovenous fistula) CKD (chronic kidney disease) stage V requiring chronic dialysis Dialysis patient SATURDAY/SAT/SATURDAY AT [facility] DM2 (diabetes mellitus, type 2) ESRD (end stage renal disease) on dialysis Fistula FSGS (focal segmental glomerulosclerosis) DX INITIALLY 2012 (CAUSING ESRD 2012) GERD (gastroesophageal reflux disease) History of abnormal cervical Papanicolaou smear HTN (hypertension) Peripheral neuropathy Prolonged QT interval Restless leg syndrome Surgical History H/O eye surgery LASER SURGERY LEFT H/O hernia repair ABDOMINAL WALL H/O knee surgery LEFT KNEE X 2 H/O tubal ligation H/O: X 2 History of cardiac cath 2016 NO STENTS History of cholecystectomy History of colonoscopy History of tooth extraction three TOOTH Kidney transplant recipient 2013 AT [facility] [address] Family History Grandmother Hx of CABG Mother Diabetes Father Crohn's disease Grandfather (Maternal) Diabetes Uncle Diabetes Social History Smoking Status: Former smoker Tobacco Type: Cigarettes Cigarettes Per Day: 20; Second Hand Exposure: No; Hx Alcohol Use: No Hx Substance Use: No Preferred Language: Cymraes Communication Ability: Effective Box Worker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 Beliefs That Will Affect Care: None marital status: Current Living Situation: Alone Current Living Situation Comment: Friend How many Children do You have: 3 Feels Safe at Home: Yes Assistive Devices: None Review of Systems Review of Systems: All systems reviewed & are unremarkable except as noted in HPI & below Physical Exam Physical Exam: Constitutional: WD/WN, F, vitals as above, NAD, sitting up in bed, pleasant, conversing easily Head: Normocephalic, Atraumatic Eyes: PERRL, conjunctivae normal, anicteric sclerae ENMT: external ear and nose normal, oropharynx normal Neck: trachea midline, no thyromegaly normal visual inspection Respiratory: normal respiratory effort, lungs clear to auscultation, no wheeze, rales, rhonchi. Normal insp/exp effort, no accessory muscle use Cardiovascular: RRR, no murmur, no edema Vessels: no JVD or carotid bruit Chest: normal inspection of chest Abdomen: normal bowel sounds, soft, nontender, no hepatosplenomegaly Musculoskeletal: no cyanosis or clubbing, extremities motor strength 5/5 Skin: no rashes, warm and dry normal turgor Neurologic: PERRL, EOMI, accommodation nl, no face palsy, no dysarthria CN's II-XI intact bilaterally and moves all extremities Psychiatric: A+Ox3, euthymic affect : deferred Results & Data Results & Data ([facility]) Vital Signs (Past 12 Hours) Vital Signs Temp Pulse Pulse Resp BP BP Pulse Ox 01/19/22 12:00 93 H 18 144/100 H 97 01/19/22 10:00 96 H 16 140/80 96 01/19/22 09:15 94 H 16 155/97 H 97 01/19/22 09:01 97 01/19/22 08:42 36.9 C 96 H 16 150/120 H 97 ECG Rate (beats per minute): 94 Rhythm: normal sinus Findings: + prolonged QT (QTC 732) COVID-19 Results Results COVID-19 Adm Lab Results: RBC 3.26 M/uL (4.2-5.4) L 01/19/22 WBC 7.65 K/uL (4.8-10.8) 01/19/22 Hgb 10.4 g/dL (12.0-16.0) L 01/19/22 Hct 31.6 % (37-47) L 01/19/22 Plt Count 168 K/uL (130-400) 01/19/22 Neutrophils (%) (Auto) 80.3 % 01/19/22 Lymphocytes (%) (Auto) 13.3 % 01/19/22 Monocytes # (Auto) 0.32 K/uL (0.11-0.59) 01/19/22 Eosinophils # (Auto) 0.14 K/uL (0-0.5) 01/19/22 Immature Granulocyte % (Auto) 0.3 % 01/19/22 Neutrophils # (Auto) 6.14 K/uL (1.4-6.5) 01/19/22 Lymphocytes # (Auto) 1.02 K/uL (1.2-3.4) L 01/19/22 Monocytes # (Auto) 0.32 K/uL (0.11-0.59) 01/19/22 Eosinophils # (Auto) 0.14 K/uL (0-0.5) 01/19/22 Basophils # (Auto) 0.01 K/uL (0-0.2) 01/19/22 Immature Granulocyte # (Auto) 0.02 K/uL (0.00-0.02) 01/19/22 Na 139 mmol/L (136-145) 01/19/22 K 3.4 mmol/L (3.5-5.1) L 01/19/22 Cl 96 mmol/L (98-107) L 01/19/22 CO2 31 mmol/L (21-32) 01/19/22 Anion Gap 12 (3-11) H 01/19/22 BUN 38 mg/dl (6-23) H 01/19/22 Creatinine 4.95 mg/dl (0.6-1.2) H* 01/19/22 BUN/Creatinine Ratio 7.7 (10-20) L 01/19/22 Glucose Level 240 mg/dl (70-99(Fasting)) H 01/19/22 Ca 9.3 mg/dl (8.5-10.1) 01/19/22 Total Bilirubin 0.5 mg/dl (0.2-1.0) 01/19/22 AST/SGOT 15 U/L (13-39) 01/19/22 ALT/SGPT 12 U/L (7-52) 01/19/22 Alkaline Phosphatase 68 U/L (34-104) 01/19/22 Total Protein 6.8 gm/dl (6.0-8.3) 01/19/22 Albumin 3.9 gm/dl (3.4-5.0) 01/19/22 Globulin 2.9 gm/dl (2.5-4.0) 01/19/22 Albumin/Globulin Ratio 1.3 (0.9-2) 01/19/22 PTT 21.3 Seconds (21.0-31.0) 01/19/22 INR 1.0 (0.9-1.1) 01/19/22 SARS-CoV-2, RNA, NAAT NEGATIVE (NEGATIVE) 01/19/22 Code Status & VTE Plan Code Status FULL CODE VTE Prophylaxis Plan VTE Prophylaxis will be ordered: Yes Supervising Physician Co-Signing Physician Notes Patient is a 36-year-old female with history of end-stage renal disease on hemodialysis, irritable bowel syndrome and other medical problems presents with history of bright red blood per rectum since 1 day duration. Patient also states having some clots that she noted after wiping with toilet paper. She denies any nausea, vomiting, abdominal pain, diarrhea, chest pain, shortness of breath, dizziness, use of NSAIDs, and currently not on any aspirin, blood thinners. Patient had history of diverticulosis, polyps on colonoscopy in 2018. Please review HPI for complete details of presentation. On exam patient is obese, no apparent distress, normocephalic atraumatic, EOMI, normal breath sounds, clear to auscultation, S1-S2, no murmur, no pedal edema, abdomen soft, nontender, normal bowel sounds, alert, awake, oriented, grossly no focal deficits. Blood work suggestive of hemoglobin 10.4, hematocrit 31.6, platelet count 168K, normal INR, Sodium 139, potassium 3.4, chloride 96, creatinine 4.9, glucose 240. KUB currently pending. EKG showed normal sinus rhythm, prolonged QT. Patient is admitted for management of rectal bleeding likely secondary to diverticulosis, polyps. N.p.o. for now. GI consulted. Plan for bleeding scan. KUB pending. Monitor H&H, transfuse PRBCs as needed. Avoid QTC prolonging meds. We will repeat EKG in the morning. Nephrology consulted to assist with dialysis. Avoid anticoagulation, aspirin, NSAIDs. I personally reviewed the record. Patient is interviewed and examined at bedside. Patient's care is coordinated with Maida Harvey PA-C. Please refer to the documentation above for details of patient's presentation and for discussion of other issues. (1) HTN (hypertension) Hypertension type: unspecified Qualified Code(s): I10 - Essential (primary) hypertension
[2022-01-19] MEDS ORDERED: GLUCOSE 40% GEL 15 GM TUBE PO PRN (13:17)
[2022-01-19] MEDS ORDERED: GLUCAGON FOR INJ 1 MG VIAL SQ PRN (13:17)
[2022-01-19] MEDS ORDERED: DEXTROSE 50% 50 ML SYRINGE IV PRN (13:17)
[2022-01-19] MEDS ORDERED: POLYETHYLENE (MIRALAX) 17 GM PACK PO PRN (13:17)
[2022-01-19] MEDS ORDERED: DICYCLOMINE HCL 10 MG CAP PO PRN (13:17)
[2022-01-19] MEDS ORDERED: PROMETHAZINE HCL 6.25 MG in SODIUM CHLORIDE 0.9% 50 ML IV PRN (13:17)
[2022-01-19] MEDS ORDERED: ALBUTEROL HFA 8 GM INHALER INH PRN (13:17)
[2022-01-19] MEDS ORDERED: CARBOHYDRATES FOR HYPOGLYCEMIA PO PRN (13:17)
[2022-01-19] MEDS ORDERED: GLUCOSE 10 TABS/TUBE PO PRN (13:17)
[2022-01-19] MEDS ORDERED: ACETAMINOPHEN 325 MG TAB PO PRN (13:17)
--- NOTE | 2022-01-19 13:52 | CT Scan Report ---
CT head/brain wo con CLINICAL HISTORY: fall Technique: Contiguous axial CT images of the head were acquired from the base of the skull to the nico larissa without intravenous contrast administration. Images were viewed in brain, subdural and [facility]. Automated dose lowering techniques and/or adjustment according to patient size were utilized for this exam. Comparison: Comparison is made to CT head 07/18/2021 Findings: The ventricles, basal cisterns, and cerebral sulci are normal. There is no acute intracranial hemorrh age or evidence of acute territorial infarction. Neither mass effect, shift of the midline structures , nor abnormal extra-axial fluid collections are shown. Imaged portions of the paranasal sinuses and mastoid air cells are clear. The orbits appear normal. There are no acute fractures of the calvaria or scalp swelling. Impression: No acute intracranial hemorrhage, no evidence of acute territorial infarction or other acute intracra nial disease process. ACT 112: Negative or not required by law. Electronically signed by: Mario Holliday M.D. 01/19/2022 1:51 PM
--- NOTE | 2022-01-19 13:53 | CT Scan Report ---
MAXILLOFACIAL CT WITHOUT CONTRAST CLINICAL HISTORY: Fall. COMPARISON STUDY: Facial bone radiographs January 19, 2018. Head CT July 18, 2021. TECHNIQUE: A maxillofacial CT was performed without IV contrast. Coronal and sagittal reformats were viewed. Automated exposure control was utilized for the study. A dose lowering technique was utiliz ed adhering to the principles of ALARA. FINDINGS: No acute facial fracture is identified. Globes are intact. There is no retrobulbar hematoma trauma. Orbital floors are intact. Pterygoid plates are intact. Mucous retention cyst within the lef t maxillary sinus is present. There is mild mucosal thickening of the right maxillary sinus. There is no skull base fracture. No acute fracture within the visualized upper cervical spine is present. Patrick ency within the frontal process of the maxilla is unchanged since CT of March 19, 2021. This is not ac thania. IMPRESSION: No acute facial fracture. ACT 112: Negative or not required by law. Electronically signed by: Sebastian Mcclain M.D. 01/19/2022 1:52 PM
[2022-01-19] MEDS ORDERED: SODIUM CHLORIDE 0.9% 1000ML 1,000 ML IV PRN (14:55)
[2022-01-19] MEDS ORDERED: HEPARIN SOD (PORCINE) 1000 UNIT/ML IV ONE (14:55)
--- NOTE | 2022-01-19 15:11 | Nephrology Consultation ---
Date of Consultation January 19, 2022 Assessment & Plan (1) ESRD (end stage renal disease) on dialysis: ESRD on MWF HD via AVF -2 hr tx today to complete her dialysis for the week -next tx on 01/22 or as clinical needs dictate -will use heparin small amounts/cautiously in circuit despite rectal bleeding since she clotted off dialyzer already x 1 today w/o heparin and earlier this week as well -continue binders and sensipar (2) BRBPR (bright red blood per rectum): per primary service and GI (3) HTN (hypertension): -some permissive HTN while in house for bleeding is reasonable > hold coreg, amlodipine for now -some UF w/ HD -note she is NPO > renal diet and FR 1.5L when /if taking po other than liquid d iet History of Present Illness Reason for Consultation: ESRD on HD Requesting Physician: Dr Zendejas Attending Physician: Anthony Zendejas MD History of Present Illness 36 y/o F whom I'm asked to see for dialysis needs was admitted today for rectal bleeding. 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 Also w/ diet controlled DM, prolonged QT, and recently reformed tobacco abuse (quit in past 6 wks). Also s/p AVF angioplasty on 06/15. States she fell on 01/17 at home and hit R cheek/jaw. her CC at my evaluation are fatigue and some lingering substernal chest discomfo rt, improved after tramadol and morphine, improved to 3/10. no radiation of pain. no exacerbating factors such as activity or po intake. she has no dyspnea or nausea; no diaphoresis, no fever or rigors. CP was reproducible on presentation. ECG has no acute ST segment changes. she had 2 hours of HD today before developing chest discomfort and anxiety and 2 hrs on 06/16 - on 06/16 tx shortened d/t water supply issues at the unit. She reported 4 blood-only bright red BM between 2230 01/18 and 5 AM 01/19. denies hx of hemhorroids. no chest pain, sob, abd pain; denies constipation hx. pt w/ stable VS and we opted to start dialysis w/o heparin while arranging eval of bleeding. VS remained stable during tx. However about 2.5 hrs after tx started, her dialyzer clotted off; blood was unable to be returned. still w/o sx but d/t these events pt sent to [facility] for eval. Hgb on presentation 10.4; no hypotension or hypoxia. GI evaluated her and recommends GI bleeding scan, C diff studies, OP colonoscopy in addition to observation/prn pRBC. Allergies Allergy/AdvReac Type Severity Reaction Status Date / Time cefaclor Allergy Intermediate Rash Verified 01/19/22 09:33 amoxicillin AdvReac Mild VOMITING Verified 01/19/22 09:33 clavulanic acid AdvReac Mild VOMITING Verified 01/19/22 09:33 Home Medications Medication Instructions Recorded Confirmed Type ferric citrate 210 mg iron tablet 210 - 420 mg PO TIDM 10/17/19 01/19/22 History (Auryxia) carvedilol 3.125 mg tablet 3.125 mg PO BID 12/21/19 01/19/22 History hydroxyzine HCl 25 mg tablet 25 mg PO DAILY PRN 04/21/20 01/19/22 History calcium acetate(phosphat bind) 667 2,001 mg PO TIDM 06/22/20 01/19/22 History mg capsule albuterol sulfate 90 mcg/actuation 2 puff INHALATION QID PRN 08/01/20 01/19/22 History aerosol inhaler sertraline 100 mg tablet 150 mg PO QAM 08/02/20 01/19/22 History amlodipine 10 mg tablet 10 mg PO HS 08/10/20 01/19/22 History vitamin B complex-vitamin C-folic 1 tab PO QAM 08/10/20 01/19/22 History acid 0.8 mg tablet (Renal Vitamin) cinacalcet 30 mg tablet (Sensipar) 60 mg PO QDD 03/06/21 01/19/22 History lorazepam 0.5 mg tablet 0.5 mg PO DAILY PRN 03/06/21 01/19/22 History medroxyprogesterone 150 mg/mL 150 mg IM Q90D 03/06/21 01/19/22 History intramuscular suspension (Depo-Provera) gabapentin 400 mg capsule 400 mg PO BID 06/27/21 01/19/22 History (Neurontin) dicyclomine 10 mg capsule 10 mg PO QID PRN 01/19/22 01/19/22 History doxepin 100 mg capsule 200 mg PO HS 01/19/22 01/19/22 History mometasone-formoterol HFA 200 2 puff INHALATION BID 01/19/22 01/19/22 History mcg-5 mcg/actuation aerosol inhaler (Dulera) omeprazole 20 mg capsule,delayed 20 mg PO HS 01/19/22 01/19/22 History release varenicline 0.5 mg tablet 0.5 mg PO BID 01/19/22 01/19/22 History Patient History Medical History Anemia due to end stage renal disease Anxiety and depression Asthma "BEEN A WHILE" SINCE USING LAST RESCUE INHALER AVF (arteriovenous fistula) CKD (chronic kidney disease) stage V requiring chronic dialysis Dialysis patient SATURDAY/SAT/SATURDAY AT [facility] DM2 (diabetes mellitus, type 2) ESRD (end stage renal disease) on dialysis Fistula FSGS (focal segmental glomerulosclerosis) DX INITIALLY 2012 (CAUSING ESRD 2012) GERD (gastroesophageal reflux disease) History of abnormal cervical Papanicolaou smear HTN (hypertension) Peripheral neuropathy Prolonged QT interval Restless leg syndrome Surgical History H/O eye surgery LASER SURGERY LEFT H/O hernia repair ABDOMINAL WALL H/O knee surgery LEFT KNEE X 2 H/O tubal ligation H/O: X 2 History of cardiac cath 2016 NO STENTS History of cholecystectomy History of colonoscopy History of tooth extraction three TOOTH Kidney transplant recipient 2013 AT [facility] Family History Grandmother Hx of CABG Mother Diabetes Father Crohn's disease Grandfather (Maternal) Diabetes Uncle Diabetes Social History Smoking Status: Current every day smoker Tobacco Type: Cigarettes Cigarettes Per Day: 20; Second Hand Exposure: No; Hx Alcohol Use: Yes Alcohol type: hard liquor Alcohol Intake Frequency Comment: q3 months Hx Substance Use: Yes Last Used Substance: Hours (ago) Preferred Language: Macanese Communication Ability: Effective Manager Psychiatry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 Beliefs That Will Affect Care: None marital status: Current Living Situation: Alone Current Living Situation Comment: Friend How many Children do You have: 3 Feels Safe at Home: Yes Safety Concerns: Feels Safe At This Time Assistive Devices: None Review of Systems Review of Systems: All systems reviewed & are unremarkable except as noted in HPI & below Physical Exam Constitutional: well developed, well nourished and cooperative; no acute distress Eyes: EOM intact bilaterally ENMT: Ears: no external ear abnormality Nose: no external nose abnormality Mouth: + dry oral mucous membranes Neck: no nuchal rigidity Respiratory: normal respiratory effort Auscultation: + diminished lung sounds Cardiovascular: Rate/Rhythm: regular rhythm and + tachycardic Extremities: + AV fistula; no edema Gastrointestinal (Abdomen): Inspection/Auscultation: normal bowel sounds Percussion/Palpation: abdomen soft; abdomen nontender Musculoskeletal: Extremities: strength 5/5 throughout Skin: no rashes, warm and dry Neurologic: sandy, fluent speech, no tremor Psychiatric: Orientation: oriented x 3 Results & Data ([facility]) Vital Signs (Past 12 Hours) Vital Signs Temp Pulse Pulse Resp BP BP Pulse Ox 01/19/22 13:43 98 H 01/19/22 13:23 36.7 C 96 H 16 169/101 H 100 01/19/22 12:00 93 H 18 144/100 H 97 01/19/22 10:00 96 H 16 140/80 96 01/19/22 09:15 94 H 16 155/97 H 97 01/19/22 09:01 97 01/19/22 08:42 36.9 C 96 H 16 150/120 H 97 Laboratory Results 01/19/22 09:13 01/19/22 09:[address]/imaging reviewed > no acute process kub report pending (1) HTN (hypertension) Hypertension type: unspecified Qualified Code(s): I10 - Essential (primary) hypertension
[2022-01-19] MEDS: PANTOprazole 40 MG in SYRINGE 0 ML IV SCH ×2 (15:52→21:44)
--- NOTE | 2022-01-19 15:54 | Electrocardiogram Report ---
Test Reason : Blood Pressure : / mmHG Vent. Rate : 094 BPM Atrial Rate : 094 BPM P-R Int : 188 ms QRS Dur : 098 ms QT Int : 586 ms P-R-T Axes : 049 004 035 degrees QTc Int : 732 ms Normal sinus rhythm Prolonged QT Abnormal ECG When compared with ECG of 14-AUG-2021 02:27, QT has lengthened Confirmed by Dash Tejada ([id number]) on 01/19/2022 3:54:39 PM Referred By: Provider Outside Confirmed By:Dash Tejada
--- NOTE | 2022-01-19 15:56 | Nuclear Medicine Report ---
TAGGED RED BLOOD CELL GI BLEEDING SCAN CLINICAL HISTORY: rectal bleeding COMPARISON STUDY: CT of the abdomen and pelvis June 30, 2021. TECHNIQUE: Following the IV administration of 30 mCi of technetium 99m UltraTag labeled red blood scott ls, nuclear bleeding scan was performed. Anterior flow images were obtained every 2 seconds for a tot al 48 seconds. Anterior static images were obtained every 5 minutes for a total of 60 minutes. FINDINGS: Normal radiotracer distribution is noted. There is no evidence for active GI bleed during this 60 minute study. No foci of abnormal radiotracer uptake are present. IMPRESSION: No evidence for active GI bleed during this 60 minute study. ACT 112: Negative or not required by law. Electronically signed by: Sebastian Mcclain M.D. 01/19/2022 3:54 PM
--- NOTE | 2022-01-19 15:59 | XRay Report ---
XR KUB/Abdomen 1 view CLINICAL HISTORY: eval stool burden TECHNIQUE: 1 view of the abdomen was obtained. Comparison: None available at the time of this dictation. FINDINGS: Lung bases are unremarkable. The osseous structures are grossly unremarkable. The bowel gas pattern i s nonobstructive. Small stool burden is seen. Redemonstration of a calcified mass projecting over the right iliac crest. IMPRESSION: Small stool burden. ACT 112: Negative or not required by law. Electronically signed by: Mario Holliday M.D. 01/19/2022 3:58 PM
[2022-01-19] MEDS: HEPARIN SOD (PORCINE) 1000 UNIT/ML IV SCH ×2 (18:18→18:19)
[2022-01-19] MEDS: INSULIN ASPART PER UNIT SC SCH ×2 (20:11→20:31)
[2022-01-19 21:00] LABS: Hematocrit (blood only) 34.8 % (37-47); Hemoglobin 11.1 g/dL (12.0-16.0)
[2022-01-19] MEDS: CALCIUM ACETATE 667 MG CAP/TAB PO SCH (21:45)
[2022-01-19] MEDS: GABAPENTIN 400 MG CAP PO SCH (21:45)
[2022-01-19] MEDS: CINACALCET HCL 30 MG TAB PO SCH (21:45)
[2022-01-19] MEDS: carvediloL 3.125 MG TAB PO SCH (21:45)
[2022-01-19] MEDS: DOXEPIN HCL 50 MG CAPSULE PO SCH (21:46)
[2022-01-19] MEDS: amLODIPine BESYLATE 5 MG TAB PO SCH (22:07)
[2022-01-19] MEDS: LORazepam 0.5 MG TAB PO PRN (22:08)
[2022-01-19] MEDS: hydrOXYzine HCl 25 MG TAB PO PRN (22:08)
[2022-01-19 22:50] LABS: Adenovirus F 40/41 PCR Not Detected (NotDetected); Astrovirus PCR Not Detected (NotDetected); Campylobacter PCR Not Detected (NotDetected); Cryptosporidium PCR Not Detected (NotDetected); Cyclospora cayetanensis PCR Not Detected (NotDetected); Entamoeba histolytica PCR Not Detected (NotDetected); Enteroaggregative E.coli(EAEC) Not Detected (NotDetected); Enteropathogenic E.coli (EPEC) Not Detected (NotDetected); Enterotoxigenic E.coli (ETEC) Not Detected (NotDetected); Giardia lamblia PCR Not Detected (NotDetected); Norovirus GI/GII PCR Not Detected (NotDetected); Plesiomonas shigelloides PCR Not Detected (NotDetected); Rotavirus A PCR Not Detected (NotDetected); Salmonella PCR Not Detected (NotDetected); Sapovirus PCR Not Detected (NotDetected); Shiga-like Toxin E.coli (STEC) Not Detected (NotDetected); Shigella/Enteroinvasive E.coli Not Detected (NotDetected); Vibrio cholerae PCR Not Detected (NotDetected); Vibrio species PCR Not Detected (NotDetected); Yersinia enterocolitica PCR Not Detected (NotDetected)
[2022-01-20 00:11] LABS: Cdiff Antigen Positive; Cdiff Toxin A+B Negative Cdiff Toxin (Negative)
[2022-01-20 04:55] LABS: Basophils # (auto) 0.02 K/uL (0-0.2); Basophils % (auto) 0.3 %; Eosinophils # (auto) 0.13 K/uL (0-0.5); Eosinophils % (auto) 1.9 %; Hematocrit (blood only) 32.2 % (37-47); Hemoglobin 10.4 g/dL (12.0-16.0); Immature Granulocytes # (auto) 0.01 K/uL (0.00-0.02); Immature Granulocytes % (auto) 0.1 %; Lymphocytes # (auto) 1.19 K/uL (1.2-3.4); Lymphocytes % (auto) 17.2 %; Mean Corpuscular Hemoglobin 32.6 pg (25-34); Mean Corpuscular Hgb Conc 32.3 g/dL (32-36); Mean Corpuscular Volume 100.9 fL (80-100); Mean Platelet Volume 9.7 fL (7.4-10.4); Monocytes # (auto) 0.38 K/uL (0.11-0.59); Monocytes % (auto) 5.5 %; Platelet Count 170 K/uL (130-400); RDW Coefficient of Variation 13.9 % (11.5-14.5); RDW Standard Deviation 51.3 fL (36.4-46.3); Red Blood Count 3.19 M/uL (4.2-5.4); White Blood Count 6.93 K/uL (4.8-10.8)
[2022-01-20 05:33] LABS: Alanine Aminotransferase 12 U/L (7-52); Albumin Globulin Ratio 1.3 (0.9-2); Albumin Level 3.9 gm/dl (3.4-5.0); Alkaline Phosphatase 66 U/L (34-104); Anion Gap 13 (3-11); Aspartate Aminotransferase 15 U/L (13-39); BUN Creatinine Ratio 6.9 (10-20); Bilirubin,Total 0.5 mg/dl (0.2-1.0); Blood Urea Nitrogen 37 mg/dl (6-23); Calcium 9.3 mg/dl (8.5-10.1); Carbon Dioxide 29 mmol/L (21-32); Chloride 99 mmol/L (98-107); Est GFR (African American) 11.1 ml/min; Est GFR (Non-African American) 9.6 ml/min; Globulin 2.9 gm/dl (2.5-4.0); Glucose 165 mg/dl (70-99(Fasting)); Magnesium 2.2 mg/dl (1.7-2.4); Sodium 141 mmol/L (136-145); Total Protein 6.8 gm/dl (6.0-8.3)
[2022-01-20] MEDS: CALCIUM ACETATE 667 MG CAP/TAB PO SCH ×3 (07:53→17:10)
[2022-01-20] MEDS: INSULIN ASPART PER UNIT SC SCH ×4 (07:54→20:27)
[2022-01-20] MEDS: AURYXIA PO SCH ×4 (07:54→17:09)
[2022-01-20] MEDS: PANTOprazole 40 MG in SYRINGE 0 ML IV SCH ×2 (07:55→20:38)
[2022-01-20] MEDS: FLUTICASONE/VILANTEROL 200/25MCG 14 PUFFS/INHALER INH SCH (07:55)
[2022-01-20] MEDS: SERTRALINE HCL 50 MG TABLET PO SCH (07:55)
[2022-01-20 08:59] LABS: Estimated Average Glucose 157 mg/dl; Hemoglobin A1C 7.1 % (4.5-5.6)
--- NOTE | 2022-01-20 09:45 | Gastroenterology Progress Note ---
Date of Service January 20, 2022 Assessment & Plan (1) Rectal bleeding: Plan: Patient with intermittent hematochezia. Based on the patient's history I would favor an anorectal etiology such as hemorrhoids or perhaps arteriovenous malformations given her history of renal disease. As there is been no significant drop in her hemoglobin or hematocrit and the GI bleeding scan was negative would recommend colonoscopy over the next few weeks as an outpatient. In the meantime would suggest use of MiraLAX 17 g/day. Please call with any additional questions or concerns GI to sign off for the present time Recommendation MiraLAX 17 g daily Outpatient colonoscopy to be scheduled Is call with any questions or concerns Admission and Anticipated Discharge Date Admission Date: January 19, 2022 Subjective The patient is somewhat of a poor historian and notes that she did have a small amount of bleeding with a bowel movement overnight however there is been no appreciable drop in her hemoglobin or hematocrit. Review of Systems Constitutional: + malaise; no fever and no sweats Respiratory: no change in sputum and no hemoptysis Cardiovascular: no chest pain with activity Physical Exam Constitutional: + morbidly obese; no acute distress Neck: trachea midline, no thyromegaly Respiratory: Auscultation: + diminished lung sounds; no crackles and no rales Cardiovascular: Heart Sounds: + murmur Gastrointestinal (Abdomen): Percussion/Palpation: abdomen soft; abdomen nontender and no guarding Results & Data ([facility]) Vital Signs (Past 12 Hours) Vital Signs Temp Pulse Pulse Resp BP Pulse Ox 01/20/22 08:00 95 H 01/20/22 06:34 36.7 C 96 H 16 157/100 H 95 01/20/22 02:50 37.1 C 92 H 20 149/88 H 92 01/20/22 00:06 95 H 01/19/22 22:56 36.6 C 95 H 20 138/89 96 Laboratory Results Laboratory Results - last 24 hr 01/19/22 01/19/22 01/19/22 09:13 09:13 09:13 WBC RBC Hgb Hct MCV MCH MCHC RDW Std Deviation RDW Coeff of Laith Plt Count MPV Immature Gran % (Auto) Neut % (Auto) Lymph % (Auto) Valencia % (Auto) Eos % (Auto) Baso % (Auto) Neut # (Auto) Lymph # (Auto) Valencia # (Auto) Eos # (Auto) Baso # (Auto) Immature Gran # (Auto) PT 10.3 INR 1.0 APTT 21.3 PTT Ratio 0.8 Sodium 139 Potassium 3.4 L Chloride 96 L Carbon Dioxide 31 Anion Gap 12 H BUN 38 H Creatinine 4.95 H* Est Cr Clr Drug Dosing Not Reportable Est GFR ( Amer) 12.1 Est GFR (Non-Af Amer) 10.5 BUN/Creatinine Ratio 7.7 L Glucose 240 H POC Glucose Estimat Average Glucose Hemoglobin A1c Calcium 9.3 Magnesium Total Bilirubin 0.5 AST 15 ALT 12 Alkaline Phosphatase 68 Total Protein 6.8 Albumin 3.9 Globulin 2.9 Albumin/Globulin Ratio 1.3 HCG, Quant Nasal Screen MRSA (PCR) Stl C. cayetanensis PCR Stool Rotavirus A PCR Stl Adenov F 40/41 PCR Stool Astrovirus (PCR) Stool Campylobacter PCR Stl C. diff Tox B Gene Stl C.difficile Tox A&B Stl C. diff Tox A/B PCR Stool Cryptosporidium PCR Stl E.coli Shiga Tox PCR Stl Enterotoxigenic E PCR Stool EPEC (PCR) Stool EAEC (PCR) Stl E. histolytica PCR Stool Giardia Lamblia PCR Stool Salmonella PCR Stool Sapovirus (PCR) Stl P. shigelloides PCR Stl Shigella/EIEC PCR St Y.enterocolitica PCR Stool Vibrio (PCR) Stl Vibrio cholerae PCR Stl Norovirus GI/GII PCR Blood Type A Positive Antibody Screen NEGATIVE Crossmatch See Detail 01/19/22 01/19/22 01/19/22 09:13 20:16 20:45 WBC RBC Hgb 11.1 L Hct 34.8 L MCV MCH MCHC RDW Std Deviation RDW Coeff of Laith Plt Count MPV Immature Gran % (Auto) Neut % (Auto) Lymph % (Auto) Valencia % (Auto) Eos % (Auto) Baso % (Auto) Neut # (Auto) Lymph # (Auto) Valencia # (Auto) Eos # (Auto) Baso # (Auto) Immature Gran # (Auto) PT INR APTT PTT Ratio Sodium Potassium Chloride Carbon Dioxide Anion Gap BUN Creatinine Est Cr Clr Drug Dosing Est GFR ( Amer) Est GFR (Non-Af Amer) BUN/Creatinine Ratio Glucose POC Glucose 129 H Estimat Average Glucose Hemoglobin A1c Calcium Magnesium Total Bilirubin AST ALT Alkaline Phosphatase Total Protein Albumin Globulin Albumin/Globulin Ratio HCG, Quant 3 Nasal Screen MRSA (PCR) Stl C. cayetanensis PCR Stool Rotavirus A PCR Stl Adenov F 40 PCR Stool Astrovirus (PCR) Stool Campylobacter PCR Stl C. diff Tox B Gene Stl C.difficile Tox A&B Stl C. diff Tox A/B PCR Stool Cryptosporidium PCR Stl E.coli Shiga Tox PCR Stl Enterotoxigenic E PCR Stool EPEC (PCR) Stool EAEC (PCR) Stl E. histolytica PCR Stool Giardia Lamblia PCR Stool Salmonella PCR Stool Sapovirus (PCR) Stl P. shigelloides PCR Stl Shigella/EIEC PCR St Y.enterocolitica PCR Stool Vibrio (PCR) Stl Vibrio cholerae PCR Stl Norovirus GI/GII PCR Blood Type Antibody Screen Crossmatch 01/19/22 01/19/22 01/19/22 20:45 20:45 20:45 WBC RBC Hgb Hct MCV MCH MCHC RDW Std Deviation RDW Coeff of Laith Plt Count MPV Immature Gran % (Auto) Neut % (Auto) Lymph % (Auto) Valencia % (Auto) Eos % (Auto) Baso % (Auto) Neut # (Auto) Lymph # (Auto) Valencia # (Auto) Eos # (Auto) Baso # (Auto) Immature Gran # (Auto) PT INR APTT PTT Ratio Sodium Potassium Chloride Carbon Dioxide Anion Gap BUN Creatinine Est Cr Clr Drug Dosing Est GFR ( Amer) Est GFR (Non-Af Amer) BUN/Creatinine Ratio Glucose POC Glucose Estimat Average Glucose Hemoglobin A1c Calcium Magnesium Total Bilirubin AST ALT Alkaline Phosphatase Total Protein Albumin Globulin Albumin/Globulin Ratio HCG, Quant Nasal Screen MRSA (PCR) Negative Stl C. cayetanensis PCR Not Detected Stool Rotavirus A PCR Not Detected Stl Adenov F PCR Not Detected Stool Astrovirus (PCR) Not Detected Stool Campylobacter PCR Not Detected Stl C. diff Tox B Gene Cancelled Stl C.difficile Tox A&B Negative Cdiff Toxin Stl C. diff Tox A/B PCR C.diff Gene Detected A Stool Cryptosporidium PCR Not Detected Stl E.coli Shiga Tox PCR Not Detected Stl Enterotoxigenic E PCR Not Detected Stool EPEC (PCR) Not Detected Stool EAEC (PCR) Not Detected Stl E. histolytica PCR Not Detected Stool Giardia Lamblia PCR Not Detected Stool Salmonella PCR Not Detected Stool Sapovirus (PCR) Not Detected Stl P. shigelloides PCR Not Detected Stl Shigella/EIEC PCR Not Detected St Y.enterocolitica PCR Not Detected Stool Vibrio (PCR) Not Detected Stl Vibrio cholerae PCR Not Detected Stl Norovirus GI/GII PCR Not Detected Blood Type Antibody Screen Crossmatch 01/20/22 01/20/22 01/20/22 00:17 03:44 03:44 WBC 6.93 RBC 3.19 L Hgb 10.4 L Hct 32.2 L MCV 100.9 H MCH 32.6 MCHC 32.3 RDW Std Deviation 51.3 H RDW Coeff of Laith 13.9 Plt Count 170 MPV 9.7 Immature Gran % (Auto) 0.1 Neut % (Auto) 75.0 Lymph % (Auto) 17.2 Valencia % (Auto) 5.5 Eos % (Auto) 1.9 Baso % (Auto) 0.3 Neut # (Auto) 5.20 Lymph # (Auto) 1.19 L Valencia # (Auto) 0.38 Eos # (Auto) 0.13 Baso # (Auto) 0.02 Immature Gran # (Auto) 0.01 PT INR APTT PTT Ratio Sodium 141 Potassium 4.0 Chloride 99 Carbon Dioxide 29 Anion Gap 13 H BUN 37 H Creatinine 5.34 H* D Est Cr Clr Drug Dosing Not Reportable Est GFR ( Amer) 11.1 Est GFR (Non-Af Amer) 9.6 BUN/Creatinine Ratio 6.9 L Glucose 165 H POC Glucose 143 H Estimat Average Glucose Hemoglobin A1c Calcium 9.3 Magnesium 2.2 Total Bilirubin 0.5 AST 15 ALT 12 Alkaline Phosphatase 66 Total Protein 6.8 Albumin 3.9 Globulin 2.9 Albumin/Globulin Ratio 1.3 HCG, Quant Nasal Screen MRSA (PCR) Stl C. cayetanensis PCR Stool Rotavirus A PCR Stl Adenov F 40/41 PCR Stool Astrovirus (PCR) Stool Campylobacter PCR Stl C. diff Tox B Gene Stl C.difficile Tox A&B Stl C. diff Tox A/B PCR Stool Cryptosporidium PCR Stl E.coli Shiga Tox PCR Stl Enterotoxigenic E PCR Stool EPEC (PCR) Stool EAEC (PCR) Stl E. histolytica PCR Stool Giardia Lamblia PCR Stool Salmonella PCR Stool Sapovirus (PCR) Stl P. shigelloides PCR Stl Shigella/EIEC PCR St Y.enterocolitica PCR Stool Vibrio (PCR) Stl Vibrio cholerae PCR Stl Norovirus GI/GII PCR Blood Type Antibody Screen Crossmatch 01/20/22 01/20/22 01/20/22 03:44 06:20 07:31 WBC RBC Hgb Hct MCV MCH MCHC RDW Std Deviation RDW Coeff of Laith Plt Count MPV Immature Gran % (Auto) Neut % (Auto) Lymph % (Auto) Valencia % (Auto) Eos % (Auto) Baso % (Auto) Neut # (Auto) Lymph # (Auto) Valencia # (Auto) Eos # (Auto) Baso # (Auto) Immature Gran # (Auto) PT INR APTT PTT Ratio Sodium Potassium Chloride Carbon Dioxide Anion Gap BUN Creatinine Est Cr Clr Drug Dosing Est GFR ( Amer) Est GFR (Non-Af Amer) BUN/Creatinine Ratio Glucose POC Glucose 186 H 203 H Estimat Average Glucose 157 Hemoglobin A1c 7.1 H Calcium Magnesium Total Bilirubin AST ALT Alkaline Phosphatase Total Protein Albumin Globulin Albumin/Globulin Ratio HCG, Quant Nasal Screen MRSA (PCR) Stl C. cayetanensis PCR Stool Rotavirus A PCR Stl Adenov F 40/41 PCR Stool Astrovirus (PCR) Stool Campylobacter PCR Stl C. diff Tox B Gene Stl C.difficile Tox A&B Stl C. diff Tox A/B PCR Stool Cryptosporidium PCR Stl E.coli Shiga Tox PCR Stl Enterotoxigenic E PCR Stool EPEC (PCR) Stool EAEC (PCR) Stl E. histolytica PCR Stool Giardia Lamblia PCR Stool Salmonella PCR Stool Sapovirus (PCR) Stl P. shigelloides PCR Stl Shigella/EIEC PCR St Y.enterocolitica PCR Stool Vibrio (PCR) Stl Vibrio cholerae PCR Stl Norovirus GI/GII PCR Blood Type Antibody Screen Crossmatch Diagnostic Findings AGGED RED BLOOD CELL GI BLEEDING SCAN CLINICAL HISTORY: rectal bleeding COMPARISON STUDY: CT of the abdomen and pelvis June 30, 2021. TECHNIQUE: Following the IV administration of 30 mCi of technetium 99m UltraTag labeled red blood cells, nuclear bleeding scan was performed. Anterior flow images were obtained every 2 seconds for a total 48 seconds. Anterior static images were obtained every 5 minutes for a total of 60 minutes. FINDINGS: Normal radiotracer distribution is noted. There is no evidence for active GI bleed during this 60 minute study. No foci of abnormal radiotracer uptake are present. IMPRESSION: No evidence for active GI bleed during this 60 minute study.
[2022-01-20] MEDS: carvediloL 3.125 MG TAB PO SCH ×2 (10:14→20:39)
[2022-01-20] MEDS: NEPHROCAPS PO SCH (10:14)
[2022-01-20] MEDS: GABAPENTIN 400 MG CAP PO SCH ×2 (10:14→17:10)
[2022-01-20 12:21] LABS: Hematocrit (blood only) 31.4 % (37-47); Hemoglobin 10.1 g/dL (12.0-16.0)
[2022-01-20] MEDS: AURYXIA PO PRN (12:27)
--- NOTE | 2022-01-20 13:26 | Hospitalist Progress Note ---
Date of Service January 20, 2022 Assessment & Plan (1) Rectal bleeding: (2) BRBPR (bright red blood per rectum): (3) Anemia in ESRD (end-stage renal disease): (4) ESRD (end stage renal disease) on dialysis: (5) HTN (hypertension): (6) Prolonged QT interval: Plan: This is a 36-year-old female who has significant PMH of ESRD on HD with hx of renal transplant followed by Dr. Nieves, HTN, depression with anxiety, chronic anemia, chronically elevated troponin, IBS, former tobacco abuse who presents to [facility] ED secondary to BRBPR x 1 day. Rectal bleeding Bright red blood per rectum Anemia in setting of end-stage renal disease No more bleeding since admission H&H remained stable patient denies any acute distress Per GI KUB, C. difficile and stool studies and GI bleeding scan ordered-negative C. difficile toxin but positive C. difficile gene Appreciate GI input and recommendation of doing outpatient colonoscopy Remains stable otherwise End-stage renal disease on hemodialysis On hemodialysis Saturday Received partial treatment today Consult nephrology for dialysis needs-appreciate nephrology input and recommendation continue phosphate binders T2DM diet controlled aqc 5.9 on 08/2021 [id number] in ED will monitor accuchecks and place on novolog correction factor coverage a1c in a.m.-7.1 Prolonged QTC pt with prior hx of this pt is on zoloft but no other qtc prolonging meds repeat ecg in a.m. avoid qtc prolonging meds HTN bp stable on amlodipine, coreg hx of tobacco abuse pt has since quit smoking since I last saw her I congratulated her and she will complete her course of chantix Fall and struck head occurred 4 days ago obtain facial and head CT DVT ppx: SCD/TEDS due to rectal bleeding Dispo: tele FULL CODE PCP: Luis Carlos Likely discharge tomorrow Admission and Anticipated Discharge Date Admission Date: January 19, 2022 Subjective 01/20/2022 The patient was seen and examined in medical telemetry unit She was admitted yesterday with acute rectal bleeding Remains drowsy today and denies any more bleeding Denies any other significant symptoms Review of Systems Review of Systems: All systems reviewed and are unremarkable except as noted below Physical Exam Physical Exam: Lying in bed with little drowsy without any acute distress Constitutional: well developed, well nourished, + ill appearing and + obese Eyes: PERRL, conjunctivae normal, anicteric sclerae ENMT: external ear and nose normal, oropharynx normal Neck: trachea midline, no thyromegaly Respiratory: no respiratory distress Auscultation: + diminished lung sounds and + crackles (Minimal crackles at the bases) Cardiovascular: Rate/Rhythm: regular rate, regular rhythm and + tachycardic Heart Sounds: normal S1 and normal S2; no murmur Extremities: + edema (Trace edema bilaterally) Gastrointestinal (Abdomen): Inspection/Auscultation: normal bowel sounds; abdomen not distended Percussion/Palpation: abdomen soft; abdomen nontender Neurologic: Alert, 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. Generally very weak and lethargic Lymphatic: no cervical or axillary lymphadenopathy Results & Data Results & Data ([facility]) Vital Signs (Past 12 Hours) Vital Signs Temp Pulse Pulse Resp BP Pulse Ox 01/20/22 11:05 36.9 C 99 H 18 156/94 H 94 01/20/22 08:00 95 H 01/20/22 06:34 36.7 C 96 H 16 157/100 H 95 01/20/22 02:50 37.1 C 92 H 20 149/88 H 92 Laboratory Results Short CBC 01/19/22 01/20/22 01/20/22 Range/Units 20:45 03:44 12:01 WBC 6.93 (4.8-10.8) K/uL Hgb 11.1 L 10.4 L 10.1 L (12.0-16.0) g/dL Hct 34.8 L 32.2 L 31.4 L (37-47) % Plt Count 170 (130-400) K/uL BMP 01/20/22 03:44 Sodium 141 Potassium 4.0 Chloride 99 Carbon Dioxide 29 BUN 37 H Creatinine 5.34 H* D Glucose 165 H Calcium 9.3 Liver Function 01/20/22 Range/Units 03:44 Total Bilirubin 0.5 (0.2-1.0) mg/dl AST 15 (13-39) U/L ALT 12 (7-52) U/L Alkaline Phosphatase 66 (34-104) U/L Albumin 3.9 (3.4-5.0) gm/dl Medications Administered Current Inpatient Medications Acetaminophen (Acetaminophen 325 Mg Tab) 650 mg PO Q4H PRN PRN Reason: Pain or Fever Stop: 02/18/22 13:16 Albuterol (Albuterol Hfa 8 Gm Inhaler) 2 puffs INH QID PRN PRN Reason: Shortness Of Breath Stop: 02/18/22 13:16 Amlodipine Besylate (Amlodipine Besylate 5 Mg Tab) 10 mg PO HS NIKKI Stop: 02/18/22 20:59 Last Admin: 01/19/22 22:07 Dose: 10 mg Documented by: Calcium Acetate (Calcium Acetate 667 Mg Cap/Tab) 2,001 mg PO TIDM NIKKI Stop: 02/18/22 16:59 Last Admin: 01/20/22 07:53 Dose: Not Given Documented by: Carvedilol (Carvedilol 3.125 Mg Tab) 3.125 mg PO BID NIKKI Stop: 02/18/22 20:59 Last Admin: 01/20/22 10:14 Dose: 3.125 mg Documented by: Cinacalcet (Cinacalcet Hcl 30 Mg Tab) 60 mg PO QDD NIKKI Stop: 02/18/22 16:29 Last Admin: 01/19/22 21:45 Dose: 60 mg Documented by: Dextrose (Dextrose 50% 50 Ml Syringe) 25 - 50 ml IV UD PRN; Protocol PRN Reason: Hypoglycemia Protocol Stop: 02/18/22 13:16 Dicyclomine HCl (Dicyclomine Hcl 10 Mg Cap) 10 mg PO QID PRN PRN Reason: abdominal pain Stop: 02/18/22 13:16 Doxepin HCl (Doxepin Hcl 50 Mg Capsule) 200 mg PO HS [facility] Stop: 02/18/22 20:59 Last Admin: 01/19/22 21:46 Dose: 200 mg Documented by: Fluticasone/Vilanterol (Fluticasone/Vilanterol 200/25mcg 14 Puffs/Inhaler) 1 puffs INH DAILY NIKKI Stop: 02/19/22 08:59 Last Admin: 01/20/22 07:55 Dose: 1 puffs Documented by: Gabapentin (Gabapentin 400 Mg Cap) 400 mg PO BIDM NIKKI Stop: 02/18/22 16:59 Last Admin: 01/20/22 10:14 Dose: 400 mg Documented by: Glucagon (Glucagon For Inj 1 Mg Vial) 1 mg SQ UD PRN; Protocol PRN Reason: Hypoglycemia Protocol Stop: 02/18/22 13:16 Glucose (Glucose 10 Tabs/Tube) 4 - 8 tabs PO UD PRN; Protocol PRN Reason: Hypoglycemia Protocol Stop: 02/18/22 13:16 Glucose (Glucose 40% Gel 15 Gm Tube) 15 - 30 gm PO UD PRN; Protocol PRN Reason: Hypoglycemia Protocol Stop: 02/18/22 13:16 Hydroxyzine HCl (Hydroxyzine Hcl 25 Mg Tab) 25 mg PO DAILY PRN PRN Reason: Anxiety and before Dialysis Stop: 02/18/22 13:16 Last Admin: 01/19/22 22:08 Dose: 25 mg Documented by: Sodium Chloride (Nss) 250 mls @ 15 mls/hr IV .[id number] PRN PRN Reason: For Transfusion Stop: 02/18/22 12:42 Pantoprazole Sodium 40 mg/ (Syringe) 10 mls @ 5 mls/min IV BID NIKKI Stop: 02/18/22 13:29 Last Admin: 01/20/22 07:55 Dose: 5 mls/min Documented by: Promethazine HCl 6.25 mg/ (Sodium Chloride) 50.25 mls @ 201 mls/hr IV Q6H PRN PRN Reason: Nausea And Vomiting Stop: 02/18/22 13:16 Insulin Aspart (Insulin Aspart Per Unit) 0 units SC ACHS [facility] Stop: 02/18/22 16:29 Last Admin: 01/20/22 12:27 Dose: 1 units Documented by: Lorazepam (Lorazepam 0.5 Mg Tab) 0.5 mg PO DAILY PRN PRN Reason: anxiety and before dialysis Stop: 02/18/22 13:16 Last Admin: 01/19/22 22:08 Dose: 0.5 mg Documented by: Miscellaneous (Carbohydrates For Hypoglycemia ) 15 - 30 gm PO UD PRN PRN Reason: Hypoglycemia Protocol Stop: 02/18/22 13:16 Miscellaneous (Varenicline 0.5 Mg Tablet~Order Awaiting Action) 1 ea N/A QS [facility] Stop: 02/18/22 15:59 Last Admin: 01/20/22 07:54 Dose: Not Given Documented by: Radha~Non- Formulary Patient's Own Med 2 ea PO TIDM [facility] Stop: 02/19/22 00:00 Last Admin: 05/28/22 12:28 Dose: Not Given Documented by: Radha~Non- Formulary Patient's Own Med 1 ea PO UD PRN PRN Reason: SNACKS Stop: 02/18/22 21:23 Last Admin: 01/20/22 12:27 Dose: 2 tab Documented by: Polyethylene Glycol (Polyethylene (Miralax) 17 Gm Pack) 17 gm PO DAILY PRN PRN Reason: Constipation Stop: 02/18/22 13:16 Sertraline HCl (Sertraline Hcl 50 Mg Tablet) 150 mg PO QAM [facility] Stop: 02/19/22 08:59 Last Admin: 01/20/22 07:55 Dose: 150 mg Documented by: Vitamin B Complex/Folic Acid (Nephrocaps) 1 cap PO QAM [facility] Stop: 02/19/22 08:59 Last Admin: 01/20/22 10:14 Dose: 1 cap Documented by: (1) HTN (hypertension) Hypertension type: unspecified Qualified Code(s): I10 - Essential (primary) hypertension
[2022-01-20 15:44] LABS: Hematocrit (blood only) 31.3 % (37-47); Hemoglobin 9.8 g/dL (12.0-16.0)
[2022-01-20] MEDS: CINACALCET HCL 30 MG TAB PO SCH (17:10)
[2022-01-20] MEDS: DOXEPIN HCL 50 MG CAPSULE PO SCH (20:38)
[2022-01-20] MEDS: amLODIPine BESYLATE 5 MG TAB PO SCH (20:39)
[2022-01-20] MEDS ORDERED: oxyCODONE HCL IR 5 MG TAB (IMMEDIATE RELEASE) PO STA (20:49)
[2022-01-20 21:24] LABS: Hematocrit (blood only) 30.2 % (37-47); Hemoglobin 9.8 g/dL (12.0-16.0)
[2022-01-20] MEDS: HYDROmorphone INJ 0.5 MG/0.5 ML SYR IV PRN (23:43)
[2022-01-21 06:15] LABS: Basophils # (auto) 0.02 K/uL (0-0.2); Basophils % (auto) 0.2 %; Eosinophils # (auto) 0.17 K/uL (0-0.5); Eosinophils % (auto) 2.1 %; Hematocrit (blood only) 30.3 % (37-47); Hemoglobin 9.9 g/dL (12.0-16.0); Immature Granulocytes # (auto) 0.02 K/uL (0.00-0.02); Immature Granulocytes % (auto) 0.2 %; Lymphocytes # (auto) 1.35 K/uL (1.2-3.4); Lymphocytes % (auto) 16.3 %; Mean Corpuscular Hemoglobin 31.9 pg (25-34); Mean Corpuscular Hgb Conc 32.7 g/dL (32-36); Mean Corpuscular Volume 97.7 fL (80-100); Mean Platelet Volume 8.8 fL (7.4-10.4); Monocytes # (auto) 0.53 K/uL (0.11-0.59); Monocytes % (auto) 6.4 %; Neutrophils # (auto) 6.19 K/uL (1.4-6.5); Neutrophils % (auto) 74.8 %; Platelet Count 153 K/uL (130-400); RDW Coefficient of Variation 14.1 % (11.5-14.5); RDW Standard Deviation 50.3 fL (36.4-46.3); White Blood Count 8.28 K/uL (4.8-10.8)
[2022-01-21 06:38] LABS: Anion Gap 15 (3-11); BUN Creatinine Ratio 8.4 (10-20); Blood Urea Nitrogen 69 mg/dl (6-23); Calcium 8.5 mg/dl (8.5-10.1); Carbon Dioxide 26 mmol/L (21-32); Chloride 96 mmol/L (98-107); Est GFR (African American) 6.6 ml/min; Est GFR (Non-African American) 5.7 ml/min; Glucose 160 mg/dl (70-99(Fasting)); Potassium 4.2 mmol/L (3.5-5.1); Sodium 137 mmol/L (136-145)
[2022-01-21] MEDS: HYDROmorphone INJ 0.5 MG/0.5 ML SYR IV PRN ×3 (08:33→21:04)
[2022-01-21] MEDS: carvediloL 3.125 MG TAB PO SCH ×2 (08:34→20:53)
[2022-01-21] MEDS: PANTOprazole 40 MG in SYRINGE 0 ML IV SCH ×2 (08:34→20:51)
[2022-01-21] MEDS: NEPHROCAPS PO SCH (08:34)
[2022-01-21] MEDS: CALCIUM ACETATE 667 MG CAP/TAB PO SCH ×3 (08:34→17:43)
[2022-01-21] MEDS: SERTRALINE HCL 50 MG TABLET PO SCH (08:35)
[2022-01-21] MEDS: AURYXIA PO SCH ×3 (08:35→17:42)
[2022-01-21] MEDS: FLUTICASONE/VILANTEROL 200/25MCG 14 PUFFS/INHALER INH SCH (08:35)
[2022-01-21] MEDS: GABAPENTIN 400 MG CAP PO SCH ×2 (08:36→17:50)
[2022-01-21] MEDS: INSULIN ASPART PER UNIT SC SCH ×4 (09:22→21:03)
[2022-01-21] MEDS: DICLOFENAC SOD 1% GEL 100 GM TUBE EXT SCH ×2 (12:22→20:53)
--- NOTE | 2022-01-21 13:41 | Electrocardiogram Report ---
Test Reason : Blood Pressure : / mmHG Vent. Rate : 091 BPM Atrial Rate : 091 BPM P-R Int : 158 ms QRS Dur : 100 ms QT Int : 426 ms P-R-T Axes : 044 004 031 degrees QTc Int : 523 ms Normal sinus rhythm Prolonged QT Abnormal ECG When compared with ECG of 19-JAN-2022 09:01, QT has shortened Confirmed by Balbir Meek ([id number]) on 01/21/2022 1:41:11 PM Referred By: Provider Outside Confirmed By:Balbir Meek
--- NOTE | 2022-01-21 13:59 | Hospitalist Progress Note ---
Date of Service January 21, 2022 Assessment & Plan (1) Rectal bleeding: (2) BRBPR (bright red blood per rectum): (3) Anemia in ESRD (end-stage renal disease): (4) ESRD (end stage renal disease) on dialysis: (5) HTN (hypertension): (6) Prolonged QT interval: Plan: This is a 36-year-old female who has significant PMH of ESRD on HD with hx of renal transplant followed by Dr. Nieves, HTN, depression with anxiety, chronic anemia, chronically elevated troponin, IBS, former tobacco abuse who presents to [facility] ED secondary to BRBPR x 1 day. Rectal bleeding Bright red blood per rectum Anemia in setting of end-stage renal disease No more bleeding since admission H&H remained stable patient denies any acute distress Per GI KUB, C. difficile and stool studies and GI bleeding scan ordered-negative C. difficile toxin but positive C. difficile gene Appreciate GI input and recommendation of doing outpatient colonoscopy Remains stable otherwise Hemoglobin remained stable and no more rectal bleed A little drowsy today and complain pain in the left shoulder from prior injury Will apply local diclofenac We will get PT and OT evaluation before discharge End-stage renal disease on hemodialysis On hemodialysis Saturday Received partial treatment today Consult nephrology for dialysis needs-appreciate nephrology input and recommendation continue phosphate binders Next dialysis tomorrow T2DM diet controlled aqc 5.9 on 08/2021 [id number] in ED will monitor accuchecks and place on novolog correction factor coverage a1c in a.m.-7.1 Prolonged QTC pt with prior hx of this pt is on zoloft but no other qtc prolonging meds repeat ecg in a.m. avoid qtc prolonging meds HTN bp stable on amlodipine, coreg hx of tobacco abuse pt has since quit smoking since I last saw her I congratulated her and she will complete her course of chantix Fall and struck head occurred 4 days ago obtain facial and head CT DVT ppx: SCD/TEDS due to rectal bleeding Dispo: tele FULL CODE PCP: Luis Carlos Admission and Anticipated Discharge Date Admission Date: January 19, 2022 Subjective 01/20/2022 The patient was seen and examined in medical telemetry unit She was admitted yesterday with acute rectal bleeding Remains drowsy today and denies any more bleeding Denies any other significant symptoms 01/21/2022 The patient was seen and examined in the medical telemetry unit She remains stable but complains to have pain in the left shoulder She did not have any more blood in the stool Review of Systems Review of Systems: All systems reviewed and are unremarkable except as noted below Physical Exam Physical Exam: Lying in bed with little drowsy without any acute distress Constitutional: well developed, well nourished, + ill appearing and + obese Eyes: PERRL, conjunctivae normal, anicteric sclerae ENMT: external ear and nose normal, oropharynx normal Neck: trachea midline, no thyromegaly Respiratory: no respiratory distress Auscultation: + diminished lung sounds and + crackles (Minimal crackles at the bases) Cardiovascular: Rate/Rhythm: regular rate, regular rhythm and + tachycardic Heart Sounds: normal S1 and normal S2; no murmur Extremities: + edema (Trace edema bilaterally) Gastrointestinal (Abdomen): Inspection/Auscultation: normal bowel sounds; abdomen not distended Percussion/Palpation: abdomen soft; abdomen nontender Musculoskeletal: No acute arthritis in any joint Neurologic: Alert, 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. Remains drowsy and sleepy Psychiatric: A+Ox3, euthymic affect Lymphatic: no cervical or axillary lymphadenopathy Results & Data Results & Data ([facility]) Vital Signs (Past 12 Hours) Vital Signs Temp Pulse Pulse Resp BP Pulse Ox 01/21/22 08:00 107 H 01/21/22 06:27 36.7 C 100 H 18 126/86 96 01/21/22 02:33 36.7 C 100 H 18 142/91 H 96 Laboratory Results Short CBC 01/20/22 01/20/22 01/21/22 Range/Units 15:21 21:06 05:53 WBC 8.28 (4.8-10.8) K/uL Hgb 9.8 L 9.8 L 9.9 L (12.0-16.0) g/dL Hct 31.3 L 30.2 L 30.3 L (37-47) % Plt Count 153 (130-400) K/uL BMP 01/21/22 05:53 Sodium 137 Potassium 4.2 Chloride 96 L Carbon Dioxide 26 BUN 69 H D Creatinine 8.19 H* D Glucose 160 H Calcium 8.5 Medications Administered Current Inpatient Medications Acetaminophen (Acetaminophen 325 Mg Tab) 650 mg PO Q4H PRN PRN Reason: Pain or Fever Stop: 02/18/22 13:16 Albuterol (Albuterol Hfa 8 Gm Inhaler) 2 puffs INH QID PRN PRN Reason: Shortness Of Breath Stop: 02/18/22 13:16 Amlodipine Besylate (Amlodipine Besylate 5 Mg Tab) 10 mg PO HS NIKKI Stop: 02/18/22 20:59 Last Admin: 01/20/22 20:39 Dose: 10 mg Documented by: Calcium Acetate (Calcium Acetate 667 Mg Cap/Tab) 2,001 mg PO TIDM NIKKI Stop: 02/18/22 16:59 Last Admin: 01/21/22 12:22 Dose: 2,001 mg Documented by: Carvedilol (Carvedilol 3.125 Mg Tab) 3.125 mg PO BID NIKKI Stop: 02/18/22 20:59 Last Admin: 01/21/22 08:34 Dose: 3.125 mg Documented by: Cinacalcet (Cinacalcet Hcl 30 Mg Tab) 60 mg PO QDD NIKKI Stop: 02/18/22 16:29 Last Admin: 01/20/22 17:10 Dose: 60 mg Documented by: Dextrose (Dextrose 50% 50 Ml Syringe) 25 - 50 ml IV UD PRN; Protocol PRN Reason: Hypoglycemia Protocol Stop: 02/18/22 13:16 Diclofenac Sodium (Diclofenac Sod 1% Gel 100 Gm Tube) 2 gm EXT TID NIKKI Stop: 02/20/22 13:59 Last Admin: 01/21/22 12:22 Dose: 2 gm Documented by: Dicyclomine HCl (Dicyclomine Hcl 10 Mg Cap) 10 mg PO QID PRN PRN Reason: abdominal pain Stop: 02/18/22 13:16 Doxepin HCl (Doxepin Hcl 50 Mg Capsule) 200 mg PO HS [facility] Stop: 02/18/22 20:59 Last Admin: 01/20/22 20:38 Dose: 200 mg Documented by: Epoetin Travis (Epoetin Travis 10,000 Units/Ml Vial) 10,000 units IV TODAY@0700 [facility] Stop: 01/22/22 18:00 Fluticasone/Vilanterol (Fluticasone/Vilanterol 200/25mcg 14 Puffs/Inhaler) 1 puffs INH DAILY NIKKI Stop: 02/19/22 08:59 Last Admin: 01/21/22 08:35 Dose: 1 puffs Documented by: Gabapentin (Gabapentin 400 Mg Cap) 400 mg PO BIDM [facility] Stop: 02/18/22 16:59 Last Admin: 01/21/22 08:36 Dose: 400 mg Documented by: Glucagon (Glucagon For Inj 1 Mg Vial) 1 mg SQ UD PRN; Protocol PRN Reason: Hypoglycemia Protocol Stop: 02/18/22 13:16 Glucose (Glucose 10 Tabs/Tube) 4 - 8 tabs PO UD PRN; Protocol PRN Reason: Hypoglycemia Protocol Stop: 02/18/22 13:16 Glucose (Glucose 40% Gel 15 Gm Tube) 15 - 30 gm PO UD PRN; Protocol PRN Reason: Hypoglycemia Protocol Stop: 02/18/22 13:16 Heparin Sodium (Porcine) (Heparin Sod (Porcine) 1000 Unit/Ml) 1,000 units IV TODAY@0700 [facility] Stop: 01/22/22 18:00 Heparin Sodium (Porcine) (Heparin Sod (Porcine) 1000 Unit/Ml) 500 units IV Q1H [facility] Stop: 01/22/22 09:01 Hydromorphone HCl (Hydromorphone Inj 0.5 Mg/0.5 Ml Syr) 0.5 mg IV Q3H PRN PRN Reason: Pain Stop: 02/03/22 23:21 Last Admin: 01/21/22 08:33 Dose: 0.5 mg Documented by: Hydroxyzine HCl (Hydroxyzine Hcl 25 Mg Tab) 25 mg PO DAILY PRN PRN Reason: Anxiety and before Dialysis Stop: 02/18/22 13:16 Last Admin: 01/19/22 22:08 Dose: 25 mg Documented by: Sodium Chloride (Nss) 250 mls @ 15 mls/hr IV .[id number] PRN PRN Reason: For Transfusion Stop: 02/18/22 12:42 Pantoprazole Sodium 40 mg/ (Syringe) 10 mls @ 5 mls/min IV BID [facility] Stop: 02/18/22 13:29 Last Admin: 01/21/22 08:34 Dose: 5 mls/min Documented by: Promethazine HCl 6.25 mg/ (Sodium Chloride) 50.25 mls @ 201 mls/hr IV Q6H PRN PRN Reason: Nausea And Vomiting Stop: 02/18/22 13:16 Sodium Chloride (Nss 1000ml) 1,000 mls @ 0 mls/hr IV .Q0M PRN PRN Reason: For Hemodialysis Use ONLY Stop: 01/22/22 12:59 Iron Sucrose 200 mg/ Syringe 10 mls @ 1 mls/min IV TODAY@0700 [facility] Stop: 01/22/22 18:00 Insulin Aspart (Insulin Aspart Per Unit) 0 units SC ACHS [facility] Stop: 02/18/22 16:29 Last Admin: 01/21/22 12:22 Dose: 3 units Documented by: Lorazepam (Lorazepam 0.5 Mg Tab) 0.5 mg PO DAILY PRN PRN Reason: anxiety and before dialysis Stop: 02/18/22 13:16 Last Admin: 01/19/22 22:08 Dose: 0.5 mg Documented by: Miscellaneous (Carbohydrates For Hypoglycemia ) 15 - 30 gm PO UD PRN PRN Reason: Hypoglycemia Protocol Stop: 02/18/22 13:16 Miscellaneous (Varenicline 0.5 Mg Tablet~Order Awaiting Action) 1 ea N/A QS [facility] Stop: 02/18/22 15:59 Last Admin: 01/21/22 08:36 Dose: Not Given Documented by: Radha~Non- Formulary Patient's Own Med 2 ea PO TIDM [facility] Stop: 02/19/22 00:00 Last Admin: 01/21/22 12:22 Dose: 2 tab Documented by: Radha~Non- Formulary Patient's Own Med 1 ea PO UD PRN PRN Reason: SNACKS Stop: 02/18/22 21:23 Polyethylene Glycol (Polyethylene (Miralax) 17 Gm Pack) 17 gm PO DAILY PRN PRN Reason: Constipation Stop: 02/18/22 13:16 Sertraline HCl (Sertraline Hcl 50 Mg Tablet) 150 mg PO QAM [facility] Stop: 02/19/22 08:59 Last Admin: 01/21/22 08:35 Dose: 150 mg Documented by: Vitamin B Complex/Folic Acid (Nephrocaps) 1 cap PO QAM [facility] Stop: 02/19/22 08:59 Last Admin: 01/21/22 08:34 Dose: 1 cap Documented by: (1) HTN (hypertension) Hypertension type: unspecified Qualified Code(s): I10 - Essential (primary) hypertension
--- NOTE | 2022-01-21 14:43 | Electrocardiogram Report ---
Test Reason : Blood Pressure : / mmHG Vent. Rate : 095 BPM Atrial Rate : 095 BPM P-R Int : 172 ms QRS Dur : 100 ms QT Int : 414 ms P-R-T Axes : 037 -07 030 degrees QTc Int : 520 ms Normal sinus rhythm Prolonged QT Abnormal ECG When compared with ECG of 20-JAN-2022 06:26, No significant change was found Confirmed by Balbir Meek ([id number]) on 01/21/2022 2:42:48 PM Referred By: Provider Outside Confirmed By:Balbir Meek
[2022-01-21] MEDS: CINACALCET HCL 30 MG TAB PO SCH (17:43)
[2022-01-21] MEDS: DOXEPIN HCL 50 MG CAPSULE PO SCH (20:51)
[2022-01-21] MEDS: amLODIPine BESYLATE 5 MG TAB PO SCH (20:53)
[2022-01-22] MEDS: HYDROmorphone INJ 0.5 MG/0.5 ML SYR IV PRN ×4 (03:34→19:50)
[2022-01-22] MEDS ORDERED: EPOETIN ALFA 10,000 UNITS/ML VIAL IV SCH (07:00)
[2022-01-22] MEDS ORDERED: HEPARIN SOD (PORCINE) 1000 UNIT/ML IV SCH (07:00)
[2022-01-22] MEDS ORDERED: IRON SUCROSE 200 MG in SYRINGE 0 ML IV SCH (07:00)
[2022-01-22] MEDS ORDERED: SODIUM CHLORIDE 0.9% 1000ML 1,000 ML IV PRN (07:00)
[2022-01-22 07:02] LABS: Basophils # (auto) 0.01 K/uL (0-0.2); Basophils % (auto) 0.1 %; Eosinophils # (auto) 0.16 K/uL (0-0.5); Eosinophils % (auto) 1.8 %; Hematocrit (blood only) 28.9 % (37-47); Hemoglobin 9.7 g/dL (12.0-16.0); Immature Granulocytes # (auto) 0.03 K/uL (0.00-0.02); Immature Granulocytes % (auto) 0.3 %; Lymphocytes # (auto) 1.25 K/uL (1.2-3.4); Mean Corpuscular Hemoglobin 32.1 pg (25-34); Mean Corpuscular Hgb Conc 33.6 g/dL (32-36); Mean Corpuscular Volume 95.7 fL (80-100); Mean Platelet Volume 9.1 fL (7.4-10.4); Monocytes % (auto) 4.5 %; Neutrophils # (auto) 7.07 K/uL (1.4-6.5); Neutrophils % (auto) 79.3 %; Platelet Count 146 K/uL (130-400); RDW Coefficient of Variation 13.9 % (11.5-14.5); RDW Standard Deviation 48.3 fL (36.4-46.3); Red Blood Count 3.02 M/uL (4.2-5.4); White Blood Count 8.92 K/uL (4.8-10.8)
[2022-01-22] MEDS: INSULIN ASPART PER UNIT SC SCH ×4 (08:48→20:32)
[2022-01-22] MEDS: PANTOprazole 40 MG in SYRINGE 0 ML IV SCH ×2 (08:49→20:20)
[2022-01-22] MEDS: NEPHROCAPS PO SCH (08:55)
[2022-01-22] MEDS: carvediloL 3.125 MG TAB PO SCH ×2 (08:55→20:18)
[2022-01-22] MEDS: SERTRALINE HCL 50 MG TABLET PO SCH (08:56)
[2022-01-22] MEDS: CALCIUM ACETATE 667 MG CAP/TAB PO SCH ×3 (08:56→20:07)
[2022-01-22] MEDS: DICLOFENAC SOD 1% GEL 100 GM TUBE EXT SCH ×3 (08:56→20:18)
[2022-01-22] MEDS: GABAPENTIN 400 MG CAP PO SCH ×2 (08:57→20:09)
[2022-01-22] MEDS: FLUTICASONE/VILANTEROL 200/25MCG 14 PUFFS/INHALER INH SCH (08:57)
[2022-01-22] MEDS: AURYXIA PO PRN (08:58)
[2022-01-22] MEDS: AURYXIA PO SCH ×3 (09:00→20:09)
--- NOTE | 2022-01-22 14:26 | Hospitalist Progress Note ---
Date of Service January 22, 2022 Assessment & Plan (1) Rectal bleeding: (2) BRBPR (bright red blood per rectum): (3) Anemia in ESRD (end-stage renal disease): (4) ESRD (end stage renal disease) on dialysis: (5) HTN (hypertension): (6) Prolonged QT interval: Plan: This is a 36-year-old female who has significant PMH of ESRD on HD with hx of renal transplant followed by Dr. Nieves, HTN, depression with anxiety, chronic anemia, chronically elevated troponin, IBS, former tobacco abuse who presents to [facility] ED secondary to BRBPR x 1 day. Rectal bleeding Bright red blood per rectum Anemia in setting of end-stage renal disease No more bleeding since admission H&H remained stable patient denies any acute distress Per GI KUB, C. difficile and stool studies and GI bleeding scan ordered-negative C. difficile toxin but positive C. difficile gene Appreciate GI input and recommendation of doing outpatient colonoscopy Remains stable otherwise Hemoglobin remained stable and no more rectal bleed A little drowsy today and complain pain in the left shoulder from prior injury Will apply local diclofenac We will get PT and OT evaluation before discharge Remains stable without any bleeding per rectum Remain generally weak and likely to be discharged tomorrow End-stage renal disease on hemodialysis On hemodialysis Saturday Received partial treatment today Consult nephrology for dialysis needs-appreciate nephrology input and recommendation continue phosphate binders Will have dialysis today T2DM diet controlled aqc 5.9 on 08/2021 [id number] in ED will monitor accuchecks and place on novolog correction factor coverage a1c in a.m.-7.1 Prolonged QTC pt with prior hx of this pt is on zoloft but no other qtc prolonging meds repeat ecg in a.m. avoid qtc prolonging meds HTN bp stable on amlodipine, coreg hx of tobacco abuse pt has since quit smoking since I last saw her I congratulated her and she will complete her course of chantix Fall and struck head occurred 4 days ago obtain facial and head CT DVT ppx: SCD/TEDS due to rectal bleeding Dispo: tele FULL CODE PCP: Luis Carlos Admission and Anticipated Discharge Date Admission Date: January 19, 2022 Subjective 01/20/2022 The patient was seen and examined in medical telemetry unit She was admitted yesterday with acute rectal bleeding Remains drowsy today and denies any more bleeding Denies any other significant symptoms 01/21/2022 The patient was seen and examined in the medical telemetry unit She remains stable but complains to have pain in the left shoulder She did not have any more blood in the stool 01/22/2022 Patient was seen and examined in medical telemetry unit She has been feeling better and there is no more blood in the stool Her pain in the left shoulder seems to be improving She will have dialysis today Review of Systems Review of Systems: All systems reviewed and are unremarkable except as noted below Physical Exam Physical Exam: Lying in bed with little drowsy without any acute distress Constitutional: well developed, well nourished, + ill appearing and + obese Eyes: PERRL, conjunctivae normal, anicteric sclerae ENMT: external ear and nose normal, oropharynx normal Neck: trachea midline, no thyromegaly Respiratory: no respiratory distress Auscultation: + diminished lung sounds and + crackles (Minimal crackles at the bases) Cardiovascular: Rate/Rhythm: regular rate, regular rhythm and + tachycardic Heart Sounds: normal S1 and normal S2; no murmur Extremities: + edema (Trace edema bilaterally) Gastrointestinal (Abdomen): Inspection/Auscultation: normal bowel sounds; a bdomen not distended Percussion/Palpation: abdomen soft; abdomen nontender Musculoskeletal: Shoulder: + joint line tenderness (Tenderness in the anterior aspect of left shoulder) No acute arthritis in any joint. Neurologic: normal touch/pain/proprioception and moves all extremities Psychiatric: A+Ox3, euthymic affect Lymphatic: no cervical or axillary lymphadenopathy Results & Data Results & Data ([facility]) Vital Signs (Past 12 Hours) Vital Signs Temp Pulse Pulse Resp BP BP Pulse Ox 01/22/22 12:42 36.7 C 93 H 18 143/89 H 96 01/22/22 08:31 36.6 C 97 H 18 137/86 98 01/22/22 08:00 101 H 01/22/22 06:18 98 H 179/90 H 01/22/22 03:34 36.7 C 101 H 18 152/96 H 95 Laboratory Results Short CBC 01/22/22 Range/Units 06:38 WBC 8.92 (4.8-10.8) K/uL Hgb 9.7 L (12.0-16.0) g/dL Hct 28.9 L (37-47) % Plt Count 146 (130-400) K/uL Medications Administered Current Inpatient Medications Acetaminophen (Acetaminophen 325 Mg Tab) 650 mg PO Q4H PRN PRN Reason: Pain or Fever Stop: 02/18/22 13:16 Albuterol (Albuterol Hfa 8 Gm Inhaler) 2 puffs INH QID PRN PRN Reason: Shortness Of Breath Stop: 02/18/22 13:16 Amlodipine Besylate (Amlodipine Besylate 5 Mg Tab) 10 mg PO HS NIKKI Stop: 02/18/22 20:59 Last Admin: 01/21/22 20:53 Dose: 10 mg Documented by: Calcium Acetate (Calcium Acetate 667 Mg Cap/Tab) 2,001 mg PO TIDM NIKKI Stop: 02/18/22 16:59 Last Admin: 01/22/22 12:44 Dose: 2,001 mg Documented by: Carvedilol (Carvedilol 3.125 Mg Tab) 3.125 mg PO BID NIKKI Stop: 02/18/22 20:59 Last Admin: 01/22/22 08:55 Dose: 3.125 mg Documented by: Cinacalcet (Cinacalcet Hcl 30 Mg Tab) 60 mg PO QDD NIKKI Stop: 02/18/22 16:29 Last Admin: 01/21/22 17:43 Dose: 60 mg Documented by: Dextrose (Dextrose 50% 50 Ml Syringe) 25 - 50 ml IV UD PRN; Protocol PRN Reason: Hypoglycemia Protocol Stop: 02/18/22 13:16 Diclofenac Sodium (Diclofenac Sod 1% Gel 100 Gm Tube) 2 gm EXT TID NIKKI Stop: 02/20/22 13:59 Last Admin: 01/22/22 08:56 Dose: Not Given Documented by: Dicyclomine HCl (Dicyclomine Hcl 10 Mg Cap) 10 mg PO QID PRN PRN Reason: abdominal pain Stop: 02/18/22 13:16 Doxepin HCl (Doxepin Hcl 50 Mg Capsule) 200 mg PO HS NIKKI Stop: 02/18/22 20:59 Last Admin: 01/21/22 20:51 Dose: 200 mg Documented by: Epoetin Travis (Epoetin Travis 10,000 Units/Ml Vial) 10,000 units IV TODAY@0700 [facility] Stop: 01/22/22 18:00 Fluticasone/Vilanterol (Fluticasone/Vilanterol 200/25mcg 14 Puffs/Inhaler) 1 puffs INH DAILY [facility] Stop: 02/19/22 08:59 Last Admin: 01/22/22 08:57 Dose: 1 puffs Documented by: Gabapentin (Gabapentin 400 Mg Cap) 400 mg PO BIDM [facility] Stop: 02/18/22 16:59 Last Admin: 01/22/22 08:57 Dose: 400 mg Documented by: Glucagon (Glucagon For Inj 1 Mg Vial) 1 mg SQ UD PRN; Protocol PRN Reason: Hypoglycemia Protocol Stop: 02/18/22 13:16 Glucose (Glucose 10 Tabs/Tube) 4 - 8 tabs PO UD PRN; Protocol PRN Reason: Hypoglycemia Protocol Stop: 02/18/22 13:16 Glucose (Glucose 40% Gel 15 Gm Tube) 15 - 30 gm PO UD PRN; Protocol PRN Reason: Hypoglycemia Protocol Stop: 02/18/22 13:16 Heparin Sodium (Porcine) (Heparin Sod (Porcine) 1000 Unit/Ml) 1,000 units IV TODAY@0700 [facility] Stop: 01/22/22 18:00 Hydromorphone HCl (Hydromorphone Inj 0.5 Mg/0.5 Ml Syr) 0.5 mg IV Q3H PRN PRN Reason: Pain Stop: 02/03/22 23:21 Last Admin: 01/22/22 12:49 Dose: 0.5 mg Documented by: Hydroxyzine HCl (Hydroxyzine Hcl 25 Mg Tab) 25 mg PO DAILY PRN PRN Reason: Anxiety and before Dialysis Stop: 02/18/22 13:16 Last Admin: 01/19/22 22:08 Dose: 25 mg Documented by: Sodium Chloride (Nss) 250 mls @ 15 mls/hr IV .[id number] PRN PRN Reason: For Transfusion Stop: 02/18/22 12:42 Pantoprazole Sodium 40 mg/ (Syringe) 10 mls @ 5 mls/min IV BID [facility] Stop: 02/18/22 13:29 Last Admin: 01/22/22 08:49 Dose: 5 mls/min Documented by: Promethazine HCl 6.25 mg/ (Sodium Chloride) 50.25 mls @ 201 mls/hr IV Q6H PRN PRN Reason: Nausea And Vomiting Stop: 02/18/22 13:16 Iron Sucrose 200 mg/ Syringe 10 mls @ 1 mls/min IV TODAY@0700 [facility] Stop: 01/22/22 18:00 Insulin Aspart (Insulin Aspart Per Unit) 0 units SC ACHS [facility] Stop: 02/18/22 16:29 Last Admin: 01/22/22 12:49 Dose: 1 units Documented by: Lorazepam (Lorazepam 0.5 Mg Tab) 0.5 mg PO DAILY PRN PRN Reason: anxiety and before dialysis Stop: 02/18/22 13:16 Last Admin: 01/19/22 22:08 Dose: 0.5 mg Documented by: Miscellaneous (Carbohydrates For Hypoglycemia ) 15 - 30 gm PO UD PRN PRN Reason: Hypoglycemia Protocol Stop: 02/18/22 13:16 Miscellaneous (Varenicline 0.5 Mg Tablet~Order Awaiting Action) 1 ea N/A QS [facility] Stop: 02/18/22 15:59 Last Admin: 01/22/22 08:57 Dose: Not Given Documented by: Radha~Non- Formulary Patient's Own Med 2 ea PO TIDM [facility] Stop: 02/19/22 00:00 Last Admin: 01/22/22 12:44 Dose: 2 tab Documented by: Radha~Non- Formulary Patient's Own Med 1 ea PO UD PRN PRN Reason: SNACKS Stop: 02/18/22 21:23 Polyethylene Glycol (Polyethylene (Miralax) 17 Gm Pack) 17 gm PO DAILY PRN PRN Reason: Constipation Stop: 02/18/22 13:16 Sertraline HCl (Sertraline Hcl 50 Mg Tablet) 150 mg PO QAM [facility] Stop: 02/19/22 08:59 Last Admin: 01/22/22 08:56 Dose: 150 mg Documented by: Vitamin B Complex/Folic Acid (Nephrocaps) 1 cap PO QAM [facility] Stop: 02/19/22 08:59 Last Admin: 01/22/22 08:55 Dose: 1 cap Documented by: (1) HTN (hypertension) Hypertension type: unspecified Qualified Code(s): I10 - Essential (primary) hypertension
[2022-01-22] MEDS: LORazepam 0.5 MG TAB PO PRN (14:50)
[2022-01-22] MEDS: hydrOXYzine HCl 25 MG TAB PO PRN (14:50)
--- NOTE | 2022-01-22 16:50 | Dialysis Progress Note ---
Date of Service January 22, 2022 Assessment & Plan Admission and Anticipated Discharge Date Admission Date: January 19, 2022 Subjective S----Seen in dialysis. BP is high. AVF fine. tolerating well. Physical Exam Constitutional: well developed, well nourished and cooperative; no acute distress Eyes: EOM intact bilaterally ENMT: Ears: no external ear abnormality Nose: no external nose abnormality Mouth: + dry oral mucous membranes Neck: no nuchal rigidity Respiratory: normal respiratory effort Auscultation: + diminished lung sounds Cardiovascular: Rate/Rhythm: regular rhythm and + tachycardic Extremities: + AV fistula; no edema Gastrointestinal (Abdomen): Inspection/Auscultation: normal bowel sounds Percussion/Palpation: abdomen soft; abdomen nontender Musculoskeletal: Extremities: strength 5/5 throughout Skin: no rashes, warm and dry Neurologic: sandy, fluent speech, no tremor Psychiatric: Orientation: oriented x 3 A/p ESRD---Take 3.3 kilo off and doing 3.5 hrs on 2 k bath. Giving heparin. Hgb is stable. Will give EMILY and venofer. Results & Data ([facility]) Vital Signs (Past 12 Hours) Vital Signs Temp Pulse Pulse Pulse Pulse Resp BP 01/22/22 16:40 95 H 192/94 H 01/22/22 16:20 97 H 162/117 H 01/22/22 16:00 85 169/112 H 01/22/22 15:40 90 174/101 H 01/22/22 15:20 91 H 164/88 H 01/22/22 15:10 37.0 C 96 H 91 H 01/22/22 12:42 36.7 C 93 H 18 01/22/22 08:31 36.6 C 97 H 18 01/22/22 08:00 101 H 01/22/22 06:18 98 H BP BP Pulse Ox 01/22/22 16:40 01/22/22 16:20 01/22/22 16:00 01/22/22 15:40 01/22/22 15:20 01/22/22 15:10 01/22/22 12:42 143/89 H 96 01/22/22 08:31 137/86 98 01/22/22 08:00 01/22/22 06:18 179/90 H
[2022-01-22] MEDS: HEPARIN SOD (PORCINE) 1000 UNIT/ML IV SCH (17:45)
[2022-01-22] MEDS: CINACALCET HCL 30 MG TAB PO SCH (20:07)
[2022-01-22] MEDS: amLODIPine BESYLATE 5 MG TAB PO SCH (20:16)
[2022-01-22] MEDS: DOXEPIN HCL 50 MG CAPSULE PO SCH (20:18)
[2022-01-23] MEDS: HYDROmorphone INJ 0.5 MG/0.5 ML SYR IV PRN ×4 (02:19→14:22)
[2022-01-23] MEDS: PANTOprazole 40 MG in SYRINGE 0 ML IV SCH (09:13)
[2022-01-23] MEDS: GABAPENTIN 400 MG CAP PO SCH ×2 (09:13→17:41)
[2022-01-23] MEDS: carvediloL 3.125 MG TAB PO SCH (09:13)
[2022-01-23] MEDS: CALCIUM ACETATE 667 MG CAP/TAB PO SCH ×3 (09:13→17:41)
[2022-01-23] MEDS: DICLOFENAC SOD 1% GEL 100 GM TUBE EXT SCH ×2 (09:14→14:24)
[2022-01-23] MEDS: SERTRALINE HCL 50 MG TABLET PO SCH (09:14)
[2022-01-23] MEDS: FLUTICASONE/VILANTEROL 200/25MCG 14 PUFFS/INHALER INH SCH (09:14)
[2022-01-23] MEDS: NEPHROCAPS PO SCH (09:14)
[2022-01-23] MEDS: AURYXIA PO SCH ×3 (09:16→17:38)
--- NOTE | 2022-01-23 09:16 | Nephrology Progress Note ---
Date of Service January 23, 2022 Assessment & Plan Admission and Anticipated Discharge Date Admission Date: January 19, 2022 Subjective Subjective S----She had problem free dialysis yeserday. BP high at start of dialysis but fine at end and also good now. AVF fine. hgb seems stable without active GI bleed Physical Exam Constitutional: well developed, well nourished and cooperative; no acute distress Eyes: EOM intact bilaterally ENMT: Ears: no external ear abnormality Nose: no external nose abnormality Mouth: + dry oral mucous membranes Neck: no nuchal rigidity Respiratory: normal respiratory effort Auscultation: + diminished lung sounds Cardiovascular: Rate/Rhythm: regular rhythm and + tachycardic Extremities: + AV fistula; no edema Gastrointestinal (Abdomen): Inspection/Auscultation: normal bowel sounds Percussion/Palpation: abdomen soft; abdomen nontender Musculoskeletal: Extremities: strength 5/5 throughout Skin: no rashes, warm and dry Neurologic: sandy, fluent speech, no tremor Psychiatric: Orientation: oriented x 3 A/p ESRD--- HD tomorrow Take 3 to 3.5 kilo off and doing 3.5 hrs on 2 k bath. Giving heparin. Hgb is stable and does not seem active GI bleed . Will give EMILY procrit [id number] and venofer 50. Will also do renal panel tomorrow as we dont have for last few days Results & Data ([facility]) Vital Signs (Past 12 Hours) Vital Signs Temp Pulse Pulse Resp BP Pulse Ox 01/23/22 07:45 36.7 C 98 H 14 137/88 94 01/23/22 03:46 36.4 C L 96 H 16 141/89 H 91 01/23/22 00:08 104 H 01/22/22 22:52 36.9 C 99 H 16 138/92 93
[2022-01-23] MEDS: INSULIN ASPART PER UNIT SC SCH ×3 (09:17→17:38)
--- NOTE | 2022-01-23 14:40 | Ultrasound Report ---
US venous doppler UE LT CLINICAL HISTORY: r/o DVT PROCEDURE: Left upper extremity real-time compression venous ultrasound with Duplex and Color Doppler imaging. FINDINGS: Utilizing real-time ultrasonic imaging multiple real time high-resolution ultrasonic images of the de ep venous system were performed from the forearm through the subclavian vein including evaluation of the jugular vein. Compression real time ultrasonic imaging was performed in addition to color Dopple r imaging and duplex Doppler ultrasound with velocity spectral profile analysis. A thrombus is seen in the distal basilic vein. A left cephalic graft is noted with patent flow. No ad ditional evidence of thrombus is seen. Impression: A thrombus is seen in the distal basilic vein. A left cephalic graft is seen with patent flow. ACT 112: Negative or not required by law. Electronically signed by: Mario Holliday M.D. 01/23/2022 2:39 PM
--- NOTE | 2022-01-23 16:58 | Hospitalist Progress Note ---
Date of Service January 23, 2022 Assessment & Plan (1) Rectal bleeding: (2) BRBPR (bright red blood per rectum): (3) Anemia in ESRD (end-stage renal disease): (4) ESRD (end stage renal disease) on dialysis: (5) HTN (hypertension): (6) Prolonged QT interval: Plan: This is a 36-year-old female who has significant PMH of ESRD on HD with hx of renal transplant followed by Dr. Nieves, HTN, depression with anxiety, chronic anemia, chronically elevated troponin, IBS, former tobacco abuse who presents to [facility] ED secondary to BRBPR x 1 day. Rectal bleeding Bright red blood per rectum Anemia in setting of end-stage renal disease No more bleeding since admission H&H remained stable patient denies any acute distress Per GI KUB, C. difficile and stool studies and GI bleeding scan ordered-negative C. difficile toxin but positive C. difficile gene Appreciate GI input and recommendation of doing outpatient colonoscopy Remains stable otherwise Hemoglobin remained stable and no more rectal bleed A little drowsy today and complain pain in the left shoulder from prior injury Will apply local diclofenac We will get PT and OT evaluation before discharge Remains stable without any bleeding per rectum Remain generally weak and likely to be discharged tomorrow No more bleeding per rectum and she will be going home this afternoon Left upper extremity swelling Was advised to elevate the upper extremity Ultrasound did not show 1 clot in the distal basilic vein but not any clot in the veins She was reassured If the swelling gets worse she will have an ultrasound as an outpatient as because she had a history of clot in the left upper extremity End-stage renal disease on hemodialysis On hemodialysis Saturday Received partial treatment today Consult nephrology for dialysis needs-appreciate nephrology input and recommendation continue phosphate binders Will have dialysis today T2DM diet controlled aqc 5.9 on 08/2021 [id number] in ED will monitor accuchecks and place on novolog correction factor coverage a1c in a.m.-7.1 Prolonged QTC pt with prior hx of this pt is on zoloft but no other qtc prolonging meds repeat ecg in a.m. avoid qtc prolonging meds HTN bp stable on amlodipine, coreg hx of tobacco abuse pt has since quit smoking since I last saw her I congratulated her and she will complete her course of chantix Fall and struck head occurred 4 days ago obtain facial and head CT-Normal DVT ppx: SCD/TEDS due to rectal bleeding Dispo: tele FULL CODE PCP: Luis Carlos Admission and Anticipated Discharge Date Admission Date: January 19, 2022 Subjective 01/20/2022 The patient was seen and examined in medical telemetry unit She was admitted yesterday with acute rectal bleeding Remains drowsy today and denies any more bleeding Denies any other significant symptoms 01/21/2022 The patient was seen and examined in the medical telemetry unit She remains stable but complains to have pain in the left shoulder She did not have any more blood in the stool 01/22/2022 Patient was seen and examined in medical telemetry unit She has been feeling better and there is no more blood in the stool Her pain in the left shoulder seems to be improving She will have dialysis today 01/23/2022 The patient was seen and examined in medical telemetry unit She complains some pain in the left forearm and some swelling and tells that she has a history of DVT Denies any other symptoms Her pain in the left shoulder has been improving Review of Systems Review of Systems: All systems reviewed and are unremarkable except as noted below Physical Exam Physical Exam: Lying in bed with little drowsy without any acute distress Constitutional: well developed, well nourished, + ill appearing and + obese Eyes: PERRL, conjunctivae normal, anicteric sclerae ENMT: external ear and nose normal, oropharynx normal Neck: trachea midline, no thyromegaly Respiratory: no respiratory distress Auscultation: + diminished lung sounds and + crackles (Minimal crackles at the bases) Cardiovascular: Rate/Rhythm: regular rate, regular rhythm and + tachycardic Heart Sounds: normal S1 and normal S2; no murmur Extremities: + edema (Trace edema bilaterally) Gastrointestinal (Abdomen): Inspection/Auscultation: normal bowel sounds; abdomen not distended Percussion/Palpation: abdomen soft; abdomen nontender Musculoskeletal: Shoulder: + joint line tenderness (Tenderness the anterior aspect of left shoulder with minimal swelling LUE) Neurologic: normal touch/pain/proprioception and moves all extremities Psychiatric: A+Ox3, euthymic affect Lymphatic: no cervical or axillary lymphadenopathy Results & Data Results & Data ([facility]) Vital Signs (Past 12 Hours) Vital Signs Temp Pulse Pulse Resp BP Pulse Ox 01/23/22 16:00 93 H 01/23/22 15:36 37.3 C 94 H 18 131/84 95 01/23/22 11:08 36.8 C 98 H 20 127/85 95 01/23/22 07:45 36.7 C 98 H 14 137/88 94 01/23/22 07:30 97 H Medications Administered Current Inpatient Medications Acetaminophen (Acetaminophen 325 Mg Tab) 650 mg PO Q4H PRN PRN Reason: Pain or Fever Stop: 02/18/22 13:16 Albuterol (Albuterol Hfa 8 Gm Inhaler) 2 puffs INH QID PRN PRN Reason: Shortness Of Breath Stop: 02/18/22 13:16 Amlodipine Besylate (Amlodipine Besylate 5 Mg Tab) 10 mg PO HS NIKKI Stop: 02/18/22 20:59 Last Admin: 01/22/22 20:16 Dose: 10 mg Documented by: Calcium Acetate (Calcium Acetate 667 Mg Cap/Tab) 2,001 mg PO TIDM NIKKI Stop: 02/18/22 16:59 Last Admin: 01/23/22 14:23 Dose: 2,001 mg Documented by: Carvedilol (Carvedilol 3.125 Mg Tab) 3.125 mg PO BID NIKKI Stop: 02/18/22 20:59 Last Admin: 01/23/22 09:13 Dose: 3.125 mg Documented by: Cinacalcet (Cinacalcet Hcl 30 Mg Tab) 60 mg PO QDD NIKKI Stop: 02/18/22 16:29 Last Admin: 01/22/22 20:07 Dose: 60 mg Documented by: Dextrose (Dextrose 50% 50 Ml Syringe) 25 - 50 ml IV UD PRN; Protocol PRN Reason: Hypoglycemia Protocol Stop: 02/18/22 13:16 Diclofenac Sodium (Diclofenac Sod 1% Gel 100 Gm Tube) 2 gm EXT TID NIKKI Stop: 02/20/22 13:59 Last Admin: 01/23/22 14:24 Dose: Not Given Documented by: Dicyclomine HCl (Dicyclomine Hcl 10 Mg Cap) 10 mg PO QID PRN PRN Reason: abdominal pain Stop: 02/18/22 13:16 Doxepin HCl (Doxepin Hcl 50 Mg Capsule) 200 mg PO HS NIKKI Stop: 02/18/22 20:59 Last Admin: 01/22/22 20:18 Dose: 200 mg Documented by: Epoetin Travis (Epoetin Travis 10,000 Units/Ml Vial) 10,000 units IV ONE ONE Stop: 01/24/22 07:01 Fluticasone/Vilanterol (Fluticasone/Vilanterol 200/25mcg 14 Puffs/Inhaler) 1 puffs INH DAILY NIKKI Stop: 02/19/22 08:59 Last Admin: 01/23/22 09:14 Dose: 1 puffs Documented by: Gabapentin (Gabapentin 400 Mg Cap) 400 mg PO BIDM NIKKI Stop: 02/18/22 16:59 Last Admin: 01/23/22 09:13 Dose: 400 mg Documented by: Glucagon (Glucagon For Inj 1 Mg Vial) 1 mg SQ UD PRN; Protocol PRN Reason: Hypoglycemia Protocol Stop: 02/18/22 13:16 Glucose (Glucose 10 Tabs/Tube) 4 - 8 tabs PO UD PRN; Protocol PRN Reason: Hypoglycemia Protocol Stop: 02/18/22 13:16 Glucose (Glucose 40% Gel 15 Gm Tube) 15 - 30 gm PO UD PRN; Protocol PRN Reason: Hypoglycemia Protocol Stop: 02/18/22 13:16 Heparin Sodium (Porcine) (Heparin Sod (Porcine) 1000 Unit/Ml) 1,000 units IV ONE ONE Stop: 01/24/22 07:01 Heparin Sodium (Porcine) (Heparin Sod (Porcine) 1000 Unit/Ml) 500 units IV Q1H NIKKI Stop: 01/24/22 09:01 Hydromorphone HCl (Hydromorphone Inj 0.5 Mg/0.5 Ml Syr) 0.5 mg IV Q3H PRN PRN Reason: Pain Stop: 02/03/22 23:21 Last Admin: 01/23/22 14:22 Dose: 0.5 mg Documented by: Hydroxyzine HCl (Hydroxyzine Hcl 25 Mg Tab) 25 mg PO DAILY PRN PRN Reason: Anxiety and before Dialysis Stop: 02/18/22 13:16 Last Admin: 01/22/22 14:50 Dose: 25 mg Documented by: Sodium Chloride (Nss) 250 mls @ 15 mls/hr IV .[id number] PRN PRN Reason: For Transfusion Stop: 02/18/22 12:42 Pantoprazole Sodium 40 mg/ (Syringe) 10 mls @ 5 mls/min IV BID NIKKI Stop: 02/18/22 13:29 Last Admin: 01/23/22 09:13 Dose: 5 mls/min Documented by: Promethazine HCl 6.25 mg/ (Sodium Chloride) 50.25 mls @ 201 mls/hr IV Q6H PRN PRN Reason: Nausea And Vomiting Stop: 02/18/22 13:16 Sodium Chloride (Nss 1000ml) 1,000 mls @ 0 mls/hr IV .Q0M PRN PRN Reason: For Hemodialysis Use ONLY Stop: 01/24/22 12:59 Iron Sucrose 50 mg/ Syringe 2.5 mls @ 1 mls/min IV ONE ONE Stop: 01/24/22 07:02 Insulin Aspart (Insulin Aspart Per Unit) 0 units SC ACHS [facility] Stop: 02/18/22 16:29 Last Admin: 01/23/22 14:22 Dose: 1 units Documented by: Lorazepam (Lorazepam 0.5 Mg Tab) 0.5 mg PO DAILY PRN PRN Reason: anxiety and before dialysis Stop: 02/18/22 13:16 Last Admin: 01/22/22 14:50 Dose: 0.5 mg Documented by: Miscellaneous (Carbohydrates For Hypoglycemia ) 15 - 30 gm PO UD PRN PRN Reason: Hypoglycemia Protocol Stop: 02/18/22 13:16 Miscellaneous (Varenicline 0.5 Mg Tablet~Order Awaiting Action) 1 ea N/A QS [facility] Stop: 02/18/22 15:59 Last Admin: 01/23/22 09:13 Dose: Not Given Documented by: Radha~Non- Formulary Patient's Own Med 2 ea PO TIDM NIKKI Stop: 02/19/22 00:00 Last Admin: 01/23/22 14:23 Dose: 1 tab Documented by: Radha~Non- Formulary Patient's Own Med 1 ea PO UD PRN PRN Reason: SNACKS Stop: 02/18/22 21:23 Polyethylene Glycol (Polyethylene (Miralax) 17 Gm Pack) 17 gm PO DAILY PRN PRN Reason: Constipation Stop: 02/18/22 13:16 Sertraline HCl (Sertraline Hcl 50 Mg Tablet) 150 mg PO QAM NIKKI Stop: 02/19/22 08:59 Last Admin: 01/23/22 09:14 Dose: 150 mg Documented by: Vitamin B Complex/Folic Acid (Nephrocaps) 1 cap PO QAM NIKKI Stop: 02/19/22 08:59 Last Admin: 01/23/22 09:14 Dose: 1 cap Documented by: (1) HTN (hypertension) Hypertension type: unspecified Qualified Code(s): I10 - Essential (primary) hypertension
[2022-01-23] MEDS: CINACALCET HCL 30 MG TAB PO SCH (17:41)
[2022-01-24 04:01] LABS: HBSAG NON-REACTIVE (NON-REACTIVE); Hepatitis B Surface Ab, Quant 30 mIU/mL (> OR = 10)
[2022-01-24] MEDS ORDERED: EPOETIN ALFA 10,000 UNITS/ML VIAL IV ONE (07:00)
[2022-01-24] MEDS ORDERED: HEPARIN SOD (PORCINE) 1000 UNIT/ML IV ONE (07:00)
[2022-01-24] MEDS ORDERED: HEPARIN SOD (PORCINE) 1000 UNIT/ML IV SCH (07:00)
[2022-01-24] MEDS ORDERED: IRON SUCROSE 50 MG in SYRINGE 0 ML IV ONE (07:00)
[2022-01-24] MEDS ORDERED: SODIUM CHLORIDE 0.9% 1000ML 1,000 ML IV PRN (07:00)
--- NOTE | 2022-01-24 09:05 | Discharge Summary ---
Date of Service January 24, 2022 Admission HPI Per Admitting Provider This is a 36-year-old female who has significant PMH of ESRD on HD with hx of renal transplant followed by Dr. Nieves, HTN, depression with anxiety, chronic anemia, chronically elevated troponin, IBS, former tobacco abuse who presents to [facility] ED secondary to BRBPR x 1 day. Patient states yesterday around 10:30 PM she had a large bowel movement with associated bright red blood per rectum. She noticed blood on the toilet paper as well as in the toilet bowl. She did not think much of it, but then when she woke up this morning she had an additional 3 episodes. At that point in time she was moving just midline, not stool. She is unable to quantify the amount of rectal bleeding, but did state a coated the entire toilet bowl. She has never had anything like this before. She continue to pursue going to hemodialysis. Due to the rectal bleeding they opted to not give her heparin. She was able to sustain approximately 3 hours of treatment, but then she states she, "clogged the machine." They then discussed her case with mailing machine helper who recommended she come to ED for further evaluation. In ED patient's hemoglobin was stable at 10.4; however, she was grossly heme positive with bright red blood per ED provider. Patient did have a prior colonoscopy back in 2018 which did reveal 2 polyps and diverticulosis. She denies any abdominal pain, rectal pain or pain with bowel movement, nausea, vomiting, fever, chills or sweats. She further denies any recent illness. She has actually been in good state of health since she quit smoking. She continues to use Chantix. She also has been extremely compliant with hemodialysis. She denies any lightheadedness, dizziness, chest pain, shortness of breath, URI symptoms, cough, urinary symptoms or melena. Her appetite has otherwise been stable. She denies any postprandial abdominal pain. Patient also elicits that she fell out of bed approximately 4 to 5 days ago. She states she woke up and was sitting on the side of her bed and was still very sleepy. She fell back asleep and then she fell out of bed striking her right cheek and right forehead. She does have a headache, but describes headache as her normal off and on headache. She denies any change in vision, hearing or loss of balance. She continues to have right facial pain and is requesting imaging. In ED patient remained hemodynamically stable. Again she was grossly heme positive per ED provider. Hemoglobin stable at 10.4. Admission Exam Per Admitting Provider Physical Exam: Constitutional: WD/WN, F, vitals as above, NAD, sitting up in bed, pleasant, conversing easily Head: Normocephalic, Atraumatic Eyes: PERRL, conjunctivae normal, anicteric sclerae ENMT: external ear and nose normal, oropharynx normal Neck: trachea midline, no thyromegaly normal visual inspection Respiratory: normal respiratory effort, lungs clear to auscultation, no wheeze, rales, rhonchi. Normal insp/exp effort, no accessory muscle use Cardiovascular: RRR, no murmur, no edema Vessels: no JVD or carotid bruit Chest: normal inspection of chest Abdomen: normal bowel sounds, soft, nontender, no hepatosplenomegaly Musculoskeletal: no cyanosis or clubbing, extremities motor strength 5/5 Skin: no rashes, warm and dry normal turgor Neurologic: PERRL, EOMI, accommodation nl, no face palsy, no dysarthria CN's II-XI intact bilaterally and moves all extremities Psychiatric: A+Ox3, euthymic affect : deferred Principal Diagnosis Bright red rectal bleed, stopped and no more bleeding, end-stage renal disease on hemodialysis Discharge Exam Lying in bed with little drowsy without any acute distress Constitutional well developed, well nourished, + ill appearing and + obese Eyes PERRL, conjunctivae normal, anicteric sclerae ENMT external ear and nose normal, oropharynx normal Neck trachea midline, no thyromegaly Respiratory no respiratory distress Auscultation: + diminished lung sounds and + crackles (Minimal crackles at the bases) Cardiovascular Rate/Rhythm: regular rate, regular rhythm and + tachycardic Heart Sounds: normal S1 and normal S2; no murmur Extremities: + edema (Trace edema bilaterally) Gastrointestinal (Abdomen) Inspection/Auscultation: normal bowel sounds; abdomen not distended Percussion/Palpation: abdomen soft; abdomen nontender Musculoskeletal Shoulder: + joint line tenderness (Tenderness the anterior aspect of left shoulder with minimal swelling LUE) Neurologic normal touch/pain/proprioception and moves all extremities Psychiatric A+Ox3, euthymic affect Lymphatic no cervical or axillary lymphadenopathy Discharge Data Allergies Allergy/AdvReac Type Severity Reaction Status Date / Time cefaclor Allergy Intermediate Rash Verified 01/19/22 09:33 amoxicillin AdvReac Mild VOMITING Verified 01/19/22 09:33 clavulanic acid AdvReac Mild VOMITING Verified 01/19/22 09:33 Consultations 01/19/22 11:20 ED Decision to Admit Stat 01/19/22 11:26 Consult Gastroenterology Routine Consult Nephrology Routine Ordered Studies 01/19/22 12:32 CT facial bones wo con Stat CT head/brain wo con Stat 01/23/22 10:10 US venous doppler UE LT Urgent Hospital Course (1) Rectal bleeding: (2) BRBPR (bright red blood per rectum): (3) Anemia in ESRD (end-stage renal disease): (4) ESRD (end stage renal disease) on dialysis: (5) HTN (hypertension): (6) Prolonged QT interval: This is a 36-year-old female who has significant PMH of ESRD on HD with hx of renal transplant followed by Dr. Nieves, HTN, depression with anxiety, chronic anemia, chronically elevated troponin, IBS, former tobacco abuse who presents to [facility] ED secondary to BRBPR x 1 day. Rectal bleeding Bright red blood per rectum Anemia in setting of end-stage renal disease No more bleeding since admission H&H remained stable patient denies any acute distress Per GI KUB, C. difficile and stool studies and GI bleeding scan ordered-negative C. difficile toxin but positive C. difficile gene Appreciate GI input and recommendation of doing outpatient colonoscopy Remains stable otherwise Hemoglobin remained stable and no more rectal bleed A little drowsy today and complain pain in the left shoulder from prior injury Will apply local diclofenac We will get PT and OT evaluation before discharge Remains stable without any bleeding per rectum Remain generally weak and likely to be discharged tomorrow No more bleeding per rectum and she will be going home this afternoon Left upper extremity swelling Was advised to elevate the upper extremity Ultrasound did not show 1 clot in the distal basilic vein but not any clot in the veins She was reassured If the swelling gets worse she will have an ultrasound as an outpatient as because she had a history of clot in the left upper extremity End-stage renal disease on hemodialysis On hemodialysis Saturday Received partial treatment today Consult nephrology for dialysis needs-appreciate nephrology input and recommendation continue phosphate binders Will have dialysis today T2DM diet controlled aqc 5.9 on 08/2021 [id number] in ED will monitor accuchecks and place on novolog correction factor coverage a1c in a.m.-7.1 Prolonged QTC pt with prior hx of this pt is on zoloft but no other qtc prolonging meds repeat ecg in a.m. avoid qtc prolonging meds HTN bp stable on amlodipine, coreg hx of tobacco abuse pt has since quit smoking since I last saw her I congratulated her and she will complete her course of chantix Fall and struck head occurred 4 days ago obtain facial and head CT-Normal DVT ppx: SCD/TEDS due to rectal bleeding Dispo: tele FULL CODE PCP: Luis Carlos Total Time Total Time Spent Total Time Spent (In Minutes): 40 minutes Discharge Plan Discharge Items Patient Disposition: Home - Self-Care Reason For Visit: BRBPR,BLOODY STOOLS Discharge Diagnosis: Bright red rectal bleed, stopped and no more bleeding, end-stage renal disease on hemodialysis Condition on Discharge: Fair Activity: Resume your previous activity Non-emergency contact: Primary Care Provider Call non-emergency contact if: you have any medication questions and your symptoms worsen Follow-up/Referrals: Adolph Aldridge MD [Primary Care Provider] - (Date & Time 01/29/2022 11:20 AM Provider Adolph Aldridge MD [facility] ) Diet: Dialysis Renal Fluids: 1500ml (6 cups) Addtl Attending Provider Instructions: Please take precautions to avoid falls No change in new current medication There is increasing swelling of the left upper extremity with increasing pain please get an ultrasound to rule out any deep venous thrombosis Continue outpatient dialysis and have regular follow-up appointments with your healthcare providers Pending Studies at Discharge: No Stand-Alone Forms: My [employer], Smoking Cessation Medications and DC Order Prescriptions: New diclofenac sodium [Voltaren Arthritis Pain] 1 % Gel 2 g EXT TID Qty: 100 RF: 0 Continued calcium acetate(phosphat bind) 667 mg capsule 2,001 mg PO TIDM RF: 0 sertraline 100 mg tablet 150 mg PO QAM RF: 0 Auryxia 210 mg iron tablet 210 - 420 mg PO TIDM RF: 0 carvedilol 3.125 mg tablet 3.125 mg PO BID RF: 0 hydroxyzine HCl 25 mg tablet 25 mg PO DAILY PRN (Reason: Anxiety and before Dialysis) RF: 0 albuterol sulfate 90 mcg/actuation HFA aerosol inhaler 2 puff INHALATION QID PRN (Reason: Shortness Of Breath) RF: 0 amlodipine 10 mg Tablet 10 mg PO HS RF: 0 Renal Vitamin 0.8 mg Tablet 1 tab PO QAM RF: 0 lorazepam 0.5 mg tablet 0.5 mg PO DAILY PRN (Reason: anxiety and before dialysis) RF: 0 medroxyprogesterone [Depo-Provera] 150 mg/mL suspension 150 mg IM Q90D RF: 0 cinacalcet [Sensipar] 30 mg Tablet 60 mg PO QDD RF: 0 gabapentin [Neurontin] 400 mg capsule 400 mg PO BID RF: 0 dicyclomine 10 mg capsule 10 mg PO QID PRN (Reason: cyst) RF: 0 doxepin 100 mg capsule 200 mg PO HS RF: 0 omeprazole 20 mg capsule,delayed release(DR/EC) 20 mg PO HS RF: 0 varenicline 0.5 mg tablet 0.5 mg PO BID RF: 0 Dulera 200-5 mcg/actuation HFA aerosol inhaler 2 puff INHALATION BID RF: 0 Discharge Orders: Discharge Order (Routine); Ordered 01/23/22 Ordered By: Juan Martinez/Other Patient Handouts: Managing Type 2 Diabetes Admission Data Admit Date/Time: 01/19/22 11:26 Attending Provider: Juan Victor Admit Provider: Anthony Zendejas Primary Care Provider: Adolph Aldridge Other Providers: Mickey Roth ; Leah Nieves ; Anthony Zendejas Other Interventions: Discharge Summary Assessment (RN) Last Done: 01/23/22 17:49
== END 2022-01-23 18:20 | disposition home or self-care (01) | DRG 377 ==
LOC: ED 08:32 → 2N 11:26 → SUATTDRO 11:26 → 2N 12:42

== ENCOUNTER 2022-02-07 14:41 | Inpatient (IN) ==
--- NOTE | 2022-02-07 16:11 | XRay Report ---
SINGLE VIEW CHEST CLINICAL HISTORY: Illness. FINDINGS: An AP, portable, upright chest radiograph is compared to study dated 01/31/2022 and correlate d with chest CT dated 08/11/2020. The examination is degraded by portable technique and apical lordot ic positioning. A vascular stent projects over the thoracic inlet. The heart is enlarged and there is mild pulmonary vascular congestion. No airspace consolidation or large pleural effusion is identifie d. No pneumothorax is seen. The skeletal structures appear osteopenic. The bony thorax is grossly int act. IMPRESSION: Cardiomegaly with mild pulmonary vascular congestion. ACT 112: Negative or not required by law. Electronically signed by: North Quintero M.D. 02/07/2022 4:10 PM
--- NOTE | 2022-02-07 17:06 | Nephrology Consultation ---
Date of Consultation February 07, 2022 Assessment & Plan (1) Missed dialysis: last HD 5 days ago and now presents w/ fluid overload -urgent 2 hr HD this evening -labs pending > f/u labs this evening -plan further HD tomorrow (2) Abscess, dental: to start unasyn; will order 2 more blood cultures to be drawn before/as abtx start History of Present Illness Reason for Consultation: ESRD needing dialysis Requesting Physician: Attending Physician: History of Present Illness 36 y/o F whom I'm asked to see for dialysis needs presented to ER today after having missed HD x 2 txs, including today. She was in ER on 02/05 w/ c/o facial pain from dental abscess. Also w/ recent admission here late last month for rectal bleeding. PMH includes ESRD from FSGS on MWF HD under my care at [facility] via AVF, hx of failed renal transplant, HTN, anxiety, asthma, RLS. Also w/ diet controlled DM, prolonged QT, and recently reformed tobacco abuse, s/p AVF angioplasty on 06/15. Stated at last admission that she fell on 01/17 at home and hit R cheek/jaw. She tells me she feels swollen and short of breath; denies pain except for her L jaw where has dental abscess. states she fell out of bed this am and has been havingtrouble hearing alarm, hence missed HD txs. does continue to abstain from tobacco. no f/c; pustules d/t anxiety she states; has palpitations; no n/v. Allergies Allergy/AdvReac Type Severity Reaction Status Date / Time cefaclor Allergy Intermediate Rash Verified 02/05/22 22:20 amoxicillin AdvReac Intermediate VOMITING Verified 02/05/22 22:20 clavulanic acid AdvReac Intermediate VOMITING Verified 02/05/22 22:20 Home Medications Medication Instructions Recorded Confirmed Type ferric citrate 210 mg iron tablet 210 - 420 mg PO TIDM 10/17/19 02/05/22 History (Auryxia) carvedilol 3.125 mg tablet 3.125 mg PO BID 12/21/19 02/05/22 History hydroxyzine HCl 25 mg tablet 25 mg PO DAILY PRN 04/21/20 02/05/22 History calcium acetate(phosphat bind) 667 2,001 mg PO TIDM 06/22/20 02/05/22 History mg capsule albuterol sulfate 90 mcg/actuation 2 puff INHALATION QID PRN 08/01/20 02/05/22 History aerosol inhaler sertraline 100 mg tablet 150 mg PO QAM 08/02/20 02/05/22 History amlodipine 10 mg tablet 10 mg PO HS 08/10/20 02/05/22 History vitamin B complex-vitamin C-folic 1 tab PO QAM 08/10/20 02/05/22 History acid 0.8 mg tablet (Renal Vitamin) cinacalcet 30 mg tablet (Sensipar) 60 mg PO QDD 03/06/21 02/05/22 History lorazepam 0.5 mg tablet 0.5 mg PO DAILY PRN 03/06/21 02/05/22 History medroxyprogesterone 150 mg/mL 150 mg IM Q90D 03/06/21 02/05/22 History intramuscular suspension (Depo-Provera) gabapentin 400 mg capsule 400 mg PO BIDM 06/27/21 02/05/22 History (Neurontin) dicyclomine 10 mg capsule 10 mg PO QID PRN 01/19/22 02/05/22 History doxepin 100 mg capsule 200 mg PO HS 01/19/22 02/05/22 History mometasone-formoterol HFA 200 2 puff INHALATION BID 01/19/22 02/05/22 History mcg-5 mcg/actuation aerosol inhaler (Dulera) omeprazole 20 mg capsule,delayed 20 mg PO HS 01/19/22 02/05/22 History release varenicline 0.5 mg tablet 0.5 mg PO BID 01/19/22 02/05/22 History diclofenac sodium 1 % topical gel 2 g EXT TID #100 g 01/23/22 02/05/22 Rx (Voltaren Arthritis Pain) Patient History Medical History Anemia due to end stage renal disease Anxiety and depression Asthma "BEEN A WHILE" SINCE USING LAST RESCUE INHALER AVF (arteriovenous fistula) bilt---currently using right for dialysis CKD (chronic kidney disease) stage V requiring chronic dialysis Dialysis patient SATURDAY/SAT/SATURDAY AT [facility] DM2 (diabetes mellitus, type 2) ESRD (end stage renal disease) on dialysis Fistula right arm (currently being used) and left arm FSGS (focal segmental glomerulosclerosis) DX INITIALLY 2012 (CAUSING ESRD 2012) GERD (gastroesophageal reflux disease) History of abnormal cervical Papanicolaou smear HTN (hypertension) Peripheral neuropathy Prolonged QT interval Restless leg syndrome Surgical History H/O eye surgery LASER SURGERY LEFT H/O hernia repair ABDOMINAL WALL H/O knee surgery LEFT KNEE X 2 H/O tubal ligation H/O: X 2 History of cardiac cath 2016 NO STENTS History of cholecystectomy History of colonoscopy History of surgery (~09/09/20) perm cath replacement History of surgery left arm d/t clot in arm from AV fistula use @ [facility] History of tooth extraction three TOOTH Kidney transplant recipient 2013 AT [facility] S/P arteriovenous (AV) fistula creation right arm Family History Grandmother Hx of CABG Mother Diabetes Father Crohn's disease Grandfather (Maternal) Diabetes Uncle Diabetes Grandmother (Maternal) Family history of reaction to anesthesia difficulty waking with colonoscopy Social History (Updated 02/07/22 @ 17:43 by Leah Nieves MD, PhD) Smoking Status: Former smoker Tobacco Type: Cigarettes Cigarettes Per Day: 20; Smoking End Date: 12/24/21; Second Hand Exposure: No; Hx Alcohol Use: No Hx Substance Use: No Preferred Language: Croatian Communication Ability: Effective 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 Beliefs That Will Affect Care: None marital status: Current Living Situation: Family and Significant Other Current Living Situation Comment: Lives with fiance and kids How many Children do You have: 3 Feels Safe at Home: Yes Assistive Devices: None Review of Systems Review of Systems: All systems reviewed & are unremarkable except as noted in Subjective Physical Exam Constitutional: well developed, well nourished, + obese and cooperative; no acute distress Eyes: EOM intact bilaterally ENMT: Ears: no external ear abnormality Nose: no external nose abnormality Mouth: + dry oral mucous membranes marked facial edema; hoarse voice Neck: no nuchal rigidity Respiratory: normal respiratory effort Auscultation: + diminished lung sounds Cardiovascular: Rate/Rhythm: regular rhythm and + tachycardic Extremities: + edema (limbs and facial) and + AV fistula (BL AC) Gastrointestinal (Abdomen): Inspection/Auscultation: normal bowel sounds Percussion/Palpation: abdomen soft; abdomen nontender Musculoskeletal: Extremities: strength 5/5 throughout Skin: no rashes, warm and dry Trauma: + evidence of skin trauma (scattered scabbed pustules on face/ forearms/upper back) Neurologic: sandy, fluent speech, no tremor Psychiatric: Orientation: oriented x 3 Eye Contact: good eye contact Speech: normal rate/rhythm/volume of speech Results & Data ([facility]) Vital Signs (Past 12 Hours) Vital Signs Temp Pulse Pulse Resp BP Pulse Ox 02/07/22 16:00 104 H 16 98 02/07/22 14:52 36.6 C 111 H 16 171/106 H 95 Laboratory Results labs pending Diagnostic Findings cxr IMPRESSION: Cardiomegaly with mild pulmonary vascular congestion. ECG reviewed; not changed on my review from 01/31/22 ct abd/pelvis pending
[2022-02-07] MEDS ORDERED: AMPICILLIN/SULBACTAM SOD 3,000 MG in 0.9 % SODIUM CHLORIDE 100 ML IV ONE (17:15)
--- NOTE | 2022-02-07 17:24 | Hospitalist Progress Note ---
Date of Service February 07, 2022 Assessment & Plan (1) Missed dialysis: (2) ESRD (end stage renal disease) on dialysis: (3) Odontalgia: (4) DM2 (diabetes mellitus, type 2): Admission and Anticipated Discharge Date Admission Date: ESRD on HD MWF, non compliant to HD now presenting with fluid overload - Last HD 5 days ago. Seen by nephro- urgent 2 hr HD this evening - further management per nephro Dental caries with cellulitis- Wound Clx 01/30 with MSSA and prevotella and has been on clindamycin. CT face with no abscess- details below - Tolerated zosyn in the past. Will start on unasyn- will need OP dental evaluation - Follow blood clx CT face 1. Left lower facial infiltration consistent with cellulitis. No fluid collection identified on this unenhanced exam to suggest abscess. Definitive source not identified although this infectious process is likely odontogenic in etiology. Multiple dental caries. 2. Mild prevertebral edema, a nonspecific finding. No loculated fluid collection. CT head- no acute finding DM-2- diet controlled, not on meds. SSI prn GERD- on PPI Depression- on celexa, trazodone HTN- on norvasc, coreg Tobacco abuse- on chantix and states she has not smoked in 2 months. Continue chantix DVT ppx- sc heparin Dispo- PCU tele Full code Subjective 36 year old female with h/o ESRD s/p failed renal transplant and now back on HD MWF, HTN, DM who presented to the ED after she missed her dialysis today. States she did not hear the alarm off and that's how she missed the dialysis. States she has been having left lower tooth/ jaw pain for past two weeks, was evaluated in the ED last week and was discharged on clindamycin but says it is still painful and is asking for pain medication in the ED. states she takes tylenol at home but it does not help with the pain. Denies any fever, chills, nausea, vomiting, dysphagia, dyspnea, dysphonia. Last visit to dentist was over a year ago. She also states she feels sleepy but when I states that we will be hesitant to give her pain meds (dilaudid which she asked for) if she is sleepy like this, she woke up and remained awake throughout the rest of the encounter. Review of Systems Review of Systems: All systems reviewed & are unremarkable except as noted in Subjective Physical Exam Physical Exam: General: Sitting comfortably in bed, not in distress, on room air HEENT: EOMI, LEAH, Poor oral hygiene, dental caries Chest: Clear breath sounds bilaterally, no wheezes or crackles CVS: Regular rate and rhythm, normal heart sounds, no murmur Abdomen: Soft, non tender, not distended, normal bowel sounds Neuro: Awake, alert, oriented, conversing well, non focal Extremities: No cyanosis, clubbing or edema Skin: multiple excoriations all over Results & Data Results & Data ([facility]) Vital Signs (Past 12 Hours) Vital Signs Temp Pulse Pulse Resp BP Pulse Ox 02/07/22 16:00 104 H 16 98 02/07/22 14:52 36.6 C 111 H 16 171/106 H 95 Laboratory Results Short CBC 02/07/22 Range/Units 17:59 WBC 6.22 (4.8-10.8) K/uL Hgb 8.5 L (12.0-16.0) g/dL Hct 25.9 L (37-47) % Plt Count 128 L (130-400) K/uL BMP 02/07/22 17:59 Sodium 136 Potassium 5.0 Chloride 94 L Carbon Dioxide 23 BUN 97 H D Creatinine 14.90 H* D Glucose 132 H Calcium 9.3 Liver Function 02/07/22 Range/Units 17:59 Total Bilirubin 0.4 (0.2-1.0) mg/dl AST 23 (13-39) U/L ALT 16 (7-52) U/L Alkaline Phosphatase 58 (34-104) U/L Albumin 3.9 (3.4-5.0) gm/dl Diagnostic Findings Chest X-Ray 02/07/22 14:55 SINGLE VIEW CHEST CLINICAL HISTORY: Illness. FINDINGS: An AP, portable, upright chest radiograph is compared to study dated 01/31/2022 and correlated with chest CT dated 08/11/2020. The examination is degraded by portable technique and apical lordotic positioning. A vascular stent projects over the thoracic inlet. The heart is enlarged and there is mild pulmonary vascular congestion. No airspace consolidation or large pleural effusion is identified. No pneumothorax is seen. The skeletal structures appear osteopenic. The bony thorax is grossly intact. IMPRESSION: Cardiomegaly with mild pulmonary vascular congestion. ACT 112: Negative or not required by law. Electronically signed by: North Quintero M.D. 02/07/2022 4:[address] 02/07/22 16:[address] WITHOUT CONTRAST CLINICAL HISTORY: left lower dental infection COMPARISON STUDY: Facial bone CT January 19, 2022. TECHNIQUE: A maxillofacial CT was performed without IV contrast. Coronal and sagittal reformats were viewed. Automated exposure control was utilized for the study. A dose lowering technique was utilized adhering to the principles of ALARA. FINDINGS: Please note that the head CT will be reported separately. Left lower facial infiltration is noted suggestive of cellulitis. No fluid collection is identified on this unenhanced exam to suggest an abscess. There is no soft tissue gas. Multiple dental caries are present. This suspected infectious process is likely odontogenic in etiology although definitive source is not identified. There is mild polypoid mucosal thickening of the left maxillary sinus. Epiglottis is normal. Parotid and submandibular glands are unremarkable. Orbits are unremarkable on this unenhanced exam. Mild paravertebral edema is noted. IMPRESSION: 1. Left lower facial infiltration consistent with cellulitis. No fluid collection identified on this unenhanced exam to suggest abscess. Definitive source not identified although this infectious process is likely odontogenic in etiology. Multiple dental caries. 2. Mild prevertebral edema, a nonspecific finding. No loculated fluid collection. ACT 112: Negative or not required by law. Electronically signed by: Sebastian Mcclain M.D. 02/07/2022 5:[address] 02/07/22 16:49 CT OF THE HEAD WITHOUT CONTRAST CLINICAL HISTORY: Altered mental status. COMPARISON STUDY: Head CT January 31, 2022. CT DOSE: 1788.24 mGy.cm TECHNIQUE: Helical axial images of the head were obtained without IV contrast. Automated exposure control was utilized for the study. A dose lowering technique was utilized adhering to the principles of ALARA. FINDINGS: No acute intracranial hemorrhage, midline shift or mass effect is present. The ventricular system is unremarkable. The basal cisterns are patent. No extra-axial collections are present. There are no findings to suggest acute dural sinus thrombosis or acute territorial infarct. No significant calvarial abnormalities are present. Visualized portions of the sinuses and mastoid air cells are clear. IMPRESSION: No acute intracranial findings. ACT 112: Negative or not required by law. Electronically signed by: Sebastian Mcclain M.D. 02/07/2022 5:44 PM (1) DM2 (diabetes mellitus, type 2) Diabetes mellitus skilled nursing insulin use: without skilled nursing use Diabetes mellitus complication status: with unspecified complications Qualified Code(s): E11.8 - Type 2 diabetes mellitus with unspecified complications
[2022-02-07] MEDS ORDERED: SODIUM CHLORIDE 0.9% 1000ML 1,000 ML IV PRN (17:27)
--- NOTE | 2022-02-07 17:46 | CT Scan Report ---
CT OF THE HEAD WITHOUT CONTRAST CLINICAL HISTORY: Altered mental status. COMPARISON STUDY: Head CT January 31, 2022. CT DOSE: 1788.24 mGy.cm TECHNIQUE: Helical axial images of the head were obtained without IV contrast. Automated exposure con trol was utilized for the study. A dose lowering technique was utilized adhering to the principles o f ALARA. FINDINGS: No acute intracranial hemorrhage, midline shift or mass effect is present. The ventricular system is unremarkable. The basal cisterns are patent. No extra-axial collections are present. There are no findings to suggest acute dural sinus thrombosis or acute territorial infarct. No significant calvarial abnormalities are present. Visualized portions of the sinuses and mastoid air cells are dylon ar. IMPRESSION: No acute intracranial findings. ACT 112: Negative or not required by law. Electronically signed by: Sebastian Mcclain M.D. 02/07/2022 5:44 PM
--- NOTE | 2022-02-07 17:58 | CT Scan Report ---
MAXILLOFACIAL CT WITHOUT CONTRAST CLINICAL HISTORY: left lower dental infection COMPARISON STUDY: Facial bone CT January 19, 2022. TECHNIQUE: A maxillofacial CT was performed without IV contrast. Coronal and sagittal reformats were viewed. Automated exposure control was utilized for the study. A dose lowering technique was utiliz ed adhering to the principles of ALARA. FINDINGS: Please note that the head CT will be reported separately. Left lower facial infiltration is noted suggestive of cellulitis. No fluid collection is identified on this unenhanced exam to suggest an abscess. There is no soft tissue gas. Multiple dental caries are present. This suspected infectio us process is likely odontogenic in etiology although definitive source is not identified. There is m ild polypoid mucosal thickening of the left maxillary sinus. Epiglottis is normal. Parotid and subman dibular glands are unremarkable. Orbits are unremarkable on this unenhanced exam. Mild paravertebral edema is noted. IMPRESSION: 1. Left lower facial infiltration consistent with cellulitis. No fluid collection identified on this unenhanced exam to suggest abscess. Definitive source not identified although this infectious process is likely odontogenic in etiology. Multiple dental caries. 2. Mild prevertebral edema, a nonspecific finding. No loculated fluid collection. ACT 112: Negative or not required by law. Electronically signed by: Sebastian Mcclain M.D. 02/07/2022 5:56 PM
[2022-02-07 18:21] LABS: iSTAT Creatinine 16.8 mg/dl (0.6-1.3); iSTAT Hemoglobin 7.1 g/dl (12.0-16.0); iSTAT Ionized Calcium 0.99 mmol/l (1.12-1.32); iSTAT Potassium 4.8 mmol/L (3.3-5.0)
[2022-02-07 18:26] LABS: Allen Test POS (Pos); Base Excess ABG -0.2 mEq/L (-9-1.8); Basophils # (auto) 0.01 K/uL (0-0.2); Basophils % (auto) 0.2 %; Eosinophils # (auto) 0.21 K/uL (0-0.5); Eosinophils % (auto) 3.4 %; HCO3 ABG 24 mmol/L (19-24); Hematocrit (blood only) 25.9 % (37-47); Hemoglobin 8.5 g/dL (12.0-16.0); Immature Granulocytes # (auto) 0.01 K/uL (0.00-0.02); Immature Granulocytes % (auto) 0.2 %; Lymphocytes # (auto) 0.91 K/uL (1.2-3.4); Lymphocytes % (auto) 14.6 %; Mean Corpuscular Hemoglobin 32.2 pg (25-34); Mean Corpuscular Hgb Conc 32.8 g/dL (32-36); Mean Corpuscular Volume 98.1 fL (80-100); Mean Platelet Volume 8.8 fL (7.4-10.4); Monocytes # (auto) 0.24 K/uL (0.11-0.59); Monocytes % (auto) 3.9 %; Neutrophils # (auto) 4.84 K/uL (1.4-6.5); Neutrophils % (auto) 77.7 %; Oxygen Saturation ABG 96.3 % (90-95); PCO2 ABG 36 mmHg (35-46); PO2 ABG 84 mmHg (80-95); Platelet Count 128 K/uL (130-400); RDW Coefficient of Variation 13.6 % (11.5-14.5); RDW Standard Deviation 48.5 fL (36.4-46.3); Red Blood Count 2.64 M/uL (4.2-5.4); White Blood Count 6.22 K/uL (4.8-10.8); pH ABG 7.44 (7.35-7.45)
[2022-02-07 18:39] LABS: Partial Thromboplastin Ratio 0.8; Partial Thromboplastin Time 20.8 Seconds (21.0-31.0); Prothrombin Time 10.7 Seconds (9.0-12.0)
--- NOTE | 2022-02-07 18:53 | Emergency Department Note ---
Impression & Plan Uremic encephalopathy, End-stage renal disease on hemodialysis, Hyperphosphatemia, Dental infection, Missed dialysis ED Provider Note NAME: NATHALIA DUTTON AGE: 36 SEX: F ARRIVES VIA: Walk-In INFORMANT: Patient ED PROVIDER(S): Shaun Cross MD CHIEF COMPLAINT: Weakness, drowsiness. 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 The patient reports she was feeling unwell and so did not go to dialysis today. She has been in the emergency department numerous times over the past 2 weeks for evaluation of dental infection and in the documentation of these visits the patient reported also missing dialysis frequently. She reports continued right lower dental pain despite being on antibiotics. She denies any fevers, cough, congestion, vomiting or diarrhea. On arrival patient is acute on chronic ill-appearing but no acute distress, afebrile with heart in the 100s and blood pressure elevated 170/100s and vital signs otherwise stable. O2 saturation 100 percent on room air. She has diminished breath sounds at the bases but lungs are otherwise clear. She is mildly somnolent but awake though attempting to keep her self awake but frequently falls asleep. She has no focal neurologic deficits. She does agree with plan for admission given suspected worsening renal failure and likely uremia contributing to her symptoms. CT head was performed and negative acute process. CT of the face demonstrates inflammatory changes which are likely odontogenic in origin without overt dental abscess/collection. Blood work was pending, however given the urgency to have the patient complete dialysis today case was discussed with Dr. Freedman. [facility] hospitalist who will evaluate the patient for admission. Dialysis team is also aware. Case was additionally reviewed with Dr. Esteban, nephrology who agrees with this plan for admission and HD tonight. Blood work eventually resulting. WBC wnl. H/H similar to prior. Platelets 128K, nonspecific. VBG without acidemia. Chemistry without acidosis. Potassium 5.0. Phosphorus 11.6. LFTs without significant abnormality. Lactate wnl. Ammonia wnl. Blood cultures drawn. Procalcitonin 0.51. Covid-19 RNA, NAAT negative. Triage Nursing notes reviewed and agree them. Prior medical records reviewed Vital Signs: reviewed and remarkable for tachycardia. Differential diagnosis: Infection, dehydration, metabolic abnormality, hypo/hyperglycemia, electrolyte disturbance, anemia, hypoxia, cardiac sources, intracerebral event, toxicologic, neurologic, as well as other pathologies. ER treatment provided: See below. Diagnostics interpreted by me: ECG: Sinus tachycardia, 102 bpm, no ectopy, no hyperacute TW, no overt ST elevation or depression. QTC 505,. QRS 100. Cardiac Monitoring: An order for continuous cardiac monitoring was placed and demonstrated Sinus tachycardia, 102 bpm, no ectopy. Laboratory studies: See below Imaging studies: See below Consultation(s): Case was discussed with Dr. Freedman, [facility] hospitalist, who will evaluate the patient for admission. Dr. Esteban, nephrology. HPI: The patient is a pleasant 36-year-old woman with a past medical history of end-stage renal disease with history of failed renal transplant on hemodialysis, history of noncompliance with her dialysis who presents to the emergency department for evaluation of increased weakness and somnolence over the past 24- 48 hours. The patient reports she was feeling unwell and so did not go to d ialysis today. She has been in the emergency department numerous times over the past 2 weeks for evaluation of dental infection and in the documentation of these visits the patient reported also missing dialysis frequently. She reports continued right lower dental pain despite being on antibiotics. She denies any fevers, cough, congestion, vomiting or diarrhea. ROS: See above HPI for pertinent positives & negatives. A total of 10 systems reviewed and were otherwise negative. VITALS:See Below PHYSICAL EXAMINATION: GENERAL: Awake, alert, acute on chronically ill-appearing, in no distress HENT: Normocephalic, atraumatic. Oropharynx with left lower dental caries. No overt gingival edema. Mild submandibular edema. No tongue elevation or trismus. EYES: Normal conjunctiva. Sclera non-icteric. NECK: Supple. No nuchal rigidity. FROM. No JVD. No pain with tracheal manipulation. RESPIRATORY: Clear to auscultation. CARDIAC: Regular rate, normal rhythm. Extremities warm and well perfused. Pulses equal. Palpable thrill of BUE AV fistulas. LUE no longer in use. RUE fistula is being used. ABDOMEN: Soft, non-distended. No tenderness to palpation. No rebound or guarding. No masses. RECTAL: Deferred. MUSCULOSKELETAL: Chest examination reveals no tenderness. The back is symmetrical on inspection without obvious abnormality. There is no CVA tenderness to palpation. No joint edema. LOWER EXTREMITIES: Calves are equal size bilaterally and non-tender. No edema. No discoloration. NEURO: Normal sensorium. No sensory or motor deficits noted. SKIN: No rash or jaundice noted. ED COURSE: Critical Care: I have personally spent greater than 45 minutes of critical care time in the direct management of this patient. This includes bedside care, interpretation of diagnostic studies, and testing, discussion with consultants, patient, and family members, and other required patient management activities. This 45 minutes is in excess of all separately billable procedures. Shaun Cross MD Past Med/Surg History Medical History Anemia due to end stage renal disease Anxiety and depression Asthma "BEEN A WHILE" SINCE USING LAST RESCUE INHALER AVF (arteriovenous fistula) bilt---currently using right for dialysis CKD (chronic kidney disease) stage V requiring chronic dialysis Dialysis patient SATURDAY/SAT/SATURDAY AT [facility] DM2 (diabetes mellitus, type 2) ESRD (end stage renal disease) on dialysis Fistula right arm (currently being used) and left arm FSGS (focal segmental glomerulosclerosis) DX INITIALLY 2012 (CAUSING ESRD 2012) GERD (gastroesophageal reflux disease) History of abnormal cervical Papanicolaou smear HTN (hypertension) Peripheral neuropathy Prolonged QT interval Restless leg syndrome Surgical History H/O eye surgery LASER SURGERY LEFT H/O hernia repair ABDOMINAL WALL H/O knee surgery LEFT KNEE X 2 H/O tubal ligation H/O: X 2 History of cardiac cath 2016 NO STENTS History of cholecystectomy History of colonoscopy History of surgery (~09/09/20) perm cath replacement History of surgery left arm d/t clot in arm from AV fistula use @ [facility] History of tooth extraction three TOOTH Kidney transplant recipient 2013 AT [facility] S/P arteriovenous (AV) fistula creation right arm Family History Grandmother Hx of CABG Mother Diabetes Father Crohn's disease Grandfather (Maternal) Diabetes Uncle Diabetes Grandmother (Maternal) Family history of reaction to anesthesia difficulty waking with colonoscopy Social History Smoking Status: Former smoker Tobacco Type: Cigarettes Cigarettes Per Day: 20; Smoking End Date: 12/24/21; Second Hand Exposure: No; Do You Dip or Chew Tobacco: No; Hx Alcohol Use: Yes Alcohol type: hard liquor Alcohol Intake Frequency Comment: q3 months Hx Substance Use: Yes Last Used Substance: Days (ago) Preferred Language: Bruneian Communication Ability: Effective Quality Control Tech Raw Materials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 Beliefs That Will Affect Care: None marital status: Single Current Living Situation: Family and Significant Other Current Living Situation Comment: Lives with fiance and kids How many Children do You have: 3 Feels Safe at Home: Yes Safety Concerns: Feels Safe At This Time Assistive Devices: None Allergies Allergies Allergy/AdvReac Type Severity Reaction Status Date / Time cefaclor Allergy Intermediate Rash Verified 02/07/22 19:01 amoxicillin AdvReac Intermediate VOMITING Verified 02/07/22 19:01 clavulanic acid AdvReac Intermediate VOMITING Verified 02/07/22 19:01 Home Meds Home Medications Medication Instructions Recorded Confirmed ferric citrate 210 mg iron tablet 210 - 420 mg PO TIDM 10/17/19 02/07/22 (Auryxia) carvedilol 3.125 mg tablet 3.125 mg PO BID 12/21/19 02/07/22 hydroxyzine HCl 25 mg tablet 25 mg PO DAILY PRN 04/21/20 02/07/22 calcium acetate(phosphat bind) 667 2,001 mg PO TIDM 06/22/20 02/07/22 mg capsule albuterol sulfate 90 mcg/actuation 2 puff INHALATION QID PRN 08/01/20 02/07/22 aerosol inhaler sertraline 100 mg tablet 150 mg PO QAM 08/02/20 02/07/22 amlodipine 10 mg tablet 10 mg PO HS 08/10/20 02/07/22 vitamin B complex-vitamin C-folic 1 tab PO QAM 08/10/20 02/07/22 acid 0.8 mg tablet (Renal Vitamin) cinacalcet 30 mg tablet (Sensipar) 60 mg PO QDD 03/06/21 02/07/22 lorazepam 0.5 mg tablet 0.5 mg PO DAILY PRN 03/06/21 02/07/22 medroxyprogesterone 150 mg/mL 150 mg IM Q90D 03/06/21 02/07/22 intramuscular suspension (Depo-Provera) gabapentin 400 mg capsule 400 mg PO [facility]HS 06/27/21 02/07/22 (Neurontin) dicyclomine 10 mg capsule 10 mg PO QID PRN 01/19/22 02/07/22 doxepin 100 mg capsule 200 mg PO HS 01/19/22 02/07/22 mometasone-formoterol HFA 200 2 puff INHALATION BID 01/19/22 02/07/22 mcg-5 mcg/actuation aerosol inhaler (Dulera) omeprazole 20 mg capsule,delayed 20 mg PO AMHS 01/19/22 02/07/22 release varenicline 0.5 mg tablet 0.5 mg PO BID 01/19/22 02/07/22 nystatin 100,000 unit/mL oral 5 ml PO QID 02/07/22 02/07/22 suspension oxycodone-acetaminophen 5 mg-325 1 tab PO Q4 PRN 02/07/22 02/07/22 mg tablet Previous Rx's Medication Instructions Recorded diclofenac sodium 1 % topical gel 2 g EXT TID #100 g 01/23/22 (Voltaren Arthritis Pain) Results & Data (ED) Vital Signs Vital Signs - 24 hr 02/07/22 14:52 02/07/22 16:00 02/07/22 17:41 Temperature 36.6 C Temperature Source Temporal Artery Scan Pulse Rate 111 H 101 H Pulse Rate [Apical] 104 H Pulse Rhythm [Apical] Regular Respiratory Rate 16 16 19 Respiratory Effort / Characteristics Non-Labored Spontaneous Respiratory Depth Normal Blood Pressure 171/106 H Blood Pressure Mean 127 Pulse Oximetry 95 98 100 Oxygen Delivery Method Room Air Room Air Sepsis Recent Fever Within 48 Hours No Sepsis New/Unexplained Change in Mental Status N/A Sepsis Action Taken by Nursing No Action Required Laboratory Data Attestation: I reviewed the patient's lab results. Result diagrams: 02/09/22 09:08 02/09/22 09:08 Lab Results 02/07/22 02/07/22 02/07/22 Range/Units 17:59 17:59 17:59 WBC 6.22 (4.8-10.8) K/uL RBC 2.64 L (4.2-5.4) M/uL Hgb 8.5 L (12.0-16.0) g/dL POC Hgb (12.0-16.0) g/dl Hct 25.9 L (37-47) % POC Hct (37-47) % MCV 98.1 (80-100) fL MCH 32.2 (25-34) pg MCHC 32.8 (32-36) g/dL RDW Std Deviation 48.5 H (36.4-46.3) fL RDW Coeff of Laith 13.6 (11.5-14.5) % Plt Count 128 L (130-400) K/uL MPV 8.8 (7.4-10.4) fL Immature Gran % (Auto) 0.2 % Neut % (Auto) 77.7 % Lymph % (Auto) 14.6 % [place] % (Auto) 3.9 % Eos % (Auto) 3.4 % Baso % (Auto) 0.2 % Neut # (Auto) 4.84 (1.4-6.5) K/uL Lymph # (Auto) 0.91 L (1.2-3.4) K/uL [place] # (Auto) 0.24 (0.11-0.59) K/uL Eos # (Auto) 0.21 (0-0.5) K/uL Baso # (Auto) 0.01 (0-0.2) K/uL Immature Gran # (Auto) 0.01 (0.00-0.02) K/uL PT 10.7 (9.0-12.0) Seconds INR 1.0 (0.9-1.1) APTT 20.8 L (21.0-31.0) Seconds PTT Ratio 0.8 ABG pH (7.35-7.45) ABG pCO2 (35-46) mmHg ABG pO2 (80-95) mmHg ABG HCO3 (19-24) mmol/L ABG O2 Saturation (90-95) % ABG Base Excess (-9-1.8) mEq/L Sudhir Test (Pos) Barometric Pressure mm/Hg Oxygen Given POC Sodium (135-144) mmol/L POC Potassium (3.3-5.0) mmol/L POC Chloride (101-112) mmol/L POC Total CO2 (24-31) mmol/L POC Anion Gap (16-25) mmol/L POC BUN (7-18) mg/dl POC Creatinine (0.6-1.3) mg/dl POC Glucose (other) (70-99) mg/dl Lactate (0.4-2.0) mmol/L POC Ioniz Calcium Shadia (1.12-1.32) mmol/l Ammonia 25.0 (18-72) umol/L SARS-CoV-2, RNA, NAAT (NEGATIVE) 02/07/22 02/07/22 02/07/22 Range/Units 17:59 17:59 18:07 WBC (4.8-10.8) K/uL RBC (4.2-5.4) M/uL Hgb (12.0-16.0) g/dL POC Hgb 7.1 L (12.0-16.0) g/dl Hct (37-47) % POC Hct 21 L (37-47) % MCV (80-100) fL MCH (25-34) pg MCHC (32-36) g/dL RDW Std Deviation (36.4-46.3) fL RDW Coeff of Laith (11.5-14.5) % Plt Count (130-400) K/uL MPV (7.4-10.4) fL Immature Gran % (Auto) % Neut % (Auto) % Lymph % (Auto) % [place] % (Auto) % Eos % (Auto) % Baso % (Auto) % Neut # (Auto) (1.4-6.5) K/uL Lymph # (Auto) (1.2-3.4) K/uL [place] # (Auto) (0.11-0.59) K/uL Eos # (Auto) (0-0.5) K/uL Baso # (Auto) (0-0.2) K/uL Immature Gran # (Auto) (0.00-0.02) K/uL PT (9.0-12.0) Seconds INR (0.9-1.1) APTT (21.0-31.0) Seconds PTT Ratio ABG pH 7.44 (7.35-7.45) ABG pCO2 36 (35-46) mmHg ABG pO2 84 (80-95) mmHg ABG HCO3 24 (19-24) mmol/L ABG O2 Saturation 96.3 H (90-95) % ABG Base Excess -0.2 (-9-1.8) mEq/L Sudhir Test POS (Pos) Barometric Pressure 732.3 mm/Hg Oxygen Given ROOM AIR POC Sodium 133 L (135-144) mmol/L POC Potassium 4.8 (3.3-5.0) mmol/L POC Chloride 96 L (101-112) mmol/L POC Total CO2 23 L (24-31) mmol/L POC Anion Gap 21.0 (16-25) mmol/L POC BUN 107 H* (7-18) mg/dl POC Creatinine 16.8 H* (0.6-1.3) mg/dl POC Glucose (other) 136 H (70-99) mg/dl Lactate 0.4 (0.4-2.0) mmol/L POC Ioniz Calcium Shadia 0.99 L (1.12-1.32) mmol/l Ammonia (18-72) umol/L SARS-CoV-2, RNA, NAAT (NEGATIVE) 02/07/22 Range/Units Unknown WBC (4.8-10.8) K/uL RBC (4.2-5.4) M/uL Hgb (12.0-16.0) g/dL POC Hgb (12.0-16.0) g/dl Hct (37-47) % POC Hct (37-47) % MCV (80-100) fL MCH (25-34) pg MCHC (32-36) g/dL RDW Std Deviation (36.4-46.3) fL RDW Coeff of Laith (11.5-14.5) % Plt Count (130-400) K/uL MPV (7.4-10.4) fL Immature Gran % (Auto) % Neut % (Auto) % Lymph % (Auto) % [place] % (Auto) % Eos % (Auto) % Baso % (Auto) % Neut # (Auto) (1.4-6.5) K/uL Lymph # (Auto) (1.2-3.4) K/uL [place] # (Auto) (0.11-0.59) K/uL Eos # (Auto) (0-0.5) K/uL Baso # (Auto) (0-0.2) K/uL Immature Gran # (Auto) (0.00-0.02) K/uL PT (9.0-12.0) Seconds INR (0.9-1.1) APTT (21.0-31.0) Seconds PTT Ratio ABG pH (7.35-7.45) ABG pCO2 (35-46) mmHg ABG pO2 (80-95) mmHg ABG HCO3 (19-24) mmol/L ABG O2 Saturation (90-95) % ABG Base Excess (-9-1.8) mEq/L Sudhir Test (Pos) Barometric Pressure mm/Hg Oxygen Given POC Sodium (135-144) mmol/L POC Potassium (3.3-5.0) mmol/L POC Chloride (101-112) mmol/L POC Total CO2 (24-31) mmol/L POC Anion Gap (16-25) mmol/L POC BUN (7-18) mg/dl POC Creatinine (0.6-1.3) mg/dl POC Glucose (other) (70-99) mg/dl Lactate (0.4-2.0) mmol/L POC Ioniz Calcium Shadia (1.12-1.32) mmol/l Ammonia (18-72) umol/L SARS-CoV-2, RNA, NAAT NEGATIVE (NEGATIVE) Administered Medications Amlodipine Besylate (Amlodipine Besylate 5 Mg Tab) 10 mg PO HS NIKKI Stop: 03/09/22 21:24 Last Admin: 02/09/22 22:25 Dose: 10 mg Documented by: [id number] Admin: 02/08/22 21:04 Dose: 10 mg Documented by: [id number] Admin: 02/07/22 22:43 Dose: 10 mg Documented by: [id number] Calcium Acetate (Calcium Acetate 667 Mg Cap/Tab) 2,001 mg PO TIDM NIKKI Stop: 03/10/22 07:59 Last Admin: 02/09/22 16:40 Dose: 2,001 mg Documented by: [id number] Admin: 02/09/22 12:14 Dose: 2,001 mg Documented by: [id number] Admin: 02/09/22 08:04 Dose: 2,001 mg Documented by: [id number] Admin: 02/08/22 17:49 Dose: Not Given Documented by: [id number] Admin: 02/08/22 13:58 Dose: Not Given Documented by: [id number] Admin: 02/08/22 10:18 Dose: Not Given Documented by: [id number] Carvedilol (Carvedilol 3.125 Mg Tab) 3.125 mg PO BID [facility] Stop: 03/09/22 21:24 Last Admin: 02/09/22 22:24 Dose: 3.125 mg Documented by: [id number] Admin: 02/09/22 10:00 Dose: 3.125 mg Documented by: [id number] Admin: 02/08/22 21:04 Dose: 3.125 mg Documented by: [id number] Admin: 02/08/22 08:05 Dose: 3.125 mg Documented by: [id number] Admin: 02/07/22 22:42 Dose: 3.125 mg Documented by: [id number] Cinacalcet (Cinacalcet Hcl 30 Mg Tab) 60 mg PO QDD [facility] Stop: 03/10/22 16:29 Last Admin: 02/09/22 16:40 Dose: 60 mg Documented by: [id number] Admin: 02/08/22 17:49 Dose: Not Given Documented by: [id number] Diclofenac Sodium (Diclofenac Sod 1% Gel 100 Gm Tube) 2 gm EXT TID [facility]; Protocol Stop: 03/09/22 21:24 Last Admin: 02/09/22 20:48 Dose: 2 gm Documented by: [id number] Admin: 02/09/22 13:33 Dose: Not Given Documented by: [id number] Admin: 02/09/22 08:05 Dose: 2 gm Documented by: [id number] Admin: 02/08/22 21:06 Dose: 2 gm Documented by: [id number] Admin: 02/08/22 14:03 Dose: 2 gm Documented by: [id number] Admin: 02/08/22 08:14 Dose: 2 gm Documented by: [id number] Admin: 02/07/22 22:42 Dose: 2 gm Documented by: [id number] Doxepin HCl (Doxepin Hcl 50 Mg Capsule) 200 mg PO HS [facility] Stop: 03/09/22 21:24 Last Admin: 02/09/22 22:26 Dose: 200 mg Documented by: [id number] Admin: 02/08/22 21:04 Dose: 200 mg Documented by: [id number] Admin: 02/07/22 22:44 Dose: 200 mg Documented by: [id number] Fluticasone/Vilanterol (Fluticasone/Vilanterol 200/25mcg 14 Puffs/Inhaler) 1 puffs INH DAILY NIKKI Stop: 03/09/22 23:29 Last Admin: 02/09/22 08:05 Dose: 1 puffs Documented by: [id number] Admin: 02/08/22 08:06 Dose: 1 puffs Documented by: [id number] Admin: 02/07/22 23:44 Dose: Not Given Documented by: [id number] Gabapentin (Gabapentin 400 Mg Cap) 400 mg PO [facility]HS [facility] Stop: 03/09/22 21:24 Last Admin: 02/09/22 22:26 Dose: 400 mg Documented by: [id number] Admin: 02/09/22 08:05 Dose: 400 mg Documented by: [id number] Admin: 02/08/22 21:04 Dose: 400 mg Documented by: [id number] Admin: 02/08/22 08:05 Dose: 400 mg Documented by: [id number] Admin: 02/07/22 22:45 Dose: 400 mg Documented by: [id number] Heparin Sodium (Porcine) (Heparin Sod 5,000 Unit/0.5 Ml Vial) 5,000 units SQ Q12 [facility] Stop: 03/09/22 21:24 Last Admin: 02/09/22 21:01 Dose: Not Given Documented by: [id number] Admin: 02/09/22 09:00 Dose: Not Given Documented by: [id number] Admin: 02/08/22 21:05 Dose: Not Given Documented by: [id number] Admin: 02/08/22 10:16 Dose: Not Given Documented by: [id number] Admin: 02/07/22 22:45 Dose: 5,000 units Documented by: [id number] Ampicillin Sodium/Sulbactam Sodium 3,000 mg/ Sodium Chloride 108 mls @ 216 mls/hr IV Q24H [facility]; Protocol Stop: 02/15/22 15:59 Last Infusion: 02/09/22 17:35 Dose: 0 mls/hr Documented by: [id number] Admin: 02/09/22 16:38 Dose: 216 mls/hr Documented by: [id number] Infusion: 02/08/22 16:43 Dose: 0 mls/hr Documented by: [id number] Admin: 02/08/22 15:48 Dose: 216 mls/hr Documented by: [id number] Miscellaneous (Order Awaiting Action: Ferric Citrate [Auryxia] 210 Mg Iron Tablet) 1 ea N/A QS NIKKI Stop: 03/10/22 00:00 Last Admin: 02/09/22 16:39 Dose: Not Given Documented by: [id number] Admin: 02/09/22 08:05 Dose: Not Given Documented by: [id number] Admin: 02/08/22 23:15 Dose: Not Given Documented by: [id number] Admin: 02/08/22 16:15 Dose: Not Given Documented by: [id number] Admin: 02/08/22 10:07 Dose: Not Given Documented by: [id number] Admin: 02/07/22 23:42 Dose: Not Given Documented by: [id number] Nystatin (Nystatin Susp 500,000 U/5 Ml Udc) 5 ml PO QID NIKKI Stop: 02/17/22 21:24 Last Admin: 02/09/22 20:48 Dose: 5 ml Documented by: [id number] Admin: 02/09/22 17:45 Dose: 5 ml Documented by: [id number] Admin: 02/09/22 13:18 Dose: 5 ml Documented by: [id number] Admin: 02/09/22 08:06 Dose: 5 ml Documented by: [id number] Admin: 02/08/22 21:04 Dose: 5 ml Documented by: [id number] Admin: 02/08/22 17:13 Dose: 5 ml Documented by: [id number] Admin: 02/08/22 14:00 Dose: 5 ml Documented by: [id number] Admin: 02/08/22 08:04 Dose: 5 ml Documented by: [id number] Admin: 02/07/22 22:46 Dose: 5 ml Documented by: [id number] Oxycodone/Acetaminophen (Oxycodone/Acetaminophen 5mg/325mg Tab) 1 tab PO Q6 PRN PRN Reason: Pain Stop: 02/21/22 21:24 Last Admin: 02/09/22 20:49 Dose: 1 tab Documented by: [id number] Admin: 02/09/22 12:13 Dose: 1 tab Documented by: [id number] Admin: 02/09/22 05:21 Dose: 1 tab Documented by: [id number] Admin: 02/08/22 21:50 Dose: 1 tab Documented by: [id number] Admin: 02/08/22 15:48 Dose: 1 tab Documented by: [id number] Admin: 02/08/22 08:02 Dose: 1 tab Documented by: [id number] Pantoprazole Sodium (Pantoprazole 40 Mg Tab) 40 mg PO [facility] Stop: 03/09/22 21:24 Last Admin: 02/09/22 22:21 Dose: 40 mg Documented by: [id number] Admin: 02/09/22 08:06 Dose: 40 mg Documented by: [id number] Admin: 02/08/22 21:04 Dose: 40 mg Documented by: [id number] Admin: 02/08/22 08:04 Dose: 40 mg Documented by: [id number] Admin: 02/07/22 22:48 Dose: 40 mg Documented by: [id number] Sertraline HCl (Sertraline Hcl 50 Mg Tablet) 150 mg PO [facility] Stop: 03/10/22 08:59 Last Admin: 02/09/22 08:07 Dose: 150 mg Documented by: [id number] Admin: 02/08/22 08:04 Dose: 150 mg Documented by: [id number] Vitamin B Complex/Folic Acid (Nephrocaps) 1 cap PO [facility] Stop: 03/10/22 08:59 Last Admin: 02/09/22 08:06 Dose: 1 cap Documented by: [id number] Admin: 02/08/22 08:04 Dose: 1 cap Documented by: [id number] Discontinued Medications Cyclobenzaprine HCl (Cyclobenzaprine Hcl 10 Mg Tab) 10 mg PO NOW STA Stop: 02/08/22 19:27 Last Admin: 02/08/22 19:43 Dose: 10 mg Documented by: [id number] Cyclobenzaprine HCl (Cyclobenzaprine Hcl 10 Mg Tab) 10 mg PO NOW STA Stop: 02/09/22 08:21 Last Admin: 02/09/22 08:42 Dose: 10 mg Documented by: [id number] Epoetin Travis (Epoetin Travis 20,000 Units/Ml Vial) 20,000 units SQ TODAY@1900 [facility] Stop: 02/07/22 23:59 Last Admin: 02/07/22 21:42 Dose: 20,000 units Documented by: [id number] Epoetin Travis (Epoetin Travis 20,000 Units/Ml Vial) 20,000 units IV ONE ONE Stop: 02/08/22 08:01 Last Admin: 02/08/22 10:46 Dose: 20,000 units Documented by: [id number] Epoetin Travis (Epoetin Travis 20,000 Units/Ml Vial) 20,000 units IV 0800 [facility] Stop: 02/09/22 16:00 Last Admin: 02/09/22 14:29 Dose: 20,000 units Documented by: [id number] Heparin Sodium (Porcine) (Heparin Sod (Porcine) 1000 Unit/Ml) 1,000 units IV ONE ONE Stop: 02/09/22 07:19 Last Admin: 02/09/22 14:28 Dose: Not Given Documented by: [id number] Heparin Sodium (Porcine) (Heparin Sod (Porcine) 1000 Unit/Ml) 400 units IV Q1H [facility] Stop: 02/09/22 09:31 Last Admin: 02/09/22 14:28 Dose: Not Given Documented by: [id number] Admin: 02/09/22 14:28 Dose: Not Given Documented by: [id number] Admin: 02/09/22 14:28 Dose: Not Given Documented by: [id number] Ampicillin Sodium/Sulbactam Sodium 3,000 mg/ Sodium Chloride 108 mls @ 200 mls/hr IV TODAY@1715 ONE; Protocol Stop: 02/07/22 17:47 Last Infusion: 02/07/22 22:11 Dose: 0 mls/hr Documented by: [id number] Admin: 02/07/22 21:43 Dose: 200 mls/hr Documented by: [id number] Miscellaneous (No Heparin In Dialysis) 1 ea N/A ONE ONE Stop: 02/07/22 17:30 Last Admin: 02/07/22 21:43 Dose: Not Given Documented by: [id number] Miscellaneous (Order Awaiting Action: Varenicline 0.5 Mg Tablet) 1 ea N/A QS [facility] Stop: 03/09/22 21:24 Last Admin: 02/08/22 10:07 Dose: Not Given Documented by: [id number] Admin: 02/07/22 23:43 Dose: Not Given Documented by: [id number] Admin: 02/07/22 23:41 Dose: Not Given Documented by: [id number] Miscellaneous (No Heparin In Dialysis) 1 ea N/A ONE ONE Stop: 02/08/22 07:54 Last Admin: 02/08/22 10:46 Dose: Not Given Documented by: [id number] Non-Formulary Medication (Mometasone-Formoterol [Dulera]) 2 puffs INH BID NIKKI Stop: 03/09/22 21:24 Last Admin: 02/07/22 23:42 Dose: Not Given Documented by: [id number] Imaging Data Radiologist's Impression: Chest X-Ray 02/07/22 14:55 SINGLE VIEW CHEST CLINICAL HISTORY: Illness. FINDINGS: An AP, portable, upright chest radiograph is compared to study dated 01/31/2022 and correlated with chest CT dated 08/11/2020. The examination is degraded by portable technique and apical lordotic positioning. A vascular stent projects over the thoracic inlet. The heart is enlarged and there is mild pulmonary vascular congestion. No airspace consolidation or large pleural effusion is identified. No pneumothorax is seen. The skeletal structures appear osteopenic. The bony thorax is grossly intact. IMPRESSION: Cardiomegaly with mild pulmonary vascular congestion. ACT 112: Negative or not required by law. Electronically signed by: North Quintero M.D. 02/07/2022 4:[address] 02/07/22 16:[address] WITHOUT CONTRAST CLINICAL HISTORY: left lower dental infection COMPARISON STUDY: Facial bone CT January 19, 2022. TECHNIQUE: A maxillofacial CT was performed without IV contrast. Coronal and sagittal reformats were viewed. Automated exposure control was utilized for the study. A dose lowering technique was utilized adhering to the principles of ALARA. FINDINGS: Please note that the head CT will be reported separately. Left lower facial infiltration is noted suggestive of cellulitis. No fluid collection is id entified on this unenhanced exam to suggest an abscess. There is no soft tissue gas. Multiple dental caries are present. This suspected infectious process is likely odontogenic in etiology although definitive source is not identified. There is mild polypoid mucosal thickening of the left maxillary sinus. Epiglottis is normal. Parotid and submandibular glands are unremarkable. Orbits are unremarkable on this unenhanced exam. Mild paravertebral edema is noted. IMPRESSION: 1. Left lower facial infiltration consistent with cellulitis. No fluid collection identified on this unenhanced exam to suggest abscess. Definitive source not identified although this infectious process is likely odontogenic in etiology. Multiple dental caries. 2. Mild prevertebral edema, a nonspecific finding. No loculated fluid collection. ACT 112: Negative or not required by law. Electronically signed by: Sebastian Mcclain M.D. 02/07/2022 5:[address] 02/07/22 16:49 CT OF THE HEAD WITHOUT CONTRAST CLINICAL HISTORY: Altered mental status. COMPARISON STUDY: Head CT January 31, 2022. CT DOSE: 1788.24 mGy.cm TECHNIQUE: Helical axial images of the head were obtained without IV contrast. Automated exposure control was utilized for the study. A dose lowering t echnique was utilized adhering to the principles of ALARA. FINDINGS: No acute intracranial hemorrhage, midline shift or mass effect is present. The ventricular system is unremarkable. The basal cisterns are patent. No extra-axial collections are present. There are no findings to suggest acute dural sinus thrombosis or acute territorial infarct. No significant calvarial abnormalities are present. Visualized portions of the sinuses and mastoid air cells are clear. IMPRESSION: No acute intracranial findings. ACT 112: Negative or not required by law. Electronically signed by: Sebastian Mcclain M.D. 02/07/2022 5:44 PM Discharge Plan Visit Data Chief Complaint: Illness Stated Complaint: MISS HER DIALYSIS TREATMENT ED Provider: Shaun Cross Discharge Problem: Uremic encephalopathy, End-stage renal disease on hemodialysis, Hyperphosphatemia, Dental infection, Missed dialysis Patient Disposition: Admitted As Inpatient Discharge Instructions Interventions: ED Discharge Assessment Last Done: 02/07/22 17:41
[2022-02-07 18:55] LABS: Albumin Globulin Ratio 1.3 (0.9-2); Albumin Level 3.9 gm/dl (3.4-5.0); BUN Creatinine Ratio 6.5 (10-20); Bilirubin,Total 0.4 mg/dl (0.2-1.0); Calcium 9.3 mg/dl (8.5-10.1); Creatinine Clr Calc Pharmacy 6.4 ml/min; Est GFR (African American) 3.2 ml/min; Est GFR (Non-African American) 2.8 ml/min; Globulin 2.9 gm/dl (2.5-4.0); Magnesium 2.5 mg/dl (1.7-2.4); Phosphorus 11.6 mg/dl (2.5-4.9); Total Protein 6.8 gm/dl (6.0-8.3)
[2022-02-07] MEDS ORDERED: EPOETIN ALFA 20,000 UNITS/ML VIAL SQ SCH (19:00)
[2022-02-07] MEDS ORDERED: EPOETIN ALFA IV SCH (19:00)
--- NOTE | 2022-02-07 19:20 | Electrocardiogram Report ---
Test Reason : Blood Pressure : / mmHG Vent. Rate : 102 BPM Atrial Rate : 102 BPM P-R Int : 156 ms QRS Dur : 100 ms QT Int : 388 ms P-R-T Axes : 046 002 037 degrees QTc Int : 505 ms Sinus tachycardia Abnormal ECG When compared with ECG of 31-JAN-2022 10:28, Nonspecific T wave abnormality no longer evident in Anterolateral leads QT has lengthened Confirmed by Daljit Thompson ([id number]) on 02/07/2022 7:20:07 PM Referred By: Confirmed By:Ric Thompson
--- NOTE | 2022-02-07 21:18 | History & Physical Report ---
Date of Service February 07, 2022 Assessment & Plan (1) Missed dialysis: (2) ESRD (end stage renal disease) on dialysis: (3) Anemia in ESRD (end-stage renal disease): Plan: ESRD on HD MWF, non compliant to HD now presenting with fluid overload - Last HD 5 days ago. Seen by nephro- urgent 2 hr HD this evening - further management per nephro Dental caries with cellulitis- Wound Clx 01/30 with MSSA and prevotella and has been on clindamycin. CT face with no abscess- details below - Tolerated zosyn in the past. Will start on unasyn- will need OP dental evaluation - Follow blood clx CT face 1. Left lower facial infiltration consistent with cellulitis. No fluid collection identified on this unenhanced exam to suggest abscess. Definitive source not identified although this infectious process is likely odontogenic in etiology. Multiple dental caries. 2. Mild prevertebral edema, a nonspecific finding. No loculated fluid collection. CT head- no acute finding DM-2- diet controlled, not on meds. SSI prn GERD- on PPI Depression- on celexa, trazodone HTN- on norvasc, coreg Tobacco abuse- on chantix and states she has not smoked in 2 months. Continue chantix DVT ppx- sc heparin Dispo- PCU tele Full code History of Present Illness Primary Care Provider: Adolph Aldridge MD 36 year old female with h/o ESRD s/p failed renal transplant and now back on HD MWF, HTN, DM who presented to the ED after she missed her dialysis today. States she did not hear the alarm off and that's how she missed the dialysis. States she has been having left lower tooth/ jaw pain for past two weeks, was evaluated in the ED last week and was discharged on clindamycin but says it is still painful and is asking for pain medication in the ED. states she takes tylenol at home but it does not help with the pain. Denies any fever, chills, nausea, vomiting, dysphagia, dyspnea, dysphonia. Last visit to dentist was over a year ago. She also states she feels sleepy but when I states that we will be hesitant to give her pain meds (dilaudid which she asked for) if she is sleepy like this, she woke up and remained awake throughout the rest of the encounter Allergies Allergy/AdvReac Type Severity Reaction Status Date / Time cefaclor Allergy Intermediate Rash Verified 02/07/22 19:01 amoxicillin AdvReac Intermediate VOMITING Verified 02/07/22 19:01 clavulanic acid AdvReac Intermediate VOMITING Verified 02/07/22 19:01 Home Medications Medication Instructions Recorded Confirmed Type ferric citrate 210 mg iron tablet 210 - 420 mg PO TIDM 10/17/19 02/07/22 History (Auryxia) carvedilol 3.125 mg tablet 3.125 mg PO BID 12/21/19 02/07/22 History hydroxyzine HCl 25 mg tablet 25 mg PO DAILY PRN 04/21/20 02/07/22 History calcium acetate(phosphat bind) 667 2,001 mg PO TIDM 06/22/20 02/07/22 History mg capsule albuterol sulfate 90 mcg/actuation 2 puff INHALATION QID PRN 08/01/20 02/07/22 History aerosol inhaler sertraline 100 mg tablet 150 mg PO QAM 08/02/20 02/07/22 History amlodipine 10 mg tablet 10 mg PO HS 08/10/20 02/07/22 History vitamin B complex-vitamin C-folic 1 tab PO QAM 08/10/20 02/07/22 History acid 0.8 mg tablet (Renal Vitamin) cinacalcet 30 mg tablet (Sensipar) 60 mg PO QDD 03/06/21 02/07/22 History lorazepam 0.5 mg tablet 0.5 mg PO DAILY PRN 03/06/21 02/07/22 History medroxyprogesterone 150 mg/mL 150 mg IM Q90D 03/06/21 02/07/22 History intramuscular suspension (Depo-Provera) gabapentin 400 mg capsule 400 mg PO AMHS 06/27/21 02/07/22 History (Neurontin) dicyclomine 10 mg capsule 10 mg PO QID PRN 01/19/22 02/07/22 History doxepin 100 mg capsule 200 mg PO HS 01/19/22 02/07/22 History mometasone-formoterol HFA 200 2 puff INHALATION BID 01/19/22 02/07/22 History mcg-5 mcg/actuation aerosol inhaler (Dulera) omeprazole 20 mg capsule,delayed 20 mg PO AMHS 01/19/22 02/07/22 History release varenicline 0.5 mg tablet 0.5 mg PO BID 01/19/22 02/07/22 History diclofenac sodium 1 % topical gel 2 g EXT TID #100 g 01/23/22 02/07/22 Rx (Voltaren Arthritis Pain) nystatin 100,000 unit/mL oral 5 ml PO QID 02/07/22 02/07/22 History suspension oxycodone-acetaminophen 5 mg-325 1 tab PO Q4 PRN 02/07/22 02/07/22 History mg tablet Past Med/Surg History Medical History Anemia due to end stage renal disease Anxiety and depression Asthma "BEEN A WHILE" SINCE USING LAST RESCUE INHALER AVF (arteriovenous fistula) bilt---currently using right for dialysis CKD (chronic kidney disease) stage V requiring chronic dialysis Dialysis patient SATURDAY/SAT/SATURDAY AT [facility] DM2 (diabetes mellitus, type 2) ESRD (end stage renal disease) on dialysis Fistula right arm (currently being used) and left arm FSGS (focal segmental glomerulosclerosis) DX INITIALLY 2012 (CAUSING ESRD 2012) GERD (gastroesophageal reflux disease) History of abnormal cervical Papanicolaou smear HTN (hypertension) Peripheral neuropathy Prolonged QT interval Restless leg syndrome Surgical History H/O eye surgery LASER SURGERY LEFT H/O hernia repair ABDOMINAL WALL H/O knee surgery LEFT KNEE X 2 H/O tubal ligation H/O: X 2 History of cardiac cath 2016 NO STENTS History of cholecystectomy History of colonoscopy History of surgery (~09/09/20) perm cath replacement History of surgery left arm d/t clot in arm from AV fistula use @ [facility] History of tooth extraction three TOOTH Kidney transplant recipient 2013 AT [facility] S/P arteriovenous (AV) fistula creation right arm Family History Grandmother Hx of CABG Mother Diabetes Father Crohn's disease Grandfather (Maternal) Diabetes Uncle Diabetes Grandmother (Maternal) Family history of reaction to anesthesia difficulty waking with colonoscopy Social History Smoking Status: Former smoker Tobacco Type: Cigarettes Cigarettes Per Day: 20; Smoking End Date: 12/24/21; Second Hand Exposure: No; Hx Alcohol Use: No Hx Substance Use: No Preferred Language: Cuban Communication Ability: Effective Blog Writer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 Beliefs That Will Affect Care: None marital status: Current Living Situation: Family and Significant Other Current Living Situation Comment: Lives with fiance and kids How many Children do You have: 3 Feels Safe at Home: Yes Assistive Devices: None Review of Systems Review of Systems: All systems reviewed & are unremarkable except as noted in Subjective Physical Exam Physical Exam: General: Sitting comfortably in bed, not in distress, on room air HEENT: EOMI, LEAH, Poor oral hygiene, dental caries Chest: Clear breath sounds bilaterally, no wheezes or crackles CVS: Regular rate and rhythm, normal heart sounds, no murmur Abdomen: Soft, non tender, not distended, normal bowel sounds Neuro: Awake, alert, oriented, conversing well, non focal Extremities: No cyanosis, clubbing or edema Skin: multiple excoriations all over Results & Data Results & Data ([facility]) Vital Signs (Past 12 Hours) Vital Signs Temp Pulse Pulse Resp BP Pulse Ox 02/07/22 17:41 101 H 19 100 02/07/22 16:00 104 H 16 98 02/07/22 14:52 36.6 C 111 H 16 171/106 H 95 Laboratory Results Short CBC 02/07/22 02/07/22 Range/Units 17:59 17:59 WBC 6.22 (4.8-10.8) K/uL Hgb 8.5 L (12.0-16.0) g/dL Hct 25.9 L (37-47) % Plt Count 128 L (130-400) K/uL Procalcitonin 0.51 H (0-0.5) ng/ml BMP 02/07/22 17:59 Sodium 136 Potassium 5.0 Chloride 94 L Carbon Dioxide 23 BUN 97 H D Creatinine 14.90 H* D Glucose 132 H Calcium 9.3 Liver Function 02/07/22 Range/Units 17:59 Total Bilirubin 0.4 (0.2-1.0) mg/dl AST 23 (13-39) U/L ALT 16 (7-52) U/L Alkaline Phosphatase 58 (34-104) U/L Albumin 3.9 (3.4-5.0) gm/dl Diagnostic Findings Chest X-Ray 02/07/22 14:55 SINGLE VIEW CHEST CLINICAL HISTORY: Illness. FINDINGS: An AP, portable, upright chest radiograph is compared to study dated 01/31/2022 and correlated with chest CT dated 08/11/2020. The examination is degraded by portable technique and apical lordotic positioning. A vascular stent projects over the thoracic inlet. The heart is enlarged and there is mild pulmonary vascular congestion. No airspace consolidation or large pleural effusion is identified. No pneumothorax is seen. The skeletal structures appear osteopenic. The bony thorax is grossly intact. IMPRESSION: Cardiomegaly with mild pulmonary vascular congestion. ACT 112: Negative or not required by law. Electronically signed by: North Quintero M.D. 02/07/2022 4:[address] 02/07/22 16:[address] WITHOUT CONTRAST CLINICAL HISTORY: left lower dental infection COMPARISON STUDY: Facial bone CT January 19, 2022. TECHNIQUE: A maxillofacial CT was performed without IV contrast. Coronal and sagittal reformats were viewed. Automated exposure control was utilized for the study. A dose lowering technique was utilized adhering to the principles of ALARA. FINDINGS: Please note that the head CT will be reported separately. Left lower facial infiltration is noted suggestive of cellulitis. No fluid collection is identified on this unenhanced exam to suggest an abscess. There is no soft tissue gas. Multiple dental caries are present. This suspected infectious process is likely odontogenic in etiology although definitive source is not identified. There is mild polypoid mucosal thickening of the left maxillary sinus. Epiglottis is normal. Parotid and submandibular glands are unremarkable. Orbits are unremarkable on this unenhanced exam. Mild paravertebral edema is noted. IMPRESSION: 1. Left lower facial infiltration consistent with cellulitis. No fluid collection identified on this unenhanced exam to suggest abscess. Definitive source not identified although this infectious process is likely odontogenic in etiology. Multiple dental caries. 2. Mild prevertebral edema, a nonspecific finding. No loculated fluid collection. ACT 112: Negative or not required by law. Electronically signed by: Sebastian Mcclain M.D. 02/07/2022 5:[address] 02/07/22 16:49 CT OF THE HEAD WITHOUT CONTRAST CLINICAL HISTORY: Altered mental status. COMPARISON STUDY: Head CT January 31, 2022. CT DOSE: 1788.24 mGy.cm TECHNIQUE: Helical axial images of the head were obtained without IV contrast. Automated exposure control was utilized for the study. A dose lowering technique was utilized adhering to the principles of ALARA. FINDINGS: No acute intracranial hemorrhage, midline shift or mass effect is present. The ventricular system is unremarkable. The basal cisterns are patent. No extra-axial collections are present. There are no findings to suggest acute dural sinus thrombosis or acute territorial infarct. No significant calvarial abnormalities are present. Visualized portions of the sinuses and mastoid air cells are clear. IMPRESSION: No acute intracranial findings. ACT 112: Negative or not required by law. Electronically signed by: Sebastian Mcclain M.D. 02/07/2022 5:44 PM Code Status & VTE Plan VTE Prophylaxis Plan VTE Prophylaxis will be ordered: Yes
[2022-02-07] MEDS ORDERED: NON-FORMULARY MEDICATION (Mometasone-Formoterol [Dulera] 200-5 mcg/actuation HFA aerosol i INH SCH (21:25)
[2022-02-07] MEDS ORDERED: LORazepam 0.5 MG TAB PO PRN (21:25)
[2022-02-07] MEDS ORDERED: hydrOXYzine HCl 25 MG TAB PO PRN (21:25)
[2022-02-07] MEDS ORDERED: AMPICILLIN/SULBACTAM SOD 3,000 MG in 0.9 % SODIUM CHLORIDE 100 ML IV SCH (21:25)
[2022-02-07] MEDS ORDERED: DICYCLOMINE HCL 10 MG CAP PO PRN (21:25)
[2022-02-07] MEDS ORDERED: ALBUTEROL HFA 8 GM INHALER INH PRN (21:25)
[2022-02-07] MEDS: carvediloL 3.125 MG TAB PO SCH (22:42)
[2022-02-07] MEDS: DICLOFENAC SOD 1% GEL 100 GM TUBE EXT SCH (22:42)
[2022-02-07] MEDS: amLODIPine BESYLATE 5 MG TAB PO SCH (22:43)
[2022-02-07] MEDS: DOXEPIN HCL 50 MG CAPSULE PO SCH (22:44)
[2022-02-07] MEDS: HEPARIN SOD 5,000 UNIT/0.5 ML VIAL SQ SCH (22:45)
[2022-02-07] MEDS: GABAPENTIN 400 MG CAP PO SCH (22:45)
[2022-02-07] MEDS: NYSTATIN SUSP 500,000 U/5 ML UDC PO SCH (22:46)
[2022-02-07] MEDS: PANTOprazole 40 MG TAB PO SCH (22:48)
[2022-02-07] MEDS: FLUTICASONE/VILANTEROL 200/25MCG 14 PUFFS/INHALER INH SCH (23:44)
[2022-02-08] MEDS ORDERED: SODIUM CHLORIDE 0.9% 1000ML 1,000 ML IV PRN (07:53)
[2022-02-08] MEDS ORDERED: EPOETIN ALFA 20,000 UNITS/ML VIAL IV ONE (08:00)
[2022-02-08] MEDS: oxyCODONE/ACETAMINOPHEN 5mg/325mg TAB PO PRN ×3 (08:02→21:50)
[2022-02-08] MEDS: NEPHROCAPS PO SCH (08:04)
[2022-02-08] MEDS: SERTRALINE HCL 50 MG TABLET PO SCH (08:04)
[2022-02-08] MEDS: PANTOprazole 40 MG TAB PO SCH ×2 (08:04→21:04)
[2022-02-08] MEDS: NYSTATIN SUSP 500,000 U/5 ML UDC PO SCH ×4 (08:04→21:04)
[2022-02-08] MEDS: carvediloL 3.125 MG TAB PO SCH ×2 (08:05→21:04)
[2022-02-08] MEDS: CALCIUM ACETATE 667 MG CAP/TAB PO SCH ×4 (08:05→17:49)
[2022-02-08] MEDS: GABAPENTIN 400 MG CAP PO SCH ×2 (08:05→21:04)
[2022-02-08] MEDS: FLUTICASONE/VILANTEROL 200/25MCG 14 PUFFS/INHALER INH SCH (08:06)
[2022-02-08] MEDS: HEPARIN SOD 5,000 UNIT/0.5 ML VIAL SQ SCH ×3 (08:07→21:05)
[2022-02-08] MEDS: DICLOFENAC SOD 1% GEL 100 GM TUBE EXT SCH ×3 (08:14→21:06)
[2022-02-08 09:11] LABS: Hemoglobin 7.9 g/dL (12.0-16.0); Mean Corpuscular Hemoglobin 32.4 pg (25-34); Mean Corpuscular Volume 98.4 fL (80-100); Mean Platelet Volume 8.6 fL (7.4-10.4); Platelet Count 117 K/uL (130-400); RDW Coefficient of Variation 13.5 % (11.5-14.5); RDW Standard Deviation 48.5 fL (36.4-46.3); Red Blood Count 2.44 M/uL (4.2-5.4); White Blood Count 5.56 K/uL (4.8-10.8)
[2022-02-08 09:17] LABS: Mean Corpuscular Hgb Conc 32.9 g/dL (32-36)
--- NOTE | 2022-02-08 09:19 | Nephrology Progress Note ---
Date of Service February 08, 2022 Assessment & Plan (1) Missed dialysis: Plan: last HD 5 days prior to admission and admitted w/ fluid overload . had 2hr HD 02/07 w/ 3.4L UF -for 4hr tx today on large dialyzer w/ 4.5L UF; no heparin as labs pending -plan further HD tomorrow as IP or OP (2) Abscess, dental: Plan: on unasyn; admission blood cxs ngtd; no leukocytosis Admission and Anticipated Discharge Date Admission Date: February 07, 2022 Subjective tolerated 3.4L UF last evening; no events overnight; states breathing better; slept well overnight; c/o myoclonic jerks; does not mention teeth Review of Systems Review of Systems: All systems reviewed & are unremarkable except as noted in Subjective Physical Exam Constitutional: well developed, well nourished, + obese and cooperative; no acute distress Eyes: EOM intact bilaterally ENMT: Ears: no external ear abnormality Nose: no external nose abnormality Mouth: + dry oral mucous membranes Neck: no nuchal rigidity Respiratory: normal respiratory effort Auscultation: + diminished lung sounds and + crackles (a few end insp crackles); no wheezes Cardiovascular: Rate/Rhythm: regular rhythm and + tachycardic Extremities: + edema (limbs and facial) and + AV fistula (BL AC) Gastrointestinal (Abdomen): Inspection/Auscultation: normal bowel sounds Percussion/Palpation: abdomen soft; abdomen nontender Musculoskeletal: Extremities: strength 5/5 throughout Skin: no rashes, warm and dry Trauma: + evidence of skin trauma (scattered scabbed pustules on face/ forearms/upper back/BLE) Psychiatric: Orientation: oriented x 3 Eye Contact: good eye contact Speech: normal rate/rhythm/volume of speech Results & Data ([facility]) Vital Signs (Past 12 Hours) Vital Signs Temp Pulse Pulse Resp BP Pulse Ox 02/08/22 08:47 36.8 C 101 H 18 166/99 H 93 02/08/22 03:56 36.7 C 102 H 21 205/99 H 95 02/07/22 23:01 105 H 02/07/22 22:13 107 H Laboratory Results pending
[2022-02-08 10:11] LABS: BUN Creatinine Ratio 5.5 (10-20); Calcium 9.4 mg/dl (8.5-10.1); Creatinine Clr Calc Pharmacy 8.7 ml/min; Est GFR (African American) 4.8 ml/min; Est GFR (Non-African American) 4.2 ml/min; Potassium 4.9 mmol/L (3.5-5.1)
[2022-02-08] MEDS: AMPICILLIN/SULBACTAM SOD 3,000 MG in 0.9 % SODIUM CHLORIDE 100 ML IV SCH (15:48)
[2022-02-08] MEDS: CINACALCET HCL 30 MG TAB PO SCH (17:49)
[2022-02-08] MEDS ORDERED: CYCLOBENZAPRINE HCL 10 MG TAB PO STA (19:26)
[2022-02-08] MEDS: DOXEPIN HCL 50 MG CAPSULE PO SCH (21:04)
[2022-02-08] MEDS: amLODIPine BESYLATE 5 MG TAB PO SCH (21:04)
--- NOTE | 2022-02-08 21:56 | Hospitalist Progress Note ---
Date of Service February 08, 2022 Assessment & Plan (1) Missed dialysis: (2) ESRD (end stage renal disease) on dialysis: (3) Anemia in ESRD (end-stage renal disease): Plan: ESRD on HD MWF, non compliant to HD now presenting with fluid overload Last HD 5 days ago. Seen by nephro- urgent 2 hr HD last night Nephrology on board Pt had HD done today stable Dental caries with cellulitis- Wound Clx 6/7 with MSSA and prevotella and has been on clindamycin. CT face with no abscess- details below Continue on IV Unasyn- will need OP dental evaluation Blood cx pending CT face 1. Left lower facial infiltration consistent with cellulitis. No fluid collection identified on this unenhanced exam to suggest abscess. Definitive source not identified although this infectious process is likely odontogenic in etiology. Multiple dental caries. 2. Mild prevertebral edema, a nonspecific finding. No loculated fluid collection. CT head- no acute finding DM-2- diet controlled, not on meds. SSI prn GERD- on PPI Depression- on celexa, trazodone HTN- on norvasc, coreg Tobacco abuse- on chantix and states she has not smoked in 2 months. Continue chantix counseling on smoking cessation DVT ppx- sc heparin Full code Admission and Anticipated Discharge Date Admission Date: February 07, 2022 Subjective Pt was seen and examined Lying in bed with no acute distress Pt had HD today Pt said that she is having pain in her teeth denies any chest pain, palpitation. dizziness and SOB Review of Systems Review of Systems: All systems reviewed & are unremarkable except as noted in Subjective Physical Exam Physical Exam: General- No acute distress Head- atraumatic Eyes- PERRL, EOMI, ENT- oropharynx clear Neck- supple, no JVD Lungs- clear to auscultation Heart- regular rhythm; no murmur Abdomen- normal bowel sounds, soft, nontender Extremities- no calf tenderness Neuro- alert, oriented x 3; PERRL, EOMI; no facial palsy; no dysarthria Skin- warm & dry Results & Data Results & Data ([facility]) Vital Signs (Past 12 Hours) Vital Signs Temp Pulse Pulse Pulse Resp BP BP 02/08/22 19:42 36.6 C 101 H 18 148/87 H 02/08/22 15:36 37.2 C 104 H 17 161/78 H 02/08/22 15:00 103 H 02/08/22 13:53 37.0 C 101 H 17 135/88 02/08/22 13:20 37.0 C 93 H 02/08/22 13:00 94 H 138/64 02/08/22 12:30 94 H 161/78 H 02/08/22 12:00 98 H 184/99 H 02/08/22 11:30 108 H 242/108 H 02/08/22 11:15 99 H 211/89 H 02/08/22 11:00 96 H 201/103 H 02/08/22 10:45 99 H 231/98 H 02/08/22 10:30 99 H 213/96 H 02/08/22 10:15 98 H 217/116 H 02/08/22 10:00 91 H 190/85 H BP Pulse Ox 02/08/22 19:42 97 02/08/22 15:36 96 02/08/22 15:00 02/08/22 13:53 92 02/08/22 13:20 155/100 H 02/08/22 13:00 02/08/22 12:30 02/08/22 12:00 02/08/22 11:30 02/08/22 11:15 02/08/22 11:00 02/08/22 10:45 02/08/22 10:30 02/08/22 10:15 02/08/22 10:00
[2022-02-09 05:21] LABS: HBSAG NON-REACTIVE (NON-REACTIVE)
[2022-02-09] MEDS: oxyCODONE/ACETAMINOPHEN 5mg/325mg TAB PO PRN ×3 (05:21→20:49)
[2022-02-09] MEDS ORDERED: SODIUM CHLORIDE 0.9% 1000ML 1,000 ML IV PRN (07:18)
[2022-02-09] MEDS ORDERED: HEPARIN SOD (PORCINE) 1000 UNIT/ML IV ONE (07:18)
[2022-02-09] MEDS ORDERED: EPOETIN ALFA 20,000 UNITS/ML VIAL IV SCH (08:00)
[2022-02-09] MEDS: CALCIUM ACETATE 667 MG CAP/TAB PO SCH ×3 (08:04→16:40)
[2022-02-09] MEDS: FLUTICASONE/VILANTEROL 200/25MCG 14 PUFFS/INHALER INH SCH (08:05)
[2022-02-09] MEDS: GABAPENTIN 400 MG CAP PO SCH ×2 (08:05→22:26)
[2022-02-09] MEDS: DICLOFENAC SOD 1% GEL 100 GM TUBE EXT SCH ×3 (08:05→20:48)
[2022-02-09] MEDS: NEPHROCAPS PO SCH (08:06)
[2022-02-09] MEDS: PANTOprazole 40 MG TAB PO SCH ×2 (08:06→22:21)
[2022-02-09] MEDS: NYSTATIN SUSP 500,000 U/5 ML UDC PO SCH ×4 (08:06→20:48)
[2022-02-09] MEDS: HEPARIN SOD 5,000 UNIT/0.5 ML VIAL SQ SCH ×3 (08:06→21:01)
[2022-02-09] MEDS: SERTRALINE HCL 50 MG TABLET PO SCH (08:07)
[2022-02-09] MEDS ORDERED: CYCLOBENZAPRINE HCL 10 MG TAB PO STA (08:20)
[2022-02-09 09:55] LABS: Hematocrit (blood only) 26.3 % (37-47); Hemoglobin 8.6 g/dL (12.0-16.0); Mean Corpuscular Hemoglobin 31.7 pg (25-34); Mean Corpuscular Hgb Conc 32.7 g/dL (32-36); Mean Platelet Volume 9.5 fL (7.4-10.4); Platelet Count 123 K/uL (130-400); RDW Coefficient of Variation 13.5 % (11.5-14.5); RDW Standard Deviation 47.7 fL (36.4-46.3); Red Blood Count 2.71 M/uL (4.2-5.4)
[2022-02-09] MEDS: carvediloL 3.125 MG TAB PO SCH ×2 (10:00→22:24)
[2022-02-09 10:18] LABS: BUN Creatinine Ratio 4.3 (10-20); Calcium 9.6 mg/dl (8.5-10.1); Creatinine Clr Calc Pharmacy 13.1 ml/min; Est GFR (Non-African American) 6.9 ml/min
[2022-02-09] MEDS: HEPARIN SOD (PORCINE) 1000 UNIT/ML IV SCH (14:28)
--- NOTE | 2022-02-09 16:05 | Nephrology Progress Note ---
Date of Service February 09, 2022 Assessment & Plan (1) Missed dialysis: Plan: last HD 5 days prior to admission and admitted w/ fluid overload . had 2hr HD 02/07 w/ 3.4L UF; had 4hr tx 02/08 -for 4hr tx today w/ goal 5L UF >> came off early as above -could be d/c home from neph standpoint to resume OP dialysis 02/12 if blood cxs remain negative; if remains in house will eval her in am for another 2 hr tx (2) Abscess, dental: Plan: on unasyn; admission blood cxs ngtd; no leukocytosis Admission and Anticipated Discharge Date Admission Date: February 07, 2022 Subjective seen on rounds early this am; breathing remains improved; no n/v; on HD today had transient drop in BP which was addressed by dialysis team; however pt opted to come off 2 hrs early Review of Systems Review of Systems: All systems reviewed & are unremarkable except as noted in Subjective Physical Exam Constitutional: well developed, well nourished, + obese and cooperative; no acute distress Eyes: EOM intact bilaterally ENMT: Ears: no external ear abnormality Nose: no external nose abnormality Mouth: + dry oral mucous membranes Neck: no nuchal rigidity Respiratory: normal respiratory effort Auscultation: + diminished lung nina nds; no wheezes Cardiovascular: Rate/Rhythm: regular rhythm and + tachycardic Extremities: + edema (limbs and facial) and + AV fistula (BL AC) Gastrointestinal (Abdomen): Inspection/Auscultation: normal bowel sounds Percussion/Palpation: abdomen soft; abdomen nontender Musculoskeletal: Extremities: strength 5/5 throughout Skin: no rashes, warm and dry Trauma: + evidence of skin trauma (scattered scabbed pustules on face/ forearms/upper back/BLE) Neurologic: sandy, fluent speech, no tremor Psychiatric: Orientation: oriented x 3 Eye Contact: good eye contact Speech: normal rate/rhythm/volume of speech Results & Data ([facility]) Vital Signs (Past 12 Hours) Vital Signs Temp Pulse Pulse Resp BP BP Pulse Ox 02/09/22 15:42 36.8 C 83 160/68 H 02/09/22 15:30 96 H 113/68 02/09/22 15:00 80 129/92 02/09/22 14:30 84 162/83 H 02/09/22 14:00 87 192/94 H 02/09/22 13:32 36.8 C 90 02/09/22 12:16 37.3 C 95 H 19 131/80 90 02/09/22 08:02 37.2 C 101 H 19 154/93 H 98 02/09/22 07:00 102 H 02/09/22 04:10 185/92 H Laboratory Results 02/09/22 09:08 02/09/22 09:08
[2022-02-09] MEDS: AMPICILLIN/SULBACTAM SOD 3,000 MG in 0.9 % SODIUM CHLORIDE 100 ML IV SCH (16:38)
[2022-02-09] MEDS: CINACALCET HCL 30 MG TAB PO SCH (16:40)
--- NOTE | 2022-02-09 18:27 | Hospitalist Progress Note ---
Date of Service February 09, 2022 Assessment & Plan (1) Missed dialysis: (2) ESRD (end stage renal disease) on dialysis: (3) Anemia in ESRD (end-stage renal disease): Plan: ESRD on HD MWF, non compliant to HD now presenting with fluid overload Last HD 5 days ago. Seen by nephro- urgent 2 hr HD last night Nephrology on board Pt had HD done today stable Dental caries with cellulitis- Wound Clx 6/ with MSSA and prevotella and has been on clindamycin. CT face with no abscess- details below Continue on IV Unasyn- will need OP dental evaluation Blood cx no growth CT face 1. Left lower facial infiltration consistent with cellulitis. No fluid collection identified on this unenhanced exam to suggest abscess. Definitive source not identified although this infectious process is likely odontogenic in etiology. Multiple dental caries. 2. Mild prevertebral edema, a nonspecific finding. No loculated fluid collection. CT head- no acute finding DM-2- diet controlled, not on meds. SSI prn GERD- on PPI Depression- on celexa, trazodone HTN- on norvasc, coreg Tobacco abuse- on chantix and states she has not smoked in 2 months. Continue chantix counseling on smoking cessation DVT ppx- sc heparin Full code Disposition Will discharge home tomorrow Admission and Anticipated Discharge Date Admission Date: February 07, 2022 Subjective Pt was seen and examined for follow ESR Lying in bed with no acute distress When I entered her room, she was sleeping Staff said that pt felt a sleep easily, but continue to ask for more narcotic for the dental pain Pt had HD today denies any chest pain, palpitation. dizziness and SOB Review of Systems Review of Systems: All systems reviewed & are unremarkable except as noted in Subjective Physical Exam Physical Exam: General- No acute distress Head- atraumatic Eyes- PERRL, EOMI, ENT- oropharynx clear Neck- supple, no JVD Lungs- clear to auscultation Heart- regular rhythm; no murmur Abdomen- normal bowel sounds, soft, nontender Extremities- no calf tenderness Neuro- alert, oriented x 3; PERRL, EOMI; no facial palsy; no dysarthria Skin- warm & dry Results & Data Results & Data ([facility]) Vital Signs (Past 12 Hours) Vital Signs Temp Pulse Pulse Pulse Resp BP BP 02/09/22 18:15 92 H 02/09/22 17:14 84 02/09/22 16:22 76 101/74 02/09/22 16:07 36.4 C L 87 22 02/09/22 15:42 36.8 C 83 02/09/22 15:30 96 H 113/68 02/09/22 15:00 80 129/92 02/09/22 14:30 84 162/83 H 02/09/22 14:00 87 192/94 H 02/09/22 13:32 36.8 C 90 02/09/22 12:16 37.3 C 95 H 19 02/09/22 08:02 37.2 C 101 H 19 02/09/22 07:00 102 H BP Pulse Ox 02/09/22 18:15 02/09/22 17:14 02/09/22 16:22 02/09/22 16:07 93/71 L 92 02/09/22 15:42 160/68 H 02/09/22 15:30 02/09/22 15:00 02/09/22 14:30 02/09/22 14:00 02/09/22 13:32 02/09/22 12:16 131/80 90 02/09/22 08:02 154/93 H 98 02/09/22 07:00
[2022-02-09] MEDS ORDERED: FIRST - Mouthwash BLM 5 ML UDP PO ONE (22:22)
[2022-02-09] MEDS: amLODIPine BESYLATE 5 MG TAB PO SCH (22:25)
[2022-02-09] MEDS: DOXEPIN HCL 50 MG CAPSULE PO SCH (22:26)
--- NOTE | 2022-02-10 08:09 | Communication Note ---
Date of Service: February 10, 2022 Last night while sleeping patient oxygen sats dropped to 70% and seemed to be breathing at 6 rates per minute. When woken sats improved.Was placed on bipap. Notified am providers.
[2022-02-10] MEDS: carvediloL 3.125 MG TAB PO SCH (08:45)
[2022-02-10] MEDS: CALCIUM ACETATE 667 MG CAP/TAB PO SCH ×3 (08:45→16:53)
[2022-02-10] MEDS: GABAPENTIN 400 MG CAP PO SCH (08:46)
[2022-02-10] MEDS: FLUTICASONE/VILANTEROL 200/25MCG 14 PUFFS/INHALER INH SCH (08:46)
[2022-02-10] MEDS: DICLOFENAC SOD 1% GEL 100 GM TUBE EXT SCH ×2 (08:46→13:30)
[2022-02-10] MEDS: NYSTATIN SUSP 500,000 U/5 ML UDC PO SCH ×3 (08:47→16:54)
[2022-02-10] MEDS: HEPARIN SOD 5,000 UNIT/0.5 ML VIAL SQ SCH (08:47)
[2022-02-10] MEDS: PANTOprazole 40 MG TAB PO SCH (08:48)
--- NOTE | 2022-02-10 09:26 | XRay Report ---
XR chest 1V portable CLINICAL HISTORY: hypoxia COMPARISON STUDY: Chest radiograph February 07, 2022. FINDINGS: There is no pneumothorax or pleural effusion. No consolidation is present. Cardiomegaly is again noted. There is no evidence for pulmonary edema. Vascular stent projects over the mediastinum. IMPRESSION: No acute cardiopulmonary findings. Cardiomegaly. ACT 112: Negative or not required by law. Electronically signed by: Sebastian Mcclain M.D. 02/10/2022 9:24 AM
[2022-02-10] MEDS: NEPHROCAPS PO SCH (11:33)
[2022-02-10] MEDS: SERTRALINE HCL 50 MG TABLET PO SCH (11:33)
[2022-02-10] MEDS: AMPICILLIN/SULBACTAM SOD 3,000 MG in 0.9 % SODIUM CHLORIDE 100 ML IV SCH (15:16)
[2022-02-10] MEDS ORDERED: ACETAMINOPHEN 500 MG TAB PO ONE (15:52)
--- NOTE | 2022-02-10 16:34 | Discharge Summary ---
Date of Service February 10, 2022 Admission HPI Per Admitting Provider 36 year old female with h/o ESRD s/p failed renal transplant and now back on HD MWF, HTN, DM who presented to the ED after she missed her dialysis today. States she did not hear the alarm off and that's how she missed the dialysis. States she has been having left lower tooth/ jaw pain for past two weeks, was evaluated in the ED last week and was discharged on clindamycin but says it is still painful and is asking for pain medication in the ED. states she takes tylenol at home but it does not help with the pain. Denies any fever, chills, nausea, vomiting, dysphagia, dyspnea, dysphonia. Last visit to dentist was over a year ago. She also states she feels sleepy but when I states that we will be hesitant to give her pain meds (dilaudid which she asked for) if she is sleepy like this, she woke up and remained awake throughout the rest of the encounter Admission Exam Per Admitting Provider General: Sitting comfortably in bed, not in distress, on room air HEENT: EOMI, LEAH, Poor oral hygiene, dental caries Chest: Clear breath sounds bilaterally, no wheezes or crackles CVS: Regular rate and rhythm, normal heart sounds, no murmur Abdomen: Soft, non tender, not distended, normal bowel sounds Neuro: Awake, alert, oriented, conversing well, non focal Extremities: No cyanosis, clubbing or edema Skin: multiple excoriations all over Discharge Exam General- No acute distress Head- atraumatic Eyes- PERRL, EOMI, ENT- oropharynx clear Neck- supple, no JVD Lungs- clear to auscultation Heart- regular rhythm; no murmur Abdomen- normal bowel sounds, soft, nontender Extremities- no calf tenderness Neuro- alert, oriented x 3; PERRL, EOMI; no facial palsy; no dysarthria Skin- warm & dry Discharge Data Allergies Allergy/AdvReac Type Severity Reaction Status Date / Time cefaclor Allergy Intermediate Rash Verified 02/07/22 19:01 amoxicillin AdvReac Intermediate VOMITING Verified 02/07/22 19:01 clavulanic acid AdvReac Intermediate VOMITING Verified 02/07/22 19:01 Consultations 02/07/22 17:07 ED Decision to Admit Stat Ordered Studies 02/07/22 16:49 CT facial bones wo con Stat CT head/brain wo con Stat Hospital Course (1) Missed dialysis: (2) ESRD (end stage renal disease) on dialysis: (3) Anemia in ESRD (end-stage renal disease): ESRD on HD MWF, non compliant to HD now presenting with fluid overload Last HD 5 days ago. Seen by nephro- urgent 2 hr HD last night Nephrology on board Pt had HD done today stable Dental caries with cellulitis- Wound Clx 01/30 with MSSA and prevotella and has been on clindamycin. CT face with no abscess- details below Continue on IV Unasyn- will need OP dental evaluation Blood cx no growth CT face 1. Left lower facial infiltration consistent with cellulitis. No fluid collection identified on this unenhanced exam to suggest abscess. Definitive source not identified although this infectious process is likely odontogenic in etiology. Multiple dental caries. 2. Mild prevertebral edema, a nonspecific finding. No loculated fluid collection. CT head- no acute finding DM-2- diet controlled, not on meds. SSI prn GERD- on PPI Depression- on celexa, trazodone HTN- on norvasc, coreg Tobacco abuse- on chantix and states she has not smoked in 2 months. Continue chantix counseling on smoking cessation DVT ppx- sc heparin Full code Disposition Will discharge home tomorrow Discharge Plan Discharge Items Patient Disposition: Home - Self-Care Reason For Visit: ESRD Discharge Diagnosis: Missed dialysis: ESRD (end stage renal disease) on dialysis: Anemia in ESRD (end-stage renal disease): Dental caries with cellulitis Activity: Resume your previous activity Non-emergency contact: Primary Care Provider Call non-emergency contact if: you have any medication questions Follow-up/Referrals: Adolph Aldridge MD [Primary Care Provider] - (Date & Time 02/15/2022 2:20 PM Provider Emelia Flaherty DO [facility] ) Diet: Dialysis Renal Addtl Attending Provider Instructions: Follow up with your primary care provider 02/15/2022 @2:20 PM Emelia Flaherty DO [facility] Follow up with your nephrology Continue Dialysis on Saturday, Saturday and Saturday Schedule outpatient appointment to see a dentist Your provider will need to refer you for a sleep study Seek Medical attention if your symptoms worsening or develop any shortness of breath Fall precaution Pending Studies at Discharge: No Stand-Alone Forms: My [facility], Smoking Cessation Medications and DC Order Prescriptions: Continued calcium acetate(phosphat bind) 667 mg capsule 2,001 mg PO TIDM RF: 0 sertraline 100 mg tablet 150 mg PO QAM RF: 0 Auryxia 210 mg iron tablet 210 - 420 mg PO TIDM RF: 0 carvedilol 3.125 mg tablet 3.125 mg PO BID RF: 0 hydroxyzine HCl 25 mg tablet 25 mg PO DAILY PRN (Reason: Anxiety and before Dialysis) RF: 0 albuterol sulfate 90 mcg/actuation HFA aerosol inhaler 2 puff INHALATION QID PRN (Reason: Shortness Of Breath) RF: 0 amlodipine 10 mg Tablet 10 mg PO HS RF: 0 Renal Vitamin 0.8 mg Tablet 1 tab PO QAM RF: 0 lorazepam 0.5 mg tablet 0.5 mg PO DAILY PRN (Reason: anxiety and before dialysis) RF: 0 medroxyprogesterone [Depo-Provera] 150 mg/mL suspension 150 mg IM Q90D RF: 0 cinacalcet [Sensipar] 30 mg Tablet 60 mg PO QDD RF: 0 gabapentin [Neurontin] 400 mg capsule 400 mg PO AMHS RF: 0 nystatin 100,000 unit/mL suspension 5 ml PO QID RF: 0 oxycodone-acetaminophen 5-325 mg tablet 1 tab PO Q4 PRN (Reason: Pain) RF: 0 dicyclomine 10 mg capsule 10 mg PO QID PRN (Reason: cyst) RF: 0 doxepin 100 mg capsule 200 mg PO HS RF: 0 omeprazole 20 mg capsule,delayed release(DR/EC) 20 mg PO AMHS RF: 0 varenicline 0.5 mg tablet 0.5 mg PO BID RF: 0 Dulera 200-5 mcg/actuation HFA aerosol inhaler 2 puff INHALATION BID RF: 0 diclofenac sodium [Voltaren Arthritis Pain] 1 % Gel 2 g EXT TID Qty: 100 RF: 0 Discharge Orders: Discharge Order (Routine); Ordered 02/10/22 Ordered By: Ambreen Lutz Admission Data Admit Date/Time: 02/07/22 17:11 Attending Provider: Ambreen Lutz Admit Provider: Elvis Freedman Primary Care Provider: Adolph Aldridge Other Providers: Elvis Freedman
[2022-02-10] MEDS: CINACALCET HCL 30 MG TAB PO SCH (16:53)
== END 2022-02-10 17:50 | disposition home or self-care (01) | DRG 640 ==
LOC: ED 14:41 → SUATTDRO 17:11 → 2S 17:11

== ENCOUNTER 2022-03-19 09:21 | Inpatient (IN) ==
--- NOTE | 2022-03-19 09:38 | Emergency Department Note ---
History of Present Illness General Chief complaint: Cardiac Assessment Time Seen by Provider: 03/19/22 09:24 Source: patient and EMS Mode of arrival: EMS Limitations: no limitations History of Present Illness This patient is a 36-year-old female who has a history of end-stage renal disease, comes in having chest pain since Saturday it is better if she rests or lays flat is worse if she moves. She does does receive dialysis Saturday y Saturday and she called dialysis and they told her to come here so she does not receive dialysis today. She says it is on the left side of her chest. She does feel short of breath at times with that its been constant. She had COVID checked yesterday and was negative according to her at the urgent care center she feels like her heart is racing at times she feels generally tired. No abdominal pain. She does use a rescue inhaler and schedule a pulmonary function test in the near future. Home Medications Medication Instructions Recorded Confirmed Type carvedilol 3.125 mg tablet 3.125 mg PO BID 12/21/19 03/19/22 History hydroxyzine HCl 25 mg tablet 25 mg PO DAILY PRN Anxiety and 04/21/20 03/19/22 History before Dialysis calcium acetate(phosphat bind) 667 2,001 mg PO TIDM 06/22/20 03/19/22 History mg capsule albuterol sulfate 90 mcg/actuation 2 puff inhalation QID PRN 08/01/20 03/19/22 History aerosol inhaler Shortness Of Breath sertraline 100 mg tablet 150 mg PO QAM 08/02/20 03/19/22 History amlodipine 10 mg tablet 10 mg PO HS 08/10/20 03/19/22 History vitamin B complex-vitamin C-folic 1 tab PO QAM 08/10/20 03/19/22 History acid 0.8 mg tablet (Renal Vitamin) cinacalcet 30 mg tablet (Sensipar) 60 mg PO QDD 03/06/21 03/19/22 History lorazepam 0.5 mg tablet 0.5 mg PO DAILY PRN anxiety and 03/06/21 03/19/22 History before dialysis medroxyprogesterone 150 mg/mL 150 mg IM Q90D 03/06/21 03/19/22 History intramuscular suspension (Depo-Provera) gabapentin 400 mg capsule 400 mg PO AMHS 11/02/21 07/25/22 History (Neurontin) dicyclomine 10 mg capsule 10 mg PO QID PRN cyst 01/19/22 03/19/22 History doxepin 100 mg capsule 200 mg PO HS 01/19/22 03/19/22 History mometasone-formoterol HFA 200 2 puff inhalation BID 01/19/22 03/19/22 History mcg-5 mcg/actuation aerosol inhaler (Dulera) omeprazole 20 mg capsule,delayed 20 mg PO AMHS 01/19/22 03/19/22 History release diclofenac sodium 1 % topical gel 2 g EXT TID #100 grams 01/23/22 03/19/22 Rx (Voltaren Arthritis Pain) Allergies Allergy/AdvReac Type Severity Reaction Status Date / Time cefaclor Allergy Intermediate Rash Verified 02/07/22 19:01 amoxicillin AdvReac Intermediate VOMITING Verified 02/07/22 19:01 clavulanic acid AdvReac Intermediate VOMITING Verified 02/07/22 19:01 Past Med/Surg History Medical History Anemia due to end stage renal disease Anxiety and depression Asthma "BEEN A WHILE" SINCE USING LAST RESCUE INHALER AVF (arteriovenous fistula) bilt---currently using right for dialysis CKD (chronic kidney disease) stage V requiring chronic dialysis Dialysis patient SATURDAY/SAT/SATURDAY AT [facility] DM2 (diabetes mellitus, type 2) ESRD (end stage renal disease) on dialysis Fistula right arm (currently being used) and left arm FSGS (focal segmental glomerulosclerosis) DX INITIALLY 2012 (CAUSING ESRD 2012) GERD (gastroesophageal reflux disease) History of abnormal cervical Papanicolaou smear HTN (hypertension) Peripheral neuropathy Prolonged QT interval Restless leg syndrome Surgical History H/O eye surgery LASER SURGERY LEFT H/O hernia repair ABDOMINAL WALL H/O knee surgery LEFT KNEE X 2 H/O tubal ligation H/O: X 2 History of cardiac cath 2016 NO STENTS History of cholecystectomy History of colonoscopy History of surgery (~09/09/20) perm cath replacement History of surgery left arm d/t clot in arm from AV fistula use @ [facility] History of tooth extraction three TOOTH Kidney transplant recipient 2014 AT [facility] S/P arteriovenous (AV) fistula creation right arm Family History Grandmother Hx of CABG Mother Diabetes Father Crohn's disease Grandfather (Maternal) Diabetes Uncle Diabetes Grandmother (Maternal) Family history of reaction to anesthesia difficulty waking with colonoscopy Social History Smoking Status: Former smoker Tobacco Type: Cigarettes Cigarettes Per Day: 20; Second Hand Exposure: No; Hx Alcohol Use: Yes Alcohol type: hard liquor Alcohol Intake Frequency Comment: q3 months Hx Substance Use: Yes Last Used Substance: Days (ago) Preferred Language: Italian Communication Ability: Effective Assistant News Director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 Beliefs That Will Affect Care: None marital status: Single Current Living Situation: Family and Significant Other Current Living Situation Comment: Lives with fiance and kids How many Children do You have: 3 Feels Safe at Home: Yes Assistive Devices: None Review of Systems A total of 10 systems reviewed and were otherwise negative Physical Exam Vital Signs Vital Signs - 24 hr 03/19/22 09:23 03/19/22 09:23 03/19/22 11:00 Temperature 36.5 C Temperature Source Oral Pulse Rate 92 H Pulse Rate [Right] 86 Respiratory Rate 20 20 Respiratory Effort / Characteristics Non-Labored Non-Labored Respiratory Depth Normal Normal Blood Pressure 196/108 H Blood Pressure [Right Arm] 198/99 H Blood Pressure Mean 137 Blood Pressure Mean [Right Arm] 132 Pulse Oximetry 96 94 Oxygen Delivery Method Room Air Room Air Room Air Sepsis Recent Fever Within 48 Hours No Sepsis New/Unexplained Change in Mental Status N/A Sepsis Action Taken by Nursing No Action Required General: Well developed well nourished not ill-appearing young female who appears in no acute distress, breathing comfortably on room air. Normal speech HEENT: Normal cephalic atraumatic. Pupils are equal round and reactive to light. Extraocular movements are intact. Oropharynx is pink with moist mucous membranes. No swelling of the mouth lips or tongue. Neck: Supple with a midline trachea. No meningeal signs or stiffness, no JVD or bruits. No Stridor. Chest: Clear to auscultation bilaterally. No wheezes or rhonchi. No increased work of breathing. Heart: Regular rate and rhythm without murmurs or gallops. Abdomen: Soft nontender, nondistended without rebound guarding or rigidity. Extremities: No cyanosis clubbing or edema. No calf tenderness or assymetry. She has a fistula in both of her arms bilaterally Spine/Back. Non tender to palpation. No CVA tenderness Skin: Good turgor without rashes. Neurologic exam: Cranial nerves two through 12 are intact. Motor and sensation are intact and symmetrical throughout. Course Administered Medications Discontinued Medications Ketorolac Tromethamine (Ketorolac Tromethamine 15 Mg/Ml Vial) 10 mg IV NOW ONE Stop: 03/19/22 11:49 Last Admin: 03/19/22 11:56 Dose: 10 mg Documented By: NRB Medical Decision Making Differential Diagnosis Acute coronary syndrome, arrhythmia, CHF, pneumothorax, PE, infection, electrolyte or metabolic Medical Records Attestation: I reviewed the patient's medical records. Home Medications Current Medication List: was personally reviewed by me Laboratory Data Attestation: I reviewed the patient's lab results. Result diagrams: 03/19/22 09:31 03/19/22 09:31 Lab Results 03/19/22 03/19/22 03/19/22 Range/Units 09:31 09:31 09:31 WBC 6.89 (4.8-10.8) K/ul RBC 2.85 L (3.93-5.22) M/uL Hgb 9.1 L (12.0-16.0) g/dl Hct 28.4 L (34.1-44.9) % MCV 99.6 (80.0-100.0) fL MCH 31.9 (25.0-34.0) pg MCHC 32.0 (32.0-36.0) g/dL RDW Std Deviation 54.1 H (36.4-46.3) fL RDW Coeff of Laith 14.9 H (11.5-14.5) % Plt Count 139 (130-400) K/uL MPV 10.6 (9.4-12.3) fL Immature Gran % (Auto) 0.3 % Neut % (Auto) 78.4 % Lymph % (Auto) 13.1 % Bath % (Auto) 4.9 % Eos % (Auto) 2.9 % Baso % (Auto) 0.4 % Neut # (Auto) 5.40 (1.4-6.5) K/uL Lymph # (Auto) 0.90 L (1.2-3.4) K/uL Bath # (Auto) 0.34 (0.24-0.82) K/uL Eos # (Auto) 0.20 (0-0.50) K/uL Baso # (Auto) 0.03 (0-0.2) K/uL Immature Gran # (Auto) 0.02 (0.00-0.02) K/uL PT 11.2 (9.0-12.0) Seconds INR 1.1 (0.9-1.1) APTT 24.4 (21.0-31.0) Seconds PTT Ratio 0.9 Sodium (136-145) mmol/L Potassium (3.5-5.1) mmol/L Chloride (98-107) mmol/L Carbon Dioxide (21-32) mmol/L Anion Gap (3-11) BUN (6-23) mg/dl Creatinine (0.6-1.2) mg/dl Est Cr Clr Drug Dosing ml/min Est GFR ( Amer) ml/min Est GFR (Non-Af Amer) ml/min BUN/Creatinine Ratio (10-20) Glucose (70-99(Fasting)) mg/dl Calcium (8.5-10.1) mg/dl Total Bilirubin (0.2-1.0) mg/dl AST (13-39) U/L ALT (7-52) U/L Alkaline Phosphatase (34-104) U/L Troponin I High Sens 61.0 H* (0-14) pg/ml Total Protein (6.0-8.3) gm/dl Albumin (3.4-5.0) gm/dl Globulin (2.5-4.0) gm/dl Albumin/Globulin Ratio (0.9-2) Lipase (11-82) U/L SARS-CoV-2, RNA, NAAT (NEGATIVE) 03/19/22 03/19/22 Range/Units 09:31 09:47 WBC (4.8-10.8) K/ul RBC (3.93-5.22) M/uL Hgb (12.0-16.0) g/dl Hct (34.1-44.9) % MCV (80.0-100.0) fL MCH (25.0-34.0) pg MCHC (32.0-36.0) g/dL RDW Std Deviation (36.4-46.3) fL RDW Coeff of Laith (11.5-14.5) % Plt Count (130-400) K/uL MPV (9.4-12.3) fL Immature Gran % (Auto) % Neut % (Auto) % Lymph % (Auto) % Bath % (Auto) % Eos % (Auto) % Baso % (Auto) % Neut # (Auto) (1.4-6.5) K/uL Lymph # (Auto) (1.2-3.4) K/uL Bath # (Auto) (0.24-0.82) K/uL Eos # (Auto) (0-0.50) K/uL Baso # (Auto) (0-0.2) K/uL Immature Gran # (Auto) (0.00-0.02) K/uL PT (9.0-12.0) Seconds INR (0.9-1.1) APTT (21.0-31.0) Seconds PTT Ratio Sodium 141 (136-145) mmol/L Potassium 3.7 (3.5-5.1) mmol/L Chloride 98 (98-107) mmol/L Carbon Dioxide 25 (21-32) mmol/L Anion Gap 18 H (3-11) BUN 47 H (6-23) mg/dl Creatinine 9.86 H* (0.6-1.2) mg/dl Est Cr Clr Drug Dosing 9.2 ml/min Est GFR ( Amer) 5.3 ml/min Est GFR (Non-Af Amer) 4.6 ml/min BUN/Creatinine Ratio 4.8 L (10-20) Glucose 134 H (70-99(Fasting)) mg/dl Calcium 9.9 (8.5-10.1) mg/dl Total Bilirubin 0.4 (0.2-1.0) mg/dl AST 18 (13-39) U/L ALT 18 (7-52) U/L Alkaline Phosphatase 63 (34-104) U/L Troponin I High Sens (0-14) pg/ml Total Protein 6.9 (6.0-8.3) gm/dl Albumin 3.9 (3.4-5.0) gm/dl Globulin 3.0 (2.5-4.0) gm/dl Albumin/Globulin Ratio 1.3 (0.9-2) Lipase 36 (11-82) U/L SARS-CoV-2, RNA, NAAT NEGATIVE (NEGATIVE) Imaging Data Attestation: I personally reviewed and interpreted this imaging study as follows: My Impression: X-rayCardiomegaly with mild increased interstitial changes Radiologist's Impression: Chest X-Ray 03/19/22 09:31 XR chest 1V portable HISTORY: Atypical Chest Pain COMPARISON: Chest 02/26/2022. FINDINGS: No pneumothorax. No pleural effusions. The cardiac silhouette remains enlarged. There is progressive interstitial/vascular thickening consistent with mild pulmonary edema. Right basilar linear densities consistent with subsegmental atelectasis. There is a vascular stent within the superior mediastinum which is unchanged. IMPRESSION: Cardiomegaly with mild interstitial pulmonary edema. This has progressed in the interval. ACT 112: Negative or not required by law. Electronically signed by: Jose Jenkins M.D. 03/19/2022 10:03 AM ECG Data Attestation: I personally reviewed and interpreted this ECG as follows: Indication: + chest pain Rate (beats per minute): 84 Rhythm: + normal sinus ECG Intervals/blocks: + Normal QRS, + Prolonged QT and + Normal ME ECG [place]: + Normal ECG ST segments: + Normal ST segments ECG Findings: no PACs or no PVCs Comparison ECG Date: from (02/26/22) [facility] Narrative This patient comes in as described above. 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 She looks well and is stable vital signs however she does have a extensive past medical history. IV access was ordered multiple blood testing was obtained. chest x-ray and EKG were obtained as well as COVID testing. she was reassessed frequently. EKG shows no ischemic changes or ectopy. She does have baseline prolonged QT. Chest x-ray shows cardiomegaly and some mild congestive heart failure changes likely consistent with some mild fluid overload given the fact that she is a dialysis patient and is due for dialysis today. She has no failure but no significant electrolytes. Her troponin is mildly elevated at 60 however she is a dialysis patient that could be causing this as well. It is difficult to 100s and rule out a cardiac event. Her EKG thus far looks normal. She was asking for pain medications and I gave her Toradol 10 mg IV. I do think she needs to be admitted/observed as she missed dialysis today and is starting to look a little fluid overload additionally needs a further cardiac/chest pain work-up. I have consulted the [facility] hospitalist and Dr. Victor to see her in ER for these measures. Continuous cardiac monitoring: Orders placed in EMR for continuous pump servicer supervisor. Upon my interpretation the patient was noted to be in normal sinus rhy thm with a rate of 80 Impression & Plan Chest pain, Elevated troponin, ESRD (end stage renal disease), CHF (congestive heart failure), Lab test negative for COVID-19 virus Discharge Plan Visit Data Chief Complaint: Cardiac Assessment ED Provider: Andrea Diaz Discharge Problem: Chest pain, Elevated troponin, ESRD (end stage renal disease), CHF (congestive heart failure), Lab test negative for COVID-19 virus : Chest pain Qualifiers: Chest pain type: unspecified Qualified Code(s): R07.9 - Chest pain, unspecified CHF (congestive heart failure) Qualifiers: Heart failure type: other Qualified Code(s): I50.9 - Heart failure, unspecified
--- NOTE | 2022-03-19 10:04 | XRay Report ---
XR chest 1V portable HISTORY: Atypical Chest Pain COMPARISON: Chest 02/26/2022. FINDINGS: No pneumothorax. No pleural effusions. The cardiac silhouette remains enlarged. There is pr ogressive interstitial/vascular thickening consistent with mild pulmonary edema. Right basilar linear densities consistent with subsegmental atelectasis. There is a vascular stent within the superior me diastinum which is unchanged. IMPRESSION: Cardiomegaly with mild interstitial pulmonary edema. This has progressed in the interval. ACT 112: Negative or not required by law. Electronically signed by: Jose Jenkins M.D. 03/19/2022 10:03 AM
[2022-03-19 11:01] LABS: Basophils # (auto) 0.03 K/uL (0-0.2); Basophils % (auto) 0.4 %; Eosinophils % (auto) 2.9 %; Hematocrit (blood only) 28.4 % (34.1-44.9); Hemoglobin 9.1 g/dl (12.0-16.0); Immature Granulocytes # (auto) 0.02 K/uL (0.00-0.02); Immature Granulocytes % (auto) 0.3 %; Lymphocytes % (auto) 13.1 %; Mean Corpuscular Hemoglobin 31.9 pg (25.0-34.0); Mean Corpuscular Volume 99.6 fL (80.0-100.0); Mean Platelet Volume 10.6 fL (9.4-12.3); Monocytes # (auto) 0.34 K/uL (0.24-0.82); Monocytes % (auto) 4.9 %; Neutrophils % (auto) 78.4 %; Platelet Count 139 K/uL (130-400); RDW Coefficient of Variation 14.9 % (11.5-14.5); RDW Standard Deviation 54.1 fL (36.4-46.3); Red Blood Count 2.85 M/uL (3.93-5.22); White Blood Count 6.89 K/ul (4.8-10.8)
[2022-03-19 11:13] LABS: INR 1.1 (0.9-1.1); Partial Thromboplastin Ratio 0.9; Partial Thromboplastin Time 24.4 Seconds (21.0-31.0); Prothrombin Time 11.2 Seconds (9.0-12.0)
[2022-03-19 11:29] LABS: Albumin Globulin Ratio 1.3 (0.9-2); Albumin Level 3.9 gm/dl (3.4-5.0); BUN Creatinine Ratio 4.8 (10-20); Bilirubin,Total 0.4 mg/dl (0.2-1.0); Calcium 9.9 mg/dl (8.5-10.1); Creatinine Clr Calc Pharmacy 9.2 ml/min; Est GFR (African American) 5.3 ml/min; Est GFR (Non-African American) 4.6 ml/min; Potassium 3.7 mmol/L (3.5-5.1); Total Protein 6.9 gm/dl (6.0-8.3)
[2022-03-19] MEDS ORDERED: KETOROLAC TROMETHAMINE 15 MG/ML VIAL IV ONE (11:48)
--- NOTE | 2022-03-19 12:39 | History & Physical Report ---
Date of Service March 19, 2022 Assessment & Plan (1) End-stage renal disease on hemodialysis: (2) Chest pain: (3) HTN (hypertension): (4) DM2 (diabetes mellitus, type 2): (5) CHF (congestive heart failure): (6) Anxiety: (7) Anemia in ESRD (end-stage renal disease): (8) Depression: Plan Ms. Arguello is a 36 year old female who [facility] with her last being discharged on February 26, 2022. She was advised by the outpatient dialysis clinic to proceed to the [facility] ED this AM. She expressed that she missed her hemodialysis appointment this morning as she was experiencing chest pain, dizziness, GARNETT, and sore throat. Her BP in the ED was 197/168. End Stage Renal Disease on Hemodialysis: -s/p failed rental transplant in 2013 -Patient is a typically non-compliant Hemodialysis patient. Follows M/W/ schedule -Last HD was Saturday03/16/22, which was completed. -Missed HD this morning outpatient due to oversleeping and experiencing GARNETT and dizziness. Was instructed by dialysis clinic to proceed to ED. -BUN/Creatinine: 47/9.86 -K+ 3.7 -Obtain AM labs BMP, Mg+, Phos+. -Renal diet ordered. -Nephrology consulted; discussed via [place] Text with Dr. Nieves. Chest Pain: -Pt complaining of right upper chest wall chest pain. -EKG obtained and unchanged from last admission 02/26/22. NSR with some QT Prolongation. -Troponin level in ED 60; likely related to hemodialysis. Will trend Troponin Q6. -Obtain AM labs BMP -Repeat EKG in AM on 03/20 -Consider ECHO based on Troponin trend HTN: -Likely hypertensive related to missed dialysis. -B/P consistent systolic > 190. -One time dose of Clonidine 0.1 PO once. Diabetes Mellitus, type 2: -Diet controlled. -Pt does not take any insulin or oral agents at this time. -Most recent HA1C December 2021: 7.1; trending upward -Renal diet ordered, will add diabetic diet. -Will order ac/hs FSBS and Sliding scale parameters. -Will repeat HA1C, consider insulin per PCP. CHF: -Some mild Pulmonary edema on CXR -No current SOB; will repeat CXR in AM Anxiety: -chronic. Continue Lorazepam 0.5 mg PO daily PRN Anemia in ESRD: -Chronic. -Hgb/Hct 9.1/28.4; typical range 7.9-9.1 Depression: Continue Sertraline 150 mg PO daily. GERD: -Continue Omeprazole 20 mg PO QAM. Disposition: PCP: Dr. Lowry Code Status: Full Code in event of cardiac or respiratory arrest Goal to return home at D/C History of Present Illness Chief Complaint: Chest Pain Primary Care Provider: Adolph Aldridge MD Ms. Arguello is a 36 year old female who is well known to the [facility] service from numerous recent admissions with her last being discharged on February 26, 2022. She was advised by the outpatient dialysis clinic to proceed to the [facility] ED this AM. She expressed that she missed her hemodialysis appointment this morning as she was experiencing chest pain, dizziness, GARNETT, and sore throat. Her BP in the ED was 197/168 and is being measured on her left forearm due to her bilateral fistulas. She did go to Urgent Care yesterday and was advised she had a viral infection and suggested supportive treatment measures. She is an ESRD patient s/p failed rental transplant in 2013; dependent on HD every // with her last HD treatment being on Friday 03/16, which was completed. She has an additional PMH that includes: Anemia of Chronic Disease, DM2, HTN, anxiety, depression and GERD. She was sitting upright in her bed when I evaluated her this morning and was in no apparent distress. She was complaining of dizziness, nausea, GARNETT, and right anterior chest pain; however denies visual or auditory changes, SOB, abdominal pain, LE swelling, or diarrhea. I discussed the above with Dr. Nieves from Nephrology; for which the patient is well known. Plan for admission under medicine service for medical management. Please see A/P for further details. Allergies Allergy/AdvReac Type Severity Reaction Status Date / Time cefaclor Allergy Intermediate Rash Verified 02/07/22 19:01 amoxicillin AdvReac Intermediate VOMITING Verified 02/07/22 19:01 clavulanic acid AdvReac Intermediate VOMITING Verified 02/07/22 19:01 Home Medications Medication Instructions Recorded Confirmed Type carvedilol 3.125 mg tablet 3.125 mg PO BID 12/21/19 03/19/22 History hydroxyzine HCl 25 mg tablet 25 mg PO DAILY PRN Anxiety and 04/21/20 03/19/22 History before Dialysis calcium acetate(phosphat bind) 667 2,001 mg PO TIDM 06/22/20 03/19/22 History mg capsule albuterol sulfate 90 mcg/actuation 2 puff inhalation QID PRN 08/01/20 03/19/22 History aerosol inhaler Shortness Of Breath sertraline 100 mg tablet 150 mg PO QAM 08/02/20 03/19/22 History amlodipine 10 mg tablet 10 mg PO HS 08/10/20 03/19/22 History vitamin B complex-vitamin C-folic 1 tab PO QAM 08/10/20 03/19/22 History acid 0.8 mg tablet (Renal Vitamin) cinacalcet 30 mg tablet (Sensipar) 60 mg PO QDD 03/06/21 03/19/22 History lorazepam 0.5 mg tablet 0.5 mg PO DAILY PRN anxiety and 03/06/21 03/19/22 History before dialysis medroxyprogesterone 150 mg/mL 150 mg IM Q90D 03/06/21 03/19/22 History intramuscular suspension (Depo-Provera) gabapentin 400 mg capsule 400 mg PO AMHS 06/27/21 03/19/22 History (Neurontin) dicyclomine 10 mg capsule 10 mg PO QID PRN cyst 01/19/22 03/19/22 History doxepin 100 mg capsule 200 mg PO HS 01/19/22 03/19/22 History mometasone-formoterol HFA 200 2 puff inhalation BID 01/19/22 03/19/22 History mcg-5 mcg/actuation aerosol inhaler (Dulera) omeprazole 20 mg capsule,delayed 20 mg PO AMHS 01/19/22 03/19/22 History release diclofenac sodium 1 % topical gel 2 g EXT TID #100 grams 01/23/22 03/19/22 Rx (Voltaren Arthritis Pain) Past Med/Surg History Medical History (Updated 03/19/22 @ 14:20 by ANGÉLICA Viveros) Anemia due to end stage renal disease Anxiety Anxiety and depression Asthma "BEEN A WHILE" SINCE USING LAST RESCUE INHALER AVF (arteriovenous fistula) bilt---currently using right for dialysis CKD (chronic kidney disease) stage V requiring chronic dialysis Depression Dialysis patient SATURDAY/SAT/SATURDAY AT [facility] DM2 (diabetes mellitus, type 2) DM2 (diabetes mellitus, type 2) ESRD (end stage renal disease) on dialysis Fistula right arm (currently being used) and left arm FSGS (focal segmental glomerulosclerosis) DX INITIALLY 2012 (CAUSING ESRD 2012) GERD (gastroesophageal reflux disease) History of abnormal cervical Papanicolaou smear HTN (hypertension) Peripheral neuropathy Prolonged QT interval Restless leg syndrome Surgical History H/O eye surgery LASER SURGERY LEFT H/O hernia repair ABDOMINAL WALL H/O knee surgery LEFT KNEE X 2 H/O tubal ligation H/O: X 2 History of cardiac cath 2016 NO STENTS History of cholecystectomy History of colonoscopy History of surgery (~09/09/20) perm cath replacement History of surgery left arm d/t clot in arm from AV fistula use @ [facility] History of tooth extraction three TOOTH Kidney transplant recipient 2013 AT [facility] S/P arteriovenous (AV) fistula creation right arm Family History Grandmother Hx of CABG Mother Diabetes Father Crohn's disease Grandfather (Maternal) Diabetes Uncle Diabetes Grandmother (Maternal) Family history of reaction to anesthesia difficulty waking with colonoscopy Social History Smoking Status: Former smoker Tobacco Type: Cigarettes Cigarettes Per Day: 20; Second Hand Exposure: No; Hx Alcohol Use: Yes Alcohol type: hard liquor Alcohol Intake Frequency Comment: q3 months Hx Substance Use: Yes Last Used Substance: Days (ago) Preferred Language: Botswanan Communication Ability: Effective Enlisted Aircrew/Aerial Observer/Gunner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 Beliefs That Will Affect Care: None marital status: Single Current Living Situation: Family and Significant Other Current Living Situation Comment: Lives with fiance and kids How many Children do You have: 3 Feels Safe at Home: Yes Assistive Devices: None Review of Systems Review of Systems: Neuro: (-) cognitive changes HEENT: (+) GARNETT, (-) visual or hearing changes CV: (+) chest pain, (-) palpitations, (-) swelling Resp: (+) SOB GI: (-) abdominal pain, (+) N, (-) vomiting, (-) diarrhea : (-) urinary changes - aneuric Skin: (-) new rashes, (-) numbness and tingling Psych: (+) anxiety, (-) depression Physical Exam Constitutional: well developed, cooperative and comfortable Respiratory: normal respiratory effort; does not use accessory muscles and no cough Auscultation: + diminished lung sounds Cardiovascular: Rate/Rhythm: regular rate and regular rhythm Heart Sounds: normal S1 and normal S2 Vessels: no JVD Extremities: normal capillary refill; no pedal edema Gastrointestinal (Abdomen): Inspection/Auscultation: abdomen normal to inspection and normal bowel sounds Percussion/Palpation: abdomen soft Skin: normal turgor and + pallor Psychiatric: Orientation: alert and oriented x 3 Insight: good insight Judgement: good judgement Genitourinary: aneuric Lymphatic: no cervical or axillary lymphadenopathy Results & Data Results & Data ([facility]) Vital Signs (Past 12 Hours) Vital Signs Temp Pulse Pulse Resp BP BP Pulse Ox 03/19/22 11:00 86 20 198/99 H 94 03/19/22 09:23 03/19/22 09:23 36.5 C 92 H 20 196/108 H 96 O2 Del Method 03/19/22 11:00 Room Air 03/19/22 09:23 Room Air 03/19/22 09:23 Room Air Laboratory Results Laboratory Results WBC 6.89 K/ul (4.8-10.8) 03/19/22 09:31 RBC 2.85 M/uL (3.93-5.22) L 03/19/22 09:31 Hgb 9.1 g/dl (12.0-16.0) L 03/19/22 09:31 Hct 28.4 % (34.1-44.9) L 03/19/22 09:31 MCV 99.6 fL (80.0-100.0) 03/19/22 09:31 MCH 31.9 pg (25.0-34.0) 03/19/22 09:31 MCHC 32.0 g/dL (32.0-36.0) 03/19/22 09:31 RDW Std Deviation 54.1 fL (36.4-46.3) H 03/19/22 09:31 RDW Coeff of Laith 14.9 % (11.5-14.5) H 03/19/22 09:31 Plt Count 139 K/uL (130-400) 03/19/22 09:31 MPV 10.6 fL (9.4-12.3) 03/19/22 09:31 Immature Gran % (Auto) 0.3 % 03/19/22 09: Neut % (Auto) 78.4 % 03/19/22 09:31 Lymph % (Auto) 13.1 % 03/19/22 09:31 [place] % (Auto) 4.9 % 03/19/22 09:31 Eos % (Auto) 2.9 % 03/19/22 09:31 Baso % (Auto) 0.4 % 03/19/22 09:31 Neut # (Auto) 5.40 K/uL (1.4-6.5) 03/19/22 09:31 Lymph # (Auto) 0.90 K/uL (1.2-3.4) L 03/19/22 09:31 [place] # (Auto) 0.34 K/uL (0.24-0.82) 03/19/22 09:31 Eos # (Auto) 0.20 K/uL (0-0.50) 03/19/22 09:31 Baso # (Auto) 0.03 K/uL (0-0.2) 03/19/22 09:31 Immature Gran # (Auto) 0.02 K/uL (0.00-0.02) 03/19/22 09:31 PT 11.2 Seconds (9.0-12.0) 03/19/22 09:31 INR 1.1 (0.9-1.1) 03/19/22 09:31 APTT 24.4 Seconds (21.0-31.0) 03/19/22 09:31 PTT Ratio 0.9 03/19/22 09:31 Sodium 141 mmol/L (136-145) 03/19/22 09:31 Potassium 3.7 mmol/L (3.5-5.1) 03/19/22 09: Chloride 98 mmol/L (98-107) 03/19/22 09:31 Carbon Dioxide 25 mmol/L (21-32) 03/19/22 09:31 Anion Gap 18 (3-11) H 03/19/22 09:31 BUN 47 mg/dl (6-23) H 03/19/22 09:31 Creatinine 9.86 mg/dl (0.6-1.2) H* 03/19/22 09:31 Est Cr Clr Drug Dosing 9.2 ml/min 03/19/22 09:31 Est GFR ( Amer) 5.3 ml/min 03/19/22 09:31 Est GFR (Non-Af Amer) 4.6 ml/min 03/19/22 09:31 BUN/Creatinine Ratio 4.8 (10-20) L 03/19/22 09:31 Glucose 134 mg/dl (70-99(Fasting)) H 03/19/22 09:31 Calcium 9.9 mg/dl (8.5-10.1) 03/19/22 09:31 Total Bilirubin 0.4 mg/dl (0.2-1.0) 03/19/22 09:31 AST 18 U/L (13-39) 03/19/22 09:31 ALT 18 U/L (7-52) 03/19/22 09:31 Alkaline Phosphatase 63 U/L (34-104) 03/19/22 09:31 Troponin I High Sens 61.0 pg/ml (0-14) H* 03/19/22 09:31 Total Protein 6.9 gm/dl (6.0-8.3) 03/19/22 09:31 Albumin 3.9 gm/dl (3.4-5.0) 03/19/22 09:31 Globulin 3.0 gm/dl (2.5-4.0) 03/19/22 09:31 Albumin/Globulin Ratio 1.3 (0.9-2) 03/19/22 09:31 Lipase 36 U/L (11-82) 03/19/22 09:31 SARS-CoV-2, RNA, NAAT NEGATIVE (NEGATIVE) 03/19/22 09:47 Diagnostic Findings Chest X-Ray 03/19/22 09:31 XR chest 1V portable HISTORY: Atypical Chest Pain COMPARISON: Chest 02/26/2022. FINDINGS: No pneumothorax. No pleural effusions. The cardiac silhouette remains enlarged. There is progressive interstitial/vascular thickening consistent with mild pulmonary edema. Right basilar linear densities consistent with sub segmental atelectasis. There is a vascular stent within the superior mediastinum which is unchanged. IMPRESSION: Cardiomegaly with mild interstitial pulmonary edema. This has progressed in the interval. ACT 112: Negative or not required by law. Electronically signed by: Jose Jenkins M.D. 03/19/2022 10:03 AM ECG Indication: chest pain Rate (beats per minute): 84 Rhythm: normal sinus Findings: + prolonged QT Comparison ECG Date: from (02/26/22) Change: no significant change Additional Comments: Poor data quality, interpretation may be adversely affected Normal sinus rhythm Cannot rule out Anterior infarct (cited on or before 19-MAR-2022) Prolonged QT Abnormal ECG When compared with ECG of 26-FEB-2022 No significant change was found Rate 84 BPM NJ interval 154 ms QRS duration 100 ms QT/QTc 438/517 Code Status & VTE Plan Code Status Full code in the event of cardiac or respiratory arrest. VTE Prophylaxis Plan VTE Prophylaxis will be ordered: Yes Supervising Physician Co-Signing Physician Notes Attending addendum: The patient was seen and examined in emergency room She has been complaining of precordial chest pain since Saturday and missed her dialysis today Complains headache as well without any associated symptoms of nausea vomiting or blurred vision or any numbness and or tingling involving any of the extremities No fever and no chills On examination Lying in bed comfortably Blood pressure noted to be high at 197/168 Chest-minimal crackles at the bases Heart-S1, S2 regular Abdomen-distended, soft and bowel sound present Extremities-no edema LABORATORY ASST-alert, 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. No focal sensory or motor deficit appreciated Labs, EKG and imaging studies reviewed Chest pain likely musculoskeletal doubt any ACS Mild congestive changes given ES renal disease on hemodialysis and missed her dialysis today Initial troponin is not significantly elevated and will get serial troponins Very high blood pressure. Will give 1 dose of oral clonidine and monitor Nephrology consulted for continuation of dialysis Agree with assessment and plan as outlined above by Malorie knight (1) CHF (congestive heart failure) Heart failure type: other Qualified Code(s): I50.9 - Heart failure, unspecified (2) Chest pain Chest pain type: unspecified Qualified Code(s): R07.9 - Chest pain, unspecified (3) HTN (hypertension) Hypertension type: unspecified Qualified Code(s): I10 - Essential (primary) hypertension
[2022-03-19] MEDS ORDERED: cloNIDine HCL 0.1 MG TAB PO ONE (14:41)
[2022-03-19] MEDS ORDERED: GLUCOSE 40% GEL 15 GM TUBE PO PRN (14:41)
[2022-03-19] MEDS ORDERED: DEXTROSE 50% 50 ML SYRINGE IV PRN (14:41)
[2022-03-19] MEDS ORDERED: CARBOHYDRATES FOR HYPOGLYCEMIA PO PRN (14:41)
[2022-03-19] MEDS ORDERED: ALUMINUM/MAGNESIUM SUSP 30 ML UDC PO PRN (14:41)
[2022-03-19] MEDS ORDERED: GLUCAGON FOR INJ 1 MG VIAL SQ PRN (14:41)
[2022-03-19] MEDS ORDERED: POLYETHYLENE (MIRALAX) 17 GM PACK PO PRN (14:41)
[2022-03-19] MEDS ORDERED: MAGNESIUM HYDROXIDE SUSP 30 ML UDC PO PRN (14:41)
[2022-03-19] MEDS ORDERED: PROMETHAZINE HCL 12.5 MG in SODIUM CHLORIDE 0.9% 50 ML IV PRN (14:41)
[2022-03-19] MEDS ORDERED: ALBUTEROL HFA 8 GM INHALER INH PRN (14:41)
[2022-03-19] MEDS ORDERED: DICYCLOMINE HCL 10 MG CAP PO PRN (14:41)
[2022-03-19] MEDS ORDERED: GLUCOSE 10 TAB/TUBE PO PRN (14:41)
[2022-03-19] MEDS ORDERED: MoRPHine SULFATE 4 MG/ML 1 ML CARP\\VIAL IV STA ×2 (15:45→21:41)
[2022-03-19] MEDS ORDERED: HEPARIN SOD (PORCINE) 1000 UNIT/ML IV ONE (16:28)
[2022-03-19] MEDS ORDERED: SODIUM CHLORIDE 0.9% 1000ML 1,000 ML IV PRN ×2 (16:28→16:49)
[2022-03-19] MEDS: LORazepam 0.5 MG TAB PO PRN (16:39)
[2022-03-19] MEDS: INSULIN ASPART PER UNIT SC SCH ×2 (16:46→21:39)
[2022-03-19] MEDS ORDERED: EPOETIN ALFA 10,000 UNITS/ML VIAL IV ONE (16:49)
--- NOTE | 2022-03-19 18:02 | Nephrology Consultation ---
Date of Consultation March 19, 2022 Assessment & Plan (1) End-stage renal disease on hemodialysis: with symptomatic volume overload d/t needing dialysis. vague and inconsistent GI sx also reported but no abdominal pain and has diet order which seems reasonable as tolerated >HD this afternoon 3 hr only d/t staff limits w/ up to 3-4L off as sbp tolerates -aggressive epo w/ HD -reeval in am for further HD prn -daily bmp, cbc History of Present Illness Reason for Consultation: ESRD on HD Requesting Physician: Dr Victor Attending Physician: Juan Victor MD History of Present Illness 36 y/o F whom I'm asked to see for dialysis needs was admitted today for management of chest pain and HTN after missing HD today. States she had routine dialysis on 03/16, then woke up that afternoon with headache, chest pain, and nausea. These sx persisted through the weekend. She hardly slept last evening d/t diarrhea alternating with constipation all night she tells me; also overslept and missed her appt for dialysis and had dizziness, GARNETT. Took tylenol for pain through the weekend w/o relief. Also with some mild upper wall chest pain. PMH includes ESRD from FSGS on MWF HD under my care at [facility] via AVF, hx of failed renal transplant, HTN, anxiety, asthma, RLS. Also w/ diet controlled DM, prolonged QT, and recently reformed tobacco abuse (quit December 2021), s/p AVF angioplasty on 06/15. HTN in ER and mild pulmonary edema on CXR. had one dose of clonidine. ECG unchanged; troponin elevation mild, attributed to dialysis. Allergies Allergy/AdvReac Type Severity Reaction Status Date / Time cefaclor Allergy Intermediate Rash Verified 02/07/22 19:01 amoxicillin AdvReac Intermediate VOMITING Verified 02/07/22 19:01 clavulanic acid AdvReac Intermediate VOMITING Verified 02/07/22 19:01 Home Medications Medication Instructions Recorded Confirmed Type carvedilol 3.125 mg tablet 3.125 mg PO BID 12/21/19 03/19/22 History hydroxyzine HCl 25 mg tablet 25 mg PO DAILY PRN Anxiety and 04/21/20 03/19/22 History before Dialysis calcium acetate(phosphat bind) 667 2,001 mg PO TIDM 06/22/20 03/19/22 History mg capsule albuterol sulfate 90 mcg/actuation 2 puff inhalation QID PRN 08/01/20 03/19/22 History aerosol inhaler Shortness Of Breath sertraline 100 mg tablet 150 mg PO QAM 08/02/20 03/19/22 History amlodipine 10 mg tablet 10 mg PO HS 08/10/20 03/19/22 History vitamin B complex-vitamin C-folic 1 tab PO QAM 08/10/20 03/19/22 History acid 0.8 mg tablet (Renal Vitamin) cinacalcet 30 mg tablet (Sensipar) 60 mg PO QDD 03/06/21 03/19/22 History lorazepam 0.5 mg tablet 0.5 mg PO DAILY PRN anxiety and 03/06/21 03/19/22 History before dialysis medroxyprogesterone 150 mg/mL 150 mg IM Q90D 03/06/21 03/19/22 History intramuscular suspension (Depo-Provera) gabapentin 400 mg capsule 400 mg PO AMHS 06/27/21 03/19/22 History (Neurontin) dicyclomine 10 mg capsule 10 mg PO QID PRN cyst 01/19/22 03/19/22 History doxepin 100 mg capsule 200 mg PO HS 01/19/22 03/19/22 History mometasone-formoterol HFA 200 2 puff inhalation BID 01/19/22 03/19/22 History mcg-5 mcg/actuation aerosol inhaler (Dulera) omeprazole 20 mg capsule,delayed 20 mg PO AMHS 01/19/22 03/19/22 History release diclofenac sodium 1 % topical gel 2 g EXT TID #100 grams 01/23/22 03/19/22 Rx (Voltaren Arthritis Pain) Patient History Medical History Anemia due to end stage renal disease Anxiety Anxiety and depression Asthma "BEEN A WHILE" SINCE USING LAST RESCUE INHALER AVF (arteriovenous fistula) bilt---currently using right for dialysis CKD (chronic kidney disease) stage V requiring chronic dialysis Depression Dialysis patient SATURDAY/SAT/SATURDAY AT [facility] DM2 (diabetes mellitus, type 2) DM2 (diabetes mellitus, type 2) ESRD (end stage renal disease) on dialysis Fistula right arm (currently being used) and left arm FSGS (focal segmental glomerulosclerosis) DX INITIALLY 2012 (CAUSING ESRD 2012) GERD (gastroesophageal reflux disease) History of abnormal cervical Papanicolaou smear HTN (hypertension) Peripheral neuropathy Prolonged QT interval Restless leg syndrome Surgical History H/O eye surgery LASER SURGERY LEFT H/O hernia repair ABDOMINAL WALL H/O knee surgery LEFT KNEE X 2 H/O tubal ligation H/O: X 2 History of cardiac cath 2016 NO STENTS History of cholecystectomy History of colonoscopy History of surgery (~09/09/20) perm cath replacement History of surgery left arm d/t clot in arm from AV fistula use @ [facility] History of tooth extraction three TOOTH Kidney transplant recipient 2013 AT [facility] S/P arteriovenous (AV) fistula creation right arm Family History Grandmother Hx of CABG Mother Diabetes Father Crohn's disease Grandfather (Maternal) Diabetes Uncle Diabetes Grandmother (Maternal) Family history of reaction to anesthesia difficulty waking with colonoscopy Social History Smoking Status: Former smoker Tobacco Type: Cigarettes Cigarettes Per Day: half a pack; Second Hand Exposure: Yes; Do You Dip or Chew Tobacco: No; Hx Alcohol Use: No Hx Substance Use: No Preferred Language: Belarusian Communication Ability: Effective Pearl Technician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 Beliefs That Will Affect Care: None marital status: Single Current Living Situation: Significant Other Current Living Situation Comment: Lives with fiance and kids How many Children do You have: 3 Other Information That Helps Us Care for You: No Feels Safe at Home: Yes Safety Concerns: Feels Safe At This Time Assistive Devices: None Review of Systems Review of Systems: All systems reviewed & are unremarkable except as noted in Subjective Physical Exam Constitutional: well developed and well nourished Eyes: EOM intact bilaterally ENMT: Ears: no external ear abnormality Nose: no external nose abnormality Mouth: + dry oral mucous membranes Neck: no nuchal rigidity Respiratory: normal respiratory effort Auscultation: + diminished lung so unds Cardiovascular: Rate/Rhythm: regular rate and regular rhythm Extremities: no edema Gastrointestinal (Abdomen): Inspection/Auscultation: normal bowel sounds Percussion/Palpation: abdomen soft; abdomen nontender Musculoskeletal: Extremities: strength 5/5 throughout Skin: no rashes, warm and dry Neurologic: sandy, fluent speech, no tremor Psychiatric: Orientation: oriented x 3 Speech: normal rate/rhythm/volume of speech Results & Data ([facility]) Vital Signs (Past 12 Hours) Vital Signs Temp Pulse Pulse Pulse Resp BP BP 03/19/22 16:53 36.8 C 85 03/19/22 17:20 84 182/88 H 03/19/22 17:00 85 194/107 H 03/19/22 14:41 03/19/22 14:41 36.7 C 87 18 181/133 H 03/19/22 16:06 85 03/19/22 14:49 36.7 C 87 18 181/133 H 03/19/22 14:30 03/19/22 14:00 86 20 03/19/22 13:02 82 20 03/19/22 11:00 86 20 03/19/22 09:23 03/19/22 09:23 36.5 C 92 H 20 196/108 H BP Pulse Ox Pulse Ox O2 Del Method O2 Del Method 03/19/22 16:53 03/19/22 17:20 03/19/22 17:00 03/19/22 14:41 97 Room Air 03/19/22 14:41 97 Room Air 03/19/22 16:06 03/19/22 14:49 97 Room Air 03/19/22 14:30 Room Air 03/19/22 14:00 198/106 H 99 Room Air 03/19/22 13:02 197/168 H 98 Room Air 03/19/22 11:00 198/99 H 94 Room Air 03/19/22 09:23 Room Air 03/19/22 09:23 96 Room Air Laboratory Results 03/19/22 09:31 03/19/22 09:31
[2022-03-19] MEDS: HEPARIN SOD (PORCINE) 1000 UNIT/ML IV SCH (18:58)
[2022-03-19] MEDS: HEPARIN SOD 5,000 UNIT/0.5 ML VIAL SQ SCH ×2 (20:21→22:03)
[2022-03-19] MEDS: DICLOFENAC SOD 1% GEL 100 GM TUBE EXT SCH ×2 (20:22→22:03)
[2022-03-19] MEDS: CALCIUM ACETATE 667 MG CAP/TAB PO SCH (20:34)
[2022-03-19] MEDS: CINACALCET HCL 30 MG TAB PO SCH (20:36)
[2022-03-19] MEDS: ACETAMINOPHEN 325 MG TAB PO PRN (20:40)
[2022-03-19] MEDS: carvediloL 3.125 MG TAB PO SCH (22:00)
[2022-03-19] MEDS: amLODIPine BESYLATE 5 MG TAB PO SCH (22:01)
[2022-03-19] MEDS: PANTOprazole 40 MG TAB PO SCH (22:01)
[2022-03-19] MEDS: hydrOXYzine HCl 25 MG TAB PO PRN (22:01)
[2022-03-19] MEDS: DOXEPIN HCL 50 MG CAPSULE PO SCH (22:02)
[2022-03-19] MEDS: GABAPENTIN 400 MG CAP PO SCH (22:02)
[2022-03-20] MEDS: HEPARIN SOD 5,000 UNIT/0.5 ML VIAL SQ SCH ×3 (06:32→20:54)
[2022-03-20 07:28] LABS: Hemoglobin 8.8 g/dl (12.0-16.0); Mean Corpuscular Hemoglobin 31.5 pg (25.0-34.0); Mean Corpuscular Hgb Conc 31.4 g/dL (32.0-36.0); Mean Corpuscular Volume 100.4 fL (80.0-100.0); Mean Platelet Volume 9.7 fL (9.4-12.3); Platelet Count 123 K/uL (130-400); RDW Standard Deviation 55.8 fL (36.4-46.3); Red Blood Count 2.79 M/uL (3.93-5.22); White Blood Count 4.42 K/ul (4.8-10.8)
[2022-03-20 07:52] LABS: BUN Creatinine Ratio 3.2 (10-20); Calcium 9.3 mg/dl (8.5-10.1); Creatinine Clr Calc Pharmacy 14.5 ml/min; Est GFR (African American) 9.2 ml/min; Magnesium 2.1 mg/dl (1.7-2.4); Phosphorus 4.7 mg/dl (2.5-4.9); Potassium 3.9 mmol/L (3.5-5.1)
[2022-03-20 08:17] LABS: Estimated Average Glucose 103 mg/dl; Hemoglobin A1C 5.2 % (4.5-5.6)
[2022-03-20] MEDS: INSULIN ASPART PER UNIT SC SCH ×4 (08:30→21:01)
[2022-03-20] MEDS: CALCIUM ACETATE 667 MG CAP/TAB PO SCH ×3 (08:49→18:26)
[2022-03-20] MEDS: ACETAMINOPHEN 325 MG TAB PO PRN ×2 (09:16→18:28)
--- NOTE | 2022-03-20 09:50 | XRay Report ---
XR chest 2V PA/lateral CLINICAL HISTORY: shortness of breath COMPARISON STUDY: Chest radiograph March 19, 2022. FINDINGS: No pneumothorax or pleural effusion is present. Cardiomegaly is unchanged. Vascular stent p rojects over the mediastinum. Pulmonary edema has slightly improved. No consolidation to suggest pneu monia. IMPRESSION: Stable cardiomegaly. Interval improvement in pulmonary edema. ACT 112: Negative or not required by law. Electronically signed by: Sebastian Mcclain M.D. 03/20/2022 9:49 AM
[2022-03-20] MEDS ORDERED: HEPARIN SOD (PORCINE) 1000 UNIT/ML IV ONE (11:20)
[2022-03-20] MEDS ORDERED: SODIUM CHLORIDE 0.9% 1000ML 1,000 ML IV PRN (11:20)
--- NOTE | 2022-03-20 11:22 | Nephrology Progress Note ---
Date of Service March 20, 2022 Assessment & Plan (1) End-stage renal disease on hemodialysis: Plan: with symptomatic volume overload and HTN needing dialysis. vague and inconsistent GI sx have resolved. BP still uncontrolled despite aggressive UF and w/ occasional chest pain >HD this afternoon 3 hr only 2-3L off as sbp tolerates -aggressive epo w/ HD -plan routine HD in AM as OP or IP depending on clinical status -daily bmp, cbc Admission and Anticipated Discharge Date Admission Date: March 19, 2022 Subjective still w/ intermittent chest pain this am ; GARNETT improved no more diarrhea or abd discomfort; tolerated 3.7 L UF yesterday on tx Review of Systems Review of Systems: All systems reviewed & are unremarkable except as noted in Subjective Physical Exam Constitutional: well developed and well nourished Eyes: EOM intact bilaterally ENMT: Ears: no external ear abnormality Nose: no external nose abnormality Mouth: + dry oral mucous membranes Neck: no nuchal rigidity Respiratory: normal respiratory effort Auscultation: + diminished lung sounds Cardiovascular: Rate/Rhythm: regular rate and regular rhythm Extremities: no edema Gastrointestinal (Abdomen): Inspection/Auscultation: normal bowel sounds Pe rcussion/Palpation: abdomen soft; abdomen nontender Musculoskeletal: Extremities: strength 5/5 throughout Skin: no rashes, warm and dry Neurologic: sandy, fluent speech, no tremor Psychiatric: Orientation: oriented x 3 Speech: normal rate/rhythm/volume of speech Results & Data ([facility]) Vital Signs (Past 12 Hours) Vital Signs Temp Pulse Pulse Resp BP Pulse Ox O2 Del Method 03/20/22 10:24 85 03/20/22 05:20 36.6 C 86 16 166/104 H 94 Room Air Laboratory Results 03/20/22 06:45 03/20/22 06:45
[2022-03-20] MEDS ORDERED: MoRPHine SULFATE 4 MG/ML 1 ML CARP\\VIAL IV STA (11:31)
[2022-03-20] MEDS ORDERED: EPOETIN ALFA 10,000 UNITS/ML VIAL IV ONE (11:45)
--- NOTE | 2022-03-20 12:26 | Electrocardiogram Report ---
Test Reason : Blood Pressure : / mmHG Vent. Rate : 084 BPM Atrial Rate : 084 BPM P-R Int : 154 ms QRS Dur : 100 ms QT Int : 438 ms P-R-T Axes : 047 019 051 degrees QTc Int : 517 ms Poor data quality, interpretation may be adversely affected Normal sinus rhythm Poor R wave progression, consider anterior MT vs. lead placement vs. LVH Prolonged QT Abnormal ECG When compared with ECG of 26-FEB-2022 07:13, No significant change was found Confirmed by Balbir Meek ([id number]) on 03/20/2022 12:26:36 PM Referred By: REFERRED SELF Confirmed By:Balbir Meek
--- NOTE | 2022-03-20 12:27 | Electrocardiogram Report ---
Test Reason : Blood Pressure : / mmHG Vent. Rate : 085 BPM Atrial Rate : 085 BPM P-R Int : 154 ms QRS Dur : 100 ms QT Int : 432 ms P-R-T Axes : 047 029 037 degrees QTc Int : 514 ms Normal sinus rhythm Poor R wave progression, consider anterior [place] vs. lead placement vs. LVH Prolonged QT Abnormal ECG When compared with ECG of 19-MAR-2022 11:09, No significant change was found Confirmed by Balbir Meek ([id number]) on 03/20/2022 12:26:50 PM Referred By: REFERRED SELF Confirmed By:Balbir Meek
--- NOTE | 2022-03-20 12:32 | Electrocardiogram Report ---
Test Reason : Blood Pressure : / mmHG Vent. Rate : 092 BPM Atrial Rate : 092 BPM P-R Int : 176 ms QRS Dur : 100 ms QT Int : 434 ms P-R-T Axes : 019 016 021 degrees QTc Int : 536 ms Normal sinus rhythm Poor R wave progression, consider anterior [place] vs. lead placement vs. LVH Prolonged QT Abnormal ECG When compared with ECG of 19-MAR-2022 15:37, No significant change was found Confirmed by Balbir Meek ([id number]) on 03/20/2022 12:32:04 PM Referred By: REFERRED SELF Confirmed By:Balbir Meek
[2022-03-20] MEDS: carvediloL 3.125 MG TAB PO SCH ×2 (13:54→20:53)
[2022-03-20] MEDS: NEPHROCAPS PO SCH (13:55)
[2022-03-20] MEDS: GABAPENTIN 400 MG CAP PO SCH ×2 (13:55→20:52)
[2022-03-20] MEDS: DICLOFENAC SOD 1% GEL 100 GM TUBE EXT SCH ×3 (13:55→20:54)
[2022-03-20] MEDS: FLUTICASONE/VILANTEROL 200/25MCG 14 PUFFS/INHALER INH SCH (13:55)
[2022-03-20] MEDS: PANTOprazole 40 MG TAB PO SCH ×2 (13:56→20:53)
[2022-03-20] MEDS: SERTRALINE HCL 50 MG TABLET PO SCH (13:56)
[2022-03-20] MEDS: LORazepam 0.5 MG TAB PO PRN (14:07)
[2022-03-20] MEDS: hydrOXYzine HCl 25 MG TAB PO PRN (14:07)
[2022-03-20] MEDS ORDERED: HYDROCODONE/ACETAMOPHEN 5/325MG TAB PO PRN (15:45)
[2022-03-20] MEDS: HEPARIN SOD (PORCINE) 1000 UNIT/ML IV SCH ×2 (15:46→16:59)
[2022-03-20] MEDS: CINACALCET HCL 30 MG TAB PO SCH (18:26)
--- NOTE | 2022-03-20 18:40 | Hospitalist Progress Note ---
Date of Service March 20, 2022 Assessment & Plan (1) End-stage renal disease on hemodialysis: (2) Chest pain: (3) HTN (hypertension): (4) DM2 (diabetes mellitus, type 2): (5) CHF (congestive heart failure): (6) Anxiety: (7) Anemia in ESRD (end-stage renal disease): (8) Depression: Plan Per admitting service notes with addendum: Next Ms. Arguello is a 36 year old [facility] with [facility] last being discharged on February 26, 2022. She was advised by the outpatient dialysis clinic to proceed to the [facility] ED this AM. She expressed that she missed her hemodialysis appointment this morning as she was experiencing chest pain, dizziness, GARNETT, and sore throat. Her BP in the ED was 197/168. End Stage Renal Disease on Hemodialysis: -s/p failed rental transplant in 2013 -Patient is a typically non-compliant Hemodialysis patient. Follows M/W/ schedule -Last HD was Saturday03/16/22, which was completed. -Missed HD on the day of admission outpatient due to oversleeping and experiencing GARNETT and dizziness. Was instructed by dialysis clinic to proceed to ED. 03/20 HD in progress Next HD planned for tomorrow Chest Pain: -Pt complaining of left upper chest wall chest pain. -EKG obtained and unchanged from last admission 02/26/22. NSR with some QT Prolongation. -Troponin level remained in the 60sx3 03/[address] chest to rule out PE Check echocardiogram to rule out pericarditis If negative, pain likely musculoskeletal etiology As needed [place] Patient declined Lidoderm patch HTN: -Likely hypertensive related to missed dialysis. Improving with dialysis today Monitor closely Continue carvedilol Diabetes Mellitus, type 2: -Diet controlled. -Pt does not take any insulin or oral agents at this time. -Most recent HA1C December 2021: 7.1; trending upward -Renal diet ordered, will add diabetic diet. CHF: -Some mild Pulmonary edema on CXR Euvolemic Anxiety: -chronic. Continue Lorazepam 0.5 mg PO daily PRN Anemia in ESRD: -Chronic. -Hgb/Hct 9.1/28.4; typical range 7.9-9.1 Depression: Continue Sertraline 150 mg PO daily. GERD: -Continue Omeprazole 20 mg PO QAM. Disposition: PCP: Dr. Lowry Code Status: Full Code in event of cardiac or respiratory arrest Goal to return home at D/C Admission and Anticipated Discharge Date Admission Date: March 19, 2022 Subjective Follow-up for chest pain, ESRD, etc. Seen while patient having dialysis into the hemodialysis unit Sleeping but easily awakened, comfortable Reports persistent left upper chest pain, worse with movement, associated with shortness of breath with exertion Pain also worse with inspiration Denies headache, dizziness, fevers or chills, cough, abdominal pain, nausea vomiting No other symptoms Review of Systems Review of Systems: all noted and negative except for above Physical Exam Physical Exam: General- oriented x 3, not in distress, speaks in sentences with no effort or accessory muscle use Head- atraumatic Eyes- PERRL, EOMI, anicteric ENT- oropharynx clear Neck- supple, no JVD, no adenopathy, no thyromegaly; carotids +2/2, no bruits appreciated Lungs- clear to auscultation bilaterally, no rales/wheezes Heart- normal rate, regular rhythm; no murmur, no gallop, no rub appreciated Positive tenderness to the left upper chest wall muscles Abdomen- normal bowel sounds, nondistended, soft, nontender, no masses or hepatosplenomegaly Extremities- no pretibial edema, no calf tenderness; peripheral pulses intact Neuro- alert, oriented x 3; CN 2-12 grossly intact; motor 5/5 bilaterally;sensation 100% on all extremities; no other gross focal neurologic deficits Skin- warm & dry Results & Data Results & Data ([facility]) Vital Signs (Past 12 Hours) Vital Signs Temp Pulse Pulse Resp BP BP Pulse Ox 03/20/22 18:19 91 H 20 153/83 H 96 03/20/22 17:00 89 168/91 H 03/20/22 16:40 87 163/107 H 03/20/22 16:20 89 157/87 H 03/20/22 16:00 86 144/101 H 03/20/22 15:40 86 153/81 H 03/20/22 15:15 89 196/98 H 03/20/22 15:00 80 169/105 H 03/20/22 14:35 37.1 C 82 03/20/22 14:45 83 162/87 H 03/20/22 15:10 89 03/20/22 14:41 03/20/22 12:09 36.8 C 87 19 186/106 H 94 03/20/22 10:24 85 Pulse Ox O2 Del Method O2 Del Method 03/20/22 18:19 Room Air 03/20/22 17:00 03/20/22 16:40 03/20/22 16:20 03/20/22 16:00 03/20/22 15:40 03/20/22 15:15 03/20/22 15:00 03/20/22 14:35 03/20/22 14:45 03/20/22 15:10 03/20/22 14:41 97 Room Air 03/20/22 12:09 Room Air 03/20/22 10:24 all noted and reviewed including below (1) Chest pain Chest pain type: unspecified Qualified Code(s): R07.9 - Chest pain, unspecified (2) HTN (hypertension) Hypertension type: unspecified Qualified Code(s): I10 - Essential (primary) hypertension (3) CHF (congestive heart failure) Heart failure type: other Qualified Code(s): I50.9 - Heart failure, uns pecified
[2022-03-20] MEDS ORDERED: OPTIRAY 320 125ml IV ONE (19:45)
--- NOTE | 2022-03-20 20:02 | CT Scan Report ---
CHEST CTA for PULMONARY ARTERIES CT DOSE: 766.39 mGy.cm HISTORY: Shortness of breath. TECHNIQUE: Multiaxial CT images of the chest were performed following the intravenous administration of contrast to evaluate the pulmonary arteries. Maximal intensity projection images were also obtaine d. A dose lowering technique was utilized adhering to the principles of ALARA. COMPARISON STUDY: Chest CT 08/11/2020. FINDINGS: The thyroid gland enhances normally. There is a patent distal left brachiocephalic vein ila nt. No significant mediastinal or hilar lymphadenopathy. The visualized liver, spleen, and adrenal gl ands are unremarkable. Normal esophagus. The heart is mildly enlarged. There are small bilateral pleu ral fusions. No pericardial effusion. Moderate coronary artery calcifications are noted. Normal calib er thoracic aorta with no evidence for a dissection. The nondiagnostic evaluation of the left lower l obe subsegmental pulmonary arteries due to the motion artifact. However, the remaining pulmonary ibis matthew show no filling defects to suggest a pulmonary embolus. No fractures within the visualized osseo us structures. The central airways are patent. No pneumothorax. Small patchy densities within the stephanie g bases favor atelectasis. There is mild interlobular septal thickening with a few small patchy groun dglass airspace opacities. This most likely represents mild pulmonary edema. IMPRESSION: 1. No evidence for pulmonary embolus. 2. Mild cardiomegaly with small bilateral pleural effusions and mild interstitial pulmonary edema. ACT 112: Negative or not required by law. Electronically signed by: Jose Jenkins M.D. 03/20/2022 8:00 PM
[2022-03-20] MEDS: DOXEPIN HCL 50 MG CAPSULE PO SCH (20:53)
[2022-03-20] MEDS: amLODIPine BESYLATE 5 MG TAB PO SCH (20:54)
[2022-03-21] MEDS: HEPARIN SOD 5,000 UNIT/0.5 ML VIAL SQ SCH ×2 (05:40→14:08)
[2022-03-21] MEDS: ACETAMINOPHEN 325 MG TAB PO PRN ×2 (05:43→08:52)
[2022-03-21] MEDS: CALCIUM ACETATE 667 MG CAP/TAB PO SCH ×2 (07:57→14:08)
[2022-03-21] MEDS: PANTOprazole 40 MG TAB PO SCH (08:01)
[2022-03-21] MEDS: INSULIN ASPART PER UNIT SC SCH ×2 (08:01→14:08)
[2022-03-21] MEDS: FLUTICASONE/VILANTEROL 200/25MCG 14 PUFFS/INHALER INH SCH (08:01)
[2022-03-21] MEDS: GABAPENTIN 400 MG CAP PO SCH (08:01)
[2022-03-21] MEDS: SERTRALINE HCL 50 MG TABLET PO SCH (08:01)
[2022-03-21] MEDS: NEPHROCAPS PO SCH (08:01)
[2022-03-21] MEDS: carvediloL 3.125 MG TAB PO SCH (08:01)
[2022-03-21] MEDS: DICLOFENAC SOD 1% GEL 100 GM TUBE EXT SCH ×2 (08:02→14:06)
[2022-03-21] MEDS ORDERED: SODIUM CHLORIDE 0.9% 1000ML 1,000 ML IV PRN (08:02)
[2022-03-21] MEDS ORDERED: HEPARIN SOD (PORCINE) 1000 UNIT/ML IV ONE (08:02)
[2022-03-21] MEDS: LORazepam 0.5 MG TAB PO PRN (08:52)
--- NOTE | 2022-03-21 10:28 | Nephrology Progress Note ---
Date of Service March 21, 2022 Assessment & Plan (1) End-stage renal disease on hemodialysis: Plan: with symptomatic volume overload and HTN needing dialysis on presentation. vague and inconsistent GI sx have resolved. BP improved now after aggressive UF and w/ occasional chest pain >HD today 3.5 hr goal 3L off as sbp tolerates -aggressive epo w/ HD ->>>will set OP target weight to 89.5 or nearest 0.5 kg of today's post weight from renal standpoint ok for d/c after HD today Admission and Anticipated Discharge Date Admission Date: March 19, 2022 Subjective still w/ intermittent chest pain > L sided upper/lower anterior; no chough; some pleuritic pain; reproducible Review of Systems Review of Systems: All systems reviewed & are unremarkable except as noted in Subjective Physical Exam Constitutional: well developed and well nourished Eyes: EOM intact bilaterally ENMT: Ears: no external ear abnormality Nose: no external nose abnormality Mouth: + dry oral mucous membranes Neck: no nuchal rigidity Respiratory: normal respiratory effort Auscultation: + diminished lung sounds Cardiovascular: Rate/Rhythm: regular rate and regular rhythm Extremities: + AV fistula (+t/b); no edema Gastrointestinal (Abdomen): Inspection/Auscultation: normal bowel sounds Percussion/Palpation: abdomen soft; abdomen nontender Musculoskeletal: Extremities: strength 5/5 throughout Skin: no rashes, warm and dry Neurologic: sandy, fluent speech, no tremor Psychiatric: Orientation: oriented x 3 Results & Data ([facility]) Vital Signs (Past 12 Hours) Vital Signs Temp Pulse Pulse Resp BP BP Pulse Ox 03/21/22 09:40 90 131/91 03/21/22 09:20 88 147/99 H 03/21/22 09:10 84 145/100 H 03/21/22 09:00 36.9 C 92 H 03/21/22 08:40 103 H 03/21/22 07:29 36.7 C 86 19 139/81 93 03/21/22 03:45 36.9 C 99 H 12 169/82 H 95 03/21/22 00:10 103 H 03/20/22 23:00 36.4 C L 101 H 16 157/98 H 92 O2 Del Method 03/21/22 09:40 03/21/22 09:20 03/21/22 09:10 03/21/22 09:00 03/21/22 08:40 03/21/22 07:29 Room Air 03/21/22 03:45 Room Air 03/21/22 00:10 03/20/22 23:00 Room Air Laboratory Results none new
[2022-03-21] MEDS: HEPARIN SOD (PORCINE) 1000 UNIT/ML IV SCH (11:36)
[2022-03-21] MEDS ORDERED: oxyCODONE/ACETAMINOPHEN 5mg/325mg TAB PO PRN (13:39)
[2022-03-21] MEDS ORDERED: oxyCODONE/ACETAMINOPHEN 5mg/325mg TAB PO STA (13:39)
--- NOTE | 2022-03-21 13:41 | Hospitalist Progress Note ---
Date of Service March 21, 2022 Assessment & Plan (1) End-stage renal disease on hemodialysis: (2) Chest pain: (3) HTN (hypertension): (4) DM2 (diabetes mellitus, type 2): (5) CHF (congestive heart failure): (6) Anxiety: (7) Anemia in ESRD (end-stage renal disease): (8) Depression: Plan Per admitting service notes with addendum: Next Ms. Arguello is a 36 year old female who is well known to the [place] [facility] service from numerous recent admissions with her last being discharged on February 26, 2022. She was advised by the outpatient dialysis clinic to proceed to the [facility] ED this AM. She expressed that she missed her hemodialysis appointment this morning as she was experiencing chest pain, dizziness, GARNETT, and sore throat. Her BP in the ED was 197/168. End Stage Renal Disease on Hemodialysis: -s/p failed rental transplant in 2013 -Patient is a typically non-compliant Hemodialysis patient. Follows M/W/ schedule -Last HD was Saturday03/16/22, which was completed. -Missed HD on the day of admission outpatient due to oversleeping and experiencing GARNETT and dizziness. Was instructed by dialysis clinic to proceed to ED. 03/21 Post HD this morning Nephrology on board Chest Pain, secondary to musculoskeletal pain -Pt complaining of left upper chest wall chest pain. -EKG obtained and unchanged from last admission 02/26/22. NSR with some QT Prolongation. -Troponin level remained in the 60sx3 03/21 CT chest: No acute PE Echocardiogram: No vegetation noted Patient reports no relief with [place], Tylenol, Toradol Tramadol contraindicated due to QT corrected in the 500s Medication review performed, patient received Percocet last month from PCP for elbow pain-advised to use only as directed, call PCP if no improvement in 2 days Patient agreeable to try Percocet Will give 10 tablets on discharge and follow-up with PCP in 1 week Will order ice packs, advised to use ice pack, gentle exercises at home HTN: -Likely hypertensive related to missed dialysis. Improved with hemodialysis Continue carvedilol Diabetes Mellitus, type 2: -Diet controlled. -Pt does not take any insulin or oral agents at this time. -Most recent HA1C December 2021: 7.1; trending upward -Follow-up with PCP CHF: -Some mild Pulmonary edema on CXR Euvolemic Anxiety: -chronic. Continue Lorazepam 0.5 mg PO daily PRN Anemia in ESRD: -Chronic. -Hgb/Hct 9.1/28.4; typical range 7.9-9.1 Depression: Continue Sertraline 150 mg PO daily. GERD: -Continue Omeprazole 20 mg PO QAM. Disposition: PCP: Dr. Lowry Code Status: Full Code in event of cardiac or respiratory arrest Discharge to home Follow-up with PCP in 1 week Continue usual hemodialysis schedule Admission and Anticipated Discharge Date Admission Date: March 19, 2022 Subjective Follow-up for chest wall pain, etc. Seen resting in bed, status postdialysis this morning Seen with [employer] who was at bedside throughout whole encounter Not in distress, appears drowsy but easily awakened States she feels fine overall, still having some moderate left upper chest wall pain, worse with movement No shortness of breath, headache, dizziness, palpitations No abdominal pain, nausea vomiting No fevers or chills No other symptoms Review of Systems Review of Systems: all noted and negative except for above Physical Exam Physical Exam: General- oriented x 3, not in distress, speaks in sentences with no effort or accessory muscle use Eyes- anicteric Neck- no JVD Lungs- clear breath sounds bilaterally, no rales/wheezes Heart- normal rate, regular rhythm; no murmurs Positive mild tenderness left upper chest wall, no ecchymosis, no erythema,/warmth/tenderness Abdomen- normal bowel sounds, nondistended, soft, nontender Extremities- no pretibial edema, no calf tenderness Neuro- alert, oriented x 3; no gross focal neurologic deficits Skin- warm & dry Results & Data Results & Data ([facility]) Vital Signs (Past 12 Hours) Vital Signs Temp Pulse Pulse Resp BP BP Pulse Ox 03/21/22 12:20 75 122/86 03/21/22 11:40 74 115/81 03/21/22 12:00 76 109/75 03/21/22 11:20 77 104/73 03/21/22 11:00 80 117/76 03/21/22 10:42 80 104/68 03/21/22 10:40 80 88/61 L 03/21/22 10:38 90 74/46 L 03/21/22 10:20 92 H 103/64 03/21/22 10:00 91 H 131/74 03/21/22 09:40 90 131/91 03/21/22 09:20 88 147/99 H 03/21/22 09:10 84 145/100 H 03/21/22 09:00 36.9 C 92 H 03/21/22 08:40 103 H 03/21/22 07:29 36.7 C 86 19 139/81 93 03/21/22 03:45 36.9 C 99 H 12 169/82 H 95 O2 Del Method 03/21/22 12:20 03/21/22 11:40 03/21/22 12:00 03/21/22 11:20 03/21/22 11:00 03/21/22 10:42 03/21/22 10:40 03/21/22 10:38 03/21/22 10:20 03/21/22 10:00 03/21/22 09:40 03/21/22 09:20 03/21/22 09:10 03/21/22 09:00 03/21/22 08:40 03/21/22 07:29 Room Air 03/21/22 03:45 Room Air all noted and reviewed including below (1) CHF (congestive heart failure) Heart failure type: other Qualified Code(s): I50.9 - Heart failure, unspecified (2) Chest pain Chest pain type: unspecified Qualified Code(s): R07.9 - Chest pain, unspecified (3) HTN (hypertension) Hypertension type: unspecified Qualified Code(s): I10 - Essential (primary) hypertension
== END 2022-03-21 17:10 | disposition home or self-care (01) | DRG 698 ==
LOC: ED 09:21 → EDINP 12:32 → SUATTDRO 12:32 → 2S 14:30

== ENCOUNTER 2022-09-09 21:45 | Inpatient (IN) ==
--- NOTE | 2022-09-09 22:21 | XRay Report ---
SINGLE VIEW CHEST CLINICAL HISTORY: Atypical chest pain. FINDINGS: An AP, portable, upright chest radiograph is compared to study dated 09/05/2022 and correlat ed with chest CT dated 03/20/2022. The heart is enlarged. There is pulmonary vascular congestion. The lungs and pleural spaces are clear noting mild bibasilar atelectasis. No pneumothorax is seen. The sk eletal structures are osteopenic. The bony thorax is grossly intact. IMPRESSION: Cardiomegaly with pulmonary vascular congestion. ACT 112: Negative or not required by law. Electronically signed by: North Quintero M.D. 09/09/2022 10:20 PM
--- NOTE | 2022-09-09 23:02 | Emergency Department Note ---
History of Present Illness General Chief complaint: Chest Pain Time Seen by Provider: 09/09/22 22:38 History of Present Illness Maximum Pain Intensity: 10 This is a 36-year-old female with a complex past medical history that presents to the emergency department via private vehicle with complaints of "chest pain". Patient notes midsternal chest pain over the past week. She also notes a bdominal pain that began at the beginning of July 2022. Patient notes that she missed her dialysis session on Saturday therefore last dialysis session was Saturday. Patient notes the chest pain is in the center of her chest. It is constant. No history of MS or PE. Current pain 06/04. Patient also notes that since the beginning of July she has had some blood in the stool and is scheduled for a colonoscopy. Patient did take oxycodone she notes at 5:30 PM for pain. Home Medications Medication Instructions Recorded Confirmed Type carvedilol 3.125 mg tablet 3.125 mg PO BID 12/21/19 09/10/22 History hydroxyzine HCl 25 mg tablet 25 mg PO DAILY PRN Anxiety and 04/21/20 09/10/22 History before Dialysis calcium acetate(phosphat bind) 667 2,001 mg PO TIDM 06/22/20 09/10/22 History mg capsule albuterol sulfate 90 mcg/actuation 2 puff inhalation QID PRN 08/01/20 09/10/22 History aerosol inhaler Shortness Of Breath sertraline 100 mg tablet 150 mg PO QAM 08/02/20 09/10/22 History amlodipine 10 mg tablet 10 mg PO HS 08/10/20 09/10/22 History vitamin B complex-vitamin C-folic 1 tab PO QAM 08/10/20 09/10/22 History acid 0.8 mg tablet (Renal Vitamin) cinacalcet 30 mg tablet (Sensipar) 60 mg PO QDD 03/06/21 09/10/22 History lorazepam 0.5 mg tablet 0.5 mg PO DAILY PRN anxiety and 03/06/21 09/10/22 History before dialysis medroxyprogesterone 150 mg/mL 150 mg IM Q90D 03/06/21 09/10/22 History intramuscular suspension (Depo-Provera) gabapentin 400 mg capsule 400 mg PO AMHS 06/27/21 09/10/22 History (Neurontin) dicyclomine 10 mg capsule 10 mg PO QID PRN cyst 01/19/22 09/10/22 History doxepin 100 mg capsule 200 mg PO HS 01/19/22 09/10/22 History mometasone-formoterol HFA 200 2 puff inhalation BID 01/19/22 09/10/22 History mcg-5 mcg/actuation aerosol inhaler (Dulera) omeprazole 20 mg capsule,delayed 20 mg PO AMHS 01/19/22 09/10/22 History release diclofenac sodium 1 % topical gel 2 g EXT TID #100 grams 01/23/22 09/10/22 Rx (Voltaren Arthritis Pain) oxycodone-acetaminophen 5 mg-325 1 tab PO Q12H PRN severe pain #10 03/21/22 09/10/22 Rx mg tablet (Percocet) tabs Allergies Allergy/AdvReac Type Severity Reaction Status Date / Time cefaclor Allergy Intermediate Rash Verified 02/07/22 19:01 amoxicillin AdvReac Intermediate VOMITING Verified 02/07/22 19:01 clavulanic acid AdvReac Intermediate VOMITING Verified 02/07/22 19:01 Past Med/Surg History Medical History Anemia due to end stage renal disease Anxiety Anxiety and depression Asthma "BEEN A WHILE" SINCE USING LAST RESCUE INHALER AVF (arteriovenous fistula) bilt---currently using right for dialysis CKD (chronic kidney disease) stage V requiring chronic dialysis Depression Dialysis patient SATURDAY/SAT/SATURDAY AT [facility] DM2 (diabetes mellitus, type 2) DM2 (diabetes mellitus, type 2) ESRD (end stage renal disease) on dialysis Fistula right arm (currently being used) and left arm FSGS (focal segmental glomerulosclerosis) DX INITIALLY 2012 (CAUSING ESRD 2012) GERD (gastroesophageal reflux disease) History of abnormal cervical Papanicolaou smear HTN (hypertension) Peripheral neuropathy Prolonged QT interval Restless leg syndrome Surgical History H/O eye surgery LASER SURGERY LEFT H/O hernia repair ABDOMINAL WALL H/O knee surgery LEFT KNEE X 2 H/O tubal ligation H/O: X 2 History of cardiac cath 2016 NO STENTS History of cholecystectomy History of colonoscopy History of surgery (~09/09/20) perm cath replacement History of surgery left arm d/t clot in arm from AV fistula use @ [facility] History of tooth extraction three TOOTH Kidney transplant recipient 2014 AT [facility] S/P arteriovenous (AV) fistula creation right arm Family History Grandmother Hx of CABG Mother Diabetes Father Crohn's disease Grandfather (Maternal) Diabetes Uncle Diabetes Grandmother (Maternal) Family history of reaction to anesthesia difficulty waking with colonoscopy Social History Smoking Status: Former smoker Tobacco Type: Cigarettes Cigarettes Per Day: half a pack; Second Hand Exposure: Yes; Hx Alcohol Use: No Hx Substance Use: No Preferred Language: Macedonian Communication Ability: Effective [employer]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 Beliefs That Will Affect Care: None marital status: Single Current Living Situation: Family Current Living Situation Comment: Lives with fiance and kids How many Children do You have: 3 Feels Safe at Home: Yes Safety Concerns: Feels Safe At This Time Assistive Devices: None Review of Systems A total of 10 systems reviewed and were otherwise negative Physical Exam Vital Signs Vital Signs - 24 hr 09/09/22 21:45 09/09/22 23:09 09/10/22 01:09 Temperature 36.5 C Temperature Source Temporal Artery Scan Pulse Rate 95 H Pulse Rate [Apical] 88 85 Pulse Rhythm Regular Pulse Strength Normal Respiratory Rate 21 16 14 Respiratory Effort / Characteristics Non-Labored Spontaneous Non-Labored Spontaneous Respiratory Depth Normal Normal Respiratory Pattern Regular Regular Blood Pressure 197/110 H Blood Pressure [Right Arm] 170/92 H 182/106 H Blood Pressure Mean 139 Blood Pressure Mean [Right Arm] 118 131 Blood Pressure Position Sitting Pulse Oximetry 98 97 94 Oxygen Delivery Method Room Air Room Air Room Air Sepsis Recent Fever Within 48 Hours No Sepsis New/Unexplained Change in Mental Status N/A Sepsis Action Taken by Nursing No Action Required VITAL SIGNS - Vital signs and nursing notes were reviewed. Stable and afebrile. GENERAL -36-year-old female appearing her stated age who is in no acute distress but is tired appearing. Communicates well with provider and answers questions appropriately. SKIN - Without rashes. Evidence of recent venipuncture to the left upper extremity noted. HEAD - NC/AT. EYES - PERRL with EOMI bilaterally. Sclera anicteric. EARS - No deformities of external structures noted on gross examination bilaterally. NOSE - Midline and without cyanosis. No epistaxis or purulent drainage noted. MOUTH/OROPHARYNX - Without perioral cyanosis. NECK - Neck with FROM. No nuchal rigidity. LUNGS - Chest wall symmetric without accessory muscle use, intercostals retr actions, or central cyanosis. Normal vesicular breath sounds CTA B/L. No wheezes, rales, or rhonchi appreciated. CARDIAC - RRR ABDOMEN - Abdominal contour normal without pulsations or visible masses. No guarding or rigidity. EXTREMITIES - No clubbing or peripheral cyanosis. NEUROLOGIC - Cranial nerves II through XII grossly intact. PSYCH - A&O, and cooperates fully with examiner. Pt is very pleasant and interacts well with examiner. Course Administered Medications Oxycodone/Acetaminophen (Oxycodone/Acetaminophen 5mg/325mg Tab) 1 tab PO BID PRN PRN Reason: Pain Stop: 09/24/22 00:55 Last Admin: 09/10/22 02:13 Dose: 1 tab Documented By: ROSITA Discontinued Medications Carvedilol (Carvedilol 3.125 Mg Tab) 3.125 mg PO NOW STA Stop: 09/10/22 00:58 Last Admin: 09/10/22 01:25 Dose: 3.125 mg Documented By: ROSITA Calcium Gluconate 1,000 mg/ (Dextrose) 60 mls @ 240 mls/hr IV ONCE STA Stop: 09/09/22 23:38 Last Infusion: 09/10/22 00:15 Dose: 0 mls/hr Documented By: Admin: 09/10/22 00:00 Dose: 240 mls/hr Documented By: ROSITA Morphine Sulfate (Morphine Sulfate 2 Mg/Ml Carp) 2 mg IV NOW STA Stop: 09/09/22 23:26 Last Admin: 09/10/22 00:00 Dose: 2 mg Documented By: ROSITA Sodium Bicarbonate (Sodium Bicarb 8.4% Inj 50 Meq/50 Ml Syr) 50 meq IV NOW STA Stop: 09/10/22 00:12 Last Admin: 09/10/22 00:33 Dose: 50 meq Documented By: ROSITA Medical Decision Making Laboratory Data 09/09/22 22:31 09/09/22 22:31 Lab Results 09/09/22 09/09/22 09/09/22 Range/Units 22:31 22:31 22:31 WBC 7.93 (4.8-10.8) K/ul RBC 2.36 L (3.93-5.22) M/uL Hgb 7.9 L (12.0-16.0) g/dl Hct 23.9 L (34.1-44.9) % MCV 101.3 H (80.0-100.0) fL MCH 33.5 (25.0-34.0) pg MCHC 33.1 (32.0-36.0) g/dL RDW Std Deviation 48.6 H (36.4-46.3) fL RDW Coeff of Laith 13.2 (11.5-14.5) % Plt Count 114 L (130-400) K/uL MPV 10.1 (9.4-12.3) fL Immature Gran % (Auto) 0.3 % Neut % (Auto) 83.2 % Lymph % (Auto) 8.3 % [place] % (Auto) 5.4 % Eos % (Auto) 2.4 % Baso % (Auto) 0.4 % Neut # (Auto) 6.60 H (1.4-6.5) K/uL Lymph # (Auto) 0.66 L (1.2-3.4) K/uL [place] # (Auto) 0.43 (0.24-0.82) K/uL Eos # (Auto) 0.19 (0-0.50) K/uL Baso # (Auto) 0.03 (0-0.2) K/uL Immature Gran # (Auto) 0.02 (0.00-0.02) K/uL Ovalocytes 1+ PT Cancelled INR Cancelled APTT Cancelled PTT Ratio Cancelled Sodium 135 L (136-145) mmol/L Potassium 5.5 H (3.5-5.1) mmol/L Chloride 98 (98-107) mmol/L Carbon Dioxide 23 (21-32) mmol/L Anion Gap 14 H (3-11) BUN 89 H (6-23) mg/dl Creatinine 12.73 H* (0.6-1.2) mg/dl Est Cr Clr Drug Dosing 7.4 ml/min Est GFR ( Amer) 3.9 ml/min Est GFR (Non-Af Amer) 3.3 ml/min BUN/Creatinine Ratio 7.0 L (10-20) Glucose 135 H (70-99(Fasting)) mg/dl Calcium 8.4 L (8.5-10.1) mg/dl Magnesium 2.7 H (1.7-2.4) mg/dl Total Bilirubin 0.4 (0.2-1.0) mg/dl AST 23 (13-39) U/L ALT 31 (7-52) U/L Alkaline Phosphatase 69 (34-104) U/L Troponin I High Sens 43.9 H (0-14) pg/ml Total Protein 6.2 (6.0-8.3) gm/dl Albumin 3.7 (3.4-5.0) gm/dl Globulin 2.5 (2.5-4.0) gm/dl Albumin/Globulin Ratio 1.5 (0.9-2) HCG, Qual (Negative) SARS-CoV-2 (PCR) (Negative) Influenza Type A (PCR) (Neg) Influenza Type B (PCR) (Neg) RSV (RT-PCR) (Neg) 09/09/22 09/09/22 Range/Units 22:31 23:12 WBC (4.8-10.8) K/ul RBC (3.93-5.22) M/uL Hgb (12.0-16.0) g/dl Hct (34.1-44.9) % MCV (80.0-100.0) fL MCH (25.0-34.0) pg MCHC (32.0-36.0) g/dL RDW Std Deviation (36.4-46.3) fL RDW Coeff of Laith (11.5-14.5) % Plt Count (130-400) K/uL MPV (9.4-12.3) fL Immature Gran % (Auto) % Neut % (Auto) % Lymph % (Auto) % [place] % (Auto) % Eos % (Auto) % Baso % (Auto) % Neut # (Auto) (1.4-6.5) K/uL Lymph # (Auto) (1.2-3.4) K/uL [place] # (Auto) (0.24-0.82) K/uL Eos # (Auto) (0-0.50) K/uL Baso # (Auto) (0-0.2) K/uL Immature Gran # (Auto) (0.00-0.02) K/uL Ovalocytes PT INR APTT PTT Ratio Sodium (136-145) mmol/L Potassium (3.5-5.1) mmol/L Chloride (98-107) mmol/L Carbon Dioxide (21-32) mmol/L Anion Gap (3-11) BUN (6-23) mg/dl Creatinine (0.6-1.2) mg/dl Est Cr Clr Drug Dosing ml/min Est GFR ( Amer) ml/min Est GFR (Non-Af Amer) ml/min BUN/Creatinine Ratio (10-20) Glucose (70-99(Fasting)) mg/dl Calcium (8.5-10.1) mg/dl Magnesium (1.7-2.4) mg/dl Total Bilirubin (0.2-1.0) mg/dl AST (13-39) U/L ALT (7-52) U/L Alkaline Phosphatase (34-104) U/L Troponin I High Sens (0-14) pg/ml Total Protein (6.0-8.3) gm/dl Albumin (3.4-5.0) gm/dl Globulin (2.5-4.0) gm/dl Albumin/Globulin Ratio (0.9-2) HCG, Qual Negative (Negative) SARS-CoV-2 (PCR) NEGATIVE (Negative) Influenza Type A (PCR) Negative (Neg) Influenza Type B (PCR) Negative (Neg) RSV (RT-PCR) Negative (Neg) Imaging Data Radiologist's Impression: Chest X-Ray 09/09/22 21:49 SINGLE VIEW CHEST CLINICAL HISTORY: Atypical chest pain. FINDINGS: An AP, portable, upright chest radiograph is compared to study dated 09/05/2022 and correlated with chest CT dated 03/20/2022. The heart is enlarged. There is pulmonary vascular congestion. The lungs and pleural spaces are clear noting mild bibasilar atelectasis. No pneumothorax is seen. The skeletal structures are osteopenic. The bony thorax is grossly intact. IMPRESSION: Cardiomegaly with pulmonary vascular congestion. ACT 112: Negative or not required by law. Electronically signed by: North Quintero M.D. 09/09/2022 10:20 PM Abdomen/Pelvis CT 09/10/22 00:52 CT SCAN OF THE ABDOMEN AND PELVIS WITHOUT IV CONTRAST CLINICAL HISTORY: Generalized abdominal pain. Lower GI bleeding. COMPARISON STUDY: Abdominal CT dated 09/02/2022. TECHNIQUE: CT scan of the abdomen and pelvis is performed from the lung bases to the proximal femora. Images are reviewed in the axial, sagittal, and coronal planes. IV contrast was not administered for this examination. A dose lowering technique was utilized adhering to the principles of ALARA. CT DOSE: 1963.21 mGy.cm FINDINGS: Lung bases: The heart is enlarged and without pericardial effusion. The coronary arteries are densely calcified. There is diminished attenuation of the cardiac blood pool as compared to the myocardium suggesting anemia. There is a tiny hiatal hernia. Intralobular septal thickening is noted at the lung bases. There is dependent atelectasis. Trace pleural effusions are observed. Liver: The unenhanced liver is enlarged, measuring 21.0 cm in length. The liver is otherwise normal in contour and attenuation. There is mild central intrahepatic biliary ductal dilatation. Gallbladder: Surgically absent and clips in the gallbladder fossa. There is infiltration and fluid within the hepatic hilum in the gallbladder fossa. This is new from previous. Spleen: Normal in size and attenuation. Pancreas: The unenhanced pancreas is grossly unremarkable. Adrenal glands: Unremarkable. Kidneys: The unenhanced [place] kidneys are markedly atrophic and without hydronephrosis. Bilateral cysts measure up to 2.5 cm. There are renal vascular calcifications. Abdominal vasculature: The abdominal aorta is normal in course and caliber noting moderate atherosclerotic calcification. Bowel: There is mild colonic diverticulosis without CT evidence of acute diverticulitis. Moderate fecal retention is noted throughout the colon. A hyperdense perirectal nodule seen on image #371 is unchanged measuring up to 1.8 cm. The appendix is well-visualized and normal. There is mild wall thickening of the proximal duodenum with surrounding infiltration and fluid. Peritoneum: There is trace perihepatic ascites. No intraperitoneal free air is seen. A midline surgical scar is noted. There is a small fat-containing umbilical hernia. Lymphadenopathy: None. Pelvic viscera: The bladder is decompressed and could not be evaluated. Uterine fibroids are suspected. Ovarian follicles are noted. A densely calcified renal transplant is again seen in the right lower quadrant. There is trace free fluid in the pelvis. Skeletal structures: No lytic or blastic lesions are seen. Sclerotic change is noted in the sacroiliac joints. Soft tissues: There is mild body wall edema. IMPRESSION: 1. There is mild wall thickening of the duodenum with surrounding infiltration and fluid. Similar fluid and infiltration is seen within the hepatic hilum and gallbladder fossa. These findings are of indeterminate significance and are new from 09/02/2022. This could be related to fluid overload/ascites. Correlate with clinical and laboratory findings for evidence of possible duodenitis, ulcer disease, groove pancreatitis, or hepatobiliary pathology. 2. Status post cholecystectomy. Mild intrahepatic biliary ductal dilatation is similar to previous. 3. There is trace perihepatic and pelvic ascites. This is new from previous. 4. Hepatomegaly. 5. Cardiomegaly with evidence of congestive failure trace pleural effusions. 6. The [place] kidneys are markedly atrophic and a calcified renal transplant is again seen in the right pelvis. 7. Additional findings as above. ACT 112: Negative or not required by law. Electronically signed by: North Quintero M.D. 09/10/2022 1:39 AM MDM Narrative Patient was seen and evaluated as above in room C02. Review was performed of nursing notes and vital signs. I did review pertinent previous visits and patient history. After obtaining a thorough history and physical examination the above work up was performed. Patient presents to us today for evaluation of chest pain. Patient clinically tired appearing. Her vital signs are stable. Options of care were discussed with the patient. When I evaluated the patient she was currently being evaluated by the IV team to obtain IV access. Patient appeared to be in no acute distress. She was hypertensive but her vital signs were overall stable. Labs reveal no leukocytosis. There is anemia noted with hemoglobin of 7.9 that is about one-point decreased compared to previous from a few days ago. Patient does note that since early July she has had some blood in her stool intermittently. Metabolic panel reveals hyponatremia 135. Hyperkalemia 5.5. Creatinine 12.73 and BUN 89 consistent with need for dialysis. Hypomagnesemia 2.7. Mild hypocalcemia 8.4. Mild hyperglycemia 135. Troponin elevated 43.9 and similar to previous. However, patient's EKG is not c onsistent with acute ischemia. Chest x-ray reveals cardiomegaly with pulmonary vascular congestion. Low suspicion for PE. COVID, flu, RSV testing negative. EKG reveals normal sinus rhythm at a rate of 92 bpm. QTc 484. QRS 96. This was compared to EKG of September 05 and no significant change was found. There is no ST elevation. Case was discussed with the attending physician. With the patient having hyperkalemia and associated with her clinical presentation today it was felt reasonable provide a dose of calcium gluconate. This was ordered. I also ordered her 2 mg of morphine IV for pain. At this time I do believe the patient would benefit from inpatient management. The patient case was discussed with the hospitalist, Dr. Cunningham. Please refer to further documentation regarding her stay. GCS: 15 In the evaluation and treatment of this patient the following differential diagnoses were entertained: Dissection, MS, PE, pericarditis, costochondritis, myocarditis, pneumothorax, pneumonia, fluid overload, acute intra-abdominal process, GI bleed, among others. Impression & Plan Chest pain, Elevated troponin, Hyperkalemia, Anemia Discharge Plan Visit Data Chief Complaint: Chest Pain ED Provider: Harsh Stapleton ED Midlevel Provider: Geoff Jennings Discharge Problem: Chest pain, Elevated troponin, Hyperkalemia, Anemia Patient Disposition: Admitted As Inpatient Condition: Fair Discharge Instructions Interventions: ED Discharge Assessment Last Done: 09/10/22 02:22 Forms Stand Alone Forms: My [facility] Prescriptions Prescriptions: No Action calcium acetate(phosphat bind) 667 mg capsule 2,001 mg PO TIDM Rx Instructions: 3 tabs with meals sertraline 100 mg tablet 150 mg PO QAM Rx Instructions: 1 & 1/2 TABLET DOSE carvedilol 3.125 mg tablet 3.125 mg PO BID hydroxyzine HCl 25 mg tablet 25 mg PO DAILY PRN (Reason: Anxiety and before Dialysis) albuterol sulfate 90 mcg/actuation HFA aerosol inhaler 2 puff INHALATION QID PRN (Reason: Shortness Of Breath) amlodipine 10 mg Tablet 10 mg PO HS Renal Vitamin 0.8 mg Tablet 1 tab PO QAM lorazepam 0.5 mg tablet 0.5 mg PO DAILY PRN (Reason: anxiety and before dialysis) medroxyprogesterone [Depo-Provera] 150 mg/mL suspension 150 mg IM Q90D cinacalcet [Sensipar] 30 mg Tablet 60 mg PO QDD Rx Instructions: Takes with evening meal gabapentin [Neurontin] 400 mg capsule 400 mg PO AMHS oxycodone-acetaminophen [Percocet] 5-325 mg Tablet 1 tab PO Q12H PRN (Reason: severe pain) Qty: 10 0RF dicyclomine 10 mg capsule 10 mg PO QID PRN (Reason: cyst) doxepin 100 mg capsule 200 mg PO HS omeprazole 20 mg capsule,delayed release(DR/EC) 20 mg PO AMHS Dulera 200-5 mcg/actuation HFA aerosol inhaler 2 puff INHALATION BID diclofenac sodium [Voltaren Arthritis Pain] 1 % Gel 2 g EXT TID Qty: 100 0RF Rx Instructions: Left Shoulder Referrals Referrals: Adolph Aldridge MD [Primary Care Provider] -
[2022-09-09 23:14] LABS: Hematocrit (blood only) 23.9 % (34.1-44.9); Hemoglobin 7.9 g/dl (12.0-16.0); Mean Corpuscular Hemoglobin 33.5 pg (25.0-34.0); Mean Corpuscular Hgb Conc 33.1 g/dL (32.0-36.0); Mean Corpuscular Volume 101.3 fL (80.0-100.0); Mean Platelet Volume 10.1 fL (9.4-12.3); Platelet Count 114 K/uL (130-400); RDW Coefficient of Variation 13.2 % (11.5-14.5); RDW Standard Deviation 48.6 fL (36.4-46.3); Red Blood Count 2.36 M/uL (3.93-5.22); White Blood Count 7.93 K/ul (4.8-10.8)
[2022-09-09 23:15] LABS: Albumin Globulin Ratio 1.5 (0.9-2); Albumin Level 3.7 gm/dl (3.4-5.0); Bilirubin,Total 0.4 mg/dl (0.2-1.0); Calcium 8.4 mg/dl (8.5-10.1); Creatinine Clr Calc Pharmacy 7.4 ml/min; Est GFR (African American) 3.9 ml/min; Est GFR (Non-African American) 3.3 ml/min; Globulin 2.5 gm/dl (2.5-4.0); Potassium 5.5 mmol/L (3.5-5.1); Total Protein 6.2 gm/dl (6.0-8.3); Troponin I High Sensitivity 43.9 pg/ml (0-14)
[2022-09-09] MEDS ORDERED: CALCIUM GLUCONATE 10% 1,000 MG in DEXTROSE 5% 50 ML IV STA (23:24)
[2022-09-09] MEDS ORDERED: STAT IV STA (23:24)
[2022-09-09] MEDS ORDERED: MoRPHine SULFATE 2 MG/ML CARP IV STA (23:25)
[2022-09-09 23:48] LABS: Basophils # (auto) 0.03 K/uL (0-0.2); Basophils % (auto) 0.4 %; Eosinophils # (auto) 0.19 K/uL (0-0.50); Eosinophils % (auto) 2.4 %; Immature Granulocytes # (auto) 0.02 K/uL (0.00-0.02); Immature Granulocytes % (auto) 0.3 %; Lymphocytes # (auto) 0.66 K/uL (1.2-3.4); Lymphocytes % (auto) 8.3 %; Monocytes # (auto) 0.43 K/uL (0.24-0.82); Monocytes % (auto) 5.4 %; Neutrophils % (auto) 83.2 %; Ovalocytes 1+
[2022-09-10] MEDS ORDERED: SODIUM BICARB 8.4% INJ 50 MEQ/50 ML SYR IV STA (00:11)
[2022-09-10 00:18] LABS: Influenza A virus by PCR Negative (Neg); Influenza B virus by PCR Negative (Neg); RSV by PCR Negative (Neg); SARS CoV2 RNA(COVID-19) Ceph NEGATIVE (Negative)
--- NOTE | 2022-09-10 00:50 | History & Physical Report ---
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 difficile troponin elevation secondary to uncontrolled BP , kidney dysfunction Hyperkalemia, AGMA secondary to ESRD, missed dialysis left acromioclavicular osteoarthritis, elective surgery contemplated outpatient DM2, diet controlled, well-controlled as of recent hemoglobin A1c of 5.9 last July 2022 mood disorder, at baseline Past tobacco abuse PCU Facilitate home BP meds and titrate as needed Bicarb for hyperkalemia with concomitant metabolic acidosis Nephrology consult RE dialysis management Trend troponin Follow H&H, transfuse PRBC if hemoglobin less than 7 and or for symptomatic anemia Stool C. difficile Clear liquids for now GI consult Re: L GIB judicious narcotic use given possible secondary gain given frequent ER visits/noncompliance with home regimen. ISS BG goal 110-140, carb count coverage DVT prophylaxis. SCDs RE GI bleed causing significant anemia Full code Text document was generated using [employer] voice recognition software. It may contain grammatical or spelling errors. Kindly contact undersigned for clarification of any documentation item in question. History of Present Illness Chief Complaint: Chest pain, worsening abdominal pain/bloody diarrhea Primary Care Provider: Adolph Aldridge MD History obtained from patient and records. Medical history significant for hypertension, ESRD on HD, history of FSGS status post failed renal transplantation, DM2, diet controlled, mood disorder, history of umbilical hernia, colonic polyps/diverticulosis, chronic anemia (baseline hemoglobin of 8-9), history of migraine, left acromioclavicular osteoarthritis, medical noncompliance, past tobacco abuse. Multiple ER visits and hospital confinements since 2017. Last confinement February 2022 for chest pain likely musculoskeletal. 1 month history of intermittent bloody diarrhea with abdominal cramping. Increasing fatigue. Not sure about recent antibiotic medications. 2 ER visits last week. Outpatient colonoscopy recommended by PCP on outpatient visit 4 days ago. Transient substernal pain 2 days ago with some shortness of breath. Patient missed Saturday dialysis session because she fell asleep. Worsening abdominal discomfort and rectal bleeding as per patient. No melena, no hematemesis. No fever, no chills. Patient consulted ER for evaluation. SBP 190s upon arrival at the ER. Medical History as above 2018 colonoscopy showed diverticulosis and polyps Surgical History : Vascular procedures, section, cystoscopy, knee surgery, eye surgery, BTL, renal biopsy, kidney transplant Family History : SLE, Crohn's disease, high blood pressure, depression Personal/Social history past tobacco abuse, no EtOH intake, disabled Allergies Allergy/AdvReac Type Severity Reaction Status Date / Time cefaclor Allergy Intermediate Rash Verified 02/07/22 19:01 amoxicillin AdvReac Intermediate VOMITING Verified 02/07/22 19:01 clavulanic acid AdvReac Intermediate VOMITING Verified 02/07/22 19:01 Home Medications Medication Instructions Recorded Confirmed Type carvedilol 3.125 mg tablet 3.125 mg PO BID 12/21/19 09/10/22 History hydroxyzine HCl 25 mg tablet 25 mg PO DAILY PRN Anxiety and 04/21/20 09/10/22 History before Dialysis calcium acetate(phosphat bind) 667 2,001 mg PO TIDM 06/22/20 09/10/22 History mg capsule albuterol sulfate 90 mcg/actuation 2 puff inhalation QID PRN 08/01/20 09/10/22 History aerosol inhaler Shortness Of Breath sertraline 100 mg tablet 150 mg PO QAM 08/02/20 09/10/22 History amlodipine 10 mg tablet 10 mg PO HS 08/10/20 09/10/22 History vitamin B complex-vitamin C-folic 1 tab PO QAM 08/10/20 09/10/22 History acid 0.8 mg tablet (Renal Vitamin) cinacalcet 30 mg tablet (Sensipar) 60 mg PO QDD 03/06/21 09/10/22 History lorazepam 0.5 mg tablet 0.5 mg PO DAILY PRN anxiety and 03/06/21 09/10/22 History before dialysis medroxyprogesterone 150 mg/mL 150 mg IM Q90D 03/06/21 09/10/22 History intramuscular suspension (Depo-Provera) gabapentin 400 mg capsule 400 mg PO AMHS 06/27/21 09/10/22 History (Neurontin) dicyclomine 10 mg capsule 10 mg PO QID PRN cyst 01/19/22 09/10/22 History doxepin 100 mg capsule 200 mg PO HS 01/19/22 09/10/22 History mometasone-formoterol HFA 200 2 puff inhalation BID 01/19/22 09/10/22 History mcg-5 mcg/actuation aerosol inhaler (Dulera) omeprazole 20 mg capsule,delayed 20 mg PO AMHS 01/19/22 09/10/22 History release diclofenac sodium 1 % topical gel 2 g EXT TID #100 grams 01/23/22 09/10/22 Rx (Voltaren Arthritis Pain) oxycodone-acetaminophen 5 mg-325 1 tab PO Q12H PRN severe pain #10 03/21/22 09/10/22 Rx mg tablet (Percocet) tabs Past Med/Surg History Medical History Anemia due to end stage renal disease Anxiety Anxiety and depression Asthma "BEEN A WHILE" SINCE USING LAST RESCUE INHALER AVF (arteriovenous fistula) bilt---currently using right for dialysis CKD (chronic kidney disease) stage V requiring chronic dialysis Depression Dialysis patient SATURDAY/SAT/SATURDAY AT [facility] DM2 (diabetes mellitus, type 2) DM2 (diabetes mellitus, type 2) ESRD (end stage renal disease) on dialysis Fistula right arm (currently being used) and left arm FSGS (focal segmental glomerulosclerosis) DX INITIALLY 2012 (CAUSING ESRD 2012) GERD (gastroesophageal reflux disease) History of abnormal cervical Papanicolaou smear HTN (hypertension) Peripheral neuropathy Prolonged QT interval Restless leg syndrome Surgical History H/O eye surgery LASER SURGERY LEFT H/O hernia repair ABDOMINAL WALL H/O knee surgery LEFT KNEE X 2 H/O tubal ligation H/O: X 2 History of cardiac cath 2016 NO STENTS History of cholecystectomy History of colonoscopy History of surgery (~09/09/20) perm cath replacement History of surgery left arm d/t clot in arm from AV fistula use @ [facility] History of tooth extraction three TOOTH Kidney transplant recipient 2013 AT [facility] S/P arteriovenous (AV) fistula creation right arm Family History Grandmother Hx of CABG Mother Diabetes Father Crohn's disease Grandfather (Maternal) Diabetes Uncle Diabetes Grandmother (Maternal) Family history of reaction to anesthesia difficulty waking with colonoscopy Social History Smoking Status: Former smoker Tobacco Type: Cigarettes Cigarettes Per Day: half a pack; Second Hand Exposure: Yes; Hx Alcohol Use: No Hx Substance Use: No Preferred Language: Kinyarwanda Communication Ability: Effective Oil Deliverer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 Beliefs That Will Affect Care: None marital status: Single Current Living Situation: Family Current Living Situation Comment: Lives with fiance and kids How many Children do You have: 3 Feels Safe at Home: Yes Safety Concerns: Feels Safe At This Time Assistive Devices: None Review of Systems Review of Systems: As per HPI, all other systems reviewed and negative Physical Exam Physical Exam: GENERAL: uncomfortable, morbidly obese, looks older than stated age, lethargic, no respiratory distress SKIN: Pallor, warm HEENT: Pale palpebral conjunctivae, no ptosis, dry buccal mucosa NECK : Supple, short neck, no tenderness CHEST : Decreased breath sounds, no tenderness HEART : RRR, no obvious murmurs ABDOMEN: Some distention, hypogastric tenderness EXTREMITIES : Minimal LE swelling, no LE tenderness, upper extremity AV grafts, left shoulder tenderness NEUROLOGIC : Lethargic, no facial asymmetry, no other gross focality Results & Data Results & Data ([facility]) Vital Signs (Past 12 Hours) Vital Signs Temp Pulse Pulse Resp BP BP Pulse Ox 09/09/22 23:09 88 16 170/92 H 97 09/09/22 21:45 36.5 C 95 H 21 197/110 H 98 O2 Del Method 09/09/22 23:09 Room Air 09/09/22 21:45 Room Air Laboratory Results Laboratory Results WBC 7.93 K/ul (4.8-10.8) 09/09/22 22:31 RBC 2.36 M/uL (3.93-5.22) L 09/09/22 22:31 Hgb 7.9 g/dl (12.0-16.0) L 09/09/22 22:31 Hct 23.9 % (34.1-44.9) L 09/09/22 22:31 MCV 101.3 fL (80.0-100.0) H 09/09/22 22:31 MCH 33.5 pg (25.0-34.0) 09/09/22: MCHC 33.1 g/dL (32.0-36.0) 09/09/22: RDW Std Deviation 48.6 fL (36.4-46.3) H 09/09/22: RDW Coeff of Laith 13.2 % (11.5-14.5) 09/09/22: Plt Count 114 K/uL (130-400) L 09/09/22: MPV 10.1 fL (9.4-12.3) 09/09/22: Immature Gran % (Auto) 0.3 % 09/09/22: Neut % (Auto) 83.2 % 09/09/22: Lymph % (Auto) 8.3 % 09/09/22: [place] % (Auto) 5.4 % 09/09/22: Eos % (Auto) 2.4 % 09/09/22: Baso % (Auto) 0.4 % 09/09/22: Neut # (Auto) 6.60 K/uL (1.4-6.5) H 09/09/22: Lymph # (Auto) 0.66 K/uL (1.2-3.4) L 09/09/22 22: [place] # (Auto) 0.43 K/uL (0.24-0.82) 09/09/22: Eos # (Auto) 0.19 K/uL (0-0.50) 09/09/22: Baso # (Auto) 0.03 K/uL (0-0.2) 09/09/22: Immature Gran # (Auto) 0.02 K/uL (0.00-0.02) 09/09/22: Ovalocytes 1+ 09/09/22: PT Cancelled 09/09/22 22: INR Cancelled 09/09/22 22: APTT Cancelled 09/09/22 22: PTT Ratio Cancelled 09/09/22 22: Sodium 135 mmol/L (136-145) L 09/09/22: Potassium 5.5 mmol/L (3.5-5.1) H 09/09/22 22:31 Chloride 98 mmol/L (98-107) 09/09/22 22: Carbon Dioxide 23 mmol/L (21-32) 09/09/22 22: Anion Gap 14 (3-11) H 09/09/22 22:31 BUN 89 mg/dl (6-23) H 09/09/22 22: Creatinine 12.73 mg/dl (0.6-1.2) H* 09/09/22 22:31 Est Cr Clr Drug Dosing 7.4 ml/min 09/09/22 22:31 Est GFR ( Amer) 3.9 ml/min 09/09/22 22: Est GFR (Non-Af Amer) 3.3 ml/min 09/09/22 22:31 BUN/Creatinine Ratio 7.0 (10-20) L 09/09/22 22:31 Glucose 135 mg/dl (70-99(Fasting)) H 09/09/22 22: Calcium 8.4 mg/dl (8.5-10.1) L 09/09/22 22: Total Bilirubin 0.4 mg/dl (0.2-1.0) 09/09/22 22: AST 23 U/L (13-39) 09/09/22 22: ALT 31 U/L (7-52) 09/09/22 22:31 Alkaline Phosphatase 69 U/L (34-104) 09/09/22 22:31 Troponin I High Sens 43.9 pg/ml (0-14) H 09/09/22 22:31 Total Protein 6.2 gm/dl (6.0-8.3) 09/09/22 22: Albumin 3.7 gm/dl (3.4-5.0) 09/09/22 22: Globulin 2.5 gm/dl (2.5-4.0) 09/09/22 22: Albumin/Globulin Ratio 1.5 (0.9-2) 09/09/22 22:31 SARS-CoV-2 (PCR) NEGATIVE (Negative) 09/09/22 23:12 Influenza Type A (PCR) Negative (Neg) 09/09/22 23:12 Influenza Type B (PCR) Negative (Neg) 09/09/22 23:12 RSV (RT-PCR) Negative (Neg) 09/09/22 23:12 Impressions Chest X-Ray 09/09/22 21:49 SINGLE VIEW CHEST CLINICAL HISTORY: Atypical chest pain. FINDINGS: An AP, portable, upright chest radiograph is compared to study dated 09/05/2022 and correlated with chest CT dated 03/20/2022. The heart is enlarged. There is pulmonary vascular congestion. The lungs and pleural spaces are clear noting mild bibasilar atelectasis. No pneumothorax is seen. The skeletal structures are osteopenic. The bony thorax is grossly intact. IMPRESSION: Cardiomegaly with pulmonary vascular congestion. ACT 112: Negative or not required by law. Electronically signed by: North Quintero M.D. 09/09/2022 10:[address] abdomen pelvis: 1. There is mild wall thickening of the duodenum with surrounding infiltration and fluid. Similar fluid and infiltration is seen within the hepatic hilum and gallbladder fossa. These findings are of indeterminate significance and are new from 09/02/2022. This could be related to fluid overload/ascites. Correlate with clinical and laboratory findings for evidence of possible duodenitis, ulcer disease, groove pancreatitis, or hepatobiliary pathology. 2. Status post cholecystectomy. Mild intrahepatic biliary ductal dilatation is similar to previous. 3. There is trace perihepatic and pelvic ascites. This is new from previous. 4. Hepatomegaly. 5. Cardiomegaly with evidence of congestive failure trace pleural effusions. 6. The [place] kidneys are markedly atrophic and a calcified renal transplant is again seen in the right pelvis. Diagnostic Findings EKG as per my interpretation : Rate 90, NSR, normal axis, no ischemia
[2022-09-10] MEDS ORDERED: PROMETHAZINE HCL 12.5 MG in SODIUM CHLORIDE 0.9% 50 ML IV PRN (00:56)
[2022-09-10] MEDS ORDERED: ACETAMINOPHEN 325 MG TAB PO PRN (00:56)
[2022-09-10] MEDS ORDERED: carvediloL 3.125 MG TAB PO STA (00:57)
[2022-09-10 01:02] LABS: Magnesium 2.7 mg/dl (1.7-2.4)
[2022-09-10 01:20] LABS: Pregnancy Test, Serum Negative (Negative)
--- NOTE | 2022-09-10 01:40 | CT Scan Report ---
CT SCAN OF THE ABDOMEN AND PELVIS WITHOUT IV CONTRAST CLINICAL HISTORY: Generalized abdominal pain. Lower GI bleeding. COMPARISON STUDY: Abdominal CT dated 09/02/2022. TECHNIQUE: CT scan of the abdomen and pelvis is performed from the lung bases to the proximal femora. Images are reviewed in the axial, sagittal, and coronal planes. IV contrast was not administered for this examination. A dose lowering technique was utilized adhering to the principles of ALARA. CT DOSE: 1963.21 mGy.cm FINDINGS: Lung bases: The heart is enlarged and without pericardial effusion. The coronary arteries are densely calcified. There is diminished attenuation of the cardiac blood pool as compared to the myocardium s uggesting anemia. There is a tiny hiatal hernia. Intralobular septal thickening is noted at the lung bases. There is dependent atelectasis. Trace pleural effusions are observed. Liver: The unenhanced liver is enlarged, measuring 21.0 cm in length. The liver is otherwise normal i n contour and attenuation. There is mild central intrahepatic biliary ductal dilatation. Gallbladder: Surgically absent and clips in the gallbladder fossa. There is infiltration and fluid wi thin the hepatic hilum in the gallbladder fossa. This is new from previous. Spleen: Normal in size and attenuation. Pancreas: The unenhanced pancreas is grossly unremarkable. Adrenal glands: Unremarkable. Kidneys: The unenhanced [place] kidneys are markedly atrophic and without hydronephrosis. Bilateral cy sts measure up to 2.5 cm. There are renal vascular calcifications. Abdominal vasculature: The abdominal aorta is normal in course and caliber noting moderate atheroscle rotic calcification. Bowel: There is mild colonic diverticulosis without CT evidence of acute diverticulitis. Moderate fec al retention is noted throughout the colon. A hyperdense perirectal nodule seen on image #[id number] is unch anged measuring up to 1.8 cm. The appendix is well-visualized and normal. There is mild wall thicken ing of the proximal duodenum with surrounding infiltration and fluid. Peritoneum: There is trace perihepatic ascites. No intraperitoneal free air is seen. A midline surgic al scar is noted. There is a small fat-containing umbilical hernia. Lymphadenopathy: None. Pelvic viscera: The bladder is decompressed and could not be evaluated. Uterine fibroids are suspecte d. Ovarian follicles are noted. A densely calcified renal transplant is again seen in the right lower quadrant. There is trace free fluid in the pelvis. Skeletal structures: No lytic or blastic lesions are seen. Sclerotic change is noted in the sacroilia c joints. Soft tissues: There is mild body wall edema. IMPRESSION: 1. There is mild wall thickening of the duodenum with surrounding infiltration and fluid. Similar flu id and infiltration is seen within the hepatic hilum and gallbladder fossa. These findings are of ind eterminate significance and are new from 09/02/2022. This could be related to fluid overload/ascites. C orrelate with clinical and laboratory findings for evidence of possible duodenitis, ulcer disease, gr oove pancreatitis, or hepatobiliary pathology. 2. Status post cholecystectomy. Mild intrahepatic biliary ductal dilatation is similar to previous. 3. There is trace perihepatic and pelvic ascites. This is new from previous. 4. Hepatomegaly. 5. Cardiomegaly with evidence of congestive failure trace pleural effusions. 6. The [place] kidneys are markedly atrophic and a calcified renal transplant is again seen in the rig ht pelvis. 7. Additional findings as above. ACT 112: Negative or not required by law. Electronically signed by: North Quintero M.D. 09/10/2022 1:39 AM
[2022-09-10] MEDS: oxyCODONE/ACETAMINOPHEN 5mg/325mg TAB PO PRN ×2 (02:13→20:41)
[2022-09-10] MEDS ORDERED: CARBOHYDRATES FOR HYPOGLYCEMIA PO PRN (03:08)
[2022-09-10] MEDS ORDERED: NITROGLYCERIN SL 0.4 MG/TAB TAB SL PRN (03:08)
[2022-09-10] MEDS ORDERED: GLUCAGON FOR INJ 1 MG VIAL SQ PRN (03:08)
[2022-09-10] MEDS ORDERED: GLUCOSE 10 TAB/TUBE PO PRN (03:08)
[2022-09-10] MEDS ORDERED: DEXTROSE 50% 50 ML SYRINGE IV PRN (03:08)
[2022-09-10] MEDS ORDERED: GLUCOSE 40% GEL 15 GM TUBE PO PRN (03:08)
[2022-09-10] MEDS: INSULIN ASPART PER UNIT SC SCH ×5 (03:43→21:30)
[2022-09-10] MEDS ORDERED: hydrALAZINE HCL 20 MG/ML VIAL IV STA (03:52)
[2022-09-10] MEDS: amLODIPine BESYLATE 5 MG TAB PO SCH (05:52)
--- NOTE | 2022-09-10 06:18 | Communication Note ---
Date of Service: September 10, 2022
[2022-09-10 06:48] LABS: Basophils # (auto) 0.02 K/uL (0-0.2); Basophils % (auto) 0.3 %; Eosinophils # (auto) 0.19 K/uL (0-0.50); Eosinophils % (auto) 2.5 %; Hematocrit (blood only) 24.6 % (34.1-44.9); Hemoglobin 8.1 g/dl (12.0-16.0); Immature Granulocytes # (auto) 0.02 K/uL (0.00-0.02); Immature Granulocytes % (auto) 0.3 %; Lymphocytes # (auto) 1.12 K/uL (1.2-3.4); Lymphocytes % (auto) 14.8 %; Mean Corpuscular Hemoglobin 32.4 pg (25.0-34.0); Mean Corpuscular Hgb Conc 32.9 g/dL (32.0-36.0); Mean Corpuscular Volume 98.4 fL (80.0-100.0); Mean Platelet Volume 9.5 fL (9.4-12.3); Monocytes # (auto) 0.35 K/uL (0.24-0.82); Monocytes % (auto) 4.6 %; Neutrophils # (auto) 5.88 K/uL (1.4-6.5); Neutrophils % (auto) 77.5 %; Platelet Count 119 K/uL (130-400); RDW Coefficient of Variation 13.2 % (11.5-14.5); RDW Standard Deviation 47.5 fL (36.4-46.3); White Blood Count 7.58 K/ul (4.8-10.8)
[2022-09-10 07:15] LABS: BUN Creatinine Ratio 7.1 (10-20); Calcium 9.1 mg/dl (8.5-10.1); Creatinine Clr Calc Pharmacy 7.2 ml/min; Est GFR (African American) 3.7 ml/min; Est GFR (Non-African American) 3.2 ml/min; Potassium 5.6 mmol/L (3.5-5.1)
[2022-09-10 07:16] LABS: Troponin I High Sensitivity 43.8 pg/ml (0-14)
[2022-09-10 07:50] LABS: INR 1.1 (0.9-1.1); Partial Thromboplastin Ratio 0.9; Partial Thromboplastin Time 25.5 Seconds (21.0-31.0); Prothrombin Time 11.5 Seconds (9.0-12.0)
[2022-09-10] MEDS: CALCIUM ACETATE 667 MG CAP/TAB PO SCH ×3 (08:14→18:08)
[2022-09-10] MEDS: FLUTICASONE/VILANTEROL 100/25MCG 14 PUFFS/INHALER INH SCH (08:15)
[2022-09-10] MEDS: DICLOFENAC SOD 1% GEL 100 GM TUBE EXT SCH ×3 (08:15→20:43)
[2022-09-10] MEDS: NEPHROCAPS PO SCH (08:16)
[2022-09-10] MEDS: SERTRALINE HCL 50 MG TABLET PO SCH (08:16)
[2022-09-10] MEDS: PANTOprazole 40 MG TAB PO SCH ×2 (08:16→20:44)
--- NOTE | 2022-09-10 09:34 | Gastrointestinal Consultation ---
Date of Consultation September 10, 2022 Assessment & Plan (1) BRBPR (bright red blood per rectum): 36 year old female with HTN, ESRD on HD, history of FSGS s/pt failed renal transplantation, T2DM, diet controlled, mood disorder, history of umbilical hernia, colonic polyps/diverticulosis, chronic anemia (baseline hemoglobin of 8- 9), history of migraine, left acromioclavicular osteoarthritis, medical noncompliance, past tobacco abuse admitted with HTN crisis. GI asked to evaluate for rectal bleeding. To go for dialysis today Clear liquids today NPO midnight Golytely bowel prep Plan for EGD/Colon Saturday Trend H&H Transfuse PRN Document output IV PPI BID Thank you for allowing us to participate in the care of this patient. Please call with any acute changes, questions or concerns. Please see addendum below with additional recommendation from my supervising physician. Supervising Physician Co-Signing Physician Notes I have seen and exaMINED patient on 09/10 with ANGÉLICA Cota whose note reflects our findings and plan. Rectal bleeding. EGD and colonoscopy planned for Saturday. History of Present Illness Reason for Consultation: Valente Requesting Physician: Valente Attending Physician: Juan Victor MD History of Present Illness 36 year old female with HTN, ESRD on HD, history of FSGS status post failed renal transplantation, T2DM, diet controlled, mood disorder, history of umbilical hernia, colonic polyps/diverticulosis, chronic anemia (baseline hemoglobin of 8- 9), history of migraine, left acromioclavicular osteoarthritis, medical noncompliance, past tobacco abuse admitted with HTN crisis. GI asked to evaluate for rectal bleeding. Pt was seen and evaluated, chart reviewed. Notes that about 2 months ago, she develoeped painless rectal bleeding. This occurs daily. Can be small volume limited to toilet tissue or large volume discoloring toilet bowl water. Denies black stools. No report of nausea, vomiting, hematemesis/coffee ground emesis. CTAP 2022: 1. There is mild wall thickening of the duodenum with surrounding infiltration and fluid. Similar fluid and infiltration is seen within the hepatic hilum and gallbladder fossa. These findings are of indeterminate significance and are new from 09/02/2022. This could be related to fluid overload/ascites. Correlate with clinical and laboratory findings for evidence of possible duodenitis, ulcer disease, groove pancreatitis, or hepatobiliary pathology. Allergies Allergy/AdvReac Type Severity Reaction Status Date / Time cefaclor Allergy Intermediate Rash Verified 02/07/22 19:01 amoxicillin AdvReac Intermediate VOMITING Verified 02/07/22 19:01 clavulanic acid AdvReac Intermediate VOMITING Verified 02/07/22 19:01 Home Medications Medication Instructions Recorded Confirmed Type carvedilol 3.125 mg tablet 3.125 mg PO BID 12/21/19 09/10/22 History hydroxyzine HCl 25 mg tablet 25 mg PO DAILY PRN Anxiety and 04/21/20 09/10/22 History before Dialysis calcium acetate(phosphat bind) 667 2,001 mg PO TIDM 06/22/20 09/10/22 History mg capsule albuterol sulfate 90 mcg/actuation 2 puff inhalation QID PRN 08/01/20 09/10/22 History aerosol inhaler Shortness Of Breath sertraline 100 mg tablet 150 mg PO QAM 08/02/20 09/10/22 History amlodipine 10 mg tablet 10 mg PO HS 08/10/20 09/10/22 History vitamin B complex-vitamin C-folic 1 tab PO QAM 08/10/20 09/10/22 History acid 0.8 mg tablet (Renal Vitamin) cinacalcet 30 mg tablet (Sensipar) 60 mg PO QDD 03/06/21 09/10/22 History lorazepam 0.5 mg tablet 0.5 mg PO DAILY PRN anxiety and 03/06/21 09/10/22 History before dialysis medroxyprogesterone 150 mg/mL 150 mg IM Q90D 03/06/21 09/10/22 History intramuscular suspension (Depo-Provera) gabapentin 400 mg capsule 400 mg PO AMHS 06/27/21 09/10/22 History (Neurontin) dicyclomine 10 mg capsule 10 mg PO QID PRN cyst 01/19/22 09/10/22 History doxepin 100 mg capsule 200 mg PO HS 01/19/22 09/10/22 History mometasone-formoterol HFA 200 2 puff inhalation BID 01/19/22 09/10/22 History mcg-5 mcg/actuation aerosol inhaler (Dulera) omeprazole 20 mg capsule,delayed 20 mg PO AMHS 01/19/22 09/10/22 History release diclofenac sodium 1 % topical gel 2 g EXT TID #100 grams 01/23/22 09/10/22 Rx (Voltaren Arthritis Pain) oxycodone-acetaminophen 5 mg-325 1 tab PO Q12H PRN severe pain #10 03/21/22 09/10/22 Rx mg tablet (Percocet) tabs Patient History Medical History Anemia due to end stage renal disease Anxiety Anxiety and depression Asthma "BEEN A WHILE" SINCE USING LAST RESCUE INHALER AVF (arteriovenous fistula) bilt---currently using right for dialysis CKD (chronic kidney disease) stage V requiring chronic dialysis Depression Dialysis patient SATURDAY/SAT/SATURDAY AT [facility] DM2 (diabetes mellitus, type 2) DM2 (diabetes mellitus, type 2) ESRD (end stage renal disease) on dialysis Fistula right arm (currently being used) and left arm FSGS (focal segmental glomerulosclerosis) DX INITIALLY 2012 (CAUSING ESRD 2012) GERD (gastroesophageal reflux disease) History of abnormal cervical Papanicolaou smear HTN (hypertension) Peripheral neuropathy Prolonged QT interval Restless leg syndrome Surgical History H/O eye surgery LASER SURGERY LEFT H/O hernia repair ABDOMINAL WALL H/O knee surgery LEFT KNEE X 2 H/O tubal ligation H/O: X 2 History of cardiac cath 2016 NO STENTS History of cholecystectomy History of colonoscopy History of surgery (~09/09/20) perm cath replacement History of surgery left arm d/t clot in arm from AV fistula use @ [facility] History of tooth extraction three TOOTH Kidney transplant recipient 2013 AT [facility] S/P arteriovenous (AV) fistula creation right arm Family History Grandmother Hx of CABG Mother Diabetes Father Crohn's disease Grandfather (Maternal) Diabetes Uncle Diabetes Grandmother (Maternal) Family history of reaction to anesthesia difficulty waking with colonoscopy Social History Smoking Status: Former smoker Tobacco Type: Cigarettes Cigarettes Per Day: half a pack; Second Hand Exposure: Yes; Hx Alcohol Use: No Hx Substance Use: No Preferred Language: Amharic Communication Ability: Effective Take Away Man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 Beliefs That Will Affect Care: None marital status: Single Current Living Situation: Family Current Living Situation Comment: Lives with fiance and kids How many Children do You have: 3 Feels Safe at Home: Yes Safety Concerns: Feels Safe At This Time Assistive Devices: None Review of Systems Review of Systems: All systems reviewed & are unremarkable except as noted in HPI & below Physical Exam Constitutional: WD/WN, vitals as above Chronically ill appearing Respiratory: normal respiratory effort, lungs clear to auscultation Cardiovascular: Rate/Rhythm: regular rate and regular rhythm Gastrointestinal (Abdomen): normal bowel sounds, soft, nontender, no hep atosplenomegaly Skin: no rashes, warm and dry Results & Data ([facility]) Vital Signs (Past 12 Hours) Vital Signs Temp Pulse Pulse Resp BP BP Pulse Ox 09/10/22 07:27 36.5 C 84 18 178/91 H 97 09/10/22 05:18 169/117 H 09/10/22 03:30 180/112 H 09/10/22 02:45 09/10/22 02:47 36.7 C 83 18 170/104 H 96 09/10/22 01:09 85 14 182/106 H 94 09/09/22 23:09 88 16 170/92 H 97 09/09/22 21:45 36.5 C 95 H 21 197/110 H 98 O2 Del Method 09/10/22 07:27 Room Air 09/10/22 05:18 09/10/22 03:30 09/10/22 02:45 Room Air 09/10/22 02:47 Room Air 09/10/22 01:09 Room Air 09/09/22 23:09 Room Air 09/09/22 21:45 Room Air Laboratory Results 09/10/22 09/10/22 09/10/22 Range/Units 07:26 06:34 06:34 WBC (4.8-10.8) K/ul RBC (3.93-5.22) M/uL Hgb (12.0-16.0) g/dl Hct (34.1-44.9) % MCV (80.0-100.0) fL MCH (25.0-34.0) pg MCHC (32.0-36.0) g/dL RDW Std Deviation (36.4-46.3) fL RDW Coeff of Laith (11.5-14.5) % Plt Count (130-400) K/uL MPV (9.4-12.3) fL Immature Gran % (Auto) % Neut % (Auto) % Lymph % (Auto) % [place] % (Auto) % Eos % (Auto) % Baso % (Auto) % Neut # (Auto) (1.4-6.5) K/uL Lymph # (Auto) (1.2-3.4) K/uL [place] # (Auto) (0.24-0.82) K/uL Eos # (Auto) (0-0.50) K/uL Baso # (Auto) (0-0.2) K/uL Immature Gran # (Auto) (0.00-0.02) K/uL Ovalocytes PT INR APTT PTT Ratio Sodium 136 (136-145) mmol/L Potassium 5.6 H (3.5-5.1) mmol/L Chloride 96 L (98-107) mmol/L Carbon Dioxide 23 (21-32) mmol/L Anion Gap 17 H (3-11) BUN 93 H (6-23) mg/dl Creatinine 13.08 H* D (0.6-1.2) mg/dl Est Cr Clr Drug Dosing 7.2 ml/min Est GFR ( Amer) 3.7 ml/min Est GFR (Non-Af Amer) 3.2 ml/min BUN/Creatinine Ratio 7.1 L (10-20) Glucose 121 H (70-99(Fasting)) mg/dl POC Glucose 127 H (70-99) mg/dl Calcium 9.1 (8.5-10.1) mg/dl Magnesium (1.7-2.4) mg/dl Total Bilirubin (0.2-1.0) mg/dl AST (13-39) U/L ALT (7-52) U/L Alkaline Phosphatase (34-104) U/L Ammonia 34.0 (18-72) umol/L Troponin I High Sens 43.8 H (0-14) pg/ml Total Protein (6.0-8.3) gm/dl Albumin (3.4-5.0) gm/dl Globulin (2.5-4.0) gm/dl Albumin/Globulin Ratio (0.9-2) HCG, Qual (Negative) SARS-CoV-2 (PCR) (Negative) Influenza Type A (PCR) (Neg) Influenza Type B (PCR) (Neg) RSV (RT-PCR) (Neg) Blood Type Antibody Screen 09/10/22 09/10/22 09/10/22 Range/Units 06:34 06:34 06:34 WBC 7.58 (4.8-10.8) K/ul RBC 2.50 L (3.93-5.22) M/uL Hgb 8.1 L (12.0-16.0) g/dl Hct 24.6 L (34.1-44.9) % MCV 98.4 (80.0-100.0) fL MCH 32.4 (25.0-34.0) pg MCHC 32.9 (32.0-36.0) g/dL RDW Std Deviation 47.5 H (36.4-46.3) fL RDW Coeff of Laith 13.2 (11.5-14.5) % Plt Count 119 L (130-400) K/uL MPV 9.5 (9.4-12.3) fL Immature Gran % (Auto) 0.3 % Neut % (Auto) 77.5 % Lymph % (Auto) 14.8 % [place] % (Auto) 4.6 % Eos % (Auto) 2.5 % Baso % (Auto) 0.3 % Neut # (Auto) 5.88 (1.4-6.5) K/uL Lymph # (Auto) 1.12 L (1.2-3.4) K/uL [place] # (Auto) 0.35 (0.24-0.82) K/uL Eos # (Auto) 0.19 (0-0.50) K/uL Baso # (Auto) 0.02 (0-0.2) K/uL Immature Gran # (Auto) 0.02 (0.00-0.02) K/uL Ovalocytes PT 11.5 INR 1.1 APTT 25.5 PTT Ratio 0.9 Sodium (136-145) mmol/L Potassium (3.5-5.1) mmol/L Chloride (98-107) mmol/L Carbon Dioxide (21-32) mmol/L Anion Gap (3-11) BUN (6-23) mg/dl Creatinine (0.6-1.2) mg/dl Est Cr Clr Drug Dosing ml/min Est GFR ( Amer) ml/min Est GFR (Non-Af Amer) ml/min BUN/Creatinine Ratio (10-20) Glucose (70-99(Fasting)) mg/dl POC Glucose (70-99) mg/dl Calcium (8.5-10.1) mg/dl Magnesium (1.7-2.4) mg/dl Total Bilirubin (0.2-1.0) mg/dl AST (13-39) U/L ALT (7-52) U/L Alkaline Phosphatase (34-104) U/L Ammonia (18-72) umol/L Troponin I High Sens (0-14) pg/ml Total Protein (6.0-8.3) gm/dl Albumin (3.4-5.0) gm/dl Globulin (2.5-4.0) gm/dl Albumin/Globulin Ratio (0.9-2) HCG, Qual (Negative) SARS-CoV-2 (PCR) (Negative) Influenza Type A (PCR) (Neg) Influenza Type B (PCR) (Neg) RSV (RT-PCR) (Neg) Blood Type A Positive Antibody Screen NEGATIVE 09/10/22 09/09/22 09/09/22 Range/Units 03:29 23:12 22:31 WBC (4.8-10.8) K/ul RBC (3.93-5.22) M/uL Hgb (12.0-16.0) g/dl Hct (34.1-44.9) % MCV (80.0-100.0) fL MCH (25.0-34.0) pg MCHC (32.0-36.0) g/dL RDW Std Deviation (36.4-46.3) fL RDW Coeff of Laith (11.5-14.5) % Plt Count (130-400) K/uL MPV (9.4-12.3) fL Immature Gran % (Auto) % Neut % (Auto) % Lymph % (Auto) % [place] % (Auto) % Eos % (Auto) % Baso % (Auto) % Neut # (Auto) (1.4-6.5) K/uL Lymph # (Auto) (1.2-3.4) K/uL [place] # (Auto) (0.24-0.82) K/uL Eos # (Auto) (0-0.50) K/uL Baso # (Auto) (0-0.2) K/uL Immature Gran # (Auto) (0.00-0.02) K/uL Ovalocytes PT INR APTT PTT Ratio Sodium (136-145) mmol/L Potassium (3.5-5.1) mmol/L Chloride (98-107) mmol/L Carbon Dioxide (21-32) mmol/L Anion Gap (3-11) BUN (6-23) mg/dl Creatinine (0.6-1.2) mg/dl Est Cr Clr Drug Dosing ml/min Est GFR ( Amer) ml/min Est GFR (Non-Af Amer) ml/min BUN/Creatinine Ratio (10-20) Glucose (70-99(Fasting)) mg/dl POC Glucose 146 H (70-99) mg/dl Calcium (8.5-10.1) mg/dl Magnesium (1.7-2.4) mg/dl Total Bilirubin (0.2-1.0) mg/dl AST (13-39) U/L ALT (7-52) U/L Alkaline Phosphatase (34-104) U/L Ammonia (18-72) umol/L Troponin I High Sens (0-14) pg/ml Total Protein (6.0-8.3) gm/dl Albumin (3.4-5.0) gm/dl Globulin (2.5-4.0) gm/dl Albumin/Globulin Ratio (0.9-2) HCG, Qual Negative (Negative) SARS-CoV-2 (PCR) NEGATIVE (Negative) Influenza Type A (PCR) Negative (Neg) Influenza Type B (PCR) Negative (Neg) RSV (RT-PCR) Negative (Neg) Blood Type Antibody Screen 09/09/22 09/09/22 09/09/22 Range/Units 22:31 22:31 22:31 WBC 7.93 (4.8-10.8) K/ul RBC 2.36 L (3.93-5.22) M/uL Hgb 7.9 L (12.0-16.0) g/dl Hct 23.9 L (34.1-44.9) % MCV 101.3 H (80.0-100.0) fL MCH 33.5 (25.0-34.0) pg MCHC 33.1 (32.0-36.0) g/dL RDW Std Deviation 48.6 H (36.4-46.3) fL RDW Coeff of Laith 13.2 (11.5-14.5) % Plt Count 114 L (130-400) K/uL MPV 10.1 (9.4-12.3) fL Immature Gran % (Auto) 0.3 % Neut % (Auto) 83.2 % Lymph % (Auto) 8.3 % [place] % (Auto) 5.4 % Eos % (Auto) 2.4 % Baso % (Auto) 0.4 % Neut # (Auto) 6.60 H (1.4-6.5) K/uL Lymph # (Auto) 0.66 L (1.2-3.4) K/uL [place] # (Auto) 0.43 (0.24-0.82) K/uL Eos # (Auto) 0.19 (0-0.50) K/uL Baso # (Auto) 0.03 (0-0.2) K/uL Immature Gran # (Auto) 0.02 (0.00-0.02) K/uL Ovalocytes 1+ PT Cancelled INR Cancelled APTT Cancelled PTT Ratio Cancelled Sodium 135 L (136-145) mmol/L Potassium 5.5 H (3.5-5.1) mmol/L Chloride 98 (98-107) mmol/L Carbon Dioxide 23 (21-32) mmol/L Anion Gap 14 H (3-11) BUN 89 H (6-23) mg/dl Creatinine 12.73 H* (0.6-1.2) mg/dl Est Cr Clr Drug Dosing 7.4 ml/min Est GFR ( Amer) 3.9 ml/min Est GFR (Non-Af Amer) 3.3 ml/min BUN/Creatinine Ratio 7.0 L (10-20) Glucose 135 H (70-99(Fasting)) mg/dl POC Glucose (70-99) mg/dl Calcium 8.4 L (8.5-10.1) mg/dl Magnesium 2.7 H (1.7-2.4) mg/dl Total Bilirubin 0.4 (0.2-1.0) mg/dl AST 23 (13-39) U/L ALT 31 (7-52) U/L Alkaline Phosphatase 69 (34-104) U/L Ammonia (18-72) umol/L Troponin I High Sens 43.9 H (0-14) pg/ml Total Protein 6.2 (6.0-8.3) gm/dl Albumin 3.7 (3.4-5.0) gm/dl Globulin 2.5 (2.5-4.0) gm/dl Albumin/Globulin Ratio 1.5 (0.9-2) HCG, Qual (Negative) SARS-CoV-2 (PCR) (Negative) Influenza Type A (PCR) (Neg) Influenza Type B (PCR) (Neg) RSV (RT-PCR) (Neg) Blood Type Antibody Screen
[2022-09-10] MEDS ORDERED: SODIUM CHLORIDE 0.9% 1000ML 1,000 ML IV PRN (13:51)
--- NOTE | 2022-09-10 14:01 | Hospitalist Progress Note ---
Date of Service September 10, 2022 Assessment & Plan (1) Chest pain: Plan: Possibly from hypertensive crisis Multifactorial : Missed dialysis, hx ESRD secondary to FSGS sp failed renal transplantation on HD Abdominal pain-persisting and is not rate controlled with oral narcotic History of medication noncompliance Denies any more chest pain this morning Serial cardiac enzymes and negative for any ACS Hemoglobin is 8.1 and will have EGD and colonoscopy rule out any bleeding Acute on chronic anemia, hemoglobin drop from baseline secondary to subacute L GIB History colonic polyps/diverticulosis Rule out C. difficile -negative for C. difficile colitis Has not been having any more rectal bleed and lower black stool Follow H&H, transfuse PRBC if hemoglobin less than 7 and or for symptomatic anemia Appreciate GI input and recommendation Will have EGD and colonoscopy tomorrow Hyperkalemia, AGMA secondary to ESRD, missed dialysis Bicarb for hyperkalemia with concomitant metabolic acidosis Nephrology consult RE dialysis management Will have hemodialysis today Left acromioclavicular osteoarthritis, elective surgery contemplated outpatient No acute issues DM2, diet controlled, well-controlled as of recent hemoglobin A1c of 5.9 last July 2022 ISS BG goal 110-140, carb count coverage Mood disorder, at baseline Past tobacco abuse DVT prophylaxis. SCDs RE GI bleed causing significant anemia Full code Admission and Anticipated Discharge Date Admission Date: September 10, 2022 Subjective 09/10/2022 The patient was seen and examined in telemetry unit She complains to have abdominal pain which is not being controlled with oral narcotics She denies any nausea or vomiting and did not have any rectal bleed Shortness of breath at rest denies any chest pain and no palpitation No fever and or chills Review of Systems Review of Systems: All systems reviewed and are unremarkable except as noted below Physical Exam Physical Exam: Lying in bed with distress due to abdominal pain Constitutional: well developed, well nourished, + ill appearing and + obese Eyes: PERRL, conjunctivae normal, anicteric sclerae ENMT: external ear and nose normal, oropharynx normal Neck: trachea midline, no thyromegaly Respiratory: no respiratory distress Auscultation: + diminished lung sounds and + crackles (Minimal crackles at the bases) Gastrointestinal (Abdomen): Inspection/Auscultation: normal bowel sounds; abdomen not distended Percussion/Palpation: + abdomen tender (All over, mostly in the epic history) and abdomen soft Musculoskeletal: No acute arthritis involving any joint Neurologic: Alert, 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, generally weak but no focal sensory or no motor deficit appreciated Lymphatic: no cervical or axillary lymphadenopathy Results & Data Results & Data ([facility]) Vital Signs (Past 12 Hours) Vital Signs Temp Pulse Resp BP Pulse Ox O2 Del Method 09/10/22 11:32 36.5 C 82 17 136/82 95 Room Air 09/10/22 08:00 Room Air 09/10/22 07:27 36.5 C 84 18 178/91 H 97 Room Air 09/10/22 05:18 169/117 H 09/10/22 03:30 180/112 H 09/10/22 02:45 Room Air 09/10/22 02:47 36.7 C 83 18 170/104 H 96 Room Air Laboratory Results Short CBC 09/09/22 09/10/22 Range/Units 22:31 06:34 WBC 7.93 7.58 (4.8-10.8) K/ul Hgb 7.9 L 8.1 L (12.0-16.0) g/dl Hct 23.9 L 24.6 L (34.1-44.9) % Plt Count 114 L 119 L (130-400) K/uL BMP 09/09/22 09/10/22 22:31 06:34 Sodium 135 L 136 Potassium 5.5 H 5.6 H Chloride 98 96 L Carbon Dioxide 23 23 BUN 89 H 93 H Creatinine 12.73 H* 13.08 H* D Glucose 135 H 121 H Calcium 8.4 L 9.1 Liver Function 09/09/22 Range/Units 22:31 Total Bilirubin 0.4 (0.2-1.0) mg/dl AST 23 (13-39) U/L ALT 31 (7-52) U/L Alkaline Phosphatase 69 (34-104) U/L Albumin 3.7 (3.4-5.0) gm/dl Medications Administered Current Inpatient Medications Acetaminophen (Acetaminophen 325 Mg Tab) 650 mg PO Q6H PRN PRN Reason: Fever/pain Stop: 10/10/22 00:55 Amlodipine Besylate (Amlodipine Besylate 5 Mg Tab) 10 mg PO HS NIKKI Stop: 10/10/22 05:19 Last Admin: 09/10/22 05:52 Dose: 10 mg Calcium Acetate (Calcium Acetate 667 Mg Cap/Tab) 2,001 mg PO TIDM [facility] Stop: 10/10/22 07:59 Last Admin: 09/10/22 11:45 Dose: Not Given Carvedilol (Carvedilol 3.125 Mg Tab) 3.125 mg PO BID [facility] Stop: 10/10/22 08:59 Cinacalcet (Cinacalcet Hcl 30 Mg Tab) 60 mg PO QDD [facility] Stop: 10/10/22 16:29 Dextrose (Dextrose 50% 50 Ml Syringe) 25 - 50 ml IV UD PRN; Protocol PRN Reason: Hypoglycemia Protocol Stop: 10/10/22 03:07 Diclofenac Sodium (Diclofenac Sod 1% Gel 100 Gm Tube) 2 gm EXT TID [facility]; Protocol Stop: 10/10/22 08:59 Last Admin: 09/10/22 13:45 Dose: 2 gm Fluticasone/Vilanterol (Fluticasone/Vilanterol 100/25mcg 14 Puffs/Inhaler) 1 puffs INH DAILY [facility] Stop: 10/10/22 08:59 Last Admin: 09/10/22 08:15 Dose: 1 puffs Glucagon (Glucagon For Inj 1 Mg Vial) 1 mg SQ UD PRN; Protocol PRN Reason: Hypoglycemia Protocol Stop: 10/10/22 03:07 Glucose (Glucose 40% Gel 15 Gm Tube) 15 - 30 gm PO UD PRN; Protocol PRN Reason: Hypoglycemia Protocol Stop: 10/10/22 03:07 Glucose (Glucose 10 Tab/Tube) 4 - 8 tab PO UD PRN; Protocol PRN Reason: Hypoglycemia Treatment Stop: 10/10/22 03:07 Hydroxyzine HCl (Hydroxyzine Hcl 25 Mg Tab) 25 mg PO DAILY PRN PRN Reason: Anxiety and before Dialysis Stop: 10/10/22 03:07 Promethazine HCl 12.5 mg/ (Sodium Chloride) 50.5 mls @ 202 mls/hr IV Q6H PRN PRN Reason: Nausea And Vomiting Stop: 10/10/22 00:55 Last Infusion: 09/10/22 11:23 Dose: Infused Sodium Chloride (Nss 1000ml) 1,000 mls @ 0 mls/hr IV .Q0M PRN PRN Reason: For Hemodialysis Use ONLY Stop: 09/10/22 19:50 Insulin Aspart (Insulin Aspart Per Unit) 0 units SC ACHS [facility] Stop: 10/10/22 03:07 Last Admin: 09/10/22 11:51 Dose: 1 units Miscellaneous (Carbohydrates For Hypoglycemia ) 15 - 30 gm PO UD PRN PRN Reason: Hypoglycemia Protocol Stop: 10/10/22 03:07 Morphine Sulfate (Morphine Sulfate 4 Mg/Ml 1 Ml Carp\Vial) 4 mg IV Q6H PRN PRN Reason: Pain Stop: 09/24/22 11:44 Nitroglycerin (Nitroglycerin Sl 0.4 Mg/Tab Tab) 0.4 mg SL UD PRN PRN Reason: Chest Pain Stop: 10/10/22 03:07 Oxycodone/Acetaminophen (Oxycodone/Acetaminophen 5mg/325mg Tab) 1 tab PO BID PRN PRN Reason: Pain Stop: 09/24/22 00:55 Last Admin: 09/10/22 02:13 Dose: 1 tab Pantoprazole Sodium (Pantoprazole 40 Mg Tab) 40 mg PO BID [facility] Stop: 10/10/22 08:59 Last Admin: 09/10/22 08:16 Dose: 40 mg Polyethylene Glycol/Electrolytes (Lavage Solution 4000ml) 16 dose PO TODAY@1600 [facility] Stop: 09/10/22 20:00 Sertraline HCl (Sertraline Hcl 50 Mg Tablet) 150 mg PO QAM [facility] Stop: 10/10/22 08:59 Last Admin: 09/10/22 08:16 Dose: 150 mg Vitamin B Complex/Folic Acid (Nephrocaps) 1 cap PO QAM [facility] Stop: 10/10/22 08:59 Last Admin: 09/10/22 08:16 Dose: 1 cap
[2022-09-10] MEDS: hydrOXYzine HCl 25 MG TAB PO PRN ×2 (14:30→15:43)
--- NOTE | 2022-09-10 14:52 | Nephrology Consultation ---
Date of Consultation September 10, 2022 Assessment & Plan (1) ESRD on dialysis: ESRD on HD. - She missed the HD on saturday, Potassium is raised - Will dialsyse her for 3 hr , heparin free and 10,000u Epo.@ 3lit UF. - She will need mulriple TX to get to her dey weight - Please continue on all her outpatient medication. - Renal diet. - Her BP will improve with UF, Continue with her incenter anti hypertensives. (2) Abdominal cramping: - as per primary History of Present Illness Reason for Consultation: ESRD on HD, missed dialysis Attending Physician: Juan Victor MD History of Present Illness 36 Yrs old admitted with multiple complains, increasing abdominal pain, RI bleeding, general lethargy and elevated Blood pressure. Non co-operative on exam, difficult to take a meningful history. PMH of hypertension, ESRD on HD, history of FSGS status post failed renal ,transplantation, DM2, diet controlled, mood disorder, history of umbilical hernia, colonic polyps/diverticulosis, chronic anemia (baseline hemoglobin of 8-9), history of migraine, left acromioclavicular osteoarthritis, medical noncompliance, past tobacco abuse. Multiple ER visits and hospital confinements since 2016. Patient missed Saturday dialysis . No melena, no hematemesis, fever or chills. Allergies Allergy/AdvReac Type Severity Reaction Status Date / Time cefaclor Allergy Intermediate Rash Verified 02/07/22 19:01 amoxicillin AdvReac Intermediate VOMITING Verified 02/07/22 19:01 clavulanic acid AdvReac Intermediate VOMITING Verified 02/07/22 19:01 Home Medications Medication Instructions Recorded Confirmed Type carvedilol 3.125 mg tablet 3.125 mg PO BID 12/21/19 09/10/22 History hydroxyzine HCl 25 mg tablet 25 mg PO DAILY PRN Anxiety and 04/21/20 09/10/22 History before Dialysis calcium acetate(phosphat bind) 667 2,001 mg PO TIDM 06/22/20 09/10/22 History mg capsule albuterol sulfate 90 mcg/actuation 2 puff inhalation QID PRN 08/01/20 09/10/22 History aerosol inhaler Shortness Of Breath sertraline 100 mg tablet 150 mg PO QAM 08/02/20 09/10/22 History amlodipine 10 mg tablet 10 mg PO HS 08/10/20 09/10/22 History vitamin B complex-vitamin C-folic 1 tab PO QAM 08/10/20 09/10/22 History acid 0.8 mg tablet (Renal Vitamin) cinacalcet 30 mg tablet (Sensipar) 60 mg PO QDD 03/06/21 09/10/22 History lorazepam 0.5 mg tablet 0.5 mg PO DAILY PRN anxiety and 03/06/21 09/10/22 History before dialysis medroxyprogesterone 150 mg/mL 150 mg IM Q90D 03/06/21 09/10/22 History intramuscular suspension (Depo-Provera) gabapentin 400 mg capsule 400 mg PO AMHS 06/27/21 09/10/22 History (Neurontin) dicyclomine 10 mg capsule 10 mg PO QID PRN cyst 01/19/22 09/10/22 History doxepin 100 mg capsule 200 mg PO HS 01/19/22 09/10/22 History mometasone-formoterol HFA 200 2 puff inhalation BID 01/19/22 09/10/22 History mcg-5 mcg/actuation aerosol inhaler (Dulera) omeprazole 20 mg capsule,delayed 20 mg PO AMHS 01/19/22 09/10/22 History release diclofenac sodium 1 % topical gel 2 g EXT TID #100 grams 01/23/22 09/10/22 Rx (Voltaren Arthritis Pain) oxycodone-acetaminophen 5 mg-325 1 tab PO Q12H PRN severe pain #10 03/21/22 09/10/22 Rx mg tablet (Percocet) tabs Patient History Medical History Anemia due to end stage renal disease Anxiety Anxiety and depression Asthma "BEEN A WHILE" SINCE USING LAST RESCUE INHALER AVF (arteriovenous fistula) bilt---currently using right for dialysis CKD (chronic kidney disease) stage V requiring chronic dialysis Depression Dialysis patient SATURDAY/SAT/SATURDAY AT [facility] DM2 (diabetes mellitus, type 2) DM2 (diabetes mellitus, type 2) ESRD (end stage renal disease) on dialysis Fistula right arm (currently being used) and left arm FSGS (focal segmental glomerulosclerosis) DX INITIALLY 2012 (CAUSING ESRD 2012) GERD (gastroesophageal reflux disease) History of abnormal cervical Papanicolaou smear HTN (hypertension) Peripheral neuropathy Prolonged QT interval Restless leg syndrome Surgical History H/O eye surgery LASER SURGERY LEFT H/O hernia repair ABDOMINAL WALL H/O knee surgery LEFT KNEE X 2 H/O tubal ligation H/O: X 2 History of cardiac cath 2017 NO STENTS History of cholecystectomy History of colonoscopy History of surgery (~09/09/20) perm cath replacement History of surgery left arm d/t clot in arm from AV fistula use @ [facility] History of tooth extraction three TOOTH Kidney transplant recipient 2013 AT [facility] S/P arteriovenous (AV) fistula creation right arm Family History Grandmother Hx of CABG Mother Diabetes Father Crohn's disease Grandfather (Maternal) Diabetes Uncle Diabetes Grandmother (Maternal) Family history of reaction to anesthesia difficulty waking with colonoscopy Social History Smoking Status: Former smoker Tobacco Type: Cigarettes Cigarettes Per Day: half a pack; Second Hand Exposure: Yes; Hx Alcohol Use: No Hx Substance Use: No Preferred Language: Portuguese Communication Ability: Effective Supervisor Fusing Room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 Beliefs That Will Affect Care: None marital status: Single Current Living Situation: Family Current Living Situation Comment: Lives with fiance and kids How many Children do You have: 3 Feels Safe at Home: Yes Safety Concerns: Feels Safe At This Time Assistive Devices: None Review of Systems Review of Systems: Generalized abdominal pain RI bleed no edema no SOB Physical Exam Physical Exam: Physical Exam--General: non- non co-operative Head: No masses, lesions, tenderness or abnormalities Nose: no mucosal erythema, no mucosal edema Oropharynx: mucous membranes are moist Neck: supple, no JVD Heart: regular rate & rhythm, no murmurs and no gallops Lungs: normal respiratory rate and rhythm, lungs clear to auscultation Abdomen: abdomen soft, non-tender Back: No CVA tenderness Extremities: No edema Results & Data ([facility]) Vital Signs (Past 12 Hours) Vital Signs Temp Pulse Resp BP Pulse Ox O2 Del Method 09/10/22 11:32 36.5 C 82 17 136/82 95 Room Air 09/10/22 08:00 Room Air 09/10/22 07:27 36.5 C 84 18 178/91 H 97 Room Air 09/10/22 05:18 169/117 H 09/10/22 03:30 180/112 H 09/10/22 02:45 Room Air 09/10/22 02:47 36.7 C 83 18 170/104 H 96 Room Air Laboratory Results 09/10/22 06:34 09/10/22 06:34
[2022-09-10] MEDS ORDERED: EPOETIN ALFA 10,000 UNITS/ML VIAL IV ONE (15:00)
[2022-09-10] MEDS ORDERED: LAVAGE SOLUTION 4000ML PO SCH (16:00)
[2022-09-10] MEDS: CINACALCET HCL 30 MG TAB PO SCH (18:07)
[2022-09-10] MEDS: carvediloL 3.125 MG TAB PO SCH ×2 (18:07→20:44)
[2022-09-10] MEDS ORDERED: amLODIPine BESYLATE 5 MG TAB PO SCH (21:00)
--- NOTE | 2022-09-10 21:54 | Electrocardiogram Report ---
Test Reason : Blood Pressure : / mmHG Vent. Rate : 092 BPM Atrial Rate : 092 BPM P-R Int : 142 ms QRS Dur : 096 ms QT Int : 392 ms P-R-T Axes : 043 001 026 degrees QTc Int : 484 ms Normal sinus rhythm Possible Anterior infarct (cited on or before 05-SEP-2022) Prolonged QT Abnormal ECG When compared with ECG of 05-SEP-2022 10:14, No significant change was found Confirmed by Johny Rodriguez ([id number]) on 09/10/2022 9:53:55 PM Referred By: REFERRED SELF Confirmed By:Johny Rodriguez
[2022-09-10] MEDS: MoRPHine SULFATE 4 MG/ML 1 ML CARP\\VIAL IV PRN (23:31)
[2022-09-11] MEDS: oxyCODONE/ACETAMINOPHEN 5mg/325mg TAB PO PRN ×2 (05:52→19:52)
[2022-09-11 08:07] LABS: BUN Creatinine Ratio 5.7 (10-20); Calcium 9.5 mg/dl (8.5-10.1); Creatinine Clr Calc Pharmacy 9.8 ml/min; Est GFR (African American) 5.6 ml/min; Est GFR (Non-African American) 4.8 ml/min; Potassium 5.2 mmol/L (3.5-5.1)
[2022-09-11] MEDS: INSULIN ASPART PER UNIT SC SCH ×4 (08:13→20:11)
[2022-09-11] MEDS ORDERED: SODIUM CHLORIDE 0.9% 1000ML 1,000 ML IV PRN (08:17)
[2022-09-11] MEDS ORDERED: PROPOFOL IV EMULSION 10 MG/ML 20 ML VIAL IV ONE (08:28)
[2022-09-11] MEDS ORDERED: LIDOCAINE 2% MPF LOCAL 5 ML VIAL INFIL ONE (08:28)
--- NOTE | 2022-09-11 08:42 | History & Physical Report ---
Date of Service September 11, 2022 Assessment & Plan (1) Anemia: Plan: EGD/colonoscopy today (2) Rectal bleeding: Admission and Anticipated Discharge Date Admission Date: September 10, 2022 History of Present Illness Chief Complaint: rectal bleeding Primary Care Provider: Adolph Aldridge MD rectal bleeding Allergies Allergy/AdvReac Type Severity Reaction Status Date / Time cefaclor Allergy Intermediate Rash Verified 02/07/22 19:01 amoxicillin AdvReac Intermediate VOMITING Verified 02/07/22 19:01 clavulanic acid AdvReac Intermediate VOMITING Verified 02/07/22 19:01 Home Medications Medication Instructions Recorded Confirmed Type carvedilol 3.125 mg tablet 3.125 mg PO BID 12/21/19 09/10/22 History hydroxyzine HCl 25 mg tablet 25 mg PO DAILY PRN Anxiety and 04/21/20 09/10/22 History before Dialysis calcium acetate(phosphat bind) 667 2,001 mg PO TIDM 06/22/20 09/10/22 History mg capsule albuterol sulfate 90 mcg/actuation 2 puff inhalation QID PRN 08/01/20 09/10/22 History aerosol inhaler Shortness Of Breath sertraline 100 mg tablet 150 mg PO QAM 08/02/20 09/10/22 History amlodipine 10 mg tablet 10 mg PO HS 08/10/20 09/10/22 History vitamin B complex-vitamin C-folic 1 tab PO QAM 08/10/20 09/10/22 History acid 0.8 mg tablet (Renal Vitamin) cinacalcet 30 mg tablet (Sensipar) 60 mg PO QDD 03/06/21 09/10/22 History lorazepam 0.5 mg tablet 0.5 mg PO DAILY PRN anxiety and 03/06/21 09/10/22 History before dialysis medroxyprogesterone 150 mg/mL 150 mg IM Q90D 03/06/21 09/10/22 History intramuscular suspension (Depo-Provera) gabapentin 400 mg capsule 400 mg PO AMHS 06/27/21 09/10/22 History (Neurontin) dicyclomine 10 mg capsule 10 mg PO QID PRN cyst 01/19/22 09/10/22 History doxepin 100 mg capsule 200 mg PO HS 01/19/22 09/10/22 History mometasone-formoterol HFA 200 2 puff inhalation BID 01/19/22 09/10/22 History mcg-5 mcg/actuation aerosol inhaler (Dulera) omeprazole 20 mg capsule,delayed 20 mg PO AMHS 01/19/22 09/10/22 History release diclofenac sodium 1 % topical gel 2 g EXT TID #100 grams 01/23/22 09/10/22 Rx (Voltaren Arthritis Pain) oxycodone-acetaminophen 5 mg-325 1 tab PO Q12H PRN severe pain #10 03/21/22 09/10/22 Rx mg tablet (Percocet) tabs Past Med/Surg History Medical History Anemia due to end stage renal disease Anxiety Anxiety and depression Asthma "BEEN A WHILE" SINCE USING LAST RESCUE INHALER AVF (arteriovenous fistula) bilt---currently using right for dialysis CKD (chronic kidney disease) stage V requiring chronic dialysis Depression Dialysis patient SATURDAY/SAT/SATURDAY AT [facility] DM2 (diabetes mellitus, type 2) DM2 (diabetes mellitus, type 2) ESRD (end stage renal disease) on dialysis Fistula right arm (currently being used) and left arm FSGS (focal segmental glomerulosclerosis) DX INITIALLY 2012 (CAUSING ESRD 2012) GERD (gastroesophageal reflux disease) History of abnormal cervical Papanicolaou smear HTN (hypertension) Peripheral neuropathy Prolonged QT interval Restless leg syndrome Surgical History H/O eye surgery LASER SURGERY LEFT H/O hernia repair ABDOMINAL WALL H/O knee surgery LEFT KNEE X 2 H/O tubal ligation H/O: X 2 History of cardiac cath 2016 NO STENTS History of cholecystectomy History of colonoscopy History of surgery (~09/09/20) perm cath replacement History of surgery left arm d/t clot in arm from AV fistula use @ [facility] History of tooth extraction three TOOTH Kidney transplant recipient 2013 AT [facility] S/P arteriovenous (AV) fistula creation right arm Family History Grandmother Hx of CABG Mother Diabetes Father Crohn's disease Grandfather (Maternal) Diabetes Uncle Diabetes Grandmother (Maternal) Family history of reaction to anesthesia difficulty waking with colonoscopy Social History Smoking Status: Former smoker Tobacco Type: Cigarettes Cigarettes Per Day: half a pack; Second Hand Exposure: Yes; Hx Alcohol Use: No Hx Substance Use: No Preferred Language: Urdu Communication Ability: Effective Psychiatric Lpn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 Beliefs That Will Affect Care: None marital status: Single Current Living Situation: Family Current Living Situation Comment: Lives with fiance and kids How many Children do You have: 3 Feels Safe at Home: Yes Safety Concerns: Feels Safe At This Time Assistive Devices: None Results & Data ([facility]) Vital Signs (Past 12 Hours) Vital Signs Temp Pulse Pulse Pulse Resp BP BP 09/11/22 07:14 36.5 C 85 18 173/98 H 09/11/22 03:08 09/11/22 02:42 36.8 C 80 18 195/86 H 09/10/22 22:03 83 09/10/22 23:00 36.9 C 79 18 168/94 H Pulse Ox Pulse Ox O2 Del Method O2 Del Method 09/11/22 07:14 94 Room Air 09/11/22 03:08 96 Room Air 09/11/22 02:42 96 Room Air 09/10/22 22:03 09/10/22 23:00 96 Room Air Code Status & VTE Plan VTE Prophylaxis Plan VTE Prophylaxis will be ordered: Yes
--- NOTE | 2022-09-11 08:59 | Anesthesiology Consultation ---
Date of Service September 11, 2022 Assessment & Plan Chart Review Chart Review: Acceptable Risk for Surgery and Patient NOT seen in Pre Admission Testing Consults Requested none ASA ASA3 Proposed Anesthesia Anesthesia Type: MAC Risk / Benefits Reviewed With: PT / POA / Parent / Guardian, Accepts Plan and Informed Consent Obtained History Surgery Operation Date: 09/11/22 16:30 Proposed Procedures p Colonoscopy EGD Dr Thayer - Natalie Thayer, DO Height/Weight Height: 5 ft 6 in Weight: 98.8 kg Allergies Allergy/AdvReac Type Severity Reaction Status Date / Time cefaclor Allergy Intermediate Rash Verified 02/07/22 19:01 amoxicillin AdvReac Intermediate VOMITING Verified 02/07/22 19:01 clavulanic acid AdvReac Intermediate VOMITING Verified 02/07/22 19:01 Medications Home Medications Medication Instructions Recorded Confirmed Last Taken carvedilol 3.125 mg tablet 3.125 mg PO BID 12/21/19 09/10/22 09/10/22 hydroxyzine HCl 25 mg tablet 25 mg PO DAILY PRN Anxiety and 04/21/20 09/10/22 01/19/22 05:00 before Dialysis calcium acetate(phosphat bind) 667 2,001 mg PO TIDM 06/22/20 09/10/22 09/09/22 mg capsule albuterol sulfate 90 mcg/actuation 2 puff inhalation QID PRN 08/01/20 09/10/22 03/12/21 aerosol inhaler Shortness Of Breath sertraline 100 mg tablet 150 mg PO QAM 08/02/20 09/10/22 09/09/22 amlodipine 10 mg tablet 10 mg PO HS 08/10/20 09/10/22 09/08/22 vitamin B complex-vitamin C-folic 1 tab PO QAM 08/10/20 09/10/22 09/09/22 acid 0.8 mg tablet (Renal Vitamin) cinacalcet 30 mg tablet (Sensipar) 60 mg PO QDD 03/06/21 09/10/22 09/08/22 lorazepam 0.5 mg tablet 0.5 mg PO DAILY PRN anxiety and 03/06/21 09/10/22 01/19/22 05:00 before dialysis medroxyprogesterone 150 mg/mL 150 mg IM Q90D 03/06/21 09/10/22 07/17/21 intramuscular suspension (Depo-Provera) gabapentin 400 mg capsule 400 mg PO AMHS 06/27/21 09/10/22 09/09/22 (Neurontin) dicyclomine 10 mg capsule 10 mg PO QID PRN cyst 01/19/22 09/10/22 09/09/22 doxepin 100 mg capsule 200 mg PO HS 01/19/22 09/10/22 09/08/22 mometasone-formoterol HFA 200 2 puff inhalation BID 01/19/22 09/10/22 09/09/22 mcg-5 mcg/actuation aerosol inhaler (Dulera) omeprazole 20 mg capsule,delayed 20 mg PO AMHS 01/19/22 09/10/22 09/09/22 release diclofenac sodium 1 % topical gel 2 g EXT TID #100 grams 01/23/22 09/10/22 09/09/22 (Voltaren Arthritis Pain) oxycodone-acetaminophen 5 mg-325 1 tab PO Q12H PRN severe pain #10 03/21/22 09/10/22 Unknown mg tablet (Percocet) tabs Active Medications Generic Name Dose Route Start Last Admin Trade Name Freq PRN Reason Stop Dose Admin Amlodipine Besylate 10 mg 09/10/22 05:20 09/10/22 05:52 Amlodipine Besylate 5 Mg Tab PO 10/10/22 05:19 10 mg HS NIKKI Administration Calcium Acetate 2,001 mg 09/10/22 08:00 09/10/22 18:08 Calcium Acetate 667 Mg Cap/Tab PO 10/10/22 07:59 Not Given TIDM NIKKI Carvedilol 3.125 mg 09/10/22 09:00 09/10/22 20:44 Carvedilol 3.125 Mg Tab PO 10/10/22 08:59 3.125 mg BID NIKKI Administration Cinacalcet 60 mg 09/10/22 16:30 09/10/22 18:07 Cinacalcet Hcl 30 Mg Tab PO 10/10/22 16:29 Not Given QDD NIKKI Diclofenac Sodium 2 gm 09/10/22 09:00 09/10/22 20:43 Diclofenac Sod 1% Gel 100 Gm Tube EXT 10/10/22 08:59 2 gm TID NIKKI Administration Protocol Fluticasone/Vilanterol 1 puffs 09/10/22 09:00 09/10/22 08:15 Fluticasone/Vilanterol 100/25mcg 14 Puffs/Inhaler INH 10/10/22 08:59 1 puffs DAILY NIKKI Administration Hydroxyzine HCl 25 mg 09/10/22 03:08 09/10/22 15:43 Hydroxyzine Hcl 25 Mg Tab PO 10/10/22 03:07 25 mg DAILY PRN Administration Anxiety and before Dialysis Promethazine HCl 12.5 mg/ 50.5 mls @ 202 mls/hr 09/10/22 00:56 09/10/22 11:23 Sodium Chloride IV 10/10/22 00:55 Infused Q6H PRN Infusion Nausea And Vomiting Insulin Aspart 0 units 09/10/22 03:08 09/11/22 08:13 Insulin Aspart Per Unit SC 10/10/22 03:07 Not Given ACHS NIKKI Morphine Sulfate 4 mg 09/10/22 11:45 09/10/22 23:31 Morphine Sulfate 4 Mg/Ml 1 Ml Carp\\Vial IV 09/24/22 11:44 4 mg Q6H PRN Administration Pain Oxycodone/Acetaminophen 1 tab 09/10/22 00:56 09/11/22 05:52 Oxycodone/Acetaminophen 5mg/325mg Tab PO 09/24/22 00:55 1 tab BID PRN Administration Pain Pantoprazole Sodium 40 mg 09/10/22 09:00 09/10/22 20:44 Pantoprazole 40 Mg Tab PO 10/10/22 08:59 40 mg BID NIKKI Administration Sertraline HCl 150 mg 09/10/22 09:00 09/10/22 08:16 Sertraline Hcl 50 Mg Tablet PO 10/10/22 08:59 150 mg QAM NIKKI Administration Vitamin B Complex/Folic Acid 1 cap 09/10/22 09:00 09/10/22 08:16 Nephrocaps PO 10/10/22 08:59 1 cap QAM NIKKI Administration NPO Date Last Intake of Fluids: 09/10/22 Time Last Intake of Fluids: 23:59 Last Intake of Solids Comment: pt reports no solid food since before midnight Past Medical History Medical History Anemia due to end stage renal disease Anxiety Anxiety and depression Asthma "BEEN A WHILE" SINCE USING LAST RESCUE INHALER AVF (arteriovenous fistula) bilt---currently using right for dialysis CKD (chronic kidney disease) stage V requiring chronic dialysis Depression Dialysis patient SATURDAY/SAT/SATURDAY AT [facility] DM2 (diabetes mellitus, type 2) DM2 (diabetes mellitus, type 2) ESRD (end stage renal disease) on dialysis Fistula right arm (currently being used) and left arm FSGS (focal segmental glomerulosclerosis) DX INITIALLY 2012 (CAUSING ESRD 2012) GERD (gastroesophageal reflux disease) History of abnormal cervical Papanicolaou smear HTN (hypertension) Peripheral neuropathy Prolonged QT interval Restless leg syndrome Past Family History Family History Grandmother Hx of CABG Mother Diabetes Father Crohn's disease Grandfather (Maternal) Diabetes Uncle Diabetes Grandmother (Maternal) Family history of reaction to anesthesia difficulty waking with colonoscopy Past Surgical History Surgical History H/O eye surgery LASER SURGERY LEFT H/O hernia repair ABDOMINAL WALL H/O knee surgery LEFT KNEE X 2 H/O tubal ligation H/O: X 2 History of cardiac cath 2016 NO STENTS History of cholecystectomy History of colonoscopy History of surgery (~09/09/20) perm cath replacement History of surgery left arm d/t clot in arm from AV fistula use @ [facility] History of tooth extraction three TOOTH Kidney transplant recipient [address] [facility] S/P arteriovenous (AV) fistula creation right arm History of PONV No Hx of PONV and No Hx of Motion Sickness Social History Smoking Status: Former smoker tobacco type: cigarettes Smoking cigarettes per day: half a pack-she denies Do You Dip or Chew Tobacco: No Hx Alcohol Use: No Alcohol type: hard liquor alcohol intake frequency: holidays/special occasions only Hx Substance Use: No substance use type: marijuana Last Used Substance: Days (ago) Physical Exam Vital Signs Last Vital Signs Temp 36.2 C L 09/11/22 08:39 Pulse 81 09/11/22 08:39 Resp 16 09/11/22 08:39 BP 249/116 H 09/11/22 08:39 Pulse Ox 95 09/11/22 08:39 O2 Del Method 09/11/22 08:39 Constitutional + obese ENMT Mouth: + dentition abnormality (several cracked teeth); no TMJ abnormality Thyromental Distance: > or= 3.5 Finger Breadths Mallampati Class: II Neck normal visual inspection Respiratory normal respiratory effort Cardiovascular Rate/Rhythm: regular rate and regular rhythm Musculoskeletal Spine: normal cervical ROM Extremities: extremities normal to inspection Neurologic moves all extremities Psychiatric Orientation: alert and oriented x 3 Testing Laboratory Results 09/11/22 07:15 PT 11.5 Seconds (9.0-12.0) 09/10/22 06:34 INR 1.1 (0.9-1.1) 09/10/22 06:34 APTT 25.5 Seconds (21.0-31.0) 09/10/22 06:34 Blood Type A Positive 09/10/22 06:34 Antibody Screen NEGATIVE 09/10/22 06:34 09/11/22 09/11/22 07:13 01:00 POC Glucose 124 H 118 H
[2022-09-11] MEDS ORDERED: HEPARIN SOD (PORCINE) 1000 UNIT/ML IV SCH (09:00)
[2022-09-11] MEDS ORDERED: EPOETIN ALFA 10,000 UNITS/ML VIAL IV SCH (09:00)
[2022-09-11 09:11] LABS: Hematocrit (blood only) 24.8 % (34.1-44.9); Hemoglobin 8.3 g/dl (12.0-16.0); Mean Corpuscular Hemoglobin 32.2 pg (25.0-34.0); Mean Corpuscular Hgb Conc 33.5 g/dL (32.0-36.0); Mean Corpuscular Volume 96.1 fL (80.0-100.0); Mean Platelet Volume 9.9 fL (9.4-12.3); Ovalocytes 1+; Platelet Count 130 K/uL (130-400); RDW Coefficient of Variation 13.2 % (11.5-14.5); RDW Standard Deviation 46.5 fL (36.4-46.3); Red Blood Count 2.58 M/uL (3.93-5.22); Tear Drop Cells 1+; White Blood Count 7.05 K/ul (4.8-10.8)
[2022-09-11 09:12] LABS: ALC (manual) 0.49 K/uL (1.2-3.4); ANC (manual) 5.99 K/uL (1.4-6.5); Basophils # (manual) 0.07 K/uL (0-0.2); Basophils % (manual) 1 %; Eosinophils # (manual) 0.21 K/uL (0-0.50); Eosinophils % (manual) 3 %; Lymphocytes # (manual) 0.49 K/uL (1.2-3.4); Lymphocytes % (manual) 7 %; Monocytes # (manual) 0.28 K/uL (0.24-0.82); Monocytes % (manual) 4 %; Neutrophils # (manual) 5.99 K/uL (1.4-6.5); Neutrophils % (manual) 85 %
--- NOTE | 2022-09-11 09:23 | Anesthesiology Progress Note ---
Date of Service September 11, 2022 Anesthesia Post Procedure Vital Signs Vital Signs: Temp Pulse Pulse Pulse Pulse Resp BP 09/11/22 08:39 36.2 C L 81 16 09/11/22 07:14 36.5 C 85 18 09/11/22 03:08 09/11/22 02:42 36.8 C 80 18 09/10/22 19:45 09/10/22 22:03 83 09/10/22 23:00 36.9 C 79 18 09/10/22 19:26 36.7 C 81 18 09/10/22 17:16 36.8 C 85 09/10/22 17:00 84 174/96 H 09/10/22 16:30 89 171/101 H 09/10/22 16:00 85 164/102 H 09/10/22 15:30 82 142/91 H 09/10/22 15:00 87 148/90 H 09/10/22 14:49 78 160/83 H 09/10/22 14:40 36.9 C 77 09/10/22 11:32 36.5 C 82 17 BP BP BP Pulse Ox Pulse Ox O2 Del Method O2 Del Method 09/11/22 08:39 249/116 H 95 Room Air 09/11/22 07:14 173/98 H 94 Room Air 09/11/22 03:08 96 Room Air 09/11/22 02:42 195/86 H 96 Room Air 09/10/22 19:45 Room Air 09/10/22 22:03 09/10/22 23:00 168/94 H 96 Room Air 09/10/22 19:26 166/75 H 94 Room Air 09/10/22 17:16 177/98 H 09/10/22 17:00 09/10/22 16:30 09/10/22 16:00 09/10/22 15:30 09/10/22 15:00 09/10/22 14:49 09/10/22 14:40 09/10/22 11:32 136/82 95 Room Air Pain Intensity Abdomen: Pain Intensity: 10 Transfer of Care Handoff Completed per policy Notes Mental Status: alert / awake / arousable and participated in evaluation Patient Amnestic to Procedure: Yes Nausea / Vomiting: adequately controlled Pain: adequately controlled Airway Patency, RR, SpO2: stable & adequate BP & HR: stable & adequate Hydration State: stable & adequate Anesthetic Complications: no major complications apparent and Pt Satisfied with anesthetic care
--- NOTE | 2022-09-11 09:30 | GI REPORT ---
Patient Name: Alexandra Arguello Procedure Date: 09/11/2022 9:05 AM Date of : 1985 Admit Type: Inpatient Age: 36 Gender: Female Attending MD: Natalie Thayer DO, Procedure: Upper GI endoscopy Providers: Natalie Thayer DO Referring MD: Juan Victor Indications: Generalized abdominal pain, Iron deficiency anemia, rectal bleeding Medicines: Propofol per Anesthesia Complications: No immediate complications. Estimated blood loss: Minimal. Estimated Blood Loss: Estimated blood loss was minimal. Procedure: Pre-Anesthesia Assessment: - Prior to the procedure, a History and Physical was performed, and patient medications, allergies and sensitivities were reviewed. The patient's tolerance of previous anesthesia was reviewed. - The risks and benefits of the procedure and the sedation options and risks were discussed with the patient. All questions were answered and informed consent was obtained. - Patient identification and proposed procedure were verified prior to the procedure by the physician and the nurse. The procedure was verified in the pre-procedure area in the procedure room. - Mental Status Examination: alert and oriented. Airway Examination: normal oropharyngeal airway and neck mobility. Respiratory Examination: clear to auscultation. CV Examination: normal. Abdominal Examination: bowel sounds present, abdomen soft and non-tender, no masses or organomegaly noted. - ASA Grade Assessment: III - A patient with severe systemic disease. After obtaining informed consent, the endoscope was passed under direct vision. Throughout the procedure, the patient's blood pressure, pulse, and oxygen saturations were monitored continuously. The Endoscope was introduced through the mouth, and advanced to the third part of duodenum. The upper GI endoscopy was accomplished without difficulty. The patient tolerated the procedure well. Findings: The esophagus was normal. Mild inflammation characterized by erythema was found in the entire examined stomach. Biopsies were taken with a cold forceps for Helicobacter pylori testing. Verification of patient identification for the specimen was done by the physician and nurse using the patient's name and date. Estimated blood loss was minimal. Moderate mucosal changes characterized by congestion and erythema were found in the duodenal bulb. The second portion of the duodenum was normal. Impression: - Normal esophagus. - Gastritis. Biopsied. - Mucosal changes in the duodenum. - Normal second portion of the duodenum. Recommendation: - Await pathology results. - Follow an antireflux regimen. - [facility] patient to [facility] for [facility] care. - Outpatient colonoscopy for rectal bleeding to be arranged. - OK to advance diet Natalie Thayer D.O. Natalie Thayer, 09/11/2022 9:30:20 AM This report has been signed electronically. Note Initiated On: 09/11/2022 9:05 AM Number of Addenda: 0 I attest to the content of the Intraoperative Record and orders documented therein, exceptions below {[id number]}
[2022-09-11] MEDS: CALCIUM ACETATE 667 MG CAP/TAB PO SCH ×3 (10:09→17:03)
[2022-09-11] MEDS: PANTOprazole 40 MG TAB PO SCH ×2 (10:10→19:52)
[2022-09-11] MEDS: NEPHROCAPS PO SCH (10:10)
[2022-09-11] MEDS: DICLOFENAC SOD 1% GEL 100 GM TUBE EXT SCH ×3 (10:15→19:53)
[2022-09-11] MEDS: FLUTICASONE/VILANTEROL 100/25MCG 14 PUFFS/INHALER INH SCH (10:16)
[2022-09-11] MEDS: carvediloL 3.125 MG TAB PO SCH ×2 (10:16→19:52)
[2022-09-11] MEDS: SERTRALINE HCL 50 MG TABLET PO SCH (10:17)
[2022-09-11] MEDS: hydrOXYzine HCl 25 MG TAB PO PRN (10:50)
[2022-09-11] MEDS: HEPARIN SOD (PORCINE) 1000 UNIT/ML IV SCH ×2 (12:05→12:57)
--- NOTE | 2022-09-11 14:19 | Dialysis Progress Note ---
Date of Service September 11, 2022 Assessment & Plan (1) ESRD on dialysis: Plan: ESRD on HD. - She has missed multiple OP treatments prior to admission > and shortening txs in house - Will again plan to dialsyse her for 3 hr and 10,000u Epo.@ 3lit UF - She will need mulriple TX to get to her dey weight >> reeval in AM for tx - Please continue on all her outpatient medications. - Renal diet, FR 1.2 L when taking po. - Her BP will improve with UF, Continue with her OP anti hypertensives. (2) Abdominal cramping: Plan: - as per primary along w/ mgt of anxiety Admission and Anticipated Discharge Date Admission Date: September 10, 2022 Subjective came off HD early yesterday d/t anxiet. when I saw her just after noon today on tx, she was c/o uncontrolled back pain and anxiety when asked but was also dosing off literally after less than a sentence. endorsed orthopnea. had EGD today; refused to do colo prep. seen on dialysis Review of Systems Review of Systems: All systems reviewed & are unremarkable except as noted in Subjective Physical Exam Physical Exam: Physical Exam--General: no distress, lethargic but arouseable by voice Head: No masses, lesions, tenderness or abnormalities Oropharynx: mucous membranes are moist Neck: supple Heart: regular rate & rhythm, no murmurs and no gallops; AVF + t/b Lungs: normal respiratory rate and rhythm, lungs clear to auscultation on anterior exam Abdomen: abdomen soft, focal tenderness to moderate palpation not reproducible and w/o guarding or rebound Extremities: No edema Results & Data ([facility]) Vital Signs (Past 12 Hours) Vital Signs Temp Pulse Pulse Pulse Pulse Resp BP 09/11/22 13:00 79 184/81 H 09/11/22 12:30 80 197/107 H 09/11/22 12:00 77 191/96 H 09/11/22 11:30 77 187/98 H 09/11/22 11:00 77 217/104 H 09/11/22 10:44 79 202/104 H 09/11/22 10:34 36.9 C 80 09/11/22 10:10 36.6 C 81 18 09/11/22 09:53 78 20 09/11/22 09:39 85 18 09/11/22 09:26 91 H 14 09/11/22 08:39 36.2 C L 81 16 09/11/22 07:14 36.5 C 85 18 09/11/22 03:08 09/11/22 02:42 36.8 C 80 18 BP BP BP Pulse Ox Pulse Ox O2 Del Method O2 Del Method 09/11/22 13:00 09/11/22 12:30 09/11/22 12:00 09/11/22 11:30 09/11/22 11:00 09/11/22 10:44 09/11/22 10:34 09/11/22 10:10 188/95 H 95 Room Air 09/11/22 09:53 225/120 H 96 Room Air 09/11/22 09:39 208/112 H 96 Room Air 09/11/22 09:26 214/105 H 100 Room Air 09/11/22 08:39 249/116 H 95 Room Air 09/11/22 07:14 173/98 H 94 Room Air 09/11/22 03:08 96 Room Air 09/11/22 02:42 195/86 H 96 Room Air Laboratory Results 09/11/22 08:00 09/11/22 07:15
--- NOTE | 2022-09-11 15:48 | Hospitalist Progress Note ---
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 Abdominal pain-persisting and is not rate controlled with oral narcotic History of medication noncompliance Denies any more chest pain this morning Serial cardiac enzymes and negative for any ACS Hemoglobin is 8.1 and will have EGD and colonoscopy rule out any bleeding No more chest pain and/or cardiac symptoms Chronic pain Nonspecific-complains to have more abdominal pain since admission Oral pain medications with oxycodone/acetaminophen has not been controlling pain Morphine has been given as needed Acute on chronic anemia, hemoglobin drop from baseline secondary to subacute L GIB History colonic polyps/diverticulosis Rule out C. difficile -negative for C. difficile colitis Has not been having any more rectal bleed and lower black stool Follow H&H, transfuse PRBC if hemoglobin less than 7 and or for symptomatic anemia Appreciate GI input and recommendation Will have EGD and colonoscopy tomorrow Status post EGD which showed mild gastritis but no other significant findings and no bleeding We will have colonoscopy as an outpatient Hemoglobin remains stable Hyperkalemia, AGMA secondary to ESRD, missed dialysis Bicarb for hyperkalemia with concomitant metabolic acidosis Nephrology consult RE dialysis management Will have hemodialysis today Potassium has been improving Left acromioclavicular osteoarthritis, elective surgery contemplated outpatient No acute issues DM2, diet controlled, well-controlled as of recent hemoglobin A1c of 5.9 last July 2022 ISS BG goal 110-140, carb count coverage Mood disorder, at baseline Past tobacco abuse DVT prophylaxis. SCDs RE GI bleed causing significant anemia Full code Admission and Anticipated Discharge Date Admission Date: September 10, 2022 Subjective 09/10/2022 The patient was seen and examined in telemetry unit She complains to have abdominal pain which is not being controlled with oral narcotics She denies any nausea or vomiting and did not have any rectal bleed Shortness of breath at rest denies any chest pain and no palpitation No fever and or chills 09/11/2022 The patient was seen and examined in telemetry unit She has been tired following dialysis and sleeping Denies any significant discomfort and pain seems to be controlled Has nausea without any vomiting Did not have any more rectal bleeding since admission Review of Systems Review of Systems: All systems reviewed and are unremarkable except as noted below Physical Exam Physical Exam: Lying in bed with distress due to abdominal pain Constitutional: well developed, well nourished, + ill appearing and + obese Eyes: PERRL, conjunctivae normal, anicteric sclerae ENMT: external ear and nose normal, oropharynx normal Neck: trachea midline, no thyromegaly Respiratory: no respiratory distress Auscultation: + diminished lung sounds and + crackles (Minimal crackles at the bases) Cardiovascular: Rate/Rhythm: regular rate and regular rhythm; not tachycardic Heart Sounds: normal S1 and normal S2; no murmur Extremities: + edema (Trace edema bilateral) Gastrointestinal (Abdomen): Inspection/Auscultation: normal bowel sounds; abdomen not distended Percussion/Palpation: + abdomen tender (All over, mostl y in the epic history) and abdomen soft Musculoskeletal: No acute arthritis involving any joint Neurologic: normal touch/pain/proprioception and moves all extremities; no focal motor deficits Lymphatic: no cervical or axillary lymphadenopathy Results & Data Results & Data ([facility]) Vital Signs (Past 12 Hours) Vital Signs Temp Pulse Pulse Pulse Pulse Resp BP 09/11/22 15:16 36.5 C 81 18 09/11/22 13:48 36.8 C 79 09/11/22 13:30 80 185/79 H 09/11/22 13:00 79 184/81 H 09/11/22 12:30 80 197/107 H 09/11/22 12:00 77 191/96 H 09/11/22 11:30 77 187/98 H 09/11/22 11:00 77 217/104 H 09/11/22 10:44 79 202/104 H 09/11/22 10:34 36.9 C 80 09/11/22 10:10 36.6 C 81 18 09/11/22 09:53 78 20 09/11/22 09:39 85 18 09/11/22 09:26 91 H 14 09/11/22 08:39 36.2 C L 81 16 09/11/22 07:14 36.5 C 85 18 BP BP BP Pulse Ox O2 Del Method 09/11/22 15:16 163/95 H 96 Room Air 09/11/22 13:48 181/91 H 09/11/22 13:30 09/11/22 13:00 09/11/22 12:30 09/11/22 12:00 09/11/22 11:30 09/11/22 11:00 09/11/22 10:44 09/11/22 10:34 09/11/22 10:10 188/95 H 95 Room Air 09/11/22 09:53 225/120 H 96 Room Air 09/11/22 09:39 208/112 H 96 Room Air 09/11/22 09:26 214/105 H 100 Room Air 09/11/22 08:39 249/116 H 95 Room Air 09/11/22 07:14 173/98 H 94 Room Air Laboratory Results Short CBC 09/11/22 09/11/22 Range/Units 07:15 08:00 WBC Cancelled 7.05 Hgb Cancelled 8.3 L Hct Cancelled 24.8 L Plt Count Cancelled 130 BMP 09/11/22 07:15 Sodium 138 Potassium 5.2 H Chloride 95 L Carbon Dioxide 27 BUN 53 H D Creatinine 9.37 H* D Glucose 122 H Calcium 9.5 Medications Administered Current Inpatient Medications Acetaminophen (Acetaminophen 325 Mg Tab) 650 mg PO Q6H PRN PRN Reason: Fever/pain Stop: 10/10/22 00:55 Amlodipine Besylate (Amlodipine Besylate 5 Mg Tab) 10 mg PO HS NIKKI Stop: 10/10/22 05:19 Last Admin: 09/10/22 05:52 Dose: 10 mg Calcium Acetate (Calcium Acetate 667 Mg Cap/Tab) 2,001 mg PO TIDM NIKKI Stop: 10/10/22 07:59 Last Admin: 09/11/22 10:29 Dose: Not Given Carvedilol (Carvedilol 3.125 Mg Tab) 3.125 mg PO BID NIKKI Stop: 10/10/22 08:59 Last Admin: 09/11/22 10:16 Dose: 3.125 mg Cinacalcet (Cinacalcet Hcl 30 Mg Tab) 60 mg PO QDD NIKKI Stop: 10/10/22 16:29 Last Admin: 09/10/22 18:07 Dose: Not Given Dextrose (Dextrose 50% 50 Ml Syringe) 25 - 50 ml IV UD PRN; Protocol PRN Reason: Hypoglycemia Protocol Stop: 10/10/22 03:07 Diclofenac Sodium (Diclofenac Sod 1% Gel 100 Gm Tube) 2 gm EXT TID NIKKI; Protocol Stop: 10/10/22 08:59 Last Admin: 09/11/22 10:15 Dose: 2 gm Epoetin Travis (Epoetin Travis 10,000 Units/Ml Vial) 10,000 units IV TODAY@0900 [facility] Stop: 09/11/22 23:59 Last Admin: 09/11/22 12:06 Dose: 10,000 units Fluticasone/Vilanterol (Fluticasone/Vilanterol 100/25mcg 14 Puffs/Inhaler) 1 puffs INH DAILY [facility] Stop: 10/10/22 08:59 Last Admin: 09/11/22 10:16 Dose: Not Given Glucagon (Glucagon For Inj 1 Mg Vial) 1 mg SQ UD PRN; Protocol PRN Reason: Hypoglycemia Protocol Stop: 10/10/22 03:07 Glucose (Glucose 40% Gel 15 Gm Tube) 15 - 30 gm PO UD PRN; Protocol PRN Reason: Hypoglycemia Protocol Stop: 10/10/22 03:07 Glucose (Glucose 10 Tab/Tube) 4 - 8 tab PO UD PRN; Protocol PRN Reason: Hypoglycemia Treatment Stop: 10/10/22 03:07 Heparin Sodium (Porcine) (Heparin Sod (Porcine) 1000 Unit/Ml) 1,000 units IV TODAY@0900 [facility] Stop: 09/11/22 23:59 Last Admin: 09/11/22 11:42 Dose: Not Given Heparin Sodium (Porcine) (Heparin Sod (Porcine) 1000 Unit/Ml) 400 units IV TODAY@0900,1000,1100 [facility] Stop: 09/11/22 23:59 Last Admin: 09/11/22 12:57 Dose: Not Given Hydroxyzine HCl (Hydroxyzine Hcl 25 Mg Tab) 25 mg PO DAILY PRN PRN Reason: Anxiety and before Dialysis Stop: 10/10/22 03:07 Last Admin: 09/11/22 10:50 Dose: 25 mg Promethazine HCl 12.5 mg/ (Sodium Chloride) 50.5 mls @ 202 mls/hr IV Q6H PRN PRN Reason: Nausea And Vomiting Stop: 10/10/22 00:55 Last Infusion: 09/10/22 11:23 Dose: Infused Insulin Aspart (Insulin Aspart Per Unit) 0 units SC ACHS [facility] Stop: 10/10/22 03:07 Last Admin: 09/11/22 10:29 Dose: Not Given Miscellaneous (Carbohydrates For Hypoglycemia ) 15 - 30 gm PO UD PRN PRN Reason: Hypoglycemia Protocol Stop: 10/10/22 03:07 Morphine Sulfate (Morphine Sulfate 4 Mg/Ml 1 Ml Carp\Vial) 4 mg IV Q6H PRN PRN Reason: Pain Stop: 09/24/22 11:44 Last Admin: 09/10/22 23:31 Dose: 4 mg Nitroglycerin (Nitroglycerin Sl 0.4 Mg/Tab Tab) 0.4 mg SL UD PRN PRN Reason: Chest Pain Stop: 10/10/22 03:07 Oxycodone/Acetaminophen (Oxycodone/Acetaminophen 5mg/325mg Tab) 1 tab PO BID PRN PRN Reason: Pain Stop: 09/24/22 00:55 Last Admin: 09/11/22 05:52 Dose: 1 tab Pantoprazole Sodium (Pantoprazole 40 Mg Tab) 40 mg PO BID [facility] Stop: 10/10/22 08:59 Last Admin: 09/11/22 10:10 Dose: Not Given Sertraline HCl (Sertraline Hcl 50 Mg Tablet) [facility] [place]: 10/10/22 08:59 Last Admin: 09/11/22 10:17 Dose: 150 mg Vitamin B Complex/Folic Acid (Nephrocaps) 1 cap PO QAM [facility] Stop: 10/10/22 08:59 Last Admin: 09/11/22 10:10 Dose: Not Given
[2022-09-11] MEDS: CINACALCET HCL 30 MG TAB PO SCH (17:03)
[2022-09-11] MEDS: amLODIPine BESYLATE 5 MG TAB PO SCH (19:52)
[2022-09-11] MEDS: MoRPHine SULFATE 4 MG/ML 1 ML CARP\\VIAL IV PRN (23:19)
[2022-09-12] MEDS: MoRPHine SULFATE 4 MG/ML 1 ML CARP\\VIAL IV PRN (06:31)
[2022-09-12] MEDS ORDERED: SODIUM CHLORIDE 0.9% 1000ML 1,000 ML IV PRN (07:45)
[2022-09-12] MEDS ORDERED: HEPARIN SOD (PORCINE) 1000 UNIT/ML IV ONE (07:50)
[2022-09-12] MEDS: CALCIUM ACETATE 667 MG CAP/TAB PO SCH ×3 (08:17→14:30)
[2022-09-12] MEDS: carvediloL 3.125 MG TAB PO SCH (08:18)
[2022-09-12] MEDS: NEPHROCAPS PO SCH (08:18)
[2022-09-12] MEDS: PANTOprazole 40 MG TAB PO SCH (08:18)
[2022-09-12] MEDS: SERTRALINE HCL 50 MG TABLET PO SCH (08:18)
[2022-09-12] MEDS: FLUTICASONE/VILANTEROL 100/25MCG 14 PUFFS/INHALER INH SCH (08:19)
[2022-09-12] MEDS: DICLOFENAC SOD 1% GEL 100 GM TUBE EXT SCH ×2 (08:19→14:29)
[2022-09-12] MEDS: INSULIN ASPART PER UNIT SC SCH ×2 (08:26→14:15)
[2022-09-12] MEDS ORDERED: EPOETIN ALFA 10,000 UNITS/ML VIAL IV ONE (08:30)
[2022-09-12] MEDS: hydrOXYzine HCl 25 MG TAB PO PRN (10:32)
--- NOTE | 2022-09-12 11:02 | Hospitalist Progress Note ---
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 Abdominal pain-persisting and is not rate controlled with oral narcotic History of medication noncompliance Denies any more chest pain this morning Serial cardiac enzymes and negative for any ACS Hemoglobin is 8.1 and will have EGD and colonoscopy rule out any bleeding No more chest pain and/or cardiac symptoms Hemoglobin remains stable at 8.3 as of 09/11/2022 Chronic pain Nonspecific-complains to have more abdominal pain since admission Oral pain medications with oxycodone/acetaminophen has not been controlling pain Morphine has been given as needed No more pain today and no nausea no vomiting and the morphine intravenous as needed doses have been discontinued She plans to go home this afternoon Acute on chronic anemia, hemoglobin drop from baseline secondary to subacute L GIB History colonic polyps/diverticulosis Rule out C. difficile -negative for C. difficile colitis Has not been having any more rectal bleed and lower black stool Follow H&H, transfuse PRBC if hemoglobin less than 7 and or for symptomatic anemia Appreciate GI input and recommendation Will have EGD and colonoscopy tomorrow Status post EGD which showed mild gastritis but no other significant findings and no bleeding We will have colonoscopy as an outpatient Hemoglobin remains stable-8.3 No hematochezia Hyperkalemia, AGMA secondary to ESRD, missed dialysis Bicarb for hyperkalemia with concomitant metabolic acidosis Nephrology consult RE dialysis management Will have hemodialysis today Potassium has been improving Left acromioclavicular osteoarthritis, elective surgery contemplated outpatient No acute issues DM2, diet controlled, well-controlled as of recent hemoglobin A1c of 5.9 last July 2022 ISS BG goal 110-140, carb count coverage Blood sugar remains stable and she will be going home this afternoon Mood disorder, at baseline Past tobacco abuse DVT prophylaxis. SCDs RE GI bleed causing significant anemia Full code Admission and Anticipated Discharge Date Admission Date: September 10, 2022 Subjective 09/10/2022 The patient was seen and examined in telemetry unit She complains to have abdominal pain which is not being controlled with oral narcotics She denies any nausea or vomiting and did not have any rectal bleed Shortness of breath at rest denies any chest pain and no palpitation No fever and or chills 09/11/2022 The patient was seen and examined in telemetry unit She has been tired following dialysis and sleeping Denies any significant discomfort and pain seems to be controlled Has nausea without any vomiting Did not have any more rectal bleeding since admission 09/12/2022 The patient was seen and examined in telemetry unit She has been feeling much better and denies any symptoms today She will have dialysis today and will be discharged home following that She has been ambulating in the room without any significant problem Review of Systems Review of Systems: All systems reviewed and are unremarkable except as noted below Physical Exam Physical Exam: Lying in bed with distress due to abdominal pain Constitutional: well developed, well nourished, + ill appearing and + obese Eyes: PERRL, conjunctivae normal, anicteric sclerae ENMT: external ear and nose normal, oropharynx normal Neck: trachea midline, no thyromegaly Respiratory: no respiratory distress Auscultation: lungs clear to auscultation bilaterally; no crackles (Minimal crackles at the bases) Cardiovascular: Rate/Rhythm: regular rate and regular rhythm; not tachycardic Heart Sounds: normal S1 and normal S2; no murmur Extremities: + edema (Trace edema bilateral) Gastrointestinal (Abdomen): Inspection/Auscultation: normal bowel sounds; abdomen not distended Percussion/Palpation: + abdomen tender (All over, mostly in the epic history) and abdomen soft Musculoskeletal: No acute arthritis involving any joint Neurologic: normal touch/pain/proprioception and moves all extremities; no focal motor deficits Psychiatric: A+Ox3, euthymic affect Lymphatic: no cervical or axillary lymphadenopathy Results & Data Results & Data ([facility]) Vital Signs (Past 12 Hours) Vital Signs Temp Pulse Pulse Resp BP Pulse Ox O2 Del Method 09/12/22 07:14 36.5 C 83 18 181/108 H 96 Room Air 09/12/22 02:35 36.8 C 82 18 158/92 H 93 Room Air 09/12/22 00:52 78 Medications Administered Current Inpatient Medications Acetaminophen (Acetaminophen 325 Mg Tab) 650 mg PO Q6H PRN PRN Reason: Fever/pain Stop: 10/10/22 00:55 Amlodipine Besylate (Amlodipine Besylate 5 Mg Tab) 10 mg PO HS NIKKI Stop: 10/10/22 05:19 Last Admin: 09/11/22 19:52 Dose: 10 mg Calcium Acetate (Calcium Acetate 667 Mg Cap/Tab) 2,001 mg PO TIDM [facility] Stop: 10/10/22 07:59 Last Admin: 09/12/22 08:17 Dose: 2,001 mg Carvedilol (Carvedilol 3.125 Mg Tab) 3.125 mg PO BID [facility] Stop: 10/10/22 08:59 Last Admin: 09/12/22 08:18 Dose: 3.125 mg Cinacalcet (Cinacalcet Hcl 30 Mg Tab) 60 mg PO QDD [facility] Stop: 10/10/22 16:29 Last Admin: 09/11/22 17:03 Dose: Not Given Dextrose (Dextrose 50% 50 Ml Syringe) 25 - 50 ml IV UD PRN; Protocol PRN Reason: Hypoglycemia Protocol Stop: 10/10/22 03:07 Diclofenac Sodium (Diclofenac Sod 1% Gel 100 Gm Tube) 2 gm EXT TID [facility]; Protocol Stop: 10/10/22 08:59 Last Admin: 09/12/22 08:19 Dose: 2 gm Fluticasone/Vilanterol (Fluticasone/Vilanterol 100/25mcg 14 Puffs/Inhaler) 1 puffs INH DAILY [facility] Stop: 10/10/22 08:59 Last Admin: 09/12/22 08:19 Dose: 1 puffs Glucagon (Glucagon For Inj 1 Mg Vial) 1 mg SQ UD PRN; Protocol PRN Reason: Hypoglycemia Protocol Stop: 10/10/22 03:07 Glucose (Glucose 40% Gel 15 Gm Tube) 15 - 30 gm PO UD PRN; Protocol PRN Reason: Hypoglycemia Protocol Stop: 10/10/22 03:07 Glucose (Glucose 10 Tab/Tube) 4 - 8 tab PO UD PRN; Protocol PRN Reason: Hypoglycemia Treatment Stop: 10/10/22 03:07 Hydroxyzine HCl (Hydroxyzine Hcl 25 Mg Tab) 25 mg PO DAILY PRN PRN Reason: Anxiety and before Dialysis Stop: 10/10/22 03:07 Last Admin: 09/12/22 10:32 Dose: 25 mg Promethazine HCl 12.5 mg/ (Sodium Chloride) 50.5 mls @ 202 mls/hr IV Q6H PRN PRN Reason: Nausea And Vomiting Stop: 10/10/22 00:55 Last Infusion: 09/10/22 11:23 Dose: Infused Sodium Chloride (Nss 1000ml) 1,000 mls @ 0 mls/hr IV .Q0M PRN PRN Reason: For Hemodialysis Use ONLY Stop: 09/12/22 13:44 Insulin Aspart (Insulin Aspart Per Unit) 0 units SC ACHS [facility] Stop: 10/10/22 03:07 Last Admin: 09/12/22 08:26 Dose: 1 units Miscellaneous (Carbohydrates For Hypoglycemia ) 15 - 30 gm PO UD PRN PRN Reason: Hypoglycemia Protocol Stop: 10/10/22 03:07 Nitroglycerin (Nitroglycerin Sl 0.4 Mg/Tab Tab) 0.4 mg SL UD PRN PRN Reason: Chest Pain Stop: 10/10/22 03:07 Oxycodone/Acetaminophen (Oxycodone/Acetaminophen 5mg/325mg Tab) 1 tab PO BID PRN PRN Reason: Pain Stop: 09/24/22 00:55 Last Admin: 09/11/22 19:52 Dose: 1 tab Pantoprazole Sodium (Pantoprazole 40 Mg Tab) 40 mg PO BID [facility] Stop: 10/10/22 08:59 Last Admin: 09/12/22 08:18 Dose: 40 mg Sertraline HCl (Sertraline Hcl 50 Mg Tablet) 150 mg PO QAM [facility] Stop: 10/10/22 08:59 Last Admin: 09/12/22 08:18 Dose: 150 mg Vitamin B Complex/Folic Acid (Nephrocaps) 1 cap PO QAM [facility] Stop: 10/10/22 08:59 Last Admin: 09/12/22 08:18 Dose: 1 cap
[2022-09-12 11:22] LABS: Iron 125 mcg/dl (35-150); Total Iron Binding Cap Calc 250 mcg/dl (250-450); Transferrin (FE) Percent Satur 50 % (15-50); Unsaturated Iron Binding Cap 125 mcg/dl (155-355)
[2022-09-12 12:31] LABS: HBSAG NON-REACTIVE (NON-REACTIVE)
[2022-09-12] MEDS: oxyCODONE/ACETAMINOPHEN 5mg/325mg TAB PO PRN (14:29)
--- NOTE | 2022-09-12 14:31 | Nephrology Progress Note ---
Date of Service September 12, 2022 Assessment & Plan (1) ESRD on dialysis: Plan: ESRD on HD. - She has missed multiple OP treatments prior to admission > and shortening txs in house - Will eval for HD tomorrow if still here; however not unreasonable to d/c home if other issues settled and will follow as OP - Please continue on all her outpatient medications. - Renal diet, FR 1.2 L when taking po. - Her BP will improve with UF, Continue with her OP anti hypertensives. (2) Abdominal cramping: Plan: - as per primary along w/ mgt of anxiety Admission and Anticipated Discharge Date Admission Date: September 10, 2022 Subjective seen just after return from HD; not sob, no edema ; got 3.3 L off; came off 15 min early d/t cramping and feeling sick to stomach Review of Systems Review of Systems: All systems reviewed & are unremarkable except as noted in Subjective Physical Exam Physical Exam: Physical Exam--General: no distress, obese, A&0 x 3, maneuvers readily for exam Head: No masses, lesions, tenderness or abnormalities Oropharynx: mucous membranes are moist Neck: supple Heart: regular rate & rhythm, no murmurs and no gallops; AVF + t/b Lungs: normal respiratory rate and rhythm, lungs clear to auscultation BL Abdomen: abdomen soft, NT and w/o guarding or rebound Extremities: No edema Results & Data ([facility]) Vital Signs (Past 12 Hours) Vital Signs Temp Pulse Pulse Pulse Resp BP BP 09/12/22 14:14 37.0 C 79 19 183/102 H 09/12/22 12:00 75 172/94 H 09/12/22 11:30 76 170/95 H 09/12/22 11:00 77 159/95 H 09/12/22 10:30 77 179/98 H 09/12/22 10:16 76 170/99 H 09/12/22 10:09 36.6 C 80 09/12/22 07:14 36.5 C 83 18 181/108 H 09/12/22 02:35 36.8 C 82 18 158/92 H Pulse Ox O2 Del Method 09/12/22 14:14 94 Room Air 09/12/22 12:00 09/12/22 11:30 09/12/22 11:00 09/12/22 10:30 09/12/22 10:16 09/12/22 10:09 09/12/22 07:14 96 Room Air 09/12/22 02:35 93 Room Air Laboratory Results 09/11/22 08:00 09/11/22 07:15
--- NOTE | 2022-09-13 07:38 | Discharge Summary ---
Date of Service September 12, 2022 Admission HPI Per Admitting Provider Chief Complaint: Chest pain, worsening abdominal pain/bloody diarrhea Primary Care Provider: Adolph Aldridge MD History obtained from patient and records. Medical history significant for hypertension, ESRD on HD, history of FSGS status post failed renal transplantation, DM2, diet controlled, mood disorder, history of umbilical hernia, colonic polyps/diverticulosis, chronic anemia (baseline hemoglobin of 8-9), history of migraine, left acromioclavicular osteoarthritis, medical noncompliance, past tobacco abuse. Multiple ER visits and hospital confinements since 2016. Last confinement February 2022 for chest pain likely musculoskeletal. 1 month history of intermittent bloody diarrhea with abdominal cramping. Increasing fatigue. Not sure about recent antibiotic medications. 2 ER visits last week. Outpatient colonoscopy recommended by PCP on outpatient visit 4 days ago. Transient substernal pain 2 days ago with some shortness of breath. Patient missed Saturday dialysis session because she fell asleep. Worsening abdominal discomfort and rectal bleeding as per patient. No melena, no hematemesis. No fever, no chills. Patient consulted ER for evaluation. SBP 190s upon arrival at the ER. Medical History as above 2018 colonoscopy showed diverticulosis and polyps Surgical History : Vascular procedures, section, cystoscopy, knee surgery, eye surgery, BTL, renal biopsy, kidney transplant Family History : SLE, Crohn's disease, high blood pressure, depression Personal/Social history past tobacco abuse, no EtOH intake, disabled Admission Exam Per Admitting Provider Physical Exam: GENERAL: uncomfortable, morbidly obese, looks older than stated age, lethargic, no respiratory distress SKIN: Pallor, warm HEENT: Pale palpebral conjunctivae, no ptosis, dry buccal mucosa NECK : Supple, short neck, no tenderness CHEST : Decreased breath sounds, no tenderness HEART : RRR, no obvious murmurs ABDOMEN: Some distention, hypogastric tenderness EXTREMITIES : Minimal LE swelling, no LE tenderness, upper extremity AV grafts, left shoulder tenderness NEUROLOGIC : Lethargic, no facial asymmetry, no other gross focality Principal Diagnosis Hypertensive crisis, chest pain secondary no ACS, epigastric pain status post negative EGD but gastritis, congestive renal disease on hemodialysis Discharge Exam Lying in bed with distress due to abdominal pain Constitutional well developed, well nourished, + ill appearing and + obese Eyes PERRL, conjunctivae normal, anicteric sclerae ENMT external ear and nose normal, oropharynx normal Neck trachea midline, no thyromegaly Respiratory no respiratory distress Auscultation: lungs clear to auscultation bilaterally and + diminished lung sounds; no crackles (Minimal crackles at the bases) Cardiovascular Rate/Rhythm: regular rate and regular rhythm; not tachycardic Heart Sounds: normal S1 and normal S2; no murmur Extremities: + edema (Trace edema bilateral) Gastrointestinal (Abdomen) Inspection/Auscultation: normal bowel sounds; abdomen not distended Percussion/Palpation: + abdomen tender (All over, mostly in the epic history) and abdomen soft Neurologic normal touch/pain/proprioception and moves all extremities; no focal motor deficits Psychiatric A+Ox3, euthymic affect Lymphatic no cervical or axillary lymphadenopathy Discharge Data Allergies Allergy/AdvReac Type Severity Reaction Status Date / Time cefaclor Allergy Intermediate Rash Verified 02/07/22 19:01 amoxicillin AdvReac Intermediate VOMITING Verified 02/07/22 19:01 clavulanic acid AdvReac Intermediate VOMITING Verified 02/07/22 19:01 Consultations 09/09/22 23:33 ED Decision to Admit Stat 09/10/22 03:08 Consult Gastroenterology Routine Consult Nephrology Routine Procedures Performed Operation Date: 09/11/22 16:30 Actual Procedures p EGD Biopsy Cytology - Natalie Thayer DO Ordered Studies 09/10/22 00:52 CT Abd and Pelvis [CT abd pelvis wo con] Stat Hospital Course (1) Chest pain: Possibly from hypertensive crisis Multifactorial : Missed dialysis, hx ESRD secondary to FSGS sp failed renal transplantation on HD Abdominal pain-persisting and is not rate controlled with oral narcotic History of medication noncompliance Denies any more chest pain this morning Serial cardiac enzymes and negative for any ACS Hemoglobin is 8.1 and will have EGD and colonoscopy rule out any bleeding No more chest pain and/or cardiac symptoms Hemoglobin remains stable at 8.3 as of 09/11/2022 Chronic pain Nonspecific-complains to have more abdominal pain since admission Oral pain medications with oxycodone/acetaminophen has not been controlling pain Morphine has been given as needed No more pain today and no nausea no vomiting and the morphine intravenous as needed doses have been discontinued She plans to go home this afternoon Acute on chronic anemia, hemoglobin drop from baseline secondary to subacute L GIB History colonic polyps/diverticulosis Rule out C. difficile -negative for C. difficile colitis Has not been having any more rectal bleed and lower black stool Follow H&H, transfuse PRBC if hemoglobin less than 7 and or for symptomatic anemia Appreciate GI input and recommendation Will have EGD and colonoscopy tomorrow Status post EGD which showed mild gastritis but no other significant findings and no bleeding We will have colonoscopy as an outpatient Hemoglobin remains stable-8.3 No hematochezia Hyperkalemia, AGMA secondary to ESRD, missed dialysis Bicarb for hyperkalemia with concomitant metabolic acidosis Nephrology consult RE dialysis management Will have hemodialysis today Potassium has been improving Left acromioclavicular osteoarthritis, elective surgery contemplated outpatient No acute issues DM2, diet controlled, well-controlled as of recent hemoglobin A1c of 5.9 last July 2022 ISS BG goal 110-140, carb count coverage Blood sugar remains stable and she will be going home this afternoon Mood disorder, at baseline Past tobacco abuse DVT prophylaxis. SCDs RE GI bleed causing significant anemia Full code Total Time Total Time Spent Total Time Spent (In Minutes): 35 minutes Discharge Plan Discharge Items Patient Disposition: Home - Self-Care Reason For Visit: CHEST PAIN, HYPERKALEMIA Discharge Diagnosis: Hypertensive crisis, chest pain secondary no ACS, epigastric pain status post negative EGD but gastritis, congestive renal disease on hemodialysis Condition on Discharge: Fair Activity: Resume your previous activity Non-emergency contact: Primary Care Provider Call non-emergency contact if: you have any medication questions and your symptoms worsen Follow-up/Referrals: Adolph Aldridge MD [Primary Care Provider] - (Date & Time 09/18/2022 10:20 AM Provider Adolph Aldridge MD Department [facility] ) Diet: Dialysis Renal Addtl Attending Provider Instructions: Please take precautions to avoid falls Take your medications as advised Please have outpatient dialysis as a schedule Keep appointment with your healthcare providers Pending Studies at Discharge: No Stand-Alone Forms: [employer], Smoking Cessation Medications and DC Order Prescriptions: Continued calcium acetate(phosphat bind) 667 mg capsule 2,001 mg PO TIDM Rx Instructions: 3 tabs with meals sertraline 100 mg tablet 150 mg PO QAM Rx Instructions: 1 & 1/2 TABLET DOSE carvedilol 3.125 mg tablet 3.125 mg PO BID hydroxyzine HCl 25 mg tablet 25 mg PO DAILY PRN (Reason: Anxiety and before Dialysis) albuterol sulfate 90 mcg/actuation HFA aerosol inhaler 2 puff INHALATION QID PRN (Reason: Shortness Of Breath) amlodipine 10 mg Tablet 10 mg PO HS Renal Vitamin 0.8 mg Tablet 1 tab PO QAM lorazepam 0.5 mg tablet 0.5 mg PO DAILY PRN (Reason: anxiety and before dialysis) medroxyprogesterone [Depo-Provera] 150 mg/mL suspension 150 mg IM Q90D cinacalcet [Sensipar] 30 mg Tablet 60 mg PO QDD Rx Instructions: Takes with evening meal gabapentin [Neurontin] 400 mg capsule 400 mg PO AMHS oxycodone-acetaminophen [Percocet] 5-325 mg Tablet 1 tab PO Q12H PRN (Reason: severe pain) Qty: 10 0RF dicyclomine 10 mg capsule 10 mg PO QID PRN (Reason: cyst) doxepin 100 mg capsule 200 mg PO HS omeprazole 20 mg capsule,delayed release(DR/EC) 20 mg PO AMHS Dulera 200-5 mcg/actuation HFA aerosol inhaler 2 puff INHALATION BID diclofenac sodium [Voltaren Arthritis Pain] 1 % Gel 2 g EXT TID Qty: 100 0RF Rx Instructions: Left Shoulder Discharge Orders: Discharge Order (Routine); Ordered 09/12/22 Ordered By: Juan Victor Admission Data Admit Date/Time: 09/10/22 00:55 Attending Provider: Juan Victor Admit Provider: Gilles Cunningham Primary Care Provider: Adolph Aldridge Other Providers: Gilles Cunningham ; Cristian Martinez ; Ramon Cardona ; Barbara Cordova ; Tami Silva ; Pratibha Stubbs ; Gala Patel ; Deni Perkins ; Walker Pollard ; Mickey Roth ; Sascha Beebe ; Constantino Claros ; Alice Barbosa ; Natalie Thayer ; Hanna Burrows ; Anjana George ; Carmela Capellan ; Quan Kirkland ; Baljeet Pollard ; Danita Gunderson ; Danielle Rios Jr ; Leah Nieves ; Jameel Wilson ; Cornelia Siegel ; Pato Saucedo ; Rishi Morel ; Jackie Alarcon Other Interventions: Discharge Summary Assessment (RN) Last Done: 09/12/22 16:01
== END 2022-09-12 16:26 | disposition home or self-care (01) | DRG 304 ==
LOC: ED 21:45 → 2S 09-10 00:55

== ENCOUNTER 2022-09-19 12:34 | Inpatient (IN) ==
--- NOTE | 2022-09-19 13:36 | XRay Report ---
XR chest 1V portable HISTORY: 36 years-old Female fall acute chest and left upper cavity pain status post fall COMPARISON: Left shoulder radiographs of same day, chest radiograph 09/09/2022 TECHNIQUE: AP view of the chest FINDINGS: Cardiac silhouette is enlarged. Poorly vascular congestion. No pneumothorax, pleural effusion, airspa ce consolidation or overt pulmonary edema. A vascular graft is again noted within the upper mediastin um. Bones appear grossly intact. IMPRESSION: Cardiomegaly with pulmonary vascular congestion. ACT 112: Negative or not required by law. The above report was generated using voice recognition software. It may contain grammatical, syntax o r spelling errors. Electronically signed by: Cristhian Copeland M.D. 09/19/2022 1:35 PM
--- NOTE | 2022-09-19 13:46 | XRay Report ---
XR shoulder LT min 2V routine, XR humerus LT 2V CLINICAL HISTORY: fall. Left arm pain. COMPARISON STUDY: Left shoulder 02/18/2020. FINDINGS: No fracture or dislocation within the left shoulder or left humerus. The left clavicle appe ars intact. There is a vascular stent seen within the left upper arm. No elbow effusion. IMPRESSION: No fractures within the left shoulder or left humerus. ACT 112: Negative or not required by law. Electronically signed by: Jose Jenkins M.D. 09/19/2022 1:44 PM
[2022-09-19] MEDS ORDERED: LORazepam 2 MG/1 ML VIAL IV STA (14:07)
[2022-09-19 14:26] LABS: Basophils # (auto) 0.01 K/uL (0-0.2); Basophils % (auto) 0.1 %; Eosinophils # (auto) 0.06 K/uL (0-0.50); Eosinophils % (auto) 0.8 %; Hematocrit (blood only) 25.3 % (34.1-44.9); Hemoglobin 8.4 g/dl (12.0-16.0); Immature Granulocytes # (auto) 0.02 K/uL (0.00-0.02); Immature Granulocytes % (auto) 0.3 %; Lymphocytes # (auto) 0.44 K/uL (1.2-3.4); Lymphocytes % (auto) 5.9 %; Mean Corpuscular Hemoglobin 32.9 pg (25.0-34.0); Mean Corpuscular Hgb Conc 33.2 g/dL (32.0-36.0); Mean Corpuscular Volume 99.2 fL (80.0-100.0); Mean Platelet Volume 10.9 fL (9.4-12.3); Monocytes # (auto) 0.49 K/uL (0.24-0.82); Monocytes % (auto) 6.5 %; Neutrophils # (auto) 6.49 K/uL (1.4-6.5); Neutrophils % (auto) 86.4 %; Ovalocytes 1+; Platelet Count 78 K/uL (130-400); RDW Coefficient of Variation 13.7 % (11.5-14.5); RDW Standard Deviation 47.7 fL (36.4-46.3); Red Blood Count 2.55 M/uL (3.93-5.22); White Blood Count 7.51 K/ul (4.8-10.8)
[2022-09-19 14:27] LABS: Anion Gap 21 (3-11); BUN Creatinine Ratio 5.1 (10-20); Blood Urea Nitrogen 79 mg/dl (6-23); Calcium 9.5 mg/dl (8.5-10.1); Carbon Dioxide 23 mmol/L (21-32); Chloride 89 mmol/L (98-107); Est GFR (Non-African American) 2.6 ml/min; Glucose 134 mg/dl (70-99(Fasting)); Potassium 5.9 mmol/L (3.5-5.1); Sodium 133 mmol/L (136-145)
[2022-09-19] MEDS ORDERED: INSULIN HUMAN REGULAR PER UNIT 5 UNITS in SYRINGE 9.9 ML IV STA (14:42)
[2022-09-19] MEDS ORDERED: DEXTROSE 50% 50 ML SYRINGE IV STA (14:42)
[2022-09-19] MEDS ORDERED: CALCIUM GLUCONATE 1,000 MG/60 ML BAG IV STA (14:42)
--- NOTE | 2022-09-19 14:45 | CT Scan Report ---
CT head/brain wo con CLINICAL HISTORY: 36 years-old Female with weakness. Acute weakness TECHNIQUE: Multiple axial CT images of the head were obtained without contrast. A dose lowering tech nique was utilized adhering to the principles of ALARA. COMPARISON: 09/05/22. FINDINGS: No acute intracranial hemorrhage, midline shift, intracranial mass, hydrocephalus, territorial ischem ia or abnormal extra-axial collection. Mildly motion degraded exam. The calvarium is intact. The paranasal sinuses, mastoid air cells, and middle ear cavities are clear . IMPRESSION: No acute intracranial abnormality. ACT 112: Negative or not required by law. The above report was generated using voice recognition software. It may contain grammatical, syntax o r spelling errors. Electronically signed by: Cristhian Copeland M.D. 09/19/2022 2:43 PM
--- NOTE | 2022-09-19 14:51 | Emergency Department Note ---
History of Present Illness General Chief complaint: Fall Stated complaint: FALL, L SHOULDER PAIN, Time Seen by Provider: 09/19/22 12:53 History of Present Illness Provider complaint: Fall Onset (ago): day(s) 1 Location: head, upper extremity and left Maximum Pain Intensity: 10 36-year-old female presents emergency department for fall. Patient is end-stage renal disease on hemodialysis. Patient was initiated ground-level fall out of her bed today and is reporting head pain as well as left shoulder pain. She re ports she is scheduled for surgery on her left shoulder. She denies being on any blood thinners. Patient does note that she has not gone to dialysis since being discharged from the hospital 1 week ago. She states she did not go because she did not have transportation there. Home Medications Medication Instructions Recorded Confirmed Type carvedilol 3.125 mg tablet 3.125 mg PO BID 12/21/19 09/10/22 History hydroxyzine HCl 25 mg tablet 25 mg PO DAILY PRN Anxiety and 04/21/20 09/10/22 History before Dialysis calcium acetate(phosphat bind) 667 2,001 mg PO TIDM 06/22/20 09/10/22 History mg capsule albuterol sulfate 90 mcg/actuation 2 puff inhalation QID PRN 08/01/20 09/10/22 History aerosol inhaler Shortness Of Breath sertraline 100 mg tablet 150 mg PO QAM 08/02/20 09/10/22 History amlodipine 10 mg tablet 10 mg PO HS 08/10/20 09/10/22 History vitamin B complex-vitamin C-folic 1 tab PO QAM 08/10/20 09/10/22 History acid 0.8 mg tablet (Renal Vitamin) cinacalcet 30 mg tablet (Sensipar) 60 mg PO QDD 03/06/21 09/10/22 History lorazepam 0.5 mg tablet 0.5 mg PO DAILY PRN anxiety and 03/06/21 09/10/22 History before dialysis medroxyprogesterone 150 mg/mL 150 mg IM Q90D 03/06/21 09/10/22 History intramuscular suspension (Depo-Provera) gabapentin 400 mg capsule 400 mg PO AMHS 06/27/21 09/10/22 History (Neurontin) dicyclomine 10 mg capsule 10 mg PO QID PRN cyst 01/19/22 09/10/22 History doxepin 100 mg capsule 200 mg PO HS 01/19/22 09/10/22 History mometasone-formoterol HFA 200 2 puff inhalation BID 01/19/22 09/10/22 History mcg-5 mcg/actuation aerosol inhaler (Dulera) omeprazole 20 mg capsule,delayed 20 mg PO AMHS 01/19/22 09/10/22 History release diclofenac sodium 1 % topical gel 2 g EXT TID #100 grams 01/23/22 09/10/22 Rx (Voltaren Arthritis Pain) oxycodone-acetaminophen 5 mg-325 1 tab PO Q12H PRN severe pain #10 03/21/22 09/10/22 Rx mg tablet (Percocet) tabs Allergies Allergy/AdvReac Type Severity Reaction Status Date / Time cefaclor Allergy Intermediate Rash Verified 02/07/22 19:01 amoxicillin AdvReac Intermediate VOMITING Verified 02/07/22 19:01 clavulanic acid AdvReac Intermediate VOMITING Verified 02/07/22 19:01 Past Med/Surg History Medical History Anemia due to end stage renal disease Anxiety Anxiety and depression Asthma "BEEN A WHILE" SINCE USING LAST RESCUE INHALER AVF (arteriovenous fistula) bilt---currently using right for dialysis CKD (chronic kidney disease) stage V requiring chronic dialysis Depression Dialysis patient SATURDAY/SAT/SATURDAY AT [facility] DM2 (diabetes mellitus, type 2) DM2 (diabetes mellitus, type 2) ESRD (end stage renal disease) on dialysis Fistula right arm (currently being used) and left arm FSGS (focal segmental glomerulosclerosis) DX INITIALLY 2012 (CAUSING ESRD 2012) GERD (gastroesophageal reflux disease) History of abnormal cervical Papanicolaou smear HTN (hypertension) Peripheral neuropathy Prolonged QT interval Restless leg syndrome Surgical History H/O eye surgery LASER SURGERY LEFT H/O hernia repair ABDOMINAL WALL H/O knee surgery LEFT KNEE X 2 H/O tubal ligation H/O: X 2 History of cardiac cath 2016 NO STENTS History of cholecystectomy History of colonoscopy History of surgery (~09/09/20) perm cath replacement History of surgery left arm d/t clot in arm from AV fistula use @ [facility] History of tooth extraction three TOOTH Kidney transplant recipient 2014 AT [facility] S/P arteriovenous (AV) fistula creation right arm Family History Grandmother Hx of CABG Mother Diabetes Father Crohn's disease Grandfather (Maternal) Diabetes Uncle Diabetes Grandmother (Maternal) Family history of reaction to anesthesia difficulty waking with colonoscopy Social History Smoking Status: Never smoker Tobacco Type: Cigarettes Cigarettes Per Day: half a pack-she denies; Second Hand Exposure: Yes; Hx Alcohol Use: No Hx Substance Use: No Preferred Language: Colombian Communication Ability: Effective It Systems Manager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 Beliefs That Will Affect Care: None marital status: Single Current Living Situation: Family Current Living Situation Comment: Lives with fiance and kids How many Children do You have: 3 Feels Safe at Home: Yes Assistive Devices: None Physical Exam Vital Signs Vital Signs - 24 hr 09/19/22 12:37 09/19/22 12:37 09/19/22 12:54 Temperature 36.8 C Temperature Source Oral Pulse Rate 90 82 Pulse Rate [Right Finger] 90 Respiratory Rate 12 Blood Pressure 194/91 H Blood Pressure [Left Arm] Blood Pressure Mean 125 Blood Pressure Mean [Left Arm] Pulse Oximetry 97 97 98 Oxygen Delivery Method Room Air Room Air Room Air Sepsis Recent Fever Within 48 Hours No Sepsis New/Unexplained Change in Mental Status No Sepsis Action Taken by Nursing No Action Required 09/19/22 14:42 Temperature Temperature Source Pulse Rate Pulse Rate [Right Finger] 103 H Respiratory Rate 18 Blood Pressure Blood Pressure [Left Arm] 198/98 H Blood Pressure Mean Blood Pressure Mean [Left Arm] 131 Pulse Oximetry Oxygen Delivery Method Sepsis Recent Fever Within 48 Hours Sepsis New/Unexplained Change in Mental Status Sepsis Action Taken by Nursing Physical Exam HENT: Exam performed. -Head: Normocephalic and atraumatic. EYES: Conjunctivae and EOM are normal. Right eye exhibits no discharge. Left eye exhibits no discharge. No scleral icterus. NECK: Normal range of motion. Neck supple. No JVD present. No spinous process tenderness present. No carotid bruit present. No rigidity. No tracheal deviation and normal range of motion present. No Brudzinski's sign and no Kernig's sign noted. CV: Normal rate, regular rhythm, normal heart sounds and intact distal pulses. There is no peripheral edema. Palpable radial pulses bue. PULM/CHEST: Effort normal and breath sounds normal. No respiratory distress. No stridor. She has no wheezes. She has no rales. -Chest Wall: She exhibits no tenderness. ABD: The abdomen is soft. Bowel sounds are normal. She has no distension. No mass is present. There is no tenderness. There is no rebound, no guarding, no Dias's sign and no tenderness at McBurney's point. Rovsig negative MUSC/SKEL: Normal range of motion. There is no peripheral edema or deformity. Pain on palpation of the left shoulder. LYMPH: No cervical adenopathy. NEURO: She is alert and oriented to person, place, and time. She has normal strength. No cranial nerve deficit or sensory deficit. Coordination and gait normal. GCS eye subscore is 4. GCS verbal subscore is 5. GCS motor subscore is 6. Cerebellar tests wnl. Course Course 1253: The patient was evaluated in room C12. A complete history and physical exam was performed Administered Medications Discontinued Medications Dextrose (Dextrose 50% 50 Ml Syringe) 50 ml IV NOW STA Stop: 09/19/22 14:43 Last Admin: 09/19/22 15:05 Dose: 50 ml Documented By: RACHAEL Calcium Gluconate () 1,000 mg in 60 mls @ 240 mls/hr IV NOW STA Stop: 09/19/22 14:56 Last Infusion: 09/19/22 15:22 Dose: 0 mls/hr Documented By: Admin: 09/19/22 15:06 Dose: 240 mls/hr Documented By: RACHAEL Insulin Human Regular 5 units/ (Syringe) 9.9 mls @ 3 mls/sec IV ONE STA Stop: 09/19/22 14:43 Last Admin: 09/19/22 15:06 Dose: 3 mls/sec Documented By: RACHAEL Co-signed By: BIANCA Insulin Human Regular (Novolin-R Insulin Per Unit Charge) Confirm Administered Dose 5 units .ROUTE .STK-MED ONE Stop: 09/19/22 14:55 Last Admin: 09/19/22 15:07 Dose: Not Given Documented By: RACHAEL Lorazepam (Lorazepam 2 Mg/1 Ml Vial) 0.25 mg IV NOW STA Stop: 09/19/22 14:08 Last Admin: 09/19/22 14:18 Dose: 0.25 mg Documented By: RACHAEL Critical Care Time Critical Care Time: Yes Total Critical Care Time: 36 I have personally spent greater than 36 minutes of critical care time in the direct management of this patient. This includes bedside care, interpretation of diagnostic studies, and testing, discussion with consultants, patient, and family members, and other required patient management activities. This 36 minutes is in excess of all separately billable procedures. Medical Decision Making Laboratory Data Attestation: I reviewed the patient's lab results. 09/19/22 Unknown 09/19/22 Unknown Lab Results 09/19/22 09/19/22 Range/Units Unknown Unknown WBC 7.51 (4.8-10.8) K/ul RBC 2.55 L (3.93-5.22) M/uL Hgb 8.4 L (12.0-16.0) g/dl Hct 25.3 L (34.1-44.9) % MCV 99.2 (80.0-100.0) fL MCH 32.9 (25.0-34.0) pg MCHC 33.2 (32.0-36.0) g/dL RDW Std Deviation 47.7 H (36.4-46.3) fL RDW Coeff of Laith 13.7 (11.5-14.5) % Plt Count 78 L (130-400) K/uL MPV 10.9 (9.4-12.3) fL Immature Gran % (Auto) 0.3 % Neut % (Auto) 86.4 % Lymph % (Auto) 5.9 % Evans % (Auto) 6.5 % Eos % (Auto) 0.8 % Baso % (Auto) 0.1 % Neut # (Auto) 6.49 (1.4-6.5) K/uL Lymph # (Auto) 0.44 L (1.2-3.4) K/uL Evans # (Auto) 0.49 (0.24-0.82) K/uL Eos # (Auto) 0.06 (0-0.50) K/uL Baso # (Auto) 0.01 (0-0.2) K/uL Immature Gran # (Auto) 0.02 (0.00-0.02) K/uL Ovalocytes 1+ Sodium 133 L (136-145) mmol/L Potassium 5.9 H (3.5-5.1) mmol/L Chloride 89 L (98-107) mmol/L Carbon Dioxide 23 (21-32) mmol/L Anion Gap 21 H (3-11) BUN 79 H (6-23) mg/dl Creatinine 15.63 H* (0.6-1.2) mg/dl Est Cr Clr Drug Dosing Not Reportable Est GFR ( Amer) 3.0 ml/min Est GFR (Non-Af Amer) 2.6 ml/min BUN/Creatinine Ratio 5.1 L (10-20) Glucose 134 H (70-99(Fasting)) mg/dl Calcium 9.5 (8.5-10.1) mg/dl Imaging Data Attestation: I personally reviewed and interpreted this imaging study as f paulette: Radiologist's Impression: Chest X-Ray 09/19/22 12:55 XR chest 1V portable HISTORY: 36 years-old Female fall acute chest and left upper cavity pain status post fall COMPARISON: Left shoulder radiographs of same day, chest radiograph 09/09/2022 TECHNIQUE: AP view of the chest FINDINGS: Cardiac silhouette is enlarged. Poorly vascular congestion. No pneumothorax, pleural effusion, airspace consolidation or overt pulmonary edema. A vascular graft is again noted within the upper mediastinum. Bones appear grossly intact. IMPRESSION: Cardiomegaly with pulmonary vascular congestion. ACT 112: Negative or not required by law. The above report was generated using voice recognition software. It may contain grammatical, syntax or spelling errors. Electronically signed by: Cristhian Copeland M.D. 09/19/2022 1:35 PM Humerus X-Ray 09/19/22 12:55 XR shoulder LT min 2V routine, XR humerus LT 2V CLINICAL HISTORY: fall. Left arm pain. COMPARISON STUDY: Left shoulder 02/18/2020. FINDINGS: No fracture or dislocation within the left shoulder or left humerus. The left clavicle appears intact. There is a vascular stent seen within the left upper arm. No elbow effusion. IMPRESSION: No fractures within the left shoulder or left humerus. ACT 112: Negative or not required by law. Electronically signed by: Jose Jenkins M.D. 09/19/2022 1:44 PM Shoulder X-Ray 09/19/22 12:55 XR shoulder LT min 2V routine, XR humerus LT 2V CLINICAL HISTORY: fall. Left arm pain. COMPARISON STUDY: Left shoulder 02/18/2020. FINDINGS: No fracture or dislocation within the left shoulder or left humerus. The left clavicle appears intact. There is a vascular stent seen within the left upper arm. No elbow effusion. IMPRESSION: No fractures within the left shoulder or left humerus. ACT 112: Negative or not required by law. Electronically signed by: Jose Jenkins M.D. 09/19/2022 1:[address] 09/19/22 13:11 CT OF THE CERVICAL SPINE WITHOUT CONTRAST CLINICAL HISTORY: Weakness. COMPARISON STUDY: Cervical spine CT January 31, 2022. TECHNIQUE: Helical axial images of the cervical spine were obtained without IV contrast. Sagittal and coronal reconstructions were viewed. Automated exposure control was utilized for the study. A dose lowering technique was utilized a dhering to the principles of ALARA. FINDINGS: There is reversal of the cervical lordosis. This is unchanged since prior CT. Evaluation of the mid to lower cervical spine is suboptimal due to artifact. However, no acute cervical spine fracture is noted. Facet joints are intact. Central canal and neural foramen are suboptimally assessed by CT. Note is made of mild prevertebral edema at the level of the mid cervical spine. There is also mild parapharyngeal edema as well as edema within the left carotid space. No associated fluid collection is identified. IMPRESSION: 1. No acute cervical spine fracture or subluxation. 2. Mild edema within the soft tissues of the neck, including prevertebral edema at the level of the mid cervical spine. This edema is a nonspecific finding. ACT 112: Negative or not required by law. Electronically signed by: Sebastian Mcclain M.D. 09/19/2022 2:[address] 09/19/22 13:11 CT head/brain wo con CLINICAL HISTORY: 36 years-old Female with weakness. Acute weakness TECHNIQUE: Multiple axial CT images of the head were obtained without contrast. A dose lowering technique was utilized adhering to the principles of ALARA. COMPARISON: 09/05/22. FINDINGS: No acute intracranial hemorrhage, midline shift, intracranial mass, hydrocephalus, territorial ischemia or abnormal extra-axial collection. Mildly motion degraded exam. The calvarium is intact. The paranasal sinuses, mastoid air cells, and middle ear cavities are clear. IMPRESSION: No acute intracranial abnormality. ACT 112: Negative or not required by law. The above report was generated using voice recognition software. It may contain grammatical, syntax or spelling errors. Electronically signed by: Cristhian Copeland M.D. 09/19/2022 2:43 PM ECG Data Attestation: I personally reviewed and interpreted this ECG as follows: Indication: + weakness Rate (beats per minute): 90 Rhythm: + normal sinus ECG Intervals/blocks: + Normal QRS, + Prolonged QT and + Normal VT ECG ST segments: + Normal ST segments MDM Narrative Cardiac monitoring: An order was placed for continuous cardiac monitoring. The monitor shows a rate of 90 with sinus rhythm Vital signs stable. Imaging shows no acute traumatic injury. Patient has not gone to dialysis since being discharged 1 week ago. Labs show white blood cell count of 7.5 hemoglobin 8.4 sodium 133 potassium 5.9 BUN 79 creatinine 15.6. Patient treated with calcium gluconate insulin and dextrose for her hyperkalemia. Patient has a history of poor compliance and is thought it would be best if the patient be admitted to the hospital to receive dialysis. [facility] who stated to admit to Dr. Victor. Impression & Plan Hyperkalemia, End-stage renal disease on hemodialysis, Missed dialysis, Prolonged QT interval Discharge Plan Visit Data Chief Complaint: Fall Stated Complaint: FALL, L SHOULDER PAIN, ED Provider: Harsh Stapleton Discharge Problem: Hyperkalemia, End-stage renal disease on hemodialysis, Missed dialysis, Prolo nged QT interval Patient Disposition: Admitted As Inpatient Forms Stand Alone Forms: My ITema Prescriptions Prescriptions: No Action calcium acetate(phosphat bind) 667 mg capsule 2,001 mg PO TIDM Rx Instructions: 3 tabs with meals sertraline 100 mg tablet 150 mg PO QAM Rx Instructions: 1 & 1/2 TABLET DOSE carvedilol 3.125 mg tablet 3.125 mg PO BID hydroxyzine HCl 25 mg tablet 25 mg PO DAILY PRN (Reason: Anxiety and before Dialysis) albuterol sulfate 90 mcg/actuation HFA aerosol inhaler 2 puff INHALATION QID PRN (Reason: Shortness Of Breath) amlodipine 10 mg Tablet 10 mg PO HS Renal Vitamin 0.8 mg Tablet 1 tab PO QAM lorazepam 0.5 mg tablet 0.5 mg PO DAILY PRN (Reason: anxiety and before dialysis) medroxyprogesterone [Depo-Provera] 150 mg/mL suspension 150 mg IM Q90D cinacalcet [Sensipar] 30 mg Tablet 60 mg PO QDD Rx Instructions: Takes with evening meal gabapentin [Neurontin] 400 mg capsule 400 mg PO AMHS oxycodone-acetaminophen [Percocet] 5-325 mg Tablet 1 tab PO Q12H PRN (Reason: severe pain) Qty: 10 0RF dicyclomine 10 mg capsule 10 mg PO QID PRN (Reason: cyst) doxepin 100 mg capsule 200 mg PO HS omeprazole 20 mg capsule,delayed release(DR/EC) 20 mg PO AMHS Dulera 200-5 mcg/actuation HFA aerosol inhaler 2 puff INHALATION BID diclofenac sodium [Voltaren Arthritis Pain] 1 % Gel 2 g EXT TID Qty: 100 0RF Rx Instructions: Left Shoulder Referrals Referrals: Adolph Aldridge MD [Primary Care Provider] -
[2022-09-19] MEDS ORDERED: NovoLIN-R INSULIN PER UNIT CHARGE ONE (14:54)
--- NOTE | 2022-09-19 14:57 | CT Scan Report ---
CT OF THE CERVICAL SPINE WITHOUT CONTRAST CLINICAL HISTORY: Weakness. COMPARISON STUDY: Cervical spine CT January 31, 2022. TECHNIQUE: Helical axial images of the cervical spine were obtained without IV contrast. Sagittal a nd coronal reconstructions were viewed. Automated exposure control was utilized for the study. A do se lowering technique was utilized adhering to the principles of ALARA. FINDINGS: There is reversal of the cervical lordosis. This is unchanged since prior CT. Evaluation of the mid to lower cervical spine is suboptimal due to artifact. However, no acute cervical spine frac ture is noted. Facet joints are intact. Central canal and neural foramen are suboptimally assessed by CT. Note is made of mild prevertebral edema at the level of the mid cervical spine. There is also mi ld parapharyngeal edema as well as edema within the left carotid space. No associated fluid collectio n is identified. IMPRESSION: 1. No acute cervical spine fracture or subluxation. 2. Mild edema within the soft tissues of the neck, including prevertebral edema at the level of the m id cervical spine. This edema is a nonspecific finding. ACT 112: Negative or not required by law. Electronically signed by: Sebastian Mcclain M.D. 09/19/2022 2:54 PM
--- NOTE | 2022-09-19 15:28 | History & Physical Report ---
Date of Service September 19, 2022 Assessment & Plan (1) End-stage renal disease on hemodialysis: (2) Uremic encephalopathy: (3) Hyperkalemia: (4) Missed dialysis: (5) Status post fall: (6) Anemia of chronic disease: (7) HTN (hypertension): (8) DM2 (diabetes mellitus, type 2): (9) Depression with anxiety: Plan Complex 36 y/o non-compliant ESRD HD patient presents s/p fall and elevated creatinine 15.68; K+ 5.9. Stat HD in dialysis suite. Patient with signs of uremic encephalopathy. Imaging negative s/p fall. Pt s/p renal tx 2013. Other history: Depression and anxiety and Dm2. End-stage renal disease on dialysis: Uremic encephalopathy: Hyperkalemia: Missed dialysis: Pt recently admitted and discharged on 09/12 Patient did not have dialysis since discharge Chest x-ray pulmonary vascular congestion Creatinine 15.68 Potassium 5.9; received calcium, insulin and dextrose in ED Stat dialysis treatment prior to admission Stat Nephrology consult Status post fall: Fell at ground level out of bed this AM hitting her face Cervical and spinal CT mild edema of soft tissues Shoulder and humerus x-ray negative Head CT negative Tylenol PRN for pain Anemia of chronic disease: Hemoglobin 8.4 Baseline 8-9; trend in AM. No signs of active bleeding HTN: Takes amlodipine and carvedilol; continue Diabetes mellitus, type II with peripheral neuropathy: Non-insulin dependent Takes gabapentin; continue Diet controlled, well-controlled A1c of 5.9 08/16 Will do ACHS FSBS and place on SSI while here Depression and anxiety: Takes trazodone and sertraline; continue Takes lorazepam prior to dialysis; continue Patient became tearful during our conversation and stated she just needed a break from her home situation. She said she does not like to leave her bedroom due to home complications with her [id number]. Discussed developing additional coping mechanisms that would set her up for a successful situation due to her chronic illness. Patient denies suicidal ideation or suicidal attempt. Lengthy conversation held regarding the severity of her disease and importance of continuation of compliant treatments. Patient is receptive to behavioral health liason. Consult placed. Disposition: PCP: Dr. Aldridge CODE STATUS: Full code VTE prophylaxis: TEDs/SCDs for now; history of GIB A total of 87 minutes was spent with greater than 50% of that time personally reviewing all current laboratory work and diagnostic imaging studies obtained in the ED. Additionally, I was able to review the patients past medication reconciliation and history with direct visualization in the patients chart. Included in the time above, a portion of that time was spent assessing the patient while discussing and collaborating with specialists, if necessary, and making medical decisions regarding orders to be placed. All of the aforementioned completed while collaborating with Dr. Victor for a full treatment plan. Please see his addendum for further details. History of Present Illness Chief Complaint: s/p fall and elevated creatinine Primary Care Provider: Adolph Aldridge MD Ms. Arguello is a 36-year-old female who presented to the [facility] via EMS status post experiencing a fall at home while she was getting out of bed and hit her head on her nightstand. She is not on any anticoagulation. Cervical and spinal CT mild edema of soft tissues, shoulder and humeral x-ray negative. Head CT, negative. Patient is a complex ESRD on HD patient that was recently admitted and discharged on 09/12/2022 and reports she has not reported to dialysis since her discharge. Past medical history significant for hypertension, ESRD on HD history of FSGS status post failed renal transplantation x2, [id number] diabetes mellitus type 2, anxiety and depression, anemia of chronic disease (baseline hemoglobin 8-9), osteoarthritis. Patient unfortunately has had multiple emergency room visits and hospitalizations since 2018. In ED potassium 5.9. Calcium, insulin and dextrose administered in ED. Stat nephrology consult placed and patient directly taken to dialysis suite for urgent treatment session. Patient having signs of uremic encephalopathy with some confusion but is able to answer some questions appropriately. Patient became tearful during our conversation and stated she just needed a break from her home situation. She said she does not like to leave her bedroom due to home complications with her [id number]. Discussed developing additional coping mechanisms that would set her up for a successful situation due to her chronic illness. Patient states that she lives with her , 17-year-old son and twin [id number]. Patient denies suicidal ideation or suicidal attempt. Lengthy conversation held regarding the severity of her disease and importance of continuation of compliant treatments. Patient is receptive to behavioral health liaison conversation. Patient will be admitted for further evaluation and management. Please see A/P for further details. Allergies Allergy/AdvReac Type Severity Reaction Status Date / Time cefaclor Allergy Intermediate Rash Verified 09/19/22 15:39 amoxicillin AdvReac Intermediate VOMITING Verified 09/19/22 15:39 clavulanic acid AdvReac Intermediate VOMITING Verified 09/19/22 15:39 Home Medications Medication Instructions Recorded Confirmed Type carvedilol 3.125 mg tablet 3.125 mg PO BID 12/21/19 09/19/22 History hydroxyzine HCl 25 mg tablet 25 mg PO Q6 PRN Anxiety 04/21/20 09/19/22 History calcium acetate(phosphat bind) 667 2,001 mg PO TIDM 06/22/20 09/19/22 History mg capsule albuterol sulfate 90 mcg/actuation 2 puff inhalation QID PRN 08/01/20 09/19/22 History aerosol inhaler Shortness Of Breath sertraline 100 mg tablet 150 mg PO QAM 08/02/20 09/19/22 History amlodipine 10 mg tablet 10 mg PO HS 08/10/20 09/19/22 History vitamin B complex-vitamin C-folic 1 tab PO QAM 08/10/20 09/19/22 History acid 0.8 mg tablet (Renal Vitamin) cinacalcet 30 mg tablet (Sensipar) 60 mg PO QDD 03/06/21 09/19/22 History lorazepam 0.5 mg tablet 0.5 mg PO Q8 PRN anxiety and 03/06/21 09/19/22 History before dialysis medroxyprogesterone 150 mg/mL 150 mg IM Q90D 03/06/21 09/19/22 History intramuscular suspension (Depo-Provera) gabapentin 400 mg capsule 400 mg PO AMHS 06/27/21 09/19/22 History (Neurontin) dicyclomine 10 mg capsule 10 mg PO QID PRN cyst 01/19/22 09/19/22 History mometasone-formoterol HFA 200 2 puff inhalation BID 01/19/22 09/19/22 History mcg-5 mcg/actuation aerosol inhaler (Dulera) omeprazole 20 mg capsule,delayed 20 mg PO AMHS 01/19/22 09/19/22 History release diclofenac sodium 1 % topical gel 2 g EXT TID #100 grams 01/23/22 09/19/22 Rx (Voltaren Arthritis Pain) albuterol sulfate 2.5 mg/3 mL 2.5 mg inhalation Q4H PRN Wheezing 09/19/22 09/19/22 History (0.083 %) solution for nebulization fluticasone propionate 50 2 spray intranasal DAILY 09/19/22 09/19/22 History mcg/actuation nasal spray,suspension (Flonase Allergy Relief) ondansetron HCl 4 mg tablet 4 mg PO Q6H PRN Nausea 09/19/22 09/19/22 History oxycodone-acetaminophen 5 mg-325 1 tab PO Q8 PRN severe pain 09/19/22 09/19/22 History mg tablet (Percocet) trazodone 100 mg tablet 200 mg PO HS 09/19/22 09/19/22 History Past Med/Surg History Medical History (Updated 09/19/22 @ 16:29 by ANGÉLICA Viveros) Anemia due to end stage renal disease Anemia of chronic disease Anxiety Anxiety and depression Asthma "BEEN A WHILE" SINCE USING LAST RESCUE INHALER AVF (arteriovenous fistula) bilt---currently using right for dialysis CKD (chronic kidney disease) stage V requiring chronic dialysis Depression Depression with anxiety Dialysis patient SATURDAY/SAT/SATURDAY AT [facility] DM2 (diabetes mellitus, type 2) DM2 (diabetes mellitus, type 2) ESRD (end stage renal disease) on dialysis Fistula right arm (currently being used) and left arm FSGS (focal segmental glomerulosclerosis) DX INITIALLY 2012 (CAUSING ESRD 2012) GERD (gastroesophageal reflux disease) History of abnormal cervical Papanicolaou smear HTN (hypertension) Peripheral neuropathy Prolonged QT interval Restless leg syndrome Status post fall Surgical History H/O eye surgery LASER SURGERY LEFT H/O hernia repair ABDOMINAL WALL H/O knee surgery LEFT KNEE X 2 H/O tubal ligation H/O: X 2 History of cardiac cath 2016 NO STENTS History of cholecystectomy History of colonoscopy History of surgery (~09/09/20) perm cath replacement History of surgery left arm d/t clot in arm from AV fistula use @ [facility] History of tooth extraction three TOOTH Kidney transplant recipient 2013 AT [facility] S/P arteriovenous (AV) fistula creation right arm Family History Grandmother Hx of CABG Mother Diabetes Father Crohn's disease Grandfather (Maternal) Diabetes Uncle Diabetes Grandmother (Maternal) Family history of reaction to anesthesia difficulty waking with colonoscopy Social History Smoking Status: Never smoker Tobacco Type: Cigarettes Cigarettes Per Day: half a pack-she denies; Second Hand Exposure: Yes; Hx Alcohol Use: No Hx Substance Use: No Preferred Language: Sinhala Communication Ability: Effective Software Configuration Specialist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 Beliefs That Will Affect Care: None marital status: Single Current Living Situation: Family Current Living Situation Comment: Lives with fiance and kids How many Children do You have: 3 Feels Safe at Home: Yes Assistive Devices: None Review of Systems Review of Systems: Neuro: (+) Falls, trauma, slurred speech HEENT: (-) GARNETT, dizziness, dysphagia, visual or auditory changes CV: (-) CP, palpitations, swelling Resp: (-) SOB GI: (-) appetite changes, N/V/D, bowel changes : (-) urinary changes Skin: (+) peticheal rash, generalized Psych: (+) anxiety, depression Physical Exam Physical Exam: Neuro: AAOx4, PERRLA, no aphagia, memory changes, CNII-XII grossly intact HEENT: head normocephalic, moist mucus membranes. Some soft tissue swelling on her face s/p fall CV: S1/S2, (-) M/G/R, (-) edema, cap refill < 3 seconds Resp: Lungs CTA in all snow. On RA GI: Abdomen S/NT/ND, Ax4 bowel sounds, (-) CVA tenderness Musculoskeletal: 5/5 B/L UE strength, 5/5 B/L LE strength. No gait disturbance Skin: (-) rashes , (-) erythema. (+) generalized peticheal rash Psych: tearful mood Results & Data Results & Data ([facility]) Vital Signs (Past 12 Hours) Vital Signs Temp Pulse Pulse Resp BP BP Pulse Ox 09/19/22 14:42 103 H 18 198/98 H 09/19/22 12:54 82 12 98 09/19/22 12:37 90 97 09/19/22 12:37 36.8 C 90 194/91 H 97 O2 Del Method 09/19/22 14:42 09/19/22 12:54 Room Air 09/19/22 12:37 Room Air 09/19/22 12:37 Room Air Laboratory Results Short CBC 09/19/22 Range/Units Unknown WBC 7.51 (4.8-10.8) K/ul Hgb 8.4 L (12.0-16.0) g/dl Hct 25.3 L (34.1-44.9) % Plt Count 78 L (130-400) K/uL BMP 09/19/22 Unknown Sodium 133 L Potassium 5.9 H Chloride 89 L Carbon Dioxide 23 BUN 79 H Creatinine 15.63 H* Glucose 134 H Calcium 9.5 Diagnostic Findings Chest X-Ray 09/19/22 12:55 XR chest 1V portable HISTORY: 36 years-old Female fall acute chest and left upper cavity pain status post fall COMPARISON: Left shoulder radiographs of same day, chest radiograph 09/09/2022 TECHNIQUE: AP view of the chest FINDINGS: Cardiac silhouette is enlarged. Poorly vascular congestion. No pneumothorax, pleural effusion, airspace consolidation or overt pulmonary edema. A vascular graft is again noted within the upper mediastinum. Bones appear grossly intact. IMPRESSION: Cardiomegaly with pulmonary vascular congestion. ACT 112: Negative or not required by law. The above report was generated using voice recognition software. It may contain grammatical, syntax or spelling errors. Electronically signed by: Cristhian Copeland M.D. 09/19/2022 1:35 PM Humerus X-Ray 09/19/22 12:55 XR shoulder LT min 2V routine, XR humerus LT 2V CLINICAL HISTORY: fall. Left arm pain. COMPARISON STUDY: Left shoulder 02/18/2020. FINDINGS: No fracture or dislocation within the left shoulder or left humerus. The left clavicle appears intact. There is a vascular stent seen within the left upper arm. No elbow effusion. IMPRESSION: No fractures within the left shoulder or left humerus. ACT 112: Negative or not required by law. Electronically signed by: Jose Jenkins M.D. 09/19/2022 1:44 PM Shoulder X-Ray 09/19/22 12:55 XR shoulder LT min 2V routine, XR humerus LT 2V CLINICAL HISTORY: fall. Left arm pain. COMPARISON STUDY: Left shoulder 02/18/2020. FINDINGS: No fracture or dislocation within the left shoulder or left humerus. The left clavicle appears intact. There is a vascular stent seen within the left upper arm. No elbow effusion. IMPRESSION: No fractures within the left shoulder or left humerus. ACT 112: Negative or not required by law. Electronically signed by: Jose Jenkins M.D. 09/19/2022 1:[address] 09/19/22 13:11 CT OF THE CERVICAL SPINE WITHOUT CONTRAST CLINICAL HISTORY: Weakness. COMPARISON STUDY: Cervical spine CT January 31, 2022. TECHNIQUE: Helical axial images of the cervical spine were obtained without IV contrast. Sagittal and coronal reconstructions were viewed. Automated exposure control was utilized for the study. A dose lowering technique was utilized adhering to the principles of ALARA. FINDINGS: There is reversal of the cervical lordosis. This is unchanged since prior CT. Evaluation of the mid to lower cervical spine is suboptimal due to artifact. However, no acute cervical spine fracture is noted. Facet joints are intact. Central canal and neural foramen are suboptimally assessed by CT. Note is made of mild prevertebral edema at the level of the mid cervical spine. There is also mild parapharyngeal edema as well as edema within the left carotid space. No associated fluid collection is identified. IMPRESSION: 1. No acute cervical spine fracture or subluxation. 2. Mild edema within the soft tissues of the neck, including prevertebral edema at the level of the mid cervical spine. This edema is a nonspecific finding. ACT 112: Negative or not required by law. Electronically signed by: Sebastian Mcclain M.D. 09/19/2022 2:[address] 09/19/22 13:11 CT head/brain wo con CLINICAL HISTORY: 36 years-old Female with weakness. Acute weakness TECHNIQUE: Multiple axial CT images of the head were obtained without contrast. A dose lowering technique was utilized adhering to the principles of ALARA. COMPARISON: 09/05/22. FINDINGS: No acute intracranial hemorrhage, midline shift, intracranial mass, hydrocephalus, territorial ischemia or abnormal extra-axial collection. Mildly motion degraded exam. The calvarium is intact. The paranasal sinuses, mastoid air cells, and middle ear cavities are clear. IMPRESSION: No acute intracranial abnormality. ACT 112: Negative or not required by law. The above report was generated using voice recognition software. It may contain grammatical, syntax or spelling errors. Electronically signed by: Cristhian Copeland M.D. 09/19/2022 2:43 PM Code Status & VTE Plan Code Status Full Code in the event of cardiac or respiratory arrest VTE Prophylaxis Plan VTE Prophylaxis will be ordered: Yes Supervising Physician Co-Signing Physician Notes Attending addendum The patient was seen and examined in emergency room She was brought in with a fall and has not had any dialysis since of this month He has had short dialysis today and she complains to have severe abdominal pain with nausea following dialysis On examination Sitting on the bed with acute distress due to abdominal pain and nausea Blood pressure noted to be at 146/103 Chest-clear Heart-S1-S2, regular Abdomen-mildly distended, soft and tender all over, bowel sound present Extremities-negative for any edema Has generalized petechial rash -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, 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 On admission labs, EKG and imaging studies reviewed Status post fall End-stage renal disease on hemodialysis and not been dialyzed since of this month with hyperkalemia and increasing BUN and creatinine Has had short dialysis today We will get PT and OT evaluation and will need possible placement Agree with assessment and plan as outlined above by aMlorie Victor (1) DM2 (diabetes mellitus, type 2) Diabetes mellitus complication status: with unspecified complications Diabetes mellitus correction insulin use: without correction use Qualified Code(s): E11.8 - Type 2 diabetes mellitus with unspecified complications (2) HTN (hypertension) Hypertension type: unspecified Qualified Code(s): I10 - Essential (primary) hypertension
[2022-09-19] MEDS ORDERED: MAGNESIUM HYDROXIDE SUSP 30 ML UDC PO PRN (15:36)
[2022-09-19] MEDS ORDERED: POLYETHYLENE (MIRALAX) 17 GM PACK PO PRN (15:36)
[2022-09-19] MEDS ORDERED: ALUMINUM/MAGNESIUM SUSP 30 ML UDC PO PRN (15:36)
[2022-09-19] MEDS ORDERED: ALBUTEROL HFA 8 GM INHALER INH PRN (16:53)
[2022-09-19] MEDS ORDERED: DICYCLOMINE HCL 10 MG CAP PO PRN (16:53)
[2022-09-19] MEDS ORDERED: ALBUTEROL 0.083% NEBU SOLN 3 ML VIAL INH PRN (16:53)
--- NOTE | 2022-09-19 18:05 | Electrocardiogram Report ---
Test Reason : Blood Pressure : / mmHG Vent. Rate : 090 BPM Atrial Rate : 090 BPM P-R Int : 158 ms QRS Dur : 100 ms QT Int : 410 ms P-R-T Axes : 039 003 030 degrees QTc Int : 501 ms Normal sinus rhythm Poor R wave progression, consider anterior CA vs. lead placement vs. LVH Prolonged QT Abnormal ECG When compared with ECG of 09-SEP-2022 21:53, No significant change was found Confirmed by Daljit Thompson ([id number]) on 09/19/2022 6:05:01 PM Referred By: Confirmed By:Ric Thompson
[2022-09-19] MEDS ORDERED: PHARMACY GLYCEMIC MGMT CONSULT PRN (19:48)
[2022-09-19] MEDS ORDERED: GLUCOSE 40% GEL 15 GM TUBE PO PRN (19:48)
[2022-09-19] MEDS ORDERED: GLUCAGON FOR INJ 1 MG VIAL SQ PRN (19:48)
[2022-09-19] MEDS ORDERED: CARBOHYDRATES FOR HYPOGLYCEMIA PO PRN (19:48)
[2022-09-19] MEDS ORDERED: DEXTROSE 50% 50 ML SYRINGE IV PRN (19:48)
[2022-09-19] MEDS ORDERED: GLUCOSE 10 TAB/TUBE PO PRN (19:48)
[2022-09-19] MEDS ORDERED: HYDROmorphone INJ 0.5 MG/0.5 ML SYR IV STA (19:58)
[2022-09-19] MEDS ORDERED: NON-FORMULARY MEDICATION (Mometasone-Formoterol [Dulera] 200-5 mcg/actuation HFA aerosol i INH SCH (21:00)
[2022-09-19] MEDS ORDERED: carvediloL 3.125 MG TAB PO SCH (21:00)
[2022-09-19] MEDS: CALCIUM ACETATE 667 MG CAP/TAB PO SCH (21:47)
[2022-09-19] MEDS: INSULIN ASPART PER UNIT SC SCH (21:52)
[2022-09-19] MEDS: PANTOprazole 40 MG TAB PO SCH (22:22)
[2022-09-19] MEDS: amLODIPine BESYLATE 5 MG TAB PO SCH (22:22)
[2022-09-19] MEDS: GABAPENTIN 100 MG CAP PO SCH (22:22)
[2022-09-19] MEDS: DICLOFENAC SOD 1% GEL 100 GM TUBE EXT SCH (22:25)
[2022-09-19] MEDS: ONDANSETRON INJ 2 MG/ML 2 ML VIAL IV PRN (22:27)
[2022-09-20] MEDS: oxyCODONE/ACETAMINOPHEN 5mg/325mg TAB PO PRN ×3 (00:31→19:49)
[2022-09-20] MEDS: ACETAMINOPHEN 325 MG TAB PO PRN ×2 (01:52→08:07)
[2022-09-20 06:45] LABS: Hematocrit (blood only) 24.8 % (37.0-47.0); Hemoglobin 8.2 g/dl (12.0-16.0); Mean Corpuscular Hemoglobin 32.7 pg (25.0-34.0); Mean Corpuscular Hgb Conc 33.1 g/dL (32.0-36.0); Mean Corpuscular Volume 98.8 fL (80.0-100.0); Mean Platelet Volume 11.1 fL (9.4-12.4); Platelet Count 81 K/uL (130-400); RDW Coefficient of Variation 13.6 % (11.5-14.5); Red Blood Count 2.51 M/uL (4.20-5.40); White Blood Count 5.74 K/ul (4.8-10.8)
[2022-09-20 07:05] LABS: BUN Creatinine Ratio 4.4 (10-20); Calcium 9.7 mg/dl (8.5-10.1); Creatinine Clr Calc Pharmacy 8.4 ml/min; Est GFR (African American) 4.8 ml/min; Est GFR (Non-African American) 4.2 ml/min; Potassium 5.3 mmol/L (3.5-5.1)
[2022-09-20] MEDS: carvediloL 3.125 MG TAB PO SCH ×2 (07:29→20:01)
[2022-09-20] MEDS: NEPHROCAPS PO SCH (08:08)
[2022-09-20] MEDS: SERTRALINE HCL 50 MG TABLET PO SCH (08:08)
[2022-09-20] MEDS: GABAPENTIN 100 MG CAP PO SCH ×2 (08:10→20:07)
[2022-09-20] MEDS: FLUTICASONE/VILANTEROL 200/25MCG 14 PUFFS/INHALER INH SCH (08:10)
[2022-09-20] MEDS: DICLOFENAC SOD 1% GEL 100 GM TUBE EXT SCH ×3 (08:10→20:06)
[2022-09-20] MEDS: PANTOprazole 40 MG TAB PO SCH ×2 (08:11→20:01)
[2022-09-20] MEDS: CALCIUM ACETATE 667 MG CAP/TAB PO SCH ×3 (08:18→18:27)
[2022-09-20] MEDS: FLUTICASONE PROPIONATE NA SPR 16 GM BTL SCH (08:19)
[2022-09-20] MEDS: INSULIN ASPART PER UNIT SC SCH ×4 (08:22→20:07)
--- NOTE | 2022-09-20 09:12 | Electrocardiogram Report ---
Test Reason : Blood Pressure : / mmHG Vent. Rate : 080 BPM Atrial Rate : 080 BPM P-R Int : 122 ms QRS Dur : 098 ms QT Int : 434 ms P-R-T Axes : 000 -23 148 degrees QTc Int : 500 ms Normal sinus rhythm Possible Left atrial enlargement Nonspecific ST abnormality Prolonged QT Abnormal ECG When compared with ECG of 19-SEP-2022 13:06, No significant change was found Confirmed by Daljit Thompson ([id number]) on 09/20/2022 9:12:11 AM Referred By: REFERRED SELF Confirmed By:Ric Thompson
--- NOTE | 2022-09-20 10:10 | XRay Report ---
XR chest 1V portable HISTORY: 36 years-old Female s/p fall acute chest trauma status post fall COMPARISON: Chest radiograph September 19, 2022 TECHNIQUE: AP view of the chest FINDINGS: Cardiac silhouette is enlarged. Poorly vascular congestion. No pneumothorax, pleural effusion, airspa ce consolidation or overt pulmonary edema. A vascular graft is again noted within the upper mediastin um. Bones appear grossly intact. IMPRESSION: Cardiomegaly with pulmonary vascular congestion. ACT 112: Negative or not required by law. The above report was generated using voice recognition software. It may contain grammatical, syntax o r spelling errors. Electronically signed by: Cristhian Copeland M.D. 09/20/2022 10:09 AM
--- NOTE | 2022-09-20 12:19 | Consultation Report ---
NEPHROLOGY CONSULTATION NOTE DATE OF SERVICE: 09/20/2022. REASON FOR CONSULTATION: Dialysis patient admitted following fall. HISTORY OF PRESENT ILLNESS: The patient is a 36-year-old female with end-stage renal disease, secondary to FSGS, status post failed kidney transplant x2, non- insulin dependent diabetes type 2, end-stage renal disease, on hemodialysis, but very, very noncompliant with dialysis. She presented to the Emergency Department yesterday after experiencing a fall while getting out of bed and hit her head on the nightstand. She is not on any anticoagulation. No significant fractures noted. The patient was found to have high potassium of 5.9 and very high creatinine of 15 as she has missed dialysis since being discharged on 09/12/2022. She has had multiple psychosocial issues at home involving her [id number] and has not been able to cope with the situation and has been noncompliant with dialysis since her discharge. She had 2 hours of dialysis yesterday because of very abnormal labs and she is scheduled to have another dialysis later today. The patient is very, very sleepy and barely talk to me, so history is mostly constructed from the chart. ALLERGIES: List reviewed in detail. MEDICATIONS: Home medication list was as reviewed from the H and P and the medication reconciliation list. PAST MEDICAL AND SURGICAL HISTORY: As detailed in HPI. She also has peripheral neuropathy, prolonged QT interval, restless leg syndrome, status post fall, type 2 diabetes, AV fistula, asthma, anxiety, depression, laser surgery, abdominal wall hernia repair, cholecystectomy, cardiac catheterization, tubal ligation, C- section, kidney transplant x2, AV fistula surgeries, declotting of the AV fistula. FAMILY HISTORY: Positive for CABG, diabetes, Crohn's disease, but no ESRD or dialysis. SOCIAL HISTORY: The patient never smoked. No major alcohol. She is single, lives with her family, with her fiance and kids. She has 3 kids. REVIEW OF SYSTEMS: Unable to obtain as the patient barely talked and is very somnolent. PHYSICAL EXAMINATION: GENERAL: Young white female who is obese. She is awake and alert, but very, very sleepy and not really cooperative with exam. VITAL SIGNS: Blood pressure is 171/96, pulse rate 77, temperature 37 degrees Celsius, 95% on room air. HEENT: Mucous membranes are moist. NECK: Supple. No jugular venous distention. CHEST: Bilateral decreased breath sounds, poor inspiratory effort. CARDIOVASCULAR: S1 and S2, regular. No murmur, gallop or rub. Trace edema. ABDOMEN: Soft, nontender. EXTREMITIES: Show trace edema. PSYCHIATRIC: Very flat affect and did not really respond to my questions. LABORATORY TEST: Blood work from this morning showed a potassium of 5.3, sodium 136, BUN 47, creatinine down to 10.5 from 15, calcium 9.7. Hemoglobin 8.2, WBC count 5.7, platelet count 81,000. Chest x-ray shows cardiomegaly with pulmonary vascular congestion. ASSESSMENT AND PLAN: A 36-year-old female with end-stage renal disease, on chronic hemodialysis, now admitted following a fall. I have been consulted for dialysis management. 1. End-stage renal disease: The biggest issue is her noncompliance for various reasons. She has not had dialysis since 09/12/2022 when she was discharged. Admission labs was quite consistent with missing dialysis with a creatinine of 15 and high potassium and pulmonary vascular congestion causing high blood pressure. She will get another dialysis today for 3 hours 30 minutes and we will try to take about 3.5 kilo. This should help with her blood work as well as pulmonary vascular congestion and to lower the blood pressure. There is no need to add any more blood pressure medication for the time being. 2. Fall. This has already been addressed by primary team. Fortunately, it does not appear she has any major fracture. 3. Depression/anxiety. There are a lot of psychosocial issues involving at home. We will defer this to primary team. Can consider psychiatric evaluation also. Thank you very much for the consult. Job ID: [id number] [facility]
--- NOTE | 2022-09-20 14:44 | Hospitalist Progress Note ---
Date of Service September 20, 2022 Assessment & Plan (1) End-stage renal disease on hemodialysis: (2) Uremic encephalopathy: (3) Hyperkalemia: (4) Missed dialysis: (5) Status post fall: (6) Anemia of chronic disease: (7) HTN (hypertension): (8) DM2 (diabetes mellitus, type 2): (9) Depression with anxiety: Plan Patient is a complex 36 y/o non-compliant ESRD HD patient presents s/p fall and elevated creatinine 15.68; K+ 5.9. Stat HD in dialysis suite. Patient with signs of uremic encephalopathy. Imaging negative s/p fall. Pt s/p renal tx 2013. Other history: Depression and anxiety and Dm2. ESRD Uremic encephalopathy Hyperkalemia due to above Non compliant with dialysis Volume overload due to above --Chest x-ray:Cardiomegaly with pulmonary vascular congestion. Continue dialysis as per nephrology Appreciate nephrology input Monitor potassium, renal function S/P Fall: --Head CT:No acute intracranial abnormality. --Neck CT:No acute cervical spine fracture or subluxation. Mild edema within the soft tissues of the neck, including prevertebral edema at the level of the mid cervical spine. This edema is a nonspecific finding. --Shoulder X ray:No fractures within the left shoulder or left humerus. Fall precautions Hold sedating meds to minimize exacerbation Anemia of chronic disease: Thrombocytopenia Hb at baseline No bleeding issues Monitor CBC HTN: Continue amlodipine, carvedilol DM II with peripheral neuropathy: Non-insulin dependent On gabapentin Diet controlled A1c of 5.9 08/16 Continue Insulin while hospitalized Depression and anxiety: On Trazodone and sertraline Also on lorazepam prior to dialysis Denies suicidal ideation Behavioral health liaison Consulted DVT Px: SCDs Re: Head trauma, Anemia/Thrombocytopenia, H/O GI Bleed CODE STATUS: Full code Admission and Anticipated Discharge Date Admission Date: September 19, 2022 Subjective Patient is seen and examined at bedside Had hemodialysis this morning Very drowsy during my encounter Reports headache from fall prior to admission Denies any chest pain, dyspnea, dizziness, change in vision No other complaints Review of Systems Review of Systems: All systems reviewed & are unremarkable except as noted in Subjective Physical Exam Physical Exam: Physical Exam: Vitals signs as noted above General Appearance:Morbidly Obese, no apparent distress Head: normocephalic, Atraumatic Eyes: normal inspection, EOMI Neck: supple, Trachea midline Respiratory/Chest: Normal breath sounds, CTA, No accessory muscle use Cardiovascular: S1, S2, No murmur Abdomen/GI:Soft, Non tender, Protuberant, Bowel sounds present Extremities/Musculoskeletal:normal inspection, no edema Neurologic/Psych:AAOX3, grossly no focal neurological deficits Skin: normal color, warm Results & Data Results & Data ([facility] [place]) Vital Signs (Past 12 Hours) Vital Signs Temp Pulse Pulse Pulse Resp BP BP 09/20/22 14:00 83 179/108 H 09/20/22 13:30 84 171/100 H 09/20/22 13:00 55 L 190/165 H 09/20/22 12:30 80 196/111 H 09/20/22 12:00 79 186/89 H 09/20/22 07:00 78 09/20/22 11:30 75 173/97 H 09/20/22 11:09 78 171/104 H 09/20/22 10:59 36.5 C 75 09/20/22 07:51 09/20/22 06:36 171/96 H 09/20/22 06:27 37.0 C 77 18 174/111 H 09/20/22 04:07 36.8 C 80 18 151/89 H Pulse Ox O2 Del Method 09/20/22 14:00 09/20/22 13:30 09/20/22 13:00 09/20/22 12:30 09/20/22 12:00 09/20/22 07:00 09/20/22 11:30 09/20/22 11:09 09/20/22 10:59 09/20/22 07:51 Room Air 09/20/22 06:36 09/20/22 06:27 95 Room Air 09/20/22 04:07 94 Room Air Laboratory Results Short CBC 09/20/22 Range/Units 05:48 WBC 5.74 (4.8-10.8) K/ul Hgb 8.2 L (12.0-16.0) g/dl Hct 24.8 L (37.0-47.0) % Plt Count 81 L (130-400) K/uL BMP 09/20/22 05:48 Sodium 136 Potassium 5.3 H Chloride 95 L Carbon Dioxide 25 BUN 47 H D Creatinine 10.58 H* D Glucose 102 H Calcium 9.7 (1) HTN (hypertension) Hypertension type: unspecified Qualified Code(s): I10 - Essential (primary) hypertension (2) DM2 (diabetes mellitus, type 2) Diabetes mellitus manhole builder insulin use: without manhole builder use Diabetes mellitus complication status: with unspecified complications Qualified Code(s): E11.8 - Type 2 diabetes mellitus with unspecified complications
--- NOTE | 2022-09-20 14:52 | Pharmacy Report ---
Pharmacy Glycemic Short Note 2 - Date of Service September 20, 2022 - Glycemic Short BSG Results (Last 24 hours): 09/19/22 09/19/22 09/20/22 19:24 20:10 05:48 Glucose 102 H POC Glucose 89 105 H 09/20/22 08:09 Glucose POC Glucose 125 H OUTPATIENT ANTIDIABETIC REGIMEN: * n/a ASSESSMENT: * Patient is type 2 diabetic, diet controlled admitted s/p fall. Also ESRD on hemodialysis. Pharmacy consulted for glycemic management * Plan to start novolog stress of 1 for now PLAN FOR INPATIENT GLYCEMIC CONTROL: * Hold outpatient oral diabetes medications * Basal insulin * Lantus - hold * Bolus insulin * NovoLog per scale ACHS or Q6hrs while NPO * Goal Range: Low 120 mg/dL - High 150 mg/dL * Correction Factor: 25 mg/dL/unit * Nutritional / Prandial insulin per carb ratio of 1 unit per 20 grams CHO consumed
[2022-09-20] MEDS ORDERED: hydrALAZINE 10 MG TAB PO PRN (16:07)
[2022-09-20] MEDS: ONDANSETRON INJ 2 MG/ML 2 ML VIAL IV PRN (17:24)
[2022-09-20] MEDS: CINACALCET HCL 30 MG TAB PO SCH (18:27)
[2022-09-20] MEDS: amLODIPine BESYLATE 5 MG TAB PO SCH (20:01)
[2022-09-20] MEDS ORDERED: oxyCODONE HCL IR 5 MG TAB (IMMEDIATE RELEASE) PO STA (23:46)
[2022-09-21] MEDS: oxyCODONE/ACETAMINOPHEN 5mg/325mg TAB PO PRN ×2 (05:23→20:26)
[2022-09-21 06:13] LABS: Hematocrit (blood only) 26.4 % (37.0-47.0); Hemoglobin 8.7 g/dl (12.0-16.0); Mean Corpuscular Hemoglobin 32.7 pg (25.0-34.0); Mean Corpuscular Volume 99.2 fL (80.0-100.0); Mean Platelet Volume 11.1 fL (9.4-12.4); Platelet Count 88 K/uL (130-400); RDW Coefficient of Variation 13.3 % (11.5-14.5); RDW Standard Deviation 47.1 fL (36.4-46.3); Red Blood Count 2.66 M/uL (4.20-5.40); White Blood Count 5.73 K/ul (4.8-10.8)
[2022-09-21 06:27] LABS: Creatinine Clr Calc Pharmacy 14.2 ml/min; Est GFR (African American) 9.1 ml/min; Est GFR (Non-African American) 7.8 ml/min
[2022-09-21 06:28] LABS: BUN Creatinine Ratio 3.7 (10-20); Calcium 9.6 mg/dl (8.5-10.1); Potassium 4.1 mmol/L (3.5-5.1)
--- NOTE | 2022-09-21 06:53 | CT Scan Report ---
CT head/brain wo con CLINICAL HISTORY: worsening doe Technique: Contiguous axial CT images of the head were acquired from the base of the skull to the nico larissa without intravenous contrast administration. Images were viewed in brain, subdural and bone [facility]. Automated dose lowering techniques and/or adjustment according to patient size were utilized for this exam. Comparison: Comparison is made to CT head 09/19/2022 Findings: The ventricles, basal cisterns, and cerebral sulci are normal. There is no acute intracranial hemorrh age or evidence of acute territorial infarction. Neither mass effect, shift of the midline structures , nor abnormal extra-axial fluid collections are shown. Imaged portions of the paranasal sinuses and mastoid air cells are clear. The orbits appear normal. There are no acute fractures of the calvaria or scalp swelling. Impression: No acute intracranial hemorrhage, no evidence of acute territorial infarction or other acute intracra nial disease process. ACT 112: Negative or not required by law. Electronically signed by: Mario Holliday M.D. 09/21/2022 6:51 AM
[2022-09-21] MEDS: PANTOprazole 40 MG TAB PO SCH ×2 (08:46→20:16)
[2022-09-21] MEDS: NEPHROCAPS PO SCH (08:46)
[2022-09-21] MEDS: GABAPENTIN 100 MG CAP PO SCH ×2 (08:46→20:18)
[2022-09-21] MEDS: DICLOFENAC SOD 1% GEL 100 GM TUBE EXT SCH ×3 (08:46→20:16)
[2022-09-21] MEDS: carvediloL 3.125 MG TAB PO SCH ×2 (08:47→20:17)
[2022-09-21] MEDS: SERTRALINE HCL 50 MG TABLET PO SCH (08:48)
[2022-09-21] MEDS: FLUTICASONE PROPIONATE NA SPR 16 GM BTL SCH (08:48)
[2022-09-21] MEDS: FLUTICASONE/VILANTEROL 200/25MCG 14 PUFFS/INHALER INH SCH (08:49)
[2022-09-21] MEDS: CALCIUM ACETATE 667 MG CAP/TAB PO SCH ×3 (08:50→17:36)
[2022-09-21] MEDS: INSULIN ASPART PER UNIT SC SCH ×4 (08:54→20:20)
--- NOTE | 2022-09-21 09:26 | Pharmacy Report ---
Pharmacy Glycemic Sign Off Nt - Date of Service September 21, 2022 - Assessment & Plan ASSESSMENT: * Pharmacy was consulted by Malorie Chappell on 09/19 for glycemic control and to write orders per [facility] inpatient glycemic control protocol. * Major changes made by pharmacy to antidiabetic regimen include: * novolog * Patient has been receiving/requiring no insulin since admission * Do not anticipate further changes in patient status that would quickly deteriorate glycemic control (i.e. patient to be NPO for upcoming procedure, steroids tapering, starting tube feedings, etc). * Please see recommendations for outpatient antidiabetic regimen below. PLAN FOR INPATIENT GLYCEMIC CONTROL: No changes needed to current regimen. * No basal insulin warranted * Continue NovoLog per scale ACHS/Q6hrs while NPO * Goal range = 120-160 mg/dl * CF = 25 mg/dl/unit * CR = none * Pharmacy is signing off of glycemic consult and will no longer be making adjustments to inpatient regimen. Please feel free to re-consult if needed. Thank you.
--- NOTE | 2022-09-21 10:39 | Nephrology Progress Note ---
Date of Service September 21, 2022 Assessment & Plan Admission and Anticipated Discharge Date Admission Date: September 19, 2022 Subjective S--says has a lot of pain. barely talks or opens eyes. HEENT: Mucous membranes are moist. NECK: Supple. No jugular venous distention. CHEST: Bilateral decreased breath sounds, poor inspiratory effort. CARDIOVASCULAR: S1 and S2, regular. No murmur, gallop or rub. Trace edema. ABDOMEN: Soft, nontender. EXTREMITIES: Show trace edema. PSYCHIATRIC: Very flat affect and did not really respond to my questions. LABORATORY TEST: reviewed. much better now. Chest x-ray shows cardiomegaly with pulmonary vascular congestion. ASSESSMENT AND PLAN: A 36-year-old female with end-stage renal disease, on chronic hemodialysis, now admitted following a fall. I have been consulted for dialysis management. 1. End-stage renal disease: The biggest issue is her noncompliance for various reasons. She has not had dialysis since 09/12/2022 when she was discharged. Admission labs was quite consistent with missing dialysis with a creatinine of 15 and high potassium and pulmonary vascular congestion causing high blood pressure. She had Dialysis sat and and after that everything is better--creat, Lytes and volume status. There is no need to add any more blood pressure medication for the time being. will plan for Dialysis tomorrow. 4 hrs and take 3.5 kilo off. 2k bath 2. Fall. This has already been addressed by primary team. Fortunately, it does not appear she has any major fracture. 3. Depression/anxiety. There are a lot of psychosocial issues involving at home. consider psychiatric evaluation also. Results & Data ([facility]) Vital Signs (Past 12 Hours) Vital Signs Temp Pulse Resp BP Pulse Ox O2 Del Method 09/21/22 10:32 Nasal Cannula 09/21/22 07:32 36.7 C 82 18 161/93 H 96 Room Air 09/21/22 04:00 37.2 C 85 20 165/81 H 96 Room Air 09/20/22 23:25 37.0 C 80 20 160/84 H 95 Room Air
--- NOTE | 2022-09-21 15:09 | Hospitalist Progress Note ---
Date of Service September 21, 2022 Assessment & Plan (1) End-stage renal disease on hemodialysis: (2) Uremic encephalopathy: (3) Hyperkalemia: (4) Missed dialysis: (5) Status post fall: (6) Anemia of chronic disease: (7) HTN (hypertension): (8) DM2 (diabetes mellitus, type 2): (9) Depression with anxiety: Plan Patient is a complex 36 y/o non-compliant ESRD HD patient presents s/p fall and elevated creatinine 15.68; K+ 5.9. Stat HD in dialysis suite. Patient with signs of uremic encephalopathy. Imaging negative s/p fall. Pt s/p renal tx 2013. Other history: Depression and anxiety and Dm2. ESRD Uremic encephalopathy Hyperkalemia due to above Non compliant with dialysis Volume overload due to above --Chest x-ray:Cardiomegaly with pulmonary vascular congestion. Continue dialysis as per nephrology Appreciate nephrology input Monitor potassium, renal function Planned for repeat dialysis tomorrow S/P Fall: --Head CT:No acute intracranial abnormality. --Neck CT:No acute cervical spine fracture or subluxation. Mild edema within the soft tissues of the neck, including prevertebral edema at the level of the mid cervical spine. This edema is a nonspecific finding. --Shoulder X ray:No fractures within the left shoulder or left humerus. Fall precautions Minimize sedative meds as able Anemia of chronic disease: Thrombocytopenia Hb at baseline No bleeding issues Monitor CBC HTN: Continue amlodipine, carvedilol DM II with peripheral neuropathy: Non-insulin dependent On gabapentin Diet controlled A1c of 5.9 08/16 Continue Insulin while hospitalized Depression and anxiety: On Trazodone and sertraline Also on lorazepam prior to dialysis Denies suicidal ideation Behavioral health liaison Consulted DVT Px: SCDs Re: Head trauma, Anemia/Thrombocytopenia, H/O GI Bleed CODE STATUS: Full code Admission and Anticipated Discharge Date Admission Date: September 19, 2022 Subjective Patient is seen and examined at bedside Reports Scalp pain and generalized ache More alert, awake today Discussed with Nephrology today Denies any chest pain, dyspnea, dizziness, change in vision Review of Systems Review of Systems: All systems reviewed & are unremarkable except as noted in Subjective Physical Exam Physical Exam: Physical Exam: Vitals signs as noted above General Appearance:Morbidly Obese, no apparent distress Head: normocephalic, Atraumatic Eyes: normal inspection, EOMI Neck: supple, Trachea midline Respiratory/Chest: Normal breath sounds, CTA, No accessory muscle use Cardiovascular: S1, S2, No murmur Abdomen/GI:Soft, Non tender, Protuberant, Bowel sounds present Extremities/Musculoskeletal:normal inspection, no edema Neurologic/Psych:AAOX3, grossly no focal neurological deficits Skin: normal color, warm Results & Data Results & Data ([facility] [place]) Vital Signs (Past 12 Hours) Vital Signs Temp Pulse Pulse Resp BP Pulse Ox O2 Del Method 09/21/22 08:00 69 09/21/22 11:26 37.1 C 75 18 163/80 H 94 Room Air 09/21/22 10:32 Nasal Cannula 09/21/22 07:32 36.7 C 82 18 161/93 H 96 Room Air 09/21/22 04:00 37.2 C 85 20 165/81 H 96 Room Air Laboratory Results Short CBC 09/21/22 Range/Units 05:29 WBC 5.73 (4.8-10.8) K/ul Hgb 8.7 L (12.0-16.0) g/dl Hct 26.4 L (37.0-47.0) % Plt Count 88 L (130-400) K/uL BMP 09/21/22 05:29 Sodium 136 Potassium 4.1 D Chloride 95 L Carbon Dioxide 29 BUN 23 D Creatinine 6.29 H* D Glucose 168 H Calcium 9.6 (1) HTN (hypertension) Hypertension type: unspecified Qualified Code(s): I10 - Essential (primary) hypertension (2) DM2 (diabetes mellitus, type 2) Diabetes mellitus retirement insulin use: without termite exterminator helper use Diabetes mellitus complication status: with unspecified complications Qualified Code(s): E11.8 - Type 2 diabetes mellitus with unspecified complications
--- NOTE | 2022-09-21 15:29 | Electrocardiogram Report ---
Test Reason : Blood Pressure : / mmHG Vent. Rate : 084 BPM Atrial Rate : 084 BPM P-R Int : 144 ms QRS Dur : 096 ms QT Int : 420 ms P-R-T Axes : 076 098 005 degrees QTc Int : 496 ms Normal sinus rhythm Rightward axis Prolonged QT Abnormal ECG When compared with ECG of 20-SEP-2022 06:01, Questionable change in QRS axis Confirmed by Daljit Thompson ([id number]) on 09/21/2022 3:29:09 PM Referred By: REFERRED SELF Confirmed By:Ric Thompson
[2022-09-21] MEDS: CINACALCET HCL 30 MG TAB PO SCH (17:37)
[2022-09-21] MEDS: amLODIPine BESYLATE 5 MG TAB PO SCH (20:18)
[2022-09-22 06:24] LABS: BUN Creatinine Ratio 3.9 (10-20); Calcium 8.9 mg/dl (8.5-10.1); Creatinine Clr Calc Pharmacy 10.4 ml/min; Est GFR (African American) 6.3 ml/min; Est GFR (Non-African American) 5.4 ml/min; Potassium 3.9 mmol/L (3.5-5.1)
[2022-09-22] MEDS ORDERED: HEPARIN SOD (PORCINE) 1000 UNIT/ML IV ONE ×2 (07:00→08:43)
[2022-09-22] MEDS ORDERED: EPOETIN ALFA 10,000 UNITS/ML VIAL IV ONE (07:00)
[2022-09-22] MEDS ORDERED: SODIUM CHLORIDE 0.9% 1000ML 1,000 ML IV PRN ×2 (07:00→08:43)
[2022-09-22] MEDS ORDERED: IRON SUCROSE 200 MG in SYRINGE 0 ML IV ONE (07:00)
[2022-09-22] MEDS: INSULIN ASPART PER UNIT SC SCH ×4 (08:10→20:54)
[2022-09-22] MEDS ORDERED: EPOETIN ALFA 20,000 UNITS/ML VIAL IV ONE (08:43)
[2022-09-22] MEDS: GABAPENTIN 100 MG CAP PO SCH ×2 (09:07→20:52)
[2022-09-22] MEDS: CALCIUM ACETATE 667 MG CAP/TAB PO SCH ×3 (09:08→17:55)
[2022-09-22] MEDS: NEPHROCAPS PO SCH (09:08)
[2022-09-22] MEDS: PANTOprazole 40 MG TAB PO SCH ×2 (09:08→20:52)
[2022-09-22] MEDS: FLUTICASONE/VILANTEROL 200/25MCG 14 PUFFS/INHALER INH SCH (09:08)
[2022-09-22] MEDS: SERTRALINE HCL 50 MG TABLET PO SCH (09:08)
[2022-09-22] MEDS: DICLOFENAC SOD 1% GEL 100 GM TUBE EXT SCH ×3 (09:08→20:54)
[2022-09-22] MEDS: FLUTICASONE PROPIONATE NA SPR 16 GM BTL SCH (09:09)
[2022-09-22] MEDS: carvediloL 3.125 MG TAB PO SCH ×2 (09:09→20:53)
[2022-09-22] MEDS: oxyCODONE/ACETAMINOPHEN 5mg/325mg TAB PO PRN ×2 (09:12→20:52)
--- NOTE | 2022-09-22 13:13 | Hospitalist Progress Note ---
Date of Service September 22, 2022 Assessment & Plan (1) End-stage renal disease on hemodialysis: (2) Uremic encephalopathy: (3) Hyperkalemia: (4) Missed dialysis: (5) Status post fall: (6) Anemia of chronic disease: (7) HTN (hypertension): (8) DM2 (diabetes mellitus, type 2): (9) Depression with anxiety: Plan Patient is a complex 36 y/o non-compliant ESRD HD patient presents s/p fall and elevated creatinine 15.68; K+ 5.9. Stat HD in dialysis suite. Patient with signs of uremic encephalopathy. Imaging negative s/p fall. Pt s/p renal tx 2013. Other history: Depression and anxiety and Dm2. ESRD Uremic encephalopathy Hyperkalemia due to above Non compliant with dialysis Volume overload due to above --Chest x-ray:Cardiomegaly with pulmonary vascular congestion. Continue dialysis as per nephrology Appreciate nephrology input Monitor potassium, renal function Had hemodialysis today Needs follow up with Nephrology for HD as outpatient on Saturday S/P Fall: --Head CT:No acute intracranial abnormality. --Neck CT:No acute cervical spine fracture or subluxation. Mild edema within the soft tissues of the neck, including prevertebral edema at the level of the mid cervical spine. This edema is a nonspecific finding. --Shoulder X ray:No fractures within the left shoulder or left humerus. Fall precautions Minimize sedative meds as able Anemia of chronic disease: Thrombocytopenia Hb at baseline No bleeding issues Monitor CBC HTN: Continue amlodipine, carvedilol BP better DM II with peripheral neuropathy: Non-insulin dependent On gabapentin Diet controlled A1c of 5.9 08/16 Continue Insulin while hospitalized Depression and anxiety: On Trazodone and sertraline Also on lorazepam prior to dialysis Denies suicidal ideation Behavioral health liaison Consulted DVT Px: SCDs Re: Head trauma, Anemia/Thrombocytopenia, H/O GI Bleed CODE STATUS: Full code Admission and Anticipated Discharge Date Admission Date: September 19, 2022 Subjective Patient is seen and examined at bedside Having hemodialysis during my encounter Feels anxious during HD-usual for her No new complaints BP better Discussed with Nephrology today Denies any chest pain, dyspnea, dizziness, change in vision Review of Systems Review of Systems: All systems reviewed & are unremarkable except as noted in Subjective Physical Exam Physical Exam: Physical Exam: Vitals signs as noted above General Appearance:Morbidly Obese, no apparent distress Head: normocephalic, Atraumatic Eyes: normal inspection, EOMI Neck: supple, Trachea midline Respiratory/Chest: Normal breath sounds, CTA, No accessory muscle use Cardiovascular: S1, S2, No murmur Abdomen/GI:Soft, Non tender, Protuberant, Bowel sounds present Extremities/Musculoskeletal:normal inspection, no edema Neurologic/Psych:AAOX3, grossly no focal neurological deficits Skin: normal color, warm Results & Data Results & Data ([facility]) Vital Signs (Past 12 Hours) Vital Signs Temp Pulse Pulse Pulse Resp BP BP 09/22/22 12:30 79 132/81 09/22/22 12:00 81 140/84 09/22/22 11:30 80 156/87 H 09/22/22 11:00 77 161/87 H 09/22/22 10:30 80 185/88 H 09/22/22 10:00 88 187/76 H 09/22/22 09:30 72 154/80 H 09/22/22 09:29 72 137/92 09/22/22 09:21 36.6 C 75 09/22/22 07:33 36.9 C 69 18 157/83 H 09/22/22 07:00 75 09/22/22 02:44 36.6 C 75 18 151/83 H Pulse Ox O2 Del Method 09/22/22 12:30 09/22/22 12:00 09/22/22 11:30 09/22/22 11:00 09/22/22 10:30 09/22/22 10:00 09/22/22 09:30 09/22/22 09:29 09/22/22 09:21 09/22/22 07:33 96 Room Air 09/22/22 07:00 09/22/22 02:44 96 Room Air Laboratory Results BMP 09/22/22 05:20 Sodium 133 L Potassium 3.9 Chloride 93 L Carbon Dioxide 29 BUN 33 H Creatinine 8.51 H* D Glucose 132 H Calcium 8.9 (1) HTN (hypertension) Hypertension type: unspecified Qualified Code(s): I10 - Essential (primary) hypertension (2) DM2 (diabetes mellitus, type 2) Diabetes mellitus terminal gauger insulin use: without terminal gauger use Diabetes mellitus complication status: with unspecified complications Qualified Code(s): E11.8 - Type 2 diabetes mellitus with unspecified complications
[2022-09-22] MEDS: ACETAMINOPHEN 325 MG TAB PO PRN (13:38)
--- NOTE | 2022-09-22 16:24 | Dialysis Progress Note ---
Date of Service September 22, 2022 Assessment & Plan (1) End-stage renal disease on hemodialysis: Plan: HD today and then resume OP schedule on 09/24; tolerated 2.9L UF today; resume routine OP bp meds and dialysis meds after d/c (2) Anemia of chronic disease: Plan: hgb stable in 8s; gave max dose epo ; follow as Op (3) Thrombocytopenia: Plan: plts running in 80s, markedly diminished this admission versus last one earlier this month when they were low but not <100K; monitor as OP; used less heparin today w/o issue Admission and Anticipated Discharge Date Admission Date: September 19, 2022 Subjective seen on HD ; tolerating treatment well; contracts to attend as OP next week; denies sob, n/v, uncontrolle dpain Review of Systems Review of Systems: All systems reviewed & are unremarkable except as noted in HPI & below Physical Exam Constitutional: well developed and well nourished Eyes: EOM intact bilaterally ENMT: Ears: no external ear abnormality Nose: no external nose abnormality (apart from smalllacerations) Mouth: + dry oral mucous membranes Neck: no nuchal rigidity Respiratory: normal respiratory effort Auscultation: + diminished lung sounds Cardiovascular: Rate/Rhythm: regular rate and regular rhythm Extremities: + AV fistula; no edema Gastrointestinal (Abdomen): Inspection/Auscultation: normal bowel sounds Percussion/Palpation: abdomen soft; abdomen nontender Musculoskeletal: Extremities: strength 5/5 throughout Skin: no rashes, warm and dry Neurologic: sandy, fluent speech, no tremor Results & Data ([facility]) Vital Signs (Past 12 Hours) Vital Signs Temp Pulse Pulse Pulse Pulse Resp BP 09/22/22 16:08 37.0 C 73 18 09/22/22 16:00 76 09/22/22 12:57 36.7 C 89 09/22/22 12:30 79 132/81 09/22/22 12:00 81 140/84 09/22/22 11:30 80 156/87 H 09/22/22 11:00 77 161/87 H 09/22/22 10:30 80 185/88 H 09/22/22 10:00 88 187/76 H 09/22/22 09:30 72 154/80 H 09/22/22 09:29 72 137/92 09/22/22 09:21 36.6 C 75 09/22/22 07:33 36.9 C 69 18 09/22/22 07:00 75 BP Pulse Ox O2 Del Method 09/22/22 16:08 147/84 H 97 Room Air 09/22/22 16:00 09/22/22 12:57 145/82 H 09/22/22 12:30 09/22/22 12:00 09/22/22 11:30 09/22/22 11:00 09/22/22 10:30 09/22/22 10:00 09/22/22 09:30 09/22/22 09:29 09/22/22 09:21 09/22/22 07:33 157/83 H 96 Room Air 09/22/22 07:00 Laboratory Results reviewed
[2022-09-22] MEDS: DOCUSATE SODIUM 100 MG CAP PO SCH ×2 (17:54→20:53)
[2022-09-22] MEDS: CINACALCET HCL 30 MG TAB PO SCH (17:55)
[2022-09-22] MEDS: amLODIPine BESYLATE 5 MG TAB PO SCH (20:53)
[2022-09-23 08:19] LABS: Hematocrit (blood only) 28.3 % (37.0-47.0); Hemoglobin 9.4 g/dl (12.0-16.0); Mean Corpuscular Hemoglobin 32.1 pg (25.0-34.0); Mean Corpuscular Hgb Conc 33.2 g/dL (32.0-36.0); Mean Corpuscular Volume 96.6 fL (80.0-100.0); Mean Platelet Volume 10.8 fL (9.4-12.4); Nucleated RBC # (auto) 0.02 K/uL (0-0.12); Nucleated RBC % (auto) 0.2 %; Platelet Count 151 K/uL (130-400); RDW Coefficient of Variation 13.3 % (11.5-14.5); RDW Standard Deviation 46.2 fL (36.4-46.3); Red Blood Count 2.93 M/uL (4.20-5.40); White Blood Count 13.15 K/ul (4.8-10.8)
[2022-09-23] MEDS: GABAPENTIN 100 MG CAP PO SCH ×2 (08:53→19:59)
[2022-09-23] MEDS: PANTOprazole 40 MG TAB PO SCH ×2 (08:53→19:58)
[2022-09-23] MEDS: DOCUSATE SODIUM 100 MG CAP PO SCH ×2 (08:53→19:58)
[2022-09-23] MEDS: carvediloL 3.125 MG TAB PO SCH ×2 (08:53→19:59)
[2022-09-23] MEDS: FLUTICASONE/VILANTEROL 200/25MCG 14 PUFFS/INHALER INH SCH (08:54)
[2022-09-23] MEDS: NEPHROCAPS PO SCH (08:54)
[2022-09-23] MEDS: SERTRALINE HCL 50 MG TABLET PO SCH (08:54)
[2022-09-23] MEDS: CALCIUM ACETATE 667 MG CAP/TAB PO SCH ×3 (08:54→17:22)
[2022-09-23] MEDS: DICLOFENAC SOD 1% GEL 100 GM TUBE EXT SCH ×3 (08:54→20:00)
[2022-09-23] MEDS: FLUTICASONE PROPIONATE NA SPR 16 GM BTL SCH (08:56)
[2022-09-23] MEDS: ACETAMINOPHEN 325 MG TAB PO PRN ×2 (09:04→19:57)
[2022-09-23] MEDS: INSULIN ASPART PER UNIT SC SCH ×4 (09:04→21:38)
--- NOTE | 2022-09-23 14:36 | Hospitalist Progress Note ---
Date of Service September 23, 2022 Assessment & Plan (1) End-stage renal disease on hemodialysis: (2) Uremic encephalopathy: (3) Hyperkalemia: (4) Missed dialysis: (5) Status post fall: (6) Anemia of chronic disease: (7) HTN (hypertension): (8) DM2 (diabetes mellitus, type 2): (9) Depression with anxiety: Plan Patient is a complex 36 y/o non-compliant ESRD HD patient presents s/p fall and elevated creatinine 15.68; K+ 5.9. Stat HD in dialysis suite. Patient with signs of uremic encephalopathy. Imaging negative s/p fall. Pt s/p renal tx 2013. Other history: Depression and anxiety and Dm2. ESRD Uremic encephalopathy Hyperkalemia due to above Non compliant with dialysis Volume overload due to above --Chest x-ray:Cardiomegaly with pulmonary vascular congestion. Continue dialysis as per nephrology Appreciate nephrology input Monitor potassium, renal function Plan for discharge after hemodialysis tomorrow S/P Fall: --Head CT:No acute intracranial abnormality. --Neck CT:No acute cervical spine fracture or subluxation. Mild edema within the soft tissues of the neck, including prevertebral edema at the level of the mid cervical spine. This edema is a nonspecific finding. --Shoulder X ray:No fractures within the left shoulder or left humerus. Fall precautions Minimize sedative meds as able Anemia of chronic disease: Thrombocytopenia Hb at baseline No bleeding issues Monitor CBC HTN: Continue amlodipine, carvedilol BP better controlled DM II with peripheral neuropathy: Non-insulin dependent On gabapentin Diet controlled A1c of 5.9 08/16 Continue Insulin while hospitalized Depression and anxiety: On Trazodone and sertraline Also on lorazepam prior to dialysis Denies suicidal ideation Behavioral health liaison Consulted DVT Px: SCDs Re: Head trauma, Anemia/Thrombocytopenia, H/O GI Bleed CODE STATUS: Full code Admission and Anticipated Discharge Date Admission Date: September 19, 2022 Subjective Patient is seen and examined at bedside No new complaints BP much improved Denies any chest pain, dyspnea, dizziness, change in vision States having no transportation for HD tomorrow Review of Systems Review of Systems: All systems reviewed & are unremarkable except as noted in Subjective Physical Exam Physical Exam: Physical Exam: Vitals signs as noted above General Appearance:Morbidly Obese, no apparent distress Head: normocephalic, Atraumatic Eyes: normal inspection, EOMI Neck: supple, Trachea midline Respiratory/Chest: Normal breath sounds, CTA, No accessory muscle use Cardiovascular: S1, S2, No murmur Abdomen/GI:Soft, Non tender, Protuberant, Bowel sounds present Extremities/Musculoskeletal:normal inspection, no edema Neurologic/Psych:AAOX3, grossly no focal neurological deficits Skin: normal color, warm Results & Data Results & Data ([facility]) Vital Signs (Past 12 Hours) Vital Signs Temp Pulse Resp BP Pulse Ox O2 Del Method 09/23/22 12:01 36.7 C 77 20 133/81 98 Room Air 09/23/22 07:42 37.2 C 81 20 152/87 H 100 Room Air Laboratory Results Short CBC 09/23/22 Range/Units 07:22 WBC 13.15 H (4.8-10.8) K/ul Hgb 9.4 L (12.0-16.0) g/dl Hct 28.3 L (37.0-47.0) % Plt Count 151 (130-400) K/uL (1) HTN (hypertension) Hypertension type: unspecified Qualified Code(s): I10 - Essential (primary) hypertension (2) DM2 (diabetes mellitus, type 2) Diabetes mellitus retirement insulin use: without value stream manager use Diabetes mellitus complication status: with unspecified complications Qualified Code(s): E11.8 - Type 2 diabetes mellitus with unspecified complications
[2022-09-23 15:48] LABS: Calcium 8.9 mg/dl (8.5-10.1); Potassium 4.5 mmol/L (3.5-5.1)
[2022-09-23 15:55] LABS: BUN Creatinine Ratio 3.3 (10-20); Creatinine Clr Calc Pharmacy 14.7 ml/min; Est GFR (African American) 9.5 ml/min; Est GFR (Non-African American) 8.2 ml/min
[2022-09-23] MEDS: CINACALCET HCL 30 MG TAB PO SCH (17:21)
[2022-09-23] MEDS: ONDANSETRON INJ 2 MG/ML 2 ML VIAL IV PRN (19:57)
[2022-09-23] MEDS: amLODIPine BESYLATE 5 MG TAB PO SCH (19:58)
--- NOTE | 2022-09-23 21:58 | Communication Note ---
Date of Service: September 23, 2022 Made aware by RN of temperature of 37.8. Patient complaining of headache and left-sided neck pain. No ear discharge as per RN. CT head initial read: No acute or focal intracranial abnormality. No change from 09/21/2022. Soft tissue neck CT initial read: Abnormal subcutaneous edema along the left posterolateral aspect of the neck from the level of the ear through the base of the neck. No soft tissue air. No focal soft tissue abscess. The edema is not centered around the parotid gland in the parotid gland is not enlarged or hyperemic to indicate parotitis. There is some asymmetric enlargement of the left sternocleidomastoid muscle in the region of the edema. There are a few mildly prominent left posterior cervical lymph nodes. The airways of a normal appearance. No abnormal fluid is seen in the paranasal sinuses, middle ear cavities or mastoid air cells. WBC in a.m. noted to be 13 Procalcitonin noted to be elevated AP Sepsis secondary to left neck cellulitis/myositis CS, Doxycycline ENT consult in a.m. for left neck cellulitis/myositis Will relay to AM provider.
[2022-09-23] MEDS ORDERED: OPTIRAY 350 100ml IV ONE (22:22)
[2022-09-23] MEDS ORDERED: DOXYCYCLINE HYCLATE 100 MG in DEXTROSE 5% 100 ML IV STA (23:44)
[2022-09-24] MEDS: ACETAMINOPHEN 325 MG TAB PO PRN (03:25)
[2022-09-24] MEDS: oxyCODONE/ACETAMINOPHEN 5mg/325mg TAB PO PRN ×2 (05:42→21:11)
--- NOTE | 2022-09-24 06:44 | CT Scan Report ---
CT head/brain wo con CLINICAL HISTORY: 36 years-old Female with doe. Acute headache TECHNIQUE: Multiple axial CT images of the head were obtained without contrast. A dose lowering tech nique was utilized adhering to the principles of ALARA. CT DOSE: CT soft tissue neck of same day, head CT 09/21/2022 COMPARISON: None. FINDINGS: No acute intracranial hemorrhage, midline shift, intracranial mass, hydrocephalus, territorial ischem ia or abnormal extra-axial collection. The calvarium is intact. The paranasal sinuses, mastoid air cells, and middle ear cavities are clear . IMPRESSION: No acute intracranial abnormality. ACT 112: Negative or not required by law. The above report was generated using voice recognition software. It may contain grammatical, syntax o r spelling errors. Electronically signed by: Cristhian Copeland M.D. 09/24/2022 6:43 AM
--- NOTE | 2022-09-24 07:20 | CT Scan Report ---
CT soft tissue neck w con HISTORY: neck pain, fever, abn cerv ct 09/19 TECHNIQUE: Multiaxial CT images of the neck were performed on the intravenous administration of contr ast and reformatted in the sagittal and coronal plane. COMPARISON STUDY: Cervical spine CT 09/19/2022. FINDINGS: The visualized brain parenchyma and orbits are unremarkable. Subcutaneous fat stranding, sk in thickening, and mild left cervical lymphadenopathy is noted. No sylvian prevertebral edema. The [facility] mucosal airways services are intact. Normal thyroid gland. There is a stent within the left brach iocephalic vein. No masses or abscess identified within the neck. The parotid and submandibular gland s are symmetric. The major cervical vessels enhance normally. The lung apices are clear. No acute fra ctures identified. The left sternocleidomastoid muscle is asymmetrically enlarged and mildly edematou s. IMPRESSION: 1. Asymmetric subcutaneous fat stranding/edema with left neck skin thickening and mild left cervical lymphadenopathy. The left sternocleidomastoid muscle is also edematous and mildly enlarged. This coul d be due to a cellulitis or less likely posttraumatic changes. 2. No abscess identified. ACT 112: Negative or not required by law. Electronically signed by: Jose Jenkins M.D. 09/24/2022 7:17 AM
[2022-09-24] MEDS ORDERED: HEPARIN SOD (PORCINE) 1000 UNIT/ML IV ONE (07:47)
[2022-09-24] MEDS ORDERED: EPOETIN ALFA 10,000 UNITS/ML VIAL IV ONE (07:47)
[2022-09-24] MEDS ORDERED: SODIUM CHLORIDE 0.9% 1000ML 1,000 ML IV PRN (07:47)
[2022-09-24] MEDS: INSULIN ASPART PER UNIT SC SCH ×4 (08:11→21:04)
[2022-09-24] MEDS: FLUTICASONE PROPIONATE NA SPR 16 GM BTL SCH (08:12)
[2022-09-24] MEDS: GABAPENTIN 100 MG CAP PO SCH ×2 (08:12→21:03)
[2022-09-24] MEDS: DOCUSATE SODIUM 100 MG CAP PO SCH ×2 (08:12→21:03)
[2022-09-24] MEDS: CALCIUM ACETATE 667 MG CAP/TAB PO SCH ×3 (08:12→17:23)
[2022-09-24] MEDS: SERTRALINE HCL 50 MG TABLET PO SCH (08:12)
[2022-09-24] MEDS: PANTOprazole 40 MG TAB PO SCH ×2 (08:12→21:03)
[2022-09-24] MEDS: NEPHROCAPS PO SCH (08:13)
[2022-09-24] MEDS: FLUTICASONE/VILANTEROL 200/25MCG 14 PUFFS/INHALER INH SCH (08:13)
[2022-09-24] MEDS: DICLOFENAC SOD 1% GEL 100 GM TUBE EXT SCH ×3 (08:13→21:04)
[2022-09-24] MEDS ORDERED: DOXYCYCLINE HYCLATE 100 MG CAP PO SCH (09:00)
[2022-09-24] MEDS: HEPARIN SOD (PORCINE) 1000 UNIT/ML IV SCH ×3 (10:24→15:44)
[2022-09-24] MEDS: hydrOXYzine HCl 25 MG TAB PO PRN (10:41)
[2022-09-24] MEDS: carvediloL 3.125 MG TAB PO SCH ×2 (13:17→21:04)
[2022-09-24] MEDS ORDERED: MoRPHine SULFATE 2 MG/ML CARP IV ONE (13:26)
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
--- NOTE | 2022-09-24 15:24 | Hospitalist Progress Note ---
Date of Service September 24, 2022 Assessment & Plan (1) End-stage renal disease on hemodialysis: (2) Uremic encephalopathy: (3) Hyperkalemia: (4) Missed dialysis: (5) Status post fall: (6) Anemia of chronic disease: (7) HTN (hypertension): (8) DM2 (diabetes mellitus, type 2): (9) Depression with anxiety: Plan Patient is a complex 36 y/o non-compliant ESRD HD patient presents s/p fall and elevated creatinine 15.68; K+ 5.9. Stat HD in dialysis suite. Patient with signs of uremic encephalopathy. Imaging negative s/p fall. Pt s/p renal tx 2013. Other history: Depression and anxiety and Dm2. ESRD Uremic encephalopathy Hyperkalemia due to above Non compliant with dialysis Volume overload due to above --Chest x-ray:Cardiomegaly with pulmonary vascular congestion. Continue dialysis as per nephrology Appreciate nephrology input Monitor potassium, renal function Had hemodialysis today S/P Fall: H/O recurrent falls which she attributes to broken bed Denies any domestic abuse. Also denies any safety concerns --Head CT:No acute intracranial abnormality. --Neck CT:No acute cervical spine fracture or subluxation. Mild edema within the soft tissues of the neck, including prevertebral edema at the level of the mid cervical spine. This edema is a nonspecific finding. --Shoulder X ray:No fractures within the left shoulder or left humerus. Fall precautions Minimize sedative meds as able Possible Neck Trauma Vs Cellulitis --Repeat CT head:No acute intracranial abnormality. --Neck CT:Asymmetric subcutaneous fat stranding/edema with left neck skin thickening and mild left cervical lymphadenopathy. The left sternocleidomastoid muscle is also edematous and mildly enlarged. This could be due to a cellulitis or less likely posttraumatic changes. No abscess identified. --Continue Doxycycline Anemia of chronic disease: Thrombocytopenia Hb at baseline No bleeding issues Monitor CBC HTN: Continue amlodipine, carvedilol Monitor BP DM II with peripheral neuropathy: Non-insulin dependent On gabapentin Diet controlled A1c of 5.9 08/16 Continue Insulin while hospitalized Depression and anxiety: On Trazodone and sertraline Also on lorazepam prior to dialysis Denies suicidal ideation Appreciate Psychiatry Input DVT Px: SCDs Re: Head trauma, Anemia/Thrombocytopenia, H/O GI Bleed CODE STATUS: Full code Admission and Anticipated Discharge Date Admission Date: September 19, 2022 Subjective Patient is seen and examined at bedside States having left sided neck pain Had hemodialysis today Also reports headache Denies any chest pain, dyspnea, dizziness, change in vision Review of Systems Review of Systems: All systems reviewed & are unremarkable except as noted in Subjective Physical Exam Physical Exam: Physical Exam: Vitals signs as noted above General Appearance:Morbidly Obese, no apparent distress Head: normocephalic, Atraumatic Eyes: normal inspection, EOMI Neck: supple, Trachea midline, L erythema, tender Respiratory/Chest: Normal breath sounds, CTA, No accessory muscle use Cardiovascular: S1, S2, No murmur Abdomen/GI:Soft, Non tender, Protuberant, Bowel sounds present Extremities/Musculoskeletal:normal inspection, no edema Neurologic/Psych:AAOX3, grossly no focal neurological deficits Skin: normal color, warm Results & Data Results & Data ([facility] [place]) Vital Signs (Past 12 Hours) Vital Signs Temp Pulse Pulse Pulse Resp BP BP 09/24/22 14:55 37.8 C H 89 18 101/70 09/24/22 12:03 36.3 C L 86 124/29 L 09/24/22 12:00 83 105/55 L 09/24/22 11:30 95 H 108/73 09/24/22 11:00 96 H 119/79 09/24/22 10:30 92 H 149/95 H 09/24/22 10:00 79 130/111 H 09/24/22 09:30 87 139/95 09/24/22 09:03 85 119/65 09/24/22 08:54 36.3 C L 87 09/24/22 07:42 36.8 C 84 18 138/88 09/24/22 07:15 87 Pulse Ox O2 Del Method 09/24/22 14:55 97 Room Air 09/24/22 12:03 09/24/22 12:00 09/24/22 11:30 09/24/22 11:00 09/24/22 10:30 09/24/22 10:00 09/24/22 09:30 09/24/22 09:03 09/24/22 08:54 09/24/22 07:42 93 Room Air 09/24/22 07:15 Laboratory Results [facility] 09/23/22 07:22 Sodium 139 Potassium 4.5 Chloride 98 Carbon Dioxide 23 BUN 20 Creatinine 6.04 H* D Glucose 134 H Calcium 8.9 (1) HTN (hypertension) Hypertension type: unspecified Qualified Code(s): I10 - Essential (primary) hypertension (2) DM2 (diabetes mellitus, type 2) 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
[2022-09-24 15:57] LABS: Hematocrit (blood only) 29.8 % (37.0-47.0); Hemoglobin 9.8 g/dl (12.0-16.0); Mean Corpuscular Hemoglobin 32.7 pg (25.0-34.0); Mean Corpuscular Hgb Conc 32.9 g/dL (32.0-36.0); Mean Corpuscular Volume 99.3 fL (80.0-100.0); Mean Platelet Volume 10.9 fL (9.4-12.4); Nucleated RBC # (auto) 0.04 K/uL (0-0.12); Nucleated RBC % (auto) 0.2 %; Platelet Count 148 K/uL (130-400); RDW Coefficient of Variation 14.2 % (11.5-14.5); RDW Standard Deviation 49.8 fL (36.4-46.3); White Blood Count 23.78 K/ul (4.8-10.8)
[2022-09-24 16:20] LABS: BUN Creatinine Ratio 3.6 (10-20); Calcium 9.1 mg/dl (8.5-10.1); Creatinine Clr Calc Pharmacy 20.1 ml/min; Potassium 3.9 mmol/L (3.5-5.1)
[2022-09-24 16:27] LABS: Basophils # (auto) 0.06 K/uL (0-0.2); Basophils % (auto) 0.3 %; Eosinophils # (auto) 0.03 K/uL (0-0.50); Eosinophils % (auto) 0.1 %; Immature Granulocytes # (auto) 0.29 K/uL (0.01-0.20); Immature Granulocytes % (auto) 1.2 %; Lymphocytes # (auto) 0.49 K/uL (1.2-3.4); Lymphocytes % (auto) 2.1 %; Monocytes # (auto) 0.97 K/uL (0.11-0.59); Monocytes % (auto) 4.1 %; Neutrophils # (auto) 21.94 K/uL (1.40-6.50); Neutrophils % (auto) 92.2 %; Ovalocytes 1+; Toxic Vacuolation 1+
[2022-09-24] MEDS ORDERED: DAPTOmycin 300 MG in SYRINGE 0 ML IV SCH (17:15)
--- NOTE | 2022-09-24 17:17 | Communication Note ---
Date of Service: September 24, 2022 Given worsening leukocytosis, will transition doxycycline to daptomycin
[2022-09-24] MEDS: CINACALCET HCL 30 MG TAB PO SCH ×2 (17:24→17:30)
[2022-09-24] MEDS: DAPTOmycin 300 MG in SYRINGE 0 ML IV SCH ×2 (18:07→18:08)
[2022-09-24] MEDS: amLODIPine BESYLATE 5 MG TAB PO SCH (21:03)
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
[2022-09-25] MEDS: INSULIN ASPART PER UNIT SC SCH ×4 (08:40→22:42)
[2022-09-25] MEDS: CALCIUM ACETATE 667 MG CAP/TAB PO SCH ×3 (08:41→17:21)
[2022-09-25] MEDS: DOCUSATE SODIUM 100 MG CAP PO SCH ×2 (08:42→22:30)
[2022-09-25] MEDS: DICLOFENAC SOD 1% GEL 100 GM TUBE EXT SCH ×3 (08:42→22:30)
[2022-09-25] MEDS: FLUTICASONE PROPIONATE NA SPR 16 GM BTL SCH (08:42)
[2022-09-25] MEDS: FLUTICASONE/VILANTEROL 200/25MCG 14 PUFFS/INHALER INH SCH (08:43)
[2022-09-25] MEDS: PANTOprazole 40 MG TAB PO SCH ×2 (08:43→22:32)
[2022-09-25] MEDS: SERTRALINE HCL 50 MG TABLET PO SCH (08:43)
[2022-09-25] MEDS: NEPHROCAPS PO SCH (08:43)
[2022-09-25] MEDS: GABAPENTIN 100 MG CAP PO SCH ×2 (08:43→22:32)
[2022-09-25] MEDS: ACETAMINOPHEN 325 MG TAB PO PRN (08:50)
[2022-09-25 08:58] LABS: Hematocrit (blood only) 28.9 % (37.0-47.0); Hemoglobin 9.3 g/dl (12.0-16.0); Mean Corpuscular Hemoglobin 32.2 pg (25.0-34.0); Mean Corpuscular Hgb Conc 32.2 g/dL (32.0-36.0); Mean Platelet Volume 10.4 fL (9.4-12.4); Nucleated RBC # (auto) 0.05 K/uL (0-0.12); Nucleated RBC % (auto) 0.2 %; Platelet Count 159 K/uL (130-400); RDW Coefficient of Variation 14.6 % (11.5-14.5); RDW Standard Deviation 50.8 fL (36.4-46.3); Red Blood Count 2.89 M/uL (4.20-5.40); White Blood Count 23.69 K/ul (4.8-10.8)
[2022-09-25] MEDS ORDERED: OPTIRAY 350 100ml IV ONE (10:25)
--- NOTE | 2022-09-25 11:47 | CT Scan Report ---
CT soft tissue neck w con HISTORY: 36 years-old Female Neck Cellulitis acute soft tissue swelling of the left neck COMPARISON: CT soft tissue neck 09/23/2022 TECHNIQUE: Multiple axial CT images of the soft tissues of the neck were obtained following the intra venous administration of 80 mL Optiray 350. A dose lowering technique was used consistent with the pr incipals of FRED. FINDINGS: Mild asymmetric enlargement of the left sternocleidomastoid muscle redemonstrated. Moderate subcutane ous edema with skin thickening is again noted within the left neck. Interval development of mild stra nding surrounding the bilateral submandibular glands which now. Be slightly heterogeneous. The paroti d glands are within normal limits. Patent airway. The epiglottis, glottis and subglottic airway is wi thin normal limits. Cervical chain lymph nodes measure up to 9 mm on the left, likely reactive. No fo maicol fluid collections or prevertebral edema. Unremarkable thyroid. Patent stent within the left brachiocephalic vein approximately 50% luminal narrowing. Lung apices ar e clear. No acute fracture. Minimal mucosal thickening of the paranasal sinuses. No suspicious bone l esions identified. IMPRESSION: 1. Asymmetric subcutaneous edema and skin thickening of the left neck suggestive of cellulitis, now e xtending into the submandibular tissues and right face. 2. No abscess. 3. Mild enlargement and heterogeneity of the submandibular glands. Correlate clinically to exclude an associated sialoadenitis. ACT 112: Negative or not required by law. The above report was generated using voice recognition software. It may contain grammatical, syntax o r spelling errors. Electronically signed by: Cristhian Copeland M.D. 09/25/2022 11:44 AM
[2022-09-25] MEDS: AZTREONAM 2,000 MG in DEXTROSE 5% 100 ML IV SCH (15:00)
[2022-09-25] MEDS: metroNIDAZOLE 500 MG/100 ML BAG IV SCH ×2 (15:50→22:33)
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
[2022-09-25] MEDS: CINACALCET HCL 30 MG TAB PO SCH (17:21)
[2022-09-25 17:27] LABS: HBSAG NON-REACTIVE (NON-REACTIVE); Hepatitis B Core Antibody IgM NON-REACTIVE (NON-REACTIVE); Hepatitis BE Antigen Nonreactive
[2022-09-25] MEDS: oxyCODONE/ACETAMINOPHEN 5mg/325mg TAB PO PRN (22:42)
[2022-09-26] MEDS: metroNIDAZOLE 500 MG/100 ML BAG IV SCH ×3 (06:02→21:49)
[2022-09-26] MEDS: INSULIN ASPART PER UNIT SC SCH ×4 (07:56→20:45)
[2022-09-26] MEDS: DICLOFENAC SOD 1% GEL 100 GM TUBE EXT SCH ×3 (07:57→20:43)
[2022-09-26] MEDS: FLUTICASONE PROPIONATE NA SPR 16 GM BTL SCH (07:57)
[2022-09-26] MEDS: FLUTICASONE/VILANTEROL 200/25MCG 14 PUFFS/INHALER INH SCH (07:57)
[2022-09-26] MEDS: PANTOprazole 40 MG TAB PO SCH ×2 (07:58→20:45)
[2022-09-26] MEDS: CALCIUM ACETATE 667 MG CAP/TAB PO SCH ×3 (07:58→16:18)
[2022-09-26] MEDS: GABAPENTIN 100 MG CAP PO SCH ×2 (07:58→20:45)
[2022-09-26] MEDS: NEPHROCAPS PO SCH (07:59)
[2022-09-26] MEDS: SERTRALINE HCL 50 MG TABLET PO SCH (07:59)
[2022-09-26] MEDS: DOCUSATE SODIUM 100 MG CAP PO SCH ×2 (07:59→20:44)
[2022-09-26 09:01] LABS: Basophils # (auto) 0.06 K/uL (0-0.2); Basophils % (auto) 0.3 %; Eosinophils # (auto) 0.31 K/uL (0-0.50); Eosinophils % (auto) 1.4 %; Hematocrit (blood only) 25.8 % (37.0-47.0); Hemoglobin 8.4 g/dl (12.0-16.0); Immature Granulocytes # (auto) 0.24 K/uL (0.01-0.20); Immature Granulocytes % (auto) 1.1 %; Lymphocytes # (auto) 1.32 K/uL (1.2-3.4); Lymphocytes % (auto) 5.9 %; Mean Corpuscular Hemoglobin 32.3 pg (25.0-34.0); Mean Corpuscular Hgb Conc 32.6 g/dL (32.0-36.0); Mean Corpuscular Volume 99.2 fL (80.0-100.0); Mean Platelet Volume 10.6 fL (9.4-12.4); Monocytes # (auto) 1.33 K/uL (0.11-0.59); Neutrophils # (auto) 19.06 K/uL (1.40-6.50); Neutrophils % (auto) 85.3 %; Nucleated RBC # (auto) 0.04 K/uL (0-0.12); Nucleated RBC % (auto) 0.2 %; Platelet Count 174 K/uL (130-400); RDW Coefficient of Variation 14.7 % (11.5-14.5); RDW Standard Deviation 51.1 fL (36.4-46.3); White Blood Count 22.32 K/ul (4.8-10.8)
[2022-09-26] MEDS ORDERED: LORazepam 0.5 MG TAB ONE (09:17)
[2022-09-26] MEDS: hydrOXYzine HCl 25 MG TAB PO PRN (09:18)
[2022-09-26] MEDS ORDERED: SODIUM CHLORIDE 0.9% 1000ML 1,000 ML IV PRN (09:38)
[2022-09-26] MEDS ORDERED: HEPARIN SOD (PORCINE) 1000 UNIT/ML IV ONE (09:45)
[2022-09-26] MEDS ORDERED: EPOETIN ALFA 20,000 UNITS/ML VIAL IV ONE (09:45)
[2022-09-26 09:49] LABS: Anion Gap 11 (3-11); BUN Creatinine Ratio 6.1 (10-20); Blood Urea Nitrogen 50 mg/dl (6-23); Calcium 9.4 mg/dl (8.5-10.1); Carbon Dioxide 26 mmol/L (21-32); Chloride 91 mmol/L (98-107); Creatinine Clr Calc Pharmacy 10.7 ml/min; Est GFR (African American) 6.6 ml/min; Est GFR (Non-African American) 5.7 ml/min; Glucose 105 mg/dl (70-99(Fasting)); Sodium 128 mmol/L (136-145)
[2022-09-26] MEDS: HEPARIN SOD (PORCINE) 1000 UNIT/ML IV SCH ×3 (10:49→13:41)
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
[2022-09-26] MEDS: AZTREONAM 2,000 MG in DEXTROSE 5% 100 ML IV SCH (13:52)
[2022-09-26] MEDS: oxyCODONE/ACETAMINOPHEN 5mg/325mg TAB PO PRN (15:20)
--- NOTE | 2022-09-26 16:14 | Hospitalist Progress Note ---
Date of Service September 26, 2022 Assessment & Plan (1) End-stage renal disease on hemodialysis: (2) Uremic encephalopathy: (3) Hyperkalemia: (4) Missed dialysis: (5) Status post fall: (6) Anemia of chronic disease: (7) HTN (hypertension): (8) DM2 (diabetes mellitus, type 2): (9) Depression with anxiety: Plan Patient is a complex 36 y/o non-compliant ESRD HD patient presents s/p fall and elevated creatinine 15.68; K+ 5.9. Stat HD in dialysis suite. Patient with signs of uremic encephalopathy. Imaging negative s/p fall. Pt s/p renal tx 2013. Other history: Depression and anxiety and Dm2. ESRD Uremic encephalopathy Hyperkalemia due to above Non compliant with dialysis Volume overload due to above --Chest x-ray:Cardiomegaly with pulmonary vascular congestion. Continue dialysis as per nephrology Appreciate nephrology input Monitor potassium, renal function Neck/Facial Cellulitis Sialoadenitis. No abscess on imaging --Repeat CT head:No acute intracranial abnormality. --Neck CT:Asymmetric subcutaneous fat stranding/edema with left neck skin thickening and mild left cervical lymphadenopathy. The left sternocleidomastoid muscle is also edematous and mildly enlarged. This could be due to a cellulitis or less likely posttraumatic changes. No abscess identified. --Repeat Neck CT:Asymmetric subcutaneous edema and skin thickening of the left neck suggestive of cellulitis, now extending into the submandibular tissues and right face. No abscess. Mild enlargement and heterogeneity of the submandibular glands. Correlate clinically to exclude an associated sialoadenitis. --Blood Cultures: No growtht o date --Continue daptomycin. Added aztreonam, Flagyl --No ENT service available currently --Consulted ID--Pending Input --Continue current treatment S/P Fall: H/O recurrent falls which she attributes to broken bed Denies any domestic abuse. Also denies any safety concerns --Head CT:No acute intracranial abnormality. --Neck CT:No acute cervical spine fracture or subluxation. Mild edema within the soft tissues of the neck, including prevertebral edema at the level of the mid cervical spine. This edema is a nonspecific finding. --Shoulder X ray:No fractures within the left shoulder or left humerus. Fall precautions Minimize sedative meds as able Anemia of chronic disease: Thrombocytopenia Hb at baseline No bleeding issues Monitor CBC HTN: BP relatively low Hold amlodipine, carvedilol Monitor BP DM II with peripheral neuropathy: Non-insulin dependent On gabapentin Diet controlled A1c of 5.9 08/16 Continue Insulin while hospitalized Depression and anxiety: On Trazodone and sertraline Also on lorazepam prior to dialysis Denies suicidal ideation Appreciate Psychiatry Input DVT Px: SCDs Re: Head trauma, Anemia/Thrombocytopenia, H/O GI Bleed CODE STATUS: Full code Admission and Anticipated Discharge Date Admission Date: September 19, 2022 Subjective Patient is seen and examined at bedside Had dialysis this morning Left sided neck pain, swelling and erythema still persistent Denies any chest pain, dyspnea, dizziness, nausea, abd pain No other complaints Review of Systems Review of Systems: All systems reviewed & are unremarkable except as noted in Subjective Physical Exam Physical Exam: Physical Exam: Vitals signs as noted above General Appearance:Morbidly Obese, no apparent distress Head: normocephalic, Atraumatic Eyes: normal inspection, EOMI Neck: supple, Trachea midline, L erythema, tender, Swelling Respiratory/Chest: Normal breath sounds, CTA, No accessory muscle use Cardiovascular: S1, S2, No murmur Abdomen/GI:Soft, Non tender, Protuberant, Bowel sounds present Extremities/Musculoskeletal:normal inspection, no edema Neurologic/Psych:AAOX3, grossly no focal neurological deficits Skin: normal color, warm Results & Data Results & Data ([facility]) Vital Signs (Past 12 Hours) Vital Signs Temp Pulse Pulse Pulse Resp BP BP 09/26/22 15:00 37.2 C 89 18 108/74 09/26/22 13:15 36.8 C 80 107/54 L 09/26/22 13:00 66 94/52 L 09/26/22 12:30 82 96/64 L 09/26/22 12:00 79 97/51 L 09/26/22 11:47 09/26/22 11:30 81 98/64 L 09/26/22 11:00 79 98/59 L 09/26/22 10:30 81 94/59 L 09/26/22 10:00 77 128/97 09/26/22 09:35 73 103/63 09/26/22 09:25 36.8 C 74 09/26/22 07:24 74 09/26/22 06:08 36.4 C L 74 18 116/75 Pulse Ox O2 Del Method 09/26/22 15:00 95 Room Air 09/26/22 13:15 09/26/22 13:00 09/26/22 12:30 09/26/22 12:00 09/26/22 11:47 Room Air 09/26/22 11:30 09/26/22 11:00 09/26/22 10:30 09/26/22 10:00 09/26/22 09:35 09/26/22 09:25 09/26/22 07:24 09/26/22 06:08 98 Room Air Laboratory Results Short CBC 09/26/22 Range/Units 08:43 WBC 22.32 H (4.8-10.8) K/ul Hgb 8.4 L (12.0-16.0) g/dl Hct 25.8 L (37.0-47.0) % Plt Count 174 (130-400) K/uL BMP 09/26/22 09/26/22 08:24 10:09 Sodium 128 L Potassium TNP 4.7 D Chloride 91 L Carbon Dioxide 26 BUN 50 H D Creatinine 8.18 H* D Glucose 105 H Calcium 9.4 (1) HTN (hypertension) Hypertension type: unspecified Qualified Code(s): I10 - Essential (primary) hypertension (2) DM2 (diabetes mellitus, type 2) Diabetes mellitus custodial insulin use: without custodial use Diabetes mellitus complication status: with unspecified complications Qualified Code(s): E11.8 - Type 2 diabetes mellitus with unspecified complications
[2022-09-26] MEDS: DAPTOmycin 300 MG in SYRINGE 0 ML IV SCH (16:18)
[2022-09-26] MEDS: CINACALCET HCL 30 MG TAB PO SCH (16:19)
[2022-09-26] MEDS: diphenhydrAMINE HCL 25 MG/10 ML UDC PO PRN (17:17)
[2022-09-27] MEDS: metroNIDAZOLE 500 MG/100 ML BAG IV SCH ×3 (05:25→21:29)
[2022-09-27] MEDS: INSULIN ASPART PER UNIT SC SCH ×4 (09:05→21:33)
[2022-09-27] MEDS: CALCIUM ACETATE 667 MG CAP/TAB PO SCH ×3 (09:06→17:34)
[2022-09-27] MEDS: FLUTICASONE PROPIONATE NA SPR 16 GM BTL SCH (09:06)
[2022-09-27] MEDS: FLUTICASONE/VILANTEROL 200/25MCG 14 PUFFS/INHALER INH SCH (09:07)
[2022-09-27] MEDS: NEPHROCAPS PO SCH (09:07)
[2022-09-27] MEDS: DICLOFENAC SOD 1% GEL 100 GM TUBE EXT SCH ×3 (09:07→21:26)
[2022-09-27] MEDS: DOCUSATE SODIUM 100 MG CAP PO SCH ×2 (09:08→21:26)
[2022-09-27] MEDS: SERTRALINE HCL 50 MG TABLET PO SCH (09:08)
[2022-09-27] MEDS: GABAPENTIN 100 MG CAP PO SCH ×2 (09:08→21:28)
[2022-09-27] MEDS: PANTOprazole 40 MG TAB PO SCH ×2 (09:08→21:28)
[2022-09-27 09:46] LABS: Hematocrit (blood only) 28.3 % (37.0-47.0); Hemoglobin 9.2 g/dl (12.0-16.0); Mean Corpuscular Hemoglobin 32.5 pg (25.0-34.0); Mean Corpuscular Hgb Conc 32.5 g/dL (32.0-36.0); Mean Platelet Volume 10.1 fL (9.4-12.4); Nucleated RBC % (auto) 0.6 %; Platelet Count 172 K/uL (130-400); RDW Standard Deviation 53.1 fL (36.4-46.3); Red Blood Count 2.83 M/uL (4.20-5.40); White Blood Count 18.11 K/ul (4.8-10.8)
[2022-09-27] MEDS: diphenhydrAMINE HCL 25 MG/10 ML UDC PO PRN ×2 (10:11→21:26)
[2022-09-27 10:22] LABS: BUN Creatinine Ratio 5.6 (10-20); Calcium 8.2 mg/dl (8.5-10.1); Est GFR (African American) 9.9 ml/min; Est GFR (Non-African American) 8.5 ml/min; Potassium 4.3 mmol/L (3.5-5.1)
[2022-09-27] MEDS: AZTREONAM 2,000 MG in DEXTROSE 5% 100 ML IV SCH (14:29)
--- NOTE | 2022-09-27 16:22 | Hospitalist Progress Note ---
Date of Service September 27, 2022 Assessment & Plan (1) End-stage renal disease on hemodialysis: (2) Uremic encephalopathy: (3) Hyperkalemia: (4) Missed dialysis: (5) Status post fall: (6) Anemia of chronic disease: (7) HTN (hypertension): (8) DM2 (diabetes mellitus, type 2): (9) Depression with anxiety: Plan Patient is a complex 36 y/o non-compliant ESRD HD patient presents s/p fall and elevated creatinine 15.68; K+ 5.9. Stat HD in dialysis suite. Patient with signs of uremic encephalopathy. Imaging negative s/p fall. Pt s/p renal tx 2013. Other history: Depression and anxiety and Dm2. ESRD Uremic encephalopathy Hyperkalemia due to above Non compliant with dialysis Volume overload due to above --Chest x-ray:Cardiomegaly with pulmonary vascular congestion. Continue dialysis as per nephrology Appreciate nephrology input Monitor potassium, renal function Plan for hemodialysis tomorrow Neck/Facial Cellulitis Sialoadenitis. No abscess on imaging --Repeat CT head:No acute intracranial abnormality. --Neck CT:Asymmetric subcutaneous fat stranding/edema with left neck skin thickening and mild left cervical lymphadenopathy. The left sternocleidomastoid muscle is also edematous and mildly enlarged. This could be due to a cellulitis or less likely posttraumatic changes. No abscess identified. --Repeat Neck CT:Asymmetric subcutaneous edema and skin thickening of the left neck suggestive of cellulitis, now extending into the submandibular tissues and right face. No abscess. Mild enlargement and heterogeneity of the submandibular glands. Correlate clinically to exclude an associated sialoadenitis. --Blood Cultures: No growth to date --Continue daptomycin. Added aztreonam, Flagyl --No ENT service available currently --Consulted ID--Pending Input --Continue current treatment -- Slowly improving S/P Fall: H/O recurrent falls which she attributes to broken bed Denies any domestic abuse. Also denies any safety concerns --Head CT:No acute intracranial abnormality. --Neck CT:No acute cervical spine fracture or subluxation. Mild edema within the soft tissues of the neck, including prevertebral edema at the level of the mid cervical spine. This edema is a nonspecific finding. --Shoulder X ray:No fractures within the left shoulder or left humerus. Fall precautions Minimize sedative meds as able Anemia of chronic disease: Thrombocytopenia Hb at baseline No bleeding issues Monitor CBC HTN: BP relatively low Hold amlodipine, carvedilol for now Monitor BP DM II with peripheral neuropathy: Non-insulin dependent On gabapentin Diet controlled A1c of 5.9 08/16 Continue Insulin while hospitalized Depression and anxiety: On Trazodone and sertraline Also on lorazepam prior to dialysis Denies suicidal ideation Appreciate Psychiatry Input DVT Px: SCDs Re: Head trauma, Anemia/Thrombocytopenia, H/O GI Bleed CODE STATUS: Full code Admission and Anticipated Discharge Date Admission Date: September 19, 2022 Subjective Patient is seen and examined at bedside States feeling better today Left sided neck pain, swelling, erythema slowly improving No new complaints Denies any chest pain, dyspnea, dizziness, nausea, abd pain Review of Systems Review of Systems: All systems reviewed & are unremarkable except as noted in Subjective Physical Exam Physical Exam: Physical Exam: Vitals signs as noted above General Appearance:Morbidly Obese, no apparent distress Head: normocephalic, Atraumatic Eyes: normal inspection, EOMI Neck: supple, Trachea midline, L erythema, mild tender, Swelling Respiratory/Chest: Normal breath sounds, CTA, No accessory muscle use Cardiovascular: S1, S2, No murmur Abdomen/GI:Soft, Non tender, Protuberant, Bowel sounds present Extremities/Musculoskeletal:normal inspection, no edema Neurologic/Psych:AAOX3, grossly no focal neurological deficits Skin: normal color, warm Results & Data Results & Data ([facility]) Vital Signs (Past 12 Hours) Vital Signs Temp Pulse Pulse Resp BP Pulse Ox O2 Del Method 09/27/22 15:07 36.6 C 74 18 112/72 99 Room Air 09/27/22 11:56 37.2 C 75 16 139/79 99 Room Air 09/27/22 11:30 Room Air 09/27/22 10:33 Room Air 09/27/22 07:21 70 09/27/22 07:11 36.5 C 70 14 115/73 98 Room Air 09/27/22 04:58 36.5 C 76 20 120/76 98 Room Air Laboratory Results Short CBC 09/27/22 Range/Units 09:31 WBC 18.11 H (4.8-10.8) K/ul Hgb 9.2 L (12.0-16.0) g/dl Hct 28.3 L (37.0-47.0) % Plt Count 172 (130-400) K/uL BMP 09/27/22 09:31 Sodium 138 D Potassium 4.3 Chloride 97 L Carbon Dioxide 29 BUN 33 H Creatinine 5.88 H* D Glucose 117 H Calcium 8.2 L (1) HTN (hypertension) Hypertension type: unspecified Qualified Code(s): I10 - Essential (primary) hypertension (2) DM2 (diabetes mellitus, type 2) Diabetes mellitus longterm insulin use: without longterm use Diabetes mellitus complication status: with unspecified complications Qualified Code(s): E11.8 - Type 2 diabetes mellitus with unspecified complications
[2022-09-27] MEDS: CINACALCET HCL 30 MG TAB PO SCH (17:34)
[2022-09-28] MEDS: metroNIDAZOLE 500 MG/100 ML BAG IV SCH (05:40)
[2022-09-28 06:37] LABS: Calcium 8.7 mg/dl (8.5-10.1); Potassium 4.1 mmol/L (3.5-5.1)
[2022-09-28 06:45] LABS: BUN Creatinine Ratio 5.8 (10-20); Creatinine Clr Calc Pharmacy 11.4 ml/min; Est GFR (African American) 7.3 ml/min; Est GFR (Non-African American) 6.3 ml/min
[2022-09-28 07:38] LABS: Hematocrit (blood only) 27.6 % (37.0-47.0); Hemoglobin 9.1 g/dl (12.0-16.0); Mean Corpuscular Hemoglobin 32.4 pg (25.0-34.0); Mean Corpuscular Volume 98.2 fL (80.0-100.0); Mean Platelet Volume 10.4 fL (9.4-12.4); Nucleated RBC # (auto) 0.06 K/uL (0-0.12); Nucleated RBC % (auto) 0.4 %; Platelet Count 179 K/uL (130-400); RDW Coefficient of Variation 14.8 % (11.5-14.5); RDW Standard Deviation 51.4 fL (36.4-46.3); Red Blood Count 2.81 M/uL (4.20-5.40); White Blood Count 14.44 K/ul (4.8-10.8)
[2022-09-28] MEDS ORDERED: EPOETIN ALFA 20,000 UNITS/ML VIAL IV ONE (07:54)
[2022-09-28] MEDS ORDERED: SODIUM CHLORIDE 0.9% 1000ML 1,000 ML IV PRN (07:54)
[2022-09-28] MEDS ORDERED: HEPARIN SOD (PORCINE) 1000 UNIT/ML IV SCH (08:00)
[2022-09-28] MEDS: INSULIN ASPART PER UNIT SC SCH ×4 (08:29→21:38)
[2022-09-28] MEDS: DICLOFENAC SOD 1% GEL 100 GM TUBE EXT SCH ×3 (08:31→21:38)
[2022-09-28] MEDS: FLUTICASONE/VILANTEROL 200/25MCG 14 PUFFS/INHALER INH SCH (08:31)
[2022-09-28] MEDS: GABAPENTIN 100 MG CAP PO SCH ×2 (08:31→21:36)
[2022-09-28] MEDS: PANTOprazole 40 MG TAB PO SCH ×2 (08:31→21:36)
[2022-09-28] MEDS: DOCUSATE SODIUM 100 MG CAP PO SCH ×2 (08:31→21:36)
[2022-09-28] MEDS: NEPHROCAPS PO SCH (08:31)
[2022-09-28] MEDS: FLUTICASONE PROPIONATE NA SPR 16 GM BTL SCH (08:31)
[2022-09-28] MEDS: SERTRALINE HCL 50 MG TABLET PO SCH (08:32)
[2022-09-28] MEDS: CALCIUM ACETATE 667 MG CAP/TAB PO SCH ×3 (08:32→17:01)
[2022-09-28] MEDS ORDERED: VANCOMYCIN CONSULT ACTIVE PRN (10:13)
[2022-09-28] MEDS: hydrOXYzine HCl 25 MG TAB PO PRN (11:38)
[2022-09-28] MEDS: LORazepam 0.5 MG TAB PO PRN (11:38)
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
[2022-09-28] MEDS: HEPARIN SOD (PORCINE) 1000 UNIT/ML IV SCH (13:49)
--- NOTE | 2022-09-28 14:32 | Pharmacy Report ---
Pharmacy PK ABX Note - Date of Service September 28, 2022 - Assessment and Plan Assessment * Ms Arguello is a 36 year old F receiving antibiotics for the treatment of neck/facial cellulitis, sialoadenitis. * ID has been consulted and they recommended switching abx to vancomycin and ertapenem. * Pt was previously receiving daptomycin, aztreonam, and metronidazole * Pertinent microbiologic data includes: blood cx remain negative to date * PMH is significant for DM and CKD on dialysis (pt is non-compliant with HD treatments) Plan Vancomycin * Loading dose: 1500 mg IV x 1 -- pt is to receive dose following HD session today * Random vanc level ordered for tomorrow morning. Will re-dose vancomycin when indicated. * Target trough level: ~15-20 mcg/mL Ertapenem 500mg IV daily -- to be dosed following HD sessions on HD days Pharmacy will continue to follow and will adjust dose/frequency as necessary. Thank you. Pharmacy has transitioned to AUC monitoring for vancomycin. AUC/YING is the pref erred PK/PD target and is associated with decreased risk of nephrotoxicity compared to traditional trough targets.
[2022-09-28] MEDS: CINACALCET HCL 30 MG TAB PO SCH (17:00)
[2022-09-28] MEDS: ERTAPENEM SODIUM 500 MG in SYRINGE 0 ML IV SCH (17:05)
[2022-09-28] MEDS: ONDANSETRON INJ 2 MG/ML 2 ML VIAL IV PRN (17:17)
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
[2022-09-28] MEDS ORDERED: VANCOMYCIN HCL 1,500 MG in SODIUM CHLORIDE 0.9% 500 ML IV SCH (18:00)
[2022-09-28] MEDS: oxyCODONE/ACETAMINOPHEN 5mg/325mg TAB PO PRN (18:40)
[2022-09-28] MEDS: diphenhydrAMINE HCL 25 MG/10 ML UDC PO PRN (21:36)
[2022-09-29] MEDS: oxyCODONE/ACETAMINOPHEN 5mg/325mg TAB PO PRN ×2 (05:26→14:57)
[2022-09-29 06:27] LABS: Hematocrit (blood only) 30.3 % (37.0-47.0); Hemoglobin 9.6 g/dl (12.0-16.0); Mean Corpuscular Hemoglobin 31.9 pg (25.0-34.0); Mean Corpuscular Hgb Conc 31.7 g/dL (32.0-36.0); Mean Corpuscular Volume 100.7 fL (80.0-100.0); Nucleated RBC # (auto) 0.06 K/uL (0-0.12); Nucleated RBC % (auto) 0.5 %; Platelet Count 171 K/uL (130-400); RDW Coefficient of Variation 15.6 % (11.5-14.5); RDW Standard Deviation 53.8 fL (36.4-46.3); Red Blood Count 3.01 M/uL (4.20-5.40); White Blood Count 11.16 K/ul (4.8-10.8)
[2022-09-29 06:59] LABS: BUN Creatinine Ratio 3.9 (10-20); Calcium 9.9 mg/dl (8.5-10.1); Creatinine Clr Calc Pharmacy 17.1 ml/min; Est GFR (African American) 11.5 ml/min; Est GFR (Non-African American) 9.9 ml/min; Potassium 3.7 mmol/L (3.5-5.1)
[2022-09-29] MEDS: INSULIN ASPART PER UNIT SC SCH ×4 (07:42→21:01)
[2022-09-29] MEDS: FLUTICASONE PROPIONATE NA SPR 16 GM BTL SCH (09:29)
[2022-09-29] MEDS: FLUTICASONE/VILANTEROL 200/25MCG 14 PUFFS/INHALER INH SCH (09:29)
[2022-09-29] MEDS: PANTOprazole 40 MG TAB PO SCH ×2 (09:30→21:01)
[2022-09-29] MEDS: CALCIUM ACETATE 667 MG CAP/TAB PO SCH ×3 (09:30→17:46)
[2022-09-29] MEDS: DICLOFENAC SOD 1% GEL 100 GM TUBE EXT SCH ×3 (09:30→21:00)
[2022-09-29] MEDS: DOCUSATE SODIUM 100 MG CAP PO SCH ×2 (09:31→21:00)
[2022-09-29] MEDS: GABAPENTIN 100 MG CAP PO SCH ×2 (09:31→21:00)
[2022-09-29] MEDS: diphenhydrAMINE HCL 25 MG/10 ML UDC PO PRN ×2 (09:58→21:12)
[2022-09-29] MEDS: SERTRALINE HCL 50 MG TABLET PO SCH (09:58)
[2022-09-29] MEDS: NEPHROCAPS PO SCH (09:58)
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
--- NOTE | 2022-09-29 13:48 | Pharmacy Report ---
Pharmacy PK ABX Note - Date of Service September 29, 2022 - Assessment and Plan Assessment * Ms Arguello is a 36 year old F receiving antibiotics for the treatment of neck/facial cellulitis, sialoadenitis. * ID has been consulted and they recommended switching abx to vancomycin and ertapenem. * Pt was previously receiving daptomycin, aztreonam, and metronidazole * Pertinent microbiologic data includes: blood cx remain negative to date * PMH is significant for DM and CKD on dialysis (pt is non-compliant with HD treatments) Plan Vancomycin * ~12 hour Random vanc level 28.5 this morning after yesterday's loading dose. No current plan for HD today. Will re-dose vancomycin when indicated. * Repeat random level in AM * Target trough level: ~15-20 mcg/mL Ertapenem 500mg IV daily -- to be dosed following HD sessions on HD days Pharmacy will continue to follow and will adjust dose/frequency as necessary. Thank you. Pharmacy has transitioned to AUC monitoring for vancomycin. AUC/YING is the preferred PK/PD target and is associated with decreased risk of nephrotoxicity compared to traditional trough targets.
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
[2022-09-29] MEDS: CINACALCET HCL 30 MG TAB PO SCH (17:46)
[2022-09-29] MEDS: ERTAPENEM SODIUM 500 MG in SYRINGE 0 ML IV SCH (17:46)
[2022-09-29] MEDS ORDERED: traZODone HCL 100 MG TAB PO STA (21:23)
[2022-09-30 06:20] LABS: Calcium 9.9 mg/dl (8.5-10.1); Magnesium 2.4 mg/dl (1.7-2.4); Potassium 3.4 mmol/L (3.5-5.1)
[2022-09-30 06:32] LABS: BUN Creatinine Ratio 3.8 (10-20); Creatinine Clr Calc Pharmacy 11.2 ml/min; Est GFR (African American) 6.9 ml/min; Est GFR (Non-African American) 5.9 ml/min; Phosphorus 3.3 mg/dl (2.5-4.9)
[2022-09-30] MEDS: SERTRALINE HCL 50 MG TABLET PO SCH (08:39)
[2022-09-30] MEDS: PANTOprazole 40 MG TAB PO SCH ×2 (08:39→20:17)
[2022-09-30] MEDS: DOCUSATE SODIUM 100 MG CAP PO SCH ×2 (08:39→20:15)
[2022-09-30] MEDS: CALCIUM ACETATE 667 MG CAP/TAB PO SCH ×3 (08:39→16:56)
[2022-09-30] MEDS: GABAPENTIN 100 MG CAP PO SCH ×2 (08:39→20:17)
[2022-09-30] MEDS: INSULIN ASPART PER UNIT SC SCH ×4 (08:40→20:14)
[2022-09-30] MEDS: NEPHROCAPS PO SCH (08:40)
[2022-09-30] MEDS: FLUTICASONE PROPIONATE NA SPR 16 GM BTL SCH (08:41)
[2022-09-30] MEDS: DICLOFENAC SOD 1% GEL 100 GM TUBE EXT SCH ×3 (08:41→20:15)
[2022-09-30] MEDS: FLUTICASONE/VILANTEROL 200/25MCG 14 PUFFS/INHALER INH SCH (08:41)
[2022-09-30 09:38] LABS: Hematocrit (blood only) 27.5 % (37.0-47.0); Hemoglobin 8.9 g/dl (12.0-16.0); Mean Corpuscular Hemoglobin 32.4 pg (25.0-34.0); Mean Corpuscular Hgb Conc 32.4 g/dL (32.0-36.0); Mean Platelet Volume 10.3 fL (9.4-12.4); Nucleated RBC # (auto) 0.02 K/uL (0-0.12); Nucleated RBC % (auto) 0.2 %; Platelet Count 171 K/uL (130-400); RDW Coefficient of Variation 15.8 % (11.5-14.5); RDW Standard Deviation 53.1 fL (36.4-46.3); Red Blood Count 2.75 M/uL (4.20-5.40); White Blood Count 10.61 K/ul (4.8-10.8)
[2022-09-30] MEDS: oxyCODONE/ACETAMINOPHEN 5mg/325mg TAB PO PRN ×2 (11:09→22:31)
[2022-09-30] MEDS: diphenhydrAMINE HCL 25 MG/10 ML UDC PO PRN ×2 (11:27→17:59)
--- NOTE | 2022-09-30 13:01 | Pharmacy Report ---
Pharmacy PK ABX Note - Date of Service September 30, 2022 - Assessment and Plan Assessment * Ms Arguello is a 36 year old F receiving antibiotics for the treatment of neck/facial cellulitis, sialoadenitis. * ID has been consulted and they recommended switching abx to vancomycin and ertapenem. * Pt was previously receiving daptomycin, aztreonam, and metronidazole * Pertinent microbiologic data includes: blood cx remain negative to date * PMH is significant for DM and CKD on dialysis (pt is non-compliant with HD treatments) 09/30: * Repeat random demonstrated some minimal clearance 28.5 to 25.1 today. Patient not to be dialyzed again until tomorrow. Plan to consider a redose of 0-500mg tomorrow after HD session. Plan Vancomycin * Repeat Random vanc level 25.1 this morning without HD or redose. * Consider redose after tomorrow's HD session * Target trough level: ~15-20 mcg/mL Ertapenem 500mg IV daily -- to be dosed following HD sessions on HD days Pharmacy will continue to follow and will adjust dose/frequency as necessary. Thank you. Pharmacy has transitioned to AUC monitoring for vancomycin. AUC/YING is the preferred PK/PD target and is associated with decreased risk of nephrotoxicity compared to traditional trough targets.
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
[2022-09-30] MEDS ORDERED: hydrALAZINE HCL 20 MG/ML VIAL IV PRN (16:34)
[2022-09-30] MEDS: CINACALCET HCL 30 MG TAB PO SCH (16:56)
[2022-09-30] MEDS: ERTAPENEM SODIUM 500 MG in SYRINGE 0 ML IV SCH (17:52)
[2022-09-30] MEDS ORDERED: diphenhydrAMINE HCl 12.5 MG/5 ML UDC PO ONE (18:00)
[2022-09-30] MEDS ORDERED: traZODone HCL 100 MG TAB PO STA (20:28)
[2022-09-30] MEDS: amLODIPine BESYLATE 5 MG TAB PO SCH (20:46)
[2022-09-30] MEDS: carvediloL 3.125 MG TAB PO SCH (20:46)
[2022-10-01 06:17] LABS: Mean Corpuscular Hemoglobin 32.1 pg (25.0-34.0); Mean Corpuscular Hgb Conc 32.1 g/dL (32.0-36.0); Platelet Count 146 K/uL (130-400); RDW Coefficient of Variation 15.9 % (11.5-14.5); RDW Standard Deviation 52.9 fL (36.4-46.3); White Blood Count 7.37 K/ul (4.8-10.8)
[2022-10-01] MEDS ORDERED: SODIUM CHLORIDE 0.9% 1000ML 1,000 ML IV PRN (07:00)
[2022-10-01] MEDS ORDERED: EPOETIN ALFA 20,000 UNITS/ML VIAL IV ONE (07:00)
[2022-10-01 07:05] LABS: BUN Creatinine Ratio 3.8 (10-20); Calcium 9.5 mg/dl (8.5-10.1); Creatinine Clr Calc Pharmacy 9.7 ml/min; Est GFR (African American) 5.7 ml/min; Est GFR (Non-African American) 4.9 ml/min; Potassium 3.6 mmol/L (3.5-5.1)
[2022-10-01] MEDS: LORazepam 0.5 MG TAB PO PRN (07:45)
[2022-10-01] MEDS: hydrOXYzine HCl 25 MG TAB PO PRN (07:45)
[2022-10-01] MEDS: INSULIN ASPART PER UNIT SC SCH ×4 (07:46→21:12)
[2022-10-01] MEDS: DICLOFENAC SOD 1% GEL 100 GM TUBE EXT SCH ×3 (07:47→21:14)
[2022-10-01] MEDS: carvediloL 3.125 MG TAB PO SCH ×2 (07:47→21:13)
[2022-10-01] MEDS: CALCIUM ACETATE 667 MG CAP/TAB PO SCH ×3 (07:47→16:47)
[2022-10-01] MEDS: SERTRALINE HCL 50 MG TABLET PO SCH (07:48)
[2022-10-01] MEDS: NEPHROCAPS PO SCH (07:48)
[2022-10-01] MEDS: PANTOprazole 40 MG TAB PO SCH ×2 (07:48→21:12)
[2022-10-01] MEDS: FLUTICASONE/VILANTEROL 200/25MCG 14 PUFFS/INHALER INH SCH (07:48)
[2022-10-01] MEDS: GABAPENTIN 100 MG CAP PO SCH ×2 (07:48→21:12)
[2022-10-01] MEDS: FLUTICASONE PROPIONATE NA SPR 16 GM BTL SCH (07:48)
[2022-10-01] MEDS: DOCUSATE SODIUM 100 MG CAP PO SCH ×2 (07:48→21:14)
--- NOTE | 2022-10-01 11:10 | Dialysis Progress Note ---
Date of Service October 01, 2022 Assessment & Plan Admission and Anticipated Discharge Date Admission Date: September 19, 2022 Subjective Assessment & Plan (1) Inflammation of soft tissue: Plan: -Now on ertapenem and Vanco as per ID -no further fever Getting Amoxicillin Challenge test today in ICU. reviewed 2/2 ID consult, repeat CT stat of neck, swallow eval. no evidence of airway compromise at this time (2) End-stage renal disease on hemodialysis: Plan: HD today to continue as Rxed. Planning for 2.5 to 3 kilo off. AVF fine. BP is fine and no Cramp so far. struggles to get through her treatments or to attend them d/t Anxiety (3) Anemia of chronic disease: Plan: improving. Max dose epo w/ Dialysis. Also she misses a lot so does not get enough EMILY and Iron Subjective Seen during Dialysis. HD today to continue as Rxed. Planning for 2.5 to 3 kilo off. AVF fine. BP is fine and no Cramp so far. Review of Systems Review of Systems: All systems reviewed & are unremarkable except as noted in Subjective Physical Exam Constitutional: well developed and well nourished; no acute distress Eyes: EOM intact bilaterally ENMT: Ears: no external ear abnormality Nose: no external nose abnormality (apart from smalllacerations) Mouth: + dry oral mucous membranes Neck: + neck tender (L SCM, less today and red / hot), + thick neck and + limited neck extension; no neck crepitus and no nuchal rigidity Respiratory: normal respiratory effort; no respiratory distress, no audible wheezes and no stridor Auscultation: + diminished lung sounds Cardiovascular: Rate/Rhythm: regular rate and regular rhythm Extremities: + AV fistula; no edema Gastrointestinal (Abdomen): Inspection/Auscultation: normal bowel sounds Percussion/Palpation: abdomen soft; abdomen nontender Musculoskeletal: Extremities: strength 5/5 throughout Skin: no rashes, warm and dry Results & Data ([facility]) Vital Signs (Past 12 Hours) Vital Signs Temp Pulse Pulse Pulse Resp BP BP 10/01/22 10:30 86 117/78 10/01/22 10:00 100 H 122/75 10/01/22 09:30 87 150/102 H 10/01/22 08:00 10/01/22 09:00 81 135/97 10/01/22 08:51 80 118/97 10/01/22 08:44 36.7 C 81 10/01/22 07:54 36.8 C 81 16 10/01/22 06:57 84 10/01/22 03:00 36.9 C 86 18 121/84 09/30/22 23:13 77 BP Pulse Ox O2 Del Method 10/01/22 10:30 10/01/22 10:00 10/01/22 09:30 10/01/22 08:00 Room Air 10/01/22 09:00 10/01/22 08:51 10/01/22 08:44 10/01/22 07:54 130/85 99 Room Air 10/01/22 06:57 10/01/22 03:00 97 Room Air 09/30/22 23:13
--- NOTE | 2022-10-01 12:06 | Communication Note ---
Date of Service: October 01, 2022 Reviewed patient's past history of penicillin use with pharmacy. She has gotten Unasyn documented on 02/07, , . Per patient, she had vomiting every time she took amoxicillin about 6 to 7 years ago. Patient does not remember having any allergies or side effects to medication in the last couple of years and is not aware of getting/or does not remember getting Unasyn last year or having any side effects or issues during her admission in January of last year from medication. Discussed with director china, given her lack of IgE mediated symptoms which are Rash/hive/hypertension/shortness of breath/wheezing, it is safe enough to try amoxicillin and continue with antibiotics per ID recommendation. I will discuss with ID, awaiting reply. We will possibly avoid transfer to ICU/amoxicillin challenge test which has already been ordered ---- will cancel the orders after discussion with ID and will make cabin man aware of it at that time.
[2022-10-01] MEDS ORDERED: AMOXICILLIN 250 MG CAP PO ONE (12:45)
--- NOTE | 2022-10-01 13:00 | ENT Consultation ---
Date of Consultation October 01, 2022 Assessment & Plan (1) Cellulitis, neck: Plan No drainable collection on CT scan and clinically no evidence of abscess on examination today. Patient states she is gradually improving, at least 25 percent better today than yesterday per her report. Recommend continued medical management per her primary team and Infectious Disease. No surgical intervention warranted at this time. No clinical concern for necrotizing fasciitis at this point either. Call with questions. History of Present Illness Attending Physician: Juwan Jackson MD History of Present Illness 36 yo female with ESRD, Type 2 diabetes and a bevy of other medical problemswho is on hemodialysis who is admitted to the hospital noted to have a left sided neck cellulitis. Had two recent CT scans which I reviewed and showed cellulitis, and no evidence of drainable collection. Patient states that her neck feels at least 25% better since yesterday. Currently on vancomycin and ertopenam. Patient had a similar neck cellultitis in January which was odontogenic in nature. She states that she has several bad teeth that are broken and require attention but have not yet been dealt with. She currently denies any active dental pain. Allergies Allergy/AdvReac Type Severity Reaction Status Date / Time cefaclor Allergy Intermediate Rash Verified 10/01/22 11:54 amoxicillin AdvReac Intermediate VOMITING Verified 10/01/22 11:54 clavulanic acid AdvReac Intermediate VOMITING Verified 10/01/22 11:54 Home Medications Medication Instructions Recorded Confirmed Type carvedilol 3.125 mg tablet 3.125 mg PO BID 12/21/19 09/19/22 History hydroxyzine HCl 25 mg tablet 25 mg PO Q6 PRN Anxiety 04/21/20 09/19/22 History calcium acetate(phosphat bind) 667 2,001 mg PO TIDM 06/22/20 09/19/22 History mg capsule albuterol sulfate 90 mcg/actuation 2 puff inhalation QID PRN 08/01/20 09/19/22 History aerosol inhaler Shortness Of Breath sertraline 100 mg tablet 150 mg PO QAM 08/02/20 09/19/22 History amlodipine 10 mg tablet 10 mg PO HS 08/10/20 09/19/22 History vitamin B complex-vitamin C-folic 1 tab PO QAM 08/10/20 09/19/22 History acid 0.8 mg tablet (Renal Vitamin) cinacalcet 30 mg tablet (Sensipar) 60 mg PO QDD 03/06/21 09/19/22 History lorazepam 0.5 mg tablet 0.5 mg PO Q8 PRN anxiety and 03/06/21 09/19/22 History before dialysis medroxyprogesterone 150 mg/mL 150 mg IM Q90D 03/06/21 09/19/22 History intramuscular suspension (Depo-Provera) gabapentin 400 mg capsule 400 mg PO AMHS 06/27/21 09/19/22 History (Neurontin) dicyclomine 10 mg capsule 10 mg PO QID PRN cyst 01/19/22 09/19/22 History mometasone-formoterol HFA 200 2 puff inhalation BID 01/19/22 09/19/22 History mcg-5 mcg/actuation aerosol inhaler (Dulera) omeprazole 20 mg capsule,delayed 20 mg PO AMHS 01/19/22 09/19/22 History release diclofenac sodium 1 % topical gel 2 g EXT TID #100 grams 01/23/22 09/19/22 Rx (Voltaren Arthritis Pain) albuterol sulfate 2.5 mg/3 mL 2.5 mg inhalation Q4H PRN Wheezing 09/19/22 09/19/22 History (0.083 %) solution for nebulization fluticasone propionate 50 2 spray intranasal DAILY 09/19/22 09/19/22 History mcg/actuation nasal spray,suspension (Flonase Allergy Relief) ondansetron HCl 4 mg tablet 4 mg PO Q6H PRN Nausea 09/19/22 09/19/22 History oxycodone-acetaminophen 5 mg-325 1 tab PO Q8 PRN severe pain 09/19/22 09/19/22 History mg tablet (Percocet) trazodone 100 mg tablet 200 mg PO HS 09/19/22 09/19/22 History Patient History Medical History (Updated 10/01/22 @ 12:59 by Toby Son DO) Anemia due to end stage renal disease Anemia of chronic disease Anxiety Anxiety and depression Asthma "BEEN A WHILE" SINCE USING LAST RESCUE INHALER AVF (arteriovenous fistula) bilt---currently using right for dialysis CKD (chronic kidney disease) stage V requiring chronic dialysis Depression Depression with anxiety Dialysis patient SATURDAY/SAT/SATURDAY AT [facility] DM2 (diabetes mellitus, type 2) DM2 (diabetes mellitus, type 2) ESRD (end stage renal disease) on dialysis Fistula right arm (currently being used) and left arm FSGS (focal segmental glomerulosclerosis) DX INITIALLY 2012 (CAUSING ESRD 2012) GERD (gastroesophageal reflux disease) History of abnormal cervical Papanicolaou smear HTN (hypertension) Peripheral neuropathy Prolonged QT interval Restless leg syndrome Status post fall Surgical History H/O eye surgery LASER SURGERY LEFT H/O hernia repair ABDOMINAL WALL H/O knee surgery LEFT KNEE X 2 H/O tubal ligation H/O: X 2 History of cardiac cath 2016 NO STENTS History of cholecystectomy History of colonoscopy History of surgery (~09/09/20) perm cath replacement History of surgery left arm d/t clot in arm from AV fistula use @ [facility] History of tooth extraction three TOOTH Kidney transplant recipient [address] [facility] S/P arteriovenous (AV) fistula creation right arm Family History Grandmother Hx of CABG Mother Diabetes Father Crohn's disease Grandfather (Maternal) Diabetes Uncle Diabetes Grandmother (Maternal) Family history of reaction to anesthesia difficulty waking with colonoscopy Social History Smoking Status: Never smoker Tobacco Type: Cigarettes Cigarettes Per Day: half a pack-she denies; Second Hand Exposure: Yes; Hx Alcohol Use: No Hx Substance Use: No Preferred Language: Guamanian Communication Ability: Impaired Manual Training Teacher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 Beliefs That Will Affect Care: None marital status: Single Current Living Situation: Family Current Living Situation Comment: Lives with fiance and kids How many Children do You have: 3 Feels Safe at Home: Yes Assistive Devices: None Review of Systems Review of Systems: All systems reviewed & are unremarkable except as noted in HPI & below Physical Exam Constitutional: WD/WN, vitals as above Eyes: PERRL, conjunctivae normal, anicteric sclerae ENMT: dental caries noted on the left side both in the mandibular and maxillary teeth Neck: erythema of the neck posteriorly in Left level 5 which is slightly tender to palpation. She has no ballotable edema to palpation. has some desquamated skin anteriorly in the sub mental region. There is no tenderness or erythema in this area. There is no crepitance. There is no decreased range of motion. Lymphatic: no cervical or axillary lymphadenopathy Results & Data ([facility]) Vital Signs (Past 12 Hours) Vital Signs Temp Pulse Pulse Pulse Resp BP BP 10/01/22 12:47 36.8 C 92 H 18 10/01/22 12:00 92 H 113/70 10/01/22 11:30 88 92/62 L 10/01/22 11:00 90 123/78 10/01/22 10:30 86 117/78 10/01/22 10:00 100 H 122/75 10/01/22 09:30 87 150/102 H 10/01/22 08:00 10/01/22 09:00 81 135/97 10/01/22 08:51 80 118/97 10/01/22 08:44 36.7 C 81 10/01/22 07:54 36.8 C 81 16 10/01/22 06:57 84 10/01/22 03:00 36.9 C 86 18 121/84 BP Pulse Ox O2 Del Method 10/01/22 12:47 88/65 L 100 Room Air 10/01/22 12:00 10/01/22 11:30 10/01/22 11:00 10/01/22 10:30 10/01/22 10:00 10/01/22 09:30 10/01/22 08:00 Room Air 10/01/22 09:00 10/01/22 08:51 10/01/22 08:44 10/01/22 07:54 130/85 99 Room Air 10/01/22 06:57 10/01/22 03:00 97 Room Air
[2022-10-01] MEDS: oxyCODONE/ACETAMINOPHEN 5mg/325mg TAB PO PRN ×2 (13:03→23:35)
--- NOTE | 2022-10-01 13:22 | Pharmacy Report ---
Pharmacy PK ABX Note - Date of Service October 01, 2022 - Assessment and Plan Assessment * Ms Arguello is a 36 year old F receiving antibiotics for the treatment of neck/facial cellulitis, sialoadenitis. * ID has been consulted and they recommended switching abx to vancomycin and ertapenem. * Pt was previously receiving daptomycin, aztreonam, and metronidazole * Pertinent microbiologic data includes: blood cx remain negative to date * PMH is significant for DM and CKD on dialysis (pt is non-compliant with HD treatments) 10/01: * iHD this AM (~3.5hr session). Random level yesterday AM, 25.1mcg/mL and likely between 20-25 today. Post HD, will be safe to re-dose. 09/30: * Repeat random demonstrated some minimal clearance 28.5 to 25.1 today. Patient not to be dialyzed again until tomorrow. Plan to consider a redose of 0-500mg tomorrow after HD session. Plan Vancomycin * 500mg (~5mg/kg) IV X 1 this afternoon (post dialysis) * Target trough level: ~15-20 mcg/mL * Will order a random level for tomorrow AM to guide further therapy around dialysis Ertapenem 500mg IV daily -- to be dosed following HD sessions on HD days Pharmacy will continue to follow and will adjust dose/frequency as necessary. Thank you. Pharmacy has transitioned to AUC monitoring for vancomycin. AUC/YING is the preferred PK/PD target and is associated with decreased risk of nephrotoxicity compared to traditional trough targets.
--- NOTE | 2022-10-01 14:31 | Hospitalist Progress Note ---
Date of Service October 01, 2022 Assessment & Plan (1) End-stage renal disease on hemodialysis: (2) Uremic encephalopathy: (3) Hyperkalemia: (4) Missed dialysis: (5) Status post fall: (6) Anemia of chronic disease: (7) HTN (hypertension): (8) DM2 (diabetes mellitus, type 2): (9) Depression with anxiety: Plan Patient is a complex 36 y/o non-compliant ESRD HD patient presents s/p fall and elevated creatinine 15.68; K+ 5.9. Stat HD in dialysis suite. Patient with signs of uremic encephalopathy. Imaging negative s/p fall. Pt s/p renal tx 2013. Other history: Depression and anxiety and Dm2. She is being managed for the following: ESRD Uremic encephalopathy Hyperkalemia due to above Non compliant with dialysis Volume overload due to above --Chest x-ray:Cardiomegaly with pulmonary vascular congestion. Appreciate nephrology input Monitor potassium, renal function Hemodialysis as per nephrology Neck/Facial Cellulitis Sialoadenitis. No abscess on imaging --Repeat CT head:No acute intracranial abnormality. --Neck CT:Asymmetric subcutaneous fat stranding/edema with left neck skin thickening and mild left cervical lymphadenopathy. The left sternocleidomastoid muscle is also edematous and mildly enlarged. This could be due to a cellulitis or less likely posttraumatic changes. No abscess identified. --Repeat Neck CT:Asymmetric subcutaneous edema and skin thickening of the left neck suggestive of cellulitis, now extending into the submandibular tissues and right face. No abscess. Mild enlargement and heterogeneity of the submandibular glands. Correlate clinically to exclude an associated sialoadenitis. --Blood Cultures x multiple: No growth to date - ID evaled 09/27: recommends amoxicillin challenge test, and then unasyn plus vancomycin; until then ertapenem 2/3 and vanco 2/3. Possible 10-14 day therapy. Vanc dosing per pharmacy. 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 - d/w ENT, ent evaled, appreciate recs. --Clinically improving S/P Fall: H/O recurrent falls which she attributes to broken bed Denies any domestic abuse. Also denies any safety concerns --Head CT:No acute intracranial abnormality. --Neck CT:No acute cervical spine fracture or subluxation. Mild edema within the soft tissues of the neck, including prevertebral edema at the level of the mid cervical spine. This edema is a nonspecific finding. --Shoulder X ray:No fractures within the left shoulder or left humerus. Fall precautions Minimize sedative meds as able Anemia of chronic disease: Thrombocytopenia Hb at baseline No bleeding issues Monitor CBC HTN: BP variable c/w home amlodipine, carvedilol Monitor BP DM II with peripheral neuropathy: Non-insulin dependent On gabapentin Diet controlled A1c of 5.9 08/16 Continue Insulin while hospitalized Depression and anxiety: On Trazodone and sertraline Also on lorazepam prior to dialysis Denies suicidal ideation Appreciate Psychiatry Input DVT Px: SCDs Re: Head trauma, Anemia/Thrombocytopenia, H/O GI Bleed CODE STATUS: Full code Dispo: likely dc don w/ iv atb ; peripheral usg iv line. Admission and Anticipated Discharge Date Admission Date: September 19, 2022 Subjective Patient seen and examined at bedside as a follow-up of uremic encephalopathy secondary to missed hemodialysis, [patient is noncompliant with dialysis], neck/facial cellulitis/sialoadenitis and status post fall. Patient was lying in bed, undergoing hemodialysis, on room air, NAD, reports no new acute event overnight, reports going improvement in swelling and pain of her left neck, reports eating ok, but has been moving bowels okay. Denies any chest pain or shortness of breath or dizziness or wheezing or nausea or abdominal pain. Denies difficulty swallowing. Regarding discussion of need of amox challenge test, see communication note from myself dated today. Physical Exam Physical Exam: GENERAL: Alert and oriented x3. NAD, on RA. Obese class I. HEENT: No pallor, no icterus. Pupils equal, round and reactive to light. Oral mucosa moist. NECK: No JVD, no neck masses. trachea midline, Left neck erythema w/ swelling Lt neck and anterior neck, minimal warmth and minimal tender--has been stable, slow improvement w/ erythema. No fluctuation noted. HEART: S1 and S2 heard. Regular rate and rhythm. No murmur, no gallop. RESPIRATORY SYSTEM: Normal AP diameter. No accessory muscle use. No wheezing, no crackles. ABDOMEN: Soft, bowel sounds present, nontender, no distention. CENTRAL NERVOUS SYSTEM: No facial droop. Speech is clear. Obeys simple c ommands. Moves extremities. EXTREMITIES: No edema, no erythema seen. Results & Data Results & Data ([facility]) Vital Signs (Past 12 Hours) Vital Signs Temp Pulse Pulse Pulse Resp BP BP 10/01/22 13:37 10/01/22 13:25 104/73 10/01/22 13:20 105/72 10/01/22 13:21 36.8 C 93 H 16 10/01/22 13:15 36.8 C 92 H 16 10/01/22 12:18 36.3 C L 88 109/71 10/01/22 12:47 36.8 C 92 H 18 10/01/22 12:00 92 H 113/70 10/01/22 11:30 88 92/62 L 10/01/22 11:00 90 123/78 10/01/22 10:30 86 117/78 10/01/22 10:00 100 H 122/75 10/01/22 09:30 87 150/102 H 10/01/22 08:00 10/01/22 09:00 81 135/97 10/01/22 08:51 80 118/97 10/01/22 08:44 36.7 C 81 10/01/22 07:54 36.8 C 81 16 10/01/22 06:57 84 10/01/22 03:00 36.9 C 86 18 121/84 BP Pulse Ox O2 Del Method 10/01/22 13:37 105/72 10/01/22 13:25 10/01/22 13:20 10/01/22 13:21 108/75 99 Room Air 10/01/22 13:15 89/65 L 99 Room Air 10/01/22 12:18 10/01/22 12:47 88/65 L 100 Room Air 10/01/22 12:00 10/01/22 11:30 10/01/22 11:00 10/01/22 10:30 10/01/22 10:00 10/01/22 09:30 10/01/22 08:00 Room Air 10/01/22 09:00 10/01/22 08:51 10/01/22 08:44 10/01/22 07:54 130/85 99 Room Air 10/01/22 06:57 10/01/22 03:00 97 Room Air (1) HTN (hypertension) Hypertension type: unspecified Qualified Code(s): I10 - Essential (primary) hypertension (2) DM2 (diabetes mellitus, type 2) Diabetes mellitus long term care phlebotomist insulin use: without fdc use Diabetes mellitus complication status: with unspecified complications Qualified Code(s): E11.8 - Type 2 diabetes mellitus with unspecified complications
[2022-10-01] MEDS: AMPICILLIN/SULBACTAM SOD 3,000 MG in 0.9 % SODIUM CHLORIDE 100 ML IV SCH (15:15)
[2022-10-01] MEDS ORDERED: VANCOMYCIN HCL 500 MG in DEXTROSE 5% 100 ML IV ONE (16:00)
[2022-10-01] MEDS: CINACALCET HCL 30 MG TAB PO SCH (16:47)
[2022-10-01] MEDS ORDERED: traZODone HCL 100 MG TAB PO PRN (19:50)
[2022-10-01] MEDS: amLODIPine BESYLATE 5 MG TAB PO SCH (21:14)
[2022-10-02] MEDS: AMPICILLIN/SULBACTAM SOD 3,000 MG in 0.9 % SODIUM CHLORIDE 100 ML IV SCH (02:01)
[2022-10-02] MEDS: INSULIN ASPART PER UNIT SC SCH ×2 (08:21→12:00)
[2022-10-02] MEDS: FLUTICASONE/VILANTEROL 200/25MCG 14 PUFFS/INHALER INH SCH (08:22)
[2022-10-02] MEDS: DOCUSATE SODIUM 100 MG CAP PO SCH (08:22)
[2022-10-02] MEDS: FLUTICASONE PROPIONATE NA SPR 16 GM BTL SCH (08:22)
[2022-10-02] MEDS: carvediloL 3.125 MG TAB PO SCH (08:22)
[2022-10-02] MEDS: DICLOFENAC SOD 1% GEL 100 GM TUBE EXT SCH (08:22)
[2022-10-02] MEDS: NEPHROCAPS PO SCH (08:23)
[2022-10-02] MEDS: PANTOprazole 40 MG TAB PO SCH (08:23)
[2022-10-02] MEDS: CALCIUM ACETATE 667 MG CAP/TAB PO SCH ×2 (08:23→12:12)
[2022-10-02] MEDS: GABAPENTIN 100 MG CAP PO SCH (08:23)
[2022-10-02] MEDS: SERTRALINE HCL 50 MG TABLET PO SCH (08:23)
[2022-10-02 08:50] LABS: Creatinine Clr Calc Pharmacy 13.2 ml/min; Est GFR (African American) 8.7 ml/min; Est GFR (Non-African American) 7.5 ml/min
[2022-10-02] MEDS ORDERED: ADVANCED PROBIOTIC 1250 MG CAPSULE PO SCH (09:00)
--- NOTE | 2022-10-02 10:53 | Nephrology Progress Note ---
Date of Service October 02, 2022 Assessment & Plan Admission and Anticipated Discharge Date Admission Date: September 19, 2022 Subjective Subjective Assessment & Plan (1) Inflammation of soft tissue: Plan: Challenge test cancelled. Now on Unasyn. (2) End-stage renal disease on hemodialysis: Plan: HD tomorrow. (3) Anemia of chronic disease: Plan: Improving. Max dose epo w/ Dialysis. Also she misses a lot so does not get enough EMILY and Iron Subjective Feels fine. No new issues. Seen by ENT but no abscess seen. Review of Systems Review of Systems: All systems reviewed & are unremarkable except as noted in Subjective Physical Exam Constitutional: well developed and well nourished; no acute distress Eyes: EOM intact bilaterally ENMT: Ears: no external ear abnormality Nose: no external nose abnormality (apart from smalllacerations) Mouth: + dry oral mucous membranes Neck: + neck tender (L SCM, less today and red / hot), + thick neck and + limited neck extension; no neck crepitus and no nuchal rigidity Respiratory: normal respiratory effort; no respiratory distress, no audible wheezes and no stridor Auscultation: + diminished lung sounds Cardiovascular: Rate/Rhythm: regular rate and regular rhythm Extremities: + AV fistula; no edema Gastrointestinal (Abdomen): Inspection/Auscultation: normal bowel sounds Percussion/Palpation: abdomen soft; abdomen nontender Musculoskeletal: Extremities: strength 5/5 throughout Skin: no rashes, warm and dry Results & Data ([facility]) Vital Signs (Past 12 Hours) Vital Signs Temp Pulse Pulse Resp BP BP Pulse Ox 10/02/22 07:30 36.9 C 86 16 172/71 H 97 10/02/22 07:15 76 10/02/22 04:00 36.9 C 81 18 96/69 L 97 10/02/22 00:52 85 10/02/22 00:11 36.6 C 89 18 103/73 100 O2 Del Method 10/02/22 07:30 Room Air 10/02/22 07:15 10/02/22 04:00 Room Air 10/02/22 00:52 10/02/22 00:11 Room Air
--- NOTE | 2022-10-02 11:54 | Discharge Summary ---
Date of Service October 02, 2022 Admission HPI Per Admitting Provider Ms. Arguello is a 36-year-old female who presented to the [facility] via EMS status post experiencing a fall at home while she was getting out of bed and hit her head on her nightstand. She is not on any anticoagulation. Cervical and spinal CT mild edema of soft tissues, shoulder and humeral x-ray negative. Head CT, negative. Patient is a complex ESRD on HD patient that was recently admitted and discharged on 09/12/2022 and reports she has not reported to dialysis since her discharge. Past medical history significant for hypertension, ESRD on HD history of FSGS status post failed renal transplantation x2, [id number] diabetes mellitus type 2, anxiety and depression, anemia of chronic disease (baseline hemoglobin 8-9), osteoarthritis. Patient unfortunately has had multiple emergency room visits and hospitalizations since 2018. In ED potassium 5.9. Calcium, insulin and dextrose administered in ED. Stat nephrology consult placed and patient directly taken to dialysis suite for urgent treatment session. Patient having signs of uremic encephalopathy with some confusion but is able to answer some questions appropriately. Patient became tearful during our conversation and stated she just needed a break from her home situation. She said she does not like to leave her bedroom due to home complications with her [id number]. Discussed developing additional coping mechanisms that would set her up for a successful situation due to her chronic illness. Patient states that she lives with her , 17-year-old son and twin [id number]. Patient denies suicidal ideation or suicidal attempt. Lengthy conversation held regarding the severity of her disease and importance of continuation of compliant treatments. Patient is receptive to behavioral [facility] liaison conversation. Patient will be admitted for further evaluation and management. Please see A/P for further details. Admission Exam Per Admitting Provider Neuro: AAOx4, PERRLA, no aphagia, memory changes, CNII-XII grossly intact HEENT: head normocephalic, moist mucus membranes. Some soft tissue swelling on her face s/p fall CV: S1/S2, (-) M/G/R, (-) edema, cap refill < 3 seconds Resp: Lungs CTA in all snow. On RA GI: Abdomen S/NT/ND, Ax4 bowel sounds, (-) CVA tenderness Musculoskeletal: 5/5 B/L UE strength, 5/5 B/L LE strength. No gait disturbance Skin: (-) rashes , (-) erythema. (+) generalized peticheal rash Psych: tearful mood Principal Diagnosis End-stage renal disease on hemodialysis Uremic encephalopathy Hyperkalemia Neck/face cellulitis Fall Discharge Exam GENERAL: Alert and oriented x3. NAD, on RA. Obese class I. HEENT: No pallor, no icterus. Pupils equal, round and reactive to light. Oral mucosa moist. NECK: No JVD, no neck masses. trachea midline, Left neck erythema w/ swelling Lt neck and anterior neck, warmth and tender has improved significantly, slow improvement w/ erythema. No fluctuation noted. HEART: S1 and S2 heard. Regular rate and rhythm. No murmur, no gallop. RESPIRATORY SYSTEM: Normal AP diameter. No accessory muscle use. No wheezing, no crackles. ABDOMEN: Soft, bowel sounds present, nontender, no distention. CENTRAL NERVOUS SYSTEM: No facial droop. Speech is clear. Obeys simple commands. Moves extremities. EXTREMITIES: No edema, no erythema seen. Discharge Data Allergies Allergy/AdvReac Type Severity Reaction Status Date / Time cefaclor Allergy Intermediate Rash Verified 10/01/22 11:54 amoxicillin AdvReac Intermediate VOMITING Verified 10/01/22 11:54 clavulanic acid AdvReac Intermediate VOMITING Verified 10/01/22 11:54 Consultations 09/19/22 15:00 ED Decision to Admit Stat 09/19/22 15:36 Consult Nephrology Stat 09/19/22 16:46 Consult Behavioral Health Liaison Routine 09/23/22 23:52 Consult Otolaryngology (Head and Neck) Routine 09/24/22 08:24 Consult Psychiatry Routine 09/25/22 09:31 Consult Infectious Diseases Routine Ordered Studies 09/19/22 13:11 CT cervical spine wo con Stat CT head/brain wo con Stat 09/20/22 23:46 CT head/brain wo con Stat 09/23/22 22:06 CT head/brain wo con Urgent CT soft tissue neck w con Urgent 09/25/22 09:32 CT soft tissue neck w con Urgent Hospital Course (1) End-stage renal disease on hemodialysis: (2) Uremic encephalopathy: (3) Hyperkalemia: (4) Missed dialysis: (5) Status post fall: (6) Anemia of chronic disease: (7) HTN (hypertension): (8) DM2 (diabetes mellitus, type 2): (9) Depression with anxiety: Plan Patient is a complex 36 y/o non-compliant ESRD HD patient presents s/p fall and elevated creatinine 15.68; K+ 5.9. Stat HD in dialysis suite. Patient with signs of uremic encephalopathy. Imaging negative s/p fall. Pt s/p renal tx 2013. Oth er history: Depression and anxiety and Dm2. She was managed for the following: ESRD Uremic encephalopathy Hyperkalemia due to above Non compliant with dialysis Volume overload due to above --Chest x-ray:Cardiomegaly with pulmonary vascular congestion. Appreciate nephrology input Monitor potassium, renal function Hemodialysis as per nephrology Neck/Facial Cellulitis Sialoadenitis. No abscess on imaging --Repeat CT head:No acute intracranial abnormality. --Neck CT:Asymmetric subcutaneous fat stranding/edema with left neck skin thickening and mild left cervical lymphadenopathy. The left sternocleidomastoid muscle is also edematous and mildly enlarged. This could be due to a cellulitis or less likely posttraumatic changes. No abscess identified. --Repeat Neck CT:Asymmetric subcutaneous edema and skin thickening of the left neck suggestive of cellulitis, now extending into the submandibular tissues and right face. No abscess. Mild enlargement and heterogeneity of the submandibular glands. Correlate clinically to exclude an associated sialoadenitis. --Blood Cultures x multiple: No growth to date - ID evaled 09/27: recommends amoxicillin challenge test, and then unasyn plus vancomycin; until then ertapenem 2/3 and vanco 2/3. Possible 10-14 day therapy. Vanc dosing per pharmacy. - re-d/w ID 10/01 and d/w licensed practical nurse instructor cotton classer 10/01 -- no need for amox challenge test, will change ertapenem to unasyn 10/01, c/w vanc /. ---to augmentin and doxy on dc on 10/02. - ENT evaled, appreciate recs. --Clinically improving, re-d/w ID 10/02 in detail regarding atb choice and duration; pt being dc'd on augmentin and doxy for now, pt to be evaled by her PCP in 5-7 days and to determine if she is improving, if not she will need iv antibiotic arranged outpatient from PCP office. same has been communicated to the patient who verbalised understanding. S/P Fall: H/O recurrent falls which she attributes to broken bed Denies any domestic abuse. Also denies any safety concerns --Head CT:No acute intracranial abnormality. --Neck CT:No acute cervical spine fracture or subluxation. Mild edema within the soft tissues of the neck, including prevertebral edema at the level of the mid cervical spine. This edema is a nonspecific finding. --Shoulder X ray:No fractures within the left shoulder or left humerus. Fall precautions Minimize sedative meds as able Anemia of chronic disease: Thrombocytopenia Hb at baseline No bleeding issues Monitor CBC HTN: BP variable c/w home amlodipine, carvedilol Monitor BP DM II with peripheral neuropathy: Non-insulin dependent On gabapentin Diet controlled A1c of 5.9 08/16 Continue Insulin while hospitalized Depression and anxiety: On Trazodone and sertraline Also on lorazepam prior to dialysis Denies suicidal ideation Appreciate Psychiatry Input DVT Px: SCDs Re: Head trauma, Anemia/Thrombocytopenia, H/O GI Bleed CODE STATUS: Full code Pt being discharged to home w/ following instructions at the point of discharge: Follow-up with your primary care physician within a week of discharge; follow up on progress of your left neck cellulitis with your PCP office, until then you can continue your PO antibiotic as prescribed on discharge. If worsening, you might need iv antibiotic to be set up by your PCP office. You are being discharged on PO antibiotics for 10 days, duration might vary upon re-assessment at your PCP office. Probiotic is also added. Follow-up with your fairground operator as prior. Maintain your dialysis per schedule. Seek immediate medical attention if your symptoms reoccur or worsen Please take all medications as instructed on discharge list below. Please call if you have any questions or problems. You can reach a [facility] hospitalist on duty at [facility] 24 hours a day by calling [phone] Please make sure that you are able to get your medications today by calling your pharmacy before you leave the hospital so that your treatment continuity is not broken. Home Health Attestation I certify that this patient is under my care and that I, or a physicians assistant real estate manager working with me, had a face to-face encounter that meets the home health [id number] encounter requirements with this patient. The encounter with the patient was in whole, or in part, for the following medical condition, which is the primary reason for home health care (list medical condition): I certify that, based on my findings, the following services are medically necessary home health services: My clinical findings support the need for the above services because: Further, I certify that my clinical findings support that this patient is homebound (i.e. absences from home require considerable and taxing effort and are for medical reasons or spiritism services or infrequently or of short duration when for other reasons) because: Certification for Home Health Services: Based on the above findings, I certify that this patient is confined to the home and needs intermittent [facility] care, physical therapy and/or speech therapy or continues to need occupational therapy. The patient is under my care, and I have initiated the establishment of the plan of care. This patient will be followed by a physician who will periodically review the plan of care. Total Time Total Time Spent Total Time Spent (In Minutes): 55 Discharge Plan Discharge Items Patient Disposition: Home - Self-Care Reason For Visit: S/P FALL; ESRD Discharge Diagnosis: End-stage renal disease on hemodialysis Uremic encephalopathy Hyperkalemia Neck/face cellulitis Fall Activity: Per Instructions section Exercise/Sports: Gradually increase as tolerated Non-emergency contact: Primary Care Provider and Parachute Harness Rigger Call non-emergency contact if: you have any medication questions, your symptoms worsen, your pain is concerning for you and you have a fever Follow-up/Referrals: Adolph Aldridge MD [Primary Care Provider] - (Date & Time 10/08/2022 3:00 PM Provider Adolph Aldridge MD [facility] ) Diet: Dialysis Renal Diet Texture: Easy to Chew Addtl Attending Provider Instructions: Follow-up with your primary care physician within a week of discharge; follow up on progress of your left neck cellulitis with your PCP office, until then you can continue your PO antibiotic as prescribed on discharge. If worsening, you might need iv antibiotic to be set up by your PCP office. You are being discharged on PO antibiotics for 10 days, duration might vary upon re-assessment at your PCP office. Probiotic is also added. Follow-up with your fairground operator as prior. Maintain your dialysis per schedule. Seek immediate medical attention if your symptoms reoccur or worsen Please take all medications as instructed on discharge list below. Please call if you have any questions or problems. You can reach a [facility] hospitalist on duty at [facility] 24 hours a day by calling [phone] Please make sure that you are able to get your medications today by calling your pharmacy before you leave the hospital so that your treatment continuity is not broken. Pending Studies at Discharge: No Stand-Alone Forms: My [facility], Smoking Cessation Medications and DC Order Prescriptions: New Advanced Probiotic 625 mg (10 billion cell) Capsule 2 cap PO DAILY 14 Days Qty: 28 0RF amoxicillin-pot clavulanate [Augmentin] 500-125 mg tablet 1 tab PO DAILY 10 Days Qty: 10 0RF Rx Instructions: 1 tab daily; on dialysis day take medicine after dialysis. doxycycline hyclate 100 mg tablet 100 mg PO BID 10 Days Qty: 20 0RF Continued calcium acetate(phosphat bind) 667 mg capsule 2,001 mg PO TIDM Rx Instructions: 3 tabs with meals sertraline 100 mg tablet 150 mg PO QAM Rx Instructions: 1 & 1/2 TABLET DOSE carvedilol 3.125 mg tablet 3.125 mg PO BID hydroxyzine HCl 25 mg tablet 25 mg PO Q6 PRN (Reason: Anxiety) albuterol sulfate 90 mcg/actuation HFA aerosol inhaler 2 puff INHALATION QID PRN (Reason: Shortness Of Breath) amlodipine 10 mg Tablet 10 mg PO HS Renal Vitamin 0.8 mg Tablet 1 tab PO QAM lorazepam 0.5 mg tablet 0.5 mg PO Q8 PRN (Reason: anxiety and before dialysis) medroxyprogesterone [Depo-Provera] 150 mg/mL suspension 150 mg IM Q90D cinacalcet [Sensipar] 30 mg Tablet 60 mg PO QDD Rx Instructions: Takes with evening meal gabapentin [Neurontin] 400 mg capsule 400 mg PO AMHS albuterol sulfate 2.5 mg /3 mL (0.083 %) Solution For Nebulization 2.5 mg INHALATION Q4H PRN (Reason: Wheezing) ondansetron HCl 4 mg Tablet 4 mg PO Q6H PRN (Reason: Nausea) trazodone 100 mg tablet 200 mg PO HS fluticasone propionate [Flonase Allergy Relief] 50 mcg/actuation [place],Suspension 2 spray INTRANASAL DAILY Rx Instructions: administer into each nostril oxycodone-acetaminophen [Percocet] 5-325 mg tablet 1 tab PO Q8 PRN (Reason: severe pain) dicyclomine 10 mg capsule 10 mg PO QID PRN (Reason: cyst) omeprazole 20 mg capsule,delayed release(DR/EC) 20 mg PO AMHS Dulera 200-5 mcg/actuation HFA aerosol inhaler 2 puff INHALATION BID diclofenac sodium [Voltaren Arthritis Pain] 1 % Gel 2 g EXT TID Qty: 100 0RF Rx Instructions: Left Shoulder Discharge Orders: Discharge Order (Routine); Ordered 10/02/22 Ordered By: Juwan Jackson Admission Data Admit Date/Time: 09/19/22 15:36 Attending Provider: Juwan Jackson Admit Provider: Juan Victor Primary Care Provider: Adolph Aldridge Other Providers: Juan Victor ; Jameel Wilson ; Tami Darby ; Eusebio Tapia ; Cinthya Martinez ; Norman Chinchilla ; Jena Short ; Berta Ragsdale ; Adolph Rush ; Manjit Marcus ; Emmanuel Swan ; Martin Jaramillo I. ; Max Hastings II ; Jackie Phipps ; Adolph Connelly ; Carmelo Mathews ; Harsha De La Cruz
== END 2022-10-02 12:39 | disposition home or self-care (01) | DRG 70 ==
LOC: ED 12:34 → SUATTDRO 15:36 → EDINP 15:36 → 2N 23:43

== ENCOUNTER 2022-10-31 09:12 | Inpatient (IN) ==
[2022-10-31] MEDS ORDERED: MoRPHine SULFATE 4 MG/ML 1 ML CARP\\VIAL IV STA (09:32)
[2022-10-31] MEDS ORDERED: ONDANSETRON INJ 2 MG/ML 2 ML VIAL IV STA (09:34)
--- NOTE | 2022-10-31 09:44 | Emergency Department Note ---
History of Present Illness General Chief complaint: Cardiac Assessment Stated complaint: CHEST PAIN Time Seen by Provider: 10/31/22 09:20 History of Present Illness 36 year old female with PMH significant for ESRD on dialysis MWF via R arm AVF, TIIDM, CHF, anemia of chronic disease, who presents to ED today with c/o midsternal chest pain, vomiting and diarrhea. Patient states she started with GI symptoms over the weekend. She began with midsternal chest pain with radiation to her left chest wall yesterday. It is constant in nature and described as sharp. It is not associated with exertion. She does note associated shortness of breath. She states she has not had a full dialysis session since last Saturday. She denies lower extremity swelling. She only took her Ativan this morning and none of her other home meds. She denies fever, chills, cold-like symptoms, abdominal pain. She has been having blood in her stool for months and was scheduled for a colonoscopy a while ago but never got it due to being admitted to hospital. She notes that it has decreased in frequency. She states she was told it was related to hemorrhoids. She denies dizziness/lightheadedness, syncope or presyncope. She has not taken anything for her symptoms. Home Medications Medication Instructions Recorded Confirmed Type carvedilol 3.125 mg tablet 3.125 mg PO BID 12/21/19 10/31/22 History hydroxyzine HCl 25 mg tablet 25 mg PO Q6 PRN Anxiety 04/21/20 10/31/22 History calcium acetate(phosphat bind) 667 2,001 mg PO TIDM 06/22/20 10/31/22 History mg capsule albuterol sulfate 90 mcg/actuation 2 puff inhalation QID PRN 08/01/20 10/31/22 History aerosol inhaler Shortness Of Breath sertraline 100 mg tablet 150 mg PO QAM 08/02/20 10/31/22 History amlodipine 10 mg tablet 10 mg PO HS 08/10/20 10/31/22 History vitamin B complex-vitamin C-folic 1 tab PO QAM 08/10/20 10/31/22 History acid 0.8 mg tablet (Renal Vitamin) cinacalcet 30 mg tablet (Sensipar) 60 mg PO QDD 03/06/21 10/31/22 History lorazepam 0.5 mg tablet 0.5 mg PO Q8 PRN anxiety and 03/06/21 10/31/22 History before dialysis medroxyprogesterone 150 mg/mL 150 mg IM Q90D 03/06/21 10/31/22 History intramuscular suspension (Depo-Provera) gabapentin 400 mg capsule 400 mg PO AMHS 06/27/21 10/31/22 History (Neurontin) dicyclomine 10 mg capsule 10 mg PO QID PRN cyst 01/19/22 10/31/22 History mometasone-formoterol HFA 200 2 puff inhalation BID 01/19/22 10/31/22 History mcg-5 mcg/actuation aerosol inhaler (Dulera) omeprazole 20 mg capsule,delayed 20 mg PO AMHS 01/19/22 10/31/22 History release albuterol sulfate 2.5 mg/3 mL 2.5 mg inhalation Q4H PRN Wheezing 09/19/22 10/31/22 History (0.083 %) solution for nebulization fluticasone propionate 50 2 spray intranasal DAILY 09/19/22 10/31/22 History mcg/actuation nasal spray,suspension (Flonase Allergy Relief) ondansetron HCl 4 mg tablet 4 mg PO Q6H PRN Nausea 09/19/22 10/31/22 History trazodone 100 mg tablet 200 mg PO HS 09/19/22 10/31/22 History Allergies Allergy/AdvReac Type Severity Reaction Status Date / Time cefaclor Allergy Intermediate Rash Verified 10/31/22 09:57 amoxicillin AdvReac Intermediate VOMITING Verified 10/31/22 09:57 clavulanic acid AdvReac Intermediate VOMITING Verified 10/31/22 09:57 Past Med/Surg History Medical History (Updated 10/31/22 @ 16:41 by Rosibel Vasquez PA-C) Anemia due to end stage renal disease Anemia of chronic disease Anxiety Anxiety and depression Asthma "BEEN A WHILE" SINCE USING LAST RESCUE INHALER AVF (arteriovenous fistula) bilt---currently using right for dialysis Bipolar disorder CKD (chronic kidney disease) stage V requiring chronic dialysis Depression Depression with anxiety Dialysis patient SATURDAY/SAT/SATURDAY AT [facility] DM2 (diabetes mellitus, type 2) DM2 (diabetes mellitus, type 2) DVT prophylaxis ESRD (end stage renal disease) on dialysis ESRD (end stage renal disease) on dialysis Fistula right arm (currently being used) and left arm FSGS (focal segmental glomerulosclerosis) DX INITIALLY 2012 (CAUSING ESRD 2012) GERD (gastroesophageal reflux disease) History of abnormal cervical Papanicolaou smear HTN (hypertension) Peripheral neuropathy Prolonged QT interval Restless leg syndrome Status post fall Symptomatic anemia Tobacco abuse Surgical History H/O eye surgery LASER SURGERY LEFT H/O hernia repair ABDOMINAL WALL H/O knee surgery LEFT KNEE X 2 H/O tubal ligation H/O: X 2 History of cardiac cath 2016 NO STENTS History of cholecystectomy History of colonoscopy History of surgery (~09/09/20) perm cath replacement History of surgery left arm d/t clot in arm from AV fistula use @ [facility] History of tooth extraction three TOOTH Kidney transplant recipient 2013 AT [facility] S/P arteriovenous (AV) fistula creation right arm Family History Grandmother Hx of CABG Mother Diabetes Father Crohn's disease Grandfather (Maternal) Diabetes Uncle Diabetes Grandmother (Maternal) Family history of reaction to anesthesia difficulty waking with colonoscopy Social History Smoking Status: Current every day smoker Tobacco Type: Cigarettes Cigarettes Per Day: half a pack-she denies; Second Hand Exposure: Yes; Hx Alcohol Use: No Hx Substance Use: No Preferred Language: Estonian Communication Ability: Effective Loan Officer Assistant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 Beliefs That Will Affect Care: None marital status: Single Current Living Situation: Family Current Living Situation Comment: Lives with fiance and kids How many Children do You have: 3 Feels Safe at Home: Yes Assistive Devices: None Physical Exam Vital Signs Vital Signs - 24 hr 10/31/22 09:20 10/31/22 09:32 10/31/22 09:22 Temperature 36.4 C L Temperature Source Oral Pulse Rate 85 88 Pulse Rate from SpO2 Sensor Respiratory Rate 20 Respiratory Effort / Characteristics Non-Labored Spontaneous Respiratory Depth Normal Respiratory Pattern Regular Blood Pressure 196/102 H Blood Pressure Mean 133 Blood Pressure Position Lying Pulse Oximetry 98 98 Oxygen Delivery Method Room Air Room Air Sepsis Recent Fever Within 48 Hours No Sepsis New/Unexplained Change in Mental Status N/A Sepsis Action Taken by Nursing No Action Required 10/31/22 09:30 10/31/22 10:00 10/31/22 10:01 Temperature Temperature Source Pulse Rate 89 90 81 Pulse Rate from SpO2 Sensor 87 Respiratory Rate 10 L 14 17 Respiratory Effort / Characteristics Respiratory Depth Respiratory Pattern Blood Pressure Blood Pressure Mean Blood Pressure Position Pulse Oximetry 99 Oxygen Delivery Method Sepsis Recent Fever Within 48 Hours Sepsis New/Unexplained Change in Mental Status Sepsis Action Taken by Nursing 10/31/22 10:01 10/31/22 10:35 10/31/22 11:00 Temperature Temperature Source Pulse Rate Pulse Rate from SpO2 Sensor Respiratory Rate 17 Respiratory Effort / Characteristics Respiratory Depth Respiratory Pattern Blood Pressure 162/105 H 178/110 H Blood Pressure Mean 124 132 Blood Pressure Position Pulse Oximetry Oxygen Delivery Method Sepsis Recent Fever Within 48 Hours Sepsis New/Unexplained Change in Mental Status Sepsis Action Taken by Nursing 10/31/22 11:00 Temperature Temperature Source Pulse Rate 82 Pulse Rate from SpO2 Sensor Respiratory Rate 23 Respiratory Effort / Characteristics Respiratory Depth Respiratory Pattern Blood Pressure Blood Pressure Mean Blood Pressure Position Pulse Oximetry Oxygen Delivery Method Sepsis Recent Fever Within 48 Hours Sepsis New/Unexplained Change in Mental Status Sepsis Action Taken by Nursing Constitutional: alert and oriented x3. no acute distress. continues to fall asleep during exam. HEENT: normocephalic, atraumatic. Respiratory: lungs are clear to auscultation without wheezes, rhonchi, or rales bilaterally. equal chest rise. normal respiratory effort, no accessory muscle use. Cardiovascular: normal heart sounds without murmur. regular rate and rhythm. without peripheral edema GI: abdomen is soft, nontender. nl bowel sounds present throughout. No palpable masses. No rebound tenderness or guarding. Peripheral vascular: lower extremities warm and well perfused. Palpable thrill R AVF Neuro: without focal neuro deficits. Answers questions appropriately Psych:appropriate mood and affect. Course Administered Medications Tramadol HCl (Tramadol Hcl 50 Mg Tablet) 50 mg PO Q6H PRN PRN Reason: Severe Pain (Scale 7, 8, 9,10) Stop: 11/30/22 13:29 Last Admin: 10/31/22 16:23 Dose: 50 mg Documented By: [id number] Discontinued Medications Heparin Sodium (Porcine) (Heparin Sod (Porcine) 1000 Unit/Ml) 2,000 units IV ONE ONE Stop: 10/31/22 11:51 Last Admin: 10/31/22 13:47 Dose: Not Given Documented By: CC Heparin Sodium (Porcine) (Heparin Sod (Porcine) 1000 Unit/Ml) 400 units IV Q1H [facility] Stop: 10/31/22 14:01 Last Admin: 10/31/22 16:35 Dose: Not Given Documented By: Admin: 10/31/22 16:35 Dose: Not Given Documented By: Admin: 10/31/22 13:47 Dose: Not Given Documented By: CC Morphine Sulfate (Morphine Sulfate 4 Mg/Ml 1 Ml Carp\\Vial) 2 mg IV NOW STA Stop: 10/31/22 09:33 Last Admin: 10/31/22 11:06 Dose: Not Given Documented By: NMS Ondansetron HCl (Ondansetron Inj 2 Mg/Ml 2 Ml Vial) 4 mg IV NOW STA Stop: 10/31/22 09:35 Last Admin: 10/31/22 11:06 Dose: Not Given Documented By: JAD Medical Decision Making Differential Diagnosis volume overload, CHF exacerbation, ABHILASH on CKD, ACS, MSK chest pain, pleural effusion, pulmonary embolism, pneumothorax, viral URI, as well as other pathologies Laboratory Data Attestation: I reviewed the patient's lab results. 10/31/22 09:39 10/31/22 13:05 Lab Results 10/31/22 10/31/22 10/31/22 Range/Units 09:39 09:39 09:45 WBC 5.77 (4.8-10.8) K/ul RBC 2.89 L (4.20-5.40) M/uL Hgb 9.4 L (12.0-16.0) g/dl Hct 28.9 L (37.0-47.0) % MCV 100.0 (80.0-100.0) fL MCH 32.5 (25.0-34.0) pg MCHC 32.5 (32.0-36.0) g/dL RDW Std Deviation 51.7 H (36.4-46.3) fL RDW Coeff of Laith 14.2 (11.5-14.5) % Plt Count 123 L (130-400) K/uL MPV 10.3 (9.4-12.4) fL Immature Gran % (Auto) 0.2 % Neut % (Auto) 77.7 % Lymph % (Auto) 13.3 % [place] % (Auto) 4.9 % Eos % (Auto) 3.6 % Baso % (Auto) 0.3 % Neut # (Auto) 4.48 (1.40-6.50) K/uL Lymph # (Auto) 0.77 L (1.2-3.4) K/uL [place] # (Auto) 0.28 (0.11-0.59) K/uL Eos # (Auto) 0.21 (0-0.50) K/uL Baso # (Auto) 0.02 (0-0.2) K/uL Immature Gran # (Auto) 0.01 (0.01-0.20) K/uL Sodium 134 L (136-145) mmol/L Potassium TNP Chloride 98 (98-107) mmol/L Carbon Dioxide 20 L (21-32) mmol/L Anion Gap 16 H (3-11) BUN 75 H (6-23) mg/dl Creatinine 14.68 H* (0.6-1.2) mg/dl Est Cr Clr Drug Dosing 6.3 ml/min Est GFR ( Amer) 3.3 ml/min Est GFR (Non-Af Amer) 2.8 ml/min BUN/Creatinine Ratio 5.1 L (10-20) Glucose 138 H (70-99(Fasting)) mg/dl Calcium 10.1 (8.5-10.1) mg/dl Magnesium 3.0 H (1.7-2.4) mg/dl Total Bilirubin 0.5 (0.2-1.0) mg/dl AST TNP ALT 12 (7-52) U/L Alkaline Phosphatase 74 (34-104) U/L Troponin I High Sens 58.3 H* (0-14) pg/ml Total Protein 7.3 (6.0-8.3) gm/dl Albumin 3.8 (3.4-5.0) gm/dl Globulin 3.5 (2.5-4.0) gm/dl Albumin/Globulin Ratio 1.1 (0.9-2) SARS-CoV-2, RNA, NAAT NEGATIVE (NEGATIVE) Imaging Data Attestation: I personally reviewed and interpreted this imaging study as follows: My Impression: Mild pulmonary congestion. No significant pleural effusion, pneumonia, or pneumothorax. Radiologist's Impression: Chest X-Ray 10/31/22 09:32 SINGLE VIEW CHEST CLINICAL HISTORY: Atypical chest pain. FINDINGS: An AP, portable, upright chest radiograph is compared to study dated 09/20/2022 and correlated with chest CT dated 03/20/2022. A stent projects over the mediastinum. The heart is enlarged. There is prominence of the pulmonary vasculature. The lungs and pleural spaces are clear. No pneumothorax is seen. The bony thorax is grossly intact. IMPRESSION: Cardiomegaly with prominence of the pulmonary vasculature. Correlate clinically for evidence of mild congestive change. ACT 112: Negative or not required by law. Electronically signed by: North Quintero M.D. 10/31/2022 10:26 AM MDM Narrative 36 year old female who presents to ED today with c/o midsternal chest pain and missed dialysis sessions. Review of pertinent visits and patient history performed. Vital signs in ED demonstrate hypertensive otherwise within normal limits. She is afebrile. IV access was established and labs were obtained. Labs demonstrate stable hgb at 9.4, without leukocytosis. CMP demonstrates Sodium of 134, potassium of 5.3, magnesium 3, creatinine elevated from baseline at 14.68, Troponin elevated at 58. EKG demonstrating NSR at a rate of 91 bpm without evidence of ST ischemic changes. CXR was performed and personally reviewed as well as interpreted by radiology and demonstrates mild pulmonary congestion. While in ED, patient was ordered for morphine and Zofran for pain control and nausea however due to persistent somnolence these were not given. Based on labs and imaging consistent with missed dialysis/acute on chronic renal failure, I felt admission to hospital was warranted. Consultation to utilization review specialist Nephrology, Dr. Saucedo was made who presented to bedside and recommended admission to hospitalist service with neph consult. Patient discussed with hospitalist VARUN, Kristine Suarez, who graciously accepted patient to their service for further work up and management. Patient will receive inpatient dialysis today per Dr. Saucedo. Case was discussed with attending, Dr. Allred, who agrees with work up and treatment plan. All exam findings and test results as well as recommendations for inpatient were discussed with patient who is agreeable to plan. She was admitted inpatient in stable condition. Impression & Plan Acute on chronic renal failure, End-stage renal disease on hemodialysis, Atypical chest pain, Acute hyperkalemia, Vomiting and diarrhea Discharge Plan Visit Data Chief Complaint: Cardiac Assessment Stated Complaint: CHEST PAIN ED Provider: Tremaine Allred ED Midlevel Provider: Rosibel Vasquez Discharge Problem: Acute on chronic renal failure, End-stage renal disease on hemodialysis, Atypical chest pain, Acute hyperkalemia, Vomiting and diarrhea Patient Disposition: Admitted As Inpatient Condition: Fair Discharge Instructions Interventions: ED Discharge Assessment Last Done: 10/31/22 13:29
[2022-10-31 10:03] LABS: Basophils # (auto) 0.02 K/uL (0-0.2); Basophils % (auto) 0.3 %; Eosinophils # (auto) 0.21 K/uL (0-0.50); Eosinophils % (auto) 3.6 %; Hematocrit (blood only) 28.9 % (37.0-47.0); Hemoglobin 9.4 g/dl (12.0-16.0); Immature Granulocytes # (auto) 0.01 K/uL (0.01-0.20); Immature Granulocytes % (auto) 0.2 %; Lymphocytes # (auto) 0.77 K/uL (1.2-3.4); Lymphocytes % (auto) 13.3 %; Mean Corpuscular Hemoglobin 32.5 pg (25.0-34.0); Mean Corpuscular Hgb Conc 32.5 g/dL (32.0-36.0); Mean Platelet Volume 10.3 fL (9.4-12.4); Monocytes # (auto) 0.28 K/uL (0.11-0.59); Monocytes % (auto) 4.9 %; Neutrophils # (auto) 4.48 K/uL (1.40-6.50); Neutrophils % (auto) 77.7 %; Platelet Count 123 K/uL (130-400); RDW Coefficient of Variation 14.2 % (11.5-14.5); RDW Standard Deviation 51.7 fL (36.4-46.3); Red Blood Count 2.89 M/uL (4.20-5.40); White Blood Count 5.77 K/ul (4.8-10.8)
[2022-10-31 10:24] LABS: Alanine Aminotransferase 12 U/L (7-52); Albumin Globulin Ratio 1.1 (0.9-2); Albumin Level 3.8 gm/dl (3.4-5.0); Alkaline Phosphatase 74 U/L (34-104); Anion Gap 16 (3-11); BUN Creatinine Ratio 5.1 (10-20); Bilirubin,Total 0.5 mg/dl (0.2-1.0); Blood Urea Nitrogen 75 mg/dl (6-23); Calcium 10.1 mg/dl (8.5-10.1); Carbon Dioxide 20 mmol/L (21-32); Chloride 98 mmol/L (98-107); Creatinine Clr Calc Pharmacy 6.3 ml/min; Est GFR (African American) 3.3 ml/min; Est GFR (Non-African American) 2.8 ml/min; Globulin 3.5 gm/dl (2.5-4.0); Glucose 138 mg/dl (70-99(Fasting)); Sodium 134 mmol/L (136-145); Total Protein 7.3 gm/dl (6.0-8.3)
[2022-10-31 10:25] LABS: Troponin I High Sensitivity 58.3 pg/ml (0-14)
--- NOTE | 2022-10-31 10:28 | XRay Report ---
SINGLE VIEW CHEST CLINICAL HISTORY: Atypical chest pain. FINDINGS: An AP, portable, upright chest radiograph is compared to study dated 09/20/2022 and correlat ed with chest CT dated 03/20/2022. A stent projects over the mediastinum. The heart is enlarged. There is prominence of the pulmonary vasculature. The lungs and pleural spaces are clear. No pneumothorax is seen. The bony thorax is grossly intact. IMPRESSION: Cardiomegaly with prominence of the pulmonary vasculature. Correlate clinically for evide nce of mild congestive change. ACT 112: Negative or not required by law. Electronically signed by: North Quintero M.D. 10/31/2022 10:26 AM
--- NOTE | 2022-10-31 11:22 | History & Physical Report ---
Date of Service October 31, 2022 Assessment & Plan (1) Chest pain: (2) HTN (hypertension): Plan: - Admit to tele - Trend cardiac biomarkers, initial set was 58, repeating now and then Q6H - EKG reviewed as above - Check 2 D echo- last was essentially normal. - PT/OT consulted - Noted elevated BP at time of admission, will resume home medications back in as she missed them this morning (3) FSGS (focal segmental glomerulosclerosis): (4) End-stage renal disease on hemodialysis: (5) Anemia of chronic disease: Plan: - Consult nephrology, pt has not received dialysis since last Saturday, reports that this is mostly due to social aspects [facility] Plan for HD today with Cr 14.68 and BUN 75 - Potassium is hemolyzing so unable to see that result currently. Mag 3.0 - AVF access in bilateral antecubital region, recently gets HD with the right AVF - Supportive care for nausea and vomiting, will check stool studies and cdiff to rule out, guiac stool - Hgb is 9.4, trend with am labs DVT ppx scds, ambulatory CODE: Full Dispo: From home, likely to remain in the hospital x 1-2 days History of Present Illness Chief Complaint: Chest pain Primary Care Provider: Adolph Aldridge MD This is a 36 yo F with PMHx significant for hypertension, ESRD on HD history of FSGS status post failed renal transplantation x2, [id number] diabetes mellitus type 2, anxiety and depression, anemia of chronic disease (baseline hemoglobin 8-9), osteoarthritis. Patient unfortunately has had multiple emergency room visits and hospitalizations since 2018. Today she presents to the hospital with acute onset of chest pain, sharp and stabbing in nature, and thinks it started over the weekend, at least 5 days ago, it moves to the left side of her chest, but notes it is a chronic pain, which does not worsen with exertional activity. Last night trialed Tylenol for pain but it did not alleviate it. She notes nausea and vomiting started last night and happened over 15 times. She does have some coughing prior to when she has nausea. She reports its brown watery diarrhea, denies melena, bright red blood or dark tarry sticky BMs. She has had a poor appetite overall, but at baseline only eats one meal per day. If she eats more than that then she gets nauseated and throws up. Pt denies any fever. Her dialysis scheduled is MWF at 9:45-1pm Pt notes her last session was Saturday, where she got a 1/2 session. She typically uses the [facility] and on Wednesdays she doesn't get home until right before her step-daughter gets home from school. She finds this stressful because she doesn't have time to prepare to be in "motherhood mode". Pt chose to not go to her session on Saturday because she didn't feel like it. Her fiance and mother in law lives in the home with her. Allergies Allergy/AdvReac Type Severity Reaction Status Date / Time cefaclor Allergy Intermediate Rash Verified 10/31/22 09:57 amoxicillin AdvReac Intermediate VOMITING Verified 10/31/22 09:57 clavulanic acid AdvReac Intermediate VOMITING Verified 10/31/22 09:57 Home Medications Medication Instructions Recorded Confirmed Type carvedilol 3.125 mg tablet 3.125 mg PO BID 12/21/19 10/31/22 History hydroxyzine HCl 25 mg tablet 25 mg PO Q6 PRN Anxiety 04/21/20 10/31/22 History calcium acetate(phosphat bind) 667 2,001 mg PO TIDM 06/22/20 10/31/22 History mg capsule albuterol sulfate 90 mcg/actuation 2 puff inhalation QID PRN 08/01/20 10/31/22 History aerosol inhaler Shortness Of Breath sertraline 100 mg tablet 150 mg PO QAM 08/02/20 10/31/22 History amlodipine 10 mg tablet 10 mg PO HS 08/10/20 10/31/22 History vitamin B complex-vitamin C-folic 1 tab PO QAM 08/10/20 10/31/22 History acid 0.8 mg tablet (Renal Vitamin) cinacalcet 30 mg tablet (Sensipar) 60 mg PO QDD 03/06/21 10/31/22 History lorazepam 0.5 mg tablet 0.5 mg PO Q8 PRN anxiety and 03/06/21 10/31/22 History before dialysis medroxyprogesterone 150 mg/mL 150 mg IM Q90D 03/06/21 10/31/22 History intramuscular suspension (Depo-Provera) gabapentin 400 mg capsule 400 mg PO AMHS 06/27/21 10/31/22 History (Neurontin) dicyclomine 10 mg capsule 10 mg PO QID PRN cyst 01/19/22 10/31/22 History mometasone-formoterol HFA 200 2 puff inhalation BID 01/19/22 10/31/22 History mcg-5 mcg/actuation aerosol inhaler (Dulera) omeprazole 20 mg capsule,delayed 20 mg PO AMHS 01/19/22 10/31/22 History release albuterol sulfate 2.5 mg/3 mL 2.5 mg inhalation Q4H PRN Wheezing 09/19/22 10/31/22 History (0.083 %) solution for nebulization fluticasone propionate 50 2 spray intranasal DAILY 09/19/22 10/31/22 History mcg/actuation nasal spray,suspension (Flonase Allergy Relief) ondansetron HCl 4 mg tablet 4 mg PO Q6H PRN Nausea 09/19/22 10/31/22 History trazodone 100 mg tablet 200 mg PO HS 09/19/22 10/31/22 History Past Med/Surg History Medical History (Updated 10/01/22 @ 12:59 by Toby Son, ) Anemia due to end stage renal disease Anemia of chronic disease Anxiety Anxiety and depression Asthma "BEEN A WHILE" SINCE USING LAST RESCUE INHALER AVF (arteriovenous fistula) bilt---currently using right for dialysis Bipolar disorder CKD (chronic kidney disease) stage V requiring chronic dialysis Depression Depression with anxiety Dialysis patient SATURDAY/SAT/SATURDAY AT [facility] DM2 (diabetes mellitus, type 2) DM2 (diabetes mellitus, type 2) DVT prophylaxis ESRD (end stage renal disease) on dialysis ESRD (end stage renal disease) on dialysis Fistula right arm (currently being used) and left arm FSGS (focal segmental glomerulosclerosis) DX INITIALLY 2012 (CAUSING ESRD 2012) GERD (gastroesophageal reflux disease) History of abnormal cervical Papanicolaou smear HTN (hypertension) Peripheral neuropathy Prolonged QT interval Restless leg syndrome Status post fall Symptomatic anemia Tobacco abuse Surgical History H/O eye surgery LASER SURGERY LEFT H/O hernia repair ABDOMINAL WALL H/O knee surgery LEFT KNEE X 2 H/O tubal ligation H/O: X 2 History of cardiac cath 2017 NO STENTS History of cholecystectomy History of colonoscopy History of surgery (~09/09/20) perm cath replacement History of surgery left arm d/t clot in arm from AV fistula use @ [facility] History of tooth extraction three TOOTH Kidney transplant recipient 2014 AT [facility] S/P arteriovenous (AV) fistula creation right arm Family History Grandmother Hx of CABG Mother Diabetes Father Crohn's disease Grandfather (Maternal) Diabetes Uncle Diabetes Grandmother (Maternal) Family history of reaction to anesthesia difficulty waking with colonoscopy Social History Smoking Status: Current every day smoker Tobacco Type: Cigarettes Cigarettes Per Day: half a pack-she denies; Second Hand Exposure: Yes; Hx Alcohol Use: No Hx Substance Use: No Preferred Language: Maori Communication Ability: Impaired Sales Route Driver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 Beliefs That Will Affect Care: None marital status: Single Current Living Situation: Family Current Living Situation Comment: Lives with fiance and kids How many Children do You have: 3 Feels Safe at Home: Yes Assistive Devices: None Review of Systems Review of Systems: Constitutional: No fever, sweats or chills Eyes: No diplopia, no worsening or blurred vision ENT: normal hearing, no trouble swallowing Respiratory: No cough, sputum, dyspnea at rest or on exertion Cardiovascular: As per HPI, no tightness or palpitations Abdomen: As per HPI Musculoskeletal: No joint pain, calf pain, swelling Neurologic: No weakness, numbness/tingling, or balance problems Psychiatric: No anxiety or depression Skin: No rash or itch Physical Exam Physical Exam: Please refer to attending addendum Results & Data Results & Data ([facility]) Vital Signs (Past 12 Hours) Vital Signs Temp Pulse Resp BP Pulse Ox O2 Del Method 10/31/22 09:22 98 Room Air 10/31/22 09:32 88 10/31/22 09:20 36.4 C L 85 20 196/102 H 98 Room Air Laboratory Results 10/31/22 10/31/22 10/31/22 09:45 09:39 09:39 WBC 5.77 RBC 2.89 L Hgb 9.4 L Hct 28.9 L MCV 100.0 MCH 32.5 MCHC 32.5 RDW Std Deviation 51.7 H RDW Coeff of Laith 14.2 Plt Count 123 L MPV 10.3 Immature Gran % (Auto) 0.2 Neut % (Auto) 77.7 Lymph % (Auto) 13.3 Chambers % (Auto) 4.9 Eos % (Auto) 3.6 Baso % (Auto) 0.3 Neut # (Auto) 4.48 Lymph # (Auto) 0.77 L Chambers # (Auto) 0.28 Eos # (Auto) 0.21 Baso # (Auto) 0.02 Immature Gran # (Auto) 0.01 Sodium 134 L Potassium TNP Chloride 98 Carbon Dioxide 20 L Anion Gap 16 H BUN 75 H Creatinine 14.68 H* Est Cr Clr Drug Dosing 6.3 Est GFR ( Amer) 3.3 Est GFR (Non-Af Amer) 2.8 BUN/Creatinine Ratio 5.1 L Glucose 138 H Calcium 10.1 Magnesium 3.0 H Total Bilirubin 0.5 AST TNP ALT 12 Alkaline Phosphatase 74 Troponin I High Sens 58.3 H* Total Protein 7.3 Albumin 3.8 Globulin 3.5 Albumin/Globulin Ratio 1.1 SARS-CoV-2, RNA, NAAT NEGATIVE Diagnostic Findings Chest X-Ray 10/31/22 09:32 SINGLE VIEW CHEST CLINICAL HISTORY: Atypical chest pain. FINDINGS: An AP, portable, upright chest radiograph is compared to study dated 09/20/2022 and correlated with chest CT dated 03/20/2022. A stent projects over the mediastinum. The heart is enlarged. There is prominence of the pulmonary vasculature. The lungs and pleural spaces are clear. No pneumothorax is seen. The bony thorax is grossly intact. IMPRESSION: Cardiomegaly with prominence of the pulmonary vasculature. Correlate clinically for evidence of mild congestive change. ACT 112: Negative or not required by law. Electronically signed by: North Quintero M.D. 10/31/2022 10:26 AM Supervising Physician Co-Signing Physician Notes Date of Service: October 31, 2022 History and physical exam performed by me. History notable for 36-year-old woman with end-stage renal disease on hemodialysis Saturday,Hypertension who presents to the ER today complaining of chest pain since 5 days ago, vomiting and diarrhea since yesterday. Reported central stabbing, moderate to severe chest pain radiating to the left for the past 5 days, no known exacerbating or relieving factors, not related to activity. Reports that multiple episodes of nonbloody vomiting and watery diarrhea since yesterday. Denied any fevers, cough, melena, hematochezia. Reports chronic exertional dyspnea anorexia. Last dialysis was a week ago. Patient reported that she has not gone because of scheduling which does not give her enough time to rest prior to taking care of her daughter. Patient smokes 1-2 cig per day. Denied alcohol use. Takes marijuana tabs occasionally, last use a few days ago On exam, General: Obese, no acute distress Eyes: PERRL, conjunctivae normal, not pale, anicteric sclerae, EOM intact bilaterally ENMT: External ear and nose normal, oropharynx normal Respiratory: Normal respiratory effort, no respiratory distress, lungs clear to auscultation, no crackles and no wheezes Cardiovascular: RRR S1 S2 Chest (Breasts): Chest: normal inspection of chest. Reproducible tenderness over left anterior chest wall Gastrointestinal (Abdomen): Abdomen is not distended, soft, non-tender to pa lpation, no guarding, no palpable hepatosplenomegaly, normal bowel sounds Musculoskeletal: No pedal edema Neurologic: Alert and oriented x 3, No focal weakness, sensation grossly intact Psychiatric: Alert and oriented x 3, euthymic affect Labs notable for hemoglobin of 9.4 [baseline], platelet of 123, sodium of 134, bicarb of 20, anion gap of 16, creatinine of 14, BUN of 75 magnesium of 3, troponin of 58.3 Chest x-ray noted cardiomegaly with prominent vasculature. Atypical chest pain Vomiting and diarrhea. Patient's chest pain is atypical and reproducible on exam. EKG is normal sinus rhythm. Elevated trop (chronic) likely due to ESRD Likely musculoskeletal. Recheck K Check trop Tele monitor Vomiting and diarrhea suggestive of gastroenteritis. May also be related to missed dialysis. Counseled patient about need to be adherent to her dialysis. Nephrology consult for hemodialysis. Symptomatic management. Send C. difficile if diarrhea recalls. Resume home antihypertensives as patient has not taken medication this morning. Counseled regarding smoking. Other plans as detailed in H&P by Kristine Suarez PA-C I spent a total of 40 minutes coordinating, documenting and providing care for this patient excluding time spent in performance of separately billed services (2) HTN (hypertension) Hypertension type: unspecified Qualified Code(s): I10 - Essential (primary) hypertension
--- NOTE | 2022-10-31 11:43 | Nephrology Consultation ---
Date of Consultation October 31, 2022 Assessment & Plan (1) End-stage renal disease on hemodialysis: Patient with ESRD on dialysis Saturday at [facility] dialysis. Last outpatient dialysis was on Saturday. Chest x-ray today showing pulmonary vascular congestion. -We will dialyze her today for 3-1/2 hours to get UF of 3.5 L (2) HTN (hypertension): Blood pressure is above target. Resume her home on hypertensive (3) Anemia of chronic disease: Hemoglobin of 9 today. Unable to use Epogen due to very high systolic blood pressure History of Present Illness Reason for Consultation: ESRD Requesting Physician: Rosibel Vasquez Attending Physician: Rosibel Vasquez History of Present Illness This is a 36-year-old female with type 2 diabetes, hypertension, depression, anxiety, anemia and ESRD on dialysis Saturday at [facility] who presents today with chest pain and diarrhea since the weekend. Her last outpatient dialysis was on Saturday. Patient went to dialysis unit this Saturday but reportedly left before being hooked up to dialysis due to flare of anxiety. She says she takes Ativan and Benadryl but it did not help her at the. Patient also with multiple social issues. She is taking care of 10-year-old stepdaughter and has no time to rest after dialysis. She prefers first shift but this has not been available at [facility]. Main complaint today is diarrhea. She denies shortness of breath. Chest x-ray showed cardiomegaly and pulmonary vascular congestion. Blood pressure is very high with systolic in the 190s. No leg swelling. She has a right upper arm AV fistula with good bruit. Allergies Allergy/AdvReac Type Severity Reaction Status Date / Time cefaclor Allergy Intermediate Rash Verified 10/31/22 09:57 amoxicillin AdvReac Intermediate VOMITING Verified 10/31/22 09:57 clavulanic acid AdvReac Intermediate VOMITING Verified 10/31/22 09:57 Home Medications Medication Instructions Recorded Confirmed Type carvedilol 3.125 mg tablet 3.125 mg PO BID 12/21/19 10/31/22 History hydroxyzine HCl 25 mg tablet 25 mg PO Q6 PRN Anxiety 04/21/20 10/31/22 History calcium acetate(phosphat bind) 667 2,001 mg PO TIDM 06/22/20 10/31/22 History mg capsule albuterol sulfate 90 mcg/actuation 2 puff inhalation QID PRN 08/01/20 10/31/22 History aerosol inhaler Shortness Of Breath sertraline 100 mg tablet 150 mg PO QAM 08/02/20 10/31/22 History amlodipine 10 mg tablet 10 mg PO HS 08/10/20 10/31/22 History vitamin B complex-vitamin C-folic 1 tab PO QAM 08/10/20 10/31/22 History acid 0.8 mg tablet (Renal Vitamin) cinacalcet 30 mg tablet (Sensipar) 60 mg PO QDD 03/06/21 10/31/22 History lorazepam 0.5 mg tablet 0.5 mg PO Q8 PRN anxiety and 03/06/21 10/31/22 History before dialysis medroxyprogesterone 150 mg/mL 150 mg IM Q90D 03/06/21 10/31/22 History intramuscular suspension (Depo-Provera) gabapentin 400 mg capsule 400 mg PO AMHS 06/27/21 10/31/22 History (Neurontin) dicyclomine 10 mg capsule 10 mg PO QID PRN cyst 01/19/22 10/31/22 History mometasone-formoterol HFA 200 2 puff inhalation BID 01/19/22 10/31/22 History mcg-5 mcg/actuation aerosol inhaler (Dulera) omeprazole 20 mg capsule,delayed 20 mg PO AMHS 01/19/22 10/31/22 History release diclofenac sodium 1 % topical gel 2 g EXT TID #100 grams 01/23/22 10/31/22 Rx (Voltaren Arthritis Pain) albuterol sulfate 2.5 mg/3 mL 2.5 mg inhalation Q4H PRN Wheezing 09/19/22 10/31/22 History (0.083 %) solution for nebulization fluticasone propionate 50 2 spray intranasal DAILY 09/19/22 10/31/22 History mcg/actuation nasal spray,suspension (Flonase Allergy Relief) ondansetron HCl 4 mg tablet 4 mg PO Q6H PRN Nausea 09/19/22 10/31/22 History oxycodone-acetaminophen 5 mg-325 1 tab PO Q8 PRN severe pain 09/19/22 10/31/22 History mg tablet (Percocet) trazodone 100 mg tablet 200 mg PO HS 09/19/22 10/31/22 History Patient History Medical History (Updated 10/01/22 @ 12:59 by Toby Son DO) Anemia due to end stage renal disease Anemia of chronic disease Anxiety Anxiety and depression Asthma "BEEN A WHILE" SINCE USING LAST RESCUE INHALER AVF (arteriovenous fistula) bilt---currently using right for dialysis Bipolar disorder CKD (chronic kidney disease) stage V requiring chronic dialysis Depression Depression with anxiety Dialysis patient SATURDAY/SAT/SATURDAY AT [facility] DM2 (diabetes mellitus, type 2) DM2 (diabetes mellitus, type 2) DVT prophylaxis ESRD (end stage renal disease) on dialysis ESRD (end stage renal disease) on dialysis Fistula right arm (currently being used) and left arm FSGS (focal segmental glomerulosclerosis) DX INITIALLY 2012 (CAUSING ESRD 2012) GERD (gastroesophageal reflux disease) History of abnormal cervical Papanicolaou smear HTN (hypertension) Peripheral neuropathy Prolonged QT interval Restless leg syndrome Status post fall Symptomatic anemia Tobacco abuse Surgical History H/O eye surgery LASER SURGERY LEFT H/O hernia repair ABDOMINAL WALL H/O knee surgery LEFT KNEE X 2 H/O tubal ligation H/O: X 2 History of cardiac cath 2016 NO STENTS History of cholecystectomy History of colonoscopy History of surgery (~09/09/20) perm cath replacement History of surgery left arm d/t clot in arm from AV fistula use @ [facility] History of tooth extraction three TOOTH Kidney transplant recipient 2013 AT [facility] S/P arteriovenous (AV) fistula creation right arm Family History Grandmother Hx of CABG Mother Diabetes Father Crohn's disease Grandfather (Maternal) Diabetes Uncle Diabetes Grandmother (Maternal) Family history of reaction to anesthesia difficulty waking with colonoscopy Social History Smoking Status: Current every day smoker Tobacco Type: Cigarettes Cigarettes Per Day: half a pack-she denies; Second Hand Exposure: Yes; Hx Alcohol Use: No Hx Substance Use: No Preferred Language: Japanese Communication Ability: Impaired Food Mixer Repairer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 Beliefs That Will Affect Care: None marital status: Single Current Living Situation: Family Current Living Situation Comment: Lives with fiance and kids How many Children do You have: 3 Feels Safe at Home: Yes Assistive Devices: None Review of Systems Review of Systems: All other systems were reviewed and negative except as noted in HPI Physical Exam Physical Exam: General exam: Appears comfortable, no acute distress HEENT: Pupils are equal and reactive to light Neck: No JVD, neck is supple trachea is midline Respiratory system: Clear breath sounds bilaterally. Gastrointestinal: Abdomen is soft, non distended, non tender, bowel sounds are present CVS: Regular rate and rhythm. No murmurs, rubs or gallops Musculoskeletal: No joint or muscle tenderness Extremities: Non tender, no edema, peripheral pulses are present Neuro: Oriented, no tremors, no focal neurological deficits Skin: No rashes Results & Data ([facility]) Vital Signs (Past 12 Hours) Vital Signs Temp Pulse Resp BP Pulse Ox O2 Del Method 10/31/22 09:22 98 Room Air 10/31/22 09:32 88 10/31/22 09:20 36.4 C L 85 20 196/102 H 98 Room Air Laboratory Results 10/31/22 09:39 10/31/22 10/31/22 09:39 09:39 WBC 5.77 RBC 2.89 L MCV 100.0 MCH 32.5 MCHC 32.5 RDW Std Deviation 51.7 H RDW Coeff of Laith 14.2 Plt Count 123 L MPV 10.3 Albumin 3.8 (2) HTN (hypertension) Hypertension type: unspecified Qualified Code(s): I10 - Essential (primary) hypertension
[2022-10-31] MEDS ORDERED: SODIUM CHLORIDE 0.9% 1000ML 1,000 ML IV PRN (11:50)
[2022-10-31] MEDS ORDERED: HEPARIN SOD (PORCINE) 1000 UNIT/ML IV ONE (11:50)
--- NOTE | 2022-10-31 12:53 | Communication Note ---
Date of Service: October 31, 2022 History and physical exam performed by me. History notable for 36-year-old woman with end-stage renal disease on hemodialysis Saturday,Hypertension who presents to the ER today complaining of chest pain since 5 days ago, vomiting and diarrhea since yesterday. Reported central stabbing, moderate to severe chest pain radiating to the left for the past 5 days, no known exacerbating or relieving factors, not related to activity. Reports that multiple episodes of nonbloody vomiting and watery diarrhea since yesterday. Denied any fevers, cough, melena, hematochezia. Reports chronic exertional dyspnea anorexia. Last dialysis was a week ago. Patient reported that she has not gone because of scheduling which does not give her enough time to rest prior to taking care of her daughter. On exam, General: Obese, no acute distress Eyes: PERRL, conjunctivae normal, not pale, anicteric sclerae, EOM intact bilaterally ENMT: External ear and nose normal, oropharynx normal Respiratory: Normal respiratory effort, no respiratory distress, lungs clear to auscultation, no crackles and no wheezes Cardiovascular: RRR S1 S2 Chest (Breasts): Chest: normal inspection of chest. Reproducible tenderness over left anterior chest wall Gastrointestinal (Abdomen): Abdomen is not distended, soft, non-tender to palpation, no guarding, no palpable hepatosplenomegaly, normal bowel sounds Musculoskeletal: No pedal edema Neurologic: Alert and oriented x 3, No focal weakness, sensation grossly intact Psychiatric: Alert and oriented x 3, euthymic affect Labs notable for hemoglobin of 9.4 [baseline], platelet of 123, sodium of 134, bicarb of 20, anion gap of 16, creatinine of 14, BUN of 75 magnesium of 3, troponin of 58.3 Chest x-ray noted cardiomegaly with prominent vasculature. Atypical chest pain Vomiting and diarrhea. Patient's chest pain is atypical and reproducible on exam. EKG is normal sinus rhythm. Elevated trop (chronic) likely due to ESRD Likely musculoskeletal. Check trop Tele monitor Vomiting and diarrhea suggestive of gastroenteritis. May also be related to missed dialysis. Counseled patient about need to be adherent to her dialysis. Nephrology consult for hemodialysis. Symptomatic management. Send C. difficile if diarrhea recalls. Resume home antihypertensives as patient has not taken medication this morning. Counseled regarding smoking. Other plans as detailed in H&P by Kristine Suarez PA-C
[2022-10-31] MEDS ORDERED: LORazepam 0.5 MG TAB PO PRN (13:30)
[2022-10-31] MEDS ORDERED: ACETAMINOPHEN 325 MG TAB PO PRN (13:30)
[2022-10-31] MEDS ORDERED: ALBUTEROL 0.083% NEBU SOLN 3 ML VIAL INH PRN (13:30)
[2022-10-31] MEDS ORDERED: hydrOXYzine HCl 25 MG TAB PO PRN (13:30)
[2022-10-31] MEDS ORDERED: ONDANSETRON INJ 2 MG/ML 2 ML VIAL IV PRN (13:30)
[2022-10-31] MEDS ORDERED: ALBUTEROL HFA 8 GM INHALER INH PRN (13:30)
[2022-10-31] MEDS ORDERED: DICYCLOMINE HCL 10 MG CAP PO PRN ×2 (13:30→13:44)
[2022-10-31 13:39] LABS: Potassium 5.3 mmol/L (3.5-5.1)
[2022-10-31] MEDS ORDERED: ONDANSETRON 4 MG OD TAB PO PRN (13:40)
[2022-10-31] MEDS: HEPARIN SOD (PORCINE) 1000 UNIT/ML IV SCH ×2 (13:47→16:35)
[2022-10-31] MEDS: traMADol HCL 50 MG TABLET PO PRN (16:23)
[2022-10-31] MEDS: NEPHROCAPS PO SCH (17:31)
[2022-10-31] MEDS: CINACALCET HCL 30 MG TAB PO SCH (17:32)
[2022-10-31] MEDS: CALCIUM ACETATE 667 MG CAP/TAB PO SCH (17:32)
[2022-10-31 18:05] LABS: Adenovirus F 40/41 PCR Not Detected (NotDetected); Astrovirus PCR Not Detected (NotDetected); Campylobacter PCR Not Detected (NotDetected); Cryptosporidium PCR Not Detected (NotDetected); Cyclospora cayetanensis PCR Not Detected (NotDetected); Entamoeba histolytica PCR Not Detected (NotDetected); Enteroaggregative E.coli(EAEC) Not Detected (NotDetected); Enteropathogenic E.coli (EPEC) Not Detected (NotDetected); Enterotoxigenic E.coli (ETEC) Not Detected (NotDetected); Giardia lamblia PCR Not Detected (NotDetected); Norovirus GI/GII PCR Not Detected (NotDetected); Plesiomonas shigelloides PCR Not Detected (NotDetected); Rotavirus A PCR Not Detected (NotDetected); Salmonella PCR Not Detected (NotDetected); Sapovirus PCR Not Detected (NotDetected); Shiga-like Toxin E.coli (STEC) Not Detected (NotDetected); Shigella/Enteroinvasive E.coli Not Detected (NotDetected); Vibrio cholerae PCR Not Detected (NotDetected); Vibrio species PCR Not Detected (NotDetected); Yersinia enterocolitica PCR Not Detected (NotDetected)
[2022-10-31] MEDS ORDERED: LORATADINE 10 MG TAB PO ONE (19:59)
[2022-10-31] MEDS: carvediloL 3.125 MG TAB PO SCH (20:25)
[2022-10-31] MEDS: traZODone HCL 100 MG TAB PO SCH (20:25)
[2022-10-31] MEDS: amLODIPine BESYLATE 5 MG TAB PO SCH (21:42)
[2022-10-31] MEDS: GABAPENTIN 400 MG CAP PO SCH (21:42)
[2022-10-31] MEDS: PANTOprazole 40 MG TAB PO SCH (21:43)
--- NOTE | 2022-11-01 06:13 | Electrocardiogram Report ---
Test Reason : Blood Pressure : / mmHG Vent. Rate : 091 BPM Atrial Rate : 091 BPM P-R Int : 174 ms QRS Dur : 096 ms QT Int : 390 ms P-R-T Axes : 039 002 038 degrees QTc Int : 479 ms Normal sinus rhythm Cannot rule out Anterior infarct , age undetermined Abnormal ECG When compared with ECG of 21-SEP-2022 05:10, Minimal criteria for Anterior infarct are now Present Confirmed by Reji Gregorio ([id number]) on 11/01/2022 6:13:17 AM Referred By: REFERRED SELF Confirmed By:Reji Gregorio
[2022-11-01] MEDS: traMADol HCL 50 MG TABLET PO PRN ×2 (08:51→21:18)
[2022-11-01] MEDS: PANTOprazole 40 MG TAB PO SCH ×2 (08:51→21:19)
[2022-11-01] MEDS: GABAPENTIN 400 MG CAP PO SCH ×2 (08:52→21:22)
[2022-11-01] MEDS: SERTRALINE HCL 50 MG TABLET PO SCH (08:52)
[2022-11-01] MEDS: carvediloL 3.125 MG TAB PO SCH ×2 (08:52→21:20)
[2022-11-01] MEDS: NEPHROCAPS PO SCH (08:53)
[2022-11-01] MEDS: CALCIUM ACETATE 667 MG CAP/TAB PO SCH ×3 (08:53→16:43)
[2022-11-01] MEDS: FLUTICASONE/VILANTEROL 200/25MCG 14 PUFFS/INHALER INH SCH (08:54)
[2022-11-01] MEDS: FLUTICASONE PROPIONATE NA SPR 16 GM BTL SCH (08:54)
[2022-11-01 09:34] LABS: Hemoglobin 9.8 g/dl (12.0-16.0); Mean Corpuscular Hemoglobin 32.1 pg (25.0-34.0); Mean Corpuscular Hgb Conc 32.7 g/dL (32.0-36.0); Mean Corpuscular Volume 98.4 fL (80.0-100.0); Mean Platelet Volume 10.3 fL (9.4-12.4); Platelet Count 113 K/uL (130-400); RDW Coefficient of Variation 13.8 % (11.5-14.5); RDW Standard Deviation 50.1 fL (36.4-46.3); Red Blood Count 3.05 M/uL (4.20-5.40); White Blood Count 3.55 K/ul (4.8-10.8)
[2022-11-01 10:01] LABS: Calcium 9.7 mg/dl (8.5-10.1); Chol HDL Ratio 4.7 (0-5); Est GFR (African American) 6.1 ml/min; Est GFR (Non-African American) 5.3 ml/min; Magnesium 2.4 mg/dl (1.7-2.4); Potassium 4.2 mmol/L (3.5-5.1)
--- NOTE | 2022-11-01 11:20 | Nephrology Progress Note ---
Date of Service November 01, 2022 Assessment & Plan (1) End-stage renal disease on hemodialysis: Plan: Patient with ESRD on dialysis Saturday at [facility] dialysis. Last outpatient dialysis was on Saturday. Chest x-ray showed pulmonary vascular congestion. She had dialysis yesterday. Electrolytes are stable today no signs of volume overload. She continues to have chest pain. -We will dialyze her tomorrow for 3-1/2 hours to get UF of 3.5 L (2) HTN (hypertension): Plan: Blood pressure is at target. Hold BP meds on the morning of dialysis (3) Anemia of chronic disease: Plan: Hemoglobin of around 9. Will give Epogen with dialysis tomorrow Admission and Anticipated Discharge Date Admission Date: October 31, 2022 Subjective Seen for ESRD. She had dialysis yesterday but left 40 minutes before time. She complains of chest pain. No shortness of breath. Review of Systems Review of Systems: All other systems were reviewed and negative except as noted in HPI Physical Exam Physical Exam: General exam: Appears comfortable, no acute distress HEENT: Pupils are equal and reactive to light Neck: No JVD, neck is supple trachea is midline Respiratory system: Clear breath sounds bilaterally. Gastrointestinal: Abdomen is soft, non distended, non tender, bowel sounds are present CVS: Regular rate and rhythm. No murmurs, rubs or gallops Musculoskeletal: No joint or muscle tenderness Extremities: Non tender, no edema, peripheral pulses are present Neuro: Oriented, no tremors, no focal neurological deficits Skin: No rashes Results & Data ([facility]) Vital Signs (Past 12 Hours) Vital Signs Temp Pulse Pulse Resp BP Pulse Ox O2 Del Method 11/01/22 09:30 Room Air 11/01/22 08:09 36.9 C 79 21 137/80 98 Room Air 11/01/22 07:06 82 11/01/22 02:59 36.7 C 78 18 124/77 97 Room Air 11/01/22 00:30 73 Laboratory Results 11/01/22 08:42 11/01/22 11/01/22 08:42 08:42 WBC 3.55 L RBC 3.05 L MCV 98.4 MCH 32.1 MCHC 32.7 RDW Std Deviation 50.1 H RDW Coeff of Laith 13.8 Plt Count 113 L MPV 10.3 Phosphorus 8.0 H (2) HTN (hypertension) Hypertension type: unspecified Qualified Code(s): I10 - Essential (primary) hypertension
[2022-11-01] MEDS ORDERED: ACETAMINOPHEN 1,000 MG/100 ML VIAL IV ONE (11:36)
[2022-11-01 13:20] LABS: Estimated Average Glucose 103 mg/dl; Hemoglobin A1C 5.2 % (4.5-5.6)
--- NOTE | 2022-11-01 14:44 | Hospitalist Progress Note ---
Date of Service November 01, 2022 Assessment & Plan (1) Chest pain: (2) HTN (hypertension): (3) FSGS (focal segmental glomerulosclerosis): (4) End-stage renal disease on hemodialysis: (5) Anemia of chronic disease: Plan: Atypical chest pain Likely secondary to volume overload Volume overload secondary to noncompliance with hemodialysis --CXR:Cardiomegaly with prominence of the pulmonary vasculature. Correlate clinically for evidence of mild congestive change. -- Chronic troponin elevation in setting of end-stage renal disease --ECHO: Left ventricle is normal size. Left ventricle systolic function is normal. EF 55 to 60%. Right ventricle systolic function is normal. Left atrium is mildly dilated. Right atrial size is normal. Grade 1 diastolic function. --EKG: No ST elevation --Improved with dialysis ESRD Non compliance with Dialysis Appreciate nephrology input Plan for dialysis tomorrow Hypertension Continue carvedilol, amlodipine Hold antihypertensives on morning of dialysis as per nephro Monitor Anemia of chronic disease Hb at baseline No acute bleeding issues Monitor Nausea, vomiting, diarrhea Stool studies negative Positive fecal occult Will need colonoscopy as outpatient DVT Px scds, ambulatory CODE STATUS: Full Code Admission and Anticipated Discharge Date Admission Date: October 31, 2022 Subjective Patient is seen and examined at bedside States having nausea, vomiting overnight Also reports headache this morning Chest pain much improved Had hemodialysis yesterday Plan for next hemodialysis tomorrow Offers no other complaints Review of Systems Review of Systems: All systems reviewed & are unremarkable except as noted in Subjective Physical Exam Physical Exam: Physical Exam: Vitals signs as noted above General Appearance:Obese, no apparent distress Head: normocephalic, Atraumatic Eyes: normal inspection, EOMI Neck: supple, Trachea midline Respiratory/Chest: Normal breath sounds, CTA, No accessory muscle use Cardiovascular: S1, S2, No murmur Abdomen/GI:Soft, Non tender, Bowel sounds present Extremities/Musculoskeletal:normal inspection, no edema Neurologic/Psych:AAOX3, grossly no focal neurological deficits Skin: normal color, warm Results & Data Results & Data ([facility]) Vital Signs (Past 12 Hours) Vital Signs Temp Pulse Pulse Resp BP Pulse Ox O2 Del Method 11/01/22 11:43 36.7 C 80 21 139/85 97 Room Air 11/01/22 09:30 Room Air 11/01/22 08:09 36.9 C 79 21 137/80 98 Room Air 11/01/22 07:06 82 11/01/22 02:59 36.7 C 78 18 124/77 97 Room Air Laboratory Results Short CBC 11/01/22 Range/Units 08:42 WBC 3.55 L (4.8-10.8) K/ul Hgb 9.8 L (12.0-16.0) g/dl Hct 30.0 L (37.0-47.0) % Plt Count 113 L (130-400) K/uL BMP 11/01/22 08:42 Sodium 137 Potassium 4.2 D Chloride 96 L Carbon Dioxide 29 BUN 35 H D Creatinine 8.75 H* D Glucose 106 H Calcium 9.7 (2) HTN (hypertension) Hypertension type: unspecified Qualified Code(s): I10 - Essential (primary) hypertension
[2022-11-01] MEDS: CINACALCET HCL 30 MG TAB PO SCH (16:44)
[2022-11-01] MEDS: amLODIPine BESYLATE 5 MG TAB PO SCH (21:20)
[2022-11-01] MEDS: traZODone HCL 100 MG TAB PO SCH (21:21)
[2022-11-02] MEDS ORDERED: SODIUM CHLORIDE 0.9% 1000ML 1,000 ML IV PRN (07:00)
[2022-11-02] MEDS ORDERED: HEPARIN SOD (PORCINE) 1000 UNIT/ML IV ONE (07:00)
[2022-11-02] MEDS: traMADol HCL 50 MG TABLET PO PRN (08:32)
[2022-11-02] MEDS: GABAPENTIN 400 MG CAP PO SCH (08:32)
[2022-11-02] MEDS: PANTOprazole 40 MG TAB PO SCH (08:32)
[2022-11-02] MEDS: CALCIUM ACETATE 667 MG CAP/TAB PO SCH ×2 (08:33→12:39)
[2022-11-02] MEDS: NEPHROCAPS PO SCH (08:33)
[2022-11-02] MEDS: SERTRALINE HCL 50 MG TABLET PO SCH (08:34)
[2022-11-02] MEDS: FLUTICASONE PROPIONATE NA SPR 16 GM BTL SCH (08:35)
[2022-11-02] MEDS: carvediloL 3.125 MG TAB PO SCH (08:35)
[2022-11-02] MEDS: FLUTICASONE/VILANTEROL 200/25MCG 14 PUFFS/INHALER INH SCH (08:36)
[2022-11-02 08:58] LABS: Hematocrit (blood only) 27.6 % (37.0-47.0); Hemoglobin 9.1 g/dl (12.0-16.0); Mean Corpuscular Hemoglobin 32.2 pg (25.0-34.0); Mean Corpuscular Volume 97.5 fL (80.0-100.0); Platelet Count 109 K/uL (130-400); RDW Coefficient of Variation 13.4 % (11.5-14.5); Red Blood Count 2.83 M/uL (4.20-5.40); White Blood Count 4.04 K/ul (4.8-10.8)
[2022-11-02 09:22] LABS: Calcium 8.7 mg/dl (8.5-10.1); Magnesium 2.4 mg/dl (1.7-2.4); Potassium 4.3 mmol/L (3.5-5.1)
[2022-11-02 09:51] LABS: BUN Creatinine Ratio 4.1 (10-20); Est GFR (African American) 4.7 ml/min; Phosphorus 7.8 mg/dl (2.5-4.9)
[2022-11-02] MEDS: HEPARIN SOD (PORCINE) 1000 UNIT/ML IV SCH ×2 (10:36→11:21)
[2022-11-02] MEDS ORDERED: EPOETIN ALFA 10,000 UNITS in SYRINGE 0 ML IV SCH (11:15)
[2022-11-02] MEDS ORDERED: EPOETIN ALFA 10,000 UNITS/ML VIAL IV ONE (11:15)
--- NOTE | 2022-11-02 11:52 | Nephrology Progress Note ---
Date of Service November 02, 2022 Assessment & Plan (1) End-stage renal disease on hemodialysis: Plan: Patient with ESRD on dialysis Saturday at [facility] dialysis. Last outpatient dialysis was on Saturday. Chest x-ray showed pulmonary vascular congestion. Electrolytes are stable today no signs of volume overload. She continues to have intermittent chest pain. -Patient is tolerating dialysis well today. She is planned for for 3-1/2 hours to get UF of 3.5 L (2) HTN (hypertension): Plan: Blood pressure is at target. Hold BP meds on the morning of dialysis (3) Anemia of chronic disease: Plan: Hemoglobin of around 9. Will give Epogen 10,000 units with dialysis Admission and Anticipated Discharge Date Admission Date: October 31, 2022 Subjective Seen in follow-up for ESRD. She feels better today. No shortness of breath. Patient was seen and examined while on dialysis. Review of Systems Review of Systems: All other systems were reviewed and negative except as noted in HPI Physical Exam Physical Exam: General exam: Appears comfortable, no acute distress HEENT: Pupils are equal and reactive to light Neck: No JVD, neck is supple trachea is midline Respiratory system: Clear breath sounds bilaterally. Gastrointestinal: Abdomen is soft, non distended, non tender, bowel sounds are present CVS: Regular rate and rhythm. No murmurs, rubs or gallops Musculoskeletal: No joint or muscle tenderness Extremities: Non tender, no edema, peripheral pulses are present Neuro: Oriented, no tremors, no focal neurological deficits Skin: No rashes Results & Data ([facility]) Vital Signs (Past 12 Hours) Vital Signs Temp Pulse Pulse Pulse Resp BP BP 11/02/22 11:30 98 H 103/63 11/02/22 11:00 81 141/70 H 11/02/22 10:30 83 115/68 11/02/22 10:00 81 140/75 11/02/22 08:00 11/02/22 09:30 80 150/93 H 11/02/22 09:00 77 121/77 11/02/22 08:50 81 156/88 H 11/02/22 08:40 36.5 C 76 11/02/22 07:35 36.9 C 81 18 132/88 11/02/22 07:00 80 11/02/22 03:00 36.5 C 79 18 136/84 Pulse Ox O2 Del Method 11/02/22 11:30 11/02/22 11:00 11/02/22 10:30 11/02/22 10:00 11/02/22 08:00 Room Air 11/02/22 09:30 11/02/22 09:00 11/02/22 08:50 11/02/22 08:40 11/02/22 07:35 97 Room Air 11/02/22 07:00 11/02/22 03:00 95 Room Air Laboratory Results 11/02/22 08:46 11/02/22 11/02/22 08:46 08:46 WBC 4.04 L RBC 2.83 L MCV 97.5 MCH 32.2 MCHC 33.0 RDW Std Deviation 48.0 H RDW Coeff of Laith 13.4 Plt Count 109 L MPV 10.0 Phosphorus 7.8 H (2) HTN (hypertension) Hypertension type: unspecified Qualified Code(s): I10 - Essential (primary) hypertension
--- NOTE | 2022-11-02 12:17 | Hospitalist Progress Note ---
Date of Service November 02, 2022 Assessment & Plan (1) Chest pain: (2) HTN (hypertension): (3) FSGS (focal segmental glomerulosclerosis): (4) End-stage renal disease on hemodialysis: (5) Anemia of chronic disease: Plan: Atypical chest pain Likely secondary to volume overload Volume overload secondary to noncompliance with hemodialysis --CXR:Cardiomegaly with prominence of the pulmonary vasculature. Correlate clinically for evidence of mild congestive change. -- Chronic troponin elevation in setting of end-stage renal disease --ECHO: Left ventricle is normal size. Left ventricle systolic function is normal. EF 55 to 60%. Right ventricle systolic function is normal. Left atrium is mildly dilated. Right atrial size is normal. Grade 1 diastolic function. --EKG: No ST elevation --Improved with dialysis Had HD today ESRD Non compliance with Dialysis Appreciate nephrology input Continue dialysis per Nephrology Discussed with Nephrology today: OK to discharge home Hypertension Continue carvedilol, amlodipine Monitor Anemia of chronic disease Hb at baseline No acute bleeding issues Monitor Nausea, vomiting, diarrhea--Resolved ? Due to Uremia Vs Gastroenteritis Stool studies negative Positive fecal occult Will need colonoscopy as outpatient DVT Px scds, ambulatory CODE STATUS: Full Code Disposition Home Admission and Anticipated Discharge Date Admission Date: October 31, 2022 Subjective Patient is seen and examined at bedside while getting HD this morning States feeling well today Headache resolved Offers no new complaints Discussed with Nephrology today Review of Systems Review of Systems: All systems reviewed & are unremarkable except as noted in Subjective Physical Exam Physical Exam: Physical Exam: Vitals signs as noted above General Appearance:Obese, no apparent distress Head: normocephalic, Atraumatic Eyes: normal inspection, EOMI Neck: supple, Trachea midline Respiratory/Chest: Normal breath sounds, CTA, No accessory muscle use Cardiovascular: S1, S2, No murmur Abdomen/GI:Soft, Non tender, Bowel sounds present Extremities/Musculoskeletal:normal inspection, no edema Neurologic/Psych:AAOX3, grossly no focal neurological deficits Skin: normal color, warm Results & Data Results & Data ([facility]) Vital Signs (Past 12 Hours) Vital Signs Temp Pulse Pulse Pulse Resp BP BP 11/02/22 11:54 36.5 C 78 109/64 11/02/22 11:30 98 H 103/63 11/02/22 11:00 81 141/70 H 11/02/22 10:30 83 115/68 11/02/22 10:00 81 140/75 11/02/22 08:00 11/02/22 09:30 80 150/93 H 11/02/22 09:00 77 121/77 11/02/22 08:50 81 156/88 H 11/02/22 08:40 36.5 C 76 11/02/22 07:35 36.9 C 81 18 11/02/22 07:00 80 11/02/22 03:00 36.5 C 79 18 BP Pulse Ox O2 Del Method 11/02/22 11:54 11/02/22 11:30 11/02/22 11:00 11/02/22 10:30 11/02/22 10:00 11/02/22 08:00 Room Air 11/02/22 09:30 11/02/22 09:00 11/02/22 08:50 11/02/22 08:40 11/02/22 07:35 132/88 97 Room Air 11/02/22 07:00 11/02/22 03:00 136/84 95 Room Air Laboratory Results Short CBC 11/02/22 Range/Units 08:46 WBC 4.04 L (4.8-10.8) K/ul Hgb 9.1 L (12.0-16.0) g/dl Hct 27.6 L (37.0-47.0) % Plt Count 109 L (130-400) K/uL BMP 11/02/22 08:46 Sodium 134 L Potassium 4.3 Chloride 95 L Carbon Dioxide 27 BUN 45 H Creatinine 10.88 H* D Glucose 174 H Calcium 8.7 (2) HTN (hypertension) Hypertension type: unspecified Qualified Code(s): I10 - Essential (primary) hypertension
--- NOTE | 2022-11-02 13:36 | Discharge Summary ---
Date of Service November 02, 2022 Admission HPI Per Admitting Provider This is a 36 yo F with PMHx significant for hypertension, ESRD on HD history of FSGS status post failed renal transplantation x2, [id number] diabetes mellitus type 2, anxiety and depression, anemia of chronic disease (baseline hemoglobin 8-9), osteoarthritis. Patient unfortunately has had multiple emergency room visits and hospitalizations since 2018. Today she presents to the hospital with acute onset of chest pain, sharp and stabbing in nature, and thinks it started over the weekend, at least 5 days ago, it moves to the left side of her chest, but notes it is a chronic pain, which does not worsen with exertional activity. Last night trialed Tylenol for pain but it did not alleviate it. She notes nausea and vomiting started last night and happened over 15 times. She does have some coughing prior to when she has nausea. She reports its brown watery diarrhea, denies melena, bright red blood or dark tarry sticky BMs. She has had a poor appetite overall, but at baseline only eats one meal per day. If she eats more than that then she gets nauseated and throws up. Pt denies any fever. Her dialysis scheduled is MWF at 9:45-1pm Pt notes her last session was Saturday, where she got a 1/2 session. She typically uses the [email or web address] system and on Wednesdays she doesn't get home until right before her step-daughter gets home from school. She finds this stressful because she doesn't have time to prepare to be in "motherhood mode". Pt chose to not go to her session on Saturday because she didn't feel like it. Her fiance and mother in law lives in the home with her. Admission Exam Per Admitting Provider On exam, General: Obese, no acute distress Eyes: PERRL, conjunctivae normal, not pale, anicteric sclerae, EOM intact bilaterally ENMT: External ear and nose normal, oropharynx normal Respiratory: Normal respiratory effort, no respiratory distress, lungs clear to auscultation, no crackles and no wheezes Cardiovascular: RRR S1 S2 Chest (Breasts): Chest: normal inspection of chest. Reproducible tenderness over left anterior chest wall Gastrointestinal (Abdomen): Abdomen is not distended, soft, non-tender to palpation, no guarding, no palpable hepatosplenomegaly, normal bowel sounds Musculoskeletal: No pedal edema Neurologic: Alert and oriented x 3, No focal weakness, sensation grossly intact Psychiatric: Alert and oriented x 3, euthymic affect Principal Diagnosis Atypical chest pain End-stage renal disease Discharge Data Allergies Allergy/AdvReac Type Severity Reaction Status Date / Time cefaclor Allergy Intermediate Rash Verified 10/31/22 09:57 amoxicillin AdvReac Intermediate VOMITING Verified 10/31/22 09:57 clavulanic acid AdvReac Intermediate VOMITING Verified 10/31/22 09:57 Consultations 10/31/22 11:08 Consult Nephrology Stat 10/31/22 11:14 ED Decision to Admit Stat Procedures Performed Laboratory Results WBC 4.04 K/ul (4.8-10.8) L 11/02/22 08:46 RBC 2.83 M/uL (4.20-5.40) L 11/02/22 08:46 Hgb 9.1 g/dl (12.0-16.0) L 11/02/22 08:46 Hct 27.6 % (37.0-47.0) L 11/02/22 08:46 MCV 97.5 fL (80.0-100.0) 11/02/22 08:46 MCH 32.2 pg (25.0-34.0) 11/02/22 08:46 MCHC 33.0 g/dL (32.0-36.0) 11/02/22 08:46 RDW Std Deviation 48.0 fL (36.4-46.3) H 11/02/22 08:46 RDW Coeff of Laith 13.4 % (11.5-14.5) 11/02/22 08:46 Plt Count 109 K/uL (130-400) L 11/02/22 08:46 MPV 10.0 fL (9.4-12.4) 11/02/22 08:46 Immature Gran % (Auto) 0.2 % 10/31/22 09:39 Neut % (Auto) 77.7 % 10/31/22 09:39 Lymph % (Auto) 13.3 % 10/31/22 09:39 [place] % (Auto) 4.9 % 10/31/22 09:39 Eos % (Auto) 3.6 % 10/31/22 09:39 Baso % (Auto) 0.3 % 10/31/22 09:39 Neut # (Auto) 4.48 K/uL (1.40-6.50) 10/31/22 09:39 Lymph # (Auto) 0.77 K/uL (1.2-3.4) L 10/31/22 09:39 [place] # (Auto) 0.28 K/uL (0.11-0.59) 10/31/22 09:39 Eos # (Auto) 0.21 K/uL (0-0.50) 10/31/22 09:39 Baso # (Auto) 0.02 K/uL (0-0.2) 10/31/22 09:39 Immature Gran # (Auto) 0.01 K/uL (0.01-0.20) 10/31/22 09:39 Sodium 134 mmol/L (136-145) L 11/02/22 08:46 Potassium 4.3 mmol/L (3.5-5.1) 11/02/22 08:46 Chloride 95 mmol/L (98-107) L 11/02/22 08:46 Carbon Dioxide 27 mmol/L (21-32) 11/02/22 08:46 Anion Gap 12 (3-11) H 11/02/22 08:46 BUN 45 mg/dl (6-23) H 11/02/22 08:46 Creatinine 10.88 mg/dl (0.6-1.2) H* D 11/02/22 08:46 Est Cr Clr Drug Dosing 8.0 ml/min 11/02/22 08:46 Est GFR ( Amer) 4.7 ml/min 11/02/22 08:46 Est GFR (Non-Af Amer) 4.0 ml/min 11/02/22 08:46 BUN/Creatinine Ratio 4.1 (10-20) L 11/02/22 08:46 Glucose 174 mg/dl (70-99(Fasting)) H 11/02/22 08:46 POC Glucose 129 mg/dl (70-99) H 11/02/22 07:35 Estimat Average Glucose 103 mg/dl 11/01/22 08:42 Hemoglobin A1c 5.2 % (4.5-5.6) 11/01/22 08:42 Calcium 8.7 mg/dl (8.5-10.1) 11/02/22 08:46 Phosphorus 7.8 mg/dl (2.5-4.9) H 11/02/22 08:46 Magnesium 2.4 mg/dl (1.7-2.4) 11/02/22 08:46 Total Bilirubin 0.5 mg/dl (0.2-1.0) 10/31/22 09:39 AST 13 U/L (13-39) 10/31/22 13:05 ALT 12 U/L (7-52) 10/31/22 09:39 Alkaline Phosphatase 74 U/L (34-104) 10/31/22 09:39 Troponin I High Sens 61.7 pg/ml (0-14) H* 10/31/22 17:40 Total Protein 7.3 gm/dl (6.0-8.3) 10/31/22 09:39 Albumin 3.8 gm/dl (3.4-5.0) 10/31/22 09:39 Globulin 3.5 gm/dl (2.5-4.0) 10/31/22 09:39 Albumin/Globulin Ratio 1.1 (0.9-2) 10/31/22 09:39 Triglycerides 96 mg/dl (0-150) 11/01/22 08:42 Cholesterol 160 mg/dl (0-200) 11/01/22 08:42 LDL Cholesterol, Calc 107 mg/dl 11/01/22 08:42 VLDL Cholesterol, Calc 19 mg/dl (0-30) 11/01/22 08:42 HDL Cholesterol 34 mg/dl 11/01/22 08:42 Cholesterol/HDL Ratio 4.7 (0-5) 11/01/22 08:42 Stool Occult Bld Scrn Positive (Negative) A 10/31/22 Unknown Stl C. cayetanensis PCR Not Detected (NotDetected) 10/31/22 Unknown Stool Rotavirus A PCR Not Detected (NotDetected) 10/31/22 Unknown Stl Adenov F 40/41 PCR Not Detected (NotDetected) 10/31/22 Unknown Stool Astrovirus (PCR) Not Detected (NotDetected) 10/31/22 Unknown Stool Campylobacter PCR Not Detected (NotDetected) 10/31/22 Unknown Stl C. diff Tox B Gene Negative Cdiff Gene (Neg) 10/31/22 Unknown Stool Cryptosporidium PCR Not Detected (NotDetected) 10/31/22 Unknown Stl E.coli Shiga Tox PCR Not Detected (NotDetected) 10/31/22 Unknown Stl Enterotoxigenic E PCR Not Detected (NotDetected) 10/31/22 Unknown Stool EPEC (PCR) Not Detected (NotDetected) 10/31/22 Unknown Stool EAEC (PCR) Not Detected (NotDetected) 10/31/22 Unknown Stl E. histolytica PCR Not Detected (NotDetected) 10/31/22 Unknown Stool Giardia Lamblia PCR Not Detected (NotDetected) 10/31/22 Unknown Stool Salmonella PCR Not Detected (NotDetected) 10/31/22 Unknown Stool Sapovirus (PCR) Not Detected (NotDetected) 10/31/22 Unknown Stl P. shigelloides PCR Not Detected (NotDetected) 10/31/22 Unknown Stl Shigella/EIEC PCR Not Detected (NotDetected) 10/31/[address]enterocolitica PCR Not Detected (NotDetected) 10/31/22 Unknown Stool Vibrio (PCR) Not Detected (NotDetected) 10/31/22 Unknown Stl Vibrio cholerae PCR Not Detected (NotDetected) 10/31/22 Unknown Stl Norovirus GI/GII PCR Not Detected (NotDetected) 10/31/22 Unknown SARS-CoV-2, RNA, NAAT NEGATIVE (NEGATIVE) 10/31/22 09:45 Impressions Chest X-Ray 10/31/22 09:32 SINGLE VIEW CHEST CLINICAL HISTORY: Atypical chest pain. FINDINGS: An AP, portable, upright chest radiograph is compared to study dated 09/20/2022 and correlated with chest CT dated 03/20/2022. A stent projects over the mediastinum. The heart is enlarged. There is prominence of the pulmonary vasculature. The lungs and pleural spaces are clear. No pneumothorax is seen. The bony thorax is grossly intact. IMPRESSION: Cardiomegaly with prominence of the pulmonary vasculature. Correlate clinically for evidence of mild congestive change. ACT 112: Negative or not required by law. Electronically signed by: North Quintero M.D. 10/31/2022 10:26 AM Hospital Course (1) Chest pain: (2) HTN (hypertension): (3) FSGS (focal segmental glomerulosclerosis): (4) End-stage renal disease on hemodialysis: (5) Anemia of chronic disease: Atypical chest pain Likely secondary to volume overload Volume overload secondary to noncompliance with hemodialysis --CXR:Cardiomegaly with prominence of the pulmonary vasculature. Correlate clinically for evidence of mild congestive change. -- Chronic troponin elevation in setting of end-stage renal disease --ECHO: Left ventricle is normal size. Left ventricle systolic function is normal. EF 55 to 60%. Right ventricle systolic function is normal. Left atrium is mildly dilated. Right atrial size is normal. Grade 1 diastolic function. --EKG: No ST elevation --Improved with dialysis Had HD today ESRD Non compliance with Dialysis Appreciate nephrology input Continue dialysis per Nephrology Discussed with Nephrology today: OK to discharge home Hypertension Continue carvedilol, amlodipine Monitor Anemia of chronic disease Hb at baseline No acute bleeding issues Monitor Nausea, vomiting, diarrhea--Resolved ? Due to Uremia Vs Gastroenteritis Stool studies negative Positive fecal occult Will need colonoscopy as outpatient DVT Px scds, ambulatory CODE STATUS: Full Code Disposition Home Total Time Total Time Spent Total Time Spent (In Minutes): 55 minutes Discharge Plan Discharge Items Patient Disposition: Home - Self-Care Reason For Visit: CHEST PAIN Discharge Diagnosis: Atypical chest pain End-stage renal disease Condition on Discharge: Fair Activity: Per Instructions section Exercise/Sports: Gradually increase as tolerated Non-emergency contact: Primary Care Provider and Radiology Transporter Call non-emergency contact if: you have any medication questions, your symptoms worsen, your pain is concerning for you and you have a fever Follow-up/Referrals: Adolph Aldridge MD [Primary Care Provider] - (Date & Time 11/08/2022 10:20 AM Provider Adolph Aldridge MD Department [facility] ) Diet: Dialysis Renal and Heart Healthy Addtl Attending Provider Instructions: Follow-up with your primary care physician Dr. Aldridge on 11/08/2022 10:20 AM Follow-up with your regional guide for dialysis. --- Obtain colonoscopy as outpatient to rule out any causes for bleeding/anemia. Seek immediate medical attention if your symptoms reoccur or worsen Please take all medications as instructed on discharge list below. Please call if you have any questions or problems. You can reach a [facility] hospitalist on duty at [facility] 24 hours a day by calling [phone] Pending Studies at Discharge: No Stand-Alone Forms: My [facility] Health, Smoking Cessation Medications and DC Order Prescriptions: Continued calcium acetate(phosphat bind) 667 mg capsule 2,001 mg PO TIDM Rx Instructions: 3 tabs with meals sertraline 100 mg tablet 150 mg PO QAM Rx Instructions: 1 & 1/2 TABLET DOSE carvedilol 3.125 mg tablet 3.125 mg PO BID hydroxyzine HCl 25 mg tablet 25 mg PO Q6 PRN (Reason: Anxiety) albuterol sulfate 90 mcg/actuation HFA aerosol inhaler 2 puff INHALATION QID PRN (Reason: Shortness Of Breath) amlodipine 10 mg Tablet 10 mg PO HS Renal Vitamin 0.8 mg Tablet 1 tab PO QAM lorazepam 0.5 mg tablet 0.5 mg PO Q8 PRN (Reason: anxiety and before dialysis) medroxyprogesterone [Depo-Provera] 150 mg/mL suspension 150 mg IM Q90D cinacalcet [Sensipar] 30 mg Tablet 60 mg PO QDD Rx Instructions: Takes with evening meal gabapentin [Neurontin] 400 mg capsule 400 mg PO AMHS albuterol sulfate 2.5 mg /3 mL (0.083 %) Solution For Nebulization 2.5 mg INHALATION Q4H PRN (Reason: Wheezing) ondansetron HCl 4 mg Tablet 4 mg PO Q6H PRN (Reason: Nausea) trazodone 100 mg tablet 200 mg PO HS fluticasone propionate [Flonase Allergy Relief] 50 mcg/actuation [place] [employer] 2 spray INTRANASAL DAILY Rx Instructions: administer into each nostril dicyclomine 10 mg capsule 10 mg PO QID PRN (Reason: cyst) omeprazole 20 mg capsule,delayed release(DR/EC) 20 mg PO AMHS Dulera 200-5 mcg/actuation HFA aerosol inhaler 2 puff INHALATION BID Discharge Orders: Discharge Order (Routine); Ordered 11/02/22 Ordered By: Anthony Zendejas Admission Data Admit Date/Time: 10/31/22 11:28 Attending Provider: Anthony Zendejas Admit Provider: Kristine Suarez Primary Care Provider: Adolph Aldridge Other Providers: Pato Saucedo ; Lindsay Garcia I.
== END 2022-11-02 14:48 | disposition home or self-care (01) | DRG 682 ==
LOC: ED 09:12 → EDINP 11:28 → SUATTDRO 11:28 → EDINP 13:29 → 2W 14:23

== ENCOUNTER 2022-11-12 18:19 | Inpatient (IN) ==
--- NOTE | 2022-11-12 18:41 | ED Triage Note ---
Date of Service November 12, 2022 History of Present Illness This patient was briefly evaluated while in triage. An abbreviated physical exam was performed. This patient is a 36-year-old Female with a history of end stage renal disease on dialysis who presents to the ED for evaluation of facial injury secondary to feeling dizzy. She was supposed to go to dialysis today but overslept and missed it. She was seen in this ED on 11/10 and 11/11. Physical Exam CONSTITUTIONAL: uncomfortable appearing, sitting upright in chair. FACE: nasal bone tenderness, dried blood on nose. bilateral orbital tenderness. no obvious proptosis SKIN: pink, warm, dry. abrasions to bilateral knees CARDIAC: regular rate and rhythm RESPIRATORY: in no respiratory distress, lungs clear to auscultation MSK: no focal tenderness especially in b/l knees NEURO: no focal deficits Initial orders for labs and / or imaging were placed and patient was placed in the waiting area until a bed is available. Please see further documentation for the full ED course.
[2022-11-12 20:07] LABS: Basophils # (auto) 0.02 K/uL (0-0.2); Basophils % (auto) 0.4 %; Eosinophils # (auto) 0.18 K/uL (0-0.50); Eosinophils % (auto) 3.2 %; Hematocrit (blood only) 29.1 % (37.0-47.0); Hemoglobin 9.1 g/dl (12.0-16.0); Immature Granulocytes # (auto) 0.02 K/uL (0.01-0.20); Immature Granulocytes % (auto) 0.4 %; Lymphocytes # (auto) 0.96 K/uL (1.2-3.4); Lymphocytes % (auto) 16.9 %; Mean Corpuscular Hemoglobin 31.9 pg (25.0-34.0); Mean Corpuscular Hgb Conc 31.3 g/dL (32.0-36.0); Mean Corpuscular Volume 102.1 fL (80.0-100.0); Mean Platelet Volume 10.5 fL (9.4-12.4); Monocytes # (auto) 0.32 K/uL (0.11-0.59); Monocytes % (auto) 5.6 %; Neutrophils # (auto) 4.17 K/uL (1.40-6.50); Neutrophils % (auto) 73.5 %; Platelet Count 105 K/uL (130-400); RDW Coefficient of Variation 15.3 % (11.5-14.5); RDW Standard Deviation 55.9 fL (36.4-46.3); Red Blood Count 2.85 M/uL (4.20-5.40); White Blood Count 5.67 K/ul (4.8-10.8)
--- NOTE | 2022-11-12 20:07 | CT Scan Report ---
Exam(s): CT HEAD Without Contrast EXAM: CT Head Without Intravenous Contrast CLINICAL HISTORY: Reason for exam: Dizzy, fall, facial trauma. TECHNIQUE: Axial computed tomography images of the head/brain without intravenous contrast. CTDI is 37 mGy and DLP is 537.48 mGy-cm. Automated exposure control was utilized for the study. A dose lowering technique was utilized adhering to the principles of ALARA. COMPARISON: No relevant prior studies available. FINDINGS: No acute intracranial hemorrhage. No midline shift or mass effect. The territorial valadez-white matter differentiation is maintained throughout. The ventricles and sulci are commensurate with age. The visualized orbits appear grossly unremarkable. The calvarium is intact. The visualized paranasal sinuses and mastoid air cells are grossly clear. IMPRESSION: No acute intracranial hemorrhage, midline shift, or mass effect. Electronically signed by: Nando Rodrigez MD 11/12/22 20:06 PM
--- NOTE | 2022-11-12 20:09 | CT Scan Report ---
Exam(s): CT C SPINE EXAM: CT Cervical Spine Without Intravenous Contrast CLINICAL HISTORY: Reason for exam: Dizziness, fall, facial trauma. TECHNIQUE: Axial computed tomography images of the cervical spine without intravenous contrast. CTDI is 15.01 mGy and DLP is 495.97 mGy-cm. Automated exposure control was utilized for the study. A dose lowering technique was utilized adhering to the principles of ALARA. COMPARISON: No relevant prior studies available. FINDINGS: The vertebral body heights are maintained. There is no spondylolisthesis. The craniocervical junction is intact. The atlanto-dens interval is maintained. The dens is intact. The intervertebral disc spaces are preserved. There is no spinal canal or neural foraminal stenosis. Small bilateral pleural effusions. IMPRESSION: No acute fracture or subluxation of the cervical spine. Electronically signed by: Nando Rodrigez MD 11/12/22 20:08 PM
[2022-11-12] MEDS ORDERED: MoRPHine SULFATE 4 MG/ML 1 ML CARP\\VIAL IV STA (20:12)
--- NOTE | 2022-11-12 20:22 | Emergency Department Note ---
Impression & Plan SOB (shortness of breath), Fluid overload, Medical non-compliance, Facial fracture, Abrasion of knee, Fall ED Provider Note NAME: NATHALIA DUTTON AGE: 36 SEX: F : 1985 ARRIVES VIA: Walk-In INFORMANT: [Patient] ED PROVIDER(S): [[place] MD] CHIEF COMPLAINT: Dizziness, fall, short of breath HISTORY OF PRESENT ILLNESS: The patient is a 36-year-old female who states that today, at around 3:30 PM, 4.5 hours ago, she became dizzy and tripped on the sidewalk and fell. She struck her face and both knees. No loss of consciousness. She admits to some shortness of breath and facial and arm swelling. She has missed dialysis for the last week. She has not had fever. No abdominal pain. Her last tetanus was within just 1 year. The patient currently complains of facial pain that is moderate in severity. She has a headache. Her knees feel scraped more than anything. She has no chest pain. No neck pain. PMHx/PSHx: See Below SOCIAL HISTORY: See Below. PHYSICAL EXAM: GENERAL: Patient is in no acute distress. HEENT: Patient has contusions to both the upper and lower lips. No lacerations requiring repair. There is an abrasion to the external portion of the mid upper lip. No obvious dental trauma seen. The nose is tender to palpation but there is no obvious deformity. There is edema of the face in general NECK: No stridor, no adenopathy, nontender cervical spine, trachea is midline. LUNGS: Clear to auscultation bilaterally, no wheeze, no rhonchi, breath sounds equal. HEART: Without murmurs gallops or rubs, regular rate and rhythm. ABDOMEN: Soft, nontender, bowel sounds positive, no peritonitis. EXTREMITIES: No cyanosis or edema, full range of motion of all the joints without pain or difficulty. There are abrasions to both anterior knees. No evidence for bony injury to either knee. She can walk without difficulty. There is edema to both upper extremities noted, no lower extremity edema. NEUROLOGIC: Oriented x 3, no acute motor or sensory deficits, no focal weakness. SKIN: No rash, no jaundice, no diaphoresis. DIFFERENTIAL DIAGNOSIS: Fluid overload, facial fracture, intracranial bleeding, skull fracture, C-spine fracture, electrolyte abnormality, anemia, among others. EMERGENCY DEPARTMENT COURSE/PROCEDURES: Prior/Outside records reviewed: Previous discharge summaries. ECG per my interpretation: Indication was dizziness and fall. The ECG shows a normal sinus rhythm with a rate of 81. There is some baseline artifact. No ST elevation, no PVCs. There is a potential old lateral infarct. QTc is 478 Continuous Cardiac Monitoring per my interpretation: An order was placed for continuous cardiac monitoring. The monitor shows a rate of 83 with normal sinus rhythm. Critical Care Note: I have personally spent 45 minutes of critical care time in the direct management of this patient. This includes bedside care, interpretation of diagnostic studies, and testing, discussion with consultants, patient, and family members, and other required patient management activities. This 45 minutes is in excess of all separately billable procedures. MEDICAL DECISION MAKING: There is no leukocytosis. The patient is anemic however, she carries a history of anemia. Platelet count was somewhat low at 105. There was a high creatinine consistent with her dialysis need. Potassium was reasonable at 5.2. CO2 was low at 17. There was an anion gap of 21. No worrisome liver enzyme elevation. The patient appeared to be in a euthyroid state. ECG showed a normal sinus rhythm, no obvious ischemia. Cardiac enzyme testing x1 was slightly elevated, she carries a history of a mild troponin elevation. ECG shows some fluid overload/CHF. Brain CT showed no acute bleed or mass effect. C-spine CT showed no acute fracture. Facial CT showed a maxillary spine fracture. On exam, there were no lacerations requiring repair. There were some bilateral knee abrasions. Patient was noted to be hypertensive. I suspect this is from missing dialysis. She was given IV labetalol, 10 mg. She was given IV morphine for facial pain. Patient's blood pressure is better controlled, she seems more comfortable. Given the fluid overload, given the missed dialysis, given her hypertension and edema, I do think a hospital stay is warranted. I did speak with case management, the on-call hospitalist was consulted. The patient is aware of all her findings. DISPOSITION: Given the patient's presentation and findings, a hospital stay is warranted. Past Med/Surg History Medical History Anemia due to end stage renal disease Anemia of chronic disease Anxiety Anxiety and depression Asthma "BEEN A WHILE" SINCE USING LAST RESCUE INHALER AVF (arteriovenous fistula) bilt---currently using right for dialysis Bipolar disorder CKD (chronic kidney disease) stage V requiring chronic dialysis Depression Depression with anxiety Dialysis patient SATURDAY/SAT/SATURDAY AT [facility] DM2 (diabetes mellitus, type 2) DM2 (diabetes mellitus, type 2) DVT prophylaxis ESRD (end stage renal disease) on dialysis ESRD (end stage renal disease) on dialysis Fistula right arm (currently being used) and left arm FSGS (focal segmental glomerulosclerosis) DX INITIALLY 2012 (CAUSING ESRD 2012) GERD (gastroesophageal reflux disease) History of abnormal cervical Papanicolaou smear HTN (hypertension) Peripheral neuropathy Prolonged QT interval Restless leg syndrome Status post fall Symptomatic anemia Tobacco abuse Surgical History H/O eye surgery LASER SURGERY LEFT H/O hernia repair ABDOMINAL WALL H/O knee surgery LEFT KNEE X 2 H/O tubal ligation H/O: X 2 History of cardiac cath 2016 NO STENTS History of cholecystectomy History of colonoscopy History of surgery (~09/09/20) perm cath replacement History of surgery left arm d/t clot in arm from AV fistula use @ [facility] History of tooth extraction three TOOTH Kidney transplant recipient 2013 AT [facility] S/P arteriovenous (AV) fistula creation right arm Family History Grandmother Hx of CABG Mother Diabetes Father Crohn's disease Grandfather (Maternal) Diabetes Uncle Diabetes Grandmother (Maternal) Family history of reaction to anesthesia difficulty waking with colonoscopy Social History Smoking Status: Current every day smoker Tobacco Type: Cigarettes Cigarettes Per Day: half a pack-she denies; Second Hand Exposure: Yes; Hx Alcohol Use: No Hx Substance Use: No Preferred Language: Haitian Communication Ability: Effective Business Services Representative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 Beliefs That Will Affect Care: None marital status: Single Current Living Situation: Family Current Living Situation Comment: Lives with fiance and kids How many Children do You have: 3 Feels Safe at Home: Yes Assistive Devices: None Allergies Allergies Allergy/AdvReac Type Severity Reaction Status Date / Time cefaclor Allergy Intermediate Rash Verified 10/31/22 09:57 amoxicillin AdvReac Intermediate VOMITING Verified 10/31/22 09:57 clavulanic acid AdvReac Intermediate VOMITING Verified 10/31/22 09:57 Home Meds Home Medications Medication Instructions Recorded Confirmed carvedilol 3.125 mg tablet 3.125 mg PO BID 12/21/19 11/12/22 hydroxyzine HCl 25 mg tablet 25 mg PO Q6 PRN Anxiety 04/21/20 11/12/22 calcium acetate(phosphat bind) 667 2,001 mg PO TIDM 06/22/20 11/12/22 mg capsule albuterol sulfate 90 mcg/actuation 2 puff inhalation QID PRN 08/01/20 11/12/22 aerosol inhaler Shortness Of Breath sertraline 100 mg tablet 150 mg PO QAM 08/02/20 11/12/22 amlodipine 10 mg tablet 10 mg PO HS 08/10/20 11/12/22 vitamin B complex-vitamin C-folic 1 tab PO QAM 08/10/20 11/12/22 acid 0.8 mg tablet (Renal Vitamin) cinacalcet 30 mg tablet (Sensipar) 60 mg PO QDD 03/06/21 11/12/22 lorazepam 0.5 mg tablet 0.5 mg PO Q8 PRN anxiety and 03/06/21 11/12/22 before dialysis medroxyprogesterone 150 mg/mL 150 mg IM Q90D 03/06/21 11/12/22 intramuscular suspension (Depo-Provera) gabapentin 400 mg capsule 400 mg PO AMHS 06/27/21 11/12/22 (Neurontin) dicyclomine 10 mg capsule 10 mg PO QID PRN cyst 01/19/22 11/12/22 mometasone-formoterol HFA 200 2 puff inhalation BID 01/19/22 11/12/22 mcg-5 mcg/actuation aerosol inhaler (Dulera) omeprazole 20 mg capsule,delayed 20 mg PO QAM 01/19/22 11/12/22 release albuterol sulfate 2.5 mg/3 mL 2.5 mg inhalation Q4H PRN Wheezing 09/19/22 11/12/22 (0.083 %) solution for nebulization fluticasone propionate 50 2 spray intranasal DAILY PRN 09/19/22 11/12/22 mcg/actuation nasal Congestion spray,suspension (Flonase Allergy Relief) ondansetron HCl 4 mg tablet 4 mg PO Q6H PRN Nausea 09/19/22 11/12/22 trazodone 100 mg tablet 200 mg PO HS 09/19/22 11/12/22 Results & Data (ED) Vital Signs Vital Signs - 24 hr 11/12/22 18:41 11/12/22 20:32 11/12/22 20:32 Temperature 37.1 C Temperature Source Temporal Artery Scan Pulse Rate 83 Pulse Rate [Finger] 87 Respiratory Rate 20 20 Respiratory Effort / Characteristics Non-Labored Spontaneous Respiratory Depth Normal Blood Pressure 183/97 H Blood Pressure [Right Arm] 175/100 H Blood Pressure Mean 125 Blood Pressure Mean [Right Arm] 125 Pulse Oximetry 100 100 100 Oxygen Delivery Method Room Air Room Air Sepsis Recent Fever Within 48 Hours No Sepsis New/Unexplained Change in Mental Status No Sepsis Action Taken by Nursing No Action Required 11/12/22 21:49 11/12/22 22:50 Temperature Temperature Source Pulse Rate Pulse Rate [Finger] 80 79 Respiratory Rate 20 20 Respiratory Effort / Characteristics Respiratory Depth Blood Pressure Blood Pressure [Right Arm] 172/115 H 168/99 H Blood Pressure Mean Blood Pressure Mean [Right Arm] 134 122 Pulse Oximetry 99 100 Oxygen Delivery Method Sepsis Recent Fever Within 48 Hours Sepsis New/Unexplained Change in Mental Status Sepsis Action Taken by Residential Medications Current Medication List: was personally reviewed by me Laboratory Data Attestation: I reviewed the patient's lab results. 11/12/22 19:24 11/12/22 19:24 Lab Results 11/12/22 11/12/22 11/12/22 Range/Units 19:24 19:24 19:24 WBC 5.67 (4.8-10.8) K/ul RBC 2.85 L (4.20-5.40) M/uL Hgb 9.1 L (12.0-16.0) g/dl Hct 29.1 L (37.0-47.0) % MCV 102.1 H (80.0-100.0) fL MCH 31.9 (25.0-34.0) pg MCHC 31.3 L (32.0-36.0) g/dL RDW Std Deviation 55.9 H (36.4-46.3) fL RDW Coeff of Laith 15.3 H (11.5-14.5) % Plt Count 105 L (130-400) K/uL MPV 10.5 (9.4-12.4) fL Immature Gran % (Auto) 0.4 % Neut % (Auto) 73.5 % Lymph % (Auto) 16.9 % Dawes % (Auto) 5.6 % Eos % (Auto) 3.2 % Baso % (Auto) 0.4 % Neut # (Auto) 4.17 (1.40-6.50) K/uL Lymph # (Auto) 0.96 L (1.2-3.4) K/uL Dawes # (Auto) 0.32 (0.11-0.59) K/uL Eos # (Auto) 0.18 (0-0.50) K/uL Baso # (Auto) 0.02 (0-0.2) K/uL Immature Gran # (Auto) 0.02 (0.01-0.20) K/uL Sodium 138 (136-145) mmol/L Potassium 5.2 H (3.5-5.1) mmol/L Chloride 100 (98-107) mmol/L Carbon Dioxide 17 L (21-32) mmol/L Anion Gap 21 H (3-11) BUN 66 H (6-23) mg/dl Creatinine 13.89 H* D (0.6-1.2) mg/dl Est Cr Clr Drug Dosing 6.6 ml/min Est GFR ( Amer) 3.5 ml/min Est GFR (Non-Af Amer) 3.0 ml/min BUN/Creatinine Ratio 4.8 L (10-20) Glucose 103 H (70-99(Fasting)) mg/dl Calcium 9.5 (8.5-10.1) mg/dl Phosphorus 5.7 H (2.5-4.9) mg/dl Magnesium 2.9 H (1.7-2.4) mg/dl Total Bilirubin 0.4 (0.2-1.0) mg/dl AST 20 (13-39) U/L ALT 15 (7-52) U/L Alkaline Phosphatase 72 (34-104) U/L Troponin I High Sens 48.3 H (0-14) pg/ml Total Protein 7.0 (6.0-8.3) gm/dl Albumin 3.8 (3.4-5.0) gm/dl Globulin 3.2 (2.5-4.0) gm/dl Albumin/Globulin Ratio 1.2 (0.9-2) TSH (0.300-4.500) uIu/ml SARS-CoV-2, RNA, NAAT (NEGATIVE) 11/12/22 11/12/22 Range/Units 19:24 20:30 WBC (4.8-10.8) K/ul RBC (4.20-5.40) M/uL Hgb (12.0-16.0) g/dl Hct (37.0-47.0) % MCV (80.0-100.0) fL MCH (25.0-34.0) pg MCHC (32.0-36.0) g/dL RDW Std Deviation (36.4-46.3) fL RDW Coeff of Laith (11.5-14.5) % Plt Count (130-400) K/uL MPV (9.4-12.4) fL Immature Gran % (Auto) % Neut % (Auto) % Lymph % (Auto) % Dawes % (Auto) % Eos % (Auto) % Baso % (Auto) % Neut # (Auto) (1.40-6.50) K/uL Lymph # (Auto) (1.2-3.4) K/uL Dawes # (Auto) (0.11-0.59) K/uL Eos # (Auto) (0-0.50) K/uL Baso # (Auto) (0-0.2) K/uL Immature Gran # (Auto) (0.01-0.20) K/uL Sodium (136-145) mmol/L Potassium (3.5-5.1) mmol/L Chloride (98-107) mmol/L Carbon Dioxide (21-32) mmol/L Anion Gap (3-11) BUN (6-23) mg/dl Creatinine (0.6-1.2) mg/dl Est Cr Clr Drug Dosing ml/min Est GFR ( Amer) ml/min Est GFR (Non-Af Amer) ml/min BUN/Creatinine Ratio (10-20) Glucose (70-99(Fasting)) mg/dl Calcium (8.5-10.1) mg/dl Phosphorus (2.5-4.9) mg/dl Magnesium (1.7-2.4) mg/dl Total Bilirubin (0.2-1.0) mg/dl AST (13-39) U/L ALT (7-52) U/L Alkaline Phosphatase (34-104) U/L Troponin I High Sens (0-14) pg/ml Total Protein (6.0-8.3) gm/dl Albumin (3.4-5.0) gm/dl Globulin (2.5-4.0) gm/dl Albumin/Globulin Ratio (0.9-2) TSH 3.461 (0.300-4.500) uIu/ml SARS-CoV-2, RNA, NAAT NEGATIVE (NEGATIVE) Administered Medications Morphine Sulfate (Morphine Sulfate 4 Mg/Ml 1 Ml Carp\\Vial) 4 mg IV Q30M PRN PRN Reason: Pain Stop: 11/26/22 22:03 Last Admin: 11/13/22 00:06 Dose: 4 mg Documented By: Admin: 11/12/22 22:12 Dose: 4 mg Documented By: ARASH Discontinued Medications Labetalol HCl (Labetalol Hcl Iv 5 Mg/Ml 20ml) 10 mg IV NOW STA Stop: 11/12/22 21:58 Last Admin: 11/12/22 22:04 Dose: 10 mg Documented By: ARASH Co-signed By: QGV Morphine Sulfate (Morphine Sulfate 4 Mg/Ml 1 Ml Carp\\Vial) 4 mg IV NOW STA Stop: 11/12/22 20:13 Last Admin: 11/12/22 20:27 Dose: 4 mg Documented By: ARASH Imaging Data My Impression: Chest x-ray per my review: There is cardiomegaly and some CHF, no pneumonia or pneumothorax. Radiologist's Impression: Face CT 11/12/22 18:41 Exam(s): CT FACIAL Without Contrast EXAM: CT Maxillofacial Without Intravenous Contrast CLINICAL HISTORY: Reason for exam: Nasal trauma. TECHNIQUE: Axial computed tomography images of the face without intravenous contrast. CTDI is 15.01 mGy and DLP is 495.97 mGy-cm. Automated exposure control was utilized for the study. A dose lowering technique was utilized adhering to the principles of ALARA. COMPARISON: No relevant prior studies available. FINDINGS: Bones/joints: Nondisplaced fracture of the maxillary spine. Soft tissues: Unremarkable. Orbits: Unremarkable. Sinuses: Unremarkable. No air-fluid levels. Nasal cavity/septum: Intact nasal septum and nasal bridge. IMPRESSION: 1. Nondisplaced fracture of the maxillary spine. 2. Intact nasal bridge. Electronically signed by: Nando Rodrigez MD 11/12/22 20:[address] 11/12/22 18:41 Exam(s): CT HEAD Without Contrast EXAM: CT Head Without Intravenous Contrast CLINICAL HISTORY: Reason for exam: Dizzy, fall, facial trauma. TECHNIQUE: Axial computed tomography images of the head/brain without intravenous contrast. CTDI is 37 mGy and DLP is 537.48 mGy-cm. Automated exposure control was utilized for the study. A dose lowering technique was utilized adhering to the principles of ALARA. COMPARISON: No relevant prior studies available. FINDINGS: No acute intracranial hemorrhage. No midline shift or mass effect. The territorial valadez-white matter differentiation is maintained throughout. The ventricles and sulci are commensurate with age. The visualized orbits appear grossly unremarkable. The calvarium is intact. The visualized paranasal sinuses and mastoid air cells are grossly clear. IMPRESSION: No acute intracranial hemorrhage, midline shift, or mass effect. Electronically signed by: Nando Rodrigez MD 11/12/22 20:[address] 11/12/22 18:44 Exam(s): CT C SPINE EXAM: CT Cervical Spine Without Intravenous Contrast CLINICAL HISTORY: Reason for exam: Dizziness, fall, facial trauma. TECHNIQUE: Axial computed tomography images of the cervical spine without intravenous contrast. CTDI is 15.01 mGy and DLP is 495.97 mGy-cm. Automated exposure control was utilized for the study. A dose lowering technique was utilized adhering to the principles of ALARA. COMPARISON: No relevant prior studies available. FINDINGS: The vertebral body heights are maintained. There is no spondylolisthesis. The craniocervical junction is intact. The atlanto-dens interval is maintained. The dens is intact. The intervertebral disc spaces are preserved. There is no spinal canal or neural foraminal stenosis. Small bilateral pleural effusions. IMPRESSION: No acute fracture or subluxation of the cervical spine. Electronically signed by: Nando Rodrigez MD 11/12/22 20:08 PM Discharge Plan Visit Data Chief Complaint: Dizziness Stated Complaint: SOB,FELL ON FACE ED Provider: [place] Discharge Problem: SOB (shortness of breath), Fluid overload, Medical non-compliance, Facial fracture, Abrasion of knee, Fall Patient Disposition: Admitted As Inpatient Condition: Fair Forms Stand Alone Forms: My [facility] Prescriptions Prescriptions: No Action calcium acetate(phosphat bind) 667 mg capsule 2,001 mg PO TIDM Rx Instructions: 3 tabs with meals sertraline 100 mg tablet 150 mg PO QAM Rx Instructions: 1 & 1/2 TABLET DOSE carvedilol 3.125 mg tablet 3.125 mg PO BID hydroxyzine HCl 25 mg tablet 25 mg PO Q6 PRN (Reason: Anxiety) albuterol sulfate 90 mcg/actuation HFA aerosol inhaler 2 puff INHALATION QID PRN (Reason: Shortness Of Breath) amlodipine 10 mg Tablet 10 mg PO HS Renal Vitamin 0.8 mg Tablet 1 tab PO QAM lorazepam 0.5 mg tablet 0.5 mg PO Q8 PRN (Reason: anxiety and before dialysis) medroxyprogesterone [Depo-Provera] 150 mg/mL suspension 150 mg IM Q90D cinacalcet [Sensipar] 30 mg Tablet 60 mg PO QDD Rx Instructions: Takes with evening meal gabapentin [Neurontin] 400 mg capsule 400 mg PO AMHS albuterol sulfate 2.5 mg /3 mL (0.083 %) Solution For Nebulization 2.5 mg INHALATION Q4H PRN (Reason: Wheezing) ondansetron HCl 4 mg Tablet 4 mg PO Q6H PRN (Reason: Nausea) trazodone 100 mg tablet 200 mg PO HS fluticasone propionate [Flonase Allergy Relief] 50 mcg/actuation [place],Suspension 2 spray INTRANASAL DAILY PRN (Reason: Congestion) Rx Instructions: administer into each nostril dicyclomine 10 mg capsule 10 mg PO QID PRN (Reason: cyst) omeprazole 20 mg capsule,delayed release(DR/EC) 20 mg PO QAM Dulera 200-5 mcg/actuation HFA aerosol inhaler 2 puff INHALATION BID Referrals Referrals: Adolph Aldridge MD [Primary Care Provider] -
--- NOTE | 2022-11-12 20:27 | CT Scan Report ---
Exam(s): CT FACIAL Without Contrast EXAM: CT Maxillofacial Without Intravenous Contrast CLINICAL HISTORY: Reason for exam: Nasal trauma. TECHNIQUE: Axial computed tomography images of the face without intravenous contrast. CTDI is 15.01 mGy and DLP is 495.97 mGy-cm. Automated exposure control was utilized for the study. A dose lowering technique was utilized adhering to the principles of ALARA. COMPARISON: No relevant prior studies available. FINDINGS: Bones/joints: Nondisplaced fracture of the maxillary spine. Soft tissues: Unremarkable. Orbits: Unremarkable. Sinuses: Unremarkable. No air-fluid levels. Nasal cavity/septum: Intact nasal septum and nasal bridge. IMPRESSION: 1. Nondisplaced fracture of the maxillary spine. 2. Intact nasal bridge. Electronically signed by: Nando Rodrigez MD 11/12/22 20:26 PM
[2022-11-12 21:16] LABS: Troponin I High Sensitivity 48.3 pg/ml (0-14)
[2022-11-12 21:51] LABS: Phosphorus 5.7 mg/dl (2.5-4.9)
[2022-11-12] MEDS ORDERED: LABETALOL HCL IV 5 MG/ML 20ML IV STA (21:57)
[2022-11-12 21:58] LABS: Albumin Level 3.8 gm/dl (3.4-5.0); Bilirubin,Total 0.4 mg/dl (0.2-1.0); Calcium 9.5 mg/dl (8.5-10.1); Magnesium 2.9 mg/dl (1.7-2.4); Potassium 5.2 mmol/L (3.5-5.1)
[2022-11-12 22:09] LABS: Albumin Globulin Ratio 1.2 (0.9-2); BUN Creatinine Ratio 4.8 (10-20); Creatinine Clr Calc Pharmacy 6.6 ml/min; Est GFR (African American) 3.5 ml/min; Globulin 3.2 gm/dl (2.5-4.0)
[2022-11-12] MEDS: MoRPHine SULFATE 4 MG/ML 1 ML CARP\\VIAL IV PRN (22:12)
[2022-11-13] MEDS: MoRPHine SULFATE 4 MG/ML 1 ML CARP\\VIAL IV PRN ×2 (00:06→02:11)
[2022-11-13] MEDS ORDERED: diphenhydrAMINE Capsule 25 MG CAP PO ONE (01:04)
[2022-11-13] MEDS ORDERED: ALBUTEROL HFA 8 GM INHALER INH PRN (02:27)
[2022-11-13] MEDS ORDERED: NITROGLYCERIN SL 0.4 MG/TAB TAB SL PRN (02:27)
[2022-11-13] MEDS ORDERED: ALBUTEROL 0.083% NEBU SOLN 3 ML VIAL INH PRN (02:27)
[2022-11-13] MEDS ORDERED: ONDANSETRON 4 MG OD TAB PO PRN (02:27)
[2022-11-13] MEDS ORDERED: POLYETHYLENE (MIRALAX) 17 GM PACK PO PRN (02:27)
[2022-11-13] MEDS ORDERED: FLUTICASONE PROPIONATE NA SPR 16 GM BTL PRN (02:27)
[2022-11-13] MEDS ORDERED: DICYCLOMINE HCL 10 MG CAP PO PRN (02:27)
--- NOTE | 2022-11-13 03:39 | History and Physical Report ---
DATE OF ADMISSION: 11/13/2022. CHIEF COMPLAINT: Fall and missed dialysis. HISTORY OF PRESENT ILLNESS: This is a 37-year-old female with past medical history significant for type 2 diabetes, currently not on any medication; peripheral neuropathy; end-stage renal disease on hemodialysis; hypertension; GERD; restless legs syndrome; history of chest pains; migraines; history of syncope; depression with anxiety; bipolar disorder, presents with fall and dizziness. The patient says she missed her dialysis 3 times because her car broke and she missed the van and today she was feeling dizzy and she was shopping when on the walkway, her leg got stuck and she fell down and fell on the face. No loss of consciousness. Was able to get up and she also has some knee bruises, but able to get up and finish her shopping. She had some bleeding from the nose and some bruise on the upper lip, that is the reason she came to the ER. Imaging study shows nondisplaced fracture of the maxillary spine, intact nasal bridge. ER talked to the maxillofacial surgery and they recommended observation. Currently, resting comfortably, hemodynamically stable. She has chest pain, some shortness of breath, some nausea. No abdominal pain. Complains of itching, requests some Benadryl. No blurred visions, no earache, no runny nose, no sore throat, no difficulty swallowing. Normal bowel movements. ALLERGIES: CEFACLOR, AMOXICILLIN, CLAVULANIC ACID. PAST MEDICAL HISTORY: As mentioned above. PAST SURGICAL HISTORY: AV access, , colonoscopy, left heart catheterization, cystoscopy, EGD, EGD with endoscopic ultrasound, tunneled catheter placement, knee arthroscopy, laparoscopic cholecystectomy, ligation of oviducts, renal biopsy, percutaneous mechanical venous thrombectomy, renal transplant. MEDICATIONS: The patient is on albuterol 2 puffs inhalation q.i.d. p.r.n., amlodipine 10 mg p.o. at bedtime, _calcium acetate 2001mg p.o. t.i.d. with meals, Coreg 3.125 mg p.o. b.i.d., Sensipar 60 mg p.o. daily, dicyclomine 10 mg p.o. q.i.d. p.r.n., Dulera 2 puffs inhalation b.i.d., Flonase 2 sprays intranasal daily, gabapentin 400 mg p.o. b.i.d., hydroxyzine 25 mg p.o. q. 6 hours p.r.n. anxiety, lorazepam 0.5 mg p.o. q. 8 hours, anxiety and before dialysis, Depo-Provera 150 mg IM, 90 days, omeprazole 20 mg p.o. a.m., Zofran 4 mg p.o. q. 6 hours p.r.n., renal vitamin 1 tablet p.o. a.m., sertraline 150 mg p.o. a.m., trazodone 200 mg p.o. at bedtime. FAMILY HISTORY: Significant for mother has diabetes, thyroid disorder; father has depression; sister has thyroid disorder; paternal grandmother had questionable lupus; father has Crohn's. SOCIAL HISTORY: . Quit smoking in December 2021. Smoked half pack a day for 11 years. No alcohol use. No drug use. REVIEW OF SYSTEMS: As per HPI. Rest of the review of systems is negative. PHYSICAL EXAMINATION: GENERAL: The patient is obese, not in acute distress. VITAL SIGNS: Temperature 37.1, pulse 79, respiratory rate 20, blood pressure 168/99, and oxygen 100% on room air. HEENT: Pupils equal, round and reactive to light. Oral mucosa moist. NECK: No JVD, no neck masses. CARDIOVASCULAR: S1 and S2 heard. Regular rate and rhythm. No murmur, no gallop. RESPIRATORY SYSTEM: Normal AP diameter. No accessory muscle use. No wheezing, no crackles. ABDOMEN: Soft, bowel sounds present, nontender, no distention. CENTRAL NERVOUS SYSTEM: Alert and oriented. Nonfocal. EXTREMITIES: Mild pedal edema, no erythema seen. SKIN: Has bruising on the right upper lip region. LABORATORY DATA: WBC 5.6, hemoglobin 9.1, hematocrit 29.1, platelets 105. Sodium 138, potassium 5.2, chloride 100, CO2 of 17, BUN 66, creatinine 13, serum glucose 103, calcium 9.5, phosphorus 5.7, magnesium 2.9, total bilirubin 0.4, AST 20, ALT 15, alkaline phosphatase 72. Troponin I high sensitivity 48.3. TSH of 3.4. SARS-CoV-2 rapid test negative. IMAGING DATA: Chest x-ray, no acute findings, . Cervical spine CT, no acute findings. CT of the head, no acute findings. Face CT is showing nondisplaced fracture of the maxillary spine, intact nasal bridge. EKG: Normal sinus rhythm at a rate of 81, no significant change was found. ASSESSMENT AND PLAN: This is a 37-year-old female who presents with dizziness and fall. 1. Dizziness and mechanical fall and maxillary spine fracture. Consult maxillo facial surgery.Pain control. Dizziness is most likely secondary to noncompliance with dialysis. Will monitor in the [employer] tele. 2. End-stage renal disease: On hemodialysis. Missed three dialysis because she missed the van. Will consult with Nephrology. dialysis in the a.m. 3. Mild hyperkalemia: Plan for dialysis in the a.m. 4. Mild elevation of troponin to 48: elevated previous admissions. Will repeat labs, troponin in the a.m. 5. Depression: On sertraline and trazodone. 6. Anxiety: On hydroxyzine p.r.n. 7. Hypertension: On amlodipine and Coreg. Will monitor the blood pressure. 8. Diabetes: Not on medication. Will follow HbA1c levels. 9. Anemia of chronic kidney disease: Will follow the labs. 10. Thrombocytopenia: Platelets of 105. Seems to be chronic, will follow the labs. 11. Deep venous thrombosis prophylaxis: Placed on sequential compression devices for now. DISPOSITION: Closely monitor in the [facility]. PT/OT prior to discharge. Social service to help with discharge planning. Job ID: [id number] MTDD
--- NOTE | 2022-11-13 07:37 | XRay Report ---
XR chest 1V portable HISTORY: 37 years-old Female sob acute shortness of breath COMPARISON: 10/31/2022 TECHNIQUE: AP view of the chest FINDINGS: Cardiac silhouette is enlarged. There is no pneumothorax, pleural effusion or overt pulmonary edema. Pulmonary vascular congestion is suggested. Vascular stent graft of the right superior mediastinum. B ones appear grossly intact. IMPRESSION: Cardiomegaly with interstitial coarsening which may be secondary to patient body habitus/ technique versus pulmonary vascular congestion. ACT 112: Negative or not required by law. The above report was generated using voice recognition software. It may contain grammatical, syntax o r spelling errors. Electronically signed by: Cristhian Copeland M.D. 11/13/2022 7:35 AM
[2022-11-13 07:39] LABS: Basophils # (auto) 0.03 K/uL (0-0.2); Basophils % (auto) 0.5 %; Eosinophils # (auto) 0.18 K/uL (0-0.50); Eosinophils % (auto) 2.9 %; Hemoglobin 9.7 g/dl (12.0-16.0); Immature Granulocytes # (auto) 0.02 K/uL (0.01-0.20); Immature Granulocytes % (auto) 0.3 %; Lymphocytes # (auto) 1.35 K/uL (1.2-3.4); Mean Corpuscular Hemoglobin 32.4 pg (25.0-34.0); Mean Corpuscular Hgb Conc 31.3 g/dL (32.0-36.0); Mean Corpuscular Volume 103.7 fL (80.0-100.0); Mean Platelet Volume 10.6 fL (9.4-12.4); Monocytes # (auto) 0.43 K/uL (0.11-0.59); Neutrophils # (auto) 4.13 K/uL (1.40-6.50); Neutrophils % (auto) 67.3 %; Platelet Count 92 K/uL (130-400); RDW Coefficient of Variation 15.3 % (11.5-14.5); RDW Standard Deviation 57.3 fL (36.4-46.3); Red Blood Count 2.99 M/uL (4.20-5.40); White Blood Count 6.14 K/ul (4.8-10.8)
[2022-11-13 08:07] LABS: Calcium 9.5 mg/dl (8.5-10.1); Creatinine Clr Calc Pharmacy 6.7 ml/min; Est GFR (African American) 3.6 ml/min; Est GFR (Non-African American) 3.1 ml/min; Magnesium 2.9 mg/dl (1.7-2.4); Potassium 5.3 mmol/L (3.5-5.1); Troponin I High Sensitivity 47.7 pg/ml (0-14)
[2022-11-13 08:15] LABS: Estimated Average Glucose 108 mg/dl; Hemoglobin A1C 5.4 % (4.5-5.6)
[2022-11-13] MEDS: CALCIUM ACETATE 667 MG CAP/TAB PO SCH ×3 (08:32→17:23)
[2022-11-13] MEDS: carvediloL 3.125 MG TAB PO SCH ×2 (08:33→20:31)
[2022-11-13] MEDS: GABAPENTIN 300 MG CAP PO SCH (08:33)
[2022-11-13] MEDS: FLUTICASONE/VILANTEROL 200/25MCG 14 PUFFS/INHALER INH SCH (08:33)
[2022-11-13] MEDS: SERTRALINE HCL 50 MG TABLET PO SCH (08:34)
[2022-11-13] MEDS: NEPHROCAPS PO SCH (08:34)
[2022-11-13] MEDS: PANTOprazole 40 MG TAB PO SCH (08:34)
[2022-11-13] MEDS ORDERED: NON-FORMULARY MEDICATION (Mometasone-Formoterol [Dulera] 200-5 mcg/actuation HFA aerosol i INH SCH (09:00)
--- NOTE | 2022-11-13 10:03 | Oral/Maxillofacial Consult ---
Date of Consultation November 13, 2022 History of Present Illness Attending Physician: Lindsay Garcia MD History of Present Illness I discussed this case with the ER physician last night. The CT scan was reviewed by me personally. CHIEF COMPLAINT: Fall and missed dialysis. HISTORY OF PRESENT ILLNESS: This is a 37-year-old female with past medical history significant for type 2 diabetes, currently not on any medication; peripheral neuropathy; end-stage renal disease on hemodialysis; hypertension; GERD; restless legs syndrome; history of chest pains; migraines; history of syncope; depression with anxiety; bipolar disorder, presents with fall and dizziness. The patient says she missed her dialysis 3 times because her car broke and she missed the van and today she was feeling dizzy and she was shopping when on the walkway, her leg got stuck and she fell down and fell on the face. No loss of consciousness. Was able to get up and she also has some knee bruises, but able to get up and finish her shopping. She had some bleeding from the nose and some bruise on the upper lip, that is the reason she came to the ER. Imaging study shows nondisplaced fracture of the maxillary spine, intact nasal bridge. ER talked to the maxillofacial surgery and they recommended observation. Currently, resting comfortably, hemodynamically stable. She has chest pain, some shortness of breath, some nausea. No abdominal pain. Complains of itching, requests some Benadryl. No blurred visions, no earache, no runny nose, no sore throat, no difficulty swallowing. Normal bowel movements. This is a non displaced nasal maxillary spine fracture which is an insignificant fracture that will require no treatment of follow up. Her nose or septum are not fracture. These are self limiting injuries--usually a few days of discomfort which will gradually heal on their own. Not treatment needed based on my conversation with ER physician and review of the CT scan. Allergies Allergy/AdvReac Type Severity Reaction Status Date / Time cefaclor Allergy Intermediate Rash Verified 10/31/22 09:57 amoxicillin AdvReac Intermediate VOMITING Verified 10/31/22 09:57 clavulanic acid AdvReac Intermediate VOMITING Verified 10/31/22 09:57 Home Medications Medication Instructions Recorded Confirmed Type carvedilol 3.125 mg tablet 3.125 mg PO BID 12/21/19 11/12/22 History hydroxyzine HCl 25 mg tablet 25 mg PO Q6 PRN Anxiety 04/21/20 11/12/22 History calcium acetate(phosphat bind) 667 2,001 mg PO TIDM 06/22/20 11/12/22 History mg capsule albuterol sulfate 90 mcg/actuation 2 puff inhalation QID PRN 08/01/20 11/12/22 History aerosol inhaler Shortness Of Breath sertraline 100 mg tablet 150 mg PO QAM 08/02/20 11/12/22 History amlodipine 10 mg tablet 10 mg PO HS 08/10/20 11/12/22 History vitamin B complex-vitamin C-folic 1 tab PO QAM 08/10/20 11/12/22 History acid 0.8 mg tablet (Renal Vitamin) cinacalcet 30 mg tablet (Sensipar) 60 mg PO QDD 03/06/21 11/12/22 History lorazepam 0.5 mg tablet 0.5 mg PO Q8 PRN anxiety and 03/06/21 11/12/22 History before dialysis medroxyprogesterone 150 mg/mL 150 mg IM Q90D 03/06/21 11/12/22 History intramuscular suspension (Depo-Provera) gabapentin 400 mg capsule 400 mg PO AMHS 06/27/21 11/12/22 History (Neurontin) dicyclomine 10 mg capsule 10 mg PO QID PRN cyst 01/19/22 11/12/22 History mometasone-formoterol HFA 200 2 puff inhalation BID 01/19/22 11/12/22 History mcg-5 mcg/actuation aerosol inhaler (Dulera) omeprazole 20 mg capsule,delayed 20 mg PO QAM 01/19/22 11/12/22 History release albuterol sulfate 2.5 mg/3 mL 2.5 mg inhalation Q4H PRN Wheezing 09/19/22 11/12/22 History (0.083 %) solution for nebulization fluticasone propionate 50 2 spray intranasal DAILY PRN 09/19/22 11/12/22 History mcg/actuation nasal Congestion spray,suspension (Flonase Allergy Relief) ondansetron HCl 4 mg tablet 4 mg PO Q6H PRN Nausea 09/19/22 11/12/22 History trazodone 100 mg tablet 200 mg PO HS 09/19/22 11/12/22 History Patient History Medical History Anemia due to end stage renal disease Anemia of chronic disease Anxiety Anxiety and depression Asthma "BEEN A WHILE" SINCE USING LAST RESCUE INHALER AVF (arteriovenous fistula) bilt---currently using right for dialysis Bipolar disorder CKD (chronic kidney disease) stage V requiring chronic dialysis Depression Depression with anxiety Dialysis patient SATURDAY/SAT/SATURDAY AT [facility] DM2 (diabetes mellitus, type 2) DM2 (diabetes mellitus, type 2) DVT prophylaxis ESRD (end stage renal disease) on dialysis ESRD (end stage renal disease) on dialysis Fistula right arm (currently being used) and left arm FSGS (focal segmental glomerulosclerosis) DX INITIALLY 2012 (CAUSING ESRD 2012) GERD (gastroesophageal reflux disease) History of abnormal cervical Papanicolaou smear HTN (hypertension) Peripheral neuropathy Prolonged QT interval Restless leg syndrome Status post fall Symptomatic anemia Tobacco abuse Surgical History H/O eye surgery LASER SURGERY LEFT H/O hernia repair ABDOMINAL WALL H/O knee surgery LEFT KNEE X 2 H/O tubal ligation H/O: X 2 History of cardiac cath 2016 NO STENTS History of cholecystectomy History of colonoscopy History of surgery (~09/09/20) perm cath replacement History of surgery left arm d/t clot in arm from AV fistula use @ [facility] History of tooth extraction three TOOTH Kidney transplant recipient 2013 AT [facility] S/P arteriovenous (AV) fistula creation right arm Family History Grandmother Hx of CABG Mother Diabetes Father Crohn's disease Grandfather (Maternal) Diabetes Uncle Diabetes Grandmother (Maternal) Family history of reaction to anesthesia difficulty waking with colonoscopy Social History Smoking Status: Current every day smoker Tobacco Type: Cigarettes Cigarettes Per Day: half a pack-she denies; Second Hand Exposure: Yes; Hx Alcohol Use: Yes Alcohol type: hard liquor Alcohol Intake Frequency Comment: q3 months Hx Substance Use: Yes Preferred Language: German Communication Ability: Effective Cabinet Builder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 Beliefs That Will Affect Care: None marital status: Single Current Living Situation: Family Current Living Situation Comment: Lives with fiance and kids How many Children do You have: 3 Feels Safe at Home: Yes Assistive Devices: None Results & Data Vital Signs (Past 12 Hours) Vital Signs Pulse Resp BP Pulse Ox Pulse Ox O2 Del Method O2 Del Method 11/13/22 02:30 87 17 160/98 H 97 Room Air 11/13/22 02:30 98 Room Air 11/13/22 01:47 80 17 97 Room Air 11/12/22 22:50 79 20 168/99 H 100 PG Care Time/CCT Total # of Minutes Spent Total Time Spent with Patient: Total time spent is greater than 50% in coordination of care (as documented) at patient's floor/unit and/or counseling patient: Coding Level of Care Code None Diagnoses
--- NOTE | 2022-11-13 11:01 | Electrocardiogram Report ---
Test Reason : Blood Pressure : / mmHG Vent. Rate : 081 BPM Atrial Rate : 081 BPM P-R Int : 142 ms QRS Dur : 098 ms QT Int : 412 ms P-R-T Axes : 043 012 016 degrees QTc Int : 478 ms Poor data quality, interpretation may be adversely affected Normal sinus rhythm Poor R wave progression, consider anterior MD vs. lead placement vs. LVH Abnormal ECG When compared with ECG of 11-NOV-2022 11:43, No significant change was found Confirmed by Daljit Thompson ([id number]) on 11/13/2022 11:01:38 AM Referred By: REFERRED SELF Confirmed By:Ric Thompson
[2022-11-13] MEDS ORDERED: EPOETIN ALFA 10,000 UNITS/ML VIAL IV ONE (13:02)
[2022-11-13] MEDS ORDERED: SODIUM CHLORIDE 0.9% 1000ML 1,000 ML IV PRN (13:02)
[2022-11-13] MEDS: hydrOXYzine HCl 25 MG TAB PO PRN (13:15)
[2022-11-13] MEDS: LORazepam 0.5 MG TAB PO PRN (13:15)
[2022-11-13] MEDS ORDERED: LORazepam 2 MG/1 ML VIAL IV STA (14:15)
--- NOTE | 2022-11-13 14:19 | Communication Note ---
Date of Service: November 13, 2022 Patient seen and he continues with. Could not get much history from patient as he was really agitated and anxious at the time Stated she felt like she was going to have a panic attack Reports some nasal pain. Discussed with RN. Give ativan 1mg iv She gets ativan prn with HD per patient. Oromaxillofacial surgeon recs noted HD per nephrology Other plans as detailed in H&P this morning
[2022-11-13] MEDS ORDERED: LORazepam 2 MG/1 ML VIAL ONE (14:22)
--- NOTE | 2022-11-13 15:45 | Consultation Report ---
NEPHROLOGY CONSULTATION NOTE DATE OF SERVICE: 11/13/2022. REASON FOR CONSULTATION: Dialysis patient admitted after a fall and fracture of the maxillary sinus. HISTORY OF PRESENT ILLNESS: The patient is a 37-year-old female with longstanding type 2 diabetes, f chintan kidney transplant, end-stage renal disease, on hemodialysis, but very, very noncompliant; hyper tension as well as multiple psychological diagnoses. Her last dialysis was 1 week ago on Saturday and she had missed dialysis 3 times in a row, but in this 3 times, she has come to the Emergency Departme twice. She claims she was feeling dizzy while shopping on the walkway, her leg got stuck and she fell face down. Imaging shows nondisplaced fracture of the maxillary sinus. Maxillofacial surgeon nader palacios already evaluated the patient and recommended conservative measures and no surgery is needed. The patient is getting dialysis at this time after one week of missing dialysis. Her blood pressure is h igh. She is having panic attacks and is shaking even though she just received Ativan prior to dialys is. Denies any worsening shortness of breath or any other symptoms. ALLERGIES: Reviewed. MEDICATIONS: Home medication list was reviewed in detail and is as per the reconciliation list. PAST MEDICAL AND SURGICAL HISTORY: Includes type 2 diabetes, currently not on any medication; end-st age renal disease, on hemodialysis, but very noncompliant; hypertension, GERD, restless leg syndrome, migraine, history of syncope, depression with anxiety/bipolar disorder, AV fistula surgery, asthma, prolonged QT interval, multiple eye surgeries, tubal ligation, , knee surgery, hernia repair , cholecystectomy, kidney transplant recipient 2013, which has since then failed. FAMILY HISTORY: Negative for renal disease or dialysis. SOCIAL HISTORY: Current everyday smoker. Occasional alcohol. She lives with her fiance and has 3 k ids. REVIEW OF SYSTEMS: As detailed in HPI; unless stated otherwise, 12 systems reviewed and negative. PHYSICAL EXAMINATION: GENERAL: Anxious young female who is awake, alert, oriented x3. HEENT: Mucous membrane is moist. NECK: Supple. No jugular venous distention. VITAL SIGNS: Blood pressure 156/104, pulse rate 84, temperature 36.3, 97% on room air. CHEST: Bilateral decreased breath sounds, occasional crackles. CARDIOVASCULAR: S1 and S2, regular. ABDOMEN: Soft, nontender. EXTREMITIES: Show trace edema. SKIN: Shows no rashes. LABORATORY TESTS: Chest x-ray shows some pulmonary congestion. Chemistry shows hemoglobin 9.7, WBC count 6,000, BUN 68 , creatinine 13.5. Sodium 137, potassium 5.3, bicarbonate 21, magnesium 2.9. Cervical spine CT show s nondisplaced fracture of the maxillary spine, intact nasal bridge. ASSESSMENT AND PLAN: A 37-year-old female with multiple psychosocial problems and very noncompliant with dialysis, presented to the hospital after an episode of fall where she sustained a fracture of t he maxillary spine without displacement. I have been consulted for dialysis management. 1. End-stage renal disease: She has not had dialysis for a week. So as expected, her creatinine is high. Potassium is slightly high and she does have some evidence of pulmonary congestion. However, she still looks fairly okay considering no dialysis for a week. We are doing dialysis today for abo ut 3.5 hours and we will try to take about 3.5-4 kilos off. Tomorrow is her regular day and we will do her again if allowed by scheduling and nurse's coverage. Her noncompliance with dialysis has been very, very problematic. She has been explained about this multiple times. 2. Fracture of the maxillary spine. This is being managed conservatively as per advice of the [facility] lofacial surgeon. Thank you very much for the consult. Job ID: [id number]
[2022-11-13] MEDS: CINACALCET HCL 30 MG TAB PO SCH (17:23)
[2022-11-13] MEDS: amLODIPine BESYLATE 5 MG TAB PO SCH (20:31)
[2022-11-13] MEDS: traZODone HCL 100 MG TAB PO SCH (20:31)
[2022-11-13] MEDS: ACETAMINOPHEN 325 MG TAB PO PRN (20:31)
[2022-11-14] MEDS ORDERED: hydrALAZINE HCL 20 MG/ML VIAL IV STA (00:35)
[2022-11-14] MEDS: LORazepam 0.5 MG TAB PO PRN ×3 (00:48→22:22)
[2022-11-14] MEDS ORDERED: cloNIDine HCL 0.1 MG TAB PO ONE (03:54)
[2022-11-14] MEDS: carvediloL 3.125 MG TAB PO SCH ×2 (09:18→20:09)
[2022-11-14] MEDS: SERTRALINE HCL 50 MG TABLET PO SCH (09:23)
[2022-11-14] MEDS: NEPHROCAPS PO SCH (09:23)
[2022-11-14] MEDS: PANTOprazole 40 MG TAB PO SCH (09:23)
[2022-11-14] MEDS: CALCIUM ACETATE 667 MG CAP/TAB PO SCH ×3 (09:23→15:39)
[2022-11-14] MEDS: ACETAMINOPHEN 325 MG TAB PO PRN ×2 (09:23→17:12)
[2022-11-14] MEDS: GABAPENTIN 300 MG CAP PO SCH (09:23)
[2022-11-14] MEDS: hydrOXYzine HCl 25 MG TAB PO PRN ×2 (09:23→22:22)
[2022-11-14] MEDS: FLUTICASONE/VILANTEROL 200/25MCG 14 PUFFS/INHALER INH SCH (09:24)
--- NOTE | 2022-11-14 10:30 | Dialysis Progress Note ---
Date of Service November 14, 2022 Assessment & Plan Admission and Anticipated Discharge Date Admission Date: November 13, 2022 Subjective S---Seen during Dialysis. Currently sleeping. yesterday only 1hr 23 mins of d ialysis done . very anxious and Once she wakes up she starts moving around and moving her legs and arm. PHYSICAL EXAMINATION: GENERAL: Anxious young female Currently sleeping. HEENT: Mucous membrane is moist. NECK: Supple. No jugular venous distention. CHEST: Bilateral decreased breath sounds, occasional crackles. CARDIOVASCULAR: S1 and S2, regular. ABDOMEN: Soft, nontender. EXTREMITIES: Show trace edema. SKIN: Shows no rashes. LABORATORY TESTS: Chest x-ray shows some pulmonary congestion. Chemistry shows hemoglobin 9.7, WBC count 6,000, BUN 68, creatinine 13.5. Sodium 137, potassium 5.3, bicarbonate 21, magnesium 2.9. Cervical spine CT shows nondisplaced fracture of the maxillary spine, intact nasal bridge. ASSESSMENT AND PLAN: A 37-year-old female with multiple psychosocial problems and very noncompliant with dialysis, presented to the hospital after an episode of fall where she sustained a fracture of the maxillary spine without displacement. I have been consulted for dialysis management. 1. End-stage renal disease: Plan is for 3 hrs dialysis and take 3 kilo off on 2k bath today but doubt we tye be able to do given her severe anxiety and Moving around dangerously. Her noncompliance with dialysis has been very, very problematic. She has been explained about this multiple times. 2. Fracture of the maxillary spine. This is being managed conservatively as per advice of the maxillofacial surgeon. Results & Data Vital Signs (Past 12 Hours) Vital Signs Temp Pulse Pulse Pulse Resp BP BP 11/14/22 10:00 66 181/99 H 11/14/22 09:50 66 195/102 H 11/14/22 09:42 36.5 C 83 11/14/22 08:00 36.5 C 82 18 175/94 H 11/14/22 05:44 87 11/14/22 07:25 11/14/22 03:26 36.6 C 84 20 192/99 H 11/14/22 01:06 83 11/13/22 23:59 36.6 C 82 18 199/93 H 11/13/22 23:47 Pulse Ox O2 Del Method 11/14/22 10:00 11/14/22 09:50 11/14/22 09:42 11/14/22 08:00 96 Room Air 11/14/22 05:44 11/14/22 07:25 Room Air 11/14/22 03:26 95 Room Air 11/14/22 01:06 11/13/22 23:59 95 Room Air 11/13/22 23:47 Room Air
[2022-11-14 10:42] LABS: Hematocrit (blood only) 27.3 % (37.0-47.0); Hemoglobin 8.8 g/dl (12.0-16.0); Mean Corpuscular Hgb Conc 32.2 g/dL (32.0-36.0); Mean Corpuscular Volume 99.3 fL (80.0-100.0); Mean Platelet Volume 10.8 fL (9.4-12.4); Platelet Count 85 K/uL (130-400); RDW Coefficient of Variation 14.9 % (11.5-14.5); RDW Standard Deviation 54.2 fL (36.4-46.3); Red Blood Count 2.75 M/uL (4.20-5.40); White Blood Count 4.84 K/ul (4.8-10.8)
[2022-11-14 11:10] LABS: BUN Creatinine Ratio 4.6 (10-20); Calcium 9.7 mg/dl (8.6-10.3); Creatinine Clr Calc Pharmacy 7.8 ml/min; Est GFR (African American) 4.3 ml/min; Est GFR (Non-African American) 3.8 ml/min; Potassium 5.3 mmol/L (3.5-5.1)
[2022-11-14] MEDS: CINACALCET HCL 30 MG TAB PO SCH (15:39)
[2022-11-14] MEDS ORDERED: ACETAMINOPHEN 1,000 MG/100 ML VIAL IV STA (18:36)
[2022-11-14] MEDS ORDERED: LIDOCAINE 4% CREAM 15 GM TUBE EXT PRN (18:38)
--- NOTE | 2022-11-14 19:12 | Hospitalist Progress Note ---
Date of Service November 14, 2022 Assessment & Plan (1) Status post fall: Plan: Dizziness Possible related to noncompliance with dialysis. CT face showed nondisplaced fracture of the maxillary spine. Intact nasal bridge. CT head showed no acute intracranial hemorrhage, midline shift, or mass effect. No focal neuro deficit on exam fall precaution Nasal maxillary fracture CT face showed nondisplaced fracture of the maxillary spine. Intact nasal brid ge. Oral Maxillofacial on board-no treatment needed Continue pain control ESRD Non compliance with Dialysis Appreciate nephrology input Continue dialysis per Nephrology Discussed with Nephrology today Pt had HD done today Hypertension Continue carvedilol, amlodipine Monitor Anemia of chronic disease Hb at baseline No acute bleeding issues Monitor DVT Px scds, ambulatory CODE STATUS: Full Code Disposition Home Admission and Anticipated Discharge Date Admission Date: November 13, 2022 Subjective Pt was seen and examined for follow up Sitting in bed with no acute distress Pt said that she feels ok She was not able to keep her eyes opened during the encounter She had dialysis done today Denies any chest pain, palpitation, dizziness and SOB Review of Systems Review of Systems: All systems reviewed & are unremarkable except as noted in Subjective Physical Exam Physical Exam: General- No acute distress Head- atraumatic Eyes- PERRL, EOMI, ENT- oropharynx clear, crusting blood around the philtrum Neck- supple, no JVD Lungs- clear to auscultation Heart- regular rhythm; no murmur Abdomen- normal bowel sounds, soft, nontender Extremities- no calf tenderness, +edema Neuro- alert, oriented x 3; PERRL, EOMI; no facial palsy; no dysarthria Skin- warm & dry Results & Data Results & Data Vital Signs (Past 12 Hours) Vital Signs Temp Pulse Pulse Pulse Resp BP BP 11/14/22 16:05 36.7 C 83 20 166/84 H 11/14/22 15:18 80 11/14/22 13:29 36.5 C 79 163/87 H 11/14/22 13:00 80 158/96 H 11/14/22 12:30 70 156/39 H 11/14/22 12:00 91 H 151/117 H 11/14/22 11:30 79 166/93 H 11/14/22 11:00 75 132/101 H 11/14/22 10:30 66 179/106 H 11/14/22 10:00 66 181/99 H 11/14/22 09:50 66 195/102 H 11/14/22 09:42 36.5 C 83 11/14/22 08:00 36.5 C 82 18 175/94 H 11/14/22 07:25 Pulse Ox O2 Del Method 11/14/22 16:05 99 Room Air 11/14/22 15:18 11/14/22 13:29 11/14/22 13:00 11/14/22 12:30 11/14/22 12:00 11/14/22 11:30 11/14/22 11:00 11/14/22 10:30 11/14/22 10:00 11/14/22 09:50 11/14/22 09:42 11/14/22 08:00 96 Room Air 11/14/22 07:25 Room Air
[2022-11-14] MEDS: amLODIPine BESYLATE 5 MG TAB PO SCH (20:09)
[2022-11-14] MEDS: traZODone HCL 100 MG TAB PO SCH (20:09)
[2022-11-15] MEDS: carvediloL 6.25 MG TAB PO SCH ×2 (02:36→20:19)
[2022-11-15] MEDS: CALCIUM ACETATE 667 MG CAP/TAB PO SCH ×3 (08:16→17:45)
[2022-11-15] MEDS: FLUTICASONE/VILANTEROL 200/25MCG 14 PUFFS/INHALER INH SCH (08:17)
[2022-11-15] MEDS: PANTOprazole 40 MG TAB PO SCH (08:19)
[2022-11-15] MEDS: SERTRALINE HCL 50 MG TABLET PO SCH (08:20)
[2022-11-15] MEDS: GABAPENTIN 300 MG CAP PO SCH (08:23)
[2022-11-15] MEDS: NEPHROCAPS PO SCH (08:23)
[2022-11-15 09:48] LABS: BUN Creatinine Ratio 4.1 (10-20); Calcium 9.6 mg/dl (8.6-10.3); Creatinine Clr Calc Pharmacy 12.6 ml/min; Est GFR (African American) 7.8 ml/min; Est GFR (Non-African American) 6.8 ml/min; Potassium 4.7 mmol/L (3.5-5.1)
[2022-11-15 10:01] LABS: Hematocrit (blood only) 29.9 % (37.0-47.0); Hemoglobin 9.5 g/dl (12.0-16.0); Mean Corpuscular Hgb Conc 31.8 g/dL (32.0-36.0); Mean Corpuscular Volume 100.7 fL (80.0-100.0); Mean Platelet Volume 10.4 fL (9.4-12.4); Platelet Count 83 K/uL (130-400); RDW Coefficient of Variation 14.4 % (11.5-14.5); RDW Standard Deviation 53.4 fL (36.4-46.3); Red Blood Count 2.97 M/uL (4.20-5.40)
--- NOTE | 2022-11-15 10:28 | Nephrology Progress Note ---
Date of Service November 15, 2022 Assessment & Plan (1) End-stage renal disease on hemodialysis: Plan: 37-year-old female with multiple psychosocial problems and very noncompliant with dialysis presented to the hospital after a fall where she sustained a fracture of the maxillary spine without displacement. I have been consulted for dialysis management. 1. End-stage renal disease: pt with severe anxiety and Moving around dangerously. Her noncompliance with dialysis has been very, very problematic. She has been explained about this multiple times. >>tolerated treatment today 3h 15m w/ 3.5L UF 2. Fracture of the maxillary spine. This is being managed conservatively as per advice of the maxillofacial surgeon. Admission and Anticipated Discharge Date Admission Date: November 13, 2022 Subjective had just over 3.5 hrs yesterday with 3.9 L off; SBP still elevated today; ongoign anxienty on tx but agrees to treatment today; not dyspneic or swollen. Review of Systems Review of Systems: All systems reviewed & are unremarkable except as noted in Subjective Physical Exam Constitutional: well developed and well nourished Eyes: EOM intact bilaterally ENMT: Ears: no external ear abnormality Nose: no external nose abnormality Mouth: + dry oral mucous membranes Neck: no nuchal rigidity Respiratory: normal respiratory effort Auscultation: + diminished lung s ounds Cardiovascular: RRR, no murmur, no edema Gastrointestinal (Abdomen): Inspection/Auscultation: normal bowel sounds Percussion/Palpation: abdomen soft; abdomen nontender Musculoskeletal: Extremities: strength 5/5 throughout Skin: no rashes, warm and dry Trauma: + evidence of skin trauma, + laceration and + contusion Neurologic: sandy, fluent speech, no tremor Psychiatric: Orientation: oriented x 3 Speech: normal rate/rhythm/volume of speech Results & Data Vital Signs (Past 12 Hours) Vital Signs Temp Pulse Pulse Resp BP Pulse Ox O2 Del Method 11/15/22 08:35 81 11/15/22 07:45 36.6 C 80 18 167/80 H 99 Room Air 11/15/22 04:00 36.6 C 54 L 19 167/76 H 94 Room Air 11/15/22 01:02 Room Air 11/14/22 23:00 83 11/14/22 23:00 36.8 C 79 18 211/79 H 93 Room Air Laboratory Results 11/15/22 09:32 03/23/23 08:43
[2022-11-15] MEDS: ACETAMINOPHEN 325 MG TAB PO PRN ×2 (11:09→20:18)
[2022-11-15] MEDS ORDERED: SODIUM CHLORIDE 0.9% 1000ML 1,000 ML IV PRN (12:59)
[2022-11-15] MEDS: LORazepam 0.5 MG TAB PO PRN (13:47)
[2022-11-15] MEDS: hydrOXYzine HCl 25 MG TAB PO PRN (13:48)
[2022-11-15] MEDS: CINACALCET HCL 30 MG TAB PO SCH (17:44)
[2022-11-15] MEDS: amLODIPine BESYLATE 5 MG TAB PO SCH (20:19)
[2022-11-15] MEDS: traZODone HCL 100 MG TAB PO SCH (20:19)
--- NOTE | 2022-11-15 22:56 | Hospitalist Progress Note ---
Date of Service November 15, 2022 Assessment & Plan (1) Status post fall: Plan: Dizziness Possible related to noncompliance with dialysis. CT face showed nondisplaced fracture of the maxillary spine. Intact nasal bridge. CT head showed no acute intracranial hemorrhage, midline shift, or mass effect. No focal neuro deficit on exam fall precaution Nasal maxillary fracture CT face showed nondisplaced fracture of the maxillary spine. Intact nasal brid ge. Oral Maxillofacial on board-no treatment needed Continue pain control ESRD Non compliance with Dialysis Appreciate nephrology input Continue dialysis per Nephrology Discussed with Nephrology Pt had HD done today Hypertension Continue carvedilol, amlodipine Monitor Anemia of chronic disease Hb at baseline No acute bleeding issues Monitor DVT Px scds, ambulatory CODE STATUS: Full Code Disposition Home Admission and Anticipated Discharge Date Admission Date: November 13, 2022 Subjective Pt was seen and examined for follow up Sitting in bed with no acute distress Pt said that she does have some tenderness in her nose She had HD done today Review of Systems Review of Systems: All systems reviewed & are unremarkable except as noted in Subjective Physical Exam Physical Exam: General- No acute distress Head- atraumatic Eyes- PERRL, EOMI, ENT- oropharynx clear, crusting blood around the philtrum Neck- supple, no JVD Lungs- clear to auscultation Heart- regular rhythm; no murmur Abdomen- normal bowel sounds, soft, nontender Extremities- no calf tenderness, +edema Neuro- alert, oriented x 3; PERRL, EOMI; no facial palsy; no dysarthria Skin- warm & dry Results & Data Results & Data Vital Signs (Past 12 Hours) Vital Signs Temp Pulse Pulse Pulse Resp BP BP 11/15/22 19:00 37.0 C 84 19 228/72 H 11/15/22 17:34 37.1 C 86 86 16 137/87 11/15/22 17:20 36.9 C 84 171/91 H 11/15/22 17:00 79 148/88 H 11/15/22 16:30 83 144/90 H 11/15/22 16:00 82 170/105 H 11/15/22 15:30 80 165/70 H 11/15/22 15:21 78 11/15/22 15:00 79 186/95 H 11/15/22 14:30 80 192/91 H 11/15/22 14:03 80 163/77 H 11/15/22 13:56 37 C 80 11/15/22 11:43 37.1 C 82 16 162/89 H Pulse Ox O2 Del Method 11/15/22 19:00 97 Room Air 11/15/22 17:34 96 Room Air 11/15/22 17:20 11/15/22 17:00 11/15/22 16:30 11/15/22 16:00 11/15/22 15:30 11/15/22 15:21 11/15/22 15:00 11/15/22 14:30 11/15/22 14:03 11/15/22 13:56 11/15/22 11:43 94 Room Air
[2022-11-16] MEDS: ACETAMINOPHEN 325 MG TAB PO PRN (04:47)
[2022-11-16] MEDS ORDERED: HEPARIN SOD (PORCINE) 1000 UNIT/ML IV ONE (08:06)
[2022-11-16] MEDS ORDERED: EPOETIN ALFA 10,000 UNITS/ML VIAL IV ONE (08:06)
[2022-11-16] MEDS ORDERED: SODIUM CHLORIDE 0.9% 1000ML 1,000 ML IV PRN (08:06)
[2022-11-16] MEDS: FLUTICASONE/VILANTEROL 200/25MCG 14 PUFFS/INHALER INH SCH (08:21)
[2022-11-16] MEDS: SERTRALINE HCL 50 MG TABLET PO SCH (08:21)
[2022-11-16] MEDS: NEPHROCAPS PO SCH (08:22)
[2022-11-16] MEDS: carvediloL 6.25 MG TAB PO SCH (08:22)
[2022-11-16] MEDS: GABAPENTIN 300 MG CAP PO SCH (08:22)
[2022-11-16] MEDS: PANTOprazole 40 MG TAB PO SCH (08:22)
[2022-11-16] MEDS: LORazepam 0.5 MG TAB PO PRN (08:54)
[2022-11-16] MEDS: hydrOXYzine HCl 25 MG TAB PO PRN (08:54)
[2022-11-16 09:53] LABS: Hematocrit (blood only) 27.9 % (37.0-47.0); Hemoglobin 8.9 g/dl (12.0-16.0); Mean Corpuscular Hemoglobin 31.9 pg (25.0-34.0); Mean Corpuscular Hgb Conc 31.9 g/dL (32.0-36.0); Mean Platelet Volume 9.8 fL (9.4-12.4); Platelet Count 96 K/uL (130-400); RDW Coefficient of Variation 14.3 % (11.5-14.5); Red Blood Count 2.79 M/uL (4.20-5.40); White Blood Count 3.07 K/ul (4.8-10.8)
[2022-11-16] MEDS: CALCIUM ACETATE 667 MG CAP/TAB PO SCH ×2 (10:00→12:20)
[2022-11-16 10:12] LABS: BUN Creatinine Ratio 3.1 (10-20); Calcium 8.8 mg/dl (8.6-10.3); Creatinine Clr Calc Pharmacy 17.2 ml/min; Est GFR (African American) 11.3 ml/min; Est GFR (Non-African American) 9.7 ml/min; Potassium 3.8 mmol/L (3.5-5.1)
[2022-11-16] MEDS: HEPARIN SOD (PORCINE) 1000 UNIT/ML IV SCH ×2 (11:22→11:31)
--- NOTE | 2022-11-16 16:59 | Discharge Summary ---
Date of Service November 16, 2022 Admission HPI Per Admitting Provider DATE OF ADMISSION: 11/13/2022. CHIEF COMPLAINT: Fall and missed dialysis. HISTORY OF PRESENT ILLNESS: This is a 37-year-old female with past medical history significant for type 2 diabetes, currently not on any medication; peripheral neuropathy; end-stage renal disease on hemodialysis; hypertension; GERD; restless legs syndrome; history of chest pains; migraines; history of syncope; depression with anxiety; bipolar disorder, presents with fall and dizziness. The patient says she missed her dialysis 3 times because her car broke and she missed the van and today she was feeling dizzy and she was shopping when on the walkway, her leg got stuck and she fell down and fell on the face. No loss of consciousness. Was able to get up and she also has some knee bruises, but able to get up and finish her shopping. She had some bleeding from the nose and some bruise on the upper lip, that is the reason she came to the ER. Imaging study shows nondisplaced fracture of the maxillary spine, intact nasal bridge. ER talked to the maxillofacial surgery and they recommended observation. Currently, resting comfortably, hemodynamically stable. She has chest pain, some shortness of breath, some nausea. No abdominal pain. Complains of itching, requests some Benadryl. No blurred visions, no earache, no runny nose, no sore throat, no difficulty swallowing. Normal bowel movements. Admission Exam Per Admitting Provider GENERAL: The patient is obese, not in acute distress. VITAL SIGNS: Temperature 37.1, pulse 79, respiratory rate 20, blood pressure 168/99, and oxygen 100% on room air. HEENT: Pupils equal, round and reactive to light. Oral mucosa moist. NECK: No JVD, no neck masses. CARDIOVASCULAR: S1 and S2 heard. Regular rate and rhythm. No murmur, no gallop. RESPIRATORY SYSTEM: Normal AP diameter. No accessory muscle use. No wheezing, no crackles. ABDOMEN: Soft, bowel sounds present, nontender, no distention. CENTRAL NERVOUS SYSTEM: Alert and oriented. Nonfocal. EXTREMITIES: Mild pedal edema, no erythema seen. SKIN: Has bruising on the right upper lip region. Principal Diagnosis Status post fall: Dizziness Nasal maxillary fracture ESRD Hypertension Anemia of chronic disease Discharge Exam General- No acute distress Head- atraumatic Eyes- PERRL, EOMI, ENT- oropharynx clear, crusting blood around the philtrum Neck- supple, no JVD Lungs- clear to auscultation Heart- regular rhythm; no murmur Abdomen- normal bowel sounds, soft, nontender Extremities- no calf tenderness, +edema Neuro- alert, oriented x 3; PERRL, EOMI; no facial palsy; no dysarthria Skin- warm & dry Discharge Data Allergies Allergy/AdvReac Type Severity Reaction Status Date / Time cefaclor Allergy Intermediate Rash Verified 10/31/22 09:57 amoxicillin AdvReac Intermediate VOMITING Verified 10/31/22 09:57 clavulanic acid AdvReac Intermediate VOMITING Verified 10/31/22 09:57 Consultations 11/12/22 22:11 ED Decision to Admit Stat 11/13/22 08:00 Consult Nephrology Routine Consult Oromaxillofacial Surgery Routine Ordered Studies 11/12/22 18:41 CT face [CT facial bones wo con] Stat CT head/brain wo con Stat 11/12/22 18:44 CT neck [CT cervical spine wo con] Stat Laboratory Results WBC 3.07 K/ul (4.8-10.8) L 11/16/22 09:10 RBC 2.79 M/uL (4.20-5.40) L 11/16/22 09:10 Hgb 8.9 g/dl (12.0-16.0) L 11/16/22 09:10 Hct 27.9 % (37.0-47.0) L 11/16/22 09:10 MCV 100.0 fL (80.0-100.0) 11/16/22 09:10 MCH 31.9 pg (25.0-34.0) 11/16/22 09:10 MCHC 31.9 g/dL (32.0-36.0) L 11/16/22 09:10 RDW Std Deviation 52.0 fL (36.4-46.3) H 11/16/22 09:10 RDW Coeff of Laith 14.3 % (11.5-14.5) 11/16/22 09:10 Plt Count 96 K/uL (130-400) L 11/16/22 09:10 MPV 9.8 fL (9.4-12.4) 11/16/22 09:10 Immature Gran % (Auto) 0.3 % 11/13/22 07:17 Neut % (Auto) 67.3 % 11/13/22 07:17 Lymph % (Auto) 22.0 % 11/13/22 07:17 Kemper % (Auto) 7.0 % 11/13/22 07:17 Eos % (Auto) 2.9 % 11/13/22 07:17 Baso % (Auto) 0.5 % 11/13/22 07:17 Neut # (Auto) 4.13 K/uL (1.40-6.50) 11/13/22 07:17 Lymph # (Auto) 1.35 K/uL (1.2-3.4) 11/13/22 07:17 Kemper # (Auto) 0.43 K/uL (0.11-0.59) 11/13/22 07:17 Eos # (Auto) 0.18 K/uL (0-0.50) 11/13/22 07:17 Baso # (Auto) 0.03 K/uL (0-0.2) 11/13/22 07:17 Immature Gran # (Auto) 0.02 K/uL (0.01-0.20) 11/13/22 07:17 Absolute Nucleated RBC Cancelled 11/15/22 08:43 Nucleated RBC % (auto) Cancelled 11/15/22 08:43 Platelet Estimate Cancelled 11/15/22 08:43 Sodium 139 mmol/L (136-145) 11/16/22 09:10 Potassium 3.8 mmol/L (3.5-5.1) 11/16/22 09:10 Chloride 100 mmol/L (98-107) 11/16/22 09:10 Carbon Dioxide 28 mmol/L (21-32) 11/16/22 09:10 Anion Gap 11 (3-11) 11/16/22 09:10 BUN 16 mg/dl (6-23) 11/16/22 09:10 Creatinine 5.23 mg/dl (0.6-1.2) H* D 11/16/22 09:10 Est Cr Clr Drug Dosing 17.2 ml/min 11/16/22 09:10 Est GFR ( Amer) 11.3 ml/min 11/16/22 09:10 Est GFR (Non-Af Amer) 9.7 ml/min 11/16/22 09:10 BUN/Creatinine Ratio 3.1 (10-20) L 11/16/22 09:10 Glucose 128 mg/dl (70-99(Fasting)) H 11/16/22 09:10 Estimat Average Glucose 108 mg/dl 11/13/22 07:17 Hemoglobin A1c 5.4 % (4.5-5.6) 11/13/22 07:17 Calcium 8.8 mg/dl (8.6-10.3) 11/16/22 09:10 Phosphorus 5.7 mg/dl (2.5-4.9) H 11/12/22 19:24 Magnesium 2.9 mg/dl (1.7-2.4) H 11/13/22 07:17 Total Bilirubin 0.4 mg/dl (0.2-1.0) 11/12/22 19:24 AST 20 U/L (13-39) 11/12/22 19:24 ALT 15 U/L (7-52) 11/12/22 19:24 Alkaline Phosphatase 72 U/L (34-104) 11/12/22 19:24 Troponin I High Sens 47.7 pg/ml (0-14) H 11/13/22 07:17 Total Protein 7.0 gm/dl (6.0-8.3) 11/12/22 19:24 Albumin 3.8 gm/dl (3.4-5.0) 11/12/22 19:24 Globulin 3.2 gm/dl (2.5-4.0) 11/12/22 19:24 Albumin/Globulin Ratio 1.2 (0.9-2) 11/12/22 19:24 TSH 3.461 uIu/ml (0.300-4.500) 11/12/22 19:24 SARS-CoV-2, RNA, NAAT NEGATIVE (NEGATIVE) 11/12/22 20:[address] 11/12/22 18:41 Exam(s): CT FACIAL Without Contrast EXAM: CT Maxillofacial Without Intravenous Contrast CLINICAL HISTORY: Reason for exam: Nasal trauma. TECHNIQUE: Axial computed tomography images of the face without intravenous contrast. CTDI is 15.01 mGy and DLP is 495.97 mGy-cm. Automated exposure control was utilized for the study. A dose lowering technique was utilized adhering to the principles of ALARA. COMPARISON: No relevant prior studies available. FINDINGS: Bones/joints: Nondisplaced fracture of the maxillary spine. Soft tissues: Unremarkable. Orbits: Unremarkable. Sinuses: Unremarkable. No air-fluid levels. Nasal cavity/septum: Intact nasal septum and nasal bridge. IMPRESSION: 1. Nondisplaced fracture of the maxillary spine. 2. Intact nasal bridge. Electronically signed by: Nando Rodrigez MD 11/12/22 20:[address] 11/12/22 18:41 Exam(s): CT HEAD Without Contrast EXAM: CT Head Without Intravenous Contrast CLINICAL HISTORY: Reason for exam: Dizzy, fall, facial trauma. TECHNIQUE: Axial computed tomography images of the head/brain without intravenous contrast. CTDI is 37 mGy and DLP is 537.48 mGy-cm. Automated exposure control was utilized for the study. A dose lowering technique was utilized adhering to the principles of ALARA. COMPARISON: No relevant prior studies available. FINDINGS: No acute intracranial hemorrhage. No midline shift or mass effect. The territorial valadez-white matter differentiation is maintained throughout. The ventricles and sulci are commensurate with age. The visualized orbits appear grossly unremarkable. The calvarium is intact. The visualized paranasal sinuses and mastoid air cells are grossly clear. IMPRESSION: No acute intracranial hemorrhage, midline shift, or mass effect. Electronically signed by: Nando Rodrigez MD 11/12/22 20:[address] 11/12/22 18:44 Exam(s): CT C SPINE EXAM: CT Cervical Spine Without Intravenous Contrast CLINICAL HISTORY: Reason for exam: Dizziness, fall, facial trauma. TECHNIQUE: Axial computed tomography images of the cervical spine without intravenous contrast. CTDI is 15.01 mGy and DLP is 495.97 mGy-cm. Automated exposure control was utilized for the study. A dose lowering technique was utilized adhering to the principles of ALARA. COMPARISON: No relevant prior studies available. FINDINGS: The vertebral body heights are maintained. There is no spondylolisthesis. The craniocervical junction is intact. The atlanto-dens interval is maintained. The dens is intact. The intervertebral disc spaces are preserved. There is no spinal canal or neural foraminal stenosis. Small bilateral pleural effusions. IMPRESSION: No acute fracture or subluxation of the cervical spine. Electronically signed by: Nando Rodrigez MD 11/12/22 20:08 PM Chest X-Ray 11/12/22 20:12 XR chest 1V portable HISTORY: 37 years-old Female sob acute shortness of breath COMPARISON: 10/31/2022 TECHNIQUE: AP view of the chest FINDINGS: Cardiac silhouette is enlarged. There is no pneumothorax, pleural effusion or overt pulmonary edema. Pulmonary vascular congestion is suggested. Vascular stent graft of the right superior mediastinum. Bones appear grossly intact. IMPRESSION: Cardiomegaly with interstitial coarsening which may be secondary to patient body habitus/technique versus pulmonary vascular congestion. ACT 112: Negative or not required by law. The above report was generated using voice recognition software. It may contain grammatical, syntax or spelling errors. Electronically signed by: Cristhian Copeland M.D. 11/13/2022 7:35 AM Hospital Course (1) Status post fall: Dizziness Possible related to noncompliance with dialysis. CT face showed nondisplaced fracture of the maxillary spine. Intact nasal bridge. CT head showed no acute intracranial hemorrhage, midline shift, or mass effect. No focal neuro deficit on exam fall precaution Nasal maxillary fracture CT face showed nondisplaced fracture of the maxillary spine. Intact nasal bridge. Oral Maxillofacial on board-no treatment needed Continue pain control ESRD Non compliance with Dialysis Appreciate nephrology input Continue dialysis per Nephrology Discussed with Nephrology Pt had HD done today Hypertension Continue carvedilol, amlodipine Monitor Anemia of chronic disease Hb at baseline No acute bleeding issues Monitor DVT Px scds, ambulatory CODE STATUS: Full Code Disposition Home Total Time Total Time Spent Total Time Spent (In Minutes): 35 minutes Discharge Plan Discharge Items Patient Disposition: Home - Self-Care Reason For Visit: DIZZY Discharge Diagnosis: Status post fall: Dizziness Nasal maxillary fracture ESRD Hypertension Anemia of chronic disease Condition on Discharge: Fair Activity: Resume your previous activity Non-emergency contact: Primary Care Provider and Recording [employer] Intern Call non-emergency contact if: you have any medication questions Follow-up/Referrals: Adolph Aldrigde MD [Primary Care Provider] - (Date & Time 11/22/2022 10:20 AM Provider Adolph Aldridge MD [facility] ) Diet: Dialysis Renal Addtl Attending Provider Instructions: Follow up with your primary care provider 11/22/2022 @ 10:20 AM Adolph Aldridge MD [facility] Follow up with your nephrology Follow up with [facility] vascular surgery in [place] Your next dialysis is scheduled for Saturday Seek immediate medical attention if your symptoms reoccur or worsen Please take all medications as instructed on discharge list below. Please call if you have any questions or problems. You can reach a [facility] hospitalist on duty at [facility] 24 hours a day by calling [phone] Pending Studies at Discharge: No Stand-Alone Forms: My [facility], Smoking Cessation Medications and DC Order Prescriptions: Continued calcium acetate(phosphat bind) 667 mg capsule 2,001 mg PO TIDM Rx Instructions: 3 tabs with meals sertraline 100 mg tablet 150 mg PO QAM Rx Instructions: 1 & 1/2 TABLET DOSE hydroxyzine HCl 25 mg tablet 25 mg PO Q6 PRN (Reason: Anxiety) albuterol sulfate 90 mcg/actuation HFA aerosol inhaler 2 puff INHALATION QID PRN (Reason: Shortness Of Breath) amlodipine 10 mg Tablet 10 mg PO HS Renal Vitamin 0.8 mg Tablet 1 tab PO QAM lorazepam 0.5 mg tablet 0.5 mg PO Q8 PRN (Reason: anxiety and before dialysis) medroxyprogesterone [Depo-Provera] 150 mg/mL suspension 150 mg IM Q90D cinacalcet [Sensipar] 30 mg Tablet 60 mg PO QDD Rx Instructions: Takes with evening meal gabapentin [Neurontin] 400 mg capsule 400 mg PO AMHS albuterol sulfate 2.5 mg /3 mL (0.083 %) Solution For Nebulization 2.5 mg INHALATION Q4H PRN (Reason: Wheezing) ondansetron HCl 4 mg Tablet 4 mg PO Q6H PRN (Reason: Nausea) trazodone 100 mg tablet 200 mg PO HS fluticasone propionate [Flonase Allergy Relief] 50 mcg/actuation [place],Suspension 2 spray INTRANASAL DAILY PRN (Reason: Congestion) Rx Instructions: administer into each nostril dicyclomine 10 mg capsule 10 mg PO QID PRN (Reason: cyst) omeprazole 20 mg capsule,delayed release(DR/EC) 20 mg PO QAM Dulera 200-5 mcg/actuation HFA aerosol inhaler 2 puff INHALATION BID Changed carvedilol 3.125 mg tablet 6.25 mg PO BID 30 Days Qty: 0 0RF Discharge Orders: Discharge Order (Routine); Ordered 11/16/22 Ordered By: Ambreen Martinez/Other Patient Handouts: Hemodialysis Admission Data Admit Date/Time: 11/13/22 01:32 Attending Provider: Ambreen Lutz Admit Provider: Daquan Morgan Primary Care Provider: Adolph Aldridge Other Providers: Daquan Morgan ; Leah Nieves ; Jameel Wilson ; Cornelia Siegel ; Pato Saucedo ; Rishi Morel ; Jackie Alarcon ; Salvador Giles Valentine I. Other Interventions: Discharge Summary Assessment (RN) Last Done: 11/16/22 16:57
--- NOTE | 2022-11-16 17:42 | Nephrology Progress Note ---
Date of Service November 16, 2022 Assessment & Plan (1) End-stage renal disease on hemodialysis: Plan: 37-year-old female with multiple psychosocial problems and very noncompliant with dialysis presented to the hospital after a fall where she sustained a fracture of the maxillary spine without displacement. I have been consulted for dialysis management. 1. End-stage renal disease: pt with severe anxiety and Moving around dangerously. Her noncompliance with dialysis has been very, very problematic. She has been explained about this multiple times. >>tolerated treatment today 2h 30m w/ 2L UF >>we will need to get her VA appt rescheduled at [facility] [place] [place]; I called her OP dialysis unit so that they can work on that and update vascular appropriatley about any further AVF pain pt has 2. Fracture of the maxillary spine. This is being managed conservatively as per advice of the maxillofacial surgeon. Admission and Anticipated Discharge Date Admission Date: November 13, 2022 Subjective completed 2.5 hrs of tx then stopped d/t access arm pain whcih she has had in past; missed vasc access appt whiel she was in house. also c/o mouth pain. no sob. no edema. Review of Systems Review of Systems: All systems reviewed & are unremarkable except as noted in Subjective Physical Exam Constitutional: well developed and well nourished Eyes: EOM intact bilaterally ENMT: Ears: no external ear abnormality Nose: no external nose abnormality Neck: no nuchal rigidity Respiratory: normal respiratory effort Auscultation: + diminished lung sounds Cardiovascular: RRR, no murmur, no edema Extremities: + AV fistula (+t/b; no induration) Gastrointestinal (Abdomen): Inspection/Auscultation: normal bowel sounds Percussion/Palpation: abdomen soft; abdomen nontender Musculoskeletal: Extremities: strength 5/5 throughout Skin: no rashes, warm and dry Trauma: + evidence of skin trauma, + laceration and + contusion Psychiatric: Orientation: oriented x 3 Speech: normal rate/rhythm/volume of speech Results & Data Vital Signs (Past 12 Hours) Vital Signs Temp Pulse Pulse Pulse Resp BP BP 11/16/22 16:57 37.4 C 84 74 20 143/86 H 11/16/22 16:15 83 11/16/22 16:07 37.4 C 74 20 143/86 H 11/16/22 11:47 36.6 C 74 143/79 H 11/16/22 12:15 78 18 121/75 11/16/22 11:30 74 139/81 11/16/22 11:00 77 123/74 11/16/22 10:30 74 155/94 H 11/16/22 10:00 74 178/84 H 11/16/22 09:30 69 120/81 11/16/22 09:10 72 147/87 H 11/16/22 09:01 37 C 78 11/16/22 07:58 36.9 C 82 21 11/16/22 07:23 80 BP Pulse Ox O2 Del Method 11/16/22 16:57 125/76 98 11/16/22 16:15 11/16/22 16:07 98 Room Air 11/16/22 11:47 11/16/22 12:15 95 Room Air 11/16/22 11:30 11/16/22 11:00 11/16/22 10:30 11/16/22 10:00 11/16/22 09:30 11/16/22 09:10 11/16/22 09:01 11/16/22 07:58 125/76 96 Room Air 11/16/22 07:23 Laboratory Results 11/16/22 09:10 11/16/22 09:10
== END 2022-11-16 17:10 | disposition home or self-care (01) | DRG 157 ==
LOC: ED 18:19 → SUATTDRO 11-13 01:32 → EDINP 11-13 01:32 → 2N 11-13 02:28

== ENCOUNTER 2023-01-07 20:44 | Inpatient (IN) ==
[2023-01-07] MEDS ORDERED: NITROGLYCERIN SL 0.4 MG/TAB TAB SL STA (21:52)
--- NOTE | 2023-01-07 22:12 | Emergency Department Note ---
Impression & Plan Hypertensive emergency ADMIT ED Provider Note HPI: The patient is a 37-year-old female who is well-known to this emergency department, history of end-stage renal disease currently on dialysis, history of medical noncompliance and noncompliance with her dialysis sessions, presents the ED today stating that she feels generally weak and nauseated. Patient states that she missed her dialysis session on Saturday and on Saturday (today) because she did not set the alarm on her phone. Patient states that she has had some chest discomfort in addition to her weakness and nausea. On arrival here to the ED the patient is hypertensive at 252/150, she is otherwise hemodynamically stable and saturating well on room air. She does complain of chest pain on arrival. ROS: - Per HPI *Outpatient medications and allergy history reviewed. *Pertinent external medical records reviewed. PE: General: Alert, obese, mild distress secondary to nausea HEENT: Normocephalic, trachea midline Eyes: Extraocular eye movement is intact, no scleral erythema Pulmonary: Clear to auscultation bilaterally, no wheezing Cardio: Regular rate and rhythm GI: Abdomen is soft to palpation : No suprapubic tenderness MSK: No evidence of trauma or malformation of the extremities, no edema Skin: No evidence of rash Neuro: Alert, no focal deficits Psychiatric: Cooperative satellite project site monitor: (As interpreted by myself): - An order was placed for continuous cardiac monitoring - Patient was noted to be in sinus rhythm with a rate of 90 EKG: (As interpreted by myself): Rate: 91 Rhythm: Normal sinus rhythm Intervals: QTc 516 ms, otherwise within normal limits ST changes: No ST elevation Time: 2201 Interventions provided in ED: -Sublingual nitroglycerin, IV labetalol Differential Diagnosis: Hypertensive emergency secondary to medical noncompliance/missed dialysis, acute coronary syndrome, musculoskeletal chest discomfort, acute pulmonary edema, amongst other potential pathologies. Medical Decision Making: The patient is a 37-year-old female who is well-known to this emergency department who presented with multiple complaints related to having missed dialysis her last 2 sessions. Patient is hypertensive on arrival, likely consistent with state of fluid overload, she is saturating well on room air, complains of generalized weakness and chest discomfort. Patient was given sublingual nitroglycerin, once IV was established she was given dose of IV labetalol. EKG reviewed does not show any acute ischemic changes, chest x-ray per my interpretation does not show any acute change from previous done just 5 days ago. Patient is saturating well on room air on arrival. Patient was markedly hypertensive on arrival, she was given sublingual nitroglycerin and IV labetalol with improvement in her blood pressure but diastolic pressures did remain high. Troponin is elevated greater than 90, potassium is within normal limits and creatinine is elevated at 13. Given the patient's chest discomfort, elevated troponin, and hypertensive emergency on arrival, I did discuss admission with the patient she states that she would like to be admitted to arrange for her to get dialyzed tomorrow as opposed to waiting for Saturday. Given that she has missed her last 2 sessions I think this is reasonable. Case was discussed with the on-call hospitalist for [facility], Dr. Morgan, patient was placed for admission in stable/improved condition for further management. Consultants: -Hospitalist, Dr. Morgan Disposition discussion held by myself with: -Patient * CRITICAL CARE TIME: (40) minutes -Stabilization of patient with hypertensive emergency in the setting of end- stage renal disease and having missed multiple sessions of dialysis recently, time spent at the bedside, interpretation of diagnostic studies, discussion with other physicians and arrangement of admission Diagnosis: 1. Hypertensive emergency, acute 2. Medical noncompliance/missed dialysis 3. Elevated high-sensitivity troponin level 4. End-stage renal disease patient, on dialysis Disposition: Admission Adolph Kelley DO Emergency Medicine Past Med/Surg History Medical History Anemia due to end stage renal disease Anemia of chronic disease Anxiety Anxiety and depression Asthma "BEEN A WHILE" SINCE USING LAST RESCUE INHALER AVF (arteriovenous fistula) bilt---currently using right for dialysis Bipolar disorder CKD (chronic kidney disease) stage V requiring chronic dialysis Depression Depression with anxiety Dialysis patient SATURDAY/SAT/SATURDAY AT [facility] DM2 (diabetes mellitus, type 2) DM2 (diabetes mellitus, type 2) DVT prophylaxis ESRD (end stage renal disease) on dialysis ESRD (end stage renal disease) on dialysis Fistula right arm (currently being used) and left arm FSGS (focal segmental glomerulosclerosis) DX INITIALLY 2012 (CAUSING ESRD 2012) GERD (gastroesophageal reflux disease) History of abnormal cervical Papanicolaou smear HTN (hypertension) Peripheral neuropathy Prolonged QT interval Restless leg syndrome Status post fall Symptomatic anemia Tobacco abuse Surgical History H/O eye surgery LASER SURGERY LEFT H/O hernia repair ABDOMINAL WALL H/O knee surgery LEFT KNEE X 2 H/O tubal ligation H/O: X 2 History of cardiac cath 2017 NO STENTS History of cholecystectomy History of colonoscopy History of surgery (~09/09/20) perm cath replacement History of surgery left arm d/t clot in arm from AV fistula use @ [facility] History of tooth extraction three TOOTH Kidney transplant recipient 2014 AT [facility] S/P arteriovenous (AV) fistula creation right arm Family History Grandmother Hx of CABG Mother Diabetes Father Crohn's disease Grandfather (Maternal) Diabetes Uncle Diabetes Grandmother (Maternal) Family history of reaction to anesthesia difficulty waking with colonoscopy Social History Smoking Status: Current every day smoker Tobacco Type: Cigarettes Cigarettes Per Day: half a pack-she denies; Second Hand Exposure: Yes; Do You Dip or Chew Tobacco: No; Hx Alcohol Use: Yes Alcohol type: hard liquor Alcohol Intake Frequency Comment: q3 months Hx Substance Use: Yes Preferred Language: Comoran Communication Ability: Effective 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 Beliefs That Will Affect Care: None marital status: Single Current Living Situation: Family Current Living Situation Comment: Lives with fiance and kids How many Children do You have: 3 Feels Safe at Home: Yes Assistive Devices: None Allergies Allergies Allergy/AdvReac Type Severity Reaction Status Date / Time cefaclor Allergy Intermediate Rash Verified 01/07/23 22:00 Cephalosporins Allergy Intermediate Rash Verified 01/07/23 22:00 amoxicillin AdvReac Intermediate VOMITING Verified 01/07/23 22:00 clavulanic acid AdvReac Intermediate VOMITING Verified 01/07/23 22:00 Home Meds Home Medications Medication Instructions Recorded Confirmed hydroxyzine HCl 25 mg tablet 25 mg PO Q6 PRN Anxiety 04/21/20 01/07/23 calcium acetate(phosphat bind) 667 2,001 mg PO TIDM 06/22/20 01/07/23 mg capsule albuterol sulfate 90 mcg/actuation 2 puff inhalation QID PRN 08/01/20 01/07/23 aerosol inhaler Shortness Of Breath sertraline 100 mg tablet 150 mg PO QAM 08/02/20 01/07/23 amlodipine 10 mg tablet 10 mg PO HS 08/10/20 01/07/23 vitamin B complex-vitamin C-folic 1 tab PO QAM 08/10/20 01/07/23 acid 0.8 mg tablet (Renal Vitamin) cinacalcet 30 mg tablet (Sensipar) 60 mg PO QDD 03/06/21 01/07/23 lorazepam 0.5 mg tablet 0.5 mg PO Q8 PRN anxiety and 03/06/21 01/07/23 before dialysis medroxyprogesterone 150 mg/mL 150 mg IM Q90D 03/06/21 01/07/23 intramuscular suspension (Depo-Provera) gabapentin 400 mg capsule 400 mg PO AMHS 06/27/21 01/07/23 (Neurontin) dicyclomine 10 mg capsule 10 mg PO QID PRN .. 01/19/22 01/07/23 mometasone-formoterol HFA 200 2 puff inhalation BID 01/19/22 01/07/23 mcg-5 mcg/actuation aerosol inhaler (Dulera) omeprazole 20 mg capsule,delayed 20 mg PO QAM 01/19/22 01/07/23 release albuterol sulfate 2.5 mg/3 mL 2.5 mg inhalation Q4H PRN Wheezing 09/19/2201/07 (0.083 %) solution for nebulization fluticasone propionate 50 2 spray intranasal DAILY PRN 09/19/22 01/07/23 mcg/actuation nasal Congestion spray,suspension (Flonase Allergy Relief) ondansetron HCl 4 mg tablet 4 mg PO Q6H PRN Nausea 09/19/22 01/07/23 trazodone 100 mg tablet 200 mg PO HS 09/19/22 01/07/23 carvedilol 6.25 mg tablet (Coreg) 6.25 mg PO BID 01/02/23 01/07/23 varenicline 0.5 mg (11)-1 mg (42) 1 ea PO DIRECTED 01/02/23 01/07/23 tablets in a dose pack Results & Data (ED) Vital Signs Vital Signs - 24 hr 01/07/23:01 01/07/23 22:15 01/07/23 22:35 Temperature 36.6 C Temperature Source Oral Pulse Rate 68 90 94 H Respiratory Rate 16 15 22 Respiratory Effort / Characteristics Non-Labored Respiratory Depth Normal Blood Pressure 252/150 H 173/105 H 185/127 H Blood Pressure Mean 184 127 146 Pulse Oximetry 98 96 99 Oxygen Delivery Method Room Air Room Air Room Air Sepsis Recent Fever Within 48 Hours No Sepsis New/Unexplained Change in Mental Status No Sepsis Action Taken by Nursing No Action Required 01/07/23 23:00 01/07/23 23:11 01/07/23 23:20 Temperature Temperature Source Pulse Rate 95 H 97 H 97 H Respiratory Rate 24 20 20 Respiratory Effort / Characteristics Respiratory Depth Blood Pressure 174/126 H 170/133 H 161/132 H Blood Pressure Mean 142 145 141 Pulse Oximetry 98 96 94 Oxygen Delivery Method Room Air Room Air Room Air Sepsis Recent Fever Within 48 Hours Sepsis New/Unexplained Change in Mental Status Sepsis Action Taken by Nursing 01/07/23 23:31 01/08/23 00:22 01/08/23 00:30 Temperature Temperature Source Pulse Rate 87 89 89 Respiratory Rate 12 12 18 Respiratory Effort / Characteristics Respiratory Depth Blood Pressure 153/107 H 172/101 H 153/124 H Blood Pressure Mean 122 124 133 Pulse Oximetry 94 94 95 Oxygen Delivery Method Room Air Room Air Room Air Sepsis Recent Fever Within 48 Hours Sepsis New/Unexplained Change in Mental Status Sepsis Action Taken by Nursing Laboratory Data 01/07/23 22:28 01/07/23 22:28 Lab Results 01/07/23 01/07/23 01/07/23 Range/Units 22:28 22:28 22:28 WBC 7.49 (4.8-10.8) K/ul RBC 2.76 L (4.20-5.40) M/uL Hgb 8.5 L (12.0-16.0) g/dl Hct 26.4 L (37.0-47.0) % MCV 95.7 (80.0-100.0) fL MCH 30.8 (25.0-34.0) pg MCHC 32.2 (32.0-36.0) g/dL RDW Std Deviation 49.9 H (36.4-46.3) fL RDW Coeff of Laith 14.7 H (11.5-14.5) % Plt Count 141 (130-400) K/uL MPV 10.2 (9.4-12.4) fL Immature Gran % (Auto) 0.1 % Neut % (Auto) 77.6 % Lymph % (Auto) 14.3 % [place] % (Auto) 5.3 % Eos % (Auto) 2.3 % Baso % (Auto) 0.4 % Neut # (Auto) 5.81 (1.40-6.50) K/uL Lymph # (Auto) 1.07 L (1.2-3.4) K/uL [place] # (Auto) 0.40 (0.11-0.59) K/uL Eos # (Auto) 0.17 (0-0.50) K/uL Baso # (Auto) 0.03 (0-0.2) K/uL Immature Gran # (Auto) 0.01 (0.01-0.20) K/uL PT 11.3 (9.0-12.0) Seconds INR 1.0 (0.9-1.1) Sodium 136 (136-145) mmol/L Potassium 5.0 (3.5-5.1) mmol/L Chloride 95 L (98-107) mmol/L Carbon Dioxide 24 (21-32) mmol/L Anion Gap 17 H (3-11) BUN 68 H (6-23) mg/dl Creatinine 13.85 H* (0.6-1.2) mg/dl Est Cr Clr Drug Dosing 6.4 ml/min Est GFR ( Amer) 3.5 ml/min Est GFR (Non-Af Amer) 3.0 ml/min BUN/Creatinine Ratio 4.9 L (10-20) Glucose 118 H (70-99(Fasting)) mg/dl Calcium 9.6 (8.6-10.3) mg/dl Total Bilirubin 0.5 (0.2-1.0) mg/dl AST 18 (13-39) U/L ALT 16 (7-52) U/L Alkaline Phosphatase 63 (34-104) U/L Troponin I High Sens 97.0 H* (0-14) pg/ml Total Protein 6.6 (6.0-8.3) gm/dl Albumin 3.9 (3.4-5.0) gm/dl Globulin 2.7 (2.5-4.0) gm/dl Albumin/Globulin Ratio 1.4 (0.9-2) Lipase 41 (11-82) U/L SARS-CoV-2, RNA, NAAT (NEGATIVE) 01/07/23 Range/Units 23:20 WBC (4.8-10.8) K/ul RBC (4.20-5.40) M/uL Hgb (12.0-16.0) g/dl Hct (37.0-47.0) % MCV (80.0-100.0) fL MCH (25.0-34.0) pg MCHC (32.0-36.0) g/dL RDW Std Deviation (36.4-46.3) fL RDW Coeff of Laith (11.5-14.5) % Plt Count (130-400) K/uL MPV (9.4-12.4) fL Immature Gran % (Auto) % Neut % (Auto) % Lymph % (Auto) % Burnet % (Auto) % Eos % (Auto) % Baso % (Auto) % Neut # (Auto) (1.40-6.50) K/uL Lymph # (Auto) (1.2-3.4) K/uL [place] # (Auto) (0.11-0.59) K/uL Eos # (Auto) (0-0.50) K/uL Baso # (Auto) (0-0.2) K/uL Immature Gran # (Auto) (0.01-0.20) K/uL PT (9.0-12.0) Seconds INR (0.9-1.1) Sodium (136-145) mmol/L Potassium (3.5-5.1) mmol/L Chloride (98-107) mmol/L Carbon Dioxide (21-32) mmol/L Anion Gap (3-11) BUN (6-23) mg/dl Creatinine (0.6-1.2) mg/dl Est Cr Clr Drug Dosing ml/min Est GFR ( Amer) ml/min Est GFR (Non-Af Amer) ml/min BUN/Creatinine Ratio (10-20) Glucose (70-99(Fasting)) mg/dl Calcium (8.6-10.3) mg/dl Total Bilirubin (0.2-1.0) mg/dl AST (13-39) U/L ALT (7-52) U/L Alkaline Phosphatase (34-104) U/L Troponin I High Sens (0-14) pg/ml Total Protein (6.0-8.3) gm/dl Albumin (3.4-5.0) gm/dl Globulin (2.5-4.0) gm/dl Albumin/Globulin Ratio (0.9-2) Lipase (11-82) U/L SARS-CoV-2, RNA, NAAT NEGATIVE (NEGATIVE) Administered Medications Discontinued Medications Labetalol HCl (Labetalol Hcl Iv 5 Mg/Ml 20ml) 10 mg IV NOW STA Stop: 01/07/23 23:07 Last Admin: 01/07/23 23:11 Dose: 10 mg Documented By: MORALES Co-signed By: FRED Lorazepam (Lorazepam 0.5 Mg Tab) 0.5 mg PO NOW STA Stop: 01/08/23 00:08 Last Admin: 01/08/23 00:22 Dose: 0.5 mg Documented By: MORALES Nitroglycerin (Nitroglycerin Sl 0.4 Mg/Tab Tab) 0.4 mg SL NOW STA Stop: 01/07/23 21:53 Last Admin: 01/07/23 22:06 Dose: 0.4 mg Documented By: MORALES Ondansetron HCl (Ondansetron Inj 2 Mg/Ml 2 Ml Vial) 4 mg IV NOW STA Stop: 01/07/23 22:31 Last Admin: 01/07/23 22:35 Dose: 4 mg Documented By: MORALES Discharge Plan Visit Data Chief Complaint: Cardiac Assessment Stated Complaint: CHEST PAIN X3 WEEKS ED Provider: Adolph Kelley Discharge Problem: Hypertensive emergency Forms Stand Alone Forms: [facility] Prescriptions Prescriptions: No Action calcium acetate(phosphat bind) 667 mg capsule 2,001 mg PO TIDM Rx Instructions: 3 tabs with meals sertraline 100 mg tablet 150 mg PO QAM Rx Instructions: 1 & 1/2 TABLET DOSE hydroxyzine HCl 25 mg tablet 25 mg PO Q6 PRN (Reason: Anxiety) albuterol sulfate 90 mcg/actuation HFA aerosol inhaler 2 puff INHALATION QID PRN (Reason: Shortness Of Breath) amlodipine 10 mg Tablet 10 mg PO HS Renal Vitamin 0.8 mg Tablet 1 tab PO QAM lorazepam 0.5 mg tablet 0.5 mg PO Q8 PRN (Reason: anxiety and before dialysis) medroxyprogesterone [Depo-Provera] 150 mg/mL suspension 150 mg IM Q90D Rx Instructions: HAD IN OCTOBER 2022 cinacalcet [Sensipar] 30 mg Tablet 60 mg PO QDD Rx Instructions: Takes with evening meal gabapentin [Neurontin] 400 mg capsule 400 mg PO AMHS albuterol sulfate 2.5 mg /3 mL (0.083 %) Solution For Nebulization 2.5 mg INHALATION Q4H PRN (Reason: Wheezing) ondansetron HCl 4 mg Tablet 4 mg PO Q6H PRN (Reason: Nausea) trazodone 100 mg tablet 200 mg PO HS fluticasone propionate [Flonase Allergy Relief] 50 mcg/actuation [place],Suspension 2 spray INTRANASAL DAILY PRN (Reason: Congestion) Rx Instructions: administer into each nostril dicyclomine 10 mg capsule 10 mg PO QID PRN (Reason: ..) omeprazole 20 mg capsule,delayed release(DR/EC) 20 mg PO QAM Dulera 200-5 mcg/actuation HFA aerosol inhaler 2 puff INHALATION BID carvedilol [Coreg] 6.25 mg Tablet 6.25 mg PO BID Rx Instructions: must administer with a meal/food varenicline 0.5 mg (11)- 1 mg (42) tablets,dose pack 1 ea PO DIRECTED Rx Instructions: PER PT "DID NOT START YET". Referrals Referrals: Adolph Aldridge MD [Primary Care Provider] -
[2023-01-07] MEDS ORDERED: ONDANSETRON INJ 2 MG/ML 2 ML VIAL IV STA (22:30)
[2023-01-07 22:42] LABS: Basophils # (auto) 0.03 K/uL (0-0.2); Basophils % (auto) 0.4 %; Eosinophils # (auto) 0.17 K/uL (0-0.50); Eosinophils % (auto) 2.3 %; Hematocrit (blood only) 26.4 % (37.0-47.0); Hemoglobin 8.5 g/dl (12.0-16.0); Immature Granulocytes # (auto) 0.01 K/uL (0.01-0.20); Immature Granulocytes % (auto) 0.1 %; Lymphocytes # (auto) 1.07 K/uL (1.2-3.4); Lymphocytes % (auto) 14.3 %; Mean Corpuscular Hemoglobin 30.8 pg (25.0-34.0); Mean Corpuscular Hgb Conc 32.2 g/dL (32.0-36.0); Mean Corpuscular Volume 95.7 fL (80.0-100.0); Mean Platelet Volume 10.2 fL (9.4-12.4); Monocytes % (auto) 5.3 %; Neutrophils # (auto) 5.81 K/uL (1.40-6.50); Neutrophils % (auto) 77.6 %; Platelet Count 141 K/uL (130-400); RDW Coefficient of Variation 14.7 % (11.5-14.5); RDW Standard Deviation 49.9 fL (36.4-46.3); Red Blood Count 2.76 M/uL (4.20-5.40); White Blood Count 7.49 K/ul (4.8-10.8)
[2023-01-07 23:02] LABS: Albumin Globulin Ratio 1.4 (0.9-2); Albumin Level 3.9 gm/dl (3.4-5.0); BUN Creatinine Ratio 4.9 (10-20); Bilirubin,Total 0.5 mg/dl (0.2-1.0); Calcium 9.6 mg/dl (8.6-10.3); Creatinine Clr Calc Pharmacy 6.4 ml/min; Est GFR (African American) 3.5 ml/min; Globulin 2.7 gm/dl (2.5-4.0); Total Protein 6.6 gm/dl (6.0-8.3)
[2023-01-07] MEDS ORDERED: LABETALOL HCL IV 5 MG/ML 20ML IV STA (23:06)
[2023-01-07 23:22] LABS: Prothrombin Time 11.3 Seconds (9.0-12.0)
[2023-01-08] MEDS ORDERED: LORazepam 0.5 MG TAB PO STA (00:07)
[2023-01-08] MEDS ORDERED: FLUTICASONE PROPIONATE NA SPR 16 GM BTL PRN (01:38)
[2023-01-08] MEDS ORDERED: DICYCLOMINE HCL 10 MG CAP PO PRN (01:38)
[2023-01-08] MEDS ORDERED: ALBUTEROL 0.083% NEBU SOLN 3 ML VIAL INH PRN (01:38)
[2023-01-08] MEDS ORDERED: ALBUTEROL HFA 8 GM INHALER INH PRN (01:38)
[2023-01-08] MEDS ORDERED: NITROGLYCERIN SL 0.4 MG/TAB TAB SL PRN (01:38)
[2023-01-08] MEDS: LABETALOL HCL IV 5 MG/ML 20ML IV PRN ×2 (02:12→14:01)
[2023-01-08] MEDS: NITROGLYCERIN 2% OINTMENT 30GM TUBE EXT SCH ×4 (02:12→20:15)
--- NOTE | 2023-01-08 03:54 | History and Physical Report ---
DATE OF ADMISSION: 01/08/2023. CHIEF COMPLAINT: Missed dialysis, chest pain, hypertensive urgency. HISTORY OF PRESENT ILLNESS: This is a 37-year-old female with past medical history significant for type 2 diabetes, currently not on any medication; peripheral neuropathy; end-stage renal disease on hemodialysis; hypertension; GERD; restless legs syndrome; history of chest pains; migraine; history of syncope; depression with anxiety; history of bipolar disorder. Comes because she missed her dialysis for the last couple of times as per tano. The patient says she got a new phone and phone did not ring due for dialysis. She has history of noncompliance .She says she is having on and off chest pains for the last 3 weeks and currently has chest pain, throbbing pain, 7/10 in severity. Currently, she is having some anxiety attacks, she says she takes Ativan at home. Because of her anxiety attacks, she is feeling pain all over the body and somewhat restless. She has chronic diarrhea, had several episodes of diarrhea in the ER. Currently, denies any shortness of breath, no headache, no blurred visions, no earache, no runny nose, no sore throat, no cough. Denies any fevers. When she came in, the blood pressure was high, 250/150. She received nitro sublingual and IV hydralazine, BP improved. Troponin high sensitivity 97. She says when she came in, she had nausea, that has improved with the Zofran. ALLERGIES: CEPHALOSPORINS, AMOXICILLIN, CLAVULANIC ACID. PAST MEDICAL HISTORY: As mentioned above. PAST SURGICAL HISTORY: AV access, , colonoscopy, left heart catheterization, cystoscopy, EGDs, EGD with endoscopic ultrasound, tunneled catheter placement, knee arthroscopy, laparoscopic cholecystectomy, ligation of oviducts, renal biopsy, percutaneous mechanical venous thrombectomy, renal transplant. MEDICATIONS: The patient is currently on albuterol 2 puffs inhalation p.r.n., albuterol nebulization p.r.n., amlodipine 10 mg p.o. at bedtime, calcium acetate 2000 mg p.o. t.i.d. with meals, Coreg 6.25 mg p.o. b.i.d., Sensipar 60 mg p.o. daily, dicyclomine 10 mg p.o. q.i.d. p.r.n., Dulera 2 puffs inhalation b.i.d., Flonase 2 sprays intranasal daily p.r.n., gabapentin 400 mg p.o. b.i.d., hydroxyzine 25 mg p.o. q. 6 hours p.r.n., lorazepam 0.5 mg p.o. q. 8 hours p.r.n., Depo-Provera 150 mg IM q. 90 days, omeprazole 20 mg p.o. a.m., Zofran 4 mg p.o. q. 6 hours p.r.n., renal vitamins 1 tablet daily, Zoloft 150 mg p.o. a.m., trazodone 200 mg p.o. at bedtime, varenicline as directed. FAMILY HISTORY: Significant for mother has diabetes, hyperthyroidism; sister has hyperthyroidism, hypertension; father has Crohn's, depression; brother has heart disorder. SOCIAL HISTORY: Smokes cigarettes half pack a day. No alcohol use. No drug use. REVIEW OF SYSTEMS: As per HPI. Rest of review of systems is negative. PHYSICAL EXAMINATION: GENERAL: The patient is obese, seems somewhat restless. VITAL SIGNS: Temperature 36.6, pulse 87, respiratory rate 12, blood pressure 152/107 currently, oxygen 94% on room air. HEENT: Pupils equal, round and reactive to light. Oral mucosa moist. NECK: No JVD, no neck masses. CARDIOVASCULAR: S1 and S2 heard. Regular rate and rhythm. No murmur, no gallop. RESPIRATORY SYSTEM: Normal AP diameter. No accessory muscle use. No wheezing, no crackles. ABDOMEN: Soft, bowel sounds present, nontender, no distention. CENTRAL NERVOUS SYSTEM: Alert and oriented, somewhat restless. Speech is clear. No facial droop. Obeys simple commands. Ambulating okay in the ER. EXTREMITIES: Mild pedal edema, no erythema seen. LABORATORY DATA: WBC 7.4, hemoglobin 8.5, hematocrit 26.4, platelets 141. PT 11.3, INR 1. Sodium 136, potassium 5, chloride 95, bicarbonate 24, BUN 68, creatinine 13.8, glucose 118, calcium 9.6, total bilirubin 0.5, AST 18, ALT 16, alkaline phosphatase 63. Troponin I high sensitivity 97. Lipase 41. SARS-CoV-2 rapid test negative. IMAGING DATA: Chest x-ray, no acute findings. EKG: Normal sinus rhythm at a rate of 91. Nonspecific ST changes, abnormalities, prolonged QTc of 516. ASSESSMENT AND PLAN: This is a 37-year-old female who presents with missed dialysis for the last 2 sessions and also has some chest pain and also found to have hypertensive urgency. 1. Missed dialysis: The patient has end-stage renal disease, on hemodialysis. Consult Nephrology for possible dialysis in the a.m. 2. Hypertensive urgency: The patient, when she came in, blood pressure was in 250/150s,missed dialysis.Improved with nitroglycerin sublingual and labetalol. Will continue with nitroglycerin paste, IV labetalol p.r.n. Continue her home medication of Coreg and amlodipine. Consult cardiology in the a.m. 3. Chest discomfort, probably from hypertensive urgency. History of chest pains in the past. Troponin is elevated at 90s. She has chronic elevation of troponins, it is generally in the 70s. Will follow serial cardiac enzymes, echo. Consult cardiology in the a.m. for further recommendations. 4. Anxiety and depression: Continue sertraline, trazodone, and Ativan as needed. 5. Anemia of chronic kidney disease: Hemoglobin 8.5. Will follow the labs. 6. Diabetes, not on any medication: Will follow the blood sugars, follow HbA1c levels. 7. History of thrombocytopenia: Platelets 141 currently. 8.Prolonged Qt.To avoid qt prolonging drugs. Follow repeat ekg. 9. Deep venous thrombosis prophylaxis: Heparin subcutaneously. DISPOSITION: Closely monitor in tele floor. Level 1 full code. Expect to discharge home and follow with family doctor. Job ID: [id number] [facility]
[2023-01-08] MEDS: ACETAMINOPHEN 325 MG TAB PO PRN ×2 (03:56→08:17)
[2023-01-08 05:04] LABS: Basophils # (auto) 0.04 K/uL (0-0.2); Basophils % (auto) 0.5 %; Eosinophils # (auto) 0.11 K/uL (0-0.50); Eosinophils % (auto) 1.4 %; Hematocrit (blood only) 26.6 % (37.0-47.0); Hemoglobin 8.7 g/dl (12.0-16.0); Immature Granulocytes # (auto) 0.02 K/uL (0.01-0.20); Immature Granulocytes % (auto) 0.2 %; Lymphocytes # (auto) 1.21 K/uL (1.2-3.4); Lymphocytes % (auto) 15.1 %; Mean Corpuscular Hemoglobin 31.2 pg (25.0-34.0); Mean Corpuscular Hgb Conc 32.7 g/dL (32.0-36.0); Mean Corpuscular Volume 95.3 fL (80.0-100.0); Mean Platelet Volume 9.6 fL (9.4-12.4); Monocytes # (auto) 0.45 K/uL (0.11-0.59); Monocytes % (auto) 5.6 %; Neutrophils # (auto) 6.18 K/uL (1.40-6.50); Neutrophils % (auto) 77.2 %; Platelet Count 131 K/uL (130-400); RDW Coefficient of Variation 14.7 % (11.5-14.5); RDW Standard Deviation 49.6 fL (36.4-46.3); Red Blood Count 2.79 M/uL (4.20-5.40); White Blood Count 8.01 K/ul (4.8-10.8)
[2023-01-08] MEDS: HEPARIN SOD 5,000 UNIT/0.5 ML VIAL SQ SCH ×3 (05:09→20:21)
[2023-01-08 05:32] LABS: Calcium 9.7 mg/dl (8.6-10.3); Magnesium 2.7 mg/dl (1.7-2.4)
[2023-01-08 05:40] LABS: BUN Creatinine Ratio 5.1 (10-20); Creatinine Clr Calc Pharmacy 6.5 ml/min; Est GFR (African American) 3.5 ml/min; Est GFR (Non-African American) 3.1 ml/min; Troponin I High Sensitivity 93.7 pg/ml (0-14)
[2023-01-08] MEDS ORDERED: SODIUM CHLORIDE 0.9% 1000ML 1,000 ML IV PRN (08:02)
[2023-01-08] MEDS ORDERED: HEPARIN SOD (PORCINE) 1000 UNIT/ML IV ONE (08:02)
[2023-01-08] MEDS: LORazepam 0.5 MG TAB PO PRN (08:17)
[2023-01-08] MEDS: CALCIUM ACETATE 667 MG CAP/TAB PO SCH ×3 (08:18→16:34)
[2023-01-08] MEDS: ASPIRIN 81 MG ECTAB PO SCH (08:20)
[2023-01-08] MEDS: GABAPENTIN 400 MG CAP PO SCH ×2 (08:21→20:16)
[2023-01-08] MEDS: FLUTICASONE/VILANTEROL 200/25MCG 14 PUFFS/INHALER INH SCH ×2 (08:21→08:31)
[2023-01-08] MEDS: NEPHROCAPS PO SCH (08:22)
[2023-01-08] MEDS: SERTRALINE HCL 50 MG TABLET PO SCH (08:22)
[2023-01-08] MEDS: PANTOprazole 40 MG TAB PO SCH (08:22)
--- NOTE | 2023-01-08 08:45 | XRay Report ---
XR chest 1V portable CLINICAL HISTORY: Chest pain, nonspecific TECHNIQUE: Single frontal radiograph of the chest was obtained. Comparison: Comparison is made to chest radiograph 01/02/2023 FINDINGS: No lines and tubes are seen. Cardiomegaly is noted. Prominence and cephalization of the vasculature i s seen. A vascular stent is seen on the right. No evidence of pleural effusion or pneumothorax. IMPRESSION: No acute chest disease. ACT 112: Negative or not required by law. Electronically signed by: Mario Holliday M.D. 01/08/2023 8:44 AM
[2023-01-08] MEDS ORDERED: carvediloL 6.25 MG TAB PO SCH (09:00)
[2023-01-08] MEDS ORDERED: NON-FORMULARY MEDICATION (Mometasone-Formoterol [Dulera] 200-5 mcg/actuation HFA aerosol i INH SCH (09:00)
[2023-01-08] MEDS: hydrOXYzine HCl 25 MG TAB PO PRN (10:20)
--- NOTE | 2023-01-08 10:33 | Electrocardiogram Report ---
Test Reason : Blood Pressure : / mmHG Vent. Rate : 091 BPM Atrial Rate : 091 BPM P-R Int : 160 ms QRS Dur : 098 ms QT Int : 420 ms P-R-T Axes : 035 022 044 degrees QTc Int : 516 ms Normal sinus rhythm Prolonged QT Abnormal ECG When compared with ECG of 02-JAN-2023 11:11, Non-specific change in ST segment in Inferior leads Confirmed by Daljit Thompson ([id number]) on 01/08/2023 10:33:20 AM Referred By: REFERRED SELF Confirmed By:Ric Thompson
--- NOTE | 2023-01-08 10:36 | Electrocardiogram Report ---
Test Reason : Blood Pressure : / mmHG Vent. Rate : 080 BPM Atrial Rate : 080 BPM P-R Int : 160 ms QRS Dur : 096 ms QT Int : 438 ms P-R-T Axes : 050 022 037 degrees QTc Int : 505 ms Normal sinus rhythm Poor R wave progression, consider anterior NV vs. lead placement vs. LVH Prolonged QT Abnormal ECG When compared with ECG of 07-JAN-2023 22:01, (unconfirmed) No significant change was found Confirmed by Daljit Thompson ([id number]) on 01/08/2023 10:36:04 AM Referred By: REFERRED SELF Confirmed By:Ric Thompson
[2023-01-08] MEDS: HEPARIN SOD (PORCINE) 1000 UNIT/ML IV SCH ×3 (11:01→14:02)
[2023-01-08] MEDS ORDERED: MoRPHine SULFATE 2 MG/ML CARP IV STA (15:31)
--- NOTE | 2023-01-08 16:18 | Hospitalist Progress Note ---
Date of Service January 08, 2023 Assessment & Plan (1) Hypertensive emergency: Plan: She missed her dialysis 2 or 3 times recently and came in with chest pressure and noted to have very high blood pressure She was noted to be drowsy and the blood pressure is very high at 250/120 Received intravenous labetalol and later on also received Nitropaste Blood pressure still remains on the upper side at around 160s to 100s Denies any more chest pain Carvedilol has been increased to 12.5 mg twice daily, continue amlodipine (2) End-stage renal disease on hemodialysis: Plan: Appreciate nephrology input and recommendation (3) Atypical chest pain: Plan: Has had chest pressure No significant EKG changes Troponin was mildly elevated without any increase in trend Echo of the heart showednormal LV size, mild concentric LVH, LV wall motion is normal, EF 50 to 55%, diastolic dysfunction grade 2, left atrium is dilated, there is mild to moderate mitral annular calcification, mild MR, mild TR and right ventricular systolic pressure is elevated to 40 to 45 mmHg Remains free from symptoms (4) Anxiety: (5) Dialysis patient, noncompliant: Plan: Has been very noncompliant Has had minimal dialysis today without any change in BUN and creatinine Likely to have dialysis tomorrow Appreciate nephrology input and recommendation (6) Major depressive disorder, recurrent, in partial remission: Plan: We will continue current medication Wants to go home Now under close observation in ICU (7) DM2 (diabetes mellitus, type 2): Plan: We will continue SSI Admission and Anticipated Discharge Date Admission Date: January 08, 2023 Subjective 01/08/2023 The patient was seen and examined in ICU in the morning and in the afternoon She has not had dialysis for 2 or 3 occasions and came in with drowsiness and very high blood pressure with associated chest pain Has been having very high blood pressure since this morning and wanted to leave Has had fall in room during going to the toilet She still wants to go home Review of Systems Review of Systems: All systems reviewed and are unremarkable except as noted below Physical Exam Physical Exam: Lying in bed with acute distress and wants to go to bathroom by herself and the blood pressure running very high at 167/102 Constitutional: well developed, well nourished, + ill appearing and + obese Eyes: PERRL, conjunctivae normal, anicteric sclerae ENMT: external ear and nose normal, oropharynx normal Neck: trachea midline, no thyromegaly Respiratory: + respiratory distress Auscultation: + diminished lung sounds and + crackles (Minimal crackles at the bases) Cardiovascular: Rate/Rhythm: regular rate and regular rhythm; not tachycardic Heart Sounds: normal S1 and normal S2; no murmur Extremities: no edema Gastrointestinal (Abdomen): Inspection/Auscultation: normal bowel sounds; abdomen not distended Percussion/Palpation: abdomen soft; abdomen nontender Musculoskeletal: No acute arthritis involving any joint Neurologic: Alert, 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. Generally weak but no focal neurodeficit Results & Data Results & Data Vital Signs (Past 12 Hours) Vital Signs Temp Pulse Pulse Pulse Resp BP BP 01/08/23 15:13 36.6 C 80 18 167/102 H 01/08/23 13:00 87 171/105 H 01/08/23 12:30 79 160/105 H 01/08/23 12:00 79 208/100 H 01/08/23 13:20 36.2 C L 84 185/95 H 01/08/23 11:30 88 173/99 H 01/08/23 14:48 83 16 166/97 H 01/08/23 13:54 87 18 197/103 H 01/08/23 10:30 86 219/99 H 01/08/23 11:00 87 185/101 H 01/08/23 10:00 69 145/100 H 01/08/23 09:41 85 181/95 H 01/08/23 10:55 36.3 C L 83 01/08/23 08:00 36.6 C 88 16 174/115 H 01/08/23 05:00 90 13 01/08/23 04:50 89 20 01/08/23 04:44 173/104 H 01/08/23 04:44 86 13 Pulse Ox O2 Del Method 01/08/23 15:13 95 Room Air 01/08/23 13:00 01/08/23 12:30 01/08/23 12:00 01/08/23 13:20 01/08/23 11:30 01/08/23 14:48 95 Room Air 01/08/23 13:54 97 Room Air 01/08/23 10:30 01/08/23 11:00 01/08/23 10:00 01/08/23 09:41 01/08/23 10:55 01/08/23 08:00 97 Room Air 01/08/23 05:00 98 01/08/23 04:50 99 01/08/23 04:44 01/08/23 04:44 100 Laboratory Results Short CBC 01/07/23 01/08/23 Range/Units 22:28 04:58 WBC 7.49 8.01 (4.8-10.8) K/ul Hgb 8.5 L 8.7 L (12.0-16.0) g/dl Hct 26.4 L 26.6 L (37.0-47.0) % Plt Count 141 131 (130-400) K/uL BMP 01/07/23 01/08/23 22:28 04:58 Sodium 136 134 L Potassium 5.0 5.0 Chloride 95 L 95 L Carbon Dioxide 24 22 BUN 68 H 69 H Creatinine 13.85 H* 13.62 H* Glucose 118 H 148 H Calcium 9.6 9.7 Liver Function 01/07/23 Range/Units 22:28 Total Bilirubin 0.5 (0.2-1.0) mg/dl AST 18 (13-39) U/L ALT 16 (7-52) U/L Alkaline Phosphatase 63 (34-104) U/L Albumin 3.9 (3.4-5.0) gm/dl Medications Administered Current Inpatient Medications Acetaminophen (Acetaminophen 325 Mg Tab) 650 mg PO Q4H PRN PRN Reason: Pain or Fever Stop: 02/07/23 01:37 Last Admin: 01/08/23 08:17 Dose: 650 mg Albuterol (Albuterol Hfa 8 Gm Inhaler) 2 puffs INH QID PRN PRN Reason: Shortness Of Breath Stop: 02/07/23 01:37 Albuterol (Albuterol 0.083% Nebu Soln 3 Ml Vial) 2.5 mg INH Q4H PRN; Protocol PRN Reason: Wheezing Stop: 02/07/23 01:37 Amlodipine Besylate (Amlodipine Besylate 5 Mg Tab) 10 mg PO HS [facility] Stop: 02/07/23 20:59 Aspirin (Aspirin 81 Mg Ectab) [facility] Stop: 02/07/23 08:59 Last Admin: 01/08/23 08:20 Dose: 81 mg Calcium Acetate (Calcium Acetate 667 Mg Cap/Tab) 2,001 mg PO TIDM [facility] Stop: 02/07/23 07:59 Last Admin: 01/08/23 12:43 Dose: Not Given Carvedilol (Carvedilol 12.5 Mg Tab) 12.5 mg PO BID [facility] Stop: 02/07/23 20:59 Cinacalcet (Cinacalcet Hcl 30 Mg Tab) 60 mg PO QDD [facility] Stop: 02/07/23 16:29 Dicyclomine HCl (Dicyclomine Hcl 10 Mg Cap) 10 mg PO QID PRN PRN Reason: abdominal spasms Stop: 02/07/23 01:37 Fluticasone Propionate (Fluticasone Propionate Na Spr 16 Gm Btl) 2 sprays NA DAILY PRN PRN Reason: Congestion Stop: 02/07/23 01:37 Fluticasone/Vilanterol (Fluticasone/Vilanterol 200/25mcg 14 Puffs/Inhaler) 1 puffs INH DAILY [facility] Stop: 02/07/23 08:59 Last Admin: 01/08/23 08:31 Dose: Not Given Gabapentin (Gabapentin 400 Mg Cap) 400 mg PO AMHS [facility] Stop: 02/07/23 08:59 Last Admin: 01/08/23 08:21 Dose: 400 mg Heparin Sodium (Porcine) (Heparin Sod 5,000 Unit/0.5 Ml Vial) 5,000 units SQ Q8 [facility] Stop: 02/07/23 05:59 Last Admin: 01/08/23 13:55 Dose: Not Given Hydroxyzine HCl (Hydroxyzine Hcl 25 Mg Tab) 25 mg PO Q6 PRN PRN Reason: Anxiety Stop: 02/07/23 01:37 Last Admin: 01/08/23 10:20 Dose: 25 mg Labetalol HCl (Labetalol Hcl Iv 5 Mg/Ml 20ml) 10 mg IV Q4H PRN PRN Reason: Hypertension Stop: 02/07/23 01:37 Last Admin: 01/08/23 14:01 Dose: 10 mg Lorazepam (Lorazepam 0.5 Mg Tab) 0.5 mg PO Q8 PRN PRN Reason: anxiety and before dialysis Stop: 02/07/23 01:37 Last Admin: 01/08/23 08:17 Dose: 0.5 mg Nitroglycerin (Nitroglycerin Sl 0.4 Mg/Tab Tab) 0.4 mg SL Q5M PRN PRN Reason: Chest Pain Stop: 02/07/23 01:37 Nitroglycerin (Nitroglycerin 2% Ointment 30gm Tube) 0.5 inch EXT Q6H [facility] Stop: 02/07/23 01:59 Last Admin: 01/08/23 14:01 Dose: 0.5 inch Pantoprazole Sodium (Pantoprazole 40 Mg Tab) 40 mg PO QAM [facility] Stop: 02/07/23 08:59 Last Admin: 01/08/23 08:22 Dose: 40 mg Sertraline HCl (Sertraline Hcl 50 Mg Tablet) 150 mg PO QAM [facility] Stop: 02/07/23 08:59 Last Admin: 01/08/23 08:22 Dose: 150 mg Trazodone HCl (Trazodone Hcl 100 Mg Tab) 200 mg PO HS [facility] Stop: 02/07/23 20:59 Vitamin B Complex/Folic Acid (Nephrocaps) 1 cap PO QAM [facility] Stop: 02/07/23 08:59 Last Admin: 01/08/23 08:22 Dose: 1 cap (7) DM2 (diabetes mellitus, type 2) Diabetes mellitus [facility] insulin use: without [facility] use Diabetes mellitus complication status: with unspecified complications Qualified Code(s): E11.8 - Type 2 diabetes mellitus with unspecified complications
[2023-01-08] MEDS: CINACALCET HCL 30 MG TAB PO SCH (16:34)
[2023-01-08] MEDS: carvediloL 12.5 MG TAB PO SCH (20:19)
[2023-01-08] MEDS: amLODIPine BESYLATE 5 MG TAB PO SCH (20:20)
[2023-01-08] MEDS: traZODone HCL 100 MG TAB PO SCH (20:21)
--- NOTE | 2023-01-08 21:21 | Nephrology Consultation ---
Date of Consultation January 08, 2023 Assessment & Plan (1) Dialysis patient, noncompliant: challenging psychosocial situation and with severe anxiety -ensure optimal anxiety care (2) Hypertensive emergency: treated w/ medications first adn then with dialysis. SBP improved acceptablly at this time w/o much improvemnt in MS -continue meds; will reeval in AM for further HD -doubt uremia contributes to altered MS > she has had creat in this range many times before w/o issue -low threshold for head CT History of Present Illness Reason for Consultation: ESRD on dialysis Requesting Physician: Dr Victor Attending Physician: Juan Victor MD History of Present Illness 37 y/o F whom I'm asked to see for dialysis needs was admitted with hypertensive urgency after missing dialysis. her last OP dialysis was January 02; she also skipped the 2 treatments prior to January 02. PMH includes DM2, HTN, gerd, hx of failed renal transplant, bipolar disorder/anxiety, restless leg syndrome. She has missed 9 of her last 20 outpatient dialysis treatments, often d/t uncontrolled anxiety or/and oversleeping. She presented with SBP 250 and intermittent chest pains 7/10 non radiating. she recenved SL nitro, IV hydralazine. We arranged for dialysis today: she had 3.5 hr w/ 4L fluid removal. she was restless and disoriented through the treatment but was able to complete it. sbp has been in 160-180s after tx. Her behavior has been very erratic today: she was unable to complete ROS at the time of my evaluation except to state repeatedly w/ slurred speech and dosing off midsentence that she wanted to go home. chest pain from earlier in the admission had resolved. denied dyspnea or current N. She is anuric. Allergies Allergy/AdvReac Type Severity Reaction Status Date / Time cefaclor Allergy Intermediate Rash Verified 01/07/23 22:00 Cephalosporins Allergy Intermediate Rash Verified 01/07/23 22:00 amoxicillin AdvReac Intermediate VOMITING Verified 01/07/23 22:00 clavulanic acid AdvReac Intermediate VOMITING Verified 01/07/23 22:00 Home Medications Medication Instructions Recorded Confirmed Type hydroxyzine HCl 25 mg tablet 25 mg PO Q6 PRN Anxiety 04/21/20 01/07/23 History calcium acetate(phosphat bind) 667 2,001 mg PO TIDM 06/22/20 01/07/23 History mg capsule albuterol sulfate 90 mcg/actuation 2 puff inhalation QID PRN 08/01/20 01/07/23 History aerosol inhaler Shortness Of Breath sertraline 100 mg tablet 150 mg PO QAM 08/02/20 01/07/23 History amlodipine 10 mg tablet 10 mg PO HS 08/10/20 01/07/23 History vitamin B complex-vitamin C-folic 1 tab PO QAM 08/10/20 01/07/23 History acid 0.8 mg tablet (Renal Vitamin) cinacalcet 30 mg tablet (Sensipar) 60 mg PO QDD 03/06/21 01/07/23 History lorazepam 0.5 mg tablet 0.5 mg PO Q8 PRN anxiety and 03/06/21 01/07/23 History before dialysis medroxyprogesterone 150 mg/mL 150 mg IM Q90D 03/06/21 01/07/23 History intramuscular suspension (Depo-Provera) gabapentin 400 mg capsule 400 mg PO [facility] 06/27/21 01/07/23 History (Neurontin) dicyclomine 10 mg capsule 10 mg PO QID PRN .. 01/19/22 01/07/23 History mometasone-formoterol HFA 200 2 puff inhalation BID 01/19/22 01/07/23 History mcg-5 mcg/actuation aerosol inhaler (Dulera) omeprazole 20 mg capsule,delayed 20 mg PO QAM 01/19/22 01/07/23 History release albuterol sulfate 2.5 mg/3 mL 2.5 mg inhalation Q4H PRN Wheezing 09/19/22 01/07/23 History (0.083 %) solution for nebulization fluticasone propionate 50 2 spray intranasal DAILY PRN 09/19/22 01/07/23 History mcg/actuation nasal Congestion spray,suspension (Flonase Allergy Relief) ondansetron HCl 4 mg tablet 4 mg PO Q6H PRN Nausea 09/19/22 01/07/23 History trazodone 100 mg tablet 200 mg PO HS 09/19/22 01/07/23 History carvedilol 6.25 mg tablet (Coreg) 6.25 mg PO BID 01/02/23 01/07/23 History varenicline 0.5 mg (11)-1 mg (42) 1 ea PO DIRECTED 01/02/23 01/07/23 History tablets in a dose pack Patient History Medical History Anemia due to end stage renal disease Anemia of chronic disease Anxiety Anxiety and depression Asthma "BEEN A WHILE" SINCE USING LAST RESCUE INHALER AVF (arteriovenous fistula) bilt---currently using right for dialysis Bipolar disorder CKD (chronic kidney disease) stage V requiring chronic dialysis Depression Depression with anxiety Dialysis patient SATURDAY/SAT/SATURDAY AT [facility] DM2 (diabetes mellitus, type 2) DM2 (diabetes mellitus, type 2) DVT prophylaxis ESRD (end stage renal disease) on dialysis ESRD (end stage renal disease) on dialysis Fistula right arm (currently being used) and left arm FSGS (focal segmental glomerulosclerosis) DX INITIALLY 2012 (CAUSING ESRD 2012) GERD (gastroesophageal reflux disease) History of abnormal cervical Papanicolaou smear HTN (hypertension) Peripheral neuropathy Prolonged QT interval Restless leg syndrome Status post fall Symptomatic anemia Tobacco abuse Surgical History H/O eye surgery LASER SURGERY LEFT H/O hernia repair ABDOMINAL WALL H/O knee surgery LEFT KNEE X 2 H/O tubal ligation H/O: X 2 History of cardiac cath 2016 NO STENTS History of cholecystectomy History of colonoscopy History of surgery (~09/09/20) perm cath replacement History of surgery left arm d/t clot in arm from AV fistula use @ [facility] History of tooth extraction three TOOTH Kidney transplant recipient 2013 AT [facility] S/P arteriovenous (AV) fistula creation right arm Family History Grandmother Hx of CABG Mother Diabetes Father Crohn's disease Grandfather (Maternal) Diabetes Uncle Diabetes Grandmother (Maternal) Family history of reaction to anesthesia difficulty waking with colonoscopy Social History Smoking Status: Light tobacco smoker Tobacco Type: Cigarettes Cigarettes Per Day: half a pack-she denies; Second Hand Exposure: No; Do You Dip or Chew Tobacco: No; Tobacco Cessation Education Requested by Patient: No Hx Alcohol Use: No Hx Substance Use: Yes Last Used Substance: Unknown Substance Use Type Other:: THC Preferred Language: Kazakh Communication Ability: Effective Typing Checker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 Beliefs That Will Affect Care: None marital status: Single Current Living Situation: Family Current Living Situation Comment: Lives with fiance and kids How many Children do You have: 3 Other Information That Helps Us Care for You: No Feels Safe at Home: Yes Safety Concerns: Feels Safe At This Time Assistive Devices: Glasses Review of Systems Review of Systems: All systems reviewed & are unremarkable except as noted in HPI & below, Unobtainable due to mental health condition and Unobtainable due to reduced consciousness Physical Exam Constitutional: well developed, well nourished, + acute distress (mild; moaniong) and + lethargic Eyes: EOM intact bilaterally ENMT: Ears: no external ear abnormality Nose: no external nose abnormality Mouth: + dry oral mucous membranes Neck: no nuchal rigidity Respiratory: normal respiratory effort Auscultation: + diminished lung sounds Cardiovascular: Rate/Rhythm: regular rate and regular rhythm Extremities: + AV fistula; no edema Gastrointestinal (Abdomen): Inspection/Auscultation: normal bowel sounds Percussion/Palpation: abdomen soft; abdomen nontender Musculoskeletal: Extremities: strength 5/5 throughout Skin: no rashes, warm and dry Neurologic: sandy, limited speech which is slurred intermittently, no tremor Results & Data Vital Signs (Past 12 Hours) Vital Signs Temp Pulse Pulse Pulse Resp BP BP 01/08/23 19:38 36.7 C 79 16 157/101 H 01/08/23 17:35 75 18 185/98 H 01/08/23 15:13 36.6 C 80 18 167/102 H 01/08/23 13:00 87 171/105 H 01/08/23 12:30 79 160/105 H 01/08/23 12:00 79 208/100 H 01/08/23 13:20 36.2 C L 84 185/95 H 01/08/23 11:30 88 173/99 H 01/08/23 14:48 83 16 166/97 H 01/08/23 13:54 87 18 197/103 H 01/08/23 10:30 86 219/99 H 01/08/23 11:00 87 185/101 H 01/08/23 10:00 69 145/100 H 01/08/23 09:41 85 181/95 H 01/08/23 10:55 36.3 C L 83 Pulse Ox O2 Del Method 01/08/23 19:38 96 Room Air 01/08/23 17:35 94 Room Air 01/08/23 15:13 95 Room Air 01/08/23 13:00 01/08/23 12:30 01/08/23 12:00 01/08/23 13:20 01/08/23 11:30 01/08/23 14:48 95 Room Air 01/08/23 13:54 97 Room Air 01/08/23 10:30 01/08/23 11:00 01/08/23 10:00 01/08/23 09:41 01/08/23 10:55 Laboratory Results 01/08/23 04:58 01/08/23 04:58 Diagnostic Findings CXR w/o acute process TTE reviewed
[2023-01-09] MEDS: NITROGLYCERIN 2% OINTMENT 30GM TUBE EXT SCH ×3 (01:59→13:36)
[2023-01-09] MEDS: HEPARIN SOD 5,000 UNIT/0.5 ML VIAL SQ SCH ×3 (02:40→21:43)
[2023-01-09 06:29] LABS: BUN Creatinine Ratio 3.6 (10-20); Calcium 10.2 mg/dl (8.6-10.3); Creatinine Clr Calc Pharmacy 10.6 ml/min; Est GFR (African American) 6.7 ml/min; Est GFR (Non-African American) 5.8 ml/min; Potassium 4.6 mmol/L (3.5-5.1)
[2023-01-09] MEDS ORDERED: EPOETIN ALFA 20,000 UNITS/ML VIAL IV ONE (07:39)
[2023-01-09] MEDS ORDERED: HEPARIN SOD (PORCINE) 1000 UNIT/ML IV ONE (07:39)
[2023-01-09] MEDS ORDERED: SODIUM CHLORIDE 0.9% 1000ML 1,000 ML IV PRN (07:39)
[2023-01-09] MEDS: LORazepam 0.5 MG TAB PO PRN (08:02)
[2023-01-09] MEDS: hydrOXYzine HCl 25 MG TAB PO PRN (08:02)
--- NOTE | 2023-01-09 10:26 | Electrocardiogram Report ---
Test Reason : Blood Pressure : / mmHG Vent. Rate : 071 BPM Atrial Rate : 071 BPM P-R Int : 148 ms QRS Dur : 096 ms QT Int : 460 ms P-R-T Axes : 041 004 043 degrees QTc Int : 499 ms Normal sinus rhythm Possible Left atrial enlargement Nonspecific ST abnormality Abnormal ECG When compared with ECG of 08-JAN-2023 04:52, No significant change was found Confirmed by Daljit Thompson ([id number]) on 01/09/2023 10:25:47 AM Referred By: REFERRED SELF Confirmed By:Ric Thompson
[2023-01-09] MEDS: HEPARIN SOD (PORCINE) 1000 UNIT/ML IV SCH ×2 (10:43→13:09)
[2023-01-09] MEDS: CALCIUM ACETATE 667 MG CAP/TAB PO SCH ×3 (10:55→15:23)
[2023-01-09] MEDS: FLUTICASONE/VILANTEROL 200/25MCG 14 PUFFS/INHALER INH SCH (13:07)
[2023-01-09] MEDS: GABAPENTIN 400 MG CAP PO SCH ×2 (13:08→21:42)
[2023-01-09] MEDS: PANTOprazole 40 MG TAB PO SCH (13:08)
[2023-01-09] MEDS: SERTRALINE HCL 50 MG TABLET PO SCH (13:08)
[2023-01-09] MEDS: NEPHROCAPS PO SCH (13:08)
[2023-01-09] MEDS: ASPIRIN 81 MG ECTAB PO SCH (13:08)
[2023-01-09] MEDS: carvediloL 12.5 MG TAB PO SCH ×2 (13:36→21:43)
[2023-01-09] MEDS: CINACALCET HCL 30 MG TAB PO SCH (15:22)
--- NOTE | 2023-01-09 17:06 | Dialysis Progress Note ---
Date of Service January 09, 2023 Assessment & Plan (1) Dialysis patient, noncompliant: Plan: challenging psychosocial situation and with severe anxiety -ensure optimal anxiety/psych care (2) Hypertensive emergency: Plan: treated w/ medications first and then with dialysis. SBP improved acceptably at this time w/o much improvement in MS -continue meds; will reeval in AM for further HD -doubt uremia contributes to altered MS > she has had creat in this range many times before w/o issue -low threshold for head CT if MS worsens Admission and Anticipated Discharge Date Admission Date: January 08, 2023 Subjective seen on HD today late AM; completed treatment with 3.5 L UF; no sob or edema or uncontrolled pain; tells me she's "tired and bored' Review of Systems Review of Systems: All systems reviewed & are unremarkable except as noted in Subjective Physical Exam Constitutional: well developed, well nourished and + lethargic (less than yesterday; moaning intermittently); no acute distress Eyes: EOM intact bilaterally ENMT: Ears: no external ear abnormality Nose: no external nose abnormality Mouth: + dry oral mucous membranes Neck: no nuchal rigidity Respiratory: normal respiratory effort Auscultation: + diminished lung sounds Cardiovascular: Rate/Rhythm: regular rate and regular rhythm Extremities: + AV fistula; no edema Gastrointestinal (Abdomen): Inspection/Auscultation: normal bowel sounds Percussion/Palpation: abdomen soft; abdomen nontender Musculoskeletal: Extremities: strength 5/5 throughout Skin: no rashes, warm and dry Neurologic: sandy, limited slurred speech, doses off intermittently Results & Data Vital Signs (Past 12 Hours) Vital Signs Temp Pulse Pulse Pulse Resp BP BP 01/09/23 16:00 83 01/09/23 15:28 36.7 C 83 15 168/75 H 01/09/23 12:35 36.5 C 83 170/87 H 01/09/23 13:00 01/09/23 13:09 36.5 C 85 15 155/102 H 01/09/23 11:30 83 162/109 H 01/09/23 11:00 83 185/72 H 01/09/23 10:30 83 190/100 H 01/09/23 10:00 81 174/94 H 01/09/23 09:30 73 132/82 01/09/23 09:00 75 183/144 H 01/09/23 08:30 72 154/102 H 01/09/23 08:25 76 188/82 H 01/09/23 08:17 36.6 C 79 01/09/23 07:00 01/09/23 07:00 78 01/09/23 07:33 36.7 C 79 15 144/91 H 01/09/23 05:24 37.0 C 152/83 H 01/09/23 05:24 78 16 Pulse Ox O2 Del Method 01/09/23 16:00 01/09/23 15:28 94 Room Air 01/09/23 12:35 01/09/23 13:00 Room Air 01/09/23 13:09 95 Room Air 01/09/23 11:30 01/09/23 11:00 01/09/23 10:30 01/09/23 10:00 01/09/23 09:30 01/09/23 09:00 01/09/23 08:30 01/09/23 08:25 01/09/23 08:17 01/09/23 07:00 Room Air 01/09/23 07:00 01/09/23 07:33 96 Room Air 01/09/23 05:24 01/09/23 05:24 96 Room Air
--- NOTE | 2023-01-09 18:26 | Hospitalist Progress Note ---
Date of Service January 09, 2023 Assessment & Plan (1) Hypertensive emergency: Plan: She missed her dialysis 2 or 3 times recently and came in with chest pressure and noted to have very high blood pressure She was noted to be drowsy and the blood pressure is very high at 250/120 Received intravenous labetalol and later on also received Nitropaste, which she is now refusing Blood pressure still remains on the upper side at around 160s systolic Was denying chest pain, and tonight was too lethargic to answer questions Carvedilol has been increased to 12.5 mg twice daily, continue amlodipine (2) Atypical chest pain: Plan: Has had chest pressure on arrival in the setting of very high blood pressure No significant EKG changes Troponin was mildly elevated without any increase in trend Echo of the heart showednormal LV size, mild concentric LVH, LV wall motion is normal, EF 50 to 55%, diastolic dysfunction grade 2, left atrium is dilated, there is mild to moderate mitral annular calcification, mild MR, mild TR and right ventricular systolic pressure is elevated to 40 to 45 mmHg Remains free from symptoms (3) End-stage renal disease on hemodialysis: Plan: Cont per nephrology. Cont phosphate binder and cinacalcet per home regimen. 4L UF off yesterday and 3.5L off today. (4) Anxiety: Plan: hydroxyzine PRN, caution with benzos so as not to create dependence. (5) Dialysis patient, noncompliant: Plan: As pointed out in the nephrology note her last OP HD session was on January 02 and she also skipped the 2 treatments prior to January 02. She has missed 9 of her last 20 outpatient dialysis sessions often due to uncontrolled anxiety or oversleeping. (6) Major depressive disorder, recurrent, in partial remission: Plan: chronic, unable to discuss this with her given lethargic state. Consulted behavioral health liaison for assistance with getting her hooked into outpatient care for this. She is on sertraline 150mg daily, which is continued. (7) DM2 (diabetes mellitus, type 2): Plan: A1C reflects good overall control. She is not on outpatient medication. (8) Anemia in ESRD (end-stage renal disease): Plan: chronic, stable. DVT proph: heparin Full Code Dispo-to home when mental status improves and she is feeling better. Ragini Glover DO [facility] Hospitalist Admission and Anticipated Discharge Date Admission Date: January 08, 2023 Subjective 37 yo diabetic female with ESRD on hemodialysis presents with chest pain and elevated BP to 252/150. she is lethargic after HD today but is able to awaken to voice and pop her head up and say "Im here" before falling back asleep again. Review of Systems Review of Systems: All systems were reviewed and negative except as indicated on subjective above. Physical Exam Physical Exam: CONSTITUTIONAL: WNWD, vitals as above, generally well-appearing EYES: normal conjunctivae, no scleral icterus ENT: external ear and nose normal, MMM NECK: trachea midline RESPIRATORY: clear to auscultation bilaterally, no crackles, rales or wheezes, normal respiratory effort CARDIOVASCULAR: regular rate and rhythm, S1 and 2 heard without murmurs, gallops or rubs, no JVD, no peripheral edema CHEST: inspection of chest was normal GASTROINTESTINAL: soft, nontender, ND, no guarding MUSCULOSKELETAL: strength 5/5 throughout, head is normocephalic and atraumatic SKIN: warm and dry NEUROLOGIC: CN 2-12 grossly intact, no sensory deficit, normal cognition, normal speech, no tremor PSYCHIATRIC: alert cooperative and oriented to person, place and time. Euthymic mood, makes good eye contact, language grossly intact, recent and remote memory grossly intact. Results & Data Results & Data Vital Signs (Past 12 Hours) Vital Signs Temp Pulse Pulse Pulse Resp BP BP 01/09/23 16:00 83 01/09/23 15:28 36.7 C 83 15 168/75 H 01/09/23 12:35 36.5 C 83 170/87 H 01/09/23 13:00 01/09/23 13:09 36.5 C 85 15 155/102 H 01/09/23 11:30 83 162/109 H 01/09/23 11:00 83 185/72 H 01/09/23 10:30 83 190/100 H 01/09/23 10:00 81 174/94 H 01/09/23 09:30 73 132/82 01/09/23 09:00 75 183/144 H 01/09/23 08:30 72 154/102 H 01/09/23 08:25 76 188/82 H 01/09/23 08:17 36.6 C 79 01/09/23 07:00 01/09/23 07:00 78 01/09/23 07:33 36.7 C 79 15 144/91 H Pulse Ox O2 Del Method 01/09/23 16:00 01/09/23 15:28 94 Room Air 01/09/23 12:35 01/09/23 13:00 Room Air 01/09/23 13:09 95 Room Air 01/09/23 11:30 01/09/23 11:00 01/09/23 10:30 01/09/23 10:00 01/09/23 09:30 01/09/23 09:00 01/09/23 08:30 01/09/23 08:25 01/09/23 08:17 01/09/23 07:00 Room Air 01/09/23 07:00 01/09/23 07:33 96 Room Air Laboratory Results Short CBC 01/09/23 Range/Units 05:29 WBC Cancelled Hgb Cancelled Hct Cancelled Plt Count Cancelled BMP 01/09/23 05:29 Sodium 137 Potassium 4.6 Chloride 98 Carbon Dioxide 26 BUN 29 H D Creatinine 8.06 H* D Glucose 113 H Calcium 10.2 Medications Administered Current Inpatient Medications Acetaminophen (Acetaminophen 325 Mg Tab) 650 mg PO Q4H PRN PRN Reason: Pain or Fever Stop: 02/07/23 01:37 Last Admin: 01/08/23 08:17 Dose: 650 mg Albuterol (Albuterol Hfa 8 Gm Inhaler) 2 puffs INH QID PRN PRN Reason: Shortness Of Breath Stop: 02/07/23 01:37 Albuterol (Albuterol 0.083% Nebu Soln 3 Ml Vial) 2.5 mg INH Q4H PRN; Protocol PRN Reason: Wheezing Stop: 02/07/23 01:37 Amlodipine Besylate (Amlodipine Besylate 5 Mg Tab) 10 mg PO HS NIKKI Stop: 02/07/23 20:59 Last Admin: 01/08/23 20:20 Dose: 10 mg Aspirin (Aspirin 81 Mg Ectab) 81 mg PO QAM NIKKI Stop: 02/07/23 08:59 Last Admin: 01/09/23 13:08 Dose: 81 mg Calcium Acetate (Calcium Acetate 667 Mg Cap/Tab) 2,001 mg PO TIDM NIKKI Stop: 02/07/23 07:59 Last Admin: 01/09/23 15:23 Dose: Not Given Carvedilol (Carvedilol 12.5 Mg Tab) 12.5 mg PO BID [facility] Stop: 02/07/23 20:59 Last Admin: 01/09/23 13:36 Dose: 12.5 mg Cinacalcet (Cinacalcet Hcl 30 Mg Tab) 60 mg PO QDD NIKKI Stop: 02/07/23 16:29 Last Admin: 01/09/23 15:22 Dose: Not Given Dicyclomine HCl (Dicyclomine Hcl 10 Mg Cap) 10 mg PO QID PRN PRN Reason: abdominal spasms Stop: 02/07/23 01:37 Fluticasone Propionate (Fluticasone Propionate Na Spr 16 Gm Btl) 2 sprays NA DAILY PRN PRN Reason: Congestion Stop: 02/07/23 01:37 Fluticasone/Vilanterol (Fluticasone/Vilanterol 200/25mcg 14 Puffs/Inhaler) 1 puffs INH DAILY NIKKI Stop: 02/07/23 08:59 Last Admin: 01/09/23 13:07 Dose: 1 puffs Gabapentin (Gabapentin 400 Mg Cap) 400 mg PO AMHS NIKKI Stop: 02/07/23 08:59 Last Admin: 01/09/23 13:08 Dose: 400 mg Heparin Sodium (Porcine) (Heparin Sod 5,000 Unit/0.5 Ml Vial) 5,000 units SQ Q8 NIKKI Stop: 02/07/23 05:59 Last Admin: 01/09/23 13:36 Dose: Not Given Hydroxyzine HCl (Hydroxyzine Hcl 25 Mg Tab) 25 mg PO Q6 PRN PRN Reason: Anxiety Stop: 02/07/23 01:37 Last Admin: 01/09/23 08:02 Dose: 25 mg Labetalol HCl (Labetalol Hcl Iv 5 Mg/Ml 20ml) 10 mg IV Q4H PRN PRN Reason: Hypertension Stop: 02/07/23 01:37 Last Admin: 01/08/23 14:01 Dose: 10 mg Lorazepam (Lorazepam 0.5 Mg Tab) 0.5 mg PO Q8 PRN PRN Reason: anxiety and before dialysis Stop: 02/07/23 01:37 Last Admin: 01/09/23 08:02 Dose: 0.5 mg Nitroglycerin (Nitroglycerin Sl 0.4 Mg/Tab Tab) 0.4 mg SL Q5M PRN PRN Reason: Chest Pain Stop: 02/07/23 01:37 Nitroglycerin (Nitroglycerin 2% Ointment 30gm Tube) 0.5 inch EXT Q6H [facility] Stop: 02/07/23 01:59 Last Admin: 01/09/23 13:36 Dose: Not Given Pantoprazole Sodium (Pantoprazole 40 Mg Tab) 40 mg PO QAM [facility] Stop: 02/07/23 08:59 Last Admin: 01/09/23 13:08 Dose: 40 mg Sertraline HCl (Sertraline Hcl 50 Mg Tablet) 150 mg PO QAM [facility] Stop: 02/07/23 08:59 Last Admin: 01/09/23 13:08 Dose: 150 mg Trazodone HCl (Trazodone Hcl 100 Mg Tab) 200 mg PO HS [facility] Stop: 02/07/23 20:59 Last Admin: 01/08/23 20:21 Dose: 200 mg Vitamin B Complex/Folic Acid (Nephrocaps) 1 cap PO QAM [facility] Stop: 02/07/23 08:59 Last Admin: 01/09/23 13:08 Dose: 1 cap (7) DM2 (diabetes mellitus, type 2) Diabetes mellitus termite control representative insulin use: without termite control representative use Diabetes mellitus complication status: with unspecified complications Qualified Code(s): E11.8 - Type 2 diabetes mellitus with unspecified complications
[2023-01-09] MEDS: amLODIPine BESYLATE 5 MG TAB PO SCH (21:41)
[2023-01-09] MEDS: traZODone HCL 100 MG TAB PO SCH (21:41)
[2023-01-10] MEDS: HEPARIN SOD 5,000 UNIT/0.5 ML VIAL SQ SCH (06:21)
[2023-01-10 07:52] LABS: Basophils # (auto) 0.02 K/uL (0-0.2); Basophils % (auto) 0.4 %; Eosinophils # (auto) 0.09 K/uL (0-0.50); Eosinophils % (auto) 1.8 %; Hematocrit (blood only) 30.7 % (37.0-47.0); Hemoglobin 9.9 g/dl (12.0-16.0); Immature Granulocytes # (auto) 0.02 K/uL (0.01-0.20); Immature Granulocytes % (auto) 0.4 %; Lymphocytes # (auto) 0.76 K/uL (1.2-3.4); Lymphocytes % (auto) 15.1 %; Mean Corpuscular Hemoglobin 30.6 pg (25.0-34.0); Mean Corpuscular Hgb Conc 32.2 g/dL (32.0-36.0); Mean Corpuscular Volume 94.8 fL (80.0-100.0); Mean Platelet Volume 9.7 fL (9.4-12.4); Monocytes # (auto) 0.45 K/uL (0.11-0.59); Monocytes % (auto) 8.9 %; Neutrophils # (auto) 3.69 K/uL (1.40-6.50); Neutrophils % (auto) 73.4 %; Platelet Count 119 K/uL (130-400); RDW Coefficient of Variation 14.5 % (11.5-14.5); RDW Standard Deviation 47.8 fL (36.4-46.3); Red Blood Count 3.24 M/uL (4.20-5.40); White Blood Count 5.03 K/ul (4.8-10.8)
[2023-01-10 08:17] LABS: BUN Creatinine Ratio 3.8 (10-20); Calcium 10.3 mg/dl (8.6-10.3); Est GFR (African American) 10.4 ml/min
[2023-01-10] MEDS: CALCIUM ACETATE 667 MG CAP/TAB PO SCH ×2 (08:34→11:50)
[2023-01-10] MEDS: carvediloL 12.5 MG TAB PO SCH (08:34)
[2023-01-10] MEDS: ASPIRIN 81 MG ECTAB PO SCH (08:34)
[2023-01-10] MEDS: PANTOprazole 40 MG TAB PO SCH (08:35)
[2023-01-10] MEDS: NEPHROCAPS PO SCH (08:35)
[2023-01-10] MEDS: SERTRALINE HCL 50 MG TABLET PO SCH (08:35)
[2023-01-10] MEDS: FLUTICASONE/VILANTEROL 200/25MCG 14 PUFFS/INHALER INH SCH (08:35)
[2023-01-10] MEDS: GABAPENTIN 400 MG CAP PO SCH (08:35)
[2023-01-10 10:02] LABS: HBSAG NON-REACTIVE (NON-REACTIVE); Hepatitis B Surface Ab, Quant 45 mIU/mL (> OR = 10)
--- NOTE | 2023-01-10 10:37 | Electrocardiogram Report ---
Test Reason : Blood Pressure : / mmHG Vent. Rate : 071 BPM Atrial Rate : 071 BPM P-R Int : 144 ms QRS Dur : 100 ms QT Int : 472 ms P-R-T Axes : 008 -12 052 degrees QTc Int : 512 ms Normal sinus rhythm Minimal voltage criteria for LVH, may be normal variant Nonspecific ST abnormality Prolonged QT Abnormal ECG When compared with ECG of 09-JAN-2023 05:41, Nonspecific T wave abnormality now evident in Lateral leads Confirmed by Dlajit Thompson ([id number]) on 01/10/2023 10:37:21 AM Referred By: REFERRED SELF Confirmed By:Ric Thompson
--- NOTE | 2023-01-10 13:22 | Discharge Summary ---
Discharge Summary Date of Service January 10, 2023 Notes For Next Care Provider cont to remain compliant with hemodialysis stop smoking Medication Changes From Visit Increased Coreg to 12.5mg PO BID Principal Dx & Hospital Course #1 = Principal Diagnosis (1) Hypertensive emergency: She missed her dialysis 2 or 3 times recently and came in with chest pressure and noted to have very high blood pressure She was noted to be drowsy and the blood pressure is very high at 250/120 Received intravenous labetalol and later on also received Nitropaste, which she is now refusing Blood pressure still remains on the upper side at around 160s systolic Was denying chest pain, and tonight was too lethargic to answer questions Carvedilol has been increased to 12.5 mg twice daily, continue amlodipine (2) Atypical chest pain: Has had chest pressure on arrival in the setting of very high blood pressure No significant EKG changes Troponin was mildly elevated without any increase in trend Echo of the heart showednormal LV size, mild concentric LVH, LV wall motion is normal, EF 50 to 55%, diastolic dysfunction grade 2, left atrium is dilated, there is mild to moderate mitral annular calcification, mild MR, mild TR and right ventricular systolic pressure is elevated to 40 to 45 mmHg Remains free from symptoms (3) End-stage renal disease on hemodialysis: Cont per nephrology. Cont phosphate binder and cinacalcet per home regimen. 4L UF off yesterday and 3.5L off today. (4) Anxiety: hydroxyzine PRN, caution with benzos so as not to create dependence. (5) Dialysis patient, noncompliant: As pointed out in the nephrology note her last OP HD session was on January 02 and she also skipped the 2 treatments prior to January 02. She has missed 9 of her last 20 outpatient dialysis sessions often due to uncontrolled anxiety or oversleeping. (6) Major depressive disorder, recurrent, in partial remission: chronic, unable to discuss this with her given lethargic state. Consulted behavioral health liaison for assistance with getting her hooked into outpatient care for this. She is on sertraline 150mg daily, which is continued. (7) DM2 (diabetes mellitus, type 2): A1C reflects good overall control. She is not on outpatient medication. (8) Anemia in ESRD (end-stage renal disease): chronic, stable. DVT proph: heparin Full Code Dispo-to home when mental status improves and she is feeling better. [facility] Exam CONSTITUTIONAL: WNWD, vitals as above, generally well-appearing EYES: normal conjunctivae, no scleral icterus ENT: external ear and nose normal, MMM NECK: trachea midline RESPIRATORY: clear to auscultation bilaterally, no crackles, rales or wheezes, normal respiratory effort CARDIOVASCULAR: regular rate and rhythm, S1 and 2 heard without murmurs, gallops or rubs, no JVD, no peripheral edema CHEST: inspection of chest was normal GASTROINTESTINAL: soft, nontender, ND, no guarding MUSCULOSKELETAL: strength 5/5 throughout, head is normocephalic and atraumatic SKIN: warm and dry NEUROLOGIC: CN 2-12 grossly intact, no sensory deficit, normal cognition, no rmal speech, no tremor PSYCHIATRIC: alert cooperative and oriented to person, place and time. Euthymic mood, makes good eye contact, language grossly intact, recent and remote memory grossly intact. Updated Medication List Medication Instructions Recorded Confirmed Type hydroxyzine HCl 25 mg tablet 25 mg PO Q6 PRN Anxiety 04/21/20 01/07/23 History calcium acetate(phosphat bind) 667 2,001 mg PO TIDM 06/22/20 01/07/23 History mg capsule albuterol sulfate 90 mcg/actuation 2 puff inhalation QID PRN 08/01/20 01/07/23 History aerosol inhaler Shortness Of Breath sertraline 100 mg tablet 150 mg PO QAM 08/02/20 01/07/23 History amlodipine 10 mg tablet 10 mg PO HS 08/10/20 01/07/23 History vitamin B complex-vitamin C-folic 1 tab PO QAM 08/10/20 01/07/23 History acid 0.8 mg tablet (Renal Vitamin) cinacalcet 30 mg tablet (Sensipar) 60 mg PO QDD 03/06/21 01/07/23 History lorazepam 0.5 mg tablet 0.5 mg PO Q8 PRN anxiety and 03/06/21 01/07/23 History before dialysis medroxyprogesterone 150 mg/mL 150 mg IM Q90D 03/06/21 01/07/23 History intramuscular suspension (Depo-Provera) gabapentin 400 mg capsule 400 mg PO AMHS 06/27/21 01/07/23 History (Neurontin) dicyclomine 10 mg capsule 10 mg PO QID PRN .. 01/19/22 01/07/23 History mometasone-formoterol HFA 200 2 puff inhalation BID 01/19/22 01/07/23 History mcg-5 mcg/actuation aerosol inhaler (Dulera) omeprazole 20 mg capsule,delayed 20 mg PO QAM 01/19/22 01/07/23 History release albuterol sulfate 2.5 mg/3 mL 2.5 mg inhalation Q4H PRN Wheezing 09/19/22 01/07/23 History (0.083 %) solution for nebulization fluticasone propionate 50 2 spray intranasal DAILY PRN 09/19/22 01/07/23 History mcg/actuation nasal Congestion spray,suspension (Flonase Allergy Relief) ondansetron HCl 4 mg tablet 4 mg PO Q6H PRN Nausea 09/19/22 01/07/23 History trazodone 100 mg tablet 200 mg PO HS 09/19/22 01/07/23 History carvedilol 6.25 mg tablet (Coreg) 6.25 mg PO BID 01/02/23 01/07/23 History varenicline 0.5 mg (11)-1 mg (42) 1 ea PO DIRECTED 01/02/23 01/07/23 History tablets in a dose pack carvedilol 12.5 mg tablet 12.5 mg PO BID #60 tabs 01/10/23 Rx Hospital Stay Data Consultations 01/07/23 23:24 ED Decision to Admit Stat 01/08/23 08:00 Consult Cardiology Routine Consult Nephrology Routine 01/09/23 09:05 Consult Behavioral Health Liaison Routine Pending Results Patient Have Any Pending Studies at Discharge: No Discharge Instructions Given to Patient (Per Discharging Provider) Please take all medications as instructed on discharge list below. Please continue to stay compliant with ALL hemodialysis sessions to avoid issues with blood pressure, shakiness, and chest pains. Complete smoking cessation is recommended. Please continue outpatient counseling for better control over your anxiety. It was a pleasure taking care of you! Please call if you have any questions or problems. You can reach a [facility] hospitalist on duty at [facility] 24 hours a day by calling [phone]. Take care of yourself. DO Rigo [facility] Hospitalist Total Time Total Time Spent Total Time Spent (In Minutes): 60
== END 2023-01-10 14:57 | disposition home or self-care (01) | DRG 304 ==
LOC: ED 20:44 → SUATTDRO 01-08 00:15 → 1E 01-08 00:15

== ENCOUNTER 2023-06-07 18:49 | Inpatient (IN) ==
--- NOTE | 2023-06-07 20:16 | XRay Report ---
SINGLE VIEW CHEST CLINICAL HISTORY: Cough FINDINGS: A PA chest radiograph is compared to study dated 05/11/2023. Correlation is made with chest CT dated 03/20/2022. Stents project over the upper chest. The heart is enlarged. There is pulmonary va scular congestion. Bilateral airspace opacities likely represent interstitial edema Small pleural eff usions are suspected.. No pneumothorax is seen. The bony thorax is grossly intact. Cholecystectomy cl ips are noted in the right upper quadrant. IMPRESSION: 1. Cardiomegaly with evidence of congestive failure. 2. Bilateral airspace opacities likely represent pulmonary edema. Correlate clinically for evidence o f a superimposed pneumonitis. Radiographic follow-up to resolution is recommended. 3. Suspect small pleural effusions. ACT 112: Negative or not required by law. Electronically signed by: North Quintero M.D. 06/07/2023 8:14 PM
[2023-06-07 21:50] LABS: Influenza A virus by PCR Negative (Neg); Influenza B virus by PCR Negative (Neg); RSV by PCR Negative (Neg)
[2023-06-07 22:03] LABS: Basophils # (auto) 0.02 K/uL (0.00-0.20); Basophils % (auto) 0.2 %; Eosinophils # (auto) 0.15 K/uL (0.00-0.50); Eosinophils % (auto) 1.7 %; Hematocrit (blood only) 29.3 % (37.0-47.0); Hemoglobin 9.7 g/dl (12.0-16.0); Immature Granulocytes # (auto) 0.03 K/uL (0.01-0.20); Immature Granulocytes % (auto) 0.3 %; Lymphocytes # (auto) 0.97 K/uL (1.20-3.40); Lymphocytes % (auto) 11.2 %; Mean Corpuscular Hemoglobin 33.9 pg (25.0-34.0); Mean Corpuscular Hgb Conc 33.1 g/dL (32.0-36.0); Mean Corpuscular Volume 102.4 fL (80.0-100.0); Mean Platelet Volume 12.4 fL (9.4-12.4); Monocytes # (auto) 0.71 K/uL (0.11-0.59); Monocytes % (auto) 8.2 %; Neutrophils # (auto) 6.79 K/uL (1.40-6.50); Neutrophils % (auto) 78.4 %; Platelet Count 91 K/uL (130-400); RDW Coefficient of Variation 16.5 % (11.5-14.5); RDW Standard Deviation 62.6 fL (36.4-46.3); Red Blood Count 2.86 M/uL (4.20-5.40); White Blood Count 8.67 K/ul (4.8-10.8)
[2023-06-07 22:05] LABS: SARS CoV2 RNA(COVID-19) Ceph POSITIVE (Negative)
--- NOTE | 2023-06-07 22:32 | Emergency Department Note ---
Impression & Plan SOB (shortness of breath), CHF (congestive heart failure), Acute uremia, Somnolence, Medical non-compliance, Elevated troponin, Dialysis patient ED Provider Note NAME: NATHALIA DUTTON AGE: 37 SEX: F : 1985 ARRIVES VIA: Walk-In INFORMANT: [Patient] ED PROVIDER(S): [North Thomas MD] CHIEF COMPLAINT: Illness HISTORY OF PRESENT ILLNESS: The patient is a 37-year-old female with a history of noncompliance. The patient is on hemodialysis. The patient states that she missed 3 or 4 dialysis appointments. She presents today short of breath and sleepy. The patient denies cough or congestion. She has not had fever. No chest or abdominal pain. She told our nursing staff that she went to dialysis today but they refused to do dialysis because she had missed so many appointments. PMHx/PSHx: See Below SOCIAL HISTORY: See Below. PHYSICAL EXAM: GENERAL: Patient is in no acute distress. Quite sleepy. Somewhat disheveled and close appear quite dirty. HEENT: No acute trauma, normocephalic atraumatic, mucous membranes moist, no nasal congestion. NECK: No stridor, no adenopathy, no meningismus, trachea is midline. LUNGS: Clear to auscultation bilaterally, no wheeze, no rhonchi, breath sounds equal. HEART: Without murmurs gallops or rubs, regular rate and rhythm. ABDOMEN: Soft, nontender, bowel sounds positive, no peritonitis. EXTREMITIES: No cyanosis, full range of motion of all the joints without pain or difficulty, no signs for acute trauma. NEUROLOGIC: Somnolent but awakes to voice. Moves all extremities. SKIN: No rash, no jaundice, no diaphoresis. DIFFERENTIAL DIAGNOSIS: CO2 retention, acidosis, electrolyte imbalance, CHF, pneumonia, anemia, sepsis or bacteremia, among others. EMERGENCY DEPARTMENT COURSE/PROCEDURES: Prior/Outside records reviewed: Recent discharge summary. ECG per my interpretation: Indication was shortness of breath. The ECG shows a normal sinus rhythm with a rate of 91. There is significant baseline artifact. There is some ST depression seen in the inferior and lateral leads. No ST elevation. There is a potential old lateral infarct. QTc was 487. Compared to an ECG from 15 May 2023, the ST changes in the inferior and lateral leads appears slightly worse. Continuous Cardiac Monitoring per my interpretation: An order was placed for continuous cardiac monitoring. The monitor shows a rate of 92 with normal sinus rhythm. Critical Care Note: I have personally spent 51 minutes of critical care time in the direct management of this patient. This includes bedside care, interpretation of diagnostic studies, and testing, discussion with consultants, patient, and family members, and other required patient management activities. This 51 minutes is in excess of all separately billable procedures. MEDICAL DECISION MAKING: There is no leukocytosis. The patient is anemic with a lower platelet count, however, both the anemia and thrombocytopenia have been documented before. ABG shows a mild acidosis, no CO2 retention, no hypoxia. Renal panel testing shows uremia with a BUN of 159. Creatinine is quite high at 17.93. Potassium was normal. Lactic acid level was not elevated making severe sepsis less likely. Phosphorus and magnesium were both high consistent with her missed dialysis sessions. No concerning liver enzyme elevation. ECG shows a normal sinus rhythm, no obvious ischemia. Cardiac enzyme testing x1 is somewhat elevated, this could be secondary to just her renal disease or potentially cardiac injury. Her troponin today is less than it was with her more recent testing. COVID test returned positive however, she was not noted to be positive last month and this is likely a residual result. Influenza and RSV test were negative. Chest film per my review does show CHF, no pneumonia. On exam, the patient was somnolent. She did awake to voice. She was not febrile or toxic. She was not hypoxic. The patient was found to be in heart failure, she was uremic. She was fluid overloaded. She is in need of a hospital stay and will need dialysis tomorrow morning. I did speak with Dr. Esteban of nephrology, the patient is okay to stay at our facility for dialysis tomorrow. The patient was ordered for BiPAP to help with the CHF and to help with her breathing. She did not receive any IV fluids. I did speak with the patient and case management, the on-call hospitalist was consulted. The CHF, the uremia explain her presentation today. DISPOSITION: Patient's presentation and findings warrant a hospital stay. Past Med/Surg History Medical History Abnormal chest xray Acute alteration in mental status Acute electrocardiogram changes Acute hyperkalemia Acute non-ST elevation myocardial infarction (NSTEMI) Anemia due to end stage renal disease Anemia of chronic disease Asthma rare res inh use Bipolar disorder Depression with anxiety Dialysis patient SATURDAY/SAT/SATURDAY AT [facility] DM2 (diabetes mellitus, type 2) diet controlled no meds DVT prophylaxis Elevated lactic acid level Elevated troponin Encephalopathy ESRD (end stage renal disease) on dialysis Facial fracture Fistula right arm (currently being used) and left arm FSGS (focal segmental glomerulosclerosis) DX INITIALLY 2012 (CAUSING ESRD 2012) GERD (gastroesophageal reflux disease) GI bleed History of abnormal cervical Papanicolaou smear HTN (hypertension) Metabolic encephalopathy Peripheral neuropathy Pneumonia Prolonged QT interval no cardio Pulmonary edema Rectal bleeding reason for up coming colonoscopy Renal failure (ARF), acute on chronic Restless leg syndrome Status post fall last fallNovember 2022 > nasal fx / knee pain, no surgery for either injury > resolved per pt report Symptomatic anemia Thrombocytopenia Tobacco abuse Transaminitis Surgical History AVF (arteriovenous fistula) bilat upper arms ---currently using right for dialysis H/O eye surgery LASER SURGERY LEFT H/O hernia repair ABDOMINAL WALL H/O knee surgery LEFT KNEE X 2 H/O tubal ligation H/O: X 2 History of cardiac cath 2016 NO STENTS History of cholecystectomy History of colonoscopy History of surgery (~09/09/20) perm cath > since removed History of surgery left arm d/t clot in arm from AV fistula use @ [facility] History of tooth extraction three TOOTH Kidney transplant recipient 2013 AT [facility] Family History Grandmother Hx of CABG Mother Diabetes Father Crohn's disease Grandfather (Maternal) Diabetes Uncle Diabetes Grandmother (Maternal) Family history of reaction to anesthesia difficulty waking with colonoscopy Social History Smoking Status: Current every day smoker Tobacco Type: Cigarettes Cigarettes Per Day: 1 ppd; Second Hand Exposure: No; Do You Dip or Chew Tobacco: No; Preferred Language: Chinese Communication Ability: Unable Puppet Master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 Beliefs That Will Affect Care: None marital status: Single Current Living Situation: Family Current Living Situation Comment: Lives with fiance and kids How many Children do You have: 3 Feels Safe at Home: Yes Assistive Devices: None Allergies Allergies Allergy/AdvReac Type Severity Reaction Status Date / Time cefaclor Allergy Intermediate Rash Verified 03/29/23 09:22 Cephalosporins Allergy Intermediate Rash Verified 03/29/23 09:22 amoxicillin AdvReac Intermediate VOMITING Verified 03/29/23 09:22 clavulanic acid AdvReac Intermediate VOMITING Verified 03/29/23 09:22 Home Meds Home Medications Medication Instructions Recorded Confirmed hydroxyzine HCl 25 mg tablet 25 mg PO Q6 PRN Anxiety 04/21/20 05/11/23 calcium acetate(phosphat bind) 667 2,001 mg PO TIDM 06/22/20 05/11/23 mg capsule albuterol sulfate 90 mcg/actuation 2 puff inhalation QID PRN 08/01/20 05/11/23 aerosol inhaler Shortness Of Breath sertraline 100 mg tablet 150 mg PO QAM 08/02/20 05/11/23 amlodipine 10 mg tablet 10 mg PO HS 08/10/20 05/11/23 vitamin B complex-vitamin C-folic 1 tab PO QAM 08/10/20 05/11/23 acid 0.8 mg tablet (Renal Vitamin) cinacalcet 30 mg tablet (Sensipar) 60 mg PO QDD 03/06/21 05/11/23 lorazepam 0.5 mg tablet 0.5 mg PO Q8 PRN anxiety and 03/06/21 05/11/23 before dialysis medroxyprogesterone 150 mg/mL 150 mg IM Q90D 03/06/21 05/11/23 intramuscular suspension (Depo-Provera) gabapentin 400 mg capsule 400 mg PO AMHS 06/27/21 05/11/23 (Neurontin) dicyclomine 10 mg capsule 10 mg PO QID PRN .. 01/19/22 05/11/23 mometasone-formoterol HFA 200 2 puff inhalation BID 01/19/22 05/11/23 mcg-5 mcg/actuation aerosol inhaler (Dulera) omeprazole 20 mg capsule,delayed 20 mg PO QAM 01/19/22 05/11/23 release albuterol sulfate 2.5 mg/3 mL 2.5 mg inhalation Q4H PRN Wheezing 09/19/22 05/11/23 (0.083 %) solution for nebulization fluticasone propionate 50 2 spray intranasal DAILY PRN 09/19/22 05/11/23 mcg/actuation nasal Congestion spray,suspension (Flonase Allergy Relief) ondansetron HCl 4 mg tablet 4 mg PO Q6H PRN Nausea 09/19/22 05/11/23 trazodone 100 mg tablet 200 mg PO HS 09/19/22 05/11/23 varenicline 0.5 mg (11)-1 mg (42) 1 ea PO DIRECTED 01/02/23 05/11/23 tablets in a dose pack [facility] 1 dose PO HS 03/21/23 05/11/23 carbamazepine 200 mg 200 mg PO BID 03/21/23 05/11/23 tablet,extended release,12 hr (Tegretol XR) Previous Rx's Medication Instructions Recorded carvedilol 12.5 mg tablet 12.5 mg PO BID #60 tabs 01/10/23 Results & Data (ED) Vital Signs Vital Signs - 24 hr 06/07/23 18:53 06/07/23 22:19 06/07/23 22:36 Temperature 36.4 C L Temperature Source Oral Pulse Rate 93 H 90 Pulse Rate [Finger] 92 H Respiratory Rate 19 20 26 H Respiratory Effort / Characteristics Non-Labored Spontaneous Spontaneous Respiratory Depth Normal Normal Respiratory Pattern Regular Blood Pressure 173/48 H Blood Pressure [Left Arm] 170/89 H Blood Pressure Mean 89 Blood Pressure Mean [Left Arm] 116 Blood Pressure Position [Left Arm] Semi-fowlers Pulse Oximetry 95 92 96 Oxygen Delivery Method Room Air Fraction of Inspired Oxygen 40 Sepsis Recent Fever Within 48 Hours No Sepsis New/Unexplained Change in Mental Status No Sepsis Action Taken by Nursing No Action Required Home Medications Current Medication List: was personally reviewed by me Laboratory Data Attestation: I reviewed the patient's lab results. 06/07/23 21:50 06/07/23 21:50 Lab Results 06/07/23 06/07/23 06/07/23 Range/Units 20:53 21:50 21:50 WBC 8.67 (4.8-10.8) K/ul RBC 2.86 L (4.20-5.40) M/uL Hgb 9.7 L (12.0-16.0) g/dl Hct 29.3 L (37.0-47.0) % MCV 102.4 H (80.0-100.0) fL MCH 33.9 (25.0-34.0) pg MCHC 33.1 (32.0-36.0) g/dL RDW Std Deviation 62.6 H (36.4-46.3) fL RDW Coeff of Laith 16.5 H (11.5-14.5) % Plt Count 91 L (130-400) K/uL MPV 12.4 (9.4-12.4) fL Immature Gran % (Auto) 0.3 % Neut % (Auto) 78.4 % Lymph % (Auto) 11.2 % Marshall % (Auto) 8.2 % Eos % (Auto) 1.7 % Baso % (Auto) 0.2 % Neut # (Auto) 6.79 H (1.40-6.50) K/uL Lymph # (Auto) 0.97 L (1.20-3.40) K/uL Marshall # (Auto) 0.71 H (0.11-0.59) K/uL Eos # (Auto) 0.15 (0.00-0.50) K/uL Baso # (Auto) 0.02 (0.00-0.20) K/uL Immature Gran # (Auto) 0.03 (0.01-0.20) K/uL ABG pH (7.35-7.45) ABG pCO2 (35-46) mmHg ABG pO2 (80-95) mmHg ABG HCO3 (19-24) mmol/L ABG O2 Saturation (90-95) % ABG Base Excess (-9-1.8) mEq/L Sudhir Test (Pos) Oxygen Given Sodium 135 L (136-145) mmol/L Potassium 4.9 (3.5-5.1) mmol/L Chloride 91 L (98-107) mmol/L Carbon Dioxide 21 (21-32) mmol/L Anion Gap 23 H (3-11) BUN 159 H (6-23) mg/dl Creatinine 17.93 H* (0.6-1.2) mg/dl Est Cr Clr Drug Dosing 4.8 ml/min Est GFR ( Amer) 2.5 ml/min Est GFR (Non-Af Amer) 2.2 ml/min BUN/Creatinine Ratio 8.9 L (10-20) Glucose 175 H (70-99(Fasting)) mg/dl Lactate (0.4-2.0) mmol/L Calcium 9.5 (8.6-10.3) mg/dl Phosphorus 13.7 H (2.5-4.9) mg/dl Magnesium 2.6 H (1.7-2.4) mg/dl Total Bilirubin 0.7 (0.2-1.0) mg/dl AST 15 (13-39) U/L ALT 22 (7-52) U/L Alkaline Phosphatase 84 (34-104) U/L Troponin I High Sens 179.8 H* (0-14) pg/ml Total Protein 6.7 (6.0-8.3) gm/dl Albumin 4.1 (3.4-5.0) gm/dl Globulin 2.6 (2.5-4.0) gm/dl Albumin/Globulin Ratio 1.6 (0.9-2) SARS-CoV-2 (PCR) POSITIVE A* (Negative) Influenza Type A (PCR) Negative (Neg) Influenza Type B (PCR) Negative (Neg) RSV (RT-PCR) Negative (Neg) 06/07/23 06/07/23 Range/Units 23:03 23:51 WBC (4.8-10.8) K/ul RBC (4.20-5.40) M/uL Hgb (12.0-16.0) g/dl Hct (37.0-47.0) % MCV (80.0-100.0) fL MCH (25.0-34.0) pg MCHC (32.0-36.0) g/dL RDW Std Deviation (36.4-46.3) fL RDW Coeff of Laith (11.5-14.5) % Plt Count (130-400) K/uL MPV (9.4-12.4) fL Immature Gran % (Auto) % Neut % (Auto) % Lymph % (Auto) % Marshall % (Auto) % Eos % (Auto) % Baso % (Auto) % Neut # (Auto) (1.40-6.50) K/uL Lymph # (Auto) (1.20-3.40) K/uL Marshall # (Auto) (0.11-0.59) K/uL Eos # (Auto) (0.00-0.50) K/uL Baso # (Auto) (0.00-0.20) K/uL Immature Gran # (Auto) (0.01-0.20) K/uL ABG pH 7.29 L (7.35-7.45) ABG pCO2 43 (35-46) mmHg ABG pO2 178 H (80-95) mmHg ABG HCO3 21 (19-24) mmol/L ABG O2 Saturation > 100.0 H (90-95) % ABG Base Excess -5.7 (-9-1.8) mEq/L Sudhir Test Pos (Pos) Oxygen Given RA Sodium (136-145) mmol/L Potassium (3.5-5.1) mmol/L Chloride (98-107) mmol/L Carbon Dioxide (21-32) mmol/L Anion Gap (3-11) BUN (6-23) mg/dl Creatinine (0.6-1.2) mg/dl Est Cr Clr Drug Dosing ml/min Est GFR ( Amer) ml/min Est GFR (Non-Af Amer) ml/min BUN/Creatinine Ratio (10-20) Glucose (70-99(Fasting)) mg/dl Lactate 0.7 (0.4-2.0) mmol/L Calcium (8.6-10.3) mg/dl Phosphorus (2.5-4.9) mg/dl Magnesium (1.7-2.4) mg/dl Total Bilirubin (0.2-1.0) mg/dl AST (13-39) U/L ALT (7-52) U/L Alkaline Phosphatase (34-104) U/L Troponin I High Sens (0-14) pg/ml Total Protein (6.0-8.3) gm/dl Albumin (3.4-5.0) gm/dl Globulin (2.5-4.0) gm/dl Albumin/Globulin Ratio (0.9-2) SARS-CoV-2 (PCR) (Negative) Influenza Type A (PCR) (Neg) Influenza Type B (PCR) (Neg) RSV (RT-PCR) (Neg) Imaging Data Radiologist's Impression: Chest X-Ray 06/07/23 18:57 SINGLE VIEW CHEST CLINICAL HISTORY: Cough FINDINGS: A PA chest radiograph is compared to study dated 05/11/2023. Correlat ion is made with chest CT dated 03/20/2022. Stents project over the upper chest. The heart is enlarged. There is pulmonary vascular congestion. Bilateral airspace opacities likely represent interstitial edema Small pleural effusions are suspected.. No pneumothorax is seen. The bony thorax is grossly intact. Cholecystectomy clips are noted in the right upper quadrant. IMPRESSION: 1. Cardiomegaly with evidence of congestive failure. 2. Bilateral airspace opacities likely represent pulmonary edema. Correlate clinically for evidence of a superimposed pneumonitis. Radiographic follow-up to resolution is recommended. 3. Suspect small pleural effusions. ACT 112: Negative or not required by law. Electronically signed by: North Quintero M.D. 06/07/2023 8:14 PM Discharge Plan Visit Data Chief Complaint: Illness Stated Complaint: MISSED DIALYSIS, FALLS UNCONSCIOUS REGULARLY ED Provider: North Thomas Discharge Problem: SOB (shortness of breath), CHF (congestive heart failure), Acute uremia, Somnolence, Medical non-compliance, Elevated troponin, Dialysis patient Patient Disposition: Admitted As Inpatient Condition: Serious Forms Stand Alone Forms: [facility] [employer] Prescriptions Prescriptions: No Action calcium acetate(phosphat bind) 667 mg capsule 2,001 mg PO TIDM Rx Instructions: 3 tabs with meals sertraline 100 mg tablet 150 mg PO QAM Rx Instructions: 1 & 1/2 TABLET DOSE hydroxyzine HCl 25 mg tablet 25 mg PO Q6 PRN (Reason: Anxiety) albuterol sulfate 90 mcg/actuation HFA aerosol inhaler 2 puff INHALATION QID PRN (Reason: Shortness Of Breath) amlodipine 10 mg Tablet 10 mg PO HS Hold Instructions: Resume on 05/24/23. Resume if pressured >140 after taking Carvedilol Renal Vitamin 0.8 mg Tablet 1 tab PO QAM lorazepam 0.5 mg tablet 0.5 mg PO Q8 PRN (Reason: anxiety and before dialysis) medroxyprogesterone [Depo-Provera] 150 mg/mL suspension 150 mg IM Q90D cinacalcet [Sensipar] 30 mg Tablet 60 mg PO QDD Rx Instructions: Takes with evening meal gabapentin [Neurontin] 400 mg capsule 400 mg PO AMHS albuterol sulfate 2.5 mg /3 mL (0.083 %) Solution For Nebulization 2.5 mg INHALATION Q4H PRN (Reason: Wheezing) ondansetron HCl 4 mg Tablet 4 mg PO Q6H PRN (Reason: Nausea) trazodone 100 mg tablet 200 mg PO HS fluticasone propionate [Flonase Allergy Relief] 50 mcg/actuation [place],Suspension 2 spray INTRANASAL DAILY PRN (Reason: Congestion) Rx Instructions: administer into each nostril carbamazepine [Tegretol XR] 200 mg Tablet Extended Release 12 Hr 200 mg PO BID [facility] [place] 1 dose PO HS dicyclomine 10 mg capsule 10 mg PO QID PRN (Reason: ..) omeprazole 20 mg capsule,delayed release(DR/EC) 20 mg PO QAM Dulera 200-5 mcg/actuation HFA aerosol inhaler 2 puff INHALATION BID varenicline 0.5 mg (11)- 1 mg (42) tablets,dose pack 1 ea PO DIRECTED Rx Instructions: PER PT "DID NOT START YET". carvedilol 12.5 mg Tablet 12.5 mg PO BID Qty: 60 0RF Referrals Referrals: Adolph Aldridge MD [Primary Care Provider] -
[2023-06-07 23:07] LABS: Albumin Globulin Ratio 1.6 (0.9-2); Albumin Level 4.1 gm/dl (3.4-5.0); BUN Creatinine Ratio 8.9 (10-20); Bilirubin,Total 0.7 mg/dl (0.2-1.0); Calcium 9.5 mg/dl (8.6-10.3); Creatinine Clr Calc Pharmacy 4.8 ml/min; Est GFR (African American) 2.5 ml/min; Est GFR (Non-African American) 2.2 ml/min; Globulin 2.6 gm/dl (2.5-4.0); Magnesium 2.6 mg/dl (1.7-2.4); Phosphorus 13.7 mg/dl (2.5-4.9); Potassium 4.9 mmol/L (3.5-5.1); Total Protein 6.7 gm/dl (6.0-8.3); Troponin I High Sensitivity 179.8 pg/ml (0-14)
[2023-06-07 23:13] LABS: Base Excess ABG -5.7 mEq/L (-9-1.8); HCO3 ABG 21 mmol/L (19-24); Oxygen Saturation ABG > 100.0 % (90-95); PCO2 ABG 43 mmHg (35-46); PO2 ABG 178 mmHg (80-95); pH ABG 7.29 (7.35-7.45)
[2023-06-07 23:18] LABS: Allen Test Pos (Pos)
--- NOTE | 2023-06-08 04:16 | History & Physical Report ---
Date of Service June 08, 2023 Assessment & Plan (1) Somnolence: Plan: 37-year-old female with PMH DM type II, ESRD on HD MWF (history of failed renal transplant), HTN, bipolar disorder, history of DVT and PE no longer on anticoagulation, medical noncompliance, presents with missing dialysis 3-4 appointments and is somnolent. Somnolent Encephalopathy Missed dialysis Elevated BUN and creatinine possible cause of her drowsiness Plan for dialysis Monitor on telemetry floor COVID-19 She was positive last admission also We will continue COVID precaution End-stage renal disease on hemodialysis Missing dialysis Nephro consult Plan for dialysis today History of DVT and PE Seems currently no longer on anticoagulation CHF Mostly from missing dialysis Continue BiPAP Plan for dialysis Hypertension Coreg, amlodipine We will monitor the blood pressure Anxiety and depression Continue home medications COPD Continue home inhalers Diabetes Insulin sliding scale Follow HbA1c levels DVT prophylaxis SCDs for now Disposition Telemetry floor Full code History of Present Illness Chief Complaint: Missed Dialysis Primary Care Provider: Adolph Aldridge MD 37-year-old female with PMH DM type II, ESRD on HD MWF (history of failed renal transplant), HTN, bipolar disorder, history of DVT and PE no longer on anticoagulation, medical noncompliance, presents with missing dialysis 3-4 appointments. She was feeling sleepy. In the ER she is currently placed on BiPAP. Drowsy. Denies any chest pain no shortness of breath currently. Denies any headache. Denies any nausea. Denies cough. Denies fever. Denies any abdominal pain. Denies any diarrhea. She knows where she is, can tell her name and current month and year. Allergies Allergy/AdvReac Type Severity Reaction Status Date / Time cefaclor Allergy Intermediate Rash Verified 03/29/23 09:22 Cephalosporins Allergy Intermediate Rash Verified 03/29/23 09:22 amoxicillin AdvReac Intermediate VOMITING Verified 03/29/23 09:22 clavulanic acid AdvReac Intermediate VOMITING Verified 03/29/23 09:22 Home Medications Medication Instructions Recorded Confirmed Type albuterol sulfate 2.5 mg/3 mL 2.5 mg inhalation Q4H PRN 06/08/23 06/08/23 History (0.083 %) solution for nebulization Shortness Of Breath Or Wheezing albuterol sulfate 90 mcg/actuation 2 puff inhalation Q6H PRN 06/08/23 06/08/23 History aerosol inhaler Shortness Of Breath Or Wheezing amlodipine 10 mg tablet 10 mg PO HS 06/08/23 06/08/23 History calcium acetate(phosphat bind) 2,001 mg PO TIDM 06/08/23 06/08/23 History carbamazepine 200 mg tablet 200 mg PO BID 06/08/23 06/08/23 History carvedilol 12.5 mg tablet (Coreg) 12.5 mg PO BID 06/08/23 06/08/23 History cinacalcet 60 mg tablet 60 mg PO DAILY 06/08/23 06/08/23 History dicyclomine 10 mg capsule 10 mg PO QID PRN Abdominal Pain 06/08/23 06/08/23 History gabapentin 400 mg capsule 400 mg PO BID 06/08/23 06/08/23 History hydroxyzine HCl 25 mg tablet 25 mg PO Q6H PRN Anxiety 06/08/23 06/08/23 History lorazepam 0.5 mg tablet 0.5 mg PO TID PRN Anxiety 06/08/23 06/08/23 History mometasone-formoterol HFA 200 2 puff inhalation BID 06/08/23 06/08/23 History mcg-5 mcg/actuation aerosol inhaler (Dulera) omeprazole 20 mg capsule,delayed 20 mg PO DAILY 06/08/23 06/08/23 History release sertraline 100 mg tablet 150 mg PO DAILY 06/08/23 06/08/23 History trazodone 200 mg PO HS 06/08/23 06/08/23 History vitamin B complex-vitamin C-folic 1 tab PO DAILY 06/08/23 06/08/23 History acid 0.8 mg tablet (Renal-Rika) Past Med/Surg History Medical History Abnormal chest xray Acute alteration in mental status Acute electrocardiogram changes Acute hyperkalemia Acute non-ST elevation myocardial infarction (NSTEMI) Anemia due to end stage renal disease Anemia of chronic disease Asthma rare res inh use Bipolar disorder Depression with anxiety Dialysis patient SATURDAY/SAT/SATURDAY AT [facility] DM2 (diabetes mellitus, type 2) diet controlled no meds DVT prophylaxis Elevated lactic acid level Elevated troponin Encephalopathy ESRD (end stage renal disease) on dialysis Facial fracture Fistula right arm (currently being used) and left arm FSGS (focal segmental glomerulosclerosis) DX INITIALLY 2012 (CAUSING ESRD 2012) GERD (gastroesophageal reflux disease) GI bleed History of abnormal cervical Papanicolaou smear HTN (hypertension) Metabolic encephalopathy Peripheral neuropathy Pneumonia Prolonged QT interval no cardio Pulmonary edema Rectal bleeding reason for up coming colonoscopy Renal failure (ARF), acute on chronic Restless leg syndrome Status post fall last fall November 2022 > nasal fx / knee pain, no surgery for either injury > resolved per pt report Symptomatic anemia Thrombocytopenia Tobacco abuse Transaminitis Surgical History AVF (arteriovenous fistula) bilat upper arms ---currently using right for dialysis H/O eye surgery LASER SURGERY LEFT H/O hernia repair ABDOMINAL WALL H/O knee surgery LEFT KNEE X 2 H/O tubal ligation H/O: X 2 History of cardiac cath 2016 NO STENTS History of cholecystectomy History of colonoscopy History of surgery (~09/09/20) perm cath > since removed History of surgery left arm d/t clot in arm from AV fistula use @ [facility] History of tooth extraction three TOOTH Kidney transplant recipient 2013 AT [facility] Family History Grandmother Hx of CABG Mother Diabetes Father Crohn's disease Grandfather (Maternal) Diabetes Uncle Diabetes Grandmother (Maternal) Family history of reaction to anesthesia difficulty waking with colonoscopy Social History Smoking Status: Current every day smoker Tobacco Type: Cigarettes Cigarettes Per Day: 1 ppd; Second Hand Exposure: No; Do You Dip or Chew Tobacco: No; Tobacco Cessation Education Requested by Patient: No Hx Alcohol Use: No Hx Substance Use: No Preferred Language: Syriac Communication Ability: Effective Cable Dispatcher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 Beliefs That Will Affect Care: None marital status: Single Current Living Situation: Family Current Living Situation Comment: Lives with fiance and kids How many Children do You have: 3 Other Information That Helps Us Care for You: No Feels Safe at Home: Yes Safety Concerns: Feels Safe At This Time Assistive Devices: Oxygen - Continuous Review of Systems Review of Systems: Unobtainable due to reduced consciousness Physical Exam Physical Exam: General- Drowsy Head- atraumatic Eyes- PERRL. Neck- supple, no JVD,. Lungs- clear to auscultation mild bibasilar crackles Heart- regular rhythm; no murmur, no gallop. Abdomen- normal bowel sounds, soft, nontender, no distension. Extremities-mild pretibial edema, no erythema seen Neuro- Drowsy but oriented x 3; PERRL, no facial palsy; no dysarthria; obeys simple commands Skin- warm & dry Results & Data Results & Data Vital Signs (Past 12 Hours) Vital Signs Temp Pulse Pulse Resp BP BP Pulse Ox 06/08/23 03:01 85 21 99 06/07/23 22:36 90 26 H 96 06/07/23 22:19 92 H 20 170/89 H 92 06/07/23 18:53 36.4 C L 93 H 19 173/48 H 95 O2 Del Method FiO2 06/08/23 03:01 40 06/07/23 22:36 40 06/07/23 22:19 Room Air 06/07/23 18:53 Diagnostic Findings Laboratory Results WBC 8.67 K/ul (4.8-10.8) 06/07/23 21:50 RBC 2.86 M/uL (4.20-5.40) L 06/07/23 21:50 Hgb 9.7 g/dl (12.0-16.0) L 06/07/23 21:50 Hct 29.3 % (37.0-47.0) L 06/07/23 21:50 MCV 102.4 fL (80.0-100.0) H 06/07/23 21:50 MCH 33.9 pg (25.0-34.0) 06/07/23 21:50 MCHC 33.1 g/dL (32.0-36.0) 06/07/23 21:50 RDW Std Deviation 62.6 fL (36.4-46.3) H 06/07/23 21:50 RDW Coeff of Laith 16.5 % (11.5-14.5) H 06/07/23 21:50 Plt Count 91 K/uL (130-400) L 06/07/23 21:50 MPV 12.4 fL (9.4-12.4) 06/07/23 21:50 Immature Gran % (Auto) 0.3 % 06/07/23 21:50 Neut % (Auto) 78.4 % 06/07/23 21:50 Lymph % (Auto) 11.2 % 06/07/23 21:50 [place] % (Auto) 8.2 % 06/07/23 21:50 Eos % (Auto) 1.7 % 06/07/23 21:50 Baso % (Auto) 0.2 % 06/07/23 21:50 Neut # (Auto) 6.79 K/uL (1.40-6.50) H 06/07/23 21:50 Lymph # (Auto) 0.97 K/uL (1.20-3.40) L 06/07/23 21:50 [place] # (Auto) 0.71 K/uL (0.11-0.59) H 06/07/23 21:50 Eos # (Auto) 0.15 K/uL (0.00-0.50) 06/07/23 21:50 Baso # (Auto) 0.02 K/uL (0.00-0.20) 06/07/23 21:50 Immature Gran # (Auto) 0.03 K/uL (0.01-0.20) 06/07/23 21:50 ABG pH 7.29 (7.35-7.45) L 06/07/23 23:03 ABG pCO2 43 mmHg (35-46) 06/07/23 23:03 ABG pO2 178 mmHg (80-95) H 06/07/23 23:03 ABG HCO3 21 mmol/L (19-24) 06/07/23 23:03 ABG O2 Saturation > 100.0 % (90-95) H 06/07/23 23:03 ABG Base Excess -5.7 mEq/L (-9-1.8) 06/07/23 23:03 Sudhir Test Pos (Pos) 06/07/23 23:03 Oxygen Given RA 06/07/23 23:03 Sodium 135 mmol/L (136-145) L 06/07/23 21:50 Potassium 4.9 mmol/L (3.5-5.1) 06/07/23 21:50 Chloride 91 mmol/L (98-107) L 06/07/23 21:50 Carbon Dioxide 21 mmol/L (21-32) 06/07/23 21:50 Anion Gap 23 (3-11) H 06/07/23 21:50 BUN 159 mg/dl (6-23) H 06/07/23 21:50 Creatinine 17.93 mg/dl (0.6-1.2) H* 06/07/23 21:50 Est Cr Clr Drug Dosing 4.8 ml/min 06/07/23 21:50 Est GFR ( Amer) 2.5 ml/min 06/07/23 21:50 Est GFR (Non-Af Amer) 2.2 ml/min 06/07/23 21:50 BUN/Creatinine Ratio 8.9 (10-20) L 06/07/23 21:50 Glucose 175 mg/dl (70-99(Fasting)) H 06/07/23 21:50 Lactate 0.7 mmol/L (0.4-2.0) 06/07/23 23:51 Calcium 9.5 mg/dl (8.6-10.3) 06/07/23 21:50 Phosphorus 13.7 mg/dl (2.5-4.9) H 06/07/23 21:50 Magnesium 2.6 mg/dl (1.7-2.4) H 06/07/23 21:50 Total Bilirubin 0.7 mg/dl (0.2-1.0) 06/07/23 21:50 AST 15 U/L (13-39) 06/07/23 21:50 ALT 22 U/L (7-52) 06/07/23 21:50 Alkaline Phosphatase 84 U/L (34-104) 06/07/23 21:50 Troponin I High Sens 179.8 pg/ml (0-14) H* 06/07/23 21:50 Total Protein 6.7 gm/dl (6.0-8.3) 06/07/23 21:50 Albumin 4.1 gm/dl (3.4-5.0) 06/07/23 21:50 Globulin 2.6 gm/dl (2.5-4.0) 06/07/23 21:50 Albumin/Globulin Ratio 1.6 (0.9-2) 06/07/23 21:50 SARS-CoV-2 (PCR) POSITIVE (Negative) A* 06/07/23 20:53 Influenza Type A (PCR) Negative (Neg) 06/07/23 20:53 Influenza Type B (PCR) Negative (Neg) 06/07/23 20:53 RSV (RT-PCR) Negative (Neg) 06/07/23 20:53 Impressions Chest X-Ray 06/07/23 18:57 SINGLE VIEW CHEST CLINICAL HISTORY: Cough FINDINGS: A PA chest radiograph is compared to study dated 05/11/2023. Correlation is made with chest CT dated 03/20/2022. Stents project over the upper chest. The heart is enlarged. There is pulmonary vascular congestion. Bilateral airspace opacities likely represent interstitial edema Small pleural effusions are suspected.. No pneumothorax is seen. The bony thorax is grossly intact. Cholecystectomy clips are noted in the right upper quadrant. IMPRESSION: 1. Cardiomegaly with evidence of congestive failure. 2. Bilateral airspace opacities likely represent pulmonary edema. Correlate clinically for evidence of a superimposed pneumonitis. Radiographic follow-up to resolution is recommended. 3. Suspect small pleural effusions. ACT 112: Negative or not required by law. Electronically signed by: North Quintero M.D. 06/07/2023 8:14 PM ECG Additional Comments: ECG. Normal sinus rhythm rate of 91. Left anterior fascicle block. Code Status & VTE Plan VTE Prophylaxis Plan VTE Prophylaxis will be ordered: Yes
[2023-06-08] MEDS ORDERED: ACETAMINOPHEN 325 MG TAB PO PRN (05:03)
[2023-06-08] MEDS ORDERED: NITROGLYCERIN SL 0.4 MG/TAB TAB SL PRN (05:03)
[2023-06-08] MEDS ORDERED: ALBUTEROL 0.083% NEBU SOLN 3 ML VIAL INH PRN (05:03)
[2023-06-08] MEDS ORDERED: GLUCAGON FOR INJ 1 MG VIAL SQ PRN (05:03)
[2023-06-08] MEDS ORDERED: GLUCOSE 40% GEL 15 GM TUBE PO PRN (05:03)
[2023-06-08] MEDS ORDERED: ALBUTEROL HFA 8 GM INHALER INH PRN (05:03)
[2023-06-08] MEDS ORDERED: DEXTROSE 50% 50 ML SYRINGE IV PRN (05:03)
[2023-06-08] MEDS ORDERED: hydrOXYzine HCl 25 MG TAB PO PRN (05:03)
[2023-06-08] MEDS ORDERED: GLUCOSE 10 TAB/TUBE PO PRN (05:03)
[2023-06-08] MEDS ORDERED: DICYCLOMINE HCL 10 MG CAP PO PRN (05:03)
[2023-06-08] MEDS ORDERED: CARBOHYDRATES FOR HYPOGLYCEMIA PO PRN (05:03)
[2023-06-08 06:37] LABS: Basophils # (auto) 0.02 K/uL (0.00-0.20); Basophils % (auto) 0.3 %; Eosinophils # (auto) 0.08 K/uL (0.00-0.50); Eosinophils % (auto) 1.1 %; Hematocrit (blood only) 26.9 % (37.0-47.0); Hemoglobin 9.1 g/dl (12.0-16.0); Immature Granulocytes # (auto) 0.03 K/uL (0.01-0.20); Immature Granulocytes % (auto) 0.4 %; Lymphocytes # (auto) 0.66 K/uL (1.20-3.40); Lymphocytes % (auto) 9.2 %; Mean Corpuscular Hemoglobin 34.1 pg (25.0-34.0); Mean Corpuscular Hgb Conc 33.8 g/dL (32.0-36.0); Mean Corpuscular Volume 100.7 fL (80.0-100.0); Mean Platelet Volume 12.4 fL (9.4-12.4); Neutrophils # (auto) 5.89 K/uL (1.40-6.50); Platelet Count 75 K/uL (130-400); RDW Coefficient of Variation 16.3 % (11.5-14.5); RDW Standard Deviation 60.8 fL (36.4-46.3); Red Blood Count 2.67 M/uL (4.20-5.40); White Blood Count 7.18 K/ul (4.8-10.8)
[2023-06-08 06:45] LABS: Calcium 9.3 mg/dl (8.6-10.3); Magnesium 2.8 mg/dl (1.7-2.4); Potassium 5.2 mmol/L (3.5-5.1)
[2023-06-08] MEDS ORDERED: SODIUM CHLORIDE 0.9% 1,000 ML IV PRN (07:09)
[2023-06-08] MEDS ORDERED: HEPARIN SOD (PORCINE) 1000 UNIT/ML IV ONE (07:09)
[2023-06-08] MEDS ORDERED: EPOETIN ALFA 20,000 UNITS/ML VIAL IV ONE (07:09)
[2023-06-08] MEDS ORDERED: HEPARIN SOD (PORCINE) 1000 UNIT/ML IV SCH (07:15)
[2023-06-08 07:22] LABS: BUN Creatinine Ratio 9.5 (10-20); Creatinine Clr Calc Pharmacy 4.7 ml/min; Est GFR (African American) 2.5 ml/min; Est GFR (Non-African American) 2.1 ml/min
--- NOTE | 2023-06-08 07:30 | Nephrology Consultation ---
Date of Consultation June 08, 2023 Assessment & Plan (1) Dialysis patient: ESRD w/ volume overload after missing 6 of prior 10 OP dialysis treatments, including 4 just prior to admission. -HD today longer tx versus shorter today and another tomorrow > on track for 3.5 hr tx today >eval in am for further tx; else next tx on 06/10 -as aggressive UF as tolerated > will attempt 3.5L -aggressive EMILY dosing to support hgb which is low at 9.1 -thrombocytopenia is new/significant > will do heparin bolus only and monitor plts >agree w/ continuing cinacalcet, phoslo, renal vitamin at OP doses Care coordinated w/ Mik Thomas and Jasmina. (2) CHF (congestive heart failure): d/t nonadherence to dialysis regimen > HD today >continue BP meds for best control > amlodipine, coreg (3) Medical non-compliance: extremely nonadherent d/t numerous psychosocial issues w/ extensive support as OP -continue to work w/ pt on support/motivation History of Present Illness Reason for Consultation: ESRD missed dialysis Requesting Physician: Dr Morgan Attending Physician: Elvis Freedman MD History of Present Illness 37 y/o F whom I'm asked to see for ESRD care was sent by her OP dialysis unit at my direction to ER after missing 4 OP treatments. Her last OP treatment was 05/29; she also skipped 05/27 and 05/22 txs. PMH includes DM2, HTN, gerd, hx of failed renal transplant, bipolar disorder/anxiety, restless leg syndrome, tobacco abuse. She is very nonadherent to OP treatments d/t uncontrolled anxiety or/and oversleeping and/or other psychosocial issues. She's had covid in the past month and Covid PCR was again positive on presentation. On arrival last evening she was lethargic and volume overloaded and placed on CPAP/BiPAP to help w/ breathing. Tells me she is tired and has abdominal pain. States she fell yesterday at di alysis and because of this has contusion right brow. No headache no vision changes no sob, chest pain, palpitations, cough, n/v/d, rash. Denies other falls or presyncopal sx. no edema. She is anuric. Allergies Allergy/AdvReac Type Severity Reaction Status Date / Time cefaclor Allergy Intermediate Rash Verified 03/29/23 09:22 Cephalosporins Allergy Intermediate Rash Verified 03/29/23 09:22 amoxicillin AdvReac Intermediate VOMITING Verified 03/29/23 09:22 clavulanic acid AdvReac Intermediate VOMITING Verified 03/29/23 09:22 Home Medications Medication Instructions Recorded Confirmed Type albuterol sulfate 2.5 mg/3 mL 2.5 mg inhalation Q4H PRN 06/08/23 06/08/23 History (0.083 %) solution for nebulization Shortness Of Breath Or Wheezing albuterol sulfate 90 mcg/actuation 2 puff inhalation Q6H PRN 06/08/23 06/08/23 History aerosol inhaler Shortness Of Breath Or Wheezing amlodipine 10 mg tablet 10 mg PO HS 06/08/23 06/08/23 History calcium acetate(phosphat bind) 2,001 mg PO TIDM 06/08/23 06/08/23 History carbamazepine 200 mg tablet 200 mg PO BID 06/08/23 06/08/23 History carvedilol 12.5 mg tablet (Coreg) 12.5 mg PO BID 06/08/23 06/08/23 History cinacalcet 60 mg tablet 60 mg PO DAILY 06/08/23 06/08/23 History dicyclomine 10 mg capsule 10 mg PO QID PRN Abdominal Pain 06/08/23 06/08/23 History gabapentin 400 mg capsule 400 mg PO BID 06/08/23 06/08/23 History hydroxyzine HCl 25 mg tablet 25 mg PO Q6H PRN Anxiety 06/08/23 06/08/23 History lorazepam 0.5 mg tablet 0.5 mg PO TID PRN Anxiety 06/08/23 06/08/23 History mometasone-formoterol HFA 200 2 puff inhalation BID 06/08/23 06/08/23 History mcg-5 mcg/actuation aerosol inhaler (Dulera) omeprazole 20 mg capsule,delayed 20 mg PO DAILY 06/08/23 06/08/23 History release sertraline 100 mg tablet 150 mg PO DAILY 06/08/23 06/08/23 History trazodone 200 mg PO HS 06/08/23 06/08/23 History vitamin B complex-vitamin C-folic 1 tab PO DAILY 06/08/23 06/08/23 History acid 0.8 mg tablet (Renal-Rika) Patient History Medical History Abnormal chest xray Acute alteration in mental status Acute electrocardiogram changes Acute hyperkalemia Acute non-ST elevation myocardial infarction (NSTEMI) Anemia due to end stage renal disease Anemia of chronic disease Asthma rare res inh use Bipolar disorder Depression with anxiety Dialysis patient SATURDAY/SAT/SATURDAY AT [facility] DM2 (diabetes mellitus, type 2) diet controlled no meds DVT prophylaxis Elevated lactic acid level Elevated troponin Encephalopathy ESRD (end stage renal disease) on dialysis Facial fracture Fistula right arm (currently being used) and left arm FSGS (focal segmental glomerulosclerosis) DX INITIALLY 2012 (CAUSING ESRD 2012) GERD (gastroesophageal reflux disease) GI bleed History of abnormal cervical Papanicolaou smear HTN (hypertension) Metabolic encephalopathy Peripheral neuropathy Pneumonia Prolonged QT interval no cardio Pulmonary edema Rectal bleeding reason for up coming colonoscopy Renal failure (ARF), acute on chronic Restless leg syndrome Status post fall last fall November 2022 > nasal fx / knee pain, no surgery for either injury > resolved per pt report Symptomatic anemia Thrombocytopenia Tobacco abuse Transaminitis Surgical History AVF (arteriovenous fistula) bilat upper arms ---currently using right for dialysis H/O eye surgery LASER SURGERY LEFT H/O hernia repair ABDOMINAL WALL H/O knee surgery LEFT KNEE X 2 H/O tubal ligation H/O: X 2 History of cardiac cath 2016 NO STENTS History of cholecystectomy History of colonoscopy History of surgery (~09/09/20) perm cath > since removed History of surgery left arm d/t clot in arm from AV fistula use @ [facility] History of tooth extraction three TOOTH Kidney transplant recipient 2013 AT [facility] Family History Grandmother Hx of CABG Mother Diabetes Father Crohn's disease Grandfather (Maternal) Diabetes Uncle Diabetes Grandmother (Maternal) Family history of reaction to anesthesia difficulty waking with colonoscopy Social History Smoking Status: Current every day smoker Tobacco Type: Cigarettes Cigarettes Per Day: 1 ppd; Second Hand Exposure: No; Do You Dip or Chew Tobacco: No; Tobacco Cessation Education Requested by Patient: No Hx Alcohol Use: No Hx Substance Use: No Preferred Language: Nepalese Communication Ability: Effective 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 [employer]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 Beliefs That Will Affect Care: None marital status: Single Current Living Situation: Family Current Living Situation Comment: Lives with fiance and kids How many Children do You have: 3 Other Information That Helps Us Care for You: No Feels Safe at Home: Yes Safety Concerns: Feels Safe At This Time Assistive Devices: Oxygen - Continuous Review of Systems Review of Systems: All systems reviewed & are unremarkable except as noted in HPI & below Physical Exam Constitutional: well developed and well nourished (on 2L 02nc); no acute distress Eyes: EOM intact bilaterally ENMT: Ears: no external ear abnormality Nose: no external nose abnormality Mouth: + dry oral mucous membranes Neck: no nuchal rigidity Respiratory: normal respiratory effort Auscultation: + diminished lung sounds, + rhonchi and + wheezes; no crackles Cardiovascular: RRR, no murmur, no edema Extremities: + AV fistula Gastrointestinal (Abdomen): Inspection/Auscultation: normal bowel sounds Percussion/Palpation: abdomen soft; abdomen nontender Musculoskeletal: Extremities: strength 5/5 throughout Skin: no rashes, warm and dry Trauma: + contusion (R brow) Neurologic: sandy, fluent speech, no tremor Psychiatric: Orientation: alert and oriented x 3 Results & Data Vital Signs (Past 12 Hours) Vital Signs Pulse Pulse Resp BP Pulse Ox Pulse Ox O2 Del Method 06/08/23 05:03 99 06/08/23 04:41 83 17 133/89 100 CPAP 06/08/23 03:01 85 21 99 06/07/23 22:36 90 26 H 96 06/07/23 22:19 92 H 20 170/89 H 92 Room Air O2 Del Method FiO2 06/08/23 05:03 CPAP 06/08/23 04:41 06/08/23 03:01 40 06/07/23 22:36 40 06/07/23 22:19 Laboratory Results 06/08/23 06:15 06/08/23 06:15 Diagnostic Findings CXR (I personally reviewed the images and agree with report) 1. Cardiomegaly with evidence of congestive failure. 2. Bilateral airspace opacities likely represent pulmonary edema. Correlate clinically for evidence of a superimposed pneumonitis. Radiographic follow-up to resolution is recommended. 3. Suspect small pleural effusions. (2) CHF (congestive heart failure) Heart failure chronicity: acute Heart failure type: unspecified Qualified Code(s): I50.9 - Heart failure, unspecified
[2023-06-08] MEDS ORDERED: INFLUENZA VIRUS QUADRIVALENT VACCINE (IIV4) 0.5 ML SYR IM ONE (09:12)
[2023-06-08] MEDS: CINACALCET HCL 30 MG TAB PO SCH (09:13)
[2023-06-08] MEDS: GABAPENTIN 400 MG CAP PO SCH ×2 (09:13→21:41)
[2023-06-08] MEDS: SERTRALINE HCL 50 MG TABLET PO SCH (09:13)
[2023-06-08] MEDS: CALCIUM ACETATE 667 MG CAP/TAB PO SCH ×3 (09:14→17:07)
[2023-06-08] MEDS: FLUTICASONE/VILANTEROL 200/25MCG 14 PUFFS/INHALER INH SCH (09:14)
[2023-06-08] MEDS: carBAMazepine 200 MG TABLET PO SCH ×2 (09:14→21:41)
[2023-06-08] MEDS: PANTOprazole 40 MG TAB PO SCH (09:14)
[2023-06-08] MEDS: carvediloL 12.5 MG TAB PO SCH ×2 (09:14→21:39)
[2023-06-08] MEDS: NEPHROCAPS PO SCH (09:14)
[2023-06-08] MEDS: INSULIN ASPART PER UNIT CHARGE SC SCH ×4 (09:55→21:42)
[2023-06-08 11:16] LABS: Estimated Average Glucose 126 mg/dl
--- NOTE | 2023-06-08 15:02 | Dialysis Progress Note ---
Date of Service June 08, 2023 Assessment & Plan (1) Dialysis patient: Plan: ESRD w/ volume overload after missing 6 of prior 10 OP dialysis treatments, including 4 just prior to admission. -HD today > on track to complete 3.5 hr tx today >eval in am for further tx; else next tx on 06/10 -as aggressive UF as tolerated > tolerated 3.9 L -aggressive EMILY dosing to support hgb which is low at 9.1; UF should also help support hemoglobin as well -thrombocytopenia is new/significant > will do heparin bolus only and monitor plts > Continue cinacalcet, phoslo, renal vitamin at OP doses Basic metabolic panel at least every 48 hours while in house but will need to consider CBC daily given thrombocytopenia (2) CHF (congestive heart failure): Plan: d/t nonadherence to dialysis regimen > HD today >continue BP meds for best control > amlodipine, coreg; blood pressure currently well controlled (3) Medical non-compliance: Plan: extremely nonadherent d/t numerous psychosocial issues w/ extensive support as OP -continue to work w/ pt on support/motivation Admission and Anticipated Discharge Date Admission Date: June 08, 2023 Subjective Seen at the end of dialysis treatment which she tolerated well. Got 3.9 L off after we extended treatment time and UF goal. Complains of ongoing abdominal pain no shortness of breath no focal numbness or weakness she had some cramping during the treatment but fell asleep and was able to complete it Review of Systems Review of Systems: All systems reviewed & are unremarkable except as noted in Subjective Physical Exam Constitutional: well developed, + ill appearing (on 2L NC) and cooperative; no acute distress and no altered mental status Eyes: EOM intact bilaterally ENMT: Ears: no external ear abnormality Nose: no external nose abnormality Mouth: + dry oral mucous membranes Neck: no nuchal rigidity Respiratory: normal respiratory effort Auscultation: + diminished lung sounds, + rhonchi and + wheezes; no crackles Cardiovascular: RRR, no murmur, no edema Extremities: + AV fistula Gastrointestinal (Abdomen): Inspection/Auscultation: normal bowel sounds Percussion/Palpation: abdomen soft; abdomen nontender Musculoskeletal: Extremities: strength 5/5 throughout Skin: no rashes, warm and dry Trauma: + contusion (R brow) Psychiatric: Orientation: alert and oriented x 3 Results & Data Vital Signs (Past 12 Hours) Vital Signs Temp Pulse Pulse Pulse Resp BP BP 06/08/23 14:42 36.5 C 67 20 116/73 06/08/23 14:27 36.3 C L 63 133/69 06/08/23 14:00 62 95/53 L 06/08/23 13:30 63 100/60 06/08/23 13:00 66 124/58 L 06/08/23 12:30 69 129/67 06/08/23 12:00 70 125/73 06/08/23 11:30 75 167/97 H 06/08/23 11:00 75 170/96 H 06/08/23 10:36 36.8 C 75 178/97 H 06/08/23 10:30 36.8 C 78 06/08/23 10:20 71 18 171/94 H 06/08/23 09:00 36.9 C 77 20 177/104 H 06/08/23 08:56 81 18 177/104 H 06/08/23 07:34 73 06/08/23 07:16 73 20 06/08/23 05:03 06/08/23 04:41 83 17 133/89 06/08/23 03:01 85 21 Pulse Ox Pulse Ox O2 Del Method O2 Del Method O2 Flow Rate FiO2 06/08/23 14:42 100 Nasal Cannula 2 06/08/23 14:27 06/08/23 14:00 06/08/23 13:30 06/08/23 13:00 06/08/23 12:30 06/08/23 12:00 06/08/23 11:30 06/08/23 11:00 06/08/23 10:36 06/08/23 10:30 06/08/23 10:20 100 Nasal Cannula 2 06/08/23 09:00 100 Nasal Cannula 2 06/08/23 08:56 100 Nasal Cannula 2 06/08/23 07:34 06/08/23 07:16 97 30 06/08/23 05:03 99 CPAP 06/08/23 04:41 100 CPAP 06/08/23 03:01 99 40 Laboratory Results Reviewed (2) CHF (congestive heart failure) Heart failure chronicity: acute Heart failure type: unspecified Qualified Code(s): I50.9 - Heart failure, unspecified
--- NOTE | 2023-06-08 16:08 | Hospitalist Progress Note ---
Date of Service June 08, 2023 Assessment & Plan (1) ESRD (end stage renal disease) on dialysis: (2) Medical non-compliance: (3) Anemia in ESRD (end-stage renal disease): (4) CHF (congestive heart failure): (5) HTN (hypertension): (6) Depression: Plan 37-year-old female with history of ESRD on hemodialysis MWF, history of failed renal transplant, diabetes mellitus, hypertension, bipolar disorder, history of DVT PE no longer on anticoagulation, medical noncompliance who presented with somnolence related to missing multiple dialysis sessions Somnolence/encephalopathy due to missing dialysis with uremia- still somnolent but easily arousable and able to have good conversation while awake. Volume overload due to noncompliance with hemodialysis-apparently patient missed 6 out of prior to an outpatient dialysis treatment including for just prior to admission. ESRD on hemodialysis MWF, failed renal transplant-s/p dialysis by nephrology today. Plans for dialysis tomorrow and the day after noted. Anemia of CKD-hemoglobin stable around baseline of 9. Thrombocytopenia- Will monitor and repeat in a.m. Hyperkalemia, hypermagnesemia, hyperphosphatemia-getting dialysis today. On PhosLo. Recheck in a.m. CHF from missing dialysis-chest x-ray with cardiomegaly with evidence of CHF and pulm edema. Radiograph follow-up to resolution is recommended. Consider BiPAP at bedtime and as needed with sleep Hypertension-continue Coreg, amlodipine. Monitor BP. Anxiety/depression/mood disorder-continue home medication Zoloft, trazodone, carbamazepine COPD-continue home inhalers. Diabetes mellitus-A1c 6%, unreliable in setting of ESRD. Continue sliding scale insulin. Adjust as indicated Elevated troponin-likely related to ESRD. Doubt ACS COVID-19 positive-patient has been COVID-19 positive for month. No fever. Doubt active ongoing infection. Disposition-continue current level of care. Patient will need inpatient dialysis for next few days per nephrology. DVT prophylaxis- consider sc heparin if Plts remain stable Admission and Anticipated Discharge Date Admission Date: June 08, 2023 Subjective Patient seen and examined at bedside. States she feels tired and sleepy. Denies any other issues. No fever, chills, CP, N/V. Review of Systems Review of Systems: All systems reviewed & are unremarkable except as noted in Subjective Physical Exam Physical Exam: General: Somnolent, Ill-appearing, not in acute distress HEENT: EOMI, ADELA, Chest: Diminished breath sounds with some rales CVS: Regular rate and rhythm, normal heart sounds, no murmur Abdomen: Soft, non tender, not distended, normal bowel sounds Neuro: Somnolent but easily arousable Extremities: AV fistula + Results & Data Results & Data Vital Signs (Past 12 Hours) Vital Signs Temp Pulse Pulse Pulse Resp BP BP 06/08/23 15:45 66 06/08/23 14:42 36.5 C 67 20 116/73 06/08/23 14:27 36.3 C L 63 133/69 06/08/23 14:00 62 95/53 L 06/08/23 13:30 63 100/60 06/08/23 13:00 66 124/58 L 06/08/23 12:30 69 129/67 06/08/23 12:00 70 125/73 06/08/23 11:30 75 167/97 H 06/08/23 11:00 75 170/96 H 06/08/23 10:36 36.8 C 75 178/97 H 06/08/23 10:30 36.8 C 78 06/08/23 10:20 71 18 171/94 H 06/08/23 09:00 36.9 C 77 20 177/104 H 06/08/23 08:56 81 18 177/104 H 06/08/23 07:34 73 06/08/23 07:16 73 20 06/08/23 05:03 06/08/23 04:41 83 17 133/89 Pulse Ox Pulse Ox O2 Del Method O2 Del Method O2 Flow Rate FiO2 06/08/23 15:45 06/08/23 14:42 100 Nasal Cannula 2 06/08/23 14:27 06/08/23 14:00 06/08/23 13:30 06/08/23 13:00 06/08/23 12:30 06/08/23 12:00 06/08/23 11:30 06/08/23 11:00 06/08/23 10:36 06/08/23 10:30 06/08/23 10:20 100 Nasal Cannula 2 06/08/23 09:00 100 Nasal Cannula 2 06/08/23 08:56 100 Nasal Cannula 2 06/08/23 07:34 06/08/23 07:16 97 30 06/08/23 05:03 99 CPAP 06/08/23 04:41 100 CPAP (4) CHF (congestive heart failure) Heart failure chronicity: acute Heart failure type: unspecified Qualified Code(s): I50.9 - Heart failure, unspecified
[2023-06-08] MEDS: LORazepam 0.5 MG TAB PO PRN (16:35)
[2023-06-08] MEDS: amLODIPine BESYLATE 5 MG TAB PO SCH (21:40)
[2023-06-08] MEDS: traZODone HCL 100 MG TAB PO SCH (21:42)
[2023-06-09] MEDS: LORazepam 0.5 MG TAB PO PRN (02:10)
[2023-06-09 06:55] LABS: Hematocrit (blood only) 25.9 % (37.0-47.0); Hemoglobin 8.5 g/dl (12.0-16.0); Mean Corpuscular Hemoglobin 33.5 pg (25.0-34.0); Mean Corpuscular Hgb Conc 32.8 g/dL (32.0-36.0); Mean Platelet Volume 12.2 fL (9.4-12.4); Platelet Count 64 K/uL (130-400); RDW Standard Deviation 61.3 fL (36.4-46.3); Red Blood Count 2.54 M/uL (4.20-5.40); White Blood Count 4.73 K/ul (4.8-10.8)
--- NOTE | 2023-06-09 07:20 | Communication Note ---
Date of Service: June 09, 2023 Remove contact/isolation precautions.
[2023-06-09 07:23] LABS: BUN Creatinine Ratio 6.9 (10-20); Calcium 8.9 mg/dl (8.6-10.3); Creatinine Clr Calc Pharmacy 8.4 ml/min; Est GFR (Non-African American) 4.3 ml/min; Phosphorus 7.8 mg/dl (2.5-4.9)
--- NOTE | 2023-06-09 07:26 | Electrocardiogram Report ---
Test Reason : Blood Pressure : / mmHG Vent. Rate : 091 BPM Atrial Rate : 091 BPM P-R Int : 150 ms QRS Dur : 102 ms QT Int : 396 ms P-R-T Axes : 036 -55 021 degrees QTc Int : 487 ms Poor data quality, interpretation may be adversely affected Normal sinus rhythm Left anterior fascicular block Possible Lateral infarct (cited on or before 12-MAY-2023) Abnormal ECG When compared with ECG of 15-MAY-2023 06:23, Vent. rate has increased BY 30 BPM Left anterior fascicular block is now Present Confirmed by Reji Gregorio ([id number]) on 06/09/2023 7:26:31 AM Referred By: REFERRED SELF Confirmed By:Reji Gregorio
[2023-06-09] MEDS: INSULIN ASPART PER UNIT CHARGE SC SCH ×4 (08:00→20:52)
[2023-06-09] MEDS: SERTRALINE HCL 50 MG TABLET PO SCH (08:45)
[2023-06-09] MEDS: carBAMazepine 200 MG TABLET PO SCH ×2 (08:45→21:01)
[2023-06-09] MEDS: CALCIUM ACETATE 667 MG CAP/TAB PO SCH ×3 (08:45→16:43)
[2023-06-09] MEDS: PANTOprazole 40 MG TAB PO SCH (08:45)
[2023-06-09] MEDS: NEPHROCAPS PO SCH (08:45)
[2023-06-09] MEDS: GABAPENTIN 400 MG CAP PO SCH ×2 (08:45→21:03)
[2023-06-09] MEDS: carvediloL 12.5 MG TAB PO SCH ×2 (08:46→21:03)
[2023-06-09] MEDS: FLUTICASONE/VILANTEROL 200/25MCG 14 PUFFS/INHALER INH SCH (08:46)
--- NOTE | 2023-06-09 09:43 | Hospitalist Progress Note ---
Date of Service June 09, 2023 Assessment & Plan (1) ESRD (end stage renal disease) on dialysis: (2) Medical non-compliance: (3) Anemia in ESRD (end-stage renal disease): (4) CHF (congestive heart failure): (5) HTN (hypertension): (6) Depression: Plan 37-year-old female with history of ESRD on hemodialysis MWF, history of failed renal transplant, diabetes mellitus, hypertension, bipolar disorder, history of DVT PE no longer on anticoagulation, medical noncompliance who presented with somnolence related to missing multiple dialysis sessions Somnolence/encephalopathy due to missing dialysis with uremia-somnolence resolved, awake alert today Volume overload due to noncompliance with hemodialysis-apparently patient missed 6 out of prior to an outpatient dialysis treatment including for just prior to admission. ESRD on hemodialysis MWF, failed renal transplant-s/p dialysis by nephrology yesterday, further dialysis plan per nephrology Anemia of CKD-hemoglobin overall stable around baseline of 9 Thrombocytopenia-platelets 64 today, Will monitor and repeat in a.m. Hyperkalemia-resolved Hyperphosphatemia-improved. On PhosLo. Recheck in a.m. CHF from missing dialysis-chest x-ray with cardiomegaly with evidence of CHF and pulm edema. Radiograph follow-up to ensure resolution is recommended. Consider BiPAP hs and prn. Hypertension-continue Coreg, amlodipine. Monitor BP. Anxiety/depression/mood disorder-continue home medication Zoloft, trazodone, carbamazepine COPD-continue home inhalers. Diabetes mellitus-A1c 6%, unreliable in setting of ESRD. Continue sliding scale insulin. Adjust as indicated Elevated troponin-likely related to ESRD. Doubt ACS COVID-19 positive-patient has been COVID-19 positive for month. No fever. Doubt active ongoing infection. Disposition-continue current level of care. Patient will need inpatient dialysis for next few days per nephrology. DVT prophylaxis- consider sc heparin if Plts remain stable Admission and Anticipated Discharge Date Admission Date: June 08, 2023 Subjective Patient was seen and examined at bedside. She is awake and alert today, no more somnolent. Denies any issues. No fever, chills, chest pain, shortness of nausea or vomiting. She is hungry and waiting for breakfast. She states she has not used any BiPAP or supplemental oxygen since yesterday. Review of Systems Review of Systems: All systems reviewed & are unremarkable except as noted in Subjective Physical Exam Physical Exam: General: Sitting comfortably in bed, not in acute distress on room air HEENT: EOMI, ADELA, MMM Chest: Fair breath sounds bilaterally with some rales CVS: Regular rate and rhythm, normal heart sounds, no murmur Abdomen: Soft, non tender, not distended, normal bowel sounds Neuro: Awake, alert, oriented, conversing appropriately, nonfocal Extremities: AV fistula + on bilateral arms. Ecchymosis on left forearm Psych: Calm, cooperative Results & Data Results & Data Vital Signs (Past 12 Hours) Vital Signs Temp Pulse Pulse Resp BP Pulse Ox O2 Del Method 06/09/23 08:22 36.6 C 65 18 122/67 90 Room Air 06/09/23 07:18 67 06/08/23 23:00 36.7 C 62 16 113/69 97 Room Air Laboratory Results Short CBC 06/09/23 Range/Units 06:11 WBC 4.73 L (4.8-10.8) K/ul Hgb 8.5 L (12.0-16.0) g/dl Hct 25.9 L (37.0-47.0) % Plt Count 64 L (130-400) K/uL BMP 06/09/23 06:11 Sodium 139 Potassium 4.0 D Chloride 98 Carbon Dioxide 27 BUN 70 H D Creatinine 10.20 H* D Glucose 119 H Calcium 8.9 Medications Administered Current Inpatient Medications Acetaminophen (Acetaminophen 325 Mg Tab) 650 mg PO Q4H PRN PRN Reason: Pain or Fever Stop: 07/08/23 05:02 Albuterol (Albuterol 0.083% Nebu Soln 3 Ml Vial) 2.5 mg INH Q4H PRN; Protocol PRN Reason: Shortness Of Breath Or Wheezing Stop: 07/08/23 05:02 Albuterol (Albuterol Hfa 8 Gm Inhaler) 2 puffs INH Q6H PRN PRN Reason: Shortness Of Breath Or Wheezin Stop: 07/08/23 05:02 Amlodipine Besylate (Amlodipine Besylate 5 Mg Tab) 10 mg PO HS NIKKI Stop: 07/08/23 20:59 Last Admin: 06/08/23 21:40 Dose: 10 mg Calcium Acetate (Calcium Acetate 667 Mg Cap/Tab) 2,001 mg PO TIDM NIKKI Stop: 07/08/23 07:59 Last Admin: 06/09/23 08:45 Dose: 2,001 mg Carbamazepine (Carbamazepine 200 Mg Tablet) 200 mg PO BID NIKKI Stop: 07/08/23 08:59 Last Admin: 06/09/23 08:45 Dose: 200 mg Carvedilol (Carvedilol 12.5 Mg Tab) 12.5 mg PO BID NIKKI Stop: 07/08/23 08:59 Last Admin: 06/09/23 08:46 Dose: 12.5 mg Cinacalcet (Cinacalcet Hcl 30 Mg Tab) 60 mg PO DAILY NIKKI Stop: 07/08/23 08:59 Last Admin: 06/08/23 09:13 Dose: 60 mg Dextrose (Dextrose 50% 50 Ml Syringe) 25 - 50 ml IV UD PRN; Protocol PRN Reason: Hypoglycemia Protocol Stop: 07/08/23 05:02 Dicyclomine HCl (Dicyclomine Hcl 10 Mg Cap) 10 mg PO QID PRN PRN Reason: Abdominal Pain Stop: 07/08/23 05:02 Last Admin: 06/08/23 21:39 Dose: 10 mg Fluticasone/Vilanterol (Fluticasone/Vilanterol 200/25mcg 14 Puffs/Inhaler) 1 puffs INH DAILY NIKKI Stop: 07/08/23 08:59 Last Admin: 06/09/23 08:46 Dose: 1 puffs Gabapentin (Gabapentin 400 Mg Cap) 400 mg PO BID NIKKI Stop: 07/08/23 08:59 Last Admin: 06/09/23 08:45 Dose: 400 mg Glucagon (Glucagon For Inj 1 Mg Vial) 1 mg SQ UD PRN; Protocol PRN Reason: Hypoglycemia Protocol Stop: 07/08/23 05:02 Glucose (Glucose 10 Tab/Tube) 4 - 8 tab PO UD PRN; Protocol PRN Reason: Hypoglycemia Treatment Stop: 07/08/23 05:02 Glucose (Glucose 40% Gel 15 Gm Tube) 15 - 30 gm PO UD PRN; Protocol PRN Reason: Hypoglycemia Protocol Stop: 07/08/23 05:02 Hydroxyzine HCl (Hydroxyzine Hcl 25 Mg Tab) 25 mg PO Q6H PRN PRN Reason: Anxiety Stop: 07/08/23 05:02 Insulin Aspart (Insulin Aspart Per Unit Charge) 0 units SC ACHS NIKKI Stop: 07/08/23 07:29 Last Admin: 06/09/23 08:00 Dose: Not Given Lorazepam (Lorazepam 0.5 Mg Tab) 0.5 mg PO TID PRN PRN Reason: Anxiety Stop: 07/08/23 05:02 Last Admin: 06/09/23 02:10 Dose: 0.5 mg Miscellaneous (Carbohydrates For Hypoglycemia ) 15 - 30 gm PO UD PRN PRN Reason: Hypoglycemia Protocol Stop: 07/08/23 05:02 Nitroglycerin (Nitroglycerin Sl 0.4 Mg/Tab Tab) 0.4 mg SL Q5M PRN PRN Reason: Chest Pain Stop: 07/08/23 05:02 Pantoprazole Sodium (Pantoprazole 40 Mg Tab) 40 mg PO DAILY NIKKI Stop: 07/08/23 08:59 Last Admin: 06/09/23 08:45 Dose: 40 mg Sertraline HCl (Sertraline Hcl 50 Mg Tablet) 150 mg PO DAILY NIKKI Stop: 07/08/23 08:59 Last Admin: 06/09/23 08:45 Dose: 150 mg Trazodone HCl (Trazodone Hcl 100 Mg Tab) 200 mg PO HS NIKKI Stop: 07/08/23 20:59 Last Admin: 06/08/23 21:42 Dose: 200 mg Vitamin B Complex/Folic Acid (Nephrocaps) 1 cap PO DAILY NIKKI Stop: 07/08/23 08:59 Last Admin: 06/09/23 08:45 Dose: 1 cap (4) CHF (congestive heart failure) Heart failure chronicity: acute Heart failure type: unspecified Qualified Code(s): I50.9 - Heart failure, unspecified
[2023-06-09] MEDS: CINACALCET HCL 30 MG TAB PO SCH (10:22)
[2023-06-09] MEDS ORDERED: SODIUM CHLORIDE 0.9% 1,000 ML IV PRN (13:47)
--- NOTE | 2023-06-09 13:48 | Nephrology Progress Note ---
Date of Service June 09, 2023 Assessment & Plan (1) Dialysis patient: Plan: ESRD w/ volume overload after missing 6 of prior 10 OP dialysis treatments, including 4 just prior to admission. -HD done here 06/08 w/ 3.9 L ultrafiltration No further hemodialysis needed today next tx on 06/10 -as aggressive UF as tolerated -aggressive EMILY dosing to support hgb which is low at 8.5; UF should also help support hemoglobin as well -thrombocytopenia is new/significant > will do heparin bolus only and monitor plts > Continue cinacalcet, phoslo, renal vitamin at OP doses Basic metabolic panel at least every 48 hours while in house but will need to consider CBC daily given thrombocytopenia (2) CHF (congestive heart failure): Plan: d/t nonadherence to dialysis regimen > HD today >continue BP meds for best control > amlodipine, coreg; blood pressure currently well controlled (3) Medical non-compliance: Plan: extremely nonadherent d/t numerous psychosocial issues w/ extensive support as OP -continue to work w/ pt on support/motivation Admission and Anticipated Discharge Date Admission Date: June 08, 2023 Subjective tolerated HD well eysterday; no sob including not exertional, no no/v. +++fatigue, lethargy. states "I'm bored" Review of Systems Review of Systems: All systems reviewed & are unremarkable except as noted in Subjective Physical Exam Constitutional: well developed, well nourished (on RA today), + ill appearing (on 2L NC), cooperative and + lethargic (doses off repeatedly in visit); no acute distress and no altered mental status Eyes: EOM intact bilaterally ENMT: Ears: no external ear abnormality Nose: no external nose abnormality Mouth: + dry oral mucous membranes Neck: no nuchal rigidity Respiratory: normal respiratory effort Auscultation: + diminished lung sounds and + wheezes; no crackles and no rhonchi Cardiovascular: RRR, no murmur, no edema Extremities: + AV fistula Gastrointestinal (Abdomen): Inspection/Auscultation: normal bowel sounds Percussion/Palpation: abdomen soft; abdomen nontender Musculoskeletal: Extremities: strength 5/5 throughout Skin: no rashes, warm and dry Trauma: + contusion (R brow and L shoulder) Psychiatric: Orientation: alert and oriented x 3 Results & Data Vital Signs (Past 12 Hours) Vital Signs Temp Pulse Pulse Resp BP Pulse Ox O2 Del Method 06/09/23 12:35 36.5 C 63 18 143/80 H 96 Room Air 06/09/23 08:22 36.6 C 65 18 122/67 90 Room Air 06/09/23 07:18 67 Laboratory Results 06/09/23 06:11 06/09/23 06:11 (2) CHF (congestive heart failure) Heart failure chronicity: acute Heart failure type: unspecified Qualified Code(s): I50.9 - Heart failure, unspecified
[2023-06-09] MEDS: amLODIPine BESYLATE 5 MG TAB PO SCH (21:01)
[2023-06-09] MEDS: traZODone HCL 100 MG TAB PO SCH (21:02)
[2023-06-10] MEDS ORDERED: EPOETIN ALFA 20,000 UNITS/ML VIAL IV ONE (07:00)
[2023-06-10] MEDS ORDERED: SODIUM CHLORIDE 0.9% 1,000 ML IV PRN (07:00)
[2023-06-10] MEDS ORDERED: HEPARIN SOD (PORCINE) 1000 UNIT/ML IV ONE (07:00)
--- NOTE | 2023-06-10 07:18 | Ultrasound Report ---
LEFT UPPER EXTREMITY VENOUS DOPPLER ULTRASOUND CLINICAL HISTORY: left lower arm edema. dvt? COMPARISON STUDY: Left upper extremity venous Doppler ultrasound January 23, 2022.. TECHNIQUE: Sonography of the venous system of the left upper extremity was performed. Sonography of t he left upper extremity AV fistula/graft was performed. FINDINGS: The left internal jugular, subclavian, brachial, basilic, cephalic, radial and ulnar veins were patent. No venous thrombus was identified within the left upper extremity. The left cephalic vei n graft appears patent. AV fistula within the left upper extremity also appears patent. IMPRESSION: 1. No deep venous thrombus within the left upper extremity. 2. Patent left upper extremity graft and AV fistula. ACT 112: Negative or not required by law. Electronically signed by: Sebastian Mcclain M.D. 06/10/2023 7:17 AM
--- NOTE | 2023-06-10 08:06 | Hospitalist Progress Note ---
Date of Service June 10, 2023 Assessment & Plan (1) ESRD (end stage renal disease) on dialysis: (2) Medical non-compliance: (3) Anemia in ESRD (end-stage renal disease): (4) CHF (congestive heart failure): (5) HTN (hypertension): (6) Depression: Plan 37-year-old female with history of ESRD on hemodialysis MWF, history of failed renal transplant, diabetes mellitus, hypertension, bipolar disorder, history of DVT/PE no longer on anticoagulation, medical noncompliance who presented with somnolence related to missing multiple dialysis sessions. Somnolence/encephalopathy due to missing dialysis with uremia somnolence previously resolved pt somnolent once more. Continue to monitor mental status Volume overload due to noncompliance with hemodialysis Reportedly patient missed 6 out of prior 10 outpatient dialysis treatment including just prior to admission. ESRD on hemodialysis MWF, failed renal transplant s/p dialysis by nephrology 06/10 further dialysis plan per nephrology Anemia of CKD hemoglobin overall stable around baseline of 9 Thrombocytopenia Platelets in range of 80-100s Stable Hyperkalemia resolved Hyperphosphatemia improved On PhosLo CHF from missing dialysis chest x-ray with cardiomegaly with evidence of CHF and pulm edema Radiograph follow-up to ensure resolution is recommended Consider BiPAP hs and prn. Hypertension continue Coreg, amlodipine. Monitor BP. Anxiety/depression/mood disorder continue home medication Zoloft, trazodone, carbamazepine COPD continue home inhalers. Diabetes mellitus A1c 6%, unreliable in setting of ESRD. Continue sliding scale insulin. Adjust as indicated Elevated troponin likely related to ESRD. Doubt ACS COVID-19 positive patient has been COVID-19 positive for month Currently asymptomatic Diet: Dialysis/renal, fluid restriction DVT prophylaxis: SCDs in setting of thrombocytopenia Dispo: Home once cleared by nephrology, previously followed with [facility] for dialysis Admission and Anticipated Discharge Date Admission Date: June 08, 2023 Subjective Pt seen while at dialysis. Was somnolent, arousable but falls back asleep quite easily. Notes that she was having back pain before falling asleep once more. Review of Systems Review of Systems: All systems reviewed & are unremarkable except as noted in Subjective Physical Exam Physical Exam: General: Somnolent. No acute distress Skin: No noted rashes or bruises Psych: mood and affect could not be determined Neuro: Somnolent HEENT: NC/AT Chest: Nontender to palpation. CV: RRR Resp: Breath sounds clear bilaterally Abdomen: Soft, nontender, nondistended. Results & Data Results & Data Vital Signs (Past 12 Hours) Vital Signs Temp Pulse Pulse Pulse Resp BP Pulse Ox 06/10/23 02:22 36.9 C 64 16 120/92 96 06/09/23 21:56 63 06/09/23 22:51 36.8 C 63 16 143/77 H 96 06/09/23 21:00 65 146/84 H O2 Del Method 06/10/23 02:22 Room Air 06/09/23 21:56 06/09/23 22:51 Room Air 06/09/23 21:00 (4) CHF (congestive heart failure) Heart failure chronicity: acute Heart failure type: unspecified Qualified Code(s): I50.9 - Heart failure, unspecified
[2023-06-10] MEDS: INSULIN ASPART PER UNIT CHARGE SC SCH ×4 (08:20→20:45)
[2023-06-10] MEDS: CALCIUM ACETATE 667 MG CAP/TAB PO SCH ×4 (08:22→17:32)
[2023-06-10] MEDS: GABAPENTIN 400 MG CAP PO SCH ×2 (08:25→20:40)
[2023-06-10] MEDS: FLUTICASONE/VILANTEROL 200/25MCG 14 PUFFS/INHALER INH SCH (08:26)
[2023-06-10] MEDS: PANTOprazole 40 MG TAB PO SCH (08:26)
[2023-06-10] MEDS: CINACALCET HCL 30 MG TAB PO SCH (08:27)
[2023-06-10] MEDS: NEPHROCAPS PO SCH (08:27)
[2023-06-10] MEDS: SERTRALINE HCL 50 MG TABLET PO SCH (08:28)
[2023-06-10] MEDS: LORazepam 0.5 MG TAB PO PRN (08:38)
[2023-06-10 09:34] LABS: Basophils # (auto) 0.02 K/uL (0.00-0.20); Basophils % (auto) 0.4 %; Eosinophils % (auto) 1.8 %; Hematocrit (blood only) 27.8 % (37.0-47.0); Immature Granulocytes # (auto) 0.02 K/uL (0.01-0.20); Immature Granulocytes % (auto) 0.4 %; Lymphocytes % (auto) 12.8 %; Mean Corpuscular Hemoglobin 33.5 pg (25.0-34.0); Mean Corpuscular Hgb Conc 32.4 g/dL (32.0-36.0); Mean Corpuscular Volume 103.3 fL (80.0-100.0); Mean Platelet Volume 12.1 fL (9.4-12.4); Monocytes # (auto) 0.43 K/uL (0.11-0.59); Monocytes % (auto) 7.9 %; Neutrophils # (auto) 4.19 K/uL (1.40-6.50); Neutrophils % (auto) 76.7 %; Platelet Count 80 K/uL (130-400); RDW Coefficient of Variation 15.9 % (11.5-14.5); RDW Standard Deviation 60.5 fL (36.4-46.3); Red Blood Count 2.69 M/uL (4.20-5.40); White Blood Count 5.46 K/ul (4.8-10.8)
[2023-06-10 10:00] LABS: BUN Creatinine Ratio 6.4 (10-20); Calcium 8.6 mg/dl (8.6-10.3); Creatinine Clr Calc Pharmacy 7.3 ml/min; Est GFR (African American) 4.3 ml/min; Est GFR (Non-African American) 3.7 ml/min; Magnesium 2.5 mg/dl (1.7-2.4); Phosphorus 8.6 mg/dl (2.5-4.9); Potassium 4.3 mmol/L (3.5-5.1)
--- NOTE | 2023-06-10 10:35 | Dialysis Progress Note ---
Date of Service June 10, 2023 Assessment & Plan Admission and Anticipated Discharge Date Admission Date: June 08, 2023 Subjective Assessment & Plan (1) Dialysis patient: Plan: ESRD w/ volume overload after missing 6 of prior 10 OP dialysis treatments, including 4 just prior to admission. HD today--So far no issues. BP and AVF fine. She is sleeping. thrombocytopenia is new/significant > will do heparin bolus only and monitor plts. Overnight PLT went up a bit and so did hgb--so good. Continue cinacalcet, phoslo, renal vitamin at OP doses next HD is on Saturday (2) CHF (congestive heart failure): Plan: d/t nonadherence to dialysis regimen HD today continue BP meds for best control > amlodipine, coreg; blood pressure currently well controlled (3) Medical non-compliance: Plan: extremely nonadherent d/t numerous psychosocial issues w/ extensive support as OP continue to work w/ pt on support/motivation Subjective Seen During dialysis treatment which she tolerated well. Sleeping very soundly. Bp, AVF fine. No issues with UF so far. Review of Systems Review of Systems: All systems reviewed & are unremarkable except as noted in Subjective Physical Exam Constitutional: well developed, cooperative; no acute distress and no altered mental status Eyes: EOM intact bilaterally ENMT: Ears: no external ear abnormality Nose: no external nose abnormality Mouth: + dry oral mucous membranes Neck: no nuchal rigidity Respiratory: normal respiratory effort Auscultation: + diminished lung sounds, + rhonchi and + wheezes; no crackles Cardiovascular: RRR, no murmur, no edema Extremities: + AV fistula Gastrointestinal (Abdomen): Inspection/Auscultation: normal bowel sounds Percussion/Palpation: abdomen soft; abdomen nontender Musculoskeletal: Extremities: strength 5/5 throughout Skin: no rashes, warm and dry Trauma: + contusion (R brow) Psychiatric: Orientation: alert and oriented x 3 Results & Data Vital Signs (Past 12 Hours) Vital Signs Temp Pulse Resp BP Pulse Ox O2 Del Method 06/10/23 02:22 36.9 C 64 16 120/92 96 Room Air 06/09/23 22:51 36.8 C 63 16 143/77 H 96 Room Air
[2023-06-10] MEDS: carvediloL 12.5 MG TAB PO SCH ×2 (14:59→20:39)
[2023-06-10] MEDS: carBAMazepine 200 MG TABLET PO SCH ×2 (15:00→20:39)
[2023-06-10] MEDS: amLODIPine BESYLATE 5 MG TAB PO SCH (20:38)
[2023-06-10] MEDS: traZODone HCL 100 MG TAB PO SCH ×2 (21:54→22:16)
[2023-06-11 07:26] LABS: Basophils # (auto) 0.03 K/uL (0.00-0.20); Basophils % (auto) 0.6 %; Eosinophils # (auto) 0.12 K/uL (0.00-0.50); Eosinophils % (auto) 2.4 %; Hematocrit (blood only) 29.7 % (37.0-47.0); Hemoglobin 9.6 g/dl (12.0-16.0); Immature Granulocytes # (auto) 0.03 K/uL (0.01-0.20); Immature Granulocytes % (auto) 0.6 %; Lymphocytes # (auto) 0.67 K/uL (1.20-3.40); Lymphocytes % (auto) 13.2 %; Mean Corpuscular Hgb Conc 32.3 g/dL (32.0-36.0); Mean Corpuscular Volume 105.3 fL (80.0-100.0); Monocytes # (auto) 0.44 K/uL (0.11-0.59); Monocytes % (auto) 8.7 %; Neutrophils # (auto) 3.77 K/uL (1.40-6.50); Neutrophils % (auto) 74.5 %; Platelet Count 89 K/uL (130-400); RDW Coefficient of Variation 15.7 % (11.5-14.5); RDW Standard Deviation 60.1 fL (36.4-46.3); Red Blood Count 2.82 M/uL (4.20-5.40); White Blood Count 5.06 K/ul (4.8-10.8)
[2023-06-11 07:44] LABS: Albumin Globulin Ratio 1.4 (0.9-2); Albumin Level 3.7 gm/dl (3.4-5.0); BUN Creatinine Ratio 4.4 (10-20); Bilirubin,Total 0.6 mg/dl (0.2-1.0); Calcium 8.5 mg/dl (8.6-10.3); Creatinine Clr Calc Pharmacy 13.5 ml/min; Est GFR (African American) 9.3 ml/min; Globulin 2.7 gm/dl (2.5-4.0); Magnesium 2.2 mg/dl (1.7-2.4); Phosphorus 5.5 mg/dl (2.5-4.9); Total Protein 6.4 gm/dl (6.0-8.3)
[2023-06-11] MEDS: CALCIUM ACETATE 667 MG CAP/TAB PO SCH ×2 (07:57→13:25)
[2023-06-11] MEDS: INSULIN ASPART PER UNIT CHARGE SC SCH ×2 (07:57→12:20)
[2023-06-11 08:47] LABS: Base Excess VBG 4.5 mEq/L; HCO3 VBG 28 mmol/L; Oxygen Saturation VBG 95.4 %; PCO2 VBG 39 mmHg (38-50); PO2 VBG 66 mmHg; pH VBG 7.47 (7.36-7.41)
[2023-06-11] MEDS: carvediloL 12.5 MG TAB PO SCH (10:13)
[2023-06-11] MEDS: carBAMazepine 200 MG TABLET PO SCH (10:13)
[2023-06-11] MEDS: GABAPENTIN 400 MG CAP PO SCH (10:13)
[2023-06-11] MEDS: CINACALCET HCL 30 MG TAB PO SCH (10:14)
[2023-06-11] MEDS: FLUTICASONE/VILANTEROL 200/25MCG 14 PUFFS/INHALER INH SCH (10:14)
[2023-06-11] MEDS: NEPHROCAPS PO SCH (10:15)
[2023-06-11] MEDS: SERTRALINE HCL 50 MG TABLET PO SCH (10:15)
[2023-06-11] MEDS: PANTOprazole 40 MG TAB PO SCH (10:16)
--- NOTE | 2023-06-11 15:50 | Discharge Summary ---
Discharge Summary Date of Service June 11, 2023 Admission HPI Per Admitting Provider 37-year-old female with PMH DM type II, ESRD on HD MWF (history of failed renal transplant), HTN, bipolar disorder, history of DVT and PE no longer on anticoagulation, medical noncompliance, presents with missing dialysis 3-4 appointments. She was feeling sleepy. In the ER she is currently placed on BiPAP. Drowsy. Denies any chest pain no shortness of breath currently. Denies any headache. Denies any nausea. Denies cough. Denies fever. Denies any abdominal pain. Denies any diarrhea. She knows where she is, can tell her name and current month and year. Principal Dx & Hospital Course #1 = Principal Diagnosis (1) ESRD (end stage renal disease) on dialysis: (2) Medical non-compliance: (3) Anemia in ESRD (end-stage renal disease): (4) CHF (congestive heart failure): (5) HTN (hypertension): (6) Depression: Plan 37-year-old female with history of ESRD on hemodialysis MWF, history of failed renal transplant, diabetes mellitus, hypertension, bipolar disorder, history of DVT/PE no longer on anticoagulation, medical noncompliance who presented with somnolence related to missing multiple dialysis sessions. Somnolence/encephalopathy due to missing dialysis with uremia somnolence previously resolved pt somnolent once more. Continue to monitor mental status Volume overload due to noncompliance with hemodialysis Reportedly patient missed 6 out of prior 10 outpatient dialysis treatment i ncluding just prior to admission. ESRD on hemodialysis MWF, failed renal transplant s/p dialysis by nephrology 06/10 further dialysis plan per nephrology Anemia of CKD hemoglobin overall stable around baseline of 9 Thrombocytopenia Platelets in range of 80-100s Stable Hyperkalemia resolved Hyperphosphatemia improved On PhosLo CHF from missing dialysis chest x-ray with cardiomegaly with evidence of CHF and pulm edema Radiograph follow-up to ensure resolution is recommended Consider BiPAP hs and prn. Hypertension continue Coreg, amlodipine. Monitor BP. Anxiety/depression/mood disorder continue home medication Zoloft, trazodone, carbamazepine COPD continue home inhalers. Diabetes mellitus A1c 6%, unreliable in setting of ESRD. Continue sliding scale insulin. Adjust as indicated Elevated troponin likely related to ESRD. Doubt ACS COVID-19 positive patient has been COVID-19 positive for month Currently asymptomatic Diet: Dialysis/renal, fluid restriction DVT prophylaxis: SCDs in setting of thrombocytopenia Dispo: Home once cleared by nephrology, previously followed with [facility] for dialysis Discharge Exam General: Somnolent. No acute distress Skin: No noted rashes or bruises Psych: mood and affect could not be determined Neuro: Somnolent HEENT: NC/AT Chest: Nontender to palpation. CV: RRR Resp: Breath sounds clear bilaterally Abdomen: Soft, nontender, nondistended. Updated Medication List Medication Instructions Recorded Confirmed Type albuterol sulfate 2.5 mg/3 mL 2.5 mg inhalation Q4H PRN 06/08/23 06/08/23 History (0.083 %) solution for nebulization Shortness Of Breath Or Wheezing albuterol sulfate 90 mcg/actuation 2 puff inhalation Q6H PRN 06/08/23 06/08/23 History aerosol inhaler Shortness Of Breath Or Wheezing amlodipine 10 mg tablet 10 mg PO HS 06/08/23 06/08/23 History calcium acetate(phosphat bind) 2,001 mg PO TIDM 06/08/23 06/08/23 History carbamazepine 200 mg tablet 200 mg PO BID 06/08/23 06/08/23 History carvedilol 12.5 mg tablet (Coreg) 12.5 mg PO BID 06/08/23 06/08/23 History cinacalcet 60 mg tablet 60 mg PO DAILY 06/08/23 06/08/23 History dicyclomine 10 mg capsule 10 mg PO QID PRN Abdominal Pain 06/08/23 06/08/23 History gabapentin 400 mg capsule 400 mg PO BID 06/08/23 06/08/23 History hydroxyzine HCl 25 mg tablet 25 mg PO Q6H PRN Anxiety 06/08/23 06/08/23 History lorazepam 0.5 mg tablet 0.5 mg PO TID PRN Anxiety 06/08/23 06/08/23 History mometasone-formoterol HFA 200 2 puff inhalation BID 06/08/23 06/08/23 History mcg-5 mcg/actuation aerosol inhaler (Dulera) omeprazole 20 mg capsule,delayed 20 mg PO DAILY 06/08/23 06/08/23 History release sertraline 100 mg tablet 150 mg PO DAILY 06/08/23 06/08/23 History trazodone 200 mg PO HS 06/08/23 06/08/23 History vitamin B complex-vitamin C-folic 1 tab PO DAILY 06/08/23 06/08/23 History acid 0.8 mg tablet (Renal-Rika) Hospital Stay Data Consultations 06/07/23 22:41 ED Decision to Admit Stat 06/08/23 08:00 Consult Nephrology Routine Diagnostic Imagining Performed 06/09/23 22:01 US venous doppler UE LT Routine Discharge Instructions Given to Patient (Per Discharging Provider) Alexandra, You were admitted and received dialysis while hospitalized. We are discharging you home. Please keep your appointments for dialysis moving forward so that you can remain as healthy as you can. After discharge we recommend that you also keep close follow up with your primary care provider and your merchandising specialist. Please also take all your medications as prescribed. It was a pleasure taking care of you while you were here. Please take care of yourself.
[2023-06-12] MEDS ORDERED: EPOETIN ALFA 20,000 UNITS/ML VIAL IV ONE (07:00)
[2023-06-12] MEDS ORDERED: SODIUM CHLORIDE 0.9% 1,000 ML IV PRN (07:00)
== END 2023-06-11 17:01 | disposition home or self-care (01) | DRG 640 ==
LOC: ED 18:49 → EDINP 06-08 03:20 → SUATTDRO 06-08 03:20 → EDINP 06-08 05:04 → 2E 06-08 14:24

== ENCOUNTER 2023-08-29 19:12 | Observation (INO) ==
--- NOTE | 2023-08-29 20:11 | Emergency Department Note ---
History of Present Illness General Chief complaint: Cardiac Assessment Stated complaint: CHEST PAIN, LEG ISSUES Time Seen by Provider: 08/29/23 20:00 Source: patient, RN notes reviewed and old records reviewed (I did review an old record/discharge summary from 06-07-2023 when she was admitted for similar complaints) Mode of arrival: ambulatory History of Present Illness Maximum Pain Intensity: 10 This patient is a 37-year-old noncompliant dialysis patient who comes in after missing dialysis since last Saturday she said she did not have her phone. Since that she felt short of breath and nausea denies she is not bleeding anywhere she has had a headache and bodyaches. No cough. She has had some chest discomfort at times. Home Medications Medication Instructions Recorded Confirmed Type albuterol sulfate 2.5 mg/3 mL 2.5 mg inhalation Q4H PRN 06/08/23 08/29/23 History (0.083 %) solution for nebulization Shortness Of Breath Or Wheezing albuterol sulfate 90 mcg/actuation 2 puff inhalation Q6H PRN 06/08/23 08/29/23 History aerosol inhaler Shortness Of Breath Or Wheezing carbamazepine 200 mg tablet 200 mg PO AMPM 06/08/23 08/29/23 History carvedilol 12.5 mg tablet (Coreg) 12.5 mg PO BID 06/08/23 08/29/23 History gabapentin 400 mg capsule 400 mg PO AMHS 06/08/23 08/29/23 History hydroxyzine HCl 25 mg tablet 25 mg PO Q6H PRN Anxiety 06/08/23 08/29/23 History lorazepam 0.5 mg tablet 0.5 mg PO Q8 PRN Anxiety 06/08/23 08/29/23 History mometasone-formoterol HFA 200 2 puff inhalation BID 06/08/23 08/29/23 History mcg-5 mcg/actuation aerosol inhaler (Dulera) omeprazole 20 mg capsule,delayed 20 mg PO DAILYBB 06/08/23 08/29/23 History release sertraline 100 mg tablet 150 mg PO DAILY 06/08/23 08/29/23 History vitamin B complex-vitamin C-folic 1 tab PO DAILY 06/08/23 08/29/23 History acid 0.8 mg tablet (Renal-Rika) benzonatate 100 mg capsule 200 mg PO TID PRN Cough 08/29/23 08/29/23 History calcium acetate(phosphat bind) 667 2,001 mg PO TIDM 08/29/23 08/29/23 History mg capsule cinacalcet 90 mg tablet 90 mg PO QDL 08/29/23 08/29/23 History medroxyprogesterone 150 mg/mL 150 mg IM .EVERY 3 MONTHS 08/29/23 08/29/23 History intramuscular suspension (Depo-Provera) sertraline 50 mg tablet 50 mg PO QAM 08/29/23 08/29/23 History trazodone 100 mg tablet 200 mg PO HS 08/29/23 08/29/23 History Allergies Allergy/AdvReac Type Severity Reaction Status Date / Time cefaclor Allergy Intermediate Rash Verified 08/29/23 22:00 Cephalosporins Allergy Intermediate Rash Verified 08/29/23 22:00 amoxicillin AdvReac Intermediate VOMITING Verified 08/29/23 22:00 clavulanic acid AdvReac Intermediate VOMITING Verified 08/29/23 22:00 Past Med/Surg History Medical History Abnormal chest xray Elevated lactic acid level Transaminitis Pneumonia Metabolic encephalopathy Acute non-ST elevation myocardial infarction (NSTEMI) Pulmonary edema Acute hyperkalemia Acute alteration in mental status Renal failure (ARF), acute on chronic Encephalopathy Rectal bleeding reason for up coming colonoscopy Facial fracture Thrombocytopenia Depression with anxiety Anemia of chronic disease Status post fall last fall November 2022 > nasal fx / knee pain, no surgery for either injury > resolved per pt report GI bleed ESRD (end stage renal disease) on dialysis Symptomatic anemia Tobacco abuse DVT prophylaxis Fistula right arm (currently being used) and left arm Dialysis patient SATURDAY/SAT/SATURDAY AT [facility] GERD (gastroesophageal reflux disease) Bipolar disorder Restless leg syndrome Peripheral neuropathy Prolonged QT interval no cardio Asthma rare res inh use History of abnormal cervical Papanicolaou smear Elevated troponin Anemia due to end stage renal disease Acute electrocardiogram changes HTN (hypertension) DM2 (diabetes mellitus, type 2) diet controlled no meds FSGS (focal segmental glomerulosclerosis) DX INITIALLY 2012 (CAUSING ESRD 2012) Surgical History History of surgery left arm d/t clot in arm from AV fistula use @ [facility] History of surgery (~09/09/20) perm cath > since removed History of colonoscopy Kidney transplant recipient 2013 AT [facility] History of tooth extraction three TOOTH History of cardiac cath 2016 NO STENTS AVF (arteriovenous fistula) bilat upper arms ---currently using right for dialysis H/O hernia repair ABDOMINAL WALL History of cholecystectomy H/O eye surgery LASER SURGERY LEFT H/O tubal ligation H/O: X 2 H/O knee surgery LEFT KNEE X 2 Family History Grandmother Hx of CABG Mother Diabetes Father Crohn's disease Grandfather (Maternal) Diabetes Uncle Diabetes Grandmother (Maternal) Family history of reaction to anesthesia difficulty waking with colonoscopy Social History Smoking Status: Current every day smoker Tobacco Type: Cigarettes Cigarettes Per Day: 1 ppd; Second Hand Exposure: No; Do You Dip or Chew Tobacco: No; Hx Alcohol Use: No Hx Substance Use: No Preferred Language: Yemeni Communication Ability: Effective Aerial Lineman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 Beliefs That Will Affect Care: None marital status: Single Current Living Situation: Family Current Living Situation Comment: Lives with fiance and kids How many Children do You have: 3 Other Information That Helps Us Care for You: No Feels Safe at Home: Yes Safety Concerns: Feels Safe At This Time Assistive Devices: Crutches Review of Systems A total of 10 systems reviewed and were otherwise negative Physical Exam Vital Signs Vital Signs - 24 hr 08/29/23 19:17 08/29/23 20:05 08/29/23 20:05 Temperature 36.5 C Temperature Source Temporal Artery Scan Pulse Rate 83 82 Pulse Rate [Apical] 82 Respiratory Rate 18 12 Respiratory Effort / Characteristics Non-Labored Spontaneous Respiratory Depth Normal Blood Pressure 118/52 L Blood Pressure [Right Calf] 187/137 H Blood Pressure Mean 74 Blood Pressure Mean [Right Calf] 153 Blood Pressure Position Sitting Pulse Oximetry 100 99 Oxygen Delivery Method Room Air Room Air Sepsis Recent Fever Within 48 Hours No Sepsis New/Unexplained Change in Mental Status N/A Sepsis Action Taken by Nursing No Action Required 08/29/23 20:09 08/29/23 20:30 08/29/23 20:33 Temperature Temperature Source Pulse Rate 80 Pulse Rate [Apical] 79 Respiratory Rate 20 24 Respiratory Effort / Characteristics Respiratory Depth Blood Pressure Blood Pressure [Right Calf] 131/99 Blood Pressure Mean Blood Pressure Mean [Right Calf] 109 Blood Pressure Position Pulse Oximetry 99 96 97 Oxygen Delivery Method Room Air Room Air Room Air Sepsis Recent Fever Within 48 Hours Sepsis New/Unexplained Change in Mental Status Sepsis Action Taken by Nursing 08/29/23 21:01 08/29/23 21:33 08/29/23 22:40 Temperature Temperature Source Pulse Rate Pulse Rate [Apical] 84 81 82 Respiratory Rate 12 12 18 Respiratory Effort / Characteristics Respiratory Depth Blood Pressure Blood Pressure [Right Calf] 186/111 H 176/136 H 143/115 H Blood Pressure Mean Blood Pressure Mean [Right Calf] 136 149 124 Blood Pressure Position Pulse Oximetry 91 95 97 Oxygen Delivery Method Room Air Room Air Room Air Sepsis Recent Fever Within 48 Hours Sepsis New/Unexplained Change in Mental Status Sepsis Action Taken by Nursing General: Well developed well nourished young female who appears chronically ill but in no acute distress, breathing comfortably on room air. Normal speech HEENT: Normal cephalic atraumatic. Pupils are equal round and reactive to light. Extraocular movements are intact. Oropharynx is pink with moist mucous membranes. No swelling of the mouth lips or tongue. Neck: Supple with a midline trachea. No meningeal signs or stiffness, no JVD or bruits. No Stridor. Chest: Clear to auscultation bilaterally. No wheezes or rhonchi. No increased work of breathing. Heart: Regular rate and rhythm without murmurs or gallops. Abdomen: Soft nontender, nondistended without rebound guarding or rigidity. Extremities: No cyanosis clubbing or edema. No calf tenderness or assymetry Spine/Back. Non tender to palpation. No CVA tenderness Skin: Good turgor without rashes. Neurologic exam: Cranial nerves two through 12 are intact. Motor and sensation are intact and symmetrical throughout. Course Administered Medications Sodium Bicarbonate 150 meq/ (Dextrose) 1,150 mls @ 290 mls/hr IV .Q3H58M STA Stop: 08/30/23 01:46 Last Admin: 08/29/23 22:29 Dose: 290 mls/hr Documented By: MAYI Discontinued Medications Carvedilol (Carvedilol 12.5 Mg Tab) 12.5 mg PO NOW ONE Stop: 08/29/23 22:43 Last Admin: 08/29/23 22:55 Dose: 12.5 mg Documented By: MAYI Dextrose (Dextrose 50% 50 Ml Syringe) 50 ml IV NOW STA Stop: 08/29/23 21:50 Last Admin: 08/29/23 22:30 Dose: 50 ml Documented By: MAYI Hydromorphone HCl (Hydromorphone Inj 0.5 Mg/0.5 Ml Syr) 0.25 mg IV NOW STA Stop: 08/29/23 22:45 Last Admin: 08/29/23 22:56 Dose: 0.25 mg Documented By: MAYI Calcium Gluconate 1,000 mg/ (Sodium Chloride) 60 mls @ 240 mls/hr IV NOW ONE Stop: 08/29/23 21:17 Last Infusion: 08/29/23 21:29 Dose: Infused Documented By: Admin: 08/29/23 21:12 Dose: 240 mls/hr Documented By: MAYI Insulin Human Regular 10 units (/ Syringe) 9.9 mls @ 3 mls/sec IV ONE STA Stop: 08/29/23 21:50 Last Admin: 08/29/23 22:30 Dose: 3 mls/sec Documented By: MAYI Co-signed By: MED Miscellaneous (Stat Iv/Im) 1 each N/A NOW STA Stop: 08/29/23 21:04 Last Admin: 08/29/23 21:11 Dose: Not Given Documented By: MAYI Sodium Zirconium Cyclosilicate (Sodium Zirconium Cyclosilicate 10 Gm Packet) 10 gm PO NOW STA Stop: 08/29/23 22:33 Last Admin: 08/29/23 22:47 Dose: 10 gm Documented By: MAYI Critical Care Time Critical Care Time: Yes Total Critical Care Time: 40 Due to the patient's end-stage renal disease, hyperkalemia, need for multiple IV medications, consultation with several doctors here in [place] as well as emergent transport for emergent dialysis, I have personally spent greater than 40 minutes of critical care time in the direct management of this patient. This includes bedside care, interpretation of diagnostic studies, and testing, discussion with consultants, patient, and family members, and other required patient management activities. This 40 minutes is in excess of all separately billable procedures. Medical Decision Making Differential Diagnosis Electrolyte or metabolic abnormality, hyperkalemia, cardiac disease, diabetic related complication, infection, anemia, CHF Medical Records Attestation: I reviewed the patient's medical records. Home Medications Current Medication List: was personally reviewed by me Laboratory Data Attestation: I reviewed the patient's lab results. 08/29/23 20:19 08/29/23 20:19 Lab Results 08/29/23 08/29/23 08/29/23 Range/Units 20:19 20:30 21:54 WBC 6.32 (4.8-10.8) K/ul RBC 3.30 L (4.20-5.40) M/uL Hgb 10.5 L (12.0-16.0) g/dl POC Hgb 10.5 L (12.0-16.0) g/dl Hct 32.0 L (37.0-47.0) % POC Hct 31 L (37-47) % MCV 97.0 (80.0-100.0) fL MCH 31.8 (25.0-34.0) pg MCHC 32.8 (32.0-36.0) g/dL RDW Std Deviation 50.4 H (36.4-46.3) fL RDW Coeff of Laith 14.3 (11.5-14.5) % Plt Count 104 L (130-400) K/uL MPV 10.1 (9.4-12.4) fL Immature Gran % (Auto) 0.3 % Neut % (Auto) 84.3 % Lymph % (Auto) 9.0 % Republic % (Auto) 5.1 % Eos % (Auto) 1.1 % Baso % (Auto) 0.2 % Neut # (Auto) 5.33 (1.40-6.50) K/uL Lymph # (Auto) 0.57 L (1.20-3.40) K/uL Republic # (Auto) 0.32 (0.11-0.59) K/uL Eos # (Auto) 0.07 (0.00-0.50) K/uL Baso # (Auto) 0.01 (0.00-0.20) K/uL Immature Gran # (Auto) 0.02 (0.01-0.20) K/uL POC Sodium 126 L (135-144) mmol/L Sodium 130 L (136-145) mmol/L POC Potassium 6.6 H* (3.3-5.0) mmol/L Potassium 6.9 H* (3.5-5.1) mmol/L POC Chloride 91 L (101-112) mmol/L Chloride 85 L (98-107) mmol/L Carbon Dioxide 22 (21-32) mmol/L POC Total CO2 23 L (24-31) mmol/L Anion Gap 23 H (3-11) POC Anion Gap 20.0 (16-25) mmol/L POC BUN 118 H* (7-18) mg/dl BUN 108 H (6-23) mg/dl Creatinine 15.34 H* (0.6-1.2) mg/dl POC Creatinine 17.4 H* (0.6-1.3) mg/dl Est Cr Clr Drug Dosing 5.6 ml/min Est GFR ( Amer) 3.1 ml/min Est GFR (Non-Af Amer) 2.6 ml/min BUN/Creatinine Ratio 7.0 L (10-20) Glucose 127 H (70-99(Fasting)) mg/dl POC Glucose 141 H (70-99) mg/dl POC Glucose (other) 128 H (70-99) mg/dl Calcium 10.0 (8.6-10.3) mg/dl POC Ioniz Calcium Shadia 1.08 L (1.12-1.32) mmol/l Total Bilirubin 0.5 (0.2-1.0) mg/dl AST 24 (13-39) U/L ALT 21 (7-52) U/L Alkaline Phosphatase 95 (34-104) U/L Troponin I High Sens 256.5 H* (0-14) pg/ml Total Protein 6.8 (6.0-8.3) gm/dl Albumin 3.9 (3.4-5.0) gm/dl Globulin 2.9 (2.5-4.0) gm/dl Albumin/Globulin Ratio 1.3 (0.9-2) Lipase 11 (11-82) U/L SARS-CoV-2, RNA, NAAT NEGATIVE (NEGATIVE) 08/29/23 Range/Units 22:37 WBC (4.8-10.8) K/ul RBC (4.20-5.40) M/uL Hgb (12.0-16.0) g/dl POC Hgb (12.0-16.0) g/dl Hct (37.0-47.0) % POC Hct (37-47) % MCV (80.0-100.0) fL MCH (25.0-34.0) pg MCHC (32.0-36.0) g/dL RDW Std Deviation (36.4-46.3) fL RDW Coeff of Laith (11.5-14.5) % Plt Count (130-400) K/uL MPV (9.4-12.4) fL Immature Gran % (Auto) % Neut % (Auto) % Lymph % (Auto) % Republic % (Auto) % Eos % (Auto) % Baso % (Auto) % Neut # (Auto) (1.40-6.50) K/uL Lymph # (Auto) (1.20-3.40) K/uL Republic # (Auto) (0.11-0.59) K/uL Eos # (Auto) (0.00-0.50) K/uL Baso # (Auto) (0.00-0.20) K/uL Immature Gran # (Auto) (0.01-0.20) K/uL POC Sodium (135-144) mmol/L Sodium (136-145) mmol/L POC Potassium (3.3-5.0) mmol/L Potassium (3.5-5.1) mmol/L POC Chloride (101-112) mmol/L Chloride (98-107) mmol/L Carbon Dioxide (21-32) mmol/L POC Total CO2 (24-31) mmol/L Anion Gap (3-11) POC Anion Gap (16-25) mmol/L POC BUN (7-18) mg/dl BUN (6-23) mg/dl Creatinine (0.6-1.2) mg/dl POC Creatinine (0.6-1.3) mg/dl Est Cr Clr Drug Dosing ml/min Est GFR ( Amer) ml/min Est GFR (Non-Af Amer) ml/min BUN/Creatinine Ratio (10-20) Glucose (70-99(Fasting)) mg/dl POC Glucose (70-99) mg/dl POC Glucose (other) (70-99) mg/dl Calcium (8.6-10.3) mg/dl POC Ioniz Calcium Shadia (1.12-1.32) mmol/l Total Bilirubin (0.2-1.0) mg/dl AST (13-39) U/L ALT (7-52) U/L Alkaline Phosphatase (34-104) U/L Troponin I High Sens 411.3 H* D (0-14) pg/ml Total Protein (6.0-8.3) gm/dl Albumin (3.4-5.0) gm/dl Globulin (2.5-4.0) gm/dl Albumin/Globulin Ratio (0.9-2) Lipase (11-82) U/L SARS-CoV-2, RNA, NAAT (NEGATIVE) Imaging Data Attestation: I personally reviewed and interpreted this imaging study as follows: My Impression: Chest x-raythere is congestive heart failure changes. ECG Data Attestation: I personally reviewed and interpreted this ECG as follows: Indication: + SOB/dyspnea and + weakness Rate (beats per minute): 81 Rhythm: + normal sinus ECG Intervals/blocks: + Normal QRS, + Normal QT and + Normal SD ECG Cecil: + Normal ECG Findings: no PACs or no PVCs Comparison ECG Date: from (06/07/23) Change: no significant change MDM Narrative This patient comes in as described above. She was placed in room B1. She presented to triage and the nurses had me go see her given her history. She has missed dialysis for the last 2 sessions and does not feel well. She is awake and has stable vital signs. We did an EKG and there is no widening the QRS. The T waves do not appear to be significantly peaked compared to previous. She has been a very tough vascular access. I did order blood work and EKG and chest x-ray. Her potassium was elevated on the i-STAT and I did give her 1 amp of calcium gluconate. I did get the blood work back from the lab and it was 6.9 so she was given 1 amp of sodium bicarb, IV insulin and IV glucose as per hyperkalemic kalemia protocol. She does appear to have fluid overload on her chest x-ray although does not appear to be in any respiratory distress. Her EKG shows no ischemic changes or any definite significant hyperkalemic changes with exception of possible peaked T waves although it looks unchanged from previous her troponin is mildly elevated as well but it has been significant elevated in the past. I did consult Dr. Morgan to see this patient for admission/observation he did see the patient in the ER and has written some orders but did talk to the on-call construction person who feels that the patient should be transferred to [facility] we cannot get dialysis here till tomorrow morning. I did talk to construction person as well. I did call and talk to [place] about getting her emergently transferred to get emergent dialysis. I did talk to Dr. Steinberg, nephrology as well as Dr. Orourke who is the hospitalist and accepted the patient we are going to send her there by air transport and her she [facility] will was the closest available service. The patient will be transferred emergently she has been remained hemodynamically stable. Continuous cardiac monitoring: Orders placed in EMR for continuous cardiac monitoring: Upon my evaluation patient was noted to be in normal sinus rhythm with a rate of 80. Impression & Plan Acute hyperkalemia, ESRD (end stage renal disease) on dialysis, SOB (shortness of breath), Elevated troponin Discharge Plan Visit Data Chief Complaint: Cardiac Assessment Stated Complaint: CHEST PAIN, LEG ISSUES ED Provider: Andrea Diaz Discharge Problem: Acute hyperkalemia, ESRD (end stage renal disease) on dialysis, SOB (shortness of breath), Elevated troponin
[2023-08-29 20:42] LABS: iSTAT Creatinine 17.4 mg/dl (0.6-1.3); iSTAT Hemoglobin 10.5 g/dl (12.0-16.0); iSTAT Ionized Calcium 1.08 mmol/l (1.12-1.32); iSTAT Potassium 6.6 mmol/L (3.3-5.0)
[2023-08-29] MEDS ORDERED: CALCIUM GLUCONATE 10% 1,000 MG in SODIUM CHLOR 0.9% MINI-B 50 ML IV ONE (21:03)
[2023-08-29] MEDS ORDERED: STAT IV/IM STA (21:03)
[2023-08-29 21:06] LABS: Basophils # (auto) 0.01 K/uL (0.00-0.20); Basophils % (auto) 0.2 %; Eosinophils # (auto) 0.07 K/uL (0.00-0.50); Eosinophils % (auto) 1.1 %; Hemoglobin 10.5 g/dl (12.0-16.0); Immature Granulocytes # (auto) 0.02 K/uL (0.01-0.20); Immature Granulocytes % (auto) 0.3 %; Lymphocytes # (auto) 0.57 K/uL (1.20-3.40); Mean Corpuscular Hemoglobin 31.8 pg (25.0-34.0); Mean Corpuscular Hgb Conc 32.8 g/dL (32.0-36.0); Mean Platelet Volume 10.1 fL (9.4-12.4); Monocytes # (auto) 0.32 K/uL (0.11-0.59); Monocytes % (auto) 5.1 %; Neutrophils # (auto) 5.33 K/uL (1.40-6.50); Neutrophils % (auto) 84.3 %; Platelet Count 104 K/uL (130-400); RDW Coefficient of Variation 14.3 % (11.5-14.5); RDW Standard Deviation 50.4 fL (36.4-46.3); White Blood Count 6.32 K/ul (4.8-10.8)
[2023-08-29 21:39] LABS: Albumin Globulin Ratio 1.3 (0.9-2); Albumin Level 3.9 gm/dl (3.4-5.0); Bilirubin,Total 0.5 mg/dl (0.2-1.0); Creatinine Clr Calc Pharmacy 5.6 ml/min; Est GFR (African American) 3.1 ml/min; Est GFR (Non-African American) 2.6 ml/min; Globulin 2.9 gm/dl (2.5-4.0); Potassium 6.9 mmol/L (3.5-5.1); Total Protein 6.8 gm/dl (6.0-8.3); Troponin I High Sensitivity 256.5 pg/ml (0-14)
[2023-08-29] MEDS ORDERED: SODIUM BICARBONATE 8.4% 150 MEQ in DEXTROSE 5% 1,000 ML IV STA (21:49)
[2023-08-29] MEDS ORDERED: INSULIN HUMAN REGULAR PER UNIT 10 UNITS in SYRINGE 9.9 ML IV STA (21:49)
[2023-08-29] MEDS ORDERED: DEXTROSE 50% 50 ML SYRINGE IV STA (21:49)
[2023-08-29] MEDS ORDERED: SODIUM ZIRCONIUM CYCLOSILICATE 10 GM PACKET PO STA (22:32)
[2023-08-29] MEDS ORDERED: carvediloL 12.5 MG TAB PO ONE (22:42)
[2023-08-29] MEDS ORDERED: HYDROmorphone INJ 0.5 MG/0.5 ML SYR IV STA (22:44)
--- NOTE | 2023-08-30 06:46 | XRay Report ---
XR chest 1V portable HISTORY: 37 years-old Female Chest pain, nonspecific COMPARISON: 08/22/2023 TECHNIQUE: AP view of the chest FINDINGS: Cardiac silhouette is enlarged. Vascular stent grafts project over the superior mediastinum, left upp er extremity and right subclavian distributions. Cholecystectomy. Left sided rotator cuff calcific te ndinosis. Mediastinum. Pulmonary vascular congestion. Mild right hemidiaphragmatic elevation. No pneu mothorax, pleural effusion or airspace consolidation. IMPRESSION: Cardiomegaly with pulmonary vascular congestion. ACT 112: Negative or not required by law. The above report was generated using voice recognition software. It may contain grammatical, syntax o r spelling errors. Electronically signed by: Cristhian Copeland M.D. 08/30/2023 6:44 AM
--- NOTE | 2023-08-30 07:30 | History & Physical Report ---
Date of Service August 29, 2023 Assessment & Plan (1) Acute hyperkalemia: Plan: 37-year-old female with PMH DM type II, ESRD on HD MWF (history of failed renal transplant), HTN, bipolar disorder, history of DVT and PE no longer on anticoagulation, medical noncompliance, presents with missing dialysis . Says last dialysis was last Saturday. Says her alarm did not go up is a reason she missed her dialysis. Patient is sleepy. Says has some headache some runny nose ,sore throat and upset stomach. Denies any chest pain or shortness of breath. No cough. No fevers. Says somewhat constipated. Potassium came at 6.9. ER gave sodium bicarbonate, calcium gluconate and insulin dextrose. Ordered Lokelma. Nephrology called back and said to transfer to [place] for emergent dialysis. ER called [place] and she was transferred. History of Present Illness Chief Complaint: Missed Dialysis Primary Care Provider: Adolph Aldridge MD 37-year-old female with PMH DM type II, ESRD on HD MWF (history of failed renal transplant), HTN, bipolar disorder, history of DVT and PE no longer on anticoagulation, medical noncompliance, presents with missing dialysis . Says last dialysis was last Saturday. Says her alarm did not go up is a reason she missed her dialysis. Patient is sleepy. Says has some headache some runny nose ,sore throat and upset stomach. Denies any chest pain or shortness of breath. No cough. No fevers. Says somewhat constipated. Potassium came at 6.9. ER gave sodium bicarbonate, calcium gluconate and insulin dextrose. Ordered Lokelma. Nephrology called back and said to transfer to [place] for emergent dialysis. ER called [place] and she was transferred. Allergies Allergy/AdvReac Type Severity Reaction Status Date / Time cefaclor Allergy Intermediate Rash Verified 08/29/23 22:00 Cephalosporins Allergy Intermediate Rash Verified 08/29/23 22:00 amoxicillin AdvReac Intermediate VOMITING Verified 08/29/23 22:00 clavulanic acid AdvReac Intermediate VOMITING Verified 08/29/23 22:00 Home Medications Medication Instructions Recorded Confirmed Type albuterol sulfate 2.5 mg/3 mL 2.5 mg inhalation Q4H PRN 06/08/23 08/29/23 History (0.083 %) solution for nebulization Shortness Of Breath Or Wheezing albuterol sulfate 90 mcg/actuation 2 puff inhalation Q6H PRN 06/08/23 08/29/23 History aerosol inhaler Shortness Of Breath Or Wheezing carbamazepine 200 mg tablet 200 mg PO AMPM 06/08/23 08/29/23 History carvedilol 12.5 mg tablet (Coreg) 12.5 mg PO BID 06/08/23 08/29/23 History gabapentin 400 mg capsule 400 mg PO AMHS 06/08/23 08/29/23 History hydroxyzine HCl 25 mg tablet 25 mg PO Q6H PRN Anxiety 06/08/23 08/29/23 History lorazepam 0.5 mg tablet 0.5 mg PO Q8 PRN Anxiety 06/08/23 08/29/23 History mometasone-formoterol HFA 200 2 puff inhalation BID 06/08/23 08/29/23 History mcg-5 mcg/actuation aerosol inhaler (Dulera) omeprazole 20 mg capsule,delayed 20 mg PO DAILYBB 06/08/23 08/29/23 History release sertraline 100 mg tablet 150 mg PO DAILY 06/08/23 08/29/23 History vitamin B complex-vitamin C-folic 1 tab PO DAILY 06/08/23 08/29/23 History acid 0.8 mg tablet (Renal-Rika) benzonatate 100 mg capsule 200 mg PO TID PRN Cough 08/29/23 08/29/23 History calcium acetate(phosphat bind) 667 2,001 mg PO TIDM 08/29/23 08/29/23 History mg capsule cinacalcet 90 mg tablet 90 mg PO QDL 08/29/23 08/29/23 History medroxyprogesterone 150 mg/mL 150 mg IM .EVERY 3 MONTHS 08/29/23 08/29/23 History intramuscular suspension (Depo-Provera) sertraline 50 mg tablet 50 mg PO QAM 08/29/23 08/29/23 History trazodone 100 mg tablet 200 mg PO HS 08/29/23 08/29/23 History Past Med/Surg History Medical History Abnormal chest xray Elevated lactic acid level Transaminitis Pneumonia Metabolic encephalopathy Acute non-ST elevation myocardial infarction (NSTEMI) Pulmonary edema Acute hyperkalemia Acute alteration in mental status Renal failure (ARF), acute on chronic Encephalopathy Rectal bleeding reason for up coming colonoscopy Facial fracture Thrombocytopenia Depression with anxiety Anemia of chronic disease Status post fall last fall November 2022 > nasal fx / knee pain, no surgery for either injury > resolved per pt report GI bleed ESRD (end stage renal disease) on dialysis Symptomatic anemia Tobacco abuse DVT prophylaxis Fistula right arm (currently being used) and left arm Dialysis patient SATURDAY/SAT/SATURDAY AT [facility] GERD (gastroesophageal reflux disease) Bipolar disorder Restless leg syndrome Peripheral neuropathy Prolonged QT interval no cardio Asthma rare res inh use History of abnormal cervical Papanicolaou smear Elevated troponin Anemia due to end stage renal disease Acute electrocardiogram changes HTN (hypertension) DM2 (diabetes mellitus, type 2) diet controlled no meds FSGS (focal segmental glomerulosclerosis) DX INITIALLY 2012 (CAUSING ESRD 2012) Surgical History History of surgery left arm d/t clot in arm from AV fistula use @ [facility] History of surgery (~09/09/20) perm cath > since removed History of colonoscopy Kidney transplant recipient 2013 AT [facility] History of tooth extraction three TOOTH History of cardiac cath 2016 NO STENTS AVF (arteriovenous fistula) bilat upper arms ---currently using right for dialysis H/O hernia repair ABDOMINAL WALL History of cholecystectomy H/O eye surgery LASER SURGERY LEFT H/O tubal ligation H/O: X 2 H/O knee surgery LEFT KNEE X 2 Family History Grandmother Hx of CABG Mother Diabetes Father Crohn's disease Grandfather (Maternal) Diabetes Uncle Diabetes Grandmother (Maternal) Family history of reaction to anesthesia difficulty waking with colonoscopy Social History Smoking Status: Current every day smoker Tobacco Type: Cigarettes Cigarettes Per Day: 1 ppd; Second Hand Exposure: No; Do You Dip or Chew Tobacco: No; Hx Alcohol Use: No Hx Substance Use: No Preferred Language: Japanese Communication Ability: Effective 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 ENT- oropharynx clear Neck- supple, no JVD. Lungs- clear to auscultation no wheezing or crackles. Heart- regular rhythm; no murmur, no gallop. Abdomen- normal bowel sounds, soft, nontender, no distension Extremities- mild edema. Neuro- Drowsy; PERRL, no facial palsy; no dysarthria; moves extremities. Results & Data Results & Data Vital Signs (Past 12 Hours) Vital Signs Temp Pulse Pulse Resp BP BP Pulse Ox 08/29/23 22:40 82 18 143/115 H 97 08/29/23 21:33 81 12 176/136 H 95 08/29/23 21:01 84 12 186/111 H 91 08/29/23 20:33 80 24 97 08/29/23 20:30 79 20 131/99 96 08/29/23 20:09 99 08/29/23 20:05 82 08/29/23 20:05 82 12 187/137 H 99 08/29/23 19:17 36.5 C 83 18 118/52 L 100 O2 Del Method 08/29/23 22:40 Room Air 08/29/23 21:33 Room Air 08/29/23 21:01 Room Air 08/29/23 20:33 Room Air 08/29/23 20:30 Room Air 08/29/23 20:09 Room Air 08/29/23 20:05 08/29/23 20:05 Room Air 08/29/23 19:17 Room Air Diagnostic Findings Laboratory Results WBC 6.32 K/ul (4.8-10.8) 08/29/23 20:19 RBC 3.30 M/uL (4.20-5.40) L 08/29/23 20:19 Hgb 10.5 g/dl (12.0-16.0) L 08/29/23 20:19 POC Hgb 10.5 g/dl (12.0-16.0) L 08/29/23 20:30 Hct 32.0 % (37.0-47.0) L 08/29/23 20:19 POC Hct 31 % (37-47) L 08/29/23 20:30 MCV 97.0 fL (80.0-100.0) 08/29/23 20:19 MCH 31.8 pg (25.0-34.0) 08/29/23 20:19 MCHC 32.8 g/dL (32.0-36.0) 08/29/23 20:19 RDW Std Deviation 50.4 fL (36.4-46.3) H 08/29/23 20:19 RDW Coeff of Laith 14.3 % (11.5-14.5) 08/29/23 20:19 Plt Count 104 K/uL (130-400) L 08/29/23 20:19 MPV 10.1 fL (9.4-12.4) 08/29/23 20:19 Immature Gran % (Auto) 0.3 % 08/29/23 20:19 Neut % (Auto) 84.3 % 08/29/23 20:19 Lymph % (Auto) 9.0 % 08/29/23 20:19 [place] % (Auto) 5.1 % 08/29/23 20:19 Eos % (Auto) 1.1 % 08/29/23 20:19 Baso % (Auto) 0.2 % 08/29/23 20:19 Neut # (Auto) 5.33 K/uL (1.40-6.50) 08/29/23 20:19 Lymph # (Auto) 0.57 K/uL (1.20-3.40) L 08/29/23 20:19 [place] # (Auto) 0.32 K/uL (0.11-0.59) 08/29/23 20:19 Eos # (Auto) 0.07 K/uL (0.00-0.50) 08/29/23 20:19 Baso # (Auto) 0.01 K/uL (0.00-0.20) 08/29/23 20:19 Immature Gran # (Auto) 0.02 K/uL (0.01-0.20) 08/29/23 20:19 POC Sodium 126 mmol/L (135-144) L 08/29/23 20:30 Sodium 130 mmol/L (136-145) L 08/29/23 20:19 POC Potassium 6.6 mmol/L (3.3-5.0) H* 08/29/23 20:30 Potassium 6.9 mmol/L (3.5-5.1) H* 08/29/23 20:19 POC Chloride 91 mmol/L (101-112) L 08/29/23 20:30 Chloride 85 mmol/L (98-107) L 08/29/23 20:19 Carbon Dioxide 22 mmol/L (21-32) 08/29/23 20:19 POC Total CO2 23 mmol/L (24-31) L 08/29/23 20:30 Anion Gap 23 (3-11) H 08/29/23 20:19 POC Anion Gap 20.0 mmol/L (16-25) 08/29/23 20:30 POC BUN 118 mg/dl (7-18) H* 08/29/23 20:30 BUN 108 mg/dl (6-23) H 08/29/23 20:19 Creatinine 15.34 mg/dl (0.6-1.2) H* 08/29/23 20:19 POC Creatinine 17.4 mg/dl (0.6-1.3) H* 08/29/23 20:30 Est Cr Clr Drug Dosing 5.6 ml/min 08/29/23 20:19 Est GFR ( Amer) 3.1 ml/min 08/29/23 20:19 Est GFR (Non-Af Amer) 2.6 ml/min 08/29/23 20:19 BUN/Creatinine Ratio 7.0 (10-20) L 08/29/23 20:19 Glucose 127 mg/dl (70-99(Fasting)) H 08/29/23 20:19 POC Glucose 133 mg/dl (70-99) H 08/30/23 00:32 POC Glucose (other) 128 mg/dl (70-99) H 08/29/23 20:30 Calcium 10.0 mg/dl (8.6-10.3) 08/29/23 20:19 POC Ioniz Calcium Shadia 1.08 mmol/l (1.12-1.32) L 08/29/23 20:30 Total Bilirubin 0.5 mg/dl (0.2-1.0) 08/29/23 20:19 AST 24 U/L (13-39) 08/29/23 20:19 ALT 21 U/L (7-52) 08/29/23 20:19 Alkaline Phosphatase 95 U/L (34-104) 08/29/23 20:19 Troponin I High Sens 411.3 pg/ml (0-14) H* D 08/29/23 22:37 Total Protein 6.8 gm/dl (6.0-8.3) 08/29/23 20:19 Albumin 3.9 gm/dl (3.4-5.0) 08/29/23 20:19 Globulin 2.9 gm/dl (2.5-4.0) 08/29/23 20:19 Albumin/Globulin Ratio 1.3 (0.9-2) 08/29/23 20:19 Lipase 11 U/L (11-82) 08/29/23 20:19 SARS-CoV-2, RNA, NAAT NEGATIVE (NEGATIVE) 08/29/23 20:19 Impressions Chest X-Ray 08/29/23 20:11 XR chest 1V portable HISTORY: 37 years-old Female Chest pain, nonspecific COMPARISON: 08/22/2023 TECHNIQUE: AP view of the chest FINDINGS: Cardiac silhouette is enlarged. Vascular stent grafts project over the superior mediastinum, left upper extremity and right subclavian distributions. Cholecystectomy. Left sided rotator cuff calcific tendinosis. Mediastinum. Pulmonary vascular congestion. Mild right hemidiaphragmatic elevation. No pneumothorax, pleural effusion or airspace consolidation. IMPRESSION: Cardiomegaly with pulmonary vascular congestion. ACT 112: Negative or not required by law. The above report was generated using voice recognition software. It may contain grammatical, syntax or spelling errors. Electronically signed by: Cristhian Copeland M.D. 08/30/2023 6:44 AM ECG Additional Comments: ECG. Normal sinus rhythm with rate of 81. Left axis deviation. Nonspecific intraventricular conduction block. Code Status & VTE Plan VTE Prophylaxis Plan VTE Prophylaxis will be ordered: Yes
--- NOTE | 2023-08-30 07:45 | Discharge Summary ---
Date of Service August 30, 2023 Admission HPI Per Admitting Provider 37-year-old female with PMH DM type II, ESRD on HD MWF (history of failed renal transplant), HTN, bipolar disorder, history of DVT and PE no longer on anticoagulation, medical noncompliance, presents with missing dialysis . Says last dialysis was last Saturday. Says her alarm did not go up is a reason she missed her dialysis. Patient is sleepy. Says has some headache some runny nose ,sore throat and upset stomach. Denies any chest pain or shortness of breath. No cough. No fevers. Says somewhat constipated. Potassium came at 6.9. ER gave sodium bicarbonate, calcium gluconate and insulin dextrose. Order ed [facility]. Nephrology called back and said to transfer to [facility] for emergent dialysis. ER called [facility] and she was transferred. Principal Diagnosis Acute Hyperkalmeia Discharge Data Allergies Allergy/AdvReac Type Severity Reaction Status Date / Time cefaclor Allergy Intermediate Rash Verified 08/29/23 22:00 Cephalosporins Allergy Intermediate Rash Verified 08/29/23 22:00 amoxicillin AdvReac Intermediate VOMITING Verified 08/29/23 22:00 clavulanic acid AdvReac Intermediate VOMITING Verified 08/29/23 22:00 Consultations 08/29/23 21:21 ED Decision to Admit Stat Total Time Total Time Spent Total Time Spent (In Minutes): 30minutes Discharge Plan Discharge Items Patient Disposition: Transfer Acute Care Hospital Reason For Visit: HYPERKALEMIA Discharge Diagnosis: Hyperkalemia Activity: As commented below Activity Comment: Per [facility] Non-emergency contact: Primary Care Provider Call non-emergency contact if: you have any medication questions Follow-up/Referrals: Adolph Aldridge MD [Primary Care Provider] - Diet: Low Potassium (2gm) Addtl Attending Provider Instructions: [facility] Pending Studies at Discharge: No Stand-Alone Forms: My [facility] Skilled Items Patient informed of condition?: Yes DNR: No Discharge Level of Care: Other Communicable Disease: No Discharge Prognosis: Other Lines: Peripheral IV Urinary Catheter: No Medications and DC Order Prescriptions: Continued carvedilol [Coreg] 12.5 mg Tablet 12.5 mg PO BID Rx Instructions: must administer with a meal/food albuterol sulfate 2.5 mg /3 mL (0.083 %) Solution For Nebulization 2.5 mg INHALATION Q4H PRN (Reason: Shortness Of Breath Or Wheezing) gabapentin 400 mg capsule 400 mg PO AMHS sertraline 100 mg tablet 150 mg PO DAILY carbamazepine 200 mg tablet 200 mg PO AMPM lorazepam 0.5 mg tablet 0.5 mg PO Q8 MDD panic attacks/before dialysis PRN (Reason: Anxiety) omeprazole 20 mg capsule,delayed release(DR/EC) 20 mg PO DAILYBB hydroxyzine HCl 25 mg tablet 25 mg PO Q6H PRN (Reason: Anxiety) Renal-Rika 0.8 mg Tablet 1 tab PO DAILY albuterol sulfate 90 mcg/actuation Hfa Aerosol Inhaler 2 puff INHALATION Q6H PRN (Reason: Shortness Of Breath Or Wheezing) Dulera 200-5 mcg/actuation Hfa Aerosol Inhaler 2 puff INHALATION BID cinacalcet 90 mg tablet 90 mg PO QDL benzonatate 100 mg capsule 200 mg PO TID PRN (Reason: Cough) trazodone 100 mg tablet 200 mg PO HS medroxyprogesterone [Depo-Provera] 150 mg/mL Suspension 150 mg IM .EVERY 3 MONTHS calcium acetate(phosphat bind) 667 mg Capsule 2,001 mg PO TIDM Discontinued sertraline 50 mg tablet 50 mg PO QAM Discharge Orders: Discharge Order (Routine); Ordered 08/30/23 Ordered By: Daquan Morgan Admission Data Admit Date/Time: 08/29/23 22:41 Attending Provider: Kirill Briscoe Admit Provider: Daquan Morgan Primary Care Provider: Adolph Aldridge Other Providers: Daquan Morgan
--- NOTE | 2023-08-30 11:30 | Electrocardiogram Report ---
Test Reason : Blood Pressure : / mmHG Vent. Rate : 081 BPM Atrial Rate : 081 BPM P-R Int : 176 ms QRS Dur : 128 ms QT Int : 430 ms P-R-T Axes : 052 -34 009 degrees QTc Int : 499 ms Normal sinus rhythm Left axis deviation Poor R wave progression, consider anterior MN vs. lead placement vs. LVH Minimal voltage criteria for LVH, may be normal variant Abnormal ECG When compared with ECG of 07-JUN-2023 21:07, Borderline criteria for Lateral infarct are no longer Present Non-specific change in ST segment in Lateral leads Confirmed by Dash Tejada ([id number]) on 08/30/2023 11:30:10 AM Referred By: REFERRED SELF Confirmed By:Dash Tejada
--- OUTSIDE RECORDS SUMMARY | 2023-09-03 08:34 | External Medical Summary ---
Author Name Unknown Address Unknown Organization : Laboratory Report Ordering Provider Test Date Status PATRICIA BETHEA 09/01/2023 16:52:22 Final Observation Date Value Abnormality Reference (Units ) Status Glucose Point of Care 09/01/2023 16:52:22 108 70-120 (mg/dL) Final Performing Location
--- OUTSIDE RECORDS SUMMARY | 2023-09-03 08:34 | External Medical Summary | Summary of Care ---
Author Name Unknown Organization [facility] Address [address] [place] [address] Phone [phone] Care Team Providers Care Director Digital Analytics Name Role Phone Adolph Aldridge MD Primary Care Provider [phone] Reason for Referral * Social Care (Within 10 days (routine)) - Authorized Specialty Diagnoses / Procedures Referred By Adarsh mckay Referred To Contact Tank Tester Diagnoses Major depressive disorder, recurrent, in partial remission (HCC) Bipolar disorder, in partial remission, most recent episode depressed (HCC) Balbir Hairston DO [address] [place] [id number] Referral ID Status Reason Start Date Expiration Date Visits Requested Visits Authorized [id number] Authorized Specialty Services Required 09/02/[phone] Question Answer Referral Priority Within 10 days (routine) Where should this appointment be scheduled? [facility] Tank TesterCommercial [employer] Specialist Health Tank Tester Referral Reason Depression (PHQ-9>10), Bipolar Comments Is patient being transitioned from [facility] to Complex Case Management? No Reason for Visit * Reason Onset Date Comments [facility]: Screening 09/02/2023 Encounter Details Date Type Department Care Team ([facility] Contact Info) Description 09/02/2023 Telephone [facility], [facility] [address] [id number] [facility], Nurse [facility] [address] [address] [facility]: Screening Allergies Active Allergy Reactions Criticality Noted Date Comments Amoxicillin Low 01/27/2021 Other reaction(s): VOMITING Cefaclor Rash Low 11/23/2011 Cephalosporins Rash Low 05/16/1999 documented as of this encounter (statuses as of 09/02/2023) Medications Medication Sig Dispensed Refills Start Date End Date Status amLODIPine (NORVASC) 10 MG Tablet Take 1 Tablet by mouth at bedtime. 0 02/24/2020 Active Calcium Acetate (Phos Binder) 667 MG Oral Capsule (Phoslo) Take 3 Caps by mouth three times a day with meals. 270 Cap 3 11/03/2020 Active Renal Vitamin 0.8 MG Oral Tablet 1 Tab. 0 08/10/2020 Active Compressor NebulizerIndication s:Mild intermittent asthma with exacerbation Inhale via nebulizer. Use as directed.Dx J45.901 (asthma exacerbation) 1 Each 1 03/10/2021 Active Albuterol Sulfate (2.5 MG/3ML) 0.083% Inhalation Nebulization Solution (Proventil)Indicati ons:Mild intermittent asthma with exacerbation Inhale 1 Vial via nebulizer every 4 hours as needed for Wheezing. 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 39 g 3 09/21/2021 Active Ondansetron HCl 4 MG Oral TabletIndications:N ausea without vomiting Take by mouth 1 Tablet every 6 hours as needed for Nausea. 24 Tablet 0 03/14/2022 Active OneTouch Delica Plus [id number] s:DM type 2 with diabetic peripheral neuropathy (HCC),Type 2 diabetes mellitus with hemoglobin A1c goal of less than 7.0% (HCC) use 1 LANCET to TEST BLOOD SUGAR four times a day. DX E11.9 400 Each 3 03/23/2022 Active Albuterol Sulfate HFA 108 (90 Base) MCG/ACT Inhalation Aerosol SolutionIndications :Chronic cough,Upper respiratory tract infection, unspecified type Inhale by mouth 2 Puffs every 4 hours as needed for Wheezing. 8 g 6 03/29/2022 Active Sertraline HCl 100 MG Oral Tablet (Zoloft)Indications :Bipolar disorder, in partial remission, most recent episode depressed (HCC) Take by mouth 1.5 Tablets in the morning. 135 Tablet 3 05/22/2022 Active Additional Information Patient taking differently: 100 mgOral Daily(AM),Take with 50 mg for a total of 150 mg daily, Reported on 05/28/2023 Distra In Vitro Strip (Glucose Blood)Indications:D M type 1 with diabetic peripheral neuropathy (HCC) Use up to 4 times a day E11.9 100 Strip 11 05/21/2022 Active Fluticasone Propionate 50 MCG/ACT Nasal SuspensionIndicatio ns:Chronic rhinitis Administer into each nostril 2 Sprays in the morning. 16 g 2 05/23/2022 Active Gabapentin 400 MG Oral Capsule (Neurontin) Take 1 Capsule by mouth in the morning and 1 Capsule before bedtime. 180 Capsule 3 08/29/2022 Active traZODone HCl 100 MG Oral Tablet (Desyrel)Indication s:Insomnia due to other mental disorder Take 2 Tablets by mouth at bedtime. 180 Tablet 3 08/29/2022 Active Omeprazole 20 MG Oral Capsule Delayed Release (PriLOSEC)Indicatio ns:Gastroesophageal reflux disease, unspecified whether esophagitis present Take 1 Capsule by mouth in the morning. 1 hour before the first meal of the day. 90 Capsule 3 08/29/2022 Active Varenicline Tartrate 0.5 MG X 11 & 1 MG X 42 Oral Tablet Therapy Pack Take as directed on box 1 Each 3 11/22/2022 Active Carvedilol 12.5 MG Oral Tablet (Coreg) Take 0.5 Tablets by mouth in the morning and 0.5 Tablets before bedtime. 0 Active hydrOXYzine HCl 25 MG Oral TabletIndications:D epression with anxiety Take 1 Tablet by mouth every 6 hours as needed for Anxiety. 60 Tablet 2 01/23/2023 Active LORazepam 0.5 MG Oral Tablet (Ativan)Indications :Panic attack TAKE 1 TABLET BY MOUTH EVERY 8 HOURS NEEDED FOR PANIC ATTACKS AND BEFORE DIALYSIS Strength: 0.5 mg 20 Tablet 0 01/23/2023 Active carBAMazepine ER 200 MG Oral Tablet Extended Release 12 Hour (Tegretol-Xr) Take 1 Tablet by mouth 2 times a day in the morning and at bedtime. 0 Active medroxyPROGESTERone Acetate 150 MG/ML Intramuscular Suspension (Depo-Provera) Inject 150 mg into a large muscle every 3 months. 1 mL 3 02/27/2023 Active PEG 6343-RMt-RrCbo-NaCl -NaSulf 236 GM Oral Solution Reconstituted Please take according to Colonoscopy prep instructions. 4000 mL 0 03/19/2023 Active Benzonatate 100 MG Oral CapsuleIndications: Chronic cough Take 2 Capsules by mouth 3 times a day as needed for Cough. 30 Capsule 1 03/20/2023 Active Sertraline HCl 50 MG Oral Tablet (Zoloft) TAKE 1 TABLET BY MOUTH ONCE DAILY ALONG WITH THE 100MG FOR A TOTAL OF 150MG DAILY 0 02/28/2023 Active Cinacalcet HCl 60 MG Oral Tablet (Sensipar) Take 1 Tablet by mouth in the morning. 0 06/21/2023 Active Cinacalcet HCl 90 MG Oral Tablet (Sensipar) Take 1 tablet by mouth daily with dinner 30 Tablet 11 08/16/2023 Active amLODIPine Besylate 10 MG Oral Tablet (Norvasc) Take 1 Tablet by mouth in the morning. 30 Tablet 0 09/02/2023 4 Active cloNIDine HCl 0.2 MG Oral Tablet (Catapres) Take 1 Tablet by mouth in the morning. 30 Tablet 0 09/02/2023 4 Active hydrALAZINE HCl 100 MG Oral Tablet Take 1 Tablet by mouth in the morning and 1 Tablet at noon and 1 Tablet before bedtime. 90 Tablet 0 09/01/2023 4 Active traMADol HCl 50 MG Oral Tablet (Ultram) Take 1 Tablet by mouth 2 times a day as needed for Pain, Severe for up to 10 doses. 10 Tablet 0 09/01/2023 Active documented as of this encounter (statuses as of 09/02/2023) Active Problems Problem Noted Date Diagnosed Date Closed nondisplaced fracture of pelvis with rout ine healing 08/31/2023 Admission for dialysis 08/30/2023 Major depressive disorder, recurrent, in partial remission 04/02/2023 Cyst of ovary 04/02/2023 Cardiomegaly 04/02/2023 Hypertensive chronic kidney disease with stage 5 chronic kidney disease or end stage renal disease 09/06/2022 Type 2 diabetes mellitus wit h diabetic chronic kidney disease 09/06/2022 Restless legs syndrome 06/27/2021 Gastro-esophageal reflux disease without esophag itis 06/27/2021 Syncope and collapse 11/01/2020 Acute thrombosis of brachiocephalic (innominate) vein 09/29/2020 Malfunction of arteriovenous dialysis fistula DM kidney disease 10/06/2019 Bipolar disorder, in partial remission, most recent episode depressed 12/19/2018 Mass of finger, right 12/03/2018 DM type 2 with diabetic peripheral neuropathy Migraine with aura and witho ut status migrainosus, not intractable 08/27/2017 Chest pain 01/25/2017 HTN, goal below 140/90 2016 ESRD on dialysis 06/19/2016 Depression with anxiety 05/13/2016 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 03/19/11 Will resume checking sugars. Hgb A1C 6.5 on 03/19/11. 5.8 on 08/16/11. Was on Metformin prior to . No meds and not checking sugars at present. Insulin started 04/18/11: Humulin N 20 units with breakfast and 10 units at bedtime Humulin R 20 units with breafast and 10 units with dinner To report blood sugars via MyG flowsheet ICD-10 update of inactive term documented as of this encounter (statuses as of 09/02/2023) Resolved Problems Problem Noted Date Diagnosed Date Resolved Date Food insecurity 02/04/2023 08/08/2023 Overview: Per [facility] Protocol Major depressive disorder with single episode 06/27/20 21 03/20/2023 Arteriovenous fistula stenosis 06/15/2021 04/02/2023 Patellofemoral disorders, left knee 06/13/2017 10/11/2018 Peritoneal dialysis status 05/08/2017 0 09/14/2020 Pulmonary embolism and infarction 04/24/2017 05/08/2017 Nonallergic rhinitis 10/08/2016 017 Tobacco use disorder 10/08/2016 022 Elevated blood pressure, situational 10/08/2016 01/28/2017 Tooth pain 04/24/2015 01/28/2017 Hypokalemia 12/10/2014 12/10/2014 Hypomagnesemia 12/03/2014 12/10/2014 ARF (acute renal failure) 11/24/2014 Metabolic acidosis 11/05/2014 9 Hyperkalemia 11/05/2014 10/11/2018 Abdominal pain, RLQ (right lower quadrant) 11/03/2014 01/28/2017 Diarrhea 11/03/2014 01/28/2017 N&V (nausea and vomiting) 11/03/2014 ABHILASH (acute kidney injury) 11/03/2014 Chronic cough 09/03/2014 01/28/2017 Chronic rhinitis 09/03/2014 01/28/2017 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 10/11/2018 Transplanted kidney 03/01/2014 04/21/20 14 Pre-transplant evaluation fo r kidney transplant 02/04/2014 04/21/2014 Encounter for examination fo r normal comparison and control in clinical research program 09/15/2012 10/07/2012 Overview: Diagnosis changed due to Research Module. Go to Snapshot for study details. Iron deficiency anemia 07/24/201204/21 Overview: ICD-10 update of inactive term Kidney disease, chronic, sta ge IV (GFR 15-29 ml/min) 07/08/2012 04/21/2014 Supervision of other high-risk 04/26/2011 04/26/2011 Overview: ICD-10 update of inactive term Supervision of other high-risk 04/18/2011 01/28/2017 Overview: DISCUSSION/RECOMMENDATIONS: Encounter Diagnoses Code Name Primary? 250.40 DM Type 2 causing Renal Dz Yes 1. Explained to patient that pregnancies for women with pre-existing diabetes are at increased risk for multiple complications to both mother and fetus. The most important thing to note is that with optimal blood glucose control many of these risks can be reduced to the baseline risk of complications in non-diabetic women. Glycemic control during the first 10 weeks of is crucial to normal development. 2. Explained that the risks for the fetus of a diabetic mother include an increased incidence of congenital anomalies and malformations (20%- 40%), spontaneous miscarriage (30%-60%), labor and delivery, polyhydramnios, macrosomia and shoulder dystocia or trauma, stillbirth, respiratory distress syndrome, hypoglycemia, hyperbilirubinemia (jaundice), hypocalcemia, and hypomagnesemia. There is also a slightly increased risk of the child developing diabetes in childhood, childhood obesity, impaired/delayed fine and gross motor functions, and/or attention deficit/hyperactivity disorders. 3. Explained that risks to the diabetic woman during include an increased incidence of gestational hypertension and/or pre-eclampsia, thyroid disease, infection (especially urinary tract), development or worsening of pre-existing retinopathy or nephropathy, worsening of cardiovascular disease, and higher incidence of section delivery. 4. Advised patient that contraindications to may include evidence of maternal ischemic heart disease, active untreated proliferative retinopathy, renal insufficiency evidence by creatinine clearance of less than 50ml/min, serum creatinine greater than 2.0, urine protein greater than 2 grams in 24 hours, persistent HTN greater than 140/90 despite medical treatment, or severe gastroenteropathy. 5. Recommend a full opthalmology exam within 1 year of as retinopathy can be worsened by . 6. Evaluate renal function with 24 hour urine collection for urine protein as well as serum creatinine and uric acid values. Check TSH - wnl 7. Obtain a baseline EKG in anyone with a history of diabetes >10 years or over age 30 due to increased risk of cardiovascular disease. 8. Measure serum HgA1C every month. Aug = 6.5, Sept = 5.9 It is optimal to keep levels below 7 outside of and below 6 during . 9. Recommend monitoring blood sugars with daily Fasting Blood Sugar and 2 hour post prandial measurements and manipulating medications to keep Fasting Blood Sugar <90 and PP sugars <120. Report levels to [facility] department weekly. 10. Advised patient that Glyburide, Metformin, and insulin may be safely used during for the control of blood sugar levels. Alexandra will begin her insulin therapy today. 11. Dietary consult to be done to instruct patient on appropriate nutrition and diet to aid in control of blood sugars. 12. Recommend urine culture each trimester. 13. Recommend MFM ultrasound for limited anatomy at 12-14 weeks, for full anatomy at 18-20 weeks, and for echocardiography at 22-24 weeks. 14. Start testing with twice weekly NST and weekly MATTHEW beginning at 32 weeks or earlier if any evidence of uncontrolled blood sugars, renal abnormalities, or HTN. 15. Recommend MFM growth ultrasound every 4 weeks after 24 weeks gestation. If signs of macrosomia or IUGR are found then increase frequency of growth ultrasounds to every 2 to 4 weeks until delivery. 16. Deliver at 39 weeks if adequate blood sugar control. If poor blood sugar control may recommend delivery by 37-38 weeks after amniocentesis to prove lung maturity. 17. Alexandra is to call today to schedule follow-up visit with Dr Jo regarding her renal disease. V23.89 SUPERVISION OF OTHER HIGH RISK 401.9 HTN, goal to be determined 1. Explained to patient that women with chronic hypertension during are at significantly increased risk for placental abruption, pre-eclampsia/eclampsia, delivery, gestational diabetes, growth restriction, and stillbirth. These risks are related to the severity of the hypertension. 2. Obtain baseline labwork JES (if not already done) to include 24 hour urine collection for protein, serum liver function tests, uric acid, and creatinine to evaluate for any pre-existing kidney or liver disease. 3. If patient has had diagnosis of hypertension for more than 10 years, then recommend EKG and eye exam within the past year. 4. Recommend twice daily home blood pressure monitoring. 5. Recommend treating hypertension if blood pressures during rise greater than 160/105 and titrate to keep blood pressures in the range of 140/80 to 160/100 to allow for ample perfusion of the placenta. Labetalol and Procardia are considered safe for use in and we often recommend these agents as first-line therapy when indicated. 6. Recommend MFM ultrasound for anatomy at 18 to 20 weeks. Then for growth every 4 weeks (if on anti-hypertensives) or every 6 weeks (if NO anti-hypertensives) after 24 weeks gestation. 7. Recommend starting twice weekly NST/weekly MATTHEW at 32 weeks for any patients with CHTN on anti-hypertensive medication or suggestion of growth restriction or super-imposed pre-eclampsia. 8. Recommend delivery by 40 weeks for patients on anti-hypertensive medications and by 41 weeks for patients with CHTN on NO anti-hypertensive medication. 9. Reviewed signs and symptoms of pre-eclampsia including severe headache unrelieved by Tylenol, visual disturbances, nausea and vomitting, epigastric pain, and RUQ abdominal tenderness. Instructed patient to contact primary OB provider if these symptoms occur. 654.23 PREV C-SECT NOS-ANTEPART 1. Reviewed that patients with a history of a previous section are at increased risk in subsequent pregnancies for abnormal placentation (such as previa, acreta, increta, percreta), uterine rupture, abdominal adhesions (which increases the associated surgical risks of injury to adjacent organs, length of procedure, and increased blood loss), and other incision-related complications (such as hernia, rectal muscle diastasis). These risks increase linearly with the number of previous sections performed. 2. Routine repeat section is recommended to be scheduled between 39-40 weeks gestation. If patient has a previous classical uterine incision, then amniocentesis for lung maturity may be offered after 36-37 weeks gestation and if maturity is documented, then may reasonably proceed with repeat section. 3. carries a lower risk of hemorrhage and infection than delivery. It also generally involves a shorter hospital admission as well as a less painful and shorter recovery than delivery. The risks of uterine rupture are increased for at 0.2 to 1.5% with prior low transverse uterine incision and up to 10% with prior classical incision. In the event of uterine rupture there is a risk of maternal injury that may require a blood transfusion, hysterectomy, damage to nearby organs and even maternal . There is also a 10 to 25% risk of significant adverse sequelae which includes or permanent injury in 08/999 's. The chances of successful increases with any prior successful deliveries. 4. As per ACOG's 2010 recommendations, candidates for trial of labor for may include women with a previous low transverse uterine incision, one OR two previous sections, suspected macrosomia, gestation beyond 40 weeks, history of previous low vertical uterine incision, unknown previous uterine incision, and twin gestations. The risks and benefits should be discussed between the patient and her primary OB provider and ultimately agreed upon between these parties and documented as such. Any attempt at should be undertaken at a facility capable of emergent delivery. 278.01A BMI 35-39 w/ comorbidity (see actual BMI) 1. Discussed obstetrical risks associated with class 2 obesity (pre- BMI of 35 to 39.9) to include increased incidence of the following: spontaneous miscarriage, diabetes in , hypertension/pre-eclampsia, IUFD, macrosomia and shoulder dystocia, hemorrhage or infection, increased length of labor and section delivery, complications with anesthesia, as well as a possibly increased risk of congenital anomalies. 2. Recommend restricting weight gain during to 11-20 pounds. Consider referral for nutrition consult. 3. Reviewed that the accuracy of ultrasound at diagnosing anomalies can be decreased for women with an increased BMI. 4. Recommend obtaining early one hour glucola screen and repeat again at 26-28 weeks if early screen is normal. 5. Recommend [facility] ultrasound for anatomy screen at 20 weeks and for growth every 6 to 8 weeks after 24 weeks. 6. For patients with Class 2 obesity, if patient is diagnosed with GDM OR fetus is noted to be LGA, then recommend surveillance with twice weekly NST/weekly MATTHEW to begin at 32 weeks and delivery by EDC. V19.8 FAMILY HX - HEART DEFECT Recommend echo at 22 weeks ICD-10 update of inactive term Bacterial infection due to S treptococcus, group B 04/03/2011 01/28/2017 Overview: Urine GBS --- Rx Pen V --- TENA after tx. Obtained 06/07/2011 Marva CURRIE, contaminated patient to repepat OB Orville Torres 03/19/2011 01/29/20 17 Overview: 03/19/2011 Needs enrolled in [facility] once MA active. Marva CURREI- Enrolled 03/27/2011 Marva CURRIE Patient declines due to illness flu vaccine. 06/07/2011 Tami Rodriguez RN Growth scan at 27w: 1275g, which is greater than 90th percentile. MATTHEW 28 Other pre-existing hypertens ion complicating , childbirth, and the puerperium, unspecified as to episode of care 03/19/20112016 Overview: 03/19/11 -- Was on Lisiopril for HTN. Nifedipine 30 mg xl started at 10 wks Previous delivery, antepartum condition or complication 03/19/2011 01/28/2017 Overview: Prior C-Sx for macrosomia. Repeat at term. Requests PPTL. scheduled for 11.05.11 tubal consent signed 08/31/2011 Marva CURRIE Severe obesity with body mas s index (BMI) of 35.0 to 39.9 with serious comorbidity 11/21/2009 Overview: Per Obesity Taxonomy ICD-10 update of inactive diagnosis DM type 2 causing renal disease 06/23/2009 04/09/2014 Overview: Baseline 24 hour urine = 2.26 gram Urinary frequency 12/14/2008 04/18/2011 Dysuria 12/14/2008 04/18/2011 Urinary tract infection 12/14/200803/27 DM type 2 causing renal disease 02/05/2008 06/23/2009 Overview: Per Diabetes Taxonomy. INT DERANGEMENT KNEE, LEFT MEDIAL 12/19/2007 04/18/2011 Type 2 diabetes mellitus wit h hemoglobin A1c goal of less than 7.0% 10/25/2006 06/23/2009 Overview: Per Diabetes Taxonomy. ICD-10 update of inactive term Hypovolemia 10/25/2006 01/25/2007 ACUTE PHARYNGITIS 03/05/2006 01/25/2007 DYSFUNCT EUSTACHIAN TUBE 03/05/200609/2006 Otalgia 03/05/2006 01/25/2007 DISEASE OF NAIL, RIGHT POINTER 10/23/2005 04/18/2011 DERMATITIS ECZEMATOID NEC 10/23/2005 STREP SORE THROAT 08/31/2005 01/25/2007 ACUTE URI NOS 08/31/2005 01/25/2007 Fever and other physiologic disturbances of temperature regulation 08/31/2005 01/25/2007 Overview: ICD-10 update of inactive term ADVANCE DIRECTIVE INFORMATION 04/23/2005 10/11/2018 Overview: No, Advance Directive brochure offered , patient declined. HBP , NORMAL FIRST 03/06/2005 10/29/2008 DIABETES-ANTEPARTUM 01/17/2005 01/26/20 07 AC MAXILLARY SINUSITIS, LEFT 12/20/2004 01/25/2007 Acute nasopharyngitis 12/20/20042006 Vertigo 12/20/2004 01/25/2007 Accidental poisoning by [place]-hand tobacco smoke 12/20/2004 04/18/2011 Overview: ICD-10 update of inactive term Volume depletion 12/20/2004 04/21/2014 HBP , NORMAL FIRST 09/14/2004 10/29/2008 OBESITY, UNSPECIFIED 03/11/2003 010 Overview: Per Obesity Taxonomy STRAIN OF LEFT KNEE WITH ALEXADNRA PECTED MILD DISLOCATION OF PATELLA 04/14/2002 04/18/2011 PATELLA-FEMORAL DYSFUNCTION 04/14/2002 04/18/2011 FX PHALANX, HAND NOS-CL 12/17/200003/27 HTN, goal below 140/90 04/21 documented as of this encounter (statuses as of 09/02/2023) Immunizations Name Administration Dates Next Due COVID-19 mRNA, LNP-s, No Pre serve, 2-Dose Series (Moderna) 12/14/2020,11/16/2020 H1N1 2009 Influenza, Intranasal 08/11/2009 MMR - Measles/Mumps/Rubella Vaccine 10/11/2011 Pneumococcal Conjugate Vacc, 13 Valent (Prevnar) 03/10/2020 Pneumococcal Polysaccharide PPV23 (Pneumovax) 03/26/2017,12/05/2006 Seasonal Influenza, PF, 6 M & above, IM , (FluLaval or Fluzone) 05/26/2023,05/26/2020,06/11/2019,05/02 Seasonal Influenza, Split, I IV3, With Preserve, Inj 05/06/2017,05/05/2016,06/25/2013,08/05,07/02/2011,05/05/2009 TDAP (age 11 and older)(Adacel) 10/09/2011 documented as of this encounter Social History Tobacco Use Types Packs/Day Years Used Date Smoking Tobacco: Every Day Cigarettes 0.5 11 Last attempted to quit: 12/2021 Smokeless Tobacco: Never Comments:09-21-2021 7 cigs da y Alcohol Use Standard Drinks/Week Comments No 0 (1 standard drink = 0.6 oz pur e alcohol) PHQ-2 Answer Date Recorded PHQ Adult Total Score 0 07/25/2023 Hunger Vital Sign Answer Date Recorded Within the past 12 months, y ou worried that your food would run out before you got the money to buy more. Never true 07/25/20 23 Within the past 12 months, t he food you bought just didn't last and you didn't have money to get more. Never true 07/25/2023 Sex and Gender Information Value Date Recorded Sex Assigned at Female 06/11/2019 11:08 AM EDT Gender Identity Female 06/11/2019 11:08 AM EDT Sexual Orientation Straight 06/11/2019 11 :08 AM EDT Job Start Date Occupation Industry Not on file Not on file Not on file documented as of this encounter Functional Status Functional Status Response Date of Assess ment Are you deaf or do you have serious difficulty h earing? No 08/30/2023 Are you blind or do you have serious difficulty seeing, even when wearing glasses? No 08/30/2023 Do you have serious difficul ty walking or climbing stairs? (5 years old or older) Yes 08/30/2023 Do you have difficulty dress ing or bathing? (5 years old or older) No 08/30/2023 Because of a physical, menta l, or emotional condition, do you have difficulty doing errands alone such as visiting a doctor s office or shopping? (15 years old or older) Yes 08/30/19 24 Cognitive Status Response Date of Assessm ent Because of a physical, menta l, or emotional condition, do you have serious difficulty concentrating, remembering, or making decisions? (5 years old or older) No 08/30/2023 documented as of this encounter Miscellaneous Notes * Telephone Encounter - Taylor Mackey, QUALITY ASSURANCE TECH - 09/02/2023 11:34 AM EST Alexandra Arguello was referred as a potential candidate for enrollment for [facility]. A review of this chart was completed and: Alexandra does not meet criteria for enrollment into [facility]. Referral Source: TENA Daily Referral List Criteria for Ineligibility: Not Located in Service Area Referring care team was notified via : [employer] communication Pt does live in [facility] service area Elevated to [facility] leadership, pt does not meet criteria for [facility] services Pt would benefit from referral referral placed documented in this encounter Plan of Treatment Upcoming Encounters Date Type Department Care Team (Late st Contact Info) Description 09/11/2023 11:00 AM EST Office Visit [facility] [address] [place] [address] Adolph Aldridge MD [address] [place] [address] Scheduled Referrals Name Type Priority Associated Diagnoses Orde r Schedule POPULATION HEALTH REFERRAL OP Referral Within 10 days (routine) Major depressive disorder, recurrent, in partial remission (HCC) Bipolar disorder, in partial remission, most recent episode depressed (HCC) Ordered: 09/02/2023 Health Maintenance Due Date Last Done Comments DISCUSS TOBACCO CESSATION (REFER TO SMARTSET #5910) 1985 HPV/Co-Test 11/14/2015 COVID-19 Vaccine (3 - Moderna risk series) 01/11/2021 12/14/2020, 11/16/2020 Diabetic Eye Exam 06/21/2021 06/21/2020, , 01/25/2014, Additional history exists DTaP,Tdap,and Td Vaccines (7 - Td or Tdap) 10/09/2021 10/09/2011, 08/12/2002, 07/25/1987, Additional history exists Diabetic Foot Exam 03/10/2022 03/10/2021, 0 03/10/2020, 11/08/2017, Additional history exists Cervical Cancer Screening 05/12/2023 Pap Smear 05/12/2023 05/12/2020, 04/2018, 09/25/2013, Additional history exists HbA1c 02/28/2024 08/30/2023, 10/2022, 07/26/2022, Additional history exists Depression Screening 07/25/2024 07/25/2023 COLONOSCOPY-EVERY 5 YRS AGES 18-100 03/29/2028 03/29/2023, 10/01/2017, 10/01/2017 Pneumococcal Vaccine: Pediatrics (0 to 5 Years) and At-Risk Patients (6 to 64 Years) (4 - PPSV23 or PCV20) 2050 03/10/2020, 03/26/2017, 12/05/2006 Hepatitis B Completed 05/21/1998, 11/25, 11/17/1997 Influenza Vaccine (FLU shot) Completed 08/2022, 05/26/2020, 05/26/2020, Additional history exists GARDASIL-HPV IMMUNIZATION SERIES Aged Out No longer eligible based on patient's age to complete this topic MENINGOCOCCAL (MENACTRA/MENVEO) Aged Out No longer eligible based on patient's age to complete this topic documented as of this encounter Medical Devices Implanted Type Area Tax Services Professional Device Identifier Shelf Expiration Date Model / Serial / Lot Stent Protege Gps [id number] - [id number] Implanted:Qty : 1 on 09/29/2020 by Carmelo Ramos MD [place] [facility] [place]: Chest [employer] : VASCULAR [id number] 09/20/2022 [id number] / / [id number] Stent Viab [id number] - [id number] Implanted:Qty : 1 on 04/16/2023 by Carmelo Ramos MD at [place] [facility] [place] Right: Subclavian [employer] [id number] 01/26/2026 [id number] / [id number] / [id number] documented as of this encounter Visit Diagnoses Diagnosis Major depressive disorder, recurrent, in partial remission (HCC)- Primary Major depressive disorder, recurrent episode, in partial or unspecified remission Bipolar disorder, in partial remission, most recent episode depressed (HCC) Bipolar I disorder, most recent episode (or current) depressed, in partial or unspecified remission documented in this encounter Advance Directives Latest Code Status on File Code Status Date Activated Date Inactivated Comments Full Code 08/30/2023 3:26 AM 09/01/2023 10:35 PM This o rder reflects the patients wishes and were consensually agreed upon. Question Answer Comments Discussion of Advance Directives occurred with: Patient Code Status History Code Status Date Activated Date Inactivated Comments Full Code 11/01/2020 2:46 PM 11/03/2020 5:37 PM This o rder reflects the patients wishes and were consensually agreed upon. Question Answer Comments Discussion of Advance Directives occurred with: Patient Does the patient have a Living Will? No Does the patient have Health Care Power of Tool Filer Hand? No Full Code 09/29/2020 10:35 AM 10/01/2020 6:30 PM This o rder reflects the patients wishes and were consensually agreed upon. Question Answer Comments Discussion of Advance Directives occurred with: Patient Full Code 08/01/2019 2:13 AM 08/02/2019 2:55 PM This order reflects the patients wishes and were consensually agreed upon. Question Answer Comments Discussion of Advance Directives occurred with: Patient Full Code 01/25/2017 3:46 PM 01/26/2017 10:40 PM This o rder reflects the patients wishes and were consensually agreed upon. Question Answer Comments Discussion of Advance Directives occurred with: Patient Does the patient have a Living Will? No Does the patient have Health Care Power of Tool Filer Hand? No Care Teams Director Digital Analytics Relationship Specialty Start Date End Date Adolph Aldridge MD [address] [facility] [id number] PCP - General Family Medicine 10/21/18 documented as of this encounter
--- OUTSIDE RECORDS SUMMARY | 2023-09-03 08:34 | External Medical Summary ---
Author Name Unknown Address Unknown Organization : Laboratory Report Ordering Provider Test Date Status PATRICIA BETHEA 09/01/2023 11:56:57 Final Observation Date Value Abnormality Reference (Units ) Status Glucose Point of Care 09/01/2023 11:56:57 113 70-120 (mg/dL) Final Performing Location
--- OUTSIDE RECORDS SUMMARY | 2023-09-03 08:34 | External Medical Summary | Summary of Care ---
Author Name Unknown Organization [facility] Address [address] [place] [address] Phone [phone] Care Team Providers Care Open[employer] Cloud Consulting Architect Name Role Phone Adolph Aldridge MD Primary Care Provider Reason for Visit * Auth/Cert Specialty Diagnoses / Procedures Referred By Contac t Referred To Contact Diagnoses Hyperkalemia ABHILASH (acute kidney injury) (HCC) renal failure, hyperkalemia, emergent dialysis Referral ID Status Reason Start Date Expiration Date Visits Re quested Visits Authorized [id number] Encounter Details Date Type Department Care Team (Latest Contact Info) Description 08/30/2023 2:05 AM EST - 09/01/2023 6:35 PM EST Hospital Encounter [facility], [facility] [address], [place] [id number] Monico Damian MD [address] [place] [address] Janette Herman MD [address] [place] [address] Chuck Chirinos MD [address] [place] [address] Discharge Disposition: Home - Self Care Allergies Active Allergy Reactions Criticality Noted Date Comments Amoxicillin Low 01/27/2021 Other reaction(s): VOMITING Cefaclor Rash Low 11/23/2011 Cephalosporins Rash Low 05/16/1999 documented as of this encounter (statuses as of 09/02/2023) Medications Medication Sig Dispensed Refills Start Date End Date Status amLODIPine (NORVASC) 10 MG Tablet Take 1 Tablet by mouth at bedtime. 0 0 Active Calcium Acetate (Phos Binder) 667 MG Oral Capsule (Phoslo) Take 3 Caps by mouth three times a day with meals. 270 Cap 3 1 Active Renal Vitamin 0.8 MG Oral Tablet 1 Tab. 0 0 Active Compressor NebulizerIndicati ons:Mild intermittent asthma with exacerbation Inhale via nebulizer. Use as directed.Dx J45.901 (asthma exacerbation) 1 Each 1 1 Active Albuterol Sulfate (2.5 MG/3ML) 0.083% Inhalation Nebulization Solution (Proventil)Indica tions:Mild intermittent asthma with exacerbation Inhale 1 Vial via nebulizer every 4 hours as needed for Wheezing. 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 39 g 3 2 Active Ondansetron HCl 4 MG Oral TabletIndications :Nausea without vomiting Take by mouth 1 Tablet every 6 hours as needed for Nausea. 24 Tablet 0 2 Active OneTouch Delica Plus [id number] ons:DM type 2 with diabetic peripheral neuropathy (HCC),Type 2 diabetes mellitus with hemoglobin A1c goal of less than 7.0% (HCC) use 1 LANCET to TEST BLOOD SUGAR four times a day. DX E11.9 400 Each 3 2 Active Albuterol Sulfate HFA 108 (90 Base) MCG/ACT Inhalation Aerosol SolutionIndicatio ns:Chronic cough,Upper respiratory tract infection, unspecified type Inhale by mouth 2 Puffs every 4 hours as needed for Wheezing. 8 g 6 2 Active Sertraline HCl 100 MG Oral Tablet (Zoloft)Indicatio ns:Bipolar disorder, in partial remission, most recent episode depressed (HCC) Take by mouth 1.5 Tablets in the morning. 135 Tablet 3 2 Active Additional Information Patient taking differently: 100 mgOral Daily(AM),Take with 50 mg for a total of 150 mg daily, Reported on 05/28/2023 OneSPark! 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 16 g 2 2 Active Gabapentin 400 MG Oral Capsule (Neurontin) Take 1 Capsule by mouth in the morning and 1 Capsule before bedtime. 180 Capsule 3 3 Active traZODone HCl 100 MG Oral Tablet (Desyrel)Indicati ons:Insomnia due to other mental disorder Take 2 Tablets by mouth at bedtime. 180 Tablet 3 3 Active Omeprazole 20 MG Oral Capsule Delayed Release (PriLOSEC)Indicat ions:Gastroesopha geal reflux disease, unspecified whether esophagitis present Take 1 Capsule by mouth in the morning. 1 hour before the first meal of the day. 90 Capsule 3 3 Active Varenicline Tartrate 0.5 MG X 11 & 1 MG X 42 Oral Tablet Therapy Pack Take as directed on box 1 Each 3 3 Active Carvedilol 12.5 MG Oral Tablet (Coreg) Take 0.5 Tablets by mouth in the morning and 0.5 Tablets before bedtime. 0 Active hydrOXYzine HCl 25 MG Oral TabletIndications :Depression with anxiety Take 1 Tablet by mouth every 6 hours as needed for Anxiety. 60 Tablet 2 3 Active LORazepam 0.5 MG Oral Tablet (Ativan)Indicatio ns:Panic attack TAKE 1 TABLET BY MOUTH EVERY 8 HOURS NEEDED FOR PANIC ATTACKS AND BEFORE DIALYSIS Strength: 0.5 mg 20 Tablet 0 3 Active carBAMazepine ER 200 MG Oral Tablet Extended Release 12 Hour (Tegretol-Xr) Take 1 Tablet by mouth 2 times a day in the morning and at bedtime. 0 Active medroxyPROGESTERo ne Acetate 150 MG/ML Intramuscular Suspension (Depo-Provera) Inject 150 mg into a large muscle every 3 months. 1 mL 3 3 Active PEG [id number]-Na Cl-NaSulf 236 GM Oral Solution Reconstituted Please take according to Colonoscopy prep instructions. 4000 mL 0 3 Active Benzonatate 100 MG Oral CapsuleIndication s:Chronic cough Take 2 Capsules by mouth 3 times a day as needed for Cough. 30 Capsule 1 3 Active Sertraline HCl 50 MG Oral Tablet (Zoloft) TAKE 1 TABLET BY MOUTH ONCE DAILY ALONG WITH THE 100MG FOR A TOTAL OF 150MG DAILY 0 3 Active Cinacalcet HCl 60 MG Oral Tablet (Sensipar) Take 1 Tablet by mouth in the morning. 0 3 Active Cinacalcet HCl 90 MG Oral Tablet (Sensipar) Take 1 tablet by mouth daily with dinner 30 Tablet 11 3 Active amLODIPine Besylate 10 MG Oral Tablet (Norvasc) Take 1 Tablet by mouth in the morning. 30 Tablet 0 4 10/02/19 24 Active cloNIDine HCl 0.2 MG Oral Tablet (Catapres) Take 1 Tablet by mouth in the morning. 30 Tablet 0 4 10/02/19 24 Active hydrALAZINE HCl 100 MG Oral Tablet Take 1 Tablet by mouth in the morning and 1 Tablet at noon and 1 Tablet before bedtime. 90 Tablet 0 4 10/01/19 24 Active traMADol HCl 50 MG Oral Tablet (Ultram) Take 1 Tablet by mouth 2 times a day as needed for Pain, Severe for up to 10 doses. 10 Tablet 0 4 Active Dicyclomine HCl 10 MG Oral Capsule (Bentyl) take 1 capsule by mouth four times a day if needed for cramping (FOR ABDOMINAL PAIN) 60 Capsule 3 3 09/01/19 24 Discontinued Azithromycin 250 MG Oral Tablet (Zithromax)Indica tions:Bronchitis, complicated Take 2 tabs by mouth on the first day, then 1 tab daily on days two through five 6 Tablet 0 3 09/01/19 24 Discontinued Miconazole 3 200 MG Vaginal Suppository (Miconazole Nitrate)Indicatio ns:Yeast vaginitis Administer into the vagina every evening for 6 days. 6 Suppository 1 3 09/01/19 24 Discontinued Doxycycline Hyclate 100 MG Oral CapsuleIndication s:Multifocal pneumonia,SOB (shortness of breath) Take 1 Capsule by mouth in the morning and 1 Capsule before bedtime. Do all this for 10 days. Until gone.. 20 Capsule 0 3 09/01/19 24 Discontinued predniSONE 20 MG Oral Tablet (Deltasone)Indica tions:Multifocal pneumonia,SOB (shortness of breath) Take 1 Tablet by mouth in the morning for 5 days. 5 Tablet 0 3 09/01/19 24 Discontinued Lidocaine HCl 2 % External GelIndications:Ye ast vaginitis Apply topically to affected area once for 1 dose. Apply to labia majora and minora - use a dopplo the size of a quarter on each size, wash hands thoroughly when done. 30 mL 0 3 09/01/19 24 Discontinued documented as of this encounter (statuses as [...] and PP sugars <120. Report levels to [facility] department weekly. 10. Advised patient that Glyburide, Metformin, and insulin may be safely used during for the control of blood sugar levels. Alexandra will begin her insulin therapy today. 11. Dietary consult to be done to instruct patient on appropriate nutrition and diet to aid in control of blood sugars. 12. Recommend urine culture each trimester. 13. Recommend [facility] ultrasound for limited anatomy at 12-14 weeks, for full anatomy at 18-20 weeks, and for echocardiography at 22-24 weeks. 14. Start testing with twice weekly NST and weekly MATTHEW beginning at 32 weeks or earlier if any evidence of uncontrolled blood sugars, renal abnormalities, or HTN. 15. Recommend [facility] growth ultrasound every 4 weeks after 24 [...] if early screen is normal. 5. Recommend MFM ultrasound for anatomy screen at 20 weeks [...] CURRIE, contaminated patient to repepat OB [place] 03/19/2011 01/29/20 17 Overview: 03/19/2011 Needs enrolled in [facility] once MA active. Marva RN- Enrolled 03/27/2011 Marva CURRIE Patient declines due [...] Obesity Taxonomy STRAIN OF LEFT KNEE WITH ALEXANDRA PECTED MILD DISLOCATION OF PATELLA 04/14/2002 04/18/2011 [...] on file documented as of this encounter Last Filed Vital Signs Vital Sign Reading Time Taken Comments Blood Pressure 166/63 09/01/2023 3:16 PM EST Pulse 68 09/01/2023 3:16 PM EST Temperature 36.8 C (98.2 F) 09/01/2023 3:16 PM ES T Respiratory Rate 16 09/01/2023 3:16 PM EST Oxygen Saturation 99% 09/01/2023 3:16 PM EST Inhaled Oxygen Concentration - - Weight 83 kg (183 lb) 09/01/2023 3:08 AM EST Height 167.6 cm (5' 6") 08/30/2023 2:28 AM EST Body Mass Index 29.54 08/30/2023 2:28 AM EST documented in this encounter Functional Status Functional Status Response [...] (15 years old or older) Yes 08/30/19 Cognitive Status Response Date of Assessm ent Because of a physical, menta l, or emotional condition, do you have serious difficulty concentrating, remembering, or making decisions? (5 years old or older) No 08/30/2023 documented as of this encounter Discharge Instructions * Discharge Instr - AVS* Chuck Chirinos MD - 09/01/2023 3:54 PM EST Discharge Date: 09/01/2023 The information below provides you with the instructions and the list of medications you need to betaking following discharge from the hospital. If you have any questions, please ask before leaving. If you have questions after leaving, you can reach us at the numbers below. YOUR HOSPITAL PROVIDERS: Discharging Provider: Chuck Mcpherson MD Provider Department: Hospital Medicine To reach this Provider Saturday through Saturday (8:00 AM to 4:30 PM) for any questions or test results: Call [phone] For after-hours concerns: Call [phone] and have your provider paged, or the provider salesperson furniture for the Department of Hospital Medicine paged. Please note, the discharging provider will not be able to provide you with any medications refills.Please discuss these with your primary care provider. Worsening Symptoms: If you have new symptoms, or your symptoms get worse, please contact your Discharge Provider or Primary Care Provider (PCP). If these providers are not available, you can go to your local [facility] or Urgent Care Clinic during their business hours. In an EMERGENCY situation: Call 1 or go to the nearest emergency room. A BRIEF SUMMARY OF YOUR HOSPITAL STAY: You came to the hospital with: complaint of lethargy, missed dialysis Your main diagnosis at discharge was: Hyperkalemia and fluid overload due to missed dialysis Operations & Procedures performed: none Complications: none applicable Inpatient test results that are pending at discharge: none Advance Directive Documented: Advance Directive Does the Patient have an Advance Directive? Yes YOUR FOLLOW UP APPOINTMENTS: Primary Care Provider Information: PCP: Adolph Aldridge MD [address] [place] [phone] (office) [phone] (fax) An appointment was requested with your PCP (Adolph Aldridge MD) within 7 days. (Please take this form to this visit with your primary care physician.) You need the following studies in the future: none INSTRUCTIONS: Diet: Renal diet Activity: Flatfoot weightbearing in the RLE with crutches Additional Instructions: - Call your primary care physician or seek medical attention if you have increased weight, shortness of breath, worsening weakness and lethargy. documented in this encounter Progress Notes * Darrel Morrissey MD - 09/01/2023 6:35 PM EST PROGRESS NOTE - Nephrology [facility] [address] Patient Name: Alexandra Arguello Date: 09/01/2023 Time: 9:42 PM Location: [address] Subjective : Underwent HD today Current medication list: reviewed Objective : Most Recent Vital Signs: BP: 166 mmHg/63 mmHg (09/01/231515) Pulse: 68 (09/01/231515) Temp: 36.78 C (09/01/231515) Resp: 16 (09/01/231515) SpO2: 99 % (09/01/231515) Intake/Output Summary (Last 24 hours) at 09/01/20232141 Last data filed at 09/01/2023 1034 Gross per 24 hour Intake 0 ml Output 3000 ml Net -3000 ml PHYSICAL EXAMINATION: General: No acute distress Eye: anicteric sclera HENT: Normocephalic, atraumatic , oral mucosa moist Neck: Supple Respiratory: Lungs are clear to auscultation Cardiovascular: S1S2 normal Extremities: no edema b/l Gastrointestinal: Soft, Non-tender Musculoskeletal: Normal range of motion Integumentary: Warm, Dry, [place] Neurologic: Alert & Oriented Psychiatric: Cooperative, Non-suicidal LUE AVF + LABS: reviewed Lab results within last 7 days (see chart for full results) Units 09/01/23 0446 08/31/23 0703 08/30/232011 Sodium mmol/L 135 136 135 Potassium mmol/L 4.3 5.7* 4.9 Chloride mmol/L 93* 95* 92* CO2 mmol/L 22 24 BUN mg/dL 58* 51* 43* Creatinine mg/dL 10.2* 9.3* 8.2* Lab results within last 7 days (see chart for full results) Units 08/30/23 0326 HGB g/dL 11.9* PERTINENT IMAGING INFO: Prior imaging reviewed Assessment and plan # End-stage renal disease on hemodialysis # Access # Hypertension # Secondary hyperparathyroidism/hyperphosphatemia # Anemia # Medication dosing/toxicity - dose medications for eGFR < 10 mL/min Dialysis as per schedule--> seen on HD today - Continue renal vitamin--> at risk for water sunny vitamin def - Renal dialysis diet - c/w alodipine , coreg , hydralazine If remains uncontrolled can consider adding clonidine - continue with phosphorus binders - transfuse per primary team parameters (Hb < 7.0) We appreciate the opportunity of participating in Ms. Arguello's care * Chuck Chirinos MD - 09/01/2023 1:25 PM EST Images from the original note were not included. [facility] G219/A INTERVAL HISTORY: -NAEON -underwent HD- willam well -seen by ortho yesterday, no surgical intervention, will be followed outpatient. -Medically ready for discharge, unable to leave because ofweather conditions and lack of ride Objective Physical Exam Most Recent Vital Signs: BP: 146 mmHg/69 mmHg (09/01/23 1200) Pulse: 74 (09/01/23 1020) Temp: 37 C (09/01/23 1020) Resp: 18 (09/01/23 1020) SpO2: 97 % (09/01/23 0308) Constitutional: NAD HEENT: puffy face NC/AT, no masses / Sclera clear and EOMI, no nystagmus / No lip/oral lesions / supple, trachea midline CV: Regular rhythm and rate, no murmur, gallops or rubs Respiratory: Normal resp effort on room air, no accessory muscle use, no crackles, wheezing, rhonchi Abdomen: Soft, nontender, nondistended, normoactive bowel sounds Musculoskeletal: b/l hip pain, using crutches to ambulate Skin: Dry, warm, intact without rashes or lesions Neuro: A&Ox3, no focal neurological deficits; B/L LE and UE strength and sensations equal and intact, babinski negative Psych: Appropriate mood/affect, answers questions appropriately Peripheral Line Right;Upper Arm 20 Gauge (Active) Number of days: 2 Hemodialysis Arteriovenous Fistula Left Upper Arm (Active) Number of days: 2562 Hemodialysis Arteriovenous Fistula Right Upper Arm (Active) Number of days: 971 STUDIES: Encounter Orders Labs and other studies reviewed in epic by me Assessment and Plan IMPRESSION : Principal Problem: Admission for dialysis (HCC) Active Problems: Type 2 diabetes mellitus with hemoglobin A1c goal of less than 7.0% ([facility]) Chronic renal allograft nephropathy Depression with anxiety ESRD on dialysis ([facility]) HTN, goal below 140/90 Bipolar disorder, in partial remission, most recent episode depressed ([facility]) Gastro-esophageal reflux disease without esophagitis Cardiomegaly Closed nondisplaced fracture of pelvis with routine healing Resolved Problems: * No resolved hospital problems. * DIFFERENTIAL AND PLAN: 37-year-old with ESRD admitted for emergent dialysis after having missed 2 sessions # missed HD session # hyperkalemia -HD 08/30 and 08/31 w/o events -telemetry reviewed by me, no adverse events, now dc -potassium 5.7 >4.3, S/P Lokelma -repeat RFP tomorrow -Continue SENIOR INFORMATION SECURITY ANALYST Cinacalcet, Renal vitamin and Calcium acetate # uncontrolled hypertension -amlodipine 10 daily -Coreg 6.25 twice daily -hydralazine 100 q.8h -clonidine added per Nephrology recs from yesterday's note # Nondisplaced right medial superior pubic ramus fracture -x-ray pelvis reviewed -fall recently, using crutches to ambulate, has not been evaluated by Orthopedics per patient -ortho consulted and note reviewed from 08/31-no surgical intervention, outpatient follow-up #Type 2 diabetes mellitus - low-dose SSI with a.c. HS glucose checks #Gastro-esophageal reflux disease without esophagitis -Chronic, stable, continue home regimen #Bipolar disorder -stable, continue SENIOR INFORMATION SECURITY ANALYST carbamazepine, sertraline and trazodone PHARMACOLOGIC VTE PROPHYLAXIS: hEParin CODE STATUS: Full Code EXPECTED DISCHARGE DATE: 09/01/2023 I spent a total of 51 minutes coordinating, documenting, and providing care for this patient excluding time spent in the performance of separately billed services. * Darrel Morrissey MD - 08/31/2023 5:21 PM EST PROGRESS NOTE - Nephrology [facility] [id number] Patient Name: Alexandra Arguello Date: 08/31/2023 Time: 5:21 PM Location: [address] Subjective : No chest pain , No SOB Current medication list: reviewed Objective : Most Recent Vital Signs: BP: 185 mmHg/71 mmHg (08/31/231455) Pulse: 67 (08/31/231455) Temp: 37.5 C (08/31/231455) Resp: 18 (08/31/231455) SpO2: 96 % (08/31/231455) Intake/Output Summary (Last 24 hours) at 08/31/2023 1721 Last data filed at 08/31/2023 1500 Gross per 24 hour Intake 150 ml Output -- Net 150 ml PHYSICAL EXAMINATION: General: No acute distress Eye: anicteric sclera HENT: Normocephalic, atraumatic , oral mucosa moist Neck: Supple Respiratory: Lungs are clear to auscultation Cardiovascular: S1S2 normal Extremities: no edema b/l Gastrointestinal: Soft, Non-tender Musculoskeletal: Normal range of motion Integumentary: Warm, Dry, [place] Neurologic: Alert & Oriented Psychiatric: Cooperative, Non-suicidal LUE AVF + LABS: reviewed Lab results within last 7 days (see chart for full results) Units 08/31/23 0703 08/30/23201108/30/23 0326 Sodium mmol/L 136 135 131* | 131* Potassium mmol/L 5.7* 4.9 6.2* | 6.2* Chloride mmol/L 95* 92* 81* | 81* CO2 mmol/L 22 24 22 | 22 BUN mg/dL 51* 43* 104* | 102* Creatinine mg/dL 9.3* 8.2* 15.1* | 15.0* Lab results within last 7 days (see chart for full results) Units 08/30/23 0326 HGB g/dL 11.9* PERTINENT IMAGING INFO: Prior imaging reviewed Assessment and plan # End-stage renal disease on hemodialysis # Access # Hypertension # Secondary hyperparathyroidism/hyperphosphatemia # Anemia # Medication dosing/toxicity - dose medications for eGFR < 10 mL/min Dialysis as per schedule--> plan for another session tomorrow 09/01 - Continue renal vitamin--> at risk for water sunny vitamin def - Renal dialysis diet - c/w alodipine , coreg , hydralazine If remains uncontrolled can consider adding clonidine - c/w lokelma - continue with phosphorus binders - transfuse per primary team parameters (Hb < 7.0) We appreciate the opportunity of participating in Ms. Arguello's care * Chuck Chirinos MD - 08/31/2023 2:30 PM EST Images from the original note were not included. [facility] [address] G219/A INTERVAL HISTORY: -NAEON -K 5.7, lokelma given Objective Physical Exam Most Recent Vital Signs: BP: 187 mmHg/76 mmHg (08/31/23 1118) Pulse: 73 (08/31/23 111) Temp: 36.11 C (08/31/23 111) Resp: 18 (08/31/23 1118) SpO2: 100 % (08/31/23 111) Constitutional: NAD HEENT: puffy face NC/AT, no masses / Sclera clear and EOMI, no nystagmus / No lip/oral lesions / supple, trachea midline CV: Regular rhythm and rate, no murmur, gallops or rubs Respiratory: Normal resp effort on room air, no accessory muscle use, no crackles, wheezing, rhonchi Abdomen: Soft, nontender, nondistended, normoactive bowel sounds Musculoskeletal: b/l hip pain, using crutches to ambulate Skin: Dry, warm, intact without rashes or lesions Neuro: A&Ox3, no focal neurological deficits; B/L LE and UE strength and sensations equal and intact, babinski negative Psych: Appropriate mood/affect, answers questions appropriately Peripheral Line Right;Upper Arm 20 Gauge (Active) Number of days: 1 Peripheral Line Left;Upper (Active) Number of days: Hemodialysis Arteriovenous Fistula Left Upper Arm (Active) Number of days: 2561 Hemodialysis Arteriovenous Fistula Right Upper Arm (Active) Number of days: 970 STUDIES: Encounter Orders Labs and other studies reviewed in [facility] by me Assessment and Plan IMPRESSION : Principal Problem: Admission for dialysis ([facility]) Active Problems: Type 2 diabetes mellitus with hemoglobin A1c goal of less than 7.0% ([facility]) Chronic renal allograft nephropathy Depression with anxiety ESRD on dialysis ([facility]) HTN, goal below 140/90 Bipolar disorder, in partial remission, most recent episode depressed (HCC) Gastro-esophageal reflux disease without esophagitis Cardiomegaly Resolved Problems: * No resolved hospital problems. * DIFFERENTIAL AND PLAN: 37-year-old with ESRD admitted for emergent dialysis after having missed 2 sessions # missed HD session # hyperkalemia -HD 08/30 w/o events -telemetry reviewed by me, no adverse events -potassium 5.7 today, Lokelma given -repeat RFP tomorrow -Continue SENIOR INFORMATION SECURITY ANALYST Cinacalcet, Renal vitamin and Calcium acetate # uncontrolled hypertension -amlodipine 10 daily -Coreg 6.25 twice daily -hydralazine 100 q.8h # Nondisplaced right medial superior pubic ramus fracture -fall recently, using crutches to ambulate, has not been evaluated by Orthopedics per patient -ortho consulted #Type 2 diabetes mellitus - low-dose SSI with a.c. HS glucose checks #Gastro-esophageal reflux disease without esophagitis -Chronic, stable, continue home regimen #Bipolar disorder -stable, continue SENIOR INFORMATION SECURITY ANALYST carbamazepine, sertraline and trazodone PHARMACOLOGIC VTE PROPHYLAXIS: hEParin CODE STATUS: Full Code EXPECTED DISCHARGE DATE: 08/31/2023 I spent a total of 58 minutes coordinating, documenting, and providing care for this patient excluding time spent in the performance of separately billed services. documented in this encounter H&P Notes * Zechariah Abraham CRNP - 08/30/2023 3:27 AM EST HISTORY AND PHYSICAL EXAMINATION - Hospital Medicine [facility] [id number] Name: Alexandra Arguello Location: [facility] G219/A Date: 08/30/2023 Time: 3:27 AM PRESENTING PROBLEM: Emergent dialysis HPI: Alexandra Arguello is a 37 year old female with a significant medical history of DM 2, ESRD on HD MWF, depression anxiety, HTN, bipolar, GERD cardiomegaly, HX renal transplant who was transferred from [facility] for emergent dialysis. majority HPI gathered from chart review and handoff from [facility]. Patient initially presented the emergency department with chief complaint of SOB and chest pain, she was assessed there and it was determined that she required more urgent dialysis than could be provided at that facility and was transferred here. Per reports appears patient's last dialysis session was 6 days ago. Labs were obtained at that facility showed K +6.9 she was treated with amp ofcalcium gluconate, an amp of sodium bicarb, 10 units IV insulin and IV glucose per their protocol. On arrival to [facility] patient is extremely lethargic requiring constant stimulation in order to stay awake however patient was uncooperative with any questions and would quickly fallback asleep with sonorous snoring. 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 Metabolic acidosis 11/05/2014 Migraine without aura, intractable Ovarian cyst Pre-transplant evaluation for kidney transplant 02/04/2014 Tobacco abuse PAST SURGICAL HISTORY: Past Surgical History: Procedure Laterality Date AV ACCESS, DIRECT ANASTOMOSIS Right 04/28/2015 ARTERIOVENOUS ANASTOMOSIS OPEN DIRECT ANY SITE performed by Carmelo Ramos MD at OR [facility] AV ACCESS, DIRECT ANASTOMOSIS Right 01/03/2021 ARTERIOVENOUS ANASTOMOSIS OPEN DIRECT ANY SITE performed by Carmelo Ramos MD at [facility] DELIVERY DELIVERY ONLY W/ 10/08/2011 DELIVERY AND CARE performed by ANDRA SMITH at OB [facility] COLONOSCOPY, DIAGNOSTIC (RECTUM) 10/01/2017 adenomatous polyp, diverticulosis, repeat 5 yrs/[facility] CORONARY ANGIOGRAPHY W/LEFT HEART CATH 01/26/2017 CORONARY ANGIOGRAPHY W/LEFT HEART CATH performed by Andra Velasquez MD at CARDIAC LABS [facility] CYSTOSCOPY 03/17/2014 With stent removal EGD, FLEXIBLE, DIAGNOSTIC 09/11/2022 mild gastric irriation on / [facility] EGD, FLEXIBLE,W/ENDOSCOPIC US 06/14/2017 mild-mod gastric inflammation/[facility] INSER MARI CAT,W/O PUMP;5YR/OLD 11/05/2014 INSERT TUNNELED CENTRAL VENOUS CATHETER AGE 5 OR OLDER performed by Danny Godinez MD at RADIOLOGY [facility] INTRO CATH DIALYSIS CIRCUIT DX ANGIOGRAPHY FLUORO S&I Left 02/25/2020 AV FISTULOGRAM DIAGNOSTIC performed by Theo Huang MD at OR [facility] INTRO CATH DIALYSIS CIRCUIT W/TRANSCATH PLACEMENT IV STENT Right 05/22/2022 AV FISTULOGRAM STENT & PERIPHERAL ANGIOPLASTY performed by Carmelo Ramos MD at OR [facility] INTRO CATH DIALYSIS CIRCUIT W/TRANSLUM BALLOON ANGIOPLASTY Left 02/25/2020 AV FISTULOGRAM & PERIPHERAL ANGIOPLASTY performed by Theo Huang MD at OR [facility] INTRO CATH DIALYSIS CIRCUIT W/TRANSLUM BALLOON ANGIOPLASTY Left 09/29/2020 AV FISTULOGRAM & PERIPHERAL ANGIOPLASTY performed by Carmelo Ramos MD at OR [facility] INTRO CATH DIALYSIS CIRCUIT W/TRANSLUM BALLOON ANGIOPLASTY Left 11/02/2020 AV FISTULOGRAM & PERIPHERAL ANGIOPLASTY performed by Carmelo Ramos MD at OR [facility] INTRO CATH DIALYSIS CIRCUIT W/TRANSLUM BALLOON ANGIOPLASTY Right 06/15/2021 AV FISTULOGRAM & PERIPHERAL ANGIOPLASTY performed by Balbir Santiago MD at OR [facility] INTRO CATH DIALYSIS CIRCUIT W/TRANSLUM BALLOON ANGIOPLASTY Right 04/16/2023 AV FISTULOGRAM & PERIPHERAL ANGIOPLASTY performed by Carmelo Ramos MD at [facility] IOF CT GUIDED NEEDLE BIOPSY 05/18/2013 CT GUIDED NEEDLE ASPIRATION BIOPSY performed by Tremaine Rodríguez PA-C at RADIOLOGY [facility] KNEE ARTHROSCOPY, DIAGNOSTIC 10/27/2008 Knee Scope,Diagnostic LAPAROSCOPY; CHOLECYSTECTOMY N/A 12/18/2016 LAPAROSCOPIC CHOLECYSTECTOMY [facility] DR. DIAZ 12/18/16 LASIK SURGERY 1987 LIGATE/CUT OVIDUCT(S) 10/10/2011 REMOV MARI BENJI CATH W/O PORT 11/24/2014 REMOVAL OF TUNNELED CENTRAL VENOUS CATHETER performed by Danny Godinez MD at RADIOLOGY [facility] REMOV MARI BENJI CATH W/O PORT Left 09/29/2020 REMOVAL OF TUNNELED CENTRAL VENOUS CATHETER performed by Carmelo Ramos MD at [facility] RENAL BIOPSY, PERCUTANEOUS (TROCAR/NEEDLE) N/A 11/16/2014 RENAL BIOPSY PERCUTANEOUS performed by Fer Sharp MD at [facility] RENAL BIOPSY, PERCUTANEOUS (TROCAR/NEEDLE) N/A 11/23/2014 RENAL BIOPSY PERCUTANEOUS performed by Fer Sharp MD at OR [facility] THROMBECTOMY, PERCUT, THROMBOLYTIC INJECT Left 09/29/2020 PERCUTANEOUS MECHANICAL VENOUS THROMBECTOMY performed by Carmelo Ramos MD at OR [facility] TRANSCATH PLACMENT IV STENT CENTRAL DIALYSIS SEGMENT W/IMAGING Left 09/29/2020 INTRAVASCULAR STENT CENTRAL DIALYSIS SEGMENT performed by Carmelo Ramos MD at OR [facility] TRANSPLANTATION OF KIDNEY 02/18/2014 RENAL TRANSPLANT performed by Faiza Salinas MD at OR [facility] FAMILY HISTORY: Family History Problem Relation Age of Onset Diabetes Mother Thyroid Disorder Mother hyperthyroidism Gastro-intestinal disorder Father crohn's Mental Disorder Father depression - suicide Hypertension Grandmother (Maternal) Hypertension Sister Thyroid Disorder Sister hypothyroidism Other (hyperlipidemia [Other]) Grandfather (Maternal) Heart Disorder Brother age 19 months - only 2 working chambers; also with esophageal problems Other (?lupus [Other]) Grandmother (Paternal) SOCIAL HISTORY: Social History Tobacco Use Smoking status: Every Day Packs/day: 0.50 Years: 11.00 Additional pack years: 0.00 Total pack years: 5.50 Types: Cigarettes Last attempt to quit: 12/2021 Years since quittin.6 Smokeless tobacco: Never Tobacco comments: 09-21-2021 7 cigs day Vaping Use Vaping Use: Never used Substance Use Topics Alcohol use: No Drug use: 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 ALLERGIES: Amoxicillin, Cefaclor, and Cephalosporins ROS: As per HPI, all other systems reviewed and negative PHYSICAL EXAMINATION: Most Recent Vital Signs: BP: 196 mmHg/92 mmHg (08/30/23306) Pulse: 81 (08/30/23306) Temp: 36.39 C (08/30/23306) Resp: 22 (08/30/23306) SpO2: 95 % (08/30/23306) Constitutional: Obese, lethargic HEENT: normocephalic, atraumatic; no masses, tenderness, or adenopathy Eyes: PERRLA, sclera and conjunctiva normal Neck: supple, normal range of motion CV: Normal Rate and Normal Rhythm, no murmur, gallops or rub Chest: normal respiratory effort, lungs clear to auscultation Abdomen: normal: soft, bowel sounds normal, no masses, tenderness or organomegaly Musculoskeletal: (-) negative Extremities: no clubbing, cyanosis, or edema, otherwise grossly normal, warm, and dry Skin: warm, dry, intact: Neuro: alert, oriented to person, place, and time, normal mental status exam Psych: normal mood and affect, nonsuicidal, judgement normal, memory normal LABS: Labs reviewed as indicated below: Latest Reference Range & Units 08/30/23 03:08 08/30/23 03:26 Temperature C 37.0 pH, Venous 7.320 - 7.430 units 7.301 (L) pCO2, Venous 40.0 - 60.0 mmHg 51.5 pO2, Venous 25.0 - 50.0 mmHg 32.3 O2 Content, Venous 7.0 - 18.0 %vol 7.1 Oxyhemoglobin, Venous 40.0 - 85.0 % total Hgb 47.3 Base Excess, Venous -2.0 - 2.0 mmol/L -1.6 Carboxyhemoglobin, Whole Blood <=1.5 % total Hgb 2.1 (H) Methemoglobin, Whole Blood <=1.5 % total Hgb 0.8 Reduced Hemoglobin, Venous % total Hgb 49.8 Bicarbonate, Whole Blood 23.0 - 31.0 mmol/L 24.6 Glucose Meter 70 - 120 mg/dL 102 CBC Rpt ! CBC WITH WBC DIFFERENTIAL Rpt ! WBC 4.00 - 10.80 K/uL 6.31 HGB 12.0 - 15.3 g/dL 11.9 (L) Hemoglobin, Whole Blood 12.0 - 15.3 g/dL 10.7 (L) HCT 36.0 - 45.2 % 39.1 MCV 81.5 - 97.5 fL 106.3 PLT 140 - 400 K/uL 107 (L) Absolute Neutrophils 1.80 - 7.70 K/uL 4.54 Absolute Lymphocytes 1.00 - 4.80 K/ul 1.10 Absolute Monocytes 0.00 - 1.10 K/uL 0.51 Absolute Eosinophils 0.00 - 0.70 K/uL 0.08 Absolute Basophils 0.00 - 0.20 K/uL 0.03 (L): Data is abnormally low (H): Data is abnormally high !: Data is abnormal Rpt: View report in Results Review for more information IMPRESSION and PLAN: Principal Problem: Admission for dialysis (HCC) (POA: Yes) Active Problems: Type 2 diabetes mellitus with hemoglobin A1c goal of less than 7.0% ([facility]) (POA: Yes) Chronic renal allograft nephropathy (POA: Yes) Depression with anxiety (POA: Yes) ESRD on dialysis (HCC) (POA: Yes) HTN, goal below 140/90 (POA: Yes) Bipolar disorder, in partial remission, most recent episode depressed (HCC) (POA: Yes) Gastro-esophageal reflux disease without esophagitis (POA: Yes) Cardiomegaly (POA: Yes) Resolved Problems: * No resolved hospital problems. 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 HS glucose checks Gastro-esophageal reflux disease without esophagitis Chronic, stable, continue home regimen Bipolar disorder, in partial remission, most recent episode depressed Chronic, stable, continue home regimen Diet: Renal Dialysis Diet DVT PPx: Heparin 5000 Units Q 8 Hrs Anticipated Date of Discharge: tomorrow Primary Contact: patient CODE STATUS ON ADMISSION: Full Code This patient was discussed with Monico Arguello at the time of admission. [address] Department of Hospital Medicine [facility] Associated attestation - Monico Damian MD - 08/31/2023 7:37 AM EST I have reviewed the advanced practitioner's documentation and agree with the plan of care. I acceptthe responsibility for the associated risk. I spent a total of 35 minutes coordinating, documenting, and providing care for this patient excluding time spent in the performance of separately billed services or time spent by another provider/QHP. documented in this encounter Consult Notes * Walker Alfonso DO - 08/31/2023 5:16 PM ESTAssociated Order(s): ORTHOPAEDICS CONSULT IP Orthopaedic Surgery Consult Name: Alexandra Arguello : 1985 Date of Consultation: August 31, 2023 Location: [address] Reason for Consult: "pt w pelvic rami fx, non displaced" Consult initiated at 5:16 PM when contacted by the consulting health provider. HPI: Alexandra Arguello is a 37 year old female with a relevant PMH of ESRD on dialysis, DM type 2, HTN, depression, and bipolar disorder who presents after a mechanical fall from standing with left hip pain and right pubic pain. She was walking down her sidewalk before when she misstepped into a divot with her right foot and stumbled falling onto her left hip. She felt immediate pain in her left hip and right pubic area. She has been able to walk on both legs since this event. She has a community ambulator at baseline. Her pain has slightly improved since the initial incident. She denies any numbness or tingling in the bilateral lower extremities. No prior h/o of VTE or metal allergy. Denies paresthesias, weakness, fevers/chills, nausea/vomiting, or malaise. Social - half pack per day smoker, THC chewables, denies EtOH Lives in [place] 10 pt ROS otherwise negative Past Medical History: Diagnosis Date Anxiety and depression DM Type 2 causing Renal Dz ESRD (end stage renal disease) ([facility]) H/O kidney transplant 02/18/2014 HTN, goal below 140/90 Hx laparoscopic cholecystectomy 12/18/2016 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 Metabolic acidosis 11/05/2014 Migraine without aura, intractable Ovarian cyst Pre-transplant evaluation for kidney transplant 02/04/2014 Tobacco abuse Past Surgical History: Procedure Laterality Date AV ACCESS, DIRECT ANASTOMOSIS Right 04/28/2015 ARTERIOVENOUS ANASTOMOSIS OPEN DIRECT ANY SITE performed by Carmelo Ramos MD at [facility] AV ACCESS, DIRECT ANASTOMOSIS Right 01/03/2021 ARTERIOVENOUS ANASTOMOSIS OPEN DIRECT ANY SITE performed by Carmelo Ramos MD at [facility] DELIVERY DELIVERY ONLY W/ 10/08/2011 DELIVERY AND CARE performed by ANDRA SMITH at [facility] COLONOSCOPY, DIAGNOSTIC (RECTUM) 10/01/2017 adenomatous polyp, diverticulosis, repeat 5 yrs/[facility] CORONARY ANGIOGRAPHY W/LEFT HEART CATH 01/26/2017 CORONARY ANGIOGRAPHY W/LEFT HEART CATH performed by Andra Velasquez MD at CARDIAC LABS [facility] CYSTOSCOPY 03/17/2014 With stent removal EGD, FLEXIBLE, DIAGNOSTIC 09/11/2022 mild gastric irriation on bx / [facility] EGD, FLEXIBLE,W/ENDOSCOPIC US 06/14/2017 mild-mod gastric inflammation/[facility] INSER MARI CAT,W/O PUMP;5YR/OLD 11/05/2014 INSERT TUNNELED CENTRAL VENOUS CATHETER AGE 5 OR OLDER performed by Danny Godinez MD at RADIOLOGY [facility] INTRO CATH DIALYSIS CIRCUIT DX ANGIOGRAPHY FLUORO S&I Left 02/25/2020 AV FISTULOGRAM DIAGNOSTIC performed by Theo Huang MD at OR [facility] INTRO CATH DIALYSIS CIRCUIT W/TRANSCATH PLACEMENT IV STENT Right 05/22/2022 AV FISTULOGRAM STENT & PERIPHERAL ANGIOPLASTY performed by Carmelo Ramos MD at OR [facility] INTRO CATH DIALYSIS CIRCUIT W/TRANSLUM BALLOON ANGIOPLASTY Left 02/25/2020 AV FISTULOGRAM & PERIPHERAL ANGIOPLASTY performed by Theo Huang MD at OR [facility] INTRO CATH DIALYSIS CIRCUIT W/TRANSLUM BALLOON ANGIOPLASTY Left 09/29/2020 AV FISTULOGRAM & PERIPHERAL ANGIOPLASTY performed by Carmelo Ramos MD at OR [facility] INTRO CATH DIALYSIS CIRCUIT W/TRANSLUM BALLOON ANGIOPLASTY Left 11/02/2020 AV FISTULOGRAM & PERIPHERAL ANGIOPLASTY performed by Carmelo Ramos MD at OR [facility] INTRO CATH DIALYSIS CIRCUIT W/TRANSLUM BALLOON ANGIOPLASTY Right 06/15/2021 AV FISTULOGRAM & PERIPHERAL ANGIOPLASTY performed by Balbir Santiago MD at OR [facility] INTRO CATH DIALYSIS CIRCUIT W/TRANSLUM BALLOON ANGIOPLASTY Right 04/16/2023 AV FISTULOGRAM & PERIPHERAL ANGIOPLASTY performed by Carmelo Ramos MD at OR [facility] IOF CT GUIDED NEEDLE BIOPSY 05/18/2013 CT GUIDED NEEDLE ASPIRATION BIOPSY performed by Tremaine Rodríguez PA-C at RADIOLOGY [facility] KNEE ARTHROSCOPY, DIAGNOSTIC 10/27/2008 Knee Scope,Diagnostic LAPAROSCOPY; CHOLECYSTECTOMY N/A 12/18/2016 LAPAROSCOPIC CHOLECYSTECTOMY [facility] DR. DIAZ 12/18/16 LASIK SURGERY 1987 LIGATE/CUT OVIDUCT(S) 10/10/2011 REMOV MARI BENJI CATH W/O PORT 11/24/2014 REMOVAL OF TUNNELED CENTRAL VENOUS CATHETER performed by Danny Godinez MD at RADIOLOGY [facility] REMOV MARI BENJI CATH W/O PORT Left 09/29/2020 REMOVAL OF TUNNELED CENTRAL VENOUS CATHETER performed by Carmelo Ramos MD at OR [facility] RENAL BIOPSY, PERCUTANEOUS (TROCAR/NEEDLE) N/A 11/16/2014 RENAL BIOPSY PERCUTANEOUS performed by Fer Sharp MD at OR [facility] RENAL BIOPSY, PERCUTANEOUS (TROCAR/NEEDLE) N/A 11/23/2014 RENAL BIOPSY PERCUTANEOUS performed by Fer Sharp MD at [facility] THROMBECTOMY, PERCUT, THROMBOLYTIC INJECT Left 09/29/2020 PERCUTANEOUS MECHANICAL VENOUS THROMBECTOMY performed by Carmelo Ramos MD at OR [facility] TRANSCATH PLACMENT IV STENT CENTRAL DIALYSIS SEGMENT W/IMAGING Left 09/29/2020 INTRAVASCULAR STENT CENTRAL DIALYSIS SEGMENT performed by Carmelo Rmaos MD at OR [facility] TRANSPLANTATION OF KIDNEY 02/18/2014 RENAL TRANSPLANT performed by Faiza Salinas MD at OR [facility] Social History Socioeconomic History Marital status: Spouse name: Diego Number of children: 1 Years of education: 14 Highest education level: Not on file Occupational History Occupation: unemployed Tobacco Use Smoking status: Every Day Packs/day: 0.50 Years: 11.00 Additional pack years: 0.00 Total pack years: 5.50 Types: Cigarettes Last attempt to quit: 12/2021 Years since quittin.6 Smokeless tobacco: Never Tobacco comments: 09-21-2021 7 cigs day Vaping Use Vaping Use: Never used Substance and Sexual Activity Alcohol use: No Drug use: No Sexual activity: Yes Partners: Male control/protection: Surgical Comment: tubal Other Topics Concern Not on file Social History Narrative No mold No pets Social Determinants of Health Financial Resource Strain: Not on file Food Insecurity: No Food Insecurity (07/25/2023) Hunger Vital Sign Worried About Running Out of Food in the Last Year: Never true Ran Out of Food in the Last Year: Never true Transportation Needs: Not on file Physical Activity: Not on file Stress: Not on file Social Connections: Not on file Intimate Partner Violence: Not on file Housing Stability: Not on file Physical exam: BP 185/71 | Pulse 67 | Temp 37.5 C (99.5 F) (Tympanic) | Resp 18 | Ht 1.676 m (5' 6") | Wt 82.9kg (182 lb 11.2 oz) | SpO2 96% | No | BMI 29.49 kg/m | BSA 1.96 m General: patient appearing staged age No acute distress, Well-appearing, non-toxic C/T/L-spine: Cervical collar in place Heart: regular rate measured via periphery Lungs: no increased work of breathing RUE: No gross deformity. No swelling/erythema/ecchymosis. Excoriations dorsal forearm. Non tender to palpation of clavicle/shoulder/upper arm/elbow/forearm/wrist/hand/fingers Full active and passive ROM of shoulder/elbow/wrist/fingers. Motor: grossly intact AIN/PIN/M/U/R SILT M/U/R 2+ radial pulse.? BCR<2 sec, WWP LUE: Scattered excoriations over the dorsal forearm. No gross deformity. No swelling/erythema/ecchymosis. Non tender to palpation of upper arm/elbow/forearm/wrist/hand/fingers, tender to palpation at the AC joint Full active and passive ROM of shoulder/elbow/wrist/fingers. Motor: grossly intact AIN/PIN/M/U/R SILT M/U/R 2+ radial pulse.? BCR<2 sec, WWP Pelvis: pain with compression, no instability on compression, no ecchymosis, tender to palpation over right superior pubic ramus Was walking back to bed with crutch assistance when I entered the room. RLE: Skin intact. No gross deformity. No swelling/erythema/ecchymosis. Non tender to palpation of thigh/knee/lower leg/ankle/foot Full active and passive ROM of hip/knee/ankle/toes. Non tender to log roll. Motor: grossly intact EHL/FHL/TA/GS. Grossly intact hip flexion and knee extension SILT DP/SP/Saph/Evelyn/T Positive Stinchfield test 2+ DP pulse.? BCR<2 sec, WWP distally LLE: Skin intact. No gross deformity. No swelling/erythema/ecchymosis. Tender to palpation of the left greater trochanter and anterior hip Decreased active ROM of hip secondary to pain, full passive ROM at the hip/knee/ankle/toes. Non tender to log roll. Motor: grossly intact EHL/FHL/TA/GS. Grossly intact hip flexion and knee extension SILT DP/SP/Saph/Evelyn/T 2+ DP pulse.? BCR<2 sec, WWP distally LABS: CARDIAC: Troponin T (see below for last three most recent values): Lab Results Component Value Date/Time TROPT 23 (H) 11/01/2020 11:00 AM TROPT 30 (H) 09/30/2020 05:26 AM TROPT 30 (H) 09/30/2020 12:48 AM TROPT 54 (H) 08/01/2019 06:20 PM TROPT 0.014 01/25/2017 09:36 PM TROPT 0.011 01/25/2017 04:47 PM TROPT <0.010 05/22/2011 04:27 PM CARDIAC: Troponin I / Troponin T (see below for last three most recent values): No results found for: "TNISACH" CARDIAC: Troponin I (see below for last three most recent values): No results found for: "TNISACH" CHEMISTRY: BUN, Creatinine, GFR Estimated, Sodium, Potassium, Chloride, Carbon Dioxide, Glucose, Calcium (see below for most recent value): Lab Results Component Value Date/Time BUN 51 (H) 08/31/2023 07:03 AM BUN 71 (H) 08/02/2019 04:41 AM CREAT 9.3 (H) 08/31/2023 07:03 AM CREAT 7.52 (H) 01/27/2021 12:00 AM CREAT 15.0 (H) 08/02/2019 04:41 AM GFRESTIMATED 2.8 (L) 08/02/2019 04:41 AM NA 136 08/31/2023 07:03 AM NA 135 08/02/2019 04:41 AM POTASSIUM 5.7 (H) 08/31/2023 07:03 AM POTASSIUM 3.6 01/27/2021 12:00 AM POTASSIUM 4.5 08/02/2019 04:41 AM CL 95 (L) 08/31/2023 07:03 AM CL 97 (L) 08/02/2019 04:41 AM CO2 22 08/31/2023 07:03 AM CO2 18 (L) 08/02/2019 04:41 AM CA 10.1 08/31/2023 07:03 AM CA 7.7 (L) 08/02/2019 04:41 AM BLOOD COUNT: WBC, Hgb, Platelets (see below for most recent value): Lab Results Component Value Date/Time WBC 6.31 08/30/2023 03:26 AM WBC 4.56 08/02/2019 05:36 AM HGB 11.9 (L) 08/30/2023 03:26 AM HGB 11.7 (L) 01/27/2021 12:00 AM HGB 7.8 (L) 08/02/2019 05:36 AM PLT 107 (L) 08/30/2023 03:26 AM PLT 88 (L) 08/02/2019 05:36 AM HEMOGLOBIN A1C: (see below for most recent value): Lab Results Component Value Date/Time HGBA1C 5.9 (H) 08/30/2023 04:12 AM HGBA1C 4.0 2016 02:37 PM LIVER FUNCTION TEST: Albumin, AST, ASTCMC (resulted at [facility] lab), Alkaline Phosphatase, ALT, ALTCMC (resulted at [facility] lab), Bilirubin Total, TBilCMC (resulted at [facility] lab), Protein - (see below for most recent value of each component): Lab Results Component Value Date/Time AST 38 (H) 08/30/2023 03:26 AM AST 16 08/01/2019 02:08 AM ALKP 108 08/30/2023 03:26 AM ALKP 117 08/01/2019 02:08 AM ALT 29 08/30/2023 03:26 AM ALT 14 08/01/2019 02:08 AM TBIL 0.3 08/30/2023 03:26 AM TBIL 0.3 08/01/2019 02:08 AM PROT 6.8 08/30/2023 03:26 AM PROT 6.6 08/01/2019 02:08 AM No results found for: "BASIC CHEMISTRY", "TOTAL COUNTED - [facility]" Hemoglobin A1C last 3 results: Lab Results Component Value Date/Time HEMATOCRIT, WHOLE BLOOD - [facility] 28.4 (L) 02/18/2014 02:37 PM HEMATOCRIT, WHOLE BLOOD - [facility] 29.1 (L) 02/18/2014 02:02 PM HEMATOCRIT, WHOLE BLOOD - [facility] 29.5 (L) 02/18/2014 01:45 PM HEMOGLOBIN A1C - [facility] 5.9 (H) 08/30/2023 04:12 AM HEMOGLOBIN A1C - [facility] 5.4 05/28/2023 01:46 PM HEMOGLOBIN A1C - [facility] 5.9 (H) 07/26/2022 12:01 PM HEMOGLOBIN A1C - [facility] 4.0 2016 02:37 PM HEMOGLOBIN A1C - [facility] 5.1 11/09/2015 10:16 AM HEMOGLOBIN A1C - [facility] 6.8 (H) 02/08/2015 09:02 AM HEMOGLOBIN, WHOLE BLOOD - [facility] 10.7 (L) 08/30/2023 03:26 AM HEMOGLOBIN, WHOLE BLOOD - [facility] 8.4 (L) 11/05/2014 11:00 AM HEMOGLOBIN, WHOLE BLOOD - [facility] 9.2 (L) 02/18/2014 02:37 PM HEMOGLOBIN, WHOLE BLOOD - [facility] 9.4 (L) 02/18/2014 02:02 PM HEMOGLOBIN-OUTSIDE LAB 11.7 (L) 01/27/2021 12:00 AM HEMOGLOBIN-OUTSIDE LAB 8.6 (A) 10/14/2020 12:00 AM HEMOGLOBIN-OUTSIDE LAB 9.3 (A) 08/01/2020 12:00 AM Hemoglobin Lab Results Component Value Date/Time HGB - [facility] 11.9 (L) 08/30/2023 03:26 AM HGB - [facility] 9.3 (L) 05/28/2023 01:46 PM HGB - [facility] 13.3 07/26/2022 12:01 PM HGB - [facility] 7.8 (L) 08/02/2019 05:36 AM HGB - [facility] 8.1 (L) 08/01/2019 05:16 AM HGB - [facility] 7.8 (L) 08/01/2019 02:08 AM PT INR Results: Lab Results Component Value Date/Time PTH - [facility] 332 (H) 11/22/2014 09:28 AM PTH - [facility] 132 (H) 08/17/2014 09:08 AM PTH - [facility] 179 (H) 04/21/2014 09:26 AM Lab Results Component Value Date/Time INR - [facility] 1.2 08/30/2023 08:10 AM INR - [facility] 1.16 (H) 08/01/2019 02:08 AM INR-OUTSIDE LAB 1.0 05/06/2017 02:42 PM BUN Results: Lab Results Component Value Date/Time BUN - [facility] 51 (H) 08/31/2023 07:03 AM BUN - [facility] 43 (H) 08/30/2023 08:12 PM BUN - [facility] 102 (H) 08/30/2023 03:26 AM BUN - [facility] 104 (H) 08/30/2023 03:26 AM BUN - [facility] 71 (H) 08/02/2019 04:41 AM BUN - [facility] 71 (H) 08/01/2019 06:20 PM BUN - [facility] 108 (H) 08/01/2019 05:16 AM Creatinine Results: Lab Results Component Value Date/Time CREATININE - [facility] 9.3 (H) 08/31/2023 07:03 AM CREATININE - [facility] 8.2 (H) 08/30/2023 08:12 PM CREATININE - [facility] 15.0 (H) 08/30/2023 03:26 AM CREATININE - [facility] 15.1 (H) 08/30/2023 03:26 AM CREATININE - [facility] 15.0 (H) 08/02/2019 04:41 AM CREATININE - [facility] 14.4 (H) 08/01/2019 06:20 PM CREATININE - [facility] 21.6 (H) 08/01/2019 05:16 AM CREATININE CLEARANCE - [facility] 49 (L) 04/18/2011 09:44 AM CREATININE, 24 HOUR URINE - [facility] 1.296 04/18/2011 09:44 AM CREATININE, RANDOM URINE - [facility] 47 11/09/2015 10:17 AM CREATININE, RANDOM URINE - [facility] 100 01/24/2015 08:13 AM CREATININE, RANDOM URINE - [facility] 64 12/06/2014 09:12 AM CREATININE-[facility] 7.52 (H) 01/27/2021 12:00 AM CREATININE-[facility]IDE LAB 5.68 (A) 10/14/2020 12:00 AM CREATININE-OUTSIDE LAB 10.40 (A) 08/01/2020 12:00 AM Lactate: Lab Results Component Value Date/Time LACTATE - [facility] 0.5 08/01/2019 02:08 AM LACTATE - [facility] 0.7 11/05/2014 10:09 AM LACTATE - [facility] 0.5 11/03/2014 03:41 AM Toxicology screen: No results found for: "AMPHETAMINE", "BENZODIAZEPINES", "CANNABINOIDS", "COCAINE", "FENTANYL", "HYDROCODONE", "METHADONE", "MORPHINE", "OXYCODONE" Imaging Review of all relevant imaging per my interpretation demonstrates a nondisplaced right superior pubic ramus fracture. No other fractures or dislocation noted on the AP pelvis x-ray. Assessment: Alexandra Arguello is a 37 year old female with a relevant PMH of end-stage renal disease, type 2 diabetes, hypertension, depression, bipolar disorder that presents with nondisplaced right superior pubic ramus fracture , closed NVI. Plan: - No urgent orthopaedic surgical intervention indicated at this time - [place] weightbearing in the RLE with crutches - pain control per primary team - Will arrange orthopaedic follow up Provisional fracture care provided, definitive care to follow General supervision provided by Dr. Gutierrez Associated attestation - Sherrill Gutierrez MD - 09/01/2023 7:53 AM EST I did not see the patient, but I have reviewed the trainee documentation and was readily available on date of service. Name : Alexandra Arguello Date : 09/01/2023 Alexandra Arguello is a 37 year old female with a relevant PMH of end-stage renal disease, type 2 diabetes, hypertension, depression, bipolar disorder that presents with nondisplaced right superior pubic ramus fracture. Provisional care provided. No plan for urgent or emergent operative treatment at this time. Patient to be reviewed with Orthopaedic Trauma Service for further definitive treatment planning. I have discussed the patient's management with Dr. Justin Alfonso and Sasha Guerra and agree with the note. Please refer to the documented findings and plan of care. The patient's service consisted of a service. I was readily available for immediate [id number] consultation and assistance. I have reviewed the medical history, physical examination, diagnosis, and plan. Sherrill Gutierrez MD [facility] * Kenneth Benjamin MD - 08/30/2023 3:49 AM EST CONSULT - Nephrology [facility]-[address] [id number] Name: Alexandra Arguello Location: [facility] G219/A Date: 08/30/2023 Time: 3:49 AM Hospital Day: 0 Reason for Consult: ESRD on HD HPI: Alexandra Arguello is a 37 year old female with past history notable for ESRD on MWF schedule ofIHD at [place] via LUE AVF , T2DM, Anxiety and depression and HTN, was admitted to the hospital on 08/30/2023 after being referred from [facility] where she presented with missing last two dialysis sessions and severe Hyperkalemia. Received medical management of hyperkalemia before shifting here. Seen and examined at bedside. Appears to be tired and sleepy. Says she was last dialyzed on Saturday08/23/23. Currently denies SOB, Chest pain, cough, fever. Chills, nausea, vomiting or diarrhea. Continues to feel tired and sleepy. Pertinent positives and negatives as documented in the HPI. All other systems are negative. 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 Metabolic acidosis 11/05/2014 Migraine without aura, intractable Ovarian cyst Pre-transplant evaluation for kidney transplant 02/04/2014 Tobacco abuse Past Surgical History: Procedure Laterality Date AV ACCESS, DIRECT ANASTOMOSIS Right 04/28/2015 ARTERIOVENOUS ANASTOMOSIS OPEN DIRECT ANY SITE performed by Carmelo Ramos MD at [facility] AV ACCESS, DIRECT ANASTOMOSIS Right 01/03/2021 ARTERIOVENOUS ANASTOMOSIS OPEN DIRECT ANY SITE performed by Carmelo Ramos MD at [facility] DELIVERY DELIVERY ONLY W/ 10/08/2011 DELIVERY AND CARE performed by ANDRA SMITH at OB [facility] COLONOSCOPY, DIAGNOSTIC (RECTUM) 10/01/2017 adenomatous polyp, diverticulosis, repeat 5 yrs/[facility] CORONARY ANGIOGRAPHY W/LEFT HEART CATH 01/26/2017 CORONARY ANGIOGRAPHY W/LEFT HEART CATH performed by Andra Velasquez MD at CARDIAC LABS [facility] CYSTOSCOPY 03/17/2014 With stent removal EGD, FLEXIBLE, DIAGNOSTIC 09/11/2022 mild gastric irriation on bx / [facility] EGD, FLEXIBLE,W/ENDOSCOPIC US 06/14/2017 mild-mod gastric inflammation/[facility] INSER MARI CAT,W/O PUMP;5YR/OLD 11/05/2014 INSERT TUNNELED CENTRAL VENOUS CATHETER AGE 5 OR OLDER performed by Danny Godinez MD at RADIOLOGY [facility] INTRO CATH DIALYSIS CIRCUIT DX ANGIOGRAPHY FLUORO S&I Left 02/25/2020 AV FISTULOGRAM DIAGNOSTIC performed by Theo Huang MD at OR [facility] INTRO CATH DIALYSIS CIRCUIT W/TRANSCATH PLACEMENT IV STENT Right 05/22/2022 AV FISTULOGRAM STENT & PERIPHERAL ANGIOPLASTY performed by Carmelo Ramos MD at OR [facility] INTRO CATH DIALYSIS CIRCUIT W/TRANSLUM BALLOON ANGIOPLASTY Left 02/25/2020 AV FISTULOGRAM & PERIPHERAL ANGIOPLASTY performed by Theo Huang MD at OR [facility] INTRO CATH DIALYSIS CIRCUIT W/TRANSLUM BALLOON ANGIOPLASTY Left 09/29/2020 AV FISTULOGRAM & PERIPHERAL ANGIOPLASTY performed by Carmelo Ramos MD at OR [facility] INTRO CATH DIALYSIS CIRCUIT W/TRANSLUM BALLOON ANGIOPLASTY Left 11/02/2020 AV FISTULOGRAM & PERIPHERAL ANGIOPLASTY performed by Carmelo Ramos MD at OR [facility] INTRO CATH DIALYSIS CIRCUIT W/TRANSLUM BALLOON ANGIOPLASTY Right 06/15/2021 AV FISTULOGRAM & PERIPHERAL ANGIOPLASTY performed by Balbir Santiago MD at OR [facility] INTRO CATH DIALYSIS CIRCUIT W/TRANSLUM BALLOON ANGIOPLASTY Right 04/16/2023 AV FISTULOGRAM & PERIPHERAL ANGIOPLASTY performed by Carmelo Ramos MD at OR [facility] IOF CT GUIDED NEEDLE BIOPSY 05/18/2013 CT GUIDED NEEDLE ASPIRATION BIOPSY performed by Tremaine Rodríguez PA-C at RADIOLOGY [facility] KNEE ARTHROSCOPY, DIAGNOSTIC 10/27/2008 Knee Scope,Diagnostic LAPAROSCOPY; CHOLECYSTECTOMY N/A 12/18/2016 LAPAROSCOPIC CHOLECYSTECTOMY [facility] DR. DIAZ 12/18/16 MEGAN SURGERY 1987 LIGATE/CUT OVIDUCT(S) 10/10/2011 REMOV MARI BENJI CATH W/O PORT 11/24/2014 REMOVAL OF TUNNELED CENTRAL VENOUS CATHETER performed by Danny Godinez MD at RADIOLOGY [facility] REMOV MARI BENJI CATH W/O PORT Left 09/29/2020 REMOVAL OF TUNNELED CENTRAL VENOUS CATHETER performed by Carmelo Ramos MD at OR [facility] RENAL BIOPSY, PERCUTANEOUS (TROCAR/NEEDLE) N/A 11/16/2014 RENAL BIOPSY PERCUTANEOUS performed by Fer Sharp MD at OR [facility] RENAL BIOPSY, PERCUTANEOUS (TROCAR/NEEDLE) N/A 11/23/2014 RENAL BIOPSY PERCUTANEOUS performed by Fer Sharp MD at OR [facility] THROMBECTOMY, PERCUT, THROMBOLYTIC INJECT Left 09/29/2020 PERCUTANEOUS MECHANICAL VENOUS THROMBECTOMY performed by Carmelo Ramos MD at OR [facility] TRANSCATH PLACMENT IV STENT CENTRAL DIALYSIS SEGMENT W/IMAGING Left 09/29/2020 INTRAVASCULAR STENT CENTRAL DIALYSIS SEGMENT performed by Carmelo Ramos MD at OR [facility] TRANSPLANTATION OF KIDNEY 02/18/2014 RENAL TRANSPLANT performed by Faiza Salinas MD at OR [facility] Allergies: reviewed Current medication list reviewed. Current Facility-Administered Medications Medication Dose Route Frequency Provider Acetaminophen (Tylenol) tab 650 mg 650 mg Oral Q6H PRN Zechariah Abraham CRNP calcium acetate (Phos Binder) (Phoslo) cap/tab 2,001 mg 2,001 mg Oral With meals Zechariah Abraham CRNP carBAMazepine ER (Carbatrol) cap 200 mg 200 mg Oral Q12H Zechariah Abraham CRNP Carvedilol (Coreg) tab 6.25 mg 6.25 mg Oral BID(AM/PM) Zechariah Abraham CRNP dextrose 50 % inj 25 mL 25 mL IV Push PRN Zechariah Abraham CRNP dextrose 50 % inj 50 mL 50 mL IV Push PRN Zechariah Abraham CRNP fluticasone furoate-vilanterol (BREO ellipta) 200-25 MCG/ACT inhaler 1 Puff 1 Puff Inhalation [id number] Zechariah Abraham CRNP glucagon (Glucagen) inj 1 mg 1 mg Intramuscular PRN Zechariah Abraham CRNP Glucose (Glutose 15) 40 % gel 15 g of glucose 15 g of glucose Oral PRN Zechariah Abraham CRNP Glucose (Glutose 15) 40 % gel 30 g of glucose 30 g of glucose Oral PRN Zechariah Abraham CRNP glucose chew tab 16 g 16 g Oral PRN Zechariah Abraham CRNP guaiFENesin-dm (Robitussin DM) oral syrup 10 mL 10 mL Oral Q4H PRN Zechariah Abraham CRNP [START ON 08/31/2023] hEParin inj 5,000 Units 5,000 Units Subcutaneous Q8H Zechariah Abraham CRNP hydrOXYzine HCl tab 25 mg 25 mg Oral Q6H PRN Zechariah Abraham CRNP insulin aspart (NovoLOG) inj Subcutaneous With Meals and HS Zechariah Abraham CRNP melatonin tab 3 mg 3 mg Oral HS PRN Zechariah Abraham CRNP omeprazole (PriLOSEC) cap 20 mg 20 mg Oral Daily(AM) Zechariah Abraham CRNP ondansetron (Zofran) inj 4 mg 4 mg IV Push Q6H PRN Zechariah Abraham CRNP sertraline (Zoloft) tab 100 mg 100 mg Oral Daily(AM) Zechariah Abraham CRNP sodium chloride 0.9 % flush/inj 3 mL 3 mL IV Push PRN Zechariah Abraham CRNP traZODone (Desyrel) tab 200 mg 200 mg Oral HS Zechariah Abraham CRNP Physical Examination Most Recent Vital Signs: BP: 196 mmHg/92 mmHg (08/30/23306) Pulse: 81 (08/30/23306) Temp: 36.39 C (08/30/23306) Resp: 22 (08/30/23306) SpO2: 95 % (08/30/23306) Vital Signs last 24 Hours: Systolic BP: Most Recent Systolic BP Av mmHg Min: 196 mmHg Max: 200 mmHg Temperature: Most Recent Temperature Av.4 C Min: 36.39 C Max: 36.5 C Pulse: Pulse Av.5 Min: 81 Max: 86 Respirations: Resp Av.5 Min: 21 Max: 22 SpO2: SpO2 Av.7 % Min: 95 % Max: 97 % Body mass index is 32.06 kg/m. No intake or output data in the 24 hours ending 08/30/23348 General: No acute distress. HEENT: Normocephalic, atraumatic. EOM intact. Moist mucosa. Neck: Trachea is midline. No JVD appreciable. Cardiovascular: RRR. No murmurs. No palpable thrill. Pulmonary: Normal respiratory pattern. Clear to auscultation bilaterally. Abdomen: Soft, non-tender, non-distended. No masses. Bowel sounds present. Extremities: Mild pedal edema noted. Skin: Warm, with normal turgor. No rashes. Neuro: Sleepy, oriented x 3. No focal deficits. Dialysis access: LUE AVF with good thrill. Labs reviewed as indicated below: No results in the last 7 days - inpatent use only No results in the last 7 days - inpatent use only No results in the last 7 days - inpatent use only Recent Cultures (2 Weeks) 10/02/2018 05/17/2015 05/16/2015 04/19/2015 04/19/2015 11/23/2014 11/03/2014 11/03/2014 9:45 AM 11:56 AM 1:56 PM 10:58 AM 10:56 AM 2:15 PM 3:48 AM 3:41 AM SPECIMEN DESCRIPTION PERITONEAL DIALYSATE BLOOD CLEAN CATCH URINE CLEAN CATCH URINE BLOOD CATHETERIZED URINE BLOOD BLOOD PERITONEAL DIALYSATE CULTURE NO GROWTH 5 DAYS NO GROWTH MULTIPLE IRAIS SUGGESTS CONTAMINATION OR COLONIZATION MULTIPLE IRAIS SUGGESTS CONTAMINATION OR COLONIZATION NO GROWTH LESS THAN 100 COLONIES/ML (NO GROWTH) NO GROWTH NO GROWTH Pertinent Imaging :personally reviewed images No imaging results in the last 24 hours Impression: # ESRD on MWF schedule at [place] via LUE AVF # Missed last 2 dialysis sessions # Hyperkalemia- fresh lab pending. # HTN # Volume status: Mild hypervolemic # acid base status: Bicarbonate 24.6 # MBD- Labs pending. # Anemia: HGB 10.7 g/dl. Recommendations # Repeat EKG to look for sings of Hyperkalemia # Repeat BMP, Blood gas, Calcium, Phosphorus stat. # Continue to monitor BP closely. # Will arrange the dialysis sessions as soon as fresh labs are available. # Continue SENIOR INFORMATION SECURITY ANALYST Cinacalcet, Renal vitamin and Calcium acetate. # Continue SENIOR INFORMATION SECURITY ANALYST Amlodipine 10 mg daily for BP control. Will likely need up titration of anti-HTN meds. # Rest of the management as per primary team. I appreciate the opportunity of participating in Ms. Arguello's care. I have discussed the assessment and management plan with Dr. Pendleton, the attending physician and communicated to Leigh Apple NP hospitalist via tiger text. Kenneth Benjamin MD Fellow Nephrology [facility] Associated attestation - Zonia Pendleton MD - 08/30/2023 4:40 PM EST I saw and evaluated the patient today. I have reviewed the trainee note and agree. documented in this encounter Nursing Notes * Marlen Giles RN - 09/01/2023 10:35 AM EST POST ASSESSMENT COMMUNICATION NOTE - HEMODIALYSIS Attention to: ROSEY parra Patient arriving via: Bed Time of Call: 10:36 AM Phone Ext.: [phone] Reason for SBAR handoff: Postdialysis treatment. Treatment: Prescribed treatment time: 3.5 hours Duration of Treatment (minutes): 206 minutes (09/01/23 1020) Dialysis Treatment Less than Prescribed: NO Prescribed UF: 2-2.5L as tolerated Dialysis: 3000 ml (09/01/23 1034) Reason prescribed UF was not achieved: increased goal d/t HTN Blood Returned: Yes Potassium Bath: As ordered for entire treatment, 3K+ 2.5 Ca Post Dialysis Vitals: Temp: 37 C (98.6 F) (09/01/23 1020) Pulse: 74 (09/01/23 1020) Resp: 18 (09/01/23 1020) SpO2: 97 % (09/01/23 0308) O2 flow rate: 0 L/MIN (08/31/23 0300) Supplemental O2 Delivery: Room Air, None (09/01/23 102) Pain Assessment Flowsheet Row Most Recent Value Pain Assessment Scale [facility] Adult Scale 0-10 Pain Score 9 (severe pain) Pre BP Sittin/86 (09/01/23 0650) Post BP Sitting: (!) 207/100 (09/01/23 1020) Pre-Treatment Weight: 88.1 kg (194 lb 3.6 oz) (09/01/23 0650) Post-Treatment Weight: 85.1 kg (187 lb 9.8 oz) (09/01/23 1020) Treatment Weight Change (kg): -3 kg (09/01/231019) Medications administered, see MAR/flowsheets for further information: None Access: Arteriovenous fistula, Right armneedle size 15G Function: No problems Date/time to remove pressure dressin/7@1999 Dialysis Tx Tolerance: Tolerated well;Other (Comment) (pt c/o frequent pelvic pain) (09/01/231019) Intervention : Medication (09/01/231019) Patient educated on: N/A- chronic patient, education not required Additional patient needs/interventions during treatment: N/A No bleeding from dialysis access. Report called to Juan via TT . Patient transported to floor in stable condition. * Marlen Giles RN - 08/30/2023 10:27 AM EST POST ASSESSMENT COMMUNICATION NOTE - HEMODIALYSIS Attention to: Gale Patient arriving via: Bed Time of Call: 10:27 AM Phone Ext.: [phone] Reason for SBAR handoff: Postdialysis treatment. Treatment: Prescribed treatment time: 3.5 hours Duration of Treatment (minutes): 210 minutes (08/30/231005) Dialysis Treatment Less than Prescribed: NO Prescribed UF: 2-2.5L as tolerated Dialysis: 3000 ml (08/30/231026) Reason prescribed UF was not achieved: na Blood Returned: Yes Potassium Bath: As ordered for entire treatment, 2K+ 2.5 Ca Post Dialysis Vitals: Temp: 36.5 C (97.7 F) (08/30/23 100) Pulse: 69 (08/30/231005) Resp: 18 (08/30/231005) SpO2: 100 % (08/30/231005) O2 flow rate: 0 L/MIN (08/30/23611) Supplemental O2 Delivery: Room Air, None (08/30/231005) Pain Assessment Flowsheet Row Most Recent Value Pain Assessment Scale [facility] Adult Scale 0-10 Pain Score 0 (no pain) Pre BP Sitting: (!) 190/100 (08/30/23627) Post BP Sitting: (!) 140/114 (08/30/231005) Pre-Treatment Weight: 90.4 kg (199 lb 4.7 oz) (08/30/23627) Post-Treatment Weight: 86.9 kg (191 lb 9.3 oz) (08/30/231005) Treatment Weight Change (kg): -3.5 kg (08/30/231005) Medications administered, see MAR/flowsheets for further information: Other: hydroxyzine 25 mg Access: Arteriovenous fistula, Right armneedle size 15G Function: No problems Date/time to remove pressure dressin/5@1999 Dialysis Tx Tolerance: Tolerated well (08/30/231005) Patient educated on: N/A- chronic patient, education not required Additional patient needs/interventions during treatment: N/A No bleeding from dialysis access. Report called to ROSEY Beasley. Patient transported to floor in stable condition. * Jailene Perkins RN - 08/30/2023 6:27 AM EST IP TO DIALYSIS HANDOFF COMMUNICATION NOTE Attention to: emc storage architect Patient arriving via: Bed Time of Call: 0610 Phone Ext.: [phone] Reason for SBAR handoff: Predialysis treatment. Neuro Assessment: Neurological: Neurological WNL Neuro WNL: X - Exceptions to WNL as documented below (08/30/23245) Level of Consciousness: Alert;Responds to voice (08/30/23245) Orientation Level: Oriented x4 (08/30/23245) Cognition: Appropriate for age (08/30/23245) Speech: Clear (08/30/23245) Facial Drooping: Face symmetrical (08/30/23245) Extinction/Inattention: None (08/30/23245) Pupil Assessment: Yes (08/30/23245) Right Pupil Size (mm): 3 (08/30/23245) Right Pupil Shape/Description: PERRLA (08/30/23245) Right Pupil Reaction: Reactive (08/30/23245) Left Pupil Size (mm): 3 (08/30/23245) Left Pupil Shape/Description: PERRLA (08/30/23245) Left Pupil Reaction: Reactive (08/30/23245) Behaviors/Mood/Neuro Symptoms: Calm;Cooperative;Tired / Drowsy (08/30/23245) Hand Grasp/Motor Function/Sensation Assessment: Grasp;Motor response;Motor strength;Sensation (08/30/23245) Right Hand Grasp: Strong (08/30/23245) Left Hand Grasp: Strong (08/30/23245) Motor Response: RUE motor response;LUE motor response;RLE motor response;LLE motor response (08/30/23245) RUE Motor Response: Movement to painful stimuli (08/30/23245) LUE Motor Response: Movement to painful stimuli (08/30/23245) RLE Motor Response: Movement to painful stimuli (08/30/23245) LLE Motor Response: Movement to painful stimuli (08/30/23245) Sensation: RUE sensation;LUE sensation;RLE sensation;LLE sensation (08/30/23245) RUE Sensation: Full sensation (08/30/23245) LUE Sensation: Full sensation (08/30/23245) RLE Sensation: Full sensation (08/30/23245) LLE Sensation: Full sensation (08/30/23245) Motor Strength: RUE motor strength;LUE motor strength;RLE motor strength;LLE motor strength (08/30/23245) RUE Motor Strength: 5-Active movement with full resistance (08/30/23245) LUE Motor Strength: 5-Active movement with full resistance (08/30/23245) RLE Motor Strength: 4-Active movement with some resistance (08/30/23245) LLE Motor Strength: 4-Active movement with some resistance (08/30/23245) [place] Coma Scale Eyes Open: Spontaneous (08/30/23245) Best Verbal Response: Verbally appropriate for age (08/30/23245) Best Motor Response: Obeys commands appropriate for age (08/30/23245) Coma Score: 15 (08/30/23245) Additional Neurological Information: N/A Assessment: BP: 127/76 (08/30/23611) Temp: 36.3 C (97.3 F) (08/30/23611) Pulse: 80 (08/30/23611) Resp: 21 (08/30/23611) SpO2: 96 % (08/30/23611) O2 flow rate: 0 L/MIN (08/30/23611) Supplemental O2 Delivery: Room Air, None (08/30/23611) Pain Assessment Flowsheet Row Most Recent Value Pain Assessment Scale [facility] Scale 0-10 Pain Score 0 (no pain) Last dose of pain medication administered N/A time N/A Michael Score: Michael Score (auto-calculation): 19 (08/30/23 0246) Diabetic: Yes Last Blood Sugar: Glucose (Bedside): 102 (08/30/23 0321) Dialysis Access: B/L UE fistulas. The right arm fistula is used primarily. The left arm fistula is temperamental and used as back up. Continuous medications: N/A Labs needing collected: PT/INR @ 0635 How does the patient take their medications: Whole Emotional/Personal Events and Special Needs: N/A * Jailene Perkins RN - 08/30/2023 3:40 AM EST Dual Licensed Skin Assessment completed by Oanh Perkins RN and Gilberto Morales LPN. The patient is/has a N/A Skin Breakdown (includes non blanchable erythema): No scattered scabs across entire body from scratching documented in this encounter Miscellaneous Notes * Care Plan - Juan Torres RN - 09/01/2023 1:52 PM EST Problem: Pain & Impaired Comfort Goal: Patient's pain & discomfort is manageable. Outcome: Progressing Problem: Safety & Risk for Injury Goal: Patient will remain free from injury. Outcome: Progressing Problem: Daily Care & Potential Self-Care Deficit Goal: Patient's daily care needs are met. Outcome: Progressing Problem: Risk for Impaired Physical Mobility Goal: Patient will maintain optimal mobility level. Outcome: Progressing Clinical Goal(s): Pt will have adequate pain control (09/01/23 1100) Possible barriers to meeting goal(s)/advancing plan of care: None Stability of the patient: Moderately stable - low risk of patient condition declining or worsening Summary regarding today's goal(s): Met: Recommendations: Follow * Care Plan - María Rodriguez RN - 09/01/2023 1:34 AM EST Clinical Goal(s): Pt's pain will be controlled this shift. (08/31/231999) Possible barriers to meeting goal(s)/advancing plan of care: pelvic fracture Stability of the patient: Moderately stable - low risk of patient condition declining or worsening Summary regarding today's goal(s): Met: Pt reported pain was controlled with percocet one time dose. Recommendations: Continue to monitor for pain. * Care Plan - Juan Torres RN - 08/31/2023 2:06 PM EST Problem: Pain & Impaired Comfort Goal: Patient's pain & discomfort is manageable. Outcome: Progressing Problem: Safety & Risk for Injury Goal: Patient will remain free from injury. Outcome: Progressing Problem: Daily Care & Potential Self-Care Deficit Goal: Patient's daily care needs are met. Outcome: Progressing Problem: Risk for Impaired Physical Mobility Goal: Patient will maintain optimal mobility level. Outcome: Progressing Clinical Goal(s): Safety (08/31/23 0731) Possible barriers to meeting goal(s)/advancing plan of care: Acute process Stability of the patient: Moderately stable - low risk of patient condition declining or worsening Summary regarding today's goal(s): Met: Recommendations: Follow * Respiratory Progress Note - Natalie Paniagua RRT - 08/31/2023 5:16 AM EST PATIENT DRIVEN PROTOCOL - Respiratory Care Services [facility] [address] Name: Alexandra Arguello Location: [facility] G219/A Date: 08/31/2023 Time: 5:16 AM Patient Driven Protocol Summary: Initial evaluation performed. This Treatment Plan and medications will be reviewed by the Primary Care Team for any contraindications. Respiratory Care Treatment Plan Aerosol Therapy Treatment:: Inhaler(s) QDAY with Breo Ellipta (Fluticasone furoate 200 mcg and Vilanterol 25 mcg inhalation powder) / 1 inhalation . to suppress bronchial inflammation and edema by the use of systemic steroid sparing therapy. Additional Aerosolized Treatments: Hand Held Nebulizer Tx PRN with Albuterol Sulfate: Unit dose 0.083%. to reduce work of breathing and improve pulmonary gas exchange. . The patient will be re-evaluated: No re-evaluation needed. Indications for treatment met. The Triage Level is: (Assessment Score = 0 - 5) Level 5. Triage Level Definitions: Level 1 Severe Respiratory/Airway Compromise Level 2 Moderate Respiratory/Airway Compromise or high risk for pulmonary complications Level 3 Mild Respiratory/Airway Compromise or moderate risk for pulmonary complications Level 4 Episodic Respiratory/Airway Compromise or low risk for pulmonary complications Level 5 No Respiratory/Airway Compromise Triage 1 Triage 2 Triage 3 Triage 4 Triage 5 greater than 20 16 - 20 11 - 15 6 - 10 0 - 5 Medical Record Assessment Clinical Findings Pulmonary Status: 2 - Smoking more than or equal to 1 pack/day Surgical Status: 0 - No Surgical History Chest X-Ray: 0 - Not Performed or performed greater than 3 days ago Assessment Score: 2 Patient Assessment Clinical Findings Respiratory Pattern: 0 - RR 12 - 20; Patient only gets breathless with strenuous exercise. Breath Sounds: 0 - Clear to auscultation Cough Effectiveness: 0 - Strong non-productive Sputum Production: 0 - No sputum production Level of Activity: 0 - Ambulatory O2 needed to keep SpO2 greater than or equal to 92%: 0 - Room Air Assessment Score: 0 Total Assessment Score: 2 Breath Sounds: Inspiratory and expiratory clear and diminished bilaterally.. Cough and Sputum: No cough was present.. Vital Signs: Resp: 18 (08/31/23 030) Pulse: 70 (08/31/23299) Temp: 36.4 C (97.5 F) (08/31/23299) BP: 152/75 (01/06/24 0300) SpO2: 98 % (08/31/23 0300) Primary Service: Med L. Admitting Diagnosis: Hyperkalemia [E87.5] ABHILASH (acute kidney injury) (HCC) [N17.9] Pulmonary Diagnosis: current smoker . Prescriptions/Home Medications/Durable Medical Equipment: BID Dulera, PRN Albuterol . Recommended New home medications/durable medical equipment/outpatient pulmonary/sleep referral TBD. * Care Plan - María Rodriguez RN - 08/31/2023 3:14 AM EST Clinical Goal(s): Pt will remain free from falls this shift. (08/30/23 1900) Possible barriers to meeting goal(s)/advancing plan of care: pelvic fracture, pain Stability of the patient: Moderately stable - low risk of patient condition declining or worsening Summary regarding today's goal(s): Met: Pt remained free from falls this shift. Recommendations: Non skid socks, crutches, supervision out of bed, belongings near pt, reinforce use of call martinez * Communication - Chuck Chirinos MD - 08/30/2023 5:31 PM EST Patient admitted for increased shortness of breath and lethargy due to missed dialysis sessions. She underwent emergent dialysis in the morning and was symptomatically better on my evaluation. Comfortable on room air, complaining of bilateral hip pains. Repeat labs ordered but not acquired due to unknown reasons. Telemetry unrevealing. XR pelvis ordered. * Ancillary Progress Note - Jae Rivas RN - 08/30/2023 2:24 PM EST CARE MANAGEMENT - ADULT TRANSITION NOTE [facility] [address] Name: Alexandra Arguello Location: [facility] G2/A Date: 08/30/2023 Time: 2:24 PM Risk Stratification Risk Stratification Psycho Social / Medical Concerns Identified: Adjustment to illness/injury;End Stage Renal Disease (ESRD) (08/30/231422) Readmission Risk Score: 15.57 (08/30/23 1201) AM-PAC Score With Stairs : 18 (08/30/23 0213) Caregiver Information Patient Contacts Name Relation Home Work Mobile Chelly Dean Grandparent [phone] Mauri Garland Significant Other [phone] Transition of Care Checklist Transition of Care Checklist (aka Readmission Risk Score) Discharge Disposition: Home (08/30/231422) Home or Home w/Home Health: Moderate (12-17%) (08/30/231422) Narrative: Pt discussed in IDT Rounds today. Admited for emergent hemodialysis. Transferred from [facility]. Hyperkalemic after missing two outpatient dialysis sessions at [facility]. MWF OP HD. Released in [place] to [facility]. AMPAC= 18 Lives with spouse. Ambulates with crutches. Possible discharge home today. Please contact CM with any further concerns. Anticipated Transportation at Discharge: family/friend Patient/Family Expectations: home Transition Planning Transition Planning Transition Plan/Considerations: Needs uncertain at this time - Continue monitoring for needs (08/30/231422) Insurance Considerations: N/A (08/30/231422) Post-Acute Care needs identified and Referrals Completed: Dialysis (08/30/231422) Agency Choice Due to: Care previously established (08/30/231422) Additional Considerations: none Care Management will continue to monitor and assist with discharge planning needs * Ancillary Progress Note - Maricarmen Segura RDN - 08/30/2023 2:14 PM EST CLINICAL NUTRITION ADULT RISK ASSESSMENT [address] [address] Name: Alexandra Arguello Location: [facility] G219/A Date: 08/30/2023 Time: 2:14 PM How patient was identified (select 2): Wristband, date, and Name Alexandra Arguello is a 37 year old female being assessed for clinical nutrition risk related to dialysis Primary diagnosis: Admitted for emergent dialysis - hx of ESRD on HD MWF, HTN, renal transplant, T2DM Other pertinent information: Pt briefly opened eyes, but was falling asleep during assessment. Noted by nursing that pt had been lethargic throughout the day. No recent weight loss noted per EHR. Unsure what most recent EDW has been. Pt had breakfast and lunch tray present in room that appeared untouched. May need to add supplementation if intake remains poor throughout admission. Unable to obtain further information at this time due to pt's lethargy. Latest Reference Range & Units 08/30/23 03:26 Sodium 135 - 146 mmol/L 135 - 146 mmol/L 131 (L) 131 (L) Potassium 3.5 - 5.1 mmol/L 3.5 - 5.1 mmol/L 6.2 (H) 6.2 (H) BUN 6 - 20 mg/dL 6 - 20 mg/dL 104 (H) 102 (H) Creatinine 0.5 - 1.0 mg/dL 0.5 - 1.0 mg/dL 15.1 (H) 15.0 (H) Estimated Glomerular Filtration Rate >=60 mL/min >=60 mL/min 3 (L) 3 (L) Magnesium 1.5 - 2.6 mg/dL 3.0 (H) Phosphorus 2.5 - 4.8 mg/dL 2.5 - 4.8 mg/dL 11.0 (H) 10.9 (H) ESRD on HD - on restricted diet - pre dialysis Anthropometrics Measurements Admission weight (for dietitians): 90.1 kg Height: 167.6 cm (5' 6") (08/30/23227) Weight: 90.1 kg (198 lb 10.2 oz) (08/30/23227) BMI: 32.08 (08/30/23227) Usual Body Weight or EDW for Dialysis Patients: EDW unknown Diet: Renal Dialysis Adult Previously followed diet: Unable to obtain Food Allergies/Intolerances: No known Oral Nutrition Supplement (ONS): None Pertinent medications/vitamins/minerals/supplements: phoslo, novolog, omeprazole RISK FACTORS: Adult Energy Intake: Unable to obtain at present time Interpretation of Weight Change: No recent/significant weight change Skin: Intact NUTRITION RISK CATEGORY: Dialysis Risk: BMI less than 23 - no Pre-dialysis serum albumin less than 3.5 gm/dl for HD or less than 3.3 gm/dl for PD - no NUTRITION RISK CATEGORY: Unable to be determined Clinical Nutrition Recommendations: Diet: Continue current nutrition plan NUTRITION INTERVENTION/PLAN: Continue current care plan Will follow and adjust nutritional plan as medical condition requires. Please contact for change(s)in patient condition requiring earlier intervention. Maricarmen Segura RDN, LDN Clinical Dietitian Extension: [phone] [employer] * Care Plan - Jailene Perkins RN - 08/30/2023 3:41 AM EST Clinical Goal(s): Patient will remain safe and free from falls during the shift (08/30/23214) Possible barriers to meeting goal(s)/advancing plan of care: clinical condition, recent pelvic hip fx Stability of the patient: Moderately stable - low risk of patient condition declining or worsening Summary regarding today's goal(s): Met: patient remained safe and free from falls during the shift Recommendations: continue standard fall precautions, bed at low level and alarm on, call martinez on and within reach, pt oriented x4 and uses crutches d/t pelvic hip fx, hourly rounding documented in this encounter Plan of Treatment Upcoming Encounters Date Type Department Care Team (Late st Contact Info) Description 09/11/2023 11:00 AM EST Office Visit [facility] [address] [place] [address] Adolph Aldridge MD [address] [place] [facility] [place] [address] Health Maintenance Due Date Last Done Comments DISCUSS TOBACCO CESSATION (REFER TO SMARTSET #[id number]) 1985 HPV/Co-Test 11/14/2015 COVID-19 Vaccine (3 - [...] this encounter Medical Devices Implanted Type Area Finish Grinder Device Identifier Shelf Expiration Date Model / Serial / Lot Stent Protege Gps [id number] - [id number] Implanted:Qty : 1 on 09/29/2020 by Carmelo Ramos MD at OR [facility] Left: Chest [employer] : VASCULAR [id number] 09/20/2022 [id number] / / [id number] Stent Viab [id number] - [id number] Implanted:Qty : 1 on 04/16/2023 by Carmelo Ramos MD at OR [facility] Right: Subclavian [employer] [id number] 01/26/2026 [id number] / [id number] / [id number] documented as of this encounter Procedures Procedure Name Priority Date/Time Associated Diagnosis Comments GLUCOSE METER, POINT OF CARE JES 09/01/2023 4:52 PM EST GLUCOSE METER, POINT OF CARE JES 09/01/2023 11:56 AM EST RENAL FUNCTION PANEL Routine 09/01/2023 4:46 AM EST GLUCOSE METER, POINT OF CARE JES 08/31/2023 9:21 PM EST GLUCOSE METER, POINT OF CARE JES 08/31/2023 4:37 PM EST GLUCOSE METER, POINT OF CARE JES 08/31/2023 12:46 PM EST GLUCOSE METER, POINT OF CARE JES 08/31/2023 8:00 AM EST RENAL FUNCTION PANEL Routine 08/31/2023 7:03 AM EST XR PELVIS COMPLETE Routine 08/30/2023 9: 19 PM EST GLUCOSE METER, POINT OF CARE JES 08/30/2023 9:00 PM EST RENAL FUNCTION PANEL STAT 08/30/2023 8:12 PM EST GLUCOSE METER, POINT OF CARE JES 08/30/2023 4:38 PM EST PT INR Routine 08/30/2023 8:10 AM EST APTT Routine 08/30/2023 8:10 AM EST MRSA SCREEN, PCR Routine 08/30/2023 4:51 AM EST TYPE AND SCREEN Routine 08/30/2023 4:28 AM EST HEMOGLOBIN A1C Routine 08/30/2023 4:12 AM EST DIFFERENTIAL, AUTOMATED Routine 08/30/2023 3:26 AM EST BLOOD GAS, VENOUS STAT 08/30/2023 3:2 6 AM EST RENAL FUNCTION PANEL Routine 08/30/2023 3:26 AM EST HEPATIC FUNCTION PANEL Routine 08/30/2023 3:26 AM EST BASIC METABOLIC PANEL Routine 08/30/2023 3:26 AM EST CBC Routine 08/30/2023 3:26 AM EST PHOSPHORUS Routine 08/30/2023 3:26 AM EST CBC Routine 08/30/2023 3:26 AM EST MAGNESIUM Routine 08/30/2023 3:26 AM EST GLUCOSE METER, POINT OF CARE JES 08/30/2023 3:08 AM EST documented in this encounter Results * GLUCOSE METER, POINT OF CARE (09/01/2023 4:52 PM EST) [facility] Glucose Meter 108 70 - 120 mg/dL 09/01/2023 6:10 PM EST [facility] [employer] Blood Whole blood specimen / Unknown 09/01/2023 4:52 PM EST 09/01/2023 6:10 PM EST Chuck Mcpherson MD LAB POINT OF C ARE TEST DOCKED DEVICE UNSOLICITED RESULTS [facility] [address] [place] [address] * GLUCOSE METER, POINT OF CARE (09/01/2023 11:56 AM EST) Glucose Meter 113 70 - 120 mg/dL 09/01/2023 12:07 PM EST [facility] [employer] Blood Whole blood specimen / Unknown 09/01/2023 11:56 AM EST 09/01/2023 12:07 PM EST Chuck Mcpherson MD LAB POINT OF C ARE TEST DOCKED DEVICE UNSOLICITED RESULTS [facility] [address] [place] [address] * (ABNORMAL) RENAL FUNCTION PANEL (09/01/2023 4:46 AM EST) BUN 58(H) 6 - 20 mg/dL 09/01/2023 5:42 AM EST LABORATORY [facility] Creatinine 10.2(H) 0.5 - 1.0 mg/dL 09/01/2023 5:42 AM EST LABORATORY [facility] Estimated Glomerular Filtration Rate 5(L) >=60 mL/min 09/01/2023 5:42 AM EST LABORATORY [facility] Comment:eGFR is calculated b ased on the CKD-EPI 2020 equation Sodium 135 135 - 146 mmol/L 09/01/2023 5:42 AM EST LABORATORY [facility] Potassium 4.3 3.5 - 5.1 mmol/L 09/01/2023 5:42 AM EST LAB[facility]ORY [facility] Chloride 93(L) 98 - 107 mmol/L 09/01/2023 5:42 AM EST LAB[facility] CO2 23 22 - 32 mmol/L 09/01/2023 5:42 AM EST [facility] Anion Gap 19(H) 7 - 15 mmol/L 09/01/2023 5:42 AM EST [facility] Glucose 126(H) 70 - 120 mg/dL 09/01/2023 5:42 AM EST [facility] Calcium 9.5 8.4 - 10.2 mg/dL 09/01/2023 5:42 AM EST LAB[facility] Albumin 3.7(L) 3.8 - 5.0 g/dL 09/01/2023 5:42 AM EST LAB[facility] Phosphorus 7.3(H) 2.5 - 4.8 mg/dL 09/01/2023 5:42 AM EST [facility] Blood Venous blood specimen / Unknown Venipuncture / Unknown 09/01/2023 4:46 AM EST 09/01/2023 5:07 AM EST Chuck Mcpherson MD LAB BLOOD [facility] [address] [place] [address] * (ABNORMAL) GLUCOSE METER, POINT OF CARE (08/31/2023 9:21 PM EST) Glucose Meter 130(H) 70 - 120 mg/dL 08/31/2023 9:29 PM EST [employer] Blood Whole blood specimen / Unknown 08/31/2023 9:21 PM EST 08/31/2023 9:29 PM EST Chuck Mcpherson MD LAB POINT OF C ARE TEST DOCKED DEVICE UNSOLICITED RESULTS Performing Organization Address City/[facility]/ZIP Co de Phone Number [facility] [address] [place] [address] * (ABNORMAL) GLUCOSE METER, POINT OF CARE (08/31/2023 4:37 PM EST) Glucose Meter 151(H) 70 - 120 mg/dL 08/31/2023 5:08 PM EST [employer] Blood Whole blood specimen / Unknown 08/31/2023 4:37 PM EST 08/31/2023 5:08 PM EST Chuck Mcpherson MD LAB POINT OF C ARE TEST DOCKED DEVICE UNSOLICITED RESULTS [facility] [address] [place] [address] * GLUCOSE METER, POINT OF CARE (08/31/2023 12:46 PM EST) Glucose Meter 113 70 - 120 mg/dL 08/31/2023 12:53 PM EST [employer] Blood Whole blood specimen / Unknown 08/31/2023 12:46 PM EST 08/31/2023 12:53 PM EST Chcuk Mcpherson MD LAB POINT OF C ARE TEST DOCKED DEVICE UNSOLICITED RESULTS [facility] [address] [place] [address] * GLUCOSE METER, POINT OF CARE (08/31/2023 8:00 AM EST) Glucose Meter 74 70 - 120 mg/dL 08/31/2023 8:12 AM EST [facility] Blood Whole blood specimen / Unknown 08/31/2023 8:00 AM EST 08/31/2023 8:12 AM EST Chuck Mcpherson MD LAB POINT OF C ARE TEST DOCKED DEVICE UNSOLICITED RESULTS [facility] [address] [place] [address] * (ABNORMAL) RENAL FUNCTION PANEL (08/31/2023 7:03 AM EST) BUN 51(H) 6 - 20 mg/dL 08/31/2023 7:37 AM EST LAB[facility]AT[facility] Creatinine 9.3(H) 0.5 - 1.0 mg/dL 08/31/2023 7:37 AM EST LAB[facility] Estimated Glomerular Filtration Rate 5(L) >=60 mL/min 08/31/2023 7:37 AM EST LAB[facility]ATORY [facility] Comment:eGFR is calculated b ased on the CKD-EPI 2020 equation Sodium 136 135 - 146 mmol/L 08/31/2023 7:37 AM EST LAB[facility] Potassium 5.7(H) 3.5 - 5.1 mmol/L 08/31/2023 7:37 AM EST [facility] Chloride 95(L) 98 - 107 mmol/L 08/31/2023 7:37 AM EST [facility] CO2 22 22 - 32 mmol/L 08/31/2023 7:37 AM EST [facility] Anion Gap 19(H) 7 - 15 mmol/L 08/31/2023 7:37 AM EST [facility] Glucose 81 70 - 120 mg/dL 08/31/2023 7:37 AM EST [facility] Calcium 10.1 8.4 - 10.2 mg/dL 08/31/2023 7:37 AM EST [facility] Albumin 3.7(L) 3.8 - 5.0 g/dL 08/31/2023 7:37 AM EST [facility] Phosphorus 8.1(H) 2.5 - 4.8 mg/dL 08/31/2023 7:37 AM EST LABORATORY GM Blood Venous blood specimen / Unknown Venipuncture / Unknown 08/31/2023 7:03 AM EST 08/31/2023 7:13 AM EST Chuck Mcpherson MD LAB BLOOD ORDE [facility] Organization Address City/State/[facility] Co de Phone Number LABORATORY [facility] [address] [place] [address] * XR PELVIS COMPLETE (08/30/2023 9:19 PM EST) Anatomical Region Laterality Modality Pelvis, Lower Extremity Digital Radiography 08/31/2023 7:48 AM EST Impressions 08/31/2023 7:45 AM EST IMPRESSION 1. Nondisplaced right medial superior pubic ramus fracture. 2. Right lower quadrant calcified mass (in the setting of the right renal transplant) versus residual bowel contrast. Narrative 08/31/2023 7:45 AM EST EXAM XR PELVIS COMPLETE - 08/30/2023 9:19 pm HISTORY b/l hip pain, ?hx of pelvic fx TECHNIQUE Three anterior views of the pelvis were acquired. COMPARISON CT of the abdomen pelvis from 11/02/2014 FINDINGS No acute displaced fracture, dislocation, or destructive process. Cortical irregularity of the right superior pubic ramus is likely a nondisplaced fracture. Joint spaces are within normal limits for age. Mineralization is normal. 6.7 cm right pelvis rim calcified mass versus residual bowel contrast. Procedure Note Baljit Juarez, - 08/31/2023 EXAM XR PELVIS COMPLETE - 08/30/2023 9:19 pm HISTORY b/l hip pain, ?hx of pelvic fx TECHNIQUE Three anterior views of the pelvis were acquired. COMPARISON CT of the abdomen pelvis from 11/02/2014 FINDINGS No acute displaced fracture, dislocation, or destructive process. Cortical irregularity of the right superior pubic ramus is likely anondisplaced fracture. Joint spaces are within normal limits for age. Mineralization is normal. 6.7 cm right pelvis rim calcified mass versus residual bowel contrast. IMPRESSION IMPRESSION 1. Nondisplaced right medial superior pubic ramus fracture. 2. Right lower quadrant calcified mass (in the setting of the right renaltransplant) versus residual bowel contrast. Chuck Mcpherson MD RADIOLOGY ([facility]) * GLUCOSE METER, POINT OF CARE (08/30/2023 9:00 PM EST) Glucose Meter 72 70 - 120 mg/dL 08/30/2023 9:04 PM EST [facility] [employer] [facility] Blood Whole blood specimen / Unknown 08/30/2023 9:00 PM EST 08/30/2023 9:04 PM EST Chuck Mcpherson MD LAB POINT OF C ARE TEST DOCKED DEVICE UNSOLICITED RESULTS [facility] [address] [place] [address] * (ABNORMAL) RENAL FUNCTION PANEL (08/30/2023 8:12 PM EST) BUN 43(H) 6 - 20 mg/dL 08/30/2023 8:51 PM EST LAB[facility] Creatinine 8.2(H) 0.5 - 1.0 mg/dL 08/30/2023 8:51 PM EST LAB[facility] Estimated Glomerular Filtration Rate 6(L) >=60 mL/min 08/30/2023 8:51 PM EST [facility] Comment:eGFR is calculated b ased on the CKD-EPI 2020 equation Sodium 135 135 - 146 mmol/L 08/30/2023 8:51 PM EST LAB[facility] Potassium 4.9 3.5 - 5.1 mmol/L 08/30/2023 8:51 PM EST [facility] Chloride 92(L) 98 - 107 mmol/L 08/30/2023 8:51 PM EST [facility] CO2 24 22 - 32 mmol/L 08/30/2023 8:51 PM EST [facility] Anion Gap 19(H) 7 - 15 mmol/L 08/30/2023 8:51 PM EST [facility] Glucose 83 70 - 120 mg/dL 08/30/2023 8:51 PM EST [facility] Calcium 10.4(H) 8.4 - 10.2 mg/dL 08/30/2023 8:51 PM EST [facility] Albumin 3.8 3.8 - 5.0 g/dL 08/30/2023 8:51 PM EST [facility] Phosphorus 7.4(H) 2.5 - 4.8 mg/dL 08/30/2023 8:51 PM EST [facility] Blood Venous blood specimen / Unknown Venipuncture / Unknown 08/30/2023 8:12 PM EST 08/30/2023 8:18 PM EST Chuck Mcpherson MD LAB BLOOD [facility] [address] [place] [address] * GLUCOSE METER, POINT OF CARE (08/30/2023 4:38 PM EST) Glucose Meter 83 70 - 120 mg/dL 08/30/2023 4:42 PM EST [facility] [employer] [facility] Blood Whole blood specimen / Unknown 08/30/2023 4:38 PM EST 08/30/2023 4:42 PM EST Chuck Mcpherson MD LAB POINT OF C ARE TEST DOCKED DEVICE UNSOLICITED RESULTS [facility] [address] [place] [address] * APTT (08/30/2023 8:10 AM EST) aPTT 29 21 - 38 seconds 08/30/2023 8:48 AM EST LABORATORY [facility] Blood Venous blood specimen / Unknown Venipuncture / Unknown 08/30/2023 8:10 AM EST 08/30/2023 8:23 AM EST Narrative LABORATORY [facility] - 08/30/2023 8:48 AM EST Anticoagulation may affect testing. Refer to [facility] [employer] Test Catalog for a list of effects. Monico Damian MD LAB BLOOD ORDERABLES Performing Organization Address City/[facility] Co de Phone Number LABORATORY [place] [address] [place] [address] * PT INR (08/30/2023 8:10 AM EST) Pathologist [facility] Prothrombin Time 15.1 11.6 - 15.2 seconds 08/30/2023 8:47 AM EST LABORATORY [facility] INR 1.2 0.8 - 1.2 08/30/2023 8:47 AM EST LABORATORY [facility] Blood Venous blood specimen / Unknown Venipuncture / Unknown 08/30/2023 8:10 AM EST 08/30/2023 8:23 AM EST Narrative LABORATORY [facility] - 08/30/2023 8:47 AM EST Warfarin Therapy INR: 2.0-3.0 conventional anticoagulation INR: 2.5-3.5 high intensity anticoagulation Monico Damian MD LAB BLOOD ORDERABLES Performing Organization Address [facility] de Phone Number LABORATORY [address] [address] * MRSA SCREEN, PCR (08/30/2023 4:51 AM EST) Pathologist [facility] MRSA PCR Result Negative Negative 9:50 AM EST LABORATORY [facility] Comment:No Methicillin resis tant Staphylococcus aureus detected by PCR (amplified probe). Upper Respiratory (Nares, Bilateral) Non-blood Collection / Unknown 08/30/2023 4:51 AM EST 08/30/2023 5:03 AM EST Zechariah LINDSAY LAB MICRO - GENERA L ORDERABLES Performing Organization Address [facility] de Phone Number LABORATORY [facility] [address] [place] [address] * TYPE AND SCREEN (08/30/2023 4:28 AM EST) ABO A 08/30/2023 5:50 AM EST LABORATORY [facility] BLOOD BANK Rh Positive 08/30/2023 5:50 AM EST LABORATORY [facility] BLOOD BANK Red Blood Cell Antibody Screen Negative 08/30/2023 5:50 AM EST LABORATORY [facility] BLOOD BANK Specimen Expiration Date 09/02/2023 23:59 08/30/2023 5:50 AM EST LABORATORY [facility] BLOOD BANK Blood Venous blood specimen / Unknown Venipuncture / Unknown 08/30/2023 4:28 AM EST 08/30/2023 4:35 AM EST Monico Damian MD LAB BLOOD BANK TEST ORDERABLES Performing Organization Address [facility] Phone Number LABORATORY [facility] BLOOD BANK [address] [place] [address] * (ABNORMAL) HEMOGLOBIN A1C (08/30/2023 4:12 AM EST) Pathologist [facility] Hemoglobin A1C 5.9(H) 4.0 - 5.6 % 08/30/2023 5:01 AM EST LABORATORY [facility] Comment:The use of HbA1c to monitor glycemic status is based on normal hemoglobin and HbA composition. This test should not be used in patients with abnormal hemoglobin that affects the half life of the red blood cell or the in vivo glycation rates. Estimated Average Glucose 123 <126 mg/dL 08/30/2023 5:01 AM EST LABORATORY [facility] Blood Venous blood specimen / Unknown Venipuncture / Unknown 08/30/2023 4:12 AM EST 08/30/2023 4:19 AM EST Zechariah LINDSAY LAB BLOOD ORDERABL ES Performing Organization Address [facility] de Phone Number LABORATORY [facility] [address] [place] [address] * (ABNORMAL) RENAL FUNCTION PANEL (08/30/2023 3:26 AM EST) BUN 104(H) 6 - 20 mg/dL 08/30/2023 11:52 AM EST LAB[facility]ATORY [facility] Creatinine 15.1(H) 0.5 - 1.0 mg/dL 08/30/2023 11:52 AM EST LAB[facility]ORY [facility] Estimated Glomerular Filtration Rate 3(L) >=60 mL/min 08/30/2023 11:52 AM EST LAB[facility]ATORY [facility] Comment: eGFR is calculated based on the CKD-EPI 2020 equation eGFR is calculated based on the CKD-EPI 2020 equation Sodium 131(L) 135 - 146 mmol/L 08/30/2023 11:52 AM EST LAB[facility]ORY [facility] Potassium 6.2(H) 3.5 - 5.1 mmol/L 08/30/2023 11:52 AM EST LAB[facility]ORY [facility] Chloride 81(L) 98 - 107 mmol/L 08/30/2023 11:52 AM EST LAB[facility] CO2 22 22 - 32 mmol/L 08/30/2023 11:52 AM EST LAB[facility] Anion Gap 28(H) 7 - 15 mmol/L 08/30/2023 11:52 AM EST [facility] Glucose 106 70 - 120 mg/dL 08/30/2023 11:52 AM EST LAB[facility] Calcium 9.9 8.4 - 10.2 mg/dL 08/30/2023 11:52 AM EST [facility] Albumin 3.9 3.8 - 5.0 g/dL 08/30/2023 11:52 AM EST LAB[facility] Phosphorus 11.0(H) 2.5 - 4.8 mg/dL 08/30/2023 11:52 AM EST [facility] Blood Venous blood specimen / Unknown 08/30/2023 3:26 AM EST 08/30/2023 3:57 AM EST Chuck Mcpherson MD LAB BLOOD ORDE [facility] Organization Address City/State/ZIP Co de Phone Number LABORATORY [facility] [address] [place] [address] * (ABNORMAL) BLOOD GAS, VENOUS (08/30/2023 3:26 AM EST) Temperature 37.0 C 08/30/2023 4:01 AM EST LABORATORY [facility] pH, Venous 7.301(L) 7.320 - 7.430 units 08/30/2023 4:01 AM EST LAB[facility]ATORY [facility] pCO2, Venous 51.5 40.0 - 60.0 mmHg 08/30/2023 4:01 AM EST LAB[facility]ATORY [facility] pO2, Venous 32.3 25.0 - 50.0 mmHg 08/30/2023 4:01 AM EST LABORATORY [facility] Base Excess, Venous -1.6 -2.0 - 2.0 mmol/L 08/30/2023 4:01 AM EST [facility] Hemoglobin, Whole Blood 10.7(L) 12.0 - 15.3 g/dL 08/30/2023 4:01 AM EST [facility] Oxyhemoglobin, Venous 47.3 40.0 - 85.0 % total Hgb 08/30/2023 4:01 AM EST [facility] Carboxyhemoglobi n, Whole Blood 2.1(H) <=1.5 % total Hgb 08/30/2023 4:01 AM EST [facility] Comment:Smokers: 0-9.0 % Methemoglobin, Whole Blood 0.8 <=1.5 % total Hgb 08/30/2023 4:01 AM EST [facility] Reduced Hemoglobin, Venous 49.8 % total Hgb 08/30/2023 4:01 AM EST [facility] O2 Content, Venous 7.1 7.0 - 18.0 %vol 08/30/2023 4:01 AM EST [facility] Bicarbonate, Whole Blood 24.6 23.0 - 31.0 mmol/L 08/30/2023 4:01 AM EST [facility] Blood Venous blood specimen / Unknown 08/30/2023 3:26 AM EST 08/30/2023 3:57 AM EST Monico Damian MD LAB BLOOD ORDERABLES [facility] [address] [place] [address] * (ABNORMAL) DIFFERENTIAL, AUTOMATED (08/30/2023 3:26 AM EST) WBC 6.31 4.00 - 10.80 K/uL 08/30/2023 4:17 AM EST [facility] Neutrophils % 71.9 40.0 - 75.0 % 08/30/2023 4:17 AM EST [facility] Lymphocytes % 17.4(L) 18.0 - 42.0 % 08/30/2023 4:17 AM EST [facility] Monocytes % 8.1 1.0 - 11.0 % 08/30/2023 4:17 AM EST [facility] Eosinophils % 1.3 0.0 - 6.0 % 08/30/2023 4:17 AM EST [facility] Basophils % 0.5 0.0 - 2.0 % 08/30/2023 4:17 AM EST [facility] Immature Granulocytes % 0.8 0.0 - 2.0 % 08/30/2023 4:17 AM EST [facility] Absolute Neutrophils 4.54 1.80 - 7.70 K/uL 08/30/2023 4:17 AM EST [facility] Absolute Lymphocytes 1.10 1.00 - 4.80 K/ul 08/30/2023 4:17 AM EST [facility] Absolute Monocytes 0.51 0.00 - 1.10 K/uL 08/30/2023 4:17 AM EST [facility] Absolute Eosinophils 0.08 0.00 - 0.70 K/uL 08/30/2023 4:17 AM EST [facility] Absolute Basophils 0.03 0.00 - 0.20 K/uL 08/30/2023 4:17 AM EST [facility] Absolute Immature Granulocytes 0.05 0.00 - 0.20 K/uL 08/30/2023 4:17 AM EST [facility] Blood Venous blood specimen / Unknown 08/30/2023 3:26 AM EST 08/30/2023 3:57 AM EST Monico Damian MD LAB BLOOD ORDERABLES [facility] [address] [place] [address] * (ABNORMAL) CBC (08/30/2023 3:26 AM EST) WBC 6.31 4.00 - 10.80 K/uL 08/30/2023 4:17 AM EST [facility] RBC 3.68 3.85 - 5.15 M/uL 08/30/2023 4:17 AM EST [facility] HGB 11.9(L) 12.0 - 15.3 g/dL 08/30/2023 4:17 AM EST [facility] HCT 39.1 36.0 - 45.2 % 08/30/2023 4:17 AM EST [facility] MCV 106.3 81.5 - 97.5 fL 08/30/2023 4:17 AM EST [facility] MCH 32.3 27.0 - 34.0 pg 08/30/2023 4:17 AM EST [facility] MCHC 30.4 32.0 - 36.0 g/dL 08/30/2023 4:17 AM EST [facility] RDW 14.4 11.5 - 15.5 % 08/30/2023 4:17 AM EST [facility] PLT 107(L) 140 - 400 K/uL 08/30/2023 4:17 AM EST [facility] MPV 10.7 6.6 - 11.1 fL 08/30/2023 4:17 AM EST [facility] nRBCs 0 <=0 /100 WBCs 08/30/2023 4:17 AM EST [facility] Blood Venous blood specimen / Unknown 08/30/2023 3:26 AM EST 08/30/2023 3:57 AM EST Monico Damian MD LAB BLOOD ORDERABLES [facility] [address] [place] [address] * (ABNORMAL) MAGNESIUM (08/30/2023 3:26 AM EST) Magnesium 3.0(H) 1.5 - 2.6 mg/dL 08/30/2023 5:12 AM EST [facility] Blood Venous blood specimen / Unknown 08/30/2023 3:26 AM EST 08/30/2023 3:57 AM EST Monico Damian MD LAB BLOOD ORDERABLES Performing Organization Address [facility] Co de Phone Number [facility] [address] [place] [address] * (ABNORMAL) PHOSPHORUS (08/30/2023 3:26 AM EST) Phosphorus 10.9(H) 2.5 - 4.8 mg/dL 08/30/2023 5:12 AM EST [facility] Blood Venous blood specimen / Unknown 08/30/2023 3:26 AM EST 08/30/2023 3:57 AM EST Monico Damian MD LAB BLOOD ORDERABLES Performing Organization Address [facility] de Phone Number [facility] [address] [place] [address] * (ABNORMAL) HEPATIC FUNCTION PANEL (08/30/2023 3:26 AM EST) Albumin 3.7(L) 3.8 - 5.0 g/dL 08/30/2023 5:12 AM EST [facility] AST 38(H) 10 - 35 U/L 08/30/2023 5:12 AM EST [facility] Alkaline Phosphatase 108 35 - 130 U/L 08/30/2023 5:12 AM EST [facility] ALT 29 10 - 35 U/L 08/30/2023 5:12 AM EST [facility] Bilirubin, Total 0.3 <=1.2 mg/dL 08/30/2023 5:12 AM EST [facility] Bilirubin, Direct <0.2 0.0 - 0.3 mg/dL 08/30/2023 5:12 AM EST [facility] Protein 6.8 6.0 - 8.3 g/dL 08/30/2023 5:12 AM EST [facility] Blood Venous blood specimen / Unknown 08/30/2023 3:26 AM EST 08/30/2023 3:57 AM EST Monico Damian MD LAB BLOOD ORDERABLES LABORATORY [facility] [address] [place] [address] * (ABNORMAL) BASIC METABOLIC PANEL (08/30/2023 3:26 AM EST) BUN 102(H) 6 - 20 mg/dL 08/30/2023 5:12 AM EST [facility] Creatinine 15.0(H) 0.5 - 1.0 mg/dL 08/30/2023 5:12 AM EST [facility] Estimated Glomerular Filtration Rate 3(L) >=60 mL/min 08/30/2023 5:12 AM EST [facility] Comment:eGFR is calculated b ased on the CKD-EPI 2020 equation Sodium 131(L) 135 - 146 mmol/L 08/30/2023 5:12 AM EST [facility] Potassium 6.2(H) 3.5 - 5.1 mmol/L 08/30/2023 5:12 AM EST [facility] Chloride 81(L) 98 - 107 mmol/L 08/30/2023 5:12 AM EST [facility] CO2 22 22 - 32 mmol/L 08/30/2023 5:12 AM EST [facility] Anion Gap 28(H) 7 - 15 mmol/L 08/30/2023 5:12 AM EST [facility] Glucose 107 70 - 120 mg/dL 08/30/2023 5:12 AM EST [facility] Calcium 9.9 8.4 - 10.2 mg/dL 08/30/2023 5:12 AM EST [facility] Blood Venous blood specimen / Unknown 08/30/2023 3:26 AM EST 08/30/2023 3:57 AM EST Monico Damian MD LAB BLOOD ORDERABLES LABORATORY [facility] [address] [place] [address] * GLUCOSE METER, POINT OF CARE (08/30/2023 3:08 AM EST) Glucose Meter 102 70 - 120 mg/dL 08/30/2023 3:32 AM EST [facility] Blood Whole blood specimen / Unknown 08/30/2023 3:08 AM EST 08/30/2023 3:32 AM EST Monico Damian MD LAB POINT OF CARE TE ST DOCKED DEVICE UNSOLICITED RESULTS [facility] [address] [place] [address] documented in this encounter Visit Diagnoses Diagnosis Admission for dialysis ([facility])- Primary Encounter for extracorporeal dialysis ABHILASH (acute kidney injury) ([facility]) Acute kidney failure, unspecified Chest pain Chest pain, unspecified Type 2 diabetes mellitus with hemoglobin A1c goal of less than 7.0% ([facility]) ESRD on dialysis ([facility]) End stage renal disease 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 Depression with anxiety Dysthymic disorder HTN, goal below 140/90 Unspecified essential hypertension Bipolar disorder, in partial remission, most recent episode depressed ([facility]) Bipolar I disorder, most recent episode (or current) depressed, in partial or unspecified remission Gastro-esophageal reflux disease without esophagitis Esophageal reflux Cardiomegaly Closed nondisplaced fracture of pelvis with routine healing documented in this encounter Administered Medications Inactive Administered Medications - up to 3 most recent administrations Medication Order MAR Action Action Date Dose Rate Site Acetaminophen (Tylenol) tab 650 mg 650 mg, Oral, Q6H PRN Pain, Mild, Fever >38C(100.5F), Starting on Sat08/30/23 at 0325, Until 09/01/23 at 2235, Maximum of 4 grams (4000 mg) per day. Given 09/01/2023 12:26 PM EST 650 mg Given 08/31/2023 7:25 PM EST 650 mg Given 08/30/2023 6:09 PM EST 650 mg Albuterol Sulfate (Proventil) (2.5 MG/3ML) 0.083% inhalation solution 2.5 mg 2.5 mg, Nebulizer, Q4H PRN Dyspnea, Starting on 08/31/23 at 0515, Until 09/01/23 at 2235 amLODIPine (Norvasc) tab 10 mg 10 mg, Oral, Daily(AM), First dose on Sat08/30/23 at 0515, Until Discontinued Given 09/01/2023 10:57 AM EST 10 mg Given 08/31/2023 8:17 AM EST 10 mg Given 08/30/2023 4:50 AM EST 10 mg calcium acetate (Phos Binder) (Phoslo) cap/tab 2,001 mg 2,001 mg, Oral, WITH MEALS, First dose on Sat08/30/23 at 0800, Until Discontinued Given 09/01/2023 10:57 AM EST 2,00 1 mg Given 08/31/2023 5:33 PM EST 2,001 mg Given 08/31/2023 12:09 PM EST 2,001 mg carBAMazepine ER (Carbatrol) cap 200 mg 200 mg, Oral, Q12H, First dose on Sat08/30/23 at 0900, Until Discontinued Given 09/01/2023 10:57 AM EST 200 mg Given 08/31/2023 9:05 PM EST 200 mg Given 08/31/2023 8:17 AM EST 200 mg Carvedilol (Coreg) tab 6.25 mg 6.25 mg, Oral, BID (.AM/PM), First dose on Sat08/30/23 at 0900, Until Discontinued, Hold for HR less than 60 or SBP below 100 and notify service if dose is held MUST BE GIVEN WITH MEAL Given 09/01/2023 10:57 AM EST 6.25 mg Given 08/31/2023 9:04 PM EST 6.25 mg Given 08/31/2023 8:17 AM EST 6.25 mg cloNIDine (Catapres) tab 200 mcg 200 mcg, Oral, Daily(AM), First dose on Sat09/01/23 at 0900, Until Discontinued, Hold for SBP below 100 and notify service if dose is held Given 09/01/2023 10:56 AM EST 200 mcg hEParin 1000 UNIT/ML inj (dialysis orders only) Intravenous, ONCE, On Sat08/30/23 at 0445, For 1 dose, Bolus: 1000 units To be given ONLY on dialysis only. Enter Date of Dialysis Rx:: 08/30/2022 Given 08/30/2023 7:14 AM EST 1,000 Units hEParin 1000 UNIT/ML inj (dialysis orders only) Intravenous, ONCE, On Sat08/30/23 at 0445, For 1 dose, Maintenance: Drip: 500 Units/ Hr. STOP heparin last hour of dialysis Stop 1 hour before dialysis end in AVF/AVG. Continue through dialysis in CVC. The total delivered dose is approximately 2,500 to 5,000 units, based on weight and treatment duration assumptions. Given 08/30/2023 7:14 AM EST 1,500 Units hEParin 1000 UNIT/ML inj (dialysis orders only) Intravenous, ON DIALYSIS, Starting on 09/01/23 at 0619, Until 09/01/23 at 2235, For 7 days, Bolus: 1000 units To be given ONLY on dialysis only. Enter Date of Dialysis Rx:: 09/01/2023 Given 09/01/2023 6:00 AM EST 1,000 Units hEParin 1000 UNIT/ML inj (dialysis orders only) Intravenous, ON DIALYSIS, Starting on 09/01/23 at 0620, Until 09/01/23 at 2235, For 7 days, Maintenance: Drip: 500 Units/ Hr. STOP heparin last hour of dialysis Stop 1 hour before dialysis end in AVF/AVG. Continue through dialysis in CVC. The total delivered dose is approximately 2,500 to 5,000 units, based on weight and treatment duration assumptions. Given 09/01/2023 6:49 AM EST 1,250 Units hEParin inj 5,000 Units 5,000 Units, Subcutaneous, Q8H, First dose on 08/31/23 at 0600, Until Discontinued Given 09/01/2023 5:04 AM EST 5,000 Units Abdomen Right Lower Given 08/31/2023 9:05 PM EST 5,000 Units A bdomen Left Upper Given 08/31/2023 1:35 PM EST 5,000 Units A bdomen Right Upper hydrALAZINE (Apresoline) tab 100 mg 100 mg, Oral, TID(AM/NOON/HS), First dose (after last modification) on 08/31/23 at 2200, Until Discontinued, Hold for SBP below 100 and notify service if dose is held Given 09/01/2023 12:27 PM EST 100 mg Given 09/01/2023 5:04 AM EST 100 mg Given 08/31/2023 9:04 PM EST 100 mg hydrALAZINE (Apresoline) tab 50 mg 50 mg, Oral, TID(AM/NOON/HS), First dose on 08/31/23 at 1200, Until Discontinued, Hold for SBP below 100 and notify service if dose is held Given 08/31/2023 12:09 PM EST 50 mg HYDROmorphone (Dilaudid) tab 2 mg 2 mg, Oral, Q8H PRN Pain, Breakthrough, Starting on 09/01/23 at 1406, Until 09/01/23 at 2235 Given 09/01/2023 2:12 PM EST 2 mg hydrOXYzine HCl tab 25 mg 25 mg, Oral, Q6H PRN Anxiety, Starting on Sat08/30/23 at 0257, Until 09/01/23 at 2235 Given 09/01/2023 6:19 AM EST 25 mg Given 08/30/2023 7:15 AM EST 25 mg insulin aspart (NovoLOG) inj Subcutaneous, W/MEALS AND HS, First dose on Sat08/30/23 at 0800, Until Discontinued, LOW DOSE (Elderly insulin sensitive patient): Sliding Scale Correctional insulin may be given if the patient is NPO. Dose based on standard build from Insulin Calculator. Do not modify insulin doses in administration instructions! , Glucose less than 70 instructions: Obtain STAT lab blood glucose and call covering provider., Glucose 80-150 (units): 0, Glucose 151-200 (units): 1, Glucose 201-250 (units): 2, Glucose 251-300 (units): 3, Glucose greater than 300 (units): 4, Glucose greater than 300 instructions: Give suggested insulin dose and call covering provider. Given 08/31/2023 5:33 PM EST 1 Units Arm Left Upper LORAzepam (Ativan) tab 0.5 mg 0.5 mg, Oral, DAILY PRN Other, Prior to HD, Starting on 08/31/23 at 2142, Until Sat09/01/23 at 2235 Given 09/01/2023 6:19 AM EST 0.5 mg omeprazole (PriLOSEC) cap 20 mg 20 mg, Oral, Daily(AM), First dose on Sat08/30/23 at 0900, Until Discontinued, This med should NOT be Crushed or Chewed Given 09/01/2023 10:57 AM EST 20 mg Given 08/31/2023 8:17 AM EST 20 mg oxyCODONE (Oxy IR) tab 5 mg 5 mg, Oral, ONCE, On Sat08/30/23 at 2100, For 1 dose Given 08/30/2023 8:42 PM EST 5 mg oxyCODONE-acetaminophen 5-325 mg per tab (Percocet) 1 Tablet 1 Tablet, Oral, ONCE, On 08/31/23 at 2215, For 1 dose, Maximum of 4 grams (4000 mg) of acetaminophen per day Given 08/31/2023 9:52 PM EST 1 Tablet sertraline (Zoloft) tab 100 mg 100 mg, Oral, Daily(AM), First dose on Sat08/30/23 at 0900, Until Discontinued Given 09/01/2023 10:57 AM EST 100 mg Given 08/31/2023 8:17 AM EST 100 mg Sodium Zirconium Cyclosilicate (Lokelma) oral powder PACK 10 g 10 g, Oral, TID(AM/NOON/HS), First dose on 08/31/23 at 0915, Last dose on 09/01/23 at 0600, For 3 doses, Empty entire contents of the packet(s) into a glass with 45 mL of water. Stir well and drink immediately; if powder remains in the glass, add water, stir and drink immediately; repeat until no powder remains. Administer other oral medications at least 2 hours before or 2 hours after dose. Hold dose and notify provider if K is less than 3.5 mmol/L Given 09/01/2023 5:04 AM EST 10 g Given 08/31/2023 9:05 PM EST 10 g Given 08/31/2023 10:15 AM EST 10 g traMADol (Ultram) tab 50 mg 50 mg, Oral, BID PRN Pain, Severe, Starting on 09/01/23 at 0751, Until 09/01/23 at 2235 Given 09/01/2023 8:11 AM EST 50 mg traZODone (Desyrel) tab 200 mg 200 mg, Oral, HS, First dose on Sat08/30/23 at 2200, Until Discontinued Given 08/31/2023 9:04 PM EST 200 mg Given 08/30/2023 8:42 PM EST 200 mg documented in this encounter Active and Recently Administered Medications Times are shown in EST. Scheduled Medication Order 08/30/2023 08/31/2023 09/01/2023 amLODIPine (Norvasc) tab 10 mg 10 mg, Oral, Daily(AM), First dose on Sat08/30/23 at 0515, Until Discontinued 0450 (Given - Provider: Jailene Perkins RN) 0817 (Given - Provider: Juan Torres RN) 1057 (Given - Provider: Juan Torres RN) calcium acetate (Phos Binder) (Phoslo) cap/tab 2,001 mg 2,001 mg, Oral, WITH MEALS, First dose on Sat08/30/23 at 0800, Until Discontinued 0800 (Not Given - Provider: Gale Ellis RN - Reason: Patient on Leave of Absence)1434 (Given - Provider: Gale Ellis RN)1809 (Given - Provider: Gale Ellis RN) 0817 (Given - Provider: Juan Torres RN)1209 (Given - Provider: Juan Torres RN)1733 (Given - Provider: Juan Torres RN) 0800 (Not Given - Provider: Juan Torres RN - Reason: Parameter(s) Not Met)1057 (Given - Provider: Juan Torres RN)1700 (Due) carBAMazepine ER (Carbatrol) cap 200 mg 200 mg, Oral, Q12H, First dose on Sat08/30/23 at 0900, Until Discontinued 0900 (Not Given - Provider: Gale Ellis RN - Reason: Other-Notify Provider - Comment: hd)2232 (Given - Provider: María Rodriguez RN) 0817 (Given - Provider: Juan Torres RN)2105 (Given - Provider: María Rodriguez RN) 1057 (Given - Provider: Juan Torres RN) Carvedilol (Coreg) tab 6.25 mg 6.25 mg, Oral, BID (.AM/PM), First dose on Sat08/30/23 at 0900, Until Discontinued, Hold for HR less than 60 or SBP below 100 and notify service if dose is held MUST BE GIVEN WITH MEAL 1429 (Given - Provider: Gale Ellis RN)2042 (Given - Provider: María Rodriguez RN) 0817 (Given - Provider: Juan Torres RN)2104 (Given - Provider: María Rodriguez RN) 1057 (Given - Provider: Juan Torres RN) cloNIDine (Catapres) tab 200 mcg 200 mcg, Oral, Daily(AM), First dose on Sat09/01/23 at 0900, Until Discontinued, Hold for SBP below 100 and notify service if dose is held 1056 (Given - Provider: Juan Torres RN) fluticasone furoate-vilanterol (BREO ellipta) 200-25 MCG/ACT inhaler 1 Puff 1 Puff, Inhalation, [id number], First dose on Sat08/30/23 at 0900, Until Discontinued, NURSING TO FOLLOW PATIENT WITH MDI/DPI ADMINISTRATION 0900 (OR/Procedure - Provider: Radha Parekh, CONTRACT LOADER) 0816 (Not Given - Provider: Juan Torres RN - Reason: Refused-Notify Provider) 0900 (Not Given - Provider: Juan Torres RN - Reason: Refused-Notify Provider) hEParin 1000 UNIT/ML inj (dialysis orders only) (COMPLETED) Intravenous, ONCE, On Sat08/30/23 at 0445, For 1 dose, Bolus: 1000 units To be given ONLY on dialysis only. Enter Date of Dialysis Rx:: 08/30/2022 0714 (Given - Provider: Marlen Giles RN) hEParin 1000 UNIT/ML inj (dialysis orders only) (COMPLETED) Intravenous, ONCE, On Sat08/30/23 at 0445, For 1 dose, Maintenance: Drip: 500 Units/ Hr. STOP heparin last hour of dialysis Stop 1 hour before dialysis end in AVF/AVG. Continue through dialysis in CVC. The total delivered dose is approximately 2,500 to 5,000 units, based on weight and treatment duration assumptions. 0714 (Given - Provider: Marlen Giles RN) hEParin 1000 UNIT/ML inj (dialysis orders only) Intravenous, ON DIALYSIS, Starting on Sat09/01/23 at 0619, Until Sat09/01/23 at 2235, For 7 days, Bolus: 1000 units To be given ONLY on dialysis only. Enter Date of Dialysis Rx:: 09/01/2023 0600 (Given - Provider: Marlen Giles RN) hEParin 1000 UNIT/ML inj (dialysis orders only) Intravenous, ON DIALYSIS, Starting on Sat09/01/23 at 0620, Until Sat09/01/23 at 2235, For 7 days, Maintenance: Drip: 500 Units/ Hr. STOP heparin last hour of dialysis Stop 1 hour before dialysis end in AVF/AVG. Continue through dialysis in CVC. The total delivered dose is approximately 2,500 to 5,000 units, based on weight and treatment duration assumptions. 0649 (Given - Provider: Marlen Giles RN) hEParin inj 5,000 Units 5,000 Units, Subcutaneous, Q8H, First dose on 08/31/23 at 0600, Until Discontinued 0541 (Given - Provider: María Rodriguez RN)1335 (Given - Provider: Juan Torres RN)2105 (Given - Provider: María Rodriguez RN) 0504 (Given - Provider: María Rodriguez RN)1400 (Not Given - Provider: Juan Torres RN - Reason: Refused-Notify Provider) hydrALAZINE (Apresoline) inj 10 mg 10 mg, Intravenous, ONCE, On 08/31/23 at 2345, For 1 dose 2321 (Not Given - Provider: María Rodriguez RN - Reason: Other- Please add reason in Comments - Comment: No PIV access at this time.) hydrALAZINE (Apresoline) tab 100 mg 100 mg, Oral, TID(AM/NOON/HS), First dose (after last modification) on 08/31/23 at 2200, Until Discontinued, Hold for SBP below 100 and notify service if dose is held 2104 (Given - Provider: María Rodriguez RN) 0504 (Given - Provider: María Rodriguez RN)1227 (Given - Provider: Juan Torres RN) hydrALAZINE (Apresoline) tab 50 mg (CANCELED) 50 mg, Oral, TID(AM/NOON/HS), First dose on 08/31/23 at 1200, Until Discontinued, Hold for SBP below 100 and notify service if dose is held 1209 (Given - Provider: Juan Torres RN) insulin aspart (NovoLOG) inj Subcutaneous, W/MEALS AND HS, First dose on Sat08/30/23 at 0800, Until Discontinued, LOW DOSE (Elderly insulin sensitive patient): Sliding Scale Correctional insulin may be given if the patient is NPO. Dose based on standard build from Insulin Calculator. Do not modify insulin doses in administration instructions! , Glucose less than 70 instructions: Obtain STAT lab blood glucose and call covering provider., Glucose 80-150 (units): 0, Glucose 151-200 (units): 1, Glucose 201-250 (units): 2, Glucose 251-300 (units): 3, Glucose greater than 300 (units): 4, Glucose greater than 300 instructions: Give suggested insulin dose and call covering provider. 0800 (Not Given - Provider: Gale Ellis RN - Reason: Patient on Leave of Absence)1200 (Not Given - Provider: Gale Ellis RN - Reason: Parameter(s) Not Met)1700 (Not Given - Provider: Gale Ellis RN - Reason: Parameter(s) Not Met)2200 (Not Given - Provider: María Rodriguez RN - Reason: Parameter(s) Not Met) 0800 (Not Given - Provider: Juan Torres RN - Reason: Parameter(s) Not Met)1200 (Not Given - Provider: Juan Torres RN - Reason: Parameter(s) Not Met)1733 (Given - Provider: Juan Torres RN)2200 (Not Given - Provider: María Rodriguez RN - Reason: Parameter(s) Not Met) 0800 (Not Given - Provider: Juan Torres RN - Reason: Parameter(s) Not Met)1200 (Not Given - Provider: Juan Torres RN - Reason: Parameter(s) Not Met)1700 (Due) omeprazole (PriLOSEC) cap 20 mg 20 mg, Oral, Daily(AM), First dose on Sat08/30/23 at 0900, Until Discontinued, This med should NOT be Crushed or Chewed 0900 (Not Given - Provider: Gale Ellis RN - Reason: Other-Notify Provider - Comment: hd) 0817 (Given - Provider: Juan Torres RN) 1057 (Given - Provider: Juan Torres RN) oxyCODONE (Oxy IR) tab 5 mg (COMPLETED) 5 mg, Oral, ONCE, On Sat08/30/23 at 2100, For 1 dose 2 (Given - Provider: María Rodriguez RN) oxyCODONE-acetaminophen 5-325 mg per tab (Percocet) 1 Tablet (COMPLETED) 1 Tablet, Oral, ONCE, On Sat08/31/23 at 2215, For 1 dose, Maximum of 4 grams (4000 mg) of acetaminophen per day 2151 (Given - Provider: María Rodriguez RN) sertraline (Zoloft) tab 100 mg 100 mg, Oral, Daily(AM), First dose on Sat08/30/23 at 0900, Until Discontinued 0900 (Not Given - Provider: Gale Ellis RN - Reason: Other- Please add reason in Comments - Comment: hd) 0817 (Given - Provider: Juan Torres RN) 1057 (Given - Provider: Juan Torres RN) Sodium Zirconium Cyclosilicate (Lokelma) oral powder PACK 10 g (COMPLETED) 10 g, Oral, TID(AM/NOON/HS), First dose on 08/31/23 at 0915, Last dose on 09/01/23 at 0600, For 3 doses, Empty entire contents of the packet(s) into a glass with 45 mL of water. Stir well and drink immediately; if powder remains in the glass, add water, stir and drink immediately; repeat until no powder remains. Administer other oral medications at least 2 hours before or 2 hours after dose. Hold dose and notify provider if K is less than 3.5 mmol/L 1015 (Given - Provider: Juan Torres RN)2105 (Given - Provider: María Rodriguez RN) 050 (Given - Provider: María Rodriguez RN) traZODone (Desyrel) tab 200 mg 200 mg, Oral, HS, First dose on Sat08/30/23 at 2200, Until Discontinued 2041 (Given - Provider: María Rodriguez RN) 2103 (Given - Provider: María Rodriguez RN) PRN Medication Order 08/30/2023 08/31/2023 09/01/2023 Acetaminophen (Tylenol) tab 650 mg 650 mg, Oral, Q6H PRN Pain, Mild, Fever >38C(100.5F), Starting on Sat08/30/23 at 0325, Until 09/01/23 at 2235, Maximum of 4 grams (4000 mg) per day. 180 (Given - Provider: Gale Ellis RN) 192 (Given - Provider: María Rodriguez RN) 1226 (Given - Provider: Juan Torres RN) Albuterol Sulfate (Proventil) (2.5 MG/3ML) 0.083% inhalation solution 2.5 mg 2.5 mg, Nebulizer, Q4H PRN Dyspnea, Starting on Sat08/31/23 at 0515, Until Sat09/01/23 at 5 dextrose 50 % inj 25 mL 25 mL, IV Push, PRN Hypoglycemia, Other, For blood glucose 54 - 69 mg/dL or 70 - 100 mg/dL with symptoms AND patient is unresponsive, NPO, OR unable to swallow, Starting on Sat08/30/23 at 0323, Until Sat09/01/23 at 2235, Administer IV. Recheck blood glucose after 15 minutes. Notify provider. dextrose 50 % inj 50 mL 50 mL, IV Push, PRN Hypoglycemia, Other, For blood glucose below 54 mg/dL AND patient unresponsive, NPO, OR unable to swallow, Starting on Sat08/30/23 at 0323, Until Sat09/01/23 at 5, Administer IV. Recheck blood glucose in 15 minutes. Notify provider. glucagon (Glucagen) inj 1 mg 1 mg, Intramuscular, PRN Hypoglycemia, Other, If patient is unresponsive, or NPO and has no IV access, Starting on Sat08/30/23 at 0323, Until Sat09/01/23 at 5, NPO and no IV access with either 1) blood glucose less than 100 mg/dL and symptomatic OR 2) blood glucose less than 70 mg/dL and asymptomatic Glucose (Glutose 15) 40 % gel 15 g of glucose 15 g of glucose, Oral, PRN Hypoglycemia (low sugar), Other, For blood glucose 54 - 69 mg/dL or 70 - 100 mg/dL with symptoms AND patient alert WITH difficulty chewing/swallowing, Starting on Sat08/30/23 at 0323, Until Sat09/01/23 at 2235, Administer gel. Recheck blood glucose after 15 minutes. Notify provider. 37.5 gram tube = 15 grams glucose = 1 each Glucose (Glutose 15) 40 % gel 30 g of glucose 30 g of glucose, Oral, PRN Hypoglycemia (low sugar), Other, For blood glucose below 54 mg/dL AND patient alert WITH difficulty chewing/swallowing, Starting on Sat08/30/23 at 0323, Until Sat09/01/23 at 5, Administer gel. Recheck blood glucose after 15 minutes. Notify provider. 37.5 gram tube = 15 grams glucose = 1 each glucose chew tab 16 g 16 g, Oral, PRN Hypoglycemia, Other, For blood glucose 54 - 69 mg/dL or 70 - 100 mg/dL with symptoms and patient alert without difficulty chewing/swallowing., Starting on Sat08/30/23 at 0323, Until 09/01/23 at 2235 guaiFENesin-dm (Robitussin DM) oral syrup 10 mL 10 mL, Oral, Q4H PRN Cough, Starting on Sat08/30/23 at 0325, Until 09/01/23 at 2235 HYDROmorphone (Dilaudid) tab 2 mg 2 mg, Oral, Q8H PRN Pain, Breakthrough, Starting on Sat09/01/23 at 1406, Until 09/01/23 at 2235 1412 (Given - Provider: Juan Torres, RN) hydrOXYzine HCl tab 25 mg 25 mg, Oral, Q6H PRN Anxiety, Starting on Sat08/30/23 at 0257, Until 09/01/23 at 2235 0715 (Given - Provider: Marlen Giles, RN) 0619 (Given - Provider: María Rodriguez, RN) LORAzepam (Ativan) tab 0.5 mg 0.5 mg, Oral, DAILY PRN Other, Prior to HD, Starting on 08/31/23 at 2142, Until 09/01/23 at 2235 0619 (Given - Provider: María Rodriguez, RN) melatonin tab 3 mg 3 mg, Oral, HS PRN Insomnia, Starting on Sat08/30/23 at 0325, Until 09/01/23 at 2235 ondansetron (Zofran) inj 4 mg 4 mg, IV Push, Q6H PRN Nausea, Starting on Sat08/30/23 at 0325, Until 09/01/23 at 2235 sodium chloride 0.9 % flush/inj 3 mL 3 mL, IV Push, PRN Other, Line Patency, Starting on Sat08/30/23 at 0322, Until 09/01/23 at 2235, Do not flush if lock, PICC, or central line not in place, IV infusing or unable to flush traMADol (Ultram) tab 50 mg 50 mg, Oral, BID PRN Pain, Severe, Starting on 09/01/23 at 0751, Until 09/01/23 at 2235 0811 (Given - Provider: Marlen Giles RN) documented in this encounter Advance Directives Latest [...] the patient have Health Care Power of Flanging Operator? No Full Code 09/29/2020 10:35 AM 10/01/2020 [...] the patient have Health Care Power of Flanging Operator? 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
--- OUTSIDE RECORDS SUMMARY | 2023-09-03 08:34 | External Medical Summary ---
Author Name Unknown Address Unknown Organization : Laboratory Report Ordering Provider Test Date Status PATRICIA BETHEA 08/31/2023 21:21:40 Final Observation Date Value Abnormality Reference (Units ) Status Glucose Point of Care 08/31/2023 21:21:40 130 Above high normal 70-120 (mg/dL) Final Performing Location
--- OUTSIDE RECORDS SUMMARY | 2023-09-03 08:34 | External Medical Summary ---
Author Name Unknown Address Unknown Organization [id number]:[facility] [place] [facility] [address] [facility] [facility] [place] [address] Laboratory Report Ordering Provider Test Date Status PATRICIA BETHEA 09/01/2023 04:46:00 Final Observation Date Value Abnormality Reference (Units ) Status BUN 09/01/2023 04:46:00 58 Above high normal 6-20 (mg/dL) Final Creatinine 09/01/2023 04:46:00 10.2 Above high normal 0.5-1.0 (mg/dL) Final Glomerular filtration rate/1.73 sq M.predicted [Volume Rate/Area] in Serum, Plasma or Blood by Creatinine-based formula (CKD-EPI) 09/01/2023 04:46:00 5 Below low normal >=60 (mL/min) Final eGFR is calculated based on the CKD-EPI 2020 equation SODIUM 09/01/2023 04:46:00 135 135-146 (m mol/L) Final Potassium 09/01/2023 04:46:00 4.3 3.5-5.1 (m mol/L) Final Cl 09/01/2023 04:46:00 93 Below low normal 98- 107 (mmol/L) Final CO2 09/01/2023 04:46:00 23 22-32 (mmo l/L) Final Anion gap 09/01/2023 04:46:00 19 Above high normal 7- 15 (mmol/L) Final Glucose 09/01/2023 04:46:00 126 Above high normal 70 -120 (mg/dL) Final Calcium 09/01/2023 04:46:00 9.5 8.4-10.2 ( mg/dL) Final Albumin 09/01/2023 04:46:00 3.7 Below low normal 3.8 -5.0 (g/dL) Final Phosphate 09/01/2023 04:46:00 7.3 Above high normal 2. 5-4.8 (mg/dL) Final Performing Location [facility] [place] [address] [facility] [address]
--- OUTSIDE RECORDS SUMMARY | 2023-09-03 08:34 | External Medical Summary | Summary of Care ---
Author Name Unknown Organization [facility] Address [address] [place] [address] Phone [phone] Care Team Providers Care Textile Finisher Name Role Phone Adolph Aldridge MD Primary Care Provider [phone] Reason for Visit * Reason Onset Date Comments Referral 09/02/2023 Epic 178 referra l Encounter Details Date Type Department Care Team ([facility] Contact Info) Description 09/02/2023 Telephone [facility] [address] [place] [address] Taylor Mackey, SHANTE Referral (Epic 178 referral ) Allergies Active Allergy Reactions Criticality Noted Date [...] Tablet 0 03/14/2022 Active OneTouch Delica Plus [id number] s:DM type 2 with diabetic peripheral neuropathy (HCC),Type 2 diabetes mellitus with hemoglobin A1c goal of less than 7.0% ([facility]) use 1 LANCET to TEST BLOOD SUGAR [...] of 150 mg daily, Reported on 05/28/2023 OneTouch Verio In Vitro Strip (Glucose Blood)Indications:D M type [...] months. 1 mL 3 02/27/2023 Active PEG 3770-VLd-EuUwj-NaCl -NaSulf 236 GM Oral Solution Reconstituted Please [...] Protocol Major depressive disorder with single episode 06/27/2003/20/2023 Arteriovenous fistula stenosis 06/15/2021 04/02/2023 Patellofemoral disorders, [...] and PP sugars <120. Report levels to [facility] department weekly. 10. Advised patient that Glyburide, Metformin, and insulin may be safely used during for the control of blood sugar levels. Alexandra will begin her insulin therapy today. 11. Dietary consult to be done to instruct patient on appropriate nutrition and diet to aid in control of blood sugars. 12. Recommend urine culture each trimester. 13. Recommend [facility] ultrasound for limited anatomy at 12-14 weeks, for full anatomy at 18-20 weeks, and for echocardiography at 22-24 weeks. 14. Start testing with twice weekly NST and weekly MATTHEW beginning at 32 weeks or earlier if any evidence of uncontrolled blood sugars, renal abnormalities, or HTN. 15. Recommend [facility] growth ultrasound every 4 weeks after 24 [...] if early screen is normal. 5. Recommend [facility] ultrasound for anatomy screen at 20 [...] --- TENA after tx. Obtained 06/07/2011 Marva RN, contaminated patient to repepat OB [place] 03/19/2011 01/29/20 17 Overview: 03/19/2011 Needs enrolled in [facility] once MA active. Marva RN- Enrolled 03/27/2011 [...] the money to buy more. Never true 09/02/19 24 Within the past 12 months, t he food you bought just didn't last and you didn't have money to get more. Never true 09/02/2023 Sex and Gender Information Value Date Recorded [...] encounter Miscellaneous Notes * Telephone Encounter - Winter Diaz OSA - 09/02/2023 1:43 PM EST Referring Provider: Taylor Mackey LPN [facility] Reason for Referral: Major depressive disorder, recurrent, in partial remission (HCC) [F33.41] - Primary Bipolar disorder, in partial remission, most recent episode depressed Recently admitted for emergent dialysis on 08/30/23. Discharged to home on 09/01/23. Does not qualify for [facility], referred to [facility]. Outcome of referral: [phone] (Home Phone) Called [phone] --could not leave a message as the mailbox was full. Called [phone] (Home Phone) --could not leave a message as the mailbox was also full. Routine referral. Next outreach setfor 09/05/23. Member can be directed to [facility] team at [phone] M-F 8am to 5pm documented in this encounter Plan of Treatment Upcoming Encounters Date Type Department Care Team (Late st Contact Info) Description 09/11/2023 11:00 AM EST Office Visit [facility] [place] [address] [facility] [address] [phone] Adolph Aldridge MD [address] [place] [address] Health Maintenance Due Date Last Done Comments DISCUSS TOBACCO CESSATION (REFER TO SMARTSET #1066) 1985 HPV/Co-Test 11/14/2015 COVID-19 Vaccine (3 - [...] 09/25/2013, Additional history exists HbA1c 02/28/2024 08/30/2023, 1010/2022, 07/26/2022, Additional history exists Depression Screening 07/25/2024 [...] this encounter Medical Devices Implanted Type Area Pantry Goods Worker Device Identifier Shelf Expiration Date Model / Serial / Lot Stent Protege Gps [id number] - [id number] Implanted:Qty : 1 on 09/29/2020 by Carmelo Ramos MD at [place] [facility] [place] Left: Chest [employer] : VASCULAR [id number] 09/20/2022 [id number] / / [id number] Stent Viab [id number] - [id number] Implanted:Qty : 1 on 04/16/2023 by Carmelo Ramos MD at [place] [facility] Right: Subclavian [employer] [id number] 01/26/2026 [id number] / [id number] / [id number] documented as of this encounter Advance Directives Latest Code Status [...] the patient have Health Care Power of Ambulatory Service Representative? No Full Code 09/29/2020 10:35 AM 10/01/2020 [...] the patient have Health Care Power of Ambulatory Service Representative? No Care Teams Textile Finisher Relationship Specialty Start Date End Date Adolph Aldridge MD [address] [place] [address] PCP - General Family Medicine 10/21/18 documented as of this encounter
--- OUTSIDE RECORDS SUMMARY | 2023-09-03 08:35 | External Medical Summary ---
Author Name Unknown Address Unknown Organization K01:[address]ATORY [address] [address] Laboratory Report Ordering Provider Test Date Status PATRICIA BETHEA 08/31/2023 07:03:00 Final Observation Date Value Abnormality Reference (Units ) Status BUN 08/31/2023 07:03:00 51 Above high normal 6-20 (mg/dL) Final Creatinine 08/31/2023 07:03:00 9.3 Above high normal 0.5-1.0 (mg/dL) Final Glomerular filtration rate/1.73 sq M.predicted [Volume Rate/Area] in Serum, Plasma or Blood by Creatinine-based formula (CKD-EPI) 08/31/2023 07:03:00 5 Below low normal >=60 (mL/min) Final eGFR is calculated based on the CKD-EPI 2020 equation SODIUM 08/31/2023 07:03:00 136 135-146 (m mol/L) Final Potassium 08/31/2023 07:03:00 5.7 Above high normal 3. 5-5.1 (mmol/L) Final Cl 08/31/2023 07:03:00 95 Below low normal 98- 107 (mmol/L) Final CO2 08/31/2023 07:03:00 22 22-32 (mmo l/L) Final Anion gap 08/31/2023 07:03:00 19 Above high normal 7- 15 (mmol/L) Final Glucose 08/31/2023 07:03:00 81 70-120 (mg /dL) Final Calcium 08/31/2023 07:03:00 10.1 8.4-10.2 ( mg/dL) Final Albumin 08/31/2023 07:03:00 3.7 Below low normal 3.8 -5.0 (g/dL) Final Phosphate 08/31/2023 07:03:00 8.1 Above high normal 2. 5-4.8 (mg/dL) Final Performing Location LABORATORY [facility] [place] - [address] [facility] [address]
--- OUTSIDE RECORDS SUMMARY | 2023-09-03 08:35 | External Medical Summary ---
Author Name Unknown Address Unknown Organization K01:LAB[facility]ATORY [facility] [place] [address] [place] [address] Laboratory Report Ordering Provider Test Date Status NEIL BARONETAR 08/30/2023 04:28:00 Final Observation Date Value Abnormality Reference (Units ) Status ABO 08/30/2023 04:28:00 A Final RH 08/30/2023 04:28:00 Positive Final RED BLOOD CELL ANTIBODY SCREEN 08/30/2023 04:28:00 Negative Final SPECIMEN EXPIRATION DATE 08/30/2023 04:28:00 09/02/2023 23:59 Final Performing Location LABORATORY [facility] - [address] [place] [address]
--- OUTSIDE RECORDS SUMMARY | 2023-09-03 08:35 | External Medical Summary ---
Author Name Unknown Address Unknown Organization : Laboratory Report Ordering Provider Test Date Status DINORA BARONE 08/30/2023 03:08:40 Final Observation Date Value Abnormality Reference (Units ) Status Glucose Point of Care 08/30/2023 03:08:40 102 70-120 (mg/dL) Final Performing Location
--- OUTSIDE RECORDS SUMMARY | 2023-09-03 08:35 | External Medical Summary ---
Author Name Unknown Address Unknown Organization : Laboratory Report Ordering Provider Test Date Status PATRICIA BETHEA 08/31/2023 12:46:05 Final Observation Date Value Abnormality Reference (Units ) Status Glucose Point of Care 08/31/2023 12:46:05 113 70-120 (mg/dL) Final Performing Location
--- OUTSIDE RECORDS SUMMARY | 2023-09-03 08:35 | External Medical Summary | Summary of Care ---
Author Name Unknown Organization [facility] Address [address] [place] [address] Phone [phone] Care Team Providers Care Inspector Integrated Circuits Name Role Phone Adolph Aldridge MD Primary Care Provider [phone] Encounter Details Date Type Department Care Team (Latest Contact Info) Description 08/29/2023 8:25 PM EST - 08/29/2023 11:59 PM EST Hospital Encounter Radiology Film File [address] [place] [address] Arrived Discharge Disposition: Home - Self Care Allergies Active Allergy Reactions Criticality Noted Date Comments Amoxicillin Low 01/27/2021 Other reaction(s): VOMITING Cefaclor Rash Low 11/23/2011 Cephalosporins Rash Low 05/16/1999 documented as of this encounter (statuses as of 08/31/2023) Medications Medication Sig Dispensed Refills Start Date End Date Status amLODIPine (NORVASC) 10 MG Tablet Take 1 Tablet by mouth at bedtime. 0 02/24/2020 Suspended Calcium Acetate (Phos Binder) 667 MG Oral Capsule (Phoslo) Take 3 Caps by mouth three times a day with meals. 270 Cap 3 11/03/2020 Suspended Additional Information Renal Vitamin 0.8 MG Oral Tablet 1 Tab. 0 08/10/2020 Suspended Compressor NebulizerIndicatio ns:Mild intermittent asthma with exacerbation Inhale via nebulizer. Use as directed.Dx J45.901 (asthma exacerbation) 1 Each 1 03/10/2021 Suspended Additional Information Albuterol Sulfate (2.5 MG/3ML) 0.083% Inhalation Nebulization Solution (Proventil)Indicat ions:Mild intermittent asthma with exacerbation Inhale 1 Vial via nebulizer every 4 hours as needed for Wheezing. 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 39 g 3 09/21/2021 Suspended Additional Information Ondansetron HCl 4 MG Oral TabletIndications: Nausea without vomiting Take by mouth 1 Tablet every 6 hours as needed for Nausea. 24 Tablet 0 03/14/2022 Suspended Additional Information OneTouch Delica Plus [id number] ns:DM type 2 with diabetic peripheral neuropathy (HCC),Type 2 diabetes mellitus with hemoglobin A1c goal of less than 7.0% ([facility]) use 1 LANCET to TEST BLOOD SUGAR four times a day. DX E11.9 400 Each 3 03/23/2022 Suspended Additional Information Albuterol Sulfate HFA 108 (90 Base) MCG/ACT Inhalation Aerosol SolutionIndication s:Chronic cough,Upper respiratory tract infection, unspecified type Inhale by mouth 2 Puffs every 4 hours as needed for Wheezing. 8 g 6 03/29/2022 Suspended Additional Information Sertraline HCl 100 MG Oral Tablet (Zoloft)Indication s:Bipolar disorder, in partial remission, most recent episode depressed (HCC) Take by mouth 1.5 Tablets in the morning. 135 Tablet 3 05/22/2022 Suspended Additional Information Patient taking differently: 100 mgOral Daily(AM),Take with 50 mg for a total of 150 mg daily, Reported on 05/28/2023 OneToZoobean Verio In Vitro Strip (Glucose Blood)Indications: DM type 1 with diabetic peripheral neuropathy (HCC) Use up to 4 times a day E11.9 100 Strip 11 05/21/2022 Suspended Additional Information Fluticasone Propionate 50 MCG/ACT Nasal SuspensionIndicati ons:Chronic rhinitis Administer into each nostril 2 Sprays in the morning. 16 g 2 05/23/2022 Suspended Additional Information Gabapentin 400 MG Oral Capsule (Neurontin) Take 1 Capsule by mouth in the morning and 1 Capsule before bedtime. 180 Capsule 3 08/29/2022 Suspended Additional Information Dicyclomine HCl 10 MG Oral Capsule (Bentyl) take 1 capsule by mouth four times a day if needed for cramping (FOR ABDOMINAL PAIN) 60 Capsule 3 08/29/2022 Suspended Additional Information Patient not taking.Reported on 04/16/2023 traZODone HCl 100 MG Oral Tablet (Desyrel)Indicatio ns:Insomnia due to other mental disorder Take 2 Tablets by mouth at bedtime. 180 Tablet 3 08/29/2022 Suspended Additional Information Omeprazole 20 MG Oral Capsule Delayed Release (PriLOSEC)Indicati ons:Gastroesophage al reflux disease, unspecified whether esophagitis present Take 1 Capsule by mouth in the morning. 1 hour before the first meal of the day. 90 Capsule 3 08/29/2022 Suspended Additional Information Varenicline Tartrate 0.5 MG X 11 & 1 MG X 42 Oral Tablet Therapy Pack Take as directed on box 1 Each 3 11/22/2022 Suspended Additional Information Carvedilol 12.5 MG Oral Tablet (Coreg) Take 0.5 Tablets by mouth in the morning and 0.5 Tablets before bedtime. 0 Suspended hydrOXYzine HCl 25 MG Oral TabletIndications: Depression with anxiety Take 1 Tablet by mouth every 6 hours as needed for Anxiety. 60 Tablet 2 01/23/2023 Suspended Additional Information LORazepam 0.5 MG Oral Tablet (Ativan)Indication s:Panic attack TAKE 1 TABLET BY MOUTH EVERY 8 HOURS NEEDED FOR PANIC ATTACKS AND BEFORE DIALYSIS Strength: 0.5 mg 20 Tablet 0 01/23/2023 Suspended Additional Information carBAMazepine ER 200 MG Oral Tablet Extended Release 12 Hour (Tegretol-Xr) Take 1 Tablet by mouth 2 times a day in the morning and at bedtime. 0 Suspended medroxyPROGESTERon e Acetate 150 MG/ML Intramuscular Suspension (Depo-Provera) Inject 150 mg into a large muscle every 3 months. 1 mL 3 02/27/2023 Suspended Additional Information PEG 1353-JAd-XyHvh-NaC l-NaSulf 236 GM Oral Solution Reconstituted Please take according to Colonoscopy prep instructions. 4000 mL 0 03/19/2023 Suspended Additional Information Benzonatate 100 MG Oral CapsuleIndications :Chronic cough Take 2 Capsules by mouth 3 times a day as needed for Cough. 30 Capsule 1 03/20/2023 Suspended Additional Information Sertraline HCl 50 MG Oral Tablet (Zoloft) TAKE 1 TABLET BY MOUTH ONCE DAILY ALONG WITH THE 100MG FOR A TOTAL OF 150MG DAILY 0 02/28/2023 Suspended Cinacalcet HCl 60 MG Oral Tablet (Sensipar) Take 1 Tablet by mouth in the morning. 0 06/21/2023 Suspended Cinacalcet HCl 90 MG Oral Tablet (Sensipar) Take 1 tablet by mouth daily with dinner 30 Tablet 11 08/16/2023 Suspended Additional Information documented as of this encounter (statuses as of 08/31/2023) Active Problems Problem Noted Date Diagnosed Date Major depressive disorder, recurrent, in partial remission [...] as of this encounter (statuses as of 08/31/2023) Resolved Problems Problem Noted Date Diagnosed Date Resolved Date Food insecurity 02/04/2023 08/08/2023 Overview: Per [facility] Protocol Major depressive disorder with [...] and PP sugars <120. Report levels to [facility] department weekly. 10. Advised patient that Glyburide, Metformin, and insulin may be safely used during for the control of blood sugar levels. Alexandra will begin her insulin therapy today. 11. Dietary consult to be done to instruct patient on appropriate nutrition and diet to aid in control of blood sugars. 12. Recommend urine culture each trimester. 13. Recommend [facility] ultrasound for limited anatomy at [...] if early screen is normal. 5. Recommend [facility] ultrasound for anatomy screen at 20 weeks [...] 01/29/20 17 Overview: 03/19/2011 Needs enrolled in [facility] once MA active. Marva RN- Enrolled 03/27/2011 [...] Repeat at term. Requests PPTL. scheduled for 312 tubal consent signed 08/31/2011 Marva CURRIE Severe [...] as of this encounter (statuses as of 08/31/2023) Immunizations Name Administration Dates Next Due COVID-19 [...] you have serious difficulty h earing? No 11/01/2020 Are you blind or do you have serious difficulty seeing, even when wearing glasses? No 11/01/2020 Do you have serious difficul ty walking or climbing stairs? (5 years old or older) No 11/01/2020 Do you have difficulty dress ing or bathing? (5 years old or older) No 11/01/2020 Because of a physical, menta l, or emotional condition, do you have difficulty doing errands alone such as visiting a doctor s office or shopping? (15 years old or older) No 11/02/19 Cognitive Status Response Date of Assessm ent Because of a physical, menta l, or emotional condition, do you have serious difficulty concentrating, remembering, or making decisions? (5 years old or older) No 11/01/2020 documented as of this encounter Plan of Treatment Health Maintenance Due Date Last Done Comments DISCUSS TOBACCO CESSATION (REFER TO SMARTSET #3292) 1985 HPV/Co-Test 11/14/2015 COVID-19 Vaccine (3 - Moderna risk series) 01/11/2021 12/14/2020, 11/16/2020 Diabetic Eye Exam 06/21/2021 06/21/2020, , 01/25/2014, Additional history exists DTaP,Tdap,and Td Vaccines (7 - Td or Tdap) 10/09/2021 10/09/2011, 08/12/2002, 07/25/1987, Additional history exists Diabetic Foot Exam 03/10/2022 03/10/2021, 0 03/10/2020, 11/08/2017, Additional history exists Cervical Cancer Screening 05/12/2023 Pap Smear 05/12/2023 05/12/2020, 0 04/2018, 09/25/2013, Additional history exists HbA1c 02/28/2024 08/30/2023, 100 10/2022, 07/26/2022, Additional history exists Depression Screening [...] this encounter Medical Devices Implanted Type Area Physical Medicine Specialist Device Identifier Shelf Expiration Date Model / Serial / Lot Stent Protege Gps [id number] - [id number] Implanted:Qty : 1 on 09/29/2020 by Carmelo Ramos MD [place] [facility] [place] Left: Chest [employer] : VASCULAR [id number] 09/20/2022 [id number] / / [id number] Stent Viab [id number] - [id number] Implanted:Qty : 1 on 04/16/2023 by Carmelo Ramos MD at [place] [facility] [place] Right: Subclavian [employer] [id number] 01/26/2026 [id number] / [id number] / [id number] documented as of this encounter Procedures Procedure Name Priority Date/Time Associated Diagnosis Comments RADIOLOGY EXAM - GENERAL RAD (IMAGES ONLY,NO REPORT) Routine 08/29/2023 8:25 PM EST documented in this encounter Results * RADIOLOGY EXAM - GENERAL RAD (IMAGES ONLY,NO REPORT) (08/29/2023 8:25 PM EST) 08/29/2023 8:23 PM EST Narrative Scheduling, Silent - 08/30/2023 8:42 AM EST This is an imaging study not interpreted or resulted by a [facility] or [facility] contracted radiologist. Adolph Aldridge MD RADIOLOGY (RAD GENER AL) documented in this encounter Advance Directives Latest Code Status on File Code Status Date Activated Date Inactivated Comments Full Code 08/30/2023 3:26 AM This order reflects the patients wishes and [...] the patient have Health Care Power of Cupola Tender? No Full Code 09/29/2020 10:35 AM 10/01/2020 [...] the patient have Health Care Power of Cupola Tender? No Care Teams Inspector Integrated Circuits Relationship Specialty Start Date End Date Adolph Aldridge MD [address] [place] [address] PCP - General Family Medicine 10/21/18 documented as of this encounter
--- OUTSIDE RECORDS SUMMARY | 2023-09-03 08:35 | External Medical Summary ---
Author Name Unknown Address Unknown Organization K01:LABORATORY [facility] [place] - [address] [facility] [address] Laboratory Report Ordering Provider Test Date Status PATRICIA BETHEA 08/30/2023 03:26:00 Final Observation Date Value Abnormality Reference (Units ) Status BUN 08/30/2023 03:26:00 104 Above high normal 6-20 (mg/dL) Final Creatinine 08/30/2023 03:26:00 15.1 Above high normal 0.5-1.0 (mg/dL) Final Glomerular filtration rate/1.73 sq M.predicted [Volume Rate/Area] in Serum, Plasma or Blood by Creatinine-based formula (CKD-EPI) 08/30/2023 03:26:00 3 Below low normal >=60 (mL/min) Final eGFR is calculated based on the CKD-EPI 2020 equation
eGFR is calculated based on the CKD-EPI 2020 equation SODIUM 08/30/2023 03:26:00 131 Below low normal 135 -146 (mmol/L) Final Potassium 08/30/2023 03:26:00 6.2 Above high normal 3. 5-5.1 (mmol/L) Final Cl 08/30/2023 03:26:00 81 Below low normal 98- 107 (mmol/L) Final CO2 08/30/2023 03:26:00 22 22-32 (mmo l/L) Final Anion gap 08/30/2023 03:26:00 28 Above high normal 7- 15 (mmol/L) Final Glucose 08/30/2023 03:26:00 106 70-120 (mg /dL) Final Calcium 08/30/2023 03:26:00 9.9 8.4-10.2 ( mg/dL) Final Albumin 08/30/2023 03:26:00 3.9 3.8-5.0 (g /dL) Final Phosphate 08/30/2023 03:26:00 11.0 Above high normal 2. 5-4.8 (mg/dL) Final Performing Location LABORATORY [facility] [place] - [address] [facility] [address]
--- OUTSIDE RECORDS SUMMARY | 2023-09-03 08:35 | External Medical Summary ---
Author Name Unknown Address Unknown Organization K01:[place] [facility] [place] [address] [place] [address] Laboratory Report Ordering Provider Test Date Status REGINALDODARRYLRAYSADINORA 08/30/2023 08:10:11 Final Warfarin Therapy
INR: 2 .0-3.0 conventional anticoagulation
INR: 2.5- 3.5 high intensity anticoagulation Observation Date Value Abnormality Reference (Units ) Status PT 08/30/2023 08:10:11 15.1 11.6-15.2 (seconds) Final INR 08/30/2023 08:10:11 1.2 0.8-1.2 Final Performing Location [place] [facility] [place] [address] [place] [address]
--- OUTSIDE RECORDS SUMMARY | 2023-09-03 08:35 | External Medical Summary ---
Author Name Unknown Address Unknown Organization K01:[place] [facility] [place] [facility] [address] [place] [address] Laboratory Report Ordering Provider Test Date Status DINORA BARONE 08/30/2023 03:26:00 Final Observation Date Value Abnormality Reference (Units ) Status BUN 08/30/2023 03:26:00 102 Above high normal 6-20 (mg/dL) Final Creatinine 08/30/2023 03:26:00 15.0 Above high normal 0.5-1.0 (mg/dL) Final Glomerular [...] 7- 15 (mmol/L) Final Glucose 08/30/2023 03:26:00 107 70-120 (mg /dL) Final Calcium 08/30/2023 03:26:00 9.9 8.4-10.2 ( mg/dL) Final Performing Location [place] [facility] [place] [address] [place] [address]
--- OUTSIDE RECORDS SUMMARY | 2023-09-03 08:35 | External Medical Summary ---
Author Name Unknown Address Unknown Organization K01:LABORATORY [facility] [place] - [address] [place] [address] Laboratory Report Ordering Provider Test Date Status DINORA BAROEN 08/30/2023 03:26:00 Final Observation Date Value Abnormality Reference (Units ) Status Albumin 08/30/2023 03:26:00 3.7 Below low normal 3.8-5.0 (g/dL) Final AST (Aspartate aminotransferase) 08/30/2023 03:26:00 38 Above high normal 10-35 (U/L) Final Alk Phos 08/30/2023 03:26:00 108 35-130 (U/L) Final ALT (Alanine aminotransferase) 08/30/2023 03:26:00 29 10-35 (U/L) Final Bilirubin, Total 08/30/2023 03:26:00 0.3 <=1.2 (mg/dL) Final Bilirubin, Direct 08/30/2023 03:26:00 <0.2 0.0-0.3 (mg/dL) Final Protein 08/30/2023 03:26:00 6.8 6.0-8.3 (g/dL) Final Performing Location LABORATORY [facility] [place] - [address] [place] [address]
--- OUTSIDE RECORDS SUMMARY | 2023-09-03 08:35 | External Medical Summary ---
Author Name Unknown Address Unknown Organization K01:[place]ATORY [facility] [place] - [facility] [address] [facility] [address] Laboratory Report Ordering Provider Test Date Status DINORA BARONE 08/30/2023 03:26:00 Final Observation Date Value Abnormality Reference (Units ) Status WBC, Total 08/30/2023 03:26:00 6.31 4.00-10.80 (K/uL) Final RBC 08/30/2023 03:26:00 3.68 3.85-5.15 (M/uL) Final Hemoglobin 08/30/2023 03:26:00 11.9 Below low normal 12.0-15.3 (g/dL) Final HCT 08/30/2023 03:26:00 39.1 36.0-45.2 (%) Final MCV 08/30/2023 03:26:00 106.3 81.5-97.5 (fL) Final MCH 08/30/2023 03:26:00 32.3 27.0-34.0 (pg) Final MCHC 08/30/2023 03:26:00 30.4 32.0-36.0 (g/dL) Final RDW 08/30/2023 03:26:00 14.4 11.5-15.5 (%) Final Platelets 08/30/2023 03:26:00 107 Below low normal 140-400 (K/uL) Final MPV 08/30/2023 03:26:00 10.7 6.6-11.1 (fL) Final Nucleated erythrocytes/100 leukocytes [Ratio] in Blood by Automated count 08/30/2023 03:26:00 0 <=0 (/100 WBCs) Final Performing Location LABORATORY [facility] [place] - [address] [place] [address]
--- OUTSIDE RECORDS SUMMARY | 2023-09-03 08:35 | External Medical Summary ---
Author Name Unknown Address Unknown Organization : Laboratory Report Ordering Provider Test Date Status PATRICIA BETHEA 08/31/2023 16:37:41 Final Observation Date Value Abnormality Reference (Units ) Status Glucose Point of Care 08/31/2023 16:37:41 151 Above high normal 70-120 (mg/dL) Final Performing Location
--- OUTSIDE RECORDS SUMMARY | 2023-09-03 08:35 | External Medical Summary ---
Author Name Unknown Address Unknown Organization : Laboratory Report Ordering Provider Test Date Status PATRICIA BETHEA 08/31/2023 08:00:01 Final Observation Date Value Abnormality Reference (Units ) Status Glucose Point of Care 08/31/2023 08:00:01 74 70-120 (mg/dL) Final Performing Location
--- OUTSIDE RECORDS SUMMARY | 2023-09-03 08:35 | External Medical Summary ---
Author Name Unknown Address Unknown Organization : Laboratory Report Ordering Provider Test Date Status PATRICIA BETHEA 08/30/2023 16:38:28 Final Observation Date Value Abnormality Reference (Units ) Status Glucose Point of Care 08/30/2023 16:38:28 83 70-120 (mg/dL) Final Performing Location
--- OUTSIDE RECORDS SUMMARY | 2023-09-03 08:35 | External Medical Summary ---
Author Name Unknown Address Unknown Organization K01:LABORATORY [facility] [place] - [address] [place] [address] Laboratory Report Ordering Provider Test Date Status NEIL BARONETAR 08/30/2023 03:26:00 Final Observation Date Value Abnormality Reference (Units ) Status Magnesium 08/30/2023 03:26:00 3.0 Above high normal 1. 5-2.6 (mg/dL) Final Performing Location LABORATORY C - [address] [place] [address]
--- OUTSIDE RECORDS SUMMARY | 2023-09-03 08:35 | External Medical Summary ---
Author Name Unknown Address Unknown Organization K01:LABORATORY [facility] [place] - [address] [facility] [address] Laboratory Report Ordering Provider Test Date Status DINORA BARONE 08/30/2023 03:26:00 Final Observation Date Value Abnormality Reference (Units ) Status Body temperature 08/30/2023 03:26:00 37.0 (C) Final pH of Venous blood 08/30/2023 03:26:00 7.301 Below low normal 7.320-7.430 (units) Final Carbon dioxide [Partial pressure] in Venous blood 08/30/2023 03:26:00 51.5 40.0-60.0 (mmHg) Final Oxygen [Partial pressure] in Venous blood 08/30/2023 03:26:00 32.3 25.0-50.0 (mmHg) Final Base excess, Capillary 08/30/2023 03:26:00 -1.6 -2.0-2.0 (mmol/L) Final Hemoglobin [Mass/volume] in Blood by Oximetry 08/30/2023 03:26:00 10.7 Below low normal 12.0-15.3 (g/dL) Final Oxyhemoglobin, Venous (FO2HB) 08/30/2023 03:26:00 47.3 40.0-85.0 (% total Hgb) Final Carboxyhemoglobin 08/30/2023 03:26:00 2.1 Above high normal <=1.5 (% total Hgb) Final Smokers: 0-9.0 % Methemoglobin 08/30/2023 03:26:00 0.8 <=1.5 (% total Hgb) Final Deoxyhemoglobin/Hemoglobin.t otal in Venous blood 08/30/2023 03:26:00 49.8 (% total Hgb) Coty l Oxygen content in Venous blood 08/30/2023 03:26:00 7.1 7.0-18.0 (%vol) Final Bicarbonate, Venous, POC (i-STAT) 08/30/2023 03:26:00 24.6 23.0-31.0 (mmol/L) [facility] Performing Location LABORATORY [facility] [place] - [address] [place] [address]
--- OUTSIDE RECORDS SUMMARY | 2023-09-03 08:35 | External Medical Summary ---
Author Name Unknown Address Unknown Organization : Laboratory Report Ordering Provider Test Date Status PATRICIA BETHEA 08/30/2023 21:00:27 Final Observation Date Value Abnormality Reference (Units ) Status Glucose Point of Care 08/30/2023 21:00:27 72 70-120 (mg/dL) Final Performing Location
--- OUTSIDE RECORDS SUMMARY | 2023-09-03 08:35 | External Medical Summary | Summary of Care ---
Author Name Unknown Organization [facility] Address [address] [place] [address] Phone [phone] Care Team Providers Care Director Of Market Analysis Name Role Phone Adolph Aldridge MD Primary Care Provider [phone] Encounter Details Date Type Department Care Team (Late st Contact Info) Description 08/29/2023 Orders Only [facility] [address] [place] [address] Adolph Aldridge MD [address] [place] [address] Allergies Active Allergy Reactions Criticality Noted Date Comments Amoxicillin Low 01/27/2021 Other reaction(s): VOMITING Cefaclor Rash Low 11/23/2011 Cephalosporins Rash Low 05/16/1999 documented as of this encounter (statuses as of 08/30/2023) Medications Medication Sig Dispensed Refills Start Date [...] 24 Tablet 0 03/14/2022 Suspended Additional Information MyTwinPlaceTouch Delica Plus [id number] ns:DM type 2 with diabetic peripheral neuropathy (HCC),Type 2 diabetes mellitus with hemoglobin A1c goal of less than 7.0% ([facility]) use 1 LANCET to TEST [...] in partial remission, most recent episode depressed ([facility]) Take by mouth 1.5 Tablets in the morning. 135 Tablet 3 05/22/2022 Suspended Additional Information Patient taking differently: 100 mgOral Daily(AM),Take with 50 mg for a total of 150 mg daily, Reported on 05/28/2023 Withlocalsio In Vitro Strip (Glucose Blood)Indications: DM type [...] mL 3 02/27/2023 Suspended Additional Information PEG 8140-[id number]-NaC l-NaSulf 236 GM Oral Solution Reconstituted Please [...] as of this encounter (statuses as of 08/30/2023) Active Problems Problem Noted Date Diagnosed Date Admission for dialysis 08/30/2023 Major depressive disorder, [...] as of this encounter (statuses as of 08/30/2023) Resolved Problems Problem Noted Date Diagnosed Date [...] and PP sugars <120. Report levels to M department weekly. 10. Advised patient that Glyburide, Metformin, and insulin may be safely used during for the control of blood sugar levels. Alexandra will begin her insulin therapy today. 11. Dietary consult to be done to instruct patient on appropriate nutrition and diet to aid in control of blood sugars. 12. Recommend urine culture each trimester. 13. Recommend MF ultrasound for limited anatomy at 12-14 weeks, [...] if early screen is normal. 5. Recommend [facility] ultrasound for anatomy screen at 20 [...] as of this encounter (statuses as of 08/30/2023) Immunizations Name Administration Dates Next Due COVID-19 [...] (15 years old or older) No 11/02/19 21 Cognitive Status Response Date of Assessm ent Because of a physical, menta l, or emotional condition, do you have serious difficulty concentrating, remembering, or making decisions? (5 years old or older) No 11/01/2020 documented as of this encounter Plan of Treatment Health Maintenance Due Date Last Done Comments DISCUSS TOBACCO CESSATION (REFER TO SMARTSET #0085) 1985 HPV/Co-Test 11/14/2015 COVID-19 Vaccine (3 - [...] this encounter Medical Devices Implanted Type Area Bulk Tank Driver Device Identifier Shelf Expiration Date Model / Serial / Lot Stent Protege Gps [id number] - [id number] Implanted:Qty : 1 on 09/29/2020 by Carmelo Ramos MD at OR [facility] Left: Chest [employer] : VASCULAR [id number] 09/20/2022 [id number] / / [id number] Stent Viab [id number] - [id number] Implanted:Qty : 1 on 04/16/2023 by Carmelo Ramos MD at OR [facility] Right: Subclavian [employer] [id number] 01/26/2026 [id number] / [id number] / [id number] documented as of this encounter Procedures Procedure [...] study not interpreted or resulted by a [facility] or [facility] contracted radiologist. Adolph Aldridge MD RADIOLOGY (RAD [...] the patient have Health Care Power of Manager Track? No Full Code 09/29/2020 10:35 AM 10/01/2020 [...] the patient have Health Care Power of Manager Track? No Care Teams Director Of Market Analysis Relationship Specialty Start Date End Date Adolph Aldridge MD [address] [place] [facility] [place] [address] PCP - General Family Medicine 10/21/18 documented as of this encounter
--- OUTSIDE RECORDS SUMMARY | 2023-09-03 08:35 | External Medical Summary ---
Author Name Unknown Address Unknown Organization K01:LABORATORY [facility] [place] - [facility] [address] [place] [address] Laboratory Report Ordering Provider Test Date Status PATRICIA BETHEA 08/30/2023 20:12:00 Final Observation Date Value Abnormality Reference (Units ) Status BUN 08/30/2023 20:12:00 43 Above high normal 6-20 (mg/dL) Final Creatinine 08/30/2023 20:12:00 8.2 Above high normal 0.5-1.0 (mg/dL) Final Glomerular filtration rate/1.73 sq M.predicted [Volume Rate/Area] in Serum, Plasma or Blood by Creatinine-based formula (CKD-EPI) 08/30/2023 20:12:00 6 Below low normal >=60 (mL/min) Final eGFR is calculated based on the CKD-EPI 2020 equation SODIUM 08/30/2023 20:12:00 135 135-146 (m mol/L) Final Potassium 08/30/2023 20:12:00 4.9 3.5-5.1 (m mol/L) Final Cl 08/30/2023 20:12:00 92 Below low normal 98- 107 (mmol/L) Final CO2 08/30/2023 20:12:00 24 22-32 (mmo l/L) Final Anion gap 08/30/2023 20:12:00 19 Above high normal 7- 15 (mmol/L) Final Glucose 08/30/2023 20:12:00 83 70-120 (mg /dL) Final Calcium 08/30/2023 20:12:00 10.4 Above high normal 8. 4-10.2 (mg/dL) Final Albumin 08/30/2023 20:12:00 3.8 3.8-5.0 (g /dL) Final Phosphate 08/30/2023 20:12:00 7.4 Above high normal 2. 5-4.8 (mg/dL) Final Performing Location LABORATORY [facility] - [address] [facility] [address]
--- OUTSIDE RECORDS SUMMARY | 2023-09-03 08:35 | External Medical Summary ---
Author Name Unknown Address Unknown Organization K01:LABORATORY [facility] [place] - [address] [facility] [address] Laboratory Report Ordering Provider Test Date Status DINORA BARONE 08/30/2023 08:10:11 Final Anticoagulation may affect t esting. Refer to [employer] [facility] Test Catalog for a list of effects. Observation Date Value Abnormality Reference (Units ) Status aPTT panel - Platelet poor plasma 08/30/2023 08:10:11 29 21-38 (seconds) Final Performing Location LABORATORY [facility] [place] - [address] [facility] [address]
--- OUTSIDE RECORDS SUMMARY | 2023-09-03 08:35 | External Medical Summary ---
Author Name Unknown Address Unknown Organization K01:[place] [facility] [place] [address] [facility] [address] Laboratory Report Ordering Provider Test Date Status DIONRA BARONE 08/30/2023 03:26:00 Final Observation Date Value Abnormality Reference (Units ) Status SYNC LEUKOCYTES IN BLOOD BY AUTOMATED COUNT 08/30/2023 03:26:00 6.31 4.00-10.80 (K/uL) Final Segs 08/30/2023 03:26:00 71.9 40.0-75.0 (%) Final Lymphs % 08/30/2023 03:26:00 17.4 Below low normal 18.0-42.0 (%) Final Monos 08/30/2023 03:26:00 8.1 1.0-11.0 (%) Final Eosinophils 08/30/2023 03:26:00 1.3 0.0-6.0 (%) Final Basos 08/30/2023 03:26:00 0.5 0.0-2.0 (%) Final Immature Granulocyte, Percent 08/30/2023 03:26:00 0.8 0.0-2.0 (%) Final Absolute Segs 08/30/2023 03:26:00 4.54 1.80-7.70 (K/uL) Final Lymphs, absolute 08/30/2023 03:26:00 1.10 1.00-4.80 (K/ul) Final Monos, Abs 08/30/2023 03:26:00 0.51 0.00-1.10 (K/uL) Final Eos, Abs 08/30/2023 03:26:00 0.08 0.00-0.70 (K/uL) Final Basos, Abs 08/30/2023 03:26:00 0.03 0.00-0.20 (K/uL) Final Immature Granulocytes, Number 08/30/2023 03:26:00 0.05 0.00-0.20 (K/uL) Final Performing Location [place] [facility] [place] [facility] [place] [address]
--- OUTSIDE RECORDS SUMMARY | 2023-09-03 08:35 | External Medical Summary ---
Author Name Unknown Address Unknown Organization K01:LABORATORY [facility] [place] - [address] [facility] [address] Laboratory Report Ordering Provider Test Date Status RONY FISHER 08/30/2023 04:12:00 Final Observation Date Value Abnormality Reference (Units ) Status HbA1C 08/30/2023 04:12:00 5.9 Above high normal 4. 0-5.6 (%) Final The use of HbA1c to monitor glycemic status is based on normal hemoglobin and HbA composition. This test should not be used in patients with abnormal hemoglobin that affects the half life of the red blood cell or the in vivo glycation rates. Glucose, estimated average 08/30/2023 04:12:00 123 <126 (mg/dL) Final Performing Location LABORATORY [facility] [place] - [address] [facility] [address]
--- OUTSIDE RECORDS SUMMARY | 2023-09-03 08:35 | External Medical Summary ---
Author Name Unknown Address Unknown Organization K01:LABORATORY [facility] [place] - [address] [place] [address] Laboratory Report Ordering Provider Test Date Status NEIL BARONETAR 08/30/2023 03:26:00 Final Observation Date Value Abnormality Reference (Units ) Status Phosphate 08/30/2023 03:26:00 10.9 Above high normal 2. 5-4.8 (mg/dL) Final Performing Location LABORATORY [facility] - [address] [place] [address]
--- OUTSIDE RECORDS SUMMARY | 2023-09-03 08:35 | External Medical Summary ---
Author Name Unknown Address Unknown Organization K01:LABORATORY [facility] - [address] [facility] [address] Laboratory Report Ordering Provider Test Date Status RONY FISHER 08/30/2023 04:51:36 Final Observation Date Value Abnormality Reference (Units ) Status Methicillin resistant Staphylococcus aureus (MRSA) DNA [Presence] in Nose by KSAEY with probe detection 08/30/2023 04:51:36 Negative Negative Final No Methicillin resistant Sta phylococcus aureus detected by PCR (amplified probe). Performing Location [facility] [address] [facility] [address]
== END 2023-08-30 07:45 ==
LOC: ED 19:12 → INTOOBSV 22:41 → EDINP 22:41

== ENCOUNTER 2023-11-14 16:26 | Inpatient (IN) ==
--- NOTE | 2023-11-14 16:44 | Emergency Department Note ---
Impression & Plan Shortness of breath, Acute uremia, Medical non-compliance, Dialysis patient, Anemia ED Provider Note NAME: NATHALIA DUTTON AGE: 38 SEX: F : 1985 ARRIVES VIA: Walk-In INFORMANT: [Patient][ems] ED PROVIDER(S): [[place] [facility] MD] CHIEF COMPLAINT: Short of breath HISTORY OF PRESENT ILLNESS: The patient is a 38-year-old female who states that she missed Saturday and Saturday dialysis. Her last dialysis was 6 days ago. She feels as if this has worsened her mood and depression. She feels anxious. She feels a bit short of breath. There is some occasional chest discomfort. There has been no fever or chills. No vomiting. The patient states that she missed dialysis because she missed her dial painter alarm. She presents by EMS for evaluation. On a second note, the patient has had a cough for 3 to 4 weeks, she just cannot seem to get rid of the cough after suffering a chest cold. Of note, the patient is not suicidal or homicidal. PMHx/PSHx/Social Hx: See Below PHYSICAL EXAM: GENERAL: Patient is in no acute distress. HEENT: No acute trauma, normocephalic atraumatic, mucous membranes moist, no nasal congestion. NECK: No stridor, no adenopathy, no meningismus, trachea is midline. LUNGS: There is a diminished breath sounds at both bases with some occasional crackles, no wheezing or respiratory distress HEART: 3/6 systolic murmur, regular rate and rhythm. ABDOMEN: Soft, nontender, no peritonitis. EXTREMITIES: No cyanosis, full range of motion of all the joints without pain or difficulty. NEUROLOGIC: Oriented x 3, no acute motor or sensory deficits, no focal weakness. SKIN: No jaundice, no diaphoresis. DIFFERENTIAL DIAGNOSIS: Fluid overload, CHF, electrolyte imbalance, dysrhythmia, anemia, pneumonia, bronchitis, among others. EMERGENCY DEPARTMENT PROCEDURES: MEDICAL DECISION MAKING: There is no leukocytosis. The patient is anemic however, the patient has a history of anemia. Her hemoglobin today is within her typical range. Platelet count was low, the patient has a history of thrombocytopenia. There was no coagulopathy. BUN and creatinine were quite high consistent with her missed dialysis. Phosphorus and magnesium were both high, consistent with her missed dialysis. No concerning liver enzyme elevation. The patient appeared to be in a euthyroid state. COVID test was negative. ECG showed a normal sinus rhythm with LVH, no acute ST elevation. Cardiac enzyme testing x 1 was slightly elevated. Patient has a history of a mild troponin elevation when looking back at previous testing. On exam, the patient was not toxic or febrile. She was not hypoxic. The patient is fluid overloaded. She has missed dialysis twice, she was last dialyzed 6 days ago. The patient will require a hospital stay and dialysis. I did speak with nephrology. The patient is not in need of emergent dialysis this evening and she can wait until tomorrow. The patient was informed of her findings, I spoke with case management, the on- call hospitalist was consulted. Prior/Outside records/notes reviewed: Today's EMS notes describing her presentation and transport to this hospital. ECG per my interpretation: Indication was shortness of breath. The ECG shows a normal sinus rhythm with a rate of 85. LVH is present. There is no acute ST elevation, no PVCs. An old lateral infarct was suggested. I see no peaked T waves. The QTc is 490 Continuous Cardiac Monitoring per my interpretation: An order was placed for continuous cardiac monitoring. The monitor shows a rate of 89 with normal sinus rhythm. Imaging/x-ray results per my interpretation: Chest x-ray does show cardiomegaly as well as some CHF. There was no pneumonia. Chronic Medical/Social conditions affecting care: Dialysis need. Care/Management discussed with: [facility] on-call. Case management, the on-call hospitalist. Level of care consideration(s): After review of the information above and other included data: --I believe the patient requires escalation of care to admission DISPOSITION: Admission with nephrology consult Past Med/Surg History Medical History Abnormal chest xray Elevated lactic acid level Transaminitis Pneumonia Metabolic encephalopathy Acute non-ST elevation myocardial infarction (NSTEMI) Pulmonary edema Acute hyperkalemia Acute alteration in mental status Renal failure (ARF), acute on chronic Encephalopathy Rectal bleeding reason for up coming colonoscopy Facial fracture Thrombocytopenia Depression with anxiety Anemia of chronic disease Status post fall last fall November 2022 > nasal fx / knee pain, no surgery for either injury > resolved per pt report GI bleed ESRD (end stage renal disease) on dialysis Symptomatic anemia Tobacco abuse DVT prophylaxis Fistula right arm (currently being used) and left arm Dialysis patient SATURDAY/SAT/SATUR[facility] AT [facility] GERD (gastroesophageal reflux disease) Bipolar disorder Restless leg syndrome Peripheral neuropathy Prolonged QT interval no cardio Asthma rare res inh use History of abnormal cervical Papanicolaou smear Elevated troponin Anemia due to end stage renal disease Acute electrocardiogram changes HTN (hypertension) DM2 (diabetes mellitus, type 2) diet controlled no meds FSGS (focal segmental glomerulosclerosis) DX INITIALLY 2012 (CAUSING ESRD 2012) Surgical History History of surgery left arm d/t clot in arm from AV fistula use @ [facility] History of surgery (~09/09/20) perm cath > since removed History of colonoscopy Kidney transplant recipient 2013 AT [facility] History of tooth extraction three TOOTH History of cardiac cath 2016 NO STENTS AVF (arteriovenous fistula) bilat upper arms ---currently using right for dialysis H/O hernia repair ABDOMINAL WALL History of cholecystectomy H/O eye surgery LASER SURGERY LEFT H/O tubal ligation H/O: X 2 H/O knee surgery LEFT KNEE X 2 Family History Grandmother Hx of CABG Mother Diabetes Father Crohn's disease Grandfather (Maternal) Diabetes Uncle Diabetes Grandmother (Maternal) Family history of reaction to anesthesia difficulty waking with colonoscopy Social History Smoking Status: Never smoker Tobacco Type: Cigarettes Cigarettes Per Day: 1 ppd; Second Hand Exposure: No; Do You Dip or Chew Tobacco: No; Hx Alcohol Use: No Hx Substance Use: No Preferred Language: Wolof Communication Ability: Effective 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 Beliefs That Will Affect Care: None marital status: Single Current Living Situation: Family Current Living Situation Comment: Lives with fiance and kids How many Children do You have: 3 Feels Safe at Home: Yes Assistive Devices: Crutches Allergies Allergies Allergy/AdvReac Type Severity Reaction Status Date / Time cefaclor Allergy Intermediate Rash Verified 11/14/23 16:49 Cephalosporins Allergy Intermediate Rash Verified 11/14/23 16:49 amoxicillin AdvReac Intermediate VOMITING Verified 11/14/23 16:49 clavulanic acid AdvReac Intermediate VOMITING Verified 11/14/23 16:49 Home Meds Home Medications Medication Instructions Recorded Confirmed albuterol sulfate 2.5 mg/3 mL 2.5 mg inhalation Q4H PRN 06/08/23 11/14/23 (0.083 %) solution for nebulization Shortness Of Breath Or Wheezing albuterol sulfate 90 mcg/actuation 2 puff inhalation Q6H PRN 06/08/23 11/14/23 aerosol inhaler Shortness Of Breath Or Wheezing carbamazepine 200 mg tablet 200 mg PO AMPM 06/08/23 11/14/23 gabapentin 400 mg capsule 400 mg PO TID 06/08/23 11/14/23 hydroxyzine HCl 25 mg tablet 25 mg PO Q6H PRN Anxiety 06/08/23 11/14/23 lorazepam 0.5 mg tablet 0.5 mg PO Q8 PRN Anxiety 06/08/23 11/14/23 mometasone-formoterol HFA 200 2 puff inhalation BID 06/08/23 11/14/23 mcg-5 mcg/actuation aerosol inhaler (Dulera) omeprazole 20 mg capsule,delayed 20 mg PO DAILYBB 06/08/23 11/14/23 release sertraline 100 mg tablet 100 mg PO DAILY 06/08/23 11/14/23 vitamin B complex-vitamin C-folic 1 tab PO DAILY 06/08/23 11/14/23 acid 0.8 mg tablet (Renal-Rika) benzonatate 100 mg capsule 200 mg PO TID PRN Cough 08/29/23 11/14/23 calcium acetate(phosphat bind) 667 2,001 mg PO TIDM 08/29/23 11/14/23 mg capsule cinacalcet 90 mg tablet 90 mg PO QDD 08/29/23 11/14/23 medroxyprogesterone 150 mg/mL 150 mg IM .EVERY 3 MONTHS 08/29/23 11/14/23 intramuscular suspension (Depo-Provera) sertraline 50 mg tablet 50 mg PO QAM 08/29/23 11/14/23 trazodone 100 mg tablet 200 mg PO HS 08/29/23 11/14/23 carvedilol 6.25 mg tablet 6.25 mg PO BID 11/14/23 11/14/23 Results & Data (ED) Vital Signs Vital Signs - 24 hr 11/14/23 16:57 11/14/23 16:57 11/14/23 18:10 Temperature Temperature Source Pulse Rate 90 Pulse Rate [Apical] 87 Pulse Rhythm [Apical] Regular Respiratory Rate 18 Respiratory Effort / Characteristics Non-Labored Spontaneous Respiratory Depth Normal Respiratory Pattern Blood Pressure Blood Pressure [Left Arm] 133/91 Blood Pressure Mean Blood Pressure Mean [Left Arm] 105 Blood Pressure Position [Left Arm] Pulse Oximetry 100 100 Oxygen Delivery Method Room Air Room Air Sepsis Recent Fever Within 48 Hours Sepsis New/Unexplained Change in Mental Status Sepsis Action Taken by Nursing 11/14/23 19:54 11/14/23 22:28 11/14/23 22:39 Temperature Temperature Source Pulse Rate 84 Pulse Rate [Apical] 87 85 Pulse Rhythm [Apical] Regular Respiratory Rate 18 18 Respiratory Effort / Characteristics Non-Labored Spontaneous Non-Labored Spontaneous Respiratory Depth Normal Normal Respiratory Pattern Regular Regular Blood Pressure Blood Pressure [Left Arm] 170/103 H 115/89 Blood Pressure Mean Blood Pressure Mean [Left Arm] 125 97 Blood Pressure Position [Left Arm] Lying Pulse Oximetry 95 93 Oxygen Delivery Method Room Air Room Air Sepsis Recent Fever Within 48 Hours Sepsis New/Unexplained Change in Mental Status Sepsis Action Taken by Nursing 11/14/23 23:04 11/14/23 23:10 11/14/23 23:10 Temperature 36.9 C Temperature Source Oral Pulse Rate 87 Pulse Rate [Apical] Pulse Rhythm [Apical] Respiratory Rate 20 Respiratory Effort / Characteristics Non-Labored Spontaneous Non-Labored Spontaneous Respiratory Depth Normal Normal Respiratory Pattern Regular Regular Blood Pressure 115/89 Blood Pressure [Left Arm] Blood Pressure Mean 97 Blood Pressure Mean [Left Arm] Blood Pressure Position [Left Arm] Pulse Oximetry 98 Oxygen Delivery Method Room Air Room Air Room Air Sepsis Recent Fever Within 48 Hours No Sepsis New/Unexplained Change in Mental Status N/A Sepsis Action Taken by Nursing No Action Required Home Medications Current Medication List: was personally reviewed by me Laboratory Data Attestation: I reviewed the patient's lab results. 11/14/23 18:53 11/14/23 18:53 Lab Results 11/14/23 11/14/23 11/14/23 Range/Units 16:56 18:53 20:59 WBC 4.29 L (4.8-10.8) K/ul RBC 2.98 L (4.20-5.40) M/uL Hgb 9.5 L (12.0-16.0) g/dl Hct 28.7 L (37.0-47.0) % MCV 96.3 (80.0-100.0) fL MCH 31.9 (25.0-34.0) pg MCHC 33.1 (32.0-36.0) g/dL RDW Std Deviation 55.7 H (36.4-46.3) fL RDW Coeff of Laith 15.9 H (11.5-14.5) % Plt Count 83 L (130-400) K/uL MPV 11.0 (9.4-12.4) fL Immature Gran % (Auto) 0.2 % Neut % (Auto) 74.1 % Lymph % (Auto) 15.2 % Gray % (Auto) 7.5 % Eos % (Auto) 2.8 % Baso % (Auto) 0.2 % Neut # (Auto) 3.18 (1.40-6.50) K/uL Lymph # (Auto) 0.65 L (1.20-3.40) K/uL Gray # (Auto) 0.32 (0.11-0.59) K/uL Eos # (Auto) 0.12 (0.00-0.50) K/uL Baso # (Auto) 0.01 (0.00-0.20) K/uL Immature Gran # (Auto) 0.01 (0.01-0.20) K/uL PT 11.0 (9.0-12.0) Seconds INR 1.0 (0.9-1.1) APTT 26 (21-31) Seconds PTT Ratio 0.9 Sodium 134 L (136-145) mmol/L Potassium 4.8 (3.5-5.1) mmol/L Chloride 85 L (98-107) mmol/L Carbon Dioxide 25 (21-32) mmol/L Anion Gap 24 H (3-11) BUN 98 H (6-23) mg/dl Creatinine 13.41 H* (0.6-1.2) mg/dl Est Cr Clr Drug Dosing Not Reportable Est GFR ( Amer) 3.6 ml/min Est GFR (Non-Af Amer) 3.1 ml/min BUN/Creatinine Ratio 7.3 L (10-20) Glucose 86 (70-99(Fasting)) mg/dl Calcium 9.6 (8.6-10.3) mg/dl Phosphorus 11.6 H (2.5-4.9) mg/dl Magnesium 3.0 H (1.7-2.4) mg/dl Total Bilirubin 0.6 (0.2-1.0) mg/dl AST 16 (13-39) U/L ALT 14 (7-52) U/L Alkaline Phosphatase 78 (34-104) U/L Total Creatine Kinase 57 (26-192) U/L Troponin I High Sens 198.3 H* 207.4 H* (0-14) pg/ml Total Protein 6.6 (6.0-8.3) gm/dl Albumin 3.9 (3.4-5.0) gm/dl Globulin 2.7 (2.5-4.0) gm/dl Albumin/Globulin Ratio 1.4 (0.9-2) TSH 1.033 (0.300-4.500) uIu/ml SARS-CoV-2, RNA, NAAT NEGATIVE (NEGATIVE) Administered Medications Benzonatate (Benzonatate 100 Mg Capsule) 100 mg PO NOW ONE Stop: 11/14/23 23:09 Last Admin: 11/14/23 23:24 Dose: 100 mg Documented By: DL Discontinued Medications Albuterol (Albut/Ipratrop 3mg/0.5mg Neb 3 Ml Vial) 3 ml NEB NOW STA; Protocol Stop: 11/14/23 20:35 Last Admin: 11/14/23 20:45 Dose: 3 ml Documented By: DIDI Carvedilol (Carvedilol 6.25 Mg Tab) 6.25 mg PO NOW STA Stop: 11/14/23 20:34 Last Admin: 11/14/23 20:45 Dose: 6.25 mg Documented By: DIDI Imaging Data Radiologist's Impression: Chest X-Ray 11/14/23 16:38 XR chest 1V portable HISTORY: Shortness of breath. COMPARISON: Chest 08/29/2023. FINDINGS: No pneumothorax. No pleural effusions. The cardiac silhouette remains enlarged. There is mild central pulmonary vascular congestion without overt edema. This has improved in the interval. No new focal lung consolidations to suggest a pneumonia. Multiple vascular stents are again noted. IMPRESSION: Cardiomegaly with mild pulmonary vascular congestion. This has improved. ACT 112: Negative or not required by law. Electronically signed by: Jose Jenkins M.D. 11/14/2023 5:16 PM Discharge Plan Visit Data Chief Complaint: Shortness of Breath/Dyspnea Stated Complaint: SOB ED Provider: [facility] Discharge Problem: Shortness of breath, Acute uremia, Medical non-compliance, Dialysis patient, Anemia Patient Disposition: Admitted As Inpatient Condition: Fair Forms Stand Alone Forms: My [facility] Prescriptions Prescriptions: No Action albuterol sulfate 2.5 mg /3 mL (0.083 %) Solution For Nebulization 2.5 mg INHALATION Q4H PRN (Reason: Shortness Of Breath Or Wheezing) gabapentin 400 mg capsule 400 mg PO TID sertraline 100 mg tablet 100 mg PO DAILY Rx Instructions: TOTAL DOSE 150 MG--TAKES WITH 50 MG TAB. carbamazepine 200 mg tablet 200 mg PO AMPM lorazepam 0.5 mg tablet 0.5 mg PO Q8 MDD panic attacks/before dialysis PRN (Reason: Anxiety) omeprazole 20 mg capsule,delayed release(DR/EC) 20 mg PO DAILYBB hydroxyzine HCl 25 mg tablet 25 mg PO Q6H PRN (Reason: Anxiety) Renal-Rika 0.8 mg Tablet 1 tab PO DAILY Rx Instructions: PER PT "CAN'T FIND IN STORE, BEEN OUT FOR A WHILE". albuterol sulfate 90 mcg/actuation Hfa Aerosol Inhaler 2 puff INHALATION Q6H PRN (Reason: Shortness Of Breath Or Wheezing) Dulera 200-5 mcg/actuation Hfa Aerosol Inhaler 2 puff INHALATION BID cinacalcet 90 mg tablet 90 mg PO QDD benzonatate 100 mg capsule 200 mg PO TID PRN (Reason: Cough) sertraline 50 mg tablet 50 mg PO QAM Rx Instructions: TOTAL DOSE 150 MG--TAKES WITH 100 MG TAB. trazodone 100 mg tablet 200 mg PO HS medroxyprogesterone [Depo-Provera] 150 mg/mL Suspension 150 mg IM .EVERY 3 MONTHS Rx Instructions: HAD SEP 2023 calcium acetate(phosphat bind) 667 mg Capsule 2,001 mg PO TIDM Rx Instructions: 2 TABS WITH SNACKS carvedilol 6.25 mg tablet 6.25 mg PO BID Referrals Referrals: Rozick,Adolph S., MD [Primary Care Provider] - Discharge Problem: Anemia Qualifiers: Anemia type: unspecified type Qualified Code(s): D64.9 - Anemia, unspecified
--- NOTE | 2023-11-14 17:19 | XRay Report ---
XR chest 1V portable HISTORY: Shortness of breath. COMPARISON: Chest 08/29/2023. FINDINGS: No pneumothorax. No pleural effusions. The cardiac silhouette remains enlarged. There is mi ld central pulmonary vascular congestion without overt edema. This has improved in the interval. No n ew focal lung consolidations to suggest a pneumonia. Multiple vascular stents are again noted. IMPRESSION: Cardiomegaly with mild pulmonary vascular congestion. This has improved. ACT 112: Negative or not required by law. Electronically signed by: Jose Jenkins M.D. 11/14/2023 5:16 PM
[2023-11-14 19:10] LABS: Basophils # (auto) 0.01 K/uL (0.00-0.20); Basophils % (auto) 0.2 %; Eosinophils # (auto) 0.12 K/uL (0.00-0.50); Eosinophils % (auto) 2.8 %; Hematocrit (blood only) 28.7 % (37.0-47.0); Hemoglobin 9.5 g/dl (12.0-16.0); Immature Granulocytes # (auto) 0.01 K/uL (0.01-0.20); Immature Granulocytes % (auto) 0.2 %; Lymphocytes # (auto) 0.65 K/uL (1.20-3.40); Lymphocytes % (auto) 15.2 %; Mean Corpuscular Hemoglobin 31.9 pg (25.0-34.0); Mean Corpuscular Hgb Conc 33.1 g/dL (32.0-36.0); Mean Corpuscular Volume 96.3 fL (80.0-100.0); Monocytes # (auto) 0.32 K/uL (0.11-0.59); Monocytes % (auto) 7.5 %; Neutrophils # (auto) 3.18 K/uL (1.40-6.50); Neutrophils % (auto) 74.1 %; Platelet Count 83 K/uL (130-400); RDW Coefficient of Variation 15.9 % (11.5-14.5); RDW Standard Deviation 55.7 fL (36.4-46.3); Red Blood Count 2.98 M/uL (4.20-5.40); White Blood Count 4.29 K/ul (4.8-10.8)
[2023-11-14 19:38] LABS: Alanine Aminotransferase 14 U/L (7-52); Albumin Globulin Ratio 1.4 (0.9-2); Albumin Level 3.9 gm/dl (3.4-5.0); Alkaline Phosphatase 78 U/L (34-104); Anion Gap 24 (3-11); Aspartate Aminotransferase 16 U/L (13-39); BUN Creatinine Ratio 7.3 (10-20); Bilirubin,Total 0.6 mg/dl (0.2-1.0); Blood Urea Nitrogen 98 mg/dl (6-23); Calcium 9.6 mg/dl (8.6-10.3); Carbon Dioxide 25 mmol/L (21-32); Chloride 85 mmol/L (98-107); Creatine Kinase 57 U/L (26-192); Est GFR (African American) 3.6 ml/min; Est GFR (Non-African American) 3.1 ml/min; Globulin 2.7 gm/dl (2.5-4.0); Glucose 86 mg/dl (70-99(Fasting)); Phosphorus 11.6 mg/dl (2.5-4.9); Potassium 4.8 mmol/L (3.5-5.1); Sodium 134 mmol/L (136-145); Total Protein 6.6 gm/dl (6.0-8.3); Troponin I High Sensitivity 198.3 pg/ml (0-14)
[2023-11-14 19:43] LABS: Thyroid Stimulating Hormone 1.033 uIu/ml (0.300-4.500)
[2023-11-14 19:47] LABS: Partial Thromboplastin Ratio 0.9; Partial Thromboplastin Time 26 Seconds (21-31)
[2023-11-14] MEDS: carvediloL 6.25 MG TAB PO STA (20:45)
[2023-11-14] MEDS: ALBUT/IPRATROP 3MG/0.5MG NEB 3 ML VIAL NEB STA (20:45)
[2023-11-14] MEDS ORDERED: BENZONATATE 100 MG CAPSULE PO PRN (23:08)
--- NOTE | 2023-11-14 23:08 | History & Physical Report ---
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, history medical noncompliance, high-dose of gabapentin in light of patient's kidney dysfunction possibly contributory to sleeping a lot and missing appointments Possible complicated bronchitis, no sepsis for now Troponin elevation in the setting of elevated BP and chronic kidney dysfunction DM2, diet controlled, well-controlled as of recent hemoglobin A1c of 5.9 last August 2023 anxiety/mood disorder, patient depressed but not suicidal chronic anemia, hemoglobin at baseline ongoing tobacco abuse Medical telemetry Stat nebs Nephrology consult Re: Dialysis management Doxycycline for complicated bronchitis, antitussives as needed Pulmonary consult if with worsening hemoptysis Facilitate p.m. Coreg Follow troponin Outpatient follow-up with patient psychiatrist Decrease current gabapentin dose of 400 mg 3 times daily to 200 mg 3 times daily and continue on discharge. ISS BG goal 110-140, carb count coverage DVT prophylaxis. SCDs RE hemoptysis Full code Text document was generated using [employer] voice recognition software. It may contain grammatical or spelling errors. Kindly contact undersigned for clarification of any documentation item in question. History of Present Illness Chief Complaint: Shortness of breath Primary Care Provider: Adolph Aldridge MD History obtained from patient and records. Medical history significant for hypertension, ESRD on HD, history of FSGS status post failed renal transplantation, DM2, diet controlled, anxiety/mood disorder, history of umbilical hernia, colonic polyps/diverticulosis, RLS, hx pelvic fracture, chronic anemia (baseline hemoglobin of 9), history of migraine, medical noncompliance, ongoing tobacco abuse. Last [facility] confinement August 2023 for hyperkalemia secondary to missed dialysis. Patient transferred to [facility] for emergent hemodialysis. Patient had worsening shortness of breath today without chest pain. Junky cough symptoms productive of brown, blood-tinged sputum. Denies aspiration, fever, chills. Missed last 2 sessions of outpatient hemodialysis because she would not wake up because her home alarm was bad. Patient not returning phone calls from outpatient case technician as per notes. Admits to being depressed but denies suicidality. Highest SBP of 170s documented at the ER. Medical History as above Surgical History : Vascular procedures, section, cystoscopy, knee surgery, eye surgery, BTL, renal biopsy, kidney transplant Family History : SLE, Crohn's disease, high blood pressure, depression Personal/Social history past tobacco abuse, no EtOH intake, disabled Allergies Allergy/AdvReac Type Severity Reaction Status Date / Time cefaclor Allergy Intermediate Rash Verified 11/14/23 16:49 Cephalosporins Allergy Intermediate Rash Verified 11/14/23 16:49 amoxicillin AdvReac Intermediate VOMITING Verified 11/14/23 16:49 clavulanic acid AdvReac Intermediate VOMITING Verified 11/14/23 16:49 Home Medications Medication Instructions Recorded Confirmed Type albuterol sulfate 2.5 mg/3 mL 2.5 mg inhalation Q4H PRN 06/08/23 11/14/23 History (0.083 %) solution for nebulization Shortness Of Breath Or Wheezing albuterol sulfate 90 mcg/actuation 2 puff inhalation Q6H PRN 06/08/23 11/14/23 History aerosol inhaler Shortness Of Breath Or Wheezing carbamazepine 200 mg tablet 200 mg PO AMPM 06/08/23 11/14/23 History gabapentin 400 mg capsule 400 mg PO TID 06/08/23 11/14/23 History hydroxyzine HCl 25 mg tablet 25 mg PO Q6H PRN Anxiety 06/08/23 11/14/23 History lorazepam 0.5 mg tablet 0.5 mg PO Q8 PRN Anxiety 06/08/23 11/14/23 History mometasone-formoterol HFA 200 2 puff inhalation BID 06/08/23 11/14/23 History mcg-5 mcg/actuation aerosol inhaler (Dulera) omeprazole 20 mg capsule,delayed 20 mg PO DAILYBB 06/08/23 11/14/23 History release sertraline 100 mg tablet 100 mg PO DAILY 06/08/23 11/14/23 History vitamin B complex-vitamin C-folic 1 tab PO DAILY 06/08/23 11/14/23 History acid 0.8 mg tablet (Renal-Rika) benzonatate 100 mg capsule 200 mg PO TID PRN Cough 08/29/23 11/14/23 History calcium acetate(phosphat bind) 667 2,001 mg PO TIDM 08/29/23 11/14/23 History mg capsule cinacalcet 90 mg tablet 90 mg PO QDD 08/29/23 11/14/23 History medroxyprogesterone 150 mg/mL 150 mg IM .EVERY 3 MONTHS 08/29/23 11/14/23 His tory intramuscular suspension (Depo-Provera) sertraline 50 mg tablet 50 mg PO QAM 08/29/23 11/14/23 History trazodone 100 mg tablet 200 mg PO HS 08/29/23 11/14/23 History carvedilol 6.25 mg tablet 6.25 mg PO BID 11/14/23 11/14/23 History Past Med/Surg History Medical History Abnormal chest xray Elevated lactic acid level Transaminitis Pneumonia Metabolic encephalopathy Acute non-ST elevation myocardial infarction (NSTEMI) Pulmonary edema Acute hyperkalemia Acute alteration in mental status Renal failure (ARF), acute on chronic Encephalopathy Rectal bleeding reason for up coming colonoscopy Facial fracture Thrombocytopenia Depression with anxiety Anemia of chronic disease Status post fall last fall November 2022 > nasal fx / knee pain, no surgery for either injury > resolved per pt report GI bleed ESRD (end stage renal disease) on dialysis Symptomatic anemia Tobacco abuse DVT prophylaxis Fistula right arm (currently being used) and left arm Dialysis patient SATURDAY/SAT/SATURDAY AT [facility] GERD (gastroesophageal reflux disease) Bipolar disorder Restless leg syndrome Peripheral neuropathy Prolonged QT interval no cardio Asthma rare res inh use History of abnormal cervical Papanicolaou smear Elevated troponin Anemia due to end stage renal disease Acute electrocardiogram changes HTN (hypertension) DM2 (diabetes mellitus, type 2) diet controlled no meds FSGS (focal segmental glomerulosclerosis) DX INITIALLY 2012 (CAUSING ESRD 2012) Surgical History History of surgery left arm d/t clot in arm from AV fistula use @ [facility] History of surgery (~09/09/20) perm cath > since removed History of colonoscopy Kidney transplant recipient 2013 AT [facility] History of tooth extraction three TOOTH History of cardiac cath 2016 NO STENTS AVF (arteriovenous fistula) bilat upper arms ---currently using right for dialysis H/O hernia repair ABDOMINAL WALL History of cholecystectomy H/O eye surgery LASER SURGERY LEFT H/O tubal ligation H/O: X 2 H/O knee surgery LEFT KNEE X 2 Family History Grandmother Hx of CABG Mother Diabetes Father Crohn's disease Grandfather (Maternal) Diabetes Uncle Diabetes Grandmother (Maternal) Family history of reaction to anesthesia difficulty waking with colonoscopy Social History Smoking Status: Never smoker Tobacco Type: Cigarettes Cigarettes Per Day: 1 ppd; Second Hand Exposure: No; Do You Dip or Chew Tobacco: No; Hx Alcohol Use: No Hx Substance Use: No Preferred Language: German Communication Ability: Effective Ward Attendant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 Beliefs That Will Affect Care: None marital status: Single Current Living Situation: Family Current Living Situation Comment: Lives with fiance and kids How many Children do You have: 3 Feels Safe at Home: Yes Assistive Devices: Crutches Review of Systems Review of Systems: As per HPI, all other systems reviewed and negative Physical Exam Physical Exam: GENERAL: Comfortable, obese, looks older than stated age, no respiratory distress SKIN: Pallor, warm HEENT: Pale palpebral conjunctivae, no ptosis, dry buccal mucosa NECK : Supple, short neck, no tenderness CHEST : Decreased breath sounds, no tenderness HEART : RRR, no obvious murmurs ABDOMEN: Some distention, nontender EXTREMITIES : Minimal LE swelling, no LE tenderness, upper extremity AV grafts, no other conspicuous deformities noted NEUROLOGIC : Coherent, no facial asymmetry, no other gross focality Results & Data Results & Data Vital Signs (Past 12 Hours) Vital Signs Pulse Pulse Resp BP Pulse Ox O2 Del Method 11/14/23 22:39 84 11/14/23 22:28 85 18 115/89 93 Room Air 11/14/23 19:54 87 18 170/103 H 95 Room Air 11/14/23 18:10 90 11/14/23 16:57 100 Room Air 11/14/23 16:57 87 18 133/91 100 Room Air Laboratory Results Laboratory Results WBC 4.29 K/ul (4.8-10.8) L 11/14/23 18:53 RBC 2.98 M/uL (4.20-5.40) L 11/14/23 18:53 Hgb 9.5 g/dl (12.0-16.0) L 11/14/23 18:53 Hct 28.7 % (37.0-47.0) L 11/14/23 18:53 MCV 96.3 fL (80.0-100.0) 11/14/23 18:53 MCH 31.9 pg (25.0-34.0) 11/14/23 18:53 MCHC 33.1 g/dL (32.0-36.0) 11/14/23 18:53 RDW Std Deviation 55.7 fL (36.4-46.3) H 11/14/23 18:53 RDW Coeff of Laith 15.9 % (11.5-14.5) H 11/14/23 18:53 Plt Count 83 K/uL (130-400) L 11/14/23 18:53 MPV 11.0 fL (9.4-12.4) 11/14/23 18:53 Immature Gran % (Auto) 0.2 % 11/14/23 18:53 Neut % (Auto) 74.1 % 11/14/23 18:53 Lymph % (Auto) 15.2 % 11/14/23 18:53 Sargent % (Auto) 7.5 % 11/14/23 18:53 Eos % (Auto) 2.8 % 11/14/23 18:53 Baso % (Auto) 0.2 % 11/14/23 18:53 Neut # (Auto) 3.18 K/uL (1.40-6.50) 11/14/23 18:53 Lymph # (Auto) 0.65 K/uL (1.20-3.40) L 11/14/23 18:53 Sargent # (Auto) 0.32 K/uL (0.11-0.59) 11/14/23 18:53 Eos # (Auto) 0.12 K/uL (0.00-0.50) 11/14/23 18:53 Baso # (Auto) 0.01 K/uL (0.00-0.20) 11/14/23 18:53 Immature Gran # (Auto) 0.01 K/uL (0.01-0.20) 11/14/23 18:53 PT 11.0 Seconds (9.0-12.0) 11/14/23 18:53 INR 1.0 (0.9-1.1) 11/14/23 18:53 APTT 26 Seconds (21-31) 11/14/23 18:53 PTT Ratio 0.9 11/14/23 18:53 Sodium 134 mmol/L (136-145) L 11/14/23 18:53 Potassium 4.8 mmol/L (3.5-5.1) 11/14/23 18:53 Chloride 85 mmol/L (98-107) L 11/14/23 18:53 Carbon Dioxide 25 mmol/L (21-32) 11/14/23 18:53 Anion Gap 24 (3-11) H 11/14/23 18:53 BUN 98 mg/dl (6-23) H 11/14/23 18:53 Creatinine 13.41 mg/dl (0.6-1.2) H* 11/14/23 18:53 Est Cr Clr Drug Dosing Not Reportable 11/14/23 18:53 Est GFR ( Amer) 3.6 ml/min 11/14/23 18:53 Est GFR (Non-Af Amer) 3.1 ml/min 11/14/23 18:53 BUN/Creatinine Ratio 7.3 (10-20) L 11/14/23 18:53 Glucose 86 mg/dl (70-99(Fasting)) 11/14/23 18:53 Calcium 9.6 mg/dl (8.6-10.3) 11/14/23 18:53 Phosphorus 11.6 mg/dl (2.5-4.9) H 11/14/23 18:53 Magnesium 3.0 mg/dl (1.7-2.4) H 11/14/23 18:53 Total Bilirubin 0.6 mg/dl (0.2-1.0) 11/14/23 18:53 AST 16 U/L (13-39) 11/14/23 18:53 ALT 14 U/L (7-52) 11/14/23 18:53 Alkaline Phosphatase 78 U/L (34-104) 11/14/23 18:53 Total Creatine Kinase 57 U/L (26-192) 11/14/23 18:53 Troponin I High Sens 207.4 pg/ml (0-14) H* 11/14/23 20:59 Total Protein 6.6 gm/dl (6.0-8.3) 11/14/23 18:53 Albumin 3.9 gm/dl (3.4-5.0) 11/14/23 18:53 Globulin 2.7 gm/dl (2.5-4.0) 11/14/23 18:53 Albumin/Globulin Ratio 1.4 (0.9-2) 11/14/23 18:53 TSH 1.033 uIu/ml (0.300-4.500) 11/14/23 18:53 SARS-CoV-2, RNA, NAAT NEGATIVE (NEGATIVE) 11/14/23 16:56 Impressions Chest X-Ray 11/14/23 16:38 XR chest 1V portable HISTORY: Shortness of breath. COMPARISON: Chest 08/29/2023. FINDINGS: No pneumothorax. No pleural effusions. The cardiac silhouette remains enlarged. There is mild central pulmonary vascular congestion without overt edema. This has improved in the interval. No new focal lung consolidations to suggest a pneumonia. Multiple vascular stents are again noted. IMPRESSION: Cardiomegaly with mild pulmonary vascular congestion. This has improved. ACT 112: Negative or not required by law. Electronically signed by: Jose Jenkins M.D. 11/14/2023 5:[address] chest: 1. Pulmonary vasculature is congested without overt edema or acute focal infiltrate. 2. The heart is mildly enlarged. Severe coronary and moderate mitral calcification is present. No pericardial effusion. Diagnostic Findings EKG as per my interpretation : Rate 85, NSR, LAD, LAFB, LVH, lateral infarct
[2023-11-14] MEDS ORDERED: PROMETHAZINE HCL 12.5 MG in SODIUM CHLORIDE 0.9% 50 ML IV PRN (23:14)
[2023-11-14] MEDS: BENZONATATE 100 MG CAPSULE PO ONE (23:24)
[2023-11-15] MEDS: hydrOXYzine HCl 25 MG TAB PO PRN (00:23)
[2023-11-15 00:46] LABS: Influenza A virus by PCR Negative (Neg); Influenza B virus by PCR Negative (Neg); RSV by PCR Negative (Neg); SARS CoV2 RNA(COVID-19) Ceph NEGATIVE (Negative)
[2023-11-15] MEDS ORDERED: CALCIUM ACETATE 667 MG CAP/TAB PO PRN (00:57)
--- NOTE | 2023-11-15 01:30 | CT Scan Report ---
Exam(s): CT CHEST Without Contrast EXAM: CT Chest Without Intravenous Contrast CLINICAL HISTORY: Reason for exam: hemoptysis. TECHNIQUE: Axial computed tomography images of the chest without intravenous contrast. CTDI is 23.85 mGy and DLP is 699.51 mGy-cm. Automated exposure control was utilized for the study. A dose lowering technique was utilized adhering to the principles of ALARA. COMPARISON: March 20, 2022 FINDINGS: Lungs: Pulmonary vasculature is congested without overt edema or acute focal infiltrate. No mass. Pleural space: Unremarkable. No pneumothorax. No significant effusion. Heart: The heart is moderately enlarged. Severe coronary and moderate mitral calcification is present. No pericardial effusion. Bones/joints: Unremarkable. No acute fracture. No dislocation. Soft tissues: Unremarkable. Vasculature: There is a metallic stent in the central aspect of the left brachiocephalic vein. Lymph nodes: Unremarkable. No enlarged lymph nodes. IMPRESSION: 1. Pulmonary vasculature is congested without overt edema or acute focal infiltrate. 2. The heart is mildly enlarged. Severe coronary and moderate mitral calcification is present. No pericardial effusion. Electronically signed by: Rodney Jaramillo MD 11/15/23 01:29 AM
[2023-11-15] MEDS: traZODone HCL 100 MG TAB PO SCH (01:32)
[2023-11-15] MEDS: ACETAMINOPHEN 325 MG TAB PO PRN (01:33)
[2023-11-15] MEDS: traMADol HCL 50 MG TABLET PO PRN (01:58)
[2023-11-15] MEDS ORDERED: DEXTROSE 50% 50 ML SYRINGE IV PRN (02:38)
[2023-11-15] MEDS ORDERED: GLUCOSE 10 TAB/TUBE PO PRN (02:38)
[2023-11-15] MEDS ORDERED: GLUCAGON FOR INJ 1 MG VIAL SQ PRN (02:38)
[2023-11-15] MEDS ORDERED: CARBOHYDRATES FOR HYPOGLYCEMIA PO PRN (02:38)
[2023-11-15] MEDS ORDERED: GLUCOSE 40% GEL 15 GM TUBE PO PRN (02:38)
[2023-11-15] MEDS: DOXYCYCLINE HYCLATE 100 MG in DEXTROSE 5% MINI-B 100 ML IV STA (03:39)
[2023-11-15] MEDS: LIDOCAINE/PRILOCAINE 2.5% EA CRM EXT STA (03:39)
[2023-11-15 05:02] LABS: Hematocrit (blood only) 27.4 % (37.0-47.0); Hemoglobin 9.1 g/dl (12.0-16.0); Mean Corpuscular Hemoglobin 31.9 pg (25.0-34.0); Mean Corpuscular Hgb Conc 33.2 g/dL (32.0-36.0); Mean Corpuscular Volume 96.1 fL (80.0-100.0); Mean Platelet Volume 10.9 fL (9.4-12.4); Platelet Count 79 K/uL (130-400); RDW Coefficient of Variation 15.7 % (11.5-14.5); RDW Standard Deviation 55.9 fL (36.4-46.3); Red Blood Count 2.85 M/uL (4.20-5.40)
[2023-11-15 05:04] LABS: BUN Creatinine Ratio 7.5 (10-20); Calcium 9.6 mg/dl (8.6-10.3); Creatinine Clr Calc Pharmacy 5.4 ml/min; Est GFR (African American) 3.4 ml/min; Potassium 5.4 mmol/L (3.5-5.1)
[2023-11-15 05:11] LABS: Troponin I High Sensitivity 169.6 pg/ml (0-14)
[2023-11-15 05:24] LABS: Basophils # (auto) 0.02 K/uL (0.00-0.20); Basophils % (auto) 0.4 %; Eosinophils # (auto) 0.13 K/uL (0.00-0.50); Eosinophils % (auto) 2.6 %; Immature Granulocytes # (auto) 0.08 K/uL (0.01-0.20); Immature Granulocytes % (auto) 1.6 %; Lymphocytes # (auto) 1.02 K/uL (1.20-3.40); Lymphocytes % (auto) 20.4 %; Monocytes # (auto) 0.35 K/uL (0.11-0.59); Ovalocytes 1+
[2023-11-15] MEDS: INSULIN HUMAN REGULAR PER UNIT 5 UNITS in SYRINGE 4.95 ML IV ONE (05:37)
[2023-11-15] MEDS: DEXTROSE 50% 50 ML SYRINGE IV ONE (05:41)
[2023-11-15] MEDS: SODIUM BICARB 8.4% INJ 50 MEQ/50 ML SYR IV STA (05:47)
[2023-11-15] MEDS: PANTOprazole 40 MG TAB PO SCH (05:55)
--- NOTE | 2023-11-15 06:38 | Communication Note ---
Date of Service: November 15, 2023 Patient with worsening pelvic pain since last night. Tramadol not working for pain as per patient Patient sleeping and listening to music overnight as per RN. AP Worsening pelvic pain History pelvic fracture Judicious narcotic use given patient history CT pelvis
[2023-11-15] MEDS: ACETAMINOPHEN 1,000 MG/100 ML VIAL IV STA (06:49)
--- NOTE | 2023-11-15 08:48 | CT Scan Report ---
CT pelvis wo con CT DOSE: 736.96 mGy.cm CLINICAL HISTORY: worsening pain, hx pelvic fx TECHNIQUE: Multiaxial CT images of the pelvis were performed without contrast and reformatted in the sagittal and coronal plane. A dose lowering technique was utilized adhering to the principles of ALA RA. COMPARISON STUDY: Abdomen and pelvis CT 05/11/2023. FINDINGS: There is sclerosis and callus formation surrounding the nondisplaced bilateral pubic ring f ractures consistent with subacute/healing fractures. Otherwise, no acute fracture or dislocation with in the pelvis or hips. The sacrum appears intact. Mild sclerosis and irregularity of the bilateral sa croiliac joints suggestive of a mild sacroiliitis. This is similar to the prior study. No evidence fo r a pelvic hematoma. No pelvic free fluid. The bladder is decompressed. This may account for the blad peter wall thickening. Stable 2 cm lesion within the uterus suggestive of a fibroid. The ovaries are un remarkable. Stable mixed density presacral/perirectal 2.5 cm lesion on image 119. This is indetermina te but likely benign. Colonic diverticulosis. No evidence for acute diverticulitis. Normal appendix. Mild body wall edema. Calcified right renal transplant again noted. Scarlike density within the right lower quadrant abdominal wall, unchanged. IMPRESSION: 1. Healing nondisplaced bilateral pubic ring fractures. 2. Otherwise, no acute fracture or dislocation within the pelvis or hips. 3. No pelvic hematoma identified. 4. Bladder wall thickening which may be due to underdistention. Recommend correlation with urinalysis to exclude a cystitis. ACT 112: Negative or not required by law. Electronically signed by: Jose Jenkins M.D. 11/15/2023 8:45 AM
[2023-11-15] MEDS ORDERED: SERTRALINE HCL 100 MG TABLET PO SCH (09:00)
[2023-11-15] MEDS: CALCIUM ACETATE 667 MG CAP/TAB PO SCH (09:24)
[2023-11-15] MEDS: LORazepam 0.5 MG TAB PO PRN (09:24)
[2023-11-15] MEDS: SERTRALINE HCL 50 MG TABLET PO SCH (09:25)
[2023-11-15] MEDS: NEPHROCAPS PO SCH (09:25)
[2023-11-15] MEDS: carvediloL 6.25 MG TAB PO SCH (09:25)
[2023-11-15] MEDS: GABAPENTIN 100 MG CAP PO SCH (09:26)
[2023-11-15] MEDS: FLUTICASONE/VILANTEROL 200/25MCG 14 PUFFS/INHALER INH SCH (09:26)
[2023-11-15] MEDS ORDERED: EPOETIN ALFA 10,000 UNITS in SYRINGE 0 ML IV SCH (09:30)
[2023-11-15] MEDS: INSULIN ASPART PER UNIT CHARGE SC SCH (09:52)
--- NOTE | 2023-11-15 11:38 | Nephrology Consultation ---
Date of Consultation November 15, 2023 Assessment & Plan (1) ESRD (end stage renal disease) on dialysis: (2) Shortness of breath: 38/F with ESRD on MWF but very non adherent. last dialysis was 11/07. Came in with SOB and Anxiety. Was placed on dialysis and She got off dialysis within 1 hr despite our best e ffort citing Anxiety. SOB is from Pulm congestion. She needs dialysis and she only stayed for 1 hr. Unless Dialysis and enough fluid removed Her BP wont come down and SOB does not gets better. Will try dialysis again tomorrow if she allows. recommend Psych eval if something can be done for Anxiety. Unless She gets regular dialysis she will not survive long History of Present Illness Reason for Consultation: ESRD on dialysis Attending Physician: Meryl Linares MD History of Present Illness 38/F with ESRD on MWF but very non adherent. last dialysis was 11/07. Came in with SOB and Anxiety. Was placed on dialysis and She got off dialysis within 1 hr despite our best effort citing Anxiety. ROS--Unable to obtain because of extreme agitation and anxiety. has SOB Physical Exam Physical Exam: GENERAL: Comfortable, obese, Extremely anxious and Agitated SKIN: Pallor, warm HEENT: MM moist NECK : Supple, short neck, no tenderness CHEST : Decreased breath sounds, no tenderness HEART : RRR, no obvious murmurs ABDOMEN: Some distention, nontender EXTREMITIES : 1+ LE swelling, no LE tenderness, upper extremity AV grafts, no other conspicuous deformities noted Allergies Allergy/AdvReac Type Severity Reaction Status Date / Time cefaclor Allergy Intermediate Rash Verified 11/14/23 16:49 Cephalosporins Allergy Intermediate Rash Verified 11/14/23 16:49 amoxicillin AdvReac Intermediate VOMITING Verified 11/14/23 16:49 clavulanic acid AdvReac Intermediate VOMITING Verified 11/14/23 16:49 Home Medications Medication Instructions Recorded Confirmed Type albuterol sulfate 2.5 mg/3 mL 2.5 mg inhalation Q4H PRN 06/08/23 11/14/23 History (0.083 %) solution for nebulization Shortness Of Breath Or Wheezing albuterol sulfate 90 mcg/actuation 2 puff inhalation Q6H PRN 06/08/23 11/14/23 History aerosol inhaler Shortness Of Breath Or Wheezing carbamazepine 200 mg tablet 200 mg PO AMPM 06/08/23 11/14/23 History gabapentin 400 mg capsule 400 mg PO TID 06/08/23 11/14/23 History hydroxyzine HCl 25 mg tablet 25 mg PO Q6H PRN Anxiety 06/08/23 11/14/23 History lorazepam 0.5 mg tablet 0.5 mg PO Q8 PRN Anxiety 06/08/23 11/14/23 History mometasone-formoterol HFA 200 2 puff inhalation BID 06/08/23 11/14/23 History mcg-5 mcg/actuation aerosol inhaler (Dulera) omeprazole 20 mg capsule,delayed 20 mg PO DAILYBB 06/08/23 11/14/23 History release sertraline 100 mg tablet 100 mg PO DAILY 06/08/23 11/14/23 History vitamin B complex-vitamin C-folic 1 tab PO DAILY 06/08/23 11/14/23 History acid 0.8 mg tablet (Renal-Rika) benzonatate 100 mg capsule 200 mg PO TID PRN Cough 08/29/23 11/14/23 History calcium acetate(phosphat bind) 667 2,001 mg PO TIDM 08/29/23 11/14/23 History mg capsule cinacalcet 90 mg tablet 90 mg PO QDD 08/29/23 11/14/23 History medroxyprogesterone 150 mg/mL 150 mg IM .EVERY 3 MONTHS 08/29/23 11/14/23 History intramuscular suspension (Depo-Provera) sertraline 50 mg tablet 50 mg PO QAM 08/29/23 11/14/23 History trazodone 100 mg tablet 200 mg PO HS 08/29/23 11/14/23 History carvedilol 6.25 mg tablet 6.25 mg PO BID 11/14/23 11/14/23 History Patient History Medical History Abnormal chest xray Elevated lactic acid level Transaminitis Pneumonia Metabolic encephalopathy Acute non-ST elevation myocardial infarction (NSTEMI) Pulmonary edema Acute hyperkalemia Acute alteration in mental status Renal failure (ARF), acute on chronic Encephalopathy Rectal bleeding reason for up coming colonoscopy Facial fracture Thrombocytopenia Depression with anxiety Anemia of chronic disease Status post fall last fall November 2022 > nasal fx / knee pain, no surgery for either injury > resolved per pt report GI bleed ESRD (end stage renal disease) on dialysis Symptomatic anemia Tobacco abuse DVT prophylaxis Fistula right arm (currently being used) and left arm Dialysis patient SATURDAY/SAT/SATURDAY AT [facility] GERD (gastroesophageal reflux disease) Bipolar disorder Restless leg syndrome Peripheral neuropathy Prolonged QT interval no cardio Asthma rare res inh use History of abnormal cervical Papanicolaou smear Elevated troponin Anemia due to end stage renal disease Acute electrocardiogram changes HTN (hypertension) DM2 (diabetes mellitus, type 2) diet controlled no meds FSGS (focal segmental glomerulosclerosis) DX INITIALLY 2012 (CAUSING ESRD 2012) Surgical History History of surgery left arm d/t clot in arm from AV fistula use @ [facility] History of surgery (~09/09/20) perm cath > since removed History of colonoscopy Kidney transplant recipient 2013 AT [facility] History of tooth extraction three TOOTH History of cardiac cath 2016 NO STENTS AVF (arteriovenous fistula) bilat upper arms ---currently using right for dialysis H/O hernia repair ABDOMINAL WALL History of cholecystectomy H/O eye surgery LASER SURGERY LEFT H/O tubal ligation H/O: X 2 H/O knee surgery LEFT KNEE X 2 Family History Grandmother Hx of CABG Mother Diabetes Father Crohn's disease Grandfather (Maternal) Diabetes Uncle Diabetes Grandmother (Maternal) Family history of reaction to anesthesia difficulty waking with colonoscopy Social History Smoking Status: Current every day smoker Tobacco Type: Cigarettes Cigarettes Per Day: 1 ppd; Second Hand Exposure: No; Do You Dip or Chew Tobacco: No; Tobacco Cessation Education Requested by Patient: No Hx Alcohol Use: No Hx Substance Use: Yes Substance Use Type Other:: medical marijuana at HS Preferred Language: Qatari Communication Ability: Effective Reciprocating Drill Operator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 Beliefs That Will Affect Care: None marital status: Single Current Living Situation: Family Current Living Situation Comment: Lives with fiance and kids How many Children do You have: 3 Other Information That Helps Us Care for You: No Feels Safe at Home: Yes Safety Concerns: Feels Safe At This Time Assistive Devices: Walker Results & Data Vital Signs (Past 12 Hours) Vital Signs Temp Pulse Pulse Pulse Pulse Resp BP 11/15/23 10:03 75 170/109 H 11/15/23 09:56 36.5 C 79 11/15/23 08:02 87 11/15/23 07:42 36.6 C 77 20 11/15/23 00:22 87 11/14/23 23:56 11/14/23 23:56 87 BP Pulse Ox Pulse Ox O2 Del Method O2 Del Method 11/15/23 10:03 11/15/23 09:56 11/15/23 08:02 11/15/23 07:42 134/79 97 Room Air 11/15/23 00:22 11/14/23 23:56 95 Room Air 11/14/23 23:56
[2023-11-15] MEDS: EPOETIN ALFA 10,000 UNITS/ML VIAL IV SCH (11:52)
--- NOTE | 2023-11-15 11:59 | Electrocardiogram Report ---
Test Reason : Blood Pressure : / mmHG Vent. Rate : 085 BPM Atrial Rate : 085 BPM P-R Int : 158 ms QRS Dur : 104 ms QT Int : 412 ms P-R-T Axes : 033 -42 027 degrees QTc Int : 490 ms Normal sinus rhythm Left axis deviation Moderate voltage criteria for LVH, may be normal variant Poor R wave progression, consider anterior [place] vs. lead placement vs. LVH Possible Lateral infarct (cited on or before 12-MAY-2023) Abnormal ECG When compared with ECG of 06-NOV-2023 09:20, T wave inversion no longer evident in Inferior leads T wave amplitude has increased in Lateral leads Confirmed by Daljit Thompson ([id number]) on 11/15/2023 11:59:22 AM Referred By: REFERRED SELF Confirmed By:Ric Thompson
[2023-11-15] MEDS: ACETAMINOPHEN 1,000 MG/100 ML VIAL IV PRN (13:57)
--- NOTE | 2023-11-15 14:28 | Hospitalist Progress Note ---
Date of Service November 15, 2023 Assessment & Plan (1) Shortness of breath: Plan: Pt is a 38yoF with PMHx significant for hypertension, ESRD on HD, history of FSGS status post failed renal transplantation, DM2, diet controlled, anxiety/mood disorder, history of umbilical hernia, colonic polyps/diverticulosis, RLS, hx pelvic fracture, chronic anemia (baseline hemoglobin of 9), history of migraine, medical noncompliance, ongoing tobacco abuse presenting with pain and SOB. Acute hypoxic respiratory status Bronchitis Multifactorial Pulmonary congestion secondary to cardiorenal syndrome secondary to missed dialysis, Possible complicated bronchitis, no sepsis for now Nebs, Doxycycline for complicated bronchitis, antitussives as needed Pulmonary consult if with worsening hemoptysis Currently on RA, continue to monitor ESRD with dialysis dependence secondary to FSGS sp failed renal transplantation on HD history medical noncompliance, high-dose of gabapentin in light of patient's kidney dysfunction possibly contributory to sleeping a lot and missing appointments Nephrology consulted- pt stopped dialysis early Chest pain Troponin elevation in the setting of elevated BP and chronic kidney dysfunction Downtrending Pt on tramadol and agreeable to IV Tylenol DM2 diet controlled, well-controlled as of recent hemoglobin A1c of 5.9 last August 2023 ISS per protocol anxiety/mood disorder patient depressed but not suicidal Continue home meds chronic anemia hemoglobin at baseline Stable HTN Continue home coreg Chronic Pain Decrease current gabapentin dose of 400 mg 3 times daily to 200 mg 3 times daily and continue on discharge. Diet:renal DVT prophylaxis: SCDs RE hemoptysis Full code Admission and Anticipated Discharge Date Admission Date: November 14, 2023 Subjective Pt was seen urgently. Having lots of pain. Left dialysis early. chest pain. Review of Systems Review of Systems: All systems reviewed & are unremarkable except as noted in Subjective Physical Exam Physical Exam: General: Alert, oriented. No acute distress Skin: No noted rashes or bruises Psych: Appropriate mood and affect Neuro: No gross deficits HEENT: NC/AT Chest: Nontender to palpation. CV: RRR, Normal s1, s2. No murmurs appreciated Resp: Breath sounds clear bilaterally, no increased effort of breathing Abdomen:Soft, nontender Extremities: No edema in lower extremities bilaterally. Results & Data Results & Data Vital Signs (Past 12 Hours) Vital Signs Temp Pulse Pulse Pulse Resp BP BP 11/15/23 12:42 85 18 158/95 H 11/15/23 11:50 36.4 C L 88 20 125/74 11/15/23 11:20 36.5 C 80 170/109 H 11/15/23 11:00 78 156/95 H 11/15/23 10:30 84 143/108 H 11/15/23 10:03 75 170/109 H 11/15/23 09:56 36.5 C 79 11/15/23 08:02 87 11/15/23 07:42 36.6 C 77 20 134/79 Pulse Ox O2 Del Method 11/15/23 12:42 94 Room Air 11/15/23 11:50 95 Room Air 11/15/23 11:20 11/15/23 11:00 11/15/23 10:30 11/15/23 10:03 11/15/23 09:56 11/15/23 08:02 11/15/23 07:42 97 Room Air
--- NOTE | 2023-11-15 15:40 | Electrocardiogram Report ---
Test Reason : Blood Pressure : / mmHG Vent. Rate : 084 BPM Atrial Rate : 084 BPM P-R Int : 162 ms QRS Dur : 108 ms QT Int : 448 ms P-R-T Axes : 057 013 010 degrees QTc Int : 529 ms Normal sinus rhythm Possible Anterolateral infarct (cited on or before 12-MAY-2023) Prolonged QT Abnormal ECG When compared with ECG of 14-NOV-2023 14:35, ST now depressed in Lateral leads Nonspecific T wave abnormality now evident in Inferior leads Confirmed by Daljit Thompson ([id number]) on 11/15/2023 3:39:45 PM Referred By: REFERRED SELF Confirmed By:Ric Thompson
[2023-11-15] MEDS ORDERED: DEXTROSE 50% 50 ML SYRINGE IV ONE (17:25)
[2023-11-15] MEDS: CINACALCET HCL 90 MG TAB PO SCH (17:29)
[2023-11-15] MEDS: DOXYCYCLINE HYCLATE 100 MG CAP PO SCH (21:22)
[2023-11-16 06:40] LABS: Hematocrit (blood only) 30.8 % (37.0-47.0); Mean Corpuscular Hemoglobin 32.1 pg (25.0-34.0); Mean Corpuscular Hgb Conc 32.5 g/dL (32.0-36.0); Mean Corpuscular Volume 98.7 fL (80.0-100.0); Mean Platelet Volume 10.8 fL (9.4-12.4); Platelet Count 83 K/uL (130-400); RDW Coefficient of Variation 15.6 % (11.5-14.5); RDW Standard Deviation 56.3 fL (36.4-46.3); Red Blood Count 3.12 M/uL (4.20-5.40); White Blood Count 4.03 K/ul (4.8-10.8)
[2023-11-16] MEDS ORDERED: SODIUM CHLORIDE 0.9% 1,000 ML IV PRN (07:00)
[2023-11-16 07:04] LABS: Albumin Globulin Ratio 1.5 (0.9-2); BUN Creatinine Ratio 6.6 (10-20); Bilirubin,Total 0.6 mg/dl (0.2-1.0); Calcium 9.7 mg/dl (8.6-10.3); Creatinine Clr Calc Pharmacy 7.6 ml/min; Est GFR (African American) 4.4 ml/min; Est GFR (Non-African American) 3.8 ml/min; Globulin 2.7 gm/dl (2.5-4.0); Magnesium 2.6 mg/dl (1.7-2.4); Phosphorus 9.9 mg/dl (2.5-4.9); Potassium 5.4 mmol/L (3.5-5.1); Total Protein 6.7 gm/dl (6.0-8.3)
--- NOTE | 2023-11-16 08:02 | Hospitalist Progress Note ---
Date of Service November 16, 2023 Assessment & Plan (1) Shortness of breath: Plan: Pt is a 38yoF with PMHx significant for hypertension, ESRD on HD, history of FSGS status post failed renal transplantation, DM2, diet controlled, anxiety/mood disorder, history of umbilical hernia, colonic polyps/diverticulosis, RLS, hx pelvic fracture, chronic anemia (baseline hemoglobin of 9), history of migraine, medical noncompliance, ongoing tobacco abuse presenting with pain and SOB. Acute hypoxic respiratory status Bronchitis Multifactorial Pulmonary congestion secondary to cardiorenal syndrome secondary to missed dialysis, Possible complicated bronchitis, no sepsis for now Nebs, Doxycycline for complicated bronchitis, antitussives as needed Pulmonary consult if with worsening hemoptysis Currently on RA, continue to monitor ESRD with dialysis dependence secondary to FSGS sp failed renal transplantation on HD history medical noncompliance, high-dose of gabapentin in light of patient's kidney dysfunction possibly contributory to sleeping a lot and missing appointments Nephrology consulted- pt stopped dialysis early Chest pain Troponin elevation in the setting of elevated BP and chronic kidney dysfunction Downtrending Pt on tramadol and agreeable to IV Tylenol DM2 diet controlled, well-controlled as of recent hemoglobin A1c of 5.9 last August 2023 ISS per protocol anxiety/mood disorder patient depressed but not suicidal Continue home meds chronic anemia hemoglobin at baseline Stable HTN Continue home coreg Chronic Pain Decrease current gabapentin dose of 400 mg 3 times daily to 200 mg 3 times daily and continue on discharge. Diet:renal DVT prophylaxis: SCDs RE hemoptysis Full code Admission and Anticipated Discharge Date Admission Date: November 14, 2023 Subjective Seen while getting dialysis, states she will stay for full 3 hours. Seems like pain is controlled. Denied other acute concerns. Review of Systems Review of Systems: All systems reviewed & are unremarkable except as noted in Subjective Physical Exam Physical Exam: General: Alert, oriented. No acute distress Skin: No noted rashes or bruises Psych: Appropriate mood and affect Neuro: No gross deficits HEENT: NC/AT Chest: Nontender to palpation. CV: RRR, Normal s1, s2. No murmurs appreciated Resp: Breath sounds clear bilaterally, no increased effort of breathing Abdomen:Soft, nontender Extremities: No edema in lower extremities bilaterally. Results & Data Results & Data Vital Signs (Past 12 Hours) Vital Signs Temp Pulse Pulse Pulse Resp BP Pulse Ox 11/16/23 07:57 36.6 C 82 16 174/94 H 96 11/16/23 07:50 83 11/16/23 03:20 36.5 C 78 18 156/87 H 94 11/15/23 23:00 37.1 C 86 18 157/95 H 96 11/15/23 21:56 85 O2 Del Method 11/16/23 07:57 Room Air 11/16/23 07:50 11/16/23 03:20 Room Air 11/15/23 23:00 Room Air 11/15/23 21:56
[2023-11-16] MEDS: EPOETIN ALFA 10,000 UNITS/ML VIAL IV ONE (10:55)
--- NOTE | 2023-11-16 13:28 | Nephrology Progress Note ---
Date of Service November 16, 2023 Assessment & Plan (1) ESRD (end stage renal disease) on dialysis: Plan: 38/F with ESRD on MWF but very non adherent. last dialysis was 11/07. Came in with SOB and Anxiety. Was placed on dialysis and She got off dialysis within 1 hr despite our best effort citing Anxiety. SOB is from Pulm congestion. She only stayed for 1 hr yesterday She has agreed for full treatment today recommend Psych eval if something can be done for Anxiety. Unless She gets regular dialysis she will not survive long (2) Shortness of breath: Plan: As above Admission and Anticipated Discharge Date Admission Date: November 14, 2023 Subjective Pt was seen and examined on Dialysis Agrreable for full treatment today. Review of Systems 2 Review of Systems: All systems reviewed & are unremarkable except as noted in HPI & below Physical Exam 2 Physical Exam: SOB Bilateral crepitation, decreased breath sounds bilaterally Results & Data Vital Signs (Past 12 Hours) Vital Signs Temp Pulse Pulse Pulse Pulse Resp BP 11/16/23 13:00 86 156/101 H 11/16/23 12:30 95 H 148/91 H 11/16/23 12:00 68 125/89 11/16/23 11:30 93 H 151/89 H 11/16/23 11:00 86 120/100 11/16/23 10:30 85 162/101 H 11/16/23 10:00 81 155/81 H 11/16/23 09:57 77 95/74 L 11/16/23 09:49 36.4 C L 70 11/16/23 07:57 36.6 C 82 16 11/16/23 07:50 83 11/16/23 03:20 36.5 C 78 18 BP Pulse Ox O2 Del Method 11/16/23 13:00 11/16/23 12:30 11/16/23 12:00 11/16/23 11:30 11/16/23 11:00 11/16/23 10:30 11/16/23 10:00 11/16/23 09:57 11/16/23 09:49 11/16/23 07:57 174/94 H 96 Room Air 11/16/23 07:50 11/16/23 03:20 156/87 H 94 Room Air Laboratory Results 11/16/23 06:24 11/16/23 06:24
[2023-11-17 05:39] LABS: Hematocrit (blood only) 29.4 % (37.0-47.0); Hemoglobin 9.4 g/dl (12.0-16.0); Mean Corpuscular Hemoglobin 32.1 pg (25.0-34.0); Mean Corpuscular Volume 100.3 fL (80.0-100.0); Mean Platelet Volume 11.4 fL (9.4-12.4); Platelet Count 86 K/uL (130-400); RDW Coefficient of Variation 15.2 % (11.5-14.5); RDW Standard Deviation 55.9 fL (36.4-46.3); Red Blood Count 2.93 M/uL (4.20-5.40); White Blood Count 3.14 K/ul (4.8-10.8)
[2023-11-17 06:02] LABS: Albumin Globulin Ratio 1.6 (0.9-2); Albumin Level 3.9 gm/dl (3.4-5.0); Bilirubin,Total 0.8 mg/dl (0.2-1.0); Calcium 9.4 mg/dl (8.6-10.3); Creatinine Clr Calc Pharmacy 13.9 ml/min; Est GFR (African American) 9.2 ml/min; Est GFR (Non-African American) 7.9 ml/min; Globulin 2.5 gm/dl (2.5-4.0); Magnesium 2.3 mg/dl (1.7-2.4); Phosphorus 6.1 mg/dl (2.5-4.9); Potassium 4.1 mmol/L (3.5-5.1); Total Protein 6.4 gm/dl (6.0-8.3)
--- NOTE | 2023-11-17 15:16 | Discharge Summary ---
Discharge Summary Date of Service November 17, 2023 Notes For Next Care Provider Please ensure pt follows up with scheduled dialysis sessions. Compliance an issue. Medication Changes From Visit Doxycycline 100mg BID x 3 more days Admission HPI Per Admitting Provider History obtained from patient and records. Medical history significant for hypertension, ESRD on HD, history of FSGS status post failed renal transplantation, DM2, diet controlled, anxiety/mood disorder, history of umbilical hernia, colonic polyps/diverticulosis, RLS, hx pelvic fracture, chronic anemia (baseline hemoglobin of 9), history of migraine, medical noncompliance, ongoing tobacco abuse. Last [facility] confinement August 2023 for hyperkalemia secondary to missed dialysis. Patient transferred [place] [facility] [place]. Patient had worsening shortness of breath today without chest pain. Junky cough symptoms productive of brown, blood-tinged sputum. Denies aspiration, fever, chills. Missed last 2 sessions of outpatient hemodialysis because she would not wake up because her home alarm was bad. Patient not returning phone calls from outpatient case management rn as per notes. Admits to being depressed but denies suicidality. Highest SBP of 170s documented at the ER. Medical History as above Surgical History : Vascular procedures, section, cystoscopy, knee s urgery, eye surgery, BTL, renal biopsy, kidney transplant Family History : SLE, Crohn's disease, high blood pressure, depression Personal/Social history past tobacco abuse, no EtOH intake, disabled Admission Exam Per Admitting Provider GENERAL: Comfortable, obese, looks older than stated age, no respiratory distress SKIN: Pallor, warm HEENT: Pale palpebral conjunctivae, no ptosis, dry buccal mucosa NECK : Supple, short neck, no tenderness CHEST : Decreased breath sounds, no tenderness HEART : RRR, no obvious murmurs ABDOMEN: Some distention, nontender EXTREMITIES : Minimal LE swelling, no LE tenderness, upper extremity AV grafts, no other conspicuous deformities noted NEUROLOGIC : Coherent, no facial asymmetry, no other gross focality Principal Dx & Hospital Course #1 = Principal Diagnosis (1) Shortness of breath: Plan Pt is a 38yoF with PMHx significant for hypertension, ESRD on HD, history of FSGS status post failed renal transplantation, DM2, diet controlled, anxiety/mood disorder, history of umbilical hernia, colonic polyps/diverticulosis, RLS, hx pelvic fracture, chronic anemia (baseline hemoglobin of 9), history of migraine, medical noncompliance, ongoing tobacco abuse presenting with pain and SOB. Acute hypoxic respiratory status Bronchitis Multifactorial Pulmonary congestion secondary to cardiorenal syndrome secondary to missed dialysis Possible complicated bronchitis, no sepsis for now Nebs, Doxycycline for complicated bronchitis, antitussives as needed Pulmonary consult if with worsening hemoptysis On RA Discharged with 3 more days of doxycycline. Anasarca ESRD with dialysis dependence secondary to FSGS s/p failed renal transplantation on HD history medical noncompliance, high-dose of gabapentin in light of patient's kidney dysfunction possibly contributory to sleeping a lot and missing appointments Nephrology consulted- pt stopped dialysis early on 11/14 Completed dialysis on 11/15 Cr at baseline at ~6 Nephrology follow up after discharge for continued scheduled dialysis- pt compliance an issue. PCP follow up as well. Chest pain Troponin elevation in the setting of elevated BP and chronic kidney dysfunction Troponin downtrended Pt on tramadol and agreeable to IV Tylenol DM2 diet controlled, well-controlled as of recent hemoglobin A1c of 5.9 last August 2023 ISS per protocol PCP follow up anxiety/mood disorder patient depressed but not suicidal Continue home meds chronic anemia hemoglobin at baseline Stable HTN Continue home coreg Chronic Pain Decrease current gabapentin dose of 400 mg 3 times daily to 200 mg 3 times daily Home dose resumed on discharge Discharge Exam General: Alert, oriented. No acute distress Skin: No noted rashes or bruises Psych: Appropriate mood and affect Neuro: No gross deficits HEENT: NC/AT Chest: Nontender to palpation. CV: RRR, Normal s1, s2. No murmurs appreciated Resp: Breath sounds clear bilaterally, no increased effort of breathing Abdomen:Soft, nontender Extremities: No edema in lower extremities bilaterally. Updated Medication List Medication Instructions Recorded Confirmed Type albuterol sulfate 2.5 mg/3 mL 2.5 mg inhalation Q4H PRN 06/08/23 11/14/23 History (0.083 %) solution for nebulization Shortness Of Breath Or Wheezing albuterol sulfate 90 mcg/actuation 2 puff inhalation Q6H PRN 06/08/23 11/14/23 History aerosol inhaler Shortness Of Breath Or Wheezing carbamazepine 200 mg tablet 200 mg PO AMPM 06/08/23 11/14/23 History gabapentin 400 mg capsule 400 mg PO TID 06/08/23 11/14/23 History hydroxyzine HCl 25 mg tablet 25 mg PO Q6H PRN Anxiety 06/08/23 11/14/23 History lorazepam 0.5 mg tablet 0.5 mg PO Q8 PRN Anxiety 06/08/23 11/14/23 History mometasone-formoterol HFA 200 2 puff inhalation BID 06/08/23 11/14/23 History mcg-5 mcg/actuation aerosol inhaler (Dulera) omeprazole 20 mg capsule,delayed 20 mg PO DAILYBB 06/08/23 11/14/23 History release sertraline 100 mg tablet 100 mg PO DAILY 06/08/23 11/14/23 History vitamin B complex-vitamin C-folic 1 tab PO DAILY 06/08/23 11/14/23 History acid 0.8 mg tablet (Renal-Rika) benzonatate 100 mg capsule 200 mg PO TID PRN Cough 08/29/23 11/14/23 History calcium acetate(phosphat bind) 667 2,001 mg PO TIDM 08/29/23 11/14/23 History mg capsule cinacalcet 90 mg tablet 90 mg PO QDD 08/29/23 11/14/23 History medroxyprogesterone 150 mg/mL 150 mg IM .EVERY 3 MONTHS 08/29/23 11/14/23 History intramuscular suspension (Depo-Provera) sertraline 50 mg tablet 50 mg PO QAM 08/29/23 11/14/23 History trazodone 100 mg tablet 200 mg PO HS 08/29/23 11/14/23 History carvedilol 6.25 mg tablet 6.25 mg PO BID 11/14/23 11/14/23 History doxycycline hyclate 100 mg capsule 100 mg PO BID #6 caps 11/17/23 Rx Hospital Stay Data Consultations 11/14/23 19:51 ED Decision to Admit Stat 11/14/23 23:14 Consult Nephrology Routine 11/15/23 11:30 Consult Nephrology Routine Diagnostic Imagining Performed 11/14/23 23:08 CT chest diagnostic wo con Stat 11/15/23 07:20 CT pelvis wo con Stat Chest X-Ray 11/14/23 16:38 XR chest 1V portable HISTORY: Shortness of breath. COMPARISON: Chest 08/29/2023. FINDINGS: No pneumothorax. No pleural effusions. The cardiac silhouette remains enlarged. There is mild central pulmonary vascular congestion without overt edema. This has improved in the interval. No new focal lung consolidations to suggest a pneumonia. Multiple vascular stents are again noted. IMPRESSION: Cardiomegaly with mild pulmonary vascular congestion. This has improved. ACT 112: Negative or not required by law. Electronically signed by: Jose Jenkins M.D. 11/14/2023 5:[address] 11/14/23 23:08 Exam(s): CT CHEST Without Contrast EXAM: CT Chest Without Intravenous Contrast CLINICAL HISTORY: Reason for exam: hemoptysis. TECHNIQUE: Axial computed tomography images of the chest without intravenous contrast. CTDI is 23.85 mGy and DLP is 699.51 mGy-cm. Automated exposure control was utilized for the study. A dose lowering technique was utilized adhering to the principles of ALARA. COMPARISON: March 20, 2022 FINDINGS: Lungs: Pulmonary vasculature is congested without overt edema or acute focal infiltrate. No mass. Pleural space: Unremarkable. No pneumothorax. No significant effusion. Heart: The heart is moderately enlarged. Severe coronary and moderate mitral calcification is present. No pericardial effusion. Bones/joints: Unremarkable. No acute fracture. No dislocation. Soft tissues: Unremarkable. Vasculature: There is a metallic stent in the central aspect of the left brachiocephalic vein. Lymph nodes: Unremarkable. No enlarged lymph nodes. IMPRESSION: 1. Pulmonary vasculature is congested without overt edema or acute focal infiltrate. 2. The heart is mildly enlarged. Severe coronary and moderate mitral calcification is present. No pericardial effusion. Electronically signed by: Rodney Jaramillo MD 11/15/23 01:[address] 11/15/23 07:[address] pelvis wo con CT DOSE: 736.96 mGy.cm CLINICAL HISTORY: worsening pain, hx pelvic fx TECHNIQUE: Multiaxial CT images of the pelvis were performed without contrast and reformatted in the sagittal and coronal plane. A dose lowering technique was utilized adhering to the principles of ALARA. COMPARISON STUDY: Abdomen and pelvis CT 05/11/2023. FINDINGS: There is sclerosis and callus formation surrounding the nondisplaced bilateral pubic ring fractures consistent with subacute/healing fractures. Otherwise, no acute fracture or dislocation within the pelvis or hips. The sacrum appears intact. Mild sclerosis and irregularity of the bilateral sacroiliac joints suggestive of a mild sacroiliitis. This is similar to the prior study. No evidence for a pelvic hematoma. No pelvic free fluid. The bladder is decompressed. This may account for the bladder wall thickening. Stable 2 cm lesion within the uterus suggestive of a fibroid. The ovaries are unremarkable. Stable mixed density presacral/perirectal 2.5 cm lesion on image 119. This is indeterminate but likely benign. Colonic diverticulosis. No evidence for acute diverticulitis. Normal appendix. Mild body wall edema. Calcified right renal transplant again noted. Scarlike density within the right lower quadrant abdominal wall, unchanged. IMPRESSION: 1. Healing nondisplaced bilateral pubic ring fractures. 2. Otherwise, no acute fracture or dislocation within the pelvis or hips. 3. No pelvic hematoma identified. 4. Bladder wall thickening which may be due to underdistention. Recommend correlation with urinalysis to exclude a cystitis. ACT 112: Negative or not required by law. Electronically signed by: Jose Jenkins M.D. 11/15/2023 8:45 AM Pending Results Patient Have Any Pending Studies at Discharge: No Discharge Instructions Given to Patient (Per Discharging Provider) Alexandra, You were admitted with fluid overload. We treated you with dialysis that you missed. Please keep your dialysis sessions as scheduled. We are also discharging you with 3 more days of antibiotics to help with a bronchitis picture. Please keep close follow up with your primary care provider and brake drum molder after discharge. Please do not hesitate to come back to the emergency room if your symptoms worsen or return. It was a pleasure taking care of you while you were here. Total Time Total Time Spent Total Time Spent (In Minutes): > 30 minutes
[2023-11-18] MEDS ORDERED: SODIUM CHLORIDE 0.9% 1,000 ML IV PRN (07:00)
== END 2023-11-17 16:46 | disposition home or self-care (01) | DRG 682 ==
LOC: ED 16:26 → EDINP 23:12 → 2W 11-15 00:14
DX: E11.9 Type 2 diabetes mellitus without complications; N04.1 Nephrotic syndrome with focal and segmental glomerular lesions; J40 Bronchitis, not specified as acute or chronic; G89.29 Other chronic pain; F17.200 Nicotine dependence, unspecified, uncomplicated; Z79.899 Other long term (current) drug therapy; R77.8 Other specified abnormalities of plasma proteins; D63.1 Anemia in chronic kidney disease; T86.12 Kidney transplant failure; F41.8 Other specified anxiety disorders; Z99.2 Dependence on renal dialysis; Z88.1 Allergy status to other antibiotic agents; N18.6 End stage renal disease; Z79.51 Long term (current) use of inhaled steroids; S32.810D Multiple fractures of pelvis with stable disruption of pelvic ring, subsequent encounter for fracture with routine healing; Z79.3 Long term (current) use of hormonal contraceptives; X58.XXXD Exposure to other specified factors, subsequent encounter; Z88.0 Allergy status to penicillin; I12.0 Hypertensive chronic kidney disease with stage 5 chronic kidney disease or end stage renal disease; Z91.158 Patient's noncompliance with renal dialysis for other reason

== ENCOUNTER 2023-12-06 14:26 | Inpatient (IN) ==
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
[2023-12-06] MEDS: LORazepam 1 MG TAB SL STA (17:16)
[2023-12-06 18:01] LABS: Basophils # (auto) 0.03 K/uL (0.00-0.20); Basophils % (auto) 0.6 %; Eosinophils # (auto) 0.08 K/uL (0.00-0.50); Eosinophils % (auto) 1.7 %; Hematocrit (blood only) 28.8 % (37.0-47.0); Hemoglobin 9.4 g/dl (12.0-16.0); Immature Granulocytes # (auto) 0.03 K/uL (0.01-0.20); Immature Granulocytes % (auto) 0.6 %; Lymphocytes # (auto) 0.72 K/uL (1.20-3.40); Lymphocytes % (auto) 15.3 %; Mean Corpuscular Hemoglobin 32.8 pg (25.0-34.0); Mean Corpuscular Hgb Conc 32.6 g/dL (32.0-36.0); Mean Corpuscular Volume 100.3 fL (80.0-100.0); Mean Platelet Volume 10.7 fL (9.4-12.4); Monocytes # (auto) 0.35 K/uL (0.11-0.59); Monocytes % (auto) 7.4 %; Neutrophils # (auto) 3.51 K/uL (1.40-6.50); Neutrophils % (auto) 74.4 %; Platelet Count 98 K/uL (130-400); Red Blood Count 2.87 M/uL (4.20-5.40); White Blood Count 4.72 K/ul (4.8-10.8)
--- NOTE | 2023-12-06 18:21 | XRay Report ---
XR chest 1V portable CLINICAL HISTORY: sob TECHNIQUE: Single frontal radiograph of the chest was obtained. Comparison: Comparison is made to chest radiograph 11/14/2023 FINDINGS: Vascular stent is again seen in the left subclavian vein. Cardiomegaly is noted. Prominence and cepha lization of the vasculature is seen. No evidence of pleural effusion or pneumothorax. IMPRESSION: Cardiomegaly and mild pulmonary edema. ACT 112: Negative or not required by law. Electronically signed by: Mario Holliday M.D. 12/06/2023 6:20 PM
[2023-12-06 18:24] LABS: Albumin Globulin Ratio 1.5 (0.9-2); Albumin Level 4.1 gm/dl (3.4-5.0); BUN Creatinine Ratio 6.1 (10-20); Bilirubin,Total 0.7 mg/dl (0.2-1.0); Calcium 10.2 mg/dl (8.6-10.3); Creatinine Clr Calc Pharmacy 6.8 ml/min; Est GFR (African American) 4.4 ml/min; Est GFR (Non-African American) 3.8 ml/min; Globulin 2.8 gm/dl (2.5-4.0); Magnesium 2.8 mg/dl (1.7-2.4); Phosphorus 7.7 mg/dl (2.5-4.9); Potassium 4.3 mmol/L (3.5-5.1); Total Protein 6.9 gm/dl (6.0-8.3)
[2023-12-06 18:26] LABS: INR 1.1 (0.9-1.1); Partial Thromboplastin Ratio 0.8; Partial Thromboplastin Time 22 Seconds (21-31); Prothrombin Time 11.9 Seconds (9.0-12.0)
[2023-12-06 18:29] LABS: Thyroid Stimulating Hormone 1.733 uIu/ml (0.300-4.500)
[2023-12-06] MEDS ORDERED: ALBUTEROL 0.083% NEBU SOLN 3 ML VIAL INH PRN (21:33)
[2023-12-06] MEDS ORDERED: hydrOXYzine HCl 25 MG TAB PO PRN (21:33)
[2023-12-06] MEDS ORDERED: NITROGLYCERIN SL 0.4 MG/TAB TAB SL PRN (21:33)
[2023-12-06] MEDS ORDERED: BENZONATATE 100 MG CAPSULE PO PRN (21:33)
[2023-12-06] MEDS ORDERED: LABETALOL HCL IV 5 MG/ML 20ML IV PRN (21:33)
[2023-12-06] MEDS ORDERED: LORazepam 0.5 MG TAB PO PRN (21:33)
[2023-12-06] MEDS ORDERED: ALBUTEROL HFA 8 GM INHALER INH PRN (21:33)
[2023-12-06] MEDS: carBAMazepine 200 MG TABLET PO SCH (22:46)
[2023-12-06] MEDS: carvediloL 6.25 MG TAB PO SCH (22:46)
[2023-12-06] MEDS: GABAPENTIN 400 MG CAP PO SCH (22:47)
--- NOTE | 2023-12-07 05:23 | History & Physical Report ---
Date of Service December 06, 2023 Assessment & Plan (1) Non-compliance: Plan: 38-year-old female with PMH DM type II diet-controlled, ESRD on HD MWF (history of failed renal transplant), HTN, depression and anxiety, bipolar disorder, GERD, history of DVT and PE no longer on anticoagulation, medical noncompliance, history of pelvic fracture, chronic anemia, history of migraine, ongoing tobacco abuse, chronic polyp/diverticulosis presents with missing dialysis for whole 1 week. Patient was in the ER yesterday because of some questionable hallucinations seems from increased stress and decreased sleep last couple of days as result of breaking up with her boyfriend. Seems that her boyfriend kicked out of the house that she is currently staying at the hotel.She did okay in the ER and wanted to discharge to keep up her dialysis appointment. Seems she missed her dialysis and comes back today. Patient is tearful. Depressed. Answering some questions appropriately but intermittently somewhat confused. Denies any headache. Denies chest pain. Denies shortness of breath. Denies nausea. Denies abdominal pain. States bowel movements are watery. Appetite is down. No fevers. Complains of chronic pelvic pain. Requesting pain medication. Hemodynamics are okay. States she has no place to go. Asking about her children. Could not tell current dates. Noncompliance Missed dialysis whole 1 week History of missing dialysis Creatinine 11.9 Potassium 4.3 Saturating okay Plan for dialysis in a.m. Nephrology consult Close monitoring telemetry Confusion Mostly metabolic encephalopathy from missing dialysis Will monitor Depression She has no place to go as she broke up with her boyfriend Psych consult Social service to help with discharge planning History of depression anxiety and bipolar disorder Continue home medications Prolonged QTc QTc 512 Will hold hydroxyzine and trazodone Follow repeat EKG Avoid QT prolonging drugs Diabetes Diet controlled Will monitor Hypertension On Coreg Will monitor GERD Omeprazole Tobacco abuse Needs counseling Anemia of chronic disease Around baseline Thrombocytopenia Seems chronic Platelets 98 Will monitor Chronic pain On gabapentin DVT prophylaxis SCDs for now Disposition Telemetry Full code History of Present Illness Chief Complaint: Missed Dialysis, depression and confusion Primary Care Provider: Adolph Aldridge MD 38-year-old female with PMH DM type II diet-controlled, ESRD on HD MWF (history of failed renal transplant), HTN, depression and anxiety, bipolar disorder, GERD, history of DVT and PE no longer on anticoagulation, medical noncompliance, history of pelvic fracture, chronic anemia, history of migraine, ongoing tobacco abuse, chronic polyp/diverticulosis presents with missing dialysis for whole 1 week. Patient was in the ER yesterday because of some questionable hallucinations seems from increased stress and decreased sleep last couple of days as result of breaking up with her boyfriend. Seems that her boyfriend kicked out of the house that she is currently staying at the hotel.She did okay in the ER and wanted to discharge to keep up her dialysis appointment. Seems she missed her dialysis and comes back today. Patient is tearful. Depressed. Answering some questions appropriately but intermittently somewhat confused. Denies any headache. Denies chest pain. Denies shortness of breath. Denies nausea. Denies abdominal pain. States bowel movements are watery. Appetite is down. No fevers. Complains of chronic pelvic pain. Requesting pain medication. Hemodynamics are okay. States she has no place to go. Asking about her children. Could not tell current dates. Past medical history. As mentioned above Past surgical history. AV access. . Colonoscopy. Cystoscopy and EGD. Knee arthroscopy. Laparoscopic cholecystectomy. Ligation of oviducts. Renal biopsy. Left mechanical venous thrombectomy. Transplantation of kidney. Social history. Smokes currently 3 cigarettes daily. No alcohol use. No drug use. Family history. Mother had diabetes. Hypothyroidism. Sister has hypothyroidism. Father had depression. Chron's disease. Allergies Allergy/AdvReac Type Severity Reaction Status Date / Time cefaclor Allergy Intermediate Rash Verified 11/14/23 16:49 Cephalosporins Allergy Intermediate Rash Verified 11/14/23 16:49 amoxicillin AdvReac Intermediate VOMITING Verified 11/14/23 16:49 clavulanic acid AdvReac Intermediate VOMITING Verified 11/14/23 16:49 Home Medications Medication Instructions Recorded Confirmed Type albuterol sulfate 2.5 mg/3 mL 2.5 mg inhalation Q4H PRN 06/08/23 12/06/23 History (0.083 %) solution for nebulization Shortness Of Breath Or Wheezing albuterol sulfate 90 mcg/actuation 2 puff inhalation Q6H PRN 06/08/23 12/06/23 History aerosol inhaler Shortness Of Breath Or Wheezing carbamazepine 200 mg tablet 200 mg PO AMPM 06/08/23 12/06/23 History gabapentin 400 mg capsule 400 mg PO TID 06/08/23 12/06/23 History hydroxyzine HCl 25 mg tablet 25 mg PO Q6H PRN Anxiety 06/08/23 12/06/23 History lorazepam 0.5 mg tablet 0.5 mg PO Q8 PRN Anxiety 06/08/23 12/06/23 History mometasone-formoterol HFA 200 2 puff inhalation BID 06/08/23 12/06/23 History mcg-5 mcg/actuation aerosol inhaler (Dulera) omeprazole 20 mg capsule,delayed 20 mg PO DAILYBB 06/08/23 12/06/23 History release sertraline 100 mg tablet 100 mg PO DAILY 06/08/23 12/06/23 History vitamin B complex-vitamin C-folic 1 tab PO DAILY 06/08/23 12/06/23 History acid 0.8 mg tablet (Renal-Rika) benzonatate 100 mg capsule 200 mg PO TID PRN Cough 08/29/23 12/06/23 History calcium acetate(phosphat bind) 667 2,001 mg PO TIDM 08/29/23 12/06/23 History mg capsule cinacalcet 90 mg tablet 90 mg PO QDD 08/29/23 12/06/23 History medroxyprogesterone 150 mg/mL 150 mg IM .EVERY 3 MONTHS 08/29/23 12/06/23 History intramuscular suspension (Depo-Provera) sertraline 50 mg tablet 50 mg PO QAM 08/29/23 12/06/23 History trazodone 100 mg tablet 200 mg PO HS 08/29/23 12/06/23 History carvedilol 6.25 mg tablet 6.25 mg PO BID 11/14/23 12/06/23 History Past Med/Surg History Medical History Abnormal chest xray Elevated lactic acid level Transaminitis Pneumonia Metabolic encephalopathy Acute non-ST elevation myocardial infarction (NSTEMI) Pulmonary edema Acute hyperkalemia Acute alteration in mental status Renal failure (ARF), acute on chronic Encephalopathy Rectal bleeding reason for up coming colonoscopy Facial fracture Thrombocytopenia Depression with anxiety Anemia of chronic disease Status post fall last fall November 2022 > nasal fx / knee pain, no surgery for either injury > resolved per pt report GI bleed ESRD (end stage renal disease) on dialysis Symptomatic anemia Tobacco abuse DVT prophylaxis Fistula right arm (currently being used) and left arm Dialysis patient SATURDAY/SAT/SATURDAY AT [facility] GERD (gastroesophageal reflux disease) Bipolar disorder Restless leg syndrome Peripheral neuropathy Prolonged QT interval no cardio Asthma rare res inh use History of abnormal cervical Papanicolaou smear Elevated troponin Anemia due to end stage renal disease Acute electrocardiogram changes HTN (hypertension) DM2 (diabetes mellitus, type 2) diet controlled no meds FSGS (focal segmental glomerulosclerosis) DX INITIALLY 2012 (CAUSING ESRD 2012) Surgical History History of surgery left arm d/t clot in arm from AV fistula use @ [facility] History of surgery (~09/09/20) perm cath > since removed History of colonoscopy Kidney transplant recipient 2013 AT [facility] History of tooth extraction three TOOTH History of cardiac cath 2016 NO STENTS AVF (arteriovenous fistula) bilat upper arms ---currently using right for dialysis H/O hernia repair ABDOMINAL WALL History of cholecystectomy H/O eye surgery LASER SURGERY LEFT H/O tubal ligation H/O: X 2 H/O knee surgery LEFT KNEE X 2 Family History Grandmother Hx of CABG Mother Diabetes Father Crohn's disease Grandfather (Maternal) Diabetes Uncle Diabetes Grandmother (Maternal) Family history of reaction to anesthesia difficulty waking with colonoscopy Social History Smoking Status: Current every day smoker Tobacco Type: Cigarettes Cigarettes Per Day: 20; Second Hand Exposure: No; Do You Dip or Chew Tobacco: No; Hx Alcohol Use: No Hx Substance Use: Yes Substance Use Type Other:: medical marijuana at HS Preferred Language: Kinyarwanda Communication Ability: Effective Media Director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 Beliefs That Will Affect Care: None marital status: Single Current Living Situation: Homeless Current Living Situation Comment: boyfriend recently kicked patient out of house pt reports How many Children do You have: 3 Feels Safe at Home: Yes Safety Concerns: Feels Safe At This Time Assistive Devices: None Review of Systems Review of Systems: All systems reviewed & are unremarkable except as noted in HPI & below Physical Exam Physical Exam: General-Not in distress Head- atraumatic Eyes- PERRL. ENT- oropharynx clear Neck- supple, no JVD. Lungs- clear to auscultation no wheezing or crackles Heart- regular rate and rhythm; no murmur, no gallop. Abdomen- normal bowel sounds, soft, nontender, no distension Extremities- no pretibial edema, no erythema Neuro- alert, oriented x 2; PERRL, no facial palsy; no dysarthria; moves extremities. obeys simple commands Results & Data Results & Data Vital Signs (Past 12 Hours) Vital Signs Temp Pulse Resp BP Pulse Ox O2 Del Method 12/06/23 19:45 168/110 H 12/06/23 19:44 95 H 18 12/06/23 19:40 93 H 16 12/06/23 19:30 94 H 13 12/06/23 19:20 88 12 12/06/23 19:10 94 H 19 12/06/23 19:00 90 23 12/06/23 18:50 91 H 20 12/06/23 18:40 93 H 12 12/06/23 18:30 97 H 24 12/06/23 18:20 93 H 19 12/06/23 18:10 94 H 20 12/06/23 18:00 92 H 24 12/06/23 17:50 91 H 21 12/06/23 17:40 94 H 18 12/06/23 17:30 95 H 14 12/06/23 17:26 94 H 12/06/23 17:25 93 H 15 12/06/23 14:45 36.8 C 92 H 20 161/82 H 98 Room Air Diagnostic Findings Laboratory Results WBC 4.72 K/ul (4.8-10.8) L 12/06/23 17:30 RBC 2.87 M/uL (4.20-5.40) L 12/06/23 17:30 Hgb 9.4 g/dl (12.0-16.0) L 12/06/23 17:30 Hct 28.8 % (37.0-47.0) L 12/06/23 17:30 MCV 100.3 fL (80.0-100.0) H 12/06/23 17:30 MCH 32.8 pg (25.0-34.0) 12/06/23 17:30 MCHC 32.6 g/dL (32.0-36.0) 12/06/23 17:30 RDW Std Deviation 62.0 fL (36.4-46.3) H 12/06/23 17: RDW Coeff of Laith 17.0 % (11.5-14.5) H 12/06/23 17:30 Plt Count 98 K/uL (130-400) L 12/06/23 17:30 MPV 10.7 fL (9.4-12.4) 12/06/23 17:30 Immature Gran % (Auto) 0.6 % 12/06/23 17:30 Neut % (Auto) 74.4 % 12/06/23 17:30 Lymph % (Auto) 15.3 % 12/06/23 17:30 [place] % (Auto) 7.4 % 12/06/23 17:30 Eos % (Auto) 1.7 % 12/06/23 17:30 Baso % (Auto) 0.6 % 12/06/23 17:30 Neut # (Auto) 3.51 K/uL (1.40-6.50) 12/06/23 17:30 Lymph # (Auto) 0.72 K/uL (1.20-3.40) L 12/06/23 17:30 [place] # (Auto) 0.35 K/uL (0.11-0.59) 12/06/23 17:30 Eos # (Auto) 0.08 K/uL (0.00-0.50) 12/06/23 17:30 Baso # (Auto) 0.03 K/uL (0.00-0.20) 12/06/23 17:30 Immature Gran # (Auto) 0.03 K/uL (0.01-0.20) 12/06/23 17:30 PT 11.9 Seconds (9.0-12.0) 12/06/23 17:30 INR 1.1 (0.9-1.1) 12/06/23 17:30 APTT 22 Seconds (21-31) 12/06/23 17:30 PTT Ratio 0.8 12/06/23 17:30 Sodium 138 mmol/L (136-145) 12/06/23 17: Potassium 4.3 mmol/L (3.5-5.1) 12/06/23 17:30 Chloride 89 mmol/L (98-107) L 12/06/23 17:30 Carbon Dioxide 28 mmol/L (21-32) 12/06/23 17:30 Anion Gap 21 (3-11) H 12/06/23 17:30 BUN 69 mg/dl (6-23) H 12/06/23 17:30 Creatinine 11.29 mg/dl (0.6-1.2) H* D 12/06/23 17:30 Est Cr Clr Drug Dosing 6.8 ml/min 12/06/23 17:30 Est GFR ( Amer) 4.4 ml/min 12/06/23 17:30 Est GFR (Non-Af Amer) 3.8 ml/min 12/06/23 17:30 BUN/Creatinine Ratio 6.1 (10-20) L 12/06/23 17:30 Glucose 94 mg/dl (70-99(Fasting)) 12/06/23 17:30 Calcium 10.2 mg/dl (8.6-10.3) 12/06/23 17:30 Phosphorus 7.7 mg/dl (2.5-4.9) H 12/06/23 17:30 Magnesium 2.8 mg/dl (1.7-2.4) H 12/06/23 17:30 Total Bilirubin 0.7 mg/dl (0.2-1.0) 12/06/23 17:30 AST 22 U/L (13-39) 12/06/23 17:30 ALT 17 U/L (7-52) 12/06/23 17:30 Alkaline Phosphatase 81 U/L (34-104) 12/06/23 17:30 Total Protein 6.9 gm/dl (6.0-8.3) 12/06/23 17:30 Albumin 4.1 gm/dl (3.4-5.0) 12/06/23 17:30 Globulin 2.8 gm/dl (2.5-4.0) 12/06/23 17:30 Albumin/Globulin Ratio 1.5 (0.9-2) 12/06/23 17:30 TSH 1.733 uIu/ml (0.300-4.500) 12/06/23 17:30 Nasal Screen MRSA (PCR) Negative (Negative) 12/06/23 Unknown Impressions Chest X-Ray 12/06/23 17:03 XR chest 1V portable CLINICAL HISTORY: sob TECHNIQUE: Single frontal radiograph of the chest was obtained. Comparison: Comparison is made to chest radiograph 11/14/2023 FINDINGS: Vascular stent is again seen in the left subclavian vein. Cardiomegaly is noted. Prominence and cephalization of the vasculature is seen. No evidence of pleural effusion or pneumothorax. IMPRESSION: Cardiomegaly and mild pulmonary edema. ACT 112: Negative or not required by law. Electronically signed by: Mario Holliday M.D. 12/06/2023 6:20 PM ECG Additional Comments: ECG. Normal sinus rhythm with a rate of 93. Left anterior fascicular block. Prolonged QTc of 512. Code Status & VTE Plan VTE Prophylaxis Plan VTE Prophylaxis will be ordered: Yes
[2023-12-07] MEDS ORDERED: DEXTROSE 50% 50 ML SYRINGE IV PRN (05:29)
[2023-12-07] MEDS ORDERED: GLUCAGON FOR INJ 1 MG VIAL SQ PRN (05:29)
[2023-12-07] MEDS ORDERED: GLUCOSE 10 TAB/TUBE PO PRN (05:29)
[2023-12-07] MEDS ORDERED: CARBOHYDRATES FOR HYPOGLYCEMIA PO PRN (05:29)
[2023-12-07] MEDS ORDERED: GLUCOSE 40% GEL 15 GM TUBE PO PRN (05:29)
[2023-12-07 06:19] LABS: Calcium 10.2 mg/dl (8.6-10.3); Magnesium 2.8 mg/dl (1.7-2.4); Potassium 4.7 mmol/L (3.5-5.1)
[2023-12-07 06:25] LABS: Creatinine Clr Calc Pharmacy 6.9 ml/min; Est GFR (African American) 4.2 ml/min; Est GFR (Non-African American) 3.6 ml/min
[2023-12-07] MEDS: PANTOprazole 40 MG TAB PO SCH (06:28)
[2023-12-07] MEDS: ACETAMINOPHEN 1,000 MG/100 ML VIAL IV STA ×2 (06:48→07:13)
[2023-12-07] MEDS ORDERED: SODIUM CHLORIDE 0.9% 1,000 ML IV PRN (07:42)
[2023-12-07 07:54] LABS: Basophils # (auto) 0.04 K/uL (0.00-0.20); Basophils % (auto) 0.8 %; Eosinophils # (auto) 0.06 K/uL (0.00-0.50); Eosinophils % (auto) 1.2 %; Hematocrit (blood only) 29.9 % (37.0-47.0); Hemoglobin 9.5 g/dl (12.0-16.0); Immature Granulocytes # (auto) 0.03 K/uL (0.01-0.20); Immature Granulocytes % (auto) 0.6 %; Lymphocytes # (auto) 0.68 K/uL (1.20-3.40); Lymphocytes % (auto) 13.9 %; Mean Corpuscular Hemoglobin 32.3 pg (25.0-34.0); Mean Corpuscular Hgb Conc 31.8 g/dL (32.0-36.0); Mean Corpuscular Volume 101.7 fL (80.0-100.0); Mean Platelet Volume 10.8 fL (9.4-12.4); Monocytes # (auto) 0.43 K/uL (0.11-0.59); Monocytes % (auto) 8.8 %; Neutrophils # (auto) 3.64 K/uL (1.40-6.50); Neutrophils % (auto) 74.7 %; Nucleated RBC # (auto) 0.04 K/uL (0.00-0.12); Nucleated RBC % (auto) 0.8 %; Platelet Count 102 K/uL (130-400); RDW Coefficient of Variation 16.9 % (11.5-14.5); RDW Standard Deviation 62.2 fL (36.4-46.3); Red Blood Count 2.94 M/uL (4.20-5.40); White Blood Count 4.88 K/ul (4.8-10.8)
[2023-12-07] MEDS: CALCIUM ACETATE 667 MG CAP/TAB PO SCH (08:01)
[2023-12-07] MEDS: NEPHROCAPS PO SCH (08:03)
[2023-12-07] MEDS: FLUTICASONE/VILANTEROL 200/25MCG 14 PUFFS/INHALER INH SCH (08:03)
[2023-12-07] MEDS: SERTRALINE HCL 100 MG TABLET PO SCH (08:04)
[2023-12-07] MEDS: SERTRALINE HCL 50 MG TABLET PO SCH (08:04)
[2023-12-07] MEDS: INSULIN ASPART PER UNIT CHARGE SC SCH (08:33)
--- NOTE | 2023-12-07 11:41 | Nephrology Consultation ---
Date of Consultation December 07, 2023 Assessment & Plan (1) ESRD (end stage renal disease) on dialysis: Patient with ESRD on dialysis Saturday using right upper arm AV fistula. She missed dialysis for whole week. She had signs of volume overload. Hemodialysis today for 3 and half hours Target UF 3 L (2) Anemia in ESRD (end-stage renal disease): She has anemia of renal disease. Will give Epogen 10,000 units today with dialysis. (3) Depression with anxiety: Patient with depression and anxiety being exacerbated by homeless situation. Case management should be consulted to help with arranging for subsidized housing. I also suggest patient moving to area with lower cost of living such as [place] since she is on a disability check which is limited. History of Present Illness Reason for Consultation: ESRD Requesting Physician: Arthur Pandey MD Attending Physician: Arthur Pandey MD History of Present Illness 38-year-old female with PMH DM type II diet-controlled, ESRD on HD MWF (history of failed renal transplant), HTN, depression and anxiety, bipolar disorder, GERD, history of DVT and PE no longer on anticoagulation, history of pelvic fracture, chronic anemia, history of migraine, ongoing tobacco abuse who was admitted yesterday after missing dialysis for whole week. Boyfriend broke up with the patient and she is now homeless. This is giving her a lot of anxiety. She has a 19-year-old son who lives in [place] but does not want to live with her. Her young son who is 12 years old lives with the grandfather. Patient has no relatives who can help. She is complaining of hip pain. She has mild shortness of breath. Legs are not swollen. She has itchy skin rash. Labs and imaging were reviewed. Allergies Allergy/AdvReac Type Severity Reaction Status Date / Time cefaclor Allergy Intermediate Rash Verified 11/14/23 16:49 Cephalosporins Allergy Intermediate Rash Verified 11/14/23 16:49 amoxicillin AdvReac Intermediate VOMITING Verified 11/14/23 16:49 clavulanic acid AdvReac Intermediate VOMITING Verified 11/14/23 16:49 Home Medications Medication Instructions Recorded Confirmed Type albuterol sulfate 2.5 mg/3 mL 2.5 mg inhalation Q4H PRN 06/08/23 12/06/23 History (0.083 %) solution for nebulization Shortness Of Breath Or Wheezing albuterol sulfate 90 mcg/actuation 2 puff inhalation Q6H PRN 06/08/23 12/06/23 History aerosol inhaler Shortness Of Breath Or Wheezing carbamazepine 200 mg tablet 200 mg PO AMPM 06/08/23 12/06/23 History gabapentin 400 mg capsule 400 mg PO TID 06/08/23 12/06/23 History hydroxyzine HCl 25 mg tablet 25 mg PO Q6H PRN Anxiety 06/08/23 12/06/23 History lorazepam 0.5 mg tablet 0.5 mg PO Q8 PRN Anxiety 06/08/23 12/06/23 History mometasone-formoterol HFA 200 2 puff inhalation BID 06/08/23 12/06/23 History mcg-5 mcg/actuation aerosol inhaler (Dulera) omeprazole 20 mg capsule,delayed 20 mg PO DAILYBB 06/08/23 12/06/23 History release sertraline 100 mg tablet 100 mg PO DAILY 06/08/23 12/06/23 History vitamin B complex-vitamin C-folic 1 tab PO DAILY 06/08/23 12/06/23 History acid 0.8 mg tablet (Renal-Rika) benzonatate 100 mg capsule 200 mg PO TID PRN Cough 08/29/23 12/06/23 History calcium acetate(phosphat bind) 667 2,001 mg PO TIDM 08/29/23 12/06/23 History mg capsule cinacalcet 90 mg tablet 90 mg PO QDD 08/29/23 12/06/23 History medroxyprogesterone 150 mg/mL 150 mg IM .EVERY 3 MONTHS 08/29/23 12/06/23 History intramuscular suspension (Depo-Provera) sertraline 50 mg tablet 50 mg PO QAM 08/29/23 12/06/23 History trazodone 100 mg tablet 200 mg PO HS 08/29/23 12/06/23 History carvedilol 6.25 mg tablet 6.25 mg PO BID 11/14/23 12/06/23 History Patient History Medical History Abnormal chest xray Elevated lactic acid level Transaminitis Pneumonia Metabolic encephalopathy Acute non-ST elevation myocardial infarction (NSTEMI) Pulmonary edema Acute hyperkalemia Acute alteration in mental status Renal failure (ARF), acute on chronic Encephalopathy Rectal bleeding reason for up coming colonoscopy Facial fracture Thrombocytopenia Depression with anxiety Anemia of chronic disease Status post fall last fall November 2022 > nasal fx / knee pain, no surgery for either injury > resolved per pt report GI bleed ESRD (end stage renal disease) on dialysis Symptomatic anemia Tobacco abuse DVT prophylaxis Fistula right arm (currently being used) and left arm Dialysis patient SATURDAY/SAT/SATURDAY AT [facility] GERD (gastroesophageal reflux disease) Bipolar disorder Restless leg syndrome Peripheral neuropathy Prolonged QT interval no cardio Asthma rare res inh use History of abnormal cervical Papanicolaou smear Elevated troponin Anemia due to end stage renal disease Acute electrocardiogram changes HTN (hypertension) DM2 (diabetes mellitus, type 2) diet controlled no meds FSGS (focal segmental glomerulosclerosis) DX INITIALLY 2012 (CAUSING ESRD 2012) Surgical History History of surgery left arm d/t clot in arm from AV fistula use @ [facility] History of surgery (~09/09/20) perm cath > since removed History of colonoscopy Kidney transplant recipient 2013 AT [facility] History of tooth extraction three TOOTH History of cardiac cath 2016 NO STENTS AVF (arteriovenous fistula) bilat upper arms ---currently using right for dialysis H/O hernia repair ABDOMINAL WALL History of cholecystectomy H/O eye surgery LASER SURGERY LEFT H/O tubal ligation H/O: X 2 H/O knee surgery LEFT KNEE X 2 Family History Grandmother Hx of CABG Mother Diabetes Father Crohn's disease Grandfather (Maternal) Diabetes Uncle Diabetes Grandmother (Maternal) Family history of reaction to anesthesia difficulty waking with colonoscopy Social History Smoking Status: Current every day smoker Tobacco Type: Cigarettes Cigarettes Per Day: 20; Second Hand Exposure: No; Do You Dip or Chew Tobacco: No; Hx Alcohol Use: No Hx Substance Use: Yes Substance Use Type Other:: medical marijuana at Preferred Language: Romanian Communication Ability: Effective Outsole Cementer Machine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 Beliefs That Will Affect Care: None marital status: Single Current Living Situation: Homeless Current Living Situation Comment: boyfriend recently kicked patient out of house pt reports How many Children do You have: 3 Feels Safe at Home: Yes Safety Concerns: Feels Safe At This Time Assistive Devices: None Review of Systems 2 Review of Systems: All other systems were reviewed and negative except as noted in HPI Physical Exam 2 Physical Exam: General exam: Appears comfortable, no acute distress HEENT: Pupils are equal and reactive to light Neck: No JVD, neck is supple trachea is midline Respiratory system: Clear breath sounds bilaterally. Gastrointestinal: Abdomen is soft, non distended, non tender, bowel sounds are present CVS: Regular rate and rhythm. No murmurs, rubs or gallops Musculoskeletal: No joint or muscle tenderness Extremities: Non tender, no edema, peripheral pulses are present Neuro: Oriented, no tremors, no focal neurological deficits Skin: No rashes Results & Data Vital Signs (Past 12 Hours) Vital Signs Temp Pulse Pulse Resp BP Pulse Ox O2 Del Method 12/07/23 07:46 36.3 C L 86 19 108/65 97 Room Air 12/07/23 07:28 87 12/07/23 03:00 36.3 C L 88 21 154/89 H 96 Room Air Laboratory Results 12/07/23 05:34 12/06/23 12/07/23 12/07/23 17:30 05:34 07:13 WBC 4.72 L Cancelled 4.88 RBC 2.87 L Cancelled 2.94 L MCV 100.3 H Cancelled 101.7 H MCH 32.8 Cancelled 32.3 MCHC 32.6 Cancelled 31.8 L RDW Std Deviation 62.0 H Cancelled 62.2 H RDW Coeff of Laith 17.0 H Cancelled 16.9 H Plt Count 98 L Cancelled 102 L MPV 10.7 Cancelled 10.8 Nucleated RBC % Cancelled Phosphorus 7.7 H Albumin 4.1
--- NOTE | 2023-12-07 11:55 | Hospitalist Progress Note ---
Date of Service December 07, 2023 Assessment & Plan (1) Non-compliance: Plan: 38-year-old female with PMH DM type II diet-controlled, ESRD on HD MWF (history of failed renal transplant), HTN, depression and anxiety, bipolar disorder, GERD, history of DVT and PE no longer on anticoagulation, medical noncompliance, history of pelvic fracture, chronic anemia, history of migraine, ongoing tobacco abuse, chronic polyp/diverticulosis presents with missing dialysis for whole 1 week. Noncompliance Missed hemodialysis sessions Pulmonary edema secondary to missed hemodialysis History of ESRD on hemodialysis Saturday with history of noncompliance Presents after missing 3 sessions of dialysis and possible hallucination Creatinine BUN elevated to 11.7/70 Bicarb of 23, anion gap of 23 Potassium 4.7 Chest x-ray pulsatile reviewed; consistent with venous congestion Plan for dialysis as per nephrology today with 3 L of ultrafiltrate Continue to monitor BMP Metabolic encephalopathy secondary to missed hemodialysis session Patient appears to be alert oriented x 3 today Continue to monitor Depression Reports breaking up with her boyfriend and is presently homeless Psych consult Social service to help with discharge planning History of depression anxiety and bipolar disorder Continue home medications Prolonged QTc QTc 512 Will hold hydroxyzine and trazodone Repeat EKG in a.m. Avoid QT prolonging drugs Type II diabetes Diet controlled Will monitor Hypertension On Coreg Will monitor GERD Omeprazole Tobacco abuse Needs counseling Anemia of chronic disease Around baseline Thrombocytopenia Seems chronic Platelets 98 Will monitor Chronic pain On gabapentin DVT prophylaxis SCDs for now Disposition Telemetry Full code Time spent evaluating patient, direct bedside care, chart review, placing orders, interpretation of diagnostic studies, discussion with consultants, patient, and family members, as well as other required patient management activities is 50 minutes. Please note the above document was generated using voice recognition software. It may contain grammatical, syntax or spelling errors. Any formal questions or concerns about the content, text or information contained within the body of this dictation should be directly addressed to the provider for clarification Admission and Anticipated Discharge Date Admission Date: December 06, 2023 Subjective Patient seen and examined at bedside. She is ambulating well in the room Denies any chest pain or shortness of breath. Review of Systems Review of Systems: All systems reviewed & are unremarkable except as noted in Subjective Physical Exam Physical Exam: Constitutional: WD/WN, vitals as above, NAD, sitting up in bed, pleasant, conversing easily Respiratory: normal respiratory effort, lungs clear to auscultation, no wheeze, rales, rhonchi. Normal insp/exp effort, no accessory muscle use Cardiovascular: RRR, no murmur, no edema Vessels: no JVD or carotid bruit Chest: normal inspection of chest Abdomen: normal bowel sounds, soft, nontender, no hepatosplenomegaly Musculoskeletal: no cyanosis or clubbing, extremities motor strength 5/5. Upper extremity AV graft Skin: no rashes, warm and dry normal turgor Neurologic: PERRL, EOMI, accommodation nl, no face palsy, no dysarthria CN's II- XI intact bilaterally and moves all extremities Psychiatric: A+Ox3, euthymic affect Results & Data Results & Data Vital Signs (Past 12 Hours) Vital Signs Temp Pulse Pulse Resp BP Pulse Ox O2 Del Method 12/07/23 07:46 36.3 C L 86 19 108/65 97 Room Air 12/07/23 07:28 87 12/07/23 03:00 36.3 C L 88 21 154/89 H 96 Room Air
--- NOTE | 2023-12-07 12:08 | Electrocardiogram Report ---
Test Reason : Blood Pressure : / mmHG Vent. Rate : 093 BPM Atrial Rate : 093 BPM P-R Int : 150 ms QRS Dur : 104 ms QT Int : 412 ms P-R-T Axes : 058 -48 031 degrees QTc Int : 512 ms Normal sinus rhythm Left anterior fascicular block Minimal voltage criteria for LVH, may be normal variant Possible Anterolateral infarct (cited on or before 12-MAY-2023) Prolonged QT Abnormal ECG When compared with ECG of 15-NOV-2023 13:36, Left anterior fascicular block is now Present ST no longer depressed in Lateral leads Confirmed by Dash Tejada ([id number]) on 12/07/2023 12:07:56 PM Referred By: Adolph Aldridge Confirmed By:Dash Tejada
--- NOTE | 2023-12-07 12:17 | Electrocardiogram Report ---
Test Reason : Blood Pressure : / mmHG Vent. Rate : 086 BPM Atrial Rate : 086 BPM P-R Int : 150 ms QRS Dur : 110 ms QT Int : 444 ms P-R-T Axes : 050 -33 011 degrees QTc Int : 531 ms Normal sinus rhythm Possible Left atrial enlargement Left axis deviation Left ventricular hypertrophy Poor R wave progression, consider anterior SC vs. lead placement vs. LVH Prolonged QT Abnormal ECG When compared with ECG of 06-DEC-2023 17:14, (unconfirmed) No significant change was found Confirmed by Dash Tejada ([id number]) on 12/07/2023 12:16:37 PM Referred By: Adolph Aldridge Confirmed By:Dash Tejada
[2023-12-07] MEDS: hydrOXYzine HCl 10 MG TAB PO ONE (13:07)
--- NOTE | 2023-12-07 13:27 | Psychiatric Consultation ---
Date of Consultation December 07, 2023 Impression / Recommendations Impression 38 yo woman with ESRD on diaylsis with history of depression and anxiety admitted for non-adherence to dialysis for the last week and increased mood symptoms in the context of a break-up with her boyfriend of 8 years. Diagnostically consistent with major depressive disorder and unspecified anxiety disorder-seems to be combination of MDD with anxious distress, adjustment disorder with anxious distress due to breakup and situational anxiety from dialysis. Acute risk of harm is low given denial of SI. Chronic risk is moderate to high given multiple non-modifiable risk factors but also with many protective factors. Seems that anxiety is the current largest contributor to her non-adherence with dialysis. Discussed various coping skills and mantras she can use to try to make it to her appointments and get through her dialysis treatments more successfully. She would like to try mirtazapine as an additional augmentation for depression and anxiety. Overall, I spent a total of 70 minutes on this case including meeting with the patient, reviewing the chart, nursing report, multidisciplinary team meeting, orders, and documentation. (1) Anxiety disorder, unspecified: (2) Depression: Depression Type: unspecified Qualified Code(s): F32.A - Depression, unspecified (3) ESRD (end stage renal disease) on dialysis: Plan -Continue with prior to admission Ativan 0.5mg TID prn with goal of eventually tapering in outpatient setting. Ideally could eventually get to the point of just using when needed prior to dialysis sessions -Sertraline was increased about two weeks ago to 200mg daily by her outpatient psychiatrist per her report -Start mirtazapine 7.5mg HS tonight for insomnia and poor appetite and for further benefit for depression and anxiety augmentation -In the future, if sertraline is ineffective, would consider use of fluoxetine given long half-life and strong consideration for the fluoxetine DR once a week formulation as she tends to have a hard time remembering to take her medications every day -For dialysis would explore options to decrease anxiety such as trial of a weighted blanket or essential oils or guided meditation/positive imagery to help reduce anxiety and improve adherence in addition to her current coping skills of sleeping, listening to music and wearing an eye mask -Also would encourage her to work with her CM to explore options for building a reward menu after going to dialysis such as watching a favorite TV show afterwards, painting her nails, getting new stickers for her bullet journal, having a favorite snack or other rewarding activities Psych History Identifying Data 38 yo woman with history of ESRD on dialysis, depression and anxiety admitted medically for ESRD with recent non-adherence with dialysis over the last week. Psychiatry consulted for depression. Chief Complaint "It's the anxiety and now I have no place to live". History of Present Illness Alexandra reports main concerns of anxiety, lack of housing and pain that is not relieved by Tylenol. She reports that her boyfriend left her on Saturday and she had to move out of his home, and she experienced a hallucination on the same day, which she attributes to high anxiety levels. Describes history of visual and auditory hallucinations of seeing people in the house and hearing them talk. Denies any history of accusatory or mean voices and has always been able to tell them apart as hallucinations. She has been using THC gummies that her ex- boyfriend got for her that helped a lot with pain, appetite and sleep. She acknowledges it is possible these contribute to her hallucinations. She admits to missing several dialysis sessions recently, attributing this to depression and mostly anxiety. She experiences anxiety during dialysis sessions, feeling claustrophobic and uncomfortable with the needles and blood pressure cuff. She uses music and covering her eyes to cope with the anxiety during treatment. She has a history of FSGS and is currently on dialysis three times a week after depression impacting her adherence with anti-rejection medications after recieving a transplanted kidney. Reports she has guilt about this and that it occurred in context of stress of having little time with her children due to a custody agreement. She also reports history of a head injury last summer, after which she has not been feeling right, feels as though her concentration is worse. She is currently taking Zoloft for depression and anxiety, which was recently increased from 150 mg to 200 mg by her psychiatrist, Dr. Berger two weeks ago. She has been using an old prescription to continue taking the medication until she can obtain a new one as we discussed that I did not see her having filled this medication since August 2023. She denies any suicidal thoughts currently and that she would never do this due to impact her father's by suicide had on her. States her sons are strong deterrents to suicide. Does acknowledge that when depressed she sometimes struggles to attend dialysis sessions. She reports a broken pelvis from a fall in July, which causes her significant pain, especially when lying on the hospital bed. She also reports changes in sleep, appetite, motivation, and energy levels due to her depression and anxiety. States she has not eaten all week due to a lack of appetite and struggles with sleep at night, especially since her recent breakup and di scontinuation of THC gummies. Shows her bullet journal which she's been using to try to keep track of her medications, appointments, and fun activities like books and TV shows. Allergies Allergy/AdvReac Type Severity Reaction Status Date / Time cefaclor Allergy Intermediate Rash Verified 11/14/23 16:49 Cephalosporins Allergy Intermediate Rash Verified 11/14/23 16:49 amoxicillin AdvReac Intermediate VOMITING Verified 11/14/23 16:49 clavulanic acid AdvReac Intermediate VOMITING Verified 11/14/23 16:49 Home Medications Medication Instructions Recorded Confirmed Type albuterol sulfate 2.5 mg/3 mL 2.5 mg inhalation Q4H PRN 06/08/23 12/06/23 History (0.083 %) solution for nebulization Shortness Of Breath Or Wheezing albuterol sulfate 90 mcg/actuation 2 puff inhalation Q6H PRN 06/08/23 12/06/23 History aerosol inhaler Shortness Of Breath Or Wheezing carbamazepine 200 mg tablet 200 mg PO AMPM 06/08/23 12/06/23 History gabapentin 400 mg capsule 400 mg PO TID 06/08/23 12/06/23 History hydroxyzine HCl 25 mg tablet 25 mg PO Q6H PRN Anxiety 06/08/23 12/06/23 History lorazepam 0.5 mg tablet 0.5 mg PO Q8 PRN Anxiety 06/08/23 12/06/23 History mometasone-formoterol HFA 200 2 puff inhalation BID 06/08/23 12/06/23 History mcg-5 mcg/actuation aerosol inhaler (Dulera) omeprazole 20 mg capsule,delayed 20 mg PO DAILYBB 06/08/23 12/06/23 History release sertraline 100 mg tablet 100 mg PO DAILY 06/08/23 12/06/23 History vitamin B complex-vitamin C-folic 1 tab PO DAILY 06/08/23 12/06/23 History acid 0.8 mg tablet (Renal-Rika) benzonatate 100 mg capsule 200 mg PO TID PRN Cough 08/29/23 12/06/23 History calcium acetate(phosphat bind) 667 2,001 mg PO TIDM 08/29/23 12/06/23 History mg capsule cinacalcet 90 mg tablet 90 mg PO QDD 08/29/23 12/06/23 History medroxyprogesterone 150 mg/mL 150 mg IM .EVERY 3 MONTHS 08/29/23 12/06/23 History intramuscular suspension (Depo-Provera) sertraline 50 mg tablet 50 mg PO QAM 08/29/23 12/06/23 History trazodone 100 mg tablet 200 mg PO HS 08/29/23 12/06/23 History carvedilol 6.25 mg tablet 6.25 mg PO BID 11/14/23 12/06/23 History Patient History Medical History Abnormal chest xray Elevated lactic acid level Transaminitis Pneumonia Metabolic encephalopathy Acute non-ST elevation myocardial infarction (NSTEMI) Pulmonary edema Acute hyperkalemia Acute alteration in mental status Renal failure (ARF), acute on chronic Encephalopathy Rectal bleeding reason for up coming colonoscopy Facial fracture Thrombocytopenia Depression with anxiety Anemia of chronic disease Status post fall last fall November 2022 > nasal fx / knee pain, no surgery for either injury > resolved per pt report GI bleed ESRD (end stage renal disease) on dialysis Symptomatic anemia Tobacco abuse DVT prophylaxis Fistula right arm (currently being used) and left arm Dialysis patient SATURDAY/SAT/SATURDAY AT [facility] GERD (gastroesophageal reflux disease) Bipolar disorder Restless leg syndrome Peripheral neuropathy Prolonged QT interval no cardio Asthma rare res inh use History of abnormal cervical Papanicolaou smear Elevated troponin Anemia due to end stage renal disease Acute electrocardiogram changes HTN (hypertension) DM2 (diabetes mellitus, type 2) diet controlled no meds FSGS (focal segmental glomerulosclerosis) DX INITIALLY 2012 (CAUSING ESRD 2012) Surgical History History of surgery left arm d/t clot in arm from AV fistula use @ [facility] History of surgery (~09/09/20) perm cath > since removed History of colonoscopy Kidney transplant recipient 2013 AT [facility] History of tooth extraction three TOOTH History of cardiac cath 2017 NO STENTS AVF (arteriovenous fistula) bilat upper arms ---currently using right for dialysis H/O hernia repair ABDOMINAL WALL History of cholecystectomy H/O eye surgery LASER SURGERY LEFT H/O tubal ligation H/O: X 2 H/O knee surgery LEFT KNEE X 2 Family History Grandmother Hx of CABG Mother Diabetes Father Crohn's disease Grandfather (Maternal) Diabetes Uncle Diabetes Grandmother (Maternal) Family history of reaction to anesthesia difficulty waking with colonoscopy Social History Smoking Status: Current every day smoker Tobacco Type: Cigarettes Cigarettes Per Day: 20; Second Hand Exposure: No; Do You Dip or Chew Tobacco: No; Hx Alcohol Use: No Hx Substance Use: Yes Substance Use Type Other:: medical marijuana at HS Preferred Language: Burkinan Communication Ability: Effective Manager Equipment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 Beliefs That Will Affect Care: None marital status: Single Current Living Situation: Homeless Current Living Situation Comment: boyfriend recently kicked patient out of house pt reports How many Children do You have: 3 Feels Safe at Home: Yes Safety Concerns: Feels Safe At This Time Assistive Devices: None Physical Exam Psychiatric: Orientation: alert and oriented x 3 Apperance: appropriately dressed and appropriately groomed Eye Contact: good eye contact Motor Behavior: no abnormal motor movements Speech: normal rate/rhythm/volume of speech Affect: + anxious affect Mood: + depressed mood and + anxious mood Thought Process: goal directed thought process Thought Content: reality based without delusions Suicidal Thoughts: denies suicidal thoughts Homicidal Thoughts: denies homicidal thoughts Hallucinations: no auditory hallucinations and no visual hallucinations Cognition: attention grossly intact and language grossly intact Estimated Intelligence: consistent with education level Insight: + fair insight Judgment: + limited judgement Vital Signs (Past 24 Hours): Last Vital Signs Temp 36.3 C L 12/07/23 10:54 Pulse 78 12/07/23 10:54 Resp 21 12/07/23 10:54 BP 114/65 12/07/23 10:54 Pulse Ox 97 12/07/23 10:54 O2 Del Method Room Air 12/07/23 10:54 Review of Systems All systems reviewed & are unremarkable except as noted in HPI & below Results & Data (PSY) Medications Administered Calcium Acetate (Calcium Acetate 667 Mg Cap/Tab) 2,001 mg PO TIDM NIKKI Stop: 01/06/24 07:59 Last Admin: 12/07/23 12:44 Dose: Not Given Documented By: Admin: 12/07/23 08:08 Dose: Not Given Documented By: LIAN Carbamazepine (Carbamazepine 200 Mg Tablet) 200 mg PO BID NIKKI Stop: 01/05/24 21:32 Last Admin: 12/07/23 08:01 Dose: 200 mg Documented By: Admin: 12/06/23 22:46 Dose: 200 mg Documented By: JUAN Carvedilol (Carvedilol 6.25 Mg Tab) 6.25 mg PO BID NIKKI Stop: 01/05/24 21:32 Last Admin: 12/07/23 09:35 Dose: 6.25 mg Documented By: Admin: 12/06/23 22:46 Dose: 6.25 mg Documented By: JUAN Fluticasone/Vilanterol (Fluticasone/Vilanterol 200/25mcg 14 Puffs/Inhaler) 1 puffs INH DAILY NIKKI Stop: 01/06/24 08:59 Last Admin: 12/07/23 08:03 Dose: Not Given Documented By: LIAN Gabapentin (Gabapentin 400 Mg Cap) 400 mg PO TID NIKKI Stop: 01/05/24 21:32 Last Admin: 12/07/23 13:07 Dose: 400 mg Documented By: Admin: 12/07/23 08:02 Dose: 400 mg Documented By: Admin: 12/06/23 22:47 Dose: 400 mg Documented By: JUAN Insulin Aspart (Insulin Aspart Per Unit Charge) 0 units SC ACHS NIKKI Stop: 01/06/24 07:29 Last Admin: 12/07/23 12:12 Dose: Not Given Documented By: Admin: 12/07/23 08:33 Dose: Not Given Documented By: LIAN Pantoprazole Sodium (Pantoprazole 40 Mg Tab) 40 mg PO DAILYBB NIKKI Stop: 01/06/24 06:29 Last Admin: 12/07/23 06:28 Dose: 40 mg Documented By: JUAN Sertraline HCl (Sertraline Hcl 100 Mg Tablet) 100 mg PO DAILY NIKKI Stop: 01/06/24 08:59 Last Admin: 04/13/24 08:04 Dose: 100 mg Documented By: LIAN Sertraline HCl (Sertraline Hcl 50 Mg Tablet) 50 mg PO DAILY [facility] Stop: 01/06/24 08:59 Last Admin: 12/07/23 08:04 Dose: 50 mg Documented By: LIAN Vitamin B Complex/Folic Acid (Nephrocaps) 1 cap PO DAILY [facility] Stop: 01/06/24 08:59 Last Admin: 12/07/23 08:03 Dose: 1 cap Documented By: LIAN Coding Level of Care Code 36297 IN/OBS CONSULT LVL 4,60M Diagnoses Anxiety disorder, unspecified F41.9 Depression F32.A Depression Type: unspecified ESRD (end stage renal disease) on dialysis N18.6; Z99.2
[2023-12-07] MEDS: LOPERAMIDE HCL 2 MG CAP PO STA (13:32)
[2023-12-07] MEDS: HEPARIN SOD (PORCINE) 1000 UNIT/ML IV ONE (14:17)
[2023-12-07] MEDS: EPOETIN ALFA 10,000 UNITS/ML VIAL IV ONE (16:06)
[2023-12-07] MEDS: CINACALCET HCL 90 MG TAB PO SCH (17:54)
[2023-12-07] MEDS: ACETAMINOPHEN 325 MG TAB PO PRN (17:54)
[2023-12-07] MEDS: MIRTAZAPINE TAB 15 MG TAB PO SCH (20:12)
[2023-12-08] MEDS: ACETAMINOPHEN 1,000 MG/100 ML VIAL IV ONE (05:58)
[2023-12-08 06:35] LABS: Basophils # (auto) 0.04 K/uL (0.00-0.20); Basophils % (auto) 0.8 %; Eosinophils # (auto) 0.06 K/uL (0.00-0.50); Eosinophils % (auto) 1.2 %; Hematocrit (blood only) 31.5 % (37.0-47.0); Hemoglobin 9.9 g/dl (12.0-16.0); Immature Granulocytes # (auto) 0.02 K/uL (0.01-0.20); Immature Granulocytes % (auto) 0.4 %; Lymphocytes # (auto) 1.15 K/uL (1.20-3.40); Lymphocytes % (auto) 22.9 %; Mean Corpuscular Hemoglobin 32.7 pg (25.0-34.0); Mean Corpuscular Hgb Conc 31.4 g/dL (32.0-36.0); Mean Platelet Volume 11.1 fL (9.4-12.4); Monocytes # (auto) 0.53 K/uL (0.11-0.59); Monocytes % (auto) 10.5 %; Neutrophils # (auto) 3.23 K/uL (1.40-6.50); Neutrophils % (auto) 64.2 %; Platelet Count 110 K/uL (130-400); RDW Coefficient of Variation 16.7 % (11.5-14.5); RDW Standard Deviation 62.7 fL (36.4-46.3); Red Blood Count 3.03 M/uL (4.20-5.40); White Blood Count 5.03 K/ul (4.8-10.8)
[2023-12-08 06:52] LABS: BUN Creatinine Ratio 4.9 (10-20); Calcium 10.2 mg/dl (8.6-10.3); Creatinine Clr Calc Pharmacy 11.7 ml/min; Est GFR (African American) 7.9 ml/min; Est GFR (Non-African American) 6.8 ml/min; Potassium 4.2 mmol/L (3.5-5.1)
--- NOTE | 2023-12-08 07:19 | Electrocardiogram Report ---
Test Reason : Blood Pressure : / mmHG Vent. Rate : 078 BPM Atrial Rate : 078 BPM P-R Int : 152 ms QRS Dur : 108 ms QT Int : 450 ms P-R-T Axes : 054 -30 026 degrees QTc Int : 513 ms Poor data quality, interpretation may be adversely affected Normal sinus rhythm Left axis deviation Moderate voltage criteria for LVH, may be normal variant Poor R wave progression, consider anterior [place] vs. lead placement vs. LVH Prolonged QT Abnormal ECG When compared with ECG of 07-DEC-2023 05:50, No significant change was found Confirmed by Daljit Thompson ([id number]) on 12/08/2023 7:19:34 AM Referred By: Adolph Aldridge Confirmed By:Ric Thompson
[2023-12-08] MEDS: SERTRALINE HCL 100 MG TABLET PO SCH (09:15)
--- NOTE | 2023-12-08 11:56 | Hospitalist Progress Note ---
Date of Service December 08, 2023 Assessment & Plan (1) Non-compliance: Plan: 38-year-old female with PMH DM type II diet-controlled, ESRD on HD MWF (history of failed renal transplant), HTN, depression and anxiety, bipolar disorder, GERD, history of DVT and PE no longer on anticoagulation, medical noncompliance, history of pelvic fracture, chronic anemia, history of migraine, ongoing tobacco abuse, chronic polyp/diverticulosis presents with missing dialysis for whole 1 week. Noncompliance Missed hemodialysis sessions Pulmonary edema secondary to missed hemodialysis History of ESRD on hemodialysis Saturday with history of noncompliance Presents after missing 3 sessions of dialysis and possible hallucination Creatinine BUN elevated to 11.7/70 on admission Chest x-ray personally reviewed; consistent with venous congestion Status post dialysis on December 06, 2021 Continue to monitor BMP Dialysis as per nephrology Metabolic encephalopathy secondary to missed hemodialysis session, resolved Possible uremia Patient appears to be alert oriented x 3 today Continue to monitor Depression Reports breaking up with her boyfriend and is presently homeless Discussed with psychiatry; sertraline increased to 200 mg once a day, mirtazapine 7.5 mg at night added. Also continue on Ativan as needed. History of depression anxiety and bipolar disorder Continue home medications Prolonged QTc QTc 512 Continue to hold hydroxyzine and trazodone Repeat EKG in a.m. Avoid QT prolonging drugs Type II diabetes Diet controlled Will monitor Hypertension On Coreg Will monitor GERD Omeprazole Tobacco abuse Needs counseling Anemia of chronic disease Around baseline Thrombocytopenia Seems chronic Platelet count of 110,000 Will monitor Chronic pain On gabapentin DVT prophylaxis Heparin Disposition Telemetry Full code Time spent evaluating patient, direct bedside care, chart review, placing orders, interpretation of diagnostic studies, discussion with consultants, patient, and family members, as well as other required patient management activities is 50 minutes. Please note the above document was generated using voice recognition software. It may contain grammatical, syntax or spelling errors. Any formal questions or concerns about the content, text or information contained within the body of this dictation should be directly addressed to the provider for clarification Admission and Anticipated Discharge Date Admission Date: December 06, 2023 Subjective Patient seen and examined at bedside. She is sleeping comfortably; not in distress. No significant events overnight Review of Systems Review of Systems: All systems reviewed & are unremarkable except as noted in Subjective Physical Exam Physical Exam: Constitutional: Sleeping; awake evaluate voice. Not in distress Respiratory: normal respiratory effort, lungs clear to auscultation, no wheeze, rales, rhonchi. Normal insp/exp effort, no accessory muscle use Cardiovascular: RRR, no murmur, no edema Vessels: no JVD or carotid bruit Chest: normal inspection of chest Abdomen: normal bowel sounds, soft, nontender, no hepatosplenomegaly Musculoskeletal: no cyanosis or clubbing, extremities motor strength 5/5. Upper extremity AV graft Skin: no rashes, warm and dry normal turgor Neurologic: PERRL, EOMI, accommodation nl, no face palsy, no dysarthria CN's II- XI intact bilaterally and moves all extremities Psychiatric: A+Ox3, euthymic affect Results & Data Results & Data Vital Signs (Past 12 Hours) Vital Signs Temp Pulse Pulse Resp BP Pulse Ox O2 Del Method 12/08/23 10:56 36.5 C 74 18 129/69 95 Room Air 12/08/23 07:41 79 12/08/23 07:20 36.7 C 78 18 155/85 H 93 Room Air 12/08/23 03:00 36.6 C 78 16 137/84 97 Room Air
--- NOTE | 2023-12-08 14:11 | Nephrology Progress Note ---
Date of Service December 08, 2023 Assessment & Plan (1) ESRD (end stage renal disease) on dialysis: Plan: Patient with ESRD on dialysis Saturday using right upper arm AV fistula. She missed dialysis for whole week. She had signs of volume overload. Hemodialysis Yesterday for 3 and half hours Target UF 3 L. She will have dialysis tomorrow again for 3 hours target UF 2 L. (2) Anemia in ESRD (end-stage renal disease): Plan: She has anemia of renal disease. Will give Epogen 10,000 units tomorrow with dialysis. (3) Depression with anxiety: Plan: Patient with depression and anxiety being exacerbated by homeless situation. Case management should be consulted to help with arranging for subsidized housing. I also suggest patient moving to area with lower cost of living such as [place] since she is on a disability check which is limited. Admission and Anticipated Discharge Date Admission Date: December 06, 2023 Subjective Seen for ESRD. No shortness of breath. Complains of back pain. Review of Systems 2 Review of Systems: All other systems were reviewed and negative except as noted in HPI Physical Exam 2 Physical Exam: General exam: Appears comfortable, no acute distress HEENT: Pupils are equal and reactive to light Neck: No JVD, neck is supple trachea is midline Respiratory system: Clear breath sounds bilaterally. Gastrointestinal: Abdomen is soft, non distended, non tender, bowel sounds are present CVS: Regular rate and rhythm. No murmurs, rubs or gallops Musculoskeletal: No joint or muscle tenderness Extremities: Non tender, no edema, peripheral pulses are present Neuro: Oriented, no tremors, no focal neurological deficits Skin: No rashes Results & Data Vital Signs (Past 12 Hours) Vital Signs Temp Pulse Pulse Resp BP Pulse Ox O2 Del Method 12/08/23 10:56 36.5 C 74 18 129/69 95 Room Air 12/08/23 07:41 79 12/08/23 07:20 36.7 C 78 18 155/85 H 93 Room Air 12/08/23 03:00 36.6 C 78 16 137/84 97 Room Air Laboratory Results 12/08/23 06:01 12/08/23 06:01 WBC 5.03 RBC 3.03 L MCV 104.0 H MCH 32.7 MCHC 31.4 L RDW Std Deviation 62.7 H RDW Coeff of Laith 16.7 H Plt Count 110 L MPV 11.1
[2023-12-08] MEDS: HEPARIN SOD 5,000 UNIT/0.5 ML VIAL SQ SCH (14:19)
[2023-12-09 01:01] LABS: HBSAG NON-REACTIVE (NON-REACTIVE)
[2023-12-09 06:16] LABS: Basophils # (auto) 0.06 K/uL (0.00-0.20); Basophils % (auto) 1.1 %; Eosinophils # (auto) 0.11 K/uL (0.00-0.50); Eosinophils % (auto) 2.1 %; Hematocrit (blood only) 32.4 % (37.0-47.0); Hemoglobin 10.5 g/dl (12.0-16.0); Immature Granulocytes # (auto) 0.06 K/uL (0.01-0.20); Immature Granulocytes % (auto) 1.1 %; Lymphocytes # (auto) 0.96 K/uL (1.20-3.40); Lymphocytes % (auto) 18.3 %; Mean Corpuscular Hemoglobin 32.8 pg (25.0-34.0); Mean Corpuscular Hgb Conc 32.4 g/dL (32.0-36.0); Mean Corpuscular Volume 101.3 fL (80.0-100.0); Mean Platelet Volume 11.2 fL (9.4-12.4); Monocytes # (auto) 0.57 K/uL (0.11-0.59); Monocytes % (auto) 10.9 %; Neutrophils # (auto) 3.48 K/uL (1.40-6.50); Neutrophils % (auto) 66.5 %; Nucleated RBC # (auto) 0.13 K/uL (0.00-0.12); Nucleated RBC % (auto) 2.5 %; Platelet Count 117 K/uL (130-400); RDW Coefficient of Variation 16.3 % (11.5-14.5); RDW Standard Deviation 59.1 fL (36.4-46.3); White Blood Count 5.24 K/ul (4.8-10.8)
[2023-12-09 06:37] LABS: BUN Creatinine Ratio 5.5 (10-20); Calcium 9.9 mg/dl (8.6-10.3); Creatinine Clr Calc Pharmacy 9.1 ml/min; Est GFR (African American) 6.1 ml/min; Est GFR (Non-African American) 5.2 ml/min; Potassium 4.6 mmol/L (3.5-5.1)
[2023-12-09 06:43] LABS: Ovalocytes 1+; Polychromasia 1+; Tear Drop Cells 1+
[2023-12-09 07:58] LABS: Estimated Average Glucose 114 mg/dl; Hemoglobin A1C 5.6 % (4.5-5.6)
--- NOTE | 2023-12-09 11:39 | Nephrology Progress Note ---
Date of Service December 09, 2023 Assessment & Plan Admission and Anticipated Discharge Date Admission Date: December 06, 2023 Subjective Assessment & Plan (1) ESRD (end stage renal disease) on dialysis: Plan: Patient with ESRD on dialysis Saturday using right upper arm AV fistula. She missed dialysis for whole week. She had signs of volume overload. Hemodialysis Saturday for 3 and half hours Target UF 3 L. She will have dialysis today again for 3 hours target UF 3 L. (2) Anemia in ESRD (end-stage renal disease): Plan: She has anemia of renal disease. Will give Epogen 10,000 units with dialysis. Subjective Seen for ESRD. No shortness of breath. Complains of back pain. Goes to sleep Instantly mid sentence. Review of Systems Review of Systems: All other systems were reviewed and negative except as noted in HPI Physical Exam Physical Exam: General exam: Appears comfortable, no acute distress HEENT: Pupils are equal and reactive to light Neck: No JVD, neck is supple trachea is midline Respiratory system: Clear breath sounds bilaterally. Gastrointestinal: Abdomen is soft, non distended, non tender, bowel sounds are present CVS: Regular rate and rhythm. No murmurs, rubs or gallops Musculoskeletal: No joint or muscle tenderness Extremities: Non tender, no edema, peripheral pulses are present Neuro: Oriented, no tremors, no focal neurological deficits Skin: No rashes Results & Data Vital Signs (Past 12 Hours) Vital Signs Temp Pulse Pulse Pulse Resp BP Pulse Ox 12/09/23 07:26 74 12/09/23 07:10 36.4 C L 64 19 130/78 98 12/09/23 03:59 36.6 C 71 22 116/74 93 O2 Del Method 12/09/23 07:26 12/09/23 07:10 Room Air 12/09/23 03:59 Room Air
[2023-12-09] MEDS: LORazepam 0.5 MG TAB PO PRN (12:04)
--- NOTE | 2023-12-09 14:31 | Hospitalist Progress Note ---
Date of Service December 09, 2023 Assessment & Plan (1) Non-compliance: Plan: 38-year-old female with PMH DM type II diet-controlled, ESRD on HD MWF (history of failed renal transplant), HTN, depression and anxiety, bipolar disorder, GERD, history of DVT and PE no longer on anticoagulation, medical noncompliance, history of pelvic fracture, chronic anemia, history of migraine, ongoing tobacco abuse, chronic polyp/diverticulosis presents with missing dialysis for whole 1 week. Noncompliance Missed hemodialysis sessions Pulmonary edema secondary to missed hemodialysis History of ESRD on hemodialysis Saturday with history of noncompliance Presents after missing 3 sessions of dialysis and possible hallucination Creatinine BUN elevated to 11.7/70 on admission Chest x-ray personally reviewed; consistent with venous congestion Status post dialysis on December 06, 2021 Patient to undergo Saturday dialysis as per nephrology. Metabolic encephalopathy secondary to missed hemodialysis session, resolved Possible uremia Patient appears to be alert oriented x 3 today Continue to monitor Depression Reports breaking up with her boyfriend and is presently homeless Discussed with psychiatry; sertraline increased to 200 mg once a day, mirtazapine 7.5 mg at night added. Also continue on Ativan as needed. History of depression anxiety and bipolar disorder Continue home medications Prolonged QTc QTc 512 Continue to hold hydroxyzine and trazodone Repeat EKG in a.m. Avoid QT prolonging drugs Type II diabetes Diet controlled Monitor for now Hypertension On Coreg Will monitor GERD Omeprazole Tobacco abuse Needs counseling Anemia of chronic disease Around baseline Thrombocytopenia Seems chronic Platelet count of 110 to 117K Will monitor Chronic pain On gabapentin DVT prophylaxis Heparin Disposition Telemetry Full code Dispositionpatient admitted after multiple missed dialysis session. Possible discharge in a.m. to her grandparents house Please note the above document was generated using voice recognition software. It may contain grammatical, syntax or spelling errors. Any formal questions or concerns about the content, text or information contained within the body of this dictation should be directly addressed to the provider for clarification Admission and Anticipated Discharge Date Admission Date: December 06, 2023 Subjective Patient is comfortable; not in distress. She reports that she is feeling better. Vital signs are stable. No significant events overnight Review of Systems Review of Systems: All systems reviewed & are unremarkable except as noted in Subjective Physical Exam Physical Exam: Constitutional: Sleeping; awake evaluate voice. Not in distress Respiratory: normal respiratory effort, lungs clear to auscultation, no wheeze, rales, rhonchi. Normal insp/exp effort, no accessory muscle use Cardiovascular: RRR, no murmur, no edema Vessels: no JVD or carotid bruit Chest: normal inspection of chest Abdomen: normal bowel sounds, soft, nontender, no hepatosplenomegaly Musculoskeletal: no cyanosis or clubbing, extremities motor strength 5/5. Upper extremity AV graft Skin: no rashes, warm and dry normal turgor Neurologic: PERRL, EOMI, accommodation nl, no face palsy, no dysarthria CN's II- XI intact bilaterally and moves all extremities Psychiatric: A+Ox3, euthymic affect Results & Data Results & Data Vital Signs (Past 12 Hours) Vital Signs Temp Pulse Pulse Pulse Resp BP BP 12/09/23 11:57 36.4 C L 64 18 110/52 L 12/09/23 07:26 74 12/09/23 07:10 36.4 C L 64 19 130/78 12/09/23 03:59 36.6 C 71 22 116/74 Pulse Ox O2 Del Method 12/09/23 11:57 96 Room Air 12/09/23 07:26 12/09/23 07:10 98 Room Air 12/09/23 03:59 93 Room Air
[2023-12-10 08:12] LABS: Albumin Level 4.3 gm/dl (3.4-5.0); Bilirubin,Total 0.9 mg/dl (0.2-1.0); Calcium 10.5 mg/dl (8.6-10.3); Potassium 4.7 mmol/L (3.5-5.1)
[2023-12-10 08:29] LABS: Albumin Globulin Ratio 1.6 (0.9-2); BUN Creatinine Ratio 4.2 (10-20); Creatinine Clr Calc Pharmacy 14.2 ml/min; Est GFR (African American) 10.6 ml/min; Est GFR (Non-African American) 9.2 ml/min; Globulin 2.7 gm/dl (2.5-4.0)
--- NOTE | 2023-12-10 09:46 | Nephrology Progress Note ---
Date of Service December 10, 2023 Assessment & Plan Admission and Anticipated Discharge Date Admission Date: December 06, 2023 Subjective Subjective Assessment & Plan (1) ESRD (end stage renal disease) on dialysis: Plan: Patient with ESRD on dialysis Saturday using right upper arm AV fistula. She missed dialysis for whole week. She had signs of volume overload. Hemodialysis Saturday for 3 and half hours Target UF 3 L and then had yesterday. She will have dialysis tomorrow if still in hospital. Discharge planning is difficult with her complex psychosocial issues Ca is high today likely because she is getting Calcium acetate inpt but was likely not adhering outpt--Impossible to manage in thsi situation. Lower dose to 1334 tid. (2) Anemia in ESRD (end-stage renal disease): Plan: She has anemia of renal disease. Will give Epogen 10,000 units with dialysis. Subjective Seen for ESRD. No shortness of breath. Goes to sleep Instantly mid sentence so unable to have any conversation with her Review of Systems Review of Systems: All other systems were reviewed and negative except as noted in HPI Physical Exam Physical Exam: General exam: Appears comfortable, no acute distress HEENT: Pupils are equal and reactive to light Neck: No JVD, neck is supple trachea is midline Respiratory system: Clear breath sounds bilaterally. Gastrointestinal: Abdomen is soft, non distended, non tender, bowel sounds are present CVS: Regular rate and rhythm. No murmurs, rubs or gallops Musculoskeletal: No joint or muscle tenderness Extremities: Non tender, no edema, peripheral pulses are present Neuro: Oriented, no tremors, no focal neurological deficits Skin: No rashes Results & Data Vital Signs (Past 12 Hours) Vital Signs Temp Pulse Pulse Pulse Resp BP Pulse Ox 12/10/23 07:35 36.4 C L 60 18 148/90 H 97 12/10/23 07:30 60 12/10/23 03:37 36.9 C 61 22 157/98 H 96 12/09/23 22:45 36.8 C 59 L 20 122/77 97 12/09/23 21:58 67 O2 Del Method 12/10/23 07:35 Room Air 12/10/23 07:30 12/10/23 03:37 Room Air 12/09/23 22:45 Room Air 12/09/23 21:58
[2023-12-10 11:04] LABS: Basophils # (auto) 0.04 K/uL (0.00-0.20); Basophils % (auto) 0.7 %; Eosinophils # (auto) 0.11 K/uL (0.00-0.50); Eosinophils % (auto) 1.8 %; Hemoglobin 11.4 g/dl (12.0-16.0); Immature Granulocytes # (auto) 0.07 K/uL (0.01-0.20); Immature Granulocytes % (auto) 1.1 %; Lymphocytes # (auto) 0.92 K/uL (1.20-3.40); Mean Corpuscular Hemoglobin 33.3 pg (25.0-34.0); Mean Corpuscular Hgb Conc 33.5 g/dL (32.0-36.0); Mean Corpuscular Volume 99.4 fL (80.0-100.0); Mean Platelet Volume 11.4 fL (9.4-12.4); Monocytes # (auto) 0.71 K/uL (0.11-0.59); Monocytes % (auto) 11.6 %; Neutrophils # (auto) 4.27 K/uL (1.40-6.50); Neutrophils % (auto) 69.8 %; Nucleated RBC % (auto) 1.6 %; Platelet Count 108 K/uL (130-400); RDW Coefficient of Variation 17.8 % (11.5-14.5); RDW Standard Deviation 60.7 fL (36.4-46.3); Red Blood Count 3.42 M/uL (4.20-5.40); White Blood Count 6.12 K/ul (4.8-10.8)
[2023-12-10] MEDS: CALCIUM ACETATE 667 MG CAP/TAB PO SCH (12:16)
--- NOTE | 2023-12-10 12:25 | Discharge Summary ---
Date of Service December 10, 2023 Admission HPI Per Admitting Provider 38-year-old female with PMH DM type II diet-controlled, ESRD on HD MWF (history of failed renal transplant), HTN, depression and anxiety, bipolar disorder, GERD, history of DVT and PE no longer on anticoagulation, medical noncompliance, history of pelvic fracture, chronic anemia, history of migraine, ongoing tobacco abuse, chronic polyp/diverticulosis presents with missing dialysis for whole 1 week. Patient was in the ER yesterday because of some questionable hallucinations seems from increased stress and decreased sleep last couple of days as result of breaking up with her boyfriend. Seems that her boyfriend kicked out of the house that she is currently staying at the hotel.She did okay in the ER and wanted to discharge to keep up her dialysis appointment. Seems she missed her dialysis and comes back today. Patient is tearful. Depressed. Answering some questions appropriately but intermittently somewhat confused. Denies any headache. Denies chest pain. Denies shortness of breath. Denies nausea. Denies abdominal pain. States bowel movements are watery. Appetite is down. No fevers. Complains of chronic pelvic pain. Requesting pain medication. Hemodynamics are okay. States she has no place to go. Asking about her children. Could not tell current dates. Past medical history. As mentioned above Past surgical history. AV access. . Colonoscopy. Cystoscopy and EGD. Knee arthroscopy. Laparoscopic cholecystectomy. Ligation of oviducts. Renal biopsy. Left mechanical venous thrombectomy. Transplantation of kidney. Social history. Smokes currently 3 cigarettes daily. No alcohol use. No drug use. Family history. Mother had diabetes. Hypothyroidism. Sister has hypothyroidism. Father had depression. Chron's disease. Admission Exam Per Admitting Provider General-Not in distress Head- atraumatic Eyes- PERRL. ENT- oropharynx clear Neck- supple, no JVD. Lungs- clear to auscultation no wheezing or crackles Heart- regular rate and rhythm; no murmur, no gallop. Abdomen- normal bowel sounds, soft, nontender, no distension Extremities- no pretibial edema, no erythema Neuro- alert, oriented x 2; PERRL, no facial palsy; no dysarthria; moves extremities. obeys simple commands Principal Diagnosis Noncompliance Missed hemodialysis sessions Pulmonary edema secondary to missed hemodialysis Discharge Exam Constitutional: Alert, orienteded x 3 Respiratory: normal respiratory effort, lungs clear to auscultation, no wheeze, rales, rhonchi. Normal insp/exp effort, no accessory muscle use Cardiovascular: RRR, no murmur, no edema Vessels: no JVD or carotid bruit Chest: normal inspection of chest Abdomen: normal bowel sounds, soft, nontender, no hepatosplenomegaly Musculoskeletal: no cyanosis or clubbing, extremities motor strength 5/5. Upper extremity AV graft Skin: no rashes, warm and dry normal turgor Neurologic: PERRL, EOMI, accommodation nl, no face palsy, no dysarthria CN's II- XI intact bilaterally and moves all extremities Psychiatric: A+Ox3, euthymic affect Discharge Data Allergies Allergy/AdvReac Type Severity Reaction Status Date / Time cefaclor Allergy Intermediate Rash Verified 11/14/23 16:49 Cephalosporins Allergy Intermediate Rash Verified 11/14/23 16:49 amoxicillin AdvReac Intermediate VOMITING Verified 11/14/23 16:49 clavulanic acid AdvReac Intermediate VOMITING Verified 11/14/23 16:49 Consultations 12/06/23 19:13 ED Decision to Admit Stat 12/07/23 08:00 Consult Nephrology Routine Consult Psychiatry Routine Hospital Course (1) Non-compliance: 38-year-old female with PMH DM type II diet-controlled, ESRD on HD MWF (history of failed renal transplant), HTN, depression and anxiety, bipolar disorder, GERD, history of DVT and PE no longer on anticoagulation, medical noncompliance, history of pelvic fracture, chronic anemia, history of migraine, ongoing tobacco abuse, chronic polyp/diverticulosis presents with missing dialysis for whole 1 week. Noncompliance Missed hemodialysis sessions Pulmonary edema secondary to missed hemodialysis History of ESRD on hemodialysis Saturday with history of noncompliance Presents after missing 3 sessions of dialysis and possible hallucination Creatinine BUN elevated to 11.7/70 on admission Chest x-ray personally reviewed; consistent with venous congestion Status post dialysis on December 06, 2021 Patient to undergo Saturday dialysis as per nephrology. Metabolic encephalopathy secondary to missed hemodialysis session, resolved Possible uremia Patient appears to be alert oriented x 3 today Continue to monitor Depression Reports breaking up with her boyfriend and is presently homeless Discussed with psychiatry; sertraline increased to 200 mg once a day, mirtazapine 7.5 mg at night added. Also continue on Ativan as needed. History of depression anxiety and bipolar disorder Trazodone was stopped at discharge. Mirtazapine was prescribed. Sertraline dose was not increased as patient's QTc continues to be on the higher side. Discharge patient to her grandparents house with instruction to follow-up with PCP and obtaining an EKG as outpatient Patient was alert oriented x 3 at the time of the discharge. She understood and verbalized all the discharge instructions. She reported that she will be compliant with HD from now onwards. Please note the above document was generated using voice recognition software. It may contain grammatical, syntax or spelling errors. Any formal questions or concerns about the content, text or information contained within the body of this dictation should be directly addressed to the provider for clarification Total Time Total Time Spent Total Time Spent (In Minutes): 35 Total Time Includes: Examination of the Patient, Discharge Planning, Medication Reconciliation, Communication With Other Providers and Other Discharge Plan Discharge Items Patient Disposition: Home - Self-Care Reason For Visit: MISSED DIALYSIS, CONFUSION, DEPRESSION Discharge Diagnosis: Noncompliance Missed hemodialysis sessions Pulmonary edema secondary to missed hemodialysis Condition on Discharge: Fair Activity: Resume your previous activity Non-emergency contact: Primary Care Provider Call non-emergency contact if: you have any medication questions and your symptoms worsen Follow-up/Referrals: Adolph Aldridge MD [Primary Care Provider] - (Date & Time 12/19/2023 9:40 AM Provider Adolph Aldridge MD [facility] ) Diet: Regular Addtl Attending Provider Instructions: You were admitted to the hospital due to missed dialysis session. The likely cause for your altered mental status was buildup of toxins due to missed dialysis sessions. You were evaluated by psychiatry during the hospitalization; you are prescribed mirtazapine 15 mg to be taken at night. Please stop taking trazodone. They also recommended increasing the dose of sertraline to 200 mg once a day. However EKG showed prolonged QT interval of 514ms. You will need to follow-up with her primary care doctor as scheduled and get a repeat EKG. Doses should be adjusted based on the QTc interval. Please follow-up to dialysis as a schedule Pending Studies at Discharge: No Stand-Alone Forms: My [facility], Smoking Cessation Medications and DC Order Prescriptions: New mirtazapine 15 mg Tablet 7.5 mg PO HS 30 Days Qty: 15 0RF Continued albuterol sulfate 2.5 mg /3 mL (0.083 %) Solution For Nebulization 2.5 mg INHALATION Q4H PRN (Reason: Shortness Of Breath Or Wheezing) gabapentin 400 mg capsule 400 mg PO TID sertraline 100 mg tablet 100 mg PO DAILY Rx Instructions: TOTAL DOSE 150 MG--TAKES WITH 50 MG TAB. carbamazepine 200 mg tablet 200 mg PO AMPM lorazepam 0.5 mg tablet 0.5 mg PO Q8 MDD panic attacks/before dialysis PRN (Reason: Anxiety) omeprazole 20 mg capsule,delayed release(DR/EC) 20 mg PO DAILYBB Renal-Rika 0.8 mg Tablet 1 tab PO DAILY Rx Instructions: PER PT "CAN'T FIND IN STORE, BEEN OUT FOR A WHILE". albuterol sulfate 90 mcg/actuation Hfa Aerosol Inhaler 2 puff INHALATION Q6H PRN (Reason: Shortness Of Breath Or Wheezing) Dulera 200-5 mcg/actuation Hfa Aerosol Inhaler 2 puff INHALATION BID cinacalcet 90 mg tablet 90 mg PO QDD benzonatate 100 mg capsule 200 mg PO TID PRN (Reason: Cough) sertraline 50 mg tablet 50 mg PO QAM Rx Instructions: TOTAL DOSE 150 MG--TAKES WITH 100 MG TAB. medroxyprogesterone [Depo-Provera] 150 mg/mL Suspension 150 mg IM .EVERY 3 MONTHS Rx Instructions: HAD SEP 2023 calcium acetate(phosphat bind) 667 mg Capsule 2,001 mg PO TIDM Rx Instructions: 2 TABS WITH SNACKS carvedilol 6.25 mg tablet 6.25 mg PO BID Discontinued hydroxyzine HCl 25 mg tablet 25 mg PO Q6H PRN (Reason: Anxiety) trazodone 100 mg tablet 200 mg PO HS Discharge Orders: Discharge Order (Routine); Ordered 12/10/23 Ordered By: Arthur Martinez/Other Patient Handouts: Managing Type 2 Diabetes Admission Data Admit Date/Time: 12/06/23 19:56 Attending Provider: Arthur Pandey Admit Provider: Daquan Morgan Primary Care Provider: Adolph Aldridge Other Providers: Daquan Morgan; Leah Nieves; Jena Short; Berta Godoy; Augie Aaron; Farooq Nelson Jr; Camryn Chavez; Nusrat Cordero Other Interventions: Discharge Summary Assessment (RN) Last Done: 12/10/23 11:17
--- NOTE | 2023-12-10 13:48 | Electrocardiogram Report ---
Test Reason : Blood Pressure : / mmHG Vent. Rate : 059 BPM Atrial Rate : 059 BPM P-R Int : 154 ms QRS Dur : 120 ms QT Int : 520 ms P-R-T Axes : 055 -44 013 degrees QTc Int : 514 ms Sinus bradycardia Left axis deviation Left ventricular hypertrophy with QRS widening Poor R wave progression, consider anterior TX vs. lead placement vs. LVH Nonspecific ST abnormality Abnormal ECG When compared with ECG of 08-DEC-2023 06:09, No significant change was found Confirmed by Daljit Thompson ([id number]) on 12/10/2023 1:48:18 PM Referred By: Adolph Aldridge Confirmed By:Ric Thompson
== END 2023-12-10 12:49 | disposition home or self-care (01) | DRG 70 ==
LOC: ED 14:26 → 2S 19:56

== ENCOUNTER 2024-04-19 11:09 | Inpatient (IN) ==
--- NOTE | 2024-04-19 11:59 | Emergency Department Note ---
Impression & Plan Elevated troponin, DM2 (diabetes mellitus, type 2), ESRD (end stage renal disease) on dialysis, Chest pain, Nausea ED Provider Note Provider: Rodney Martinez MD DATE OF SERVICE: 04/19/2024 CHIEF COMPLAINT: Chest pain HISTORY OF PRESENT ILLNESS: Patient is a 38-year-old female unfortunate history of type 2 diabetes/FSGS, end-stage renal disease on dialysis with a history of fluid overload, and presenting here via ambulance today reporting chest pain fairly consistently in the hypertension left upper to left shoulder region of her chest since . Was seen in the emergency department that and sent home after evaluation. Received 324 mg of aspirin in the ambulance. She is pain is been pretty constant. Maybe that short of breath with exertion but not so much at rest. Has been having nausea but has not vomited. Denies severe abdominal pain. States compliance with her Saturday dialysis and denies significant swelling or weight gain. Does have some chronic pain in the left shoulder and left pelvis region and was recently on crutches. States he does not believe this pain is related to the crutches as her right side is not hurting. PAST MEDICAL HISTORY: As noted above MEDICATIONS: Reviewed home medications SOCIAL HISTORY: Lives at home PHYSICAL EXAM: GENERAL: alert and oriented in no acute distress on stretcher Head: normocephalic and atraumatic EYES: No injection, discharge or icterus. EOMI. NECK: Trachea midline. ENT: Mucous membranes pink and moist. LUNGS: Airway patent. No retractions. Breath sounds clear anteriorly HEART: Regular rate and rhythm. No chest wall tenderness ABDOMEN: Soft and non-tender, without guarding or rebound. SKIN: Acyanotic, warm, dry, without rashes EXTREMITIES: Without significant swelling of the lower extremities or upper extremities. Bilateral upper arm fistula is appreciated with thrill. Some pain reported in the left hip and some pain with the left shoulder movement as well reported. NEUROLOGICAL: No focal deficits intact sensation in the bilateral hands. No aphasia. No facial droop or slurred speech. EK bpm per minute normal sinus rhythm. No acute ST segment elevation or depression with a QTc 507 and some lead III T wave inversion. Left axis is notable. CONTINUOUS CARDIAC MONITORING: was ordered and showed a heart rate of 80s to 90s bpm in normal sinus rhythm Patient's laboratory studies and imaging reviewed. Differential includes Cardiac ischemia, aortic dissection, pulmonary embolism, pneumothorax, pneumonia, pericarditis, myocarditis, esophageal rupture, GERD, cholecystitis, pancreatitis, musculoskeletal, as well as other pathologies. IMPRESSION/MEDICAL DECISION MAKING: Patient with chest pain. Fairly consistent since . Some muscular type pain reported in the shoulder and left hip from prior episodes but denies new trauma. Chest x-ray without evidence of pneumonia or pneumothorax. Some slight fluid but not severe. Not hypoxic. Blood work here with some chronic anemia and borderline leukopenia 4.6. Doubt sepsis or infection. Electrolytes and creatinine completed but is on dialysis and states compliance with this. Troponin is elevated today 901 significantly higher than previous values from in the 70s. This could be from some fluid overload as she does not have obvious findings of ACS on the EKG and is more consistent with her past history. feeling improved pain and nausea on reassessment. Not significantly tachycardic or hypoxic. Lower suspicion for PE at this time. Do question a little bit of demand given the x-ray findings for some slight fluid overload. Will bring to the hospital for further care. Hospitalist was contacted & the patient was agreeable with this plan. DIAGNOSIS: Elevated troponin, end-stage renal disease on hemodialysis, nausea DISPOSITION: Hospitalist will evaluate Patient was agreeable with this plan. Past Med/Surg History Problem List (Updated 04/19/24 @ 16:04 by Jackie Jaramillo PA-C) Nausea (Acute) Chest pain (Acute) Elevated troponin (Acute) Chest pain not due to acute coronary syndrome (Acute) Bleeding external hemorrhoids (Acute) Non-compliance (Acute) Fluid overload (Acute) Uremia (Acute) Anemia (Acute) Depression (Acute) Weakness (Acute) Sleep deprivation (Acute) Hallucinations (Acute) Anemia (Acute) Dialysis patient (Acute) Medical non-compliance (Acute) Acute uremia (Acute) Shortness of breath (Acute) Elevated troponin (Acute) Acute hyperkalemia (Acute) SOB (shortness of breath) (Acute) SOB (shortness of breath) (Acute) CHF (congestive heart failure) (Acute) Acute uremia (Acute) Somnolence (Acute) Medical non-compliance (Acute) Elevated troponin (Acute) Dialysis patient (Acute) Renal failure (Acute) Hyperkalemia (Acute) Thrombocytopenia COVID-19 (Acute) Renal osteodystrophy Anemia in ESRD (end-stage renal disease) ESRD (end stage renal disease) on dialysis (Acute) DM2 (diabetes mellitus, type 2) (Acute) Anxiety Depression Major depressive disorder, recurrent, in partial remission Depression with anxiety Anemia of chronic disease Status post fall last fallNovember 2022 > nasal fx / knee pain, no surgery for either injury > resolved per pt report Prolonged QT interval (Acute) no cardio HTN (hypertension) (Acute) Anemia due to end stage renal disease (Acute) FSGS (focal segmental glomerulosclerosis) (Chronic) DX INITIALLY 2012 (CAUSING ESRD 2012) Medical History (Updated 04/19/24 @ 16:04 by Jackie Jaramillo PA-C) Mood disorder Anxiety disorder, unspecified Abnormal chest xray Elevated lactic acid level Transaminitis Pneumonia Metabolic encephalopathy Acute non-ST elevation myocardial infarction (NSTEMI) Pulmonary edema Acute hyperkalemia Acute alteration in mental status Renal failure (ARF), acute on chronic Encephalopathy Rectal bleeding reason for up coming colonoscopy Facial fracture GI bleed ESRD (end stage renal disease) on dialysis Symptomatic anemia Tobacco abuse DVT prophylaxis Fistula right arm (currently being used) and left arm Dialysis patient SATURDAY/SAT/SATURDAY AT [facility] GERD (gastroesophageal reflux disease) Bipolar disorder Restless leg syndrome Peripheral neuropathy Asthma rare res inh use History of abnormal cervical Papanicolaou smear Elevated troponin Acute electrocardiogram changes Surgical History (Updated 04/19/24 @ 15:47 by Jackie Jaramillo PA-C) H/O eye surgery LASER SURGERY LEFT History of surgery left arm d/t clot in arm from AV fistula use @ [facility] History of surgery (~09/09/20) perm cath > since removed History of colonoscopy Kidney transplant recipient 2013 AT [facility] History of tooth extraction three TOOTH History of cardiac cath 2016 NO STENTS AVF (arteriovenous fistula) bilat upper arms ---currently using right for dialysis Family History Grandmother Hx of CABG Mother Diabetes Father Crohn's disease Grandfather (Maternal) Diabetes Uncle Diabetes Grandmother (Maternal) Family history of reaction to anesthesia difficulty waking with colonoscopy Social History Smoking Status: Former smoker Tobacco Type: Cigarettes Cigarettes Per Day: 20; Second Hand Exposure: No; Do You Dip or Chew Tobacco: No; Hx Alcohol Use: No Hx Substance Use: Yes Substance Use Type Other:: medical marijuana at HS Preferred Language: Irish Communication Ability: Effective [employer] Hcm Consultant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 Beliefs That Will Affect Care: None marital status: Single Current Living Situation: Homeless Current Living Situation Comment: boyfriend recently kicked patient out of house pt reports How many Children do You have: 3 Feels Safe at Home: Yes Assistive Devices: None Allergies Allergies Allergy/AdvReac Type Severity Reaction Status Date / Time cefaclor Allergy Intermediate Rash Verified 04/17/24 10:42 Cephalosporins Allergy Intermediate Rash Verified 04/17/24 10:42 amoxicillin AdvReac Intermediate VOMITING Verified 04/17/24 10:42 clavulanic acid AdvReac Intermediate VOMITING Verified 04/17/24 10:42 Home Meds Home Medications Medication Instructions Recorded Confirmed albuterol sulfate 2.5 mg/3 mL 2.5 mg inhalation Q4H PRN 06/08/23 04/19/24 (0.083 %) solution for nebulization Shortness Of Breath Or Wheezing albuterol sulfate 90 mcg/actuation 2 puff inhalation Q6H PRN 06/08/23 04/19/24 aerosol inhaler Shortness Of Breath Or Wheezing carbamazepine 200 mg tablet 200 mg PO AMPM 06/08/23 04/19/24 gabapentin 400 mg capsule 400 mg PO TID 06/08/23 04/19/24 hydroxyzine HCl 25 mg tablet 25 mg PO Q6H PRN Anxiety 06/08/23 04/19/24 lorazepam 0.5 mg tablet 0.5 mg PO Q8 PRN Anxiety 06/08/23 04/19/24 mometasone-formoterol HFA 200 2 puff inhalation BID 06/08/23 04/19/24 mcg-5 mcg/actuation aerosol inhaler (Dulera) omeprazole 20 mg capsule,delayed 20 mg PO DAILYBB 06/08/23 04/19/24 release vitamin B complex-vitamin C-folic 1 tab PO DAILY 06/08/23 04/19/24 acid 0.8 mg tablet (Renal-Rika) benzonatate 100 mg capsule 200 mg PO TID PRN Cough 08/29/23 04/19/24 calcium acetate(phosphat bind) 667 See Rx Instructions .Route .COMPLEX 08/29/23 04/19/24 mg capsule cinacalcet 90 mg tablet 90 mg PO QDD 08/29/23 04/19/24 medroxyprogesterone 150 mg/mL 150 mg IM UD 08/29/23 04/19/24 intramuscular suspension (Depo-Provera) bupropion HCl 150 mg 24 hr tablet, 150 mg PO QAM 04/17/24 04/19/24 extended release mirtazapine 7.5 mg tablet 7.5 mg PO HS 04/17/24 04/19/24 varenicline 1 mg tablet 1 mg PO BID 04/17/24 04/19/24 Previous Rx's Medication Instructions Recorded hydrocortisone 1 %-pramoxine 1 % 1 applic OK QID PRN itching #10 04/11/24 rectal foam (Proctofoam HC) grams lidocaine 5 % topical ointment 1 applic topical QID PRN pain #30 04/11/24 grams Results & Data (ED) Vital Signs Vital Signs - 24 hr 04/19/24 11:22 04/19/24 11:22 04/19/24 11:34 Temperature 36.8 C Temperature Source Oral Pulse Rate 99 H 91 H Pulse Rate [Apical] Pulse Rhythm Regular Pulse Strength Normal Respiratory Rate 18 Respiratory Effort / Characteristics Non-Labored Respiratory Depth Normal Blood Pressure 147/89 H Blood Pressure [Left Radial Artery] Blood Pressure Mean 108 Blood Pressure Mean [Left Radial Artery] Pulse Oximetry 100 100 Oxygen Delivery Method Room Air Room Air Sepsis Recent Fever Within 48 Hours No Sepsis New/Unexplained Change in Mental Status No Sepsis Action Taken by Nursing No Action Required 04/19/24 13:00 04/19/24 15:07 04/19/24 15:18 Temperature Temperature Source Pulse Rate 84 Pulse Rate [Apical] 87 86 Pulse Rhythm Pulse Strength Respiratory Rate 18 12 Respiratory Effort / Characteristics Non-Labored Respiratory Depth Normal Blood Pressure Blood Pressure [Left Radial Artery] 149/97 H Blood Pressure Mean Blood Pressure Mean [Left Radial Artery] 114 Pulse Oximetry 95 98 Oxygen Delivery Method Room Air Room Air Sepsis Recent Fever Within 48 Hours Sepsis New/Unexplained Change in Mental Status Sepsis Action Taken by Nursing 04/19/24 15:24 04/19/24 15:45 04/19/24 16:06 Temperature Temperature Source Pulse Rate 82 92 H 84 Pulse Rate [Apical] Pulse Rhythm Pulse Strength Respiratory Rate 2 L 18 14 Respiratory Effort / Characteristics Respiratory Depth Blood Pressure Blood Pressure [Left Radial Artery] Blood Pressure Mean Blood Pressure Mean [Left Radial Artery] Pulse Oximetry Oxygen Delivery Method Sepsis Recent Fever Within 48 Hours Sepsis New/Unexplained Change in Mental Status Sepsis Action Taken by Nursing 04/19/24 16:30 Temperature Temperature Source Pulse Rate 92 H Pulse Rate [Apical] Pulse Rhythm Pulse Strength Respiratory Rate 14 Respiratory Effort / Characteristics Respiratory Depth Blood Pressure Blood Pressure [Left Radial Artery] Blood Pressure Mean Blood Pressure Mean [Left Radial Artery] Pulse Oximetry Oxygen Delivery Method Sepsis Recent Fever Within 48 Hours Sepsis New/Unexplained Change in Mental Status Sepsis Action Taken by Nursing Laboratory Data 04/19/24 13:15 04/19/24 13:15 Lab Results 04/19/24 04/19/24 Range/Units 13:15 15:08 WBC 4.65 L (4.8-10.8) K/ul RBC 3.10 L (4.20-5.40) M/uL Hgb 10.2 L (12.0-16.0) g/dl Hct 30.9 L (37.0-47.0) % MCV 99.7 (80.0-100.0) fL MCH 32.9 (25.0-34.0) pg MCHC 33.0 (32.0-36.0) g/dL RDW Std Deviation 55.2 H (36.4-46.3) fL RDW Coeff of Laith 15.1 H (11.5-14.5) % Plt Count 106 L (130-400) K/uL MPV 10.5 (9.4-12.4) fL Immature Gran % (Auto) 0.2 % Neut % (Auto) 72.9 % Lymph % (Auto) 12.5 % Republic % (Auto) 12.5 % Eos % (Auto) 1.5 % Baso % (Auto) 0.4 % Neut # (Auto) 3.39 (1.40-6.50) K/uL Lymph # (Auto) 0.58 L (1.20-3.40) K/uL Republic # (Auto) 0.58 (0.11-0.59) K/uL Eos # (Auto) 0.07 (0.00-0.50) K/uL Baso # (Auto) 0.02 (0.00-0.20) K/uL Immature Gran # (Auto) 0.01 (0.01-0.20) K/uL PT 10.9 (9.0-12.0) Seconds INR 1.0 (0.9-1.1) APTT 24 (21-31) Seconds PTT Ratio 0.9 Sodium 135 L (136-145) mmol/L Potassium 4.7 (3.5-5.1) mmol/L Chloride 88 L (98-107) mmol/L Carbon Dioxide 31 (21-32) mmol/L Anion Gap 16 H (3-11) BUN 66 H (6-23) mg/dl Creatinine 9.41 H* (0.6-1.2) mg/dl Est Cr Clr Drug Dosing 8.8 ml/min Est GFR ( Amer) 5.5 ml/min Est GFR (Non-Af Amer) 4.8 ml/min BUN/Creatinine Ratio 7.0 L (10-20) Glucose 104 H (70-99(Fasting)) mg/dl Calcium 10.2 (8.6-10.3) mg/dl Total Bilirubin 0.6 (0.2-1.0) mg/dl AST 16 (13-39) U/L ALT 11 (7-52) U/L Alkaline Phosphatase 113 H (34-104) U/L Troponin I High Sens 901.9 H* 846.1 H* (0-14) pg/ml Total Protein 6.8 (6.0-8.3) gm/dl Albumin 4.0 (3.4-5.0) gm/dl Globulin 2.8 (2.5-4.0) gm/dl Albumin/Globulin Ratio 1.4 (0.9-2) Lipase 9 L (11-82) U/L Administered Medications Nitroglycerin (Nitroglycerin Sl 0.4 Mg/Tab Tab) 0.4 mg SL Q5M PRN PRN Reason: Chest Pain Stop: 05/19/24 15:02 Last Admin: 04/19/24 15:24 Dose: 0.4 mg Documented By: JOSE ANGEL Discontinued Medications Acetaminophen (Acetaminophen 500 Mg Tab) 1,000 mg PO NOW STA Stop: 04/19/24 16:35 Last Admin: 04/19/24 16:58 Dose: 1,000 mg Documented By: ALEISHA Fentanyl Citrate (Fentanyl Citrate Pf 100 Mcg/2 Ml Vial) 50 mcg IV NOW STA Stop: 04/19/24 13:39 Last Admin: 04/19/24 13:47 Dose: 50 mcg Documented By: ARASH Ondansetron HCl (Ondansetron Inj 2 Mg/Ml 2 Ml Vial) 4 mg IV NOW STA Stop: 04/19/24 13:39 Last Admin: 04/19/24 13:47 Dose: 4 mg Documented By: ARASH Imaging Data Radiologist's Impression: Chest X-Ray 04/19/24 11:49 XR chest 1V portable HISTORY: Atypical chest pain COMPARISON: Chest 04/17/2024. FINDINGS: The cardiac silhouette is mildly enlarged. No pneumothorax. No pleural effusions. There is mild central pulmonary vascular congestion without overt edema. This has slightly progressed. No new focal lung consolidations. No acute fractures. Vascular stents are unchanged in position. IMPRESSION: Cardiomegaly with slight progression of the mild pulmonary vascular congestion. ACT 112: Negative or not required by law. Electronically signed by: Jose Jenkins M.D. 04/19/2024 12:21 PM Discharge Plan Visit Data Chief Complaint: Chest Pain ED Provider: Rodney Martinez Discharge Problem: Elevated troponin, DM2 (diabetes mellitus, type 2), ESRD (end stage renal disease) on dialysis, Chest pain, Nausea Patient Disposition: Being Evaluated by Hospitalist Forms Stand Alone Forms: My [facility] Prescriptions Prescriptions: No Action albuterol sulfate 2.5 mg /3 mL (0.083 %) Solution For Nebulization 2.5 mg INHALATION Q4H PRN (Reason: Shortness Of Breath Or Wheezing) gabapentin 400 mg capsule 400 mg PO TID carbamazepine 200 mg tablet 200 mg PO AMPM lorazepam 0.5 mg tablet 0.5 mg PO Q8 MDD panic attacks/before dialysis PRN (Reason: Anxiety) omeprazole 20 mg capsule,delayed release(DR/EC) 20 mg PO DAILYBB hydroxyzine HCl 25 mg tablet 25 mg PO Q6H PRN (Reason: Anxiety) Renal-Rika 0.8 mg Tablet 1 tab PO DAILY Rx Instructions: PER PT "CAN'T FIND IN STORE, BEEN OUT FOR A WHILE". albuterol sulfate 90 mcg/actuation Hfa Aerosol Inhaler 2 puff INHALATION Q6H PRN (Reason: Shortness Of Breath Or Wheezing) Dulera 200-5 mcg/actuation Hfa Aerosol Inhaler 2 puff INHALATION BID cinacalcet 90 mg tablet 90 mg PO QDD benzonatate 100 mg capsule 200 mg PO TID PRN (Reason: Cough) medroxyprogesterone [Depo-Provera] 150 mg/mL Suspension 150 mg IM UD Rx Instructions: Every 3 months calcium acetate(phosphat bind) 667 mg Capsule See Rx Instructions .ROUTE .COMPLEX Rx Instructions: Take 2001mg by mouth with each meal and 1334mg with each snack Proctofoam HC 1-1 % foam 1 applic OK QID PRN (Reason: itching) Qty: 10 3RF lidocaine 5 % ointment 1 applic topical QID PRN (Reason: pain) Qty: 30 3RF Rx Instructions: Apply to rectal area up to 4 times daily as needed. bupropion HCl 150 mg tablet extended release 24 hr 150 mg PO QAM mirtazapine 7.5 mg tablet 7.5 mg PO HS varenicline 1 mg tablet 1 mg PO BID Referrals Referrals: Adolph Aldridge MD [Primary Care Provider] -
--- NOTE | 2024-04-19 12:24 | XRay Report ---
XR chest 1V portable HISTORY: Atypical chest pain COMPARISON: Chest 04/17/2024. FINDINGS: The cardiac silhouette is mildly enlarged. No pneumothorax. No pleural effusions. There is mild central pulmonary vascular congestion without overt edema. This has slightly progressed. No new focal lung consolidations. No acute fractures. Vascular stents are unchanged in position. IMPRESSION: Cardiomegaly with slight progression of the mild pulmonary vascular congestion. ACT 112: Negative or not required by law. Electronically signed by: Jose Jenkins M.D. 04/19/2024 12:21 PM
[2024-04-19 13:39] LABS: Basophils # (auto) 0.02 K/uL (0.00-0.20); Basophils % (auto) 0.4 %; Eosinophils # (auto) 0.07 K/uL (0.00-0.50); Eosinophils % (auto) 1.5 %; Hematocrit (blood only) 30.9 % (37.0-47.0); Hemoglobin 10.2 g/dl (12.0-16.0); Immature Granulocytes # (auto) 0.01 K/uL (0.01-0.20); Immature Granulocytes % (auto) 0.2 %; Lymphocytes # (auto) 0.58 K/uL (1.20-3.40); Lymphocytes % (auto) 12.5 %; Mean Corpuscular Hemoglobin 32.9 pg (25.0-34.0); Mean Corpuscular Volume 99.7 fL (80.0-100.0); Mean Platelet Volume 10.5 fL (9.4-12.4); Monocytes # (auto) 0.58 K/uL (0.11-0.59); Monocytes % (auto) 12.5 %; Neutrophils # (auto) 3.39 K/uL (1.40-6.50); Neutrophils % (auto) 72.9 %; Platelet Count 106 K/uL (130-400); RDW Coefficient of Variation 15.1 % (11.5-14.5); RDW Standard Deviation 55.2 fL (36.4-46.3); White Blood Count 4.65 K/ul (4.8-10.8)
[2024-04-19 13:43] LABS: Partial Thromboplastin Ratio 0.9; Partial Thromboplastin Time 24 Seconds (21-31); Prothrombin Time 10.9 Seconds (9.0-12.0)
[2024-04-19] MEDS: fentaNYL citrate PF 100 MCG/2 ML VIAL IV STA (13:47)
[2024-04-19] MEDS: ONDANSETRON INJ 2 MG/ML 2 ML VIAL IV STA (13:47)
[2024-04-19 14:01] LABS: Albumin Globulin Ratio 1.4 (0.9-2); Bilirubin,Total 0.6 mg/dl (0.2-1.0); Calcium 10.2 mg/dl (8.6-10.3); Creatinine Clr Calc Pharmacy 8.8 ml/min; Est GFR (African American) 5.5 ml/min; Est GFR (Non-African American) 4.8 ml/min; Globulin 2.8 gm/dl (2.5-4.0); Potassium 4.7 mmol/L (3.5-5.1); Total Protein 6.8 gm/dl (6.0-8.3)
[2024-04-19 14:04] LABS: Troponin I High Sensitivity 901.9 pg/ml (0-14)
--- NOTE | 2024-04-19 14:40 | History & Physical Report ---
Date of Service April 19, 2024 Assessment & Plan (1) Chest pain: Plan: This is a 38-year-old female with PMH DM type II, ESRD on HD MWF (history of failed renal transplant), HTN, bipolar disorder, history of DVT and PE no longer on anticoagulation, medical noncompliance and other medical problems listed below who presents with chest pain x 3 days. Constant pain, r/o ACS. In setting of ESRD on HD with Cr 9 today Initial troponin 901.9 -> 846.1 NSR at 93 bpm per minute, no acute ST elevation. QTc 507 CXR with Cardiomegaly with slight progression of the mild pulmonary vascular congestion Check echo (previous 2D echo from 05/18 with EF 50-55%, mild to moderate concentric LVH, no regional wall motion abnormalities noted) Trend troponin, repeat EKG in AM, ntg as needed, diclofenac gel for possible MSK pain If worsening chest pain or continued significant troponin elevation, consider cardiology involvement (2) ESRD (end stage renal disease) on dialysis: (3) Dialysis patient: Plan: Follows with Dr. Nieves. Missed HD on Saturday and session was cut short on Saturday 2/ CP Has HD MWF - routine nephro consult (4) DM2 (diabetes mellitus, type 2): Plan: A1c 5.6 in November 2023 Hold home agents SSI while in-patient BSG AC HS (5) Asthma: Plan: Stable; continue home inhalers (6) Mood disorder: Plan: Stable. Continue Bupropion, Zoloft, carbamazepine, mirtazapine, hydroxyzine PRN, Ativan PRN (7) Anemia: Plan: Anemia of chronic disease Hgb 10.2, at baseline (8) Medical non-compliance: Plan: DVT Ppx: SCDs for now Code status: FULL PCP: Luis Carlos Dispo: observation med tele Patient seen in collaboration with Dr. Jackson. Please see addendum. I spent a total of 75 minutes coordinating, documenting, and providing care for this patient excluding time spent in the performance of separately billed services. History of Present Illness Chief Complaint: CP Primary Care Provider: Adolph Aldridge MD This is a 38-year-old female with PMH DM type II, ESRD on HD MWF (history of failed renal transplant), HTN, bipolar disorder, history of DVT and PE no longer on anticoagulation, medical noncompliance and other medical problems listed below who presents with chest pain x 3 days. Started to have chest pain on Saturday during, which was cut short 72 minutes short due to chest pain. When evaluated in ED, troponin was 76 -> 74 and was discharged home. Continued to have chest pain that has increased in frequency from intermittent to constant since then, described as sharp, stabbing pain centrally located radiating towards the left. Does have chronic left shoulder pain as well but states this pain is different. + Associated nausea and poor appetite but no SOB. Pain resolved with Zofran and fentanyl in ED and is currently comfortable. Missed HD on Saturday due to being sick with a GI bug but did complete a full dialysis session this past Saturday. Was found to have a healing pelvic fracture last month and is seeing someone for this. No F/C, cough, congestion, SOB, V, abd pain, diarrhea or constipation. Does not make urine. Follows with Dr. Nieves for nephro. History of smoking 1ppd since age 18 but quit smoking 35 days ago. Allergies Allergy/AdvReac Type Severity Reaction Status Date / Time cefaclor Allergy Intermediate Rash Verified 04/17/24 10:42 Cephalosporins Allergy Intermediate Rash Verified 04/17/24 10:42 amoxicillin AdvReac Intermediate VOMITING Verified 04/17/24 10:42 clavulanic acid AdvReac Intermediate VOMITING Verified 04/17/24 10:42 Home Medications Medication Instructions Recorded Confirmed Type albuterol sulfate 2.5 mg/3 mL 2.5 mg inhalation Q4H PRN 06/08/23 04/19/24 History (0.083 %) solution for nebulization Shortness Of Breath Or Wheezing albuterol sulfate 90 mcg/actuation 2 puff inhalation Q6H PRN 06/08/23 04/19/24 History aerosol inhaler Shortness Of Breath Or Wheezing carbamazepine 200 mg tablet 200 mg PO AMPM 06/08/23 04/19/24 History gabapentin 400 mg capsule 400 mg PO TID 06/08/23 04/19/24 History hydroxyzine HCl 25 mg tablet 25 mg PO Q6H PRN Anxiety 06/08/23 04/19/24 History lorazepam 0.5 mg tablet 0.5 mg PO Q8 PRN Anxiety 06/08/23 04/19/24 History mometasone-formoterol HFA 200 2 puff inhalation BID 06/08/23 04/19/24 History mcg-5 mcg/actuation aerosol inhaler (Dulera) omeprazole 20 mg capsule,delayed 20 mg PO DAILYBB 06/08/23 04/19/24 History release vitamin B complex-vitamin C-folic 1 tab PO DAILY 06/08/23 04/19/24 History acid 0.8 mg tablet (Renal-Rika) benzonatate 100 mg capsule 200 mg PO TID PRN Cough 08/29/23 04/19/24 History calcium acetate(phosphat bind) 667 See Rx Instructions .Route .COMPLEX 08/29/23 04/19/24 History mg capsule cinacalcet 90 mg tablet 90 mg PO QDD 08/29/23 04/19/24 History medroxyprogesterone 150 mg/mL 150 mg IM UD 08/29/23 04/19/24 History intramuscular suspension (Depo-Provera) hydrocortisone 1 %-pramoxine 1 % 1 applic [place] QID PRN itching #10 04/11/24 04/19/24 Rx rectal foam (Proctofoam HC) grams lidocaine 5 % topical ointment 1 applic topical QID PRN pain #30 04/11/24 04/19/24 Rx grams bupropion HCl 150 mg 24 hr tablet, 150 mg PO QAM 04/17/24 04/19/24 History extended release mirtazapine 7.5 mg tablet 7.5 mg PO HS 04/17/24 04/19/24 History varenicline 1 mg tablet 1 mg PO BID 04/17/24 04/19/24 History Past Med/Surg History Problem List (Updated 04/19/24 @ 16:04 by Jackie Jaramillo PA-C) Nausea (Acute) Chest pain (Acute) Elevated troponin (Acute) Chest pain not due to acute coronary syndrome (Acute) Bleeding external hemorrhoids (Acute) Non-compliance (Acute) Fluid overload (Acute) Uremia (Acute) Anemia (Acute) Depression (Acute) Weakness (Acute) Sleep deprivation (Acute) Hallucinations (Acute) Anemia (Acute) Dialysis patient (Acute) Medical non-compliance (Acute) Acute uremia (Acute) Shortness of breath (Acute) Elevated troponin (Acute) Acute hyperkalemia (Acute) SOB (shortness of breath) (Acute) SOB (shortness of breath) (Acute) CHF (congestive heart failure) (Acute) Acute uremia (Acute) Somnolence (Acute) Medical non-compliance (Acute) Elevated troponin (Acute) Dialysis patient (Acute) Renal failure (Acute) Hyperkalemia (Acute) Thrombocytopenia COVID-19 (Acute) Renal osteodystrophy Anemia in ESRD (end-stage renal disease) ESRD (end stage renal disease) on dialysis (Acute) DM2 (diabetes mellitus, type 2) (Acute) Anxiety Depression Major depressive disorder, recurrent, in partial remission Depression with anxiety Anemia of chronic disease Status post fall last fallNovember 2022 > nasal fx / knee pain, no surgery for either injury > resolved per pt report Prolonged QT interval (Acute) no cardio HTN (hypertension) (Acute) Anemia due to end stage renal disease (Acute) FSGS (focal segmental glomerulosclerosis) (Chronic) DX INITIALLY 2012 (CAUSING ESRD 2012) Medical History (Updated 04/19/24 @ 16:04 by Jackie Jaramillo PA-C) Mood disorder Anxiety disorder, unspecified Abnormal chest xray Elevated lactic acid level Transaminitis Pneumonia Metabolic encephalopathy Acute non-ST elevation myocardial infarction (NSTEMI) Pulmonary edema Acute hyperkalemia Acute alteration in mental status Renal failure (ARF), acute on chronic Encephalopathy Rectal bleeding reason for up coming colonoscopy Facial fracture GI bleed ESRD (end stage renal disease) on dialysis Symptomatic anemia Tobacco abuse DVT prophylaxis Fistula right arm (currently being used) and left arm Dialysis patient SATURDAY/SAT/SATURDAY AT [facility] GERD (gastroesophageal reflux disease) Bipolar disorder Restless leg syndrome Peripheral neuropathy Asthma rare res inh use History of abnormal cervical Papanicolaou smear Elevated troponin Acute electrocardiogram changes Surgical History (Updated 04/19/24 @ 15:47 by Jackie Jaramillo PA-C) H/O eye surgery LASER SURGERY LEFT History of surgery left arm d/t clot in arm from AV fistula use @ [facility] History of surgery (~09/09/20) perm cath > since removed History of colonoscopy Kidney transplant recipient 2013 AT [facility] History of tooth extraction three TOOTH History of cardiac cath 2016 NO STENTS AVF (arteriovenous fistula) bilat upper arms ---currently using right for dialysis Family History Grandmother Hx of CABG Mother Diabetes Father Crohn's disease Grandfather (Maternal) Diabetes Uncle Diabetes Grandmother (Maternal) Family history of reaction to anesthesia difficulty waking with colonoscopy Social History Smoking Status: Former smoker Tobacco Type: Cigarettes Cigarettes Per Day: 20; Second Hand Exposure: No; Do You Dip or Chew Tobacco: No; Hx Alcohol Use: No Hx Substance Use: Yes Substance Use Type Other:: medical marijuana at HS Preferred Language: Maori Communication Ability: Effective Manufacturing Manager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 Beliefs That Will Affect Care: None marital status: Single Current Living Situation: Homeless Current Living Situation Comment: boyfriend recently kicked patient out of house pt reports How many Children do You have: 3 Feels Safe at Home: Yes Assistive Devices: None Review of Systems Review of Systems: At least ten systems reviewed and negative except as noted in the HPI. Physical Exam Physical Exam: Please see Dr. Jackson's addendum for physical exam. Results & Data Results & Data Vital Signs (Past 12 Hours) Vital Signs Temp Pulse Pulse Resp BP Pulse Ox O2 Del Method 04/19/24 13:00 87 18 95 Room Air 04/19/24 11:34 91 H 04/19/24 11:22 100 Room Air 04/19/24 11:22 36.8 C 99 H 18 147/89 H 100 Room Air Laboratory Results Short CBC 04/19/24 Range/Units 13:15 WBC 4.65 L (4.8-10.8) K/ul Hgb 10.2 L (12.0-16.0) g/dl Hct 30.9 L (37.0-47.0) % Plt Count 106 L (130-400) K/uL BMP 04/19/24 13:15 Sodium 135 L Potassium 4.7 Chloride 88 L Carbon Dioxide 31 BUN 66 H Creatinine 9.41 H* Glucose 104 H Calcium 10.2 Liver Function 04/19/24 Range/Units 13:15 Total Bilirubin 0.6 (0.2-1.0) mg/dl AST 16 (13-39) U/L ALT 11 (7-52) U/L Alkaline Phosphatase 113 H (34-104) U/L Albumin 4.0 (3.4-5.0) gm/dl Diagnostic Findings Chest X-Ray 04/19/24 11:49 XR chest 1V portable HISTORY: Atypical chest pain COMPARISON: Chest 04/17/2024. FINDINGS: The cardiac silhouette is mildly enlarged. No pneumothorax. No pleural effusions. There is mild central pulmonary vascular congestion without overt edema. This has slightly progressed. No new focal lung consolidations. No acute fractures. Vascular stents are unchanged in position. IMPRESSION: Cardiomegaly with slight progression of the mild pulmonary vascular congestion. ACT 112: Negative or not required by law. Electronically signed by: Jose Jenkins M.D. 04/19/2024 12:21 PM ECG Additional Comments: EKG reviewed - NSR at 93 bpm per minute, no acute ST elevation. QTc 507 Supervising Physician Co-Signing Physician Notes 38-year-old female with PMH of DM type II diet-controlled, ESRD on HD MWF (history of failed renal transplant), HTN, depression and anxiety, bipolar disorder, GERD, history of DVT and PE no longer on anticoagulation, medical noncompliance, history of pelvic fracture, chronic anemia, history of migraine, ongoing tobacco abuse, chronic polyp/diverticulosis presents with chest pain since . Pt reports getting "GI bug" a week ago and has since resolved. Pt stated her dialysis on Saturday was cut short by 72 min because she had chest pain. Per her, her chest pain was initially on and off, now it was constant since last evening until she received fentanyl in the ED which took away her pain. She reports sharp/stabbing central chest pain and not sure if it is going to her left shoulder or it is her chronic shoulder pain (she has chronic left shoulder pain). Patient reports some nausea, denies vomiting/fever/sore throat /cough/palpitation/belly pain. Patient denies acute changes in her bowel habit. Patient does not make urine. Patient reports decreased appetite since . Patient reports quitting smoking 37-day ago, has been smoking 1 packs a day on average since age 18. Denies alcohol and recreational drug use. Is full code. Chest pain, rule out ACS: Troponin elevated at 900 at presentation, patient hemodialysis on Saturday was cut short by 72-minute. Likely elevated in the setting of ESRD on hemodialysis. EKG with normal sinus rhythm, no acute ST or T changes. Trend troponin. EKG as needed with chest pain, nitroglycerin sublingual as needed, echo. Dicofenac gel for possible msk pain. If worsening chest pain or continued significant troponin elevation, consider cardiology consult. ESRD on hemodialysis: Nephrology consult to assist with hemodialysis. Mild volume overload in the setting of ESRD on hemodialysis: CXR with mild pulmonary vascular congestion, expect to improve with hemodialysis. Patient does not make urine. On exam: GENERAL: Alert and oriented x3. NAD, on RA. HEENT: No pallor, no icterus. Pupils equal, round and reactive to light. Oral mucosa moist. NECK: No JVD, no neck masses. HEART: S1 and S2 heard. Regular rate and rhythm. No murmur, no gallop. RESPIRATORY SYSTEM: Normal AP diameter. No accessory muscle use. No wheezing, bb crackles. ABDOMEN: Soft, bowel sounds present, nontender, no distention. CENTRAL NERVOUS SYSTEM: No facial droop. Speech is clear. Obeys simple commands. Moves extremities. EXTREMITIES: No edema, no erythema seen. BUE w/ AV fistula noted. Painful ROM at left shoulder I have seen and examined the patient and have discussed the case with the provider above. I agree with the assessment and plan as stated. (7) Anemia Anemia type: unspecified type Qualified Code(s): D64.9 - Anemia, unspecified
[2024-04-19] MEDS: NITROGLYCERIN SL 0.4 MG/TAB TAB SL PRN (15:24)
[2024-04-19] MEDS ORDERED: GLUCAGON FOR INJ 1 MG VIAL SQ PRN (16:08)
[2024-04-19] MEDS ORDERED: GLUCOSE 40% GEL 15 GM TUBE PO PRN (16:08)
[2024-04-19] MEDS ORDERED: GLUCOSE 10 TAB/TUBE PO PRN (16:08)
[2024-04-19] MEDS ORDERED: DEXTROSE 50% 50 ML SYRINGE IV PRN (16:08)
[2024-04-19] MEDS ORDERED: CARBOHYDRATES FOR HYPOGLYCEMIA PO PRN (16:08)
[2024-04-19] MEDS ORDERED: DICLOFENAC SOD 1% GEL 100 GM TUBE EXT PRN (16:33)
[2024-04-19] MEDS: ACETAMINOPHEN 500 MG TAB PO STA (16:58)
[2024-04-19] MEDS ORDERED: BENZONATATE 100 MG CAPSULE PO PRN (19:57)
[2024-04-19] MEDS ORDERED: ALBUTEROL 0.083% NEBU SOLN 3 ML VIAL INH PRN (19:57)
[2024-04-19] MEDS ORDERED: ONDANSETRON INJ 2 MG/ML 2 ML VIAL IV PRN (19:57)
[2024-04-19] MEDS ORDERED: ALBUTEROL HFA 8 GM INHALER INH PRN (19:57)
[2024-04-19] MEDS ORDERED: CALCIUM ACETATE 667 MG CAP/TAB PO PRN (20:08)
[2024-04-19] MEDS ORDERED: HYDROCORTISONE 2.5% CR 30 GM TUBE EXT PRN (20:28)
[2024-04-19] MEDS ORDERED: HYDROCORTISONE HC 2.5% CRM 30GM TUBE EXT PRN (20:41)
[2024-04-19] MEDS: INSULIN ASPART PER UNIT CHARGE SC SCH (20:54)
[2024-04-19] MEDS: oxyCODONE HCL IR 5 MG TAB (IMMEDIATE RELEASE) PO PRN (20:54)
[2024-04-19] MEDS: GABAPENTIN 400 MG CAP PO SCH (21:36)
[2024-04-19] MEDS: carBAMazepine 200 MG TABLET PO SCH (21:36)
[2024-04-19] MEDS: MIRTAZAPINE TAB 15 MG TAB PO SCH (21:36)
[2024-04-19] MEDS: CINACALCET HCL 90 MG TAB PO SCH (21:37)
[2024-04-19] MEDS: LIDOCAINE 5% OINT 30 GM TUBE TOP PRN (21:37)
[2024-04-20] MEDS: ACETAMINOPHEN 1,000 MG/100 ML VIAL IV STA (03:42)
[2024-04-20] MEDS: ACETAMINOPHEN 1000 MG/100 ML IV IV ONE (03:45)
[2024-04-20] MEDS: PROMETHAZINE 12.5 MG/50.5 ML BAG IV PRN (03:46)
[2024-04-20] MEDS: PROMETHAZINE HCL INJ 25 MG/ML 1 ML VIAL ONE (03:46)
[2024-04-20] MEDS: LORazepam 0.5 MG TAB PO PRN (03:54)
[2024-04-20 04:21] LABS: Hemoglobin 10.4 g/dl (12.0-16.0); Mean Corpuscular Hemoglobin 32.9 pg (25.0-34.0); Mean Corpuscular Hgb Conc 33.5 g/dL (32.0-36.0); Mean Corpuscular Volume 98.1 fL (80.0-100.0); Mean Platelet Volume 10.1 fL (9.4-12.4); Platelet Count 115 K/uL (130-400); RDW Coefficient of Variation 14.9 % (11.5-14.5); RDW Standard Deviation 54.1 fL (36.4-46.3); Red Blood Count 3.16 M/uL (4.20-5.40); White Blood Count 6.92 K/ul (4.8-10.8)
[2024-04-20 04:32] LABS: Partial Thromboplastin Time 27 Seconds (21-31)
[2024-04-20 04:48] LABS: Calcium 8.9 mg/dl (8.6-10.3); Creatinine Clr Calc Pharmacy 7.9 ml/min; Est GFR (African American) 4.8 ml/min; Est GFR (Non-African American) 4.1 ml/min; Potassium 5.4 mmol/L (3.5-5.1)
[2024-04-20 07:07] LABS: Estimated Average Glucose 114 mg/dl; Hemoglobin A1C 5.6 % (4.5-5.6)
[2024-04-20] MEDS ORDERED: CALCIUM ACETATE 667 MG CAP/TAB PO SCH (08:00)
[2024-04-20] MEDS: GABAPENTIN 400 MG CAP PO STA (08:42)
[2024-04-20] MEDS: PANTOprazole 40 MG TAB PO SCH (08:49)
[2024-04-20] MEDS: CALCIUM ACETATE 667 MG CAP/TAB PO SCH (08:50)
[2024-04-20] MEDS: FLUTICASONE/VILANTEROL 200/25MCG 14 PUFFS/INHALER INH SCH (08:50)
[2024-04-20] MEDS: NEPHROCAPS PO SCH (08:51)
[2024-04-20] MEDS: buPROPion XL 150 MG TABCR PO SCH (08:51)
[2024-04-20] MEDS: hydrOXYzine HCl 25 MG TAB PO PRN (08:56)
[2024-04-20] MEDS ORDERED: PNEUMOCOCCAL VACCINE (PCV20) 20-VAL CONJ-DIP CRM/PF 0.5 ML SYR IM ONE (09:00)
--- NOTE | 2024-04-20 11:55 | Nephrology Consultation ---
Date of Consultation April 20, 2024 Assessment & Plan (1) ESRD (end stage renal disease) on dialysis: 38-year-old female with ESRD secondary to diabetes already has failed kidney transplant and she is currently very noncompliant with dialysis. Her potassium is slightly high at 5.4 BUN and creatinine are high and she does have some pulmonary congestion on x-ray. These are all expected findings given ESRD and intermittent compliance. Potassium should come down and we will be taking fluid off. However she shortness treatment quite often because of panic attacks. However at this time she is sleeping comfortably and we are trying not to wake her up unnecessarily. blood pressure is fine. AV fistula is working good. Currently no issues with dialysis. She does have anemia of CKD with a hemoglobin of 10.4 but that is at the goal range of 10-12. Continue EMILY. (2) Chest pain: (3) Elevated troponin: she did have chest pain and her troponin was quite high. From around 74 few days ago on admission was 900+. given ESRD and a extremely high sensitivity of this test it is not easy to ascertain the relevance of this test in this case. She is getting echocardiogram and may even need a cardiology consult. Defer to primary team History of Present Illness Reason for Consultation: ESRD on dialysis with Chest pain Attending Physician: Anthony Zendejas MD History of Present Illness 38/F with longstanding severe DM type II, ESRD on HD MWF (history of failed renal transplant), HTN, bipolar disorder, history of DVT and PE no longer on anticoagulation, medical noncompliance and other medical problems listed below who presents with chest pain x 3 days.Does have chronic left shoulder pain as well but states this pain is different. + Associated nausea and poor appetite but no SOB. Pain resolved with Zofran and fentanyl in ED and is currently comfortable. Missed HD on Saturday due to being sick with a GI bug but did complete a full dialysis session this past Saturday and also saturday. Was found to have a healing pelvic fracture last month and is seeing someone for this. No F/C, cough, congestion, SOB, V, abd pain, diarrhea or constipation. Does not make urine. History of smoking 1ppd since age 18 but quit smoking 35 days ago. trop is very high at 900+ much higher than few days ago but is currently down trending and no Chest pain currently. getting Dialysis throgh AVF. Review of systems----- positive for chest pain and anxiety. 12 systems reviewed and otherwise negative physical examination------ awake alert but currently sleeping 96% on room air blood pressure 119/75 pulse rate 89 temperature 36.7. mucous membranes moist neck is supple no JVD chest bilateral decreased breath sound clear to auscultation CVS S1-S2 regular abdomen is soft nontender extremities trace edema Allergies Allergy/AdvReac Type Severity Reaction Status Date / Time cefaclor Allergy Intermediate Rash Verified 04/17/24 10:42 Cephalosporins Allergy Intermediate Rash Verified 04/17/24 10:42 amoxicillin AdvReac Intermediate VOMITING Verified 04/17/24 10:42 clavulanic acid AdvReac Intermediate VOMITING Verified 04/17/24 10:42 Home Medications Medication Instructions Recorded Confirmed Type albuterol sulfate 2.5 mg/3 mL 2.5 mg inhalation Q4H PRN 06/08/23 04/19/24 History (0.083 %) solution for nebulization Shortness Of Breath Or Wheezing albuterol sulfate 90 mcg/actuation 2 puff inhalation Q6H PRN 06/08/23 04/19/24 History aerosol inhaler Shortness Of Breath Or Wheezing carbamazepine 200 mg tablet 200 mg PO AMPM 06/08/23 04/19/24 History gabapentin 400 mg capsule 400 mg PO TID 06/08/23 04/19/24 History hydroxyzine HCl 25 mg tablet 25 mg PO Q6H PRN Anxiety 06/08/23 04/19/24 History lorazepam 0.5 mg tablet 0.5 mg PO Q8 PRN Anxiety 06/08/23 04/19/24 History mometasone-formoterol HFA 200 2 puff inhalation BID 06/08/23 04/19/24 History mcg-5 mcg/actuation aerosol inhaler (Dulera) omeprazole 20 mg capsule,delayed 20 mg PO DAILYBB 06/08/23 04/19/24 History release vitamin B complex-vitamin C-folic 1 tab PO DAILY 06/08/23 04/19/24 History acid 0.8 mg tablet (Renal-Rika) benzonatate 100 mg capsule 200 mg PO TID PRN Cough 08/29/23 04/19/24 History calcium acetate(phosphat bind) 667 See Rx Instructions .Route .COMPLEX 08/29/23 04/19/24 History mg capsule cinacalcet 90 mg tablet 90 mg PO QDD 08/29/23 04/19/24 History medroxyprogesterone 150 mg/mL 150 mg IM UD 08/29/23 04/19/24 History intramuscular suspension (Depo-Provera) hydrocortisone 1 %-pramoxine 1 % 1 applic [place] QID PRN itching #10 04/11/24 04/19/24 Rx rectal foam (Proctofoam HC) grams lidocaine 5 % topical ointment 1 applic topical QID PRN pain #30 04/11/24 04/19/24 Rx grams bupropion HCl 150 mg 24 hr tablet, 150 mg PO QAM 04/17/24 04/19/24 History extended release mirtazapine 7.5 mg tablet 7.5 mg PO HS 04/17/24 04/19/24 History varenicline 1 mg tablet 1 mg PO BID 04/17/24 04/19/24 History Patient History Medical History Mood disorder Anxiety disorder, unspecified Abnormal chest xray Elevated lactic acid level Transaminitis Pneumonia Metabolic encephalopathy Acute non-ST elevation myocardial infarction (NSTEMI) Pulmonary edema Acute hyperkalemia Acute alteration in mental status Renal failure (ARF), acute on chronic Encephalopathy Rectal bleeding reason for up coming colonoscopy Facial fracture GI bleed ESRD (end stage renal disease) on dialysis Symptomatic anemia Tobacco abuse DVT prophylaxis Fistula right arm (currently being used) and left arm Dialysis patient SATURDAY/SAT/SATURDAY AT [facility] GERD (gastroesophageal reflux disease) Bipolar disorder Restless leg syndrome Peripheral neuropathy Asthma rare res inh use History of abnormal cervical Papanicolaou smear Elevated troponin Acute electrocardiogram changes Surgical History H/O eye surgery LASER SURGERY LEFT History of surgery left arm d/t clot in arm from AV fistula use @ [facility] History of surgery (~09/09/20) perm cath > since removed History of colonoscopy Kidney transplant recipient 2013 AT [facility] History of tooth extraction three TOOTH History of cardiac cath 2016 NO STENTS AVF (arteriovenous fistula) bilat upper arms ---currently using right for dialysis Family History Grandmother Hx of CABG Mother Diabetes Father Crohn's disease Grandfather (Maternal) Diabetes Uncle Diabetes Grandmother (Maternal) Family history of reaction to anesthesia difficulty waking with colonoscopy Social History Smoking Status: Never smoker Tobacco Type: Cigarettes Cigarettes Per Day: 20; Second Hand Exposure: No; Do You Dip or Chew Tobacco: No; Hx Alcohol Use: No Hx Substance Use: No Preferred Language: Liberian Communication Ability: Effective Glost Kiln Placer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 Beliefs That Will Affect Care: None marital status: Single Current Living Situation: Family Current Living Situation Comment: boyfriend recently kicked patient out of house pt reports How many Children do You have: 3 Feels Safe at Home: Yes Safety Concerns: Feels Safe At This Time Assistive Devices: None Results & Data Vital Signs (Past 12 Hours) Vital Signs Temp Pulse Pulse Pulse Resp BP BP 04/20/24 11:30 87 114/73 04/20/24 11:00 88 113/69 04/20/24 10:30 89 114/73 04/20/24 10:00 89 118/78 04/20/24 09:30 82 119/76 04/20/24 09:20 36.7 C 86 04/20/24 08:24 04/20/24 08:23 36.3 C L 87 20 138/94 04/20/24 08:22 04/20/24 03:41 95 H 14 151/102 H 04/20/24 00:25 36.9 C 86 16 144/84 H Pulse Ox Pulse Ox O2 Del Method O2 Del Method 04/20/24 11:30 04/20/24 11:00 04/20/24 10:30 04/20/24 10:00 04/20/24 09:30 04/20/24 09:20 04/20/24 08:24 Room Air 04/20/24 08:23 96 Room Air 04/20/24 08:22 96 Room Air 04/20/24 03:41 94 Room Air 04/20/24 00:25 97 Room Air Laboratory Results CBC renal panel chest x-ray reviewed in detail.
[2024-04-20] MEDS: GABAPENTIN 400 MG CAP PO SCH (14:41)
[2024-04-20] MEDS: oxyCODONE HCL IR 5 MG TAB (IMMEDIATE RELEASE) PO PRN (14:46)
--- NOTE | 2024-04-20 15:07 | Hospitalist Progress Note ---
Date of Service April 20, 2024 Assessment & Plan (1) Chest pain: Plan: Patient is a 38-year-old female with PMH DM type II, ESRD on HD MWF (history of failed renal transplant), HTN, bipolar disorder, history of DVT and PE no longer on anticoagulation, medical noncompliance and other medical problems listed below who presents with chest pain x 3 days. Atypical chest pain Likely due to pulmonary congestion Rule out ACS --CXR:Cardiomegaly with slight progression of the mild pulmonary vascular congestion. --Chronic troponin elevation in setting of renal insufficiency --ECHO pending --Troponin trended down Chest pain improved after dialysis today Will consider cardiology evaluation pending echo results Check lipid panel (2) ESRD (end stage renal disease) on dialysis: (3) Dialysis patient: Plan: Follows with Dr. Nieves. 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 BSG AC HS (5) Asthma: Plan: Stable; continue home inhalers (6) Mood disorder: Plan: Stable Continue Bupropion, Zoloft, carbamazepine, mirtazapine, hydroxyzine PRN, Ativan PRN (7) Anemia: Plan: Anemia of chronic disease Chronic thrombocytopenia Hemoglobin at baseline Monitor platelet count (8) Medical non-compliance: Plan: DVT Px: Heparin SQ Code status: FULL CODE Admission and Anticipated Discharge Date Admission Date: April 19, 2024 Subjective Patient is seen and examined at bedside States chest pain much better when compared to yesterday Reports chest pain to be pleuritic in nature Also reports some dyspnea on exertion and minimal dizziness No other complaints today Had hemodialysis earlier today Review of Systems Review of Systems: All systems reviewed & are unremarkable except as noted in Subjective Physical Exam Physical Exam: Physical Exam: Vitals signs as noted above General Appearance:Obese, no apparent distress Head: normocephalic, Atraumatic Eyes: normal inspection, EOMI Neck: supple, Trachea midline Respiratory/Chest: Normal breath sounds, CTA, No accessory muscle use Cardiovascular: S1, S2, No murmur Abdomen/GI:Soft, Non tender, Bowel sounds present Extremities/Musculoskeletal:normal inspection, no edema Neurologic/Psych:AAOX3, grossly no focal neurological deficits Skin: normal color, warm Results & Data Results & Data Vital Signs (Past 12 Hours) Vital Signs Temp Pulse Pulse Pulse Resp BP BP 04/20/24 14:00 96 H 16 04/20/24 13:35 36.6 C 93 H 118/66 04/20/24 13:00 94 H 115/82 04/20/24 12:30 89 119/75 04/20/24 12:00 86 144/62 H 04/20/24 11:30 87 114/73 04/20/24 11:00 88 113/69 04/20/24 10:30 89 114/73 04/20/24 10:00 89 118/78 04/20/24 09:30 82 119/76 04/20/24 09:20 36.7 C 86 04/20/24 08:24 04/20/24 08:23 36.3 C L 87 20 04/20/24 08:22 04/20/24 03:41 95 H 14 BP Pulse Ox Pulse Ox O2 Del Method O2 Del Method 04/20/24 14:00 121/66 96 Room Air 04/20/24 13:35 04/20/24 13:00 04/20/24 12:30 04/20/24 12:00 04/20/24 11:30 04/20/24 11:00 04/20/24 10:30 04/20/24 10:00 04/20/24 09:30 04/20/24 09:20 04/20/24 08:24 Room Air 04/20/24 08:23 138/94 96 Room Air 04/20/24 08:22 96 Room Air 04/20/24 03:41 151/102 H 94 Room Air Laboratory Results Short CBC 04/20/24 Range/Units 04:06 WBC 6.92 (4.8-10.8) K/ul Hgb 10.4 L (12.0-16.0) g/dl Hct 31.0 L (37.0-47.0) % Plt Count 115 L (130-400) K/uL BMP 04/20/24 04:06 Sodium 133 L Potassium 5.4 H Chloride 86 L Carbon Dioxide 25 BUN 84 H Creatinine 10.55 H* D Glucose 150 H Calcium 8.9 (7) Anemia Anemia type: unspecified type Qualified Code(s): D64.9 - Anemia, unspecified
[2024-04-20] MEDS: ACETAMINOPHEN 325 MG TAB PO PRN (16:30)
[2024-04-20 18:38] LABS: D Dimer 1600 ug/L FEU (0-500)
[2024-04-20] MEDS: HEPARIN SOD 5,000 UNIT/0.5 ML VIAL SQ SCH (21:29)
[2024-04-20] MEDS: POLYETHYLENE (MIRALAX) 17 GM PACK PO PRN (21:35)
[2024-04-20] MEDS: OPTIRAY 320 125ml IV ONE (22:57)
--- NOTE | 2024-04-21 00:20 | Ultrasound Report ---
Exam(s): US VENOUS BILATERAL LOWER EXTREMITIES EXAM: US Duplex Bilateral Lower Extremities Veins CLINICAL HISTORY: Concern for deep vein thrombosis. TECHNIQUE: Real-time duplex ultrasound scan of the bilateral lower extremity veins integrating B-mode two-dimensional vascular structure, Doppler spectral analysis, color flow Doppler imaging and compression. COMPARISON: No relevant prior studies available. FINDINGS: Right deep veins: Unremarkable. No Deep vein thrombosis in the right common femoral, femoral, proximal deep femoral or popliteal veins. The veins demonstrate normal color flow, are normally compressible, with normal phasic flow and/or augmentation response. Right superficial veins: Unremarkable. No thrombus in the visualized right great saphenous vein. Left deep veins: Unremarkable. No Deep vein thrombosis in the left common femoral, femoral, proximal deep femoral or popliteal veins. The veins demonstrate normal color flow, are normally compressible, with normal phasic flow and/or augmentation response. Left superficial veins: Unremarkable. No thrombus in the visualized left great saphenous vein. Soft tissues: No acute findings. No popliteal cyst. IMPRESSION: No deep vein thrombosis of either lower extremity. Electronically signed by: Malorie Herrera MD 04/21/24 00:19 AM
--- NOTE | 2024-04-21 00:22 | CT Scan Report ---
Exam(s): CTA CHEST IV Amt: 118 ml optiray 320 EXAM: CT Angiography Chest With Intravenous Contrast CLINICAL HISTORY: PE. TECHNIQUE: Axial computed tomographic angiography images of the chest with intravenous contrast. MIPS images were created and reviewed. CTDI is 25. 38 mGy and DLP is 762.78 mGy-cm. Automated exposure control was utilized for the study. A dose lowering technique was utilized adhering to the principles of ALARA. MIP reconstructed images were created and reviewed. COMPARISON: Chest radiograph 11/14/2023. FINDINGS: Pulmonary arteries: Unremarkable. No pulmonary embolus. Aorta: Mild atherosclerosis. No thoracic aortic aneurysm. Other veins: There is a vascular stent of the innominate vein. Lungs: Interseptal thickening is concerning for pulmonary edema. No mass. Pleural space: Unremarkable. No significant effusion. No pneumothorax. Heart: Cardiomegaly. No significant pericardial effusion. No evidence of RV dysfunction. Mediastinum: Mediastinal lymphadenopathy measures up to 1 cm. Bones/joints: No fracture. Soft tissues: Unremarkable. Lymph nodes: See above. IMPRESSION: 1. No pulmonary embolus. 2. Interseptal thickening is concerning for pulmonary edema. 3. Cardiomegaly. 4. Mediastinal lymphadenopathy measures up to 1 cm. This could be infectious, blood or malignant. Electronically signed by: Malorie Herrera MD 04/21/24 00:21 AM
[2024-04-21 02:59] VITALS: RESP 18
[2024-04-21 06:47] LABS: Hematocrit (blood only) 32.5 % (37.0-47.0); Hemoglobin 10.5 g/dl (12.0-16.0); Mean Corpuscular Hemoglobin 32.1 pg (25.0-34.0); Mean Corpuscular Hgb Conc 32.3 g/dL (32.0-36.0); Mean Corpuscular Volume 99.4 fL (80.0-100.0); Mean Platelet Volume 10.5 fL (9.4-12.4); Platelet Count 124 K/uL (130-400); RDW Coefficient of Variation 15.4 % (11.5-14.5); RDW Standard Deviation 57.1 fL (36.4-46.3); Red Blood Count 3.27 M/uL (4.20-5.40); White Blood Count 4.48 K/ul (4.8-10.8)
[2024-04-21 07:16] LABS: BUN Creatinine Ratio 6.7 (10-20); Calcium 8.4 mg/dl (8.6-10.3); Chol HDL Ratio 4.7 (0-5); Creatinine Clr Calc Pharmacy 13.5 ml/min; Est GFR (African American) 9.3 ml/min; Potassium 4.8 mmol/L (3.5-5.1)
[2024-04-21 07:19] VITALS: TEMP 98.1
--- NOTE | 2024-04-21 10:18 | Nephrology Progress Note ---
Date of Service April 21, 2024 Assessment & Plan Admission and Anticipated Discharge Date Admission Date: April 19, 2024 Subjective Assessment & Plan (1) ESRD (end stage renal disease) on dialysis: 38-year-old female with ESRD secondary to diabetes already has failed kidney transplant and she is currently very noncompliant with dialysis. Her potassium is slightly high at 5.4 BUN and creatinine are high and she does have some pulmonary congestion on x-ray. These are all expected findings given ESRD and intermittent compliance. blood pressure is fine. AV fistula is working good. Currently no issues with dialysis. K is normal after dialysis. Slightly low na from ESRD. expected finding. She does have anemia of CKD with a hemoglobin of 10.5 but that is at the goal range of 10-12. Continue EMILY. She had CT contrast yesterday for CTA to r/o PE. She has no urine output. Curretn Contrast are isoosmolar and does not need Dialysis necessarily for " contrast Clearance" She can e discharged. Next dialysis outpt at her usual dialysis Center.Does not need nephro clinic Appt. (2) Chest pain: (3) Elevated troponin: she did have chest pain and her troponin was quite high. From around 74 few days ago on admission was 900+. given ESRD and a extremely high sensitivity of this test it is not easy to ascertain the relevance of this test in this case. She is getting echocardiogram and may even need a cardiology consult. Defer to primary team. ECHO was fine and no longer has any chest pain. S--Had dialysis yesterday and no issues. NO chest pain now. physical examination------ awake alert but currently sleeping 96% on room air blood pressure 119/75 pulse rate 89 temperature 36.7. mucous membranes moist neck is supple no JVD chest bilateral decreased breath sound clear to auscultation CVS S1-S2 regular abdomen is soft nontender extremities trace edema Results & Data Vital Signs (Past 12 Hours) Vital Signs Temp Pulse Pulse Resp BP Pulse Ox O2 Del Method 04/21/24 08:00 Room Air 04/21/24 08:00 04/21/24 07:18 36.7 C 87 18 111/76 99 Room Air 04/21/24 07:00 84 04/21/24 02:58 36.5 C 87 18 133/82 96 Room Air 04/21/24 00:22 88 04/20/24 23:35 36.8 C 85 16 119/80 97 Room Air O2 Del Method 04/21/24 08:00 04/21/24 08:00 Room Air 04/21/24 07:18 04/21/24 07:00 04/21/24 02:58 04/21/24 00:22 04/20/24 23:35
[2024-04-21 11:42] VITALS: O2SAT 95
--- NOTE | 2024-04-21 12:50 | Hospitalist Progress Note ---
Date of Service April 21, 2024 Assessment & Plan (1) Chest pain: Plan: Patient is a 38-year-old female with PMH DM type II, ESRD on HD MWF (history of failed renal transplant), HTN, bipolar disorder, history of DVT and PE no longer on anticoagulation, medical noncompliance and other medical problems listed below who presents with chest pain x 3 days. Atypical chest pain Likely due to pulmonary congestion Rule out ACS--Less likely --CXR:Cardiomegaly with slight progression of the mild pulmonary vascular congestion. --CTA:No pulmonary embolus. Interseptal thickening is concerning for pulmonary edema. Cardiomegaly. Mediastinal lymphadenopathy measures up to 1 cm. --Chronic troponin elevation in setting of renal insufficiency --ECHO: No wall motion abnormality. EF 50 to 50%. Grade 1 diastolic dysfunction. --Troponin trended down --Lipid panel within normal limits Chest pain resolved after dialysis Plan to be discharged home today Mediastinal lymphadenopathy Incidental finding on CT Follow-up as outpatient (2) ESRD (end stage renal disease) on dialysis: (3) Dialysis patient: Plan: Follows with Dr. Nieves. 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 BSG AC HS (5) Asthma: Plan: Stable; continue home inhalers (6) Mood disorder: Plan: Stable Continue Bupropion, Zoloft, carbamazepine, mirtazapine, hydroxyzine PRN, Ativan PRN (7) Anemia: Plan: Anemia of chronic disease Chronic thrombocytopenia Hemoglobin at baseline Monitor platelet count (8) Medical non-compliance: Plan: DVT Px: Heparin SQ Code status: FULL CODE Admission and Anticipated Discharge Date Admission Date: April 19, 2024 Subjective Patient is seen and examined at bedside Chest pain resolved States feeling well today Offers no other complaints today Discussed with nephrology today Prefers to be discharged home today Denies any nausea, vomiting, dyspnea, abdominal pain Review of Systems Review of Systems: All systems reviewed & are unremarkable except as noted in Subjective Physical Exam Physical Exam: Physical Exam: Vitals signs as noted above General Appearance:Obese, no apparent distress Head: normocephalic, Atraumatic Eyes: normal inspection, EOMI Neck: supple, Trachea midline Respiratory/Chest: Normal breath sounds, CTA, No accessory muscle use Cardiovascular: S1, S2, No murmur Abdomen/GI:Soft, Non tender, Bowel sounds present Extremities/Musculoskeletal:normal inspection, no edema Neurologic/Psych:AAOX3, grossly no focal neurological deficits Skin: normal color, warm Results & Data Results & Data Vital Signs (Past 12 Hours) Vital Signs Temp Pulse Pulse Resp BP Pulse Ox O2 Del Method 04/21/24 11:42 36.7 C 88 18 106/70 95 Room Air 04/21/24 08:00 Room Air 04/21/24 08:00 04/21/24 07:18 36.7 C 87 18 111/76 99 Room Air 04/21/24 07:00 84 04/21/24 02:58 36.5 C 87 18 133/82 96 Room Air O2 Del Method 04/21/24 11:42 04/21/24 08:00 04/21/24 08:00 Room Air 04/21/24 07:18 04/21/24 07:00 04/21/24 02:58 Laboratory Results Short CBC 04/21/24 Range/Units 06:08 WBC 4.48 L (4.8-10.8) K/ul Hgb 10.5 L (12.0-16.0) g/dl Hct 32.5 L (37.0-47.0) % Plt Count 124 L (130-400) K/uL BMP 04/21/24 06:08 Sodium 132 L Potassium 4.8 Chloride 94 L Carbon Dioxide 23 BUN 41 H D Creatinine 6.10 H* D Glucose 94 Calcium 8.4 L (7) Anemia Anemia type: unspecified type Qualified Code(s): D64.9 - Anemia, unspecified
--- NOTE | 2024-04-21 13:09 | Discharge Summary ---
Date of Service April 21, 2024 Admission HPI Per Admitting Provider This is a 38-year-old female with PMH DM type II, ESRD on HD MWF (history of failed renal transplant), HTN, bipolar disorder, history of DVT and PE no longer on anticoagulation, medical noncompliance and other medical problems listed below who presents with chest pain x 3 days. Started to have chest pain on Saturday during, which was cut short 72 minutes short due to chest pain. When evaluated in ED, troponin was 76 -> 74 and was discharged home. Continued to have chest pain that has increased in frequency from intermittent to constant since then, described as sharp, stabbing pain centrally located radiating towa rds the left. Does have chronic left shoulder pain as well but states this pain is different. + Associated nausea and poor appetite but no SOB. Pain resolved with Zofran and fentanyl in ED and is currently comfortable. Missed HD on Saturday due to being sick with a GI bug but did complete a full dialysis session this past Saturday. Was found to have a healing pelvic fracture last month and is seeing someone for this. No F/C, cough, congestion, SOB, V, abd pain, diarrhea or constipation. Does not make urine. Follows with Dr. Nieves for nephro. History of smoking 1ppd since age 18 but quit smoking 35 days ago. Admission Exam Per Admitting Provider On exam: GENERAL: Alert and oriented x3. NAD, on RA. HEENT: No pallor, no icterus. Pupils equal, round and reactive to light. Oral mucosa moist. NECK: No JVD, no neck masses. HEART: S1 and S2 heard. Regular rate and rhythm. No murmur, no gallop. RESPIRATORY SYSTEM: Normal AP diameter. No accessory muscle use. No wheezing, bb crackles. ABDOMEN: Soft, bowel sounds present, nontender, no distention. CENTRAL NERVOUS SYSTEM: No facial droop. Speech is clear. Obeys simple commands. Moves extremities. EXTREMITIES: No edema, no erythema seen. BUE w/ AV fistula noted. Painful ROM at left shoulder Principal Diagnosis Atypical chest pain ESRD on dialysis Mediastinal lymphadenopathy Discharge Data Allergies Allergy/AdvReac Type Severity Reaction Status Date / Time cefaclor Allergy Intermediate Rash Verified 04/17/24 10:42 Cephalosporins Allergy Intermediate Rash Verified 04/17/24 10:42 amoxicillin AdvReac Intermediate VOMITING Verified 04/17/24 10:42 clavulanic acid AdvReac Intermediate VOMITING Verified 04/17/24 10:42 Consultations 04/19/24 14:20 ED Decision to Admit Stat 04/19/24 15:03 Consult Nephrology Routine Procedures Performed Laboratory Results WBC 4.48 K/ul (4.8-10.8) L 04/21/24 06:08 RBC 3.27 M/uL (4.20-5.40) L 04/21/24 06:08 Hgb 10.5 g/dl (12.0-16.0) L 04/21/24 06:08 Hct 32.5 % (37.0-47.0) L 04/21/24 06:08 MCV 99.4 fL (80.0-100.0) 04/21/24 06:08 MCH 32.1 pg (25.0-34.0) 04/21/24 06:08 MCHC 32.3 g/dL (32.0-36.0) 04/21/24 06:08 RDW Std Deviation 57.1 fL (36.4-46.3) H 04/21/24 06:08 RDW Coeff of Laith 15.4 % (11.5-14.5) H 04/21/24 06:08 Plt Count 124 K/uL (130-400) L 04/21/24 06:08 MPV 10.5 fL (9.4-12.4) 04/21/24 06:08 Immature Gran % (Auto) 0.2 % 04/19/24 13:15 Neut % (Auto) 72.9 % 04/19/24 13:15 Lymph % (Auto) 12.5 % 04/19/24 13:15 Traverse % (Auto) 12.5 % 04/19/24 13:15 Eos % (Auto) 1.5 % 04/19/24 13:15 Baso % (Auto) 0.4 % 04/19/24 13:15 Neut # (Auto) 3.39 K/uL (1.40-6.50) 04/19/24 13:15 Lymph # (Auto) 0.58 K/uL (1.20-3.40) L 04/19/24 13:15 Traverse # (Auto) 0.58 K/uL (0.11-0.59) 04/19/24 13:15 Eos # (Auto) 0.07 K/uL (0.00-0.50) 04/19/24 13:15 Baso # (Auto) 0.02 K/uL (0.00-0.20) 04/19/24 13:15 Immature Gran # (Auto) 0.01 K/uL (0.01-0.20) 04/19/24 13:15 PT 10.9 Seconds (9.0-12.0) 04/19/24 13:15 INR 1.0 (0.9-1.1) 04/19/24 13:15 APTT 27 Seconds (21-31) 04/20/24 04:06 PTT Ratio 1.0 04/20/24 04:06 D-Dimer 1600 ug/L FEU (0-500) H* 04/20/24 16:59 Sodium 132 mmol/L (136-145) L 04/21/24 06:08 Potassium 4.8 mmol/L (3.5-5.1) 04/21/24 06:08 Chloride 94 mmol/L (98-107) L 04/21/24 06:08 Carbon Dioxide 23 mmol/L (21-32) 04/21/24 06:08 Anion Gap 15 (3-11) H 04/21/24 06:08 BUN 41 mg/dl (6-23) H D 04/21/24 06:08 Creatinine 6.10 mg/dl (0.6-1.2) H* D 04/21/24 06:08 Est Cr Clr Drug Dosing 13.5 ml/min 04/21/24 06:08 Est GFR ( Amer) 9.3 ml/min 04/21/24 06:08 Est GFR (Non-Af Amer) 8.0 ml/min 04/21/24 06:08 BUN/Creatinine Ratio 6.7 (10-20) L 04/21/24 06:08 Glucose 94 mg/dl (70-99(Fasting)) 04/21/24 06:08 POC Glucose 131 mg/dl (70-99) H 04/21/24 11:59 Estimat Average Glucose 114 mg/dl 04/20/24 04:06 Hemoglobin A1c 5.6 % (4.5-5.6) 04/20/24 04:06 Calcium 8.4 mg/dl (8.6-10.3) L 04/21/24 06:08 Total Bilirubin 0.6 mg/dl (0.2-1.0) 04/19/24 13:15 AST 16 U/L (13-39) 04/19/24 13:15 ALT 11 U/L (7-52) 04/19/24 13:15 Alkaline Phosphatase 113 U/L (34-104) H 04/19/24 13:15 Troponin I High Sens 462.9 pg/ml (0-14) H* D 04/20/24 04:06 Total Protein 6.8 gm/dl (6.0-8.3) 04/19/24 13:15 Albumin 4.0 gm/dl (3.4-5.0) 04/19/24 13:15 Globulin 2.8 gm/dl (2.5-4.0) 04/19/24 13:15 Albumin/Globulin Ratio 1.4 (0.9-2) 04/19/24 13:15 Triglycerides 137 mg/dl (0-150) 04/21/24 06:08 Cholesterol 163 mg/dl (0-200) 04/21/24 06:08 LDL Cholesterol, Calc 101 mg/dl 04/21/24 06:08 VLDL Cholesterol, Calc 27 mg/dl (0-30) 04/21/24 06:08 HDL Cholesterol 35 mg/dl 04/21/24 06:08 Cholesterol/HDL Ratio 4.7 (0-5) 04/21/24 06:08 Lipase 9 U/L (11-82) L 04/19/24 13:15 Nasal Screen MRSA (PCR) Negative (Negative) 04/20/24 Unknown Impressions Chest X-Ray 04/19/24 11:49 XR chest 1V portable HISTORY: Atypical chest pain COMPARISON: Chest 04/17/2024. FINDINGS: The cardiac silhouette is mildly enlarged. No pneumothorax. No pleural effusions. There is mild central pulmonary vascular congestion without overt edema. This has slightly progressed. No new focal lung consolidations. No acute fractures. Vascular stents are unchanged in position. IMPRESSION: Cardiomegaly with slight progression of the mild pulmonary vascular congestion. ACT 112: Negative or not required by law. Electronically signed by: Jose Jenkins M.D. 04/19/2024 12:21 PM Chest CTA 04/20/24 18:51 Exam(s): CTA CHEST IV Amt: 118 ml optiray 320 EXAM: CT Angiography Chest With Intravenous Contrast CLINICAL HISTORY: PE. TECHNIQUE: Axial computed tomographic angiography images of the chest with intravenous contrast. MIPS images were created and reviewed. CTDI is 25. 38 mGy and DLP is 762.78 mGy-cm. Automated exposure control was utilized for the study. A dose lowering technique was utilized adhering to the principles of ALARA. MIP reconstructed images were created and reviewed. COMPARISON: Chest radiograph 11/14/2023. FINDINGS: Pulmonary arteries: Unremarkable. No pulmonary embolus. Aorta: Mild atherosclerosis. No thoracic aortic aneurysm. Other veins: There is a vascular stent of the innominate vein. Lungs: Interseptal thickening is concerning for pulmonary edema. No mass. Pleural space: Unremarkable. No significant effusion. No pneumothorax. Heart: Cardiomegaly. No significant pericardial effusion. No evidence of RV dysfunction. Mediastinum: Mediastinal lymphadenopathy measures up to 1 cm. Bones/joints: No fracture. Soft tissues: Unremarkable. Lymph nodes: See above. IMPRESSION: 1. No pulmonary embolus. 2. Interseptal thickening is concerning for pulmonary edema. 3. Cardiomegaly. 4. Mediastinal lymphadenopathy measures up to 1 cm. This could be infectious, blood or malignant. Electronically signed by: Malorie Herrera MD 04/21/24 00:21 AM Venous Doppler Study 04/20/24 18:51 Exam(s): US VENOUS BILATERAL LOWER EXTREMITIES EXAM: US Duplex Bilateral Lower Extremities Veins CLINICAL HISTORY: Concern for deep vein thrombosis. TECHNIQUE: Real-time duplex ultrasound scan of the bilateral lower extremity veins integrating B-mode two-dimensional vascular structure, Doppler spectral analysis, color flow Doppler imaging and compression. COMPARISON: No relevant prior studies available. FINDINGS: Right deep veins: Unremarkable. No Deep vein thrombosis in the right common femoral, femoral, proximal deep femoral or popliteal veins. The veins demonstrate normal color flow, are normally compressible, with normal phasic flow and/or augmentation response. Right superficial veins: Unremarkable. No thrombus in the visualized right great saphenous vein. Left deep veins: Unremarkable. No Deep vein thrombosis in the left common femoral, femoral, proximal deep femoral or popliteal veins. The veins demonstrate normal color flow, are normally compressible, with normal phasic flow and/or augmentation response. Left superficial veins: Unremarkable. No thrombus in the visualized left great saphenous vein. Soft tissues: No acute findings. No popliteal cyst. IMPRESSION: No deep vein thrombosis of either lower extremity. Electronically signed by: Malorie Herrera MD 04/21/24 00:19 AM Ordered Studies 04/20/24 18:51 CT angio chest PE protocol Stat US venous doppler LE BI Stat Hospital Course (1) Chest pain: Patient is a 38-year-old female with PMH DM type II, ESRD on HD MWF (history of failed renal transplant), HTN, bipolar disorder, history of DVT and PE no longer on anticoagulation, medical noncompliance and other medical problems listed below who presents with chest pain x 3 days. Atypical chest pain Likely due to pulmonary congestion Rule out ACS--Less likely --CXR:Cardiomegaly with slight progression of the mild pulmonary vascular congestion. --CTA:No pulmonary embolus. Interseptal thickening is concerning for pulmonary edema. Cardiomegaly. Mediastinal lymphadenopathy measures up to 1 cm. --Chronic troponin elevation in setting of renal insufficiency --ECHO: No wall motion abnormality. EF 50 to 50%. Grade 1 diastolic dysfunction. --Troponin trended down --Lipid panel within normal limits Chest pain resolved after dialysis Plan to be discharged home today Mediastinal lymphadenopathy Incidental finding on CT Follow-up as outpatient (2) ESRD (end stage renal disease) on dialysis: (3) Dialysis patient: Follows with Dr. Nieves. Missed HD on Saturday and session was cut short on Saturday 2/2 CP Continue dialysis as per nephrology (4) DM2 (diabetes mellitus, type 2): A1c 5.6 in November 2023 Hold home agents SSI while in-patient BSG AC HS (5) Asthma: Stable; continue home inhalers (6) Mood disorder: Stable Continue Bupropion, Zoloft, carbamazepine, mirtazapine, hydroxyzine PRN, Ativan PRN (7) Anemia: Anemia of chronic disease Chronic thrombocytopenia Hemoglobin at baseline Monitor platelet count (8) Medical non-compliance: DVT Px: Heparin SQ Code status: FULL CODE Total Time Total Time Spent Total Time Spent (In Minutes): 55 minutes Discharge Plan Discharge Items Patient Disposition: Home - Self-Care Reason For Visit: CP, ESRD ON HD Discharge Diagnosis: Atypical chest pain ESRD on dialysis Mediastinal lymphadenopathy Activity: Per Instructions section Exercise/Sports: Gradually increase as tolerated Non-emergency contact: Primary Care Provider, Fence Installer Foreman and Profile Saw Operator Call non-emergency contact if: you have any medication questions, your symptoms worsen, your pain is concerning for you and you have a fever Follow-up/Referrals: Adolph Aldridge MD [Primary Care Provider] - (Date & Time 04/28/2024 11:20 AM Provider Adolph Aldridge MD [facility] ) Diet: Dialysis Renal and Heart Healthy Addtl Attending Provider Instructions: Follow-up with your primary care physician Dr. Aldridge on 04/28/2024 11:20 AM Follow-up with your hedis manager for possible outpatient stress test to rule out coronary artery disease Follow-up with your monomer recovery supervisor for dialysis -- You are incidentally noted to have enlarged lymph node on CT chest. Discussed with your physician for further recommendations. Seek immediate medical attention if your symptoms reoccur or worsen Please take all medications as instructed on discharge list below. Please call if you have any questions or problems. You can reach a [facility] hospitalist on duty at [facility] 24 hours a day by calling [phone] Pending Studies at Discharge: No Stand-Alone Forms: My [facility], Smoking Cessation Medications and DC Order Prescriptions: Continued albuterol sulfate 2.5 mg /3 mL (0.083 %) Solution For Nebulization 2.5 mg INHALATION Q4H PRN (Reason: Shortness Of Breath Or Wheezing) gabapentin 400 mg capsule 400 mg PO TID carbamazepine 200 mg tablet 200 mg PO AMPM lorazepam 0.5 mg tablet 0.5 mg PO Q8 MDD panic attacks/before dialysis PRN (Reason: Anxiety) omeprazole 20 mg capsule,delayed release(DR/EC) 20 mg PO DAILYBB hydroxyzine HCl 25 mg tablet 25 mg PO Q6H PRN (Reason: Anxiety) Renal-Rika 0.8 mg Tablet 1 tab PO DAILY Rx Instructions: PER PT "CAN'T FIND IN STORE, BEEN OUT FOR A WHILE". albuterol sulfate 90 mcg/actuation Hfa Aerosol Inhaler 2 puff INHALATION Q6H PRN (Reason: Shortness Of Breath Or Wheezing) Dulera 200-5 mcg/actuation Hfa Aerosol Inhaler 2 puff INHALATION BID cinacalcet 90 mg tablet 90 mg PO QDD benzonatate 100 mg capsule 200 mg PO TID PRN (Reason: Cough) medroxyprogesterone [Depo-Provera] 150 mg/mL Suspension 150 mg IM UD Rx Instructions: Every 3 months calcium acetate(phosphat bind) 667 mg Capsule See Rx Instructions .ROUTE .COMPLEX Rx Instructions: Take 2001mg by mouth with each meal and 1334mg with each snack Proctofoam HC 1-1 % foam 1 applic IA QID PRN (Reason: itching) Qty: 10 3RF lidocaine 5 % ointment 1 applic topical QID PRN (Reason: pain) Qty: 30 3RF Rx Instructions: Apply to rectal area up to 4 times daily as needed. bupropion HCl 150 mg tablet extended release 24 hr 150 mg PO QAM mirtazapine 7.5 mg tablet 7.5 mg PO HS varenicline 1 mg tablet 1 mg PO BID Discharge Orders: Discharge Order (Routine); Ordered 04/21/24 Ordered By: Anthony Zendejas Admission Data Admit Date/Time: 04/19/24 15:01 Attending Provider: Anthony Zendejas Admit Provider: Juwan Jackson Primary Care Provider: Adolph Aldridge Other Providers: Juwan Jackson; Leah Nieves
[2024-04-21 13:27] VITALS: BP 106/72; PULSE 87
--- NOTE | 2024-04-22 05:26 | Electrocardiogram Report ---
Test Reason : Blood Pressure : */* mmHG Vent. Rate : 92 BPM Atrial Rate : 92 BPM P-R Int : 154 ms QRS Dur : 114 ms QT Int : 426 ms P-R-T Axes : 37 -12 29 degrees QTcB Int : 526 ms Normal sinus rhythm Minimal voltage criteria for LVH, may be normal variant ( Sagar product ) Poor R wave progression, consider anterior PR vs. lead placement vs. LVH Prolonged QT Abnormal ECG When compared with ECG of 19-Apr-2024 11:17, No significant change was found Confirmed by Johny Rodriguez ([id number]) on 04/22/2024 5:25:45 AM Referred By: REFERRED SELF Confirmed By: Johny Rodriguez
--- NOTE | 2024-04-22 05:36 | Electrocardiogram Report ---
Test Reason : Blood Pressure : */* mmHG Vent. Rate : 91 BPM Atrial Rate : 91 BPM P-R Int : 206 ms QRS Dur : 96 ms QT Int : 414 ms P-R-T Axes : 39 -52 -4 degrees QTcB Int : 509 ms Age and gender specific ECG analysis Normal sinus rhythm Left axis deviation Moderate voltage criteria for LVH, may be normal variant ( R in aVL , Sagar product ) Anterolateral infarct (cited on or before 21-Mar-2018) Prolonged QT Abnormal ECG When compared with ECG of 20-Apr-2024 03:38, QRS axis Shifted left Confirmed by Johny Rodriguez ([id number]) on 04/22/2024 5:36:05 AM Referred By: REFERRED SELF Confirmed By: Johny Rodriguez
--- NOTE | 2024-04-23 04:02 | Electrocardiogram Report ---
Test Reason : Blood Pressure : */* mmHG Vent. Rate : 93 BPM Atrial Rate : 93 BPM P-R Int : 152 ms QRS Dur : 104 ms QT Int : 408 ms P-R-T Axes : 52 -41 31 degrees QTcB Int : 507 ms Normal sinus rhythm Possible Left atrial enlargement Left axis deviation Left ventricular hypertrophy ( R in aVL , Sagar product ) Possible Lateral infarct (cited on or before 21-Mar-2018) Poor R wave progression, consider anterior [place] vs. lead placement vs. LVH Prolonged QT Abnormal ECG When compared with ECG of 17-Apr-2024 08:46, No significant change was found Confirmed by Alla Escobar ([id number]) on 04/19/2024 7:32:47 PM Referred By: Confirmed By: Alla Escobar
--- NOTE | 2024-04-23 15:03 | Coding Query ---
CODING QUERY To promote full compliance with coding requirements relating to patient care, provider participation is requested in all cases of quality eng uncertainty. Please assist us with the question(s) below: Clinical Indicators: ED Note: * Patient with chest pain. * end-stage renal disease on dialysis * Troponin is elevated today 901...This could be from some fluid overload as she does not have obvious findings of ACS * Do question a little bit of demand given the x-ray findings for some slight fluid overload. H&P: * Missed HD on Saturday and session was cut short on Wednesday 09/27 CP Discharge Summary: * Atypical chest pain * Likely due to pulmonary congestion * Rule out ACS--Less likely * XR:Cardiomegaly with slight progression of the mild pulmonary vascular congestion. * CTA:No pulmonary embolus. Interseptal thickening is concerning for pulmonary edema. * Chronic troponin elevation in setting of renal insufficiency * ECHO: No wall motion abnormality. EF 50 to 50%. Grade 1 diastolic dysfunction * Chest pain resolved after dialysis Coding Question(s): Are you able to further specify the etiology of the pulmonary vascular congestion? ( x) Fluid overload ( ) Pneumonia ( ) Other (please specify) ( ) Unable to determine. Thank you Nighat Michel Principal Diagnosis: "that condition established after study, to be chiefly responsible for occasioning the admission of the patient to the hospital for care." Co-Existing Principal Diagnosis: "when two or more diagnoses equally meet the criteria for principal diagnosis as determined by the circumstances of admission, diagnostic work up, and/or therapy provided, and the Alphabetic Index, Tabular List, or another coding guideline does not provide sequencing direction, any one of the diagnoses may be sequenced first." "When the physician has documented what appears to be a current diagnosis in the body of the record, but has not included the diagnosis in the final diagnostic statement, the physician should be asked whether the diagnosis should be added." (Source Coding [facility] 2 QTR90. p3-4) MATTHEW
== END 2024-04-21 14:21 | disposition home or self-care (01) | DRG 640 ==
LOC: ED 11:09 → EDINP 15:01 → SUATTDRO 15:01 → 2N 04-20 15:47

== ENCOUNTER 2024-04-28 22:00 | Inpatient (IN) ==
--- NOTE | 2024-04-28 23:03 | Emergency Department Note ---
Impression & Plan Acute hyperkalemia, ESRD on dialysis, Chest pain ED Provider Note NAME: NATHALIA DUTTON AGE: 38 SEX: F : 1985 ARRIVES VIA: Ambulance INFORMANT: Patient, triage note ED PROVIDER(S): Karan Santiago MD CHIEF COMPLAINT: Chest pain MEDICAL DECISION MAKING: Patient presented due to concern for chest pain. IV was established and blood work was obtained. Patient was ordered IV fentanyl 25 mcg. Patient with a normal white count hemoglobin 9.4 chronic and stable. Platelet count 125 very mild thrombocytopenia the patient has had thrombocytopenia in the past. Kidney function potassium of 6. Creat of 11.4. Troponin is 210. This is downtrending from prior. Patient does have a dialysis appointment later today. The patient's most recent troponin at the time of discharge on April 20 was 462. The patient's potassium was 6 was treated with IV insulin dextrose albuterol and after discussing with Dr. Zambrano 2 ampoules of bicarb and Lokelma. Patient did have a repeat BMP completed which showed an improvement in her potassium to 5.8. I did convey this to the patient who is now concerned that she would be unable to make her dialysis appointment this morning. She stated that she required a ride which would take a significant amount of time to get here and then subsequently home to get her dialysis bag and then to her dialysis appointment. I did offer to try and arrange for the patient to go directly to [facility] this morning but the patient stated that she would be unable to do so. Given this concern that the patient would miss a second dialysis appointments I did speak with the on-call hospital service Dr. Morgan and the patient was admitted to the medicine service. Critical Care: I have personally spent 40 minutes of critical care time in direct management of this patient. This includes bedside care, interpretation of diagnostic studies, and testing, discussion with consultants, patient, and family members, and other require inpatient management activities. This 40 minutes is in excess of all separately billable procedures. Discussion w/ other healthcare providers: Dr. Zambrano nephrology Dr. Morgan inpatient medicine service Prior /Outside records reviewed: I reviewed a discharge summary from April [address] Zendejas. Known history of type 2 diabetes ESRD on HD failed renal transplant hypertension bipolar disorder DVT PE not on anticoagulation and history of noncompliance who presented with chest pain. Troponin initially 76 subsequently to 74. Patient did have CT angiography of the chest completed that time with IV contrast. No PE noted in the report was from April 20. Mediastinal lymphadenopathy noted pulmonary edema and cardiomegaly. Bilateral DVT studies negative. Echo completed EF of 50% grade 1 diastolic dysfunction. Differential diagnosis: Cardiac ischemia, aortic dissection, pulmonary embolism, pneumothorax, pneumonia, pericarditis, myocarditis, GERD, cholecystitis, pancreatitis, musculoskeletal, as well as other pathologies were considered. Diagnostics, as interpreted by me: ECG: Normal sinus rhythm, rate of 100, prolonged FL, left axis deviation, Q waves noted anteriorly and laterally. EKG appears grossly unchanged from comparison April 20, 2024. Cardiac monitoring: An order was placed for continuous cardiac monitoring. The monitor shows a rate of 95 with sinus rhythm. Patient was placed on pulse oximetry Medical decision rules: None Imaging studies: I informally interpreted the patient's chest x-ray without obvious pneumonia or pneumothorax with formal report to follow. HPI: Patient presents due to concern for chest pain. Patient reportedly did go to her PCP appointment today went home took a nap and when she awoke she had left-sided chest pain rating down her left arm. Patient denies any falls or trauma in the last 1 to 2 weeks. No cough or fever. Patient denies any leg swelling. Patient reports that she found out about having a broken pelvis at the end of February but this likely happened earlier on in the month. Patient does endorse missing her last dialysis appointment yesterday due to oversleeping. Patient does follow with Dr. Esteban. She does not make urine. The patient has a prior history of a failed kidney transplant. Patient states that her pain has been constant stabbing and currently 10 out of 10. The patient did take some Tylenol but without avail. PAST MEDICAL HISTORY: See Below PAST SURGICAL HISTORY: See Below SOCIAL HISTORY: See Below HOME MEDICATIONS: See Below ALLERGIES: See Below VITALS: See Below PHYSICAL EXAMINATION: GENERAL: NAD, non-toxic. EYE EXAM: Normal conjunctiva. PERRL, no anisocoria and EOM's grossly intact w/o pain. OROPHARYNX: Moist mucus membranes, grossly normal dentition. NECK: Trachea midline, no stridor. LUNGS: Clear to auscultation. Normal chest wall mechanics. HEART: NSR, no MRG. ABDOMEN: Abdomen soft, non-tender, no masses, no rebound or guarding. BACK: No CVA TTP. SKIN: No rashes and no bruising. UPPER EXTREMITIES: Right upper extremity AV fistula with palpable thrill. LOWER EXTREMITIES: Grossly normal, no edema. NEURO EXAM: A&O x3, cranial nerves II-XII grossly intact, normal speech, moves all 4 extremities. Past Med/Surg History Problem List (Updated 04/29/24 @ 02:36 by Karan Santiago MD) Chest pain (Acute) ESRD on dialysis (Acute) Acute hyperkalemia (Acute) Elevated troponin (Acute) Chest pain not due to acute coronary syndrome (Acute) Bleeding external hemorrhoids (Acute) Non-compliance (Acute) Fluid overload (Acute) Uremia (Acute) Anemia (Acute) Depression (Acute) Weakness (Acute) Sleep deprivation (Acute) Hallucinations (Acute) Anemia (Acute) Dialysis patient (Acute) Medical non-compliance (Acute) Acute uremia (Acute) Shortness of breath (Acute) Elevated troponin (Acute) Acute hyperkalemia (Acute) SOB (shortness of breath) (Acute) SOB (shortness of breath) (Acute) CHF (congestive heart failure) (Acute) Acute uremia (Acute) Somnolence (Acute) Medical non-compliance (Acute) Elevated troponin (Acute) Dialysis patient (Acute) Renal failure (Acute) Hyperkalemia (Acute) Thrombocytopenia COVID-19 (Acute) Renal osteodystrophy Anemia in ESRD (end-stage renal disease) ESRD (end stage renal disease) on dialysis (Acute) DM2 (diabetes mellitus, type 2) (Acute) Anxiety Depression Major depressive disorder, recurrent, in partial remission Depression with anxiety Anemia of chronic disease Status post fall last fallNovember 2022 > nasal fx / knee pain, no surgery for either injury > resolved per pt report Prolonged QT interval (Acute) no cardio HTN (hypertension) (Acute) Anemia due to end stage renal disease (Acute) FSGS (focal segmental glomerulosclerosis) (Chronic) DX INITIALLY 2012 (CAUSING ESRD 2012) Medical History Mood disorder Anxiety disorder, unspecified Abnormal chest xray Elevated lactic acid level Transaminitis Pneumonia Metabolic encephalopathy Acute non-ST elevation myocardial infarction (NSTEMI) Pulmonary edema Acute hyperkalemia Acute alteration in mental status Renal failure (ARF), acute on chronic Encephalopathy Rectal bleeding reason for up coming colonoscopy Facial fracture GI bleed ESRD (end stage renal disease) on dialysis Symptomatic anemia Tobacco abuse DVT prophylaxis Fistula right arm (currently being used) and left arm Dialysis patient SATURDAY/SAT/SATURDAY AT [facility] GERD (gastroesophageal reflux disease) Bipolar disorder Restless leg syndrome Peripheral neuropathy Asthma rare res inh use History of abnormal cervical Papanicolaou smear Elevated troponin Acute electrocardiogram changes Surgical History H/O eye surgery LASER SURGERY LEFT History of surgery left arm d/t clot in arm from AV fistula use @ [facility] History of surgery (~09/09/20) perm cath > since removed History of colonoscopy Kidney transplant recipient 2013 AT [facility] History of tooth extraction three TOOTH History of cardiac cath 2016 NO STENTS AVF (arteriovenous fistula) bilat upper arms ---currently using right for dialysis Family History Grandmother Hx of CABG Mother Diabetes Father Crohn's disease Grandfather (Maternal) Diabetes Uncle Diabetes Grandmother (Maternal) Family history of reaction to anesthesia difficulty waking with colonoscopy Social History Smoking Status: Former smoker Tobacco Type: Cigarettes Cigarettes Per Day: 20; Second Hand Exposure: No; Do You Dip or Chew Tobacco: No; Hx Alcohol Use: No Hx Substance Use: No Preferred Language: Turkish Communication Ability: Effective Police Patrol Officer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 Beliefs That Will Affect Care: None marital status: Single Current Living Situation: Family Current Living Situation Comment: boyfriend recently kicked patient out of house pt reports How many Children do You have: 3 Feels Safe at Home: Yes Assistive Devices: Crutches Allergies Allergies Allergy/AdvReac Type Severity Reaction Status Date / Time cefaclor Allergy Intermediate Rash Verified 04/29/24 00:26 Cephalosporins Allergy Intermediate Rash Verified 04/29/24 00:26 amoxicillin AdvReac Intermediate VOMITING Verified 04/29/24 00:26 clavulanic acid AdvReac Intermediate VOMITING Verified 04/29/24 00:26 Home Meds Home Medications Medication Instructions Recorded Confirmed albuterol sulfate 2.5 mg/3 mL 2.5 mg inhalation Q4H PRN 06/08/23 04/28/24 (0.083 %) solution for nebulization Shortness Of Breath Or Wheezing albuterol sulfate 90 mcg/actuation 2 puff inhalation Q6H PRN 06/08/23 04/28/24 aerosol inhaler Shortness Of Breath Or Wheezing carbamazepine 200 mg tablet 200 mg PO AMPM 06/08/23 04/29/24 gabapentin 400 mg capsule 400 mg PO TID 06/08/23 04/29/24 hydroxyzine HCl 25 mg tablet 25 mg PO Q6H PRN Anxiety 06/08/23 04/29/24 lorazepam 0.5 mg tablet 0.5 mg PO Q8 PRN Anxiety 06/08/23 04/29/24 mometasone-formoterol HFA 200 2 puff inhalation BID 06/08/23 04/29/24 mcg-5 mcg/actuation aerosol inhaler (Dulera) omeprazole 20 mg capsule,delayed 20 mg PO DAILYBB 06/08/23 04/29/24 release vitamin B complex-vitamin C-folic 1 tab PO DAILY 06/08/23 04/29/24 acid 0.8 mg tablet (Renal-Rika) benzonatate 100 mg capsule 200 mg PO TID PRN Cough 08/29/23 04/29/24 calcium acetate(phosphat bind) 667 2,001 mg PO UD 08/29/23 04/29/24 mg capsule cinacalcet 90 mg tablet 90 mg PO QDD 08/29/23 04/29/24 medroxyprogesterone 150 mg/mL 150 mg IM UD 08/29/23 04/29/24 intramuscular suspension (Depo-Provera) bupropion HCl 150 mg 24 hr tablet, 150 mg PO QAM 04/17/24 04/29/24 extended release mirtazapine 7.5 mg tablet 7.5 mg PO HS 04/17/24 04/29/24 varenicline 1 mg tablet 1 mg PO BID 04/17/24 04/29/24 Previous Rx's Medication Instructions Recorded hydrocortisone 1 %-pramoxine 1 % 1 applic FL QID PRN itching #10 04/11/24 rectal foam (Proctofoam HC) grams lidocaine 5 % topical ointment 1 applic topical QID PRN pain #30 04/11/24 grams Results & Data (ED) Vital Signs Vital Signs - 24 hr 04/28/24 21:46 04/28/24 21:46 04/28/24 22:25 Temperature 36.7 C Temperature Source Oral Pulse Rate 99 H 96 H Pulse Rate [Right Finger] Respiratory Rate 22 Blood Pressure 143/93 H Blood Pressure [Right Arm] Blood Pressure Mean 109 Blood Pressure Mean [Right Arm] Blood Pressure Position Sitting Pulse Oximetry 95 96 Oxygen Delivery Method Room Air Room Air Sepsis Recent Fever Within 48 Hours No Sepsis New/Unexplained Change in Mental Status No Sepsis Action Taken by Nursing No Action Required 04/28/24 22:50 04/28/24 22:50 04/28/24 23:01 Temperature 36.7 C Temperature Source Oral Pulse Rate 95 H Pulse Rate [Right Finger] 94 H Respiratory Rate 22 18 Blood Pressure Blood Pressure [Right Arm] 143/93 H Blood Pressure Mean Blood Pressure Mean [Right Arm] 109 Blood Pressure Position Pulse Oximetry 96 96 96 Oxygen Delivery Method Room Air Room Air Room Air Sepsis Recent Fever Within 48 Hours Sepsis New/Unexplained Change in Mental Status Sepsis Action Taken by Nursing 04/29/24 02:18 Temperature Temperature Source Pulse Rate 97 H Pulse Rate [Right Finger] Respiratory Rate Blood Pressure Blood Pressure [Right Arm] Blood Pressure Mean Blood Pressure Mean [Right Arm] Blood Pressure Position Pulse Oximetry Oxygen Delivery Method Sepsis Recent Fever Within 48 Hours Sepsis New/Unexplained Change in Mental Status Sepsis Action Taken by [facility] Medications Current Medication List: was personally reviewed by me Laboratory Data Attestation: I reviewed the patient's lab results. 04/28/24 23:04 04/29/24 01:22 Lab Results 04/28/24 04/28/24 04/29/24 Range/Units 23:04 23:05 01:22 WBC 7.49 (4.8-10.8) K/ul RBC 2.88 L (4.20-5.40) M/uL Hgb 9.4 L (12.0-16.0) g/dl Hct 28.5 L (37.0-47.0) % MCV 99.0 (80.0-100.0) fL MCH 32.6 (25.0-34.0) pg MCHC 33.0 (32.0-36.0) g/dL RDW Std Deviation 57.8 H (36.4-46.3) fL RDW Coeff of Laith 16.0 H (11.5-14.5) % Plt Count 125 L (130-400) K/uL MPV 9.6 (9.4-12.4) fL Immature Gran % (Auto) 0.4 % Neut % (Auto) 83.7 % Lymph % (Auto) 7.6 % Long % (Auto) 6.8 % Eos % (Auto) 1.2 % Baso % (Auto) 0.3 % Neut # (Auto) 6.27 (1.40-6.50) K/uL Lymph # (Auto) 0.57 L (1.20-3.40) K/uL Long # (Auto) 0.51 (0.11-0.59) K/uL Eos # (Auto) 0.09 (0.00-0.50) K/uL Baso # (Auto) 0.02 (0.00-0.20) K/uL Immature Gran # (Auto) 0.03 (0.01-0.20) K/uL PT 10.9 (9.0-12.0) Seconds INR 1.0 (0.9-1.1) APTT 30 (21-31) Seconds PTT Ratio 1.1 Sodium 134 L 134 L (136-145) mmol/L Potassium 6.0 H 5.8 H (3.5-5.1) mmol/L Chloride 88 L 87 L (98-107) mmol/L Carbon Dioxide 26 26 (21-32) mmol/L Anion Gap 20 H 21 H (3-11) BUN 98 H 98 H (6-23) mg/dl Creatinine 11.47 H* 11.22 H* (0.6-1.2) mg/dl Est Cr Clr Drug Dosing 7.3 7.5 ml/min Est GFR ( Amer) 4.3 4.5 ml/min Est GFR (Non-Af Amer) 3.7 3.8 ml/min BUN/Creatinine Ratio 8.5 L 8.7 L (10-20) Glucose 108 H 181 H (70-99(Fasting)) mg/dl Calcium 9.8 9.3 (8.6-10.3) mg/dl Total Bilirubin 0.5 (0.2-1.0) mg/dl AST 16 (13-39) U/L ALT 9 (7-52) U/L Alkaline Phosphatase 117 H (34-104) U/L Troponin I High Sens 210.3 H* Cancelled (0-14) pg/ml Total Protein 7.0 (6.0-8.3) gm/dl Albumin 3.9 (3.4-5.0) gm/dl Globulin 3.1 (2.5-4.0) gm/dl Albumin/Globulin Ratio 1.3 (0.9-2) Administered Medications Discontinued Medications Albuterol (Albuterol 0.5% Neb Soln 2.5 Mg/0.5 Ml Vial) 10 mg NEB NOW STA Stop: 04/29/24 00:16 Last Admin: 04/29/24 00:36 Dose: 10 mg Documented By: FORREST Dextrose (Dextrose 50% 50 Ml Syringe) 50 ml IV NOW STA Stop: 04/29/24 00:21 Last Admin: 04/29/24 00:37 Dose: 50 ml Documented By: FORREST Fentanyl Citrate (Fentanyl Citrate Pf 100 Mcg/2 Ml Vial) 25 mcg IV NOW STA Stop: 04/28/24 23:28 Last Admin: 04/28/24 23:47 Dose: 25 mcg Documented By: FORREST Insulin Human Regular 5 units/ (Syringe) 9.9 mls @ 3 mls/sec IV ONE STA Stop: 04/29/24 00:16 Last Admin: 04/29/24 00:25 Dose: Not Given Documented By: FORREST Insulin Human Regular (Novolin-R Insulin Per Unit Charge) 10 units IV NOW STA Stop: 04/29/24 00:21 Last Admin: 04/29/24 00:38 Dose: 10 units Documented By: FORREST Co-signed By: PETRA Sodium Bicarbonate (Sodium Bicarb 8.4% Inj 50 Meq/50 Ml Syr) 50 meq IV NOW STA Stop: 04/29/24 00:21 Last Admin: 04/29/24 00:37 Dose: 50 meq Documented By: FORREST Sodium Bicarbonate (Sodium Bicarb 8.4% Inj 50 Meq/50 Ml Syr) 50 meq IV NOW STA Stop: 04/29/24 00:21 Last Admin: 04/29/24 00:37 Dose: 50 meq Documented By: FORREST Sodium Zirconium Cyclosilicate (Sodium Zirconium Cyclosilicate 10 Gm Packet) 10 gm PO NOW STA Stop: 04/29/24 00:21 Last Admin: 04/29/24 01:39 Dose: 10 gm Documented By: FORREST Discharge Plan Visit Data Chief Complaint: Cardiac Assessment Stated Complaint: CHEST PAIN ED Provider: Karan Santiago Discharge Problem: Acute hyperkalemia, ESRD on dialysis, Chest pain Forms Stand Alone Forms: My [facility] Prescriptions Prescriptions: No Action albuterol sulfate 2.5 mg /3 mL (0.083 %) Solution For Nebulization 2.5 mg INHALATION Q4H PRN (Reason: Shortness Of Breath Or Wheezing) gabapentin 400 mg capsule 400 mg PO TID carbamazepine 200 mg tablet 200 mg PO AMPM lorazepam 0.5 mg tablet 0.5 mg PO Q8 MDD panic attacks/before dialysis PRN (Reason: Anxiety) omeprazole 20 mg capsule,delayed release(DR/EC) 20 mg PO DAILYBB hydroxyzine HCl 25 mg tablet 25 mg PO Q6H PRN (Reason: Anxiety) Renal-Rika 0.8 mg Tablet 1 tab PO DAILY Rx Instructions: PER PT "CAN'T FIND IN STORE, BEEN OUT FOR A WHILE". albuterol sulfate 90 mcg/actuation Hfa Aerosol Inhaler 2 puff INHALATION Q6H PRN (Reason: Shortness Of Breath Or Wheezing) Dulera 200-5 mcg/actuation Hfa Aerosol Inhaler 2 puff INHALATION BID cinacalcet 90 mg tablet 90 mg PO QDD benzonatate 100 mg capsule 200 mg PO TID PRN (Reason: Cough) medroxyprogesterone [Depo-Provera] 150 mg/mL Suspension 150 mg IM UD Rx Instructions: Every 3 months calcium acetate(phosphat bind) 667 mg Capsule 2,001 mg PO UD Rx Instructions: take three tabs ( 2001mg) with each meal and two tabs ( 1334mg ) with each snack. Proctofoam HC 1-1 % foam 1 applic FL QID PRN (Reason: itching) Qty: 10 3RF lidocaine 5 % ointment 1 applic topical QID PRN (Reason: pain) Qty: 30 3RF Rx Instructions: Apply to rectal area up to 4 times daily as needed. bupropion HCl 150 mg tablet extended release 24 hr 150 mg PO QAM mirtazapine 7.5 mg tablet 7.5 mg PO HS varenicline 1 mg tablet 1 mg PO BID Referrals Referrals: Adolph Aldridge MD [Primary Care Provider] - Discharge Problem: Chest pain Qualifiers: Chest pain type: unspecified Qualified Code(s): R07.9 - Chest pain, unspecified
[2024-04-28 23:20] LABS: Basophils # (auto) 0.02 K/uL (0.00-0.20); Basophils % (auto) 0.3 %; Eosinophils # (auto) 0.09 K/uL (0.00-0.50); Eosinophils % (auto) 1.2 %; Hematocrit (blood only) 28.5 % (37.0-47.0); Hemoglobin 9.4 g/dl (12.0-16.0); Immature Granulocytes # (auto) 0.03 K/uL (0.01-0.20); Immature Granulocytes % (auto) 0.4 %; Lymphocytes # (auto) 0.57 K/uL (1.20-3.40); Lymphocytes % (auto) 7.6 %; Mean Corpuscular Hemoglobin 32.6 pg (25.0-34.0); Mean Platelet Volume 9.6 fL (9.4-12.4); Monocytes # (auto) 0.51 K/uL (0.11-0.59); Monocytes % (auto) 6.8 %; Neutrophils # (auto) 6.27 K/uL (1.40-6.50); Neutrophils % (auto) 83.7 %; Platelet Count 125 K/uL (130-400); RDW Standard Deviation 57.8 fL (36.4-46.3); Red Blood Count 2.88 M/uL (4.20-5.40); White Blood Count 7.49 K/ul (4.8-10.8)
[2024-04-28] MEDS: fentaNYL citrate PF 100 MCG/2 ML VIAL IV STA (23:47)
[2024-04-29 00:11] LABS: Albumin Globulin Ratio 1.3 (0.9-2); Albumin Level 3.9 gm/dl (3.4-5.0); BUN Creatinine Ratio 8.5 (10-20); Bilirubin,Total 0.5 mg/dl (0.2-1.0); Calcium 9.8 mg/dl (8.6-10.3); Creatinine Clr Calc Pharmacy 7.3 ml/min; Est GFR (African American) 4.3 ml/min; Est GFR (Non-African American) 3.7 ml/min; Globulin 3.1 gm/dl (2.5-4.0); Troponin I High Sensitivity 210.3 pg/ml (0-14)
[2024-04-29 00:15] LABS: Partial Thromboplastin Ratio 1.1; Partial Thromboplastin Time 30 Seconds (21-31); Prothrombin Time 10.9 Seconds (9.0-12.0)
[2024-04-29] MEDS ORDERED: DEXTROSE 50% 50 ML SYRINGE IV STA (00:15)
[2024-04-29] MEDS ORDERED: INSULIN HUMAN REGULAR PER UNIT 10 UNITS in SYRINGE 9.9 ML IV STA (00:20)
[2024-04-29] MEDS: INSULIN HUMAN REGULAR PER UNIT 5 UNITS in SYRINGE 9.9 ML IV STA (00:25)
[2024-04-29] MEDS: ALBUTEROL 0.5% NEB SOLN 2.5 MG/0.5 ML VIAL NEB STA (00:36)
[2024-04-29] MEDS: DEXTROSE 50% 50 ML SYRINGE IV STA (00:37)
[2024-04-29] MEDS: SODIUM BICARB 8.4% INJ 50 MEQ/50 ML SYR IV STA ×2 (00:37)
[2024-04-29] MEDS: NovoLIN-R INSULIN PER UNIT CHARGE IV STA (00:38)
[2024-04-29] MEDS: SODIUM ZIRCONIUM CYCLOSILICATE 10 GM PACKET PO STA (01:39)
[2024-04-29 01:58] LABS: BUN Creatinine Ratio 8.7 (10-20); Calcium 9.3 mg/dl (8.6-10.3); Creatinine Clr Calc Pharmacy 7.5 ml/min; Est GFR (African American) 4.5 ml/min; Est GFR (Non-African American) 3.8 ml/min; Potassium 5.8 mmol/L (3.5-5.1)
[2024-04-29] MEDS ORDERED: ACETAMINOPHEN 325 MG TAB PO PRN (05:23)
[2024-04-29] MEDS ORDERED: ALBUTEROL HFA 8 GM INHALER INH PRN (05:23)
[2024-04-29] MEDS ORDERED: ALBUTEROL 0.083% NEBU SOLN 3 ML VIAL INH PRN (05:23)
[2024-04-29] MEDS ORDERED: POLYETHYLENE (MIRALAX) 17 GM PACK PO PRN (05:23)
[2024-04-29] MEDS ORDERED: NITROGLYCERIN SL 0.4 MG/TAB TAB SL PRN (05:23)
[2024-04-29] MEDS ORDERED: BENZONATATE 100 MG CAPSULE PO PRN (05:23)
[2024-04-29] MEDS ORDERED: CALCIUM ACETATE 667 MG CAP/TAB PO PRN (05:36)
[2024-04-29] MEDS: PANTOprazole 40 MG TAB PO SCH (06:16)
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
--- OUTSIDE RECORDS SUMMARY | 2024-04-29 06:27 | External Medical Summary | Summary of Care ---
Author Name Unknown Organization [facility] Address [address] [place] [address] Phone [phone] Care Team Providers Care Bakery Products Checker Name Role Phone Adolph Aldridge MD Primary Care Provider [phone] Encounter Details Date Type Department Care Team ([facility] st Contact Info) Description 04/22/2024 Population Health External Data Unspecified Department Allergies Active Allergy Reactions Criticality Noted Date Comments Amoxicillin Low 01/27/2021 Other reaction(s): VOMITING Cefaclor Rash Low 11/23/2011 Cephalosporins Rash Low 05/16/1999 documented as of this encounter (statuses as of 04/22/2024) Medications Medication Sig Dispensed Refills Start Date End Date Status Calcium Acetate (Phos Binder) 667 MG Oral Capsule (Phoslo) Take 3 Caps by mouth three times a day with meals. 270 Cap 3 11/03/2020 Active Renal Vitamin 0.8 MG Oral Tablet 1 Tab. 08/10/2020 Active Compressor NebulizerIndicatio ns:Mild intermittent asthma with exacerbation [...] 4 times a day E11.9 1 Kit 03/10/2021 Active Dulera 200-5 MCG/ACT Inhalation Aerosol (Mometasone Furo-Formoterol Fum) Inhale by mouth 2 Puffs in the morning AND 2 Puffs before bedtime. 39 g 3 09/21/2021 Active Ondansetron HCl 4 MG Oral TabletIndications: Nausea without vomiting Take by mouth 1 Tablet every 6 hours as needed for Nausea. 24 Tablet 03/14/2022 Active OneTouch Delica Plus [id number] ns:DM type 2 with diabetic peripheral neuropathy (HCC),Type 2 diabetes mellitus with hemoglobin A1c goal of less than 7.0% (HCC) use 1 LANCET to TEST BLOOD SUGAR four times a day. 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 16 g 2 05/23/2022 Active Additional Information Patient not taking.Informant: Patient, Reported on 02/06/2024 Omeprazole 20 MG Oral Capsule Delayed Release (PriLOSEC)Indicati ons:Gastroesophage al reflux disease, unspecified whether esophagitis present Take 1 Capsule by mouth in the morning. 1 hour before the first meal of the day. 90 Capsule 3 08/29/2022 Active Varenicline Tartrate 0.5 MG X 11 & 1 MG X 42 Oral Tablet Therapy Pack Take as directed on box 1 Each 3 11/22/2022 Active Additional Information Patient not taking.Informant: Patient, Reported on 02/06/2024 Carvedilol 12.5 MG Oral Tablet (Coreg) Take 0.5 Tablets by mouth in the morning and 0.5 Tablets before bedtime. Active LORazepam 0.5 MG Oral Tablet (Ativan)Indication s:Panic attack TAKE 1 TABLET BY MOUTH EVERY 8 HOURS NEEDED FOR PANIC ATTACKS AND BEFORE DIALYSIS Strength: 0.5 mg 20 Tablet 01/23/2023 Active carBAMazepine ER 200 MG Oral Tablet Extended Release 12 Hour (Tegretol-Xr) Take 1 Tablet by mouth 2 times a day in the morning and at bedtime. Active PEG 1541-REf-EjYhq-NaC l-NaSulf 236 GM Oral Solution Reconstituted Please take according to Colonoscopy prep instructions. 4000 mL 03/19/2023 Active Additional Information Patient not taking.Informant: Patient, Reported on 02/19/2024 Cinacalcet HCl 90 MG Oral Tablet (Sensipar) Take 1 tablet by mouth daily with dinner 30 Tablet 11 08/16/2023 Active traMADol HCl 50 MG Oral Tablet (Ultram) Take 1 Tablet by mouth 2 times a day as needed for Pain, Severe for up to 10 doses. 10 Tablet 09/01/2023 Active Additional Information Patient not taking.Informant: Patient, Reported on 02/06/2024 Gabapentin 400 MG Oral Capsule (Neurontin)Indicat ions:DM type 2 with diabetic peripheral neuropathy (HCC) Take 1 Capsule by mouth in the morning and 1 Capsule at noon and 1 Capsule before bedtime. 270 Capsule 3 09/12/2023 Active Mirtazapine 7.5 MG Oral Tablet (Remeron) Take 1 Tablet by mouth at bedtime. Active Benzonatate 100 MG Oral CapsuleIndications :Chronic cough Take 2 Capsules by mouth 3 times a day as needed for Cough. 30 Capsule 1 12/19/2023 Active Albuterol Sulfate HFA 108 (90 Base) MCG/ACT Inhalation Aerosol SolutionIndication s:Chronic cough,Upper respiratory tract infection, unspecified type Inhale 2 Puffs by mouth every 4 hours as needed for Wheezing. 18 g 6 12/24/2023 Active buPROPion HCl ER (XL) 150 MG Oral Tablet Extended Release 24 Hour (Wellbutrin XL)Indications:Dep ression with anxiety Take 1 Tablet by mouth in the morning. Increase to 1 tab twice daily after 2 weeks. 60 Tablet 5 12/25/2023 Active Additional Information Patient taking differently:150 mg Oral Daily(AM),Pt only taking 1 per day., Informant: Patient, Reported on 02/06/2024 Dexcom G7 SensorIndications: Type 2 diabetes mellitus with hemoglobin A1c goal of less than 7.0% ([facility]) Use to check sugars continuously. E 11.9 change every 10 days 3 Each 11 01/06/2024 Active hydrOXYzine HCl 25 MG Oral Tablet TAKE 1 TABLET BY MOUTH EVERY 6 HOURS NEEDED FOR ANXIETY 02/12/2024 Active Dexcom G7 Director Of Graduate Admissions Device USE DAILY TO CHECK BLOOD SUGARS CONTINUOUSLY (DX CODE E11.9) 01/11/2024 Active Varenicline Tartrate 1 MG Oral TabletIndications: Tobacco use Take 1 Tablet by mouth in the morning and 1 Tablet before bedtime. As directed on box.. 60 Tablet 3 02/20/2024 Active Varenicline Tartrate (Starter) 0.5 MG X 11 & 1 MG X 42 Tablet Therapy PackIndications:To bacco use Follow directions to get started on Chantix 53 Each 02/20/2024 Active medroxyPROGESTERon e Acetate 150 MG/ML Intramuscular Suspension Prefilled Syringe (Depo-Provera) INJECT 150 MG INTRAMUSCULARLY (INTO A LARGE MUSCLE) ONCE EVERY 3 MONTHS 1 mL 03/26/2024 Active documented as of this encounter (statuses as of 04/22/2024) Active Problems Problem Noted Date Diagnosed Date Food insecurity 03/02/2024 Overview: Per [facility] Protocol Closed nondisplaced fracture of pelvis with rout [...] 01/25/2017 HTN, goal below 140/90 2016 ESRD (end stage renal disease) on dialysis 06/19 Depression with anxiety 05/13/2016 Chronic renal allograft [...] as of this encounter (statuses as of 04/22/2024) Resolved Problems Problem Noted Date Diagnosed Date [...] and PP sugars <120. Report levels to [facility] department weekly. 10. Advised patient that Glyburide, Metformin, and insulin may be safely used during for the control of blood sugar levels. Alexandra will begin her insulin therapy today. 11. Dietary consult to be done to instruct patient on appropriate nutrition and diet to aid in control of blood sugars. 12. Recommend urine culture each trimester. 13. Recommend [facility] ultrasound for limited anatomy at 12-14 weeks, for full anatomy at 18-20 weeks, and for echocardiography at 22-24 weeks. 14. Start testing with twice weekly NST and weekly MATTHEW beginning at 32 weeks or earlier if any evidence of uncontrolled blood sugars, renal abnormalities, or HTN. 15. Recommend [facility] growth ultrasound every 4 weeks after [...] CURRIE, contaminated patient to repepat OB [facility] 03/19/2011 01/29/20 17 Overview: 03/19/2011 Needs enrolled in [facility] once MA active. Marva RN- Enrolled 03/27/2011 [...] as of this encounter (statuses as of 04/22/2024) Immunizations Name Administration Dates Next Due COVID-19 mRNA, LNP-s, No Pre serve, 2-Dose Series (Moderna) 12/14/2020,11/16/2020 H1N1 2009 Influenza, Intranasal 08/11/2009 MMR - Measles/Mumps/Rubella Vaccine 10/11/2011 Pneumococcal Conjugate Vacc, 13 Valent (Prevnar) 03/10/2020 Pneumococcal Polysaccharide PPV23 (Pneumovax) 03/26/2017,12/05/2006 Seasonal Influenza, PF, 6 M & above, IM , (FluLaval or Fluzone) 05/26/2023,05/26/2020,06/11/2019,05/02 Seasonal Influenza, Split, I IV3, With Preserve, Inj 05/06/2017,05/05/2016,06/25/2013,08/05,07/02/2011,05/05/2009 TDAP, Age 7 and older, IM (Adacel) 10/09/2011 documented as of this encounter Social History Tobacco Use Types Packs/Day Years Used Date Smoking Tobacco: Every Day Cigarettes 0.5 11 Started: 12/2010; Last attempted to quit: 12/2021 Smokeless Tobacco: Never Comments:02/19/2024 smokes 1 pack per day, declined pamphlet Alcohol Use Standard Drinks/Week Comments No 0 (1 standard drink = 0.6 oz pur e alcohol) PHQ-2 Answer Date Recorded PHQ Adult Total Score 0 02/18/2024 Hunger Vital Sign Answer Date Recorded Within the past 12 months, y ou worried that your food would run out before you got the money to buy more. Sometimes true Within the past 12 months, t he food you bought just didn't last and you didn't have money to get more. Sometimes true Childcare Answer Date Recorded Do you feel overwhelmed with taking care of a child, family member or friend? No 01/23/2024 Does your family need help f inding childcare? (Household - for ages 0-17 years) Not on file 01/23/2024 Clothing Answer Date Recorded Have you been unable to get clothing when it was really needed? No 01/23/2024 Is your family able to get c lothes or diapers when needed? (Household - for ages 0-17 years) Not on file 01/23/2024 Personal Safety Answer Date Recorded Do you feel unsafe or have concerns for your saf ety? No 01/23/2024 Do you have concerns for you r family's safety? (Household - for ages 0-17 years) Not on file 01/23/2024 Utilities Answer Date Recorded Do you have trouble paying y our heating, water, or electric bill? No 01/23/2024 Is your family able to pay t he heat, water, or electric bill? (Household - for ages 0-17 years) Not on file 01/23/2024 Does your family have access to good internet? (Household - for ages 0-17 years) Not on file 01/23/2024 Employment Status Answer Date Recorded Are you unemployed or without regular income? No 01/23/2024 Does the household have a re gular source of income? (Household - for ages 0-17 years) Not on file 01/23/2024 Social Connections Answer Date Recorded How often do you feel lonely or isolated from those around you? Sometimes 01/23/2024 Financial Resource Strain Answer Date R ecorded Do you have any trouble payi ng for your medications, or do you think you might in the future? No 01/23/2024 Does your family have troubl e paying for medicine? (Household - for ages 0-17 years) Not on file 01/23/2024 Transportation Needs Answer Date Record ed READ ONLY Do you have troubl e getting a ride to medical visits or work? Never True 01/23/2024 Does your family have a hard time getting a ride to doctors visits? (Household - for ages 0-17 years) Not on file 01/23/2024 Has lack of transportation k ept you from medical appointments, meetings, work, or from getting things needed for daily living? Check all that apply. (Adult - for ages 18 years and over) Not on file 01/23/2024 Do you (or your family) have trouble finding or paying for a ride (transportation)? (Household - for ages 0-17 years) Not on file 01/23/2024 Housing Stability Answer Date Recorded Do you currently live in a s helter or have no steady place to sleep at night? No 01/23/2024 READ ONLY Do you think you a re at risk of becoming homeless? No 01/23/2024 Does your family worry about paying for your home or becoming homeless? (Household - for ages 0-17 years) Not on file 0 01/23/2024 Are you homeless or worried that you might be in the future? (Adult - for ages 18 years and over) Not on file Are you (or your family) chiquita eless or worried that you might be in the future? (Household - for ages 0-17 years) Not on file Food Insecurity Answer Date Recorded Do you need food for this week? No 01/23/2024 Are you able to get enough f ood for your family? (Household - for ages 0-17 years) Not on file 01/23/2024 Does your family need food t his week? (Household - for ages 0-17 years) Not on file 01/23/2024 Do you always have enough fo od for your family? (Household - for ages 0-17 years) Not on file 01/23/2024 Sex and Gender Information Value Date Recorded [...] No 08/30/2023 documented as of this encounter Plan of Treatment Upcoming Encounters Date Type Department Care Team (Late st Contact Info) Description 04/28/2024 11:20 AM EDT Office Visit [facility] [address] [place] [id number] Adolph Aldridge MD [address] [place] [address] 05/12/2024 1:00 PM EDT Office Visit Orthopaedics [facility] [address] [place] [address] Ary Rowe MD [address] [place] [address] Scheduled Procedures Name Priority Associated Diagnoses Date/Ti me COLONOSCOPY FLEXIBLE PROXIMA L DIAGNOSTIC Recall Iron deficiency anemia, unspecified iron deficiency anemia type Rectal bleeding Health Maintenance Due Date Last Done Comments DISCUSS TOBACCO CESSATION (REFER TO SMARTSET #0601) 1985 HPV/Co-Test 11/14/2015 COVID-19 Vaccine (3 - Moderna risk series) 01/11/2021 12/14/2020, 11/16/2020 Diabetic Eye Exam 06/21/2021 06/21/2020, , 01/25/2014, Additional history exists DTap/Tdap Vaccines (7 - Td or Tdap) 10/09/2021 10/09/2011, 08/12/2002, 07/25/1987, Additional history exists Diabetic Foot Exam 03/10/2022 03/10/2021, 0 03/10/2020, 11/08/2017, Additional history exists Cervical Cancer Screening 05/12/2023 Pap Smear 05/12/2023 05/12/2020, 04/2018, 09/25/2013, Additional history exists HbA1c 02/28/2024 08/30/2023, 10/2022, 07/26/2022, Additional history exists Influenza Vaccine (FLU shot) (#1) 2024 05/26/2023, 05/26/2020, 05/26/2020, Additional history exists Depression Monitoring 02/17/2025 02/18/2024 Colonoscopy 2030 03/29/2023, 01/2018, 10/01/2017 Pneumococcal Vaccine: Pediatrics (0 to 5 Years) and At-Risk Patients (6 to 64 Years) (4 of 4 - PPSV23 or PCV20) 2050 03/10/2020, 03/26/2017, 12/05/2006 Hepatitis B Vaccine Completed 05/21/1998, 12/18/1997, 11/17/1997 RETIRED - COLONOSCOPY-EVERY 5 YRS AGES 18-100 Discontinued 03/29/2023, 10/01/2017, 10/01/2017 HPV (Gardasil) Vaccine Aged Out No lo nger eligible based on patient's age to complete this topic MENINGOCOCCAL (MENACTRA/MENVEO) Aged Out No longer eligible based on patient's age to complete this topic documented as of this encounter Medical Devices Implanted Type Area Pesticide Control Inspector Device Identifier Shelf Expiration Date Model / Serial / Lot Stent Protege Gps [id number] - [id number] Implanted:Qty : 1 on 09/29/2020 by Carmelo Ramos MD at [place] [facility] [place] Left: Chest [employer] : VASCULAR [id number] 09/20/2022 [id number] / / [id number] Stent Viab [id number] - [id number] Implanted:Qty : 1 on 04/16/2023 by Carmelo Ramos MD at OR [facility] – [place] Right: Subclavian [employer] [id number] 01/26/2026 [id number] / [id number] / [id number] documented as of this encounter Advance Directives * Full Code (Latest Code Status on File) Date Activated Date Inactivated Comments 08/30/2023 3:26 AM 09/01/2023 10:35 PM This order re flects the patients wishes and were consensually agreed upon. Question Answer Comments Discussion of Advance Directives occurred with: Patient * Full Code Date Activated Date Inactivated Comments 11/01/2020 2:46 PM 11/03/2020 5:37 PM This order re flects the patients wishes and were consensually agreed upon. Question Answer Comments Discussion of Advance Directives occurred with: Patient Does the patient have a Living Will? No Does the patient have Health Care Power of Attor mamadou? No * Full Code Date Activated Date Inactivated Comments 09/29/2020 10:35 AM 10/01/2020 6:30 PM This order re flects the patients wishes and were consensually agreed upon. Question Answer Comments Discussion of Advance Directives occurred with: Patient * Full Code Date Activated Date Inactivated Comments 08/01/2019 2:13 AM 08/02/2019 2:55 PM This order r eflects the patients wishes and were consensually agreed upon. Question Answer Comments Discussion of Advance Directives occurred with: Patient * Full Code Date Activated Date Inactivated Comments 01/25/2017 3:46 PM 01/26/2017 10:40 PM This order re flects the patients wishes and were consensually agreed upon. Question Answer Comments Discussion of Advance Directives occurred with: Patient Does the patient have a Living Will? No Does the patient have Health Care Power of Attor mamadou? No Care Teams Bakery Products Checker Relationship Specialty Start Date End Date Adolph Aldridge MD [address] [facility] [address] PCP - General Family Medicine 10/21/18 documented as of this encounter
--- OUTSIDE RECORDS SUMMARY | 2024-04-29 06:27 | External Medical Summary | Summary of Care ---
Author Name Unknown Organization [facility] Address [address] [place] [address] Phone [phone] Care Team Providers Care Fish Packer Name Role Phone Adolph Aldridge MD Primary Care Provider [phone] Encounter Details Date Type Department Care Team (Late st Contact Info) Description 04/22/[address] [facility] [address] [facility] [place] [address] Charlie Hester CRNP [address] [facility] [place] [place] [address] Allergies Active Allergy Reactions Criticality Noted Date [...] 24 Tablet 03/14/2022 Active OneTouch Delica Plus [id number] ns:DM type 2 with diabetic peripheral neuropathy [...] the morning and at bedtime. Active PEG 8956-VYf-VfNjz-NaC l-NaSulf 236 GM Oral Solution Reconstituted Please [...] goal of less than 7.0% ([facility]) Use to check sugars continuously. E 11.9 change every 10 days 3 Each 11 01/06/2024 Active hydrOXYzine HCl 25 MG Oral Tablet TAKE 1 TABLET BY MOUTH EVERY 6 HOURS NEEDED FOR ANXIETY 02/12/2024 Active Dexcom G7 Natural Gas Engineer Device USE DAILY TO CHECK BLOOD SUGARS [...] and PP sugars <120. Report levels to [facility] department weekly. 10. Advised patient that Glyburide, Metformin, and insulin may be safely used during for the control of blood sugar levels. Alexandra will begin her insulin therapy today. 11. Dietary consult to be done to instruct patient on appropriate nutrition and diet to aid in control of blood sugars. 12. Recommend urine culture each trimester. 13. Recommend [facility] ultrasound for limited anatomy at 12-14 weeks, for full anatomy at 18-20 weeks, and for echocardiography at 22-24 weeks. 14. Start testing with twice weekly NST and weekly MATTHEW beginning at 32 weeks or earlier if any evidence of uncontrolled blood sugars, renal abnormalities, or HTN. 15. Recommend [facility] growth ultrasound every 4 weeks after [...] if early screen is normal. 5. Recommend [facility] ultrasound for anatomy screen at 20 weeks [...] Marva CURRIE, contaminated patient to repepat OB [facility] 03/19/2011 01/29/20 17 Overview: 03/19/2011 Needs enrolled in [facility] once MA active. Marva RN- Enrolled 03/27/2011 [...] Repeat at term. 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 Dizziness, chest pain, and shoulder blade S/w pt on 04/19/24 9:42am, recommend to go to ER. documented in this encounter Plan of Treatment Upcoming Encounters Date Type Department Care Team (Late st Contact Info) Description 04/28/2024 11:20 AM EDT Office Visit [facility] [address] [place] [address] Adolph Aldridge MD [address] [place] [address] 05/12/2024 1:00 PM EDT Office Visit [facility] [address] [place] [id number] Ary Rowe MD [address] [place] [address] Scheduled Procedures Name Priority Associated Diagnoses Date/Ti me COLONOSCOPY FLEXIBLE PROXIMA L DIAGNOSTIC Recall Iron deficiency anemia, unspecified iron deficiency anemia type Rectal bleeding Health Maintenance Due Date Last Done Comments DISCUSS TOBACCO CESSATION (REFER TO SMARTSET #4561) 1985 HPV/Co-Test 11/14/2015 COVID-19 Vaccine (3 - Moderna risk series) 01/11/2021 12/14/2020, 11/16/2020 Diabetic Eye Exam 06/21/2021 06/21/2020, , 01/25/2014, Additional history exists DTap/Tdap Vaccines (7 - Td or Tdap) 10/09/2021 10/09/2011, 08/12/2002, 07/25/1987, Additional history exists Diabetic Foot Exam 03/10/2022 03/10/2021, 0 03/10/2020, 11/08/2017, Additional history exists Cervical Cancer Screening 05/12/2023 Pap Smear 05/12/2023 05/12/2020, 010 04/2018, 09/25/2013, Additional history exists HbA1c 02/28/2024 08/30/2023, 100 10/2022, 07/26/2022, Additional history exists Influenza Vaccine (FLU shot) (#1) 2024 05/26/2023, 05/26/2020, 05/26/2020, Additional history exists Depression Monitoring 02/17/2025 02/18/2024 Colonoscopy 2030 03/29/2023, 0201/2018, 10/01/2017 Pneumococcal Vaccine: Pediatrics (0 to 5 [...] this encounter Medical Devices Implanted Type Area Elevator Constructor Device Identifier Shelf Expiration Date Model / Serial / Lot Stent Protege Gps [id number] - [id number] Implanted:Qty : 1 on 09/29/2020 by Carmelo Ramos MD at OR [facility] [place] Left: Chest [employer] : VASCULAR [id number] 09/20/2022 [id number] / / [id number] Stent Viab [id number] - [id number] Implanted:Qty : 1 on 04/16/2023 by Carmelo Ramos MD at OR [facility] [place] Right: Subclavian [employer] [id number] 01/26/2026 [id number] / [id number] / [id number] documented as of this encounter Advance Directives [...] Power of Attor mamadou? No Care Teams Fish Packer Relationship Specialty Start Date End Date Adolph Aldridge MD [address] [place] [address] PCP - General Family Medicine 10/21/18 documented as of this encounter
--- OUTSIDE RECORDS SUMMARY | 2024-04-29 06:56 | External Medical Summary | Summary of Care ---
Author Name Unknown Organization [facility] Address [address] [place] [address] Phone [phone] Care Team Providers Care Battery Wrecker Operator Name Role Phone Adolph Aldridge MD Primary Care Provider [phone] Reason for Referral * Precert (Within 10 days (routine)) - Pending Review Specialty Diagnoses / Procedures Referred By Contac t Referred To Contact Radiology Diagnoses Chest pain Type 2 diabetes mellitus with hemoglobin A1c goal of less than 7.0% (HCC) ESRD (end stage renal disease) on dialysis ([facility]) HTN, goal below 140/90 Procedures NM MYOCARD PERF IMG SPECT MULT STUDIES WITH PHARM INTERV Farooq Ross DO [address] [place] [address] Referral ID Status Reason Start Date Expiration Date Visits Requested Visits Authorized [id number] Pending Review Precert 05/28/[id number] Encounter Details Date Type Department Care Team (Late st Contact Info) Description 04/28/2024 Orders Only Cardiology[facility] [address] [place] [address] Farooq Ross, [address] [place] [address] Chest pain*; Type 2 diabetes mellitus with hemoglobin A1c goal of less than 7.0% (HCC); ESRD (end stage renal disease) on dialysis ([facility]); HTN, goal below 140/90 Allergies Active Allergy Reactions Criticality Noted Date Comments Amoxicillin Low 01/27/2021 Other reaction(s): VOMITING Cefaclor Rash Low 11/23/2011 Cephalosporins Rash Low 05/16/1999 documented as of this encounter (statuses as of 04/28/2024) Medications Medication Sig Dispensed Refills Start Date [...] for Wheezing. 150 mL 3 03/10/2021 Active MimosaTouch Verio w/Device KitIndications:DM type 1 with diabetic [...] 24 Tablet 03/14/2022 Active OneTouch Delica Plus [id number] ns:DM type 2 with diabetic peripheral neuropathy (HCC),Type 2 diabetes mellitus with hemoglobin A1c goal of less than 7.0% ([facility]) use 1 LANCET to TEST BLOOD [...] the morning and at bedtime. Active PEG 4766-TDf-ReLnz-NaC l-NaSulf 236 GM Oral Solution Reconstituted Please [...] Patient not taking.Informant: Patient, Reported on 02/06/2024 Mirtazapine 7.5 MG Oral Tablet (Remeron) Take [...] A1c goal of less than 7.0% (HCC) Use to check sugars continuously. E 11.9 change every 10 days 3 Each 11 01/06/2024 Active hydrOXYzine HCl 25 MG Oral Tablet TAKE 1 TABLET BY MOUTH EVERY 6 HOURS NEEDED FOR ANXIETY 02/12/2024 Active Dexcom G7 Research Nurse Device USE DAILY TO CHECK BLOOD SUGARS [...] EVERY 3 MONTHS 1 mL 03/26/2024 Active Lidocaine 5 % External Ointment 04/14/2024 Active Proctofoam HC 1-1 % External Foam 04/12/2024 Active Gabapentin 400 MG Oral Capsule (Neurontin)Indicat ions:DM type 2 with diabetic peripheral neuropathy (HCC) Take 1 Capsule by mouth in the morning and 1 Capsule at noon and 1 Capsule before bedtime. 270 Capsule 3 04/28/2024 Active documented as of this encounter (statuses as of 04/28/2024) Active Problems Problem Noted Date Diagnosed Date [...] as of this encounter (statuses as of 04/28/2024) Resolved Problems Problem Noted Date Diagnosed Date [...] and PP sugars <120. Report levels to [facility] department weekly. 10. Advised patient that Glyburide, Metformin, and insulin may be safely used during for the control of blood sugar levels. Alexandra will begin her insulin therapy today. 11. Dietary consult to be done to instruct patient on appropriate nutrition and diet to aid in control of blood sugars. 12. Recommend urine culture each trimester. 13. Recommend [facility] ultrasound for limited anatomy at 12-14 weeks, for full anatomy at 18-20 weeks, and for echocardiography at 22-24 weeks. 14. Start testing with twice weekly NST and weekly MATTHEW beginning at 32 weeks or earlier if any evidence of uncontrolled blood sugars, renal abnormalities, or HTN. 15. Recommend [facility] growth ultrasound every 4 weeks after [...] 01/29/20 17 Overview: 03/19/2011 Needs enrolled in [facility] once MA active. Marva RN- Enrolled [...] as of this encounter (statuses as of 04/28/2024) Immunizations Name Administration Dates Next Due COVID-19 mRNA, LNP-s, No Pre serve, 2-Dose Series (Moderna) 12/14/2020,11/16/2020 H1N1 2009 Influenza, Intranasal 08/11/2009 MMR - Measles/Mumps/Rubella Vaccine 10/11/2011 Pneumococcal Conjugate Vacc, 13 Valent (Prevnar) 03/10/2020 Pneumococcal Polysaccharide PPV23 (Pneumovax) 03/26/2017,12/05/2006 Seasonal Influenza, PF, 6 M & above, IM , (FluLaval or Fluzone) 05/26/2023,05/26/2020,06/11/2019,05/02 Seasonal Influenza, Trivalen t, (IIV3), with Preserv, (Fluzone) 05/06/2017,05/05/2016,06/25/2013,08/05,07/02/2011,05/05/2009 TDAP, Age 7 and older, IM (Adacel) 10/09/2011 documented as of this encounter Social History Tobacco Use Types Packs/Day Years Used Date Smoking Tobacco: Former Cigarettes 0.5 11 0 12/2010 - 12/2021 Smokeless Tobacco: Never Comments:02/19/2024 smokes 1 [...] No 08/30/2023 documented as of this encounter Progress Notes * Dana Israel TECH - 04/28/2024 2:52 PM EDT Images from the original note were not included. CAD Imaging Referral Note Alexandra Arguello is a 38 year old female who was referred by Dr. Adolph Aldridge for evaluation of chest pain. Reviewing Mold Burner: Dr. Farooq Ross Orders placed: Pharm Nuclear Stress test (Lexiscan with combined low intensity exercise) Test location: [facility] Referral priority: 1 month or less From Dr. Aldridge's Progress Note on 04/28/2024: HPI: 38-year-old seen today for post [facility] hospitalization from April 19 to April 21 2024. She presented with chest pain. She did not have shortness of breath. Her evaluation included blood work that showed elevated troponin but this was felt likely due to her underlying end-stage renal disease. She also had a markedly elevated D-dimer. She has chronic anemia with a hemoglobin 10. Venous Doppler studies of the leg showed no blood clots in the legs. CT scan of the chest with contrast showed some mediastinal lymphadenopathy of unknown etiology. There was some basilar fluid in the lungs. No blood clot noted. Echocardiogram showed was felt to be a normal ejection fraction without regionalwall motion abnormality. There was mild cardiomegaly. The exact etiology of her chest pain was unclear but thought possibly related to some pulmonary fluid. Additionally she has been trouble now for couple months with hemorrhoids. She has been using Proctofoam suppositories but has not found them to be helping. She now is using lidocaine gel 5% 4 times aday and that does give her some relief of discomfort. She is using MiraLax on a daily basis. Her stools are not hard. She has not seen surgery in this regard. She has a history of asthma although notes that she has not been using her inhaler because she has not been short of breath or having wheezing.. She is 42 days without smoking in his to be congratulated. She continues to do dialysis every Saturday and tells me that she has been keeping those appointments. New line she is living at her grandparents home. The summer in into liliam her grandparents Um stay at a local camp ground so for the most part she is at home she sees her 12-year-old son every weekend. She also has a 19-year-old son who separate whom he is living with between [place] in his father in a few other people. 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 She is on Provera. From the Hospital Discharge Summary on 04/21/2024 ([facility]): Patient Active Problem List Diagnosis Type 2 diabetes mellitus with hemoglobin A1c goal of less than 7.0% ([facility]) Need for prophylactic immunotherapy Anemia Transplant rejection Chronic renal allograft nephropathy Depression with anxiety ESRD (end stage renal disease) on dialysis ([facility]) HTN, goal below 140/90 Chest pain Migraine with aura and without status migrainosus, not intractable DM type 2 with diabetic peripheral neuropathy ([facility]) Mass of finger, right Bipolar disorder, in partial remission, most recent episode depressed ([facility]) DM kidney disease ([facility]) Malfunction of arteriovenous dialysis fistula ([facility]) Acute thrombosis of brachiocephalic (innominate) vein ([facility]) Syncope and collapse Restless legs syndrome Gastro-esophageal reflux disease without esophagitis Hypertensive chronic kidney disease with stage 5 chronic kidney disease or end stage renal disease (HCC) Type 2 diabetes mellitus with diabetic chronic kidney disease ([facility]) Major depressive disorder, recurrent, in partial remission ([facility]) Cyst of ovary Cardiomegaly Admission for dialysis ([facility]) Closed nondisplaced fracture of pelvis with routine healing Food insecurity Current Outpatient Medications Medication Sig Dispense Refill Calcium Acetate (Phos Binder) 667 MG Oral Capsule (Phoslo) Take 3 Caps by mouth three times a day with meals. 270 Cap 3 Renal Vitamin 0.8 MG Oral Tablet 1 Tab. Compressor Nebulizer Inhale via nebulizer. Use as directed.Dx J45.901 (asthma exacerbation) 1 Each 1 Albuterol Sulfate (2.5 MG/3ML) 0.083% Inhalation Nebulization Solution (Proventil) Inhale 1 Vial via nebulizer every 4 hours as needed for Wheezing. 150 mL 3 MimosaToThe History Press Verio w/Device Kit Use up to 4 times a day E11.9 1 Kit 0 Dulera 200-5 MCG/ACT Inhalation Aerosol (Mometasone Furo-Formoterol Fum) Inhale by mouth 2 Puffs inthe morning AND 2 Puffs before bedtime. 39 g 3 Ondansetron HCl 4 MG Oral Tablet Take by mouth 1 Tablet every 6 hours as needed for Nausea. 24 Tablet 0 MimosaTouch Delica Plus [id number] use 1 LANCET to TEST BLOOD SUGAR four times a day. DX E11.9 400 Each3 [employer] In Vitro Strip (Glucose Blood) Use up to 4 times a day E11.9 100 Strip 11 Fluticasone Propionate 50 MCG/ACT Nasal Suspension Administer into each nostril 2 Sprays in the morning. (Patient not taking: Reported on 02/06/2024) 16 g 2 Omeprazole 20 MG Oral Capsule Delayed Release (PriLOSEC) Take 1 Capsule by mouth in the morning. 1 hour before the first meal of the day. 90 Capsule 3 Varenicline Tartrate 0.5 MG X 11 & 1 MG X 42 Oral Tablet Therapy Pack Take as directed on box (Patient not taking: Reported on 02/06/2024) 1 Each 3 Carvedilol 12.5 MG Oral Tablet (Coreg) Take 0.5 Tablets by mouth in the morning and 0.5 Tablets before bedtime. (Patient not taking: Reported on 04/23/2024) LORazepam 0.5 MG Oral Tablet (Ativan) TAKE 1 TABLET BY MOUTH EVERY 8 HOURS NEEDED FOR PANIC ATTACKS AND BEFORE DIALYSIS Strength: 0.5 mg 20 Tablet 0 carBAMazepine ER 200 MG Oral Tablet Extended Release 12 Hour (Tegretol-Xr) Take 1 Tablet by mouth 2times a day in the morning and at bedtime. PEG 1926-ZAg-CfZxa-NaCl-NaSulf 236 GM Oral Solution Reconstituted Please take according to Colonoscopy prep instructions. (Patient not taking: Reported on 02/19/2024) 4000 mL 0 Cinacalcet HCl 90 MG Oral Tablet (Sensipar) Take 1 tablet by mouth daily with dinner 30 Tablet 11 traMADol HCl 50 MG Oral Tablet (Ultram) Take 1 Tablet by mouth 2 times a day as needed for Pain, Severe for up to 10 doses. (Patient not taking: Reported on 10/01/2023) 10 Tablet 0 Mirtazapine 7.5 MG Oral Tablet (Remeron) Take 1 Tablet by mouth at bedtime. Benzonatate 100 MG Oral Capsule Take 2 Capsules by mouth 3 times a day as needed for Cough. 30 Capsule 1 Albuterol Sulfate HFA 108 (90 Base) MCG/ACT Inhalation Aerosol Solution Inhale 2 Puffs by mouth every 4 hours as needed for Wheezing. 18 g 6 buPROPion HCl ER (XL) 150 MG Oral Tablet Extended Release 24 Hour (Wellbutrin XL) Take 1 Tablet by mouth in the morning. Increase to 1 tab twice daily after 2 weeks. (Patient taking differently: Take1 Tablet by mouth in the morning. Pt only taking 1 per day..) 60 Tablet 5 Dexcom G7 Sensor Use to check sugars continuously. E 11.9 change every 10 days 3 Each 11 hydrOXYzine HCl 25 MG Oral Tablet TAKE 1 TABLET BY MOUTH EVERY 6 HOURS NEEDED FOR ANXIETY Dexcom G7 Research Nurse Device USE DAILY TO CHECK BLOOD SUGARS CONTINUOUSLY (DX CODE E11.9) Varenicline Tartrate 1 MG Oral Tablet Take 1 Tablet by mouth in the morning and 1 Tablet before bedtime. As directed on box.. 60 Tablet 3 Varenicline Tartrate (Starter) 0.5 MG X 11 & 1 MG X 42 Tablet Therapy Pack Follow directions toget started on Chantix 53 Each 0 medroxyPROGESTERone Acetate 150 MG/ML Intramuscular Suspension Prefilled Syringe (Depo-Provera) INJECT 150 MG INTRAMUSCULARLY (INTO A LARGE MUSCLE) ONCE EVERY 3 MONTHS 1 mL 0 Lidocaine 5 % External Ointment Proctofoam HC 1-1 % External Foam Gabapentin 400 MG Oral Capsule (Neurontin) Take 1 Capsule by mouth in the morning and 1 Capsule at noon and 1 Capsule before bedtime. 270 Capsule 3 No current facility-administered medications for this visit. The ASCVD Risk score ([place] DK, et al., 2019) failed to calculate for the following reasons: The 2019 ASCVD risk score is only valid for ages 40 to 79 Cardiac Studies: Echo 04/20/2024 ([facility]) EKG 04/17/2024 ([facility]) Cardiac Cath 01/2017 Comments: The coronary arteries are angiographically normal.The left ventricular end diastolic pressure was normal.Access was not difficult to achieve .Very poor pain tolerance. Possible drug-seekingbehavior. During "10/10" chest pain on floor she was observed to be calmly working on a crossword puzzleLV was mildly dilated with mild diffuse global hypoinesis, probably from hypertensionHypertensive during procedure.Left ventricular systolic function is 50%. Left ventricular segmental wall motion shows diffuse hypokinesis. Dana Israel MS, [facility] Portable Power Tool Repairer, Cardiology Imaging Program documented in this encounter Plan of Treatment Upcoming Encounters Date Type Department Care Team (Late st Contact Info) Description 05/12/2024 1:00 PM EDT Office Visit Orthopaedics [address] [place] [address] Ary Rowe MD [address] [place] [address] 09/01/2024 1:40 PM EST Office Visit [facility] [address] [place] [id number] Adolph Aldridge MD [address] [place], [place] [id number] Scheduled Orders Name Type Priority Associated Diagnoses Orde r Schedule NM MYOCARD PERF IMG SPECT MULT STUDIES WITH PHARM INTERV Cardiology Routine Chest pain Type 2 diabetes mellitus with hemoglobin A1c goal of less than 7.0% (HCC) ESRD (end stage renal disease) on dialysis (HCC) HTN, goal below 140/90 Expected: 05/28/2024 (Approximate), Expires: 05/28/2025 Scheduled Procedures Name Priority Associated Diagnoses Date/Ti me COLONOSCOPY FLEXIBLE PROXIMA L DIAGNOSTIC Recall Iron deficiency anemia, unspecified iron deficiency anemia type Rectal bleeding Health Maintenance Due Date Last Done Comments HPV/Co-Test 11/14/2015 COVID-19 Vaccine (3 - Moderna risk series) 01/11/2021 12/14/2020, 11/16/2020 DTap/Tdap Vaccines (7 - Td or Tdap) 10/09/2021 10/09/2011, 08/12/2002, 07/25/1987, Additional history exists Cervical Cancer Screening 05/12/2023 Pap Smear 05/12/2023 05/12/2020, 04/2018, 09/25/2013, Additional history exists HbA1c 02/28/2024 08/30/2023, 10/2022, 07/26/2022, Additional history exists Influenza Vaccine (FLU shot) (#1) 2024 05/26/2023, 05/26/2020, 05/26/2020, Additional history exists Diabetic Eye Exam 05/28/2024 06/21/2020, , 01/25/2014, Additional history exists Postponed from 06/21/2021 (Patient Declined After Education) Diabetic Foot Exam 05/28/2024 03/10/2021, 0 03/10/2020, 11/08/2017, Additional history exists Postponed from 03/10/2022 (Patient Declined After Education) Depression Monitoring 02/17/2025 02/18/2024 Colonoscopy 2030 03/29/2023, [...] this encounter Medical Devices Implanted Type Area Soils Analyst Device Identifier Shelf Expiration Date Model / Serial / Lot Stent Protege Gps [id number] - [id number] Implanted:Qty : 1 on 09/29/2020 by Carmelo Ramos MD at OR [facility] [place] Left: Chest [employer] : VASCULAR [id number] 09/20/2022 [id number] / / [id number] Stent Viab [id number] - [id number] Implanted:Qty : 1 on 04/16/2023 by Carmelo Ramos MD at OR [facility] [place] Right: Subclavian [employer] [id number] 01/26/2026 [id number] / [id number] / [id number] documented as of this encounter Visit Diagnoses Diagnosis Chest pain- Primary Chest pain, unspecified Type 2 diabetes mellitus with hemoglobin A1c goal of less than 7.0% (HCC) ESRD (end stage renal disease) on dialysis (HCC) End stage renal disease HTN, goal below 140/90 Unspecified essential hypertension documented in this encounter Advance Directives * Full Code [...] Power of Attor mamadou? No Care Teams Battery Wrecker Operator Relationship Specialty Start Date End Date Adolph Aldridge MD [address] [place] [address] PCP - General Family Medicine 10/21/18 documented as of this encounter
--- NOTE | 2024-04-29 07:12 | XRay Report ---
SINGLE VIEW CHEST CLINICAL HISTORY: Atypical chest pain FINDINGS: An AP, portable, upright chest radiograph is compared to study dated 04/19/2024 and correlat ed with chest CT dated 04/20/2024. The heart is enlarged and there is pulmonary vascular congestion. T here is bibasilar atelectasis. No airspace consolidation or large pleural effusion is identified. No pneumothorax is seen. The bony thorax is grossly intact. Vascular stents project over the mediastinum and the right axilla. IMPRESSION: Cardiomegaly with evidence of congestive failure. ACT 112: Negative or not required by law. Electronically signed by: North Quintero M.D. 04/29/2024 7:10 AM
[2024-04-29] MEDS: HYDROmorphone INJ 0.5 MG/0.5 ML SYR IV PRN (07:35)
[2024-04-29] MEDS ORDERED: SODIUM CHLORIDE 0.9% 1,000 ML IV PRN (07:49)
[2024-04-29] MEDS ORDERED: GABAPENTIN 400 MG CAP PO SCH (09:00)
[2024-04-29] MEDS: LORazepam 0.5 MG TAB PO PRN (09:22)
[2024-04-29] MEDS: hydrOXYzine HCl 25 MG TAB PO PRN (09:22)
[2024-04-29 10:50] LABS: Basophils # (auto) 0.02 K/uL (0.00-0.20); Basophils % (auto) 0.2 %; Eosinophils # (auto) 0.03 K/uL (0.00-0.50); Eosinophils % (auto) 0.4 %; Hematocrit (blood only) 27.2 % (37.0-47.0); Hemoglobin 8.9 g/dl (12.0-16.0); Immature Granulocytes # (auto) 0.05 K/uL (0.01-0.20); Immature Granulocytes % (auto) 0.6 %; Lymphocytes # (auto) 0.32 K/uL (1.20-3.40); Mean Corpuscular Hgb Conc 32.7 g/dL (32.0-36.0); Mean Corpuscular Volume 97.8 fL (80.0-100.0); Mean Platelet Volume 10.5 fL (9.4-12.4); Monocytes # (auto) 0.59 K/uL (0.11-0.59); Monocytes % (auto) 7.3 %; Neutrophils # (auto) 7.05 K/uL (1.40-6.50); Neutrophils % (auto) 87.5 %; Platelet Count 112 K/uL (130-400); RDW Standard Deviation 57.1 fL (36.4-46.3); Red Blood Count 2.78 M/uL (4.20-5.40); White Blood Count 8.06 K/ul (4.8-10.8)
[2024-04-29 11:09] LABS: BUN Creatinine Ratio 8.9 (10-20); Calcium 9.6 mg/dl (8.6-10.3); Est GFR (African American) 4.2 ml/min; Est GFR (Non-African American) 3.6 ml/min; Magnesium 2.4 mg/dl (1.7-2.4); Potassium 5.8 mmol/L (3.5-5.1)
[2024-04-29 11:18] LABS: Troponin I High Sensitivity 172.1 pg/ml (0-14)
[2024-04-29] MEDS: EPOETIN ALFA 10,000 UNITS/ML VIAL IV ONE (11:23)
--- NOTE | 2024-04-29 11:31 | Nephrology Consultation ---
Date of Consultation April 29, 2024 Assessment & Plan (1) ESRD on dialysis: 38-year-old female with ESRD secondary to diabetes already has failed kidney transplant and she is currently very noncompliant with dialysis. Her potassium was high at 6 and then came down with medical management alone to 5.4. BUN and creatinine are high and she does have pulmonary congestion on x-ray. These are all expected findings given Anuric ESRD and intermittent compliance. Potassium should come down and we will be taking fluid off. However she shortness treatment quite often because of panic attacks. However at this time she is sleeping comfortably and we are trying not to wake her up unnecessarily. blood pressure is fine. AV fistula is working good. Currently no issues with dialysis. She does have anemia of CKD with a hemoglobin of 8.9 which [place] [id number]. we plan to take 5 kilo off and do on 2 k bath for 4hrs. (2) Chest pain: Atypical symptoms. However her risk for actual CAD is extremely high. Doing cardiac testing for ischemia may be reaosnable. (3) Acute hyperkalemia: was 6 on admission. She is anuric and she missed Dialysis on Saturday. Now down to 5.6 and getting dialysis. Should come down even more. Again reminded about not skipping dialysis History of Present Illness Reason for Consultation: ESRD on dialysis Attending Physician: Meryl Linares MD History of Present Illness History of Present Illness 38/F with longstanding severe DM type II, ESRD on HD MWF (history of failed renal transplant), HTN, bipolar disorder, history of DVT and PE no longer on anticoagulation, medical noncompliance and other medical problems listed below who presents with chest pain --same as last admission. Does have chronic left shoulder pain as well but states this pain is different. + Associated nausea and poor appetite but no SOB. Pain resolved with Zofran and fentanyl in ED and is currently comfortable. Missed HD on Saturday ( overslept) Was found to have a healing pelvic fracture last month and is seeing someone for this. No F/C, cough, congestion, SOB, V, abd pain, diarrhea or constipation. Does not make urine. History of smoking 1ppd since age 18 but quit smoking 35 days ago. getting Dialysis through [facility]. Troponin is less than last admit. Her potassium was 6. ER gave her sodium bicarb , insulin and dextrose and nebs and Lokelma and repeat potassium was 5.8. Patient has scheduled outpt dialysis today and ER tried to discharge home to get dialysis. Patient stated if she goes home she will miss the dialysis. So she was admitted. Currently still has chest pain but then she is comfortably sleeping. Denies headache. No dizziness. No blurred vision. No runny nose or sore throat. No cough. No shortness of breath. Appetite is okay. No nausea. No abdominal pain. Normal bowel movements. She has hemorrhoids and sometimes they bleed. Currently hemodynamics are okay. Review of systems----- positive for chest pain and anxiety. 12 systems reviewed and otherwise negative physical examination------ awake alert but currently sleeping mucous membranes moist neck is supple no JVD chest bilateral decreased breath sound Occ basal crackles CVS S1-S2 regular abdomen is soft nontender extremities trace edema Allergies Allergy/AdvReac Type Severity Reaction Status Date / Time cefaclor Allergy Intermediate Rash Verified 04/29/24 00:26 Cephalosporins Allergy Intermediate Rash Verified 04/29/24 00:26 amoxicillin AdvReac Intermediate VOMITING Verified 04/29/24 00:26 clavulanic acid AdvReac Intermediate VOMITING Verified 04/29/24 00:26 Home Medications Medication Instructions Recorded Confirmed Type albuterol sulfate 2.5 mg/3 mL 2.5 mg inhalation Q4H PRN 06/08/23 04/28/24 History (0.083 %) solution for nebulization Shortness Of Breath Or Wheezing albuterol sulfate 90 mcg/actuation 2 puff inhalation Q6H PRN 06/08/23 04/28/24 History aerosol inhaler Shortness Of Breath Or Wheezing carbamazepine 200 mg tablet 200 mg PO AMPM 06/08/23 04/29/24 History gabapentin 400 mg capsule 400 mg PO TID 06/08/23 04/29/24 History hydroxyzine HCl 25 mg tablet 25 mg PO Q6H PRN Anxiety 06/08/23 04/29/24 History lorazepam 0.5 mg tablet 0.5 mg PO Q8 PRN Anxiety 06/08/23 04/29/24 History mometasone-formoterol HFA 200 2 puff inhalation BID 06/08/23 04/29/24 History mcg-5 mcg/actuation aerosol inhaler (Dulera) omeprazole 20 mg capsule,delayed 20 mg PO DAILYBB 06/08/23 04/29/24 History release vitamin B complex-vitamin C-folic 1 tab PO DAILY 06/08/23 04/29/24 History acid 0.8 mg tablet (Renal-Rika) benzonatate 100 mg capsule 200 mg PO TID PRN Cough 08/29/23 04/29/24 History calcium acetate(phosphat bind) 667 2,001 mg PO UD 08/29/23 04/29/24 History mg capsule cinacalcet 90 mg tablet 90 mg PO QDD 08/29/23 04/29/24 History medroxyprogesterone 150 mg/mL 150 mg IM UD 08/29/23 04/29/24 History intramuscular suspension (Depo-Provera) hydrocortisone 1 %-pramoxine 1 % 1 applic NM QID PRN itching #10 04/11/24 04/29/24 Rx rectal foam (Proctofoam HC) grams lidocaine 5 % topical ointment 1 applic topical QID PRN pain #30 04/11/24 04/29/24 Rx grams bupropion HCl 150 mg 24 hr tablet, 150 mg PO QAM 04/17/24 04/29/24 History extended release mirtazapine 7.5 mg tablet 7.5 mg PO HS 04/17/24 04/29/24 History varenicline 1 mg tablet 1 mg PO BID 04/17/24 04/29/24 History Patient History Medical History Mood disorder Anxiety disorder, unspecified Abnormal chest xray Elevated lactic acid level Transaminitis Pneumonia Metabolic encephalopathy Acute non-ST elevation myocardial infarction (NSTEMI) Pulmonary edema Acute hyperkalemia Acute alteration in mental status Renal failure (ARF), acute on chronic Encephalopathy Rectal bleeding reason for up coming colonoscopy Facial fracture GI bleed ESRD (end stage renal disease) on dialysis Symptomatic anemia Tobacco abuse DVT prophylaxis Fistula right arm (currently being used) and left arm Dialysis patient SATURDAY/SAT/SATURDAY AT [facility] GERD (gastroesophageal reflux disease) Bipolar disorder Restless leg syndrome Peripheral neuropathy Asthma rare res inh use History of abnormal cervical Papanicolaou smear Elevated troponin Acute electrocardiogram changes Surgical History H/O eye surgery LASER SURGERY LEFT History of surgery left arm d/t clot in arm from AV fistula use @ [facility] History of surgery (~09/09/20) perm cath > since removed History of colonoscopy Kidney transplant recipient 2013 AT [facility] History of tooth extraction three TOOTH History of cardiac cath 2016 NO STENTS AVF (arteriovenous fistula) bilat upper arms ---currently using right for dialysis Family History Grandmother Hx of CABG Mother Diabetes Father Crohn's disease Grandfather (Maternal) Diabetes Uncle Diabetes Grandmother (Maternal) Family history of reaction to anesthesia difficulty waking with colonoscopy Social History Smoking Status: Former smoker Tobacco Type: Cigarettes Cigarettes Per Day: 20; Second Hand Exposure: No; Do You Dip or Chew Tobacco: No; Hx Alcohol Use: No Hx Substance Use: No Preferred Language: Frisian Communication Ability: Effective Curtain Hemmer Automatic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 Beliefs That Will Affect Care: None marital status: Single Current Living Situation: Family Current Living Situation Comment: boyfriend recently kicked patient out of house pt reports How many Children do You have: 3 Feels Safe at Home: Yes Assistive Devices: Crutches Results & Data Vital Signs (Past 12 Hours) Vital Signs Temp Pulse Pulse Pulse Resp BP BP 04/29/24 10:30 98 H 142/95 H 04/29/24 10:00 99 H 159/91 H 04/29/24 09:56 100 H 157/99 H 04/29/24 09:46 36.8 C 99 H 04/29/24 07:10 102 H 04/29/24 05:30 36.8 C 102 H 16 158/98 H 04/29/24 05:05 98 H 14 113/67 04/29/24 04:52 96 H 22 04/29/24 02:18 97 H 04/29/24 02:00 102 H 18 140/86 04/29/24 01:00 102 H 20 114/66 04/29/24 01:00 114/66 04/29/24 01:00 114/66 04/29/24 01:00 97 H 17 04/29/24 00:00 94 H 13 113/82 04/28/24 23:52 95 H 19 95/73 L BP Pulse Ox O2 Del Method 04/29/24 10:30 04/29/24 10:00 04/29/24 09:56 04/29/24 09:46 04/29/24 07:10 04/29/24 05:30 94 Room Air 04/29/24 05:05 95 Room Air 04/29/24 04:52 107/79 04/29/24 02:18 04/29/24 02:00 97 04/29/24 01:00 96 Room Air 04/29/24 01:00 04/29/24 01:00 04/29/24 01:00 100 04/29/24 00:00 97 Room Air 04/28/24 23:52 97 Room Air Laboratory Results CBC renal panel, CXR reviewed (2) Chest pain Chest pain type: unspecified Qualified Code(s): R07.9 - Chest pain, unspecified
--- NOTE | 2024-04-29 12:50 | Hospitalist Progress Note ---
Date of Service April 29, 2024 Assessment & Plan (1) Chest pain: Plan Pt is a 38-year-old female with past medical history significant for type 2 diabetes, end-stage renal disease on hemodialysis, history of acute thrombosis of brachiocephalic vein, hypertension, cardiomegaly, GERD, restless leg syndrome, history of chest pains, history of syncope and collapse, history of migraine, history of anemia, history of transplant rejection, history of depression with anxiety, bipolar disorder, who presents with chest pain. Patient was recently in the hospital from April 19 to April 21 with chest pain and her troponin was elevated at the time but thought to be from underlying renal disease, and also her D-dimer was elevated however venous Doppler and CTA chest were okay except showing some pulmonary edema and mediastinal lymphadenopathy of unknown etiology. Echo was unremarkable except moderate LVH and Grade 1 diastolic heart failure. Saw PCP yesterday after hospital discharge and plan for nuclear stress test. After coming home again she had left-sided chest pain radiating to the left arm and came to the ER. Troponin is less than last admit. Her potassium was 6. ER gave her sodium bicarb , insulin and dextrose and nebs and Lokelma and repeat potassium was 5.8. Patient has scheduled dialysis today and ER tried to discharge home to get dialysis. Patient stated if she goes home she will miss the dialysis. So admitted, hx of noncompliance with dialysis. Currently still has chest pain. Denies headache. No dizziness. No blurred vision. No runny nose or sore throat. No cough. No shortness of breath. Appetite is okay. No nausea. No abdominal pain. Normal bowel movements. She has hemorrhoids and sometimes they bleed. Currently hemodynamics are stable. Atypical Chest pain EKG no acute findings Troponin 210 but was 462 on April 20 Last admit echo stable There is a plan for nuclear stress test as outpatient follow serial enzymes N.p.o. for now Cardiology consulted, appreciate recs End-stage renal disease on hemodialysis Hyperkalemia Due for dialysis day of admission Potassium was 6 in the ER Received serum bicarbonate, Lokelma, neb and insulin and dextrose in the ER Repeat potassium was 5.8 Plan for dialysis Nephrology consulted, appreciate recs PRN and scheduled IV tylenol for associated dialysis pain, continue home gabapentin Bleeding hemorrhoids Anemia of chronic kidney disease Hemoglobin 9.4. Close to baseline There is a plan to referral to colorectal surgery by PCP Continue to monitor h/h Mediastinal lymphadenopathy Plan for repeat CAT scan Diabetes Hemoglobin 5.6 in November 2023 Sliding scale Asthma Continue home inhalers Depression Anxiety Bipolar disorder Continue home medications On bupropion, carbamazepine hydroxyzine as needed lorazepam as needed and mirtazapine Chronic thrombocytopenia Platelets 125 Will follow Diet: renal diet, npo currently DVT prophylaxis: SCDs for now Disposition: home once medically stable Admission and Anticipated Discharge Date Admission Date: April 29, 2024 Subjective Pt was seen while in dialysis. Was snoring, resting comfortably. Nursing and dialysis staff reporting pt states she has pain with dialysis. Upon awakening, pt notes pain chronic and she has pain in her arm and "all over". Review of Systems Review of Systems: All systems reviewed & are unremarkable except as noted in Subjective Physical Exam Physical Exam: General: Alert, oriented. No acute distress Psych: Appropriate mood and affect Neuro: No gross deficits while in bed HEENT: NC/AT CV: RRR Resp: Breath sounds clear bilaterally, no increased effort of breathing. Abdomen: Soft, nontender, nondistended Extremities: No edema in lower extremities bilaterally. Results & Data Results & Data Vital Signs (Past 12 Hours) Vital Signs Temp Pulse Pulse Pulse Resp BP BP 04/29/24 12:30 92 H 122/75 04/29/24 12:00 89 141/92 H 04/29/24 11:30 94 H 144/91 H 04/29/24 11:00 96 H 145/90 H 04/29/24 10:30 98 H 142/95 H 04/29/24 10:00 99 H 159/91 H 04/29/24 09:56 100 H 157/99 H 04/29/24 09:46 36.8 C 99 H 04/29/24 07:10 102 H 04/29/24 05:30 36.8 C 102 H 16 158/98 H 04/29/24 05:05 98 H 14 113/67 04/29/24 04:52 96 H 22 04/29/24 02:18 97 H 04/29/24 02:00 102 H 18 140/86 04/29/24 01:00 102 H 20 114/66 04/29/24 01:00 114/66 04/29/24 01:00 114/66 04/29/24 01:00 97 H 17 BP Pulse Ox O2 Del Method 04/29/24 12:30 04/29/24 12:00 04/29/24 11:30 04/29/24 11:00 04/29/24 10:30 04/29/24 10:00 04/29/24 09:56 04/29/24 09:46 04/29/24 07:10 04/29/24 05:30 94 Room Air 04/29/24 05:05 95 Room Air 04/29/24 04:52 107/79 04/29/24 02:18 04/29/24 02:00 97 04/29/24 01:00 96 Room Air 04/29/24 01:00 04/29/24 01:00 04/29/24 01:00 100 Diagnostic Findings Chest X-Ray 04/28/24 22:50 SINGLE VIEW CHEST CLINICAL HISTORY: Atypical chest pain FINDINGS: An AP, portable, upright chest radiograph is compared to study dated 04/19/2024 and correlated with chest CT dated 04/20/2024. The heart is enlarged and there is pulmonary vascular congestion. There is bibasilar atelectasis. No airspace consolidation or large pleural effusion is identified. No pneumothorax is seen. The bony thorax is grossly intact. Vascular stents project over the mediastinum and the right axilla. IMPRESSION: Cardiomegaly with evidence of congestive failure. ACT 112: Negative or not required by law. Electronically signed by: North Quintero M.D. 04/29/2024 7:10 AM (1) Chest pain Chest pain type: unspecified Qualified Code(s): R07.9 - Chest pain, unspecified
[2024-04-29] MEDS: CALCIUM ACETATE 667 MG CAP/TAB PO SCH (13:02)
[2024-04-29] MEDS: carBAMazepine 200 MG TABLET PO SCH (13:03)
[2024-04-29] MEDS: FLUTICASONE/VILANTEROL 200/25MCG 14 PUFFS/INHALER INH SCH (13:03)
[2024-04-29] MEDS: buPROPion XL 150 MG TABCR PO SCH (13:03)
[2024-04-29] MEDS: GABAPENTIN 300 MG CAP PO SCH (13:04)
[2024-04-29] MEDS: NEPHROCAPS PO SCH (13:04)
--- NOTE | 2024-04-29 13:42 | Electrocardiogram Report ---
Test Reason : Blood Pressure : */* mmHG Vent. Rate : 100 BPM Atrial Rate : 100 BPM P-R Int : 204 ms QRS Dur : 90 ms QT Int : 370 ms P-R-T Axes : 61 -45 1 degrees QTcB Int : 477 ms Normal sinus rhythm Left axis deviation Moderate voltage criteria for LVH, may be normal variant Anterolateral infarct (cited on or before 21-Mar-2018) Abnormal ECG When compared with ECG of 20-Apr-2024 08:09, No significant change was found Confirmed by Daljit Thompson [id number] on 04/29/2024 1:42:01 PM Referred By: REFERRED SELF Confirmed By: Daljit Thompson
--- NOTE | 2024-04-29 14:02 | Cardiology Consultation ---
Date of Consultation April 29, 2024 Assessment & Plan (1) Chest pain: (2) Elevated troponin: (3) ESRD on dialysis: Plan Assessment: 38 year old female with multiple comorbidities including ESRD on HD 3x per week presents for recurrent chest pain. Request by hospitalist for cardiac consultation for further recommendations. Plan: 1. Chest pain: -Atypical in nature. Patient reports that her pain improved following today's HD treatment. Patient denied missed dialysis treatments, but per review of ED records, she missed her scheduled treatment on Saturday which would explain her hypervolemia. Likely contributing to her chest pain -Recent echocardiogram last week shows normal LV function and no wall motion abnormalities. -Would recommend that patient continue with her HD treatment regimen. No further cardiac testing is warranted in the IP setting. -Orders were placed by PCP for a outpatient nuclear stress which is pending in the [employer] system, but will need scheduled. Encouraged patient to follow through with testing. 2. Elevated Troponin -Chronic elevation in the setting of ESRD. Recent echo demonstrates normal LV function and no wall motion abnormalities -Plan for outpatient nuclear stress test. Pretest probability for CAD remains low, but not impossible given her multiple comorbidities. 3. ESRD on dialysis -Continue on HD treatments as per current regimen. -Continued management per nephrology. Case has been discussed with Dr. Simons. Further recommendations regarding plan of care as per his assessment. I spent a total of 30 minutes on the date of service in preparation, delivery, documentation of the care provided to the patient excluding any time spent in the performance of separately billed services. ANGÉLICA Melendrez [facility] Cardiology [facility] Supervising Physician Co-Signing Physician Notes I have personally performed a history and physical examination on the patient. I have reviewed the advance practitioner's documentation, and I agree with, and take responsibility for the plan of care. 38-year-old female presents to the emergency department with chest discomfort. Last dialysis treatment Saturday04/24/2024. Admits to frequent noncompliance with dialysis treatments. Patient volume overloaded with hyperkalemia on admission. Notes discomfort radiating to her left arm. Discomfort significantly improved post dialysis with removal of 4 L. Denies orthopnea or PND. Chest pain likely related to volume overload, acute heart failure in the setting of noncompliance with dialysis treatments. Recommend dialysis treatments as per nephrology to optimize volume status. Discussed importance of compliance with patient at length. Will facilitate outpatient Lexiscan nuclear stress test as ordered. All questions answered to patient's satisfaction. Thank you for allowing me to participate in the care of your patient. I spent a total of 35 minutes on the date of service in preparation, delivery, and documentation of the care provided to this patient, excluding any time spent in the performance of separately billed services. Juan Simons DO, [facility] History of Present Illness Reason for Consultation: atypical chest pain Requesting Physician: Rigo miller Attending Physician: Meryl Linares MD History of Present Illness HPI: 38-year-old female with past medical history significant for type 2 diabetes, end-stage renal disease on hemodialysis, history of acute thrombosis of brachiocephalic vein, hypertension, cardiomegaly, GERD, restless leg syndrome, history of chest pains, history of syncope and collapse, history of migraine, history of anemia, history of transplant rejection, history of depression with anxiety, bipolar disorder, presents with chest pain. Of note, patient was recently hospitalized with complaints of chest pain from 04/19- 04/21/24. Her EKG did not show any acute changes, her echocardiogram demonstrates normal LVEF and no wall motion abnormalities. She did have some elevation in troponin at that time which was believed to be s/t her ESRD. patient was discharged and followed up with her PCP who discussed the case with Dr. Ross. While the threshold for suspected ACS is low, it was recommended given her comorbidities, to have patient undergo a nuclear stress test outpatient. this was ordered yesterday at time of PCP visit, has not been scheduled yet. she returned to the ED last evening with complaints of left sided chest pain with radiation down the left arm. EKG NSR with no acute ST-T wave changes. Troponin elevated at 172. please note there is chronic elevation with prior admissions showing HST ranging from 200-500. Chest xray: IMPRESSION: Cardiomegaly with evidence of congestive failure. Of note, during patient's prior hospitalization, her chest pain resolves once she had her HD therapy. Upon seeing patient today, when asked if she had diabetes, she stated no. review of nephrology records and prior hospitalization report that she has a long standing history of poorly controlled DM resulting in renal failure. Patient was also asked if she had missed any OP HD treatments which she denies. Upon further review of record, patient missed her HD treatment on Saturday. see ED report. She states that she is chest pain free at this time, but her pain has been relieved with both an HD treatment and with Fentanyl. REview of telemetry demonstrates SR with no acute events overnight. Allergies Allergy/AdvReac Type Severity Reaction Status Date / Time cefaclor Allergy Intermediate Rash Verified 04/29/24 00:26 Cephalosporins Allergy Intermediate Rash Verified 04/29/24 00:26 amoxicillin AdvReac Intermediate VOMITING Verified 04/29/24 00:26 clavulanic acid AdvReac Intermediate VOMITING Verified 04/29/24 00:26 Home Medications Medication Instructions Recorded Confirmed Type albuterol sulfate 2.5 mg/3 mL 2.5 mg inhalation Q4H PRN 06/08/23 04/28/24 History (0.083 %) solution for nebulization Shortness Of Breath Or Wheezing albuterol sulfate 90 mcg/actuation 2 puff inhalation Q6H PRN 06/08/23 04/28/24 History aerosol inhaler Shortness Of Breath Or Wheezing carbamazepine 200 mg tablet 200 mg PO AMPM 06/08/23 04/29/24 History gabapentin 400 mg capsule 400 mg PO TID 06/08/23 04/29/24 History hydroxyzine HCl 25 mg tablet 25 mg PO Q6H PRN Anxiety 06/08/23 04/29/24 History lorazepam 0.5 mg tablet 0.5 mg PO Q8 PRN Anxiety 06/08/23 04/29/24 History mometasone-formoterol HFA 200 2 puff inhalation BID 06/08/23 04/29/24 History mcg-5 mcg/actuation aerosol inhaler (Dulera) omeprazole 20 mg capsule,delayed 20 mg PO DAILYBB 06/08/23 04/29/24 History release vitamin B complex-vitamin C-folic 1 tab PO DAILY 06/08/23 04/29/24 History acid 0.8 mg tablet (Renal-Rika) benzonatate 100 mg capsule 200 mg PO TID PRN Cough 08/29/23 04/29/24 History calcium acetate(phosphat bind) 667 2,001 mg PO UD 08/29/23 04/29/24 History mg capsule cinacalcet 90 mg tablet 90 mg PO QDD 08/29/23 04/29/24 History medroxyprogesterone 150 mg/mL 150 mg IM UD 08/29/23 04/29/24 History intramuscular suspension (Depo-Provera) hydrocortisone 1 %-pramoxine 1 % 1 applic RI QID PRN itching #10 04/11/24 0 04/29/24 Rx rectal foam (Proctofoam HC) grams lidocaine 5 % topical ointment 1 applic topical QID PRN pain #30 04/11/24 04/29/24 Rx grams bupropion HCl 150 mg 24 hr tablet, 150 mg PO QAM 04/17/24 04/29/24 History extended release mirtazapine 7.5 mg tablet 7.5 mg PO HS 04/17/24 04/29/24 History varenicline 1 mg tablet 1 mg PO BID 04/17/24 04/29/24 History Patient History Medical History Mood disorder Anxiety disorder, unspecified Abnormal chest xray Elevated lactic acid level Transaminitis Pneumonia Metabolic encephalopathy Acute non-ST elevation myocardial infarction (NSTEMI) Pulmonary edema Acute hyperkalemia Acute alteration in mental status Renal failure (ARF), acute on chronic Encephalopathy Rectal bleeding reason for up coming colonoscopy Facial fracture GI bleed ESRD (end stage renal disease) on dialysis Symptomatic anemia Tobacco abuse DVT prophylaxis Fistula right arm (currently being used) and left arm Dialysis patient SATURDAY/SAT/SATURDAY AT [facility] GERD (gastroesophageal reflux disease) Bipolar disorder Restless leg syndrome Peripheral neuropathy Asthma rare res inh use History of abnormal cervical Papanicolaou smear Elevated troponin Acute electrocardiogram changes Surgical History H/O eye surgery LASER SURGERY LEFT History of surgery left arm d/t clot in arm from AV fistula use @ [facility] History of surgery (~09/09/20) perm cath > since removed History of colonoscopy Kidney transplant recipient 2013 AT [facility] History of tooth extraction three TOOTH History of cardiac cath 2016 NO STENTS AVF (arteriovenous fistula) bilat upper arms ---currently using right for dialysis Family History Grandmother Hx of CABG Mother Diabetes Father Crohn's disease Grandfather (Maternal) Diabetes Uncle Diabetes Grandmother (Maternal) Family history of reaction to anesthesia difficulty waking with colonoscopy Social History Smoking Status: Former smoker Tobacco Type: Cigarettes Cigarettes Per Day: 20; Second Hand Exposure: No; Do You Dip or Chew Tobacco: No; Hx Alcohol Use: No Hx Substance Use: No Preferred Language: Occitan Communication Ability: Effective Storage Administrator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 Beliefs That Will Affect Care: None marital status: Single Current Living Situation: Family Current Living Situation Comment: boyfriend recently kicked patient out of house pt reports How many Children do You have: 3 Feels Safe at Home: Yes Assistive Devices: Crutches Review of Systems Review of Systems: All systems reviewed & are unremarkable except as noted in HPI & below Results & Data Vital Signs (Past 12 Hours) Vital Signs Temp Pulse Pulse Pulse Resp BP BP 04/29/24 12:30 92 H 122/75 04/29/24 12:00 89 141/92 H 04/29/24 11:30 94 H 144/91 H 04/29/24 11:00 96 H 145/90 H 04/29/24 10:30 98 H 142/95 H 04/29/24 10:00 99 H 159/91 H 04/29/24 09:56 100 H 157/99 H 04/29/24 09:46 36.8 C 99 H 04/29/24 07:10 102 H 04/29/24 05:30 36.8 C 102 H 16 158/98 H 04/29/24 05:05 98 H 14 113/67 04/29/24 04:52 96 H 22 04/29/24 02:18 97 H 04/29/24 02:00 102 H 18 140/86 BP Pulse Ox O2 Del Method 04/29/24 12:30 04/29/24 12:00 04/29/24 11:30 04/29/24 11:00 04/29/24 10:30 04/29/24 10:00 04/29/24 09:56 04/29/24 09:46 04/29/24 07:10 04/29/24 05:30 94 Room Air 04/29/24 05:05 95 Room Air 04/29/24 04:52 107/79 04/29/24 02:18 04/29/24 02:00 97 Laboratory Results Cardiac Enzymes 04/28/24 04/29/24 04/29/24 Range/Units 23:04 01:22 10:28 AST 16 (13-39) U/L Troponin I High Sens 210.3 H* Cancelled 172.1 H* (0-14) pg/ml 04/29/24 Range/Units 15:18 AST (13-39) U/L Troponin I High Sens 177.0 H* (0-14) pg/ml Coagulation 04/28/24 Range/Units 23:05 PT 10.9 (9.0-12.0) Seconds APTT 30 (21-31) Seconds CBC 04/28/24 04/29/24 Range/Units 23:04 10:28 WBC 7.49 8.06 (4.8-10.8) K/ul RBC 2.88 L 2.78 L (4.20-5.40) M/uL Hgb 9.4 L 8.9 L (12.0-16.0) g/dl Hct 28.5 L 27.2 L (37.0-47.0) % Plt Count 125 L 112 L (130-400) K/uL Neut # (Auto) 6.27 7.05 H (1.40-6.50) K/uL Lymph # (Auto) 0.57 L 0.32 L (1.20-3.40) K/uL [place] # (Auto) 0.51 0.59 (0.11-0.59) K/uL Eos # (Auto) 0.09 0.03 (0.00-0.50) K/uL Baso # (Auto) 0.02 0.02 (0.00-0.20) K/uL Comprehensive Metabolic Panel 04/28/24 04/29/24 04/29/24 Range/Units 23:04 01:22 10:28 Sodium 134 L 134 L 134 L (136-145) mmol/L Potassium 6.0 H 5.8 H 5.8 H (3.5-5.1) mmol/L Chloride 88 L 87 L 87 L (98-107) mmol/L Carbon Dioxide 26 26 25 (21-32) mmol/L BUN 98 H 98 H 105 H (6-23) mg/dl Creatinine 11.47 H* 11.22 H* 11.84 H* D (0.6-1.2) mg/dl Glucose 108 H 181 H 111 H (70-99(Fasting)) mg/dl Calcium 9.8 9.3 9.6 (8.6-10.3) mg/dl AST 16 (13-39) U/L ALT 9 (7-52) U/L Alkaline Phosphatase 117 H (34-104) U/L Total Protein 7.0 (6.0-8.3) gm/dl Albumin 3.9 (3.4-5.0) gm/dl Intake and Output 04/29/24 04/29/24 04/29/24 06:59 14:59 22:59 Output Total 0 / 0 0 / 0 Balance 0 / 0 0 / 0 Output: Urine 0 / 0 0 / 0 Other: Hemodialysis Ultrafiltration 4,378 Amount Weight 82.1 kg Weight Measurement Method Built in [facility] (1) Chest pain Chest pain type: unspecified Qualified Code(s): R07.9 - Chest pain, unspecified
[2024-04-29] MEDS: ACETAMINOPHEN 1,000 MG/100 ML VIAL IV SCH (15:33)
[2024-04-29] MEDS: CINACALCET HCL 90 MG TAB PO SCH (17:14)
[2024-04-29] MEDS: LIDOCAINE 5% OINT 30 GM TUBE TOP PRN (17:25)
[2024-04-29] MEDS: HYDROCORTISONE 1% CRM 30 GM TUBE EXT PRN (17:55)
[2024-04-29] MEDS: MIRTAZAPINE TAB 15 MG TAB PO SCH (20:44)
--- NOTE | 2024-04-29 21:36 | Communication Note ---
Date of Service: April 29, 2024 RN clarifying patient varenicline Rx dose which patient brought from home. original label states that the dose is 1mg. Pharmacy recommends current prescribed varenicline dose of 0.5 daily due to ESRD. Discharge patient on above dose.
[2024-04-29] MEDS: VARENICLINE PO SCH (21:44)
[2024-04-30 03:14] VITALS: RESP 19
[2024-04-30 09:03] LABS: Hematocrit (blood only) 28.8 % (37.0-47.0); Hemoglobin 9.3 g/dl (12.0-16.0); Mean Corpuscular Hemoglobin 32.5 pg (25.0-34.0); Mean Corpuscular Hgb Conc 32.3 g/dL (32.0-36.0); Mean Corpuscular Volume 100.7 fL (80.0-100.0); Mean Platelet Volume 11.3 fL (9.4-12.4); Platelet Count 111 K/uL (130-400); RDW Coefficient of Variation 16.1 % (11.5-14.5); Red Blood Count 2.86 M/uL (4.20-5.40); White Blood Count 4.84 K/ul (4.8-10.8)
--- NOTE | 2024-04-30 09:03 | Cardiology Progress Note ---
Date of Service April 30, 2024 Assessment & Plan (1) Chest pain: (2) Elevated troponin: (3) ESRD on dialysis: Plan Assessment: 38 year old female with multiple comorbidities including ESRD on HD 3x per week presents for recurrent chest pain. Request by hospitalist for cardi ac consultation for further recommendations. Plan: 1. Chest pain: -Atypical in nature. Patient reports that her pain improved following today's HD treatment. Patient denied missed dialysis treatments, but per review of ED records, she missed her scheduled treatment on Saturday which would explain her hypervolemia. Likely contributing to her chest pain -Recent echocardiogram last week shows normal LV function and no wall motion abnormalities. -Would recommend that patient continue with her HD treatment regimen. No further cardiac testing is warranted in the IP setting. -Orders were placed by PCP for a outpatient nuclear stress which is pending in the [employer] system, but will need scheduled. Encouraged patient to follow through with testing. 2. Elevated Troponin -Chronic elevation in the setting of ESRD. Recent echo demonstrates normal LV function and no wall motion abnormalities -Plan for outpatient nuclear stress test. Pretest probability for CAD remains low, but not impossible given her multiple comorbidities. 3. ESRD on dialysis -Continue on HD treatments as per current regimen. -Continued management per nephrology. 04/30/2024: -Patient doing well from a cardiac perspective. -Review of telemetry shows no events overnight. -Patient received HD treatment yesterday removing 4L of fluid which seem to relieve her chest discomfort. -As discussed with patient yesterday, no further cardiac work up is needed during course of hospitalization. She is to still plan for her OP nuclear stress test as ordered by her PCP. Patient verbalizes understanding. -Patient is ok for discharge from a cardiac standpoint, when ok per primary team Case has been discussed with Dr. Simons. Further recommendations regarding plan of care as per his assessment. I spent a total of 30 minutes on the date of service in preparation, delivery, documentation of the care provided to the patient excluding any time spent in the performance of separately billed services. ANGÉLICA Melendrez [facility] Cardiology [facility] Admission and Anticipated Discharge Date Admission Date: April 29, 2024 Supervising Physician Co-Signing Physician Notes I have personally performed a history and physical examination on the patient. I have reviewed the advance practitioner's documentation, and I agree with, and take responsibility for the plan of care. 38-year-old female presents to the emergency department with chest discomfort. Volume overload secondary to noncompliance with dialysis treatments. Clinically improved overnight. Patient may be discharged from a cardiovascular perspective. Outpatient Lexiscan nuclear stress test as scheduled. I spent a total of 25 minutes on the date of service in preparation, delivery, and documentation of the care provided to this patient, excluding any time spent in the performance of separately billed services. Juan Simons DO, [facility] Subjective 04/30/2024: Patient seen and examined in follow up today. Feeling well from a cardiac perspective. Denies any chest pain, pressure, palpitations or shortness of breath at time of exam. Labs, vitals, diagnostics, telemetry and documentation reviewed. Telemetry reviewed showing SR rates 80-90's with no acute events overnight. Review of Systems Review of Systems: All systems reviewed & are unremarkable except as noted in HPI & below Physical Exam Constitutional: well developed and well nourished; no acute distress and not ill appearing Neck: normal visual inspection and trachea midline Respiratory: normal respiratory effort, lungs clear to auscultation no cough Auscultation: no crackles, no rales, no rhonchi and no wheezes Cardiovascular: RRR, no murmur, no edema Heart Sounds: normal S1 and normal S2; no murmur Vessels: dorsalis pedis pulses present; no JVD Psychiatric: A+Ox3, euthymic affect Results & Data Vital Signs (Past 12 Hours) Vital Signs Temp Pulse Pulse Resp BP Pulse Ox O2 Del Method 04/30/24 03:10 36.8 C 95 H 19 128/76 93 Room Air 04/29/24 22:59 96 H 04/29/24 22:55 37.0 C 98 H 18 132/78 95 Room Air 04/29/24 22:10 100 H 04/29/24 22:00 Room Air Laboratory Results Cardiac Enzymes 04/29/24 04/29/24 Range/Units 15:18 19:14 Troponin I High Sens 177.0 H* 161.9 H* (0-14) pg/ml CBC 04/30/24 Range/Units 08:40 WBC 4.84 (4.8-10.8) K/ul RBC 2.86 L (4.20-5.40) M/uL Hgb 9.3 L (12.0-16.0) g/dl Hct 28.8 L (37.0-47.0) % Plt Count 111 L (130-400) K/uL Comprehensive Metabolic Panel 04/30/24 Range/Units 08:40 Sodium 135 L (136-145) mmol/L Potassium 5.4 H (3.5-5.1) mmol/L Chloride 91 L (98-107) mmol/L Carbon Dioxide 26 (21-32) mmol/L BUN 53 H D (6-23) mg/dl Creatinine 7.52 H* D (0.6-1.2) mg/dl Glucose 106 H (70-99(Fasting)) mg/dl Calcium 10.2 (8.6-10.3) mg/dl Intake and Output 04/29/24 04/30/24 04/30/24 22:59 06:59 14:59 Intake Total 450 / 570 120 / 570 Output Total 0 / 0 Balance 450 / 570 120 / 570 Intake: Oral 450 / 570 120 / 570 Output: Urine 0 / 0 Other: Weight 77.6 kg 77.6 kg Weight Measurement Method Built in [facility] Patient Weight 05/01/24 06:59 Weight 77.6 kg (1) Chest pain Chest pain type: unspecified Qualified Code(s): R07.9 - Chest pain, unspecified
[2024-04-30 09:13] VITALS: TEMP 98.1; O2SAT 96
[2024-04-30 09:23] LABS: Calcium 10.2 mg/dl (8.6-10.3); Magnesium 2.3 mg/dl (1.7-2.4); Potassium 5.4 mmol/L (3.5-5.1)
[2024-04-30 09:50] LABS: Creatinine Clr Calc Pharmacy 10.7 ml/min; Est GFR (African American) 7.2 ml/min; Est GFR (Non-African American) 6.2 ml/min; Phosphorus 8.8 mg/dl (2.5-4.9)
--- NOTE | 2024-04-30 10:58 | Electrocardiogram Report ---
Test Reason : Blood Pressure : */* mmHG Vent. Rate : 91 BPM Atrial Rate : 91 BPM P-R Int : 162 ms QRS Dur : 112 ms QT Int : 416 ms P-R-T Axes : 50 -35 26 degrees QTcB Int : 511 ms Normal sinus rhythm Possible Left atrial enlargement Left axis deviation Left ventricular hypertrophy Anterolateral infarct Prolonged QT Abnormal ECG When compared with ECG of 28-Apr-2024 22:03, QRS duration has increased Confirmed by Daljit Thompson ([id number]) on 04/30/2024 10:58:08 AM Referred By: REFERRED SELF Confirmed By: Daljit Thompson
--- NOTE | 2024-04-30 11:50 | Discharge Summary ---
Discharge Summary Date of Service April 30, 2024 Principal Dx & Hospital Course #1 = Principal Diagnosis (1) Chest pain: Plan Pt is a 38-year-old female with past medical history significant for type 2 diabetes, end-stage renal disease on hemodialysis, history of acute thrombosis of brachiocephalic vein, hypertension, cardiomegaly, GERD, restless leg syndrome, history of chest pains, history of syncope and collapse, history of migraine, history of anemia, history of transplant rejection, history of depression with anxiety, bipolar disorder, who presents with chest pain. Patient was recently in the hospital from April 19 to April 21 with chest pain and her troponin was elevated at the time but thought to be from underlying renal disease, and also her D-dimer was elevated however venous Doppler and CTA chest were okay except showing some pulmonary edema and mediastinal lymphadenopathy of unknown etiology. Echo was unremarkable except moderate LVH and Grade 1 diastolic heart failure. Saw PCP yesterday after hospital discharge and plan for nuclear stress test. After coming home again she had left-sided chest pain radiating to the left arm and came to the ER. Troponin is less than last admit. Her potassium was 6. ER gave her sodium bicarb , insulin and dextrose and nebs and Lokelma and repeat potassium was 5.8. Patient had scheduled dialysis on day of admission and the ER tried to discharge home to get dialysis. Patient stated if she goes home she will miss the dialysis. So admitted, hx of noncompliance with dialysis. Still having chest pain on admission. Denies headache. No dizziness. No blurred vision. No runny nose or sore throat. No cough. No shortness of breath. Appetite is okay. No nausea. No abdominal pain. Normal bowel movements. She has hemorrhoids and sometimes they bleed. Currently hemodynamics are stable. Atypical Chest pain EKG no acute findings Troponin currently lower than previous admit- was 462 on April 20 Last admit echo stable There is a plan for nuclear stress test as outpatient Cardiology consulted, recommended/stated the following: "38-year-old female presents to the emergency department with chest discom fort. Last dialysis treatment Saturday04/24/2024. Admits to frequent noncompliance with dialysis treatments. Patient volume overloaded with hyperkalemia on admission. Notes discomfort radiating to her left arm. Discomfort significantly improved post dialysis with removal of 4 L. Denies orthopnea or PND. Chest pain likely related to volume overload, acute heart failure in the setting of noncompliance with dialysis treatments. Recommend dialysis treatments as per nephrology to optimize volume status. Discussed importance of compliance with patient at length. Will facilitate outpatient [facility] nuclear stress test as ordered." Please ensure imaging followup and followup with Cardiology. Please encourage dialysis compliance. End-stage renal disease on hemodialysis Hyperkalemia Due for dialysis day of admission Potassium was 6 in the ER Received serum bicarbonate, Lokelma, neb and insulin and dextrose in the ER Repeat potassium was 5.8 had dialysis on 04/29-about 4L of fluid removed Nephrology consulted, appreciate recs. Recommended/stated the following: -"38-year-old female with ESRD secondary to diabetes already has failed k idney transplant and she is currently very noncompliant with dialysis. Her potassium was high at 6 and then came down with medical management alone to 5.4. BUN and creatinine are high and she does have pulmonary congestion on x-ray. These are all expected findings given Anuric ESRD and intermittent compliance. Potassium should come down and we will be taking fluid off. However she shortness treatment quite often because of panic attacks. However at this time she is sleeping comfortably and we are trying not to wake her up unnecessarily. blood pressure is fine. AV fistula is working good. Currently no issues with dialysis. She does have anemia of CKD with a hemoglobin of 8.9 which is below [place] [id number]. we plan to take 5 kilo off and do on 2 k bath for 4hrs." Potassium 5.4 on discharge, Cr down from 11 to 7.52 on day of discharge. PRN and scheduled IV tylenol for associated dialysis pain. pt states that IV tylenol does not work for her but the po regimen at home dose. Advised to continue with regimen and home meds. Consider pain management consult for further evaluation. Please ensure Nephrology follow up. PCP followup for chronic pain. Bleeding hemorrhoids Anemia of chronic kidney disease Hemoglobin 9.4. Close to baseline There is a plan to referral to colorectal surgery by PCP Continue to monitor h/h Close PCP and specialist follow up Mediastinal lymphadenopathy Plan for repeat CAT scan PCP followup Diabetes Hemoglobin 5.6 in November 2023 Sliding scale Asthma Continue home inhalers Depression Anxiety Bipolar disorder Continue home medications On bupropion, carbamazepine hydroxyzine as needed lorazepam as needed and mirtazapine Chronic thrombocytopenia Platelets 125 PCP follow up Notes For Next Care Provider Please encourage compliance with scheduled dialysis sessions Please ensure follow up with Nephrology Please ensure follow up with Cardiology Medication Changes From Visit Varenicline changed from 1mg BID to 0.5 mg daily due to ESRD Admission HPI Per Admitting Provider 38-year-old female with past medical history significant for type 2 diabetes, end-stage renal disease on hemodialysis, history of acute thrombosis of brachiocephalic vein, hypertension, cardiomegaly, GERD, restless leg syndrome, history of chest pains, history of syncope and collapse, history of migraine, history of anemia, history of transplant rejection, history of depression with anxiety, bipolar disorder, presents with chest pain. Patient was recently in the hospital from April 19 to April 21 with chest pain and her troponin was elevated at the time but thought to be from underlying renal disease, and also her D-dimer was elevated however venous Doppler and CTA chest were okay except showing some pulmonary edema and mediastinal lymphadenopathy of unknown etiology. Echo was okay except moderate LVH. Saw PCP yesterday after hospital discharge and plan for nuclear stress test. After coming home again she had left-sided chest pain radiating to the left arm and came to the ER. Troponin is less than last admit. Her potassium was 6. ER gave her sodium bicarb , insulin and dextrose and nebs and Lokelma and repeat potassium was 5.8. Patient has scheduled dialysis today and ER tried to discharge home to get dialysis. Patient stated if she goes home she will miss the dialysis. So we are called for admission. Currently still has chest pain. Denies headache. No dizziness. No blurred vision. No runny nose or sore throat. No cough. No shortness of breath. Appetite is okay. No nausea. No abdominal pain. Normal bowel movements. She has hemorrhoids and sometimes they bleed. Currently hemodynamics are okay. Past medical history. As mentioned above Past surgical history. . Colonoscopy. Left heart catheterization. Cystoscopy , EGD. EGD with endoscopic ultrasound. AV fistulogram. Knee arthroscopy. Laparoscopic cholecystectomy. Ligation of oviducts. Removal of tunneled venous catheter. Renal biopsy. Percutaneous thrombectomy. Renal transplant in 2013. Social history. Quit smoking 2021. Smoked 0.5 pack a day for 11 years. No alcohol use. No drug use. Family history. Mother has diabetes. Hyperthyroidism. Father had depression. Crohn's. Sister has hypertension. Admission Exam Per Admitting Provider General- Not in acute distress Head- atraumatic Eyes- PERRL. ENT- oropharynx clear Neck- supple, no JVD. Lungs- clear to auscultation no wheezing or crackles Heart- regular rhythm; no murmur, no gallop, no erythema seen Abdomen- normal bowel sounds, soft, nontender, no distension Extremities- no pretibial edema, no erythema seen Neuro- alert, oriented ; PERRL, EOMI; no facial palsy; no dysarthria; moves extremities Discharge Exam General: Alert, oriented. No acute distress Psych: Appropriate mood and affect Neuro: No gross deficits while in bed HEENT: NC/AT CV: RRR Resp: Breath sounds clear bilaterally, no increased effort of breathing. Abdomen: Soft, nontender, nondistended Extremities: No edema in lower extremities bilaterally. Updated Medication List Medication Instructions Recorded Confirmed Type albuterol sulfate 2.5 mg/3 mL 2.5 mg inhalation Q4H PRN 06/08/23 04/28/24 History (0.083 %) solution for nebulization Shortness Of Breath Or Wheezing albuterol sulfate 90 mcg/actuation 2 puff inhalation Q6H PRN 06/08/23 04/28/24 History aerosol inhaler Shortness Of Breath Or Wheezing carbamazepine 200 mg tablet 200 mg PO AMPM 06/08/23 04/29/24 History gabapentin 400 mg capsule 400 mg PO TID 06/08/23 04/29/24 History hydroxyzine HCl 25 mg tablet 25 mg PO Q6H PRN Anxiety 06/08/23 04/29/24 History lorazepam 0.5 mg tablet 0.5 mg PO Q8 PRN Anxiety 06/08/23 04/29/24 History mometasone-formoterol HFA 200 2 puff inhalation BID 06/08/23 04/29/24 History mcg-5 mcg/actuation aerosol inhaler (Dulera) omeprazole 20 mg capsule,delayed 20 mg PO DAILYBB 06/08/23 04/29/24 History release vitamin B complex-vitamin C-folic 1 tab PO DAILY 06/08/23 04/29/24 History acid 0.8 mg tablet (Renal-Rika) benzonatate 100 mg capsule 200 mg PO TID PRN Cough 08/29/23 04/29/24 History calcium acetate(phosphat bind) 667 2,001 mg PO UD 08/29/23 04/29/24 History mg capsule cinacalcet 90 mg tablet 90 mg PO QDD 08/29/23 04/29/24 History medroxyprogesterone 150 mg/mL 150 mg IM UD 08/29/23 04/29/24 History intramuscular suspension (Depo-Provera) hydrocortisone 1 %-pramoxine 1 % 1 applic SD QID PRN itching #10 04/11/24 04/29/24 Rx rectal foam (Proctofoam HC) grams lidocaine 5 % topical ointment 1 applic topical QID PRN pain #30 04/11/2412/17 Rx grams bupropion HCl 150 mg 24 hr tablet, 150 mg PO QAM 04/17/24 04/29/24 History extended release mirtazapine 7.5 mg tablet 7.5 mg PO HS 04/17/24 04/29/24 History varenicline 0.5 mg tablet 0.5 mg PO DAILY #30 tabs 04/30/24 Rx Hospital Stay Data Consultations 04/29/24 02:29 ED Decision to Admit Stat 04/29/24 08:00 Consult Nephrology Routine 04/29/24 12:43 Consult Cardiology Routine Diagnostic Imagining Performed Chest X-Ray 04/28/24 22:50 SINGLE VIEW CHEST CLINICAL HISTORY: Atypical chest pain FINDINGS: An AP, portable, upright chest radiograph is compared to study dated 04/19/2024 and correlated with chest CT dated 04/20/2024. The heart is enlarged and there is pulmonary vascular congestion. There is bibasilar atelectasis. No airspace consolidation or large pleural effusion is identified. No pneumothorax is seen. The bony thorax is grossly intact. Vascular stents project over the mediastinum and the right axilla. IMPRESSION: Cardiomegaly with evidence of congestive failure. ACT 112: Negative or not required by law. Electronically signed by: North Quintero M.D. 04/29/2024 7:10 AM Discharge Instructions Given to Patient (Per Discharging Provider) Alexandra, You had dialysis and about 4L of fluids was removed. It is VERY important that you continue to have your dialysis sessions on schedule and do not miss appointments. Please keep close follow up with Nephrology after discharge. You were also seen by cardiology who advised that your chest pain was related to increased fluid from heart failure. Your regularly scheduled dialysis sessions will help with that. Again, please have your dialysis sessions as scheduled. Please keep close follow up with Cardiology after discharge. For your chronic pain, as discussed continue with your current home regimen and close pcp followup. They can consider further evaluation by Pain management for you. Please keep close follow up with your primary care provider, Nephrology and Cardiology after discharge. Please do not hesitate to come back to the emergency room if your symptoms worsen or return. It was a pleasure taking care of you while you were here. Total Time Total Time Spent Total Time Spent (In Minutes): 75
[2024-04-30 12:18] VITALS: BP 107/79; PULSE 102
[2024-05-01] MEDS ORDERED: SODIUM CHLORIDE 0.9% 1,000 ML IV PRN (07:00)
[2024-05-01] MEDS ORDERED: EPOETIN ALFA 10,000 UNITS/ML VIAL IV ONE (07:00)
== END 2024-04-30 12:45 | disposition home or self-care (01) | DRG 640 ==
LOC: ED 22:00 → 1E 04-29 04:31 → SUATTDRO 04-29 04:31 → 1E 04-29 05:05 → 4W 04-29 19:08
DX: D63.1 Anemia in chronic kidney disease; F31.9 Bipolar disorder, unspecified; G25.81 Restless legs syndrome; Y92.019 Unspecified place in single-family (private) house as the place of occurrence of the external cause; E87.5 Hyperkalemia; D69.6 Thrombocytopenia, unspecified; R07.9 Chest pain, unspecified; Z83.3 Family history of diabetes mellitus; K64.9 Unspecified hemorrhoids; Z88.1 Allergy status to other antibiotic agents; N18.6 End stage renal disease; F41.9 Anxiety disorder, unspecified; R59.1 Generalized enlarged lymph nodes; E87.79 Other fluid overload; J45.909 Unspecified asthma, uncomplicated; Z87.891 Personal history of nicotine dependence; E11.22 Type 2 diabetes mellitus with diabetic chronic kidney disease; I50.30 Unspecified diastolic (congestive) heart failure; I13.2 Hypertensive heart and chronic kidney disease with heart failure and with stage 5 chronic kidney disease, or end stage renal disease; Y83.0 Surgical operation with transplant of whole organ as the cause of abnormal reaction of the patient, or of later complication, without mention of misadventure at the time of the procedure; Z91.158 Patient's noncompliance with renal dialysis for other reason; K62.5 Hemorrhage of anus and rectum; T86.12 Kidney transplant failure; Z99.2 Dependence on renal dialysis; K21.9 Gastro-esophageal reflux disease without esophagitis

== ENCOUNTER 2024-05-05 14:14 | Inpatient (IN) ==
[2024-05-05 16:07] LABS: Albumin Globulin Ratio 1.2 (0.9-2); Albumin Level 3.7 gm/dl (3.4-5.0); BUN Creatinine Ratio 7.3 (10-20); Bilirubin,Total 0.6 mg/dl (0.2-1.0); Calcium 9.7 mg/dl (8.6-10.3); Creatinine Clr Calc Pharmacy 7.1 ml/min; Est GFR (African American) 4.3 ml/min; Est GFR (Non-African American) 3.7 ml/min; Potassium 5.2 mmol/L (3.5-5.1); Total Protein 6.7 gm/dl (6.0-8.3)
[2024-05-05 16:13] LABS: Adenovirus PCR Not Detected (NotDetected); Bordetella parapertussis PCR Not Detected (NotDetected); Bordetella pertussis PCR Not Detected (NotDetected); Chlamydia pneumoniae PCR Not Detected (NotDetected); Coronavirus 229E PCR Not Detected (NotDetected); Coronavirus CoV-2 (COVID19)PCR Not Detected (NotDetected); Coronavirus HKU1 PCR Not Detected (NotDetected); Coronavirus NL63 PCR Not Detected (NotDetected); Coronavirus OC43PCR Not Detected (NotDetected); Human Metapneumovirus PCR Not Detected (NotDetected); Influenza A PCR Not Detected (NotDetected); Influenza B PCR Not Detected (NotDetected); Mycoplasma pneumoniae PCR Not Detected (NotDetected); Parainfluenza Virus 1 PCR Not Detected (NotDetected); Parainfluenza Virus 2 PCR Not Detected (NotDetected); Parainfluenza Virus 3 PCR Not Detected (NotDetected); Parainfluenza Virus 4 PCR Not Detected (NotDetected); Respiratory Syncytial VirusPCR Not Detected (NotDetected); Rhinovirus/Enterovirus PCR Not Detected (NotDetected)
[2024-05-05 16:36] LABS: Hematocrit (blood only) 24.1 % (37.0-47.0); Mean Corpuscular Hemoglobin 31.9 pg (25.0-34.0); Mean Corpuscular Hgb Conc 33.2 g/dL (32.0-36.0); Mean Platelet Volume 10.9 fL (9.4-12.4); Platelet Count 129 K/uL (130-400); RDW Coefficient of Variation 16.1 % (11.5-14.5); Red Blood Count 2.51 M/uL (4.20-5.40); White Blood Count 6.32 K/ul (4.8-10.8)
[2024-05-05 16:39] LABS: Basophils # (auto) 0.03 K/uL (0.00-0.20); Basophils % (auto) 0.5 %; Eosinophils % (auto) 1.6 %; Immature Granulocytes # (auto) 0.05 K/uL (0.01-0.20); Immature Granulocytes % (auto) 0.8 %; Lymphocytes # (auto) 0.47 K/uL (1.20-3.40); Lymphocytes % (auto) 7.4 %; Monocytes # (auto) 0.44 K/uL (0.11-0.59); Neutrophils # (auto) 5.23 K/uL (1.40-6.50); Neutrophils % (auto) 82.7 %; Polychromasia 1+
--- NOTE | 2024-05-05 17:03 | XRay Report ---
XR chest 1V portable CLINICAL HISTORY: SOB TECHNIQUE: Single frontal radiograph of the chest was obtained. Comparison: Comparison is made to chest radiograph 04/28/2024 FINDINGS: Vascular stents are seen. Cardiomegaly is noted. The lungs are clear. No evidence of pleural effusion or pneumothorax. IMPRESSION: No acute chest disease. Cardiomegaly is noted. ACT 112: Negative or not required by law. Electronically signed by: Mario Holliday M.D. 05/05/2024 5:02 PM
[2024-05-05] MEDS ORDERED: SODIUM CHLORIDE 0.9% 250 ML IV PRN (18:06)
--- NOTE | 2024-05-05 18:19 | History & Physical Report ---
Date of Service May 05, 2024 Assessment & Plan (1) Rectal bleeding: (2) Abdominal pain: (3) Episode of syncope: (4) Chest pain: Plan Alexandra Arguello is a 38y/o F with PMHx of diet-controlled DM type II, ESRD on hemodialysis, history of acute thrombosis of brachiocephalic vein, HTN, cardiomegaly, GERD, restless leg syndrome, history of chest pains, history of syncope and collapse, history of migraine, history of anemia [baseline Hgb ~9- 11], history of transplant rejection, history of depression with anxiety, bipolar disorder and other problems listed below who presented to the ED via EMS for evaluation of multiple complaints. Please refer to HPI for further details. She was recently admitted 04/29/24-04/30/24 for evaluation of chest pain. Patient was seen and evaluated by cardiology at that time. It was determined that her chest pain was likely related to volume overload, acute heart failure in setting of noncompliance with dialysis treatments. Plan at that time was for her to undergo Lexiscan nuclear stress testing as outpatient. Nephrology also saw and evaluated patient during that admission. Underwent dialysis on 04/29, approximately 4L of fluid was removed. Potassium at time of discharge was 5.4, and her creatinine went down from 11 at time of presentation to 7.52 on day of discharge. Patient also had bleeding hemorrhoids during that admission as well. Plan was to have her referred to colorectal surgery by her PCP office. Rectal Bleeding Abdominal Pain, Acute on Chronic Anemia: Hgb 8 on admission, baseline Hgb ~9-11 per chart review. CTAP pending. FOBT pending. Trend H/H Q6H, transfuse PRN. IV PPI BID. Routine GI consult pending. Anemia panel in AM. Clear liquid diet for now. NPO at midnight pending GI eval tomorrow. Syncopal Episode Flu-Like Symptoms: History as per HPI. RVP negative. No leukocytosis. CT head pending. Fall precautions. Orthostatic vitals pending. Chest Pain H/O Atypical Chest Pain: Initial EKG pending. Initial troponin pending. CXR negative. Repeat trops ordered ISO in case trop comes back elevated. EKG tomorrow AM. EKG w/ chest pain PRN. Most recent echo done 04/20/24 and showed moderate concentric LVH, LVEF=50-55%, grade I diastolic dysfunction. Limited echo pending. Asthma: Stable, continue home meds. DM Type II: No home agents, diet-controlled. SSI while inpatient, BSG checks ACHS. Hgb A1c was 5.6% on 04/20/24. ESRD on Hemodialysis: Follows w/ Dr. Leah Nieves. Cr 11.58 on admission. Missed hemodialysis yesterday (05/04). Undergoes dialysis M/W/F. Routine nephro consult pending. Chronic Thrombocytopenia: Plt count stable at 129 today. Follow daily w/ AM labs. Hyperkalemia: K+ 5.2 on admission. Treat hyperkalemia PRN. Will need her next dialysis session tomorrow pending nephro consult. Other Chronic Medical Conditions: Depression w/ anxiety, bipolar disorder --> Can continue home medications for these specific conditions. DVT Prophylaxis: SCDs/TEDs for now ISO rectal bleeding. Code Status: FULL CODE PCP: Adolph Aldridge MD Disposition: Admit to Med/Surg + Telemetry Patient seen in collaboration with Dr. Zendejas. Please see addendum. I spent a total of 60 minutes coordinating, documenting, and providing care for this patient excluding time spent in the performance of separately billed services. This included personally reviewing all current laboratories and imaging studies, medical reconciliation, outpatient chart review and discussion with specialists. This chart was completed in part utilizing Speech Voice Recognition Software. Grammatical errors, random word insertions, pronoun errors, and incomplete sentences are an occasional consequence of this system due to software limitations, ambient noise, and hardware issues. Any formal questions or concerns about the content, text, or information contained within the body of this dictation should be directly addressed to the provider for clarification. History of Present Illness Chief Complaint: Chest Pain, SOB, Rectal Bleeding, Abdominal Pain & Syncopal Event Primary Care Provider: Adolph Aldridge MD Alexandra Arguello is a 38y/o F with PMHx of diet-controlled DM type II, ESRD on hemodialysis, history of acute thrombosis of brachiocephalic vein, HTN, cardiomegaly, GERD, restless leg syndrome, history of chest pains, history of syncope and collapse, history of migraine, history of anemia [baseline Hgb ~9- 11], history of transplant rejection, history of depression with anxiety, bipolar disorder and other problems listed below who presented to the ED via EMS for evaluation of multiple complaints. History obtained from patient and associated chart review. Patient seen at bedside with Dr. Zendejas. She was recently admitted 04/29/24-04/30/24 for evaluation of chest pain. Patient was seen and evaluated by cardiology at that time. It was determined that her chest pain was likely related to volume overload, acute heart failure in setting of noncompliance with dialysis treatments. Plan at that time was for her to undergo Lexiscan nuclear stress testing as outpatient. Nephrology also saw and evaluated patient during that admission. Underwent dialysis on 04/29, approximately 4L of fluid was removed. Potassium at time of discharge was 5.4, and her creatinine went down from 11 at time of presentation to 7.52 on day of discharge. Patient also had bleeding hemorrhoids during that admission as well. Plan was to have her referred to colorectal surgery by her PCP office. Of note, patient was loaded with ASA 324mg en route to the ED today secondary to chest pain. She missed her dialysis appointment yesterday. Currently undergoing hemodialysis Saturday/Saturday/Saturday. Reports ongoing central chest pain similar to her previous admission. Has noticed increasing SOB with exertion as well. Has not used her rescue inhaler at all. Complaining of some RUQ abdominal pain as well. Reports loose stools. Has been experiencing some rectal bleeding from her hemorrhoids since last night. Denies any black or overtly bloody stool. Mentions she had a temp of 100oF last night. Had a syncopal event earlier today where she collapsed back into her recliner. No noted confusion following the syncopal episode. Denies any loss of bowel or bladder control during the event. She lives at home with herself therefore this was an unwitnessed event. Reports an ongoing dry cough. No recent known sick contacts. Did have some nausea and vomiting on Saturday night. Reports 3-4 episodes of vomiting occurring throughout Saturday night into Saturday morning. Allergies Allergy/AdvReac Type Severity Reaction Status Date / Time cefaclor Allergy Intermediate Rash Verified 04/29/24 00:26 Cephalosporins Allergy Intermediate Rash Verified 04/29/24 00:26 amoxicillin AdvReac Intermediate VOMITING Verified 04/29/24 00:26 clavulanic acid AdvReac Intermediate VOMITING Verified 04/29/24 00:26 Home Medications Medication Instructions Recorded Confirmed Type albuterol sulfate 2.5 mg/3 mL 2.5 mg inhalation Q4H PRN 06/08/23 05/05/24 History (0.083 %) solution for nebulization Shortness Of Breath Or Wheezing albuterol sulfate 90 mcg/actuation 2 puff inhalation Q6H PRN 06/08/23 05/05/24 History aerosol inhaler Shortness Of Breath Or Wheezing carbamazepine 200 mg tablet 200 mg PO AMPM 06/08/23 05/05/24 History gabapentin 400 mg capsule 400 mg PO TID 06/08/23 05/05/24 History hydroxyzine HCl 25 mg tablet 25 mg PO Q6H PRN Anxiety 06/08/23 05/05/24 History lorazepam 0.5 mg tablet 0.5 mg PO Q8 PRN Anxiety 06/08/23 05/05/24 History mometasone-formoterol HFA 200 2 puff inhalation BID 06/08/23 05/05/24 History mcg-5 mcg/actuation aerosol inhaler (Dulera) omeprazole 20 mg capsule,delayed 20 mg PO DAILYBB 06/08/23 05/05/24 History release vitamin B complex-vitamin C-folic 1 tab PO DAILY 06/08/23 05/05/24 History acid 0.8 mg tablet (Renal-Rika) benzonatate 100 mg capsule 200 mg PO TID PRN Cough 08/29/23 05/05/24 History calcium acetate(phosphat bind) 667 2,001 mg PO UD 08/29/23 05/05/24 History mg capsule cinacalcet 90 mg tablet 90 mg PO QDD 08/29/23 05/05/24 History medroxyprogesterone 150 mg/mL 150 mg IM UD 08/29/23 05/05/24 History intramuscular suspension (Depo-Provera) hydrocortisone 1 %-pramoxine 1 % 1 applic OK QID PRN itching #10 04/11/24 05/05/24 Rx rectal foam (Proctofoam HC) grams lidocaine 5 % topical ointment 1 applic topical QID PRN pain #30 04/11/24 05/05/24 Rx grams bupropion HCl 150 mg 24 hr tablet, 150 mg PO QAM 04/17/24 05/05/24 History extended release mirtazapine 7.5 mg tablet 7.5 mg PO HS 04/17/24 05/05/24 History varenicline 0.5 mg tablet 0.5 mg PO DAILY #30 tabs 04/30/24 05/05/24 Rx Past Med/Surg History Problem List (Updated 05/05/24 @ 19:42 by CASTRO ManzoC) Episode of syncope Rectal bleeding Chest pain (Acute) ESRD on dialysis (Acute) Acute hyperkalemia (Acute) Elevated troponin (Acute) Chest pain not due to acute coronary syndrome (Acute) Bleeding external hemorrhoids (Acute) Non-compliance (Acute) Fluid overload (Acute) Uremia (Acute) Anemia (Acute) Depression (Acute) Weakness (Acute) Sleep deprivation (Acute) Hallucinations (Acute) Anemia (Acute) Dialysis patient (Acute) Medical non-compliance (Acute) Acute uremia (Acute) Shortness of breath (Acute) Elevated troponin (Acute) Acute hyperkalemia (Acute) SOB (shortness of breath) (Acute) SOB (shortness of breath) (Acute) CHF (congestive heart failure) (Acute) Acute uremia (Acute) Somnolence (Acute) Medical non-compliance (Acute) Elevated troponin (Acute) Dialysis patient (Acute) Renal failure (Acute) Hyperkalemia (Acute) Thrombocytopenia COVID-19 (Acute) Renal osteodystrophy Anemia in ESRD (end-stage renal disease) ESRD (end stage renal disease) on dialysis (Acute) DM2 (diabetes mellitus, type 2) (Acute) Anxiety Depression Major depressive disorder, recurrent, in partial remission Depression with anxiety Anemia of chronic disease Status post fall last fallNovember 2022 > nasal fx / knee pain, no surgery for either injury > resolved per pt report Prolonged QT interval (Acute) no cardio HTN (hypertension) (Acute) Anemia due to end stage renal disease (Acute) FSGS (focal segmental glomerulosclerosis) (Chronic) DX INITIALLY 2012 (CAUSING ESRD 2012) Medical History Mood disorder Anxiety disorder, unspecified Abnormal chest xray Elevated lactic acid level Transaminitis Pneumonia Metabolic encephalopathy Acute non-ST elevation myocardial infarction (NSTEMI) Pulmonary edema Acute hyperkalemia Acute alteration in mental status Renal failure (ARF), acute on chronic Encephalopathy Rectal bleeding reason for up coming colonoscopy Facial fracture GI bleed ESRD (end stage renal disease) on dialysis Symptomatic anemia Tobacco abuse DVT prophylaxis Fistula right arm (currently being used) and left arm Dialysis patient SATURDAY/SAT/SATURDAY AT [facility] GERD (gastroesophageal reflux disease) Bipolar disorder Restless leg syndrome Peripheral neuropathy Asthma rare res inh use History of abnormal cervical Papanicolaou smear Elevated troponin Acute electrocardiogram changes Surgical History H/O eye surgery LASER SURGERY LEFT History of surgery left arm d/t clot in arm from AV fistula use @ [facility] History of surgery (~09/09/20) perm cath > since removed History of colonoscopy Kidney transplant recipient 2013 AT [facility] History of tooth extraction three TOOTH History of cardiac cath 2016 NO STENTS AVF (arteriovenous fistula) bilat upper arms ---currently using right for dialysis Family History Grandmother Hx of CABG Mother Diabetes Father Crohn's disease Grandfather (Maternal) Diabetes Uncle Diabetes Grandmother (Maternal) Family history of reaction to anesthesia difficulty waking with colonoscopy Social History Smoking Status: Former smoker Tobacco Type: Cigarettes Cigarettes Per Day: 20; Second Hand Exposure: No; Do You Dip or Chew Tobacco: No; Hx Alcohol Use: No Hx Substance Use: No Preferred Language: Italian Communication Ability: Effective Rn Hematology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 Beliefs That Will Affect Care: None marital status: Single Current Living Situation: Family Current Living Situation Comment: boyfriend recently kicked patient out of house pt reports How many Children do You have: 3 Feels Safe at Home: Yes Assistive Devices: Crutches Review of Systems Review of Systems: At least ten systems reviewed and negative, except as noted in the HPI. Physical Exam Physical Exam: Please refer to Dr. Zendejas's addendum for physical examination findings. Results & Data Results & Data Vital Signs (Past 12 Hours) Vital Signs Temp Pulse Pulse Resp BP BP Pulse Ox 05/05/24 17:58 97 H 05/05/24 16:07 97 H 16 122/79 94 05/05/24 15:12 103 H 05/05/24 14:30 100 H 20 154/92 H 96 05/05/24 14:18 36.9 C 101 H 20 154/92 H 96 O2 Del Method 05/05/24 17:58 05/05/24 16:07 Room Air 05/05/24 15:12 05/05/24 14:30 05/05/24 14:18 Room Air Laboratory Results Short CBC 05/05/24 Range/Units 15:28 WBC 6.32 (4.8-10.8) K/ul Hgb 8.0 L (12.0-16.0) g/dl Hct 24.1 L (37.0-47.0) % Plt Count 129 L (130-400) K/uL BMP 05/05/24 15:28 Sodium 133 L Potassium 5.2 H Chloride 87 L Carbon Dioxide 25 BUN 84 H Creatinine 11.58 H* Glucose 119 H Calcium 9.7 Liver Function 05/05/24 Range/Units 15:28 Total Bilirubin 0.6 (0.2-1.0) mg/dl AST 14 (13-39) U/L ALT 6 L (7-52) U/L Alkaline Phosphatase 89 (34-104) U/L Albumin 3.7 (3.4-5.0) gm/dl Diagnostic Findings Chest X-Ray 05/05/24 16:16 XR chest 1V portable CLINICAL HISTORY: SOB TECHNIQUE: Single frontal radiograph of the chest was obtained. Comparison: Comparison is made to chest radiograph 04/28/2024 FINDINGS: Vascular stents are seen. Cardiomegaly is noted. The lungs are clear. No evidence of pleural effusion or pneumothorax. IMPRESSION: No acute chest disease. Cardiomegaly is noted. ACT 112: Negative or not required by law. Electronically signed by: Mario Holliday M.D. 05/05/2024 5:02 PM Code Status & VTE Plan Code Status FULL CODE Supervising Physician Co-Signing Physician Notes Patient is a 38-year-old female with history of end-stage renal disease on dialysis, diabetes mellitus--diet controlled, GERD, anemia of chronic disease, asthma, chronic thrombocytopenia, hypertension and other medical problems presents with history of syncopal episode. She states that she was trying to get out of her chair and suddenly collapsed and fell back into the chair. She denies any bowel or bladder incontinence, seizure-like activity. Patient also has been having dizziness with positional change. She states having low-grade temperature yesterday associated with weakness. Also states having pleuritic chest pain associated with shortness of breath. She missed her dialysis on Saturday stating that she could not go for the dialysis due to generalized weakness. She noticed to have rectal bleeding which she attributes to hemorrhoids. Denies any melena. She also states having some abdominal discomfort associated with it. Denies any melena, hemoptysis, dysuria. Please review HPI for complete details of presentation. CT head, CT abdomen, EKG, anemia workup, troponin levels currently pending. I personally reviewed blood work which showed drop in hemoglobin from baseline 8.0, hematocrit 24.1. Thrombocytopenia 1 29K. Potassium elevated at 5.2. Creatinine 11.58. Sodium 133, chloride 87. Chest x-ray showed no acute process. Bio fire negative. Physical Exam: Vitals signs as noted above General Appearance:Obese, no apparent distress Head: normocephalic, Atraumatic Eyes: normal inspection, EOMI Neck: supple, Trachea midline Respiratory/Chest: Normal breath sounds, CTA, No accessory muscle use Cardiovascular: S1, S2, No murmur Abdomen/GI:Soft, right upper quadrant mild tender, Bowel sounds present, no guarding or rigidity Extremities/Musculoskeletal:normal inspection, no edema Neurologic/Psych:AAOX3, grossly no focal neurological deficits Skin: normal color, warm Syncopal episode Flulike symptoms Rectal bleeding Acute on chronic anemia End-stage renal disease on dialysis Hyperkalemia Atypical chest pain Generalized weakness BioFire negative CT abdomen, CT head pending Check orthostatics Monitor on telemetry Clear liquid diet, n.p.o. after midnight Avoid anticoagulation, NSAIDs ED physician ordered PRBC Monitor H&H and transfuse as needed Started on PPI Gastroenterology consulted Nephrology consulted to help with dialysis Monitor closely for volume status Check EKG, trend troponins, limited echo Monitor potassium levels PT OT as able Anemia workup pending Further management based on imaging studies, anemia workup, EKG I personally interviewed and examined at bedside. Patient's care is coordinated with Radha Li PA-C. I have reviewed the advanced practitioner's documentation, and I agree with plan of care. Please refer to the documentation above for details of patient's presentation and for discussion of other issues. I spent a total [id number] coordinating, documenting, and providing care for this patient excluding time spent in the performance of separately billed services. (2) Abdominal pain Abdominal location: right upper quadrant Qualified Code(s): R10.11 - Right upper quadrant pain (3) Episode of syncope Syncope type: unspecified Qualified Code(s): R55 - Syncope and collapse (4) Chest pain Chest pain type: unspecified Qualified Code(s): R07.9 - Chest pain, unspecified
--- NOTE | 2024-05-05 18:36 | Emergency Department Note ---
Impression & Plan Symptomatic anemia, Acute hyperkalemia, Syncope, Dialysis complication ED Provider Note NAME: NATHALIA DUTTON AGE: 38 SEX: F : 1985 ARRIVES VIA: Ambulance INFORMANT: Patient, ED PROVIDER(S): Leif Diaz MD CHIEF COMPLAINT: Weakness, syncope HPI: This is a 38-year-old female history of ESRD on hemodialysis presenting for weakness, syncope. Patient notes that she attempted to get up today and fainted falling back into her chair. She notes that she has been bleeding from her rectum due to hemorrhoids. She notes she think she has low blood levels. Otherwise she think she may have had a flulike illness as she has low-grade temperatures, weakness. She notes some slight shortness of breath. She has noted chronic chest pain. She did miss dialysis today because of the symptoms. ROS: See above HPI for pertinent positives & negatives. A total of 10 systems reviewed and were otherwise negative. PAST MEDICAL HISTORY: See Below PAST SURGICAL HISTORY: See Below FAMILY HISTORY: See Below SOCIAL HISTORY: See Below HOME MEDICATIONS: See Below ALLERGIES: See Below VITALS: See Below PHYSICAL EXAMINATION: General: resting comfortably in no acute distress Head: Normocephalic and atraumatic Eyes: Normal inspection, extraocular muscles intact Ear, nose, throat: Normal external exam Neck: Normal range of motion Respiratory: speaking in full sentences, symmetric chest rise, no respiratory distress Cardiovascular: Regular rate/rhythm Extremities: moves all extremities Neuro: The patient awake and alert, appropriately conversive, symmetric faces, no focal deficits MEDICAL DECISION MAKING: This is a 38-year-old female with history of ESRD on hemodialysis presenting for weakness and syncope. Patient is hemodialysis dependent, missed dialysis. Will check for signs of hyperkalemia. -Patient's hemoglobin is low at 8, this is downtrending, over 1.3 points since last 5 days. Otherwise patient had potassium of 5.2. -Chest Xray independently interpreted by me showing no pneumothorax, focal opacity, or pleural effusions. -Blood work otherwise reviewed showing signs of missed dialysis including electrolyte disturbances, elevated creatinine. Upper respiratory panel negative -With patient's low hemoglobin, symptomatic syncope due to this and missed dialysis with potassium 5.3, will admit for further workup. Patient admitted under Dr. Zendejas Differential diagnosis: Cardiac syncope, anemia, fluid overload, upper respiratory infection, pneumonia ER treatment provided: See below Diagnostics interpreted by me: ECG: None Cardiac Monitoring: An order was placed for continuous cardiac monitoring. The monitor shows a rate of 102 with sinus rhythm. Laboratory studies: As stated above and show below. Imaging studies: See below. Past Med/Surg History Problem List (Updated 05/05/24 @ 22:57 by Leif Diaz MD) Dialysis complication (Acute) Syncope (Acute) Acute hyperkalemia (Acute) Symptomatic anemia (Acute) Episode of syncope Rectal bleeding Chest pain (Acute) ESRD on dialysis (Acute) Acute hyperkalemia (Acute) Elevated troponin (Acute) Chest pain not due to acute coronary syndrome (Acute) Bleeding external hemorrhoids (Acute) Non-compliance (Acute) Fluid overload (Acute) Uremia (Acute) Anemia (Acute) Depression (Acute) Weakness (Acute) Sleep deprivation (Acute) Hallucinations (Acute) Anemia (Acute) Dialysis patient (Acute) Medical non-compliance (Acute) Acute uremia (Acute) Shortness of breath (Acute) Elevated troponin (Acute) Acute hyperkalemia (Acute) SOB (shortness of breath) (Acute) SOB (shortness of breath) (Acute) CHF (congestive heart failure) (Acute) Acute uremia (Acute) Somnolence (Acute) Medical non-compliance (Acute) Elevated troponin (Acute) Dialysis patient (Acute) Renal failure (Acute) Hyperkalemia (Acute) Thrombocytopenia COVID-19 (Acute) Renal osteodystrophy Anemia in ESRD (end-stage renal disease) ESRD (end stage renal disease) on dialysis (Acute) DM2 (diabetes mellitus, type 2) (Acute) Anxiety Depression Major depressive disorder, recurrent, in partial remission Depression with anxiety Anemia of chronic disease Status post fall last fallNovember 2022 > nasal fx / knee pain, no surgery for either injury > resolved per pt report Prolonged QT interval (Acute) no cardio HTN (hypertension) (Acute) Anemia due to end stage renal disease (Acute) FSGS (focal segmental glomerulosclerosis) (Chronic) DX INITIALLY 2012 (CAUSING ESRD 2012) Medical History Mood disorder Anxiety disorder, unspecified Abnormal chest xray Elevated lactic acid level Transaminitis Pneumonia Metabolic encephalopathy Acute non-ST elevation myocardial infarction (NSTEMI) Pulmonary edema Acute hyperkalemia Acute alteration in mental status Renal failure (ARF), acute on chronic Encephalopathy Rectal bleeding reason for up coming colonoscopy Facial fracture GI bleed ESRD (end stage renal disease) on dialysis Symptomatic anemia Tobacco abuse DVT prophylaxis Fistula right arm (currently being used) and left arm Dialysis patient SATURDAY/SAT/SATURDAY AT [facility] GERD (gastroesophageal reflux disease) Bipolar disorder Restless leg syndrome Peripheral neuropathy Asthma rare res inh use History of abnormal cervical Papanicolaou smear Elevated troponin Acute electrocardiogram changes Surgical History H/O eye surgery LASER SURGERY LEFT History of surgery left arm d/t clot in arm from AV fistula use @ [facility] History of surgery (~09/09/20) perm cath > since removed History of colonoscopy Kidney transplant recipient 2013 AT [facility] [address] [address] History of tooth extraction three TOOTH History of cardiac cath 2016 NO STENTS AVF (arteriovenous fistula) bilat upper arms ---currently using right for dialysis Family History Grandmother Hx of CABG Mother Diabetes Father Crohn's disease Grandfather (Maternal) Diabetes Uncle Diabetes Grandmother (Maternal) Family history of reaction to anesthesia difficulty waking with colonoscopy Social History Smoking Status: Former smoker Tobacco Type: Cigarettes Cigarettes Per Day: 20; Second Hand Exposure: No; Do You Dip or Chew Tobacco: No; Tobacco Cessation Education Requested by Patient: No Hx Alcohol Use: No Hx Substance Use: No Preferred Language: Nepali Communication Ability: Effective Services Engineer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 Beliefs That Will Affect Care: None marital status: Single Current Living Situation: Alone Current Living Situation Comment: boyfriend recently kicked patient out of house pt reports How many Children do You have: 3 Other Information That Helps Us Care for You: No Feels Safe at Home: Yes Safety Concerns: Feels Safe At This Time Assistive Devices: Crutches Allergies Allergies Allergy/AdvReac Type Severity Reaction Status Date / Time cefaclor Allergy Intermediate Rash Verified 04/29/24 00:26 Cephalosporins Allergy Intermediate Rash Verified 04/29/24 00:26 amoxicillin AdvReac Intermediate VOMITING Verified 04/29/24 00:26 clavulanic acid AdvReac Intermediate VOMITING Verified 04/29/24 00:26 Home Meds Home Medications Medication Instructions Recorded Confirmed albuterol sulfate 2.5 mg/3 mL 2.5 mg inhalation Q4H PRN 06/08/23 05/05/24 (0.083 %) solution for nebulization Shortness Of Breath Or Wheezing albuterol sulfate 90 mcg/actuation 2 puff inhalation Q6H PRN 06/08/23 05/05/24 aerosol inhaler Shortness Of Breath Or Wheezing carbamazepine 200 mg tablet 200 mg PO AMPM 06/08/23 05/05/24 gabapentin 400 mg capsule 400 mg PO TID 06/08/23 05/05/24 hydroxyzine HCl 25 mg tablet 25 mg PO Q6H PRN Anxiety 06/08/23 05/05/24 lorazepam 0.5 mg tablet 0.5 mg PO Q8 PRN Anxiety 06/08/23 05/05/24 mometasone-formoterol HFA 200 2 puff inhalation BID 06/08/23 05/05/24 mcg-5 mcg/actuation aerosol inhaler (Dulera) omeprazole 20 mg capsule,delayed 20 mg PO DAILYBB 06/08/23 05/05/24 release vitamin B complex-vitamin C-folic 1 tab PO DAILY 06/08/23 05/05/24 acid 0.8 mg tablet (Renal-Rika) benzonatate 100 mg capsule 200 mg PO TID PRN Cough 08/29/23 05/05/24 calcium acetate(phosphat bind) 667 2,001 mg PO UD 08/29/23 05/05/24 mg capsule cinacalcet 90 mg tablet 90 mg PO QDD 08/29/23 05/05/24 medroxyprogesterone 150 mg/mL 150 mg IM UD 08/29/23 05/05/24 intramuscular suspension (Depo-Provera) bupropion HCl 150 mg 24 hr tablet, 150 mg PO QAM 04/17/24 05/05/24 extended release mirtazapine 7.5 mg tablet 7.5 mg PO HS 04/17/24 05/05/24 Previous Rx's Medication Instructions Recorded hydrocortisone 1 %-pramoxine 1 % 1 applic UT QID PRN itching #10 04/11/24 rectal foam (Proctofoam HC) grams lidocaine 5 % topical ointment 1 applic topical QID PRN pain #30 04/11/24 grams varenicline 0.5 mg tablet 0.5 mg PO DAILY #30 tabs 04/30/24 Results & Data (ED) Vital Signs Vital Signs - 24 hr 05/05/24 14:18 05/05/24 14:30 05/05/24 15:12 Temperature 36.9 C Temperature Source Oral Pulse Rate 101 H 103 H Pulse Rate [Apical] 100 H Pulse Rhythm [Apical] Pulse Strength [Apical] Respiratory Rate 20 20 Respiratory Effort / Characteristics Respiratory Depth Respiratory Pattern Blood Pressure 154/92 H Blood Pressure [Left Arm] 154/92 H Blood Pressure Mean 112 Blood Pressure Mean [Left Arm] 112 Blood Pressure Position Sitting Blood Pressure Position [Left Arm] Pulse Oximetry 96 96 Oxygen Delivery Method Room Air Sepsis Recent Fever Within 48 Hours Yes Sepsis New/Unexplained Change in Mental Status No Sepsis Action Taken by Nursing No Action Required 05/05/24 16:07 05/05/24 17:58 05/05/24 18:10 Temperature 36.7 C Temperature Source Oral Pulse Rate 97 H Pulse Rate [Apical] 97 H 98 H Pulse Rhythm [Apical] Regular Regular Pulse Strength [Apical] Normal Normal Respiratory Rate 16 14 Respiratory Effort / Characteristics Non-Labored Spontaneous Non-Labored Spontaneous Respiratory Depth Normal Normal Respiratory Pattern Regular Regular Blood Pressure Blood Pressure [Left Arm] 122/79 151/92 H Blood Pressure Mean Blood Pressure Mean [Left Arm] 93 111 Blood Pressure Position Blood Pressure Position [Left Arm] Lying Sitting Pulse Oximetry 94 98 Oxygen Delivery Method Room Air Room Air Sepsis Recent Fever Within 48 Hours Sepsis New/Unexplained Change in Mental Status Sepsis Action Taken by Nursing Laboratory Data 05/05/24 21:24 05/05/24 15:28 Lab Results 05/05/24 05/05/24 Range/Units 14:24 15:28 WBC 6.32 (4.8-10.8) K/ul RBC 2.51 L (4.20-5.40) M/uL Hgb 8.0 L (12.0-16.0) g/dl Hct 24.1 L (37.0-47.0) % MCV 96.0 (80.0-100.0) fL MCH 31.9 (25.0-34.0) pg MCHC 33.2 (32.0-36.0) g/dL RDW Std Deviation 57.0 H (36.4-46.3) fL RDW Coeff of Laith 16.1 H (11.5-14.5) % Plt Count 129 L (130-400) K/uL MPV 10.9 (9.4-12.4) fL Immature Gran % (Auto) 0.8 % Neut % (Auto) 82.7 % Lymph % (Auto) 7.4 % Nye % (Auto) 7.0 % Eos % (Auto) 1.6 % Baso % (Auto) 0.5 % Neut # (Auto) 5.23 (1.40-6.50) K/uL Lymph # (Auto) 0.47 L (1.20-3.40) K/uL Nye # (Auto) 0.44 (0.11-0.59) K/uL Eos # (Auto) 0.10 (0.00-0.50) K/uL Baso # (Auto) 0.03 (0.00-0.20) K/uL Immature Gran # (Auto) 0.05 (0.01-0.20) K/uL Polychromasia 1+ Sodium 133 L (136-145) mmol/L Potassium 5.2 H (3.5-5.1) mmol/L Chloride 87 L (98-107) mmol/L Carbon Dioxide 25 (21-32) mmol/L Anion Gap 21 H (3-11) BUN 84 H (6-23) mg/dl Creatinine 11.58 H* (0.6-1.2) mg/dl Est Cr Clr Drug Dosing 7.1 ml/min Est GFR ( Amer) 4.3 ml/min Est GFR (Non-Af Amer) 3.7 ml/min BUN/Creatinine Ratio 7.3 L (10-20) Glucose 119 H (70-99(Fasting)) mg/dl Calcium 9.7 (8.6-10.3) mg/dl Total Bilirubin 0.6 (0.2-1.0) mg/dl AST 14 (13-39) U/L ALT 6 L (7-52) U/L Alkaline Phosphatase 89 (34-104) U/L Total Protein 6.7 (6.0-8.3) gm/dl Albumin 3.7 (3.4-5.0) gm/dl Globulin 3.0 (2.5-4.0) gm/dl Albumin/Globulin Ratio 1.2 (0.9-2) Adenovirus (PCR) Not Detected (NotDetected) B. pertussis DNA (PCR) Not Detected (NotDetected) B.parapertussis DNA PCR Not Detected (NotDetected) C. pneumoniae DNA (PCR) Not Detected (NotDetected) Coronavirus OC43 (PCR) Not Detected (NotDetected) Coronavirus HKU1 (PCR) Not Detected (NotDetected) Coronavirus 229E (PCR) Not Detected (NotDetected) SARS-CoV-2 (PCR) Not Detected (NotDetected) Coronavirus NL63 (PCR) Not Detected (NotDetected) Human Metapneumovir PCR Not Detected (NotDetected) Influenza Type A (PCR) Not Detected (NotDetected) Influenza Type B (PCR) Not Detected (NotDetected) M. pneumoniae (PCR) Not Detected (NotDetected) Parainfluenza 1 (PCR) Not Detected (NotDetected) Parainfluenza 2 (PCR) Not Detected (NotDetected) Parainfluenza 3 (PCR) Not Detected (NotDetected) Parainfluenza 4 (PCR) Not Detected (NotDetected) RSV (PCR) Not Detected (NotDetected) Entero/Rhino (PCR) Not Detected (NotDetected) Administered Medications Acetaminophen (Acetaminophen 325 Mg Tab) 650 mg PO Q6H PRN PRN Reason: Pain or Fever Stop: 06/04/24 21:21 Last Admin: 05/05/24 21:32 Dose: 650 mg Documented By: SORAIDA Carbamazepine (Carbamazepine 200 Mg Tablet) 200 mg PO BID [facility] Stop: 06/04/24 20:59 Last Admin: 05/05/24 20:50 Dose: 200 mg Documented By: SORAIDA Gabapentin (Gabapentin 400 Mg Cap) 400 mg PO TID NIKKI Stop: 06/04/24 20:59 Last Admin: 05/05/24 21:33 Dose: 400 mg Documented By: SORAIDA Pantoprazole Sodium 40 mg/ (Syringe) 10 mls @ 5 mls/min IV BID NIKKI Stop: 06/04/24 20:59 Last Admin: 05/05/24 20:50 Dose: 5 mls/min Documented By: SORAIDA Insulin Aspart (Insulin Aspart Per Unit Charge) 0 units SC ACHS NIKKI Stop: 06/04/24 20:59 Last Admin: 05/05/24 21:17 Dose: 4 units Documented By: SORAIDA Co-signed By: ISRA Mirtazapine (Mirtazapine Tab 15 Mg Tab) 7.5 mg PO HS NIKKI Stop: 06/04/24 20:59 Last Admin: 05/05/24 21:33 Dose: 7.5 mg Documented By: SORAIDA Discontinued Medications Hydromorphone HCl (Hydromorphone Inj 0.5 Mg/0.5 Ml Syr) 0.25 mg IV NOW STA Stop: 05/05/24 22:15 Last Admin: 05/05/24 22:38 Dose: 0.25 mg Documented By: SORAIDA Acetaminophen (Ofirmev) 1,000 mg in 100 mls @ 400 mls/hr IV Q8H PRN PRN Reason: Pain or Fever Stop: 05/08/24 20:18 Last Infusion: 05/05/24 21:24 Dose: Infused Documented By: Infusion: 05/05/24 21:18 Dose: 0 mls/hr Documented By: Admin: 05/05/24 21:18 Dose: 400 mls/hr Documented By: SORAIDA Imaging Data Radiologist's Impression: Chest X-Ray 05/05/24 16:16 XR chest 1V portable CLINICAL HISTORY: SOB TECHNIQUE: Single frontal radiograph of the chest was obtained. Comparison: Comparison is made to chest radiograph 04/28/2024 FINDINGS: Vascular stents are seen. Cardiomegaly is noted. The lungs are clear. No evidence of pleural effusion or pneumothorax. IMPRESSION: No acute chest disease. Cardiomegaly is noted. ACT 112: Negative or not required by law. Electronically signed by: Mario Holliday M.D. 05/05/2024 5:02 PM Discharge Plan Visit Data Chief Complaint: Illness ED Provider: Leif Diaz Discharge Problem: Symptomatic anemia, Acute hyperkalemia, Syncope, Dialysis complication Patient Disposition: Admitted As Inpatient Discharge Instructions Interventions: ED Discharge Assessment Last Done: 05/05/24 19:54
[2024-05-05] MEDS ORDERED: POLYETHYLENE (MIRALAX) 17 GM PACK PO PRN (20:19)
[2024-05-05] MEDS ORDERED: CARBOHYDRATES FOR HYPOGLYCEMIA PO PRN (20:19)
[2024-05-05] MEDS ORDERED: DEXTROSE 50% 50 ML SYRINGE IV PRN (20:19)
[2024-05-05] MEDS ORDERED: GLUCOSE 40% GEL 15 GM TUBE PO PRN (20:19)
[2024-05-05] MEDS ORDERED: GLUCAGON FOR INJ 1 MG VIAL SQ PRN (20:19)
[2024-05-05] MEDS ORDERED: ALBUTEROL 0.083% NEBU SOLN 3 ML VIAL INH PRN (20:19)
[2024-05-05] MEDS ORDERED: GLUCOSE 10 TAB/TUBE PO PRN (20:19)
[2024-05-05] MEDS ORDERED: CALCIUM ACETATE 667 MG CAP/TAB PO PRN (20:31)
[2024-05-05] MEDS: PANTOprazole 40 MG in SYRINGE 0 ML IV SCH (20:50)
[2024-05-05] MEDS: carBAMazepine 200 MG TABLET PO SCH (20:50)
[2024-05-05] MEDS: INSULIN ASPART PER UNIT CHARGE SC SCH (21:17)
[2024-05-05] MEDS: ACETAMINOPHEN 1,000 MG/100 ML VIAL IV PRN (21:18)
[2024-05-05] MEDS: ACETAMINOPHEN 325 MG TAB PO PRN (21:32)
[2024-05-05] MEDS: GABAPENTIN 400 MG CAP PO SCH (21:33)
[2024-05-05] MEDS: MIRTAZAPINE TAB 15 MG TAB PO SCH (21:33)
[2024-05-05 21:39] LABS: Hematocrit (blood only) 25.2 % (37.0-47.0); Hemoglobin 8.4 g/dl (12.0-16.0)
[2024-05-05] MEDS: HYDROmorphone INJ 0.5 MG/0.5 ML SYR IV STA (22:38)
--- OUTSIDE RECORDS SUMMARY | 2024-05-05 22:42 | External Medical Summary | Summary of Care ---
Author Name Unknown Organization [facility] Address [address] [place] [address] Phone [phone] Care Team Providers Care Slab Stripper Name Role Phone Adolph Aldridge MD Primary Care Provider [phone] Reason for Visit * Reason Onset Date Comments Other 05/01/2024 AVF Encounter Details Date Type Department Care Team (Late st Contact Info) Description 05/01/2024 Telephone Vascular Surg [facility] [address] [place] [address] Carmelo Ramos MD [address] [place] [address] Other (AVF) Allergies Active Allergy Reactions Criticality Noted Date Comments Amoxicillin Low 01/27/2021 Other reaction(s): VOMITING Cefaclor Rash Low 11/23/2011 Cephalosporins Rash Low 05/16/1999 documented as of this encounter (statuses as of 05/04/2024) Medications Medication Sig Dispensed Refills Start Date [...] 24 Tablet 03/14/2022 Active OneTouch Delica Plus Aprisq14HTetowprsg ns:DM type 2 with diabetic peripheral neuropathy [...] the morning and at bedtime. Active PEG 4086-HLc-[id number]-NaC l-NaSulf 236 GM Oral Solution Reconstituted Please [...] per day., Informant: Patient, Reported on 02/06/2024 DexLuminous Medical G7 SensorIndications: Type 2 diabetes mellitus with hemoglobin A1c goal of less than 7.0% ([facility]) Use to check sugars continuously. E 11.9 change every 10 days 3 Each 11 01/06/2024 Active hydrOXYzine HCl 25 MG Oral Tablet TAKE 1 TABLET BY MOUTH EVERY 6 HOURS NEEDED FOR ANXIETY 02/12/2024 Active Dexcom G7 Business Process Modeler Device USE DAILY TO CHECK BLOOD SUGARS [...] as of this encounter (statuses as of 05/04/2024) Active Problems Problem Noted Date Diagnosed Date [...] as of this encounter (statuses as of 05/04/2024) Resolved Problems Problem Noted Date Diagnosed Date [...] and PP sugars <120. Report levels to [facility] department weekly. 10. Advised patient that Glyburide, Metformin, and insulin may be safely used during for the control of blood sugar levels. Alexandra will begin her insulin therapy today. 11. Dietary consult to be done to instruct patient on appropriate nutrition and diet to aid in control of blood sugars. 12. Recommend urine culture each trimester. 13. Recommend [facility] ultrasound for limited anatomy at 12-14 [...] if early screen is normal. 5. Recommend M ultrasound for anatomy screen at 20 weeks [...] Marva CURRIE, contaminated patient to repepat OB [facility] 03/19/2011 01/29/20 17 Overview: 03/19/2011 Needs enrolled in [facility] once MA active. Marva RN- Enrolled 03/27/2011 [...] as of this encounter (statuses as of 05/04/2024) Immunizations Name Administration Dates Next Due COVID-19 mRNA, LNP-s, No Pre serve, 2-Dose Series (Moderna) 12/14/2020,11/16/2020 DTWP - Dipth/Tet/Whole Cell Pertussis ,06/28/1986,04/19/1986,02/15 H1N1 2009 Influenza, Intranasal 08/11/2009 Hepatitis B Vaccine 05/21/1998,12/18/1997,1997 MMR - Measles/Mumps/Rubella Vaccine 10/11/2011,0 11/23/1993,02/21/1987 OPV - Polio Virus Vaccine (Oral) 03/23/1991,03/27,02/15/1986 PPD 08/12/2002 Pneumococcal Conjugate Vacc, 13 Valent (Prevnar) 03/10/2020 Pneumococcal Polysaccharide PPV23 (Pneumovax) 03/26/2017,12/05/2006 Seasonal Influenza, PF, 6 M & above, IM , (FluLaval or Fluzone) 05/26/2023,05/26/2020,06/11/2019,05/02 Seasonal Influenza, Trivalen t, (IIV3), with Preserv, (Fluzone) 05/06/2017,05/05/2016,06/25/2013,08/05,07/02/2011,05/05/2009 TD - Tetanus/Diptheria (ADULT) 08/12/2002 TDAP, Age 7 and older, IM (Adacel) [...] encounter Miscellaneous Notes * Telephone Encounter - Anthony Beckett PA-C - 05/04/2024 9:00 AM EDT Please set pt up for return visit @ [facility] with Dr. Bloom, next open spot, no need to overbook * Telephone Encounter - Marlin Stockton OSA - 05/01/2024 3:41 PM EDT Hello! I am emailing regarding a mutual patient Kait Arguello. She had a fistulogram with Dr. Dixon on 02/06/24 for pain in R upper arm AVF, high venous pressures, and difficulty cannulating. At that time he ballooned the AVF but said there was still residual stenosis. She then had a follow up with Dr. Bloom at [facility] who explained to her that this would not be a permanent fix and may need resolved later. She recently was in the hospital and the RN dialyzing her reported that she c/o pain at this session. She came back to us today and had pain again in her fistula and came off treatment 10 minutes early because of this. I don't want to let it continue to get to the point that it did last time so this is why I am letting you know. Thank you! Ary Cedillo RN [place] [facility] [address] [place] [address] [address] [place] [address] documented in this encounter Plan of Treatment Upcoming Encounters Date Type Department Care Team (Late st Contact Info) Description 05/05/2024 11:20 AM EDT Office Visit [place] [address] [place] [id number] Adolph Aldridge MD [address] [place] [address] 05/12/2024 1:00 PM EDT Office Visit Orthopaedics [facility] [address] [facility] [place] [address] Ary Rowe MD [address] [place] [address] 09/01/2024 1:40 PM EST Office Visit [place] [address] [id number] Adolph Aldridge MD [address] [place] [address] Scheduled Procedures Name Priority Associated Diagnoses Date/Ti [...] this encounter Medical Devices Implanted Type Area Training Executive Device Identifier Shelf Expiration Date Model / Serial / Lot Stent Protege Gps [id number] - [id number] Implanted:Qty : 1 on 09/29/2020 by Carmelo Ramos MD at [place] [facility] Left: Chest [employer] : VASCULAR [id number] 09/20/2022 [id number] / / [id number] Stent Viab [id number] - [id number] Implanted:Qty : 1 on 04/16/2023 by Carmelo Ramos MD at [place] [facility] Right: Subclavian [employer] [id number] 01/26/2026 [id number] / [id number] / [id number] documented as of this encounter Advance Directives [...] Power of Attor mamadou? No Care Teams Slab Stripper Relationship Specialty Start Date End Date Adolph Aldridge MD [address] [facility] [place] [address] PCP - General Family Medicine 10/21/18 documented as of this encounter
--- OUTSIDE RECORDS SUMMARY | 2024-05-05 22:42 | External Medical Summary | Summary of Care ---
Author Name Unknown Organization [facility] Address [address] [place] [address] Phone [phone] Care Team Providers Care Assisted Living Coordinator Name Role Phone Adolph Aldridge MD Primary Care Provider [phone] Reason for Visit * Reason Onset Date Comments Other 05/01/2024 AVF Encounter Details Date Type Department Care Team (Late st Contact Info) Description 05/01/2024 Telephone Vascular Surg [facility] [address] [place] [address] Carmelo Ramos MD [address] [place] [address] Other (AVF) Allergies Active Allergy Reactions Criticality Noted Date Comments Amoxicillin Low 01/27/2021 Other reaction(s): VOMITING Cefaclor Rash Low 11/23/2011 Cephalosporins Rash Low 05/16/1999 documented as of this encounter (statuses as of 05/01/2024) Medications Medication Sig Dispensed Refills Start Date [...] 24 Tablet 03/14/2022 Active OneTouch Delica Plus [id number] ns:DM type 2 with diabetic peripheral neuropathy [...] the morning and at bedtime. Active PEG 8761-AHt-SgGtm-NaC l-NaSulf 236 GM Oral Solution Reconstituted Please [...] per day., Informant: Patient, Reported on 02/06/2024 DexSanTásti G7 SensorIndications: Type 2 diabetes mellitus with hemoglobin A1c goal of less than 7.0% ([facility]) Use to check sugars continuously. E 11.9 change every 10 days 3 Each 11 01/06/2024 Active hydrOXYzine HCl 25 MG Oral Tablet TAKE 1 TABLET BY MOUTH EVERY 6 HOURS NEEDED FOR ANXIETY 02/12/2024 Active Dexcom G7 Logistics Planning Manager Device USE DAILY TO CHECK BLOOD SUGARS [...] as of this encounter (statuses as of 05/01/2024) Active Problems Problem Noted Date Diagnosed Date [...] as of this encounter (statuses as of 05/01/2024) Resolved Problems Problem Noted Date Diagnosed Date [...] and PP sugars <120. Report levels to [facility] department weekly. 10. Advised patient that Glyburide, Metformin, and insulin may be safely used during for the control of blood sugar levels. Alexandra will begin her insulin therapy today. 11. Dietary consult to be done to instruct patient on appropriate nutrition and diet to aid in control of blood sugars. 12. Recommend urine culture each trimester. 13. Recommend [facility] ultrasound for limited anatomy at 12-14 [...] patient to repepat OB [facility] 03/19/2011 01/29/20 17 Overview: 03/19/2011 Needs enrolled in [facility] once MA active. Marva RN- Enrolled [...] as of this encounter (statuses as of 05/01/2024) Immunizations Name Administration Dates Next Due COVID-19 [...] encounter Miscellaneous Notes * Telephone Encounter - Marlin Stockton OSA [...] a follow up with Dr. Bloom at [facility] who explained to her that [...] you know. Thank you! Ary Cedillo RN [facility] [address] [place] [address] [address] [place] [address] documented in this encounter Plan of Treatment Upcoming Encounters Date Type Department Care Team (Late st Contact Info) Description 05/05/2024 11:20 AM EDT Office Visit [facility] [address] [place] [phone] Adolph Aldridge MD [address] [facility] [place] [id number] 05/12/2024 1:00 PM EDT [facility] [address] [facility] [place] [address] Ary Rowe MD [address] [place] [address] 09/01/2024 1:40 PM EST Office [facility] [address] [facility] [phone] Adolph Aldridge MD [address] [facility] [place] [id number] Scheduled Procedures Name Priority Associated Diagnoses Date/Ti [...] this encounter Medical Devices Implanted Type Area Workforce Development Specialist Device Identifier Shelf Expiration Date Model / Serial / Lot Stent Protege Gps [id number] - [id number] Implanted:Qty : 1 on 09/29/2020 by Carmelo Ramos MD at OR [facility] [place] [facility] Left: Chest [employer] : VASCULAR [id number] 09/20/2022 [id number] -40-80 / / [id number] Stent Viab [id number] - [id number] Implanted:Qty : 1 on 04/16/2023 by Carmelo Ramos MD at OR [facility] [place] [facility] Right: Subclavian [employer] [id number] 01/26/2026 [id number] / [id number] / [id number] documented as of this encounter Advance Directives [...] Power of Attor mamadou? No Care Teams Assisted Living Coordinator Relationship Specialty Start Date End Date Adolph Aldridge MD [address] [facility] [place] [address] PCP - General Family Medicine 10/21/18 documented as of this encounter
--- OUTSIDE RECORDS SUMMARY | 2024-05-05 22:42 | External Medical Summary | Summary of Care ---
Author Name Unknown Organization [facility] Address [address] [place] [address] Phone [phone] Care Team Providers Care Oracle Hyperion Consultant Name Role Phone Adolph Aldridge MD Primary Care Provider [phone] Encounter Details Date Type Department Care Team ([facility] st Contact Info) Description 05/04/2024 Population Health External Data Unspecified Department Allergies [...] 24 Tablet 03/14/2022 Active OneTouch Delica Plus Nqyxdl24FNmtfzbmmo ns:DM type 2 with diabetic peripheral neuropathy [...] the morning and at bedtime. Active PEG 6480-WAh-GyXzu-NaC l-NaSulf 236 GM Oral Solution Reconstituted Please [...] hemoglobin A1c goal of less than 7.0% ([facility]) Use to check sugars continuously. E 11.9 change every 10 days 3 Each 11 01/06/2024 Active hydrOXYzine HCl 25 MG Oral Tablet TAKE 1 TABLET BY MOUTH EVERY 6 HOURS NEEDED FOR ANXIETY 02/12/2024 Active Dexcom G7 Linux Consultant Device USE DAILY TO CHECK BLOOD SUGARS [...] and PP sugars <120. Report levels to [facility] department weekly. 10. Advised patient that Glyburide, Metformin, and insulin may be safely used during for the control of blood sugar levels. Alexandra will begin her insulin therapy today. 11. Dietary consult to be done to instruct patient on appropriate nutrition and diet to aid in control of blood sugars. 12. Recommend urine culture each trimester. 13. Recommend [facility] ultrasound for limited anatomy at 12-14 weeks, for full anatomy at 18-20 weeks, and for echocardiography at 22-24 weeks. 14. Start testing with twice weekly NST and weekly MATTHEW beginning at 32 weeks or earlier if any evidence of uncontrolled blood sugars, renal abnormalities, or HTN. 15. Recommend [facility] growth ultrasound every 4 weeks after [...] due to illness flu vaccine. 06/07/2011 Tami Rodriguez, ROSEY Growth scan at 27w: 1275g, which is [...] Description 05/05/2024 11:20 AM EDT Office Visit [place] [address] [place] [facility] [place] [phone] Adolph Aldridge MD [address] [place] [address] 05/12/2024 1:00 PM EDT Office Visit Orthopaedics [facility] [address] [facility] [place] [address] Ary Rowe MD [address] [facility] [place] [address] 09/01/2024 1:40 PM EST Office Visit [place] [address] [place] [facility] [place] [phone] Adolph Aldridge MD [address] [place], [place] [phone] Scheduled Procedures Name Priority Associated Diagnoses Date/Ti [...] this encounter Medical Devices Implanted Type Area Clinical Social Worker Device Identifier Shelf Expiration Date Model / Serial / Lot Stent Protege Gps [id number] - [id number] Implanted:Qty : 1 on 09/29/2020 by Carmelo Ramos MD at OR [facility] [place] Left: Chest [employer] : VASCULAR [id number] 09/20/2022 [id number] -40-80 / / [id number] Stent Viab [id number] - [id number] Implanted:Qty : 1 on 04/16/2023 by Carmelo Ramos MD at OR [facility] Right: Subclavian [employer] [id number] 01/26/2026 [id number] / [id number] / [id number] documented as of this encounter Advance Directives [...] Power of Attor mamadou? No Care Teams Oracle Hyperion Consultant Relationship Specialty Start Date End Date Adolph Aldridge MD [address] [place] [address] PCP - General Family Medicine 10/21/18 documented as of this encounter
--- OUTSIDE RECORDS SUMMARY | 2024-05-05 22:42 | External Medical Summary | Summary of Care ---
Author Name Unknown Organization [facility] Address [address] [place] [address] Phone [phone] Care Team Providers Care Orthodontist Name Role Phone Adolph Aldridge MD Primary Care Provider [phone] Reason for Visit * Reason Onset Date Comments Other 05/01/2024 AVF Encounter Details Date Type Department Care Team (Late st Contact Info) Description 05/01/2024 Telephone Vascular Surg [facility] [address] [place] [address] Carmelo Ramos MD [address] [place] [address] Other (AVF) Allergies Active Allergy [...] 24 Tablet 03/14/2022 Active OneTouch Delica Plus Koxwes81JSwboweeto ns:DM type 2 with diabetic peripheral neuropathy [...] the morning and at bedtime. Active PEG 8800-NQd-DfWod-NaC l-NaSulf 236 GM Oral Solution Reconstituted Please [...] per day., Informant: Patient, Reported on 02/06/2024 DexCere[employer] G7 SensorIndications: Type 2 diabetes mellitus with hemoglobin A1c goal of less than 7.0% ([facility]) Use to check sugars continuously. E 11.9 change every 10 days 3 Each 11 01/06/2024 Active hydrOXYzine HCl 25 MG Oral Tablet TAKE 1 TABLET BY MOUTH EVERY 6 HOURS NEEDED FOR ANXIETY 02/12/2024 Active Dexcom G7 Technical Delivery Manager Device USE DAILY TO CHECK BLOOD [...] and PP sugars <120. Report levels to [facility] department weekly. 10. Advised patient that Glyburide, Metformin, and insulin may be safely used during for the control of blood sugar levels. Alexandra will begin her insulin therapy today. 11. Dietary consult to be done to instruct patient on appropriate nutrition and diet to aid in control of blood sugars. 12. Recommend urine culture each trimester. 13. Recommend [facility] ultrasound for limited anatomy at 12-14 weeks, [...] Marva CURRIE, contaminated patient to repepat OB [facility] 03/19/2011 01/29/20 17 Overview: 03/19/2011 Needs enrolled in [facility] once MA active. Marva RN- Enrolled 03/27/2011 [...] Encounter - Anthony Beckett PA-C - 05/04/2024 10:20 AM EDT Marlin/Suresh- Please look at surgeon schedules (except Norma) and call pt to set up RIGHT arm fistulagram on non-HD day, which would be a Saturday/ Please instruct pt to be NPO after MN Take bath shower evening before surgery and morning of surgery with Dial soap Take AM meds with sip H2O No hold on AM meds Thank you * Telephone Encounter - Anthony Beckett PA-C - 05/04/2024 9:00 AM EDT Please set pt up for return visit @ s with Dr. Bloom, next open spot, no [...] a follow up with Dr. Bloom at [facility] who explained to her that this would [...] am letting you know. Thank you! Ary Cedillo, [place] [facility] [address] [place] [address] documented in this encounter Plan of Treatment Upcoming Encounters Date Type Department Care Team (Late st Contact Info) Description 05/05/2024 11:20 AM EDT Office Visit [facility] Neri Pickard [address] [place] [phone] Adolph Aldridge MD [address] [facility] [place] [address] 05/12/2024 1:00 PM EDT Office Visit Orthopaedics [facility] [address] [place] [address] Ary Rowe MD [address] [place] [address] 09/01/2024 1:40 PM EST Office Visit [facility] [address] [place] [phone] Adolph Aldridge MD [address] [place] [address] Scheduled Procedures Name Priority Associated Diagnoses Date/Ti [...] Depression Monitoring 02/17/2025 02/18/2024 Colonoscopy 2030 03/29/2023, 0 01/2018, 10/01/2017 Pneumococcal Vaccine: Pediatrics (0 to [...] this encounter Medical Devices Implanted Type Area Environmental Safety Specialist Device Identifier Shelf Expiration Date Model / Serial / Lot Stent Protege Gps [id number] - [id number] Implanted:Qty : 1 on 09/29/2020 by Carmelo Ramos MD at OR [facility] Left: Chest [employer] : VASCULAR [id number] 09/20/2022 [id number] -40-80 / / [id number] Stent Viab [id number] - [id number] Implanted:Qty : 1 on 04/16/2023 by Carmelo Ramos MD at OR [facility] Right: Subclavian [employer] [id number] 01/26/2026 [id number] / [id number] / [id number] documented as of this encounter Advance Directives [...] Power of Attor mamadou? No Care Teams Orthodontist Relationship Specialty Start Date End Date Adolph Aldridge MD [address] [place] [address] PCP - General Family Medicine 10/21/18 documented as of this encounter
--- OUTSIDE RECORDS SUMMARY | 2024-05-05 22:42 | External Medical Summary | Summary of Care ---
Author Name Unknown Organization [facility] Address [address] [place] [address] Phone [phone] Care Team Providers Care Spear Fisher Name Role Phone Adolph Aldridge MD Primary Care Provider [phone] Reason for Referral * Evaluate & Treat - Unlimited Visits (Within 30 days (routine)) - Authorized Specialty Diagnoses / Procedures Referred By Contac t Referred To Contact Obstetrics/Gynecology / Gynecology Obstetrics Diagnoses Encounter for surveillance of contraceptives, unspecified contraceptive Adolph Aldridge MD [address] [place] [address] Referral ID Status Reason Start Date Expiration Date Visits Requested Visits Authorized [id number] Authorized Specialty Services Required 04/28/2024 999 [id number] Question Answer Referral Priority Within 30 days (routine) What condition is the patient being seen for? control What type of control is desired? Depo Where should this appointment be scheduled? [facility] Comments BP 116/76 | Pulse 104 | Temp 36.4 C (97.5 F) (Tympanic) | Resp 16 | Ht 1.676 m (5' 6") | Wt 81.3 kg (179 lb 3.2 oz) * Precert (Within 10 days (routine)) - Pending Review Specialty Diagnoses / Procedures Referred By Contac t Referred To Contact Radiology Diagnoses Mediastinal lymphadenopathy Procedures CT CHEST WO CONTRAST Adolph Aldridge MD [address] [place] [address] Referral ID Status Reason Start Date Expiration Date V isits Requested Visits Authorized [id number] Pending Review 04/28/2024 999 999 * Ancillary Services (Within 30 days (routine)) - Authorized Specialty Diagnoses / Procedures Referred By Adarsh t Referred To Contact Cardiovascular Medicine Diagnoses Other chest pain Adolph Aldridge MD [address] [place] [address] Referral ID Status Reason Start Date Expiration Date Visits Requested Visits Authorized [id number] Authorized Ancillary Services Required 04/28/2024 999 999 Question Answer Referral Priority Within 30 days (routine) Where should this appointment be scheduled? [facility] What is the preferred location to have this test performed? [facility] How soon should this test be performed? 1 Month or Less Comments Not for rest Echo. Reason for Study (chest pain or anginal equivalent): Chest pain, no CAD: discordant clinical and imaging data Select the preferred exam: Stress Nuclear Adenosine: ischemia, viability, EF and wall motion Does the patient have a current EKG? Yes Does the patient have a prior history of a stent or bypass? No Lab Results Component Value Date/Time CREATININE - [facility]* 10.2 (H) 09/01/2023 04:46 AM CREATININE - GEISIN* 15.0 (H) 08/02/2019 04:41 AM CREATININE CLEARANC* 49 (L) 04/18/2011 09:44 AM CREATININE, 24 HOUR* 1.296 04/18/2011 09:44 AM CREATININE, RANDOM * 47 11/09/2015 10:17 AM CREATININE-OUTSIDE * 7.52 (H) 01/27/2021 12:00 AM Lab Results Component Value Date/Time BUN - [facility] 58 (H) 09/01/2023 04:46 AM BUN - [facility] 71 (H) 08/02/2019 04:41 AM Reason for Visit * Reason Comments Hospital Follow-Up Patient is here toda y for a hospital follow up. Patient states her hemorrhoids are not getting any better.Patient states she is still having Chest pains off and on. Encounter Details Date Type Department Care Team (Late st Contact Info) Description 04/28/2024 11:20 AM EDT Office Visit [facility] [address] [facility] [place] [address] Adolph Aldridge MD [address] [place] [address] Encounter for surveillance of contraceptives, unspecified contraceptive*; Screening for cervical cancer; Hemorrhoids, external without complications; Mediastinal lymphadenopathy; Other chest pain; DM type 2 with diabetic peripheral neuropathy (HCC) Allergies Active Allergy Reactions Criticality Noted Date [...] 0.8 MG Oral Tablet 1 Tab. 0 Active Compressor NebulizerIndicatio ns:Mild intermittent asthma with [...] 4 times a day E11.9 1 Kit 1 Active Dulera 200-5 MCG/ACT Inhalation Aerosol (Mometasone Furo-Formoterol Fum) Inhale by mouth 2 Puffs in the morning AND 2 Puffs before bedtime. 39 g 3 2 Active Ondansetron HCl 4 MG Oral TabletIndications: Nausea without vomiting Take by mouth 1 Tablet every 6 hours as needed for Nausea. 24 Tablet 2 Active OneTouch Delica Plus [id number] ns:DM type 2 with diabetic peripheral neuropathy (HCC),Type 2 diabetes mellitus with hemoglobin A1c goal of less than 7.0% (HCC) use 1 LANCET to TEST BLOOD SUGAR four times a day. DX E11.9 400 Each 3 2 Active OneTouch Verio In Vitro Strip (Glucose Blood)Indications: DM type 1 with diabetic peripheral neuropathy (HCC) Use up to 4 times a day E11.9 100 Strip 11 2 Active Fluticasone Propionate 50 MCG/ACT Nasal SuspensionIndicati ons:Chronic rhinitis Administer into each nostril 2 Sprays in the morning. 16 g 2 2 Active Additional Information Patient not taking.Informant: Patient, [...] on box 1 Each 3 3 Active Additional Information Patient not taking.Informant: Patient, Reported on 02/06/2024 Carvedilol 12.5 MG Oral Tablet (Coreg) Take 0.5 Tablets by mouth in the morning and 0.5 Tablets before bedtime. Active LORazepam 0.5 MG Oral Tablet (Ativan)Indication s:Panic attack TAKE 1 TABLET BY MOUTH EVERY 8 HOURS NEEDED FOR PANIC ATTACKS AND BEFORE DIALYSIS Strength: 0.5 mg 20 Tablet 3 Active carBAMazepine ER 200 MG Oral Tablet Extended Release 12 Hour (Tegretol-Xr) Take 1 Tablet by mouth 2 times a day in the morning and at bedtime. Active PEG 7492-[id number]-FeSio-NaC l-NaSulf 236 GM Oral Solution Reconstituted Please take according to Colonoscopy prep instructions. 4000 mL 3 Active Additional Information Patient not taking.Informant: Patient, Reported on 02/19/2024 Cinacalcet HCl 90 MG Oral Tablet (Sensipar) Take 1 tablet by mouth daily with dinner 30 Tablet 11 3 Active traMADol HCl 50 MG Oral Tablet (Ultram) Take 1 Tablet by mouth 2 times a day as needed for Pain, Severe for up to 10 doses. 10 Tablet 4 Active Additional Information Patient not taking.Informant: Patient, Reported on 02/06/2024 Mirtazapine 7.5 MG Oral Tablet (Remeron) Take 1 Tablet by mouth at bedtime. Active Benzonatate 100 MG Oral CapsuleIndications :Chronic cough Take 2 Capsules by mouth 3 times a day as needed for Cough. 30 Capsule 1 4 Active Albuterol Sulfate HFA 108 (90 Base) MCG/ACT Inhalation Aerosol SolutionIndication s:Chronic cough,Upper respiratory tract infection, unspecified type Inhale 2 Puffs by mouth every 4 hours as needed for Wheezing. 18 g 6 4 Active buPROPion HCl ER (XL) 150 MG Oral Tablet Extended Release 24 Hour (Wellbutrin XL)Indications:Dep ression with anxiety Take 1 Tablet by mouth in the morning. Increase to 1 tab twice daily after 2 weeks. 60 Tablet 5 4 Active Additional Information Patient taking differently:150 mg Oral Daily(AM),Pt only taking 1 per day., Informant: Patient, Reported on 02/06/2024 Dexcom G7 SensorIndications: Type 2 diabetes mellitus with hemoglobin A1c goal of less than 7.0% ([facility]) Use to check sugars continuously. E 11.9 change every 10 days 3 Each 4 Active hydrOXYzine HCl 25 MG Oral Tablet TAKE 1 TABLET BY MOUTH EVERY 6 HOURS NEEDED FOR ANXIETY 4 Active Dexcom G7 Magnet Maker Device USE DAILY TO CHECK BLOOD SUGARS CONTINUOUSLY (DX CODE E11.9) 4 Active Varenicline Tartrate 1 MG Oral TabletIndications: Tobacco use Take 1 Tablet by mouth in the morning and 1 Tablet before bedtime. As directed on box.. 60 Tablet 3 4 Active Varenicline Tartrate (Starter) 0.5 MG X 11 & 1 MG X 42 Tablet Therapy PackIndications:To bacco use Follow directions to get started on Chantix 53 Each 4 Active medroxyPROGESTERon e Acetate 150 MG/ML Intramuscular Suspension Prefilled Syringe (Depo-Provera) INJECT 150 MG INTRAMUSCULARLY (INTO A LARGE MUSCLE) ONCE EVERY 3 MONTHS 1 mL 4 Active Lidocaine 5 % External Ointment 4 Active Proctofoam HC 1-1 % External Foam 4 Active Gabapentin 400 MG Oral Capsule (Neurontin)Indicat ions:DM type 2 with diabetic peripheral neuropathy (HCC) Take 1 Capsule by mouth in the morning and 1 Capsule at noon and 1 Capsule before bedtime. 270 Capsule 3 4 Active Gabapentin 400 MG Oral Capsule (Neurontin)Indicat ions:DM type 2 with diabetic peripheral neuropathy (HCC) Take 1 Capsule by mouth in the morning and 1 Capsule at noon and 1 Capsule before bedtime. 270 Capsule 3 4 04/28/20 24 Discontinu ed(Refill) documented as of this encounter (statuses as [...] and PP sugars <120. Report levels to [facility] department weekly. 10. Advised patient that Glyburide, Metformin, and insulin may be safely used during for the control of blood sugar levels. Alexandra will begin her insulin therapy today. 11. Dietary consult to be done to instruct patient on appropriate nutrition and diet to aid in control of blood sugars. 12. Recommend urine culture each trimester. 13. Recommend [facility] ultrasound for limited anatomy at 12-14 weeks, for full anatomy at 18-20 weeks, and for echocardiography at 22-24 weeks. 14. Start testing with twice weekly NST and weekly MATTHEW beginning at 32 weeks or earlier if any evidence of uncontrolled blood sugars, renal abnormalities, or HTN. 15. Recommend [facility] growth ultrasound every 4 weeks after [...] CURRIE, contaminated patient to repepat OB Orville Hairston 03/19/2011 01/29/20 17 Overview: 03/19/2011 Needs enrolled in [facility] once MA active. Marva RN- Enrolled 03/27/2011 Marva CURRIE Patient declines due to illness flu vaccine. 06/07/2011 Tami Rodriugez RN Growth scan at 27w: 1275g, which [...] 0 12/2010 - 12/2021 Smokeless Tobacco: Never Tobacco Cessation:Counseling Given: Not Answered Comments:02/19/2024 smokes 1 pack per day, declined [...] Sign Reading Time Taken Comments Blood Pressure 116/76 04/28/2024 10:54 AM EDT Pulse 104 04/28/2024 10:54 AM EDT Temperature 36.4 C (97.5 F) 04/28/2024 10:54 AM E DT Respiratory Rate 16 04/28/2024 10:54 AM EDT Oxygen Saturation 96% 04/28/2024 10:54 AM EDT Inhaled Oxygen Concentration - - Weight 81.3 kg (179 lb 3.2 oz) 04/28/2024 10:54 AM EDT Height 167.6 cm (5' 6") 04/28/2024 10:54 AM EDT Body Mass Index 28.92 04/28/2024 10:54 AM EDT documented in this encounter Functional Status Functional [...] as of this encounter Progress Notes * Adolph Aldridge MD - 04/28/2024 11:03 AM EDT Subjective: Alexandra Arguello is a 38 year old female. Chief Complaint Patient presents with Hospital Follow-Up Patient is here today for a hospital follow up. Patient states her hemorrhoids are not getting any better. Patient states she is still having Chest pains off and on. 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 She is on Provera. Patient Active Problem List Diagnosis Type 2 diabetes mellitus with hemoglobin A1c goal of less than 7.0% ([facility]) Need for prophylactic immunotherapy Anemia Transplant rejection Chronic renal allograft nephropathy Depression with anxiety ESRD (end stage renal disease) on dialysis (HCC) HTN, goal below 140/90 Chest pain Migraine with aura and without status migrainosus, not intractable DM type 2 with diabetic peripheral neuropathy (HCC) Mass of finger, right Bipolar disorder, in partial remission, most recent episode depressed (HCC) DM kidney disease (HCC) Malfunction of arteriovenous dialysis fistula (HCC) 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) Syncope and collapse Restless legs syndrome Gastro-esophageal reflux disease without esophagitis Hypertensive chronic kidney disease with stage 5 chronic kidney disease or end stage renal disease (HCC) Type 2 diabetes mellitus with diabetic chronic kidney disease (HCC) Major depressive disorder, recurrent, in partial remission ([facility]) Cyst of ovary Cardiomegaly Admission for dialysis ([facility]) Closed nondisplaced fracture of pelvis with routine [...] as needed for Wheezing. 150 mL 3 BaremetricsTouch Verio w/Device Kit Use up to 4 times a day E11.9 1 Kit 0 Dulera 200-5 MCG/ACT Inhalation Aerosol (Mometasone Furo-Formoterol Fum) Inhale by mouth 2 Puffs inthe morning AND 2 Puffs before bedtime. 39 g 3 Ondansetron HCl 4 MG Oral Tablet Take by mouth 1 Tablet every 6 hours as needed for Nausea. 24 Tablet 0 BaremetricsTouch Delica Plus [id number] use 1 LANCET to TEST BLOOD SUGAR four times a day. DX E11.9 400 Each3 BaremetricsTouch Verio In Vitro Strip (Glucose Blood) Use up to 4 times a day E11.9 100 Strip 11 Omeprazole 20 MG Oral Capsule Delayed Release (PriLOSEC) Take 1 Capsule by mouth in the morning. 1 hour before the first meal of the day. 90 Capsule 3 LORazepam 0.5 MG Oral Tablet (Ativan) TAKE 1 TABLET BY MOUTH EVERY 8 HOURS NEEDED FOR PANIC ATTACKS AND BEFORE DIALYSIS Strength: 0.5 mg 20 Tablet 0 carBAMazepine ER 200 MG Oral Tablet Extended Release 12 Hour (Tegretol-Xr) Take 1 Tablet by mouth 2times a day in the morning and at bedtime. Cinacalcet HCl 90 MG Oral Tablet (Sensipar) Take 1 tablet by mouth daily with dinner 30 Tablet 11 Mirtazapine 7.5 MG Oral Tablet (Remeron) Take 1 Tablet by mouth at bedtime. Albuterol Sulfate HFA 108 (90 Base) MCG/ACT [...] 6 HOURS NEEDED FOR ANXIETY Dexcom G7 Magnet Maker Device USE DAILY TO CHECK BLOOD SUGARS [...] 1 Capsule before bedtime. 270 Capsule 3 Fluticasone Propionate 50 MCG/ACT Nasal Suspension Administer into each nostril 2 Sprays in the morning. (Patient not taking: Reported on 02/06/2024) 16 g 2 Varenicline Tartrate 0.5 MG X 11 & 1 MG X 42 Oral Tablet Therapy Pack Take as directed on box (Patient not taking: Reported on 02/06/2024) 1 Each 3 Carvedilol 12.5 MG Oral Tablet (Coreg) Take 0.5 Tablets by mouth in the morning and 0.5 Tablets before bedtime. (Patient not taking: Reported on 04/23/2024) PEG 7482-MPi-UgHsw-NaCl-NaSulf 236 GM Oral Solution Reconstituted Please take according to Colonoscopy prep instructions. (Patient not taking: Reported on 02/19/2024) 4000 mL 0 traMADol HCl 50 MG Oral Tablet (Ultram) Take 1 Tablet by mouth 2 times a day as needed for Pain, Severe for up to 10 doses. (Patient not taking: Reported on 10/01/2023) 10 Tablet 0 Benzonatate 100 MG Oral Capsule Take 2 Capsules by mouth 3 times a day as needed for Cough. 30 Capsule 1 No current facility-administered medications for this visit. Review of patient's allergies indicates: Allergen Reactions Amoxicillin Other reaction(s): VOMITING Cefaclor Rash Cephalosporins Rash Objective: BP 116/76 | Pulse 104 | Temp 36.4 C (97.5 F) (Tympanic) | Resp 16 | Ht 1.676 m (5' 6") | Wt 81.3 kg (179 lb 3.2 oz) | SpO2 96% | BMI 28.92 kg/m | BSA 1.95 m Physical Exam: CONST: alert, pleasant, no acute distress Eyes - PERRLA, EOM'I OROPHARYNX: clear, no swelling or erythema, moist CV: regular rate and rhythm, no murmur CHEST: Few scattered bibasilar expiratory wheezes ABD: soft, non tender, non distended, no masses or hepatosplenomegaly EXT: no edema, no joint swelling or deformities, NEURO: AAOx3, no gross focal deficits, cerebellar signs normal, affect appropriate MENTAL STATUS: no evidence of thought disorder, no delusional thought, no evidence of paranoia, thought is non-tangential. SKIN: no rash or significant lesions Rectal: I did not appreciate any external hemorrhoids at this time. I did not trouble her with Um digital rectal exam. 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 She has dealt with [facility] director title in the past and was started on her Depo-Proveraby Gynecology. Screening for cervical cancer-see above Hemorrhoids, external without complications-continue the lidocaine 5% gel 4 times a day as needed. She can not do Sitz baths because she can not get down sit in the bathtub because of the pelvic fracture. I told her when she showers that she should run the water over her back in. Refer to colorectal surgery as see if they have anything to offer Mediastinal lymphadenopathy - CT CHEST WO CONTRAST just-in 3-4 months time Recurrent chest pain-CAD order for stress testing. I indicated a nuclear adenosine stress test but ultimately this will be up to Cardiology to choose. DM type 2 with diabetic peripheral neuropathy (HCC) - Gabapentin 400 MG Oral Capsule (Neurontin); Take 1 Capsule by mouth in the morning and 1 Capsule at noon and 1 Capsule before bedtime. History diabetes although she now has a totally normal hemoglobin A1c of 5.6 on no diabetic medication. The DEXA com 7 she feels has been very helpful just letting her know where her blood sugars are. It sounds like she gets a pretty high postprandial sugar into the 200s but quickly it normalizes. End-stage renal failure-continue follow with dialysis in this regard Dr. Esteban. Follow-up: Return in about 4 months (around 08/28/2024). | Check-out note: [facility] Adolph Aldridge MD documented in this encounter Nursing Notes * Carrie Heath LPN - 04/28/2024 10:58 AM EDT The patient has been properly identified by confirmation of name and date of . Chief Complaint Patient presents with Hospital Follow-Up Patient is here today for a hospital follow up. Patient states her hemorrhoids are not getting any better. Patient states she is still having Chest pains off and on. documented in this encounter Plan of Treatment Upcoming Encounters Date Type Department Care Team (Late st Contact Info) Description 05/05/2024 11:20 AM EDT [facility] [address] [facility] [place] [id number] [facility] [address] [facility] [address] 05/12/2024 1:00 PM EDT Office Visit [facility] [address] [place] [address] Ary Rowe MD [address] [place] [address] 09/01/2024 1:40 PM EST Office Visit [facility] [address] [place] [address] Adolph Aldridge MD [address] [place] [address] Scheduled Orders Name Type Priority Associated Diagnoses Orde r Schedule CT CHEST WO CONTRAST Medical Imaging Routine Mediastinal lymphadenopathy Ordered: 04/28/2024 Scheduled Procedures Name Priority Associated Diagnoses Date/Ti me COLONOSCOPY FLEXIBLE PROXIMA L DIAGNOSTIC Recall Iron deficiency anemia, unspecified iron deficiency anemia type Rectal bleeding Scheduled Referrals Name Type Priority Associated Diagnoses Orde r Schedule CAD IMAGING REFERRAL OP Referral Within 30 days (routine) Other chest pain Ordered: 04/28/2024 PROFESSOR OF THEATER REFERRAL OP Referral Within 30 days (routine) Encounter for surveillance of contraceptives, unspecified contraceptive Ordered: 04/28/2024 Health Maintenance Due Date Last Done Comments [...] this encounter Medical Devices Implanted Type Area Edge Blacker Device Identifier Shelf Expiration Date Model / Serial / Lot Stent Protege Gps [id number] - [id number] Implanted:Qty : 1 on 09/29/2020 by Carmelo Ramos MD at [facility] Left: Chest [employer] : VASCULAR [id number] 09/20/2022 [id number] / / [id number] Stent Viab [id number] - [id number] Implanted:Qty : 1 on 04/16/2023 by Carmelo Ramos MD at [facility] [place] [facility] Right: Subclavian [employer] [id number] 01/26/2026 [id number] / [id number] / [id number] documented as of this encounter Visit Diagnoses Diagnosis Encounter for surveillance of contraceptives, unspecified contraceptive- Primary Screening for cervical cancer Screening for malignant neoplasm of the cervix Hemorrhoids, external without complications External hemorrhoids without mention of complication Mediastinal lymphadenopathy Enlargement of lymph nodes Other chest pain DM type 2 with diabetic peripheral neuropathy (HCC) Type II or unspecified type diabetes mellitus with neurological manifestations, not stated as uncontrolled documented in this encounter Advance Directives * [...] Power of Attor mamadou? No Care Teams Spear Fisher Relationship Specialty Start Date End Date Adolph Aldridge MD [address] [place] [address] PCP - General Family Medicine 10/21/18 documented as of this encounter
--- OUTSIDE RECORDS SUMMARY | 2024-05-05 22:42 | External Medical Summary | Summary of Care ---
Author Name Unknown Organization [facility] Address [address] [place] [address] Phone [phone] Care Team Providers Care Environmental Engineering Professor Name Role Phone Adolph Aldridge MD Primary Care Provider [phone] Reason for Visit * Reason Onset Date Comments Other 05/01/2024 AVF Encounter Details Date Type Department Care Team (Late st Contact Info) Description 05/01/2024 Telephone Vascular Surg [facility] [address] [place] [address] Carmleo Ramos MD [address] [place] [address] Other (AVF) Allergies Active Allergy [...] 24 Tablet 03/14/2022 Active OneTouch Delica Plus [id number] ns:DM type 2 with diabetic peripheral neuropathy [...] the morning and at bedtime. Active PEG 4017-NNa-PwJoi-NaC l-NaSulf 236 GM Oral Solution Reconstituted Please [...] per day., Informant: Patient, Reported on 02/06/2024 DexHerBabyShower G7 SensorIndications: Type 2 diabetes mellitus with hemoglobin A1c goal of less than 7.0% ([facility]) Use to check sugars continuously. E 11.9 change every 10 days 3 Each 11 01/06/2024 Active hydrOXYzine HCl 25 MG Oral Tablet TAKE 1 TABLET BY MOUTH EVERY 6 HOURS NEEDED FOR ANXIETY 02/12/2024 Active Dexcom G7 Horizontal Resaw Operator Device USE DAILY TO CHECK BLOOD SUGARS [...] and PP sugars <120. Report levels to [facility] department weekly. 10. Advised patient that Glyburide, Metformin, and insulin may be safely used during for the control of blood sugar levels. Alexandra will begin her insulin therapy today. 11. Dietary consult to be done to instruct patient on appropriate nutrition and diet to aid in control of blood sugars. 12. Recommend urine culture each trimester. 13. Recommend [facility] ultrasound for limited anatomy at 12-14 [...] Marva CURRIE, contaminated patient to repepat OB [facility] 03/19/2011 01/29/20 17 Overview: 03/19/2011 Needs enrolled in [facility] once MA active. Marva RN- Enrolled [...] Telephone Encounter - Marlin Stockton OSA - 05/04/2024 12:56 PM EDT LVMM. Would like to offer this with Dr. Santiago * Telephone Encounter - Anthony Beckett PA-C [...] a follow up with Dr. Bloom at [facility] who explained to her that this [...] you know. Thank you! Ary Cedillo, ROSEY [facility] [address] [place] [address] [address] [place] [id number] documented in this encounter Plan of Treatment Upcoming Encounters Date Type Department Care Team (Late st Contact Info) Description 05/05/2024 11:20 AM EDT Office Visit [place] [address] [facility] [place] [place] [phone] Adolph Aldridge MD [address] [place] [address] 05/12/2024 1:00 PM EDT Office Visit [facility] [address] [place] [address] Ary Rowe MD [address] [place] [address] 09/01/2024 1:40 PM EST [facility] [address] [facility] [address] Adolph Aldridge MD [address] [place] [address] Scheduled Procedures Name Priority Associated Diagnoses Date/Ti [...] Depression Monitoring 02/17/2025 02/18/2024 Colonoscopy 2030 03/29/2023, 02/01/2018, 10/01/2017 Pneumococcal Vaccine: Pediatrics (0 to 5 [...] this encounter Medical Devices Implanted Type Area Assembly Riveter Device Identifier Shelf Expiration Date Model / Serial / Lot Stent Protege Gps [id number] - [id number] Implanted:Qty : 1 on 09/29/2020 by Carmelo Ramos MD at OR [facility] Left: Chest [employer] : VASCULAR [id number] 09/20/2022 [id number] / / [id number] Stent Viab [id number] - [id number] Implanted:Qty : 1 on 04/16/2023 by Carmelo Ramos MD at OR [facility] Right: Subclavian [employer] [id number] 01/26/2026 [id number] / [id number] / [id number] documented as of this encounter Advance Directives [...] Power of Attor mamadou? No Care Teams Environmental Engineering Professor Relationship Specialty Start Date End Date Adolph Aldridge MD [address] [place] [facility] [place] [address] PCP - General Family Medicine 10/21/18 documented as of this encounter
--- NOTE | 2024-05-05 23:41 | CT Scan Report ---
Exam(s): CT HEAD Without Contrast EXAM: CT Head Without Intravenous Contrast CLINICAL HISTORY: Reason for exam: Recent fall, syncope. TECHNIQUE: Axial computed tomography images of the head/brain without intravenous contrast. CTDI is 35.65 mGy and DLP is 1230.75 mGy-cm. Automated exposure control was utilized for the study. A dose lowering technique was utilized adhering to the principles of ALARA. COMPARISON: 12/28/17 FINDINGS: Brain: Unremarkable. No hemorrhage. No significant white matter disease. No edema. Ventricles: Unremarkable. No ventriculomegaly. Bones/joints: Unremarkable. No acute fracture. Soft tissues: Unremarkable. Sinuses: Unremarkable as visualized. No acute sinusitis. Mastoid air cells: Unremarkable as visualized. No mastoid effusion. IMPRESSION: Unremarkable head/brain CT. Electronically signed by: Juarez Shaffer MD 05/05/24 23:40 PM
--- NOTE | 2024-05-06 00:14 | CT Scan Report ---
Exam(s): CT ABDOMEN + PELVIS Without Contrast EXAM: CT Abdomen and Pelvis Without Intravenous Contrast CLINICAL HISTORY: Reason for exam: Abd pain, N/V. TECHNIQUE: Axial computed tomography images of the abdomen and pelvis without intravenous contrast. CTDI is 35.65 mGy and DLP is 1230.75 mGy-cm. Automated exposure control was utilized for the study. A dose lowering technique was utilized adhering to the principles of ALARA. COMPARISON: 03/25/24 FINDINGS: Lung bases: Heart is enlarged and there is mild interstitial edema in the lung bases. ABDOMEN: Liver: Unremarkable. Gallbladder and bile ducts: Post cholecystectomy, unchanged. No ductal dilation. Pancreas: Unremarkable. No ductal dilation. Spleen: Unremarkable. No splenomegaly. Adrenals: Unremarkable. No mass. Kidneys and ureters: Old, heavily calcified right iliac fossa renal allograft, unchanged from prior examination. Bilateral [place] kidneys are markedly atrophic with numerous small simple cysts, unchanged from prior examination, and these require no further follow-up. Stomach and bowel: Scattered diverticula in the colon. No diverticulitis. No obstruction. PELVIS: Appendix: No findings to suggest acute appendicitis. Bladder: Unremarkable. No stones. Reproductive: Unremarkable as visualized. ABDOMEN and PELVIS: Intraperitoneal space: Unremarkable. No free air. No significant fluid collection. Bones/joints: No dislocation. Old fracture deformities of bilateral pubic rami and posterior left 12th rib, unchanged from prior exam. Soft tissues: Unremarkable. Anterior abdominal wall scar tissue, unchanged. Vasculature: Unremarkable. No abdominal aortic aneurysm. Lymph nodes: Unremarkable. No enlarged lymph nodes. IMPRESSION: 1. Heart is enlarged and there is mild interstitial edema in the lung bases. 2. Otherwise, no acute abdominal or pelvic pathology is identified. 3. Atrophic [place] kidneys with old heavily calcified right renal allograft, other incidental findings, and remainder of examination unchanged from 03/25/24. Electronically signed by: Juarez Shaffer MD 05/06/24 00:14 AM
[2024-05-06 03:57] LABS: Hematocrit (blood only) 27.6 % (37.0-47.0); Hemoglobin 8.9 g/dl (12.0-16.0); Mean Corpuscular Hemoglobin 31.7 pg (25.0-34.0); Mean Corpuscular Hgb Conc 32.2 g/dL (32.0-36.0); Mean Corpuscular Volume 98.2 fL (80.0-100.0); Mean Platelet Volume 10.3 fL (9.4-12.4); Platelet Count 152 K/uL (130-400); RDW Standard Deviation 57.9 fL (36.4-46.3); Red Blood Count 2.81 M/uL (4.20-5.40)
[2024-05-06 04:13] LABS: Calcium 9.7 mg/dl (8.6-10.3); Magnesium 2.3 mg/dl (1.7-2.4); Potassium 5.1 mmol/L (3.5-5.1)
[2024-05-06 04:46] LABS: BUN Creatinine Ratio 7.6 (10-20); Creatinine Clr Calc Pharmacy 6.7 ml/min; Est GFR (African American) 4.1 ml/min; Est GFR (Non-African American) 3.5 ml/min; Phosphorus 8.3 mg/dl (2.5-4.9)
[2024-05-06 04:47] LABS: Troponin I High Sensitivity 133.2 pg/ml (0-14)
[2024-05-06 04:50] LABS: Folate (Folic Acid),Ser orPlas 18.71 ng/ml (>5.38)
[2024-05-06] MEDS: MAGNESIUM SULFATE / D5W 1 GM/100 ML BAG IV ONE (06:15)
[2024-05-06] MEDS: HYDROmorphone INJ 0.5 MG/0.5 ML SYR IV STA ×2 (06:15→21:06)
[2024-05-06] MEDS: CALCIUM ACETATE 667 MG CAP/TAB PO SCH (07:53)
[2024-05-06] MEDS: buPROPion XL 150 MG TABCR PO SCH (07:54)
[2024-05-06] MEDS: FLUTICASONE/VILANTEROL 200/25MCG 14 PUFFS/INHALER INH SCH (07:55)
[2024-05-06] MEDS: NEPHROCAPS PO SCH (07:56)
[2024-05-06] MEDS: hydrOXYzine HCl 25 MG TAB PO PRN (07:57)
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
[2024-05-06] MEDS: LORazepam 2 MG/1 ML VIAL IV PRN (08:55)
[2024-05-06] MEDS ORDERED: SODIUM CHLORIDE 0.9% 1,000 ML IV PRN (09:03)
--- NOTE | 2024-05-06 09:15 | Nephrology Consultation ---
Date of Consultation May 06, 2024 Assessment & Plan (1) ESRD on dialysis: missed her 05/04 treatment; marked volume overload and tolerated aggressive UF today to 5L -evaluate for tx needs daily but anticipate next tx on 05/08 -AVF w/o issues -continue lopressor -K ok at 5.1 and for HD Care coordinated w/ Dr Posada regarding plan /indications for and timing of cardiac cath relative to dialysis; we are in agreement as below (2) Chest pain: case d/w Dr Posada cardiology > diagnostic cardiac cath planned for AM; no need to time w/ dialysis given her anuria; note that she did have some L sided chest pain after HD; cardiology reevaluated her and mild repolarization ECG changes; started on heparin gtt; chest pain resolved, repeat ECT w/o concerning ff per cardiology (3) Bleeding external hemorrhoids: GI note reviewed > OP f/u recommended; avoid constipation/strains >>NB pt has 1.5L fluid limit; will need to balance ESRD FR w/ need for fiber/fluid intake >s/p pRBC 1 unit 05/06 and hgb 7.5 > 10.8 (some of low hgb was dilutional) History of Present Illness Reason for Consultation: ESRD on HD Requesting Physician: Dr Zendejas Attending Physician: Jaida Martinez MD History of Present Illness 38 y/o F whom I'm asked to see for dialysis needs/ ESRD was admitted last evening w/ multiple complaints after presenting with ongoing / recurrent retrosternal chest pain, worsening exertional dyspnea, ongoing rectal bleeding from hemorrhoids, RUQ abd pain. PMH includes DM2, HTN, GERD, hx of failed renal transplant, bipolar disorder/anxiety, restless leg syndrome; hx of acute thrombosis of brachiocephalic vein, s/p recent pelvic fracture causing her pain and somewhat limiting ambulation. Also s/p recent admission here for atypical chest pain concerning enough that OP nuclear stress testing was planned. She is frequently nonadherent to OP treatments d/t uncontrolled anxiety and/or other psychosocial issues. In particular this summer she has had extended housing insecurity. Today her TTE was concerning for new WMA in LAD territory > cardiology plans cardiac catheterization. pt tells me her chest pain has for now resolved though she does have some pelvic pain; she is completely anuric; no falls, no n/v, no worsening sob though had soem earlier; denies cough or edema. Allergies Allergy/AdvReac Type Severity Reaction Status Date / Time cefaclor Allergy Intermediate Rash Verified 04/29/24 00:26 Cephalosporins Allergy Intermediate Rash Verified 04/29/24 00:26 amoxicillin AdvReac Intermediate VOMITING Verified 04/29/24 00:26 clavulanic acid AdvReac Intermediate VOMITING Verified 04/29/24 00:26 Home Medications Medication Instructions Recorded Confirmed Type albuterol sulfate 2.5 mg/3 mL 2.5 mg inhalation Q4H PRN 06/08/23 05/05/24 History (0.083 %) solution for nebulization Shortness Of Breath Or Wheezing albuterol sulfate 90 mcg/actuation 2 puff inhalation Q6H PRN 06/08/23 05/05/24 History aerosol inhaler Shortness Of Breath Or Wheezing carbamazepine 200 mg tablet 200 mg PO AMPM 06/08/23 05/05/24 History gabapentin 400 mg capsule 400 mg PO TID 06/08/23 05/05/24 History hydroxyzine HCl 25 mg tablet 25 mg PO Q6H PRN Anxiety 06/08/23 05/05/24 History lorazepam 0.5 mg tablet 0.5 mg PO Q8 PRN Anxiety 06/08/23 05/05/24 History mometasone-formoterol HFA 200 2 puff inhalation BID 06/08/23 05/05/24 History mcg-5 mcg/actuation aerosol inhaler (Dulera) omeprazole 20 mg capsule,delayed 20 mg PO DAILYBB 06/08/23 05/05/24 History release vitamin B complex-vitamin C-folic 1 tab PO DAILY 06/08/23 05/05/24 History acid 0.8 mg tablet (Renal-Rika) benzonatate 100 mg capsule 200 mg PO TID PRN Cough 08/29/23 05/05/24 History calcium acetate(phosphat bind) 667 2,001 mg PO UD 08/29/23 05/05/24 History mg capsule cinacalcet 90 mg tablet 90 mg PO QDD 08/29/23 05/05/24 History medroxyprogesterone 150 mg/mL 150 mg IM UD 08/29/23 05/05/24 History intramuscular suspension (Depo-Provera) hydrocortisone 1 %-pramoxine 1 % 1 applic [place] QID PRN itching #10 04/11/24 05/05/24 Rx rectal foam (Proctofoam HC) grams lidocaine 5 % topical ointment 1 applic topical QID PRN pain #30 04/11/24 05/05/24 Rx grams bupropion HCl 150 mg 24 hr tablet, 150 mg PO QAM 04/17/24 05/05/24 History extended release mirtazapine 7.5 mg tablet 7.5 mg PO HS 04/17/24 05/05/24 History varenicline 0.5 mg tablet 0.5 mg PO DAILY #30 tabs 04/30/24 05/05/24 Rx Patient History Medical History Mood disorder Anxiety disorder, unspecified Abnormal chest xray Elevated lactic acid level Transaminitis Pneumonia Metabolic encephalopathy Acute non-ST elevation myocardial infarction (NSTEMI) Pulmonary edema Acute hyperkalemia Acute alteration in mental status Renal failure (ARF), acute on chronic Encephalopathy Facial fracture GI bleed ESRD (end stage renal disease) on dialysis Symptomatic anemia Tobacco abuse DVT prophylaxis Fistula right arm (currently being used) and left arm Dialysis patient SATURDAY/SAT/SATURDAY AT [facility] GERD (gastroesophageal reflux disease) Bipolar disorder Restless leg syndrome Peripheral neuropathy Asthma rare res inh use History of abnormal cervical Papanicolaou smear Elevated troponin Acute electrocardiogram changes Surgical History H/O eye surgery LASER SURGERY LEFT History of surgery left arm d/t clot in arm from AV fistula use @ [facility] History of surgery (~09/09/20) perm cath > since removed History of colonoscopy Kidney transplant recipient 2013 AT [facility] History of tooth extraction three TOOTH History of cardiac cath 2016 NO STENTS AVF (arteriovenous fistula) bilat upper arms ---currently using right for dialysis Family History Grandmother Hx of CABG Mother Diabetes Father Crohn's disease Grandfather (Maternal) Diabetes Uncle Diabetes Grandmother (Maternal) Family history of reaction to anesthesia difficulty waking with colonoscopy Social History Smoking Status: Former smoker Tobacco Type: Cigarettes Cigarettes Per Day: 20; Second Hand Exposure: No; Do You Dip or Chew Tobacco: No; Tobacco Cessation Education Requested by Patient: No Hx Alcohol Use: No Hx Substance Use: No Preferred Language: Hebrew Communication Ability: Effective Behavioral Geneticist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 Beliefs That Will Affect Care: None marital status: Single Current Living Situation: Alone Current Living Situation Comment: boyfriend recently kicked patient out of house pt reports How many Children do You have: 3 Other Information That Helps Us Care for You: No Feels Safe at Home: Yes Safety Concerns: Feels Safe At This Time Assistive Devices: Crutches Review of Systems 2 Review of Systems: All systems reviewed & are unremarkable except as noted in HPI & below Physical Exam 2 Constitutional: well developed, well nourished, cooperative and + lethargic (s/p medication; wakens fully); no acute distress Eyes: EOM intact bilaterally ENMT: Ears: no external ear abnormality Mouth: + dry oral mucous membranes Neck: no nuchal rigidity Respiratory: normal respiratory effort Auscultation: + diminished lung sounds Cardiovascular: Rate/Rhythm: regular rate and regular rhythm Heart Sounds: + murmur Extremities: + AV fistula; no edema Gastrointestinal (Abdomen): Inspection/Auscultation: normal bowel sounds P ercussion/Palpation: abdomen soft; abdomen nontender Musculoskeletal: Extremities: strength 5/5 throughout Skin: no rashes, warm and dry Neurologic: sandy, fluent speech, no tremor Psychiatric: Orientation: oriented x 3 Results & Data Vital Signs (Past 12 Hours) Vital Signs Temp Pulse Pulse Resp BP Pulse Ox O2 Del Method 05/06/24 08:08 102 H 05/06/24 07:30 36.7 C 89 20 132/84 95 Room Air 05/06/24 02:48 37.0 C 96 H 18 129/83 93 Room Air 05/06/24 01:33 101 H 05/05/24 22:34 37.2 C 102 H 18 128/81 96 Room Air 05/05/24 22:00 99 H Laboratory Results 05/06/24 17:30 05/06/24 03:17 (2) Chest pain Chest pain type: unspecified Qualified Code(s): R07.9 - Chest pain, unspecified
--- NOTE | 2024-05-06 09:45 | Gastrointestinal Consultation ---
Date of Consultation May 06, 2024 Assessment & Plan (1) Rectal bleedin38 year old female with history of T2DM, focal segmental glomerulosclerosis w/ end-stage renal disease on hemodialysis, history of acute thrombosis of brachiocephalic vein, hypertension, cardiomegaly, GERD, restless leg syndrome, history of chest pains, history of syncope and collapse, history of migraine, history of anemia, history of transplant rejection admitted with chest pain and rectal bleeding. She underwent EGD/Colonoscopy in 2022 for evaluation of rectal bleeding, colonoscopy was deemed a poor prep and a repeat is to be arranged through [facility]. She endorses intermittent hemorrhoidal bleeding which is intermittent severe and is to be evaluated for a hemorrhoidectomy. She tells me her current symptoms are unchanged. She is hemodynamically stable w. HGB 8.9 from baseline 9-10. - No GI contraindication to diet - OP evaluation for hemorrhoidectomy - No indication for inpatient colonoscopy - Please arrange outpatient colonoscopy with your established care team at [facility] - Conservatives measures - Trend HGB - Monitor and document GI output - Transfuse per primary service - Avoid constipation, straining - Good fiber intake, fluid intake I spent a total of 60 minutes on the date of service in review of patient's record, and previously obtained information in person and appropriate medical visit, discussion and education of plan, with patient and/or caregiver, placing orders for tests/referral/procedures as medically necessary and documentation of pertinent clinical information in patient's medical records for their visit today.Thank you for allowing us to participate in the care of this patient. Please call with any acute changes, questions or concerns. Please see addendum below with additional recommendation from my supervising physician. Supervising Physician Co-Signing Physician Notes Patient seen and examined. Case discussed with ANGÉLICA Barbosa. Patient with rectal bleed and acute on chronic anemia. She could very well have contribution from hemorrhoidal bleeding but at this level would investigate further with a colonoscopy. Unfortunately she has some new cardiac findings on Echo which will need to be addressed before any semi-elective endoscopic therapy. Would support and transfuse as needed until work up is able to be completed. History of Present Illness Reason for Consultation: rectal bleeding Requesting Physician: Juan Attending Physician: Jaida Martinez MD History of Present Illness 38 year old female with history of T2DM, focal segmental glomerulosclerosis w/ end-stage renal disease on hemodialysis, history of acute thrombosis of brachiocephalic vein, hypertension, cardiomegaly, GERD, restless leg syndrome, history of chest pains, history of syncope and collapse, history of migraine, history of anemia, history of transplant rejection, history of depression with anxiety, bipolar disorder admitted w/ CP and rectal bleeding. Pt was seen and evaluated, chart reviewed. She endorses unchanged rectal bleeding intermittent for years. She notes she was to have an evaluation for a hemorrhoidectomy but has yet to schedule this. She endorses trickling of BRB not related to straining or BMs. She does also have BRB in toilet bowl with BMs. No report of black or bloody stools - stool typically semi-formed/loose brown. [facility] and has had EGD/Colon evaluation in the past for her rectal bleeding. She was to have a repeat colonoscopy given a poor prep but this was yet to be arranged. EGD 2022: - Normal esophagus. - Gastritis. Biopsied. - Mucosal changes in the duodenum. - Normal second portion of the duodenum. Colonoscopy 2022: - Preparation of the colon was poor. - Stool in the entire examined colon. - No specimens collected. Allergies Allergy/AdvReac Type Severity Reaction Status Date / Time cefaclor Allergy Intermediate Rash Verified 04/29/24 00:26 Cephalosporins Allergy Intermediate Rash Verified 04/29/24 00:26 amoxicillin AdvReac Intermediate VOMITING Verified 04/29/24 00:26 clavulanic acid AdvReac Intermediate VOMITING Verified 04/29/24 00:26 Home Medications Medication Instructions Recorded Confirmed Type albuterol sulfate 2.5 mg/3 mL 2.5 mg inhalation Q4H PRN 06/08/23 05/05/24 Hi story (0.083 %) solution for nebulization Shortness Of Breath Or Wheezing albuterol sulfate 90 mcg/actuation 2 puff inhalation Q6H PRN 06/08/23 05/05/24 History aerosol inhaler Shortness Of Breath Or Wheezing carbamazepine 200 mg tablet 200 mg PO AMPM 06/08/23 05/05/24 History gabapentin 400 mg capsule 400 mg PO TID 06/08/23 05/05/24 History hydroxyzine HCl 25 mg tablet 25 mg PO Q6H PRN Anxiety 06/08/23 05/05/24 History lorazepam 0.5 mg tablet 0.5 mg PO Q8 PRN Anxiety 06/08/23 05/05/24 History mometasone-formoterol HFA 200 2 puff inhalation BID 06/08/23 05/05/24 History mcg-5 mcg/actuation aerosol inhaler (Dulera) omeprazole 20 mg capsule,delayed 20 mg PO DAILYBB 06/08/23 05/05/24 History release vitamin B complex-vitamin C-folic 1 tab PO DAILY 06/08/23 05/05/24 History acid 0.8 mg tablet (Renal-Rika) benzonatate 100 mg capsule 200 mg PO TID PRN Cough 08/29/23 05/05/24 History calcium acetate(phosphat bind) 667 2,001 mg PO UD 08/29/23 05/05/24 History mg capsule cinacalcet 90 mg tablet 90 mg PO QDD 08/29/23 05/05/24 History medroxyprogesterone 150 mg/mL 150 mg IM UD 08/29/23 05/05/24 History intramuscular suspension (Depo-Provera) hydrocortisone 1 %-pramoxine 1 % 1 applic [place] QID PRN itching #10 04/11/24 05/05/24 Rx rectal foam (Proctofoam HC) grams lidocaine 5 % topical ointment 1 applic topical QID PRN pain #30 04/11/24 05/05/24 Rx grams bupropion HCl 150 mg 24 hr tablet, 150 mg PO QAM 04/17/24 05/05/24 History extended release mirtazapine 7.5 mg tablet 7.5 mg PO HS 04/17/24 05/05/24 History varenicline 0.5 mg tablet 0.5 mg PO DAILY #30 tabs 04/30/24 05/05/24 Rx Patient History Medical History Mood disorder Anxiety disorder, unspecified Abnormal chest xray Elevated lactic acid level Transaminitis Pneumonia Metabolic encephalopathy Acute non-ST elevation myocardial infarction (NSTEMI) Pulmonary edema Acute hyperkalemia Acute alteration in mental status Renal failure (ARF), acute on chronic Encephalopathy Rectal bleeding reason for up coming colonoscopy Facial fracture GI bleed ESRD (end stage renal disease) on dialysis Symptomatic anemia Tobacco abuse DVT prophylaxis Fistula right arm (currently being used) and left arm Dialysis patient RUBEN/SAT/SATURDAY AT [facility] GERD (gastroesophageal reflux disease) Bipolar disorder Restless leg syndrome Peripheral neuropathy Asthma rare res inh use History of abnormal cervical Papanicolaou smear Elevated troponin Acute electrocardiogram changes Surgical History H/O eye surgery LASER SURGERY LEFT History of surgery left arm d/t clot in arm from AV fistula use @ [facility] History of surgery (~09/09/20) perm cath > since removed History of colonoscopy Kidney transplant recipient 2013 AT [facility] History of tooth extraction three TOOTH History of cardiac cath 2016 NO STENTS AVF (arteriovenous fistula) bilat upper arms ---currently using right for dialysis Family History Grandmother Hx of CABG Mother Diabetes Father Crohn's disease Grandfather (Maternal) Diabetes Uncle Diabetes Grandmother (Maternal) Family history of reaction to anesthesia difficulty waking with colonoscopy Social History Smoking Status: Former smoker Tobacco Type: Cigarettes Cigarettes Per Day: 20; Second Hand Exposure: No; Do You Dip or Chew Tobacco: No; Tobacco Cessation Education Requested by Patient: No Hx Alcohol Use: No Hx Substance Use: No Preferred Language: Danish Communication Ability: Effective Mold Stamper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 Beliefs That Will Affect Care: None marital status: Single Current Living Situation: Alone Current Living Situation Comment: boyfriend recently kicked patient out of house pt reports How many Children do You have: 3 Other Information That Helps Us Care for You: No Feels Safe at Home: Yes Safety Concerns: Feels Safe At This Time Assistive Devices: Crutches Review of Systems 2 Review of Systems: All systems reviewed & are unremarkable except as noted in HPI & below Physical Exam Constitutional: WD/WN, vitals as above Respiratory: normal respiratory effort, lungs clear to auscultation Cardiovascular: RRR, no murmur, no edema Gastrointestinal (Abdomen): normal bowel sounds, soft, nontender, no hepatosplenomegaly Skin: no rashes, warm and dry Results & Data Vital Signs (Past 12 Hours) Vital Signs Temp Pulse Pulse Resp BP Pulse Ox O2 Del Method 05/06/24 08:08 102 H 05/06/24 07:30 36.7 C 89 20 132/84 95 Room Air 05/06/24 02:48 37.0 C 96 H 18 129/83 93 Room Air 05/06/24 01:33 101 H 05/05/24 22:34 37.2 C 102 H 18 128/81 96 Room Air 05/05/24 22:00 99 H PG Care Time/CCT Total # of Minutes Spent Total Time Spent with Patient: Total time spent is greater than 50% in coordination of care (as documented) at patient's floor/unit and/or counseling patient: Coding Level of Care Code 98468 INT INP/OBS CARE 2/55MIN Diagnoses Rectal bleeding K62.5
[2024-05-06 10:08] LABS: Hematocrit (blood only) 22.4 % (37.0-47.0); Hemoglobin 7.5 g/dl (12.0-16.0)
[2024-05-06] MEDS: HEPARIN SOD (PORCINE) 1000 UNIT/ML IV ONE (10:13)
[2024-05-06] MEDS: HEPARIN SOD (PORCINE) 1000 UNIT/ML IV SCH (11:54)
[2024-05-06] MEDS: EPOETIN ALFA 20,000 UNITS/ML VIAL IV ONE (12:32)
[2024-05-06] MEDS ORDERED: SODIUM CHLORIDE 0.9% 250 ML IV PRN (12:51)
--- NOTE | 2024-05-06 13:01 | Electrocardiogram Report ---
Test Reason : Blood Pressure : */* mmHG Vent. Rate : 103 BPM Atrial Rate : 103 BPM P-R Int : 190 ms QRS Dur : 90 ms QT Int : 366 ms P-R-T Axes : 51 -24 15 degrees QTcB Int : 479 ms Sinus tachycardia Moderate voltage criteria for LVH, may be normal variant ( R in aVL ) Anterolateral infarct (cited on or before 21-Mar-2018) Abnormal ECG When compared with ECG of 30-Apr-2024 05:51, No significant change was found Confirmed by Dash Tejada ([id number]) on 05/06/2024 1:01:35 PM Referred By: REFERRED SELF Confirmed By: Dash Tejada
--- NOTE | 2024-05-06 13:02 | Hospitalist Progress Note ---
Date of Service May 06, 2024 Assessment & Plan (1) Rectal bleeding: (2) Abdominal pain: (3) Episode of syncope: (4) Chest pain: Plan Ms. Alexandra Arguello is a 38y/o F with PMHx of diet-controlled DM type II, ESRD on hemodialysis, history of acute thrombosis of brachiocephalic vein, HTN, cardiomegaly, GERD, restless leg syndrome, history of chest pains, history of syncope and collapse, history of migraine, history of anemia [baseline Hgb ~9- 11], history of transplant rejection, history of depression with anxiety, bipolar disorder and other problems listed below who presented to the ED via EMS for evaluation of multiple complaints. She was recently admitted 04/29/24-04/30/24 for evaluation of chest pain. Plan at that time was for her to undergo Lexiscan nuclear stress testing as outpatient Patient's course complicated by abnormal echo iso chest pain, cardiology co nsulted with plans for LHC. Patient also with anemia, hgb down to 7.5; concern for bleeding however, given abnormal echo and plan for cath GI will hold. Plan to transfuse for hgb goal >8.0 iso cardiac concerns. #Acute on chronic anemia, c/f blood loss iso ?hemorrhoidal bleed #Abdominal Pain: Hgb 8 on admission, baseline Hgb ~9-11 per chart review. CTAP without contri buting findings Trend H/H Q6H Hgb goal >8.0 iso new cardiac concerns transfuse PRN. GI evaluated, would warrant C-scope however, will defer given cardiac concerns Iron 32, tibc 201, ferritin elevated Defer to Nephrology for further optimization IV PPI BID. #Syncopal Episode #Atypical chest pain #Heart failure with reduced EF 35-40% patient with multiple syncopal episodes, ECHO with reduced EF and new wall motion abnormalities NPO midnight for LHC #Asthma: Stable, continue home meds. #DM Type II: No home agents, diet-controlled. SSI while inpatient, BSG checks ACHS. Hgb A1c was 5.6% on 04/20/24. #Hyperkalemia #ESRD on Hemodialysis: Follows w/ Dr. Leah Nieves. HD on MWF HD per nephrology #Chronic Thrombocytopenia: Plt count stable at 129 today. Follow daily w/ AM labs. Other Chronic Medical Conditions: Depression w/ anxiety, bipolar disorder --> Can continue home medications for these specific conditions. DVT Prophylaxis: SCDs/TEDs for now ISO rectal bleeding. Code Status: FULL CODE PCP: Adolph Aldridge MD Disposition: Admit to Med/Surg + Telemetry Admission and Anticipated Discharge Date Admission Date: May 05, 2024 Subjective NAEO Reports feeling weak Physical Exam Constitutional: WD/WN, vitals as above appears uncomfortable, ill Respiratory: tachycardic, regular Cardiovascular: RRR, no murmur, no edema Results & Data Results & Data Vital Signs (Past 12 Hours) Vital Signs Temp Pulse Pulse Pulse Resp BP BP 05/06/24 12:30 102 H 143/75 H 05/06/24 12:00 100 H 148/95 H 05/06/24 11:30 100 H 157/86 H 05/06/24 11:00 96 H 153/78 H 05/06/24 10:30 97 H 132/85 05/06/24 10:00 94 H 138/85 05/06/24 09:53 94 H 139/83 05/06/24 09:40 36.4 C L 95 H 05/06/24 08:08 102 H 05/06/24 07:30 36.7 C 89 20 132/84 05/06/24 02:48 37.0 C 96 H 18 129/83 05/06/24 01:33 101 H Pulse Ox O2 Del Method 05/06/24 12:30 05/06/24 12:00 05/06/24 11:30 05/06/24 11:00 05/06/24 10:30 05/06/24 10:00 05/06/24 09:53 05/06/24 09:40 05/06/24 08:08 05/06/24 07:30 95 Room Air 05/06/24 02:48 93 Room Air 05/06/24 01:33 Laboratory Results Short CBC 05/05/24 05/05/24 05/06/24 Range/Units 15:28 21:24 03:17 WBC 6.32 7.50 (4.8-10.8) K/ul Hgb 8.0 L 8.4 L 8.9 L (12.0-16.0) g/dl Hct 24.1 L 25.2 L 27.6 L (37.0-47.0) % Plt Count 129 L 152 (130-400) K/uL 05/06/24 Range/Units 09:42 WBC (4.8-10.8) K/ul Hgb 7.5 L (12.0-16.0) g/dl Hct 22.4 L (37.0-47.0) % Plt Count (130-400) K/uL BMP 05/05/24 05/06/24 15:28 03:17 Sodium 133 L 136 Potassium 5.2 H 5.1 Chloride 87 L 88 L Carbon Dioxide 25 23 BUN 84 H 92 H Creatinine 11.58 H* 12.04 H* D Glucose 119 H 89 Calcium 9.7 9.7 Liver Function 05/05/24 Range/Units 15:28 Total Bilirubin 0.6 (0.2-1.0) mg/dl AST 14 (13-39) U/L ALT 6 L (7-52) U/L Alkaline Phosphatase 89 (34-104) U/L Albumin 3.7 (3.4-5.0) gm/dl Medications Administered Home Medications Medication Instructions Recorded Confirmed Last Taken albuterol sulfate 2.5 mg/3 mL 2.5 mg inhalation Q4H PRN 06/08/23 05/05/24 Unknown (0.083 %) solution for nebulization Shortness Of Breath Or Wheezing albuterol sulfate 90 mcg/actuation 2 puff inhalation Q6H PRN 06/08/23 05/05/24 Unknown aerosol inhaler Shortness Of Breath Or Wheezing carbamazepine 200 mg tablet 200 mg PO AMPM 06/08/23 05/05/24 04/17/24 gabapentin 400 mg capsule 400 mg PO TID 06/08/23 05/05/24 04/17/24 hydroxyzine HCl 25 mg tablet 25 mg PO Q6H PRN Anxiety 06/08/23 05/05/24 Unknown lorazepam 0.5 mg tablet 0.5 mg PO Q8 PRN Anxiety 06/08/23 05/05/24 Unknown mometasone-formoterol HFA 200 2 puff inhalation BID 06/08/23 05/05/24 04/17/24 mcg-5 mcg/actuation aerosol inhaler (Dulera) omeprazole 20 mg capsule,delayed 20 mg PO DAILYBB 06/08/23 05/05/2404/17/24 release vitamin B complex-vitamin C-folic 1 tab PO DAILY 06/08/23 05/05/24 04/17/24 acid 0.8 mg tablet (Renal-Rika) benzonatate 100 mg capsule 200 mg PO TID PRN Cough 08/29/23 05/05/24 Unknown calcium acetate(phosphat bind) 667 2,001 mg PO UD 08/29/23 05/05/24 04/17/24 mg capsule cinacalcet 90 mg tablet 90 mg PO QDD 08/29/23 05/05/24 04/16/24 medroxyprogesterone 150 mg/mL 150 mg IM UD 08/29/23 05/05/24 Unknown intramuscular suspension (Depo-Provera) hydrocortisone 1 %-pramoxine 1 % 1 applic TN QID PRN itching #10 04/11/24 05/05/24 Unknown rectal foam (Proctofoam HC) grams lidocaine 5 % topical ointment 1 applic topical QID PRN pain #30 04/11/24 05/05/24 Unknown grams bupropion HCl 150 mg 24 hr tablet, 150 mg PO QAM 04/17/24 05/05/24 04/17/24 extended release mirtazapine 7.5 mg tablet 7.5 mg PO HS 04/17/24 05/05/24 04/16/24 varenicline 0.5 mg tablet 0.5 mg PO DAILY #30 tabs 04/30/24 05/05/24 Unknown Active Medications Generic Name Dose Route Start Last Admin Trade Name Freq PRN Reason Stop Dose Admin Acetaminophen 650 mg 05/05/24 21:22 05/06/24 05:47 Acetaminophen 325 Mg Tab PO 06/04/24 21:21 650 mg Q6H PRN Administration Pain or Fever Bupropion HCl 150 mg 05/06/24 09:00 05/06/24 07:54 Bupropion Xl 150 Mg Tabcr PO 06/05/24 08:59 150 mg QAM NIKKI Administration Calcium Acetate 2,001 mg 05/06/24 07:30 05/06/24 07:53 Calcium Acetate 667 Mg Cap/Tab PO 06/05/24 07:29 Not Given AC NKIKI Carbamazepine 200 mg 05/05/24 21:00 05/06/24 07:54 Carbamazepine 200 Mg Tablet PO 06/04/24 20:59 200 mg BID NIKKI Administration Fluticasone/Vilanterol 1 puffs 05/06/24 09:00 05/06/24 07:55 Fluticasone/Vilanterol 200/25mcg 14 Puffs/Inhaler INH 06/05/24 08:59 Not Given DAILY NIKKI Gabapentin 400 mg 05/05/24 21:00 05/06/24 07:56 Gabapentin 400 Mg Cap PO 06/04/24 20:59 400 mg TID NIKKI Administration Hydroxyzine HCl 25 mg 05/05/24 20:19 05/06/24 07:57 Hydroxyzine Hcl 25 Mg Tab PO 06/04/24 20:18 25 mg Q6H PRN Administration Anxiety Pantoprazole Sodium 40 mg/ 10 mls @ 5 mls/min 05/05/24 21:00 05/06/24 07:57 Syringe IV 06/04/24 20:59 5 mls/min BID NIKKI Administration Insulin Aspart 0 units 05/05/24 21:00 05/06/24 08:03 Insulin Aspart Per Unit Charge SC 06/04/24 20:59 Not Given ACHS NIKKI Lorazepam 0.5 mg 05/06/24 08:05 05/06/24 08:55 Lorazepam 2 Mg/1 Ml Vial IV 06/05/24 08:04 0.5 mg Q8H PRN Administration Anxiety/Agitation Mirtazapine 7.5 mg 05/05/24 21:00 05/05/24 21:33 Mirtazapine Tab 15 Mg Tab PO 06/04/24 20:59 7.5 mg HS NIKKI Administration Miscellaneous 1 each 05/06/24 00:00 05/06/24 08:04 Varenicline 0.5 Mg Tablet - Order Awaiting Action N/A 06/05/24 00:00 Not Given QS NIKKI Vitamin B Complex/Folic Acid 1 cap 05/06/24 09:00 05/06/24 07:56 Nephrocaps PO 06/05/24 08:59 1 cap DAILY NIKKI Administration (2) Abdominal pain Abdominal location: right upper quadrant Qualified Code(s): R10.11 - Right upper quadrant pain (3) Episode of syncope Syncope type: unspecified Qualified Code(s): R55 - Syncope and collapse (4) Chest pain Chest pain type: unspecified Qualified Code(s): R07.9 - Chest pain, unspecified
--- NOTE | 2024-05-06 13:27 | Electrocardiogram Report ---
Test Reason : Blood Pressure : */* mmHG Vent. Rate : 100 BPM Atrial Rate : 100 BPM P-R Int : 198 ms QRS Dur : 84 ms QT Int : 368 ms P-R-T Axes : 55 -33 -1 degrees QTcB Int : 474 ms Age and gender specific ECG analysis Normal sinus rhythm Left axis deviation Moderate voltage criteria for LVH, may be normal variant Anterolateral infarct (cited on or before 21-Mar-2018) Abnormal ECG When compared with ECG of 05-May-2024 14:23, (unconfirmed) ST depression has replaced ST elevation in Anterior leads Confirmed by Dash Tejada ([id number]) on 05/06/2024 1:27:27 PM Referred By: REFERRED SELF Confirmed By: Dash Tejada
--- NOTE | 2024-05-06 13:34 | Electrocardiogram Report ---
Test Reason : Blood Pressure : */* mmHG Vent. Rate : 105 BPM Atrial Rate : 105 BPM P-R Int : 242 ms QRS Dur : 102 ms QT Int : 418 ms P-R-T Axes : 89 -23 14 degrees QTcB Int : 552 ms Poor data quality, interpretation may be adversely affected Sinus tachycardia with 1st degree A-V block Anterolateral infarct (cited on or before 21-Mar-2018) Prolonged QT Abnormal ECG When compared with ECG of 05-May-2024 22:27, (unconfirmed) PA interval has increased ST more depressed Anterior leads QT has lengthened Confirmed by Dash Tejada ([id number]) on 05/06/2024 1:34:14 PM Referred By: REFERRED SELF Confirmed By: Dash Tejada
[2024-05-06] MEDS: ASPIRIN 81 MG ECTAB PO SCH (14:33)
[2024-05-06] MEDS ORDERED: Heparin IV Adult Wt-Based Low-Dose *NO* INITIAL Bolus Protocol IV STA (15:00)
[2024-05-06] MEDS: METOPROLOL TARTRATE 1 MG/ML VIAL IV ONE ×2 (15:00→15:19)
[2024-05-06] MEDS: MoRPHine SULFATE 2 MG/ML CARP IV STA (15:10)
--- NOTE | 2024-05-06 15:14 | Communication Note ---
Date of Service: May 06, 2024 Patient seen earlier in the day returned from dialysis noting left-sided chest pain. Dialysis effective for 5 L removal with 1 unit packed red cells a dministered On return to the floor as noted chest pain and discomfort no acute shortness of breath or diaphoresis but felt poorly. Heart rate elevated 110 blood pressure 124/80. EKG without acute ST elevation there with mild repolarization changes in sinus Patient given IV metoprolol 5 mg x 1 morphine 2 mg IV with improved and symptoms Additional dose metoprolol IV ordered as well as oral Will anticoagulate with IV heparin Aspirin ordered Will repeat EKG as heart rate slows Anticipate cardiac catheterization in a.m. unless acute symptoms worsen next Repeat EKG sinus rhythm at [address] elevation. Patient currently much more comfortable
[2024-05-06] MEDS: HEPARIN SODIUM/DEXTROSE 25,000 UNITS/500 ML BAG IV SCH (15:15)
[2024-05-06] MEDS: HEPARIN 25000 UNIT/500 ML D5W IV ONE (15:22)
[2024-05-06] MEDS: METOPROLOL TARTRATE 25 MG TAB PO STA (15:22)
[2024-05-06] MEDS: CINACALCET HCL 90 MG TAB PO SCH (16:52)
[2024-05-06 17:37] LABS: Hematocrit (blood only) 32.7 % (37.0-47.0); Hemoglobin 10.8 g/dl (12.0-16.0)
--- NOTE | 2024-05-06 18:12 | Dialysis Progress Note ---
Date of Service May 06, 2024 Assessment & Plan (1) ESRD on dialysis: Plan: missed her 05/04 treatment; marked volume overload and tolerated for aggressive UF today to 5L -evaluate for tx needs daily but anticipate next tx on 05/08 -AVF w/o issues -anuric/no bp meds except BB which is appropriate -added 1.5L FR (2) Chest pain: Plan: case d/w Dr Posada cardiology (see c/s note) ; as per cardiology (3) Bleeding external hemorrhoids: Plan: OP f/u recommended for hemorrhoids; avoid constipation/strains >>NB pt has 1.5L fluid limit w/ her dialysis diet (should really be 1.2 L); will need to balance ESRD FR w/ need for fiber/fluid intake >s/p pRBC 1 unit 05/06 and hgb 7.5 > 10.8 (some of low hgb was dilutional) Admission and Anticipated Discharge Date Admission Date: May 05, 2024 Subjective seen and evaluated on HD. no current c/o chest or abdominal pain; + pelvic fracture pain. no sob. Review of Systems Review of Systems: All systems reviewed & are unremarkable except as noted in Subjective Physical Exam Constitutional: well developed, well nourished, cooperative and + lethargic (s/p medication; wakens fully); no acute distress Eyes: EOM intact bilaterally ENMT: Ears: no external ear abnormality Mouth: + dry oral mucous membranes Neck: no nuchal rigidity Respiratory: normal respiratory effort Auscultation: + diminished lung sounds Cardiovascular: Rate/Rhythm: regular rate and regular rhythm Heart Sounds: + murmur Extremities: + AV fistula; no edema Gastrointestinal (Abdomen): Inspection/Auscultation: normal bowel sounds Percussion/Palpation: abdomen soft; abdomen nontender Musculoskeletal: Extremities: strength 5/5 throughout Skin: no rashes, warm and dry Psychiatric: Orientation: oriented x 3 Results & Data Vital Signs (Past 12 Hours) Vital Signs Temp Pulse Pulse Pulse Resp BP BP 05/06/24 15:39 102 H 05/06/24 15:34 88 133/81 05/06/24 15:20 94 H 130/75 05/06/24 15:19 94 H 130/75 05/06/24 15:00 105 H 112/75 05/06/24 14:48 36.5 C 105 H 20 112/75 09/11/24 14:24 36.5 C 96 H 128/76 05/06/24 14:15 36.5 C 101 H 18 120/59 L 05/06/24 14:00 101 H 122/79 05/06/24 14:00 36.5 C 97 H 18 112/69 05/06/24 13:45 36.6 C 94 H 18 129/78 05/06/24 13:30 89 115/78 05/06/24 13:25 36.5 C 102 H 18 112/68 05/06/24 13:00 97 H 143/78 H 05/06/24 12:30 102 H 143/75 H 05/06/24 12:00 100 H 148/95 H 05/06/24 11:30 100 H 157/86 H 05/06/24 11:00 96 H 153/78 H 05/06/24 10:30 97 H 132/85 05/06/24 10:00 94 H 138/85 05/06/24 09:53 94 H 139/83 05/06/24 09:40 36.4 C L 95 H 05/06/24 08:08 102 H 05/06/24 07:30 36.7 C 89 20 132/84 Pulse Ox O2 Del Method 05/06/24 15:39 05/06/24 15:34 05/06/24 15:20 05/06/24 15:19 05/06/24 15:00 05/06/24 14:48 95 Room Air 05/06/24 14:24 05/06/24 14:15 96 05/06/24 14:00 05/06/24 14:00 96 05/06/24 13:45 96 05/06/24 13:30 05/06/24 13:25 96 05/06/24 13:00 05/06/24 12:30 05/06/24 12:00 05/06/24 11:30 05/06/24 11:00 05/06/24 10:30 05/06/24 10:00 05/06/24 09:53 05/06/24 09:40 05/06/24 08:08 05/06/24 07:30 95 Room Air Laboratory Results labs reviewed (2) Chest pain Chest pain type: unspecified Qualified Code(s): R07.9 - Chest pain, unspecif ied
[2024-05-06] MEDS: PROMETHAZINE 6.25 MG/50.25 ML BAG IV PRN (18:13)
[2024-05-06] MEDS: METOPROLOL TARTRATE 25 MG TAB PO SCH (20:19)
[2024-05-06] MEDS ORDERED: LIDOCAINE 4% CREAM 15 GM TUBE EXT PRN (21:15)
[2024-05-06 22:11] LABS: ANTI-Xa, UFH(UnfractionatedHep 0.13 IU/ml (0.3-0.7)
[2024-05-06] MEDS ORDERED: Nursing to Pharmacy Communication STA (22:15)
[2024-05-06] MEDS: HEPARIN IV BOLUS 3,000 UNITS in SYRINGE 0 ML IV ONE (22:36)
[2024-05-07] MEDS: HYDROmorphone INJ 0.5 MG/0.5 ML SYR IV STA (04:44)
[2024-05-07 05:25] LABS: BUN Creatinine Ratio 6.9 (10-20); Calcium 8.7 mg/dl (8.6-10.3); Creatinine Clr Calc Pharmacy 12.6 ml/min; Est GFR (African American) 8.8 ml/min; Est GFR (Non-African American) 7.6 ml/min; Magnesium 2.2 mg/dl (1.7-2.4); Potassium 4.3 mmol/L (3.5-5.1); Troponin I High Sensitivity 153.9 pg/ml (0-14)
[2024-05-07 05:32] LABS: ANTI-Xa, UFH(UnfractionatedHep 0.26 IU/ml (0.3-0.7)
[2024-05-07 06:42] LABS: Basophils # (auto) 0.02 K/uL (0.00-0.20); Basophils % (auto) 0.4 %; Eosinophils # (auto) 0.13 K/uL (0.00-0.50); Eosinophils % (auto) 2.6 %; Hematocrit (blood only) 28.2 % (37.0-47.0); Hemoglobin 9.4 g/dl (12.0-16.0); Immature Granulocytes # (auto) 0.03 K/uL (0.01-0.20); Immature Granulocytes % (auto) 0.6 %; Lymphocytes # (auto) 0.72 K/uL (1.20-3.40); Lymphocytes % (auto) 14.4 %; Mean Corpuscular Hemoglobin 32.1 pg (25.0-34.0); Mean Corpuscular Hgb Conc 33.3 g/dL (32.0-36.0); Mean Corpuscular Volume 96.2 fL (80.0-100.0); Mean Platelet Volume 10.7 fL (9.4-12.4); Monocytes # (auto) 0.57 K/uL (0.11-0.59); Monocytes % (auto) 11.4 %; Neutrophils # (auto) 3.52 K/uL (1.40-6.50); Neutrophils % (auto) 70.6 %; Platelet Count 161 K/uL (130-400); RDW Coefficient of Variation 17.2 % (11.5-14.5); RDW Standard Deviation 60.6 fL (36.4-46.3); Red Blood Count 2.93 M/uL (4.20-5.40); White Blood Count 4.99 K/ul (4.8-10.8)
--- NOTE | 2024-05-07 10:05 | Gastroenterology Progress Note ---
Date of Service May 07, 2024 Assessment & Plan (1) Symptomatic anemia: Plan: 38 year old female with history of T2DM, focal segmental glomerulosclerosis w/ end-stage renal disease on hemodialysis, history of acute thrombosis of brachiocephalic vein, hypertension, cardiomegaly, GERD, restless leg syndrome, history of chest pains, history of syncope and collapse, history of migraine, history of anemia, history of transplant rejection admitted with chest pain and rectal bleeding. HGB drop to 7.5 yesterday s/p 1 unit RBC w/ hgb 9.4 this AM. Anticipate cardiac cath this AM. Given rectal bleeding now requiring anemia, we will consider inpatient colonoscopy pending her cardiac workup today. OP evaluation for hemorrhoidectomy. Conservatives measures. Trend HGB. Monitor and document GI output. Transfuse per primary service. Avoid constipation, straining. Good fiber intake, fluid intake. Thank you for allowing us to participate in the care of this patient. Please call with any acute changes, questions or concerns. Please see addendum below with additional recommendation from my supervising physician. I spent a total of 40 minutes on the date of service in review of patient's record, and previously obtained information in person and appropriate medical visit, discussion and education of plan, with patient and/or caregiver, placing orders for tests/referral/procedures as medically necessary and documentation of pertinent clinical information in patient's medical records for their visit today. Admission and Anticipated Discharge Date Admission Date: May 05, 2024 Supervising Physician Co-Signing Physician Notes Case discussed with Familia LINDSAY. 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 Obviously we will await results of cardiac cath as this takes precedence. Subjective Endorses continued chest pressure. Is for cardiac cath today. Did have an additional episodes of rectal bleeding last evening. She again reports this is consistent with her hemorrhoidal bleeding. Her blood count did fall yesterday to 7 requiring 1 unit RBC. This AM HGB 9.4 Review of Systems Review of Systems: All other findings negative except as noted in HPI. Physical Exam Constitutional: WD/WN, vitals as above Respiratory: normal respiratory effort, lungs clear to auscultation Cardiovascular: Rate/Rhythm: regular rate and regular rhythm Gastrointestinal (Abdomen): normal bowel sounds, soft, nontender, no hepatosplenomegaly Skin: no rashes, warm and dry Results & Data Results & Data Vital Signs (Past 12 Hours) Vital Signs Temp Pulse Pulse Resp BP Pulse Ox O2 Del Method 05/07/24 09:53 74 05/07/24 07:17 36.8 C 71 16 113/75 99 Room Air 05/07/24 02:44 36.6 C 75 18 100/64 93 Room Air 05/07/24 00:39 75 05/06/24 22:36 36.5 C 73 18 110/68 92 Room Air Laboratory Results 05/07/24 05/07/24 05/07/24 Range/Units 07:18 06:02 04:39 WBC 4.99 (4.8-10.8) K/ul RBC 2.93 L (4.20-5.40) M/uL Hgb 9.4 L (12.0-16.0) g/dl Hct 28.2 L (37.0-47.0) % MCV 96.2 (80.0-100.0) fL MCH 32.1 (25.0-34.0) pg MCHC 33.3 (32.0-36.0) g/dL RDW Std Deviation 60.6 H (36.4-46.3) fL RDW Coeff of Laith 17.2 H (11.5-14.5) % Plt Count 161 (130-400) K/uL MPV 10.7 (9.4-12.4) fL Immature Gran % (Auto) 0.6 % Neut % (Auto) 70.6 % Lymph % (Auto) 14.4 % [place] % (Auto) 11.4 % Eos % (Auto) 2.6 % Baso % (Auto) 0.4 % Neut # (Auto) 3.52 (1.40-6.50) K/uL Lymph # (Auto) 0.72 L (1.20-3.40) K/uL [place] # (Auto) 0.57 (0.11-0.59) K/uL Eos # (Auto) 0.13 (0.00-0.50) K/uL Baso # (Auto) 0.02 (0.00-0.20) K/uL Immature Gran # (Auto) 0.03 (0.01-0.20) K/uL Heparin Anti-Xa, Unfract 0.26 L (0.3-0.7) IU/ml Sodium 133 L (136-145) mmol/L Potassium 4.3 (3.5-5.1) mmol/L Chloride 91 L (98-107) mmol/L Carbon Dioxide 25 (21-32) mmol/L Anion Gap 17 H (3-11) BUN 44 H D (6-23) mg/dl Creatinine 6.38 H* D (0.6-1.2) mg/dl Est Cr Clr Drug Dosing 12.6 ml/min Est GFR ( Amer) 8.8 ml/min Est GFR (Non-Af Amer) 7.6 ml/min BUN/Creatinine Ratio 6.9 L (10-20) Glucose 114 H (70-99(Fasting)) mg/dl POC Glucose 126 H (70-99) mg/dl Calcium 8.7 (8.6-10.3) mg/dl Magnesium 2.2 (1.7-2.4) mg/dl Troponin I High Sens 153.9 H* (0-14) pg/ml Stool Occult Bld Scrn (Negative) Blood Type Antibody Screen Crossmatch 05/06/24 05/06/24 05/06/24 Range/Units Unknown 21:32 19:46 WBC (4.8-10.8) K/ul RBC (4.20-5.40) M/uL Hgb (12.0-16.0) g/dl Hct (37.0-47.0) % MCV (80.0-100.0) fL MCH (25.0-34.0) pg MCHC (32.0-36.0) g/dL RDW Std Deviation (36.4-46.3) fL RDW Coeff of Laith (11.5-14.5) % Plt Count (130-400) K/uL MPV (9.4-12.4) fL Immature Gran % (Auto) % Neut % (Auto) % Lymph % (Auto) % [place] % (Auto) % Eos % (Auto) % Baso % (Auto) % Neut # (Auto) (1.40-6.50) K/uL Lymph # (Auto) (1.20-3.40) K/uL [place] # (Auto) (0.11-0.59) K/uL Eos # (Auto) (0.00-0.50) K/uL Baso # (Auto) (0.00-0.20) K/uL Immature Gran # (Auto) (0.01-0.20) K/uL Heparin Anti-Xa, Unfract 0.13 L (0.3-0.7) IU/ml Sodium (136-145) mmol/L Potassium (3.5-5.1) mmol/L Chloride (98-107) mmol/L Carbon Dioxide (21-32) mmol/L Anion Gap (3-11) BUN (6-23) mg/dl Creatinine (0.6-1.2) mg/dl Est Cr Clr Drug Dosing ml/min Est GFR ( Amer) ml/min Est GFR (Non-Af Amer) ml/min BUN/Creatinine Ratio (10-20) Glucose (70-99(Fasting)) mg/dl POC Glucose 143 H (70-99) mg/dl Calcium (8.6-10.3) mg/dl Magnesium (1.7-2.4) mg/dl Troponin I High Sens (0-14) pg/ml Stool Occult Bld Scrn Positive A (Negative) Blood Type Antibody Screen Crossmatch 05/06/24 05/06/24 05/06/24 Range/Units 17:30 16:27 09:42 WBC (4.8-10.8) K/ul RBC (4.20-5.40) M/uL Hgb 10.8 L D 7.5 L (12.0-16.0) g/dl Hct 32.7 L 22.4 L (37.0-47.0) % MCV (80.0-100.0) fL MCH (25.0-34.0) pg MCHC (32.0-36.0) g/dL RDW Std Deviation (36.4-46.3) fL RDW Coeff of Laith (11.5-14.5) % Plt Count (130-400) K/uL MPV (9.4-12.4) fL Immature Gran % (Auto) % Neut % (Auto) % Lymph % (Auto) % [place] % (Auto) % Eos % (Auto) % Baso % (Auto) % Neut # (Auto) (1.40-6.50) K/uL Lymph # (Auto) (1.20-3.40) K/uL [place] # (Auto) (0.11-0.59) K/uL Eos # (Auto) (0.00-0.50) K/uL Baso # (Auto) (0.00-0.20) K/uL Immature Gran # (Auto) (0.01-0.20) K/uL Heparin Anti-Xa, Unfract (0.3-0.7) IU/ml Sodium (136-145) mmol/L Potassium (3.5-5.1) mmol/L Chloride (98-107) mmol/L Carbon Dioxide (21-32) mmol/L Anion Gap (3-11) BUN (6-23) mg/dl Creatinine (0.6-1.2) mg/dl Est Cr Clr Drug Dosing ml/min Est GFR ( Amer) ml/min Est GFR (Non-Af Amer) ml/min BUN/Creatinine Ratio (10-20) Glucose (70-99(Fasting)) mg/dl POC Glucose 142 H (70-99) mg/dl Calcium (8.6-10.3) mg/dl Magnesium (1.7-2.4) mg/dl Troponin I High Sens 132.5 H* (0-14) pg/ml Stool Occult Bld Scrn (Negative) Blood Type Antibody Screen Crossmatch 05/05/24 Range/Units 19:13 WBC (4.8-10.8) K/ul RBC (4.20-5.40) M/uL Hgb (12.0-16.0) g/dl Hct (37.0-47.0) % MCV (80.0-100.0) fL MCH (25.0-34.0) pg MCHC (32.0-36.0) g/dL RDW Std Deviation (36.4-46.3) fL RDW Coeff of Laith (11.5-14.5) % Plt Count (130-400) K/uL MPV (9.4-12.4) fL Immature Gran % (Auto) % Neut % (Auto) % Lymph % (Auto) % [place] % (Auto) % Eos % (Auto) % Baso % (Auto) % Neut # (Auto) (1.40-6.50) K/uL Lymph # (Auto) (1.20-3.40) K/uL [place] # (Auto) (0.11-0.59) K/uL Eos # (Auto) (0.00-0.50) K/uL Baso # (Auto) (0.00-0.20) K/uL Immature Gran # (Auto) (0.01-0.20) K/uL Heparin Anti-Xa, Unfract (0.3-0.7) IU/ml Sodium (136-145) mmol/L Potassium (3.5-5.1) mmol/L Chloride (98-107) mmol/L Carbon Dioxide (21-32) mmol/L Anion Gap (3-11) BUN (6-23) mg/dl Creatinine (0.6-1.2) mg/dl Est Cr Clr Drug Dosing ml/min Est GFR ( Amer) ml/min Est GFR (Non-Af Amer) ml/min BUN/Creatinine Ratio (10-20) Glucose (70-99(Fasting)) mg/dl POC Glucose (70-99) mg/dl Calcium (8.6-10.3) mg/dl Magnesium (1.7-2.4) mg/dl Troponin I High Sens (0-14) pg/ml Stool Occult Bld Scrn (Negative) Blood Type A Positive Antibody Screen NEGATIVE Crossmatch See Detail PG Care Time/CCT Total # of Minutes Spent Total Time Spent with Patient: Total time spent is greater than 50% in coordination of care (as documented) at patient's floor/unit and/or counseling patient: Coding Level of Care Code 19919 SUB INP/OBS CARE 2/35MIN Diagnoses Symptomatic anemia D64.9
--- NOTE | 2024-05-07 10:36 | Pre Anesthesia Assessment ---
Date of Service May 07, 2024 Pre Sedation Assessment Vital Signs Temp Pulse Pulse Resp BP BP Pulse Ox 05/07/24 09:53 74 05/07/24 07:17 98.2 F 71 16 113/75 99 05/07/24 02:44 97.9 F 75 18 100/64 93 05/07/24 00:39 75 05/06/24 22:36 97.7 F 73 18 110/68 92 05/06/24 21:13 05/06/24 20:19 05/06/24 19:41 98.6 F 82 18 106/70 95 05/06/24 15:39 102 H 05/06/24 15:34 88 133/81 05/06/24 15:20 94 H 130/75 05/06/24 15:19 94 H 130/75 05/06/24 15:00 105 H 112/75 05/06/24 14:48 97.7 F 105 H 20 112/75 95 05/06/24 14:24 97.7 F 96 H 128/76 05/06/24 14:15 97.7 F 101 H 18 120/59 L 96 05/06/24 14:00 101 H 122/79 05/06/24 14:00 97.7 F 97 H 18 112/69 96 05/06/24 13:45 97.9 F 94 H 18 129/78 96 05/06/24 13:30 89 115/78 05/06/24 13:25 97.7 F 102 H 18 112/68 96 05/06/24 13:00 97 H 143/78 H 05/06/24 12:30 102 H 143/75 H 05/06/24 12:00 100 H 148/95 H 05/06/24 11:30 100 H 157/86 H 05/06/24 11:00 96 H 153/78 H O2 Del Method O2 Del Method 05/07/24 09:53 05/07/24 07:17 Room Air 05/07/24 02:44 Room Air 05/07/24 00:39 05/06/24 22:36 Room Air 05/06/24 21:13 Room Air 05/06/24 20:19 Room Air 05/06/24 19:41 Room Air 05/06/24 15:39 05/06/24 15:34 05/06/24 15:20 05/06/24 15:19 05/06/24 15:00 05/06/24 14:48 Room Air 05/06/24 14:24 05/06/24 14:15 05/06/24 14:00 05/06/24 14:00 05/06/24 13:45 05/06/24 13:30 05/06/24 13:25 05/06/24 13:00 05/06/24 12:30 05/06/24 12:00 05/06/24 11:30 05/06/24 11:00 Cardiovascular + regular rate Respiratory + respiratory effort normal Pre-Sedation Airway Assessment Smoking Status: Former smoker Hx Sleep Apnea: No Hx Difficult Intubation: No Short, Thick Neck: No Thyromental Distance: < 3.5 Finger Breadths Oral Cavity: + Dental Abnormalities Mallampati Class: III ASA: ASA3 Procedure Planning Contraindications for Sedation: none Current Medications Reviewed: Yes Notes The planned sedation has been discussed with the patient. Informed Consent was obtained. I have identified the patient, determined the appropriateness of sedation and have assessed the patient immediately prior to the procedure. All medicine(s) and interventions are by my order.
--- NOTE | 2024-05-07 10:36 | Cardiology Progress Note ---
Date of Service May 07, 2024 Assessment & Plan (1) Chest pain: (2) Elevated troponin: (3) ESRD on dialysis: (4) Non-compliance: (5) Rectal bleeding: (6) Anemia: Plan Assessment: 38 year old medically complex female presents with ongoing episodes of chest pain in the setting of multiple missed HD treatments, as well as rectal bleeding. Multiple recent hospitalizations for similar concerns with poor interval in between to pursue OP work up. New echocardiogram today showing acute change in wall motion. Cardiology requested for further evaluation. Plan: 1. Chest pain: 2. Elevated Troponin: -patient with multiple recent admissions for chest pain episodes, typically consistent with missed HD treatments and volume overload. -Troponin with chronic elevation difficult in the setting of ESRD. -EKG with no acute ST-T wave changes. Suggestion of prior infarct. -No ectopy or arrhythmia noted on telemetry. -Echocardiogram obtained today shows reduction in LVEF to 35-40%, previously 50- 55% (04/20/24) and severe hypokinesis to akinesis of the apex and hypokinesis of the mid septal and inferior wall. When this was compared with her most recent study dates 04/20/24, LAD distribution wall motion abnormalities are new. -Discussed findings with patient and recommendation for consideration for cardiac cath. Patient is in agreement to proceed. -patient is currently receiving HD treatments and will likely not complete until later this afternoon. Will discuss case with Dr. Posada for guidance on plan for invasive study. -will await post HD report for fluid balance. -Will make patient NPO after midnight if able to proceed. 3. ESRD on dialysis 4. Non-compliance -History of FSGS and failed renal transplant on HD therapy 3x per week. -Known non-compliance and frequently missed treatments. Last treatment (prior to today) was Saturday05/01/24. -Continued management per primary team and Nephrology. 5. Rectal bleeding 6. Anemia -Known history of bleeding hemorrhoids. was seen last week inpatient with recommendation for OP colo-rectal referral for further treatment or intervention. -Continued management per primary team. 05/07/2024 38-year-old female with cardiac history notable for recent hospitalization for chest pain with recurrent chest pain resulting in admission. Patient acutely ill on presentation with echocardiogram demonstrating new cardiomyopathy with apical wall motion abnormality, ischemic versus stress mediated. Patient has undergone dialysis and transfusion Symptoms much improved following administration of beta-pool. Previously on carvedilol but discontinued due to labile blood pressures Plan: Coronary angiography today to exclude obstructive coronary disease Continue metoprolol titrate as ordered Further recommendations following diagnostic imaging Admission and Anticipated Discharge Date Admission Date: May 05, 2024 Subjective Patient was seen and examined, chart, medications, telemetry reviewed Still with low-grade chest ache but much more comfortable than day prior heart rate and blood pressure much improved. No bleeding issues on IV heparin Troponin elevated but flat without evolution Review of Systems Review of Systems: All systems reviewed & are unremarkable except as noted in Subjective Physical Exam Constitutional: + overweight; no acute distress Eyes: PERRL, conjunctivae normal, anicteric sclerae Neck: normal visual inspection and trachea midline Respiratory: no respiratory distress, no labored breathing, no retractions and no cough Auscultation: + diminished lung sounds (bilateral bases ); no crackles, no rales and no rhonchi Cardiovascular: Rate/Rhythm: regular rate and regular rhythm Heart Sounds: normal S1 and normal S2; no murmur Vessels: femoral pulses present Extremities: + AV fistula (Bilateral arms brachial); no edema Gastrointestinal (Abdomen): normal bowel sounds, soft, nontender, no hepatosplenomegaly Skin: no rashes, warm and dry (bilateral upper extremity fistulas ) Psychiatric: Orientation: oriented x 3; + not alert (drowsy) Eye Contact: good eye contact Affect: euthymic affect Results & Data Vital Signs (Past 12 Hours) Vital Signs Temp Pulse Pulse Resp BP Pulse Ox O2 Del Method 05/07/24 09:53 74 05/07/24 07:17 36.8 C 71 16 113/75 99 Room Air 05/07/24 02:44 36.6 C 75 18 100/64 93 Room Air 05/07/24 00:39 75 05/06/24 22:36 36.5 C 73 18 110/68 92 Room Air Laboratory Results Laboratory Results - last 24 hr 05/05/24 05/06/24 05/06/24 19:13 16:27 17:30 WBC RBC Hgb 10.8 L D Hct 32.7 L MCV MCH MCHC RDW Std Deviation RDW Coeff of Laith Plt Count MPV Immature Gran % (Auto) Neut % (Auto) Lymph % (Auto) Alfalfa % (Auto) Eos % (Auto) Baso % (Auto) Neut # (Auto) Lymph # (Auto) Alfalfa # (Auto) Eos # (Auto) Baso # (Auto) Immature Gran # (Auto) Heparin Anti-Xa, Unfract Sodium Potassium Chloride Carbon Dioxide Anion Gap BUN Creatinine Est Cr Clr Drug Dosing Est GFR ( Amer) Est GFR (Non-Af Amer) BUN/Creatinine Ratio Glucose POC Glucose 142 H Calcium Magnesium Troponin I High Sens Stool Occult Bld Scrn Blood Type A Positive Antibody Screen NEGATIVE Crossmatch See Detail 05/06/24 05/06/24 05/06/24 19:46 21:32 Unknown WBC RBC Hgb Hct MCV MCH MCHC RDW Std Deviation RDW Coeff of Laith Plt Count MPV Immature Gran % (Auto) Neut % (Auto) Lymph % (Auto) Alfalfa % (Auto) Eos % (Auto) Baso % (Auto) Neut # (Auto) Lymph # (Auto) Alfalfa # (Auto) Eos # (Auto) Baso # (Auto) Immature Gran # (Auto) Heparin Anti-Xa, Unfract 0.13 L Sodium Potassium Chloride Carbon Dioxide Anion Gap BUN Creatinine Est Cr Clr Drug Dosing Est GFR ( Amer) Est GFR (Non-Af Amer) BUN/Creatinine Ratio Glucose POC Glucose 143 H Calcium Magnesium Troponin I High Sens Stool Occult Bld Scrn Positive A Blood Type Antibody Screen Crossmatch 05/07/24 05/07/24 05/07/24 04:39 06:02 07:18 WBC 4.99 RBC 2.93 L Hgb 9.4 L Hct 28.2 L MCV 96.2 MCH 32.1 MCHC 33.3 RDW Std Deviation 60.6 H RDW Coeff of Laith 17.2 H Plt Count 161 MPV 10.7 Immature Gran % (Auto) 0.6 Neut % (Auto) 70.6 Lymph % (Auto) 14.4 Alfalfa % (Auto) 11.4 Eos % (Auto) 2.6 Baso % (Auto) 0.4 Neut # (Auto) 3.52 Lymph # (Auto) 0.72 L Alfalfa # (Auto) 0.57 Eos # (Auto) 0.13 Baso # (Auto) 0.02 Immature Gran # (Auto) 0.03 Heparin Anti-Xa, Unfract 0.26 L Sodium 133 L Potassium 4.3 Chloride 91 L Carbon Dioxide 25 Anion Gap 17 H BUN 44 H D Creatinine 6.38 H* D Est Cr Clr Drug Dosing 12.6 Est GFR ( Amer) 8.8 Est GFR (Non-Af Amer) 7.6 BUN/Creatinine Ratio 6.9 L Glucose 114 H POC Glucose 126 H Calcium 8.7 Magnesium 2.2 Troponin I High Sens 153.9 H* Stool Occult Bld Scrn Blood Type Antibody Screen Crossmatch (1) Chest pain Chest pain type: unspecified Qualified Code(s): R07.9 - Chest pain, unspecified (6) Anemia Anemia type: unspecified type Qualified Code(s): D64.9 - Anemia, unspecified
--- NOTE | 2024-05-07 12:04 | Electrocardiogram Report ---
Test Reason : Blood Pressure : */* mmHG Vent. Rate : 104 BPM Atrial Rate : 104 BPM P-R Int : 170 ms QRS Dur : 110 ms QT Int : 392 ms P-R-T Axes : 43 37 37 degrees QTcB Int : 515 ms Sinus tachycardia Moderate voltage criteria for LVH, may be normal variant Anterolateral infarct (cited on or before 21-Mar-2018) Abnormal ECG When compared with ECG of 06-May-2024 05:52, MO interval has decreased Confirmed by Dash Tejada ([id number]) on 05/07/2024 12:03:59 PM Referred By: REFERRED SELF Confirmed By: Dash Tejada
[2024-05-07] MEDS: MIDAZOLAM HCL 1 MG/ML 2ML VIAL ONE ×2 (12:14→13:07)
[2024-05-07] MEDS: fentaNYL citrate PF 100 MCG/2 ML VIAL ONE (12:14)
[2024-05-07] MEDS: HEPARIN (PORCINE) 1000 UNIT/ML 10 ML (CATH LAB USE ONLY) ONE ×2 (12:15→12:44)
--- NOTE | 2024-05-07 12:45 | Electrocardiogram Report ---
Test Reason : Blood Pressure : */* mmHG Vent. Rate : 88 BPM Atrial Rate : 88 BPM P-R Int : 154 ms QRS Dur : 106 ms QT Int : 454 ms P-R-T Axes : 39 39 44 degrees QTcB Int : 549 ms Normal sinus rhythm Possible Left atrial enlargement Anterolateral infarct (cited on or before 21-Mar-2018) Prolonged QT Abnormal ECG When compared with ECG of 06-May-2024 14:37, (unconfirmed) No significant change was found Confirmed by Dash Tejada ([id number]) on 05/07/2024 12:44:44 PM Referred By: REFERRED SELF Confirmed By: Dash Tejada
[2024-05-07] MEDS: IODIXANOL (VISIPAQUE) 320 MG/ML 100ML IV ONE (14:31)
[2024-05-07] MEDS: NITROGLYCERIN/D5W 100MCG/ML 20ML SYR ONE (14:32)
[2024-05-07] MEDS: niCARdipine HCL INJ 2.5 MG/ML 10 ML AMP ONE (14:32)
[2024-05-07] MEDS: CLOPIDOGREL BISULFATE 300 MG TAB ONE (14:35)
--- NOTE | 2024-05-07 14:36 | Electrocardiogram Report ---
Test Reason : Blood Pressure : */* mmHG Vent. Rate : 76 BPM Atrial Rate : 76 BPM P-R Int : 164 ms QRS Dur : 110 ms QT Int : 478 ms P-R-T Axes : 37 -45 -3 degrees QTcB Int : 537 ms Normal sinus rhythm Possible Left atrial enlargement Left anterior fascicular block Left ventricular hypertrophy Anterolateral infarct (cited on or before 21-Mar-2018) Prolonged QT Abnormal ECG When compared with ECG of 06-May-2024 15:39, (unconfirmed) Left anterior fascicular block is now Present T wave inversion now evident in Inferior leads Confirmed by Dash Tejada ([id number]) on 05/07/2024 2:36:06 PM Referred By: REFERRED SELF Confirmed By: Dash Tejada
--- NOTE | 2024-05-07 14:47 | Post Anesthesia Assessment ---
Date of Service May 07, 2024 Post Sedation Assessment Vital Signs Temp Pulse Pulse Pulse Resp BP BP 05/07/24 14:36 74 16 111/64 05/07/24 10:35 95 H 14 103/54 L 05/07/24 09:53 74 05/07/24 07:17 98.2 F 71 16 113/75 05/07/24 02:44 97.9 F 75 18 100/64 05/07/24 00:39 75 05/06/24 22:36 97.7 F 73 18 110/68 05/06/24 21:13 05/06/24 20:19 05/06/24 19:41 98.6 F 82 18 106/70 05/06/24 15:39 102 H 05/06/24 15:34 88 133/81 05/06/24 15:20 94 H 130/75 05/06/24 15:19 94 H 130/75 05/06/24 15:00 105 H 112/75 05/06/24 14:48 97.7 F 105 H 20 112/75 Pulse Ox O2 Del Method O2 Del Method 05/07/24 14:36 93 Room Air 05/07/24 10:35 96 Room Air 05/07/24 09:53 05/07/24 07:17 99 Room Air 05/07/24 02:44 93 Room Air 05/07/24 00:39 05/06/24 22:36 92 Room Air 05/06/24 21:13 Room Air 05/06/24 20:19 Room Air 05/06/24 19:41 95 Room Air 05/06/24 15:39 05/06/24 15:34 05/06/24 15:20 05/06/24 15:19 05/06/24 15:00 05/06/24 14:48 95 Room Air Recovery Score Activity: Moves 4 extremities Respiration: Deep Breath/Cough Circulation: +/-20% PreAnes Value Consciousness: Fully Awake Oxygen Saturation: > 92% On Room Air Post Anesthesia Score: 10 Discharge Sedation Level of Care: Fast Track Phase II Post Sedation Plan On clinical assessment, the patient appears to have tolerated the sedation without complications. Patient is recovering as anticipated. Patient will continue to be monitored by nursing and may be discharged when sedation discharge criteria are met per below protocol. Upon Completions of procedure up to 15 minutes continue every 5 minute vital signs and the P.A.R. score; then discharge to a Phase I or Fast Track to Phase II per the following guidelines: * Discharge Patient to appropriate Phase II area if PAR is 8 or greater or return to pre- procedure baseline. The post - procedure orders will be as directed. * If PAR score is less than 8 or not return to pre-procedure baseline then patient will follow Phase I monitoring till PAR is reached for Phase II. The Phase I may be done in procedure room or may call to secure a Phase I area. * If naloxone or flumazenil are used for reversal, hold in Phase I for continued monitoring from when last reversal dose was given for a minimum of 60 minutes or longer pending the nurse and/or physician discretion of patient condition before discharge to Phase II. Please call the Sedation Physician to re-evaluate and complete post-note for discharge to Phase II area. Do NOT discharge from procedure sedation or Phase 1 until post- sedation evaluation note is complete by procedure /sedation MD Sedation Discharge Instructions to be given to the patient at discharge to home.
[2024-05-07] MEDS: OPTIRAY 350 ONE (14:51)
--- NOTE | 2024-05-07 14:51 | Post Operative Brief Note ---
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 Distal LAD fills via left to left and right to left collaterals. 100% proximal D1. Partially fills via left to left collaterals Bifurcation [id number] distal RCA stenosis into right posterior AV branch, 95% ostial PDA PCI of distal RCA into right posterior AV branch with single drug-eluting stent (3.5 x 26 mm [place]; postdilated with 4.0 NC). Unsuccessful attempt to stent ostial PDA. Post procedure residual severe stenosis with AIDA-3 flow. Anesthesia Type RN Sedation Complications none Disposition Accompanied Patient To Recovery: Yes Disposition: PCU Overlapping Procedure I was present for: the critical portions of procedure.
--- NOTE | 2024-05-07 15:03 | Hospitalist Progress Note ---
Date of Service May 07, 2024 Assessment & Plan (1) Rectal bleeding: (2) Abdominal pain: (3) Episode of syncope: (4) Chest pain: Plan Ms. Alexandra Arguello is a 38y/o F with PMHx of diet-controlled DM type II, ESRD on hemodialysis, history of acute thrombosis of brachiocephalic vein, HTN, cardiomegaly, GERD, restless leg syndrome, history of chest pains, history of syncope and collapse, history of migraine, history of anemia [baseline Hgb ~9- 11], history of transplant rejection, history of depression with anxiety, bipolar disorder and other problems listed below who presented to the ED via EMS for evaluation of multiple complaints. She was recently admitted 04/29/24-04/30/24 for evaluation of chest pain. Plan at that time was for her to undergo Lexiscan nuclear stress testing as outpatient Patient's course complicated by abnormal echo iso chest pain, cardiology co nsulted with plans for LHC. Patient underwent LHC on 05/07 with placement of stent in rPDA. Patient also with anemia, hgb down to 7.5 prompting transfusion of 1 UPRBC on 05/06. Patient with robust response to unit administered. GI following and notes that anemia warrants further investigation, however, deferred as cardiac issues addressed. Continue transfusion goal for hgb goal >8.0 iso CAD/vasculopathy #Obstructive Coronary artery disease s/p ARIEL rPDA #Syncopal Episode #Atypical chest pain #New Heart failure with reduced EF 35-40% likely 2/2 Ischemic cardiomyopathy patient with multiple syncopal episodes, ECHO with reduced EF and new wall motion abnormalities patient with recurrent episodes of chest pain, but EKG negative of acute changes ECHO with severe hypokinesis of apex and midseptal/inferior wall patient s/p LHC on 05/07 with stent to rPDA Follow cardiology recommendations for optimization/GDMT -continue metoprolol tartrate BID for now -ASA and plavix -Await further recommendations #Acute on chronic anemia, c/f blood loss iso ?hemorrhoidal bleed #Abdominal Pain: Hgb 8 on admission, baseline Hgb ~9-11 per chart review. CTAP without contributing findings Hgb goal >8.0 iso new cardiac concerns transfuse PRN. GI evaluated, would warrant C-scope however, will defer given cardiac concerns Iron 32, tibc 201, ferritin elevated Defer to Nephrology for further optimization IV PPI BID. Patient s/p 1 U PRBC 05/06 with robust response, goal hgb remains >8.0 Concern with continued GIB iso DAPT GI following, will appreciate continued recommendations repeat cbc in am #Asthma: Stable, continue home meds. #DM Type II: No home agents, diet-controlled. SSI while inpatient, BSG checks ACHS. Hgb A1c was 5.6% on 04/20/24. #Hyperkalemia #ESRD on Hemodialysis: Follows w/ Dr. Leah Nieves. HD on MWF HD per nephrology #Chronic Thrombocytopenia: Plt count stable at 129 today. Follow daily w/ AM labs. Other Chronic Medical Conditions: Depression w/ anxiety, bipolar disorder --> Can continue home medications for these specific conditions. DVT Prophylaxis: SCDs/TEDs for now ISO rectal bleeding. Code Status: FULL CODE PCP: Adolph Aldridge MD Disposition: Admit to Med/Surg + Telemetry Admission and Anticipated Discharge Date Admission Date: May 05, 2024 Subjective evaluated patient prior to cath, sitting in bedside chair Reports intermittent chest pain through the evening Denies any other episode of bleeding this morning Reports understanding of LHC procedure and denies any current questions about plan Physical Exam Constitutional: WD/WN, vitals as above Respiratory: normal respiratory effort, lungs clear to auscultation Cardiovascular: RRR, no murmur, no edema Gastrointestinal (Abdomen): normal bowel sounds, soft, nontender, no hepatosplenomegaly Results & Data Results & Data Vital Signs (Past 12 Hours) Vital Signs Temp Pulse Pulse Pulse Resp BP Pulse Ox 05/07/24 14:36 74 16 111/64 93 05/07/24 10:35 95 H 14 103/54 L 96 05/07/24 09:53 74 05/07/24 07:17 36.8 C 71 16 113/75 99 O2 Del Method 05/07/24 14:36 Room Air 05/07/24 10:35 Room Air 05/07/24 09:53 05/07/24 07:17 Room Air Laboratory Results Short CBC 05/06/24 05/07/24 Range/Units 17:30 06:02 WBC 4.99 (4.8-10.8) K/ul Hgb 10.8 L D 9.4 L (12.0-16.0) g/dl Hct 32.7 L 28.2 L (37.0-47.0) % Plt Count 161 (130-400) K/uL BMP 05/07/24 04:39 Sodium 133 L Potassium 4.3 Chloride 91 L Carbon Dioxide 25 BUN 44 H D Creatinine 6.38 H* D Glucose 114 H Calcium 8.7 Medications Administered Home Medications Medication Instructions Recorded Confirmed Last Taken albuterol sulfate 2.5 mg/3 mL 2.5 mg inhalation Q4H PRN 06/08/23 05/05/24 Unknown (0.083 %) solution for nebulization Shortness Of Breath Or Wheezing albuterol sulfate 90 mcg/actuation 2 puff inhalation Q6H PRN 06/08/23 05/05/24 Unknown aerosol inhaler Shortness Of Breath Or Wheezing carbamazepine 200 mg tablet 200 mg PO AMPM 06/08/23 05/05/24 04/17/24 gabapentin 400 mg capsule 400 mg PO TID 06/08/23 05/05/24 04/17/24 hydroxyzine HCl 25 mg tablet 25 mg PO Q6H PRN Anxiety 06/08/23 05/05/24 Unknown lorazepam 0.5 mg tablet 0.5 mg PO Q8 PRN Anxiety 06/08/23 05/05/24 Unknown mometasone-formoterol HFA 200 2 puff inhalation BID 06/08/23 05/05/24 04/17/24 mcg-5 mcg/actuation aerosol inhaler (Dulera) omeprazole 20 mg capsule,delayed 20 mg PO DAILYBB 06/08/23 05/05/24 04/17/24 release vitamin B complex-vitamin C-folic 1 tab PO DAILY 06/08/23 05/05/24 04/17/24 acid 0.8 mg tablet (Renal-Rika) benzonatate 100 mg capsule 200 mg PO TID PRN Cough 08/29/23 05/05/24 Unknown calcium acetate(phosphat bind) 667 2,001 mg PO UD 08/29/23 05/05/24 04/17/24 mg capsule cinacalcet 90 mg tablet 90 mg PO QDD 08/29/23 05/05/24 04/16/24 medroxyprogesterone 150 mg/mL 150 mg IM UD 08/29/23 05/05/24 Unknown intramuscular suspension (Depo-Provera) hydrocortisone 1 %-pramoxine 1 % 1 applic MT QID PRN itching #10 04/11/24 05/05/24 Unknown rectal foam (Proctofoam HC) grams lidocaine 5 % topical ointment 1 applic topical QID PRN pain #30 04/11/24 05/05/24 Unknown grams bupropion HCl 150 mg 24 hr tablet, 150 mg PO QAM 04/17/24 05/05/24 04/17/24 extended release mirtazapine 7.5 mg tablet 7.5 mg PO HS 04/17/24 05/05/24 04/16/24 varenicline 0.5 mg tablet 0.5 mg PO DAILY #30 tabs 04/30/24 05/05/24 Unknown Active Medications Generic Name Dose Route Start Last Admin Trade Name Freq PRN Reason Stop Dose Admin Acetaminophen 650 mg 05/05/24 21:22 05/06/24 20:17 Acetaminophen 325 Mg Tab PO 06/04/24 21:21 650 mg Q6H PRN Administration Pain or Fever Aspirin 81 mg 05/06/24 13:30 05/07/24 09:08 Aspirin 81 Mg Ectab PO 06/05/24 13:29 81 mg QAM NIKKI Administration Bupropion HCl 150 mg 05/06/24 09:00 05/07/24 09:09 Bupropion Xl 150 Mg Tabcr PO 06/05/24 08:59 150 mg QAM NIKKI Administration Calcium Acetate 2,001 mg 05/06/24 07:30 05/07/24 08:26 Calcium Acetate 667 Mg Cap/Tab PO 06/05/24 07:29 Not Given AC NIKKI Carbamazepine 200 mg 05/05/24 21:00 05/07/24 09:09 Carbamazepine 200 Mg Tablet PO 06/04/24 20:59 200 mg BID NIKKI Administration Cinacalcet 90 mg 05/06/24 16:30 05/06/24 16:52 Cinacalcet Hcl 90 Mg Tab PO 06/05/24 16:29 90 mg QDD NIKKI Administration Fluticasone/Vilanterol 1 puffs 05/06/24 09:00 05/07/24 09:10 Fluticasone/Vilanterol 200/25mcg 14 Puffs/Inhaler INH 06/05/24 08:59 Not Given DAILY NIKKI Gabapentin 400 mg 05/05/24 21:00 05/07/24 09:11 Gabapentin 400 Mg Cap PO 06/04/24 20:59 400 mg TID NIKKI Administration Hydroxyzine HCl 25 mg 05/05/24 20:19 05/06/24 07:57 Hydroxyzine Hcl 25 Mg Tab PO 06/04/24 20:18 25 mg Q6H PRN Administration Anxiety Pantoprazole Sodium 40 mg/ 10 mls @ 5 mls/min 05/05/24 21:00 05/07/24 09:14 Syringe IV 06/04/24 20:59 5 mls/min BID NIKKI Administration Promethazine HCl 6.25 mg in 50.25 mls @ 201 mls/hr 05/05/24 20:19 05/06/24 18:43 Phenergan IV 06/04/24 20:18 Infused Q6H PRN Infusion Nausea And Vomiting Heparin Sodium/Dextrose 25,000 units in 500 mls @ 20 mls/hr 05/06/24 15:15 05/07/24 07:13 Heparin Sodium/Dextrose IV 06/05/24 15:14 1,000 units/hr .Q24H NIKKI 20 mls/hr Titration Protocol 1,000 UNITS/HR Insulin Aspart 0 units 05/05/24 21:00 05/07/24 08:26 Insulin Aspart Per Unit Charge SC 06/04/24 20:59 Not Given ACHS NIKKI Lorazepam 0.5 mg 05/06/24 08:05 05/06/24 08:55 Lorazepam 2 Mg/1 Ml Vial IV 06/05/24 08:04 0.5 mg Q8H PRN Administration Anxiety/Agitation Metoprolol Tartrate 25 mg 05/06/24 21:00 05/07/24 09:41 Metoprolol Tartrate 25 Mg Tab PO 06/05/24 20:59 25 mg BID NIKKI Administration Mirtazapine 7.5 mg 05/05/24 21:00 05/06/24 20:19 Mirtazapine Tab 15 Mg Tab PO 06/04/24 20:59 7.5 mg HS NIKKI Administration Miscellaneous 1 each 05/06/24 00:00 05/07/24 08:26 Varenicline 0.5 Mg Tablet - Order Awaiting Action N/A 06/05/24 00:00 Not Given QS NIKKI Vitamin B Complex/Folic Acid 1 cap 05/06/24 09:00 05/07/24 09:13 Nephrocaps PO 06/05/24 08:59 1 cap DAILY NIKKI Administration (2) Abdominal pain Abdominal location: right upper quadrant Qualified Code(s): R10.11 - Right upper quadrant pain (3) Episode of syncope Syncope type: unspecified Qualified Code(s): R55 - Syncope and collapse (4) Chest pain Chest pain type: unspecified Qualified Code(s): R07.9 - Chest pain, unspecified
[2024-05-07] MEDS: LIDOCAINE 1% LOCAL 20 ML VIAL ONE (16:01)
[2024-05-07] MEDS: PHENYLEPHRINE 100MCG/ML 5ML SYR ONE (16:06)
[2024-05-07] MEDS: HYDROmorphone INJ 0.5 MG/0.5 ML SYR IV PRN (16:13)
--- NOTE | 2024-05-07 22:35 | Cardiac Catheterization ---
[facility] Data: Mail Clerks Supervisor Cardiac Status Clinical evaluation leading to the procedure CAD Presenation: Non STEMI Anginal Classification: CCS IV Diagnostic Physicians Name: Daljit Britton MD Closure Device Recommendations: PCI without planned CABG Cardiac Cath Procedure Full Procedure Date May 07, 2024 Pre-Procedure Diagnosis Pre-Procedure Diagnosis: Acute Coronary Syndrome and Cardiomyopathy AUC Score AUC Score: 7 Post-Procedure Diagnosis Post-Procedure Diagnosis: Severe CAD, Successful PCI and Normal Intracardiac Pressures Procedure(s) Performed Procedure(s) Performed: Coronary Angiography, Left Heart Cath, Drug Eluting Stent and Procedure (Intravascular lithotripsy) Substance Abuse Counselor Daljit Britton MD Paper Tube Machine Operator(s) Deja Estimated Blood Loss Estimated Blood Loss: 50 Medication(s) Medication(s): Clopidogrel, Fentanyl, Heparin, Lidocaine 1%, Nicardipine, Nitroglycerin and Versed Summary of Findings Indication: Suspected ACS, new LV dysfunction with apical wall motion abnormality Access: 7 Fr right common femoral artery under ultrasound guidance Catheters: JL 4, JR4. 6 Fr JR4, 7 Fr JR4 Findings: LM -normal caliber, luminal irregularities LAD - Calcified, 100% mid LAD occlusion with left to left and right to left shai aterals. D1 100% occluded at ostium and partially fills in mid segment via left to left collaterals. Circumflex -medium caliber, proximal luminal irregularities, 40% mid segment stenosis, large OM 2 without significant disease. RCA -dominant, large caliber, proximal/mid segment luminal irregularities. 95% disease distal stenosis extending across takeoff of PDA into right posterior view branch. 98% calcified ostial medium caliber RPDA. Large right PLB without significant disease. LVEDP -17 -- PCI -- Antithrombotic therapy: Heparin, clopidogrel Procedure: RCA cannulated with 6 Fr JR4 guide Pre-procedure flow AIDA 23 Substitute Crossing Guard 50 wire passed across lesion into distal right PLB Whisper wire navigated across ostial PDA stenosis into distal vessel Distal RCAPAV lesion predilated with 2.5 compliant balloon Proximal PDA dilated with 2.5 and 3.0 balloons Kissing balloon inflation of PDA/PAV bifurcation with 2.5 (PAV) and 3.0 (PDA) balloons. Despite use of GuideLiner unable to pass stents across PDA ostium Ostium of PDA further dilated with additional 2.5 compliant and 3.0 NC balloons. Still unable to pass stent across RPDA ostium Attempt made to further dilate PDA ostium with shockwave intravascular lithotripsy. Distal RCA treated with IVL 2.5 balloon (60 pulses) but still unable to pass balloon across PDA ostium. Wires removed. 6 Fr guide exchanged for 7 Fr AL-1 guide RPDA rewired with commercial airplane pilot 50 wire. 6 Fr GuideLiner placed to distal RCA RPDA again predilated with 3.0 NC balloon but unable to pass 3.0 shockwave pathologist assistant 50 wire exchanged for long mailman wire Still unable to pass IVL balloon or short 2.5 Darvin stent. Decision made to stent distal RCA into right posterior view branch 7 Fr GuideLiner placed 3.5 x 26 mm Wheelwright stent passed across distal RCA stenosis RPDA rewired with commercial airplane pilot 50 wire, mailman removed Stent post-dilated with 4.0 noncompliant balloon IC vasodilators administered for spasm Post procedure brisk AIDA 3 flow with good collateral flow, stent well expanded with minimal residual stenosis. Residual severe ostial stenosis of RPDA but AIDA-3 flow. No apparent cardiac complications. Arterial Closure: StarClose Summary: 1. Severe multivessel vessel coronary artery disease -100% mid LAD total occlusion. Distal vessel fills via left to left and right to left collaterals D1 100% ostial occlusion. Partially fills via left to left collaterals. Calcified bifurcation lesion with 95% distal RCA into PAV and 98% ostial RPDA 2. Normal intracardiac filling pressure 3. Successful PCI of distal RCA into right posterior AV branch with single drug- eluting stent (3.5 x 26 mm Wheelwright; postdilated with 4.0 NC) -Angioplasty of ostial RPDA prior to stenting with multiple balloons up to 3.0 NC and attempted intravascular lithotripsy but unable to pass stent across calcified ostium. Post procedure jailed PDA with severe residual ostial stenosis but AIDA-3 flow. Recommendations: To PCU for continued monitoring Loaded with clopidogrel 600 mg in Mail Clerks Supervisor Continue dual-antiplatelet therapy for at least 1 year Continue statin, and ASCVD risk factor modification Consult cardiac Rehab Hemodynamics Rest Ao:: 122/68/96 Final Ao: 92/56 or 73 LV: 123/17 Recommendations Recommendations: PCI without planned CABG Specimens Specimens: None Radiation Exposure (mGy) 7832 Contrast (mls) 155 Anesthesia Moderate 3531-5134 Procedural Complication(s) None Disposition PCU I attest to the content of the Intraoperative Record and any orders documented therein. Any exceptions are noted below. [facility] Card Cath Procedure Codes Cardiac Catheterization Procedure 1: Cardiovascular Cath Procedures: 76994 Coronaries and LHC (+/-LV) Therapeutic Services & Ancillary Procedure 1: Cardiovascular Tx and Anc Procedures: 12065 Ultrasonic Guidance Vascular Access Moderate Sedation Procedure 1: Sedation/Anesthesia: 14125 Mod Sedation by the same physician;Init15 Min Child Age 5 & Up Procedure 2: Sedation/Anesthesia: 84696 Mod Sedation by the same physician; Ea [id number] Minutes Stenting Procedure 1: Cardiovascular Stent Procedures: 87143 Perc transcatheter placement of intracoronary stent(s), with ang PG Care Time/CCT Total # of Minutes Spent Total Time Spent with Patient: Total time spent is greater than 50% in coordination of care (as documented) at patient's floor/unit and/or counseling patient:
[2024-05-08] MEDS: CLOPIDOGREL BISULFATE 75 MG TAB PO SCH (08:02)
[2024-05-08] MEDS: LORazepam 0.5 MG TAB PO STA (08:28)
[2024-05-08] MEDS ORDERED: EPOETIN ALFA 20,000 UNITS in SYRINGE 0 ML IV SCH (08:45)
--- NOTE | 2024-05-08 09:47 | Gastroenterology Progress Note ---
Date of Service May 08, 2024 Assessment & Plan (1) Symptomatic anemia: Plan: 38 year old female with history of T2DM, focal segmental glomerulosclerosis w/ end-stage renal disease on hemodialysis, history of acute thrombosis of brachiocephalic vein, hypertension, cardiomegaly, GERD, restless leg syndrome, history of chest pains, history of syncope and collapse, history of migraine, history of anemia, history of transplant rejection admitted with chest pain and rectal bleeding. S/P cardiac catheterization yesterday w/ severe multivessel vessel coronary artery disease, 100% mid LAD total occlusion, 100% ostial occlusion s/p PCI of distal RCA w/ ARIEL. Given her cardiac status, conservative measures. Trend HGB. Monitor and document GI output. Transfuse PRN. Avoid constipation/straining. Timing of colonoscopy TBD based on clinical picture. She should follow up with her [facility] GI team at time of discharge to discuss arrange an OP colonoscopy. Referral to colorectal for hemorrhoidectomy evaluation. Thank you for allowing us to participate in the care of this patient. Please call with any acute changes, questions or concerns. Please see addendum below with additional recommendation from my supervising physician. I spent a total of 40 minutes on the date of service in review of patient's record, and previously obtained information in person and appropriate medical visit, discussion and education of plan, with patient and/or caregiver, placing orders for tests/referral/procedures as medically necessary and documentation of pertinent clinical information in patient's medical records for their visit today. Admission and Anticipated Discharge Date Admission Date: May 05, 2024 Supervising Physician Co-Signing Physician Notes Patient seen and examined. Case discussedd with Familia LINDSAY. Patient with significant CAD. She states she has had no further vomiting or BMs and remains hemodynamically stable. Obviously in light of severe, newly treated CAD would hold off on any elective endoscopic studies. Ideally from GI perspective would not be on anticoagulants but not practical given her cardiac issues and must continue. If bleeds acutely would favor CTA and possible IR intervention. Otherwise can have an OP more elective endoscopic evaluation once it is safer to temporarily take her off of anticoagulants. IP GI Service will sign off. Please recall if further issues. Subjective Pt was seen and evaluated, chart reviewed. She is drowsy, seen in dialysis unit. S/P cardiac catheterization yesterday w/ severe multivessel vessel coronary artery disease, 100% mid LAD total occlusion, 100% ostial occlusion s/p PCI of distal RCA w/ ARIEL. Offers no GI concerns. Review of Systems Review of Systems: Other Unable to obtain - pt drowsy just received a benzodiazepine prior to dialysis. Physical Exam Constitutional: WD/WN, vitals as above Respiratory: normal respiratory effort, lungs clear to auscultation Cardiovascular: Rate/Rhythm: regular rate and regular rhythm Gastrointestinal (Abdomen): normal bowel sounds, soft, nontender, no hepatosplenomegaly Skin: no rashes, warm and dry Results & Data Results & Data Vital Signs (Past 12 Hours) Vital Signs Temp Pulse Pulse Resp BP Pulse Ox O2 Del Method 05/08/24 07:21 37.4 C 82 18 113/75 98 Room Air 05/08/24 03:12 36.8 C 84 18 107/73 94 Room Air 05/07/24 23:12 77 05/07/24 22:41 36.7 C 78 18 111/72 97 Room Air Laboratory Results 05/08/24 05/07/24 05/07/24 Range/Units 07:13 20:03 15:26 Activ Coag Time Kaolin (94-140) SECONDS POC Glucose 135 H 166 H 109 H (70-99) mg/dl 05/07/24 05/07/24 05/07/24 Range/Units 13:21 12:49 12:30 Activ Coag Time Kaolin 250 H 287 H 238 H (94-140) SECONDS POC Glucose (70-99) mg/dl 05/07/24 Range/Units 12:04 Activ Coag Time Kaolin 232 H (94-140) SECONDS POC Glucose (70-99) mg/dl PG Care Time/CCT Total # of Minutes Spent Total Time Spent with Patient: Total time spent is greater than 50% in coordination of care (as documented) at patient's floor/unit and/or counseling patient: Coding Level of Care Code 96746 SUB INP/OBS CARE 2/35MIN Diagnoses Symptomatic anemia D64.9
[2024-05-08 10:02] LABS: Hematocrit (blood only) 23.5 % (37.0-47.0); Hemoglobin 7.9 g/dl (12.0-16.0); Mean Corpuscular Hemoglobin 31.7 pg (25.0-34.0); Mean Corpuscular Hgb Conc 33.6 g/dL (32.0-36.0); Mean Corpuscular Volume 94.4 fL (80.0-100.0); Mean Platelet Volume 10.6 fL (9.4-12.4); Platelet Count 180 K/uL (130-400); RDW Coefficient of Variation 16.7 % (11.5-14.5); RDW Standard Deviation 57.7 fL (36.4-46.3); Red Blood Count 2.49 M/uL (4.20-5.40); White Blood Count 7.04 K/ul (4.8-10.8)
[2024-05-08 10:23] LABS: BUN Creatinine Ratio 7.6 (10-20); Calcium 8.3 mg/dl (8.6-10.3); Creatinine Clr Calc Pharmacy 9.3 ml/min; Est GFR (African American) 6.1 ml/min; Est GFR (Non-African American) 5.3 ml/min; Potassium 4.1 mmol/L (3.5-5.1)
[2024-05-08] MEDS: EPOETIN ALFA 20,000 UNITS/ML VIAL IV SCH (12:03)
--- NOTE | 2024-05-08 13:18 | Electrocardiogram Report ---
Test Reason : Blood Pressure : */* mmHG Vent. Rate : 74 BPM Atrial Rate : 74 BPM P-R Int : 162 ms QRS Dur : 114 ms QT Int : 464 ms P-R-T Axes : 34 -29 36 degrees QTcB Int : 515 ms Normal sinus rhythm Moderate voltage criteria for LVH, may be normal variant ( R in aVL ) Cannot rule out Inferior infarct , age undetermined Anterolateral infarct (cited on or before 21-Mar-2018) Prolonged QT Abnormal ECG When compared with ECG of 07-May-2024 04:06, ST elevation now present in Anterior leads Nonspecific T wave abnormality has replaced inverted T waves in Inferior leads Confirmed by Dash Tejada ([id number]) on 05/08/2024 1:17:50 PM Referred By: REFERRED SELF Confirmed By: Dash Tejada
--- NOTE | 2024-05-08 14:30 | Cardiology Progress Note ---
Date of Service May 08, 2024 Assessment & Plan (1) Chest pain: (2) Elevated troponin: (3) ESRD on dialysis: (4) Non-compliance: (5) Rectal bleeding: (6) Anemia: Plan Assessment: 38 year old medically complex female presents with ongoing episodes of chest pain in the setting of multiple missed HD treatments, as well as rectal bleeding. Multiple recent hospitalizations for similar concerns with poor interval in between to pursue OP work up. New echocardiogram today showing acute change in wall motion. Cardiology requested for further evaluation. Plan: 1. Chest pain: 2. Elevated Troponin: -patient with multiple recent admissions for chest pain episodes, typically consistent with missed HD treatments and volume overload. -Troponin with chronic elevation difficult in the setting of ESRD. -EKG with no acute ST-T wave changes. Suggestion of prior infarct. -No ectopy or arrhythmia noted on telemetry. -Echocardiogram obtained today shows reduction in LVEF to 35-40%, previously 50- 55% (04/20/24) and severe hypokinesis to akinesis of the apex and hypokinesis of the mid septal and inferior wall. When this was compared with her most recent study dates 04/20/24, LAD distribution wall motion abnormalities are new. -Discussed findings with patient and recommendation for consideration for cardiac cath. Patient is in agreement to proceed. -patient is currently receiving HD treatments and will likely not complete until later this afternoon. Will discuss case with Dr. Posada for guidance on plan for invasive study. -will await post HD report for fluid balance. -Will make patient NPO after midnight if able to proceed. 3. ESRD on dialysis 4. Non-compliance -History of FSGS and failed renal transplant on HD therapy 3x per week. -Known non-compliance and frequently missed treatments. Last treatment (prior to today) was Saturday05/01/24. -Continued management per primary team and Nephrology. 5. Rectal bleeding 6. Anemia -Known history of bleeding hemorrhoids. was seen last week inpatient with recommendation for OP colo-rectal referral for further treatment or intervention. -Continued management per primary team. 05/07/2024 38-year-old female with cardiac history notable for recent hospitalization for chest pain with recurrent chest pain resulting in admission. Patient acutely ill on presentation with echocardiogram demonstrating new cardiomyopathy with apical wall motion abnormality, ischemic versus stress mediated. Patient has undergone dialysis and transfusion Symptoms much improved following administration of beta-pool. Previously on carvedilol but discontinued due to labile blood pressures Plan: Coronary angiography today to exclude obstructive coronary disease Continue metoprolol titrate as ordered Further recommendations following diagnostic imaging 05/08/2024 Clinically improved today findings are as noted significant multivessel coronary disease on coronary angiography status post urgent coronary invention distal right coronary artery. Residual WEDGER of the left anterior descending Plan: Dual antiplatelet therapy minimum of 6 months discussed in detail with Will review possibility of trial and intervention the left anterior sending with interventionalists [facility] Continue beta-pool, will change to metoprolol succinate given LV dysfunction 25 mg twice per day Admission and Anticipated Discharge Date Admission Date: May 05, 2024 Subjective Patient seen and personally examined. On dialysis at time of exam. Received sedation with patient drowsy Denies further chest pain or discomfort no hypoxia and oxygenating well. Tolerating dialysis hemodynamic No bradycardia arrhythmias or tachyarrhythmias on telemetry Patient underwent diagnostic coronary angiography yesterday demonstrating significant coronary artery disease with critical lesion distal right coronary artery, occlusion of the left anterior descending Patient with ongoing chest pain underwent urgent intervention right coronary artery Post procedure tolerated well Chest pain which improved today. Slept during dialysis due to sedation but no acute complaints. Right groin access site healing well Review of Systems Review of Systems: All systems reviewed & are unremarkable except as noted in Subjective Physical Exam Constitutional: + overweight; no acute distress Eyes: PERRL, conjunctivae normal, anicteric sclerae Neck: normal visual inspection and trachea midline Respiratory: no respiratory distress, no labored breathing, no retractions and no cough Auscultation: + diminished lung sounds (bilateral bases ); no crackles, no rales and no rhonchi Cardiovascular: Rate/Rhythm: regular rate and regular rhythm Heart Sounds: normal S1 and normal S2; no murmur Vessels: femoral pulses present Extremities: + AV fistula (Bilateral arms brachial); no edema Gastrointestinal (Abdomen): normal bowel sounds, soft, nontender, no hepatospl enomegaly Skin: no rashes, warm and dry (bilateral upper extremity fistulas ) Psychiatric: Orientation: oriented x 3; + not alert (drowsy) Eye Contact: good eye contact Affect: euthymic affect Results & Data Vital Signs (Past 12 Hours) Vital Signs Temp Pulse Pulse Resp BP BP Pulse Ox 05/08/24 12:54 36.5 C 75 16 127/83 93 05/08/24 12:20 36.5 C 74 108/81 05/08/24 12:00 67 96/57 L 05/08/24 11:30 70 107/60 05/08/24 11:00 69 125/75 05/08/24 10:30 69 121/72 05/08/24 10:00 65 105/56 L 05/08/24 09:30 72 108/75 05/08/24 09:02 36.5 C 75 05/08/24 07:21 37.4 C 82 18 113/75 98 05/08/24 03:12 36.8 C 84 18 107/73 94 O2 Del Method 05/08/24 12:54 Room Air 05/08/24 12:20 05/08/24 12:00 05/08/24 11:30 05/08/24 11:00 05/08/24 10:30 05/08/24 10:00 05/08/24 09:30 05/08/24 09:02 05/08/24 07:21 Room Air 05/08/24 03:12 Room Air Laboratory Results Laboratory Results - last 24 hr 05/07/24 05/07/24 05/08/24 15:26 20:03 07:13 WBC RBC Hgb Hct MCV MCH MCHC RDW Std Deviation RDW Coeff of Laith Plt Count MPV Sodium Potassium Chloride Carbon Dioxide Anion Gap BUN Creatinine Est Cr Clr Drug Dosing Est GFR ( Amer) Est GFR (Non-Af Amer) BUN/Creatinine Ratio Glucose POC Glucose 109 H 166 H 135 H Calcium 05/08/24 05/08/24 09:46 12:51 WBC 7.04 RBC 2.49 L Hgb 7.9 L Hct 23.5 L MCV 94.4 MCH 31.7 MCHC 33.6 RDW Std Deviation 57.7 H RDW Coeff of Laith 16.7 H Plt Count 180 MPV 10.6 Sodium 130 L Potassium 4.1 Chloride 89 L Carbon Dioxide 24 Anion Gap 17 H BUN 66 H D Creatinine 8.66 H* D Est Cr Clr Drug Dosing 9.3 Est GFR ( Amer) 6.1 Est GFR (Non-Af Amer) 5.3 BUN/Creatinine Ratio 7.6 L Glucose 207 H POC Glucose 103 H Calcium 8.3 L (1) Chest pain Chest pain type: unspecified Qualified Code(s): R07.9 - Chest pain, unspecified (6) Anemia Anemia type: unspecified type Qualified Code(s): D64.9 - Anemia, unspecified
--- NOTE | 2024-05-08 16:04 | Hospitalist Progress Note ---
Date of Service May 08, 2024 Assessment & Plan (1) Rectal bleeding: (2) Abdominal pain: (3) Episode of syncope: (4) Chest pain: Plan Ms. Alexandra Arguello is a 38y/o F with PMHx of diet-controlled DM type II, ESRD on hemodialysis, history of acute thrombosis of brachiocephalic vein, HTN, cardiomegaly, GERD, restless leg syndrome, history of chest pains, history of syncope and collapse, history of migraine, history of anemia [baseline Hgb ~9- 11], history of transplant rejection, history of depression with anxiety, bipolar disorder and other problems listed below who presented to the ED via EMS for evaluation of multiple complaints. She was recently admitted 04/29/24-04/30/24 for evaluation of chest pain. Plan at that time was for her to undergo Lexiscan nuclear stress testing as outpatient Patient's course complicated by abnormal echo iso chest pain, cardiology co nsulted with plans for LHC. Patient underwent LHC on 05/07 with placement of stent in rPDA. Patient also with anemia, hgb down to 7.5 prompting transfusion of 1 UPRBC on 05/06. Patient with robust response to unit administered. GI following and notes that anemia warrants further investigation, however, deferred as cardiac issues addressed. Continue transfusion goal for hgb goal >8.0 iso CAD/vasculopathy Patient will need to remain admitted until Saturday for HD as patient will not be able to attend on Saturday due to mandatory obligation #NSTEMI #Obstructive Coronary artery disease s/p ARIEL rPDA 05/07 #Severe Coronary artery disease #Syncopal Episode #Atypical chest pain #New Heart failure with reduced EF 35-40% likely 2/2 Ischemic cardiomyopathy patient with multiple syncopal episodes, ECHO with reduced EF and new wall motion abnormalities patient with recurrent episodes of chest pain, but EKG negative of acute changes ECHO with severe hypokinesis of apex and midseptal/inferior wall patient s/p LHC on 05/07 with stent to rPDA Follow cardiology recommendations for optimization/GDMT -continue metoprolol tartrate BID for now -ASA and plavix -continue statin #Acute on chronic anemia, c/f blood loss iso ?hemorrhoidal bleed #Abdominal Pain: Hgb 8 on admission, baseline Hgb ~9-11 per chart review. CTAP without contributing findings Hgb goal >8.0 iso new cardiac concerns transfuse PRN. GI evaluated, would warrant C-scope however, will defer given cardiac concerns Iron 32, tibc 201, ferritin elevated Defer to Nephrology for further optimization IV PPI BID. Patient s/p 1 U PRBC 05/06 with robust response, goal hgb remains >8.0 Concern with continued GIB iso DAPT GI following, will appreciate continued recommendations -Will need OP follow up with GI and CRS Repeat CBC in am #Asthma: Stable, continue home meds. #DM Type II: No home agents, diet-controlled. SSI while inpatient, BSG checks ACHS. Hgb A1c was 5.6% on 04/20/24. #Hyperkalemia #ESRD on Hemodialysis: Follows w/ Dr. Leah Nieves. HD on MWF HD per nephrology #Chronic Thrombocytopenia: Plt count stable at 129 today. Follow daily w/ AM labs. Other Chronic Medical Conditions: Depression w/ anxiety, bipolar disorder --> Can continue home medications for these specific conditions. DVT Prophylaxis: SCDs/TEDs for now ISO rectal bleeding. Code Status: FULL CODE PCP: Adolph Aldridge MD Disposition: Admit to Med/Surg + Telemetry Admission and Anticipated Discharge Date Admission Date: May 05, 2024 Subjective NAEO denies any residual pain Reports no further bleeding episodes Physical Exam Constitutional: WD/WN, vitals as above Respiratory: normal respiratory effort, lungs clear to auscultation Cardiovascular: RRR, no murmur, no edema Results & Data Results & Data Vital Signs (Past 12 Hours) Vital Signs Temp Pulse Pulse Resp BP BP Pulse Ox 05/08/24 15:40 77 05/08/24 15:10 36.5 C 79 16 95/63 L 93 05/08/24 12:54 36.5 C 75 16 127/83 93 05/08/24 12:20 36.5 C 74 108/81 05/08/24 12:00 67 96/57 L 05/08/24 11:30 70 107/60 05/08/24 11:00 69 125/75 05/08/24 10:30 69 121/72 05/08/24 10:00 65 105/56 L 05/08/24 09:30 72 108/75 05/08/24 09:02 36.5 C 75 05/08/24 07:21 37.4 C 82 18 113/75 98 O2 Del Method 05/08/24 15:40 05/08/24 15:10 Room Air 05/08/24 12:54 Room Air 05/08/24 12:20 05/08/24 12:00 05/08/24 11:30 05/08/24 11:00 05/08/24 10:30 05/08/24 10:00 05/08/24 09:30 05/08/24 09:02 05/08/24 07:21 Room Air Laboratory Results Short CBC 05/08/24 Range/Units 09:46 WBC 7.04 (4.8-10.8) K/ul Hgb 7.9 L (12.0-16.0) g/dl Hct 23.5 L (37.0-47.0) % Plt Count 180 (130-400) K/uL BMP 05/08/24 09:46 Sodium 130 L Potassium 4.1 Chloride 89 L Carbon Dioxide 24 BUN 66 H D Creatinine 8.66 H* D Glucose 207 H Calcium 8.3 L Medications Administered Home Medications Medication Instructions Recorded Confirmed Last Taken albuterol sulfate 2.5 mg/3 mL 2.5 mg inhalation Q4H PRN 06/08/23 05/05/24 Unknown (0.083 %) solution for nebulization Shortness Of Breath Or Wheezing albuterol sulfate 90 mcg/actuation 2 puff inhalation Q6H PRN 06/08/23 05/05/24 Unknown aerosol inhaler Shortness Of Breath Or Wheezing carbamazepine 200 mg tablet 200 mg PO AMPM 06/08/23 05/05/24 04/17/24 gabapentin 400 mg capsule 400 mg PO TID 06/08/23 05/05/24 04/17/24 hydroxyzine HCl 25 mg tablet 25 mg PO Q6H PRN Anxiety 06/08/23 05/05/24 Unknown lorazepam 0.5 mg tablet 0.5 mg PO Q8 PRN Anxiety 06/08/23 05/05/24 Unknown mometasone-formoterol HFA 200 2 puff inhalation BID 06/08/23 05/05/24 04/17/24 mcg-5 mcg/actuation aerosol inhaler (Dulera) omeprazole 20 mg capsule,delayed 20 mg PO DAILYBB 06/08/23 05/05/2404/17/24 release vitamin B complex-vitamin C-folic 1 tab PO DAILY 06/08/23 05/05/24 04/17/24 acid 0.8 mg tablet (Renal-Rika) benzonatate 100 mg capsule 200 mg PO TID PRN Cough 08/29/23 05/05/24 Unknown calcium acetate(phosphat bind) 667 2,001 mg PO UD 08/29/23 05/05/24 04/17/24 mg capsule cinacalcet 90 mg tablet 90 mg PO QDD 08/29/23 05/05/24 04/16/24 medroxyprogesterone 150 mg/mL 150 mg IM UD 08/29/23 05/05/24 Unknown intramuscular suspension (Depo-Provera) hydrocortisone 1 %-pramoxine 1 % 1 applic [place] QID PRN itching #10 04/11/24 05/05/24 Unknown rectal foam (Proctofoam HC) grams lidocaine 5 % topical ointment 1 applic topical QID PRN pain #30 04/11/24 05/05/24 Unknown grams bupropion HCl 150 mg 24 hr tablet, 150 mg PO QAM 04/17/24 05/05/24 04/17/24 extended release mirtazapine 7.5 mg tablet 7.5 mg PO HS 04/17/24 05/05/24 04/16/24 varenicline 0.5 mg tablet 0.5 mg PO DAILY #30 tabs 04/30/24 05/05/24 Unknown Active Medications Generic Name Dose Route Start Last Admin Trade Name Freq PRN Reason Stop Dose Admin Acetaminophen 650 mg 05/05/24 21:22 05/06/24 20:17 Acetaminophen 325 Mg Tab PO 06/04/24 21:21 650 mg Q6H PRN Administration Pain or Fever Aspirin 81 mg 05/06/24 13:30 05/08/24 08:03 Aspirin 81 Mg Ectab PO 06/05/24 13:29 81 mg QAM NIKKI Administration Bupropion HCl 150 mg 05/06/24 09:00 05/08/24 08:02 Bupropion Xl 150 Mg Tabcr PO 06/05/24 08:59 150 mg QAM NIKKI Administration Calcium Acetate 2,001 mg 05/06/24 07:30 05/08/24 12:52 Calcium Acetate 667 Mg Cap/Tab PO 06/05/24 07:29 Not Given AC NIKKI Carbamazepine 200 mg 05/05/24 21:00 05/08/24 08:01 Carbamazepine 200 Mg Tablet PO 06/04/24 20:59 200 mg BID NIKKI Administration Cinacalcet 90 mg 05/06/24 16:30 05/07/24 18:11 Cinacalcet Hcl 90 Mg Tab PO 06/05/24 16:29 Not Given QDD NIKKI Clopidogrel Bisulfate 75 mg 05/08/24 09:00 05/08/24 08:02 Clopidogrel Bisulfate 75 Mg Tab PO 06/07/24 08:59 75 mg QAM NIKKI Administration Fluticasone/Vilanterol 1 puffs 05/06/24 09:00 05/08/24 08:04 Fluticasone/Vilanterol 200/25mcg 14 Puffs/Inhaler INH 06/05/24 08:59 Not Given DAILY NIKKI Gabapentin 400 mg 05/05/24 21:00 05/08/24 14:29 Gabapentin 400 Mg Cap PO 06/04/24 20:59 400 mg TID NIKKI Administration Hydromorphone HCl 0.5 mg 05/07/24 16:06 05/08/24 14:31 Hydromorphone Inj 0.5 Mg/0.5 Ml Syr IV 05/21/24 16:05 0.5 mg Q6H PRN Administration Severe Pain (Scale 7, 8, 9,10) Hydroxyzine HCl 25 mg 05/05/24 20:19 05/08/24 08:16 Hydroxyzine Hcl 25 Mg Tab PO 06/04/24 20:18 25 mg Q6H PRN Administration Anxiety Pantoprazole Sodium 40 mg/ 10 mls @ 5 mls/min 05/05/24 21:00 05/08/24 08:34 Syringe IV 06/04/24 20:59 5 mls/min BID NIKKI Administration Promethazine HCl 6.25 mg in 50.25 mls @ 201 mls/hr 05/05/24 20:19 05/06/24 18:43 Phenergan IV 06/04/24 20:18 Infused Q6H PRN Infusion Nausea And Vomiting Insulin Aspart 0 units 05/05/24 21:00 05/08/24 12:53 Insulin Aspart Per Unit Charge SC 06/04/24 20:59 Not Given ACHS NIKKI Lorazepam 0.5 mg 05/06/24 08:05 05/06/24 08:55 Lorazepam 2 Mg/1 Ml Vial IV 06/05/24 08:04 0.5 mg Q8H PRN Administration Anxiety/Agitation Mirtazapine 7.5 mg 05/05/24 21:00 05/07/24 22:14 Mirtazapine Tab 15 Mg Tab PO 06/04/24 20:59 7.5 mg HS NIKKI Administration Miscellaneous 1 each 05/06/24 00:00 05/08/24 14:59 Varenicline 0.5 Mg Tablet - Order Awaiting Action N/A 06/05/24 00:00 Not Given QS NIKKI Vitamin B Complex/Folic Acid 1 cap 05/06/24 09:00 05/08/24 08:02 Nephrocaps PO 06/05/24 08:59 1 cap DAILY NIKKI Administration (2) Abdominal pain Abdominal location: right upper quadrant Qualified Code(s): R10.11 - Right upper quadrant pain (3) Episode of syncope Syncope type: unspecified Qualified Code(s): R55 - Syncope and collapse (4) Chest pain Chest pain type: unspecified Qualified Code(s): R07.9 - Chest pain, unspecified
[2024-05-08] MEDS: POLYETHYLENE (MIRALAX) 17 GM PACK PO SCH (17:09)
--- NOTE | 2024-05-08 18:16 | Dialysis Progress Note ---
Date of Service May 08, 2024 Assessment & Plan (1) ESRD on dialysis: Plan: missed her 05/04 treatment; marked volume overload and tolerated for aggressive UF 05/06 to 5L; on 05/08 (today) signed off early and only 2L off -evaluate for tx needs daily but anticipate next tx on 05/10 >> she has a court date on 05/11 and essentially refuses to arrange alternate treatment time later that day; I did call clinic and chair is available/set aside for her; pt did d/w hospitalist and refuses this plan; concern she will bounce back here if no alternate arrangement made -AVF w/o issues -anuric/no bp meds except BB which is appropriate -cont 1.5L FR Care coordinated w/ Dr Juan mullen workaround plans for HD given pt court date; we are in agreement. (2) Chest pain: Plan: case d/w Dr Posada cardiology (see c/s note) ; as per cardiology (3) Bleeding external hemorrhoids: Plan: OP f/u recommended for hemorrhoids; avoid constipation/strains >>NB pt has 1.5L fluid limit w/ her dialysis diet (should really be 1.2 L); will need to balance ESRD FR w/ need for fiber/fluid intake >s/p pRBC 1 unit 05/06 and hgb 7.5 > 10.8 (some of low hgb was dilutional) Admission and Anticipated Discharge Date Admission Date: May 05, 2024 Subjective s/p stent at cath yesterday and also w/ diffuse severe multivessel dz including 100% LAD; no further chest pain, not SOB. seen on HD during HD tx. Review of Systems 2 Review of Systems: All systems reviewed & are unremarkable except as noted in Subjective Physical Exam 2 Constitutional: well developed, well nourished, cooperative and + lethargic (s/p medication; wakens fully); no acute distress ENMT: Mouth: + dry oral mucous membranes Respiratory: normal respiratory effort Auscultation: + diminished lung sounds Cardiovascular: Rate/Rhythm: regular rate and regular rhythm Heart Sounds: + murmur Extremities: + AV fistula; no edema Results & Data Vital Signs (Past 12 Hours) Vital Signs Temp Pulse Pulse Resp BP BP Pulse Ox 05/08/24 15:40 77 05/08/24 15:10 36.5 C 79 16 95/63 L 93 05/08/24 12:54 36.5 C 75 16 127/83 93 05/08/24 12:20 36.5 C 74 108/81 05/08/24 12:00 67 96/57 L 05/08/24 11:30 70 107/60 05/08/24 11:00 69 125/75 05/08/24 10:30 69 121/72 05/08/24 10:00 65 105/56 L 05/08/24 09:30 72 108/75 05/08/24 09:02 36.5 C 75 05/08/24 07:21 37.4 C 82 18 113/75 98 O2 Del Method 05/08/24 15:40 05/08/24 15:10 Room Air 05/08/24 12:54 Room Air 05/08/24 12:20 05/08/24 12:00 05/08/24 11:30 05/08/24 11:00 05/08/24 10:30 05/08/24 10:00 05/08/24 09:30 05/08/24 09:02 05/08/24 07:21 Room Air Laboratory Results 05/08/24 09:46 05/08/24 09:46 (2) Chest pain Chest pain type: unspecified Qualified Code(s): R07.9 - Chest pain, unspecified
[2024-05-08] MEDS: METOPROLOL SUCC 25MG EXT REL TAB PO SCH (19:34)
[2024-05-09 06:27] LABS: Hemoglobin 9.1 g/dl (12.0-16.0); Mean Corpuscular Hemoglobin 31.7 pg (25.0-34.0); Mean Corpuscular Hgb Conc 32.5 g/dL (32.0-36.0); Mean Corpuscular Volume 97.6 fL (80.0-100.0); Mean Platelet Volume 10.1 fL (9.4-12.4); Nucleated RBC # (auto) 0.03 K/uL (0.00-0.12); Nucleated RBC % (auto) 0.5 %; Platelet Count 186 K/uL (130-400); RDW Coefficient of Variation 16.6 % (11.5-14.5); RDW Standard Deviation 58.6 fL (36.4-46.3); Red Blood Count 2.87 M/uL (4.20-5.40); White Blood Count 5.79 K/ul (4.8-10.8)
[2024-05-09 06:52] LABS: BUN Creatinine Ratio 6.3 (10-20); Calcium 8.7 mg/dl (8.6-10.3); Creatinine Clr Calc Pharmacy 14.1 ml/min; Est GFR (Non-African American) 8.6 ml/min; Potassium 4.1 mmol/L (3.5-5.1)
[2024-05-09] MEDS ORDERED: SODIUM CHLORIDE 0.9% 1,000 ML IV PRN (10:13)
--- NOTE | 2024-05-09 10:20 | Nephrology Progress Note ---
Date of Service May 09, 2024 Assessment & Plan (1) ESRD on dialysis: Plan: missed her 05/04 treatment; marked volume overload and tolerated for aggressive UF 05/06 to 5L; on 05/08 (today) signed off early and only 2L off -Will dialyse her for 3.5 hrs target UF 3.5 litres -anuric/no bp meds except BB which is appropriate -cont 1.5L FR (2) Chest pain: Plan: Continue cardiac meds (3) Bleeding external hemorrhoids: Plan: OP f/u recommended for hemorrhoids; avoid constipation/strains >>NB pt has 1.5L fluid limit w/ her dialysis diet (should really be 1.2 L); will need to balance ESRD FR w/ need for fiber/fluid intake >s/p pRBC 1 unit 05/06 and hgb 9.1 today. Will give epo 10k with HD Admission and Anticipated Discharge Date Admission Date: May 05, 2024 Subjective s/p stent at cath 05/07 found to have diffuse severe multivessel dz including 100% LAD; no further chest pain, not SOB. Review of Systems 2 Review of Systems: All other systems were reviewed and negative except as noted in HPI Physical Exam 2 Physical Exam: General exam: Appears comfortable, no acute distress HEENT: Pupils are equal and reactive to light Neck: No JVD, neck is supple trachea is midline Respiratory system: Clear breath sounds bilaterally. Gastrointestinal: Abdomen is soft, non distended, non tender, bowel sounds are present CVS: Regular rate and rhythm. No murmurs, rubs or gallops Musculoskeletal: No joint or muscle tenderness Extremities: Non tender, no edema, peripheral pulses are present Neuro: Oriented, no tremors, no focal neurological deficits Skin: No rashes Results & Data Vital Signs (Past 12 Hours) Vital Signs Temp Pulse Pulse Pulse Resp BP Pulse Ox 05/09/24 07:15 36.9 C 76 16 113/69 96 05/09/24 02:14 36.6 C 78 18 107/69 95 05/08/24 23:25 77 05/08/24 23:02 36.8 C 77 18 107/72 92 O2 Del Method 05/09/24 07:15 Room Air 05/09/24 02:14 Room Air 05/08/24 23:25 05/08/24 23:02 Room Air Laboratory Results 05/09/24 05:41 05/09/24 05:41 WBC 5.79 RBC 2.87 L MCV 97.6 MCH 31.7 MCHC 32.5 RDW Std Deviation 58.6 H RDW Coeff of Laith 16.6 H Plt Count 186 MPV 10.1 (2) Chest pain Chest pain type: unspecified Qualified Code(s): R07.9 - Chest pain, unspecified
--- NOTE | 2024-05-09 10:51 | Cardiology Progress Note ---
Date of Service May 09, 2024 Assessment & Plan (1) Chest pain: (2) Elevated troponin: (3) ESRD on dialysis: (4) Non-compliance: (5) Rectal bleeding: (6) Anemia: (7) Coronary artery disease due to calcified coronary lesion: Plan: Status post drug-eluting stent to distal right coronary artery. Residual occlusion left anterior descending Plan Assessment: 38 year old medically complex female presents with ongoing episodes of chest pain in the setting of multiple missed HD treatments, as well as rectal bleeding. Multiple recent hospitalizations for similar concerns with poor interval in between to pursue OP work up. New echocardiogram today showing acute change in wall motion. Cardiology requested for further evaluation. Plan: 1. Chest pain: 2. Elevated Troponin: -patient with multiple recent admissions for chest pain episodes, typically consistent with missed HD treatments and volume overload. -Troponin with chronic elevation difficult in the setting of ESRD. -EKG with no acute ST-T wave changes. Suggestion of prior infarct. -No ectopy or arrhythmia noted on telemetry. -Echocardiogram obtained today shows reduction in LVEF to 35-40%, previously 50- 55% (04/20/24) and severe hypokinesis to akinesis of the apex and hypokinesis of the mid septal and inferior wall. When this was compared with her most recent study dates 04/20/24, LAD distribution wall motion abnormalities are new. -Discussed findings with patient and recommendation for consideration for cardiac cath. Patient is in agreement to proceed. -patient is currently receiving HD treatments and will likely not complete until later this afternoon. Will discuss case with Dr. Posada for guidance on plan for invasive study. -will await post HD report for fluid balance. -Will make patient NPO after midnight if able to proceed. 3. ESRD on dialysis 4. Non-compliance -History of FSGS and failed renal transplant on HD therapy 3x per week. -Known non-compliance and frequently missed treatments. Last treatment (prior to today) was Saturday05/01/24. -Continued management per primary team and Nephrology. 5. Rectal bleeding 6. Anemia -Known history of bleeding hemorrhoids. was seen last week inpatient with recommendation for OP colo-rectal referral for further treatment or intervention. -Continued management per primary team. 05/07/2024 38-year-old female with cardiac history notable for recent hospitalization for chest pain with recurrent chest pain resulting in admission. Patient acutely ill on presentation with echocardiogram demonstrating new cardiomyopathy with apical wall motion abnormality, ischemic versus stress mediated. Patient has undergone dialysis and transfusion Symptoms much improved following administration of beta-pool. Previously on carvedilol but discontinued due to labile blood pressures Plan: Coronary angiography today to exclude obstructive coronary disease Continue metoprolol titrate as ordered Further recommendations following diagnostic imaging 05/08/2024 Clinically improved today findings are as noted significant multivessel coronary disease on coronary angiography status post urgent coronary invention distal right coronary artery. Residual PSYCHOLOGY TECHNICIAN of the left anterior descending Plan: Dual antiplatelet therapy minimum of 6 months discussed in detail with Will review possibility of trial and intervention the left anterior sending with interventionalists [facility] Continue beta-pool, will change to metoprolol succinate given LV dysfunction 25 mg twice per day 05/09/2024 Clinically stable and no acute cardiac complaints. 1. Acute coronary syndrome status post urgent coronary invention distal right coronary artery, residual PSYCHOLOGY TECHNICIAN left anterior descending Plan continue dual antiplatelet minimal 6 months Continue metoprolol succinate Add rosuvastatin 20 mg/day with lipid panel order in a.m. Repeat echocardiogram reassess LV function in a.m. Admission and Anticipated Discharge Date Admission Date: May 05, 2024 Subjective Patient seen and examined, chart, medications, telemetry reviewed. No cardiac complaints. Heart rate and blood pressure well-controlled. Specifically denies chest pain or worsening shortness of breath. No dizziness or lightheadedness. Review of Systems Review of Systems: All systems reviewed & are unremarkable except as noted in Subjective Physical Exam Constitutional: + overweight; no acute distress Eyes: PERRL, conjunctivae normal, anicteric sclerae Neck: normal visual inspection and trachea midline Respiratory: no respiratory distress, no labored breathing, no retractions and no cough Auscultation: + diminished lung sounds (bilateral bases ); no crackles, no rales and no rhonchi Cardiovascular: Rate/Rhythm: regular rate and regular rhythm Heart Sounds: normal S1 and normal S2; no murmur Vessels: femoral pulses present Extremities: + AV fistula (Bilateral arms brachial); no edema Gastrointestinal (Abdomen): normal bowel sounds, soft, nontender, no hepatosplenomegaly Skin: no rashes, warm and dry (bilateral upper extremity fistulas ) Psychiatric: Orientation: oriented x 3; + not alert (drowsy) Eye Contact: good eye contact Affect: euthymic affect Results & Data Vital Signs (Past 12 Hours) Vital Signs Temp Pulse Pulse Pulse Resp BP Pulse Ox 05/09/24 07:15 36.9 C 76 16 113/69 96 05/09/24 02:14 36.6 C 78 18 107/69 95 05/08/24 23:25 77 05/08/24 23:02 36.8 C 77 18 107/72 92 O2 Del Method 05/09/24 07:15 Room Air 05/09/24 02:14 Room Air 05/08/24 23:25 05/08/24 23:02 Room Air Laboratory Results Laboratory Results - last 24 hr 05/08/24 05/08/24 05/08/24 12:51 16:12 20:23 WBC RBC Hgb Hct MCV MCH MCHC RDW Std Deviation RDW Coeff of Laith Plt Count MPV Absolute Nucleated RBC Nucleated RBC % (auto) Sodium Potassium Chloride Carbon Dioxide Anion Gap BUN Creatinine Est Cr Clr Drug Dosing Est GFR ( Amer) Est GFR (Non-Af Amer) BUN/Creatinine Ratio Glucose POC Glucose 103 H 141 H 158 H Calcium 05/09/24 05/09/24 05:41 07:13 WBC 5.79 RBC 2.87 L Hgb 9.1 L Hct 28.0 L MCV 97.6 MCH 31.7 MCHC 32.5 RDW Std Deviation 58.6 H RDW Coeff of Laith 16.6 H Plt Count 186 MPV 10.1 Absolute Nucleated RBC 0.03 Nucleated RBC % (auto) 0.5 Sodium 135 L Potassium 4.1 Chloride 92 L Carbon Dioxide 27 Anion Gap 16 H BUN 36 H D Creatinine 5.74 H* D Est Cr Clr Drug Dosing 14.1 Est GFR ( Amer) 10.0 Est GFR (Non-Af Amer) 8.6 BUN/Creatinine Ratio 6.3 L Glucose 97 POC Glucose 134 H Calcium 8.7 (1) Chest pain Chest pain type: unspecified Qualified Code(s): R07.9 - Chest pain, unspecified (6) Anemia Anemia type: unspecified type Qualified Code(s): D64.9 - Anemia, unspecified
[2024-05-09] MEDS: EPOETIN ALFA 10,000 UNITS/ML VIAL IV ONE (11:53)
[2024-05-09] MEDS: HEPARIN SOD (PORCINE) 1000 UNIT/ML IV ONE (11:54)
--- NOTE | 2024-05-09 13:12 | Hospitalist Progress Note ---
Date of Service May 09, 2024 Assessment & Plan (1) Rectal bleeding: (2) Abdominal pain: (3) Episode of syncope: (4) Chest pain: Plan Ms. Alexandra Arguello is a 38y/o F with PMHx of diet-controlled DM type II, ESRD on hemodialysis, history of acute thrombosis of brachiocephalic vein, HTN, cardiomegaly, GERD, restless leg syndrome, history of chest pains, history of syncope and collapse, history of migraine, history of anemia [baseline Hgb ~9- 11], history of transplant rejection, history of depression with anxiety, bipolar disorder and other problems listed below who presented to the ED via EMS for evaluation of multiple complaints. She was recently admitted 04/29/24-04/30/24 for evaluation of chest pain. Plan at that time was for her to undergo Lexiscan nuclear stress testing as outpatient Patient's course complicated by abnormal echo iso chest pain, cardiology co nsulted with plans for LHC. Patient underwent LHC on 05/07 with placement of stent in rPDA. Patient also with anemia, hgb down to 7.5 prompting transfusion of 1 UPRBC on 05/06. Patient with robust response to unit administered. GI following and notes that anemia warrants further investigation, however, deferred as cardiac issues addressed. Continue transfusion goal for hgb goal >8.0 iso CAD/vasculopathy Patient will need to remain admitted until Saturday for HD as patient will not be able to attend on Saturday due to mandatory obligation #NSTEMI #Obstructive Coronary artery disease s/p ARIEL rPDA 05/07 #Severe Coronary artery disease #Syncopal Episode #Atypical chest pain #New Heart failure with reduced EF 35-40% likely 2/2 Ischemic cardiomyopathy patient with multiple syncopal episodes, ECHO with reduced EF and new wall motion abnormalities patient with recurrent episodes of chest pain, but EKG negative of acute changes ECHO with severe hypokinesis of apex and midseptal/inferior wall patient s/p LHC on 05/07 with stent to rPDA Follow cardiology recommendations for optimization/GDMT -Transitioned to Metoprolol Succinate BID -ASA and plavix -continue statin #Acute on chronic anemia, c/f blood loss iso ?hemorrhoidal bleed #Abdominal Pain: Hgb 8 on admission, baseline Hgb ~9-11 per chart review. CTAP without contributing findings Hgb goal >8.0 iso new cardiac concerns transfuse PRN. GI evaluated, would warrant C-scope however, will defer given cardiac concerns Iron 32, tibc 201, ferritin elevated Defer to Nephrology for further optimization IV PPI BID. Patient s/p 1 U PRBC 05/06 with robust response, goal hgb remains >8.0 Concern with continued GIB iso DAPT GI following, will appreciate continued recommendations -Will need OP follow up with GI and CRS Hgb remains stable Encouraged bowel regimen #Asthma: Stable, continue home meds. #DM Type II: No home agents, diet-controlled. SSI while inpatient, BSG checks ACHS. Hgb A1c was 5.6% on 04/20/24. #Hyperkalemia #ESRD on Hemodialysis: Follows w/ Dr. Leah Nieves. HD on MWF HD per nephrology Plan for HD on saturday the discharge #Chronic Thrombocytopenia: Plt count stable, follow daily w/ AM labs. Other Chronic Medical Conditions: Depression w/ anxiety, bipolar disorder --> Can continue home medications for these specific conditions. DVT Prophylaxis: SCDs/TEDs for now ISO rectal bleeding. Code Status: FULL CODE PCP: Adolph Aldridge MD Disposition: discharge tomorrow Admission and Anticipated Discharge Date Admission Date: May 05, 2024 Subjective NAEO Reports mild discomfort in left groin where cath performed, but otherwise no acute concerns Physical Exam Constitutional: WD/WN, vitals as above Respiratory: normal respiratory effort, lungs clear to auscultation Cardiovascular: RRR, no murmur, no edema Musculoskeletal: no cyanosis or clubbing, extremities motor strength 5/5 Results & Data Results & Data Vital Signs (Past 12 Hours) Vital Signs Temp Pulse Pulse Resp BP BP Pulse Ox 05/09/24 12:00 74 107/50 L 05/09/24 11:36 74 116/54 L 05/09/24 11:29 36.7 C 74 05/09/24 11:24 75 05/09/24 07:15 36.9 C 76 16 113/69 96 05/09/24 02:14 36.6 C 78 18 107/69 95 O2 Del Method 05/09/24 12:00 05/09/24 11:36 05/09/24 11:29 05/09/24 11:24 05/09/24 07:15 Room Air 05/09/24 02:14 Room Air Laboratory Results Short CBC 05/09/24 Range/Units 05:41 WBC 5.79 (4.8-10.8) K/ul Hgb 9.1 L (12.0-16.0) g/dl Hct 28.0 L (37.0-47.0) % Plt Count 186 (130-400) K/uL BMP 05/09/24 05:41 Sodium 135 L Potassium 4.1 Chloride 92 L Carbon Dioxide 27 BUN 36 H D Creatinine 5.74 H* D Glucose 97 Calcium 8.7 Medications Administered Home Medications Medication Instructions Recorded Confirmed Last Taken albuterol sulfate 2.5 mg/3 mL 2.5 mg inhalation Q4H PRN 06/08/23 05/05/24 Unknown (0.083 %) solution for nebulization Shortness Of Breath Or Wheezing albuterol sulfate 90 mcg/actuation 2 puff inhalation Q6H PRN 06/08/23 05/05/24 Unknown aerosol inhaler Shortness Of Breath Or Wheezing carbamazepine 200 mg tablet 200 mg PO AMPM 06/08/23 05/05/24 04/17/24 gabapentin 400 mg capsule 400 mg PO TID 06/08/23 05/05/24 04/17/24 hydroxyzine HCl 25 mg tablet 25 mg PO Q6H PRN Anxiety 06/08/23 05/05/24 Unknown lorazepam 0.5 mg tablet 0.5 mg PO Q8 PRN Anxiety 06/08/23 05/05/24 Unknown mometasone-formoterol HFA 200 2 puff inhalation BID 06/08/23 05/05/24 04/17/24 mcg-5 mcg/actuation aerosol inhaler (Dulera) omeprazole 20 mg capsule,delayed 20 mg PO DAILYBB 06/08/23 05/05/24 04/17/24 release vitamin B complex-vitamin C-folic 1 tab PO DAILY 06/08/23 05/05/24 04/17/24 acid 0.8 mg tablet (Renal-Irka) benzonatate 100 mg capsule 200 mg PO TID PRN Cough 08/29/23 05/05/24 Unknown calcium acetate(phosphat bind) 667 2,001 mg PO UD 08/29/23 05/05/24 04/17/24 mg capsule cinacalcet 90 mg tablet 90 mg PO QDD 08/29/23 05/05/24 04/16/24 medroxyprogesterone 150 mg/mL 150 mg IM UD 08/29/23 05/05/24 Unknown intramuscular suspension (Depo-Provera) hydrocortisone 1 %-pramoxine 1 % 1 applic ME QID PRN itching #10 04/11/24 05/05/24 Unknown rectal foam (Proctofoam HC) grams lidocaine 5 % topical ointment 1 applic topical QID PRN pain #30 04/11/2404/26 Unknown grams bupropion HCl 150 mg 24 hr tablet, 150 mg PO QAM 04/17/24 05/05/24 04/17/24 extended release mirtazapine 7.5 mg tablet 7.5 mg PO HS 04/17/24 05/05/24 04/16/24 varenicline 0.5 mg tablet 0.5 mg PO DAILY #30 tabs 04/30/24 05/05/24 Unknown Active Medications Generic Name Dose Route Start Last Admin Trade Name [facility] PRN Reason Stop Dose Admin Acetaminophen 650 mg 05/05/24 21:22 05/06/24 20:17 Acetaminophen 325 Mg Tab PO 06/04/24 21:21 650 mg Q6H PRN Administration Pain or Fever Aspirin 81 mg 05/06/24 13:30 05/09/24 09:10 Aspirin 81 Mg Ectab PO 06/05/24 13:29 81 mg QAM NIKKI Administration Bupropion HCl 150 mg 05/06/24 09:00 05/09/24 09:10 Bupropion Xl 150 Mg Tabcr PO 06/05/24 08:59 150 mg QAM NIKKI Administration Calcium Acetate 2,001 mg 05/06/24 07:30 05/09/24 09:10 Calcium Acetate 667 Mg Cap/Tab PO 06/05/24 07:29 2,001 mg AC NIKKI Administration Carbamazepine 200 mg 05/05/24 21:00 05/09/24 09:09 Carbamazepine 200 Mg Tablet PO 06/04/24 20:59 200 mg BID NIKKI Administration Cinacalcet 90 mg 05/06/24 16:30 05/08/24 17:09 Cinacalcet Hcl 90 Mg Tab PO 06/05/24 16:29 90 mg QDD NIKKI Administration Clopidogrel Bisulfate 75 mg 05/08/24 09:00 05/09/24 09:11 Clopidogrel Bisulfate 75 Mg Tab PO 06/07/24 08:59 75 mg QAM NIKKI Administration Fluticasone/Vilanterol 1 puffs 05/06/24 09:00 05/09/24 09:16 Fluticasone/Vilanterol 200/25mcg 14 Puffs/Inhaler INH 06/05/24 08:59 Not Given DAILY NIKKI Gabapentin 400 mg 05/05/24 21:00 05/09/24 09:08 Gabapentin 400 Mg Cap PO 06/04/24 20:59 400 mg TID NIKKI Administration Hydromorphone HCl 0.5 mg 05/07/24 16:06 05/08/24 21:06 Hydromorphone Inj 0.5 Mg/0.5 Ml Syr IV 05/21/24 16:05 0.5 mg Q6H PRN Administration Severe Pain (Scale 7, 8, 9,10) Hydroxyzine HCl 25 mg 05/05/24 20:19 05/09/24 10:53 Hydroxyzine Hcl 25 Mg Tab PO 06/04/24 20:18 25 mg Q6H PRN Administration Anxiety Pantoprazole Sodium 40 mg/ 10 mls @ 5 mls/min 05/05/24 21:00 05/09/24 10:50 Syringe IV 06/04/24 20:59 5 mls/min BID NIKKI Administration Promethazine HCl 6.25 mg in 50.25 mls @ 201 mls/hr 05/05/24 20:19 05/06/24 18:43 Phenergan IV 06/04/24 20:18 Infused Q6H PRN Infusion Nausea And Vomiting Insulin Aspart 0 units 05/05/24 21:00 05/09/24 09:08 Insulin Aspart Per Unit Charge SC 06/04/24 20:59 2 units ACHS NIKKI Administration Lorazepam 0.5 mg 05/06/24 08:05 05/06/24 08:55 Lorazepam 2 Mg/1 Ml Vial IV 06/05/24 08:04 0.5 mg Q8H PRN Administration Anxiety/Agitation Metoprolol Succinate 25 mg 05/08/24 21:00 05/09/24 09:15 Metoprolol Succ 25mg Ext Rel Tab PO 06/07/24 20:59 25 mg BID NIKKI Administration Mirtazapine 7.5 mg 05/05/24 21:00 05/08/24 20:58 Mirtazapine Tab 15 Mg Tab PO 06/04/24 20:59 7.5 mg HS NIKKI Administration Miscellaneous 1 each 05/06/24 00:00 05/09/24 10:54 Varenicline 0.5 Mg Tablet - Order Awaiting Action N/A 06/05/24 00:00 Not Given QS NIKKI Polyethylene Glycol 17 gm 05/08/24 16:15 05/09/24 09:32 Polyethylene (Miralax) 17 Gm Pack PO 06/07/24 16:14 17 gm DAILY NIKKI Administration Vitamin B Complex/Folic Acid 1 cap 05/06/24 09:00 05/09/24 09:12 Nephrocaps PO 06/05/24 08:59 1 cap DAILY NIKKI Administration (2) Abdominal pain Abdominal location: right upper quadrant Qualified Code(s): R10.11 - Right upper quadrant pain (3) Episode of syncope Syncope type: unspecified Qualified Code(s): R55 - Syncope and collapse (4) Chest pain Chest pain type: unspecified Qualified Code(s): R07.9 - Chest pain, unspecified
[2024-05-09] MEDS: HEPARIN SOD (PORCINE) 1000 UNIT/ML IV SCH (14:30)
[2024-05-10 03:25] VITALS: RESP 18
[2024-05-10] MEDS: PERFLUTREN LIPID MICROSPHERE (DEFINITY) IV ONE (06:54)
[2024-05-10 07:22] VITALS: BP 97/62
[2024-05-10] MEDS: ROSUVASTATIN CALCIUM 20 MG TAB PO SCH (07:45)
[2024-05-10 07:50] LABS: Chol HDL Ratio 5.6 (0-5)
--- NOTE | 2024-05-10 10:01 | Nephrology Progress Note ---
Date of Service May 10, 2024 Assessment & Plan (1) ESRD on dialysis: Plan: missed her 05/04 treatment; marked volume overload and tolerated for aggressive UF 05/06 to 5L; on 05/08 (today) signed off early and only 2L off -Had HD yesterday for 2 hrs target UF 2 litres -anuric/no bp meds except BB which is appropriate -cont 1.5L FR From renal standpoint she can discharged to continue dialysis outpt on Saturday (2) Chest pain: Plan: Continue cardiac meds (3) Bleeding external hemorrhoids: Plan: OP f/u recommended for hemorrhoids; avoid constipation/strains >>NB pt has 1.5L fluid limit w/ her dialysis diet (should really be 1.2 L); will need to balance ESRD FR w/ need for fiber/fluid intake >s/p pRBC 1 unit 05/06 and hgb 9.1. Will continue EMILY with HD Admission and Anticipated Discharge Date Admission Date: May 05, 2024 Subjective Seen for ESRD. She had dialysis yesterday. No shortness of breath or leg swelling. Review of Systems 2 Review of Systems: All other systems were reviewed and negative except as noted in HPI Physical Exam 2 Physical Exam: General exam: Appears comfortable, no acute distress HEENT: Pupils are equal and reactive to light Neck: No JVD, neck is supple trachea is midline Respiratory system: Clear breath sounds bilaterally. Gastrointestinal: Abdomen is soft, non distended, non tender, bowel sounds are present CVS: Regular rate and rhythm. No murmurs, rubs or gallops Musculoskeletal: No joint or muscle tenderness Extremities: Non tender, no edema, peripheral pulses are present Neuro: Oriented, no tremors, no focal neurological deficits Skin: No rashes Results & Data Vital Signs (Past 12 Hours) Vital Signs Temp Pulse Pulse Resp BP Pulse Ox O2 Del Method 05/10/24 07:21 36.7 C 72 18 97/62 L 96 Room Air 05/10/24 02:51 37.0 C 74 18 128/61 97 Room Air 05/10/24 00:59 Room Air 05/10/24 00:33 36.9 C 77 16 99/66 L 99 Room Air 05/09/24 22:00 79 Laboratory Results 05/09/24 05:41 (2) Chest pain Chest pain type: unspecified Qualified Code(s): R07.9 - Chest pain, unspecified
--- NOTE | 2024-05-10 10:59 | Cardiology Progress Note ---
Date of Service May 10, 2024 Assessment & Plan (1) Chest pain: (2) Elevated troponin: (3) ESRD on dialysis: (4) Non-compliance: (5) Rectal bleeding: (6) Anemia: (7) Coronary artery disease due to calcified coronary lesion: Plan: Status post drug-eluting stent to distal right coronary artery. Residual occlusion left anterior descending Plan Assessment: 38 year old medically complex female presents with ongoing episodes of chest pain in the setting of multiple missed HD treatments, as well as rectal bleeding. Multiple recent hospitalizations for similar concerns with poor interval in between to pursue OP work up. New echocardiogram today showing acute change in wall motion. Cardiology requested for further evaluation. Plan: 1. Chest pain: 2. Elevated Troponin: -patient with multiple recent admissions for chest pain episodes, typically consistent with missed HD treatments and volume overload. -Troponin with chronic elevation difficult in the setting of ESRD. -EKG with no acute ST-T wave changes. Suggestion of prior infarct. -No ectopy or arrhythmia noted on telemetry. -Echocardiogram obtained today shows reduction in LVEF to 35-40%, previously 50- 55% (04/20/24) and severe hypokinesis to akinesis of the apex and hypokinesis of the mid septal and inferior wall. When this was compared with her most recent study dates 04/20/24, LAD distribution wall motion abnormalities are new. -Discussed findings with patient and recommendation for consideration for cardiac cath. Patient is in agreement to proceed. -patient is currently receiving HD treatments and will likely not complete until later this afternoon. Will discuss case with Dr. Posada for guidance on plan for invasive study. -will await post HD report for fluid balance. -Will make patient NPO after midnight if able to proceed. 3. ESRD on dialysis 4. Non-compliance -History of FSGS and failed renal transplant on HD therapy 3x per week. -Known non-compliance and frequently missed treatments. Last treatment (prior to today) was Saturday05/01/24. -Continued management per primary team and Nephrology. 5. Rectal bleeding 6. Anemia -Known history of bleeding hemorrhoids. was seen last week inpatient with recommendation for OP colo-rectal referral for further treatment or intervention. -Continued management per primary team. 05/07/2024 38-year-old female with cardiac history notable for recent hospitalization for chest pain with recurrent chest pain resulting in admission. Patient acutely ill on presentation with echocardiogram demonstrating new cardiomyopathy with apical wall motion abnormality, ischemic versus stress mediated. Patient has undergone dialysis and transfusion Symptoms much improved following administration of beta-pool. Previously on carvedilol but discontinued due to labile blood pressures Plan: Coronary angiography today to exclude obstructive coronary disease Continue metoprolol titrate as ordered Further recommendations following diagnostic imaging 05/08/2024 Clinically improved today findings are as noted significant multivessel coronary disease on coronary angiography status post urgent coronary invention distal right coronary artery. Residual PICTURE HANGER of the left anterior descending Plan: Dual antiplatelet therapy minimum of 6 months discussed in detail with Will review possibility of trial and intervention the left anterior sending with interventionalists [facility] Continue beta-pool, will change to metoprolol succinate given LV dysfunction 25 mg twice per day 05/09/2024 Clinically stable and no acute cardiac complaints. 1. Acute coronary syndrome status post urgent coronary invention distal right coronary artery, residual PICTURE HANGER left anterior descending Plan continue dual antiplatelet minimal 6 months Continue metoprolol succinate Add rosuvastatin 20 mg/day with lipid panel order in a.m. Repeat echocardiogram reassess LV function in a.m. 05/10/2024 Clinically stable no further chest pain or shortness of breath Plan as previously outlined Echocardiogram demonstrates improving LV function will refer for consideration of intervention of the left anterior descending Recommend continued metoprolol succinate. If blood pressure lower would consider reduction in gabapentin or alternative medications Dual antiplatelet therapy minimum of 6 months without hold Admission and Anticipated Discharge Date Admission Date: May 05, 2024 Subjective Patient seen and personally examined, chart reviewed No cardiac complaints No chest pain or shortness of breath Tolerating medications Tolerated dialysis yesterday Echocardiogram demonstrates improved overall systolic function Physical Exam Constitutional: + overweight; no acute distress Eyes: PERRL, conjunctivae normal, anicteric sclerae Neck: normal visual inspection and trachea midline Respiratory: no respiratory distress, no labored breathing, no retractions and no cough Auscultation: + diminished lung sounds (bilateral bases ); no crackles, no rales and no rhonchi Cardiovascular: Rate/Rhythm: regular rate and regular rhythm Heart Sounds: normal S1 and normal S2; no murmur Vessels: femoral pulses present Ex tremities: + AV fistula (Bilateral arms brachial); no edema Gastrointestinal (Abdomen): normal bowel sounds, soft, nontender, no hepatosplenomegaly Skin: no rashes, warm and dry (bilateral upper extremity fistulas ) Psychiatric: Orientation: oriented x 3; + not alert (drowsy) Eye Contact: good eye contact Affect: euthymic affect Results & Data Vital Signs (Past 12 Hours) Vital Signs Temp Pulse Resp BP Pulse Ox O2 Del Method 05/10/24 07:21 36.7 C 72 18 97/62 L 96 Room Air 05/10/24 02:51 37.0 C 74 18 128/61 97 Room Air 05/10/24 00:59 Room Air 05/10/24 00:33 36.9 C 77 16 99/66 L 99 Room Air (1) Chest pain Chest pain type: unspecified Qualified Code(s): R07.9 - Chest pain, unspecified (6) Anemia Anemia type: unspecified type Qualified Code(s): D64.9 - Anemia, unspecified
[2024-05-10 11:50] LABS: Calcium 8.9 mg/dl (8.6-10.3); Potassium 4.5 mmol/L (3.5-5.1)
[2024-05-10 11:53] VITALS: TEMP 97.7
[2024-05-10 11:58] LABS: BUN Creatinine Ratio 6.2 (10-20); Creatinine Clr Calc Pharmacy 14.4 ml/min; Est GFR (African American) 10.5 ml/min; Est GFR (Non-African American) 9.1 ml/min
[2024-05-10 12:05] LABS: Troponin I High Sensitivity 2564.9 pg/ml (0-14)
[2024-05-10 12:09] LABS: Hematocrit (blood only) 27.8 % (37.0-47.0); Hemoglobin 8.7 g/dl (12.0-16.0); Mean Corpuscular Hemoglobin 31.2 pg (25.0-34.0); Mean Corpuscular Hgb Conc 31.3 g/dL (32.0-36.0); Mean Corpuscular Volume 99.6 fL (80.0-100.0); Mean Platelet Volume 10.6 fL (9.4-12.4); Nucleated RBC # (auto) 0.05 K/uL (0.00-0.12); Nucleated RBC % (auto) 0.8 %; Platelet Count 186 K/uL (130-400); RDW Coefficient of Variation 16.7 % (11.5-14.5); RDW Standard Deviation 59.4 fL (36.4-46.3); Red Blood Count 2.79 M/uL (4.20-5.40); White Blood Count 5.93 K/ul (4.8-10.8)
--- NOTE | 2024-05-10 12:20 | Discharge Summary ---
Discharge Summary Date of Service May 10, 2024 Principal Dx & Hospital Course #1 = Principal Diagnosis (1) Rectal bleeding: (2) Abdominal pain: (3) Episode of syncope: (4) Chest pain: Plan Ms. Alexandra Arguello is a 38y/o F with PMHx of diet-controlled DM type II, ESRD on hemodialysis, history of acute thrombosis of brachiocephalic vein, HTN, cardiomegaly, GERD, restless leg syndrome, history of chest pains, history of sy ncope and collapse, history of migraine, history of anemia [baseline Hgb ~9-11], history of transplant rejection, history of depression with anxiety, bipolar disorder and other problems listed below who presented to the ED via EMS for evaluation of multiple complaints. She was recently admitted 04/29/24-04/30/24 for evaluation of chest pain. Plan at that time was for her to undergo Lexiscan nuclear stress testing as outpatient Patient's course complicated by abnormal echo iso chest pain, cardiology consulted with plans for LHC. Patient underwent LHC on 05/07 with placement of stent in rPDA. Patient also with anemia, hgb down to 7.5 prompting transfusion of 1 UPRBC on 05/06. Patient with robust response to unit administered. GI following and notes that anemia warrants further investigation, however, deferred as cardiac issues addressed. Continue transfusion goal for hgb goal >8.0 iso CAD/vasculopathy Patient will need to remain admitted until Saturday for HD as patient will not be able to attend on Saturday due to mandatory obligation Patient was to discharge later today however became lethargic after ativan and was a rapid response. Labs revealed elevated troponin 2564.9 and lactate 2.5. Suspect 2/2 hypotension and recent LHC as patient is without any chest pain. Discussed with Dr Posada who concurred and recommended attempting to lower other medications (gabapentin) given it exacerbates hypotension and confusion. Patient alert and oriented x 3 during event, however lethargic. VS noted to be with SBP in 80s; patient with multiple medications that can contribute to not only AMS but also hypotension. Patient was transferred to PCU given encephalopathic event. Shortly there after, patient oriented and requesting to leave given court obligation. Discussed that it is not safe at this time given recent events and would like to trend troponin and lactate. Patient began to cry stating she has "Court and will go to penitentiary" if she doesn't attend. Discussed willingness to file proper paperwork to show that patient was hospitalized and will be supportive in any attempt to reschedule court date. Patient declined. Offered batteryman discharge, patient declined. Discussion was had about risks and concerns. Patient verbalized understanding #Acute toxic metabolic encephalopathy likely iso ativan dosing (reports home usage) in addition to high dosing of gabapentin Decrease gabapentin to 200mg TID from 400 mg TID Hold benzos Discussed concerns with patient, patient AOx3 and with capacity #Elevated troponin likely demand iso severe CAD, hypotension, and recent cath no concern for active ACS at this time; however given patient's severe CAD plan to monitor in PCU with repeat troponins. Patient declined opting for AMA #NSTEMI #Obstructive Coronary artery disease s/p ARIEL rPDA 05/07 #Severe Coronary artery disease #Syncopal Episode #Atypical chest pain #New Heart failure with reduced EF 35-40% likely 2/2 Ischemic cardiomyopathy patient with multiple syncopal episodes, ECHO with reduced EF and new wall motion abnormalities patient with recurrent episodes of chest pain, but EKG negative of acute changes ECHO with severe hypokinesis of apex and midseptal/inferior wall patient s/p LHC on 05/07 with stent to rPDA Follow cardiology recommendations for optimization/GDMT -Transitioned to Metoprolol Succinate BID -ASA and plavix -continue statin #Acute on chronic anemia, c/f blood loss iso ?hemorrhoidal bleed #Abdominal Pain: Hgb 8 on admission, baseline Hgb ~9-11 per chart review. CTAP without contributing findings Hgb goal >8.0 iso new cardiac concerns transfuse PRN. GI evaluated, would warrant C-scope however, will defer given cardiac concerns Iron 32, tibc 201, ferritin elevated Defer to Nephrology for further optimization IV PPI BID. Patient s/p 1 U PRBC 05/06 with robust response, goal hgb remains >8.0 Concern with continued GIB iso DAPT GI following, will appreciate continued recommendations -Will need OP follow up with GI and CRS Hgb remains stable Encouraged bowel regimen #Asthma: Stable, continue home meds. #DM Type II: No home agents, diet-controlled. SSI while inpatient, BSG checks ACHS. Hgb A1c was 5.6% on 04/20/24. #Hyperkalemia #ESRD on Hemodialysis: Follows w/ Dr. Leah Nieves. HD on MWF HD per nephrology Plan for HD saturday #Chronic Thrombocytopenia: Plt count stable Other Chronic Medical Conditions: Depression w/ anxiety, bipolar disorder --> Can continue home medications for these specific conditions. Left AMA Notes For Next Care Provider Left AMA Medication Changes From Visit START Plavix 75mg daily START ASA 81 mg daily START metoprolol 25mg BID START protonix 40mg BID REDUCED Gabapentin from 400mg to 200mg TID Admission HPI Per Admitting Provider Alexandra Arguello is a 38y/o F with PMHx of diet-controlled DM type II, ESRD on hemodialysis, history of acute thrombosis of brachiocephalic vein, HTN, cardiomegaly, GERD, restless leg syndrome, history of chest pains, history of syncope and collapse, history of migraine, history of anemia [baseline Hgb ~9- 11], history of transplant rejection, history of depression with anxiety, bipolar disorder and other problems listed below who presented to the ED via EMS for evaluation of multiple complaints. History obtained from patient and associated chart review. Patient seen at bedside with Dr. Zendejas. She was recently admitted 04/29/24-04/30/24 for evaluation of chest pain. Patient was seen and evaluated by cardiology at that time. It was determined that her chest pain was likely related to volume overload, acute heart failure in setting of noncompliance with dialysis treatments. Plan at that time was for her to undergo Lexiscan nuclear stress testing as outpatient. Nephrology also saw and evaluated patient during that admission. Underwent dialysis on 04/29, approximately 4L of fluid was removed. Potassium at time of discharge was 5.4, and her creatinine went down from 11 at time of presentation to 7.52 on day of discharge. Patient also had bleeding hemorrhoids during that admission as well. Plan was to have her referred to colorectal surgery by her PCP office. Of note, patient was loaded with ASA 324mg en route to the ED today secondary to chest pain. She missed her dialysis appointment yesterday. Currently undergoing hemodialysis Saturday/Saturday/Saturday. Reports ongoing central chest pain similar to her previous admission. Has noticed increasing SOB with exertion as well. Has not used her rescue inhaler at all. Complaining of some RUQ abdominal pain as well. Reports loose stools. Has been experiencing some rectal bleeding from her hemorrhoids since last night. Denies any black or overtly bloody stool. Mentions she had a temp of 100oF last night. Had a syncopal event earlier today where she collapsed back into her recliner. No noted confusion following the syncopal episode. Denies any loss of bowel or bladder control during the event. She lives at home with herself therefore this was an unwitnessed event. Reports an ongoing dry cough. No recent known sick contacts. Did have some nausea and vomiting on Saturday night. Reports 3-4 episodes of vomiting occurring throughout Saturday night into Saturday morning. Discharge Exam Constitutional WD/WN, vitals as above (alert and oriented at time of AMA ) Respiratory normal respiratory effort, lungs clear to auscultation Cardiovascular RRR, no murmur, no edema Gastrointestinal (Abdomen) normal bowel sounds, soft, nontender, no hepatosplenomegaly Musculoskeletal no cyanosis or clubbing, extremities motor strength 5/5 Updated Medication List Medication Instructions Recorded Confirmed Type albuterol sulfate 2.5 mg/3 mL 2.5 mg inhalation Q4H PRN 06/08/23 05/05/24 History (0.083 %) solution for nebulization Shortness Of Breath Or Wheezing albuterol sulfate 90 mcg/actuation 2 puff inhalation Q6H PRN 06/08/23 05/05/24 History aerosol inhaler Shortness Of Breath Or Wheezing carbamazepine 200 mg tablet 200 mg PO AMPM 06/08/23 05/05/24 History hydroxyzine HCl 25 mg tablet 25 mg PO Q6H PRN Anxiety 06/08/23 05/05/24 History lorazepam 0.5 mg tablet 0.5 mg PO Q8 PRN Anxiety 06/08/23 05/05/24 History mometasone-formoterol HFA 200 2 puff inhalation BID 06/08/23 05/05/24 History mcg-5 mcg/actuation aerosol inhaler (Dulera) vitamin B complex-vitamin C-folic 1 tab PO DAILY 06/08/23 05/05/24 History acid 0.8 mg tablet (Renal-Rika) benzonatate 100 mg capsule 200 mg PO TID PRN Cough 08/29/23 05/05/24 History calcium acetate(phosphat bind) 667 2,001 mg PO UD 08/29/23 05/05/24 History mg capsule cinacalcet 90 mg tablet 90 mg PO QDD 08/29/23 05/05/24 History medroxyprogesterone 150 mg/mL 150 mg IM UD 08/29/23 05/05/24 History intramuscular suspension (Depo-Provera) hydrocortisone 1 %-pramoxine 1 % 1 applic IN QID PRN itching #10 04/11/24 05/05/24 Rx rectal foam (Proctofoam HC) grams lidocaine 5 % topical ointment 1 applic topical QID PRN pain #30 04/11/24 05/05/24 Rx grams bupropion HCl 150 mg 24 hr tablet, 150 mg PO QAM 04/17/24 05/05/24 History extended release mirtazapine 7.5 mg tablet 7.5 mg PO HS 04/17/24 05/05/24 History varenicline 0.5 mg tablet 0.5 mg PO DAILY #30 tabs 04/30/24 05/05/24 Rx aspirin 81 mg tablet,delayed 81 mg PO QAM #30 tabs 05/09/24 Rx release clopidogrel 75 mg tablet 75 mg PO QAM #30 tabs 05/09/24 Rx metoprolol succinate 25 mg 25 mg PO BID #60 tabs 05/09/24 Rx tablet,extended release 24 hr polyethylene glycol 3350 17 gram 17 g PO BID 30 days #60 ea 05/09/24 Rx oral powder packet (Miralax) rosuvastatin 20 mg tablet 20 mg PO QAM #30 tabs 05/09/24 Rx gabapentin 100 mg capsule 200 mg (2 x 100 mg) PO TID #180 05/10/24 Rx caps pantoprazole 40 mg tablet,delayed 40 mg PO BID #60 tabs 05/10/24 Rx release Hospital Stay Data Consultations 05/05/24 18:23 Consult Nephrology Routine 05/05/24 19:08 ED Decision to Admit Stat 05/05/24 19:17 Consult Gastroenterology Routine 05/06/24 08:16 Consult Cardiology Routine Procedures Performed Operation Date: 05/07/24 11:00 Actual Procedures p Cineradiography w/Routine Exam - Daljit Britton MD p Cath, Left with Cors and Vent - Daljit Britton MD p Drug Eluting Stent SGl Vessel - Daljit Britton MD Diagnostic Imagining Performed 05/05/24 18:25 CT head/brain wo con Stat 05/05/24 19:07 CT Abd and Pelvis [CT abd pelvis wo con] Stat 05/07/24 11:00 CL Cath Imgs for PACS use only Routine Pending Results Patient Have Any Pending Studies at Discharge: No Discharge Instructions Given to Patient (Per Discharging Provider) You were admitted for chest pain You were found to have severe coronary artery disease and had a stent placed; however, you still have residual disease in your heart vessels that require a special home health speech therapist to try to open. You were started on the two following medications: Clopidodrel 75 mg daily and ASA 81mg daily You were also started on Metorpolol XL 25mg two times a day for your heart, as well as rosuvastatin 20mg daily. Please make an appointment to follow up with Cardiology and PCP These two medications are very important. Please continue these indefinitely. Given your hemorrhoid bleeding and anemia, please continue miralax daily and consider the addition of a stool softener like docusate sodium 100mg two times a day. Please reduce you gabapentin to 200mg two times a day to prevent you pressures from being so low. Please minimize use of ativan as able given confusion. Please keep your appointments with dialysis. You left AMA after an unresponsive episode there fore please follow up as soon as possible with your providers. Total Time Total Time Spent Total Time Spent (In Minutes): 65
[2024-05-10 12:58] VITALS: PULSE 77; O2SAT 96
[2024-05-10] MEDS ORDERED: GABAPENTIN 100 MG CAP PO SCH (14:00)
--- NOTE | 2024-05-12 06:11 | Electrocardiogram Report ---
Test Reason : Blood Pressure : */* mmHG Vent. Rate : 71 BPM Atrial Rate : 71 BPM P-R Int : 154 ms QRS Dur : 114 ms QT Int : 498 ms P-R-T Axes : 10 -13 0 degrees QTcB Int : 541 ms Normal sinus rhythm Possible Anterolateral infarct (cited on or before 21-Mar-2018) Prolonged QT Abnormal ECG When compared with ECG of 07-May-2024 14:47, Minimal criteria for Inferior infarct are no longer Present T wave inversion now evident in Inferior leads Confirmed by Reji Gregorio ([id number]) on 05/12/2024 6:11:04 AM Referred By: REFERRED SELF Confirmed By: Reji Gregorio
== END 2024-05-10 13:22 | disposition left against medical advice (07) | DRG 323 ==
LOC: ED 14:14 → SUATTDRO 18:23 → 2S 18:23 → 2N 05-10 01:07 → 1E 05-10 11:28

== ENCOUNTER 2024-05-20 03:51 | Inpatient (IN) ==
[2024-05-20 04:40] LABS: Basophils # (auto) 0.02 K/uL (0.00-0.20); Basophils % (auto) 0.4 %; Eosinophils # (auto) 0.12 K/uL (0.00-0.50); Eosinophils % (auto) 2.3 %; Hematocrit (blood only) 22.6 % (37.0-47.0); Immature Granulocytes # (auto) 0.02 K/uL (0.01-0.20); Immature Granulocytes % (auto) 0.4 %; Lymphocytes # (auto) 0.49 K/uL (1.20-3.40); Lymphocytes % (auto) 9.4 %; Mean Corpuscular Hemoglobin 33.2 pg (25.0-34.0); Mean Corpuscular Volume 107.1 fL (80.0-100.0); Mean Platelet Volume 9.9 fL (9.4-12.4); Monocytes # (auto) 0.43 K/uL (0.11-0.59); Monocytes % (auto) 8.2 %; Neutrophils # (auto) 4.15 K/uL (1.40-6.50); Neutrophils % (auto) 79.3 %; Platelet Count 130 K/uL (130-400); RDW Coefficient of Variation 22.4 % (11.5-14.5); RDW Standard Deviation 85.1 fL (36.4-46.3); Red Blood Count 2.11 M/uL (4.20-5.40); White Blood Count 5.23 K/ul (4.8-10.8)
[2024-05-20 04:44] LABS: Albumin Globulin Ratio 1.4 (0.9-2); Albumin Level 3.6 gm/dl (3.4-5.0); Bilirubin,Total 0.4 mg/dl (0.2-1.0); Calcium 9.1 mg/dl (8.6-10.3); Creatinine Clr Calc Pharmacy 12.5 ml/min; Est GFR (African American) 8.4 ml/min; Est GFR (Non-African American) 7.3 ml/min; Globulin 2.5 gm/dl (2.5-4.0); Potassium 5.4 mmol/L (3.5-5.1); Total Protein 6.1 gm/dl (6.0-8.3); Troponin I High Sensitivity 71.2 pg/ml (0-14)
[2024-05-20 05:06] LABS: Anisocytosis Present; Polychromasia 1+
[2024-05-20] MEDS: SODIUM BICARB 8.4% INJ 50 MEQ/50 ML SYR IV STA (05:10)
[2024-05-20] MEDS ORDERED: NITROGLYCERIN SL 0.4 MG/TAB TAB SL PRN (05:17)
[2024-05-20] MEDS ORDERED: ACETAMINOPHEN 325 MG TAB PO PRN (05:18)
[2024-05-20] MEDS: NITROGLYCERIN SL 0.4 MG/TAB TAB SL STA (05:30)
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
[2024-05-20 05:43] LABS: Magnesium 2.3 mg/dl (1.7-2.4)
[2024-05-20] MEDS ORDERED: SODIUM CHLORIDE 0.9% 250 ML IV PRN (05:45)
[2024-05-20] MEDS: traMADol HCL 50 MG TABLET PO PRN (05:57)
[2024-05-20] MEDS ORDERED: CARBOHYDRATES FOR HYPOGLYCEMIA PO PRN (06:10)
[2024-05-20] MEDS ORDERED: GLUCOSE 10 TAB/TUBE PO PRN (06:10)
[2024-05-20] MEDS ORDERED: GLUCOSE 40% GEL 15 GM TUBE PO PRN (06:10)
[2024-05-20] MEDS ORDERED: DEXTROSE 50% 50 ML SYRINGE IV PRN (06:10)
[2024-05-20] MEDS ORDERED: GLUCAGON FOR INJ 1 MG VIAL SQ PRN (06:10)
[2024-05-20 06:25] VITALS: RESP 16; O2SAT 100
[2024-05-20 07:02] LABS: Potassium 5.4 mmol/L (3.5-5.1)
--- NOTE | 2024-05-20 07:05 | Emergency Department Note ---
History of Present Illness General Chief complaint: Cardiac Assessment Stated complaint: CHEST PAIN, HERE MULTIPLE TIMES FOR SAME Time Seen by Provider: 05/20/24 03:55 History of Present Illness Maximum Pain Intensity: 10 This is a 38-year-old female presenting to the emergency department via EMS from home for evaluation of chest pain. Patient has been evaluated several times this month with this complaint. Previous evaluation has included cardiac catheterization this month. She is well-known to the ER due to frequency of visits. Patient woke up this morning to get ready to attend dialysis, felt chest pain, and elected to come to the ER. She has not had fevers or chills. She rates her discomfort a 06/04. Home Medications Medication Instructions Recorded Confirmed Type albuterol sulfate 2.5 mg/3 mL 2.5 mg inhalation Q4H PRN 06/08/23 05/20/24 History (0.083 %) solution for nebulization Shortness Of Breath Or Wheezing albuterol sulfate 90 mcg/actuation 2 puff inhalation Q6H PRN 06/08/23 05/20/24 History aerosol inhaler Shortness Of Breath Or Wheezing carbamazepine 200 mg tablet 200 mg PO AMPM 06/08/23 05/20/24 History hydroxyzine HCl 25 mg tablet 25 mg PO Q6H PRN Anxiety 06/08/23 05/20/24 History lorazepam 0.5 mg tablet 0.5 mg PO Q8 PRN Anxiety 06/08/23 05/20/24 History mometasone-formoterol HFA 200 2 puff inhalation BID 06/08/23 05/20/24 History mcg-5 mcg/actuation aerosol inhaler (Dulera) vitamin B complex-vitamin C-folic 1 tab PO DAILY 06/08/23 05/20/24 History acid 0.8 mg tablet (Renal-Rika) benzonatate 100 mg capsule 200 mg PO TID PRN Cough 08/29/23 05/20/24 History calcium acetate(phosphat bind) 667 2,001 mg PO UD 08/29/23 05/20/24 History mg capsule cinacalcet 90 mg tablet 90 mg PO QDD 08/29/23 05/20/24 History medroxyprogesterone 150 mg/mL 150 mg IM UD 08/29/23 05/20/24 History intramuscular suspension (Depo-Provera) hydrocortisone 1 %-pramoxine 1 % 1 applic IL QID PRN itching #10 04/11/24 05/20/24 Rx rectal foam (Proctofoam HC) grams lidocaine 5 % topical ointment 1 applic topical QID PRN pain #30 04/11/24 05/20/24 Rx grams bupropion HCl 150 mg 24 hr tablet, 150 mg PO QAM 04/17/24 05/20/24 History extended release mirtazapine 7.5 mg tablet 7.5 mg PO HS 04/17/24 05/20/24 History varenicline 0.5 mg tablet 0.5 mg PO DAILY #30 tabs 04/30/24 05/20/24 Rx aspirin 81 mg tablet,delayed 81 mg PO QAM #30 tabs 05/09/24 05/20/24 Rx release clopidogrel 75 mg tablet 75 mg PO QAM #30 tabs 05/09/24 05/20/24 Rx metoprolol succinate 25 mg 25 mg PO BID #60 tabs 05/09/24 05/20/24 Rx tablet,extended release 24 hr polyethylene glycol 3350 17 gram 17 g PO BID 30 days #60 ea 05/09/24 05/20/24 Rx oral powder packet (Miralax) rosuvastatin 20 mg tablet 20 mg PO QAM #30 tabs 05/09/24 05/20/24 Rx gabapentin 100 mg capsule 200 mg (2 x 100 mg) PO TID #180 05/10/24 05/20/24 Rx caps pantoprazole 40 mg tablet,delayed 40 mg PO BID #60 tabs 05/10/24 05/20/24 Rx release Allergies Allergy/AdvReac Type Severity Reaction Status Date / Time cefaclor Allergy Intermediate Rash Verified 04/29/24 00:26 Cephalosporins Allergy Intermediate Rash Verified 04/29/24 00:26 amoxicillin AdvReac Intermediate VOMITING Verified 04/29/24 00:26 clavulanic acid AdvReac Intermediate VOMITING Verified 04/29/24 00:26 Past Med/Surg History Problem List (Updated 05/20/24 @ 21:52 by Farooq Patel PA-C) Atypical chest pain (Acute) Anemia (Acute) Atypical chest pain (Acute) Abnormal laboratory test (Acute) Coronary artery disease due to calcified coronary lesion Dialysis complication (Acute) Syncope (Acute) Acute hyperkalemia (Acute) Symptomatic anemia (Acute) Episode of syncope Rectal bleeding Chest pain (Acute) ESRD on dialysis (Acute) Acute hyperkalemia (Acute) Elevated troponin (Acute) Chest pain not due to acute coronary syndrome (Acute) Bleeding external hemorrhoids (Acute) Non-compliance (Acute) Fluid overload (Acute) Uremia (Acute) Anemia (Acute) Depression (Acute) Weakness (Acute) Sleep deprivation (Acute) Hallucinations (Acute) Anemia (Acute) Dialysis patient (Acute) Medical non-compliance (Acute) Acute uremia (Acute) Shortness of breath (Acute) Elevated troponin (Acute) Acute hyperkalemia (Acute) SOB (shortness of breath) (Acute) SOB (shortness of breath) (Acute) CHF (congestive heart failure) (Acute) Acute uremia (Acute) Somnolence (Acute) Medical non-compliance (Acute) Elevated troponin (Acute) Dialysis patient (Acute) Renal failure (Acute) Hyperkalemia (Acute) Thrombocytopenia COVID-19 (Acute) Renal osteodystrophy Anemia in ESRD (end-stage renal disease) ESRD (end stage renal disease) on dialysis (Acute) DM2 (diabetes mellitus, type 2) (Acute) Anxiety Depression Major depressive disorder, recurrent, in partial remission Depression with anxiety Anemia of chronic disease Status post fall last fallNovember 2022 > nasal fx / knee pain, no surgery for either injury > resolved per pt report Prolonged QT interval (Acute) no cardio HTN (hypertension) (Acute) Anemia due to end stage renal disease (Acute) FSGS (focal segmental glomerulosclerosis) (Chronic) DX INITIALLY 2012 (CAUSING ESRD 2012) Medical History Mood disorder Anxiety disorder, unspecified Abnormal chest xray Elevated lactic acid level Transaminitis Pneumonia Metabolic encephalopathy Acute non-ST elevation myocardial infarction (NSTEMI) Pulmonary edema Acute hyperkalemia Acute alteration in mental status Renal failure (ARF), acute on chronic Encephalopathy Facial fracture GI bleed ESRD (end stage renal disease) on dialysis Symptomatic anemia Tobacco abuse DVT prophylaxis Fistula right arm (currently being used) and left arm Dialysis patient SATURDAY/SAT/SATURDAY AT [facility] GERD (gastroesophageal reflux disease) Bipolar disorder Restless leg syndrome Peripheral neuropathy Asthma rare res inh use History of abnormal cervical Papanicolaou smear Elevated troponin Acute electrocardiogram changes Surgical History H/O eye surgery LASER SURGERY LEFT History of surgery left arm d/t clot in arm from AV fistula use @ [facility] History of surgery (~09/09/20) perm cath > since removed History of colonoscopy Kidney transplant recipient 2013 AT [facility] History of tooth extraction three TOOTH History of cardiac cath 2016 NO STENTS AVF (arteriovenous fistula) bilat upper arms ---currently using right for dialysis Family History Grandmother Hx of CABG Mother Diabetes Father Crohn's disease Grandfather (Maternal) Diabetes Uncle Diabetes Grandmother (Maternal) Family history of reaction to anesthesia difficulty waking with colonoscopy Social History Smoking Status: Never smoker Tobacco Type: Cigarettes Cigarettes Per Day: 20; Second Hand Exposure: No; Do You Dip or Chew Tobacco: No; Hx Alcohol Use: No Hx Substance Use: No Preferred Language: Congolese Communication Ability: Effective Correspondence Specialist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 Beliefs That Will Affect Care: None marital status: Single Current Living Situation: Alone Current Living Situation Comment: boyfriend recently kicked patient out of house pt reports How many Children do You have: 3 Feels Safe at Home: Yes Assistive Devices: None Review of Systems A total of 10 systems reviewed and were otherwise negative Physical Exam Vital Signs Vital Signs - 24 hr 05/20/24 03:54 05/20/24 03:55 05/20/24 03:55 Temperature 36.7 C Temperature Source Oral Pulse Rate 90 90 Pulse Rate from SpO2 Sensor Respiratory Rate 18 Respiratory Effort / Characteristics Non-Labored Respiratory Depth Normal Respiratory Pattern Regular Blood Pressure 129/79 Blood Pressure Mean 95 Pulse Oximetry 100 100 100 Oxygen Delivery Method Room Air Room Air Room Air Sepsis Recent Fever Within 48 Hours No Sepsis New/Unexplained Change in Mental Status N/A Sepsis Action Taken by Nursing No Action Required 05/20/24 04:05 05/20/24 04:33 Temperature Temperature Source Pulse Rate 88 86 Pulse Rate from SpO2 Sensor 86 Respiratory Rate 12 Respiratory Effort / Characteristics Respiratory Depth Respiratory Pattern Blood Pressure 133/78 Blood Pressure Mean 96 Pulse Oximetry 99 Oxygen Delivery Method Sepsis Recent Fever Within 48 Hours Sepsis New/Unexplained Change in Mental Status Sepsis Action Taken by Nursing VITALS: Vitals are noted on the nurse's note and reviewed by myself. Vital signs stable. GENERAL: Chronically ill white female who appears at her baseline HEAD: Normocephalic atraumatic. NECK: Supple without nuchal rigidity. No lymphadenopathy. No thyromegaly. Cervical spine is nontender. HEART: Regular rate and rhythm without murmurs gallops or rubs. LUNGS: Clear to auscultation bilaterally without wheezes, rales or rhonchi. No retractions or accessory muscle use. ABDOMEN: Positive normal bowel sounds x 4. Soft, nontender, without masses or organomegaly. No guarding or rebound tenderness. MUSCULOSKELETAL: No muscle atrophy, erythema, or edema noted. Full range of motion in all extremities. Course Administered Medications Discontinued Medications Aspirin (Aspirin 81 Mg Ectab) 81 mg PO QAM [facility] Stop: 06/19/24 08:59 Last Admin: 05/20/24 09:40 Dose: 81 mg Documented By: Bupropion HCl (Bupropion Xl 150 Mg Tabcr) 150 mg PO QAM [facility] Stop: 06/19/24 08:59 Last Admin: 05/20/24 09:45 Dose: 150 mg Documented By: MR Carbamazepine (Carbamazepine 200 Mg Tablet) 200 mg PO BID NIKKI Stop: 06/19/24 08:59 Last Admin: 05/20/24 09:45 Dose: 200 mg Documented By: MR Clopidogrel Bisulfate (Clopidogrel Bisulfate 75 Mg Tab) 75 mg PO QAM [facility] Stop: 06/19/24 08:59 Last Admin: 05/20/24 09:40 Dose: 75 mg Documented By: MR Epoetin Travis (Epoetin Travis 20,000 Units/Ml Vial) 20,000 units IV ONE ONE Stop: 05/20/24 07:51 Last Admin: 05/20/24 11:48 Dose: 20,000 units Documented By: LM Fluticasone/Vilanterol (Fluticasone/Vilanterol 200/25mcg 14 Puffs/Inhaler) 1 puffs INH DAILY [facility] Stop: 06/19/24 08:59 Last Admin: 05/20/24 15:31 Dose: Not Given Documented By: CA Gabapentin (Gabapentin 100 Mg Cap) 200 mg PO TID [facility] Stop: 06/19/24 08:59 Last Admin: 05/20/24 14:36 Dose: 200 mg Documented By: Admin: 05/20/24 09:45 Dose: 200 mg Documented By: Pantoprazole Sodium 40 mg/ (Syringe) 10 mls @ 5 mls/min IV BID NIKKI Stop: 06/19/24 08:59 Last Admin: 05/20/24 09:40 Dose: 5 mls/min Documented By: MR Acetaminophen (Ofirmev) 1,000 mg in 100 mls @ 400 mls/hr IV NOW STA Stop: 05/20/24 16:24 Last Admin: 05/20/24 16:34 Dose: 400 mls/hr Documented By: LULA Insulin Aspart (Insulin Aspart Per Unit Charge) 0 units SC ACHS NIKKI Stop: 06/19/24 07:29 Last Admin: 05/20/24 15:23 Dose: Not Given Documented By: Admin: 05/20/24 09:36 Dose: 1 units Documented By: Co-signed By: AL Lorazepam (Lorazepam 0.5 Mg Tab) 0.25 mg PO Q8 PRN PRN Reason: Anxiety Stop: 06/19/24 08:08 Last Admin: 05/20/24 09:49 Dose: 0.25 mg Documented By: MR Metoprolol Succinate (Metoprolol Succ 25mg Ext Rel Tab) 25 mg PO BID [facility] Stop: 06/19/24 08:59 Last Admin: 05/20/24 09:40 Dose: Not Given Documented By: MR Schroedercellaneous (No Heparin In Dialysis) 1 each N/A ONE ONE Stop: 05/20/24 07:45 Last Admin: 05/20/24 11:47 Dose: Not Given Documented By: RUSLAN Miscellaneous (Varenicline 0.5mg: Order Awaiting Action) 1 each N/A QS NIKKI Stop: 06/19/24 15:59 Last Admin: 05/20/24 15:24 Dose: Not Given Documented By: LULA Morphine Sulfate (Morphine Sulfate 2 Mg/Ml Carp) 0.5 mg IV NOW STA Stop: 05/20/24 11:21 Last Admin: 05/20/24 12:10 Dose: 0.5 mg Documented By: Nitroglycerin (Nitroglycerin Sl 0.4 Mg/Tab Tab) 0.4 mg SL NOW STA Stop: 05/20/24 05:20 Last Admin: 05/20/24 05:30 Dose: 0.4 mg Documented By: QAMAR Rosuvastatin Calcium (Rosuvastatin Calcium 20 Mg Tab) 20 mg PO QAM NIKKI Stop: 06/19/24 08:59 Last Admin: 05/20/24 09:45 Dose: 20 mg Documented By: Sodium Bicarbonate (Sodium Bicarb 8.4% Inj 50 Meq/50 Ml Syr) 50 meq IV NOW STA Stop: 05/20/24 04:59 Last Admin: 05/20/24 05:10 Dose: 50 meq Documented By: QAMAR Tramadol HCl (Tramadol Hcl 50 Mg Tablet) 25 - 50 mg PO Q4H PRN PRN Reason: Pain Stop: 06/19/24 05:17 Last Admin: 05/20/24 14:36 Dose: 50 mg Documented By: Admin: 05/20/24 05:57 Dose: 50 mg Documented By: QAMAR Vitamin B Complex/Folic Acid (Nephrocaps) 1 cap PO DAILY NIKKI Stop: 06/19/24 08:59 Last Admin: 05/20/24 09:45 Dose: 1 cap Documented By: Medical Decision Making Differential Diagnosis Differential diagnosis includes, but is not limited to: Myocardial infarction, dysrhythmia, pericarditis, pneumothorax, aortic aneurysm/dissection, DVT/PE, anxiety, GERD, PUD, electrolyte imbalance, thyroid disorder, pneumonia, bronchitis, pancreatitis, and others Laboratory Data 05/20/24 14:30 05/20/24 06:29 Lab Results 05/20/24 Range/Units 04:07 WBC 5.23 (4.8-10.8) K/ul RBC 2.11 L (4.20-5.40) M/uL Hgb 7.0 L (12.0-16.0) g/dl Hct 22.6 L (37.0-47.0) % MCV 107.1 H (80.0-100.0) fL MCH 33.2 (25.0-34.0) pg MCHC 31.0 L (32.0-36.0) g/dL RDW Std Deviation 85.1 H (36.4-46.3) fL RDW Coeff of Laith 22.4 H (11.5-14.5) % Plt Count 130 (130-400) K/uL MPV 9.9 (9.4-12.4) fL Immature Gran % (Auto) 0.4 % Neut % (Auto) 79.3 % Lymph % (Auto) 9.4 % Nolan % (Auto) 8.2 % Eos % (Auto) 2.3 % Baso % (Auto) 0.4 % Neut # (Auto) 4.15 (1.40-6.50) K/uL Lymph # (Auto) 0.49 L (1.20-3.40) K/uL Nolan # (Auto) 0.43 (0.11-0.59) K/uL Eos # (Auto) 0.12 (0.00-0.50) K/uL Baso # (Auto) 0.02 (0.00-0.20) K/uL Immature Gran # (Auto) 0.02 (0.01-0.20) K/uL Polychromasia 1+ Anisocytosis Present Sodium 136 (136-145) mmol/L Potassium 5.4 H (3.5-5.1) mmol/L Chloride 92 L (98-107) mmol/L Carbon Dioxide 32 (21-32) mmol/L Anion Gap 12 H (3-11) BUN 60 H D (6-23) mg/dl Creatinine 6.63 H* D (0.6-1.2) mg/dl Est Cr Clr Drug Dosing 12.5 ml/min Est GFR ( Amer) 8.4 ml/min Est GFR (Non-Af Amer) 7.3 ml/min BUN/Creatinine Ratio 9.0 L (10-20) Glucose 164 H (70-99(Fasting)) mg/dl Calcium 9.1 (8.6-10.3) mg/dl Magnesium 2.3 (1.7-2.4) mg/dl Total Bilirubin 0.4 (0.2-1.0) mg/dl AST 16 (13-39) U/L ALT 9 (7-52) U/L Alkaline Phosphatase 126 H (34-104) U/L Troponin I High Sens 71.2 H* (0-14) pg/ml Total Protein 6.1 (6.0-8.3) gm/dl Albumin 3.6 (3.4-5.0) gm/dl Globulin 2.5 (2.5-4.0) gm/dl Albumin/Globulin Ratio 1.4 (0.9-2) Lipase 40 (11-82) U/L MDM Narrative Physical exam and history were performed. Nursing notes, EMR, and Medication List were personally reviewed. No social concerns were identified as barriers to patients care. Patient appears to have chest pain symptoms bringing her to the ER. Patient has complicated medical disease, and persistence of symptoms. IV access was established and labs were obtained. Patient's blood work is as above and was reviewed. She continues to be anemic, and unfortunately her numbers are trending downward. She has a goal hemoglobin of 8, and today it is at 7. Her troponin is improving from earlier this month, which is reassuring. Renal function is worsening, however today is a dialysis day for the patient. Overall she does not appear well for discharge. Case was discussed with the on- call [facility] hospitalist, who agreed to evaluate the patient here in the ER. Please see their dictation for further patient course, plan, disposition. The chart was completed utilizing [employer] Speech Voice Recognition Software. Grammatical errors, random word insertions, pronoun errors, and incomplete sentences are an occasional consequence of this system due to software limitations, ambient noise, and hardware issues. Any formal questions or concerns about the content, text, or information contained within the body of this dictation should be directly addressed to the provider for clarification. Impression & Plan Anemia, ESRD (end stage renal disease) on dialysis, DM2 (diabetes mellitus, type 2), Atypical chest pain Discharge Plan Visit Data Chief Complaint: Cardiac Assessment Stated Complaint: CHEST PAIN, HERE MULTIPLE TIMES FOR SAME ED Provider: Taylor Rodarte ED Midlevel Provider: Farooq Patel Discharge Problem: Anemia, ESRD (end stage renal disease) on dialysis, DM2 (diabetes mellitus, type 2), Atypical chest pain Patient Disposition: Admitted As Inpatient Discharge Instructions Interventions: ED Discharge Assessment Last Done: 05/20/24 06:10
--- NOTE | 2024-05-20 07:11 | XRay Report ---
SINGLE VIEW CHEST CLINICAL HISTORY: Atypical chest pain FINDINGS: An AP, portable, upright chest radiograph is compared to study dated 05/18/2024 and correlat ed with chest CT dated 04/20/2024. The heart is enlarged. The pulmonary vasculature is congested. Ther e is mild dependent atelectasis The lungs and pleural spaces are otherwise clear. No pneumothorax is seen. The bony thorax is grossly intact. Vascular stents project over the right axilla and the medias tinum. IMPRESSION: Cardiomegaly with no active disease in the chest. ACT 112: Negative or not required by law. Electronically signed by: North Quintero M.D. 05/20/2024 7:10 AM
[2024-05-20 07:42] LABS: Troponin I High Sensitivity 73.3 pg/ml (0-14)
[2024-05-20] MEDS ORDERED: SODIUM CHLORIDE 0.9% 1,000 ML IV PRN (07:44)
[2024-05-20] MEDS ORDERED: ALBUTEROL HFA 8 GM INHALER INH PRN (08:09)
--- NOTE | 2024-05-20 08:13 | Communication Note ---
Date of Service: May 20, 2024 Patient is high risk for instent thrombosis; stent was complex placement and less than 1 month old Cannot hold ASA/Plavix
[2024-05-20] MEDS: INSULIN ASPART PER UNIT CHARGE SC SCH (09:36)
[2024-05-20] MEDS: METOPROLOL SUCC 25MG EXT REL TAB PO SCH (09:40)
[2024-05-20] MEDS: ASPIRIN 81 MG ECTAB PO SCH (09:40)
[2024-05-20] MEDS: CLOPIDOGREL BISULFATE 75 MG TAB PO SCH (09:40)
[2024-05-20] MEDS: PANTOprazole 40 MG in SYRINGE 0 ML IV SCH (09:40)
[2024-05-20] MEDS: buPROPion XL 150 MG TABCR PO SCH (09:45)
[2024-05-20] MEDS: ROSUVASTATIN CALCIUM 20 MG TAB PO SCH (09:45)
[2024-05-20] MEDS: NEPHROCAPS PO SCH (09:45)
[2024-05-20] MEDS: carBAMazepine 200 MG TABLET PO SCH (09:45)
[2024-05-20] MEDS: GABAPENTIN 100 MG CAP PO SCH (09:45)
[2024-05-20] MEDS: LORazepam 0.5 MG TAB PO PRN (09:49)
--- NOTE | 2024-05-20 11:46 | Gastrointestinal Consultation ---
Date of Consultation May 20, 2024 Assessment & Plan (1) Anemia: (2) Chest pain: Plan Difficult situation given recent stent placement within the past 2 weeks resulting in the need for uninterrupted Plavix & Aspirin. She has ongoing chest pain. Did communicate with hospitalist today who notified me that the patient was being transferred to a tertiary center due to her high risk cardiac needs and ongoing anemia. Would advise continuing to monitor H/H & transfusing suppo rtively while hospitalized here. Supervising Physician Co-Signing Physician Notes Likely hemorrhoidal bleeding. Patient is being transferred to [facility] due to ongoing cardiac issues and unstable angina. History of Present Illness Reason for Consultation: Worsening anemia Attending Physician: Jaida Martinez MD History of Present Illness Patient is a 38 yo female with ESRD on HD recently admitted for chest pain and had a stent placed during an admission 2 weeks ago. She is on Aspirin & Plavix. GI has been following patient since 2022 due to anemia & rectal bleeding. She had an EGD and colonoscopy in [address] Thayer for this issue without significant findings. She was seen during her last admission for this issue and recommendations were made for colorectal surgery due to large bleeding hemorrhoids. She has not yet established with them since her last discharge. It was noted by GI during her last admission that she could not have repeat colonoscopy & EGD until she is able to hold her Aspirin & Plavix. Recommendations were made to consider CTA if there was concern regarding other sources of GI bleeding outside of her hemorrhoidal bleeding. She returned to the ED with further chest pain. Troponin elevated, but to lesser degree than last admission. She notes her hemorrhoids bleed frequently throughout the day. H/H currently 7/22.6, which is slightly lower than the time of her discharge recently. She is going to dialysis today. Allergies Allergy/AdvReac Type Severity Reaction Status Date / Time cefaclor Allergy Intermediate Rash Verified 04/29/24 00:26 Cephalosporins Allergy Intermediate Rash Verified 04/29/24 00:26 amoxicillin AdvReac Intermediate VOMITING Verified 04/29/24 00:26 clavulanic acid AdvReac Intermediate VOMITING Verified 04/29/24 00:26 Home Medications Medication Instructions Recorded Confirmed Type albuterol sulfate 2.5 mg/3 mL 2.5 mg inhalation Q4H PRN 06/08/23 05/20/24 History (0.083 %) solution for nebulization Shortness Of Breath Or Wheezing albuterol sulfate 90 mcg/actuation 2 puff inhalation Q6H PRN 06/08/23 05/20/24 History aerosol inhaler Shortness Of Breath Or Wheezing carbamazepine 200 mg tablet 200 mg PO AMPM 06/08/23 05/20/24 History hydroxyzine HCl 25 mg tablet 25 mg PO Q6H PRN Anxiety 06/08/23 05/20/24 History lorazepam 0.5 mg tablet 0.5 mg PO Q8 PRN Anxiety 06/08/23 05/20/24 History mometasone-formoterol HFA 200 2 puff inhalation BID 06/08/23 05/20/24 History mcg-5 mcg/actuation aerosol inhaler (Dulera) vitamin B complex-vitamin C-folic 1 tab PO DAILY 06/08/23 05/20/24 History acid 0.8 mg tablet (Renal-Rika) benzonatate 100 mg capsule 200 mg PO TID PRN Cough 08/29/23 05/20/24 History calcium acetate(phosphat bind) 667 2,001 mg PO UD 08/29/23 05/20/24 History mg capsule cinacalcet 90 mg tablet 90 mg PO QDD 08/29/23 05/20/24 History medroxyprogesterone 150 mg/mL 150 mg IM UD 08/29/23 05/20/24 History intramuscular suspension (Depo-Provera) hydrocortisone 1 %-pramoxine 1 % 1 applic MI QID PRN itching #10 04/11/24 05/20/24 Rx rectal foam (Proctofoam HC) grams lidocaine 5 % topical ointment 1 applic topical QID PRN pain #30 04/11/24 05/20/24 Rx grams bupropion HCl 150 mg 24 hr tablet, 150 mg PO QAM 04/17/24 05/20/24 History extended release mirtazapine 7.5 mg tablet 7.5 mg PO HS 04/17/24 05/20/24 History varenicline 0.5 mg tablet 0.5 mg PO DAILY #30 tabs 04/30/24 05/20/24 Rx aspirin 81 mg tablet,delayed 81 mg PO QAM #30 tabs 05/09/24 05/20/24 Rx release clopidogrel 75 mg tablet 75 mg PO QAM #30 tabs 05/09/24 05/20/24 Rx metoprolol succinate 25 mg 25 mg PO BID #60 tabs 05/09/24 05/20/24 Rx tablet,extended release 24 hr polyethylene glycol 3350 17 gram 17 g PO BID 30 days #60 ea 05/09/24 05/20/24 Rx oral powder packet (Miralax) rosuvastatin 20 mg tablet 20 mg PO QAM #30 tabs 05/09/24 05/20/24 Rx gabapentin 100 mg capsule 200 mg (2 x 100 mg) PO TID #180 05/10/24 05/20/24 Rx caps pantoprazole 40 mg tablet,delayed 40 mg PO BID #60 tabs 05/10/24 05/20/24 Rx release Patient History Medical History Mood disorder Anxiety disorder, unspecified Abnormal chest xray Elevated lactic acid level Transaminitis Pneumonia Metabolic encephalopathy Acute non-ST elevation myocardial infarction (NSTEMI) Pulmonary edema Acute hyperkalemia Acute alteration in mental status Renal failure (ARF), acute on chronic Encephalopathy Facial fracture GI bleed ESRD (end stage renal disease) on dialysis Symptomatic anemia Tobacco abuse DVT prophylaxis Fistula right arm (currently being used) and left arm Dialysis patient SATURDAY/SAT/SATURDAY AT [facility] GERD (gastroesophageal reflux disease) Bipolar disorder Restless leg syndrome Peripheral neuropathy Asthma rare res inh use History of abnormal cervical Papanicolaou smear Elevated troponin Acute electrocardiogram changes Surgical History H/O eye surgery LASER SURGERY LEFT History of surgery left arm d/t clot in arm from AV fistula use @ [facility] History of surgery (~09/09/20) perm cath > since removed History of colonoscopy Kidney transplant recipient 2013 AT [facility] History of tooth extraction three TOOTH History of cardiac cath 2016 NO STENTS AVF (arteriovenous fistula) bilat upper arms ---currently using right for dialysis Family History Grandmother Hx of CABG Mother Diabetes Father Crohn's disease Grandfather (Maternal) Diabetes Uncle Diabetes Grandmother (Maternal) Family history of reaction to anesthesia difficulty waking with colonoscopy Social History Smoking Status: Never smoker Tobacco Type: Cigarettes Cigarettes Per Day: 20; Second Hand Exposure: No; Do You Dip or Chew Tobacco: No; Tobacco Cessation Education Requested by Patient: No Hx Alcohol Use: No Hx Substance Use: No Preferred Language: Danish Communication Ability: Effective Entry Level Financial Analyst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 Beliefs That Will Affect Care: None marital status: Single Current Living Situation: Alone Current Living Situation Comment: boyfriend recently kicked patient out of house pt reports How many Children do You have: 3 Other Information That Helps Us Care for You: No Feels Safe at Home: Yes Safety Concerns: Feels Safe At This Time Assistive Devices: None Review of Systems Gastrointestinal: + blood in stools; no abdominal pain Physical Exam Constitutional: no acute distress Gastrointestinal (Abdomen): normal bowel sounds, soft, nontender, no hepatosplenomegaly Psychiatric: Orientation: alert and oriented x 3 Results & Data Vital Signs (Past 12 Hours) Vital Signs Temp Pulse Pulse Pulse Resp BP BP 05/20/24 11:00 80 157/77 H 05/20/24 10:48 80 152/80 H 05/20/24 10:38 82 148/69 H 05/20/24 10:26 36.6 C 85 05/20/24 10:04 36.8 C 83 16 119/76 05/20/24 09:49 36.8 C 83 16 115/75 05/20/24 09:27 36.8 C 83 16 135/80 05/20/24 06:10 87 16 127/75 05/20/24 04:33 86 12 133/78 05/20/24 04:05 88 05/20/24 03:55 90 05/20/24 03:55 05/20/24 03:54 36.7 C 90 18 129/79 Pulse Ox O2 Del Method 05/20/24 11:00 05/20/24 10:48 05/20/24 10:38 05/20/24 10:26 05/20/24 10:04 100 05/20/24 09:49 100 05/20/24 09:27 100 05/20/24 06:10 100 Room Air 05/20/24 04:33 99 05/20/24 04:05 05/20/24 03:55 100 Room Air 05/20/24 03:55 100 Room Air 05/20/24 03:54 100 Room Air PG Care Time/CCT Total # of Minutes Spent Total Time Spent with Patient: Total time spent is greater than 50% in coordination of care (as documented) at patient's floor/unit and/or counseling patient: Coding Level of Care Code 53771 OFFICE CONSULT LVL M Diagnoses Anemia D64.9 Anemia type: unspecified type Chest pain R07.9 Chest pain type: unspecified (1) Anemia Anemia type: unspecified type Qualified Code(s): D64.9 - Anemia, unspecified (2) Chest pain Chest pain type: unspecified Qualified Code(s): R07.9 - Chest pain, unspecified
[2024-05-20] MEDS: EPOETIN ALFA 20,000 UNITS/ML VIAL IV ONE (11:48)
[2024-05-20] MEDS: MoRPHine SULFATE 2 MG/ML CARP IV STA (12:10)
--- OUTSIDE RECORDS SUMMARY | 2024-05-20 13:02 | External Medical Summary | Summary of Care ---
Author Name Unknown Organization [facility] Address [address] [place] [address] Phone [phone] Care Team Providers Care Strap Cutter Name Role Phone Adolph Aldridge MD Primary Care Provider [phone] Reason for Visit * Reason Onset Date Comments Appointment 05/11/2024 Encounter Details Date Type Department Care Team (Late st Contact Info) Description 05/11/2024 Engineering Inspection Assistant Telephone Care Coordination and Integration [address] [place] [address] Kaitlyn Sandoval, ROSEY [address] [place], [place] [id number] Appointment Allergies Active Allergy Reactions Criticality Noted Date Comments Amoxicillin Low 01/27/2021 Other reaction(s): VOMITING Cefaclor Rash Low 11/23/2011 Cephalosporins Rash Low 05/16/1999 documented as of this encounter (statuses as of 05/18/2024) Medications Medication Sig Dispensed Refills Start Date End Date Status Calcium Acetate (Phos Binder) 667 MG Oral Capsule (Phoslo) Take 3 Caps by mouth three times a day with meals. 270 Cap 3 11/03/2020 Active Renal Vitamin 0.8 MG Oral Tablet Take 1 Tablet by mouth daily. 08/10/2020 Active Compressor NebulizerIndicatio ns:Mild intermittent asthma [...] 24 Tablet 03/14/2022 Active OneTouch Delica Plus [id number] ns:DM type 2 with diabetic peripheral neuropathy [...] day E11.9 100 Strip 11 05/21/2022 Active Omeprazole 20 MG Oral Capsule Delayed Release (PriLOSEC)Indicati ons:Gastroesophage al reflux disease, unspecified whether esophagitis present Take 1 Capsule by mouth in the morning. 1 hour before the first meal of the day. 90 Capsule 3 08/29/2022 Active LORazepam 0.5 MG Oral Tablet (Ativan)Indication s:Panic attack TAKE 1 TABLET BY MOUTH EVERY 8 HOURS NEEDED FOR PANIC ATTACKS AND BEFORE DIALYSIS Strength: 0.5 mg 20 Tablet 01/23/2023 Active carBAMazepine ER 200 MG Oral Tablet Extended Release 12 Hour (Tegretol-Xr) Take 1 Tablet by mouth 2 times a day in the morning and at bedtime. Active Cinacalcet HCl 90 MG Oral Tablet (Sensipar) Take 1 tablet by mouth daily with dinner 30 Tablet 11 08/16/2023 Active Mirtazapine 7.5 MG Oral Tablet (Remeron) [...] hemoglobin A1c goal of less than 7.0% ([facility]) Use to check sugars continuously. E 11.9 change every 10 days 3 Each 11 01/06/2024 Active hydrOXYzine HCl 25 MG Oral Tablet TAKE 1 TABLET BY MOUTH EVERY 6 HOURS NEEDED FOR ANXIETY 02/12/2024 Active Dexcom G7 Proposal Development Manager Device USE DAILY TO CHECK BLOOD SUGARS CONTINUOUSLY (DX CODE E11.9) 01/11/2024 Active Varenicline Tartrate 1 MG Oral TabletIndications: Tobacco use Take 1 Tablet by mouth in the morning and 1 Tablet before bedtime. As directed on box.. 60 Tablet 3 02/20/2024 Active medroxyPROGESTERon e Acetate 150 MG/ML Intramuscular Suspension Prefilled Syringe (Depo-Provera) INJECT 150 MG INTRAMUSCULARLY (INTO A LARGE MUSCLE) ONCE EVERY 3 MONTHS 1 mL 03/26/2024 Active Lidocaine 5 % External Ointment Apply topically to affected area 4 times a day as needed for Pain or Hemorrhoids. 04/14/2024 Active Gabapentin 100 MG Oral Capsule (Neurontin) Take 2 Capsules by mouth in the morning and 2 Capsules before bedtime. Active documented as of this encounter (statuses as of 05/18/2024) Active Problems Problem Noted Date Diagnosed Date [...] as of this encounter (statuses as of 05/18/2024) Resolved Problems Problem Noted Date Diagnosed Date [...] and PP sugars <120. Report levels to [facility] department weekly. 10. Advised patient that Glyburide, Metformin, and insulin may be safely used during for the control of blood sugar levels. Alexandra will begin her insulin therapy today. 11. Dietary consult to be done to instruct patient on appropriate nutrition and diet to aid in control of blood sugars. 12. Recommend urine culture each trimester. 13. Recommend [facility] ultrasound for limited anatomy at 12-14 [...] 01/29/20 17 Overview: 03/19/2011 Needs enrolled in [facility] once MA active. Marva CURRIE- Enrolled 03/27/2011 Marva CURRIE Patient declines due [...] as of this encounter (statuses as of 05/18/2024) Immunizations Name Administration Dates Next Due COVID-19 [...] Date Recorded PHQ Adult Total Score 0 05/11/2024 Hunger Vital Sign Answer Date Recorded Within [...] encounter Miscellaneous Notes * Telephone Encounter - Zoya Hines LPN - 05/18/2024 2:03 PM EDT Pt has an appt 05/19. * Telephone Encounter - Kaitlyn Sandoval RN - 05/11/2024 11:35 AM EDT Patient was discharged from [facility] on 05/10/2024 and is in need of a 3-5 day hospital discharge follow up appointment. Please contact patient to schedule a hospital discharge appointment. Of note, she does attend dialysis at [facility] on Mondays, Wednesdays and Fridays. Thanks, Kaitlyn Sandoval RN, BSN Float Engineering Inspection Assistant [phone] documented in this encounter Plan of Treatment Upcoming Encounters Date Type Department Care Team (Latest Contact Info) Description 05/19/2024 11:00 AM EDT Office Visit Gynecology/Obstetr [facility] [address] [place] [address] Heraclio Matthews MD [address] [place] [phone] 06/09/2024 7:00 AM EDT Hospital Encounter CRS Waiting [facility], Cardiac Recovery Suite Waiting Unit, [address] [place] [address] Diamond Mcgowan MD [address], [place] [phone] 06/09/2024 7:00 AM EDT - 06/09/2024 8:00 AM EDT Surgery CRS Waiting [facility], Cardiac Recovery Suite Waiting Unit, H [address] [place] [facility] [place] [address] Diamond Mcgowan MD [address] [place] [address] PTCA, CARDIAC ANGIOPLASTY, PERCUTANEOUS, 1 ARTERY 06/09/2024 7:00 AM EDT Office Visit Cardiology [facility] [place] [address] [place] [facility] [place] [address] [facility] Cardiac Recovery [facility] [address] [facility], [place] [phone] 07/07/2024 12:30 PM EST Office Visit Orthopaedics [facility] [address] [place] [address] Ary Rwoe MD [address] [place] [address] 09/01/2024 1:40 PM EST Office Visit [facility] [address] [place] [phone] Adolph Aldridge MD [address] [place] [address] 04/01/2025 2:40 PM EDT Telemedicine Neurology [address] [place] [phone] Eros Marks, DO [address] [facility] [place] [phone] Scheduled Procedures Name Priority Associated Diagnoses Date/Ti me PTCA, CARDIAC ANGIOPLASTY, PERCUTANEOUS, 1 ARTERY Chronic total occlusion of coronary artery 06/09/2024 7:00 AM EDT COLONOSCOPY FLEXIBLE PROXIMAL DIAGNOSTIC Recall Iron deficiency anemia, unspecified iron [...] 03/10/2022 (Patient Declined After Education) Depression Monitoring 05/11/2025 05/11/2024 Colonoscopy 2030 03/29/2023, 01/2018, 10/01/2017 Pneumococcal Vaccine: [...] this encounter Medical Devices Implanted Type Area Foreign Language Interpreter Device Identifier Shelf Expiration Date Model / Serial / Lot Stent Protege Gps [id number] - [id number] Implanted:Qty : 1 on 09/29/2020 by Carmelo Ramos MD at OR [facility] Left: Chest [employer] : VASCULAR [id number] 09/20/2022 [id number] / / [id number] Stent Viab [id number] - [id number] Implanted:Qty : 1 on 04/16/2023 by Carmelo Ramos MD at OR [facility] Right: Subclavian [employer] [id number] 01/26/2026 [id number] / [id number] / [id number] documented as of this encounter Advance Directives [...] Power of Attor mamadou? No Care Teams Strap Cutter Relationship Specialty Start Date End Date Adolph Aldridge MD [address] [place] [address] PCP - General Family Medicine 10/21/18 documented as of this encounter
--- NOTE | 2024-05-20 13:34 | Nephrology Consultation ---
Date of Consultation May 20, 2024 Assessment & Plan (1) ESRD on dialysis: HD today w/ moderately aggressive UF of 4-4.5L goal keeping SBP > 110 and after transfusion using L AVF given R arm pain using R K slihgly elevated 5.4 > will improve w/ HD no heparin on hd ->next HD on 05/22 or as needs dictate hgb 7 this am > gave pRBC as well as epo 20K units; reluctant to give higher dose w/ active coronary concerns (2) Coronary artery disease due to calcified coronary lesion: primary service considering [facility] to evaluate more urgently for feasibility of coronary intervention (3) Rectal bleeding: hemorrhoids > and on obligate AC after stent >transfuse to keep hgb >8 History of Present Illness Reason for Consultation: dialysis Requesting Physician: Dr Cunningham Attending Physician: Jaida Martinez MD History of Present Illness 38 y/o F whom I'm asked to see for dialysis needs was admitted this AM after presenting with chest pain s/p recent coronary stent and with ongoing rectal bleeding, presenting hgb 7. PMH includes 05/07/24 L heart cath w/ urgent distal R coronary artery stent and severe multivessel coronary disease on aspirin and plavix, TTE w/ HF/ hypokinesis (EF 35%); hx large bleeding hemorrhoids, DM2, HTN, GERD, hx of failed renal transplant, bipolar disorder/anxiety, restless leg syndrome; hx of acute thrombosis of brachiocephalic vein, s/p recent pelvic fracture (second one / likely related to renal osteodystrophy) causing her pain and somewhat limiting ambulation. She is frequently nonadherent to OP treatments d/t uncontrolled anxiety and/or other psychosocial issues. In particular this summer she has had extended housing insecurity and multiple court appearances. pt tells me her chest pain has for now resolved and today does not mention pelvic pain; she is completely anuric; no falls, no n/v, no cough palpitations or sob and no edema. no f/c or rash. she had a unit of pRBC; she is getting dialysis today w/ goal of 4L UF Allergies Allergy/AdvReac Type Severity Reaction Status Date / Time cefaclor Allergy Intermediate Rash Verified 04/29/24 00:26 Cephalosporins Allergy Intermediate Rash Verified 04/29/24 00:26 amoxicillin AdvReac Intermediate VOMITING Verified 04/29/24 00:26 clavulanic acid AdvReac Intermediate VOMITING Verified 04/29/24 00:26 Home Medications Medication Instructions Recorded Confirmed Type albuterol sulfate 2.5 mg/3 mL 2.5 mg inhalation Q4H PRN 06/08/23 05/20/24 History (0.083 %) solution for nebulization Shortness Of Breath Or Wheezing albuterol sulfate 90 mcg/actuation 2 puff inhalation Q6H PRN 06/08/23 05/20/24 History aerosol inhaler Shortness Of Breath Or Wheezing carbamazepine 200 mg tablet 200 mg PO AMPM 06/08/23 05/20/24 History hydroxyzine HCl 25 mg tablet 25 mg PO Q6H PRN Anxiety 06/08/23 05/20/24 History lorazepam 0.5 mg tablet 0.5 mg PO Q8 PRN Anxiety 06/08/23 05/20/24 History mometasone-formoterol HFA 200 2 puff inhalation BID 06/08/23 05/20/24 History mcg-5 mcg/actuation aerosol inhaler (Dulera) vitamin B complex-vitamin C-folic 1 tab PO DAILY 06/08/23 05/20/24 History acid 0.8 mg tablet (Renal-Rika) benzonatate 100 mg capsule 200 mg PO TID PRN Cough 08/29/23 05/20/24 History calcium acetate(phosphat bind) 667 2,001 mg PO UD 08/29/23 05/20/24 History mg capsule cinacalcet 90 mg tablet 90 mg PO QDD 08/29/23 05/20/24 History medroxyprogesterone 150 mg/mL 150 mg IM UD 08/29/23 05/20/24 History intramuscular suspension (Depo-Provera) hydrocortisone 1 %-pramoxine 1 % 1 applic [place] QID PRN itching #10 04/11/24 05/20/24 Rx rectal foam (Proctofoam HC) grams lidocaine 5 % topical ointment 1 applic topical QID PRN pain #30 04/11/24 05/20/24 Rx grams bupropion HCl 150 mg 24 hr tablet, 150 mg PO QAM 04/17/24 05/20/24 History extended release mirtazapine 7.5 mg tablet 7.5 mg PO HS 04/17/24 05/20/24 History varenicline 0.5 mg tablet 0.5 mg PO DAILY #30 tabs 04/30/24 05/20/24 Rx aspirin 81 mg tablet,delayed 81 mg PO QAM #30 tabs 05/09/24 05/20/24 Rx release clopidogrel 75 mg tablet 75 mg PO QAM #30 tabs 05/09/24 05/20/24 Rx metoprolol succinate 25 mg 25 mg PO BID #60 tabs 05/09/24 05/20/24 Rx tablet,extended release 24 hr polyethylene glycol 3350 17 gram 17 g PO BID 30 days #60 ea 05/09/24 05/20/24 Rx oral powder packet (Miralax) rosuvastatin 20 mg tablet 20 mg PO QAM #30 tabs 05/09/24 05/20/24 Rx gabapentin 100 mg capsule 200 mg (2 x 100 mg) PO TID #180 05/10/24 05/20/24 Rx caps pantoprazole 40 mg tablet,delayed 40 mg PO BID #60 tabs 05/10/24 05/20/24 Rx release Patient History Medical History Mood disorder Anxiety disorder, unspecified Abnormal chest xray Elevated lactic acid level Transaminitis Pneumonia Metabolic encephalopathy Acute non-ST elevation myocardial infarction (NSTEMI) Pulmonary edema Acute hyperkalemia Acute alteration in mental status Renal failure (ARF), acute on chronic Encephalopathy Facial fracture GI bleed ESRD (end stage renal disease) on dialysis Symptomatic anemia Tobacco abuse DVT prophylaxis Fistula right arm (currently being used) and left arm Dialysis patient SATURDAY/SAT/SATURDAY AT [facility] GERD (gastroesophageal reflux disease) Bipolar disorder Restless leg syndrome Peripheral neuropathy Asthma rare res inh use History of abnormal cervical Papanicolaou smear Elevated troponin Acute electrocardiogram changes Surgical History H/O eye surgery LASER SURGERY LEFT History of surgery left arm d/t clot in arm from AV fistula use @ [facility] History of surgery (~09/09/20) perm cath > since removed History of colonoscopy Kidney transplant recipient 2013 AT [facility] History of tooth extraction three TOOTH History of cardiac cath 2016 NO STENTS AVF (arteriovenous fistula) bilat upper arms ---currently using right for dialysis Family History Grandmother Hx of CABG Mother Diabetes Father Crohn's disease Grandfather (Maternal) Diabetes Uncle Diabetes Grandmother (Maternal) Family history of reaction to anesthesia difficulty waking with colonoscopy Social History Smoking Status: Former smoker Tobacco Type: Cigarettes Cigarettes Per Day: 20; Second Hand Exposure: No; Do You Dip or Chew Tobacco: No; Hx Alcohol Use: No Hx Substance Use: No Preferred Language: Ugandan Communication Ability: Effective Operation Supervisor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 Beliefs That Will Affect Care: None marital status: Single Current Living Situation: Alone Current Living Situation Comment: boyfriend recently kicked patient out of house pt reports How many Children do You have: 3 Feels Safe at Home: Yes Assistive Devices: Crutches Review of Systems 2 Review of Systems: All systems reviewed & are unremarkable except as noted in HPI & below Physical Exam 2 Constitutional: well developed, well nourished, cooperative and + lethargic (w/ pain meds on board); no acute distress ENMT: Mouth: + dry oral mucous membranes Respiratory: normal respiratory effort Auscultation: + diminished lung sounds Musculoskeletal: Extremities: strength 5/5 throughout Skin: no rashes, warm and dry Neurologic: sandy, fluent though limited speech after morphine on HD, no tremor Psychiatric: Orientation: oriented x 3; + not alert (fatigued/lethargic) Results & Data Vital Signs (Past 12 Hours) Vital Signs Temp Pulse Pulse Pulse Resp BP BP 05/20/24 13:00 82 135/65 05/20/24 12:45 80 162/68 H 05/20/24 12:30 79 158/63 H 05/20/24 12:15 80 148/65 H 05/20/24 12:00 78 122/77 05/20/24 11:45 80 152/73 H 05/20/24 11:30 36.3 C L 79 131/67 05/20/24 11:15 79 158/76 H 05/20/24 11:00 80 157/77 H 05/20/24 10:48 80 152/80 H 05/20/24 10:38 82 148/69 H 05/20/24 10:26 36.6 C 85 05/20/24 10:04 36.8 C 83 16 119/76 05/20/24 09:49 36.8 C 83 16 115/75 05/20/24 09:27 36.8 C 83 16 135/80 05/20/24 06:10 87 16 127/75 05/20/24 04:33 86 12 133/78 05/20/24 04:05 88 05/20/24 03:55 90 05/20/24 03:55 05/20/24 03:54 36.7 C 90 18 129/79 Pulse Ox O2 Del Method 05/20/24 13:00 05/20/24 12:45 05/20/24 12:30 05/20/24 12:15 05/20/24 12:00 05/20/24 11:45 05/20/24 11:30 05/20/24 11:15 05/20/24 11:00 05/20/24 10:48 05/20/24 10:38 05/20/24 10:26 05/20/24 10:04 100 05/20/24 09:49 100 05/20/24 09:27 100 05/20/24 06:10 100 Room Air 05/20/24 04:33 99 05/20/24 04:05 05/20/24 03:55 100 Room Air 05/20/24 03:55 100 Room Air 05/20/24 03:54 100 Room Air Laboratory Results 05/20/24 04:07 05/20/24 06:29
[2024-05-20 14:27] VITALS: TEMP 97.9
--- NOTE | 2024-05-20 15:10 | Discharge Summary ---
Discharge Summary Date of Service May 20, 2024 Principal Dx & Hospital Course #1 = Principal Diagnosis (1) Chest pain: Ms. Alexandra Arguello is a 38y/o F with PMHx of diet-controlled DM type II, ESRD on hemodialysis, history of acute thrombosis of brachiocephalic vein, HTN, cardiomegaly, GERD, restless leg syndrome, history of chest pains, history of syncope and collapse, history of migraine, history of anemia [baseline Hgb ~9- 11], history of transplant rejection, history of depression with anxiety, bipolar disorder and other problems listed below who presented to the ED via EMS for evaluation of multiple complaints. She was recently admitted 04/29/24-04/30/24 for evaluation of chest pain. And once more on 05/05-05/10 where she underwent underwent LHC on 05/07 with placement of stent in rPDA. Patient also with anemia, hgb down to 7.5 prompting transfusion of 1 UPRBC on 05/06. Patient with robust response to unit administered. GI following and notes that anemia warrants further investigation, however, deferred as cardiac issues addressed. Patient presented to ED on 05/15 for bleeding, but then once more 05/20 for the same. Patient unable to make it to [place] for CRS. 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 Patient with hgb 7.0 with transfusion goal of 8.0 Given complex medical issues with anemia and necessary DAPT, transfer to [place] for Cards and CRS eval #Acute on chronic anemia, c/f blood loss iso ?hemorrhoidal bleed #Abdominal Pain: Hgb 8 on admission, baseline Hgb ~9-11 per chart review. CTAP without contributing findings Hgb goal >8.0 iso new cardiac concerns transfuse PRN. GI evaluated, would warrant C-scope however, will defer given cardiac concerns Iron 32, tibc 201, ferritin elevated Defer to Nephrology for further optimization IV PPI BID. Continue uninterrupted DAPT Plan for transfer for CRS and Cards support iso severe obstructive CAD #Recent NSTEMI #Obstructive Coronary artery disease s/p ARIEL rPDA 05/07 #Severe Coronary artery disease #Syncopal Episode #Atypical chest pain #New Heart failure with reduced EF 35-40% likely 2/2 Ischemic cardiomyopathy patient with multiple syncopal episodes, ECHO with reduced EF and new wall motion abnormalities patient with recurrent episodes of chest pain, but EKG negative of acute changes ECHO with severe hypokinesis of apex and midseptal/inferior wall patient s/p LHC on 05/07 with stent to rPDA Follow cardiology recommendations for optimization/GDMT -Transitioned to Metoprolol Succinate BID -ASA and plavix -continue statin #Asthma: Stable, continue home meds. #DM Type II: No home agents, diet-controlled. SSI while inpatient, BSG checks ACHS. Hgb A1c was 5.6% on 04/20/24. #Hyperkalemia #ESRD on Hemodialysis: Follows w/ Dr. Leah Nieves. HD on MWF HD per nephrology Plan for HD on saturday the discharge #Chronic Thrombocytopenia: Plt count stable, follow daily w/ AM labs. Other Chronic Medical Conditions: Depression w/ anxiety, bipolar disorder --> Can continue home medications for these specific conditions. Notes For Next Care Provider Medication Changes From Visit None Admission HPI Per Admitting Provider History obtained from patient and records. Medical history significant for chronic systolic heart failure (EF 40 to 45%, TTE 2023), CAD status post recent stent, hypertension, ESRD on HD, history of FSGS status post failed renal transplantation, DM2, diet controlled, anxiety/mood disorder, colonic polyps/diverticulosis, RLS, hx pelvic fracture, chronic anemia (baseline hemoglobin of 8-9), history of migraine, medical noncompliance, ongoing tobacco abuse. Recent [facility] confinement May 05 to 2023 for rectal bleeding and NSTEMI. Patient found to have EF of 35 to 40% on TTE. Severe multivessel vessel coronary artery disease on cardiac catheterization. Subsequent PCI of distal RCA with ARIEL. Dual antiplatelet Rx with aspirin and Plavix recommended without hold for 6 months as per cardiology note. Outpatient colonoscopy and colorectal evaluation for hemorrhoids recommended by GI service. Patient left AMA due to court date as per discharge note. Patient with worsening LGIB without abdominal pain since leaving hospital. Compliant with home meds. Intermittent SOB symptoms. Denies OTC NSAID intake. 05/15 ER visit for SOB and anemia. Hemoglobin noted to be at baseline from recent confinement. Patient discharged. 05/18 ER visit for left-sided chest pain with SOB symptoms. Hemoglobin noted to be 7.4. Patient comfortable at time of discharge from the ER. Patient roused from sleep this a.m. with substernal achy pain similar to attacks in the past. SOB and dizziness without unusual cough symptoms. No response to Tylenol intake at home. Continued rectal bleeding without unusual abdominal pain. Patient consulted ER for evaluation. Medical History as above 2022 EGD showed gastritis, duodenal mucosal changes 2022 colonoscopy : poor preparation Surgical History : Vascular procedures, section, cystoscopy, knee surgery, eye surgery, BTL, renal biopsy, kidney transplant Family History : SLE, Crohn's disease, high blood pressure, depression Personal/Social history past tobacco abuse, no EtOH intake, disabled Admission Exam Per Admitting Provider GENERAL: Comfortable, obese, looks older than stated age, texting on her phone during encounter, no respiratory distress SKIN: Pallor, warm HEENT: Pale palpebral conjunctivae, no ptosis, dry buccal mucosa NECK : Supple, short neck, no tenderness CHEST : Decreased breath sounds, no tenderness HEART : RRR, no obvious murmurs ABDOMEN: Some distention, nontender EXTREMITIES : Minimal LE swelling, no LE tenderness, upper extremity AV grafts, no other conspicuous deformities noted NEUROLOGIC : Coherent, no facial asymmetry, no other gross focality Discharge Exam Constitutional WD/WN, vitals as above Respiratory normal respiratory effort, lungs clear to auscultation Cardiovascular RRR, no murmur, no edema Updated Medication List Medication Instructions Recorded Confirmed Type albuterol sulfate 2.5 mg/3 mL 2.5 mg inhalation Q4H PRN 06/08/23 05/20/24 History (0.083 %) solution for nebulization Shortness Of Breath Or Wheezing albuterol sulfate 90 mcg/actuation 2 puff inhalation Q6H PRN 06/08/23 05/20/24 History aerosol inhaler Shortness Of Breath Or Wheezing carbamazepine 200 mg tablet 200 mg PO AMPM 06/08/23 05/20/24 History hydroxyzine HCl 25 mg tablet 25 mg PO Q6H PRN Anxiety 06/08/23 05/20/24 History lorazepam 0.5 mg tablet 0.5 mg PO Q8 PRN Anxiety 06/08/23 05/20/24 History mometasone-formoterol HFA 200 2 puff inhalation BID 06/08/23 05/20/24 History mcg-5 mcg/actuation aerosol inhaler (Dulera) vitamin B complex-vitamin C-folic 1 tab PO DAILY 06/08/23 05/20/24 History acid 0.8 mg tablet (Renal-Rika) benzonatate 100 mg capsule 200 mg PO TID PRN Cough 08/29/23 05/20/24 History calcium acetate(phosphat bind) 667 2,001 mg PO UD 08/29/23 05/20/24 History mg capsule cinacalcet 90 mg tablet 90 mg PO QDD 08/29/23 05/20/24 History medroxyprogesterone 150 mg/mL 150 mg IM UD 08/29/23 05/20/24 History intramuscular suspension (Depo-Provera) hydrocortisone 1 %-pramoxine 1 % 1 applic [place] QID PRN itching #10 04/11/24 05/20/24 Rx rectal foam (Proctofoam HC) grams lidocaine 5 % topical ointment 1 applic topical QID PRN pain #30 04/11/24 05/20/24 Rx grams bupropion HCl 150 mg 24 hr tablet, 150 mg PO QAM 04/17/24 05/20/24 History extended release mirtazapine 7.5 mg tablet 7.5 mg PO HS 04/17/24 05/20/24 History varenicline 0.5 mg tablet 0.5 mg PO DAILY #30 tabs 04/30/24 05/20/24 Rx aspirin 81 mg tablet,delayed 81 mg PO QAM #30 tabs 05/09/24 05/20/24 Rx release clopidogrel 75 mg tablet 75 mg PO QAM #30 tabs 05/09/24 05/20/24 Rx metoprolol succinate 25 mg 25 mg PO BID #60 tabs 05/09/24 05/20/24 Rx tablet,extended release 24 hr polyethylene glycol 3350 17 gram 17 g PO BID 30 days #60 ea 05/09/24 05/20/24 Rx oral powder packet (Miralax) rosuvastatin 20 mg tablet 20 mg PO QAM #30 tabs 05/09/24 05/20/24 Rx gabapentin 100 mg capsule 200 mg (2 x 100 mg) PO TID #180 05/10/24 05/20/24 Rx caps pantoprazole 40 mg tablet,delayed 40 mg PO BID #60 tabs 05/10/24 05/20/24 Rx release Hospital Stay Data Consultations 05/20/24 04:56 ED Decision to Admit Stat 05/20/24 05:45 Consult Nephrology Routine 05/20/24 05:48 Consult Gastroenterology Routine 05/20/24 14:43 Burn CD for patient Stat Pending Results Patient Have Any Pending Studies at Discharge: No Discharge Instructions Given to Patient (Per Discharging Provider) Ms. Alexandra Arguello is a 38y/o F with PMHx of diet-controlled DM type II, ESRD on hemodialysis, history of acute thrombosis of brachiocephalic vein, HTN, cardiomegaly, GERD, restless leg syndrome, history of chest pains, history of syncope and collapse, history of migraine, history of anemia [baseline Hgb ~9- 11], history of transplant rejection, history of depression with anxiety, bipolar disorder and other problems listed below who presented to the ED via EMS for evaluation of multiple complaints. She was recently admitted 04/29/24-04/30/24 for evaluation of chest pain. And once more on 05/05-05/10 where she underwent underwent LHC on 05/07 with placement of stent in rPDA. Patient also with anemia, hgb down to 7.5 prompting transfusion of 1 UPRBC on 05/06. Patient with robust response to unit administered. GI following and notes that anemia warrants further investigation, however, deferred as cardiac issues addressed. Patient presented to ED on 05/15 for bleeding, but then once more 05/20 for the same. Patient unable to make it to [place] for CRS. 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 Patient with hgb 7.0 with transfusion goal of 8.0 Given complex medical issues with anemia and necessary DAPT, transfer to [place] for Cards and CRS eval #NSTEMI #Obstructive Coronary artery disease s/p ARIEL rPDA 05/07 #Severe Coronary artery disease #Syncopal Episode #Atypical chest pain #New Heart failure with reduced EF 35-40% likely 2/2 Ischemic cardiomyopathy patient with multiple syncopal episodes, ECHO with reduced EF and new wall motion abnormalities patient with recurrent episodes of chest pain, but EKG negative of acute changes ECHO with severe hypokinesis of apex and midseptal/inferior wall patient s/p LHC on 05/07 with stent to rPDA Follow cardiology recommendations for optimization/GDMT -Transitioned to Metoprolol Succinate BID -ASA and plavix -continue statin #Acute on chronic anemia, c/f blood loss iso ?hemorrhoidal bleed #Abdominal Pain: Hgb 8 on admission, baseline Hgb ~9-11 per chart review. CTAP without contributing findings Hgb goal >8.0 iso new cardiac concerns transfuse PRN. GI evaluated, would warrant C-scope however, will defer given cardiac concerns Iron 32, tibc 201, ferritin elevated Defer to Nephrology for further optimization IV PPI BID. Continue uninterrupted DAPT #Asthma: Stable, continue home meds. #DM Type II: No home agents, diet-controlled. SSI while inpatient, BSG checks ACHS. Hgb A1c was 5.6% on 04/20/24. #Hyperkalemia #ESRD on Hemodialysis: Follows w/ Dr. Leah Nieves. HD on MWF HD per nephrology Plan for HD on saturday the discharge #Chronic Thrombocytopenia: Plt count stable, follow daily w/ AM labs. Other Chronic Medical Conditions: Depression w/ anxiety, bipolar disorder --> Can continue home medications for these specific conditions. Total Time Total Time Spent Total Time Spent (In Minutes): 45
[2024-05-20 15:24] VITALS: BP 136/86; PULSE 84
[2024-05-20 15:28] LABS: Hematocrit (blood only) 28.5 % (37.0-47.0); Hemoglobin 9.1 g/dl (12.0-16.0)
[2024-05-20] MEDS: FLUTICASONE/VILANTEROL 200/25MCG 14 PUFFS/INHALER INH SCH (15:31)
[2024-05-20] MEDS ORDERED: CINACALCET HCL 90 MG TAB PO SCH (16:30)
[2024-05-20] MEDS: ACETAMINOPHEN 1,000 MG/100 ML VIAL IV STA (16:34)
[2024-05-20] MEDS ORDERED: MIRTAZAPINE TAB 15 MG TAB PO SCH (21:00)
--- NOTE | 2024-05-20 22:25 | Electrocardiogram Report ---
Test Reason : Blood Pressure : */* mmHG Vent. Rate : 90 BPM Atrial Rate : 90 BPM P-R Int : 182 ms QRS Dur : 106 ms QT Int : 400 ms P-R-T Axes : 54 -44 18 degrees QTcB Int : 490 ms Normal sinus rhythm Left axis deviation Moderate voltage criteria for LVH, may be normal variant Poor R wave progression, consider anterior DC vs. lead placement vs. LVH Prolonged QT Abnormal ECG When compared with ECG of 18-May-2024 21:30, QRS axis Shifted left Confirmed by Johny Rodriguez ([id number]) on 05/20/2024 10:25:12 PM Referred By: REFERRED SELF Confirmed By: Johny Rodriguez
== END 2024-05-20 17:18 | disposition short-term general hospital (02) | DRG 393 ==
LOC: ED 03:51 → EDINP 05:43 → 2E 06:10

== ENCOUNTER 2024-06-29 05:07 | Inpatient (IN) ==
--- OUTSIDE RECORDS SUMMARY | 2024-06-29 05:17 | External Medical Summary | Summary of Care ---
Author Name Unknown Organization [facility] Address [address] [place] [address] Phone [phone] Care Team Providers Care Form Grader Operator Name Role Phone Evi Aldridge MD Primary Care Provider [phone] Reason for Visit * Reason Comments eRx-Medication Refill Encounter Details Date Type Department Care Team (Late st Contact Info) Description 06/26/2024 Refill [facility] [address] [place] [address] Evi Aldridge MD [address] [place] [address] Allergies Active Allergy Reactions Criticality Noted Date Comments Amoxicillin Low 01/27/2021 Other reaction(s): VOMITING Cefaclor Rash Low 11/23/2011 Cephalosporins Rash Low 05/16/1999 documented as of this encounter (statuses as of 06/26/2024) Medications Medication Sig Dispensed Refills Start Date End Date Status Calcium Acetate (Phos Binder) 667 MG Oral Capsule (Phoslo) Take 3 Caps by mouth three times a day with meals. 270 Cap 3 11/04/19 21 Active Renal Vitamin 0.8 MG Oral Tablet Take 1 Tablet by mouth daily. 08/10/20 20 Active Compressor NebulizerIndicati ons:Mild intermittent asthma with exacerbation Inhale via nebulizer. 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 24 Tablet 03/14/20 22 Active OneTouch Delica Plus [id number] ons:DM type 2 with diabetic peripheral neuropathy (HCC),Type 2 diabetes mellitus with hemoglobin A1c goal of less than 7.0% (HCC) use 1 LANCET to TEST BLOOD SUGAR four times a day. 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 1 hour before the first meal of the day. 90 Capsule 3 08/29/19 23 Active LORazepam 0.5 MG Oral Tablet (Ativan)Indicatio ns:Panic attack TAKE 1 TABLET BY MOUTH EVERY 8 HOURS NEEDED FOR PANIC ATTACKS AND BEFORE DIALYSIS Strength: 0.5 mg 20 Tablet 01/24/20 23 Active carBAMazepine ER 200 MG Oral Tablet Extended Release 12 Hour (Tegretol-Xr) Take 1 Tablet by mouth 2 times a day in the morning and at bedtime. Active Cinacalcet HCl 90 MG Oral Tablet (Sensipar) Take 1 tablet by mouth daily with dinner 30 Tablet 11 08/16/20 23 Active Mirtazapine 7.5 MG Oral Tablet (Remeron) Take 1 Tablet by mouth at bedtime. Active Benzonatate 100 MG Oral CapsuleIndication s:Chronic cough Take 2 Capsules by mouth 3 times a day as needed for Cough. 30 Capsule 1 12/19/19 24 Active Albuterol Sulfate HFA 108 (90 Base) MCG/ACT Inhalation Aerosol SolutionIndicatio ns:Chronic cough,Upper respiratory tract infection, unspecified type Inhale 2 Puffs by mouth every 4 hours as needed for Wheezing. 18 g 6 12/24/19 24 Active Dexcom G7 SensorIndications :Type 2 diabetes mellitus with hemoglobin A1c goal of less than 7.0% ([facility]) Use to check sugars continuously. E 11.9 change every 10 days 3 Each 11 01/06/20 24 Active hydrOXYzine HCl 25 MG Oral Tablet TAKE 1 TABLET BY MOUTH EVERY 6 HOURS NEEDED FOR ANXIETY 02/12/20 24 Active Dexcom G7 Wood Heel Fitter Machine Device USE DAILY TO CHECK BLOOD SUGARS CONTINUOUSLY (DX CODE E11.9) 01/11/20 24 Active Lidocaine 5 % External Ointment Apply topically to affected area 4 times a day as needed for Pain or Hemorrhoids. 04/14/20 24 Active Gabapentin 100 MG Oral Capsule (Neurontin) Take 2 Capsules by mouth in the morning and 2 Capsules before bedtime. Active Clopidogrel Bisulfate 75 MG Oral Tablet (Plavix) Take 1 Tablet by mouth in the morning. Active Polyethylene Glycol 3350 17 GM Oral Packet (MiraLax) Take 1 Packet by mouth in the morning and 1 Packet before bedtime. Active Aspirin 81 MG Oral Tablet Chewable Take 1 Tablet by mouth in the morning. Active Acetaminophen 325 MG Oral Tablet (Tylenol) Take 3 Tablets by mouth every 6 hours as needed for Pain, Mild. 30 Tablet 05/23/20 24 Active buPROPion HCl ER (XL) 150 MG Oral Tablet Extended Release 24 Hour (Wellbutrin XL)Indications:De pression with anxiety Take 1 Tablet by mouth in the morning. 30 Tablet 5 05/23/20 24 Active Atorvastatin Calcium 80 MG Oral Tablet (Lipitor) Take 1 Tablet by mouth every afternoon. 30 Tablet 05/23/20 24 Active Metoprolol Succinate ER 50 MG Oral Tablet Extended Release 24 Hour (toPROL XL) Take 1 Tablet by mouth in the morning and 1 Tablet before bedtime. 60 Tablet 5 05/23/20 24 Active amLODIPine Besylate 2.5 MG Oral Tablet (Norvasc) Take 1 Tablet by mouth in the morning. 30 Tablet 5 05/23/20 24 Active Varenicline Tartrate 1 MG Oral Tablet (Chantix)Indicati ons:Tobacco use Take 1 tablet by mouth twice daily 60 Tablet 2 06/05/20 24 Active medroxyPROGESTERo ne Acetate 150 MG/ML Intramuscular Suspension Prefilled Syringe (Depo-Provera) INJECT 150 MG INTRAMUSCULARLY (INTO A LARGE MUSCLE) ONCE EVERY 3 MONTHS 1 mL 06/26/20 Active medroxyPROGESTERo ne Acetate 150 MG/ML Intramuscular Suspension Prefilled Syringe (Depo-Provera) INJECT 150 MG INTRAMUSCULARLY (INTO A LARGE MUSCLE) ONCE EVERY 3 MONTHS 1 mL 03/26/20 24 024 Discontinued documented as of this encounter (statuses as of 06/26/2024) Active Problems Problem Noted Date Diagnosed Date Chronic total occlusion of coronary artery 06/09 S/P primary angioplasty with coronary stent 04/27 Bleeding hemorrhoids 05/21/2024 Coronary artery disease involving coquille coronar y artery 05/21/2024 HFrEF (heart failure with reduced ejection fract ion) 05/21/2024 Food insecurity 03/02/2024 Overview: Per [facility] Protocol Closed nondisplaced fracture of pelvis with rout ine healing 08/31/2023 Major depressive disorder, recurrent, 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 Report levels to [facility] department weekly. 10. Advised patient that Glyburide, Metformin, and insulin may be safely used during for the control of blood sugar levels. Alexandra will begin her insulin therapy today. 11. Dietary consult to be done to instruct patient on appropriate nutrition and diet to aid in control of blood sugars. 12. Recommend urine culture each trimester. 13. Recommend [facility] ultrasound for limited anatomy at 12-14 weeks, for full anatomy at 18-20 weeks, and for echocardiography at 22-24 weeks. 14. Start testing with twice weekly NST and weekly MATTHEW beginning at 32 weeks or earlier if any evidence of uncontrolled blood sugars, renal abnormalities, or HTN. 15. Recommend [facility] growth ultrasound every 4 weeks after [...] 01/29/20 17 Overview: 03/19/2011 Needs enrolled in [facility] once MA active. Marva RN- Enrolled [...] as of this encounter (statuses as of 06/26/2024) Immunizations Name Administration Dates Next Due COVID-19 mRNA, LNP-s, No Pre serve, 2-Dose Series (Moderna) 12/14/2020,11/16/2020 H1N1 2009 Influenza, Intranasal 08/11/2009 MMR - Measles/Mumps/Rubella Vaccine 10/11/2011 Pneumococcal Conjugate Vacc, 13 Valent (Prevnar) 03/10/2020 Pneumococcal Polysaccharide PPV23 (Pneumovax) 03/26/2017,12/05/2006 Seasonal Influenza Vac., MDV , IM, 0.5 mL (Fluzone) 05/06/2017,05/05/2016,06/25/2013,08/05,07/02/2011,05/05/2009 Seasonal Influenza, PF, 6 M & above, IM , (FluLaval or Fluzone) 05/26/2023,05/26/2020,06/11/2019,05/02 TDAP, Age 7 and older, IM (Adacel) [...] have concerns for your saf ety? No 05/20/2024 Do you have concerns for you r family's safety? (Household - for ages 0-17 years) Not on file 05/20/2024 Utilities Answer Date Recorded Do you have trouble paying y our heating, water, or electric bill? No 05/20/2024 Is your family able to pay t he heat, water, or electric bill? (Household - for ages 0-17 years) Not on file 05/20/2024 Does your family have access to good internet? (Household - for ages 0-17 years) Not on file 05/20/2024 Employment Status Answer Date Recorded Are you [...] to medical visits or work? Never True 05/20/2024 Does your family have a hard time getting a ride to doctors visits? (Household - for ages 0-17 years) Not on file 05/20/2024 Has lack of transportation k ept you from medical appointments, meetings, work, or from getting things needed for daily living? Check all that apply. No 05/20/2024 Do you (or your family) have trouble finding or paying for a ride (transportation)? (Household - for ages 0-17 years) Not on file 05/20/2024 Housing Stability Answer Date Recorded Do you currently live in a s helter or have no steady place to sleep at night? No 05/20/2024 READ ONLY Do you think you a re at risk of becoming homeless? No 05/20/2024 Does your family worry about paying for your home or becoming homeless? (Household - for ages 0-17 years) Not on file 0 05/20/2024 Are you homeless or worried that you might be in the future? No 05/20/2024 Are you (or your family) chiquita eless or worried that you might be in the future? (Household - for ages 0-17 years) Not on file Food Insecurity Answer Date Recorded Do you need food for this week? No 05/20/2024 Are you able to get enough f ood for your family? (Household - for ages 0-17 years) Not on file 05/20/2024 Does your family need food t his week? (Household - for ages 0-17 years) Not on file 05/20/2024 Do you always have enough fo od for your family? (Household - for ages 0-17 years) Not on file 05/20/2024 Sex and Gender Information Value Date Recorded [...] encounter Miscellaneous Notes * Telephone Encounter - Evi Aldridge MD - 06/26/2024 7:22 PM EDTSigned Prescriptions: Disp Refills medroxyPROGESTERone Acetate 150 MG/ML Intr*1 mL 0 Sig: INJECT 150 MG INTRAMUSCULARLY (INTO A LARGE MUSCLE) ONCE EVERY 3 MONTHS Authorizing Provider: EVI ALDRIDGE * Telephone Encounter - Shannan Fitzpatrick LPN - 06/26/2024 2:54 PM EDTPending Prescriptions: Disp Refills medroxyPROGESTERone Acetate 150 MG/ML Intr*1 mL 0 Sig: INJECT 150 MG INTRAMUSCULARLY (INTO A LARGE MUSCLE) ONCE EVERY 3 MONTHS * Telephone Encounter - Josh Lopez - 06/26/2024 1:23 PM EDTPending Prescriptions: Disp Refills medroxyPROGESTERone Acetate 150 MG/ML Intr*1 mL 0 Sig: INJECT 150 MG INTRAMUSCULARLY (INTO A LARGE MUSCLE) ONCE EVERY 3 MONTHS documented in this encounter Plan of Treatment Upcoming Encounters Date Type Department Care Team (Late st Contact Info) Description 07/07/2024 12:30 PM EST Office Visit Orthopaedics [facility] [address] [facility] [place] [address] Ary Rowe MD 132 [facility] [place] [address] 09/01/2024 1:40 PM EST Office Visit [facility] [address] [place] [address] Evi Aldridge MD [address] [place] [address] 10/19/2024 10:00 AM EST Office Visit Cardiology, [facility] [address] [facility] [place] [address] Farooq Ross DO 132 [facility] [place] [address] 04/01/2025 2:40 PM EDT Telemedicine Neurology [address] [place] [address] Eros Marks DO [address] [facility] [place] [address] Scheduled Procedures Name Priority [...] 05/12/2023 05/12/2020, 04/2018, 09/25/2013, Additional history exists Influenza Vaccine (FLU shot) (#1) 2024 05/26/2023, 05/26/2020, 05/26/2020, Additional history exists HbA1c 12/09/2024 06/10/2024, 04/27, 08/30/2023, Additional history exists Depression Monitoring 05/11/2025 05/11/2024 Colonoscopy 2030 05/22/2024, 04/27, 03/29/2023, Additional history exists Pneumococcal Vaccine: Pediatrics (0 to 5 Years) and At-Risk Patients (6 to 64 Years) (4 of 4 - PPSV23 or PCV20) 2050 03/10/2020, 03/26/2017, 12/05/2006 Hepatitis B Vaccine Completed 05/21/1998, 12/18/1997, 11/17/1997 RETIRED - COLONOSCOPY-EVERY 5 YRS AGES 18-100 Discontinued 05/22/2024, 05/22/2024, 03/29/2023, Additional history exists HPV (Gardasil) Vaccine Aged Out No lo nger eligible based on patient's age to complete this topic MENINGOCOCCAL (MENACTRA/MENVEO) Aged Out No longer eligible based on patient's age to complete this topic documented as of this encounter Medical Devices Implanted Type Area Pen Ruler Operator Device Identifier Shelf Expiration Date Model / Serial / Lot Stent Protege Gps [id number] - [id number] Implanted:Qty : 1 on 09/29/2020 by Carmelo Ramos MD at OR [facility] Left: Chest [employer] : VASCULAR [id number] 09/20/2022 [id number] / / [id number] Stent Viab [id number] - [id number] Implanted:Qty : 1 on 04/16/2023 by Carmelo Ramos MD at OR [facility] Right: Subclavian [employer] [id number] 01/26/2026 [id number] / [id number] / [id number] Stent Synergy Xd Mr [id number] - [id number] Implanted:Qty : 1 on 06/09/2024 by Diamond Mcgowan MD at [facility] [employer] [id number] 01/21/2026 [id number] / / [id number] documented as of this encounter Advance Directives * Full Code (Latest Code Status on File) Date Activated Date Inactivated Comments 06/09/2024 9:58 AM 06/10/2024 7:16 PM This order reflects the patients wishes and were consensually agreed upon. Question Answer Comments Discussion of Advance Directives occurred with: Patient Does the patient have a Living Will? No Does the patient have Health Care Power of Attor mamadou? No * Full Code Date Activated Date Inactivated Comments 05/20/2024 8:40 PM 05/23/2024 10:14 PM This order reflects the patients wishes and were consensually agreed upon. Question Answer Comments Discussion of Advance Directives occurred with: Patient * Full Code Date Activated Date Inactivated Comments 08/30/2023 3:26 [...] Discussion of Advance Directives occurred with: Patient Care Teams Form Grader Operator Relationship Specialty Start Date End Date Evi Aldridge MD [address] [place] [address] PCP - General Family Medicine 10/21/18 documented as of this encounter
--- OUTSIDE RECORDS SUMMARY | 2024-06-29 05:17 | External Medical Summary ---
Author Name Unknown Address Unknown Organization : Laboratory Report Ordering Provider Test Date Status RADHAMES BILLY 06/16/2024 18:30:51 Final Observation Date Value Abnormality Reference (Units ) Status Glucose Point of Care 06/16/2024 18:30:51 99 70-120 (mg/dL) Final Performing Location
--- OUTSIDE RECORDS SUMMARY | 2024-06-29 05:17 | External Medical Summary | Summary of Care ---
Author Name Unknown Organization [facility] Address [address] [place] [address] Phone [phone] Care Team Providers Care Etcher Aircraft Name Role Phone Adolph Aldridge MD Primary Care Provider [phone] Reason for Visit * Reason Onset Date Comments Appointment 06/24/2024 Encounter Details Date Type Department Care Team (Late st Contact Info) Description 06/24/2024 Telephone Nephrology, [facility] [address] [facility] [place] [address] Leah Nieves MD [address] [place] [address] Appointment Allergies Active Allergy Reactions Criticality Noted Date Comments Amoxicillin Low 01/27/2021 Other reaction(s): VOMITING Cefaclor Rash Low 11/23/2011 Cephalosporins Rash Low 05/16/1999 documented as of this encounter (statuses as of 06/24/2024) Medications Medication Sig Dispensed Refills Start Date [...] (asthma exacerbation) 1 Each 1 03/10/2021 Active OneTouch Verio w/Device KitIndications: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 24 Tablet 03/14/2022 Active OneTouch Delica Plus [id number] ns:DM type 2 with diabetic peripheral neuropathy [...] for Wheezing. 18 g 6 12/24/2023 Active Dexcom G7 SensorIndications: Type 2 diabetes mellitus with hemoglobin A1c goal of less than 7.0% ([facility]) Use to check sugars continuously. E 11.9 change every 10 days 3 Each 11 01/06/2024 Active hydrOXYzine HCl 25 MG Oral Tablet TAKE 1 TABLET BY MOUTH EVERY 6 HOURS NEEDED FOR ANXIETY 02/12/2024 Active Dexcom G7 Flap Lining Binder Device USE DAILY TO CHECK BLOOD SUGARS CONTINUOUSLY (DX CODE E11.9) 01/11/2024 Active medroxyPROGESTERon e Acetate 150 MG/ML Intramuscular [...] as needed for Pain, Mild. 30 Tablet 05/23/2024 Active buPROPion HCl ER (XL) 150 MG Oral Tablet Extended Release 24 Hour (Wellbutrin XL)Indications:Dep ression with anxiety Take 1 Tablet by mouth in the morning. 30 Tablet 5 05/23/2024 Active Atorvastatin Calcium 80 MG Oral Tablet (Lipitor) Take 1 Tablet by mouth every afternoon. 30 Tablet 05/23/2024 Active Metoprolol Succinate ER 50 MG Oral Tablet Extended Release 24 Hour (toPROL XL) Take 1 Tablet by mouth in the morning and 1 Tablet before bedtime. 60 Tablet 05/23/2024 Active amLODIPine Besylate 2.5 MG Oral Tablet (Norvasc) Take 1 Tablet by mouth in the morning. 30 Tablet 05/23/2024 Active Varenicline Tartrate 1 MG Oral Tablet (Chantix)Indicatio ns:Tobacco use Take 1 tablet by mouth twice daily 60 Tablet 2 06/05/2024 Active documented as of this encounter (statuses as of 06/24/2024) Active Problems Problem Noted Date Diagnosed Date Chronic total occlusion of coronary artery 06/09 S/P primary angioplasty with coronary stent 04/27 Bleeding hemorrhoids 05/21/2024 Coronary artery disease involving grayling coronar y artery 05/21/2024 HFrEF (heart failure [...] as of this encounter (statuses as of 06/24/2024) Resolved Problems Problem Noted Date Diagnosed Date Resolved Date Acute blood loss anemia 05/21/2024 092 03/2024 Hyperkalemia 05/21/2024 05/23/2024 Admission for dialysis 08/30/202305/23 Food insecurity 02/04/2023 08/08/2023 Overview: Per [facility] Protocol Major depressive disorder with [...] serum HgA1C every month. Aug = 6.5, Apr = 5.9 It is optimal to keep levels below 7 outside of and below 6 during . 9. Recommend monitoring blood sugars with daily Fasting Blood Sugar and 2 hour post prandial measurements and manipulating medications to keep Fasting Blood Sugar <90 and PP sugars <120. Report levels to [facility] department weekly. 10. Advised patient that Glyburide, Metformin, and insulin may be safely used during for the control of blood sugar levels. Alexandra will begin her insulin therapy today. 11. Dietary consult to be done to instruct patient on appropriate nutrition and diet to aid in control of blood sugars. 12. Recommend urine culture each trimester. 13. Recommend [facility] ultrasound for limited anatomy at 12-14 weeks, for full anatomy at 18-20 weeks, and for echocardiography at 22-24 weeks. 14. Start testing with twice weekly NST and weekly MATTHEW beginning at 32 weeks or earlier if any evidence of uncontrolled blood sugars, renal abnormalities, or HTN. 15. Recommend [facility] growth ultrasound every 4 weeks after [...] if early screen is normal. 5. Recommend [facility] ultrasound for anatomy screen at 20 [...] as of this encounter (statuses as of 06/24/2024) Immunizations Name Administration Dates Next Due COVID-19 [...] No 01/23/2024 Does the household have a [facility] source of income? (Household - for ages [...] encounter Miscellaneous Notes * Telephone Encounter - Chinyere Mendoza RN - 06/24/2024 8:26 AM EDT TT received from Dr Nieves to set up blood transfusion for this pt who is currently receiving a treatment at [facility]. [facility] clinic notified.Spoke with Deidra. Dr Nieves updated to have pt arrive at clinic tomorrow to start at 1030. documented in this encounter Plan of Treatment Upcoming Encounters Date Type Department Care Team (Late st Contact Info) Description 07/07/2024 12:30 PM EST Office Visit Orthopaedics [facility] [address] [place] [address] Ary Rowe MD [address] [place] [address] 09/01/2024 1:40 PM EST Office Visit [facility] [address] [place] [id number] Adolph Aldridge MD [address] [place] [address] 10/19/2024 10:00 AM EST Office Visit Cardiology, [facility] [address] [place] [address] Farooq Ross DO [address] [place] [address] 04/01/2025 2:40 PM EDT Telemedicine Neurology [address] [place] [address] Eros Marks DO [address] [place] [address] Scheduled Procedures Name Priority Associated Diagnoses Date/Ti [...] this encounter Medical Devices Implanted Type Area Anesthesia Director Device Identifier Shelf Expiration Date Model / Serial / Lot Stent Protege Gps [id number] - [id number] Implanted:Qty : 1 on 09/29/2020 by Carmelo Ramos MD at OR [facility] Left: Chest [employer] : VASCULAR [id number] 09/20/2022 [id number] / / [id number] Stent Viab [id number] - [id number] Implanted:Qty : 1 on 04/16/2023 by Carmelo Ramos MD at OR [facility] Right: Subclavian [employer] [id number] 01/26/2026 [id number] / [id number] / [id number] Stent Synergy Xd Mr [id number] - [id number] Implanted:Qty : 1 on 06/09/2024 by Diamond Mcgowan MD at [facility] [employer] [id number] 01/21/2026 [id number] / [id number] documented as of this encounter Advance Directives [...] Advance Directives occurred with: Patient Care Teams Etcher Aircraft Relationship Specialty Start Date End Date Adolph Aldridge MD [address] [facility] [place] [address] PCP - General Family Medicine 10/21/18 documented as of this encounter
--- OUTSIDE RECORDS SUMMARY | 2024-06-29 05:17 | External Medical Summary | Summary of Care ---
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 Name Role Phone Adolph Aldridge MD Primary Care Provider [phone] Reason for Visit * Auth/Cert Specialty Diagnoses / Procedures Referred By Contemely t Referred To Contact Diagnoses ESRD (end stage renal disease) on dialysis (HCC) ESRD (end stage renal disease) on dialysis (HCC) [N18.6, Z99.2] Procedures INTRO CATH DIALYSIS CIRCUIT W/TRANSCATH PLACEMENT IV STENT AV FISTULOGRAM STENT & PERIPHERAL ANGIOPLASTY Balbir Santiago MD [address] [place] [address] Or [facility] [place] [address] [place] [address] Referral ID Status Reason Start Date Expiration Date Visits Re quested Visits Authorized [id number] Encounter Details Date Type Department Care Team (Latest Contact Info) Description 06/16/2024 10:38 AM EDT - 06/16/2024 7:35 PM EDT Hospital Encounter [facility], OPER[facility] RO[facility] [place] [address] [place] [address] Balbir Santiago MD [address] [place] [address] Discharge Disposition: Home - Self Care Allergies Active Allergy Reactions Criticality Noted Date Comments Amoxicillin Low 01/27/2021 Other reaction(s): VOMITING Cefaclor Rash Low 11/23/2011 Cephalosporins Rash Low 05/16/1999 documented as of this encounter (statuses as of 06/17/2024) Medications Medication Sig Dispensed Refills Start Date [...] 24 Tablet 03/14/2022 Active OneTouch Delica Plus [id number] ns:DM type 2 with diabetic peripheral neuropathy [...] hemoglobin A1c goal of less than 7.0% ([facility]) Use to check sugars continuously. E 11.9 change every 10 days 3 Each 11 01/06/2024 Active hydrOXYzine HCl 25 MG Oral Tablet TAKE 1 TABLET BY MOUTH EVERY 6 HOURS NEEDED FOR ANXIETY 02/12/2024 Active Dexcom G7 Food Services Coordinator Device USE DAILY TO CHECK BLOOD SUGARS [...] Tablet by mouth every afternoon. 30 Tablet 5 05/23/2024 Active Metoprolol Succinate ER 50 MG Oral Tablet Extended Release 24 Hour (toPROL XL) Take 1 Tablet by mouth in the morning and 1 Tablet before bedtime. 60 Tablet 5 05/23/2024 Active amLODIPine Besylate 2.5 MG Oral Tablet (Norvasc) Take 1 Tablet by mouth in the morning. 30 Tablet 5 05/23/2024 Active Varenicline Tartrate 1 MG Oral Tablet (Chantix)Indicatio ns:Tobacco use Take 1 tablet by mouth twice daily 60 Tablet 2 06/05/2024 Active documented as of this encounter (statuses as of 06/17/2024) Active Problems Problem Noted Date Diagnosed Date Chronic total occlusion of coronary artery 06/09 S/P primary angioplasty with coronary stent 04/27 Bleeding hemorrhoids 05/21/2024 Coronary artery disease involving [place] coronar y artery 05/21/2024 HFrEF (heart failure [...] as of this encounter (statuses as of 06/17/2024) Resolved Problems Problem Noted Date Diagnosed Date Resolved Date Acute blood loss anemia 05/21/202404/27 Hyperkalemia 05/21/2024 05/23/2024 Admission for dialysis 08/30/202305/23 [...] and PP sugars <120. Report levels to [facility] department weekly. 10. Advised patient that Glyburide, Metformin, and insulin may be safely used during for the control of blood sugar levels. Alexandra will begin her insulin therapy today. 11. Dietary consult to be done to instruct patient on appropriate nutrition and diet to aid in control of blood sugars. 12. Recommend urine culture each trimester. 13. Recommend [facility] ultrasound for limited anatomy at 12-14 weeks, [...] if early screen is normal. 5. Recommend [facility] ultrasound for anatomy screen at 20 weeks [...] 01/29/20 17 Overview: 03/19/2011 Needs enrolled in [facility] once MA active. Marva RN- Enrolled [...] as of this encounter (statuses as of 06/17/2024) Immunizations Name Administration Dates Next Due COVID-19 [...] Sign Reading Time Taken Comments Blood Pressure 153/71 06/16/2024 7:15 PM EDT Pulse 74 06/16/2024 7:15 PM EDT Temperature 36.7 C (98.1 F) 06/16/2024 7:00 PM ED T Respiratory Rate 14 06/16/2024 7:15 PM EDT Oxygen Saturation 98% 06/16/2024 7:15 PM EDT Inhaled Oxygen Concentration - - Weight 84.6 kg (186 lb 9.6 oz) 06/16/2024 10:48 AM EDT Height 167.6 cm (5' 6") 06/16/2024 10:48 AM EDT Body Mass Index 30.12 06/16/2024 10:48 AM EDT documented in this encounter Functional [...] Discharge Instructions * Discharge Instr - AVS* Tremaine Alejandre MD - 06/16/2024 6:35 PM EDT Discharge Date: 06/16/2024 You may call Balbir Santiago MD of the department of Vascular Surgery at the [facility] [place] [place] office in [place] at [phone] option 2. After business hours, you may call with emergency questions to [phone] and ask that the on-call Vascular Surgery provider be paged. The information below provides you with the instructions and the list of medications you need to betaking following discharge from the hospital. If you have any questions, please ask before leaving.Please carry this letter with you when you see your doctor in the clinic. If you have questions, you can reach us at the numbers above. Brief summary of your inpatient care: fistulagram Your primary diagnosis at discharge was ESRD. Your doctors during this hospitalization included: Balbir Santiago MD Inpatient test results pending: None Complications: none applicable Advance Directive Documented: Advance Directive Does the Patient have an Advance Directive? No SUPPLEMENTAL INSTRUCTIONS: Patient instructions: If you go home with bandages on your incision, please remove bandages at next dialysis session You may shower, wash and dry the incision. Do not immerse the incision in water - this includes swimming, hot tubs or bath tubs. You may drive when you no longer are taking narcotic pain medications and you feel you can quickly respond to situations that will not place others in jeopardy. Monitor the incision for signs and symptoms of infection, including redness, drainage or increased pain. If you develop a fever, contact [phone] to schedule an evaluation. Your fistula is okay to use for dialysis at your next session Follow-up in Vascular Surgery Clinic as needed. See your primary care physician (Adolph Aldridge MD) as scheduled. For routine questions, your [facility] Vascular Surgery Team prefers the use of MedTel24. MedTel24 is an online internet tool to help you meet your health care needs quickly by providing a secure, confidential way to view your health records and communicate with your [facility] Vascular SurgeryTeam. To sign up for [email or web address] go to [email or web address], "Click" [place] Now on the right side of the screen and complete the user registration information. HOW TO QUIT SMOKING Smoking is one of the hardest habits to break. About half of all those who have ever smoked have been able to quit, and most of those (about 70%) who still smoke want to quit. Here are some of the best ways to stop smoking. KEEP TRYING: It takes most smokers about 8 tries before they are finally able to fully quit. So, the more often you try and fail, the better your chance of quitting the next time! So, don't give up! GO COLD TURKEY: Most ex-smokers quit cold turkey. Trying to cut back gradually doesn't seem to work as well, perhaps because it continues the smoking habit. Also, it is possible to fool yourself by inhaling more while smoking fewer cigarettes. This results in the same amount of nicotine in your body! GET SUPPORT: Support programs can make an important difference, especially for the heavy smoker. These groups offer lectures, methods to change your behavior and peer support. Call the free national Quitline for more information. 578-BEXP-AML (025-171-8919). Low-cost or free programs are offered by many hospitals, local chapters of the [employer] (583-468-9470) and the [employer] (241-527-4424). Support at home is important too. Non-smokers can help by offering praise and encouragement. If the smoker fails to quit, encourage them to try again! VPWN-[id number] MEDICINES: For those who can't quit on their own, Nicotine Replacement Therapy (NRT) may make quitting much easier. Certain aids such as the nicotine patch, gum and lozenge are available without a prescription.However, it is best to use these under the guidance of your doctor. The skin patch provides a steady supply of nicotine to the body. Nicotine gum and lozenge gives temporary bursts of low levels of nicotine. Both methods take the edge off the craving for cigarettes. WARNING: If you feel symptoms ofnicotine overdose, such as nausea, vomiting, dizziness, weakness, or fast heartbeat, stop using these and see your doctor. PRESCRIPTION MEDICINES: After evaluating your smoking patterns and prior attempts at quitting, your doctor may offer a prescription medicine. Each has its unique advantage and side effects which your doctor can review with you. HEALTH BENEFITS OF QUITTING: The benefits of quitting start right away and keep improving the longer you go without smoking: -20 minutes: blood pressure and pulse return to normal -8 hours: oxygen levels return to normal -2 days: ability to smell and taste begins to improve as damaged nerves start to regrow -2-3 weeks: circulation and lung function improves -1-9 months: decreased cough, congestion and shortness of breath; less tired -1 year: risk of heart attack decreases by half -5 years: risk of lung cancer decreases by half; risk of stroke becomes the same as a non-smoker documented in this encounter H&P Notes * Juaquin Hobson MD - 06/16/2024 3:44 PM EDT HISTORY AND PHYSICAL EXAMINATION - Vascular Surgery [address] [address] Name: Alexandra Arguello Location: [facility]/OR Date: 06/16/2024 Time: 3:45 PM PRESENTING PROBLEM: Right BCAVF fistula problems HISTORY OF PRESENT ILLNESS: Alexandra Arguello is a 38 year old, female presenting for RUE fistulagram.. She has been complaining of pain at her arterial site during the last hour of her treatment despitegood pressures. She has a former AV graft in the left arm which was not working properly so a new fistula was created on the right. Patient did have a heart cath done last week and had stenting done at that time. HOSPITAL PROBLEM LIST: Active Problems: * No active hospital problems. 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 Metabolic acidosis 11/05/2014 Migraine without aura, intractable Multiple vessel coronary artery disease Ovarian cyst Pre-transplant evaluation for kidney transplant 02/04/2014 Status post insertion of drug eluting coronary artery stent 12/2023 ARIEL to PDA Status post insertion of drug-eluting stent into left anterior descending (LAD) artery 06/09/2024 Tobacco abuse PAST SURGICAL HISTORY: Past Surgical History: Procedure Laterality Date AV ACCESS, DIRECT ANASTOMOSIS Right 04/28/2015 ARTERIOVENOUS ANASTOMOSIS OPEN DIRECT ANY SITE performed by Carmelo Ramos MD at [facility] AV ACCESS, DIRECT ANASTOMOSIS Right 01/03/2021 ARTERIOVENOUS ANASTOMOSIS OPEN DIRECT ANY SITE performed by Carmelo Ramos MD at [facility] DELIVERY DELIVERY ONLY W/ 10/08/2011 DELIVERY AND CARE performed by ANDRA SMITH at [facility] COLONOSCOPY, DIAGNOSTIC (RECTUM) 10/01/2017 adenomatous polyp, diverticulosis, repeat 5 yrs/[facility] COLONOSCOPY, DIAGNOSTIC (RECTUM) 03/29/2023 poor prep, repeat / [facility] COLONOSCOPY, DIAGNOSTIC (RECTUM) N/A 05/22/2024 COLONOSCOPY FLEXIBLE PROXIMAL DIAGNOSTIC performed by Hema Segovia MD at ENDOSCOPY [facility] [place] CORONARY ANGIOGRAPHY W/LEFT HEART CATH 01/26/2017 CORONARY ANGIOGRAPHY W/LEFT HEART CATH performed by Andra Velasquez MD at CARDIAC LABS [facility] [place] CYSTOSCOPY 03/17/2014 With stent removal EGD, FLEXIBLE, DIAGNOSTIC 09/11/2022 mild gastric irriation on bx / [facility] EGD, FLEXIBLE,W/ENDOSCOPIC US 06/14/2017 mild-mod gastric inflammation/[facility] INSER MARI CAT,W/O PUMP;5YR/OLD 11/05/2014 INSERT TUNNELED CENTRAL VENOUS CATHETER AGE 5 OR OLDER performed by Danny Godinez MD at RADIOLOGY [facility] [place] INTRO CATH DIALYSIS CIRCUIT DX ANGIOGRAPHY FLUORO S&I Left 02/25/2020 AV FISTULOGRAM DIAGNOSTIC performed by Thoe Huang MD at OR [facility] [place] INTRO CATH DIALYSIS CIRCUIT DX ANGIOGRAPHY FLUORO S&I Right 02/06/2024 AV FISTULOGRAM DIAGNOSTIC performed by Acosta Hope MD at OR [facility] [place] INTRO CATH DIALYSIS CIRCUIT W/TRANSCATH PLACEMENT IV STENT Right 05/22/2022 AV FISTULOGRAM STENT & PERIPHERAL ANGIOPLASTY performed by Carmelo Ramos MD at OR [facility] [place] INTRO CATH DIALYSIS CIRCUIT W/TRANSLUM BALLOON ANGIOPLASTY Left 02/25/2020 AV FISTULOGRAM & PERIPHERAL ANGIOPLASTY performed by Theo Huang MD at OR [facility] [place] INTRO CATH DIALYSIS CIRCUIT W/TRANSLUM BALLOON ANGIOPLASTY Left 09/29/2020 AV FISTULOGRAM & PERIPHERAL ANGIOPLASTY performed by Carmelo Ramos MD at OR [facility] [place] INTRO CATH DIALYSIS CIRCUIT W/TRANSLUM BALLOON ANGIOPLASTY Left 11/02/2020 AV FISTULOGRAM & PERIPHERAL ANGIOPLASTY performed by Carmelo Ramos MD at OR [facility] [place] INTRO CATH DIALYSIS CIRCUIT W/TRANSLUM BALLOON ANGIOPLASTY Right 06/15/2021 AV FISTULOGRAM & PERIPHERAL ANGIOPLASTY performed by Balbir Santiago MD at OR [facility] [place] INTRO CATH DIALYSIS CIRCUIT W/TRANSLUM BALLOON ANGIOPLASTY Right 04/16/2023 AV FISTULOGRAM & PERIPHERAL ANGIOPLASTY performed by Carmelo Ramos MD at OR [facility] [place] IOF CT GUIDED NEEDLE BIOPSY 05/18/2013 CT GUIDED NEEDLE ASPIRATION BIOPSY performed by Tremaine Rodríguez PA-C at RADIOLOGY [facility] [place] KNEE ARTHROSCOPY, DIAGNOSTIC 10/27/2008 Knee Scope,Diagnostic LAPAROSCOPY; CHOLECYSTECTOMY N/A 12/18/2016 LAPAROSCOPIC CHOLECYSTECTOMY [facility] DR. DIAZ 12/18/16 LASIK SURGERY 1986 LIGATE/CUT OVIDUCT(S) 10/10/2011 REMOV MARI BENJI CATH W/O PORT 11/24/2014 REMOVAL OF TUNNELED CENTRAL VENOUS CATHETER performed by Danny Godinez MD at RADIOLOGY [facility] [place] REMOV MARI BENJI CATH W/O PORT Left 09/29/2020 REMOVAL OF TUNNELED CENTRAL VENOUS CATHETER performed by Carmelo Ramos MD at OR [facility] [place] RENAL BIOPSY, PERCUTANEOUS (TROCAR/NEEDLE) N/A 11/16/2014 RENAL BIOPSY PERCUTANEOUS performed by Fer Sharp MD at OR [facility] [place] RENAL BIOPSY, PERCUTANEOUS (TROCAR/NEEDLE) N/A 11/23/2014 RENAL BIOPSY PERCUTANEOUS performed by Fer Sharp MD at [facility] THROMBECTOMY, PERCUT, THROMBOLYTIC INJECT Left 09/29/2020 PERCUTANEOUS MECHANICAL VENOUS THROMBECTOMY performed by Carmelo Ramos MD at OR [facility] [place] TRANSCATH PLACMENT IV STENT CENTRAL DIALYSIS SEGMENT W/IMAGING Left 09/29/2020 INTRAVASCULAR STENT CENTRAL DIALYSIS SEGMENT performed by Carmelo Ramos MD at OR [facility] [place] TRANSLUMINAL BALLOON ANGIOPLASTY CENTRAL DIALYSIS SEGMENT W/IMAGING 02/06/2024 ANGIOPLASTY CENTRAL DIALYSIS SEGMENT performed by Acosta Hope MD at OR [facility] [place] TRANSPLANTATION OF KIDNEY 02/18/2014 RENAL TRANSPLANT performed by Faiza Salinas MD at OR [facility] [place] FAMILY HISTORY: Family History Problem Relation Name Age of Onset Diabetes Mother Cony Thyroid Disorder Mother Cony hyperthyroidism Gastro-intestinal disorder Father Ivan crohn's Mental Disorder Father Ivan depression - suicide Hypertension Grandmother (Maternal) Vickie Hypertension Sister Kylah Thyroid Disorder Sister Kylah faiza hypothyroidism Other (hyperlipidemia [Other]) Grandfather (Maternal) Heart Disorder Brother Ivan age 19 months - only 2 working chambers; also with esophageal problems Other (?lupus [Other]) Grandmother (Paternal) SOCIAL HISTORY: Social History Tobacco Use Smoking status: Former Current packs/day: 0.00 Average packs/day: 0.5 packs/day for 11.0 years (5.5 ttl pk-yrs) Types: Cigarettes Start date: 12/2010 Quit date: 12/2021 Years since quittin.4 Smokeless tobacco: Never Tobacco comments: 02/19/2024 smokes 1 pack per day, declined pamphlet Vaping Use Vaping status: Never Used Substance Use Topics Alcohol use: No Drug use: No CURRENT HOSPITAL MEDICATIONS: Note that completed medications (per the MAR) continue to display for 24 hours. Ordered medicationsto be given in the future also display. Current Facility-Administered Medications Medication Dose Route Frequency Provider 1/2 NSS infusion Intravenous Continuous Ami Lee PA-C sodium chloride 0.9 % flush peripheral jeison 3 mL 3 mL IV Push Q Shift Ami Lee PA-C Vancomycin (Vancocin) 1,250 mg in NSS 250 mL ivpb 1,250 mg IV Piggyback Pre-Op Ami Lee PA-C ALLERGIES: Amoxicillin, Cefaclor, and Cephalosporins ROS: Constitutional: (-) fever chills sweats or weight loss Cardiovascular: (-) negative: no chest pain, dyspnea, syncope, or palpitations Pulmonary: (-) negative: no cough, wheezing, or shortness of breath PHYSICAL EXAMINATION: Most Recent Vital Signs: BP: 159 mmHg/63 mmHg (06/16/24 1502) Pulse: 81 (06/16/24 1502) Resp: 17 (06/16/24 1502) Temp: 36.72 C (06/16/24 1502) Temp Summary: Temp Min: 36.6 C (97.9 F) Max: 36.7 C (98.1 F) SpO2: 98 % (06/16/24 1502) O2 flow rate: Supplemental O2 Delivery: Room Air, None (06/16/24 1502) Constitutional: no acute distress CV: normal rate and rhythm, no murmur, gallops or rub Chest: breath sounds normal Abdomen: normal: soft, bowel sounds normal, no masses, tenderness or organomegaly Extremities: no clubbing, cyanosis, or edema, otherwise grossly normal, warm, and dry, Right upper extremity fistula with good thrill. Appears aneurysmal with no skin thinning or ulceration. LABS: Labs reviewed as indicated below: Chemistry Panel: Lab results within last 7 days (see chart for full results) Units 06/10/24 0622 SODIUM mmol/L 134* POTASSIUM mmol/L 6.6* CHLORIDE mmol/L 90* CO2 mmol/L 29 EGFR mL/min 9* BUN mg/dL 52* CREATININE mg/dL 5.8* GLUCOSE mg/dL 116 CALCIUM mg/dL 8.3* Phosphorus mg/dL 6.2* ANION GAP mmol/L 15 Liver Function Panel: Lab results within last 7 days (see chart for full results) Units 06/10/24 0622 06/10/24 0327 Albumin g/dL 3.7* -- Triglycerides mg/dL -- 78 IMAGING: IMPRESSION and PLAN: -Plan for RUE fistulagram today -Plan to discharge to home afterwards. REFERRING PHYSICIAN: 1. @REF@ PRIMARY CARE PHYSICIAN: Adolph Aldridge MD Associated attestation - Balbir Santiago MD - 06/16/2024 6:18 PM EDT I saw and evaluated the patient today. I have reviewed the resident/fellow physician note and agree. documented in this encounter Nursing Notes * Marleni Ferrer RN - 06/16/2024 6:35 PM EDT Dual Licensed Skin Assessment completed by self and Oanh Banerjee. The patient is/has a N/A Skin Breakdown (includes non blanchable erythema): Yes - Surgical/Procedural changes only. * Ilana Aparicio RN - 06/16/2024 3:23 PM EDT Dual Licensed Skin Assessment completed by ROSEY borrero and ROSEY pendleton. The patient is/has a N/A Skin Breakdown (includes non blanchable erythema): No * Kirsten Salcido NA - 06/16/2024 10:47 AM EDT Patient does not meet criteria for testing. Pt. Is a Dialysis pt. Does not produce urine. * Tamika Alfonso RN - 06/12/2024 12:46 PM EDT Presurgery instructions sent to patient via [employer] message. Pre-operative chart review completed-instructions provided based on current medication list in [facility]. NO ANESTHESIA EVAL REQUESTED PER CASE DOCUMENTATION. PREOP PATIENT INFORMATION AND EDUCATION: Per Vascular Surgery: Please instruct pt to be NPO after MN (Nothing by mouth after midnight) Take bath shower evening before surgery and morning of surgery with Dial soap Take AM meds with sip H2O No hold on AM meds Please follow the pre-operative instructions provided by your vascular surgeon. If you have any questions regarding these instructions please contact your surgeon's office at [phone]. 24 hours prior to surgery/procedure DO NOT consume any alcohol. DO NOT use medical marijuana. DO NOT smoke or use tobacco products of any kind after midnight prior to surgery. *Using any of these products may increase your risks of procedural complications. Contact your surgeon's office if you develop any of the following within 2 weeks of surgery: A cold Infection Fever Shingles Chicken pox or exposure to chicken pox Open areas such as scrapes, cuts, cifuentes or other skin conditions Rashes GENERAL INSTRUCTIONS FOR PREPARING FOR SURGERY: BATHING INSTRUCTIONS: Bathe the evening prior to and the morning of surgery/procedure. Cleanse your body using ONLY anti-bacterial soap (eg, Dial, Safeguard) or any specific soap/cleansers and instructions provided by your surgeon (eg, Chlorhexidine). -You should brush your teeth the morning of surgery. Do NOT apply any lotions, powders, sprays, creams, oils, make-up, or deodorants after bathing. No hairspray, or nail tuvaluan on fingers or toes. Day of surgery/procedure do not use tampons. If you wear contacts wear your eyeglasses if available otherwise bring your contact supplies with you to remove them prior to your surgery/procedure. If you wear glasses or dentures, please bring cases in which you can store them during your surgery. Please remove all piercings and jewelry and leave them at home. Wear comfortable and loose clothing. -Please leave all valuables at home. -If you use a CPAP and are staying overnight, please bring your mask and tubing with you to the hospital. -If you use an assistive mobility device (walker, cane, etc), please label it with your name and bring to hospital. -An escort tractor sweeper driver is required if you are being discharged the same day of the surgery. You should have a responsible adult over the age of 18 [address] you home. This person should be present with youin the hospital at the time of discharge and for the first 24 hours after the surgery to support your needs. If you are taking a taxi home, you must have your responsible green party accompany you in the taxi ride home at the time of discharge. OR times subject to change. Please check voicemail messages the day/evening before your surgery forany updates. PRE-OP: You will be taken to the pre-op area where your vital signs (blood pressure, pulse and temperature)will be taken. Any preparations that need to be done will be done there. When it is time for your surgery, you will be taken to the operating room. PARENTS OF PEDIATRIC PATIENTS WILL BE ALLOWED TO STAY WITH THEIR CHILDREN UNTIL THEY ARE ESCORTED TO THE OPERATING ROOM OUTPATIENT SURGERY PATIENTS: After your surgery you will be taken to the Same Day Surgery Unit when you are awake and will go home from there. You will get instructions about your home care before you leave. Arrange to have someone drive you home from the hospital. You may not drive for 24 hours after anesthesia. You must havean adult stay with you at home for 24 hours after your operation. This is very important. If you are not able to comply with these guidelines, your Short Stay surgery cannot be done. ADMISSION PATIENTS: After your stay in the recovery area, you will be taken to your room. Your family may visit you in your room based on current visitation policy. If a next day discharge is expected, it is important to make arrangements for a tractor sweeper driver to take you home. Please be aware our visitation policies are subject to change Professionals, attendants, caregivers or family members are allowable visitors for patients with intellectual, developmental or cognitive disabilities, communication barriers or behavioral concerns. Because patients' and families' needs vary, they will be taken into account when applying visitation restrictions. ANESTHESIA INFORMATION This information has been prepared to help you and your family better understand the process of anesthesia, so that you may help make well-informed decisions about your care. This information is alsoprovided to guide your completion of the [facility] anesthesia consent form which addresses real, but infrequent, problems associated with anesthesia. IMPORTANT INFORMATION TO PREVENT YOUR SURGERY FROM BEING CANCELLED/ RESCHEDULED: --You are required to have a tractor sweeper driver to take you home whether you are admitted to the hospital following your surgery or not --You are required to have a responsible adult with you for the first 24 hours after surgery to support your needs Types of Anesthesia: Local Anesthesia Local anesthetic drugs (numbing drugs) are usually injected into the tissues to numb just the specific location of your body requiring minor surgery, such as an area of your hand or foot. Regional Anesthesia -Regional anesthesia involves the use of local anesthetics (numbing drugs) to numb larger areas of your body by blocking nerves to those areas. This is commonly referred to as a nerve block. Another way of performing regional anesthesia is by blocking nerves of the spinal cord by injecting numbing m edicines with great exactness around those nerves. This is called spinal or epidural anesthesia depending on exactly where the medication is injected. The type of regional anesthesia selected dependson the type of surgery and whether regional anesthesia is being done to help with pain after surgery or as a part of the anesthesia for surgery. You may remain awake, be sedated, or be given a general anesthetic depending on the type of surgery and the type of regional anesthesia performed Monitored Anesthesia Care (MAC) -Describes a range of sedation that can be given to a patient undergoing a procedure. The level of sedation usually depends on what is needed for the procedure being performed. A patient could be awake and aware of the procedure being performed but be relaxed and able to follow instructions as needed or may be unaware of what is happening and only rouse to significant stimulation. A patient may be able to speak, hear things around them, and answer questions and follow commands but is not in pain or anxious. A patient may experience varying depths of sedation during the procedure. The use of general anesthesia could result if this type of anesthesia is ineffective. General Anesthesia - Occurs by using a combination of medications to put a patient into a deep, sleep-like, unresponsive state for surgery. This is required for many surgical procedures. Under general anesthesia, a patient does not feel pain and is unaware of what is happening during the procedure. Systems in the body may not function normally while a patient is under general anesthesia. They are monitored by the anesthesia provider and may need to be assisted while a patient is under general anesthesia. For example, a breathing device may need to be placed in the airway to assist breathing and medications may need to be given to ensure that your blood pressure and heart rate remain normal. Risks of Anesthesia: Regional/Local/Nerve Blocks -Include but are not limited to, , cardiac or respiratory arrest, permanent complete paralysis, permanent nerve injury, seizure, spinal headache, backache, pain in buttocks and legs, infection, bleeding, leakage of spinal fluid, inadequate pain relief, bowel or bladder dysfunction, prolonged numbness or pain, temporary drop in blood pressure, or allergic reaction to the medications. Monitored Anesthesia Care (MAC) -Common risks include temporary dizziness, light-headedness, nausea and/or vomiting, and leakage ofintravenous fluid into the tissues with swelling or discoloration of the area or residual pain. Less common risks include, but are not limited to, , heart attack, permanent brain damage, stroke,pneumonia, blood clots, awareness, nerve stretch injury of your arm, neck or leg, permanent liver damage and allergic reaction to the medications. General Anesthesia -More common risks include temporary sore throat, pain in the neck or other muscles, dizziness, light-headedness, nausea and/or vomiting, and leakage of intravenous fluid into the tissues with swelling or discoloration of the area or residual pain. Less common risks include, but are not limited to,, heart attack, permanent brain damage, stroke, pneumonia, blood clots, irritation of the cornea of your eye, vision loss, loosened or broken teeth, or other oral injuries, awareness, nerve stretch injury of the arm, neck or leg, hoarseness, laryngospasm, permanent liver damage and allergic reaction to the medications. History of anesthesia complications: If you or a family member have had a complication related to anesthesia such as difficulty with placement of a breathing tube or a serious reaction to a medication administered for anesthesia, pleasetell your anesthesia provider. Having this information will help keep you safe while under anesthesia Nausea: A common side effect of anesthesia is nausea, but some patients do experience both nausea and vomiting. If you have experienced nausea or vomiting after anesthesia in the past, be sure to tell your anesthesia provider so medication can be given to help prevent it from happening again. Patient safety/consenting process: All surgical procedures and anesthetics have some small risks. They are dependent upon many factorsincluding the type of surgery and your medical condition. That is why it is important to know aboutany underlying medical problems, how they are treated and how they can be managed to reduce the risks of anesthesia and surgery. Thus, it is important for your anesthesia provider to ask detailed questions about your medical history, and to know what prescription medications you are taking, including dosages and schedules, as well as any over the counter or herbal medicines and supplements. You must notify the doctor of any of the following: -if you are or possibly -if you have any sensitivity to medications -present mental and physical condition -if recently consumed alcohol or non-clear liquids -if you are presently on psychiatric mood-altering drugs or other medications If you are a female of child-bearing age and you use any form of hormone-based contraception, please continue to use it and, in addition, use an alternative form of contraception, such as condoms andspermicide for a month after discharge from the hospital. This is because during the hospitalization you might receive one or more medications that may render hormone-based contraceptives ineffectivefor several days or weeks. The affected contraceptives include, but are not limited to, the usual contraceptive pills, most types of intrauterine devices, Depo-Provera shots, hormonal patches, and hormonal vaginal rings. If you are not sure, contact your primary care physician, your mathematics professor, or your surgeon to check if this warning applies to you. You may need to have invasive monitoring, which includes the insertion of catheters into your veinsand arteries. This is done to measure pressures, to take blood samples, and may be used in emergentsituations for intravenous access. This monitoring has risks including, but not limited to, injury to your arteries, lung collapse, bleeding, nerve injury as well as the risks related to anesthesia. An esophageal probe may be used to monitor your heart, this monitor has risks which include sore throat, hoarseness, difficulty with swallowing, loosened or broken teeth and esophageal injury. Major complications are rare but could include , respiratory distress, an abnormal heartbeat, infection, and bleeding. As part of the consent to administer anesthesia authorization you will discuss the following with the anesthesia doctor and his/her associates: -your present condition and diagnosis as it pertains to anesthesia or sedation administration -a description of the proposed anesthetic/sedation technique or procedure to be used -significant risks and benefits of the proposed anesthetic/sedation technique or procedure -any applicable alternatives, including their risks and benefits -if applicable, use of back-up method of contraception for 30 days after discharge -if applicable, the option of having no treatment and the potential results of this -if your procedure is in an outpatient surgery setting-the risk associated with having this procedure in this type of setting should be discussed as well as the potential need for transfer to the hospital if necessary Please be sure to have all questions that you have answered prior to signing the consent to administer anesthesia. You can make your care safer by being an active, informed patient. It is important that you are involved in your health care. Being a good patient does not mean being a silent one. If you have questions, problems, safety concerns or unmet needs, please let us know if you would like further clarification of the "Patient Rights and Responsibilities" as they pertain to you, or would like more information regarding our complaint and for grievance process, please call the site where you receive care and request to speak withthe patient advocate line. [facility]: Contact # [phone] Directions to Surgical Suite in from the Javier Entrance The Surgical Waiting Room can be found in the Lobby of [facility]. Enter through Main Lobby Entrance and the Waiting Room is directly in front of you. Proceed to check in and give them your name. Directions to Surgical Suite from the East Entrance Enter the East entrance and follow the hallway to the J elevator. Take the J elevator up to Level 1. Continue down the long hallway to the main [facility] Lobby. The Surgical Waiting Room will be on your Right. Proceed to check in and give them your Name. Directions to Surgical Suite from the Parking Garage Enter the [facility] lobby and proceed down the rodas to the left. At the end of the rodas, turn right. [facility] The [facility]ing Room will be on your Right. Proceed to check in and give them your Name. THANK YOU FOR CHOOSING [facility]! 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 Central vein angioplasty of right innominate vein (6 mm) Findings: Patent arteriovenous anastomosis. Stenotic cephalic vein in upper arm, large and tortuousthroughout. Patent cephalic arch stent. 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 We plan to proceed with fistulagram and intervention to improve access function. Description of Operation: The patient was seen in the Holding Room and the site of surgery properly noted and marked. The patient was identified by name (Alexandra Arguello), and the procedure verified. In the operating room, aTime Out was held and the above information confirmed. After satisfactory anesthesia, the right upper extremity was prepped and draped in the usual sterile fashion. The arteriovenous fistula was punctured peripherally. After a series of standard maneuvers, a 4 Gibraltarian microsheath was left within the AV fistula at the puncture site. A complete fistulagram was performed. Findings are as noted above. Next, a guidewire was threaded through the micro-sheath and this was up sized to a 7 Gibraltarian sheath. The patient was systemically heparinized. The stenotic portion of the cephalic vein was crossed with a guidewire and underwent angioplasty using a 10 mm standard angioplasty balloon. Follow-up imaging revealed a satisfactory result. Next, the stenotic right innominate vein was crossed with a guidewire and underwent angioplasty using a 6 mm standard angioplasty balloon. This was performed with a Hamlin balloon. We could not get anything larger to track despite numerous attempts and multiple catheter/wire combinations. Follow up imaging revealed significant residual stenosis. The indwelling sheath(s) were removed and the puncture site(s) were closed with a 4-0 Monocryl suture. All guidewires and catheters were removed. Hemostasis was good. Sponge count and needle counts were correct. The fistula is okay to use for dialysis at next session. If the patient continues to have ongoing symptoms, it is likely worth a clinic evaluation and consideration of cross-sectional imaging to consider next steps to address her central venous occlusion, which is made more complex by the presence of the left-sided innominate vein stent. I discussed this with the patient's mother via telephone immediately at the case conclusion. Attestation: I was present and scrubbed for the entire procedure Balbir Santiago MD Associate Vascular Surgeon Division of Vascular and Endovascular Surgery [facility] documented in this encounter Plan of Treatment Upcoming Encounters Date Type Department Care Team (Late st Contact Info) Description 07/07/2024 12:30 PM EST Office Visit Orthopaedics [facility] [address] [place] [address] Ary Rowe MD [address] [place] [address] 09/01/2024 1:40 PM EST [facility] [address] [id number] Adolph Aldridge MD [address] [place] [address] 10/19/2024 10:00 AM EST Office Visit Cardiology, [facility] [address] [place] [address] Andra Ross, DO [address] [place] [address] 04/01/2025 2:40 PM EDT Telemedicine Neurology [address] [place] [phone] Eros Marks, DO [address] [facility] [place] [address] Scheduled Orders Name Type Priority Associated Diagnoses Orde r Schedule HCG QUALITATIVE, URINE Lab STAT Pe rform Now for 1 Occurrences starting 06/16/2024 until 06/16/2024 Scheduled Procedures Name Priority Associated Diagnoses Date/Ti [...] this encounter Medical Devices Implanted Type Area Library Media Technician Device Identifier Shelf Expiration Date Model / Serial / Lot Stent Protege Gps [id number] - [id number] Implanted:Qty : 1 on 09/29/2020 by Carmelo Ramos MD at OR [facility] – [place] Left: Chest [employer] : VASCULAR [id number] 09/20/2022 [id number] / / [id number] Stent Viab [id number] - [id number] Implanted:Qty : 1 on 04/16/2023 by Carmelo Ramos MD at OR [facility] – [place] Right: Subclavian [employer] [id number] 01/26/2026 [id number] / [id number] / [id number] Stent Synergy Xd Mr [id number] - [id number] Implanted:Qty : 1 on 06/09/2024 by Diamond Mcgowan MD at CARDIAC LABS [facility] – [place] Cas[employer] [id number] 01/21/2026 [id number] / / [id number] documented as of this encounter Procedures Procedure Name Priority Date/Time Associated Diagnosis Comments GLUCOSE METER, POINT OF CARE JES 06/16/2024 6:30 PM EDT VASC PROCEDURE IN VASCULAR ANGIO SUITE Routine 06/16/2024 6:27 PM EDT POTASSIUM, WHOLE BLOOD STAT 06/16/2024 3:39 PM EDT GLUCOSE METER, POINT OF CARE JES 06/16/2024 3:19 PM EDT documented in this encounter Results * GLUCOSE METER, POINT OF CARE (06/16/2024 6:30 PM EDT) GLUCOSE - POCT 99 70 - 120 mg/dL 06/16/2024 6:32 PM EDT [facility] Blood Whole blood specimen / Unknown 06/16/2024 6:30 PM EDT 06/16/2024 6:32 PM EDT Balbir Santiago MD LAB POINT OF CARE TEST DOCKED DEVICE UNSOLICITED RESULTS [facility] [address] [place] [address] * VASC PROCEDURE IN VASCULAR ANGIO SUITE (06/16/2024 6:27 PM EDT) Narrative Scheduling, Silent - 06/16/2024 6:28 PM EDT This procedure will not be read by a Radiologist. Please see operative note. Balbir Santiago MD RAD SPECIAL PROCE GABRIEL * POTASSIUM, WHOLE BLOOD (06/16/2024 3:39 PM EDT) Potassium 5.0 3.5 - 5.1 mmol/L 06/16/2024 3:53 PM EDT [facility] Blood Venous blood specimen / Unknown Venipuncture / Unknown 06/16/2024 3:39 PM EDT 06/16/2024 3:47 PM EDT Ami Faiza Walnut PA-C LAB BLOOD ORDER [facility] [address] [place] [address] * GLUCOSE METER, POINT OF CARE (06/16/2024 3:19 PM EDT) GLUCOSE - POCT 99 70 - 120 mg/dL 06/16/2024 3:27 PM EDT [facility] Blood Whole blood specimen / Unknown 06/16/2024 3:19 PM EDT 06/16/2024 3:27 PM EDT Balbir Santiago MD LAB POINT OF CARE TEST DOCKED DEVICE UNSOLICITED RESULTS Performing Organization Address City/[facility]/ZIP Co de Phone Number [facility] [address] [place] [address] documented in this encounter Visit Diagnoses Diagnosis ESRD (end stage renal disease) on dialysis (HCC)- Primary End stage renal disease documented in this encounter Administered Medications Inactive Administered Medications - up to 3 most recent administrations Medication Order MAR Action Action Date Dose Rate Site 08/27 NSS infusion Intravenous, at 25 mL/hr, CONTINUOUS, Starting on Sat06/16/24 at 1530, Until Sat06/16/24 at 2335, Pre-Op Rate Verify 06/16/2024 6:26 PM EDT 25 mL/ hr Restarted 06/16/2024 6:13 PM EDT Continue from Pre-Op 06/16/2024 4:59 PM EDT 25 mL/hr sodium chloride 0.9 % flush peripheral jeison 3 mL 3 mL, IV Push, QSHIFT, First dose on Sat06/16/24 at 1600, Until Discontinued, Do not flush if lock, PICC, or central line not in place; IV infusing or unable to flush., Pre-Op Vancomycin (Vancocin) 1,250 mg in NSS 250 mL ivpb 1,250 mg, IV Piggyback, PREOP, 1 dose, First dose on Sat06/16/24 at 1530, Mix before administering. Send with patient to OR for administration, Pre-Op New Bag 06/16/2024 3:18 PM EDT 1,250 mg 178.33 m L/hr documented in this encounter Active and Recently Administered Medications Times are shown in EDT. Scheduled Medication Order 06/14/2024 06/15/2024 06/16/2024 sodium chloride 0.9 % flush peripheral jeison 3 mL 3 mL, IV Push, QSHIFT, First dose on Sat06/16/24 at 1600, Until Discontinued, Do not flush if lock, PICC, or central line not in place; IV infusing or unable to flush., Pre-Op 1600 (Due) Vancomycin (Vancocin) 1,250 mg in NSS 250 mL ivpb (COMPLETED) 1,250 mg, IV Piggyback, PREOP, 1 dose, First dose on Sat06/16/24 at 1530, Mix before administering. Send with patient to OR for administration, Pre-Op 1518 (New Bag - Prov ider: Ilana Aparicio RN) Continuous Medication Order 06/14/2024 06/15/2024 06/16/2024 1/2 NSS infusion Intravenous, at 25 mL/hr, CONTINUOUS, Starting on Sat06/16/24 at 1530, Until Sat06/16/24 at 2335, Pre-Op 1518 (New Bag - Prov ider: Ilana Aparicio RN)1659 (Continue from Pre-Op - Provider: Berry Mccall CRNA)181 (Paused - Provider: Berry Mccall CRNA - Comment: Switch to gravity)181 (Restarted - Provider: Berry Mccall CRNA)1826 (Rate Verify - Provider: Marleni Ferrer, RN)1906 (Stopped - Provider: Marleni Ferrre RN) PRN Medication Order 06/14/2024 06/15/2024 06/16/2024 bupivacaine HCl 30 mL, lidocaine 1 % 30 mL inj (CANCELED) ONCE PRN INTRA PROCEDURE, Starting on Sat06/16/24 at 1743, Until Sat06/16/24 at 1823, Intra-Op 1743 (Given - Provid er: Balbir Santiago MD) hEParin 5,000 Units in NSS 500 mL infusion (CANCELED) ONCE PRN INTRA PROCEDURE, Starting on Sat06/16/24 at 1728, Until Sat06/16/24 at 1823, Intra-Op 1728 (Given - Provid er: Balbir Santiago MD - Comment: prn intraop) Iopamidol (Isovue M 300) inj (CANCELED) ONCE PRN INTRA PROCEDURE, Starting on Sat06/16/24 at 1816, Until Sat06/16/24 at 1823, Intra-Op 1816 (Given - Provid er: Balbir Santiago MD) documented in this encounter Advance Directives * [...] Advance Directives occurred with: Patient Care Teams Vacuum Cleaner Mechanic Relationship Specialty Start Date End Date Adolph Aldridge MD [address] [place] [facility] [place] [address] PCP - General Family Medicine 10/21/18 documented as of this encounter
--- OUTSIDE RECORDS SUMMARY | 2024-06-29 05:17 | External Medical Summary ---
Author Name Unknown Address Unknown Organization K01:LABORATORY [facility] [place] - [address] [facility] [address] [facility] [address] Laboratory Report Ordering Provider Test Date Status DAVE URBINA 06/16/2024 15:39:12 Final Observation Date Value Abnormality Reference (Units ) Status Potassium, Whole Blood 06/16/2024 15:39:12 5.0 3.5-5.1 (mmol/L) Final Performing Location LABORATORY [facility] [place] - [address] [facility] [address]
--- OUTSIDE RECORDS SUMMARY | 2024-06-29 05:18 | External Medical Summary | Summary of Care ---
Author Name Unknown Organization [facility] Address [address] [place] [address] Phone [phone] Care Team Providers Care Internal Audit Director Name Role Phone Adolph Aldridge MD Primary Care Provider [phone] Reason for Referral * Evaluate & Treat - Unlimited Visits (Within 10 days (routine)) - Authorized Specialty Diagnoses / Procedures Referred By Adarsh mckay Referred To Contact CARDIAC REHAB / Cardiology Diagnoses 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 (HCC) S/P primary angioplasty with coronary stent Andrea Finney DO [address] [place] [address] Referral ID Status Reason Start Date Expiration Date Visits Requested Visits Authorized [id number] Authorized Specialty Services Required 4 [phone] Question Answer Referral Priority Within 10 days (routine) Where should this appointment be scheduled? [facility] Cardiac Rehabilitation Modality No Preference, either is clinically appropriate Comments Discharge Order Reason for Visit * Auth/Cert Specialty Diagnoses / Procedures Referred By Adarsh mckay Referred To Contact Diagnoses Chronic total occlusion of coronary artery Chronic total occlusion of coronary artery [I25.82] Procedures CARDIAC ANGIOPLASTY, PERCUTANEOUS, 1 ARTERY PTCA, CARDIAC ANGIOPLASTY, PERCUTANEOUS, 1 ARTERY Diamond Mcgowan MD [address] [place] [address] Crs Waiting [facility] [address] [place] [address] Referral ID Status Reason Start Date Expiration Date Visits Re quested Visits Authorized [id number] Encounter Details Date Type Department Care Team (Latest Contact Info) Description 06/09/2024 6:31 AM EDT - 06/10/2024 3:00 PM EDT Hospital Encounter [facility] Extend [facility], Cardiac Recovery Suite Extended Unit, [address], [place] [id number] Diamond Mcgowan MD [address], [place] [phone] EKG Report Discharge Disposition: Home - Self Care Allergies Active Allergy Reactions Criticality Noted Date Comments Amoxicillin Low 01/27/2021 Other reaction(s): VOMITING Cefaclor Rash Low 11/23/2011 Cephalosporins Rash Low 05/16/1999 documented as of this encounter (statuses as of 06/11/2024) Medications Medication Sig Dispensed Refills Start Date [...] Tablet 03/14/20 22 Active OneTouch Delica Plus [id number] ons:DM type 2 with diabetic peripheral neuropathy (HCC),Type 2 diabetes mellitus with hemoglobin A1c goal of less than 7.0% (HCC) use 1 LANCET to TEST BLOOD SUGAR four times a day. DX E11.9 400 Each 3 03/23/20 22 Active OneTouch Verio In Vitro Strip (Glucose Blood)Indications :DM type 1 with diabetic peripheral neuropathy ([facility]) Use up to 4 times a day [...] goal of less than 7.0% ([facility]) Use to check sugars continuously. E 11.9 change every 10 days 3 Each 11 01/06/20 24 Active hydrOXYzine HCl 25 MG Oral Tablet TAKE 1 TABLET BY MOUTH EVERY 6 HOURS NEEDED FOR ANXIETY 02/12/20 24 Active Dexcom G7 Sales Operations Specialist Device USE DAILY TO CHECK BLOOD SUGARS CONTINUOUSLY (DX CODE E11.9) 01/11/20 24 Active medroxyPROGESTERo ne Acetate 150 MG/ML Intramuscular Suspension Prefilled Syringe (Depo-Provera) INJECT 150 MG INTRAMUSCULARLY (INTO A LARGE MUSCLE) ONCE EVERY 3 MONTHS 1 mL 03/26/20 Active Lidocaine 5 % External Ointment Apply [...] by mouth in the morning. 30 Tablet 05/23/20 24 Active Atorvastatin Calcium 80 MG Oral Tablet (Lipitor) Take 1 Tablet by mouth every afternoon. 30 Tablet 05/23/20 24 Active Metoprolol Succinate ER 50 MG Oral Tablet Extended Release 24 Hour (toPROL XL) Take 1 Tablet by mouth in the morning and 1 Tablet before bedtime. 60 Tablet 05/23/20 24 Active amLODIPine Besylate 2.5 MG Oral Tablet (Norvasc) Take 1 Tablet by mouth in the morning. 30 Tablet 5 05/23/20 24 Active Varenicline Tartrate 1 MG Oral Tablet (Chantix)Indicati ons:Tobacco use Take 1 tablet by mouth twice daily 60 Tablet 2 06/05/20 24 Active Dulera 200-5 MCG/ACT Inhalation Aerosol (Mometasone Furo-Formoterol Fum) Inhale by mouth 2 Puffs in the morning AND 2 Puffs before bedtime. 39 g 3 09/21/19 22 024 Discontinued Vitron-C 65-125 MG Oral Tablet (Iron-Vitamin C 65-125 mg per tab) Take 1 Tablet by mouth in the morning. 30 Tablet 5 05/23/20 24 024 Discontinued documented as of this encounter (statuses as of 06/11/2024) Active Problems Problem Noted Date Diagnosed Date Chronic total occlusion of coronary artery 06/09 S/P primary angioplasty with coronary stent 04/27 Bleeding hemorrhoids 05/21/2024 Coronary artery disease involving flandreau coronar y artery 05/21/2024 HFrEF (heart failure [...] as of this encounter (statuses as of 06/11/2024) Resolved Problems Problem Noted Date Diagnosed Date Resolved Date Acute blood loss anemia 05/21/2024 09/2 03/2024 Hyperkalemia 05/21/2024 05/23/2024 Admission for dialysis [...] and PP sugars <120. Report levels to [facility] department weekly. 10. Advised patient that Glyburide, Metformin, and insulin may be safely used during for the control of blood sugar levels. Alexandra will begin her insulin therapy today. 11. Dietary consult to be done to instruct patient on appropriate nutrition and diet to aid in control of blood sugars. 12. Recommend urine culture each trimester. 13. Recommend [facility] ultrasound for limited anatomy at [...] 01/29/20 17 Overview: 03/19/2011 Needs enrolled in [facility] once MA active. Marva RN- Enrolled [...] as of this encounter (statuses as of 06/11/2024) Immunizations Name Administration Dates Next Due COVID-19 [...] Sign Reading Time Taken Comments Blood Pressure 126/40 06/10/2024 12:06 PM EDT Pulse 80 06/10/2024 12:06 PM EDT Temperature 36.9 C (98.4 F) 06/10/2024 12:06 PM E DT Respiratory Rate 18 06/10/2024 12:06 PM EDT Oxygen Saturation 97% 06/10/2024 12:06 PM EDT Inhaled Oxygen Concentration - - Weight 81.2 kg (179 lb) 06/09/2024 7:29 AM EDT Height 167.6 cm (5' 6") 06/09/2024 7:29 AM EDT Body Mass Index 28.89 06/09/2024 7:29 AM EDT documented in this encounter Functional [...] Discharge Instructions * Discharge Instr - AVS* Toby Norris CRNP - 06/09/2024 9:54 AM EDT Discharge Date: 06/10/[address] Mcgowan of the Department of Cardiology at [phone] during business hours for any questions or test results. For after-hours emergencies call [phone] and have your doctor paged. Scheduling services is available between the hours of 8:00 am and 9:00 pm by calling . For routine questions, your [facility] Cardiology Team prefers the use of [employer]. [employer] is an online internet tool to help you meet your health care needs quickly by providing a secure, confidential way to view your health records and communicate with your [facility] Cardiology Team. To sign up for [employer] go to [email or web address], "Click" [place] Now on the right side of the screen and complete the user registration information. The information below provides you with the instructions and the list of medications you need to betaking following discharge from the hospital. If you have any questions, please ask before leaving.Please carry this letter with you when you see your doctor in the clinic. If you have questions, you can reach us at the numbers above. Brief summary of your inpatient care: You had a heart catheterization. One coronary artery was opened using a stent and a balloon. Your primary diagnosis at discharge was coronary artery disease Your doctors during this hospitalization included: Dr. Mcgowan of the Department of Cardiology Inpatient test results pending: None Operations & Procedures: Cardiac Catheterization via groin Intervention Summary: LAD occlusion treated with 1 drug-eluting stent (2.75mm x 38mm Synergy). Proximal and mid portions of stent post-dilated with a 3.0mm and 3.25mm NC balloon. IVUS used after first post-dilation for stent optimization. Excellent angiographic result with 0% residual stenosis, AIDA 3 flow, and no evidence of dissectionor perforation. Complications: none significant Advance Directive Documented: Advance Directive Does the Patient have an Advance Directive? Not Addressed Diet: Heart healthy diet, 2 gram sodium diet Activity: leg puncture care: no lifting or pushing or pulling more than 10 lbs for 3 days, no strenuous activity for 7 days Driving: You may resume driving in 7 days . Please call your primary care physician (Adolph Aldridge MD) for an appointment within 4-6 weeks. Special Instructions: - Plavix or clopidogrel - This drug is most important for stent patients. It keeps the stent from blocking up by preventing blood clots from forming within the stent. When blood clots form, they block the stent and cause a heart attack. You should remain on Plavix for 6 months. Please call your inside sales agent before stopping Plavix for any reason. - Aspirin - You need to take aspirin even though you are on Plavix. The preferred dose of aspirin is 81 mg per day (one baby aspirin). Use the non- coated kind. You should continue to take aspirin forever unless specifically told to stop. - Statin Drugs (cholesterol pill) slow the growth of heart artery blockages. Your statin drug is Lipitor. - Nitroglycerin (nitro): Your should carry nitro at all times. When chest pain occurs take one nitro under tongue and call 911. You may take additional nitro every five minutes as needed for ongoing chest pain up to three pills. Lie down after using nitro. Do not drive after using nitro. Patients with chronic stable chest pain who frequently use nitro may not need to call 911. Ask your physician about this. - Beta blockers are important for some cardiac patients and after a heart attack. Your beta blockeris Metoprolol. - Do not use Motrin/Ibuprofen/Advil and other types of "NSAIDs" (nonsteroidal anti-inflammatory drugs) - "NSAIDs" make aspirin ineffective, can raise blood pressure, and can damage your kidneys. Try Tylenol for pain. Consult your pharmacist for questions about "NSAIDs".. Leg Puncture Site Care You may shower, but do not take any baths, go in a hot tub or swim for 7 days. The hole in your leg artery is still healing and may be sore for a week. You may develop a large bruise, which will travel down your leg over the next few weeks. This is normal. If you have sudden pain or swelling or bleeding, call 911 and hold pressure on the area. If you notice worsening pain or swelling in the area that is not relieved by Tylenol or if you develop a fever over 101 degrees F you should call your inside sales agent. If you have questions or are concerned about how your leg is healing, call the doctor who did the procedure or . Keep the site covered with a dry bandage for 24 hours then remove the bandage. You may keep the site covered until it has completely healed but it is not necessary. If you replace the bandage, it should be changed every 24 hours or if it becomes wet. Cardiovascular RISK FACTOR control YOUR RISK FACTOR TREATMENT GOALS: Controlling the factors that cause arteries to form blockages will reduce your chance of having new blockages. Work with your health care providers to control your risk factors. If you have trouble reaching these goals then ask your health care provider to work with you further until they are controlled. Diabetes - In diabetics, hemoglobin A1C is a measure of the average blood sugar over the past 3 months. The goal is less than 7.0. Hypertension - Goal is less than 120/80. High cholesterol LDL cholesterol (bad cholesterol) - goal is less than 70 mg/dl. HDL cholesterol (good cholesterol) - goal is greater than 40 mg/dl in men and 50 mg/dl in women. Triglycerides (other blood fats that are especially elevated in diabetics and pre-diabetics) - goal is less than 150 mg/dl. Your Lipid Panel Results are: 06/10/24 03:27 Triglycerides 78 Cholesterol 134 Non-HDL Cholesterol 87 HDL Cholesterol 47 (L) LDL Cholesterol 71 Tobacco - Tobacco is poison to your arteries. It will cause blockages. Continuing to smoke tobacco may lead to heart attacks, strokes, or leg amputation. You should avoid tobacco. Your goal is to notsmoke at all. Talk with your primary care provider about counseling and medications to help you stop smoking. Exercise - The [place] [employer] recommends walking 30 minutes a day most days of the week; if you have to lose weight you should walk 60-90 minutes a day. Remember that if you develop chestpain, you should stop what you are doing. Do not continue to exercise if you have chest pain. See your special activity instructions above. [place] weight - Your BMI (a measure of ideal body weight) is Body mass index is 28.89 kg/m. Your BMI should be less than 25. Your waist size also predicts risk of heart attack: a woman's waist should be less than 35 inches and a man's waist less than 40. Maintaining your ideal body weight will help your heart, reduce blood pressure, blood sugar, and cholesterol, improve or help prevent diabetes,and improve or help prevent congestive heart failure. documented in this encounter Progress Notes * Marlen Giles CRNP - 06/10/2024 11:55 AM EDT PROGRESS NOTE - [place] [facility] [place] [address] Name: Alexandra Arguello Location: [address] Date: 06/10/2024 Time: 11:56 AM Nephrology follow-up ESRD on dialysis Interval history past 24 hrs: Seen on dialysis, tolerating well Endorses feeling well on treatment today Denies: SOB, chest pain, N/V, diarrhea, or LE edema ROS otherwise negative unless mentioned above OBJECTIVE: Most Recent Vital Signs: BP: 107 mmHg/53 mmHg (06/10/241127) Pulse: 78 (06/10/241127) Resp: 20 (06/10/241127) Temp: 36.78 C (06/10/241127) Temp Summary: Temp Min: 36.6 C (97.9 F) Max: 36.8 C (98.2 F) SpO2: 98 % (06/10/24747) O2 flow rate: Supplemental O2 Delivery: Room Air, None (06/10/24747) Vital Signs last 24 Hours: Systolic BP: Most Recent Systolic BP Av.5 mmHg Min: 91 mmHg Max: 179 mmHg Temperature: Most Recent Temperature Av.7 C Min: 36.61 C Max: 36.78 C Pulse: Pulse Av.8 Min: 73 Max: 90 Respirations: Resp Av.9 Min: 13 Max: 20 SpO2: SpO2 Av.3 % Min: 97 % Max: 100 % Intake/Output Summary (Last 24 hours) at 06/10/2024 1156 Last data filed at 06/10/2024 1128 Gross per 24 hour Intake 240 ml Output 3800 ml Net -3560 ml Weight: 81.2 kg (179 lb) Physical Examination: Dialysis Access: + R UE AVF with good thrill and bruit Gen: in no acute distress, appears chronically-ill Skin: warm, dry HEENT: mucous membranes moist Neck: no JVD, supple Resp: clear bilaterally, unlabored CV: regular rate and rhythm, no bruits Abdomen: soft, nontender, nondistended Genitourinary: n/a Extremities: no LE edema Neuro: A&O, conversing appropriately Psych: appropriate IMAGING: No new imaging in last 24 hrs. Pertinent reviewed. LABS: Reviewed pertinent. Lab results within last 7 days (see chart for full results) Units 06/10/24 0622 06/09/24 0822 CREATININE mg/dL 5.8* 4.5* BUN mg/dL 52* 35* GLUCOSE mg/dL 116 134* SODIUM mmol/L 134* 138 POTASSIUM mmol/L 6.6* 5.4* ANION GAP mmol/L 15 14 CO2 mmol/L 29 32 CHLORIDE mmol/L 90* 92* Lab results within last 7 days (see chart for full results) Units 06/09/24 0822 HGB g/dL 8.7* HCT % 27.7* WBC K/uL 3.55* PLT K/uL 98* Lab results within last 7 days (see chart for full results) Units 06/10/24 0622 06/09/24 0822 Albumin g/dL 3.7* 3.9 CALCIUM mg/dL 8.3* 9.7 Phosphorus mg/dL 6.2* 5.0* Lab Results Component Value Date/Time PTH 332 (H) 11/22/2014 09:28 AM 25OHVITAMIND 11.9 (L) 10/12/2013 02:14 PM TRANSAT 34 04/28/2015 08:07 AM FERRITIN 380.9 (H) 04/28/2015 08:07 AM K 6.6 hyperkalemia Hgb 8.7 anemia of chronic disease Alb 3.7 hypoalbuminemia Impression -- PCI for CAD - slight chest pressure over chest, observe overnight. -- ESRD on HD MWF via AV fistula at [facility]/ Dr Nieves -- Anemia of renal disease -- Mineral Bone Disease (MBD) ? Plan: - dialysis today, tolerating well for goal ultrafiltration 5 L. -communicated with dialysis team, Pt ended tx at 3.5 hrs for n/v per pt request. - plan for next dialysis Fri to continue with typical OP schedule MWF - blood pressures within goal range, continue current regimen of ARCHITECTURAL EXAMINER amlodipine, metoprolol succinate, - Anemia: Epo [address] units on HD today, continue mircera in OP HD clinic - MBD: phos noted at 6.2 , continue with phos binders at mealtimes. - please obtain a renal function panel daily to include albumin and phos level - adjust medications for eGFR<15ml/min - renal dialysis diet - please monitor and record accurate intake and output for proper ultrafiltration Rx - rest of mgmt per primary team - ok to discharge post HD tx from a nephrology standing. Patient assessment and plan discussed with attending Dr. Pendleton I spent a total of 29 minutes coordinating, documenting, and providing care for this patient excluding time spent in the performance of separately billed services or time spent by another provider/QHP. ? ANGÉLICA Child 06/10/24 [email or web address] Associated attestation - Zonia Pendleton MD - 06/10/2024 12:32 PM EDT I have reviewed the advanced practitioner's documentation on the date of service referenced in note, and I agree with, and take responsibility for the plan of care. I spent a total of 15 minutes coordinating, documenting, and providing care for this patient excluding time spent in the performance of separately billed services or time spent by another provider/QHP. * Toby Norris CRNP - 06/09/2024 10:25 AM EDT PROGRESS NOTE - Cardiology [address] [address] Name: Alexandra Arguello Location: CATH/Cath Date: 06/09/2024 Time: 10:25 AM SUBJECTIVE: Post cath, patient doing well, complains of slight pressure over chest. 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 OM1 60-70% stenosis Distal RCA stent widely patent. Ostial RPDA 70% stenosis with AIDA III flow. OBJECTIVE: Most Recent Vital Signs: BP: 164 mmHg/61 mmHg (06/09/24958) Pulse: 86 (06/09/24958) Resp: 17 (06/09/24958) Temp: 36.5 C (06/09/24958) Temp Summary: Temp Min: 36.2 C (97.2 F) Max: 36.5 C (97.7 F) SpO2: 100 % (06/09/24958) O2 flow rate: Supplemental O2 Delivery: Room Air, None (06/09/24958) Vital Signs Last 24 Hours: Systolic BP: Most Recent Systolic BP Av mmHg Min: 148 mmHg Max: 164 mmHg Temperature: Most Recent Temperature Av.4 C Min: 36.22 C Max: 36.5 C Pulse: Pulse Av Min: 86 Max: 88 Respirations: Resp Av Min: 15 Max: 17 SpO2: SpO2 Av % Min: 100 % Max: 100 % IMPRESSION: - PCI PLAN: - Stay overnight for observation ANGÉLICA Helms documented in this encounter H&P Notes * Ivan Weiss CRNP - 06/09/2024 7:36 AM EDT HISTORY & PHYSICAL INTERVAL NOTE - Cardiology Service [address] [address] History and Physical Update: Name: Alexandra Arguello Location: CATH/Cath Date: 06/09/2024 Time: 7:36 AM DATE OF HISTORY AND PHYSICAL: 05/21/2024 REFERRED BY: Dr. Gerson Banegas Chief Complaint: MOTOR AND GENERATOR ASSEMBLER LAD, CP I have reviewed the H&P previously performed and examined the patient today. There are no new findings noted. Physical Examination: BP: 148 mmHg/87 mmHg (06/09/24729) Pulse: 88 (06/09/24729) Resp: 15 (06/09/24729) Temp: 36.22 C (06/09/24729) Temp Summary: Temp Min: 36.2 C (97.2 F) Max: 36.2 C (97.2 F) SpO2: 100 % (06/09/24729) O2 flow rate: Supplemental O2 Delivery: Room Air, None (06/09/24729) Cardiac: RRR. No murmur, gallop or rub Lungs: CTAB Right Radial pulse 1+ Allens test: delayed rubor Right Femoral pulse 2+ Right Femoral Bruit no Right PT pulse 1+ IV Contrast Allergy: no Contraindications to dual anti-platelet therapy: No History of anemia: Yes ASA: Received typical daily 81 mg dose Anticoagulation: No Labs reviewed as indicated below: Hgb: 9.5 GFR / sCr: 9 / 5.7 Pre-Cath Labs: Abnormal as above * Berkley Kent PA-C - 06/08/2024 7:53 AM EDT NOTE COPIED AND PASTED FROM CARDIOLOGY CONSULTATION 05/21/24 DR BANEGAS CONSULT - Cardiology [facility] [place] [address] Name: Alexandra Arguello Location: [facility] Date: 05/21/2024 Time: 1:23 PM REQUESTING SERVICE: Medicine REASON FOR CONSULT: "Rectal bleeding in setting of newly diagnosed CAD and HFmrEF" PRESENTING PROBLEM: Alexandra Arguello [facility] is seen in consultation for chest pain. 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 Patient endorses she starting experiencing chest pain on saturday when she was undergoing dialysis-describes it as sharp/stabbing, retrosternal, constant, un resolving with nitroglycerin, responds temporarily to morphine/tylenol. Says it occurs at restand has no correlation with exertion. Similar to index chest pain that happened earlier this month before PCI, however CP intensity is lower per pt. She denies any jaw claudication, neck pain or arm radiation. No diaphoreses. Dizziness present especially with dialysis. Orthopnea present and is chronic, no PND. No palpitations. TTE (05/10/24): Limited study performed to reassess LV Systolic function The left ventricle is normal in size There is moderate concentric left ventricular hypertrophy There is a small area of akinesis involving the apical septum and anterior septum. There is mild hypokinesis of the apical anterior and lateral wall all other wall segments are titus normally and overall function and wall motion have improved from prior study Left ventricular Ejection fraction= 40-45% Cardiac cath (05/05/24): -Severe Multivessel corornary artery disease with 100% mid LAD total occlusion. Distal vessel fillsvia L-L & R-L Collaterals -D1 100% Ostial occlusion. Partially fills via L-L Collaterals -Calcified bifurcation lesion with 95% distal RCA into PAV and 98% ostial RPDA -Successful PCI of distal RCA into Right posterior AV branc with single ARIEL -Angioplasty of ostial rPDA prior to stenting with multiple balloons Active cardiac meds ARCHITECTURAL EXAMINER: ASA, Plavix, Metoprolol succinate 25 mg BID, Crestor 20 mg PAST MEDICAL HISTORY: Past Medical History Past Medical History: Diagnosis Date Anxiety and depression DM Type 2 causing Renal Dz ESRD (end stage renal disease) (HCC) H/O kidney transplant 02/18/2014 HTN, goal below 140/90 Hx laparoscopic cholecystectomy 12/18/2016 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 Metabolic acidosis 11/05/2014 Migraine without aura, intractable Ovarian cyst Pre-transplant evaluation for kidney transplant 02/04/2014 Tobacco abuse PAST SURGICAL HISTORY: Past Surgical History Past Surgical History: Procedure Laterality Date AV ACCESS, DIRECT ANASTOMOSIS Right 04/28/2015 ARTERIOVENOUS ANASTOMOSIS OPEN DIRECT ANY SITE performed by Carmelo Ramos MD at [facility] AV ACCESS, DIRECT ANASTOMOSIS Right 01/03/2021 ARTERIOVENOUS ANASTOMOSIS OPEN DIRECT ANY SITE performed by Carmelo Ramos MD at [facility] DELIVERY DELIVERY ONLY W/ 10/08/2011 DELIVERY AND CARE performed by ANDRA SMITH at [facility] [place]ST[place] (RECTUM) 10/01/2017 adenomatous polyp, diverticulosis, repeat 5 yrs/[facility] COLONOSCOPY, DIAGNOSTIC (RECTUM) 03/29/2023 poor prep, repeat / [facility] CORONARY ANGIOGRAPHY W/LEFT HEART CATH 01/26/2017 CORONARY ANGIOGRAPHY W/LEFT HEART CATH performed by Andra Velasquez MD at [facility] [place]STOSCOPY 03/17/2014 With stent removal EGD, FLEXIBLE, DIAGNOSTIC 09/11/2022 mild gastric irriation on bx / [facility] EGD, FLEXIBLE,W/ENDOSCOPIC US 06/14/2017 mild-mod gastric inflammation/[facility] INSER MARI CAT,W/O PUMP;5YR/OLD 11/05/2014 INSERT TUNNELED CENTRAL VENOUS CATHETER AGE 5 OR OLDER performed by Danny Godinez MD at [facility] [place] DX ANGIOGRAPHY FLUORO S&I Left 02/25/2020 AV FISTULOGRAM DIAGNOSTIC performed by Theo Huang MD at [place] [facility] [place] DX ANGIOGRAPHY FLUORO S&I Right 02/06/2024 AV FISTULOGRAM DIAGNOSTIC performed by Acosta Hope MD at [place] [facility] [place] W/TRANSCATH PLACEMENT IV STENT Right 05/22/2022 AV FISTULOGRAM STENT & PERIPHERAL ANGIOPLASTY performed by Carmelo Ramos MD at [place] [facility] [place]IALYSIS [place] W/TRANSLUM BALLOON ANGIOPLASTY Left 02/25/2020 AV FISTULOGRAM & PERIPHERAL ANGIOPLASTY performed by Theo Huang MD at [place] [facility] [place]IALYSIS [place] W/TRANSLUM BALLOON ANGIOPLASTY Left 09/29/2020 AV FISTULOGRAM & PERIPHERAL ANGIOPLASTY performed by Carmelo Ramos MD at [place] [facility] [place]IALYSIS [place] W/TRANSLUM BALLOON ANGIOPLASTY Left 11/02/2020 AV FISTULOGRAM & PERIPHERAL ANGIOPLASTY performed by Carmelo Ramos MD at [place] [facility] [place]IALYSIS [place] W/TRANSLUM BALLOON ANGIOPLASTY Right 06/15/2021 AV FISTULOGRAM & PERIPHERAL ANGIOPLASTY performed by Balbir Santiago MD at [place] [facility] [place]IAL[place]IS [place] W/TRANSLUM BALLOON ANGIOPLASTY Right 04/16/2023 AV FISTULOGRAM & PERIPHERAL ANGIOPLASTY performed by Carmelo Ramos MD at [place] [facility] [place] GUIDED NEEDLE BIOPSY 05/18/2013 CT GUIDED NEEDLE ASPIRATION BIOPSY performed by Tremaine Rodríguez PA-C at [facility] [place] KNEE ARTHROSCOPY, DIAGNOSTIC 10/27/2008 Knee Scope,Diagnostic LAPAROSCOPY; CHOLECYSTECTOMY N/A 12/18/2016 LAPAROSCOPIC CHOLECYSTECTOMY [facility] 12/18/16 LASIK SURGERY 1986 LIGATE/CUT OVIDUCT(S) 10/10/2011 REMOV AMRI STEPHANY CATH W/O PORT 11/24/2014 REMOVAL OF TUNNELED CENTRAL VENOUS CATHETER performed by Danny Godinez MD at [facility] [place] MARI STEPHANY CATH W/O PORT Left 09/29/2020 REMOVAL OF TUNNELED CENTRAL VENOUS CATHETER performed by Carmelo Ramos MD at [place] [facility] [place] RENAL BIOPSY, PERCUTANEOUS (TROCAR/NEEDLE) N/A 11/16/2014 RENAL BIOPSY PERCUTANEOUS performed by Fer Sharp MD at [place] [facility] [place]NAL BIOPSY, PERCUTANEOUS (TROCAR/NEEDLE) N/A 11/23/2014 RENAL BIOPSY PERCUTANEOUS performed by Fer Sharp MD at [facility] THROMBECTOMY, PERCUT, THROMBOLYTIC INJECT Left 09/29/2020 PERCUTANEOUS MECHANICAL VENOUS THROMBECTOMY performed by Carmelo Ramos MD at [facility] TRANSCATH PLACMENT IV STENT CENTRAL DIALYSIS SEGMENT W/IMAGING Left 09/29/2020 INTRAVASCULAR STENT CENTRAL DIALYSIS SEGMENT performed by Carmelo Ramos MD at [place] [facility] [place] TRANSLUMINAL BALLOON ANGIOPLASTY CENTRAL DIALYSIS SEGMENT W/IMAGING 02/06/2024 ANGIOPLASTY CENTRAL DIALYSIS SEGMENT performed by Acosta Hope MD at [place] [facility] [place] TRANSPLANTATION OF KIDNEY 02/18/2014 RENAL TRANSPLANT performed by Violeta Salinas MD at [place] [facility] [place] H[place]ORY: Family History Family History Problem Relation Name Age of Onset Diabetes Mother Cony Thyroid Disorder Mother Coyn hyperthyroidism Gastro-intestinal disorder Father Ivan crohn's Mental Disorder Father Ivan depression - suicide Hypertension Grandmother (Maternal) Vickie Hypertension Sister Kylah Thyroid Disorder Sister Kylah violeta hypothyroidism Other (hyperlipidemia [Other]) Grandfather (Maternal) Heart Disorder Brother Ivan age 19 months - only 2 working chambers; also with esophageal problems Other (?lupus [Other]) Grandmother (Paternal) SOCIAL HISTORY: Social History Social History Tobacco Use Smoking status: Former Current packs/day: 0.00 Average packs/day: 0.5 packs/day for 11.0 years (5.5 ttl pk-yrs) Types: Cigarettes Start date: 12/2010 Quit date: 12/2021 Years since quittin.4 Smokeless tobacco: Never Tobacco comments: 02/19/2024 smokes 1 pack per day, declined pamphlet Vaping Use Vaping status: Never Used Substance Use Topics Alcohol use: No Drug use: No ALLERGIES: Allergies Amoxicillin, Cefaclor, and Cephalosporins PHYSICAL EXAMINATION: Most Recent Vital Signs: BP: 190 mmHg/89 mmHg (05/21/24 1217) Pulse: 75 (05/21/24 1217) Resp: 20 (05/21/24 1208) Temp: 36.89 C (05/21/24 1208) Temp Summary: Temp Min: 36.5 C (97.7 F) Max: 37 C (98.6 F) SpO2: 100 % (05/21/24 1039) O2 flow rate: Supplemental O2 Delivery: Room Air, None (05/21/24 1130) Vital Signs Last 24 Hours: Systolic BP: Most Recent Systolic BP Av.9 mmHg Min: 124 mmHg Max: 196 mmHg Temperature: Most Recent Temperature Av.7 C Min: 36.5 C Max: 37 C Pulse: Pulse Av.6 Min: 72 Max: 79 Respirations: Resp Av.8 Min: 18 Max: 20 SpO2: SpO2 Av % Min: 100 % Max: 100 % GENERAL: Middle aged female, laying in bed comfortably, no acute distress HEENT: Moist mucous membranes, pale but clear conjunctiva bilaterally CARDIO: RRR, no murmurs/rubs/gallops appreciated PULM: clear to auscultation in all lung snow, good airway movement, hard to assess due to body habitus ABDOMEN: soft, No tenderness, no guarding EXTREMITIES: no pedal edema NEURO: alert, oriented, answers questions appropriately LABS: Labs reviewed as indicated below: Hb 8.7 from baseline of 11.9 Troponin's: 176 Last LDL 114 Last A1C 5.9 IMPRESSION and PLAN: Principal Problem: Acute blood loss anemia Active Problems: Depression with anxiety ESRD (end stage renal disease) on dialysis ([facility]) Chest pain Bleeding hemorrhoids CAD (coronary artery disease) HFrEF (heart failure with reduced ejection fraction) ([facility]) Resolved Problems: * No resolved hospital problems. * Alexandra Arguello is a 38-year-old female with above mentioned past medical history primarily admittedhere for acute blood loss anemia 2/2 possible hemorrhoidal bleeding. Secondary symptom of chest pain is hard to characterize as patient appears extremely comfortable however rates 8 on 10 sharp, ongoing CP similar to index CP. Given her recent and significant/active coronary disease, her chest painis significant especially in the setting of elevated troponin's (The troponin's (Bessy)obtained in [facility] were flat) . EKG with no acute ST or T wave abnormality , have worsening poor R wave progression which could be suggestive of ischemia/infarction, however variable lead placement can be confo unding cesar in females The troponin's (Bessy)obtained in [facility] were flat. Suspect her chest painis likely from acute drop in hemoglobin creating demand- supply ischemia in an already injured myocardium, ESRD adds additional stress. There is evidence of myocardial injury given elevated troponin'showever would have to trend to see the if its acute coronary vs Pure- demand. Unfortunately given her hemoglobin drop & active BRPR, we would not be able to anticoagulate her with heparin even iffor ACS, as it can cause worsening of bleeding & create more demand supply mismatch. Eventuallythe target lesion needs to be addressed once her acute medical issues are resolved Evidence of Myocardial injury Pending troponin to determine if ACS Demand-supply mismatch 2/2 ABLA CAD S/p ARIEL in rPDA HFmrEF (40-45%) -Continue aspirin and Plavix daily -Agree with maintaining high intensity statin with Atorvastatin 80 mg AM -Recommend uptitrating Metoprolol to 50 mg BID given her HR has room to go up -Recommend adding Amlodipine 2.5 mg AM for additional anti-anginal effect as her BP allows -Could consider Imdur, but patient reports no improvement in CP with nitro -Trend troponin Q6H until peak -Follow up with TTE report -Will need to intervene on residual disease once all the acute medical issues are resolved -Maintain hb goal of >8 given active CAD -Consider giving Iron/venofer infusions to improve anemia I saw and evaluated the patient 05/21/24. I have reviewed the resident/fellow physician note and agree. Patient presented to the hospital with increasing shortness of breath chest discomfort and gastrointestinal bleeding. Patient has been passing bright red blood per rectum she is known to have internal hemorrhoids. Patient is also known to have atherosclerotic coronary heart disease and had percutaneous intervention on distal right coronary artery or PDA some weeks ago. Currently the patient is on dual antiplatelet therapy. Patient is also known to have [employer] of left anterior descending artery for which the patient was in the process for elective intervention as an outpatient. Patient described her chest discomfort as a sharp in the middle of the chest without any radiation which is brought about without any rhyme or reason and has been persistent for hours and hours. There is no aggravating or relieving factors. No position posture or inspiratory effort will change it. Patient cardiac enzymes were elevated to around 176 ng per L. electrocardiogram show loss of anterior precordial forces which has now extended to V4-5. Patent to this the patient is known to have chronic kidney disease and has been on hemodialysis. Patient has continued to have chest discomfort which is not relieved with nitroglycerin but relieved with narcotic analgesics. Chest discomfort which patient described his an index symptom for myocardial ischemia though atypical in the way of ongoing symptoms without any change with any activity. However the patient has [employer] of left anterior descending artery which is most likely well collateralized from the other epicardial vessels and therefore patient can have an prolonged chest discomfort secondary to myocardial ischemia but still without infarction or injury. Currently the patient has remained on dual antiplatelet therapy. Patient medical therapy need to be optimize. Will increase the dose of beta- pool as discussed above and may add calcium channel pool for better control of systolic hypertension. Patient lower GI pathology need to be addressed first as much as possible. Depending upon the patient extent of ongoing rectal bleeding the antiplatelet therapy may or may not have to be discontinuedor interrupted. Patient LAD intervention will be deferred until the patient GI pathology is taken care of. Interruption in dual antiplatelet therapy after complex [employer] intervention on left anterior descending artery can result in severe consequence. Thank you for allowing us to participate in the care of this patient [phone] documented in this encounter Procedure Notes * Gurinder Benjamin MD - 06/10/2024 3:06 AM EDTAssociated Order(s): EKG REASON FOR STUDY: post pci CONCLUSIONS: Age and gender specific ECG analysis Normal sinus rhythm Left axis deviation High QRS voltage may be normal variant or due to lve ( [place] product ) Inferior infarct , age undetermined Anterolateral infarct (cited on or before 01-Nov-2020) Abnormal ECG When compared with ECG of 09-Jun-2024 12:09, Inferior infarct is now Present ST now depressed in Inferior leads Ventricular Rate: 76 Atrial Rate: 76 NM Interval: 192 QRS Duration: 86 QT/QTc: 452/508 ms P-R-T [place]: 20 : -52 : -13 degrees * Acosta Mendes DO - 06/09/2024 12:09 PM EDTAssociated Order(s): EKG REASON FOR STUDY: chest pain CONCLUSIONS: Normal sinus rhythm Left axis deviation High QRS voltage may be normal variant or due to lve ( [place] product ) Possible Anterolateral infarct (cited on or before 01-Nov-2020) Prolonged QT interval or tu fusion, consider myocardial disease, electrolyte imbalance, or drug effects When compared with ECG of 09-Jun-2024 10:12, No significant change was found Ventricular Rate: 86 Atrial Rate: 86 NM Interval: 154 QRS Duration: 104 QT/QTc: 420/502 ms P-R-T Mineral: 38 : -35 : 18 degrees * Andrea Finney DO - 06/09/2024 9:57 AM EDT [facility] [address] [facility] [id number] CARDIAC ADMISSIONS MANAGER RN BRIEF PROCEDURE NOTE Name: Alexandra Arguello Date: 06/09/2024 Time: 9:57 AM Location: [facility] [place] of Procedure: 06/09/2024 Pre-op Diagnosis: Coronary artery disease Post-op Diagnosis: Coronary artery disease Procedure: PCI Manager School: Dr. Mcgowan Supervisor Pastry(s): Dr Finney Anesthesia: Monitored local anesthesia with sedation Additional Findings: Coronary disease - hemodynamically significant Mid LAD 100% [employer]ER with bridging collaterals. OM1 60-70% stenosis Distal RCA stent widely patent. Ostial RPDA 70% stenosis with AIDA III flow. Intervention Summary: LAD occlusion treated with 1 drug-eluting stent (2.75mm x 38mm Synergy). Proximal and mid portions of stent post-dilated with a 3.0mm and 3.25mm NC balloon. IVUS used after first post-dilation for stent optimization. Excellent angiographic result with 0% residual stenosis, AIDA 3 flow, and no evidence of dissectionor perforation. Intervention Procedure Details: A 6 azeri EBU 3.5 guide catheter was used to engage the LMCA. A samurai coronary guidewire was used to cross the lesion and advanced into the mid LAD at the [employer]SEMBLER proximal cap. A spiral turnpike microcatheter was advanced over the wire to the cap and the samurai was exchanged for a menhaden vessel pilot 200 wire. The menhaden vessel pilot 200 was advanced into the cap, forming a loop in the subintimal plane that was then able stan advanced back into the vessel lumen and into the distal LAD. The microcatheter was successfully advanced over the wire into the distal LAD. Microcatheter removed and angiogram at this point showedthe wire to be intraluminal so we proceeded with balloon dilation in the mid to distal RCA using a 2.5 mm semi-compliant balloon. Guideliner was used for extra support and advanced into the proximal LAD. A 2.75 mm x 38 mm Synergy drug-eluting stent was then deployed across the entire lesion. The stent was post dilated with a 3.0 mm non-compliant balloon. IVUS showed a well expanded and apposed except for the middle of the stent which was well apposed but under-expanded. There was no evidence ofof edge dissection on IVUS. Based on this information the underexpanded mid portion and the proximal portion was further post-dilated with a 3.25mm NC ballon. End angiographic result with approximately 20% residual stenosis in the mid-portion of the stent with AIDA 3 flow, and no evidence of dissection or perforation. Access: Right common femoral artery and Right femoral vein Hemostasis: Both femoral artery and femoral vein sheaths sutured in place to be removed later when ACT <180 Complications: none Condition of patient: Good Post Sedation Evaluation: Cardiovascular status: acceptable, BP returned to baseline, and hemodynamically stable Level of consciousness: awake and alert Airway patency: patent Distress - NAD Hydration status - well hydrated Nausea/vomiting - not present Recommendations: Dual antiplatelet therapy for at least 6 months. If symptoms persist/ do not improve can consider hemodynamic evaluation of OM1 lesion. documented in this encounter Consult Notes * Baron Prasad [facility] - 06/10/2024 9:26 AM EDTAssociated Order(s): PHARMACY CONSULT IP Patient is s/p PCI-ARIEL. She will continue prior at admission clopidogrel and aspirin therapy. I didnot see patient to review medications. * Juan Mccarty MD - 06/09/2024 4:31 PM EDT CONSULT - [place] [facility] [id number] Name: Alexandra Arguello Location: CATH/Cath Date: 06/09/2024 Time: 4:31 PM REQUESTING SERVICE: ConsultingService: Cardiology REASON FOR CONSULT: ESRD on dialysis HPI: 38 year old female with ESRD on dialysis [facility], R AVF. [facility] for elective cardiac catheterization. I reviewed admission H&P from 05/21 by Berkley Kent - had anginal sx reason for which a cath wasrecommended. I reviewed procedure note from 06/09/[address] Finney- CAD found mid LAD lesion occlusion treatedwith ARIEL, OM1 6-70% stenosis and distal RCA stent patent. Last dialysis at [facility] yesterday. Has R AVF which is used and will have fistulagram next week dt propensity for infiltration. Does 4 h and usually removes about 4-5 kg. Currently has mild chest pain which was told was expected but denies dyspnea, paroxysmal nocturnal dyspnea, orthopnea. Denies nausea,vomiting, diarrhea or abdominal pain. No fevers chills or sweats. Rest of systems negative. Prior to Admission medications Medication Sig Last Dose Discont. Varenicline Tartrate 1 MG Oral Tablet (Chantix) Take 1 tablet by mouth twice daily 06/08/2024 Acetaminophen 325 MG Oral Tablet (Tylenol) Take 3 Tablets by mouth every 6 hours as needed for Pain, Mild. Unknown amLODIPine Besylate 2.5 MG Oral Tablet (Norvasc) Take 1 Tablet by mouth in the morning. 06/08/2024 Atorvastatin Calcium 80 MG Oral Tablet (Lipitor) Take 1 Tablet by mouth every afternoon. 06/08/2024 buPROPion HCl ER (XL) 150 MG Oral Tablet Extended Release 24 Hour (Wellbutrin XL) Take 1 Tablet by mouth in the morning. 06/08/2024 Metoprolol Succinate ER 50 MG Oral Tablet Extended Release 24 Hour (toPROL XL) Take 1 Tablet by mouth in the morning and 1 Tablet before bedtime. 06/08/2024 Aspirin 81 MG Oral Tablet Chewable Take 1 Tablet by mouth in the morning. 06/08/2024 Clopidogrel Bisulfate 75 MG Oral Tablet (Plavix) Take 1 Tablet by mouth in the morning. 06/08/2024 Polyethylene Glycol 3350 17 GM Oral Packet (MiraLax) Take 1 Packet by mouth in the morning and 1 Packet before bedtime. Past Week Gabapentin 100 MG Oral Capsule (Neurontin) Take 2 Capsules by mouth in the morning and 2 Capsules before bedtime. 06/08/2024 Lidocaine 5 % External Ointment Apply topically to affected area 4 times a day as needed for Pain or Hemorrhoids. Unknown Dexcom G7 Sales Operations Specialist Device USE DAILY TO CHECK BLOOD SUGARS CONTINUOUSLY (DX CODE E11.9) 06/08/2024 hydrOXYzine HCl 25 MG Oral Tablet TAKE 1 TABLET BY MOUTH EVERY 6 HOURS NEEDED FOR ANXIETY 06/08/2024 Dexcom G7 Sensor Use to check sugars continuously. E 11.9 change every 10 days 06/08/2024 Benzonatate 100 MG Oral Capsule Take 2 Capsules by mouth 3 times a day as needed for Cough. Unknown Mirtazapine 7.5 MG Oral Tablet (Remeron) Take 1 Tablet by mouth at bedtime. Past Week Cinacalcet HCl 90 MG Oral Tablet (Sensipar) Take 1 tablet by mouth daily with dinner 06/08/2024 carBAMazepine ER 200 MG Oral Tablet Extended Release 12 Hour (Tegretol-Xr) Take 1 Tablet by mouth 2times a day in the morning and at bedtime. 06/08/2024 LORazepam 0.5 MG Oral Tablet (Ativan) TAKE 1 TABLET BY MOUTH EVERY 8 HOURS NEEDED FOR PANIC ATTACKS AND BEFORE DIALYSIS Strength: 0.5 mg 06/08/2024 Omeprazole 20 MG Oral Capsule Delayed Release (PriLOSEC) Take 1 Capsule by mouth in the morning. 1 hour before the first meal of the day. 06/08/2024 MightyMeeting In Vitro Strip (Glucose Blood) Use up to 4 times a day E11.9 06/08/2024 [email or web address] Delica Plus Bcluch54B use 1 LANCET to TEST BLOOD SUGAR four times a day. DX E11.9 06/08/2024 Compressor Nebulizer Inhale via nebulizer. Use as directed.Dx J45.901 (asthma exacerbation) Unknown MightyMeeting w/Device Kit Use up to 4 times a day E11.9 06/08/2024 Renal Vitamin 0.8 MG Oral Tablet Take 1 Tablet by mouth daily. 06/08/2024 Calcium Acetate (Phos Binder) 667 MG Oral Capsule (Phoslo) Take 3 Caps by mouth three times a day with meals. 06/08/2024 medroxyPROGESTERone Acetate 150 MG/ML Intramuscular Suspension Prefilled Syringe (Depo-Provera) INJECT 150 MG INTRAMUSCULARLY (INTO A LARGE MUSCLE) ONCE EVERY 3 MONTHS Over 30 Days Albuterol Sulfate HFA 108 (90 Base) MCG/ACT Inhalation Aerosol Solution Inhale 2 Puffs by mouth every 4 hours as needed for Wheezing. Over 30 Days Ondansetron HCl 4 MG Oral Tablet Take by mouth 1 Tablet every 6 hours as needed for Nausea. 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 PAST SURGICAL HISTORY: has a past surgical history that includes knee arthroscopy, diagnostic (10/27/2008); delivery; lasik surgery (1986); delivery only w/ (10/08/2011); ligate/cut oviduct(s) (10/10/2011); IOF CT Guided Needle Biopsy (05/18/2013); transplantation of kidn ey (02/18/2014); cystoscopy (03/17/2014); Renal biopsy, percutaneous (trocar/needle) (N/A, 11/16/2014); Renal biopsy, percutaneous (trocar/needle) (N/A, 11/23/2014); inser mari cat,w/o pump;5yr/old (11/05/2014); remov mari stephany cath w/o port (11/24/2014); av access, direct anastomosis (Right, 04/28/2015); laparoscopy; cholecystectomy (N/A, 12/18/2016); Coronary Angiography w/left heart Cath (01/26/2017); EGD, Flexible,w/Endoscopic US (06/14/2017); Colonoscopy, Diagnostic (Rectum) (10/01/2017); Intro Cath Dialysis Circuit Dx Angiography Fluoro S&I (Left, 02/25/2020); Intro Cath Dialysis Circuit W/Translum Balloon Angioplasty (Left, 02/25/2020); Intro Cath Dialysis Circuit W/Translum BalloonAngioplasty (Left, 09/29/2020); remov mari stephany cath w/o port (Left, 09/29/2020); Transcath Placment Iv Stent Central Dialysis Segment W/Imaging (Left, 09/29/2020); thrombectomy, percut, thrombolytic inject (Left, 09/29/2020); Intro Cath Dialysis Circuit W/Translum Balloon Angioplasty (Left, 11/02/2020); av access, direct anastomosis (Right, 01/03/2021); Intro Cath Dialysis Circuit W/Translum Balloon Angioplasty (Right, 06/15/2021); Intro Cath Dialysis Circuit W/Transcath Placement Iv Stent (Right, 05/22/2022); EGD, Flexible, Diagnostic (09/11/2022); Intro Cath Dialysis Circuit W/Translum Balloo n Angioplasty (Right, 04/16/2023); Colonoscopy, Diagnostic (Rectum) (03/29/2023); Intro Cath Dialysis Circuit Dx Angiography Fluoro S&I (Right, 02/06/2024); Transluminal Balloon Angioplasty Central Dialysis Segment W/Imaging (02/06/2024); and Colonoscopy, Diagnostic (Rectum) (N/A, 05/22/2024). ALLERGIES: Amoxicillin, Cefaclor, and Cephalosporins FAMILY HISTORY: family history includes ?lupus in her grandmother (paternal); Diabetes in her mother; Gastro-intestinal disorder in her father; Heart Disorder in her brother; Hypertension in her grandmother (maternal) and sister; Mental Disorder in her father; Thyroid Disorder in her mother and sister; hyperlipidemia in her grandfather (maternal). does not have a family history of renal disease. SOCIAL HISTORY: reports that she quit smoking about 2 years ago. Her smoking use included cigarettes. She started smoking about 13 years ago. She has a 5.5 pack-year smoking history. She has never used smokeless tobacco. She reports that she does not drink alcohol and does not use drugs. PHYSICAL EXAMINATION: BP: 159 mmHg/57 mmHg (06/09/24 1559) Pulse: 86 (06/09/24 1559) Resp: 16 (06/09/24 1559) Temp: 36.5 C (06/09/24 0959) Temp Summary: Temp Min: 36.2 C (97.2 F) Max: 36.5 C (97.7 F) SpO2: 98 % (06/09/24 1559) O2 flow rate: Supplemental O2 Delivery: Room Air, None (06/09/24 0959) Temperature: Most Recent Temperature Av.4 C Min: 36.22 C Max: 36.5 C I&O Brief: No intake or output data in the 24 hours ending 06/09/24 1637 Constitutional: no acute distress CV: normal rate and rhythm, no murmur, gallops or rub Chest: normal respiratory effort, lungs clear to auscultation and percussion Abdomen: normal: soft, bowel sounds normal, no masses, tenderness or organomegaly Extremities Edema: edematous arms and legs. Dialysis access right brachiocephalic arteriovenous fistula with thrill and bruit. L Antecubital fistula with thrill and bruit not used. LABS: Labs reviewed as indicated below: Lab results within last 7 days (see chart for full results) Units 06/09/24 0822 SODIUM mmol/L 138 POTASSIUM mmol/L 5.4* CHLORIDE mmol/L 92* CO2 mmol/L 32 BUN mg/dL 35* CREATININE mg/dL 4.5* Lab results within last 7 days (see chart for full results) Units 06/09/24 0822 HGB g/dL 8.7* HCT % 27.7* WBC K/uL 3.55* PLT K/uL 98* Lab results within last 7 days (see chart for full results) Units 06/09/24 0822 CALCIUM mg/dL 9.7 Phosphorus mg/dL 5.0* Albumin g/dL 3.9 IMPRESSION: ESRD on dialysis Anemia of ESRD Volume overload Renal osteodystrophy and MBD CAD s/p Cath RECOMMENDATIONS: Dialysis: Maintenance hemodialysis during admission see orders Anemia; erythropoietin with dialysis Renal diet ordered Fluid restriction < 1.2 L/day ordered Ultrafiltration 5 Kg as tolerated Resume phoslo and sensipar - ordered. Juan Mccarty MD documented in this encounter Nursing Notes * oSle Prakash RN - 06/10/2024 12:33 PM EDT Pt states that she wants to take her meds at home, agreeable to take aspirin and plavix now. Andrea Finney of Cardiology aware. Will discuss discharge instructions with pt. Approx 1400 Offered pt morning meds since ride is later than expected- pt states that she will takethem at home. * Maida Pittman LPN - 06/10/2024 11:49 AM EDT POST ASSESSMENT COMMUNICATION NOTE - HEMODIALYSIS Attention to: CRS Patient arriving via: Bed Time of Call: 11:49 AM Phone Ext.: [phone] Reason for SBAR handoff: Postdialysis treatment. Treatment: Prescribed treatment time: 4 hours Duration of Treatment (minutes): 211 minutes (06/10/241127) Dialysis Treatment Less than Prescribed: Patient wanted off treatment early d/t n/v YES, Marlen LINDSAY notified. Prescribed UF: up to 4L as tolerated. Dialysis: 3800 ml (06/10/241127) Reason prescribed UF was not achieved: n/a Blood Returned: Yes Potassium Bath: As ordered for entire treatment, 2K+ 2.5 Ca Post Dialysis Vitals: Temp: 36.8 C (98.2 F) (06/10/241127) Pulse: 78 (06/10/241127) Resp: 20 (06/10/241127) SpO2: 98 % (06/10/24747) Supplemental O2 Delivery: Room Air, None (06/10/24747) Pain Assessment Flowsheet Row Most Recent Value Pain Assessment Scale [facility] Adult Scale 0-10 Pain Score 6 (severe pain) Pre BP Sittin/82 (06/10/24 0748) Post BP Sittin/53 (06/10/241127) Medications administered, see MAR/flowsheets for further information: EPO (Erythropoietin) Access: Arteriovenous fistula, Right armneedle size 15G Function: No problems Date/time to remove pressure dressing: n/a Dialysis Tx Tolerance: Nausea/Vomiting (06/10/241127) Intervention : Fluid bolus (Fluid Bolus given 100ML) (06/10/241127) Patient educated on: N/A- chronic patient, education not required Additional patient needs/interventions during treatment: N/A No bleeding from dialysis access. * Sole Prakash, RN - 06/09/2024 3:50 PM EDT Pt's right groin venous access pulled with right sheath s/p cath- pt has no IV access. IV team unable to start site d/t b/l fistulas. Dr Mcgowan of Cardiology aware. Toby Norris of Cardiology aware of pt's bHCG of 5.7. documented in this encounter Miscellaneous Notes * Ancillary Progress Note - Augie Perdomo RN - 06/10/2024 1:16 PM EDT CARE MANAGEMENT - ADULT TRANSITION NOTE [facility] [address] Name: Alexandra Arguello Location: [facility] Date: 06/10/2024 Time: 1:16 PM Risk Stratification Risk Stratification Psycho Social / Medical Concerns Identified: None Identified (06/10/241299) Accessed Neighborly to connect patients to social care resources: No (06/10/241299) OBRA or OPTIONS needed for placement: No (06/10/241299) Readmission Risk Score: 18.6 (06/10/24 1201) AM-PAC Score With Stairs : 24 (06/09/24 1913) Caregiver Information Patient Contacts Name Relation Home Work Mobile Cony Jamison Mother [phone] Chelly Dean Grandparent [phone] Tami Hamm (SW,[facility]) Other - (no specific identity) [phone] Khadijah Mills (CANDY JAYY) Other - (no specific identity) [phone] Transition of Care Checklist Transition of Care Checklist (aka Readmission Risk Score) Discharge Disposition: Home (06/10/241299) Home or Home w/Home Health: High (18-33%) (06/10/241299) Narrative: Care Management screen not indicated at this time. Care Management will continue to follow should discharge needs arise Anticipated Transportation at Discharge: Family Patient/Family Expectations: Return home Transition Planning Transition Planning Transition Plan/Considerations: No needs identified - Return home (06/10/241299) [facility] Quality Rating provided to patient: No (06/10/241299) Repisodic Choice provided to patient: No (06/10/241299) Insurance Considerations: N/A (06/10/241299) Referral to Community Agency : N/A (06/10/241299) Post-Acute Care needs identified and Referrals Completed: N/A (06/10/24 1300) Additional Considerations: Care Management will continue to monitor and assist with discharge planning needs * Hospital Course - Toby Norris CRNP - 06/09/2024 10:02 AM EDT {Hospital Course documentation can easily be pulled into the Discharge Summary by documenting here and using the smartlink in the Discharge Summary template:[id number]} * Ancillary Progress Note - Radha Slaughter RCIS - 06/09/2024 9:39 AM EDT [facility] [address] Ancillary Progress Note Patient Name: Alexandra Arguello Date: 06/09/2024 Patient will be escorted to CRS-Cardiac Recovery Suite. We performed a Stent procedure on this patient. We placed 1 stents in the LAD.. The right femoral artery and right femoral vein was used for access with a 5 and 6 Samoan sheaths. The sheath will be pulled later due to anticoagulation. There isno hematoma and no ooze from the cath site noted. CHG Tegaderm dressing applied to site Distal pulses were palpated and instructions to patient were given. There were no complications during the case. Please see the MAR for the medications that were given. See Cath Procedure Log for patient vitals during the case. * Communication - Andrea Finney DO - 06/09/2024 8:05 AM EDT INFORMED CONSENT FOR CARDIAC CATH AND INTERVENTIONAL PROCEDURES: Dr. Mcgowan discussed with patient the alternatives to cardiac cath including medical therapy and if appropriate exercise testing. Dr. Mcgowan discussed the risks of cath including 10/999 , [place], CVA and 2/100 risk of allergic reaction, bleeding, infection, arrhythmia requiring shock, damage to artery requiring surgery or amputation, radiation skin cifuentes. Dr. Mcgowan discussed technique of catheterization. The patient indicated understanding and a preference for proceeding with catheterization considering these factors. Dr. Mcgowan discussed with the patient coronary intervention and alternatives i ncluding bypass surgery and medical therapy. Dr. Mcgowan discussed the risks of intervention including 5-10% risk of [place], 5% risk of bleeding possibly requiring transfusion, 1% risk of , 1% risk ofemergency CABG, and 20- 30% risk of restenosis, and the chance that even a successful procedure will not relieve symptoms if they are not due to cardiac ischemia. The patient would like to have ad hoc intervention done at the time of the catheterization if it seems appropriate. Dr. Mcgowan explained to patient that given the complexity of her disease that she is at higher risk for complications than the above stated percentages. She verbalized understanding and still wishes to proceed with planned procedure. documented in this encounter Plan of Treatment Upcoming Encounters Date Type Department Care Team (Latest Contact Info) Description 06/16/2024 1:17 PM EDT Hospital Encounter OR C, OPERATING ROOM [facility] [address] [place] [address] Balbir Santiago MD [address] [place] [address] 06/16/2024 1:17 PM EDT - 06/16/2024 3:14 PM EDT Surgery OR [facility] OPERATING ROOM [facility] [address] [facility] [place] [address] Balbir Santiago MD [address] [place] [address] AV FISTULOGRAM STENT & PERIPHERAL ANGIOPLASTY 07/07/2024 12:30 PM EST Office Visit Orthopaedics [facility] [address] [place] [address] Ary Rowe MD [address] [place] [address] 09/01/2024 1:40 PM EST Office Visit [facility] [place] [address] [place] [phone] Adolph Aldridge MD [address] [place] [address] 10/19/2024 10:00 AM EST Office Visit Cardiology, [facility] [address] [facility] [place] [address] Andra Ross, DO [address] [place] [address] 04/01/2025 2:40 PM EDT Telemedicine Neurology [address] [place] [address] Eros Marks, DO [address] [place] [address] Scheduled Orders Name Type Priority Associated Diagnoses Orde r Schedule HCG QUALITATIVE, URINE Lab STAT Perform Now for 1 Occurrences starting 06/09/2024 until 06/09/2024 EKG EKG Routine SOB (shortness of breath) One Time for 1 Occurrences starting 06/09/2024 until 06/09/2024 CARDIAC REHAB W/ECG MONITORING Procedures Routine 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 (HCC) S/P primary angioplasty with coronary stent Ordered: 06/09/2024 Scheduled Procedures Name Priority Associated Diagnoses Date/Ti me AV FISTULOGRAM STENT & PERIPHERAL ANGIOPLASTY ESRD (end stage renal disease) on dialysis (HCC) 06/16/2024 1:17 PM EDT COLONOSCOPY FLEXIBLE PROXIMAL DIAGNOSTIC Recall Iron deficiency anemia, unspecified iron deficiency anemia type Rectal bleeding Scheduled Referrals Name Type Priority Associated Diagnoses Orde r Schedule CARDIAC REHAB REFERRAL OP Referral Within 10 days (routine) 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 (HCC) S/P primary angioplasty with coronary stent Ordered: 06/09/2024 Health Maintenance Due Date Last Done Comments [...] this encounter Medical Devices Implanted Type Area Oil Heater Installer Device Identifier Shelf Expiration Date Model / Serial / Lot Stent Protege Gps [id number] - [id number] Implanted:Qty : 1 on 09/29/2020 by Carmelo Ramos MD at [place] [facility] Left: Chest [employer] : VASCULAR [id number] 09/20/2022 [id number] / / [id number] Stent Viab [id number] - [id number] Implanted:Qty : 1 on 04/16/2023 by Carmelo Ramos MD at [place] [facility] Right: Subclavian [employer] [id number] 01/26/2026 [id number] / [id number] / [id number] Stent Synergy Xd Mr [id number] - [id number] Implanted:Qty : 1 on 06/09/2024 by Diamond Mcgowan MD at CARDIAC LABS [facility] [email or web address] [id number] 01/21/2026 [id number] / / [id number] documented as of this encounter Procedures Procedure Name Priority Date/Time Associated Diagnosis Comments HEPATITIS B DNA ADD ON Routine 06/10/2024 8:05 AM EDT HEPATITIS B SURFACE ANTIGEN WITH REFLEX TO PCR Routine 06/10/2024 8:05 AM EDT HEPATITIS C RNA ADD ON Routine 06/10/2024 8:05 AM EDT HEPATITIS B SURFACE ANTIBODY Routine 06/10/2024 8:05 AM EDT HEPATITIS C ANTIBODY SCREEN WITH PROGRESSION TO HEPATITIS C RNA QUANTITATIVE Routine 06/10/2024 8:05 AM EDT HEPATITIS C ANTIBODY Routine 06/10/2024 8:05 AM EDT HEPATITIS B CORE ANTIBODY IGM Routine 06/10/2024 8:05 AM EDT HEPATITIS B CORE ANTIBODIES IGG AND IGM Routine 06/10/2024 8:05 AM EDT HEPATITIS B SURFACE ANTIGEN Routine 06/10/2024 8:05 AM EDT EXTRA PINK TOP Routine 06/10/2024 6:22 AM EDT EXTRA TUBES Routine 06/10/2024 6:22 AM EDT RENAL FUNCTION PANEL STAT 06/10/2024 6:22 AM EDT LIPID PANEL WITHOUT DIRECT LDL Routine 06/10/2024 3:27 AM EDT HEMOGLOBIN A1C Routine 06/10/2024 3:26 AM EDT HC ECG TRACING ONLY Routine 06/10/2024 3 :06 AM EDT Status post cardiac catheterization ACT, POINT OF CARE JES 06/09/2024 1: 39 PM EDT HC ECG TRACING ONLY STAT 06/09/2024 1 2:09 PM EDT Chest pain ACT, POINT OF CARE JES 06/09/2024 9: 43 AM EDT ACT, POINT OF CARE JES 06/09/2024 9: 09 AM EDT BETA-HCG, QUANTITATIVE STAT 06/09/2024 8:22 AM EDT RENAL FUNCTION PANEL STAT 06/09/2024 8:22 AM EDT CBC STAT 06/09/2024 8:22 AM EDT ACT, POINT OF CARE JES 06/09/2024 8: 21 AM EDT documented in this encounter Results * HEPATITIS C RNA ADD ON (06/10/2024 8:05 AM EDT) Blood Venous blood specimen / Unknown Venipuncture / Unknown 06/10/2024 8:05 AM EDT 06/10/2024 8:32 AM EDT Marlen LINDSAY LAB BLOOD ORDERABL ES LABORATORY [facility] [address] [place] [address] * HEPATITIS C ANTIBODY (06/10/2024 8:05 AM EDT) Hepatitis C Antibody Negative Negative 06/10/2024 1:08 PM EDT LABORATORY [facility] Comment:Further HCV quantita tive testing not performed per protocol. Blood Venous blood specimen / Unknown Venipuncture / Unknown 06/10/2024 8:05 AM EDT 06/10/2024 8:36 AM EDT Marlen LINDSAY LAB BLOOD ORDERABL ES Performing Organization Address City/[facility]/ZIP Co de Phone Number LABORATORY [facility] [address] [place] [address] * HEPATITIS B DNA ADD ON (06/10/2024 8:05 AM EDT) Blood Venous blood specimen / Unknown Venipuncture / Unknown 06/10/2024 8:05 AM EDT 06/10/2024 8:31 AM EDT Marlen LINDSAY LAB BLOOD ORDERABL ES Performing Organization Address [facility] Co de Phone Number LABORATORY [facility] [address] [place] [address] * HEPATITIS B SURFACE ANTIGEN (06/10/2024 8:05 AM EDT) Hepatitis B Surface Antigen Negative Negative 06/10/2024 1:08 PM EDT LABORATORY [facility] Blood Venous blood specimen / Unknown Venipuncture / Unknown 06/10/2024 8:05 AM EDT 06/10/2024 8:36 AM EDT Marlen LINDSAY LAB BLOOD ORDERABL ES Performing Organization Address City/[facility] Co de Phone Number LABORATORY [facility] [address] [place] [address] * HEPATITIS B CORE ANTIBODIES IGG AND IGM (06/10/2024 8:05 AM EDT) Hepatitis B Core Antibodies IgG and IgM Negative Negative 06/10/2024 1:08 PM EDT LABORATORY [facility] Blood Venous blood specimen / Unknown Venipuncture / Unknown 06/10/2024 8:05 AM EDT 06/10/2024 8:36 AM EDT Marlen LINDSAY LAB BLOOD ORDERABL ES Performing Organization Address [facility] Co de Phone Number LABORATORY [facility] [address] [place] [address] * HEPATITIS B CORE ANTIBODY IGM (06/10/2024 8:05 AM EDT) Pathologist [facility] Hepatitis B Core Antibody IgM Negative Negative 06/10/2024 1:08 PM EDT LABORATORY [facility] Blood Venous blood specimen / Unknown Venipuncture / Unknown 06/10/2024 8:05 AM EDT 06/10/2024 8:36 AM EDT Marlen LINDSAY LAB BLOOD ORDERABL ES Performing Organization Address [facility] de Phone Number LABORATORY [facility] [address] [place] [address] * HEPATITIS B SURFACE ANTIBODY (06/10/2024 8:05 AM EDT) Pathologist [facility] Hepatitis B Surface Antibody, Quantitative 11.9 mIU/mL 06/10/2024 1:19 PM EDT LABORATORY [facility] Comment:Changed result: Prev iously reported as 10.1 mIU/mL on 06/10/2024 at 1308 EDT. Hepatitis B Surface Antibody, Qualitative Positive 06/10/2024 1:19 PM EDT LABORATORY [facility] Hepatitis B Surface Antibody, Interpretation Immune to Hepatitis B Virus 06/10/2024 1:19 PM EDT LABORATORY [facility] Comment: POSITIVE: >=11.5 mIU/mL INDETERMINATE: 8.5-<11.5 mIU/mL NEGATIVE: <8.5 mIU/mL Blood Venous blood specimen / Unknown Venipuncture / Unknown 06/10/2024 8:05 AM EDT 06/10/2024 8:36 AM EDT Marlen LINDSAY LAB BLOOD ORDERABL ES Performing Organization Address [facility] Co de Phone Number LABORATORY [facility] [address] [place] [address] * EXTRA PINK TOP (06/10/2024 6:22 AM EDT) Blood Venous blood specimen / Unknown 06/10/2024 6:22 AM EDT 06/10/2024 8:39 AM EDT Diamond Mcgowan MD LAB BLOOD ORDERABLES Performing Organization Address [facility] Co de Phone Number LABORATORY [facility] [address] [place] [address] * (ABNORMAL) RENAL FUNCTION PANEL (06/10/2024 6:22 AM EDT) BUN 52(H) 6 - 20 mg/dL 06/10/2024 9:14 AM EDT LAB[facility]ATORY [facility] CREATININE 5.8(H) 0.5 - 1.0 mg/dL 06/10/2024 9:14 AM EDT [facility] EGFR 9(L) >=60 mL/min 06/10/2024 9:14 AM EDT [facility] Comment:eGFR is calculated b ased on the CKD-EPI 2020 equation. SODIUM 134(L) 135 - 146 mmol/L 06/10/2024 9:14 AM EDT [facility] POTASSIUM 6.6(HH) 3.5 - 5.1 mmol/L 06/10/2024 9:14 AM EDT [facility] CHLORIDE 90(L) 98 - 107 mmol/L 06/10/2024 9:14 AM EDT [facility] CO2 29 22 - 32 mmol/L 06/10/2024 9:14 AM EDT [facility] ANION GAP 15 7 - 15 mmol/L 06/10/2024 9:14 AM EDT [facility] GLUCOSE 116 70 - 120 mg/dL 06/10/2024 9:14 AM EDT [facility] CALCIUM 8.3(L) 8.4 - 10.2 mg/dL 06/10/2024 9:14 AM EDT [facility] Albumin 3.7(L) 3.8 - 5.0 g/dL 06/10/2024 9:14 AM EDT [facility] Phosphorus 6.2(H) 2.5 - 4.8 mg/dL 06/10/2024 9:14 AM EDT LABOR[facility]ORY [facility] Blood Venous blood specimen / Unknown 06/10/2024 6:22 AM EDT 06/10/2024 8:36 AM EDT Juan Mccarty MD LAB BLOOD ORDERABLES LABORAT[facility] [address] [place], [place] [id number] * (ABNORMAL) LIPID PANEL WITHOUT DIRECT LDL (06/10/2024 3:27 AM EDT) Triglycerides 78 <=174 mg/dL 06/10/2024 4:02 AM EDT LABORATORY [facility] Comment: Triglyceride Reference Ranges (mg/dL): <150 Acceptable 150-174 Borderline high 175-499 High >=500 Very high Cholesterol 134 <200 mg/dL 06/10/2024 4:02 AM EDT LABORATORY [facility] Comment: Total Cholesterol Reference Ranges (mg/dL): <200 Desirable 200-239 Borderline high >=240 High HDL Cholesterol 47(L) >49 mg/dL 4:02 AM EDT LABORATORY [facility] Comment: HDL Cholesterol Reference Ranges (mg/dL): >=60 High (Desirable) <50 Low (Undesirable) For Females <40 Low (Undesirable) For Males Non-HDL Cholesterol 87 <=159 mg/dL 06/10/2024 4:02 AM EDT LABORATORY [facility] Comment: Non-HDL Cholesterol Reference Range (mg/dL): <100 Target level for high risk ASCVD patient <130 Optimal for general population 130-159 Near optimal for general population 160-189 Borderline High 190-219 High >=220 Very High LDL Cholesterol 71 <=129 mg/dL 06/10/2024 4:02 AM EDT LABORATORY [facility] Comment: LDL Cholesterol Reference Ranges (mg/dL): <70 Target level for high risk ASCVD patient <100 Optimal for general population 100-129 Near optimal for general population 130-159 Borderline high 160-189 High >=190 Very high Blood Venous blood specimen / Unknown Venipuncture / Unknown 06/10/2024 3:27 AM EDT 06/10/2024 3:31 AM EDT Toby Celayadonnie LINDSAY LAB BLOOD OR DERABLES Performing Organization Address [facility] de Phone Number LABORATORY [facility] [address] [place] [address] * HEMOGLOBIN A1C (06/10/2024 3:26 AM EDT) Hemoglobin A1C 5.1 4.0 - 5.6 % 06/10/2024 6:38 AM EDT LABORATORY [facility] Comment:The use of HbA1c to monitor glycemic status is based on normal hemoglobin and HbA composition. This test should not be used in patients with abnormal hemoglobin that affects the half life of the red blood cell or the in vivo glycation rates. Estimated Average Glucose 100 <126 mg/dL 06/10/2024 6:38 AM EDT LABORATORY [facility] Blood Venous blood specimen / Unknown Venipuncture / Unknown 06/10/2024 3:26 AM EDT 06/10/2024 3:32 AM EDT Toby Garcia Myrna LINDSAY LAB BLOOD OR DERABLES Performing Organization Address [facility] Phone Number LABORATORY [address] [address] * EKG (06/10/2024 3:06 AM EDT) 06/10/2024 3:06 AM EDT Narrative Procedure Note Gurinder Benjamin MD - 06/10/2024 3:06 AM EDT REASON FOR STUDY: post pci CONCLUSIONS: Age and gender specific ECG analysis Normal sinus rhythm Left axis deviation High QRS voltage may be normal variant or due to lve ( [place] product ) Inferior infarct , age undetermined Anterolateral infarct (cited on or before 01-Nov-2020) Abnormal ECG When compared with ECG of 09-Jun-2024 12:09, Inferior infarct is now Present ST now depressed in Inferior leads Ventricular Rate: 76 Atrial Rate: 76 NM Interval: 192 QRS Duration: 86 QT/QTc: 452/508 ms P-R-T [place]: 20 : -52 : -13 degrees Andrea Finney DO EKG Performing Organization Address [facility] Co de Phone Number [employer] CARDIOLOGY * ACT, POINT OF CARE (06/09/2024 1:39 PM EDT) ACT 159 50 - 1,000 secs 06/09/2024 2:06 PM EDT [facility] [employer] Blood 06/09/2024 1:39 PM EDT 06/09/2024 2:06 PM EDT Narrative [facility] [employer] [facility] - 06/09/2024 2:06 PM EDT NORMAL (NON-HEPARINIZED) 74-137 SECONDS HEPARINIZED 200+ SECONDS CRITICAL GREATER THAN 1000 SECONDS Diamond Mcgowan MD LAB POINT OF CARE TE ST DOCKED DEVICE UNSOLICITED RESULTS Performing Organization Address [facility] Phone Number [facility] [address] [place] [address] * EKG (06/09/2024 12:09 PM EDT) 06/09/2024 12:0 9 PM EDT Narrative Procedure Note Acosta Mendes DO - 06/09/2024 12:09 PM EDT REASON FOR STUDY: chest pain CONCLUSIONS: Normal sinus rhythm Left axis deviation High QRS voltage may be normal variant or due to lve ( [place] product ) Possible Anterolateral infarct (cited on or before 01-Nov-2020) Prolonged QT interval or tu fusion, consider myocardial disease,electrolyte imbalance, or drug effects When compared with ECG of 09-Jun-2024 10:12, No significant change was found Ventricular Rate: 86 Atrial Rate: 86 NM Interval: 154 QRS Duration: 104 QT/QTc: 420/502 ms P-R-T [place]: 38 : -35 : 18 degrees Toby LINDSAY EKG Performing Organization Address [facility] Co de Phone Number [employer] CARDIOLOGY * ACT, POINT OF CARE (06/09/2024 9:43 AM EDT) [facility] ACT 293 50 - 1,000 secs 06/09/2024 10:56 AM EDT [employer] Blood 06/09/2024 9:43 AM EDT 06/09/2024 10:56 AM EDT [facility] [employer] [facility] - 06/09/2024 10:56 AM EDT NORMAL (NON-HEPARINIZED) 74-137 SECONDS HEPARINIZED 200+ SECONDS CRITICAL GREATER THAN 1000 SECONDS Diamond Mcgowan MD LAB POINT OF CARE TE ST DOCKED DEVICE UNSOLICITED RESULTS [address] [address] * ACT, POINT OF CARE (06/09/2024 9:09 AM EDT) [facility] ACT 287 50 - 1,000 secs 06/09/2024 9:13 AM EDT [facility] Blood 06/09/2024 9:09 AM EDT 06/09/2024 9:13 AM EDT [facility] [employer] [facility] - 06/09/2024 9:13 AM EDT NORMAL (NON-HEPARINIZED) 74-137 SECONDS HEPARINIZED 200+ SECONDS CRITICAL GREATER THAN 1000 SECONDS Diamond Mcgowan MD LAB POINT OF CARE TE ST DOCKED DEVICE UNSOLICITED RESULTS [address] [address] * (ABNORMAL) BETA-HCG, QUANTITATIVE (06/09/2024 8:22 AM EDT) [facility] Beta-HCG, Quantitative 5.7(H) <=1.0 mIU/mL 06/09/2024 10:59 AM EDT [facility] [place] Venous blood specimen / Unknown Venipuncture / Unknown 06/09/2024 8:22 AM EDT 06/09/2024 8:28 AM EDT Narrative [facility] - 06/09/2024 10:59 AM EDT hCG can serve as a screening assay for . However, early may not give a positive hCG test result. In addition, some non- women may have a hCG result slightly higher than the reference limit. Careful interpretation of the hCG with clinical history is required to determine whether the patient may be . Diamond Mcgowan MD LAB BLOOD ORDERABLES [facility] [address] [place] [address] * (ABNORMAL) RENAL FUNCTION PANEL (06/09/2024 8:22 AM EDT) BUN 35(H) 6 - 20 mg/dL 06/09/2024 9:18 AM EDT [facility] CREATININE 4.5(H) 0.5 - 1.0 mg/dL 06/09/2024 9:18 AM EDT [facility] EGFR 12(L) >=60 mL/min 06/09/2024 9:18 AM EDT [facility] Comment:eGFR is calculated b ased on the CKD-EPI 2020 equation. SODIUM 138 135 - 146 mmol/L 06/09/2024 9:18 AM EDT LAB[facility] POTASSIUM 5.4(H) 3.5 - 5.1 mmol/L 06/09/2024 9:18 AM EDT [facility] CHLORIDE 92(L) 98 - 107 mmol/L 06/09/2024 9:18 AM EDT [facility] CO2 32 22 - 32 mmol/L 06/09/2024 9:18 AM EDT [facility] ANION GAP 14 7 - 15 mmol/L 06/09/2024 9:18 AM EDT [facility] GLUCOSE 134(H) 70 - 120 mg/dL 06/09/2024 9:18 AM EDT [facility] CALCIUM 9.7 8.4 - 10.2 mg/dL 06/09/2024 9:18 AM EDT LAB[facility] Albumin 3.9 3.8 - 5.0 g/dL 06/09/2024 9:18 AM EDT LAB[facility] Phosphorus 5.0(H) 2.5 - 4.8 mg/dL 06/09/2024 9:18 AM EDT [facility] Blood Venous blood specimen / Unknown Venipuncture / Unknown 06/09/2024 8:22 AM EDT 06/09/2024 8:28 AM EDT Berkley Kent PA-C LAB BLOOD ORDERABL ES LABORATORY [facility] [address] [place] [address] * (ABNORMAL) CBC (06/09/2024 8:22 AM EDT) WBC 3.55(L) 4.00 - 10.80 K/uL 06/09/2024 9:31 AM EDT [facility] RBC 2.48 3.85 - 5.15 M/uL 06/09/2024 9:31 AM EDT [facility] HGB 8.7(L) 12.0 - 15.3 g/dL 06/09/2024 9:31 AM EDT [facility] HCT 27.7(L) 36.0 - 45.2 % 06/09/2024 9:31 AM EDT LAB[facility] MCV 111.7 81.5 - 97.5 fL 06/09/2024 9:31 AM EDT [facility] MCH 35.1 27.0 - 34.0 pg 06/09/2024 9:31 AM EDT [facility] MCHC 31.4 32.0 - 36.0 g/dL 06/09/2024 9:31 AM EDT LAB[facility] RDW 20.0 11.5 - 15.5 % 06/09/2024 9:31 AM EDT LAB[facility] PLT 98(L) 140 - 400 K/uL 06/09/2024 9:31 AM EDT LAB[facility] MPV 9.9 6.6 - 11.1 fL 06/09/2024 9:31 AM EDT LAB[facility]ATORY [facility] nRBCs 0 <=0 /100 WBCs 06/09/2024 9:31 AM EDT LAB[facility] Blood Venous blood specimen / Unknown Venipuncture / Unknown 06/09/2024 8:22 AM EDT 06/09/2024 8:28 AM EDT Berkley Kent PA-C LAB BLOOD ORDERABL ES LAB[facility]ATORY [facility] [address] [place] [address] * ACT, POINT OF CARE (06/09/2024 8:21 AM EDT) ACT 122 50 - 1,000 secs 06/09/2024 8:50 AM EDT [facility] Blood 06/09/2024 8:21 AM EDT 06/09/2024 8:50 AM EDT Narrative [facility] [employer] [facility] - 06/09/2024 8:50 AM EDT NORMAL (NON-HEPARINIZED) 74-137 SECONDS HEPARINIZED 200+ SECONDS CRITICAL GREATER THAN 1000 SECONDS Diamond Mcgowan MD LAB POINT OF CARE TE ST DOCKED DEVICE UNSOLICITED RESULTS Performing Organization Address City/[facility]/ZIP Co de Phone Number [facility] [address] [place] [address] documented in this encounter Visit Diagnoses Diagnosis 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 ([facility])- Primary SOB (shortness of breath) Shortness of breath S/P primary angioplasty with coronary stent Postsurgical percutaneous transluminal coronary angioplasty status Status post cardiac catheterization Other postprocedural status Chest pain Chest pain, unspecified Coronary artery disease involving flandreau coronary artery S/P primary angioplasty with coronary stent Postsurgical percutaneous transluminal coronary angioplasty status Chronic total occlusion of coronary artery Coronary atherosclerosis of unspecified type of vessel, flandreau or graft Type 2 diabetes mellitus with hemoglobin A1c goal of less than 7.0% ([facility]) ESRD (end stage renal disease) on dialysis ([facility]) End stage renal disease HFrEF (heart failure with reduced ejection fraction) ([facility]) ESRD (end stage renal disease) on dialysis ([facility])- Primary End stage renal disease ESRD (end stage renal disease) on dialysis ([facility]) End stage renal disease documented in this encounter Administered Medications Inactive Administered Medications - up to 3 most recent administrations Medication Order MAR Action Action Date Dose Rate Site aspirin chew tab 81 mg 81 mg, Oral, ONCE, On Sat06/09/24 at 0715, For 1 dose, Pre-Op Given 06/09/2024 7:43 AM EDT 81 mg aspirin chew tab 81 mg 81 mg, Oral, Daily(AM), First dose on Sat06/10/24 at 0900, Until Discontinued, Post-op Given 06/10/2024 12:26 PM EDT 81 mg atorvaSTATin (Lipitor) tab 80 mg 80 mg, Oral, ONCE, On Sat06/09/24 at 0715, For 1 dose, Pre-Op Given 06/09/2024 7:43 AM EDT 80 mg calcium acetate (Phos Binder) (Phoslo) cap/tab 667 mg 667 mg, Oral, WITH MEALS, First dose on Sat06/09/24 at 1715, Until Discontinued Given 06/09/2024 7:24 PM EDT 667 mg carBAMazepine ER (Carbatrol) cap 200 mg 200 mg, Oral, Q12H, First dose on Sat06/09/24 at 2100, Until Discontinued Given 06/09/2024 9:12 PM EDT 200 mg cinacalcet (Sensipar) tab 90 mg 90 mg, Oral, [id number], First dose on Sat06/09/24 at 1715, Until Discontinued Given 06/09/2024 7:24 PM EDT 90 mg clopidogrel (pLAVix) tab 300 mg 300 mg, Oral, ONCE, On Sat06/09/24 at 0830, For 1 dose Given 06/09/2024 7:51 AM EDT 300 mg clopidogrel (pLAVix) tab 75 mg 75 mg, Oral, Daily(AM), First dose on Sat06/10/24 at 0900, Until Discontinued Given 06/10/2024 12:26 PM EDT 75 mg epoetin shandra-epbx ESRD (Retacrit) 30673 UNIT/ML inj 10,000 Units 10,000 Units, IV Push, ON DIALYSIS, Starting on Sat06/10/24 at 0000, Until Sat06/10/24 at 1916, For 1 dose, call center director for dialysis, to be given ONLY on dialysis fentaNYL (PF) inj 50 mcg 50 mcg, IV Push, PRN Pain, Severe, Starting on Sat06/09/24 at 0825, Until Sat06/09/24 at 1024, For 2 hours, To be administered in Cardiac Air Value Tester intra-procedure only When given IV Push its recommended that the dose be given over 3 to 5 minutes., Intra-Op Given 06/09/2024 8:59 AM EDT 50 mcg Given 06/09/2024 8:20 AM EDT 50 mcg hEParin 1000 UNIT/ML inj (dialysis orders only) Intravenous, ON DIALYSIS, Starting on Sat06/09/24 at 1630, Until Sat06/10/24 at 1916, For 7 days, Bolus: To be given ONLY on dialysis only. Enter Date of Dialysis Rx:: 2000 IU Given 06/10/2024 10:25 AM EDT 2,000 Units hEParin 1000 UNIT/ML inj (dialysis orders only) Intravenous, ONCE, On Sat06/10/24 at 0000, For 1 dose, Maintenance: 2000 Units IV bolus Drip: 1000 Units/ Hr. STOP heparin last hour of dialysis Stop 1 hour before dialysis end in AVF/AVG. Continue through dialysis in CVC. The total delivered dose is approximately 2,500 to 5,000 units, based on weight and treatment duration assumptions. Given 06/10/2024 10:24 AM EDT 3,000 U nits hEParin inj 8,000 Units 8,000 Units, IV Push, PRN Other, Anticoagulation not at goal, Starting on Sat06/09/24 at 0826, Until Sat06/09/24 at 1025, For 2 hours, To be administered in Cardiac Air Value Tester intra-procedure., Intra-Op Given 06/09/2024 9:15 AM EDT 2,000 Units Given 06/09/2024 8:40 AM EDT 10,000 Units hydrOXYzine HCl tab 25 mg 25 mg, Oral, ONCE PRN Anxiety, Starting on Sat06/10/24 at 0000, Until Sat06/10/24 at 0656, For 1 dose Given 06/10/2024 6:56 AM EDT 25 mg Iopamidol (Isovue 370) inj 150 mL 150 mL, Intracoronary, ONCE, On Sat06/09/24 at 1015, For 1 dose, Intra-Op Given 06/09/2024 9:39 AM EDT 150 mL LORAzepam (Ativan) tab 0.5 mg 0.5 mg, Oral, ONCE PRN Anxiety, Starting on Sat06/10/24 at 0000, Until Sat06/10/24 at 0656, For 1 dose Given 06/10/2024 6:56 AM EDT 0.5 mg metoprolol succinate XL (toPROL XL) tab 50 mg 50 mg, Oral, BID (.AM/PM), First dose on Sat06/09/24 at 2100, Until Discontinued, Hold for HR less than 60 or SBP below 100 and notify service if dose is held This med should NOT be Crushed or Chewed. Given 06/09/2024 9:11 PM EDT 50 mg midazolam (Versed) 2 MG/2ML inj 1 mg 1 mg, IV Push, PRN Anxiety, Starting on Sat06/09/24 at 0825, Until Sat06/09/24 at 1024, For 2 hours, To be administered in Cardiac Air Value Tester intra-procedure only, Intra-Op Given 06/09/2024 8:59 AM EDT 1 mg Given 06/09/2024 8:20 AM EDT 1 mg Mirtazapine (Remeron) tab 7.5 mg 7.5 mg, Oral, HS, First dose on Sat06/09/24 at 2200, Until Discontinued Given 06/09/2024 9:12 PM EDT 7.5 mg ondansetron (Zofran) tab 4 mg 4 mg, Oral, Q8H, First dose on Sat06/09/24 at 1200, Until Discontinued Given 06/09/2024 9:11 PM EDT 4 mg Given 06/09/2024 12:07 PM EDT 4 mg oxyCODONE (Oxy IR) tab 5 mg 5 mg, Oral, Q4H PRN Pain, Severe, Starting on Sat06/09/24 at 1043, Until Sat06/10/24 at 1916 Given 06/10/2024 3:42 AM EDT 5 mg Given 06/09/2024 7:13 PM EDT 5 mg Given 06/09/2024 10:51 AM EDT 5 mg oxyCODONE (Oxy IR) tab 5 mg 5 mg, Oral, ONCE, On Sat06/09/24 at 1300, For 1 dose Given 06/09/2024 12:29 PM EDT 5 mg documented in this encounter Active and Recently Administered Medications Times are shown in EDT. Scheduled Medication Order 06/08/2024 06/09/2024 06/10/2024 Acetaminophen (Tylenol) tab 650 mg 650 mg, Oral, ONCE, On Sat06/09/24 at 1215, For 1 dose, Maximum of 4 grams (4000 mg) per day. 1215 (Not Given - Provider: Sole Prakash RN - Reason: Refused-Notify Provider - Comment: Toby Norris of Cardiology aware) amLODIPine (Norvasc) tab 2.5 mg 2.5 mg, Oral, Daily(AM), First dose on Sat06/10/24 at 0900, Until Discontinued 899 (Due) aspirin chew tab 81 mg (COMPLETED) 81 mg, Oral, ONCE, On Sat06/09/24 at 0715, For 1 dose, Pre-Op 0743 (Given - Provider: Sole Prakash RN) aspirin chew tab 81 mg 81 mg, Oral, Daily(AM), First dose on Sat06/10/24 at 0900, Until Discontinued, Post-op 1226 (Given - Provid er: Sole Prakash RN) atorvaSTATin (Lipitor) tab 80 mg (COMPLETED) 80 mg, Oral, ONCE, On Sat06/09/24 at 0715, For 1 dose, Pre-Op 0743 (Given - Provider: Sole Prakash RN) buPROPion (Wellbutrin) tab 150 mg 150 mg, Oral, Daily(AM), First dose on Sat06/10/24 at 0900, Until Discontinued, [Therapeutic Interchange from Wellbutrin XL] 899 (Due) calcium acetate (Phos Binder) (Phoslo) cap/tab 667 mg 667 mg, Oral, WITH MEALS, First dose on Sat06/09/24 at 1715, Until Discontinued 1923 (Given - Provider: Shirin Garcia RN) 0800 (OR/Procedure - Provider: Sole Prakash RN - Comment: Dialysis)1200 (Due) carBAMazepine ER (Carbatrol) cap 200 mg 200 mg, Oral, Q12H, First dose on Sat06/09/24 at 2100, Until Discontinued 2111 (Given - Provider: Shirin Garcia RN) 0900 (Due) cinacalcet (Sensipar) tab 90 mg 90 mg, Oral, [id number], First dose on Sat06/09/24 at 1715, Until Discontinued 1923 (Given - Provider: Shirin Garcia, ROSEY) clopidogrel (pLAVix) tab 300 mg (COMPLETED) 300 mg, Oral, ONCE, On Sat06/09/24 at 0830, For 1 dose 0751 (Given - Provider: Sole Prakash RN) clopidogrel (pLAVix) tab 75 mg 75 mg, Oral, Daily(AM), First dose on Sat06/10/24 at 0900, Until Discontinued 1226 (Given - Provid er: Sole Prakash RN) epoetin shandra-epbx ESRD (Retacrit) 54855 UNIT/ML inj 10,000 Units 10,000 Units, IV Push, ON DIALYSIS, Starting on Sat06/10/24 at 0000, Until Sat06/10/24 at 1916, For 1 dose, call center director for dialysis, to be given ONLY on dialysis hEParin 1000 UNIT/ML inj (dialysis orders only) Intravenous, ON DIALYSIS, Starting on Sat06/09/24 at 1630, Until Sat06/10/24 at 1916, For 7 days, Bolus: To be given ONLY on dialysis only. Enter Date of Dialysis Rx:: 1999 IU 1025 (Given - Provid er: Maida Pittman LPN) hEParin 1000 UNIT/ML inj (dialysis orders only) (COMPLETED) Intravenous, ONCE, On Sat06/10/24 at 0000, For 1 dose, Maintenance: 2000 Units IV bolus Drip: 1000 Units/ Hr. STOP heparin last hour of dialysis Stop 1 hour before dialysis end in AVF/AVG. Continue through dialysis in CVC. The total delivered dose is approximately 2,500 to 5,000 units, based on weight and treatment duration assumptions. 1024 (Given - Provid er: Maida Pittman LPN) Iopamidol (Isovue 370) inj 150 mL (COMPLETED) 150 mL, Intracoronary, ONCE, On Sat06/09/24 at 1015, For 1 dose, Intra-Op 0939 (Given - Provider: SAMMIE Hanson) metoprolol succinate XL (toPROL XL) tab 50 mg 50 mg, Oral, BID (.AM/PM), First dose on Sat06/09/24 at 2100, Until Discontinued, Hold for HR less than 60 or SBP below 100 and notify service if dose is held This med should NOT be Crushed or Chewed. 2110 (Given - Provider: Shirin Garcia RN) 0900 (Due) Mirtazapine (Remeron) tab 7.5 mg 7.5 mg, Oral, HS, First dose on Sat06/09/24 at 2200, Until Discontinued 2111 (Given - Provider: Shirin Garcia RN) ondansetron (Zofran) tab 4 mg 4 mg, Oral, Q8H, First dose on Sat06/09/24 at 1200, Until Discontinued 120 (Given - Provider: Sole Prakash RN)2110 (Given - Provider: Shirin Garcia RN) 0600 (OR/Procedure - Provider: Sole Prakash RN - Comment: Dialysis)1400 (Due) oxyCODONE (Oxy IR) tab 5 mg (COMPLETED) 5 mg, Oral, ONCE, On Sat06/09/24 at 1300, For 1 dose 1229 (Given - Provider: Sole Prakash RN) PRN Medication Order 06/08/2024 06/09/2024 06/10/2024 fentaNYL (PF) inj 50 mcg () 50 mcg, IV Push, PRN Pain, Severe, Starting on Sat06/09/24 at 0825, Until Sat06/09/24 at 1024, For 2 hours, To be administered in Cardiac Air Value Tester intra-procedure only When given IV Push its recommended that the dose be given over 3 to 5 minutes., Intra-Op 0820 (Given - Provider: Theo Dominguez RN)0859 (Given - Provider: Theo Dominguez RN) hEParin inj 8,000 Units () 8,000 Units, IV Push, PRN Other, Anticoagulation not at goal, Starting on Sat06/09/24 at 0826, Until Sat06/09/24 at 1025, For 2 hours, To be administered in Cardiac Air Value Tester intra-procedure., Intra-Op 0840 (Given - Provider: Theo Dominguez RN)0915 (Given - Provider: Theo Dominguez RN) hydrOXYzine HCl tab 25 mg (COMPLETED) 25 mg, Oral, ONCE PRN Anxiety, Starting on Sat06/10/24 at 0000, Until Sat06/10/24 at 0656, For 1 dose 0656 (Given - Provid er: Shirin Garcia RN) LORAzepam (Ativan) tab 0.5 mg (COMPLETED) 0.5 mg, Oral, ONCE PRN Anxiety, Starting on Sat06/10/24 at 0000, Until Sat06/10/24 at 0656, For 1 dose 0656 (Given - Provid er: Shirin Garcia RN) midazolam (Versed) 2 MG/2ML inj 1 mg () 1 mg, IV Push, PRN Anxiety, Starting on Sat06/09/24 at 0825, Until Sat06/09/24 at 1024, For 2 hours, To be administered in Cardiac Air Value Tester intra-procedure only, Intra-Op 0820 (Given - Provider: Theo Dominguez, RN)0859 (Given - Provider: Theo Dominguez RN) oxyCODONE (Oxy IR) tab 5 mg 5 mg, Oral, Q4H PRN Pain, Severe, Starting on Sat06/09/24 at 1043, Until Sat06/10/24 at 1916 1051 (Given - Provider: Sole Prakash RN)1913 (Given - Provider: Shirin Garcia, ROSEY) 0342 (Given - Provider: Shirin Garcia, ROSEY) documented in this encounter Advance Directives * [...] Advance Directives occurred with: Patient Care Teams Internal Audit Director Relationship Specialty Start Date End Date Adolph Aldridge MD [address] [facility] [place] [address] PCP - General Family Medicine 10/21/18 documented as of this encounter
--- OUTSIDE RECORDS SUMMARY | 2024-06-29 05:18 | External Medical Summary ---
Author Name Unknown Address Unknown Organization : Laboratory Report Ordering Provider Test Date Status RADHAMES BILLY 06/16/2024 15:19:42 Final Observation Date Value Abnormality Reference (Units ) Status Glucose Point of Care 06/16/2024 15:19:42 99 70-120 (mg/dL) Final Performing Location
--- OUTSIDE RECORDS SUMMARY | 2024-06-29 05:18 | External Medical Summary | Summary of Care ---
Author Name Unknown Organization [facility] Address [address] [place] [address] Phone [phone] Care Team Providers Care Faculty I On Call Medical Assistant Name Role Phone Adolph Aldridge MD Primary Care Provider [phone] Reason for Visit * Reason Comments Referral Encounter Details Date Type Department Care Team (Late st Contact Info) Description 06/11/2024 Documentation Cardiac Studies [facility] [address] [place] [address] Rodney Saha, NATALIA Allergies Active Allergy Reactions Criticality Noted Date [...] 24 Tablet 03/14/2022 Active OneTouch Delica Plus [id number] ns:DM type 2 with diabetic peripheral neuropathy [...] NEEDED FOR ANXIETY 02/12/2024 Active Dexcom G7 Correctional Case Manager Device USE DAILY TO CHECK BLOOD [...] Bleeding hemorrhoids 05/21/2024 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 Report levels to [facility] department weekly. 10. Advised patient that Glyburide, [...] if early screen is normal. 5. Recommend [facility] ultrasound for anatomy screen at 20 weeks [...] 01/23/2024 Does the household have a re lar source of income? (Household - for ages [...] as of this encounter Progress Notes * Rodney Saha, NATALIA - 06/11/2024 3:23 PM EDT I was unable to speak to Alexandra Arguello during her recent admission regarding her referral for phase II cardiac rehab. I mailed Alexandra Arguello a packet of information explaining the program and benefits of participating. The packet also contains instructions on how to enroll in her local hospital should she decide to participate in the future. Rodney Saha, documented in this encounter Plan of Treatment Upcoming Encounters Date Type Department Care Team (Latest Contact Info) Description 06/16/2024 12:57 PM EDT Hospital Encounter [facility], OPERATING ROOM [facility] [address] [place] [phone] Balbir Santiago MD [address] [place] [address] 06/16/2024 12:57 PM EDT - 06/16/2024 2:54 PM EDT Surgery OR C, OPERATING ROOM [facility] [address] [place] [phone] Balbir Santiago MD [address] [place] [address] AV FISTULOGRAM STENT & PERIPHERAL ANGIOPLASTY 07/07/2024 12:30 PM EST Office Visit Orthopaedics [facility] [address] [place] [address] Ary Rowe MD [address] [place] [address] 09/01/2024 1:40 PM EST Office Visit [place] [id number] [place] [phone] Adolph Aldridge MD [address] [place] [address] 10/19/2024 10:00 AM EST Office Visit Cardiology, [facility] [address] [place] [address] Farooq Ross, DO [address] [place] [address] 04/01/2025 2:40 PM EDT Telemedicine Neurology [address] [place] [phone] Eros Marks, DO [address] [place] [address] Scheduled Procedures Name Priority Associated Diagnoses Date/Ti me AV FISTULOGRAM STENT & PERIPHERAL ANGIOPLASTY ESRD (end stage renal disease) on dialysis (HCC) 06/16/2024 12:57 PM EDT COLONOSCOPY FLEXIBLE PROXIMAL DIAGNOSTIC Recall [...] Cancer Screening 05/12/2023 Pap Smear 05/12/2023 05/12/2020, 0104/2018, 09/25/2013, Additional history exists Influenza Vaccine (FLU [...] this encounter Medical Devices Implanted Type Area Storeperson Device Identifier Shelf Expiration Date Model / Serial / Lot Stent Protege Gps [id number] - [id number] Implanted:Qty : 1 on 09/29/2020 by Carmelo Ramos MD at [place] [facility] Left: Chest [employer] : VASCULAR [id number] 09/20/2022 [id number] / / [id number] Stent Viab [id number] - [id number] Implanted:Qty : 1 on 04/16/2023 by Carmelo Ramos MD at OR [facility] Right: Subclavian [employer] [id number] 01/26/2026 [id number] / [id number] / [id number] Stent Synergy Xd Mr [id number] - [id number] Implanted:Qty : 1 on 06/09/2024 by Diamond Mcgowan MD at CARDIAC LABS [facility] Epunchit [id number] 01/21/2026 [id number] / / [id number] documented as of this encounter Advance Directives [...] Advance Directives occurred with: Patient Care Teams Faculty I On Call Medical Assistant Relationship Specialty Start Date End Date Adolph Aldridge MD [address] [place] [address] PCP - General Family Medicine 10/21/18 documented as of this encounter
--- OUTSIDE RECORDS SUMMARY | 2024-06-29 05:18 | External Medical Summary | Summary of Care ---
Author Name Unknown Organization [facility] Address [address] [place] [address] Phone [phone] Care Team Providers Care Departmental Buyer Name Role Phone Adolph Aldridge MD Primary Care Provider Encounter Details Date Type Department Care Team (Late st Contact Info) Description 06/11/2024 Population Health External Data Unspecified Department Allergies [...] 24 Tablet 03/14/2022 Active OneTouch Delica Plus [id number] ns:DM type 2 with diabetic peripheral neuropathy (HCC),Type 2 diabetes mellitus with hemoglobin A1c goal of less than 7.0% ([facility]) use 1 LANCET to TEST BLOOD [...] goal of less than 7.0% ([facility]) Use to check sugars continuously. E 11.9 change every 10 days 3 Each 11 01/06/2024 Active hydrOXYzine HCl 25 MG Oral Tablet TAKE 1 TABLET BY MOUTH EVERY 6 HOURS NEEDED FOR ANXIETY 02/12/2024 Active Dexcom G7 Business Process Architect Device USE DAILY TO CHECK BLOOD SUGARS [...] Bleeding hemorrhoids 05/21/2024 Coronary artery disease involving iroquois coronar y artery 05/21/2024 HFrEF (heart failure [...] and PP sugars <120. Report levels to [facility] department weekly. 10. Advised patient that Glyburide, Metformin, and insulin may be safely used during for the control of blood sugar levels. Alexandra will begin her insulin therapy today. 11. Dietary consult to be done to instruct patient on appropriate nutrition and diet to aid in control of blood sugars. 12. Recommend urine culture each trimester. 13. Recommend [facility] ultrasound for limited anatomy at 12-14 [...] 06/16/2024 1:17 PM EDT Hospital Encounter [facility], OPERATING [facility]OM [facility] [address] [facility] [place] [phone] Balbir Santiago MD [address] [facility], [place] [id number] 06/16/2024 1:17 PM EDT - 06/16/2024 3:14 PM EDT Surgery OR [facility], OPERATING ROOM [facility], [facility] [address] [facility] [place] [phone] Balbir Santiago MD [address] [facility], [place] [id number] AV FISTULOGRAM STENT & PERIPHERAL ANGIOPLASTY 07/07/2024 12:30 PM EST Office Visit Orthopaedics [facility] [address] [place] [address] Ary Rowe MD [address] [place] [address] 09/01/2024 1:40 PM EST Office Visit [facility] [address] [place] [phone] Adolph Aldridge MD [address] [place] [address] 10/19/2024 10:00 AM EST Office Visit Cardiology, [facility] [address] [place] [address] Farooq Ross DO [address] [place] [address] 04/01/2025 2:40 PM EDT Telemedicine Neurology [address] [place] [address] Eros Marks DO [address] [facility] [place] [address] Scheduled Procedures Name Priority Associated Diagnoses [...] this encounter Medical Devices Implanted Type Area Consulting Application Engineer Device Identifier Shelf Expiration Date Model / Serial / Lot Stent Protege Gps [id number] - [id number] Implanted:Qty : 1 on 09/29/2020 by Carmelo Ramos MD at OR [facility] Left: Chest [employer] : VASCULAR [id number] 09/20/2022 [id number] / / [id number] Stent Viab [id number] - [id number] Implanted:Qty : 1 on 04/16/2023 by Carmelo Ramos MD at OR [facility] Right: Subclavian [employer] [id number] 01/26/2026 [id number] / [id number] / [id number] Stent Synergy Xd Mr [id number] - [id number] Implanted:Qty : 1 on 06/09/2024 by Diamond Mcgowan MD at CARDIAC LABS [facility] [employer] [id number] 01/21/2026 [id number] / / [id number] documented as of this encounter Advance Directives [...] 10:35 AM 10/01/2020 6:30 PM This order r eflects the patients wishes and were consensually agreed upon. Question Answer Comments Discussion of Advance Directives occurred with: Patient Care Teams Departmental Buyer Relationship Specialty Start Date End Date Adolph Aldridge MD [address] [facility] [address] PCP - General Family Medicine 10/21/18 documented as of this encounter
--- OUTSIDE RECORDS SUMMARY | 2024-06-29 05:19 | External Medical Summary | Summary of Care ---
Author Name Unknown Organization [facility] Address [address] [place] [address] Phone [phone] Care Team Providers Care Professor Of Environmental Studies Name Role Phone Adolph Aldridge MD Primary Care Provider [phone] Reason for Visit * Reason Onset Date Comments Hospital Follow-Up 06/10/2024 2 week Encounter Details Date Type Department Care Team (Late st Contact Info) Description 06/10/2024 Telephone Cardiology, [facility] [address] [place] [address] Services, Scheduling [address] [place] [address] Hospital Follow-Up (2 week) Allergies Active Allergy Reactions Criticality Noted Date Comments Amoxicillin Low 01/27/2021 Other reaction(s): VOMITING Cefaclor Rash Low 11/23/2011 Cephalosporins Rash Low 05/16/1999 documented as of this encounter (statuses as of 06/10/2024) Medications Medication Sig Dispensed Refills Start Date End Date Status Calcium Acetate (Phos Binder) 667 MG Oral Capsule (Phoslo) Take 3 Caps by mouth three times a day with meals. 270 Cap 3 1 Suspended Additional Information Renal Vitamin 0.8 MG Oral Tablet Take 1 Tablet by mouth daily. 0 Suspended Compressor NebulizerIndicatio ns:Mild intermittent asthma with exacerbation Inhale via nebulizer. 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 24 Tablet 2 Suspended Additional Information OneTouch Delica Plus [id number] ns:DM type 2 with diabetic peripheral neuropathy (HCC),Type 2 diabetes mellitus with hemoglobin A1c goal of less than 7.0% (HCC) use 1 LANCET to TEST BLOOD SUGAR four times a day. 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 1 hour before the first meal of the day. 90 Capsule 3 3 Suspended Additional Information LORazepam 0.5 MG Oral Tablet (Ativan)Indication s:Panic attack TAKE 1 TABLET BY MOUTH EVERY 8 HOURS NEEDED FOR PANIC ATTACKS AND BEFORE DIALYSIS Strength: 0.5 mg 20 Tablet 3 Suspended Additional Information carBAMazepine ER 200 MG Oral Tablet Extended Release 12 Hour (Tegretol-Xr) Take 1 Tablet by mouth 2 times a day in the morning and at bedtime. Suspended Cinacalcet HCl 90 MG Oral Tablet (Sensipar) Take 1 tablet by mouth daily with dinner 30 Tablet 11 3 Suspended Additional Information Mirtazapine 7.5 MG Oral Tablet (Remeron) Take 1 Tablet by mouth at bedtime. Suspended Benzonatate 100 MG Oral CapsuleIndications :Chronic cough Take 2 Capsules by mouth 3 times a day as needed for Cough. 30 Capsule 1 4 Suspended Additional Information Albuterol Sulfate HFA 108 (90 Base) MCG/ACT Inhalation Aerosol SolutionIndication s:Chronic cough,Upper respiratory tract infection, unspecified type Inhale 2 Puffs by mouth every 4 hours as needed for Wheezing. 18 g 6 4 Suspended Additional Information Dexcom G7 SensorIndications: Type 2 diabetes mellitus with hemoglobin A1c goal of less than 7.0% ([facility]) Use to check sugars continuously. E 11.9 change every 10 days 3 Each 11 4 Suspended Additional Information hydrOXYzine HCl 25 MG Oral Tablet TAKE 1 TABLET BY MOUTH EVERY 6 HOURS NEEDED FOR ANXIETY 4 Suspended Dexcom G7 Road Consultant Device USE DAILY TO CHECK BLOOD SUGARS CONTINUOUSLY (DX CODE E11.9) 4 Suspended medroxyPROGESTERon e Acetate 150 MG/ML Intramuscular Suspension Prefilled Syringe (Depo-Provera) INJECT 150 MG INTRAMUSCULARLY (INTO A LARGE MUSCLE) ONCE EVERY 3 MONTHS 1 mL 4 Suspended Additional Information Lidocaine 5 % External Ointment Apply topically to affected area 4 times a day as needed for Pain or Hemorrhoids. 4 Suspended Gabapentin 100 MG Oral Capsule (Neurontin) Take 2 Capsules by mouth in the morning and 2 Capsules before bedtime. Suspended Clopidogrel Bisulfate 75 MG Oral Tablet (Plavix) Take 1 Tablet by mouth in the morning. Suspended Polyethylene Glycol 3350 17 GM Oral Packet (MiraLax) Take 1 Packet by mouth in the morning and 1 Packet before bedtime. Suspended Aspirin 81 MG Oral Tablet Chewable Take 1 Tablet by mouth in the morning. Suspended Acetaminophen 325 MG Oral Tablet (Tylenol) Take 3 Tablets by mouth every 6 hours as needed for Pain, Mild. 30 Tablet 4 Suspended Additional Information buPROPion HCl ER (XL) 150 MG Oral Tablet Extended Release 24 Hour (Wellbutrin XL)Indications:Dep ression with anxiety Take 1 Tablet by mouth in the morning. 30 Tablet 5 4 Suspended Additional Information Atorvastatin Calcium 80 MG Oral Tablet (Lipitor) Take 1 Tablet by mouth every afternoon. 30 Tablet 5 4 Suspended Additional Information Metoprolol Succinate ER 50 MG Oral Tablet Extended Release 24 Hour (toPROL XL) Take 1 Tablet by mouth in the morning and 1 Tablet before bedtime. 60 Tablet 5 4 Suspended Additional Information amLODIPine Besylate 2.5 MG Oral Tablet (Norvasc) Take 1 Tablet by mouth in the morning. 30 Tablet 5 4 Suspended Additional Information Varenicline Tartrate 1 MG Oral Tablet (Chantix)Indicatio ns:Tobacco use Take 1 tablet by mouth twice daily 60 Tablet 2 4 Suspended Additional Information documented as of this encounter (statuses as of 06/10/2024) Active Problems Problem Noted Date Diagnosed Date Chronic total occlusion of coronary artery 06/09 S/P primary angioplasty with coronary stent 04/27 Bleeding hemorrhoids 05/21/2024 Coronary artery disease involving [place] coronar y artery 05/21/2024 HFrEF (heart failure [...] as of this encounter (statuses as of 06/10/2024) Resolved Problems Problem Noted Date Diagnosed Date [...] and PP sugars <120. Report levels to [facility] department weekly. 10. Advised patient that Glyburide, Metformin, and insulin may be safely used during for the control of blood sugar levels. Alexandra will begin her insulin therapy today. 11. Dietary consult to be done to instruct patient on appropriate nutrition and diet to aid in control of blood sugars. 12. Recommend urine culture each trimester. 13. Recommend [facility] ultrasound for limited anatomy at 12-14 weeks, for full anatomy at 18-20 weeks, and for echocardiography at 22-24 weeks. 14. Start testing with twice weekly NST and weekly MATTHEW beginning at 32 weeks or earlier if any evidence of uncontrolled blood sugars, renal abnormalities, or HTN. 15. Recommend [facility] growth ultrasound every 4 weeks after 24 [...] if early screen is normal. 5. Recommend [facility] ultrasound for anatomy screen at 20 weeks [...] as of this encounter (statuses as of 06/10/2024) Immunizations Name Administration Dates Next Due COVID-19 [...] encounter Miscellaneous Notes * Telephone Encounter - Tangela Zarco OSA - 06/10/2024 9:28 AM EDT Pt scheduled on 10/19/24 at [facility] * Telephone Encounter - Marlen Alanis OSA - 06/10/2024 7:[address] Banegas consulted Nothing available in time frame Order Questions Question Answer Department (Single Entry) Cardiology Appt Needed Within: (Specify # of Days, Weeks, Months) 2 Wks Note: If 'Other' is Selected, Enter a Comment Provider MARANDA CHAVEZ documented in this encounter Plan of Treatment Upcoming Encounters Date Type Department Care Team (Latest Contact Info) Description 06/16/2024 1:17 PM EDT Hospital Encounter OR [facility], OPERATING ROOM [facility], [facility] [address] [place] [address] Balbir Santiago MD [address] [place] [address] 06/16/2024 1:17 PM EDT - 06/16/2024 3:14 PM EDT Surgery OR [facility], [facility] [address] [place] [address] Balbir Santiago MD [address] [place], [place] [phone] AV FISTULOGRAM STENT & PERIPHERAL ANGIOPLASTY 07/07/2024 12:30 PM EST Office Visit Orthopaedics [facility] [address] [facility] [place] [address] Ary Rowe MD [address] [facility] [place] [address] 09/01/2024 1:40 PM EST Office Visit [facility] [address] [place] [address] Adolph Aldridge MD [address] [place] [address] 10/19/2024 10:00 AM EST Office Visit Cardiology, [facility] [address] [place] [place] [address] Farooq Ross, [address] [facility] [place] [address] 04/01/2025 2:40 PM EDT Telemedicine Neurology [address] [place] [address] Eros Marks, DO [address] [facility] [place] [address] Scheduled Procedures Name Priority [...] this encounter Medical Devices Implanted Type Area Construction Consultant Device Identifier Shelf Expiration Date Model / Serial / Lot Stent Protege Gps [id number] - [id number] Implanted:Qty : 1 on 09/29/2020 by Carmelo Ramos MD at OR [facility] Left: Chest [employer] : VASCULAR [id number] 09/20/2022 [id number] / / [id number] Stent Viab [id number] - [id number] Implanted:Qty : 1 on 04/16/2023 by Carmelo Ramos MD at OR [facility] Right: Subclavian [employer] [id number] 01/26/2026 [id number] / [id number] / [id number] Stent Synergy Xd Mr 2.38d98oi - [id number] Implanted:Qty : 1 on 06/09/2024 by Diamond Mcgowan MD at [facility]ARDIAC LABS [facility] [employer] [id number] 01/21/2026 [id number] / / [id number] documented as of this encounter Advance Directives * Full Code (Latest Code Status on File) Date Activated Date Inactivated Comments 06/09/2024 9:58 AM This order re flects the patients wishes [...] Advance Directives occurred with: Patient Care Teams Professor Of Environmental Studies Relationship Specialty Start Date End Date Adolph Aldridge MD [address] [place] [address] PCP - General Family Medicine 10/21/18 documented as of this encounter
--- OUTSIDE RECORDS SUMMARY | 2024-06-29 05:19 | External Medical Summary | Summary of Care ---
Author Name Unknown Organization [facility] Address [address] [place] [address] Phone [phone] Care Team Providers Care Meat Slicer Name Role Phone Adolph Aldridge MD Primary Care Provider [phone] Reason for Visit * Reason Onset Date Comments Advice 06/04/2024 HD Access Encounter Details Date Type Department Care Team (Late st Contact Info) Description 06/04/2024 Telephone Vascular Surg [facility] [address] [place], [place] [phone] Carmelo Ramos MD [address], [place] [phone] Advice (HD Access) Allergies Active Allergy Reactions Criticality Noted Date Comments Amoxicillin Low 01/27/2021 Other reaction(s): VOMITING Cefaclor Rash Low 11/23/2011 Cephalosporins Rash Low 05/16/1999 documented as of this encounter (statuses as of 06/08/2024) Medications Medication Sig Dispensed Refills Start Date [...] day E11.9 1 Kit 03/10/20 21 Active Dulera 200-5 MCG/ACT Inhalation Aerosol (Mometasone Furo-Formoterol Fum) Inhale by mouth 2 Puffs in the morning AND 2 Puffs before bedtime. 39 g 3 09/21/19 22 Active Ondansetron HCl 4 MG Oral TabletIndications :Nausea without vomiting Take by mouth 1 Tablet every 6 hours as needed for Nausea. 24 Tablet 03/14/20 22 Active OneTouch Delica Plus [id number] ons:DM type 2 with diabetic peripheral neuropathy [...] hemoglobin A1c goal of less than 7.0% ([facility]) Use to check sugars continuously. E 11.9 change every 10 days 3 Each 11 01/06/20 24 Active hydrOXYzine HCl 25 MG Oral Tablet TAKE 1 TABLET BY MOUTH EVERY 6 HOURS NEEDED FOR ANXIETY 02/12/20 24 Active Dexcom G7 Air Intercept Controller Supervisor Device USE DAILY TO CHECK BLOOD SUGARS CONTINUOUSLY (DX CODE E11.9) 01/11/20 24 Active medroxyPROGESTERo ne Acetate 150 MG/ML Intramuscular Suspension Prefilled Syringe (Depo-Provera) INJECT 150 MG INTRAMUSCULARLY (INTO A LARGE MUSCLE) ONCE EVERY 3 MONTHS 1 mL 03/26/20 24 Active Lidocaine 5 % External Ointment [...] by mouth every afternoon. 30 Tablet 5 05/23/20 24 Active Metoprolol Succinate ER 50 MG Oral Tablet Extended Release 24 Hour (toPROL XL) Take 1 Tablet by mouth in the morning and 1 Tablet before bedtime. 60 Tablet 5 05/23/20 24 Active amLODIPine Besylate 2.5 MG Oral Tablet (Norvasc) Take 1 Tablet by mouth in the morning. 30 Tablet 5 05/23/20 24 Active Vitron-C 65-125 MG Oral Tablet (Iron-Vitamin C 65-125 mg per tab) Take 1 Tablet by mouth in the morning. 30 Tablet 5 05/23/20 24 Active Varenicline Tartrate 1 MG Oral TabletIndications :Tobacco use Take 1 Tablet by mouth in the morning and 1 Tablet before bedtime. As directed on box.. 60 Tablet 3 02/20/20 24 024 Discontinued documented as of this encounter (statuses as of 06/08/2024) Active Problems Problem Noted Date Diagnosed Date S/P primary angioplasty with coronary stent 04/27 Bleeding hemorrhoids 05/21/2024 CAD (coronary artery disease) 05/21/2024 HFrEF (heart failure with reduced ejection [...] as of this encounter (statuses as of 06/08/2024) Resolved Problems Problem Noted Date Diagnosed Date [...] PP sugars <120. Report levels to [facility] department weekly. 10. Advised patient that Glyburide, Metformin, and insulin may be safely used during for the control of blood sugar levels. Alexandra will begin her insulin therapy today. 11. Dietary consult to be done to instruct patient on appropriate nutrition and diet to aid in control of blood sugars. 12. Recommend urine culture each trimester. 13. Recommend [facility] ultrasound for limited anatomy at 12-14 weeks, for full anatomy at 18-20 weeks, and for echocardiography at 22-24 weeks. 14. Start testing with twice weekly NST and weekly MATTHEW beginning at 32 weeks or earlier if any evidence of uncontrolled blood sugars, renal abnormalities, or HTN. 15. Recommend [facility] growth ultrasound every 4 weeks after [...] early screen is normal. 5. Recommend [facility] ultrasound for anatomy screen at [...] Marva CURRIE, contaminated patient to repepat OB [facility] 03/19/2011 01/29/20 17 Overview: 03/19/2011 Needs [...] as of this encounter (statuses as of 06/08/2024) Immunizations Name Administration Dates Next Due COVID-19 [...] above, IM , (FluLaval or Fluzone) 05/26/2023,05/26/2020,06/11/2019,05/02 TD - Tetanus/Diptheria (ADULT) 08/12/2002 TDAP, Age [...] encounter Miscellaneous Notes * Telephone Encounter - Suresh Varma OSA - 06/08/2024 11:53 AM EDT Patient scheduled for right arm fistulagram for Saturday 06/[address] Santiago Case booked Pre-op instructions faxed to HD unit. Spoke to Ary at [facility] and she is going to reach out to patient and arrange transportation. * Telephone Encounter - Suresh Varma OSA - 06/08/2024 11:10 AM EDT Shamir suggested waiting until next week so it's not as close to her cardiac cath procedure. Dr. Santiago, would you be able to do this patient's fistulagram on Saturday 06/16? * Telephone Encounter - Shamir Espinoza CRNP - 06/08/2024 9:29 AM EDT Please go ahead and working on scheduling a fistulagram. ANGÉLICA Harrell 06/08/2024 9:30 AM * Telephone Encounter - Suresh Varma OSA - 06/08/2024 9:20 AM EDT Spoke to Ary from [facility], she said from a dialysis standpoint she doesn't see an issue with patient having her fistulagram that close to her cardiac catheter procedure (06/09), however, she said it would be best to reach out to cardiology to get their input. Please advise * Telephone Encounter - Suresh Varma OSA - 06/05/2024 10:42 AM EDT Will work on scheduling on a Sat/ for after patient has her cardiac cath procedure. Message sent to Caro at [facility] * Telephone Encounter - Anthony Beckett PA-C - 06/04/2024 3:04 PM EDT Suresh/Marlin- This is an on-going issue. See 05/01/[address] Bloom recommended fistulagram and Marlin LVM to offer that procedure with Dr. Santiago, looks likefor 05/07. Apparently, pt did not call back. Please look at surgeon schedules and set pt up for RIGHT arm fistulagram on non- HD day, which wouldbe a Saturday/ Please instruct pt to be NPO after MN Take bath shower evening before surgery and morning of surgery with Dial soap Take AM meds with sip H2O No hold on AM meds Thank you * Telephone Encounter - Suresh Varma OSA - 06/04/2024 2:42 PM EDT Received message from Caro at [facility], please advise if this would be a regular clinic visit or fistulagram Good Afternoon, I am emailing in regards to Augustina Arguello (1985). She has a heart cath appointment on 06-09-24, and from our understanding she can't have a vascular appointment until after that heart cath appointment. So, we are just trying to be proactive and emailing you to see if we could get her in for a vascular appointment for after 06-09-24. She has been complaining of pain at her arterial site during the last hour of her treatment despite good pressures. Her R AVF is swollen, no bruising. Her L AVF is bruised and she doesn't want us using it. If you have any questions, please feel free to call us! Thank you ?? Caro Ricks, [facility] [address], [address] [place], [place] [phone] documented in this encounter Plan of Treatment Upcoming Encounters Date Type Department Care Team (Latest Contact Info) Description 06/09/2024 7:00 AM EDT Hospital Encounter CRS Waiting [facility], Cardiac Recovery Suite Waiting Unit, H [address] [place] [address] Diamond Mcgowan MD [address] [place] [address] 06/09/2024 7:00 AM EDT - 06/09/2024 8:00 AM EDT Surgery CRS Waiting [facility], Cardiac Recovery Suite Waiting Unit, [address] [place] [phone] Diamond Mcgowan MD [address] [place] [address] PTCA, CARDIAC ANGIOPLASTY, PERCUTANEOUS, 1 ARTERY 06/09/2024 7:00 AM EDT Office Visit Cardiology [facility], [place] [address] [facility] [place], [place] [phone] [place], Cardiac Recovery [facility] [address] [place] [facility] [place] [address] 06/16/2024 1:17 PM EDT Hospital Encounter OR [facility], OPERATING ROOM [facility], [facility] [address] [facility] [place] [phone] Balbir Santiago MD [address] [place], [place] [phone] 06/16/2024 1:17 PM EDT - 06/16/2024 3:14 PM EDT Surgery OR [facility], OPERATING ROOM [facility], [facility] [address] [place] [address] Balbir Santiago MD [address] [place], [place] [phone] AV FISTULOGRAM STENT & PERIPHERAL ANGIOPLASTY 07/07/2024 12:30 PM EST Office Visit Orthopaedics [facility] [address] [facility] [place] [address] Ary Rowe MD [address] [facility] [place] [address] 09/01/2024 1:40 PM EST Office Visit [facility] [address] [place] [phone] Adolph Aldridge MD [address] [place], [place] [phone] 04/01/2025 2:40 PM EDT Telemedicine Neurology [address] [place] [address] Eros Marks DO [address] [facility] [place] [address] Scheduled Procedures Name Priority Associated Diagnoses Date/Ti me PTCA, CARDIAC ANGIOPLASTY, PERCUTANEOUS, 1 ARTERY Chronic total occlusion of coronary artery 06/09/2024 7:00 AM EDT AV FISTULOGRAM STENT & PERIPHERAL ANGIOPLASTY ESRD [...] 05/26/2023, 05/26/2020, 05/26/2020, Additional history exists HbA1c 11/19/2024 05/22/2024, 010 12/2023, 05/28/2023, Additional history exists Depression Monitoring 05/11/2025 05/11/2024 [...] this encounter Medical Devices Implanted Type Area Chief Medical Technologist Device Identifier Shelf Expiration Date Model / Serial / Lot Stent Protege Gps [id number] - [id number] Implanted:Qty : 1 on 09/29/2020 by Carmelo Ramos MD at OR [facility] Left: Chest [employer] : VASCULAR [id number] 09/20/2022 [id number] / / [id number] Stent Viab [id number] - [id number] Implanted:Qty : 1 on 04/16/2023 by Carmelo Ramos MD at OR [facility] Right: Subclavian [employer] [id number] 01/26/2026 [id number] / [id number] / [id number] documented as of this encounter Advance Directives * Full Code (Latest Code Status on File) Date Activated Date Inactivated Comments 05/20/2024 8:40 [...] Advance Directives occurred with: Patient Care Teams Meat Slicer Relationship Specialty Start Date End Date Adolph Aldridge MD [address] [place] [facility] [place] [address] PCP - General Family Medicine 10/21/18 documented as of this encounter
--- OUTSIDE RECORDS SUMMARY | 2024-06-29 05:19 | External Medical Summary ---
Author Name Unknown Address Unknown Organization [id number]:LAB[facility]ATORY [facility] [place] [facility] [address] [facility] [address] Laboratory Report Ordering Provider Test Date Status SYEDA BONILLAEdmundo 06/10/2024 08:05:12 Final Observation Date Value Abnormality Reference (Units ) Status Hepatitis B virus core Ab [Presence] in Serum 06/10/2024 08:05:12 Negative Negative Final Performing Location LAB[facility]ORY [facility] [place] [address] [facility] [address]
--- OUTSIDE RECORDS SUMMARY | 2024-06-29 05:19 | External Medical Summary ---
Author Name Unknown Address Unknown Organization K01:LAB[facility]ATORY [place] [address] [facility] [address] Laboratory Report Ordering Provider Test Date Status KENNA MCCONNELL 06/09/2024 08:22:46 Final hCG can serve as a screening assay for . However, early may not give a positive hCG test result. In addition, some non- women may have a hCG result slightly higher than the reference limit. Careful interpretation of the hCG with clinical history is required to determine whether the patient may be . Observation Date Value Abnormality Reference (Units ) Status Choriogonadotropin.int act+Beta subunit [Units/volume] in Serum or Plasma 06/09/2024 08:22:46 5.7 Above high normal <=1.0 (mIU/mL) Final Performing Location LABORATORY [facility] [place] - [facility] [address] [facility] [address]
--- OUTSIDE RECORDS SUMMARY | 2024-06-29 05:19 | External Medical Summary | Summary of Care ---
Author Name Unknown Organization [facility] Address [address] [place] [address] Phone [phone] Care Team Providers Care Lead Qa Analyst Name Role Phone Adolph Aldridge MD Primary Care Provider [phone] Reason for Visit * Reason Onset Date Comments Advice 06/04/2024 HD Access Encounter Details Date Type Department Care Team (Late st Contact Info) Description 06/04/2024 Telephone Vascular Surg [facility] [address] [place], [place] [phone] Carmelo Ramos MD [address] [place], [place] [phone] Advice (HD Access) Allergies Active Allergy Reactions [...] Tablet 03/14/20 22 Active OneTouch Delica Plus Puvyyj12JCvoiuvfk ons:DM type 2 with diabetic peripheral neuropathy [...] goal of less than 7.0% ([facility]) Use to check sugars continuously. E 11.9 change every 10 days 3 Each 11 01/06/20 24 Active hydrOXYzine HCl 25 MG Oral Tablet TAKE 1 TABLET BY MOUTH EVERY 6 HOURS NEEDED FOR ANXIETY 02/12/20 24 Active Dexcom G7 Fashion Marketer Device USE DAILY TO CHECK BLOOD SUGARS [...] and PP sugars <120. Report levels to [facility] department weekly. 10. Advised patient that Glyburide, Metformin, and insulin may be safely used during for the control of blood sugar levels. Alexandra will begin her insulin therapy today. 11. Dietary consult to be done to instruct patient on appropriate nutrition and diet to aid in control of blood sugars. 12. Recommend urine culture each trimester. 13. Recommend [facility] ultrasound for limited anatomy at 12-14 weeks, for full anatomy at 18-20 weeks, and for echocardiography at 22-24 weeks. 14. Start testing with twice weekly NST and weekly MATTHEW beginning at 32 weeks or earlier if any evidence of uncontrolled blood sugars, renal abnormalities, or HTN. 15. Recommend [facility] growth ultrasound every 4 weeks after [...] if early screen is normal. 5. Recommend [facility] ultrasound for anatomy screen at 20 [...] Marva CURRIE, contaminated patient to repepat OB [facility] 03/19/2011 01/29/20 17 Overview: 03/19/2011 Needs enrolled [...] 9:20 AM EDT Spoke to Ary from [facility], she said from a dialysis standpoint [...] cath procedure. Message sent to Caro at [facility] * Telephone Encounter - Anthony Beckett PA-C [...] PM EDT Received message from Caro at [facility], please advise if this would be a [...] call us! Thank you ?? Caro Ricks, [facility] [address] [place] [address] [phone] documented in this encounter Plan of Treatment Upcoming Encounters Date Type Department Care Team (Latest Contact Info) Description 06/09/2024 7:00 AM EDT Hospital Encounter [place] [facility] Card[place] Suite Waiting Unit, H [address] [place] [address] Diamond Mcgowan MD [address] [place] [address] 06/09/2024 7:00 AM EDT - 06/09/2024 8:00 AM EDT Surgery [facility] [place] Cardiac Recovery Suite Waiting Unit, [address] [place] [address] Diamond Mcgowan MD [address] [place] [address] PTCA, CARDIAC ANGIOPLASTY, PERCUTANEOUS, 1 ARTERY 06/09/2024 7:00 AM EDT Office Visit Cardiology [facility] [place] [address] [facility] [place] [phone] [facility] Cardiac [facility] [address] [facility] [place] [address] 07/07/2024 12:30 PM EST Office Visit Orthopaedics [facility] [address] [facility] [place] [address] Ary Rowe MD [address] [place] [address] 09/01/2024 1:40 PM EST Office Visit [facility] [address] [place] [phone] Adolph Aldridge MD [address] [place], [place] [phone] 04/01/2025 2:40 PM EDT Telemedicine Neurology [address] [place] [address] Eros Marks, DO [address] [facility] [place] [address] Scheduled Procedures Name [...] Cancer Screening 05/12/2023 Pap Smear 05/12/2023 05/12/2020, 01/04/2018, 09/25/2013, Additional history exists Influenza Vaccine (FLU shot) (#1) 2024 05/26/2023, 05/26/2020, 05/26/2020, Additional history exists HbA1c 11/19/2024 05/22/2024, 12/2023, 05/28/2023, Additional history exists Depression Monitoring [...] this encounter Medical Devices Implanted Type Area Vp Of Product Device Identifier Shelf Expiration Date Model / Serial / Lot Stent Protege Gps [id number] - [id number] Implanted:Qty : 1 on 09/29/2020 by Carmelo Ramos MD [place] [facility] Left: Chest [employer] : VASCULAR [id number] 09/20/2022 [id number] -40-80 / / [id number] Stent Viab [id number] - [id number] Implanted:Qty : 1 on 04/16/2023 by Carmelo Ramos MD [place] [facility] Right: Subclavian [employer] [id number] 01/26/2026 [id number] / [id number] / [id number] documented as of this encounter Advance Directives [...] Advance Directives occurred with: Patient Care Teams Lead Qa Analyst Relationship Specialty Start Date End Date Adolph Aldridge MD [address] [facility] [place] [address] PCP - General Family Medicine 10/21/18 documented as of this encounter
--- OUTSIDE RECORDS SUMMARY | 2024-06-29 05:19 | External Medical Summary ---
Author Name Unknown Address Unknown Organization K01:LABORATORY [facility] [place] [address] [place] [address] Laboratory Report Ordering Provider Test Date Status MATTHEW BRUMFIELD 06/10/2024 06:22:00 Final Observation Date Value Abnormality Reference (Units ) Status Hep B Core IgM 06/10/2024 06:22:00 Negative Negat jeromy Final Performing Location LABORATORY [facility] - [address] [place] [address]
--- OUTSIDE RECORDS SUMMARY | 2024-06-29 05:19 | External Medical Summary ---
Author Name Unknown Address Unknown Organization : Laboratory Report Ordering Provider Test Date Status KENNA MCCONNELL 06/09/2024 09:09:15 Final NORMAL (NON-HEPARINIZED) 74- 137 SECONDS
HEPARINIZED 200+ SECONDS
CRITICAL GREATER THAN 1000 SECONDS
null Observation Date Value Abnormality Reference (Units ) Status Kaolin activated time [Units/volume] in Blood 06/09/2024 09:09:15 287 50-1000 (secs) Final Performing Location
--- OUTSIDE RECORDS SUMMARY | 2024-06-29 05:19 | External Medical Summary ---
Author Name Unknown Address Unknown Organization K01:LABORATORY [facility] - [address] [place] [address] Laboratory Report Ordering Provider Test Date Status VINITA BONILLA 06/10/2024 08:05:12 Final Observation Date Value Abnormality Reference (Units ) Status Hep B surface Ag 06/10/2024 08:05:12 Negative Neg ative Final Performing Location LABORATORY [facility] - [address] [place] [address]
--- OUTSIDE RECORDS SUMMARY | 2024-06-29 05:19 | External Medical Summary ---
Author Name Unknown Address Unknown Organization K01:LABORATORY [facility] - [address] [place] [address] Laboratory Report Ordering Provider Test Date Status VINITA BONILLA 06/10/2024 08:05:12 Final Observation Date Value Abnormality Reference (Units ) Status Hep C Ab 06/10/2024 08:05:12 Negative Negative Final Further HCV quantitative lev ting not performed per protocol. Performing Location LABORATORY [facility] - [address] [place] [address]
--- OUTSIDE RECORDS SUMMARY | 2024-06-29 05:19 | External Medical Summary ---
Author Name Unknown Address Unknown Organization : Laboratory Report Ordering Provider Test Date Status KENNA MCCONNELL 06/09/2024 09:43:21 Final NORMAL (NON-HEPARINIZED) 74- 137 SECONDS
HEPARINIZED 200+ SECONDS
CRITICAL GREATER THAN 1000 SECONDS
null Observation Date Value Abnormality Reference (Units ) Status Kaolin activated time [Units/volume] in Blood 06/09/2024 09:43:21 293 50-1000 (secs) Final Performing Location
--- OUTSIDE RECORDS SUMMARY | 2024-06-29 05:19 | External Medical Summary ---
Author Name Unknown Address Unknown Organization : Laboratory Report Ordering Provider Test Date Status KENNA MCCONNELL 06/09/2024 08:21:34 Final NORMAL (NON-HEPARINIZED) 74- 137 SECONDS
HEPARINIZED 200+ SECONDS
CRITICAL GREATER THAN 1000 SECONDS
null Observation Date Value Abnormality Reference (Units ) Status Kaolin activated time [Units/volume] in Blood 06/09/2024 08:21:34 122 50-1000 (secs) Final Performing Location
--- OUTSIDE RECORDS SUMMARY | 2024-06-29 05:19 | External Medical Summary ---
Author Name Unknown Address Unknown Organization K01:[facility]ORY [facility] [place] [address] [facility] [address] Laboratory Report Ordering Provider Test Date Status YINA BRIGHT 06/10/2024 03:26:00 Final Observation Date Value Abnormality Reference (Units ) Status HbA1C 06/10/2024 03:26:00 5.1 4.0-5.6 (% ) Final The use of HbA1c to monitor glycemic status is based on normal hemoglobin and HbA composition. This test should not be used in patients with abnormal hemoglobin that affects the half life of the red blood cell or the in vivo glycation rates. Glucose, estimated average 06/10/2024 03:26:00 100 <126 (mg/dL) Final Performing Location [facility] [place] [address] [facility] [address]
--- OUTSIDE RECORDS SUMMARY | 2024-06-29 05:19 | External Medical Summary ---
Author Name Unknown Address Unknown Organization K01:LABORATORY [facility] - [address] [place] [facility] [place] [address] Laboratory Report Ordering Provider Test Date Status MATTHEW BRUMFIELD 06/10/2024 06:22:00 Final Observation Date Value Abnormality Reference (Units ) Status Hep B surface Ag 06/10/2024 06:22:00 Negative Neg ative Final Performing Location LABORATORY [facility] - [address] [place] [address]
--- OUTSIDE RECORDS SUMMARY | 2024-06-29 05:19 | External Medical Summary ---
Author Name Unknown Address Unknown Organization K01:LABORATORY [place] [address] [facility] [address] Laboratory Report Ordering Provider Test Date Status YG HERNANDEZ 06/10/2024 06:22:00 Final Observation Date Value Abnormality Reference (Units ) Status BUN 06/10/2024 06:22:00 52 Above high normal 6-20 (mg/dL) Final Creatinine 06/10/2024 06:22:00 5.8 Above high normal 0.5-1.0 (mg/dL) Final Glomerular filtration rate/1.73 sq M.predicted [Volume Rate/Area] in Serum, Plasma or Blood by Creatinine-based formula (CKD-EPI) 06/10/2024 06:22:00 9 Below low normal >=60 (mL/min) Final eGFR is calculated based on the CKD-EPI 2020 equation. Sodium 06/10/2024 06:22:00 134 Below low normal 135 -146 (mmol/L) Final Potassium 06/10/2024 06:22:00 6.6 Above upper panic li mits 3.5-5.1 (mmol/L) Final Cl 06/10/2024 06:22:00 90 Below low normal 98- 107 (mmol/L) Final CO2 06/10/2024 06:22:00 29 22-32 (mmo l/L) Final Anion gap 06/10/2024 06:22:00 15 7-15 (mmol /L) Final Glucose 06/10/2024 06:22:00 116 70-120 (mg /dL) Final Calcium 06/10/2024 06:22:00 8.3 Below low normal 8.4 -10.2 (mg/dL) Final Albumin 06/10/2024 06:22:00 3.7 Below low normal 3.8 -5.0 (g/dL) Final Phosphate 06/10/2024 06:22:00 6.2 Above high normal 2. 5-4.8 (mg/dL) Final Performing Location [place] [address] [facility] [address]
--- OUTSIDE RECORDS SUMMARY | 2024-06-29 05:19 | External Medical Summary ---
Author Name Unknown Address Unknown Organization : Laboratory Report Ordering Provider Test Date Status KENNA MCCONNELL 06/09/2024 13:39:12 Final NORMAL (NON-HEPARINIZED) 74- 137 SECONDS
HEPARINIZED 200+ SECONDS
CRITICAL GREATER THAN 1000 SECONDS
null Observation Date Value Abnormality Reference (Units ) Status Kaolin activated time [Units/volume] in Blood 06/09/2024 13:39:12 159 50-1000 (secs) Final Performing Location
--- OUTSIDE RECORDS SUMMARY | 2024-06-29 05:19 | External Medical Summary ---
Author Name Unknown Address Unknown Organization K01:[facility] [place] [address] [address] [facility] [address] Laboratory Report Ordering Provider Test Date Status VINITA BONILLA 06/10/2024 08:05:12 Correction Observation Date Value Abnormality Reference (Units ) Status Hepatitis B virus surface Ab [Units/volume] in Serum or Plasma by Immunoassay 06/10/2024 08:05:12 11.9 (mIU/mL) Correction Changed result: Previously r eported as 10.1 mIU/mL on 06/10/2024 at 1308 EDT. Hepatitis B virus surface Ab [Presence] in Serum by Immunoassay 06/10/2024 08:05:12 Positive Final HEPATITIS B SURFACE ANTIBODY , INTERPRETATION 06/10/2024 08:05:12 Immune to Hepatitis B Virus Final POSITIVE: >=11.5 mIU/mL
INDETERMINATE: 8.5-<11.5 mIU/mL
NEGATIVE: <8.5 mIU/mL Performing Location [facility] [place] [address] [facility] [address]
--- OUTSIDE RECORDS SUMMARY | 2024-06-29 05:19 | External Medical Summary | Summary of Care ---
Author Name Unknown Organization [facility] Address [address] [place] [address] Phone [phone] Care Team Providers Care Artist Suspect Name Role Phone Adolph Aldridge MD Primary Care Provider [phone] Reason for Visit * Reason Onset Date Comments Advice 06/04/2024 HD Access Encounter Details Date Type Department Care Team (Late st Contact Info) Description 06/04/2024 Telephone Vascular Surg [facility] [address] [place], [place] [phone] Carmelo Ramos MD [address] [place], [place] [phone] Advice (HD Access) Allergies Active Allergy Reactions [...] Tablet 03/14/20 22 Active OneTouch Delica Plus [id number] ons:DM type 2 with diabetic peripheral neuropathy [...] hemoglobin A1c goal of less than 7.0% ([facility]) Use to check sugars continuously. E 11.9 change every 10 days 3 Each 11 01/06/20 24 Active hydrOXYzine HCl 25 MG Oral Tablet TAKE 1 TABLET BY MOUTH EVERY 6 HOURS NEEDED FOR ANXIETY 02/12/20 24 Active Dexcom G7 Packaging Inspector Device USE DAILY TO CHECK BLOOD SUGARS [...] and PP sugars <120. Report levels to [facility] department weekly. 10. Advised patient that Glyburide, Metformin, and insulin may be safely used during for the control of blood sugar levels. Alexandra will begin her insulin therapy today. 11. Dietary consult to be done to instruct patient on appropriate nutrition and diet to aid in control of blood sugars. 12. Recommend urine culture each trimester. 13. Recommend [facility] ultrasound for limited anatomy at 12-14 weeks, for full anatomy at 18-20 weeks, and for echocardiography at 22-24 weeks. 14. Start testing with twice weekly NST and weekly MATTHEW beginning at 32 weeks or earlier if any evidence of uncontrolled blood sugars, renal abnormalities, or HTN. 15. Recommend [facility] growth ultrasound every 4 weeks after [...] if early screen is normal. 5. Recommend [facility] ultrasound for anatomy screen at 20 [...] contaminated patient to repepat OB [facility] 03/19/2011 01/29/20 17 Overview: 03/19/2011 [...] encounter Miscellaneous Notes * Telephone Encounter - Ami Lee PA-C - 06/08/2024 12:17 PM EDT Orders signed and held * Telephone Encounter - Suresh Varma OSA - 06/08/2024 11:53 AM EDT Patient scheduled for right arm fistulagram for Saturday 06/[address] Jack Cardona booked Pre-op instructions faxed to HD unit. Spoke to Ary at [facility] and she is going to reach [...] 9:20 AM EDT Spoke to Ary from [facility], she said from a dialysis standpoint [...] cath procedure. Message sent to Caro at [facility] * Telephone Encounter - Anthony Beckett PA-C - 06/04/2024 3:04 PM EDT [place]- This is an on-going issue. See 05/01/24 [...] PM EDT Received message from Caro at [facility], please advise if this would be a [...] call us! Thank you ?? Caro Ricks, [facility] [address], [address] [place] [address] [phone] documented in this encounter Plan of Treatment Upcoming Encounters Date Type Department Care Team (Latest Contact Info) Description 06/09/2024 7:00 AM EDT Hospital Encounter [facility], Cardiac Recovery Suite Waiting Unit, H [address] [place] [address] Diamond Mcgowan MD [address] [place] [address] 06/09/2024 7:00 AM EDT - 06/09/2024 8:00 AM EDT Surgery [facility], Cardiac Recovery Suite Waiting Unit, H [address] [facility] [place] [address] Diamond Mcgowan MD [address] [place] [address] PTCA, CARDIAC ANGIOPLASTY, PERCUTANEOUS, 1 ARTERY 06/09/2024 7:00 AM EDT Office Visit Cardiology [facility] [place] [address] [place] [address] [facility] Cardiac Recovery [facility] [address] [place] [address] 06/16/2024 1:17 PM EDT Hospital Encounter OR [facility], OPERATING ROOM [facility], [facility] [address] [facility] [place] [address] Balbir Santiago MD [address] [place] [address] 06/16/2024 1:17 PM EDT - 06/16/2024 3:14 PM EDT Surgery OR [facility], OPERATING ROOM [facility], [facility] [address] [facility] [place] [phone] Balbir Santiago MD [address] [place] [address] AV FISTULOGRAM STENT & PERIPHERAL ANGIOPLASTY 07/07/2024 12:30 PM EST Office Visit Orthopaedics [facility] [address] [facility] [place] [address] Ary Rowe MD [address] [facility] [place] [address] 09/01/2024 1:40 PM EST Office Visit [facility] [address] [place] [phone] Adolph Aldridge MD [address] [place] [address] 04/01/2025 2:40 PM EDT Telemedicine Neurology [place] [...] Cancer Screening 05/12/2023 Pap Smear 05/12/2023 05/12/2020, /0 04/2018, 09/25/2013, Additional history exists Influenza Vaccine (FLU shot) (#1) 2024 05/26/2023, 05/26/2020, 05/26/2020, Additional history exists HbA1c 11/19/2024 05/22/2024, 0 12/2023, 05/28/2023, Additional history exists Depression Monitoring [...] this encounter Medical Devices Implanted Type Area Certified Coatings Inspector Device Identifier Shelf Expiration Date Model / Serial / Lot Stent Protege Gps [id number] - [id number] Implanted:Qty : 1 on 09/29/2020 by Carmelo Ramos MD at OR [facility] Left: Chest [employer] : VASCULAR [id number] 09/20/2022 [id number] / / [id number] Stent Viab [id number] - [id number] Implanted:Qty : 1 on 04/16/2023 by Carmelo Ramos MD at OR [facility] Right: Subclavian [employer] [id number] 01/26/2026 [id number] / [id number] / [id number] documented as of this encounter Advance Directives [...] Advance Directives occurred with: Patient Care Teams Artist Suspect Relationship Specialty Start Date End Date Adolph Aldridge MD [address] [facility] [address] PCP - General Family Medicine 10/21/18 documented as of this encounter
--- OUTSIDE RECORDS SUMMARY | 2024-06-29 05:19 | External Medical Summary ---
Author Name Unknown Address Unknown Organization K01:[facility] [place] [address] [place] [address] Laboratory Report Ordering Provider Test Date Status FIOR LEIVA 06/09/2024 08:22:46 Final Observation Date Value Abnormality Reference (Units ) Status BUN 06/09/2024 08:22:46 35 Above high normal 6-20 (mg/dL) Final Creatinine 06/09/2024 08:22:46 4.5 Above high normal 0.5-1.0 (mg/dL) Final Glomerular filtration rate/1.73 sq M.predicted [Volume Rate/Area] in Serum, Plasma or Blood by Creatinine-based formula (CKD-EPI) 06/09/2024 08:22:46 12 Below low normal >=60 (mL/min) Final eGFR is calculated based on the CKD-EPI 2020 equation. Sodium 06/09/2024 08:22:46 138 135-146 (m mol/L) Final Potassium 06/09/2024 08:22:46 5.4 Above high normal 3. 5-5.1 (mmol/L) Final Cl 06/09/2024 08:22:46 92 Below low normal 98- 107 (mmol/L) Final CO2 06/09/2024 08:22:46 32 22-32 (mmo l/L) Final Anion gap 06/09/2024 08:22:46 14 7-15 (mmol /L) Final Glucose 06/09/2024 08:22:46 134 Above high normal 70 -120 (mg/dL) Final Calcium 06/09/2024 08:22:46 9.7 8.4-10.2 ( mg/dL) Final Albumin 06/09/2024 08:22:46 3.9 3.8-5.0 (g /dL) Final Phosphate 06/09/2024 08:22:46 5.0 Above high normal 2. 5-4.8 (mg/dL) Final Performing Location LABORATORY C - [address] [place] [address]
--- OUTSIDE RECORDS SUMMARY | 2024-06-29 05:19 | External Medical Summary ---
Author Name Unknown Address Unknown Organization K01:[facility]ATORY [facility] - [address] [facility] [address] [facility] [address] Laboratory Report Ordering Provider Test Date Status FIOR LEIVA 06/09/2024 08:22:46 Final Observation Date Value Abnormality Reference (Units ) Status WBC, Total 06/09/2024 08:22:46 3.55 Below low normal 4.00-10.80 (K/uL) Final RBC 06/09/2024 08:22:46 2.48 3.85-5.15 (M/uL) Final Hemoglobin 06/09/2024 08:22:46 8.7 Below low normal 12.0-15.3 (g/dL) Final HCT 06/09/2024 08:22:46 27.7 Below low normal 36.0-45.2 (%) Final MCV 06/09/2024 08:22:46 111.7 81.5-97.5 (fL) Final MCH 06/09/2024 08:22:46 35.1 27.0-34.0 (pg) Final MCHC 06/09/2024 08:22:46 31.4 32.0-36.0 (g/dL) Final RDW 06/09/2024 08:22:46 20.0 11.5-15.5 (%) Final Platelets 06/09/2024 08:22:46 98 Below low normal 140-400 (K/uL) Final MPV 06/09/2024 08:22:46 9.9 6.6-11.1 (fL) Final Nucleated erythrocytes/100 leukocytes [Ratio] in Blood by Automated count 06/09/2024 08:22:46 0 <=0 (/100 WBCs) Final Performing Location LAB[facility]ORY [facility] - [address] [place] [address]
--- OUTSIDE RECORDS SUMMARY | 2024-06-29 05:19 | External Medical Summary ---
Author Name Unknown Address Unknown Organization K01:[facility] [place] [address] [place] [address] Laboratory Report Ordering Provider Test Date Status MATTHEW BRUMFIELD 06/10/2024 06:22:00 Final Observation Date Value Abnormality Reference (Units) Status Hepatitis B virus surface Ab [Units/volume] in Serum or Plasma by Immunoassay 06/10/2024 06:22:00 10.7 (mIU/mL) Final Hepatitis B virus surface Ab [Presence] in Serum by Immunoassay 06/10/2024 06:22:00 Indeterminate Final HEPATITIS B SURFACE ANTIBODY, INTERPRETATION 06/10/2024 06:22:00 Suggest repeat testing in 1 to 3 months. Final POSITIVE: >=11.5 mIU/mL
INDETERMINATE: 8.5-<11.5 mIU/mL
NEGATIVE: <8.5 mIU/mL Performing Location [facility] [place] [address] [place] [address]
--- OUTSIDE RECORDS SUMMARY | 2024-06-29 05:19 | External Medical Summary ---
Author Name Unknown Address Unknown Organization K01:LABORATORY [facility] - [address] [facility] [address] Laboratory Report Ordering Provider Test Date Status DEANGELOYINA 06/10/2024 03:27:00 Final Observation Date Value Abnormality Reference (Units ) Status Triglyceride 06/10/2024 03:27:00 78 <=174 ( mg/dL) Final Triglyceride Reference Range s (mg/dL):
<150 Acceptable
150-174 Borderline high
175-499 High
>=500 Very high Cholesterol 06/10/2024 03:27:00 134 <200 (mg /dL) Final Total Cholesterol Reference Ranges (mg/dL):
<200 Desirable
200-239 Borderline high
>=240 High HDL 06/10/2024 03:27:00 47 Below low normal >49 (mg/dL) Final HDL Cholesterol Reference Ra nges (mg/dL):
>=60 High (Desirable)
<50 Low (Undesirable) For Females
<40 Low (Undesirable) For Males NON-HDL CHOLESTEROL 06/10/2024 03:27:00 87 <=159 (mg/dL) Final Non-HDL Cholesterol Referenc e Range (mg/dL):
<100 Target level for high risk ASCVD patient
<130 Optimal for general population
130-159 Near optimal for general population
160-189 Borderline High
190-219 High
>=220 Very High LDL, (calculated) 06/10/2024 03:27:00 71 <= 129 (mg/dL) Final LDL Cholesterol Reference Ra nges (mg/dL):
<70 Target level for high risk ASCVD patient
<100 Optimal for general population
100-129 Near optimal for general population
130-159 Borderline high
160-189 High
>=190 Very high Performing Location LABORATORY [facility] - [address] [place] [address]
--- OUTSIDE RECORDS SUMMARY | 2024-06-29 05:19 | External Medical Summary ---
Author Name Unknown Address Unknown Organization K01:LABORATORY [facility] - [address] [place] [address] Laboratory Report Ordering Provider Test Date Status VINITA BONILLA 06/10/2024 08:05:12 Final Observation Date Value Abnormality Reference (Units ) Status Hep B Core IgM 06/10/2024 08:05:12 Negative Negat jeromy Final Performing Location [facility] - [address] [place] [address]
--- OUTSIDE RECORDS SUMMARY | 2024-06-29 05:20 | External Medical Summary | Summary of Care ---
Author Name Unknown Organization [facility] Address [address] [place] [address] Phone [phone] Care Team Providers Care Deckhand Clam Dredge Name Role Phone Evi Aldridge MD Primary Care Provider [phone] Reason for Visit * Reason Onset Date Comments Hospital Follow-Up 05/23/2024 Encounter Details Date Type Department Care Team (Late st Contact Info) Description 05/23/2024 Telephone [facility] [address] [place] [address] Evi Aldridge MD [address] [place] [address] Hospital Follow-Up Allergies Active Allergy Reactions Criticality Noted Date Comments Amoxicillin Low 01/27/2021 Other reaction(s): VOMITING Cefaclor Rash Low 11/23/2011 Cephalosporins Rash Low 05/16/1999 documented as of this encounter (statuses as of 05/28/2024) Medications Medication Sig Dispensed Refills Start Date [...] 24 Tablet 03/14/2022 Active OneTouch Delica Plus [id number] ns:DM type 2 with diabetic peripheral neuropathy [...] A1c goal of less than 7.0% ([facility]) Use to check sugars continuously. E 11.9 change every 10 days 3 Each 11 01/06/2024 Active hydrOXYzine HCl 25 MG Oral Tablet TAKE 1 TABLET BY MOUTH EVERY 6 HOURS NEEDED FOR ANXIETY 02/12/2024 Active Dexcom G7 Utilities Equipment Repairer Device USE DAILY TO CHECK BLOOD SUGARS [...] the morning. 30 Tablet 5 05/23/2024 Active Vitron-C 65-125 MG Oral Tablet (Iron-Vitamin C 65-125 mg per tab) Take 1 Tablet by mouth in the morning. 30 Tablet 5 05/23/2024 Active documented as of this encounter (statuses as of 05/28/2024) Active Problems Problem Noted Date Diagnosed Date [...] as of this encounter (statuses as of 05/28/2024) Resolved Problems Problem Noted Date Diagnosed Date [...] and PP sugars <120. Report levels to [facility] department weekly. 10. Advised patient that Glyburide, Metformin, and insulin may be safely used during for the control of blood sugar levels. Alexandra will begin her insulin therapy today. 11. Dietary consult to be done to instruct patient on appropriate nutrition and diet to aid in control of blood sugars. 12. Recommend urine culture each trimester. 13. Recommend [facility] ultrasound for limited anatomy at 12-14 weeks, for full anatomy at 18-20 weeks, and for echocardiography at 22-24 weeks. 14. Start testing with twice weekly NST and weekly MATTHEW beginning at 32 weeks or earlier if any evidence of uncontrolled blood sugars, renal abnormalities, or HTN. 15. Recommend [facility] growth ultrasound every 4 weeks [...] of the hypertension. 2. Obtain baseline labwork EJS (if not already done) to include 24 [...] if early screen is normal. 5. Recommend [facility] ultrasound for anatomy screen at [...] Marva CURRIE, contaminated patient to repepat OB [facility] 03/19/2011 01/29/20 17 Overview: 03/19/2011 Needs [...] as of this encounter (statuses as of 05/28/2024) Immunizations Name Administration Dates Next Due COVID-19 [...] encounter Miscellaneous Notes * Telephone Encounter - Natalie Bruce OSA - 05/28/2024 2:54 PM EDT LMOM for patient to call back and schedule for HD appt * Telephone Encounter - Jacqueline Ayala OSA - 05/23/2024 1:01 PM EDT Patient Name: ALEXANDRA ARGUELLO([id number]) Sex: Female : 1985 PCP: EVI ALDRIDGE Center: [facility] Types of orders made on 05/23/2024: IP Post Discharge , Lab, Medications Order Date:05/23/2024 Ordering User:MARILYNN DIAMOND [[id number]] Attending Provider:Samantha Cevallos DO [[id number]] Authorizing Provider: Marilynn Diamond MD [[id number]] Department:[facility]ANSPL[facility] IP [facility][[id number]] Order Specific Information Order: RETURN APPT [CUSTOM: [id number]] Order #: [id number]: 1 Priority: Routine Class: Nursing Unit Department (Single Entry) -> Family Practice Appt Needed Within: (Specify # of Days, Weeks, Months) -> 1 Wk Provider -> EVI ALDRIDGE Released on: 05/23/2024 12:55 PM Priority: Routine Class: Nursing Unit Department (Single Entry) -> Family Practice Appt Needed Within: (Specify # of Days, Weeks, Months) -> 1 Wk Provider -> EVI ALDRIDGE Released on: 05/23/2024 12:55 PM documented in this encounter Plan of Treatment Upcoming Encounters Date Type Department Care Team (Latest Contact Info) Description 06/04/2024 10:10 AM EDT Office Visit [facility] [address] [place] [address] Neda Simons DO [address] [place] [address] 06/09/2024 7:00 AM EDT Hospital Encounter CRS Waiting [facility], Cardiac Recovery Suite Waiting Unit, [address] [place] [address] Diamond Mcgowan MD [address], [place] [address] 06/09/2024 7:00 AM EDT - 06/09/2024 8:00 AM EDT Surgery CRS Waiting [facility], Cardiac Recovery Suite Waiting Unit, [address] [place] [address] Diamond Mcgowan MD [address] [place] [address] PTCA, CARDIAC ANGIOPLASTY, PERCUTANEOUS, 1 ARTERY 06/09/2024 7:00 AM EDT Office Visit Cardiology [facility] [place] [address] [place] [address] [facility] Cardiac Recovery [facility] [address] [place] [address] 07/07/2024 12:30 PM EST Office Visit Orthopaedics [facility] [address] [place] [address] Ary Rowe MD [address] [place] [address] 09/01/2024 1:40 PM EST Office Visit [facility] [address] [place] [phone] Evi Aldridge MD [address], [place] [address] 04/01/2025 2:40 PM EDT Telemedicine Neurology [address] [place] [address] Eros Marks, DO [address] [facility] [place] [address] Scheduled Procedures [...] Postponed from 03/10/2022 (Patient Declined After Education) HbA1c 11/19/2024 05/22/2024, 12/2023, 05/28/2023, Additional history [...] this encounter Medical Devices Implanted Type Area Parts Expediter Device Identifier Shelf Expiration Date Model / Serial / Lot Stent Protege Gps [id number] - [id number] Implanted:Qty : 1 on 09/29/2020 by Carmelo Ramos MD at OR [facility] Left: Chest [employer] : VASCULAR [id number] 09/20/2022 [id number] / / [id number] Stent Viab [id number] - [id number] Implanted:Qty : 1 on 04/16/2023 by Carmelo Ramos MD at OR [facility] Right: Subclavian [employer] [id number] 01/26/2026 [id number] / [id number] / [id number] documented as of this encounter Advance Directives [...] Advance Directives occurred with: Patient Care Teams Deckhand Clam Dredge Relationship Specialty Start Date End Date Evi Aldridge MD [address] [facility] [address] PCP - General Family Medicine 10/21/18 documented as of this encounter
--- OUTSIDE RECORDS SUMMARY | 2024-06-29 05:20 | External Medical Summary | Summary of Care ---
Author Name Unknown Organization [facility] Address [address] [place] [address] Phone [phone] Care Team Providers Care Range Mounter Name Role Phone Adolph Aldridge MD Primary Care Provider [phone] Encounter Details Date Type Department Care Team (Late st Contact Info) Description 05/25/2024 Population Health External Data Unspecified Department Allergies Active Allergy Reactions Criticality Noted Date Comments Amoxicillin Low 01/27/2021 Other reaction(s): VOMITING Cefaclor Rash Low 11/23/2011 Cephalosporins Rash Low 05/16/1999 documented as of this encounter (statuses as of 05/25/2024) Medications Medication Sig Dispensed Refills Start Date [...] 24 Tablet 03/14/2022 Active OneTouch Delica Plus [id number] ns:DM type 2 with diabetic peripheral neuropathy [...] NEEDED FOR ANXIETY 02/12/2024 Active Dexcom G7 Dial Screw Assembler Device USE DAILY TO CHECK BLOOD SUGARS [...] as of this encounter (statuses as of 05/25/2024) Active Problems Problem Noted Date Diagnosed Date [...] as of this encounter (statuses as of 05/25/2024) Resolved Problems Problem Noted Date Diagnosed Date Resolved Date Acute blood loss anemia 05/21/202404/27 Hyperkalemia 05/21/2024 05/23/2024 Admission for dialysis 08/30/202305/23 Food insecurity 02/04/2023 08/08/2023 Overview: Per [facility] Protocol Major depressive disorder with [...] and PP sugars <120. Report levels to [facility] department weekly. 10. Advised patient that Glyburide, Metformin, and insulin may be safely used during for the control of blood sugar levels. Alexandra will begin her insulin therapy today. 11. Dietary consult to be done to instruct patient on appropriate nutrition and diet to aid in control of blood sugars. 12. Recommend urine culture each trimester. 13. Recommend [facility] ultrasound for limited anatomy at 12-14 weeks, for full anatomy at 18-20 weeks, and for echocardiography at 22-24 weeks. 14. Start testing with twice weekly NST and weekly MATTHEW beginning at 32 weeks or earlier if any evidence of uncontrolled blood sugars, renal abnormalities, or HTN. 15. Recommend [facility] growth ultrasound every 4 weeks after 24 [...] if early screen is normal. 5. Recommend [facility] ultrasound for anatomy screen at 20 weeks [...] 01/29/20 17 Overview: 03/19/2011 Needs enrolled in [facility] once MA active. Marva RN- Enrolled 03/27/2011 [...] as of this encounter (statuses as of 05/25/2024) Immunizations Name Administration Dates Next Due COVID-19 [...] shopping? (15 years old or older) Yes 01/05/20 24 Cognitive Status Response Date of Assessm ent Because of a physical, menta l, or emotional condition, do you have serious difficulty concentrating, remembering, or making decisions? (5 years old or older) No 08/30/2023 documented as of this encounter Plan of Treatment Upcoming Encounters Date Type Department Care Team (Latest Contact Info) Description 06/09/2024 7:00 AM EDT Hospital Encounter CRS Waiting [facility], Cardiac Recovery Suite Waiting Unit, [address] [place] [phone] Diamond Mcgowan MD [facility] [place] [address] 06/09/2024 7:00 AM EDT - 06/09/2024 8:00 AM EDT Surgery CRS Waiting [facility], Cardiac Recovery Suite Waiting Unit, [address] [place] [phone] Diamond Mcgowan MD [facility] [place] [address] PTCA, CARDIAC ANGIOPLASTY, PERCUTANEOUS, 1 ARTERY 06/09/2024 7:00 AM EDT [facility] [address] [place] [address] [facility] [address] [place] [address] 07/07/2024 12:30 PM EST Office Visit Orthopaedics [facility] [address] [facility] [place] [address] Ary Rowe MD [address] [facility] [place] [address] 09/01/2024 1:40 PM EST Office Visit [place] [address] [place] [address] Adolph Aldridge MD [address] [place] [address] 04/01/2025 2:40 PM EDT Telemedicine Neurology [address] [place] [address] Eros Marks, DO [address] [facility] [facility] [address] [place] [address] Scheduled Procedures Name [...] 05/12/2020, 0 04/2018, 09/25/2013, Additional history exists Influenza Vaccine (FLU shot) (#1) 2024 05/26/2023, 05/26/2020, 05/26/2020, Additional history exists Diabetic Eye Exam 05/28/2024 06/21/2020, , 01/25/2014, Additional history exists Postponed from 06/21/2021 (Patient Declined After Education) Diabetic Foot Exam 05/28/2024 03/10/2021, 0 03/10/2020, 11/08/2017, Additional history exists Postponed from 03/10/2022 (Patient Declined After Education) HbA1c 11/19/2024 05/22/2024, 010 12/2023, 05/28/2023, Additional history exists Depression Monitoring 05/11/2025 05/11/2024 Colonoscopy 2030 05/22/2024, 080 11/2022, 10/01/2017, Additional history exists Pneumococcal Vaccine: Pediatrics (0 to 5 Years) and At-Risk Patients (6 to 64 Years) (4 of 4 - PPSV23 or PCV20) 2050 03/10/2020, 03/26/2017, 12/05/2006 Hepatitis B Vaccine Completed 05/21/1998, 12/18/1997, 11/17/1997 RETIRED - COLONOSCOPY-EVERY 5 YRS AGES 18-100 Discontinued 05/22/2024, 03/29/2023, 10/01/2017, Additional history exists HPV (Gardasil) Vaccine Aged Out No lo nger eligible based on patient's age to complete this topic MENINGOCOCCAL (MENACTRA/MENVEO) Aged Out No longer eligible based on patient's age to complete this topic documented as of this encounter Medical Devices Implanted Type Area Fuel Operator Device Identifier Shelf Expiration Date Model / Serial / Lot Stent Protege Gps [id number] - [id number] Implanted:Qty : 1 on 09/29/2020 by Carmelo Ramos MD at OR [facility] Left: Chest [employer] : VASCULAR [id number] 09/20/2022 [id number] -40-80 / / [id number] Stent Viab [id number] - [id number] Implanted:Qty : 1 on 04/16/2023 by Carmelo Ramos MD at OR [facility] Right: Subclavian [employer] [id number] 01/26/2026 [id number] / [id number] / [id number] documented as of this encounter Advance Directives [...] Advance Directives occurred with: Patient Care Teams Range Mounter Relationship Specialty Start Date End Date Adolph Aldridge MD [address] [place] [address] PCP - General Family Medicine 10/21/18 documented as of this encounter
--- OUTSIDE RECORDS SUMMARY | 2024-06-29 05:20 | External Medical Summary | Summary of Care ---
Author Name Unknown Organization [facility] Address [address] [place] [address] Phone [phone] Care Team Providers Care Guest Services Assistant Name Role Phone Adolph Aldridge MD Primary Care Provider [phone] Reason for Visit * Reason Onset Date Comments Advice 06/04/2024 HD Access Encounter Details Date Type Department Care Team (Late st Contact Info) Description 06/04/2024 Telephone Vascular Surg [facility] [address] [place], [place] [phone] Carmelo Ramos MD [address] [place], [place] [phone] Advice (HD Access) Allergies Active Allergy Reactions [...] Tablet 03/14/20 22 Active OneTouch Delica Plus [id number] ons:DM type 2 with diabetic peripheral neuropathy [...] A1c goal of less than 7.0% ([facility]) Use to check sugars continuously. E 11.9 change every 10 days 3 Each 11 01/06/20 24 Active hydrOXYzine HCl 25 MG Oral Tablet TAKE 1 TABLET BY MOUTH EVERY 6 HOURS NEEDED FOR ANXIETY 02/12/20 24 Active Dexcom G7 Call Center Rn Device USE DAILY TO CHECK BLOOD SUGARS [...] and PP sugars <120. Report levels to [facility] department weekly. 10. Advised patient that Glyburide, Metformin, and insulin may be safely used during for the control of blood sugar levels. Alexandra will begin her insulin therapy today. 11. Dietary consult to be done to instruct patient on appropriate nutrition and diet to aid in control of blood sugars. 12. Recommend urine culture each trimester. 13. Recommend [facility] ultrasound for limited anatomy at 12-14 weeks, for full anatomy at 18-20 weeks, and for echocardiography at 22-24 weeks. 14. Start testing with twice weekly NST and weekly MATTHEW beginning at 32 weeks or earlier if any evidence of uncontrolled blood sugars, renal abnormalities, or HTN. 15. Recommend [facility] growth ultrasound every 4 weeks [...] if early screen is normal. 5. Recommend [facility] ultrasound for anatomy screen at [...] Marva CURRIE, contaminated patient to repepat [facility] 03/19/2011 01/29/20 17 Overview: 03/19/2011 Needs enrolled [...] encounter Miscellaneous Notes * Telephone Encounter - Shamir Espinoza CRNP - 06/08/2024 9:29 AM EDT Please go ahead and working on scheduling a fistulagram. ANGÉLICA Harrell 06/08/2024 9:30 AM * Telephone Encounter - Suresh Varma OSA - 06/08/2024 9:20 AM EDT Spoke to Ary from [facility], she said from a dialysis standpoint she [...] cath procedure. Message sent to Caro at [facility] * Telephone Encounter - Anthony Beckett PA-C [...] PM EDT Received message from Caro at [facility], please advise if this would be a [...] to call us! Thank you ?? Caro Ricks [facility] [address] [place] [address] [phone] documented in this encounter Plan of Treatment Upcoming Encounters Date Type Department Care Team (Latest Contact Info) Description 06/09/2024 7:00 AM EDT Hospital Encounter CRS Waiting [facility], Cardiac Recovery Suite Waiting Unit, [address] [place] [phone] Diamond Mcgowan MD [address] [place], [place] [phone] 06/09/2024 7:00 AM EDT - 06/09/2024 8:00 AM EDT Surgery CRS Waiting [facility], Cardiac Recovery Suite Waiting Unit, [address] [place] [address] Diamond Mcgowan MD [address] [place] [address] PTCA, CARDIAC ANGIOPLASTY, PERCUTANEOUS, 1 ARTERY 06/09/2024 7:00 AM EDT [facility] [address], [place] [phone] [facility] Cardiac [facility] [address] [place] [address] 07/07/2024 12:30 PM EST Office Visit Orthopaedics [facility] [address] [facility] [place] [address] Ary Rowe MD [address] [place] [address] 09/01/2024 1:40 PM EST Office Visit [facility] [address] [place] [address] Adolph Aldridge MD [address] [place] [address] 04/01/2025 2:40 PM EDT Telemedicine Neurology [address] [place] [address] Eros Marks, DO [address] [facility] [place] [address] Scheduled Procedures Name [...] Cancer Screening 05/12/2023 Pap Smear 05/12/2023 05/12/2020, 01/0 04/2018, 09/25/2013, Additional history exists Influenza Vaccine (FLU shot) (#1) 2024 05/26/2023, 05/26/2020, 05/26/2020, Additional history exists HbA1c 11/19/2024 05/22/2024, 01/0 12/2023, 05/28/2023, Additional history exists Depression Monitoring [...] this encounter Medical Devices Implanted Type Area Acquisition Marketing Manager Device Identifier Shelf Expiration Date Model / Serial / Lot Stent Protege Gps [id number] - [id number] Implanted:Qty : 1 on 09/29/2020 by Carmelo Ramos MD at OR [facility] Left: Chest [employer] : VASCULAR [id number] 09/20/2022 [id number] -40-80 / / [id number] Stent Viab [id number] - [id number] Implanted:Qty : 1 on 04/16/2023 by Carmelo Ramos MD at OR [facility] Right: Subclavian [employer] [id number] 01/26/2026 [id number] / [id number] / [id number] documented as of this encounter Advance Directives [...] Advance Directives occurred with: Patient Care Teams Guest Services Assistant Relationship Specialty Start Date End Date Adolph Aldridge MD [address] [place] [facility] [place] [address] PCP - General Family Medicine 10/21/18 documented as of this encounter
--- OUTSIDE RECORDS SUMMARY | 2024-06-29 05:20 | External Medical Summary | Summary of Care ---
Author Name Unknown Organization [facility] Address [address] [place] [address] Phone [phone] Care Team Providers Care Manager Plant Name Role Phone Adolph Aldridge MD Primary Care Provider [phone] Reason for Visit * Reason Onset Date Comments Advice 06/04/2024 HD Access Encounter Details Date Type Department Care Team (Late st Contact Info) Description 06/04/2024 Telephone Vascular Surg [facility] [address] [place], [place] [phone] Carmelo Ramos MD [address] [place], [place] [phone] Advice (HD Access) Allergies Active Allergy Reactions Criticality Noted Date Comments Amoxicillin Low 01/27/2021 Other reaction(s): VOMITING Cefaclor Rash Low 11/23/2011 Cephalosporins Rash Low 05/16/1999 documented as of this encounter (statuses as of 06/04/2024) Medications Medication Sig Dispensed Refills Start Date [...] 24 Tablet 03/14/2022 Active OneTouch Delica Plus [id number] ns:DM type 2 with diabetic peripheral neuropathy [...] A1c goal of less than 7.0% ([facility]) Use to check sugars continuously. E 11.9 change every 10 days 3 Each 11 01/06/2024 Active hydrOXYzine HCl 25 MG Oral Tablet TAKE 1 TABLET BY MOUTH EVERY 6 HOURS NEEDED FOR ANXIETY 02/12/2024 Active Dexcom G7 Ring Sewer Device USE DAILY TO CHECK BLOOD SUGARS [...] as of this encounter (statuses as of 06/04/2024) Active Problems Problem Noted Date Diagnosed Date [...] as of this encounter (statuses as of 06/04/2024) Resolved Problems Problem Noted Date Diagnosed Date [...] and PP sugars <120. Report levels to [facility] department weekly. 10. Advised patient that Glyburide, Metformin, and insulin may be safely used during for the control of blood sugar levels. Alexandra will begin her insulin therapy today. 11. Dietary consult to be done to instruct patient on appropriate nutrition and diet to aid in control of blood sugars. 12. Recommend urine culture each trimester. 13. Recommend [facility] ultrasound for limited anatomy at 12-14 weeks, for full anatomy at 18-20 weeks, and for echocardiography at 22-24 weeks. 14. Start testing with twice weekly NST and weekly MATTHEW beginning at 32 weeks or earlier if any evidence of uncontrolled blood sugars, renal abnormalities, or HTN. 15. Recommend [facility] growth ultrasound every 4 weeks after [...] if early screen is normal. 5. Recommend [facility] ultrasound for anatomy screen at 20 [...] CURRIE, contaminated patient to repepat [facility] 03/19/2011 01/29/20 17 Overview: 03/19/2011 Needs [...] as of this encounter (statuses as of 06/04/2024) Immunizations Name Administration Dates Next Due COVID-19 [...] PM EDT Received message from Caro at [facility], please advise if this would be [...] call us! Thank you ?? Caro Ricks, [facility] [place] [facility] [address] [place], [place] [address] [phone] documented in this encounter Plan of Treatment Upcoming Encounters Date Type Department Care Team (Latest Contact Info) Description 06/09/2024 7:00 AM EDT Hospital Encounter CRS Waiting [facility], Cardiac Recovery Suite Waiting Unit, [address] [place] [address] Diamond Mcgowan MD [address] [place] [address] 06/09/2024 7:00 AM EDT - 06/09/2024 8:00 AM EDT Surgery CRS Waiting [facility], Cardiac Recovery Suite Waiting Unit, [address] [place] [address] Diamond Mcgowan MD [address] [place] [address] PTCA, CARDIAC ANGIOPLASTY, PERCUTANEOUS, 1 ARTERY 06/09/2024 7:00 AM EDT Office Visit [facility]iology [facility] [address] [place] [address] [facility] Cardiac [facility] [address] [place] [address] 07/07/2024 12:30 PM EST Office Visit Orthopaedics [facility] [address] [place] [address] Ary Rowe MD [address] [place] [address] 09/01/2024 1:40 PM EST Office Visit [address] [place] [address] Adolph Aldridge MD [address] [place] [address] 04/01/2025 2:40 PM EDT Telemedicine Neurology [address] [place] [address] Eros Marks, DO [address] [place] [...] this encounter Medical Devices Implanted Type Area Steel Molder Device Identifier Shelf Expiration Date Model / Serial / Lot Stent Protege Gps [id number] - [id number] Implanted:Qty : 1 on 09/29/2020 by Carmelo Ramos MD at OR [facility] Left: Chest [employer] : VASCULAR [id number] 09/20/2022 [id number] -40-80 / / [id number] Stent Viab [id number] - [id number] Implanted:Qty : 1 on 04/16/2023 by Carmelo Ramos MD at OR [facility] Right: Subclavian [employer] [id number] 01/26/2026 [id number] / [id number] / [id number] documented as of this encounter Advance Directives [...] Advance Directives occurred with: Patient Care Teams Manager Plant Relationship Specialty Start Date End Date Adolph Aldridge MD [address] [place] [address] PCP - General Family Medicine 10/21/18 documented as of this encounter
--- OUTSIDE RECORDS SUMMARY | 2024-06-29 05:20 | External Medical Summary | Summary of Care ---
Author Name Unknown Organization [facility] Address [address] [place] [address] Phone [phone] Care Team Providers Care Assembly Lead Person Name Role Phone Adolph Aldridge MD Primary Care Provider [phone] Reason for Visit * Reason Onset Date Comments Advice 06/04/2024 HD Access Encounter Details Date Type Department Care Team (Late st Contact Info) Description 06/04/2024 Telephone Vascular Surg [facility] [address] [place], [place] [phone] Carmelo Ramos MD [address] [place], [place] [phone] Advice (HD Access) Allergies Active Allergy Reactions Criticality Noted Date Comments Amoxicillin Low 01/27/2021 Other reaction(s): VOMITING Cefaclor Rash Low 11/23/2011 Cephalosporins Rash Low 05/16/1999 documented as of this encounter (statuses as of 06/05/2024) Medications Medication Sig Dispensed Refills Start Date [...] 24 Tablet 03/14/2022 Active OneTouch Delica Plus Agbezu25MJhhaszkxv ns:DM type 2 with diabetic peripheral neuropathy [...] hemoglobin A1c goal of less than 7.0% ([facility]) Use to check sugars continuously. E 11.9 change every 10 days 3 Each 11 01/06/2024 Active hydrOXYzine HCl 25 MG Oral Tablet TAKE 1 TABLET BY MOUTH EVERY 6 HOURS NEEDED FOR ANXIETY 02/12/2024 Active Dexcom G7 Nuclear Fuel Enrichment Technician Device USE DAILY TO CHECK BLOOD SUGARS [...] as of this encounter (statuses as of 06/05/2024) Active Problems Problem Noted Date Diagnosed Date [...] as of this encounter (statuses as of 06/05/2024) Resolved Problems Problem Noted Date Diagnosed Date [...] and PP sugars <120. Report levels to [facility] department weekly. 10. Advised patient that Glyburide, Metformin, and insulin may be safely used during for the control of blood sugar levels. Alexandra will begin her insulin therapy today. 11. Dietary consult to be done to instruct patient on appropriate nutrition and diet to aid in control of blood sugars. 12. Recommend urine culture each trimester. 13. Recommend [facility] ultrasound for limited anatomy at 12-14 weeks, for full anatomy at 18-20 weeks, and for echocardiography at 22-24 weeks. 14. Start testing with twice weekly NST and weekly MATTHEW beginning at 32 weeks or earlier if any evidence of uncontrolled blood sugars, renal abnormalities, or HTN. 15. Recommend [facility] growth ultrasound every 4 weeks [...] if early screen is normal. 5. Recommend [facility] ultrasound for anatomy screen at [...] CURRIE, contaminated patient to repepat [facility] 03/19/2011 01/29/20 17 Overview: 03/19/2011 Needs [...] as of this encounter (statuses as of 06/05/2024) Immunizations Name Administration Dates Next Due COVID-19 [...] cath procedure. Message sent to Caro at [facility] * Telephone Encounter - Anthony Beckett [...] PM EDT Received message from Caro at [facility], please advise if this would be [...] call us! Thank you ?? Caro Ricks, [facility] [address] [place] [address] [phone] documented in this encounter Plan of Treatment Upcoming Encounters Date Type Department Care Team (Latest Contact Info) Description 06/09/2024 7:00 AM EDT Hospital Encounter CRS Waiting [facility], Cardiac Recovery Suite Waiting Unit, H [address] [place] [address] Diamond Mcgowan MD [address] [place] [address] 06/09/2024 7:00 AM EDT - 06/09/2024 8:00 AM EDT Surgery CRS Waiting [facility], Cardiac Recovery Suite Waiting Unit, H [address] [place] [address] Diamond Mcgowan MD [address] [place] [address] PTCA, CARDIAC ANGIOPLASTY, PERCUTANEOUS, 1 ARTERY 06/09/2024 7:00 AM EDT [facility] [address] [place] [address] [place], Cardiac Recovery [facility] [address] [place] [facility] [place] [address] 07/07/2024 12:30 PM EST Office Visit Orthopaedics [facility] [address] [facility] [place] [address] Ary Rowe MD [address] [place] [address] 09/01/2024 1:40 PM EST Office Visit [facility] [address] [place] [address] Adolph Aldridge MD [address] [place] [address] 04/01/2025 2:40 PM EDT Telemedicine Neurology [address] [place] [address] Eros Marks, DO [address] [facility], [place] [phone] Scheduled Procedures Name Priority Associated Diagnoses Date/Ti [...] this encounter Medical Devices Implanted Type Area Contracts Analyst Device Identifier Shelf Expiration Date Model / Serial / Lot Stent Protege Gps [id number] - [id number] Implanted:Qty : 1 on 09/29/2020 by Carmelo Ramos MD at [facility] Left: Chest [employer] : VASCULAR [id number] 09/20/2022 [id number] -40-80 / / [id number] Stent Viab [id number] - [id number] Implanted:Qty : 1 on 04/16/2023 by Carmelo Ramos MD at [facility] Right: Subclavian [employer] [facility] [id number] 01/26/2026 [id number] / [id number] / [id number] documented as of this encounter Advance Directives [...] Advance Directives occurred with: Patient Care Teams Assembly Lead Person Relationship Specialty Start Date End Date Adolph Aldridge MD [address] [facility] [place] [address] PCP - General Family Medicine 10/21/18 documented as of this encounter
--- OUTSIDE RECORDS SUMMARY | 2024-06-29 05:20 | External Medical Summary | Summary of Care ---
Author Name Unknown Organization [facility] Address [address] [place] [address] Phone [phone] Care Team Providers Care Radiology Supervisor Name Role Phone Evi Aldridge MD Primary Care Provider [phone] Reason for Visit * Reason Comments eRx-Medication Refill Encounter Details Date Type Department Care Team (Late st Contact Info) Description 06/04/2024 Refill [facility] [address] [place] [address] Evi Aldridge MD [address] [place] [address] Tobacco use Allergies Active Allergy Reactions Criticality Noted Date [...] Tablet 03/14/20 22 Active OneTouch Delica Plus [id number] ons:DM type 2 with diabetic peripheral neuropathy [...] than 7.0% ([facility]) Use to check sugars continuously. E 11.9 change every 10 days 3 Each 11 01/06/20 24 Active hydrOXYzine HCl 25 MG Oral Tablet TAKE 1 TABLET BY MOUTH EVERY 6 HOURS NEEDED FOR ANXIETY 02/12/20 24 Active Dexcom G7 Psychiatry Resident Device USE DAILY TO CHECK BLOOD SUGARS [...] daily 60 Tablet 2 06/05/20 24 Active Varenicline Tartrate 1 MG Oral [...] and PP sugars <120. Report levels to [facility] department weekly. 10. Advised patient that Glyburide, Metformin, and insulin may be safely used during for the control of blood sugar levels. Alexandra will begin her insulin therapy today. 11. Dietary consult to be done to instruct patient on appropriate nutrition and diet to aid in control of blood sugars. 12. Recommend urine culture each trimester. 13. Recommend [facility] ultrasound for limited anatomy at 12-14 [...] RN, contaminated patient to repepat OB [facility] 03/19/2011 01/29/20 17 Overview: 03/19/2011 Needs enrolled in [facility] once MA active. Marva RN- Enrolled [...] Repeat at term. Requests PPTL. scheduled for 3.12.12 tubal consent signed 08/31/2011 Marva CURRIE Severe [...] encounter Miscellaneous Notes * Telephone Encounter - aLura Orellana RPh - 06/05/2024 10:56 AM EDTSigned Prescriptions: Disp Refills Varenicline Tartrate 1 MG Oral Tablet (Jerilyn*60 Tab*2 Sig: Take 1 tablet by mouth twice dailyAuthorizing Provider: EVI ALDRIDGE User: LAURA ORELLANA------ documented in this encounter Plan of Treatment Upcoming Encounters Date Type Department Care Team (Latest Contact Info) Description 06/09/2024 7:00 AM EDT Hospital Encounter CRS Waiting [facility], Cardiac Recovery Suite Waiting Unit, [address] [place] [address] Diamond Mcgowan MD [address] [place] [address] 06/09/2024 7:00 AM EDT - 06/09/2024 8:00 AM EDT Surgery CRS Waiting [facility], Cardiac Recovery Suite Waiting Unit, [address] [place] [address] Diamond Mcgowan MD [address] [place], [place] [phone] PTCA, CARDIAC ANGIOPLASTY, PERCUTANEOUS, 1 ARTERY 06/09/2024 7:00 AM EDT Office Visit Cardiology [facility] [place] [address] [place] [address] [place], Cardiac Recovery [facility] [address] [place] [address] 07/07/2024 12:30 PM EST Office Visit Orthopaedics [facility] [address] [facility] [place] [id number] Ary Rowe MD [address] [facility] [place] [id number] 09/01/2024 1:40 PM EST Office Visit [facility] [address] [place] [address] Evi Aldridge MD [address] [place] [address] 04/01/2025 2:40 PM EDT Telemedicine Neurology [address] [place] [address] Eros Marks DO [address], [place] [phone] Scheduled Procedures Name Priority Associated Diagnoses Date/Ti [...] this encounter Medical Devices Implanted Type Area Furnace Worker Device Identifier Shelf Expiration Date Model / Serial / Lot Stent Protege Gps [id number] - [id number] Implanted:Qty : 1 on 09/29/2020 by Carmelo Ramos MD at OR [facility] Left: Chest [employer] : VASCULAR [id number] 09/20/2022 [id number] -40-80 / / [id number] Stent Viab [id number] - [id number] Implanted:Qty : 1 on 04/16/2023 by Carmelo Ramos MD at OR [facility] Right: Subclavian [employer] [id number] 01/26/2026 [id number] / [id number] / [id number] documented as of this encounter Visit Diagnoses Diagnosis Tobacco use Tobacco use disorder Chronic total occlusion of coronary artery Coronary atherosclerosis of unspecified type of vessel, alturas or graft documented in this encounter Advance Directives * [...] Advance Directives occurred with: Patient Care Teams Radiology Supervisor Relationship Specialty Start Date End Date Evi Aldridge MD [address] [place] [address] PCP - General Family Medicine 10/21/18 documented as of this encounter
--- OUTSIDE RECORDS SUMMARY | 2024-06-29 05:20 | External Medical Summary | Summary of Care ---
Author Name Unknown Organization [facility] Address [address] [place] [address] Phone [phone] Care Team Providers Care Healthcare Manager Name Role Phone Adolph Aldridge MD Primary Care Provider Reason for Visit * Reason Onset Date Comments Advice 06/04/2024 HD Access Encounter Details Date Type Department Care Team (Late st Contact Info) Description 06/04/2024 Telephone Vascular Surg [facility] [address], [place] [phone] Carmelo Ramos MD [address] [place], [place] [phone] Advice (HD Access) Allergies Active Allergy Reactions [...] Tablet 03/14/20 22 Active OneTouch Delica Plus [id number] ons:DM type 2 with diabetic peripheral neuropathy [...] FOR ANXIETY 02/12/20 24 Active Dexcom G7 Sql Developer Device USE DAILY TO CHECK BLOOD SUGARS [...] renal abnormalities, or HTN. 15. Recommend [facility] growth ultrasound every 4 weeks after 24 [...] early screen is normal. 5. Recommend [facility] ultrasound for anatomy screen at 20 weeks [...] Marva CURRIE, contaminated patient to repepat OB [facility] 03/19/2011 01/29/20 17 Overview: 03/19/2011 Needs [...] 9:20 AM EDT Spoke to Ary from [facility], she said from a dialysis standpoint [...] cath procedure. Message sent to Caro at [facility] * Telephone Encounter - Anthony Beckett PA-C [...] PM EDT Received message from Caro at [facility], please advise if this would be a [...] call us! Thank you ?? Caro Ricks, [facility] [address] [place] [address] [phone] documented in this encounter Plan of Treatment Upcoming Encounters Date Type Department Care Team (Latest Contact Info) Description 06/09/2024 7:00 AM EDT Hospital Encounter CRS Waiting [facility], Cardiac Recovery Suite Waiting Unit, [address] [facility] [place] [address] Diamond Mcgowan MD [address], [place] [phone] 06/09/2024 7:00 AM EDT - 06/09/2024 8:00 AM EDT Surgery CRS [place]ing [facility], Cardiac Recovery Suite Waiting Unit, [address] [facility] [place] [address] Diamond Mcgowan MD [address] [place] [address] PTCA, CARDIAC ANGIOPLASTY, PERCUTANEOUS, 1 ARTERY 06/09/2024 7:00 AM EDT Office Visit Cardiology [facility] [address] [place] [address] [facility] Cardiac [facility] [address] [place] [address] 07/07/2024 12:30 PM EST Office Visit Orthopaedics [facility] [address] [facility] [place] [address] Ary Rowe MD [address] [facility] [place] [address] 09/01/2024 1:40 PM EST Office Visit [facility] [address] [place] [address] Adolph Aldridge MD [address] [place] [address] 04/01/2025 2:40 PM EDT Telemedicine Neurology [address] [place] [address] Eros Marks DO [address] [facility] [place] [address] Scheduled Procedures Name Priority Associated Diagnoses [...] this encounter Medical Devices Implanted Type Area Machine Set Up Device Identifier Shelf Expiration Date Model / Serial / Lot Stent Protege Gps [id number] - [id number] Implanted:Qty : 1 on 09/29/2020 by Carmelo Ramos MD at [place] [facility] Left: Chest [employer] : VASCULAR [id number] 09/20/2022 [id number] -40-80 / / [id number] Stent Viab [id number] - [id number] Implanted:Qty : 1 on 04/16/2023 by Carmelo Ramos MD at [place] [facility] Right: Subclavian [employer] [id number] 01/26/2026 [id number] / [id number] / [id number] documented as of this encounter Advance Directives [...] Advance Directives occurred with: Patient Care Teams Healthcare Manager Relationship Specialty Start Date End Date Adolph Aldridge MD [address] [place] [address] PCP - General Family Medicine 10/21/18 documented as of this encounter
--- OUTSIDE RECORDS SUMMARY | 2024-06-29 05:20 | External Medical Summary | Summary of Care ---
Author Name Unknown Organization [facility] Address [address] [place] [address] Phone [phone] Care Team Providers Care Prison Officer Name Role Phone Adolph Aldridge MD Primary Care Provider [phone] Reason for Visit * Reason Onset Date Comments Appointment 05/27/2024 Encounter Details Date Type Department Care Team (Late st Contact Info) Description 05/27/2024 Powder Expert Telephone Care Coordination and Integration [address] [place], [place] [phone] Kaitlyn Sandoval, ROSEY [address] [place], [place] [phone] Appointment Allergies Active Allergy Reactions Criticality Noted Date Comments Amoxicillin Low 01/27/2021 Other reaction(s): VOMITING Cefaclor Rash Low 11/23/2011 Cephalosporins Rash Low 05/16/1999 documented as of this encounter (statuses as of 05/27/2024) Medications Medication Sig Dispensed Refills Start Date [...] 24 Tablet 03/14/2022 Active OneTouch Delica Plus Ntpqml29LOdkymxyml ns:DM type 2 with diabetic peripheral neuropathy [...] hemoglobin A1c goal of less than 7.0% ([facility]) Use to check sugars continuously. E 11.9 change every 10 days 3 Each 11 01/06/2024 Active hydrOXYzine HCl 25 MG Oral Tablet TAKE 1 TABLET BY MOUTH EVERY 6 HOURS NEEDED FOR ANXIETY 02/12/2024 Active Dexcom G7 High School Mathematics Teacher Device USE DAILY TO CHECK BLOOD SUGARS [...] as of this encounter (statuses as of 05/27/2024) Active Problems Problem Noted Date Diagnosed Date [...] as of this encounter (statuses as of 05/27/2024) Resolved Problems Problem Noted Date Diagnosed Date [...] PP sugars <120. Report levels to [facility] department weekly. 10. Advised patient that Glyburide, Metformin, and insulin may be safely used during for the control of blood sugar levels. Alexandra will begin her insulin therapy today. 11. Dietary consult to be done to instruct patient on appropriate nutrition and diet to aid in control of blood sugars. 12. Recommend urine culture each trimester. 13. Recommend [facility] ultrasound for limited anatomy at 12-14 weeks, for full anatomy at 18-20 weeks, and for echocardiography at 22-24 weeks. 14. Start testing with twice weekly NST and weekly MATTHEW beginning at 32 weeks or earlier if any evidence of uncontrolled blood sugars, renal abnormalities, or HTN. 15. Recommend [facility] growth ultrasound every 4 weeks after 24 [...] 01/29/20 17 Overview: 03/19/2011 Needs enrolled in [facility] once MA active. Marva RN- Enrolled 03/27/2011 [...] as of this encounter (statuses as of 05/27/2024) Immunizations Name Administration Dates Next Due COVID-19 [...] Telephone Encounter - Natalie Bruce OSA - 05/27/2024 2:23 PM EDT LMOM for patient to call to schedule HD appt for the week of 06/01/2024 * Telephone Encounter - Kaitlyn Sandoval RN - 05/27/2024 9:17 AM EDT Patient was discharged from [facility] on 05/[facility]24 and is in need of a one week hospital discharge followup appointment. Please contact patient to schedule a hospital discharge follow up appointment. Thanks, Kaitlyn Sandoval RN, BSN Float Powder Expert [phone] documented in this encounter Plan of Treatment Upcoming Encounters Date Type Department Care Team (Latest Contact Info) Description 06/09/2024 7:00 AM EDT Hospital Encounter CRS Waiting [facility], Cardiac Recovery Suite Waiting Unit, [address] [place] [address] Diamond Mcgowan MD [address] [facility] [place] [address] 06/09/2024 7:00 AM EDT - 06/09/2024 8:00 AM EDT Surgery CRS Waiting [facility], Cardiac Recovery Suite Waiting Unit, H [address] [facility] [place] [address] Diamond Mcgowan MD [address] [place] [address] PTCA, CARDIAC ANGIOPLASTY, PERCUTANEOUS, 1 ARTERY 06/09/2024 7:00 AM EDT Office Visit Cardiology [facility] [place] [address] [place] [address] [place], Cardiac Recovery [facility] [address] [facility], [place] [address] 07/07/2024 12:30 PM EST Office Visit [facility]opaedics [facility] [place] [address] Ary Rowe MD [address] [facility] [place] [address] 09/01/2024 1:40 PM EST Office Visit [facility] [address] [place] [address] Adolph Aldridge MD [address] [place] [address] 04/01/2025 2:40 PM EDT Telemedicine Neurology [address] [place] [address] Eros Marks DO [address] [facility], [place] [phone] Scheduled Procedures Name Priority Associated Diagnoses Date/Ti [...] 05/12/2020, 010 04/2018, 09/25/2013, Additional history exists Influenza Vaccine [...] this encounter Medical Devices Implanted Type Area Induction Coordination Power Engineer Device Identifier Shelf Expiration Date Model / Serial / Lot Stent Protege Gps [id number] - [id number] Implanted:Qty : 1 on 09/29/2020 by Carmelo Ramos MD at [facility] Left: Chest [employer] : VASCULAR [id number] 09/20/2022 [id number] -40-80 / / [id number] Formerly [facility] Via [id number] - [id number] Implanted:Qty : 1 on 04/16/2023 by Carmelo Ramos MD at [facility] Right: Subclavian [employer] [id number] 01/26/2026 [id number] / [id number] / [id number] documented as of this encounter Advance Directives [...] Advance Directives occurred with: Patient Care Teams Prison Officer Relationship Specialty Start Date End Date Adolph Aldridge MD [address] [place] [address] PCP - General Family Medicine 10/21/18 documented as of this encounter
--- OUTSIDE RECORDS SUMMARY | 2024-06-29 05:21 | External Medical Summary | Summary of Care ---
Author Name Unknown Organization [facility] Address [address] [place] [address] Phone [phone] Care Team Providers Care Contract Serviceman Name Role Phone Adolph Aldridge MD Primary Care Provider [phone] Encounter Details Date Type Department Care Team (Latest Contact Info) Description 05/15/2024 11:00 AM EDT - 05/15/2024 11:59 PM EDT Hospital Encounter Radiology [facility] [address] [place] [address] Discharge Disposition: Home - Self Care Allergies Active Allergy Reactions Criticality Noted Date Comments Amoxicillin Low 01/27/2021 Other reaction(s): VOMITING Cefaclor Rash Low 11/23/2011 Cephalosporins Rash Low 05/16/1999 documented as of this encounter (statuses as of 05/22/2024) Medications Medication Sig Dispensed Refills Start Date [...] 1 Each 1 1 Suspended Additional Information Albuterol Sulfate (2.5 MG/3ML) 0.083% Inhalation Nebulization Solution (Proventil)Indicat ions:Mild intermittent asthma with exacerbation Inhale 1 Vial via nebulizer every 4 hours as needed for Wheezing. 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 39 g 3 2 Suspended Additional Information Patient not taking.Informant: Patient, Reported on 05/20/2024 Ondansetron HCl 4 MG Oral TabletIndications: Nausea without vomiting Take by mouth 1 Tablet every 6 hours as needed for Nausea. 24 Tablet 2 Suspended Additional Information OneTouch Delica Plus Ddujzm35IXcxzlibvl ns:DM type 2 with diabetic peripheral neuropathy [...] 18 g 6 4 Suspended Additional Information buPROPion HCl ER (XL) 150 MG Oral Tablet Extended Release 24 Hour (Wellbutrin XL)Indications:Dep ression with anxiety Take 1 Tablet by mouth in the morning. Increase to 1 tab twice daily after 2 weeks. 60 Tablet 5 4 Suspended Additional Information Patient taking differently:150 mg Oral Daily(AM),Pt only taking 1 per day., Informant: Patient, Reported on 02/06/2024 Dexcom G7 SensorIndications: Type 2 diabetes mellitus with hemoglobin A1c goal of less than 7.0% ([facility]) Use to check sugars continuously. E 11.9 change every 10 days 3 Each 4 Suspended Additional Information hydrOXYzine HCl 25 MG Oral Tablet TAKE 1 TABLET BY MOUTH EVERY 6 HOURS NEEDED FOR ANXIETY 4 Suspended Dexcom G7 Printing Gray Cloth Tender Device USE DAILY TO CHECK BLOOD SUGARS CONTINUOUSLY (DX CODE E11.9) 4 Suspended Varenicline Tartrate 1 MG Oral TabletIndications: Tobacco use Take 1 Tablet by mouth in the morning and 1 Tablet before bedtime. As directed on box.. 60 Tablet 3 4 Suspended Additional Information medroxyPROGESTERon e Acetate 150 MG/ML Intramuscular Suspension [...] morning and 2 Capsules before bedtime. Suspended documented as of this encounter (statuses as of 05/22/2024) Active Problems Problem Noted Date Diagnosed Date S/P primary angioplasty with coronary stent 04/27 Acute blood loss anemia 05/21/2024 Bleeding hemorrhoids 05/21/2024 CAD (coronary artery disease) 05/21/2024 HFrEF (heart failure with reduced ejection fract ion) 05/21/2024 Hyperkalemia 05/21/2024 Food insecurity 03/02/2024 Overview: Per [facility] [...] as of this encounter (statuses as of 05/22/2024) Resolved Problems Problem Noted Date Diagnosed Date Resolved Date Food insecurity 02/04/2023 08/08/2023 Overview: Per [facility] Protocol Major depressive disorder with single [...] and PP sugars <120. Report levels to [facility] department weekly. 10. Advised patient that Glyburide, Metformin, and insulin may be safely used during for the control of blood sugar levels. Alexandra will begin her insulin therapy today. 11. Dietary consult to be done to instruct patient on appropriate nutrition and diet to aid in control of blood sugars. 12. Recommend urine culture each trimester. 13. Recommend [facility] ultrasound for limited anatomy at 12-14 weeks, for full anatomy at 18-20 weeks, and for echocardiography at 22-24 weeks. 14. Start testing with twice weekly NST and weekly MATTHEW beginning at 32 weeks or earlier if any evidence of uncontrolled blood sugars, renal abnormalities, or HTN. 15. Recommend [facility] growth ultrasound every 4 weeks after 24 [...] 01/29/20 17 Overview: 03/19/2011 Needs enrolled in [facility] once MA active. Marva RN- Enrolled 03/27/2011 [...] Repeat at term. Requests PPTL. scheduled for 3 tubal consent signed 08/31/2011 Marva CURRIE Severe [...] as of this encounter (statuses as of 05/22/2024) Immunizations Name Administration Dates Next Due COVID-19 [...] 7:00 AM EDT Hospital Encounter CRS Waiting [facility], Cardiac Recovery Suite Waiting Unit, [address] [place] [address] Diamond Mcgowan MD [address] [place] [address] 06/09/2024 7:00 AM EDT - 06/09/2024 8:00 AM EDT Surgery CRS Waiting [facility], Cardiac Recovery Suite Waiting Unit, [address] [place] [facility] [address] Diamond Mcgowan MD [address] [place], [place] [address] PTCA, CARDIAC ANGIOPLASTY, PERCUTANEOUS, 1 ARTERY 06/09/2024 7:00 AM EDT Office Visit Cardiology [facility] [address] [place] [address] [facility] Cardiac Recovery [facility] [address] [place] [address] 07/07/2024 12:30 PM EST Office Visit Orthopaedics [facility] [place] [address] Ary Rowe MD [address] [facility] [place] [address] 09/01/2024 1:40 PM EST Office [facility] [address] [place] [address] Adolph Aldridge MD [address] [place] [address] 04/01/2025 2:40 PM EDT Telemedicine Neurology [address] [place] [address] Eros Marks DO [address] [place] [address] Scheduled Procedures Name Priority Associated Diagnoses Date/Ti me COLONOSCOPY FLEXIBLE PROXIMAL DIAGNOSTIC BRBPR (bright red blood per rectum) 05/22/2024 1:03 PM EDT PTCA, CARDIAC ANGIOPLASTY, PERCUTANEOUS, 1 ARTERY Chronic [...] exists Depression Monitoring 05/11/2025 05/11/2024 Colonoscopy 2030 03/29/2023, 020 01/2018, 10/01/2017 Pneumococcal Vaccine: Pediatrics (0 to [...] this encounter Medical Devices Implanted Type Area Hr Shared Services Consultant Device Identifier Shelf Expiration Date Model / Serial / Lot Stent Protege Gps [id number] - [id number] Implanted:Qty : 1 on 09/29/2020 by Carmelo Ramos MD at OR [facility] Left: Chest [employer] : VASCULAR [id number] 09/20/2022 [id number] -40-80 / / [id number] Stent Viab [id number] - [id number] Implanted:Qty : 1 on 04/16/2023 by Carmelo Ramos MD at OR [facility] Right: Subclavian [employer] [id number] 01/26/2026 [id number] / [id number] / [id number] documented as of this encounter Procedures Procedure Name Priority Date/Time Associated Diagnosis Comments RADIOLOGY EXAM - GENERAL RAD (IMAGES ONLY,NO REPORT) Routine 05/15/2024 11:00 AM EDT documented in this encounter Results * RADIOLOGY EXAM - GENERAL RAD (IMAGES ONLY,NO REPORT) (05/15/2024 11:00 AM EDT) 05/15/2024 10:5 7 AM EDT Narrative Scheduling, Silent - 05/21/2024 11:26 AM EDT This is an imaging study not interpreted or resulted by a [facility] or [employer] contracted radiologist. Samantha Cevallos DO RADIOLOGY (RAD G ENERAL) documented in this encounter Advance Directives * Full Code (Latest Code Status on File) Date Activated Date Inactivated Comments 05/20/2024 8:40 PM This order ref lects the patients wishes and were consensually agreed [...] Advance Directives occurred with: Patient Care Teams Contract Serviceman Relationship Specialty Start Date End Date Adolph Aldridge MD [address] [place] [address] PCP - General Family Medicine 10/21/18 documented as of this encounter
--- OUTSIDE RECORDS SUMMARY | 2024-06-29 05:21 | External Medical Summary ---
Author Name Unknown Address Unknown Organization K01:[facility] [address] Laboratory Report Ordering Provider Test Date Status LOBO SUBRAMANIAN 05/23/2024 10:46:23 Final Observation Date Value Abnormality Reference (Units ) Status WBC, Total 05/23/2024 10:46:23 3.59 Below low normal 4.00-10.80 (K/uL) Final RBC 05/23/2024 10:46:23 2.89 3.85-5.15 (M/uL) Final Hemoglobin 05/23/2024 10:46:23 9.5 Below low normal 12.0-15.3 (g/dL) Final HCT 05/23/2024 10:46:23 29.6 Below low normal 36.0-45.2 (%) Final MCV 05/23/2024 10:46:23 102.4 81.5-97.5 (fL) Final MCH 05/23/2024 10:46:23 32.9 27.0-34.0 (pg) Final MCHC 05/23/2024 10:46:23 32.1 32.0-36.0 (g/dL) Final RDW 05/23/2024 10:46:23 22.1 11.5-15.5 (%) Final Platelets 05/23/2024 10:46:23 106 Below low normal 140-400 (K/uL) Final MPV 05/23/2024 10:46:23 9.6 6.6-11.1 (fL) Final Nucleated erythrocytes/100 leukocytes [Ratio] in Blood by Automated count 05/23/2024 10:46:23 0 <=0 (/100 WBCs) Final Performing Location [facility] [place] [address] [facility] [address]
--- OUTSIDE RECORDS SUMMARY | 2024-06-29 05:21 | External Medical Summary | Summary of Care ---
Author Name Unknown Organization [facility] Address [address] [place] [address] Phone [phone] Care Team Providers Care Online Marketing Specialist Name Role Phone Adolph Aldridge MD Primary Care Provider [phone] Encounter Details Date Type Department Care Team (Latest Contact Info) Description 05/05/2024 4:35 PM EDT - 05/05/2024 7:39 PM EDT Hospital Encounter Radiology Film File [address] [place] [address] Discharge Disposition: Home - Self [...] 2 Suspended Additional Information OneTouch Delica Plus [id number] ns:DM type 2 with diabetic peripheral neuropathy [...] A1c goal of less than 7.0% ([facility]) Use to check sugars continuously. E 11.9 change every 10 days 3 Each 11 4 Suspended Additional Information hydrOXYzine HCl 25 MG Oral Tablet TAKE 1 TABLET BY MOUTH EVERY 6 HOURS NEEDED FOR ANXIETY 4 Suspended Dexcom G7 Technical Service Rep Device USE DAILY TO CHECK BLOOD SUGARS [...] needed for Pain or Hemorrhoids. 4 Suspended documented as of this encounter (statuses [...] PP sugars <120. Report levels to [facility] department weekly. 10. Advised patient that Glyburide, Metformin, and insulin may be safely used during for the control of blood sugar levels. Alexandra will begin her insulin therapy today. 11. Dietary consult to be done to instruct patient on appropriate nutrition and diet to aid in control of blood sugars. 12. Recommend urine culture each trimester. 13. Recommend [facility] ultrasound for limited anatomy at [...] if early screen is normal. 5. Recommend [facility] ultrasound for anatomy screen at [...] [facility] [address] [facility] [phone] Diamond Mcgowan MD [address] [place] [address] 06/09/2024 7:00 AM EDT - 06/09/2024 8:00 AM EDT Surgery CRS Waiting [facility], Cardiac Recovery Suite Waiting Unit, [address] [place] [address] Diamond Mcgowan MD [address] [place] [address] PTCA, CARDIAC ANGIOPLASTY, PERCUTANEOUS, 1 ARTERY 06/09/2024 7:00 AM EDT Office Visit Cardiology [facility] Advanced [facility], [place] [address] [place] [address] [facility] Cardiac Recovery [facility] [address], [place] [id number] 07/07/2024 12:30 PM EST Office Visit Orthopaedics [facility] [address] [place] [address] Ary Rowe MD [address] [facility] [place] [address] 09/01/2024 1:40 PM EST Office Visit [facility] [address] [place] [id number] Adolph Aldridge MD [address] [place] [address] 04/01/2025 2:40 PM EDT Telemedicine Neurology [address] [place] [address] Eros Marks DO [address] [place] [facility] [address] Scheduled Procedures Name Priority Associated Diagnoses [...] this encounter Medical Devices Implanted Type Area Life Educator Device Identifier Shelf Expiration Date Model / Serial / Lot Stent Protege Gps [id number] - [id number] Implanted:Qty : 1 on 09/29/2020 by Carmelo Ramos MD at OR [facility] Left: Chest [employer] : VASCULAR [id number] 09/20/2022 [id number] -[id number] / / [id number] Stent Viab [id number] - [id number] Implanted:Qty : 1 on 04/16/2023 by Carmelo Ramos MD at OR [facility] Right: Subclavian [employer] [id number] 01/26/2026 [id number] / [id number] / [id number] documented as of this encounter Procedures Procedure Name Priority Date/Time Associated Diagnosis Comments RADIOLOGY EXAM - GENERAL RAD (IMAGES ONLY,NO REPORT) Routine 05/05/2024 4:35 PM EDT documented in this encounter Results * RADIOLOGY EXAM - GENERAL RAD (IMAGES ONLY,NO REPORT) (05/05/2024 4:35 PM EDT) 05/05/2024 4:31 PM EDT Narrative Scheduling, Silent - 05/21/2024 12:11 PM EDT This is an imaging study not interpreted or resulted by a [facility] or [employer] contracted radiologist. Samantha Cevallos DO RADIOLOGY (RAD [...] Advance Directives occurred with: Patient Care Teams Online Marketing Specialist Relationship Specialty Start Date End Date Adolph Aldridge MD [address] [place] [address] PCP - General Family Medicine 10/21/18 documented as of this encounter
--- OUTSIDE RECORDS SUMMARY | 2024-06-29 05:21 | External Medical Summary | Summary of Care ---
Author Name Unknown Organization [facility] Address [address] [place] [address] Phone [phone] Care Team Providers Care Active Directory Systems Administrator Name Role Phone Adolph Aldridge MD Primary Care Provider [phone] Encounter Details Date Type Department Care Team (Latest Contact Info) Description 05/05/2024 7:40 PM EDT - 05/05/2024 7:44 PM EDT Hospital Encounter Radiology Film File [address] [place] [address] Discharge Disposition: Home - Self [...] 2 Suspended Additional Information OneTouch Delica Plus [id number] ns:DM type 2 with diabetic peripheral neuropathy [...] NEEDED FOR ANXIETY 4 Suspended Dexcom G7 Admissions Coordinator Device USE DAILY TO CHECK BLOOD [...] and PP sugars <120. Report levels to [facility] department weekly. 10. Advised patient that Glyburide, Metformin, and insulin may be safely used during for the control of blood sugar levels. Alexandra will begin her insulin therapy today. 11. Dietary consult to be done to instruct patient on appropriate nutrition and diet to aid in control of blood sugars. 12. Recommend urine culture each trimester. 13. Recommend [facility] ultrasound for limited anatomy at [...] if early screen is normal. 5. Recommend [facility] ultrasound for anatomy screen at [...] [facility] [address] [facility] [phone] Diamond Mcgowan MD [address] [place] [address] 06/09/2024 7:00 AM EDT - 06/09/2024 8:00 AM EDT Surgery CRS Waiting [facility], Cardiac Recovery Suite Waiting Unit, [address] [place] [address] Diamond Mcgowan MD [address] [place] [address] PTCA, CARDIAC ANGIOPLASTY, PERCUTANEOUS, 1 ARTERY 06/09/2024 7:00 AM EDT Office Visit Cardiology [facility] Advanced Medicine, [place] [address] [place] [address] [facility] Cardiac Recovery [facility] [address] [place], [place] [id number] 07/07/2024 12:30 PM EST Office Visit Orthopaedics [facility] [address] [place] [address] Ary Rowe MD [address] [place] [address] 09/01/2024 1:40 PM EST Office Visit [facility] [address] [place] [phone] Adolph Aldridge MD [address] [place] [address] 04/01/2025 2:40 PM EDT Telemedicine Neurology [address] [place] [address] Eros Marks DO [address] [place] [facility] [place] [address] Scheduled Procedures Name Priority Associated Diagnoses [...] this encounter Medical Devices Implanted Type Area Outdoor Power Equipment Mechanic Device Identifier Shelf Expiration Date Model / Serial / Lot Stent Protege Gps [id number] - [id number] Implanted:Qty : 1 on 09/29/2020 by Carmelo Ramos MD at [place] [facility] Left: Chest [employer] : VASCULAR [id number] 09/20/2022 [id number] -[id number] / / [id number] Stent Viab [id number] - [id number] Implanted:Qty : 1 on 04/16/2023 by Carmelo Ramos MD at OR [facility] [place] Right: Subclavian [employer] [id number] 01/26/2026 [id number] / [id number] / [id number] documented as of this encounter Procedures Procedure Name Priority Date/Time Associated Diagnosis Comments RADIOLOGY EXAM - CT (IMAGES ONLY, NO REPORT) Routine 05/05/2024 7:40 PM EDT documented in this encounter Results * RADIOLOGY EXAM - CT (IMAGES ONLY, NO REPORT) (05/05/2024 7:40 PM EDT) 05/05/2024 7:36 PM EDT Narrative Scheduling, Silent - 05/21/2024 11:27 AM EDT This is an imaging study not interpreted or resulted by a [facility] or [employer] [facility] radiologist. Samantha Ocampoele Ban DO RAD CT documented in this encounter Advance Directives * [...] Advance Directives occurred with: Patient Care Teams Active Directory Systems Administrator Relationship Specialty Start Date End Date Adolph Aldridge MD [address] [place] [address] PCP - General Family Medicine 10/21/18 documented as of this encounter
--- OUTSIDE RECORDS SUMMARY | 2024-06-29 05:21 | External Medical Summary | Summary of Care ---
Author Name Unknown Organization [facility] Address [address] [place] [address] Phone [phone] Care Team Providers Care Healthcare Administrative Assistant Name Role Phone Evi Aldridge MD Primary Care Provider [phone] Reason for Visit * Auth/Cert Specialty Diagnoses / Procedures Referred By Adarsh t Referred To Contact Diagnoses CAD, anemia, hemorrhoids Samantha Cevallos, [address] [place] [address] Admissions [facility] [address] [place] [address] Referral ID Status Reason Start Date Expiration Date Visits Re quested Visits Authorized [id number] Encounter Details Date Type Department Care Team (Latest Contact Info) Description 05/20/2024 7:03 PM EDT - 05/23/2024 4:50 PM EDT Hospital Encounter Advanced Acute Care Medical/Transplant Unit, [facility] 3rd Floor [address] [place] [address] Samantha Cevallos [address] [place] [address] Harrison Avila DO [address] [place] [address] Janusz Del Castillo MD [address] [facility] [place] [address] Various: EKG,GICOLON Discharge Disposition: Home - Self Care Allergies Active Allergy Reactions Criticality Noted Date Comments Amoxicillin Low 01/27/2021 Other reaction(s): VOMITING Cefaclor Rash Low 11/23/2011 Cephalosporins Rash Low 05/16/1999 documented as of this encounter (statuses as of 05/24/2024) Medications Medication Sig Dispensed Refills Start Date [...] Tablet 03/14/20 22 Active OneTouch Delica Plus [id number] ons:DM type 2 with diabetic peripheral neuropathy [...] hemoglobin A1c goal of less than 7.0% ([facility]) Use to check sugars continuously. E 11.9 change every 10 days 3 Each 01/06/20 24 Active hydrOXYzine HCl 25 MG Oral Tablet TAKE 1 TABLET BY MOUTH EVERY 6 HOURS NEEDED FOR ANXIETY 02/12/20 24 Active Dexcom G7 Flanger Device USE DAILY TO CHECK BLOOD SUGARS CONTINUOUSLY (DX CODE E11.9) 01/11/20 24 Active Varenicline Tartrate 1 MG Oral TabletIndications :Tobacco use Take 1 Tablet by mouth in the morning and 1 Tablet before bedtime. As directed on box.. 60 Tablet 3 02/20/20 24 Active medroxyPROGESTERo ne Acetate 150 MG/ML [...] the morning. 30 Tablet 05/23/20 24 Active Vitron-C 65-125 MG Oral Tablet (Iron-Vitamin C 65-125 mg per tab) Take 1 Tablet by mouth in the morning. 30 Tablet 05/23/20 24 Active Albuterol Sulfate (2.5 MG/3ML) 0.083% Inhalation Nebulization Solution (Proventil)Indica tions:Mild intermittent asthma with exacerbation Inhale 1 Vial via nebulizer every 4 hours as needed for Wheezing. 150 mL 3 03/10/20 21 024 Discontinued buPROPion HCl ER (XL) 150 MG Oral Tablet Extended Release 24 Hour (Wellbutrin XL)Indications:De pression with anxiety Take 1 Tablet by mouth in the morning. Increase to 1 tab twice daily after 2 weeks. 60 Tablet 5 12/25/19 24 024 Discontinued Metoprolol Succinate 25 MG Oral Capsule ER 24 Hour Sprinkle Take 25 mg by mouth in the morning and 25 mg before bedtime. 024 Discontinued Rosuvastatin Calcium 20 MG Oral Tablet (Crestor) Take 1 Tablet by mouth every evening. 024 Discontinued Metoprolol Succinate ER 25 MG Oral Tablet Extended Release 24 Hour (toPROL XL) Take 1 Tablet by mouth in the morning and 1 Tablet before bedtime. 024 Discontinued documented as of this encounter (statuses as of 05/24/2024) Active Problems Problem Noted Date Diagnosed Date [...] as of this encounter (statuses as of 05/24/2024) Resolved Problems Problem Noted Date Diagnosed Date [...] and PP sugars <120. Report levels to [facility] department weekly. 10. Advised patient that Glyburide, Metformin, and insulin may be safely used during for the control of blood sugar levels. Alexandra will begin her insulin therapy today. 11. Dietary consult to be done to instruct patient on appropriate nutrition and diet to aid in control of blood sugars. 12. Recommend urine culture each trimester. 13. Recommend [facility] ultrasound for limited anatomy at 12-14 weeks, for full anatomy at 18-20 weeks, and for echocardiography at 22-24 weeks. 14. Start testing with twice weekly NST and weekly MATTHEW beginning at 32 weeks or earlier if any evidence of uncontrolled blood sugars, renal abnormalities, or HTN. 15. Recommend [facility] growth ultrasound every 4 weeks after 24 [...] as of this encounter (statuses as of 05/24/2024) Immunizations Name Administration Dates Next Due COVID-19 [...] Sign Reading Time Taken Comments Blood Pressure 154/52 05/23/2024 12:30 PM EDT Pulse 75 05/23/2024 12:30 PM EDT Temperature 36.6 C (97.8 F) 05/23/2024 12:30 PM E DT Respiratory Rate 16 05/23/2024 12:30 PM EDT Oxygen Saturation 100% 05/23/2024 5:41 AM EDT Inhaled Oxygen Concentration - - Weight 78.3 kg (172 lb 9.9 oz) 05/23/2024 5:41 A M EDT Height 167.6 cm (5' 6") 05/20/2024 10:09 PM EDT Body Mass Index 27.86 05/20/2024 10:09 PM EDT documented in this encounter Functional Status [...] 08/30/2023 documented as of this encounter Discharge Summaries * Harrison Avila DO - 05/22/2024 2:03 PM EDT [address] [address] Admission Date: 05/20/2024 Discharge Date: 05/23/2024 RECOMMENDED TO DO FOR NEXT PROVIDER(S): Follow hemoglobin in 1 week Needs cardiac catheterization as previously scheduled If rectal bleeding continues, may need evaluation by colorectal surgery for definitive treatment ofhemorrhiods Needs to restart dialysis REASON(S) FOR MEDICATION CHANGE(S): Rosuvastatin stopped for ESRD and not high dose stating at adjusted dose, started on lipitor. Norvasc started and metoprolol increased per cardiology Chrissn C stated for iron deficiency anemia DISPOSITION ON DISCHARGE: Home with [facility] Active Hospital Problems Diagnosis S/P primary angioplasty with coronary stent Bleeding hemorrhoids CAD (coronary artery disease) HFrEF (heart failure with reduced ejection fraction) (HCC) Chest pain ESRD (end stage renal disease) on dialysis (HCC) Depression with anxiety Resolved Hospital Problems Diagnosis Date Resolved *Principal Diagnosis - Acute blood loss anemia 05/23/2024 Hyperkalemia 05/23/2024 ADMISSION HISTORY & PHYSICAL EXAM (focused): 05/20/2024 Alexandra Arguello is a 38 year oldefv-lvwr-xhl female with a past medical history of: 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 At that time she presented to [facility] where labs were concerning for hemoglobin 7, MCV 107, K 5.4, troponin I hs 71, 73. At that time she received 1 unit PRBCs he was transferred to [facility] for further evaluation. Today patient states that she has had sharp, 9/10 nonradiating midsternal chest pain for the past month. The pain is constant and worse with dialysis. It does not improve with Tylenol, nitroglycerin,tramadol. She also endorses a 2 week history of orthopnea that improves with sessions of dialysis. Patient also endorses a month long history of constant bleeding from her hemorrhoids. States that she is having bleeding with wiping and with bowel movements. She presented to the ED for this same issue at [facility] on 05/19 & 05/20. Per chart review: Records from [facility] show that the patient was admitted from 04/29-04/30 for chest pain. She was also admitted again on 05/05 2 05/10 where she underwent left heart catheterization on 05/07 with placement of stent in right PDA. Per Cardiology report, patient had a BAG SHAKER of the LAD at that time as well that was left for planned intervention on 06/08 at [facility]. Hemoglobin was down to 7.5 that admissionprompting transfusion of 1 unit PRBC on 05/06. Patient was diagnosed with a new heart failure reduced ejection fraction 35-40% and new wall motionabnormalities on echo. Echo revealed severe hypokinesis of apex and mid septal/inferior wall. At that time metoprolol, aspirin, Plavix, statin were initiated. [place]. Lives near grandparents and lots of family nearby. They wishe to be Code Status: Full Code The preferred decision maker in the event that they are unable is her mother Cony. General: NAD HEENT: normocephalic, atraumatic, non-icteric sclera, moist mucous membranes Neck: supple, no JVD Heart: RRR, 1/6 systolic crescendo decrescendo murmur best heard at the LUSB Lungs: normal effort, CTA bilaterally, no wheezes, no crackles Abdomen: soft, nondistended, nontender Extremities: no LE edema bilaterally, intact peripheral pulses, right upper extremity with AV fistula with palpable thrill Skin: warm, dry, intact, no rashes, no skin lesions Neurologic: AAOx3, no focal deficits, following commands, moving all extremities spontaneously, answering questions appropriately Psych: normal affect HOSPITAL COURSE (focused): Alexandra Arguello is a 38 year oldajh-jdhr-yus female with a past medical history as above who is admitted for further workup and treatment of acute blood loss anemia and chest pain. She continued to have issues with BRBPR and ongoing chest pain for which seemed atypical. Her troponins peaked at 176, and with her background of recent stent to PDA, and BAG SHAKER of LAD she was seen by cardiology who recommended to increase her anti-anginal therapies (BB and CCB), with plans to get the GI bleed under control before she can get cath'd. On 05/22 she underwent colonoscopy which showed hemorrhoids and a fisture. Started on mirilax. Hemoglobins were stable and bleeding improved. Needs repeat CBC. Was seen by cardiology and ? Demand ischemia. Was started on norvasc. Needs cardiac cath as previously scheduled. Chest pain is felt to be non-cardiac. Received HD for ESRD. Operations & Procedures: colonoscopy Complications: none significant Significant Lab and Imaging Results: As mentioned above Results Pending at Discharge: Lab Results Pending at Discharge: HEPATITIS B SURFACE ANTIBODY Routine HEPATITIS B SURFACE ANTIGEN Routine HEPATITIS B CORE ANTIBODY IGM Routine CBC Routine RENAL FUNCTION PANEL Routine MEDICATION UPDATES AT DISCHARGE START taking these medications INSTRUCTIONS Acetaminophen 325 MG Tablet Commonly known as: Tylenol Take 3 Tablets by mouth every 6 hours as needed for Pain, Mild. amLODIPine 2.5 MG Tablet Commonly known as: Norvasc Take 1 Tablet by mouth in the morning. atorvaSTATin 80 MG Tablet Commonly known as: Lipitor Take 1 Tablet by mouth every afternoon. Dulera 200-5 MCG/ACT Inhaler Generic drug: Mometasone-Formoterol Inhale by mouth 2 Puffs in the morning AND 2 Puffs before bedtime. Vitron-C 65-125 MG Tablet Generic drug: Iron-Vitamin C 65-125 mg per tab Take 1 Tablet by mouth in the morning. CHANGE how you take these medications INSTRUCTIONS buPROPion XL 150 MG Tb24 Commonly known as: Wellbutrin XL What changed: additional instructions Take 1 Tablet by mouth in the morning. metoprolol succinate XL 50 MG Tb24 Commonly known as: toPROL XL What changed: medication strength how much to take Take 1 Tablet by mouth in the morning and 1 Tablet before bedtime. CONTINUE taking these medications INSTRUCTIONS albuterol HFA 108 (90 BASE) MCG/ACT inhaler Inhale 2 Puffs by mouth every 4 hours as needed for Wheezing. aspirin 81 MG chewable tablet Take 1 Tablet by mouth in the morning. Benzonatate 100 MG Capsule Commonly known as: Tessalon Perles Take 2 Capsules by mouth 3 times a day as needed for Cough. calcium acetate (Phos Binder) 667 MG Caps Capsule Commonly known as: Phoslo Take 3 Caps by mouth three times a day with meals. carBAMazepine xr 200 MG Tb12 Commonly known as: Tegretol-Xr Take 1 Tablet by mouth 2 times a day in the morning and at bedtime. cinacalcet 90 MG Tabs Commonly known as: Sensipar Take 1 tablet by mouth daily with dinner Compressor Nebulizer Misc Inhale via nebulizer. Use as directed.Dx J45.901 (asthma exacerbation) Dexcom G7 Flanger Katerina USE DAILY TO CHECK BLOOD SUGARS CONTINUOUSLY (DX CODE E11.9) Dexcom G7 Sensor Misc Use to check sugars continuously. E 11.9 change every 10 days Gabapentin 100 MG Capsule Commonly known as: Neurontin Take 2 Capsules by mouth in the morning and 2 Capsules before bedtime. hydrOXYzine HCl 25 MG tablet TAKE 1 TABLET BY MOUTH EVERY 6 HOURS NEEDED FOR ANXIETY lidocaine 5 % ointment Apply topically to affected area 4 times a day as needed for Pain or Hemorrhoids. LORAzepam 0.5 MG Tablet Commonly known as: Ativan TAKE 1 TABLET BY MOUTH EVERY 8 HOURS NEEDED FOR PANIC ATTACKS AND BEFORE DIALYSIS Strength: 0.5 mg medroxyPROGESTERone acetate 150 MG/ML Suze Commonly known as: Depo-Provera INJECT 150 MG INTRAMUSCULARLY (INTO A LARGE MUSCLE) ONCE EVERY 3 MONTHS MiraLax packet Generic drug: Polyethylene Glycol 3350 Take 1 Packet by mouth in the morning and 1 Packet before bedtime. Mirtazapine 7.5 MG Tablet Commonly known as: Remeron Take 1 Tablet by mouth at bedtime. omeprazole 20 MG Cpdr Commonly known as: PriLOSEC Take 1 Capsule by mouth in the morning. 1 hour before the first meal of the day. ondansetron 4 MG Tablet Commonly known as: Zofran Take by mouth 1 Tablet every 6 hours as needed for Nausea. OneTouch Delica Plus [id number] Misc use 1 LANCET to TEST BLOOD SUGAR four times a day. DX E11.9 OneTouch Verio Strp Generic drug: Glucose Blood Use up to 4 times a day E11.9 OneTouch Verio w/Device Kit Use up to 4 times a day E11.9 Plavix 75 MG Tablet Generic drug: clopidogrel Take 1 Tablet by mouth in the morning. Renal Vitamin 0.8 MG Tabs Take 1 Tablet by mouth daily. Varenicline Tartrate 1 MG Tablet Commonly known as: Chantix Continuing Month Manan Take 1 Tablet by mouth in the morning and 1 Tablet before bedtime. As directed on box.. STOP taking these medications rosuvastatin 20 MG Tablet Commonly known as: Crestor SCHEDULED FOLLOW-UP: Future Appointments Appt Date/Time Provider Department 06/09/2024 7:00 AM Peggy, Cardiac Recovery [facility] Cardiology [facility] [place] 07/07/2024 12:30 PM Ary Rowe MD Orthopaedics [facility] 09/01/2024 1:40 PM Evi Aldridge MD [facility] 04/01/2025 2:40 PM Eros Marks DO Neurology Norman Aldridge [place] Arrive at: Patient's Home Other Information Indwelling Devices: LINES ALL Duration Hemodialysis Arteriovenous Graft Left Upper Arm -- days Hemodialysis Arteriovenous Fistula Left Upper Arm 2827 days Hemodialysis Arteriovenous Fistula Right Upper Arm 1236 days Continuous Glucose Monitor Anterior;Right Thigh 113 days Vital Signs (last recorded): Most Recent Systolic BP: 157 mmHg (05/23/24 1200) Most Recent Diastolic BP: 47 mmHg (05/23/24 1200) Pulse: 76 (05/23/24 1205) Resp: 15 (05/23/24 1205) Most Recent Temperature: 36.39 C (05/23/24 1205) Weight: 78.3 kg (172 lb 9.9 oz) (05/23/24 0541) SpO2: 100 % (05/23/24 0541) O2 flow rate: 2 L/MIN (05/23/24 0800) Allergies: Amoxicillin, Cefaclor, and Cephalosporins Activity: as tolerated Diet: cardiac diet, diabetic diet, and renal diet Code Status: Full Code Condition on Discharge: stable Isolation status: None Cognition: normal HOSPITAL CONSULTS ORDERED: NEPHROLOGY CONSULT IP GASTROENTEROLOGY CONSULT IP CARDIOLOGY CONSULT IP PRIMARY CARE PROVIDER: PCP: Evi Aldridge MD [address] [place] [address] [facility] [place] [address] (office) [phone] (fax) Note: To contact a physician responsible for this patients hospital care, please call [facility] [phone]. \\ Primary care physician Evi Aldridge MD I certify this patient is confined to the home and needs intermittent senior living care, physical therapy and/or speech therapy, or continues to need occupational therapy. The patient is under my care and I have authorized services on this plan of care. The clinical findings of decrease in functional mobility secondary to decreased strength, decreased balance, and decreased endurance due to recent hospitalization and overall medical condition support the need for home health, and the patientdemonstrates a considerable and taxing effort when attempting to leave the home. The patient had a [id number] encounter with an allowed provider type on 05/23/24 and the encounter was related to the primary reason for home health care. Under situations in whichI am an acute/post acute facility physician who will not be following the patient's plan of care, Iauthorized services on this plan of care and I transfer the patient for plan of care certification to the primary care physician named below who will follow the patient and update the plan of care. Primary care physician Evi Aldridge MD I spent a total of 45 minutes coordinating, documenting, and providing care for this patient excluding time spent in the performance of separately billed services. documented in this encounter Discharge Instructions * Discharge Instr - AVS* Harrison Avila DO - 05/22/2024 2:08 PM EDT Discharge Date: 05/22/2024 The information below provides you with the instructions and the list of medications you need to betaking following discharge from the hospital. If you have any questions, please ask before leaving. If you have questions after leaving, you can reach us at the numbers below. YOUR HOSPITAL PROVIDERS: Discharging Physician: Hrarison Avila DO Resident Physician: Lewis Langford MD Department: Hospital Medicine IF YOU HAVE QUESTIONS: - To reach this Provider Saturday through Saturday (8:00 AM to 4:30 PM) for any questions or test results: Call [phone] - For after-hours concerns: Call [phone] and have your provider paged, or the provider on callfor the Department of Hospital Medicine paged. - Please note, the discharging provider will not be able to provide you with any medications refills. Please discuss these with your primary care provider. FOR WORSENING SYMPTOMS: - If you have new symptoms, or your symptoms get worse, please contact your Discharge Provider or Primary Care Provider (PCP). If these providers are not available, you can go to your local [facility] during their business hours. - In an EMERGENCY situation: Call [phone] or go to the nearest emergency room. A BRIEF SUMMARY OF YOUR HOSPITAL STAY: You were admitted to the hospital after you presented with the concern of bleeding from GI tract and chest pain. You were seen by the GI doctors and underwent a colonoscopy that showed no polyps, diverticulosis, or anything else that might cause bleeding. You were also seen by cardiology who recommended to increase some of your medications (see below). You need to follow up for the cardiac catheterization as previously arranged. Your main diagnosis at discharge was: Acute blood loss anemia from hemorrhoids Operations & Procedures performed: dialysis 05/21, colonoscopy 05/22 Complications: none Inpatient test results that are pending at discharge: none Advance Directive Documented: Advance Directive Does the Patient have an Advance Directive? No YOUR FOLLOW UP APPOINTMENTS: Primary Care Provider Information: PCP: EVI ALDRIDGE [address] [place] [address] [phone] An appointment was requested with your PCP for within 1 week of discharge from the hospital. (Please take this form to this visit with your primary care physician.) You need the following studies in the future: Bloodwork in 1 week including a complete blood count Follow up for Dialysis as you normally would Follow up with cardiology as previously arranged including for cardiac catheterization INSTRUCTIONS: Diet: Previous diet including renal and diabetic diet Activity: No limitations to activity Ensure that your bowel movements are regular, soft, and passed without difficulty. Take laxatives and/or fiber supplements and modify your diet as needed to do so. Call your primary care physician or seek medical attention if you have fevers, chills, have chest pain, shortness of breath, non-stop vomiting or diarrhea, confusion, or massive bleeding. If you feel suicidal or homicidal, please call the crisis hotline at [phone] ([phone]). MEDICATION CHANGES START TAKING THE FOLLOWING MEDICINES: 1. Amlodipine (this is a calcium channel pool for chest pain) - Take 2.5 mg, daily 2. Atorvastatin (this is a statin for cholesterol and heart disease) - Take 80 mg, daily 3. Vitron C (this is an iron supplement for anemia) - Take one tablet, daily CHANGED MEDICINES: 1. Metoprolol (this is a beta pool for heart disease) - It was increased in dose because of your chest pain. Take 50 mg, twice daily. STOP TAKING THE FOLLOWING MEDICINES: 1. Rosuvastatin (this is a statin for cholesterol and heart disease) - It was discontinued because of your kidney function. Atorvastatin is safer in people with kidney disease. CONTINUE TAKING ALL OTHER MEDICINES PRESCRIBED documented in this encounter Progress Notes * Negin Mac MD - 05/23/2024 2:23 PM EDT PROGRESS NOTE - Nephrology [facility] [address] Name: Alexandra Arguello Location: [address] Hospital Day: 3 Overview/ Follow up: ESRD requiring dialysis Subjective: No acute events overnight Seen during dialysis today, tolerating well Reported intermittent chest pain, No dyspnea, nausea or vomiting, abdominal pain, fevers , chills, Planned for PCI as outpatient as per cardiology, Discharge today after dialysis Ordered hep B panel, could not reach to her dialysis unit today to check if received any recent hepatitis B vaccination to avoid false interpretation Review of Systems:all systems were reviewed and negative except as above Prior medical notes/PMH/PSH/FH/SH: reviewed Allergies: reviewed Current medication list reviewed. Current Facility-Administered Medications Medication Dose Route Frequency Provider Ferrous Sulfate (Feosol) tab 325 mg 325 mg Oral Daily Noon Lewis Langford MD omeprazole (PriLOSEC) cap 20 mg 20 mg Oral Daily(AM) Lewis Langford MD Vitamin C (Ascorbic Acid) tab 250 mg 250 mg Oral Daily Yakelinon Lewis Langford MD amLODIPine (Norvasc) tab 2.5 mg 2.5 mg Oral Daily(AM) Lewis Langford MD metoprolol succinate XL (toPROL XL) tab 50 mg 50 mg Oral BID(AM/PM) Lewis Langford MD oxygen GAS Inhalation Oxygen Hema Segovia MD atorvaSTATin (Lipitor) tab 80 mg 80 mg Oral Q 1700 Lewis Langford MD Acetaminophen (Tylenol) tab 975 mg 975 mg Oral Q6H PRN Seda Lind, aspirin chew tab 81 mg 81 mg Oral Daily(AM) Seda Lind, buPROPion (Wellbutrin) tab 75 mg 75 mg Oral BID(AM/PM) Seda Lind, calcium acetate (Phos Binder) (Phoslo) cap/tab 2,001 mg 2,001 mg Oral With meals Orville Lind DO carBAMazepine ER (Carbatrol) cap 200 mg 200 mg Oral Q12H Seda Lind, cinacalcet (Sensipar) tab 90 mg 90 mg Oral Daily 1900 Seda Lind DO clopidogrel (pLAVix) tab 75 mg 75 mg Oral Daily(AM) Seda Lind, Gabapentin (Neurontin) cap 200 mg 200 mg Oral BID(AM/PM) Seda Lind, LORAzepam (Ativan) tab 0.5 mg 0.5 mg Oral Daily PRN Seda Lind DO Mirtazapine (Remeron) tab 7.5 mg 7.5 mg Oral QHS PRN Seda Lind DO Polyethylene Glycol 3350 (Miralax) oral powder 17 g 17 g Oral BID(AM/PM) Seda Lind DO sodium chloride 0.9 % flush/inj 3 mL 3 mL IV Push PRN Seda Lind DO Objective/Physical Examination Most Recent Vital Signs: BP: 157 mmHg/47 mmHg (05/23/24 1200) Pulse: 76 (05/23/24 1205) Resp: 15 (05/23/24 1205) Temp: 36.39 C (05/23/24 1205) Temp Summary: Temp Min: 36.4 C (97.5 F) Max: 36.7 C (98.1 F) SpO2: 100 % (05/23/24 0541) O2 flow rate: 2 L/MIN (05/23/24 0800) Supplemental O2 Delivery: Room Air, None (05/23/24 1205) Vital Signs last 24 Hours: Systolic BP: Most Recent Systolic BP Av mmHg Min: 102 mmHg Max: 157 mmHg Temperature: Most Recent Temperature Av.5 C Min: 36.39 C Max: 36.72 C Pulse: Pulse Av.5 Min: 66 Max: 76 Respirations: Resp Av.1 Min: 10 Max: 16 SpO2: SpO2 Av % Min: 100 % Max: 100 % Body mass index is 27.86 kg/m. Intake/Output Summary (Last 24 hours) at 05/23/2024 1423 Last data filed at 05/23/2024 1200 Gross per 24 hour Intake 275 ml Output 1500 ml Net -1225 ml Constitutional: No acute respiratory distress. Tolerates room air. HEENT: NCAT CV: regular rate, regular rhythm Chest: normal respiratory effort. Lungs clear to auscultation. Abdomen: soft, no tenderness, nondistended Extremities: no LEs edema. Spontaneous movement in all extremities Skin: warm, dry Neuro: awake, alert, conversation appropriate Psych: appropriate mood Dialysis Access: LUE AVF cannulated, also has RUE AVF not using Studies: Labs and other studies reviewed with pertinent findings noted below: Lab results within last 7 days (see chart for full results) Units 05/23/24 0705/22/24 0743 05/21/242010 SODIUM mmol/L 135 134* 132* POTASSIUM mmol/L 4.2 4.4 4.3 CHLORIDE mmol/L 93* 94* 93* CO2 mmol/L 23 25 27 BUN mg/dL 41* 21* 15 CREATININE mg/dL 5.7* 3.7* 2.8* Lab results within last 7 days (see chart for full results) Units 05/23/24 1046 05/23/24 0719 05/22/24 1730 HGB g/dL 9.5* 8.1* 8.7* HCT % 29.6* 26.0* 28.3* WBC K/uL 3.59* 3.61* 3.74* PLT K/uL 106* 100* 107* Lab results within last 7 days (see chart for full results) Units 05/23/24 0719 05/22/24 0743 05/21/24201005/21/24 0912 CALCIUM mg/dL 7.4* 8.4 9.5 9.5 Phosphorus mg/dL 7.1* 5.7* -- 5.8* Albumin g/dL 3.6* 3.9 -- 3.6* Recent Cultures (2 Weeks) No lab values to display. Imaging : Personally reviewed pertinent images Impression and Plan: # Chest pain>>history of CAD, s/p recent PCI to rPDA with ARIEL noted cardiology recs, demand ischemia with GI bleed, no definitive ACS, recommended outpatient PCI as scheduled #ESRD:Dialysis today, will continue maintenance iHD as MWF as outpatient #Acid base and Electrolytes: Normal K and HCO3 #Acute on Chronic blood loss anemia/lower GI bleed, history of bleeding hemorrhoids, s/p Colonoscopy 05/22> anal fissure, thrombosed external hemorrhoids: Hb 9.5, continue EMILY as outpatient #Renal Osteodystrophy: Hyperphosphatemia, continue dietary phosphorus restriction, continue CASH REGISTER OPERATOR phosphorus binders, # HTN: Blood pressure acceptable. Clinically euvolumic, Fluid and dietary salt restriction. Adjust medications as per hemodialysis Thanks for letting me participate in this patient's care. Negin Mac MD Associate nephrology . * Madelin Mistry MD - 05/22/2024 2:45 PM EDT Progress Note - Nephrology [facility] [address] Name: Alexandra Arguello Location: ENDO [facility] HFAM/Endo Follow up ESRD on hemodialysis (MWF schedule/[facility] Nieves/DANY AVF access) admitted on 05/20/2024 as a transfer from [facility] ED where she presented with dizziness, chest pain and generalized weakness after her routine dialysis session was terminated earlier due to same complaints. Found to have lower GI bleed Had dialysis yesterday. She had some chest pain during dialysis, UF 3L. SUBJECTIVE: No acute events overnight. She had no new complaints today. Scheduled for colonoscopy Current medication list reviewed. Current Facility-Administered Medications Medication Dose Route Frequency Provider / NSS infusion Intravenous Continuous Hema Segovia MD amLODIPine (Norvasc) tab 2.5 mg 2.5 mg Oral Daily(AM) Lewis Langford MD metoprolol succinate XL (toPROL XL) tab 50 mg 50 mg Oral BID(AM/PM) Lewis Langford MD oxygen GAS Inhalation Oxygen Hema Segovia MD atorvaSTATin (Lipitor) tab 80 mg 80 mg Oral Q 1700 Lewis Langford MD Acetaminophen (Tylenol) tab 975 mg 975 mg Oral Q6H PRN Seda Lind, aspirin chew tab 81 mg 81 mg Oral Daily(AM) Seda Lind, buPROPion (Wellbutrin) tab 75 mg 75 mg Oral BID(AM/PM) Seda Lind, calcium acetate (Phos Binder) (Phoslo) cap/tab 2,001 mg 2,001 mg Oral With meals Orville Lind, carBAMazepine ER (Carbatrol) cap 200 mg 200 mg Oral Q12H Seda Lind DO cinacalcet (Sensipar) tab 90 mg 90 mg Oral Daily 1900 Seda Lind DO clopidogrel (pLAVix) tab 75 mg 75 mg Oral Daily(AM) Seda Lind DO Gabapentin (Neurontin) cap 200 mg 200 mg Oral BID(AM/PM) Seda Lind DO LORAzepam (Ativan) tab 0.5 mg 0.5 mg Oral Daily PRN Seda Lind DO Mirtazapine (Remeron) tab 7.5 mg 7.5 mg Oral QHS PRN Seda Lind DO Pantoprazole (Protonix) inj 40 mg 40 mg IV Push Q12H Seda Lind DO Polyethylene Glycol 3350 (Miralax) oral powder 17 g 17 g Oral BID(AM/PM) Seda Lind DO sodium chloride 0.9 % flush/inj 3 mL 3 mL IV Push PRN Seda Lind DO O: BP 108/43 | Pulse 70 | Temp 36.5 C (97.7 F) | Resp 11 | Ht 1.676 m (5' 6") | Wt 80 kg (176 lb 5.9 oz) | SpO2 100% | BMI 28.47 kg/m | BSA 1.93 m Intake/Output Summary (Last 24 hours) at 05/22/2024 1445 Last data filed at 05/22/2024 1436 Gross per 24 hour Intake 308 ml Output 3000 ml Net -2692 ml Constitutional: Not in respiratory distress HEENT: atraumatic, no icterus CV: regular rate and rhythm Lungs: clear on auscultation Abdomen: not distended, not tender Extremities: no LE edema Neuro: alert, awake, oriented Dialysis Access: LUE and RUE AVF Lab results within last 7 days (see chart for full results) Units 05/22/24 0743 05/21/24201005/21/24 0912 SODIUM mmol/L 134* 132* 134* POTASSIUM mmol/L 4.4 4.3 6.1* CHLORIDE mmol/L 94* 93* 95* CO2 mmol/L 25 27 25 BUN mg/dL 21* 15 37* CREATININE mg/dL 3.7* 2.8* 5.2* Lab results within last 7 days (see chart for full results) Units 05/22/24 0743 05/21/24201005/21/24 0603 HGB g/dL 9.1* 9.2* 8.7* HCT % 29.3* 30.4* 26.2* WBC K/uL 4.00 3.64* 4.49 PLT K/uL 113* 119* 126* Lab results within last 7 days (see chart for full results) Units 05/22/24 0743 05/21/24201005/21/24 0912 05/20/24 2337 CALCIUM mg/dL 8.4 9.5 9.5 9.6 Phosphorus mg/dL 5.7* -- 5.8* -- Albumin g/dL 3.9 -- 3.6* 3.7* ASSESSMENT and PLAN #ESRD on HD. Next dialysis session on 05/23. currently off schedule. #Dialysis Access- Has been using LUE AVF for HD #Electrolyte abnormalities: Mild hyponatremia, potassium controlled #Anemia of blood loss #CKD MBD: Calcium controlled/hyperphosphatemia.Continue cinacalcet, Phoslo # HTN and volume status: Blood pressure controlled on amlodipine, metoprolol #Lower GI bleed, h/o bleeding hemorrhoids s/p colonoscopy 05/22. Found to have anal fissure, thrombosed external hemorrhoid CAD s/p ARIEL to PDA 05/07/24 HFrEF, EF 41% Chest pain- cardiology review noted. Recommend continuing DAPT, address lower GI bleed Nephrology service will continue to follow and arrange dialysis during current hospitalization. I reviewed the patient with Dr. Estefania Mistry MD. Nephrology Fellow Associated attestation - Negin Mac MD - 05/22/2024 6:26 PM EDT I saw and evaluated the patient today. I have reviewed the fellow physician note and agree. * Jasbir Benjamin MD - 05/22/2024 10:17 AM EDT PROGRESS NOTE - Gastroenterology Service [facility] [address] Name: Alexandra Arguello Location: [facility] B335/A Date: 05/22/2024 Time: 10:17 AM SUBJECTIVE: The patient was seen and examined, chart reviewed. Doing well this AM. Reports her last BM was yellow. Denies any recurrence of any blood in her stool. No abdominal pain. ROS: Reviewed, negative except as above. Objective OBJECTIVE: Most Recent Vital Signs: BP: 145 mmHg/68 mmHg (05/22/24 1012) Pulse: 71 (05/22/24 101) Resp: 16 (05/22/241011) Temp: 36.5 C (05/22/241011) Temp Summary: Temp Min: 35.7 C (96.3 F) Max: 37 C (98.6 F) SpO2: 100 % (05/22/24 101) O2 flow rate: Supplemental O2 Delivery: Room Air, None (05/22/24 101) Vital Signs Last 24 Hours: Systolic BP: Most Recent Systolic BP Av.3 mmHg Min: 124 mmHg Max: 196 mmHg Temperature: Most Recent Temperature Av.7 C Min: 35.72 C Max: 37 C Pulse: Pulse Av.6 Min: 69 Max: 83 Respirations: Resp Av.3 Min: 16 Max: 20 SpO2: SpO2 Av % Min: 100 % Max: 100 % General: resting comfortably, in no acute distress HEENT: normocephalic, atraumatic Thorax: S1 + S2, no murmurs, CTAB, normal inspiratory effort Abdomen: Non-distended, soft, non-tender Extremities: No edema. Neurologic: Awake, Alert, and Oriented, following commands Intake & Output Summary (Last 24 hours): Intake/Output Summary (Last 24 hours) at 05/22/2024 1017 Last data filed at 05/21/2024 1641 Gross per 24 hour Intake -- Output 3000 ml Net -3000 ml Net IO Since Admission: -3,000 mL [05/22/24 1017] LABS: Chemistry Panel: Lab results within last 7 days (see chart for full results) Units 05/22/24 0743 05/21/24201005/21/2491105/20/24 2337 SODIUM mmol/L 134* 132* 134* 134* POTASSIUM mmol/L 4.4 4.3 6.1* 5.5* CHLORIDE mmol/L 94* 93* 95* 95* CO2 mmol/L 25 EGFR mL/min 15* 22* 10* 12* BUN mg/dL 21* 15 37* 31* CREATININE mg/dL 3.7* 2.8* 5.2* 4.6* GLUCOSE mg/dL 100 126* 101 113 CALCIUM mg/dL 8.4 9.5 9.5 9.6 Phosphorus mg/dL 5.7* -- 5.8* -- ANION GAP mmol/L 15 12 14 14 Complete Blood Count: Lab results within last 7 days (see chart for full results) Units 05/22/24 0743 05/21/24201005/21/2460205/20/24 2337 WBC K/uL 4.00 3.64* 4.49 4.07 HGB g/dL 9.1* 9.2* 8.7* 8.6* HCT % 29.3* 30.4* 26.2* 27.0* PLT K/uL 113* 119* 126* 113* MCV fL 106.5 107.8 102.3 101.9 Coagulation Studies: No results in the last 7 days - inpatent use only Liver Function Panel: Lab results within last 7 days (see chart for full results) Units 05/22/2443 05/21/2491105/20/24 2337 Albumin g/dL 3.9 3.6* 3.7* Protein g/dL -- -- 5.9* Bilirubin, Total mg/dL -- -- 0.4 AST U/L -- -- 27 ALT U/L -- -- 15 Alkaline Phosphatase U/L -- -- 146* IMAGING/STUDIES: No imaging results in the last 72 hours ENDOSCOPY/COLONOSCOPY: Reviewed in [facility] and relevant for : Colonoscopy 03/29/2023 Impression : - Preparation of the colon was poor. - Stool in the entire examined colon. - No specimens collected. EGD 09/11/2022 Impression: - Normal esophagus. - Gastritis. Biopsied. - Mucosal changes in the duodenum. - Normal second portion of the duodenum Path: Colonoscopy 10/01/2017 - The examined portion of the ileum was normal. - Two 4 mm polyps in the descending colon, removed with a cold biopsy forceps. Resected and retrieved. - Diverticulosis in the sigmoid colon and in the descending colon. - The entire examined colon is normal. Biopsied. - The distal rectum and anal verge are normal on retroflexion view. 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 Currently no recurrence of BRPR and Hgb stable with plans for colonoscopy today RECOMMENDATIONS: - NPO pending colonoscopy today, post procedure reccs to follow - c/w QD PPI - Trend H&H and transfuse as necessary to maintain Hgb >7 Patient was discussed with , attending physician. Jasbir Benjamin MD Internal Medicine PGY-2 Associated attestation - Zachariah Serna DO - 05/22/2024 10:43 AM EDT I saw and evaluated the patient today. I have reviewed the resident/fellow physician note and agree. * Kari Uribe, Medical Student - 05/22/2024 7:09 AM EDT PROGRESS NOTE - Resident - Medicine [facility] [address] Name: Alexandra Arguello Location: [facility] B335/A Date: 05/22/2024 Time: 7:09 AM Admission date: 05/20/2024. HD 2 Summary: Patient is a 38-year-old female with PMHx of ESRD 2/2 FSGS on hemodialysis MWF since 2016,CAD s/p rPDA stent at [facility] on 05/07/2024, also found to have LAD chronic total occlusion, newly diagnosed HFmrEF, T2DM not on insulin, who presented to [facility] ED for bright red blood per rectum for 1 month, substernal chest pain for 1 month, and orthopnea for 2 weeks, found to have Hgb of 7 s/p 1 unit PRBC, transferred, pending GI evaluation for [facility] B335/A INTERVAL HISTORY: see HPI for full course of events This morning, patient was still reporting 8/10 chest pain, but said that she felt better when she took medication. Chest pain is described as substernal, nonradiating, nonpleuritic, unchanged from baseline. She has had continued rectal bleeding. Denies SOB, abdominal pain, N/V. Patient has only hadclear liquids all day on 05/20. Patient will be going for a colonoscopy on 05/22. ROS: Review of systems is complete and negative unless otherwise stated above in the HPI. Objective PHYSICAL EXAMINATION: Most Recent Vital Signs: BP: 140 mmHg/63 mmHg (05/22/24543) Pulse: 69 (05/22/24543) Resp: 16 (05/22/24543) Temp: 36.89 C (05/22/24543) Temp Summary: Temp Min: 35.7 C (96.3 F) Max: 37 C (98.6 F) SpO2: 100 % (05/22/24543) O2 flow rate: Supplemental O2 Delivery: Room Air, None (05/22/24543) Constitutional: no acute distress, resting comfortably in bed, speaking in full sentences HENT: NCAT, MMM, PERRLA Eyes: sclera and conjunctiva normal Neck: supple, normal range of motion CV: normal rate and rhythm, 2/6 midsystolic crescendo-decrescendo murmur loudest at base of heart Chest: normal respiratory effort, lungs clear to auscultation Abdomen: normal: soft, bowel sounds normal, no masses, tenderness or organomegaly Extremities: bilateral AV fistulas on upper arms, no clubbing, cyanosis, or edema, otherwise grossly normal, warm, and dry Neuro: AAOx3, no obvious deficits STUDIES: Labs and other studies reviewed with pertinent findings noted below: Cr 5.2, BUN 37, K 6.1 this morning Troponin 176 from 70s in [facility] Hgb stable at 8.7 since transfer Intake/Output Summary (Last 24 hours) at 05/22/2024 0709 Last data filed at 05/21/2024 1641 Gross per 24 hour Intake -- Output 3000 ml Net -3000 ml Net IO Since Admission: No IO data has been entered for this period [05/21/24 1030] Wt Readings from Last 5 Encounters: 05/22/24 80 kg (176 lb 5.9 oz) 04/28/24 81.3 kg (179 lb 3.2 oz) 02/19/24 77.7 kg (171 lb 4.8 oz) 02/06/24 77.1 kg (170 lb) 12/24/23 75.8 kg (167 lb) Serum creatinine: 2.8 mg/dL (H) 05/21/242010 Estimated creatinine clearance: 29.1 mL/min (A) Assessment & Plan IMPRESSION : Principal Problem: Acute blood loss anemia Active Problems: Depression with anxiety ESRD (end stage renal disease) on dialysis ([facility]) Chest pain Bleeding hemorrhoids CAD (coronary artery disease) HFrEF (heart failure with reduced ejection fraction) ([facility]) Hyperkalemia S/P primary angioplasty with coronary stent Resolved Problems: * No resolved hospital problems. * DIFFERENTIAL DIAGNOSIS AND PLAN OF CARE: Acute blood loss anemia Concern for hemorrhoidal bleeding Hgb drop from baseline of 9-11 to 7 at [facility]. Received 1U pRBC prior to transfer. Likely 2/2 AoCKD in combination with acute blood loss. Hgb goal of 8-9 due to active cardiac disease that is being managed procedurally. - CBC Q12h, type & screen - IV PPI bid - Clear liquid diet today, NPO after midnight tomorrow - Progress diet after colonoscopy - GI will do colonoscopy today - Follow up recommendations from GI following colonoscopy Chest pain CAD s/p ARIEL to rPDA, BAG SHAKER of LAD HFrEF (40-45%) Chest pain is sharp, midsternal, constant, and does not have any cardiac features. Cardiology felt that chest pain and acute blood loss anemia in a patient with CAD coupled with elevated but flat troponins likely suggest a type 2 MD (demand injury), although changes to R wave progression may represent ongoing myocardial damage, no indication for acute intervention. - Formal TTE pending read - Discontinue morphine - Increase dose of Metoprolol to 50 mg BID - Add Amlodipine 2.5 - Continue CASH REGISTER OPERATOR ASA 81 mg daily, clopidogrel 75 mg daily - Patient was taking rosuvastatin 20 mg daily, but it is renally cleared and levels might be unpredictable in dialysis - Switch to atorvastatin 80 mg daily to maintain high intensity - Cardiology consulted, appreciate recommendations - Consider transfusion of additional unit PRBC to improve oxygen delivery to heart - Troponin 70s at [facility] but 176 here, trend Q6h ESRD on MWF dialysis Hyperkalemia No missed dialysis sessions. - Continue CASH REGISTER OPERATOR cinacalcet 90mg daily, phoslo 2g TID - Dialysis today per nephrology - K 6.1 on BMP today, EKG without hyperkalemia changes - Given 20 mg Lokelma, recheck K after dialysis Chronic: Bipolar disorder: c/w CASH REGISTER OPERATOR bupropion 75mg BID, carbamazepine 200mg BID, Ativan PRN Pain: c/w CASH REGISTER OPERATOR gabapentin 200mg BID Global: Diet: Clear liquid diet today, NPO after midnight tomorrow for colonoscopy Bowel regimen: Miralax BID DVT/VTE prophylaxis: Heparin with dialysis Lines/drains/access: Bilateral AV fistula, 2x peripheral IV Consults following: Cardiology, nephrology, GI Code status: FULL Disposition: Keep admitted Barriers to discharge: Troponin elevation, acute bleeding CODE STATUS: Full Code EXPECTED DISCHARGE DATE: 2 days or more The patient and plan were discussed with attending physician DO Kari Nagel MS3 Lewis Langford MD Internal Medicine Resident Associated attestation - Harrison Avila DO - 05/22/2024 2:35 PM EDT I attest that I have reviewed the student note and that the components of the history, the physicalexam, and the assessment and plan documented were performed in my presence with the student where Iverified the documentation and performed (or re-performed) the exam and medical decision making. I spent a total of 30 minutes coordinating, documenting, and providing care for this patient excluding time spent in the performance of separately billed services or time spent by another provider/QHP. Acute blood loss anemia on anemia of chronic disease s/p transfusion, follow hgb, likely for lower GI bleed BRBPR for colonoscopy today Chest pain- likely noncardiac although with known CAD at high risk, troponin's are trending down, appreciate cardiology help and adjust medications per the input, avoid morphine ESRD on HD * Lewis Langford MD - 05/21/2024 1:29 PM EDT PROGRESS NOTE - Resident - Medicine [address] [address] Name: Alexandra Arguello Location: [facility] B335/A Date: 05/21/2024 Time: 1:29 PM Admission date: 05/20/2024. HD 1 Summary: Patient is a 38-year-old female with PMHx of ESRD 2/2 FSGS on hemodialysis MWF since 2016,CAD s/p rPDA stent at [facility] on 05/07/2024, also found to have LAD chronic total occlusion, newly diagnosed HFmrEF, T2DM not on insulin, who presented to [facility] ED for bright red blood per rectum for 1 month, substernal chest pain for 1 month, and orthopnea for 2 weeks, found to have Hgb of 7 s/p 1 unit PRBC, transferred, pending GI evaluation for [facility] B335/A INTERVAL HISTORY: Admitted last night, see HPI for full course of events This morning, patient still having 8/10 chest pain, substernal, nonradiating, nonpleuritic, unchanged from baseline. She has had continued rectal bleeding. Denies SOB, abdominal pain, N/V. Patient has only had clear liquids all day on 05/20. ROS: Review of systems is complete and negative unless otherwise stated above in the HPI. Objective PHYSICAL EXAMINATION: Most Recent Vital Signs: BP: 190 mmHg/89 mmHg (05/21/24 1217) Pulse: 75 (05/21/24 1217) Resp: 20 (05/21/24 1208) Temp: 36.89 C (05/21/24 1208) Temp Summary: Temp Min: 36.5 C (97.7 F) Max: 37 C (98.6 F) SpO2: 100 % (05/21/24 1039) O2 flow rate: Supplemental O2 Delivery: Room Air, None (05/21/24 1130) Constitutional: no acute distress, resting comfortably in bed, speaking in full sentences HENT: NCAT, MMM, PERRLA Eyes: sclera and conjunctiva normal Neck: supple, normal range of motion CV: normal rate and rhythm, 2/6 midsystolic crescendo-decrescendo murmur loudest at base of heart Chest: normal respiratory effort, lungs clear to auscultation Abdomen: normal: soft, bowel sounds normal, no masses, tenderness or organomegaly Extremities: bilateral AV fistulas on upper arms, no clubbing, cyanosis, or edema, otherwise grossly normal, warm, and dry Neuro: AAOx3, no obvious deficits STUDIES: Labs and other studies reviewed with pertinent findings noted below: Cr 5.2, BUN 37, K 6.1 this morning Troponin 176 from 70s in [facility] Hgb stable at 8.7 since transfer No intake or output data in the 24 hours ending 05/21/24 1329 Net IO Since Admission: No IO data has been entered for this period [05/21/24 1030] Wt Readings from Last 5 Encounters: 05/21/24 81.2 kg (179 lb 0.2 oz) 04/28/24 81.3 kg (179 lb 3.2 oz) 02/19/24 77.7 kg (171 lb 4.8 oz) 02/06/24 77.1 kg (170 lb) 12/24/23 75.8 kg (167 lb) Serum creatinine: 5.2 mg/dL (H) 05/21/24 0912 Estimated creatinine clearance: 15.8 mL/min (A) Assessment & Plan IMPRESSION : Principal Problem: Acute blood loss anemia Active Problems: Depression with anxiety ESRD (end stage renal disease) on dialysis ([facility]) Chest pain Bleeding hemorrhoids CAD (coronary artery disease) HFrEF (heart failure with reduced ejection fraction) ([facility]) Resolved Problems: * No resolved hospital problems. * DIFFERENTIAL DIAGNOSIS AND PLAN OF CARE: Acute blood loss anemia Concern for hemorrhoidal bleeding Hgb drop from baseline of 9-11 to 7 at [facility]. Received 1U pRBC prior to transfer. Likely 2/2 AoCKD in combination with acute blood loss. Hgb goal of 8-9 due to active cardiac disease that is being managed procedurally. - CBC Q12h, type & screen - IV PPI bid - Clear liquid diet today, NPO after midnight tomorrow - GI will do colonoscopy tomorrow Chest pain CAD s/p ARIEL to rPDA, BAG SHAKER of LAD HFrEF (40-45%) Chest pain is sharp, midsternal, constant, and does not have any cardiac features. Cardiology felt that chest pain and acute blood loss anemia in a patient with CAD coupled with elevated but flat troponins likely suggest a type 2 MD (demand injury), although changes to R wave progression may represent ongoing myocardial damage, no indication for acute intervention. - Formal TTE pending read - PRN pain regimen as ordered (morphine 0.5mg q4 prn moderate, 1mg q4 prn severe) - Continue CASH REGISTER OPERATOR ASA 81 mg daily, clopidogrel 75 mg daily - Patient was taking rosuvastatin 20 mg daily, but it is renally cleared and levels might be unpredictable in dialysis - Switch to atorvastatin 80 mg daily to maintain high intensity - Continue CASH REGISTER OPERATOR metoprolol succinate 25mg BID - Cardiology consulted, appreciate recommendations - Consider transfusion of additional unit PRBC to improve oxygen delivery to heart - Troponin 70s at [facility] but 176 here, trend Q6h ESRD on MWF dialysis Hyperkalemia No missed dialysis sessions. - Continue CASH REGISTER OPERATOR cinacalcet 90mg daily, phoslo 2g TID - Dialysis today per nephrology - K 6.1 on BMP today, EKG without hyperkalemia changes - Given 20 mg Lokelma, recheck K after dialysis Chronic: Bipolar disorder: c/w CASH REGISTER OPERATOR bupropion 75mg BID, carbamazepine 200mg BID, Ativan PRN Pain: c/w CASH REGISTER OPERATOR gabapentin 200mg BID Global: Diet: Clear liquid diet today, NPO after midnight tomorrow for colonoscopy Bowel regimen: Miralax BID DVT/VTE prophylaxis: Heparin with dialysis Lines/drains/access: Bilateral AV fistula, 2x peripheral IV Consults following: Cardiology, nephrology, GI Code status: FULL Disposition: Keep admitted Barriers to discharge: Troponin elevation, acute bleeding CODE STATUS: Full Code EXPECTED DISCHARGE DATE: 2 days or more The patient and plan were discussed with attending physician DO Lewis Nagel MD Internal Medicine Resident Associated attestation - Harrison Avila DO - 05/21/2024 4:57 PM EDT I saw and evaluated the patient today. I have reviewed the resident/fellow physician note and agree. Acute blood loss anemia on chronic anemia- s/p PRBC, GI to do colonoscopy in AM Chest pain s/p recent cath to be evaluated by cardiology ESRD on HD with high K for HD today documented in this encounter H&P Notes * Hema Segovia MD - 05/22/2024 1:11 PM EDT Endoscopy Pre-Procedure Assessment Name: Alexandra Arguello Date: 05/22/2024 Time: 1:11 PM Procedure(s): Colonoscopy; with Indication(s) of evaluation of GI blood loss or iron- deficiency anemia Endoscopy Pre-Procedure Assessment: Prior to the procedure, the patient is identified. The patient's history, medications and allergieshave been reviewed. The patient is competent. The risks and benefits of the proposed procedure and the planned sedation have been discussed with the patient. All questions have been answered and informed consent for the procedure has been obtained. Prior to Admission medications Medication Sig Last Dose Discont. Aspirin 81 MG Oral Tablet Chewable Take 1 Tablet by mouth in the morning. 05/20/2024 Clopidogrel Bisulfate 75 MG Oral Tablet (Plavix) Take 1 Tablet by mouth in the morning. 05/20/2024 Metoprolol Succinate ER 25 MG Oral Tablet Extended Release 24 Hour (toPROL XL) Take 1 Tablet by mouth in the morning and 1 Tablet before bedtime. 05/20/2024 Polyethylene Glycol 3350 17 GM Oral Packet (MiraLax) Take 1 Packet by mouth in the morning and 1 Packet before bedtime. 05/20/2024 Rosuvastatin Calcium 20 MG Oral Tablet (Crestor) Take 1 Tablet by mouth every evening. 05/19/2024 Gabapentin 100 MG Oral Capsule (Neurontin) Take 2 Capsules by mouth in the morning and 2 Capsules before bedtime. 05/20/2024 Varenicline Tartrate 1 MG Oral Tablet Take 1 Tablet by mouth in the morning and 1 Tablet before bedtime. As directed on box.. 05/20/2024 hydrOXYzine HCl 25 MG Oral Tablet TAKE 1 TABLET BY MOUTH EVERY 6 HOURS NEEDED FOR ANXIETY Past Week buPROPion HCl ER (XL) 150 MG Oral Tablet Extended Release 24 Hour (Wellbutrin XL) Take 1 Tablet by mouth in the morning. Increase to 1 tab twice daily after 2 weeks. Patient taking differently: Take 1 Tablet by mouth in the morning. Pt only taking 1 per day.. 05/20/2024 Albuterol Sulfate HFA 108 (90 Base) MCG/ACT Inhalation Aerosol Solution Inhale 2 Puffs by mouth every 4 hours as needed for Wheezing. Past Month Mirtazapine 7.5 MG Oral Tablet (Remeron) Take 1 Tablet by mouth at bedtime. 05/19/2024 Cinacalcet HCl 90 MG Oral Tablet (Sensipar) Take 1 tablet by mouth daily with dinner 05/19/2024 carBAMazepine ER 200 MG Oral Tablet Extended Release 12 Hour (Tegretol-Xr) Take 1 Tablet by mouth 2times a day in the morning and at bedtime. 05/20/2024 LORazepam 0.5 MG Oral Tablet (Ativan) TAKE 1 TABLET BY MOUTH EVERY 8 HOURS NEEDED FOR PANIC ATTACKS AND BEFORE DIALYSIS Strength: 0.5 mg 05/20/2024 Omeprazole 20 MG Oral Capsule Delayed Release (PriLOSEC) Take 1 Capsule by mouth in the morning. 1 hour before the first meal of the day. 05/20/2024 Albuterol Sulfate (2.5 MG/3ML) 0.083% Inhalation Nebulization Solution (Proventil) Inhale 1 Vial via nebulizer every 4 hours as needed for Wheezing. Past Month Calcium Acetate (Phos Binder) 667 MG Oral Capsule (Phoslo) Take 3 Caps by mouth three times a day with meals. 05/20/2024 Lidocaine 5 % External Ointment Apply topically to affected area 4 times a day as needed for Pain or Hemorrhoids. medroxyPROGESTERone Acetate 150 MG/ML Intramuscular Suspension Prefilled Syringe (Depo-Provera) INJECT 150 MG INTRAMUSCULARLY (INTO A LARGE MUSCLE) ONCE EVERY 3 MONTHS Dexcom G7 Flanger Device USE DAILY TO CHECK BLOOD SUGARS CONTINUOUSLY (DX CODE E11.9) Dexcom G7 Sensor Use to check sugars continuously. E 11.9 change every 10 days Benzonatate 100 MG Oral Capsule Take 2 Capsules by mouth 3 times a day as needed for Cough. OneTouch Verio In Vitro Strip (Glucose Blood) Use up to 4 times a day E11.9 OneTouch Delica Plus [id number] use 1 LANCET to TEST BLOOD SUGAR four times a day. DX E11.9 Ondansetron HCl 4 MG Oral Tablet Take by mouth 1 Tablet every 6 hours as needed for Nausea. Dulera 200-5 MCG/ACT Inhalation Aerosol (Mometasone Furo-Formoterol Fum) Inhale by mouth 2 Puffs inthe morning AND 2 Puffs before bedtime. Patient not taking: Reported on 05/20/2024 Not Taking Compressor Nebulizer Inhale via nebulizer. Use as directed.Dx J45.901 (asthma exacerbation) OneTouch Verio w/Device Kit Use up to 4 times a day E11.9 Renal Vitamin 0.8 MG Oral Tablet Take 1 Tablet by mouth daily. Review of patient's allergies indicates: Allergen Reactions Amoxicillin Other reaction(s): VOMITING Cefaclor Rash Cephalosporins Rash BP 129/50 | Pulse 71 | Temp 36.3 C (97.3 F) (Tympanic) | Resp 12 | Ht 1.676 m (5' 6") | Wt 80 kg (176 lb 5.9 oz) | SpO2 97% | BMI 28.47 kg/m | BSA 1.93 m Physical Exam: Mental Status Examination: alert and oriented. Airway Examination: normal oropharyngeal airway and neck mobility. Respiratory Examination: clear to auscultation. CV Examination: normal. ASA Grade: III Abdomen: negative This patient has undergone a preprocedural evaluation. A determination has been made to proceed with the planned procedure under [facility] procedural guidelines and the [facility] Non-Emergent, Elective Medical Services and Treatment Recommendations (published on 12-01-19). The community and hospital prevalence of COVID-19 has been discussed as well as this patient's specific risks associated with SARS-CoV-19 infection. Based upon the clinical acuity and patient-specific care considerations, this procedure is deemed a Tier III - Procedures at little or no risk for clinical deterioration (example - cosmetic). After reviewing the risks and benefits, the patient is deemed in satisfactory condition to undergo the procedure. The anesthesia plan is to use general anesthesia. 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 At that time she presented to [facility] where labs were concerning for hemoglobin 7, MCV 107, K 5.4, troponin I hs 71, 73. At that time she received 1 unit PRBCs he was transferred to [facility] for further evaluation. Today patient states that she has had sharp, 9/10 nonradiating midsternal chest pain for the past month. The pain is constant and worse with dialysis. It does not improve with Tylenol, nitroglycerin,tramadol. She also endorses a 2 week history of orthopnea that improves with sessions of dialysis. Patient also endorses a month long history of constant bleeding from her hemorrhoids. States that she is having bleeding with wiping and with bowel movements. She presented to the ED for this same issue at [facility] on 05/19 & 05/20. Per chart review: Records from [facility] show that the patient was admitted from 04/29-04/30 for chest pain. She was also admitted again on 05/05 2 05/10 where she underwent left heart catheterization on 05/07 with placement of stent in right PDA. Per Cardiology report, patient had a BAG SHAKER of the LAD at that time as well that was left for planned intervention on 06/08 at [facility]. Hemoglobin was down to 7.5 that admissionprompting transfusion of 1 unit PRBC on 05/06. Patient was diagnosed with a new heart failure reduced ejection fraction 35-40% and new wall motionabnormalities on echo. Echo revealed severe hypokinesis of apex and mid septal/inferior wall. At that time metoprolol, aspirin, Plavix, statin were initiated. They live in [place]. Lives near grandparents and lots of family nearby. They wishe to be Code Status: Full Code The preferred decision maker in the event that they are unable is her mother Cony. Subjective ROS: Complete ROS conducted with all findings negative unless stated above. Past Medical History: Diagnosis Date Anxiety and [...] SITE performed by Carmelo Ramos MD at [facility] AV ACCESS, DIRECT ANASTOMOSIS Right 01/03/2021 ARTERIOVENOUS ANASTOMOSIS OPEN DIRECT ANY SITE performed by Carmelo Ramos MD at OR [facility] DELIVERY DELIVERY ONLY W/ 10/08/2011 DELIVERY AND CARE performed by ANDRA SMITH at OB [facility] COLONOSCOPY, DIAGNOSTIC (RECTUM) 10/01/2017 adenomatous polyp, diverticulosis, repeat 5 yrs/[facility] COLONOSCOPY, DIAGNOSTIC (RECTUM) 03/29/2023 poor prep, repeat / [facility] CORONARY ANGIOGRAPHY W/LEFT HEART CATH 01/26/2017 CORONARY ANGIOGRAPHY W/LEFT HEART CATH performed by Andra Velasquez MD at CARDIAC LABS [facility] CYSTOSCOPY 03/17/2014 With stent removal EGD, FLEXIBLE, DIAGNOSTIC 09/11/2022 mild gastric irriation on bx / [facility] EGD, FLEXIBLE,W/ENDOSCOPIC US 06/14/2017 mild-mod gastric inflammation/[facility] INSER MARI CAT,W/O PUMP;5YR/OLD 11/05/2014 INSERT TUNNELED CENTRAL VENOUS CATHETER AGE 5 OR OLDER performed by Danny Godinez MD at RADIOLOGY [facility] INTRO CATH DIALYSIS CIRCUIT DX ANGIOGRAPHY FLUORO S&I Left 02/25/2020 AV FISTULOGRAM DIAGNOSTIC performed by Theo Huang MD at [facility] INTRO CATH DIALYSIS CIRCUIT DX ANGIOGRAPHY FLUORO S&I Right 02/06/2024 AV FISTULOGRAM DIAGNOSTIC performed by Acosta Hope MD at [facility] INTRO CATH DIALYSIS CIRCUIT W/TRANSCATH PLACEMENT IV STENT Right 05/22/2022 AV FISTULOGRAM STENT & PERIPHERAL ANGIOPLASTY performed by Carmelo Ramos MD at OR [facility] INTRO CATH DIALYSIS CIRCUIT W/TRANSLUM BALLOON ANGIOPLASTY Left 02/25/2020 AV FISTULOGRAM & PERIPHERAL ANGIOPLASTY performed by Theo Huang MD at OR [facility] INTRO CATH DIALYSIS CIRCUIT W/TRANSLUM BALLOON ANGIOPLASTY Left 09/29/2020 AV FISTULOGRAM & PERIPHERAL ANGIOPLASTY performed by Carmelo Ramos MD at OR [facility] INTRO CATH DIALYSIS CIRCUIT W/TRANSLUM BALLOON ANGIOPLASTY Left 11/02/2020 AV FISTULOGRAM & PERIPHERAL ANGIOPLASTY performed by Carmelo Ramos MD at OR [facility] INTRO CATH DIALYSIS CIRCUIT W/TRANSLUM BALLOON ANGIOPLASTY Right 06/15/2021 AV FISTULOGRAM & PERIPHERAL ANGIOPLASTY performed by Balbir Santiago MD at OR [facility] INTRO CATH DIALYSIS CIRCUIT W/TRANSLUM BALLOON ANGIOPLASTY Right 04/16/2023 AV FISTULOGRAM & PERIPHERAL ANGIOPLASTY performed by Carmelo Ramos MD at [facility] IOF CT GUIDED NEEDLE BIOPSY 05/18/2013 CT GUIDED NEEDLE ASPIRATION BIOPSY performed by Tremaine Rodríguez PA-C at RADIOLOGY [facility] KNEE ARTHROSCOPY, DIAGNOSTIC 10/27/2008 Knee Scope,Diagnostic LAPAROSCOPY; CHOLECYSTECTOMY N/A 12/18/2016 LAPAROSCOPIC CHOLECYSTECTOMY [facility] DR. DIAZ 12/18/16 LASIK SURGERY 1987 LIGATE/CUT OVIDUCT(S) 10/10/2011 REMOV MARI BENJI CATH W/O PORT 11/24/2014 REMOVAL OF TUNNELED CENTRAL VENOUS CATHETER performed by Danny Godinez MD at RADIOLOGY [facility] REMOV MARI BENJI CATH W/O PORT Left 09/29/2020 REMOVAL OF TUNNELED CENTRAL VENOUS CATHETER performed by Carmelo Ramos MD at OR [facility] RENAL BIOPSY, PERCUTANEOUS (TROCAR/NEEDLE) N/A 11/16/2014 RENAL BIOPSY PERCUTANEOUS performed by Fer Sharp MD at [facility] RENAL BIOPSY, PERCUTANEOUS (TROCAR/NEEDLE) N/A 11/23/2014 RENAL BIOPSY PERCUTANEOUS performed by Fer Sharp MD at [facility] THROMBECTOMY, PERCUT, THROMBOLYTIC INJECT Left 09/29/2020 PERCUTANEOUS MECHANICAL VENOUS THROMBECTOMY performed by Carmelo Ramos MD at [facility] TRANSCATH PLACMENT IV STENT CENTRAL DIALYSIS SEGMENT W/IMAGING Left 09/29/2020 INTRAVASCULAR STENT CENTRAL DIALYSIS SEGMENT performed by Carmelo Ramos MD at OR [facility] TRANSLUMINAL BALLOON ANGIOPLASTY CENTRAL DIALYSIS SEGMENT W/IMAGING 02/06/2024 ANGIOPLASTY CENTRAL DIALYSIS SEGMENT performed by Acosta Hope MD at OR [facility] TRANSPLANTATION OF KIDNEY 02/18/2014 RENAL TRANSPLANT performed by Violeta Salinas MD at OR [facility] Family History Problem Relation Name Age of Onset Diabetes Mother Cony Thyroid Disorder Mother Cony hyperthyroidism Gastro-intestinal disorder Father Ivan crohn's Mental Disorder Father Ivan depression - suicide Hypertension Grandmother (Maternal) Vickie Hypertension Sister Kylah Thyroid Disorder Sister Kylah mcdaniel hypothyroidism Other (hyperlipidemia [Other]) Grandfather (Maternal) Heart Disorder Brother Ivan age 19 months - only 2 working chambers; also with esophageal problems Other (?lupus [Other]) Grandmother (Paternal) Social History Tobacco Use Smoking status: Former Current packs/day: 0.00 Average packs/day: 0.5 packs/day for 11.0 years (5.5 ttl pk-yrs) Types: Cigarettes Start date: 12/2010 Quit date: 12/2021 Years since quittin.4 Smokeless tobacco: Never Tobacco comments: 02/19/2024 smokes 1 pack per day, declined pamphlet Vaping Use Vaping status: Never Used Substance Use Topics Alcohol use: No Drug use: No MEDICATIONS: Prior to admission medications have been reviewed. ALLERGIES: Amoxicillin, Cefaclor, and Cephalosporins Objective PHYSICAL EXAMINATION: Most Recent Vital Signs: BP: 153 mmHg/73 mmHg (05/20/242208) Pulse: 78 (05/20/242208) Resp: 19 (05/20/242208) Temp: 36.5 C (05/20/242208) Temp Summary: Temp Min: 36.5 C (97.7 F) Max: 36.5 C (97.7 F) SpO2: 100 % (05/20/242208) O2 flow rate: Supplemental O2 Delivery: Room Air, None (05/20/242143) General: NAD HEENT: normocephalic, atraumatic, non-icteric sclera, moist mucous membranes Neck: supple, no JVD Heart: RRR, 1/6 systolic crescendo decrescendo murmur best heard at the LUSB Lungs: normal effort, CTA bilaterally, no wheezes, no crackles Abdomen: soft, nondistended, nontender Extremities: no LE edema bilaterally, intact peripheral pulses, right upper extremity with AV fistula with palpable thrill Skin: warm, dry, intact, no rashes, no skin lesions Neurologic: AAOx3, no focal deficits, following commands, moving all extremities spontaneously, answering questions appropriately Psych: normal affect Peripheral Line Arm 20 Gauge (Active) Number of days: 1 Peripheral Line Foot 20 Gauge (Active) Number of days: 1 Peripheral Line (Active) Number of days: Peripheral Line (Active) Number of days: LABS & IMAGING: None Assessment & Plan Principal Problem: Acute blood loss anemia (POA: Yes) Active Problems: Depression with anxiety (POA: Yes) ESRD (end stage renal disease) on dialysis (HCC) (POA: Yes) Chest pain (POA: Yes) Bleeding hemorrhoids (POA: Yes) CAD (coronary artery disease) (POA: Yes) HFrEF (heart failure with reduced ejection fraction) (HCC) (POA: Yes) POA = Present On Admission Alexandra Arguello is a 38 year oldbkd-rrxq-dar female with a past medical history as above who is admitted for further workup and treatment of acute blood loss anemia and chest pain. Overall appears to be stable after transfusion, currently with 10/10 chest pain. Chest pain exhibits noncardiac featuresand can be managed medically while acute blood loss anemia is worked up. Plan is as follows: Acute blood loss anemia Concern for hemorrhoidal bleeding Hgb drop from baseline of 9-11 to 7 at [facility]. Received 1U pRBC prior to transfer. Hgb goal of8 due to active cardiac disease that is being managed procedurally. - CBC now and q6h, type & screen - IV PPI bid - NPO @ 2400 except meds - GI consult for anoscopy vs colonoscopy, appreciate recs on hemorrhoidal intervention Chest pain CAD s/p ARIEL to rPDA, BAG SHAKER of LAD HFrEF (40-45%) Chest pain is sharp, midsternal, constant, and does not have any cardiac features. Discussed with Cardiology who felt that chest pain and acute blood loss anemia in a patient with CAD coupled with elevated but flat troponins likely suggest a type 2 MD (demand injury). - Formal TTE - PRN pain regimen as ordered (morphine 0.5mg q4 prn moderate, 1mg q4 prn severe) - Continue DAPT as ordered given recent stent; if needed can hold for as minimally as possible - Consider cardiology consult if needed once acute blood loss anemia has been worked up - Continue CASH REGISTER OPERATOR metoprolol, crestor ESRD on MWF dialysis No missed dialysis sessions - CMP now - Resume CASH REGISTER OPERATOR cinacalcet, phoslo - Nephrology consult for dialysis Chronic problems: - Mood: CASH REGISTER OPERATOR wellbutrin, carbamazepine - Pain: CASH REGISTER OPERATOR gabapentin DVT prophylaxis: SCDs Diet: NPO Bowel regimen: miralax - Last Bowel Movement: 05/20/24 (as per patient) (05/20/242) Patient was discussed with attending physician, Janusz Del Castillo, at time of admission. Associated attestation - Janusz Del Castillo MD - 05/21/2024 5:08 PM EDT I saw and evaluated the patient today. I have reviewed the resident/fellow physician note and agree. I spent a total of 15 minutes coordinating, documenting, and providing care for this patient excluding time spent in the performance of separately billed services or time spent by another provider/QHP. documented in this encounter Procedure Notes * Harrison Avila DO - 05/22/2024 1:09 PM EDTAssociated Order(s): COLONOSCOPY [facility] Patient Name: Alexandra Arguello Procedure Date: 05/22/2024 1:09 PM Date of : 1985 Admit Type: Inpatient Note Status: Finalized Date of : 1985 Admit Type: Inpatient Age: 38 Room: Endo - Room 4 Gender: Female Note Status: Finalized Procedure: Colonoscopy Indications: Hematochezia Providers: Hema Segovia MD (Doctor), Yobany Riggins MD (Fellow), Kaden Fernández RN Patient Profile: This is a 38 year old female. Refer to note in patient chart for documentation of history and physical. Referring MD: Harrison Avila DO, Bradley Confer DO Medicines: Monitored Anesthesia Care Complications: No immediate complications. Procedure: Pre-Anesthesia Assessment: - Wendell Protocol: - Pre-procedure Verification: Prior to the procedure, the patient's identity was verified by full name, date of and medical record number. The patient's identity was verified on all pertinent medical records, including History and Physical and nursing assessment. Also prior to the procedure, a History and Physical was performed, and patient medications, allergies and sensitivities were reviewed. The patient's tolerance of previous anesthesia was reviewed. The patient is competent. The risks and benefits of the procedure and the sedation options and risks were discussed with the patient. All questions were answered and informed consent was obtained. - Time-Out: Prior to the start of the procedure, the patient's identification, proposed procedure, accurate signed consent, correctly labeled images and records, and need for prophylactic antibiotics were verified by the physician, the nurse and the port engineer in the pre-procedure area in the procedure room. - The supervising physician was present for the entire procedure from scope insertion until scope withdrawal. After I obtained informed consent, the scope was passed under direct vision. All instruments were visually inspected immediately before and after removal from the patient to ensure they are fully intact. Throughout the procedure, the patient's blood pressure, pulse, and oxygen saturations were monitored continuously. The CF H180AL Colonoscope([id number]) was introduced through the anus and advanced to the cecum, identified by appendiceal orifice and ileocecal valve. The quality of the bowel preparation was good. Findings & Specimens: The entire examined colon appeared normal. External hemorrhoids were found during perianal exam. The hemorrhoids were small. An anal fissure was found on perianal exam. Impression: - The entire examined colon is normal. - External hemorrhoids. - Anal fissure found on perianal exam. - No specimens collected. thrombosed external hemorrhoid with two small holes, one with very mild spontaneous oozing nonbleeding anal fissure otherwise unremarkable exam to cecum Recommendation: - Return patient to [facility] for ongoing care. - Repeat colonoscopy. Hema Segovia MD 05/22/2024 2:13:15 PM This report has been signed electronically. Yobany Riggins MD * Braydon Kelley DO - 05/21/2024 12:33 PM EDTAssociated Order(s): EKG REASON FOR STUDY: Notify provider if obtaining EKG;Chest pain CONCLUSIONS: Normal sinus rhythm High QRS voltage may be normal variant or due to lve Anterolateral infarct Prolonged QT interval or tu fusion, consider myocardial disease, electrolyte imbalance, or drug effects Ventricular Rate: 74 Atrial Rate: 74 TX Interval: 160 QRS Duration: 102 QT/QTc: 458/508 ms P-R-T [place]: 45 : -28 : 16 degrees documented in this encounter Consult Notes * Gerson Banegas MD - 05/21/2024 3:56 PM EDTAssociated Order(s): CARDIOLOGY CONSULT IP CONSULT - Cardiology [address] [id number] Name: Alexandra Arguello Location: [facility] B335/A Date: 05/21/2024 Time: 1:23 PM REQUESTING SERVICE: Medicine REASON FOR CONSULT: "Rectal bleeding in setting of newly diagnosed CAD and HFmrEF" PRESENTING PROBLEM: Alexandra Arguello [facility] is seen in consultation for [...] stenting with multiple balloons Active cardiac meds CASH REGISTER OPERATOR: ASA, Plavix, Metoprolol succinate 25 mg BID, Crestor 20 mg PAST MEDICAL HISTORY: Past Medical History: Diagnosis Date Anxiety and depression DM Type 2 causing Renal Dz ESRD (end stage renal disease) ([facility]) H/O kidney transplant 02/18/2014 HTN, goal below 140/90 Hx laparoscopic cholecystectomy 12/18/2016 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 Metabolic acidosis 11/05/2014 Migraine without aura, intractable Ovarian cyst Pre-transplant evaluation for kidney transplant 02/04/2014 Tobacco abuse PAST SURGICAL HISTORY: Past Surgical History: Procedure Laterality Date AV ACCESS, DIRECT ANASTOMOSIS Right 04/28/2015 ARTERIOVENOUS ANASTOMOSIS OPEN DIRECT ANY SITE performed by Carmelo Ramos MD at [facility] AV ACCESS, DIRECT ANASTOMOSIS Right 01/03/2021 ARTERIOVENOUS ANASTOMOSIS OPEN DIRECT ANY SITE performed by Carmelo Ramos MD at [facility] DELIVERY DELIVERY ONLY W/ 10/08/2011 DELIVERY AND CARE performed by ANDRA SMITH at [facility] COLONOSCOPY, DIAGNOSTIC (RECTUM) 10/01/2017 adenomatous polyp, diverticulosis, repeat 5 yrs/[facility] COLONOSCOPY, DIAGNOSTIC (RECTUM) 03/29/2023 poor prep, repeat / [facility] CORONARY ANGIOGRAPHY W/LEFT HEART CATH 01/26/2017 CORONARY ANGIOGRAPHY W/LEFT HEART CATH performed by Andra Velasquez MD at CARDIAC LABS [facility] CYSTOSCOPY 03/17/2014 With stent removal EGD, FLEXIBLE, DIAGNOSTIC 09/11/2022 mild gastric irriation on bx / [facility] EGD, FLEXIBLE,W/ENDOSCOPIC US 06/14/2017 mild-mod gastric inflammation/[facility] INSER MARI CAT,W/O PUMP;5YR/OLD 11/05/2014 INSERT TUNNELED CENTRAL VENOUS CATHETER AGE 5 OR OLDER performed by Danny Godinez MD at RADIOLOGY [facility] INTRO CATH DIALYSIS CIRCUIT DX ANGIOGRAPHY FLUORO S&I Left 02/25/2020 AV FISTULOGRAM DIAGNOSTIC performed by Theo Huang MD at OR [facility] INTRO CATH DIALYSIS CIRCUIT DX ANGIOGRAPHY FLUORO S&I Right 02/06/2024 AV FISTULOGRAM DIAGNOSTIC performed by Acosta Hope MD at OR [facility] INTRO CATH DIALYSIS CIRCUIT W/TRANSCATH PLACEMENT IV STENT Right 05/22/2022 AV FISTULOGRAM STENT & PERIPHERAL ANGIOPLASTY performed by Carmelo Ramos MD at OR [facility] INTRO CATH DIALYSIS CIRCUIT W/TRANSLUM BALLOON ANGIOPLASTY Left 02/25/2020 AV FISTULOGRAM & PERIPHERAL ANGIOPLASTY performed by Theo Huang MD at OR [facility] INTRO CATH DIALYSIS CIRCUIT W/TRANSLUM BALLOON ANGIOPLASTY Left 09/29/2020 AV FISTULOGRAM & PERIPHERAL ANGIOPLASTY performed by Carmelo Ramos MD at OR [facility] INTRO CATH DIALYSIS CIRCUIT W/TRANSLUM BALLOON ANGIOPLASTY Left 11/02/2020 AV FISTULOGRAM & PERIPHERAL ANGIOPLASTY performed by Carmelo Ramos MD at OR [facility] INTRO CATH DIALYSIS CIRCUIT W/TRANSLUM BALLOON ANGIOPLASTY Right 06/15/2021 AV FISTULOGRAM & PERIPHERAL ANGIOPLASTY performed by Balbir Santiago MD at OR [facility] INTRO CATH DIALYSIS CIRCUIT W/TRANSLUM BALLOON ANGIOPLASTY Right 04/16/2023 AV FISTULOGRAM & PERIPHERAL ANGIOPLASTY performed by Carmelo Ramos MD at OR [facility] IOF CT GUIDED NEEDLE BIOPSY 05/18/2013 CT GUIDED NEEDLE ASPIRATION BIOPSY performed by Tremaine Rodríguez PA-C at RADIOLOGY [facility] KNEE ARTHROSCOPY, DIAGNOSTIC 10/27/2008 Knee Scope,Diagnostic LAPAROSCOPY; CHOLECYSTECTOMY N/A 12/18/2016 LAPAROSCOPIC CHOLECYSTECTOMY [facility] DR. DIAZ 12/18/16 LASIK SURGERY 1987 LIGATE/CUT OVIDUCT(S) 10/10/2011 REMOV MARI BENJI CATH W/O PORT 11/24/2014 REMOVAL OF TUNNELED CENTRAL VENOUS CATHETER performed by Danny Godinez MD at RADIOLOGY [facility] REMOV MARI BENJI CATH W/O PORT Left 09/29/2020 REMOVAL OF TUNNELED CENTRAL VENOUS CATHETER performed by Carmelo Ramos MD at OR [facility] RENAL BIOPSY, PERCUTANEOUS (TROCAR/NEEDLE) N/A 11/16/2014 RENAL BIOPSY PERCUTANEOUS performed by Fer Sharp MD at OR [facility] RENAL BIOPSY, PERCUTANEOUS (TROCAR/NEEDLE) N/A 11/23/2014 RENAL BIOPSY PERCUTANEOUS performed by Fer Sharp MD at OR [facility] THROMBECTOMY, PERCUT, THROMBOLYTIC INJECT Left 09/29/2020 PERCUTANEOUS MECHANICAL VENOUS THROMBECTOMY performed by Carmelo Ramos MD at OR [facility] TRANSCATH PLACMENT IV STENT CENTRAL DIALYSIS SEGMENT W/IMAGING Left 09/29/2020 INTRAVASCULAR STENT CENTRAL DIALYSIS SEGMENT performed by Carmelo Ramos MD at OR [facility] TRANSLUMINAL BALLOON ANGIOPLASTY CENTRAL DIALYSIS SEGMENT W/IMAGING 02/06/2024 ANGIOPLASTY CENTRAL DIALYSIS SEGMENT performed by Acosta Hope MD at OR [facility] TRANSPLANTATION OF KIDNEY 02/18/2014 RENAL TRANSPLANT performed by Violeta Salinas MD at OR [facility] FAMILY HISTORY: Family History Problem Relation Name [...] Alcohol use: No Drug use: No ALLERGIES: Amoxicillin, Cefaclor, and Cephalosporins PHYSICAL EXAMINATION: Most [...] ESRD (end stage renal disease) on dialysis ([facility]) Chest pain Bleeding hemorrhoids CAD (coronary artery disease) HFrEF (heart failure with reduced ejection fraction) ([facility]) Resolved Problems: * No resolved hospital problems. [...] of elevated troponin's (The troponin's (Bessy)obtained in [facility] were flat) . EKG with no acute ST or T wave abnormality , have worsening poor R wave progression which could be suggestive of ischemia/infarction, however variable lead placement can be confo unding cesar in females The troponin's (Bessy)obtained in [place] were flat. Suspect her chest painis likely [...] therapy. Patient is also known to have BAG SHAKER of left anterior descending artery for which [...] with any activity. However the patient has BAG SHAKER of left anterior descending artery which is [...] Interruption in dual antiplatelet therapy after complex BAG SHAKER intervention on left anterior descending artery can result in severe consequence. Thank you for allowing us to participate in the care of this patient * Kenneth Benjamin MD - 05/21/2024 8:46 AM EDTAssociated Order(s): NEPHROLOGY CONSULT IP CONSULT - Nephrology [facility] [id number] Name: Alexandra Arguello Location: [facility] B335/A Date: 05/21/2024 Time: 8:46 AM Hospital Day: 1 Reason for Consult: ESRD on IHD HPI: Alexandra Arguello is a 38 year old female with past history notable for ESRD secondary to FSGS-on IHD via RUE AVF - MWF schedule at [facility] with Dr Leah Esteban, HTN, T2DM, HFrEF 40-45% (TTE 2023), CAD s/p ARIEL to PDA 9/12/24, hx of hemorrhoids, anxiety and depression, was admitted to the hospital on 05/20/2024 as a transfer from [facility] ED where she presented with dizziness, chest pain and generalized weakness after her routine dialysis session which was terminated earlier due tosame complaints. She has history of noncompliance with her dialysis treatments. She has long history of constant bleeding from her hemorrhoids. Per review of records from [facility] she was admitted from 04/29-04/30 for chest pain. Admitted again on 05/05 to 05/10 when she underwent LHC on 05/07 with placement of stent in right PDA. Per Cardiology report, patient had a BAG SHAKER of the LAD at that time as well that was left for planned intervention on 06/08 at [facility]. Patient was diagnosed with a new heart failure reduced ejection fraction 35-40% and new wall motionabnormalities on echo. Echo revealed severe hypokinesis of apex and mid septal/inferior wall. At that time metoprolol, aspirin, Plavix, statin were initiated. Last dialysis session was done yesterday which was incomplete. On examination at bedside today, patient is lying comfortably in bed. She is maintaining sats on room air. She is maintaining BP without pressors. She still has chest pain which she says is persistent but is better than before. Denies shortness of breath, cough, fever, palpitation, dizziness, nausea, vomiting, diarrhea. She remains anuric. She has RUE swelling after recent AVF infiltration-awaiting fistulogram to be done after her cardiac procedure. Pertinent positives and negatives as documented in the HPI. All other systems are negative. 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 Metabolic acidosis 11/05/2014 Migraine without aura, intractable Ovarian cyst Pre-transplant evaluation for kidney transplant 02/04/2014 Tobacco abuse Past Surgical History: Procedure Laterality Date AV ACCESS, DIRECT ANASTOMOSIS Right 04/28/2015 ARTERIOVENOUS ANASTOMOSIS OPEN DIRECT ANY SITE performed by Carmelo Ramos MD at OR [facility] AV ACCESS, DIRECT ANASTOMOSIS Right 01/03/2021 ARTERIOVENOUS ANASTOMOSIS OPEN DIRECT ANY SITE performed by Carmelo Ramos MD at OR [facility] DELIVERY DELIVERY ONLY W/ 10/08/2011 DELIVERY AND CARE performed by ANDRA SMITH at OB [facility] COLONOSCOPY, DIAGNOSTIC (RECTUM) 10/01/2017 adenomatous polyp, diverticulosis, repeat 5 yrs/[facility] COLONOSCOPY, DIAGNOSTIC (RECTUM) 03/29/2023 poor prep, repeat / [facility] CORONARY ANGIOGRAPHY W/LEFT HEART CATH 01/26/2017 CORONARY ANGIOGRAPHY W/LEFT HEART CATH performed by Andra Velasquez MD at CARDIAC LABS [facility] CYSTOSCOPY 03/17/2014 With stent removal EGD, FLEXIBLE, DIAGNOSTIC 09/11/2022 mild gastric irriation on bx / [facility] EGD, FLEXIBLE,W/ENDOSCOPIC US 06/14/2017 mild-mod gastric inflammation/[facility] INSER MARI CAT,W/O PUMP;5YR/OLD 11/05/2014 INSERT TUNNELED CENTRAL VENOUS CATHETER AGE 5 OR OLDER performed by Danny Godinez MD at RADIOLOGY [facility] INTRO CATH DIALYSIS CIRCUIT DX ANGIOGRAPHY FLUORO S&I Left 02/25/2020 AV FISTULOGRAM DIAGNOSTIC performed by Theo Huang MD at OR [facility] INTRO CATH DIALYSIS CIRCUIT DX ANGIOGRAPHY FLUORO S&I Right 02/06/2024 AV FISTULOGRAM DIAGNOSTIC performed by Acosta Hope MD at OR [facility] INTRO CATH DIALYSIS CIRCUIT W/TRANSCATH PLACEMENT IV STENT Right 05/22/2022 AV FISTULOGRAM STENT & PERIPHERAL ANGIOPLASTY performed by Carmelo Ramos MD at [facility] INTRO CATH DIALYSIS CIRCUIT W/TRANSLUM BALLOON ANGIOPLASTY Left 02/25/2020 AV FISTULOGRAM & PERIPHERAL ANGIOPLASTY performed by Theo Huang MD at OR [facility] INTRO CATH DIALYSIS CIRCUIT W/TRANSLUM BALLOON ANGIOPLASTY Left 09/29/2020 AV FISTULOGRAM & PERIPHERAL ANGIOPLASTY performed by Carmelo Ramos MD at OR [facility] INTRO CATH DIALYSIS CIRCUIT W/TRANSLUM BALLOON ANGIOPLASTY Left 11/02/2020 AV FISTULOGRAM & PERIPHERAL ANGIOPLASTY performed by Carmelo Ramos MD at OR [facility] INTRO CATH DIALYSIS CIRCUIT W/TRANSLUM BALLOON ANGIOPLASTY Right 06/15/2021 AV FISTULOGRAM & PERIPHERAL ANGIOPLASTY performed by Balbir Santiago MD at OR [facility] INTRO CATH DIALYSIS CIRCUIT W/TRANSLUM BALLOON ANGIOPLASTY Right 04/16/2023 AV FISTULOGRAM & PERIPHERAL ANGIOPLASTY performed by Carmelo Ramos MD at [facility] IOF CT GUIDED NEEDLE BIOPSY 05/18/2013 CT GUIDED NEEDLE ASPIRATION BIOPSY performed by Tremaine Rodríguez PA-C at RADIOLOGY [facility] KNEE ARTHROSCOPY, DIAGNOSTIC 10/27/2008 Knee Scope,Diagnostic LAPAROSCOPY; CHOLECYSTECTOMY N/A 12/18/2016 LAPAROSCOPIC CHOLECYSTECTOMY [facility] DR. DIAZ 12/18/16 LASIK SURGERY 1986 LIGATE/CUT OVIDUCT(S) 10/10/2011 REMOV MARI BENJI CATH W/O PORT 11/24/2014 REMOVAL OF TUNNELED CENTRAL VENOUS CATHETER performed by Danny Godinez MD at RADIOLOGY [facility] REMOV MARI BENJI CATH W/O PORT Left 09/29/2020 REMOVAL OF TUNNELED CENTRAL VENOUS CATHETER performed by Carmelo Ramos MD at OR [facility] RENAL BIOPSY, PERCUTANEOUS (TROCAR/NEEDLE) N/A 11/16/2014 RENAL BIOPSY PERCUTANEOUS performed by Fer Sharp MD at OR [facility] RENAL BIOPSY, PERCUTANEOUS (TROCAR/NEEDLE) N/A 11/23/2014 RENAL BIOPSY PERCUTANEOUS performed by Fer Sharp MD at OR [facility] THROMBECTOMY, PERCUT, THROMBOLYTIC INJECT Left 09/29/2020 PERCUTANEOUS MECHANICAL VENOUS THROMBECTOMY performed by Carmelo Ramos MD at OR [facility] TRANSCATH PLACMENT IV STENT CENTRAL DIALYSIS SEGMENT W/IMAGING Left 09/29/2020 INTRAVASCULAR STENT CENTRAL DIALYSIS SEGMENT performed by Carmelo Ramos MD at OR [facility] TRANSLUMINAL BALLOON ANGIOPLASTY CENTRAL DIALYSIS SEGMENT W/IMAGING 02/06/2024 ANGIOPLASTY CENTRAL DIALYSIS SEGMENT performed by Acosta Hope MD at OR [facility] TRANSPLANTATION OF KIDNEY 02/18/2014 RENAL TRANSPLANT performed by Violeta Salinas MD at OR [facility] Allergies: reviewed Current medication list reviewed. Current Facility-Administered Medications Medication Dose Route Frequency Provider Acetaminophen (Tylenol) tab 975 mg 975 mg Oral Q6H PRN Seda Lind DO aspirin chew tab 81 mg 81 mg Oral Daily(AM) Seda Lind DO buPROPion (Wellbutrin) tab 75 mg 75 mg Oral BID(AM/PM) Seda Lind DO calcium acetate (Phos Binder) (Phoslo) cap/tab 2,001 mg 2,001 mg Oral With meals Orville Lind DO carBAMazepine ER (Carbatrol) cap 200 mg 200 mg Oral Q12H Seda Lind DO cinacalcet (Sensipar) tab 90 mg 90 mg Oral Daily 1900 Seda Lind DO clopidogrel (pLAVix) tab 75 mg 75 mg Oral Daily(AM) Seda Lind DO Gabapentin (Neurontin) cap 200 mg 200 mg Oral BID(AM/PM) Seda Lind DO LORAzepam (Ativan) tab 0.5 mg 0.5 mg Oral Daily PRN Seda Lind DO metoprolol succinate XL (toPROL XL) tab 25 mg 25 mg Oral BID(AM/PM) Seda Lind DO Mirtazapine (Remeron) tab 7.5 mg 7.5 mg Oral QHS PRN Seda Lind DO morphine sulfate inj 0.5 mg 0.5 mg IV Push Q4H PRN Seda Lind, morphine sulfate inj 1 mg 1 mg IV Push Q4H PRN Seda Lind DO Pantoprazole (Protonix) inj 40 mg 40 mg IV Push Q12H Seda Lind DO Polyethylene Glycol 3350 (Miralax) oral powder 17 g 17 g Oral BID(AM/PM) Seda Lind DO rosuvastatin (Crestor) tab 10 mg 10 mg Oral Daily 2100 Seda Lind DO sodium chloride 0.9 % flush/inj 3 mL 3 mL IV Push PRN Seda Lind DO Physical Examination Most Recent Vital Signs: BP: 125 mmHg/90 mmHg (05/21/24555) Pulse: 79 (05/21/24555) Resp: 18 (05/21/24131) Temp: 36.72 C (05/21/24131) Temp Summary: Temp Min: 36.5 C (97.7 F) Max: 36.7 C (98.1 F) SpO2: 100 % (05/21/24555) O2 flow rate: Supplemental O2 Delivery: Room Air, None (05/21/24555) Vital Signs last 24 Hours: Systolic BP: Most Recent Systolic BP Av.3 mmHg Min: 125 mmHg Max: 153 mmHg Temperature: Most Recent Temperature Av.6 C Min: 36.5 C Max: 36.72 C Pulse: Pulse Av.8 Min: 72 Max: 79 Respirations: Resp Av.7 Min: 18 Max: 19 SpO2: SpO2 Av % Min: 100 % Max: 100 % Body mass index is 28.89 kg/m. No intake or output data in the 24 hours ending 05/21/24 0846 General: No acute distress. HEENT: Normocephalic, atraumatic. EOM intact. Moist mucosa. Neck: Trachea is midline. No JVD appreciable. Cardiovascular: RRR. No murmurs. No palpable thrill. Pulmonary: Normal respiratory pattern. Clear to auscultation bilaterally. Abdomen: Soft, non-tender, non-distended. No masses. Bowel sounds present. Extremities: No pedal edema noted. Skin: Warm, with normal turgor. No rashes. Neuro: Alert, oriented x 3. No focal deficits. Psych: Normal thought content and intact judgment. Dialysis access: RUE AVF with good thrill however its associated with right extremity swelling after recent AVF infiltration-awaiting fistulogram to be done after her cardiac procedure. LUE AVF with good thrill. Labs reviewed as indicated below: Lab results within last 7 days (see chart for full results) Units 05/20/24 2337 SODIUM mmol/L 134* POTASSIUM mmol/L 5.5* CHLORIDE mmol/L 95* CO2 mmol/L 25 BUN mg/dL 31* CREATININE mg/dL 4.6* Lab results within last 7 days (see chart for full results) Units 05/21/24 0603 05/20/24 2337 HGB g/dL 8.7* 8.6* HCT % 26.2* 27.0* WBC K/uL 4.49 4.07 PLT K/uL 126* 113* Lab results within last 7 days (see chart for full results) Units 05/20/24 2337 CALCIUM mg/dL 9.6 Albumin g/dL 3.7* Recent Cultures (2 Weeks) No lab values to display. Pertinent Imaging :personally reviewed images No imaging results in the last 24 hours Impression: ESRD- on IHD- MWF schedule at [facility] with Dr. Leah Esteban via LUE AVF. - RUE AVF infiltration with right arm swelling-awaiting fistulogram to be done after her cardiac procedure. Chest pain likely in the setting of type 2 MD due to demand injury considering acute blood loss in a patient with CAD associated with elevated but flat troponins. HTN T2DM HFrEF 40-45% (TTE 2023). CAD s/p ARIEL to PDA 05/07/24 Acute on chronic anemia likely secondary to blood loss in the setting of chronic history of hemorrhoids. BP: Uncontrolled. Volume status: Mild hypervolemic. Electrolytes: Sodium 134, hyperkalemia 6.1. Acid-base status: Acceptable with serum bicarb 25. Uremia: BUN 37, creatinine 5.2. CKD MBD: Calcium normal 9.5, hyperphosphatemia 5.8. Anemia: Hemoglobin 8.7 grams/deciliter. Recommendations Considering persistent hyperkalemia, will give a full 4 hours session of dialysis today with aim of2-3 L UF as tolerated. Will assess tomorrow again for further dialysis needs. Blood pressure remains uncontrolled- will try 2.5-3 L UF as tolerated today. Continue to monitor BP and start amlodipine 5-10 mg daily if BP remains uncontrolled. Renal diet with low phosphorus and low-potassium. Repeat whole blood potassium in evening to make sure hyperkalemia is corrected after dialysis session. Continue CASH REGISTER OPERATOR phos binder calcium acetate 2001 mg with meals, cinacalcet 90 mg daily. Continue to dose medications according to IHD. Will hold on EPO in the setting of uncontrolled hypertension. PRBC transfusion if hemoglobin less than 7 grams/deciliter. Rest of the management as per primary team. I appreciate the opportunity of participating in Ms. Arguello's care. I have discussed the assessment and management plan with Dr. Mac, the attending physician and communicated to the primary team. Kenneth Benjamin MD Fellow Nephrology [facility] [address] Associated attestation - Negin Mac MD - 05/21/2024 4:41 PM EDT I saw and evaluated the patient today. I have reviewed the fellow physician note and agree.Hyperkalemia arranged dialysis today,chest pain under evaluation,trending troponin, noted ECHO today EF 41%,acute blood loss anemia with lower GI bleed,Hb 8.7,reviewed GI note today, planned for Colonoscopy, will assess tomorrow if need dialysis,discussed with the primary team * Jasbir Benjamin MD - 05/21/2024 7:19 AM EDTAssociated Order(s): GASTROENTEROLOGY CONSULT IP CONSULT - Gastroenterology [facility] [phone] Name: Alexandra Arguello Location: [facility] B3/A Date: 05/21/2024 Time: 7:19 AM REQUESTING SERVICE: Medicine REASON FOR CONSULT: "LGIB, eval for anoscopy vs colonoscopy +/- hemorrhoid intervention " HPI: Alexandra Arguello is a 38 year old female with hx of diverticulosis, ESRD 2/2 FSGS on HD MWF, HFrEF (EF 40-45%), CAD s/p ARIEL to PDA 05/07/24, and T2DM who presented with complaints of dizziness, chest pain and lethargy to [facility]. Per the patient she has been experiencing sharp nonradiating chest pain for the past month with no improvement with any pharmacological interventions. Her orthopnea would reportedly improve post dialysis. She also endorses BRBP for the past month particularlywith wiping and with bowel movements. Does endorse painful BM at times. Reports she has been told she has hemorrhoids. Denies any prior episodes of melena, hematemesis, nausea or vomiting. No abdominal pain. No recent sick contacts. Denies any family hx of malignancy. Did have EGD and colonoscopies previously (positive for polyps - path unavailable). Denies any recent NSAID or ew OTC medication use. Of note she was recently admitted from 05/05-05/10 and underwent left heart cardiac catheterization with placement of ARIEL in right CASH REGISTER OPERATOR, (catheterization was additionally notable for BAG SHAKER of LAD with further planned intervention on 06/08 at [facility] [address]). During her stay her hemoglobin haddropped to 7.5 and she had received 1 unit PRBC with improvement to a new baseline of 9-11 (per chart review). Workup in the ED was notable for anemia with hemoglobin at 7. She received 1 unit PRBC and was recommended for transferred to [facility] [address] for further evaluation. 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 Metabolic acidosis 11/05/2014 Migraine without aura, intractable Ovarian cyst Pre-transplant evaluation for kidney transplant 02/04/2014 Tobacco abuse Past Surgical History: Past Surgical History: Procedure Laterality Date AV ACCESS, DIRECT ANASTOMOSIS Right 04/28/2015 ARTERIOVENOUS ANASTOMOSIS OPEN DIRECT ANY SITE performed by Carmeol Ramos MD at [facility] AV ACCESS, DIRECT ANASTOMOSIS Right 01/03/2021 ARTERIOVENOUS ANASTOMOSIS OPEN DIRECT ANY SITE performed by Carmelo Ramos MD at [facility] DELIVERY DELIVERY ONLY W/ 10/08/2011 DELIVERY AND CARE performed by ANDRA SMITH at OB [facility] COLONOSCOPY, DIAGNOSTIC (RECTUM) 10/01/2017 adenomatous polyp, diverticulosis, repeat 5 yrs/[facility] COLONOSCOPY, DIAGNOSTIC (RECTUM) 03/29/2023 poor prep, repeat / [facility] CORONARY ANGIOGRAPHY W/LEFT HEART CATH 01/26/2017 CORONARY ANGIOGRAPHY W/LEFT HEART CATH performed by Andra Velasquez MD at CARDIAC LABS [facility] CYSTOSCOPY 03/17/2014 With stent removal EGD, FLEXIBLE, DIAGNOSTIC 09/11/2022 mild gastric irriation on bx / [facility] EGD, FLEXIBLE,W/ENDOSCOPIC US 06/14/2017 mild-mod gastric inflammation/[facility] INSER MARI CAT,W/O PUMP;5YR/OLD 11/05/2014 INSERT TUNNELED CENTRAL VENOUS CATHETER AGE 5 OR OLDER performed by Danny Godinez MD at RADIOLOGY [facility] INTRO CATH DIALYSIS CIRCUIT DX ANGIOGRAPHY FLUORO S&I Left 02/25/2020 AV FISTULOGRAM DIAGNOSTIC performed by Theo Huang MD at OR [facility] INTRO CATH DIALYSIS CIRCUIT DX ANGIOGRAPHY FLUORO S&I Right 02/06/2024 AV FISTULOGRAM DIAGNOSTIC performed by Acosta Hope MD at OR [facility] INTRO CATH DIALYSIS CIRCUIT W/TRANSCATH PLACEMENT IV STENT Right 05/22/2022 AV FISTULOGRAM STENT & PERIPHERAL ANGIOPLASTY performed by Carmelo Ramos MD at OR [facility] INTRO CATH DIALYSIS CIRCUIT W/TRANSLUM BALLOON ANGIOPLASTY Left 02/25/2020 AV FISTULOGRAM & PERIPHERAL ANGIOPLASTY performed by Theo Huang MD at OR [facility] INTRO CATH DIALYSIS CIRCUIT W/TRANSLUM BALLOON ANGIOPLASTY Left 09/29/2020 AV FISTULOGRAM & PERIPHERAL ANGIOPLASTY performed by Carmelo Ramos MD at OR [facility] INTRO CATH DIALYSIS CIRCUIT W/TRANSLUM BALLOON ANGIOPLASTY Left 11/02/2020 AV FISTULOGRAM & PERIPHERAL ANGIOPLASTY performed by Carmelo Ramos MD at OR [facility] INTRO CATH DIALYSIS CIRCUIT W/TRANSLUM BALLOON ANGIOPLASTY Right 06/15/2021 AV FISTULOGRAM & PERIPHERAL ANGIOPLASTY performed by Balbir Santiago MD at OR [facility] INTRO CATH DIALYSIS CIRCUIT W/TRANSLUM BALLOON ANGIOPLASTY Right 04/16/2023 AV FISTULOGRAM & PERIPHERAL ANGIOPLASTY performed by Carmelo Ramos MD at OR [facility] IOF CT GUIDED NEEDLE BIOPSY 05/18/2013 CT GUIDED NEEDLE ASPIRATION BIOPSY performed by Tremaine Rodríguez PA-C at RADIOLOGY [facility] KNEE ARTHROSCOPY, DIAGNOSTIC 10/27/2008 Knee Scope,Diagnostic LAPAROSCOPY; CHOLECYSTECTOMY N/A 12/18/2016 LAPAROSCOPIC CHOLECYSTECTOMY [facility] DR. DIAZ 12/18/16 LASIK SURGERY 1987 LIGATE/CUT OVIDUCT(S) 10/10/2011 REMOV MARI BENJI CATH W/O PORT 11/24/2014 REMOVAL OF TUNNELED CENTRAL VENOUS CATHETER performed by Danny Godinez MD at RADIOLOGY [facility] REMOV MARI BENJI CATH W/O PORT Left 09/29/2020 REMOVAL OF TUNNELED CENTRAL VENOUS CATHETER performed by Carmelo Ramos MD at OR [facility] RENAL BIOPSY, PERCUTANEOUS (TROCAR/NEEDLE) N/A 11/16/2014 RENAL BIOPSY PERCUTANEOUS performed by Fer Sharp MD at OR [facility] RENAL BIOPSY, PERCUTANEOUS (TROCAR/NEEDLE) N/A 11/23/2014 RENAL BIOPSY PERCUTANEOUS performed by Fer Sharp MD at [facility] THROMBECTOMY, PERCUT, THROMBOLYTIC INJECT Left 09/29/2020 PERCUTANEOUS MECHANICAL VENOUS THROMBECTOMY performed by Carmelo Ramos MD at [facility] TRANSCATH PLACMENT IV STENT CENTRAL DIALYSIS SEGMENT W/IMAGING Left 09/29/2020 INTRAVASCULAR STENT CENTRAL DIALYSIS SEGMENT performed by Carmelo Ramos MD at [facility] TRANSLUMINAL BALLOON ANGIOPLASTY CENTRAL DIALYSIS SEGMENT W/IMAGING 02/06/2024 ANGIOPLASTY CENTRAL DIALYSIS SEGMENT performed by Acosta Hope MD at [facility] TRANSPLANTATION OF KIDNEY 02/18/2014 RENAL TRANSPLANT performed by Violeta Salinas MD at [facility] Social History: Social History Tobacco Use Smoking status: Former Current packs/day: 0.00 Average packs/day: 0.5 packs/day for 11.0 years (5.5 ttl pk-yrs) Types: Cigarettes Start date: 12/2010 Quit date: 12/2021 Years since quittin.4 Smokeless tobacco: Never Tobacco comments: 02/19/2024 smokes 1 pack per day, declined pamphlet Vaping Use Vaping status: Never Used Substance Use Topics Alcohol use: No Drug use: No Family History: Family History Problem Relation Name Age of Onset Diabetes Mother Cony Thyroid Disorder Mother Cony hyperthyroidism Gastro-intestinal disorder Father Ivan crohn's Mental Disorder Father Ivan depression - suicide Hypertension Grandmother (Maternal) Vickie Hypertension Sister Kylah Thyroid Disorder Sister Kylah mcdaniel hypothyroidism Other (hyperlipidemia [Other]) Grandfather (Maternal) Heart Disorder Brother Ivan age 19 months - only 2 working chambers; also with esophageal problems Other (?lupus [Other]) Grandmother (Paternal) Allergies: Amoxicillin, Cefaclor, and Cephalosporins ROS: Reviewed, negative except as above. PHYSICAL EXAMINATION: Most Recent Vital Signs: BP: 125 mmHg/90 mmHg (05/21/24555) Pulse: 79 (05/21/24555) Resp: 18 (05/21/24131) Temp: 36.72 C (05/21/24131) Temp Summary: Temp Min: 36.5 C (97.7 F) Max: 36.7 C (98.1 F) SpO2: 100 % (05/21/24555) O2 flow rate: Supplemental O2 Delivery: Room Air, None (05/21/24555) Vital Signs Last 24 Hours: Systolic BP: Most Recent Systolic BP Av.3 mmHg Min: 125 mmHg Max: 153 mmHg Temperature: Most Recent Temperature Av.6 C Min: 36.5 C Max: 36.72 C Pulse: Pulse Av.8 Min: 72 Max: 79 Respirations: Resp Av.7 Min: 18 Max: 19 SpO2: SpO2 Av % Min: 100 % Max: 100 % General: resting comfortably, in no acute distress HEENT: normocephalic, atraumatic Thorax: S1 + S2, no murmurs, CTAB, normal inspiratory effort Abdomen: Non-distended, soft, non-tender Extremities: No edema. Neurologic: Awake, Alert, and Oriented, following commands FREDERICK (performed in the presence of GI fellow Dr. Duke, notable for norman-anal blood staining with external hemorrhoid present, bright red blood present on exam) LABS: Reviewed in [facility] Hgb 8.7 MCV 102 Platelets 126 IMAGES: Reviewed in [facility] ENDOSCOPIC Hx: Reviewed in [facility] and relevant for : Colonoscopy 03/29/2023 Impression : - Preparation of the colon was poor. - Stool in the entire examined colon. - No specimens collected. EGD 09/11/2022 Impression: - Normal esophagus. - Gastritis. Biopsied. - Mucosal changes in the duodenum. - Normal second portion of the duodenum Path: Colonoscopy 10/01/2017 - The examined portion of the ileum was normal. - Two 4 mm polyps in the descending colon, removed with a cold biopsy forceps. Resected and retrieved. - Diverticulosis in the sigmoid colon and in the descending colon. - The entire examined colon is normal. Biopsied. - The distal rectum and anal verge are normal on retroflexion view. IMPRESSION: Alexandra Arguello is a 38 year old female with hx of diverticulosis, hemorrhoids, ESRD 2/2 FSGS on HD MWF, HFrEF (EF 40-45%), CAD s/p ARIEL to PDA 05/07/24, and T2DM who presents as a transfer from [facility] after she was found to have bright red blood per rectum and acute on chronic anemia concerning for LGIB. Given her hx of diverticulosis will plan for colonoscopy over Flex Sig in the AM afterbowel prep today RECOMMENDATIONS/PLAN: - Clear liquid diet, NPO at 2400 - will plan for colonoscopic evaluation tentatively tomorrow - Okay for QD PO PPI - Two large bore IVs. - Trend H&H and transfuse as necessary to maintain Hgb >7 - EARLY (4AM) labs -Potassium and Magnesium in normal range -Sodium within 5 points of normal -Platelets >50K -Hb >7 -INR <2 - recommend further anemia workup to rule out concomitant other causes of anemia (given elevated MCV) I have discussed the case with my attending, Dr. Serna. Jasbir Benjamin MD Resident Internal Medicine Associated attestation - Zachariah Serna DO - 05/21/2024 10:47 AM EDT I saw and evaluated the patient today. I have reviewed the resident/fellow physician note and agree. documented in this encounter Nursing Notes * Lisseth Deras RN - 05/23/2024 1:53 PM EDT Patient DC to home with all belongings, IV removed, Teach back DC education provided, patient denies questions at this time * Yoly Apple RN - 05/23/2024 12:22 PM EDT POST ASSESSMENT COMMUNICATION NOTE - HEMODIALYSIS Attention to: [id number] staff nurse Patient arriving via: Bed Time of Call: tiger text staff nurse Phone Ext.: Reason for SBAR handoff: Postdialysis treatment. Treatment: Prescribed treatment time: changed from 4 hrs to 3 hrs Duration of Treatment (minutes): 180 minutes (05/23/24 1205) Dialysis Treatment Less than Prescribed: NO Prescribed UF: 1.5 - 2 L Dialysis: 1500 ml (05/23/24 1200) Reason prescribed UF was not achieved: n/a Blood Returned: Yes Potassium Bath: As ordered for entire treatment, 3K+ 2.5 Ca Post Dialysis Vitals: Temp: 36.4 C (97.5 F) (05/23/24 1205) Pulse: 76 (05/23/24 1205) Resp: 15 (05/23/24 1205) SpO2: 100 % (05/23/24 0541) O2 flow rate: 2 L/MIN (05/23/24 0800) Supplemental O2 Delivery: Room Air, None (05/23/24 120) Pain Assessment Flowsheet Row Most Recent Value [facility] 0-10 Pain Score 8 (severe pain) Pre BP Sittin/74 (05/23/24 0850) Post BP Sittin/52 (05/23/24 1205) Pre-Treatment Weight: 80.3 kg (177 lb 0.5 oz) (05/23/24 0850) Post-Treatment Weight: 78.8 kg (173 lb 11.6 oz) (05/23/24 1205) Treatment Weight Change (kg): -1.5 kg (05/23/24 1205) Medications administered, see MAR/flowsheets for further information: None Access: Arteriovenous graft,Left arm needle size 15G Function: No problems Date/time to remove pressure dressin05/23/24@2000 Dialysis Tx Tolerance: Tolerated well (05/23/24 1200) Patient educated on: Signs and symptoms to report to staff Additional patient needs/interventions during treatment: N/A No bleeding from dialysis access. Instructed to remove pressure dressing at 1999 on 05/23/24. Pt transported to floor in stable condition. * Aga Araujo RN - 05/22/2024 2:37 PM EDT DISCHARGE PROGRESS NOTE - ENDOSCOPY [address] [address] Name: Alexandra Arguello Location: [facility] HFAM/Endo Date: 05/22/2024 Time: 2:37 PM Patient is discharged under the care of : transport Report called to Inpatient unit BP3 [facility] Means of transportation: stretcher Bronchoscopy: N/A Oxygen support: N/A * Aga Araujo RN - 05/22/2024 2:36 PM EDT Per verbal order, the physician has examined the patient, prescribed and verified the charted medication, and certified that she is recovered and may return to the nursing clancy. Seen by anesthesia, may be discharged back to floor Report called Placed on transport * Kaden Fernández RN - 05/22/2024 2:11 PM EDT Procedure being completed under general anesthesia. Please see anesthesia record for medications and vital signs. * Magan Sanchez RN - 05/22/2024 12:13 PM EDT Patient does not meet criteria for testing. * Adolfo Self RN - 05/22/2024 6:10 AM EDT Patient stool remains dark in color, watery loose. No formed stool present after drinking bowel prep. Messaged service surveillance monitor to make aware. Will await any new orders. * Ilene Galan RN - 05/21/2024 4:41 PM EDT POST ASSESSMENT COMMUNICATION NOTE - HEMODIALYSIS Attention to: Leah Patient arriving via: Bed Time of Call: 4:42 PM Phone Ext.: [phone] Reason for SBAR handoff: Postdialysis treatment. Treatment: Prescribed treatment time: 4 hours Duration of Treatment (minutes): 241 minutes (05/21/241620) Dialysis Treatment Less than Prescribed: NO Prescribed UF: 2.5-3L as tolerated Dialysis: 3000 ml (05/21/24 164) Reason prescribed UF was not achieved: na Blood Returned: Yes Potassium Bath: As ordered for entire treatment, 2K+ 2.5 Ca Post Dialysis Vitals: Temp: 35.7 C (96.3 F) (05/21/241620) Pulse: 75 (05/21/241620) Resp: 20 (05/21/241620) SpO2: 100 % (05/21/241620) Supplemental O2 Delivery: Room Air, None (05/21/241620) Pain Assessment Flowsheet Row Most Recent Value Pain Assessment Scale [facility] Adult Scale 0-10 Pain Score 10 (severe pain) Pre BP Sittin/84 (05/21/24 1208) Post BP Sittin/62 (05/21/24 162) Pre-Treatment Weight: 82.3 kg (181 lb 7 oz) (05/21/24 1208) Post-Treatment Weight: 79.3 kg (174 lb 13.2 oz) (05/21/24 162) Treatment Weight Change (kg): -3 kg (05/21/241620) Medications administered, see MAR/flowsheets for further information: Pain medication - last dose given: 1540 Access: Arteriovenous graft,Left arm needle size 15G Function: No problems Date/time to remove pressure dressin05/21/24@0600 Dialysis Tx Tolerance: Tolerated well (05/21/241618) Patient educated on: Fistula/graft care Additional patient needs/interventions during treatment: N/A No bleeding from dialysis access. Instructed to remove pressure dressing at see above. Patient remains in inpatient bed. Report verbalized to bessie via tt. * Leah Jimenez RN - 05/21/2024 11:40 AM EDT IP TO DIALYSIS HANDOFF COMMUNICATION NOTE Attention to: dialysis Patient arriving via: Bed Time of Call: 11:41 AM Phone Ext.: [phone] Reason for SBAR handoff: Predialysis treatment. Neuro Assessment: Neurological: Neurological WNL Neuro WNL: WNL - within normal limits (05/21/24 1130) Level of Consciousness: Alert (05/21/24 1024) Orientation Level: Oriented x4 (05/21/24 1024) Cognition: Appropriate for age (05/21/24 1024) Speech: Clear (05/21/24 1024) Facial Drooping: Face symmetrical (05/21/24 1024) Behaviors/Mood/Neuro Symptoms: Calm (05/21/24 1024) Shannon Coma Scale - For patients greater than two years old Eyes Open: Spontaneous (05/21/24 1130) Best Verbal Response: Verbally appropriate for age (05/21/24 1130) Best Motor Response: Obeys commands appropriate for age (05/21/24 1130) Coma Score: 15 (05/21/24 1130) Additional Neurological Information: none Assessment: BP: 124/76 (05/21/24 1039) Temp: 37 C (98.6 F) (05/21/24 1039) Pulse: 79 (05/21/24 1039) Resp: 18 (05/21/24 1039) SpO2: 100 % (05/21/24 1039) Supplemental O2 Delivery: Room Air, None (05/21/24 1130) Pain Assessment Flowsheet Row Most Recent Value Pain Assessment Scale [facility] Adult Scale 0-10 Pain Score 9 (severe pain) Last dose of pain medication administered Morphine sulfate time 1052 Michael Score: Michael Score (auto-calculation): 20 (05/21/24 0955) Diabetic: Yes she has her own dexcom but we only did one time sugar check on her. Last Blood Sugar: Glucose (Bedside): 122 (05/21/24 1122) Dialysis Access: left fistula used yesterday at other facility and has bandage on because it is notlabeled when to remove and patient reports it has not been 24hr. Continuous medications: none Labs needing collected: potassium @ noon, 2 pm if you are able to do them. How does the patient take their medications: Whole Emotional/Personal Events and Special Needs: ativan given prior to coming down to dialysis per orders. * Leah Jimenez RN - 05/20/2024 7:00 PM EDT Dual Licensed Skin Assessment completed by Leah Bro and La Nena Melendez. The patient is/has a N/A Skin Breakdown (includes non blanchable erythema): No documented in this encounter Miscellaneous Notes * Progress Notes - Non-Billable - Lewis Langford MD - 05/22/2024 4:17 PM EDT Post-OP check Subjective: Patient doing well after colonoscopy. Reports unchanged 10/10 chest pain, denies any other symptomsapart from feeling hungry. Objective: BP 140/51 | Pulse 70 | Temp 36.4 C (97.5 F) (Tympanic) | Resp 16 | Ht 1.676 m (5' 6") | Wt 80 kg (176 lb 5.9 oz) | SpO2 100% | BMI 28.47 kg/m | BSA 1.93 m Physical examination: General: Well appearing, AAOx3, in no acute distress HEENT: Atraumatic, normocephalic, non-icteric sclera, moist mucous membranes Neurologic: No focal deficits, following commands, appropriate responses to questions, CN grossly intact, power equal and normal in UL and LL bilaterally CVS: RRR, normal S1 and S2, unchanged systolic crescendo-decrescendo murmur Respiratory: Normal effort, breath sounds normal and equal bilaterally, no crackles, no rales Abdominal: Soft, nondistended, nontender, normoactive bowel sounds Extremities: No edema, peripheral pulses are regular and equal, bilateral AV fistulas intact with palpable thrill Skin: Warm, dry, intact OR: The entire examined colon was unremarkable and no specimens were collected. On perianal exam a lesion was found which could be consistent with anal fissure. More peripherally a thrombosed external hemorrhoid was found with two small openings with very mild spontaneous oozing. 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 Return to consistent-carb dialysis diet Rest of care per progress note * Care Plan - Leah Jimenez RN - 05/22/2024 4:00 PM EDT Clinical Goal(s): patient will tolerate procedure today (05/22/24 1012) Possible barriers to meeting goal(s)/advancing plan of care: patient went to endo today. Stability of the patient: Moderately stable - low risk of patient condition declining or worsening Summary regarding today's goal(s): Met: 05/22/24 Recommendations: goal met. * Communication - Pepper Duke MD - 05/22/2024 2:51 PM EDT GI COMMUNICATION NOTE Patient underwent colonoscopy today 05/22/2024 successfully without complication. The entire examined colon was unremarkable and no specimens were collected. On perianal exam a lesion was found which could be consistent with anal fissure. More peripherally a thrombosed external hemorrhoid was found with two small openings with very mild spontaneous oozing. These perianal findings paired with the presence of hemorrhoids are likely the cause of patient's symptoms. Recommendations: - okay for diet as previously ordered - continue supportive care for hemorrhoids, would assure that bowel movements are regular, avoid constipation - can consider colorectal evaluation if bleeding continues - we will sign off at this time, TT with questions or clinical changes Pepper Duke MD Gastroenterology, PGY-4 * Ancillary Progress Note - Isaura Morataya RDN - 05/22/2024 8:16 AM EDT CLINICAL NUTRITION ADULT RISK ASSESSMENT [address] [address] Name: Alexandra Arguello Location: [facility] B335/A Date: 05/22/2024 Time: 8:16 AM How patient was identified (select 2): Medical record number and Name Alexandra Arguello is a 38 year old female being assessed for clinical nutrition risk related to dialysis Primary diagnosis: Acute blood loss anemia Other pertinent information: The pt reported that she is hungry, no issues with appetite prior to admission. Denies nausea, vomiting, constipation and diarrhea. Drinks a protein shake at home daily, would like Boost Glucose Control when diet is advanced. No issues with chewing or swallowing. Receives HD Saturday, Saturday, Saturday. Anthropometrics Measurements Admission weight (for dietitians): 80 kg Height: 167.6 cm (5' 6") (05/20/242208) Weight: 80 kg (176 lb 5.9 oz) (05/22/24 0544) BMI: 28.66 (05/20/242208) Usual Body Weight or EDW for Dialysis Patients: 76-78 kg (pt report) Diet: NPO Previously followed diet: Regular Food Allergies/Intolerances: None Oral Nutrition Supplement (ONS): None Pertinent medications/vitamins/minerals/supplements: Phoslo (2001 mg) with meals, Sensipar (90 mg),Miralax RISK FACTORS: Adult Energy Intake: No significant decrease Interpretation of Weight Change: Change likely secondary to fluid Skin: Intact NUTRITION RISK CATEGORY: Dialysis Risk: BMI less than 23 - No Body mass index is 28.47 kg/m. Pre-dialysis serum albumin less than 3.5 gm/dl for HD or less than 3.3 gm/dl for PD Latest Reference Range & Units 05/20/24 23:37 Albumin 3.8 - 5.0 g/dL 3.7 (L) NUTRITION RISK CATEGORY: Low/Moderate (0-1 factors) Clinical Nutrition Recommendations: Diet: Advance diet when clinically feasible NUTRITION INTERVENTION/PLAN: Orders: Oral nutrition supplement recommended: - Boost Glucose Control (1 cup provides 190 calories, 16 grams protein, 16 grams carbohydrate) daily - Vanilla only Will follow and adjust nutritional plan as medical condition requires. Please contact for change(s)in patient condition requiring earlier intervention. Isaura Morataya RDN, [facility] Clinical Nutrition Services Phone: [phone] [facility] * Care Plan - Adolfo Self RN - 05/22/2024 4:38 AM EDT Clinical Goal(s): pt will have decreased pain levels of 5/10 or less (05/21/240) Possible barriers to meeting goal(s)/advancing plan of care: pain Stability of the patient: Moderately stable - low risk of patient condition declining or worsening Summary regarding today's goal(s): Met: Patient states that pain is relieved after taking prn morphine Recommendations: call martinez in reach, frequent rounding. * Ancillary Progress Note - Mandy Arndt MSN - 05/21/2024 11:53 AM EDT Attempted to see patient for admission screening. EKG then doctors were in to see patient. Will follow up as able. Patient now in dialysis. * Care Plan - Kristi Guerrero RN - 05/21/2024 9:57 AM EDT Clinical Goal(s): pt will remain free from falls this shift (05/21/24 0800) Possible barriers to meeting goal(s)/advancing plan of care: environment Stability of the patient: Moderately stable - low risk of patient condition declining or worsening Summary regarding today's goal(s): Met: no fall this shift Recommendations: assist oob documented in this encounter Plan of Treatment Upcoming Encounters Date Type Department Care Team (Latest Contact Info) Description 06/09/2024 7:00 AM EDT Hospital Encounter CRS Waiting [facility], Cardiac Recovery Suite Waiting Unit, [address] [place] [address] Diamond Mcgowan MD [address] [place] [address] 06/09/2024 7:00 AM EDT - 06/09/2024 8:00 AM EDT Surgery CRS Waiting [facility], Cardiac Recovery Suite Waiting Unit, [address] [place] [address] Diamond Mcgowan MD [address] [place] [address] PTCA, CARDIAC ANGIOPLASTY, PERCUTANEOUS, 1 ARTERY 06/09/2024 7:00 AM EDT Office Visit [facility]iology [facility] [place] [address] [place] [address] [place], Cardiac Recovery [facility] [address] [place] [facility] [place] [address] 07/07/2024 12:30 PM EST Office Visit Orthopaedics [facility] [address] [facility] [place] [address] Ary Rowe MD [address] [facility] [place] [address] 09/01/2024 1:40 PM EST Office Visit [facility] [address] [place] [id number] Evi Aldridge MD [address] [place] [address] 04/01/2025 2:40 PM EDT Telemedicine Neurology [address] [place] [address] Eros Marks, [address] [facility] [place] [address] Scheduled Orders Name Type Priority Associated Diagnoses Orde r Schedule EKG EKG Routine Electrolyte abnormality One Time for 1 Occurrences starting 05/21/2024 until 05/21/2024 HEPATITIS B SURFACE ANTIBODY Lab Add-on One Time for 1 Occurrences starting 05/23/2024 until 05/23/2024 HEPATITIS B SURFACE ANTIGEN Lab Add-on One Time for 1 Occurrences starting 05/23/2024 until 05/23/2024 HEPATITIS B CORE ANTIBODY IGM Lab Add-on One Time for 1 Occurrences starting 05/23/2024 until 05/23/2024 Scheduled Procedures Name Priority Associated Diagnoses Date/Ti [...] Depression Monitoring 05/11/2025 05/11/2024 Colonoscopy 2030 05/22/2024, 08/0 11/2022, 10/01/2017, Additional history exists Pneumococcal Vaccine: [...] this encounter Medical Devices Implanted Type Area Poultice Machine Operator Device Identifier Shelf Expiration Date Model / Serial / Lot Stent Protege Gps [id number] - [id number] Implanted:Qty : 1 on 09/29/2020 by Carmelo Ramos MD at OR [facility] Left: Chest [employer] : VASCULAR [id number] 09/20/2022 [id number] / / [id number] Stent Viab [id number] - [id number] Implanted:Qty : 1 on 04/16/2023 by Carmelo Ramos MD at OR [facility] Right: Subclavian [employer] [id number] 01/26/2026 [id number] / [id number] / [id number] documented as of this encounter Procedures Procedure Name Priority Date/Time Associated Diagnosis Comments CBC Routine 05/23/2024 10:46 AM EDT RENAL FUNCTION PANEL Routine 05/23/2024 7:19 AM EDT CBC Routine 05/23/2024 7:19 AM EDT CBC Routine 05/22/2024 5:30 PM EDT COLONOSCOPY 05/22/2024 1:09 PM EDT HEMOGLOBIN A1C Routine 05/22/2024 7:43 AM EDT RENAL FUNCTION PANEL Routine 05/22/2024 7:43 AM EDT CBC Routine 05/22/2024 7:43 AM EDT TROPONIN T, HIGH SENSITIVITY STAT 05/21/2024 8:11 PM EDT BASIC METABOLIC PANEL Routine 05/21/2024 8:11 PM EDT POTASSIUM, WHOLE BLOOD Routine 8:11 PM EDT CBC Routine 05/21/2024 8:11 PM EDT FOLIC ACID Routine 05/21/2024 2:01 PM EDT VITAMIN B12 Routine 05/21/2024 2:01 PM EDT HC ECG TRACING ONLY STAT 05/21/2024 1 2:33 PM EDT Chest pain GLUCOSE METER, POINT OF CARE JES 05/21/2024 11:21 AM EDT ECHO, COMPLETE (2D), TRANS-THORACIC Routine 05/21/2024 10:41 AM EDT Chest pain, unspecified type POTASSIUM, WHOLE BLOOD STAT 10:25 AM EDT TROPONIN T, HIGH SENSITIVITY Add-on 05/21/2024 9:12 AM EDT RENAL FUNCTION PANEL STAT 05/21/2024 9:12 AM EDT RETICULOCYTE PANEL Add-on 05/21/2024 6: 03 AM EDT CBC Routine 05/21/2024 6:03 AM EDT TYPE AND SCREEN Routine 05/20/2024 11:57 PM EDT COMPREHENSIVE METABOLIC PANEL Routine 05/20/2024 11:37 PM EDT CBC STAT 05/20/2024 11:37 PM EDT documented in this encounter Results * (ABNORMAL) CBC (05/23/2024 10:46 AM EDT) [facility] WBC 3.59(L) 4.00 - 10.80 K/uL 05/23/2024 11:05 AM EDT LABORATORY [facility] RBC 2.89 3.85 - 5.15 M/uL 05/23/2024 11:05 AM EDT LABORATORY [facility] HGB 9.5(L) 12.0 - 15.3 g/dL 05/23/2024 11:05 AM EDT LABORATORY [facility] HCT 29.6(L) 36.0 - 45.2 % 05/23/2024 11:05 AM EDT LABORATORY [facility] MCV 102.4 81.5 - 97.5 fL 05/23/2024 11:05 AM EDT LABORATORY [facility] MCH 32.9 27.0 - 34.0 pg 05/23/2024 11:05 AM EDT LABORATORY [facility] MCHC 32.1 32.0 - 36.0 g/dL 05/23/2024 11:05 AM EDT LABORATORY [facility] RDW 22.1 11.5 - 15.5 % 05/23/2024 11:05 AM EDT LABORATORY [facility] PLT 106(L) 140 - 400 K/uL 05/23/2024 11:05 AM EDT LABORATORY [facility] MPV 9.6 6.6 - 11.1 fL 05/23/2024 11:05 AM EDT LABORATORY [facility] nRBCs 0 <=0 /100 WBCs 05/23/2024 11:05 AM EDT LABORATORY [facility] Blood Venous blood specimen / Unknown Venipuncture / Unknown 05/23/2024 10:46 AM EDT 05/23/2024 10:54 AM EDT Lewis Langford MD LAB BLOOD ORDERABLES Performing Organization Address City/State/[facility] Co de Phone Number LABORATORY [address] [place] [address] * (ABNORMAL) CBC (05/23/2024 7:19 AM EDT) [facility] WBC 3.61(L) 4.00 - 10.80 K/uL 05/23/2024 7:44 AM EDT LABORATORY G[facility] RBC 2.42 3.85 - 5.15 M/uL 05/23/2024 7:44 AM EDT LABORATORY [facility] HGB 8.1(L) 12.0 - 15.3 g/dL 05/23/2024 7:44 AM EDT LABORATORY [facility] HCT 26.0(L) 36.0 - 45.2 % 05/23/2024 7:44 AM EDT LABORATORY [facility] MCV 107.4 81.5 - 97.5 fL 05/23/2024 7:44 AM EDT LABORATORY [facility] MCH 33.5 27.0 - 34.0 pg 05/23/2024 7:44 AM EDT LABORATORY [facility] MCHC 31.2 32.0 - 36.0 g/dL 05/23/2024 7:44 AM EDT LABORATORY C RDW 21.9 11.5 - 15.5 % 05/23/2024 7:44 AM EDT LABORATORY C PLT 100(L) 140 - 400 K/uL 05/23/2024 7:44 AM EDT LABORATORY [facility] MPV 10.2 6.6 - 11.1 fL 05/23/2024 7:44 AM EDT LABORATORY [facility] nRBCs 0 <=0 /100 WBCs 05/23/2024 7:44 AM EDT LABORATORY [facility] Blood Venous blood specimen / Unknown Venipuncture / Unknown 05/23/2024 7:19 AM EDT 05/23/2024 7:33 AM EDT Lewis Langford MD LAB BLOOD ORDERABLES LABORATORY [facility] [address] [place] [address] * (ABNORMAL) RENAL FUNCTION PANEL (05/23/2024 7:19 AM EDT) BUN 41(H) 6 - 20 mg/dL 05/23/2024 8:03 AM EDT LABORATORY [facility] CREATININE 5.7(H) 0.5 - 1.0 mg/dL 05/23/2024 8:03 AM EDT LABORATORY [facility] EGFR 9(L) >=60 mL/min 05/23/2024 8:03 AM EDT LABORATORY C Comment:eGFR is calculated b ased on the CKD-EPI 2020 equation. SODIUM 135 135 - 146 mmol/L 05/23/2024 8:03 AM EDT LABORATORY [facility] POTASSIUM 4.2 3.5 - 5.1 mmol/L 05/23/2024 8:03 AM EDT LABORATORY [facility] CHLORIDE 93(L) 98 - 107 mmol/L 05/23/2024 8:03 AM EDT LABORATORY [facility] CO2 23 22 - 32 mmol/L 05/23/2024 8:03 AM EDT LABORATORY [facility] ANION GAP 19(H) 7 - 15 mmol/L 05/23/2024 8:03 AM EDT LABORATORY [facility] GLUCOSE 145(H) 70 - 120 mg/dL 05/23/2024 8:03 AM EDT LABORATORY [facility] CALCIUM 7.4(L) 8.4 - 10.2 mg/dL 05/23/2024 8:03 AM EDT LABORATORY [facility] Albumin 3.6(L) 3.8 - 5.0 g/dL 05/23/2024 8:03 AM EDT LABORATORY [facility] Phosphorus 7.1(H) 2.5 - 4.8 mg/dL 05/23/2024 8:03 AM EDT LABORATORY [facility] Blood Venous blood specimen / Unknown Venipuncture / Unknown 05/23/2024 7:19 AM EDT 05/23/2024 7:33 AM EDT Van Bills DO LAB BLOOD ORDERABLES LABORATORY [facility] [address] [place] [address] * (ABNORMAL) CBC (05/22/2024 5:30 PM EDT) WBC 3.74(L) 4.00 - 10.80 K/uL 05/22/2024 5:44 PM EDT LABORATORY [facility] RBC 2.65 3.85 - 5.15 M/uL 05/22/2024 5:44 PM EDT LABORATORY [facility] HGB 8.7(L) 12.0 - 15.3 g/dL 05/22/2024 5:44 PM EDT LABORATORY [facility] HCT 28.3(L) 36.0 - 45.2 % 05/22/2024 5:44 PM EDT LABORATORY [facility] MCV 106.8 81.5 - 97.5 fL 05/22/2024 5:44 PM EDT LABORATORY [facility] MCH 32.8 27.0 - 34.0 pg 05/22/2024 5:44 PM EDT LABORATORY [facility] MCHC 30.7 32.0 - 36.0 g/dL 05/22/2024 5:44 PM EDT LABORATORY [facility] RDW 22.1 11.5 - 15.5 % 05/22/2024 5:44 PM EDT LABORATORY [facility] PLT 107(L) 140 - 400 K/uL 05/22/2024 5:44 PM EDT LABORATORY [facility] MPV 9.2 6.6 - 11.1 fL 05/22/2024 5:44 PM EDT LABORATORY [facility] nRBCs 0 <=0 /100 WBCs 05/22/2024 5:44 PM EDT LABORATORY [facility] Blood Venous blood specimen / Unknown Venipuncture / Unknown 05/22/2024 5:30 PM EDT 05/22/2024 5:35 PM EDT Lewis Langford MD LAB BLOOD ORDERABLES Performing Organization Address City/State/[facility] Co de Phone Number LABORATORY [address] [place] [address] * COLONOSCOPY (05/22/2024 1:09 PM EDT) 05/22/2024 1:09 PM EDT Narrative Procedure Note Harrison Avila DO - 05/22/2024 1:09 PM EDT [facility] [address] Patient Name: Alexandra Arguello Procedure Date: 05/22/2024 1:09 PM Date of : 1985 Admit Type: Inpatient Note Status:Finalized Date of : 1985 Admit Type: Inpatient Age: 38 Room: Endo - Room 4 Gender: Female Note Status: Finalized Procedure: Colonoscopy Indications: Hematochezia Providers: Hema Segovia MD (Doctor), Yobany Riggins MD(Fellow), Kaden Fernández RN Patient Profile: This is a 38 year old female. Refer to note inpatient chart for documentation of history and physical. Referring MD: Harrison Avila DO, Zachariah Serna DO Medicines: Monitored Anesthesia Care Complications: No immediate complications. Procedure: Pre-Anesthesia Assessment: - Wendell Protocol: - Pre-procedure Verification: Prior to theprocedure, the patient's identity was verified by full name, date of and medicalrecord number. The patient's identity was verified on all pertinent medicalrecords, including History and Physical and nursing assessment. Also prior to theprocedure, a History and Physical was performed, and patient medications, allergiesand sensitivities were reviewed. The patient's tolerance of previous anesthesia wasreviewed. The patient is competent. The risks and benefits of the procedureand the sedation options and risks were discussed with the patient. All questions wereanswered and informed consent was obtained. - Time-Out: Prior to the start of the procedure,the patient's identification, proposed procedure, accurate signed consent,correctly labeled images and records, and need for prophylactic antibiotics were verifiedby the physician, the nurse and the port engineer in the pre-procedure area in theprocedure room. - The supervising physician was present for theentire procedure from scope insertion until scope withdrawal. After I obtained informed consent, the scope waspassed under direct vision. All instruments were visually inspected immediatelybefore and after removal from the patient to ensure they are fully intact. Throughout the procedure, the patient's bloodpressure, pulse, and oxygen saturations were monitored continuously. The CF [id number]) was introduced through the anus and advanced to the cecum,identified by appendiceal orifice and ileocecal valve. The quality of the bowelpreparation was good. Findings & Specimens: The entire examined colon appeared normal. External hemorrhoids were found during perianal exam. The hemorrhoidswere small. An anal fissure was found on perianal exam. Impression: - The entire examined colon is normal. - External hemorrhoids. - Anal fissure found on perianal exam. - No specimens collected. thrombosed external hemorrhoid with two smallholes, one with very mild spontaneous oozing nonbleeding anal fissure otherwise unremarkable exam to cecum Recommendation: - [facility] - Repeat colonoscopy. Hema Segovia MD 05/22/2024 2:13:15 PM This report has been signed electronically. Yobany Riggins MD Harrison [facility] * (ABNORMAL) CBC (05/22/2024 7:43 AM EDT) WBC 4.00 4.00 - 10.80 K/uL 05/22/2024 8:27 AM EDT LABORATORY [facility] RBC 2.75 3.85 - 5.15 M/uL 05/22/2024 8:27 AM EDT LABORATORY [facility] HGB 9.1(L) 12.0 - 15.3 g/dL 05/22/2024 8:27 AM EDT LABORATORY [facility] HCT 29.3(L) 36.0 - 45.2 % 05/22/2024 8:27 AM EDT LABORATORY [facility] MCV 106.5 81.5 - 97.5 fL 05/22/2024 8:27 AM EDT LABORATORY [facility] MCH 33.1 27.0 - 34.0 pg 05/22/2024 8:27 AM EDT LABORATORY [facility] MCHC 31.1 32.0 - 36.0 g/dL 05/22/2024 8:27 AM EDT LABORATORY [facility] RDW 22.2 11.5 - 15.5 % 05/22/2024 8:27 AM EDT LABORATORY [facility] PLT 113(L) 140 - 400 K/uL 05/22/2024 8:27 AM EDT LABORATORY [facility] MPV 9.8 6.6 - 11.1 fL 05/22/2024 8:27 AM EDT LABORATORY [facility] nRBCs 0 <=0 /100 WBCs 05/22/2024 8:27 AM EDT LABORATORY [facility] Blood Venous blood specimen / Unknown Venipuncture / Unknown 05/22/2024 7:43 AM EDT 05/22/2024 8:17 AM EDT Lewis Langford MD LAB BLOOD ORDERABLES LABORATORY [facility] [address] [place] [address] * (ABNORMAL) RENAL FUNCTION PANEL (05/22/2024 7:43 AM EDT) BUN 21(H) 6 - 20 mg/dL 05/22/2024 8:50 AM EDT LABORATORY C CREATININE 3.7(H) 0.5 - 1.0 mg/dL 05/22/2024 8:50 AM EDT LABORATORY [facility] EGFR 15(L) >=60 mL/min 05/22/2024 8:50 AM EDT LABORATORY [facility] Comment:eGFR is calculated b ased on the CKD-EPI 2020 equation. SODIUM 134(L) 135 - 146 mmol/L 05/22/2024 8:50 AM EDT LABORATORY [facility] POTASSIUM 4.4 3.5 - 5.1 mmol/L 05/22/2024 8:50 AM EDT LABORATORY [facility] CHLORIDE 94(L) 98 - 107 mmol/L 05/22/2024 8:50 AM EDT LABORATORY C CO2 25 22 - 32 mmol/L 05/22/2024 8:50 AM EDT LABORATORY C ANION GAP 15 7 - 15 mmol/L 05/22/2024 8:50 AM EDT LABORATORY C GLUCOSE 100 70 - 120 mg/dL 05/22/2024 8:50 AM EDT LABORATORY C CALCIUM 8.4 8.4 - 10.2 mg/dL 05/22/2024 8:50 AM EDT LABORATORY C Albumin 3.9 3.8 - 5.0 g/dL 05/22/2024 8:50 AM EDT LABORATORY C Phosphorus 5.7(H) 2.5 - 4.8 mg/dL 05/22/2024 8:50 AM EDT LABORATORY [facility] Blood Venous blood specimen / Unknown Venipuncture / Unknown 05/22/2024 7:43 AM EDT 05/22/2024 8:17 AM EDT Van Bills DO LAB BLOOD ORDERABLES LABORATORY [facility] [address] [place] [address] * HEMOGLOBIN A1C (05/22/2024 7:43 AM EDT) [facility] Hemoglobin A1C 5.0 4.0 - 5.6 % 05/22/2024 8:35 AM EDT LABORATORY [facility] Comment:The use of HbA1c to monitor glycemic status is based on normal hemoglobin and HbA composition. This test should not be used in patients with abnormal hemoglobin that affects the half life of the red blood cell or the in vivo glycation rates. Estimated Average Glucose 97 <126 mg/dL 05/22/2024 8:35 AM EDT LABORATORY [facility] Blood Venous blood specimen / Unknown Venipuncture / Unknown 05/22/2024 7:43 AM EDT 05/22/2024 8:17 AM EDT Lewis Langford MD LAB BLOOD ORDERABLES Performing Organization Address [facility] Co de Phone Number LABORATORY [facility] [address] [place] [address] * (ABNORMAL) TROPONIN T, HIGH SENSITIVITY (05/21/2024 8:11 PM EDT) [facility] Troponin T, High Sensitivity 162(HH) <=14 ng/L 05/21/2024 8:47 PM EDT LABORATORY [facility] Comment:Result may be falsel y decreased due to hemolysis. Blood Venous blood specimen / Unknown Venipuncture / Unknown 05/21/2024 8:11 PM EDT 05/21/2024 8:17 PM EDT Lewis Langford MD LAB BLOOD ORDERABLES Performing Organization Address [facility] de Phone Number LABORATORY [facility] [address] [place] [address] * (ABNORMAL) CBC (05/21/2024 8:11 PM EDT) [facility] WBC 3.64(L) 4.00 - 10.80 K/uL 05/21/2024 8:25 PM EDT LABORATORY [facility] RBC 2.82 3.85 - 5.15 M/uL 05/21/2024 8:25 PM EDT LABORATORY [facility] HGB 9.2(L) 12.0 - 15.3 g/dL 05/21/2024 8:25 PM EDT LABORATORY [facility] HCT 30.4(L) 36.0 - 45.2 % 05/21/2024 8:25 PM EDT LABORATORY [facility] MCV 107.8 81.5 - 97.5 fL 05/21/2024 8:25 PM EDT LABORATORY [facility] MCH 32.6 27.0 - 34.0 pg 05/21/2024 8:25 PM EDT LABORATORY [facility] MCHC 30.3 32.0 - 36.0 g/dL 05/21/2024 8:25 PM EDT LABORATORY [facility] RDW 22.5 11.5 - 15.5 % 05/21/2024 8:25 PM EDT LABORATORY [facility] PLT 119(L) 140 - 400 K/uL 05/21/2024 8:25 PM EDT LABORATORY [facility] MPV 9.7 6.6 - 11.1 fL 05/21/2024 8:25 PM EDT LABORATORY [facility] nRBCs 0 <=0 /100 WBCs 05/21/2024 8:25 PM EDT LABORATORY [facility] Blood Venous blood specimen / Unknown Venipuncture / Unknown 05/21/2024 8:11 PM EDT 05/21/2024 8:17 PM EDT Lewis Langford MD LAB BLOOD ORDERABLES LABORATORY [facility] [address] [place] [address] * (ABNORMAL) BASIC METABOLIC PANEL (05/21/2024 8:11 PM EDT) BUN 15 6 - 20 mg/dL 05/21/2024 8:47 PM EDT LABORATORY [facility] CREATININE 2.8(H) 0.5 - 1.0 mg/dL 05/21/2024 8:47 PM EDT LABORATORY [facility] EGFR 22(L) >=60 mL/min 05/21/2024 8:47 PM EDT LABORATORY [facility] Comment:eGFR is calculated b ased on the CKD-EPI 2020 equation. SODIUM 132(L) 135 - 146 mmol/L 05/21/2024 8:47 PM EDT LABORATORY [facility] POTASSIUM 4.3 3.5 - 5.1 mmol/L 05/21/2024 8:47 PM EDT LABORATORY [facility] Comment:Results may be false ly elevated due to hemolysis. CHLORIDE 93(L) 98 - 107 mmol/L 05/21/2024 8:47 PM EDT LABORATORY [facility] CO2 27 22 - 32 mmol/L 05/21/2024 8:47 PM EDT LABORATORY [facility] ANION GAP 12 7 - 15 mmol/L 05/21/2024 8:47 PM EDT LABORATORY [facility] GLUCOSE 126(H) 70 - 120 mg/dL 05/21/2024 8:47 PM EDT LABORATORY [facility] CALCIUM 9.5 8.4 - 10.2 mg/dL 05/21/2024 8:47 PM EDT LABORATORY [facility] Blood Venous blood specimen / Unknown Venipuncture / Unknown 05/21/2024 8:11 PM EDT 05/21/2024 8:17 PM EDT Lewis Langford MD LAB BLOOD ORDERABLES LABORATORY [place] [address] [place] [address] * POTASSIUM, WHOLE BLOOD (05/21/2024 8:11 PM EDT) Pathologist [facility] [place] POTASSIUM - POCT 3.9 3.5 - 5.1 mmol/L 05/21/2024 8:26 PM EDT LABORATORY [facility] Blood Venous blood specimen / Unknown Venipuncture / Unknown 05/21/2024 8:11 PM EDT 05/21/2024 8:17 PM EDT Narrative LABORATORY [facility] - 05/21/2024 8:26 PM EDT Results rechecked. Lewis Langford MD LAB BLOOD ORDERABLES LABORATORY [place] [address] [place] [address] * FOLIC ACID (05/21/2024 2:01 PM EDT) Folic Acid 8.0 >4.5 ng/mL 05/21/2024 3:19 PM EDT LABORATORY [facility] Blood Venous blood specimen / Unknown Venipuncture / Unknown 05/21/2024 2:01 PM EDT 05/21/2024 2:10 PM EDT Lewis Langford MD LAB BLOOD ORDERABLES Performing Organization Address City/[facility]/ZIP Co de Phone Number LABORATORY [facility] [address] [place] [address] * VITAMIN B12 (05/21/2024 2:01 PM EDT) [facility] Vitamin B12 951 232 - 1,245 pg/mL 05/21/2024 3:19 PM EDT LABORATORY [facility] Blood Venous blood specimen / Unknown Venipuncture / Unknown 05/21/2024 2:01 PM EDT 05/21/2024 2:10 PM EDT Lewis Langford MD LAB BLOOD ORDERABLES Performing Organization Address [facility] Co de Phone Number LABORATORY [facility] [address] [place] [address] * EKG (05/21/2024 12:33 PM EDT) 05/21/2024 12:3 3 PM EDT Narrative Procedure Note Braydon Kelley DO - 05/21/2024 12:33 PM EDT REASON FOR STUDY: Notify provider if obtaining EKG;Chest pain CONCLUSIONS: Normal sinus rhythm High QRS voltage may be normal variant or due to lve Anterolateral infarct Prolonged QT interval or tu fusion, consider myocardial disease,electrolyte imbalance, or drug effects Ventricular Rate: 74 Atrial Rate: 74 TX Interval: 160 QRS Duration: 102 QT/QTc: 458/508 ms P-R-T [place]: 45 : -28 : 16 degrees Seda Lind DO EKG Performing Organization Address [facility] Co de Phone Number [facility]Blog[facility] CARDIOLOGY * (ABNORMAL) GLUCOSE METER, POINT OF CARE (05/21/2024 11:21 AM EDT) Pathologist [facility] GLUCOSE - POCT 122(H) 70 - 120 mg/dL 05/21/2024 11:46 AM EDT [employer] Blood Whole blood specimen / Unknown 05/21/2024 11:21 AM EDT 05/21/2024 11:46 AM EDT Harrison Avila DO LAB POINT OF CARE TE ST DOCKED DEVICE UNSOLICITED RESULTS [facility] [address] [place] [address] * ECHO, COMPLETE (2D), TRANS-THORACIC (05/21/2024 10:41 AM EDT) Pathologist [facility] LEFT VENTRICULAR EJECTION FRACTION 41 % [facility] CARDIOLOGY 05/21/2024 9:41 AM EDT Seda Lind DO ECHOCARDIOLOGY Performing Organization Address City/[facility]/ZIP Co de Phone Number [facility] CARDIOLOGY * (ABNORMAL) POTASSIUM, WHOLE BLOOD (05/21/2024 10:25 AM EDT) Pathologist [facility] [place] POTASSIUM - POCT 6.0(H) 3.5 - 5.1 mmol/L 05/21/2024 10:36 AM EDT LABORATORY [facility] Blood Venous blood specimen / Unknown Venipuncture / Unknown 05/21/2024 10:25 AM EDT 05/21/2024 10:32 AM EDT Lewis Langford MD LAB BLOOD ORDERABLES Performing Organization Address City/[facility] Co de Phone Number LABORATORY [facility] [address] [place] [address] * (ABNORMAL) TROPONIN T, HIGH SENSITIVITY (05/21/2024 9:12 AM EDT) Pathologist [facility] [place] Troponin T, High Sensitivity 176(HH) <=14 ng/L 05/21/2024 1:20 PM EDT LABORATORY [facility] Blood Venous blood specimen / Unknown Capillary / Unknown 05/21/2024 9:12 AM EDT 05/21/2024 9:22 AM EDT Lewis Langford MD LAB BLOOD ORDERABLES Performing Organization Address City/[facility]/ZIP Co de Phone Number LABORATORY [facility] [address] [place] [address] * (ABNORMAL) RENAL FUNCTION PANEL (05/21/2024 9:12 AM EDT) BUN 37(H) 6 - 20 mg/dL 05/21/2024 9:49 AM EDT LABORATORY [facility] CREATININE 5.2(H) 0.5 - 1.0 mg/dL 05/21/2024 9:49 AM EDT LABORATORY [facility] EGFR 10(L) >=60 mL/min 05/21/2024 9:49 AM EDT LABORATORY [facility] Comment:eGFR is calculated b ased on the CKD-EPI 2020 equation. SODIUM 134(L) 135 - 146 mmol/L 05/21/2024 9:49 AM EDT LABORATORY [facility] POTASSIUM 6.1(H) 3.5 - 5.1 mmol/L 05/21/2024 9:49 AM EDT LABORATORY [facility] CHLORIDE 95(L) 98 - 107 mmol/L 05/21/2024 9:49 AM EDT LABORATORY [facility] CO2 25 22 - 32 mmol/L 05/21/2024 9:49 AM EDT LABORATORY [facility] ANION GAP 14 7 - 15 mmol/L 05/21/2024 9:49 AM EDT LABORATORY [facility] GLUCOSE 101 70 - 120 mg/dL 05/21/2024 9:49 AM EDT LABORATORY [facility] CALCIUM 9.5 8.4 - 10.2 mg/dL 05/21/2024 9:49 AM EDT LABORATORY [facility] Albumin 3.6(L) 3.8 - 5.0 g/dL 05/21/2024 9:49 AM EDT LABORATORY [facility] Phosphorus 5.8(H) 2.5 - 4.8 mg/dL 05/21/2024 9:49 AM EDT LABORATORY [facility] Blood Venous blood specimen / Unknown Capillary / Unknown 05/21/2024 9:12 AM EDT 05/21/2024 9:22 AM EDT Kenneth Benjamin MD LAB BLOOD ORDERABLES LABORATORY [facility] [address] [place] [address] * (ABNORMAL) RETICULOCYTE PANEL (05/21/2024 6:03 AM EDT) Pathologist [facility] [place] Reticulocyte Percent 4.39(H) 0.80 - 1.90 % 05/21/2024 5:14 PM EDT LABORATORY [facility] Absolute Reticulocyte 113.7(H) 31.3 - 100.1 K/uL 05/21/2024 5:14 PM EDT LABORATORY GMC Immature Reticuloctye Fraction 32.3(H) 2.5 - 20.6 % 05/21/2024 5:14 PM EDT LABORATORY GMC Reticulocyte Hemoglobin 35.1 29.7 - 37.4 pg 05/21/2024 5:14 PM EDT LABORATORY [facility] Blood Venous blood specimen / Unknown Venipuncture / Unknown 05/21/2024 6:03 AM EDT 05/21/2024 6:35 AM EDT Lewis Langford MD LAB BLOOD ORDERABLES Performing Organization Address City/State/[facility] Co de Phone Number LABORATORY GM [address] [place] [address] * (ABNORMAL) CBC (05/21/2024 6:03 AM EDT) Pathologist [facility] [place] WBC 4.49 4.00 - 10.80 K/uL 05/21/2024 6:50 AM EDT LABORATORY [facility] RBC 2.56 3.85 - 5.15 M/uL 05/21/2024 6:50 AM EDT LABORATORY [facility] HGB 8.7(L) 12.0 - 15.3 g/dL 05/21/2024 6:50 AM EDT LABORATORY [facility] HCT 26.2(L) 36.0 - 45.2 % 05/21/2024 6:50 AM EDT LABORATORY [facility] MCV 102.3 81.5 - 97.5 fL 05/21/2024 6:50 AM EDT LABORATORY [facility] MCH 34.0 27.0 - 34.0 pg 05/21/2024 6:50 AM EDT LABORATORY [facility] MCHC 33.2 32.0 - 36.0 g/dL 05/21/2024 6:50 AM EDT LABORATORY [facility] RDW 22.6 11.5 - 15.5 % 05/21/2024 6:50 AM EDT LABORATORY [facility] PLT 126(L) 140 - 400 K/uL 05/21/2024 6:50 AM EDT LABORATORY [facility] MPV 10.0 6.6 - 11.1 fL 05/21/2024 6:50 AM EDT LABORATORY [facility] nRBCs 0 <=0 /100 WBCs 05/21/2024 6:50 AM EDT LABORATORY [facility] Blood Venous blood specimen / Unknown Venipuncture / Unknown 05/21/2024 6:03 AM EDT 05/21/2024 6:35 AM EDT Seda [employer] LAB BLOOD ORDE RABLES Performing Organization Address City/[facility]/ZIP Co de Phone Number LABORATORY [facility] [address] [place] [address] * TYPE AND SCREEN (05/20/2024 11:57 PM EDT) ABO A 05/21/2024 12:57 AM EDT LABORATORY [facility] BLOOD BANK Rh Positive 05/21/2024 12:57 AM EDT LABORATORY [facility] BLOOD BANK Red Blood Cell Antibody Screen Negative 05/21/2024 12:57 AM EDT LABORATORY [facility] BLOOD BANK Specimen Expiration Date 05/23/2024 23:59 05/21/2024 12:57 AM EDT LABORATORY [facility] BLOOD BANK Blood Venous blood specimen / Unknown Venipuncture / Unknown 05/20/2024 11:57 PM EDT 05/21/2024 12:20 AM EDT Seda Lind [employer] LAB BLOOD BANK TEST ORDERABLES Performing Organization Address [facility]/ZIP Co de Phone Number LABORATORY [facility] BLOOD BANK [address] [place] [address] * (ABNORMAL) COMPREHENSIVE METABOLIC PANEL (05/20/2024 11:37 PM EDT) BUN 31(H) 6 - 20 mg/dL 05/21/2024 12:34 AM EDT LABORATORY [facility] CREATININE 4.6(H) 0.5 - 1.0 mg/dL 05/21/2024 12:34 AM EDT LABORATORY [facility] EGFR 12(L) >=60 mL/min 05/21/2024 12:34 AM EDT LABORATORY [facility] Comment:eGFR is calculated b ased on the CKD-EPI 2020 equation. SODIUM 134(L) 135 - 146 mmol/L 05/21/2024 12:34 AM EDT LABORATORY [facility] POTASSIUM 5.5(H) 3.5 - 5.1 mmol/L 05/21/2024 12:34 AM EDT LABORATORY [facility] CHLORIDE 95(L) 98 - 107 mmol/L 05/21/2024 12:34 AM EDT LABORATORY [facility] CO2 25 22 - 32 mmol/L 05/21/2024 12:34 AM EDT LABORATORY [facility] ANION GAP 14 7 - 15 mmol/L 05/21/2024 12:34 AM EDT LABORATORY [facility] GLUCOSE 113 70 - 120 mg/dL 05/21/2024 12:34 AM EDT LABORATORY [facility] Albumin 3.7(L) 3.8 - 5.0 g/dL 05/21/2024 12:34 AM EDT LABORATORY [facility] AST 27 10 - 35 U/L 05/21/2024 12:34 AM EDT LABORATORY G[facility] Comment:Results may be false ly elevated due to hemolysis. Alkaline Phosphatase 146(H) 35 - 130 U/L 05/21/2024 12:34 AM EDT LABORATORY [facility] Bilirubin, Total 0.4 <=1.2 mg/dL 05/21/2024 12:34 AM EDT LABORATORY [facility] CALCIUM 9.6 8.4 - 10.2 mg/dL 05/21/2024 12:34 AM EDT LABORATORY [facility] Protein 5.9(L) 6.0 - 8.3 g/dL 05/21/2024 12:34 AM EDT LABORATORY [facility] ALT 15 10 - 35 U/L 05/21/2024 12:34 AM EDT LABORATORY [facility] Blood Capillary blood specimen / Unknown Capillary / Unknown 05/20/2024 11:37 PM EDT 05/20/2024 11:44 PM EDT Seda Lind DO LAB BLOOD ORDE KEO Performing Organization Address City/[facility]/ZIP Co de Phone Number LABORATORY [facility] [address] [place] [address] * (ABNORMAL) CBC (05/20/2024 11:37 PM EDT) WBC 4.07 4.00 - 10.80 K/uL 05/21/2024 12:23 AM EDT LABORATORY [facility] RBC 2.65 3.85 - 5.15 M/uL 05/21/2024 12:23 AM EDT LABORATORY [facility] HGB 8.6(L) 12.0 - 15.3 g/dL 05/21/2024 12:23 AM EDT LABORATORY [facility] HCT 27.0(L) 36.0 - 45.2 % 05/21/2024 12:23 AM EDT LABORATORY [facility] MCV 101.9 81.5 - 97.5 fL 05/21/2024 12:23 AM EDT LABORATORY [facility] MCH 32.5 27.0 - 34.0 pg 05/21/2024 12:23 AM EDT LABORATORY [facility] MCHC 31.9 32.0 - 36.0 g/dL 05/21/2024 12:23 AM EDT LABORATORY [facility] RDW 22.7 11.5 - 15.5 % 05/21/2024 12:23 AM EDT LABORATORY [facility] PLT 113(L) 140 - 400 K/uL 05/21/2024 12:23 AM EDT LABORATORY [facility] MPV 9.5 6.6 - 11.1 fL 05/21/2024 12:23 AM EDT LABORATORY [facility] nRBCs 0 <=0 /100 WBCs 05/21/2024 12:23 AM EDT LABORATORY [facility] Blood Capillary blood specimen / Unknown Capillary / Unknown 05/20/2024 11:37 PM EDT 05/20/2024 11:44 PM EDT Seda Lind DO LAB BLOOD [facility] [address] [place] [address] documented in this encounter Visit Diagnoses Diagnosis Acute blood loss anemia- Primary Acute posthemorrhagic anemia Acute blood loss anemia Acute posthemorrhagic anemia Chest pain, unspecified type Electrolyte abnormality Electrolyte and fluid disorders not elsewhere classified Depression with anxiety Dysthymic disorder ESRD (end stage renal disease) on dialysis ([facility]) End stage renal disease Chest pain Chest pain, unspecified Bleeding hemorrhoids Unspecified hemorrhoids with other complication CAD (coronary artery disease) Coronary atherosclerosis of unspecified type of vessel, [place] or graft HFrEF (heart failure with reduced ejection fraction) ([facility]) Depression with anxiety Dysthymic disorder Hyperkalemia Hyperpotassemia S/P primary angioplasty with coronary stent Postsurgical percutaneous transluminal coronary angioplasty status Chronic total occlusion of coronary artery Coronary atherosclerosis of unspecified type of vessel, [place] or graft documented in this encounter Administered Medications Inactive Administered Medications - up to 3 most recent administrations Medication Order MAR Action Action Date Dose Rate Site 1/2 NSS infusion Intravenous, at 25 mL/hr, CONTINUOUS, Starting on Sat05/22/24 at 1300, Until 05/23/24 at 0924, Intra-Op Continue from Pre-Op 05/22/2024 1:40 PM EDT 25 mL/hr New Bag 05/22/2024 12:31 PM EDT 25 mL/hr Acetaminophen (Tylenol) tab 975 mg 975 mg, Oral, Q6H PRN Pain, Mild, Starting on Sat05/20/24 at 205, Until 05/23/24 at 2208, Maximum of 4 grams (4000 mg) per day. amLODIPine (Norvasc) tab 2.5 mg 2.5 mg, Oral, Daily(AM), First dose on Sat05/22/24 at 1100, Until Discontinued Given 05/23/2024 1:07 PM EDT 2.5 mg Given 05/22/2024 11:20 AM EDT 2.5 mg aspirin chew tab 81 mg 81 mg, Oral, Daily(AM), First dose on Sat05/21/24 at 0900, Until Discontinued Given 05/23/2024 1:07 PM EDT 81 mg Given 05/22/2024 10:15 AM EDT 81 mg Given 05/21/2024 10:41 AM EDT 81 mg atorvaSTATin (Lipitor) tab 80 mg 80 mg, Oral, Q1700, First dose on Sat05/21/24 at 1700, Until Discontinued Given 05/22/2024 5:05 PM EDT 80 mg Given 05/21/2024 5:49 PM EDT 80 mg buPROPion (Wellbutrin) tab 75 mg 75 mg, Oral, BID (.AM/PM), First dose on Sat05/21/24 at 0900, Until Discontinued, [Therapeutic Interchange from Wellbutrin XL] Given 05/23/2024 1:07 PM EDT 75 mg Given 05/22/2024 8:54 PM EDT 75 mg Given 05/22/2024 10:15 AM EDT 75 mg calcium acetate (Phos Binder) (Phoslo) cap/tab 2,001 mg 2,001 mg, Oral, WITH MEALS, First dose on Sat05/21/24 at 0800, Until Discontinued Given 05/23/2024 1:06 PM EDT 2,00 1 mg Given 05/22/2024 5:07 PM EDT 2,001 mg carBAMazepine ER (Carbatrol) cap 200 mg 200 mg, Oral, Q12H, First dose on Sat05/20/24 at 2130, Until Discontinued Given 05/23/2024 1:09 PM EDT 200 mg Given 05/22/2024 9:05 PM EDT 200 mg Given 05/22/2024 10:15 AM EDT 200 mg cinacalcet (Sensipar) tab 90 mg 90 mg, Oral, DAILY(1900), First dose on Sat05/21/24 at 1900, Until Discontinued, daily with dinner Given 05/22/2024 6:51 PM EDT 90 mg Given 05/21/2024 7:03 PM EDT 90 mg clopidogrel (pLAVix) tab 75 mg 75 mg, Oral, Daily(AM), First dose on Sat05/21/24 at 0900, Until Discontinued Given 05/23/2024 1:08 PM EDT 75 mg Given 05/22/2024 10:15 AM EDT 75 mg Given 05/21/2024 10:41 AM EDT 75 mg Ferrous Sulfate (Feosol) tab 325 mg 325 mg, Oral, DAILY NOON, First dose on Sat05/23/24 at 1200, Until Discontinued, Component of Vitron C Given 05/23/2024 1:08 PM EDT 325 mg FLEET ADULT enema 1 Enema 1 Enema, Rectal, ONCE, On Sat05/22/24 at 0915, For 1 dose Given 05/22/2024 9:35 AM EDT 1 Enema Gabapentin (Neurontin) cap 200 mg 200 mg, Oral, BID (.AM/PM), First dose on Sat05/20/24 at 2130, Until Discontinued Given 05/23/2024 1:07 PM EDT 200 mg Given 05/22/2024 8:53 PM EDT 200 mg Given 05/22/2024 10:14 AM EDT 200 mg LORAzepam (Ativan) tab 0.5 mg 0.5 mg, Oral, DAILY PRN Other, prior to dialysis, Starting on Sat05/20/24 at 2055, Until Sat05/23/24 at 2208 Given 05/23/2024 8:39 AM EDT 0.5 mg Given 05/21/2024 11:51 AM EDT 0.5 mg metoprolol succinate XL (toPROL XL) tab 25 mg 25 mg, Oral, BID (.AM/PM), First dose on Sat05/20/24 at 2200, Until Discontinued, This med should NOT be Crushed or Chewed. Given 05/20/2024 9:54 PM EDT 25 mg metoprolol succinate XL (toPROL XL) tab 25 mg 25 mg, Oral, BID (.AM/PM), First dose on Sat05/20/24 at 2215, Until Discontinued, Hold for HR less than 60 or SBP below 100 and notify service if dose is held This med should NOT be Crushed or Chewed. Given 05/22/2024 10:15 AM EDT 25 mg Given 05/21/2024 9:05 PM EDT 25 mg Given 05/21/2024 10:41 AM EDT 25 mg metoprolol succinate XL (toPROL XL) tab 50 mg 50 mg, Oral, BID (.AM/PM), First dose (after last modification) on Sat05/22/24 at 2100, Until Discontinued, Hold for HR less than 60 or SBP below 100 and notify service if dose is held This med should NOT be Crushed or Chewed. Given 05/23/2024 1: 08 PM EDT 50 mg Given 05/22/2024 8:54 PM EDT 50 mg morphine sulfate inj 1 mg 1 mg, IV Push, Q4H PRN Pain, Severe, Starting on Sat05/20/24 at 2050, Until Sat05/22/24 at 1021 Given 05/22/2024 6:07 AM EDT 1 mg Given 05/22/2024 12:40 AM EDT 1 mg Given 05/21/2024 8:21 PM EDT 1 mg omeprazole (PriLOSEC) cap 20 mg 20 mg, Oral, Daily(AM), First dose on Sat05/23/24 at 0945, Until Discontinued, This med should NOT be Crushed or Chewed Given 05/23/2024 1:17 PM EDT 20 mg ondansetron (Zofran) inj 4 mg 4 mg, IV Push, ONCE, On Elke 05/21/24 at 2315, For 1 dose Given 05/21/2024 11:01 PM EDT 4 mg oxygen GAS Inhalation, OXYGEN, First dose on Sat05/22/24 at 1600, Until Discontinued, Device/Managed by: Low Flow Device, Goal SPO2 (%): 91-95, Starting Device: Nasal Cannula, Initial Flow Rate (LPM): 2, Lowest Support: Nasal Cannula: Flow 0-6 LPM. Titrate up/down by 1 LPM., Titration Interval: Q2 minutes and as needed., Notify Provider: For sudden DECREASE in resting SPO2 to less than 85% and when escalating delivery device., Wean patient off Oxygen when the oxygen saturation is greater than or equal to 93% Oxygen On 05/23/2024 8:00 AM EDT Pantoprazole (Protonix) inj 40 mg 40 mg, IV Push, Q12H, First dose on Sat05/20/24 at 2130, Until Discontinued, IV push instructions: Flush I.V. Line before and after administration. In-line filter not required. 2-minute infusion: The volume of reconstituted solution (4mg/ml) to be injected may be administered intravenously over at least 2 minutes. ( Dilute each vial with 10 ml of 0.9% saline PF) Given 05/22/2024 8:59 PM EDT 40 mg Given 05/21/2024 9:18 PM EDT 40 mg Given 05/21/2024 10:41 AM EDT 40 mg Polyethylene Glycol 3350 (Miralax) oral powder 17 g 17 g, Oral, BID (.AM/PM), First dose on Sat05/20/24 at 2200, Until Discontinued, Mix in 8 oz of water, juice, soda, coffee, or tea. Given 05/23/2024 1:08 PM EDT 17 g Given 05/21/2024 9:06 PM EDT 17 g Given 05/20/2024 9:55 PM EDT 17 g Polyethylene Glycol 3350 (Miralax) oral powder 238 g 238 g, Oral, ONCE, On Sat05/21/24 at 1445, For 1 dose, Mix entire contents of 238 grams of Miralax bottle with 64 oz of clear or light colored Gatorade or water. Stir/shake until entire contents are completely dissolved. Have the patient drink 8 oz (240 mL) of solution every 15 minutes until solution is gone. Drink the solution slowly to prevent nausea and stomach upset. You may drink it directly or use a straw. Given 05/21/2024 5:49 PM EDT 238 g sodium chloride 0.9 % flush/inj 3 mL 3 mL, IV Push, PRN Other, Line Patency, Starting on Sat05/20/24 at 203, Until 05/23/24 at 2208, Do not flush if lock, PICC, or central line not in place, IV infusing or unable to flush Sodium Zirconium Cyclosilicate (Lokelma) oral powder PACK 10 g 10 g, Oral, Q4HNOW, First dose on Sat05/21/24 at 1045, Last dose on Sat05/21/24 at 1445, For 2 doses, Empty entire contents of the packet(s) [...] K is less than 3.5 mmol/L Given 05/21/2024 5:48 PM EDT 10 g Given 05/21/2024 10:41 AM EDT 10 g Vitamin C (Ascorbic Acid) tab 250 mg 250 mg, Oral, DAILY NOON, First dose on 05/23/24 at 1200, Until Discontinued, Component of Vitron C Given 05/23/2024 1:07 PM EDT 250 mg documented in this encounter Active and Recently Administered Medications Times are shown in EDT. Scheduled Medication Order 05/21/2024 05/22/2024 05/23/2024 amLODIPine (Norvasc) tab 2.5 mg 2.5 mg, Oral, Daily(AM), First dose on Sat05/22/24 at 1100, Until Discontinued 1120 (Given - Provider: Leah Jimenez RN) 1307 (Given - Provider: Lisseth Deras, RN) aspirin chew tab 81 mg 81 mg, Oral, Daily(AM), First dose on Sat05/21/24 at 0900, Until Discontinued 1041 (Given - Provider: Kristi Guerrero RN) 1015 (Given - Provider: Leah Jimenez RN) 130 (Given - Provider: Lisseth Deras RN) atorvaSTATin (Lipitor) tab 80 mg 80 mg, Oral, Q1700, First dose on Sat05/21/24 at 1700, Until Discontinued 174 (Given - Provider: SN Denis) 170 (Given - Provider: Leah Jimenez RN) buPROPion (Wellbutrin) tab 75 mg 75 mg, Oral, BID (.AM/PM), First dose on Sat05/21/24 at 0900, Until Discontinued, [Therapeutic Interchange from Wellbutrin XL] 1041 (Given - Provider: Kristi Guerrero RN)210 (Not Given - Provider: SN Denis - Reason: Refused-Notify Provider - Comment: per pt, she only takes 1x/day in AM) 1015 (Given - Provider: Leah Jimenez RN)205 (Given - Provider: Maisha Eddy RN) 1307 (Given - Provider: Lisseth Deras RN) calcium acetate (Phos Binder) (Phoslo) cap/tab 2,001 mg 2,001 mg, Oral, WITH MEALS, First dose on Sat05/21/24 at 0800, Until Discontinued 0800 (Not Given - Provider: Kristi Guerrero RN - Reason: NPO - Comment: npo except meds)1200 (Not Given - Provider: Leah Jimenez RN - Reason: Parameter(s) Not Met - Comment: patient at dialysis and only taking clear liquids, no food.)1700 (Not Given - Provider: Leah Jimenez RN - Reason: Parameter(s) Not Met) 0800 (Not Given - Provider: Leah Jimenez RN - Reason: Parameter(s) Not Met)1200 (OR/Procedure - Provider: Leah Jimenez RN)1707 (Given - Provider: Leah Jimenez RN) 0800 (Not Given - Provider: Lisseth Deras RN - Reason: Other-Notify Provider - Comment: in hd no breakfast)1306 (Given - Provider: Lisseth Deras RN) carBAMazepine ER (Carbatrol) cap 200 mg 200 mg, Oral, Q12H, First dose on Sat05/20/24 at 2130, Until Discontinued 1041 (Given - Provider: Kristi Guerrero RN)210 (Given - Provider: SN Denis) 1015 (Given - Provider: Leah Jimenez RN)210 (Given - Provider: Maisha Eddy RN) 1309 (Given - Provider: Lisseth Deras RN) cinacalcet (Sensipar) tab 90 mg 90 mg, Oral, DAILY(1900), First dose on Sat05/21/24 at 1900, Until Discontinued, daily with dinner 1903 (Given - Provider: SN Denis) 185 (Given - Provider: Leah Jimenez RN) clopidogrel (pLAVix) tab 75 mg 75 mg, Oral, Daily(AM), First dose on Sat05/21/24 at 0900, Until Discontinued 1041 (Given - Provider: Kristi Guerrero RN) 1015 (Given - Provider: Leah Jimenez RN) 1308 (Given - Provider: Lisseth Deras RN) Ferrous Sulfate (Feosol) tab 325 mg 325 mg, Oral, DAILY NOON, First dose on Sat05/23/24 at 1200, Until Discontinued, Component of Vitron C 1308 (Given - Provider: Lisseth Deras RN) FLEET ADULT enema 1 Enema (COMPLETED) 1 Enema, Rectal, ONCE, On Sat05/22/24 at 0915, For 1 dose 0935 (Given - Provider: Luc Swan, [facility] Instructor) Gabapentin (Neurontin) cap 200 mg 200 mg, Oral, BID (.AM/PM), First dose on Sat05/20/24 at 2130, Until Discontinued 1040 (Given - Provider: Kristi Guerrero RN)2104 (Given - Provider: SN Denis) 101 (Given - Provider: Leah Jimenez RN)2052 (Given - Provider: Maisha Eddy RN) 130 (Given - Provider: Lisseth Deras RN) metoprolol succinate XL (toPROL XL) tab 25 mg (CANCELED) 25 mg, Oral, BID (.AM/PM), First dose on Sat05/20/24 at 2215, Until Discontinued, Hold for HR less than 60 or SBP below 100 and notify service if dose is held This med should NOT be Crushed or Chewed. 1040 (Given - Provider: Kristi Guerrero RN)2104 (Given - Provider: SN Denis) 1014 (Given - Provider: Leah Jimenez RN) metoprolol succinate XL (toPROL XL) tab 50 mg 50 mg, Oral, BID (.AM/PM), First dose (after last modification) on Sat05/22/24 at 2100, Until Discontinued, Hold for HR less than 60 or SBP below 100 and notify service if dose is held This med should NOT be Crushed or Chewed. 2053 (Given - Provider: Maisha Eddy RN - Comment: bp 144/30 hr 72) 1308 (Given - Provider: Lisseth Deras RN) omeprazole (PriLOSEC) cap 20 mg 20 mg, Oral, Daily(AM), First dose on Sat05/23/24 at 0945, Until Discontinued, This med should NOT be Crushed or Chewed 1317 (Given - Provider: Lisseth Deras RN) ondansetron (Zofran) inj 4 mg (COMPLETED) 4 mg, IV Push, ONCE, On Elke 05/21/24 at 2315, For 1 dose 2301 (Given - Provider: Adolfo Self RN) oxygen GAS Inhalation, OXYGEN, First dose on Sat05/22/24 at 1600, Until Discontinued, Device/Managed by: Low Flow Device, Goal SPO2 (%): 91-95, Starting Device: Nasal Cannula, Initial Flow Rate (LPM): 2, Lowest Support: Nasal Cannula: Flow 0-6 LPM. Titrate up/down by 1 LPM., Titration Interval: Q2 minutes and as needed., Notify Provider: For sudden DECREASE in resting SPO2 to less than 85% and when escalating delivery device., Wean patient off Oxygen when the oxygen saturation is greater than or equal to 93% 1600 (Oxygen Off - Provider: Leah Jimenez RN) 0000 (Oxygen Off - Provider: Maisha Eddy RN)0800 (Oxygen On - Provider: Lisseth Deras RN)1600 (Due) Pantoprazole (Protonix) inj 40 mg (CANCELED) 40 mg, IV Push, Q12H, First dose on Sat05/20/24 at 2130, Until Discontinued, IV push instructions: Flush I.V. Line before and after administration. In-line filter not required. 2-minute infusion: The volume of reconstituted solution (4mg/ml) to be injected may be administered intravenously over at least 2 minutes. ( Dilute each vial with 10 ml of 0.9% saline PF) 104 (Given - Provider: Kristi Guerrero RN)2117 (Given - Provider: SN Denis) 1015 (Not Given - Provider: Leah Jimenez RN - Reason: Parameter(s) Not Met - Comment: IV line leaking and removed, difficult stick and IV team not able to get one and critical response nurse tried and not able to get one.)2058 (Given - Provider: Maisha Eddy RN) 0900 (Not Given - Provider: Lisseth Deras RN - Reason: Other-Notify Provider - Comment: in hd) Polyethylene Glycol 3350 (Miralax) oral powder 17 g 17 g, Oral, BID (.AM/PM), First dose on Sat05/20/24 at 2200, Until Discontinued, Mix in 8 oz of water, juice, soda, coffee, or tea. 1131 (Not Given - Provider: Leah Jimenez RN - Reason: NPO - Comment: pt wants to take it later)2105 (Given - Provider: SN Denis) 0900 (Not Given - Provider: Leah Jimenez RN - Reason: NPO)2100 (Not Given - Provider: Maisha Eddy RN - Reason: Refused-Notify Provider) 1308 (Given - Provider: Lisseth Deras RN) Polyethylene Glycol 3350 (Miralax) oral powder 238 g (COMPLETED) 238 g, Oral, ONCE, On Elke 05/21/24 at 1445, For 1 dose, Mix entire contents of 238 grams of Miralax bottle with 64 oz of clear or light colored Gatorade or water. Stir/shake until entire contents are completely dissolved. Have the patient drink 8 oz (240 mL) of solution every 15 minutes until solution is gone. Drink the solution slowly to prevent nausea and stomach upset. You may drink it directly or use a straw. 1749 (Given - Provider: SN Denis) Sodium Zirconium Cyclosilicate (Lokelma) oral powder PACK 10 g (COMPLETED) 10 g, Oral, Q4HNOW, First dose on Elke 05/21/24 at 1045, Last dose on Elke 05/21/24 at 1445, For 2 doses, Empty entire contents of the packet(s) into a glass with 45 mL of water. Stir well and drink immediately; if powder remains in the glass, add water, stir and drink immediately; repeat until no powder remains. Administer other oral medications at least 2 hours before or 2 hours after dose. Hold dose and notify provider if K is less than 3.5 mmol/L 1041 (Given - Provider: Kristi Guerrero RN)1748 (Given - Provider: SN Denis) Vitamin C (Ascorbic Acid) tab 250 mg 250 mg, Oral, DAILY NOON, First dose on 05/23/24 at 1200, Until Discontinued, Component of Vitron C 1307 (Given - Provider: Lisseth Deras RN) Continuous Medication Order 05/21/2024 05/22/2024 05/23/2024 1/2 NSS infusion (CANCELED) Intravenous, at 25 mL/hr, CONTINUOUS, Starting on Sat05/22/24 at 1300, Until 05/23/24 at 0924, Intra-Op 1231 (New Bag - Provider: Magan Sanchez RN)1340 (Continue from Pre-Op - Provider: Anayeli Chan CRNA)1420 (Anes Intra-Op Fluid - Provider: Anayeli Chan CRNA) 0924 (Stopped - Provider: Lisseth Deras, ROSEY) PRN Medication Order 05/21/2024 05/22/2024 05/23/2024 Acetaminophen (Tylenol) tab 975 mg 975 mg, Oral, Q6H PRN Pain, Mild, Starting on Sat05/20/24 at 205, Until 05/23/24 at 2208, Maximum of 4 grams (4000 mg) per day. LORAzepam (Ativan) tab 0.5 mg 0.5 mg, Oral, DAILY PRN Other, prior to dialysis, Starting on Sat05/20/24 at 2055, Until 05/23/24 at 2208 1151 (Given - Provider: Leah Jimenez RN) 0839 (Given - Provider: Lisseth Deras RN) Mirtazapine (Remeron) tab 7.5 mg 7.5 mg, Oral, QHS PRN Insomnia, Starting on Sat05/20/24 at 2054, Until 05/23/24 at 2208 morphine sulfate inj 1 mg (CANCELED) 1 mg, IV Push, Q4H PRN Pain, Severe, Starting on Sat05/20/24 at 2050, Until 05/22/24 at 1021 0143 (Given - Provider: Yoly Bone RN)0552 (Given - Provider: Yoly Bone RN)1052 (Given - Provider: Kristi Guerrero RN)1542 (Given - Provider: Ilene Galan, ROSEY)2020 (Given - Provider: Adolfo Self RN) 0040 (Given - Provider: Adolfo Self RN)0607 (Given - Provider: Adolfo Self RN) sodium chloride 0.9 % flush/inj 3 mL 3 mL, IV Push, PRN Other, Line Patency, Starting on Sat05/20/24 at 2038, Until 05/23/24 at 2208, Do not flush if lock, PICC, or central line not in place, IV infusing or unable to flush documented in this encounter Advance Directives * [...] Directives occurred with: Patient Care Teams Healthcare Administrative Assistant Relationship Specialty Start Date End Date Evi Aldridge MD [address] [facility] [place] [place] [address] PCP - General Family Medicine 10/21/18 documented as of this encounter
--- OUTSIDE RECORDS SUMMARY | 2024-06-29 05:21 | External Medical Summary ---
Author Name Unknown Address Unknown Organization K01:[facility] [place] [facility] [address] Laboratory Report Ordering Provider Test Date Status LOBO SUBRAMANIAN 05/22/2024 17:30:00 Final Observation Date Value Abnormality Reference (Units ) Status WBC, Total 05/22/2024 17:30:00 3.74 Below low normal 4.00-10.80 (K/uL) Final RBC 05/22/2024 17:30:00 2.65 3.85-5.15 (M/uL) Final Hemoglobin 05/22/2024 17:30:00 8.7 Below low normal 12.0-15.3 (g/dL) Final HCT 05/22/2024 17:30:00 28.3 Below low normal 36.0-45.2 (%) Final MCV 05/22/2024 17:30:00 106.8 81.5-97.5 (fL) Final MCH 05/22/2024 17:30:00 32.8 27.0-34.0 (pg) Final MCHC 05/22/2024 17:30:00 30.7 32.0-36.0 (g/dL) Final RDW 05/22/2024 17:30:00 22.1 11.5-15.5 (%) Final Platelets 05/22/2024 17:30:00 107 Below low normal 140-400 (K/uL) Final MPV 05/22/2024 17:30:00 9.2 6.6-11.1 (fL) Final Nucleated erythrocytes/100 leukocytes [Ratio] in Blood by Automated count 05/22/2024 17:30:00 0 <=0 (/100 WBCs) Final Performing Location [facility] [place] [address] [facility] [address]
--- OUTSIDE RECORDS SUMMARY | 2024-06-29 05:21 | External Medical Summary ---
Author Name Unknown Address Unknown Organization K01:[facility]ORY [facility] [place] - [facility] [address] [place] [address] Laboratory Report Ordering Provider Test Date Status GLEN TEJEDA 05/23/2024 07:19:00 Final Observation Date Value Abnormality Reference (Units ) Status BUN 05/23/2024 07:19:00 41 Above high normal 6-20 (mg/dL) Final Creatinine 05/23/2024 07:19:00 5.7 Above high normal 0.5-1.0 (mg/dL) Final Glomerular filtration rate/1.73 sq M.predicted [Volume Rate/Area] in Serum, Plasma or Blood by Creatinine-based formula (CKD-EPI) 05/23/2024 07:19:00 9 Below low normal >=60 (mL/min) Final eGFR is calculated based on the CKD-EPI 2020 equation. Sodium 05/23/2024 07:19:00 135 135-146 (m mol/L) Final Potassium 05/23/2024 07:19:00 4.2 3.5-5.1 (m mol/L) Final Cl 05/23/2024 07:19:00 93 Below low normal 98- 107 (mmol/L) Final CO2 05/23/2024 07:19:00 23 22-32 (mmo l/L) Final Anion gap 05/23/2024 07:19:00 19 Above high normal 7- 15 (mmol/L) Final Glucose 05/23/2024 07:19:00 145 Above high normal 70 -120 (mg/dL) Final Calcium 05/23/2024 07:19:00 7.4 Below low normal 8.4 -10.2 (mg/dL) Final Albumin 05/23/2024 07:19:00 3.6 Below low normal 3.8 -5.0 (g/dL) Final Phosphate 05/23/2024 07:19:00 7.1 Above high normal 2. 5-4.8 (mg/dL) Final Performing Location LAB[facility]ATORY [facility] [place] - [address] [facility] [address]
--- OUTSIDE RECORDS SUMMARY | 2024-06-29 05:21 | External Medical Summary | Summary of Care ---
Author Name Unknown Organization [facility] Address [address] [place] [address] Phone [phone] Care Team Providers Care External Relations Director Name Role Phone Adolph Aldridge MD Primary Care Provider [phone] Encounter Details Date Type Department Care Team (Latest Contact Info) Description 04/28/2024 11:30 PM EDT - 04/28/2024 11:59 PM EDT Hospital Encounter Radiology Film File [address] [place] [address] Discharge Disposition: Home - Self [...] 2 Suspended Additional Information OneTouch Delica Plus [id number] ns:DM type 2 with diabetic peripheral neuropathy [...] hemoglobin A1c goal of less than 7.0% ([facility]) Use to check sugars continuously. E 11.9 change every 10 days 3 Each 11 4 Suspended Additional Information hydrOXYzine HCl 25 MG Oral Tablet TAKE 1 TABLET BY MOUTH EVERY 6 HOURS NEEDED FOR ANXIETY 4 Suspended Dexcom G7 Senior Marketing Engineer Device USE DAILY TO CHECK BLOOD [...] and PP sugars <120. Report levels to [facility] department weekly. 10. Advised patient that Glyburide, Metformin, and insulin may be safely used during for the control of blood sugar levels. Alexandra will begin her insulin therapy today. 11. Dietary consult to be done to instruct patient on appropriate nutrition and diet to aid in control of blood sugars. 12. Recommend urine culture each trimester. 13. Recommend [facility] ultrasound for limited anatomy at 12-14 [...] if early screen is normal. 5. Recommend [facility] ultrasound for anatomy screen at 20 [...] Recovery [facility] [address] [facility] [id number] Diamond Mcgowan MD [address] [place] [address] 06/09/2024 7:00 AM EDT - 06/09/2024 8:00 AM EDT Surgery CRS Waiting [facility], Cardiac Recovery Suite Waiting Unit, [address] [place] [address] Diamond Mcgowan MD [address] [place] [address] PTCA, CARDIAC ANGIOPLASTY, PERCUTANEOUS, 1 ARTERY 06/09/2024 7:00 AM EDT Office Visit Cardiology [facility], [place] [address] [place] [address] [facility] [address] [place], [place] [id number] 07/07/2024 12:30 PM EST Office Visit Orthopaedics [facility] [address] [place] [address] Ary Rowe MD [address] [place] [address] 09/01/2024 1:40 PM EST Office Visit [facility] [address] [place] [phone] Adolph Aldridge MD [address] [place] [address] 04/01/2025 2:40 PM EDT Telemedicine Neurology [address] [place] [phone] Eros Marks DO [address] [place] [facility] [place] [address] Scheduled Procedures Name Priority Associated Diagnoses [...] this encounter Medical Devices Implanted Type Area Evp Operations Device Identifier Shelf Expiration Date Model / Serial / Lot Stent Protege Gps [id number] - [id number] Implanted:Qty : 1 on 09/29/2020 by Carmelo Ramos MD at [place] [facility] Left: Chest [employer] : VASCULAR [id number] 09/20/2022 [id number] / / [id number] Stent Viab [id number] - [id number] Implanted:Qty : 1 on 04/16/2023 by Carmelo Ramos MD at OR [facility] Right: Subclavian [employer] [id number] 01/26/2026 [id number] / [id number] / [id number] documented as of this encounter Procedures Procedure Name Priority Date/Time Associated Diagnosis Comments RADIOLOGY EXAM - GENERAL RAD (IMAGES ONLY,NO REPORT) Routine 04/28/2024 11:30 PM EDT documented in this encounter Results * RADIOLOGY EXAM - GENERAL RAD (IMAGES ONLY,NO REPORT) (04/28/2024 11:30 PM EDT) 04/28/2024 11:2 7 PM EDT Narrative Scheduling, Silent - 05/21/2024 11:33 AM EDT This is an imaging study not interpreted or resulted by a [facility] or [employer] contracted radiologist. Samantha Cevallos DO RADIOLOGY (RAD [...] Advance Directives occurred with: Patient Care Teams External Relations Director Relationship Specialty Start Date End Date Adolph Aldridge MD [address] [place] [address] PCP - General Family Medicine 10/21/18 documented as of this encounter
--- OUTSIDE RECORDS SUMMARY | 2024-06-29 05:21 | External Medical Summary ---
Author Name Unknown Address Unknown Organization K01:LABORATORY [facility] [place] [facility] [address] [facility] [address] Laboratory Report Ordering Provider Test Date Status LOBO SUBRAMANIAN 05/23/2024 07:19:00 Final Observation Date Value Abnormality Reference (Units ) Status WBC, Total 05/23/2024 07:19:00 3.61 Below low normal 4.00-10.80 (K/uL) Final RBC 05/23/2024 07:19:00 2.42 3.85-5.15 (M/uL) Final Hemoglobin 05/23/2024 07:19:00 8.1 Below low normal 12.0-15.3 (g/dL) Final HCT 05/23/2024 07:19:00 26.0 Below low normal 36.0-45.2 (%) Final MCV 05/23/2024 07:19:00 107.4 81.5-97.5 (fL) Final MCH 05/23/2024 07:19:00 33.5 27.0-34.0 (pg) Final MCHC 05/23/2024 07:19:00 31.2 32.0-36.0 (g/dL) Final RDW 05/23/2024 07:19:00 21.9 11.5-15.5 (%) Final Platelets 05/23/2024 07:19:00 100 Below low normal 140-400 (K/uL) Final MPV 05/23/2024 07:19:00 10.2 6.6-11.1 (fL) Final Nucleated erythrocytes/100 leukocytes [Ratio] in Blood by Automated count 05/23/2024 07:19:00 0 <=0 (/100 WBCs) Final Performing Location LABORATORY C - [address] [place] [address]
--- OUTSIDE RECORDS SUMMARY | 2024-06-29 05:22 | External Medical Summary ---
Author Name Unknown Address Unknown Organization K01:[facility]ORY [facility] [place] - [address] [facility] [address] Laboratory Report Ordering Provider Test Date Status GLEN TEJEDA 05/22/2024 07:43:00 Final Observation Date Value Abnormality Reference (Units ) Status BUN 05/22/2024 07:43:00 21 Above high normal 6-20 (mg/dL) Final Creatinine 05/22/2024 07:43:00 3.7 Above high normal 0.5-1.0 (mg/dL) Final Glomerular filtration rate/1.73 sq M.predicted [Volume Rate/Area] in Serum, Plasma or Blood by Creatinine-based formula (CKD-EPI) 05/22/2024 07:43:00 15 Below low normal >=60 (mL/min) Final eGFR is calculated based on the CKD-EPI 2020 equation. Sodium 05/22/2024 07:43:00 134 Below low normal 135 -146 (mmol/L) Final Potassium 05/22/2024 07:43:00 4.4 3.5-5.1 (m mol/L) Final Cl 05/22/2024 07:43:00 94 Below low normal 98- 107 (mmol/L) Final CO2 05/22/2024 07:43:00 25 22-32 (mmo l/L) Final Anion gap 05/22/2024 07:43:00 15 7-15 (mmol /L) Final Glucose 05/22/2024 07:43:00 100 70-120 (mg /dL) Final Calcium 05/22/2024 07:43:00 8.4 8.4-10.2 ( mg/dL) Final Albumin 05/22/2024 07:43:00 3.9 3.8-5.0 (g /dL) Final Phosphate 05/22/2024 07:43:00 5.7 Above high normal 2. 5-4.8 (mg/dL) Final Performing Location LABORATORY [facility] - [address] [facility] [address]
--- OUTSIDE RECORDS SUMMARY | 2024-06-29 05:22 | External Medical Summary ---
Author Name Unknown Address Unknown Organization K01:LABORATORY [place] [address] [address] [facility] [address] Laboratory Report Ordering Provider Test Date Status LOBO SUBRAMANIAN 05/21/2024 20:11:00 Final Observation Date Value Abnormality Reference (Units ) Status BUN 05/21/2024 20:11:00 15 6-20 (mg/dL) Final Creatinine 05/21/2024 20:11:00 2.8 Above high normal 0.5-1.0 (mg/dL) Final Glomerular filtration rate/1.73 sq M.predicted [Volume Rate/Area] in Serum, Plasma or Blood by Creatinine-based formula (CKD-EPI) 05/21/2024 20:11:00 22 Below low normal >=60 (mL/min) Final eGFR is calculated based on the CKD-EPI 2020 equation. Sodium 05/21/2024 20:11:00 132 Below low normal 135 -146 (mmol/L) Final Potassium 05/21/2024 20:11:00 4.3 3.5-5.1 (m mol/L) Final Results may be falsely eleva hector due to hemolysis. Cl 05/21/2024 20:11:00 93 Below low normal 98- 107 (mmol/L) Final CO2 05/21/2024 20:11:00 27 22-32 (mmo l/L) Final Anion gap 05/21/2024 20:11:00 12 7-15 (mmol /L) Final Glucose 05/21/2024 20:11:00 126 Above high normal 70 -120 (mg/dL) Final Calcium 05/21/2024 20:11:00 9.5 8.4-10.2 ( mg/dL) Final Performing Location LABORATORY [facility] - [address] [facility] [address]
--- OUTSIDE RECORDS SUMMARY | 2024-06-29 05:22 | External Medical Summary | Summary of Care ---
Author Name Unknown Organization [facility] Address [address] [place] [address] Phone [phone] Care Team Providers Care Mud Logger Name Role Phone Adolph Aldridge MD Primary Care Provider [phone] Encounter Details Date Type Department Care Team (Late st Contact Info) Description 05/20/2024 CardioDiagnostic Study Unspecified Department Bradley Cevallosysdonna Ocampoele, DO [address] [facility] [place] [address] EKG Report Allergies Active Allergy Reactions Criticality Noted Date [...] 2 Suspended Additional Information OneTouch Delica Plus [id number] ns:DM type 2 with diabetic peripheral neuropathy [...] of less than 7.0% ([facility]) Use to check sugars continuously. E 11.9 change every 10 days 3 Each 4 Suspended Additional Information hydrOXYzine HCl 25 MG Oral Tablet TAKE 1 TABLET BY MOUTH EVERY 6 HOURS NEEDED FOR ANXIETY 4 Suspended Dexcom G7 Pre Billing Clinician Device USE DAILY TO CHECK BLOOD SUGARS [...] Tablet by mouth in the morning. Suspended Rosuvastatin Calcium 20 MG Oral Tablet (Crestor) Take 1 Tablet by mouth every evening. Suspended Polyethylene Glycol 3350 17 GM Oral Packet (MiraLax) Take 1 Packet by mouth in the morning and 1 Packet before bedtime. Suspended Aspirin 81 MG Oral Tablet Chewable Take 1 Tablet by mouth in the morning. Suspended Metoprolol Succinate ER 25 MG Oral Tablet Extended Release 24 Hour (toPROL XL) Take 1 Tablet by mouth in the morning and 1 Tablet before bedtime. Suspended documented as of this [...] and PP sugars <120. Report levels to [facility] department weekly. 10. Advised patient that Glyburide, Metformin, and insulin may be safely used during for the control of blood sugar levels. Alexandra will begin her insulin therapy today. 11. Dietary consult to be done to instruct patient on appropriate nutrition and diet to aid in control of blood sugars. 12. Recommend urine culture each trimester. 13. Recommend [facility] ultrasound for limited anatomy at 12-14 weeks, for full anatomy at 18-20 weeks, and for echocardiography at 22-24 weeks. 14. Start testing with twice weekly NST and weekly MATTHEW beginning at 32 weeks or earlier if any evidence of uncontrolled blood sugars, renal abnormalities, or HTN. 15. Recommend [facility] growth ultrasound every 4 weeks after [...] 01/29/20 17 Overview: 03/19/2011 Needs enrolled in [facility] once MA active. Marva RN- [...] No 08/30/2023 documented as of this encounter Procedure Notes * Augie Tran DO - 05/20/2024 7:19 PM EDTAssociated Order(s): EKG REPORT REASON FOR STUDY: CONCLUSIONS: Normal sinus rhythm Moderate voltage criteria for LVH, may be normal variant ( R in aVL , Sagar product ) Cannot rule out Anterior infarct (cited on or before 01-Nov-2020) Prolonged QT interval or tu fusion, consider myocardial disease, electrolyte imbalance, or drug effects When compared with ECG of 30-Aug-2023 04:43, No significant change was found Ventricular Rate: 75 Atrial Rate: 75 VA Interval: 162 QRS Duration: 108 QT/QTc: 458/511 ms P-R-T [place]: 48 : -19 : 7 degrees documented in this encounter Plan of Treatment Upcoming Encounters Date Type Department Care Team (Latest Contact Info) Description 06/09/2024 7:00 AM EDT Hospital Encounter CRS Waiting [facility], Cardiac Recovery Suite Waiting Unit, H [address] [place] [phone] Diamond Mcgowan MD [facility] [place] [address] 06/09/2024 7:00 AM EDT - 06/09/2024 8:00 AM EDT Surgery CRS Waiting [facility], Cardiac Recovery Suite Waiting Unit, [address] [place] [address] Diamond Mcgowan MD [facility] [address] [place], [place] [id number] PTCA, CARDIAC ANGIOPLASTY, PERCUTANEOUS, 1 ARTERY 06/09/2024 7:00 AM EDT Office Visit [facility] [place] [address], [place] [id number] [place], Cardiac Recovery [place] [address] [facility] [place], [place] [id number] 07/07/2024 12:30 PM EST Office Visit Orthopaedics [facility] [address] [facility] [place] [address] Ary Rowe MD [address] [place] [address] 09/01/2024 1:40 PM EST Office Visit [facility] [address] [place] [phone] Adolph Aldridge MD [address] [place], [place] [phone] 04/01/2025 2:40 PM EDT Telemedicine Neurology [address] [place] [address] Eros Marks, [address] [facility] [place] [address] Scheduled Procedures Name Priority Associated Diagnoses Date/Ti me COLONOSCOPY FLEXIBLE PROXIMAL DIAGNOSTIC BRBPR (bright red blood per rectum) 05/22/2024 1:00 PM EDT PTCA, CARDIAC ANGIOPLASTY, PERCUTANEOUS, 1 [...] (Patient Declined After Education) HbA1c 11/19/2024 05/22/2024, 0 12/2023, 05/28/2023, Additional [...] this encounter Medical Devices Implanted Type Area Commodity Manager Device Identifier Shelf Expiration Date Model / Serial / Lot Stent Protege Gps [id number] - [id number] Implanted:Qty : 1 on 09/29/2020 by Carmelo Ramos MD at OR [facility] Left: Chest [employer] : VASCULAR [id number] 09/20/2022 [id number] / / [id number] Stent Viab [id number] - [id number] Implanted:Qty : 1 on 04/16/2023 by Carmelo Ramos MD at OR [facility] Right: Subclavian [employer] [id number] 01/26/2026 [id number] / [id number] / [id number] documented as of this encounter Procedures Procedure Name Priority Date/Time Associated Diagnosis Comments EKG REPORT 05/20/2024 7:19 PM EDT documented in this encounter Results * EKG REPORT (05/20/2024 7:19 PM EDT) 05/20/2024 7:19 PM EDT Narrative Procedure Note Augie Tran DO - 05/20/2024 7:19 PM EDT REASON FOR STUDY: CONCLUSIONS: Normal sinus rhythm Moderate voltage criteria for LVH, may be normal variant ( R in aVL ,Sagar product ) Cannot rule out Anterior infarct (cited on or before 01-Nov-2020) Prolonged QT interval or tu fusion, consider myocardial disease,electrolyte imbalance, or drug effects When compared with ECG of 30-Aug-2023 04:43, No significant change was found Ventricular Rate: 75 Atrial Rate: 75 VA Interval: 162 QRS Duration: 108 QT/QTc: 458/511 ms P-R-T [place]: 48 : -19 : 7 degrees Samantha Cevallos DO EKG documented in this encounter Advance Directives * [...] Advance Directives occurred with: Patient Care Teams Mud Logger Relationship Specialty Start Date End Date Adolph Aldridge MD [address] [place] [address] PCP - General Family Medicine 10/21/18 documented as of this encounter
--- OUTSIDE RECORDS SUMMARY | 2024-06-29 05:22 | External Medical Summary | Summary of Care ---
Author Name Unknown Organization [facility] Address [address] [place] [address] Phone [phone] Care Team Providers Care Mosaic Worker Name Role Phone Adolph Aldridge MD Primary Care Provider [phone] Encounter Details Date Type Department Care Team (Latest Contact Info) Description 05/05/2024 7:45 PM EDT - 05/05/2024 11:59 PM EDT Hospital Encounter Radiology Film [place] [address] [place] [address] Discharge Disposition: Home - Self [...] 2 Suspended Additional Information OneTouch Delica Plus [id number] ns:DM type 2 with diabetic peripheral neuropathy [...] goal of less than 7.0% ([facility]) Use to check sugars continuously. E 11.9 change every 10 days 3 Each 11 4 Suspended Additional Information hydrOXYzine HCl 25 MG Oral Tablet TAKE 1 TABLET BY MOUTH EVERY 6 HOURS NEEDED FOR ANXIETY 4 Suspended Dexcom G7 Information Security Officer Device USE DAILY TO CHECK BLOOD SUGARS [...] and PP sugars <120. Report levels to [facility] department weekly. 10. Advised patient that Glyburide, Metformin, and insulin may be safely used during for the control of blood sugar levels. Alexandra will begin her insulin therapy today. 11. Dietary consult to be done to instruct patient on appropriate nutrition and diet to aid in control of blood sugars. 12. Recommend urine culture each trimester. 13. Recommend [facility] ultrasound for limited anatomy at 12-14 [...] if early screen is normal. 5. Recommend [facility] ultrasound for anatomy screen at 20 [...] Suite Waiting Unit, [facility] [address] [facility] [phone] Diamond Mcgowan MD [address] [place] [address] 06/09/2024 7:00 AM EDT - 06/09/2024 8:00 AM EDT Surgery CRS Waiting [facility], Cardiac Recovery Suite Waiting Unit, [address] [place] [address] Diamond Mcgowan MD [address] [place] [address] PTCA, CARDIAC ANGIOPLASTY, PERCUTANEOUS, 1 ARTERY 06/09/2024 7:00 AM EDT Office Visit Cardiology [facility] [place] [address] [place] [address] [facility] Cardiac Recovery [facility] [address] [place], [place] [id number] 07/07/2024 12:30 PM EST Office Visit Orthopaedics [facility] [address] [place] [address] Ary Rowe MD [address] [facility] [place] [address] 09/01/2024 1:40 PM EST Office Visit [facility] [address] [place] [phone] Adolph Aldridge MD [address] [place] [address] 04/01/2025 2:40 PM EDT Telemedicine Neurology [address] [place] [address] Eros Marks DO [address] [facility] [place] [address] Scheduled Procedures Name Priority Associated Diagnoses [...] this encounter Medical Devices Implanted Type Area Assisted Living Assistant Device Identifier Shelf Expiration Date Model / Serial / Lot Stent Protege Gps [id number] - [id number] Implanted:Qty : 1 on 09/29/2020 by Carmelo Ramos MD at OR [facility] Left: Chest [employer] : VASCULAR [id number] 09/20/2022 [id number] -40-80 / / [id number] Stent Viab [id number] - [id number] Implanted:Qty : 1 on 04/16/2023 by Carmelo Ramos MD at OR [facility] Right: Subclavian [employer] [id number] 01/26/2026 [id number] / [id number] / [id number] documented as of this encounter Procedures Procedure Name Priority Date/Time Associated Diagnosis Comments RADIOLOGY EXAM - CT (IMAGES ONLY, NO REPORT) Routine 05/05/2024 7:45 PM EDT documented in this encounter Results * RADIOLOGY EXAM - CT (IMAGES ONLY, NO REPORT) (05/05/2024 7:45 PM EDT) 05/05/2024 7:36 PM EDT Narrative Scheduling, Silent - 05/21/2024 11:31 AM EDT This is an imaging study not interpreted or resulted by a [facility] radiologist. Samantha Ocampoele Ban DO RAD [...] Advance Directives occurred with: Patient Care Teams Mosaic Worker Relationship Specialty Start Date End Date Adolph Aldridge MD [address] [place] [address] PCP - General Family Medicine 10/21/18 documented as of this encounter
--- OUTSIDE RECORDS SUMMARY | 2024-06-29 05:22 | External Medical Summary ---
Author Name Unknown Address Unknown Organization K01:LABORATORY [facility] - [facility] [place] [address] Laboratory Report Ordering Provider Test Date Status LOBO SUBRAMANIAN 05/21/2024 20:11:00 Final Observation Date Value Abnormality Reference (Units ) Status WBC, Total 05/21/2024 20:11:00 3.64 Below low normal 4.00-10.80 (K/uL) Final RBC 05/21/2024 20:11:00 2.82 3.85-5.15 (M/uL) Final Hemoglobin 05/21/2024 20:11:00 9.2 Below low normal 12.0-15.3 (g/dL) Final HCT 05/21/2024 20:11:00 30.4 Below low normal 36.0-45.2 (%) Final MCV 05/21/2024 20:11:00 107.8 81.5-97.5 (fL) Final MCH 05/21/2024 20:11:00 32.6 27.0-34.0 (pg) Final MCHC 05/21/2024 20:11:00 30.3 32.0-36.0 (g/dL) Final RDW 05/21/2024 20:11:00 22.5 11.5-15.5 (%) Final Platelets 05/21/2024 20:11:00 119 Below low normal 140-400 (K/uL) Final MPV 05/21/2024 20:11:00 9.7 6.6-11.1 (fL) Final Nucleated erythrocytes/100 leukocytes [Ratio] in Blood by Automated count 05/21/2024 20:11:00 0 <=0 (/100 WBCs) Final Performing Location LABORATORY [facility] - [address] [facility] [address]
--- OUTSIDE RECORDS SUMMARY | 2024-06-29 05:22 | External Medical Summary ---
Author Name Unknown Address Unknown Organization K01:LAB[facility]ATORY [facility] [place] [address] [place] [address] Laboratory Report Ordering Provider Test Date Status ELIGH SUBRAMANIANONT 05/21/2024 20:11:00 Final Observation Date Value Abnormality Reference (Units ) Status Troponin T 05/21/2024 20:11:00 162 Above upper panic limits <=14 (ng/L) Final Result may be falsely decrea sed due to hemolysis. Performing Location LAB[facility]ATORY [facility] [place] [address] [place] [address]
--- OUTSIDE RECORDS SUMMARY | 2024-06-29 05:22 | External Medical Summary ---
Author Name Unknown Address Unknown Organization K01:[place] [place] [address] [facility] [address] Laboratory Report Ordering Provider Test Date Status LOBO SUBRAMANIAN 05/22/2024 07:43:00 Final Observation Date Value Abnormality Reference (Units ) Status HbA1C 05/22/2024 07:43:00 5.0 4.0-5.6 (% ) Final The use of HbA1c to monitor glycemic status is based on normal hemoglobin and HbA composition. This test should not be used in patients with abnormal hemoglobin that affects the half life of the red blood cell or the in vivo glycation rates. Glucose, estimated average 05/22/2024 07:43:00 97 <126 (mg/dL) Final Performing Location [facility] [facility] [place] [address] [facility] [address]
--- OUTSIDE RECORDS SUMMARY | 2024-06-29 05:22 | External Medical Summary | Summary of Care ---
Author Name Unknown Organization [facility] Address [address] [place] [address] Phone [phone] Care Team Providers Care Clinical Coder Name Role Phone Adolph Aldridge MD Primary Care Provider [phone] Encounter Details Date Type Department Care Team (Latest Contact Info) Description 05/18/2024 9:45 PM EDT - 05/18/2024 11:59 PM EDT Hospital Encounter Radiology Film File [address] [place] [address] Discharge Disposition: Home - Self [...] 2 Suspended Additional Information OneTouch Delica Plus [id number] ns:DM type 2 with diabetic peripheral neuropathy [...] than 7.0% ([facility]) Use to check sugars continuously. E 11.9 change every 10 days 3 Each 4 Suspended Additional Information hydrOXYzine HCl 25 MG Oral Tablet TAKE 1 TABLET BY MOUTH EVERY 6 HOURS NEEDED FOR ANXIETY 4 Suspended Dexcom G7 Animal Control Officer Device USE DAILY TO CHECK BLOOD [...] Date Food insecurity 02/04/2023 08/08/2023 Overview: Per [facility] Protocol Major depressive disorder with single [...] and PP sugars <120. Report levels to [facility] department weekly. 10. Advised patient that Glyburide, Metformin, and insulin may be safely used during for the control of blood sugar levels. Alexandra will begin her insulin therapy today. 11. Dietary consult to be done to instruct patient on appropriate nutrition and diet to aid in control of blood sugars. 12. Recommend urine culture each trimester. 13. Recommend [facility] ultrasound for limited anatomy at 12-14 [...] today to schedule follow-up visit with Dr oJ regarding her renal disease. V23.89 SUPERVISION OF [...] Overview: 03/19/2011 Needs enrolled in [facility] once MA active. Marva RN- Enrolled [...] 7:00 AM EDT Hospital Encounter [place] [facility] Card[place] Suite Waiting Unit, [address] [place] [address] Diamond Mcgowan MD [address] [place] [address] 06/09/2024 7:00 AM EDT - 06/09/2024 8:00 AM EDT Surgery CRS [place]ing [facility] Cardiac Recovery Suite Waiting Unit, [address] [place] [facility] [place] [address] Diamond Mcgowan MD [address], [place] [phone] PTCA, CARDIAC ANGIOPLASTY, PERCUTANEOUS, 1 ARTERY 06/09/2024 7:00 AM EDT Office Visit Cardiology [facility] [address] [place] [address] [facility] Cardiac Recovery [facility] [address] [place] [address] 07/07/2024 12:30 PM EST Office Visit [facility]opa[facility] [address] [facility] [place] [address] Ary Rowe MD [address] [facility] [address] 09/01/2024 1:40 PM EST Office Visit [facility] [address] [place] [address] Adolph Aldridge MD [address] [place] [address] 04/01/2025 2:40 PM EDT Telemedicine Neurology [address] [place] [address] Eros Marks DO [address] [place] [address] Scheduled Procedures Name Priority Associated [...] this encounter Medical Devices Implanted Type Area Aerial Photograph Interpreter Device Identifier Shelf Expiration Date Model / Serial / Lot Stent Protege Gps [id number] - [id number] Implanted:Qty : 1 on 09/29/2020 by Carmelo Ramos MD [place] [facility] Left: Chest [employer] : VASCULAR [id number] 09/20/2022 [id number] -40-80 / / [id number] Stent Viab [id number] - [id number] Implanted:Qty : 1 on 04/16/2023 by Carmelo Ramos MD at [place] [facility] Right: Subclavian [employer] [id number] 01/26/2026 [id number] / [id number] / [id number] documented as of this encounter Procedures Procedure Name Priority Date/Time Associated Diagnosis Comments RADIOLOGY EXAM - GENERAL RAD (IMAGES ONLY,NO REPORT) Routine 05/18/2024 9:45 PM EDT documented in this encounter Results * RADIOLOGY EXAM - GENERAL RAD (IMAGES ONLY,NO REPORT) (05/18/2024 9:45 PM EDT) 05/18/2024 9:42 PM EDT Narrative Scheduling, Silent - 05/21/2024 12:13 PM EDT This is an imaging study not interpreted or resulted by a [facility] or [facility] contracted radiologist. Samantha Cevallos DO RADIOLOGY (RAD [...] Advance Directives occurred with: Patient Care Teams Clinical Coder Relationship Specialty Start Date End Date Adolph Aldridge MD [address] [place] [address] PCP - General Family Medicine 10/21/18 documented as of this encounter
--- OUTSIDE RECORDS SUMMARY | 2024-06-29 05:22 | External Medical Summary | Summary of Care ---
Author Name Unknown Organization [facility] Address [address] [place] [address] Phone [phone] Care Team Providers Care Core Sucker Name Role Phone Adolph Aldridge MD Primary Care Provider [phone] Encounter Details Date Type Department Care Team (Late st Contact Info) Description 05/05/2024 Orders Only Unspecified Department Samantha Cevallos, DO [address] [facility] [place] [address] Allergies Active Allergy Reactions Criticality Noted Date Comments Amoxicillin Low 01/27/2021 Other reaction(s): VOMITING Cefaclor Rash Low 11/23/2011 Cephalosporins Rash Low 05/16/1999 documented as of this encounter (statuses as of 05/21/2024) Medications Medication Sig Dispensed Refills Start Date [...] 2 Suspended Additional Information OneTouch Delica Plus [id number] ns:DM type 2 with diabetic peripheral neuropathy [...] NEEDED FOR ANXIETY 4 Suspended Dexcom G7 Literary Writer Device USE DAILY TO CHECK BLOOD SUGARS [...] as of this encounter (statuses as of 05/21/2024) Active Problems Problem Noted Date Diagnosed Date Acute blood loss anemia 05/21/2024 Bleeding hemorrhoids [...] as of this encounter (statuses as of 05/21/2024) Resolved Problems Problem Noted Date Diagnosed Date Resolved Date Food insecurity 02/04/2023 08/08/2023 Overview: Per [facility] Protocol Major depressive disorder with [...] and PP sugars <120. Report levels to [facility] department weekly. 10. Advised patient that Glyburide, Metformin, and insulin may be safely used during for the control of blood sugar levels. Alexandra will begin her insulin therapy today. 11. Dietary consult to be done to instruct patient on appropriate nutrition and diet to aid in control of blood sugars. 12. Recommend urine culture each trimester. 13. Recommend [facility] ultrasound for limited anatomy at [...] if early screen is normal. 5. Recommend [facility] ultrasound for anatomy screen at [...] 03/19/2011 Needs enrolled in [facility] once MA active. Marva RN- Enrolled 03/27/2011 Marva RN Patient declines due to illness flu vaccine. 06/07/2011 Tami Rodriguez, RN Growth scan at 27w: 1275g, which [...] as of this encounter (statuses as of 05/21/2024) Immunizations Name Administration Dates Next Due COVID-19 [...] Recovery Suite Waiting Unit, [address] [place] [address] Diamond Mcgowan MD [address] [place] [address] 06/09/2024 7:00 AM EDT - 06/09/2024 8:00 AM EDT Surgery CRS Waiting [facility], Cardiac Recovery Suite Waiting Unit, [address] [place] [address] Diamond Mcgowan MD [address] [place] [address] PTCA, CARDIAC ANGIOPLASTY, PERCUTANEOUS, 1 ARTERY 06/09/2024 7:00 AM EDT Office Visit Cardiology [facility] [place] [address] [place] [address] [facility] Cardiac Recovery [facility] [address] [place] [address] 07/07/2024 12:30 PM EST Office Visit Orthopaedics [facility] [address] [address] Ary Rowe MD [address] [place] [address] 09/01/2024 1:40 PM EST Office Visit [facility] [address] [place] [phone] Adolph Aldridge MD [address] [place] [address] 04/01/2025 2:40 PM EDT Telemedicine Neurology [address] [place] [address] Eros Marks DO [address] [facility], [place] [address] Scheduled Procedures Name Priority Associated Diagnoses Date/Ti [...] this encounter Medical Devices Implanted Type Area Rn Maternal Child Device Identifier Shelf Expiration Date Model / Serial / Lot Stent Protege Gps [id number] - [id number] Implanted:Qty : 1 on 09/29/2020 by Carmelo Ramos MD at OR [facility] Left: Chest [employer] : VASCULAR [id number] 09/20/2022 [id number] -40-80 / / [id number] Stent Viab [id number] - [id number] Implanted:Qty : 1 on 04/16/2023 by Carmelo Ramos MD at OR [facility] Right: Subclavian [employer] [id number] 01/26/2026 [id number] / [id number] / [id number] documented as of this encounter Procedures Procedure [...] study not interpreted or resulted by a [facility] or [facility] radiologist. Samantha Cevallos DO RADIOLOGY (RAD [...] Advance Directives occurred with: Patient Care Teams Core Sucker Relationship Specialty Start Date End Date Adolph Aldridge MD [address] [place] [address] PCP - General Family Medicine 10/21/18 documented as of this encounter
--- OUTSIDE RECORDS SUMMARY | 2024-06-29 05:22 | External Medical Summary ---
Author Name Unknown Address Unknown Organization K01:LABORATORY [facility] - [facility] [address] Laboratory Report Ordering Provider Test Date Status LOBO SUBRAMANIAN 05/22/2024 07:43:00 Final Observation Date Value Abnormality Reference (Units ) Status WBC, Total 05/22/2024 07:43:00 4.00 4.00-10.80 (K/uL) Final RBC 05/22/2024 07:43:00 2.75 3.85-5.15 (M/uL) Final Hemoglobin 05/22/2024 07:43:00 9.1 Below low normal 12.0-15.3 (g/dL) Final HCT 05/22/2024 07:43:00 29.3 Below low normal 36.0-45.2 (%) Final MCV 05/22/2024 07:43:00 106.5 81.5-97.5 (fL) Final MCH 05/22/2024 07:43:00 33.1 27.0-34.0 (pg) Final MCHC 05/22/2024 07:43:00 31.1 32.0-36.0 (g/dL) Final RDW 05/22/2024 07:43:00 22.2 11.5-15.5 (%) Final Platelets 05/22/2024 07:43:00 113 Below low normal 140-400 (K/uL) Final MPV 05/22/2024 07:43:00 9.8 6.6-11.1 (fL) Final Nucleated erythrocytes/100 leukocytes [Ratio] in Blood by Automated count 05/22/2024 07:43:00 0 <=0 (/100 WBCs) Final Performing Location LABORATORY [facility] - [address] [place] [address]
--- OUTSIDE RECORDS SUMMARY | 2024-06-29 05:22 | External Medical Summary | Summary of Care ---
Author Name Unknown Organization [facility] Address [address] [place] [address] Phone [phone] Care Team Providers Care Assistant Food Service Manager Name Role Phone Adolph Aldridge MD Primary Care Provider [phone] Reason for Visit * Auth/Cert Specialty Diagnoses / Procedures Referred By Adarsh t Referred To Contact Diagnoses CAD, anemia, hemorrhoids Samantha Cevallos, DO [address] [facility] [place] [address] Admissions [facility] [address] [place] [address] Referral ID Status Reason Start Date Expiration Date Visits Re quested Visits Authorized [id number] Encounter Details Date Type Department Care Team (Latest Contact Info) Description 05/21/2024 8:40 AM EDT - 05/21/2024 11:59 PM EDT Hospital Encounter Cardiac Studies [facility] [address] [place] [address] Discharge Disposition: Home - Self [...] 2 Suspended Additional Information OneTouch Delica Plus [id number] ns:DM type 2 with diabetic peripheral neuropathy [...] than 7.0% ([facility]) Use to check sugars continuously. E 11.9 change every 10 days 3 Each 11 4 Suspended Additional Information hydrOXYzine HCl 25 MG Oral Tablet TAKE 1 TABLET BY MOUTH EVERY 6 HOURS NEEDED FOR ANXIETY 4 Suspended Dexcom G7 Religious Ritual Slaughterer Device USE DAILY TO CHECK BLOOD SUGARS [...] primary OB provider if these symptoms occur. 304.23 PREV C-SECT NOS-ANTEPART 1. Reviewed that patients [...] RN, contaminated patient to repepat OB [facility] 03/19/2011 01/29/20 17 Overview: 03/19/2011 Needs enrolled in [facility] once MA active. Marva RN- Enrolled 03/27/2011 [...] 7:00 AM EDT Hospital Encounter CRS Waiting [facility], Cardiac Recovery Suite Waiting Unit, [address] [place] [address] Diamond Mcgowan MD [address] [place] [address] 06/09/2024 7:00 AM EDT - 06/09/2024 8:00 AM EDT Surgery CRS Waiting [facility], Cardiac Recovery Suite Waiting Unit, [address] [place] [address] Diamond Mcgowan MD [address] [place] [address] PTCA, CARDIAC ANGIOPLASTY, PERCUTANEOUS, 1 ARTERY 06/09/2024 7:00 AM EDT Office Visit Cardiology [facility] [place] [address] [place] [facility] [address] [place], Cardiac Recovery [facility] [address] [place] [address] 07/07/2024 12:30 PM EST Office Visit Orthopaedics [address] [place] [address] Ary Rowe MD [address] [place] [address] 09/01/2024 1:40 PM EST Office Visit [facility] [address] [place] [address] Adolph Aldridge MD [address] [place] [address] 04/01/2025 2:40 PM EDT Telemedicine Neurology [address] [place] [address] Eros Marks, DO [address] [facility] [place] [address] Scheduled Procedures Name Priority Associated Diagnoses [...] this encounter Medical Devices Implanted Type Area Manager Outpatient Device Identifier Shelf Expiration Date Model / Serial / Lot Stent Protege Gps [id number] - [id number] Implanted:Qty : 1 on 09/29/2020 by Carmelo Ramos MD at OR [facility] Left: Chest [employer] : VASCULAR [id number] 09/20/2022 [id number] -40-80 / / [id number] Stent Viab [id number] - [id number] Implanted:Qty : 1 on 04/16/2023 by Carmelo Ramos MD at OR [facility] Right: Subclavian [employer] [id number] 01/26/2026 [id number] / [id number] / [id number] documented as of this encounter Procedures Procedure Name Priority Date/Time Associated Diagnosis Comments ECHO, COMPLETE (2D), TRANS-THORACIC Routine 05/21/2024 10:41 AM EDT Chest pain, unspecified type documented in this encounter Visit Diagnoses Diagnosis HTN, goal below 140/90- Primary Unspecified essential hypertension 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) Acute venous embolism and thrombosis of other thoracic veins Cardiomegaly HFrEF (heart failure with reduced ejection fraction) (HCC) Chronic total occlusion of coronary artery Coronary atherosclerosis of unspecified type of vessel, [place] or graft documented in this encounter Administered Medications Inactive Administered Medications - up to 3 most recent administrations Medication Order MAR Action Action Date Dose Rate Site perflutren lipid microsphere inj SUSP 1.956 mg 1.956 mg, Intravenous, ONCE PRN Other, For Echo Only - Suboptimal Echo Images, Starting on Elke 05/21/24 at 1006, Until Elke 05/21/24 at 1205, For 2 hours, Administer IVP over 45 seconds, Cardiac Studies_HODHOV Given 05/21/2024 10:07 AM EDT 1.956 mg documented in this encounter Advance Directives * [...] Advance Directives occurred with: Patient Care Teams Assistant Food Service Manager Relationship Specialty Start Date End Date Adolph Aldridge MD [address] [place] [address] PCP - General Family Medicine 10/21/18 documented as of this encounter
--- OUTSIDE RECORDS SUMMARY | 2024-06-29 05:22 | External Medical Summary ---
Author Name Unknown Address Unknown Organization K01:LABORATORY [facility] - [address] [place] [address] Laboratory Report Ordering Provider Test Date Status LOBO SUBRAMANIAN 05/21/2024 20:11:00 Final Results rechecked.
Observation Date Value Abnormality Reference (Units ) Status Potassium, Whole Blood 05/21/2024 20:11:00 3.9 3.5-5.1 (mmol/L) Final Performing Location LABORATORY [facility] - [address] [place] [address]
--- OUTSIDE RECORDS SUMMARY | 2024-06-29 05:22 | External Medical Summary | Summary of Care ---
Author Name Unknown Organization [facility] Address [address] [place] [address] Phone [phone] Care Team Providers Care Pump Oiler Name Role Phone Adolph Aldridge MD Primary Care Provider [phone] Encounter Details Date Type Department Care Team (Latest Contact Info) Description 05/20/2024 4:20 AM EDT - 05/20/2024 7:02 PM EDT Hospital Encounter Radiology Film [facility] [address] [place] [address] Arrived Discharge Disposition: Home - [...] 39 g 3 2 Suspended Additional Information Ondansetron HCl 4 MG Oral TabletIndications: Nausea without vomiting Take by mouth 1 Tablet every 6 hours as needed for Nausea. 24 Tablet 2 Suspended Additional Information OneTouch Delica Plus [id number] ns:DM type 2 with diabetic peripheral neuropathy [...] goal of less than 7.0% ([facility]) Use to check sugars continuously. E 11.9 change every 10 days 3 Each 11 4 Suspended Additional Information hydrOXYzine HCl 25 MG Oral Tablet TAKE 1 TABLET BY MOUTH EVERY 6 HOURS NEEDED FOR ANXIETY 4 Suspended Dexcom G7 Hi Low Truck Driver Device USE DAILY TO CHECK BLOOD SUGARS [...] than 7.0% 06/23/2009 Overview: Per [facility] [employer]. 7/25/11 Will resume checking sugars. Hgb A1C 6.5 [...] Date Food insecurity 02/04/2023 08/08/2023 Overview: Per [facility] Protocol Major depressive disorder with [...] and PP sugars <120. Report levels to [facility] department weekly. 10. Advised patient that Glyburide, Metformin, and insulin may be safely used during for the control of blood sugar levels. Alexandra will begin her insulin therapy today. 11. Dietary consult to be done to instruct patient on appropriate nutrition and diet to aid in control of blood sugars. 12. Recommend urine culture each trimester. 13. Recommend [facility] ultrasound for limited anatomy at [...] if early screen is normal. 5. Recommend [facility] ultrasound for anatomy screen at 20 [...] 7:00 AM EDT Hospital Encounter CRS Waiting [facility], Cardiac Recovery Suite Waiting Unit, [address] [place] [address] Diamond Mcgowan MD [address] [place], [place] [address] 06/09/2024 7:00 AM EDT - 06/09/2024 8:00 AM EDT Surgery CRS Waiting [facility], Cardiac Recovery Suite Waiting Unit, [address] [place] [address] Diamond Mcgowan MD [address] [place], [place] [address] PTCA, CARDIAC ANGIOPLASTY, PERCUTANEOUS, 1 ARTERY 06/09/2024 7:00 AM EDT Office Visit Cardiology [facility] [place] [address] [place] [address] [facility] Cardiac [facility] [address] [place] [address] 07/07/2024 12:30 PM EST Office Visit Orthopaedics [facility] [address] [facility] [place] [address] Ary Rowe MD [address] [place] [address] 09/01/2024 1:40 PM EST Office Visit [facility] [address] [place] [address] Adolph Aldridge MD [address] [place] [address] 04/01/2025 2:40 PM EDT Telemedicine Neurology [address] [place] [address] Eros Marks, DO [address] [place] [address] Scheduled Procedures Name Priority Associated Diagnoses Date/Ti [...] this encounter Medical Devices Implanted Type Area Concrete Boom Operator Device Identifier Shelf Expiration Date Model / Serial / Lot Stent Protege Gps [id number] - [id number] Implanted:Qty : 1 on 09/29/2020 by Carmelo Ramos MD at [place] [facility] Left: Chest [employer] : VASCULAR [id number] 09/20/2022 [id number] -40-80 / / [id number] Stent Viab [id number] - [id number] Implanted:Qty : 1 on 04/16/2023 by Carmelo Ramos MD at OR [facility] Right: Subclavian [employer] [id number] 01/26/2026 [id number] / [id number] / [id number] documented as of this encounter Procedures Procedure Name Priority Date/Time Associated Diagnosis Comments RADIOLOGY EXAM - GENERAL RAD (IMAGES ONLY,NO REPORT) Routine 05/20/2024 4:20 AM EDT documented in this encounter Results * RADIOLOGY EXAM - GENERAL RAD (IMAGES ONLY,NO REPORT) (05/20/2024 4:20 AM EDT) 05/20/2024 4:18 AM EDT Narrative Scheduling, Silent - 05/21/2024 11:29 AM EDT This is an imaging study not interpreted or resulted by a [facility] or [facility] contracted radiologist. Samantha Cevallos DO RADIOLOGY (RAD [...] Advance Directives occurred with: Patient Care Teams Pump Oiler Relationship Specialty Start Date End Date Adolph Aldridge MD [address] [facility] [place] [address] PCP - General Family Medicine 10/21/18 documented as of this encounter
--- OUTSIDE RECORDS SUMMARY | 2024-06-29 05:22 | External Medical Summary | Summary of Care ---
Author Name Unknown Organization [facility] Address [address] [place] [address] Phone [phone] Care Team Providers Care Sales Service Professional Name Role Phone Adolph Aldridge MD Primary Care Provider [phone] Encounter Details Date Type Department Care Team (Late st Contact Info) Description 05/18/2024 Orders Only Unspecified Department Samantha Cevallos, DO [address] [facility] [place] [address] Allergies Active Allergy Reactions Criticality [...] 2 Suspended Additional Information OneTouch Delica Plus [id number] ns:DM type 2 with diabetic peripheral neuropathy [...] A1c goal of less than 7.0% ([facility]) Use to check sugars continuously. E 11.9 change every 10 days 3 Each 4 Suspended Additional Information hydrOXYzine HCl 25 MG Oral Tablet TAKE 1 TABLET BY MOUTH EVERY 6 HOURS NEEDED FOR ANXIETY 4 Suspended Dexcom G7 Glass Processing Worker Device USE DAILY TO CHECK BLOOD SUGARS [...] Date Food insecurity 02/04/2023 08/08/2023 Overview: Per [facility] Protocol Major depressive disorder with [...] if early screen is normal. 5. Recommend [facility] ultrasound for anatomy screen at 20 [...] Recovery Suite Waiting Unit, H [address] [place] [address] Diamond Mcgowan MD [address] [place] [address] 06/09/2024 7:00 AM EDT - 06/09/2024 8:00 AM EDT Surgery CRS Waiting [facility], Cardiac Recovery Suite Waiting Unit, [address] [place] [address] Diamond Mcgowan MD [address] [place] [address] PTCA, CARDIAC ANGIOPLASTY, PERCUTANEOUS, 1 ARTERY 06/09/2024 7:00 AM EDT Office Visit Cardiology [facility] [place] [address] [place] [address] [place], Cardiac Recovery [facility] [address] [place], [place] [address] 07/07/2024 12:30 PM EST Office Visit [facility] [address] [place] [address] Ary Rowe MD [address] [place] [address] 09/01/2024 1:40 PM EST Office Visit [facility] [address] [place] [address] Adolph Aldridge MD [address] [place] [address] 04/01/2025 2:40 PM EDT Telemedicine Neurology [address] [place] [address] Eros Marks DO [address] [place], [place] [address] Scheduled Procedures Name Priority Associated Diagnoses Date/Ti [...] this encounter Medical Devices Implanted Type Area Aircraft Charter Dispatcher Device Identifier Shelf Expiration Date Model / Serial / Lot Stent Protege Gps [id number] - [id number] Implanted:Qty : 1 on 09/29/2020 by Carmelo Ramos MD at OR [facility] Left: Chest [employer] : VASCULAR [id number] 09/20/2022 [id number] -40-80 / / [id number] Stent Viab [id number] - [id number] Implanted:Qty : 1 on 04/16/2023 by Carmelo Ramos MD at OR [facility] Right: Subclavian [employer] [id number] 01/26/2026 [id number] / [id number] / [id number] documented as of this encounter Procedures Procedure [...] study not interpreted or resulted by a [facility] or [facility] contracted radiologist. Samantha Cevallos DO RADIOLOGY (RAD [...] Advance Directives occurred with: Patient Care Teams Sales Service Professional Relationship Specialty Start Date End Date Adolph Aldridge MD [address] [place] [address] PCP - General Family Medicine 10/21/18 documented as of this encounter
--- OUTSIDE RECORDS SUMMARY | 2024-06-29 05:23 | External Medical Summary ---
Author Name Unknown Address Unknown Organization K01:LABORATORY [facility] - [address] [place] [address] Laboratory Report Ordering Provider Test Date Status LOBO SUBRAMANIAN 05/21/2024 14:01:30 Final Observation Date Value Abnormality Reference (Units ) Status Vitamin B12 05/21/2024 14:01:30 [phone] (pg/mL) Final Performing Location LABORATORY [facility] - [address] [place] [address]
--- OUTSIDE RECORDS SUMMARY | 2024-06-29 05:23 | External Medical Summary ---
Author Name Unknown Address Unknown Organization K01:LABORATORY [facility] - [address] [place] [address] Laboratory Report Ordering Provider Test Date Status LOBO SUBRAMANIAN 05/21/2024 10:25:00 Final Q2H until potassium less dee n 5.5mEq/L Observation Date Value Abnormality Reference (Units ) Status Potassium, Whole Blood 05/21/2024 10:25:00 6.0 Above high normal 3.5-5.1 (mmol/L) Final Performing Location LABORATORY [facility] - [address] [place] [address]
--- OUTSIDE RECORDS SUMMARY | 2024-06-29 05:23 | External Medical Summary | Summary of Care ---
Author Name Unknown Organization [facility] Address [address] [place] [address] Phone [phone] Care Team Providers Care Jet Ski Mechanic Name Role Phone Adolph Aldridge MD Primary Care Provider [phone] Encounter Details Date Type Department Care Team (Late st Contact Info) Description 05/05/2024 Orders Only Unspecified Department Samantha Cevallos, DO [address] [facility] [place] [address] Allergies Active Allergy Reactions Criticality [...] 2 Suspended Additional Information OneTouch Delica Plus [id number] ns:DM type 2 with diabetic peripheral neuropathy [...] hemoglobin A1c goal of less than 7.0% ([facility]) Use to check sugars continuously. E 11.9 change every 10 days 3 Each 4 Suspended Additional Information hydrOXYzine HCl 25 MG Oral Tablet TAKE 1 TABLET BY MOUTH EVERY 6 HOURS NEEDED FOR ANXIETY 4 Suspended Dexcom G7 Cable Respooler Device USE DAILY TO CHECK BLOOD SUGARS [...] Date Food insecurity 02/04/2023 08/08/2023 Overview: Per [facility] Protocol Major depressive disorder with [...] PP sugars <120. Report levels to [facility] department weekly. 10. Advised patient that Glyburide, Metformin, and insulin may be safely used during for the control of blood sugar levels. Alexandra will begin her insulin therapy today. 11. Dietary consult to be done to instruct patient on appropriate nutrition and diet to aid in control of blood sugars. 12. Recommend urine culture each trimester. 13. Recommend [facility] ultrasound for limited anatomy at 12-14 [...] early screen is normal. 5. Recommend [facility] ultrasound for anatomy screen at 20 [...] 01/29/20 17 Overview: 03/19/[address] [facility] once MA active. Marva RN- Enrolled [...] Waiting Unit, H [address] [place] [address] Diamond Mcgowan MD [address] [place] [address] 06/09/2024 7:00 AM EDT - 06/09/2024 8:00 AM EDT Surgery CRS Waiting [facility], Cardiac Recovery Suite Waiting Unit, [address] [place] [address] Diamond Mcgowan MD [address] [place] [address] PTCA, CARDIAC ANGIOPLASTY, PERCUTANEOUS, 1 ARTERY 06/09/2024 7:00 AM EDT Office Visit Cardiology [facility], [place] [address] [place] [address] [facility] [address] [place] [address] 07/07/2024 12:30 PM EST Office Visit Orthopaedics [facility] [address] [facility] [place] [address] Ary Rowe MD [address] [facility] [place] [address] 09/01/2024 1:40 PM EST Office Visit [facility] [address] [place] [address] Adolph Aldridge MD [address] [place] [address] 04/01/2025 2:40 PM EDT Telemedicine Neurology [address] [place] [address] Eros Marks DO [address] [facility], [place] [id number] Scheduled Procedures Name Priority Associated Diagnoses Date/Ti [...] this encounter Medical Devices Implanted Type Area Underwater Hunter Trapper Device Identifier Shelf Expiration Date Model / Serial / Lot Stent Protege Gps [id number] - [id number] Implanted:Qty : 1 on 09/29/2020 by Carmelo Ramos MD at OR [facility] Left: Chest [employer] : VASCULAR [id number] 09/20/2022 [id number] -40-80 / / [id number] Stent Viab [id number] - [id number] Implanted:Qty : 1 on 04/16/2023 by Carmelo Ramos MD at OR [facility] Right: Subclavian [employer] [id number] 01/26/2026 [id number] / [id number] / [id number] documented as of this encounter Procedures Procedure [...] study not interpreted or resulted by a [facility] or [facility]. Samantha Jesus Ban DO RAD CT documented in this [...] Advance Directives occurred with: Patient Care Teams Jet Ski Mechanic Relationship Specialty Start Date End Date Adolph Aldridge MD [address] [place] [address] PCP - General Family Medicine 10/21/18 documented as of this encounter
--- OUTSIDE RECORDS SUMMARY | 2024-06-29 05:23 | External Medical Summary ---
Author Name Unknown Address Unknown Organization : Laboratory Report Ordering Provider Test Date Status BRYAN MORSE 05/21/2024 11:21:37 Final Observation Date Value Abnormality Reference (Units ) Status Glucose Point of Care 05/21/2024 11:21:37 122 Above high normal 70-120 (mg/dL) Final Performing Location
--- OUTSIDE RECORDS SUMMARY | 2024-06-29 05:23 | External Medical Summary ---
Author Name Unknown Address Unknown Organization K01:LABORATORY [facility] - [address] [place] [address] Laboratory Report Ordering Provider Test Date Status LOBO SUBRAMANIAN 05/21/2024 09:12:00 Final Observation Date Value Abnormality Reference (Units ) Status Troponin T 05/21/2024 09:12:00 176 Above upper panic limits <=14 (ng/L) Final Performing Location [facility] - [address] [place] [address]
--- OUTSIDE RECORDS SUMMARY | 2024-06-29 05:23 | External Medical Summary | Summary of Care ---
Author Name Unknown Organization [facility] Address [address] [place] [address] Phone [phone] Care Team Providers Care Logistics Team Leader Name Role Phone Adolph Aldridge MD Primary Care Provider [phone] Encounter Details Date Type Department Care Team (Late st Contact Info) Description 05/05/2024 Orders Only Unspecified Department Samantha Cevallos, DO [address] [facility] [place] [address] Allergies Active Allergy Reactions Criticality [...] 2 Suspended Additional Information OneTouch Delica Plus [id number] ns:DM type 2 with diabetic peripheral neuropathy [...] NEEDED FOR ANXIETY 4 Suspended Dexcom G7 Lathe Machinist Device USE DAILY TO CHECK BLOOD SUGARS [...] Date Food insecurity 02/04/2023 08/08/2023 Overview: Per [facility] Protocol Major depressive disorder with [...] and PP sugars <120. Report levels to [facility] department weekly. 10. Advised patient that Glyburide, Metformin, and insulin may be safely used during for the control of blood sugar levels. Alexandra will begin her insulin therapy today. 11. Dietary consult to be done to instruct patient on appropriate nutrition and diet to aid in control of blood sugars. 12. Recommend urine culture each trimester. 13. Recommend [facility] ultrasound for limited anatomy at 12-14 [...] after amniocentesis to prove lung maturity. 17. Aleaxndra is to call today to schedule follow-up [...] if early screen is normal. 5. Recommend [facility] ultrasound for anatomy screen at 20 [...] 17 Overview: 03/19/2011 Needs enrolled in [facility] once MA active. Marva RN- Enrolled 03/27/2011 [...] Waiting Unit, H [address] [address] Diamond Mcgowan MD [address] [place] [address] 06/09/2024 7:00 AM EDT - 06/09/2024 8:00 AM EDT Surgery CRS Waiting [facility], Cardiac Recovery Suite Waiting Unit, [address] [place] [address] Diamond Mcgowan MD [address] [place] [address] PTCA, CARDIAC ANGIOPLASTY, PERCUTANEOUS, 1 ARTERY 06/09/2024 7:00 AM EDT Office Visit Cardiology [facility] [place] [address] [place] [address] [facility] Cardiac Recovery [facility] [address] [place] [address] 07/07/2024 12:30 PM EST Office Visit [facility] [address] [facility] [place] [address] Ary Rowe MD [address] [place] [address] 09/01/2024 1:40 PM EST Office Visit [facility] [address] [place] [address] Adolph Aldridge MD [address] [place] [address] 04/01/2025 2:40 PM EDT Telemedicine Neurology [address] [place] [address] Eros Marks DO [address] [facility], [place] [id number] Scheduled Procedures Name Priority Associated Diagnoses Date/Ti [...] this encounter Medical Devices Implanted Type Area Invoicing Machine Operator Device Identifier Shelf Expiration Date Model / Serial / Lot Stent Protege Gps [id number] - [id number] Implanted:Qty : 1 on 09/29/2020 by Carmelo Ramos MD at OR [facility] Left: Chest [employer] : VASCULAR [id number] 09/20/2022 [id number] -40-80 / / [id number] Stent Viab [id number] - [id number] Implanted:Qty : 1 on 04/16/2023 by Carmelo Ramos MD at OR [facility] Right: Subclavian [employer] [id number] 01/26/2026 [id number] / [id number] / [id number] documented as of this encounter Procedures Procedure [...] study not interpreted or resulted by a [facility] or [facility] contracted radiologist. Samantha Jesus Ban DO RAD [...] Advance Directives occurred with: Patient Care Teams Logistics Team Leader Relationship Specialty Start Date End Date Adolph Aldridge MD [address] [place] [address] PCP - General Family Medicine 10/21/18 documented as of this encounter
--- OUTSIDE RECORDS SUMMARY | 2024-06-29 05:23 | External Medical Summary | Summary of Care ---
Author Name Unknown Organization [facility] Address [address] [place] [address] Phone [phone] Care Team Providers Care Manufacturing Business Analyst Name Role Phone Adolph Aldridge MD Primary Care Provider [phone] Encounter Details Date Type Department Care Team (Late st Contact Info) Description 05/15/2024 Orders Only Unspecified Department Samantha Cevallos, DO [address] [facility] [place] [address] Allergies Active Allergy Reactions Criticality [...] 2 Suspended Additional Information OneTouch Delica Plus [id number] ns:DM type 2 with diabetic peripheral neuropathy [...] goal of less than 7.0% ([facility]) Use to check sugars continuously. E 11.9 change every 10 days 3 Each 4 Suspended Additional Information hydrOXYzine HCl 25 MG Oral Tablet TAKE 1 TABLET BY MOUTH EVERY 6 HOURS NEEDED FOR ANXIETY 4 Suspended Dexcom G7 Pantry Worker Device USE DAILY TO CHECK BLOOD [...] Date Food insecurity 02/04/2023 08/08/2023 Overview: Per [facility] Protocol Major depressive disorder with [...] and PP sugars <120. Report levels to [facility] department weekly. 10. Advised patient that Glyburide, Metformin, and insulin may be safely used during for the control of blood sugar levels. Alexandra will begin her insulin therapy today. 11. Dietary consult to be done to instruct patient on appropriate nutrition and diet to aid in control of blood sugars. 12. Recommend urine culture each trimester. 13. Recommend [facility] ultrasound for limited anatomy at 12-14 weeks, for full anatomy at 18-20 weeks, and for echocardiography at 22-24 weeks. 14. Start testing with twice weekly NST and weekly MATTHEW beginning at 32 weeks or earlier if any evidence of uncontrolled blood sugars, renal abnormalities, or HTN. 15. Recommend [facility] growth ultrasound every 4 weeks after [...] if early screen is normal. 5. Recommend [facility] ultrasound for anatomy screen at 20 [...] Recovery Suite Waiting Unit, [address] [place] [address] Diamond Mcgowan MD [address] [place] [address] 06/09/2024 7:00 AM EDT - 06/09/2024 8:00 AM EDT Surgery CRS Waiting [facility], Cardiac Recovery Suite Waiting Unit, [address] [place] [address] Diamond Mcgowan MD [address] [place] [address] PTCA, CARDIAC ANGIOPLASTY, PERCUTANEOUS, 1 ARTERY 06/09/2024 7:00 AM EDT Office Visit Cardiology [facility] [place] [address] [place] [address] [place], Cardiac Recovery [facility] [address] [place], [place] [phone] 07/07/2024 12:30 PM EST Office Visit Orthopaedics [facility] [address] [place] [address] Ary Rowe MD [address] [place] [address] 09/01/2024 1:40 PM EST Office Visit [facility] [address] [place] [address] Adolph Aldridge MD [address] [place] [address] 04/01/2025 2:40 PM EDT Telemedicine Neurology [address] [place] [address] Eros Marks DO [address] [place], [place] [address] Scheduled Procedures Name Priority Associated Diagnoses Date/Ti [...] this encounter Medical Devices Implanted Type Area Property Claims Manager Device Identifier Shelf Expiration Date Model / Serial / Lot Stent Protege Gps [id number] - [id number] Implanted:Qty : 1 on 09/29/2020 by Carmelo Ramos MD at OR [facility] Left: Chest [employer] : VASCULAR [id number] 09/20/2022 [id number] -40-80 / / [id number] Stent Viab [id number] - [id number] Implanted:Qty : 1 on 04/16/2023 by Carmelo Ramos MD at OR [facility] Right: Subclavian [employer] [id number] 01/26/2026 [id number] / [id number] / [id number] documented as of this encounter Procedures Procedure [...] interpreted or resulted by a [facility] or [employer] contracted radiologist. Samantha Cevallos DO RADIOLOGY [...] Advance Directives occurred with: Patient Care Teams Manufacturing Business Analyst Relationship Specialty Start Date End Date Adolph Aldridge MD [address] [place] [address] PCP - General Family Medicine 10/21/18 documented as of this encounter
--- OUTSIDE RECORDS SUMMARY | 2024-06-29 05:23 | External Medical Summary | Summary of Care ---
Author Name Unknown Organization [facility] Address [address] [place] [address] Phone [phone] Care Team Providers Care Tapping Machine Operator Name Role Phone Adolph Aldridge MD Primary Care Provider [phone] Encounter Details Date Type Department Care Team (Late st Contact Info) Description 05/21/2024 Population Health External Data Unspecified Department Allergies [...] 2 Suspended Additional Information OneTouch Delica Plus Sqkxqw09MUppbrygwu ns:DM type 2 with diabetic peripheral neuropathy [...] NEEDED FOR ANXIETY 4 Suspended Dexcom G7 Progressive Care Unit Registered Nurse Device USE DAILY TO CHECK BLOOD [...] and PP sugars <120. Report levels to [facility] department weekly. 10. Advised patient that Glyburide, Metformin, and insulin may be safely used during for the control of blood sugar levels. Alexandra will begin her insulin therapy today. 11. Dietary consult to be done to instruct patient on appropriate nutrition and diet to aid in control of blood sugars. 12. Recommend urine culture each trimester. 13. Recommend [facility] ultrasound for limited anatomy at 12-14 weeks, [...] if early screen is normal. 5. Recommend [facility] ultrasound for anatomy screen at 20 weeks [...] No 01/23/2024 Does the household have a [facility] regional hospitalr source of income? (Household - for ages [...] 7:00 AM EDT Hospital Encounter CRS Waiting [facility], Cardiac Recovery Suite Waiting Unit, [address] [place] [address] Diamond Mcgowan MD [address] [place] [address] 06/09/2024 7:00 AM EDT - 06/09/2024 8:00 AM EDT Surgery CRS Waiting [facility], Cardiac Recovery Suite Waiting Unit, [address] [place] [address] Diamond Mcgowan MD [address] [place] [address] PTCA, CARDIAC ANGIOPLASTY, PERCUTANEOUS, 1 ARTERY 06/09/2024 7:00 AM EDT Office Visit Cardiology [facility] [address] [place] [address] [facility] [address] [place] [address] 07/07/2024 12:30 PM EST Office Visit Orthopaedics [facility] [address] [facility] [place] [address] Ary Rowe MD [address] [facility] [place] [address] 09/01/2024 1:40 PM EST Office Visit [facility] [address] [place] [address] Adolph Aldridge MD [address] [place] [address] 04/01/2025 2:40 PM EDT Telemedicine Neurology [address] [place] [address] Dinora Marksangeldelgado Natalie, DO [address] [place]IZ [...] this encounter Medical Devices Implanted Type Area Net C Developer Device Identifier Shelf Expiration Date Model / Serial / Lot Stent Protege Gps [id number] - [id number] Implanted:Qty : 1 on 09/29/2020 by Carmelo Ramos MD at OR [facility] Left: Chest [employer] : VASCULAR [id number] 09/20/2022 [id number] -40-80 / / [id number] Stent Viab [id number] - [id number] Implanted:Qty : 1 on 04/16/2023 by Carmelo Ramos MD at OR [facility] Right: Subclavian [employer] [id number] 01/26/2026 [id number] / [id number] / [id number] documented as of this encounter Advance Directives [...] Advance Directives occurred with: Patient Care Teams Tapping Machine Operator Relationship Specialty Start Date End Date Adolph Aldridge MD [address] [place] [facility] [place] [address] PCP - General Family Medicine 10/21/18 documented as of this encounter
--- OUTSIDE RECORDS SUMMARY | 2024-06-29 05:23 | External Medical Summary ---
Author Name Unknown Address Unknown Organization K01:LABORATORY [facility] - [facility] [address] Laboratory Report Ordering Provider Test Date Status AMIRA NEGRON 05/20/2024 23:37:00 Final Observation Date Value Abnormality Reference (Units ) Status WBC, Total 05/20/2024 23:37:00 4.07 4.00-10.80 (K/uL) Final RBC 05/20/2024 23:37:00 2.65 3.85-5.15 (M/uL) Final Hemoglobin 05/20/2024 23:37:00 8.6 Below low normal 12.0-15.3 (g/dL) Final HCT 05/20/2024 23:37:00 27.0 Below low normal 36.0-45.2 (%) Final MCV 05/20/2024 23:37:00 101.9 81.5-97.5 (fL) Final MCH 05/20/2024 23:37:00 32.5 27.0-34.0 (pg) Final MCHC 05/20/2024 23:37:00 31.9 32.0-36.0 (g/dL) Final RDW 05/20/2024 23:37:00 22.7 11.5-15.5 (%) Final Platelets 05/20/2024 23:37:00 113 Below low normal 140-400 (K/uL) Final MPV 05/20/2024 23:37:00 9.5 6.6-11.1 (fL) Final Nucleated erythrocytes/100 leukocytes [Ratio] in Blood by Automated count 05/20/2024 23:37:00 0 <=0 (/100 WBCs) Final Performing Location LABORATORY [facility] - [address] [place] [address]
--- OUTSIDE RECORDS SUMMARY | 2024-06-29 05:23 | External Medical Summary ---
Author Name Unknown Address Unknown Organization K01:LABORATORY [facility] - [facility] [place] [facility] [address] Laboratory Report Ordering Provider Test Date Status AMIRA NEGRON 05/21/2024 06:03:00 Final Observation Date Value Abnormality Reference (Units ) Status WBC, Total 05/21/2024 06:03:00 4.49 4.00-10.80 (K/uL) Final RBC 05/21/2024 06:03:00 2.56 3.85-5.15 (M/uL) Final Hemoglobin 05/21/2024 06:03:00 8.7 Below low normal 12.0-15.3 (g/dL) Final HCT 05/21/2024 06:03:00 26.2 Below low normal 36.0-45.2 (%) Final MCV 05/21/2024 06:03:00 102.3 81.5-97.5 (fL) Final MCH 05/21/2024 06:03:00 34.0 27.0-34.0 (pg) Final MCHC 05/21/2024 06:03:00 33.2 32.0-36.0 (g/dL) Final RDW 05/21/2024 06:03:00 22.6 11.5-15.5 (%) Final Platelets 05/21/2024 06:03:00 126 Below low normal 140-400 (K/uL) Final MPV 05/21/2024 06:03:00 10.0 6.6-11.1 (fL) Final Nucleated erythrocytes/100 leukocytes [Ratio] in Blood by Automated count 05/21/2024 06:03:00 0 <=0 (/100 WBCs) Final Performing Location LABORATORY [facility] - [address] [place] [address]
--- OUTSIDE RECORDS SUMMARY | 2024-06-29 05:23 | External Medical Summary ---
Author Name Unknown Address Unknown Organization K01:[facility] [place] [address] [place] [address] Laboratory Report Ordering Provider Test Date Status CARRIEJOAQUIN 05/21/2024 09:12:00 Final Observation Date Value Abnormality Reference (Units ) Status BUN 05/21/2024 09:12:00 37 Above high normal 6-20 (mg/dL) Final Creatinine 05/21/2024 09:12:00 5.2 Above high normal 0.5-1.0 (mg/dL) Final Glomerular filtration rate/1.73 sq M.predicted [Volume Rate/Area] in Serum, Plasma or Blood by Creatinine-based formula (CKD-EPI) 05/21/2024 09:12:00 10 Below low normal >=60 (mL/min) Final eGFR is calculated based on the CKD-EPI 2020 equation. Sodium 05/21/2024 09:12:00 134 Below low normal 135 -146 (mmol/L) Final Potassium 05/21/2024 09:12:00 6.1 Above high normal 3. 5-5.1 (mmol/L) Final Cl 05/21/2024 09:12:00 95 Below low normal 98- 107 (mmol/L) Final CO2 05/21/2024 09:12:00 25 22-32 (mmo l/L) Final Anion gap 05/21/2024 09:12:00 14 7-15 (mmol /L) Final Glucose 05/21/2024 09:12:00 101 70-120 (mg /dL) Final Calcium 05/21/2024 09:12:00 9.5 8.4-10.2 ( mg/dL) Final Albumin 05/21/2024 09:12:00 3.6 Below low normal 3.8 -5.0 (g/dL) Final Phosphate 05/21/2024 09:12:00 5.8 Above high normal 2. 5-4.8 (mg/dL) Final Performing Location [facility] - [address] [place] [address]
--- OUTSIDE RECORDS SUMMARY | 2024-06-29 05:23 | External Medical Summary ---
Author Name Unknown Address Unknown Organization K01:LABORATORY [facility] - [address] [place] [address] Laboratory Report Ordering Provider Test Date Status LOBO SUBRAMANIAN 05/21/2024 14:01:30 Final Observation Date Value Abnormality Reference (Units ) Status Folic Acid 05/21/2024 14:01:30 8.0 >4.5 (ng/ mL) Final Performing Location [facility] - [address] [place] [address]
--- OUTSIDE RECORDS SUMMARY | 2024-06-29 05:23 | External Medical Summary ---
Author Name Unknown Address Unknown Organization K01:[facility]ORY [facility] [place] [address] [facility] [address] Laboratory Report Ordering Provider Test Date Status LEIGH SUBRAMANIANONT 05/21/2024 06:03:00 Final Observation Date Value Abnormality Reference (Units ) Status Retic, % (auto) 05/21/2024 06:03:00 4.39 Above high normal 0.80-1.90 (%) Final Reticulocytes, Absolute 05/21/2024 06:03:00 113.7 Above high normal 31.3-100.1 (K/uL) Final Reticulocyte fraction, immature 05/21/2024 06:03:00 32.3 Above high normal 2.5-20.6 (%) Final Reticulocyte HGB 05/21/2024 06:03:00 35.1 29.7-37.4 (pg) Final Performing Location LABORATORY [facility] - [address] [facility] [address]
--- OUTSIDE RECORDS SUMMARY | 2024-06-29 05:23 | External Medical Summary | Summary of Care ---
Author Name Unknown Organization [facility] Address [address] [place] [address] Phone [phone] Care Team Providers Care Lye Boiler Name Role Phone Adolph Aldridge MD Primary Care Provider [phone] Encounter Details Date Type Department Care Team (Late st Contact Info) Description 04/28/2024 Orders Only Unspecified Department Samantha Cevallos, DO [address] [facility] [place] [address] Allergies Active Allergy Reactions Criticality [...] 2 Suspended Additional Information OneTouch Delica Plus [id number] ns:DM type 2 with diabetic peripheral neuropathy [...] goal of less than 7.0% ([facility]) Use to check sugars continuously. E 11.9 change every 10 days 3 Each 4 Suspended Additional Information hydrOXYzine HCl 25 MG Oral Tablet TAKE 1 TABLET BY MOUTH EVERY 6 HOURS NEEDED FOR ANXIETY 4 Suspended Dexcom G7 Microbiology Analyst Device USE DAILY TO CHECK BLOOD SUGARS [...] Date Food insecurity 02/04/2023 08/08/2023 Overview: Per [facility] Protocol Major depressive disorder with [...] and PP sugars <120. Report levels to [facility] department weekly. 10. Advised patient that Glyburide, Metformin, and insulin may be safely used during for the control of blood sugar levels. Alexandra will begin her insulin therapy today. 11. Dietary consult to be done to instruct patient on appropriate nutrition and diet to aid in control of blood sugars. 12. Recommend urine culture each trimester. 13. Recommend [facility] ultrasound for limited anatomy at 12-14 weeks, [...] if early screen is normal. 5. Recommend [facility] ultrasound for anatomy screen at 20 weeks [...] 01/29/20 17 Overview: 03/19/2011 Needs enrolled in [facility] once MA active. Marva RN- Enrolled [...] Waiting Unit, [address] [place] [address] Diamond Mcgowan MD [address] [place] [address] 06/09/2024 7:00 AM EDT - 06/09/2024 8:00 AM EDT Surgery CRS Waiting [facility] [place], Cardiac Recovery Suite Waiting Unit, [address] [place] [address] Diamond Mcgowan MD [address] [place] [address] PTCA, CARDIAC ANGIOPLASTY, PERCUTANEOUS, 1 ARTERY 06/09/2024 7:00 AM EDT Office Visit Cardiology [facility] [place] [address] [place] [address] [facility] Cardiac Recovery [facility] [address] [place] [address] 07/07/2024 12:30 PM EST Office Visit Orthopaedics [facility] [address] [place] [address] Ary Rowe MD [address] [facility] [address] 09/01/2024 1:40 PM EST Office Visit [facility] [address] [place] [id number] Adolph Aldridge MD [address] [place] [address] 04/01/2025 2:40 PM EDT Telemedicine Neurology [address] [place] [address] Eros Marks DO [address] [facility], [place] [id number] Scheduled Procedures Name Priority Associated Diagnoses Date/Ti [...] this encounter Medical Devices Implanted Type Area Museum Service Scheduler Device Identifier Shelf Expiration Date Model / Serial / Lot Stent Protege Gps [id number] - [id number] Implanted:Qty : 1 on 09/29/2020 by Carmelo Ramos MD at [place] [facility] [place] Left: Chest [employer] : VASCULAR [id number] 09/20/2022 [id number] / / [id number] Stent Viab [id number] - [id number] Implanted:Qty : 1 on 04/16/2023 by Carmelo Ramos MD at OR [facility] [place] Right: Subclavian [employer] [id number] 01/26/2026 [id number] / [id number] / [id number] documented as of this encounter Procedures Procedure [...] study not interpreted or resulted by a [facility] or [facility] contracted radiologist. Samantha Cevallos DO RADIOLOGY (RAD [...] Advance Directives occurred with: Patient Care Teams Lye Boiler Relationship Specialty Start Date End Date Adolph Aldridge MD [address] [place] [address] PCP - General Family Medicine 10/21/18 documented as of this encounter
--- OUTSIDE RECORDS SUMMARY | 2024-06-29 05:23 | External Medical Summary ---
Author Name Unknown Address Unknown Organization [id number][place] [place] [address] [facility] [address] Laboratory Report Ordering Provider Test Date Status AMIRA NEGRON 05/20/2024 23:37:00 Final Observation Date Value Abnormality Reference (Units ) Status BUN 05/20/2024 23:37:00 31 Above high normal 6-20 (mg/dL) Final Creatinine 05/20/2024 23:37:00 4.6 Above high normal 0.5-1.0 (mg/dL) Final Glomerular filtration rate/1.73 sq M.predicted [Volume Rate/Area] in Serum, Plasma or Blood by Creatinine-based formula (CKD-EPI) 05/20/2024 23:37:00 12 Below low normal >=60 (mL/min) Final eGFR is calculated based on the CKD-EPI 2020 equation. Sodium 05/20/2024 23:37:00 134 Below low normal 135 -146 (mmol/L) Final Potassium 05/20/2024 23:37:00 5.5 Above high normal 3. 5-5.1 (mmol/L) Final Cl 05/20/2024 23:37:00 95 Below low normal 98- 107 (mmol/L) Final CO2 05/20/2024 23:37:00 25 22-32 (mmo l/L) Final Anion gap 05/20/2024 23:37:00 14 7-15 (mmol /L) Final Glucose 05/20/2024 23:37:00 113 70-120 (mg /dL) Final Albumin 05/20/2024 23:37:00 3.7 Below low normal 3.8 -5.0 (g/dL) Final AST (Aspartate aminotransferase) 05/20/2024 23:37:00 27 10-35 (U/L) Fin al Results may be falsely eleva hector due to hemolysis. Alk Phos 05/20/2024 23:37:00 146 Above high normal 35 -130 (U/L) Final Bilirubin, Total 05/20/2024 23:37:00 0.4 <=1 .2 (mg/dL) Final Calcium 05/20/2024 23:37:00 9.6 8.4-10.2 ( mg/dL) Final Protein 05/20/2024 23:37:00 5.9 Below low normal 6.0 -8.3 (g/dL) Final ALT (Alanine aminotransferase) 05/20/2024 23:37:00 15 10-35 (U/L) Jeromy pastor Performing Location [facility] [place] [facility] [address]. [facility] [address]
--- OUTSIDE RECORDS SUMMARY | 2024-06-29 05:23 | External Medical Summary ---
Author Name Unknown Address Unknown Organization [id number][place] [place] [place] [address] [address] Laboratory Report Ordering Provider Test Date Status AMIRA NEGRON 05/20/2024 23:57:00 Final Observation Date Value Abnormality Reference (Units ) Status ABO 05/20/2024 23:57:00 A Final RH 05/20/2024 23:57:00 Positive Final RED BLOOD CELL ANTIBODY SCREEN 05/20/2024 23:57:00 Negative Final SPECIMEN EXPIRATION DATE 05/20/2024 23:57:00 05/23/2024 23:59 Final Performing Location [facility] [place] [address] [address]
--- OUTSIDE RECORDS SUMMARY | 2024-06-29 05:23 | External Medical Summary | Summary of Care ---
Author Name Unknown Organization [facility] Address [address] [place] [address] Phone [phone] Care Team Providers Care Geological Engineering Teacher Name Role Phone Adolph Aldridge MD Primary Care Provider [phone] Encounter Details Date Type Department Care Team (Late st Contact Info) Description 05/20/2024 Orders Only Unspecified Department Samantha Cevallos, DO [address] [facility] [place] [address] Allergies Active Allergy Reactions Criticality [...] 2 Suspended Additional Information OneTouch Delica Plus [id number] ns:DM type 2 with diabetic peripheral neuropathy [...] hemoglobin A1c goal of less than 7.0% ([facility]) Use to check sugars continuously. E 11.9 change every 10 days 3 Each 4 Suspended Additional Information hydrOXYzine HCl 25 MG Oral Tablet TAKE 1 TABLET BY MOUTH EVERY 6 HOURS NEEDED FOR ANXIETY 4 Suspended Dexcom G7 Thresher Broom[employer] Device USE DAILY TO CHECK BLOOD SUGARS [...] and PP sugars <120. Report levels to [facility] department weekly. 10. Advised patient that Glyburide, Metformin, and insulin may be safely used during for the control of blood sugar levels. Alexandra will begin her insulin therapy today. 11. Dietary consult to be done to instruct patient on appropriate nutrition and diet to aid in control of blood sugars. 12. Recommend urine culture each trimester. 13. Recommend [facility] ultrasound for limited anatomy at 12-14 weeks, for full anatomy at 18-20 weeks, and for echocardiography at 22-24 weeks. 14. Start testing with twice weekly NST and weekly MATTHEW beginning at 32 weeks or earlier if any evidence of uncontrolled blood sugars, renal abnormalities, or HTN. 15. Recommend [facility] growth ultrasound every 4 weeks after [...] if early screen is normal. 5. Recommend [facility] ultrasound for anatomy screen at 20 [...] AM EDT Hospital Encounter CRS Waiting [facility] [place], Cardiac Recovery Suite Waiting Unit, [address] [place] [address] Diamond Mcgowan MD [address] [place] [address] 06/09/2024 7:00 AM EDT - 06/09/2024 8:00 AM EDT Surgery CRS Waiting [facility], Cardiac Recovery Suite Waiting Unit, [address] [place] [address] Diamond Mcgowan MD [facility] [place] [address] PTCA, CARDIAC ANGIOPLASTY, PERCUTANEOUS, 1 ARTERY 06/09/2024 7:00 AM EDT [facility] [address] [place] [address] Formerly [facility] [address] [place] [address] 07/07/2024 12:30 PM EST Office Visit Orthopaedics [facility] [address] [place] [address] Ary Rowe MD [address] [address] 09/01/2024 1:40 PM EST Office Visit [address] [phone] Adolph Aldridge MD [facility] [place] [address] 04/01/2025 2:40 PM EDT Telemedicine Neurology [address] [place] [address] Eros Marks, DO [address] [place] [address] Scheduled Procedures Name Priority Associated [...] this encounter Medical Devices Implanted Type Area Lubrication Equipment Servicer Device Identifier Shelf Expiration Date Model / Serial / Lot Stent Protege Gps [id number] - [id number] Implanted:Qty : 1 on 09/29/2020 by Carmelo Ramos MD at OR [facility] [place] Left: Chest [employer] : VASCULAR [id number] 09/20/2022 [id number] / / [id number] Stent Viab [id number] - [id number] Implanted:Qty : 1 on 04/16/2023 by Carmelo Ramos MD at OR [facility] [place] Right: Subclavian [employer] [id number] 01/26/2026 [id number] / [id number] / [id number] documented as of this encounter Procedures Procedure [...] interpreted or resulted by a [facility] or [facility] contracted radiologist. Samantha Cevallos DO RADIOLOGY (RAD [...] Advance Directives occurred with: Patient Care Teams Geological Engineering Teacher Relationship Specialty Start Date End Date Adolph Aldridge MD [address] [place] [address] PCP - General Family Medicine 10/21/18 documented as of this encounter
[2024-06-29 06:19] LABS: Basophils # (auto) 0.02 K/uL (0.00-0.20); Basophils % (auto) 0.4 %; Eosinophils % (auto) 1.8 %; Hematocrit (blood only) 28.7 % (37.0-47.0); Hemoglobin 9.1 g/dl (12.0-16.0); Immature Granulocytes # (auto) 0.02 K/uL (0.01-0.20); Immature Granulocytes % (auto) 0.4 %; Lymphocytes # (auto) 0.46 K/uL (1.20-3.40); Lymphocytes % (auto) 8.3 %; Mean Corpuscular Hemoglobin 32.6 pg (25.0-34.0); Mean Corpuscular Hgb Conc 31.7 g/dL (32.0-36.0); Mean Corpuscular Volume 102.9 fL (80.0-100.0); Mean Platelet Volume 9.7 fL (9.4-12.4); Monocytes # (auto) 0.53 K/uL (0.11-0.59); Monocytes % (auto) 9.6 %; Neutrophils # (auto) 4.39 K/uL (1.40-6.50); Neutrophils % (auto) 79.5 %; Platelet Count 119 K/uL (130-400); RDW Coefficient of Variation 18.5 % (11.5-14.5); RDW Standard Deviation 66.7 fL (36.4-46.3); Red Blood Count 2.79 M/uL (4.20-5.40); White Blood Count 5.52 K/ul (4.8-10.8)
--- NOTE | 2024-06-29 06:21 | Emergency Department Note ---
Impression & Plan Substernal chest pain, ESRD (end stage renal disease) on dialysis, Coronary artery disease, History of heart artery stent ED Provider Note NAME: NATHALIA DUTTON AGE: 38 SEX: F : 1985 ARRIVES VIA: Ambulance INFORMANT: Patient ED PROVIDER(S): Shaun Cross MD CHIEF COMPLAINT: Chest pain PLAN: Disposition: Admit MEDICAL DECISION MAKING: The patient is a pleasant 38-year-old woman with a past medical history of end- stage renal disease on hemodialysis Saturday, CAD with history of RCA PCI in April and LAD PCI May of this year, hypertension, medical noncompliance who presents to the emergency department via EMS for evaluation of substernal chest pain that began at midnight last night and has been constant. The patient received 324 mg of aspirin and nitroglycerin x 1 by EMS but the patient denies any change in her pain. She denies any new cough or congestion. She denies nausea, vomiting. She reports loose stool but this is baseline for her. She reports that she has been going to dialysis and has not missed any of her sessions. She reports she is due for dialysis this morning but did not go due to her chest pain and calling 911. She denies any fevers but has felt feverish over the past several days. She reports since having her second PCI at [place] for her LAD she has been doing well and feels that her tolerance for exertion has improved. On evaluation patient no distress, afebrile with stable vital signs. She has diminished breath sounds of bilateral lower lung snow and are otherwise clear. She appears mildly hypervolemic. EKG without overt acute ischemia. CXR with moderate cardiomegaly similar to prior. There is mild prominence of bronchovascular markings. Description of supraspinatus calcific tendinopathy out of [id number] on prior x-ray but has been present previously. WBC is 5.5, within normal limits without neutrophilia or left shift. H/H 9.1/20.7, similar to prior range values. Platelets 1 19K similar to prior range of values. Chemistry without metabolic acidosis. Potassium is 4.9, within normal limits. Creatinine is 8.3 in the setting of end-stage renal disease on hemodialysis. BUN is 49, similar to prior range values. LFTs are unremarkable. High-sensitivity troponin is 53, similar to lower end of prior range of values in setting of end-stage renal disease. Limited bedside cardiac ultrasound was performed. Equivocal/trace pericardial fluid but no overtly identified pericardial effusion on limited views. We did discuss trial of additional nitroglycerin to see if her pain improves however the patient felt this did not help and preferred to defer this. Thus, we will proceed with trial of IV APAP. Patient does agree with plan for admission for further management including her dialysis which she is due today. Case was discussed with Rigo Nicole, with Dr. Manuel miller who will evaluate the patient for admission. Further management per admitting team. Triage Nursing notes reviewed and agree them. Prior/external medical records reviewed Vital Signs: reviewed Differential diagnosis: Cardiac ischemia, aortic dissection, pulmonary embolism, pneumothorax, pneumonia, pericarditis, myocarditis, esophageal rupture, GERD, cholecystitis, pancreatitis, musculoskeletal, as well as other pathologies. ER treatment provided: See below. Diagnostics interpreted by me: ECG: Normal sinus rhythm, 94 bpm, no ectopy, LVH, no overt ST elevation or depression, QTc 500, QRS 98. Cardiac Monitoring: An order for continuous cardiac monitoring was placed and demonstrated Normal sinus rhythm, 94 bpm, no ectopy Laboratory studies: See below Imaging studies: See below Consultation(s): Rigo Nicole, with Dr. Manuel miller. HPI: The patient is a pleasant 38-year-old woman with a past medical history of end-stage renal disease on hemodialysis Saturday, CAD with history of RCA PCI in April and LAD PCI May of this year, hypertension, medical noncompliance who presents to the emergency department via EMS for evaluation of substernal chest pain that began at midnight last night and has been constant. The patient received 324 mg of aspirin and nitroglycerin x 1 by EMS but the patient denies any change in her pain. She denies any new cough or congestion. She denies nausea, vomiting. She reports loose stool but this is baseline for her. She reports that she has been going to dialysis and has not missed any of her sessions. She reports she is due for dialysis this morning but did not go due to her chest pain and calling 911. She denies any fevers but has felt feverish over the past several days. She reports since having her second PCI at [place] for her LAD she has been doing well and feels that her tolerance for exertion has improved. ROS: See above HPI for pertinent positives & negatives. A total of 10 systems reviewed and were otherwise negative. VITALS:See Below PHYSICAL EXAMINATION: GENERAL: Awake, alert in no distress HENT: Normocephalic, atraumatic. Oropharynx unremarkable. EYES: Normal conjunctiva. Sclera non-icteric. NECK: Supple. No nuchal rigidity. FROM. RESPIRATORY: Clear to auscultation. CARDIAC: Regular rate, normal rhythm. Extremities warm and well perfused. Pulses equal. BUE AV fistula with palpable thrill. ABDOMEN: Soft, non-distended. No tenderness to palpation. No rebound or guarding. No masses. MUSCULOSKELETAL: Chest examination reveals no tenderness. The back is symmetrical on inspection without obvious abnormality. There is no CVA tenderness to palpation. No joint edema. LOWER EXTREMITIES: Calves are equal size bilaterally and non-tender. No edema. No discoloration. NEURO: Normal sensorium. No sensory or motor deficits noted. SKIN: No rash or jaundice noted. Shaun Cross MD Past Med/Surg History Problem List (Updated 06/29/24 @ 12:07 by Shaun Cross MD) History of heart artery stent (Acute) Coronary artery disease (Acute) ESRD (end stage renal disease) on dialysis (Acute) Substernal chest pain (Acute) Atypical chest pain (Acute) Anemia (Acute) Atypical chest pain (Acute) Abnormal laboratory test (Acute) Coronary artery disease due to calcified coronary lesion Dialysis complication (Acute) Syncope (Acute) Acute hyperkalemia (Acute) Symptomatic anemia (Acute) Episode of syncope Rectal bleeding Chest pain (Acute) ESRD on dialysis (Acute) Acute hyperkalemia (Acute) Elevated troponin (Acute) Chest pain not due to acute coronary syndrome (Acute) Bleeding external hemorrhoids (Acute) Non-compliance (Acute) Fluid overload (Acute) Uremia (Acute) Anemia (Acute) Depression (Acute) Weakness (Acute) Sleep deprivation (Acute) Hallucinations (Acute) Anemia (Acute) Dialysis patient (Acute) Medical non-compliance (Acute) Acute uremia (Acute) Shortness of breath (Acute) Elevated troponin (Acute) Acute hyperkalemia (Acute) SOB (shortness of breath) (Acute) SOB (shortness of breath) (Acute) CHF (congestive heart failure) (Acute) Acute uremia (Acute) Somnolence (Acute) Medical non-compliance (Acute) Elevated troponin (Acute) Dialysis patient (Acute) Renal failure (Acute) Hyperkalemia (Acute) Thrombocytopenia COVID-19 (Acute) Renal osteodystrophy Anemia in ESRD (end-stage renal disease) ESRD (end stage renal disease) on dialysis (Acute) DM2 (diabetes mellitus, type 2) (Acute) Anxiety Depression Major depressive disorder, recurrent, in partial remission Depression with anxiety Anemia of chronic disease Status post fall last fallNovember 2022 > nasal fx / knee pain, no surgery for either injury > resolved per pt report Prolonged QT interval (Acute) no cardio HTN (hypertension) (Acute) Anemia due to end stage renal disease (Acute) FSGS (focal segmental glomerulosclerosis) (Chronic) DX INITIALLY 2012 (CAUSING ESRD 2012) Medical History Mood disorder Anxiety disorder, unspecified Abnormal chest xray Elevated lactic acid level Transaminitis Pneumonia Metabolic encephalopathy Acute non-ST elevation myocardial infarction (NSTEMI) Pulmonary edema Acute hyperkalemia Acute alteration in mental status Renal failure (ARF), acute on chronic Encephalopathy Facial fracture GI bleed ESRD (end stage renal disease) on dialysis Symptomatic anemia Tobacco abuse DVT prophylaxis Fistula right arm (currently being used) and left arm Dialysis patient SATURDAY/SAT/SATUR[place] AT [facility] [place] (gastroesophageal reflux disease) Bipolar disorder Restless leg syndrome Peripheral neuropathy Asthma rare res inh use History of abnormal cervical Papanicolaou smear Elevated troponin Acute electrocardiogram changes Surgical History H/O eye surgery LASER SURGERY LEFT History of surgery left arm d/t clot in arm from AV fistula use @ [facility] History of surgery (~09/09/20) perm cath > since removed History of colonoscopy Kidney transplant recipient 2013 AT [facility] History of tooth extraction three TOOTH History of cardiac cath 2016 NO STENTS AVF (arteriovenous fistula) bilat upper arms ---currently using right for dialysis Family History Grandmother Hx of CABG Mother Diabetes Father Crohn's disease Grandfather (Maternal) Diabetes Uncle Diabetes Grandmother (Maternal) Family history of reaction to anesthesia difficulty waking with colonoscopy Social History Smoking Status: Former smoker Tobacco Type: Cigarettes Cigarettes Per Day: 20; Smoking End Date: 3 months ago; Second Hand Exposure: Yes (on occasion); Do You Dip or Chew Tobacco: No; Tobacco Cessation Education Requested by Patient: No Hx Alcohol Use: Yes Alcohol type: hard liquor Alcohol Intake Frequency Comment: q3 months Hx Substance Use: No Preferred Language: Albanian Communication Ability: Effective Hat Model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 Beliefs That Will Affect Care: None marital status: Single Current Living Situation: Family Current Living Situation Comment: grandparents How many Children do You have: 3 Other Information That Helps Us Care for You: No Feels Safe at Home: Yes Safety Concerns: Feels Safe At This Time Assistive Devices: Glasses Allergies Allergies Allergy/AdvReac Type Severity Reaction Status Date / Time cefaclor Allergy Intermediate Rash Verified 06/25/24 10:45 Cephalosporins Allergy Intermediate Rash Verified 06/25/24 10:45 amoxicillin AdvReac Intermediate VOMITING Verified 06/25/24 10:45 clavulanic acid AdvReac Intermediate VOMITING Verified 06/25/24 10:45 Home Meds Home Medications Medication Instructions Recorded Confirmed albuterol sulfate 2.5 mg/3 mL 2.5 mg inhalation Q4H PRN 06/08/23 06/29/24 (0.083 %) solution for nebulization Shortness Of Breath Or Wheezing albuterol sulfate 90 mcg/actuation 2 puff inhalation Q6H PRN 06/08/23 06/29/24 aerosol inhaler Shortness Of Breath Or Wheezing carbamazepine 200 mg tablet 200 mg PO AMPM 06/08/23 06/29/24 hydroxyzine HCl 25 mg tablet 25 mg PO Q6H PRN Anxiety 06/08/23 06/29/24 lorazepam 0.5 mg tablet 0.5 mg PO Q8 PRN Anxiety 06/08/23 06/29/24 mometasone-formoterol HFA 200 2 puff inhalation BID 06/08/23 06/29/24 mcg-5 mcg/actuation aerosol inhaler (Dulera) vitamin B complex-vitamin C-folic 1 tab PO DAILY 06/08/23 06/29/24 acid 0.8 mg tablet (Renal-Rika) benzonatate 100 mg capsule 200 mg PO TID PRN Cough 08/29/23 06/29/24 calcium acetate(phosphat bind) 667 2,001 mg PO UD 08/29/23 06/29/24 mg capsule cinacalcet 90 mg tablet 90 mg PO QDD 08/29/23 06/29/24 medroxyprogesterone 150 mg/mL 150 mg IM UD 08/29/23 06/29/24 intramuscular suspension (Depo-Provera) bupropion HCl 150 mg 24 hr tablet, 150 mg PO QAM 04/17/24 06/29/24 extended release mirtazapine 7.5 mg tablet 7.5 mg PO HS 04/17/24 06/29/24 Previous Rx's Medication Instructions Recorded hydrocortisone 1 %-pramoxine 1 % 1 applic MO QID PRN itching #10 04/11/24 rectal foam (Proctofoam HC) grams lidocaine 5 % topical ointment 1 applic topical QID PRN pain #30 04/11/24 grams varenicline 0.5 mg tablet 0.5 mg PO DAILY #30 tabs 04/30/24 aspirin 81 mg tablet,delayed 81 mg PO QAM #30 tabs 05/09/24 release clopidogrel 75 mg tablet 75 mg PO QAM #30 tabs 05/09/24 metoprolol succinate 25 mg 25 mg PO BID #60 tabs 05/09/24 tablet,extended release 24 hr rosuvastatin 20 mg tablet 20 mg PO QAM #30 tabs 05/09/24 gabapentin 100 mg capsule 200 mg (2 x 100 mg) PO TID #180 05/10/24 caps pantoprazole 40 mg tablet,delayed 40 mg PO BID #60 tabs 05/10/24 release Results & Data (ED) Vital Signs Vital Signs - 24 hr 06/29/24 05:11 06/29/24 05:20 06/29/24 05:20 Temperature 36.5 C Temperature Source Oral Pulse Rate 93 H 91 H Pulse Rate [Apical] Pulse Rate from SpO2 Sensor Respiratory Rate 18 Respiratory Effort / Characteristics Non-Labored Spontaneous SOB on Exertion Respiratory Depth Normal Respiratory Pattern Regular Blood Pressure 129/80 Blood Pressure [Left Arm] Blood Pressure Mean 96 Blood Pressure Mean [Left Arm] Blood Pressure Position Sitting Pulse Oximetry 98 Oxygen Delivery Method Room Air Room Air Sepsis Recent Fever Within 48 Hours No Sepsis New/Unexplained Change in Mental Status N/A Sepsis Action Taken by Nursing No Action Required 06/29/24 05:22 06/29/24 05:23 06/29/24 06:30 Temperature Temperature Source Pulse Rate 92 H Pulse Rate [Apical] Pulse Rate from SpO2 Sensor 92 H Respiratory Rate 16 Respiratory Effort / Characteristics Respiratory Depth Respiratory Pattern Blood Pressure 108/69 Blood Pressure [Left Arm] Blood Pressure Mean 82 Blood Pressure Mean [Left Arm] Blood Pressure Position Pulse Oximetry 98 98 96 Oxygen Delivery Method Room Air Room Air Room Air Sepsis Recent Fever Within 48 Hours Sepsis New/Unexplained Change in Mental Status Sepsis Action Taken by Nursing 06/29/24 07:33 Temperature Temperature Source Pulse Rate Pulse Rate [Apical] 91 H Pulse Rate from SpO2 Sensor Respiratory Rate 18 Respiratory Effort / Characteristics Respiratory Depth Respiratory Pattern Blood Pressure Blood Pressure [Left Arm] 124/71 Blood Pressure Mean Blood Pressure Mean [Left Arm] 88 Blood Pressure Position Pulse Oximetry 96 Oxygen Delivery Method Sepsis Recent Fever Within 48 Hours Sepsis New/Unexplained Change in Mental Status Sepsis Action Taken by Nursing Laboratory Data Attestation: I reviewed the patient's lab results. 06/29/24 05:56 06/29/24 05:56 Lab Results 06/29/24 06/29/24 06/29/24 Range/Units 05:56 07:00 07:45 WBC 5.52 (4.8-10.8) K/ul RBC 2.79 L (4.20-5.40) M/uL Hgb 9.1 L (12.0-16.0) g/dl Hct 28.7 L (37.0-47.0) % MCV 102.9 H (80.0-100.0) fL MCH 32.6 (25.0-34.0) pg MCHC 31.7 L (32.0-36.0) g/dL RDW Std Deviation 66.7 H (36.4-46.3) fL RDW Coeff of Laith 18.5 H (11.5-14.5) % Plt Count 119 L (130-400) K/uL MPV 9.7 (9.4-12.4) fL Immature Gran % (Auto) 0.4 % Neut % (Auto) 79.5 % Lymph % (Auto) 8.3 % [place] % (Auto) 9.6 % Eos % (Auto) 1.8 % Baso % (Auto) 0.4 % Neut # (Auto) 4.39 (1.40-6.50) K/uL Lymph # (Auto) 0.46 L (1.20-3.40) K/uL [place] # (Auto) 0.53 (0.11-0.59) K/uL Eos # (Auto) 0.10 (0.00-0.50) K/uL Baso # (Auto) 0.02 (0.00-0.20) K/uL Immature Gran # (Auto) 0.02 (0.01-0.20) K/uL PT 11.2 (9.0-12.0) Seconds INR 1.0 (0.9-1.1) Sodium 138 (136-145) mmol/L Potassium 4.9 (3.5-5.1) mmol/L Chloride 94 L (98-107) mmol/L Carbon Dioxide 32 (21-32) mmol/L Anion Gap 12 H (3-11) BUN 49 H (6-23) mg/dl Creatinine 8.39 H* (0.6-1.2) mg/dl Est Cr Clr Drug Dosing 10.2 ml/min eGFR 5.76 BUN/Creatinine Ratio 5.8 L (10-20) Glucose 127 H (70-99(Fasting)) mg/dl Calcium 9.8 (8.6-10.3) mg/dl Phosphorus 5.9 H (2.5-4.9) mg/dl Magnesium 2.4 (1.7-2.4) mg/dl Total Bilirubin 0.7 (0.2-1.0) mg/dl AST 18 (13-39) U/L ALT 11 (7-52) U/L Alkaline Phosphatase 116 H (34-104) U/L Troponin I High Sens 53.0 H* 54.3 H* (0-14) pg/ml Total Protein 6.5 (6.0-8.3) gm/dl Albumin 4.1 (3.4-5.0) gm/dl Globulin 2.4 L (2.5-4.0) gm/dl Albumin/Globulin Ratio 1.7 (0.9-2) Lipase 18 (11-82) U/L Adenovirus (PCR) Not Detected (NotDetected) B. pertussis DNA (PCR) Not Detected (NotDetected) B.parapertussis DNA PCR Not Detected (NotDetected) C. pneumoniae DNA (PCR) Not Detected (NotDetected) Coronavirus OC43 (PCR) Not Detected (NotDetected) Coronavirus HKU1 (PCR) Not Detected (NotDetected) Coronavirus 229E (PCR) Not Detected (NotDetected) SARS-CoV-2 (PCR) Not Detected (NotDetected) Coronavirus NL63 (PCR) Not Detected (NotDetected) Human Metapneumovir PCR Not Detected (NotDetected) Influenza Type A (PCR) Not Detected (NotDetected) Influenza Type B (PCR) Not Detected (NotDetected) M. pneumoniae (PCR) Not Detected (NotDetected) Parainfluenza 1 (PCR) Not Detected (NotDetected) Parainfluenza 2 (PCR) Not Detected (NotDetected) Parainfluenza 3 (PCR) Not Detected (NotDetected) Parainfluenza 4 (PCR) Not Detected (NotDetected) RSV (PCR) Not Detected (NotDetected) Entero/Rhino (PCR) DETECTED A (NotDetected) Administered Medications Discontinued Medications Acetaminophen (Ofirmev) 1,000 mg in 100 mls @ 400 mls/hr IV NOW STA Stop: 06/29/24 07:03 Last Infusion: 06/29/24 08:01 Dose: Infused Documented By: Admin: 06/29/24 07:27 Dose: 400 mls/hr Documented By: THELMA Tramadol HCl (Tramadol Hcl 50 Mg Tablet) 25 mg PO NOW STA Stop: 06/29/24 09:17 Last Admin: 06/29/24 09:48 Dose: 25 mg Documented By: THELMA Imaging Data Radiologist's Impression: Chest X-Ray 06/29/24 05:09 EXAM: XR chest 1V portable CLINICAL HISTORY: chest pain jmf TECHNIQUE: X-ray image of the chest is obtained in AP projection. COMPARISON: 11/26/2018. FINDINGS: Pulmonary Parenchyma: Mild prominence of the bronchovascular markings, a nonspecific finding, may be seen in the lung congestion. No evidence of consolidation, collapse, or focal opacities. No pulmonary nodules are identified. No evidence of pleural effusion or pleural thickening. Heart and Mediastinum: Cardiac silhouette is enlarged in size. No mediastinal widening or masses. No hilar or mediastinal lymphadenopathy. Bony Thorax: Bony thorax appears intact without fractures or deformities. Vascular stents are noted in the region of the right subclavian vessel and another stent is noted in the mediastinum above the level of rk. These were not seen previously. Incidental note made of dense globular calcification lateral to the humeral head along the course of the supraspinatus tendon. Soft Tissues: Soft tissues overlying the chest wall are unremarkable. IMPRESSION: 1. Moderate cardiomegaly, redemonstrated. 2. Mild prominence of the bronchovascular markings on current x ray, a nonspecific finding, may be seen in the lung congestion. 3. Supraspinatus calcific tendinopathy, not seen previously. Suggest clinical correlation. Electronically signed by Betty Faust 06-29-2024 06:35 AM Discharge Plan Visit Data Chief Complaint: Chest Pain Stated Complaint: Chest Pain, SOB ED Provider: Shaun Cross Discharge Problem: Substernal chest pain, ESRD (end stage renal disease) on dialysis, Coronary artery disease, History of heart artery stent Patient Disposition: Admitted As Inpatient Discharge Instructions Interventions: ED Discharge Assessment Last Done: 06/29/24 10:58 Discharge Problem: Coronary artery disease Qualifiers: Coronary Disease-Associated Artery/Lesion type: unspecified vessel or lesion type [place] vs. transplanted heart: [place] heart Associated angina: unspecified whether angina present Qualified Code(s): I25.10 - Atherosclerotic heart disease of [place] coronary artery without angina pectoris
--- NOTE | 2024-06-29 06:36 | XRay Report ---
EXAM: XR chest 1V portable CLINICAL HISTORY: chest pain [facility] TECHNIQUE: X-ray image of the chest is obtained in AP projection. COMPARISON: 11/26/2018. FINDINGS: Pulmonary Parenchyma: Mild prominence of the bronchovascular markings, a nonspecific finding, may be seen in the lung congestion. No evidence of consolidation, collapse, or focal opacities. No pulmonary nodules are identified. No evidence of pleural effusion or pleural thickening. Heart and Mediastinum: Cardiac silhouette is enlarged in size. No mediastinal widening or masses. No hilar or mediastinal lymphadenopathy. Bony Thorax: Bony thorax appears intact without fractures or deformities. Vascular stents are noted in the region of the right subclavian vessel and another stent is noted in the mediastinum above the level of rk. These were not seen previously. Incidental note made of dense globular calcification lateral to the humeral head along the course of the supraspinatus tendon. Soft Tissues: Soft tissues overlying the chest wall are unremarkable. IMPRESSION: 1. Moderate cardiomegaly, redemonstrated. 2. Mild prominence of the bronchovascular markings on current x ray, a nonspecific finding, may be seen in the lung congestion. 3. Supraspinatus calcific tendinopathy, not seen previously. Suggest clinical correlation. Electronically signed by Betty Faust 06-29-2024 06:35 AM
[2024-06-29 06:40] LABS: Albumin Globulin Ratio 1.7 (0.9-2); Albumin Level 4.1 gm/dl (3.4-5.0); BUN Creatinine Ratio 5.8 (10-20); Bilirubin,Total 0.7 mg/dl (0.2-1.0); Calcium 9.8 mg/dl (8.6-10.3); Creatinine Clr Calc Pharmacy 10.2 ml/min; Globulin 2.4 gm/dl (2.5-4.0); Magnesium 2.4 mg/dl (1.7-2.4); Phosphorus 5.9 mg/dl (2.5-4.9); Potassium 4.9 mmol/L (3.5-5.1); Total Protein 6.5 gm/dl (6.0-8.3)
[2024-06-29 06:43] LABS: Prothrombin Time 11.2 Seconds (9.0-12.0)
[2024-06-29] MEDS: ACETAMINOPHEN 1,000 MG/100 ML VIAL IV STA (07:27)
[2024-06-29 08:32] LABS: Adenovirus PCR Not Detected (NotDetected); Bordetella parapertussis PCR Not Detected (NotDetected); Bordetella pertussis PCR Not Detected (NotDetected); Chlamydia pneumoniae PCR Not Detected (NotDetected); Coronavirus 229E PCR Not Detected (NotDetected); Coronavirus CoV-2 (COVID19)PCR Not Detected (NotDetected); Coronavirus HKU1 PCR Not Detected (NotDetected); Coronavirus NL63 PCR Not Detected (NotDetected); Coronavirus OC43PCR Not Detected (NotDetected); Human Metapneumovirus PCR Not Detected (NotDetected); Influenza A PCR Not Detected (NotDetected); Influenza B PCR Not Detected (NotDetected); Mycoplasma pneumoniae PCR Not Detected (NotDetected); Parainfluenza Virus 1 PCR Not Detected (NotDetected); Parainfluenza Virus 2 PCR Not Detected (NotDetected); Parainfluenza Virus 3 PCR Not Detected (NotDetected); Parainfluenza Virus 4 PCR Not Detected (NotDetected); Respiratory Syncytial VirusPCR Not Detected (NotDetected); Rhinovirus/Enterovirus PCR DETECTED (NotDetected)
[2024-06-29] MEDS: traMADol HCL 50 MG TABLET PO STA (09:48)
--- NOTE | 2024-06-29 09:56 | History & Physical Report ---
Date of Service June 29, 2024 Assessment & Plan (1) History of heart artery stent: (2) Coronary artery disease: (3) Mood disorder: (4) Atypical chest pain: (5) CHF (congestive heart failure): (6) DM2 (diabetes mellitus, type 2): (7) Depression with anxiety: Plan Assessment and plan Central/retrosternal CP Hx PCI x 2 with stenting 04/2024 & 06/16/2024 EKG with no acute changes, troponin flat at [id number] Cardiology consulted, no improvement with nitro/aspirin Tramadol ordered x 1, continue Plavix/aspirin Repeat echo ordered, telemetry monitoring Rhinovirus: Asymptomatic, symptomatic treatment as needed Hx ESRD on dialysis M/W/F Reports noncompliance, left session early on 06/26 Reports some shortness of breath, likely secondary to fluid overload Due for dialysis today 06/29, symptoms will likely improve after Hx CHFEF 35-40% Continue metoprolol Hx asthma: Continue home inhalers Hx depression with anxiety Hx bipolar disorder Continue lorazepam/mirtazapine/Wellbutrin Hx [id number]: Last A1c on 03/2024 5.6 A total of 60 minutes was spent on chart review/reviewing diagnostic studies/discussion with consultants/facilitating plan of care Full code DVT prophylaxis: SCDs, hold off on AC with recent rectal bleeding History of Present Illness Chief Complaint: Chest pain Primary Care Provider: Adolph Aldridge MD Ms. Alexandra Arguello is a 38y/o F with PMHx of diet-controlled DM type II, ESRD on hemodialysis, history of acute thrombosis of brachiocephalic vein, HTN, cardiomegaly, GERD, restless leg syndrome, history of chest pains, history of syncope and collapse, history of migraine, history of anemia [baseline Hgb ~9- 11], history of transplant rejection, history of depression with anxiety, bipolar disorder who presents to the ED on 07/19 with complaints of chest pain. The patient does have a significant history of CAD with recent PCI in April and most recently 06/16 with stenting to LAD. The patient reports that her chest pain started at 12 AM last night. She called the ambulance and reports substernal chest pain that is been constant. It does not worsen with movement. The patient received aspirin and nitroglycerin en route to the hospital but the patient denies any change in her pain. She reports the pain is an 8/10. She denies any recent respiratory symptoms. She denies any nausea or vomiting or abdominal pain. She does report some intermittent shortness of breath but she is due for dialysis today and left her dialysis session early on Saturday. Patient denies any fever/chills. EKG did not show any acute changes On arrival to the ED labs remarkable for hemoglobin 9.1, platelets 119, anion gap 12, BUN 49, creatinine 8.39, glucose 127, troponin 53, 54this is around her baseline troponin with renal disease Respiratory panel + rhinovirus Chest x-ray showed moderate cardiomegaly, mild prominence of the bronchovascular markings, may be seen in lung congestion, supraspinatus calcific tendinopathy The patient will be admitted for further chest pain workup. Please see below for recent hospitalizations She was recently admitted 04/29/24-04/30/24 for evaluation of chest pain. And once more on 05/05-05/10 where she underwent underwent LHC on 05/07 with placement of stent in rPDA. Patient also with anemia, hgb down to 7.5 prompting transfusion of 1 UPRBC on 05/06. Patient with robust response to unit administered. GI following and notes that anemia warrants further investigation, however, deferred as cardiac issues addressed. Patient presented to ED on 05/15 for bleeding, but then once more 05/20 for the same. Patient unable to make it to [place] for CRS. Patient also with OUTSOLE CASER of LAD and consistent chest pain during HD. Patient with hgb 7.0 with transfusion goal of 8.0 Allergies Allergy/AdvReac Type Severity Reaction Status Date / Time cefaclor Allergy Intermediate Rash Verified 06/25/24 10:45 Cephalosporins Allergy Intermediate Rash Verified 06/25/24 10:45 amoxicillin AdvReac Intermediate VOMITING Verified 06/25/24 10:45 clavulanic acid AdvReac Intermediate VOMITING Verified 06/25/24 10:45 Home Medications Medication Instructions Recorded Confirmed Type albuterol sulfate 2.5 mg/3 mL 2.5 mg inhalation Q4H PRN 06/08/23 06/29/24 History (0.083 %) solution for nebulization Shortness Of Breath Or Wheezing albuterol sulfate 90 mcg/actuation 2 puff inhalation Q6H PRN 06/08/23 06/29/24 History aerosol inhaler Shortness Of Breath Or Wheezing carbamazepine 200 mg tablet 200 mg PO AMPM 06/08/23 06/29/24 History hydroxyzine HCl 25 mg tablet 25 mg PO Q6H PRN Anxiety 06/08/23 06/29/24 History lorazepam 0.5 mg tablet 0.5 mg PO Q8 PRN Anxiety 06/08/23 06/29/24 History mometasone-formoterol HFA 200 2 puff inhalation BID 06/08/23 06/29/24 History mcg-5 mcg/actuation aerosol inhaler (Dulera) vitamin B complex-vitamin C-folic 1 tab PO DAILY 06/08/23 06/29/24 History acid 0.8 mg tablet (Renal-Rika) benzonatate 100 mg capsule 200 mg PO TID PRN Cough 08/29/23 06/29/24 History calcium acetate(phosphat bind) 667 2,001 mg PO UD 08/29/23 06/29/24 History mg capsule cinacalcet 90 mg tablet 90 mg PO QDD 08/29/23 06/29/24 History medroxyprogesterone 150 mg/mL 150 mg IM UD 08/29/23 06/29/24 History intramuscular suspension (Depo-Provera) hydrocortisone 1 %-pramoxine 1 % 1 applic DE QID PRN itching #10 04/11/24 06/29/24 Rx rectal foam (Proctofoam HC) grams lidocaine 5 % topical ointment 1 applic topical QID PRN pain #30 04/11/24 06/29/24 Rx grams bupropion HCl 150 mg 24 hr tablet, 150 mg PO QAM 04/17/24 06/29/24 History extended release mirtazapine 7.5 mg tablet 7.5 mg PO HS 04/17/24 06/29/24 History varenicline 0.5 mg tablet 0.5 mg PO DAILY #30 tabs 04/30/24 06/29/24 Rx aspirin 81 mg tablet,delayed 81 mg PO QAM #30 tabs 05/09/24 06/29/24 Rx release clopidogrel 75 mg tablet 75 mg PO QAM #30 tabs 05/09/24 06/29/24 Rx metoprolol succinate 25 mg 25 mg PO BID #60 tabs 05/09/24 06/29/24 Rx tablet,extended release 24 hr rosuvastatin 20 mg tablet 20 mg PO QAM #30 tabs 05/09/24 06/29/24 Rx gabapentin 100 mg capsule 200 mg (2 x 100 mg) PO TID #180 05/10/24 06/29/24 Rx caps pantoprazole 40 mg tablet,delayed 40 mg PO BID #60 tabs 05/10/24 06/29/24 Rx release Past Med/Surg History Problem List Rhinovirus infection Ischemic cardiomyopathy S/P right coronary artery (RCA) stent placement Status post insertion of drug-eluting stent into left anterior descending (LAD) artery History of heart artery stent (Acute) Coronary artery disease (Acute) ESRD (end stage renal disease) on dialysis (Acute) Substernal chest pain (Acute) Atypical chest pain (Acute) Anemia (Acute) Atypical chest pain (Acute) Abnormal laboratory test (Acute) Coronary artery disease due to calcified coronary lesion Dialysis complication (Acute) Syncope (Acute) Acute hyperkalemia (Acute) Symptomatic anemia (Acute) Episode of syncope Rectal bleeding Chest pain (Acute) ESRD on dialysis (Acute) Acute hyperkalemia (Acute) Elevated troponin (Acute) Chest pain not due to acute coronary syndrome (Acute) Bleeding external hemorrhoids (Acute) Non-compliance (Acute) Fluid overload (Acute) Uremia (Acute) Anemia (Acute) Depression (Acute) Weakness (Acute) Sleep deprivation (Acute) Hallucinations (Acute) Anemia (Acute) Dialysis patient (Acute) Medical non-compliance (Acute) Acute uremia (Acute) Shortness of breath (Acute) Elevated troponin (Acute) Acute hyperkalemia (Acute) SOB (shortness of breath) (Acute) SOB (shortness of breath) (Acute) CHF (congestive heart failure) (Acute) Acute uremia (Acute) Somnolence (Acute) Medical non-compliance (Acute) Elevated troponin (Acute) Dialysis patient (Acute) Renal failure (Acute) Hyperkalemia (Acute) Thrombocytopenia COVID-19 (Acute) Renal osteodystrophy Anemia in ESRD (end-stage renal disease) ESRD (end stage renal disease) on dialysis (Acute) DM2 (diabetes mellitus, type 2) (Acute) Anxiety Depression Major depressive disorder, recurrent, in partial remission Depression with anxiety Anemia of chronic disease Status post fall last fall November 2022 > nasal fx / knee pain, no surgery for either injury > resolved per pt report Prolonged QT interval (Acute) no cardio HTN (hypertension) (Acute) Anemia due to end stage renal disease (Acute) FSGS (focal segmental glomerulosclerosis) (Chronic) DX INITIALLY 2013 (CAUSING ESRD 2012) Medical History Mood disorder Anxiety disorder, unspecified Abnormal chest xray Elevated lactic acid level Transaminitis Pneumonia Metabolic encephalopathy Acute non-ST elevation myocardial infarction (NSTEMI) Pulmonary edema Acute hyperkalemia Acute alteration in mental status Renal failure (ARF), acute on chronic Encephalopathy Facial fracture GI bleed ESRD (end stage renal disease) on dialysis Symptomatic anemia Tobacco abuse DVT prophylaxis Fistula right arm (currently being used) and left arm Dialysis patient SATURDAY/SAT/SATURDAY AT [facility] GERD (gastroesophageal reflux disease) Bipolar disorder Restless leg syndrome Peripheral neuropathy Asthma rare res inh use History of abnormal cervical Papanicolaou smear Elevated troponin Acute electrocardiogram changes Surgical History H/O eye surgery LASER SURGERY LEFT History of surgery left arm d/t clot in arm from AV fistula use @ [facility] History of surgery (~09/09/20) perm cath > since removed History of colonoscopy Kidney transplant recipient 2013 AT [facility] History of tooth extraction three TOOTH History of cardiac cath 2016 NO STENTS AVF (arteriovenous fistula) bilat upper arms ---currently using right for dialysis Family History Grandmother Hx of CABG Mother Diabetes Father Crohn's disease Grandfather (Maternal) Diabetes Uncle Diabetes Grandmother (Maternal) Family history of reaction to anesthesia difficulty waking with colonoscopy Social History Smoking Status: Former smoker Tobacco Type: Cigarettes Cigarettes Per Day: 20; Smoking End Date: 3 months ago; Second Hand Exposure: Yes (on occasion); Do You Dip or Chew Tobacco: No; Tobacco Cessation Education Requested by Patient: No Hx Alcohol Use: Yes Alcohol type: hard liquor Alcohol Intake Frequency Comment: q3 months Hx Substance Use: No Preferred Language: [place] Communication Ability: Effective Provider Scribe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 Beliefs That Will Affect Care: None marital status: Single Current Living Situation: Family Current Living Situation Comment: grandparents How many Children do You have: 3 Other Information That Helps Us Care for You: No Feels Safe at Home: Yes Safety Concerns: Feels Safe At This Time Assistive Devices: Glasses Review of Systems Review of Systems: All systems reviewed & are unremarkable except as noted in HPI & below Physical Exam Constitutional: WD/WN, vitals as above Eyes: PERRL, conjunctivae normal, anicteric sclerae ENMT: external ear and nose normal, oropharynx normal Neck: trachea midline, no thyromegaly Respiratory: + labored breathing; does not use access ory muscles Cardiovascular: RRR, no murmur, no edema Gastrointestinal (Abdomen): normal bowel sounds, soft, nontender, no hepatosplenomegaly Percussion/Palpation: abdomen nontender and no guarding Musculoskeletal: no cyanosis or clubbing, extremities motor strength 5/5 Lymphatic: no cervical or axillary lymphadenopathy Results & Data Results & Data Vital Signs (Past 12 Hours) Vital Signs Temp Pulse Pulse Resp BP BP Pulse Ox 06/29/24 07:33 91 H 18 124/71 96 06/29/24 06:30 92 H 16 108/69 96 06/29/24 05:23 98 06/29/24 05:22 98 06/29/24 05:20 91 H 06/29/24 05:20 06/29/24 05:11 36.5 C 93 H 18 129/80 98 O2 Del Method 06/29/24 07:33 06/29/24 06:30 Room Air 06/29/24 05:23 Room Air 06/29/24 05:22 Room Air 06/29/24 05:20 06/29/24 05:20 Room Air 06/29/24 05:11 Room Air Diagnostic Findings Laboratory Results WBC 5.52 K/ul (4.8-10.8) 06/29/24 05:56 RBC 2.79 M/uL (4.20-5.40) L 06/29/24 05:56 Hgb 9.1 g/dl (12.0-16.0) L 06/29/24 05:56 Hct 28.7 % (37.0-47.0) L 06/29/24 05:56 MCV 102.9 fL (80.0-100.0) H 06/29/24 05:56 MCH 32.6 pg (25.0-34.0) 06/29/24 05:56 MCHC 31.7 g/dL (32.0-36.0) L 06/29/24 05:56 RDW Std Deviation 66.7 fL (36.4-46.3) H 06/29/24 05:56 RDW Coeff of Laith 18.5 % (11.5-14.5) H 06/29/24 05:56 Plt Count 119 K/uL (130-400) L 06/29/24 05:56 MPV 9.7 fL (9.4-12.4) 06/29/24 05:56 Immature Gran % (Auto) 0.4 % 06/29/24 05:56 Neut % (Auto) 79.5 % 06/29/24 05:56 Lymph % (Auto) 8.3 % 06/29/24 05:56 [place] % (Auto) 9.6 % 06/29/24 05:56 Eos % (Auto) 1.8 % 06/29/24 05:56 Baso % (Auto) 0.4 % 06/29/24 05:56 Neut # (Auto) 4.39 K/uL (1.40-6.50) 06/29/24 05:56 Lymph # (Auto) 0.46 K/uL (1.20-3.40) L 06/29/24 05:56 [place] # (Auto) 0.53 K/uL (0.11-0.59) 06/29/24 05:56 Eos # (Auto) 0.10 K/uL (0.00-0.50) 06/29/24 05:56 Baso # (Auto) 0.02 K/uL (0.00-0.20) 06/29/24 05:56 Immature Gran # (Auto) 0.02 K/uL (0.01-0.20) 06/29/24 05:56 PT 11.2 Seconds (9.0-12.0) 06/29/24 05:56 INR 1.0 (0.9-1.1) 06/29/24 05:56 Sodium 138 mmol/L (136-145) 06/29/24 05:56 Potassium 4.9 mmol/L (3.5-5.1) 06/29/24 05:56 Chloride 94 mmol/L (98-107) L 06/29/24 05:56 Carbon Dioxide 32 mmol/L (21-32) 06/29/24 05:56 Anion Gap 12 (3-11) H 06/29/24 05:56 BUN 49 mg/dl (6-23) H 06/29/24 05:56 Creatinine 8.39 mg/dl (0.6-1.2) H* 06/29/24 05:56 Est Cr Clr Drug Dosing 10.2 ml/min 06/29/24 05:56 eGFR 5.76 06/29/24 05:56 BUN/Creatinine Ratio 5.8 (10-20) L 06/29/24 05:56 Glucose 127 mg/dl (70-99(Fasting)) H 06/29/24 05:56 Calcium 9.8 mg/dl (8.6-10.3) 06/29/24 05:56 Phosphorus 5.9 mg/dl (2.5-4.9) H 06/29/24 05:56 Magnesium 2.4 mg/dl (1.7-2.4) 06/29/24 05:56 Total Bilirubin 0.7 mg/dl (0.2-1.0) 06/29/24 05:56 AST 18 U/L (13-39) 06/29/24 05:56 ALT 11 U/L (7-52) 06/29/24 05:56 Alkaline Phosphatase 116 U/L (34-104) H 06/29/24 05:56 Troponin I High Sens 54.3 pg/ml (0-14) H* 06/29/24 07:45 Total Protein 6.5 gm/dl (6.0-8.3) 06/29/24 05:56 Albumin 4.1 gm/dl (3.4-5.0) 06/29/24 05:56 Globulin 2.4 gm/dl (2.5-4.0) L 06/29/24 05:56 Albumin/Globulin Ratio 1.7 (0.9-2) 06/29/24 05:56 Lipase 18 U/L (11-82) 06/29/24 05:56 Adenovirus (PCR) Not Detected (NotDetected) 06/29/24 07:00 B. pertussis DNA (PCR) Not Detected (NotDetected) 06/29/24 07:00 B.parapertussis DNA PCR Not Detected (NotDetected) 06/29/24 07:00 C. pneumoniae DNA (PCR) Not Detected (NotDetected) 06/29/24 07:00 Coronavirus OC43 (PCR) Not Detected (NotDetected) 06/29/24 07:00 Coronavirus HKU1 (PCR) Not Detected (NotDetected) 06/29/24 07:00 Coronavirus 229E (PCR) Not Detected (NotDetected) 06/29/24 07:00 SARS-CoV-2 (PCR) Not Detected (NotDetected) 06/29/24 07:00 Coronavirus NL63 (PCR) Not Detected (NotDetected) 06/29/24 07:00 Human Metapneumovir PCR Not Detected (NotDetected) 06/29/24 07:00 Influenza Type A (PCR) Not Detected (NotDetected) 06/29/24 07:00 Influenza Type B (PCR) Not Detected (NotDetected) 06/29/24 07:00 M. pneumoniae (PCR) Not Detected (NotDetected) 06/29/24 07:00 Parainfluenza 1 (PCR) Not Detected (NotDetected) 06/29/24 07:00 Parainfluenza 2 (PCR) Not Detected (NotDetected) 06/29/24 07:00 Parainfluenza 3 (PCR) Not Detected (NotDetected) 06/29/24 07:00 Parainfluenza 4 (PCR) Not Detected (NotDetected) 06/29/24 07:00 RSV (PCR) Not Detected (NotDetected) 06/29/24 07:00 Entero/Rhino (PCR) DETECTED (NotDetected) A 06/29/24 07:00 Impressions Chest X-Ray 06/29/24 05:09 EXAM: XR chest 1V portable CLINICAL HISTORY: chest pain jmf TECHNIQUE: X-ray image of the chest is obtained in AP projection. COMPARISON: 11/26/2018. FINDINGS: Pulmonary Parenchyma: Mild prominence of the bronchovascular markings, a nonspecific finding, may be seen in the lung congestion. No evidence of consolidation, collapse, or focal opacities. No pulmonary nodules are identified. No evidence of pleural effusion or pleural thickening. Heart and Mediastinum: Cardiac silhouette is enlarged in size. No mediastinal widening or masses. No hilar or mediastinal lymphadenopathy. Bony Thorax: Bony thorax appears intact without fractures or deformities. Vascular stents are noted in the region of the right subclavian vessel and another stent is noted in the mediastinum above the level of rk. These were not seen previously. Incidental note made of dense globular calcification lateral to the humeral head along the course of the supraspinatus tendon. Soft Tissues: Soft tissues overlying the chest wall are unremarkable. IMPRESSION: 1. Moderate cardiomegaly, redemonstrated. 2. Mild prominence of the bronchovascular markings on current x ray, a nonspecific finding, may be seen in the lung congestion. 3. Supraspinatus calcific tendinopathy, not seen previously. Suggest clinical correlation. Electronically signed by Betty Faust 06-29-2024 06:35 AM Supervising Physician Co-Signing Physician Notes 38-year-old lady with PMH of T2DM, ESRD on hemodialysis/noncompliance, acute thrombosis of brachiocephalic vein, HTN, cardiomegaly, GERD, RLS, chest pain, syncope and collapse, migraine, anemia, depression with anxiety, bipolar disorder presented to the ED with complaint of chest pain since last night, started at rest, central, no radiation, constant, sharp, associated with some shortness of breath with activity. Troponin trends flat, patient does have chronic elevation in troponin. EKG with no acute ST or T changes. Respiratory viral panel positive for rhinovirus. Trend troponin, echo, cardiology consult, telemetry monitoring. Nephrology consult for hemodialysis support, Supportive management for rhinovirus URTI. On exam: GENERAL: Alert and oriented x3. NAD, on RA. HEENT: No pallor, no icterus. Pupils equal, round and reactive to light. Oral mucosa moist. NECK: No JVD, no neck masses. HEART: S1 and S2 heard. Regular rate and rhythm. No murmur, no gallop. RESPIRATORY SYSTEM: Normal AP diameter. No accessory muscle use. No wheezing, no crackles. ABDOMEN: Soft, bowel sounds present, nontender, no distention. CENTRAL NERVOUS SYSTEM: No facial droop. Speech is clear. Obeys simple commands. Moves extremities. EXTREMITIES: No edema, no erythema seen. AV fistual x UE. I have seen and examined the patient and have discussed the case with the provider above. I agree with the assessment and plan as stated. time spent: 30 min (5) CHF (congestive heart failure) Heart failure chronicity: acute Heart failure type: unspecified Qualified Code(s): I50.9 - Heart failure, unspecified
--- NOTE | 2024-06-29 10:12 | Nephrology Consultation ---
Date of Consultation June 29, 2024 Assessment & Plan (1) ESRD (end stage renal disease) on dialysis: on HD MWF via AVF; no recent missed txs > orders in for today routine HD treatment > runs 4h w/ 15 gg R AVF; 450/500; 2/2.5/38/138; 2K/1K heparin >her OP TW is 80 kg but not hitting this past several txs >> TW for today 81 kg plan next HD on 07/01 or as clinical needs dictate (2) Anemia: have been trying to keep her hgb >8 to help manage angina; however after recent LAD stent last month considered this no longer necessary; will monitor; did just give her pRBC last week x 1 unit as OP -cont EMILY on HD and iron load; t sat 06/22 > 17 >venofer 200 mg IV x 4 more doses; 20K EMILY (3) Coronary artery disease: chronically elevated troponin > lowest it's been all year for her; on RA; chest pain not behaving like typical angina; ECG unchanged; no arrhythmias reported; reviewed case w/ cardiology >> will dialyze History of Present Illness Reason for Consultation: ESRD on dialysis Requesting Physician: Dr Jackson Attending Physician: Dr Jackson History of Present Illness 38 y/o F whom I'm asked to see for dialysis needs was admitted just now after presenting with unremitting chest pain since midnight. Chest pain is 8/10, does not improve w/ morphine, NTG, or rest; it is central/retrosternal and non radiating. PMH includes 05/07/24 L heart cath w/ urgent distal R coronary artery stent and severe multivessel coronary disease on aspirin and plavix, also s/p LAD stent 05/2024; TTE w/ HF/ hypokinesis (EF 35%); hx large bleeding hemorrhoids, DM2, HTN, GERD, hx of failed renal transplant, bipolar disorder/anxiety, restless leg syndrome; hx of acute thrombosis of brachiocephalic vein, s/p recent pelvic fracture (second one / likely related to renal osteodystrophy) causing her pain and somewhat limiting ambulation. She is frequently nonadherent to OP treatments d/t uncontrolled anxiety and/or other psychosocial issues. no f/c or rash. has felt poorly all weekend w/ minimal po intake; no N or vomiting; some sore throat and sinus drainage; stable chronic diarrhea. as above chest pain; no palpitations. no more exertional dyspnea than baseline. no missed treatments for past 5 txs. no presyncopal sx. Allergies Allergy/AdvReac Type Severity Reaction Status Date / Time cefaclor Allergy Intermediate Rash Verified 06/25/24 10:45 Cephalosporins Allergy Intermediate Rash Verified 06/25/24 10:45 amoxicillin AdvReac Intermediate VOMITING Verified 06/25/24 10:45 clavulanic acid AdvReac Intermediate VOMITING Verified 06/25/24 10:45 Home Medications Medication Instructions Recorded Confirmed Type albuterol sulfate 2.5 mg/3 mL 2.5 mg inhalation Q4H PRN 06/08/23 06/29/24 History (0.083 %) solution for nebulization Shortness Of Breath Or Wheezing albuterol sulfate 90 mcg/actuation 2 puff inhalation Q6H PRN 06/08/23 06/29/24 History aerosol inhaler Shortness Of Breath Or Wheezing carbamazepine 200 mg tablet 200 mg PO AMPM 06/08/23 06/29/24 History hydroxyzine HCl 25 mg tablet 25 mg PO Q6H PRN Anxiety 06/08/23 06/29/24 History lorazepam 0.5 mg tablet 0.5 mg PO Q8 PRN Anxiety 06/08/23 06/29/24 History mometasone-formoterol HFA 200 2 puff inhalation BID 06/08/23 06/29/24 History mcg-5 mcg/actuation aerosol inhaler (Dulera) vitamin B complex-vitamin C-folic 1 tab PO DAILY 06/08/23 06/29/24 History acid 0.8 mg tablet (Renal-Rika) benzonatate 100 mg capsule 200 mg PO TID PRN Cough 08/29/23 06/29/24 History calcium acetate(phosphat bind) 667 2,001 mg PO UD 08/29/23 06/29/24 History mg capsule cinacalcet 90 mg tablet 90 mg PO QDD 08/29/23 06/29/24 History medroxyprogesterone 150 mg/mL 150 mg IM UD 08/29/23 06/29/24 History intramuscular suspension (Depo-Provera) hydrocortisone 1 %-pramoxine 1 % 1 applic LA QID PRN itching #10 04/11/24 06/29/24 Rx rectal foam (Proctofoam HC) grams lidocaine 5 % topical ointment 1 applic topical QID PRN pain #30 04/11/24 06/29/24 Rx grams bupropion HCl 150 mg 24 hr tablet, 150 mg PO QAM 04/17/24 06/29/24 History extended release mirtazapine 7.5 mg tablet 7.5 mg PO HS 04/17/24 06/29/24 History varenicline 0.5 mg tablet 0.5 mg PO DAILY #30 tabs 04/30/24 06/29/24 Rx aspirin 81 mg tablet,delayed 81 mg PO QAM #30 tabs 05/09/24 06/29/24 Rx release clopidogrel 75 mg tablet 75 mg PO QAM #30 tabs 05/09/24 06/29/24 Rx metoprolol succinate 25 mg 25 mg PO BID #60 tabs 05/09/24 06/29/24 Rx tablet,extended release 24 hr rosuvastatin 20 mg tablet 20 mg PO QAM #30 tabs 05/09/24 06/29/24 Rx gabapentin 100 mg capsule 200 mg (2 x 100 mg) PO TID #180 05/10/24 06/29/24 Rx caps pantoprazole 40 mg tablet,delayed 40 mg PO BID #60 tabs 05/10/24 06/29/24 Rx release Patient History Medical History Mood disorder Anxiety disorder, unspecified Abnormal chest xray Elevated lactic acid level Transaminitis Pneumonia Metabolic encephalopathy Acute non-ST elevation myocardial infarction (NSTEMI) Pulmonary edema Acute hyperkalemia Acute alteration in mental status Renal failure (ARF), acute on chronic Encephalopathy Facial fracture GI bleed ESRD (end stage renal disease) on dialysis Symptomatic anemia Tobacco abuse DVT prophylaxis Fistula right arm (currently being used) and left arm Dialysis patient SATURDAY/SAT/SATURDAY AT [facility] GERD (gastroesophageal reflux disease) Bipolar disorder Restless leg syndrome Peripheral neuropathy Asthma rare res inh use History of abnormal cervical Papanicolaou smear Elevated troponin Acute electrocardiogram changes Surgical History H/O eye surgery LASER SURGERY LEFT History of surgery left arm d/t clot in arm from AV fistula use @ [facility] History of surgery (~09/09/20) perm cath > since removed History of colonoscopy Kidney transplant recipient 2013 AT [facility] History of tooth extraction three TOOTH History of cardiac cath 2016 NO STENTS AVF (arteriovenous fistula) bilat upper arms ---currently using right for dialysis Family History Grandmother Hx of CABG Mother Diabetes Father Crohn's disease Grandfather (Maternal) Diabetes Uncle Diabetes Grandmother (Maternal) Family history of reaction to anesthesia difficulty waking with colonoscopy Social History Smoking Status: Former smoker Tobacco Type: Cigarettes Cigarettes Per Day: 20; Smoking End Date: 3 months ago; Second Hand Exposure: Yes (on occasion); Do You Dip or Chew Tobacco: No; Tobacco Cessation Education Requested by Patient: No Hx Alcohol Use: Yes Alcohol type: hard liquor Alcohol Intake Frequency Comment: q3 months Hx Substance Use: No Preferred Language: Persian Communication Ability: Effective Screen Printer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 Beliefs That Will Affect Care: None marital status: Single Current Living Situation: Family Current Living Situation Comment: grandparents How many Children do You have: 3 Other Information That Helps Us Care for You: No Feels Safe at Home: Yes Safety Concerns: Feels Safe At This Time Assistive Devices: Glasses Review of Systems 2 Review of Systems: All systems reviewed & are unremarkable except as noted in HPI & below Physical Exam 2 Constitutional: well developed, well nourished and cooperative (on RA); no acute distress Eyes: EOM intact bilaterally ENMT: Mouth: + dry oral mucous membranes (hoarse w/ sinus congestion voice) Respiratory: normal respiratory effort Auscultation: + diminished lung sounds Cardiovascular: Rate/Rhythm: regular rate and regular rhythm Extremities: + AV fistula; no edema Gastrointestinal (Abdomen): Inspection/Auscultation: normal bowel sounds P ercussion/Palpation: abdomen soft; abdomen nontender Musculoskeletal: Extremities: strength 5/5 throughout Skin: no rashes, warm and dry Neurologic: sandy, fluent speech, no tremor Results & Data Vital Signs (Past 12 Hours) Vital Signs Temp Pulse Pulse Resp BP BP Pulse Ox 06/29/24 09:45 85 18 109/83 99 06/29/24 07:33 91 H 18 124/71 96 06/29/24 06:30 92 H 16 108/69 96 06/29/24 05:23 98 06/29/24 05:22 98 06/29/24 05:20 91 H 06/29/24 05:20 06/29/24 05:11 36.5 C 93 H 18 129/80 98 O2 Del Method 06/29/24 09:45 06/29/24 07:33 06/29/24 06:30 Room Air 06/29/24 05:23 Room Air 06/29/24 05:22 Room Air 06/29/24 05:20 06/29/24 05:20 Room Air 06/29/24 05:11 Room Air Laboratory Results 06/29/24 05:56 06/29/24 05:56
[2024-06-29] MEDS ORDERED: ALBUTEROL 0.083% NEBU SOLN 3 ML VIAL INH PRN (10:37)
--- NOTE | 2024-06-29 12:51 | Cardiology Consultation ---
Date of Consultation June 29, 2024 Assessment & Plan (1) Atypical chest pain: (2) Status post insertion of drug-eluting stent into left anterior descending (LAD) artery: (3) S/P right coronary artery (RCA) stent placement: (4) ESRD (end stage renal disease) on dialysis: (5) Anemia: (6) Ischemic cardiomyopathy: (7) Rhinovirus infection: Plan 38-year-old female with complex cardiovascular history status post drug-eluting stent to the right coronary artery and LAD as noted above presented to the [facility] emergency department with acute onset of chest discomfort beginning overnight. High-sensitivity troponin mildly elevated, however, flat and lower than most recent assessment. No ST elevation suggest acute stent thrombosis. 2D echocardiogram pending. Recommend continue dual antiplatelet therapy, beta pool, and statin. Patient will proceed with dialysis treatment today which(Saturday HD ended prior to completion due to URI symptoms). Currently positive for rhinovirus, also may be contributing to symptoms. High-sensitivity troponin ordered Q6 hours x 2 sets. Further recommendations pending review of echo and ongoing clinical assessment. Thank you for allow me to participate in care of your patient. History of Present Illness Reason for Consultation: CP, recent LAD stent Requesting Physician: Sandra LINDSAY Attending Physician: Juwan Jackson MD History of Present Illness Complex 38-year-old female with history of recent distal RCA ARIEL into the right posterior AV branch 05/07/24, and ARIEL implantation to the LAD 06/09/24 (HAND PRESSER treated at [facility], Dr. Mcgowan, presents to the ER with chest pain. Discomfort began at approximately midnight. Described as a severe pain/pressure, 9/10 in severity. Did not complete dialysis treatment on Saturday due to cold-like symptoms. Lab studies positive for rhinovirus in the ER. Appropriate contact precautions taken. High-sensitivity troponin mildly elevated, however, lower than most recent assessment. No ischemic ECG changes. Currently describes discomfort as 8/10, however appears comfortable. Treated with both Tylenol and tramadol with mild relief. No weight gain, edema, orthopnea, or PND. Scheduled for dialysis treatment today. Compliant with both aspirin and clopidogrel since recent intervention. Offers no other concerns/complaints. Allergies Allergy/AdvReac Type Severity Reaction Status Date / Time cefaclor Allergy Intermediate Rash Verified 06/25/24 10:45 Cephalosporins Allergy Intermediate Rash Verified 06/25/24 10:45 amoxicillin AdvReac Intermediate VOMITING Verified 06/25/24 10:45 clavulanic acid AdvReac Intermediate VOMITING Verified 06/25/24 10:45 Home Medications Medication Instructions Recorded Confirmed Type albuterol sulfate 2.5 mg/3 mL 2.5 mg inhalation Q4H PRN 06/08/23 06/29/24 History (0.083 %) solution for nebulization Shortness Of Breath Or Wheezing albuterol sulfate 90 mcg/actuation 2 puff inhalation Q6H PRN 06/08/23 06/29/24 History aerosol inhaler Shortness Of Breath Or Wheezing carbamazepine 200 mg tablet 200 mg PO AMPM 06/08/23 06/29/24 History hydroxyzine HCl 25 mg tablet 25 mg PO Q6H PRN Anxiety 06/08/23 06/29/24 History lorazepam 0.5 mg tablet 0.5 mg PO Q8 PRN Anxiety 06/08/23 06/29/24 History mometasone-formoterol HFA 200 2 puff inhalation BID 06/08/23 06/29/24 History mcg-5 mcg/actuation aerosol inhaler (Dulera) vitamin B complex-vitamin C-folic 1 tab PO DAILY 06/08/23 06/29/24 History acid 0.8 mg tablet (Renal-Rika) benzonatate 100 mg capsule 200 mg PO TID PRN Cough 08/29/23 06/29/24 History calcium acetate(phosphat bind) 667 2,001 mg PO UD 08/29/23 06/29/24 History mg capsule cinacalcet 90 mg tablet 90 mg PO QDD 08/29/23 06/29/24 History medroxyprogesterone 150 mg/mL 150 mg IM UD 08/29/23 06/29/24 History intramuscular suspension (Depo-Provera) hydrocortisone 1 %-pramoxine 1 % 1 applic MD QID PRN itching #10 04/11/24 06/29/24 Rx rectal foam (Proctofoam HC) grams lidocaine 5 % topical ointment 1 applic topical QID PRN pain #30 04/11/24 06/29/24 Rx grams bupropion HCl 150 mg 24 hr tablet, 150 mg PO QAM 04/17/24 06/29/24 History extended release mirtazapine 7.5 mg tablet 7.5 mg PO HS 04/17/24 06/29/24 History varenicline 0.5 mg tablet 0.5 mg PO DAILY #30 tabs 04/30/24 06/29/24 Rx aspirin 81 mg tablet,delayed 81 mg PO QAM #30 tabs 05/09/24 06/29/24 Rx release clopidogrel 75 mg tablet 75 mg PO QAM #30 tabs 05/09/24 06/29/24 Rx metoprolol succinate 25 mg 25 mg PO BID #60 tabs 05/09/24 06/29/24 Rx tablet,extended release 24 hr rosuvastatin 20 mg tablet 20 mg PO QAM #30 tabs 05/09/24 06/29/24 Rx gabapentin 100 mg capsule 200 mg (2 x 100 mg) PO TID #180 05/10/24 06/29/24 Rx caps pantoprazole 40 mg tablet,delayed 40 mg PO BID #60 tabs 05/10/24 06/29/24 Rx release Patient History Medical History Mood disorder Anxiety disorder, unspecified Abnormal chest xray Elevated lactic acid level Transaminitis Pneumonia Metabolic encephalopathy Acute non-ST elevation myocardial infarction (NSTEMI) Pulmonary edema Acute hyperkalemia Acute alteration in mental status Renal failure (ARF), acute on chronic Encephalopathy Facial fracture GI bleed ESRD (end stage renal disease) on dialysis Symptomatic anemia Tobacco abuse DVT prophylaxis Fistula right arm (currently being used) and left arm Dialysis patient SATURDAY/SAT/SATURDAY AT [facility] GERD (gastroesophageal reflux disease) Bipolar disorder Restless leg syndrome Peripheral neuropathy Asthma rare res inh use History of abnormal cervical Papanicolaou smear Elevated troponin Acute electrocardiogram changes Surgical History H/O eye surgery LASER SURGERY LEFT History of surgery left arm d/t clot in arm from AV fistula use @ [facility] History of surgery (~09/09/20) perm cath > since removed History of colonoscopy Kidney transplant recipient 2013 AT [facility] History of tooth extraction three TOOTH History of cardiac cath 2016 NO STENTS AVF (arteriovenous fistula) bilat upper arms ---currently using right for dialysis Family History Grandmother Hx of CABG Mother Diabetes Father Crohn's disease Grandfather (Maternal) Diabetes Uncle Diabetes Grandmother (Maternal) Family history of reaction to anesthesia difficulty waking with colonoscopy Social History Smoking Status: Former smoker Tobacco Type: Cigarettes Cigarettes Per Day: 20; Smoking End Date: 3 months ago; Second Hand Exposure: Yes (on occasion); Do You Dip or Chew Tobacco: No; Tobacco Cessation Education Requested by Patient: No Hx Alcohol Use: Yes Alcohol type: hard liquor Alcohol Intake Frequency Comment: q3 months Hx Substance Use: No Preferred Language: Romanian Communication Ability: Effective Frog Catcher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 Beliefs That Will Affect Care: None marital status: Single Current Living Situation: Family Current Living Situation Comment: grandparents How many Children do You have: 3 Other Information That Helps Us Care for You: No Feels Safe at Home: Yes Safety Concerns: Feels Safe At This Time Assistive Devices: Glasses Review of Systems Review of Systems: All systems reviewed & are unremarkable except as noted in Subjective Physical Exam Constitutional: well nourished; no acute distress Respiratory: normal respiratory effort; no respiratory distress and no labored breathing Auscultation: no crackles, no rales, no rhonchi and no wheezes Cardiovascular: Rate/Rhythm: regular rate and regular rhythm Heart Sounds: normal S1, normal S2 and + murmur (1/6 [place]) Extremities: no edema Gastrointestinal (Abdomen): Inspection/Auscultation: normal bowel sounds; abdomen not distended Percussion/Palpation: abdomen soft; abdomen nontender, no guarding and abdomen not rigid Neurologic: CN's II-XI intact bilaterally and moves all extremities Results & Data Vital Signs (Past 12 Hours) Vital Signs Temp Pulse Pulse Resp BP BP BP 06/29/24 10:55 36.4 C L 88 18 142/89 H 06/29/24 09:45 85 18 109/83 06/29/24 07:33 91 H 18 124/71 06/29/24 06:30 92 H 16 108/69 06/29/24 05:23 06/29/24 05:22 06/29/24 05:20 91 H 06/29/24 05:20 06/29/24 05:11 36.5 C 93 H 18 129/80 Pulse Ox O2 Del Method 06/29/24 10:55 100 Room Air 06/29/24 09:45 99 06/29/24 07:33 96 06/29/24 06:30 96 Room Air 06/29/24 05:23 98 Room Air 06/29/24 05:22 98 Room Air 06/29/24 05:20 06/29/24 05:20 Room Air 06/29/24 05:11 98 Room Air Laboratory Results Cardiac Enzymes 06/29/24 06/29/24 Range/Units 05:56 07:45 AST 18 (13-39) U/L Troponin I High Sens 53.0 H* 54.3 H* (0-14) pg/ml Coagulation 06/29/24 Range/Units 05:56 PT 11.2 (9.0-12.0) Seconds CBC 06/29/24 Range/Units 05:56 WBC 5.52 (4.8-10.8) K/ul RBC 2.79 L (4.20-5.40) M/uL Hgb 9.1 L (12.0-16.0) g/dl Hct 28.7 L (37.0-47.0) % Plt Count 119 L (130-400) K/uL Neut # (Auto) 4.39 (1.40-6.50) K/uL Lymph # (Auto) 0.46 L (1.20-3.40) K/uL Porter # (Auto) 0.53 (0.11-0.59) K/uL Eos # (Auto) 0.10 (0.00-0.50) K/uL Baso # (Auto) 0.02 (0.00-0.20) K/uL Comprehensive Metabolic Panel 06/29/24 Range/Units 05:56 Sodium 138 (136-145) mmol/L Potassium 4.9 (3.5-5.1) mmol/L Chloride 94 L (98-107) mmol/L Carbon Dioxide 32 (21-32) mmol/L BUN 49 H (6-23) mg/dl Creatinine 8.39 H* (0.6-1.2) mg/dl Glucose 127 H (70-99(Fasting)) mg/dl Calcium 9.8 (8.6-10.3) mg/dl AST 18 (13-39) U/L ALT 11 (7-52) U/L Alkaline Phosphatase 116 H (34-104) U/L Total Protein 6.5 (6.0-8.3) gm/dl Albumin 4.1 (3.4-5.0) gm/dl Intake and Output 06/28/24 06/29/24 06/29/24 22:59 06:59 14:59 Intake Total 100 / 100 Balance 100 / 100 Intake: IV 100 / 100 Acetaminophen 1,000 mg In 100 100 / 100 ml @ 400 mls/hr IV NOW STA Rx#: [id number] Other: Weight 89.3 kg 82.6 kg Weight Measurement [facility] Patient Weight 06/30/24 06:59 Weight 82.6 kg
[2024-06-29] MEDS: LORazepam 0.5 MG TAB PO PRN (12:52)
[2024-06-29] MEDS: hydrOXYzine HCl 25 MG TAB PO PRN (13:19)
--- NOTE | 2024-06-29 15:05 | Electrocardiogram Report ---
Test Reason : Blood Pressure : */* mmHG Vent. Rate : 94 BPM Atrial Rate : 94 BPM P-R Int : 158 ms QRS Dur : 98 ms QT Int : 400 ms P-R-T Axes : 45 -39 37 degrees QTcB Int : 500 ms Normal sinus rhythm Left axis deviation Moderate voltage criteria for LVH, may be normal variant ( R in aVL ) Anterolateral infarct (cited on or before 21-Mar-2018) Prolonged QT Abnormal ECG When compared with ECG of 20-May-2024 03:55, No significant change was found Confirmed by Dash Tejada ([id number]) on 06/29/2024 3:05:31 PM Referred By: Confirmed By: Dash Tejada
[2024-06-29] MEDS: EPOETIN ALFA 20,000 UNITS/ML VIAL IV ONE (16:41)
[2024-06-29] MEDS: IRON SUCROSE 200 MG in SYRINGE 0 ML IV ONE (16:42)
[2024-06-29] MEDS: HEPARIN SOD (PORCINE) 1000 UNIT/ML IV SCH (16:58)
[2024-06-29] MEDS: HEPARIN SOD (PORCINE) 1000 UNIT/ML IV ONE (16:58)
[2024-06-29] MEDS: buPROPion XL 150 MG TABCR PO SCH (17:19)
[2024-06-29] MEDS: CLOPIDOGREL BISULFATE 75 MG TAB PO SCH (17:19)
[2024-06-29] MEDS: METOPROLOL SUCC 25MG EXT REL TAB PO SCH (17:19)
[2024-06-29] MEDS: GABAPENTIN 100 MG CAP PO SCH (17:20)
[2024-06-29] MEDS: carBAMazepine 200 MG TABLET PO SCH (17:20)
[2024-06-29] MEDS: CINACALCET HCL 90 MG TAB PO SCH (17:20)
[2024-06-29] MEDS: METHOCARBAMOL 500 MG TABLET PO PRN (17:57)
--- OUTSIDE RECORDS SUMMARY | 2024-06-29 18:27 | External Medical Summary | Summary of Care ---
Author Name Unknown Organization [facility] Address [address] [place] [address] Phone [phone] Care Team Providers Care Operator Receptionist Name Role Phone Adolph Aldridge MD Primary Care Provider [phone] Encounter Details Date Type Department Care Team (Late st Contact Info) Description 06/25/2024 Result Scan Unspecified Department Leah Nieves MD [address] [place] [facility] [place] [address] <No scans attached> Allergies Active Allergy Reactions Criticality Noted Date Comments Amoxicillin Low 01/27/2021 Other reaction(s): VOMITING Cefaclor Rash Low 11/23/2011 Cephalosporins Rash Low 05/16/1999 documented as of this encounter (statuses as of 06/29/2024) Medications Medication Sig Dispensed Refills Start Date End Date Status Calcium Acetate (Phos Binder) 667 MG Oral Capsule (Phoslo) Take 3 Caps by mouth three times a day with meals. 270 Cap 3 11/03/2020 Active Renal Vitamin 0.8 MG Oral Tablet Take 1 Tablet by mouth daily. 08/10/2020 Active Compressor NebulizerIndication s:Mild intermittent asthma with exacerbation Inhale via nebulizer. 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 24 Tablet 03/14/2022 Active OneTouch Delica Plus [id number] s:DM type 2 with diabetic peripheral neuropathy (HCC),Type 2 diabetes mellitus with hemoglobin A1c goal of less than 7.0% (HCC) use 1 LANCET to TEST BLOOD SUGAR four times a day. DX E11.9 400 Each 3 03/23/2022 Active OneTouch Verio In Vitro Strip (Glucose Blood)Indications:D [...] 08/29/2022 Active LORazepam 0.5 MG Oral Tablet (Ativan)Indications [...] at bedtime. Active Benzonatate 100 MG Oral CapsuleIndications: Chronic cough Take 2 Capsules by mouth 3 times a day as needed for Cough. 30 Capsule 1 12/19/2023 Active Albuterol Sulfate HFA 108 (90 Base) MCG/ACT Inhalation Aerosol SolutionIndications :Chronic cough,Upper respiratory tract infection, unspecified type Inhale 2 Puffs by mouth every 4 hours as needed for Wheezing. 18 g 6 12/24/2023 Active Dexcom G7 SensorIndications:T ype 2 diabetes mellitus with hemoglobin A1c goal of less than 7.0% ([facility]) Use to check sugars continuously. E 11.9 change every 10 days 3 Each 11 01/06/2024 Active hydrOXYzine HCl 25 MG Oral Tablet TAKE 1 TABLET BY MOUTH EVERY 6 HOURS NEEDED FOR ANXIETY 02/12/2024 Active Dexcom G7 Half Backer Device USE DAILY TO CHECK BLOOD SUGARS CONTINUOUSLY (DX CODE E11.9) 01/11/2024 Active Lidocaine 5 % External Ointment Apply [...] Oral Tablet Extended Release 24 Hour (Wellbutrin XL)Indications:Depr ession with anxiety Take 1 Tablet by mouth [...] Active Varenicline Tartrate 1 MG Oral Tablet (Chantix)Indication s:Tobacco use Take 1 tablet by mouth twice daily 60 Tablet 2 06/05/2024 Active documented as of this encounter (statuses as of 06/29/2024) Active Problems Problem Noted Date Diagnosed Date Chronic total occlusion of coronary artery 06/09 S/P primary angioplasty with coronary stent 04/27 Bleeding hemorrhoids 05/21/2024 Coronary artery disease involving mcgrath coronar y artery 05/21/2024 HFrEF (heart failure [...] as of this encounter (statuses as of 06/29/2024) Resolved Problems Problem Noted Date Diagnosed Date Resolved Date Acute blood loss anemia 05/21/2024 09/2 03/2024 Hyperkalemia 05/21/2024 05/23/2024 Admission for dialysis 08/30/202305/23 Food insecurity 02/04/2023 08/08/2023 Overview: Per [facility] Protocol Major depressive disorder with single [...] if early screen is normal. 5. Recommend [facility] ultrasound for anatomy screen at 20 [...] as of this encounter (statuses as of 06/29/2024) Immunizations Name Administration Dates Next Due COVID-19 [...] Care Team (Late st Contact Info) Description 07/14/2024 3:30 PM EST Office Visit Orthopaedics [facility] [address] [facility] [place] [address] Ary Rowe MD [address] [place] [address] 09/01/2024 1:40 PM EST Office Visit Family Practice, [facility] [address] [place] [address] Adolph Aldridge MD [address] [place] [address] 10/19/2024 10:00 AM EST Office Visit Cardiology, [facility] [address] [facility] [place] [address] Farooq Ross DO [address] [facility] [place] [address] 04/01/2025 2:40 PM EDT Telemedicine Neurology [address] [place] [phone] Eros Marks, DO [address] [facility] [place] [address] Scheduled Procedures [...] Cancer Screening 05/12/2023 Pap Smear 05/12/2023 05/12/2020, /04/2018, 09/25/2013, Additional history exists Influenza Vaccine (FLU [...] this encounter Medical Devices Implanted Type Area Beauty Culturist Apprentice Device Identifier Shelf Expiration Date Model / Serial / Lot Stent Protege Gps [id number] - [id number] Implanted:Qty : 1 on 09/29/2020 by Carmelo Ramos MD at [place] [facility] [place] Left: Chest [employer] : VASCULAR [id number] 09/20/2022 [id number] / / [id number] Stent Viab [id number] - [id number] Implanted:Qty : 1 on 04/16/2023 by Carmelo Ramos MD at [place] [facility] [place] Right: Subclavian [employer] [id number] 01/26/2026 [id number] / [id number] / [id number] Stent Synergy Xd Mr [id number] - [id number] Implanted:Qty : 1 on 06/09/2024 by Diamond Mcgowan MD at CARDIAC LABS [facility] [place] [employer] [id number] 01/21/2026 [id number] / / [id number] documented as of this encounter Procedures Procedure Name Priority Date/Time Associated Diagnosis Comments OUTSIDE LAB RESULTS 06/25/2024 documented in this encounter Results * OUTSIDE LAB RESULTS (06/25/2024) 06/25/2024 Leah Nieves MD LABORATORY documented in this encounter Advance Directives * [...] Advance Directives occurred with: Patient Care Teams Operator Receptionist Relationship Specialty Start Date End Date Adolph Aldridge MD [address] [facility] [place] [id number] PCP - General Family Medicine 10/21/18 documented as of this encounter
[2024-06-29] MEDS: MIRTAZAPINE TAB 15 MG TAB PO SCH (21:56)
[2024-06-29] MEDS: PANTOprazole 40 MG TAB PO SCH (21:56)
[2024-06-29] MEDS: NITROGLYCERIN SL 0.4 MG/TAB TAB SL STA (22:25)
[2024-06-29] MEDS: ALBUMIN 25% 12.5 GM/50 ML VIAL IV ONE (22:50)
[2024-06-29] MEDS: traMADol HCL 50 MG TABLET PO PRN (23:00)
[2024-06-29] MEDS: NITROGLYCERIN SL 0.4 MG/TAB TAB ONE (23:24)
[2024-06-30] MEDS: ACETAMINOPHEN 1,000 MG/100 ML VIAL IV STA (06:07)
[2024-06-30 06:36] LABS: Hematocrit (blood only) 28.6 % (37.0-47.0); Hemoglobin 9.1 g/dl (12.0-16.0); Mean Corpuscular Hemoglobin 32.7 pg (25.0-34.0); Mean Corpuscular Hgb Conc 31.8 g/dL (32.0-36.0); Mean Corpuscular Volume 102.9 fL (80.0-100.0); Mean Platelet Volume 10.4 fL (9.4-12.4); Platelet Count 114 K/uL (130-400); RDW Coefficient of Variation 18.5 % (11.5-14.5); RDW Standard Deviation 67.7 fL (36.4-46.3); Red Blood Count 2.78 M/uL (4.20-5.40); White Blood Count 4.57 K/ul (4.8-10.8)
[2024-06-30 06:54] LABS: Albumin Globulin Ratio 1.8 (0.9-2); Albumin Level 4.2 gm/dl (3.4-5.0); BUN Creatinine Ratio 4.7 (10-20); Calcium 10.2 mg/dl (8.6-10.3); Globulin 2.3 gm/dl (2.5-4.0); Potassium 4.8 mmol/L (3.5-5.1); Total Protein 6.5 gm/dl (6.0-8.3)
[2024-06-30 06:57] LABS: Troponin I High Sensitivity 56.7 pg/ml (0-14)
[2024-06-30 07:00] LABS: Partial Thromboplastin Time 28 Seconds (21-31)
[2024-06-30 07:56] VITALS: RESP 18
[2024-06-30] MEDS: ASPIRIN 81 MG ECTAB PO SCH (09:36)
[2024-06-30] MEDS: ROSUVASTATIN CALCIUM 20 MG TAB PO SCH (09:39)
--- NOTE | 2024-06-30 12:30 | Nephrology Progress Note ---
Date of Service June 30, 2024 Assessment & Plan (1) ESRD (end stage renal disease) on dialysis: Plan: on HD MWF via [facility]; no recent missed txs > Had HD treatment yesterday w/ no issues and 3.1 lit UF, Electrolytes are safe. -Next HD Tmrw w/ same prescription. If discharged today she can follow w/ her outpatinet Dialysis tomorrow. (2) Anemia: Plan: have been trying to keep her hgb >8 to help manage angina; however after recent LAD stent last month considered this no longer necessary; will monitor; did just give her pRBC last week x 1 unit as OP -cont EMILY on HD and iron load; t sat 06/22 > 17 >venofer 200 mg IV x 4 more doses; 20K EMILY (3) Coronary artery disease: Plan: chronically elevated troponin > lowest it's been all year for her; on RA; chest pain not behaving like typical angina; ECG unchanged; no arrhythmias reported; reviewed case w/ cardiology >> will dialyze Admission and Anticipated Discharge Date Admission Date: June 29, 2024 Subjective Sitting out bed, Comfortable w/ no SOB but still c/o Chest tightness Review of Systems 2 Review of Systems: All systems reviewed & are unremarkable except as noted in HPI & below Physical Exam 2 Physical Exam: Constitutional: well developed, we ll nourished and c ooperative (on RA) ; no acute distres s Eyes: EOM intact bilater ally ENMT: Mouth: + dry oral mucous membranes ( hoarse w/ sinus co ngestion voice) Respiratory: normal respiratory effort Auscultat ion: + diminished lung sounds Cardiovascular: Rate/Rhythm: regul ar rate and regula r rhythm Extremit ies: + AV fistula; no edema Gastrointestinal ( Abdomen): Inspection/Auscult ation: normal bal l sounds Percussi on/Palpation: abdo men soft; abdomen nontender Musculoskeletal: Extremities: stren gth 5/5 throughout Skin: no rashes, warm an d dry Neurologic: sandy, fluent speec h, no tremor Results & Data Vital Signs (Past 12 Hours) Vital Signs Temp Pulse Pulse Resp BP BP Pulse Ox 06/30/24 11:30 36.7 C 88 18 161/93 H 92 06/30/24 09:45 06/30/24 07:55 37.0 C 88 18 145/80 H 95 06/30/24 05:42 90 16 151/88 H 94 06/30/24 03:18 37.5 C 88 18 158/97 H 96 06/30/24 00:48 91 H O2 Del Method 06/30/24 11:30 Room Air 06/30/24 09:45 Room Air 06/30/24 07:55 Room Air 06/30/24 05:42 Room Air 06/30/24 03:18 Room Air 06/30/24 00:48 Laboratory Results 06/30/24 06:18 06/30/24 06:18 (3) Coronary artery disease Associated angina: unspecified whether angina present Coronary Disease- Associated Artery/Lesion type: unspecified vessel or lesion type [place] vs. transplanted heart: [place] heart Qualified Code(s): I25.10 - Atherosclerotic heart disease of [place] coronary artery without angina pectoris
[2024-06-30] MEDS: METHOCARBAMOL 750 MG TABLET PO PRN (12:31)
[2024-06-30] MEDS: NEPHROCAPS PO SCH (13:02)
--- NOTE | 2024-06-30 14:18 | Electrocardiogram Report ---
Test Reason : Blood Pressure : */* mmHG Vent. Rate : 88 BPM Atrial Rate : 88 BPM P-R Int : 158 ms QRS Dur : 98 ms QT Int : 432 ms P-R-T Axes : 70 -46 61 degrees QTcB Int : 522 ms Normal sinus rhythm Left anterior fascicular block Anterolateral infarct (cited on or before 21-Mar-2018) Prolonged QT Abnormal ECG When compared with ECG of 29-Jun-2024 05:11, Left anterior fascicular block is now Present Confirmed by Dash Tejada ([id number]) on 06/30/2024 2:18:06 PM Referred By: REFERRED SELF Confirmed By: Dash Tejada
--- NOTE | 2024-06-30 14:40 | Cardiology Progress Note ---
Date of Service June 30, 2024 Assessment & Plan (1) Atypical chest pain: (2) Status post insertion of drug-eluting stent into left anterior descending (LAD) artery: (3) S/P right coronary artery (RCA) stent placement: (4) ESRD (end stage renal disease) on dialysis: (5) Anemia: (6) Ischemic cardiomyopathy: (7) Rhinovirus infection: Plan 38-year-old female with complex cardiovascular history status post drug-eluting stent to the right coronary artery and LAD as noted above presents with atypical, constant chest discomfort without evidence of acute coronary syndrome. Pain appears to be noncardiac in origin. ECG without acute changes, echocardiogram unchanged when compared to prior study. Her cardiac enzymes are mildly elevated, however, lower than previous assessment. Recommend continue dual antiplatelet therapy, beta pool, and statin. Stable hemoglobin, no indication for transfusion at this time. Patient may proceed with dialysis as scheduled. Conservative management of acute rhinovirus infection as per internal medicine. Outpatient cardiology follow-up as scheduled. Admission and Anticipated Discharge Date Admission Date: June 29, 2024 Subjective 38-year-old female seen examined the bedside. Appears comfortable at this time. Notes continuous chest discomfort somewhat positional and reproducible with palpation. No orthopnea or PND. Tolerated hemodialysis treatment yesterday. Review of Systems Review of Systems: All systems reviewed & are unremarkable except as noted in Subjective Physical Exam Constitutional: well nourished; no acute distress Respiratory: normal respiratory effort; no respiratory distress and no labored breathing Auscultation: no crackles, no rales, no rhonchi and no wheezes Cardiovascular: Rate/Rhythm: regular rate and regular rhythm Heart Sounds: normal S1, normal S2 and + murmur (1/6 [place]) Extremities: no edema Gastrointestinal (Abdomen): Inspection/Auscultation: normal bowel sounds; abdomen not distended Percussion/Palpation: abdomen soft; abdomen nontender, no guarding and abdomen not rigid Neurologic: CN's II-XI intact bilaterally and moves all extremities Results & Data Vital Signs (Past 12 Hours) Vital Signs Temp Pulse Pulse Resp BP BP Pulse Ox 06/30/24 13:00 89 06/30/24 11:30 36.7 C 88 18 161/93 H 92 06/30/24 09:45 06/30/24 07:55 37.0 C 88 18 145/80 H 95 06/30/24 05:42 90 16 151/88 H 94 06/30/24 05:40 90 06/30/24 03:18 37.5 C 88 18 158/97 H 96 O2 Del Method 06/30/24 13:00 06/30/24 11:30 Room Air 06/30/24 09:45 Room Air 06/30/24 07:55 Room Air 06/30/24 05:42 Room Air 06/30/24 05:40 06/30/24 03:18 Room Air Laboratory Results Cardiac Enzymes 06/29/24 06/29/24 06/30/24 Range/Units 17:36 22:58 06:18 AST 18 (13-39) U/L Troponin I High Sens 52.2 H* 61.7 H* 56.7 H* (0-14) pg/ml Coagulation 06/30/24 Range/Units 06:18 APTT 28 (21-31) Seconds CBC 06/30/24 Range/Units 06:18 WBC 4.57 L (4.8-10.8) K/ul RBC 2.78 L (4.20-5.40) M/uL Hgb 9.1 L (12.0-16.0) g/dl Hct 28.6 L (37.0-47.0) % Plt Count 114 L (130-400) K/uL Comprehensive Metabolic Panel 06/30/24 Range/Units 06:18 Sodium 137 (136-145) mmol/L Potassium 4.8 (3.5-5.1) mmol/L Chloride 94 L (98-107) mmol/L Carbon Dioxide 30 (21-32) mmol/L BUN 26 H D (6-23) mg/dl Creatinine 5.51 H* D (0.6-1.2) mg/dl Glucose 97 (70-99(Fasting)) mg/dl Calcium 10.2 (8.6-10.3) mg/dl AST 18 (13-39) U/L ALT 11 (7-52) U/L Alkaline Phosphatase 111 H (34-104) U/L Total Protein 6.5 (6.0-8.3) gm/dl Albumin 4.2 (3.4-5.0) gm/dl Intake and Output 06/29/24 06/30/24 06/30/24 22:59 06:59 14:59 Intake Total 0 / 210 110 / 210 Balance 0 210 110 / 210 Intake: IV 50 / 150 Albumin 25% 12.5 gm In 50 ml @ 50 / 50 50 mls/hr IV ONE ONE Rx#: [id number] Oral 0 60 60 / 60 Other: Hemodialysis Ultrafiltration 3,100 Amount Other Intake Source NPO NPO # Unmeasured Voids 2 Weight 83 kg Weight Measurement Method Built in [facility]
[2024-06-30 15:35] VITALS: TEMP 98.2; O2SAT 97
--- NOTE | 2024-06-30 15:40 | Discharge Summary ---
Discharge Summary Date of Service June 30, 2024 Ms. Alexandra Arguello is a 38y/o F with PMHx of diet-controlled DM type II, ESRD on hemodialysis, history of acute thrombosis of brachiocephalic vein, HTN, cardiomegaly, GERD, restless leg syndrome, history of chest pains, history of syncope and collapse, history of migraine, history of anemia [baseline Hgb ~9- 11], history of transplant rejection, history of depression with anxiety, bipolar disorder who presents to the ED on 07/19 with complaints of chest pain. The patient does have a significant history of CAD with recent PCI in April and most recently 06/16 with stenting to LAD. The patient reports that her chest pain started at 12 AM last night. She called the ambulance and reports substernal chest pain that is been constant. It does not worsen with movement. The patient received aspirin and nitroglycerin en route to the hospital but the patient denies any change in her pain. She reports the pain is an 8/10. She denies any recent respiratory symptoms. She denies any nausea or vomiting or abdominal pain. She does report some intermittent shortness of breath but she is due for dialysis today and left her dialysis session early on Saturday. Patient denies any fever/chills. EKG did not show any acute changes On arrival to the ED labs remarkable for hemoglobin 9.1, platelets 119, anion gap 12, BUN 49, creatinine 8.39, glucose 127, troponin 53, 54this is around her baseline troponin with renal disease Respiratory panel + rhinovirus Chest x-ray showed moderate cardiomegaly, mild prominence of the bronchovascular markings, may be seen in lung congestion, supraspinatus calcific tendinopathy The patient will be admitted for further chest pain workup. Please see below for recent hospitalizations She was recently admitted 04/29/24-04/30/24 for evaluation of chest pain. And once more on 05/05-05/10 where she underwent underwent LHC on 05/07 with placement of stent in rPDA. Patient also with anemia, hgb down to 7.5 prompting transfusion of 1 UPRBC on 05/06. Patient with robust response to unit administered. GI following and notes that anemia warrants further investigation, however, deferred as cardiac issues addressed. Patient presented to ED on 05/15 for bleeding, but then once more 05/20 for the same. Patient unable to make it to [place] for CRS. 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 Patient with hgb 7.0 with transfusion goal of 8.0 The patient was seen by cardiology this hospitalization. EKG was without acute changes, echocardiogram is unchanged. Her cardiac enzymes are mildly elevated but lower than previous assessment. Cardiology did not recommend any changes. Recommended continuing dual antiplatelet therapy, beta-pool, statin, patient may proceed with dialysis as scheduled and the patient should follow-up with outpatient cardiology as scheduled prior to hospitalization. The patient's lab/vitals are stable. She stable for discharge home today. She will need to follow-up with her PCP within 1 week of discharge. She is due for dialysis on 07/01/2024. Principal Dx & Hospital Course #1 = Principal Diagnosis (1) History of heart artery stent: (2) Coronary artery disease: (3) Mood disorder: (4) Atypical chest pain: (5) CHF (congestive heart failure): (6) DM2 (diabetes mellitus, type 2): (7) Depression with anxiety: Plan Assessment and plan Central/retrosternal CP Hx PCI x 2 with stenting 04/2024 & 06/16/2024 EKG with no acute changes, troponin flat at [id number] Cardiology consulted, no improvement with nitro/aspirin Tramadol ordered x 1, continue Plavix/aspirin Repeat echo ordered, telemetry monitoring Rhinovirus: Asymptomatic, symptomatic treatment as needed Hx ESRD on dialysis M/W/F Reports noncompliance, left session early on 06/26 Reports some shortness of breath, likely secondary to fluid overload Due for dialysis today 06/29, symptoms will likely improve after Hx CHFEF 35-40% Continue metoprolol Hx asthma: Continue home inhalers Hx depression with anxiety Hx bipolar disorder Continue lorazepam/mirtazapine/Wellbutrin Hx [id number]: Last A1c on 03/2024 5.6 A total of 60 minutes was spent on chart review/reviewing diagnostic studies/discussion with consultants/facilitating plan of care Full code DVT prophylaxis: SCDs, hold off on AC with recent rectal bleeding Notes For Next Care Provider Medication Changes From Visit N/A Admission HPI Per Admitting Provider Ms. Alexandra Arguello is a 38y/o F with PMHx of diet-controlled DM type II, ESRD on hemodialysis, history of acute thrombosis of brachiocephalic vein, HTN, cardiomegaly, GERD, restless leg syndrome, history of chest pains, history of syncope and collapse, history of migraine, history of anemia [baseline Hgb ~9- 11], history of transplant rejection, history of depression with anxiety, bipolar disorder who presents to the ED on 07/19 with complaints of chest pain. The patient does have a significant history of CAD with recent PCI in April and most recently 06/16 with stenting to LAD. The patient reports that her chest pain started at 12 AM last night. She called the ambulance and reports substernal chest pain that is been constant. It does not worsen with movement. The patient received aspirin and nitroglycerin en route to the hospital but the patient denies any change in her pain. She reports the pain is an 8/10. She denies any recent respiratory symptoms. She denies any nausea or vomiting or abdominal pain. She does report some intermittent shortness of breath but she is due for dialysis today and left her dialysis session early on Saturday. Patient denies any fever/chills. EKG did not show any acute changes On arrival to the ED labs remarkable for hemoglobin 9.1, platelets 119, anion gap 12, BUN 49, creatinine 8.39, glucose 127, troponin 53, 54this is around her baseline troponin with renal disease Respiratory panel + rhinovirus Chest x-ray showed moderate cardiomegaly, mild prominence of the bronchovascular markings, may be seen in lung congestion, supraspinatus calcific tendinopathy The patient will be admitted for further chest pain workup. Please see below for recent hospitalizations She was recently admitted 04/29/24-04/30/24 for evaluation of chest pain. And once more on 05/05-05/10 where she underwent underwent LHC on 05/07 with placement of stent in rPDA. Patient also with anemia, hgb down to 7.5 prompting transfusion of 1 UPRBC on 05/06. Patient with robust response to unit administered. GI following and notes that anemia warrants further investigation, however, deferred as cardiac issues addressed. Patient presented to ED on 05/15 for bleeding, but then once more 05/20 for the same. Patient unable to make it to [place] for CRS. 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 Patient with hgb 7.0 with transfusion goal of 8.0 Discharge Exam Constitutional WD/WN, vitals as above Eyes PERRL, conjunctivae normal, anicteric sclerae ENMT external ear and nose normal, oropharynx normal Neck trachea midline, no thyromegaly Respiratory + labored breathing; does not use accessory muscles Cardiovascular RRR, no murmur, no edema Gastrointestinal (Abdomen) normal bowel sounds, soft, nontender, no hepatosplenomegaly Percussion/Palpation: abdomen nontender and no guarding Musculoskeletal no cyanosis or clubbing, extremities motor strength 5/5 Lymphatic no cervical or axillary lymphadenopathy Updated Medication List Medication Instructions Recorded Confirmed Type albuterol sulfate 2.5 mg/3 mL 2.5 mg inhalation Q4H PRN 06/08/23 06/29/24 History (0.083 %) solution for nebulization Shortness Of Breath Or Wheezing albuterol sulfate 90 mcg/actuation 2 puff inhalation Q6H PRN 06/08/23 06/29/24 History aerosol inhaler Shortness Of Breath Or Wheezing carbamazepine 200 mg tablet 200 mg PO AMPM 06/08/23 06/29/24 History hydroxyzine HCl 25 mg tablet 25 mg PO Q6H PRN Anxiety 06/08/23 06/29/24 History lorazepam 0.5 mg tablet 0.5 mg PO Q8 PRN Anxiety 06/08/23 06/29/24 History mometasone-formoterol HFA 200 2 puff inhalation BID 06/08/23 06/29/24 History mcg-5 mcg/actuation aerosol inhaler (Dulera) vitamin B complex-vitamin C-folic 1 tab PO DAILY 06/08/23 06/29/24 History acid 0.8 mg tablet (Renal-Rika) benzonatate 100 mg capsule 200 mg PO TID PRN Cough 08/29/23 06/29/24 History calcium acetate(phosphat bind) 667 2,001 mg PO UD 08/29/23 06/29/24 History mg capsule cinacalcet 90 mg tablet 90 mg PO QDD 08/29/23 06/29/24 History medroxyprogesterone 150 mg/mL 150 mg IM UD 08/29/23 06/29/24 History intramuscular suspension (Depo-Provera) hydrocortisone 1 %-pramoxine 1 % 1 applic [place] QID PRN itching #10 04/11/24 06/29/24 Rx rectal foam (Proctofoam HC) grams lidocaine 5 % topical ointment 1 applic topical QID PRN pain #30 04/11/24 06/29/24 Rx grams bupropion HCl 150 mg 24 hr tablet, 150 mg PO QAM 04/17/24 06/29/24 History extended release mirtazapine 7.5 mg tablet 7.5 mg PO HS 04/17/24 06/29/24 History varenicline 0.5 mg tablet 0.5 mg PO DAILY #30 tabs 04/30/24 06/29/24 Rx aspirin 81 mg tablet,delayed 81 mg PO QAM #30 tabs 05/09/24 06/29/24 Rx release clopidogrel 75 mg tablet 75 mg PO QAM #30 tabs 05/09/24 06/29/24 Rx metoprolol succinate 25 mg 25 mg PO BID #60 tabs 05/09/24 06/29/24 Rx tablet,extended release 24 hr rosuvastatin 20 mg tablet 20 mg PO QAM #30 tabs 05/09/24 06/29/24 Rx gabapentin 100 mg capsule 200 mg (2 x 100 mg) PO TID #180 05/10/24 06/29/24 Rx caps pantoprazole 40 mg tablet,delayed 40 mg PO BID #60 tabs 05/10/24 06/29/24 Rx release Hospital Stay Data Consultations 06/29/24 07:25 ED Decision to Admit Stat 06/29/24 07:43 Consult Cardiology Routine 06/29/24 07:48 Consult Nephrology Routine Pending Results Patient Have Any Pending Studies at Discharge: No Discharge Instructions Given to Patient (Per Discharging Provider) Please follow-up with your PCP within 1 week of discharge. Please follow-up with cardiology within a month of discharge. Please continue outpatient dialysis treatments Return back to the ED with worsening symptoms. Total Time Total Time Spent Total Time Spent (In Minutes): 60 Total Time Includes: Examination of the Patient, Discharge Planning, Medication Reconciliation and Communication With Other Providers Supervising Physician Co-Signing Physician Notes 38-year-old lady with PMH of T2DM, ESRD on hemodialysis/noncompliance, acute thrombosis of brachiocephalic vein, HTN, cardiomegaly, GERD, RLS, chest pain, syncope and collapse, migraine, anemia, depression with anxiety, bipolar disorder presented to the ED with complaint of chest pain since last night, started at rest, central, no radiation, constant, sharp, associated with some shortness of breath with activity. Troponin trends flat, patient does have chronic elevation in troponin. EKG with no acute ST or T changes. Respiratory viral panel positive for rhinovirus. ECHO w/ no new findings. Cardiology evaluated, no new recommendation. Stable hemoglobin. Nephrology consult for hemodialysis support, Supportive management for rhinovirus URTI. Patient hemodynamically stable and stable for discharge. Patient to follow-up with PCP and cardiology upon discharge. On exam: GENERAL: Alert and oriented x3. NAD, on RA. HEENT: No pallor, no icterus. Pupils equal, round and reactive to light. Oral mucosa moist. NECK: No JVD, no neck masses. HEART: S1 and S2 heard. Regular rate and rhythm. No murmur, no gallop. RESPIRATORY SYSTEM: Normal AP diameter. No accessory muscle use. No wheezing, no crackles. ABDOMEN: Soft, bowel sounds present, nontender, no distention. CENTRAL NERVOUS SYSTEM: No facial droop. Speech is clear. Obeys simple commands. Moves extremities. EXTREMITIES: No edema, no erythema seen. AV fistual x UE. I have seen and examined the patient and have discussed the case with the provider above. I agree with the assessment and plan as stated. time spent: 20 min
[2024-06-30 16:14] VITALS: BP 151/88; PULSE 88
== END 2024-06-30 17:01 | disposition home or self-care (01) | DRG 313 ==
LOC: ED 05:07 → 2E 07:54

== ENCOUNTER 2024-07-10 03:36 | Inpatient (IN) ==
[2024-07-10 04:35] LABS: Basophils # (auto) 0.01 K/uL (0.00-0.20); Basophils % (auto) 0.2 %; Eosinophils # (auto) 0.06 K/uL (0.00-0.50); Eosinophils % (auto) 1.4 %; Hematocrit (blood only) 30.7 % (37.0-47.0); Hemoglobin 9.8 g/dl (12.0-16.0); Immature Granulocytes # (auto) 0.03 K/uL (0.01-0.20); Immature Granulocytes % (auto) 0.7 %; Lymphocytes # (auto) 0.56 K/uL (1.20-3.40); Lymphocytes % (auto) 12.9 %; Mean Corpuscular Hemoglobin 33.1 pg (25.0-34.0); Mean Corpuscular Hgb Conc 31.9 g/dL (32.0-36.0); Mean Corpuscular Volume 103.7 fL (80.0-100.0); Mean Platelet Volume 9.9 fL (9.4-12.4); Monocytes # (auto) 0.44 K/uL (0.11-0.59); Monocytes % (auto) 10.2 %; Neutrophils # (auto) 3.23 K/uL (1.40-6.50); Neutrophils % (auto) 74.6 %; Platelet Count 121 K/uL (130-400); RDW Coefficient of Variation 17.6 % (11.5-14.5); RDW Standard Deviation 67.3 fL (36.4-46.3); Red Blood Count 2.96 M/uL (4.20-5.40); White Blood Count 4.33 K/ul (4.8-10.8)
[2024-07-10] MEDS: ACETAMINOPHEN 1,000 MG/100 ML VIAL IV STA (04:40)
[2024-07-10] MEDS: PANTOprazole 40 MG/10 ML SYR IV ONE (04:40)
[2024-07-10 05:00] LABS: Prothrombin Time 11.1 Seconds (9.0-12.0)
--- NOTE | 2024-07-10 05:14 | Emergency Department Note ---
Impression & Plan Chest pain ED Provider Note ED Provider Note NAME: NATHALIA DUTTON AGE:38 SEX: Female : 1985 ARRIVES VIA: EMS INFORMANT: Patient ED PROVIDER(s): Taylor Rodarte DO CHIEF COMPLAINT: Chest pain HPI: This is a 38-year-old female who presents to the emergency department due to concern for chest pain. Patient is well-known to the emergency department due to complex medical history and frequent visits. Patient states 2 months ago she underwent placement of 2 additional cardiac stents due to coronary artery disease. Patient states she did quit smoking, and has been taking her medications as prescribed including aspirin and Plavix that she was started on after the stent placement. She denies any recent fevers, chills, or URI symptoms. She denies any recent change in activity. She states she has not missed or skipped any sessions of dialysis as she goes Saturday/Saturday/Saturday. She states that she began having chest pain a little over a week ago. She states that has been pretty steady and does not change with position or exertion. PAST MEDICAL HISTORY:See Below PAST SURGICAL HISTORY:See Below FAMILY HISTORY:See Below SOCIAL HISTORY:See Below HOME MEDICATIONS:See Below ALLERGIES:See Below VITALS:See Below PHYSICAL EXAMINATION: GENERAL: alert, well appearing, well nourished, no distress, non-toxic EYE EXAM: normal conjunctiva, PERRL and EOM's grossly intact OROPHARYNX: no exudate, no erythema, lips, buccal mucosa, and tongue normal and mucous membranes are moist NECK: supple, no nuchal rigidity, no adenopathy, non-tender LUNGS: Clear to auscultation. Normal chest wall mechanics, no w/r/r HEART: no murmurs, S1 normal and S2 normal ABDOMEN: abdomen soft, non-tender, normo-active bowel sounds, no masses, no rebound or guarding. BACK: Back is symmetrical on inspection and there is no deformity, no midline tenderness, no CVA tenderness. SKIN: no rashes, petechiae, orbruising UPPER EXTREMITIES: upper extremities are grossly normal. FROM, nml pulses b/l. LOWER EXTREMITIES: No pitting edema. FROM, nml pulses b/l. NEURO EXAM: Normal sensorium, cranial nerves II-XII grossly intact, normal speech, no facial droop,nogross weakness of arms, no gross weakness of legs. Gross sensation intact. No ataxia. Vital Signs: reviewed and remarkable Differential Diagnosis: acute coronary syndrome, pericarditis, pulmonary embolus, aortic dissection, pneumonia, pneumothorax, musculoskeletal pain, shingles, GERD, GI bleed, as well as others were considered MEDICAL DECISION MAKING: This is a 38 yo female who presents due to concern for ongoing chest pain. Patient with recent cardiac stenting due to CAD, multiple risk factors, and CKD on HD. She was afebrile and VS stable. Labs drawn and sent, IV established, EKG and CXR performed and interpreted at bedside, and patient placed on telemetry. No acute EKG changes noted. No concerning findings on cxr. Troponin elevated although not significantly higher compared to prior. Given risk and reported sx, case discussed with the hospitalist for additional evaluation and mgmt. Consultation(s): 0548: Discussed with Dr. Blank for additional inpatient evaluation and mgmt. ER Treatment Provided: See below Diagnostics Interpreted By Me: -ECG: Normal sinus at 89, leftward axis, prolonged QTc, normal QRS, nonspecific ST/T wave changes -Cardiac Monitoring: An order was placed for continuous cardiac monitoring. The monitor shows a rate of 88 with normal sinus rhythm. -Laboratory studies: As stated above and show below. -Imaging studies: cxr: Cardiomegaly noted, no pleural effusions, no overt pulmonary edema, no focal consolidation, no wide mediastinum Triage Nursing Note Reviewed Prior/Outside Records Reviewed Past Med/Surg History Problem List (Updated 07/10/24 @ 11:49 by Adolph Marrufo) HTN, goal below 130/80 Dyslipidemia, goal LDL below 70 Stented coronary artery Premature coronary artery disease Chest pain at rest Chest pain (Acute) Rhinovirus infection Ischemic cardiomyopathy S/P right coronary artery (RCA) stent placement Status post insertion of drug-eluting stent into left anterior descending (LAD) artery History of heart artery stent (Acute) Coronary artery disease (Acute) ESRD (end stage renal disease) on dialysis (Acute) Substernal chest pain (Acute) Atypical chest pain (Acute) Anemia (Acute) Atypical chest pain (Acute) Abnormal laboratory test (Acute) Coronary artery disease due to calcified coronary lesion Dialysis complication (Acute) Syncope (Acute) Acute hyperkalemia (Acute) Symptomatic anemia (Acute) Episode of syncope Rectal bleeding Chest pain (Acute) ESRD on dialysis (Acute) Acute hyperkalemia (Acute) Elevated troponin (Acute) Chest pain not due to acute coronary syndrome (Acute) Bleeding external hemorrhoids (Acute) Non-compliance (Acute) Fluid overload (Acute) Uremia (Acute) Anemia (Acute) Depression (Acute) Weakness (Acute) Sleep deprivation (Acute) Hallucinations (Acute) Anemia (Acute) Dialysis patient (Acute) Medical non-compliance (Acute) Acute uremia (Acute) Shortness of breath (Acute) Elevated troponin (Acute) Acute hyperkalemia (Acute) SOB (shortness of breath) (Acute) SOB (shortness of breath) (Acute) CHF (congestive heart failure) (Acute) Acute uremia (Acute) Somnolence (Acute) Medical non-compliance (Acute) Elevated troponin (Acute) Dialysis patient (Acute) Renal failure (Acute) Hyperkalemia (Acute) Thrombocytopenia COVID-19 (Acute) Renal osteodystrophy Anemia in ESRD (end-stage renal disease) ESRD (end stage renal disease) on dialysis (Acute) DM2 (diabetes mellitus, type 2) (Acute) Anxiety Depression Major depressive disorder, recurrent, in partial remission Depression with anxiety Anemia of chronic disease Status post fall last fallNovember 2022 > nasal fx / knee pain, no surgery for either injury > resolved per pt report Prolonged QT interval (Acute) no cardio HTN (hypertension) (Acute) Anemia due to end stage renal disease (Acute) FSGS (focal segmental glomerulosclerosis) (Chronic) DX INITIALLY 2012 (CAUSING ESRD 2012) Medical History Mood disorder Anxiety disorder, unspecified Abnormal chest xray Elevated lactic acid level Transaminitis Pneumonia Metabolic encephalopathy Acute non-ST elevation myocardial infarction (NSTEMI) Pulmonary edema Acute hyperkalemia Acute alteration in mental status Renal failure (ARF), acute on chronic Encephalopathy Facial fracture GI bleed ESRD (end stage renal disease) on dialysis Symptomatic anemia Tobacco abuse DVT prophylaxis Fistula right arm (currently being used) and left arm Dialysis patient SATURDAY/SAT/SATURDAY AT [facility] GERD (gastroesophageal reflux disease) Bipolar disorder Restless leg syndrome Peripheral neuropathy Asthma rare res inh use History of abnormal cervical Papanicolaou smear Elevated troponin Acute electrocardiogram changes Surgical History H/O eye surgery LASER SURGERY LEFT History of surgery left arm d/t clot in arm from AV fistula use @ [facility] History of surgery (~09/09/20) perm cath > since removed History of colonoscopy Kidney transplant recipient 2013 AT [facility] History of tooth extraction three TOOTH History of cardiac cath 2016 NO STENTS AVF (arteriovenous fistula) bilat upper arms ---currently using right for dialysis Family History Grandmother Hx of CABG Mother Diabetes Father Crohn's disease Grandfather (Maternal) Diabetes Uncle Diabetes Grandmother (Maternal) Family history of reaction to anesthesia difficulty waking with colonoscopy Social History Smoking Status: Former smoker Tobacco Type: Cigarettes Cigarettes Per Day: 20; Second Hand Exposure: Yes (on occasion); Do You Dip or Chew Tobacco: No; Hx Alcohol Use: Yes Alcohol type: hard liquor Alcohol Intake Frequency Comment: q3 months Hx Substance Use: No Preferred Language: Turkmen Communication Ability: Effective [employer] Tennis [employer]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 Beliefs That Will Affect Care: None marital status: Single Current Living Situation: Family Current Living Situation Comment: grandparents How many Children do You have: 3 Feels Safe at Home: Yes Assistive Devices: None Allergies Allergies Allergy/AdvReac Type Severity Reaction Status Date / Time cefaclor Allergy Intermediate Rash Verified 06/25/24 10:45 Cephalosporins Allergy Intermediate Rash Verified 06/25/24 10:45 amoxicillin AdvReac Intermediate VOMITING Verified 06/25/24 10:45 clavulanic acid AdvReac Intermediate VOMITING Verified 06/25/24 10:45 Home Meds Home Medications Medication Instructions Recorded Confirmed albuterol sulfate 2.5 mg/3 mL 2.5 mg inhalation Q4H PRN 06/08/23 07/10/24 (0.083 %) solution for nebulization Shortness Of Breath Or Wheezing albuterol sulfate 90 mcg/actuation 2 puff inhalation Q6H PRN 06/08/23 07/10/24 aerosol inhaler Shortness Of Breath Or Wheezing carbamazepine 200 mg tablet 200 mg PO AMPM 06/08/23 07/10/24 hydroxyzine HCl 25 mg tablet 25 mg PO Q6H PRN Anxiety 06/08/23 07/10/24 lorazepam 0.5 mg tablet 0.5 mg PO Q8 PRN Anxiety 06/08/23 07/10/24 mometasone-formoterol HFA 200 2 puff inhalation BID 06/08/23 07/10/24 mcg-5 mcg/actuation aerosol inhaler (Dulera) vitamin B complex-vitamin C-folic 1 tab PO DAILY 06/08/23 07/10/24 acid 0.8 mg tablet (Renal-Rika) benzonatate 100 mg capsule 200 mg PO TID PRN Cough 08/29/23 07/10/24 calcium acetate(phosphat bind) 667 2,001 mg PO UD 08/29/23 07/10/24 mg capsule cinacalcet 90 mg tablet 90 mg PO QDD 08/29/23 07/10/24 medroxyprogesterone 150 mg/mL 150 mg IM UD 08/29/23 07/10/24 intramuscular suspension (Depo-Provera) bupropion HCl 150 mg 24 hr tablet, 150 mg PO QAM 04/17/24 07/10/24 extended release mirtazapine 7.5 mg tablet 7.5 mg PO HS 04/17/24 07/10/24 Previous Rx's Medication Instructions Recorded lidocaine 5 % topical ointment 1 applic topical QID PRN pain #30 04/11/24 grams varenicline 0.5 mg tablet 0.5 mg PO DAILY #30 tabs 04/30/24 aspirin 81 mg tablet,delayed 81 mg PO QAM #30 tabs 05/09/24 release clopidogrel 75 mg tablet 75 mg PO QAM #30 tabs 05/09/24 metoprolol succinate 25 mg 25 mg PO BID #60 tabs 05/09/24 tablet,extended release 24 hr gabapentin 100 mg capsule 200 mg (2 x 100 mg) PO TID #180 05/10/24 caps pantoprazole 40 mg tablet,delayed 40 mg PO BID #60 tabs 05/10/24 release atorvastatin 40 mg tablet 40 mg PO DAILY #30 tabs 07/11/24 Results & Data (ED) Vital Signs Vital Signs - 24 hr 07/10/24 03:47 07/10/24 03:49 07/10/24 03:49 Temperature 36.6 C Temperature Source Oral Pulse Rate 87 89 Pulse Rate [Apical] Pulse Rhythm Regular Pulse Rhythm [Apical] Pulse Strength Normal Pulse Strength [Apical] Respiratory Rate 20 Respiratory Effort / Characteristics Non-Labored Spontaneous Respiratory Depth Normal Respiratory Pattern Regular Blood Pressure 110/77 Blood Pressure [Right Arm] Blood Pressure Mean 88 Blood Pressure Mean [Right Arm] Pulse Oximetry 97 97 Oxygen Delivery Method Room Air Room Air Sepsis Recent Fever Within 48 Hours No Sepsis New/Unexplained Change in Mental Status No Sepsis Action Taken by Nursing No Action Required 07/10/24 03:49 07/10/24 04:15 07/10/24 05:03 Temperature Temperature Source Pulse Rate 86 84 Pulse Rate [Apical] 89 Pulse Rhythm Pulse Rhythm [Apical] Regular Pulse Strength Pulse Strength [Apical] Normal Respiratory Rate 20 14 18 Respiratory Effort / Characteristics Non-Labored Spontaneous Respiratory Depth Normal Respiratory Pattern Regular Blood Pressure 156/89 H 97/62 L Blood Pressure [Right Arm] 110/77 Blood Pressure Mean 111 73 Blood Pressure Mean [Right Arm] 88 Pulse Oximetry 97 98 97 Oxygen Delivery Method Room Air Sepsis Recent Fever Within 48 Hours Sepsis New/Unexplained Change in Mental Status Sepsis Action Taken by Nursing 07/10/24 05:33 Temperature Temperature Source Pulse Rate 85 Pulse Rate [Apical] Pulse Rhythm Pulse Rhythm [Apical] Pulse Strength Pulse Strength [Apical] Respiratory Rate 19 Respiratory Effort / Characteristics Respiratory Depth Respiratory Pattern Blood Pressure 118/58 L Blood Pressure [Right Arm] Blood Pressure Mean 78 Blood Pressure Mean [Right Arm] Pulse Oximetry 97 Oxygen Delivery Method Sepsis Recent Fever Within 48 Hours Sepsis New/Unexplained Change in Mental Status Sepsis Action Taken by Nursing Laboratory Data 07/11/24 06:49 07/11/24 06:49 Lab Results 07/10/24 Range/Units 04:22 WBC 4.33 L (4.8-10.8) K/ul RBC 2.96 L (4.20-5.40) M/uL Hgb 9.8 L (12.0-16.0) g/dl Hct 30.7 L (37.0-47.0) % MCV 103.7 H (80.0-100.0) fL MCH 33.1 (25.0-34.0) pg MCHC 31.9 L (32.0-36.0) g/dL RDW Std Deviation 67.3 H (36.4-46.3) fL RDW Coeff of Laith 17.6 H (11.5-14.5) % Plt Count 121 L (130-400) K/uL MPV 9.9 (9.4-12.4) fL Immature Gran % (Auto) 0.7 % Neut % (Auto) 74.6 % Lymph % (Auto) 12.9 % Hendry % (Auto) 10.2 % Eos % (Auto) 1.4 % Baso % (Auto) 0.2 % Neut # (Auto) 3.23 (1.40-6.50) K/uL Lymph # (Auto) 0.56 L (1.20-3.40) K/uL Hendry # (Auto) 0.44 (0.11-0.59) K/uL Eos # (Auto) 0.06 (0.00-0.50) K/uL Baso # (Auto) 0.01 (0.00-0.20) K/uL Immature Gran # (Auto) 0.03 (0.01-0.20) K/uL PT 11.1 (9.0-12.0) Seconds INR 1.0 (0.9-1.1) Sodium 138 (136-145) mmol/L Potassium 4.5 (3.5-5.1) mmol/L Chloride 89 L (98-107) mmol/L Carbon Dioxide 33 H (21-32) mmol/L Anion Gap 16 H (3-11) BUN 42 H (6-23) mg/dl Creatinine 7.50 H* (0.6-1.2) mg/dl Est Cr Clr Drug Dosing 11.0 ml/min eGFR 6.59 BUN/Creatinine Ratio 5.6 L (10-20) Glucose 127 H (70-99(Fasting)) mg/dl Calcium 10.7 H (8.6-10.3) mg/dl Magnesium 2.4 (1.7-2.4) mg/dl Total Bilirubin 0.7 (0.2-1.0) mg/dl AST 16 (13-39) U/L ALT 9 (7-52) U/L Alkaline Phosphatase 116 H (34-104) U/L Troponin I High Sens 58.2 H* (0-14) pg/ml Total Protein 6.7 (6.0-8.3) gm/dl Albumin 4.4 (3.4-5.0) gm/dl Globulin 2.3 L (2.5-4.0) gm/dl Albumin/Globulin Ratio 1.9 (0.9-2) Lipase 27 (11-82) U/L Administered Medications Discontinued Medications Acetaminophen (Acetaminophen 325 Mg Tab) 650 mg PO QID PRN PRN Reason: pain/fever Stop: 08/09/24 06:06 Last Admin: 07/10/24 16:16 Dose: 650 mg Documented By: LEILANI Aspirin (Aspirin 81 Mg Ectab) [facility] [place] Stop: 08/09/24 08:59 Last Admin: 07/11/24 08:40 Dose: 81 mg Documented By: Admin: 07/10/24 09:53 Dose: 81 mg Documented By: LEILANI Bupropion HCl (Bupropion Xl 150 Mg Tabcr) 150 [facility] [place] Stop: 08/09/24 08:59 Last Admin: 07/11/24 08:40 Dose: 150 mg Documented By: Admin: 07/10/24 09:52 Dose: 150 mg Documented By: LEILANI Calcium Acetate (Calcium Acetate 667 Mg Cap/Tab) 2,001 mg PO TIDM [facility] Stop: 08/09/24 11:59 Last Admin: 07/11/24 13:09 Dose: 2,001 mg Documented By: Admin: 07/11/24 08:39 Dose: 2,001 mg Documented By: Admin: 07/10/24 16:18 Dose: 2,001 mg Documented By: Admin: 07/10/24 11:57 Dose: 2,001 mg Documented By: LEILANI Clopidogrel Bisulfate (Clopidogrel Bisulfate 75 Mg Tab) 75 [facility] [place] Stop: 08/09/24 08:59 Last Admin: 07/11/24 08:40 Dose: 75 mg Documented By: Admin: 07/10/24 09:53 Dose: 75 mg Documented By: LEILANI Epoetin Travis (Epoetin Travis 10,000 Units/Ml Vial) 10,000 units IV ONE ONE Stop: 07/10/24 10:01 Last Admin: 07/10/24 15:20 Dose: 10,000 units Documented By: CATHERINE Fluticasone/Vilanterol (Fluticasone/Vilanterol 100/25mcg 14 Puffs/Inhaler) 1 puffs INH DAILY [facility] Stop: 08/09/24 08:59 Last Admin: 07/11/24 08:38 Dose: Not Given Documented By: Admin: 07/10/24 09:53 Dose: Not Given Documented By: LEILANI Gabapentin (Gabapentin 100 Mg Cap) 200 mg PO TID NIKKI Stop: 08/09/24 08:59 Last Admin: 07/11/24 13:09 Dose: 200 mg Documented By: Admin: 07/11/24 08:39 Dose: 200 mg Documented By: Admin: 07/10/24 20:32 Dose: 200 mg Documented By: [id number] Admin: 07/10/24 16:15 Dose: 200 mg Documented By: Admin: 07/10/24 09:52 Dose: 200 mg Documented By: LEILANI Pantoprazole Sodium (Protonix) 40 mg in 10 mls @ 5 mls/min IV NOW ONE Stop: 07/10/24 04:13 Last Admin: 07/10/24 04:40 Dose: 5 mls/min Documented By: LYNSEY Acetaminophen (Ofirmev) 1,000 mg in 100 mls @ 400 mls/hr IV NOW STA Stop: 07/10/24 04:26 Last Infusion: 07/10/24 05:56 Dose: Infused Documented By: Admin: 07/10/24 04:40 Dose: 400 mls/hr Documented By: LYNSEY Albumin Human (Albumin 25%) 12.5 gm in 50 mls @ 50 mls/hr IV ONE ONE Stop: 07/10/24 07:03 Last Infusion: 07/10/24 07:21 Dose: Infused Documented By: LITTLE [place]IVER Admin: 07/10/24 06:16 Dose: 50 mls/hr Documented By: LYNSEY Insulin Aspart (Insulin Aspart Per Unit Charge) 0 units SC ACHS NIKKI Stop: 08/09/24 08:59 Last Admin: 07/11/24 13:08 Dose: Not Given Documented By: Admin: 07/11/24 08:41 Dose: 2 units Documented By: SARAH Co-signed By: ENMA Admin: 07/10/24 20:31 Dose: Not Given Documented By: [id number] Admin: 07/10/24 17:03 Dose: Not Given Documented By: Admin: 07/10/24 11:57 Dose: 4 units Documented By: LEILANI Co-signed By: ARIAS Admin: 07/10/24 09:06 Dose: Not Given Documented By: L[place] Ioversol (Optiray 320 125ml) 120 ml IV ONCE ONE Stop: 07/10/24 08:28 Last Admin: 07/10/24 08:28 Dose: 120 ml Documented By: ROBERTO Lorazepam (Lorazepam 0.5 Mg Tab) 0.5 mg PO Q8 PRN PRN Reason: Anxiety Stop: 08/09/24 06:08 Last Admin: 07/11/24 08:50 Dose: 0.5 mg Documented By: Admin: 07/10/24 12:35 Dose: 0.5 mg Documented By: LEILANI Metoprolol Succinate (Metoprolol Succ 25mg Ext Rel Tab) 25 mg PO BID NIKKI Stop: 08/09/24 08:59 Last Admin: 07/11/24 08:40 Dose: 25 mg Documented By: Admin: 07/10/24 20:33 Dose: 25 mg Documented By: [id number] Admin: 07/10/24 09:52 Dose: 25 mg Documented By: LEILANI Mirtazapine (Mirtazapine Tab 15 Mg Tab) 7.5 mg PO HS NIKKI Stop: 08/09/24 20:59 Last Admin: 07/10/24 20:34 Dose: 7.5 mg Documented By: [id number] Miscellaneous (Varenicline~Order Awaiting Action) 1 each N/A QS [facility] Stop: 08/09/24 07:59 Last Admin: 07/11/24 10:40 Dose: Not Given Documented By: Admin: 07/11/24 00:22 Dose: Not Given Documented By: [id number] Admin: 07/10/24 09:50 Dose: 1 each Documented By: Admin: 07/10/24 09:50 Dose: Not Given Documented By: LEILANI Morphine Sulfate (Morphine Sulfate 2 Mg/Ml Carp) 1 mg IV NOW STA Stop: 07/10/24 10:15 Last Admin: 07/10/24 10:26 Dose: 1 mg Documented By: LEILANI Nitroglycerin (Nitroglycerin Sl 0.4 Mg/Tab Tab) 0.4 mg SL NOW STA Stop: 07/10/24 06:05 Last Admin: 07/10/24 06:16 Dose: 0.4 mg Documented By: EJW Pantoprazole Sodium (Pantoprazole 40 Mg Tab) 40 mg PO BID NIKKI Stop: 08/09/24 20:59 Last Admin: 07/11/24 08:40 Dose: 40 mg Documented By: Admin: 07/10/24 20:32 Dose: 40 mg Documented By: [id number] Rosuvastatin Calcium (Rosuvastatin Calcium 20 Mg Tab) 20 mg PO QAM NIKKI Stop: 08/09/24 08:59 Last Admin: 07/11/24 08:39 Dose: 20 mg Documented By: Admin: 07/10/24 09:52 Dose: 20 mg Documented By: GG Tramadol HCl (Tramadol Hcl 50 Mg Tablet) 25 - 50 mg PO Q4H PRN PRN Reason: Pain Stop: 08/09/24 06:06 Last Admin: 07/11/24 08:39 Dose: 50 mg Documented By: Admin: 07/10/24 19:31 Dose: 50 mg Documented By: [id number] Admin: 07/10/24 07:44 Dose: 50 mg Documented By: LITTLE R[place] Imaging Data Radiologist's Impression: Chest X-Ray 07/10/24 04:12 EXAM: XR chest 1V portable CLINICAL HISTORY: CHEST PAIN JMF TECHNIQUE: Radiograph of chest was acquired. COMPARISON: 29 June 2024. FINDINGS: Lungs are clear and well-expanded with no pulmonary infiltrate. No pleural effusion is detected. Unchanged cardiomegaly. Rest of the findings are unchanged compared to the previous radiograph. IMPRESSION: 1. Unchanged cardiomegaly. 2. Findings are relatively unchanged compared to the previous radiograph. No interval new finding is noted. Electronically signed by Mj Downs 07-10-2024 05:39 AM Discharge Plan Visit Data Chief Complaint: Chest Pain Stated Complaint: Chest Pain, Vomiting ED Provider: Taylor Rodarte Discharge Problem: Chest pain Patient Disposition: Admitted As Inpatient Discharge Instructions Interventions: ED Discharge Assessment Last Done: 07/10/24 09:11
[2024-07-10 05:16] LABS: Albumin Globulin Ratio 1.9 (0.9-2); Albumin Level 4.4 gm/dl (3.4-5.0); BUN Creatinine Ratio 5.6 (10-20); Bilirubin,Total 0.7 mg/dl (0.2-1.0); Calcium 10.7 mg/dl (8.6-10.3); Globulin 2.3 gm/dl (2.5-4.0); Magnesium 2.4 mg/dl (1.7-2.4); Potassium 4.5 mmol/L (3.5-5.1); Total Protein 6.7 gm/dl (6.0-8.3); Troponin I High Sensitivity 58.2 pg/ml (0-14)
--- NOTE | 2024-07-10 05:40 | XRay Report ---
EXAM: XR chest 1V portable CLINICAL HISTORY: CHEST PAIN JMF TECHNIQUE: Radiograph of chest was acquired. COMPARISON: 29 June 2024. FINDINGS: Lungs are clear and well-expanded with no pulmonary infiltrate. No pleural effusion is detected. Unchanged cardiomegaly. Rest of the findings are unchanged compared to the previous radiograph. IMPRESSION: 1. Unchanged cardiomegaly. 2. Findings are relatively unchanged compared to the previous radiograph. No interval new finding is noted. Electronically signed by Mj Downs 07-10-2024 05:39 AM
--- NOTE | 2024-07-10 06:04 | History & Physical Report ---
Date of Service July 10, 2024 Assessment & Plan (1) Chest pain: Plan: Atypical chest pain No relief with nitroglycerin administered at the ER. 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 SCDs recent GI bleed Full code Text document was generated using EGEN voice recognition software. It may contain grammatical or spelling errors. Kindly contact undersigned for clarification of any documentation item in question. History of Present Illness Chief Complaint: Chest pain Primary Care Provider: Adolph Aldridge MD History obtained from patient and records. Medical history significant for chronic systolic heart failure (EF 45%, TTE ), CAD status post recent stent, valvular heart disease (mild MR/MS), hypertension, ESRD on HD, history of FSGS status post failed renal transplantation, DM2 diet controlled, anxiety/mood disorder, colonic polyps/diverticulosis, RLS, chronic anemia (baseline hemoglobin of 8-9), history of migraine, medical noncompliance, \ ongoing tobacco abuse. Recent overnight confinement 06/29-06/30 for chest pain. Chest pain deemed atypical after cardiology eval. Patient comfortable at time of discharge. Patient had recurrence of substernal chest pain, nonpleuritic, with some SOB shortly after leaving hospital. Compliant with home medications. Denies unusual stress. Patient had emesis tonight. Patient consulted ER for worsening symptoms. Chest pain not relieved by nitroglycerin administration at the ER. Medical History as above Surgical History : Vascular procedures, section, cystoscopy, knee surgery, eye surgery, BTL, renal biopsy, kidney transplant Family History : SLE, Crohn's disease, high blood pressure, depression Personal/Social history: past tobacco abuse, no EtOH intake, disabled Allergies Allergy/AdvReac Type Severity Reaction Status Date / Time cefaclor Allergy Intermediate Rash Verified 06/25/24 10:45 Cephalosporins Allergy Intermediate Rash Verified 06/25/24 10:45 amoxicillin AdvReac Intermediate VOMITING Verified 06/25/24 10:45 clavulanic acid AdvReac Intermediate VOMITING Verified 06/25/24 10:45 Home Medications Medication Instructions Recorded Confirmed Type albuterol sulfate 2.5 mg/3 mL 2.5 mg inhalation Q4H PRN 06/08/23 07/10/24 History (0.083 %) solution for nebulization Shortness Of Breath Or Wheezing albuterol sulfate 90 mcg/actuation 2 puff inhalation Q6H PRN 06/08/23 07/10/24 History aerosol inhaler Shortness Of Breath Or Wheezing carbamazepine 200 mg tablet 200 mg PO AMPM 06/08/23 07/10/24 History hydroxyzine HCl 25 mg tablet 25 mg PO Q6H PRN Anxiety 06/08/23 07/10/24 History lorazepam 0.5 mg tablet 0.5 mg PO Q8 PRN Anxiety 06/08/23 07/10/24 History mometasone-formoterol HFA 200 2 puff inhalation BID 06/08/23 07/10/24 History mcg-5 mcg/actuation aerosol inhaler (Dulera) vitamin B complex-vitamin C-folic 1 tab PO DAILY 06/08/23 07/10/24 History acid 0.8 mg tablet (Renal-Rika) benzonatate 100 mg capsule 200 mg PO TID PRN Cough 08/29/23 07/10/24 History calcium acetate(phosphat bind) 667 2,001 mg PO UD 08/29/23 07/10/24 History mg capsule cinacalcet 90 mg tablet 90 mg PO QDD 08/29/23 07/10/24 History medroxyprogesterone 150 mg/mL 150 mg IM UD 08/29/23 07/10/24 History intramuscular suspension (Depo-Provera) lidocaine 5 % topical ointment 1 applic topical QID PRN pain #30 04/11/24 07/10/24 Rx grams bupropion HCl 150 mg 24 hr tablet, 150 mg PO QAM 04/17/24 07/10/24 History extended release mirtazapine 7.5 mg tablet 7.5 mg PO HS 04/17/24 07/10/24 History varenicline 0.5 mg tablet 0.5 mg PO DAILY #30 tabs 04/30/24 07/10/24 Rx aspirin 81 mg tablet,delayed 81 mg PO QAM #30 tabs 05/09/24 07/10/24 Rx release clopidogrel 75 mg tablet 75 mg PO QAM #30 tabs 05/09/24 07/10/24 Rx metoprolol succinate 25 mg 25 mg PO BID #60 tabs 05/09/24 07/10/24 Rx tablet,extended release 24 hr rosuvastatin 20 mg tablet 20 mg PO QAM #30 tabs 05/09/24 07/10/24 Rx gabapentin 100 mg capsule 200 mg (2 x 100 mg) PO TID #180 05/10/24 07/10/24 Rx caps pantoprazole 40 mg tablet,delayed 40 mg PO BID #60 tabs 05/10/24 07/10/24 Rx release Past Med/Surg History Problem List (Updated 07/10/24 @ 05:14 by Taylor Rodarte, ) Chest pain (Acute) Rhinovirus infection Ischemic cardiomyopathy S/P right coronary artery (RCA) stent placement Status post insertion of drug-eluting stent into left anterior descending (LAD) artery History of heart artery stent (Acute) Coronary artery disease (Acute) ESRD (end stage renal disease) on dialysis (Acute) Substernal chest pain (Acute) Atypical chest pain (Acute) Anemia (Acute) Atypical chest pain (Acute) Abnormal laboratory test (Acute) Coronary artery disease due to calcified coronary lesion Dialysis complication (Acute) Syncope (Acute) Acute hyperkalemia (Acute) Symptomatic anemia (Acute) Episode of syncope Rectal bleeding Chest pain (Acute) ESRD on dialysis (Acute) Acute hyperkalemia (Acute) Elevated troponin (Acute) Chest pain not due to acute coronary syndrome (Acute) Bleeding external hemorrhoids (Acute) Non-compliance (Acute) Fluid overload (Acute) Uremia (Acute) Anemia (Acute) Depression (Acute) Weakness (Acute) Sleep deprivation (Acute) Hallucinations (Acute) Anemia (Acute) Dialysis patient (Acute) Medical non-compliance (Acute) Acute uremia (Acute) Shortness of breath (Acute) Elevated troponin (Acute) Acute hyperkalemia (Acute) SOB (shortness of breath) (Acute) SOB (shortness of breath) (Acute) CHF (congestive heart failure) (Acute) Acute uremia (Acute) Somnolence (Acute) Medical non-compliance (Acute) Elevated troponin (Acute) Dialysis patient (Acute) Renal failure (Acute) Hyperkalemia (Acute) Thrombocytopenia COVID-19 (Acute) Renal osteodystrophy Anemia in ESRD (end-stage renal disease) ESRD (end stage renal disease) on dialysis (Acute) DM2 (diabetes mellitus, type 2) (Acute) Anxiety Depression Major depressive disorder, recurrent, in partial remission Depression with anxiety Anemia of chronic disease Status post fall last fallNovember 2022 > nasal fx / knee pain, no surgery for either injury > resolved per pt report Prolonged QT interval (Acute) no cardio HTN (hypertension) (Acute) Anemia due to end stage renal disease (Acute) FSGS (focal segmental glomerulosclerosis) (Chronic) DX INITIALLY 2012 (CAUSING ESRD 2012) Medical History Mood disorder Anxiety disorder, unspecified Abnormal chest xray Elevated lactic acid level Transaminitis Pneumonia Metabolic encephalopathy Acute non-ST elevation myocardial infarction (NSTEMI) Pulmonary edema Acute hyperkalemia Acute alteration in mental status Renal failure (ARF), acute on chronic Encephalopathy Facial fracture GI bleed ESRD (end stage renal disease) on dialysis Symptomatic anemia Tobacco abuse DVT prophylaxis Fistula right arm (currently being used) and left arm Dialysis patient SATURDAY/SAT/SATURDAY AT [facility] GERD (gastroesophageal reflux disease) Bipolar disorder Restless leg syndrome Peripheral neuropathy Asthma rare res inh use History of abnormal cervical Papanicolaou smear Elevated troponin Acute electrocardiogram changes Surgical History H/O eye surgery LASER SURGERY LEFT History of surgery left arm d/t clot in arm from AV fistula use @ [facility] History of surgery (~09/09/20) perm cath > since removed History of colonoscopy Kidney transplant recipient 2013 AT [facility] History of tooth extraction three TOOTH History of cardiac cath 2016 NO STENTS AVF (arteriovenous fistula) bilat upper arms ---currently using right for dialysis Family History Grandmother Hx of CABG Mother Diabetes Father Crohn's disease Grandfather (Maternal) Diabetes Uncle Diabetes Grandmother (Maternal) Family history of reaction to anesthesia difficulty waking with colonoscopy Social History Smoking Status: Former smoker Tobacco Type: Cigarettes Cigarettes Per Day: 20; Second Hand Exposure: Yes (on occasion); Do You Dip or Chew Tobacco: No; Hx Alcohol Use: Yes Alcohol type: hard liquor Alcohol Intake Frequency Comment: q3 months Hx Substance Use: No Preferred Language: Trinidadian Communication Ability: Effective Asbestos Siding Installer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 Beliefs That Will Affect Care: None marital status: Single Current Living Situation: Family Current Living Situation Comment: grandparents How many Children do You have: 3 Other Information That Helps Us Care for You: No Feels Safe at Home: Yes Safety Concerns: Feels Safe At This Time Assistive Devices: Glasses Review of Systems Review of Systems: As per HPI, all other systems reviewed and negative Physical Exam Physical Exam: GENERAL: Comfortable, obese, looks older than stated age, no respiratory distress SKIN: Pallor, warm HEENT: Pale palpebral conjunctivae, no ptosis, dry buccal mucosa NECK : Supple, short neck, no tenderness CHEST : Decreased breath sounds, no tenderness HEART : RRR, no obvious murmurs ABDOMEN: Some distention, nontender EXTREMITIES : Minimal LE swelling, no LE tenderness, upper extremity AV grafts, no other conspicuous deformities noted NEUROLOGIC : Coherent, no facial asymmetry, no other gross focality Results & Data Results & Data Vital Signs (Past 12 Hours) Vital Signs Temp Pulse Pulse Resp BP BP Pulse Ox 07/10/24 05:33 85 19 118/58 L 97 07/10/24 05:03 84 18 97/62 L 97 07/10/24 04:15 86 14 156/89 H 98 07/10/24 03:49 89 20 110/77 97 07/10/24 03:49 97 07/10/24 03:49 36.6 C 89 20 110/77 97 07/10/24 03:47 87 O2 Del Method 07/10/24 05:33 07/10/24 05:03 07/10/24 04:15 07/10/24 03:49 Room Air 07/10/24 03:49 Room Air 07/10/24 03:49 Room Air 07/10/24 03:47 Laboratory Results Laboratory Results WBC 4.33 K/ul (4.8-10.8) L 07/10/24 04:22 RBC 2.96 M/uL (4.20-5.40) L 07/10/24 04:22 Hgb 9.8 g/dl (12.0-16.0) L 07/10/24 04:22 Hct 30.7 % (37.0-47.0) L 07/10/24 04:22 MCV 103.7 fL (80.0-100.0) H 07/10/24 04:22 MCH 33.1 pg (25.0-34.0) 07/10/24 04:22 MCHC 31.9 g/dL (32.0-36.0) L 07/10/24 04:22 RDW Std Deviation 67.3 fL (36.4-46.3) H 07/10/24 04:22 RDW Coeff of Laith 17.6 % (11.5-14.5) H 07/10/24 04:22 Plt Count 121 K/uL (130-400) L 07/10/24 04:22 MPV 9.9 fL (9.4-12.4) 07/10/24 04:22 Immature Gran % (Auto) 0.7 % 07/10/24 04:22 Neut % (Auto) 74.6 % 07/10/24 04:22 Lymph % (Auto) 12.9 % 07/10/24 04:22 Griggs % (Auto) 10.2 % 07/10/24 04:22 Eos % (Auto) 1.4 % 07/10/24 04:22 Baso % (Auto) 0.2 % 07/10/24 04:22 Neut # (Auto) 3.23 K/uL (1.40-6.50) 07/10/24 04:22 Lymph # (Auto) 0.56 K/uL (1.20-3.40) L 07/10/24 04:22 Griggs # (Auto) 0.44 K/uL (0.11-0.59) 07/10/24 04:22 Eos # (Auto) 0.06 K/uL (0.00-0.50) 07/10/24 04:22 Baso # (Auto) 0.01 K/uL (0.00-0.20) 07/10/24 04:22 Immature Gran # (Auto) 0.03 K/uL (0.01-0.20) 07/10/24 04:22 PT 11.1 Seconds (9.0-12.0) 07/10/24 04:22 INR 1.0 (0.9-1.1) 07/10/24 04:22 Sodium 138 mmol/L (136-145) 07/10/24 04:22 Potassium 4.5 mmol/L (3.5-5.1) 07/10/24 04:22 Chloride 89 mmol/L (98-107) L 07/10/24 04:22 Carbon Dioxide 33 mmol/L (21-32) H 07/10/24 04:22 Anion Gap 16 (3-11) H 07/10/24 04:22 BUN 42 mg/dl (6-23) H 07/10/24 04:22 Creatinine 7.50 mg/dl (0.6-1.2) H* 07/10/24 04:22 Est Cr Clr Drug Dosing 11.0 ml/min 07/10/24 04:22 eGFR 6.59 07/10/24 04:22 BUN/Creatinine Ratio 5.6 (10-20) L 07/10/24 04:22 Glucose 127 mg/dl (70-99(Fasting)) H 07/10/24 04:22 Calcium 10.7 mg/dl (8.6-10.3) H 07/10/24 04:22 Magnesium 2.4 mg/dl (1.7-2.4) 07/10/24 04:22 Total Bilirubin 0.7 mg/dl (0.2-1.0) 07/10/24 04:22 AST 16 U/L (13-39) 07/10/24 04:22 ALT 9 U/L (7-52) 07/10/24 04:22 Alkaline Phosphatase 116 U/L (34-104) H 07/10/24 04:22 Troponin I High Sens 58.2 pg/ml (0-14) H* 07/10/24 04:22 Total Protein 6.7 gm/dl (6.0-8.3) 07/10/24 04:22 Albumin 4.4 gm/dl (3.4-5.0) 07/10/24 04:22 Globulin 2.3 gm/dl (2.5-4.0) L 07/10/24 04:22 Albumin/Globulin Ratio 1.9 (0.9-2) 07/10/24 04:22 Lipase 27 U/L (11-82) 07/10/24 04:22 Impressions Chest X-Ray 07/10/24 04:12 EXAM: XR chest 1V portable CLINICAL HISTORY: CHEST PAIN JMF TECHNIQUE: Radiograph of chest was acquired. COMPARISON: 29 June 2024. FINDINGS: Lungs are clear and well-expanded with no pulmonary infiltrate. No pleural effusion is detected. Unchanged cardiomegaly. Rest of the findings are unchanged compared to the previous radiograph. IMPRESSION: 1. Unchanged cardiomegaly. 2. Findings are relatively unchanged compared to the previous radiograph. No interval new finding is noted. Electronically signed by Mj Downs 07-10-2024 05:39 AM Diagnostic Findings EKG as per my interpretation :Rate 90, NSR, LAD, LAFB, LVH, no ischemia
[2024-07-10] MEDS ORDERED: hydrOXYzine HCl 25 MG TAB PO PRN (06:09)
[2024-07-10] MEDS: NITROGLYCERIN SL 0.4 MG/TAB TAB SL STA (06:16)
[2024-07-10] MEDS: ALBUMIN 25% 12.5 GM/50 ML VIAL IV ONE (06:16)
[2024-07-10] MEDS ORDERED: PROMETHAZINE 6.25 MG/50.25 ML BAG IV PRN (06:29)
[2024-07-10 07:42] LABS: C Reactive Protein 0.74 mg/dl (0-0.5)
[2024-07-10] MEDS: traMADol HCL 50 MG TABLET PO PRN (07:44)
[2024-07-10 08:14] LABS: Troponin I High Sensitivity 60.3 pg/ml (0-14)
[2024-07-10] MEDS: OPTIRAY 320 125ml IV ONE (08:28)
[2024-07-10] MEDS ORDERED: DEXTROSE 50% 50 ML SYRINGE IV PRN (08:38)
[2024-07-10] MEDS ORDERED: CARBOHYDRATES FOR HYPOGLYCEMIA PO PRN (08:38)
[2024-07-10] MEDS ORDERED: GLUCOSE 40% GEL 15 GM TUBE PO PRN (08:38)
[2024-07-10] MEDS ORDERED: GLUCAGON FOR INJ 1 MG VIAL SQ PRN (08:38)
[2024-07-10] MEDS ORDERED: GLUCOSE 10 TAB/TUBE PO PRN (08:38)
--- NOTE | 2024-07-10 08:53 | CT Scan Report ---
CT angio chest PE protocol CT DOSE: 1700.86 mGy.cm HISTORY: 38 years-old Female with cp. Acute chest pain in a patient with renal failure and schedule d dialysis TECHNIQUE: Multiple CTA images of the chest were obtained after the intravenous administration of 120 ml Optiray. Coronal and sagittal MIPS were obtained from the axial data set and were submitted for review. All measurements were obtained according to NASCET criteria. A dose lowering technique was u tilized adhering to the principles of ALARA. COMPARISON: Chest radiograph of same day, CTA chest 04/20/2024 FINDINGS: CTA: Moderate cardiomegaly with extensive coronary artery calcifications. No thoracic aortic aneurysm. No pulmonary emboli are identified, however there is suboptimal visualization of the segmental and subse gmental branches. The contrast injections within the left upper extremity. There are numerous opacifi ed venous collaterals again seen within the left chest wall predominantly. There is a left brachiocep halic stent graft which demonstrates high-grade stenosis on image 151 series 4, unchanged from prior with chronic linear stranding extending into the brachiocephalic SVC confluence. Additionally, there is a patent graft within the right clavicular distribution. CT CHEST: Unremarkable thyroid. Mildly enlarged mediastinal and hilar lymph nodes are unchanged. No pneumothora x, pleural effusion or lobar airspace consolidation. No suspicious pulmonary nodules or masses. Minim al bibasilar atelectasis. Central airways are patent. No acute upper abdominal abnormality. Probable shunting within the left hepatic lobe adjacent to the falciform ligament. No acute fracture. IMPRESSION: 1. No pulmonary emboli identified. 2. Cardiomegaly without definite pulmonary edema or pleural effusion. 3. High-grade stenosis is again noted involving the left brachiocephalic venous graft resulting in nu merous chest wall collaterals. This limits the contrast bolus to the pulmonary artery, limiting the s tudy. 4. Unchanged borderline enlarged mediastinal and hilar lymphadenopathy. ACT 112: Negative or not required by law. The above report was generated using voice recognition software. It may contain grammatical, syntax o r spelling errors. Electronically signed by: Cristhian Copeland M.D. 07/10/2024 8:51 AM
[2024-07-10] MEDS ORDERED: B COMPLEX VITAMIN C FOLIC ACID 0.8 MG PO SCH (09:00)
[2024-07-10] MEDS: INSULIN ASPART PER UNIT CHARGE SC SCH (09:06)
[2024-07-10] MEDS: buPROPion XL 150 MG TABCR PO SCH (09:52)
[2024-07-10] MEDS: METOPROLOL SUCC 25MG EXT REL TAB PO SCH (09:52)
[2024-07-10] MEDS: GABAPENTIN 100 MG CAP PO SCH (09:52)
[2024-07-10] MEDS: ROSUVASTATIN CALCIUM 20 MG TAB PO SCH (09:52)
[2024-07-10] MEDS: ASPIRIN 81 MG ECTAB PO SCH (09:53)
[2024-07-10] MEDS: FLUTICASONE/VILANTEROL 100/25MCG 14 PUFFS/INHALER INH SCH (09:53)
[2024-07-10] MEDS: CLOPIDOGREL BISULFATE 75 MG TAB PO SCH (09:53)
--- NOTE | 2024-07-10 10:23 | Electrocardiogram Report ---
Test Reason : Blood Pressure : */* mmHG Vent. Rate : 89 BPM Atrial Rate : 89 BPM P-R Int : 158 ms QRS Dur : 100 ms QT Int : 426 ms P-R-T Axes : 25 -47 34 degrees QTcB Int : 518 ms Normal sinus rhythm Left anterior fascicular block Old Anteroseptal infarct (cited on or before 21-Mar-2018) Old Lateral infarct (cited on or before 21-Mar-2018) Prolonged QT Abnormal ECG When compared with ECG of 29-Jun-2024 22:19, No significant change was found Confirmed by Balbir Meek ([id number]) on 07/10/2024 10:23:09 AM Referred By: REFERRED SELF Confirmed By: Balbir Meek
[2024-07-10] MEDS: MoRPHine SULFATE 2 MG/ML CARP IV STA (10:26)
--- NOTE | 2024-07-10 10:55 | Nephrology Consultation ---
Date of Consultation July 10, 2024 Assessment & Plan (1) ESRD (end stage renal disease) on dialysis: 38/F with ESRD on HD--MWF but with major h/o Non compliance. Currently has Rt UE avf which is being used. had recent Fistulogram and says it is working fine. will do 4 hrs and try to take 4 kilo. We will also use ativan for Anxiety so she can stay for full 4 hrs. Always has some degree of CHF and hopefully will be better after Dialysis. heparin and Epo will be given She is on Liquid diet but will still give her the regular phoslo. Also no GI symptoms now so can be changed to reg renal diet. labs reviewed--hgb is just under 10 so will give epo K and na stable. high BUN and high Creat from ESRD--should come down with dialysis (2) Chest pain: Complex history with multiple admissions and procedures noted. It appears no acute intervention needed now. Now chest pain free History of Present Illness Attending Physician: Meryl Linares MD History of Present Illness 38/F with ESRD on HD--MWF but with major h/o Non compliance. She was admitted just now after presenting with chest pain. Multiple recent admission for Chest pain. PMH includes 05/07/24 L heart cath w/ urgent distal R coronary artery stent and severe multivessel coronary disease on aspirin and plavix, also s/p LAD stent 05/2024; TTE w/ HF/ hypokinesis (EF 35%); hx large bleeding hemorrhoids, DM2, HTN, GERD, hx of failed renal transplant, bipolar disorder/anxiety, restless leg syndrome; hx of acute thrombosis of brachiocephalic vein, s/p recent pelvic fracture (second one / likely related to renal osteodystrophy) causing her pain and limiting ambulation. She is frequently nonadherent to OP treatments due to uncontrolled anxiety and/or other psychosocial issues. At this point no chest pain. She had Some nausea and ? Vomiting ealrier so is on Liquid diet. cards already decided no Intervention needed. Physical Exam Physical Exam: GENERAL: Comfortable, obese, looks older than stated age, no respiratory distress SKIN: Pallor, warm NECK : Supple, short neck, no tenderness CHEST : Decreased breath sounds, no tenderness HEART : RRR, no obvious murmurs ABDOMEN: Some distention, nontender EXTREMITIES : No edema, upper extremity AVF with RT UE being used Currently. Allergies Allergy/AdvReac Type Severity Reaction Status Date / Time cefaclor Allergy Intermediate Rash Verified 06/25/24 10:45 Cephalosporins Allergy Intermediate Rash Verified 06/25/24 10:45 amoxicillin AdvReac Intermediate VOMITING Verified 06/25/24 10:45 clavulanic acid AdvReac Intermediate VOMITING Verified 06/25/24 10:45 Home Medications Medication Instructions Recorded Confirmed Type albuterol sulfate 2.5 mg/3 mL 2.5 mg inhalation Q4H PRN 06/08/23 07/10/24 History (0.083 %) solution for nebulization Shortness Of Breath Or Wheezing albuterol sulfate 90 mcg/actuation 2 puff inhalation Q6H PRN 06/08/23 07/10/24 History aerosol inhaler Shortness Of Breath Or Wheezing carbamazepine 200 mg tablet 200 mg PO AMPM 06/08/23 07/10/24 History hydroxyzine HCl 25 mg tablet 25 mg PO Q6H PRN Anxiety 06/08/23 07/10/24 History lorazepam 0.5 mg tablet 0.5 mg PO Q8 PRN Anxiety 06/08/23 07/10/24 History mometasone-formoterol HFA 200 2 puff inhalation BID 06/08/23 07/10/24 History mcg-5 mcg/actuation aerosol inhaler (Dulera) vitamin B complex-vitamin C-folic 1 tab PO DAILY 06/08/23 07/10/24 History acid 0.8 mg tablet (Renal-Rika) benzonatate 100 mg capsule 200 mg PO TID PRN Cough 08/29/23 07/10/24 History calcium acetate(phosphat bind) 667 2,001 mg PO UD 08/29/23 07/10/24 History mg capsule cinacalcet 90 mg tablet 90 mg PO QDD 08/29/23 07/10/24 History medroxyprogesterone 150 mg/mL 150 mg IM UD 08/29/23 07/10/24 History intramuscular suspension (Depo-Provera) lidocaine 5 % topical ointment 1 applic topical QID PRN pain #30 04/11/24 07/10/24 Rx grams bupropion HCl 150 mg 24 hr tablet, 150 mg PO QAM 04/17/24 07/10/24 History extended release mirtazapine 7.5 mg tablet 7.5 mg PO HS 04/17/24 07/10/24 History varenicline 0.5 mg tablet 0.5 mg PO DAILY #30 tabs 04/30/24 07/10/24 Rx aspirin 81 mg tablet,delayed 81 mg PO QAM #30 tabs 05/09/24 07/10/24 Rx release clopidogrel 75 mg tablet 75 mg PO QAM #30 tabs 05/09/24 07/10/24 Rx metoprolol succinate 25 mg 25 mg PO BID #60 tabs 05/09/24 07/10/24 Rx tablet,extended release 24 hr rosuvastatin 20 mg tablet 20 mg PO QAM #30 tabs 05/09/24 07/10/24 Rx gabapentin 100 mg capsule 200 mg (2 x 100 mg) PO TID #180 05/10/24 07/10/24 Rx caps pantoprazole 40 mg tablet,delayed 40 mg PO BID #60 tabs 05/10/24 07/10/24 Rx release Patient History Medical History Mood disorder Anxiety disorder, unspecified Abnormal chest xray Elevated lactic acid level Transaminitis Pneumonia Metabolic encephalopathy Acute non-ST elevation myocardial infarction (NSTEMI) Pulmonary edema Acute hyperkalemia Acute alteration in mental status Renal failure (ARF), acute on chronic Encephalopathy Facial fracture GI bleed ESRD (end stage renal disease) on dialysis Symptomatic anemia Tobacco abuse DVT prophylaxis Fistula right arm (currently being used) and left arm Dialysis patient SATURDAY/SAT/SATURDAY AT [facility] GERD (gastroesophageal reflux disease) Bipolar disorder Restless leg syndrome Peripheral neuropathy Asthma rare res inh use History of abnormal cervical Papanicolaou smear Elevated troponin Acute electrocardiogram changes Surgical History H/O eye surgery LASER SURGERY LEFT History of surgery left arm d/t clot in arm from AV fistula use @ [facility] History of surgery (~09/09/20) perm cath > since removed History of colonoscopy Kidney transplant recipient 2013 AT [facility] History of tooth extraction three TOOTH History of cardiac cath 2016 NO STENTS AVF (arteriovenous fistula) bilat upper arms ---currently using right for dialysis Family History Grandmother Hx of CABG Mother Diabetes Father Crohn's disease Grandfather (Maternal) Diabetes Uncle Diabetes Grandmother (Maternal) Family history of reaction to anesthesia difficulty waking with colonoscopy Social History Smoking Status: Former smoker Tobacco Type: Cigarettes Cigarettes Per Day: 20; Second Hand Exposure: Yes (on occasion); Do You Dip or Chew Tobacco: No; Hx Alcohol Use: Yes Alcohol type: hard liquor Alcohol Intake Frequency Comment: q3 months Hx Substance Use: No Preferred Language: Northern Irish Communication Ability: Effective Digital Asset Manager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 Beliefs That Will Affect Care: None marital status: Single Current Living Situation: Family Current Living Situation Comment: grandparents How many Children do You have: 3 Feels Safe at Home: Yes Assistive Devices: Glasses Results & Data Vital Signs (Past 12 Hours) Vital Signs Temp Pulse Pulse Resp BP BP Pulse Ox 07/10/24 09:49 36.8 C 85 18 131/80 100 07/10/24 09:03 81 16 118/79 98 07/10/24 07:11 36.5 C 85 16 93/55 L 98 07/10/24 07:02 86 16 97/62 L 97 07/10/24 06:33 84 17 99/72 L 96 07/10/24 06:00 85 20 100/79 99 07/10/24 05:33 85 19 118/58 L 97 07/10/24 05:03 84 18 97/62 L 97 07/10/24 04:15 86 14 156/89 H 98 07/10/24 03:49 89 20 110/77 97 07/10/24 03:49 97 07/10/24 03:49 36.6 C 89 20 110/77 97 07/10/24 03:47 87 O2 Del Method 07/10/24 09:49 Room Air 07/10/24 09:03 Room Air 07/10/24 07:11 Room Air 07/10/24 07:02 Room Air 07/10/24 06:33 07/10/24 06:00 07/10/24 05:33 07/10/24 05:03 07/10/24 04:15 07/10/24 03:49 Room Air 07/10/24 03:49 Room Air 07/10/24 03:49 Room Air 07/10/24 03:47 Laboratory Results CBC, renal panel, cardiac enzymes reviewed. Diagnostic Findings CXR and CT chest reviewed--Some CHF
--- NOTE | 2024-07-10 11:00 | Cardiology Consultation ---
Date of Consultation July 10, 2024 Assessment & Plan (1) Chest pain at rest: (2) Atypical chest pain: (3) Premature coronary artery disease: (4) Stented coronary artery: (5) Dyslipidemia, goal LDL below 70: (6) HTN, goal below 130/80: (7) ESRD (end stage renal disease) on dialysis: Plan Complex 38-year-old female admitted for evaluation of nausea and vomiting, chronic atypical chest discomfort. Patient with end-stage renal disease with recently missed dialysis session on Saturday. Elevated troponin concentration appears to be in the absence of an acute coronary syndrome with history suggesting noncardiac etiology noting aggravation of discomfort when lying on le ft side. EKG without acute change. Imaging of the chest without acute cardiopulmonary abnormality. bean snapper benign thus far. Recommend aggressive cardiac medical management including continuation of dual antiplatelet therapy with aspirin and clopidogrel, guideline directed therapy with metoprolol succinate. Unless contraindicated from a renal standpoint would recommend addition of low-dose losartan noting ischemic cardiomyopathy (EF 40 to 44% in April 2024). No significant valvular observed on recent resting echocardiogram. Volume controlled via hemodialysis. Recommend switching rosuvastatin to atorvastatin 40 mg/day noting end-stage renal disease on hemodialysis, LDL cholesterol goal less than 55 mg/dL. Supervising Physician Co-Signing Physician Notes Full assessment and plan as well outlined above. Care and management of advanced provider personally discussed and endorsed 38-year-old female with known coronary disease status post acute coronary revascularization April 2024. Presented with severe pain without features of angina this admission No EKG changes Troponins mildly elevated but flat without any evolution to suggest ischemia or injury. Plan as outlined above History of Present Illness Reason for Consultation: Chest pain, history of coronary artery disease Requesting Physician: [facility], Dr. Cunningham Attending Physician: Dr. Meryl Linares MD History of Present Illness Alexandra Arguello is a complex 38-year-old female who is being seen today at the request of Dr. Cunningham, evaluation of chest discomfort. Patient notes ongoing chest discomfort over the last week, sharp and throbbing mid to lower sternal discomfort that is aggravated by laying on her left side. Missed dialysis on Saturday. Patient notes feeling unwell yesterday with upset stomach, experiencing episodes of nausea and vomiting last evening and into this morning, presenting to the [facility] ER for further evaluation. EKG in the ER was without acute ST segment change. High-sensitivity troponin mildly elevated (58.2 -> 60.3 pg/ml). Creatinine 7.5. Hemoglobin 9.8. Imaging of the chest included chest x-ray and chest CTA, without pulmonary emboli, pulmonary edema, or pleural effusion. Telemetry monitoring thus far with sinus rhythm in the 80s. Patient compliant with cardiac medications. Tobacco free x 3 months. Past Medical and Surgical History: History of FSGS, failed renal transplant, end-stage renal disease on hemodialysis, with known noncompliance and frequently missed treatments ASCVD * January 26, 2017 Coronary Angiography [place] [place] Velasquez): The coronary arteries are angiographically normal. The left ventricular end-diastolic pressure is normal. Very poor pain tolerance noted. Possible drug-seeking behavior. During "06/04" chest pain on floor patient was observed to be calmly working on a crossword puzzle. Mildly dilated LV with mild diffuse global hypokinesis, EF 50%. * May 07, 2020 for acute coronary syndrome, coronary angiography by Dr. Britton at [facility] revealing severe multivessel coronary artery disease with 100% mid LAD total occlusion with distal vessel filling via left to left and right to left collaterals, 100% ostial occlusion of the first diagonal branch filling partially via left to left collaterals, 95% calcified bifurcation lesion in the distal RCA into the BAV and 98% ostial RPDA stenosis. Status post successful PCI of the distal RCA into the right posterior AV branch with a single drug-eluting stent. Angioplasty of the ostial RPDA prior to stenting with multiple balloon and attempted intravascular lithotripsy, unable to pass stent across calcified ostium. Post procedure with jailed PDA with severe residual ostial stenosis but AIDA-3 flow. * June 09, 2024 Coronary Angiography ([facility] [place]. Mcgowan): Hemodynamically significant coronary artery disease. Mid LAD with 100% chronic total occlusion with bridging collaterals. 60 to 70% first obtuse marginal stenosis. Widely patent distal RCA stent. 70% ostial stenosis of the RPDA with AIDA III flow. Status post PCI of the LAD occlusion with a 2.75 x 38 mm Synergy drug-eluting stent with excellent angiographic result. Systolic congestive heart failure, NYHA class III, ischemic cardiomyopathy, LVEF 40 to 44% Hypertension Dyslipidemia Type 2 diabetes mellitus Anemia of chronic disease Bipolar disorder GERD Bleeding hemorrhoids Anxiety and depression History of tobacco abuse, recently reformed Family History: Father committed suicide. Mother is alive without cardiac issues. Brother at 19 months, congenital heart disease, bleeding issues. Maternal grandmother had congenital heart disease, details unknown. Sister w ithout cardiac issues Social History: Reformed smoker having quit in April 2024. No significant alcohol. THC Gummies. Disabled. Two children without cardiac issues. . Allergies Allergy/AdvReac Type Severity Reaction Status Date / Time cefaclor Allergy Intermediate Rash Verified 06/25/24 10:45 Cephalosporins Allergy Intermediate Rash Verified 06/25/24 10:45 amoxicillin AdvReac Intermediate VOMITING Verified 06/25/24 10:45 clavulanic acid AdvReac Intermediate VOMITING Verified 06/25/24 10:45 Home Medications Medication Instructions Recorded Confirmed Type albuterol sulfate 2.5 mg/3 mL 2.5 mg inhalation Q4H PRN 06/08/23 07/10/24 History (0.083 %) solution for nebulization Shortness Of Breath Or Wheezing albuterol sulfate 90 mcg/actuation 2 puff inhalation Q6H PRN 06/08/23 07/10/24 History aerosol inhaler Shortness Of Breath Or Wheezing carbamazepine 200 mg tablet 200 mg PO AMPM 06/08/23 07/10/24 History hydroxyzine HCl 25 mg tablet 25 mg PO Q6H PRN Anxiety 06/08/23 07/10/24 History lorazepam 0.5 mg tablet 0.5 mg PO Q8 PRN Anxiety 06/08/23 07/10/24 History mometasone-formoterol HFA 200 2 puff inhalation BID 06/08/23 07/10/24 History mcg-5 mcg/actuation aerosol inhaler (Dulera) vitamin B complex-vitamin C-folic 1 tab PO DAILY 06/08/23 07/10/24 History acid 0.8 mg tablet (Renal-Rika) benzonatate 100 mg capsule 200 mg PO TID PRN Cough 08/29/23 07/10/24 History calcium acetate(phosphat bind) 667 2,001 mg PO UD 08/29/23 07/10/24 History mg capsule cinacalcet 90 mg tablet 90 mg PO QDD 08/29/23 07/10/24 History medroxyprogesterone 150 mg/mL 150 mg IM UD 08/29/23 07/10/24 History intramuscular suspension (Depo-Provera) lidocaine 5 % topical ointment 1 applic topical QID PRN pain #30 04/11/24 07/10/24 Rx grams bupropion HCl 150 mg 24 hr tablet, 150 mg PO QAM 04/17/24 07/10/24 History extended release mirtazapine 7.5 mg tablet 7.5 mg PO HS 04/17/24 07/10/24 History varenicline 0.5 mg tablet 0.5 mg PO DAILY #30 tabs 04/30/24 07/10/24 Rx aspirin 81 mg tablet,delayed 81 mg PO QAM #30 tabs 05/09/24 07/10/24 Rx release clopidogrel 75 mg tablet 75 mg PO QAM #30 tabs 05/09/24 07/10/24 Rx metoprolol succinate 25 mg 25 mg PO BID #60 tabs 05/09/24 07/10/24 Rx tablet,extended release 24 hr rosuvastatin 20 mg tablet 20 mg PO QAM #30 tabs 05/09/24 07/10/24 Rx gabapentin 100 mg capsule 200 mg (2 x 100 mg) PO TID #180 05/10/24 07/10/24 Rx caps pantoprazole 40 mg tablet,delayed 40 mg PO BID #60 tabs 05/10/24 07/10/24 Rx release Patient History Medical History Mood disorder Anxiety disorder, unspecified Abnormal chest xray Elevated lactic acid level Transaminitis Pneumonia Metabolic encephalopathy Acute non-ST elevation myocardial infarction (NSTEMI) Pulmonary edema Acute hyperkalemia Acute alteration in mental status Renal failure (ARF), acute on chronic Encephalopathy Facial fracture GI bleed ESRD (end stage renal disease) on dialysis Symptomatic anemia Tobacco abuse DVT prophylaxis Fistula right arm (currently being used) and left arm Dialysis patient SATURDAY/SAT/SATURDAY AT [facility] GERD (gastroesophageal reflux disease) Bipolar disorder Restless leg syndrome Peripheral neuropathy Asthma rare res inh use History of abnormal cervical Papanicolaou smear Elevated troponin Acute electrocardiogram changes Surgical History H/O eye surgery LASER SURGERY LEFT History of surgery left arm d/t clot in arm from AV fistula use @ [facility] History of surgery (~09/09/20) perm cath > since removed History of colonoscopy Kidney transplant recipient 2014 AT [facility] History of tooth extraction three TOOTH History of cardiac cath 2017 NO STENTS AVF (arteriovenous fistula) bilat upper arms ---currently using right for dialysis Family History Grandmother Hx of CABG Mother Diabetes Father Crohn's disease Grandfather (Maternal) Diabetes Uncle Diabetes Grandmother (Maternal) Family history of reaction to anesthesia difficulty waking with colonoscopy Social History Smoking Status: Former smoker Tobacco Type: Cigarettes Cigarettes Per Day: 20; Second Hand Exposure: Yes (on occasion); Do You Dip or Chew Tobacco: No; Hx Alcohol Use: Yes Alcohol type: hard liquor Alcohol Intake Frequency Comment: q3 months Hx Substance Use: No Preferred Language: Lithuanian Communication Ability: Effective Supervisor Silvering Department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 Beliefs That Will Affect Care: None marital status: Single Current Living Situation: Family Current Living Situation Comment: grandparents How many Children do You have: 3 Feels Safe at Home: Yes Assistive Devices: Glasses Review of Systems Review of Systems: Complete Review of Systems is as stated above, negative, or noncontributory. Physical Exam Physical Exam: General: A&Ox3. NAD. HENT: Normocephalic. Atraumatic. Eyes: PER. Conjunctiva pink, sclera clear. Neck: No carotid bruits. No JVD. Heart: RRR, 76 bpm. No murmur. Lungs: Clear to auscultation. Abdomen: +BS. Soft. Nontender. No masses or organomegaly. Extremities: Bilateral upper extremity fistulas. No lower extremtiy edema. No cyanosis. No clubbing. Limited neurological examination is without focal deficits. Pulses: Posterior tibial=1/4. Results & Data Vital Signs (Past 12 Hours) Vital Signs Temp Pulse Pulse Resp BP BP Pulse Ox 07/10/24 09:49 36.8 C 85 18 131/80 100 07/10/24 09:03 81 16 118/79 98 07/10/24 07:11 36.5 C 85 16 93/55 L 98 07/10/24 07:02 86 16 97/62 L 97 07/10/24 06:33 84 17 99/72 L 96 07/10/24 06:00 85 20 100/79 99 07/10/24 05:33 85 19 118/58 L 97 07/10/24 05:03 84 18 97/62 L 97 07/10/24 04:15 86 14 156/89 H 98 07/10/24 03:49 89 20 110/77 97 07/10/24 03:49 97 07/10/24 03:49 36.6 C 89 20 110/77 97 07/10/24 03:47 87 O2 Del Method 07/10/24 09:49 Room Air 07/10/24 09:03 Room Air 07/10/24 07:11 Room Air 07/10/24 07:02 Room Air 07/10/24 06:33 07/10/24 06:00 07/10/24 05:33 07/10/24 05:03 07/10/24 04:15 07/10/24 03:49 Room Air 07/10/24 03:49 Room Air 07/10/24 03:49 Room Air 07/10/24 03:47 Laboratory Results Cardiac Enzymes 07/10/24 07/10/24 Range/Units 04:22 07:06 AST 16 (13-39) U/L Troponin I High Sens 58.2 H* 60.3 H* (0-14) pg/ml Coagulation 07/10/24 Range/Units 04:22 PT 11.1 (9.0-12.0) Seconds CBC 07/10/24 Range/Units 04:22 WBC 4.33 L (4.8-10.8) K/ul RBC 2.96 L (4.20-5.40) M/uL Hgb 9.8 L (12.0-16.0) g/dl Hct 30.7 L (37.0-47.0) % Plt Count 121 L (130-400) K/uL Neut # (Auto) 3.23 (1.40-6.50) K/uL Lymph # (Auto) 0.56 L (1.20-3.40) K/uL [place] # (Auto) 0.44 (0.11-0.59) K/uL Eos # (Auto) 0.06 (0.00-0.50) K/uL Baso # (Auto) 0.01 (0.00-0.20) K/uL Comprehensive Metabolic Panel 07/10/24 Range/Units 04:22 Sodium 138 (136-145) mmol/L Potassium 4.5 (3.5-5.1) mmol/L Chloride 89 L (98-107) mmol/L Carbon Dioxide 33 H (21-32) mmol/L BUN 42 H (6-23) mg/dl Creatinine 7.50 H* (0.6-1.2) mg/dl Glucose 127 H (70-99(Fasting)) mg/dl Calcium 10.7 H (8.6-10.3) mg/dl AST 16 (13-39) U/L ALT 9 (7-52) U/L Alkaline Phosphatase 116 H (34-104) U/L Total Protein 6.7 (6.0-8.3) gm/dl Albumin 4.4 (3.4-5.0) gm/dl Intake and Output 07/09/24 07/10/24 07/10/24 22:59 06:59 14:59 Intake Total 100 / 100 50 / 50 Balance 100 / 100 50 / 50 Intake: IV 100 / 100 50 / 50 Acetaminophen 1,000 mg In 100 100 / 100 ml @ 400 mls/hr IV NOW STA Rx#: [id number] Albumin 25% 12.5 gm In 50 ml @ 50 / 50 50 mls/hr IV ONE ONE Rx#: [id number] Other: Weight 81.9 kg 78.67 kg Weight Measurement Method Built in Bedscale Standing Scale Patient Weight 07/11/24 06:59 Weight 78.67 kg
[2024-07-10] MEDS: CALCIUM ACETATE 667 MG CAP/TAB PO SCH (11:57)
--- NOTE | 2024-07-10 11:58 | Communication Note ---
Date of Service: July 10, 2024 Patient was seen while having dialysis. Was having chest pain earlier in the day, relieved by 1 mg morphine Also evaluated by cardiology. Did not note any ischemic changes. No anticipated procedures at this time. Patient having dialysis today Continue to monitor on telemetry
[2024-07-10] MEDS: LORazepam 0.5 MG TAB PO PRN (12:35)
--- OUTSIDE RECORDS SUMMARY | 2024-07-10 15:02 | External Medical Summary | Summary of Care ---
Author Name Unknown Organization [facility] Address [address] [place] [address] Phone [phone] Care Team Providers Care Small Arms Artillery Repairer Name Role Phone Adolph Aldridge MD Primary Care Provider [phone] Encounter Details Date Type Department Care Team (Late st Contact Info) Description 07/02/2024 Population Health External Data Unspecified Department Allergies Active Allergy Reactions Criticality Noted Date Comments Amoxicillin Low 01/27/2021 Other reaction(s): VOMITING Cefaclor Rash Low 11/23/2011 Cephalosporins Rash Low 05/16/1999 documented as of this encounter (statuses as of 07/02/2024) Medications Medication Sig Dispensed Refills Start Date [...] 24 Tablet 03/14/2022 Active OneTouch Delica Plus [id number] ns:DM type 2 with diabetic peripheral neuropathy (HCC),Type 2 diabetes mellitus with hemoglobin A1c goal of less than 7.0% ([facility]) use 1 LANCET to TEST BLOOD SUGAR [...] NEEDED FOR ANXIETY 02/12/2024 Active Dexcom G7 Disaster Director Device USE DAILY TO CHECK BLOOD SUGARS [...] twice daily 60 Tablet 2 06/05/2024 Active medroxyPROGESTERon e Acetate 150 MG/ML Intramuscular Suspension Prefilled Syringe (Depo-Provera) INJECT 150 MG INTRAMUSCULARLY (INTO A LARGE MUSCLE) ONCE EVERY 3 MONTHS 1 mL 06/26/2024 Active documented as of this encounter (statuses as of 07/02/2024) Active Problems Problem Noted Date Diagnosed Date Chronic total occlusion of coronary artery 06/09 S/P primary angioplasty with coronary stent 04/27 Bleeding hemorrhoids 05/21/2024 Coronary artery disease involving united [place] coronar y artery 05/21/2024 HFrEF (heart failure [...] as of this encounter (statuses as of 07/02/2024) Resolved Problems Problem Noted Date Diagnosed Date [...] and PP sugars <120. Report levels to [facility] department weekly. 10. Advised patient [...] as of this encounter (statuses as of 07/02/2024) Immunizations Name Administration Dates Next Due COVID-19 [...] Team (Late st Contact Info) Description 07/07/2024 10:20 AM EST Office Visit [facility] [address] [place] [address] Adolph Aldridge MD [address] [place] [address] 07/14/2024 3:30 PM EST Office Visit Orthopaedics [facility] [address] [place] [address] Ary Rowe MD [address] [place] [address] 09/01/2024 1:40 PM EST Office Visit [facility] [address] [place] [address] Adolph Aldridge MD [address] [place] [address] 10/19/2024 10:00 AM EST Office Visit Cardiology, [facility] [address] [place] [address] Farooq Ross, DO [address] [facility] [place] [address] 04/01/2025 2:40 PM EDT Telemedicine Neurology [address] [place] [address] Eros Marks, DO [address] [place] [facility] [place] [address] Scheduled Procedures Name Priority Associated Diagnoses [...] this encounter Medical Devices Implanted Type Area Cafeteria Clerk Device Identifier Shelf Expiration Date Model / Serial / Lot Stent Protege Gps [id number] - [id number] Implanted:Qty : 1 on 09/29/2020 by Carmelo Ramos MD at OR [facility] Left: Chest [employer] : VASCULAR [id number] 09/20/2022 [id number] / / [id number] Stent Viab [id number] - [id number] Implanted:Qty : 1 on 04/16/2023 by Carmelo Ramos MD at OR [facility] [place] Right: Subclavian [employer] [id number] 01/26/2026 [id number] / [id number] / [id number] Stent Synergy Xd Mr [id number] - [id number] Implanted:Qty : 1 on 06/09/2024 by Diamond Mcgowan MD at CARDIAC LABS [facility] [place] [employer] [id number] 01/21/2026 [id number] / / [id number] documented as of this encounter Advance Directives [...] Advance Directives occurred with: Patient Care Teams Small Arms Artillery Repairer Relationship Specialty Start Date End Date Adolph Aldridge MD [address] [place] [address] PCP - General Family Medicine 10/21/18 documented as of this encounter
--- OUTSIDE RECORDS SUMMARY | 2024-07-10 15:02 | External Medical Summary | Summary of Care ---
Author Name Unknown Organization [facility] Address [address] [place] [address] Phone [phone] Care Team Providers Care Guide Changer Name Role Phone Evi Aldridge MD Primary Care Provider [phone] Reason for Visit * Reason Onset Date Comments Medication Refill 07/03/2024 Encounter Details Date Type Department Care Team (Late st Contact Info) Description 07/03/[address] [facility] [address] [place] [address] Evi Aldridge MD [address] [place] [address] Chronic cough Allergies Active Allergy Reactions Criticality Noted Date Comments Amoxicillin Low 01/27/2021 Other reaction(s): VOMITING Cefaclor Rash Low 11/23/2011 Cephalosporins Rash Low 05/16/1999 documented as of this encounter (statuses as of 07/06/2024) Medications Calcium Acetate (Phos Binder) 667 MG Oral Capsule (Phoslo) Take 3 Caps by mouth three times a day with meals. 270 Cap 3 11/04/19 21 Active Renal Vitamin 0.8 MG Oral Tablet Take 1 Tablet by mouth daily. 08/10/20 20 Active Compressor NebulizerIndicat ions:Mild intermittent asthma with exacerbation Inhale via nebulizer. 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 24 Tablet 03/14/20 22 Active OneTouch Delica Plus [id number] ions:DM type 2 with diabetic peripheral neuropathy (HCC),Type 2 diabetes mellitus with hemoglobin A1c goal of less than 7.0% (HCC) use 1 LANCET to TEST BLOOD SUGAR four times a day. 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 1 hour before the first meal of the day. 90 Capsule 3 08/29/19 23 Active LORazepam 0.5 MG Oral Tablet (Ativan)Indicati ons:Panic attack TAKE 1 TABLET BY MOUTH EVERY [...] mouth daily with dinner 30 Tablet 11 4 3:19 PM EDT 08/16/20 23 Active Mirtazapine 7.5 MG Oral Tablet (Remeron) Take 1 Tablet by mouth at bedtime. Active Albuterol Sulfate HFA 108 (90 Base) MCG/ACT Inhalation Aerosol SolutionIndicati ons:Chronic cough,Upper respiratory tract infection, unspecified type Inhale 2 Puffs by mouth every 4 hours as needed for Wheezing. 18 g 6 12/24/19 24 Active Dexcom G7 SensorIndication s:Type 2 diabetes mellitus with hemoglobin A1c goal of less than 7.0% ([facility]) Use to check sugars continuously. E 11.9 change every 10 days 3 Each 01/06/20 24 Active hydrOXYzine HCl 25 MG Oral Tablet TAKE 1 TABLET BY MOUTH EVERY 6 HOURS NEEDED FOR ANXIETY 02/12/20 24 Active Dexcom G7 Advertising Operations Coordinator Device USE DAILY TO CHECK BLOOD [...] Oral Tablet Extended Release 24 Hour (Wellbutrin XL)Indications:D epression with anxiety Take 1 Tablet by [...] the morning. 30 Tablet 05/23/20 24 Active Varenicline Tartrate 1 MG Oral Tablet (Chantix)Indicat ions:Tobacco use Take 1 tablet by mouth twice daily 60 Tablet 2 06/05/20 24 Active medroxyPROGESTER one Acetate 150 MG/ML Intramuscular Suspension Prefilled Syringe (Depo-Provera) INJECT 150 MG INTRAMUSCULARLY (INTO A LARGE MUSCLE) ONCE EVERY 3 MONTHS 1 mL 06/26/20 24 Active Benzonatate 100 MG Oral CapsuleIndicatio ns:Chronic cough Take 2 Capsules by mouth 3 times a day as needed for Cough. 30 Capsule 1 07/06/20 24 Active Benzonatate 100 MG Oral CapsuleIndicatio ns:Chronic cough Take 2 Capsules by mouth 3 times a day as needed for Cough. 30 Capsule 1 12/19/19 24 024 Disconti nued(Ref ill) documented as of this encounter (statuses as of 07/06/2024) Active Problems Problem Noted Date Diagnosed Date Chronic total occlusion of coronary artery 06/09 S/P primary angioplasty with coronary stent 04/27 Bleeding hemorrhoids 05/21/2024 Coronary artery disease involving [place] coronar y artery 05/21/2024 HFrEF (heart failure [...] A1c goal of less than 7.0% 06/23/2009 Overview (12/20/2015): Per Diabetes Taxonomy. 03/19/11 Will resume checking [...] as of this encounter (statuses as of 07/06/2024) Resolved Problems Problem Noted Date Diagnosed Date [...] control in clinical research program 09/15/2012 10/07/2012 Overview (12/12/2020): Diagnosis changed due to Research Module. Go to Snapshot for study details. Iron deficiency anemia 07/24/201204/21 Overview (05/27/2017): ICD-10 update of inactive term Kidney disease, chronic, sta ge IV (GFR 15-29 ml/min) 07/08/2012 04/21/2014 Supervision of other high-risk 04/26/2011 04/26/2011 Overview (11/29/2015): ICD-10 update of inactive term Supervision of other high-risk 04/18/2011 01/28/2017 Overview (11/29/2015): DISCUSSION/RECOMMENDATIONS: Encounter Diagnoses Code Name Primary? 250.40 [...] and PP sugars <120. Report levels to [facility] department weekly. 10. Advised patient that Glyburide, Metformin, and insulin may be safely used during for the control of blood sugar levels. Alexandra will begin her insulin therapy today. 11. Dietary consult to be done to instruct patient on appropriate nutrition and diet to aid in control of blood sugars. 12. Recommend urine culture each trimester. 13. Recommend [facility] ultrasound for limited anatomy at 12-14 weeks, for full anatomy at 18-20 weeks, and for echocardiography at 22-24 weeks. 14. Start testing with twice weekly NST and weekly MATTHEW beginning at 32 weeks or earlier if any evidence of uncontrolled blood sugars, renal abnormalities, or HTN. 15. Recommend [facility] growth ultrasound every 4 weeks [...] if early screen is normal. 5. Recommend [facility] ultrasound for anatomy screen at 20 [...] to S treptococcus, group B 04/03/2011 01/28/2017 Overview (06/08/2011): Urine GBS --- Rx Pen V --- TENA after tx. Obtained 06/07/2011 Marva CURRIE, contaminated patient to repepat OB [facility] 03/19/2011 01/29/20 17 Overview (08/09/2011): 03/19/2011 Needs enrolled in [facility] once MA active. Marva RN- Enrolled 03/27/2011 Marva CURRIE Patient declines due to illness flu vaccine. 06/07/2011 Tami Rodriguez RN Growth scan at 27w: 1275g, which is greater than 90th percentile. MATTHEW 28 Other pre-existing hypertens ion complicating , childbirth, and the puerperium, unspecified as to episode of care 03/19/20112016 Overview (04/26/2011): 03/19/11 -- Was on Lisiopril for HTN. Nifedipine 30 mg xl started at 10 wks Previous delivery, antepartum condition or complication 03/19/2011 01/28/2017 Overview (09/18/2011): Prior C-Sx for macrosomia. Repeat at term. Requests PPTL. scheduled for 11.05.11 tubal consent signed 08/31/2011 Marva CURRIE Severe obesity with body mas s index (BMI) of 35.0 to 39.9 with serious comorbidity 11/21/2009 Overview (06/11/2018): Per Obesity Taxonomy ICD-10 update of inactive diagnosis DM type 2 causing renal disease 06/23/2009 04/09/2014 Overview (04/19/2011): Baseline 24 hour urine = 2.26 gram Urinary frequency 12/14/2008 04/18/2011 Dysuria 12/14/2008 04/18/2011 Urinary tract infection 12/14/200803/27 DM type 2 causing renal disease 02/05/2008 06/23/2009 Overview (06/23/2009): Per Diabetes Taxonomy. INT DERANGEMENT KNEE, LEFT MEDIAL 12/19/2007 04/18/2011 Type 2 diabetes mellitus wit h hemoglobin A1c goal of less than 7.0% 10/25/2006 06/23/2009 Overview (12/20/2015): Per Diabetes Taxonomy. ICD-10 update of inactive term Hypovolemia 10/25/2006 01/25/2007 ACUTE PHARYNGITIS 03/05/2006 01/25/2007 DYSFUNCT EUSTACHIAN TUBE 03/05/200609/2006 Otalgia 03/05/2006 01/25/2007 DISEASE OF NAIL, RIGHT POINTER 10/23/2005 04/18/2011 DERMATITIS ECZEMATOID NEC 10/23/2005 STREP SORE THROAT 08/31/2005 01/25/2007 ACUTE URI NOS 08/31/2005 01/25/2007 Fever and other physiologic disturbances of temperature regulation 08/31/2005 01/25/2007 Overview (11/29/2015): ICD-10 update of inactive term ADVANCE DIRECTIVE INFORMATION 04/23/2005 10/11/2018 Overview (04/23/2005): No, Advance Directive brochure offered , patient declined. HBP , NORMAL FIRST 03/06/2005 10/29/2008 DIABETES-ANTEPARTUM 01/17/2005 01/26/20 07 AC MAXILLARY SINUSITIS, LEFT 12/20/2004 01/25/2007 Acute nasopharyngitis 12/20/20042006 Vertigo 12/20/2004 01/25/2007 Accidental poisoning by [place]-hand tobacco smoke 12/20/2004 04/18/2011 Overview (11/29/2015): ICD-10 update of inactive term Volume depletion 12/20/2004 04/21/2014 HBP , NORMAL FIRST 09/14/2004 10/29/2008 OBESITY, UNSPECIFIED 03/11/2003 010 Overview (11/21/2009): Per Obesity Taxonomy STRAIN OF LEFT KNEE WITH ALEXANDRA PECTED MILD DISLOCATION OF PATELLA 04/14/2002 04/18/2011 PATELLA-FEMORAL DYSFUNCTION 04/14/2002 04/18/2011 FX PHALANX, HAND NOS-CL 12/17/200003/27 HTN, goal below 140/90 04/21 documented as of this encounter (statuses as of 07/06/2024) Immunizations Name Administration Dates Next Due COVID-19 [...] ages 0-17 years) Not on file 05/20/2024 Comments No Sex and Gender Information Value Date Recorded Sex Assigned at Female 06/11/2019 11:08 AM EDT Legal Sex Female 5:57 AM EST Gender Identity Female 06/11/2019 11:08 AM EDT Sexual Orientation Straight 06/11/2019 11 :08 AM EDT Occupation Industry Job Start Date Job End Date unemployed Not on file Not on file Not on file documented as of this encounter Functional Status * Are you deaf or do you have serious difficulty hearing? Answer Date of Assessment Author No 08/30/2023 2:28 AM Angela Haynes RN * Are you blind or do you have serious difficulty seeing, even when wearing glasses? Answer Date of Assessment Author No 08/30/2023 2:28 AM Angela Haynes RN * Do you have serious difficulty walking or climbing stairs? (5 years old or older) Answer Date of Assessment Author Yes 08/30/2023 2:28 AM Angela Haynes RN * Do you have difficulty dressing or bathing? (5 years old or older) Answer Date of Assessment Author No 08/30/2023 2:28 AM Angela Haynes RN * Because of a physical, mental, or emotional condition, do you have difficulty doing errands alone such as visiting a doctors office or shopping? (15 years old or older) Answer Date of Assessment Author Yes 08/30/2023 2:28 AM Angela Haynes RN documented as of this encounter Mental Status * Because of a physical, mental, or emotional condition, do you have serious difficulty concentrating, remembering, or making decisions? (5 years old or older) Answer Entry Date Author No 08/30/2023 2:28 AM Angela Haynes RN documented in this encounter Miscellaneous Notes * Telephone Encounter - Evi Aldridge MD - 07/06/2024 6:42 PM ESTSigned Prescriptions: Disp Refills Benzonatate 100 MG Oral Capsule 30 Cap*1 Sig: Take 2 Capsules by mouth 3 times a day as needed for Cough. Authorizing Provider: EVI ALDRIDGE * Telephone Encounter - Veronique Sexton [facility] - 07/06/2024 8:27 AM EST Pending Prescriptions: Disp Refills Benzonatate 100 MG Oral Capsule 30 Cap*1 Sig: Take 2 Capsules by mouth 3 times a day as needed for Cough. Electronically signed by Veronique Sexton [facility] at 07/06/2024 8:27 AM EST * Telephone Encounter - Veronique Sexton [facility] - 07/06/2024 8:27 AM EST Refill pharmacists currently not authorized to approve refills for this class of medication per refill protocol. Please approve if appropriate. Thank you, Veronique Sexton, PharmD. Clinical Pharmacist Pharmacy Refill Call Center 07/06/2024, 8:27 AM Electronically signed by Veronique Sexton [facility] at 07/06/2024 8:27 AM EST documented in this encounter Plan of Treatment Upcoming Encounters Date Type Department Care Team (Late st Contact Info) Description 07/07/2024 10:20 AM EST Office Visit [facility] [address] [place] [id number] Evi Aldridge MD [address] [place] [address] 07/14/2024 2:00 PM EST Office Visit Cardiology, [facility] [address] [place] [address] Juan Simons DO [address] [place] [address] 07/14/2024 3:30 PM EST Office Visit Orthopaedics [facility] [address] [place] [address] Ary Rowe MD [address] [place] [address] 09/01/2024 1:40 PM EST Office Visit [facility] [address] [place] [address] Evi Aldridge MD [address] [place] [address] 04/01/2025 2:40 PM EDT Telemedicine Neurology [address] [place] [address] Eros Marks, DO [address] [place] [address] Scheduled Procedures Name Priority Associated Diagnoses [...] this encounter Medical Devices Implanted Type Area Carbon Blocks Press Operator Device Identifier Shelf Expiration Date Model / Serial / Lot Stent Protege Gps [id number] - [id number] Implanted:Qty : 1 on 09/29/2020 [place] [facility] [place]: Chest [employer] : VASCULAR [id number] 09/20/2022 [id number] / / [id number] Stent Viab [id number] - [id number] Implanted:Qty : 1 on 04/16/2023 by Carmelo Ramos [place] [facility] [place] Right: Subclavian [employer] [id number] 01/26/2026 [id number] / [id number] / [id number] Stent Synergy Xd Mr [id number] - [id number] Implanted:Qty : 1 on 06/09/2024 by Diamond Mcgowan [place] [facility] [facility] [place] [employer] [id number] 01/21/2026 [id number] / / [id number] documented as of this encounter Visit Diagnoses Diagnosis Chronic cough Cough documented in this encounter Advance Directives * [...] Advance Directives occurred with: Patient Care Teams Guide Changer Relationship Specialty Start Date End Date Evi Aldridge MD [address] [facility] [place] [address] PCP - General Family Medicine 10/21/18 documented as of this encounter
--- OUTSIDE RECORDS SUMMARY | 2024-07-10 15:02 | External Medical Summary | Summary of Care ---
Author Name Unknown Organization [facility] Address [address] [place] [address] Phone [phone] Care Team Providers Care Marine Electrician Helper Name Role Phone Adolph Aldridge MD Primary Care Provider [phone] Reason for Visit * Reason Onset Date Comments No Show 07/07/2024 Encounter Details Date Type Department Care Team (Late st Contact Info) Description 07/07/2024 10:20 AM EST Office Visit [facility] [address] [place] [address] Adolph Aldridge MD [address] [place] [address] NO SHOW/FAILED TO KEEP APPOINTMENT* Allergies Active Allergy Reactions Criticality Noted Date Comments Amoxicillin Low 01/27/2021 Other reaction(s): VOMITING Cefaclor Rash Low 11/23/2011 Cephalosporins Rash Low 05/16/1999 documented as of this encounter (statuses as of 07/07/2024) Medications Calcium Acetate (Phos Binder) 667 MG [...] Tablet 03/14/20 22 Active OneTouch Delica Plus [id number] ons:DM type 2 with diabetic peripheral neuropathy [...] FOR ANXIETY 02/12/20 24 Active Dexcom G7 Whipper Device USE DAILY TO CHECK BLOOD SUGARS [...] EVERY 3 MONTHS 1 mL 06/26/20 Active Benzonatate 100 MG Oral CapsuleIndication s:Chronic cough Take 2 Capsules by mouth 3 times a day as needed for Cough. 30 Capsule 1 07/06/20 24 Active documented as of this encounter (statuses as of 07/07/2024) Active Problems Problem Noted Date Diagnosed Date Chronic total occlusion of coronary artery 06/09 S/P primary angioplasty with coronary stent 04/27 Bleeding hemorrhoids 05/21/2024 Coronary artery disease involving platinum coronar y artery 05/21/2024 HFrEF (heart failure [...] as of this encounter (statuses as of 07/07/2024) Resolved Problems Problem Noted Date Diagnosed Date [...] and PP sugars <120. Report levels to [facility] department weekly. 10. Advised patient that Glyburide, Metformin, and insulin may be safely used during for the control of blood sugar levels. Alexandra will begin her insulin therapy today. 11. Dietary consult to be done to instruct patient on appropriate nutrition and diet to aid in control of blood sugars. 12. Recommend urine culture each trimester. 13. Recommend [facility] ultrasound for limited anatomy at 12-14 weeks, for full anatomy at 18-20 weeks, and for echocardiography at 22-24 weeks. 14. Start testing with twice weekly NST and weekly MATTHEW beginning at 32 weeks or earlier if any evidence of uncontrolled blood sugars, renal abnormalities, or HTN. 15. Recommend [facility] growth ultrasound every 4 weeks after 24 [...] repepat OB Orville Torres 03/19/2011 01/29/20 17 Overview (08/09/2011): 03/19/2011 Needs enrolled in [facility] once MA active. Marva RN- Enrolled [...] as of this encounter (statuses as of 07/07/2024) Immunizations Name Administration Dates Next Due COVID-19 [...] Angela Haynes RN documented in this encounter Progress Notes * Shannan Fitzpatrick LPN - 07/07/2024 2:05 PM EST Patient failed to keep scheduled appointment. Shannan Fitzpatrick LPN documented in this encounter Plan of Treatment Upcoming Encounters Date Type Department Care Team (Late st Contact Info) Description 07/14/2024 2:00 PM EST Office Visit Cardiology, [facility] [address] [place] [address] Juan Simons, DO [address] [place] [address] 07/14/2024 3:30 PM EST Office Visit Orthopaedics [facility] [address] [place] [address] Ary Rowe MD [address] [place] [address] 09/01/2024 1:40 PM EST Office Visit [facility] [address] [facility] [place] [address] Adolph Aldridge MD [address] [place] [address] 04/01/2025 2:40 PM EDT Telemedicine Neurology [address] [place] [address] Eros Marks, DO [address] [facility] [place] [id number] Scheduled Procedures Name Priority Associated Diagnoses [...] this encounter Medical Devices Implanted Type Area Lockstitch Topstitcher Device Identifier Shelf Expiration Date Model / Serial / Lot Stent Protege Gps [id number] - [id number] Implanted:Qty : 1 on 09/29/2020 by Carmelo Ramos MD at [place] [facility] [place] Left: Chest [employer] : VASCULAR [id number] 09/20/2022 [id number] -40-80 / / [id number] Stent Viab [id number] - [id number] Implanted:Qty : 1 on 04/16/2023 by Carmelo Ramos MD at [place] [facility] [place] Right: Subclavian [employer] [id number] 01/26/2026 [id number] / [id number] / [id number] Stent Synergy Xd Mr [id number] - [id number] Implanted:Qty : 1 on 06/09/2024 by Diamond Mcgowan MD at [facility] [place] [employer] [id number] 01/21/2026 [id number] / / [id number] documented as of this encounter Visit Diagnoses Diagnosis NO SHOW/FAILED TO KEEP APPOINTMENT- Primary documented in this encounter Advance Directives * [...] Advance Directives occurred with: Patient Care Teams Marine Electrician Helper Relationship Specialty Start Date End Date Adolph Aldridge MD [address] [facility] [place] [id number] PCP - General Family Medicine 10/21/18 documented as of this encounter
[2024-07-10] MEDS: EPOETIN ALFA 10,000 UNITS/ML VIAL IV ONE (15:20)
[2024-07-10] MEDS: ACETAMINOPHEN 325 MG TAB PO PRN (16:16)
--- NOTE | 2024-07-10 20:16 | Communication Note ---
Date of Service: July 10, 2024 Patient with 10/10 chest pain not relieved by tramadol. Patient watching Netflix during episode as per RN. Morphine from this morning only thing that works for pain as per patient as per RN. EKG as per my interpretation rate 70, NSR, LAD, LAFB, LVH, T wave flattening inferior leads Troponin 53.9 from 60.3 in a.m. AP Atypical chest pain ? Psychosomatic versus malingering/secondary gain given recurrent admissions Consider psych consult in a.m. if daytime provider agreeable.
[2024-07-10] MEDS: PANTOprazole 40 MG TAB PO SCH (20:32)
[2024-07-10] MEDS: MIRTAZAPINE TAB 15 MG TAB PO SCH (20:34)
[2024-07-11 07:12] VITALS: O2SAT 97
[2024-07-11 07:21] VITALS: RESP 17
[2024-07-11 07:32] LABS: Basophils # (auto) 0.03 K/uL (0.00-0.20); Basophils % (auto) 0.9 %; Eosinophils # (auto) 0.14 K/uL (0.00-0.50); Eosinophils % (auto) 4.3 %; Hemoglobin 9.4 g/dl (12.0-16.0); Immature Granulocytes # (auto) 0.01 K/uL (0.01-0.20); Immature Granulocytes % (auto) 0.3 %; Lymphocytes # (auto) 0.47 K/uL (1.20-3.40); Lymphocytes % (auto) 14.5 %; Mean Corpuscular Hemoglobin 32.8 pg (25.0-34.0); Mean Corpuscular Hgb Conc 31.3 g/dL (32.0-36.0); Mean Corpuscular Volume 104.5 fL (80.0-100.0); Mean Platelet Volume 10.4 fL (9.4-12.4); Monocytes # (auto) 0.49 K/uL (0.11-0.59); Monocytes % (auto) 15.1 %; Neutrophils # (auto) 2.11 K/uL (1.40-6.50); Neutrophils % (auto) 64.9 %; Platelet Count 131 K/uL (130-400); RDW Coefficient of Variation 18.1 % (11.5-14.5); RDW Standard Deviation 68.5 fL (36.4-46.3); Red Blood Count 2.87 M/uL (4.20-5.40); White Blood Count 3.25 K/ul (4.8-10.8)
[2024-07-11 08:10] LABS: BUN Creatinine Ratio 3.8 (10-20); Creatinine Clr Calc Pharmacy 15.1 ml/min; Magnesium 2.3 mg/dl (1.7-2.4); Potassium 4.7 mmol/L (3.5-5.1)
--- NOTE | 2024-07-11 10:58 | Discharge Summary ---
Discharge Summary Date of Service July 11, 2024 Principal Dx & Hospital Course #1 = Principal Diagnosis (1) Chest pain: Plan Pt is a 38yoF with PMHx significant for chronic systolic heart failure (EF 45%, TTE 2023), CAD status post recent stent, valvular heart disease (mild MR/MS), hypertension, ESRD on HD, history of FSGS status post failed renal transplantation, DM2 diet controlled, anxiety/mood disorder, colonic polyps/ diverticulosis, RLS, chronic anemia (baseline hemoglobin of 8-9), history of migraine, medical noncompliance, ongoing tobacco abuse who presented with atypical chest pain. High-sensitivity troponins were elevated but flat at 58.2 to 60.3 to 53.9 Her EKG did not show signs of ischemia Her echo from June 29 noting EF 40 to 45%, moderate concentric left ventricular hypertrophy, large apical septal and anteroseptal wall motion abnormalities with hypokinesis to akinesis of the segments, right ventricle normal, left atrium mildly dilated, moderate to severe mitral annular calcification, borderline mild mitral valve stenosis, mild mitral valve regurgitation. No relief with nitroglycerin administered at the ER. Ruled out PE with a CTA chest Cardiology was consulted and noted or stated the following: "Complex 38-year-old female admitted for evaluation of nausea and vomiting, chronic atypical chest discomfort. Patient with end-stage renal disease with recently missed dialysis session on Saturday. Elevated troponin concentration appears to be in the absence of an acute coronary syndrome with history suggesting noncardiac etiology noting aggravation of discomfort when lying on left side. EKG without acute change. Imaging of the chest without acute cardiopulmonary abnormality. potline monitor benign thus far. Recommend aggressive cardiac medical management including continuation of dual antiplatelet therapy with aspirin and clopidogrel, guideline directed therapy with metoprolol succinate. Unless contraindicated from a renal standpoint would recommend addition of low-dose losartan noting ischemic cardiomyopathy (EF 40 to 44% in April 2024). No significant valvular observed on recent resting echocardiogram. Volume controlled via hemodialysis. Recommend switching rosuvastatin to atorvastatin 40 mg/day noting end-stage renal disease on hemodialysis, LDL cholesterol goal less than 55 mg/dL." With patient's need for dialysis will defer to Nephrology on adding a low-dose losartan at this time. Patient's rosuvastatin was changed to atorvastatin 40 mg daily Please ensure close follow-up with cardiology and nephrology after discharge. Notes For Next Care Provider Please encourage follow up with Cardiology and Nephrology Please encourage compliance with dialysis sessions Medication Changes From Visit Per cardiology: Discontinue home rosuvastatin and switch to atorvastatin 40mg Admission HPI Per Admitting Provider History obtained from patient and records. Medical history significant for chronic systolic heart failure (EF 45%, TTE 2023), CAD status post recent stent, valvular heart disease (mild MR/MS), hypertension, ESRD on HD, history of FSGS status post failed renal transplantation, DM2 diet controlled, anxiety/mood disorder, colonic polyps/diverticulosis, RLS, chronic anemia (baseline hemoglobin of 8-9), history of migraine, medical noncompliance, \\ ongoing tobacco abuse. Recent overnight confinement 06/29-06/30 for chest pain. Chest pain deemed atypical after cardiology eval. Patient comfortable at time of discharge. Patient had recurrence of substernal chest pain, nonpleuritic, with some SOB shortly after leaving hospital. Compliant with home medications. Denies unusual stress. Patient had emesis tonight. Patient consulted ER for worsening symptoms. Chest pain not relieved by nitroglycerin administration at the ER. Medical History as above Surgical History : Vascular procedures, section, cystoscopy, knee surgery, eye surgery, BTL, renal biopsy, kidney transplant Family History : SLE, Crohn's disease, high blood pressure, depression Personal/Social history: past tobacco abuse, no EtOH intake, disabled Admission Exam Per Admitting Provider GENERAL: Comfortable, obese, looks older than stated age, no respiratory distress SKIN: Pallor, warm HEENT: Pale palpebral conjunctivae, no ptosis, dry buccal mucosa NECK : Supple, short neck, no tenderness CHEST : Decreased breath sounds, no tenderness HEART : RRR, no obvious murmurs ABDOMEN: Some distention, nontender EXTREMITIES : Minimal LE swelling, no LE tenderness, upper extremity AV grafts, no other conspicuous deformities noted NEUROLOGIC : Coherent, no facial asymmetry, no other gross focality Discharge Exam General: Alert, oriented. No acute distress Skin: No noted rashes or bruises HEENT: NC/AT Chest: Nontender to palpation. CV: RRR Resp: Breath sounds clear bilaterally, no increased effort of breathing Abdomen:Soft Extremities: No edema in lower extremities bilaterally. Updated Medication List Medication Instructions Recorded Confirmed Type albuterol sulfate 2.5 mg/3 mL 2.5 mg inhalation Q4H PRN 06/08/23 07/10/24 History (0.083 %) solution for nebulization Shortness Of Breath Or Wheezing albuterol sulfate 90 mcg/actuation 2 puff inhalation Q6H PRN 06/08/23 07/10/24 History aerosol inhaler Shortness Of Breath Or Wheezing carbamazepine 200 mg tablet 200 mg PO AMPM 06/08/23 07/10/24 History hydroxyzine HCl 25 mg tablet 25 mg PO Q6H PRN Anxiety 06/08/23 07/10/24 History lorazepam 0.5 mg tablet 0.5 mg PO Q8 PRN Anxiety 06/08/23 07/10/24 History mometasone-formoterol HFA 200 2 puff inhalation BID 06/08/23 07/10/24 History mcg-5 mcg/actuation aerosol inhaler (Dulera) vitamin B complex-vitamin C-folic 1 tab PO DAILY 06/08/23 07/10/24 History acid 0.8 mg tablet (Renal-Rika) benzonatate 100 mg capsule 200 mg PO TID PRN Cough 08/29/23 07/10/24 History calcium acetate(phosphat bind) 667 2,001 mg PO UD 08/29/23 07/10/24 History mg capsule cinacalcet 90 mg tablet 90 mg PO QDD 08/29/23 07/10/24 History medroxyprogesterone 150 mg/mL 150 mg IM UD 08/29/23 07/10/24 History intramuscular suspension (Depo-Provera) lidocaine 5 % topical ointment 1 applic topical QID PRN pain #30 04/11/24 07/10/24 Rx grams bupropion HCl 150 mg 24 hr tablet, 150 mg PO QAM 04/17/24 07/10/24 History extended release mirtazapine 7.5 mg tablet 7.5 mg PO HS 04/17/24 07/10/24 History varenicline 0.5 mg tablet 0.5 mg PO DAILY #30 tabs 04/30/24 07/10/24 Rx aspirin 81 mg tablet,delayed 81 mg PO QAM #30 tabs 05/09/24 07/10/24 Rx release clopidogrel 75 mg tablet 75 mg PO QAM #30 tabs 05/09/24 07/10/24 Rx metoprolol succinate 25 mg 25 mg PO BID #60 tabs 05/09/24 07/10/24 Rx tablet,extended release 24 hr gabapentin 100 mg capsule 200 mg (2 x 100 mg) PO TID #180 05/10/24 07/10/24 Rx caps pantoprazole 40 mg tablet,delayed 40 mg PO BID #60 tabs 05/10/24 07/10/24 Rx release atorvastatin 40 mg tablet 40 mg PO DAILY #30 tabs 07/11/24 Rx Hospital Stay Data Consultations 07/10/24 05:50 ED Decision to Admit Stat 07/10/24 08:38 Consult Cardiology Routine Consult Nephrology Routine Diagnostic Imagining Performed 07/10/24 07:43 CT angio chest PE protocol Stat Chest X-Ray 07/10/24 04:12 EXAM: XR chest 1V portable CLINICAL HISTORY: CHEST PAIN JMF TECHNIQUE: Radiograph of chest was acquired. COMPARISON: 29 June 2024. FINDINGS: Lungs are clear and well-expanded with no pulmonary infiltrate. No pleural effusion is detected. Unchanged cardiomegaly. Rest of the findings are unchanged compared to the previous radiograph. IMPRESSION: 1. Unchanged cardiomegaly. 2. Findings are relatively unchanged compared to the previous radiograph. No interval new finding is noted. Electronically signed by Mj Downs 07-10-2024 05:39 AM Chest CTA 07/10/24 07:43 CT angio chest PE protocol CT DOSE: 1700.86 mGy.cm HISTORY: 38 years-old Female with cp. Acute chest pain in a patient with renal failure and scheduled dialysis TECHNIQUE: Multiple CTA images of the chest were obtained after the intravenous administration of 120 ml Optiray. Coronal and sagittal MIPS were obtained from the axial data set and were submitted for review. All measurements were obtained according to NASCET criteria. A dose lowering technique was utilized adhering to the principles of ALARA. COMPARISON: Chest radiograph of same day, CTA chest 04/20/2024 FINDINGS: CTA: Moderate cardiomegaly with extensive coronary artery calcifications. No thoracic aortic aneurysm. No pulmonary emboli are identified, however there is suboptimal visualization of the segmental and subsegmental branches. The contrast injections within the left upper extremity. There are numerous opacified venous collaterals again seen within the left chest wall predominantly. There is a left brachiocephalic stent graft which demonstrates high-grade stenosis on image 151 series 4, unchanged from prior with chronic linear stranding extending into the brachiocephalic SVC confluence. Additionally, there is a patent graft within the right clavicular distribution. CT CHEST: Unremarkable thyroid. Mildly enlarged mediastinal and hilar lymph nodes are unchanged. No pneumothorax, pleural effusion or lobar airspace consolidation. No suspicious pulmonary nodules or masses. Minimal bibasilar atelectasis. Central airways are patent. No acute upper abdominal abnormality. Probable shunting within the left hepatic lobe adjacent to the falciform ligament. No acute fracture. IMPRESSION: 1. No pulmonary emboli identified. 2. Cardiomegaly without definite pulmonary edema or pleural effusion. 3. High-grade stenosis is again noted involving the left brachiocephalic venous graft resulting in numerous chest wall collaterals. This limits the contrast bolus to the pulmonary artery, limiting the study. 4. Unchanged borderline enlarged mediastinal and hilar lymphadenopathy. ACT 112: Negative or not required by law. The above report was generated using voice recognition software. It may contain grammatical, syntax or spelling errors. Electronically signed by: Cristhian Copeland M.D. 07/10/2024 8:51 AM Discharge Instructions Given to Patient (Per Discharging Provider) Alexandra, You were admitted and evaluated for concern for chest pain. You were seen by the delimber operator who determined that at this time there is no concern for acute coronary syndrome. They recommended that you continue with your aspirin and Plavix at home, as well as your metoprolol succinate. They also recommended that we switch your medication rosuvastatin to atorvastatin 40 mg daily. A prescription for that was sent to your pharmacy. Please keep close follow-up with cardiology as well as your primary care provider after discharge. Please also keep close follow-up with nephrology after discharge. Please also keep close follow up with your primary care provider after discharge. Please do not hesitate to come back to the emergency room if your symptoms worsen or return. It was a pleasure taking care of you while you were here. Total Time Total Time Spent Total Time Spent (In Minutes): 65
[2024-07-11 13:08] VITALS: PULSE 76; TEMP 97.5
--- NOTE | 2024-07-11 14:50 | Nephrology Progress Note ---
Date of Service July 11, 2024 Assessment & Plan (1) ESRD (end stage renal disease) on dialysis: Plan: 38/F with ESRD on HD--MWF but with major h/o Non compliance. Currently has RUE avf which is being used w/o issues ran 3 hours today w/o issues > volume better controlled now compared to admission heparin and Epo will be given; will maintain hgb > 8 to lower risk of anemia contributing to chest pain tolerating reg renal diet. labs reviewed--hgb 9.4 so epo rx'd w/ HD potassium 4.7; sodium wnl > appropriately dialyzed she had phosphorus rich snacks at bedside > reviewed the importance of phos control and binder adherence w/ her for better heart health stressed w/ pt the importance of adhering to OP HD regimen to minimize cardiac complications best we can from uncontrolled volume/uremia/anemia/hyperphosphatemia; she states she'll be at treatment as OP on 07/13 Case reviewed w/ Dr Linares regarding d/c dispo and plans for next oP HD>> we are in agreement. (2) Chest pain: Plan: Complex history with multiple admissions and procedures noted. No acute cardiac intervention needed apart from continued medical cardiac management and contiued adherence w/ dialysis Now chest pain comes intermittently but she tells me it's a bit better Admission and Anticipated Discharge Date Admission Date: July 10, 2024 Subjective seen after dialysis; she tolerated 1.7 L UF but then UF limited by hypotension. ongoing intermittent chest pain. no dyspnea. no n/v; tolerating po thoug minimal appetite Review of Systems 2 Review of Systems: All systems reviewed & are unremarkable except as noted in Subjective Physical Exam 2 Constitutional: well developed and well nourished; no acute distress Eyes: EOM intact bilaterally ENMT: Mouth: + dry oral mucous membranes Neck: no nuchal rigidity Respiratory: normal respiratory effort Auscultation: + diminished lung sounds Cardiovascular: Rate/Rhythm: regular rate and regular rhythm Extremities: + AV fistula; no edema Musculoskeletal: Extremities: strength 5/5 throughout Skin: no rashes, warm and dry Neurologic: sandy, fluent speech, no tremor Psychiatric: A+Ox3, euthymic affect Results & Data Vital Signs (Past 12 Hours) Vital Signs Temp Pulse Pulse Pulse Resp BP BP 07/11/24 13:07 36.4 C L 76 17 124/68 07/11/24 12:35 36.5 C 72 123/68 07/11/24 12:27 37.1 C 76 70 17 07/11/24 12:00 67 98/52 L 07/11/24 11:30 66 111/61 07/11/24 11:15 64 84/54 L 07/11/24 11:00 59 L 88/38 L 07/11/24 10:30 69 95/57 L 07/11/24 10:00 67 110/70 07/11/24 09:30 64 125/72 07/11/24 09:14 72 128/78 07/11/24 09:06 37.1 C 70 07/11/24 07:10 36.8 C 70 17 07/11/24 07:00 71 BP Pulse Ox O2 Del Method 07/11/24 13:07 97 Room Air 07/11/24 12:35 07/11/24 12:27 113/71 97 07/11/24 12:00 07/11/24 11:30 07/11/24 11:15 07/11/24 11:00 07/11/24 10:30 07/11/24 10:00 07/11/24 09:30 07/11/24 09:14 07/11/24 09:06 07/11/24 07:10 113/71 97 Room Air 07/11/24 07:00 Laboratory Results 07/11/24 06:49 07/11/24 06:49
[2024-07-11 14:57] VITALS: BP 113/71
--- NOTE | 2024-07-12 08:18 | Electrocardiogram Report ---
Test Reason : Blood Pressure : */* mmHG Vent. Rate : 71 BPM Atrial Rate : 71 BPM P-R Int : 160 ms QRS Dur : 112 ms QT Int : 484 ms P-R-T Axes : 37 -20 12 degrees QTcB Int : 525 ms Normal sinus rhythm Possible Left atrial enlargement Left ventricular hypertrophy Possible Lateral infarct (cited on or before 21-Mar-2018) Prolonged QT Abnormal ECG When compared with ECG of 10-Jul-2024 03:41, No significant change was found Confirmed by Johny Rodriguez ([id number]) on 07/12/2024 8:17:45 AM Referred By: REFERRED SELF Confirmed By: Johny Rodriguez
== END 2024-07-11 14:45 | disposition home or self-care (01) | DRG 313 ==
LOC: ED 03:36 → EDINP 06:05 → 2S 09:37

== ENCOUNTER 2024-07-15 07:27 | Observation (INO) ==
--- NOTE | 2024-07-15 08:41 | XRay Report ---
XR chest 1V portable CLINICAL HISTORY: Chest pain, nonspecific COMPARISON STUDY: Chest radiograph and chest CT July 10, 2024. FINDINGS: Lung volumes are normal. Lungs are clear. There is no pneumothorax or pleural effusion. Car diomegaly is unchanged. Several vascular stents are again noted. Mediastinal contours are normal. The re is no evidence for pulmonary edema. IMPRESSION: No acute cardiopulmonary findings. No change in appearance of the chest. ACT 112: Negative or not required by law. Electronically signed by: Sebastian Mcclain M.D. 07/15/2024 8:40 AM
--- NOTE | 2024-07-15 08:56 | Emergency Department Note ---
Impression & Plan Chest pain, Prolonged QT interval, ESRD (end stage renal disease) on dialysis ED Provider Note NAME: NATHALIA DUTTON AGE: 38 SEX: F : 1985 ARRIVES VIA: Ambulance INFORMANT: Patient, ED PROVIDER(S): Leif Diaz MD CHIEF COMPLAINT: Chest pain HPI: This is a 38-year-old female presenting for chest pain. Patient states that she was at dialysis today when she had a anxiety and tach. She had 10/10 mid chest pain that rates into her left back. Due to 7 complicate medical conditions, patient is well-known to the emergency department. She has had 2 stents placed in the past 2 months. She is given 2 nitro and aspirin 324 mg without relief. Currently patient is resting comfortably stating 10/10 pain. She reports pressure-like sensation. ROS: See above HPI for pertinent positives & negatives. A total of 10 systems reviewed and were otherwise negative. PAST MEDICAL HISTORY: See Below PAST SURGICAL HISTORY: See Below FAMILY HISTORY: See Below SOCIAL HISTORY: See Below HOME MEDICATIONS: See Below ALLERGIES: See Below VITALS: See Below PHYSICAL EXAMINATION: General: Chronically unwell appearing Head: Normocephalic and atraumatic Eyes: Normal inspection, extraocular muscles intact Ear, nose, throat: Normal external exam Neck: Normal range of motion Respiratory: lungs clear to auscultation bilaterally Cardiovascular: Regular rate/rhythm, no murmur GI: soft, nontender, no guarding or rebound Extremities: Bilateral upper extremity fistulas Neuro: The patient awake and alert, appropriately conversive, no focal deficits, symmetric faces Skin: Warm, dry, and intact MEDICAL DECISION MAKING: This is a 38-year-old female sent for chest pain. Patient has difficult access due to her bilateral upper extremity fistulas and baseline poor access. -I did perform ultrasound guidance, Angiocath placement of an IV in the right forearm -Will do screening work for close EKG, blood work. -ECG independently interpreted by me with normal sinus rhythm at a rate of 100, left axis deviation with prolonged QT, no ST segment elevations consistent with STEMI criteria -Troponin is elevated in the 50s. Second troponin is uptrending. Patient continues to endorse chest pain. -Blood work is reviewed showing anemia, slight electrolyte disturbances but otherwise no significant with any abnormality. -Will admit due to previous stenting, current chest pain -Discussed care with hospitalist service, [facility] Differential diagnosis: ACS, PE, anxiety ER treatment provided: See below Diagnostics interpreted by me: ECG: See above Cardiac Monitoring: An order was placed for continuous cardiac monitoring. The monitor shows a rate of 82 with sinus rhythm. Laboratory studies: As stated above and show below. Imaging studies: See below. Past Med/Surg History Problem List (Updated 07/15/24 @ 15:56 by Leif Diaz MD) Chest pain (Acute) HTN, goal below 130/80 Dyslipidemia, goal LDL below 70 Stented coronary artery Premature coronary artery disease Chest pain at rest Chest pain (Acute) Rhinovirus infection Ischemic cardiomyopathy S/P right coronary artery (RCA) stent placement Status post insertion of drug-eluting stent into left anterior descending (LAD) artery History of heart artery stent (Acute) Coronary artery disease (Acute) ESRD (end stage renal disease) on dialysis (Acute) Substernal chest pain (Acute) Atypical chest pain (Acute) Anemia (Acute) Atypical chest pain (Acute) Abnormal laboratory test (Acute) Coronary artery disease due to calcified coronary lesion Dialysis complication (Acute) Syncope (Acute) Acute hyperkalemia (Acute) Symptomatic anemia (Acute) Episode of syncope Rectal bleeding Chest pain (Acute) ESRD on dialysis (Acute) Acute hyperkalemia (Acute) Elevated troponin (Acute) Chest pain not due to acute coronary syndrome (Acute) Bleeding external hemorrhoids (Acute) Non-compliance (Acute) Fluid overload (Acute) Uremia (Acute) Anemia (Acute) Depression (Acute) Weakness (Acute) Sleep deprivation (Acute) Hallucinations (Acute) Anemia (Acute) Dialysis patient (Acute) Medical non-compliance (Acute) Acute uremia (Acute) Shortness of breath (Acute) Elevated troponin (Acute) Acute hyperkalemia (Acute) SOB (shortness of breath) (Acute) SOB (shortness of breath) (Acute) CHF (congestive heart failure) (Acute) Acute uremia (Acute) Somnolence (Acute) Medical non-compliance (Acute) Elevated troponin (Acute) Dialysis patient (Acute) Renal failure (Acute) Hyperkalemia (Acute) Thrombocytopenia COVID-19 (Acute) Renal osteodystrophy Anemia in ESRD (end-stage renal disease) ESRD (end stage renal disease) on dialysis (Acute) DM2 (diabetes mellitus, type 2) (Acute) Anxiety Depression Major depressive disorder, recurrent, in partial remission Depression with anxiety Anemia of chronic disease Status post fall last fallNovember 2022 > nasal fx / knee pain, no surgery for either injury > resolved per pt report Prolonged QT interval (Acute) no cardio HTN (hypertension) (Acute) Anemia due to end stage renal disease (Acute) FSGS (focal segmental glomerulosclerosis) (Chronic) DX INITIALLY 2012 (CAUSING ESRD 2012) Medical History Mood disorder Anxiety disorder, unspecified Abnormal chest xray Elevated lactic acid level Transaminitis Pneumonia Metabolic encephalopathy Acute non-ST elevation myocardial infarction (NSTEMI) Pulmonary edema Acute hyperkalemia Acute alteration in mental status Renal failure (ARF), acute on chronic Encephalopathy Facial fracture GI bleed ESRD (end stage renal disease) on dialysis Symptomatic anemia Tobacco abuse DVT prophylaxis Fistula right arm (currently being used) and left arm Dialysis patient SATURDAY/SAT/SATURDAY AT [facility] GERD (gastroesophageal reflux disease) Bipolar disorder Restless leg syndrome Peripheral neuropathy Asthma rare res inh use History of abnormal cervical Papanicolaou smear Elevated troponin Acute electrocardiogram changes Surgical History H/O eye surgery LASER SURGERY LEFT History of surgery left arm d/t clot in arm from AV fistula use @ [facility] History of surgery (~09/09/20) perm cath > since removed History of colonoscopy Kidney transplant recipient 2013 AT [facility] History of tooth extraction three TOOTH History of cardiac cath 2016 NO STENTS AVF (arteriovenous fistula) bilat upper arms ---currently using right for dialysis Family History Grandmother Hx of CABG Mother Diabetes Father Crohn's disease Grandfather (Maternal) Diabetes Uncle Diabetes Grandmother (Maternal) Family history of reaction to anesthesia difficulty waking with colonoscopy Social History Smoking Status: Former smoker Tobacco Type: Cigarettes Cigarettes Per Day: 20; Second Hand Exposure: Yes (on occasion); Do You Dip or Chew Tobacco: No; Hx Alcohol Use: Yes Alcohol type: hard liquor Alcohol Intake Frequency Comment: q3 months Hx Substance Use: No Preferred Language: Maltese Communication Ability: Effective 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 Beliefs That Will Affect Care: None marital status: Single Current Living Situation: Family Current Living Situation Comment: grandparents How many Children do You have: 3 Feels Safe at Home: Yes Assistive Devices: None Allergies Allergies Allergy/AdvReac Type Severity Reaction Status Date / Time cefaclor Allergy Intermediate Rash Verified 06/25/24 10:45 Cephalosporins Allergy Intermediate Rash Verified 06/25/24 10:45 amoxicillin AdvReac Intermediate VOMITING Verified 06/25/24 10:45 clavulanic acid AdvReac Intermediate VOMITING Verified 06/25/24 10:45 Home Meds Home Medications Medication Instructions Recorded Confirmed albuterol sulfate 2.5 mg/3 mL 2.5 mg inhalation Q4H PRN 06/08/23 07/15/24 (0.083 %) solution for nebulization Shortness Of Breath Or Wheezing albuterol sulfate 90 mcg/actuation 2 puff inhalation Q6H PRN 06/08/23 07/15/24 aerosol inhaler Shortness Of Breath Or Wheezing carbamazepine 200 mg tablet 200 mg PO AMPM 06/08/23 07/15/24 hydroxyzine HCl 25 mg tablet 25 mg PO Q6H PRN Anxiety 06/08/23 07/15/24 lorazepam 0.5 mg tablet 0.5 mg PO Q8 PRN Anxiety 06/08/23 07/15/24 mometasone-formoterol HFA 200 2 puff inhalation BID 06/08/23 07/15/24 mcg-5 mcg/actuation aerosol inhaler (Dulera) vitamin B complex-vitamin C-folic 1 tab PO DAILY 06/08/23 07/15/24 acid 0.8 mg tablet (Renal-Rika) benzonatate 100 mg capsule 200 mg PO TID PRN Cough 08/29/23 07/15/24 calcium acetate(phosphat bind) 667 2,001 mg PO UD 08/29/23 07/15/24 mg capsule cinacalcet 90 mg tablet 90 mg PO QDD 08/29/23 07/15/24 medroxyprogesterone 150 mg/mL 150 mg IM UD 08/29/23 07/15/24 intramuscular suspension (Depo-Provera) bupropion HCl 150 mg 24 hr tablet, 150 mg PO QAM 04/17/24 07/15/24 extended release mirtazapine 7.5 mg tablet 7.5 mg PO HS 04/17/24 07/15/24 Previous Rx's Medication Instructions Recorded lidocaine 5 % topical ointment 1 applic topical QID PRN pain #30 04/11/24 grams varenicline 0.5 mg tablet 0.5 mg PO DAILY #30 tabs 04/30/24 aspirin 81 mg tablet,delayed 81 mg PO QAM #30 tabs 05/09/24 release clopidogrel 75 mg tablet 75 mg PO QAM #30 tabs 05/09/24 metoprolol succinate 25 mg 25 mg PO BID #60 tabs 05/09/24 tablet,extended release 24 hr gabapentin 100 mg capsule 200 mg (2 x 100 mg) PO TID #180 05/10/24 caps pantoprazole 40 mg tablet,delayed 40 mg PO BID #60 tabs 05/10/24 release atorvastatin 40 mg tablet 40 mg PO DAILY #30 tabs 07/11/24 Results & Data (ED) Vital Signs Vital Signs - 24 hr 07/15/24 07:44 07/15/24 07:48 07/15/24 09:27 Temperature 36.8 C Temperature Source Oral Pulse Rate 101 H 92 H Pulse Rate [Left Apical] Pulse Rate from SpO2 Sensor 88 Respiratory Rate 18 16 Respiratory Effort / Characteristics Non-Labored Spontaneous Respiratory Depth Normal Respiratory Pattern Blood Pressure 89/62 L 136/82 Blood Pressure [Left Radial Artery] Blood Pressure Mean 71 100 Blood Pressure Mean [Left Radial Artery] Pulse Oximetry 98 98 Oxygen Delivery Method Room Air Sepsis Recent Fever Within 48 Hours No Sepsis New/Unexplained Change in Mental Status N/A Sepsis Action Taken by Nursing No Action Required 07/15/24 10:00 07/15/24 10:33 07/15/24 11:28 Temperature Temperature Source Pulse Rate 82 84 Pulse Rate [Left Apical] Pulse Rate from SpO2 Sensor 89 83 Respiratory Rate 16 Respiratory Effort / Characteristics Respiratory Depth Respiratory Pattern Blood Pressure 130/80 Blood Pressure [Left Radial Artery] Blood Pressure Mean 96 Blood Pressure Mean [Left Radial Artery] Pulse Oximetry 98 97 Oxygen Delivery Method Sepsis Recent Fever Within 48 Hours Sepsis New/Unexplained Change in Mental Status Sepsis Action Taken by Nursing 07/15/24 12:17 07/15/24 12:42 07/15/24 13:00 Temperature Temperature Source Pulse Rate 84 Pulse Rate [Left Apical] 78 Pulse Rate from SpO2 Sensor 81 Respiratory Rate 16 12 Respiratory Effort / Characteristics Non-Labored Spontaneous Respiratory Depth Normal Respiratory Pattern Regular Blood Pressure 112/73 Blood Pressure [Left Radial Artery] 133/82 Blood Pressure Mean 86 Blood Pressure Mean [Left Radial Artery] 99 Pulse Oximetry 99 99 99 Oxygen Delivery Method Room Air Room Air Room Air Sepsis Recent Fever Within 48 Hours Sepsis New/Unexplained Change in Mental Status Sepsis Action Taken by Nursing 07/15/24 13:36 07/15/24 14:21 07/15/24 14:33 Temperature Temperature Source Pulse Rate 82 73 84 Pulse Rate [Left Apical] Pulse Rate from SpO2 Sensor Respiratory Rate 17 15 14 Respiratory Effort / Characteristics Respiratory Depth Respiratory Pattern Blood Pressure Blood Pressure [Left Radial Artery] Blood Pressure Mean Blood Pressure Mean [Left Radial Artery] Pulse Oximetry 98 Oxygen Delivery Method Room Air Sepsis Recent Fever Within 48 Hours Sepsis New/Unexplained Change in Mental Status Sepsis Action Taken by Nursing 07/15/24 14:46 Temperature Temperature Source Pulse Rate Pulse Rate [Left Apical] 82 Pulse Rate from SpO2 Sensor Respiratory Rate 16 Respiratory Effort / Characteristics Non-Labored Spontaneous Respiratory Depth Normal Respiratory Pattern Regular Blood Pressure Blood Pressure [Left Radial Artery] 144/80 H Blood Pressure Mean Blood Pressure Mean [Left Radial Artery] 101 Pulse Oximetry 96 Oxygen Delivery Method Room Air Sepsis Recent Fever Within 48 Hours Sepsis New/Unexplained Change in Mental Status Sepsis Action Taken by Nursing Laboratory Data 07/15/24 08:40 07/15/24 08:40 Lab Results 07/15/24 07/15/24 07/15/24 Range/Units 08:40 10:42 12:29 WBC 4.45 L (4.8-10.8) K/ul RBC 2.78 L (4.20-5.40) M/uL Hgb 9.3 L (12.0-16.0) g/dl Hct 29.0 L (37.0-47.0) % MCV 104.3 H (80.0-100.0) fL MCH 33.5 (25.0-34.0) pg MCHC 32.1 (32.0-36.0) g/dL RDW Std Deviation 69.0 H (36.4-46.3) fL RDW Coeff of Laith 18.5 H (11.5-14.5) % Plt Count 115 L (130-400) K/uL MPV 10.5 (9.4-12.4) fL Immature Gran % (Auto) 0.2 % Neut % (Auto) 73.1 % Lymph % (Auto) 13.9 % Person % (Auto) 9.9 % Eos % (Auto) 2.2 % Baso % (Auto) 0.7 % Neut # (Auto) 3.25 (1.40-6.50) K/uL Lymph # (Auto) 0.62 L (1.20-3.40) K/uL Person # (Auto) 0.44 (0.11-0.59) K/uL Eos # (Auto) 0.10 (0.00-0.50) K/uL Baso # (Auto) 0.03 (0.00-0.20) K/uL Immature Gran # (Auto) 0.01 (0.01-0.20) K/uL Sodium 139 (136-145) mmol/L Potassium 3.4 L (3.5-5.1) mmol/L Chloride 93 L (98-107) mmol/L Carbon Dioxide 37 H (21-32) mmol/L Anion Gap 9 (3-11) BUN 15 (6-23) mg/dl Creatinine 4.30 H (0.6-1.2) mg/dl Est Cr Clr Drug Dosing 18.8 ml/min eGFR 12.85 BUN/Creatinine Ratio 3.5 L (10-20) Glucose 134 H (70-99(Fasting)) mg/dl Calcium 10.2 (8.6-10.3) mg/dl Total Bilirubin 0.5 (0.2-1.0) mg/dl AST 18 (13-39) U/L ALT 9 (7-52) U/L Alkaline Phosphatase 116 H (34-104) U/L Troponin I High Sens 51.8 H* 57.4 H* 59.6 H* (0-14) pg/ml Total Protein 6.5 (6.0-8.3) gm/dl Albumin 4.1 (3.4-5.0) gm/dl Globulin 2.4 L (2.5-4.0) gm/dl Albumin/Globulin Ratio 1.7 (0.9-2) Lipase 30 (11-82) U/L SARS-CoV-2, RNA, NAAT (NEGATIVE) 07/15/24 Range/Units 13:23 WBC (4.8-10.8) K/ul RBC (4.20-5.40) M/uL Hgb (12.0-16.0) g/dl Hct (37.0-47.0) % MCV (80.0-100.0) fL MCH (25.0-34.0) pg MCHC (32.0-36.0) g/dL RDW Std Deviation (36.4-46.3) fL RDW Coeff of Laith (11.5-14.5) % Plt Count (130-400) K/uL MPV (9.4-12.4) fL Immature Gran % (Auto) % Neut % (Auto) % Lymph % (Auto) % Person % (Auto) % Eos % (Auto) % Baso % (Auto) % Neut # (Auto) (1.40-6.50) K/uL Lymph # (Auto) (1.20-3.40) K/uL Person # (Auto) (0.11-0.59) K/uL Eos # (Auto) (0.00-0.50) K/uL Baso # (Auto) (0.00-0.20) K/uL Immature Gran # (Auto) (0.01-0.20) K/uL Sodium (136-145) mmol/L Potassium (3.5-5.1) mmol/L Chloride (98-107) mmol/L Carbon Dioxide (21-32) mmol/L Anion Gap (3-11) BUN (6-23) mg/dl Creatinine (0.6-1.2) mg/dl Est Cr Clr Drug Dosing ml/min eGFR BUN/Creatinine Ratio (10-20) Glucose (70-99(Fasting)) mg/dl Calcium (8.6-10.3) mg/dl Total Bilirubin (0.2-1.0) mg/dl AST (13-39) U/L ALT (7-52) U/L Alkaline Phosphatase (34-104) U/L Troponin I High Sens (0-14) pg/ml Total Protein (6.0-8.3) gm/dl Albumin (3.4-5.0) gm/dl Globulin (2.5-4.0) gm/dl Albumin/Globulin Ratio (0.9-2) Lipase (11-82) U/L SARS-CoV-2, RNA, NAAT NEGATIVE (NEGATIVE) Administered Medications Discontinued Medications Acetaminophen (Ofirmev) 1,000 mg in 100 mls @ 400 mls/hr IV NOW STA Stop: 07/15/24 10:30 Last Infusion: 07/15/24 11:20 Dose: Infused Documented By: [facility] Admin: 07/15/24 10:49 Dose: 400 mls/hr Documented By: MR Lorazepam (Lorazepam 2 Mg/1 Ml Vial) 0.5 mg IV NOW STA Stop: 07/15/24 14:30 Last Admin: 07/15/24 14:44 Dose: 0.5 mg Documented By: [facility] Imaging Data Radiologist's Impression: Chest X-Ray 07/15/24 07:49 XR chest 1V portable CLINICAL HISTORY: Chest pain, nonspecific COMPARISON STUDY: Chest radiograph and chest CT July 10, 2024. FINDINGS: Lung volumes are normal. Lungs are clear. There is no pneumothorax or pleural effusion. Cardiomegaly is unchanged. Several vascular stents are again noted. Mediastinal contours are normal. There is no evidence for pulmonary edema. IMPRESSION: No acute cardiopulmonary findings. No change in appearance of the chest. ACT 112: Negative or not required by law. Electronically signed by: Sebastian Mcclain M.D. 07/15/2024 8:40 AM Discharge Plan Visit Data Chief Complaint: Chest Pain Stated Complaint: Chest Pain ED Provider: Leif Diaz Discharge Problem: Chest pain, Prolonged QT interval, ESRD (end stage renal disease) on dialysis Forms Stand Alone Forms: My [email or web address] Prescriptions Prescriptions: No Action albuterol sulfate 2.5 mg /3 mL (0.083 %) Solution For Nebulization 2.5 mg INHALATION Q4H PRN (Reason: Shortness Of Breath Or Wheezing) carbamazepine 200 mg tablet 200 mg PO AMPM lorazepam 0.5 mg tablet 0.5 mg PO Q8 MDD panic attacks/before dialysis PRN (Reason: Anxiety) hydroxyzine HCl 25 mg tablet 25 mg PO Q6H PRN (Reason: Anxiety) Renal-Rika 0.8 mg Tablet 1 tab PO DAILY albuterol sulfate 90 mcg/actuation Hfa Aerosol Inhaler 2 puff INHALATION Q6H PRN (Reason: Shortness Of Breath Or Wheezing) Dulera 200-5 mcg/actuation Hfa Aerosol Inhaler 2 puff INHALATION BID cinacalcet 90 mg tablet 90 mg PO QDD benzonatate 100 mg capsule 200 mg PO TID PRN (Reason: Cough) medroxyprogesterone [Depo-Provera] 150 mg/mL Suspension 150 mg IM UD Rx Instructions: Every 3 months calcium acetate(phosphat bind) 667 mg Capsule 2,001 mg PO UD Rx Instructions: take three tabs ( 2001mg) with each meal and two tabs ( 1334mg ) with each snack. varenicline 0.5 mg tablet 0.5 mg PO DAILY Qty: 30 0RF lidocaine 5 % ointment 1 applic topical QID PRN (Reason: pain) Qty: 30 3RF Rx Instructions: Apply to rectal area up to 4 times daily as needed. bupropion HCl 150 mg tablet extended release 24 hr 150 mg PO QAM mirtazapine 7.5 mg tablet 7.5 mg PO HS clopidogrel 75 mg Tablet 75 mg PO QAM Qty: 30 3RF aspirin 81 mg Tablet,Delayed Release (Dr/Ec) 81 mg PO QAM Qty: 30 0RF metoprolol succinate 25 mg Tablet Extended Release 24 Hr 25 mg PO BID Qty: 60 0RF gabapentin 100 mg capsule 200 mg PO TID Qty: 180 0RF pantoprazole 40 mg tablet,delayed release (DR/EC) 40 mg PO BID Qty: 60 0RF atorvastatin 40 mg tablet 40 mg PO DAILY Qty: 30 0RF Referrals Referrals: Adolph Aldridge MD [Primary Care Provider] -
[2024-07-15 09:46] LABS: Basophils # (auto) 0.03 K/uL (0.00-0.20); Basophils % (auto) 0.7 %; Eosinophils % (auto) 2.2 %; Hemoglobin 9.3 g/dl (12.0-16.0); Immature Granulocytes # (auto) 0.01 K/uL (0.01-0.20); Immature Granulocytes % (auto) 0.2 %; Lymphocytes # (auto) 0.62 K/uL (1.20-3.40); Lymphocytes % (auto) 13.9 %; Mean Corpuscular Hemoglobin 33.5 pg (25.0-34.0); Mean Corpuscular Hgb Conc 32.1 g/dL (32.0-36.0); Mean Corpuscular Volume 104.3 fL (80.0-100.0); Mean Platelet Volume 10.5 fL (9.4-12.4); Monocytes # (auto) 0.44 K/uL (0.11-0.59); Monocytes % (auto) 9.9 %; Neutrophils # (auto) 3.25 K/uL (1.40-6.50); Neutrophils % (auto) 73.1 %; Platelet Count 115 K/uL (130-400); RDW Coefficient of Variation 18.5 % (11.5-14.5); Red Blood Count 2.78 M/uL (4.20-5.40); White Blood Count 4.45 K/ul (4.8-10.8)
[2024-07-15 09:48] LABS: Albumin Globulin Ratio 1.7 (0.9-2); Albumin Level 4.1 gm/dl (3.4-5.0); BUN Creatinine Ratio 3.5 (10-20); Bilirubin,Total 0.5 mg/dl (0.2-1.0); Calcium 10.2 mg/dl (8.6-10.3); Creatinine Clr Calc Pharmacy 18.8 ml/min; Globulin 2.4 gm/dl (2.5-4.0); Potassium 3.4 mmol/L (3.5-5.1); Total Protein 6.5 gm/dl (6.0-8.3)
[2024-07-15 10:08] LABS: Troponin I High Sensitivity 51.8 pg/ml (0-14)
[2024-07-15] MEDS: ACETAMINOPHEN 1,000 MG/100 ML VIAL IV STA (10:49)
--- NOTE | 2024-07-15 12:33 | History & Physical Report ---
Date of Service July 15, 2024 Assessment & Plan (1) Chest pain: (2) Elevated troponin: Plan Alexandra Arguello is a 38y/o F with PMHx significant for chronic systolic heart failure [EF 45%, TTE 2023], diet-controlled DM type II, ESRD on hemodialysis, history of acute thrombosis of brachiocephalic vein, HTN, cardiomegaly, obstructive CAD s/p ARIEL to RCA + LAD, valvular heart disease (mild MR/MS), GERD, restless leg syndrome, atypical chest pain, colonic polyps/diverticulosis, history of syncope and collapse, bleeding hemorrhoids, chronic anemia [baseline Hgb ~8-9], history FSGS s/p failed renal transplantation, depression with anxiety, bipolar disorder and medical noncompliance who presented to the ED via EMS for evaluation of chest pain. Chest Pain, Elevated Troponin: EKG reviewed and without any overt evidence of ischemic changes. CXR personally reviewed and unremarkable. Initial troponin 51.8, repeat troponins 57.4 -> 59.6. Echo from 06/29/2024 reviewed, will hold off on repeat echo at this time. Continue to trend troponin Q6H. Appears her troponin is chronically elevated at baseline ~50-60 per chart review. Low suspicion for ACS at this time given chronically elevated troponin and unremarkable EKG. Routine repeat EKG tomorrow AM. EKG w/ worsening chest pain PRN. ESRD on Hemodialysis: Patient follows w/ Dr. Nieves. Undergoes dialysis M/W/F - she did not complete her full course of dialysis today. Electrolytes, Cr stable. Nephrology consult pending for dialysis management guidance. Can continue home cinacalcet, Renal-Rika. Diet-Controlled DM Type II: No home diabetic agents RADIO REPORTER, utilize SSI regimen while inpatient. BSG checks ACHS. Hgb A1c was 5.6% on 04/20/24. Continue CC, renal diet. Depression, Anxiety & Bipolar Disorder: Can continue home psychiatric medications. Patient denies any homicidal/suicidal ideations. Patient would ultimately benefit from inpatient psychiatric evaluation due to worsening anxiety and recent panic attacks. Other Chronic Medical Conditions: Asthma/HLD/CAD -> Can continue home medications for these specific conditions. DVT Prophylaxis: SCDs/TEDs for now Code Status: FULL CODE PCP: Adolph Aldridge MD Disposition: Observation in Med/Telemetry Patient seen in collaboration with Dr. Victor. Please see addendum. I spent a total of 70 minutes coordinating, documenting, and providing care for this patient excluding time spent in the performance of separately billed services. This included personally reviewing all current laboratories and imaging studies, medical reconciliation, outpatient chart review and discussion with specialists. This chart was completed in part utilizing Speech Voice Recognition Software. Grammatical errors, random word insertions, pronoun errors, and incomplete sentences are an occasional consequence of this system due to software limitations, ambient noise, and hardware issues. Any formal questions or concerns about the content, text, or information contained within the body of this dictation should be directly addressed to the provider for clarification. History of Present Illness Chief Complaint: Chest Pain Primary Care Provider: Adolph Aldridge MD Alexandra Arguello is a 38y/o F with PMHx significant for chronic systolic heart failure [EF 45%, TTE 2023], diet-controlled DM type II, ESRD on hemodialysis, history of acute thrombosis of brachiocephalic vein, HTN, cardiomegaly, obstructive CAD s/p ARIEL to RCA + LAD, valvular heart disease (mild MR/MS), GERD, restless leg syndrome, atypical chest pain, colonic polyps/diverticulosis, history of syncope and collapse, migraines, chronic anemia [baseline Hgb ~8-9], history FSGS s/p failed renal transplantation, depression with anxiety, bipolar disorder and medical noncompliance who presented to the ED via EMS for evaluation of chest pain. History obtained from the patient and associated chart review. Patient was at dialysis today when she had a panic/anxiety attack and developed 10/10 centralized chest pain that radiated around to her left back region. EMS was called to transport the patient to the ED; she received sublingual nitroglycerin x 2 and 324mg po ASA via EMS en route to the ED without any relief in her chest pain. She unfortunately did not complete her full session of dialysis today - reports she wasn't even assisted finished. She endorses some lightheadedness but denies any visual changes or recent fall/trauma. No abdominal pain, nausea or vomiting. She does not have any shortness of breath with the chest pain. Patient reports that her chest pain is still 9/10. She is requesting something for pain and anxiety. Patient was recently admitted under our service on 07/10/2024 to 07/11/2024 with complaints of chest pain. Cardiac workup at that time was rather unremarkable, her home rosuvastatin was changed to atorvastatin 40mg daily per cardiology's recommendation. Allergies Allergy/AdvReac Type Severity Reaction Status Date / Time cefaclor Allergy Intermediate Rash Verified 06/25/24 10:45 Cephalosporins Allergy Intermediate Rash Verified 06/25/24 10:45 amoxicillin AdvReac Intermediate VOMITING Verified 06/25/24 10:45 clavulanic acid AdvReac Intermediate VOMITING Verified 06/25/24 10:45 Home Medications Medication Instructions Recorded Confirmed Type albuterol sulfate 2.5 mg/3 mL 2.5 mg inhalation Q4H PRN 06/08/23 07/15/24 History (0.083 %) solution for nebulization Shortness Of Breath Or Wheezing albuterol sulfate 90 mcg/actuation 2 puff inhalation Q6H PRN 06/08/23 07/15/24 History aerosol inhaler Shortness Of Breath Or Wheezing carbamazepine 200 mg tablet 200 mg PO AMPM 06/08/23 07/15/24 History hydroxyzine HCl 25 mg tablet 25 mg PO Q6H PRN Anxiety 06/08/23 07/15/24 History lorazepam 0.5 mg tablet 0.5 mg PO Q8 PRN Anxiety 06/08/23 07/15/24 History mometasone-formoterol HFA 200 2 puff inhalation BID 06/08/23 07/15/24 History mcg-5 mcg/actuation aerosol inhaler (Dulera) vitamin B complex-vitamin C-folic 1 tab PO DAILY 06/08/23 07/15/24 History acid 0.8 mg tablet (Renal-Rika) benzonatate 100 mg capsule 200 mg PO TID PRN Cough 08/29/23 07/15/24 History calcium acetate(phosphat bind) 667 2,001 mg PO UD 08/29/23 07/15/24 History mg capsule cinacalcet 90 mg tablet 90 mg PO QDD 08/29/23 07/15/24 History medroxyprogesterone 150 mg/mL 150 mg IM UD 08/29/23 07/15/24 History intramuscular suspension (Depo-Provera) lidocaine 5 % topical ointment 1 applic topical QID PRN pain #30 04/11/24 07/15/24 Rx grams bupropion HCl 150 mg 24 hr tablet, 150 mg PO QAM 04/17/24 07/15/24 History extended release mirtazapine 7.5 mg tablet 7.5 mg PO HS 04/17/24 07/15/24 History varenicline 0.5 mg tablet 0.5 mg PO DAILY #30 tabs 04/30/24 07/15/24 Rx aspirin 81 mg tablet,delayed 81 mg PO QAM #30 tabs 05/09/24 07/15/24 Rx release clopidogrel 75 mg tablet 75 mg PO QAM #30 tabs 05/09/24 07/15/24 Rx metoprolol succinate 25 mg 25 mg PO BID #60 tabs 05/09/24 07/15/24 Rx tablet,extended release 24 hr gabapentin 100 mg capsule 200 mg (2 x 100 mg) PO TID #180 05/10/24 07/15/24 Rx caps pantoprazole 40 mg tablet,delayed 40 mg PO BID #60 tabs 05/10/24 07/15/24 Rx release atorvastatin 40 mg tablet 40 mg PO DAILY #30 tabs 07/11/24 07/15/24 Rx Past Med/Surg History Problem List Chest pain (Acute) HTN, goal below 130/80 Dyslipidemia, goal LDL below 70 Stented coronary artery Premature coronary artery disease Chest pain at rest Chest pain (Acute) Rhinovirus infection Ischemic cardiomyopathy S/P right coronary artery (RCA) stent placement Status post insertion of drug-eluting stent into left anterior descending (LAD) artery History of heart artery stent (Acute) Coronary artery disease (Acute) ESRD (end stage renal disease) on dialysis (Acute) Substernal chest pain (Acute) Atypical chest pain (Acute) Anemia (Acute) Atypical chest pain (Acute) Abnormal laboratory test (Acute) Coronary artery disease due to calcified coronary lesion Dialysis complication (Acute) Syncope (Acute) Acute hyperkalemia (Acute) Symptomatic anemia (Acute) Episode of syncope Rectal bleeding Chest pain (Acute) ESRD on dialysis (Acute) Acute hyperkalemia (Acute) Elevated troponin (Acute) Chest pain not due to acute coronary syndrome (Acute) Bleeding external hemorrhoids (Acute) Non-compliance (Acute) Fluid overload (Acute) Uremia (Acute) Anemia (Acute) Depression (Acute) Weakness (Acute) Sleep deprivation (Acute) Hallucinations (Acute) Anemia (Acute) Dialysis patient (Acute) Medical non-compliance (Acute) Acute uremia (Acute) Shortness of breath (Acute) Elevated troponin (Acute) Acute hyperkalemia (Acute) SOB (shortness of breath) (Acute) SOB (shortness of breath) (Acute) CHF (congestive heart failure) (Acute) Acute uremia (Acute) Somnolence (Acute) Medical non-compliance (Acute) Elevated troponin (Acute) Dialysis patient (Acute) Renal failure (Acute) Hyperkalemia (Acute) Thrombocytopenia COVID-19 (Acute) Renal osteodystrophy Anemia in ESRD (end-stage renal disease) ESRD (end stage renal disease) on dialysis (Acute) DM2 (diabetes mellitus, type 2) (Acute) Anxiety Depression Major depressive disorder, recurrent, in partial remission Depression with anxiety Anemia of chronic disease Status post fall last fallNovember 2022 > nasal fx / knee pain, no surgery for either injury > resolved per pt report Prolonged QT interval (Acute) no cardio HTN (hypertension) (Acute) Anemia due to end stage renal disease (Acute) FSGS (focal segmental glomerulosclerosis) (Chronic) DX INITIALLY 2012 (CAUSING ESRD 2012) Medical History Mood disorder Anxiety disorder, unspecified Abnormal chest xray Elevated lactic acid level Transaminitis Pneumonia Metabolic encephalopathy Acute non-ST elevation myocardial infarction (NSTEMI) Pulmonary edema Acute hyperkalemia Acute alteration in mental status Renal failure (ARF), acute on chronic Encephalopathy Facial fracture GI bleed ESRD (end stage renal disease) on dialysis Symptomatic anemia Tobacco abuse DVT prophylaxis Fistula right arm (currently being used) and left arm Dialysis patient SATURDAY/SAT/SATURDAY AT [facility] GERD (gastroesophageal reflux disease) Bipolar disorder Restless leg syndrome Peripheral neuropathy Asthma rare res inh use History of abnormal cervical Papanicolaou smear Elevated troponin Acute electrocardiogram changes Surgical History H/O eye surgery LASER SURGERY LEFT History of surgery left arm d/t clot in arm from AV fistula use @ [facility] History of surgery (~09/09/20) perm cath > since removed History of colonoscopy Kidney transplant recipient 2013 AT [facility] History of tooth extraction three TOOTH History of cardiac cath 2017 NO STENTS AVF (arteriovenous fistula) bilat upper arms ---currently using right for dialysis Family History Grandmother Hx of CABG Mother Diabetes Father Crohn's disease Grandfather (Maternal) Diabetes Uncle Diabetes Grandmother (Maternal) Family history of reaction to anesthesia difficulty waking with colonoscopy Social History Smoking Status: Former smoker Tobacco Type: Cigarettes Cigarettes Per Day: 20; Second Hand Exposure: Yes (on occasion); Do You Dip or Chew Tobacco: No; Hx Alcohol Use: Yes Alcohol type: hard liquor Alcohol Intake Frequency Comment: q3 months Hx Substance Use: No Preferred Language: Citizen Of [place] Communication Ability: Effective Ripsaw Matcher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 Beliefs That Will Affect Care: None marital status: Single Current Living Situation: Family Current Living Situation Comment: grandparents How many Children do You have: 3 Feels Safe at Home: Yes Assistive Devices: None Review of Systems Review of Systems: At least ten systems reviewed and negative, except as noted in the HPI. Physical Exam Physical Exam: General: NAD, sitting up in bed, appears rather anxious, conversing appropriately. A+Ox3, flat affect. HEENT: Normocephalic, atraumatic. Conjunctivae normal, anicteric sclerae. Cardiac Catheterization Technologist al ear and nose normal, oropharynx normal. Respiratory: Normal respiratory effort, lungs clear to auscultation, no wheeze, rales, rhonchi. No accessory muscle use. Cardiovascular: Regular rate, rhythm, no murmur, normal peripheral pulses, no BLE edema. Vessels: No JVD. Abdomen/GI: Normal bowel sounds, soft, nontender to palpation in all quadrants. Extremities/Musculoskeletal: No cyanosis or clubbing, extremities motor strength not tested, moves all extremities. Neurologic: No focal deficits, CN's II-XI not formally tested but appear grossly intact bilaterally. Skin: No rashes, normal color, warm/dry. Results & Data Results & Data Vital Signs (Past 12 Hours) Vital Signs Temp Pulse Pulse Resp BP BP Pulse Ox 07/15/24 12:17 78 16 133/82 99 07/15/24 11:28 84 07/15/24 10:33 82 16 130/80 97 07/15/24 10:00 98 07/15/24 09:27 16 136/82 98 07/15/24 07:48 36.8 C 92 H 18 89/62 L 98 07/15/24 07:44 101 H O2 Del Method 07/15/24 12:17 Room Air 07/15/24 11:28 07/15/24 10:33 07/15/24 10:00 07/15/24 09:27 07/15/24 07:48 Room Air 07/15/24 07:44 Laboratory Results Short CBC 07/15/24 Range/Units 08:40 WBC 4.45 L (4.8-10.8) K/ul Hgb 9.3 L (12.0-16.0) g/dl Hct 29.0 L (37.0-47.0) % Plt Count 115 L (130-400) K/uL BMP 07/15/24 08:40 Sodium 139 Potassium 3.4 L Chloride 93 L Carbon Dioxide 37 H BUN 15 Creatinine 4.30 H Glucose 134 H Calcium 10.2 Liver Function 07/15/24 Range/Units 08:40 Total Bilirubin 0.5 (0.2-1.0) mg/dl AST 18 (13-39) U/L ALT 9 (7-52) U/L Alkaline Phosphatase 116 H (34-104) U/L Albumin 4.1 (3.4-5.0) gm/dl Diagnostic Findings Chest X-Ray 07/15/24 07:49 XR chest 1V portable CLINICAL HISTORY: Chest pain, nonspecific COMPARISON STUDY: Chest radiograph and chest CT July 10, 2024. FINDINGS: Lung volumes are normal. Lungs are clear. There is no pneumothorax or pleural effusion. Cardiomegaly is unchanged. Several vascular stents are again noted. Mediastinal contours are normal. There is no evidence for pulmonary edema. IMPRESSION: No acute cardiopulmonary findings. No change in appearance of the chest. ACT 112: Negative or not required by law. Electronically signed by: Sebastian Mcclain M.D. 07/15/2024 8:40 AM Medications Administered Discontinued Medications Acetaminophen (Ofirmev) 1,000 mg in 100 mls @ 400 mls/hr IV NOW STA Stop: 11/20/24 10:30 Last Infusion: 07/15/24 11:20 Dose: Infused Documented By: [facility] Admin: 07/15/24 10:49 Dose: 400 mls/hr Documented By: MR Code Status & VTE Plan Code Status FULL CODE Supervising Physician Co-Signing Physician Notes 07/15/2024 The patient was seen and examined in emergency room She has been complaining of chest pain off and on for the last 2 weeks or so She has been in the hospital recently for chest pain and was evaluated by respite care provider without any evidence of ACS Complained of chest pain during dialysis today and could not finish the dialysis During my examination is still having chest pain but did not have any other associated symptoms of nausea, vomiting, sweating, radiation and shortness of breath or palpitation On examination Lying in bed without any apparent distress but looks very anxious Remains hemodynamically stable Chestclear to auscultate bilaterally HeartS1, S2 regular Abdomenbenign Extremitiesno edema Her admission labs and EKG reviewed Has been having chest pain with significant medical history of cardiac disease and has mildly elevated troponin Doubt any ACS given chronically elevated troponin without any significant escalation of the level and without any EKG finding. Will need to observe in medical telemetry unit and serial troponins will be done She seems to be very anxious and her anxiety medications need to be adjusted Will need to have a psychiatric evaluation while in the hospital District Scout Executive will be consulted for ongoing dialysis Agree with Radha Ga PA-C and take the full responsibility of care Dr Joaquina Victor (1) Chest pain Chest pain type: unspecified Qualified Code(s): R07.9 - Chest pain, unspecified
[2024-07-15] MEDS ORDERED: LORazepam 0.5 MG TAB PO PRN (14:30)
[2024-07-15] MEDS ORDERED: hydrOXYzine HCl 25 MG TAB PO PRN (14:30)
[2024-07-15] MEDS: LORazepam 2 MG/1 ML VIAL IV STA (14:44)
[2024-07-15] MEDS: traMADol HCL 50 MG TABLET PO STA (16:09)
[2024-07-15] MEDS ORDERED: CALCIUM ACETATE 667 MG CAP/TAB PO PRN (16:23)
[2024-07-15] MEDS ORDERED: PROMETHAZINE 6.25 MG/50.25 ML BAG IV PRN (16:37)
[2024-07-15] MEDS ORDERED: ACETAMINOPHEN 325 MG TAB PO PRN (16:37)
[2024-07-15] MEDS ORDERED: DEXTROSE 50% 50 ML SYRINGE IV PRN (17:53)
[2024-07-15] MEDS ORDERED: GLUCOSE 10 TAB/TUBE PO PRN (17:53)
[2024-07-15] MEDS ORDERED: CARBOHYDRATES FOR HYPOGLYCEMIA PO PRN (17:53)
[2024-07-15] MEDS ORDERED: GLUCOSE 40% GEL 15 GM TUBE PO PRN (17:53)
[2024-07-15] MEDS ORDERED: GLUCAGON FOR INJ 1 MG VIAL SQ PRN (17:53)
[2024-07-15] MEDS: CINACALCET HCL 90 MG TAB PO SCH (18:03)
[2024-07-15] MEDS: CALCIUM ACETATE 667 MG CAP/TAB PO SCH (18:04)
[2024-07-15] MEDS: HYDROmorphone INJ 0.5 MG/0.5 ML SYR IV STA ×2 (18:34→20:55)
[2024-07-15] MEDS: carBAMazepine 200 MG TABLET PO SCH (20:43)
[2024-07-15] MEDS: PANTOprazole 40 MG TAB PO SCH (20:43)
[2024-07-15] MEDS: METOPROLOL SUCC 25MG EXT REL TAB PO SCH (20:43)
[2024-07-15] MEDS: GABAPENTIN 100 MG CAP PO SCH (20:43)
[2024-07-15] MEDS: MIRTAZAPINE TAB 15 MG TAB PO SCH (20:57)
[2024-07-15] MEDS: INSULIN ASPART PER UNIT CHARGE SC SCH (21:02)
--- NOTE | 2024-07-15 21:18 | Electrocardiogram Report ---
Test Reason : Blood Pressure : */* mmHG Vent. Rate : 100 BPM Atrial Rate : 100 BPM P-R Int : 160 ms QRS Dur : 102 ms QT Int : 410 ms P-R-T Axes : 38 -32 31 degrees QTcB Int : 528 ms Normal sinus rhythm Possible Left atrial enlargement Left axis deviation Left ventricular hypertrophy ( R in aVL , Sagar product ) Cannot rule out Septal infarct , age undetermined Possible Lateral infarct (cited on or before 21-Mar-2018) Prolonged QT Abnormal ECG When compared with ECG of 10-Jul-2024 18:41, No significant change was found Confirmed by Johny Rodriguez ([id number]) on 07/15/2024 9:18:32 PM Referred By: REFERRED SELF Confirmed By: Johny Rodriguez
--- OUTSIDE RECORDS SUMMARY | 2024-07-15 21:55 | External Medical Summary | Summary of Care ---
Author Name Unknown Organization [facility] Address [address] [place] [address] Phone [phone] Care Team Providers Care Enterprise Systems Manager Name Role Phone Adolph Aldridge MD Primary Care Provider [phone] Encounter Details Date Type Department Care Team (Late st Contact Info) Description 07/13/2024 Population Health External Data Unspecified Department Allergies Active Allergy Reactions Criticality Noted Date Comments Amoxicillin Low 01/27/2021 Other reaction(s): VOMITING Cefaclor Rash Low 11/23/2011 Cephalosporins Rash Low 05/16/1999 documented as of this encounter (statuses as of 07/13/2024) Medications Calcium Acetate (Phos Binder) 667 MG [...] Tablet 03/14/20 22 Active OneTouch Delica Plus [id number] ons:DM type 2 with diabetic peripheral neuropathy [...] goal of less than 7.0% ([facility]) Use to check sugars continuously. E 11.9 change every 10 days 3 Each 11 01/06/20 24 Active hydrOXYzine HCl 25 MG Oral Tablet TAKE 1 TABLET BY MOUTH EVERY 6 HOURS NEEDED FOR ANXIETY 02/12/20 24 Active Dexcom G7 Gear Roller Device USE DAILY TO CHECK BLOOD SUGARS [...] 06/26/20 24 Active Benzonatate 100 MG Oral CapsuleIndication s:Chronic cough Take 2 Capsules by mouth 3 times a day as needed for Cough. 30 Capsule 1 07/06/20 24 Active documented as of this encounter (statuses as of 07/13/2024) Active Problems Problem Noted Date Diagnosed Date Chronic total occlusion of coronary artery 06/09 S/P primary angioplasty with coronary stent 04/27 Bleeding hemorrhoids 05/21/2024 Coronary artery disease involving [place] coronar y artery 05/21/2024 HFrEF (heart failure [...] as of this encounter (statuses as of 07/13/2024) Resolved Problems Problem Noted Date Diagnosed Date [...] and PP sugars <120. Report levels to [facility] department weekly. 10. Advised patient that Glyburide, Metformin, and insulin may be safely used during for the control of blood sugar levels. Alexandra will begin her insulin therapy today. 11. Dietary consult to be done to instruct patient on appropriate nutrition and diet to aid in control of blood sugars. 12. Recommend urine culture each trimester. 13. Recommend [facility] ultrasound for limited anatomy at 12-14 [...] if early screen is normal. 5. Recommend [facility] ultrasound for anatomy screen at 20 [...] repepat OB Orville Flor 03/19/2011 01/29/20 17 Overview (08/09/2011): 03/19/[address] [facility] once MA active. Marva RN- [...] as of this encounter (statuses as of 07/13/2024) Immunizations Name Administration Dates Next Due COVID-19 [...] Angela Haynes RN documented in this encounter Plan of Treatment Upcoming Encounters Date Type Department Care Team (Late st Contact Info) Description 09/01/2024 1:40 PM EST Office Visit [facility] [address] [place] [address] Adolph Aldridge MD [address] [place] [address] 04/01/2025 2:40 PM EDT Telemedicine Neurology [address] [place] [id number] Eros Marks, DO [address], [place] [id number] Scheduled Procedures Name Priority Associated Diagnoses Date/Ti [...] encounter Medical Devices Implanted Type Area Manager Land Device Identifier Shelf Expiration Date Model / Serial / Lot Stent Protege Gps [id number] - [id number] Implanted:Qty : 1 on 09/29/2020 by Carmelo Ramos MD at OR [facility] Left: Chest [employer] : VASCULAR [id number] 09/20/2022 [id number] / / [id number] Stent Viab [id number] - [id number] Implanted:Qty : 1 on 04/16/2023 by Carmelo Ramos MD at OR [facility] Right: Subclavian [employer] [id number] 01/26/2026 [id number] / [id number] / [id number] Stent Synergy Xd Mr [id number] - [id number] Implanted:Qty : 1 on 06/09/2024 by Diamond Mcgowan MD at CARDIAC LABS [facility] Clarity [id number] 01/21/2026 [id number] / / [id number] documented as of this encounter Advance Directives [...] Advance Directives occurred with: Patient Care Teams Enterprise Systems Manager Relationship Specialty Start Date End Date Adolph Aldridge MD [address] [place] [address] PCP - General Family Medicine 10/21/18 documented as of this encounter
[2024-07-16] MEDS: HYDROmorphone INJ 0.5 MG/0.5 ML SYR IV STA ×2 (05:38→20:33)
[2024-07-16 06:42] LABS: Hematocrit (blood only) 30.3 % (37.0-47.0); Hemoglobin 9.6 g/dl (12.0-16.0); Mean Corpuscular Hemoglobin 33.3 pg (25.0-34.0); Mean Corpuscular Hgb Conc 31.7 g/dL (32.0-36.0); Mean Corpuscular Volume 105.2 fL (80.0-100.0); Mean Platelet Volume 10.1 fL (9.4-12.4); Platelet Count 105 K/uL (130-400); RDW Coefficient of Variation 18.6 % (11.5-14.5); RDW Standard Deviation 69.7 fL (36.4-46.3); Red Blood Count 2.88 M/uL (4.20-5.40); White Blood Count 3.73 K/ul (4.8-10.8)
[2024-07-16 07:09] LABS: BUN Creatinine Ratio 3.7 (10-20); Calcium 9.1 mg/dl (8.6-10.3); Creatinine Clr Calc Pharmacy 13.7 ml/min; Magnesium 2.2 mg/dl (1.7-2.4)
[2024-07-16] MEDS: CLOPIDOGREL BISULFATE 75 MG TAB PO SCH (08:32)
[2024-07-16] MEDS: ASPIRIN 81 MG ECTAB PO SCH (08:32)
[2024-07-16] MEDS: NEPHROCAPS PO SCH (08:32)
[2024-07-16] MEDS: buPROPion XL 150 MG TABCR PO SCH (08:32)
[2024-07-16] MEDS: ATORVASTATIN 40 MG TAB PO SCH (08:32)
[2024-07-16] MEDS: FLUTICASONE/VILANTEROL 200/25MCG 14 PUFFS/INHALER INH SCH (08:32)
--- NOTE | 2024-07-16 09:07 | Nephrology Consultation ---
Date of Consultation July 16, 2024 Assessment & Plan (1) ESRD (end stage renal disease) on dialysis: missed 2 hrs of HD yesterday ; that said her volume status today is acceptable (not hypoxic, CXR clear, SBP controlled) and chemistries at goal w k 4; she was also yesterday uncharacteristically close to her TW and appears euvolemic today on exam >> will defer further HD today; routine HD tomorrow > orders in > 2L uf as tolerated; 4h tx; 2K/1K hep bolus (will review platelets) max dose epo; t sat earlier this month as OP 30% Care coordinated w/ Dr Garcia and AMY Marrufo re chest pain etiology and mgt/work up, timiing of dialysis; we are in agreement. (2) Chest pain: non cardiac anxiety versus musculoskeletal > defer to primary service to manage > avoid nsaids >>though I do not believe this is cardiac, have been working as OP to maintain hgb >8 to avoid worsening CP d/t anemia; hgb today 9.6 History of Present Illness Reason for Consultation: ESRD on HD Requesting Physician: Dr Victor Attending Physician: Lindsay Garcia MD History of Present Illness 38 y/o F whom I'm asked to see for ESRD on HD came to ER yesterday for evaluation of chest pain which came on during dialysis in the setting of a panic attack. PMH includes 05/07/24 L heart cath w/ urgent distal R coronary artery stent and severe multivessel coronary disease on aspirin and plavix, also s/p LAD stent 05/2024; TTE w/ HF/ hypokinesis (EF 35%); hx large bleeding hemorrhoids, DM2, HTN, GERD, hx of failed renal transplant, bipolar disorder/anxiety, restless leg syndrome; hx of acute thrombosis of brachiocephalic vein, s/p summer 2023 pelvic fracture (second one / likely related to renal osteodystrophy) causing her pain and somewhat limiting ambulation. She is frequently nonadherent to OP treatments d/t uncontrolled anxiety and/or other psychosocial issues. She was admitted here earlier this month for chest pain 06/29 and 07/10 >> both deemed noncardiac. Her troponin on presentation was 52 and uptrended to 60 > these are routine levels for her. primary service workign on anxiety with pt > intensifying pain regimen. Cardiology again evaluated her >> no additional w/u; dx remains noncardiac CP. she tells me that chest pain began at about midnight on Sat evening into Saturday and continued through evening into HD. 06/04 stabbing pain going through her to L shoulderblade from distal sternum (but also states pain wraps leftward around chest to scapular area. no activities/positions make it better or worse > no relation to eating, lying down/standing up, exertion, dialysis. She completed 70 minutes of her prescribed 240 minute treatment. Her target weight is 77.5 and she left at 77.7; presented at 78.6; SBP were maintained through the treatment. she has been doing better very recently at controlling interdialytic weight gain. no n/v/abd pain/diarrhea; she is anuric; no sob, palpitations, cough, orthopnea. did have a recent URI but mostly over UR sx w/ that. no edema. ongoing sternal pain; also some pelvic skeleton pain Allergies Allergy/AdvReac Type Severity Reaction Status Date / Time cefaclor Allergy Intermediate Rash Verified 06/25/24 10:45 Cephalosporins Allergy Intermediate Rash Verified 06/25/24 10:45 amoxicillin AdvReac Intermediate VOMITING Verified 06/25/24 10:45 clavulanic acid AdvReac Intermediate VOMITING Verified 06/25/24 10:45 Home Medications Medication Instructions Recorded Confirmed Type albuterol sulfate 2.5 mg/3 mL 2.5 mg inhalation Q4H PRN 06/08/23 07/15/24 History (0.083 %) solution for nebulization Shortness Of Breath Or Wheezing albuterol sulfate 90 mcg/actuation 2 puff inhalation Q6H PRN 06/08/23 07/15/24 History aerosol inhaler Shortness Of Breath Or Wheezing carbamazepine 200 mg tablet 200 mg PO AMPM 06/08/23 07/15/24 History hydroxyzine HCl 25 mg tablet 25 mg PO Q6H PRN Anxiety 06/08/23 07/15/24 History lorazepam 0.5 mg tablet 0.5 mg PO Q8 PRN Anxiety 06/08/23 07/15/24 History mometasone-formoterol HFA 200 2 puff inhalation BID 06/08/23 07/15/24 History mcg-5 mcg/actuation aerosol inhaler (Dulera) vitamin B complex-vitamin C-folic 1 tab PO DAILY 06/08/23 07/15/24 History acid 0.8 mg tablet (Renal-Rika) benzonatate 100 mg capsule 200 mg PO TID PRN Cough 08/29/23 07/15/24 History calcium acetate(phosphat bind) 667 2,001 mg PO UD 08/29/23 07/15/24 History mg capsule cinacalcet 90 mg tablet 90 mg PO QDD 08/29/23 07/15/24 History medroxyprogesterone 150 mg/mL 150 mg IM UD 08/29/23 07/15/24 History intramuscular suspension (Depo-Provera) lidocaine 5 % topical ointment 1 applic topical QID PRN pain #30 04/11/24 07/15/24 Rx grams bupropion HCl 150 mg 24 hr tablet, 150 mg PO QAM 04/17/24 07/15/24 History extended release mirtazapine 7.5 mg tablet 7.5 mg PO HS 04/17/24 07/15/24 History varenicline 0.5 mg tablet 0.5 mg PO DAILY #30 tabs 04/30/24 07/15/24 Rx aspirin 81 mg tablet,delayed 81 mg PO QAM #30 tabs 05/09/24 07/15/24 Rx release clopidogrel 75 mg tablet 75 mg PO QAM #30 tabs 05/09/24 07/15/24 Rx metoprolol succinate 25 mg 25 mg PO BID #60 tabs 05/09/24 07/15/24 Rx tablet,extended release 24 hr gabapentin 100 mg capsule 200 mg (2 x 100 mg) PO TID #180 05/10/24 07/15/24 Rx caps pantoprazole 40 mg tablet,delayed 40 mg PO BID #60 tabs 05/10/24 07/15/24 Rx release atorvastatin 40 mg tablet 40 mg PO DAILY #30 tabs 07/11/24 07/15/24 Rx Patient History Medical History Mood disorder Anxiety disorder, unspecified Abnormal chest xray Elevated lactic acid level Transaminitis Pneumonia Metabolic encephalopathy Acute non-ST elevation myocardial infarction (NSTEMI) Pulmonary edema Acute hyperkalemia Acute alteration in mental status Renal failure (ARF), acute on chronic Encephalopathy Facial fracture GI bleed ESRD (end stage renal disease) on dialysis Symptomatic anemia Tobacco abuse DVT prophylaxis Fistula right arm (currently being used) and left arm Dialysis patient SATURDAY/SAT/SATURDAY AT [facility] GERD (gastroesophageal reflux disease) Bipolar disorder Restless leg syndrome Peripheral neuropathy Asthma rare res inh use History of abnormal cervical Papanicolaou smear Elevated troponin Acute electrocardiogram changes Surgical History H/O eye surgery LASER SURGERY LEFT History of surgery left arm d/t clot in arm from AV fistula use @ [facility] History of surgery (~09/09/20) perm cath > since removed History of colonoscopy Kidney transplant recipient 2013 AT [facility] History of tooth extraction three TOOTH History of cardiac cath 2016 NO STENTS AVF (arteriovenous fistula) bilat upper arms ---currently using right for dialysis Family History Grandmother Hx of CABG Mother Diabetes Father Crohn's disease Grandfather (Maternal) Diabetes Uncle Diabetes Grandmother (Maternal) Family history of reaction to anesthesia difficulty waking with colonoscopy Social History Smoking Status: Former smoker Tobacco Type: Cigarettes Cigarettes Per Day: 20; Second Hand Exposure: Yes (on occasion); Do You Dip or Chew Tobacco: No; Hx Alcohol Use: No Hx Substance Use: Yes Substance Use Type Other:: THC to help with sleep Preferred Language: Chadian Communication Ability: Effective Handle Turner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 Beliefs That Will Affect Care: None marital status: Single Current Living Situation: Family Current Living Situation Comment: grandparents How many Children do You have: 3 Feels Safe at Home: Yes Safety Concerns: Feels Safe At This Time Assistive Devices: None Review of Systems 2 Review of Systems: All systems reviewed & are unremarkable except as noted in HPI & below Physical Exam 2 Constitutional: well developed and well nourished Eyes: EOM intact bilaterally ENMT: Mouth: + dry oral mucous membranes Respiratory: normal respiratory effort Auscultation: + diminished lung sounds Cardiovascular: RRR, no murmur, no edema Extremities: + AV fistula (+t/b) Gastrointestinal (Abdomen): Inspection/Auscultation: normal bowel sounds P ercussion/Palpation: abdomen soft; abdomen nontender Musculoskeletal: Extremities: strength 5/5 throughout Skin: no rashes, warm and dry Neurologic: sandy, fluent speech, no tremor Results & Data Vital Signs (Past 12 Hours) Vital Signs Temp Pulse Pulse Resp BP BP Pulse Ox 07/16/24 08:01 36.4 C L 69 18 117/67 98 07/16/24 07:11 68 07/16/24 04:06 36.3 C L 70 16 120/77 98 07/15/24 23:24 36.3 C L 81 16 140/73 99 07/15/24 22:10 83 O2 Del Method 07/16/24 08:01 Room Air 07/16/24 07:11 07/16/24 04:06 Room Air 07/15/24 23:24 Room Air 07/15/24 22:10 Laboratory Results 07/16/24 06:11 07/16/24 06:11 Diagnostic Findings CXR clear lungs; no acute cp process seen
--- NOTE | 2024-07-16 09:53 | Cardiology Consultation ---
Date of Consultation July 16, 2024 Assessment & Plan (1) Atypical chest pain: (2) Chronic chest pain: (3) Premature coronary artery disease: (4) HTN, goal below 130/80: (5) Stented coronary artery: (6) Ischemic cardiomyopathy: (7) ESRD (end stage renal disease) on dialysis: Plan Complex 38-year-old female with end-stage renal disease admitted with anxiety/panic and atypical chest discomfort aggravated by laying on her left side. EKG without acute change. High sensitivity troponin chronically mildly elevated. Telemetry benign thus far. No further cardiac workup recommended for the noncardiac chest pain. Volume managed via hemodialysis. Continue dual antiplatelet therapy with aspirin and clopidogrel Continue guideline directed beta-pool therapy with metoprolol succinate. Add low-dose losartan, RE ischemic cardiomyopathy (EF 40 to 44% in April 27), unless contraindicated from a renal standpoint Continue atorvastatin 40 mg/day. Supervising Physician Co-Signing Physician Notes Attending attestation: Case reviewed with the advanced practitioner. I have personally performed a history and physical examination on the patient. I have reviewed the advanced practitioner's documentation on the date of service referenced in note, and I agree with, and take responsibility for the plan of care. Subjective: Patient notes ongoing chest discomfort, stabbing discomfort central and left-sided chest. She states it is different a characteristic than the discomfort that prompted her recent coronary stents. Denies worsening discomfort with deep inspiration. Not reproducible with palpation of the chest. Exam: Cardiovascular: Regular rhythm, no murmurs, no reproduction of chest discomfort with palpation Data: Mild troponin elevation, flat trend EKG COVID-19 positive test (U07.1, COVID-19) with Viral Sepsis (A41.89 other specified sepsis) (If respiratory failure present, add as separate assessment) Admission revealed sinus rhythm with poor R wave progression in the precordial leads suggestive of age-indeterminate anterior and lateral infarct pattern, no acute repolarization abnormalities, unchanged compared to previous recent tracings. Impression/ Plan: -If the patient were to have have a problem with her recently placed RCA and LAD stents, I would expect for her to have straightforward angina symptoms, EKG changes and markedly elevated troponin. Workup thus far is felt to be reassuring. -Recommend continuing current cardiac medications including dual antiplatelet therapy with aspirin and clopidogrel, metoprolol, atorvastatin. -No further cardiac testing felt to be indicated at present. Farooq Ross, DO History of Present Illness Reason for Consultation: Chest pain at HD. H/o HFrEF, CAD s/p stent Requesting Physician: Lindsay Garcia MD Attending Physician: Lindsay Garcia MD History of Present Illness Alexandra Arguello is a complex 38-year-old female who is being seen today at the request of Dr. Garcia. Reason for consultation is chest pain. "They have not gone away. Yesterday it was going around my back to my shoulder blade. On top of that I had anxiety." The patient describes sharp and throbbing 10 out of 10 chest discomfort radiating to the left shoulder blade. This discomfort has essentially allen present for the last two weeks. It has transiently resolved for an hour or so but returns. No associated symptomatic. The discomfort is aggravated by laying on her left side for a few minutes. Factors which relieve the discomfort are not identified. EKG without acute change. High-sensitivity troponin chronically minimally elevated, as follows this admission: 51.8 -> 57.4 -> 59.6 -> 60.7 -> 53.1 -> 52.3 pg/mL. Chest x-ray this admission without acute cardiopulmonary findings. Chest CTA on July 10, 2024 with high-grade stenosis involving the left brachiocephalic venous graft resulting in numerous chest wall collaterals, negative for pulmonary emboli, pulmonary edema, pleural effusion, thoracic aortic aneurysm or dissection. Past Medical and Surgical History: History of FSGS, failed renal transplant, end-stage renal disease on hemodialysis, with known noncompliance and frequently missed treatments ASCVD January 26, 2017 [place] The coronary arteries are angiographically normal. The left ventricular end-diastolic pressure is nor mal. Very poor pain tolerance noted. Possible drug-seeking behavior. During "06/04" chest pain on floor patient was observed to be calmly working on a crossword puzzle. Mildly dilated LV with mild diffuse global hypokinesis, EF 50%. May 07, 2020 for acute coronary syndrome, coronary angiography by Dr. Britton at [facility] revealing severe multivessel coronary artery disease with 100% mid LAD total occlusion with distal vessel filling via left to left and right to left collaterals, 100% ostial occlusion of the first diagonal branch filling partially via left to left collaterals, 95% calcified bifurcation lesion in the distal RCA into the BAV and 98% ostial RPDA stenosis. Status post successful PCI of the distal RCA into the right posterior AV branch with a single drug- eluting stent. Angioplasty of the ostial RPDA prior to stenting with multiple balloon and attempted intravascular lithotripsy, unable to pass stent across calcified ostium. Post procedure with jailed PDA with severe residual ostial stenosis but AIDA-3 flow. June 09, 2024 Coronary [place]gow[place]): Hemodynamically significant coronary artery disease. Mid LAD with 100% chronic total occlusion with bridging collaterals. 60 to 70% first obtuse marginal stenosis. Widely patent distal RCA stent. 70% ostial stenosis of the RPDA with AIDA III flow. Status post PCI of the LAD occlusion with a 2.75 x 38 mm Synergy drug-eluting stent with excellent angiographic result. Systolic congestive heart failure, NYHA class III, ischemic cardiomyopathy, LVEF 40 to 44% Hypertension Dyslipidemia Type 2 diabetes mellitus Anemia of chronic disease Bipolar disorder GERD Bleeding hemorrhoids Anxiety and depression History of tobacco abuse, recently reformed Family History: Father committed suicide. Mother is alive without cardiac issues. Brother at 19 months, congenital heart disease, bleeding issues. Maternal grandmother had congenital heart disease, details unknown. Sister without cardiac issues Social History: Reformed smoker having quit in April 2024. No significant alcohol. THC Gummies. Disabled. Two children without cardiac issues. Allergies Allergy/AdvReac Type Severity Reaction Status Date / Time cefaclor Allergy Intermediate Rash Verified 06/25/24 10:45 Cephalosporins Allergy Intermediate Rash Verified 06/25/24 10:45 amoxicillin AdvReac Intermediate VOMITING Verified 06/25/24 10:45 clavulanic acid AdvReac Intermediate VOMITING Verified 06/25/24 10:45 Home Medications Medication Instructions Recorded Confirmed Type albuterol sulfate 2.5 mg/3 mL 2.5 mg inhalation Q4H PRN 06/08/23 07/15/24 History (0.083 %) solution for nebulization Shortness Of Breath Or Wheezing albuterol sulfate 90 mcg/actuation 2 puff inhalation Q6H PRN 06/08/23 07/15/24 History aerosol inhaler Shortness Of Breath Or Wheezing carbamazepine 200 mg tablet 200 mg PO AMPM 06/08/23 07/15/24 History hydroxyzine HCl 25 mg tablet 25 mg PO Q6H PRN Anxiety 06/08/23 07/15/24 History lorazepam 0.5 mg tablet 0.5 mg PO Q8 PRN Anxiety 06/08/23 07/15/24 History mometasone-formoterol HFA 200 2 puff inhalation BID 06/08/23 07/15/24 History mcg-5 mcg/actuation aerosol inhaler (Dulera) vitamin B complex-vitamin C-folic 1 tab PO DAILY 06/08/23 07/15/24 History acid 0.8 mg tablet (Renal-Rika) benzonatate 100 mg capsule 200 mg PO TID PRN Cough 08/29/23 07/15/24 History calcium acetate(phosphat bind) 667 2,001 mg PO UD 08/29/23 07/15/24 History mg capsule cinacalcet 90 mg tablet 90 mg PO QDD 08/29/23 07/15/24 History medroxyprogesterone 150 mg/mL 150 mg IM UD 08/29/23 07/15/24 History intramuscular suspension (Depo-Provera) lidocaine 5 % topical ointment 1 applic topical QID PRN pain #30 04/11/24 07/15/24 Rx grams bupropion HCl 150 mg 24 hr tablet, 150 mg PO QAM 04/17/24 07/15/24 History extended release mirtazapine 7.5 mg tablet 7.5 mg PO HS 04/17/24 07/15/24 History varenicline 0.5 mg tablet 0.5 mg PO DAILY #30 tabs 04/30/24 07/15/24 Rx aspirin 81 mg tablet,delayed 81 mg PO QAM #30 tabs 05/09/24 07/15/24 Rx release clopidogrel 75 mg tablet 75 mg PO QAM #30 tabs 05/09/24 07/15/24 Rx metoprolol succinate 25 mg 25 mg PO BID #60 tabs 05/09/24 07/15/24 Rx tablet,extended release 24 hr gabapentin 100 mg capsule 200 mg (2 x 100 mg) PO TID #180 05/10/24 07/15/24 Rx caps pantoprazole 40 mg tablet,delayed 40 mg PO BID #60 tabs 05/10/24 07/15/24 Rx release atorvastatin 40 mg tablet 40 mg PO DAILY #30 tabs 07/11/24 07/15/24 Rx Patient History Medical History Mood disorder Anxiety disorder, unspecified Abnormal chest xray Elevated lactic acid level Transaminitis Pneumonia Metabolic encephalopathy Acute non-ST elevation myocardial infarction (NSTEMI) Pulmonary edema Acute hyperkalemia Acute alteration in mental status Renal failure (ARF), acute on chronic Encephalopathy Facial fracture GI bleed ESRD (end stage renal disease) on dialysis Symptomatic anemia Tobacco abuse DVT prophylaxis Fistula right arm (currently being used) and left arm Dialysis patient SATURDAY/SAT/SATURDAY AT [facility] GERD (gastroesophageal reflux disease) Bipolar disorder Restless leg syndrome Peripheral neuropathy Asthma rare res inh use History of abnormal cervical Papanicolaou smear Elevated troponin Acute electrocardiogram changes Surgical History H/O eye surgery LASER SURGERY LEFT History of surgery left arm d/t clot in arm from AV fistula use @ [facility] [place] History of surgery (~09/09/20) perm cath > since removed History of colonoscopy Kidney transplant recipient 2013 AT [facility] History of tooth extraction three TOOTH History of cardiac cath 2016 NO STENTS AVF (arteriovenous fistula) bilat upper arms ---currently using right for dialysis Family History Grandmother Hx of CABG Mother Diabetes Father Crohn's disease Grandfather (Maternal) Diabetes Uncle Diabetes Grandmother (Maternal) Family history of reaction to anesthesia difficulty waking with colonoscopy Social History Smoking Status: Former smoker Tobacco Type: Cigarettes Cigarettes Per Day: 20; Second Hand Exposure: Yes (on occasion); Do You Dip or Chew Tobacco: No; Hx Alcohol Use: No Hx Substance Use: Yes Substance Use Type Other:: THC to help with sleep Preferred Language: Welsh Communication Ability: Effective Bleach Liquor Maker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 Beliefs That Will Affect Care: None marital status: Single Current Living Situation: Family Current Living Situation Comment: grandparents How many Children do You have: 3 Feels Safe at Home: Yes Safety Concerns: Feels Safe At This Time Assistive Devices: None Review of Systems Review of Systems: Complete Review of Systems is as stated above, negative, or noncontributory. Physical Exam Physical Exam: General: A&Ox3. NAD. HENT: Normocephalic. Atraumatic. Eyes: PER. Conjunctiva pink, sclera clear. Neck: No carotid bruits. No JVD. Heart: RRR, 70 bpm. No murmur. Lungs: Clear to auscultation. Abdomen: +BS. Soft. Nontender. No masses or organomegaly. Extremities: Bilateral upper extremity fistulas. No lower extremity edema. No cyanosis. No clubbing. Limited neurological examination is without focal deficits. Pulses: Posterior tibial=1/4. Results & Data Vital Signs (Past 12 Hours) Vital Signs Temp Pulse Pulse Resp BP BP Pulse Ox 07/16/24 08:01 36.4 C L 69 18 117/67 98 07/16/24 07:11 68 07/16/24 04:06 36.3 C L 70 16 120/77 98 07/15/24 23:24 36.3 C L 81 16 140/73 99 07/15/24 22:10 83 O2 Del Method 07/16/24 08:01 Room Air 07/16/24 07:11 07/16/24 04:06 Room Air 07/15/24 23:24 Room Air 07/15/24 22:10 Laboratory Results Cardiac Enzymes 07/15/24 07/15/24 07/15/24 Range/Units 08:40 10:42 12:29 Troponin I High Sens 51.8 H* 57.4 H* 59.6 H* (0-14) pg/ml 07/15/24 07/16/24 07/16/24 Range/Units 17:52 00:42 06:11 Troponin I High Sens 60.7 H* 53.1 H* 52.3 H* (0-14) pg/ml CBC 07/16/24 Range/Units 06:11 WBC 3.73 L (4.8-10.8) K/ul RBC 2.88 L (4.20-5.40) M/uL Hgb 9.6 L (12.0-16.0) g/dl Hct 30.3 L (37.0-47.0) % Plt Count 105 L (130-400) K/uL Comprehensive Metabolic Panel 07/16/24 Range/Units 06:11 Sodium 140 (136-145) mmol/L Potassium 4.0 (3.5-5.1) mmol/L Chloride 95 L (98-107) mmol/L Carbon Dioxide 34 H (21-32) mmol/L BUN 22 (6-23) mg/dl Creatinine 5.88 H* D (0.6-1.2) mg/dl Glucose 104 H (70-99(Fasting)) mg/dl Calcium 9.1 (8.6-10.3) mg/dl Intake and Output 07/15/24 07/16/24 07/16/24 22:59 06:59 14:59 Intake Total 150 / 250 Output Total 0 / 0 Balance 150 / 250 0 / 250 Intake: Oral 150 / 150 Output: # Bowel Movements 0 / 0 Other: # Unmeasured Voids 0 Weight 77.7 kg 78.1 kg Weight Measurement Method Standing Scale Built in [facility] Diagnostic Findings Telemetry: Sinus in the 70's and 80's
--- NOTE | 2024-07-16 10:18 | Hospitalist Progress Note ---
Date of Service July 16, 2024 Assessment & Plan (1) Chest pain: (2) Elevated troponin: Plan 38 year old woman with PMHx significant for chronic systolic heart failure [EF 45%, TTE 2023], diet-controlled DM type II, ESRD on hemodialysis, history of acute thrombosis of brachiocephalic vein, HTN, cardiomegaly, obstructive CAD s/p ARIEL to RCA + LAD, valvular heart disease (mild MR/MS), GERD, restless leg syndrome, atypical chest pain, colonic polyps/diverticulosis, history of syncope and collapse, bleeding hemorrhoids, chronic anemia [baseline Hgb ~8-9], history FSGS s/p failed renal transplantation, depression with anxiety, bipolar disorder and medical noncompliance who presented to the ED via EMS for evaluation of chest pain. Atypical chest pain Chronically elevated trop but flat EKG reviewed. No new ST changes Reviewed recent TTE from earlier this month Reviewed CT chest from 6 days ago Chest pain unlikely cardiac. Maybe MSK vs anxiety related However, with her cardiac hx, will get Cards input Continue home anxiety regimen including prn ativan Monitor Continue tele ESRD on Hemodialysis: MWF Discussed with Nephro. Dr Nieves Nephro will determine about HD Diet-Controlled DM Type II: No home diabetic agents SETTER UP, SSI. BSG checks ACHS. Hgb A1c was 5.6% on 04/20/24. Continue Carb controlled renal diet. Depression, Anxiety & Bipolar Disorder: Can continue home psychiatric medications. Denied SI/HI Get psych liason involved Other Chronic Medical Conditions: Asthma/HLD/CAD -> Can continue home medications for these specific conditions. DVT Prophylaxis: SCDs/TEDs for now Code Status: FULL CODE PCP: Adolph Aldridge MD I spent a total of 50 minutes coordinating, documenting and providing care for this patient excluding time spent in performance of separately billed services Admission and Anticipated Discharge Date Admission Date: July 15, 2024 Subjective Patient seen and examined Sitting comfortably in bed writing Reports persistent sharp pain, severe, not referred to the back at this time Reported anxiety yesterday but none at this time Denied any other complaints on ROS Physical Exam Constitutional: + well hydrated; no acute distress Eyes: PERRL, conjunctivae normal, anicteric sclerae ENMT: external ear and nose normal, oropharynx normal Respiratory: normal respiratory effort, lungs clear to auscultation Cardiovascular: Rate/Rhythm: regular rate and regular rhythm Chest (Breasts): Additional Comments: No reproducible tenderness Gastrointestinal (Abdomen): normal bowel sounds, soft, nontender, no hepatosplenomegaly Neurologic: PERRL, EOMI, accommodation nl, no face palsy, no dysarthria Psychiatric: A+Ox3, euthymic affect Results & Data Results & Data Vital Signs (Past 12 Hours) Vital Signs Temp Pulse Pulse Resp BP BP Pulse Ox 07/16/24 08:01 36.4 C L 69 18 117/67 98 07/16/24 07:11 68 07/16/24 04:06 36.3 C L 70 16 120/77 98 07/15/24 23:24 36.3 C L 81 16 140/73 99 O2 Del Method 07/16/24 08:01 Room Air 07/16/24 07:11 07/16/24 04:06 Room Air 07/15/24 23:24 Room Air Laboratory Results Abnormal lab results 07/15/24 07/15/24 07/15/24 Range/Units 10:42 12:29 17:52 WBC (4.8-10.8) K/ul RBC (4.20-5.40) M/uL Hgb (12.0-16.0) g/dl Hct (37.0-47.0) % MCV (80.0-100.0) fL MCHC (32.0-36.0) g/dL RDW Std Deviation (36.4-46.3) fL RDW Coeff of Laith (11.5-14.5) % Plt Count (130-400) K/uL Chloride (98-107) mmol/L Carbon Dioxide (21-32) mmol/L Creatinine (0.6-1.2) mg/dl BUN/Creatinine Ratio (10-20) Glucose (70-99(Fasting)) mg/dl POC Glucose (70-99) mg/dl Phosphorus (2.5-4.9) mg/dl Troponin I High Sens 57.4 H* 59.6 H* 60.7 H* (0-14) pg/ml 07/15/24 07/16/24 07/16/24 Range/Units 21:00 00:42 06:11 WBC 3.73 L (4.8-10.8) K/ul RBC 2.88 L (4.20-5.40) M/uL Hgb 9.6 L (12.0-16.0) g/dl Hct 30.3 L (37.0-47.0) % MCV 105.2 H (80.0-100.0) fL MCHC 31.7 L (32.0-36.0) g/dL RDW Std Deviation 69.7 H (36.4-46.3) fL RDW Coeff of Laith 18.6 H (11.5-14.5) % Plt Count 105 L (130-400) K/uL Chloride 95 L (98-107) mmol/L Carbon Dioxide 34 H (21-32) mmol/L Creatinine 5.88 H* D (0.6-1.2) mg/dl BUN/Creatinine Ratio 3.7 L (10-20) Glucose 104 H (70-99(Fasting)) mg/dl POC Glucose 126 H (70-99) mg/dl Phosphorus 5.0 H (2.5-4.9) mg/dl Troponin I High Sens 53.1 H* 52.3 H* (0-14) pg/ml 07/16/24 Range/Units 07:56 WBC (4.8-10.8) K/ul RBC (4.20-5.40) M/uL Hgb (12.0-16.0) g/dl Hct (37.0-47.0) % MCV (80.0-100.0) fL MCHC (32.0-36.0) g/dL RDW Std Deviation (36.4-46.3) fL RDW Coeff of Laith (11.5-14.5) % Plt Count (130-400) K/uL Chloride (98-107) mmol/L Carbon Dioxide (21-32) mmol/L Creatinine (0.6-1.2) mg/dl BUN/Creatinine Ratio (10-20) Glucose (70-99(Fasting)) mg/dl POC Glucose 109 H (70-99) mg/dl Phosphorus (2.5-4.9) mg/dl Troponin I High Sens (0-14) pg/ml (1) Chest pain Chest pain type: unspecified Qualified Code(s): R07.9 - Chest pain, unspecified
[2024-07-16] MEDS ORDERED: oxyCODONE HCL IR 5 MG TAB (IMMEDIATE RELEASE) PO PRN (14:51)
[2024-07-16] MEDS: ACETAMINOPHEN 325 MG TAB PO SCH (15:35)
[2024-07-16] MEDS: MAGNESIUM HYDROXIDE SUSP 30 ML UDC PO PRN (20:31)
[2024-07-16] MEDS: POLYETHYLENE (MIRALAX) 17 GM PACK PO PRN (20:31)
--- NOTE | 2024-07-17 05:54 | Electrocardiogram Report ---
Test Reason : Blood Pressure : */* mmHG Vent. Rate : 78 BPM Atrial Rate : 78 BPM P-R Int : 168 ms QRS Dur : 112 ms QT Int : 454 ms P-R-T Axes : 32 -31 2 degrees QTcB Int : 517 ms Normal sinus rhythm Left axis deviation Possible Anterior infarct Prolonged QT Abnormal ECG When compared with ECG of 15-Jul-2024 07:32, No significant change was found Confirmed by Johny Rodriguez ([id number]) on 07/17/2024 5:54:30 AM Referred By: REFERRED SELF Confirmed By: Johny Rodriguez
[2024-07-17 10:08] LABS: Hematocrit (blood only) 28.3 % (37.0-47.0); Hemoglobin 8.9 g/dl (12.0-16.0); Mean Corpuscular Hemoglobin 32.6 pg (25.0-34.0); Mean Corpuscular Hgb Conc 31.4 g/dL (32.0-36.0); Mean Corpuscular Volume 103.7 fL (80.0-100.0); Mean Platelet Volume 10.1 fL (9.4-12.4); Platelet Count 90 K/uL (130-400); RDW Coefficient of Variation 18.5 % (11.5-14.5); RDW Standard Deviation 69.3 fL (36.4-46.3); Red Blood Count 2.73 M/uL (4.20-5.40); White Blood Count 3.62 K/ul (4.8-10.8)
[2024-07-17 10:28] LABS: BUN Creatinine Ratio 4.3 (10-20); Calcium 8.7 mg/dl (8.6-10.3); Creatinine Clr Calc Pharmacy 9.6 ml/min; Potassium 4.4 mmol/L (3.5-5.1)
--- NOTE | 2024-07-17 10:37 | Cardiology Progress Note ---
Date of Service July 17, 2024 Assessment & Plan (1) Atypical chest pain: (2) Chronic chest pain: (3) Premature coronary artery disease: (4) HTN, goal below 130/80: (5) Stented coronary artery: (6) Ischemic cardiomyopathy: (7) ESRD (end stage renal disease) on dialysis: Plan Complex 38-year-old female with end-stage renal disease admitted with anxiety/panic and atypical chest discomfort aggravated by laying on her left side. EKG without acute change. High sensitivity troponin chronically mildly elevated. Telemetry benign. No further cardiac workup recommended for the noncardiac chest pain. Volume managed via hemodialysis. Continue dual antiplatelet therapy with aspirin and clopidogrel. Continue guideline directed beta-pool therapy with metoprolol succinate. Recommend adding low-dose losartan for the ischemic cardiomyopathy (EF 40 to 44% in April 2024) unless contraindicated from a renal standpoint. Continue atorvastatin 40 mg/day. Please contact with any cardiac questions or concerns. Admission and Anticipated Discharge Date Admission Date: July 15, 2024 Supervising Physician Co-Signing Physician Notes Case discussed with Joaquina Marrufo PA-C. Agree with assessment and plan as outlined by Mr Marrufo. Patient resting comfortably during dialysis. No exam performed. Oanh Ross DO Subjective Patient seen and examined. Chart, medications, and telemetry reviewed. Notes anxiety associated with dialysis, strapping down the arm, wondering about IV Ativan prior to dialysis No angina. No palpitations. No shortness of breath. No orthopnea, PND, or peripheral edema. Telemetry: Sinus in the 60's and 70's. Review of Systems Review of Systems: Complete Review of Systems is as stated above, negative, or noncontributory. Physical Exam Physical Exam: General: A&Ox3. NAD. HENT: Normocephalic. Atraumatic. Eyes: PER. Conjunctiva pink, sclera clear. Neck: No carotid bruits. No JVD. Heart: RRR, 70 bpm. No murmur. Lungs: Clear to auscultation. Abdomen: +BS. Soft. Nontender. No masses or organomegaly. Extremities: Bilateral upper extremity fistulas. No lower extremity edema. No cyanosis. No clubbing. Limited neurological examination is without focal deficits. Pulses: Posterior tibial=1/4. Results & Data Vital Signs (Past 12 Hours) Vital Signs Temp Pulse Pulse Resp BP BP Pulse Ox 07/17/24 08:53 07/17/24 08:13 36.7 C 73 20 118/75 97 07/17/24 05:55 67 07/17/24 03:00 36.8 C 73 16 136/74 96 07/16/24 22:51 36.9 C 72 12 114/66 96 O2 Del Method 07/17/24 08:53 Room Air 07/17/24 08:13 Room Air 07/17/24 05:55 07/17/24 03:00 Room Air 07/16/24 22:51 Room Air Laboratory Results CBC 07/17/24 Range/Units 09:47 WBC 3.62 L (4.8-10.8) K/ul RBC 2.73 L (4.20-5.40) M/uL Hgb 8.9 L (12.0-16.0) g/dl Hct 28.3 L (37.0-47.0) % Plt Count 90 L (130-400) K/uL Comprehensive Metabolic Panel 07/17/24 Range/Units 09:47 Sodium 135 L (136-145) mmol/L Potassium 4.4 (3.5-5.1) mmol/L Chloride 92 L (98-107) mmol/L Carbon Dioxide 33 H (21-32) mmol/L BUN 36 H (6-23) mg/dl Creatinine 8.43 H* D (0.6-1.2) mg/dl Glucose 153 H (70-99(Fasting)) mg/dl Calcium 8.7 (8.6-10.3) mg/dl Intake and Output 07/16/24 07/17/24 07/17/24 22:59 06:59 14:59 Intake Total 300 / 420 120 / 420 Balance 300 / 420 120 / 420 Intake: Oral 300 / 420 120 / 420 Other: Weight 79.37 kg Weight Measurement Method Built in [facility]
[2024-07-17 12:18] VITALS: RESP 18; O2SAT 98
--- NOTE | 2024-07-17 12:24 | Nephrology Progress Note ---
Date of Service July 17, 2024 Assessment & Plan (1) ESRD (end stage renal disease) on dialysis: Plan: missed 2 hrs of HD 07/15 ; she was also 07/15 uncharacteristically close to her TW and appears euvolemic today on exam >> for routine HD today > orders in > 2L uf as tolerated; 4h tx; 2K/1K heparin changed d/t plt count to trial of flushes only; max dose epo; t sat earlier this month as OP 30% Care coordinated w/ Dr Garcia re chest pain therapy and plans for dialysis; we are in agreement. (2) Chest pain: Plan: non cardiac anxiety versus musculoskeletal > defer to primary service to manage > avoid nsaids >>though I do not believe this is cardiac, have been working as OP to maintain hgb >8 to avoid worsening CP d/t anemia; hgb today 8.9 Admission and Anticipated Discharge Date Admission Date: July 15, 2024 Subjective still w/ cp; asking for mm relaxant; anxiety ok; no sob, no edema Review of Systems 2 Review of Systems: All systems reviewed & are unremarkable except as noted in Subjective Physical Exam 2 Constitutional: well developed and well nourished Eyes: EOM intact bilaterally ENMT: Mouth: + dry oral mucous membranes Respiratory: normal respiratory effort Auscultation: + diminished lung sounds Cardiovascular: RRR, no murmur, no edema Extremities: + AV fistula (+t/b) Gastrointestinal (Abdomen): Inspection/Auscultation: normal bowel sounds P ercussion/Palpation: abdomen soft; abdomen nontender Musculoskeletal: Extremities: strength 5/5 throughout Skin: no rashes, warm and dry Results & Data Vital Signs (Past 12 Hours) Vital Signs Temp Pulse Pulse Resp BP BP Pulse Ox 07/17/24 12:17 37.0 C 72 18 110/68 98 07/17/24 08:53 07/17/24 08:13 36.7 C 73 20 118/75 97 07/17/24 05:55 67 07/17/24 03:00 36.8 C 73 16 136/74 96 O2 Del Method 07/17/24 12:17 Room Air 07/17/24 08:53 Room Air 07/17/24 08:13 Room Air 07/17/24 05:55 07/17/24 03:00 Room Air Laboratory Results 07/17/24 09:47 07/17/24 09:47
[2024-07-17] MEDS: LORazepam 2 MG/1 ML VIAL IV PRN (13:49)
--- NOTE | 2024-07-17 15:48 | Electrocardiogram Report ---
Test Reason : Blood Pressure : */* mmHG Vent. Rate : 71 BPM Atrial Rate : 71 BPM P-R Int : 172 ms QRS Dur : 116 ms QT Int : 492 ms P-R-T Axes : 54 -32 46 degrees QTcB Int : 534 ms Poor data quality, interpretation may be adversely affected Normal sinus rhythm Left axis deviation Left ventricular hypertrophy with QRS widening Possible Lateral infarct (cited on or before 21-Mar-2018) Poor R wave progression, consider anterior CO vs. lead placement vs. LVH Prolonged QT Abnormal ECG When compared with ECG of 16-Jul-2024 05:17, No significant change was found Confirmed by Johny Rodriguez ([id number]) on 07/17/2024 3:48:25 PM Referred By: REFERRED SELF Confirmed By: oJhny Rodriguez
[2024-07-17] MEDS: EPOETIN ALFA 20,000 UNITS/ML VIAL IV ONE (16:32)
[2024-07-17] MEDS: HEPARIN SOD (PORCINE) 1000 UNIT/ML IV ONE (16:35)
--- NOTE | 2024-07-17 17:22 | Discharge Summary ---
Date of Service July 17, 2024 Admission HPI Per Admitting Provider Alexandra Arguello is a 38y/o F with PMHx significant for chronic systolic heart failure [EF 45%, TTE 2023], diet-controlled DM type II, ESRD on hemodialysis, history of acute thrombosis of brachiocephalic vein, HTN, cardiomegaly, obstructive CAD s/p ARIEL to RCA + LAD, valvular heart disease (mild MR/MS), GERD, restless leg syndrome, atypical chest pain, colonic polyps/diverticulosis, history of syncope and collapse, migraines, chronic anemia [baseline Hgb ~8-9], history FSGS s/p failed renal transplantation, depression with anxiety, bipolar disorder and medical noncompliance who presented to the ED via EMS for ev aluation of chest pain. History obtained from the patient and associated chart review. Patient was at dialysis today when she had a panic/anxiety attack and developed 10/10 centralized chest pain that radiated around to her left back region. EMS was called to transport the patient to the ED; she received sublingual nitroglycerin x 2 and 324mg po ASA via EMS en route to the ED without any relief in her chest pain. She unfortunately did not complete her full session of dialysis today - reports she wasn't even usp finished. She endorses some lightheadedness but denies any visual changes or recent fall/trauma. No abdominal pain, nausea or vomiting. She does not have any shortness of breath with the chest pain. Patient reports that her chest pain is still 9/10. She is requesting something for pain and anxiety. Patient was recently admitted under our service on 07/10/2024 to 07/11/2024 with complaints of chest pain. Cardiac workup at that time was rather unremarkable, her home rosuvastatin was changed to atorvastatin 40mg daily per cardiology's recommendation. Admission Exam Per Admitting Provider GENERAL: Comfortable, obese, looks older than stated age, no respiratory distress SKIN: Pallor, warm HEENT: Pale palpebral conjunctivae, no ptosis, dry buccal mucosa NECK : Supple, short neck, no tenderness CHEST : Decreased breath sounds, no tenderness HEART : RRR, no obvious murmurs ABDOMEN: Some distention, nontender EXTREMITIES : Minimal LE swelling, no LE tenderness, upper extremity AV grafts, no other conspicuous deformities noted NEUROLOGIC : Coherent, no facial asymmetry, no other gross focality Principal Diagnosis Atypical chest pain Discharge Exam Constitutional + well hydrated; no acute distress Eyes PERRL, conjunctivae normal, anicteric sclerae ENMT external ear and nose normal, oropharynx normal Respiratory normal respiratory effort, lungs clear to auscultation Cardiovascular Rate/Rhythm: regular rate and regular rhythm Gastrointestinal (Abdomen) normal bowel sounds, soft, nontender, no hepatosplenomegaly Musculoskeletal No pedal edema Neurologic PERRL, EOMI, accommodation nl, no face palsy, no dysarthria Psychiatric A+Ox3, euthymic affect Discharge Data Allergies Allergy/AdvReac Type Severity Reaction Status Date / Time cefaclor Allergy Intermediate Rash Verified 06/25/24 10:45 Cephalosporins Allergy Intermediate Rash Verified 06/25/24 10:45 amoxicillin AdvReac Intermediate VOMITING Verified 06/25/24 10:45 clavulanic acid AdvReac Intermediate VOMITING Verified 06/25/24 10:45 Consultations 07/15/24 12:38 ED Decision to Admit Stat 07/15/24 14:29 Consult Nephrology Routine 07/16/24 08:27 Consult Cardiology Routine Hospital Course (1) Chest pain: (2) Elevated troponin: Plan 38 year old woman with PMHx significant for chronic systolic heart failure [EF 45%, TTE 2023], diet-controlled DM type II, ESRD on hemodialysis, history of acute thrombosis of brachiocephalic vein, HTN, cardiomegaly, obstructive CAD s/p ARIEL to RCA + LAD, valvular heart disease (mild MR/MS), GERD, restless leg syndrome, atypical chest pain, colonic polyps/diverticulosis, history of syncope and collapse, bleeding hemorrhoids, chronic anemia [baseline Hgb ~8-9], history FSGS s/p failed renal transplantation, depression with anxiety, bipolar disorder and medical noncompliance who presented to the ED via EMS for evaluation of chest pain. Atypical chest pain Chronically elevated trop but flat EKG reviewed. No new ST changes Reviewed recent TTE from earlier this month Reviewed CT chest from a week ago Chest pain unlikely cardiac. Likely musculoskeletal ESRD on Hemodialysis: Continue HD outpatient Diet-Controlled DM Type II: No home diabetic agents STAVE GRADER, Hgb A1c was 5.6% on 04/20/24. Continue Carb controlled renal diet. Depression, Anxiety & Bipolar Disorder: Continue home psychiatric medications. Total Time Total Time Spent Total Time Spent (In Minutes): 35 Total Time Includes: Examination of the Patient, Discharge Planning, Medication Reconciliation and Communication With Other Providers Discharge Plan Discharge Items Patient Disposition: Home - Self-Care Reason For Visit: CHEST PAIN, ELEVATED TROPONIN Discharge Diagnosis: Atypical chest pain Activity: Resume your previous activity Non-emergency contact: Primary Care Provider Call non-emergency contact if: you have any medication questions Follow-up/Referrals: Adolph Aldridge MD [Primary Care Provider] - (Date & Time 07/22/2024 11:00 AM Provider [facility] Kaitlyn Mg PA-C [Physician Functional Skills Tutor] - (Date & Time 08/20/2024 2:30 PM Provider Kaitlyn Mg PA-C Department Cardiology, [facility] ) Diet: Dialysis Renal and Heart Healthy Addtl Attending Provider Instructions: Ms Arguello You were managed for chest pain in the hospital You are being discharged home. Please ensure follow up with your Primary Doctor and continue your outpatient hemodialysis. It was a pleasure taking care of you Pending Studies at Discharge: No Stand-Alone Forms: My [facility] ATEME, Smoking Cessation Medications and DC Order Prescriptions: Continued albuterol sulfate 2.5 mg /3 mL (0.083 %) Solution For Nebulization 2.5 mg INHALATION Q4H PRN (Reason: Shortness Of Breath Or Wheezing) carbamazepine 200 mg tablet 200 mg PO AMPM lorazepam 0.5 mg tablet 0.5 mg PO Q8 MDD panic attacks/before dialysis PRN (Reason: Anxiety) hydroxyzine HCl 25 mg tablet 25 mg PO Q6H PRN (Reason: Anxiety) Renal-Rika 0.8 mg Tablet 1 tab PO DAILY albuterol sulfate 90 mcg/actuation Hfa Aerosol Inhaler 2 puff INHALATION Q6H PRN (Reason: Shortness Of Breath Or Wheezing) Dulera 200-5 mcg/actuation Hfa Aerosol Inhaler 2 puff INHALATION BID cinacalcet 90 mg tablet 90 mg PO QDD benzonatate 100 mg capsule 200 mg PO TID PRN (Reason: Cough) medroxyprogesterone [Depo-Provera] 150 mg/mL Suspension 150 mg IM UD Rx Instructions: Every 3 months calcium acetate(phosphat bind) 667 mg Capsule 2,001 mg PO UD Rx Instructions: take three tabs ( 2001mg) with each meal and two tabs ( 1334mg ) with each snack. varenicline 0.5 mg tablet 0.5 mg PO DAILY Qty: 30 0RF lidocaine 5 % ointment 1 applic topical QID PRN (Reason: pain) Qty: 30 3RF Rx Instructions: Apply to rectal area up to 4 times daily as needed. bupropion HCl 150 mg tablet extended release 24 hr 150 mg PO QAM mirtazapine 7.5 mg tablet 7.5 mg PO HS clopidogrel 75 mg Tablet 75 mg PO QAM Qty: 30 3RF aspirin 81 mg Tablet,Delayed Release (Dr/Ec) 81 mg PO QAM Qty: 30 0RF metoprolol succinate 25 mg Tablet Extended Release 24 Hr 25 mg PO BID Qty: 60 0RF gabapentin 100 mg capsule 200 mg PO TID Qty: 180 0RF pantoprazole 40 mg tablet,delayed release (DR/EC) 40 mg PO BID Qty: 60 0RF atorvastatin 40 mg tablet 40 mg PO DAILY Qty: 30 0RF Discharge Orders: Discharge Order (Routine); Ordered 07/17/24 Ordered By: Lindsay Garcia Admission Data Admit Date/Time: 07/15/24 13:10 Attending Provider: Lindsay Garcia I. Admit Provider: Juan Victor Primary Care Provider: Adolph Aldridge Other Providers: Leah Nieves; Juan Victor; Farooq Ross Other Interventions: Discharge Summary Assessment (RN) Last Done: 07/17/24 15:08
[2024-07-17] MEDS: HEPARIN SOD (PORCINE) 1000 UNIT/ML IV SCH (19:08)
[2024-07-17 20:11] VITALS: BP 118/60; PULSE 82; TEMP 98.4
[2024-07-17] MEDS: CYCLOBENZAPRINE HCL 5 MG TAB PO STA (20:16)
--- OUTSIDE RECORDS SUMMARY | 2024-07-18 12:24 | External Medical Summary | Summary of Care ---
Author Name Unknown Organization [facility] Address [address] [place] [address] Phone [phone] Care Team Providers Care Seismograph Operator Name Role Phone Adolph Aldridge MD Primary Care Provider [phone] Reason for Visit * Reason Onset Date Comments Appointment 07/13/2024 Cardiology Encounter Details Date Type Department Care Team (Latest Contact Info) Description 07/13/2024 Fighter Pilot Telephone Care Coordination and Integration [address] [place] [address] Kaitlyn Sandoval, ROSEY [address], [place] [id number] Appointment (Cardiology) Allergies Active Allergy Reactions Criticality Noted Date Comments Amoxicillin Low 01/27/2021 Other reaction(s): VOMITING Cefaclor Rash Low 11/23/2011 Cephalosporins Rash Low 05/16/1999 documented as of this encounter (statuses as of 07/17/2024) Medications Calcium Acetate (Phos Binder) 667 MG [...] Tablet 03/14/20 22 Active OneTouch Delica Plus [id number] ons:DM type 2 with diabetic peripheral neuropathy [...] hemoglobin A1c goal of less than 7.0% ([facility]) Use to check sugars continuously. E 11.9 change every 10 days 3 Each 01/06/20 24 Active hydrOXYzine HCl 25 MG Oral Tablet TAKE 1 TABLET BY MOUTH EVERY 6 HOURS NEEDED FOR ANXIETY 02/12/20 24 Active Dexcom G7 Mold Maintenance Technician Device USE DAILY TO CHECK BLOOD [...] as of this encounter (statuses as of 07/17/2024) Active Problems Problem Noted Date Diagnosed Date Chronic total occlusion of coronary artery 06/09 S/P primary angioplasty with coronary stent 04/27 Bleeding hemorrhoids 05/21/2024 Coronary artery disease involving galena coronar y artery 05/21/2024 HFrEF (heart failure [...] as of this encounter (statuses as of 07/17/2024) Resolved Problems Problem Noted Date Diagnosed Date [...] sugars, renal abnormalities, or HTN. 15. Recommend [facility] growth ultrasound every 4 weeks after 24 [...] 17 Overview (08/09/2011): 03/19/2011 Needs enrolled in [facility] once MA active. Marva RN- [...] as of this encounter (statuses as of 07/17/2024) Immunizations Name Administration Dates Next Due COVID-19 [...] encounter Miscellaneous Notes * Telephone Encounter - Kaitlyn Sandoval RN - 07/13/2024 10:20 AM EST Patient was recently readmitted to [facility] from 07/10/2024 to 07/11/2024 with atypical chest pain. She was recommended to have close follow up with Cardiology upon discharge. Please contact patient to schedule a Cardiology follow up appointment. Thanks, Kaitlyn Sandoval RN, BSN Float Fighter Pilot [phone] documented in this encounter Plan of Treatment Upcoming Encounters Date Type Department Care Team (Late st Contact Info) Description 08/20/2024 2:30 PM EST Office Visit Cardiology, [address] [place] [address] Kaitlyn Mg PA-C [address] [facility] [place] [address] 09/01/2024 1:40 PM EST Office Visit [address] [address] Adolph Aldridge MD [address] [place] [address] 04/01/2025 2:40 PM EDT Telemedicine Neurology [address] [place] [address] Eros Marks, DO [address] [facility] [id number] Scheduled Procedures Name Priority Associated Diagnoses Date/Ti [...] Influenza Vaccine (FLU shot) (#1) 2024 05/26/2023, 06/29/2022, 06/14/2021, Additional history exists HbA1c 12/09/2024 06/10/2024, 04/27, 08/30/2023, Additional history exists Diabetic Eye Exam 04/02/2025 04/02/2024, , 05/15/2016, Additional history exists Depression Monitoring 05/11/2025 05/11/2024 [...] this encounter Medical Devices Implanted Type Area Local Owner Operator Truck Driver Device Identifier Shelf Expiration Date Model / Serial / Lot Stent Protege Gps [id number] - [id number] Implanted:Qty : 1 on 09/29/2020 [place] Carmelo [place] [facility] [place]: Chest [employer] : VASCULAR [id number] 09/20/2022 [id number] / / [id number] Stent Viab [id number] - [id number] Implanted:Qty : 1 on 04/16/2023 by Carmelo Ramos [place] [facility] [place] Right: Subclavian [employer] [id number] 01/26/2026 [id number] / [id number] / [id number] Stent Synergy Xd Mr [id number] - [id number] Implanted:Qty : 1 on 06/09/2024 by Diamond Mcgowan MD [place] [facility] [place]gana Pty [id number] 01/21/2026 [id number] / / [id number] documented as of this encounter Advance Directives [...] Advance Directives occurred with: Patient Care Teams Seismograph Operator Relationship Specialty Start Date End Date Adolph Aldridge MD [address] [place] [address] PCP - General Family Medicine 10/21/18 documented as of this encounter
== END 2024-07-17 21:01 | disposition home or self-care (01) ==
LOC: ED 07:27 → EDINP 07:27 → SUATTDRO 13:10 → 2W 16:37

== ENCOUNTER 2024-07-30 17:07 | Inpatient (IN) ==
--- NOTE | 2024-07-30 17:13 | ED Triage Note ---
Date of Service July 30, 2024 Provider in Triage Author: Guillermo Hussein History of Present Illness This patient was briefly evaluated while in triage. An abbreviated physical exam was performed. This patient is a 38-year-old Female who presents to the ED for evaluation ESRD on dialysis, CAD s/p stenting MS-right chest pain x 1 week getting worse dizzy just here a 3 days ago for the same and discharged Physical Exam GENERAL: NAD CARDIOVASCULAR: RRR RESPIRATORY: CTA ABDOMEN: BS x 4. Nontender to palpation. Initial orders for labs and / or imaging were placed and patient was placed in the waiting area until a bed is available. Please see further documentation for the full ED course.
[2024-07-30 18:00] LABS: Basophils # (auto) 0.01 K/uL (0.00-0.20); Basophils % (auto) 0.3 %; Eosinophils # (auto) 0.09 K/uL (0.00-0.50); Hematocrit (blood only) 28.6 % (37.0-47.0); Hemoglobin 9.1 g/dl (12.0-16.0); Immature Granulocytes # (auto) 0.01 K/uL (0.01-0.20); Immature Granulocytes % (auto) 0.3 %; Lymphocytes # (auto) 0.58 K/uL (1.20-3.40); Lymphocytes % (auto) 19.3 %; Mean Corpuscular Hemoglobin 32.7 pg (25.0-34.0); Mean Corpuscular Hgb Conc 31.8 g/dL (32.0-36.0); Mean Corpuscular Volume 102.9 fL (80.0-100.0); Mean Platelet Volume 10.8 fL (9.4-12.4); Monocytes # (auto) 0.44 K/uL (0.11-0.59); Monocytes % (auto) 14.6 %; Neutrophils # (auto) 1.88 K/uL (1.40-6.50); Neutrophils % (auto) 62.5 %; Platelet Count 80 K/uL (130-400); RDW Coefficient of Variation 16.8 % (11.5-14.5); RDW Standard Deviation 64.5 fL (36.4-46.3); Red Blood Count 2.78 M/uL (4.20-5.40); White Blood Count 3.01 K/ul (4.8-10.8)
[2024-07-30 18:20] LABS: Albumin Globulin Ratio 1.5 (0.9-2); BUN Creatinine Ratio 5.2 (10-20); Bilirubin,Total 0.7 mg/dl (0.2-1.0); Calcium 10.2 mg/dl (8.6-10.3); Creatinine Clr Calc Pharmacy 9.7 ml/min; Globulin 2.6 gm/dl (2.5-4.0); Potassium 4.4 mmol/L (3.5-5.1); Total Protein 6.6 gm/dl (6.0-8.3)
[2024-07-30 18:24] LABS: Pregnancy Test, Serum Negative (Negative); Troponin I High Sensitivity 64.3 pg/ml (0-14)
--- NOTE | 2024-07-30 18:26 | XRay Report ---
EXAM: X-ray chest 1 view not portable CLINICAL HISTORY: Chest pain PRIORS: 07/27/2024, 07/26/2024 TECHNIQUE: Upright AP view chest FINDINGS: The chest is well-expanded. Moderate enlargement of the cardiac silhouette, unchanged. Scattered vascular stents noted, unchanged. Mild prominence of the central pulmonary vasculature and bronchovascular markings, mildly increased when compared to 07/26/2024. No pneumothorax. Trachea is patent. Osseous structures demonstrate no acute abnormality. No radiopaque foreign body. IMPRESSION: Radiographic features favoring volume overload with enlarged cardiac silhouette. Electronically signed by Gilma Salmeron 07-30-2024 6:25 PM
[2024-07-30 18:27] LABS: Partial Thromboplastin Ratio 0.9; Partial Thromboplastin Time 25 Seconds (21-31); Prothrombin Time 11.1 Seconds (9.0-12.0)
--- NOTE | 2024-07-30 18:57 | History & Physical Report ---
Date of Service July 30, 2024 Assessment & Plan (1) Chest pain: (2) Pancytopenia: (3) Elevated troponin: (4) ESRD on dialysis: (5) Premature coronary artery disease: Plan Chest pain - Trend troponins Continue aspirin and clopidogrel Continue metoprolol Pancytopenia Trend labs Will hold heparin or Lovenox due to thrombocytopenia. Her platelet count is lower at 80k compared to the last value Elevated troponin -Patient has chronically elevated troponins presumably from her end-stage renal disease. Will trend ESRD on HD -Consult nephrology CAD -Patient recently [place] cardiac [place] [facility] [place] which showed hemodynamically significant coronary artery disease. Mid LAD with 100% chronic total occlusion with bridging collaterals. 60 to 70% first obtuse marginal stenosis. Widely patent distal RCA stent. 70% ostial stenosis of the RPDA with AIDA III flow. Status post PCI of the LAD occlusion with a 2.75 x 38 mm Synergy drug-eluting stent with excellent angiographic result -Consult cardiology VTE prophylaxis: Will utilize SCDs due to her pancytopenia Patient is a full code Total time spent in the care and care coordination of this patient was 65 minutes History of Present Illness Chief Complaint: Chest pain Primary Care Provider: Adolph Aldridge MD Gabby Arguello is a 38-year-old female with a significant medical history including chronic systolic heart failure [EF 45%, TTE 2023], diet-controlled DM type II, ESRD on hemodialysis, history of acute thrombosis of brachiocephalic vein, HTN, cardiomegaly, obstructive CAD s/p ARIEL to RCA + LAD, valvular heart disease (mild MR/MS), [place] [place] Mcgowan showed hemodynamically significant coronary artery disease. Mid LAD with 100% chronic total occlusion with bridging collaterals. 60 to 70% first obtuse marginal stenosis. Widely patent distal RCA stent. 70% ostial stenosis of the RPDA with AIDA III flow. Status post PCI of the LAD occlusion with a 2.75 x 38 mm Synergy drug-eluting stent with excellent angiographic result), GERD, restless leg syndrome, atypical chest pain, colonic polyps/diverticulosis, history of syncope and collapse, migraines, chronic anemia [baseline Hgb ~8-9], history FSGS s/p failed renal transplantation, depression with anxiety, bipolar disorder and medical noncompliance who presented to the emergency department via EMS for ev aluation of chest pain this evening. Patient is well-known to this ER and institution due to frequency of visits. She had several visits last week after missing dialysis. Her last visit was about 12 hours ago where her workup was essentially chronic for her, and she was instructed to keep her dialysis appointment this morning. Patient got up for dialysis felt like she was lightheaded and elected to come to the ER rather than go to dialysis. She rated her pain a 9/10. She did take Tylenol before coming to the ER without relief of symptoms. No fevers or chills. Pain started this morning at rest. Last dialysis session was yesterday. Troponin is 64.3. She has chronically elevated troponins. EKG shows no acute changes or change from prior EKG Allergies Allergy/AdvReac Type Severity Reaction Status Date / Time cefaclor Allergy Intermediate Rash Verified 07/24/24 09:26 Cephalosporins Allergy Intermediate Rash Verified 07/24/24 09:26 amoxicillin AdvReac Intermediate VOMITING Verified 07/24/24 09:26 clavulanic acid AdvReac Intermediate VOMITING Verified 07/24/24 09:26 Home Medications Medication Instructions Recorded Confirmed Type carbamazepine 200 mg tablet 200 mg PO AMPM 06/08/23 07/30/24 History hydroxyzine HCl 25 mg tablet 25 mg PO Q6H PRN Anxiety 06/08/23 07/30/24 History lorazepam 0.5 mg tablet 0.5 mg PO Q8H PRN Anxiety 06/08/23 07/30/24 History vitamin B complex-vitamin C-folic 1 tab PO DAILY 06/08/23 07/30/24 History acid 0.8 mg tablet (Renal-Rika) benzonatate 100 mg capsule 200 mg PO TID PRN Cough 08/29/23 07/30/24 History calcium acetate(phosphat bind) 667 2,001 mg PO UD 08/29/23 07/30/24 History mg capsule medroxyprogesterone 150 mg/mL 150 mg IM UD 08/29/23 07/30/24 History intramuscular suspension (Depo-Provera) lidocaine 5 % topical ointment 1 applic topical QID PRN pain #30 04/11/24 07/30/24 Rx grams bupropion HCl 150 mg 24 hr tablet, 150 mg PO QAM 04/17/24 07/30/24 History extended release mirtazapine 7.5 mg tablet 7.5 mg PO HS 04/17/24 07/30/24 History aspirin 81 mg tablet,delayed 81 mg PO QAM #30 tabs 05/09/24 07/30/24 Rx release clopidogrel 75 mg tablet 75 mg PO QAM #30 tabs 05/09/24 07/30/24 Rx amlodipine 2.5 mg tablet 2.5 mg PO DAILY 07/24/24 07/30/24 History atorvastatin 40 mg tablet 40 mg PO QPM 07/24/24 07/30/24 History metoprolol succinate 50 mg 50 mg PO BID 07/24/24 07/30/24 History tablet,extended release 24 hr varenicline 1 mg tablet 1 mg PO BID 07/24/24 07/30/24 History Past Med/Surg History Problem List (Updated 07/30/24 @ 19:46 by Harsh Stapleton MD) Chest pain (Acute) Atypical chest pain (Acute) Pancytopenia (Acute) Elevated troponin (Acute) ESRD (end stage renal disease) on dialysis (Acute) Chest pain (Acute) Shortness of breath (Acute) Chest pain (Acute) ESRD on dialysis (Acute) Chest pain (Acute) Chronic chest pain Chest pain (Acute) HTN, goal below 130/80 Dyslipidemia, goal LDL below 70 Stented coronary artery Premature coronary artery disease Chest pain at rest Chest pain (Acute) Rhinovirus infection Abnormal laboratory test (Acute) Coronary artery disease due to calcified coronary lesion Dialysis complication (Acute) Syncope (Acute) Acute hyperkalemia (Acute) Symptomatic anemia (Acute) Episode of syncope Rectal bleeding Chest pain (Acute) ESRD on dialysis (Acute) Acute hyperkalemia (Acute) Elevated troponin (Acute) Chest pain not due to acute coronary syndrome (Acute) Bleeding external hemorrhoids (Acute) Non-compliance (Acute) Fluid overload (Acute) Uremia (Acute) Anemia (Acute) Depression (Acute) Weakness (Acute) Sleep deprivation (Acute) Hallucinations (Acute) Anemia (Acute) Dialysis patient (Acute) Medical non-compliance (Acute) Acute uremia (Acute) Shortness of breath (Acute) Elevated troponin (Acute) Acute hyperkalemia (Acute) SOB (shortness of breath) (Acute) SOB (shortness of breath) (Acute) Acute uremia (Acute) Somnolence (Acute) Medical non-compliance (Acute) Elevated troponin (Acute) Dialysis patient (Acute) Renal failure (Acute) Hyperkalemia (Acute) Thrombocytopenia COVID-19 (Acute) Renal osteodystrophy Anemia in ESRD (end-stage renal disease) ESRD (end stage renal disease) on dialysis (Acute) Anxiety Depression Major depressive disorder, recurrent, in partial remission Anemia of chronic disease Status post fall last fallNovember 2022 > nasal fx / knee pain, no surgery for either injury > resolved per pt report Prolonged QT interval (Acute) no cardio HTN (hypertension) (Acute) Anemia due to end stage renal disease (Acute) FSGS (focal segmental glomerulosclerosis) (Chronic) DX INITIALLY 2012 (CAUSING ESRD 2012) Medical History Ischemic cardiomyopathy Status post insertion of drug-eluting stent into left anterior descending (LAD) artery Coronary artery disease ESRD (end stage renal disease) on dialysis Substernal chest pain Atypical chest pain Anemia Atypical chest pain CHF (congestive heart failure) Depression with anxiety DM2 (diabetes mellitus, type 2) Mood disorder Anxiety disorder, unspecified Abnormal chest xray Elevated lactic acid level Transaminitis Pneumonia Metabolic encephalopathy Acute non-ST elevation myocardial infarction (NSTEMI) Pulmonary edema Acute hyperkalemia Acute alteration in mental status Renal failure (ARF), acute on chronic Encephalopathy Facial fracture GI bleed ESRD (end stage renal disease) on dialysis Symptomatic anemia Tobacco abuse DVT prophylaxis Fistula right arm (currently being used) and left arm Dialysis patient SATURDAY/SAT/SATURDAY AT [facility] GERD (gastroesophageal reflux disease) Bipolar disorder Restless leg syndrome Peripheral neuropathy Asthma rare res inh use History of abnormal cervical Papanicolaou smear Elevated troponin Acute electrocardiogram changes Surgical History S/P right coronary artery (RCA) stent placement History of heart artery stent H/O eye surgery LASER SURGERY LEFT History of surgery left arm d/t clot in arm from AV fistula use @ [facility] History of surgery (~09/09/20) perm cath > since removed History of colonoscopy Kidney transplant recipient 2013 AT [facility] History of tooth extraction three TOOTH History of cardiac cath 2016 NO STENTS AVF (arteriovenous fistula) bilat upper arms ---currently using right for dialysis Family History Grandmother Hx of CABG Mother Diabetes Father Crohn's disease Grandfather (Maternal) Diabetes Uncle Diabetes Grandmother (Maternal) Family history of reaction to anesthesia difficulty waking with colonoscopy Social History Smoking Status: Never smoker Tobacco Type: Cigarettes Cigarettes Per Day: 20; Second Hand Exposure: Yes (on occasion); Do You Dip or Chew Tobacco: No; Hx Alcohol Use: No Hx Substance Use: Yes Substance Use Type Other:: THC to help with sleep Preferred Language: Irish Communication Ability: Effective Yard Hand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 Beliefs That Will Affect Care: None marital status: Single Current Living Situation: Family Current Living Situation Comment: grandparents How many Children do You have: 3 Feels Safe at Home: Yes Assistive Devices: None Review of Systems Review of Systems: Constitutional- no fever; no weight loss Eyes- no acute visual changes ENT- no sinus drainage; no pharyngitis Pulmonary- no cough, no wheezing, no shortness of breath Cardiac-has precordial chest pain, no radiation, no associated diaphoresis or nausea, no palpitations, no orthopnea, no dependent edema GI- no nausea, no vomiting, no diarrhea, no melena, no hematochezia - no dysuria, no hematuria Musculoskeletal- no arthralgias, no myalgias Derm- no rashes, no new skin lesions, no changing skin lesions Hematologic- no unusual bruising, no unusual bleeding Lymphatics- no adenopathy Endocrine- no polyuria or polydipsia; no heat or cold intolerance Neuro- no headaches, no focal neurologic symptoms Psych- no anxiety, no depression Physical Exam Physical Exam: General- adult female seen at bedside in the ED. Head- atraumatic Eyes- PERRL, EOMI, anicteric ENT- oropharynx clear Neck- supple, no JVD, no adenopathy, no thyromegaly; carotids +2/2, no bruits appreciated Lungs- clear to auscultation and percussion Heart- regular rhythm; no murmur, no gallop, no rub appreciated Abdomen- normal bowel sounds, soft, nontender, no masses or hepatosplenomegaly Extremities- no pretibial edema, no calf tenderness; dialysis fistula intact Neuro- alert, oriented x 3; PERRL, EOMI; no facial palsy; no dysarthria; motor 5/5 bilaterally; Musculoskeletal: No reproducible chest pain Skin- warm & dry Results & Data Results & Data Vital Signs (Past 12 Hours) Vital Signs Temp Pulse Pulse Resp BP BP Pulse Ox 07/30/24 18:43 89 18 145/82 H 95 07/30/24 18:22 88 07/30/24 18:17 96 07/30/24 18:16 88 16 141/87 H 100 07/30/24 17:11 36.2 C L 95 H 20 127/60 94 O2 Del Method 07/30/24 18:43 Room Air 07/30/24 18:22 07/30/24 18:17 Room Air 07/30/24 18:16 Room Air 07/30/24 17:11 Room Air Diagnostic Findings Laboratory Results WBC 3.01 K/ul (4.8-10.8) L 07/30/24 17:25 RBC 2.78 M/uL (4.20-5.40) L 07/30/24 17:25 Hgb 9.1 g/dl (12.0-16.0) L 07/30/24 17:25 Hct 28.6 % (37.0-47.0) L 07/30/24 17:25 MCV 102.9 fL (80.0-100.0) H 07/30/24 17:25 MCH 32.7 pg (25.0-34.0) 07/30/24 17:25 MCHC 31.8 g/dL (32.0-36.0) L 07/30/24 17:25 RDW Std Deviation 64.5 fL (36.4-46.3) H 07/30/24 17:25 RDW Coeff of Laith 16.8 % (11.5-14.5) H 07/30/24 17:25 Plt Count 80 K/uL (130-400) L 07/30/24 17:25 MPV 10.8 fL (9.4-12.4) 07/30/24 17:25 Immature Gran % (Auto) 0.3 % 07/30/24 17:25 Neut % (Auto) 62.5 % 07/30/24 17:25 Lymph % (Auto) 19.3 % 07/30/24 17:25 [place] % (Auto) 14.6 % 07/30/24 17:25 Eos % (Auto) 3.0 % 07/30/24 17:25 Baso % (Auto) 0.3 % 07/30/24 17:25 Neut # (Auto) 1.88 K/uL (1.40-6.50) 07/30/24 17:25 Lymph # (Auto) 0.58 K/uL (1.20-3.40) L 07/30/24 17:25 [place] # (Auto) 0.44 K/uL (0.11-0.59) 07/30/24 17:25 Eos # (Auto) 0.09 K/uL (0.00-0.50) 07/30/24 17:25 Baso # (Auto) 0.01 K/uL (0.00-0.20) 07/30/24 17:25 Immature Gran # (Auto) 0.01 K/uL (0.01-0.20) 07/30/24 17:25 PT 11.1 Seconds (9.0-12.0) 07/30/24 17:25 INR 1.0 (0.9-1.1) 07/30/24 17:25 APTT 25 Seconds (21-31) 07/30/24 17:25 PTT Ratio 0.9 07/30/24 17:25 Sodium 140 mmol/L (136-145) 07/30/24 17:25 Potassium 4.4 mmol/L (3.5-5.1) 07/30/24 17:25 Chloride 91 mmol/L (98-107) L 07/30/24 17:25 Carbon Dioxide 34 mmol/L (21-32) H 07/30/24 17:25 Anion Gap 15 (3-11) H 07/30/24 17:25 BUN 43 mg/dl (6-23) H 07/30/24 17:25 Creatinine 8.27 mg/dl (0.6-1.2) H* 07/30/24 17:25 Est Cr Clr Drug Dosing 9.7 ml/min 07/30/24 17:25 eGFR 5.86 07/30/24 17:25 BUN/Creatinine Ratio 5.2 (10-20) L 07/30/24 17:25 Glucose 106 mg/dl (70-99(Fasting)) H 07/30/24 17:25 Calcium 10.2 mg/dl (8.6-10.3) 07/30/24 17:25 Total Bilirubin 0.7 mg/dl (0.2-1.0) 07/30/24 17:25 AST 21 U/L (13-39) 07/30/24 17:25 ALT 13 U/L (7-52) 07/30/24 17:25 Alkaline Phosphatase 114 U/L (34-104) H 07/30/24 17:25 Troponin I High Sens 64.3 pg/ml (0-14) H* 07/30/24 17:25 Total Protein 6.6 gm/dl (6.0-8.3) 07/30/24 17:25 Albumin 4.0 gm/dl (3.4-5.0) 07/30/24 17:25 Globulin 2.6 gm/dl (2.5-4.0) 07/30/24 17:25 Albumin/Globulin Ratio 1.5 (0.9-2) 07/30/24 17:25 Lipase 11 U/L (11-82) 07/30/24 17:25 HCG, Qual Negative (Negative) 07/30/24 17:25 Impressions Chest X-Ray 07/30/24 17:13 EXAM: X-ray chest 1 view not portable CLINICAL HISTORY: Chest pain PRIORS: 07/27/2024, 07/26/2024 TECHNIQUE: Upright AP view chest FINDINGS: The chest is well-expanded. Moderate enlargement of the cardiac silhouette, unchanged. Scattered vascular stents noted, unchanged. Mild prominence of the central pulmonary vasculature and bronchovascular markings, mildly increased when compared to 07/26/2024. No pneumothorax. Trachea is patent. Osseous structures demonstrate no acute abnormality. No radiopaque foreign body. IMPRESSION: Radiographic features favoring volume overload with enlarged cardiac silhouette. Electronically signed by Gilma Salmeron 07-30-2024 6:25 PM (1) Chest pain Chest pain type: unspecified Qualified Code(s): R07.9 - Chest pain, unspecified
[2024-07-30] MEDS: ACETAMINOPHEN 325 MG TAB PO STA (19:10)
--- NOTE | 2024-07-30 19:38 | Emergency Department Note ---
History of Present Illness General Chief Complaint: Chest Pain Stated Complaint: CHEST PAIN Time Seen by Provider: 07/30/24 18:16 History of Present Illness Provider Complaint: chest pain Onset (ago): week(s) Onset (Weeks): 1 Duration: intermittent Onset: during rest Pain Location: substernal Severity: moderate Relieved By: + nothing Exacerbated By: + nothing Associated symptoms: no dyspnea or no palpitations Patient states she got a full dose of dialysis today. Home Medications Medication Instructions Recorded Confirmed Type carbamazepine 200 mg tablet 200 mg PO AMPM 06/08/23 07/30/24 History hydroxyzine HCl 25 mg tablet 25 mg PO Q6H PRN Anxiety 06/08/23 07/30/24 History lorazepam 0.5 mg tablet 0.5 mg PO Q8H PRN Anxiety 06/08/23 07/30/24 History vitamin B complex-vitamin C-folic 1 tab PO DAILY 06/08/23 07/30/24 History acid 0.8 mg tablet (Renal-Rika) benzonatate 100 mg capsule 200 mg PO TID PRN Cough 08/29/23 07/30/24 History calcium acetate(phosphat bind) 667 2,001 mg PO UD 08/29/23 07/30/24 History mg capsule medroxyprogesterone 150 mg/mL 150 mg IM UD 08/29/23 07/30/24 History intramuscular suspension (Depo-Provera) lidocaine 5 % topical ointment 1 applic topical QID PRN pain #30 04/11/24 07/30/24 Rx grams bupropion HCl 150 mg 24 hr tablet, 150 mg PO QAM 04/17/24 07/30/24 History extended release mirtazapine 7.5 mg tablet 7.5 mg PO HS 04/17/24 07/30/24 History aspirin 81 mg tablet,delayed 81 mg PO QAM #30 tabs 05/09/24 07/30/24 Rx release clopidogrel 75 mg tablet 75 mg PO QAM #30 tabs 05/09/24 07/30/24 Rx amlodipine 2.5 mg tablet 2.5 mg PO DAILY 07/24/24 07/30/24 History atorvastatin 40 mg tablet 40 mg PO QPM 07/24/24 07/30/24 History metoprolol succinate 50 mg 50 mg PO BID 11/29/24 12/05/24 History tablet,extended release 24 hr varenicline 1 mg tablet 1 mg PO BID 07/24/24 07/30/24 History Allergies Allergy/AdvReac Type Severity Reaction Status Date / Time cefaclor Allergy Intermediate Rash Verified 07/24/24 09:26 Cephalosporins Allergy Intermediate Rash Verified 07/24/24 09:26 amoxicillin AdvReac Intermediate VOMITING Verified 07/24/24 09:26 clavulanic acid AdvReac Intermediate VOMITING Verified 07/24/24 09:26 Past Med/Surg History Problem List (Updated 07/30/24 @ 19:46 by Harsh Stapleton MD) Chest pain (Acute) Atypical chest pain (Acute) Pancytopenia (Acute) Elevated troponin (Acute) ESRD (end stage renal disease) on dialysis (Acute) Chest pain (Acute) Shortness of breath (Acute) Chest pain (Acute) ESRD on dialysis (Acute) Chest pain (Acute) Chronic chest pain Chest pain (Acute) HTN, goal below 130/80 Dyslipidemia, goal LDL below 70 Stented coronary artery Premature coronary artery disease Chest pain at rest Chest pain (Acute) Rhinovirus infection Abnormal laboratory test (Acute) Coronary artery disease due to calcified coronary lesion Dialysis complication (Acute) Syncope (Acute) Acute hyperkalemia (Acute) Symptomatic anemia (Acute) Episode of syncope Rectal bleeding Chest pain (Acute) ESRD on dialysis (Acute) Acute hyperkalemia (Acute) Elevated troponin (Acute) Chest pain not due to acute coronary syndrome (Acute) Bleeding external hemorrhoids (Acute) Non-compliance (Acute) Fluid overload (Acute) Uremia (Acute) Anemia (Acute) Depression (Acute) Weakness (Acute) Sleep deprivation (Acute) Hallucinations (Acute) Anemia (Acute) Dialysis patient (Acute) Medical non-compliance (Acute) Acute uremia (Acute) Shortness of breath (Acute) Elevated troponin (Acute) Acute hyperkalemia (Acute) SOB (shortness of breath) (Acute) SOB (shortness of breath) (Acute) Acute uremia (Acute) Somnolence (Acute) Medical non-compliance (Acute) Elevated troponin (Acute) Dialysis patient (Acute) Renal failure (Acute) Hyperkalemia (Acute) Thrombocytopenia COVID-19 (Acute) Renal osteodystrophy Anemia in ESRD (end-stage renal disease) ESRD (end stage renal disease) on dialysis (Acute) Anxiety Depression Major depressive disorder, recurrent, in partial remission Anemia of chronic disease Status post fall last fallNovember 2022 > nasal fx / knee pain, no surgery for either injury > resolved per pt report Prolonged QT interval (Acute) no cardio HTN (hypertension) (Acute) Anemia due to end stage renal disease (Acute) FSGS (focal segmental glomerulosclerosis) (Chronic) DX INITIALLY 2013 (CAUSING ESRD 2012) Medical History Ischemic cardiomyopathy Status post insertion of drug-eluting stent into left anterior descending (LAD) artery Coronary artery disease ESRD (end stage renal disease) on dialysis Substernal chest pain Atypical chest pain Anemia Atypical chest pain CHF (congestive heart failure) Depression with anxiety DM2 (diabetes mellitus, type 2) Mood disorder Anxiety disorder, unspecified Abnormal chest xray Elevated lactic acid level Transaminitis Pneumonia Metabolic encephalopathy Acute non-ST elevation myocardial infarction (NSTEMI) Pulmonary edema Acute hyperkalemia Acute alteration in mental status Renal failure (ARF), acute on chronic Encephalopathy Facial fracture GI bleed ESRD (end stage renal disease) on dialysis Symptomatic anemia Tobacco abuse DVT prophylaxis Fistula right arm (currently being used) and left arm Dialysis patient SATURDAY/SAT/SATURDAY AT [facility] GERD (gastroesophageal reflux disease) Bipolar disorder Restless leg syndrome Peripheral neuropathy Asthma rare res inh use History of abnormal cervical Papanicolaou smear Elevated troponin Acute electrocardiogram changes Surgical History S/P right coronary artery (RCA) stent placement History of heart artery stent H/O eye surgery LASER SURGERY LEFT History of surgery left arm d/t clot in arm from AV fistula use @ [facility] History of surgery (~09/09/20) perm cath > since removed History of colonoscopy Kidney transplant recipient 2013 AT [facility] History of tooth extraction three TOOTH History of cardiac cath 2017 NO STENTS AVF (arteriovenous fistula) bilat upper arms ---currently using right for dialysis Family History Grandmother Hx of CABG Mother Diabetes Father Crohn's disease Grandfather (Maternal) Diabetes Uncle Diabetes Grandmother (Maternal) Family history of reaction to anesthesia difficulty waking with colonoscopy Social History Smoking Status: Never smoker Tobacco Type: Cigarettes Cigarettes Per Day: 20; Second Hand Exposure: Yes (on occasion); Do You Dip or Chew Tobacco: No; Hx Alcohol Use: No Hx Substance Use: Yes Substance Use Type Other:: THC to help with sleep Preferred Language: Turkish Communication Ability: Effective Field Spec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 Beliefs That Will Affect Care: None marital status: Single Current Living Situation: Family Current Living Situation Comment: grandparents How many Children do You have: 3 Feels Safe at Home: Yes Assistive Devices: None Physical Exam Vital Signs Vital Signs - 24 hr 07/30/24 17:11 07/30/24 18:16 07/30/24 18:17 Temperature 36.2 C L Temperature Source Temporal Artery Scan Pulse Rate 95 H Pulse Rate [Apical] 88 Pulse Rhythm Regular Pulse Rhythm [Apical] Pulse Strength Normal Pulse Strength [Apical] Respiratory Rate 20 16 Respiratory Effort / Characteristics Non-Labored Spontaneous Non-Labored Respiratory Depth Normal Normal Respiratory Pattern Regular Regular Blood Pressure 127/60 Blood Pressure [Left Arm] 141/87 H Blood Pressure Mean 82 Blood Pressure Mean [Left Arm] 105 Blood Pressure Position [Left Arm] Pulse Oximetry 94 100 96 Oxygen Delivery Method Room Air Room Air Room Air Sepsis Recent Fever Within 48 Hours No Sepsis New/Unexplained Change in Mental Status No Sepsis Action Taken by Nursing No Action Required 07/30/24 18:22 07/30/24 18:43 Temperature Temperature Source Pulse Rate 88 Pulse Rate [Apical] 89 Pulse Rhythm Pulse Rhythm [Apical] Regular Pulse Strength Pulse Strength [Apical] Normal Respiratory Rate 18 Respiratory Effort / Characteristics Non-Labored Spontaneous Respiratory Depth Normal Respiratory Pattern Blood Pressure Blood Pressure [Left Arm] 145/82 H Blood Pressure Mean Blood Pressure Mean [Left Arm] 103 Blood Pressure Position [Left Arm] Lying Pulse Oximetry 95 Oxygen Delivery Method Room Air Sepsis Recent Fever Within 48 Hours Sepsis New/Unexplained Change in Mental Status Sepsis Action Taken by Nursing Physical Exam GENERAL: oriented to person, place, and time. appears well-developed and well- nourished. HENT: Exam performed. - Head: Normocephalic and atraumatic. EYES: Conjunctivae and EOM are normal. Right eye exhibits no discharge. Left eye exhibits no discharge. No scleral icterus. NECK: Normal range of motion. Neck supple. No JVD present. CV: Normal rate, regular rhythm, normal heart sounds and intact distal pulses. There is no peripheral edema. Palpable radial pulses bue. PULM/CHEST: Effort normal and breath sounds normal. No respiratory distress. No stridor. no wheezes. no rales. NEURO: Motor and sensation grossly intact. Course Course 1815: The patient was evaluated in room C10. A complete history and physical exam was performed Administered Medications Discontinued Medications Acetaminophen (Acetaminophen 325 Mg Tab) 650 mg PO NOW STA Stop: 07/30/24 18:59 Last Admin: 07/30/24 19:10 Dose: Not Given Documented By: EVAN Medical Decision Making Medical Records Attestation: I reviewed the patient's medical records. Medical records narrative: External medical records reviewed. Patient had a negative CTA of the chest 3 weeks ago. Laboratory Data Attestation: I reviewed the patient's lab results. 07/30/24 17:25 07/30/24 17:25 Labs: Lab Results 07/30/24 Range/Units 17:25 WBC 3.01 L (4.8-10.8) K/ul RBC 2.78 L (4.20-5.40) M/uL Hgb 9.1 L (12.0-16.0) g/dl Hct 28.6 L (37.0-47.0) % MCV 102.9 H (80.0-100.0) fL MCH 32.7 (25.0-34.0) pg MCHC 31.8 L (32.0-36.0) g/dL RDW Std Deviation 64.5 H (36.4-46.3) fL RDW Coeff of Laith 16.8 H (11.5-14.5) % Plt Count 80 L (130-400) K/uL MPV 10.8 (9.4-12.4) fL Immature Gran % (Auto) 0.3 % Neut % (Auto) 62.5 % Lymph % (Auto) 19.3 % Randall % (Auto) 14.6 % Eos % (Auto) 3.0 % Baso % (Auto) 0.3 % Neut # (Auto) 1.88 (1.40-6.50) K/uL Lymph # (Auto) 0.58 L (1.20-3.40) K/uL Randall # (Auto) 0.44 (0.11-0.59) K/uL Eos # (Auto) 0.09 (0.00-0.50) K/uL Baso # (Auto) 0.01 (0.00-0.20) K/uL Immature Gran # (Auto) 0.01 (0.01-0.20) K/uL PT 11.1 (9.0-12.0) Seconds INR 1.0 (0.9-1.1) APTT 25 (21-31) Seconds PTT Ratio 0.9 Sodium 140 (136-145) mmol/L Potassium 4.4 (3.5-5.1) mmol/L Chloride 91 L (98-107) mmol/L Carbon Dioxide 34 H (21-32) mmol/L Anion Gap 15 H (3-11) BUN 43 H (6-23) mg/dl Creatinine 8.27 H* (0.6-1.2) mg/dl Est Cr Clr Drug Dosing 9.7 ml/min eGFR 5.86 BUN/Creatinine Ratio 5.2 L (10-20) Glucose 106 H (70-99(Fasting)) mg/dl Calcium 10.2 (8.6-10.3) mg/dl Total Bilirubin 0.7 (0.2-1.0) mg/dl AST 21 (13-39) U/L ALT 13 (7-52) U/L Alkaline Phosphatase 114 H (34-104) U/L Troponin I High Sens 64.3 H* (0-14) pg/ml Total Protein 6.6 (6.0-8.3) gm/dl Albumin 4.0 (3.4-5.0) gm/dl Globulin 2.6 (2.5-4.0) gm/dl Albumin/Globulin Ratio 1.5 (0.9-2) Lipase 11 (11-82) U/L HCG, Qual Negative (Negative) Imaging Data Chest x-ray: Attestation: I personally reviewed and interpreted this imaging study as follows: My impression: Chest x-ray: Unchanged from July 27, 2024 [facility] Narrative Cardiac monitoring: An order was placed for continuous cardiac monitoring. The monitor shows a rate of 90 with sinus rhythm interpreted by me Patient was seen during a time of extreme volume and extreme acuity. Nursing triage protocols were initiated labs and imaging was conducted by protocol in the triage area. Labs show chronically elevated troponin. Potassium BUN are stable. This is the patient's fifth visit to the emergency department for chest pain in the last 7 days. Patient will be admitted to the [facility] hospitalist team. Impression & Plan Chest pain Discharge Plan Visit Data Chief Complaint: Chest Pain Stated Complaint: CHEST PAIN ED Provider: Harsh Stapleton Discharge Problem: Chest pain Patient Disposition: Being Evaluated by Hospitalist Forms Stand Alone Forms: [facility] Prescriptions Prescriptions: No Action carbamazepine 200 mg tablet 200 mg PO AMPM lorazepam 0.5 mg tablet 0.5 mg PO Q8H MDD panic attacks/before dialysis PRN (Reason: Anxiety) hydroxyzine HCl 25 mg tablet 25 mg PO Q6H PRN (Reason: Anxiety) Renal-Rika 0.8 mg Tablet 1 tab PO DAILY benzonatate 100 mg capsule 200 mg PO TID PRN (Reason: Cough) medroxyprogesterone [Depo-Provera] 150 mg/mL Suspension 150 mg IM UD Rx Instructions: Every 3 months calcium acetate(phosphat bind) 667 mg Capsule 2,001 mg PO UD Rx Instructions: take three tabs ( 2001mg) with each meal and none with snack. metoprolol succinate 50 mg tablet extended release 24 hr 50 mg PO BID amlodipine 2.5 mg tablet 2.5 mg PO DAILY varenicline 1 mg tablet 1 mg PO BID atorvastatin 40 mg tablet 40 mg PO QPM lidocaine 5 % ointment 1 applic topical QID PRN (Reason: pain) Qty: 30 3RF Rx Instructions: Apply to rectal area up to 4 times daily as needed. bupropion HCl 150 mg tablet extended release 24 hr 150 mg PO QAM mirtazapine 7.5 mg tablet 7.5 mg PO HS clopidogrel 75 mg Tablet 75 mg PO QAM Qty: 30 3RF aspirin 81 mg Tablet,Delayed Release (Dr/Ec) 81 mg PO QAM Qty: 30 0RF Referrals Referrals: Adolph Aldridge MD [Primary Care Provider] - Discharge Problem: Chest pain Qualifiers: Chest pain type: unspecified Qualified Code(s): R07.9 - Chest pain, unspecified
[2024-07-30] MEDS ORDERED: ALBUT/IPRATROP 3MG/0.5MG NEB 3 ML VIAL NEB PRN (20:03)
[2024-07-30] MEDS ORDERED: LIDOCAINE 5% OINT 30 GM TUBE TOP PRN (21:47)
[2024-07-30] MEDS ORDERED: MAGNESIUM HYDROXIDE SUSP 30 ML UDC PO PRN (21:47)
[2024-07-30] MEDS ORDERED: LORazepam 0.5 MG TAB PO PRN (21:47)
[2024-07-30] MEDS ORDERED: ZOLPIDEM TARTRATE 5 MG TAB PO PRN (21:47)
[2024-07-30] MEDS ORDERED: BENZONATATE 100 MG CAPSULE PO PRN (21:47)
[2024-07-30] MEDS ORDERED: ONDANSETRON INJ 2 MG/ML 2 ML VIAL IV PRN (21:47)
[2024-07-30] MEDS ORDERED: POLYETHYLENE (MIRALAX) 17 GM PACK PO PRN (21:47)
[2024-07-30] MEDS: NITROGLYCERIN SL 0.4 MG/TAB TAB SL PRN (22:39)
[2024-07-30] MEDS: hydrOXYzine HCl 25 MG TAB PO PRN (22:45)
[2024-07-30] MEDS: ATORVASTATIN 40 MG TAB PO SCH (22:45)
[2024-07-30] MEDS: carBAMazepine 200 MG TABLET PO SCH (22:45)
[2024-07-30] MEDS: METOPROLOL SUCC 50MG EXT REL TAB PO SCH (22:45)
[2024-07-30] MEDS: MIRTAZAPINE TAB 15 MG TAB PO SCH (22:46)
[2024-07-30] MEDS: MoRPHine SULFATE 2 MG/ML CARP IV PRN (22:53)
[2024-07-31] MEDS: MoRPHine SULFATE 4 MG/ML 1 ML CARP\\VIAL IV STA (02:42)
[2024-07-31 04:42] LABS: Hematocrit (blood only) 27.3 % (37.0-47.0); Hemoglobin 8.7 g/dl (12.0-16.0); Mean Corpuscular Hemoglobin 32.8 pg (25.0-34.0); Mean Corpuscular Hgb Conc 31.9 g/dL (32.0-36.0); Mean Platelet Volume 9.6 fL (9.4-12.4); Platelet Count 72 K/uL (130-400); RDW Coefficient of Variation 17.1 % (11.5-14.5); RDW Standard Deviation 64.9 fL (36.4-46.3); Red Blood Count 2.65 M/uL (4.20-5.40); White Blood Count 3.63 K/ul (4.8-10.8)
[2024-07-31 05:12] LABS: BUN Creatinine Ratio 5.1 (10-20); Calcium 10.1 mg/dl (8.6-10.3); Magnesium 2.4 mg/dl (1.7-2.4); Potassium 4.7 mmol/L (3.5-5.1)
[2024-07-31] MEDS: CALCIUM ACETATE 667 MG CAP/TAB PO SCH (07:49)
--- NOTE | 2024-07-31 08:47 | Cardiology Consultation ---
Date of Consultation July 31, 2024 Assessment & Plan (1) Atypical chest pain: (2) ESRD (end stage renal disease) on dialysis: (3) Elevated troponin: (4) Stented coronary artery: (5) Chronic systolic CHF (congestive heart failure): Plan Assessment: 38 year old female with frequent hospital admissions s/t non- compliance and frequently missed hemodialysis appointments. Complains of persistent atypical chest pain in the setting of volume overload and multiple missed HD treatments. Cardiology requested for evaluation/recommendations. Plan: Atypical Chest pain CAD with prior PCI and ARIEL chronic Systolic HF Elevated Troponin ESRD on HD -Atypical chest pain constant in nature, unchanged except with administration of IV pain medications. -Reviewed EKG and telemetry with patient at time of ongoing episode which demonstrates normal sinus rhythm, no acute ST-T wave changes and No ectopy or arrhythmia -Troponin with mild elevation, flat trend. Important to note that patient has chronically elevated troponin in the setting of HF and ESRD. Will repeat troponin level at this time during her episode of chest pain -Recommend that patient undergo her HD treatment at the discretion of Nephrology. -BP stable. -Continue Amlodipine 2.5 QD, ASA 81mg QD, Atorvastatin 40mg QD, Plavix 75mg QD, Toprol xl 50mg BID -Will monitor labs. No further cardiac work up is indicated at this time. Case has been discussed with Dr. Posada. Further recommendations regarding plan of care as per his assessment. I spent a total of 40 minutes on the date of service in preparation, delivery, documentation of the care provided to the patient excluding any time spent in th e performance of separately billed services. ANGÉLICA Melendrez [facility] Supervising Physician Co-Signing Physician Notes Patient seen and examined. Full assessment and plan as outlined by advanced provider above. Care and management discussed and personally endorsed. 38-year-old female with recurrent hospitalization after missed dialysis appointments and noncardiac chest pain plan and recommendations as above Chronic troponin elevation noted but flat. EKGs without acute changes I spent a total of 30 minutes on the date of service in preparation, delivery, documentation of the care provided to the patient excluding any time spent in the performance of separately billed services. History of Present Illness Reason for Consultation: chest pain [facility]ing Physician: [facility] Attending Physician: Walker Tom MD History of Present Illness HPI: Patient has a 38 year old female with PMHX significant for chronic systolic heart failure [EF 45%, TTE 2023], diet-controlled DM type II, ESRD on hemodialysis, history of acute thrombosis of brachiocephalic vein, HTN, cardiomegaly, obstructive CAD s/p ARIEL to RCA + LAD, valvular heart disease (mild MR/MS), [place] [place] Mcgowan showed hemodynamically significant coronary artery disease. Mid LAD with 100% chronic total occlusion with bridging collaterals. 60 to 70% first obtuse marginal stenosis. Widely patent distal RCA stent. 70% ostial stenosis of the RPDA with AIDA III flow. Status post PCI of the LAD occlusion with a 2.75 x 38 mm Synergy drug-eluting stent with excellent angiographic result), GERD, restless leg syndrome, atypical chest pain, colonic polyps/diverticulosis, history of syncope and collapse, migraines, chronic anemia [baseline Hgb ~8-9], history FSGS s/p failed renal transplantation, depression with anxiety, bipolar disorder and medical noncompliance who presented to the emergency department via EMS for evaluation of chest pain this evening. Patient is well known to our service. She was was in the ER several times last week due to missing her OP dialysis appointments. Most recent ER visit yesterday. She was discharged with the understanding that she was to attend her dialysis appt this morning; however, reports that when she woke feeling lightheaded and opted to come to the ER instead of attending dialysis. She complains of continued chronic ongoing chest pain, reported taking tylenol without relief. Last HD session was yesterday. Troponin on admission 64.3/ 66.5/67.7/66.1 Flat trend. Of note, patient has chronic elevation in troponin. EKG on admission NSR, Left anterior fascicular block, rate 89bpm NO acute ST or T wave changes. Chest xray: IMPRESSION: Radiographic features favoring volume overload with enlarged cardiac silhouette. Upon seeing patient today she is laying in bed resting comfortably. She reports a 10/10 chest pain across her anterior chest. Review of telemetry shows SR with no acute events. Patient is slated for HD today, but does not think she needs it as she feels that she is at her "dry weight". Her face is quite puffy and she denies feeling this. When asked what makes her pain better or worse, she reports morphine, but that "they are refusing to give it to me" and became tearful. Allergies Allergy/AdvReac Type Severity Reaction Status Date / Time cefaclor Allergy Intermediate Rash Verified 07/24/24 09:26 Cephalosporins Allergy Intermediate Rash Verified 07/24/24 09:26 amoxicillin AdvReac Intermediate VOMITING Verified 07/24/24 09:26 clavulanic acid AdvReac Intermediate VOMITING Verified 07/24/24 09:26 Home Medications Medication Instructions Recorded Confirmed Type carbamazepine 200 mg tablet 200 mg PO AMPM 06/08/23 07/30/24 History hydroxyzine HCl 25 mg tablet 25 mg PO Q6H PRN Anxiety 06/08/23 07/30/24 History lorazepam 0.5 mg tablet 0.5 mg PO Q8H PRN Anxiety 06/08/23 07/30/24 History vitamin B complex-vitamin C-folic 1 tab PO DAILY 06/08/23 07/30/24 History acid 0.8 mg tablet (Renal-Rika) benzonatate 100 mg capsule 200 mg PO TID PRN Cough 08/29/23 07/30/24 History calcium acetate(phosphat bind) 667 2,001 mg PO UD 08/29/23 07/30/24 History mg capsule medroxyprogesterone 150 mg/mL 150 mg IM UD 08/29/23 07/30/24 History intramuscular suspension (Depo-Provera) lidocaine 5 % topical ointment 1 applic topical QID PRN pain #30 04/11/24 07/30/24 Rx grams bupropion HCl 150 mg 24 hr tablet, 150 mg PO QAM 04/17/24 07/30/24 History extended release mirtazapine 7.5 mg tablet 7.5 mg PO HS 04/17/24 07/30/24 History aspirin 81 mg tablet,delayed 81 mg PO QAM #30 tabs 05/09/24 07/30/24 Rx release clopidogrel 75 mg tablet 75 mg PO QAM #30 tabs 05/09/24 07/30/24 Rx amlodipine 2.5 mg tablet 2.5 mg PO DAILY 07/24/24 07/30/24 History atorvastatin 40 mg tablet 40 mg PO QPM 07/24/24 07/30/24 History metoprolol succinate 50 mg 50 mg PO BID 07/24/24 07/30/24 History tablet,extended release 24 hr varenicline 1 mg tablet 1 mg PO BID 07/24/24 07/30/24 History Patient History Medical History HTN (hypertension) Ischemic cardiomyopathy Status post insertion of drug-eluting stent into left anterior descending (LAD) artery Coronary artery disease ESRD (end stage renal disease) on dialysis Substernal chest pain Atypical chest pain Anemia Atypical chest pain CHF (congestive heart failure) Depression with anxiety DM2 (diabetes mellitus, type 2) Mood disorder Anxiety disorder, unspecified Abnormal chest xray Elevated lactic acid level Transaminitis Pneumonia Metabolic encephalopathy Acute non-ST elevation myocardial infarction (NSTEMI) Pulmonary edema Acute hyperkalemia Acute alteration in mental status Renal failure (ARF), acute on chronic Encephalopathy Facial fracture GI bleed ESRD (end stage renal disease) on dialysis Symptomatic anemia Tobacco abuse DVT prophylaxis Fistula right arm (currently being used) and left arm Dialysis patient SATURDAY/SAT/SATURDAY AT [facility] GERD (gastroesophageal reflux disease) Bipolar disorder Restless leg syndrome Peripheral neuropathy Asthma rare res inh use History of abnormal cervical Papanicolaou smear Elevated troponin Acute electrocardiogram changes Surgical History S/P right coronary artery (RCA) stent placement History of heart artery stent H/O eye surgery LASER SURGERY LEFT History of surgery left arm d/t clot in arm from AV fistula use @ [facility] History of surgery (~09/09/20) perm cath > since removed History of colonoscopy Kidney transplant recipient 2013 AT [facility] History of tooth extraction three TOOTH History of cardiac cath 2016 NO STENTS AVF (arteriovenous fistula) bilat upper arms ---currently using right for dialysis Family History Grandmother Hx of CABG Mother Diabetes Father Crohn's disease Grandfather (Maternal) Diabetes Uncle Diabetes Grandmother (Maternal) Family history of reaction to anesthesia difficulty waking with colonoscopy Social History Smoking Status: Never smoker Tobacco Type: Cigarettes Cigarettes Per Day: 20; Second Hand Exposure: No; Do You Dip or Chew Tobacco: No; Hx Alcohol Use: No Hx Substance Use: Yes Last Used Substance Other:: 2 weeks ago uses THC for sleep Substance Use Type Other:: THC to help with sleep Preferred Language: Latvian Communication Ability: Effective Call Center Assistant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 Beliefs That Will Affect Care: None marital status: Single Current Living Situation: Family Current Living Situation Comment: lives with family members How many Children do You have: 3 Other Information That Helps Us Care for You: No Feels Safe at Home: Yes Safety Concerns: Feels Safe At This Time Assistive Devices: None Review of Systems Review of Systems: All systems reviewed & are unremarkable except as noted in HPI & below Physical Exam Constitutional: well developed and well nourished; no acute distress and not ill appearing Neck: normal visual inspection and trachea midline Respiratory: normal respiratory effort; no respiratory distress, no labored breathing and no cough Auscultation: lungs clear to auscultation bilaterally and + diminished lung sounds (diminished in bilateral bases ); no crackles, no rales and no rhonchi Cardiovascular: Rate/Rhythm: regular rate and regular rhythm Heart Sounds: normal S1 and normal S2; no murmur Vessels: dorsalis pedis pulses present; no JVD Extremities: + edema (facial edema ) Skin: no rashes, warm and dry Psychiatric: Orientation: alert and oriented x 3 Affect: + anxious affect and + tearful affect Results & Data Vital Signs (Past 12 Hours) Vital Signs Temp Pulse Pulse Resp BP Pulse Ox O2 Del Method 07/31/24 08:04 36.7 C 76 18 148/90 H 95 Room Air 07/31/24 07:33 74 07/31/24 06:41 137/76 07/31/24 06:35 79 16 136/83 97 Room Air 07/31/24 02:50 115/77 07/31/24 02:11 36.6 C 80 16 135/87 96 Room Air 07/31/24 01:01 90 07/30/24 23:13 132/78 07/30/24 22:08 36.7 C 84 18 158/108 H 99 Room Air 07/30/24 21:30 36.7 C 84 16 158/108 H 99 Room Air Laboratory Results Cardiac Enzymes 07/30/24 07/30/24 07/30/24 Range/Units 17:25 19:45 22:22 AST 21 (13-39) U/L Troponin I High Sens 64.3 H* 66.5 H* 67.7 H* (0-14) pg/ml 07/31/24 Range/Units 04:13 AST (13-39) U/L Troponin I High Sens 66.1 H* (0-14) pg/ml Coagulation 07/30/24 Range/Units 17:25 PT 11.1 (9.0-12.0) Seconds APTT 25 (21-31) Seconds CBC 07/30/24 07/31/24 Range/Units 17:25 04:13 WBC 3.01 L 3.63 L (4.8-10.8) K/ul RBC 2.78 L 2.65 L (4.20-5.40) M/uL Hgb 9.1 L 8.7 L (12.0-16.0) g/dl Hct 28.6 L 27.3 L (37.0-47.0) % Plt Count 80 L 72 L (130-400) K/uL Neut # (Auto) 1.88 (1.40-6.50) K/uL Lymph # (Auto) 0.58 L (1.20-3.40) K/uL [place] # (Auto) 0.44 (0.11-0.59) K/uL Eos # (Auto) 0.09 (0.00-0.50) K/uL Baso # (Auto) 0.01 (0.00-0.20) K/uL Comprehensive Metabolic Panel 07/30/24 07/31/24 Range/Units 17:25 04:13 Sodium 140 139 (136-145) mmol/L Potassium 4.4 4.7 (3.5-5.1) mmol/L Chloride 91 L 92 L (98-107) mmol/L Carbon Dioxide 34 H 31 (21-32) mmol/L BUN 43 H 45 H (6-23) mg/dl Creatinine 8.27 H* 8.88 H* D (0.6-1.2) mg/dl Glucose 106 H 93 (70-99(Fasting)) mg/dl Calcium 10.2 10.1 (8.6-10.3) mg/dl AST 21 (13-39) U/L ALT 13 (7-52) U/L Alkaline Phosphatase 114 H (34-104) U/L Total Protein 6.6 (6.0-8.3) gm/dl Albumin 4.0 (3.4-5.0) gm/dl Intake and Output 07/30/24 07/31/24 07/31/24 22:59 06:59 14:59 Intake Total 60 / 460 400 / 460 Balance 60 / 460 400 / 460 Intake: Oral 60 / 460 400 / 460 Other: Weight 77.6 kg 77.6 kg Weight Measurement Method Standing Scale Standing Scale
[2024-07-31] MEDS: buPROPion XL 150 MG TABCR PO SCH (08:55)
[2024-07-31] MEDS: ASPIRIN 81 MG ECTAB PO SCH (08:55)
[2024-07-31] MEDS: CLOPIDOGREL BISULFATE 75 MG TAB PO SCH (08:56)
[2024-07-31] MEDS: NEPHROCAPS PO SCH (08:57)
[2024-07-31] MEDS: PANTOprazole 40 MG TAB PO SCH (08:58)
[2024-07-31] MEDS: amLODIPine BESYLATE 5 MG TAB PO SCH (10:02)
--- NOTE | 2024-07-31 10:46 | Hospitalist Progress Note ---
Date of Service July 31, 2024 Assessment & Plan (1) Chest pain: Plan: Most likely secondary to volume expansion and pulmonary engorgement as a result of volume overload, await nephrology to determine the plan of volume removal/hemodialysis. EKG will be monitored, cardiology consultations pending, troponins are not significantly elevated and these are probably due to poor clearance due to underlying renal dysfunction. (2) Pancytopenia: Plan: Multifactorial, her leukopenia is not new, anemia is most likely as a result of CKD/ESRD hemoglobin is between 8.5-9.2. Her platelet count is also around 70- 100 to the extent that I, so and could review, I could not find any formal evaluation or consultation by hematology so we will look into this and if needed may be referred for further workup as outpatient. (3) Elevated troponin: Plan: This is due to demand ischemia it appears although patient has underlying coronary disease with significant old appearing wall motion abnormality and ejection fraction of 40 to 45%. Defer management and recommendation to cardiology (4) Hypertension, essential: Plan: Blood pressure is controlled, continue with amlodipine 2.5 mg daily, Toprol XL 50 mg twice daily. (5) Chronic systolic CHF (congestive heart failure): Plan: Clinically stable although I think could reason for her volume overload is missed dialysis, continue with aspirin, Lipitor, Plavix, Toprol XL. Plan I would think that patient would be considered for 1 or 2 hemodialysis sessions over today and tomorrow and then will follow-up as outpatient. Await input from nephrology and cardiology. Admission and Anticipated Discharge Date Admission Date: July 30, 2024 Subjective Patient is a 38-year-old female with history of chronic systolic CHF with ejection fraction of 45%, diet-controlled diabetes mellitus type 2, end- stage renal disease on hemodialysis, poor compliance with hemodialysis, history of VTE of brachiocephalic vein, hypertension, coronary artery disease status post PCI who apparently has missed 2 most recent sessions of hemodialysis on Saturday and last Saturday. Patient came to the hospital with chest discomfort, she was found to have very minimally elevated troponin and EKG showing no change in her findings although she has very poor R progression in precordial leads, she had an echocardiogram in June 2024 showing ejection fraction of 45%, moderate concentric LVH and large size apical septal and anteroseptal wall motion abnormality. With moderate to severe mitral calcification her chest x- ray was compatible with some mild volume overload, patient was decided to be admitted for further management. On. Patient was seen and examined, cardiology is going to review the patient, her slightly elevated troponin is most likely due to underlying ESRD and volume overload. Follow with recommendation per nephrology for catch-up hemodialysis and if there is further recommendation by cardiology. Physical Exam Physical Exam: VITALS: Reviewed. WEIGHT/BMI reviewed. GEN: Healthy appearing, well-developed, NAD. NECK: Supple, with no masses. CV: RRR, no m/r/g. LUNGS: Mild bibasilar crackles, otherwise no wheeze. ABD: Soft, NT/ND, NBS, no masses or organomegaly. Results & Data Results & Data Vital Signs (Past 12 Hours) Vital Signs Temp Pulse Pulse Resp BP Pulse Ox O2 Del Method 07/31/24 08:55 133/76 07/31/24 08:04 36.7 C 76 18 148/90 H 95 Room Air 07/31/24 07:33 74 07/31/24 06:41 137/76 07/31/24 06:35 79 16 136/83 97 Room Air 07/31/24 02:50 115/77 07/31/24 02:11 36.6 C 80 16 135/87 96 Room Air 07/31/24 01:01 90 07/30/24 23:13 132/78 Laboratory Results Laboratory Results - last 24 hr 07/30/24 07/30/24 07/30/24 17:25 19:45 22:22 WBC 3.01 L RBC 2.78 L Hgb 9.1 L Hct 28.6 L MCV 102.9 H MCH 32.7 MCHC 31.8 L RDW Std Deviation 64.5 H RDW Coeff of Laith 16.8 H Plt Count 80 L MPV 10.8 Immature Gran % (Auto) 0.3 Neut % (Auto) 62.5 Lymph % (Auto) 19.3 [place] % (Auto) 14.6 Eos % (Auto) 3.0 Baso % (Auto) 0.3 Neut # (Auto) 1.88 Lymph # (Auto) 0.58 L [place] # (Auto) 0.44 Eos # (Auto) 0.09 Baso # (Auto) 0.01 Immature Gran # (Auto) 0.01 PT 11.1 INR 1.0 APTT 25 PTT Ratio 0.9 Sodium 140 Potassium 4.4 Chloride 91 L Carbon Dioxide 34 H Anion Gap 15 H BUN 43 H Creatinine 8.27 H* Est Cr Clr Drug Dosing 9.7 eGFR 5.86 BUN/Creatinine Ratio 5.2 L Glucose 106 H POC Glucose Calcium 10.2 Magnesium Total Bilirubin 0.7 AST 21 ALT 13 Alkaline Phosphatase 114 H Troponin I High Sens 64.3 H* 66.5 H* 67.7 H* Total Protein 6.6 Albumin 4.0 Globulin 2.6 Albumin/Globulin Ratio 1.5 Lipase 11 HCG, Qual Negative Nasal Screen MRSA (PCR) 07/31/24 07/31/24 07/31/24 01:14 04:13 07:41 WBC 3.63 L RBC 2.65 L Hgb 8.7 L Hct 27.3 L MCV 103.0 H MCH 32.8 MCHC 31.9 L RDW Std Deviation 64.9 H RDW Coeff of [place]ith 17.1 H Plt Count 72 L MPV 9.6 Immature Gran % (Auto) Neut % (Auto) Lymph % (Auto) [place] % (Auto) Eos % (Auto) Baso % (Auto) Neut # (Auto) Lymph # (Auto) [place] # (Auto) Eos # (Auto) Baso # (Auto) Immature Gran # (Auto) PT INR APTT PTT Ratio Sodium 139 Potassium 4.7 Chloride 92 L Carbon Dioxide 31 Anion Gap 16 H BUN 45 H Creatinine 8.88 H* D Est Cr Clr Drug Dosing 9.0 eGFR 5.38 BUN/Creatinine Ratio 5.1 L Glucose 93 POC Glucose 102 H Calcium 10.1 Magnesium 2.4 Total Bilirubin AST ALT Alkaline Phosphatase Troponin I High Sens 66.1 H* Total Protein Albumin Globulin Albumin/Globulin Ratio Lipase HCG, Qual Nasal Screen MRSA (PCR) Negative Diagnostic Findings Chest X-Ray 07/30/24 17:13 EXAM: X-ray chest 1 view not portable CLINICAL HISTORY: Chest pain PRIORS: 07/27/2024, 07/26/2024 TECHNIQUE: Upright AP view chest FINDINGS: The chest is well-expanded. Moderate enlargement of the cardiac silhouette, unchanged. Scattered vascular stents noted, unchanged. Mild prominence of the central pulmonary vasculature and bronchovascular markings, mildly increased when compared to 07/26/2024. No pneumothorax. Trachea is patent. Osseous structures demonstrate no acute abnormality. No radiopaque foreign body. IMPRESSION: Radiographic features favoring volume overload with enlarged cardiac silhouette. Electronically signed by Gilma Salmeron 07-30-2024 6:25 PM (1) Chest pain Chest pain type: unspecified Qualified Code(s): R07.9 - Chest pain, unspecified
[2024-07-31] MEDS: MoRPHine SULFATE 2 MG/ML CARP IV STA (11:31)
--- NOTE | 2024-07-31 11:34 | Electrocardiogram Report ---
Test Reason : Blood Pressure : */* mmHG Vent. Rate : 89 BPM Atrial Rate : 89 BPM P-R Int : 144 ms QRS Dur : 100 ms QT Int : 402 ms P-R-T Axes : 34 -47 23 degrees QTcB Int : 489 ms Normal sinus rhythm Left anterior fascicular block Moderate voltage criteria for LVH, may be normal variant ( R in aVL ) Anterolateral infarct (cited on or before 21-Mar-2018) Abnormal ECG When compared with ECG of 26-Jul-2024 13:31, No significant change was found Confirmed by Dash Tejada ([id number]) on 07/31/2024 11:34:32 AM Referred By: REFERRED SELF Confirmed By: Dash Tejada
--- NOTE | 2024-07-31 12:27 | Nephrology Consultation ---
Date of Consultation July 31, 2024 Assessment & Plan (1) ESRD (end stage renal disease) on dialysis: -plan for routine HD today w/ target of between 2-4L UF keeping sbp > 90 -AVF as access -next HD planned for 08/03 as IP or OP -1.2L FR and dialysis diet added to diet orders hgb 8.7 >> max dose EPO; doubt this contributes to chest pain; working to keep hgb > 8 for her -agree w/ continuing binders, nephrocaps (2) Chronic chest pain: per primary service and cardiology (3) Chronic systolic CHF (congestive heart failure): some e/o mild volume overload today likely from missing 2 txs in last 10 days -UF as above History of Present Illness Reason for Consultation: ESRD on HD Requesting Physician: Dr Leon Attending Physician: Walker Tom MD History of Present Illness 38 y/o F whom I'm asked to see for ESRD on HD was admitted for evaluation of recurrent chest pain. PMH includes 05/07/24 L heart cath w/ urgent distal R coronary artery stent and severe multivessel coronary disease on aspirin and plavix, also s/p high risk LAD stent 05/2024; TTE 04/2024 w/ moderate CLVH and some hypokinesis (EF 45%); hx large bleeding hemorrhoids, DM2, HTN, GERD, hx of failed renal transplant, bipolar disorder/anxiety, restless leg syndrome; hx of acute thrombosis of brachiocephalic vein, s/p summer 2023 pelvic fracture (second one / likely related to renal osteodystrophy) causing her pain and somewhat limiting ambulation. She is frequently nonadherent to OP treatments d/t uncontrolled anxiety and/or other psychosocial issues. has been to ER daily 07/24-07/27 w/ c/o chest pain; was admitted here in June as well for this x 3 and deemed non cardiac each time after thorough cardiac evaluation. She tells me the CP starts retrosternal and radiates to R shoulder; does not go to her back or L side or jaw. improved by lying on belly. no relation to po or to exertion or to dialysis. denies f/c, sob, n/v; worsening of chronic pelvic pain. ambulates w/o asst. anuric. no abd pain or diarrhea. cardiology is evaluating the patient; no evidence so far of cardiac etiology. she often misses dialysis d/t anxiety, oversleeping, psychosocial issues and recently d/t multiple ER visits. her target weight is 77.5 kg. she missed her 07/22 and 07/27 treatments. on 07/24 her post weight was 80.9; on 07/29 it was 78.9. Allergies Allergy/AdvReac Type Severity Reaction Status Date / Time cefaclor Allergy Intermediate Rash Verified 07/24/24 09:26 Cephalosporins Allergy Intermediate Rash Verified 07/24/24 09:26 amoxicillin AdvReac Intermediate VOMITING Verified 07/24/24 09:26 clavulanic acid AdvReac Intermediate VOMITING Verified 07/24/24 09:26 Home Medications Medication Instructions Recorded Confirmed Type carbamazepine 200 mg tablet 200 mg PO AMPM 06/08/23 07/30/24 History hydroxyzine HCl 25 mg tablet 25 mg PO Q6H PRN Anxiety 06/08/23 07/30/24 History lorazepam 0.5 mg tablet 0.5 mg PO Q8H PRN Anxiety 06/08/23 07/30/24 History vitamin B complex-vitamin C-folic 1 tab PO DAILY 06/08/23 07/30/24 History acid 0.8 mg tablet (Renal-Rika) benzonatate 100 mg capsule 200 mg PO TID PRN Cough 08/29/23 07/30/24 History calcium acetate(phosphat bind) 667 2,001 mg PO UD 08/29/23 07/30/24 History mg capsule medroxyprogesterone 150 mg/mL 150 mg IM UD 08/29/23 07/30/24 History intramuscular suspension (Depo-Provera) lidocaine 5 % topical ointment 1 applic topical QID PRN pain #30 04/11/24 07/30/24 Rx grams bupropion HCl 150 mg 24 hr tablet, 150 mg PO QAM 04/17/24 07/30/24 History extended release mirtazapine 7.5 mg tablet 7.5 mg PO HS 04/17/24 07/30/24 History aspirin 81 mg tablet,delayed 81 mg PO QAM #30 tabs 05/09/24 07/30/24 Rx release clopidogrel 75 mg tablet 75 mg PO QAM #30 tabs 05/09/24 07/30/24 Rx amlodipine 2.5 mg tablet 2.5 mg PO DAILY 07/24/24 07/30/24 History atorvastatin 40 mg tablet 40 mg PO QPM 07/24/24 07/30/24 History metoprolol succinate 50 mg 50 mg PO BID 07/24/24 07/30/24 History tablet,extended release 24 hr varenicline 1 mg tablet 1 mg PO BID 07/24/24 07/30/24 History Patient History Medical History HTN (hypertension) Ischemic cardiomyopathy Status post insertion of drug-eluting stent into left anterior descending (LAD) artery Coronary artery disease ESRD (end stage renal disease) on dialysis Substernal chest pain Atypical chest pain Anemia Atypical chest pain CHF (congestive heart failure) Depression with anxiety DM2 (diabetes mellitus, type 2) Mood disorder Anxiety disorder, unspecified Abnormal chest xray Elevated lactic acid level Transaminitis Pneumonia Metabolic encephalopathy Acute non-ST elevation myocardial infarction (NSTEMI) Pulmonary edema Acute hyperkalemia Acute alteration in mental status Renal failure (ARF), acute on chronic Encephalopathy Facial fracture GI bleed ESRD (end stage renal disease) on dialysis Symptomatic anemia Tobacco abuse DVT prophylaxis Fistula right arm (currently being used) and left arm Dialysis patient SATURDAY/SAT/SATURDAY AT [facility] GERD (gastroesophageal reflux disease) Bipolar disorder Restless leg syndrome Peripheral neuropathy Asthma rare res inh use History of abnormal cervical Papanicolaou smear Elevated troponin Acute electrocardiogram changes Surgical History S/P right coronary artery (RCA) stent placement History of heart artery stent H/O eye surgery LASER SURGERY LEFT History of surgery left arm d/t clot in arm from AV fistula use @ [facility] History of surgery (~09/09/20) perm cath > since removed History of colonoscopy Kidney transplant recipient 2013 AT [facility] History of tooth extraction three TOOTH History of cardiac cath 2016 NO STENTS AVF (arteriovenous fistula) bilat upper arms ---currently using right for dialysis Family History Grandmother Hx of CABG Mother Diabetes Father Crohn's disease Grandfather (Maternal) Diabetes Uncle Diabetes Grandmother (Maternal) Family history of reaction to anesthesia difficulty waking with colonoscopy Social History Smoking Status: Never smoker Tobacco Type: Cigarettes Cigarettes Per Day: 20; Second Hand Exposure: No; Do You Dip or Chew Tobacco: No; Hx Alcohol Use: No Hx Substance Use: Yes Last Used Substance Other:: 2 weeks ago uses THC for sleep Substance Use Type Other:: THC to help with sleep Preferred Language: Kiswahili Communication Ability: Effective Co Founder And Cto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 Beliefs That Will Affect Care: None marital status: Single Current Living Situation: Family Current Living Situation Comment: lives with family members How many Children do You have: 3 Other Information That Helps Us Care for You: No Feels Safe at Home: Yes Safety Concerns: Feels Safe At This Time Assistive Devices: None Review of Systems 2 Review of Systems: All systems reviewed & are unremarkable except as noted in HPI & below Physical Exam 2 Constitutional: well developed and well nourished Eyes: EOM intact bilaterally ENMT: Mouth: + dry oral mucous membranes Respiratory: normal respiratory effort Auscultation: + diminished lung sounds Cardiovascular: Rate/Rhythm: regular rate and regular rhythm Extremities: + AV fistula; no edema Gastrointestinal (Abdomen): Inspection/Auscultation: normal bowel sounds P ercussion/Palpation: abdomen soft; abdomen nontender Musculoskeletal: Extremities: strength 5/5 throughout Skin: no rashes, warm and dry Neurologic: sandy, fluent speech, no tremor Results & Data Vital Signs (Past 12 Hours) Vital Signs Temp Pulse Pulse Resp BP Pulse Ox O2 Del Method 07/31/24 10:52 36.9 C 78 18 138/84 95 Room Air 07/31/24 08:55 133/76 07/31/24 08:04 36.7 C 76 18 148/90 H 95 Room Air 07/31/24 07:33 74 07/31/24 06:41 137/76 07/31/24 06:35 79 16 136/83 97 Room Air 07/31/24 02:50 115/77 07/31/24 02:11 36.6 C 80 16 135/87 96 Room Air 07/31/24 01:01 90 Laboratory Results 07/31/24 04:13 07/31/24 04:13 Diagnostic Findings cxr w/ mild volume overload
[2024-07-31] MEDS: ACETAMINOPHEN 325 MG TAB PO PRN (15:24)
[2024-07-31] MEDS: HYDROmorphone INJ 0.5 MG/0.5 ML SYR IV STA (22:06)
[2024-08-01 07:20] LABS: Potassium 5.1 mmol/L (3.5-5.1)
[2024-08-01 07:23] VITALS: BP 141/83; RESP 17; TEMP 98.1; O2SAT 97
[2024-08-01 07:30] LABS: BUN Creatinine Ratio 5.2 (10-20); Creatinine Clr Calc Pharmacy 10.2 ml/min
[2024-08-01] MEDS: EPOETIN ALFA 20,000 UNITS/ML VIAL IV ONE (07:46)
[2024-08-01 10:30] VITALS: PULSE 78
--- NOTE | 2024-08-03 09:56 | Electrocardiogram Report ---
Test Reason : Blood Pressure : */* mmHG Vent. Rate : 83 BPM Atrial Rate : 83 BPM P-R Int : 268 ms QRS Dur : 100 ms QT Int : 416 ms P-R-T Axes : 181 -36 -10 degrees QTcB Int : 488 ms Poor data quality, interpretation may be adversely affected Probable Sinus rhythm Left anterior fascicular block Poor R wave progression, consider anterior ME vs. lead placement vs. LVH Abnormal ECG When compared with ECG of 30-Jul-2024 17:24, No significant change Confirmed by Balbir Meek ([id number]) on 08/03/2024 9:56:31 AM Referred By: REFERRED SELF Confirmed By: Balbir Meek
--- NOTE | 2024-08-03 09:57 | Electrocardiogram Report ---
Test Reason : Blood Pressure : */* mmHG Vent. Rate : 75 BPM Atrial Rate : 75 BPM P-R Int : 154 ms QRS Dur : 102 ms QT Int : 426 ms P-R-T Axes : 39 -49 5 degrees QTcB Int : 475 ms Normal sinus rhythm Left anterior fascicular block Poor R wave progression, consider anterior AK vs. lead placement vs. LVH Abnormal ECG When compared with ECG of 30-Jul-2024 22:00, No significant change Confirmed by Balbir Meek ([id number]) on 08/03/2024 9:57:02 AM Referred By: REFERRED SELF Confirmed By: Balbir Meek
--- NOTE | 2024-08-03 09:57 | Electrocardiogram Report ---
Test Reason : Blood Pressure : */* mmHG Vent. Rate : 77 BPM Atrial Rate : 77 BPM P-R Int : 152 ms QRS Dur : 102 ms QT Int : 488 ms P-R-T Axes : 43 1 6 degrees QTcB Int : 552 ms Normal sinus rhythm Poor R wave progression, consider anterior IL vs. lead placement vs. LVH Abnormal ECG When compared with ECG of 31-Jul-2024 06:33, Left anterior fascicular block is no longer Present Confirmed by Balbir Meek ([id number]) on 08/03/2024 9:57:25 AM Referred By: REFERRED SELF Confirmed By: Balbir Meek
--- NOTE | 2024-08-03 09:58 | Electrocardiogram Report ---
Test Reason : Blood Pressure : */* mmHG Vent. Rate : 72 BPM Atrial Rate : 72 BPM P-R Int : 152 ms QRS Dur : 106 ms QT Int : 470 ms P-R-T Axes : 49 -30 2 degrees QTcB Int : 514 ms Normal sinus rhythm Left anterior fascicular block Poor R wave progression, consider anterior ID vs. lead placement vs. LVH Abnormal ECG When compared with ECG of 31-Jul-2024 08:53, Left anterior fascicular block now present Confirmed by Balbir Meek ([id number]) on 08/03/2024 9:57:54 AM Referred By: REFERRED SELF Confirmed By: Balbir Meek
== END 2024-08-01 11:03 | disposition home or self-care (01) | DRG 313 ==
LOC: ED 17:07 → 2S 20:10 → SUATTDRO 20:10 → 2S 21:18

== ENCOUNTER 2024-08-09 23:41 | Inpatient (IN) ==
[2024-08-10] MEDS: ONDANSETRON INJ 2 MG/ML 2 ML VIAL IV STA (00:13)
[2024-08-10 00:37] LABS: iSTAT Creatinine 11.7 mg/dl (0.6-1.3); iSTAT Hemoglobin 8.8 g/dl (12.0-16.0); iSTAT Ionized Calcium 1.06 mmol/l (1.12-1.32); iSTAT Potassium 5.4 mmol/L (3.3-5.0)
[2024-08-10 00:40] LABS: Basophils # (auto) 0.02 K/uL (0.00-0.20); Basophils % (auto) 0.4 %; Eosinophils # (auto) 0.05 K/uL (0.00-0.50); Hematocrit (blood only) 26.5 % (37.0-47.0); Hemoglobin 8.5 g/dl (12.0-16.0); Immature Granulocytes # (auto) 0.02 K/uL (0.01-0.20); Immature Granulocytes % (auto) 0.4 %; Lymphocytes # (auto) 0.39 K/uL (1.20-3.40); Lymphocytes % (auto) 8.1 %; Mean Corpuscular Hemoglobin 32.8 pg (25.0-34.0); Mean Corpuscular Hgb Conc 32.1 g/dL (32.0-36.0); Mean Corpuscular Volume 102.3 fL (80.0-100.0); Mean Platelet Volume 10.5 fL (9.4-12.4); Monocytes # (auto) 0.37 K/uL (0.11-0.59); Monocytes % (auto) 7.7 %; Neutrophils # (auto) 3.95 K/uL (1.40-6.50); Neutrophils % (auto) 82.4 %; Platelet Count 92 K/uL (130-400); RDW Coefficient of Variation 17.9 % (11.5-14.5); RDW Standard Deviation 67.1 fL (36.4-46.3); Red Blood Count 2.59 M/uL (4.20-5.40)
[2024-08-10 01:13] LABS: Albumin Globulin Ratio 1.9 (0.9-2); Albumin Level 4.1 gm/dl (3.4-5.0); BUN Creatinine Ratio 6.6 (10-20); Bilirubin,Total 0.7 mg/dl (0.2-1.0); Calcium 9.6 mg/dl (8.6-10.3); Creatinine Clr Calc Pharmacy 8.4 ml/min; Globulin 2.2 gm/dl (2.5-4.0); Potassium 5.5 mmol/L (3.5-5.1); Total Protein 6.3 gm/dl (6.0-8.3)
[2024-08-10] MEDS: OPTIRAY 320 100ml IV ONE (01:41)
[2024-08-10] MEDS: LORazepam 2 MG/1 ML VIAL IV STA (01:42)
--- NOTE | 2024-08-10 02:09 | Emergency Department Note ---
Impression & Plan Abdominal pain, right lower quadrant admit to the [facility] ED Provider Note NAME: NATHALIA DUTTON AGE: 38 SEX: Female INFORMANT: Patient ED PROVIDER(S): Alisa Tejada DO CHIEF COMPLAINT: Right lower quadrant abdominal pain PLAN: Disposition: admit to the [facility] MEDICAL DECISION MAKING: this is a 38-year-old female patient with history of end-stage renal disease on dialysis who presents to the emergency department with worsening right lower quadrant abdominal pain. Patient was seen here on August 07 with the same complaint. She states that she has become more nauseated and dizzy since that time. She describes normal bowel movements and no vomiting. The patient did eat spaghetti for dinner but admits that probably was not the best decision. laboratory studies performed here in the emergency department revealed no leukocytosis. H&H were stable. Platelet count was 92,000 which is baseline for the patient. Potassium was slightly elevated at 5.4 but the patient is due for dialysis this morning. Glucose was 108. LFTs were normal. The patient does not produce urine. Patient went for CT scan of the abdomen/pelvis. The appendix appeared normal but there were some concerning findings noted as described by radiology including questionable lytic lesions to the pelvis and some pronounced collateral circulation in the abdomen warranting additional scanning of the chest. [facility] care. Triage Nursing notes: reviewed and agree With them. Vital Signs: reviewed and remarkable for hypertension and tachycardia Chronic Medical/Social Conditions affecting care: end-stage renal disease on dialysis Prior/ Outside/ External records reviewed: ER visit from Saturday where she presented with the same complaint. Differential Diagnosis: Colitis, appendicitis, diverticulitis, constipation Diagnostics, independently interpreted by me: Imaging studies: CT scan of the abdomen/pelvis: As per [facility] HPI: 38 year old Female arrives for evaluation of right lower quadrant abdominal pain. worsening right lower quadrant abdominal pain. Patient was seen here on August 07 with the same complaint. She states that she has become more nauseated and dizzy since that time. She describes normal bowel movements and no vomiting. The patient did eat spaghetti for dinner but admits that probably was not the best decision. PAST MEDICAL HISTORY: See Below, PAST SURGICAL HISTORY: See Below, SOCIAL HISTORY: See Below, HOME MEDICATIONS: See list ALLERGIES: see list VITALS: See Below PHYSICAL EXAMINATION: HEENT: Head - normocephalic and atraumatic. Pupils are equal, round, and reactive to light. Extraocular eye muscles are intact, and sclera are anicteric. Nose - moist nasal mucosa without discharge. Mouth - moist buccal mucosa. Oropharynx is nonerythematous and there is no tonsillar exudate or edema noted. Neck: Supple; no Cervical lymphadenopathy. Heart: Regular rate and rhythm. There is a normal S1 and S2 with no murmurs, clicks, or gallops appreciated. Lungs: Clear to auscultation bilaterally with no wheezes, rales, or rhonchi. Abdomen: Soft, moderate tenderness to palpation in the right lower quadrant of the abdomen. There were normal bowel sounds.There are no palpable pulsatile masses or hepatosplenomegaly. There is no guarding, rigidity, or rebound noted. Extremities: Fistulas in both upper extremities. No significant edema the lower extremities Skin: warm and dry with good turgor and no rashes. 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 A complete history and physical was performed. An IV was obtained through ultrasound guidance. She was given a dose of Zofran for her nausea. She went for CT scan of the abdomen/pelvis. Upon returning from radiology, she described feeling anxious and was given a dose of IV Ativan. I reviewed the results of the CT scan with the patient. I discussed the case with the [facility] Hospitalist to evaluate for further inpatient care. Past Med/Surg History Problem List (Updated 08/10/24 @ 07:03 by Alisa Tejada DO) Abdominal pain, right lower quadrant (Acute) Lower abdominal pain (Acute) Chronic systolic CHF (congestive heart failure) Hypertension, essential Chest pain (Acute) Atypical chest pain (Acute) Chronic chest pain Chest pain (Acute) HTN, goal below 130/80 Dyslipidemia, goal LDL below 70 Stented coronary artery Premature coronary artery disease Chest pain at rest Chest pain (Acute) Rhinovirus infection Abnormal laboratory test (Acute) Coronary artery disease due to calcified coronary lesion Dialysis complication (Acute) Syncope (Acute) Acute hyperkalemia (Acute) Symptomatic anemia (Acute) Episode of syncope Rectal bleeding Chest pain (Acute) ESRD on dialysis (Acute) Acute hyperkalemia (Acute) Elevated troponin (Acute) Chest pain not due to acute coronary syndrome (Acute) Bleeding external hemorrhoids (Acute) Non-compliance (Acute) Fluid overload (Acute) Uremia (Acute) Anemia (Acute) Depression (Acute) Weakness (Acute) Sleep deprivation (Acute) Hallucinations (Acute) Anemia (Acute) Dialysis patient (Acute) Medical non-compliance (Acute) Acute uremia (Acute) Shortness of breath (Acute) Elevated troponin (Acute) Acute hyperkalemia (Acute) SOB (shortness of breath) (Acute) SOB (shortness of breath) (Acute) Acute uremia (Acute) Somnolence (Acute) Medical non-compliance (Acute) Elevated troponin (Acute) Dialysis patient (Acute) Renal failure (Acute) Hyperkalemia (Acute) Thrombocytopenia COVID-19 (Acute) Renal osteodystrophy Anemia in ESRD (end-stage renal disease) ESRD (end stage renal disease) on dialysis (Acute) Anxiety Depression Major depressive disorder, recurrent, in partial remission Anemia of chronic disease Status post fall last fallNovember 2022 > nasal fx / knee pain, no surgery for either injury > resolved per pt report Prolonged QT interval (Acute) no cardio Anemia due to end stage renal disease (Acute) FSGS (focal segmental glomerulosclerosis) (Chronic) DX INITIALLY 2012 (CAUSING ESRD 2012) Medical History HTN (hypertension) Ischemic cardiomyopathy Status post insertion of drug-eluting stent into left anterior descending (LAD) artery Coronary artery disease ESRD (end stage renal disease) on dialysis Substernal chest pain Atypical chest pain Anemia Atypical chest pain CHF (congestive heart failure) Depression with anxiety DM2 (diabetes mellitus, type 2) Mood disorder Anxiety disorder, unspecified Abnormal chest xray Elevated lactic acid level Transaminitis Pneumonia Metabolic encephalopathy Acute non-ST elevation myocardial infarction (NSTEMI) Pulmonary edema Acute hyperkalemia Acute alteration in mental status Renal failure (ARF), acute on chronic Encephalopathy Facial fracture GI bleed ESRD (end stage renal disease) on dialysis Symptomatic anemia Tobacco abuse DVT prophylaxis Fistula right arm (currently being used) and left arm Dialysis patient SATURDAY/SAT/SATURDAY AT [facility] GERD (gastroesophageal reflux disease) Bipolar disorder Restless leg syndrome Peripheral neuropathy Asthma rare res inh use History of abnormal cervical Papanicolaou smear Elevated troponin Acute electrocardiogram changes Surgical History S/P right coronary artery (RCA) stent placement History of heart artery stent H/O eye surgery LASER SURGERY LEFT History of surgery left arm d/t clot in arm from AV fistula use @ [facility] History of surgery (~09/09/20) perm cath > since removed History of colonoscopy Kidney transplant recipient 2013 AT [facility] History of tooth extraction three TOOTH History of cardiac cath 2016 NO STENTS AVF (arteriovenous fistula) bilat upper arms ---currently using right for dialysis Family History Grandmother Hx of CABG Mother Diabetes Father Crohn's disease Grandfather (Maternal) Diabetes Uncle Diabetes Grandmother (Maternal) Family history of reaction to anesthesia difficulty waking with colonoscopy Social History Smoking Status: Former smoker Tobacco Type: Cigarettes Cigarettes Per Day: 20; Second Hand Exposure: No; Do You Dip or Chew Tobacco: No; Tobacco Cessation Education Requested by Patient: No Hx Alcohol Use: No Hx Substance Use: No Preferred Language: [place] Communication Ability: Effective Access Service Representative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 Beliefs That Will Affect Care: None marital status: Single Current Living Situation: Family Current Living Situation Comment: with grandparents How many Children do You have: 3 Other Information That Helps Us Care for You: No Feels Safe at Home: Yes Safety Concerns: Feels Safe At This Time Assistive Devices: None Allergies Allergies Allergy/AdvReac Type Severity Reaction Status Date / Time cefaclor Allergy Intermediate Rash Verified 08/10/24 00:08 Cephalosporins Allergy Intermediate Rash Verified 08/10/24 00:08 amoxicillin AdvReac Intermediate VOMITING Verified 08/10/24 00:08 clavulanic acid AdvReac Intermediate VOMITING Verified 08/10/24 00:08 Home Meds Home Medications Medication Instructions Recorded Confirmed carbamazepine 200 mg tablet 200 mg PO AMPM 06/08/23 08/10/24 hydroxyzine HCl 25 mg tablet 25 mg PO Q6H PRN Anxiety 06/08/23 08/10/24 lorazepam 0.5 mg tablet 0.5 mg PO Q8H PRN Anxiety 06/08/23 08/10/24 vitamin B complex-vitamin C-folic 1 tab PO QAM 06/08/23 08/10/24 acid 0.8 mg tablet (Renal-Rika) benzonatate 100 mg capsule 200 mg PO TID PRN Cough 08/29/23 08/10/24 calcium acetate(phosphat bind) 667 2,001 mg PO UD 08/29/23 08/10/24 mg capsule medroxyprogesterone 150 mg/mL 150 mg IM .EVERY 3 MONTHS 08/29/23 08/10/24 intramuscular suspension (Depo-Provera) bupropion HCl 150 mg 24 hr tablet, 150 mg PO QAM 04/17/24 08/10/24 extended release mirtazapine 7.5 mg tablet 7.5 mg PO HS 04/17/24 08/10/24 amlodipine 2.5 mg tablet 2.5 mg PO QAM 07/24/24 08/10/24 atorvastatin 40 mg tablet 40 mg PO QPM 07/24/24 08/10/24 metoprolol succinate 50 mg 50 mg PO BID 07/24/24 08/10/24 tablet,extended release 24 hr varenicline 1 mg tablet 1 mg PO BID 07/24/24 08/10/24 Previous Rx's Medication Instructions Recorded lidocaine 5 % topical ointment 1 applic topical QID PRN pain #30 04/11/24 grams aspirin 81 mg tablet,delayed 81 mg PO QAM #30 tabs 05/09/24 release clopidogrel 75 mg tablet 75 mg PO QAM #30 tabs 05/09/24 cyclobenzaprine 5 mg tablet 5 mg PO Q8H #30 tabs 08/01/24 Results & Data (ED) Vital Signs Vital Signs - 24 hr 08/09/24 23:47 08/09/24 23:52 08/10/24 00:00 Temperature 37.1 C Temperature Source Oral Pulse Rate 101 H 100 H 99 H Pulse Rate from SpO2 Sensor Pulse Rhythm Respiratory Rate 20 22 Respiratory Effort / Characteristics Non-Labored Spontaneous Respiratory Depth Normal Respiratory Pattern Regular Blood Pressure 144/67 H 152/79 H Blood Pressure Mean 92 113 Blood Pressure Position Lying Pulse Oximetry 95 97 Oxygen Delivery Method Room Air Oxygen Flow Rate Sepsis Recent Fever Within 48 Hours No Sepsis New/Unexplained Change in Mental Status No Sepsis Action Taken by Nursing No Action Required 08/10/24 00:14 08/10/24 01:30 08/10/24 02:00 Temperature Temperature Source Pulse Rate 100 H 101 H 102 H Pulse Rate from SpO2 Sensor 101 H Pulse Rhythm Regular Respiratory Rate 20 20 22 Respiratory Effort / Characteristics Respiratory Depth Respiratory Pattern Blood Pressure 128/75 124/74 Blood Pressure Mean 98 90 Blood Pressure Position Pulse Oximetry 97 96 97 Oxygen Delivery Method Room Air Oxygen Flow Rate 0 Sepsis Recent Fever Within 48 Hours Sepsis New/Unexplained Change in Mental Status Sepsis Action Taken by Nursing 08/10/24 02:00 08/10/24 03:01 Temperature Temperature Source Pulse Rate 99 H 101 H Pulse Rate from SpO2 Sensor 101 H Pulse Rhythm Respiratory Rate 18 21 Respiratory Effort / Characteristics Respiratory Depth Respiratory Pattern Blood Pressure 124/74 104/75 Blood Pressure Mean 88 92 Blood Pressure Position Pulse Oximetry 96 98 Oxygen Delivery Method Oxygen Flow Rate Sepsis Recent Fever Within 48 Hours Sepsis New/Unexplained Change in Mental Status Sepsis Action Taken by Nursing Laboratory Data 08/10/24 00:22 08/10/24 06:01 Lab Results 08/10/24 08/10/24 Range/Units 00:22 00:25 WBC 4.80 (4.8-10.8) K/ul RBC 2.59 L (4.20-5.40) M/uL Hgb 8.5 L (12.0-16.0) g/dl POC Hgb 8.8 L (12.0-16.0) g/dl Hct 26.5 L (37.0-47.0) % POC Hct 26 L (37-47) % MCV 102.3 H (80.0-100.0) fL MCH 32.8 (25.0-34.0) pg MCHC 32.1 (32.0-36.0) g/dL RDW Std Deviation 67.1 H (36.4-46.3) fL RDW Coeff of Laith 17.9 H (11.5-14.5) % Plt Count 92 L (130-400) K/uL MPV 10.5 (9.4-12.4) fL Immature Gran % (Auto) 0.4 % Neut % (Auto) 82.4 % Lymph % (Auto) 8.1 % [place] % (Auto) 7.7 % Eos % (Auto) 1.0 % Baso % (Auto) 0.4 % Neut # (Auto) 3.95 (1.40-6.50) K/uL Lymph # (Auto) 0.39 L (1.20-3.40) K/uL [place] # (Auto) 0.37 (0.11-0.59) K/uL Eos # (Auto) 0.05 (0.00-0.50) K/uL Baso # (Auto) 0.02 (0.00-0.20) K/uL Immature Gran # (Auto) 0.02 (0.01-0.20) K/uL POC Sodium 135 (135-144) mmol/L Sodium 138 (136-145) mmol/L POC Potassium 5.4 H (3.3-5.0) mmol/L Potassium 5.5 H (3.5-5.1) mmol/L POC Chloride 97 L (101-112) mmol/L Chloride 94 L (98-107) mmol/L Carbon Dioxide 30 (21-32) mmol/L POC Total CO2 28 (24-31) mmol/L Anion Gap 14 H (3-11) POC Anion Gap 16.0 (16-25) mmol/L POC BUN 58 H (7-18) mg/dl BUN 66 H (6-23) mg/dl Creatinine 10.02 H* (0.6-1.2) mg/dl POC Creatinine 11.7 H* (0.6-1.3) mg/dl Est Cr Clr Drug Dosing 8.4 ml/min eGFR 4.66 BUN/Creatinine Ratio 6.6 L (10-20) Glucose 111 H (70-99(Fasting)) mg/dl POC Glucose (other) 108 H (70-99) mg/dl Calcium 9.6 (8.6-10.3) mg/dl POC Ioniz Calcium Shadia 1.06 L (1.12-1.32) mmol/l Total Bilirubin 0.7 (0.2-1.0) mg/dl AST 13 (13-39) U/L ALT 11 (7-52) U/L Alkaline Phosphatase 100 (34-104) U/L Total Protein 6.3 (6.0-8.3) gm/dl Albumin 4.1 (3.4-5.0) gm/dl Globulin 2.2 L (2.5-4.0) gm/dl Albumin/Globulin Ratio 1.9 (0.9-2) Lipase 17 (11-82) U/L Administered Medications Tramadol HCl (Tramadol Hcl 50 Mg Tablet) 25 - 50 mg PO Q4H PRN PRN Reason: Pain Stop: 09/09/24 04:15 Last Admin: 08/10/24 04:33 Dose: 50 mg Documented By: ARMANDO Discontinued Medications Dextrose (Dextrose 50% 50 Ml Syringe) 50 ml IV NOW STA Stop: 08/10/24 04:21 Last Admin: 08/10/24 04:33 Dose: 50 ml Documented By: ARMANDO Insulin Human Regular (Novolin-R Insulin Per Unit Charge) 10 units IV NOW STA Stop: 08/10/24 04:24 Last Admin: 08/10/24 04:33 Dose: 10 units Documented By: ARMANDO Co-signed By: MINDY Ioversol (Optiray 320 100ml) 100 ml IV ONCE ONE Stop: 08/10/24 01:41 Last Admin: 08/10/24 01:41 Dose: 93 ml Documented By: DIGNA Lorazepam (Lorazepam 2 Mg/1 Ml Vial) 0.5 mg IV NOW STA Stop: 08/10/24 01:34 Last Admin: 08/10/24 01:42 Dose: 0.5 mg Documented By: ARMANDO Ondansetron HCl (Ondansetron Inj 2 Mg/Ml 2 Ml Vial) 4 mg IV NOW STA Stop: 08/10/24 00:10 Last Admin: 08/10/24 00:13 Dose: 4 mg Documented By: ARMANDO Sodium Bicarbonate (Sodium Bicarb 8.4% Inj 50 Meq/50 Ml Syr) 50 meq IV NOW STA Stop: 08/10/24 04:16 Last Admin: 08/10/24 04:33 Dose: 50 meq Documented By: ARMANDO Imaging Data Radiologist's Impression: Abdomen/Pelvis CT 08/10/24 00:09 EXAM: CT abd pelvis IV con only CLINICAL HISTORY: PAIN AT RLQ, EVAL FOR APPY, 93 ML OPTIRAY 320 TECHNIQUE: Multiple contiguous axial images were obtained from the level of diaphragm to the pubis symphysis. This study was acquired after the IV administration of iodinated contrast material, given the patient's indications for the examination. If IV contrast material had not been administered, the likelihood of detecting abnormalities relevant to the patient's condition would have been substantially decreased. Coronal and sagittal reformatted images were generated and reviewed to improve anatomic localization and optimize lesion detection. CT scan was performed according to ALARA (as low as reasonably achievable). COMPARISON: 26 August 2018. FINDINGS: Moderate cardiomegaly is noted. This has progressed compared to the previous study. Dense mitral valve calcifications are noted. This is a new finding. Mild pericardial effusion is noted. Previous study also showed mild pericardial effusion. Mild bilateral pleural effusion is noted. Previous study also showed mild pleural effusion. ABDOMEN/PELVIS: Hepatomegaly measuring 18.7 cm in craniocaudal extent. Small focal hyperenhancing lesion is noted involving the segment IV of the liver, possibility of focal hepatic hot spot sign. There is no intra or extrahepatic biliary ductal dilatation. Hepatic vasculature is patent. Gallbladder is not visualized, cholecystectomy status. The spleen is unremarkable. The pancreas is unremarkable. Both adrenal glands are unremarkable. Unchanged changes of bilateral chronic renal parenchymal disease in the form of significant atrophy of both the kidneys is noted. The ureters are normal in caliber and no ureteral calculi are seen. The bladder is normal in contour. No evidence of focal or diffuse bowel wall thickening or evidence of bowel obstruction is seen. Relatively unchanged multiple colonic diverticulae are noted. No signs of acute diverticulitis. Stable calcified lesion is noted in the right iliac fossa region. Possibility of calcified pseudoaneurysm. No adenopathy or fluid collections are seen. The aorta is normal in caliber. Atherosclerotic calcifications are noted involving aorta and its branches. These have increased as compared to the previous study. No aggressive appearing osseous lesions are identified. Fracture of the left superior and inferior pubic rami is noted with possible callus formation. Suspicious expansile lytic lesion are noted in these areas, possibility of Brown's tumor needs consideration. Multiple collateral vessels are noted in the subcutaneous plane of the anterior abdominal wall, within the rectus sheath and also within the peritoneal cavity extending up to the visualized portion of the anterior chest wall. IMPRESSION: 1. Moderate cardiomegaly is noted. This has progressed compared to the previous study. Dense mitral valve calcifications are noted. This is a new finding. 2. Mild pericardial effusion is noted. Previous study also showed mild pericardial effusion. 3. Mild bilateral pleural effusion is noted. Previous study also showed mild pleural effusion. 4. Small focal hyperenhancing lesion is noted involving the segment IV of the liver, possibility of focal hepatic hot spot sign. 5. Multiple collateral vessels are noted in the subcutaneous plane of the anterior abdominal wall, within the rectus sheath and also within the peritoneal cavity extending up to the visualized portion of the anterior chest wall. Possibility of superior vena cava obstruction needs consideration. Dedicated imaging of the chest with contrast is suggested for better evaluation. 6. Changes of chronic renal parenchymal disease in the form of significant parenchymal atrophy of both the kidneys. Unchanged compared to the previous study. 7. Hepatomegaly measuring 18.7 cm. 8. Expansile lytic lesion involving the superior and inferior pubic ramus on the left side with associated pathological fracture/callus formation. In the given imaging background of chronic renal parenchymal disease, possibility of Brown's tumor with pathological fracture needs consideration. This is a new finding. 9. Atherosclerotic calcifications are noted involving aorta and its branches. These have increased as compared to the previous study. 10. Uncomplicated colonic diverticulosis. 11. No ascites is noted in the current study. Previous study showed mild ascites. 12. Relatively unchanged calcified lesion is noted along the right external iliac vessels, possible calcified pseudoaneurysm. 13. Previously seen abdominal wall fat stranding has significantly reduced in the current study. 14. Appendix is normal. Electronically signed by Mj Downs 08-10-2024 03:37 AM Discharge Plan Visit Data Chief Complaint: Abdominal Pain Stated Complaint: Lower Abdominal Pain ED Provider: Alisa Tejada Discharge Problem: Abdominal pain, right lower quadrant Patient Disposition: Admitted As Inpatient Discharge Instructions Interventions: ED Discharge Assessment Last Done: 08/10/24 05:03
--- NOTE | 2024-08-10 03:38 | CT Scan Report ---
EXAM: CT abd pelvis IV con only CLINICAL HISTORY: PAIN AT RLQ, EVAL FOR APPY, 93 ML OPTIRAY 320 TECHNIQUE: Multiple contiguous axial images were obtained from the level of diaphragm to the pubis symphysis. This study was acquired after the IV administration of iodinated contrast material, given the patient's indications for the examination. If IV contrast material had not been administered, the likelihood of detecting abnormalities relevant to the patient's condition would have been substantially decreased. Coronal and sagittal reformatted images were generated and reviewed to improve anatomic localization and optimize lesion detection. CT scan was performed according to ALARA (as low as reasonably achievable). COMPARISON: 26 August 2018. FINDINGS: Moderate cardiomegaly is noted. This has progressed compared to the previous study. Dense mitral valve calcifications are noted. This is a new finding. Mild pericardial effusion is noted. Previous study also showed mild pericardial effusion. Mild bilateral pleural effusion is noted. Previous study also showed mild pleural effusion. ABDOMEN/PELVIS: Hepatomegaly measuring 18.7 cm in craniocaudal extent. Small focal hyperenhancing lesion is noted involving the segment IV of the liver, possibility of focal hepatic hot spot sign. There is no intra or extrahepatic biliary ductal dilatation. Hepatic vasculature is patent. Gallbladder is not visualized, cholecystectomy status. The spleen is unremarkable. The pancreas is unremarkable. Both adrenal glands are unremarkable. Unchanged changes of bilateral chronic renal parenchymal disease in the form of significant atrophy of both the kidneys is noted. The ureters are normal in caliber and no ureteral calculi are seen. The bladder is normal in contour. No evidence of focal or diffuse bowel wall thickening or evidence of bowel obstruction is seen. Relatively unchanged multiple colonic diverticulae are noted. No signs of acute diverticulitis. Stable calcified lesion is noted in the right iliac fossa region. Possibility of calcified pseudoaneurysm. No adenopathy or fluid collections are seen. The aorta is normal in caliber. Atherosclerotic calcifications are noted involving aorta and its branches. These have increased as compared to the previous study. No aggressive appearing osseous lesions are identified. Fracture of the left superior and inferior pubic rami is noted with possible callus formation. Suspicious expansile lytic lesion are noted in these areas, possibility of Brown's tumor needs consideration. Multiple collateral vessels are noted in the subcutaneous plane of the anterior abdominal wall, within the rectus sheath and also within the peritoneal cavity extending up to the visualized portion of the anterior chest wall. IMPRESSION: 1. Moderate cardiomegaly is noted. This has progressed compared to the previous study. Dense mitral valve calcifications are noted. This is a new finding. 2. Mild pericardial effusion is noted. Previous study also showed mild pericardial effusion. 3. Mild bilateral pleural effusion is noted. Previous study also showed mild pleural effusion. 4. Small focal hyperenhancing lesion is noted involving the segment IV of the liver, possibility of focal hepatic hot spot sign. 5. Multiple collateral vessels are noted in the subcutaneous plane of the anterior abdominal wall, within the rectus sheath and also within the peritoneal cavity extending up to the visualized portion of the anterior chest wall. Possibility of superior vena cava obstruction needs consideration. Dedicated imaging of the chest with contrast is suggested for better evaluation. 6. Changes of chronic renal parenchymal disease in the form of significant parenchymal atrophy of both the kidneys. Unchanged compared to the previous study. 7. Hepatomegaly measuring 18.7 cm. 8. Expansile lytic lesion involving the superior and inferior pubic ramus on the left side with associated pathological fracture/callus formation. In the given imaging background of chronic renal parenchymal disease, possibility of Brown's tumor with pathological fracture needs consideration. This is a new finding. 9. Atherosclerotic calcifications are noted involving aorta and its branches. These have increased as compared to the previous study. 10. Uncomplicated colonic diverticulosis. 11. No ascites is noted in the current study. Previous study showed mild ascites. 12. Relatively unchanged calcified lesion is noted along the right external iliac vessels, possible calcified pseudoaneurysm. 13. Previously seen abdominal wall fat stranding has significantly reduced in the current study. 14. Appendix is normal. Electronically signed by Mj Downs 08-10-2024 03:37 AM
[2024-08-10] MEDS ORDERED: ACETAMINOPHEN 325 MG TAB PO PRN (04:15)
[2024-08-10] MEDS: SODIUM BICARB 8.4% INJ 50 MEQ/50 ML SYR IV STA (04:33)
[2024-08-10] MEDS: NovoLIN-R INSULIN PER UNIT CHARGE IV STA (04:33)
[2024-08-10] MEDS: traMADol HCL 50 MG TABLET PO PRN (04:33)
[2024-08-10] MEDS: DEXTROSE 50% 50 ML SYRINGE IV STA (04:33)
--- NOTE | 2024-08-10 04:36 | History & Physical Report ---
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 (Previously noted on outpatient plain x-ray imaging from April 2024, patient without unusual pain complaints) hx CAD status post recent stent (04/2024) hypertension BP slightly elevated DM2, diet controlled, well-controlled as of recent hemoglobin A1c of 5.6 last March 2024 medical noncompliance ongoing tobacco abuse on Chantix PCU Bicarb and IV insulin for hyperkalemia TTE re: pericardial effusion CT chest with contrast RE abnormal collateral vessels rule out SVC syndrome Nephrology consult Re: Dialysis management Judicious narcotic use given patient history of drug-seeking behavior ISS BG goal 110-140, carb count coverage DVT prophylaxis. SCDs recent GI bleed Full code Text document was generated using [employer] voice recognition software. It may contain grammatical or spelling errors. Kindly contact undersigned for clarification of any documentation item in question. History of Present Illness Chief Complaint: Right-sided abdominal pain Primary Care Provider: Adolph Aldridge MD History obtained from patient and records. Medical history significant for chronic systolic heart failure (EF 45%, TTE 2023), CAD status post recent stent, valvular heart disease (mild MR/MS), hypertension, ESRD on HD, history of FSGS status post failed renal transplantation, DM2 diet controlled, anxiety/mood disorder, colonic polyps/diverticulosis, RLS, chronic anemia (baseline hemoglobin of 8-9), history of migraine, medical noncompliance, ongoing tobacco abuse. Multiple [facility] admissions and ER visits since 2016. Recent overnight confinement July 30 to 2023 for chest pain attributed to volume overload. Recent ER visit 3 days ago for achy right-sided abdominal pain without other symptoms. Patient discharged home. At home, patient had worsening discomfort after eating spaghetti. Nausea without emesis. No diarrhea. No headache, no chest pain, no SOB. Compliant with dialysis. Intractable discomfort at the ER. Medical History as above Surgical History : Vascular procedures, section, cystoscopy, knee surgery, eye surgery, BTL, renal biopsy, kidney transplant Family History : SLE, Crohn's disease, high blood pressure, depression Personal/Social history: past tobacco abuse, no EtOH intake, disabled Allergies Allergy/AdvReac Type Severity Reaction Status Date / Time cefaclor Allergy Intermediate Rash Verified 08/10/24 00:08 Cephalosporins Allergy Intermediate Rash Verified 08/10/24 00:08 amoxicillin AdvReac Intermediate VOMITING Verified 08/10/24 00:08 clavulanic acid AdvReac Intermediate VOMITING Verified 08/10/24 00:08 Home Medications Medication Instructions Recorded Confirmed Type carbamazepine 200 mg tablet 200 mg PO AMPM 06/08/23 08/10/24 History hydroxyzine HCl 25 mg tablet 25 mg PO Q6H PRN Anxiety 06/08/23 08/10/24 History lorazepam 0.5 mg tablet 0.5 mg PO Q8H PRN Anxiety 06/08/23 08/10/24 History vitamin B complex-vitamin C-folic 1 tab PO QAM 06/08/23 08/10/24 History acid 0.8 mg tablet (Renal-Rika) benzonatate 100 mg capsule 200 mg PO TID PRN Cough 08/29/23 08/10/24 History calcium acetate(phosphat bind) 667 2,001 mg PO UD 08/29/23 08/10/24 History mg capsule medroxyprogesterone 150 mg/mL 150 mg IM .EVERY 3 MONTHS 08/29/23 08/10/24 History intramuscular suspension (Depo-Provera) lidocaine 5 % topical ointment 1 applic topical QID PRN pain #30 04/11/24 08/10/24 Rx grams bupropion HCl 150 mg 24 hr tablet, 150 mg PO QAM 04/17/24 08/10/24 History extended release mirtazapine 7.5 mg tablet 7.5 mg PO HS 04/17/24 08/10/24 History aspirin 81 mg tablet,delayed 81 mg PO QAM #30 tabs 05/09/24 08/10/24 Rx release clopidogrel 75 mg tablet 75 mg PO QAM #30 tabs 05/09/24 08/10/24 Rx amlodipine 2.5 mg tablet 2.5 mg PO QAM 07/24/24 08/10/24 History atorvastatin 40 mg tablet 40 mg PO QPM 07/24/24 08/10/24 History metoprolol succinate 50 mg 50 mg PO BID 07/24/24 08/10/24 History tablet,extended release 24 hr varenicline 1 mg tablet 1 mg PO BID 07/24/24 08/10/24 History cyclobenzaprine 5 mg tablet 5 mg PO Q8H #30 tabs 08/01/24 08/10/24 Rx Past Med/Surg History Problem List (Updated 08/10/24 @ 07:46 by Gilles Cunningham MD) Pericardial effusion Abdominal pain, right lower quadrant (Acute) Lower abdominal pain (Acute) Chronic systolic CHF (congestive heart failure) Hypertension, essential Chest pain (Acute) Atypical chest pain (Acute) Chronic chest pain Chest pain (Acute) HTN, goal below 130/80 Dyslipidemia, goal LDL below 70 Stented coronary artery Premature coronary artery disease Chest pain at rest Chest pain (Acute) Rhinovirus infection Abnormal laboratory test (Acute) Coronary artery disease due to calcified coronary lesion Dialysis complication (Acute) Syncope (Acute) Acute hyperkalemia (Acute) Symptomatic anemia (Acute) Episode of syncope Rectal bleeding Chest pain (Acute) ESRD on dialysis (Acute) Acute hyperkalemia (Acute) Elevated troponin (Acute) Chest pain not due to acute coronary syndrome (Acute) Bleeding external hemorrhoids (Acute) Non-compliance (Acute) Fluid overload (Acute) Uremia (Acute) Anemia (Acute) Depression (Acute) Weakness (Acute) Sleep deprivation (Acute) Hallucinations (Acute) Anemia (Acute) Dialysis patient (Acute) Medical non-compliance (Acute) Acute uremia (Acute) Shortness of breath (Acute) Elevated troponin (Acute) Acute hyperkalemia (Acute) SOB (shortness of breath) (Acute) SOB (shortness of breath) (Acute) Acute uremia (Acute) Somnolence (Acute) Medical non-compliance (Acute) Elevated troponin (Acute) Dialysis patient (Acute) Renal failure (Acute) Hyperkalemia (Acute) Thrombocytopenia COVID-19 (Acute) Renal osteodystrophy Anemia in ESRD (end-stage renal disease) ESRD (end stage renal disease) on dialysis (Acute) Anxiety Depression Major depressive disorder, recurrent, in partial remission Anemia of chronic disease Status post fall last fallNovember 2022 > nasal fx / knee pain, no surgery for either injury > resolved per pt report Prolonged QT interval (Acute) no cardio Anemia due to end stage renal disease (Acute) FSGS (focal segmental glomerulosclerosis) (Chronic) DX INITIALLY 2012 (CAUSING ESRD 2012) Medical History HTN (hypertension) Ischemic cardiomyopathy Status post insertion of drug-eluting stent into left anterior descending (LAD) artery Coronary artery disease ESRD (end stage renal disease) on dialysis Substernal chest pain Atypical chest pain Anemia Atypical chest pain CHF (congestive heart failure) Depression with anxiety DM2 (diabetes mellitus, type 2) Mood disorder Anxiety disorder, unspecified Abnormal chest xray Elevated lactic acid level Transaminitis Pneumonia Metabolic encephalopathy Acute non-ST elevation myocardial infarction (NSTEMI) Pulmonary edema Acute hyperkalemia Acute alteration in mental status Renal failure (ARF), acute on chronic Encephalopathy Facial fracture GI bleed ESRD (end stage renal disease) on dialysis Symptomatic anemia Tobacco abuse DVT prophylaxis Fistula right arm (currently being used) and left arm Dialysis patient SATURDAY/SAT/SATURDAY AT [facility] GERD (gastroesophageal reflux disease) Bipolar disorder Restless leg syndrome Peripheral neuropathy Asthma rare res inh use History of abnormal cervical Papanicolaou smear Elevated troponin Acute electrocardiogram changes Surgical History S/P right coronary artery (RCA) stent placement History of heart artery stent H/O eye surgery LASER SURGERY LEFT History of surgery left arm d/t clot in arm from AV fistula use @ [facility] History of surgery (~09/09/20) perm cath > since removed History of colonoscopy Kidney transplant recipient 2013 AT [facility] History of tooth extraction three TOOTH History of cardiac cath 2016 NO STENTS AVF (arteriovenous fistula) bilat upper arms ---currently using right for dialysis Family History Grandmother Hx of CABG Mother Diabetes Father Crohn's disease Grandfather (Maternal) Diabetes Uncle Diabetes Grandmother (Maternal) Family history of reaction to anesthesia difficulty waking with colonoscopy Social History Smoking Status: Former smoker Tobacco Type: Cigarettes Cigarettes Per Day: 20; Second Hand Exposure: No; Do You Dip or Chew Tobacco: No; Tobacco Cessation Education Requested by Patient: No Hx Alcohol Use: No Hx Substance Use: No Preferred Language: Yoruba Communication Ability: Effective Route Rider Supervisor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 Beliefs That Will Affect Care: None marital status: Single Current Living Situation: Family Current Living Situation Comment: with grandparents How many Children do You have: 3 Other Information That Helps Us Care for You: No Feels Safe at Home: Yes Safety Concerns: Feels Safe At This Time Assistive Devices: None Review of Systems Review of Systems: As per HPI, all other systems reviewed and negative Physical Exam Physical Exam: GENERAL: Comfortable, obese, looks older than stated age, texting on her phone, no respiratory distress SKIN: Pallor, warm HEENT: Pale palpebral conjunctivae, no ptosis, dry buccal mucosa NECK : Supple, short neck, no tenderness CHEST : Decreased breath sounds, no tenderness HEART : RRR, no obvious murmurs ABDOMEN: Some distention, minimal RLQ tenderness EXTREMITIES : Minimal LE swelling, no LE tenderness, upper extremity AV grafts, no other conspicuous deformities noted NEUROLOGIC : Coherent, no facial asymmetry, no other gross focality Results & Data Results & Data Vital Signs (Past 12 Hours) Vital Signs Temp Pulse Resp BP Pulse Ox O2 Del Method O2 Flow Rate 08/10/24 02:00 102 H 22 124/74 97 08/10/24 01:30 101 H 20 128/75 96 08/10/24 00:14 100 H 20 97 Room Air 0 08/10/24 00:00 99 H 22 152/79 H 97 08/09/24 23:52 37.1 C 100 H 20 144/67 H 95 Room Air 08/09/24 23:47 101 H Laboratory Results Laboratory Results WBC 4.80 K/ul (4.8-10.8) 08/10/24 00:22 RBC 2.59 M/uL (4.20-5.40) L 08/10/24 00:22 Hgb 8.5 g/dl (12.0-16.0) L 08/10/24 00:22 POC Hgb 8.8 g/dl (12.0-16.0) L 08/10/24 00:25 Hct 26.5 % (37.0-47.0) L 08/10/24 00:22 POC Hct 26 % (37-47) L 08/10/24 00:25 MCV 102.3 fL (80.0-100.0) H 08/10/24 00:22 MCH 32.8 pg (25.0-34.0) 08/10/24 00:22 MCHC 32.1 g/dL (32.0-36.0) 08/10/24 00:22 RDW Std Deviation 67.1 fL (36.4-46.3) H 08/10/24 00:22 RDW Coeff of Laith 17.9 % (11.5-14.5) H 08/10/24 00:22 Plt Count 92 K/uL (130-400) L 08/10/24 00:22 MPV 10.5 fL (9.4-12.4) 08/10/24 00:22 Immature Gran % (Auto) 0.4 % 08/10/24 00: Neut % (Auto) 82.4 % 08/10/24 00:22 Lymph % (Auto) 8.1 % 08/10/24 00:22 [place] % (Auto) 7.7 % 08/10/24 00:22 Eos % (Auto) 1.0 % 08/10/24 00:22 Baso % (Auto) 0.4 % 08/10/24 00:22 Neut # (Auto) 3.95 K/uL (1.40-6.50) 08/10/24 00:22 Lymph # (Auto) 0.39 K/uL (1.20-3.40) L 08/10/24 00:22 [place] # (Auto) 0.37 K/uL (0.11-0.59) 08/10/24 00:22 Eos # (Auto) 0.05 K/uL (0.00-0.50) 08/10/24 00:22 Baso # (Auto) 0.02 K/uL (0.00-0.20) 08/10/24 00:22 Immature Gran # (Auto) 0.02 K/uL (0.01-0.20) 08/10/24 00:22 POC Sodium 135 mmol/L (135-144) 08/10/24 00:25 Sodium 138 mmol/L (136-145) 08/10/24 00:22 POC Potassium 5.4 mmol/L (3.3-5.0) H 08/10/24 00:25 Potassium 5.5 mmol/L (3.5-5.1) H 08/10/24 00:22 POC Chloride 97 mmol/L (101-112) L 08/10/24 00:25 Chloride 94 mmol/L (98-107) L 08/10/24 00:22 Carbon Dioxide 30 mmol/L (21-32) 08/10/24 00:22 POC Total CO2 28 mmol/L (24-31) 08/10/24 00:25 Anion Gap 14 (3-11) H 08/10/24 00:22 POC Anion Gap 16.0 mmol/L (16-25) 08/10/24 00:25 POC BUN 58 mg/dl (7-18) H 08/10/24 00:25 BUN 66 mg/dl (6-23) H 08/10/24 00:22 Creatinine 10.02 mg/dl (0.6-1.2) H* 08/10/24 00: POC Creatinine 11.7 mg/dl (0.6-1.3) H* 08/10/24 00:25 Est Cr Clr Drug Dosing 8.4 ml/min 08/10/24 00:22 eGFR 4.66 08/10/24 00:22 BUN/Creatinine Ratio 6.6 (10-20) L 08/10/24 00:22 Glucose 111 mg/dl (70-99(Fasting)) H 08/10/24 00:22 POC Glucose (other) 108 mg/dl (70-99) H 08/10/24 00:25 Calcium 9.6 mg/dl (8.6-10.3) 08/10/24 00:22 POC Ioniz Calcium Shadia 1.06 mmol/l (1.12-1.32) L 08/10/24 00:25 Total Bilirubin 0.7 mg/dl (0.2-1.0) 08/10/24 00:22 AST 13 U/L (13-39) 08/10/24 00:22 ALT 11 U/L (7-52) 08/10/24 00:22 Alkaline Phosphatase 100 U/L (34-104) 08/10/24 00:22 Total Protein 6.3 gm/dl (6.0-8.3) 08/10/24 00:22 Albumin 4.1 gm/dl (3.4-5.0) 08/10/24 00:22 Globulin 2.2 gm/dl (2.5-4.0) L 08/10/24 00:22 Albumin/Globulin Ratio 1.9 (0.9-2) 08/10/24 00:22 Lipase 17 U/L (11-82) 08/10/24 00:22 Impressions Abdomen/Pelvis CT 08/10/24 00:09 EXAM: CT abd pelvis IV con only CLINICAL HISTORY: PAIN AT RLQ, EVAL FOR APPY, 93 ML OPTIRAY 320 TECHNIQUE: Multiple contiguous axial images were obtained from the level of diaphragm to the pubis symphysis. This study was acquired after the IV administration of iodinated contrast material, given the patient's indications for the examination. If IV contrast material had not been administered, the likelihood of detecting abnormalities relevant to the patient's condition would have been substantially decreased. Coronal and sagittal reformatted images were generated and reviewed to improve anatomic localization and optimize lesion detection. CT scan was performed according to ALARA (as low as reasonably achievable). COMPARISON: 26 August 2018. FINDINGS: Moderate cardiomegaly is noted. This has progressed compared to the previous study. Dense mitral valve calcifications are noted. This is a new finding. Mild pericardial effusion is noted. Previous study also showed mild pericardial effusion. Mild bilateral pleural effusion is noted. Previous study also showed mild pleural effusion. ABDOMEN/PELVIS: Hepatomegaly measuring 18.7 cm in craniocaudal extent. Small focal hyperenhancing lesion is noted involving the segment IV of the liver, possibility of focal hepatic hot spot sign. There is no intra or extrahepatic biliary ductal dilatation. Hepatic vasculature is patent. Gallbladder is not visualized, cholecystectomy status. The spleen is unremarkable. The pancreas is unremarkable. Both adrenal glands are unremarkable. Unchanged changes of bilateral chronic renal parenchymal disease in the form of significant atrophy of both the kidneys is noted. The ureters are normal in caliber and no ureteral calculi are seen. The bladder is normal in contour. No evidence of focal or diffuse bowel wall thickening or evidence of bowel obstruction is seen. Relatively unchanged multiple colonic diverticulae are noted. No signs of acute diverticulitis. Stable calcified lesion is noted in the right iliac fossa region. Possibility of calcified pseudoaneurysm. No adenopathy or fluid collections are seen. The aorta is normal in caliber. Atherosclerotic calcifications are noted involving aorta and its branches. These have increased as compared to the previous study. No aggressive appearing osseous lesions are identified. Fracture of the left superior and inferior pubic rami is noted with possible callus formation. Suspicious expansile lytic lesion are noted in these areas, possibility of Brown's tumor needs consideration. Multiple collateral vessels are noted in the subcutaneous plane of the anterior abdominal wall, within the rectus sheath and also within the peritoneal cavity extending up to the visualized portion of the anterior chest wall. IMPRESSION: 1. Moderate cardiomegaly is noted. This has progressed compared to the previous study. Dense mitral valve calcifications are noted. This is a new finding. 2. Mild pericardial effusion is noted. Previous study also showed mild pericardial effusion. 3. Mild bilateral pleural effusion is noted. Previous study also showed mild pleural effusion. 4. Small focal hyperenhancing lesion is noted involving the segment IV of the liver, possibility of focal hepatic hot spot sign. 5. Multiple collateral vessels are noted in the subcutaneous plane of the anterior abdominal wall, within the rectus sheath and also within the peritoneal cavity extending up to the visualized portion of the anterior chest wall. Possibility of superior vena cava obstruction needs consideration. Dedicated imaging of the chest with contrast is suggested for better evaluation. 6. Changes of chronic renal parenchymal disease in the form of significant parenchymal atrophy of both the kidneys. Unchanged compared to the previous study. 7. Hepatomegaly measuring 18.7 cm. 8. Expansile lytic lesion involving the superior and inferior pubic ramus on the left side with associated pathological fracture/callus formation. In the given imaging background of chronic renal parenchymal disease, possibility of Brown's tumor with pathological fracture needs consideration. This is a new finding. 9. Atherosclerotic calcifications are noted involving aorta and its branches. These have increased as compared to the previous study. 10. Uncomplicated colonic diverticulosis. 11. No ascites is noted in the current study. Previous study showed mild ascites. 12. Relatively unchanged calcified lesion is noted along the right external iliac vessels, possible calcified pseudoaneurysm. 13. Previously seen abdominal wall fat stranding has significantly reduced in the current study. 14. Appendix is normal. Electronically signed by Mj Downs 08-10-2024 03:37 AM Diagnostic Findings
[2024-08-10] MEDS ORDERED: hydrOXYzine HCl 25 MG TAB PO PRN (05:15)
[2024-08-10] MEDS ORDERED: BENZONATATE 100 MG CAPSULE PO PRN (05:15)
[2024-08-10] MEDS ORDERED: GLUCAGON FOR INJ 1 MG VIAL SQ PRN (05:27)
[2024-08-10] MEDS ORDERED: CARBOHYDRATES FOR HYPOGLYCEMIA PO PRN (05:27)
[2024-08-10] MEDS ORDERED: GLUCOSE 40% GEL 15 GM TUBE PO PRN (05:27)
[2024-08-10] MEDS ORDERED: DEXTROSE 50% 50 ML SYRINGE IV PRN (05:27)
[2024-08-10] MEDS ORDERED: GLUCOSE 10 TAB/TUBE PO PRN (05:27)
[2024-08-10 06:41] LABS: Magnesium 2.3 mg/dl (1.7-2.4); Potassium 4.6 mmol/L (3.5-5.1)
--- NOTE | 2024-08-10 07:03 | CT Scan Report ---
EXAM: CT chest diagnostic w con CLINICAL HISTORY: poss svc obstruction on ct abd, 93 ml optiray 320 TECHNIQUE: Contiguous axial images were obtained from the neck base through the upper abdomen following intravenous administration of contrast material. If IV contrast material had not been administered, the likelihood of detecting abnormalities relevant to the patient's condition would have been substantially decreased. In addition, sagittal and coronal reconstructions were performed. CT scan was performed according to ALARA (as low as reasonable achievable). COMPARISON: None. FINDINGS: Patchy ground-glass densities with focal pulmonary interstitial thickening are seen in the apical segments of both upper lobes. Few tiny soft tissue nodules are seen in the apical segment of right upper lobe. The lungs are otherwise clear, with no focal areas of consolidation. The central airways are patent. Bilateral mild pleural effusion is seen with compression subsegmental basal atelectasis in both lower lobes. No pneumothorax is seen. Few subcentimetric mediastinal lymph nodes are seen, which are favoured to be reactive. No significant enlarged axillary, hilar, or mediastinal adenopathy is identified. Venous grafts are seen appropriate positioned in the distal left brachiocephalic vein and at the junction of right distal cephalic vein and subclavian vein. Both the grafts are patent and show normal contrast opacification. No evidence of graft breakage or migration. Bilateral subclavian, axillary and cephalic veins are dilated. Multiple dilated and tortuous venous collaterals are seen along bilateral anterolateral chest wall. The visualized thyroid is unremarkable. The heart, aorta, and pulmonary arteries are of normal size and configuration. Atherosclerotic calcific plaques are seen along the aorta, major vessels and coronary arteries. No pericardial effusion is identified. Imaged portions of the upper abdomen are unremarkable. No aggressive appearing osseous lesions are identified. IMPRESSION: 1. Patchy ground-glass densities with focal pulmonary interstitial thickening in the apical segments of both upper lobes - possibly changes of pulmonary edema. Clinical correlation is recommended. 2. Few tiny soft tissue nodules in the apical segment of right upper lobe - likely non-specific. 3. Bilateral mild pleural effusion with compression subsegmental basal atelectasis in both lower lobes. 4. Patent venous grafts in the distal left brachiocephalic vein and at the junction of right distal cephalic vein and subclavian vein. No evidence of graft breakage or migration. 5. Dilated bilateral subclavian, axillary and cephalic veins as well as multiple dilated and tortuous venous collaterals along bilateral anterolateral chest wall - are favoured to be secondary to graft insertion or prior venous obstruction. Electronically signed by Mj Downs 08-10-2024 07:03 AM
[2024-08-10] MEDS: ACETAMINOPHEN 1,000 MG/100 ML VIAL IV STA (07:07)
[2024-08-10] MEDS: INSULIN ASPART PER UNIT CHARGE SC SCH (07:14)
[2024-08-10] MEDS: CYCLOBENZAPRINE HCL 5 MG TAB PO SCH (07:41)
[2024-08-10] MEDS: traMADol HCL 50 MG TABLET PO STA (07:41)
[2024-08-10] MEDS: LORazepam 0.5 MG TAB PO PRN (09:42)
[2024-08-10] MEDS: MoRPHine SULFATE 2 MG/ML CARP IV STA (09:42)
[2024-08-10] MEDS: EPOETIN ALFA 20,000 UNITS/ML VIAL IV STA (11:52)
--- NOTE | 2024-08-10 13:45 | Nephrology Consultation ---
Date of Consultation August 10, 2024 Assessment & Plan (1) ESRD on dialysis: She does not make urine and has end-stage renal disease on dialysis following failed kidney transplant for FSGS. however she is not compliant with her dialysis and either misses dialysis or shortens regularly. this makes her dialysis management very difficult and she frequently runs into problem with high potassium and has chronic fluid overload. during dialysis earlier today she only stayed for 2 hours. if patient ag reeable will do dialysis again tomorrow. She is chronically under dialyzed and has chronic volume overload. it is very hard to explain to the patient the ramifications of this noncompliance but she does not seem interested. this is not a new feature and we have been struggling with this for the last 5- 6 years. (2) Abdominal pain, right lower quadrant: Unclear etiology. However on the CT scan there is nothing concerning that was noted History of Present Illness Reason for Consultation: dialysis management Attending Physician: Walker Tom MD History of Present Illness 38-year-old female with end-stage renal disease on chronic hemodialysis Saturday but she is usually noncompliant with dialysis. other medical problems includes chronic systolic heart failure (EF 45%, TTE 2023), CAD status post recent stent, valvular heart disease (mild MR/MS), hypertension, history of FSGS status post failed renal transplantation, DM2 diet controlled, anxiety/mood disorder, colonic polyps/diverticulosis, RLS, chronic anemia (baseline hemoglobin of 8-9), history of migraine, medical noncompliance, ongoing tobacco abuse. Multiple [facility] admissions and ER visits since 2016. Recent overnight confinement July 30 to 2023 for chest pain attributed to volume overload. Recent ER visit 3 days ago for achy right-sided abdominal pain without other symptoms. that day she was discharged home. At home, patient had worsening discomfort associated with Nausea but without emesis.No diarrhea. No headache, no chest pain, no SOB. her admission labs were significant for a creatinine of 11.7 and a potassium of 5.4. CT chest abdomen and pelvis showed evidence of fluid overload but otherwise unremarkable She missed her dialysis on Saturday and her last dialysis was on Saturday 5 days ago. she has a good working AV fistula. she had dialysis earlier today but only stayed for 2 hours and then dialysis was stopped review of systems as detailed in HPI unless stated otherwise 12 systems reviewed and negative Physical Exam Physical Exam: GENERAL: Comfortable, obese, chronically ill appearing. no res piratory distress NECK : Supple, short neck, no tenderness CHEST : Decreased breath sounds, no tenderness HEART : RRR, no obvious murmurs ABDOMEN: Some distention, minimal RLQ tenderness EXTREMITIES : Minimal LE swelling, no LE tenderness, right upper extremity AV fistula NEUROLOGIC : Coherent, no facial asymmetry, no other gross focality Allergies Allergy/AdvReac Type Severity Reaction Status Date / Time cefaclor Allergy Intermediate Rash Verified 08/10/24 00:08 Cephalosporins Allergy Intermediate Rash Verified 08/10/24 00:08 amoxicillin AdvReac Intermediate VOMITING Verified 08/10/24 00:08 clavulanic acid AdvReac Intermediate VOMITING Verified 08/10/24 00:08 Home Medications Medication Instructions Recorded Confirmed Type carbamazepine 200 mg tablet 200 mg PO AMPM 06/08/23 08/10/24 History hydroxyzine HCl 25 mg tablet 25 mg PO Q6H PRN Anxiety 06/08/23 08/10/24 History lorazepam 0.5 mg tablet 0.5 mg PO Q8H PRN Anxiety 06/08/23 08/10/24 History vitamin B complex-vitamin C-folic 1 tab PO QAM 06/08/23 08/10/24 History acid 0.8 mg tablet (Renal-Rika) benzonatate 100 mg capsule 200 mg PO TID PRN Cough 08/29/23 08/10/24 History calcium acetate(phosphat bind) 667 2,001 mg PO UD 08/29/23 08/10/24 History mg capsule medroxyprogesterone 150 mg/mL 150 mg IM .EVERY 3 MONTHS 08/29/23 08/10/24 History intramuscular suspension (Depo-Provera) lidocaine 5 % topical ointment 1 applic topical QID PRN pain #30 04/11/24 08/10/24 Rx grams bupropion HCl 150 mg 24 hr tablet, 150 mg PO QAM 04/17/24 08/10/24 History extended release mirtazapine 7.5 mg tablet 7.5 mg PO HS 04/17/24 08/10/24 History aspirin 81 mg tablet,delayed 81 mg PO QAM #30 tabs 05/09/24 08/10/24 Rx release clopidogrel 75 mg tablet 75 mg PO QAM #30 tabs 05/09/24 08/10/24 Rx amlodipine 2.5 mg tablet 2.5 mg PO QAM 07/24/24 08/10/24 History atorvastatin 40 mg tablet 40 mg PO QPM 07/24/24 08/10/24 History metoprolol succinate 50 mg 50 mg PO BID 07/24/24 08/10/24 History tablet,extended release 24 hr varenicline 1 mg tablet 1 mg PO BID 07/24/24 08/10/24 History cyclobenzaprine 5 mg tablet 5 mg PO Q8H #30 tabs 08/01/24 08/10/24 Rx Patient History Medical History HTN (hypertension) Ischemic cardiomyopathy Status post insertion of drug-eluting stent into left anterior descending (LAD) artery Coronary artery disease ESRD (end stage renal disease) on dialysis Substernal chest pain Atypical chest pain Anemia Atypical chest pain CHF (congestive heart failure) Depression with anxiety DM2 (diabetes mellitus, type 2) Mood disorder Anxiety disorder, unspecified Abnormal chest xray Elevated lactic acid level Transaminitis Pneumonia Metabolic encephalopathy Acute non-ST elevation myocardial infarction (NSTEMI) Pulmonary edema Acute hyperkalemia Acute alteration in mental status Renal failure (ARF), acute on chronic Encephalopathy Facial fracture GI bleed ESRD (end stage renal disease) on dialysis Symptomatic anemia Tobacco abuse DVT prophylaxis Fistula right arm (currently being used) and left arm Dialysis patient SATURDAY/SAT/SATURDAY AT [facility] GERD (gastroesophageal reflux disease) Bipolar disorder Restless leg syndrome Peripheral neuropathy Asthma rare res inh use History of abnormal cervical Papanicolaou smear Elevated troponin Acute electrocardiogram changes Surgical History S/P right coronary artery (RCA) stent placement History of heart artery stent H/O eye surgery LASER SURGERY LEFT History of surgery left arm d/t clot in arm from AV fistula use @ [facility] History of surgery (~09/09/20) perm cath > since removed History of colonoscopy Kidney transplant recipient 2013 AT [facility] History of tooth extraction three TOOTH History of cardiac cath 2016 NO STENTS AVF (arteriovenous fistula) bilat upper arms ---currently using right for dialysis Family History Grandmother Hx of CABG Mother Diabetes Father Crohn's disease Grandfather (Maternal) Diabetes Uncle Diabetes Grandmother (Maternal) Family history of reaction to anesthesia difficulty waking with colonoscopy Social History Smoking Status: Former smoker Tobacco Type: Cigarettes Cigarettes Per Day: 20; Second Hand Exposure: No; Do You Dip or Chew Tobacco: No; Tobacco Cessation Education Requested by Patient: No Hx Alcohol Use: No Hx Substance Use: No Preferred Language: Macedonian Communication Ability: Effective 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 Beliefs That Will Affect Care: None marital status: Single Current Living Situation: Family Current Living Situation Comment: with grandparents How many Children do You have: 3 Other Information That Helps Us Care for You: No Feels Safe at Home: Yes Safety Concerns: Feels Safe At This Time Assistive Devices: None Results & Data Vital Signs (Past 12 Hours) Vital Signs Temp Pulse Pulse Resp BP BP Pulse Ox 08/10/24 07:40 101 H 08/10/24 07:06 36.3 C L 98 H 18 142/84 H 96 08/10/24 06:19 36.2 C L 100 H 20 148/87 H 98 08/10/24 05:15 36.2 C L 20 148/87 H 98 08/10/24 05:03 99 H 20 142/63 H 99 08/10/24 03:01 101 H 21 104/75 98 08/10/24 02:00 99 H 18 124/74 96 08/10/24 02:00 102 H 22 124/74 97 O2 Del Method 08/10/24 07:40 08/10/24 07:06 Room Air 08/10/24 06:19 Room Air 08/10/24 05:15 Room Air 08/10/24 05:03 Room Air 08/10/24 03:01 08/10/24 02:00 08/10/24 02:00 Laboratory Results CBC renal panel reviewed Diagnostic Findings chest x-ray CT chest abdomen and pelvis reviewed
[2024-08-10] MEDS: HEPARIN SOD (PORCINE) 1000 UNIT/ML IV ONE (14:19)
[2024-08-10] MEDS: HEPARIN SOD (PORCINE) 1000 UNIT/ML IV SCH (14:19)
[2024-08-10] MEDS: CALCIUM ACETATE 667 MG CAP/TAB PO SCH (14:47)
[2024-08-10] MEDS: METOPROLOL SUCC 50MG EXT REL TAB PO SCH (14:48)
[2024-08-10] MEDS: amLODIPine BESYLATE 5 MG TAB PO SCH (14:48)
[2024-08-10] MEDS: ASPIRIN 81 MG ECTAB PO SCH (14:49)
[2024-08-10] MEDS: NEPHROCAPS PO SCH (14:49)
[2024-08-10] MEDS: buPROPion XL 150 MG TABCR PO SCH (14:49)
--- NOTE | 2024-08-10 16:37 | Discharge Summary ---
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 Patient will be given 10 tablets of Percocet and otherwise will be stable for discharge. She did have some bilateral pleural effusion and very minimal pericardial effusion, she underwent 4-1/2 hours of hemodialysis today with volume removal, after the hemodialysis she appears slightly weak but arousable and understood context of our discussion. Updated Medication List Medication Instructions Recorded Confirmed Type carbamazepine 200 mg tablet 200 mg PO AMPM 06/08/23 08/10/24 History hydroxyzine HCl 25 mg tablet 25 mg PO Q6H PRN Anxiety 06/08/23 08/10/24 History lorazepam 0.5 mg tablet 0.5 mg PO Q8H PRN Anxiety 06/08/23 08/10/24 History vitamin B complex-vitamin C-folic 1 tab PO QAM 06/08/23 08/10/24 History acid 0.8 mg tablet (Renal-Rika) benzonatate 100 mg capsule 200 mg PO TID PRN Cough 08/29/23 08/10/24 History calcium acetate(phosphat bind) 667 2,001 mg PO UD 08/29/23 08/10/24 History mg capsule medroxyprogesterone 150 mg/mL 150 mg IM .EVERY 3 MONTHS 08/29/23 08/10/24 History intramuscular suspension (Depo-Provera) lidocaine 5 % topical ointment 1 applic topical QID PRN pain #30 04/11/24 08/10/24 Rx grams bupropion HCl 150 mg 24 hr tablet, 150 mg PO QAM 04/17/24 08/10/24 History extended release mirtazapine 7.5 mg tablet 7.5 mg PO HS 04/17/24 08/10/24 History aspirin 81 mg tablet,delayed 81 mg PO QAM #30 tabs 05/09/24 08/10/24 Rx release clopidogrel 75 mg tablet 75 mg PO QAM #30 tabs 05/09/24 08/10/24 Rx amlodipine 2.5 mg tablet 2.5 mg PO QAM 07/24/24 08/10/24 History atorvastatin 40 mg tablet 40 mg PO QPM 07/24/24 08/10/24 History metoprolol succinate 50 mg 50 mg PO BID 07/24/24 08/10/24 History tablet,extended release 24 hr varenicline 1 mg tablet 1 mg PO BID 07/24/24 08/10/24 History cyclobenzaprine 5 mg tablet 5 mg PO Q8H #30 tabs 08/01/24 08/10/24 Rx Hospital Stay Data Consultations 08/10/24 04:48 ED Decision to Admit Stat 08/10/24 05:27 Consult Nephrology Routine Diagnostic Imagining Performed 08/10/24 00:09 CT abd pelvis IV con only Stat 08/10/24 05:13 CT chest diagnostic w con Stat Pending Results Patient Have Any Pending Studies at Discharge: No Discharge Instructions Given to Patient (Per Discharging Provider) Patient is recommended to remain compliant with hemodialysis Total Time Total Time Spent Total Time Spent (In Minutes): More than 40 minutes
[2024-08-10] MEDS: MIRTAZAPINE TAB 15 MG TAB PO SCH (20:59)
[2024-08-10] MEDS: ATORVASTATIN 40 MG TAB PO SCH (21:00)
[2024-08-10] MEDS ORDERED: MELATONIN 3 MG TAB PO PRN (23:37)
--- NOTE | 2024-08-11 00:41 | XRay Report ---
Exam(s): XR KUB EXAM: XR Abdomen, 1 View CLINICAL HISTORY: Reason for exam: worsening abd pain. TECHNIQUE: Frontal supine view of the abdomen/pelvis. COMPARISON: August 07, 2024 FINDINGS: Gastrointestinal tract: Unremarkable. No dilated bowel loops are identified. Bones/joints: 4.9 cm calcification projecting over the right side of the pelvis, unchanged. Chronic appearing incompletely healed fractures of the left superior and inferior pubic rami, unchanged. Soft tissues: Surgical clips in the right upper quadrant, unchanged. IMPRESSION: No acute findings. Electronically signed by: Rodney Jaramillo MD 08/11/24 00:40 AM
[2024-08-11] MEDS: PROMETHAZINE 12.5 MG/50.5 ML BAG IV PRN (02:50)
[2024-08-11 07:55] VITALS: RESP 18
[2024-08-11] MEDS: oxyCODONE HCL IR 5 MG TAB (IMMEDIATE RELEASE) PO STA (10:05)
--- NOTE | 2024-08-11 10:58 | Nephrology Progress Note ---
Date of Service August 11, 2024 Assessment & Plan Admission and Anticipated Discharge Date Admission Date: August 10, 2024 Subjective Assessment & Plan (1) ESRD on dialysis: She does not make urine and has end-stage renal disease on dialysis following failed kidney transplant for FSGS. however she is not compliant with her dialysis and either misses dialysis or shortens regularly. this makes her dialysis management very difficult and she frequently runs into problem with high potassium and has chronic fluid overload. during dialysis earlier today she only stayed for 2 hours. if patient agreeable will do dialysis again tomorrow. She is chronically under dialyzed and has chronic volume overload. it is very hard to explain to the patient the ramifications of this noncom pliance but she does not seem interested. this is not a new feature and we have been struggling with this for the last 5- 6 years. 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 She is very non adherent with sensipar as well as binders and Also dialysis ( missing and Shortening). it is critical we do all this. No Symptoms related with brown tumor and is not a very big size. Standard of care for this is parathyroidectomy. I discussed this with her again in light of this. She has very poor insight about all her health issues. She freaked out once she heard she needs parathyroidectomy. No surgical indication for the tumor itself given the size and lack of symptoms there. will convey this to Dr Nieves ( regular dental laboratory technician also) but we have talked to her about parathyroidectomy in the past for very high PTH. Time spent 48 mins S--has non specific abd pain. Stayed Dialysis for full 4hrs yesterday. No pain in the left Pubic/Hip area. Physical Exam Physical Exam: GENERAL: Comfortable, obese, chronically ill appearing. no respiratory distress NECK : Supple, short neck, no tenderness CHEST : Decreased breath sounds, no tenderness HEART : RRR, no obvious murmurs ABDOMEN: Some distention, minimal RLQ tenderness EXTREMITIES : Minimal LE swelling, no LE tenderness, right upper extremity AV fistula NEUROLOGIC : Coherent, no facial asymmetry, no other gross focality Results & Data Vital Signs (Past 12 Hours) Vital Signs Temp Pulse Pulse Resp BP Pulse Ox O2 Del Method 08/11/24 07:55 36.4 C L 74 18 117/62 93 Room Air 08/11/24 07:21 76 08/11/24 03:44 36.6 C 76 17 132/83 94 Room Air 08/10/24 23:14 36.3 C L 81 18 126/81 92 Room Air
[2024-08-11 11:07] VITALS: TEMP 97.9; O2SAT 96
[2024-08-11 11:12] VITALS: BP 142/84; PULSE 98
== END 2024-08-11 12:41 | disposition home or self-care (01) | DRG 314 ==
LOC: ED 23:41 → 4W 08-10 04:38

== ENCOUNTER 2024-09-05 15:37 | Inpatient (IN) ==
--- OUTSIDE RECORDS SUMMARY | 2024-09-05 15:44 | External Medical Summary | Summary of Care ---
Author Name Unknown Organization [facility] Address [address] [place] [address] Phone [phone] Care Team Providers Care Special Day Class Teacher Name Role Phone Adolph Aldridge MD Primary Care Provider [phone] Reason for Visit * Reason Onset Date Comments Appointment 08/13/2024 Encounter Details Date Type Department Care Team (Late st Contact Info) Description 08/13/2024 Quantitative Analyst Telephone Care Coordination and Integration [address] [place] [address] Kaitlyn Sandoval, ROSEY [address], [place] [id number] Appointment Allergies Active Allergy Reactions Criticality Noted Date Comments Amoxicillin Low 01/27/2021 Other reaction(s): VOMITING Cefaclor Rash Low 11/23/2011 Cephalosporins Rash Low 05/16/1999 documented as of this encounter (statuses as of 08/20/2024) Medications Calcium Acetate (Phos Binder) 667 MG [...] Tablet 03/14/20 22 Active OneTouch Delica Plus [id number] ons:DM type 2 with diabetic peripheral neuropathy [...] ([facility]) Use to check sugars continuously. E 11.9 change every 10 days 3 Each 01/06/20 24 Active hydrOXYzine HCl 25 MG Oral Tablet TAKE 1 TABLET BY MOUTH EVERY 6 HOURS NEEDED FOR ANXIETY 02/12/20 24 Active Dexcom G7 Mock Up Builder Device USE DAILY TO CHECK BLOOD SUGARS [...] the morning. 30 Tablet 05/23/20 24 Active medroxyPROGESTERo ne Acetate 150 MG/ML Intramuscular Suspension Prefilled Syringe (Depo-Provera) INJECT 150 MG INTRAMUSCULARLY (INTO A LARGE MUSCLE) ONCE EVERY 3 MONTHS 1 mL 06/26/20 24 Active Benzonatate 100 MG Oral CapsuleIndication s:Chronic cough Take 2 Capsules by mouth 3 times a day as needed for Cough. 30 Capsule 1 07/06/20 24 Active Cyclobenzaprine HCl 5 MG Oral Tablet (Flexeril) 08/01/20 24 Active Cyclobenzaprine HCl 5 MG Oral Tablet (Flexeril)Indicat ions:Chronic chest wall pain Take 1 Tablet by mouth 3 times a day as needed for Muscle spasms. 08/04/20 24 Active documented as of this encounter (statuses as of 08/20/2024) Active Problems Problem Noted Date Diagnosed Date Chronic total occlusion of coronary artery 06/09 S/P primary angioplasty with coronary stent 04/27 Bleeding hemorrhoids 05/21/2024 Coronary artery disease involving soboba coronar y artery 05/21/2024 HFrEF (heart failure [...] as of this encounter (statuses as of 08/20/2024) Resolved Problems Problem Noted Date Diagnosed Date [...] and PP sugars <120. Report levels to [facility] department weekly. 10. Advised patient that Glyburide, Metformin, and insulin may be safely used during for the control of blood sugar levels. Alexandra will begin her insulin therapy today. 11. Dietary consult to be done to instruct patient on appropriate nutrition and diet to aid in control of blood sugars. 12. Recommend urine culture each trimester. 13. Recommend [facility] ultrasound for limited anatomy at 12-14 weeks, for full anatomy at 18-20 weeks, and for echocardiography at 22-24 weeks. 14. Start testing with twice weekly NST and weekly MATTHEW beginning at 32 weeks or earlier if any evidence of uncontrolled blood sugars, renal abnormalities, or HTN. 15. Recommend [facility] growth ultrasound every 4 weeks after [...] Marva CURRIE, contaminated patient to repepat OB [facility] 03/19/2011 01/29/20 17 Overview (08/09/2011): 03/19/2011 Needs enrolled in [facility] once MA [...] Obesity Taxonomy STRAIN OF LEFT KNEE WITH LAEXANDRA PECTED MILD DISLOCATION OF PATELLA 04/14/2002 04/18/2011 PATELLA-FEMORAL DYSFUNCTION 04/14/2002 04/18/2011 FX PHALANX, HAND NOS-CL 12/17/200003/27 HTN, goal below 140/90 04/21 documented as of this encounter (statuses as of 08/20/2024) Immunizations Name Administration Dates Next Due COVID-19 [...] TDAP, Age 7 and older, IM (Adacel) 08/04/2024, documented as of this encounter Social History [...] encounter Miscellaneous Notes * Telephone Encounter - Kayy Reed OSA - 08/20/2024 5:20 PM EST LMOM. Letter sent. 08/20/2024 * Telephone Encounter - Kayy Reed OSA - 08/13/2024 10:45 AM EST LMOM. 08/13/2024 * Telephone Encounter - Kaitlyn Sandoval RN - 08/13/2024 10:39 AM EST Patient was recently admitted to [facility] from 08/10/2024 to 08/11/2024 and is in need of a 3-5 day hospital discharge follow up given her complexity and frequent hospitalizations. Front office staff, please contact patient to schedule a hospital discharge follow up appointment. Thanks, Kaitlyn Sandoval RN, BSN Float Quantitative Analyst [phone] documented in this encounter Plan of Treatment Upcoming Encounters Date Type Department Care Team (Late st Contact Info) Description 08/25/2024 9:30 AM EST Scheduled Telephone Care Coordination and Integration [address] [place] [address] Marlen Tatum, Community Health Oxygen Plant Operator [address] [place] [address] 10/06/2024 1:40 PM EST Office Visit [facility] [address] [facility] [place] [phone] Adolph Aldridge MD [address] [facility] [place] [address] 04/01/2025 2:40 PM EDT Telemedicine Neurology [address] [place] [address] Eros Marks DO [address] [place] [address] Scheduled Procedures Name Priority Associated Diagnoses Date/Ti me COLONOSCOPY FLEXIBLE PROXIMA L DIAGNOSTIC Recall Iron deficiency anemia, unspecified iron deficiency anemia type Rectal bleeding Health Maintenance Due Date Last Done Comments HPV/Co-Test 11/14/2015 COVID-19 Vaccine (3 - Moderna risk series) 01/11/2021 12/14/2020, 11/16/2020 Pap Smear 05/12/2023 05/12/2020, 01/0 04/2018, 09/25/2013, Additional history exists Influenza Vaccine (FLU shot) (#1) 2024 05/26/2023, 06/29/2022, 06/14/2021, Additional history exists HbA1c 12/09/2024 06/10/2024, 04/27, 08/30/2023, Additional history exists Diabetic Eye Exam 04/02/2025 04/02/2024, , 05/15/2016, Additional history exists Depression Monitoring 05/11/2025 05/11/2024 Cervical Cancer Screening 08/04/2025 Po stponed from 05/12/2023 (Patient Declined After Education) Diabetic Foot Exam 08/04/2025 08/04/2024, 0 03/10/2021, 03/10/2020, Additional history exists Colonoscopy 2030 05/22/2024, 04/27, 03/29/2023, Additional history exists DTap/Tdap Vaccines (8 - Td or Tdap) 08/04/2034 08/04/2024, 10/09/2011, 08/12/2002, Additional history exists Pneumococcal Vaccine: Pediatrics (0 to 5 Years) and At-Risk Patients (6 to 18 Years and 19+ Years) (4 of 4 - PCV20 or PCV21) 11/14/2035 03/10/2020, 03/26/2017, 12/05/2006 Hepatitis B Vaccine Completed [...] this encounter Medical Devices Implanted Type Area Municipal [address] Magistrate Device Identifier Shelf Expiration Date Model / Serial / Lot Stent Protege Gps [id number] - [id number] Implanted:Qty : 1 on 09/29/2020 [place] [facility] [facility] [place] Chest [employer] : VASCULAR [id number] 09/20/2022 [id number] / / [id number] Stent Viab [id number] - [id number] Implanted:Qty : 1 on 04/16/2023 by Carmelo Ramos MD [place] [facility] [place] Right: Subclavian [employer] [id number] 01/26/2026 [id number] / [id number] / [id number] Stent Synergy Xd Mr [id number] - [id number] Implanted:Qty : 1 on 06/09/2024 by Diamond Mcgowan MD at [place] [facility] [place] [employer] [id number] 01/21/2026 [id number] / / [id number] documented as of this encounter Advance Directives [...] Advance Directives occurred with: Patient Care Teams Special Day Class Teacher Relationship Specialty Start Date End Date Adolph Aldridge MD PCP - General Family Medicine 10/21/18 documented as of this encounter
--- OUTSIDE RECORDS SUMMARY | 2024-09-05 15:44 | External Medical Summary | Summary of Care ---
Author Name Unknown Organization [facility] Address [address] [place] [address] Phone [phone] Care Team Providers Care Category Manager Name Role Phone Adolph Aldridge MD Primary Care Provider Encounter Details Date Type Department Care Team (Late st Contact Info) Description 08/18/2024 10:45 AM EST Scheduled Telephone Care Coordination and Integration [address] [place] [address] Marlen Tatum, Community Health Administration 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 [address], [place] [id number] Allergies Active Allergy Reactions Criticality Noted Date Comments Amoxicillin Low 01/27/2021 Other reaction(s): VOMITING Cefaclor Rash Low 11/23/2011 Cephalosporins Rash Low 05/16/1999 documented as of this encounter (statuses as of 08/18/2024) Medications Calcium Acetate (Phos Binder) 667 MG [...] Tablet 03/14/20 22 Active OneTouch Delica Plus [id number] ons:DM type 2 with diabetic peripheral neuropathy [...] A1c goal of less than 7.0% ([facility]) Use to check sugars continuously. E 11.9 change every 10 days 3 Each 01/06/20 24 Active hydrOXYzine HCl 25 MG Oral Tablet TAKE 1 TABLET BY MOUTH EVERY 6 HOURS NEEDED FOR ANXIETY 02/12/20 24 Active Dexcom G7 Jingle Writer Device USE DAILY TO CHECK BLOOD [...] morning. 30 Tablet 5 05/23/20 24 Active medroxyPROGESTERo ne Acetate 150 [...] HCl 5 MG Oral Tablet (Flexeril) 08/01/20 Active Cyclobenzaprine HCl 5 MG Oral Tablet (Flexeril)Indicat ions:Chronic chest wall pain Take 1 Tablet by mouth 3 times a day as needed for Muscle spasms. 08/04/20 Active documented as of this encounter (statuses as of 08/18/2024) Active Problems Problem Noted Date Diagnosed Date Chronic total occlusion of coronary artery 06/09 S/P primary angioplasty with coronary stent 04/27 Bleeding hemorrhoids 05/21/2024 Coronary artery disease involving [place] coronar y artery 05/21/2024 HFrEF (heart failure [...] as of this encounter (statuses as of 08/18/2024) Resolved Problems Problem Noted Date Diagnosed Date [...] and PP sugars <120. Report levels to [facility] department weekly. 10. Advised patient that Glyburide, Metformin, and insulin may be safely used during for the control of blood sugar levels. Alexandra will begin her insulin therapy today. 11. Dietary consult to be done to instruct patient on appropriate nutrition and diet to aid in control of blood sugars. 12. Recommend urine culture each trimester. 13. Recommend [facility] ultrasound for limited anatomy at 12-14 weeks, for full anatomy at 18-20 weeks, and for echocardiography at 22-24 weeks. 14. Start testing with twice weekly NST and weekly MATTHEW beginning at 32 weeks or earlier if any evidence of uncontrolled blood sugars, renal abnormalities, or HTN. 15. Recommend [facility] growth ultrasound every 4 weeks after [...] 17 Overview (08/09/2011): 03/19/2011 Needs enrolled in [facility] once MA active. Marva RN- [...] as of this encounter (statuses as of 08/18/2024) Immunizations Name Administration Dates Next Due COVID-19 [...] in this encounter Progress Notes * Marlen Tatum, Community Health Administration 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 - 08/18/2024 11:37 AM EST Telemedicine visit: No Community Health Administration 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 (JAYY) documentation: CHW outbound call per [facility] Left detailed message for patient to call CHW / furnished phone number Marlen Tatum [facility] Community Health Worker Call or Text- [phone] documented in this encounter Plan of Treatment Upcoming Encounters Date Type Department Care Team (Late st Contact Info) Description 08/20/2024 2:30 PM EST Office Visit Cardiology, [address] [place] [address] Kaitlyn Mg PA-C [address] [facility] [place] [address] 08/25/2024 9:30 AM EST Scheduled Telephone Care Coordination and Integration [address] [place] [address] Marlen Tatum, Community Health Administration 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 [address] [place] [address] 10/06/2024 1:40 PM EST Office [facility] [address] [place] [address] Adolph Aldridge MD [address] [place] [address] 04/01/2025 2:40 PM EDT Telemedicine Neurology [address] [place] [address] Eros Marks DO [address] [place], [place] [phone] Scheduled Procedures Name Priority Associated Diagnoses Date/Ti [...] to 64 Years) (4 of 4 - PCV20 or [...] this encounter Medical Devices Implanted Type Area Community Recreation Coordinator Device Identifier Shelf Expiration Date Model / Serial / Lot Stent Protege Gps [id number] - [id number] Implanted:Qty : 1 on 09/29/2020 by Carmelo Ramos MD [place] [facility] [place] Left: Chest [employer] : VASCULAR [id number] 09/20/2022 [id number] -40-80 / / [id number] Stent Viab [id number] - [id number] Implanted:Qty : 1 on 04/16/2023 by Carmelo Ramos MD at [place] [facility] [place] Right: Subclavian [employer] [id number] 01/26/2026 [id number] / [id number] / [id number] Stent Synergy Xd Mr 2.83w27nj - [id number] Implanted:Qty : 1 on 06/09/2024 by Diamond Mcgowan MD at CARDIAC LAB[place] [facility] [place] [employer] [id number] 01/21/2026 [id number] / / [id number] documented as of this encounter Advance Directives [...] Advance Directives occurred with: Patient Care Teams Category Manager Relationship Specialty Start Date End Date Adolph Aldridge MD PCP - General Family Medicine 10/21/18 documented as of this encounter
--- OUTSIDE RECORDS SUMMARY | 2024-09-05 15:44 | External Medical Summary | Summary of Care ---
Author Name Unknown Organization [facility] Address [address] [place] [address] Phone [phone] Care Team Providers Care System Dispatcher Name Role Phone Adolph Aldridge MD Primary Care Provider [phone] Encounter Details Date Type Department Care Team (Late st Contact Info) Description 08/25/2024 9:30 AM EST Scheduled Telephone Care Coordination and Integration [address] [place] [address] Marlen Tatum, Community Health Pile Header [address] [place], [place] [phone] Allergies Active Allergy Reactions Criticality Noted Date Comments Amoxicillin Low 01/27/2021 Other reaction(s): VOMITING Cefaclor Rash Low 11/23/2011 Cephalosporins Rash Low 05/16/1999 documented as of this encounter (statuses as of 08/25/2024) Medications Calcium Acetate (Phos Binder) 667 MG [...] Tablet 03/14/20 22 Active OneTouch Delica Plus [id number] ons:DM type 2 with diabetic peripheral neuropathy [...] of less than 7.0% ([facility]) Use to check sugars continuously. E 11.9 change every 10 days 3 Each 01/06/20 24 Active hydrOXYzine HCl 25 MG Oral Tablet TAKE 1 TABLET BY MOUTH EVERY 6 HOURS NEEDED FOR ANXIETY 02/12/20 24 Active Dexcom G7 Licensing Registration Examiner Device USE DAILY TO CHECK BLOOD SUGARS [...] as of this encounter (statuses as of 08/25/2024) Active Problems Problem Noted Date Diagnosed Date Chronic total occlusion of coronary artery 06/09 S/P primary angioplasty with coronary stent 04/27 Bleeding hemorrhoids 05/21/2024 Coronary artery disease involving [place] coronar y artery 05/21/2024 HFrEF (heart failure [...] as of this encounter (statuses as of 08/25/2024) Resolved Problems Problem Noted Date Diagnosed Date [...] PP sugars <120. Report levels to [facility] department weekly. 10. Advised patient that Glyburide, Metformin, and insulin may be safely used during for the control of blood sugar levels. Alexandra will begin her insulin therapy today. 11. Dietary consult to be done to instruct patient on appropriate nutrition and diet to aid in control of blood sugars. 12. Recommend urine culture each trimester. 13. Recommend [facility] ultrasound for limited anatomy at 12-14 weeks, for full anatomy at 18-20 weeks, and for echocardiography at 22-24 weeks. 14. Start testing with twice weekly NST and weekly MATTHEW beginning at 32 weeks or earlier if any evidence of uncontrolled blood sugars, renal abnormalities, or HTN. 15. Recommend [facility] growth ultrasound every 4 weeks after 24 [...] 17 Overview (08/09/2011): 03/19/2011 Needs enrolled in [facility] once MA active. Marva RN- Enrolled [...] as of this encounter (statuses as of 08/25/2024) Immunizations Name Administration Dates Next Due COVID-19 [...] Progress Notes * Marlen Tatum, Community Health Pile Header - 08/25/2024 11:40 AM EST Telemedicine visit: No Community Health Pile Header (JAYY) documentation: [facility]W outbound call per [place] [facility] Left message and supplied CHW phone number Marlen Tatum [facility] Community Health Worker Call or Text- [phone] documented in this encounter Plan of Treatment Upcoming Encounters Date Type Department Care Team (Late st Contact Info) Description 10/06/2024 1:40 PM EST Office [place] [address] [place] [address] Adolph Aldridge MD [address] [place] [address] 04/01/2025 2:40 PM EDT Telemedicine Neurology [address] [place] [address] Eros Marks Natalie, DO [address] [place] [address] Scheduled Procedures Name Priority Associated Diagnoses Date/Ti me COLONOSCOPY FLEXIBLE PROXIMA L DIAGNOSTIC Recall Iron deficiency anemia, unspecified iron deficiency anemia type Rectal bleeding Health Maintenance Due Date Last Done Comments HPV/Co-Test 11/14/2015 COVID-19 Vaccine (3 - Moderna risk series) 01/11/2021 12/14/2020, 11/16/2020 Pap Smear 05/12/2023 05/12/2020, 04/2018, 09/25/2013, Additional [...] this encounter Medical Devices Implanted Type Area Title Coordinator Device Identifier Shelf Expiration Date Model / Serial / Lot Stent Protege Gps [id number] - [id number] Implanted:Qty : 1 on 09/29/2020 by Carmelo Ramos MD at [place] [facility] [place] Left: Chest [employer] : VASCULAR [id number] 09/20/2022 [id number] -40-80 / / [id number] Stent Viab [id number] - [id number] Implanted:Qty : 1 on 04/16/2023 by Carmelo Ramos MD at [place] [facility] [place] Right: Subclavian [employer] [id number] 01/26/2026 [id number] / [id number] / [id number] Stent Synergy Xd Mr 2.41n99sn - [id number] Implanted:Qty : 1 on 06/09/2024 by Diamond Mcgowan MD at CARDIAC LAB[facility] [place] [employer] [id number] 01/21/2026 [id number] / / [id number] documented as of this encounter Advance Directives [...] Advance Directives occurred with: Patient Care Teams System Dispatcher Relationship Specialty Start Date End Date Adolph Aldridge MD PCP - General Family Medicine 10/21/18 documented as of this encounter
--- NOTE | 2024-09-05 16:09 | Emergency Department Note ---
Impression & Plan Generalized weakness, ESRD on dialysis ED Provider Note HISTORY OF PRESENT ILLNESS: Patient is a 38-year-old female presenting with "feeling horrible." Patient states she started feeling unwell 6 days ago that has progressively worsened. She is an ESRD patient and receives Saturday/Saturday/Saturday dialysis. She states that she missed her last 2 sessions secondary to feeling unwell. She reports that she missed her session yesterday because "I just slept through it." No reported fevers. Denies any abdominal pain. Reports "pain all over." Reports nausea but denies any vomiting. Reports diarrhea today. Denies any recent sick contact exposures. ROS: as above PHYSICAL EXAM: Constitutional: Patient appears in no acute distress. HENT: Head: Normocephalic and atraumatic. Eyes: EOMI, PERRL Mouth/Throat: Mucous membranes moist. Neck: Trachea midline. Neck supple. Cardiovascular: RRR, No murmurs, rubs or gallops. Intact distal pulses. Pulmonary/Chest: No respiratory distress. Breath sounds clear and equal bilaterally. No wheezes or rales. Abdominal: Abdomen soft, no tenderness, rebound or guarding. Musculoskeletal: No edema, tenderness or deformity noted. Skin: Warm and dry. No rash, erythema, pallor or cyanosis Psychiatric: Appropriate mood and affect for situation. Neurological: Alert and keenly responsive. CN II-XII grossly intact, moving all extremities equally and fully. MDM: - Vitals signs showed tachycardia. - History obtained via patient. History as above. - Chronic conditions affecting care: ESRD on HD; HTN; CAD (s/p PCI) - Differential diagnoses include, but are not limited to: viral syndrome; electrolyte abnormality; ACS; pneumonia - Order placed for continuous cardiac monitoring. At this time, monitor showed rate of 89 bpm with normal sinus rhythm, per my interpretation. - External medical records reviewed. Discharge summary dated 08/10/2024 was reviewed. Patient was admitted to the hospital for pericardial effusion. - EKG interpreted by myself showed normal sinus rhythm. Rate 92 bpm. QT 396. No acute ischemic changes. No significant peaked T waves to suggest hyperkalemia. - Laboratory workup interpreted by myself showed pancytopenia (WBC 2.25; Hgb 9.6; plt 97); normal PT/INR; ESRD; normal potassium; elevated troponin (84.9); elevated BNP (2045) - Viral respiratory panel negative. - CXR negative for pneumonia, per my interpretation. - Discussion was had with nurse outreach case manager about patient's case and need for admission - Hospitalist consulted for admission - Patient admitted to [facility]ist service for further evaluation and management. 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 Pericardial effusion Abdominal pain, right lower quadrant (Acute) Lower abdominal pain (Acute) Chronic systolic CHF (congestive heart failure) Hypertension, essential Chest pain (Acute) Chronic chest pain Chest pain (Acute) HTN, goal below 130/80 Dyslipidemia, goal LDL below 70 Stented coronary artery Premature coronary artery disease Chest pain at rest Chest pain (Acute) Rhinovirus infection Abnormal laboratory test (Acute) Coronary artery disease due to calcified coronary lesion Dialysis complication (Acute) Syncope (Acute) Acute hyperkalemia (Acute) Symptomatic anemia (Acute) Episode of syncope Rectal bleeding Chest pain (Acute) ESRD on dialysis (Acute) Acute hyperkalemia (Acute) Elevated troponin (Acute) Chest pain not due to acute coronary syndrome (Acute) Bleeding external hemorrhoids (Acute) Non-compliance (Acute) Fluid overload (Acute) Uremia (Acute) Anemia (Acute) Depression (Acute) Weakness (Acute) Sleep deprivation (Acute) Hallucinations (Acute) Anemia (Acute) Dialysis patient (Acute) Medical non-compliance (Acute) Acute uremia (Acute) Shortness of breath (Acute) Elevated troponin (Acute) Acute hyperkalemia (Acute) SOB (shortness of breath) (Acute) SOB (shortness of breath) (Acute) Acute uremia (Acute) Somnolence (Acute) Medical non-compliance (Acute) Elevated troponin (Acute) Dialysis patient (Acute) Renal failure (Acute) Hyperkalemia (Acute) Thrombocytopenia COVID-19 (Acute) Renal osteodystrophy Anemia in ESRD (end-stage renal disease) ESRD (end stage renal disease) on dialysis (Acute) Anxiety Depression Major depressive disorder, recurrent, in partial remission Anemia of chronic disease Status post fall last fallNovember 2022 > nasal fx / knee pain, no surgery for either injury > resolved per pt report Prolonged QT interval (Acute) no cardio Anemia due to end stage renal disease (Acute) FSGS (focal segmental glomerulosclerosis) (Chronic) DX INITIALLY 2012 (CAUSING ESRD 2012) Medical History HTN (hypertension) Ischemic cardiomyopathy Status post insertion of drug-eluting stent into left anterior descending (LAD) artery Coronary artery disease ESRD (end stage renal disease) on dialysis Substernal chest pain Atypical chest pain Anemia Atypical chest pain CHF (congestive heart failure) Depression with anxiety DM2 (diabetes mellitus, type 2) Mood disorder Anxiety disorder, unspecified Abnormal chest xray Elevated lactic acid level Transaminitis Pneumonia Metabolic encephalopathy Acute non-ST elevation myocardial infarction (NSTEMI) Pulmonary edema Acute hyperkalemia Acute alteration in mental status Renal failure (ARF), acute on chronic Encephalopathy Facial fracture GI bleed ESRD (end stage renal disease) on dialysis Symptomatic anemia Tobacco abuse DVT prophylaxis Fistula right arm (currently being used) and left arm Dialysis patient SATURDAY/SAT/SATURDAY AT [facility] GERD (gastroesophageal reflux disease) Bipolar disorder Restless leg syndrome Peripheral neuropathy Asthma rare res inh use History of abnormal cervical Papanicolaou smear Elevated troponin Acute electrocardiogram changes Surgical History S/P right coronary artery (RCA) stent placement History of heart artery stent H/O eye surgery LASER SURGERY LEFT History of surgery left arm d/t clot in arm from AV fistula use @ [facility] History of surgery (~09/09/20) perm cath > since removed History of colonoscopy Kidney transplant recipient 2013 AT [facility] History of tooth extraction three TOOTH History of cardiac cath 2017 NO STENTS AVF (arteriovenous fistula) bilat upper arms ---currently using right for dialysis Family History Grandmother Hx of CABG Mother Diabetes Father Crohn's disease Grandfather (Maternal) Diabetes Uncle Diabetes Grandmother (Maternal) Family history of reaction to anesthesia difficulty waking with colonoscopy Social History Smoking Status: Former smoker Tobacco Type: Cigarettes Cigarettes Per Day: 20; Second Hand Exposure: No; Do You Dip or Chew Tobacco: No; Hx Alcohol Use: No Hx Substance Use: No Preferred Language: Irish Communication Ability: Effective Velocity Shooter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 Beliefs That Will Affect Care: None marital status: Single Current Living Situation: Family Current Living Situation Comment: with grandparents How many Children do You have: 3 Feels Safe at Home: Yes Assistive Devices: None Allergies Allergies Allergy/AdvReac Type Severity Reaction Status Date / Time cefaclor Allergy Intermediate Rash Verified 08/10/24 00:08 Cephalosporins Allergy Intermediate Rash Verified 08/10/24 00:08 amoxicillin AdvReac Intermediate VOMITING Verified 08/10/24 00:08 clavulanic acid AdvReac Intermediate VOMITING Verified 08/10/24 00:08 Home Meds Home Medications Medication Instructions Recorded Confirmed carbamazepine 200 mg tablet 200 mg PO AMPM 06/08/23 09/05/24 hydroxyzine HCl 25 mg tablet 25 mg PO Q6H PRN Anxiety 06/08/23 09/05/24 lorazepam 0.5 mg tablet 0.5 mg PO Q8H PRN Anxiety 06/08/23 09/05/24 vitamin B complex-vitamin C-folic 1 tab PO QAM 06/08/23 09/05/24 acid 0.8 mg tablet (Renal-Rika) benzonatate 100 mg capsule 200 mg PO TID PRN Cough 08/29/23 09/05/24 calcium acetate(phosphat bind) 667 2,001 mg PO UD 08/29/23 09/05/24 mg capsule medroxyprogesterone 150 mg/mL 150 mg IM .EVERY 3 MONTHS 08/29/23 09/05/24 intramuscular suspension (Depo-Provera) bupropion HCl 150 mg 24 hr tablet, 150 mg PO QAM 04/17/24 09/05/24 extended release mirtazapine 7.5 mg tablet 7.5 mg PO HS 04/17/24 09/05/24 amlodipine 2.5 mg tablet 2.5 mg PO QAM 07/24/24 09/05/24 atorvastatin 40 mg tablet 40 mg PO QPM 07/24/24 09/05/24 metoprolol succinate 50 mg 50 mg PO BID 07/24/24 09/05/24 tablet,extended release 24 hr varenicline tartrate 1 mg tablet 1 mg PO BID 07/24/24 09/05/24 Previous Rx's Medication Instructions Recorded lidocaine 5 % topical ointment 1 applic topical QID PRN pain #30 04/11/24 grams aspirin 81 mg tablet,delayed 81 mg PO QAM #30 tabs 05/09/24 release clopidogrel 75 mg tablet 75 mg PO QAM #30 tabs 05/09/24 cyclobenzaprine 5 mg tablet 5 mg PO Q8H #30 tabs 08/01/24 oxycodone-acetaminophen 5 mg-325 1 tab PO Q8H PRN pain #15 tabs 08/10/24 mg tablet (Percocet) Results & Data (ED) Vital Signs Vital Signs - 24 hr 09/05/24 15:42 09/05/24 16:26 Temperature 36.5 C Temperature Source Skin Pulse Rate 104 H Pulse Rate [Apical] 89 Respiratory Rate 20 18 Respiratory Effort / Characteristics Non-Labored Spontaneous Respiratory Depth Normal Respiratory Pattern Regular Blood Pressure 107/67 Blood Pressure [Right Radial Artery] 131/73 Blood Pressure Mean 80 Blood Pressure Mean [Right Radial Artery] 92 Pulse Oximetry 95 96 Oxygen Delivery Method Room Air Room Air Sepsis Recent Fever Within 48 Hours No Sepsis New/Unexplained Change in Mental Status N/A Sepsis Action Taken by Nursing No Action Required Laboratory Data 09/05/24 16:13 09/05/24 16:13 Lab Results 09/05/24 09/05/24 Range/Units 16:13 16:27 WBC 2.25 L (4.8-10.8) K/ul RBC 2.97 L (4.20-5.40) M/uL Hgb 9.6 L (12.0-16.0) g/dl Hct 29.4 L (37.0-47.0) % MCV 99.0 (80.0-100.0) fL MCH 32.3 (25.0-34.0) pg MCHC 32.7 (32.0-36.0) g/dL RDW Std Deviation 60.0 H (36.4-46.3) fL RDW Coeff of Laith 16.4 H (11.5-14.5) % Plt Count 97 L (130-400) K/uL MPV 11.4 (9.4-12.4) fL Immature Gran % (Auto) 0.4 % Neut % (Auto) 73.0 % Lymph % (Auto) 11.1 % [place] % (Auto) 14.2 % Eos % (Auto) 0.9 % Baso % (Auto) 0.4 % Neut # (Auto) 1.64 (1.40-6.50) K/uL Lymph # (Auto) 0.25 L (1.20-3.40) K/uL [place] # (Auto) 0.32 (0.11-0.59) K/uL Eos # (Auto) 0.02 (0.00-0.50) K/uL Baso # (Auto) 0.01 (0.00-0.20) K/uL Immature Gran # (Auto) 0.01 (0.01-0.20) K/uL PT 11.4 (9.0-12.0) Seconds INR 1.1 (0.9-1.1) Sodium 132 L (136-145) mmol/L Potassium 5.0 (3.5-5.1) mmol/L Chloride 89 L (98-107) mmol/L Carbon Dioxide 27 (21-32) mmol/L Anion Gap 16 H (3-11) BUN 60 H (6-23) mg/dl Creatinine 12.12 H* (0.6-1.2) mg/dl Est Cr Clr Drug Dosing Not Reportable eGFR 3.70 BUN/Creatinine Ratio 5.0 L (10-20) Glucose 108 H (70-99(Fasting)) mg/dl Lactate 1.1 (0.4-2.0) mmol/L Calcium 9.8 (8.6-10.3) mg/dl Magnesium 2.3 (1.7-2.4) mg/dl Total Bilirubin 0.7 (0.2-1.0) mg/dl AST 26 (13-39) U/L ALT 14 (7-52) U/L Alkaline Phosphatase 87 (34-104) U/L Troponin I High Sens 84.9 H* (0-14) pg/ml B-Natriuretic Peptide 2045 H (0-100) pg/ml Total Protein 6.4 (6.0-8.3) gm/dl Albumin 4.1 (3.4-5.0) gm/dl Globulin 2.3 L (2.5-4.0) gm/dl Albumin/Globulin Ratio 1.8 (0.9-2) TSH 3.335 (0.300-4.500) uIu/ml Adenovirus (PCR) Not Detected (NotDetected) B. pertussis DNA (PCR) Not Detected (NotDetected) B.parapertussis DNA PCR Not Detected (NotDetected) C. pneumoniae DNA (PCR) Not Detected (NotDetected) Coronavirus OC43 (PCR) Not Detected (NotDetected) Coronavirus HKU1 (PCR) Not Detected (NotDetected) Coronavirus 229E (PCR) Not Detected (NotDetected) SARS-CoV-2 (PCR) Not Detected (NotDetected) Coronavirus NL63 (PCR) Not Detected (NotDetected) Human Metapneumovir PCR Not Detected (NotDetected) Influenza Type A (PCR) Not Detected (NotDetected) Influenza Type B (PCR) Not Detected (NotDetected) M. pneumoniae (PCR) Not Detected (NotDetected) Parainfluenza 1 (PCR) Not Detected (NotDetected) Parainfluenza 2 (PCR) Not Detected (NotDetected) Parainfluenza 3 (PCR) Not Detected (NotDetected) Parainfluenza 4 (PCR) Not Detected (NotDetected) RSV (PCR) Not Detected (NotDetected) Entero/Rhino (PCR) Not Detected (NotDetected) Imaging Data Radiologist's Impression: Chest X-Ray 09/05/24 15:52 EXAM: Radiograph of the Chest 1 View INDICATION: Weakness. TECHNIQUE: Frontal view of the chest. COMPARISON: 08/10/2024 FINDINGS: Lungs and pleural spaces: No consolidation or pulmonary edema. No pleural effusion or pneumothorax. Heart: Stable large cardiac shadow. Mediastinum: Normal contour. Bones/joints: Postoperative deformity distal right clavicle. No acute osseous abnormality. Soft tissues: Brachiocephalic and right axillary stents noted. Upper abdomen: No abnormality noted. IMPRESSION: No acute cardiopulmonary disease. ACT 112: Negative or not required by law. Electronically signed by Ksenia Mejia 09-05-2024 4:37 PM Discharge Plan Visit Data Chief Complaint: Pain (Generalized) Stated Complaint: ACHE ALL OVER, NAUSEA, NO APPETITE ED Provider: Mayra Calle Discharge Problem: Generalized weakness, ESRD on dialysis Forms Stand Alone Forms: My [facility] Prescriptions Prescriptions: No Action carbamazepine 200 mg tablet 200 mg PO AMPM lorazepam 0.5 mg tablet 0.5 mg PO Q8H MDD panic attacks/before dialysis PRN (Reason: Anxiety) hydroxyzine HCl 25 mg tablet 25 mg PO Q6H PRN (Reason: Anxiety) Renal-Rika 0.8 mg Tablet 1 tab PO QAM benzonatate 100 mg capsule 200 mg PO TID PRN (Reason: Cough) medroxyprogesterone [Depo-Provera] 150 mg/mL Suspension 150 mg IM .EVERY 3 MONTHS Rx Instructions: Every 3 months calcium acetate(phosphat bind) 667 mg Capsule 2,001 mg PO UD Rx Instructions: take three tabs ( 2001mg) with each meal and none with snack. metoprolol succinate 50 mg tablet extended release 24 hr 50 mg PO BID amlodipine 2.5 mg tablet 2.5 mg PO QAM varenicline tartrate 1 mg tablet 1 mg PO BID atorvastatin 40 mg tablet 40 mg PO QPM oxycodone-acetaminophen [Percocet] 5-325 mg tablet 1 tab PO Q8H PRN (Reason: pain) Qty: 15 0RF lidocaine 5 % ointment 1 applic topical QID PRN (Reason: pain) Qty: 30 3RF Rx Instructions: Apply to rectal area up to 4 times daily as needed. bupropion HCl 150 mg tablet extended release 24 hr 150 mg PO QAM mirtazapine 7.5 mg tablet 7.5 mg PO HS clopidogrel 75 mg Tablet 75 mg PO QAM Qty: 30 3RF aspirin 81 mg Tablet,Delayed Release (Dr/Ec) 81 mg PO QAM Qty: 30 0RF cyclobenzaprine 5 mg tablet 5 mg PO Q8H Qty: 30 0RF Referrals Referrals: Adolph Aldridge MD [Primary Care Provider] -
--- NOTE | 2024-09-05 16:38 | XRay Report ---
EXAM: Radiograph of the Chest 1 View INDICATION: Weakness. TECHNIQUE: Frontal view of the chest. COMPARISON: 08/10/2024 FINDINGS: Lungs and pleural spaces: No consolidation or pulmonary edema. No pleural effusion or pneumothorax. Heart: Stable large cardiac shadow. Mediastinum: Normal contour. Bones/joints: Postoperative deformity distal right clavicle. No acute osseous abnormality. Soft tissues: Brachiocephalic and right axillary stents noted. Upper abdomen: No abnormality noted. IMPRESSION: No acute cardiopulmonary disease. ACT 112: Negative or not required by law. Electronically signed by Ksenia Mejia 09-05-2024 4:37 PM
[2024-09-05 17:01] LABS: Basophils # (auto) 0.01 K/uL (0.00-0.20); Basophils % (auto) 0.4 %; Eosinophils # (auto) 0.02 K/uL (0.00-0.50); Eosinophils % (auto) 0.9 %; Hematocrit (blood only) 29.4 % (37.0-47.0); Hemoglobin 9.6 g/dl (12.0-16.0); Immature Granulocytes # (auto) 0.01 K/uL (0.01-0.20); Immature Granulocytes % (auto) 0.4 %; Lymphocytes # (auto) 0.25 K/uL (1.20-3.40); Lymphocytes % (auto) 11.1 %; Mean Corpuscular Hemoglobin 32.3 pg (25.0-34.0); Mean Corpuscular Hgb Conc 32.7 g/dL (32.0-36.0); Mean Platelet Volume 11.4 fL (9.4-12.4); Monocytes # (auto) 0.32 K/uL (0.11-0.59); Monocytes % (auto) 14.2 %; Neutrophils # (auto) 1.64 K/uL (1.40-6.50); Platelet Count 97 K/uL (130-400); RDW Coefficient of Variation 16.4 % (11.5-14.5); Red Blood Count 2.97 M/uL (4.20-5.40); White Blood Count 2.25 K/ul (4.8-10.8)
[2024-09-05 17:09] LABS: Alanine Aminotransferase 14 U/L (7-52); Albumin Globulin Ratio 1.8 (0.9-2); Albumin Level 4.1 gm/dl (3.4-5.0); Alkaline Phosphatase 87 U/L (34-104); Anion Gap 16 (3-11); Aspartate Aminotransferase 26 U/L (13-39); Bilirubin,Total 0.7 mg/dl (0.2-1.0); Blood Urea Nitrogen 60 mg/dl (6-23); Calcium 9.8 mg/dl (8.6-10.3); Carbon Dioxide 27 mmol/L (21-32); Chloride 89 mmol/L (98-107); Globulin 2.3 gm/dl (2.5-4.0); Glucose 108 mg/dl (70-99(Fasting)); Magnesium 2.3 mg/dl (1.7-2.4); Sodium 132 mmol/L (136-145); Total Protein 6.4 gm/dl (6.0-8.3)
[2024-09-05 17:14] LABS: INR 1.1 (0.9-1.1); Prothrombin Time 11.4 Seconds (9.0-12.0)
[2024-09-05 17:16] LABS: Troponin I High Sensitivity 84.9 pg/ml (0-14)
[2024-09-05 17:26] LABS: Thyroid Stimulating Hormone 3.335 uIu/ml (0.300-4.500)
[2024-09-05 17:29] LABS: Adenovirus PCR Not Detected (NotDetected); Bordetella parapertussis PCR Not Detected (NotDetected); Bordetella pertussis PCR Not Detected (NotDetected); Chlamydia pneumoniae PCR Not Detected (NotDetected); Coronavirus 229E PCR Not Detected (NotDetected); Coronavirus CoV-2 (COVID19)PCR Not Detected (NotDetected); Coronavirus HKU1 PCR Not Detected (NotDetected); Coronavirus NL63 PCR Not Detected (NotDetected); Coronavirus OC43PCR Not Detected (NotDetected); Human Metapneumovirus PCR Not Detected (NotDetected); Influenza A PCR Not Detected (NotDetected); Influenza B PCR Not Detected (NotDetected); Mycoplasma pneumoniae PCR Not Detected (NotDetected); Parainfluenza Virus 1 PCR Not Detected (NotDetected); Parainfluenza Virus 2 PCR Not Detected (NotDetected); Parainfluenza Virus 3 PCR Not Detected (NotDetected); Parainfluenza Virus 4 PCR Not Detected (NotDetected); Respiratory Syncytial VirusPCR Not Detected (NotDetected); Rhinovirus/Enterovirus PCR Not Detected (NotDetected)
--- NOTE | 2024-09-05 18:08 | History & Physical Report ---
Date of Service September 05, 2024 Assessment & Plan (1) ESRD on dialysis: (2) Generalized weakness: Plan: Patient is a 38-year-old female with ESRD on HD Saturday and Fridays, chronic systolic CHF with ejection fraction 45%, coronary disease st atus post PCI, hypertension status post failed renal transplant, diabetes mellitus type 2 and anxiety disorder, Presenting with weakness. ESRD on hemodialysis History of FSGS status post failed renal transplant Missed last 2 hemodialysis sessions due to anxiety, childcare issues Nephrology service consulted History of CAD, stent placement History of cardiorenal syndrome History of systolic CHF Continue aspirin, Plavix, atorvastatin, metoprolol Hypertension Continue amlodipine Diabetes type 2 diet controlled Anxiety uncontrolled Continue mirtazapine, Bupropion Continue as needed hydroxyzine, Ativan consult Psych DVT prophylaxis SCDs for now Full code Disposition Lives at home History of Present Illness Chief Complaint: Weakness Primary Care Provider: Adolph Aldridge MD Patient is a 38-year-old female with ESRD on HD Saturday and Fridays, chronic systolic CHF with ejection fraction 45%, coronary disease status post PCI, hypertension status post failed renal transplant, diabetes mellitus type 2 and anxiety disorder, Presenting with weakness. Patient states that she missed her last 2 hemodialysis sessions because she was having increased anxiety last Saturday and she had childcare issues yesterday. As per ER physician, patient presented with "feeling horrible", nausea, diarrhea. Chest x-ray: No pulmonary edema, pleural effusion Creatinine 12.1, potassium 5.0 Patient's chief complaint to me was she was having increased anxiety. Denies chest pain, shortness of breath, abdominal pain, nausea or vomiting, fevers or chills. Allergies Allergy/AdvReac Type Severity Reaction Status Date / Time cefaclor Allergy Intermediate Rash Verified 08/10/24 00:08 Cephalosporins Allergy Intermediate Rash Verified 08/10/24 00:08 amoxicillin AdvReac Intermediate VOMITING Verified 08/10/24 00:08 clavulanic acid AdvReac Intermediate VOMITING Verified 08/10/24 00:08 Home Medications Medication Instructions Recorded Confirmed Type carbamazepine 200 mg tablet 200 mg PO AMPM 06/08/23 09/05/24 History hydroxyzine HCl 25 mg tablet 25 mg PO Q6H PRN Anxiety 06/08/23 09/05/24 History lorazepam 0.5 mg tablet 0.5 mg PO Q8H PRN Anxiety 06/08/23 09/05/24 History vitamin B complex-vitamin C-folic 1 tab PO QAM 06/08/23 09/05/24 History acid 0.8 mg tablet (Renal-Rika) benzonatate 100 mg capsule 200 mg PO TID PRN Cough 08/29/23 09/05/24 History calcium acetate(phosphat bind) 667 2,001 mg PO UD 08/29/23 09/05/24 History mg capsule medroxyprogesterone 150 mg/mL 150 mg IM .EVERY 3 MONTHS 08/29/23 09/05/24 History intramuscular suspension (Depo-Provera) lidocaine 5 % topical ointment 1 applic topical QID PRN pain #30 04/11/24 09/05/24 Rx grams bupropion HCl 150 mg 24 hr tablet, 150 mg PO QAM 04/17/24 09/05/24 History extended release mirtazapine 7.5 mg tablet 7.5 mg PO HS 04/17/24 09/05/24 History aspirin 81 mg tablet,delayed 81 mg PO QAM #30 tabs 05/09/24 09/05/24 Rx release clopidogrel 75 mg tablet 75 mg PO QAM #30 tabs 05/09/24 09/05/24 Rx amlodipine 2.5 mg tablet 2.5 mg PO QAM 07/24/24 09/05/24 History atorvastatin 40 mg tablet 40 mg PO QPM 07/24/24 09/05/24 History metoprolol succinate 50 mg 50 mg PO BID 07/24/24 09/05/24 History tablet,extended release 24 hr varenicline tartrate 1 mg tablet 1 mg PO BID 07/24/24 09/05/24 History cyclobenzaprine 5 mg tablet 5 mg PO Q8H #30 tabs 08/01/24 09/05/24 Rx oxycodone-acetaminophen 5 mg-325 1 tab PO Q8H PRN pain #15 tabs 08/10/24 09/05/24 Rx mg tablet (Percocet) Past Med/Surg History Problem List (Updated 09/05/24 @ 18:28 by Mayra Calle MD) ESRD on dialysis (Acute) Generalized weakness (Acute) Pelvic pain Hyperkalemia Bilateral pleural effusion 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 Pericardial effusion Abdominal pain, right lower quadrant (Acute) Lower abdominal pain (Acute) Chronic systolic CHF (congestive heart failure) Hypertension, essential Chest pain (Acute) Chronic chest pain Chest pain (Acute) HTN, goal below 130/80 Dyslipidemia, goal LDL below 70 Stented coronary artery Premature coronary artery disease Chest pain at rest Chest pain (Acute) Rhinovirus infection Abnormal laboratory test (Acute) Coronary artery disease due to calcified coronary lesion Dialysis complication (Acute) Syncope (Acute) Acute hyperkalemia (Acute) Symptomatic anemia (Acute) Episode of syncope Rectal bleeding Chest pain (Acute) ESRD on dialysis (Acute) Acute hyperkalemia (Acute) Elevated troponin (Acute) Chest pain not due to acute coronary syndrome (Acute) Bleeding external hemorrhoids (Acute) Non-compliance (Acute) Fluid overload (Acute) Uremia (Acute) Anemia (Acute) Depression (Acute) Weakness (Acute) Sleep deprivation (Acute) Hallucinations (Acute) Anemia (Acute) Dialysis patient (Acute) Medical non-compliance (Acute) Acute uremia (Acute) Shortness of breath (Acute) Elevated troponin (Acute) Acute hyperkalemia (Acute) SOB (shortness of breath) (Acute) SOB (shortness of breath) (Acute) Acute uremia (Acute) Somnolence (Acute) Medical non-compliance (Acute) Elevated troponin (Acute) Dialysis patient (Acute) Renal failure (Acute) Hyperkalemia (Acute) Thrombocytopenia COVID-19 (Acute) Renal osteodystrophy Anemia in ESRD (end-stage renal disease) ESRD (end stage renal disease) on dialysis (Acute) Anxiety Depression Major depressive disorder, recurrent, in partial remission Anemia of chronic disease Status post fall last fallNovember 2022 > nasal fx / knee pain, no surgery for either injury > resolved per pt report Prolonged QT interval (Acute) no cardio Anemia due to end stage renal disease (Acute) FSGS (focal segmental glomerulosclerosis) (Chronic) DX INITIALLY 2012 (CAUSING ESRD 2012) Medical History HTN (hypertension) Ischemic cardiomyopathy Status post insertion of drug-eluting stent into left anterior descending (LAD) artery Coronary artery disease ESRD (end stage renal disease) on dialysis Substernal chest pain Atypical chest pain Anemia Atypical chest pain CHF (congestive heart failure) Depression with anxiety DM2 (diabetes mellitus, type 2) Mood disorder Anxiety disorder, unspecified Abnormal chest xray Elevated lactic acid level Transaminitis Pneumonia Metabolic encephalopathy Acute non-ST elevation myocardial infarction (NSTEMI) Pulmonary edema Acute hyperkalemia Acute alteration in mental status Renal failure (ARF), acute on chronic Encephalopathy Facial fracture GI bleed ESRD (end stage renal disease) on dialysis Symptomatic anemia Tobacco abuse DVT prophylaxis Fistula right arm (currently being used) and left arm Dialysis patient SATURDAY/SAT/SATURDAY AT [facility] GERD (gastroesophageal reflux disease) Bipolar disorder Restless leg syndrome Peripheral neuropathy Asthma rare res inh use History of abnormal cervical Papanicolaou smear Elevated troponin Acute electrocardiogram changes Surgical History S/P right coronary artery (RCA) stent placement History of heart artery stent H/O eye surgery LASER SURGERY LEFT History of surgery left arm d/t clot in arm from AV fistula use @ [facility] History of surgery (~09/09/20) perm cath > since removed History of colonoscopy Kidney transplant recipient 2013 AT [facility] History of tooth extraction three TOOTH History of cardiac cath 2016 NO STENTS AVF (arteriovenous fistula) bilat upper arms ---currently using right for dialysis Family History Grandmother Hx of CABG Mother Diabetes Father Crohn's disease Grandfather (Maternal) Diabetes Uncle Diabetes Grandmother (Maternal) Family history of reaction to anesthesia difficulty waking with colonoscopy Social History Smoking Status: Former smoker Tobacco Type: Cigarettes Cigarettes Per Day: 20; Second Hand Exposure: No; Do You Dip or Chew Tobacco: No; Hx Alcohol Use: No Hx Substance Use: No Preferred Language: Montenegrin Communication Ability: Effective Secondary Social Studies Teacher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 Beliefs That Will Affect Care: None marital status: Single Current Living Situation: Family Current Living Situation Comment: with grandparents How many Children do You have: 3 Feels Safe at Home: Yes Assistive Devices: None Review of Systems Review of Systems: all noted and negative except for above Physical Exam Physical Exam: General- oriented x 3, not in distress, speaks in sentences with no effort or accessory muscle use Head- atraumatic Eyes- PERRL, EOMI, anicteric ENT- oropharynx clear Neck- supple, no JVD, no adenopathy, no thyromegaly; carotids +2/2, no bruits appreciated Lungs- clear to auscultation bilaterally, no rales/wheezes Heart- normal rate, regular rhythm; no murmur, no gallop, no rub appreciated Abdomen- normal bowel sounds, nondistended, soft, nontender, no masses or hepatosplenomegaly Extremities- no pretibial edema, no calf tenderness; peripheral pulses intact Neuro- alert, oriented x 3; CN 2-12 grossly intact; motor 5/5 bilaterally;sensation 100% on all extremities; no other gross focal neurologic deficits Skin- warm & dry Results & Data Results & Data Vital Signs (Past 12 Hours) Vital Signs Temp Pulse Pulse Resp BP BP Pulse Ox 09/05/24 16:26 89 18 131/73 96 09/05/24 15:42 36.5 C 104 H 20 107/67 95 O2 Del Method 09/05/24 16:26 Room Air 09/05/24 15:42 Room Air all noted and negative except for above
[2024-09-05] MEDS: LORazepam 0.5 MG TAB PO STA (19:54)
[2024-09-05] MEDS ORDERED: LIDOCAINE 5% OINT 30 GM TUBE TOP PRN (21:07)
[2024-09-05] MEDS ORDERED: hydrOXYzine HCl 25 MG TAB PO PRN (21:07)
[2024-09-05] MEDS: CALCIUM ACETATE 667 MG CAP/TAB PO SCH (21:45)
[2024-09-05] MEDS: ACETAMINOPHEN 325 MG TAB PO PRN (22:12)
[2024-09-05] MEDS: carBAMazepine 200 MG TABLET PO SCH (22:13)
[2024-09-05] MEDS: CYCLOBENZAPRINE HCL 5 MG TAB PO SCH (22:14)
[2024-09-05] MEDS: traMADol HCL 50 MG TABLET PO PRN (23:41)
[2024-09-06] MEDS: LORazepam 0.5 MG TAB PO PRN (01:04)
[2024-09-06] MEDS: amLODIPine BESYLATE 5 MG TAB PO SCH (09:39)
[2024-09-06] MEDS: ASPIRIN 81 MG ECTAB PO SCH (09:40)
[2024-09-06] MEDS: buPROPion XL 150 MG TABCR PO SCH (09:40)
[2024-09-06] MEDS: NEPHROCAPS PO SCH (09:41)
[2024-09-06] MEDS: CLOPIDOGREL BISULFATE 75 MG TAB PO SCH (09:41)
[2024-09-06] MEDS: METOPROLOL SUCC 50MG EXT REL TAB PO SCH (09:41)
[2024-09-06 09:48] LABS: Basophils # (auto) 0.01 K/uL (0.00-0.20); Basophils % (auto) 0.5 %; Eosinophils # (auto) 0.03 K/uL (0.00-0.50); Eosinophils % (auto) 1.4 %; Hematocrit (blood only) 29.6 % (37.0-47.0); Hemoglobin 9.7 g/dl (12.0-16.0); Immature Granulocytes # (auto) 0.01 K/uL (0.01-0.20); Immature Granulocytes % (auto) 0.5 %; Lymphocytes # (auto) 0.25 K/uL (1.20-3.40); Lymphocytes % (auto) 11.3 %; Mean Corpuscular Hgb Conc 32.8 g/dL (32.0-36.0); Mean Corpuscular Volume 97.7 fL (80.0-100.0); Mean Platelet Volume 11.2 fL (9.4-12.4); Monocytes # (auto) 0.29 K/uL (0.11-0.59); Monocytes % (auto) 13.1 %; Neutrophils # (auto) 1.62 K/uL (1.40-6.50); Neutrophils % (auto) 73.2 %; Platelet Count 81 K/uL (130-400); RDW Coefficient of Variation 16.5 % (11.5-14.5); RDW Standard Deviation 58.6 fL (36.4-46.3); Red Blood Count 3.03 M/uL (4.20-5.40); White Blood Count 2.21 K/ul (4.8-10.8)
[2024-09-06 10:07] LABS: BUN Creatinine Ratio 5.1 (10-20); Calcium 9.9 mg/dl (8.6-10.3); Creatinine Clr Calc Pharmacy 5.6 ml/min; Potassium 5.2 mmol/L (3.5-5.1)
[2024-09-06 10:12] LABS: Troponin I High Sensitivity 82.8 pg/ml (0-14)
--- NOTE | 2024-09-06 13:43 | Hospitalist Progress Note ---
Date of Service September 06, 2024 Assessment & Plan (1) ESRD on dialysis: (2) Generalized weakness: Plan: 38-year-old female with ESRD on HD Saturday and Fridays, chronic systolic CHF with ejection fraction 45%, coronary disease status post PCI, hypertension status post failed renal transplant, diabetes mellitus type 2 and anxiety disorder presenting with weakness. Patient is stated that she missed her 2 hemodialysis session because she was having increased anxiety. To ER physician she complained of feeling horrible, nausea, diarrhea. To admitting team see complaint of increased anxiety as a reason to come to the hospital. She is being managed for the following: ESRD on hemodialysis History of FSGS status post failed renal transplant Missed last 2 hemodialysis sessions [facility] due to anxiety, childcare issues Nephrology service consulted. c/w tele, monitor electrolytes. Anxiety uncontrolled pt reports severe anxiety and missing HD due to anxiety. Continue mirtazapine, Bupropion Continue as needed hydroxyzine, Ativan Psychiatry consulted, await recs. History of CAD, stent placement History of cardiorenal syndrome History of systolic CHF Continue aspirin, Plavix, atorvastatin, metoprolol Hypertension: Continue amlodipine Diabetes type 2 diet controlled DVT prophylaxis: SCDs for now Full code Disposition: Lives at home Admission and Anticipated Discharge Date Admission Date: September 05, 2024 Subjective Patient was seen and examined at bedside. Patient was sitting up in bed, on room air, NAD, resting comfortably. Patient has been complaining of chest pain and asking for strong pain medication. She is requesting "one dose of something strong, then she will manage with Tylenol" to RN. She requested "some strong IV pain medication" during my bedside exam. She reports her pain is constant and has been ongoing. Repeat troponin flat trend, EKG with no acute ST or T changes. Patient has been declining her Tylenol and tramadol. Upon not receiving IV pain medication, patient threatened to leave AMA, patient has been explained that given she has missed hemodialysis twice, she is at risks of volume overload/respiratory d ecompensation and electrolyte abnormalities/cardiac arrhythmia leading to/including . Per RN, no new acute events overnight, no diarrhea overnight and in AM. Pt reports 2 loose stools in AM. Will continue to monitor. Patient denies febrile illness/cough/sore throat. Patient reports eating okay and moving bowels okay. Patient reports anxiety and not going to hemodialysis. Physical Exam Physical Exam: General- oriented x 3, not in distress, speaks in sentences with no effort or accessory muscle use Head- atraumatic Eyes- PERRL, EOMI, anicteric ENT- oropharynx clear Neck- supple, no JVD, no adenopathy, no thyromegaly; carotids +2/2, no bruits appreciated Lungs- clear to auscultation bilaterally, no rales/wheezes Heart- normal rate, regular rhythm; no murmur, no gallop, no rub appreciated Abdomen- normal bowel sounds, nondistended, soft, nontender, no masses or hepatosplenomegaly Extremities- no pretibial edema, no calf tenderness; peripheral pulses intact Neuro- alert, oriented x 3; CN 2-12 grossly intact; motor 5/5 bilaterally;sensation 100% on all extremities; no other gross focal neurologic deficits Skin- warm & dry Results & Data Results & Data Vital Signs (Past 12 Hours) Vital Signs Temp Pulse Resp BP Pulse Ox O2 Del Method 09/06/24 10:56 37.3 C 82 14 131/84 93 Room Air 09/06/24 08:48 Room Air 09/06/24 07:31 36.6 C 96 H 14 138/81 97 Room Air 09/06/24 04:00 36.8 C 87 20 132/85 93 Room Air
[2024-09-06] MEDS: oxyCODONE/ACETAMINOPHEN 5mg/325mg TAB PO PRN (14:37)
[2024-09-06] MEDS: MIRTAZAPINE TAB 15 MG TAB PO SCH (14:40)
--- NOTE | 2024-09-06 14:55 | Nephrology Consultation ---
Date of Consultation September 06, 2024 Assessment & Plan (1) ESRD on dialysis: Patient with ESRD on dialysis Saturday. She missed dialysis Saturday and Saturday. She now presents with weakness and increasing anxiety. Her potassium is high , 5.2. She is also complaining of chest pain. Will plan on dialyzing her tomorrow for 3-1/2 hours target UF 2 L. (2) Hyperkalemia: due to missed dialysis. Potassium was 5.2 today. Will give her Lokelma 10 g today. Will dialyze her tomorrow on a 2K bath. History of Present Illness Reason for Consultation: ESRD with chest pain Requesting Physician: Juwan Jackson MD Attending Physician: Jwuan Jackson MD History of Present Illness Patient is a 38-year-old female with ESRD on HD Saturday and Fridays, chronic systolic CHF with ejection fraction 45%, coronary disease status post PCI, hypertension status post failed renal transplant, diabetes mellitus type 2 and anxiety disorder who was admitted with weakness, anxiety and chest pain. Main complaint this morning is chest pain. Patient missed dialysis on Saturday and Saturday. She has a right upper arm AV fistula. She denies shortness of breath. Chest x-ray on admission showed no acute pulmonary process. No leg swelling. Blood pressure is controlled. Allergies Allergy/AdvReac Type Severity Reaction Status Date / Time cefaclor Allergy Intermediate Rash Verified 08/10/24 00:08 Cephalosporins Allergy Intermediate Rash Verified 08/10/24 00:08 amoxicillin AdvReac Intermediate VOMITING Verified 08/10/24 00:08 clavulanic acid AdvReac Intermediate VOMITING Verified 08/10/24 00:08 Home Medications Medication Instructions Recorded Confirmed Type carbamazepine 200 mg tablet 200 mg PO AMPM 06/08/23 09/05/24 History hydroxyzine HCl 25 mg tablet 25 mg PO Q6H PRN Anxiety 06/08/23 09/05/24 History lorazepam 0.5 mg tablet 0.5 mg PO Q8H PRN Anxiety 06/08/23 09/05/24 History vitamin B complex-vitamin C-folic 1 tab PO QAM 06/08/23 09/05/24 History acid 0.8 mg tablet (Renal-Rika) benzonatate 100 mg capsule 200 mg PO TID PRN Cough 08/29/23 09/05/24 History calcium acetate(phosphat bind) 667 2,001 mg PO UD 08/29/23 09/05/24 History mg capsule medroxyprogesterone 150 mg/mL 150 mg IM .EVERY 3 MONTHS 08/29/23 09/05/24 History intramuscular suspension (Depo-Provera) lidocaine 5 % topical ointment 1 applic topical QID PRN pain #30 04/11/24 09/05/24 Rx grams bupropion HCl 150 mg 24 hr tablet, 150 mg PO QAM 04/17/24 09/05/24 History extended release mirtazapine 7.5 mg tablet 7.5 mg PO HS 04/17/24 09/05/24 History aspirin 81 mg tablet,delayed 81 mg PO QAM #30 tabs 05/09/24 09/05/24 Rx release clopidogrel 75 mg tablet 75 mg PO QAM #30 tabs 05/09/24 09/05/24 Rx amlodipine 2.5 mg tablet 2.5 mg PO QAM 07/24/24 09/05/24 History atorvastatin 40 mg tablet 40 mg PO QPM 07/24/24 09/05/24 History metoprolol succinate 50 mg 50 mg PO BID 07/24/24 09/05/24 History tablet,extended release 24 hr varenicline tartrate 1 mg tablet 1 mg PO BID 07/24/24 09/05/24 History cyclobenzaprine 5 mg tablet 5 mg PO Q8H #30 tabs 08/01/24 09/05/24 Rx oxycodone-acetaminophen 5 mg-325 1 tab PO Q8H PRN pain #15 tabs 08/10/24 09/05/24 Rx mg tablet (Percocet) Patient History Medical History HTN (hypertension) Ischemic cardiomyopathy Status post insertion of drug-eluting stent into left anterior descending (LAD) artery Coronary artery disease ESRD (end stage renal disease) on dialysis Substernal chest pain Atypical chest pain Anemia Atypical chest pain CHF (congestive heart failure) Depression with anxiety DM2 (diabetes mellitus, type 2) Mood disorder Anxiety disorder, unspecified Abnormal chest xray Elevated lactic acid level Transaminitis Pneumonia Metabolic encephalopathy Acute non-ST elevation myocardial infarction (NSTEMI) Pulmonary edema Acute hyperkalemia Acute alteration in mental status Renal failure (ARF), acute on chronic Encephalopathy Facial fracture GI bleed ESRD (end stage renal disease) on dialysis Symptomatic anemia Tobacco abuse DVT prophylaxis Fistula right arm (currently being used) and left arm Dialysis patient SATURDAY/SAT/SATURDAY AT [facility] GERD (gastroesophageal reflux disease) Bipolar disorder Restless leg syndrome Peripheral neuropathy Asthma rare res inh use History of abnormal cervical Papanicolaou smear Elevated troponin Acute electrocardiogram changes Surgical History S/P right coronary artery (RCA) stent placement History of heart artery stent H/O eye surgery LASER SURGERY LEFT History of surgery left arm d/t clot in arm from AV fistula use @ [facility] History of surgery (~09/09/20) perm cath > since removed History of colonoscopy Kidney transplant recipient 2013 AT [facility] History of tooth extraction three TOOTH History of cardiac cath 2016 NO STENTS AVF (arteriovenous fistula) bilat upper arms ---currently using right for dialysis Family History Grandmother Hx of CABG Mother Diabetes Father Crohn's disease Grandfather (Maternal) Diabetes Uncle Diabetes Grandmother (Maternal) Family history of reaction to anesthesia difficulty waking with colonoscopy Social History Smoking Status: Former smoker Tobacco Type: Cigarettes Cigarettes Per Day: 20; Second Hand Exposure: No; Do You Dip or Chew Tobacco: No; Tobacco Cessation Education Requested by Patient: No Hx Alcohol Use: No Hx Substance Use: No Preferred Language: Setswana Communication Ability: Effective Chief Commercial Officer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 Beliefs That Will Affect Care: None marital status: Single Current Living Situation: Family Current Living Situation Comment: with grandparents How many Children do You have: 3 Other Information That Helps Us Care for You: No Feels Safe at Home: Yes Safety Concerns: Feels Safe At This Time Assistive Devices: None Review of Systems 2 Review of Systems: All other systems were reviewed and negative except as noted in HPI Physical Exam 2 Physical Exam: General exam: Appears comfortable, no acute distress HEENT: Pupils are equal and reactive to light Neck: No JVD, neck is supple trachea is midline Respiratory system: Clear breath sounds bilaterally. Gastrointestinal: Abdomen is soft, non distended, non tender, bowel sounds are present CVS: Regular rate and rhythm. No murmurs, rubs or gallops Musculoskeletal: No joint or muscle tenderness Extremities: Non tender, no edema, peripheral pulses are present Neuro: Oriented, no tremors, no focal neurological deficits Skin: No rashes Results & Data Vital Signs (Past 12 Hours) Vital Signs Temp Pulse Resp BP Pulse Ox O2 Del Method 09/06/24 14:28 36.9 C 78 16 110/65 93 Room Air 09/06/24 10:56 37.3 C 82 14 131/84 93 Room Air 09/06/24 08:48 Room Air 09/06/24 07:31 36.6 C 96 H 14 138/81 97 Room Air 09/06/24 04:00 36.8 C 87 20 132/85 93 Room Air Laboratory Results 09/06/24 09:25 09/05/24 09/06/24 16:13 09:25 WBC 2.25 L 2.21 L RBC 2.97 L 3.03 L MCV 99.0 97.7 MCH 32.3 32.0 MCHC 32.7 32.8 RDW Std Deviation 60.0 H 58.6 H RDW Coeff of Laith 16.4 H 16.5 H Plt Count 97 L 81 L MPV 11.4 11.2 Albumin 4.1
--- NOTE | 2024-09-06 16:51 | Psychiatric Consultation ---
Date of Consultation September 06, 2024 Impression / Recommendations (1) Depression: Depression Type: unspecified Qualified Code(s): F32.A - Depression, unspecified (2) Anxiety: Plan Per RN and psych liaison, she appears somnolent, although easily aroused. Therefore, recommend holding mirtazapine tonight. Check carbamazepine levels. Note that Tegretol can induce its own metabolism and that of a wide range of other psychotropics and other med classes. This could effectively reduce the efficacy of some medications. May get lorazepam iv tomorrow morning prior to dialysis, if no medical contra indication. Defer adjustment of scheduled doses of her psychotropic medicine to Dr Berger, her outpatient psychiatrist. Recommended limiting use of THC as this has been associated with increased anx iety. Reinforced the use of non-pharmacologic strategies for managing anxiety, many of which she knows and uses. Overall, I spent a total of [] minutes on this case including meeting with the patient, reviewing the chart, nursing report, multidisciplinary team meeting, orders, and documentation. Psych History Identifying Data 38 yo single woman with ESRD on dialysis with a history of depression and anxiety, admitted for non-adherence to dialysis in the past week. Psych liaison notes reviewed from 09/05/24, along with prior consult note by Dr. Short (12/07/23). Per Dr. Short's last note, "diagnostically consistent with major depressive disorder and unspecified anxiety disorder-seems to be a combination of MDD with anxious distress, adjustment disorder with anxious distress due to breakup and situational anxiety from dialysis". Chief Complaint I get anxious about my dialysis. My Ativan isn't working. History of Present Illness Pt with prior visits to this facility, who presents with anxiety after missing her dialysis appointment 2 days ago due to sleeping through her alarm. She also missed her psychiatric outpatient appointment with Dr Berger on 09/01/24. She reports consistently getting anxious during her dialysis sessions and is prescribed prn lorazepam for it. Additionally, she uses non-pharmacologic techniques for managing her anxiety, including listening to music and journaling (journal was noted to be open in front of her during this evaluation). She however has noted that these strategies are no longer working as well as they had. Anxiety is specifically triggered by dialysis and impacts her adherence to treatment (she cannot sit still when anxious). At this time, she would like to consider adjusting her lorazepam dose. Denied panic symptoms, social anxiety or MOIRA. She denied mood symptoms, SI, HI, hallucinations of any modality. She notes that iv lorazepam has worked better than po for her in the past. Both RN and liaison from last night note that she is somnolent, although easily arousable and conversational. She has not appeared confused during this visit. Current Psychiatric Medication: Mirtazapine 7.5mg qhs Wellbutrin 150mg qam Vistaril 25mg q6 hrs prn Ativan 0.5mg q 8 hrs prn Tegretol 200mg bid Toprol XR 50mg bid. Past Psychiatric History Previous Psych History: Extensively documented in prior consult notes, which were reviewed by this junior copywriter. Note contact with psych services at this facility 08/10/24. Denied prior suicide attempt. Per liaison RN note: "she sees Dr. Berger at "[facility]" in [place] for psychiatry. Pt states she had a recent appt. on 09/01 that she slept through and will have to reschedule. Pt confirms taking Wellbutrin, Tegretol, Remeron, prn Vistaril, and prn Ativan. Pt states the Vistaril and Ativan have not been working for anxiety. Pt denies having a therapist and does not want resources for one. Pt states previous thoughts of SI seven months ago but could not explain why. Pt denies trauma hx". Of note, adherence to medical treatment has been variable and limited, and is often attributed to anxiety or depression. Outpatient Services: Although pt reports a diagnosis of bipolar disorder, she did not have a history of symptoms of sharron or hypomania. Previous Psych Admissions: As above. Do You Have Access To A Gun?: No History of Previous Suicide Attempt: No Describe Attempts in the Past: N/A Allergies Allergy/AdvReac Type Severity Reaction Status Date / Time cefaclor Allergy Intermediate Rash Verified 08/10/24 00:08 Cephalosporins Allergy Intermediate Rash Verified 08/10/24 00:08 amoxicillin AdvReac Intermediate VOMITING Verified 08/10/24 00:08 clavulanic acid AdvReac Intermediate VOMITING Verified 08/10/24 00:08 Home Medications Medication Instructions Recorded Confirmed Type carbamazepine 200 mg tablet 200 mg PO AMPM 06/08/23 09/05/24 History hydroxyzine HCl 25 mg tablet 25 mg PO Q6H PRN Anxiety 06/08/23 09/05/24 History lorazepam 0.5 mg tablet 0.5 mg PO Q8H PRN Anxiety 06/08/23 09/05/24 History vitamin B complex-vitamin C-folic 1 tab PO QAM 06/08/23 09/05/24 History acid 0.8 mg tablet (Renal-Rika) benzonatate 100 mg capsule 200 mg PO TID PRN Cough 08/29/23 09/05/24 History calcium acetate(phosphat bind) 667 2,001 mg PO UD 08/29/23 09/05/24 History mg capsule medroxyprogesterone 150 mg/mL 150 mg IM .EVERY 3 MONTHS 08/29/23 09/05/24 History intramuscular suspension (Depo-Provera) lidocaine 5 % topical ointment 1 applic topical QID PRN pain #30 04/11/24 09/05/24 Rx grams bupropion HCl 150 mg 24 hr tablet, 150 mg PO QAM 04/17/24 09/05/24 History extended release mirtazapine 7.5 mg tablet 7.5 mg PO HS 04/17/24 09/05/24 History aspirin 81 mg tablet,delayed 81 mg PO QAM #30 tabs 05/09/24 09/05/24 Rx release clopidogrel 75 mg tablet 75 mg PO QAM #30 tabs 05/09/24 09/05/24 Rx amlodipine 2.5 mg tablet 2.5 mg PO QAM 07/24/24 09/05/24 History atorvastatin 40 mg tablet 40 mg PO QPM 07/24/24 09/05/24 History metoprolol succinate 50 mg 50 mg PO BID 07/24/24 09/05/24 History tablet,extended release 24 hr varenicline tartrate 1 mg tablet 1 mg PO BID 07/24/24 09/05/24 History cyclobenzaprine 5 mg tablet 5 mg PO Q8H #30 tabs 08/01/24 09/05/24 Rx oxycodone-acetaminophen 5 mg-325 1 tab PO Q8H PRN pain #15 tabs 08/10/24 09/05/24 Rx mg tablet (Percocet) Patient History Medical History HTN (hypertension) Ischemic cardiomyopathy Status post insertion of drug-eluting stent into left anterior descending (LAD) artery Coronary artery disease ESRD (end stage renal disease) on dialysis Substernal chest pain Atypical chest pain Anemia Atypical chest pain CHF (congestive heart failure) Depression with anxiety DM2 (diabetes mellitus, type 2) Mood disorder Anxiety disorder, unspecified Abnormal chest xray Elevated lactic acid level Transaminitis Pneumonia Metabolic encephalopathy Acute non-ST elevation myocardial infarction (NSTEMI) Pulmonary edema Acute hyperkalemia Acute alteration in mental status Renal failure (ARF), acute on chronic Encephalopathy Facial fracture GI bleed ESRD (end stage renal disease) on dialysis Symptomatic anemia Tobacco abuse DVT prophylaxis Fistula right arm (currently being used) and left arm Dialysis patient SATURDAY/SAT/SATURDAY AT [facility] GERD (gastroesophageal reflux disease) Bipolar disorder Restless leg syndrome Peripheral neuropathy Asthma rare res inh use History of abnormal cervical Papanicolaou smear Elevated troponin Acute electrocardiogram changes Surgical History S/P right coronary artery (RCA) stent placement History of heart artery stent H/O eye surgery LASER SURGERY LEFT History of surgery left arm d/t clot in arm from AV fistula use @ [facility] History of surgery (~09/09/20) perm cath > since removed History of colonoscopy Kidney transplant recipient 2013 AT [facility] History of tooth extraction three TOOTH History of cardiac cath 2016 NO STENTS AVF (arteriovenous fistula) bilat upper arms ---currently using right for dialysis Family History Grandmother Hx of CABG Mother Diabetes Father Crohn's disease Grandfather (Maternal) Diabetes Uncle Diabetes Grandmother (Maternal) Family history of reaction to anesthesia difficulty waking with colonoscopy Social History Smoking Status: Former smoker Tobacco Type: Cigarettes Cigarettes Per Day: 20; Second Hand Exposure: No; Do You Dip or Chew Tobacco: No; Tobacco Cessation Education Requested by Patient: No Hx Alcohol Use: No Hx Substance Use: No Preferred Language: Japanese Communication Ability: Effective Peg Driver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 Beliefs That Will Affect Care: None marital status: Single Current Living Situation: Family Current Living Situation Comment: with grandparents How many Children do You have: 3 Other Information That Helps Us Care for You: No Feels Safe at Home: Yes Safety Concerns: Feels Safe At This Time Assistive Devices: None Physical Exam Psychiatric: A+Ox3, euthymic affect Orientation: alert and oriented x 3 Apperance: appropriately groomed and appeared stated age Parotid fullness. Eye Contact: good eye contact Motor Behavior: no abnormal motor movements Speech: normal rate/rhythm/volume of speech Affect: + flat affect Mood: + anxious mood Thought Process: goal directed thought proces s, linear/logical thought process and clear/coherent thought process Thought Content: + preoccupation Anxious about dialysis. Suicidal Thoughts: denies suicidal thoughts, denies suicidal plan and denies suicidal intent Denied Homicidal Thoughts: denies homicidal thoughts, denies homicidal plan and denies homicidal intent Denied any Cognition: recent memory grossly intact, remote memory grossly intact, attention grossly intact and language grossly intact Estimated Intelligence: average estimated intelligence Insight: good insight Judgment: good judgement and + limited judgement History of nonadherence to treatment with significant medical sequelae. Vital Signs (Past 24 Hours): Last Vital Signs Temp 36.9 C 09/06/24 14:28 Pulse 81 09/06/24 15:00 Resp 16 09/06/24 14:28 BP 110/65 09/06/24 14:28 Pulse Ox 93 09/06/24 14:28 O2 Del Method Room Air 09/06/24 14:28 Results & Data (PSY) Medications Administered Acetaminophen (Acetaminophen 325 Mg Tab) 650 mg PO Q6H PRN PRN Reason: Pain or Fever Stop: 10/05/24 21:02 Last Admin: 09/05/24 22:12 Dose: 650 mg Documented By: ELIZABETH Amlodipine Besylate (Amlodipine Besylate 5 Mg Tab) [facility] Stop: 10/06/24 08:59 Last Admin: 09/06/24 09:39 Dose: 2.5 mg Documented By: RRR Aspirin (Aspirin 81 Mg Ectab) 81 mg PO QAM [facility] Stop: 10/06/24 08:59 Last Admin: 09/06/24 09:40 Dose: 81 mg Documented By: RRR Bupropion HCl (Bupropion Xl 150 Mg Tabcr) 150 [facility] Stop: 10/06/24 08:59 Last Admin: 09/06/24 09:40 Dose: 150 mg Documented By: RRR Calcium Acetate (Calcium Acetate 667 Mg Cap/Tab) 2,001 mg PO TIDM [facility] Stop: 10/05/24 21:14 Last Admin: 09/06/24 13:17 Dose: Not Given Documented By: Admin: 09/06/24 09:36 Dose: Not Given Documented By: Admin: 09/05/24 21:45 Dose: Not Given Documented By: LALITAP Carbamazepine (Carbamazepine 200 Mg Tablet) 200 mg PO [facility] Stop: 10/05/24 21:14 Last Admin: 09/06/24 09:41 Dose: 200 mg Documented By: Admin: 09/05/24 22:13 Dose: 200 mg Documented By: ELIZABETH Clopidogrel Bisulfate (Clopidogrel Bisulfate 75 Mg Tab) 75 mg PO QAM [facility] Stop: 10/06/24 08:59 Last Admin: 09/06/24 09:41 Dose: 75 mg Documented By: RRR Cyclobenzaprine HCl (Cyclobenzaprine Hcl 5 Mg Tab) 5 mg PO Q8 [facility] Stop: 10/05/24 21:59 Last Admin: 09/06/24 14:38 Dose: Not Given Documented By: Admin: 09/06/24 05:37 Dose: 5 mg Documented By: Admin: 09/05/24 22:14 Dose: 5 mg Documented By: ELIZABETH Lorazepam (Lorazepam 0.5 Mg Tab) 0.5 mg PO Q8H PRN PRN Reason: Anxiety Stop: 10/05/24 21:06 Last Admin: 09/06/24 01:04 Dose: 0.5 mg Documented By: ELIZABETH Metoprolol Succinate (Metoprolol Succ 50mg Ext Rel Tab) 50 mg PO BID [facility] Stop: 10/06/24 08:59 Last Admin: 09/06/24 09:41 Dose: 50 mg Documented By: SHANER Mirtazapine (Mirtazapine Tab 15 Mg Tab) 7.5 mg PO HS [facility] Stop: 10/06/24 20:59 Last Admin: 09/06/24 14:40 Dose: Not Given Documented By: RRR Oxycodone/Acetaminophen (Oxycodone/Acetaminophen 5mg/325mg Tab) 1 tab PO Q8H PRN PRN Reason: pain Stop: 09/20/24 12:59 Last Admin: 09/06/24 14:37 Dose: 1 tab Documented By: ARCENIO Vitamin B Complex/Folic Acid (Nephrocaps) 1 cap PO QAM [facility] Stop: 10/06/24 08:59 Last Admin: 09/06/24 09:41 Dose: 1 cap Documented By: AR[place]EN[place] [address] Inpt Consult Level 1 Patient Type New History Expanded Problem Focused Exam Problem Focused Medical Decision Making Straight Forward Diagnoses Depression F32.A Depression Type: unspecified Anxiety F41.9 Time Spent (min) 60
[2024-09-06] MEDS: ATORVASTATIN 40 MG TAB PO SCH (21:03)
--- NOTE | 2024-09-07 06:01 | Electrocardiogram Report ---
Test Reason : Blood Pressure : */* mmHG Vent. Rate : 92 BPM Atrial Rate : 92 BPM P-R Int : 158 ms QRS Dur : 98 ms QT Int : 376 ms P-R-T Axes : 36 -39 48 degrees QTcB Int : 466 ms Normal sinus rhythm Left axis deviation Possible Anterolateral infarct (cited on or before 21-Mar-2018) Abnormal ECG When compared with ECG of 07-Aug-2024 03:14, No significant change was found Confirmed by Johny Rodriguez ([id number]) on 09/07/2024 6:00:48 AM Referred By: REFERRED SELF Confirmed By: Johny Rodriguez
[2024-09-07 06:42] LABS: Hematocrit (blood only) 30.3 % (37.0-47.0); Hemoglobin 9.5 g/dl (12.0-16.0); Mean Corpuscular Hemoglobin 30.8 pg (25.0-34.0); Mean Corpuscular Hgb Conc 31.4 g/dL (32.0-36.0); Mean Corpuscular Volume 98.4 fL (80.0-100.0); Mean Platelet Volume 10.9 fL (9.4-12.4); Platelet Count 70 K/uL (130-400); RDW Coefficient of Variation 16.3 % (11.5-14.5); RDW Standard Deviation 58.8 fL (36.4-46.3); Red Blood Count 3.08 M/uL (4.20-5.40); White Blood Count 2.17 K/ul (4.8-10.8)
[2024-09-07 07:08] LABS: Calcium 9.7 mg/dl (8.6-10.3); Magnesium 2.5 mg/dl (1.7-2.4); Phosphorus 9.4 mg/dl (2.5-4.9); Potassium 5.7 mmol/L (3.5-5.1)
[2024-09-07] MEDS ORDERED: LORazepam 2 MG/1 ML VIAL IV PRN (08:00)
[2024-09-07] MEDS: LORazepam 2 MG/1 ML VIAL IV ONE (10:35)
[2024-09-07] MEDS: HEPARIN SOD (PORCINE) 1000 UNIT/ML IV ONE (13:07)
[2024-09-07] MEDS: HEPARIN SOD (PORCINE) 1000 UNIT/ML IV SCH (13:07)
[2024-09-07] MEDS: EPOETIN ALFA 10,000 UNITS/ML VIAL IV ONE (13:07)
[2024-09-07 15:47] VITALS: RESP 20; TEMP 97.2; O2SAT 97
[2024-09-07 16:39] VITALS: BP 123/62; PULSE 88
--- NOTE | 2024-09-07 16:40 | Discharge Summary ---
Date of Service September 07, 2024 Admission HPI Per Admitting Provider Patient is a 38-year-old female with ESRD on HD Saturday and Fridays, chronic systolic CHF with ejection fraction 45%, coronary disease status post PCI, hypertension status post failed renal transplant, diabetes mellitus type 2 and anxiety disorder, Presenting with weakness. Patient states that she missed her last 2 hemodialysis sessions because she was having increased anxiety last Saturday and she had childcare issues yesterday. As per ER physician, patient presented with "feeling horrible", nausea, diarrhea. Chest x-ray: No pulmonary edema, pleural effusion Creatinine 12.1, potassium 5.0 Patient's chief complaint to me was she was having increased anxiety. Denies chest pain, shortness of breath, abdominal pain, nausea or vomiting, fevers or chills. Admission Exam Per Admitting Provider General- oriented x 3, not in distress, speaks in sentences with no effort or accessory muscle use Head- atraumatic Eyes- PERRL, EOMI, anicteric ENT- oropharynx clear Neck- supple, no JVD, no adenopathy, no thyromegaly; carotids +2/2, no bruits appreciated Lungs- clear to auscultation bilaterally, no rales/wheezes Heart- normal rate, regular rhythm; no murmur, no gallop, no rub appreciated Abdomen- normal bowel sounds, nondistended, soft, nontender, no masses or hepatosplenomegaly Extremities- no pretibial edema, no calf tenderness; peripheral pulses intact Neuro- alert, oriented x 3; CN 2-12 grossly intact; motor 5/5 bilaterally;sensation 100% on all extremities; no other gross focal neurologic deficits Skin- warm & dry Principal Diagnosis ESRD on hemodialysis, missed HD, volume overload History of FSGS status post failed renal transplant Anxiety, uncontrolled Discharge Exam General- oriented x 3, not in distress, speaks in sentences with no effort or accessory muscle use Head- atraumatic Eyes- PERRL, EOMI, anicteric ENT- oropharynx clear Neck- supple, no JVD, no adenopathy, no thyromegaly; carotids +2/2, no bruits appreciated Lungs- clear to auscultation bilaterally, no rales/wheezes Heart- normal rate, regular rhythm; no murmur, no gallop, no rub appreciated Abdomen- normal bowel sounds, nondistended, soft, nontender, no masses or hepatosplenomegaly Extremities- no pretibial edema, no calf tenderness; peripheral pulses intact Neuro- alert, oriented x 3; CN 2-12 grossly intact; motor 5/5 bilaterally;sensation 100% on all extremities; no other gross focal neurologic deficits Skin- warm & dry Discharge Data Allergies Allergy/AdvReac Type Severity Reaction Status Date / Time cefaclor Allergy Intermediate Rash Verified 08/10/24 00:08 Cephalosporins Allergy Intermediate Rash Verified 08/10/24 00:08 amoxicillin AdvReac Intermediate VOMITING Verified 08/10/24 00:08 clavulanic acid AdvReac Intermediate VOMITING Verified 08/10/24 00:08 Consultations 09/05/24 18:21 ED Decision to Admit Stat 09/05/24 20:59 Consult Nephrology Routine Consult Psychiatry Routine 09/05/24 21:03 Consult Nephrology Routine Hospital Course (1) ESRD on dialysis: (2) Generalized weakness: 38-year-old female with ESRD on HD Saturday and Fridays, chronic systolic CHF with ejection fraction 45%, coronary disease status post PCI, hypertension status post failed renal transplant, diabetes mellitus type 2 and anxiety disorder presenting with weakness. Patient is stated that she missed her 2 hemodialysis session because she was having increased anxiety. To ER physician she complained of feeling horrible, nausea, diarrhea. To admitting team see complaint of increased anxiety as a reason to come to the hospital. She was managed for the following: ESRD on hemodialysis, Missed HD x 2 [employer], volume overload and electrolyte abnormalities History of FSGS status post failed renal transplant Missed last 2 hemodialysis sessions [employer] due to anxiety, childcare issues Nephrology service consulted.s/p HD today, d/w nephro ok to dc pt from their POV, no need to recheck BMP post dialysis Anxiety uncontrolled pt reports severe anxiety and missing HD due to anxiety. Continue mirtazapine, Bupropion Continue as needed hydroxyzine, Ativan Psychiatry consulted, appreciate recs. History of CAD, stent placement History of cardiorenal syndrome History of systolic CHF Continue aspirin, Plavix, atorvastatin, metoprolol Hypertension: Continue amlodipine Diabetes type 2 diet controlled DVT prophylaxis: SCDs for now Full code Disposition: Lives at home Patient is being discharged to home with following instruction at the point of discharge: Follow-up with your primary care physician within a week time and likely you will need labs CBC/CMP/magnesium/phosphorus. You were evaluated for electrolyte derangements and volume overload secondary to missing hemodialysis. You underwent hemodialysis today. Continue to maintain compliance with your outpatient hemodialysis schedule. Psychiatry evaluated you for your uncontrolled anxiety, they recommend that you closely follow-up with your outpatient psychiatrist Dr. Berger for ongoing management/evaluation of your anxiety. They also recommend that you discontinue the use of THC as this has been associated with increased anxiety. Take your medications as prescribed. Please make sure that you are able to get your medications today by calling your pharmacy before you leave the hospital so that your treatment continuity is not broken. Home Health Attestation I certify that this patient is under my care and that I, or a physicians patient care nursing assistant working with me, had a face to-face encounter that meets the home health [id number] encounter requirements with this patient. The encounter with the patient was in whole, or in part, for the following medical condition, which is the primary reason for home health care (list medical condition): I certify that, based on my findings, the following services are medically necessary home health services: My clinical findings support the need for the above services because: Further, I certify that my clinical findings support that this patient is homebound (i.e. absences from home require considerable and taxing effort and are for medical reasons or episcopal services or infrequently or of short duration when for other reasons) because: Certification for Home Health Services: Based on the above findings, I certify that this patient is confined to the home and needs intermittent alf care, physical therapy and/or speech therapy or continues to need occupational therapy. The patient is under my care, and I have initiated the establishment of the plan of care. This patient will be followed by a physician who will periodically review the plan of care. Total Time Total Time Spent Total Time Spent (In Minutes): 35 Discharge Plan Discharge Items Patient Disposition: Home - Self-Care Reason For Visit: MISSED HD,WEAKNESS Discharge Diagnosis: ESRD on hemodialysis, missed HD, volume overload History of FSGS status post failed renal transplant Anxiety, uncontrolled Activity: Resume your previous activity Non-emergency contact: Primary Care Provider Call non-emergency contact if: you have any medication questions and your symptoms worsen Follow-up/Referrals: Adolph Aldridge MD [Primary Care Provider] - (Date & Time 09/11/2024 3:00 PM Provider: Adolph Aldridge MD Department: [facility], [facility] ) Diet: Dialysis Renal Addtl Attending Provider Instructions: Follow-up with your primary care physician within a week time and likely you will need labs CBC/CMP/magnesium/phosphorus. You were evaluated for electrolyte derangements and volume overload secondary to missing hemodialysis. You underwent hemodialysis today. Continue to maintain compliance with your outpatient hemodialysis schedule. Psychiatry evaluated you for your uncontrolled anxiety, they recommend that you closely follow-up with your outpatient psychiatrist Dr. Berger for ongoing management/evaluation of your anxiety. They also recommend that you discontinue the use of THC as this has been associated with increased anxiety. Take your medications as prescribed. Please make sure that you are able to get your medications today by calling your pharmacy before you leave the hospital so that your treatment continuity is not broken. Pending Studies at Discharge: No Stand-Alone Forms: My [employer], Smoking Cessation Medications and DC Order Prescriptions: Continued carbamazepine 200 mg tablet 200 mg PO AMPM lorazepam 0.5 mg tablet 0.5 mg PO Q8H MDD panic attacks/before dialysis PRN (Reason: Anxiety) hydroxyzine HCl 25 mg tablet 25 mg PO Q6H PRN (Reason: Anxiety) Renal-Rika 0.8 mg Tablet 1 tab PO QAM benzonatate 100 mg capsule 200 mg PO TID PRN (Reason: Cough) medroxyprogesterone [Depo-Provera] 150 mg/mL Suspension 150 mg IM .EVERY 3 MONTHS Rx Instructions: Every 3 months calcium acetate(phosphat bind) 667 mg Capsule 2,001 mg PO UD Rx Instructions: take three tabs ( 2001mg) with each meal and none with snack. metoprolol succinate 50 mg tablet extended release 24 hr 50 mg PO BID amlodipine 2.5 mg tablet 2.5 mg PO QAM varenicline tartrate 1 mg tablet 1 mg PO BID atorvastatin 40 mg tablet 40 mg PO QPM oxycodone-acetaminophen [Percocet] 5-325 mg tablet 1 tab PO Q8H PRN (Reason: pain) Qty: 15 0RF lidocaine 5 % ointment 1 applic topical QID PRN (Reason: pain) Qty: 30 3RF Rx Instructions: Apply to rectal area up to 4 times daily as needed. bupropion HCl 150 mg tablet extended release 24 hr 150 mg PO QAM mirtazapine 7.5 mg tablet 7.5 mg PO HS clopidogrel 75 mg Tablet 75 mg PO QAM Qty: 30 3RF aspirin 81 mg Tablet,Delayed Release (Dr/Ec) 81 mg PO QAM Qty: 30 0RF cyclobenzaprine 5 mg tablet 5 mg PO Q8H Qty: 30 0RF Discharge Orders: Discharge Order (Routine); Ordered 09/07/24 Ordered By: Juwan Jackson Admission Data Admit Date/Time: 09/05/24 21:43 Attending Provider: Juwan Jackson Admit Provider: Edmar Davis Primary Care Provider: Adolph Aldridge Other Providers: Pato Saucedo; Edmar Davis; Leah Nieves; Jameel Wilson; Rishi Morel; Jackie Alarcon; Jena Short; Augie Aaron; Camryn Chavez; Nusrat Cordero; Danny Lemus; Sarah Tripathi; Aly Lizarraga
--- NOTE | 2024-09-07 20:11 | Dialysis Progress Note ---
Date of Service September 07, 2024 Assessment & Plan (1) ESRD on dialysis: Plan: Patient with ESRD on dialysis Saturday. She missed dialysis Saturday and Saturday last week. She presented with weakness and increasing anxiety. Her potassium is high , 5.2; creatinine > 13 today, reflecting missed HD. She is also complaining of chest pain again today as yesterday. >she was resting quietly late in her treatment > I therefore opted to extend it by up to 1 hour as tolerated > UF increased from 2L > 4L hgb 9.5 this AM > will improve w/ UF; continue routine anemia meds as OP Reasonable for d/c after tx today; resume regular OP dialysis (2) Hyperkalemia: Plan: due to missed dialysis. Potassium was 5.2 today. no further lokelma needed; dialyzing today on a 2K bath. 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 not a candidate for parathyroidectomy b/c post operatively for weeks to months patients have to be absolutely compliant w/ calcium supplementation and other medications; she will not be able to do this and risks lifethreatening hypocalcemia without it. continue to monitor at HD. Admission and Anticipated Discharge Date Admission Date: September 05, 2024 Subjective delayed note entered for evaluation of pt today at 1330 on dialysis. pt had refused HD this AM unless she could get IV ativan. tolerating treatment well; c/o chest pain retrosternal nonradiating. no n/v, no f/c; ongoing anxiety which had a role in missed txs last week. Review of Systems 2 Review of Systems: All systems reviewed & are unremarkable except as noted in Subjective Physical Exam 2 Constitutional: well developed and well nourished on RA Eyes: EOM intact bilaterally Respiratory: normal respiratory effort Auscultation: + diminished lung sounds Cardiovascular: Rate/Rhythm: regular rate and regular rhythm Extremities: n o edema Gastrointestinal (Abdomen): Inspection/Auscultation: normal bowel sounds P ercussion/Palpation: abdomen soft; abdomen nontender Musculoskeletal: Extremities: strength 5/5 throughout Skin: no rashes, warm and dry Neurologic: sandy, fluent speech, no tremor Results & Data Vital Signs (Past 12 Hours) Vital Signs Temp Pulse Pulse Pulse Pulse Resp BP 09/07/24 16:38 36.2 C L 88 69 85 20 09/07/24 15:45 36.2 C L 85 20 09/07/24 14:52 36.5 C 81 09/07/24 14:52 36.5 C 81 155/86 H 09/07/24 14:30 77 140/71 09/07/24 14:07 79 09/07/24 14:00 75 154/88 H 09/07/24 13:30 75 154/88 H 09/07/24 13:00 80 209/87 H 09/07/24 12:30 78 196/98 H 09/07/24 12:00 75 201/70 H 09/07/24 11:30 74 210/83 H 09/07/24 11:12 73 199/72 H 09/07/24 11:08 36.5 C 72 09/07/24 08:41 37.0 C 69 18 BP BP BP Pulse Ox O2 Del Method 09/07/24 16:38 93/55 L 118/76 123/62 97 09/07/24 15:45 93/55 L 97 Room Air 09/07/24 14:52 155/86 H 09/07/24 14:52 09/07/24 14:30 09/07/24 14:07 09/07/24 14:00 09/07/24 13:30 09/07/24 13:00 09/07/24 12:30 09/07/24 12:00 09/07/24 11:30 09/07/24 11:12 09/07/24 11:08 09/07/24 08:41 118/76 98 Room Air Laboratory Results 09/07/24 06:09 09/07/24 06:09
--- NOTE | 2024-09-07 21:23 | Electrocardiogram Report ---
Test Reason : Blood Pressure : */* mmHG Vent. Rate : 95 BPM Atrial Rate : 95 BPM P-R Int : 154 ms QRS Dur : 108 ms QT Int : 396 ms P-R-T Axes : 74 160 56 degrees QTcB Int : 497 ms Normal sinus rhythm Anterolateral infarct (cited on or before 21-Mar-2018) Limb lead reversal Abnormal ECG When compared with ECG of 05-Sep-2024 15:58, Limb lead reversal is no longer present Confirmed by Johny Rodriguez ([id number]) on 09/07/2024 9:23:24 PM Referred By: REFERRED SELF Confirmed By: Johny Rodriguez
== END 2024-09-07 17:33 | disposition home or self-care (01) | DRG 291 ==
LOC: 2N 15:37 → ED 15:37 → SUATTDRO 18:15 → 2N 20:49 → OBSVTOIN 21:43

== ENCOUNTER 2024-09-10 13:57 | Inpatient (IN) ==
[2024-09-10 15:45] LABS: Alanine Aminotransferase 117 U/L (7-52); Albumin Globulin Ratio 1.6 (0.9-2); Albumin Level 3.6 gm/dl (3.4-5.0); Alkaline Phosphatase 79 U/L (34-104); Anion Gap 19 (3-11); Aspartate Aminotransferase 166 U/L (13-39); Bilirubin,Total 0.9 mg/dl (0.2-1.0); Blood Urea Nitrogen 73 mg/dl (6-23); Calcium 9.1 mg/dl (8.6-10.3); Carbon Dioxide 23 mmol/L (21-32); Chloride 83 mmol/L (98-107); Globulin 2.2 gm/dl (2.5-4.0); Glucose 129 mg/dl (70-99(Fasting)); Potassium 5.3 mmol/L (3.5-5.1); Sodium 125 mmol/L (136-145); Total Protein 5.8 gm/dl (6.0-8.3)
[2024-09-10 15:47] LABS: Hematocrit (blood only) 28.7 % (37.0-47.0); Hemoglobin 9.7 g/dl (12.0-16.0); INR 1.2 (0.9-1.1); Mean Corpuscular Hemoglobin 31.3 pg (25.0-34.0); Mean Corpuscular Hgb Conc 33.8 g/dL (32.0-36.0); Mean Corpuscular Volume 92.6 fL (80.0-100.0); Partial Thromboplastin Ratio 1.3; Partial Thromboplastin Time 35 Seconds (21-31); Platelet Count 29 K/uL (130-400); RDW Coefficient of Variation 16.7 % (11.5-14.5); RDW Standard Deviation 56.7 fL (36.4-46.3); White Blood Count 4.06 K/ul (4.8-10.8)
[2024-09-10 15:57] LABS: Basophils # (auto) 0.01 K/uL (0.00-0.20); Basophils % (auto) 0.2 %; Echinocytes 2+; Immature Granulocytes # (auto) 0.05 K/uL (0.01-0.20); Immature Granulocytes % (auto) 1.2 %; Lymphocytes # (auto) 0.23 K/uL (1.20-3.40); Lymphocytes % (auto) 5.7 %; Monocytes # (auto) 0.42 K/uL (0.11-0.59); Monocytes % (auto) 10.3 %; Neutrophils # (auto) 3.35 K/uL (1.40-6.50); Neutrophils % (auto) 82.6 %; Ovalocytes 2+; Platelet Estimate Signific. Decreased (Normal); Polychromasia 1+
--- NOTE | 2024-09-10 16:42 | XRay Report ---
EXAM: Radiograph of the Chest 1 View INDICATION: Shortness of breath. TECHNIQUE: Frontal view of the chest. COMPARISON: 09/05/2024 FINDINGS: Lungs and pleural spaces: Stable mild chronic prominent interstitial markings accentuated by shallow inspiration. There may be a 2.9 x 2.1 cm developing infiltrate in the left apex versus summation shadow. No pleural effusion or pneumothorax. Heart: Stable large cardiac shadow. Mediastinum: Normal contour. Bones/joints: No fracture, erosion or dislocation. Soft tissues: Stable brachiocephalic and right axillary stents. Upper abdomen: No abnormality noted. IMPRESSION: There may be a 2.9 x 2.1 cm developing infiltrate in the left apex versus summation shadow. Otherwise unchanged. ACT 112: Negative or not required by law. Electronically signed by Ksenia Mejia 09-10-2024 4:42 PM
[2024-09-10 16:56] LABS: Adenovirus PCR Not Detected (NotDetected); Bordetella parapertussis PCR Not Detected (NotDetected); Bordetella pertussis PCR Not Detected (NotDetected); Chlamydia pneumoniae PCR Not Detected (NotDetected); Coronavirus 229E PCR Not Detected (NotDetected); Coronavirus CoV-2 (COVID19)PCR Not Detected (NotDetected); Coronavirus HKU1 PCR Not Detected (NotDetected); Coronavirus NL63 PCR Not Detected (NotDetected); Coronavirus OC43PCR Not Detected (NotDetected); Human Metapneumovirus PCR Not Detected (NotDetected); Influenza A PCR Not Detected (NotDetected); Influenza B PCR Not Detected (NotDetected); Mycoplasma pneumoniae PCR Not Detected (NotDetected); Parainfluenza Virus 1 PCR Not Detected (NotDetected); Parainfluenza Virus 2 PCR Not Detected (NotDetected); Parainfluenza Virus 3 PCR Not Detected (NotDetected); Parainfluenza Virus 4 PCR Not Detected (NotDetected); Respiratory Syncytial VirusPCR Not Detected (NotDetected); Rhinovirus/Enterovirus PCR Not Detected (NotDetected)
--- NOTE | 2024-09-10 17:05 | History & Physical Report ---
Date of Service September 10, 2024 Assessment & Plan (1) ESRD on dialysis: (2) Generalized weakness: (3) Chronic systolic CHF (congestive heart failure): (4) Hypertension, essential: (5) Chest pain: (6) Stented coronary artery: (7) Ischemic cardiomyopathy: (8) Bipolar disorder: Plan Patient is a 38-year-old female with extensive past medical history including ESRD on dialysis who presented to the ED on 09/10/2024 with complaints of trouble ambulating and weakness, found to have a critically low platelet count of 29 Severe thrombocytopenia: Unclear cause, transfuse 1 unit of platelets, consult heme-onc for further recommendations New thrombocytopenia and transaminitis, possibly secondary to liver issues Check D-dimer/fibrinogen/heparin PF4 antibody to rule out ASHLIE Hold aspirin and Plavix, trend CBC Hx ESRD on dialysis M/W/F Hyponatremia Chronic noncompliance, missed session on 09/09/2024 NA 125, per nephrology, likely secondary to fluid overload, no acute intervention tonight Will continue planned dialysis session tomorrow on 09/11 Transaminitis: Could be viral or medication induced, trend LFTs daily, avoid hepatotoxic medications Consider abdominal ultrasound if no improvement Abnormal CXR - There may be a 2.9 x 2.1 cm developing infiltrate in the left apex versus summation shadow. Otherwise unchanged. - recommend to repeat CXR after HD tmrw Hx CHFEF 35-40% Continue metoprolol Hx asthma: Continue home inhalers Hx depression with anxiety Hx bipolar disorder Continue lorazepam/mirtazapine/Wellbutrin Hx [id number]: Last A1c on 03/2024 5.6 A total of 60 minutes was spent on chart review/reviewing diagnostic studies/discussion with consultants/facilitating plan of care Full code DVT prophylaxis: SCDs, avoid AC with thrombocytopenia History of Present Illness Chief Complaint: Weakness Primary Care Provider: Adolph Aldridge MD Ms. Alexandra Arguello is a 38y/o F with PMHx of diet-controlled DM type II, ESRD on hemodialysis, history of acute thrombosis of brachiocephalic vein, HTN, cardiomegaly, GERD, restless leg syndrome, history of chest pains, history of syncope and collapse, history of migraine, history of anemia [baseline Hgb ~9- 11], history of transplant rejection, history of depression with anxiety, bipolar disorder who presents to the ED on 09/10/2024 with complaints of bilateral arm pain and generalized weakness. Patient also reports intermittent fevers at home and flulike symptoms. Denies any chest pain or shortness of breath. On exam, patient is lethargic but answers questions appropriately reports having severe pain. Patient reported that she was not feeling good and weak she did not go to dialysis on 09/09/2024. The weakness worsened this morning. She denies any nausea/vomiting/diarrhea/abdominal pain On arrival to the ED, labs remarkable for WBC 4, platelets 29, INR 1.2, NA 125, creatinine 5.3, chloride 83, anion gap 19, BUN 73, creatinine 10.5, glucose 129, AST 166, ALT 117 Respiratory panel negative Chest x-ray with possible infiltrate versus shadowing The patient will be admitted for management of severe thrombocytopenia and hyponatremia Allergies Allergy/AdvReac Type Severity Reaction Status Date / Time cefaclor Allergy Intermediate Rash Verified 09/10/24 17:09 Cephalosporins Allergy Intermediate Rash Verified 09/10/24 17:09 amoxicillin AdvReac Intermediate VOMITING Verified 09/10/24 17:09 clavulanic acid AdvReac Intermediate VOMITING Verified 09/10/24 17:09 Home Medications Medication Instructions Recorded Confirmed Type carbamazepine 200 mg tablet 200 mg PO AMPM 06/08/23 09/10/24 History hydroxyzine HCl 25 mg tablet 25 mg PO Q6H PRN Anxiety 06/08/23 09/10/24 History lorazepam 0.5 mg tablet 0.5 mg PO Q8H PRN Anxiety 06/08/23 09/10/24 History vitamin B complex-vitamin C-folic 1 tab PO QAM 06/08/23 09/10/24 History acid 0.8 mg tablet (Renal-Rika) benzonatate 100 mg capsule 200 mg PO TID PRN Cough 08/29/23 09/10/24 History calcium acetate(phosphat bind) 667 2,001 mg PO UD 08/29/23 09/10/24 History mg capsule medroxyprogesterone 150 mg/mL 150 mg IM .EVERY 3 MONTHS 08/29/23 09/10/24 History intramuscular suspension (Depo-Provera) lidocaine 5 % topical ointment 1 applic topical QID PRN pain #30 04/11/24 09/10/24 Rx grams bupropion HCl 150 mg 24 hr tablet, 150 mg PO QAM 04/17/24 09/10/24 History extended release mirtazapine 7.5 mg tablet 7.5 mg PO HS 04/17/24 09/10/24 History aspirin 81 mg tablet,delayed 81 mg PO QAM #30 tabs 05/09/24 09/10/24 Rx release clopidogrel 75 mg tablet 75 mg PO QAM #30 tabs 05/09/24 09/10/24 Rx amlodipine 2.5 mg tablet 2.5 mg PO QAM 07/24/24 09/10/24 History atorvastatin 40 mg tablet 40 mg PO QPM 07/24/24 09/10/24 History metoprolol succinate 50 mg 50 mg PO BID 07/24/24 09/10/24 History tablet,extended release 24 hr oxycodone-acetaminophen 5 mg-325 1 tab PO Q8H PRN pain #15 tabs 08/10/24 09/10/24 Rx mg tablet (Percocet) cyclobenzaprine 5 mg tablet 5 mg PO Q8H PRN Muscle Spasm 09/10/24 09/10/24 History varenicline tartrate 1 mg tablet 1 mg PO BID 09/10/24 09/10/24 History Past Med/Surg History Problem List (Updated 09/05/24 @ 18:28 by Mayra Calle MD) ESRD on dialysis (Acute) Generalized weakness (Acute) Pelvic pain Hyperkalemia Bilateral pleural effusion 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 Pericardial effusion Abdominal pain, right lower quadrant (Acute) Lower abdominal pain (Acute) Chronic systolic CHF (congestive heart failure) Hypertension, essential Chest pain (Acute) Chronic chest pain Chest pain (Acute) HTN, goal below 130/80 Dyslipidemia, goal LDL below 70 Stented coronary artery Premature coronary artery disease Chest pain at rest Chest pain (Acute) Rhinovirus infection Abnormal laboratory test (Acute) Coronary artery disease due to calcified coronary lesion Dialysis complication (Acute) Syncope (Acute) Acute hyperkalemia (Acute) Symptomatic anemia (Acute) Episode of syncope Rectal bleeding Chest pain (Acute) ESRD on dialysis (Acute) Acute hyperkalemia (Acute) Elevated troponin (Acute) Chest pain not due to acute coronary syndrome (Acute) Bleeding external hemorrhoids (Acute) Non-compliance (Acute) Fluid overload (Acute) Uremia (Acute) Anemia (Acute) Depression (Acute) Weakness (Acute) Sleep deprivation (Acute) Hallucinations (Acute) Anemia (Acute) Dialysis patient (Acute) Medical non-compliance (Acute) Acute uremia (Acute) Shortness of breath (Acute) Elevated troponin (Acute) Acute hyperkalemia (Acute) SOB (shortness of breath) (Acute) SOB (shortness of breath) (Acute) Acute uremia (Acute) Somnolence (Acute) Medical non-compliance (Acute) Elevated troponin (Acute) Dialysis patient (Acute) Renal failure (Acute) Hyperkalemia (Acute) Thrombocytopenia COVID-19 (Acute) Renal osteodystrophy Anemia in ESRD (end-stage renal disease) ESRD (end stage renal disease) on dialysis (Acute) Anxiety Depression Major depressive disorder, recurrent, in partial remission Anemia of chronic disease Status post fall last fallNovember 2022 > nasal fx / knee pain, no surgery for either injury > resolved per pt report Prolonged QT interval (Acute) no cardio Anemia due to end stage renal disease (Acute) FSGS (focal segmental glomerulosclerosis) (Chronic) DX INITIALLY 2012 (CAUSING ESRD 2012) Medical History HTN (hypertension) Ischemic cardiomyopathy Status post insertion of drug-eluting stent into left anterior descending (LAD) artery Coronary artery disease ESRD (end stage renal disease) on dialysis Substernal chest pain Atypical chest pain Anemia Atypical chest pain CHF (congestive heart failure) Depression with anxiety DM2 (diabetes mellitus, type 2) Mood disorder Anxiety disorder, unspecified Abnormal chest xray Elevated lactic acid level Transaminitis Pneumonia Metabolic encephalopathy Acute non-ST elevation myocardial infarction (NSTEMI) Pulmonary edema Acute hyperkalemia Acute alteration in mental status Renal failure (ARF), acute on chronic Encephalopathy Facial fracture GI bleed ESRD (end stage renal disease) on dialysis Symptomatic anemia Tobacco abuse DVT prophylaxis Fistula right arm (currently being used) and left arm Dialysis patient SATURDAY/SAT/SATURDAY AT [facility] GERD (gastroesophageal reflux disease) Bipolar disorder Restless leg syndrome Peripheral neuropathy Asthma rare res inh use History of abnormal cervical Papanicolaou smear Elevated troponin Acute electrocardiogram changes Surgical History S/P right coronary artery (RCA) stent placement History of heart artery stent H/O eye surgery LASER SURGERY LEFT History of surgery left arm d/t clot in arm from AV fistula use @ [facility] History of surgery (~09/09/20) perm cath > since removed History of colonoscopy Kidney transplant recipient 2013 AT [facility] History of tooth extraction three TOOTH History of cardiac cath 2016 NO STENTS AVF (arteriovenous fistula) bilat upper arms ---currently using right for dialysis Family History Grandmother Hx of CABG Mother Diabetes Father Crohn's disease Grandfather (Maternal) Diabetes Uncle Diabetes Grandmother (Maternal) Family history of reaction to anesthesia difficulty waking with colonoscopy Social History Smoking Status: Never smoker Tobacco Type: Cigarettes Cigarettes Per Day: 20; Second Hand Exposure: No; Do You Dip or Chew Tobacco: No; Hx Alcohol Use: No Hx Substance Use: No Preferred Language: Macedonian Communication Ability: Effective It Telecom Technician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 Beliefs That Will Affect Care: None marital status: Single Current Living Situation: Family Current Living Situation Comment: with grandparents How many Children do You have: 3 Feels Safe at Home: Yes Assistive Devices: None Review of Systems Review of Systems: All systems reviewed & are unremarkable except as noted in HPI & below Physical Exam Physical Exam: Lethargic on exam but arousable Constitutional: WD/WN, vitals as above + ill appearing Eyes: PERRL, conjunctivae normal, anicteric sclerae ENMT: external ear and nose normal, oropharynx normal Neck: trachea midline, no thyromegaly Respiratory: normal respiratory effort, lungs clear to auscultation Cardiovascular: RRR, no murmur, no edema Gastrointestinal (Abdomen): normal bowel sounds, soft, nontender, no hepatosplenomegaly Musculoskeletal: no cyanosis or clubbing, extremities motor strength 5/5 Skin: no rashes, warm and dry Neurologic: PERRL, EOMI, accommodation nl, no face palsy, no dysarthria Psychiatric: A+Ox3, euthymic affect Lymphatic: no cervical or axillary lymphadenopathy Results & Data Results & Data Vital Signs (Past 12 Hours) Vital Signs Temp Pulse Pulse Resp BP BP Pulse Ox 09/10/24 16:02 94 H 09/10/24 16:00 94 H 21 156/88 H 96 09/10/24 15:50 94 H 21 152/85 H 94 09/10/24 14:06 37.1 C 96 H 20 121/76 100 O2 Del Method 09/10/24 16:02 09/10/24 16:00 09/10/24 15:50 Room Air 09/10/24 14:06 Room Air Diagnostic Findings Laboratory Results WBC 4.06 K/ul (4.8-10.8) L 09/10/24 15:04 RBC 3.10 M/uL (4.20-5.40) L 09/10/24 15:04 Hgb 9.7 g/dl (12.0-16.0) L 09/10/24 15:04 Hct 28.7 % (37.0-47.0) L 09/10/24 15:04 MCV 92.6 fL (80.0-100.0) 09/10/24 15:04 MCH 31.3 pg (25.0-34.0) 09/10/24 15:04 MCHC 33.8 g/dL (32.0-36.0) 09/10/24 15:04 RDW Std Deviation 56.7 fL (36.4-46.3) H 09/10/24 15:04 RDW Coeff of Laith 16.7 % (11.5-14.5) H 09/10/24 15:04 Plt Count 29 K/uL (130-400) L* 09/10/24 15:04 Immature Gran % (Auto) 1.2 % 09/10/24 15:04 Neut % (Auto) 82.6 % 09/10/24 15:04 Lymph % (Auto) 5.7 % 09/10/24 15:04 Howard % (Auto) 10.3 % 09/10/24 15:04 Eos % (Auto) 0.0 % 09/10/24 15:04 Baso % (Auto) 0.2 % 09/10/24 15:04 Neut # (Auto) 3.35 K/uL (1.40-6.50) 09/10/24 15:04 Lymph # (Auto) 0.23 K/uL (1.20-3.40) L 09/10/24 15:04 Howard # (Auto) 0.42 K/uL (0.11-0.59) 09/10/24 15:04 Eos # (Auto) 0.00 K/uL (0.00-0.50) 09/10/24 15:04 Baso # (Auto) 0.01 K/uL (0.00-0.20) 09/10/24 15:04 Immature Gran # (Auto) 0.05 K/uL (0.01-0.20) 09/10/24 15:04 Platelet Estimate Signific. Decreased (Normal) L 09/10/24 15:04 Polychromasia 1+ 09/10/24 15:04 Ovalocytes 2+ 09/10/24 15:04 Echinocytes 2+ 09/10/24 15:04 PT 13.0 Seconds (9.0-12.0) H 09/10/24 15:04 INR 1.2 (0.9-1.1) H 09/10/24 15:04 APTT 35 Seconds (21-31) H 09/10/24 15:04 PTT Ratio 1.3 09/10/24 15:04 Sodium 125 mmol/L (136-145) L 09/10/24 15:04 Potassium 5.3 mmol/L (3.5-5.1) H 09/10/24 15:04 Chloride 83 mmol/L (98-107) L 09/10/24 15:04 Carbon Dioxide 23 mmol/L (21-32) 09/10/24 15:04 Anion Gap 19 (3-11) H 09/10/24 15:04 BUN 73 mg/dl (6-23) H 09/10/24 15:04 Creatinine 10.50 mg/dl (0.6-1.2) H* 09/10/24 15:04 Est Cr Clr Drug Dosing Not Reportable 09/10/24 15:04 eGFR 4.40 09/10/24 15:04 BUN/Creatinine Ratio 7.0 (10-20) L 09/10/24 15:04 Glucose 129 mg/dl (70-99(Fasting)) H 09/10/24 15:04 Calcium 9.1 mg/dl (8.6-10.3) 09/10/24 15:04 Total Bilirubin 0.9 mg/dl (0.2-1.0) 09/10/24 15:04 AST 166 U/L (13-39) H 09/10/24 15:04 ALT 117 U/L (7-52) H 09/10/24 15:04 Alkaline Phosphatase 79 U/L (34-104) 09/10/24 15:04 Total Protein 5.8 gm/dl (6.0-8.3) L 09/10/24 15:04 Albumin 3.6 gm/dl (3.4-5.0) 09/10/24 15:04 Globulin 2.2 gm/dl (2.5-4.0) L 09/10/24 15:04 Albumin/Globulin Ratio 1.6 (0.9-2) 09/10/24 15:04 Adenovirus (PCR) Not Detected (NotDetected) 09/10/24 15:56 B. pertussis DNA (PCR) Not Detected (NotDetected) 09/10/24 15:56 B.parapertussis DNA PCR Not Detected (NotDetected) 09/10/24 15:56 C. pneumoniae DNA (PCR) Not Detected (NotDetected) 09/10/24 15:56 Coronavirus OC43 (PCR) Not Detected (NotDetected) 09/10/24 15:56 Coronavirus HKU1 (PCR) Not Detected (NotDetected) 09/10/24 15:56 Coronavirus 229E (PCR) Not Detected (NotDetected) 09/10/24 15:56 SARS-CoV-2 (PCR) Not Detected (NotDetected) 09/10/24 15:56 Coronavirus NL63 (PCR) Not Detected (NotDetected) 09/10/24 15:56 Human Metapneumovir PCR Not Detected (NotDetected) 09/10/24 15:56 Influenza Type A (PCR) Not Detected (NotDetected) 09/10/24 15:56 Influenza Type B (PCR) Not Detected (NotDetected) 09/10/24 15:56 M. pneumoniae (PCR) Not Detected (NotDetected) 09/10/24 15:56 Parainfluenza 1 (PCR) Not Detected (NotDetected) 09/10/24 15:56 Parainfluenza 2 (PCR) Not Detected (NotDetected) 09/10/24 15:56 Parainfluenza 3 (PCR) Not Detected (NotDetected) 09/10/24 15:56 Parainfluenza 4 (PCR) Not Detected (NotDetected) 09/10/24 15:56 RSV (PCR) Not Detected (NotDetected) 09/10/24 15:56 Entero/Rhino (PCR) Not Detected (NotDetected) 09/10/24 15:56 Impressions Chest X-Ray 09/10/24 16:23 EXAM: Radiograph of the Chest 1 View INDICATION: Shortness of breath. TECHNIQUE: Frontal view of the chest. COMPARISON: 09/05/2024 FINDINGS: Lungs and pleural spaces: Stable mild chronic prominent interstitial markings accentuated by shallow inspiration. There may be a 2.9 x 2.1 cm developing infiltrate in the left apex versus summation shadow. No pleural effusion or pneumothorax. Heart: Stable large cardiac shadow. Mediastinum: Normal contour. Bones/joints: No fracture, erosion or dislocation. Soft tissues: Stable brachiocephalic and right axillary stents. Upper abdomen: No abnormality noted. IMPRESSION: There may be a 2.9 x 2.1 cm developing infiltrate in the left apex versus summation shadow. Otherwise unchanged. ACT 112: Negative or not required by law. Electronically signed by Ksenia Mejia 09-10-2024 4:42 PM Supervising Physician Co-Signing Physician Notes Pt seen and examined by me, care coordinated with James Osorio. ANGÉLICA, pls refer to her note above for further detail. 38y/o F with hx of diet-controlled DM type II, ESRD on hemodialysis, history of acute thrombosis of brachiocephalic vein, HTN, cardiomegaly, GERD, restless leg syndrome, history of chest pains, history of syncope and collapse, history of migraine, history of anemia [baseline Hgb ~9-11], history of transplant rejection, history of depression with anxiety, bipolar disorder who presents to the ED on 09/10/2024 with complaints of bilateral arm pain and generalized weakness. Patient also reports intermittent fevers at home and flulike symptoms. Denies any chest pain or shortness of breath. On exam, patient is drowsy but answers questions appropriately reports having pain all over her body. Patient missed dialysis on 09/09/2024. Reports vomiting, diarrhea on Saturday. Labs WBC 4, platelets 29, NA 125, anion gap 19, AST 166, ALT 117 Respiratory panel negative. Chest x-ray with possible infiltrate versus shadowing. Severe thrombocytopenia and hyponatremia. Pt appears drowsy but is able to answer appropriately. lungs CTAB, heart sounds regular, abdomen soft, mildly tender to palp., no LE edema, moves extremities. Will obtain blood cultx, stool pcr. Recommend to repeat CXR after HD. Discussed w/ nephrology - plan for HD tmrw. Also discussed her AV fistula - per air surveillance operator - did not hear from her outpt RNs any issues w/ fistula. Will obtain Peripheral smear, thrombocytopenia work up, hematology consult. LFTs also elevated - will repeat and monitor. Lyme panel, tickborne panel also ordered (even though lower suspicion given winter season). Cont. to closely monitor. MD Rachna (5) Chest pain Chest pain type: unspecified Qualified Code(s): R07.9 - Chest pain, unspecified
[2024-09-10] MEDS ORDERED: SODIUM CHLORIDE 0.9% 100 ML IV PRN (17:06)
[2024-09-10] MEDS ORDERED: SODIUM CHLORIDE 0.9% 50 ML IV PRN (17:06)
--- OUTSIDE RECORDS SUMMARY | 2024-09-10 20:45 | External Medical Summary | Summary of Care ---
Author Name Unknown Organization [facility] Address [address] [place] [address] Phone [phone] Care Team Providers Care Critical Care Rn Name Role Phone Adolph Aldridge MD Primary Care Provider [phone] Reason for Visit * Reason Onset Date Comments Hospital Follow-Up 09/08/2024 Encounter Details Date Type Department Care Team (Late st Contact Info) Description 09/08/2024 Telephone [facility] [address] [place] [address] Adolph Aldridge MD [address] [place] [address] Hospital Follow-Up Allergies Active Allergy Reactions Criticality Noted Date Comments Amoxicillin Low 01/27/2021 Other reaction(s): VOMITING Cefaclor Rash Low 11/23/2011 Cephalosporins Rash Low 05/16/1999 documented as of this encounter (statuses as of 09/10/2024) Medications Calcium Acetate (Phos Binder) 667 MG Oral Capsule (Phoslo) Take 3 Caps by mouth three times a day with meals. 270 Cap 3 11/04/19 Active Renal Vitamin 0.8 MG Oral Tablet [...] Tablet 03/14/20 22 Active OneTouch Delica Plus [id number] ons:DM type 2 with diabetic peripheral neuropathy [...] EVERY 6 HOURS NEEDED FOR ANXIETY 02/12/20 Active Dexcom G7 Bin Filler Device USE DAILY TO CHECK BLOOD SUGARS [...] as of this encounter (statuses as of 09/10/2024) Active Problems Problem Noted Date Diagnosed Date Chronic total occlusion of coronary artery 06/09 S/P primary angioplasty with coronary stent 04/27 Bleeding hemorrhoids 05/21/2024 Coronary artery disease involving [place] coronar y artery 05/21/2024 HFrEF (heart failure [...] as of this encounter (statuses as of 09/10/2024) Resolved Problems Problem Noted Date Diagnosed Date [...] and PP sugars <120. Report levels to [facility] department weekly. 10. Advised patient that Glyburide, Metformin, and insulin may be safely used during for the control of blood sugar levels. Alexandra will begin her insulin therapy today. 11. Dietary consult to be done to instruct patient on appropriate nutrition and diet to aid in control of blood sugars. 12. Recommend urine culture each trimester. 13. Recommend [facility] ultrasound for limited anatomy at 12-14 weeks, for full anatomy at 18-20 weeks, and for echocardiography at 22-24 weeks. 14. Start testing with twice weekly NST and weekly MATTHEW beginning at 32 weeks or earlier if any evidence of uncontrolled blood sugars, renal abnormalities, or HTN. 15. Recommend [facility] growth ultrasound every 4 weeks after 24 [...] Marva CURRIE, contaminated patient to repepat OB [facility] 03/19/2011 01/29/20 17 Overview (08/09/2011): 03/19/2011 Needs enrolled in [facility] active. Marva RN- Enrolled [...] scheduled for 3 tubal consent signed 08/31/2011 J.Park RN Severe obesity with body mas s index [...] as of this encounter (statuses as of 09/10/2024) Immunizations Name Administration Dates Next Due COVID-19 [...] Telephone Encounter - Kayy Reed OSA - 09/10/2024 8:46 AM EST Phone went to voicemail which is full. Unable to LMVM. Letter sent. 09/10/2024 * Telephone Encounter - Jeny Anna RN - 09/08/2024 8:38 AM EST Alexandra Argulelo was discharged from [facility] on 09/07/24. Please see the following recommendations for follow up care. Follow-up with your primary care physician within a week time and likely you will need labs CBC/CMP/magnesium/phosphorus. documented in this encounter Plan of Treatment Upcoming Encounters Date Type Department Care Team (Late st Contact Info) Description 09/11/2024 3:00 PM EST [facility] [address] [place] [phone] Adolph Aldridge MD [address] [facility] [place] [id number] 10/06/2024 1:40 PM EST [facility] [address] [facility] [place] [phone] Adolph Aldridge MD [address] [facility] [place] [address] 04/01/2025 2:40 PM EDT Telemedicine Neurology [address] [place] [phone] Eros Marks, DO [address] [facility] [place] [phone] Scheduled Procedures Name Priority Associated Diagnoses Date/Ti [...] this encounter Medical Devices Implanted Type Area Acoustical Carpenter Device Identifier Shelf Expiration Date Model / Serial / Lot Stent Protege Gps [id number] - [id number] Implanted:Qty : 1 on 09/29/2020 by Carmelo Ramos MD at [place] [facility] [place] Left: Chest [employer] : VASCULAR [id number] 09/20/2022 [id number] -40-80 / / [id number] Stent Viab [id number] - [id number] Implanted:Qty : 1 on 04/16/2023 by Carmelo Ramos MD at [place] [facility] [place] Right: Subclavian [employer] [id number] 01/26/2026 [id number] / [id number] / [id number] Stent Synergy Xd Mr [id number] - [id number] Implanted:Qty : 1 on 06/09/2024 by Diamond Mcgowan MD at [facility] [place] [employer] [id number] 01/21/2026 [id number] / / [id number] documented as of this encounter Advance Directives [...] Advance Directives occurred with: Patient Care Teams Critical Care Rn Relationship Specialty Start Date End Date Adolph Aldridge MD PCP - General Family Medicine 10/21/18 documented as of this encounter
--- OUTSIDE RECORDS SUMMARY | 2024-09-10 20:45 | External Medical Summary | Summary of Care ---
Author Name Unknown Organization [facility] Address [address] [place] [address] Phone [phone] Care Team Providers Care Paperboard Box Maker Name Role Phone Adolph Aldridge MD Primary Care Provider [phone] Reason for Visit * Reason Onset Date Comments Hospital Follow-Up 09/08/2024 Encounter Details Date Type Department Care Team (Late st Contact Info) Description 09/08/[address] [facility] [address] [place] [address] Adolph Aldridge MD [address] [place] [address] Hospital Follow-Up Allergies Active Allergy [...] Tablet 03/14/20 22 Active OneTouch Delica Plus Zneqya10JWwldkznm ons:DM type 2 with diabetic peripheral neuropathy [...] A1c goal of less than 7.0% ([facility]) Use to check sugars continuously. E 11.9 change every 10 days 3 Each 01/06/20 24 Active hydrOXYzine HCl 25 MG Oral Tablet TAKE 1 TABLET BY MOUTH EVERY 6 HOURS NEEDED FOR ANXIETY 02/12/20 Active Dexcom G7 Assembler Wire Mesh Gate Device USE DAILY TO CHECK BLOOD SUGARS [...] Bleeding hemorrhoids 05/21/2024 Coronary artery disease involving [place] coronar y artery 05/21/2024 HFrEF (heart failure [...] Marva CURRIE, contaminated patient to repepat OB [facility] 03/19/2011 01/29/20 17 Overview (08/09/2011): 03/19/2011 Needs enrolled in [facility] [...] RN - 09/08/2024 8:38 AM EST Alexandra Arguello was discharged from [facility] on 09/07/24. Please see the following recommendations for follow up care. Follow-up with your primary care physician within a week time and likely you will need labs CBC/CMP/magnesium/phosphorus. documented in this encounter Plan of Treatment Upcoming Encounters Date Type Department Care Team (Late st Contact Info) Description 09/11/2024 3:00 PM EST [facility] [address] [place] [phone] Adolph Aldridge MD [address] [facility] [place] [id number] 10/06/2024 1:40 PM EST [facility] [address] [facility] [place] [phone] Adolph Aldridge MD [address] [facility] [place] [address] 04/01/2025 2:40 PM EDT Telemedicine Neurology [address] [place] [phone] Eros Marks, DO [address] [facility] [place] [phone] Scheduled Procedures Name Priority Associated Diagnoses Date/Ti [...] this encounter Medical Devices Implanted Type Area Geospatial Applications Developer Device Identifier Shelf Expiration Date Model / Serial / Lot Stent Protege Gps [id number] - [id number] Implanted:Qty : 1 on 09/29/2020 by Carmelo Ramos MD at [place] [facility] [place] Left: Chest [employer] : VASCULAR [id number] 09/20/2022 [id number] -40-80 / / [id number] Stent Viab [id number] - [id number] Implanted:Qty : 1 on 04/16/2023 by Carmelo Ramos MD at [place] [facility] [place] Right: Subclavian [employer] [id number] 01/26/2026 [id number] / [id number] / [id number] Stent Synergy Xd Mr 2.98t56tw - [id number] Implanted:Qty : 1 on 06/09/2024 by Diamond Mcgowan MD at [facility] [place] [employer] [id number] 01/21/2026 [id number] / / [id number] documented as of this encounter Advance Directives [...] Advance Directives occurred with: Patient Care Teams Paperboard Box Maker Relationship Specialty Start Date End Date Adolph Aldridge MD PCP - General Family Medicine 10/21/18 documented as of this encounter
--- OUTSIDE RECORDS SUMMARY | 2024-09-10 20:45 | External Medical Summary | Summary of Care ---
Author Name Unknown Organization [facility] Address [address] [place] [address] Phone [phone] Care Team Providers Care Quality Control Inspector Name Role Phone Adolph Aldridge MD Primary Care Provider [phone] Encounter Details Date Type Department Care Team (Late st Contact Info) Description 09/08/2024 Population Health External Data Unspecified Department Allergies Active Allergy Reactions Criticality Noted Date Comments Amoxicillin Low 01/27/2021 Other reaction(s): VOMITING Cefaclor Rash Low 11/23/2011 Cephalosporins Rash Low 05/16/1999 documented as of this encounter (statuses as of 09/08/2024) Medications Calcium Acetate (Phos Binder) 667 MG [...] Tablet 03/14/20 22 Active OneTouch Delica Plus Ncbadj60URaowsmce ons:DM type 2 with diabetic peripheral neuropathy [...] hemoglobin A1c goal of less than 7.0% ([facility]) Use to check sugars continuously. E 11.9 change every 10 days 3 Each 11 01/06/20 24 Active hydrOXYzine HCl 25 MG Oral Tablet TAKE 1 TABLET BY MOUTH EVERY 6 HOURS NEEDED FOR ANXIETY 02/12/20 24 Active Dexcom G7 Quality Assurance Monitor Body Device USE DAILY TO CHECK BLOOD SUGARS [...] as of this encounter (statuses as of 09/08/2024) Active Problems Problem Noted Date Diagnosed Date Chronic total occlusion of coronary artery 06/09 S/P primary angioplasty with coronary stent 04/27 Bleeding hemorrhoids 05/21/2024 Coronary artery disease involving [place] coronar y artery 05/21/2024 HFrEF (heart failure [...] as of this encounter (statuses as of 09/08/2024) Resolved Problems Problem Noted Date Diagnosed Date Resolved Date Acute blood loss anemia 05/21/2024 09/2 03/2024 Hyperkalemia 05/21/2024 05/23/2024 Admission for dialysis 08/30/202305/23 Food insecurity 02/04/2023 08/08/2023 Overview: Per [facility] Pharmacy Protocol Major depressive disorder with single [...] sugars, renal abnormalities, or HTN. 15. Recommend [facility] growth ultrasound every 4 weeks after [...] as of this encounter (statuses as of 09/08/2024) Immunizations Name Administration Dates Next Due COVID-19 [...] Description 09/11/2024 3:00 PM EST Office [facility] [phone] Adolph Aldridge MD [address] [place] [id number] 10/06/2024 1:40 PM EST [facility] [address] [place] [place] [phone] Adolph Aldridge MD [address] [facility] [place] [id number] 04/01/2025 2:40 PM EDT Telemedicine Neurology [address] [place] [phone] Eros Marks, DO [address] [place] [address] Scheduled Procedures Name Priority Associated Diagnoses Date/Ti [...] this encounter Medical Devices Implanted Type Area Genomics Scientist Device Identifier Shelf Expiration Date Model / Serial / Lot Stent Protege Gps [id number] - [id number] Implanted:Qty : 1 on 09/29/2020 by Carmelo Ramos MD at OR [facility] Left: Chest [employer] : VASCULAR [id number] 09/20/2022 [id number] -40-80 / / [id number] Stent Viab [id number] - [id number] Implanted:Qty : 1 on 04/16/2023 by Carmelo Ramos MD at OR [facility] Right: Subclavian [employer] [id number] 01/26/2026 [id number] / [id number] / [id number] Stent Synergy Xd Mr [id number] - [id number] Implanted:Qty : 1 on 06/09/2024 by Diamond Mcgowan MD at [facility] [employer] [id number] 01/21/2026 [id number] / / [id number] documented as of this encounter Advance Directives [...] Advance Directives occurred with: Patient Care Teams Quality Control Inspector Relationship Specialty Start Date End Date Adolph Aldridge MD PCP - General Family Medicine 10/21/18 documented as of this encounter
[2024-09-10] MEDS ORDERED: LIDOCAINE 5% OINT 30 GM TUBE TOP PRN (21:10)
[2024-09-10] MEDS ORDERED: LORazepam 0.5 MG TAB PO PRN (21:10)
[2024-09-10] MEDS: HYDROmorphone INJ 0.5 MG/0.5 ML SYR IV STA ×2 (21:50→22:31)
[2024-09-10] MEDS: carBAMazepine 200 MG TABLET PO SCH (21:52)
[2024-09-10] MEDS: METOPROLOL SUCC 50MG EXT REL TAB PO SCH (21:53)
[2024-09-10 22:38] LABS: Fibrinogen 241 mg/dl (184-400)
[2024-09-10 22:41] LABS: D Dimer 21280 ug/L FEU (0-500)
--- NOTE | 2024-09-10 23:34 | Emergency Department Note ---
History of Present Illness General Chief complaint: Fever Stated complaint: FEVER, WEAKNESS Time Seen by Provider: 09/10/24 16:10 History of Present Illness Provider complaint: Weakness Maximum Pain Intensity: 10 38-year-old female end-stage renal disease on hemodialysis presents emergency department for weakness. Patient states she feels very weak and states she was having vomiting so she did not go to dialysis on Saturday. She patient reports no fevers. Patient reports of difficulty breathing. Patient reports no headaches. Home Medications Medication Instructions Recorded Confirmed Type carbamazepine 200 mg tablet 200 mg PO AMPM 06/08/23 09/10/24 History hydroxyzine HCl 25 mg tablet 25 mg PO Q6H PRN Anxiety 06/08/23 09/10/24 History lorazepam 0.5 mg tablet 0.5 mg PO Q8H PRN Anxiety 06/08/23 09/10/24 History vitamin B complex-vitamin C-folic 1 tab PO QAM 06/08/23 09/10/24 History acid 0.8 mg tablet (Renal-Rika) benzonatate 100 mg capsule 200 mg PO TID PRN Cough 08/29/23 09/10/24 History calcium acetate(phosphat bind) 667 2,001 mg PO UD 08/29/23 09/10/24 History mg capsule medroxyprogesterone 150 mg/mL 150 mg IM .EVERY 3 MONTHS 08/29/23 09/10/24 History intramuscular suspension (Depo-Provera) lidocaine 5 % topical ointment 1 applic topical QID PRN pain #30 04/11/24 09/10/24 Rx grams bupropion HCl 150 mg 24 hr tablet, 150 mg PO QAM 04/17/24 09/10/24 History extended release mirtazapine 7.5 mg tablet 7.5 mg PO HS 04/17/24 09/10/24 History aspirin 81 mg tablet,delayed 81 mg PO QAM #30 tabs 05/09/24 09/10/24 Rx release clopidogrel 75 mg tablet 75 mg PO QAM #30 tabs 05/09/24 09/10/24 Rx amlodipine 2.5 mg tablet 2.5 mg PO QAM 07/24/24 09/10/24 History atorvastatin 40 mg tablet 40 mg PO QPM 07/24/24 09/10/24 History metoprolol succinate 50 mg 50 mg PO BID 07/24/24 09/10/24 History tablet,extended release 24 hr oxycodone-acetaminophen 5 mg-325 1 tab PO Q8H PRN pain #15 tabs 08/10/24 09/10/24 Rx mg tablet (Percocet) cyclobenzaprine 5 mg tablet 5 mg PO Q8H PRN Muscle Spasm 09/10/24 09/10/24 History varenicline tartrate 1 mg tablet 1 mg PO BID 09/10/24 09/10/24 History Allergies Allergy/AdvReac Type Severity Reaction Status Date / Time cefaclor Allergy Intermediate Rash Verified 09/10/24 17:09 Cephalosporins Allergy Intermediate Rash Verified 09/10/24 17:09 amoxicillin AdvReac Intermediate VOMITING Verified 09/10/24 17:09 clavulanic acid AdvReac Intermediate VOMITING Verified 09/10/24 17:09 Past Med/Surg History Problem List (Updated 09/10/24 @ 23:34 by Harsh Stapleton MD) Hyponatremia (Acute) ESRD on dialysis (Acute) Generalized weakness (Acute) Pelvic pain Hyperkalemia Bilateral pleural effusion 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 Pericardial effusion Abdominal pain, right lower quadrant (Acute) Lower abdominal pain (Acute) Chronic systolic CHF (congestive heart failure) Hypertension, essential Chest pain (Acute) Chronic chest pain Chest pain (Acute) HTN, goal below 130/80 Dyslipidemia, goal LDL below 70 Stented coronary artery Premature coronary artery disease Chest pain at rest Chest pain (Acute) Rhinovirus infection Abnormal laboratory test (Acute) Coronary artery disease due to calcified coronary lesion Dialysis complication (Acute) Syncope (Acute) Acute hyperkalemia (Acute) Symptomatic anemia (Acute) Episode of syncope Rectal bleeding Chest pain (Acute) ESRD on dialysis (Acute) Acute hyperkalemia (Acute) Elevated troponin (Acute) Chest pain not due to acute coronary syndrome (Acute) Bleeding external hemorrhoids (Acute) Non-compliance (Acute) Fluid overload (Acute) Uremia (Acute) Anemia (Acute) Depression (Acute) Weakness (Acute) Sleep deprivation (Acute) Hallucinations (Acute) Anemia (Acute) Dialysis patient (Acute) Medical non-compliance (Acute) Acute uremia (Acute) Shortness of breath (Acute) Elevated troponin (Acute) Acute hyperkalemia (Acute) SOB (shortness of breath) (Acute) SOB (shortness of breath) (Acute) Acute uremia (Acute) Somnolence (Acute) Medical non-compliance (Acute) Elevated troponin (Acute) Dialysis patient (Acute) Renal failure (Acute) Hyperkalemia (Acute) Thrombocytopenia (Acute) COVID-19 (Acute) Renal osteodystrophy Anemia in ESRD (end-stage renal disease) ESRD (end stage renal disease) on dialysis (Acute) Anxiety Depression Major depressive disorder, recurrent, in partial remission Anemia of chronic disease Status post fall last fallNovember 2022 > nasal fx / knee pain, no surgery for either injury > resolved per pt report Prolonged QT interval (Acute) no cardio Anemia due to end stage renal disease (Acute) FSGS (focal segmental glomerulosclerosis) (Chronic) DX INITIALLY 2012 (CAUSING ESRD 2012) Medical History HTN (hypertension) Ischemic cardiomyopathy Status post insertion of drug-eluting stent into left anterior descending (LAD) artery Coronary artery disease ESRD (end stage renal disease) on dialysis Substernal chest pain Atypical chest pain Anemia Atypical chest pain CHF (congestive heart failure) Depression with anxiety DM2 (diabetes mellitus, type 2) Mood disorder Anxiety disorder, unspecified Abnormal chest xray Elevated lactic acid level Transaminitis Pneumonia Metabolic encephalopathy Acute non-ST elevation myocardial infarction (NSTEMI) Pulmonary edema Acute hyperkalemia Acute alteration in mental status Renal failure (ARF), acute on chronic Encephalopathy Facial fracture GI bleed ESRD (end stage renal disease) on dialysis Symptomatic anemia Tobacco abuse DVT prophylaxis Fistula right arm (currently being used) and left arm Dialysis patient SATURDAY/SAT/SATURDAY AT [facility] GERD (gastroesophageal reflux disease) Bipolar disorder Restless leg syndrome Peripheral neuropathy Asthma rare res inh use History of abnormal cervical Papanicolaou smear Elevated troponin Acute electrocardiogram changes Surgical History S/P right coronary artery (RCA) stent placement History of heart artery stent H/O eye surgery LASER SURGERY LEFT History of surgery left arm d/t clot in arm from AV fistula use @ [place] History of surgery (~09/09/20) perm cath > since removed History of colonoscopy Kidney transplant recipient 2013 AT [facility] History of tooth extraction three TOOTH History of cardiac cath 2016 NO STENTS AVF (arteriovenous fistula) bilat upper arms ---currently using right for dialysis Family History Grandmother Hx of CABG Mother Diabetes Father Crohn's disease Grandfather (Maternal) Diabetes Uncle Diabetes Grandmother (Maternal) Family history of reaction to anesthesia difficulty waking with colonoscopy Social History Smoking Status: Former smoker Tobacco Type: Cigarettes Cigarettes Per Day: 20; Second Hand Exposure: No; Do You Dip or Chew Tobacco: No; Tobacco Cessation Education Requested by Patient: No Hx Alcohol Use: No Hx Substance Use: No Preferred Language: Nepali Communication Ability: Effective Matte Cutter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 Beliefs That Will Affect Care: None marital status: Single Current Living Situation: Family Current Living Situation Comment: with grandparents How many Children do You have: 3 Other Information That Helps Us Care for You: No Feels Safe at Home: Yes Safety Concerns: Feels Safe At This Time Assistive Devices: None Physical Exam Vital Signs Vital Signs - 24 hr 09/10/24 14:06 09/10/24 15:50 09/10/24 16:00 Temperature 37.1 C Temperature Source Oral Pulse Rate 96 H 94 H Pulse Rate [Apical] 94 H Respiratory Rate 20 21 21 Respiratory Effort / Characteristics Non-Labored Spontaneous Respiratory Depth Normal Respiratory Pattern Regular Blood Pressure 121/76 156/88 H Blood Pressure [Right Arm] 152/85 H Blood Pressure Mean 91 105 Blood Pressure Mean [Right Arm] 107 Pulse Oximetry 100 94 96 Oxygen Delivery Method Room Air Room Air Sepsis Recent Fever Within 48 Hours Yes Sepsis New/Unexplained Change in Mental Status No Sepsis Action Taken by Nursing No Action Required 09/10/24 16:02 09/10/24 17:00 Temperature Temperature Source Pulse Rate 94 H Pulse Rate [Apical] 96 H Respiratory Rate 20 Respiratory Effort / Characteristics Respiratory Depth Respiratory Pattern Blood Pressure Blood Pressure [Right Arm] 153/92 H Blood Pressure Mean Blood Pressure Mean [Right Arm] 112 Pulse Oximetry 92 Oxygen Delivery Method Room Air Sepsis Recent Fever Within 48 Hours Sepsis New/Unexplained Change in Mental Status Sepsis Action Taken by Nursing Physical Exam HENT: Exam performed. - Head: Normocephalic and atraumatic. EYES: Conjunctivae and EOM are normal. Right eye exhibits no discharge. Left eye exhibits no discharge. No scleral icterus. NECK: Normal range of motion. Neck supple. No JVD present. CV: Normal rate, regular rhythm, normal heart sounds and intact distal pulses. There is no peripheral edema. Palpable radial pulses bue. PULM/CHEST: Effort normal and breath sounds normal. No respiratory distress. No stridor. no wheezes. no rales. ABD: The abdomen is soft. There is no tenderness. NEURO: Motor and sensation grossly intact. Course Course 1610: The patient was evaluated in room C7. A complete history and physical exam was performed Cardiac monitoring: An order was placed for continuous cardiac monitoring. The monitor shows a rate of 90 with sinus rhythm interpreted by me 1632: Vital signs stable. Labs sharp also count 4.06 hemoglobin 9.7 platelet count of 29. Sodium 125. Potassium 5.3. Discussed case with the patient's nephrology team Dr. Esteban. She states there is no need for acute intervention at this time. She does not recommend IV fluids at this time. She states that the hyponatremia is most likely secondary to volume overload. [facility]. Administered Medications Carbamazepine (Carbamazepine 200 Mg Tablet) 200 mg PO BID NIKKI Stop: 10/10/24 21:09 Last Admin: 09/10/24 21:52 Dose: 200 mg Documented By: SORAIDA Metoprolol Succinate (Metoprolol Succ 50mg Ext Rel Tab) 50 mg PO BID NIKKI Stop: 10/10/24 21:09 Last Admin: 09/10/24 21:53 Dose: 50 mg Documented By: SORAIDA Discontinued Medications Hydromorphone HCl (Hydromorphone Inj 0.5 Mg/0.5 Ml Syr) 0.25 mg IV NOW STA Stop: 09/10/24 21:40 Last Admin: 09/10/24 21:50 Dose: 0.25 mg Documented By: SORAIDA Hydromorphone HCl (Hydromorphone Inj 0.5 Mg/0.5 Ml Syr) 0.25 mg IV NOW STA Stop: 09/10/24 22:22 Last Admin: 09/10/24 22:31 Dose: 0.25 mg Documented By: SORAIDA Medical Decision Making Laboratory Data Attestation: I reviewed the patient's lab results. 09/10/24 15:04 09/10/24 15:04 Lab Results 09/10/24 09/10/24 Range/Units 15:04 15:56 WBC 4.06 L (4.8-10.8) K/ul RBC 3.10 L (4.20-5.40) M/uL Hgb 9.7 L (12.0-16.0) g/dl Hct 28.7 L (37.0-47.0) % MCV 92.6 (80.0-100.0) fL MCH 31.3 (25.0-34.0) pg MCHC 33.8 (32.0-36.0) g/dL RDW Std Deviation 56.7 H (36.4-46.3) fL RDW Coeff of Laith 16.7 H (11.5-14.5) % Plt Count 29 L* (130-400) K/uL Immature Gran % (Auto) 1.2 % Neut % (Auto) 82.6 % Lymph % (Auto) 5.7 % [place] % (Auto) 10.3 % Eos % (Auto) 0.0 % Baso % (Auto) 0.2 % Neut # (Auto) 3.35 (1.40-6.50) K/uL Lymph # (Auto) 0.23 L (1.20-3.40) K/uL [place] # (Auto) 0.42 (0.11-0.59) K/uL Eos # (Auto) 0.00 (0.00-0.50) K/uL Baso # (Auto) 0.01 (0.00-0.20) K/uL Immature Gran # (Auto) 0.05 (0.01-0.20) K/uL Platelet Estimate Signific. Decreased L (Normal) Polychromasia 1+ Ovalocytes 2+ Echinocytes 2+ PT 13.0 H (9.0-12.0) Seconds INR 1.2 H (0.9-1.1) APTT 35 H (21-31) Seconds PTT Ratio 1.3 Sodium 125 L (136-145) mmol/L Potassium 5.3 H (3.5-5.1) mmol/L Chloride 83 L (98-107) mmol/L Carbon Dioxide 23 (21-32) mmol/L Anion Gap 19 H (3-11) BUN 73 H (6-23) mg/dl Creatinine 10.50 H* (0.6-1.2) mg/dl Est Cr Clr Drug Dosing Not Reportable eGFR 4.40 BUN/Creatinine Ratio 7.0 L (10-20) Glucose 129 H (70-99(Fasting)) mg/dl Calcium 9.1 (8.6-10.3) mg/dl Total Bilirubin 0.9 (0.2-1.0) mg/dl AST 166 H (13-39) U/L ALT 117 H (7-52) U/L Alkaline Phosphatase 79 (34-104) U/L Total Protein 5.8 L (6.0-8.3) gm/dl Albumin 3.6 (3.4-5.0) gm/dl Globulin 2.2 L (2.5-4.0) gm/dl Albumin/Globulin Ratio 1.6 (0.9-2) Adenovirus (PCR) Not Detected (NotDetected) B. pertussis DNA (PCR) Not Detected (NotDetected) B.parapertussis DNA PCR Not Detected (NotDetected) Lyme Disease Screen Negative (Negative) C. pneumoniae DNA (PCR) Not Detected (NotDetected) Coronavirus OC43 (PCR) Not Detected (NotDetected) Coronavirus HKU1 (PCR) Not Detected (NotDetected) Coronavirus 229E (PCR) Not Detected (NotDetected) SARS-CoV-2 (PCR) Not Detected (NotDetected) Coronavirus NL63 (PCR) Not Detected (NotDetected) Human Metapneumovir PCR Not Detected (NotDetected) Influenza Type A (PCR) Not Detected (NotDetected) Influenza Type B (PCR) Not Detected (NotDetected) M. pneumoniae (PCR) Not Detected (NotDetected) Parainfluenza 1 (PCR) Not Detected (NotDetected) Parainfluenza 2 (PCR) Not Detected (NotDetected) Parainfluenza 3 (PCR) Not Detected (NotDetected) Parainfluenza 4 (PCR) Not Detected (NotDetected) RSV (PCR) Not Detected (NotDetected) Entero/Rhino (PCR) Not Detected (NotDetected) Imaging Data Attestation: I personally reviewed and interpreted this imaging study as follows: My Impression: Chest x-ray negative. Airway clear. No pneumothorax. No consolidation. No cardiomegaly or cephalization.. No free air under the diaphragm. No fractures of the skeletal structures. Radiologist's Impression: Chest X-Ray 09/10/24 16:23 EXAM: Radiograph of the Chest 1 View INDICATION: Shortness of breath. TECHNIQUE: Frontal view of the chest. COMPARISON: 09/05/2024 FINDINGS: Lungs and pleural spaces: Stable mild chronic prominent interstitial markings accentuated by shallow inspiration. There may be a 2.9 x 2.1 cm developing infiltrate in the left apex versus summation shadow. No pleural effusion or pneumothorax. Heart: Stable large cardiac shadow. Mediastinum: Normal contour. Bones/joints: No fracture, erosion or dislocation. Soft tissues: Stable brachiocephalic and right axillary stents. Upper abdomen: No abnormality noted. IMPRESSION: There may be a 2.9 x 2.1 cm developing infiltrate in the left apex versus summation shadow. Otherwise unchanged. ACT 112: Negative or not required by law. Electronically signed by Ksenia Mejia 09-10-2024 4:42 PM [facility] Narrative 1610: The patient was evaluated in room C7. A complete history and physical exam was performed Cardiac monitoring: An order was placed for continuous cardiac monitoring. The monitor shows a rate of 90 with sinus rhythm interpreted by nm 1632: Vital signs stable. Labs sharp also count 4.06 hemoglobin 9.7 platelet count of 29. Sodium 125. Potassium 5.3. Discussed case with the patient's nephrology team Dr. Esteban. She states there is no need for acute intervention at this time. She does not recommend IV fluids at this time. She states that the hyponatremia is most likely secondary to volume overload. Patient be admitted to the [facility] team. Impression & Plan Thrombocytopenia, Non-compliance, Hyponatremia Discharge Plan Visit Data Chief Complaint: Fever Stated Complaint: FEVER, WEAKNESS ED Provider: Harsh Stapleton Discharge Problem: Thrombocytopenia, Non-compliance, Hyponatremia Patient Disposition: Admitted As Inpatient Discharge Instructions Interventions: ED Discharge Assessment Last Done: 09/10/24 20:45
[2024-09-11] MEDS: OPTIRAY 320 125ml IV ONE (01:46)
--- NOTE | 2024-09-11 03:17 | CT Scan Report ---
EXAM: CT angio chest PE protocol CLINICAL HISTORY: 118 ML OPTIRAY 320, EVAL FOR PE TECHNIQUE: Contiguous axial images were obtained from the neck base through the upper abdomen following intravenous administration of iodinated contrast material. Angiographic images were processed, 3D MIP images were acquired for interpretation. If IV contrast material had not been administered, the likelihood of detecting abnormalities relevant to the patient's condition would have been substantially decreased. Coronal and sagittal 3-D MIPs were likewise performed and indicated to increase the sensitivity of detectin diffuse clinically relevant pathology. CT scan was performed according to ALARA (as low as reasonable achievable). 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 FINDINGS: Multifocal patchy variable sizednodular infiltrate/consolidations are noted involving both lungs ; predominantly lower lobes. Adequate contrast bolus without evidence of pulmonary embolism. The central airways are patent. No pleural effusion. The heart, aorta, and pulmonary arteries are of normal size and configuration. There are no appreciable coronary artery and aortic atherosclerotic calcifications. No pericardial effusion is identified. The thyroid is unremarkable. No mediastinal, hilar, or axillary lymphadenopathy is noted. No suspicious lytic or sclerotic osseous lesions are identified. Venous grafts are seen appropriate positioned in the distal left brachiocephalic vein and at the junction of right distal cephalic vein and subclavian vein. Both the grafts are patent and show normal contrast opacification. No evidence of graft breakage or migration. Bilateral subclavian, axillary and cephalic veins are dilated.-stable. Multiple dilated and tortuous venous collaterals are seen along bilateral anterolateral chest wall.-stable. IMPRESSION: 1. No evidence of pulmonary embolism Multifocal patchy variable sized nodular infiltrate/consolidations are noted involving both lungs ; predominantly lower lobes.- possibility of infective etiology likely.- -new finding. Complete resolution of prior pleural effusion. Electronically signed by Mj Downs 09-11-2024 03:15 AM
[2024-09-11 06:01] LABS: A calco-baum cmplx NotReported Not Detected (NotDetected); Bact fragilis Not Reported Not Detected (NotDetected); Blood Culture Id Panel See PCR Comment (NotDetected); C auris Not Reported Not Detected (NotDetected); Calbicans Not Reported Not Detected (NotDetected); Candida glabrata Not Reported Not Detected (NotDetected); Candida krusei Not Reported Not Detected (NotDetected); Cneoformans/gatti Not Reported Not Detected (NotDetected); Cparapsilosis Not Reported Not Detected (NotDetected); E cloacae compx Not Reported Not Detected (NotDetected); Efaecalis Not Reported Not Detected (NotDetected); Efaecium Not Reported Not Detected (NotDetected); Enterobacterales Not Reported Not Detected (NotDetected); Escherichia coli Not Reported Not Detected (NotDetected); H influenzae Not Reported Not Detected (NotDetected); K aerogenes Not Reported Not Detected (NotDetected); Koxytoca Not Reported Not Detected (NotDetected); Kpneumoniae grp Not Reported Not Detected (NotDetected); Lmonocyt Not Reported Not Detected (NotDetected); N meningitidis Not Reported Not Detected (NotDetected); P aeruginosa Not Reported Not Detected (NotDetected); Proteus spp Not Reported Not Detected (NotDetected); Salmonella spp Not Reported Not Detected (NotDetected); Staph lugdunensis Not Reported Not Detected (NotDetected); Staph spp. Not Reported DETECTED (NotDetected); Staphaureus Not Reported DETECTED (NotDetected); Staphepi Not Reported Not Detected (NotDetected); Staphylococcus spp. DETECTED (NotDetected); Stenmaltophilia Not Reported Not Detected (NotDetected); Strep agal(GrpB) Not Reported Not Detected (NotDetected); Strep pneum Not Reported Not Detected (NotDetected); Strep pyog (GrpA) Not Reported Not Detected (NotDetected); Strep spp Not Reported Not Detected (NotDetected); mecAC+MREJ Resistant Gene MRSA Not Detected (NotDetected)
[2024-09-11] MEDS ORDERED: VANCOMYCIN CONSULT ACTIVE PRN (06:43)
[2024-09-11] MEDS ORDERED: VANCOMYCIN HCL 1,000 MG/270 ML BAG IV SCH (06:45)
--- NOTE | 2024-09-11 07:37 | Ultrasound Report ---
EXAM: US venous doppler LE BI CLINICAL HISTORY: HX: PREV 03/31/24. NEGATIVE FOR PE. ELEVATED D-DIMER. TECHNIQUE: Ultrasound examination of bilateral lower extremity veins was performed in real time and duplex. One or more of the following were performed- spectral analysis, resistive index, waveform analysis, and pulsed Doppler. COMPARISON: 08/11/2017. FINDINGS: Normal phasic, non-pulsatile and spontaneous flow is noted in bilateral GSV, common femoral, superficial femoral, popliteal, anterior tibial, posterior tibial and peroneal veins. Visualized veins of both lower extremities demonstrate normal compressibility. No sonographic evidence of acute deep vein thrombosis (DVT) is detected in the visualized veins of both lower extremities. Compression and Augmentation: All evaluated veins compress fully with applied transducer pressure. Augmentation of venous flow is noted with distal compression. Additional Findings: No evidence of intraluminal thrombus. IMPRESSION: 1. No sonographic evidence of acute DVT detected in bilateral lower extremity veins, at the time of examination. 2. No interval changes compared to prior study. Disclaimer: DVT could be missed early in the disease when clot burden is minimal. For patients with moderate and high pretest probability of DVT and negative ultrasound, the [employer] clinical guidelines recommend testing with a D-dimer assay or repeat ultrasound in 5-7 days. If symptoms worsen, the Society of radiologists in ultrasound recommends repeating ultrasound even earlier. Electronically signed by Betty Faust 09-11-2024 07:36 AM
[2024-09-11] MEDS: PIPERACILLIN/TAZOBACTAM 4.5 GM/100 ML BAG IV STA (08:04)
[2024-09-11] MEDS ORDERED: ACETAMINOPHEN 325 MG TAB PO PRN (08:09)
[2024-09-11] MEDS: VANCOMYCIN HCL 1,500 MG in SODIUM CHLORIDE 0.9% 500 ML IV STA (08:36)
--- NOTE | 2024-09-11 08:38 | Nephrology Consultation ---
Date of Consultation September 11, 2024 Assessment & Plan (1) ESRD on dialysis: missed treatment on 09/09 > volume overload contributes to hypoxia and to hyponatremia including sNa 125 yesterday for HD today routine treatment > 4 hrs, 2K bath, UF as tolerated > BP are borderline so may not tolerate much >may need further treatments tomorrow depending on clinical status -f/u today's pending labs (2) Sepsis due to Staphylococcus aureus: f/u pending blood cultures > has vanco ordered and running just before tx > will ensure extra dose as indicated after HD; did d/w pharmacy (3) Chronic systolic CHF (congestive heart failure): EF 45%; not tolerating (4) Severe thrombocytopenia: plts 29K; extensive w/u underway; new; ? 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 PMH includes 05/2024 high risk LAD stent, 05/07/24 L heart cath w/ urgent distal R coronary artery stent and severe multivessel coronary disease on aspirin and plavix, TTE 07/2024 w/ HF/ hypokinesis (EF 45%); hx of failed renal transplant for ESRD from [facility], DM2, HTN, GERD, bipolar disorder/anxiety w/ the latter often severe, restless leg syndrome; hx of acute thrombosis of brachiocephalic vein, s/p summer 2023 pelvic fracture (second one / likely related to renal osteodystrophy) causing her pain and somewhat limiting ambulation, hx large bleeding hemorrhoids. She is frequently nonadherent to OP treatments d/t uncontrolled anxiety and/or other psychosocial issues. frequent hospital admissions for noncardiac chest pain late 2023; just d/c 09/07 after obs for vol OL/missed tx d/t anxiety; did not attend OP HD on 09/09. Seen on dialysis and she's very drowsy; wakens only briefly > concerned about fecal urgency/incontinence; febrile overnight; no chest or pelvic pain currently. Again, ROS limited by pt fatigue. Allergies Allergy/AdvReac Type Severity Reaction Status Date / Time cefaclor Allergy Intermediate Rash Verified 09/10/24 17:09 Cephalosporins Allergy Intermediate Rash Verified 09/10/24 17:09 amoxicillin AdvReac Intermediate VOMITING Verified 09/10/24 17:09 clavulanic acid AdvReac Intermediate VOMITING Verified 09/10/24 17:09 Home Medications Medication Instructions Recorded Confirmed Type carbamazepine 200 mg tablet 200 mg PO AMPM 06/08/23 09/10/24 History hydroxyzine HCl 25 mg tablet 25 mg PO Q6H PRN Anxiety 06/08/23 09/10/24 History lorazepam 0.5 mg tablet 0.5 mg PO Q8H PRN Anxiety 06/08/23 09/10/24 History vitamin B complex-vitamin C-folic 1 tab PO QAM 06/08/23 09/10/24 History acid 0.8 mg tablet (Renal-Rika) benzonatate 100 mg capsule 200 mg PO TID PRN Cough 08/29/23 09/10/24 History calcium acetate(phosphat bind) 667 2,001 mg PO UD 08/29/23 09/10/24 History mg capsule medroxyprogesterone 150 mg/mL 150 mg IM .EVERY 3 MONTHS 08/29/23 09/10/24 History intramuscular suspension (Depo-Provera) lidocaine 5 % topical ointment 1 applic topical QID PRN pain #30 04/11/24 09/10/24 Rx grams bupropion HCl 150 mg 24 hr tablet, 150 mg PO QAM 04/17/24 09/10/24 History extended release mirtazapine 7.5 mg tablet 7.5 mg PO HS 04/17/24 09/10/24 History aspirin 81 mg tablet,delayed 81 mg PO QAM #30 tabs 05/09/24 09/10/24 Rx release clopidogrel 75 mg tablet 75 mg PO QAM #30 tabs 05/09/24 09/10/24 Rx amlodipine 2.5 mg tablet 2.5 mg PO QAM 07/24/24 09/10/24 History atorvastatin 40 mg tablet 40 mg PO QPM 07/24/24 09/10/24 History metoprolol succinate 50 mg 50 mg PO BID 07/24/24 09/10/24 History tablet,extended release 24 hr oxycodone-acetaminophen 5 mg-325 1 tab PO Q8H PRN pain #15 tabs 08/10/24 09/10/24 Rx mg tablet (Percocet) cyclobenzaprine 5 mg tablet 5 mg PO Q8H PRN Muscle Spasm 09/10/24 09/10/24 History varenicline tartrate 1 mg tablet 1 mg PO BID 09/10/24 09/10/24 History Patient History Medical History HTN (hypertension) Ischemic cardiomyopathy Status post insertion of drug-eluting stent into left anterior descending (LAD) artery Coronary artery disease ESRD (end stage renal disease) on dialysis Substernal chest pain Atypical chest pain Anemia Atypical chest pain CHF (congestive heart failure) Depression with anxiety DM2 (diabetes mellitus, type 2) Mood disorder Anxiety disorder, unspecified Abnormal chest xray Elevated lactic acid level Transaminitis Pneumonia Metabolic encephalopathy Acute non-ST elevation myocardial infarction (NSTEMI) Pulmonary edema Acute hyperkalemia Acute alteration in mental status Renal failure (ARF), acute on chronic Encephalopathy Facial fracture GI bleed ESRD (end stage renal disease) on dialysis Symptomatic anemia Tobacco abuse DVT prophylaxis Fistula right arm (currently being used) and left arm Dialysis patient SATURDAY/SAT/SATURDAY AT [facility] GERD (gastroesophageal reflux disease) Bipolar disorder Restless leg syndrome Peripheral neuropathy Asthma rare res inh use History of abnormal cervical Papanicolaou smear Elevated troponin Acute electrocardiogram changes Surgical History S/P right coronary artery (RCA) stent placement History of heart artery stent H/O eye surgery LASER SURGERY LEFT History of surgery left arm d/t clot in arm from AV fistula use @ [facility] History of surgery (~09/09/20) perm cath > since removed History of colonoscopy Kidney transplant recipient 2013 AT [facility] History of tooth extraction three TOOTH History of cardiac cath 2016 NO STENTS AVF (arteriovenous fistula) bilat upper arms ---currently using right for dialysis Family History Grandmother Hx of CABG Mother Diabetes Father Crohn's disease Grandfather (Maternal) Diabetes Uncle Diabetes Grandmother (Maternal) Family history of reaction to anesthesia difficulty waking with colonoscopy Social History Smoking Status: Former smoker Tobacco Type: Cigarettes Cigarettes Per Day: 20; Second Hand Exposure: No; Do You Dip or Chew Tobacco: No; Tobacco Cessation Education Requested by Patient: No Hx Alcohol Use: No Hx Substance Use: No Preferred Language: Kyrgyz Communication Ability: Effective Valve Inspector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 Beliefs That Will Affect Care: None marital status: Single Current Living Situation: Family Current Living Situation Comment: with grandparents How many Children do You have: 3 Other Information That Helps Us Care for You: No Feels Safe at Home: Yes Safety Concerns: Feels Safe At This Time Assistive Devices: None Review of Systems 2 Review of Systems: All systems reviewed & are unremarkable except as noted in HPI & below and Unobtainable due to reduced consciousness (fatigue/sleepy) Physical Exam 2 Constitutional: well developed, well nourished and + lethargic; no acute distress ENMT: Mouth: + dry oral mucous membranes Respiratory: normal respiratory effort Auscultation: + diminished lung sounds Cardiovascular: Rate/Rhythm: + tachycardic Extremities: + AV fistula; no edema Gastrointestinal (Abdomen): Inspection/Auscultation: normal bowel sounds P ercussion/Palpation: abdomen soft; abdomen nontender Musculoskeletal: Extremities: strength 5/5 throughout Skin: no rashes, warm and dry Neurologic: sandy, fluent but limited by snoring/sleeping speech, no tremor Results & Data Vital Signs (Past 12 Hours) Vital Signs Temp Pulse Pulse Pulse Resp BP BP 09/11/24 07:33 38.7 C H 85 16 128/78 09/11/24 07:18 92 H 09/11/24 02:35 36.7 C 98 H 19 139/61 09/10/24 22:52 95 H 09/10/24 21:41 93 H 09/10/24 21:41 09/10/24 21:15 36.3 C L 95 H 20 146/76 H 09/10/24 21:10 36.4 C L 97 H 22 146/76 H 09/10/24 21:10 09/10/24 21:00 36.4 C L 97 H 22 146/76 H 09/10/24 20:40 37.1 C 96 H 22 159/108 H Pulse Ox Pulse Ox O2 Del Method O2 Del Method O2 Flow Rate 09/11/24 07:33 90 Nasal Cannula 2 09/11/24 07:18 09/11/24 02:35 95 Room Air 09/10/24 22:52 09/10/24 21:41 09/10/24 21:41 Room Air 09/10/24 21:15 98 09/10/24 21:10 97 Room Air 09/10/24 21:10 98 Room Air 09/10/24 21:00 98 09/10/24 20:40 99 Laboratory Results 09/10/24 15:04 09/10/24 15:04 Diagnostic Findings CXR (images personally reveiwed; agree w/ report) > ? L apical PNA CTA chest -No evidence of pulmonary embolism -Multifocal patchy variable sized nodular infiltrate/consolidations are noted involving both lungs ; predominantly lower lobes.- possibility of infective etiology likely.- -new finding. -Complete resolution of prior pleural effusion.
[2024-09-11] MEDS: ACETAMINOPHEN 1,000 MG/100 ML VIAL IV STA (08:54)
[2024-09-11 12:00] LABS: Calcium 8.8 mg/dl (8.6-10.3); Potassium 5.8 mmol/L (3.5-5.1)
[2024-09-11 12:09] LABS: Creatinine Clr Calc Pharmacy 7.1 ml/min
[2024-09-11 12:37] LABS: Hematocrit (blood only) 24.5 % (37.0-47.0); Hemoglobin 8.4 g/dl (12.0-16.0); Mean Corpuscular Hemoglobin 31.1 pg (25.0-34.0); Mean Corpuscular Hgb Conc 34.3 g/dL (32.0-36.0); Mean Corpuscular Volume 90.7 fL (80.0-100.0); Platelet Count 16 K/uL (130-400); RDW Coefficient of Variation 16.9 % (11.5-14.5); RDW Standard Deviation 56.2 fL (36.4-46.3); White Blood Count 5.14 K/ul (4.8-10.8)
[2024-09-11 12:55] LABS: Immature Granulocytes # (auto) 0.07 K/uL (0.01-0.20); Immature Granulocytes % (auto) 1.4 %; Lymphocytes # (auto) 0.25 K/uL (1.20-3.40); Lymphocytes % (auto) 4.9 %; Monocytes # (auto) 0.43 K/uL (0.11-0.59); Monocytes % (auto) 8.4 %; Neutrophils # (auto) 4.39 K/uL (1.40-6.50); Neutrophils % (auto) 85.3 %
--- NOTE | 2024-09-11 12:56 | Dialysis Progress Note ---
Date of Service September 11, 2024 Assessment & Plan (1) ESRD on dialysis: Plan: missed treatment on 09/09 > volume overload contributes to hypoxia and to worsening hyperkalemia (K 5.8 today) and hyponatremia including sNa 125 yesterday and 123 today for HD today routine treatment > 4 hrs, 2K bath, UF as tolerated > however d/t anxiety/discomfort came off after 2.5 hours w/ no UF >will likely need further treatment tomorrow depending on clinical status >>started lokelma for mild hyperkalemia which will worsen >> 10 gm bid ordered >>ordered 1.2 L FR Care coordinated w/ hospitalist via TText re a fib, likely need for antoher tx in AM, worsening thrombocytopenia, lokelma rx; we are in agreement. (2) Atrial fibrillation: Plan: believe this is new for her > per primary service; low threshold for cardiology eval in setting of bacteremia, thrombocytopenia (3) Sepsis due to Staphylococcus aureus: Plan: f/u pending blood cultures > has vanco ordered and running just before tx > will ensure extra dose as indicated after HD; did d/w pharmacy (4) Chronic systolic CHF (congestive heart failure): Plan: EF 45%; not tolerating UF today on HD >> ran even (5) Severe thrombocytopenia: Plan: plts 29K on admission; extensive w/u underway; new; ? 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: Plan: d/t nonadherence w/ HD and w/ phos binders; likely contributor to bone frailty/fractures Admission and Anticipated Discharge Date Admission Date: September 10, 2024 Subjective delayed note entered after I saw her on HD at approx 1045; no c/o sob or chest pain; concerned she needs to move bowels; no abd pain; went into AFIB w/ RVR to 120-130s about 90 min into tx Review of Systems 2 Review of Systems: All systems reviewed & are unremarkable except as noted in Subjective Physical Exam 2 Constitutional: well developed, well nourished and + lethargic; no acute distress ENMT: Mouth: + dry oral mucous membranes Respiratory: normal respiratory effort Auscultation: + diminished lung sounds Cardiovascular: Rate/Rhythm: + tachycardic and + irregularly irregular E xtremities: + AV fistula; no edema Gastrointestinal (Abdomen): Inspection/Auscultation: normal bowel sounds P ercussion/Palpation: abdomen soft; abdomen nontender Musculoskeletal: Extremities: strength 5/5 throughout Skin: no rashes, warm and dry Results & Data Vital Signs (Past 12 Hours) Vital Signs Temp Pulse Pulse Pulse Resp BP BP 09/11/24 11:30 136 H 119/70 09/11/24 11:15 128 H 121/72 09/11/24 11:00 138 H 135/72 09/11/24 10:45 130 H 99/67 L 09/11/24 10:30 107 H 91/75 L 09/11/24 10:13 114 H 111/57 L 09/11/24 10:00 82 95/80 L 09/11/24 09:32 82 134/57 L 09/11/24 09:22 37.6 C H 83 09/11/24 07:33 38.7 C H 85 16 128/78 09/11/24 07:18 92 H 09/11/24 02:35 36.7 C 98 H 19 139/61 Pulse Ox O2 Del Method O2 Flow Rate 09/11/24 11:30 09/11/24 11:15 09/11/24 11:00 09/11/24 10:45 09/11/24 10:30 09/11/24 10:13 09/11/24 10:00 09/11/24 09:32 09/11/24 09:22 09/11/24 07:33 90 Nasal Cannula 2 09/11/24 07:18 09/11/24 02:35 95 Room Air Laboratory Results 09/11/24 09:44 09/11/24 09:44
[2024-09-11] MEDS: NEPHROCAPS PO SCH (13:05)
[2024-09-11] MEDS: DOXYCYCLINE HYCLATE 100 MG CAP PO SCH (13:06)
[2024-09-11] MEDS: CALCIUM ACETATE 667 MG CAP/TAB PO SCH (13:07)
[2024-09-11] MEDS: amLODIPine BESYLATE 5 MG TAB PO SCH (13:08)
[2024-09-11 13:10] LABS: Ovalocytes 2+; Platelet Estimate Signific. Decreased (Normal); Polychromasia 1+; Tear Drop Cells 1+; Toxic Granulation 1+; Toxic Vacuolation 1+
[2024-09-11] MEDS: buPROPion XL 150 MG TABCR PO SCH (13:10)
--- NOTE | 2024-09-11 13:17 | Hospitalist Progress Note ---
Date of Service September 11, 2024 Assessment & Plan (1) ESRD on dialysis: (2) Generalized weakness: (3) Chronic systolic CHF (congestive heart failure): (4) Hypertension, essential: (5) Chest pain: (6) Stented coronary artery: (7) Ischemic cardiomyopathy: (8) Bipolar disorder: Plan Patient is a 38-year-old female with extensive past medical history including ESRD on dialysis who presented to the ED on 09/10/2024 with complaints of trouble ambulating and weakness, found to have a critically low platelet count of 29. Sepsis POA MSSA bacteremia Pneumonia Patient presented to the hospital with generalized weakness and fatigue Blood culture 3 out of 4 on admission positive for gram-positive cocci in clusters; PCR positive for MSSA CTA chest on admission did not show evidence of PE; multifocal patchy variable sized nodular infiltrate/consolidation involving both lungs, predominantly lower lobes. Continue on Zosyn; reported history of rash on cephalosporin. Also on doxycycline. Obtain transthoracic echocardiogram Obtain infectious disease consult SVT, MAT versus A-fib Patient was found to be tachycardic with heart rate in 130s EKG concerning for multifocal atrial tachycardia versus A-fib Patient has severe thrombocytopenia Echocardiogram pending Continue on metoprolol; follow-up on echocardiogram. Will consult cardiology for further evaluation Severe thrombocytopenia Likely secondary to sepsis Platelet count of 16,000, D-dimer elevated, fibrinogen within normal limits, PT/INR, APTT within normal limits Suspect thrombocytopenia secondary to sepsis Monitor CBC daily ESRD on hemodialysis with history of noncompliance Hyponatremia Hyperkalemia Patient has history of missing dialysis sessions. She missed another dialysis session a day prior to admission Hyponatremia, hyperkalemia likely secondary to ESRD Dialysis as per nephrology Transaminitis: Could be viral or medication induced, trend LFTs daily, avoid hepatotoxic medications Hx CHFEF 35-40% Continue metoprolol Hx asthma: Continue home inhalers Hx depression with anxiety Hx bipolar disorder Continue lorazepam/mirtazapine/Wellbutrin Hx [id number]: Last A1c on 03/2024 5.6 I updated patient's mom over the phone. Patient is critically sick secondary to severe sepsis, thrombocytopenia, SVT ; has multiple comorbidities along with non-compliance. I discussed that there is a possibility of progression of sepsis to multiorgan failure, ; she verbalized understanding. She is in agreement with the plan. Code status is currently full code. Time spent evaluating patient, direct bedside care, chart review, placing order s, interpretation of diagnostic studies, discussion with consultants, patient, and family members, as well as other required patient management activities is 75 minutes Please note the above document was generated using voice recognition software. It may contain grammatical, syntax or spelling errors. Any formal questions or concerns about the content, text or information contained within the body of this dictation should be directly addressed to the provider for clarification Admission and Anticipated Discharge Date Admission Date: September 10, 2024 Subjective Patient was seen in the morning and in the afternoon Sleep was sleepy but awake able by voice. She reported generalized fatigue, tiredness. She was febrile in the a.m. with improvement in the temperature later Review of Systems Review of Systems: All systems reviewed & are unremarkable except as noted in Subjective Physical Exam Physical Exam: Constitutional: Sleepy but awake able via voice. Reports generalized aches/pain. Respiratory: Bilateral decreased breath sound at bases Cardiovascular: RRR, no murmur, no edema Vessels: no JVD or carotid bruit Chest: normal inspection of chest Abdomen: normal bowel sounds, soft, nontender, no hepatosplenomegaly Musculoskeletal: Fistula present in bilateral arm; bruit present on right fistula. Skin: no rashes, warm and dry normal turgor Neurologic: Grossly moves all extremities. Results & Data Results & Data Vital Signs (Past 12 Hours) Vital Signs Temp Pulse Pulse Pulse Resp BP BP 09/11/24 12:37 36.8 C 140 H 117/86 09/11/24 12:00 130 H 153/71 H 09/11/24 11:30 136 H 119/70 09/11/24 11:15 128 H 121/72 09/11/24 11:00 138 H 135/72 09/11/24 10:45 130 H 99/67 L 09/11/24 10:30 107 H 91/75 L 09/11/24 10:13 114 H 111/57 L 09/11/24 10:00 82 95/80 L 09/11/24 09:32 82 134/57 L 09/11/24 09:22 37.6 C H 83 09/11/24 07:33 38.7 C H 85 16 128/78 09/11/24 07:18 92 H 09/11/24 02:35 36.7 C 98 H 19 139/61 Pulse Ox O2 Del Method O2 Flow Rate 09/11/24 12:37 09/11/24 12:00 09/11/24 11:30 09/11/24 11:15 09/11/24 11:00 09/11/24 10:45 09/11/24 10:30 09/11/24 10:13 09/11/24 10:00 09/11/24 09:32 09/11/24 09:22 09/11/24 07:33 90 Nasal Cannula 2 09/11/24 07:18 09/11/24 02:35 95 Room Air (5) Chest pain Chest pain type: unspecified Qualified Code(s): R07.9 - Chest pain, unspecified
--- NOTE | 2024-09-11 14:27 | Pharmacy Report ---
Pharmacy PK ABX Note - Date of Service September 11, 2024 - Assessment and Plan Assessment 38 year old F receiving vancomycin/Zosyn for treatment of bacteremia/pneumonia. Patient has a history of ESRD on HD MWF typically. Dialysis today while receiving initial loading dose. Due to severity of infection will obtain a post- HD level today for close monitoring and potential re-dosing. Pertinent microbiologic data includes: MRSA Nasal Swab pending, blood culture growing GPCs (3/4) BiofireID S. Aureus no Mec A/C resistence noted, possible infective multifocal patchy variable sized nodular infiltrate/consolidations in both lungs on CTA. Day # 1 of antimicrobial therapy. Plan Vancomycin * Loading dose: 1500 mg IV x 1 * Will dose further vancomycin per level * Regimen is predicted to achieve target AUC/YING of 400-600 mg/L.hr * Post-HD random level ordered for: 09/11/23 @1600 Pharmacy will continue to follow and will adjust dose/frequency as necessary. Thank you. Pharmacy has transitioned to AUC monitoring for vancomycin. AUC/YING is the preferred PK/PD target and is associated with decreased risk of nephrotoxicity compared to traditional trough targets.
--- NOTE | 2024-09-11 14:46 | Cardiology Progress Note ---
Date of Service September 11, 2024 Assessment & Plan (1) Sinus tachycardia: (2) Severe thrombocytopenia: (3) Premature coronary artery disease: Plan: -Patient receives dialysis treatments via a right AV fistula. -EKG performed 09/11/2024 at 10:46 AM reviewed independently and per my interpretation when taking the associated telemetry data into account is consistent with sinus tachycardia with frequent PACs. She certainly is at risk for developing atrial fibrillation. After she received her metoprolol, sinus rhythm in the 90s noted on telemetry. She has a history of an acute thrombosis of the brachiocephalic vein. She is not a candidate for anticoagulation at present With noted severe thrombocytopenia, platelet count 16,000 this morning. A heparin associated antibody test has been sent. Diagnostics: A transthoracic echocardiogram has been completed and will be reviewed. Therapeutics: Continue metoprolol succinate 50 mg twice daily.Continue antibiotics as per the primary service. Admission and Anticipated Discharge Date Admission Date: September 10, 2024 Katia Arguello is a 38 year old female seen in cardiology consultation per the request of Dr Pandey for the evaluation of tachycardia. Patient presented via the emergency department on 09/10/2024 with complaints of generalized weakness with intermittent fevers at home and flulike symptoms. She has since been found to have gram-positive cocci in clusters on 09/27 blood cultures obtained on 05/11/2025. PCR testing suggestive of the presence of Staph aureus. At present she is resting comfortably. This morning prior to dialysis session she was noted to have a narrow complex tachycardia with rates in the 130s and some degree of irregularity of the QRS complexes noted on telemetry. Her morning metoprolol succinate dose was not administered this morning due to somnolence. She subsequently received it about 1 PM after she completed her dialysis session. Rates have improved to the 90s at the time of my assessment. Past Medical and Surgical History: History of FSGS, failed renal transplant, end-stage renal disease on hemodialysis, with known noncompliance and frequently missed treatments ASCVD January 26, 2017 Coronary Angiography ([facility], Dr. Velasquez): The coronary arteries are angiographically normal. The left ventricular end-diastolic pressure is normal. Very poor pain tolerance noted. Possible drug-seeking behavior. During "10/10" chest pain on floor patient was observed to be calmly working on a crossword puzzle. Mildly dilated LV with mild diffuse global hypokinesis, EF 50%. May 07, 2024 for acute coronary syndrome, coronary angiography by Dr. Britton at [facility] revealing severe multivessel coronary artery disease with 100% mid LAD total occlusion with distal vessel filling via left to left and right to left collaterals, 100% ostial occlusion of the first diagonal branch filling partially via left to left collaterals, 95% calcified bifurcation lesion in the distal RCA into the BAV and 98% ostial RPDA stenosis. Status post successful PCI of the distal RCA into the right posterior AV branch with a single drug-eluting stent. Angioplasty of the ostial RPDA prior to stenting with multiple balloon and attempted intravascular lithotripsy, unable to pass stent across calcified ostium. Post procedure with jailed PDA with severe residual ostial stenosis but AIDA-3 flow. June 09, 2024 Coronary Angiography ([facility] [place], Dr. Mcgowan): Hemodynamically significant coronary artery disease. Mid LAD with 100% chronic total occlusion with bridging collaterals. 60 to 70% first obtuse marginal stenosis. Widely patent distal RCA stent. 70% ostial stenosis of the RPDA with AIDA III flow. Status post PCI of the LAD occlusion with a 2.75 x 38 mm Synergy drug-eluting stent with excellent angiographic result. Systolic congestive heart failure, NYHA class III, ischemic cardiomyopathy, LVEF 40 to 44% Hypertension Dyslipidemia Type 2 diabetes mellitus Anemia of chronic disease Bipolar disorder GERD Bleeding hemorrhoids Anxiety and depression History of tobacco abuse, recently reformed Physical Exam Physical Exam: General:Resting comfortably Eyes: conjunctiva are pink and non-injected, sclera clear Neck: normal jugular venous pulse, no hepatojugular reflux Chest: normal shape and normal respiratory effort Lungs: clear to auscultation and percussion Cardiac Exam: - Tachycardic, no murmur Extremities: no edema and no cyanosis Results & Data Vital Signs (Past 12 Hours) Vital Signs Temp Pulse Pulse Pulse Resp BP BP 09/11/24 12:37 36.8 C 140 H 117/86 09/11/24 12:00 130 H 153/71 H 09/11/24 11:30 136 H 119/70 09/11/24 11:15 128 H 121/72 09/11/24 11:00 138 H 135/72 09/11/24 10:45 130 H 99/67 L 09/11/24 10:30 107 H 91/75 L 09/11/24 10:13 114 H 111/57 L 09/11/24 10:00 82 95/80 L 09/11/24 09:32 82 134/57 L 09/11/24 09:22 37.6 C H 83 09/11/24 07:33 38.7 C H 85 16 128/78 09/11/24 07:18 92 H 09/11/24 02:35 36.7 C 98 H 19 139/61 Pulse Ox O2 Del Method O2 Flow Rate 09/11/24 12:37 09/11/24 12:00 09/11/24 11:30 09/11/24 11:15 09/11/24 11:00 09/11/24 10:45 09/11/24 10:30 09/11/24 10:13 09/11/24 10:00 09/11/24 09:32 09/11/24 09:22 09/11/24 07:33 90 Nasal Cannula 2 09/11/24 07:18 09/11/24 02:35 95 Room Air Laboratory Results Cardiac Enzymes 09/10/24 Range/Units 15:04 AST 166 H (13-39) U/L Coagulation 09/10/24 Range/Units 15:04 PT 13.0 H (9.0-12.0) Seconds APTT 35 H (21-31) Seconds CBC 09/10/24 09/11/24 Range/Units 15:04 09:44 WBC 4.06 L 5.14 (4.8-10.8) K/ul RBC 3.10 L 2.70 L (4.20-5.40) M/uL Hgb 9.7 L 8.4 L (12.0-16.0) g/dl Hct 28.7 L 24.5 L (37.0-47.0) % Plt Count 29 L* 16 L* (130-400) K/uL Neut # (Auto) 3.35 4.39 (1.40-6.50) K/uL Lymph # (Auto) 0.23 L 0.25 L (1.20-3.40) K/uL [place] # (Auto) 0.42 0.43 (0.11-0.59) K/uL Eos # (Auto) 0.00 0.00 (0.00-0.50) K/uL Baso # (Auto) 0.01 0.00 (0.00-0.20) K/uL Comprehensive Metabolic Panel 09/10/24 09/11/24 Range/Units 15:04 09:44 Sodium 125 L 123 L (136-145) mmol/L Potassium 5.3 H 5.8 H (3.5-5.1) mmol/L Chloride 83 L 83 L (98-107) mmol/L Carbon Dioxide 23 23 (21-32) mmol/L BUN 73 H 91 H (6-23) mg/dl Creatinine 10.50 H* 11.44 H* D (0.6-1.2) mg/dl Glucose 129 H 100 H (70-99(Fasting)) mg/dl Calcium 9.1 8.8 (8.6-10.3) mg/dl AST 166 H (13-39) U/L ALT 117 H (7-52) U/L Alkaline Phosphatase 79 (34-104) U/L Total Protein 5.8 L (6.0-8.3) gm/dl Albumin 3.6 (3.4-5.0) gm/dl Intake and Output 09/10/24 09/11/24 09/11/24 22:59 06:59 14:59 Intake Total 272 / 272 730 / 730 Output Total 0 / 0 0 / 0 Balance 272 / 272 0 / 272 730 / 730 Intake: IV 730 / 730 Acetaminophen 1,000 mg In 100 100 / 100 ml @ 400 mls/hr IV NOW STA Rx#: [id number] Piperacillin/Tazobactam 4.5 gm 100 / 100 In 100 ml @ 200 mls/hr IV NOW STA Rx#:[id number] Vancomycin HCl 1,500 mg In 530 / 530 Sodium Chloride 0.9% 500 ml @ 200 mls/hr IV NOW STA Rx#: [id number] Intake (Blood Product) Amt 272 / 272 Pr Plp2 Unit [id number] 272 / 272 Output: # Bowel Movements 0 / 0 0 / 0 Other: Hemodialysis Ultrafiltration 0 Amount Weight 80.8 kg 80.8 kg Weight Measurement Method Built in [facility] Built in [facility]
--- NOTE | 2024-09-11 16:06 | Ultrasound Report ---
US soft tissue ext ltd HISTORY: 38 years-old Female around fistula site to rule out abscess, b/l acute right upper quadrant pain with possible abscess COMPARISON: None TECHNIQUE: Multiple real-time sonographic images of the upper soft tissues were obtained assessing gr ayscale appearance and color flow FINDINGS: Patent right upper extremity AV fistula. The imaged left AV fistula demonstrates peripheral calcifica tions and flow was not utilized by botanical technical officer, this fistula is reportedly no longer in use. No adjac ent fluid collection to suggest abscess. IMPRESSION: No fluid collection identified to suggest an abscess. ACT 112: Negative or not required by law. The above report was generated using voice recognition software. It may contain grammatical, syntax o r spelling errors. Electronically signed by: Cristhian Copeland M.D. 09/11/2024 3:55 PM
--- NOTE | 2024-09-11 16:58 | Oncology Consultation ---
Date of Consultation September 11, 2024 Assessment & Plan (1) Severe thrombocytopenia: Transfuse to maintain platelet count greater than 10. Transfuse platelets if she is actively bleeding. agree with the assessment that the platelet count may be related to sepsis however this level of thrombocytopenia and persistent decline in platelets is not seen with generalized sepsis noticed that the patient has a history of ration cephalosporin and she is currently on Zosyn for broad-spectrum antibiotic coverage. It may be worthwhile to switch her antibiotics to a nonpenicillin/non-noncephalosporin compound especially if her platelet counts continue to decline platelet count reviewed, there is no evidence of schistocytosis, TTP/HUS is unlikely. However [id number] may be sent especially keeping in mind that she is weak fatigued and has altered mentation to rule out underlying TTP/HUS transfuse to maintain platelet count greater than 10,000/mcL, awaiting the latest peripheral smear review. Plan hematology will continue to follow the patient make appropriate recommendations. Thank you for this interesting hematological consult History of Present Illness Reason for Consultation: Thrombocytopenia Attending Physician: Arthur Pandey MD History of Present Illness the patient is a very pleasant 38-year-old woman with a complicated medical history, history of coronary artery disease, multivessel, renal transplant, ESRD, FSGS, diabetes mellitus type 2, hypertension, gastroesophageal reflux disease, bipolar disorder/anxiety, severe, restless leg syndrome, history of acute thrombosis of brachiocephalic vein, pelvic fracture who has been in admitted to the hospital with generalized weakness, difficulty ambulating and severe thrombocytopenia. During admission her platelet count were only 29,000. Her platelet counts have declined to 11,000/mcL. Historically her platelet count has been between 130 219,000/mcL. She Is currently admitted with pneumonia, sepsis, bacteremia. She is currently on broad-spectrum antibiotics including Zosyn however she has a history of rash on cephalosporins. She had a peripheral smear review on 09/10/2024 which revealed anisocytosis of the red blood cells, normochromic history of the red blood cells, scattered ovalocytes and Starkey sides, PMN leukocytes with cytoplasmic vacuoles. There were no schistocytes, blasts or spherocytes in the peripheral blood. Allergies Allergy/AdvReac Type Severity Reaction Status Date / Time cefaclor Allergy Intermediate Rash Verified 09/10/24 17:09 Cephalosporins Allergy Intermediate Rash Verified 09/10/24 17:09 amoxicillin AdvReac Intermediate VOMITING Verified 09/10/24 17:09 clavulanic acid AdvReac Intermediate VOMITING Verified 09/10/24 17:09 Home Medications Medication Instructions Recorded Confirmed Type carbamazepine 200 mg tablet 200 mg PO AMPM 06/08/23 09/10/24 History hydroxyzine HCl 25 mg tablet 25 mg PO Q6H PRN Anxiety 06/08/23 09/10/24 History lorazepam 0.5 mg tablet 0.5 mg PO Q8H PRN Anxiety 06/08/23 09/10/24 History vitamin B complex-vitamin C-folic 1 tab PO QAM 06/08/23 09/10/24 History acid 0.8 mg tablet (Renal-Rika) benzonatate 100 mg capsule 200 mg PO TID PRN Cough 08/29/23 09/10/24 History calcium acetate(phosphat bind) 667 2,001 mg PO UD 08/29/23 09/10/24 History mg capsule medroxyprogesterone 150 mg/mL 150 mg IM .EVERY 3 MONTHS 08/29/23 09/10/24 History intramuscular suspension (Depo-Provera) lidocaine 5 % topical ointment 1 applic topical QID PRN pain #30 04/11/2409/10 Rx grams bupropion HCl 150 mg 24 hr tablet, 150 mg PO QAM 04/17/24 09/10/24 History extended release mirtazapine 7.5 mg tablet 7.5 mg PO HS 04/17/24 09/10/24 History aspirin 81 mg tablet,delayed 81 mg PO QAM #30 tabs 05/09/24 09/10/24 Rx release clopidogrel 75 mg tablet 75 mg PO QAM #30 tabs 05/09/24 09/10/24 Rx amlodipine 2.5 mg tablet 2.5 mg PO QAM 07/24/24 09/10/24 History atorvastatin 40 mg tablet 40 mg PO QPM 07/24/24 09/10/24 History metoprolol succinate 50 mg 50 mg PO BID 07/24/24 09/10/24 History tablet,extended release 24 hr oxycodone-acetaminophen 5 mg-325 1 tab PO Q8H PRN pain #15 tabs 08/10/24 09/10/24 Rx mg tablet (Percocet) cyclobenzaprine 5 mg tablet 5 mg PO Q8H PRN Muscle Spasm 09/10/24 09/10/24 History varenicline tartrate 1 mg tablet 1 mg PO BID 09/10/24 09/10/24 History Patient History Medical History HTN (hypertension) Ischemic cardiomyopathy Status post insertion of drug-eluting stent into left anterior descending (LAD) artery Coronary artery disease ESRD (end stage renal disease) on dialysis Substernal chest pain Atypical chest pain Anemia Atypical chest pain CHF (congestive heart failure) Depression with anxiety DM2 (diabetes mellitus, type 2) Mood disorder Anxiety disorder, unspecified Abnormal chest xray Elevated lactic acid level Transaminitis Pneumonia Metabolic encephalopathy Acute non-ST elevation myocardial infarction (NSTEMI) Pulmonary edema Acute hyperkalemia Acute alteration in mental status Renal failure (ARF), acute on chronic Encephalopathy Facial fracture GI bleed ESRD (end stage renal disease) on dialysis Symptomatic anemia Tobacco abuse DVT prophylaxis Fistula right arm (currently being used) and left arm Dialysis patient SATURDAY/SAT/SATURDAY AT [facility] GERD (gastroesophageal reflux disease) Bipolar disorder Restless leg syndrome Peripheral neuropathy Asthma rare res inh use History of abnormal cervical Papanicolaou smear Elevated troponin Acute electrocardiogram changes Surgical History S/P right coronary artery (RCA) stent placement History of heart artery stent H/O eye surgery LASER SURGERY LEFT History of surgery left arm d/t clot in arm from AV fistula use @ [facility] History of surgery (~09/09/20) perm cath > since removed History of colonoscopy Kidney transplant recipient 2013 AT [facility] History of tooth extraction three TOOTH History of cardiac cath 2016 NO STENTS AVF (arteriovenous fistula) bilat upper arms ---currently using right for dialysis Family History Grandmother Hx of CABG Mother Diabetes Father Crohn's disease Grandfather (Maternal) Diabetes Uncle Diabetes Grandmother (Maternal) Family history of reaction to anesthesia difficulty waking with colonoscopy Social History Smoking Status: Former smoker Tobacco Type: Cigarettes Cigarettes Per Day: 20; Second Hand Exposure: No; Do You Dip or Chew Tobacco: No; Tobacco Cessation Education Requested by Patient: No Hx Alcohol Use: No Hx Substance Use: No Preferred Language: Frisian Communication Ability: Effective Fire Prevention Research Engineer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 Beliefs That Will Affect Care: None marital status: Single Current Living Situation: Family Current Living Situation Comment: with grandparents How many Children do You have: 3 Other Information That Helps Us Care for You: No Feels Safe at Home: Yes Safety Concerns: Feels Safe At This Time Assistive Devices: None Review of Systems Review of Systems: All systems reviewed & are unremarkable except as noted in HPI & below Constitutional: as per Subjective / HPI Eyes: as per Subjective / HPI Ear, Nose, Mouth, Throat: as per Subjective / HPI Respiratory: as per Subjective / HPI Cardiovascular: as per Subjective / HPI Gastrointestinal: as per Subjective / HPI Genitourinary: as per Subjective / HPI Musculoskeletal: as per Subjective / HPI Integumentary: as per Subjective / HPI Neurologic: as per Subjective / HPI Psychiatric: as per Subjective / HPI Endocrine: as per Subjective / HPI Physical Exam Constitutional: WD/WN, vitals as above Eyes: PERRL, conjunctivae normal, anicteric sclerae ENMT: external ear and nose normal, oropharynx normal Neck: trachea midline, no thyromegaly Respiratory: normal respiratory effort, lungs clear to auscultation Cardiovascular: RRR, no murmur, no edema Gastrointestinal (Abdomen): normal bowel sounds, soft, nontender, no hepatosplenomegaly Musculoskeletal: no cyanosis or clubbing, extremities motor strength 5/5 Skin: no rashes, warm and dry Neurologic: patellar DTR's 2+ bilat, sensation intact Psychiatric: A+Ox3, euthymic affect Results & Data Vital Signs (Past 12 Hours) Vital Signs Temp Pulse Pulse Pulse Resp BP BP 09/11/24 15:00 36.7 C 89 20 134/83 09/11/24 14:32 96 H 09/11/24 12:37 36.8 C 140 H 117/86 09/11/24 12:00 130 H 153/71 H 09/11/24 11:30 136 H 119/70 09/11/24 11:15 128 H 121/72 09/11/24 11:00 138 H 135/72 09/11/24 10:45 130 H 99/67 L 09/11/24 10:30 107 H 91/75 L 09/11/24 10:13 114 H 111/57 L 09/11/24 10:00 82 95/80 L 09/11/24 09:32 82 134/57 L 09/11/24 09:22 37.6 C H 83 09/11/24 07:45 09/11/24 07:33 38.7 C H 85 16 128/78 09/11/24 07:18 92 H Pulse Ox O2 Del Method O2 Flow Rate 09/11/24 15:00 90 Nasal Cannula 2 09/11/24 14:32 09/11/24 12:37 09/11/24 12:00 09/11/24 11:30 09/11/24 11:15 09/11/24 11:00 09/11/24 10:45 09/11/24 10:30 09/11/24 10:13 09/11/24 10:00 09/11/24 09:32 09/11/24 09:22 09/11/24 07:45 Nasal Cannula 2 09/11/24 07:33 90 Nasal Cannula 2 09/11/24 07:18
[2024-09-11] MEDS: SODIUM ZIRCONIUM CYCLOSILICATE 10 GM PACKET PO SCH (17:07)
[2024-09-11] MEDS: PIPERACILLIN/TAZOBACTAM 4.5 GM/100 ML BAG IV SCH (17:09)
--- NOTE | 2024-09-11 18:16 | Electrocardiogram Report ---
Test Reason : Blood Pressure : */* mmHG Vent. Rate : 87 BPM Atrial Rate : 87 BPM P-R Int : 188 ms QRS Dur : 80 ms QT Int : 372 ms P-R-T Axes : 9 -37 -17 degrees QTcB Int : 447 ms Normal sinus rhythm with sinus arrhythmia Left axis deviation Anterior infarct (cited on or before 21-Mar-2018) Abnormal ECG When compared with ECG of 06-Sep-2024 09:16, QRS duration has decreased Questionable change in initial forces of Lateral leads Limb lead reversal is no longer present Confirmed by Johny Rodriguez ([id number]) on 09/11/2024 6:15:56 PM Referred By: REFERRED SELF Confirmed By: Johny Rodriguez
--- NOTE | 2024-09-11 18:20 | Electrocardiogram Report ---
Test Reason : Blood Pressure : */* mmHG Vent. Rate : 124 BPM Atrial Rate : * BPM P-R Int : * ms QRS Dur : 104 ms QT Int : 368 ms P-R-T Axes : * -15 3 degrees QTcB Int : 528 ms Sinus rhythm with frequent , and consecutive Premature supraventricular complexes (atrial runs) Minimal voltage criteria for LVH, may be normal variant ( [place] product ) Possible Anterior infarct (cited on or before 21-Mar-2018) Prolonged QT Abnormal ECG When compared with ECG of 11-Sep-2024 06:15, Nonsustained Atrial runs are now present QRS duration has increased QT has lengthened Confirmed by Johny Rodriguez ([id number]) on 09/11/2024 6:20:15 PM Referred By: REFERRED SELF Confirmed By: Johny Rodriguez
[2024-09-11] MEDS: DOXYCYCLINE HYCLATE 100 MG in DEXTROSE 5% MINI-B 100 ML IV SCH (19:11)
[2024-09-11] MEDS: VANCOMYCIN 500 MG in NSS 100mL IV ONE (21:17)
--- NOTE | 2024-09-12 03:41 | Ultrasound Report ---
EXAM: US venous doppler UE LT CLINICAL HISTORY: HX LUE SWELLING. DIALYSIS PT, KNOWN HISTORY OF FISTULAS IN BILAT ARMS, RUE FISTULA IS THE ONE USED FOR DIALYSIS AT THIS TIME. TECHNIQUE: Ultrasound examination of left upper extremity veins was performed in real-time and duplex. One or more of the following were performed- spectral analysis, resistive index, waveform analysis, and pulsed Doppler. COMPARISON: US dated 05/30/2018. FINDINGS: Normal phasic, non-pulsatile, and spontaneous flow is noted in the left Internal jugular, subclavian, axillary, brachial, basilic, cephalic, antecubital, radial, and ulnar veins. Visualized veins of the left upper extremity demonstrate normal compressibility. No sonographic evidence of acute deep vein thrombosis (DVT) is detected in the visualized veins of the upper extremity. Compression and Augmentation: All evaluated veins compress fully with applied transducer pressure. Augmentation of venous flow is noted with distal compression. Additional Findings: Evidence of of left brachiocephalic fistula which is seen patent. There is a possible stent seen within the left cephalic vein from the mid part to the distal part of the left upper arm showing the area of shadowing within somewhat limiting the visualization of the left cephalic vein. A possible hypoechoic area was seen within the left cephalic vein at the distal upper arm suggesting thrombosis. A possible incidental finding of a small complex collection seen lateral to the brachiocephalic fistula in the distal upper arm measuring 7 x 4 x 3 mm. Left antecubital fossa and left forearm edema are noted. IMPRESSION: 1. No sonographic evidence of acute DVT was detected at the time of examination. 2. Evidence of of left brachiocephalic fistula which is seen patent. 3. There is a possible stent seen within the left cephalic vein from the mid part to the distal part of the left upper arm causing posterior shadowing limiting the visualization of the left cephalic vein. 4. A possible hypoechoic area was seen within the left cephalic vein at the distal upper arm suggesting cephalic vein partial thrombosis. 5. A possible incidental finding of a small complex collection seen lateral to the brachiocephalic fistula in the distal upper arm measuring 7 x 4 x 3 mm, This could be a small hematoma. 6. Left antecubital fossa and left forearm edema are noted. 7. Clinical correlation is advised. Disclaimer: DVT could be missed early in the disease when clot burden is minimal. For patients with moderate and high pretest probability of DVT and negative ultrasound, the [place] [employer] clinical guidelines recommend testing with a D-dimer assay or repeat ultrasound in 5-7 days. If symptoms worsen, the Society of radiologists in ultrasound recommends repeating ultrasound even earlier. Electronically signed by Betty Faust 09-12-2024 03:40 AM
[2024-09-12 06:56] LABS: Hematocrit (blood only) 26.4 % (37.0-47.0); Hemoglobin 8.6 g/dl (12.0-16.0); Mean Corpuscular Hemoglobin 30.5 pg (25.0-34.0); Mean Corpuscular Hgb Conc 32.6 g/dL (32.0-36.0); Mean Corpuscular Volume 93.6 fL (80.0-100.0); Platelet Count 11 K/uL (130-400); RDW Coefficient of Variation 17.2 % (11.5-14.5); RDW Standard Deviation 59.6 fL (36.4-46.3); Red Blood Count 2.82 M/uL (4.20-5.40); White Blood Count 5.82 K/ul (4.8-10.8)
[2024-09-12 07:05] LABS: Basophils # (auto) 0.01 K/uL (0.00-0.20); Basophils % (auto) 0.2 %; Dohle Bodies 1+; Eosinophils # (auto) 0.01 K/uL (0.00-0.50); Eosinophils % (auto) 0.2 %; Immature Granulocytes # (auto) 0.06 K/uL (0.01-0.20); Lymphocytes % (auto) 5.2 %; Monocytes # (auto) 0.51 K/uL (0.11-0.59); Monocytes % (auto) 8.8 %; Neutrophils # (auto) 4.93 K/uL (1.40-6.50); Neutrophils % (auto) 84.6 %; Ovalocytes 1+; Polychromasia 1+
[2024-09-12 07:19] LABS: Albumin Globulin Ratio 1.5 (0.9-2); Albumin Level 3.1 gm/dl (3.4-5.0); BUN Creatinine Ratio 8.1 (10-20); Bilirubin,Total 1.3 mg/dl (0.2-1.0); Calcium 9.5 mg/dl (8.6-10.3); Globulin 2.1 gm/dl (2.5-4.0); Total Protein 5.2 gm/dl (6.0-8.3)
--- NOTE | 2024-09-12 09:39 | Hospitalist Progress Note ---
Date of Service September 12, 2024 Assessment & Plan (1) ESRD on dialysis: (2) Generalized weakness: (3) Chronic systolic CHF (congestive heart failure): (4) Hypertension, essential: (5) Chest pain: (6) Stented coronary artery: (7) Ischemic cardiomyopathy: (8) Bipolar disorder: Plan Patient is a 38-year-old female with extensive past medical history including ESRD on dialysis who presented to the ED on 09/10/2024 with complaints of trouble ambulating and weakness, found to have a critically low platelet count of 29. Sepsis POA MSSA bacteremia Pneumonia Patient presented to the hospital with generalized weakness and fatigue Blood culture 3 out of 4 on admission positive for gram-positive cocci in clusters; PCR positive for MSSA CTA chest on admission did not show evidence of PE; multifocal patchy variable sized nodular infiltrate/consolidation involving both lungs, predominantly lower lobes. Continue on Zosyn; reported history of rash on cephalosporin. Also on doxycycline for possible pneumonia. Echocardiogram shows EF of 50 to 55%; moderate size apical volume motion abnormality with hypokinesis of the segment. Severe mitral annular calcification. Repeat blood culture tomorrow a.m. Infectious disease consult pending Sinus tachycardia with frequent PACs Patient had elevated heart rate of 130s on 09/11/2023 while undergoing dialysis EKG reviewed by cardiology; consistent with sinus tachycardia with PACs Severe thrombocytopenia present Echocardiogram as above Continue on metoprolol Severe thrombocytopenia Likely secondary to sepsis Platelet count of 16,000 on admission, D-dimer elevated, fibrinogen within normal limits, PT/INR, APTT within normal limits Suspect thrombocytopenia secondary to sepsis Monitor CBC daily Transfuse if platelet count is less than 10,000. will obtain CT head wo contrast to rule out ICH. ESRD on hemodialysis with history of noncompliance Hyponatremia Hyperkalemia Patient has history of missing dialysis sessions. She missed another dialysis session a day prior to admission Hyponatremia, hyperkalemia likely secondary to ESRD Dialysis as per nephrology Transaminitis: Could be viral or medication induced, trend LFTs daily, avoid hepatotoxic medications - improved Ischemic cardiomyopathy History of CAD status post stent placement; last stent in May 2024 Recent echocardiogram shows improved EF Hx asthma: Continue home inhalers Hx depression with anxiety Hx bipolar disorder Continue lorazepam/mirtazapine/Wellbutrin Hx [id number]: Last A1c on 03/2024 5.6 DVT prophylaxis SCDs in setting of severe thrombocytopenia Full code I updated patient's mom and sister at bedside. They are in agreement with the plan. Time spent evaluating patient, direct bedside care, chart review, placing orders, interpretation of diagnostic studies, discussion with consultants, patient, and family members, as well as other required patient management activities is 50 minutes Please note the above document was generated using voice recognition software. It may contain grammatical, syntax or spelling errors. Any formal questions or concerns about the content, text or information contained within the body of this dictation should be directly addressed to the provider for clarification Admission and Anticipated Discharge Date Admission Date: September 10, 2024 Subjective Patient seen and examined at bedside. She appears tired but awake given by voice. She appears to be more interactive today compared to previous day. She is following commands. She has been afebrile in last 24 hours. Review of Systems Review of Systems: All systems reviewed & are unremarkable except as noted in Subjective Physical Exam Physical Exam: Constitutional: She is awake, able to follow commands Respiratory: Bilateral decreased breath sound at bases Cardiovascular: RRR, no murmur, no edema Vessels: no JVD or carotid bruit Chest: normal inspection of chest Abdomen: normal bowel sounds, soft, nontender, Musculoskeletal: Fistula present in bilateral arm; bruit present on right fistula. Skin: no rashes, warm and dry normal turgor Neurologic: Grossly moves all extremities. Results & Data Results & Data Vital Signs (Past 12 Hours) Vital Signs Temp Pulse Pulse Resp BP Pulse Ox O2 Del Method 09/12/24 08:37 Nasal Cannula 09/12/24 07:37 36.4 C L 83 22 141/83 H 90 Nasal Cannula 09/12/24 04:25 36.6 C 75 18 142/80 H 92 Room Air 09/12/24 00:10 36.6 C 79 14 138/79 91 Room Air 09/11/24 22:58 79 O2 Flow Rate 09/12/24 08:37 2 09/12/24 07:37 2 09/12/24 04:25 09/12/24 00:10 09/11/24 22:58 (5) Chest pain Chest pain type: unspecified Qualified Code(s): R07.9 - Chest pain, unspecified
--- NOTE | 2024-09-12 11:01 | Pharmacy Report ---
Pharmacy PK ABX Note - Date of Service September 12, 2024 - Assessment and Plan Assessment 09/12 Blood cultures 3/4 MSSA. Continues on vancomycin/zosyn. ID consult pending. Redosed with 500 mg x 1 09/11 PM. Random level this AM 20.8 mcg/mL, will redose with 750 mg x 1 after planned dialysis today to ensure patient remains therapeutic. Repeat random level 09/13 09/11 38 year old F receiving vancomycin/Zosyn for treatment of bacteremia/pneumonia. Patient has a history of ESRD on HD MWF typically. Dialysis today while receiving initial loading dose. Due to severity of infection will obtain a post- HD level today for close monitoring and potential re-dosing. Pertinent microbiologic data includes: MRSA Nasal Swab pending, blood culture growing GPCs (3/4) BiofireID S. Aureus no Mec A/C resistence noted, possible infective multifocal patchy variable sized nodular infiltrate/consolidations in both lungs on CTA. Day # 1 of antimicrobial therapy. Plan Vancomycin * Random level this AM 20.8 mcg/mL with planned HD today * Redose 750 mg x 1 after dialysis today * Random level ordered for: 09/13/24 with AM labs Pharmacy will continue to follow and will adjust dose/frequency as necessary. Thank you. Pharmacy has transitioned to AUC monitoring for vancomycin. AUC/YING is the preferred PK/PD target and is associated with decreased risk of nephrotoxicity compared to traditional trough targets.
--- NOTE | 2024-09-12 12:05 | Nephrology Progress Note ---
Date of Service September 12, 2024 Assessment & Plan (1) ESRD on dialysis: Plan: missed treatment on 09/09 > volume overload contributes to hypoxia and to worsening hyperkalemia and hyponatremia Short Tx yesterday as she was very anxious. for HD today routine treatment > 4 hrs, 2K bath, UF as tolerated >>started lokelma for mild hyperkalemia yesterday, But K better today, This will further improved w/ dialysis today. >>Continue on lokelma for now( she always shortens her TX) >>Continue w/ 1.2 L FR >>Next HD will be Saturday or as clinical needs, (2) Atrial fibrillation: Plan: believe this is new for her > per primary service; low threshold for cardiology eval in setting of bacteremia, thrombocytopenia (3) Sepsis due to Staphylococcus aureus: Plan: f/u pending blood cultures > continue on Vancomycin and Zoysn (4) Chronic systolic CHF (congestive heart failure): Plan: EF 45%;Will try to optimise the Volume status w/ UF (5) Severe thrombocytopenia: Plan: plts 29K on admission; extensive w/u underway; new; ? 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 She appears tired but awake given by voice. She has been afebrile in last 24 hours Review of Systems 2 Review of Systems: All systems reviewed & are unremarkable except as noted in HPI & below Physical Exam 2 Physical Exam: Constitutional: Episodic disorientation, Could tell me where she was.Reports generalized aches/pain. Respiratory: Bilateral decreased breath sound at bases Cardiovascular: RRR, no murmur, no edema Vessels: no JVD or carotid bruit Chest: normal inspection of chest Abdomen: normal bowel sounds, soft, nontender, no hepatosplenomegaly Musculoskeletal: Fistula present in bilateral arm; bruit present on right fistula. Skin: no rashes, warm and dry normal turgor Neurologic: Grossly moves all extremities. Results & Data Vital Signs (Past 12 Hours) Vital Signs Temp Pulse Pulse Resp BP BP Pulse Ox 09/12/24 11:30 76 141/80 H 09/12/24 11:00 72 129/89 09/12/24 10:30 76 130/72 09/12/24 10:00 77 141/64 H 09/12/24 09:39 36.5 C 78 09/12/24 09:37 75 09/12/24 08:37 09/12/24 07:37 36.4 C L 83 22 141/83 H 90 09/12/24 04:25 36.6 C 75 18 142/80 H 92 09/12/24 00:10 36.6 C 79 14 138/79 91 O2 Del Method O2 Flow Rate 09/12/24 11:30 09/12/24 11:00 09/12/24 10:30 09/12/24 10:00 09/12/24 09:39 09/12/24 09:37 09/12/24 08:37 Nasal Cannula 2 09/12/24 07:37 Nasal Cannula 2 09/12/24 04:25 Room Air 09/12/24 00:10 Room Air Laboratory Results 09/12/24 06:02 09/12/24 06:02
--- NOTE | 2024-09-12 14:12 | CT Scan Report ---
EXAM: CT Head Without Intravenous Contrast INDICATION: Thrombocytopenia. TECHNIQUE: Axial computed tomography images of the head/brain without intravenous contrast. Sagittal and/or coronal reformats are provided. Sagittal and coronal reformatted images were created and reviewed. This CT exam was performed using one or more of the following dose reduction techniques: automated exposure control, adjustment of the mA and/or kV according to patient size, and/or use of iterative reconstruction technique. COMPARISON: 12/28/2017 FINDINGS: Limitations: None. Brain and extra-axial spaces: There is age appropriate cortical atrophy and chronic ischemic periventricular white matter hypodensity. No acute infarct, hemorrhage or mass noted. Old lacunar infarct left basal ganglia has occurred in the interval. Bones/joints: No acute changes. Soft tissues: No significant abnormality noted. Vasculature: No acute abnormality noted. Sinuses: No layering fluid in the visualized portions of the paranasal sinuses. Mastoid air cells: No mastoid effusion. Orbits: No significant abnormality noted. IMPRESSION: Cerebral atrophy. No acute changes. No hemorrhage. ACT 112: Negative or not required by law. Electronically signed by Ksenia Mejia 09-12-2024 2:12 PM
[2024-09-12 15:48] LABS: Adenovirus F 40/41 PCR Not Detected (NotDetected); Astrovirus PCR Not Detected (NotDetected); Campylobacter PCR Not Detected (NotDetected); Cryptosporidium PCR Not Detected (NotDetected); Cyclospora cayetanensis PCR Not Detected (NotDetected); Entamoeba histolytica PCR Not Detected (NotDetected); Enteroaggregative E.coli(EAEC) Not Detected (NotDetected); Enteropathogenic E.coli (EPEC) Not Detected (NotDetected); Enterotoxigenic E.coli (ETEC) Not Detected (NotDetected); Giardia lamblia PCR Not Detected (NotDetected); Norovirus GI/GII PCR Not Detected (NotDetected); Plesiomonas shigelloides PCR Not Detected (NotDetected); Rotavirus A PCR Not Detected (NotDetected); Salmonella PCR Not Detected (NotDetected); Sapovirus PCR Not Detected (NotDetected); Shiga-like Toxin E.coli (STEC) Not Detected (NotDetected); Shigella/Enteroinvasive E.coli Not Detected (NotDetected); Vibrio cholerae PCR Not Detected (NotDetected); Vibrio species PCR Not Detected (NotDetected); Yersinia enterocolitica PCR Not Detected (NotDetected)
[2024-09-12] MEDS ORDERED: SODIUM CHLORIDE 0.9% 50 ML IV PRN (16:48)
[2024-09-12] MEDS ORDERED: SODIUM CHLORIDE 0.9% 100 ML IV PRN (16:48)
[2024-09-12] MEDS: VANCOMYCIN 750 MG in SODIUM CHLORIDE 0.9% 250 ML IV ONE (17:02)
[2024-09-12] MEDS: CYCLOBENZAPRINE HCL 5 MG TAB PO PRN (17:02)
[2024-09-12] MEDS: PROMETHAZINE 6.25 MG/50.25 ML BAG IV STA (21:47)
[2024-09-12] MEDS: METOPROLOL TARTRATE 1 MG/ML VIAL IV STA (23:25)
[2024-09-13] MEDS: METOPROLOL TARTRATE 1 MG/ML VIAL IV STA (04:25)
[2024-09-13 06:37] LABS: BUN Creatinine Ratio 8.9 (10-20); Calcium 9.2 mg/dl (8.6-10.3); Creatinine Clr Calc Pharmacy 17.5 ml/min; Potassium 3.8 mmol/L (3.5-5.1)
[2024-09-13 07:13] LABS: Fibrinogen 378 mg/dl (184-400); INR 1.7 (0.9-1.1); Prothrombin Time 17.9 Seconds (9.0-12.0)
--- NOTE | 2024-09-13 12:01 | Hospitalist Progress Note ---
Date of Service September 13, 2024 Assessment & Plan (1) ESRD on dialysis: (2) Generalized weakness: (3) Chronic systolic CHF (congestive heart failure): (4) Hypertension, essential: (5) Chest pain: (6) Stented coronary artery: (7) Ischemic cardiomyopathy: (8) Bipolar disorder: Plan Patient is a 38-year-old female with extensive past medical history including ESRD on dialysis who presented to the ED on 09/10/2024 with complaints of trouble ambulating and weakness, found to have a critically low platelet count of 29. Sepsis POA MSSA bacteremia Pneumonia Toxic encephalopathy Patient presented to the hospital with generalized weakness and fatigue Blood culture 3 out of 4 on admission Growing MSSA CTA chest on admission did not show evidence of PE; multifocal patchy variable sized nodular infiltrate/consolidation involving both lungs, predominantly lower lobes. Continue on Zosyn; reported history of rash on cephalosporin. Also on doxycycline for possible pneumonia.Discontinue vancomycin Echocardiogram shows EF of 50 to 55%; moderate size apical volume motion abnormality with hypokinesis of the segment. Severe mitral annular calcification. Repeat blood culture 09/13 pending Infectious disease consult pending Will obtain ABG to rule out CO2 retention along with MRI brain without contrast to rule out stroke given her altered mental status. Sinus tachycardia with frequent PACs Patient had elevated heart rate of 130s on 09/11/2023 while undergoing dialysis EKG reviewed by cardiology; consistent with sinus tachycardia with PACs Severe thrombocytopenia present Echocardiogram as above Patient continues to have periods Of tachycardia overnight on 09/13; possible burst of atrial fibrillation. Patient cannot be given anticoagulation due to thrombocytopenia. Continue on metoprolol. Severe thrombocytopenia Likely secondary to sepsis Platelet count of 16,000 on admission, D-dimer elevated, fibrinogen within normal limits, Suspect thrombocytopenia secondary to sepsis Monitor CBC daily CT head without contrast obtained on 09/12no acute finding Status post 1 unit of platelet transfused on 09/12 To be given on the unit of platelet on 09/13 Discussed with hematology on 09/12; will obtain [id number] as per recommendation. ESRD on hemodialysis with history of noncompliance Hyponatremia Hyperkalemia Patient has history of missing dialysis sessions. She missed another dialysis session a day prior to admission Hyponatremia, hyperkalemia likely secondary to ESRD Dialysis as per nephrology Transaminitis: Could be viral or medication induced, trend LFTs daily, avoid hepatotoxic medications - improved Ischemic cardiomyopathy History of CAD status post stent placement; last stent in May 2024 Recent echocardiogram shows improved EF Hx asthma: Continue home inhalers Hx depression with anxiety Hx bipolar disorder Continue lorazepam/mirtazapine/Wellbutrin Hx [id number]: Last A1c on 03/2024 5.6 DVT prophylaxis SCDs in setting of severe thrombocytopenia Full code I updated patient's mom and sister at bedside. They are in agreement with the plan. Time spent evaluating patient, direct bedside care, chart review, placing orders, interpretation of diagnostic studies, discussion with consultants, patient, and family members, as well as other required patient management activities is 50 minutes Please note the above document was generated using voice recognition software. It may contain grammatical, syntax or spelling errors. Any formal questions or concerns about the content, text or information contained within the body of this dictation should be directly addressed to the provider for clarification Admission and Anticipated Discharge Date Admission Date: September 10, 2024 Subjective Patient seen and examined at bedside multiple times during the day. She is sleepy; opens her eyes spontaneously. Able to answer few questions. Tmax of 37.7 C last 24 hours Telemetry shows short burst of possible atrial fibrillation Review of Systems Review of Systems: Unobtainable due to reduced consciousness Physical Exam Physical Exam: Constitutional: She is awake, able to follow commands Respiratory: Bilateral decreased breath sound at bases Cardiovascular: RRR, no murmur, no edema Vessels: no JVD or carotid bruit Chest: normal inspection of chest Abdomen: normal bowel sounds, soft, nontender, Musculoskeletal: Fistula present in bilateral arm; bruit present on right fistula. Skin: no rashes, warm and dry normal turgor Neurologic: Grossly moves all extremities. Results & Data Results & Data Vital Signs (Past 12 Hours) Vital Signs Temp Pulse Pulse Resp BP BP Pulse Ox 09/13/24 11:54 36.9 C 77 19 136/84 90 09/13/24 09:00 81 09/13/24 08:09 09/13/24 07:50 36.9 C 81 21 143/84 H 93 09/13/24 04:56 126 H 112/66 09/13/24 04:25 140 H 135/94 09/13/24 03:45 37.0 C 75 20 136/74 93 09/13/24 00:39 85 O2 Del Method O2 Flow Rate 09/13/24 11:54 Room Air 09/13/24 09:00 09/13/24 08:09 Nasal Cannula 2 09/13/24 07:50 Room Air 09/13/24 04:56 09/13/24 04:25 09/13/24 03:45 Nasal Cannula 2 09/13/24 00:39 (5) Chest pain Chest pain type: unspecified Qualified Code(s): R07.9 - Chest pain, unspecified
[2024-09-13 12:21] LABS: Hematocrit (blood only) 25.5 % (37.0-47.0); Hemoglobin 8.3 g/dl (12.0-16.0); Mean Corpuscular Hemoglobin 30.9 pg (25.0-34.0); Mean Corpuscular Hgb Conc 32.5 g/dL (32.0-36.0); Mean Corpuscular Volume 94.8 fL (80.0-100.0); Platelet Count 13 K/uL (130-400); RDW Coefficient of Variation 17.2 % (11.5-14.5); RDW Standard Deviation 59.8 fL (36.4-46.3); Red Blood Count 2.69 M/uL (4.20-5.40)
[2024-09-13] MEDS ORDERED: SODIUM CHLORIDE 0.9% 50 ML IV PRN (12:29)
[2024-09-13] MEDS ORDERED: SODIUM CHLORIDE 0.9% 100 ML IV PRN (12:29)
[2024-09-13 12:59] LABS: Basophils # (auto) 0.01 K/uL (0.00-0.20); Basophils % (auto) 0.1 %; Eosinophils # (auto) 0.01 K/uL (0.00-0.50); Eosinophils % (auto) 0.1 %; Immature Granulocytes # (auto) 0.06 K/uL (0.01-0.20); Immature Granulocytes % (auto) 0.8 %; Lymphocytes # (auto) 0.46 K/uL (1.20-3.40); Lymphocytes % (auto) 6.5 %; Monocytes # (auto) 0.74 K/uL (0.11-0.59); Monocytes % (auto) 10.4 %; Neutrophils # (auto) 5.82 K/uL (1.40-6.50); Neutrophils % (auto) 82.1 %; Ovalocytes 2+; Platelet Estimate Signific. Decreased (Normal)
[2024-09-13 13:30] LABS: Base Excess ABG 4.2 mEq/L (-9-1.8); HCO3 ABG 27 mmol/L (19-24); Oxygen Saturation ABG 92.8 % (90-95); PCO2 ABG 35 mmHg (35-46); PO2 ABG 65 mmHg (80-95)
[2024-09-13 13:31] LABS: Allen Test Pos (Pos)
[2024-09-13] MEDS: NALOXONE HCL 0.4 MG/1 ML VIAL/CARP IV STA (14:39)
[2024-09-13] MEDS ORDERED: fentaNYL BOLUS from BAG IV PRN (14:48)
[2024-09-13] MEDS ORDERED: STAT IV Infusion **Titration per Protocol STA ×2 (14:48→14:49)
[2024-09-13] MEDS ORDERED: PROPOFOL BOLUS FROM BAG IV PRN (14:49)
[2024-09-13 14:56] LABS: iSTAT Allen Test Pass; iSTAT Art Bld Gas pCO2 Correct 43 mmHg (35-46); iSTAT Art Bld Gas pH Corrected 7.294 (7.35-7.45); iSTAT Arterial Blood Gas HCO3 21 meg/L (19-24); iSTAT Arterial Blood Gas pCO2 43 mmHg (35-46); iSTAT Arterial Blood Gas pH 7.29 (7.35-7.45); iSTAT Arterial Blood Gas pO2 80 mmHg (80-95); iSTAT Arterial Blood Gas pO2 C 80; iSTAT Carbon Dioxide 22 mmol/L (24-31); iSTAT Hematocrit 28 % (37-47); iSTAT Hemoglobin 9.5 g/dl (12.0-16.0); iSTAT Potassium 4.8 mmol/L (3.3-5.0); iSTAT Sample Type Arterial; iSTAT Site L Radial; iSTAT Sodium 134 mmol/L (135-144); iSTAT SpO2 99
[2024-09-13] MEDS: fentaNYL citrate 2,500 MCG/250 ML BAG IV SCH (15:00)
[2024-09-13] MEDS: propofoL 1,000 MG/100 ML VIAL IV SCH (15:00)
[2024-09-13] MEDS: NALOXONE HCL 0.4 MG/1 ML VIAL/CARP ONE (15:17)
[2024-09-13] MEDS: RAPID SEQUENCE INDUCTION BAG ONE (15:17)
--- NOTE | 2024-09-13 15:25 | Procedure Note ---
Procedure Note Date of Service September 13, 2024 INTUBATION PROCEDURE NOTE: Dr. Ji Trinh A time-out was completed verifying correct patient, procedure, site, positioning. Patient was evaluated and required intubation for hypoxemic respiratory failure and airway management. Sedative agent used: None Paralysis agent used: None Emergent consent was implied given patients rapidly declining clinical status and need for airway protection. Number of attempts: 1 The patient was prepared in the appropriate fashion. No sedation was utilized. Ketamine was given directly after the intubation for patient comfort. The patient was easily ventilated using [id number] to achieve adequate oxygenation. A 7.5 German endotracheal tube was placed under glide scope guidance to 26 cm at the lip. The stylette was removed and balloon was inflated with 10mL of air. Appropriate Colorimetric change was appreciated. Bilateral breath sounds were heard without air sounds in the abdomen. Post Intubation Chest X-ray ordered which revealed a right mainstem intubation. ET tube was pulled back 4 cm with appropriate positioning on subsequent chest x- ray. Patient tolerated the procedure well and there were no immediate complications. [facility] Procedure Codes (Charges) Resuscitation Resuscitation: [id number] Endotracheal Intubation, emergency Coding CPT Codes Resuscitation - Resuscitation: [id number] Endotracheal Intubation, emergency ([id number]) Additional Codes Date of Service (PG.[email or web address])
[2024-09-13] MEDS ORDERED: VANCOMYCIN CONSULT ACTIVE PRN (15:30)
[2024-09-13 15:37] LABS: Hematocrit (blood only) 25.4 % (37.0-47.0); Hemoglobin 8.3 g/dl (12.0-16.0); Mean Corpuscular Hemoglobin 31.4 pg (25.0-34.0); Mean Corpuscular Hgb Conc 32.7 g/dL (32.0-36.0); Mean Corpuscular Volume 96.2 fL (80.0-100.0); Platelet Count 22 K/uL (130-400); RDW Coefficient of Variation 17.5 % (11.5-14.5); RDW Standard Deviation 62.2 fL (36.4-46.3); Red Blood Count 2.64 M/uL (4.20-5.40); White Blood Count 11.13 K/ul (4.8-10.8)
[2024-09-13] MEDS: fentaNYL citrate 2,500 MCG/250 ML BAG IV ONE (15:41)
[2024-09-13] MEDS: PROPOFOL IV EMULSION 10 MG/ML 100 ML VIAL IV ONE (15:42)
[2024-09-13 15:48] LABS: Albumin Level 3.2 gm/dl (3.4-5.0); BUN Creatinine Ratio 9.4 (10-20); Bilirubin Direct 0.8 mg/dl (0-0.2); Bilirubin,Total 1.7 mg/dl (0.2-1.0); Calcium 9.2 mg/dl (8.6-10.3); Creatinine Clr Calc Pharmacy 15.5 ml/min; Magnesium 2.3 mg/dl (1.7-2.4); Potassium 4.3 mmol/L (3.5-5.1); Total Protein 5.4 gm/dl (6.0-8.3)
--- NOTE | 2024-09-13 15:49 | Critical Care Consultation ---
Date of Consultation September 13, 2024 Assessment & Plan (1) Acute metabolic encephalopathy: (2) Severe sepsis: (3) MSSA bacteremia: (4) Severe thrombocytopenia: (5) Septic embolism: (6) Lactic acidosis: (7) Transaminasemia: (8) Elevated troponin I measurement: Plan Complex 38-year-old female with a history of end-stage renal disease status post failed renal transplant who presented to the hospital for lethargy and was found to have sepsis secondary to MSSA bacteremia. CT chest was also suspicious for septic emboli. She ultimately presented to the ICU 09/13/2024 due to acute encephalopathy and hypoxemia. She was intubated 09/13/2024. Neurologic: Patient profoundly encephalopathic. MRI brain pending. Possible embolic source of encephalopathy. Other possibilities include sepsis. CT head completed yesterday was negative for hemorrhagic stroke. Ammonia levels pending given rising LFTs. BUN checked earlier in the day was minimally responsive. Urine tox screen pending. Patient given 0.4 mg of Narcan with no response. Continue propofol fentanyl. Hold bupropion given the concern for possible decreasing of the seizure threshold. Pulmonary: Intubated for airway protection given poor ventilatory status and severe encephalopathy. CTA earlier this admission revealed probable septic emboli from MSSA bacteremia. Continue lung protective ventilation strategy. Cardiovascular: Patient hypertensive on arrival to ICU. Hypertension improved with the use of sedation. Will hold oral antihypertensives for the time being. Hold antiplatelets and anticoagulants. Troponin elevated likely due to demand ischemia. EKG nonischemic appearing. Gastrointestinal: N.p.o. for the time being. Protonix 40 daily given severe thrombocytopenia and anemia. Patient with transaminitis of unclear etiology. Acute hepatitis panel is pending. Renal: End-stage renal disease on hemodialysis every Saturday, and Saturday. No indication for hemodialysis today. Lactate severely elevated. Possible severe sepsis versus ischemic colitis versus ischemic hepatitis. Infectious disease: Repeat urinalysis and blood cultures pending. Antibiotics transition from Zosyn to vancomycin and aztreonam. Continue doxycycline. Hematologic: Hematology consultation noted. IP 4 antibody pending. Possible sepsis coagulopathy. No evidence of DIC. Out of 13 is pending. Endocrine: Maintain euglycemia. TSH unremarkable. VTE prophylaxis: SCDs CODE STATUS: Full Family at bedside: Extensive family updated at bedside including patient's mother and adult son. Disposition: ICU I have personally spent 44 minutes of critical care time in the direct management of this patient. This is a life/limb threatening event. This includes time spent evaluating patient, direct bedside care, chart review, placing orders, interpretation of diagnostic studies, discussion with consultants, patient, and family members, as well as other required patient management activities. This time is exclusive of all separately billable procedures, and teaching time and separate from and in addition to any other critical care service time. Thank you for allowing us to participate in the care of this patient. History of Present Illness Reason for Consultation: Acute encephalopathy and hypoxemic respiratory failure Attending Physician: Arthur Pandey MD History of Present Illness 38-year-old female with a history of end-stage renal disease and noncompliance, ischemic cardiomyopathy, asthma, depression, anxiety, bipolar disorder, type 2 diabetes mellitus who initially presented to the hospital due to weakness and fatigue. Patient has had poor p.o. intake as of late per family. Richie ladonna was called today due to the patient being profoundly encephalopathic and sonorous. She was brought over to the ICU where she was emergently intubated by me due to ongoing hypoxemia and metabolic encephalopathy. Upon review of the hospitalist notes and general chart, it appears the patient had MSSA bacteremia earlier this hospitalization and has been on Zosyn and doxycycline. Patient is also had ongoing progressive thrombocytopenia and hematology was reviewed the patient. I P4 antibody is pending. Tickborne illness peripheral smear was performed and was negative. Fibrinogen has been unremarkable. INR has been trending upwards along with LFTs. EKG did not reveal any ischemic changes. Allergies Allergy/AdvReac Type Severity Reaction Status Date / Time cefaclor Allergy Intermediate Rash Verified 09/10/24 17:09 Cephalosporins Allergy Intermediate Rash Verified 09/10/24 17:09 amoxicillin AdvReac Intermediate VOMITING Verified 09/10/24 17:09 clavulanic acid AdvReac Intermediate VOMITING Verified 09/10/24 17:09 Home Medications Medication Instructions Recorded Confirmed Type carbamazepine 200 mg tablet 200 mg PO AMPM 06/08/23 09/10/24 History hydroxyzine HCl 25 mg tablet 25 mg PO Q6H PRN Anxiety 06/08/23 09/10/24 History lorazepam 0.5 mg tablet 0.5 mg PO Q8H PRN Anxiety 06/08/23 09/10/24 History vitamin B complex-vitamin C-folic 1 tab PO QAM 06/08/23 09/10/24 History acid 0.8 mg tablet (Renal-Rika) benzonatate 100 mg capsule 200 mg PO TID PRN Cough 08/29/23 09/10/24 History calcium acetate(phosphat bind) 667 2,001 mg PO UD 08/29/23 09/10/24 History mg capsule medroxyprogesterone 150 mg/mL 150 mg IM .EVERY 3 MONTHS 08/29/23 09/10/24 History intramuscular suspension (Depo-Provera) lidocaine 5 % topical ointment 1 applic topical QID PRN pain #30 04/11/24 09/10/24 Rx grams bupropion HCl 150 mg 24 hr tablet, 150 mg PO QAM 04/17/24 09/10/24 History extended release mirtazapine 7.5 mg tablet 7.5 mg PO HS 04/17/24 09/10/24 History aspirin 81 mg tablet,delayed 81 mg PO QAM #30 tabs 05/09/24 09/10/24 Rx release clopidogrel 75 mg tablet 75 mg PO QAM #30 tabs 05/09/24 09/10/24 Rx amlodipine 2.5 mg tablet 2.5 mg PO QAM 07/24/24 09/10/24 History atorvastatin 40 mg tablet 40 mg PO QPM 07/24/24 09/10/24 History metoprolol succinate 50 mg 50 mg PO BID 07/24/24 09/10/24 History tablet,extended release 24 hr oxycodone-acetaminophen 5 mg-325 1 tab PO Q8H PRN pain #15 tabs 08/10/24 09/10/24 Rx mg tablet (Percocet) cyclobenzaprine 5 mg tablet 5 mg PO Q8H PRN Muscle Spasm 09/10/24 09/10/24 History varenicline tartrate 1 mg tablet 1 mg PO BID 09/10/24 09/10/24 History Patient History Medical History HTN (hypertension) Ischemic cardiomyopathy Status post insertion of drug-eluting stent into left anterior descending (LAD) artery Coronary artery disease ESRD (end stage renal disease) on dialysis Substernal chest pain Atypical chest pain Anemia Atypical chest pain CHF (congestive heart failure) Depression with anxiety DM2 (diabetes mellitus, type 2) Mood disorder Anxiety disorder, unspecified Abnormal chest xray Elevated lactic acid level Transaminitis Pneumonia Metabolic encephalopathy Acute non-ST elevation myocardial infarction (NSTEMI) Pulmonary edema Acute hyperkalemia Acute alteration in mental status Renal failure (ARF), acute on chronic Encephalopathy Facial fracture GI bleed ESRD (end stage renal disease) on dialysis Symptomatic anemia Tobacco abuse DVT prophylaxis Fistula right arm (currently being used) and left arm Dialysis patient [facility] GERD (gastroesophageal reflux disease) Bipolar disorder Restless leg syndrome Peripheral neuropathy Asthma rare res inh use History of abnormal cervical Papanicolaou smear Elevated troponin Acute electrocardiogram changes Surgical History S/P right coronary artery (RCA) stent placement History of heart artery stent H/O eye surgery LASER SURGERY LEFT History of surgery left arm d/t clot in arm from AV fistula use @ [facility] History of surgery (~09/09/20) perm cath > since removed History of colonoscopy Kidney transplant recipient 2013 AT [facility] History of tooth extraction three TOOTH History of cardiac cath 2016 NO STENTS AVF (arteriovenous fistula) bilat upper arms ---currently using right for dialysis Family History Grandmother Hx of CABG Mother Diabetes Father Crohn's disease Grandfather (Maternal) Diabetes Uncle Diabetes Grandmother (Maternal) Family history of reaction to anesthesia difficulty waking with colonoscopy Social History Smoking Status: Former smoker Tobacco Type: Cigarettes Cigarettes Per Day: 20; Second Hand Exposure: No; Do You Dip or Chew Tobacco: No; Tobacco Cessation Education Requested by Patient: No Hx Alcohol Use: No Hx Substance Use: No Preferred Language: Arabic Communication Ability: Effective Auto Body Worker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 Beliefs That Will Affect Care: None marital status: Single Current Living Situation: Family Current Living Situation Comment: with grandparents How many Children do You have: 3 Other Information That Helps Us Care for You: No Feels Safe at Home: Yes Safety Concerns: Feels Safe At This Time Assistive Devices: None Review of Systems Review of Systems: Unobtainable due to reduced consciousness Physical Exam Physical Exam: Constitutional: Obese appearing patient in severe distress. Obtunded and sonorous. Eyes: Pupils are equal round and reactive to light. Conjunctivae are normal. Anicteric sclera. Ears nose, mouth and throat: Mallampati class 4. Normal posterior oropharynx. Uvula is midline. Neck: Trachea is midline. Visual inspection is normal. Respiratory: Coarse bilaterally with severe tachypnea. Retractions noted. Cardiovascular: Regular rate and rhythm. No murmurs. No edema. Gastrointestinal: Normal bowel sounds, soft, nontender and nondistended. No hepatosplenomegaly noted. Musculoskeletal: Patient is able to move all extremities. Strength is 5 out of 5 in the upper and lower extremities. Skin: No rashes, warm dry and intact. Ischemic appearing. Collateral blood vessels noted throughout her abdomen and chest. Neurologic: GCS 3. Psychiatric: Obtunded and unable to assess psychiatric status. Results & Data Results & Data Vital Signs (Past 12 Hours) Vital Signs Temp Pulse Pulse Pulse Resp BP BP 09/13/24 15:00 78 24 09/13/24 13:59 36.8 C 83 16 155/81 H 09/13/24 13:51 79 09/13/24 13:12 36.9 C 79 16 147/67 H 09/13/24 11:54 36.9 C 77 19 136/84 09/13/24 09:00 81 09/13/24 08:09 09/13/24 07:50 36.9 C 81 21 143/84 H 09/13/24 04:56 126 H 112/66 09/13/24 04:25 140 H 135/94 09/13/24 03:45 37.0 C 75 20 136/74 Pulse Ox O2 Del Method O2 Flow Rate FiO2 09/13/24 15:00 98 40 09/13/24 13:59 94 Room Air 09/13/24 13:51 09/13/24 13:12 95 09/13/24 11:54 90 Room Air 09/13/24 09:00 09/13/24 08:09 Nasal Cannula 2 09/13/24 07:50 93 Room Air 09/13/24 04:56 09/13/24 04:25 09/13/24 03:45 93 Nasal Cannula 2 Coding Level of Care Code 01167 CRITICAL CARE 1ST 30-74M Diagnoses Acute metabolic encephalopathy G93.41 Severe sepsis A41.9; R65.20 MSSA bacteremia R78.81; B95.61 Severe thrombocytopenia D69.6 Septic embolism I76 Lactic acidosis E87.20 Transaminasemia R74.01 Elevated troponin I measurement R79.89
--- NOTE | 2024-09-13 15:49 | XRay Report ---
EXAM: Radiograph of the Chest 1 View INDICATION: Intubation. TECHNIQUE: Frontal view of the chest. COMPARISON: 09/10/2024 FINDINGS: Lungs and pleural spaces: There is increased consolidation in the left lower lung. No pleural effusion or pneumothorax. Heart: Stable large cardiac shadow. Mediastinum: Normal contour. Bones/joints: No fracture, erosion or dislocation. Soft tissues: Brachiocephalic and right axillary stents unchanged. Tubes, lines and devices: The endotracheal tube terminates 1.6 cm above the rk. Upper abdomen: No abnormality noted. IMPRESSION: 1. There is increased consolidation in the left lower lung. Pneumonia and atelectasis related to mucous plugging considered. 2. Lines and tubes as above. ACT 112: Negative or not required by law. Electronically signed by Ksenia Mejia 09-13-2024 3:48 PM
--- NOTE | 2024-09-13 15:50 | Pharmacy Report ---
Pharmacy PK ABX Note - Date of Service September 13, 2024 - Assessment and Plan Assessment 09/13 Vancomycin initially discontinued this morning, restarted after code purple called. Patient now intubated and transferred to ICU. Zosyn has been changed to aztreonam. Random vancomycin level 23.7 mcg/mL today- no dialysis planned. Will obtain random level for 09/14 AM to assist with post dialysis dose if performed as planned tomorrow. 09/12 Blood cultures 3/4 MSSA. Continues on vancomycin/zosyn. ID consult pending. Redosed with 500 mg x 1 09/11 PM. Random level this AM 20.8 mcg/mL, will redose with 750 mg x 1 after planned dialysis today to ensure patient remains therapeutic. Repeat random level 09/13 09/11 38 year old F receiving vancomycin/Zosyn for treatment of bacteremia/pneumonia. Patient has a history of ESRD on HD MWF typically. Dialysis today while receiving initial loading dose. Due to severity of infection will obtain a post- HD level today for close monitoring and potential re-dosing. Pertinent microbiologic data includes: MRSA Nasal Swab pending, blood culture growing GPCs (3/4) BiofireID S. Aureus no Mec A/C resistence noted, possible infective multifocal patchy variable sized nodular infiltrate/consolidations in both lungs on CTA. Day # 1 of antimicrobial therapy. Plan Vancomycin * Random level this AM 23.7 mcg/mL without plan for dialysis * Will not redose today * Random level ordered for: 09/14/24 with AM labs Pharmacy will continue to follow and will adjust dose/frequency as necessary. Thank you. Pharmacy has transitioned to AUC monitoring for vancomycin. AUC/YING is the preferred PK/PD target and is associated with decreased risk of nephrotoxicity compared to traditional trough targets.
[2024-09-13 15:51] LABS: Troponin I High Sensitivity 1984.4 pg/ml (0-14)
[2024-09-13 15:55] LABS: INR 1.8 (0.9-1.1); Partial Thromboplastin Ratio 1.2; Partial Thromboplastin Time 32 Seconds (21-31); Prothrombin Time 18.2 Seconds (9.0-12.0)
[2024-09-13] MEDS: AZTREONAM 1,000 MG in DEXTROSE 5% MINI-B 100 ML IV SCH (15:59)
[2024-09-13 16:05] LABS: Basophils # (auto) 0.01 K/uL (0.00-0.20); Basophils % (auto) 0.1 %; Eosinophils # (auto) 0.02 K/uL (0.00-0.50); Eosinophils % (auto) 0.2 %; Immature Granulocytes # (auto) 0.09 K/uL (0.01-0.20); Immature Granulocytes % (auto) 0.8 %; Lymphocytes # (auto) 0.72 K/uL (1.20-3.40); Lymphocytes % (auto) 6.5 %; Monocytes # (auto) 1.05 K/uL (0.11-0.59); Monocytes % (auto) 9.4 %; Neutrophils # (auto) 9.24 K/uL (1.40-6.50)
[2024-09-13] MEDS: OPTIRAY 320 125ml IV ONE (16:56)
--- NOTE | 2024-09-13 17:06 | CT Scan Report ---
EXAMINATION: CT angiogram of the abdomen and pelvis performed after the administration of IV contrast TECHNIQUE: Helical CT images from the lung bases through the symphysis pubis were obtained with contrast. Coronal and sagittal reformatted images were generated at a workstation for further assessment. Dose reduction techniques were achieved by using automatic exposure control and/or adjustment of mA and/or kV according to patient size and/or use of iterative reconstruction technique. COMPARISON: 08/10/2024 HISTORY: Abdominal pain FINDINGS: Lower chest: Trace pleural effusions. The heart is enlarged. There is reflux of contrast into the IVC. Liver: No suspicious liver lesions. Portal veins appear patent. Gallbladder: Cholecystectomy. Spleen: Normal size. Pancreas: No suspicious pancreatic lesions. The pancreatic duct is not dilated. Adrenal glands: No adrenal nodules. Kidneys: No hydronephrosis or obstructing renal stones. A calcified mass in the right lower quadrant, may represent an old renal transplant or possibly an old area of hematoma or ischemia. Severely atrophic [place] kidneys. There are a few scattered renal cysts. Bladder / Pelvic organs: Unremarkable. Bowel: No bowel obstruction. A few loops of small bowel jejunum in the left upper abdomen demonstrate mild wall thickening. The appendix is unremarkable. Lymph nodes: No retroperitoneal, mesenteric, or pelvic lymphadenopathy. Peritoneum / Retroperitoneum: No free fluid or air within the abdomen. Vessels: No infrarenal aortic aneurysm. Moderate aortoiliac calcification. Grossly patent celiac artery, SMA, and SORAIDA. The [place] renal arteries are not well-opacified, likely due to chronic renal failure. Bones and soft tissues: No suspicious lesion in the bones. Part 2 visualized arteriovenous fistula in the right arm. There are numerous venous collaterals over the anterior chest wall, with increased enhancement anteriorly at the left lobe of the liver compatible with a heart quadrate lobe. Healing fracture deformity of the left inferior and superior pubic rami. IMPRESSION: A few loops of small bowel jejunum in the left upper quadrant demonstrate mild wall thickening, which may be seen with mild ischemia. 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 Electronically signed by Daljit Alfonso 09-13-2024 5:06 PM
--- NOTE | 2024-09-13 17:38 | Magnetic Resonance Report ---
MRI of the brain performed without IV contrast History: Ventilated. Evaluate for stroke Comparison: None Technique: Sagittal T1-weighted and axial T2-weighted, T2/FLAIR and diffusion-weighted with ADC map images of the brain were obtained without IV contrast. Findings: No evidence for intracranial mass lesion, mass-effect, midline shift, or abnormal extra-axial fluid collection. The ventricles and sulci are within normal limits for age. Scattered small foci of restricted diffusion suggesting acute infarct. There is a rounded 8 mm region in the left anterior thalamic nucleus. Few tiny foci along the left body and head of the caudate nucleus. Punctate focus in the right posterior limb internal capsule. There are a few scattered punctate foci in the posterior temporal lobes and occipital lobes bilaterally. A small region of acute infarct is seen at the cortex of the medial right occipital lobe measuring 1.8 cm in transverse diameter. There are numerous scattered tiny infarcts throughout the cerebellar hemispheres, as well as an infarct in the left cerebellar hemisphere measuring 14 mm. Normal intravascular flow voids. Bilateral mastoid air cell effusions. Impression: Numerous foci of acute infarct, primarily throughout the posterior cerebral hemispheres and throughout the cerebellum. There is an infarct of the left thalamus and left caudate nucleus as well. Electronically signed by Daljit Alfonso 09-13-2024 5:37 PM
[2024-09-13] MEDS: PANTOprazole 40 MG/10 ML SYR IV SCH (17:53)
[2024-09-13] MEDS: PHYTONADIONE 10 MG in DEXTROSE 5% 50 ML IV STA (17:53)
[2024-09-13] MEDS: AZTREONAM 2,000 MG in DEXTROSE 5% MINI-B 100 ML IV SCH (17:53)
--- NOTE | 2024-09-13 18:06 | XRay Report ---
Abdominal radiograph, one view History: Abdominal pain Comparison: Same-day CT Findings: Single AP view of the abdomen performed. The bowel gas pattern appears nonobstructive. NG/OG tube sidehole projects over the stomach. There is moderate gaseous distention of the transverse colon. Cholecystectomy clips. No pneumatosis or portal venous gas. No abnormal calcifications project over the abdomen. No acute abnormality of the bony structures. Impression: Nonobstructive bowel gas pattern. NG/OG tube sidehole projects over the stomach. Electronically signed by Daljit Alfonso 09-13-2024 6:06 PM
[2024-09-13] MEDS ORDERED: DEXTROSE 50% 50 ML SYRINGE IV PRN (18:14)
[2024-09-13] MEDS ORDERED: GLUCOSE 40% GEL 15 GM TUBE PO PRN (18:14)
[2024-09-13] MEDS ORDERED: GLUCOSE 10 TAB/TUBE PO PRN (18:14)
[2024-09-13] MEDS ORDERED: CARBOHYDRATES FOR HYPOGLYCEMIA PO PRN (18:14)
[2024-09-13] MEDS ORDERED: GLUCAGON FOR INJ 1 MG VIAL SQ PRN (18:14)
[2024-09-13] MEDS: metroNIDAZOLE 500 MG/100 ML BAG IV SCH (18:38)
--- NOTE | 2024-09-13 19:01 | Communication Note ---
Date of Service: September 13, 2024 I was asked to come to the bedside as family made a decision regarding her Code status. Family unanimously decided that she would not benefit from chest compression and re-intubation. If her condition were to decompensate; they would like her to be made comfortable. They would like to continue current management for the time being without further escalation and reassess her clinical condition in the morning.
[2024-09-13] MEDS ORDERED: VANCOMYCIN HCL 1,250 MG in SODIUM CHLORIDE 0.9% 250 ML IV SCH (21:00)
[2024-09-13] MEDS: DOXYCYCLINE HYCLATE 100 MG in DEXTROSE 5% MINI-B 100 ML IV SCH (22:14)
[2024-09-13] MEDS: carBAMazepine 100 MG CHEW TAB PO SCH (22:14)
[2024-09-14 05:26] LABS: Albumin Globulin Ratio 1.5 (0.9-2); Albumin Level 2.9 gm/dl (3.4-5.0); BUN Creatinine Ratio 10.9 (10-20); Bilirubin,Total 1.2 mg/dl (0.2-1.0); Calcium 8.8 mg/dl (8.6-10.3); Creatinine Clr Calc Pharmacy 14.4 ml/min; Globulin 1.9 gm/dl (2.5-4.0); Potassium 3.5 mmol/L (3.5-5.1); Total Protein 4.8 gm/dl (6.0-8.3)
[2024-09-14 05:46] VITALS: RESP 22
[2024-09-14 09:00] LABS: Hep B Surface Ag with confirm Negative (Negative)
[2024-09-14 09:05] LABS: Hep C Ab Rflx HepCQuant RNA Negative (Negative)
[2024-09-14] MEDS ORDERED: fentaNYL citrate PF 100 MCG/2 ML VIAL IV PRN (09:13)
--- NOTE | 2024-09-14 09:17 | Critical Care Progress Note ---
Date of Service September 14, 2024 Assessment & Plan (1) Acute metabolic encephalopathy: (2) Severe sepsis: (3) MSSA bacteremia: (4) Severe thrombocytopenia: (5) Septic embolism: (6) Lactic acidosis: (7) Transaminasemia: (8) Elevated troponin I measurement: Plan Complex 38-year-old female with a history of end-stage renal disease status post failed renal transplant who presented to the hospital for lethargy and was found to have sepsis secondary to MSSA bacteremia. CT chest was also suspicious for septic emboli. She ultimately presented to the ICU 09/13/2024 due to acute encephalopathy and hypoxemia. She was intubated 09/13/2024. Neurologic: Acute encephalopathy: Multifactorial: Metabolic and vascular in origin: MRI concerning for acute septic emboli. - Ammonia within normal limits. - Hold bupropion given the concern for possible decreasing of the seizure threshold -Discontinue fentanyl infusion transition to intermittent bolus: End-stage renal disease No documented history of seizure disorder -Carbamazepine use: Reviewed 09/06/2024 psychiatric consultation: Plan to check carbamazepine levels: Within normal limits -Psychiatric note indicates patient reported history of bipolar however denies symptoms: Presuming carbamazepine was secondary to bipolar disorder will discontinue as this could also induce thrombocytopenia History polysubstance use: Marijuana use noted on August psychiatric consultation -Urine drug screen ordered; however, patient does not void will obtain straight cath specimen Pulmonary: - probable septic emboli from MSSA bacteremia. Continue lung protective ventilation strategy. Cardiovascular: Elevated troponin: Likely due to type II ischemia and end-stage renal disease History hypertension Gastrointestinal: N.p.o. Protonix 40 daily given severe thrombocytopenia and anemia Transaminitis of unclear etiology: Downtrending Last BM: Overnight: Black History of bleeding external hemorrhoids Renal: End-stage renal disease on hemodialysis every Saturday, and Saturday. -Nephrology following -History of failed transplant and failed left upper extremity fistula per report -Unclear if fistula is graft versus [place] vasculature -Concern for MSSA bacteremia -Discussed with nephrology, no dialysis today Infectious disease: Severe sepsis/MSSA bacteremia - Antibiotics to include vancomycin and aztreonam and doxycycline Zosyn: 3 days then discontinue Vancomycin: Day 5 : Indication: Staph aureus infection Flagyl: Day 2: indication anaerobic with possible ischemic gut Aztreonam: Day 2: Indication: Gram-negative with possible ischemic gut Doxycycline: Day 5: Indication possible atypical pneumonia -2 sets/separate day blood cultures pending no growth to date -Tickborne illnesses pending Infectious disease consult pending Vascular: -Left venous duplex: Left brachiocephalic fistula seen as patent -Possible left brachiocephalic stent -Possible partial occlusion cephalic vein thrombus -Small complex fluid collection near the brachiocephalic fistula: Question hematoma versus early abscess -Right-sided fistula current being utilized for hemodialysis -Bilateral lower extremity venous duplex negative for thrombus Hematologic: Hematology consultation reviewed. IP 4 antibody pending. Possible sepsis coagulopathy. No evidence of DIC. [id number] is pending. Anemia: Multifactorial including anemia of chronic disease: No indication for blood transfusion at this time Significant thrombocytopenia: -Elevated INR not on Coumadin's, elevated D-dimer, peripheral smear reviewed, fibrinogen normal: No strong evidence for DIC at this time: Received 10 mg IV vitamin K yesterday -No active bleeding, received total 3 unit pooled platelets: Per hematology's recommendation transfuse platelets if less than 10,000 DVT prophylaxis: SCDs Endocrine: Maintain euglycemia. TSH unremarkable. VTE prophylaxis: SCDs CODE STATUS: DNR in event of cardiac arrest Family at bedside: Disposition: ICU Update after family meeting: Meeting included patient's mother, aunts. Although airway are in agreement with DNR/DNI in event of cardiac arrest. Updated prognosis and diagnostic limitations. All generally feel the patient would not want to undergo current life-sustaining medical treatments. Confirmed patient does not have a spouse, there is 1 adult child who does not want to be sole decision-maker, patient's mother has been decision-maker as she does not have a [facility] power of attorney law clerk. Patient has longstanding history of fierce independence, has not wanted to participate in regular full dialysis treatments, she has history of a failed kidney transplant from a family donor. All feel that she has made her wishes through her actions rather clear. Initial feelings feel that the patient would not want additional life-sustaining treatments with this time we will not escalate care. There is a consult to palliative care to assist with further discussions as the patient has a minor child. We briefly discussed what end-of-life may look like if he were to discontinue dialysis and invasive mechanical ventilation. We also discussed continuing with treatment which included possibility of tracheostomy. At this time family indicates patient by pinky did not want her level of medical intervention required for daily living, these chronic medical conditions will still persist and additionally now has infectious and neurologic conditions which will further degrade her quality of life which the patient was already significantly distressed over. Additional family discussions to be forthcoming. Admission and Anticipated Discharge Date Admission Date: September 10, 2024 Supervising Physician Co-Signing Physician Notes I have personally spent 115 minutes of critical care time in the direct management of this patient. This is a life/limb threatening event. This includes time spent evaluating patient, direct bedside care, chart review, placing orders, interpretation of diagnostic studies, discussion with consultants, patient, and family members, as well as other required patient management activities. This time is exclusive of all separately billable procedures, and teaching time and separate from and in addition to any other critical care service time. Subjective No overnight events. Discussed with bedside nurse and hospitalist medicine team Physical Exam Physical Exam: General: Sedated. nontoxic. Skin: Warm, dry, Head: Atraumatic Ears, nose, mouth and throat: airway obscured by endotracheal tube Cardiovascular: Normal peripheral perfusion Respiratory: Ventilator settings reviewed Gastrointestinal: Non distended Musculoskeletal: No deformity Results & Data Results & Data Vital Signs (Past 12 Hours) Vital Signs Temp Pulse Resp BP Pulse Ox FiO2 09/14/24 07:12 58 L 22 100 35 09/14/24 05:30 123/72 09/14/24 05:27 57 L 22 98 09/14/24 05:15 127/73 09/14/24 05:03 57 L 22 100 09/14/24 04:45 128/75 09/14/24 04:45 128/75 09/14/24 04:45 128/75 09/14/24 04:45 128/75 09/14/24 04:45 57 L 19 100 09/14/24 04:30 57 L 19 100 09/14/24 04:30 146/83 H 09/14/24 04:00 149/82 H 09/14/24 04:00 149/82 H 09/14/24 04:00 149/82 H 09/14/24 04:00 57 L 19 100 09/14/24 04:00 40 09/14/24 03:50 56 L 22 100 35 09/14/24 03:45 163/83 H 09/14/24 03:42 56 L 19 100 09/14/24 03:30 135/77 09/14/24 03:30 135/77 09/14/24 03:27 57 L 22 100 09/14/24 03:15 136/77 09/14/24 03:12 57 L 22 100 09/14/24 03:09 56 L 22 100 09/14/24 03:00 136/76 09/14/24 02:57 57 L 22 100 09/14/24 02:45 135/75 09/14/24 02:45 57 L 22 100 09/14/24 02:15 138/74 09/14/24 02:15 138/74 09/14/24 02:15 138/74 09/14/24 02:03 57 L 22 100 09/14/24 02:00 143/74 H 09/14/24 02:00 143/74 H 09/14/24 02:00 143/74 H 09/14/24 01:54 57 L 22 100 09/14/24 01:30 135/76 09/14/24 01:24 57 L 22 100 09/14/24 01:15 135/74 09/14/24 01:15 135/74 09/14/24 01:15 135/74 09/14/24 01:15 135/74 09/14/24 01:15 58 L 22 100 09/14/24 01:00 138/76 09/14/24 01:00 138/76 09/14/24 01:00 138/76 09/14/24 01:00 138/76 09/14/24 01:00 138/76 09/14/24 01:00 138/76 09/14/24 01:00 138/76 09/14/24 01:00 59 L 22 100 09/14/24 00:30 138/79 09/14/24 00:30 138/79 09/14/24 00:30 138/79 09/14/24 00:27 59 L 22 100 09/14/24 00:18 59 L 22 100 09/14/24 00:15 136/75 09/14/24 00:15 136/75 09/14/24 00:15 136/75 09/14/24 00:00 37 C 147/76 H 09/14/24 00:00 147/76 H 09/14/24 00:00 40 09/13/24 23:57 59 L 22 100 09/13/24 23:47 60 23 100 35 09/13/24 23:15 133/75 09/13/24 23:15 133/75 09/13/24 23:03 60 22 100 09/13/24 23:00 129/74 09/13/24 23:00 129/74 09/13/24 23:00 129/74 09/13/24 22:45 132/73 09/13/24 22:45 132/73 09/13/24 22:33 61 22 100 09/13/24 22:30 131/72 09/13/24 22:30 61 22 100 09/13/24 22:15 61 22 100 09/13/24 22:15 134/73 09/13/24 22:15 134/73 09/13/24 22:15 134/73 09/13/24 22:15 134/73 09/13/24 22:15 134/73 09/13/24 22:03 61 22 100 09/13/24 22:00 37 C 135/72 09/13/24 22:00 135/72 09/13/24 21:51 62 22 100 09/13/24 21:45 131/72 09/13/24 21:36 62 22 100 09/13/24 21:30 133/71 09/13/24 21:30 133/71 09/13/24 21:30 133/71 09/13/24 21:30 63 22 100 09/13/24 21:15 135/75 09/13/24 21:15 135/75 09/13/24 21:15 63 22 100 Critical Care Results & Data Vital Signs (Past 12 Hours) Vital Signs Temp Pulse Resp BP Pulse Ox FiO2 09/14/24 07:12 58 L 22 100 35 09/14/24 05:30 123/72 09/14/24 05:27 57 L 22 98 09/14/24 05:15 127/73 09/14/24 05:03 57 L 22 100 09/14/24 04:45 128/75 09/14/24 04:45 128/75 09/14/24 04:45 128/75 09/14/24 04:45 128/75 09/14/24 04:45 57 L 19 100 09/14/24 04:30 57 L 19 100 01/20/25 04:30 146/83 H 09/14/24 04:00 149/82 H 09/14/24 04:00 149/82 H 09/14/24 04:00 149/82 H 09/14/24 04:00 57 L 19 100 09/14/24 04:00 40 09/14/24 03:50 56 L 22 100 35 09/14/24 03:45 163/83 H 09/14/24 03:42 56 L 19 100 09/14/24 03:30 135/77 09/14/24 03:30 135/77 09/14/24 03:27 57 L 22 100 09/14/24 03:15 136/77 09/14/24 03:12 57 L 22 100 09/14/24 03:09 56 L 22 100 09/14/24 03:00 136/76 09/14/24 02:57 57 L 22 100 09/14/24 02:45 135/75 09/14/24 02:45 57 L 22 100 09/14/24 02:15 138/74 09/14/24 02:15 138/74 09/14/24 02:15 138/74 09/14/24 02:03 57 L 22 100 09/14/24 02:00 143/74 H 09/14/24 02:00 143/74 H 09/14/24 02:00 143/74 H 09/14/24 01:54 57 L 22 100 09/14/24 01:30 135/76 09/14/24 01:24 57 L 22 100 09/14/24 01:15 135/74 09/14/24 01:15 135/74 09/14/24 01:15 135/74 09/14/24 01:15 135/74 09/14/24 01:15 58 L 22 100 09/14/24 01:00 138/76 09/14/24 01:00 138/76 09/14/24 01:00 138/76 09/14/24 01:00 138/76 09/14/24 01:00 138/76 09/14/24 01:00 138/76 09/14/24 01:00 138/76 09/14/24 01:00 59 L 22 100 09/14/24 00:30 138/79 09/14/24 00:30 138/79 09/14/24 00:30 138/79 09/14/24 00:27 59 L 22 100 09/14/24 00:18 59 L 22 100 09/14/24 00:15 136/75 09/14/24 00:15 136/75 09/14/24 00:15 136/75 09/14/24 00:00 37 C 147/76 H 09/14/24 00:00 147/76 H 09/14/24 00:00 40 09/13/24 23:57 59 L 22 100 09/13/24 23:47 60 23 100 35 09/13/24 23:15 133/75 09/13/24 23:15 133/75 09/13/24 23:03 60 22 100 09/13/24 23:00 129/74 09/13/24 23:00 129/74 09/13/24 23:00 129/74 09/13/24 22:45 132/73 09/13/24 22:45 132/73 09/13/24 22:33 61 22 100 09/13/24 22:30 131/72 09/13/24 22:30 61 22 100 09/13/24 22:15 61 22 100 09/13/24 22:15 134/73 09/13/24 22:15 134/73 09/13/24 22:15 134/73 09/13/24 22:15 134/73 09/13/24 22:15 134/73 09/13/24 22:03 61 22 100 09/13/24 22:00 37 C 135/72 09/13/24 22:00 135/72 09/13/24 21:51 62 22 100 09/13/24 21:45 131/72 09/13/24 21:36 62 22 100 09/13/24 21:30 133/71 09/13/24 21:30 133/71 09/13/24 21:30 133/71 09/13/24 21:30 63 22 100 09/13/24 21:15 135/75 09/13/24 21:15 135/75 09/13/24 21:15 63 22 100 Lab & Micro Results (Past 24 Hours) RBC 2.64 M/uL (4.20-5.40) L 09/13/24 WBC 11.13 K/ul (4.8-10.8) H 09/13/24 Hgb 8.3 g/dl (12.0-16.0) L 09/13/24 Hct 25.4 % (37.0-47.0) L 09/13/24 MCV 96.2 fL (80.0-100.0) 09/13/24 MCH 31.4 pg (25.0-34.0) 09/13/24 MCHC 32.7 g/dL (32.0-36.0) 09/13/24 RDW Standard Deviation 62.2 fL (36.4-46.3) H 09/13/24 RDW Coefficient of Variation 17.5 % (11.5-14.5) H 09/13/24 Plt Count 22 K/uL (130-400) L* 09/13/24 Neutrophils (%) (Auto) 83.0 % 09/13/24 Lymphocytes (%) (Auto) 6.5 % 09/13/24 Monocytes # (Auto) 1.05 K/uL (0.11-0.59) H 09/13/24 Eosinophils # (Auto) 0.02 K/uL (0.00-0.50) 09/13/24 Immature Granulocyte % (Auto) 0.8 % 09/13/24 Neutrophils # (Auto) 9.24 K/uL (1.40-6.50) H 09/13/24 Lymphocytes # (Auto) 0.72 K/uL (1.20-3.40) L 09/13/24 Monocytes # (Auto) 1.05 K/uL (0.11-0.59) H 09/13/24 Eosinophils # (Auto) 0.02 K/uL (0.00-0.50) 09/13/24 Basophils # (Auto) 0.01 K/uL (0.00-0.20) 09/13/24 Immature Granulocyte # (Auto) 0.09 K/uL (0.01-0.20) 5 Na 134 mmol/L (136-145) L 09/14/24 K 3.5 mmol/L (3.5-5.1) 09/14/24 Cl 95 mmol/L (98-107) L 09/14/24 CO2 25 mmol/L (21-32) 09/14/24 Anion Gap 14 (3-11) H 09/14/24 BUN 62 mg/dl (6-23) H 09/14/24 Creatinine 5.71 mg/dl (0.6-1.2) H* 09/14/24 BUN/Creatinine Ratio 10.9 (10-20) 09/14/24 Glu 127 mg/dl (70-99(Fasting)) H 09/14/24 Ca 8.8 mg/dl (8.6-10.3) 09/14/24 Total Bilirubin 1.2 mg/dl (0.2-1.0) H 09/14/24 Direct Bilirubin 0.8 mg/dl (0-0.2) H 09/13/24 AST 96 U/L (13-39) H 09/14/24 ALT 67 U/L (7-52) H 09/14/24 Alkaline Phosphatase 72 U/L (34-104) 09/14/24 TP 4.8 gm/dl (6.0-8.3) L 09/14/24 Albumin 2.9 gm/dl (3.4-5.0) L 09/14/24 Globulin 1.9 gm/dl (2.5-4.0) L 09/14/24 Albumin/Globulin Ratio 1.5 (0.9-2) 09/14/24 Mg 2.3 mg/dl (1.7-2.4) 09/13/24 15:11 Calcium Level 8.8 mg/dl (8.6-10.3) 09/14/24 04:30 Prothromb Time International Ratio 1.1 (0.9-1.1) 09/14/24 12:5 9 Sudhir Test Pass 09/13/24 14:44 Microbiology 09/13/24 05:53 Aerobic Blood Culture - Preliminary Blood No growth in Aerobic bottle after 24 hours. Anaerobic Blood Culture - Preliminary No growth in Anaerobic bottle after 24 hours. 09/13/24 05:54 Aerobic Blood Culture - Preliminary Blood No growth in Aerobic bottle after 24 hours. Anaerobic Blood Culture - Preliminary No growth in Anaerobic bottle after 24 hours. 09/10/24 20:13 Aerobic Blood Culture - Final Blood Staphylococcus aureus Anaerobic Blood Culture - Final Staphylococcus aureus 09/10/24 20:08 Aerobic Blood Culture - Preliminary Blood Staphylococcus aureus Anaerobic Blood Culture - Final Diagnostic Findings (Past 24 Hours) Brain MRI 09/13/24 12:28 MRI of the brain performed without IV contrast History: Ventilated. Evaluate for stroke Comparison: None Technique: Sagittal T1-weighted and axial T2-weighted, T2/FLAIR and diffusion-weighted with ADC map images of the brain were obtained without IV contrast. Findings: No evidence for intracranial mass lesion, mass-effect, midline shift, or abnormal extra-axial fluid collection. The ventricles and sulci are within normal limits for age. Scattered small foci of restricted diffusion suggesting acute infarct. There is a rounded 8 mm region in the left anterior thalamic nucleus. Few tiny foci along the left body and head of the caudate nucleus. Punctate focus in the right posterior limb internal capsule. There are a few scattered punctate foci in the posterior temporal lobes and occipital lobes bilaterally. A small region of acute infarct is seen at the cortex of the medial right occipital lobe measuring 1.8 cm in transverse diameter. There are numerous scattered tiny infarcts throughout the cerebellar hemispheres, as well as an infarct in the left cerebellar hemisphere measuring 14 mm. Normal intravascular flow voids. Bilateral mastoid air cell effusions. Impression: Numerous foci of acute infarct, primarily throughout the posterior cerebral hemispheres and throughout the cerebellum. There is an infarct of the left thalamus and left caudate nucleus as well. Electronically signed by Daljit Alfonso 09-13-2024 5:37 PM Chest X-Ray 09/13/24 14:48 EXAM: Radiograph of the Chest 1 View INDICATION: Intubation. TECHNIQUE: Frontal view of the chest. COMPARISON: 09/10/2024 FINDINGS: Lungs and pleural spaces: There is increased consolidation in the left lower lung. No pleural effusion or pneumothorax. Heart: Stable large cardiac shadow. Mediastinum: Normal contour. Bones/joints: No fracture, erosion or dislocation. Soft tissues: Brachiocephalic and right axillary stents unchanged. Tubes, lines and devices: The endotracheal tube terminates 1.6 cm above the rk. Upper abdomen: No abnormality noted. IMPRESSION: 1. There is increased consolidation in the left lower lung. Pneumonia and atelectasis related to mucous plugging considered. 2. Lines and tubes as above. ACT 112: Negative or not required by law. Electronically signed by Ksenia Mejia 09-13-2024 3:48 PM Abdomen/Pelvis CTA 09/13/24 15:48 EXAMINATION: CT angiogram of the abdomen and pelvis performed after the administration of IV contrast TECHNIQUE: Helical CT images from the lung bases through the symphysis pubis were obtained with contrast. Coronal and sagittal reformatted images were generated at a workstation for further assessment. Dose reduction techniques were achieved by using automatic exposure control and/or adjustment of mA and/or kV according to patient size and/or use of iterative reconstruction technique. COMPARISON: 08/10/2024 HISTORY: Abdominal pain FINDINGS: Lower chest: Trace pleural effusions. The heart is enlarged. There is reflux of contrast into the IVC. Liver: No suspicious liver lesions. Portal veins appear patent. Gallbladder: Cholecystectomy. Spleen: Normal size. Pancreas: No suspicious pancreatic lesions. The pancreatic duct is not dilated. Adrenal glands: No adrenal nodules. Kidneys: No hydronephrosis or obstructing renal stones. A calcified mass in the right lower quadrant, may represent an old renal transplant or possibly an old area of hematoma or ischemia. Severely atrophic [place] kidneys. There are a few scattered renal cysts. Bladder / Pelvic organs: Unremarkable. Bowel: No bowel obstruction. A few loops of small bowel jejunum in the left upper abdomen demonstrate mild wall thickening. The appendix is unremarkable. Lymph nodes: No retroperitoneal, mesenteric, or pelvic lymphadenopathy. Peritoneum / Retroperitoneum: No free fluid or air within the abdomen. Vessels: No infrarenal aortic aneurysm. Moderate aortoiliac calcification. Grossly patent celiac artery, SMA, and SORAIDA. The [place] renal arteries are not well-opacified, likely due to chronic renal failure. Bones and soft tissues: No suspicious lesion in the bones. Part 2 visualized arteriovenous fistula in the right arm. There are numerous venous collaterals over the anterior chest wall, with increased enhancement anteriorly at the left lobe of the liver compatible with a heart quadrate lobe. Healing fracture deformity of the left inferior and superior pubic rami. IMPRESSION: A few loops of small bowel jejunum in the left upper quadrant demonstrate mild wall thickening, which may be seen with mild ischemia. 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 Electronically signed by Daljit Alfonso 09-13-2024 5:06 PM KUB X-Ray 09/13/24 17:49 Abdominal radiograph, one view History: Abdominal pain Comparison: Same-day CT Findings: Single AP view of the abdomen performed. The bowel gas pattern appears nonobstructive. NG/OG tube sidehole projects over the stomach. There is moderate gaseous distention of the transverse colon. Cholecystectomy clips. No pneumatosis or portal venous gas. No abnormal calcifications project over the abdomen. No acute abnormality of the bony structures. Impression: Nonobstructive bowel gas pattern. NG/OG tube sidehole projects over the stomach. Electronically signed by Daljit Alfonso 09-13-2024 6:06 PM I & O Totals 24 Hours 09/13/24 09/14/24 09/15/24 06:59 06:59 06:59 Intake Total 833.667 / 079.444 0005.595 / 1022.595 Output Total Balance 832.667 / 974.573 1568.595 / 1021.595 Cumulative 09/10/24 13:57 thru 09/14/24 06:52 Intake Total 3068.262 Output Total 2 Balance 3066.262 RT Ventilator Mngmt (Last Documented) Ventilator Ordered Settings Ventilator Support Mode Assist Control 09/14/24 07:12 Respiratory Rate 22 09/14/24 07:12 Ventilator Tidal Volume 360 09/14/24 07:12 Setting Minute Ventilation 7 09/14/24 07:12 Positive End Expiratory 5 09/14/24 07:12 Pressure Fraction of Inspired Oxygen 35 09/14/24 07:12 Machine Comment Settings per verbal order from 09/13/24 15:00 . Ziggy at bedside. Ventilator - PT Measurements Respiratory Rate 22 Exhaled Tidal Volume 360 Minute Ventilation 7 Peak Inspiratory Airway 20 Pressure Plateau Pressure 19 Respiratory Cycle Inspiratory: 1: Expiratory Ratio Inspiratory Phase Time 0.90 End-Tidal CO2 25 Static Lung Compliance 25.71 Dynamic Lung Compliance 24.00 Normal Static Lung Compliance 46.00 Patient Measurements Comment fiO2 decreased to 35% Coding Level of Care Code 97932 CRITICAL CARE 1ST 30-74M Additional Critical Care Time Additional 30min Critical Care Time: Yes - x 2 (60 addl min) Diagnoses Acute metabolic encephalopathy G93.41 Severe sepsis A41.9; R65.20 MSSA bacteremia R78.81; B95.61 Severe thrombocytopenia D69.6 Septic embolism I76 Lactic acidosis E87.20 Transaminasemia R74.01 Elevated troponin I measurement R79.89 Additional Codes Critical Care Time - Additional 30min Critical Care Time: Yes - x 2 (60 addl min) ([id number])
--- NOTE | 2024-09-14 09:45 | Nephrology Progress Note ---
Date of Service September 14, 2024 Assessment & Plan Admission and Anticipated Discharge Date Admission Date: September 10, 2024 Subjective Assessment & Plan (1) ESRD on dialysis: Plan: missed treatment on 09/09 > volume overload contributes to hypoxia and to worsening hyperkalemia and hyponatremia Short Tx yesterday as she was very anxious. Given big decline in mental status from possibly Multiple Acute Stroke there is some danger in making ischemia worse with dialysis and potential Drop in BP during Dialysis. No electrolyte issues. She has some e/o vol overload but vital signs are fine. So will skip dialysis today and depending on situation today will plan on doing tomorrow Palliative med Discussion also underway. I discussed with mother at bedside and also ICU Dr Lloyd. (2) Atrial fibrillation: Plan: believe this is new for her > per primary service; low threshold for cardiology eval in setting of bacteremia, thrombocytopenia (3) Sepsis due to Staphylococcus aureus: Plan: f/u pending blood cultures continue on Vancomycin and Zoysn (4) Chronic systolic CHF (congestive heart failure): Plan: EF 45%. (5) Severe thrombocytopenia: Plan: plts 29K on admission; extensive w/u underway; new; ? 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 Big decline in her mental status and is now intubated and sedated on Vent. Vitals signs are fine Review of Systems Review of Systems: All systems reviewed & are unremarkable except as noted in HPI & below Physical Exam Physical Exam: Constitutional: Intubated on vent and sedated.. Respiratory: Bilateral decreased breath sound at bases Cardiovascular: RRR, no murmur, no edema Vessels: no JVD or carotid bruit Chest: normal inspection of chest Abdomen: normal bowel sounds, soft, nontender, no hepatosplenomegaly Musculoskeletal: Fistula present in bilateral arm; bruit present on right fistula. Skin: no rashes, warm and dry normal turgor Neurologic: Grossly moves all extremities. Results & Data Vital Signs (Past 12 Hours) Vital Signs Temp Pulse Resp BP Pulse Ox FiO2 09/14/24 07:12 58 L 22 100 35 09/14/24 05:30 123/72 09/14/24 05:27 57 L 22 98 09/14/24 05:15 127/73 09/14/24 05:03 57 L 22 100 09/14/24 04:45 128/75 09/14/24 04:45 128/75 09/14/24 04:45 128/75 09/14/24 04:45 128/75 09/14/24 04:45 57 L 19 100 09/14/24 04:30 57 L 19 100 09/14/24 04:30 146/83 H 09/14/24 04:00 149/82 H 09/14/24 04:00 149/82 H 09/14/24 04:00 149/82 H 09/14/24 04:00 57 L 19 100 09/14/24 04:00 40 09/14/24 03:50 56 L 22 100 35 09/14/24 03:45 163/83 H 09/14/24 03:42 56 L 19 100 09/14/24 03:30 135/77 09/14/24 03:30 135/77 09/14/24 03:27 57 L 22 100 09/14/24 03:15 136/77 09/14/24 03:12 57 L 22 100 09/14/24 03:09 56 L 22 100 09/14/24 03:00 136/76 09/14/24 02:57 57 L 22 100 09/14/24 02:45 135/75 09/14/24 02:45 57 L 22 100 09/14/24 02:15 138/74 09/14/24 02:15 138/74 09/14/24 02:15 138/74 09/14/24 02:03 57 L 22 100 09/14/24 02:00 143/74 H 09/14/24 02:00 143/74 H 09/14/24 02:00 143/74 H 09/14/24 01:54 57 L 22 100 09/14/24 01:30 135/76 09/14/24 01:24 57 L 22 100 09/14/24 01:15 135/74 09/14/24 01:15 135/74 09/14/24 01:15 135/74 09/14/24 01:15 135/74 09/14/24 01:15 58 L 22 100 09/14/24 01:00 138/76 09/14/24 01:00 138/76 01/20/25 01:00 138/76 09/14/24 01:00 138/76 09/14/24 01:00 138/76 09/14/24 01:00 138/76 09/14/24 01:00 138/76 09/14/24 01:00 59 L 22 100 09/14/24 00:30 138/79 09/14/24 00:30 138/79 09/14/24 00:30 138/79 09/14/24 00:27 59 L 22 100 09/14/24 00:18 59 L 22 100 09/14/24 00:15 136/75 09/14/24 00:15 136/75 09/14/24 00:15 136/75 09/14/24 00:00 37 C 147/76 H 09/14/24 00:00 147/76 H 09/14/24 00:00 40 09/13/24 23:57 59 L 22 100 09/13/24 23:47 60 23 100 35 09/13/24 23:15 133/75 09/13/24 23:15 133/75 09/13/24 23:03 60 22 100 09/13/24 23:00 129/74 09/13/24 23:00 129/74 09/13/24 23:00 129/74 09/13/24 22:45 132/73 09/13/24 22:45 132/73 09/13/24 22:33 61 22 100 09/13/24 22:30 131/72 09/13/24 22:30 61 22 100 09/13/24 22:15 61 22 100 09/13/24 22:15 134/73 09/13/24 22:15 134/73 09/13/24 22:15 134/73 09/13/24 22:15 134/73 09/13/24 22:15 134/73 09/13/24 22:03 61 22 100 09/13/24 22:00 37 C 135/72 09/13/24 22:00 135/72 09/13/24 21:51 62 22 100 09/13/24 21:45 131/72
--- NOTE | 2024-09-14 10:21 | XRay Report ---
PORTABLE AP CHEST RADIOGRAPH CLINICAL HISTORY: lines COMPARISON STUDY: Chest CT September 11, 2024. Chest radiograph September 13, 2024. FINDINGS: Tip of endotracheal tube is 3.4 cm above the rk. Cardiomegaly. Pulmonary vascular conge stion is unchanged. Tip of nasogastric tube is below the lower aspect of this image but at least with in the body of the stomach. There is no pneumothorax or pleural effusion. Left brachiocephalic vein s tent is in place. Patchy right midlung opacity has progressed. There is also left basilar opacity. IMPRESSION: 1. Satisfactory positioning of the endotracheal and nasogastric tubes. 2. Cardiomegaly with pulmonary vascular congestion, unchanged. 3. Increase in bilateral airspace opacities. The findings favor an infectious process. ACT 112: Negative or not required by law. Electronically signed by: Sebastian Mcclain M.D. 09/14/2024 10:19 AM
--- NOTE | 2024-09-14 11:26 | Electrocardiogram Report ---
Test Reason : Blood Pressure : */* mmHG Vent. Rate : 76 BPM Atrial Rate : 76 BPM P-R Int : 162 ms QRS Dur : 120 ms QT Int : 442 ms P-R-T Axes : 35 -30 56 degrees QTcB Int : 497 ms Normal sinus rhythm Left axis deviation Minimal voltage criteria for LVH, may be normal variant Poor R wave progression, consider anterior NJ vs. lead placement vs. LVH Possible Lateral infarct (cited on or before 21-Mar-2018) When compared with ECG of 11-Sep-2024 10:46, Sinus rhythm has replaced Atrial fibrillation Vent. rate has decreased by 48 bpm Non-specific change in ST segment in Inferior leads Nonspecific T wave abnormality no longer evident in Inferior leads Nonspecific T wave abnormality now evident in Anterior leads Confirmed by Daljit Thompson ([id number]) on 09/14/2024 11:26:40 AM Referred By: REFERRED SELF Confirmed By: Daljit Thompson
--- NOTE | 2024-09-14 11:42 | Pharmacy Report ---
Pharmacy PK ABX Note - Date of Service September 14, 2024 - Assessment and Plan Assessment 09/14: Random level 20.7 mcg/mL- Patient will not undergo dialysis today as originally planned. Patient currently on vancomycin/aztreonam/flagyl/doxycycline with ID consult pending. Blood Cultures from 09/13 AM are currently negative, Blood cultures from 09/13 afternoon, 09/14 AM pending 09/13 Vancomycin initially discontinued this morning, restarted after code purple called. Patient now intubated and transferred to ICU. Zosyn has been changed to aztreonam. Random vancomycin level 23.7 mcg/mL today- no dialysis planned. Will obtain random level for 09/14 AM to assist with post dialysis dose if performed as planned tomorrow. 09/12 Blood cultures 3/4 MSSA. Continues on vancomycin/zosyn. ID consult pending. Redosed with 500 mg x 1 09/11 PM. Random level this AM 20.8 mcg/mL, will redose with 750 mg x 1 after planned dialysis today to ensure patient remains therapeutic. Repeat random level 09/13 09/11 38 year old F receiving vancomycin/Zosyn for treatment of bacteremia/pneumonia. Patient has a history of ESRD on HD MWF typically. Dialysis today while receiving initial loading dose. Due to severity of infection will obtain a post- HD level today for close monitoring and potential re-dosing. Pertinent microbiologic data includes: MRSA Nasal Swab pending, blood culture growing GPCs (3/4) BiofireID S. Aureus no Mec A/C resistence noted, possible infective multifocal patchy variable sized nodular infiltrate/consolidations in both lungs on CTA. Plan Vancomycin * Random level this AM 20.7 mcg/mL without plan for dialysis * Will redose with 500 mg x1 today * Random level ordered for: 09/15/24 with AM labs Pharmacy will continue to follow and will adjust dose/frequency as necessary. Thank you. Pharmacy has transitioned to AUC monitoring for vancomycin. AUC/YING is the preferred PK/PD target and is associated with decreased risk of nephrotoxicity compared to traditional trough targets.
--- NOTE | 2024-09-14 11:54 | Hospitalist Progress Note ---
Date of Service September 14, 2024 Assessment & Plan (1) ESRD on dialysis: (2) Generalized weakness: (3) Chronic systolic CHF (congestive heart failure): (4) Hypertension, essential: (5) Chest pain: (6) Stented coronary artery: (7) Ischemic cardiomyopathy: (8) Bipolar disorder: Plan Patient is a 38-year-old female with extensive past medical history including ESRD on dialysis who presented to the ED on 09/10/2024 with complaints of trouble ambulating and weakness, found to have a critically low platelet count of 29. Sepsis POA MSSA bacteremia Toxic encephalopathy CVA Patient presented to the hospital with generalized weakness and fatigue Blood culture 3 out of 4 on admission Growing MSSA CTA chest on admission did not show evidence of PE; multifocal patchy variable sized nodular infiltrate/consolidation involving both lungs, predominantly lower lobes. Patient was admitted to medical floor; was started on Zosyn for MSSA bacteremia. Patient mentation gradually worsened; code purple was called on 09/13 for altered mental status and lethargy. Patient was taken to ICU and intubated. MRI brain shows numerous foci of acute infarct, primarily throughout the posterior cerebral hemisphere and throughout the cerebellum. Also, infarct on left thalamus and left caudate nucleus as well. CTA chest showed possible signs of mild ischemia. Patient is being treated with vancomycin, Flagyl, aztreonam and doxycycline. Discussion has been ongoing with family since patient's admission regarding patient's poor prognosis given her presentation, multiple comorbidities. Decision was made by family ( including her adult son, mom) to the Code Status to DNR/DNI. Overall, patient prognosis is guarded. Sinus tachycardia with frequent PACs Possible Atrial fibrillation. Patient had elevated heart rate of 130s on 09/11/2023 while undergoing dialysis EKG reviewed by cardiology; consistent with sinus tachycardia with PACs Severe thrombocytopenia present Echocardiogram as above Patient continues to have periods Of tachycardia overnight on 09/13; possible burst of atrial fibrillation. Patient cannot be given anticoagulation due to thrombocytopenia. Continue on metoprolol. Severe thrombocytopenia Likely secondary to sepsis Platelet count of 16,000 on admission, D-dimer elevated, fibrinogen within normal limits, Suspect thrombocytopenia secondary to sepsis Monitor CBC daily CT head without contrast obtained on 09/12no acute finding Status post 1 unit of platelet transfused on 09/12 and 09/13 Discussed with hematology on 09/12; will obtain [id number] as per recommendation. ESRD on hemodialysis with history of noncompliance Hyponatremia Hyperkalemia Patient has history of missing dialysis sessions. She missed another dialysis session a day prior to admission Hyponatremia, hyperkalemia likely secondary to ESRD Dialysis as per nephrology Transaminitis: Could be viral or medication induced, trend LFTs daily, avoid hepatotoxic medications - improved Ischemic cardiomyopathy History of CAD status post stent placement; last stent in May 2024 Recent echocardiogram shows improved EF Hx asthma: Continue home inhalers Hx depression with anxiety Hx bipolar disorder Continue lorazepam/mirtazapine/Wellbutrin Hx [id number]: Last A1c on 03/2024 5.6 DVT prophylaxis SCDs in setting of severe thrombocytopenia DNR/DNI Time spent evaluating patient, direct bedside care, chart review, placing orders, interpretation of diagnostic studies, discussion with consultants, patient, and family members, as well as other required patient management activities is 50 minutes Please note the above document was generated using voice recognition software. It may contain grammatical, syntax or spelling errors. Any formal questions or concerns about the content, text or information contained within the body of this dictation should be directly addressed to the provider for clarification Admission and Anticipated Discharge Date Admission Date: September 10, 2024 Subjective Patient seen and examined at bedside. She is mechanically ventilated and sedated. Hemodynamics are stable No significant events overnight Review of Systems Review of Systems: Unobtainable due to reduced consciousness Physical Exam Physical Exam: Constitutional: Sedated and mechanically ventilated. Respiratory: Bilateral mechanical breath sound Cardiovascular: RRR, no murmur, no edema Vessels: no JVD or carotid bruit Chest: normal inspection of chest Abdomen: Soft, nondistended. Neurologic: Sedated. Results & Data Results & Data Vital Signs (Past 12 Hours) Vital Signs Temp Pulse Resp BP Pulse Ox O2 Del Method FiO2 09/14/24 11:36 37.1 C 67 22 100 09/14/24 11:12 37.1 C 67 22 100 09/14/24 11:00 150/90 H 09/14/24 11:00 37.1 C 67 22 100 09/14/24 10:56 68 22 100 35 09/14/24 10:00 36.9 C 65 22 100 09/14/24 10:00 158/86 H 09/14/24 08:30 147/84 H 09/14/24 08:18 36.6 C 61 22 100 09/14/24 08:15 155/87 H 09/14/24 08:00 35 09/14/24 08:00 Mechanical Vent 35 09/14/24 07:57 36.6 C 59 L 22 100 09/14/24 07:45 136/80 09/14/24 07:42 36.6 C 58 L 22 100 09/14/24 07:30 134/79 09/14/24 07:27 36.6 C 59 L 22 100 09/14/24 07:15 132/77 09/14/24 07:15 132/77 09/14/24 07:15 36.6 C 58 L 22 100 09/14/24 07:12 58 L 22 100 35 09/14/24 07:00 131/75 09/14/24 05:30 123/72 09/14/24 05:27 57 L 22 98 09/14/24 05:15 127/73 09/14/24 05:03 57 L 22 100 09/14/24 04:45 128/75 09/14/24 04:45 128/75 09/14/24 04:45 128/75 09/14/24 04:45 128/75 09/14/24 04:45 57 L 19 100 09/14/24 04:30 57 L 19 100 09/14/24 04:30 146/83 H 09/14/24 04:00 149/82 H 09/14/24 04:00 149/82 H 09/14/24 04:00 149/82 H 09/14/24 04:00 57 L 19 100 09/14/24 04:00 40 09/14/24 03:50 56 L 22 100 35 09/14/24 03:45 163/83 H 09/14/24 03:42 56 L 19 100 09/14/24 03:30 135/77 09/14/24 03:30 135/77 09/14/24 03:27 57 L 22 100 09/14/24 03:15 136/77 09/14/24 03:12 57 L 22 100 09/14/24 03:09 56 L 22 100 09/14/24 03:00 136/76 09/14/24 02:57 57 L 22 100 09/14/24 02:45 135/75 09/14/24 02:45 57 L 22 100 09/14/24 02:15 138/74 09/14/24 02:15 138/74 09/14/24 02:15 138/74 09/14/24 02:03 57 L 22 100 09/14/24 02:00 143/74 H 09/14/24 02:00 143/74 H 09/14/24 02:00 143/74 H 09/14/24 01:54 57 L 22 100 09/14/24 01:30 135/76 09/14/24 01:24 57 L 22 100 09/14/24 01:15 135/74 09/14/24 01:15 135/74 09/14/24 01:15 135/74 09/14/24 01:15 135/74 09/14/24 01:15 58 L 22 100 09/14/24 01:00 138/76 09/14/24 01:00 138/76 09/14/24 01:00 138/76 09/14/24 01:00 138/76 09/14/24 01:00 138/76 09/14/24 01:00 138/76 09/14/24 01:00 138/76 09/14/24 01:00 59 L 22 100 09/14/24 00:30 138/79 09/14/24 00:30 138/79 09/14/24 00:30 138/79 09/14/24 00:27 59 L 22 100 09/14/24 00:18 59 L 22 100 09/14/24 00:15 136/75 09/14/24 00:15 136/75 09/14/24 00:15 136/75 09/14/24 00:00 37 C 147/76 H 09/14/24 00:00 147/76 H 09/14/24 00:00 40 09/13/24 23:57 59 L 22 100 09/13/24 23:47 60 23 100 35 (5) Chest pain Chest pain type: unspecified Qualified Code(s): R07.9 - Chest pain, unspecified
[2024-09-14 12:15] LABS: Toxic Vacuolation 2+
[2024-09-14] MEDS: VANCOMYCIN 500 MG in NSS 100mL IV ONE (13:01)
[2024-09-14 13:52] LABS: Fibrinogen 295 mg/dl (184-400); INR 1.1 (0.9-1.1); Partial Thromboplastin Time 27 Seconds (21-31); Prothrombin Time 11.7 Seconds (9.0-12.0)
[2024-09-14 14:54] VITALS: O2SAT 100
[2024-09-14] MEDS ORDERED: HYOSCYAMINE SULFATE 0.125 MG TAB SL PRN (16:41)
[2024-09-14] MEDS ORDERED: LORazepam 2 MG/1 ML VIAL IV PRN (16:41)
[2024-09-14] MEDS ORDERED: ONDANSETRON INJ 2 MG/ML 2 ML VIAL IV PRN (16:41)
--- NOTE | 2024-09-14 16:48 | Communication Note ---
Date of Service: September 14, 2024 Update 1600, additional discussion with patient's family: Mother, sister, adult son, youngest son, ex-, grandmother, additional family members all in agreement to proceed with hospice and compassionate extubation. Discussed with compassionate extubation looks like and patient responses they progressed through the natural dying process. Ordering comfort care order sets. Family would like to proceed today. Confirmed agreement from hospitalist medicine team. The patient shows signs of stability after 1 to [address] transfer orders to facilitate family member present at his bedside. Coding Level of Care Code None
[2024-09-14 17:05] VITALS: BP 158/71; PULSE 70; TEMP 99.3
[2024-09-14] MEDS: MoRPHine SULFATE 10 MG/0.5 ML UDP PO PRN (17:21)
[2024-09-14] MEDS ORDERED: INSULIN ASPART PER UNIT CHARGE SC SCH (18:20)
[2024-09-14] MEDS: GLYCOPYRROLATE 0.2 MG/ML VIAL IV PRN (20:01)
[2024-09-14] MEDS: HYDROmorphone INJ 0.5 MG/0.5 ML SYR IV PRN (20:01)
--- NOTE | 2024-09-14 20:17 | Communication Note ---
Date of Service: September 14, 2024 Clarified with family at bedside via nurse in regards to Antibiotics in regards to comfort/palliative care. They are in agreement they would want to stop the antibiotics and focus on her being comfortable and rest. - Antibiotics discontinued Baron LINDSAY (ACNp-)
--- NOTE | 2024-09-14 23:25 | Death Pronouncement Note ---
Date of Service September 14, 2024 Pronouncement Note Admission Date September 10, 2024 Date and Time of Date of : 09/14/24 Time of : 23:02 Additional Data Confirmation of : no pulse, no respirations, no heart sounds and pupils fixed and dilated Family: at bedside Attending physician: Daquan Morgan MD
--- NOTE | 2024-09-15 06:38 | Electroencephalogram ---
EEG Procedure Note Date of Service September 14, 2024 Home Medication List Medication Instructions Recorded Confirmed Type carbamazepine 200 mg tablet 200 mg PO AMPM 06/08/23 09/10/24 History hydroxyzine HCl 25 mg tablet 25 mg PO Q6H PRN Anxiety 06/08/23 09/10/24 History lorazepam 0.5 mg tablet 0.5 mg PO Q8H PRN Anxiety 06/08/23 09/10/24 History vitamin B complex-vitamin C-folic 1 tab PO QAM 06/08/23 09/10/24 History acid 0.8 mg tablet (Renal-Rika) benzonatate 100 mg capsule 200 mg PO TID PRN Cough 08/29/23 09/10/24 History calcium acetate(phosphat bind) 667 2,001 mg PO UD 08/29/23 09/10/24 History mg capsule medroxyprogesterone 150 mg/mL 150 mg IM .EVERY 3 MONTHS 08/29/23 09/10/24 History intramuscular suspension (Depo-Provera) lidocaine 5 % topical ointment 1 applic topical QID PRN pain #30 04/11/24 09/10/24 Rx grams bupropion HCl 150 mg 24 hr tablet, 150 mg PO QAM 04/17/24 09/10/24 History extended release mirtazapine 7.5 mg tablet 7.5 mg PO HS 04/17/24 09/10/24 History aspirin 81 mg tablet,delayed 81 mg PO QAM #30 tabs 05/09/24 09/10/24 Rx release clopidogrel 75 mg tablet 75 mg PO QAM #30 tabs 05/09/24 09/10/24 Rx amlodipine 2.5 mg tablet 2.5 mg PO QAM 07/24/24 09/10/24 History atorvastatin 40 mg tablet 40 mg PO QPM 07/24/24 09/10/24 History metoprolol succinate 50 mg 50 mg PO BID 07/24/24 09/10/24 History tablet,extended release 24 hr oxycodone-acetaminophen 5 mg-325 1 tab PO Q8H PRN pain #15 tabs 08/10/24 09/10/24 Rx mg tablet (Percocet) cyclobenzaprine 5 mg tablet 5 mg PO Q8H PRN Muscle Spasm 09/10/24 09/10/24 History varenicline tartrate 1 mg tablet 1 mg PO BID 09/10/24 09/10/24 History Inpatient Medication List Discontinued Medications Amlodipine Besylate (Amlodipine Besylate 5 Mg Tab) 2.5 mg PO QAM [facility] Stop: 10/11/24 08:59 Last Admin: 09/13/24 09:04 Dose: 2.5 mg Documented By: Admin: 09/12/24 13:46 Dose: 2.5 mg Documented By: Admin: 09/11/24 13:08 Dose: 2.5 mg Documented By: Bupropion HCl (Bupropion Xl 150 Mg Tabcr) 150 mg PO QAM [facility] Stop: 10/11/24 08:59 Last Admin: 09/13/24 09:04 Dose: 150 mg Documented By: Admin: 09/12/24 13:46 Dose: 150 mg Documented By: Admin: 09/11/24 13:10 Dose: 150 mg Documented By: Calcium Acetate (Calcium Acetate 667 Mg Cap/Tab) 2,001 mg PO TIDM [facility] Stop: 10/11/24 07:59 Last Admin: 09/14/24 14:44 Dose: Not Given Documented By: Admin: 09/14/24 10:49 Dose: Not Given Documented By: Admin: 09/14/24 08:09 Dose: Not Given Documented By: Admin: 09/13/24 17:54 Dose: Not Given Documented By: Admin: 09/13/24 13:46 Dose: Not Given Documented By: Admin: 09/13/24 09:05 Dose: 2,001 mg Documented By: Admin: 09/12/24 17:02 Dose: 2,001 mg Documented By: Admin: 09/12/24 13:50 Dose: Not Given Documented By: Admin: 09/12/24 13:45 Dose: 2,001 mg Documented By: Admin: 09/11/24 17:06 Dose: 2,001 mg Documented By: Admin: 09/11/24 13:10 Dose: Not Given Documented By: Admin: 09/11/24 13:07 Dose: 2,001 mg Documented By: Carbamazepine (Carbamazepine 200 Mg Tablet) 200 mg PO BID [facility] Stop: 10/10/24 21:09 Last Admin: 09/13/24 09:04 Dose: 200 mg Documented By: Admin: 09/12/24 20:53 Dose: 200 mg Documented By: Admin: 09/12/24 13:47 Dose: 200 mg Documented By: Admin: 09/11/24 20:41 Dose: 200 mg Documented By: Admin: 09/11/24 13:09 Dose: 200 mg Documented By: Admin: 09/10/24 21:52 Dose: 200 mg Documented By: SORAIDA Carbamazepine (Carbamazepine 100 Mg Chew Tab) 200 mg PO BID [facility] Stop: 10/13/24 21:44 Last Admin: 09/14/24 10:29 Dose: Not Given Documented By: Admin: 09/13/24 22:14 Dose: 200 mg Documented By: SHON Cyclobenzaprine HCl (Cyclobenzaprine Hcl 5 Mg Tab) 5 mg PO Q8H PRN PRN Reason: Muscle Spasm Stop: 10/10/24 21:09 Last Admin: 09/12/24 17:02 Dose: 5 mg Documented By: YOBANI Doxycycline Hyclate (Doxycycline Hyclate 100 Mg Cap) 100 mg PO BID NIKKI Stop: 09/13/24 20:59 Last Admin: 09/13/24 09:03 Dose: 100 mg Documented By: Admin: 09/12/24 20:54 Dose: 100 mg Documented By: Admin: 09/12/24 13:48 Dose: 100 mg Documented By: Admin: 09/11/24 20:41 Dose: 100 mg Documented By: Admin: 09/11/24 13:06 Dose: 100 mg Documented By: Fentanyl Citrate (Fentanyl Citrate 2,500 Mcg/250 Ml Bag) Confirm Administered Dose 2,500 mcg IV .STK-MED ONE Stop: 09/13/24 14:51 Last Admin: 09/13/24 15:41 Dose: Not Given Documented By: ANSHUL Glycopyrrolate (Glycopyrrolate 0.2 Mg/Ml Vial) 0.4 mg IV Q4H PRN PRN Reason: Rattling Secretions or Pulm Congestion Stop: 10/14/24 16:40 Last Admin: 09/14/24 20:01 Dose: 0.4 mg Documented By: TP Hydromorphone HCl (Hydromorphone Inj 0.5 Mg/0.5 Ml Syr) 0.25 mg IV NOW STA Stop: 09/10/24 21:40 Last Admin: 09/10/24 21:50 Dose: 0.25 mg Documented By: SROAIDA Hydromorphone HCl (Hydromorphone Inj 0.5 Mg/0.5 Ml Syr) 0.25 mg IV NOW STA Stop: 09/10/24 22:22 Last Admin: 09/10/24 22:31 Dose: 0.25 mg Documented By: SORAIDA Hydromorphone HCl (Hydromorphone Inj 0.5 Mg/0.5 Ml Syr) 0.5 mg IV Q4H PRN PRN Reason: Pain or Respiratory Distress Stop: 09/28/24 16:40 Last Admin: 09/14/24 20:01 Dose: 0.5 mg Documented By: SHON Doxycycline Hyclate 100 mg/ (Dextrose) 100 mls @ 50 mls/hr IV Q12H [facility] Stop: 09/16/24 06:29 Last Admin: 09/11/24 19:11 Dose: Not Given Documented By: SORAIDA Piperacillin Sod/Tazobactam Sod (Zosyn) 4.5 gm in 100 mls @ 25 mls/hr IV Q12H [facility]; Protocol Stop: 09/16/24 15:59 Last Infusion: 09/13/24 10:10 Dose: Infused Documented By: Infusion: 09/13/24 07:06 Dose: 25 mls/hr Documented By: Infusion: 09/13/24 04:30 Dose: 0 mls/hr Documented By: Admin: 09/13/24 03:17 Dose: 25 mls/hr Documented By: Infusion: 09/13/24 00:30 Dose: Infused Documented By: Infusion: 09/12/24 22:13 Dose: 25 mls/hr Documented By: Infusion: 09/12/24 21:53 Dose: 0 mls/hr Documented By: Infusion: 09/12/24 19:35 Dose: 25 mls/hr Documented By: Infusion: 09/12/24 17:15 Dose: 0 mls/hr Documented By: Admin: 09/12/24 17:01 Dose: 25 mls/hr Documented By: Infusion: 09/12/24 07:51 Dose: Infused Documented By: Admin: 09/12/24 03:16 Dose: 25 mls/hr Documented By: Infusion: 09/11/24 21:16 Dose: Infused Documented By: Admin: 09/11/24 17:09 Dose: 25 mls/hr Documented By: Piperacillin Sod/Tazobactam Sod (Zosyn) 4.5 gm in 100 mls @ 200 mls/hr IV NOW STA; Protocol Stop: 09/11/24 07:19 Last Infusion: 09/11/24 08:37 Dose: Infused Documented By: Admin: 09/11/24 08:04 Dose: 200 mls/hr Documented By: Vancomycin HCl 1,500 mg/ (Sodium Chloride) 530 mls @ 200 mls/hr IV NOW STA Stop: 09/11/24 09:31 Last Infusion: 09/11/24 13:16 Dose: Infused Documented By: Admin: 09/11/24 08:36 Dose: 200 mls/hr Documented By: Acetaminophen (Ofirmev) 1,000 mg in 100 mls @ 400 mls/hr IV NOW STA Stop: 09/11/24 08:57 Last Infusion: 09/11/24 09:22 Dose: Infused Documented By: Admin: 09/11/24 08:54 Dose: 400 mls/hr Documented By: Vancomycin HCl 500 mg/ Sodium (Chloride) 110 mls @ 200 mls/hr IV NOW ONE Stop: 09/11/24 20:32 Last Infusion: 09/11/24 22:07 Dose: Infused Documented By: Admin: 09/11/24 21:17 Dose: 200 mls/hr Documented By: SORAIDA Vancomycin HCl 750 mg/ Sodium (Chloride) 265 mls @ 200 mls/hr IV TODAY@1700 ONE Stop: 09/12/24 18:19 Last Infusion: 09/12/24 21:48 Dose: Infused Documented By: Infusion: 09/12/24 19:35 Dose: 200 mls/hr Documented By: Infusion: 09/12/24 17:15 Dose: 0 mls/hr Documented By: Admin: 09/12/24 17:02 Dose: 200 mls/hr Documented By: YOBANI Promethazine HCl (Phenergan) 6.25 mg in 50.25 mls @ 201 mls/hr IV NOW STA Stop: 09/12/24 19:59 Last Infusion: 09/12/24 22:13 Dose: Infused Documented By: Admin: 09/12/24 21:47 Dose: 201 mls/hr Documented By: AAAbhilash Fentanyl Citrate (Fentanyl Citrate) 2,500 mcg in 250 mls @ 7.5 mls/hr IV .[id number] [facility]; Protocol Stop: 09/27/24 14:59 Last Titration: 09/14/24 10:56 Dose: Infused Documented By: ES Co-signed By: NEHA Titration: 09/14/24 08:45 Dose: 0 mcg/hr, 0 mls/hr Documented By: ES Co-signed By: CB Titration: 09/14/24 06:52 Dose: 75 mcg/hr, 7.5 mls/hr Documented By: TP Co-signed By: ES Titration: 09/14/24 04:24 Dose: 75 mcg/hr, 7.5 mls/hr Documented By: TP Co-signed By: SG Titration: 09/13/24 19:01 Dose: 50 mcg/hr, 5 mls/hr Documented By: TP Co-signed By: MAGED Admin: 09/13/24 15:00 Dose: 25 mcg/hr, 2.5 mls/hr Documented By: ANSHUL Co-signed By: MAGED Propofol (Diprivan) 1,000 mg in 100 mls @ 0 mls/hr IV .Q0M [facility]; Protocol Stop: 09/16/24 14:59 Last Admin: 09/14/24 11:43 Dose: Not Given Documented By: Admin: 09/14/24 11:43 Dose: Not Given Documented By: Titration: 09/14/24 08:45 Dose: 0 mcg/kg/min, 0 mls/hr Documented By: Titration: 09/14/24 06:52 Dose: 25 mcg/kg/min, 11.8 mls/hr Documented By: TP Co-signed By: ES Admin: 09/14/24 06:29 Dose: 25 mcg/kg/min, 11.8 mls/hr Documented By: TP Co-signed By: SG Titration: 09/14/24 06:29 Dose: Infused Documented By: TP Co-signed By: SG Admin: 09/14/24 00:38 Dose: 25 mcg/kg/min, 11.8 mls/hr Documented By: SHON Co-signed By: MAUREEN Titration: 09/14/24 00:18 Dose: Infused Documented By: SHON Co-signed By: MAUREEN Titration: 09/13/24 19:01 Dose: 25 mcg/kg/min, 11.8 mls/hr Documented By: SHON Co-signed By: MAGED Admin: 09/13/24 15:00 Dose: 20 mcg/kg/min, 9.4 mls/hr Documented By: HELLEN Co-signed By: MAGED Phytonadione 10 mg/ Dextrose 51 mls @ 102 mls/hr IV NOW STA Stop: 09/13/24 15:41 Last Infusion: 09/13/24 18:30 Dose: Infused Documented By: Admin: 09/13/24 17:53 Dose: 102 mls/hr Documented By: MAGED Aztreonam 1,000 mg/ Dextrose 100 mls @ 100 mls/hr IV Q8H [facility] Stop: 09/27/24 15:29 Last Admin: 09/13/24 15:59 Dose: Not Given Documented By: MAGED Aztreonam 2,000 mg/ Dextrose 100 mls @ 100 mls/hr IV Q24H [facility]; Protocol Stop: 09/27/24 15:59 Last Infusion: 09/14/24 17:00 Dose: Infused Documented By: Admin: 09/14/24 15:52 Dose: 100 mls/hr Documented By: Infusion: 09/13/24 18:53 Dose: Infused Documented By: Admin: 09/13/24 17:53 Dose: 100 mls/hr Documented By: MAGED Pantoprazole Sodium (Protonix) 40 mg in 10 mls @ 5 mls/min IV DAILY [facility] Stop: 10/13/24 15:59 Last Admin: 09/14/24 08:25 Dose: 5 mls/min Documented By: Admin: 09/13/24 17:53 Dose: 5 mls/min Documented By: MAGED Metronidazole (Flagyl) 500 mg in 100 mls @ 100 mls/hr IV Q8H [facility]; Protocol Stop: 09/15/24 16:59 Last Infusion: 09/14/24 10:30 Dose: Infused Documented By: Admin: 09/14/24 08:25 Dose: 100 mls/hr Documented By: Infusion: 09/14/24 02:34 Dose: Infused Documented By: Admin: 09/14/24 00:38 Dose: 100 mls/hr Documented By: Infusion: 09/13/24 19:38 Dose: Infused Documented By: Admin: 09/13/24 18:38 Dose: 100 mls/hr Documented By: MAGED Doxycycline Hyclate 100 mg/ (Dextrose) 100 mls @ 50 mls/hr IV Q12H [facility] Stop: 09/18/24 21:59 Last Infusion: 09/14/24 12:45 Dose: Infused Documented By: Admin: 09/14/24 10:55 Dose: 50 mls/hr Documented By: Infusion: 09/14/24 00:14 Dose: Infused Documented By: Admin: 09/13/24 22:14 Dose: 50 mls/hr Documented By: SHON Vancomycin HCl 500 mg/ Sodium (Chloride) 110 mls @ 200 mls/hr IV TODAY@1300 ONE Stop: 09/14/24 13:32 Last Infusion: 09/14/24 14:44 Dose: Infused Documented By: Admin: 09/14/24 13:01 Dose: 200 mls/hr Documented By: TESSA Ioversol (Optiray 320 125ml) 125 ml IV ONCE ONE Stop: 09/11/24 01:46 Last Admin: 09/11/24 01:46 Dose: 118 ml Documented By: DIGNA Ioversol (Optiray 320 125ml) 116 ml IV ONCE ONE Stop: 09/13/24 16:56 Last Admin: 09/13/24 16:56 Dose: 116 ml Documented By: JUAN DANIEL Metoprolol Succinate (Metoprolol Succ 50mg Ext Rel Tab) 50 mg PO BID [facility] Stop: 10/10/24 21:09 Last Admin: 09/13/24 09:04 Dose: 50 mg Documented By: Admin: 09/12/24 20:54 Dose: 50 mg Documented By: Admin: 09/12/24 13:49 Dose: 50 mg Documented By: Admin: 09/11/24 20:42 Dose: 50 mg Documented By: Admin: 09/11/24 13:06 Dose: 50 mg Documented By: Admin: 09/10/24 21:53 Dose: 50 mg Documented By: SORAIDA Metoprolol Tartrate (Metoprolol Tartrate 1 Mg/Ml Vial) 2.5 mg IV NOW STA Stop: 09/12/24 23:10 Last Admin: 09/12/24 23:25 Dose: 2.5 mg Documented By: SORAIDA Metoprolol Tartrate (Metoprolol Tartrate 1 Mg/Ml Vial) 5 mg IV NOW STA Stop: 09/13/24 04:07 Last Admin: 09/13/24 04:25 Dose: 5 mg Documented By: SORAIDA Miscellaneous (No Heparin In Dialysis) 1 each N/A ONE ONE Stop: 09/11/24 08:03 Last Admin: 09/11/24 10:26 Dose: Not Given Documented By: LM Miscellaneous (No Heparin In Dialysis) 1 each N/A ONE ONE Stop: 09/12/24 07:01 Last Admin: 09/12/24 10:42 Dose: Not Given Documented By: CC Miscellaneous (Rapid Sequence Induction Bag) Confirm Administered Dose 1 each N/A .STK-MED ONE Stop: 09/13/24 14:31 Last Admin: 09/13/24 15:17 Dose: Not Given Documented By: MAGED Morphine Sulfate (Morphine Sulfate 10 Mg/0.5 Ml Udp) 5 mg PO Q3H PRN PRN Reason: Pain or Respiratory Distress Stop: 09/28/24 16:40 Last Admin: 09/14/24 17:21 Dose: 5 mg Documented By: TESSA Naloxone HCl (Naloxone Hcl 0.4 Mg/1 Ml Vial/Carp) 0.4 mg IV NOW STA Stop: 09/13/24 14:38 Last Admin: 09/13/24 14:39 Dose: 0.4 mg Documented By: MAGED Naloxone HCl (Naloxone Hcl 0.4 Mg/1 Ml Vial/Carp) Confirm Administered Dose 0.4 mg .ROUTE .STK-MED ONE Stop: 09/13/24 14:38 Last Admin: 09/13/24 15:17 Dose: Not Given Documented By: MAGED Propofol (Propofol Iv Emulsion 10 Mg/Ml 100 Ml Vial) Confirm Administered Dose 1,000 mg IV .STK-MED ONE Stop: 09/13/24 14:51 Last Admin: 09/13/24 15:42 Dose: Not Given Documented By: [facility] Sodium Zirconium Cyclosilicate (Sodium Zirconium Cyclosilicate 10 Gm Packet) 10 gm PO BID NIKKI Last Admin: 09/13/24 09:06 Dose: 10 gm Documented By: Admin: 09/12/24 20:54 Dose: 10 gm Documented By: AAAbhilash Admin: 09/12/24 13:48 Dose: 10 gm Documented By: Admin: 09/11/24 20:42 Dose: 10 gm Documented By: Admin: 09/11/24 17:07 Dose: Not Given Documented By: Vitamin B Complex/Folic Acid (Nephrocaps) 1 cap PO QAM NIKKI Stop: 10/11/24 08:59 Last Admin: 09/14/24 08:10 Dose: Not Given Documented By: Admin: 09/13/24 09:06 Dose: 1 cap Documented By: Admin: 09/12/24 13:48 Dose: 1 cap Documented By: Admin: 09/11/24 13:05 Dose: 1 cap Documented By: Description This is a 21 electrode EEG with a single channel dedicated to limited EKG. The electrodes were placed in accordance with the International 10-20 system.
--- NOTE | 2024-09-15 07:29 | Discharge Summary ---
Date of Service September 14, 2024 Admission HPI Per Admitting Provider Ms. Alexandra Arguello is a 38y/o F with PMHx of diet-controlled DM type II, ESRD on hemodialysis, history of acute thrombosis of brachiocephalic vein, HTN, cardiomegaly, GERD, restless leg syndrome, history of chest pains, history of syncope and collapse, history of migraine, history of anemia [baseline Hgb ~9- 11], history of transplant rejection, history of depression with anxiety, bipolar disorder who presents to the ED on 09/10/2024 with complaints of bilateral arm pain and generalized weakness. Patient also reports intermittent fevers at home and flulike symptoms. Denies any chest pain or shortness of breath. On exam, patient is lethargic but answers questions appropriately reports having severe pain. Patient reported that she was not feeling good and weak she did not go to dialysis on 09/09/2024. The weakness worsened this morning. She denies any nausea/vomiting/diarrhea/abdominal pain On arrival to the ED, labs remarkable for WBC 4, platelets 29, INR 1.2, NA 125, creatinine 5.3, chloride 83, anion gap 19, BUN 73, creatinine 10.5, glucose 129, AST 166, ALT 117 Respiratory panel negative Chest x-ray with possible infiltrate versus shadowing The patient will be admitted for management of severe thrombocytopenia and hyponatremia Admission Exam Per Admitting Provider Physical Exam: Lethargic on exam but arousable Constitutional: WD/WN, vitals as above + ill appearing Eyes: PERRL, conjunctivae normal, anicteric sclerae ENMT: external ear and nose normal, oropharynx normal Neck: trachea midline, no thyromegaly Respiratory: normal respiratory effort, lungs clear to auscultation Cardiovascular: RRR, no murmur, no edema Gastrointestinal (Abdomen): normal bowel sounds, soft, nontender, no hepatosplenomegaly Musculoskeletal: no cyanosis or clubbing, extremities motor strength 5/5 Skin: no rashes, warm and dry Neurologic: PERRL, EOMI, accommodation nl, no face palsy, no dysarthria Psychiatric: A+Ox3, euthymic affect Lymphatic: no cervical or axillary lymphadenopathy Principal Diagnosis Sepsis POA MSSA bacteremia Toxic encephalopathy CVA Discharge Exam Patient on September 14, 2024 Discharge Data Allergies Allergy/AdvReac Type Severity Reaction Status Date / Time cefaclor Allergy Intermediate Rash Verified 09/10/24 17:09 Cephalosporins Allergy Intermediate Rash Verified 09/10/24 17:09 amoxicillin AdvReac Intermediate VOMITING Verified 09/10/24 17:09 clavulanic acid AdvReac Intermediate VOMITING Verified 09/10/24 17:09 Consultations 09/10/24 16:40 ED Decision to Admit Stat 09/10/24 21:10 Consult Hematology Routine Consult Nephrology Routine 09/11/24 07:32 Consult Infectious Diseases Routine 09/11/24 11:01 Consult Cardiology Routine 09/14/24 12:22 Consult Palliative Care Routine Ordered Studies 09/10/24 22:45 US venous doppler LE BI Urgent 09/10/24 23:12 CT angio chest PE protocol Stat 09/11/24 14:02 US soft tissue ext ltd Routine 09/11/24 20:04 US venous doppler UE LT Urgent 09/12/24 11:24 CT head/brain wo con Urgent 09/13/24 12:28 MRI Brain [MR brain wo con] Urgent 09/13/24 15:48 CTA abdomen pelvis w con [CT angio abdomen pelvis w con] Urgent Hospital Course (1) ESRD on dialysis: (2) Generalized weakness: (3) Chronic systolic CHF (congestive heart failure): (4) Hypertension, essential: (5) Chest pain: (6) Stented coronary artery: (7) Ischemic cardiomyopathy: (8) Bipolar disorder: Plan Sepsis POA MSSA bacteremia Toxic encephalopathy CVA Comfort Care Patient is a 38-year-old female with extensive past medical history including ESRD on dialysis who presented to the ED on 09/10/2024 with complaints of trouble ambulating and weakness, found to have a critically low platelet count of 29. Blood culture 3 out of 4 on admission Growing MSSA CTA chest on admission did not show evidence of PE; multifocal patchy variable sized nodular infiltrate/consolidation involving both lungs, predominantly lower lobes. Patient was admitted to medical floor; was started on Zosyn for MSSA bacteremia. Patient mentation gradually worsened; ander dougherty was called on 09/13 for altered mental status and lethargy. Patient was taken to ICU and intubated. MRI brain shows numerous foci of acute infarct, primarily throughout the posterior cerebral hemisphere and throughout the cerebellum. Also, infarct on left thalamus and left caudate nucleus as well. CTA abdomen showed possible signs of mild ischemia. In the ICU, after discussion with patient family; compassionate extubation was done and patient was transition to comfort care on 09/14. Patient on 09/14/2024 at 23:02 pm Please note the above document was generated using voice recognition software. It may contain grammatical, syntax or spelling errors. Any formal questions or concerns about the content, text or information contained within the body of this dictation should be directly addressed to the provider for clarification Total Time Total Time Spent Total Time Spent (In Minutes): 10 Total Time Includes: Examination of the Patient, Discharge Planning, Medication Reconciliation, Communication With Other Providers and Other Discharge Plan Discharge Items Patient Disposition: Other Date/Time: 09/14/24 23:02
[2024-09-15 12:02] LABS: Hepatitis A Antibody IgM NON-REACTIVE (NON-REACTIVE); Hepatitis B Core Antibody IgM NON-REACTIVE (NON-REACTIVE)
[2024-09-15 20:17] LABS: Babesia microti DNA Not Detected (Not Detected)
[2024-09-15 23:47] LABS: Q Fever IgG, Phase I NEGATIVE; Q Fever Phase I IgM Antibody NEGATIVE; Q Fever Phase II IgG Antibody NEGATIVE; Q Fever Phase II IgM Antibody NEGATIVE; R. typhi IgG Ab NOT DETECTED; R. typhi IgM Ab NOT DETECTED; RMSF IgG Ab NOT DETECTED; RMSF IgM Ab NOT DETECTED
[2024-09-16 02:17] LABS: 18KDIGG Band NON-REACTIVE; 23KDIGG Band NON-REACTIVE; 23KDIGM Band NON-REACTIVE; 28KDIGG Band NON-REACTIVE; 30KDIGG Band NON-REACTIVE; 39KDIGG Band NON-REACTIVE; 39KDIGM Band NON-REACTIVE; 41KDIGG Band NON-REACTIVE; 41KDIGM Band NON-REACTIVE; 45KDIGG Band NON-REACTIVE; 58KDIGG Band NON-REACTIVE; 66KDIGG Band NON-REACTIVE; 93KDIGG Band NON-REACTIVE; Lyme Antibodies, WB IgG NEGATIVE (NEGATIVE); Lyme Antibodies, WB IgM NEGATIVE (NEGATIVE)
== END 2024-09-15 02:24 | disposition expired | DRG 871 ==
LOC: ED 13:57 → SUATTDRO 17:52 → 2S 17:52 → 1E 09-13 14:37 → 3W 09-14 22:58